=== PATIENT | female | born 1970 | race African-American/Black ===

== ENCOUNTER 2018-05-05 21:55 | Emergency (ER) | payer BC ==
--- NOTE | 2018-05-05 22:43 | EDPHYS ---
Physician Documentation [facility] Name: Nancie Ordonez Age: 47 yrs Sex: Female : 1970 Arrival Date: 05/05/2018 Time: 21:57 Bed 23 Private MD: Bay Atkinson ED Physician Maury Brush HPI: 05/06 02:31 This 47 yrs old Black Female presents to ER via Ambulatory with complaints of Back Pain snw - rad to LE. 02:31 The patient presents with pain that is acute, with no known mechanism of injury, and snw decreased range of motion. The symptoms are located in the Lateral neck pain and posterior right shoulder. Onset: The symptoms/episode began/occurred suddenly, this morning, and became persistent. Location: right arm. Associated signs and symptoms: The patient has no apparent associated signs or symptoms. The problem was sustained from unknown cause. Severity of symptoms: At their worst the symptoms were moderate, severe. The patient has not experienced similar symptoms in the past. It is unknown whether or not the patient has recently seen a physician. 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 - Social history:: Smoking status: Patient/guardian denies using tobacco, Patient uses alcohol, occasionally. Patient/guardian denies using street drugs. - Ebola Screening: : No symptoms or risks identified at this time. ROS: 05/06 02:29 Constitutional: Negative for fever, chills, and weight loss, Eyes: Negative for injury, snw pain, redness, and discharge, ENT: Negative for injury, pain, and discharge, Cardiovascular: Negative for chest pain, palpitations, and edema, Respiratory: Negative for shortness of breath, cough, wheezing, and pleuritic chest pain, Abdomen/GI: Negative for abdominal pain, nausea, vomiting, diarrhea, and constipation, Back: Negative for injury and pain, : Negative for injury, bleeding, discharge, and swelling, Skin: Negative for injury, rash, and discoloration, Neuro: Negative for headache, weakness, numbness, tingling, and seizure. Neck: Positive for pain with movement, tenderness. MS/extremity: Positive for pain, of the neck and shoulder. Exam: 02:28 Constitutional: This is a well developed, well nourished patient who is awake, alert, snw and in no acute distress. Head/Face: Normocephalic, atraumatic. Eyes: Pupils equal round and reactive to light, extra-ocular motions intact. Lids and lashes normal. Conjunctiva and sclera are non-icteric and not injected. Cornea within normal limits. Periorbital areas with no swelling, redness, or edema. ENT: Nares patent. No nasal discharge, no septal abnormalities noted. Tympanic membranes are normal and external auditory canals are clear. Oropharynx with no redness, swelling, or masses, exudates, or evidence of obstruction, uvula midline. Mucous membranes moist. Chest/axilla: Normal chest wall appearance and motion. Nontender with no deformity. No lesions are appreciated. Cardiovascular: Regular rate and rhythm with a normal S1 and S2. No gallops, murmurs, or rubs. Normal PMI, no JVD. No pulse deficits. Respiratory: Lungs have equal breath sounds bilaterally, clear to auscultation and percussion. No rales, rhonchi or wheezes noted. No increased work of breathing, no retractions or nasal flaring. Abdomen/GI: Soft, non-tender, with normal bowel sounds. No distension or tympany. No guarding or rebound. No evidence of tenderness throughout. Back: No spinal tenderness. No costovertebral tenderness. Full range of motion. Skin: Warm, dry with normal turgor. Normal color with no rashes, no lesions, and no evidence of cellulitis. Neuro: Awake and alert, GCS 15, oriented to person, place, time, and situation. Cranial nerves II-XII grossly intact. Motor strength 5/5 in all extremities. Sensory grossly intact. Cerebellar exam normal. Normal gait. Psych: Awake, alert, with orientation to person, place and time. Behavior, mood, and affect are within normal limits. 02:28 Musculoskeletal/extremity: Extremities: grossly normal except: noted in the right lateral neck and posterior shoulder: decreased ROM, pain, ROM: limited active range of motion due to pain, Circulation is intact in all extremities. Sensation intact. 02:28 Neuro: Exam negative for acute changes. Vital Signs: 05/05 22:40 BP 125 / 87; Pulse 70; Resp 18; Temp 98.3(O); Pulse Ox 100% on R/A; Weight 76.2 kg; mg2 Height 5 ft. 3 in. (160.02 cm); Pain 10/10; 23:14 BP 122 / 78; Pulse 80; Resp 18; Pulse Ox 100% on R/A; Pain 4/10; mg2 22:40 Body Mass Index 29.76 (76.20 kg, 160.02 cm) mg2 MDM: 22:26 Patient medically screened. snw 05/06 02:30 Data reviewed: vital signs, nurses notes. Data interpreted: Pulse oximetry: on room air snw is 100 %. Interpretation: normal. Counseling: I had a detailed discussion with the patient and/or guardian regarding: the historical points, exam findings, and any diagnostic results supporting the discharge/admit diagnosis, the need for outpatient follow up, to return to the emergency department if symptoms worsen or persist or if there are any questions or concerns that arise at home. Special discussion: Based on the history and exam findings, there is no indication for further emergent testing or inpatient evaluation. I discussed with the patient/guardian the need to see the primary care provider for further evaluation of the symptoms. Administered Medications: 05/05 22:42 CANCELLED (other intervention used): SOLU-Medrol 125 mg IVP once snw 23:01 Drug: Valium 2 mg Route: PO; mg2 23:01 Follow up: Response: No adverse reaction; Medication administered at discharge. mg2 23:01 Drug: SOLU-Medrol 125 mg Route: IM; Site: right gluteus; mg2 23:01 Follow up: Response: No adverse reaction; Medication administered at discharge. mg2 Disposition: 05/06 06:30 Co-signature as Attending Physician, Maury Brush MD I agree with the assessment and tw4 plan of care. Attestation: The patient's history, exam findings, diagnostics, and a summary of any interventions or procedures was reviewed in detail with Cate GARCIA. Disposition: 05/05/18 22:43 Discharged to Home. Impression: Radiculopathy, cervical region. - Condition is Stable. - Discharge Instructions: Cervical Radiculopathy. - Prescriptions for Prednisone 20 mg Oral Tablet - take 1 tablet by ORAL route every 12 hours for 5 days; 10 tablet. orphenadrine citrate 100 mg Oral Tablet Sustained Release - take 1 tablet by ORAL route 2 times per day As needed; 20 tablet. - Medication Reconciliation Form, Thank You Letter, Antibiotic Education, Prescription Opioid Use form. - Follow up: Bay Atkinson MD; When: 2 - 3 days; Reason: Recheck today's complaints, Continuance of care, Re-evaluation by your physician. Follow up: Emergency Department; When: As needed; Reason: Worsening of condition. Signatures: Cate Kern FNP-C FNP-Csnw Maury Brush MD MD tw4 Chad Hayden RN RN mg2 Corrections: (The following items were deleted from the chart) 05/05 22:42 22:42 SOLU-Medrol 125 mg IVP once ordered. snw snw 23:14 22:43 05/05/2018 22:43 Discharged to Home. Impression: Radiculopathy, cervical region. mg2 Condition is Stable. Forms are Medication Reconciliation Form, Thank You Letter, Antibiotic Education, Prescription Opioid Use. Follow up: Bay Atkinson; When: 2 - 3 days; Reason: Recheck today's complaints, Continuance of care, Re-evaluation by your physician. Follow up: Emergency Department; When: As needed; Reason: Worsening of condition. snw
--- NOTE | 2018-05-05 22:43 | ER ---
Nurse's Notes [facility] Name: Nancie Ordonez Age: 47 yrs Sex: Female : 1970 Arrival Date: 05/05/2018 Time: 21:57 Bed 23 Private MD: Bay Atkinson Diagnosis: Radiculopathy, cervical region Presentation: 05/05 22:35 Presenting complaint: Patient states: she has neck pain radiating to the shoulder and mg2 back since morning. denies trauma. Transition of care: patient was not received from another setting of care. Onset of symptoms was May 05, 2018. Risk Assessment: Do you want to hurt yourself or someone else? Patient reports no desire to harm self or others. Initial Sepsis Screen: Does the patient meet any 2 criteria? No. Patient's initial sepsis screen is negative. Does the patient have a suspected source of infection? No. Patient's initial sepsis screen is negative. Care prior to arrival: None. 22:35 Method Of Arrival: Ambulatory mg2 22:35 Acuity: DEEPALI 4 mg2 Triage Assessment: 23:14 General: Behavior is calm, cooperative. 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 - Social history:: Smoking status: Patient/guardian denies using tobacco, Patient uses alcohol, occasionally. Patient/guardian denies using street drugs. - Ebola Screening: : No symptoms or risks identified at this time. Screenin:41 Abuse screen: Denies threats or abuse. Denies injuries from another. Nutritional mg2 screening: No deficits noted. Tuberculosis screening: No symptoms or risk factors identified. Fall Risk None identified. Assessment: 22:41 General: Appears uncomfortable. Pain: Complains of pain in neck, Pain radiates to mg2 shoulder and back Pain currently is 10 out of 10 on a pain scale. Quality of pain is described as aching, Pain began gradually, this morning Is intermittent, Alleviated by repositioning, relaxation. Neuro: Level of Consciousness is awake, alert, obeys commands, Oriented to person, place, time, situation. Cardiovascular: Capillary refill < 3 seconds Patient's skin is warm and dry. Respiratory: Airway is patent Respiratory effort is even, unlabored, Respiratory pattern is regular, symmetrical. GI: No signs and/or symptoms were reported involving the gastrointestinal system. : No signs and/or symptoms were reported regarding the genitourinary system. EENT: No signs and/or symptoms were reported regarding the EENT system. Derm: Skin is intact, Skin is pink, warm \T\ dry. normal. Musculoskeletal: Circulation, motion, and sensation intact. Reports pain in neck, shoulder and back since morning. Pain is 10 out of 10 on a pain scale. Vital Signs: 22:40 BP 125 / 87; Pulse 70; Resp 18; Temp 98.3(O); Pulse Ox 100% on R/A; Weight 76.2 kg; mg2 Height 5 ft. 3 in. (160.02 cm); Pain 10/10; 23:14 BP 122 / 78; Pulse 80; Resp 18; Pulse Ox 100% on R/A; Pain 4/10; mg2 22:40 Body Mass Index 29.76 (76.20 kg, 160.02 cm) mg2 ED Course: 21:57 Patient arrived in ED. am2 21:57 Bay Atkinson MD is Private Physician. am2 22:25 Cate Kern FNP-C is [facility]. snw 22:26 Maury Brush MD is Attending Physician. snw 22:26 Chad Hayden, NICCI is Primary Nurse. mg2 22:36 Triage completed. mg2 22:41 Arm band placed on. mg2 22:42 Bay Atkinson MD is Referral Physician. snw 22:43 Patient has correct armband on for positive identification. mg2 23:13 No provider procedures requiring assistance completed. Patient did not have IV access mg2 during this emergency room visit. Administered Medications: 22:42 CANCELLED (other intervention used): SOLU-Medrol 125 mg IVP once snw 23:01 Drug: Valium 2 mg Route: PO; mg2 23:01 Follow up: Response: No adverse reaction; Medication administered at discharge. mg2 23:01 Drug: SOLU-Medrol 125 mg Route: IM; Site: right gluteus; mg2 23:01 Follow up: Response: No adverse reaction; Medication administered at discharge. mg2 Outcome: 22:43 Discharge ordered by . snsoo 23:14 Discharged to home ambulatory, with family. mg2 23:14 Condition: stable 23:14 Discharge instructions given to patient, family, Instructed on discharge instructions, follow up and referral plans. medication usage, Demonstrated understanding of instructions, follow-up care, medications, Prescriptions given X 2. 23:14 Patient left the ED. mg2 Signatures: Cate Kern, PROCESS ENG-C PROCESS ENG-Csnw Luly Villalpando am2 Chad Hayden, RN RN mg2
[2018-05-05] MEDS ORDERED: METHYLPREDNISOLONE 125 MG INJ ONE (23:00)
[2018-05-05] MEDS ORDERED: DIAZEPAM 2 MG TABLET ONE (23:01)
== END 2018-05-05 23:14 | disposition home or self-care (01) ==
LOC: ER 21:55
DX: M54.12 Radiculopathy, cervical region (principal); I10 Essential (primary) hypertension; Z88.6 Allergy status to analgesic agent
CPT/HCPCS: 96372; 99283; J2930

== ENCOUNTER 2019-07-28 10:05 | Emergency (ER) | payer BC ==
--- OUTSIDE RECORDS SUMMARY | 2019-07-28 10:07 | XMS REPORT ---
:1970 [facility] Address [address] [place] [address] Dr. Crawford [address] [place] [id number] Care Team Providers Name Role Phone Unavailable Unavailable Unavailable Payers Payer Name Policy Type Policy Number Effective Date Expiration Date Problems This patient has no known problems. Allergies, Adverse Reactions, Alerts Allergy Allergy Status Severity Reaction(s) Onset Inactive Treating Comments Name Type Date Date Clinician naproxen MAYELA Active YASMINE 2017-10 00:00:0 0 Medications This patient has no known medications.
[2019-07-28] MEDS ORDERED: OSELTAMIVIR 75 MG CAP ONE (12:16)
--- NOTE | 2019-07-28 12:23 | ER ---
Nurse's Notes [facility] Name: Nancie Ordonez Age: 48 yrs Sex: Female : 1970 Arrival Date: 07/28/2019 Time: 10:06 Bed 13 Private MD: Diagnosis: Malaise and fatigue Presentation: 07/28 10:11 Presenting complaint: Patient states: I have been feeling sick since last week, having la1 body aches, chills sore throat. Transition of care: patient was not received from another setting of care. Onset of symptoms was July 28, 2019. Risk Assessment: Do you want to hurt yourself or someone else? Patient reports no desire to harm self or others. Initial Sepsis Screen: Does the patient meet any 2 criteria? No. Patient's initial sepsis screen is negative. Does the patient have a suspected source of infection? No. Patient's initial sepsis screen is negative. Care prior to arrival: None. 10:11 Method Of Arrival: Ambulatory la1 10:11 Acuity: DEEPALI 4 la1 Historical: - Allergies: 10:12 Naproxen; la1 - PMHx: 10:12 Arthritis; Gout; Hypertension; la1 - Immunization history:: Adult Immunizations up to date. - Social history:: Smoking status: Patient/guardian denies using tobacco. - Ebola Screening: : No symptoms or risks identified at this time. Screenin:45 Abuse screen: Denies threats or abuse. Nutritional screening: No deficits noted. aa5 Tuberculosis screening: No symptoms or risk factors identified. Fall Risk None identified. Assessment: 11:30 General: Appears comfortable, Behavior is calm, cooperative. Pain: Complains of pain in aa5 whole body Pain does not radiate. Pain currently is 10 out of 10 on a pain scale. Quality of pain is described as aching, Pain began 5 days ago Is continuous. Neuro: Level of Consciousness is awake, alert, obeys commands, Oriented to person, place, time, situation. Cardiovascular: Heart tones S1 S2 present Rhythm is regular. Respiratory: Reports cough Airway is patent Respiratory effort is even, unlabored, Respiratory pattern is regular, symmetrical. GI: Abdomen is round Bowel sounds present X 4 quads. Abd is soft and non tender X 4 quads. : No signs and/or symptoms were reported regarding the genitourinary system. EENT: Reports nasal congestion. Derm: Skin is dry, Skin is normal, Skin temperature is warm. Musculoskeletal: Range of motion: intact in all extremities. 12:35 Reassessment: Pt requesting prescription for muscle relaxants, pt requesting to speak aa5 to MD before d/c home. MD notified. . 12:40 Reassessment: MD at bedside speaking to patient. . aa5 Vital Signs: 10:12 BP 133 / 98; Pulse 95; Resp 16; Temp 97.7; Pulse Ox 100% ; Weight 78.47 kg; Height 5 la1 ft. 3 in. (160.02 cm); 11:50 BP 141 / 99; Pulse 80; Resp 14 S; Pulse Ox 100% on R/A; Pain 10/10; aa5 10:12 Body Mass Index 30.65 (78.47 kg, 160.02 cm) la1 ED Course: 10:06 Patient arrived in ED. as 10:12 Triage completed. la1 10:12 Arm band placed on right wrist. la1 11:28 Yemi Oliveira MD is Attending Physician. vargas 11:45 Patient has correct armband on for positive identification. Bed in low position. Call aa5 light in reach. Side rails up X 1. 11:47 Barbara Washington, RN is Primary Nurse. aa5 12:42 No provider procedures requiring assistance completed. Patient did not have IV access aa5 during this emergency room visit. Administered Medications: 12:41 Drug: Tamiflu 75 mg Route: PO; aa5 12:41 Follow up: Response: Medication administered at discharge. aa5 Outcome: 12:22 Discharge ordered by . [facility] 12:42 Discharged to home ambulatory. aa5 12:42 Condition: stable 12:42 Discharge instructions given to patient, Instructed on discharge instructions, follow up and referral plans. medication usage, Demonstrated understanding of instructions, follow-up care, medications, Prescriptions given X 1. 12:42 Patient left the ED. aa5 Signatures: Yemi Oliveira MD MD cha Martinez, Amelia as Calderon, Audri, RN RN aa5 Bhaskar Garcia RN RN la1
--- NOTE | 2019-07-28 12:23 | EDPHYS ---
Physician Documentation [facility] Name: Nancie Ordonez Age: 48 yrs Sex: Female : 1970 Arrival Date: 07/28/2019 Time: 10:06 Bed 13 Private MD: ED Physician Yemi Oliveira HPI: 07/28 12:13 This 48 yrs old Black Female presents to ER via Ambulatory with complaints of Flu vargas Symptoms. 12:13 weakness, body aches. The patient or guardian reports cough. Onset: The vargas symptoms/episode began/occurred 2 day(s) ago. Severity of symptoms: At their worst the symptoms were mild, in the emergency department the symptoms are unchanged. Associated signs and symptoms: The patient has no apparent associated signs or symptoms. Historical: - Allergies: 10:12 Naproxen; la1 - PMHx: 10:12 Arthritis; Gout; Hypertension; la1 - Immunization history:: Adult Immunizations up to date. - Social history:: Smoking status: Patient/guardian denies using tobacco. - Ebola Screening: : No symptoms or risks identified at this time. ROS: 12:16 Constitutional: Negative for fever, chills, and weight loss, Eyes: Negative for injury, vargas pain, redness, and discharge, ENT: Negative for injury, pain, and discharge, Neck: Negative for injury, pain, and swelling, Cardiovascular: Negative for chest pain, palpitations, and edema, Respiratory: Negative for shortness of breath, cough, wheezing, and pleuritic chest pain, Abdomen/GI: Negative for abdominal pain, nausea, vomiting, diarrhea, and constipation, Back: Negative for injury and pain, : Negative for injury, bleeding, discharge, and swelling, MS/Extremity: Negative for injury and deformity, Skin: Negative for injury, rash, and discoloration, Neuro: Negative for headache, weakness, numbness, tingling, and seizure, Psych: Negative for depression, anxiety, suicide ideation, homicidal ideation, and hallucinations, Allergy/Immunology: Negative for hives, rash, and allergies, Endocrine: Negative for neck swelling, polydipsia, polyuria, polyphagia, and marked weight changes, Hematologic/Lymphatic: Negative for swollen nodes, abnormal bleeding, and unusual bruising. Exam: 12:16 Constitutional: This is a well developed, well nourished patient who is awake, alert, vragas and in no acute distress. Head/Face: Normocephalic, atraumatic. Eyes: Pupils equal round and reactive to light, extra-ocular motions intact. Lids and lashes normal. Conjunctiva and sclera are non-icteric and not injected. Cornea within normal limits. Periorbital areas with no swelling, redness, or edema. ENT: Nares patent. No nasal discharge, no septal abnormalities noted. Tympanic membranes are normal and external auditory canals are clear. Oropharynx with no redness, swelling, or masses, exudates, or evidence of obstruction, uvula midline. Mucous membranes moist. Neck: Trachea midline, no thyromegaly or masses palpated, and no cervical lymphadenopathy. Supple, full range of motion without nuchal rigidity, or vertebral point tenderness. No Meningismus. Chest/axilla: Normal chest wall appearance and motion. Nontender with no deformity. No lesions are appreciated. Cardiovascular: Regular rate and rhythm with a normal S1 and S2. No gallops, murmurs, or rubs. Normal PMI, no JVD. No pulse deficits. Respiratory: Lungs have equal breath sounds bilaterally, clear to auscultation and percussion. No rales, rhonchi or wheezes noted. No increased work of breathing, no retractions or nasal flaring. Abdomen/GI: Soft, non-tender, with normal bowel sounds. No distension or tympany. No guarding or rebound. No evidence of tenderness throughout. Back: No spinal tenderness. No costovertebral tenderness. Full range of motion. Female : Normal external genitalia. Skin: Warm, dry with normal turgor. Normal color with no rashes, no lesions, and no evidence of cellulitis. MS/ Extremity: Pulses equal, no cyanosis. Neurovascular intact. Full, normal range of motion. Neuro: Awake and alert, GCS 15, oriented to person, place, time, and situation. Cranial nerves II-XII grossly intact. Motor strength 5/5 in all extremities. Sensory grossly intact. Cerebellar exam normal. Normal gait. Psych: Awake, alert, with orientation to person, place and time. Behavior, mood, and affect are within normal limits. Vital Signs: 10:12 BP 133 / 98; Pulse 95; Resp 16; Temp 97.7; Pulse Ox 100% ; Weight 78.47 kg; Height 5 la1 ft. 3 in. (160.02 cm); 11:50 BP 141 / 99; Pulse 80; Resp 14 S; Pulse Ox 100% on R/A; Pain 06/12; aa5 10:12 Body Mass Index 30.65 (78.47 kg, 160.02 cm) la1 MDM: 11:28 Patient medically screened. [facility] 11:28 Patient medically screened. [facility] 12:19 Data reviewed: vital signs, nurses notes, lab test result(s), Flu: negative. [facility] 07/28 10:12 Order name: Strep; Complete Time: 12:10 [facility] 07/28 10:12 Order name: Flu; Complete Time: 12:10 [facility] 07/28 10:43 Order name: Throat Culture EDTN Administered Medications: 12:41 Drug: Tamiflu 75 mg Route: PO; aa 12:41 Follow up: Response: Medication administered at discharge. aa5 Disposition: 07/28/19 12:22 Discharged to Home. Impression: Malaise and fatigue. - Condition is Stable. - Discharge Instructions: Weakness, Weakness, [id number]. - Prescriptions for Tamiflu 75 mg Oral Capsule - take 1 tablet by ORAL route every 12 hours for 5 days; 10 tablet. - Medication Reconciliation Form, Thank You Letter, Antibiotic Education, Prescription Opioid Use, Work release form form. - Follow up: Private Physician; When: 2 - 3 days; Reason: Recheck today's complaints, Continuance of care, Re-evaluation by your physician. - Problem is new. - Symptoms have improved. 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 Impression: Malaise and fatigue. Condition aa5 is Stable. Forms are Medication Reconciliation Form, Thank You Letter, Antibiotic Education, Prescription Opioid Use. Follow up: Private Physician; When: 2 - 3 days; Reason: Recheck today's complaints, Continuance of care, Re-evaluation by your physician. Problem is new. Symptoms have improved. [facility]
[2019-07-28 13:08] VITALS: TEMP 97.7; O2SAT 100
[2019-07-28 13:10] VITALS: BP 141/99
== END 2019-07-28 12:42 | disposition home or self-care (01) ==
LOC: ER 10:05
DX: R53.81 Other malaise (principal); R53.83 Other fatigue; I10 Essential (primary) hypertension; Z88.6 Allergy status to analgesic agent
CPT/HCPCS: 87070; 87081; 87804; 99283

== ENCOUNTER 2019-09-26 16:37 | Emergency (ER) | payer BC, OTHER, SELFPAY ==
--- OUTSIDE RECORDS SUMMARY | 2019-09-26 16:39 | XMS REPORT ---
:1970 [facility] Address [address] [place] [address] Dr. Crawford [address] [place] [id number] Care Team Providers Name Role Phone Unavailable [...]
[2019-09-26] MEDS ORDERED: FLUCONAZOLE 100 MG TAB ONE (18:05)
[2019-09-26] MEDS ORDERED: PROMETHAZINE 25 MG TABLET ONE (18:05)
[2019-09-26] MEDS ORDERED: TRAMADOL HCL 50 MG TAB ONE (18:20)
[2019-09-26 18:44] LABS: Urine Blood 2+ (NEG); Urine Glucose NEGATIVE (NEG); Urine Protein NEGATIVE (NEG); Urine Specific Gravity 1.025 (1.005-1.030); Urine pH 5.5 (5.0-7.0)
[2019-09-26 19:26] LABS: Urine Bacteria >50 /HPF (<20)
[2019-09-26 19:27] LABS: Urine Culture Reflex Order NOT NEEDED
--- NOTE | 2019-09-26 19:30 | ER ---
Nurse's Notes [facility] Name: Nancie Ordonez Age: 48 yrs Sex: Female : 1970 Arrival Date: 09/26/2019 Time: 16:38 Bed 7 Private MD: Diagnosis: Urinary tract infection, site not specified Presentation: 09/26 16:58 Presenting complaint: Patient states: headache, productive cough, sore throat, sneezing aa5 that began 1 week ago. Transition of care: patient was not received from another setting of care. Onset of symptoms was September 2019. Risk Assessment: Do you want to hurt yourself or someone else? Patient reports no desire to harm self or others. Initial Sepsis Screen: Does the patient meet any 2 criteria? HR > 90 bpm. Does the patient have a suspected source of infection? Yes: Productive cough/pneumonia. Care prior to arrival: None. 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 - Coronavirus screen:: The patient has NOT traveled to [place], [place], or [place] in the past 14 days. The patient has NOT had contact with known/suspected case of Coronavirus?. - Social history:: Smoking status: Patient denies any tobacco usage or history of. - Ebola Screening: : No symptoms or risks identified at this time. Screenin:09 Abuse screen: Denies threats or abuse. Denies injuries from another. Nutritional jl7 screening: No deficits noted. Tuberculosis screening: No symptoms or risk factors identified. Fall Risk None identified. Assessment: 18:09 General: Appears in no apparent distress. uncomfortable, Behavior is calm, cooperative, jl7 appropriate for age. Pain: Complains of pain in DURON Pain currently is 9 out of 10 on a pain scale. Neuro: Level of Consciousness is awake, alert, obeys commands, Oriented to person, place, time, situation, Moves all extremities. Full function Gait is steady, Speech is normal. Cardiovascular: Patient's skin is warm and dry. Respiratory: Airway is patent Respiratory effort is even, unlabored, Respiratory pattern is regular, symmetrical. GI: Reports nausea, vomiting. : No signs and/or symptoms were reported regarding the genitourinary system. EENT: No signs and/or symptoms were reported regarding the EENT system. Derm: Skin is dry, Skin is normal, Skin temperature is warm. 19:15 Reassessment: Patient is alert, oriented x 3, equal unlabored respirations, skin vc warm/dry/pink. Patient resting with eyes closed, at bedside. 19:15 General: Appears in no apparent distress. uncomfortable, Behavior is calm, quiet. vc Neuro: Level of Consciousness is awake, obeys commands, lethargic, Oriented to person, place, time, situation. Cardiovascular: Patient's skin is warm and dry. Respiratory: Respiratory effort is even, unlabored. GI: No signs and/or symptoms were reported involving the gastrointestinal system. : No signs and/or symptoms were reported regarding the genitourinary system. EENT: Reports photophobia. Derm: Skin temperature is warm. Musculoskeletal: Circulation, motion, and sensation intact. Range of motion: intact in all extremities. Vital Signs: 16:59 BP 144 / 97; Pulse 98; Resp 18 S; Temp 98.7(O); Pulse Ox 100% on R/A; Weight 81.65 kg aa5 (R); Height 5 ft. 3 in. (160.02 cm) (R); Pain 9/10; 18:45 BP 130 / 83; Pulse 115; Resp 16 S; Pulse Ox 100% on R/A; jl7 19:00 BP 122 / 76; Pulse 85; Resp 18; Pulse Ox 100% on R/A; vc 19:30 BP 116 / 81; Pulse 85; Resp 15; Pulse Ox 100% on R/A; vc 16:59 Body Mass Index 31.89 (81.65 kg, 160.02 cm) aa5 ED Course: 16:38 Patient arrived in ED. as 16:58 Arm band placed on. aa5 16:59 Triage completed. aa5 17:06 Tiago Reyes, RN is Primary Nurse. bp 17:07 Cate Kern FNP-C is PHCP. snw 17:07 Shai Guzman MD is Attending Physician. snw 18:09 Patient has correct armband on for positive identification. Bed in low position. Call jl7 light in reach. Side rails up X 1. Pulse ox on. NIBP on. 18:14 Primary Nurse role handed off by Tiago Reyes RN jl7 18:14 Aniyah Merrill RN is Primary Nurse. jl7 19:40 No provider procedures requiring assistance completed. vc 19:40 Patient did not have IV access during this emergency room visit. vc 19:43 Primary Nurse role handed off by Aniyah Merrill RN vc 19:43 Julia Dale, NICCI is Primary Nurse. vc Administered Medications: 18:11 Drug: Phenergan 25 mg Route: PO; jl7 18:42 Follow up: Response: No adverse reaction; Nausea is decreased jl7 18:14 Drug: DiFLUcan 400 mg Route: PO; jl7 18:43 Follow up: Response: No adverse reaction jl7 18:23 Drug: UltRAM 50 mg Route: PO; jl7 19:42 Follow up: Response: No adverse reaction; Pain is decreased vc 19:42 Drug: Macrobid 100 mg Route: PO; vc 19:42 Follow up: Response: Medication administered at discharge. vc Outcome: 19:29 Discharge ordered by . snw 19:42 Discharged to home ambulatory, with significant other. vc 19:42 Condition: good 19:42 Discharge instructions given to patient, significant other, Instructed on discharge instructions, medication usage, Demonstrated understanding of instructions, follow-up care, medications, Prescriptions given X 2. 19:43 Patient left the ED. vc Signatures: Cate Kern FNP-C [employer] OPERATOR-Csnw Sarah Garzon Audri, RN RN aa5 Aniyah Merrill, NICCI RN jl7 Tiago Reyes, NICCI RN bp Julia Dale, NICCI RN vc Corrections: (The following items were deleted from the chart) 21:28 21:26 No provider procedures requiring assistance completed. vc vc :28 21:28 Pain: Also complains of vc vc
--- NOTE | 2019-09-26 19:30 | EDPHYS ---
Physician Documentation [facility] Name: Nancie Ordonez Age: 48 yrs Sex: Female : 1970 Arrival Date: 09/26/2019 Time: 16:38 Bed 7 Private MD: ED Physician Shai Guzman HPI: 09/26 18:43 This 48 yrs old Black Female presents to ER via Ambulatory with complaints of Headache. snw 18:43 The patient complains of pain to the top of head and forehead. The patient describes snw the headache as a pressure. Onset: The symptoms/episode began/occurred 1 week(s) ago, and became persistent. Associated signs and symptoms: The patient has no apparent associated signs or symptoms. Headache History: Denies prior headaches. The symptoms are alleviated by nothing. The patient has not experienced similar symptoms in the past. pt had dental work 3 weeks ago, abx for about 2 weeks, completed one week ago. 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 - Coronavirus screen:: The patient has NOT traveled to [place], [place], or [place] in the past 14 days. The patient has NOT had contact with known/suspected case of Coronavirus?. - Social history:: Smoking status: Patient denies any tobacco usage or history of. - Ebola Screening: : No symptoms or risks identified at this time. ROS: 18:42 Constitutional: Negative for fever, chills, and weight loss, Eyes: Negative for injury, snw pain, redness, and discharge, ENT: Negative for injury, pain, and discharge, Neck: Negative for injury, pain, and swelling, Cardiovascular: Negative for chest pain, palpitations, and edema, Respiratory: Negative for shortness of breath, cough, wheezing, and pleuritic chest pain, Abdomen/GI: Negative for abdominal pain, nausea, vomiting, diarrhea, and constipation, Back: Negative for injury and pain, : Negative for injury, bleeding, discharge, and swelling, MS/Extremity: Negative for injury and deformity, Skin: Negative for injury, rash, and discoloration. 18:42 Neuro: Positive for headache, of the top of head and forehead. Exam: 18:27 Constitutional: This is a well developed, well nourished patient who is awake, alert, snw and in no acute distress. Head/Face: Normocephalic, atraumatic. Eyes: Pupils equal round and reactive to light, extra-ocular motions intact. Lids and lashes normal. Conjunctiva and sclera are non-icteric and not injected. Cornea within normal limits. Periorbital areas with no swelling, redness, or edema. Neck: Trachea midline, no thyromegaly or masses palpated, and no cervical lymphadenopathy. Supple, full range of motion without nuchal rigidity, or vertebral point tenderness. No Meningismus. Chest/axilla: Normal chest wall appearance and motion. Nontender with no deformity. No lesions are appreciated. Cardiovascular: Regular rate and rhythm with a normal S1 and S2. No gallops, murmurs, or rubs. Normal PMI, no JVD. No pulse deficits. Respiratory: Lungs have equal breath sounds bilaterally, clear to auscultation and percussion. No rales, rhonchi or wheezes noted. No increased work of breathing, no retractions or nasal flaring. Abdomen/GI: Soft, non-tender, with normal bowel sounds. No distension or tympany. No guarding or rebound. No evidence of tenderness throughout. Back: No spinal tenderness. No costovertebral tenderness. Full range of motion. Skin: Warm, dry with normal turgor. Normal color with no rashes, no lesions, and no evidence of cellulitis. MS/ Extremity: Pulses equal, no cyanosis. Neurovascular intact. Full, normal range of motion. Neuro: Awake and alert, GCS 15, oriented to person, place, time, and situation. Cranial nerves II-XII grossly intact. Motor strength 5/5 in all extremities. Sensory grossly intact. Cerebellar exam normal. Normal gait. Psych: Awake, alert, with orientation to person, place and time. Behavior, mood, and affect are within normal limits. 18:27 ENT: Ear canal(s): are normal, TM's: are normal, Nose: is normal, Mouth: Oral mucosa: noted to have obvious thrush, Posterior pharynx: is normal, erythema, that is mild, Voice: is normal. Vital Signs: 16:59 BP 144 / 97; Pulse 98; Resp 18 S; Temp 98.7(O); Pulse Ox 100% on R/A; Weight 81.65 kg aa5 (R); Height 5 ft. 3 in. (160.02 cm) (R); Pain 9/10; 18:45 BP 130 / 83; Pulse 115; Resp 16 S; Pulse Ox 100% on R/A; jl7 19:00 BP 122 / 76; Pulse 85; Resp 18; Pulse Ox 100% on R/A; vc 19:30 BP 116 / 81; Pulse 85; Resp 15; Pulse Ox 100% on R/A; vc 16:59 Body Mass Index 31.89 (81.65 kg, 160.02 cm) aa5 MDM: 17:08 Patient medically screened. snw 19:30 Data reviewed: vital signs, nurses notes. Data interpreted: Pulse oximetry: on room air snw is 100 %. Interpretation: normal. Counseling: I had a detailed discussion with the patient and/or guardian regarding: the historical points, exam findings, and any diagnostic results supporting the discharge/admit diagnosis, lab results, the need for outpatient follow up, to return to the emergency department if symptoms worsen or persist or if there are any questions or concerns that arise at home. Special discussion: I have referred the patient to see his PCP for further evaluation of high blood pressure. Based on the history and exam findings, there is no indication for further emergent testing or inpatient evaluation. I discussed with the patient/guardian the need to see the primary care provider for further evaluation of the symptoms. 09/26 17:51 Order name: Urine Culture snw 09/26 17:51 Order name: Urine Microscopic Only; Complete Time: 19:28 snw 09/26 18:21 Order name: Urine Dipstick--Ancillary (enter results); Complete Time: 18:44 eb 09/26 18:21 Order name: Urine --Ancillary (enter results); Complete Time: 18:44 eb 09/26 17:51 Order name: Urine Test (obtain specimen); Complete Time: 18:14 snw 09/26 17:51 Order name: Urine Dipstick-Ancillary (obtain specimen); Complete Time: 18:14 snw Administered Medications: 18:11 Drug: Phenergan 25 mg Route: PO; jl7 18:42 Follow up: Response: No adverse reaction; Nausea is decreased jl7 18:14 Drug: DiFLUcan 400 mg Route: PO; jl7 18:43 Follow up: Response: No adverse reaction jl7 18:23 Drug: UltRAM 50 mg Route: PO; jl7 19:42 Follow up: Response: No adverse reaction; Pain is decreased vc 19:42 Drug: Macrobid 100 mg Route: PO; vc 19:42 Follow up: Response: Medication administered at discharge. vc Disposition: 09/27 02:48 Co-signature as Attending Physician, Shai Guzman MD I agree with the assessment and kdr plan of care. Disposition: 09/26/19 19:29 Discharged to Home. Impression: Urinary tract infection, site not specified. - Condition is Stable. - Discharge Instructions: General Headache Without Cause, Urinary Tract Infection, Adult, Rehydration, Adult. - Prescriptions for Macrobid 100 mg Oral Capsule - take 1 capsule by ORAL route every 12 hours for 10 days; 20 capsule. promethazine 25 mg Oral Tablet - take 1 tablet by ORAL route every 6 hours As needed; 20 tablet. - Medication Reconciliation Form, Thank You Letter, Antibiotic Education, Prescription Opioid Use form. - Follow up: Emergency Department; When: As needed; Reason: Worsening of condition. Follow up: Private Physician; When: 2 - 3 days; Reason: Recheck today's complaints, Continuance of care, Re-evaluation by your physician. Signatures: Dispatcher [employer] EDWI Shai Guzman MD MD [facility] Cate Kern, LABORER FILTER PLANT-C LABORER FILTER PLANT-Csnw Barbara Washington RN RN joon5 Aniyah Merrill RN RN jl7 Julia Dale RN RN vc Corrections: (The following items were deleted from the chart) 09/26 19:43 19:29 09/26/2019 19:29 Discharged to Home. Impression: Urinary tract infection, site vc not specified. Condition is Stable. Forms are Medication Reconciliation Form, Thank You Letter, Antibiotic Education, Prescription Opioid Use. Follow up: Emergency Department; When: As needed; Reason: Worsening of condition. Follow up: Private Physician; When: 2 - 3 days; Reason: Recheck today's complaints, Continuance of care, Re-evaluation by your physician. snw
[2019-09-26] MEDS ORDERED: NITROFURAN MACRO 100 MG CAP PO ONE (19:34)
[2019-09-26 19:48] VITALS: TEMP 98.7; O2SAT 100
[2019-09-26 19:50] VITALS: BP 130/83
== END 2019-09-26 19:43 | disposition home or self-care (01) ==
LOC: ER 16:37
DX: N39.0 Urinary tract infection, site not specified (principal); I10 Essential (primary) hypertension; M10.9 Gout, unspecified; Z88.6 Allergy status to analgesic agent
CPT/HCPCS: 87088; 87086; 81025; 87077 ×2; 87186 ×2; 99283; Q0169; 81003; 81015

== ENCOUNTER 2020-01-13 14:53 | Emergency (ER) | payer OTHER ==
--- NOTE | 2020-01-13 15:27 | ER ---
Nurse's Notes [facility] Name: Nancie Ordonez Age: 49 yrs Sex: Female : 1970 Arrival Date: 01/13/2020 Time: 14:56 Bed 7 Private MD: Diagnosis: Periapical abscess without sinus Presentation: 01/12 15:01 Chief complaint: Patient states: Toothache radiating to face, jaw and L side of head.. ca1 Coronavirus screen: Proceed with normal triage. Patient denies a cough. Patient denies shortness of breath or difficulty breathing. Patient denies measured and/or subjective temperature greater than 100.4F prior to today's visit. Patient denies travel on a cruise ship or to a country the [facility] currently lists as an affected area. Patient denies contact with known and/or suspected case of COVID-19. Ebola Screen: Patient negative for fever greater than or equal to 101.5 degrees Fahrenheit, and additional compatible Ebola Virus Disease symptoms Patient denies exposure to infectious person. Patient denies travel to an Ebola-affected area in the 21 days before illness onset. No symptoms or risks identified at this time. Initial Sepsis Screen: Does the patient meet any 2 criteria? No. Patient's initial sepsis screen is negative. Does the patient have a suspected source of infection? No. Patient's initial sepsis screen is negative. Risk Assessment: Do you want to hurt yourself or someone else? Patient reports no desire to harm self or others. Onset of symptoms was January 13, 2020. 15:01 Method Of Arrival: Ambulatory ca1 15:01 Acuity: DEEPALI 4 ca1 Triage Assessment: 15:10 Headache History: The patient has had previous headaches and this one is similar to rb1 previous episodes. 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 - Social history:: Smoking status: Patient denies any tobacco usage or history of. Screenin:10 Abuse screen: Denies threats or abuse. Nutritional screening: No deficits noted. rb1 Tuberculosis screening: No symptoms or risk factors identified. Fall Risk None identified. Assessment: 15:10 General: Appears uncomfortable, Behavior is calm, cooperative, Denies fever. Pain: rb1 Complains of pain in lower left first molar (#19) Pain radiates to left side of face Pain currently is 10 out of 10 on a pain scale. Pain began x 3 weeks. Neuro: Level of Consciousness is awake, alert, obeys commands, Oriented to person, place, time, situation. Cardiovascular: Capillary refill < 3 seconds. Respiratory: Airway is patent Respiratory effort is even, unlabored, Respiratory pattern is regular, symmetrical. GI: No signs and/or symptoms were reported involving the gastrointestinal system. : No signs and/or symptoms were reported regarding the genitourinary system. EENT: Reports pain in lower left first molar (#19). Derm: Skin is dry, Skin is normal, Skin temperature is warm. Vital Signs: 15:01 BP 144 / 91; Pulse 89; Resp 17 S; Temp 98.2(TE); Pulse Ox 100% on R/A; Weight 82.1 kg ca1 (R); Height 5 ft. 3 in. (160.02 cm) (R); Pain 10/10; 15:01 Body Mass Index 32.06 (82.10 kg, 160.02 cm) ca1 [place] Coma Score: 15:22 Eye Response: spontaneous(4). Verbal Response: oriented(5). Motor Response: obeys kb commands(6). Total: 15. ED Course: 14:56 Patient arrived in ED. mr 15:05 Triage completed. ca1 15:06 [facility] Do[facility]C [facility] kb 15:06 Yemi Oliveira MD is Attending Physician. kb 15:07 Arm band placed on right wrist. ca1 15:10 Patient has correct armband on for positive identification. Bed in low position. Call rb1 light in reach. Side rails up X 1. Pulse ox on. NIBP on. 15:13 Yojana Monsalve, RN is Primary Nurse. rb1 16:00 No provider procedures requiring assistance completed. Patient did not have IV access rb1 during this emergency room visit. Administered Medications: 15:40 Drug: Augmentin 875 mg Route: PO; rb1 16:00 Follow up: Response: No adverse reaction rb1 15:40 Drug: traMADol 50 mg Route: PO; rb1 16:00 Follow up: Response: No adverse reaction rb1 15:45 Drug: Viscous Lidocaine Liquid (4 %) 5 ml Route: Mucous Membrane; rb1 Outcome: 15:27 Discharge ordered by . raquel 16:00 Patient left the ED. rb1 16:00 Discharged to home ambulatory. rb1 16:00 Condition: stable 16:00 Discharge instructions given to patient, Instructed on discharge instructions, follow up and referral plans. medication usage, Demonstrated understanding of instructions, follow-up care, medications, Prescriptions given X 1. Signatures: Pat Doherty, FLIGHT SURGEON-C FLIGHT SURGEON-Haylie Felix MonsalveYojana, RN RN rb1 Mallory Mathews RN RN ca1 Corrections: (The following items were deleted from the chart) 15:07 15:01 Pulse 89bpm; Resp 17bpm; Spontaneous; Pulse Ox 100% RA; Temp 98.2F Temporal; 82.1 ca1 kg Reported; Height 5 ft. 3 in. Reported; BMI: 32.0; Pain 10/10; ca1 16:22 16:21 Patient left the ED. rb1 rb1 16:31 16:21 Patient left the ED. rb1 rb1
--- NOTE | 2020-01-13 15:27 | EDPHYS ---
Physician Documentation [facility] Name: Nancie Ordonez Age: 49 yrs Sex: Female : 1970 Arrival Date: 01/13/2020 Time: 14:56 Bed 7 Private MD: CHERRIE Physician Yemi Oliveira HPI: 01/12 15:23 This 49 yrs old Black Female presents to ER via Ambulatory with complaints of Headache. kb 15:23 The patient presents with pain, redness, swelling. The problem is located in the lower kb left first molar (#19). Onset: The symptoms/episode began/occurred 3 week(s) ago, and became worse. Duration: The symptoms are continuous. Modifying factors: The symptoms are alleviated by nothing, the symptoms are aggravated by nothing. Associated signs and symptoms: Pertinent positives: pain, redness in area, swelling, Pertinent negatives: anorexia, chills, dysphagia, fever, inability to eat, nausea, vomiting. Severity of symptoms: At their worst the symptoms were moderate, in the emergency department the symptoms are unchanged. The patient has experienced similar episodes in the past. The patient has not recently seen a physician. Pt states she has had issues with this tooth for a long time and has seen a few dentists. States "I pay them, but they don't ever do anything. They just tell me what needs to be done." States this episode of pain started 3 weeks ago and it has been getting worse. . 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 - Social history:: Smoking status: Patient denies any tobacco usage or history of. ROS: 15:22 Constitutional: Negative for fever, chills, and weight loss, Neck: Negative for injury, kb pain, and swelling, Cardiovascular: Negative for chest pain, palpitations, and edema, Respiratory: Negative for shortness of breath, cough, wheezing, and pleuritic chest pain, Abdomen/GI: Negative for abdominal pain, nausea, vomiting, diarrhea, and constipation, Back: Negative for injury and pain, MS/Extremity: Negative for injury and deformity, Skin: Negative for injury, rash, and discoloration, Neuro: Negative for headache, weakness, numbness, tingling, and seizure. 15:22 ENT: Positive for dental pain. Exam: 15:22 Constitutional: This is a well developed, well nourished patient who is awake, alert, kb and in no acute distress. Head/Face: Normocephalic, atraumatic. Neck: Trachea midline, no thyromegaly or masses palpated, and no cervical lymphadenopathy. Supple, full range of motion without nuchal rigidity, or vertebral point tenderness. No Meningismus. Chest/axilla: Normal chest wall appearance and motion. Nontender with no deformity. No lesions are appreciated. Cardiovascular: Regular rate and rhythm with a normal S1 and S2. No gallops, murmurs, or rubs. Normal PMI, no JVD. No pulse deficits. Respiratory: Lungs have equal breath sounds bilaterally, clear to auscultation and percussion. No rales, rhonchi or wheezes noted. No increased work of breathing, no retractions or nasal flaring. Abdomen/GI: Soft, non-tender, with normal bowel sounds. No distension or tympany. No guarding or rebound. No evidence of tenderness throughout. Skin: Warm, dry with normal turgor. Normal color with no rashes, no lesions, and no evidence of cellulitis. MS/ Extremity: Pulses equal, no cyanosis. Neurovascular intact. Full, normal range of motion. Neuro: Awake and alert, GCS 15, oriented to person, place, time, and situation. Cranial nerves II-XII grossly intact. Motor strength 5/5 in all extremities. Sensory grossly intact. Cerebellar exam normal. Normal gait. 15:22 ENT: Dental exam: dental caries, that is moderate, pain, that is severe, specifically in the lower left first molar (#19). Vital Signs: 15:01 BP 144 / 91; Pulse 89; Resp 17 S; Temp 98.2(TE); Pulse Ox 100% on R/A; Weight 82.1 kg ca1 (R); Height 5 ft. 3 in. (160.02 cm) (R); Pain 10/10; 15:01 Body Mass Index 32.06 (82.10 kg, 160.02 cm) ca1 [place] Coma Score: 15:22 Eye Response: spontaneous(4). Verbal Response: oriented(5). Motor Response: obeys kb commands(6). Total: 15. MDM: 15:08 Patient medically screened. kb 15:22 Data reviewed: vital signs, nurses notes. Data interpreted: Pulse oximetry: on room air kb is 100 %. Interpretation: normal. 15:26 Counseling: I had a detailed discussion with the patient and/or guardian regarding: the kb historical points, exam findings, and any diagnostic results supporting the discharge/admit diagnosis, the need for outpatient follow up, a dentist, to return to the emergency department if symptoms worsen or persist or if there are any questions or concerns that arise at home. ED course: Pt educated to call dentist today to make appt. Verbal understanding received. . Administered Medications: 15:40 Drug: Augmentin 875 mg Route: PO; rb1 16:00 Follow up: Response: No adverse reaction rb1 15:40 Drug: traMADol 50 mg Route: PO; rb1 16:00 Follow up: Response: No adverse reaction rb1 15:45 Drug: Viscous Lidocaine Liquid (4 %) 5 ml Route: Mucous Membrane; rb1 Disposition: 01/13 09:41 Co-signature as Attending Physician, Yemi Oliveira MD I agree with the assessment and vargas plan of care. Disposition: 01/13/20 15:27 Discharged to Home. Impression: Periapical abscess without sinus. - Condition is Stable. - Discharge Instructions: Dental Pain, [id number], Dental Abscess, [id number]. - Prescriptions for Augmentin 875- 125 mg Oral Tablet - take 1 tablet by ORAL route every 12 hours for 10 days; 20 tablet. - Medication Reconciliation Form, Thank You Letter, Antibiotic Education, Prescription Opioid Use form. - Follow up: Emergency Department; When: As needed; Reason: Worsening of condition. Follow up: Private Physician; When: 2 - 3 days; Reason: Recheck today's complaints, Continuance of care, Re-evaluation by your physician. Signatures: Pat Doherty FNP-C FNP-Yemi Yeager MD MD cha Barber, Rebecca, RN RN rb1 Acob, Mallory RN RN ca1 Corrections: (The following items were deleted from the chart) 01/12 16:21 15:27 01/13/2020 15:27 Discharged to Home. Impression: Periapical abscess without rb1 sinus. Condition is Stable. Forms are Medication Reconciliation Form, Thank You Letter, Antibiotic Education, Prescription Opioid Use. Follow up: Emergency Department; When: As needed; Reason: Worsening of condition. Follow up: Private Physician; When: 2 - 3 days; Reason: Recheck today's complaints, Continuance of care, Re-evaluation by your physician. kb
[2020-01-13] MEDS ORDERED: AMOX/K CLAV 875 MG TAB ONE (15:46)
[2020-01-13] MEDS ORDERED: LIDOCAINE VISCOUS 2% SOLN 15 ML UDC ONE (15:46)
[2020-01-13] MEDS ORDERED: TRAMADOL HCL 50 MG TAB ONE (15:47)
[2020-01-13 16:45] VITALS: BP 144/91; TEMP 98.2; O2SAT 100
== END 2020-01-13 16:21 | disposition home or self-care (01) ==
LOC: ER 14:53
DX: K04.7 Periapical abscess without sinus (principal); I10 Essential (primary) hypertension; Z88.6 Allergy status to analgesic agent
CPT/HCPCS: 99283

== ENCOUNTER 2020-03-10 10:41 | Emergency (ER) | payer OTHER ==
--- NOTE | 2020-03-10 13:02 | ER ---
Nurse's Notes [facility] Name: Nancie Ordonez Age: 49 yrs Sex: Female : 1970 Arrival Date: 03/10/2020 Time: 11:13 Bed 10 Private MD: Diagnosis: Muscle spasm of back;Radiculopathy, cervical region;Fall (on) (from) other stairs and steps Presentation: 03/10 11:20 Chief complaint: Patient states: Slipped and fell yesterday. Now c/o back pain/ ss stiffness. Coronavirus screen: Proceed with normal triage. Patient denies a cough. Patient denies shortness of breath or difficulty breathing. Patient denies measured and/or subjective temperature greater than 100.4F prior to today's visit. Patient denies travel on a cruise ship or to a country the [facility] currently lists as an affected area. Patient denies contact with known and/or suspected case of COVID-19. Ebola Screen: Patient denies exposure to infectious person. Patient denies travel to an Ebola-affected area in the 21 days before illness onset. Initial Sepsis Screen: Does the patient meet any 2 criteria? No. Patient's initial sepsis screen is negative. Does the patient have a suspected source of infection? No. Patient's initial sepsis screen is negative. Risk Assessment: Do you want to hurt yourself or someone else? Patient reports no desire to harm self or others. Onset of symptoms was March 09, 2020. 11:20 Method Of Arrival: Ambulatory ss 11:20 Acuity: DEEPALI 4 ss Historical: - Allergies: 11:22 Naproxen; ss - PMHx: 11:22 Arthritis; GERD; Gout; Hypertension; ss - PSHx: 11:22 Hernia repair; ss - Immunization history:: Adult Immunizations up to date. - Social history:: Smoking status: Patient denies any tobacco usage or history of. Screenin:00 Abuse screen: Denies threats or abuse. Denies injuries from another. Nutritional ss screening: No deficits noted. Tuberculosis screening: Never had TB. Fall Risk None identified. Assessment: 12:36 Reassessment: called to exam room. No answer. Screener states that patient stepped ss outside to warm up because she was cold. Unable to locate patient. 13:00 General: Appears uncomfortable, Behavior is calm, cooperative. Pain: Complains of pain ss in back Pain currently is 9 out of 10 on a pain scale. Neuro: Level of Consciousness is awake, alert, obeys commands, Oriented to person, place, time, situation. Cardiovascular: Capillary refill < 3 seconds is brisk in bilateral fingers. Respiratory: Airway is patent Respiratory effort is even, unlabored, Respiratory pattern is regular, symmetrical. EENT: Oral mucosa is moist. Derm: Skin is intact, is healthy with good turgor, Skin is pink, warm \T\ dry. normal. Musculoskeletal: Circulation, motion, and sensation intact. Range of motion: intact in all extremities, Swelling. Vital Signs: 11:20 BP 126 / 98; Pulse 82; Resp 15; Temp 97.2(TE); Pulse Ox 98% on R/A; Weight 83 kg; Pain ss 9/10; ED Course: 11:13 Patient arrived in ED. ss 11:22 Triage completed. ss 11:22 Arm band placed on right wrist. ss 12:57 Cate Flores FNP-C is PHCP. snw 12:57 Shai Guzman MD is Attending Physician. snw 13:00 Patient has correct armband on for positive identification. Call light in reach. ss 13:02 No provider procedures requiring assistance completed. Patient did not have IV access ss during this emergency room visit. 13:05 Adwoa White, RN is Primary Nurse. ss Administered Medications: 13:05 Drug: Flexeril 10 mg Route: PO; ss Outcome: 13:02 Discharge ordered by . snw 13:21 Patient left the ED. hb 13:21 Discharged to home ambulatory. ss 13:21 Condition: good 13:21 Discharge instructions given to patient, Instructed on discharge instructions, follow up and referral plans. Demonstrated understanding of instructions, follow-up care, medications. Signatures: Cate Flores FNP-C HEALTHCARE NETWORK CONSULTANT-Csnw Adwoa White RN RN Serene Gramajo RN RN
--- NOTE | 2020-03-10 13:02 | EDPHYS ---
Physician Documentation [facility] Name: Nancie Ordonez Age: 49 yrs Sex: Female : 1970 Arrival Date: 03/10/2020 Time: 11:13 Bed 10 Private MD: ED Physician Shai Guzman Historical: - Allergies: 03/10 11:22 Naproxen; ss - PMHx: 11:22 Arthritis; GERD; Gout; Hypertension; ss - PSHx: 11:22 Hernia repair; ss - Immunization history:: Adult Immunizations up to date. - Social history:: Smoking status: Patient denies any tobacco usage or history of. Vital Signs: 11:20 BP 126 / 98; Pulse 82; Resp 15; Temp 97.2(TE); Pulse Ox 98% on R/A; Weight 83 kg; Pain ss 9/10; MDM: 13:02 Patient medically screened. snw 13:05 Data reviewed: vital signs, nurses notes. Data interpreted: Pulse oximetry: on room air snw is 98 %. Interpretation: normal. Counseling: I had a detailed discussion with the patient and/or guardian regarding: the historical points, exam findings, and any diagnostic results supporting the discharge/admit diagnosis, the need for outpatient follow up, to return to the emergency department if symptoms worsen or persist or if there are any questions or concerns that arise at home. Special discussion: Based on the history and exam findings, there is no indication for further emergent testing or inpatient evaluation. I discussed with the patient/guardian the need to see the primary care provider for further evaluation of the symptoms. Administered Medications: 13:05 Drug: Flexeril 10 mg Route: PO; ss Disposition: 17:56 Co-signature as Attending Physician, Shai Guzman MD I agree with the assessment and kdr plan of care. Disposition: 03/10/20 13:02 Discharged to Home. Impression: Muscle spasm of back, Radiculopathy, cervical region, Fall (on) (from) other stairs and steps. - Condition is Stable. - Discharge Instructions: Cervical Radiculopathy, Muscle Cramps and Spasms, Cryotherapy, Heat Therapy, Intrathecal Pain Pump Implantation, Back Injury Prevention. - Prescriptions for orphenadrine citrate 100 mg Oral Tablet Sustained Release - take 1 tablet by ORAL route 2 times per day As needed; 20 tablet. - Work release form, Medication Reconciliation Form, Thank You Letter, Antibiotic Education, Prescription Opioid Use form. - Follow up: Emergency Department; When: As needed; Reason: Worsening of condition. Follow up: Private Physician; When: 2 - 3 days; Reason: Recheck today's complaints, Continuance of care, Re-evaluation by your physician. Addendum: 03/22/2020 18:07 Addendum: Pt arrives and states she has a hx of arthritis, pt having leg cramps and s nw bumped against object that caused her to fall. No LOC. pt states she has increased pain from thoracic area to sacrum. No loss of bowel or bladder control. No fever. Pt has not seen her Doctor. VSS. + discomfort with ROM, flexion. Skin W/D, heart RRR, Lungs CTA [place], Abdomen soft, lumbar spine held in stiff position, pt resists movement secondary to pain. Peripheral pulses strong and equal. Steady gait. Signatures: Shai Guzman MD MD [facility] Cate Flores, COMPUTER AIDED DESIGN DESIGNER-C COMPUTER AIDED DESIGN DESIGNER-Csnw Adwoa White RN RN ss Serene Gramajo RN RN hb Corrections: (The following items were deleted from the chart) 03/10 13:02 13:02 03/10/2020 13:02 Discharged to Home. Impression: Muscle spasm of back; snw Radiculopathy, cervical region. Condition is Stable. Forms are Medication Reconciliation Form, Thank You Letter, Antibiotic Education, Prescription Opioid Use. Follow up: Emergency Department; When: As needed; Reason: Worsening of condition. Follow up: Private Physician; When: 2 - 3 days; Reason: Recheck today's complaints, Continuance of care, Re-evaluation by your physician. snw 13:21 13:02 03/10/2020 13:02 Discharged to Home. Impression: Muscle spasm of back; hb Radiculopathy, cervical region; Fall (on) (from) other stairs and steps. Condition is Stable. Forms are Medication Reconciliation Form, Thank You Letter, Antibiotic Education, Prescription Opioid Use. Follow up: Emergency Department; When: As needed; Reason: Worsening of condition. Follow up: Private Physician; When: 2 - 3 days; Reason: Recheck today's complaints, Continuance of care, Re-evaluation by your physician. snw
[2020-03-10] MEDS ORDERED: CYCLOBENZAPRINE 10 MG TAB ONE (13:12)
[2020-03-10 13:25] VITALS: BP 126/98; TEMP 97.2; O2SAT 98
== END 2020-03-10 13:21 | disposition home or self-care (01) ==
LOC: ER 10:41
DX: M62.830 Muscle spasm of back (principal); M54.12 Radiculopathy, cervical region; I10 Essential (primary) hypertension; W10.9XXA Fall (on) (from) unspecified stairs and steps, initial encounter; Y93.9 Activity, unspecified; Y92.9 Unspecified place or not applicable; Z88.6 Allergy status to analgesic agent
CPT/HCPCS: 99283

== ENCOUNTER 2020-03-15 11:11 | Emergency (ER) | payer OTHER ==
--- NOTE | 2020-03-15 13:36 | ER ---
Nurse's Notes [facility] Name: Nancie Ordonez Age: 49 yrs Sex: Female : 1970 Arrival Date: 03/15/2020 Time: 11:16 Bed 20 Private MD: Diagnosis: Fall due to bumping against object;Low back pain;Contusion of back wall of thorax Presentation: 03/15 11:51 Chief complaint: Patient states: Low back pain continues and entire body pain after her ll1 fall 6 days ago. Seen here, still has pain. Coronavirus screen: Proceed with normal triage. Patient denies a cough. Patient denies shortness of breath or difficulty breathing. Patient denies measured and/or subjective temperature greater than 100.4F prior to today's visit. Patient denies travel on a cruise ship or to a country the [facility] currently lists as an affected area. Patient denies contact with known and/or suspected case of COVID-19. Ebola Screen: Patient denies travel to an Ebola-affected area in the 21 days before illness onset. Initial Sepsis Screen: Does the patient meet any 2 criteria? No. Patient's initial sepsis screen is negative. Risk Assessment: Do you want to hurt yourself or someone else? Patient reports no desire to harm self or others. Onset of symptoms was March 19, 2020. 11:51 Method Of Arrival: Ambulatory 1 11:51 Acuity: DEEPALI 4 ll1 13:13 Initial Sepsis Screen: Does the patient have a suspected source of infection? No. ah Patient's initial sepsis screen is negative. Historical: - Allergies: 11:50 Naproxen; ll1 - PMHx: 11:50 Arthritis; GERD; Gout; Hypertension; ll1 - PSHx: 11:50 Hernia repair; ll1 - Immunization history:: Flu vaccine is not up to date. - Social history:: Smoking status: Patient denies any tobacco usage or history of. Patient/guardian denies using alcohol, street drugs, tobacco products. - Family history:: not pertinent. Screenin:12 Abuse screen: Denies threats or abuse. Nutritional screening: No deficits noted. Tuberculosis screening: No symptoms or risk factors identified. Fall Risk None identified. Assessment: 13:08 General: Appears in no apparent distress. Behavior is calm, cooperative, appropriate for age. Pain: Complains of pain in coccyx Pain currently is 10 out of 10 on a pain scale. Quality of pain is described as throbbing, Pain began 1 week ago Is continuous. Neuro: Level of Consciousness is awake, alert, obeys commands, Oriented to person, place, time, situation. Cardiovascular: Capillary refill < 3 seconds. Respiratory: Airway is patent Respiratory effort is even, unlabored. Derm: Skin is intact, is healthy with good turgor. Musculoskeletal: Capillary refill < 3 seconds. Vital Signs: 11:51 BP 144 / 67; Pulse 76; Resp 17; Temp 97.8; Pulse Ox 98% ; Pain 10/10; ll1 ED Course: 11:16 Patient arrived in ED. fj1 11:50 Arm band placed on Patient notified of wait time. ll1 11:53 Triage completed. ll1 12:33 Yemi Oliveira MD is Attending Physician. vargas 12:44 Geneva Carlson, RN is Primary Nurse. 13:12 Patient has correct armband on for positive identification. Bed in low position. Call light in reach. Side rails up X 1. 13:47 No provider procedures requiring assistance completed. Patient did not have IV access ah during this emergency room visit. Administered Medications: No medications were administered Outcome: 13:35 Discharge ordered by . [facility] 13:46 Discharged to home ambulatory. 13:46 Condition: good 13:46 Discharge instructions given to patient, Instructed on discharge instructions, follow up and referral plans. medication usage, Demonstrated understanding of instructions, follow-up care, medications, Prescriptions given X 1. 13:52 Patient left the ED. Signatures: Yemi Oliveira MD MD cha James, Frank [facility] Geneva Carlson, RN RN Vik Batres RN RN [facility]
--- NOTE | 2020-03-15 13:36 | EDPHYS ---
Physician Documentation [facility] Name: Nancie Ordonez Age: 49 yrs Sex: Female : 1970 Arrival Date: 03/15/2020 Time: 11:16 Bed 20 Private MD: CHERRIE Physician Yemi Oliveira HPI: 03/15 13:31 This 49 yrs old Black Female presents to ER via Ambulatory with complaints of Low Back vargas Pain, Fall Injury. 13:31 The patient presents with pain that is acute, and decreased range of motion. The vargas symptoms are located in the thoracic area and lumbar area. The pain does not radiate. The problem was sustained during a fall, while standing. Onset: The symptoms/episode began/occurred 5 day(s) ago. Modifying factors: The patient symptoms are alleviated by remaining still, the patient symptoms are aggravated by any movement, bending, standing. Associated signs and symptoms: The patient has no apparent associated signs or symptoms. Severity of symptoms: At their worst the symptoms were mild, moderate, in the emergency department the symptoms have improved, mildly. The patient has not experienced similar symptoms in the past. Historical: - Allergies: 11:50 Naproxen; ll1 - PMHx: 11:50 Arthritis; GERD; Gout; Hypertension; ll1 - PSHx: 11:50 Hernia repair; ll1 - Immunization history:: Flu vaccine is not up to date. - Social history:: Smoking status: Patient denies any tobacco usage or history of. Patient/guardian denies using alcohol, street drugs, tobacco products. - Family history:: not pertinent. ROS: 13:31 Constitutional: Negative for fever, chills, and weight loss, Eyes: Negative for injury, vargas pain, redness, and discharge, ENT: Negative for injury, pain, and discharge, Neck: Negative for injury, pain, and swelling, Cardiovascular: Negative for chest pain, palpitations, and edema, Respiratory: Negative for shortness of breath, cough, wheezing, and pleuritic chest pain, Abdomen/GI: Negative for abdominal pain, nausea, vomiting, diarrhea, and constipation, : Negative for injury, bleeding, discharge, and swelling, MS/Extremity: Negative for injury and deformity, Skin: Negative for injury, rash, and discoloration, Neuro: Negative for headache, weakness, numbness, tingling, and seizure, Psych: Negative for depression, anxiety, suicide ideation, homicidal ideation, and hallucinations, Allergy/Immunology: Negative for hives, rash, and allergies, Endocrine: Negative for neck swelling, polydipsia, polyuria, polyphagia, and marked weight changes, Hematologic/Lymphatic: Negative for swollen nodes, abnormal bleeding, and unusual bruising. 13:31 Back: Positive for decreased range of motion, pain at rest, pain with movement, of the thoracic area, lumbar area and sacrum. Exam: 13:31 Constitutional: This is a well developed, well nourished patient who is awake, alert, vargas and in no acute distress. Head/Face: Normocephalic, atraumatic. Eyes: Pupils equal round and reactive to light, extra-ocular motions intact. Lids and lashes normal. Conjunctiva and sclera are non-icteric and not injected. Cornea within normal limits. Periorbital areas with no swelling, redness, or edema. ENT: Nares patent. No nasal discharge, no septal abnormalities noted. Tympanic membranes are normal and external auditory canals are clear. Oropharynx with no redness, swelling, or masses, exudates, or evidence of obstruction, uvula midline. Mucous membranes moist. Neck: Trachea midline, no thyromegaly or masses palpated, and no cervical lymphadenopathy. Supple, full range of motion without nuchal rigidity, or vertebral point tenderness. No Meningismus. Chest/axilla: Normal chest wall appearance and motion. Nontender with no deformity. No lesions are appreciated. Cardiovascular: Regular rate and rhythm with a normal S1 and S2. No gallops, murmurs, or rubs. Normal PMI, no JVD. No pulse deficits. Respiratory: Lungs have equal breath sounds bilaterally, clear to auscultation and percussion. No rales, rhonchi or wheezes noted. No increased work of breathing, no retractions or nasal flaring. Abdomen/GI: Soft, non-tender, with normal bowel sounds. No distension or tympany. No guarding or rebound. No evidence of tenderness throughout. Female : Normal external genitalia. Skin: Warm, dry with normal turgor. Normal color with no rashes, no lesions, and no evidence of cellulitis. MS/ Extremity: Pulses equal, no cyanosis. Neurovascular intact. Full, normal range of motion. Neuro: Awake and alert, GCS 15, oriented to person, place, time, and situation. Cranial nerves II-XII grossly intact. Motor strength 5/5 in all extremities. Sensory grossly intact. Cerebellar exam normal. Normal gait. Psych: Awake, alert, with orientation to person, place and time. Behavior, mood, and affect are within normal limits. 13:31 Back: pain, that is mild, ROM is painful, normal spinal alignment noted, CVA tenderness, is absent. Vital Signs: 11:51 BP 144 / 67; Pulse 76; Resp 17; Temp 97.8; Pulse Ox 98% ; Pain 10/10; ll1 MDM: 12:33 Patient medically screened. vargas 13:34 Data reviewed: vital signs, nurses notes. [facility] 13:36 Differential diagnosis: strain, fracture, contusion. 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 rate is 76 beats/min, rhythm is regular, Pulse oximetry: on room air is 98 %. Counseling: I had a detailed discussion with the patient and/or guardian regarding: the historical points, exam findings, and any diagnostic results supporting the discharge/admit diagnosis, the need for outpatient follow up, for definitive care, a family practitioner. ED course: pt refused xrays, will folow up return if worse, no drive on meds. 03/15 13:40 Order name: Urine Dipstick--Ancillary (enter results) em1 03/15 13:27 Order name: Urine Dipstick-Ancillary (obtain specimen); Complete Time: 13:38 vargas Administered Medications: No medications were administered Disposition: 03/15/20 13:35 Discharged to Home. Impression: Fall due to bumping against object, Low back pain, Contusion of back wall of thorax. - Condition is Stable. - Discharge Instructions: Back Pain, Adult, Musculoskeletal Pain, Back Pain, Adult, [id number], Fall Prevention in the Home, [id number]. - Prescriptions for Cyclobenzaprine 5 mg Oral Tablet - take 1 tablet by ORAL route 3 times per day As needed; 15 tablet. - Work release form, Medication Reconciliation Form, Thank You Letter, Antibiotic Education, Prescription Opioid Use form. - Follow up: Private Physician; When: 2 - 3 days; Reason: Recheck today's complaints, Continuance of care, Re-evaluation by your physician. - Problem is new. - Symptoms have improved. Signatures: Dispatcher [employer] Yemi Jolley MD MD cha Harris, Amy, RN RN Vik Batres RN RN ll1 Corrections: (The following items were deleted from the chart) 13:52 13:35 03/15/2020 13:35 Discharged to Home. Impression: Fall due to bumping against ah object; Low back pain; Contusion of back wall of thorax. Condition is Stable. Forms are Medication Reconciliation Form, Thank You Letter, Antibiotic Education, Prescription Opioid Use. Follow up: Private Physician; When: 2 - 3 days; Reason: Recheck today's complaints, Continuance of care, Re-evaluation by your physician. Problem is new. Symptoms have improved. vargas
[2020-03-15 13:44] LABS: Urine Blood TRACE (NEG); Urine Glucose NEGATIVE (NEG); Urine Protein NEGATIVE (NEG)
[2020-03-15 14:48] VITALS: BP 144/67; TEMP 97.8; O2SAT 98
== END 2020-03-15 13:52 | disposition home or self-care (01) ==
LOC: ER 11:11
DX: S20.222A Contusion of left back wall of thorax, initial encounter (principal); S20.221A Contusion of right back wall of thorax, initial encounter; W18.00XA Striking against unspecified object with subsequent fall, initial encounter; Y93.9 Activity, unspecified; Y92.9 Unspecified place or not applicable
CPT/HCPCS: 81003; 99282

== ENCOUNTER 2020-06-04 13:00 | Emergency (ER) | payer OTHER ==
[2020-06-04 13:51] LABS: Urine Blood 1+ (NEG); Urine Glucose NEGATIVE (NEG); Urine Protein NEGATIVE (NEG); Urine Specific Gravity 1.025 (1.005-1.030); Urine pH 5.5 (5.0-7.0)
[2020-06-04] MEDS ORDERED: MORPHINE 4 MG/ML SYR ONE (14:27)
[2020-06-04] MEDS ORDERED: ONDANSETRON 4 MG (ODT) TAB ONE (14:27)
--- NOTE | 2020-06-04 14:31 | ER ---
Nurse's Notes [facility] Name: Nancie Ordonez Age: 49 yrs Sex: Female : 1970 Arrival Date: 06/04/2020 Time: 13:04 Bed 7 Private MD: Marv Ho E Diagnosis: Muscle spasm of back;Contusion of shoulder Presentation: 06/04 13:09 Chief complaint: Patient states: "My whole back is hurting. I was helping my cousins jd3 move and a pole fell from inside of the box and hit me in the right shoulder. so heavy lifting and hit by the pole.". Coronavirus screen: At this time, the client does not indicate any symptoms associated with coronavirus-19. Ebola Screen: Patient negative for fever greater than or equal to 101.5 degrees Fahrenheit, and additional compatible Ebola Virus Disease symptoms. Initial Sepsis Screen: Does the patient meet any 2 criteria? No. Patient's initial sepsis screen is negative. Does the patient have a suspected source of infection? No. Patient's initial sepsis screen is negative. Risk Assessment: Do you want to hurt yourself or someone else? Patient reports no desire to harm self or others. Onset of symptoms was May 31, 2020. 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 - Social history:: Smoking status: Patient denies any tobacco usage or history of. Screenin:25 Abuse screen: Denies threats or abuse. Nutritional screening: No deficits noted. aa5 Tuberculosis screening: No symptoms or risk factors identified. Fall Risk None identified. Assessment: 13:25 General: Appears uncomfortable, Behavior is calm, cooperative. Pain: Complains of pain aa5 in back and right shoulder Pain does not radiate. Pain currently is 10 out of 10 on a pain scale. Quality of pain is described as sharp, shooting, Is continuous, Noted to be resistant to movement. Neuro: Level of Consciousness is awake, alert, obeys commands, Oriented to person, place, time, situation. Cardiovascular: Patient's skin is warm and dry. Respiratory: Airway is patent Respiratory effort is even, unlabored, Respiratory pattern is regular, symmetrical. GI: No signs and/or symptoms were reported involving the gastrointestinal system. : No signs and/or symptoms were reported regarding the genitourinary system. EENT: No signs and/or symptoms were reported regarding the EENT system. Derm: Skin is dry, Skin is normal, Skin temperature is warm. Musculoskeletal: Range of motion: intact in all extremities. 14:40 Neuro: Level of Consciousness is awake, alert, obeys commands, Oriented to person, aa5 place, time, situation. Respiratory: Airway is patent Respiratory effort is even, unlabored, Respiratory pattern is regular, symmetrical. Derm: Skin is dry, Skin is normal, Skin temperature is warm. Vital Signs: 13:13 BP 110 / 78; Pulse 88; Resp 16 S; Temp 98.3(O); Pulse Ox 99% on R/A; Weight 79.38 kg jd3 (R); Height 5 ft. 3 in. (160.02 cm) (R); Pain 10/10; 14:19 BP 113 / 78; Pulse 78; Resp 17; Pulse Ox 100% ; jl7 13:13 Body Mass Index 31.00 (79.38 kg, 160.02 cm) jd3 ED Course: 13:04 Patient arrived in ED. ag5 13:04 Marv Ho MD is Private Physician. ag5 13:11 Triage completed. jd3 13:11 Arm band placed on. jd3 13:14 Patient has correct armband on for positive identification. Placed in gown. Bed in low mh5 position. Call light in reach. Side rails up X 1. Warm blanket given. Pulse ox on. NIBP on. 13:15 Jarett Fontana PA is PHCP. jr8 13:15 Humphrey Sandoval MD is Attending Physician. jr8 13:17 Barbara Washington RN is Primary Nurse. aa5 14:31 Marv Ho MD is Referral Physician. jr8 14:40 No provider procedures requiring assistance completed. Patient did not have IV access aa5 during this emergency room visit. Administered Medications: 14:19 Drug: morphine 4 mg Route: IM; Site: left deltoid; 7 14:40 Follow up: Response: No adverse reaction; Pain is decreased aa5 14:19 Drug: Zofran (Ondansetron) 4 mg Route: PO; jl7 14:40 Follow up: Response: No adverse reaction aa5 Outcome: 14:31 Discharge ordered by . jr8 14:40 Discharged to home ambulatory. aa5 14:40 Condition: stable 14:40 Discharge instructions given to patient, Instructed on discharge instructions, follow up and referral plans. medication usage, Demonstrated understanding of instructions, follow-up care, medications, Prescriptions given X 3. 14:45 Patient left the ED. aa5 Signatures: Barbara Washington, RN RN aa5 Jarett Fontana PA PA jr8 Radha Garzon 5 Aniyah Merrill RN RN jl7 Nikita Healy RN RN jEdis Ackerman 5
--- NOTE | 2020-06-04 14:32 | EDPHYS ---
Physician Documentation [facility] Name: Nancie Ordonez Age: 49 yrs Sex: Female : 1970 Arrival Date: 06/04/2020 Time: 13:04 Bed 7 Private MD: Marv Ho E ED Physician Humphrey Sandoval HPI: 06/04 14:04 This 49 yrs old Black Female presents to ER via Ambulatory with complaints of Back jr8 Pain, Shoulder Pain. 14:04 Onset: The symptoms/episode began/occurred acutely, 3 day(s) ago. The pain does not jr8 radiate. Associated signs and symptoms: The patient has no apparent associated signs or symptoms. The problem was sustained from a direct blow. Modifying factors: The patient symptoms are alleviated by nothing, the patient symptoms are aggravated by any movement. Severity of symptoms: At their worst the symptoms were moderate, in the emergency department the symptoms are unchanged. The patient has not experienced similar symptoms in the past. The patient has not recently seen a physician. Patient stated that she was helping someone move. Had metal pole fall on right shoulder region. Has had pain to muscle region radiating down back on right side that is not going away with OTC medications and creams . 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 - Social history:: Smoking status: Patient denies any tobacco usage or history of. ROS: 14:04 Eyes: Negative for injury, pain, redness, and discharge, ENT: Negative for injury, jr8 pain, and discharge, Neck: Negative for injury, pain, and swelling, Cardiovascular: Negative for chest pain, palpitations, and edema, Respiratory: Negative for shortness of breath, cough, wheezing, and pleuritic chest pain, Abdomen/GI: Negative for abdominal pain, nausea, vomiting, diarrhea, and constipation, MS/Extremity: Negative for injury and deformity, Skin: Negative for injury, rash, and discoloration, Neuro: Negative for headache, weakness, numbness, tingling, and seizure. 14:04 Back: Positive for pain at rest, pain with movement, radiated pain, of the right trapezius, right scapular area, right subscapular area and right mid back. Exam: 14:04 Eyes: Pupils equal round and reactive to light, extra-ocular motions intact. Lids and jr8 lashes normal. Conjunctiva and sclera are non-icteric and not injected. Cornea within normal limits. Periorbital areas with no swelling, redness, or edema. ENT: Nares patent. No nasal discharge, no septal abnormalities noted. Tympanic membranes are normal and external auditory canals are clear. Oropharynx with no redness, swelling, or masses, exudates, or evidence of obstruction, uvula midline. Mucous membranes moist. Neck: Trachea midline, no thyromegaly or masses palpated, and no cervical lymphadenopathy. Supple, full range of motion without nuchal rigidity, or vertebral point tenderness. No Meningismus. Cardiovascular: Regular rate and rhythm with a normal S1 and S2. No gallops, murmurs, or rubs. Normal PMI, no JVD. No pulse deficits. Respiratory: Lungs have equal breath sounds bilaterally, clear to auscultation and percussion. No rales, rhonchi or wheezes noted. No increased work of breathing, no retractions or nasal flaring. Abdomen/GI: Soft, non-tender, with normal bowel sounds. No distension or tympany. No guarding or rebound. No evidence of tenderness throughout. Skin: Warm, dry with normal turgor. Normal color with no rashes, no lesions, and no evidence of cellulitis. MS/ Extremity: Pulses equal, no cyanosis. Neurovascular intact. Full, normal range of motion. Neuro: Awake and alert, GCS 15, oriented to person, place, time, and situation. Cranial nerves II-XII grossly intact. Motor strength 5/5 in all extremities. Sensory grossly intact. Cerebellar exam normal. Normal gait. 14:04 Back: pain, that is moderate, of the right trapezius, right scapular area, right subscapular area and right mid back, ROM is painful, normal spinal alignment noted, CVA tenderness, is absent, vertebral tenderness, is not appreciated, muscle spasm, is appreciated in the right trapezius, right scapular area, right subscapular area and right mid back. Vital Signs: 13:13 BP 110 / 78; Pulse 88; Resp 16 S; Temp 98.3(O); Pulse Ox 99% on R/A; Weight 79.38 kg jd3 (R); Height 5 ft. 3 in. (160.02 cm) (R); Pain 10/10; 14:19 BP 113 / 78; Pulse 78; Resp 17; Pulse Ox 100% ; jl7 13:13 Body Mass Index 31.00 (79.38 kg, 160.02 cm) jd3 MDM: 13:15 Patient medically screened. jr8 14:04 Data reviewed: vital signs, nurses notes, and as a result, I will discharge patient. jr8 Data interpreted: Pulse oximetry: on room air is 99 %. Interpretation: normal. Counseling: I had a detailed discussion with the patient and/or guardian regarding: the historical points, exam findings, and any diagnostic results supporting the discharge/admit diagnosis, the need for outpatient follow up, a family practitioner, to return to the emergency department if symptoms worsen or persist or if there are any questions or concerns that arise at home. 06/04 13:35 Order name: Urine Dipstick--Ancillary (enter results); Complete Time: 13:52 eb 06/04 13:35 Order name: Urine --Ancillary (enter results); Complete Time: 13:52 eb Administered Medications: 14:19 Drug: morphine 4 mg Route: IM; Site: left deltoid; jl7 14:40 Follow up: Response: No adverse reaction; Pain is decreased aa5 14:19 Drug: Zofran (Ondansetron) 4 mg Route: PO; jl7 14:40 Follow up: Response: No adverse reaction aa5 Disposition: 14:53 Co-signature as Attending Physician, Humphrey Sandoval MD. rn Disposition: 06/04/20 14:31 Discharged to Home. Impression: Muscle spasm of back, Contusion of shoulder. - Condition is Stable. - Discharge Instructions: Muscle Cramps and Spasms, Back Exercises, [id number], Heat Therapy. - Prescriptions for Zanaflex 4 mg Oral Tablet - take 1 tablet by ORAL route every 8 hours As needed; 20 tablet. Tramadol 50 mg Oral Tablet - take 1 tablet by ORAL route every 8 hours as needed; 12 tablet. Medrol (Royal) 4 mg Oral Tablets, Dose Pack - take 1 tablet by ORAL route as directed - follow package instructions; 1 packet. - Medication Reconciliation Form, Thank You Letter, Antibiotic Education, Prescription Opioid Use form. - Follow up: Marv Ho MD; When: 5 - 6 days; Reason: Recheck today's complaints, Continuance of care, Re-evaluation by your physician. - Problem is new. - Symptoms have improved. Signatures: Dispatcher [employer] EDMS Humphrey Sandoval MD MD rn Barbara Washington RN RN aa5 Jarett Fontana PA PA jr8 Aniyah Merrill RN RN jl7 Nikita Healy RN RN jd3 Corrections: (The following items were deleted from the chart) 14:45 14:31 06/04/2020 14:31 Discharged to Home. Impression: Muscle spasm of back; Contusion aa5 of shoulder. Condition is Stable. Forms are Medication Reconciliation Form, Thank You Letter, Antibiotic Education, Prescription Opioid Use. Follow up: Marv Ho; When: 5 - 6 days; Reason: Recheck today's complaints, Continuance of care, Re-evaluation by your physician. Problem is new. Symptoms have improved. jr8
[2020-06-04 15:09] VITALS: TEMP 98.3
[2020-06-04 15:14] VITALS: BP 113/78; O2SAT 100
== END 2020-06-04 14:45 | disposition home or self-care (01) ==
LOC: ER 13:00
DX: S40.011A Contusion of right shoulder, initial encounter (principal); M62.830 Muscle spasm of back; I10 Essential (primary) hypertension; Z88.5 Allergy status to narcotic agent
CPT/HCPCS: 81003; 81025; 96372; 99283

== ENCOUNTER 2020-06-26 12:10 | Emergency (ER) | payer OTHER ==
--- OUTSIDE RECORDS SUMMARY | 2020-06-26 12:12 | XMS REPORT | Continuity of Care Document ---
:1970 Author Organization [facility] t Address [address] [place] [address] Care Team Providers Name Role Phone Unavailable Unavailable Unavailable Payers Payer Name Policy Type Policy Number Effective Date Expiration Date S ource Problems This patient has no known problems. Allergies, Adverse Reactions, Alerts Allergy Allergy Status Severity Reaction(s) Onset Inactive Treating Comm ents Source Name Type Date Date Clinician naproxen DA Active SV 2017-0 [facility] 2-27 [place] 00:00: [facility] Medications This patient has no known medications. Procedures This patient has no known procedures. Results This patient has no known results.
[2020-06-26] MEDS ORDERED: MEPERIDINE HCL 50 MG/ML ONE (13:29)
[2020-06-26] MEDS ORDERED: dexAMETHasone 4 MG/ML VIAL ONE (13:34)
--- NOTE | 2020-06-26 13:55 | EDPHYS ---
Physician Documentation [facility] Name: Nancie Ordonez Age: 49 yrs Sex: Female : 1970 Arrival Date: 06/26/2020 Time: 12:14 Bed 19 Private MD: ED Physician Humphrey Sandoval HPI: 06/26 13:43 This 49 yrs old Black Female presents to ER via Ambulatory with complaints of Back Pain.rn 13:43 The patient presents with pain that is acute. The symptoms are located in the low back. rn Onset: The symptoms/episode began/occurred 2 day(s) ago. The pain radiates to the right leg. Modifying factors: The patient symptoms are alleviated by nothing, the patient symptoms are aggravated by any movement. Severity of symptoms: At their worst the symptoms were moderate, in the emergency department the symptoms are unchanged. The patient has experienced similar episodes in the past. Reports right lower back pain for 2 days, Has had this before. + radiation to right buttocks and right leg, no direct injury. No bowel/bladder issues. No hx of kidney stones. . Historical: - Allergies: 12:40 Naproxen; ss - PMHx: 12:40 Arthritis; GERD; Gout; Hypertension; ss - PSHx: 12:40 Hernia repair; right arm sx; ss - Immunization history:: Adult Immunizations up to date. - Social history:: Smoking status: Patient denies any tobacco usage or history of. - Family history:: not pertinent. - Hospitalizations: : No recent hospitalization is reported. ROS: 13:48 Constitutional: Negative for fever, chills, and weight loss, Neck: Negative for injury, rn pain, and swelling, Cardiovascular: Negative for chest pain, palpitations, and edema, Respiratory: Negative for shortness of breath, cough, wheezing, and pleuritic chest pain, Abdomen/GI: Negative for abdominal pain, nausea, vomiting, diarrhea, and constipation, Back: + right lower back pain : Negative for injury, bleeding, discharge, and swelling, MS/Extremity: Negative for injury and deformity, Skin: Negative for injury, rash, and discoloration, Neuro: Negative for headache, weakness, numbness, tingling, and seizure. Exam: 13:48 Constitutional: This is a well developed, well nourished patient who is awake, alert rn Head/Face: Normocephalic, atraumatic. Cardiovascular: Regular rate and rhythm. No pulse deficits. Respiratory: No increased work of breathing, no retractions or nasal flaring. Abdomen/GI: soft, non-tender, no pulsatile mass Back: No spinal tenderness. + mild tenderness right lower back. Skin: Warm, dry MS/ Extremity: Pulses equal, no cyanosis. Neuro: Awake and alert, GCS 15 Vital Signs: 12:38 BP 140 / 113; Pulse 79; Resp 18; Temp 98.3(TE); Pulse Ox 100% on R/A; Weight 78.47 kg; ss Height 5 ft. 3 in. (160.02 cm); Pain 10/10; 14:09 BP 114 / 90; Pulse 71; Resp 15 S; Pulse Ox 100% on R/A; em 12:38 Body Mass Index 30.65 (78.47 kg, 160.02 cm) ss MDM: 12:41 Patient medically screened. rn 13:53 Differential diagnosis: chronic back pain, sprain, radiculopathy, muscle spasm. Data rn reviewed: vital signs, nurses notes, and as a result, I will discharge patient. Counseling: I had a detailed discussion with the patient and/or guardian regarding: the historical points, exam findings, and any diagnostic results supporting the discharge/admit diagnosis, the need for outpatient follow up, to return to the emergency department if symptoms worsen or persist or if there are any questions or concerns that arise at home. Special discussion: I discussed with the patient/guardian in detail that at this point there is no indication for admission to the hospital. It is understood, however, that if the symptoms persist or worsen the patient needs to return immediately for re-evaluation. Administered Medications: 12:52 CANCELLED (Duplicate Order): morphine 4 mg IM once; RASS on ADMIN: Combtv4, Very rn Agttd3, Agttd2, Rstlss1, AlertClm0, Drwsy-1, Lt Sdtn-2, Mod Sdtn-3, Dp Sdtn-4, UnArsble-5 13:30 Drug: Decadron 10 mg Route: IM; Site: right deltoid; em 14:41 Follow up: Response: No adverse reaction em 13:31 Not Given (Physician Discretion; pt hard to awaken prior to any medication given): em Demerol 50 mg IM once; RASS on ADMIN: Combtv4, Very Agttd3, Agttd2, Rstlss1, AlertClm0, Drwsy-1, Lt Sdtn-2, Mod Sdtn-3, Dp Sdtn-4, UnArsble-5 Disposition: 06/26/20 13:54 Discharged to Home. Impression: Muscle spasm of back, Radiculopathy, lumbosacral region. - Condition is Stable. - Discharge Instructions: Lumbosacral Radiculopathy, Muscle Cramps and Spasms. - Prescriptions for Ultram 50 mg Oral Tablet - take 1 tablet by ORAL route every 6 hours As needed; 15 tablet. Cyclobenzaprine 10 mg Oral Tablet - take 1 tablet by ORAL route every 8 hours As needed; 15 tablet. Medrol (Royal) 4 mg Oral Tablets, Dose Pack - take 1 tablet by ORAL route as directed - follow package instructions; 1 packet. - Medication Reconciliation Form, Thank You Letter, Antibiotic Education, Prescription Opioid Use form. - Follow up: Private Physician; When: As needed; Reason: Recheck today's complaints, Re-evaluation by your physician. - Problem is an acute exacerbation. - Symptoms have improved. Signatures: Edmond Durham RN Humphrey Wen MD MD rn Smirch, Shelby, RN RN ss Corrections: (The following items were deleted from the chart) 12:52 12:52 morphine 4 mg IM once; RASS on ADMIN: Combtv4, Very Agttd3, Agttd2, Rstlss1, rn AlertClm0, Drwsy-1, Lt Sdtn-2, Mod Sdtn-3, Dp Sdtn-4, UnArsble-5 ordered. rn 13:50 13:43 Reports right lower back . rn rn 13:53 13:48 Constitutional: This is a well developed, well nourished patient who is awake, rn alert Head/Face: Normocephalic, atraumatic. Back: No spinal tenderness. + mild tenderness right lower back. Skin: Warm, dry MS/ Extremity: Pulses equal, no cyanosis. Neuro: Awake and alert, GCS 15 rn 14:42 13:54 06/26/2020 13:54 Discharged to Home. Impression: Muscle spasm of back; em Radiculopathy, lumbosacral region. Condition is Stable. Forms are Medication Reconciliation Form, Thank You Letter, Antibiotic Education, Prescription Opioid Use. Follow up: Private Physician; When: As needed; Reason: Recheck today's complaints, Re-evaluation by your physician. Problem is an acute exacerbation. Symptoms have improved. rn
--- NOTE | 2020-06-26 13:55 | ER ---
Nurse's Notes [facility] Name: Nancie Ordonez Age: 49 yrs Sex: Female : 1970 Arrival Date: 06/26/2020 Time: 12:14 Bed 19 Private MD: Diagnosis: Muscle spasm of back;Radiculopathy, lumbosacral region Presentation: 06/26 12:38 Chief complaint: Patient states: R low back pain that radiates down R leg x 2 days. ss Coronavirus screen: Client denies travel out of the [place] in the last 14 days. Ebola Screen: Patient denies exposure to infectious person. Patient denies travel to an Ebola-affected area in the 21 days before illness onset. Initial Sepsis Screen: Does the patient meet any 2 criteria? No. Patient's initial sepsis screen is negative. Does the patient have a suspected source of infection? No. Patient's initial sepsis screen is negative. Risk Assessment: Do you want to hurt yourself or someone else? Patient reports no desire to harm self or others. Onset of symptoms was June 24, 2020. 12:38 Method Of Arrival: Ambulatory ss 12:38 Acuity: DEEPALI 3 ss Historical: - Allergies: 12:40 Naproxen; ss - PMHx: 12:40 Arthritis; GERD; Gout; Hypertension; ss - PSHx: 12:40 Hernia repair; right arm sx; ss - Immunization history:: Adult Immunizations up to date. - Social history:: Smoking status: Patient denies any tobacco usage or history of. - Family history:: not pertinent. - Hospitalizations: : No recent hospitalization is reported. Screenin:47 Abuse screen: Denies threats or abuse. Denies injuries from another. Nutritional ss screening: No deficits noted. Tuberculosis screening: Never had TB. Fall Risk None identified. Assessment: 12:47 General: Appears distressed, uncomfortable, tearful. Pain: Complains of pain in right ss low back Pain radiates to right leg Pain currently is 10 out of 10 on a pain scale. Quality of pain is described as aching, pinching, Pain began 2-3 days ago. Is continuous, Aggravated by increased activity, repositioning, weight bearing. Neuro: Level of Consciousness is awake, alert, obeys commands, Oriented to person, place, time, situation. Cardiovascular: Capillary refill < 3 seconds is brisk in bilateral fingers Patient's skin is warm and dry. Respiratory: Airway is patent Respiratory effort is even, unlabored, Respiratory pattern is regular, symmetrical. GI: Patient currently denies diarrhea, nausea, vomiting. : No signs and/or symptoms were reported regarding the genitourinary system. EENT: Nares are clear Oral mucosa is moist. Derm: Skin is intact, is healthy with good turgor, Skin is dry, Skin is pink, warm \T\ dry. normal. Musculoskeletal: Range of motion: intact in all extremities. Vital Signs: 12:38 BP 140 / 113; Pulse 79; Resp 18; Temp 98.3(TE); Pulse Ox 100% on R/A; Weight 78.47 kg; ss Height 5 ft. 3 in. (160.02 cm); Pain 10/10; 14:09 BP 114 / 90; Pulse 71; Resp 15 S; Pulse Ox 100% on R/A; em 12:38 Body Mass Index 30.65 (78.47 kg, 160.02 cm) ED Course: 12:14 Patient arrived in ED. mr 12:39 Triage completed. ss 12:40 Arm band placed on right wrist. ss 12:41 Humphrey Sandoval MD is Attending Physician. rn 12:47 Patient has correct armband on for positive identification. Bed in low position. Call ss light in reach. 13:04 Edmond Durham, RN is Primary Nurse. em 14:41 No provider procedures requiring assistance completed. Patient did not have IV access em during this emergency room visit. Administered Medications: 12:52 CANCELLED (Duplicate Order): morphine 4 mg IM once; RASS on ADMIN: Combtv4, Very rn Agttd3, Agttd2, Rstlss1, AlertClm0, Drwsy-1, Lt Sdtn-2, Mod Sdtn-3, Dp Sdtn-4, UnArsble-5 13:30 Drug: Decadron 10 mg Route: IM; Site: right deltoid; em 14:41 Follow up: Response: No adverse reaction em 13:31 Not Given (Physician Discretion; pt hard to awaken prior to any medication given): em Demerol 50 mg IM once; RASS on ADMIN: Combtv4, Very Agttd3, Agttd2, Rstlss1, AlertClm0, Drwsy-1, Lt Sdtn-2, Mod Sdtn-3, Dp Sdtn-4, UnArsble-5 Outcome: 13:54 Discharge ordered by . rn 14:41 Discharged to home with crutches, with family. em 14:41 Condition: good 14:41 Discharge instructions given to patient, family, Instructed on discharge instructions, follow up and referral plans. medication usage, Demonstrated understanding of instructions, follow-up care, medications, Prescriptions given X 3. 14:42 Patient left the ED. em Signatures: Haylie Sexton mr DurhamEdmond, RN RN Humphrey Chan MD MD rn Smirch, Shelby, RN RN ss
[2020-06-26 14:50] VITALS: TEMP 98.3; O2SAT 100
[2020-06-26 14:51] VITALS: BP 114/90
== END 2020-06-26 14:42 | disposition home or self-care (01) ==
LOC: ER 12:10
DX: M62.830 Muscle spasm of back (principal); M54.17 Radiculopathy, lumbosacral region; I10 Essential (primary) hypertension; Z88.5 Allergy status to narcotic agent
CPT/HCPCS: 96372; 99283; J1100; J2175

== ENCOUNTER 2020-06-30 16:04 | Emergency (ER) | payer OTHER ==
--- OUTSIDE RECORDS SUMMARY | 2020-06-30 16:06 | XMS REPORT | Continuity of Care Document ---
:1970 Author Organization [facility] t Address [facility] [place] [address] Care Team Providers Name Role Phone Unavailable Unavailable Unavailable Payers Payer Name Policy Type Policy Number Effective Date Expiration Date S ource Problems This patient has no known problems. Allergies, Adverse Reactions, Alerts Allergy Allergy Status Severity Reaction(s) Onset Inactive Treating Comm ents Source Name Type Date Date Clinician naproxen DA Active SV 2018-0 [facility] 2-27 [place] 00:00: [facility] Medications This patient has no known medications. Procedures This patient has no known procedures. Results This patient has no known results.
[2020-06-30] MEDS ORDERED: HYDROCODONE/APAP 10/325 TAB ONE (16:56)
--- NOTE | 2020-06-30 17:10 | ER ---
Nurse's Notes [facility] Name: Nancie Ordonez Age: 49 yrs Sex: Female : 1970 Arrival Date: 06/30/2020 Time: 16:07 Bed 17 Private MD: Marv Ho E Diagnosis: Radiculopathy, lumbosacral region Presentation: 06/30 16:14 Chief complaint: Patient states: Right lower back pain for 5 days, no specific injury ll1 known. Coronavirus screen: Client denies travel out of the [place] in the last 14 days. At this time, the client does not indicate any symptoms associated with coronavirus-19. Ebola Screen: Patient denies travel to an Ebola-affected area in the 21 days before illness onset. Initial Sepsis Screen: Does the patient meet any 2 criteria? No. Patient's initial sepsis screen is negative. Does the patient have a suspected source of infection? Yes: Bone or joint infection. Risk Assessment: Do you want to hurt yourself or someone else? Patient reports no desire to harm self or others. Onset of symptoms was June 26, 2020. 16:14 Method Of Arrival: Wheelchair ll1 16:14 Acuity: DEEPALI 4 ll1 Historical: - Allergies: 16:16 Naproxen; ll1 - Home Meds: 16:20 amlodipine 5 mg tab 1 tab once daily [Active]; colchicine 0.6 mg Oral cap 1 cap once hb daily [Active]; - PMHx: 16:16 Arthritis; GERD; Gout; Hypertension; ll1 - PSHx: 16:16 Hernia repair; right arm sx; ll1 16:17 ; broken leg sx; ll1 - Immunization history:: Flu vaccine is not up to date. - Social history:: Smoking status: Patient denies any tobacco usage or history of. Screenin:18 Abuse screen: Denies threats or abuse. Denies injuries from another. Nutritional hb screening: No deficits noted. Tuberculosis screening: No symptoms or risk factors identified. Fall Risk None identified. Assessment: 16:18 General: Appears in no apparent distress. Behavior is calm, cooperative. Pain: Pain hb currently is 10 out of 10 on a pain scale. Neuro: Level of Consciousness is awake, alert, obeys commands, Oriented to person, place, time, situation. Cardiovascular: Capillary refill < 3 seconds Patient's skin is warm and dry. Respiratory: Respiratory effort is even, unlabored, Respiratory pattern is regular, symmetrical. GI: No signs and/or symptoms were reported involving the gastrointestinal system. : No signs and/or symptoms were reported regarding the genitourinary system. EENT: No signs and/or symptoms were reported regarding the EENT system. Derm: Skin is pink, warm \T\ dry. Musculoskeletal: Reports low back pain. Vital Signs: 16:14 BP 126 / 84; Pulse 84; Resp 17; Temp 97.0; Pulse Ox 96% ; Weight 78.47 kg; Height 5 ft. ll1 3 in. (160.02 cm); Pain 10/10; 16:14 Body Mass Index 30.65 (78.47 kg, 160.02 cm) ll1 ED Course: 16:07 Patient arrived in ED. mr 16:07 Marv Ho MD is Private Physician. mr 16:16 Triage completed. ll1 16:16 Arm band placed on Patient placed in an exam room, on a stretcher. ll1 16:18 Serene Gramajo, NICCI is Primary Nurse. hb 16:18 Patient has correct armband on for positive identification. Bed in low position. Call hb light in reach. 16:24 Pat Doherty FNP-C is [facility]. kb 16:24 Tequila Choi MD is Attending Physician. kb 16:48 Urine collected: clean catch specimen, clear, skylar colored. jp3 17:28 No provider procedures requiring assistance completed. Patient did not have IV access hb during this emergency room visit. Administered Medications: 16:44 Drug: [place] 10 mg-325 mg 1 tabs Route: PO; hb 17:28 Follow up: Response: No adverse reaction hb 17:12 Drug: Decadron 10 mg Route: IM; Site: right ventrogluteal; hb 17:28 Follow up: Response: No adverse reaction hb Outcome: 17:10 Discharge ordered by . kb 17:28 Discharged to home ambulatory. hb 17:28 Condition: stable 17:28 Discharge instructions given to patient, Instructed on discharge instructions, follow up and referral plans. medication usage, Demonstrated understanding of instructions, follow-up care, medications. 17:28 Patient left the ED. hb Signatures: Pat Doherty FNP-C RUBBER OFF-Ckb Haylie Sexton Heather, RN RN hb Mannie Small jp3 Vki Edwards, RN RN ll1
--- NOTE | 2020-06-30 17:10 | EDPHYS ---
Physician Documentation [facility] Name: Nancie Ordonez Age: 49 yrs Sex: Female : 1970 Arrival Date: 06/30/2020 Time: 16:07 Bed 17 Private MD: Marv Ho E ED Physician Tequila Choi HPI: 06/30 17:48 This 49 yrs old Black Female presents to ER via Wheelchair with complaints of Back Pain.kb 17:48 The patient presents with pain that is acute. The symptoms are located in the right low kb back. Onset: The symptoms/episode began/occurred 5 day(s) ago. The pain radiates to the right mid back and right low back. Associated signs and symptoms: The patient has no apparent associated signs or symptoms. The problem was sustained when lifting heavy object. Modifying factors: The patient symptoms are alleviated by nothing, the patient symptoms are aggravated by any movement. Severity of symptoms: At their worst the symptoms were moderate, in the emergency department the symptoms are unchanged. The patient has experienced similar episodes in the past. The patient has been recently seen at the [facility] Emergency [facility], this week, for similar complaints was given a prescription for pain medications. Pt reports back pain for 5 days. She has had this pain before. Denies injury or trauma. States she believes it is from lifting heavy things at work. States she is scheduled for a MRI on Sunday, but came in for some pain relief and a cortisone shot if possible. Historical: - Allergies: 16:16 Naproxen; ll1 - Home Meds: 16:20 amlodipine 5 mg tab 1 tab once daily [Active]; colchicine 0.6 mg Oral cap 1 cap once hb daily [Active]; - PMHx: 16:16 Arthritis; GERD; Gout; Hypertension; ll1 - PSHx: 16:16 Hernia repair; right arm sx; ll1 16:17 ; broken leg sx; ll1 - Immunization history:: Flu vaccine is not up to date. - Social history:: Smoking status: Patient denies any tobacco usage or history of. ROS: 17:40 Constitutional: Negative for fever, chills, and weight loss, Cardiovascular: Negative kb for chest pain, palpitations, and edema, Respiratory: Negative for shortness of breath, cough, wheezing, and pleuritic chest pain, Abdomen/GI: Negative for abdominal pain, nausea, vomiting, diarrhea, and constipation, MS/Extremity: Negative for injury and deformity, Skin: Negative for injury, rash, and discoloration, Neuro: Negative for headache, weakness, numbness, tingling, and seizure. 17:40 Back: Positive for pain at rest, pain with movement, radiated pain, of the right low back. Exam: 17:48 Constitutional: This is a well developed, well nourished patient who is awake, alert, kb and in no acute distress. Head/Face: Normocephalic, atraumatic. Chest/axilla: Normal chest wall appearance and motion. Nontender with no deformity. No lesions are appreciated. Cardiovascular: Regular rate and rhythm with a normal S1 and S2. No gallops, murmurs, or rubs. Normal PMI, no JVD. No pulse deficits. Respiratory: Lungs have equal breath sounds bilaterally, clear to auscultation and percussion. No rales, rhonchi or wheezes noted. No increased work of breathing, no retractions or nasal flaring. Abdomen/GI: Soft, non-tender, with normal bowel sounds. No distension or tympany. No guarding or rebound. No evidence of tenderness throughout. Skin: Warm, dry with normal turgor. Normal color with no rashes, no lesions, and no evidence of cellulitis. MS/ Extremity: Pulses equal, no cyanosis. Neurovascular intact. Full, normal range of motion. Neuro: Awake and alert, GCS 15, oriented to person, place, time, and situation. Cranial nerves II-XII grossly intact. Motor strength 5/5 in all extremities. Sensory grossly intact. Cerebellar exam normal. Normal gait. 17:48 Back: pain, that is moderate, of the right low back, ROM is painful, normal spinal alignment noted. 17:52 Neuro: Exam negative for acute changes, Orientation: is normal. kb Vital Signs: 16:14 BP 126 / 84; Pulse 84; Resp 17; Temp 97.0; Pulse Ox 96% ; Weight 78.47 kg; Height 5 ft. ll1 3 in. (160.02 cm); Pain 10/10; 16:14 Body Mass Index 30.65 (78.47 kg, 160.02 cm) ll1 MDM: 16:24 Patient medically screened. kb 17:38 Data reviewed: vital signs, nurses notes. Data interpreted: Pulse oximetry: on room air kb is 96 %. Interpretation: normal. Counseling: I had a detailed discussion with the patient and/or guardian regarding: the historical points, exam findings, and any diagnostic results supporting the discharge/admit diagnosis, lab results, the need for outpatient follow up, a family practitioner, to return to the emergency department if symptoms worsen or persist or if there are any questions or concerns that arise at home. 06/30 17:11 Order name: Urine Dipstick--Ancillary (enter results) bd 06/30 17:11 Order name: Urine --Ancillary (enter results) bd 06/30 16:34 Order name: Urine Dipstick-Ancillary (obtain specimen); Complete Time: 17:01 kb 06/30 17:12 Order name: Urine --Ancillary EDMS Administered Medications: 16:44 Drug: [place] 10 mg-325 mg 1 tabs Route: PO; hb 17:28 Follow up: Response: No adverse reaction hb 17:12 Drug: Decadron 10 mg Route: IM; Site: right ventrogluteal; hb 17:28 Follow up: Response: No adverse reaction hb Disposition: 17:59 Co-signature as Attending Physician, Tequila Choi MD. ma2 Disposition: 06/30/20 17:10 Discharged to Home. Impression: Radiculopathy, lumbosacral region. - Condition is Stable. - Discharge Instructions: Lumbosacral Radiculopathy. - Medication Reconciliation Form, Thank You Letter, Antibiotic Education, Prescription Opioid Use form. - Follow up: Emergency Department; When: As needed; Reason: Worsening of condition. Follow up: Private Physician; When: 2 - 3 days; Reason: Recheck today's complaints, Continuance of care, Re-evaluation by your physician. Signatures: Dispatcher [employer] EDMS Pat Doherty FNP-C FNP-Ckb Baxter, Heather RN Tequila Schultz MD MD ma2 Vik Edwards RN RN ll1 Corrections: (The following items were deleted from the chart) 17:28 17:10 06/30/2020 17:10 Discharged to Home. Impression: Radiculopathy, lumbosacral hb region. Condition is Stable. Forms are Medication Reconciliation Form, Thank You Letter, Antibiotic Education, Prescription Opioid Use. Follow up: Emergency Department; When: As needed; Reason: Worsening of condition. Follow up: Private Physician; When: 2 - 3 days; Reason: Recheck today's complaints, Continuance of care, Re-evaluation by your physician. kb
[2020-06-30] MEDS ORDERED: dexAMETHasone 4 MG/ML VIAL ONE (17:31)
[2020-06-30 17:34] VITALS: BP 126/84; TEMP 97; O2SAT 96
[2020-06-30 18:19] LABS: Urine Blood NEGATIVE (NEG); Urine Glucose NEGATIVE (NEG); Urine Protein NEGATIVE (NEG)
== END 2020-06-30 17:28 | disposition home or self-care (01) ==
LOC: ER 16:04
DX: M54.17 Radiculopathy, lumbosacral region (principal); I10 Essential (primary) hypertension; Z88.5 Allergy status to narcotic agent
CPT/HCPCS: 81025; 81003; 96372; 99283; J1100

== ENCOUNTER 2020-10-12 11:58 | Observation (INO) | payer OTHER ==
[2020-10-12 12:43] LABS: Absolute Lymphocytes (CBC) 1.2 K/uL (0.7-4.9); Basophils % 0.6 % (0-1.3); Hematocrit 40.4 % (36.0-45.0); Lymphocytes % 20.8 % (15.3-44.8); MPV 9.8 fL (7.6-11.3); RBC Red Blood Cell Count 4.61 M/uL (3.86-4.86)
[2020-10-12] MEDS ORDERED: NA CHLORIDE 0.9% 1,000 ML ONE (12:52)
[2020-10-12 12:57] LABS: Protime INR 0.94
--- NOTE | 2020-10-12 12:59 | RAD REPORT ---
EXAM DESCRIPTION: RAD - Chest Single View - 10/12/2020 12:54 pm CLINICAL HISTORY: COUGH COMPARISON: Portable April 2017 TECHNIQUE: AP portable chest image was obtained 10/12/2020 12:54 pm . FINDINGS: Lungs are clear. Heart and vasculature are normal. No measurable pleural effusion and no p neumothorax. No acute bony abnormality seen. No acute aortic findings suspected. IMPRESSION: No acute cardiopulmonary process. No significant change from comparison study.
[2020-10-12 13:01] LABS: Urine Blood TRACE (NEG); Urine Glucose NEGATIVE (NEG); Urine Protein NEGATIVE (NEG)
--- NOTE | 2020-10-12 13:03 | RAD REPORT ---
EXAM DESCRIPTION: CT - Head Brain Wo Cont - 10/12/2020 12:51 pm CLINICAL HISTORY: Syncope;Mental status change COMPARISON: Head Brain Wo Cont dated 01/06/2017 TECHNIQUE: Axial 5 mm thick images of the head were obtained without IV contrast. All CT scans are performed using dose optimization technique as appropriate and may include automated exposure control or mA/KV adjustment according to patient size. FINDINGS: No intracranial hemorrhage, mass, edema or shift of mid-line structures. No acute infarcti on changes seen. No abnormal extra-axial fluid collections. Ventricles are normal. Mastoid air cells and visualized portions of the paranasal sinuses are clear. No acute bony findings. Old fracture seen along the medial wall left orbit. IMPRESSION: Negative non-contrast CT head examination for acute finding. No significant change from comparison.
[2020-10-12 13:04] LABS: Barbiturates NEGATIVE (NEGATIVE); Benzodiazepines POSITIVE (NEGATIVE); Cocaine NEGATIVE (NEGATIVE); METHAMPHETAM NEGATIVE (NEGATIVE); Methadone NEGATIVE (NEGATIVE); Opiates NEGATIVE (NEGATIVE); Phencyclidine NEGATIVE (NEGATIVE); THC Cannibis NEGATIVE (NEGATIVE)
[2020-10-12 13:21] LABS: ALT/SGPT 35 U/L (12-78); AST/SGOT 18 U/L (15-37); Albumin 4.2 g/dL (3.4-5.0); Alkaline Phosphatase 75 U/L (45-117); BUN Blood Urea Nitrogen 18 mg/dL (7-18); Bicarbonate 24 mmol/L (21-32); Bilirubin Direct < 0.1 mg/dL (0-0.2); Bilirubin Total 0.2 mg/dL (0.2-1.0); Glucose Level 107 mg/dL (74-106); Magnesium 2.3 mg/dL (1.8-2.4); NT PRO-BNP 10 pg/mL (<125); Potassium 3.8 mmol/L (3.5-5.1); Protein, Total 7.8 g/dL (6.4-8.2); Sodium Level 141 mmol/L (136-145); Troponin (Emerg Dept Use Only) < 0.02 ng/mL (0.0-0.045)
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
--- NOTE | 2020-10-12 14:51 | EDPHYS ---
Physician Documentation [facility] Name: Nancie Ordonez Age: 49 yrs Sex: Female : 1970 Arrival Date: 10/12/2020 Time: 11:59 Bed 3 Private MD: ED Physician Yemi Oliveira HPI: 10/12 13:02 This 49 yrs old Black Female presents to ER via Ambulatory with complaints of vargas Medication Reaction. 13:02 took lisinopril , got altered, pain all over, no swelling. The patient presents with vargas decreased responsiveness. Onset: The symptoms/episode began/occurred just prior to arrival. Possible causes: lisinopril. Associated signs and symptoms: Pertinent positives: agitation, confusion, palpitations, weakness. Current symptoms: In the emergency department the patient's symptoms are unchanged from the initial presentation. Patient's baseline: Neuro: alert and fully oriented. Severity of symptoms: At their worst the symptoms were moderate in the emergency department the symptoms are unchanged. The patient has not experienced similar symptoms in the past. Historical: - Allergies: 12:13 Naproxen; hb - PMHx: 12:13 GERD; Gout; Hypertension; Arthritis; hb - PSHx: 12:13 Hernia repair; right arm sx; ; broken leg sx; hb - Immunization history:: Flu vaccine is up to date. - Social history:: Smoking status: Patient denies any tobacco usage or history of. - Family history:: not pertinent. ROS: 13:02 Constitutional: Negative for fever, chills, and weight loss, Eyes: Negative for injury, vargas pain, redness, and discharge, ENT: Negative for injury, pain, and discharge, Neck: Negative for injury, pain, and swelling, Cardiovascular: Negative for chest pain, palpitations, and edema, Respiratory: Negative for shortness of breath, cough, wheezing, and pleuritic chest pain, Abdomen/GI: Negative for abdominal pain, nausea, vomiting, diarrhea, and constipation, Back: Negative for injury and pain, : Negative for injury, bleeding, discharge, and swelling, MS/Extremity: Negative for injury and deformity, Skin: Negative for injury, rash, and discoloration, Psych: Negative for depression, anxiety, suicide ideation, homicidal ideation, and hallucinations, Allergy/Immunology: Negative for hives, rash, and allergies, Endocrine: Negative for neck swelling, polydipsia, polyuria, polyphagia, and marked weight changes, Hematologic/Lymphatic: Negative for swollen nodes, abnormal bleeding, and unusual bruising. 13:02 Neuro: Positive for altered mental status, weakness. Exam: 13:02 Constitutional: This is a well developed, well nourished patient who is awake, alert, vargas and in no acute distress. Head/Face: Normocephalic, atraumatic. Eyes: Pupils equal round and reactive to light, extra-ocular motions intact. Lids and lashes normal. Conjunctiva and sclera are non-icteric and not injected. Cornea within normal limits. Periorbital areas with no swelling, redness, or edema. ENT: Nares patent. No nasal discharge, no septal abnormalities noted. Tympanic membranes are normal and external auditory canals are clear. Oropharynx with no redness, swelling, or masses, exudates, or evidence of obstruction, uvula midline. Mucous membranes moist. Neck: Trachea midline, no thyromegaly or masses palpated, and no cervical lymphadenopathy. Supple, full range of motion without nuchal rigidity, or vertebral point tenderness. No Meningismus. Chest/axilla: Normal chest wall appearance and motion. Nontender with no deformity. No lesions are appreciated. Cardiovascular: Regular rate and rhythm with a normal S1 and S2. No gallops, murmurs, or rubs. Normal PMI, no JVD. No pulse deficits. Respiratory: Lungs have equal breath sounds bilaterally, clear to auscultation and percussion. No rales, rhonchi or wheezes noted. No increased work of breathing, no retractions or nasal flaring. Abdomen/GI: Soft, non-tender, with normal bowel sounds. No distension or tympany. No guarding or rebound. No evidence of tenderness throughout. Back: No spinal tenderness. No costovertebral tenderness. Full range of motion. Skin: Warm, dry with normal turgor. Normal color with no rashes, no lesions, and no evidence of cellulitis. MS/ Extremity: Pulses equal, no cyanosis. Neurovascular intact. Full, normal range of motion. Psych: Awake, alert, with orientation to person, place and time. Behavior, mood, and affect are within normal limits. 13:02 Neuro: Orientation: to person, place, time, situation, Mentation: slow to respond, Memory: unable to test, Cranial nerves: grossly normal, is grossly normal based on the patient's age, no acute changes, Cerebellar function: is grossly normal, is grossly normal based on the patient's age, no acute changes, Motor: is normal, is grossly normal based on the patient's age, Sensation: unable to test, Gait: not tested. Deep tendon reflexes are 2+ (normal) in the bilateral brachioradialis, bicep, tricep and patellar and Achilles tendons, Babinski testing is normal, seizure activity, is not displayed by the patient. 13:19 ECG was reviewed by the Attending Physician. [facility] Vital Signs: 12:10 BP 112 / 81; Pulse 92; Resp 17; Temp 98.2; Pulse Ox 100% on R/A; hb 13:23 BP 120 / 70; Pulse 88; Resp 15; Pulse Ox 99% on R/A; Pain 0/10; ss 14:32 BP 107 / 66; Pulse 92; Resp 20; Pulse Ox 97% on R/A; sv 15:00 BP 98 / 66; Pulse 99; Resp 21; Pulse Ox 100% ; sv 16:30 BP 118 / 85; Pulse 96; Resp 16; Pulse Ox 100% ; sv 17:30 BP 130 / 74; Pulse 102; Resp 20; Pulse Ox 100% on R/A; sv 18:00 BP 127 / 88; Pulse 100; Resp 22; Pulse Ox 100% ; sv Procedures: 13:55 Peripheral line: by aseptic technique a peripheral line was placed in the left external vargas jugular vein. 14:04 Peripheral line: by aseptic technique a peripheral line was placed in the. [facility] MDM: 12:16 Patient medically screened. [facility] 13:08 Differential Diagnosis altered mental status. Differential Diagnosis: CVA, electrolyte vargas abnormality, alcohol intoxication, hypoglycemia, intracranial bleed, TIA, UTI, volume depletion. Data reviewed: vital signs, nurses notes, lab test result(s), EKG, radiologic studies, CT scan, plain films. Data interpreted: senior laboratory technician: rhythm is regular, Pulse oximetry: on room air is 100 %. Test interpretation: by ED physician or midlevel provider: ECG, plain radiologic studies. Counseling: I had a detailed discussion with the patient and/or guardian regarding: the historical points, exam findings, and any diagnostic results supporting the discharge/admit diagnosis, lab results, radiology results. 10/12 12:32 Order name: Basic Metabolic Panel [facility] 10/12 12:32 Order name: CBC with Diff [facility] 10/12 12:32 Order name: LFT's [facility] 10/12 12:32 Order name: Magnesium [facility] 10/12 12:32 Order name: NT PRO-BNP [facility] 10/12 12:32 Order name: PT-INR [facility] 10/12 12:32 Order name: Troponin (emerg Dept Use Only) [facility] 10/12 12:32 Order name: Acetaminophen [facility] 10/12 12:32 Order name: ETOH Level [facility] 10/12 12:32 Order name: Ptt, Activated; Complete Time: 14:10 [facility] 10/12 12:32 Order name: Salicylate; Complete Time: 14:10 [facility] 10/12 12:32 Order name: Urine Drug Screen; Complete Time: 14:10 [facility] 10/12 12:33 Order name: Basic Metabolic Panel; Complete Time: 14:10 [facility] 10/12 12:33 Order name: CBC with Automated Diff; Complete Time: 14:10 [facility] 10/12 12:32 Order name: XRAY Chest (1 view); Complete Time: 14:10 [facility] 10/12 12:32 Order name: CT Head Brain wo Cont; Complete Time: 14:10 [facility] 10/12 12:33 Order name: Liver (Hepatic) Function; Complete Time: 14:10 [facility] 10/12 12:33 Order name: Magnesium; Complete Time: 14:10 [facility] 10/12 12:33 Order name: NT PRO-BNP; Complete Time: 14:10 [facility] 10/12 12:33 Order name: Protime (+INR); Complete Time: 14:10 [facility] 10/12 12:33 Order name: Troponin (Emerg Dept Use Only); Complete Time: 14:10 [facility] 10/12 12:33 Order name: Acetaminophen Level; Complete Time: 14:10 [facility] 10/12 12:33 Order name: Alcohol Serum/Plasma; Complete Time: 14:10 [facility] 10/12 12:42 Order name: Glucose, Ancillary Testing [facility] 10/12 12:55 Order name: Urine Dipstick--Ancillary (enter results) 10/12 15:50 Order name: Brain Wo Cont [facility] 10/12 16:45 Order name: SARS-COV-2 RT PCR [facility] 10/12 12:32 Order name: EKG; Complete Time: 12:33 [facility] 10/12 12:32 Order name: Cardiac monitoring; Complete Time: 12:33 [facility] 10/12 12:32 Order name: EKG - Nurse/Tech; Complete Time: 12:33 [facility] 10/12 12:32 Order name: IV Saline Lock; Complete Time: 12:33 [facility] 10/12 12:32 Order name: Labs collected and sent; Complete Time: 12:34 [facility] 10/12 12:32 Order name: O2 Per Protocol; Complete Time: 12:33 [facility] 10/12 12:32 Order name: O2 Sat Monitoring; Complete Time: 12:33 [facility] 10/12 12:32 Order name: Urine Dipstick-Ancillary (obtain specimen); Complete Time: 12:41 [facility] EC:19 Rate is 91 beats/min. Rhythm is regular. QRS [place] is Normal. LA interval is normal. QRS vargas interval is normal. QT interval is normal. No Q waves. T waves are Normal. T waves are Inverted in leads II, III, aVF, V3, V4, V5, V6. Clinical impression: Abnormal EKG without significant change and No evidence of ischemia. Interpreted by me. Reviewed by me. Administered Medications: 12:45 Drug: NS 0.9% 500 ml Route: IV; Rate: bolus; Site: left antecubital; 14:30 Follow up: IV Status: Completed infusion; IV Intake: 500ml 14:30 Drug: NS 0.9% 1000 ml Route: IV; Rate: 125 ml/hr; Site: left jugular; ss 17:35 Follow up: IV Status: Infusion continued upon admission Disposition: 10/12/20 14:50 Hospitalization ordered by Linden Bee for Observation. Preliminary diagnosis are Altered mental status, unspecified, Weakness, SARS-associated coronavirus as the cause of diseases classified elsewhere - Covid 19. - Bed requested for Telemetry/MedSurg (observation). - Status is Observation. ea - Condition is Stable. - Problem is new. - Symptoms have improved. Signatures: Dispatcher [employer] EDMS Yemi Oliveira MD MD cha Smirch, Shelby, RN RN ss Garcia, Cindy, RN RN cg Baxter, Heather, RN RN hb Antunez, Elena, RN RN ea Corrections: (The following items were deleted from the chart) 12:37 12:33 Head Brain Wo Cont ordered. [facility] 15:50 14:46 MR STROKE PROTOCOL+MRI.RAD.BRZ ordered. [facility] EDMS 15:51 14:57 CORONAVIRUS+MR.LAB.BRZ ordered. [facility] 16:58 14:50 Hospitalization Ordered by Linden Bee for Observation. Preliminary diagnosis vargas is Altered mental status, unspecified; Weakness. Bed requested for Telemetry/MedSurg (observation). Status is Observation. Condition is Stable. Problem is new. Symptoms have improved. vargas 19:37 16:58 10/12/2020 14:50 Hospitalization Ordered by Linden Bee for Observation. cg Preliminary diagnosis is Altered mental status, unspecified; Weakness; SARS-associated coronavirus as the cause of diseases classified elsewhere - Covid 19. Bed requested for Telemetry/MedSurg (observation). Status is Observation. Condition is Stable. Problem is new. Symptoms have improved. vargas 19:52 19:37 10/12/2020 14:50 Hospitalization Ordered by Linden Bee for Observation. ea Preliminary diagnosis is Altered mental status, unspecified; Weakness; SARS-associated coronavirus as the cause of diseases classified elsewhere - Covid 19. Bed requested for Telemetry/MedSurg (observation). Status is Observation. Condition is Stable. Problem is new. Symptoms have improved. cg
--- NOTE | 2020-10-12 16:37 | RAD REPORT ---
EXAM DESCRIPTION: MRI - Brain Wo Cont - 10/12/2020 4:16 pm CLINICAL HISTORY: FEVERconfusion, weakness, stroke-like symptoms COMPARISON: No comparisons TECHNIQUE: Sagittal T1-weighted images were obtained along with axial PD, heavily T2-weighted and T2 -FLAIR images. Axial DWI and ADC mapping sequences were also obtained along with coronal heavily T2-w eighted images. FINDINGS: No intracranial hemorrhage, mass or acute infarction. There is no edema or shift of midlin e structures. No extra-axial fluid collections. Terry-matter/white matter junction is preserved. Signa l voids are seen as a normal finding in the major intracranial vessels. No atrophy or white matter si gnal abnormality. Ventricles are normal. No globe or orbital content abnormality. No sella or supra sella abnormality. No tonsillar ectopia. Mastoid air cells and paranasal sinuses are clear. IMPRESSION: Negative non-contrast MRI of the Brain.
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
[2020-10-12 19:57] VITALS: TEMP 98.2
[2020-10-12 20:01] VITALS: O2SAT 100
[2020-10-12 20:04] VITALS: BP 127/88
--- OUTSIDE RECORDS SUMMARY | 2020-10-13 08:41 | XMS REPORT | Continuity of Care Document ---
:1970 Author Organization [facility] t Address [address] [place] [address] [address] [place] [address] Care Team Providers Name Role Phone Unavailable Unavailable Unavailable Payers Payer Name Policy Type Policy Number Effective Date Expiration Date S ource Problems This patient has no known problems. Allergies, Adverse Reactions, Alerts Allergy Allergy Status Severity Reaction(s) Onset Inactive Treating Comm ents Source Name Type Date Date Clinician naproxen DA Active SV 2017-0 [facility] 2- [place] 00:00: [facility] Medications This patient has no known medications. Procedures This patient has no known procedures. Results This patient has no known results.
--- NOTE | 2020-10-13 09:27 | CON ---
Date of Consultation: 10/12/[address] patient admitted to Dr. Bee's service on 10/12/2020. Reason For Consultation: Abnormal EKG. History Of Present Illness: Ms. Ordonez is a 49-year-old black woman without any significant past ca ia history. She does have a history of hypertension, gout, arthritis, and gastroesophageal reflux disease. Apparently, received a dose of lisinopril after which she had changes in mental status. S he felt like she was edematous. She came to the emergency room and had abnormal EKG with T-wave abno rmalities consistent with inferior ischemia and I was consulted. The patient and family denied any c hest pain, nausea, vomiting, diaphoresis, PND, orthopnea, palpitations, or syncope. Past Medical History: As stated above. Allergies: NAPROSYN. Medications: At home include Protonix and Levaquin. Social History: Negative. Review of Systems: Negative. Physical Examination: Vital Signs: Stable. Afebrile. HEENT: Negative. Neck: Supple with no bruit. Chest: Clear. Cardiac: Normal. Abdomen: Benign. Extremities: Revealed no clubbing, cyanosis, or edema. Diagnostic Data: Urinalysis was positive for benzodiazepine. She does not to be COVID positive with out any symptoms. Troponin and BNP are negative. EKG was stated above. Impression And Plan: Abnormal EKG probably nonspecific, most likely LVH secondary to hypertension. I do not think this has anything to do with her symptoms. I think her symptoms are probably a reacti on to MELLY inhibitors, specifically lisinopril. At this point, I do not have any recommendation for h er to have any cardiac testing. I think maybe 2 weeks since her COVID positivity, she does not have any symptoms, we will consider doing an outpatient echocardiogram and stress test. For now continue present regimen. I will be available for questions if the need arises. VINEET/BENI Voice ID: [id number] Report ID: [id number]
--- NOTE | 2020-10-13 11:56 | EKG ---
Test Date: 2020-10-12 Test Time: 12:20:28 Medication Manager: CALVIN MEASUREMENT RESULTS: Intervals: Rate: 91 SC: 120 QRSD: 74 QT: 356 QTc: 437 [place]: P: 65 SC: 120 QRS: 64 T: -81 INTERPRETIVE STATEMENTS: Normal sinus rhythm Biatrial enlargement T wave abnormality, consider inferior ischemia T wave abnormality, consider anterolateral ischemia Abnormal ECG Compared to ECG 04/23/2017 11:47:26 Atrial abnormality now present T-wave abnormality still present Possible ischemia still present Electronically Signed On 10-13-20 11:53:37 REGISTER REPAIRER by Drake Blakely
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
== END 2020-10-12 19:46 | disposition left against medical advice (07) ==
LOC: ER 11:58 → ERHOLD 17:56
PROVIDERS: ADMIT Internal Medicine; ATTEND Internal Medicine
DX: G93.41 Metabolic encephalopathy (principal); G89.29 Other chronic pain; R29.91 Unspecified symptoms and signs involving the musculoskeletal system; Z20.822 Contact with and (suspected) exposure to COVID-19; I10 Essential (primary) hypertension; M10.9 Gout, unspecified; R94.31 Abnormal electrocardiogram [ECG] [EKG]; M19.90 Unspecified osteoarthritis, unspecified site; K21.9 Gastro-esophageal reflux disease without esophagitis
CPT/HCPCS: 96361; 93005; 85025; 80048; 36415; 80320; 83735; 80329 ×2; 85610; 82947; 80076; 80307 ×8; 85730; 81003; 84484; 83880; 70450; 71045; 70551; 96360; 99285; U0003; J7030; G0378 ×2

== ENCOUNTER 2020-12-13 12:48 | Emergency (ER) | payer OTHER ==
--- OUTSIDE RECORDS SUMMARY | 2020-12-13 12:50 | XMS REPORT | Continuity of Care Document ---
:1970 Author Organization [facility] t Address [facility]ly [facility] [place] [address] Care Team Providers Name Role Phone Unavailable Unavailable Unavailable Payers Payer Name Policy Type Policy Number Effective Date Expiration Date S ource Problems This patient has no known problems. Allergies, Adverse Reactions, Alerts Allergy Allergy Status Severity Reaction(s) Onset Inactive Treating Comm ents Source Name Type Date Date Clinician naproxen DA Active SV 2018-0 [facility] 2-27 [place] 00:00: Orthope 00 dic Hosp[facility] l Medications This patient has no known medications. Procedures This patient has no known procedures. Results This patient has no known results.
[2020-12-13] MEDS ORDERED: MORPHINE 4 MG/ML SYR ONE (15:55)
[2020-12-13] MEDS ORDERED: DIAZEPAM 5 MG TABLET ONE (15:55)
[2020-12-13] MEDS ORDERED: ONDANSETRON 4 MG (ODT) TAB ONE (15:56)
--- NOTE | 2020-12-13 15:56 | EDPHYS ---
Physician Documentation [facility] Name: Nancie Ordonez Age: 49 yrs Sex: Female : 1970 Arrival Date: 12/13/2020 Time: 12:54 Bed 24 Private MD: Yemi Briseno HPI: 12/13 14:06 This 49 yrs old Black Female presents to ER via Ambulatory with complaints of Back Pain.jmm 14:06 The patient presents with pain that is acute. Onset: The symptoms/episode jmm began/occurred gradually, 1 day(s) ago. The pain does not radiate. Associated signs and symptoms: Pertinent negatives: dysuria, fever, incontinence, numbness, tingling, urinary retention, vomiting, weakness. Modifying factors: The patient symptoms are alleviated by nothing, the patient symptoms are aggravated by any movement, walking. The patient has not experienced similar symptoms in the past. Patient states pain began after performing heavy lifting in her garage. . HOSPICE CASE MANAGER: 13:19 LMP N/A - Depo-provera ca1 Historical: - Allergies: 13:18 Naproxen; ca1 - Home Meds: 13:18 amlodipine 5 mg tab 1 tab once daily [Active]; colchicine 0.6 mg Oral cap 1 cap once ca1 daily [Active]; - PMHx: 13:18 Arthritis; GERD; Gout; Hypertension; ca1 - PSHx: 13:18 Hernia repair; right arm sx; ; broken leg sx; ca1 - Immunization history:: Flu vaccine is up to date. - Social history:: Smoking status: Patient denies any tobacco usage or history of. ROS: 14:06 Constitutional: Negative for fever, chills, and weight loss, Cardiovascular: Negative jmm for chest pain, palpitations, and edema, Respiratory: Negative for shortness of breath, cough, wheezing, and pleuritic chest pain. 14:06 Back: Positive for pain with movement. 14:06 All other systems are negative. Exam: 14:06 Constitutional: This is a well developed, well nourished patient who is awake, alert, jmm and in no acute distress. Head/Face: atraumatic. Eyes: EOMI, no conjunctival erythema appreciated ENT: Moist Mucus Membranes Neck: Trachea midline, Supple Chest/axilla: Normal chest wall appearance and motion. Cardiovascular: Regular rate and rhythm. No edema appreciated Respiratory: Normal respirations, no respiratory distress appreciated Abdomen/GI: Non distended, soft 14:06 Back: ROM is painful, no midline tenderness on palpation, paraspinal tenderness along the lumbar spine diffusely. 14:06 Musculoskeletal/extremity: ROM: intact in all extremities. 14:06 Skin: Appearance: Color: normal in color. 14:06 Neuro: Orientation: is normal, Mentation: is normal, Memory: is normal. 14:06 Psych: Behavior/mood is pleasant, cooperative. Vital Signs: 13:16 BP 134 / 97; Pulse 88; Resp 16 S; Temp 97.2(TE); Pulse Ox 100% on R/A; Weight 83.91 kg ca1 (R); Height 5 ft. 3 in. (160.02 cm) (R); Pain 10/10; 13:16 Body Mass Index 32.77 (83.91 kg, 160.02 cm) ca1 MDM: 14:06 Patient medically screened. jordy 15:52 Data reviewed: vital signs, nurses notes. Counseling: I had a detailed discussion with jordy the patient and/or guardian regarding: the historical points, exam findings, and any diagnostic results supporting the discharge/admit diagnosis, the need for outpatient follow up, to return to the emergency department if symptoms worsen or persist or if there are any questions or concerns that arise at home. ED course: I do not suspect fracture, cauda equina, abscess, patient advised to follow up with pcp and otherwise given strict return precautions. patient understood and agrees with the plan of care. . Administered Medications: 15:43 Drug: morphine 4 mg Route: IM; Site: right deltoid; iw 15:44 Drug: Zofran (Ondansetron) 4 mg Route: PO; iw 15:44 Drug: Valium (diazepam) 5 mg Route: PO; iw Disposition: 12/13/20 15:55 Discharged to Home. Impression: Strain of muscle, fascia and tendon of lower back. - Condition is Stable. - Discharge Instructions: Back Pain, Adult. - Prescriptions for Ultracet 37.5- 325 mg Oral Tablet - take 1 tablet by ORAL route every 6 hours - for up to 5 days; do not exceed 8 tablets per day.; 20 tablet. Zanaflex 4 mg Oral Tablet - take 1 tablet by ORAL route every 8 hours As needed; 20 tablet. - Medication Reconciliation Form, Thank You Letter, Antibiotic Education, Prescription Opioid Use form. - Follow up: Private Physician; When: 2 - 3 days; Reason: Recheck today's complaints, Continuance of care, Re-evaluation by your physician. Addendum: 12/15/2020 06:40 Co-signature as Attending Physician, Yemi Oliveira MD I agree with the assessment and c torres plan of care. Signatures: Yemi Oliveira MD MD cha Mickail, Joel, PA PA jmm Williams, Irene, NICCI RN iw Mallory Mathews RN RN ca1 Corrections: (The following items were deleted from the chart) 12/13 16:01 15:55 12/13/2020 15:55 Discharged to Home. Impression: Strain of muscle, fascia and iw tendon of lower back. Condition is Stable. Forms are Medication Reconciliation Form, Thank You Letter, Antibiotic Education, Prescription Opioid Use. Follow up: Private Physician; When: 2 - 3 days; Reason: Recheck today's complaints, Continuance of care, Re-evaluation by your physician. jordy
--- NOTE | 2020-12-13 15:56 | ER ---
Nurse's Notes [facility] Name: Nancie Ordonez Age: 49 yrs Sex: Female : 1970 Arrival Date: 12/13/2020 Time: 12:54 Bed 24 Private MD: Diagnosis: Strain of muscle, fascia and tendon of lower back Presentation: 12/13 13:16 Chief complaint: Patient states: Cleaning up garage Sunday, picked up heavy stuff. ca1 Started having back pains from tail bone to mid back. Coronavirus screen: Client denies travel out of the [place] in the last 14 days. At this time, the client does not indicate any symptoms associated with coronavirus-19. Ebola Screen: Patient negative for fever greater than or equal to 101.5 degrees Fahrenheit, and additional compatible Ebola Virus Disease symptoms Patient denies exposure to infectious person. Patient denies travel to an Ebola-affected area in the 21 days before illness onset. No symptoms or risks identified at this time. Initial Sepsis Screen: Does the patient meet any 2 criteria? No. Patient's initial sepsis screen is negative. Does the patient have a suspected source of infection? No. Patient's initial sepsis screen is negative. Risk Assessment: Do you want to hurt yourself or someone else? Patient reports no desire to harm self or others. Onset of symptoms was December 12, 2020. 13:16 Method Of Arrival: Ambulatory ca1 13:16 Acuity: DEEPALI 4 ca1 Triage Assessment: 15:10 General: Appears in no apparent distress. Behavior is calm, cooperative. iw Musculoskeletal: Range of motion: intact in all extremities. PRODUCTION COUNTER: 13:19 LMP N/A - Depo-provera ca1 Historical: - Allergies: 13:18 Naproxen; ca1 - Home Meds: 13:18 amlodipine 5 mg tab 1 tab once daily [Active]; colchicine 0.6 mg Oral cap 1 cap once ca1 daily [Active]; - PMHx: 13:18 Arthritis; GERD; Gout; Hypertension; ca1 - PSHx: 13:18 Hernia repair; right arm sx; ; broken leg sx; ca1 - Immunization history:: Flu vaccine is up to date. - Social history:: Smoking status: Patient denies any tobacco usage or history of. Screenin:00 Abuse screen: Denies threats or abuse. Denies injuries from another. Nutritional iw screening: No deficits noted. Tuberculosis screening: No symptoms or risk factors identified. Fall Risk None identified. Assessment: 15:00 General: Appears in no apparent distress. Behavior is calm, cooperative. Pain: iw Complains of pain in back Pain currently is 8 out of 10 on a pain scale. Neuro: Level of Consciousness is awake, alert, obeys commands, Oriented to person, place, time, situation, Moves all extremities. Cardiovascular: Patient's skin is warm and dry. Respiratory: Respiratory effort is even, unlabored, Respiratory pattern is regular. Derm: Skin is intact, is healthy with good turgor. Musculoskeletal: Range of motion: intact in all extremities. Vital Signs: 13:16 BP 134 / 97; Pulse 88; Resp 16 S; Temp 97.2(TE); Pulse Ox 100% on R/A; Weight 83.91 kg ca1 (R); Height 5 ft. 3 in. (160.02 cm) (R); Pain 10/10; 13:16 Body Mass Index 32.77 (83.91 kg, 160.02 cm) ca1 ED Course: 12:54 Patient arrived in ED. am2 13:18 Triage completed. ca1 13:18 Arm band placed on right wrist. ca1 13:58 Nancie Ware, RN is Primary Nurse. iw 14:00 Luis Elena PA is PHCP. [facility] 14:00 Yemi Oliveira MD is Attending Physician. m 15:00 Patient has correct armband on for positive identification. iw 16:00 No provider procedures requiring assistance completed. Patient did not have IV access iw during this emergency room visit. Administered Medications: 15:43 Drug: morphine 4 mg Route: IM; Site: right deltoid; iw 15:44 Drug: Zofran (Ondansetron) 4 mg Route: PO; iw 15:44 Drug: Valium (diazepam) 5 mg Route: PO; iw Outcome: 15:55 Discharge ordered by . [facility] 16:00 Discharged to home ambulatory, with family. iw 16:00 Condition: good 16:00 Discharge instructions given to patient, Instructed on discharge instructions, follow up and referral plans. medication usage, Demonstrated understanding of instructions, follow-up care, medications, Prescriptions given X 2. 16:01 Patient left the ED. iw Signatures: Luis Elena PA PA jmm Williams, Irene, RN RN iw Luly Villalpando am2 Mallory Mathews, RN RN ca1
[2020-12-13 16:08] VITALS: BP 134/97; TEMP 97.2; O2SAT 100
== END 2020-12-13 16:01 | disposition home or self-care (01) ==
LOC: ER 12:48
DX: S39.012A Strain of muscle, fascia and tendon of lower back, initial encounter (principal); I10 Essential (primary) hypertension; K21.9 Gastro-esophageal reflux disease without esophagitis; Z88.6 Allergy status to analgesic agent
CPT/HCPCS: 96372; 99283

== ENCOUNTER 2020-12-21 19:32 | Emergency (ER) | payer SELFPAY ==
--- OUTSIDE RECORDS SUMMARY | 2020-12-21 19:35 | XMS REPORT | Continuity of Care Document ---
:1970 Author Organization [facility] t Address [facility] [place] [address] Care Team Providers Name Role Phone Unavailable Unavailable Unavailable Payers Payer Name Policy Type Policy Number Effective Date Expiration Date S ource Problems This patient has no known problems. Allergies, Adverse Reactions, Alerts Allergy Allergy Status Severity Reaction(s) Onset Inactive Treating Comm ents Source Name Type Date Date Clinician naproxen DA Active SV 2018-0 [facility] 2-27 [place] 00:00: Orthope 00 dic Hospita l Medications This patient has no known medications. Procedures This patient has no known procedures. Results This patient has no known results.
--- NOTE | 2020-12-21 22:03 | ER ---
Nurse's Notes [facility] Name: Nancie Ordonez Age: 50 yrs Sex: Female : 1970 Arrival Date: 12/21/2020 Time: 19:34 Bed Waiting Private MD: Diagnosis: Presentation: 12/21 20:41 Chief complaint: Patient states: she was mowing the grass yesterday then she started bb sneezing, has a headache, eyes are burning and hurting. Coronavirus screen: At this time, the client does not indicate any symptoms associated with coronavirus-19. Ebola Screen: No symptoms or risks identified at this time. Initial Sepsis Screen: Does the patient meet any 2 criteria? No. Patient's initial sepsis screen is negative. Does the patient have a suspected source of infection? No. Patient's initial sepsis screen is negative. Risk Assessment: Do you want to hurt yourself or someone else? Patient reports no desire to harm self or others. Onset of symptoms was December 21, 2020. 20:41 Method Of Arrival: Ambulatory bb 20:41 Acuity: DEEPALI 3 bb Triage Assessment: 20:43 Headache History: The patient has had previous headaches. General: Appears in no bb apparent distress. Behavior is calm, cooperative. Pain: Complains of pain in head Pain currently is 10 out of 10 on a pain scale. Pain began suddenly, Also complains of no other associated symptoms. Neuro: Level of Consciousness is awake, alert, obeys commands, Oriented to person, place, time, situation. Respiratory: Airway is patent Respiratory effort is even, unlabored, Respiratory pattern is regular. 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 - Social history:: Smoking status: Patient/guardian denies using tobacco, but has a distant history of tobacco abuse. Vital Signs: 20:41 BP 164 / 94; Pulse 87; Resp 16 S; Temp 98.5(O); Pulse Ox 100% on R/A; Weight 82.55 kg bb (R); Height 5 ft. 3 in. (160.02 cm) (R); Pain 10/10; 20:41 Body Mass Index 32.24 (82.55 kg, 160.02 cm) bb ED Course: 19:34 Patient arrived in ED. cf2 20:42 Triage completed. bb 20:43 Arm band placed on Patient placed in waiting room, Patient notified of wait time. bb 22:01 Patient's name was called from ER lobby. No response. Unable to locate patient. Will bb disposition as left without being seen by a provider. Administered Medications: No medications were administered Outcome: 22:01 Patient left the ED. bb Signatures: Emily Mendez RN RN bb Arian Jack cf2
[2020-12-21 22:17] VITALS: BP 164/94; TEMP 98.5; O2SAT 100
== END 2020-12-21 22:01 | disposition left against medical advice (07) ==
LOC: ER 19:32
DX: Z53.21 Procedure and treatment not carried out due to patient leaving prior to being seen by health care provider (principal)
CPT/HCPCS: 99281

== ENCOUNTER 2021-01-05 09:25 | Emergency (ER) | payer OTHER ==
--- OUTSIDE RECORDS SUMMARY | 2021-01-05 09:27 | XMS REPORT | Continuity of Care Document ---
:1970 Author Organization [facility] t Address [facility] [place] [address] Care Team Providers Name Role Phone Unavailable Unavailable Unavailable Payers Payer Name Policy Type Policy Number Effective Date Expiration Date S ource Problems This patient has no known problems. Allergies, Adverse Reactions, Alerts Allergy Allergy Status Severity Reaction(s) Onset Inactive Treating Comm ents Source Name Type Date Date Clinician naproxen DA Active SV 2018-0 [facility] 2-27 [place] 00:00: Orthope 00 dic Hospita l Medications This patient has no known medications. Procedures This patient has no known procedures. Results This patient has no known results.
[2021-01-05 10:54] LABS: Urine Blood 1+ (Negative); Urine Glucose Negative (Negative); Urine Protein Negative (Negative); Urine Specific Gravity >=1.030 (1.005-1.030)
[2021-01-05] MEDS ORDERED: NA CHLORIDE 0.9% 1,000 ML ONE (11:15)
[2021-01-05] MEDS ORDERED: FAMOTIDINE 20 MG/2 ML VIAL IV ONE (11:15)
[2021-01-05] MEDS ORDERED: MORPHINE 4 MG/ML SYR ONE (11:15)
[2021-01-05] MEDS ORDERED: ONDANSETRON 4 MG/2 ML VIAL ONE (11:15)
[2021-01-05 11:26] LABS: Absolute Lymphocytes (CBC) 1.7 K/uL (0.7-4.9); Basophils % 0.5 % (0-1.3); Hematocrit 41.1 % (36.0-45.0); Lymphocytes % 33.6 % (15.3-44.8)
[2021-01-05 11:33] LABS: Urine Specific Gravity/Preg >1.030 (1.005-1.030)
[2021-01-05 11:53] LABS: ALT/SGPT 39 U/L (12-78); AST/SGOT 23 U/L (15-37); Alkaline Phosphatase 103 U/L (45-117); BUN Blood Urea Nitrogen 9 mg/dL (7-18); Bicarbonate 25 mmol/L (21-32); Bilirubin Direct < 0.1 mg/dL (0-0.2); Bilirubin Total 0.2 mg/dL (0.2-1.0); Glucose Level 57 mg/dL (74-106); Lipase 358 U/L (73-393); Potassium 3.5 mmol/L (3.5-5.1); Protein, Total 7.8 g/dL (6.4-8.2); Sodium Level 144 mmol/L (136-145)
[2021-01-05] MEDS ORDERED: METOCLOPRAMIDE 10 MG/2mL INJ ONE (12:41)
[2021-01-05] MEDS ORDERED: DIPHENHYDRAMINE 50 MG/ML VIAL ONE (12:42)
--- NOTE | 2021-01-05 13:17 | RAD REPORT ---
EXAM DESCRIPTION: CT - Abdomen Pelvis W Contrast - 01/05/2021 12:54 pm CLINICAL HISTORY: ABD PAIN, primarily epigastric COMPARISON: Abdomen Pelvis W Contrast dated 04/22/2017 TECHNIQUE: Biphasic, helical CT imaging of the abdomen and pelvis was performed following 100 ml non -ionic IV contrast. No oral contrast administered. All CT scans are performed using dose optimization technique as appropriate and may include automated exposure control or mA/KV adjustment according to patient size. FINDINGS: The examination suffers from motion degradation. No suspicious findings in the lung bases. The liver, spleen, and pancreas show no suspicious findings. Gallbladder and biliary tree are also wi thout suspicious finding. Gallstones can be occult on CT imaging. Symmetric renal function is seen with no hydronephrosis or suspicious renal mass. No pyelonephritis o r acute parenchymal process. No obstructing or nonobstructing calculi seen. There is increased fullne ss of each renal pelvis compared to 2017 but no associated abnormality seen. No adrenal abnormalities . No urinary bladder abnormality. Uterus and ovaries show no suspicious findings. No gastric dilatation or gastric wall thickening seen. Mild prominence of the gastric antrum is simil ar to 2017. No duodenal abnormality. A few mildly prominent loops of jejunum are present. Enteritis i s possible. The jejunum finding is minimal. No appendicitis. Patient has moderate stool volume throug hout the colon. No free air, free fluid or inflammatory stranding. No mass or bulky lymphadenopathy. A small fat o nly 15 mm umbilical hernia present. No suspicious bony findings. IMPRESSION: Contrast enhanced CT abdomen and pelvis showing no acute or emergent finding. Nonacute findings detailed in the body of the report.
--- NOTE | 2021-01-05 15:03 | ER ---
Nurse's Notes [facility] Name: Nancie Ordonez Age: 50 yrs Sex: Female : 1970 Arrival Date: 01/05/2021 Time: 09:26 Bed 14 Private MD: Diagnosis: Unspecified abdominal pain;Vomiting;Diarrhea, unspecified Presentation: 01/05 09:49 Chief complaint: Patient states: "my head is throbbing and every time eat something it aa5 comes out, I have vomiting and diarrhea". Pt also states "my stomach feels tender". Coronavirus screen: diarrhea, nausea, vomiting. Ebola Screen: Patient negative for fever greater than or equal to 101.5 degrees Fahrenheit, and additional compatible Ebola Virus Disease symptoms. Initial Sepsis Screen: Does the patient meet any 2 criteria? No. Patient's initial sepsis screen is negative. Does the patient have a suspected source of infection? No. Patient's initial sepsis screen is negative. Risk Assessment: Do you want to hurt yourself or someone else? Patient reports no desire to harm self or others. Onset of symptoms was January 2021. 09:49 Method Of Arrival: Ambulatory aa5 09:49 Acuity: DEEPALI 3 aa5 Historical: - Allergies: 09:50 Naproxen; aa5 - Home Meds: 09:50 amlodipine 5 mg tab 1 tab once daily [Active]; aa5 - PMHx: 09:50 Arthritis; GERD; Gout; Hypertension; aa5 - PSHx: 09:50 Hernia repair; right arm sx; ; broken leg sx; aa5 - Immunization history:: Flu vaccine is up to date. - Social history:: Smoking status: Patient denies any tobacco usage or history of. Screenin:41 Abuse screen: Denies threats or abuse. Denies injuries from another. Nutritional ld1 screening: No deficits noted. Tuberculosis screening: No symptoms or risk factors identified. Fall Risk None identified. Assessment: 10:41 General: Appears in no apparent distress. comfortable, Behavior is calm, cooperative, ld1 appropriate for age. Pain: Complains of pain in epigastric area Pain currently is 8 out of 10 on a pain scale. Quality of pain is described as stabbing, Pain began 2-3 days ago. Is continuous. Neuro: Level of Consciousness is awake, alert, obeys commands, Oriented to person, place, time, situation. Cardiovascular: Capillary refill < 3 seconds Patient's skin is warm and dry. Respiratory: Airway is patent Respiratory effort is even, unlabored, Respiratory pattern is regular, symmetrical. GI: Abdomen is round non-distended, Bowel sounds present X 4 quads. Abd is soft Abdomen is tender to palpation X 4 quads. Reports upper abdominal pain, nausea, vomiting. : No signs and/or symptoms were reported regarding the genitourinary system. EENT: No signs and/or symptoms were reported regarding the EENT system. Derm: No signs and/or symptoms reported regarding the dermatologic system. Musculoskeletal: No signs and/or symptoms reported regarding the musculoskeletal system. 12:15 Reassessment: received report from NICCI Vásquez. Patient resting; eyes closed, ap3 respirations even and unlabored at this time. Call light is within reach. Bed is locked and in lowest position. Side rails are up Xs 2. 13:02 Reassessment: Patient and/or family updated on plan of care and expected duration. Pain ap3 level reassessed. Patient is alert, oriented x 3, equal unlabored respirations, skin warm/dry/pink. Patient states symptoms have improved. Vital Signs: 09:49 BP 124 / 73; Pulse 97; Resp 18 S; Temp 97.9(TE); Pulse Ox 100% on R/A; Weight 83.91 kg aa5 (R); Height 5 ft. 3 in. (160.02 cm) (R); 10:41 BP 123 / 84; Pulse 90; Resp 18; Temp 97.9(O); Pulse Ox 100% on R/A; Weight 83.46 kg; ld1 Height 5 ft. 3 in. (160.02 cm); Pain 8/10; 13:06 BP 121 / 74; Pulse 79; Resp 17; Pulse Ox 99% on R/A; ap3 15:16 BP 134 / 93; Pulse 74; Pulse Ox 99% ; ap3 10:41 Body Mass Index 32.59 (83.46 kg, 160.02 cm) ld1 ED Course: 09:26 Patient arrived in ED. am2 09:48 Arm band placed on. aa5 09:50 Triage completed. aa5 09:56 Luis Elena PA is PHCP. [facility] 09:56 Yemi Oliveira MD is Attending Physician. [facility] 10:41 Thalia Hooper, NICCI is Primary Nurse. ld1 10:41 Patient has correct armband on for positive identification. Placed in gown. Bed in low ld1 position. Call light in reach. Side rails up X2. Pulse ox on. NIBP on. Door closed. Noise minimized. Warm blanket given. 10:41 No provider procedures requiring assistance completed. ld1 11:23 Initial lab(s) drawn, by me, sent to lab. Inserted saline lock: 22 gauge in left 5 antecubital area, using aseptic technique. Blood collected. 11:29 Basic Metabolic Panel Sent. 5 11:30 Lipase Sent. 5 11:30 Hepatic Function Sent. 5 11:30 Urine --Ancillary (enter results) Sent. ld1 11:32 Urine collected: clean catch specimen, clear. 5 11:32 IV discontinued, intact, bleeding controlled, Pressure dressing applied, Swelling noted aa5 to IV site, 22G to L AC dc'd. 11:35 Inserted saline lock: 22 gauge in right forearm, using aseptic technique. aa5 12:54 CT Abd/Pelvis - IV Contrast Only In Process Unspecified. EDMS Administered Medications: 11:31 Drug: NS 0.9% 1000 ml Route: IV; Rate: 1 bolus; Site: left antecubital; ld1 11:31 Drug: Zofran (Ondansetron) 4 mg Route: IVP; Site: left antecubital; ld1 11:31 Drug: morphine 4 mg Route: IVP; Site: left antecubital; ld1 11:31 Drug: Pepcid (famotidine) 10 mg Route: IVP; Site: left antecubital; ld1 15:18 Follow up: Response: No adverse reaction ap3 12:28 Drug: Reglan (metoCLOPramide) 10 mg Route: IVP; Site: right antecubital; ap3 15:18 Follow up: Response: No adverse reaction ap3 15:19 Follow up: Response: No adverse reaction ap3 12:28 Drug: diphenhydrAMINE 12.5 mg Route: IVP; Site: right antecubital; ap3 15:18 Follow up: Response: No adverse reaction ap3 15:15 Not Given (Patient Refused): Tylenol 650 mg PO once ap3 Outcome: 15:02 Discharge ordered by . jordy 15:16 Discharged to home ambulatory. ap3 15:16 Condition: stable 15:16 Discharge instructions given to patient, Instructed on discharge instructions, follow up and referral plans. medication usage, Demonstrated understanding of instructions, follow-up care, medications, Prescriptions given X 2. 15:19 Patient left the ED. ap3 Signatures: Dispatcher [employer] EDMS Luis Elena PA PA jmm Calderon, Audri, RN RN [email or web address] Radha Garzon Luly Lisa Amanda RN RN ap3 Thalia Hooper RN RN ld1
--- NOTE | 2021-01-05 15:03 | EDPHYS ---
Physician Documentation [facility] Name: Nancie Ordonez Age: 50 yrs Sex: Female : 1970 Arrival Date: 01/05/2021 Time: 09:26 Bed 14 Private MD: ED Physician Yemi Oliveira HPI: 01/05 10:46 This 50 yrs old Black Female presents to ER via Ambulatory with complaints of Abdominal jmm Pain, Vomiting/Diarrhea. 10:46 The patient presents with abdominal pain. Onset: The symptoms/episode began/occurred jmm gradually, 4 day(s) ago. The symptoms do not radiate. Associated signs and symptoms: Pertinent positives: nausea and vomiting, diarrhea. The symptoms are described as achy. Modifying factors: The symptoms are alleviated by nothing, the symptoms are aggravated by nothing. This is a 50 year old female with a history of GERD, HTN that presents to the ED with complaints of abdominal pain, vomiting, diarrhea, headache. . Historical: - Allergies: 09:50 Naproxen; aa5 - Home Meds: 09:50 amlodipine 5 mg tab 1 tab once daily [Active]; aa5 - PMHx: 09:50 Arthritis; GERD; Gout; Hypertension; aa5 - PSHx: 09:50 Hernia repair; right arm sx; ; broken leg sx; aa5 - Immunization history:: Flu vaccine is up to date. - Social history:: Smoking status: Patient denies any tobacco usage or history of. ROS: 10:46 Constitutional: Negative for fever, chills, and weight loss, Cardiovascular: Negative jmm for chest pain, palpitations, and edema, Respiratory: Negative for shortness of breath, cough, wheezing, and pleuritic chest pain. 10:46 Abdomen/GI: Positive for abdominal pain, vomiting, diarrhea. 10:46 All other systems are negative. Exam: 10:46 Constitutional: This is a well developed, well nourished patient who is awake, alert, jmm and in no acute distress. Head/Face: atraumatic. Eyes: EOMI, no conjunctival erythema appreciated ENT: Moist Mucus Membranes Neck: Trachea midline, Supple Chest/axilla: Normal chest wall appearance and motion. Cardiovascular: Regular rate and rhythm. No edema appreciated Respiratory: Normal respirations, no respiratory distress appreciated 10:46 Back: Normal ROM Skin: General appearance color normal MS/ Extremity: Moves all extremities, no obvious deformities appreciated, no edema noted to the lower extremities Neuro: Awake and alert, normal gait Psych: Behavior is normal, Mood is normal, Patient is cooperative and pleasant 10:46 Abdomen/GI: Inspection: abdomen appears normal, Bowel sounds: normal, Palpation: soft, mild abdominal tenderness, in all quadrants. Vital Signs: 09:49 BP 124 / 73; Pulse 97; Resp 18 S; Temp 97.9(TE); Pulse Ox 100% on R/A; Weight 83.91 kg aa5 (R); Height 5 ft. 3 in. (160.02 cm) (R); 10:41 BP 123 / 84; Pulse 90; Resp 18; Temp 97.9(O); Pulse Ox 100% on R/A; Weight 83.46 kg; ld1 Height 5 ft. 3 in. (160.02 cm); Pain 8/10; 13:06 BP 121 / 74; Pulse 79; Resp 17; Pulse Ox 99% on R/A; ap3 15:16 BP 134 / 93; Pulse 74; Pulse Ox 99% ; ap3 10:41 Body Mass Index 32.59 (83.46 kg, 160.02 cm) ld1 MDM: 10:34 Patient medically screened. vargas 15:00 Data reviewed: vital signs, nurses notes. Counseling: I had a detailed discussion with jordy the patient and/or guardian regarding: the historical points, exam findings, and any diagnostic results supporting the discharge/admit diagnosis, lab results, radiology results, the need for outpatient follow up, to return to the emergency department if symptoms worsen or persist or if there are any questions or concerns that arise at home. ED course: Patient states feeling much better. Imaging studies negative. Patient advised to follow up with pcp and otherwise given strict return precautions. Patient understood and agrees with the plan of care. . 01/05 10:45 Order name: Basic Metabolic Panel; Complete Time: 11:58 [facility] 01/05 10:45 Order name: CBC with Diff; Complete Time: 11:32 [facility] 01/05 10:45 Order name: Hepatic Function; Complete Time: 11:58 [facility] 01/05 10:45 Order name: Lipase; Complete Time: 11:58 [facility] 01/05 10:54 Order name: Urine Dipstick-Ancillary; Complete Time: 11:10 [facility] 01/05 11:01 Order name: Urine --Ancillary (enter results) bd 01/05 11:01 Order name: Urine --Ancillary; Complete Time: 11:36 [facility] 01/05 12:14 Order name: CT Abd/Pelvis - IV Contrast Only; Complete Time: 13:37 [facility] 01/05 10:45 Order name: IV Saline Lock; Complete Time: 11:29 [facility] 01/05 10:45 Order name: Labs collected and sent; Complete Time: 11:29 [facility] 01/05 10:45 Order name: Urine Dipstick-Ancillary (obtain specimen); Complete Time: 11:31 [facility] Administered Medications: 11:31 Drug: NS 0.9% 1000 ml Route: IV; Rate: 1 bolus; Site: left antecubital; ld1 11:31 Drug: Zofran (Ondansetron) 4 mg Route: IVP; Site: left antecubital; ld1 11:31 Drug: morphine 4 mg Route: IVP; Site: left antecubital; ld1 11:31 Drug: Pepcid (famotidine) 10 mg Route: IVP; Site: left antecubital; ld1 15:18 Follow up: Response: No adverse reaction ap3 12:28 Drug: Reglan (metoCLOPramide) 10 mg Route: IVP; Site: right antecubital; ap3 15:18 Follow up: Response: No adverse reaction ap3 15:19 Follow up: Response: No adverse reaction ap3 12:28 Drug: diphenhydrAMINE 12.5 mg Route: IVP; Site: right antecubital; ap3 15:18 Follow up: Response: No adverse reaction ap3 15:15 Not Given (Patient Refused): Tylenol 650 mg PO once ap3 Disposition: 01/06 09:29 Co-signature as Attending Physician, Yemi Oliveira MD I agree with the assessment and vargas plan of care. Disposition: 01/05/21 15:02 Discharged to Home. Impression: Unspecified abdominal pain, Vomiting, Diarrhea, unspecified. - Condition is Stable. - Discharge Instructions: Abdominal Pain, Adult, Food Choices to Help Relieve Diarrhea, Adult. - Prescriptions for Zofran ODT 4 mg Oral tablet,disintegrating - place 1 tablet by TRANSLINGUAL route every 4-6 hours; 20 tablet. Bentyl 20 mg Oral Tablet - take 2 tablet by ORAL route every 6 hours As needed; 40 tablet. - Medication Reconciliation Form, Thank You Letter, Antibiotic Education, Prescription Opioid Use form. - Follow up: Private Physician; When: 2 - 3 days; Reason: Recheck today's complaints, Continuance of care, Re-evaluation by your physician. Signatures: Dispatcher [employer] EDMS Yemi lOiveira MD MD cha Mickail, Joel, PA PA jmm Calderon, Audri, RN RN aa5 Luly Louie RN RN ap3 Thalia Hooper RN RN ld1 Corrections: (The following items were deleted from the chart) 01/05 15:19 15:02 01/05/2021 15:02 Discharged to Home. Impression: Unspecified abdominal pain; ap3 Vomiting; Diarrhea, unspecified. Condition is Stable. Forms are Medication Reconciliation Form, Thank You Letter, Antibiotic Education, Prescription Opioid Use. Follow up: Private Physician; When: 2 - 3 days; Reason: Recheck today's complaints, Continuance of care, Re-evaluation by your physician. jordy
[2021-01-05 15:45] VITALS: TEMP 97.9
[2021-01-05 16:00] VITALS: O2SAT 99
[2021-01-05 16:02] VITALS: BP 134/93
== END 2021-01-05 15:19 | disposition home or self-care (01) ==
LOC: ER 09:25
DX: R11.10 Vomiting, unspecified (principal); R19.7 Diarrhea, unspecified; I10 Essential (primary) hypertension; Z88.6 Allergy status to analgesic agent
CPT/HCPCS: 85025; 80048; 36415; 81025; 80076; 81003; 83690; 74177; 99284; Q9967; J2765; J1200; J7030; J2405

== ENCOUNTER 2021-03-08 12:30 | Emergency (ER) | payer OTHER ==
--- OUTSIDE RECORDS SUMMARY | 2021-03-08 12:41 | XMS REPORT | Continuity of Care Document ---
:1970 Author Organization [facility] t Address [facility] [place] [address] Care Team Providers Name Role Phone Unavailable Unavailable Unavailable Payers Payer Name Policy Type Policy Number Effective Date Expiration Date S ource Problems This patient has no known problems. Allergies, Adverse Reactions, Alerts Allergy Allergy Status Severity Reaction(s) Onset Inactive Treating Comm ents Source Name Type Date Date Clinician naproxen DA Active SV 2018-0 [facility] 2-27 [place] 00:00: [facility] Medications This patient has no known medications. Procedures This patient has no known procedures. Results This patient has no known results.
[2021-03-08 15:27] LABS: Absolute Lymphocytes (CBC) 1.6 K/uL (0.7-4.9); Basophils % 1.1 % (0-1.3); Hematocrit 39.2 % (36.0-45.0); Lymphocytes % 26.8 % (15.3-44.8); MPV 10.1 fL (7.6-11.3); RBC Red Blood Cell Count 4.46 M/uL (3.86-4.86)
[2021-03-08] MEDS ORDERED: FENTANYL CITR 100 MCG/2 ML ONE (15:32)
[2021-03-08 15:52] LABS: Potassium 3.7 mmol/L (3.5-5.1)
--- NOTE | 2021-03-08 16:42 | RAD REPORT ---
EXAM DESCRIPTION: CT - Head Brain Wo Cont - 03/08/2021 4:24 pm CLINICAL HISTORY: HEADACHE COMPARISON: Head Brain Wo Cont dated 10/12/2020 TECHNIQUE: Axial 5 mm thick images of the head were obtained without IV contrast. All CT scans are performed using dose optimization technique as appropriate and may include automated exposure control or mA/KV adjustment according to patient size. FINDINGS: No intracranial hemorrhage, mass, edema or shift of mid-line structures. No acute infarcti on changes seen. No abnormal extra-axial fluid collections. Ventricles are normal. Mastoid air cells and visualized portions of the paranasal sinuses are clear. No acute bony findings. IMPRESSION: Negative non-contrast CT head examination.
--- NOTE | 2021-03-08 16:45 | RAD REPORT ---
EXAM DESCRIPTION: CT - Soft Tissue Neck W/Contr - 03/08/2021 4:24 pm CLINICAL HISTORY: left side neck pain and swelling COMPARISON: [id number] dated 03/28/2015 TECHNIQUE: During dynamic enhancement using 100 milliliters nonionic IV contrast, axial 5 millimeter thick images of the neck were obtained. All CT scans are performed using dose optimization technique as appropriate and may include automated exposure control or mA/KV adjustment according to patient size. FINDINGS: Intracranial portion of the examination unremarkable. No globe or orbital content abnormal ity. Mastoid air cells, middle ears and paranasal sinuses are clear. No pharyngeal mucosal mass or asymmetry identified. No tonsil or tongue base abnormality seen. No epi glottis or vocal cord abnormality seen. There is some spray artifact from the C5-6 disc fusion materi al that limits laryngeal assessment. No parotid gland abnormality seen. Left submandibular gland is normal. The right submandibular gland is atrophic. No thyroid gland abnormality. Neck soft tissue show no abnormal lymphadenopathy or other mass. A few small benign-appearing lymph n odes are seen. No vascular abnormality identified. The C5-6 disc level is fused. Bony degenerative changes are present in the cervical spine. IMPRESSION: No suspicious mass, lymphadenopathy or other acute soft tissue neck finding identifiable .
--- NOTE | 2021-03-08 17:18 | ER ---
Nurse's Notes [facility] Name: Nancie Ordonez Age: 50 yrs Sex: Female : 1970 Arrival Date: 03/08/2021 Time: 12:33 Bed 20 Private MD: Diagnosis: Headache;Cervicalgia Presentation: 03/08 13:03 Chief complaint: Patient states: body aches, headache, left neck pain, left ear since sv this weekend. Coronavirus screen: Client denies travel out of the [place] in the last 14 days. Ebola Screen: No symptoms or risks identified at this time. Risk Assessment: Do you want to hurt yourself or someone else? Patient reports no desire to harm self or others. Onset of symptoms was March 2021. 13:03 Method Of Arrival: Ambulatory sv 13:03 Acuity: DEEPALI 3 sv 13:05 Initial Sepsis Screen: Does the patient meet any 2 criteria? No. Patient's initial sv sepsis screen is negative. Does the patient have a suspected source of infection? No. Patient's initial sepsis screen is negative. Triage Assessment: 13:06 General: Appears in no apparent distress. uncomfortable, Behavior is calm, cooperative, sv appropriate for age. Pain: Complains of pain in "all over". Neuro: Level of Consciousness is awake, alert, obeys commands, Gait is steady. Respiratory: Respiratory effort is even, unlabored. MANAGEMENT CONSULTING: 15:59 LMP N/A - Post-menopause jl7 Historical: - Allergies: 13:05 Naproxen; sv - PMHx: 13:05 Arthritis; GERD; Gout; Hypertension; sv - Immunization history:: Client reports receiving the 2nd dose of the Covid vaccine, Client reports receiving the 1st dose of the Covid vaccine. - Social history:: Smoking status: Patient denies any tobacco usage or history of. Screenin:00 Abuse screen: Denies threats or abuse. Denies injuries from another. Nutritional jl7 screening: No deficits noted. Tuberculosis screening: No symptoms or risk factors identified. Fall Risk IV access (20 points). Total Duke Fall Scale indicates No Risk (0-24 pts). Assessment: 15:00 General: Appears in no apparent distress. uncomfortable, Behavior is calm, cooperative, jl7 appropriate for age. Pain: Complains of pain in left anterior aspect of neck, left ear, DURON. Neuro: Level of Consciousness is awake, alert, obeys commands, Oriented to person, place, time, situation. Cardiovascular: Patient's skin is warm and dry. Respiratory: Airway is patent Respiratory effort is even, unlabored, Respiratory pattern is regular, symmetrical. EENT: Reports pain in right ear. Derm: Skin is pink, warm \\T\\ dry. 16:50 Reassessment: Pt reports continued pain, ERP notified, see MAR for orders. jl7 17:10 Reassessment: Patient appears in no apparent distress at this time. No changes from jl7 previously documented assessment. Patient and/or family updated on plan of care and expected duration. Pain level reassessed. Patient is alert, oriented x 3, equal unlabored respirations, skin warm/dry/pink. pain decreased. Vital Signs: 13:05 BP 136 / 90; Pulse 80; Resp 16; Temp 98.6; Pulse Ox 100% ; Height 5 ft. 3 in. (160.02 sv cm); Pain 9/10; 15:59 BP 138 / 92; Pulse 83; Resp 15; Pulse Ox 100% on R/A; jl7 17:10 BP 149 / 89; Pulse 83; Resp 15; Pulse Ox 100% ; jl7 ED Course: 12:33 Patient arrived in ED. wm 13:03 Arm band placed on. sv 13:05 Triage completed. sv 14:43 Yemi Anderson PA is PHCP. cp 14:43 Yemi Oliveira MD is Attending Physician. cp 14:44 Aniyah Merrill RN is Primary Nurse. jl7 15:00 Patient has correct armband on for positive identification. Bed in low position. Call jl7 light in reach. Side rails up X 1. Pulse ox on. NIBP on. 15:10 Initial lab(s) drawn, by ED staff, sent to lab. jl7 15:25 Inserted saline lock: 22 gauge in right antecubital area, using aseptic technique. jl7 16:24 CT Head Brain wo Cont In Process Unspecified. EDMS 16:24 CT Soft Tissue Neck W/contr In Process Unspecified. EDMS 17:30 No provider procedures requiring assistance completed. IV discontinued, intact, jl7 bleeding controlled, No redness/swelling at site. Pressure dressing applied. Administered Medications: 15:25 Drug: fentaNYL (PF) 25 mcg Route: IVP; Site: right antecubital; jl7 15:45 Follow up: Response: No adverse reaction; Pain is decreased jl7 16:55 Drug: fentaNYL (PF) 25 mcg Route: IVP; Site: right antecubital; jl7 17:10 Follow up: Response: No adverse reaction; Pain is decreased jl7 Outcome: 17:18 Discharge ordered by . nehemiah 17:30 Discharged to home ambulatory. jl7 17:30 Condition: stable 17:30 Discharge instructions given to patient, Instructed on discharge instructions, follow up and referral plans. medication usage, Demonstrated understanding of instructions, follow-up care, medications, Prescriptions given X 2. 17:30 Patient left the ED. jl7 Signatures: Dispatcher [employer] EDDoris Daniels RN RN Yemi Hardy PA PA cp Leal, Jahala, RN RN [email or web address] Reena Morales Corrections: (The following items were deleted from the chart) 13:07 13:05 Pulse 80bpm; Resp 16bpm; Pulse Ox 100%; Temp 98.6F; Height 5 ft. 3 in.; Pain sv 9/10; sv 16:43 15:00 Pain: Complains of pain in right anterior aspect of neck, right ear, DURON magali [email or web address]
--- NOTE | 2021-03-08 17:19 | EDPHYS ---
Physician Documentation [facility] Name: Nancie Ordonez Age: 50 yrs Sex: Female : 1970 Arrival Date: 03/08/2021 Time: 12:33 Bed 20 Private MD: CHERRIE Physician Yemi Oliveira HPI: 03/08 15:05 This 50 yrs old Black Female presents to ER via Ambulatory with complaints of Ear Pain, cp Headache. 15:05 The patient or guardian complains of pain, that is acute. cp 15:05 The symptoms are located on the left side of neck. cp 15:05 Onset: The symptoms/episode began/occurred for past several days. cp 15:05 Context: The neck injury/problem resulted from from unknown cause. The patient cp complains of pain to the forehead and behind eyes. The patient describes the headache as aching, waxing and waning. Associated signs and symptoms: Pertinent negatives: fever, neck stiffness, sinus congestion, sinus tenderness, vision changes, vomiting, weakness. Severity of symptoms: in the emergency department the pain has improved. 15:05 Patient also c/o radiating pain to left ear. 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 - Social history:: Smoking status: Patient denies any tobacco usage or history of. ROS: 15:10 Constitutional: Positive for body aches, Negative for chills, fever, poor PO intake. cp 15:10 Eyes: Negative for injury, pain, redness, and discharge. cp 15:10 ENT: Positive for ear pain, sore throat, Negative for drainage from ear(s), dental pain, difficulty swallowing, difficulty handling secretions, hoarseness. 15:10 Neck: Positive for pain with movement, pain at rest, of the left anterior lateral neck, Negative for injury or acute deformity. 15:10 Cardiovascular: Negative for chest pain, palpitations. 15:10 Respiratory: Negative for cough, shortness of breath, wheezing. 15:10 Abdomen/GI: Negative for abdominal pain, nausea, vomiting, and diarrhea. 15:10 Skin: Negative for rash. 15:10 Neuro: Positive for headache, Negative for altered mental status, dizziness, weakness. 15:10 All other systems are negative. Exam: 15:20 Constitutional: The patient appears in no acute distress, alert, awake, non-toxic, well cp developed, well nourished. 15:20 Head/Face: Normocephalic, atraumatic. cp 15:20 Eyes: Periorbital structures: appear normal, Pupils: equal, round, and reactive to light and accomodation, Extraocular movements: intact throughout, Conjunctiva: normal, no exudate, no injection, Sclera: no appreciated abnormality, Lids and lashes: appear normal, bilaterally. 15:20 ENT: External ear(s): are unremarkable, Ear canal(s): are normal, clear, TM's: dullness, bilaterally, Nose: is normal, Mouth: Lips: moist, Oral mucosa: moist, Posterior pharynx: Airway: no evidence of obstruction, patent, Tonsils: are normal in appearance, swelling, is not appreciated, erythema, is not appreciated, exudate, is not appreciated, Dental exam: dental caries, that is mild, specifically in the lower jaw, gum swelling, not appreciated, pain, is not appreciated, noted dentures of upper teeth, Voice: is normal. 15:20 Neck: External neck: tenderness, that is moderate, left anterior lateral neck, ROM/movement: is normal, is supple, no meningismus, no nuchal rigidity, Lymph nodes: no appreciated lymphadenopathy. 15:20 Chest/axilla: Inspection: normal, Palpation: is normal, no crepitus, no tenderness. 15:20 Cardiovascular: Rate: normal, Rhythm: regular, JVD: is not appreciated. 15:20 Respiratory: the patient does not display signs of respiratory distress, Respirations: normal, no use of accessory muscles, no retractions, labored breathing, is not present, Breath sounds: are clear throughout, no decreased breath sounds, no stridor, no wheezing. 15:20 Abdomen/GI: Exam negative for discomfort, distension, guarding, Inspection: abdomen appears normal. 15:20 Skin: cellulitis, is not appreciated, no rash present. 15:20 Neuro: Orientation: to person, place \T\ time. Mentation: is normal, Motor: moves all fours, strength is normal, Sensation: is normal. Vital Signs: 13:05 BP 136 / 90; Pulse 80; Resp 16; Temp 98.6; Pulse Ox 100% ; Height 5 ft. 3 in. (160.02 sv cm); Pain 9/10; 15:59 BP 138 / 92; Pulse 83; Resp 15; Pulse Ox 100% on R/A; jl7 17:10 BP 149 / 89; Pulse 83; Resp 15; Pulse Ox 100% ; jl7 MDM: 14:50 Patient medically screened. vargas 15:00 Differential diagnosis: meningoencephalitis, migraine, sinusitis, strep throat, mono, cp tonsillitis, enlarged lymph nodes cervical strain. 17:17 Data reviewed: vital signs, nurses notes, lab test result(s), radiologic studies, CT cp scan, and as a result, I will discharge patient. 17:17 Counseling: I had a detailed discussion with the patient and/or guardian regarding: the cp historical points, exam findings, and any diagnostic results supporting the discharge/admit diagnosis, lab results, radiology results, to return to the emergency department if symptoms worsen or persist or if there are any questions or concerns that arise at home. ED course: VSS. Pain improved with meds. Radiology studies negative for acute findings. Will discharge to home for continued monitoring. 03/08 14:57 Order name: CBC with Diff; Complete Time: 16:57 03/08 16:58 Interpretation: Reviewed. 03/08 14:57 Order name: BMP; Complete Time: 16:57 03/08 16:57 Interpretation: Normal except: CL 112; GFR 61. 03/08 14:57 Order name: [place] Screen Profile; Complete Time: 16:57 cp 03/08 14:57 Order name: Strep; Complete Time: 16:57 cp 03/08 14:57 Order name: CT Head Brain wo Cont; Complete Time: 16:57 03/08 16:57 Interpretation: Report reviewed. 03/08 15:52 Order name: Throat Culture EDAR 03/08 14:57 Order name: CT Soft Tissue Neck W/contr; Complete Time: 16:57 cp Administered Medications: 15:25 Drug: fentaNYL (PF) 25 mcg Route: IVP; Site: right antecubital; jl7 15:45 Follow up: Response: No adverse reaction; Pain is decreased jl7 16:55 Drug: fentaNYL (PF) 25 mcg Route: IVP; Site: right antecubital; jl7 17:10 Follow up: Response: No adverse reaction; Pain is decreased jl7 Disposition: 18:54 Co-signature as Attending Physician, Yemi Oliveira MD I agree with the assessment and vargas plan of care. Disposition Summary: 03/08/21 17:18 Discharge Ordered Location: Home cp Problem: new cp Symptoms: have improved cp Condition: Stable cp Diagnosis - Headache cp - Cervicalgia cp Followup: cp - With: Private Physician - When: 2 - 3 days - Reason: Recheck today's complaints Discharge Instructions: - Discharge Summary Sheet cp - General Headache Without Cause cp - Muscle Strain cp - Neck Exercises cp Forms: - Medication Reconciliation Form cp - Thank You Letter cp - Antibiotic Education cp - Prescription Opioid Use cp - Work release form bd Prescriptions: - Cyclobenzaprine 10 mg Oral Tablet - take 1 tablet by ORAL route every 8 hours As needed; 20 tablet; Refills: 0, cp Product Selection Permitted - Medrol (Royal) 4 mg Oral Tablets, Dose Pack - take 1 tablet by ORAL route as directed - follow package instructions; 1 cp packet; Refills: 0, Product Selection Permitted Signatures: Dispatcher [employer] Doris Mitchell, RN Yemi Golden MD MD cha Page, Corey, PA PA cp Leal, Jahala RN RN jl7
[2021-03-08 17:41] VITALS: O2SAT 100
[2021-03-08 17:56] VITALS: BP 149/89
[2021-03-08 18:05] VITALS: TEMP 98
== END 2021-03-08 17:30 | disposition home or self-care (01) ==
LOC: ER 12:30
DX: M54.2 Cervicalgia (principal); I10 Essential (primary) hypertension; Z88.6 Allergy status to analgesic agent
CPT/HCPCS: 87070; 85025; 80048; 36415; 86308; 87081; 70450; 70491; 96374; 99284; Q9967; J3010

== ENCOUNTER 2021-03-16 13:29 | Emergency (ER) | payer OTHER ==
--- OUTSIDE RECORDS SUMMARY | 2021-03-16 13:32 | XMS REPORT | Continuity of Care Document ---
:1970 Author Organization [facility] t Address [facility] [place] [address] Care Team Providers Name Role Phone Unavailable Unavailable Unavailable Payers Payer Name Policy Type Policy Number Effective Date Expiration Date S ource Problems This patient has no known problems. Allergies, Adverse Reactions, Alerts Allergy Allergy Status Severity Reaction(s) Onset Inactive Treating Comm ents Source Name Type Date Date Clinician naproxen DA Active SV 2018-0 [facility] 2-27 [place] 00:00: [facility]ope [facility] Medications This patient has no known medications. Procedures This patient has no known procedures. Results This patient has no known results.
--- NOTE | 2021-03-16 17:13 | ER ---
Nurse's Notes [facility] Name: Nancie Ordonez Age: 50 yrs Sex: Female : 1970 Arrival Date: 03/16/2021 Time: 13:30 Bed Waiting Private MD: Diagnosis: Presentation: 03/16 14:01 Chief complaint: Patient states: Neck pain, radiates down to tailbone, x 5 days. jl7 Coronavirus screen: Client denies travel out of the [place] in the last 14 days. At this time, the client does not indicate any symptoms associated with coronavirus-19. Ebola Screen: No symptoms or risks identified at this time. Initial Sepsis Screen: Does the patient meet any 2 criteria? No. Patient's initial sepsis screen is negative. Does the patient have a suspected source of infection? No. Patient's initial sepsis screen is negative. Risk Assessment: Do you want to hurt yourself or someone else? Patient reports no desire to harm self or others. Onset of symptoms was March 13, 2021. 14:01 Method Of Arrival: Ambulatory [facility] 14:01 Acuity: DEEPALI 3 jl7 Triage Assessment: 14:04 General: Appears in no apparent distress. uncomfortable, Behavior is calm, cooperative, jl7 appropriate for age, drowsy. Pain: Complains of pain in neck Pain radiates to sacrum Pain currently is 10 out of 10 on a pain scale. Musculoskeletal: Swelling absent. 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 - Social history:: Smoking status: Patient denies any tobacco usage or history of. Vital Signs: 14:01 BP 134 / 84; Pulse 104; Resp 22; Temp 98.7; Pulse Ox 99% on R/A; Weight 85.28 kg; jl7 Height 5 ft. 3 in. (160.02 cm); Pain 10/10; 14:01 Body Mass Index 33.30 (85.28 kg, 160.02 cm) jl7 ED Course: 13:30 Patient arrived in ED. as 14:04 Triage completed. jl7 14:04 Arm band placed on right wrist. jl7 15:09 Shai Guzman MD is Attending Physician. kdr 16:58 Patient's name was called from ER [employer] No response. jl7 17:12 Patient's name was called from ER [employer] No response. Unable to locate patient. Will jl7 disposition as left without being seen by a provider. Administered Medications: No medications were administered Outcome: 17:12 Patient left the ED. jl7 Signatures: Shai Guzman MD MD kdr Martinez, Amelia as Leal, Jahala, RN RN jl7
[2021-03-16 17:20] VITALS: BP 134/84; TEMP 98.7; O2SAT 99
== END 2021-03-16 17:12 | disposition left against medical advice (07) ==
LOC: ER 13:29
DX: Z53.21 Procedure and treatment not carried out due to patient leaving prior to being seen by health care provider (principal)
CPT/HCPCS: 99281

== ENCOUNTER 2021-03-16 19:11 | Emergency (ER) | payer OTHER ==
--- OUTSIDE RECORDS SUMMARY | 2021-03-16 19:14 | XMS REPORT | Continuity of Care Document ---
:1970 Author Organization [facility] t Address [facility] [place] [address] Care Team Providers Name Role Phone Unavailable Unavailable Unavailable Payers Payer Name Policy Type Policy Number Effective Date Expiration Date S ource Problems This patient has no known problems. Allergies, Adverse Reactions, Alerts Allergy Allergy Status Severity Reaction(s) Onset Inactive Treating Comm ents Source Name Type Date Date Clinician naproxen DA Active SV 2018-0 [facility] 2-27 [place] 00:00: Orthope 00 [facility] Medications This patient has no known medications. Procedures This patient has no known procedures. Results This patient has no known results.
--- NOTE | 2021-03-16 21:55 | EDPHYS ---
Physician Documentation [facility] Name: Nancie Ordonez Age: 50 yrs Sex: Female : 1970 Arrival Date: 03/16/2021 Time: 19:17 Bed DX3 Private MD: ED Physician Christopher New HPI: 03/16 21:05 This 50 yrs old Black Female presents to ER via Ambulatory with complaints of Neck cp Pain, >24Hrs Old, Back Pain, Neck and Upper Back Pain. 21:05 The patient or guardian complains of pain, that is acute. cp 21:05 The symptoms are located diffusely. cp 21:05 Onset: The symptoms/episode began/occurred 3 day(s) ago. Context: The neck cp injury/problem resulted from from unknown cause. The patient presents with pain that is acute, with no known mechanism of injury. The symptoms are located in the diffusely. Onset: The symptoms/episode began/occurred 3 day(s) ago. The pain does not radiate. Associated signs and symptoms: Pertinent negatives: abdominal pain, chest pain, fever, incontinence, numbness, urinary retention, weakness. Severity of symptoms: in the emergency department the symptoms are unchanged, despite home interventions. 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 - Social history:: Smoking status: Patient denies any tobacco usage or history of. ROS: 21:10 Neck: Positive for pain with movement, pain at rest, stiffness, Negative for injury or cp acute deformity. 21:10 Eyes: Negative for injury, pain, redness, and discharge. cp 21:10 Constitutional: Negative for body aches, chills, fever, poor PO intake. 21:10 Cardiovascular: Negative for chest pain, edema, palpitations. cp 21:10 Respiratory: Negative for cough, shortness of breath, wheezing. 21:10 Abdomen/GI: Negative for abdominal pain. 21:10 Back: Positive for pain at rest, pain with movement. 21:10 : Negative for urinary symptoms, bladder incontinence. 21:10 Neuro: Negative for altered mental status, dizziness, headache, numbness, weakness. 21:10 All other systems are negative. Exam: 21:10 Constitutional: The patient appears in no acute distress, alert, awake, cp non-diaphoretic, non-toxic, well developed, well nourished. 21:10 Head/Face: Normocephalic, atraumatic. cp 21:10 Chest/axilla: Inspection: normal. 21:10 Cardiovascular: Rate: normal, Rhythm: regular. 21:10 Respiratory: the patient does not display signs of respiratory distress, Respirations: normal, no use of accessory muscles, no retractions, labored breathing, is not present, Breath sounds: are clear throughout, no decreased breath sounds, no stridor, no wheezing. 21:10 Abdomen/GI: Exam negative for discomfort, distension, guarding, Inspection: abdomen appears normal. 21:10 Neuro: Orientation: to person, place \T\ time. Mentation: is normal, Motor: moves all fours, strength is normal, Sensation: is normal, Gait: is steady, at a normal pace, without difficulty. 21:10 Neck: External neck: tenderness, that is moderate, of the left trapezius, lower cp cervical area and right trapezius, ROM/movement: pain, with any movement, limited range of motion, is not appreciated, nuchal rigidity, is not appreciated. 21:10 Back: pain, that is moderate, of the left trapezius, right trapezius, left scapular area, right scapular area, left subscapular area, right subscapular area, left low back, left mid back, right mid back and right low back, ROM is painful, with all movement, Straight leg raises: of both lower extremities does not illicit pain. 21:10 Skin: cellulitis, is not appreciated, no rash present. Vital Signs: 19:28 BP 138 / 82; Pulse 105; Resp 16; Temp 98.4; Pulse Ox 99% ; Weight 85.28 kg; Height 5 jl7 ft. 3 in. (160.02 cm); Pain 9/10; 22:12 BP 125 / 80; Pulse 94; Resp 20; Pulse Ox 100% on R/A; bb 19:28 Body Mass Index 33.30 (85.28 kg, 160.02 cm) jl7 MDM: 20:52 Patient medically screened. cp 21:15 Differential diagnosis: Cervical Disc Herniation Cervical Raiculopathy sprain, cervical cp strain. 21:55 Data reviewed: vital signs, nurses notes. cp 21:55 Counseling: I had a detailed discussion with the patient and/or guardian regarding: the cp historical points, exam findings, and any diagnostic results supporting the discharge/admit diagnosis, the need for outpatient follow up, for definitive care, a family practitioner. Response to treatment: the patient's symptoms have markedly improved after treatment, and as a result, I will discharge patient. 03/16 21:01 [place]: [facility] Order: make sure patient has ride home; Complete Time: 21:04 cp Administered Medications: 21:30 Drug: Flexeril (cyclobenzaprine) 10 mg Route: PO; kg 21:46 Follow up: Response: No adverse reaction kg 21:30 Drug: Hydrocodone-Acetaminophen (7.5 mg-325 mg) 1 tabs Route: PO; kg 21:46 Follow up: Response: No adverse reaction kg Disposition: 03/17 06:05 Co-signature as Attending Physician, Christopher New MD available for consultation at [facility] all times. Did not see or evaluate patient. . Disposition Summary: 03/16/21 21:55 Discharge Ordered Location: Home cp Problem: new cp Symptoms: have improved cp Condition: Stable cp Diagnosis - Cervicalgia cp - Dorsalgia, unspecified cp Followup: cp - With: Private Physician - When: 2 - 3 days - Reason: Recheck today's complaints Discharge Instructions: - Discharge Summary Sheet cp - Acute Back Pain, Adult cp - Neck Exercises cp - Back Exercises cp - Musculoskeletal Pain cp Forms: - Medication Reconciliation Form cp - Thank You Letter cp - Antibiotic Education cp - Prescription Opioid Use cp Prescriptions: - Lidoderm 5 % Topical adhesive patch,medicated - apply 1 patch by TRANSDERMAL route once daily As needed; 1 box; Refills: 0, cp Product Selection Permitted - Baclofen 10 mg Oral Tablet - take 1 tablet by ORAL route 3 times per day; 20 tablet; Refills: 0, Product cp Selection Permitted Signatures: Yemi Anderson PA PA cp Leal, Jahala RN RN jl7 Christopher New MD MD ps1 Domenico, Manasa, RN RN kg
--- NOTE | 2021-03-16 21:55 | ER ---
Nurse's Notes [facility] Name: Nancie Ordonez Age: 50 yrs Sex: Female : 1970 Arrival Date: 03/16/2021 Time: 19:17 Bed DX3 Private MD: Diagnosis: Cervicalgia;Dorsalgia, unspecified Presentation: 03/16 19:28 Chief complaint: Patient states: "Pain starts in neck and goes down to my tailbone" Pt jl7 states pain began approximately three days ago. Pt denies any injuries or falls. Pt states h/a began today. Coronavirus screen: Client denies travel out of the [place] in the last 14 days. Ebola Screen: Patient negative for fever greater than or equal to 101.5 degrees Fahrenheit, and additional compatible Ebola Virus Disease symptoms. Initial Sepsis Screen: Does the patient meet any 2 criteria? No. Patient's initial sepsis screen is negative. Does the patient have a suspected source of infection? No. Patient's initial sepsis screen is negative. Risk Assessment: Do you want to hurt yourself or someone else? Patient reports no desire to harm self or others. Onset of symptoms was March 13, 2021. 19:28 Method Of Arrival: Ambulatory [facility] 19:28 Acuity: DEEPALI 3 jl7 Triage Assessment: 19:31 General: Appears in no apparent distress. uncomfortable, Behavior is calm, cooperative. jl7 Pain: Complains of pain in back and neck. 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 - Social history:: Smoking status: Patient denies any tobacco usage or history of. Screenin:53 Abuse screen: Denies threats or abuse. Denies injuries from another. Nutritional kg screening: No deficits noted. Tuberculosis screening: No symptoms or risk factors identified. Fall Risk None identified. No fall in past 12 months (0 pts). No secondary diagnosis (0 pts). IV access (20 points). Ambulatory Aid- None/Bed Rest/Nurse Assist (0 pts). Gait- Weak (10 pts.). Mental Status- Oriented to own ability (0 pts). Total Duke Fall Scale indicates No Risk (0-24 pts). Assessment: 20:50 General: Appears in no apparent distress. Behavior is calm, cooperative, appropriate kg for age, quiet. Pain: Complains of pain in Right side of neck, down right shoulder, down right side of back, tail bone Pain radiates to Right side of body Pain currently is 10 out of 10 on a pain scale. at worst was 10 out of 10 on a pain scale. level that patient reports is acceptable is 7 out of 10 on a pain scale. Quality of pain is described as throbbing, Pain began gradually, Is continuous, Aggravated by standing. Neuro: No deficits noted. 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 Cardiovascular: No deficits noted. Respiratory: No deficits noted. GI: No deficits noted. : No deficits noted. EENT: No deficits noted. Derm: No deficits noted. Musculoskeletal: Reports weakness in right arm and leg pain in right side of body. Vital Signs: 19:28 BP 138 / 82; Pulse 105; Resp 16; Temp 98.4; Pulse Ox 99% ; Weight 85.28 kg; Height 5 jl7 ft. 3 in. (160.02 cm); Pain 9/10; 22:12 BP 125 / 80; Pulse 94; Resp 20; Pulse Ox 100% on R/A; bb 19:28 Body Mass Index 33.30 (85.28 kg, 160.02 cm) jl7 ED Course: 19:17 Patient arrived in ED. bp1 19:31 Triage completed. jl7 19:31 Arm band placed on Patient placed in waiting room, Patient notified of wait time. jl7 20:22 Manasa Acuña, NICCI is Primary Nurse. kg 20:49 Yemi Anderson PA is PHCP. cp 20:49 Christopher New MD is Attending Physician. cp 20:54 Patient has correct armband on for positive identification. Call light in reach. kg 22:12 No provider procedures requiring assistance completed. Patient did not have IV access bb during this emergency room visit. Administered Medications: 21:30 Drug: Flexeril (cyclobenzaprine) 10 mg Route: PO; kg 21:46 Follow up: Response: No adverse reaction kg 21:30 Drug: Hydrocodone-Acetaminophen (7.5 mg-325 mg) 1 tabs Route: PO; kg 21:46 Follow up: Response: No adverse reaction kg Outcome: 21:55 Discharge ordered by . cp 22:12 Discharged to home ambulatory. bb 22:12 Condition: improved 22:12 Discharge instructions given to patient, Instructed on discharge instructions, follow up and referral plans. Demonstrated understanding of instructions, follow-up care, medications, Prescriptions given X 2. 22:12 Patient left the ED. bb Signatures: Emily Mendez RN RN bb Yemi Anderson PA PA cp Leal, Jahala, RN RN jl7 Chica Reyes Kristen, RN RN kg
[2021-03-16] MEDS ORDERED: CYCLOBENZAPRINE 10 MG TAB ONE (21:57)
[2021-03-16] MEDS ORDERED: HYDROCODONE/APAP 7.5/325 MG TAB ONE (21:58)
[2021-03-16 22:38] VITALS: TEMP 98.4
[2021-03-16 22:39] VITALS: BP 125/80; O2SAT 100
== END 2021-03-16 22:12 | disposition home or self-care (01) ==
LOC: ER 19:11
DX: M54.9 Dorsalgia, unspecified (principal); I10 Essential (primary) hypertension; Z88.5 Allergy status to narcotic agent
CPT/HCPCS: 99283

== ENCOUNTER 2021-05-16 07:27 | Emergency (ER) | payer OTHER ==
--- OUTSIDE RECORDS SUMMARY | 2021-05-16 07:31 | XMS REPORT | Continuity of Care Document ---
:1970 Author Organization [facility] t Address [facility] [place] [address] Care Team Providers Name Role Phone Unavailable Unavailable Unavailable Payers Payer Name Policy Type Policy Number Effective Date Expiration Date S ource Problems This patient has no known problems. Allergies, Adverse Reactions, Alerts Allergy Allergy Status Severity Reaction(s) Onset Inactive Treating Comm ents Source Name Type Date Date Clinician naproxen DA Active SV 2018-0 [facility] 2-27 [place] 00:00: Orthope 00 [facility] H[facility] Medications This patient has no known medications. Procedures This patient has no known procedures. Results This patient has no known results.
--- NOTE | 2021-05-16 08:55 | RAD REPORT ---
EXAM DESCRIPTION: CT - Chest Abdomen Pelvis W Cont - 05/16/2021 8:44 am CLINICAL HISTORY: Chest and abdomen pain. fall down 4 steps, pain post thorax and back/abdomen COMPARISON: No comparisons TECHNIQUE: Approximately 100 mL nonionic IV contrast was administered to the patient. All CT scans are performed using dose optimization technique as appropriate and may include automated exposure control or mA/KV adjustment according to patient size. FINDINGS: The lungs are clear.No pleural or pericardial effusion.No intrathoracic adenopathy. The liver, spleen, pancreas, adrenal glands and kidneys are within normal limits. No bowel obstruction, free air, free fluid or abscess. Normal appendix. No pathologic lymphadenopath y in the abdomen or pelvis. No worrisome osseous finding. IMPRESSION: No evidence of significant trauma to the chest, abdomen, or pelvis.
--- NOTE | 2021-05-16 09:04 | ER ---
Nurse's Notes [facility] Name: Nancie Ordonez Age: 50 yrs Sex: Female : 1970 Arrival Date: 05/16/2021 Time: 07:29 Bed 26 Private MD: Diagnosis: Contusion of lower back and pelvis;Contusion of back wall of thorax Presentation: 05/16 07:49 Chief complaint: Patient states: slipped on 4 stairs yesterday , fell on back, now has iw pain all over. Coronavirus screen: At this time, the client does not indicate any symptoms associated with coronavirus-19. Ebola Screen: Patient negative for fever greater than or equal to 101.5 degrees Fahrenheit, and additional compatible Ebola Virus Disease symptoms Patient denies exposure to infectious person. Patient denies travel to an Ebola-affected area in the 21 days before illness onset. No symptoms or risks identified at this time. Initial Sepsis Screen: Does the patient meet any 2 criteria? No. Patient's initial sepsis screen is negative. Does the patient have a suspected source of infection? No. Patient's initial sepsis screen is negative. Risk Assessment: Do you want to hurt yourself or someone else? Patient reports no desire to harm self or others. Onset of symptoms was May 15, 2021. 07:49 Method Of Arrival: Ambulatory iw 07:49 Acuity: DEEPALI 3 iw Historical: - Allergies: 07:51 Naproxen; iw - Home Meds: 07:51 amlodipine 5 mg tab 1 tab once daily [Active]; iw - PMHx: 07:51 Arthritis; GERD; Gout; Hypertension; iw - Family history:: not pertinent. - Hospitalizations: : No recent hospitalization is reported. Screenin:26 Abuse screen: Denies threats or abuse. Denies injuries from another. Nutritional ch5 screening: No deficits noted. Tuberculosis screening: No symptoms or risk factors identified. Fall Risk None identified. Assessment: 08:25 Reassessment: Patient appears in no apparent distress at this time. Reassessment: Pt ch5 falling asleep while IV started. Pt snoring then awakens c/o pain then falling back asleep.. Pain: Pain currently is 10 out of 10 on a pain scale. Vital Signs: 07:49 BP 138 / 102; Pulse 91; Resp 16; Temp 98.5; Pulse Ox 98% on R/A; Weight 84.82 kg; iw Height 5 ft. 3 in. (160.02 cm); 08:26 BP 137 / 97; Pulse 84; Resp 18; Pulse Ox 98% ; Pain 10/10; ch5 07:49 Body Mass Index 33.13 (84.82 kg, 160.02 cm) ED Course: 07:29 Patient arrived in ED. am2 07:35 Humphrey Sandoval MD is Attending Physician. rn 07:51 Triage completed. iw 07:51 Arm band placed on. iw 08:04 Serge Berrios, RN is Primary Nurse. ch5 08:26 Bed in low position. Call light in reach. Side rails up X2. ch5 08:26 No provider procedures requiring assistance completed. Inserted saline lock: 22 gauge ch5 in right antecubital area, using aseptic technique. 08:44 CT Chest, Abdomen, Pelvis - W/Contrast In Process Unspecified. EDMS Administered Medications: No medications were administered Outcome: 09:03 Discharge ordered by . rn 09:46 Discharged to home [facility] 09:46 Condition: improved 09:46 Discharge instructions given to patient. 09:57 Patient left the ED. 5 Signatures: Dispatcher [employer] EDMS Nancie Ware RN RN Humhprey Sandoval MD MD rn Moreno, Amanda Serge Smallwood, NICCI RN [facility]
--- NOTE | 2021-05-16 09:04 | EDPHYS ---
Physician Documentation [facility] Name: Nancie Ordonez Age: 50 yrs Sex: Female : 1970 Arrival Date: 05/16/2021 Time: 07:29 Bed 26 Private MD: ED Physician Humphrey Sandoval HPI: 05/16 07:50 This 50 yrs old Black Female presents to ER via Unassigned with complaints of Fall rn Injury, Back Pain. 07:50 Details of fall: The patient fell from a height, down approximately 4 stairs. Onset: rn The symptoms/episode began/occurred yesterday. Associated injuries: The patient sustained upper back injury, injury to the low back, injury to the abdomen. Severity of symptoms: At their worst the symptoms were moderate, in the emergency department the symptoms are unchanged. The patient has not experienced similar symptoms in the past. The patient has not recently seen a physician. Patient reports fall yesterday, was trying to clean the stairs, slipped and fell down 4 steps, landed on back and slid down remaining steps. Reports pain to posterior thorax/back/abdomen. Denies head injury or loss of consciousness. Does not take any blood thinners. Showed up to work today and her staff told her to come to ER to get checked out because she was walking slowly.. Historical: - Allergies: 07:51 Naproxen; iw - Home Meds: 07:51 amlodipine 5 mg tab 1 tab once daily [Active]; iw - PMHx: 07:51 Arthritis; GERD; Gout; Hypertension; iw - Family history:: not pertinent. - Hospitalizations: : No recent hospitalization is reported. ROS: 07:50 Constitutional: Negative for fever, chills, and weight loss, Eyes: Negative for injury, rn pain, redness, and discharge, Neck: Negative for injury, pain, and swelling, Cardiovascular: Negative for chest pain, palpitations, and edema, Respiratory: Negative for shortness of breath, cough, wheezing, and pleuritic chest pain, Abdomen/GI: Positive for abdominal pain and flank pain Back: Positive for back pain : Negative for injury, bleeding, discharge, and swelling, MS/Extremity: Negative for injury and deformity, Skin: Negative for injury, rash, and discoloration, Neuro: Negative for headache, weakness, numbness, tingling, and seizure. Exam: 07:50 Constitutional: This is a well developed, well nourished patient who is awake, alert, rn moving slowly, was walking in lobby but wheeled back to room Head/Face: Normocephalic, atraumatic. Eyes: Periorbital areas with no swelling, redness, or edema. Neck: No midline cervical tenderness Cardiovascular: Regular rate and rhythm. No pulse deficits. Respiratory: No increased work of breathing, no retractions or nasal flaring. Abdomen/GI: Soft, non-tender Back: Tender over entire back without ecchymosis. Cannot isolate area of pain on exam. Skin: Warm, dry MS/ Extremity: Pulses equal, no cyanosis. Neurovascular intact. Full, normal range of motion. Equal circumference. No obvious trauma of her extremities. No hip tenderness or painful range of motion. Neuro: Awake and alert, GCS 15, oriented to person, place, time, and situation. Cranial nerves II-XII grossly intact. Motor strength 5/5 in all extremities. Sensory grossly intact. Cerebellar exam normal. Vital Signs: 07:49 BP 138 / 102; Pulse 91; Resp 16; Temp 98.5; Pulse Ox 98% on R/A; Weight 84.82 kg; iw Height 5 ft. 3 in. (160.02 cm); 08:26 BP 137 / 97; Pulse 84; Resp 18; Pulse Ox 98% ; Pain 10/10; ch5 07:49 Body Mass Index 33.13 (84.82 kg, 160.02 cm) iw MDM: 07:38 Patient medically screened. rn 09:02 Differential diagnosis: contusion, fracture, sprain, strain. Data reviewed: vital rn signs, nurses notes, radiologic studies, CT scan, and as a result, I will discharge patient. Counseling: I had a detailed discussion with the patient and/or guardian regarding: the historical points, exam findings, and any diagnostic results supporting the discharge/admit diagnosis, radiology results, the need for outpatient follow up, to return to the emergency department if symptoms worsen or persist or if there are any questions or concerns that arise at home. Response to treatment: the patient's symptoms have mildly improved after treatment, and as a result, I will discharge patient. Special discussion: I discussed with the patient/guardian in detail that at this point there is no indication for admission to the hospital. It is understood, however, that if the symptoms persist or worsen the patient needs to return immediately for re-evaluation. ED course: No acute findings on CT of the chest abdomen or pelvis. Will DC home with [id number] anti-inflammatories and rest.. 05/16 07:49 Order name: CBC with Diff rn 05/16 07:49 Order name: IV Start; Complete Time: 08:25 rn 05/16 07:49 Order name: CT Chest, Abdomen, Pelvis - W/Contrast; Complete Time: 09:01 rn 05/16 09:25 Order name: CREATININE WHOLE BLOOD EDMS Administered Medications: No medications were administered Disposition Summary: 05/16/21 09:03 Discharge Ordered Location: Home rn Problem: new rn Symptoms: have improved rn Condition: Stable rn Diagnosis - Contusion of lower back and pelvis rn - Contusion of back wall of thorax rn Followup: rn - With: Private Physician - When: As needed - Reason: Recheck today's complaints, Re-evaluation by your physician Discharge Instructions: - Discharge Summary Sheet rn - Contusion rn Forms: - Medication Reconciliation Form rn - Thank You Letter rn - Antibiotic rn mobile - Prescription Opioid Use rn - Work release form ch5 Prescriptions: - Cyclobenzaprine 5 mg Oral Tablet - take 1 tablet by ORAL route 3 times per day As needed; 10 tablet; Refills: 0, rn Product Selection Permitted Signatures: Dispatcher [employer] Nancie Gallo RN RN Humphrey Randall MD MD rn
[2021-05-16 09:14] LABS: Absolute Lymphocytes (CBC) 1.6 K/uL (0.7-4.9); Basophils % 1.1 % (0-1.3); Hematocrit 37.5 % (36.0-45.0); Lymphocytes % 34.8 % (15.3-44.8); RBC Red Blood Cell Count 4.26 M/uL (3.86-4.86)
[2021-05-16] MEDS ORDERED: KETOROLAC 30 MG/ML INJ ONE (10:00)
[2021-05-16 11:00] VITALS: TEMP 98.5; O2SAT 98
[2021-05-16 11:01] VITALS: BP 137/97
== END 2021-05-16 09:57 | disposition home or self-care (01) ==
LOC: ER 07:27
DX: S30.0XXA Contusion of lower back and pelvis, initial encounter (principal); S20.229A Contusion of unspecified back wall of thorax, initial encounter; W10.9XXA Fall (on) (from) unspecified stairs and steps, initial encounter; Y93.89 Activity, other specified; Z88.6 Allergy status to analgesic agent; I10 Essential (primary) hypertension
CPT/HCPCS: 85025; 82565; 71260; 74177; 99283; Q9967

== ENCOUNTER 2021-05-18 22:42 | Emergency (ER) | payer OTHER ==
[2021-05-18] MEDS ORDERED: NA CHLORIDE 0.9% 1,000 ML ONE (23:31)
[2021-05-18 23:32] LABS: Absolute Lymphocytes (CBC) 1.6 K/uL (0.7-4.9); Basophils % 1.1 % (0-1.3); Hematocrit 37.4 % (36.0-45.0); Lymphocytes % 30.3 % (15.3-44.8); MPV 9.7 fL (7.6-11.3); RBC Red Blood Cell Count 4.29 M/uL (3.86-4.86)
[2021-05-18] MEDS ORDERED: NALOXONE HCL 2 MG/2 ML VIAL ONE (23:52)
[2021-05-19 00:11] LABS: ALT/SGPT 28 U/L (12-78); AST/SGOT 24 U/L (15-37); Albumin 3.7 g/dL (3.4-5.0); Alkaline Phosphatase 106 U/L (45-117); BUN Blood Urea Nitrogen 8 mg/dL (7-18); Bicarbonate 22 mmol/L (21-32); Bilirubin Direct < 0.1 mg/dL (0-0.2); Bilirubin Total 0.2 mg/dL (0.2-1.0); Glucose Level 99 mg/dL (74-106); Magnesium 2.2 mg/dL (1.8-2.4); NT PRO-BNP 29 pg/mL (<125); Potassium 3.2 mmol/L (3.5-5.1); Protein, Total 7.1 g/dL (6.4-8.2); Sodium Level 144 mmol/L (136-145); Troponin (Emerg Dept Use Only) < 0.02 ng/mL (0.0-0.045)
[2021-05-19 00:25] LABS: Protime INR 1.01
[2021-05-19 01:40] LABS: Arterial Blood Carboxyhemoglob 3.5 % (0-1.5); Blood Gas Oxyhemoglobin 86.7 % (94-97); Blood O2 Saturation 90.7 % (92-98.5)
[2021-05-19] MEDS ORDERED: NS KCL 20MEQ 1,000 ML IV ONE (01:56)
[2021-05-19 02:08] LABS: Urine Blood Trace-lysed (Negative); Urine Glucose Negative (Negative); Urine Protein Negative (Negative)
[2021-05-19 02:36] LABS: Barbiturates NEGATIVE (NEGATIVE); Benzodiazepines POSITIVE (NEGATIVE); Cocaine NEGATIVE (NEGATIVE); METHAMPHETAM NEGATIVE (NEGATIVE); Methadone NEGATIVE (NEGATIVE); Opiates NEGATIVE (NEGATIVE); Phencyclidine NEGATIVE (NEGATIVE); THC Cannibis NEGATIVE (NEGATIVE)
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
[2021-05-19 03:48] VITALS: BP 121/83; TEMP 98.2; O2SAT 98
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
== END 2021-05-19 03:32 | disposition home or self-care (01) ==
LOC: ER 22:42
DX: R41.82 Altered mental status, unspecified (principal); T48.291A Poisoning by other drugs acting on muscles, accidental (unintentional), initial encounter; V49.49XA Driver injured in collision with other motor vehicles in traffic accident, initial encounter; I10 Essential (primary) hypertension; Z88.6 Allergy status to analgesic agent
CPT/HCPCS: 96361; 93005; 85025; 80048; 36415; 80320; 86900; 83735; 86850; 80329; 85610; 82565; 86901; 80076; 85730; 81003; 84484; 83880; 80307; 70450; 72125; 71260; 74177; 71045; 82805; 96374; 99291; 99292; Q9967; J2310; J7030; J3480

== ENCOUNTER 2021-05-19 16:39 | Emergency (ER) | payer OTHER ==
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
[2021-05-19] MEDS ORDERED: CYCLOBENZAPRINE 10 MG TAB ONE (20:05)
[2021-05-19] MEDS ORDERED: ACETAMINOPHEN 500 MG TAB ONE (20:06)
[2021-05-19 20:28] VITALS: O2SAT 97
[2021-05-19 20:30] VITALS: BP 145/80; TEMP 98.5
== END 2021-05-19 19:51 | disposition home or self-care (01) ==
LOC: ER 16:39
DX: R52 Pain, unspecified (principal); V49.49XS Driver injured in collision with other motor vehicles in traffic accident, sequela
CPT/HCPCS: 99283

== ENCOUNTER 2021-07-11 09:06 | Emergency (ER) | payer OTHER ==
--- NOTE | 2021-07-11 09:33 | ER ---
Nurse's Notes [facility] Name: Nancie Ordonez Age: 50 yrs Sex: Female : 1970 Arrival Date: 07/11/2021 Time: 09:09 Bed 12 Private MD: Parish Cyr Diagnosis: Muscle spasm of back Presentation: 07/11 09:13 Chief complaint: Patient states: "my head hurts and my body aches since the beginning aa5 of the week". Coronavirus screen: headache, muscle pain. Ebola Screen: No symptoms or risks identified at this time. Initial Sepsis Screen: Does the patient meet any 2 criteria? No. Patient's initial sepsis screen is negative. Does the patient have a suspected source of infection? No. Patient's initial sepsis screen is negative. Risk Assessment: Do you want to hurt yourself or someone else? Patient reports no desire to harm self or others. Onset of symptoms was 2020. 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 - Social history:: Smoking status: Patient denies any tobacco usage or history of. Screenin:33 Abuse screen: Denies threats or abuse. Denies injuries from another. Nutritional jh5 screening: No deficits noted. Tuberculosis screening: No symptoms or risk factors identified. Fall Risk Secondary diagnosis (15 points) impaired mobility, Pt musculoskeletal pain causing her gait to be slightly disturbed; which could lead to falls. Pt educated to use call light and not to get up without assistance. . Assessment: 09:30 General: Appears uncomfortable, well nourished, Behavior is calm, cooperative. Pain:. jh5 Neuro: No deficits noted. Level of Consciousness is awake, alert, obeys commands, Oriented to person, place, time, situation, Speech is normal. Cardiovascular: No deficits noted. Capillary refill < 3 seconds Patient's skin is warm and dry. Respiratory: No deficits noted. Airway is patent Trachea midline Respiratory effort is even, unlabored. Vital Signs: 09:13 BP 123 / 83; Pulse 88; Resp 16 S; Temp 98.3(TE); Pulse Ox 100% on R/A; Weight 79.83 kg aa5 (R); Height 5 ft. 3 in. (160.02 cm) (R); 09:13 Body Mass Index 31.18 (79.83 kg, 160.02 cm) aa5 ED Course: 09:09 Patient arrived in ED. am2 09:09 Parish Cyr MD is Private Physician. am2 09:12 Arm band placed on. aa5 09:14 Triage completed. aa5 09:16 Jes Holt, RN is Primary Nurse. tw2 09:24 Jarett Fontana PA is PHCP. jr8 09:24 Tiana Galarza MD is Attending Physician. jr8 09:25 Primary Nurse role handed off by Jes Holt RN jh5 09:25 Hannah Ramires RN is Primary Nurse. jh5 09:30 Parish Cyr MD is Referral Physician. jr8 09:34 No provider procedures requiring assistance completed. Patient did not have IV access jh5 during this emergency room visit. 09:35 Patient has correct armband on for positive identification. Bed in low position. Side 5 rails up X 1. Administered Medications: No medications were administered Outcome: 09:31 Discharge ordered by . jr8 09:36 Discharged to home ambulatory, with family. jh5 09:36 Condition: good 09:36 Discharge instructions given to patient, family. 09:38 Instructed on discharge instructions, follow up and referral plans. medication usage, [facility] safety practices, Demonstrated understanding of instructions, follow-up care, medications, Prescriptions given X 2. 09:38 Patient left the ED. [facility] Signatures: Barbara Washington RN RN 5 Jarett Fontana PA PA jr8 Jes Holt RN RN 2 Luly Villalpando am2 Hannah Ramires RN RN [facility]
--- NOTE | 2021-07-11 09:33 | EDPHYS ---
Physician Documentation [facility] Name: Nancie Ordonez Age: 50 yrs Sex: Female : 1970 Arrival Date: 07/11/2021 Time: 09:09 Bed 12 Private MD: Parish Cyr ED Physician Tiana Galarza HPI: 07/11 15:26 This 50 yrs old Black Female presents to ER via Ambulatory with complaints of Back pain.jr8 15:26 Is a 50-year-old female patient that presented to the emergency room with complaints of jr8 upper and mid back pain. Patient stated that she has been working a significant amount lately and has been doing a lot of heavy lifting and repetitious motions. Stated that she has had muscle pain for the past few weeks but that had markedly increased over the past couple days.. 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 - Social history:: Smoking status: Patient denies any tobacco usage or history of. ROS: 15:26 Eyes: Negative for injury, pain, redness, and discharge, ENT: Negative for injury, jr8 pain, and discharge, Neck: Negative for injury, pain, and swelling, Cardiovascular: Negative for chest pain, palpitations, and edema, Respiratory: Negative for shortness of breath, cough, wheezing, and pleuritic chest pain, Abdomen/GI: Negative for abdominal pain, nausea, vomiting, diarrhea, and constipation, MS/Extremity: Negative for injury and deformity, Skin: Negative for injury, rash, and discoloration, Neuro: Negative for headache, weakness, numbness, tingling, and seizure. 15:26 Back: Positive for pain at rest, pain with movement. Exam: 15:26 Constitutional: This is a well developed, well nourished patient who is awake, alert, jr8 and in no acute distress. Neck: Trachea midline, no thyromegaly or masses palpated, and no cervical lymphadenopathy. Supple, full range of motion without nuchal rigidity, or vertebral point tenderness. No Meningismus. Chest/axilla: Normal chest wall appearance and motion. Nontender with no deformity. No lesions are appreciated. Cardiovascular: Regular rate and rhythm with a normal S1 and S2. No gallops, murmurs, or rubs. Normal PMI, no JVD. No pulse deficits. Respiratory: Lungs have equal breath sounds bilaterally, clear to auscultation and percussion. No rales, rhonchi or wheezes noted. No increased work of breathing, no retractions or nasal flaring. Abdomen/GI: Soft, non-tender, with normal bowel sounds. No distension or tympany. No guarding or rebound. No evidence of tenderness throughout. Skin: Warm, dry with normal turgor. Normal color with no rashes, no lesions, and no evidence of cellulitis. MS/ Extremity: Pulses equal, no cyanosis. Neurovascular intact. Full, normal range of motion. Neuro: Awake and alert, GCS 15, oriented to person, place, time, and situation. Cranial nerves II-XII grossly intact. Motor strength 5/5 in all extremities. Sensory grossly intact. 15:26 Back: pain, that is mild, of the left scapular area, right scapular area, left subscapular area and right subscapular area, ROM is painful, with flexion, normal spinal alignment noted, CVA tenderness, is absent, vertebral tenderness, is not appreciated. Vital Signs: 09:13 BP 123 / 83; Pulse 88; Resp 16 S; Temp 98.3(TE); Pulse Ox 100% on R/A; Weight 79.83 kg aa5 (R); Height 5 ft. 3 in. (160.02 cm) (R); 09:13 Body Mass Index 31.18 (79.83 kg, 160.02 cm) aa5 MDM: 09:24 Patient medically screened. 8 09:25 Data reviewed: vital signs, nurses notes, and as a result, I will discharge patient. jr8 Data interpreted: Pulse oximetry: on room air is 100 %. Interpretation: normal. Counseling: I had a detailed discussion with the patient and/or guardian regarding: the historical points, exam findings, and any diagnostic results supporting the discharge/admit diagnosis, the need for outpatient follow up, a family practitioner, to return to the emergency department if symptoms worsen or persist or if there are any questions or concerns that arise at home. ED course: Patient presented with general muscle aches from repetitive work motions at her job site. Based on physical exam it does appear that it is musculoskeletal in origin. Patient had no other signs and symptoms present. Vital signs stable and was afebrile. No focal neurologic deficits present on exam as well. Will treat with muscle relaxant and steroid to see how she does. Patient reminded that she needs to follow-up with her primary care physician as well. If she were to evolve with new symptoms or have worsening symptoms to come back for further evaluation. Patient good with plan at this time.. Administered Medications: No medications were administered Disposition: 07/12 08:40 Co-signature as Attending Physician, Tiana Galarza MD I agree with the assessment and sp3 plan of care. Disposition Summary: 07/11/21 09:31 Discharge Ordered Location: Home jr Condition: Stable jr8 Diagnosis - Muscle spasm of back jr8 Followup: jr8 - With: Parish Cyr MD - When: 1 week - Reason: Recheck today's complaints, Continuance of care, Re-evaluation by your physician Discharge Instructions: - Discharge Summary Sheet jr8 - Muscle Cramps and Spasms jr8 - Back Exercises, [id number] jr8 - Heat Therapy jr8 Forms: - Medication Reconciliation Form jr8 - Thank You Letter jr8 - Antibiotic Education jr8 - Prescription Opioid Use jr8 - Work release form bd Prescriptions: - Cyclobenzaprine 10 mg Oral Tablet - take 1 tablet by ORAL route every 8 hours As needed; 30 tablet; Refills: 0, jr8 Product Selection Permitted - Medrol (Royal) 4 mg Oral Tablets, Dose Pack - take 1 tablet by ORAL route as directed - follow package instructions; 1 jr8 packet; Refills: 0, Product Selection Permitted Signatures: Barbara Washington, RN RN aa5 Jarett Fontana PA PA jr8 Tiana Galarza MD MD sp3
[2021-07-11 10:03] VITALS: BP 123/83; TEMP 98.3; O2SAT 100
--- OUTSIDE RECORDS SUMMARY | 2021-07-16 16:19 | XMS REPORT | Continuity of Care Document ---
:1970 Author Organization [facility] t Address [address] [place] [address] Care Team Providers Name Role Phone [facility] Primary Care Physician Doctor Unassigned, Name Attending Clinician Unavailable Payers Payer Name Policy Type Policy Number Effective Date Expiration Date S ource Problems Condition Condition Condition Status Onset Resolution Last Treating Co mments Source Name Details Category Date Date Treatment Clinician Date Depo-Prove Depo-Prove Disease Active U nivers ra ra 4-13 [place] status 00 Me dical Branch Allergies, Adverse Reactions, Alerts Allergy Allergy Status Severity Reaction(s) Onset Inactive Treating Comm ents Source Name Type Date Date Clinician naproxen DA Active SV 2017- [facility] 2-27 [place] 00:00: [facility] 00 [facility] Naproxen Propensi Active Unknown - Uni vers ty to See comments 03-11 ity of adverse 00:00: [place] reaction 00 Medical s to Branch drug Social History Social Habit Start Date Stop Date Quantity Comments Source History SDAK University o f Alcohol Std Drinks [place] [facility] History [facility] University o f Alcohol Binge [place] Medic al Branch History [facility] University o f Alcohol Frequency [facility] [place] [facility] edical Branch Alcohol intake 2019-06-18 2019-06-18 Current drinker Unive rsity of 00:00:00 00:00:00 of alcohol [place] Medical (finding) Branch Alcohol Comment 2016-12-14 2016-12-14 infrequent - Univers ity of 00:00:00 00:00:00 family parties, [place] Med ical wine, 12 oz/time Branch Cigarettes smoked 2016-12-14 2016-12-14 Univers ity of current (pack per 00:00:00 00:00:00 [place] ) - Reported Branch Cigarette 2016-12-14 2016-12-14 University of pack-years 00:00:00 00:00:00 [facility] Tobacco use and 2016-12-14 2016-12-14 Never used Universit y of exposure 00:00:00 00:00:00 [facility] History of tobacco 2001-12-14 Cigarette Smoker University of use 00:00:00 [facility] Sex Assigned At [birth year] Universit y of 00:00:00 00:00:00 [facility] Smoking Status Start Date Stop Date Source Former smoker 2016-12-14 00:00:00 2016-12-14 00:00:00 Universi ty of [facility] Medications Ordered Filled Start Stop Current Ordering Indication Dosage Frequency Signature Comments Components Source Medication Medication Date Date Medication? Clinician (SIG) Name Name lurasidone Yes Take by Uni vers HCl (LATUDA 7-17 mouth. ity of ORAL) 10:16: [place] 57 Medical Branch betamethaso 0 Yes SMILEY EXT AA Univers ne valerate 5-24 BID ity of 0.1 % 00:00: [place] ointment 00 Medical Branch triamterene Yes TK 1 C PO U nivers -hydrochlor 5-24 QAM ity of othiazide 00:00: [place] 37.5-25 mg 00 Medical per capsule Branch DEXILANT 60 Yes TK 1 C PO U nivers mg capsule 9-28 QD ity of 00:00: [place] 00 Medical Branch proMETHazin Yes TK 1 T PO U nivers e 25 mg 3-29 Q 12 H PRN ity of tablet 00:00: FOR 30 [place] 00 DAYS Medical Branch amLODIPine Yes TK 1 T PO Un guillermina 5 mg tablet 3-21 Q NIGHTLY ity of 00:00: [place] 00 Medical Branch HYDROcodone 2016-0 Yes 1{tbl} Take 1 Un guillermina -acetaminop 2-08 tablet by ity of hen 10-325 00:00: mouth. [place] mg tablet 00 Medical Branch betamethaso 2012-0 Yes [id number] Apply to [facility] 2-13 area(s) ity of dipropionat 00:00: two (2) José Miguel as e 00 times Medical (DIPROLENE) daily. Branch 0.05 % cream Immunizations Ordered Filled Immunization Date Status Comments [facility] e Immunization Name Name Influenza Virus 2007-07-02 Completed Universit y of Vaccine 00:00:00 [facility] Procedures Procedure Date / Time Performing Clinician Source Performed AUTHORIZATION FOR 2021-06-09 05:01:00 Doctor Unassigned, No [facility] RELEASE OF PHI Name Medical Branch Encounters Start End Encounter Admission Attending Care Care Encounter Source Date/Time Date/Time Type Type Clinicians Facility Department ID 2021-06-09 2021-06-09 Orders Doctor MARISCAL [id number] [facility] 00:00:00 00:00:00 Only Unassigned, BETH [id number] ity of [place] [facility] [id number] José Miguel as [phone] [facility] 009 Branch Results This patient has no known results.
== END 2021-07-11 09:38 | disposition home or self-care (01) ==
LOC: ER 09:06
DX: M62.830 Muscle spasm of back (principal); I10 Essential (primary) hypertension; Z88.5 Allergy status to narcotic agent
CPT/HCPCS: 99282

== ENCOUNTER 2021-07-12 18:55 | Emergency (ER) | payer OTHER ==
[2021-07-12] MEDS ORDERED: NA CHLORIDE 0.9% 1,000 ML ONE ×2 (20:39→22:12)
[2021-07-12 20:43] LABS: Basophils % 0.7 % (0-1.3); Hematocrit 39.4 % (36.0-45.0); Lymphocytes % 10.6 % (15.3-44.8); MPV 9.8 fL (7.6-11.3); RBC Red Blood Cell Count 4.59 M/uL (3.86-4.86)
[2021-07-12 21:07] LABS: ALT/SGPT 34 U/L (12-78); AST/SGOT 22 U/L (15-37); Albumin 4.1 g/dL (3.4-5.0); Alkaline Phosphatase 103 U/L (45-117); BUN Blood Urea Nitrogen 11 mg/dL (7-18); Bicarbonate 20 mmol/L (21-32); Bilirubin Direct < 0.1 mg/dL (0-0.2); Bilirubin Total 0.2 mg/dL (0.2-1.0); Creatine Phosphokinase 366 U/L (26-192); Glucose Level 109 mg/dL (74-106); Magnesium 2.2 mg/dL (1.8-2.4); Potassium 3.5 mmol/L (3.5-5.1); Protein, Total 7.8 g/dL (6.4-8.2); Sodium Level 143 mmol/L (136-145); Troponin (Emerg Dept Use Only) < 0.02 ng/mL (0.0-0.045)
--- NOTE | 2021-07-12 21:40 | RAD REPORT ---
EXAM DESCRIPTION: RAD - Chest Single View - 07/12/2021 9:02 pm CLINICAL HISTORY: MALAISE COMPARISON: May 18 TECHNIQUE: AP portable chest image was obtained 07/12/2021 9:02 pm . FINDINGS: Lung volumes are low. Lung base atelectasis present potentially masking minimal infiltrate . Failure and volume overload are not suspected. Heart and vasculature are normal. No measurable pleu ral effusion and no pneumothorax. No acute bony abnormality seen. No acute aortic findings suspected. IMPRESSION: Limited portable study without acute cardiopulmonary process. Shallow inspiration lung base atelectasis could mask minimal interstitial edema or infiltrate.
[2021-07-12 21:42] LABS: Urine Blood 1+ (Negative); Urine Glucose Negative (Negative); Urine Protein Negative (Negative)
--- NOTE | 2021-07-12 22:10 | EDPHYS ---
Physician Documentation [facility] Name: Nancie Ordonez Age: 50 yrs Sex: Female : 1970 Arrival Date: 07/12/2021 Time: 18:56 Bed 24 Private MD: ED Physician Tiana Galarza HPI: 07/12 20:36 This 50 yrs old Black Female presents to ER via Ambulatory with complaints of Pain All sp3 Over. 20:36 50-year-old female with history of hypertension, arthritis, GERD presents to the ED for sp3 "pain all over". Patient was seen yesterday for body aches and was given Flexeril and steroid and discharged. Today patient returns for similar symptoms and is tachycardic in triage at 126 pulse rate. Patient is vague in her symptoms and simply states that her body hurts all over. is in the room and states that she may have "taken other medications". Patient is on oral narcotics and has been states that she may have taken some benzodiazepines. She denies headache, neck pain, chest pain, abdominal pain or any other area specific pains. She also denies nausea, vomiting, diarrhea, fever, decreased urine output, focal neurological symptoms, any other symptoms on ROS at this time. Remainder of ROS is negative.. 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 - Social history:: Smoking status: Patient denies any tobacco usage or history of. Patient/guardian denies using alcohol. ROS: 20:38 Eyes: Negative for injury, pain, redness, and discharge, ENT: Negative for injury, sp3 pain, and discharge, Neck: Negative for injury, pain, and swelling, Cardiovascular: Negative for chest pain, palpitations, and edema, Respiratory: Negative for shortness of breath, cough, wheezing, and pleuritic chest pain, Abdomen/GI: Negative for abdominal pain, nausea, vomiting, diarrhea, and constipation, Back: Negative for injury and pain, Skin: Negative for injury, rash, and discoloration, Neuro: Negative for headache, weakness, numbness, tingling, and seizure, Psych: Negative for depression, anxiety, suicide ideation, homicidal ideation, and hallucinations, Allergy/Immunology: Negative for hives, rash, and allergies, Endocrine: Negative for neck swelling, polydipsia, polyuria, polyphagia, and marked weight changes. 20:38 Constitutional: Positive for body aches, Patient is obese states she "hurts all over". 20:38 All other systems are negative. 20:38 Unable to obtain ROS due to patient being uncooperative. Exam: 20:39 Constitutional: This is a well developed, well nourished patient who is awake, alert, sp3 and in no acute distress. Head/Face: Normocephalic, atraumatic. Eyes: Pupils equal round and reactive to light, extra-ocular motions intact. Lids and lashes normal. Conjunctiva and sclera are non-icteric and not injected. Cornea within normal limits. Periorbital areas with no swelling, redness, or edema. ENT: Nares patent. No nasal discharge, no septal abnormalities noted. External auditory canals are clear. Oropharynx with no redness, swelling, or masses, exudates, or evidence of obstruction, uvula midline. Mucous membranes moist. Neck: Trachea midline, no thyromegaly or masses palpated, and no cervical lymphadenopathy. Supple, full range of motion without nuchal rigidity, or vertebral point tenderness. No Meningismus. Chest/axilla: Normal chest wall appearance and motion. Nontender with no deformity. No lesions are appreciated. Respiratory: Lungs have equal breath sounds bilaterally, clear to auscultation and percussion. No rales, rhonchi or wheezes noted. No increased work of breathing, no retractions or nasal flaring. Abdomen/GI: Soft, non-tender, with normal bowel sounds. No distension or tympany. No guarding or rebound. No evidence of tenderness throughout. Back: No spinal tenderness. No costovertebral tenderness. Full range of motion. Skin: Warm, dry with normal turgor. Normal color with no rashes, no lesions, and no evidence of cellulitis. MS/ Extremity: Pulses equal, no cyanosis. Neurovascular intact. Full, normal range of motion. Neuro: Awake and alert, GCS 15, oriented to person, place, time, and situation. Cranial nerves II-XII grossly intact. Motor strength 5/5 in all extremities. Sensory grossly intact. Cerebellar exam normal. Normal gait. 20:39 Cardiovascular: Patient is regular rate and rhythm without any abnormalities on cardiac exam with exception of tachycardia. By the time I examined her heart rate was 106 bpm the patient was in no acute distress.. 20:39 Psych: Patient denies suicidal ideation, homicidal ideation, or any illicit drug use. Patient is not psychotic.. 21:22 ECG was reviewed by the Attending Physician. Sinus tachycardia at 108 bpm with normal sp3 intervals, normal QRS, normal axis, diffuse T wave inversions inferior laterally without ST segment changes. Vital Signs: 19:16 BP 109 / 79; Pulse 126; Resp 22; Temp 98.7(TE); Pulse Ox 99% on R/A; Weight 74.84 kg; ld1 Height 5 ft. 3 in. (160.02 cm); Pain 9/10; 21:42 BP 150 / 90; Pulse 105; Resp 18; Temp 98.5; Pulse Ox 99% on R/A; Pain 6/10; mr2 23:00 BP 137 / 86; Pulse 93; Resp 17; Temp 98.4; Pulse Ox 98% on R/A; mr2 19:16 Body Mass Index 29.23 (74.84 kg, 160.02 cm) ld1 MDM: 20:12 Patient medically screened. sp3 20:40 Data reviewed: vital signs, nurses notes, 50-year-old female with vague symptoms and sp3 mild tachycardia. We will take a broad approach with IV fluids, laboratory values including a CK level, urinalysis, chest x-ray, and EKG. If work-up is negative and patient feels better and heart rate is improved, will discharge patient home with diagnosis of continued mild dehydration and fatigue. And not highly suspicious for sepsis, infection, COVID-19, ACS, PE, or any other critical findings at this time.. 22:08 ED course: Patient has mildly elevated CPK at 366 also a mild UTI. Will administer a sp3 second liter of normal saline and discharge patient on p.o. Bactrim with PCP follow-up.. 07/12 20:27 Order name: Basic Metabolic Panel sp3 07/12 20:27 Order name: CBC with Diff; Complete Time: 22:06 sp3 07/12 20:27 Order name: LFT's; Complete Time: 22:06 sp3 07/12 20:27 Order name: Magnesium; Complete Time: 22:06 sp3 07/12 20:27 Order name: Troponin (emerg Dept Use Only); Complete Time: 22:06 sp3 07/12 20:27 Order name: CK; Complete Time: 22:06 sp3 07/12 20:27 Order name: XRAY Chest (1 view); Complete Time: 22:06 sp3 07/12 20:27 Order name: EKG; Complete Time: 20:28 sp3 07/12 20:27 Order name: Cardiac monitoring; Complete Time: 20:32 sp3 07/12 20:27 Order name: UDS sp3 07/12 20:27 Order name: Basic Metabolic Panel; Complete Time: 22:06 EDMS 07/12 21:41 Order name: Urine Dipstick-Ancillary EDMS 07/12 20:27 Order name: EKG - Nurse/Tech; Complete Time: 21:19 sp3 07/12 20:27 Order name: IV Saline Lock; Complete Time: 20:32 sp3 07/12 20:27 Order name: Labs collected and sent; Complete Time: 20:32 sp3 07/12 20:27 Order name: O2 Per Protocol; Complete Time: 20:32 sp3 07/12 20:27 Order name: O2 Sat Monitoring; Complete Time: 20:32 sp3 07/12 20:27 Order name: Urine Dipstick-Ancillary (obtain specimen); Complete Time: 21:35 sp3 Administered Medications: 20:46 Drug: NS 0.9% 1000 ml Route: IV; Rate: 1 bolus; Site: left antecubital; mr2 22:20 Drug: NS 0.9% 1000 ml Route: IV; Rate: 1 bolus; Site: left antecubital; mr2 Disposition Summary: 07/12/21 22:09 Discharge Ordered Location: Home sp3 Condition: Stable sp3 Diagnosis - Rhabdomyolysis sp3 - UTI/ Urinary tract infection, site not specified sp3 Followup: sp3 - With: Private Physician - When: - Reason: Re-evaluation by your physician Discharge Instructions: - Discharge Summary Sheet sp3 - Rhabdomyolysis sp3 - Urinary Tract Infection, Adult sp3 Forms: - Medication Reconciliation Form sp3 - Thank You Letter sp3 - Antibiotic Education sp3 - Prescription Opioid Use sp3 Prescriptions: - Bactrim DS 800-160 mg Oral Tablet - take 1 tablet by ORAL route every 12 hours for 3 days; 6 tablet; Refills: 0, sp3 Product Selection Permitted Signatures: Dispatcher [employer] EDMS Thalia Hooper RN RN ld1 Tiana Galarza MD MD sp3 Roni Barnhart RN RN mr2
--- NOTE | 2021-07-12 22:10 | ER ---
Nurse's Notes [facility] Name: Nancie Ordonez Age: 50 yrs Sex: Female : 1970 Arrival Date: 07/12/2021 Time: 18:56 Bed 24 Private MD: Diagnosis: Rhabdomyolysis;UTI/ Urinary tract infection, site not specified Presentation: 07/12 19:16 Chief complaint: Patient states: I began having pain all over your body today. Denies ld1 injury. Coronavirus screen: At this time, the client does not indicate any symptoms associated with coronavirus-19. Ebola Screen: No symptoms or risks identified at this time. Initial Sepsis Screen: Does the patient meet any 2 criteria? No. Patient's initial sepsis screen is negative. Does the patient have a suspected source of infection? No. Patient's initial sepsis screen is negative. Risk Assessment: Do you want to hurt yourself or someone else? Patient reports no desire to harm self or others. Onset of symptoms was July 12, 2021. 19:16 Method Of Arrival: Ambulatory ld1 19:16 Acuity: DEEPALI 4 ld1 Triage Assessment: 19:23 General: Appears in no apparent distress. comfortable, Behavior is calm, cooperative, ld1 appropriate for age. Pain: Complains of pain in All over Pain does not radiate. Pain currently is 9 out of 10 on a pain scale. Quality of pain is described as throbbing, Pain began suddenly, Is continuous. EENT: No signs and/or symptoms were reported regarding the EENT system. Neuro: Level of Consciousness is awake, obeys commands, confused, Oriented to person, place, time, situation. Cardiovascular: Capillary refill < 3 seconds Patient's skin is warm and dry. Respiratory: Airway is patent Respiratory effort is even, unlabored, Respiratory pattern is regular, symmetrical. GI: Abdomen is round non-distended. Musculoskeletal: Reports pain in All over. 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 - Social history:: Smoking status: Patient denies any tobacco usage or history of. Patient/guardian denies using alcohol. Screenin:16 Abuse screen: Denies threats or abuse. Denies injuries from another. Nutritional mr2 screening: No deficits noted. Tuberculosis screening: No symptoms or risk factors identified. Fall Risk Secondary diagnosis (15 points) impaired mobility, Ambulatory Aid- Gait- Impaired (20 pts.). Mental Status-. Assessment: 20:16 General: Appears. Neuro: Level of Consciousness is lethargic, stuporous, Speech is mr2 slurred. Vital Signs: 19:16 BP 109 / 79; Pulse 126; Resp 22; Temp 98.7(TE); Pulse Ox 99% on R/A; Weight 74.84 kg; ld1 Height 5 ft. 3 in. (160.02 cm); Pain 9/10; 21:42 BP 150 / 90; Pulse 105; Resp 18; Temp 98.5; Pulse Ox 99% on R/A; Pain 6/10; mr2 23:00 BP 137 / 86; Pulse 93; Resp 17; Temp 98.4; Pulse Ox 98% on R/A; mr2 19:16 Body Mass Index 29.23 (74.84 kg, 160.02 cm) ld1 ED Course: 18:56 Patient arrived in ED. ds1 19:16 Thalia Hooper, RN is Primary Nurse. ld1 19:23 Triage completed. ld1 19:23 Arm band placed on right wrist. ld1 20:04 Tiana Galarza MD is Attending Physician. sp3 20:21 Call light in reach. Side rails up X2. Adult w/ patient. mr2 20:21 No provider procedures requiring assistance completed. Inserted saline lock: 20 gauge mr2 in right antecubital area, using aseptic technique. 20:31 Basic Metabolic Panel Sent. mr2 20:31 CK Sent. mr2 20:32 Basic Metabolic Panel Sent. mr2 20:32 CBC with Diff Sent. mr2 20:32 LFT's Sent. mr2 20:32 Magnesium Sent. mr2 20:32 Troponin (emerg Dept Use Only) Sent. mr2 21:02 XRAY Chest (1 view) In Process Unspecified. EDMS 21:35 UDS Sent. mr2 23:00 IV discontinued. mr2 Administered Medications: 20:46 Drug: NS 0.9% 1000 ml Route: IV; Rate: 1 bolus; Site: left antecubital; mr2 22:20 Drug: NS 0.9% 1000 ml Route: IV; Rate: 1 bolus; Site: left antecubital; mr2 Outcome: 22:09 Discharge ordered by . sp3 23:00 Discharged to home ambulatory, with family. mr2 23:00 Condition: stable 23:00 Discharge instructions given to family, Instructed on discharge instructions, follow up and referral plans. medication usage, Prescriptions given X 1. 07/13 00:06 Patient left the ED. mr2 Signatures: Dispatcher [employer] EDRI Rodas, Sana ds1 Thalia Hooper, RN RN ld1 Tiana Galarza MD MD sp3 Roni Barnhart RN RN mr2
[2021-07-12 22:15] LABS: Barbiturates NEGATIVE (NEGATIVE); Benzodiazepines POSITIVE (NEGATIVE); Cocaine NEGATIVE (NEGATIVE); METHAMPHETAM NEGATIVE (NEGATIVE); Methadone NEGATIVE (NEGATIVE); Opiates NEGATIVE (NEGATIVE); Phencyclidine NEGATIVE (NEGATIVE); THC Cannibis NEGATIVE (NEGATIVE)
[2021-07-13 01:16] VITALS: BP 137/86; TEMP 98.4; O2SAT 98
--- NOTE | 2021-07-15 20:46 | EKG ---
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
--- OUTSIDE RECORDS SUMMARY | 2021-07-16 18:21 | XMS REPORT | Continuity of Care Document ---
:1970 Author Organization [facility] t Address [address] [place] [address] Care Team Providers Name Role Phone [facility] Primary Care Physician Doctor Unassigned, Name Attending Clinician Unavailable Payers Payer Name Policy Type Policy Number Effective Date Expiration Date S ource Problems Condition Condition Condition Status Onset Resolution Last Treating Co mments Source Name Details Category Date Date Treatment Clinician Date Depo-Prove Depo-Prove Disease Active U nivers ra ra 4- [place] of contrace[place] status 00 Me dical Branch Allergies, Adverse Reactions, Alerts Allergy Allergy Status Severity Reaction(s) Onset Inactive Treating Comm ents Source Name Type Date Date Clinician naproxen DA Active [facility] [place] 00:00: [facility] Naproxen Propensi Active Unknown - Uni vers ty to See comments 03-11 ity of adverse 00:00: [place] reaction 00 Medical s to Branch drug Social History Social Habit Start Date Stop Date Quantity Comments Source History SDOH University o f Alcohol Std Drinks [place] [facility] History SDOH University o f Alcohol Binge [place] Medic al Branch History SDIL University o f Alcohol Frequency [facility] edical Branch Alcohol intake 2019-06-18 2019-06-18 Current drinker Unive rsity of 00:00:00 00:00:00 of alcohol [place] Medical (finding) Branch Alcohol Comment 2016-12-14 2016-12-14 infrequent - Univers ity of 00:00:00 00:00:00 family parties, [place] Med ical wine, 12 oz/time Branch Cigarettes smoked 2016-12-14 2016-12-14 Univers ity of current (pack per 00:00:00 00:00:00 [place] ) - Reported Branch Cigarette 2016-12-14 2016-12-14 University of pack-years 00:00:00 00:00:00 [facility] Tobacco use and 2016-12-14 2016-12-14 Never used Universit y of exposure 00:00:00 00:00:00 [facility] History of tobacco 2001-12-14 Cigarette Smoker University of use 00:00:00 [facility] Sex Assigned At [birth year] Universit y of 00:00:00 00:00:00 [facility] Smoking Status Start Date Stop Date Source Former smoker 2016-12-14 00:00:00 2016-12-14 00:00:00 Universi ty of [facility] Medications Ordered Filled Start Stop Current Ordering Indication Dosage Frequency Signature Comments Components Source Medication Medication Date Date Medication? Clinician (SIG) Name Name lurasidone Yes Take by Uni vers HCl (LATUDA 7-17 mouth. ity of ORAL) 10:16: [place] 57 Medical Branch betamethaso 0 Yes SMILEY EXT AA Univers ne valerate 5-24 BID ity of 0.1 % 00:00: [place] ointment 00 Medical Branch triamterene 0 Yes TK 1 C PO U nivers -hydrochlor 5-24 QAM ity of othiazide 00:00: [place] 37.5-25 mg 00 Medical per capsule Branch DEXILANT 60 Yes TK 1 C PO U nivers mg capsule 9-28 QD ity of 00:00: [place] 00 Medical Branch proMETHazin Yes TK 1 T PO U nivers e 25 mg 3-29 Q 12 H PRN ity of tablet 00:00: FOR 30 [place] 00 DAYS Medical Branch amLODIPine Yes TK 1 T PO Un guillermina 5 mg tablet 3-21 Q NIGHTLY ity of 00:00: [place] 00 Medical Branch HYDROcodone Yes 1{tbl} Take 1 Un guillermina -acetaminop 2-08 tablet by ity of hen 10-325 00:00: mouth. [place] mg tablet 00 Medical Branch betamethaso 2013-0 Yes [id number] Apply to [facility] ne 2-13 area(s) ity of dipropionat 00:00: two (2) José Miguel as e 00 times Medical (DIPROLENE) daily. Branch 0.05 % cream Immunizations Ordered Filled Immunization Date Status Comments Sour e Immunization Name Name Influenza Virus 2007-07-02 Completed Universit y of Vaccine 00:00:00 [facility] Procedures Procedure Date / Time Performing Clinician Source Performed AUTHORIZATION FOR 2021-06-09 05:01:00 Doctor Unassigned, No [facility] RELEASE OF PHI Name Medical Branch Encounters Start End Encounter Admission Attending Care Care Encounter Source Date/Time Date/Time Type Type Clinicians Facility Department ID 2021-06-09 2021-06-09 Orders Doctor MARISCAL [id number] [facility] 00:00:00 00:00:00 Only Unassigned, BETH [id number] ity of [place] [facility] [id number] José Miguel as [phone] [facility] 009 Branch Results This patient has no known results.
== END 2021-07-13 00:06 | disposition home or self-care (01) ==
LOC: ER 18:55
DX: M62.82 Rhabdomyolysis (principal); N39.0 Urinary tract infection, site not specified; I10 Essential (primary) hypertension; K21.9 Gastro-esophageal reflux disease without esophagitis; M19.90 Unspecified osteoarthritis, unspecified site; M10.9 Gout, unspecified; Z88.8 Allergy status to other drugs, medicaments and biological substances
CPT/HCPCS: 93005; 85025; 80048; 36415; 83735; 82550; 80076; 81003; 84484; 80307; 71045; 99284; J7030 ×2

== ENCOUNTER 2021-08-09 10:55 | Emergency (ER) | payer OTHER ==
[2021-08-09] MEDS ORDERED: CYCLOBENZAPRINE 10 MG TAB ONE (11:49)
[2021-08-09] MEDS ORDERED: HYDROCODONE/APAP 10/325 TAB ONE (11:49)
[2021-08-09 11:55] LABS: Urine Blood 1+ (Negative); Urine Glucose Negative (Negative); Urine Protein Negative (Negative)
[2021-08-09] MEDS ORDERED: levoFLOXacin 500 MG TAB ONE (12:10)
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
[2021-08-09 12:53] VITALS: O2SAT 100
[2021-08-09 13:05] VITALS: TEMP 98
[2021-08-09 13:07] VITALS: BP 108/64
== END 2021-08-09 12:43 | disposition home or self-care (01) ==
LOC: ER 10:55
DX: S40.022A Contusion of left upper arm, initial encounter (principal); S80.12XA Contusion of left lower leg, initial encounter; N39.0 Urinary tract infection, site not specified; I10 Essential (primary) hypertension; W17.89XA Other fall from one level to another, initial encounter; Z88.6 Allergy status to analgesic agent
CPT/HCPCS: 81003; 81025; 87077; 87086; 87088; 87186; 99283

== ENCOUNTER 2021-09-08 08:46 | Emergency (ER) | payer OTHER ==
--- OUTSIDE RECORDS SUMMARY | 2021-09-08 08:49 | XMS REPORT | Continuity of Care Document ---
:1970 Author Organization [facility] t Address [address] [place] [address] Care Team Providers Name Role Phone Michele Primary Care Physician Doctor Unassigned, Name Attending [...] Date Clinician naproxen DA Active SV 2017-0 [facility] 2- [place] 00:00: [facility] Naproxen Propensi Active Unknown - Uni vers ty to See comments 03-11 ity of adverse 00:00: [place] reaction 00 Medical s to Branch drug Social History Social Habit Start Date Stop Date Quantity Comments Source History SDOH University o f Alcohol Std Drinks [place] [facility] History [facility] University o f Alcohol Binge [place] [facility] Branch History SDIL University o f Alcohol Frequency [facility] edical Branch Alcohol intake 2019-06-18 2019-06-18 Current drinker Unive rsity of 00:00:00 00:00:00 of alcohol [place] [facility] (finding) Branch Alcohol Comment 2016-12-14 2016-12-14 infrequent - Univers ity of 00:00:00 00:00:00 family parties, [place] [facility] ical wine, 12 oz/time Branch Cigarettes smoked 2016-12-14 2016-12-14 Univers ity of current (pack per 00:00:00 00:00:00 [place] ) - Reported Branch Cigarette 2016-12-14 2016-12-14 University of pack-years 00:00:00 00:00:00 [facility] Tobacco use and 2016-12-14 2016-12-14 Never used Universit y of exposure 00:00:00 00:00:00 [facility] History of tobacco 2001-12-14 Cigarette Smoker University of use 00:00:00 [facility] Sex Assigned At [birth year] Universit y of 00:00:00 00:00:00 [facility] Smoking Status Start Date Stop Date Source Former smoker 2016-12-14 00:00:00 2016-12-14 00:00:00 Universi ty of [facility] Medications Ordered Filled Start Stop Current Ordering Indication Dosage Frequency Signature Comments Components Source Medication Medication Date Date Medication? Clinician (SIG) Name Name lurasidone Yes Take by Uni vers HCl (LATUDA 7-17 mouth. ity of ORAL) 10:16: [place] 57 Medical Branch betamethaso 0 Yes SMILEY EXT AA Univers ne valerate 5-24 BID ity of 0.1 % 00:00: [place] ointment 00 Medical Branch triamterene Yes TK 1 C PO U nivers -hydrochlor 5-24 QAM ity of othiazide 00:00: [place] 37.5-25 mg 00 Medical per capsule Branch DEXILANT 60 Yes TK 1 C PO U nivers mg capsule 9-28 QD ity of 00:00: [place] 00 Medical Branch proMETHazin Yes TK 1 [...] tablet 00 Medical Branch betamethaso 2013-0 Yes [id number] Apply to [facility] ne 2- area(s) ity of dipropionat 00:00: two (2) José Miguel as e 00 times Medical (DIPROLENE) daily. Branch 0.05 % cream Immunizations Ordered Filled Immunization Date Status Comments [facility] e Immunization Name Name Influenza Virus 2007-07-02 Completed Universit y of Vaccine 00:00:00 [facility] Procedures Procedure Date / Time Performing Clinician Source Performed AUTHORIZATION FOR 2021-06-09 05:01:00 Doctor Unassigned, No [facility] RELEASE OF PHI Name Medical Branch Encounters Start End Encounter Admission Attending Care Care Encounter Source Date/Time Date/Time Type Type Clinicians Facility Department ID 2021-06-09 2021-06-09 Orders Doctor MARISCAL [id number] [facility] 00:00:00 00:00:00 Only Unassigned, BETH [id number] ity of [facility] [id number] José Miguel as [id number] [facility] 009 Branch Results This patient has no known results.
--- NOTE | 2021-09-08 09:19 | ER ---
Nurse's Notes [facility] Name: Nancie Ordonez Age: 50 yrs Sex: Female : 1970 Arrival Date: 09/08/2021 Time: 08:48 Bed Waiting Private MD: Diagnosis: Low back pain Presentation: 09/08 08:55 Chief complaint: Patient states: yesterday sttepped out of a van and slipped and fell vg1 on back onto the vehicle. States Right side of body pain. Coronavirus screen: Vaccine status: Patient reports receiving the 2nd dose of the covid vaccine. Client denies travel out of the [place] in the last 14 days. Ebola Screen: Patient negative for fever greater than or equal to 101.5 degrees Fahrenheit, and additional compatible Ebola Virus Disease symptoms. Initial Sepsis Screen: Does the patient meet any 2 criteria? No. Patient's initial sepsis screen is negative. Does the patient have a suspected source of infection? No. Patient's initial sepsis screen is negative. Risk Assessment: Do you want to hurt yourself or someone else? Patient reports no desire to harm self or others. Onset of symptoms was September 07, 2021. 08:55 Method Of Arrival: Ambulatory vg1 08:55 Acuity: DEEPALI 4 vg1 Triage Assessment: 09:00 General: Appears in no apparent distress. uncomfortable, Behavior is calm, cooperative. vg1 Pain: Complains of pain in back, right arm and right leg Pain currently is 10 out of 10 on a pain scale. Neuro: Level of Consciousness is awake, alert, obeys commands, Oriented to person, place, time, situation. Musculoskeletal: Circulation, motion, and sensation intact. 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 - Social history:: Smoking status: Patient denies any tobacco usage or history of. Patient/guardian denies using alcohol, street drugs, The patient lives with family. - Family history:: not pertinent. Screenin:37 Abuse screen: Denies threats or abuse. Nutritional screening: No deficits noted. vg1 Tuberculosis screening: No symptoms or risk factors identified. Fall Risk Fall in past 12 months (25 points). No secondary diagnosis (0 pts). No IV (0 pts). Ambulatory Aid- None/Bed Rest/Nurse Assist (0 pts). Gait- Normal/Bed Rest/Wheelchair (0 pts) Mental Status- Oriented to own ability (0 pts). Total Duke Fall Scale indicates No Risk (0-24 pts). Vital Signs: 08:55 BP 128 / 74; Pulse 101; Resp 17; Temp 98.3; Pulse Ox 99% ; Weight 82.55 kg; Height 5 vg1 ft. 3 in. (160.02 cm); Pain 10/10; 08:55 Body Mass Index 32.24 (82.55 kg, 160.02 cm) vg1 ED Course: 08:48 Patient arrived in ED. ds1 09:00 Triage completed. vg1 09:00 Arm band placed on. vg1 09:18 Tequila Choi MD is Attending Physician. ma2 09:37 Patient has correct armband on for positive identification. vg1 09:37 No provider procedures requiring assistance completed. Patient did not have IV access vg1 during this emergency room visit. Administered Medications: 09:35 Drug: Ketorolac 60 mg Route: IM; Site: right gluteus; vg1 09:36 Follow up: Response: Medication administered at discharge. vg1 Outcome: 09:18 Discharge ordered by . ma2 09:37 Discharged to home ambulatory. vg1 09:37 Condition: good 09:37 Discharge instructions given to patient, Instructed on discharge instructions, follow up and referral plans. medication usage, Demonstrated understanding of instructions, follow-up care, medications, Prescriptions given X 4. 09:38 Patient left the ED. vg1 Signatures: Sana Rodas ds1 Tequila Choi MD MD ma2 Garcia, Victoria, RN RN vg1
--- NOTE | 2021-09-08 09:19 | EDPHYS ---
Physician Documentation [facility] Name: Nancie Ordonez Age: 50 yrs Sex: Female : 1970 Arrival Date: 09/08/2021 Time: 08:48 Bed Waiting Private MD: ED Physician Tequila Choi HPI: 09/08 09:15 This 50 yrs old Black Female presents to ER via Ambulatory with complaints of Back Pain.ma2 09:15 The patient presents with pain that is acute. The symptoms are located in the low back. ma2 Associated signs and symptoms: Pertinent negatives: constipation, hematuria, numbness, weakness. Severity of symptoms: At their worst the symptoms were mild, in the emergency department the symptoms are unchanged. The patient has not experienced similar symptoms in the past. Slipped while getting of her van, and fell on the floor sitting, here with a lower back pain, no focal weakness, no urinary incontinence, saddle anesthesia or midline back pain, pain is mostly on the left lower back, patient stated she also had a chronic back pain. . 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 - Social history:: Smoking status: Patient denies any tobacco usage or history of. Patient/guardian denies using alcohol, street drugs, The patient lives with family. - Family history:: not pertinent. ROS: 09:15 Constitutional: Negative for fever, chills, and weight loss, Eyes: Negative for injury, ma2 pain, redness, and discharge. 09:15 All other systems are negative. Exam: 09:15 Constitutional: This is a well developed, well nourished patient who is awake, alert, ma2 and in no acute distress. Head/Face: Normocephalic, atraumatic. Eyes: Pupils equal round and reactive to light, extra-ocular motions intact. Lids and lashes normal. Conjunctiva and sclera are non-icteric and not injected. Cornea within normal limits. Periorbital areas with no swelling, redness, or edema. ENT: Nares patent. No nasal discharge, no septal abnormalities noted. Tympanic membranes are normal and external auditory canals are clear. Oropharynx with no redness, swelling, or masses, exudates, or evidence of obstruction, uvula midline. Mucous membranes moist. Neck: Trachea midline, no thyromegaly or masses palpated, and no cervical lymphadenopathy. Supple, full range of motion without nuchal rigidity, or vertebral point tenderness. No Meningismus. Chest/axilla: Normal chest wall appearance and motion. Nontender with no deformity. No lesions are appreciated. Cardiovascular: Regular rate and rhythm with a normal S1 and S2. No gallops, murmurs, or rubs. Normal PMI, no JVD. No pulse deficits. Respiratory: Lungs have equal breath sounds bilaterally, clear to auscultation and percussion. No rales, rhonchi or wheezes noted. No increased work of breathing, no retractions or nasal flaring. Abdomen/GI: Soft, non-tender, with normal bowel sounds. No distension or tympany. No guarding or rebound. No evidence of tenderness throughout. Back: No spinal tenderness. No costovertebral tenderness. Full range of motion. Skin: Warm, dry with normal turgor. Normal color with no rashes, no lesions, and no evidence of cellulitis. MS/ Extremity: Pulses equal, no cyanosis. Neurovascular intact. Full, normal range of motion. Neuro: Awake and alert, GCS 15, oriented to person, place, time, and situation. Cranial nerves II-XII grossly intact. Motor strength 5/5 in all extremities. Sensory grossly intact. Cerebellar exam normal. Normal gait. Psych: Awake, alert, with orientation to person, place and time. Behavior, mood, and affect are within normal limits. Vital Signs: 08:55 BP 128 / 74; Pulse 101; Resp 17; Temp 98.3; Pulse Ox 99% ; Weight 82.55 kg; Height 5 vg1 ft. 3 in. (160.02 cm); Pain 10/10; 08:55 Body Mass Index 32.24 (82.55 kg, 160.02 cm) vg1 MDM: 09:15 Differential diagnosis: arthritis, Fracture spinal injury, sprain. Data reviewed: vital ma2 signs, nurses notes, EMS record. Counseling: I had a detailed discussion with the patient and/or guardian regarding: the historical points, exam findings, and any diagnostic results supporting the discharge/admit diagnosis, the presence of at least one elevated blood pressure reading (>120/80) during this emergency department visit, the need for outpatient follow up. Response to treatment: the patient's symptoms have markedly improved after treatment. ED course: Lower back pain with recent mechanical fall, patient needs x-ray of lower back, rule out compression fracture, no cord compression on exam, no red flags for lower back pain. I recommended low back x-ray, lumbar spine. However patient declined recommendation. She said that she had x-rays of lower back recently. I explained that given the event of trauma. We need to repeat x-ray to rule out fracture. Patient understands risk. She does not want any x-rays at this time. She will follow up with PCP for MRI for chronic right-sided neck pain, and lower back pain. I gave return precaution.. 09:18 Patient medically screened. ma2 Administered Medications: 09:35 Drug: Ketorolac 60 mg Route: IM; Site: right gluteus; vg1 09:36 Follow up: Response: Medication administered at discharge. vg1 Disposition Summary: 09/08/21 09:18 Discharge Ordered Location: Home ma2 Condition: Stable ma2 Diagnosis - Low back pain ma2 Followup: ma2 - With: Private Physician - When: Tomorrow - Reason: Recheck today's complaints Discharge Instructions: - Discharge Summary Sheet ma2 - Acute Back Pain, Adult ma2 Forms: - Medication Reconciliation Form ma2 - Thank You Letter ma2 - Antibiotic Education ma2 - Prescription Opioid Use ma2 Prescriptions: - Neurontin 100 mg Oral capsule - take 1 capsule by ORAL route 3 times per day; 90 capsule; Refills: 0, Product ma2 Selection Permitted - Cyclobenzaprine 10 mg Oral Tablet - take 1 tablet by ORAL route every 8 hours As needed; 30 tablet; Refills: 0, ma2 Product Selection Permitted - Diclofenac Sodium 75 mg Oral Tablet Sustained Release - take 1 tablet by ORAL route 2 times per day; 30 tablet; Refills: 0, Product ma2 Selection Permitted - Medrol (Royal) 4 mg Oral Tablets, Dose Pack - take 1 tablet by ORAL route as directed - follow package instructions; 1 ma2 packet; Refills: 0, Product Selection Permitted Signatures: Tequila Choi MD MD ma2 Eden Lujan RN RN vg1
[2021-09-08] MEDS ORDERED: KETOROLAC 30 MG/ML INJ ONE (09:32)
[2021-09-08 09:55] VITALS: BP 128/74; TEMP 98.3; O2SAT 99
== END 2021-09-08 09:38 | disposition home or self-care (01) ==
LOC: ER 08:46
DX: M54.50 Low back pain, unspecified (principal); I10 Essential (primary) hypertension; Z88.6 Allergy status to analgesic agent
CPT/HCPCS: 96372; 99283

== ENCOUNTER 2021-09-09 09:01 | Emergency (ER) | payer OTHER ==
--- NOTE | 2021-09-09 11:22 | RAD REPORT ---
EXAM DESCRIPTION: CT - C Spine Wo Con - 09/09/2021 10:54 am CLINICAL HISTORY: Neck pain, bilateral upper extremity radiculopathy, prior cervical fusion COMPARISON: None. TECHNIQUE: Axial 2 mm thick images of the cervical spine were obtained with sagittal and coronal rec onstruction images generated and reviewed. All CT scans are performed using dose optimization technique as appropriate and may include automated exposure control or mA/KV adjustment according to patient size. FINDINGS: Cervical body height and alignment are normal. Hyper dense fusion material is present in t he C5-6 disc space. No fracture or acute bony abnormality. No paraspinal mass or hematoma. Central canal detail is inherently limited on CT imaging. Hypertrophy along the posterior wall C4 enc roaches on the central canal with resulting in borderline spinal stenosis at the mid C4 level of 10 m m. C3-4 endplate spurring and disc bulge changes are seen. Midline canal diameter is 9 mm. No significan t foraminal stenosis. C4-5 disc bulge changes are present in the midline. Midline canal diameter is 9 mm. Mild right bony f oraminal encroachment from uncovertebral joint hypertrophy. Fused C5-6 shows remnant endplate spurring with central canal 10-11 mm. Uncovertebral hypertrophy cau ses right bony foraminal encroachment. C6-7 disc space shows loss in height with posterior endplate spurring. No central canal stenosis. Unc overtebral hypertrophy on the left causes bony foraminal stenosis mild in severity. IMPRESSION: No fracture or acute cervical spine finding identifiable. Patient has cervical spondylosis changes at multiple levels. There is borderline to mild central spin al stenosis at C3-4 and C4-5. Multilevel bony foraminal stenosis from uncovertebral joint hypertrophy mild to moderate in severity.
--- NOTE | 2021-09-09 11:47 | EDPHYS ---
Physician Documentation [facility] Name: Nancie Ordonez Age: 50 yrs Sex: Female : 1970 Arrival Date: 09/09/2021 Time: 09:03 Bed 9 Private MD: ED Physician Tiana Galarza HPI: 09/09 10:58 This 50 yrs old Black Female presents to ER via Ambulatory with complaints of Neck Pain.jr8 10:58 Modifying factors: The patient symptoms are alleviated by nothing, the patient symptoms jr8 are aggravated by nothing. Severity of symptoms: At their worst the symptoms were moderate, in the emergency department the symptoms are unchanged. The patient has experienced similar episodes in the past, a few times. The patient has been recently seen by a physician:. Patient was seen in ED yesterday for low back pain. Stated that her neck is hurting today. Normally has neck problems with previous surgery. Stated that the pain often times radiates to right arm but now radiating to both arms. Denies trauma. Given prescriptions for back yesterday but feels that they are not helping . 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 - Social history:: Smoking status: Patient denies any tobacco usage or history of. ROS: 10:58 Eyes: Negative for injury, pain, redness, and discharge, ENT: Negative for injury, jr8 pain, and discharge, Cardiovascular: Negative for chest pain, palpitations, and edema, Respiratory: Negative for shortness of breath, cough, wheezing, and pleuritic chest pain, Abdomen/GI: Negative for abdominal pain, nausea, vomiting, diarrhea, and constipation, MS/Extremity: Negative for injury and deformity, Skin: Negative for injury, rash, and discoloration, Neuro: Negative for headache, weakness, numbness, tingling, and seizure. 10:58 Neck: Positive for pain with movement, pain at rest. 10:58 Back: Positive for pain at rest, pain with movement. Exam: 10:58 Constitutional: This is a well developed, well nourished patient who is awake, alert, jr8 and in no acute distress. Cardiovascular: Regular rate and rhythm with a normal S1 and S2. No gallops, murmurs, or rubs. Normal PMI, no JVD. No pulse deficits. Respiratory: Lungs have equal breath sounds bilaterally, clear to auscultation and percussion. No rales, rhonchi or wheezes noted. No increased work of breathing, no retractions or nasal flaring. Abdomen/GI: Soft, non-tender, with normal bowel sounds. No distension or tympany. No guarding or rebound. No evidence of tenderness throughout. Skin: Warm, dry with normal turgor. Normal color with no rashes, no lesions, and no evidence of cellulitis. MS/ Extremity: Pulses equal, no cyanosis. Neurovascular intact. Full, normal range of motion. Neuro: Awake and alert, GCS 15, oriented to person, place, time, and situation. Cranial nerves II-XII grossly intact. Motor strength 5/5 in all extremities. Sensory grossly intact. Cerebellar exam normal. Normal gait. 10:58 Neck: External neck: is normal, C-spine: appears grossly normal, no vertebral tenderness, no crepitus, ROM/movement: pain, that is mild, with any movement, limited range of motion, is not appreciated, Meningeal signs: are not present, Kernig's sign is negative, Brudzinski's sign is negative, nuchal rigidity, is not appreciated, Lymph nodes: no appreciated lymphadenopathy. 10:58 Back: pain, that is mild, of the left low back and right low back, ROM is painful, with all movement, normal spinal alignment noted. Vital Signs: 09:16 BP 143 / 93; Pulse 102; Resp 19; Temp 97.9(TE); Pulse Ox 100% on R/A; Weight 87.09 kg tw2 (R); Height 5 ft. 3 in. (160.02 cm); Pain 10/10; 09:16 Body Mass Index 34.01 (87.09 kg, 160.02 cm) tw2 MDM: 09:53 Patient medically screened. jr8 11:36 Data reviewed: vital signs, nurses notes, radiologic studies, CT scan. Data jr8 interpreted: Pulse oximetry: on room air is 100 %. Interpretation: normal. 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 ED course: Discussed with patient that she has mild stenosis present. Nothing acutely emergent. Patient was started on several medications that she needs to continue. Patient has no acute neurologic deficits on physical exam. No fever present and hemodynamically stable. Explained to her that she needs to f/u with ortho spine or pain management. 09/09 10:44 Order name: CT C Spine; Complete Time: 11:25 jr8 Administered Medications: 11:59 Drug: morphine 2 mg Route: IM; Site: left deltoid; jh5 Disposition Summary: 09/09/21 11:46 Discharge Ordered Location: Home jr8 Problem: new jr8 Symptoms: have improved jr8 Condition: Stable jr8 Diagnosis - Spinal stenosis, cervical region jr8 Followup: jr8 - With: Private Physician - When: 2 - 3 days - Reason: Recheck today's complaints, Continuance of care, Re-evaluation by your physician Discharge Instructions: - Discharge Summary Sheet jr8 - Spinal Stenosis jr8 Forms: - Medication Reconciliation Form jr8 - Thank You Letter jr8 - Antibiotic Education jr8 - Prescription Opioid Use jr8 Addendum: 09/11/2021 16:20 Co-signature as Attending Physician, Tiana Galarza MD I agree with the assessment and s p3 plan of care. Signatures: Dispatcher [employer] EDMS Jarett Fontana PA PA jr8 Jes Holt RN RN tw2 Tiana Galarza MD MD sp3 Hannah Ramires RN RN jh5
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
[2021-09-09] MEDS ORDERED: MORPHINE 2 MG/ML SYR ONE (11:59)
[2021-09-09 12:30] VITALS: BP 143/93; TEMP 97.9; O2SAT 100
== END 2021-09-09 12:12 | disposition home or self-care (01) ==
LOC: ER 09:01
DX: M48.02 Spinal stenosis, cervical region (principal); I10 Essential (primary) hypertension
CPT/HCPCS: 72125; 96372; 99283; J2270

== ENCOUNTER 2021-09-10 13:20 | Emergency (ER) | payer OTHER ==
--- OUTSIDE RECORDS SUMMARY | 2021-09-10 13:33 | XMS REPORT | Continuity of Care Document ---
:1970 Author Organization [facility] t Address [address] [place] [address] Care Team Providers Name Role Phone Michele [...] naproxen DA Active SV 2017-0 [facility] 2- [place] 00:00: [facility] Naproxen Propensi Active Unknown - Uni vers ty to See comments 03-11 ity of adverse 00:00: [place] reaction 00 Medical s to Branch drug Social History Social Habit Start Date Stop Date Quantity Comments Source History SDOH University o f Alcohol Std Drinks [place] [facility] History [facility] University o f Alcohol Binge [place] [facility] al Branch History SDHI University o f Alcohol Frequency [facility] edical Branch Alcohol intake 2019-06-18 2019-06-18 Current drinker Unive rsity of 00:00:00 00:00:00 of alcohol [place] Medical (finding) Branch Alcohol Comment 2016-12-14 2016-12-14 infrequent - Univers ity of 00:00:00 00:00:00 family parties, [place] Med ical wine, 12 oz/time Branch Cigarettes smoked 2016-12-14 2016-12-14 Univers ity of current (pack per 00:00:00 00:00:00 [place] ) - Reported Branch Cigarette 2016-12-14 2016-12-14 University of pack-years 00:00:00 00:00:00 [facility] Tobacco use and 2016-12-14 2016-12-14 Never used Universit y of exposure 00:00:00 00:00:00 [facility] History of tobacco 2001-12-14 Cigarette Smoker University of use 00:00:00 [facility] Sex Assigned At [birth year] Universit y of 00:00:00 00:00:00 [facility] Smoking Status Start Date Stop Date Source Former smoker 2016-12-14 00:00:00 2016-12-14 00:00:00 Universi ty of [facility] Medications Ordered Filled Start Stop Current Ordering [...] mg capsule 9-28 QD ity of 00:00: [place] 00 Medical Branch proMETHazin Yes TK 1 [...] tablet 00 Medical Branch betamethaso 2013-0 Yes [id number] Apply to [facility] [place] [facility] ne 2- area(s) ity of dipropionat 00:00: two (2) José Miguel as e 00 times Medical (DIPROLENE) daily. Branch 0.05 % cream Immunizations Ordered Filled Immunization Date Status Comments [facility] e Immunization Name Name Influenza Virus 2007-07-02 Completed Universit y of Vaccine 00:00:00 [facility] Procedures Procedure Date / Time Performing Clinician Source Performed AUTHORIZATION FOR 2021-06-09 05:01:00 Doctor Unassigned, No [facility] RELEASE OF PHI Name Medical Branch Encounters Start End Encounter Admission Attending Care Care Encounter Source Date/Time Date/Time Type Type Clinicians Facility Department ID 2021-06-09 2021-06-09 Orders Doctor MARISCAL [id number] [facility] [place] [facility] 00:00:00 00:00:00 Only Unassigned, BETH [id number] ity of [facility] [id number] José Miguel as [phone] [facility] 009 Branch Results This patient has no known results.
--- NOTE | 2021-09-10 13:59 | EDPHYS ---
Physician Documentation [facility] Name: Nancie Ordonez Age: 50 yrs Sex: Female : 1970 Arrival Date: 09/10/2021 Time: 13:22 Bed Waiting Private MD: ED Physician Tequila Choi HPI: 09/10 13:55 This 50 yrs old Black Female presents to ER via Ambulatory with complaints of Neck ma2 Pain, >24Hrs Old, Shoulder Pain, Back Pain. 13:55 Associated signs and symptoms: Pertinent negatives: fever, nausea, tingling, vomiting. ma2 Severity of symptoms: At their worst the symptoms were mild, in the emergency department the symptoms are unchanged. The patient has experienced similar episodes in the past. Patient has chronic neck pain, had prior surgeries, I saw her 2 days ago for same chronic neck pain, however she was out of her hydrocodone, she also had back pain 2 days ago, she was evaluated by me, no emergency condition was found she was given pain relief, and discharge. I recommend that she follow-up with PCP for MRI neck for further evaluation, however if she did not have a chance to see PCP, and she is here with the same pain again because she could not get her PCP to see her or prescribe [place], which she is out of. Today there is no new symptoms other than same chronic pain. No weakness fever, no new fall, no numbness or change in urinary symptoms such as incontinence or retention.. COMBINER: 13:56 LMP N/A - Depo-provera jg9 Historical: - Allergies: 13:54 Ibuprofen; jg9 13:54 Naproxen; jg9 - Home Meds: 13:54 amlodipine 5 mg tab 1 tab once daily [Active]; jg9 - PMHx: 13:54 Arthritis; GERD; Gout; Hypertension; jg9 - PSHx: 13:54 Right arm injury; jg9 - Immunization history:: Client reports receiving the 2nd dose of the Covid vaccine, Client reports receiving the 1st dose of the Covid vaccine, Pneumococcal vaccine status is unknown, Flu vaccine is up to date. - Social history:: Patient/guardian denies using alcohol, street drugs, The patient lives with family, Smoking status: . - Family history:: not pertinent. ROS: 13:55 Constitutional: Negative for fever, chills, and weight loss. ma2 13:55 All other systems are negative. Exam: 13:55 Constitutional: This is a well developed, well nourished patient who is awake, alert, ma2 and in no acute distress. Head/Face: Normocephalic, atraumatic. Eyes: Pupils equal round and reactive to light, extra-ocular motions intact. Lids and lashes normal. Conjunctiva and sclera are non-icteric and not injected. Cornea within normal limits. Periorbital areas with no swelling, redness, or edema. ENT: Nares patent. No nasal discharge, no septal abnormalities noted. Tympanic membranes are normal and external auditory canals are clear. Oropharynx with no redness, swelling, or masses, exudates, or evidence of obstruction, uvula midline. Mucous membranes moist. Neck: Trachea midline, no thyromegaly or masses palpated, and no cervical lymphadenopathy. Supple, full range of motion without nuchal rigidity, or vertebral point tenderness. No Meningismus. Chest/axilla: Normal chest wall appearance and motion. Nontender with no deformity. No lesions are appreciated. Cardiovascular: Regular rate and rhythm with a normal S1 and S2. No gallops, murmurs, or rubs. Normal PMI, no JVD. No pulse deficits. Respiratory: Lungs have equal breath sounds bilaterally, clear to auscultation and percussion. No rales, rhonchi or wheezes noted. No increased work of breathing, no retractions or nasal flaring. Abdomen/GI: Soft, non-tender, with normal bowel sounds. No distension or tympany. No guarding or rebound. No evidence of tenderness throughout. Skin: Warm, dry with normal turgor. Normal color with no rashes, no lesions, and no evidence of cellulitis. MS/ Extremity: Pulses equal, no cyanosis. Neurovascular intact. Full, normal range of motion. Neuro: Awake and alert, GCS 15, oriented to person, place, time, and situation. Cranial nerves II-XII grossly intact. Motor strength 5/5 in all extremities. Sensory grossly intact. Cerebellar exam normal. Normal gait. Vital Signs: 13:51 BP 138 / 93; Pulse 94; Resp 17 S; Temp 97.3; Pulse Ox 100% on R/A; Weight 86.18 kg (R); jg9 Height 5 ft. 3 in. (160.02 cm) (R); 13:51 Body Mass Index 33.66 (86.18 kg, 160.02 cm) j9 MDM: 13:55 Differential diagnosis: arthritis, cervical strain, Neck Contusion Osteoarthritis. Data ma2 reviewed: vital signs, nurses notes. Counseling: I had a detailed discussion with the patient and/or guardian regarding: the historical points, exam findings, and any diagnostic results supporting the discharge/admit diagnosis, the presence of at least one elevated blood pressure reading (>120/80) during this emergency department visit, the need for outpatient follow up. Response to treatment: the patient's symptoms have markedly improved after treatment. ED course: Patient would like pain control, she does not want want any further testing or imaging as her pain is unchanged from prior. Differential diagnoses include disc prolapse, muscle sprain, strain, neck pain, unlikely epidural abscess or cord compression,. 13:58 Patient medically screened. ma2 Administered Medications: 14:23 Drug: Ketorolac 60 mg Route: IM; Site: right vastus lateralis; jg9 14:26 Follow up: Response: Medication administered at discharge. jg9 14:38 Follow up: Response: No adverse reaction j9 Disposition Summary: 09/10/21 13:58 Discharge Ordered Location: Home ma2 Condition: Stable ma2 Diagnosis - Sprain of ligaments of cervical spine, initial encounter ma2 Followup: ma2 - With: Private Physician - When: Tomorrow - Reason: Continuance of care Discharge Instructions: - Discharge Summary Sheet ma2 - Cervical Sprain, [id number]-[id number] ma2 Forms: - Medication Reconciliation Form ma2 - Thank You Letter ma2 - Antibiotic Education ma2 - Prescription Opioid Use ma2 Signatures: Luis Elena PA PA jmm Alzahri, Mohammad, MD MD ma2 Alisha Costa RN RN jg9
--- NOTE | 2021-09-10 13:59 | ER ---
Nurse's Notes [facility] Name: Nancie Ordonez Age: 50 yrs Sex: Female : 1970 Arrival Date: 09/10/2021 Time: 13:22 Bed Waiting Private MD: Diagnosis: Sprain of ligaments of cervical spine, initial encounter Presentation: 09/10 13:51 Chief complaint: Patient states: my right neck usually hurts from a surgery I had years jg9 ago but now the pain is moving to my left side and my mid to lower back is bothering me. Coronavirus screen: Vaccine status: Patient reports receiving the 2nd dose of the covid vaccine. Patient reports receiving the 1st dose of the Covid vaccine. Ebola Screen: Patient negative for fever greater than or equal to 101.5 degrees Fahrenheit, and additional compatible Ebola Virus Disease symptoms Patient denies exposure to infectious person. Patient denies travel to an Ebola-affected area in the 21 days before illness onset. Initial Sepsis Screen: Does the patient meet any 2 criteria? No. Patient's initial sepsis screen is negative. Does the patient have a suspected source of infection? No. Patient's initial sepsis screen is negative. Risk Assessment: Do you want to hurt yourself or someone else? Patient reports no desire to harm self or others. Onset of symptoms is unknown. 13:51 Method Of Arrival: Ambulatory 9 13:51 Acuity: DEEPALI 5 jg9 Triage Assessment: 13:53 General: Appears uncomfortable, Behavior is calm, cooperative. Pain: Complains of pain jg9 in back and neck Is chronic. 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 - Social history:: Patient/guardian denies using alcohol, street drugs, The patient lives with family, Smoking status: . - Family history:: not pertinent. Screenin:56 Abuse screen: Denies threats or abuse. Denies injuries from another. Nutritional jg9 screening: No deficits noted. Tuberculosis screening: No symptoms or risk factors identified. Fall Risk None identified. Vital Signs: 13:51 BP 138 / 93; Pulse 94; Resp 17 S; Temp 97.3; Pulse Ox 100% on R/A; Weight 86.18 kg (R); jg9 Height 5 ft. 3 in. (160.02 cm) (R); 13:51 Body Mass Index 33.66 (86.18 kg, 160.02 cm) jg9 ED Course: 13:22 Patient arrived in ED. as 13:53 Triage completed. jg9 13:55 Tequila Choi MD is Attending Physician. ma2 13:56 Arm band placed on left wrist. jg9 Administered Medications: 14:23 Drug: Ketorolac 60 mg Route: IM; Site: right vastus lateralis; jg9 14:26 Follow up: Response: Medication administered at discharge. jg9 14:38 Follow up: Response: No adverse reaction jg9 Outcome: 13:58 Discharge ordered by . ma2 14:48 Patient left the ED. jg9 Signatures: Sarah Garzon Mohammad, MD MD ma2 Alisha Costa RN RN jg9
[2021-09-10] MEDS ORDERED: KETOROLAC 30 MG/ML INJ ONE (14:22)
[2021-09-10 15:02] VITALS: BP 138/93; TEMP 97.3; O2SAT 100
== END 2021-09-10 14:48 | disposition home or self-care (01) ==
LOC: ER 13:20
DX: S13.4XXA Sprain of ligaments of cervical spine, initial encounter (principal); I10 Essential (primary) hypertension
CPT/HCPCS: 96372; 99282

== ENCOUNTER 2021-09-13 10:22 | Emergency (ER) | payer OTHER ==
--- OUTSIDE RECORDS SUMMARY | 2021-09-13 10:26 | XMS REPORT | Continuity of Care Document ---
:1970 Author Organization [facility] t Address [address] [place] [address] Care Team Providers Name Role Phone [facility] Primary Care Physician Doctor Unassigned, Name Attending Clinician Unavailable Payers Payer Name Policy Type Policy Number Effective Date Expiration Date S ource Problems Condition Condition Condition Status Onset Resolution Last Treating Co mments Source Name Details Category Date Date Treatment Clinician Date Depo-Prove Depo-Prove Disease Active U sofie castillo ra 4-13 ity of [place]oyd status 00 Me dical Branch Allergies, Adverse Reactions, Alerts Allergy Allergy Status Severity Reaction(s) Onset Inactive Treating Comm ents Source Name Type Date Date Clinician naproxen DA Active SV 2017- [facility] 10-30 [place] 00:00: Orthope 00 [facility] Naproxen Propensi Active Unknown - Uni vers ty to See comments 03-11 ity of adverse 00:00: [place] reaction 00 Medical s to Branch drug Social History Social Habit Start Date Stop Date Quantity Comments Source History SDAZ University o f Alcohol Std Drinks [place] [facility] Branch History [facility] University o f Alcohol Binge [place] Medic al Branch History [facility] University o f Alcohol Frequency [facility] edical Branch Alcohol intake 2019-06-18 2019-06-18 Current drinker Unive rsity of 00:00:00 00:00:00 of alcohol [place] Medical (finding) Branch Alcohol Comment 2016-12-14 2016-12-14 infrequent - Univers ity of 00:00:00 00:00:00 family parties, [place] Med ical wine, 12 oz/time Branch Cigarettes smoked 2016-12-14 2016-12-14 Univers ity of current (pack per 00:00:00 00:00:00 [facility] ) - Reported Branch Cigarette 2016-12-14 2016-12-14 University of pack-years 00:00:00 00:00:00 [facility] Tobacco use and 2016-12-14 2016-12-14 Never used Universit y of exposure 00:00:00 00:00:00 [facility] History of tobacco 2001-12-14 Cigarette Smoker University of use 00:00:00 [facility] Sex Assigned At [birth year] Universit y of 00:00:00 00:00:00 [facility] Smoking Status Start Date Stop Date Source Former smoker 2016-12-14 00:00:00 2016-12-14 00:00:00 Universi ty of [facility] Medications Ordered Filled Start Stop Current Ordering [...] tablet 00 Medical Branch betamethaso 2013-0 Yes [id number] Apply to [facility] ne 2-13 area(s) ity of dipropionat 00:00: two (2) José Miguel as e 00 times Medical (DIPROLENE) daily. Branch 0.05 % cream Immunizations Ordered Filled Immunization Date Status Comments Sour e Immunization Name Name Influenza Virus 2007-07-02 Completed Universit y of Vaccine 00:00:00 [facility] Procedures Procedure Date / Time Performing Clinician Source Performed AUTHORIZATION FOR 2021-06-09 05:01:00 Doctor Unassigned, No Univ [facility] RELEASE OF PHI Name Medical Branch Encounters Start End Encounter Admission Attending Care Care Encounter Source Date/Time Date/Time Type Type Clinicians Facility Department ID 2021-06-09 2021-06-09 Orders Doctor LOIDA [id number] [facility] 00:00:00 00:00:00 Only Unassigned, BETH [id number] ity of [place] [facility] [id number] José Miguel as [phone] [facility] 009 Branch Results This patient has no known results.
[2021-09-13] MEDS ORDERED: KETOROLAC 30 MG/ML INJ ONE (12:47)
--- NOTE | 2021-09-13 13:23 | ER ---
Nurse's Notes [facility] Name: Nancie Ordonez Age: 50 yrs Sex: Female : 1970 Arrival Date: 09/13/2021 Time: 10:26 Bed 10 Private MD: Diagnosis: Radiculopathy, cervical region Presentation: 09/13 11:05 Chief complaint:. ll1 11:05 Chief complaint: Patient states: Continued neck, back, and R shoulder pain since last 1 visit. Nothing helps. Coronavirus screen: Vaccine status: Patient reports receiving the 2nd dose of the covid vaccine. Client denies travel out of the [place] in the last 14 days. At this time, the client does not indicate any symptoms associated with coronavirus-19. Ebola Screen: Patient denies travel to an Ebola-affected area in the 21 days before illness onset. Initial Sepsis Screen: Does the patient meet any 2 criteria? No. Patient's initial sepsis screen is negative. Does the patient have a suspected source of infection? Yes: Bone or joint infection. Risk Assessment: Do you want to hurt yourself or someone else? Patient reports no desire to harm self or others. Onset of symptoms was September 03, 2021. 11:05 Method Of Arrival: Ambulatory 1 11:05 Acuity: DEEPALI 4 ll1 Historical: - Allergies: 11:05 Ibuprofen; ll1 11:05 Naproxen; ll1 - Home Meds: 13:14 amlodipine 5 mg tab 1 tab once daily [Active]; 5 - PMHx: 11:05 Arthritis; GERD; Gout; Hypertension; ll1 - PSHx: 11:05 Right arm injury; ll1 11:07 hernia repair; ll1 - Immunization history:: Client reports receiving the 2nd dose of the Covid vaccine. - Social history:: Smoking status: Patient denies any tobacco usage or history of. - Family history:: not pertinent. - Hospitalizations: : No recent hospitalization is reported. Screenin:57 Abuse screen: Denies threats or abuse. Nutritional screening: No deficits noted. ll3 Tuberculosis screening: No symptoms or risk factors identified. Fall Risk None identified. Assessment: 12:55 General: Appears in no apparent distress. uncomfortable, Behavior is calm, cooperative. ll3 Pain: Complains of pain in All over Pain currently is 10 out of 10 on a pain scale. Neuro: Level of Consciousness is awake, alert, obeys commands, Oriented to person, place, time, situation. Cardiovascular: Patient's skin is warm and dry. Respiratory: Respiratory effort is even, unlabored, Respiratory pattern is regular, symmetrical. Derm: Skin is pink, warm \T\ dry. 13:13 Reassessment: Jaime informed pt is eager to leave at this time; pt redirected to her [facility] room until paperwork is ready. Vital Signs: 11:05 BP 138 / 99; Pulse 100; Resp 17; Temp 97.4; Pulse Ox 100% ; Weight 68.95 kg; Height 5 ll1 ft. 3 in. (160.02 cm); Pain 10/10; 12:55 BP 130 / 85; Pulse 99; Resp 15; Pulse Ox 100% ; ll3 11:05 Body Mass Index 26.93 (68.95 kg, 160.02 cm) ll1 ED Course: 10:26 Patient arrived in ED. mr 11:05 Arm band placed on. ll1 11:07 Triage completed. ll1 12:27 Humphrey Sandoval MD is Attending Physician. rn 12:40 Marlene Olivas RN is Primary Nurse. ll3 12:57 Patient has correct armband on for positive identification. Bed in low position. Call 3 light in reach. Side rails up X 1. 13:14 No provider procedures requiring assistance completed. Patient did not have IV access [facility] during this emergency room visit. 13:22 Antolin Uribe MD is Referral Physician. rn Administered Medications: 12:54 Drug: Ketorolac 30 mg Route: IM; Site: right gluteus; ll3 13:23 Follow up: Response: No adverse reaction; Marked relief of symptoms 3 Outcome: 13:14 Discharged to home ambulatory. [facility] 13:14 Condition: good 13:22 Discharge ordered by . rn 13:28 Discharge instructions given to patient, Instructed on discharge instructions, follow 3 up and referral plans. Demonstrated understanding of instructions, follow-up care. 13:28 Patient left the ED. ll3 Signatures: Haylie Sexton mr Humphrey Sandoval MD MD rn Lewis, Lynsay, RN RN 1 Hannah Ramires RN RN [facility] Loubet, Lynsea, RN RN ll3 Corrections: (The following items were deleted from the chart) 13:28 13:14 Discharge instructions given to patient, Instructed on discharge instructions, ll3 follow up and referral plans. safety practices, Demonstrated understanding of instructions, follow-up care, medications, Prescriptions given X 1, jh5
--- NOTE | 2021-09-13 13:23 | EDPHYS ---
Physician Documentation [facility] Name: Nancie Ordonez Age: 50 yrs Sex: Female : 1970 Arrival Date: 09/13/2021 Time: 10:26 Bed 10 Private MD: ED Physician Humphrey Sandoval HPI: 09/13 13:16 This 50 yrs old Black Female presents to ER via Ambulatory with complaints of Neck rn pain, Arm Pain. 13:16 The patient or guardian complains of pain. The symptoms are located diffusely. Onset: rn The symptoms/episode began/occurred at an unknown time. Context: The problem was sustained at an unknown location, The neck injury/problem resulted from from unknown cause. Associated signs and symptoms: Pertinent negatives: fever, bladder incontinence, bowel incontinence, weakness. The pain radiates to the right arm and left arm. Modifying factors: The symptoms are alleviated by nothing. the symptoms are aggravated by movement. Severity of symptoms: At their worst the symptoms were moderate, in the emergency department the symptoms are unchanged. The patient has experienced similar episodes in the past, chronically. The patient has been recently seen at the [facility] Emergency Department. Patient reports still having neck pain that radiates to both arms. No weakness. Reports pain at work. Has not been referred to pain management. No new injury or symptoms. Seen recently and told to follow-up with pain management and to obtain an MRI.. Historical: - Allergies: 11:05 Ibuprofen; ll1 11:05 Naproxen; ll1 - Home Meds: 13:14 amlodipine 5 mg tab 1 tab once daily [Active]; jh5 - PMHx: 11:05 Arthritis; GERD; Gout; Hypertension; ll1 - PSHx: 11:05 Right arm injury; ll1 11:07 hernia repair; ll1 - Immunization history:: Client reports receiving the 2nd dose of the Covid vaccine. - Social history:: Smoking status: Patient denies any tobacco usage or history of. - Family history:: not pertinent. - Hospitalizations: : No recent hospitalization is reported. ROS: 13:16 Constitutional: Negative for fever, chills, and weight loss, Eyes: Negative for injury, rn pain, redness, and discharge, Neck: Negative for injury, positive for chronic neck pain Cardiovascular: Negative for chest pain, palpitations, and edema, Respiratory: Negative for shortness of breath, cough, wheezing, and pleuritic chest pain, Abdomen/GI: Negative for abdominal pain, nausea, vomiting, diarrhea, and constipation, Back: Negative for injury MS/Extremity: Negative for injury and deformity, Skin: Negative for injury, rash, and discoloration, Neuro: Negative for headache, weakness, and seizure. Exam: 13:16 Constitutional: This is a well developed, well nourished patient who is awake, alert, rn and in no acute distress. Head/Face: Normocephalic, atraumatic. Neck: No focal cervical tenderness, no tenderness to percussion no meningismus Cardiovascular: Regular rate and rhythm. No pulse deficits. Respiratory: No increased work of breathing, no retractions or nasal flaring. MS/ Extremity: Pulses equal, no cyanosis. Neurovascular intact. Full, normal range of motion. Equal circumference. Neuro: Awake and alert, GCS 15, oriented to person, place, time, and situation. Cranial nerves II-XII grossly intact. Motor strength 5/5 in all extremities. Sensory grossly intact. Cerebellar exam normal. Normal gait. Vital Signs: 11:05 BP 138 / 99; Pulse 100; Resp 17; Temp 97.4; Pulse Ox 100% ; Weight 68.95 kg; Height 5 ll1 ft. 3 in. (160.02 cm); Pain 10/10; 12:55 BP 130 / 85; Pulse 99; Resp 15; Pulse Ox 100% ; ll3 11:05 Body Mass Index 26.93 (68.95 kg, 160.02 cm) ll1 MDM: 12:27 Patient medically screened. rn 13:16 Differential diagnosis: Cervical Disc Herniation Cervical Discogenic Pain Cervical rn Facet Syndrome Cervical Raiculopathy Cervical Spondylosis cervical strain, Osteoarthritis torticollis. Data reviewed: vital signs, nurses notes, old medical records, and as a result, I will discharge patient. Counseling: I had a detailed discussion with the patient and/or guardian regarding: the historical points, exam findings, and any diagnostic results supporting the discharge/admit diagnosis, the need for outpatient follow up, to return to the emergency department if symptoms worsen or persist or if there are any questions or concerns that arise at home. Response to treatment: the patient's symptoms have markedly improved after treatment, and as a result, I will discharge patient. Special discussion: I discussed with the patient/guardian in detail that at this point there is no indication for admission to the hospital. It is understood, however, that if the symptoms persist or worsen the patient needs to return immediately for re-evaluation. Further emergent ED testing is not indicated at this point in time. I discussed with the patient/guardian in detail the need to arrange with the PCP or specialist further outpatient testing, MRI. Administered Medications: 12:54 Drug: Ketorolac 30 mg Route: IM; Site: right gluteus; ll3 13:23 Follow up: Response: No adverse reaction; Marked relief of symptoms ll3 Disposition Summary: 09/13/21 13:22 Discharge Ordered Location: Home rn Problem: chronic rn Symptoms: have improved rn Condition: Stable rn Diagnosis - Radiculopathy, cervical region rn Followup: rn - With: Antolin Uribe MD - When: As needed - Reason: Recheck today's complaints, Re-evaluation by your physician Discharge Instructions: - Discharge Summary Sheet rn - Cervical Radiculopathy rn - Neuropathic Pain rn Forms: - Medication Reconciliation Form rn - Thank You Letter rn - 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
== END 2021-09-13 13:28 | disposition home or self-care (01) ==
LOC: ER 10:22
DX: M54.12 Radiculopathy, cervical region (principal); I10 Essential (primary) hypertension; Z88.6 Allergy status to analgesic agent
CPT/HCPCS: 96372; 99283

== ENCOUNTER 2021-09-18 13:19 | Emergency (ER) | payer OTHER ==
--- OUTSIDE RECORDS SUMMARY | 2021-09-18 13:23 | XMS REPORT | Continuity of Care Document ---
:1970 Author Organization [facility] t Address [address] [place] [address] Care Team Providers Name Role Phone Michele Primary Care Physician Doctor Unassigned, Name Attending Clinician Unavailable Payers Payer Name Policy Type Policy Number Effective Date Expiration Date S ource Problems Condition Condition Condition Status Onset Resolution Last Treating Co mments Source Name Details Category Date Date Treatment Clinician Date Depo-Prove Depo-Prove Disease Active 0 U nivers ra ra 4-13 ity [place]oyd status 00 Me dical Branch Allergies, Adverse Reactions, Alerts Allergy Allergy Status Severity Reaction(s) Onset Inactive Treating Comm ents Source Name Type Date Date Clinician naproxen DA Active SV 2017-0 [facility] 2- [place] 00:00: [facility] Naproxen Propensi Active Unknown - Uni vers ty to See comments 03-11 ity of adverse 00:00: [place] reaction 00 Medical s to Branch drug Social History Social Habit Start Date Stop Date Quantity Comments Source History SDOH University o f Alcohol Std Drinks [place] [facility] History [facility] University o f Alcohol Binge [place] Medic al Branch History SDKY University o f Alcohol Frequency [facility] edical Branch Alcohol intake 2019-06-18 2019-06-18 Current drinker Unive rsity of 00:00:00 00:00:00 of alcohol [place] [facility] (finding) Branch Alcohol Comment 2016-12-14 2016-12-14 infrequent - Univers ity of 00:00:00 00:00:00 family parties, [place] Med ical wine, 12 oz/time Branch Cigarettes smoked 2016-12-14 2016-12-14 Univers ity of current (pack per 00:00:00 00:00:00 [place] ) - Reported Branch Cigarette 2016-12-14 2016-12-14 University of pack-years 00:00:00 00:00:00 [facility] Tobacco use and 2016-12-14 2016-12-14 Never used Universit y of exposure 00:00:00 00:00:00 [facility] History of tobacco 2001-12-14 Cigarette Smoker University of use 00:00:00 [facility] Sex Assigned At [birth year] Universit y of 00:00:00 00:00:00 [facility] Smoking Status Start Date Stop Date Source Former smoker 2016-12-14 00:00:00 2016-12-14 00:00:00 Universi ty of [facility] Medications Ordered Filled Start Stop Current Ordering [...] mg capsule 9-28 QD ity of 00:00: [place] 00 Medical Branch proMETHazin Yes TK 1 [...] tablet 00 Medical Branch betamethaso 2013-0 Yes [id number] Apply to [facility] ne 2- area(s) ity of dipropionat 00:00: two (2) José Miguel as e 00 times Medical (DIPROLENE) daily. Branch 0.05 % cream Immunizations Ordered Filled Immunization Date Status Comments [facility] e Immunization Name Name Influenza Virus 2007-07-02 Completed Universit y of Vaccine 00:00:00 [facility] Procedures Procedure Date / Time Performing Clinician Source Performed AUTHORIZATION FOR 2021-06-09 05:01:00 Doctor Unassigned, No [facility] RELEASE OF PHI Name Medical Branch Encounters Start End Encounter Admission Attending Care Care Encounter Source Date/Time Date/Time Type Type Clinicians Facility Department ID 2021-06-09 2021-06-09 Orders Doctor MARISCAL [id number] [facility] 00:00:00 00:00:00 Only Unassigned, BETH [id number] ity of [place] [facility] [id number] José Miguel as [id number] [facility] 009 Branch Results This patient has no known results.
[2021-09-18] MEDS ORDERED: CYCLOBENZAPRINE 10 MG TAB ONE (14:44)
[2021-09-18] MEDS ORDERED: KETOROLAC 30 MG/ML INJ ONE (14:44)
[2021-09-18] MEDS ORDERED: LIDOCAINE 4% PATCH ONE (14:45)
[2021-09-18] MEDS ORDERED: ONDANSETRON 4 MG (ODT) TAB ONE (15:58)
[2021-09-18] MEDS ORDERED: MORPHINE 4 MG/ML SYR ONE (15:58)
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
--- NOTE | 2021-09-18 15:58 | ER ---
Nurse's Notes [facility] Name: Nancie Ordonez Age: 50 yrs Sex: Female : 1970 Arrival Date: 09/18/2021 Time: 13:44 Bed 17 Private MD: Diagnosis: Low back pain;Chronic pain, not elsewhere classified Presentation: 09/18 13:47 Chief complaint: Patient states: I dont know why my back hurts but it been hurting for [facility] the longest. Coronavirus screen: Vaccine status: Patient reports receiving the 2nd dose of the covid vaccine. Client denies travel out of the [place] in the last 14 days. At this time, the client does not indicate any symptoms associated with coronavirus-19. Ebola Screen: Patient negative for fever greater than or equal to 101.5 degrees Fahrenheit, and additional compatible Ebola Virus Disease symptoms Patient denies exposure to infectious person. Patient denies travel to an Ebola-affected area in the 21 days before illness onset. Initial Sepsis Screen: Does the patient meet any 2 criteria? No. Patient's initial sepsis screen is negative. Does the patient have a suspected source of infection? No. Patient's initial sepsis screen is negative. Risk Assessment: Do you want to hurt yourself or someone else? Patient reports no desire to harm self or others. Onset of symptoms. 13:47 Method Of Arrival: Ambulatory [facility] 13:47 Acuity: DEEPALI 4 [facility] Triage Assessment: 13:50 General: Appears in no apparent distress. comfortable, well groomed, well developed, 5 well nourished, Behavior is calm, cooperative, appropriate for age. Pain: Complains of pain in back. Musculoskeletal: Circulation, motion, and sensation intact. Capillary refill < 3 seconds, Range of motion: intact in all extremities. 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 - Social history:: Smoking status: Patient denies any tobacco usage or history of. Screenin:51 Abuse screen: Denies threats or abuse. Denies injuries from another. Nutritional [facility] screening: No deficits noted. Tuberculosis screening: No symptoms or risk factors identified. Fall Risk None identified. Assessment: 13:55 Reassessment: Patient appears in no apparent distress at this time. Patient is alert, tw2 oriented x 3, equal unlabored respirations, skin warm/dry/pink. 15:44 Reassessment: Patient appears in no apparent distress at this time. Patient and/or tw2 family updated on plan of care and expected duration. Pain level reassessed. Patient states feeling better. Patient states symptoms have improved. 16:57 Reassessment: Patient appears in no apparent distress at this time. Patient and/or tw2 family updated on plan of care and expected duration. Pain level reassessed. Patient is alert, oriented x 3, equal unlabored respirations, skin warm/dry/pink. Patient states feeling better. Patient states symptoms have improved. Vital Signs: 13:47 BP 120 / 77; Pulse 100; Resp 18; Temp 98.2; Pulse Ox 100% ; Weight 86.64 kg; Height 5 [facility] ft. 3 in. (160.02 cm); Pain 10/10; 15:44 BP 120 / 90; Pulse 91; Resp 17; Pulse Ox 100% on R/A; Pain 6/10; tw2 13:47 Body Mass Index 33.83 (86.64 kg, 160.02 cm) [facility] ED Course: 13:44 Patient arrived in ED. mr 13:50 Triage completed. [facility] 13:50 Arm band placed on left wrist. [facility] 13:51 Patient has correct armband on for positive identification. Bed in low position. Call [facility] light in reach. Side rails up X 1. 13:51 No provider procedures requiring assistance completed. 5 13:53 Pavel Donahue NP is PHCP. pm1 13:53 Shai Guzman MD is Attending Physician. pm1 13:54 Jes Holt RN is Primary Nurse. tw2 16:58 Patient did not have IV access during this emergency room visit. tw2 Administered Medications: 14:52 Drug: Lidoderm Patch 5 % (700 mg/patch) 1 patches Route: Topical; Site: affected area; tw2 14:55 Drug: Ketorolac 60 mg {Note: by states "not allergic to toradol, i had it before".} tw2 Route: IM; Site: right gluteus; 15:55 Follow up: Response: No adverse reaction; Pain is decreased tw2 14:57 Drug: Flexeril (cyclobenzaprine) 10 mg Route: PO; tw2 15:55 Follow up: Response: No adverse reaction tw2 15:59 Drug: Ondansetron 4 mg Route: PO; tw2 16:57 Follow up: Response: No adverse reaction tw2 16:00 Drug: morphine 4 mg Route: IM; Site: left deltoid; tw2 16:00 Follow up: RASS 0 tw2 16:57 Follow up: Response: No adverse reaction; Pain is decreased; RASS: Alert and Calm (0) tw2 Intake: Outcome: 15:57 Discharge ordered by MD. pm1 16:58 Discharged to home ambulatory, with significant other. tw2 16:58 Condition: stable 16:58 Discharge instructions given to patient, significant other, Instructed on discharge instructions, follow up and referral plans. Demonstrated understanding of instructions, follow-up care. 16:58 Patient left the ED. tw2 Signatures: Haylie Sexton mr DonahuePavel, ROOF PAINTER ROOF PAINTER pm1 Jes Holt RN RN tw2 Hannah Ramires RN RN jh5
[2021-09-18 17:03] VITALS: TEMP 98.2; O2SAT 100
[2021-09-18 17:04] VITALS: BP 120/90
== END 2021-09-18 16:58 | disposition home or self-care (01) ==
LOC: ER 13:19
DX: M54.50 Low back pain, unspecified (principal); G89.29 Other chronic pain; I10 Essential (primary) hypertension
CPT/HCPCS: 96372; 99283

== ENCOUNTER 2021-10-06 14:17 | Emergency (ER) | payer OTHER ==
--- OUTSIDE RECORDS SUMMARY | 2021-10-06 14:20 | XMS REPORT | Continuity of Care Document ---
:1970 Author Organization [facility] t Address [facility] [place] [address] Care Team Providers Name Role Phone [place] [...] Date Date Clinician naproxen DA Active SV [facility] 2- [place] 00:00: [facility] 00 [facility] Naproxen Propensi Active Unknown - Uni vers ty to See comments 03-11 ity of adverse 00:00: [place] reaction 00 Medical s to Branch drug Social History Social Habit Start Date Stop Date Quantity Comments Source History SDCT University o f Alcohol Std Drinks [place] [facility] History [facility] University o f Alcohol Binge [place] [facility] Branch History [facility] University o f Alcohol Frequency [facility] edical Branch Alcohol intake 2019-06-18 2019-06-18 Current drinker Unive rsity of 00:00:00 00:00:00 of alcohol [place] [facility] (finding) Branch Alcohol Comment 2016-12-14 2016-12-14 infrequent - Univers ity of 00:00:00 00:00:00 family parties, [place] [facility] ical wine, 12 oz/time Branch Cigarettes smoked 2016-12-14 2016-12-14 Univers ity of current (pack per 00:00:00 00:00:00 [place] ) - Reported Branch Cigarette 2016-12-14 2016-12-14 University of pack-years 00:00:00 00:00:00 [facility] Tobacco use and 2016-12-14 2016-12-14 Never used Universit y of exposure 00:00:00 00:00:00 [facility] History of tobacco 2001-12-14 Cigarette Smoker University of use 00:00:00 [facility] Sex Assigned At [birth year] Universit y of 00:00:00 00:00:00 [facility] Smoking Status Start Date Stop Date Source Former smoker 2016-12-14 00:00:00 2016-12-14 00:00:[address] [facility] Medications Ordered Filled Start Stop Current Ordering Indication Dosage Frequency Signature Comments Components Source Medication Medication Date Date Medication? Clinician (SIG) Name Name lurasidone Yes Take by Uni vers HCl (LATUDA 7-17 mouth. ity of ORAL) 10:16: [place] 57 Medical Branch betamethaso 0 Yes SMILEY EXT AA Univers ne valerate 5-24 BID ity of 0.1 % 00:00: [place] ointment 00 Medical Branch triamterene Yes TK 1 C PO U nivers -hydrochlor 5-24 QAM ity of othiazide 00:00: [place] 37.5-25 mg 00 Medical per capsule Branch DEXILANT 60 Yes TK 1 C PO U nivers mg capsule 9-28 QD ity of 00:00: [place] 00 Medical Branch proMETHazin Yes TK 1 T PO U nivers e 25 mg 3-29 Q 12 H PRN ity of tablet 00:00: FOR 30 [place] 00 DAYS Medical Branch amLODIPine Yes TK 1 T PO Un guillermina 5 mg tablet 3-21 Q NIGHTLY ity of 00:00: [place] 00 Medical Branch HYDROcodone 2016-0 Yes 1{tbl} Take 1 Un guillermina -acetaminop 2-08 tablet by ity of hen 10-325 00:00: mouth. [place] mg tablet 00 Medical Branch betamethaso 2012-0 Yes [id number] Apply to [facility] 2-13 area(s) ity of dipropionat 00:00: two (2) José Miguel as e 00 times Medical (DIPROLENE) daily. Branch 0.05 % cream Immunizations Ordered Filled Immunization Date Status Comments [facility] e Immunization Name Name Influenza Virus 2007-07-02 Completed Universit y of Vaccine 00:00:00 [facility] Procedures Procedure Date / Time Performing Clinician Source Performed AUTHORIZATION FOR 2021-06-09 05:01:00 Doctor Unassigned, No [facility] RELEASE OF PHI Name Medical Branch Encounters Start End Encounter Admission Attending Care Care Encounter Source Date/Time Date/Time Type Type Clinicians Facility Department ID 2021-06-09 2021-06-09 Orders Doctor MARISCAL [id number] [facility] [place] [facility] 00:00:00 00:00:00 Only Unassigned, BETH [id number] ity of [place] [facility] [id number] José Miguel as [phone] [facility] 009 Branch Results This patient has no known results.
[2021-10-06] MEDS ORDERED: METHYLPREDNISOLONE 125 MG INJ ONE (17:27)
[2021-10-06] MEDS ORDERED: LIDOCAINE 4% PATCH ONE (17:28)
[2021-10-06] MEDS ORDERED: CYCLOBENZAPRINE 10 MG TAB ONE (17:28)
[2021-10-06] MEDS ORDERED: KETOROLAC 30 MG/ML INJ ONE (17:28)
--- NOTE | 2021-10-06 18:07 | ER ---
Nurse's Notes [facility] Name: Nancie Ordonez Age: 50 yrs Sex: Female : 1970 Arrival Date: 10/06/2021 Time: 14:21 Bed 11 Private MD: Parish Cyr Diagnosis: Chronic pain syndrome Presentation: 10/06 14:24 Chief complaint: Patient states: Pain in Right knee, neck, back and EMILY shoulders; vg1 denies any recent injuries. Coronavirus screen: Vaccine status: Patient reports receiving the 2nd dose of the covid vaccine. Client denies travel out of the [place] in the last 14 days. Ebola Screen: Patient negative for fever greater than or equal to 101.5 degrees Fahrenheit, and additional compatible Ebola Virus Disease symptoms. Initial Sepsis Screen: Does the patient meet any 2 criteria? No. Patient's initial sepsis screen is negative. Does the patient have a suspected source of infection? No. Patient's initial sepsis screen is negative. Risk Assessment: Do you want to hurt yourself or someone else? Patient reports no desire to harm self or others. Onset of symptoms was October 06, 2021. 14:24 Method Of Arrival: Ambulatory vg1 14:24 Acuity: DEEPALI 4 vg1 Triage Assessment: 14:26 General: Appears uncomfortable, Behavior is cooperative, anxious. Pain: Complains of vg1 pain in right knee, Righ shoulder, left shoulder, back and neck. Historical: - Allergies: 14:26 Ibuprofen; vg1 14:26 Naproxen; vg1 - Home Meds: 14:26 amlodipine 5 mg tab 1 tab once daily [Active]; vg1 - PMHx: 14:26 Arthritis; GERD; Gout; Hypertension; vg1 - PSHx: 14:26 hernia repair; Right arm injury; vg1 - Immunization history:: Client reports receiving the 2nd dose of the Covid vaccine. - Social history:: Smoking status: Patient denies any tobacco usage or history of. Screenin:46 Abuse screen: Denies threats or abuse. Denies injuries from another. Nutritional ab2 screening: No deficits noted. Tuberculosis screening: No symptoms or risk factors identified. Fall Risk None identified. Assessment: 14:43 General: Appears in no apparent distress. comfortable, Behavior is calm, cooperative, ab2 appropriate for age. Pain: Complains of pain in all over pain Pain currently is 9 out of 10 on a pain scale. Neuro: Level of Consciousness is awake, alert, obeys commands, Oriented to person, place, time, situation, Appropriate for age Personal Lines Insurance Agent are equal bilaterally Moves all extremities. Gait is steady, Speech is normal. Cardiovascular: Denies chest pain, shortness of breath, Heart tones S1 S2 present Patient's skin is warm and dry. Respiratory: No deficits noted. Airway is patent Denies cough, shortness of breath. GI: No deficits noted. No signs and/or symptoms were reported involving the gastrointestinal system. Bowel sounds present X 4 quads. : No deficits noted. No signs and/or symptoms were reported regarding the genitourinary system. EENT: No deficits noted. No signs and/or symptoms were reported regarding the EENT system. Derm: Skin is intact, is healthy with good turgor. Musculoskeletal: Reports pain in all over body. Vital Signs: 14:24 BP 137 / 98; Pulse 93; Resp 16; Temp 97.5; Pulse Ox 100% ; Weight 77.11 kg; Height 5 vg1 ft. 3 in. (160.02 cm); Pain 10/10; 16:08 BP 143 / 87; Pulse 91; Resp 16; Pulse Ox 98% on R/A; ab2 17:37 BP 136 / 81; Pulse 84; Resp 16; Pulse Ox 99% on R/A; ab2 14:24 Body Mass Index 30.11 (77.11 kg, 160.02 cm) vg1 ED Course: 14:21 Patient arrived in ED. mr 14:21 Parish Cyr MD is Private Physician. mr 14:24 Arm band placed on. vg1 14:26 Triage completed. vg1 14:43 Dave Cruz is Primary Nurse. ab2 14:46 Patient has correct armband on for positive identification. Bed in low position. Call ab2 light in reach. Side rails up X2. 14:46 No provider procedures requiring assistance completed. ab2 14:47 Shai Guzman MD is Attending Physician. kdr 18:06 Parish Cyr MD is Referral Physician. kdr Administered Medications: 17:37 Drug: Lidoderm Patch 5 % (700 mg/patch) 1 patches Route: Topical; Site: affected area; ab2 17:37 Drug: Flexeril (cyclobenzaprine) 10 mg Route: PO; ab2 17:37 Drug: SOLU-Medrol (methylPREDNISolone sodium succinate) 125 mg Route: IM; Site: left ab2 ventrogluteal; 17:37 Drug: Ketorolac 15 mg Route: IM; Site: left deltoid; ab2 Outcome: 18:06 Discharge ordered by . cassandra 18:14 Patient left the ED. kj1 Signatures: Shai Guzman MD MD kdr Rivera Haylie Doherty, Michelle kj1 Eden Lujan, RN RN vg1 Dave Cruz2 Corrections: (The following items were deleted from the chart) 14:27 14:24 Pulse 93bpm; Resp 16bpm; Pulse Ox 100%; Temp 97.5F; 77.11 kg; Height 5 ft. 3 in.; vg1 BMI: 30.1; Pain 10/10; vg1
--- NOTE | 2021-10-06 18:07 | EDPHYS ---
Physician Documentation [facility] Name: Nancie Ordonez Age: 50 yrs Sex: Female : 1970 Arrival Date: 10/06/2021 Time: 14:21 Bed 11 Private MD: Parish Cyr ED Physician Shai Guzman HPI: 10/06 18:47 This 50 yrs old Black Female presents to ER via Ambulatory with complaints of Pain All kdr Over. 18:47 Patient has had chronic pain for a number of years. She sees Dr. Henning sent for her [facility] primary care physician.. Onset: The symptoms/episode began/occurred at an unknown time. Longstanding. The patient has experienced similar episodes in the past, chronically. The patient has not recently seen a physician. Patient has longstanding chronic pain. Historical: - Allergies: 14:26 Ibuprofen; vg1 14:26 Naproxen; vg1 - Home Meds: 14:26 amlodipine 5 mg tab 1 tab once daily [Active]; vg1 - PMHx: 14:26 Arthritis; GERD; Gout; Hypertension; vg1 - PSHx: 14:26 hernia repair; Right arm injury; vg1 - Immunization history:: Client reports receiving the 2nd dose of the Covid vaccine. - Social history:: Smoking status: Patient denies any tobacco usage or history of. ROS: 18:47 Constitutional: Negative for fever, chills, and weight loss, Eyes: Negative for injury, kdr pain, redness, and discharge, ENT: Negative for injury, pain, and discharge, Neck: Negative for injury, pain, and swelling, Cardiovascular: Negative for chest pain, palpitations, and edema, Respiratory: Negative for shortness of breath, cough, wheezing, and pleuritic chest pain, Abdomen/GI: Negative for abdominal pain, nausea, vomiting, diarrhea, and constipation, Back: Negative for injury and pain, MS/Extremity: Negative for injury and deformity, Skin: Negative for injury, rash, and discoloration, Neuro: Negative for headache, weakness, numbness, tingling, and seizure activity. Psych: Negative for depression, anxiety, suicide ideation, homicidal ideation, and hallucinations, Allergy/Immunology: Negative for hives, rash, and allergies, Endocrine: Negative for neck swelling, polydipsia, polyuria, polyphagia, and marked weight changes, Hematologic/Lymphatic: Negative for swollen nodes, abnormal bleeding, and unusual bruising. Exam: 18:47 Constitutional: This is a well developed, well nourished patient who is awake, alert, kdr and in no acute distress. Head/Face: Normocephalic, atraumatic. Eyes: Pupils equal round and reactive to light, extra-ocular motions intact. Lids and lashes normal. Conjunctiva and sclera are non-icteric and not injected. Cornea within normal limits. Periorbital areas with no swelling, redness, or edema. Neck: Trachea midline, no thyromegaly or masses palpated, and no cervical lymphadenopathy. Supple, full range of motion without nuchal rigidity, or vertebral point tenderness. No Meningismus. Chest/axilla: Normal chest wall appearance and motion. Nontender with no deformity. No lesions are appreciated. Cardiovascular: Regular rate and rhythm with a normal S1 and S2. No gallops, murmurs, or rubs. Normal PMI, no JVD. No pulse deficits. Respiratory: Lungs have equal breath sounds bilaterally, clear to auscultation and percussion. No rales, rhonchi or wheezes noted. No increased work of breathing, no retractions or nasal flaring. Abdomen/GI: Soft, non-tender, with normal bowel sounds. No distension or tympany. No guarding or rebound. No evidence of tenderness throughout. Back: No spinal tenderness. No costovertebral tenderness. Full range of motion. Skin: Warm, dry with normal turgor. Normal color with no rashes, no lesions, and no evidence of cellulitis. MS/ Extremity: Pulses equal, no cyanosis. Neurovascular intact. Full, normal range of motion. Neuro: Awake and alert, GCS 15, oriented to person, place, time, and situation. Cranial nerves II-XII grossly intact. Motor strength 5/5 in all extremities. Sensory grossly intact. Cerebellar exam normal. Normal gait. Psych: Awake, alert, with orientation to person, place and time. Behavior, mood, and affect are within normal limits. Vital Signs: 14:24 BP 137 / 98; Pulse 93; Resp 16; Temp 97.5; Pulse Ox 100% ; Weight 77.11 kg; Height 5 vg1 ft. 3 in. (160.02 cm); Pain 10/10; 16:08 BP 143 / 87; Pulse 91; Resp 16; Pulse Ox 98% on R/A; ab2 17:37 BP 136 / 81; Pulse 84; Resp 16; Pulse Ox 99% on R/A; ab2 14:24 Body Mass Index 30.11 (77.11 kg, 160.02 cm) vg1 MDM: 18:06 Patient medically screened. kdr 18:54 Data reviewed: vital signs, nurses notes. Counseling: I had a detailed discussion with kdr the patient and/or guardian regarding: the historical points, exam findings, and any diagnostic results supporting the discharge/admit diagnosis, the need for outpatient follow up. Administered Medications: 17:37 Drug: Lidoderm Patch 5 % (700 mg/patch) 1 patches Route: Topical; Site: affected area; ab2 17:37 Drug: Flexeril (cyclobenzaprine) 10 mg Route: PO; ab2 17:37 Drug: SOLU-Medrol (methylPREDNISolone sodium succinate) 125 mg Route: IM; Site: left ab2 ventrogluteal; 17:37 Drug: Ketorolac 15 mg Route: IM; Site: left deltoid; ab2 Disposition Summary: 10/06/21 18:06 Discharge Ordered Location: Home kdr Problem: an ongoing problem kdr Symptoms: are unchanged kdr Condition: Stable kdr Diagnosis - Chronic pain syndrome kdr Followup: kdr - With: Parish Cyr MD - When: 2 - 3 days - Reason: If symptoms return, Further diagnostic work-up, Recheck today's complaints, Continuance of care, Re-evaluation by your physician Discharge Instructions: - Discharge Summary Sheet kdr - Chronic Pain, Adult kdr Forms: - Medication Reconciliation Form kdr - Thank You Letter kdr Prescriptions: - Lidoderm 5 % Topical adhesive patch,medicated - apply 1 patch by TRANSDERMAL route once daily As needed; 10 patch; Refills: 0, kdr Product Selection Permitted - Cyclobenzaprine 10 mg Oral Tablet - take 1 tablet by ORAL route every 8 hours As needed; 15 tablet; Refills: 0, kdr Product Selection Permitted - Medrol (Royal) 4 mg Oral Tablets, Dose Pack - take 1 tablet by ORAL route as directed - follow package instructions; 1 kdr packet; Refills: 0, Product Selection Permitted Signatures: Shai Guzman MD MD kdr Eden Lujan RN RN vg1 Bleininger, Dave ab2
[2021-10-06 18:18] VITALS: TEMP 97.5
[2021-10-06 18:21] VITALS: BP 136/81; O2SAT 99
== END 2021-10-06 18:14 | disposition home or self-care (01) ==
LOC: ER 14:17
DX: G89.4 Chronic pain syndrome (principal); I10 Essential (primary) hypertension; Z88.6 Allergy status to analgesic agent
CPT/HCPCS: 96372; 99283; J2930

== ENCOUNTER 2021-10-14 10:33 | Emergency (ER) | payer OTHER ==
--- OUTSIDE RECORDS SUMMARY | 2021-10-14 10:36 | XMS REPORT | Continuity of Care Document ---
:1970 Author Organization [facility] t Address [address] [place] [address] Care Team Providers Name Role Phone Michele [...] naproxen DA Active SV 2017-0 [facility] 2- [place] 00:00: Orthope 00 dic Hosp[facility] l Naproxen Propensi Active Unknown - Uni vers ty to See comments 03-11 ity of adverse 00:00: [place] reaction 00 Medical s to Branch drug Social History Social Habit Start Date Stop Date Quantity Comments Source History SDOH University o f Alcohol Std Drinks [place] [facility] History [facility] University o f Alcohol Binge [place] [facility] al Branch History SDMS University o f Alcohol Frequency [facility] edical Branch Alcohol intake 2019-06-18 [...] 2016-12-14 2016-12-14 University of pack-years 00:00:00 00:00:00 [facility] Tobacco use and 2016-12-14 2016-12-14 Never used Universit y of exposure 00:00:00 00:00:00 [facility] History of tobacco 2001-12-14 Cigarette Smoker University of use 00:00:00 [facility] Sex Assigned At [birth year] Universit y of 00:00:00 00:00:00 [facility] Smoking Status Start Date Stop Date Source Former smoker 2016-12-14 00:00:00 2016-12-14 00:00:00 Universi ty of [facility] Medications Ordered Filled Start Stop Current Ordering [...] tablet 00 Medical Branch betamethaso 2013-0 Yes [id number] Apply to [facility] 2- area(s) ity of dipropionat 00:00: two (2) José Miguel as e 00 times Medical (DIPROLENE) daily. Branch 0.05 % cream Immunizations Ordered Filled Immunization Date Status Comments [facility] e Immunization Name Name Influenza Virus 2007-07-02 Completed Universit y of Vaccine 00:00:00 [facility] Procedures Procedure Date / Time Performing Clinician Source Performed AUTHORIZATION FOR 2021-06-09 05:01:00 Doctor Unassigned, No [facility] RELEASE OF PHI Name Medical Branch Encounters Start End Encounter Admission Attending Care Care Encounter Source Date/Time Date/Time Type Type Clinicians Facility Department ID 2021-06-09 2021-06-09 Orders Doctor MARISCAL [id number] [facility] 00:00:00 00:00:00 Only Unassigned, BETH [id number] ity of [place] [facility] [id number] José Miguel as [id number] [facility] 009 Branch Results This patient has no known results.
--- NOTE | 2021-10-14 11:07 | ER ---
Nurse's Notes [facility] Name: Nancie Ordonez Age: 50 yrs Sex: Female : 1970 Arrival Date: 10/14/2021 Time: 10:35 Bed 11 Private MD: Diagnosis: Chronic pain syndrome Presentation: 10/14 10:45 Chief complaint: Patient states: Chronic neck and back pains, bad since last night. ll1 Coronavirus screen: Vaccine status: Patient reports receiving the 2nd dose of the covid vaccine. Client denies travel out of the [place] in the last 14 days. At this time, the client does not indicate any symptoms associated with coronavirus-19. Ebola Screen: Patient denies travel to an Ebola-affected area in the 21 days before illness onset. Initial Sepsis Screen: Does the patient meet any 2 criteria? No. Patient's initial sepsis screen is negative. Does the patient have a suspected source of infection? No. Patient's initial sepsis screen is negative. Risk Assessment: Do you want to hurt yourself or someone else? Patient reports no desire to harm self or others. Onset of symptoms was October 04, 2021. 10:45 Method Of Arrival: Ambulatory ll1 10:45 Acuity: DEEPALI 4 ll1 Triage Assessment: 10:47 General: Appears uncomfortable, Behavior is calm, cooperative, appropriate for age. ll1 Pain: Complains of pain in neck/back. Musculoskeletal: Circulation, motion, and sensation intact. Capillary refill < 3 seconds, Range of motion: intact in all extremities. Historical: - Allergies: 10:46 Ibuprofen; ll1 10:46 Naproxen; ll1 - PMHx: 10:46 Arthritis; GERD; Gout; Hypertension; ll1 - PSHx: 10:46 hernia repair; Right arm injury; ll1 10:46 neck SX; ll1 - Immunization history:: Client reports receiving the 2nd dose of the Covid vaccine. - Social history:: Smoking status: Patient denies any tobacco usage or history of. Screenin:24 Abuse screen: Denies threats or abuse. Denies injuries from another. Nutritional ic1 screening: No deficits noted. Tuberculosis screening: No symptoms or risk factors identified. Fall Risk None identified. Assessment: 11:24 Pain: Complains of pain in Pt c/o generalized pain x several days. Denies fever, cp, ic1 cough, sore throat, or sob. Neuro: No deficits noted. Cardiovascular: No deficits noted. Respiratory: No deficits noted. GI: No deficits noted. : No deficits noted. EENT: No deficits noted. Derm: No deficits noted. Musculoskeletal: No deficits noted. Vital Signs: 10:45 BP 124 / 97; Pulse 111; Resp 18; Temp 97.1; Pulse Ox 95% ; Weight 73.03 kg; Height 5 ll1 ft. 3 in. (160.02 cm); Pain 10/10; 11:33 BP 121 / 84; Pulse 98; Resp 18; Pulse Ox 100% ; ic1 10:45 Body Mass Index 28.52 (73.03 kg, 160.02 cm) ll1 ED Course: 10:35 Patient arrived in ED. rg4 10:46 Triage completed. ll1 10:47 Arm band placed on Patient placed in an exam room, on a stretcher. ll1 10:49 Pat Doherty FNP-C [facility] kb 10:49 Yemi Oliveira MD is Attending Physician. kb 11:07 Antolin Uribe MD is Referral Physician. kb 11:07 Neto Garrido DO is Referral Physician. kb 11:24 Patient has correct armband on for positive identification. ic1 11:24 No provider procedures requiring assistance completed. Patient did not have IV access ic1 during this emergency room visit. Administered Medications: 11:24 Drug: Ketorolac 30 mg Route: IM; Site: right deltoid; ic1 11:24 Drug: Kittery (HYDROcodone-acetaminophen) (7.5 mg-325 mg) 1 tabs Route: PO; ic1 Outcome: 11:06 Discharge ordered by . kb 11:25 Discharged to home ambulatory. ic1 11:25 Condition: stable 11:25 Discharge instructions given to patient, family, Instructed on discharge instructions, follow up and referral plans. Demonstrated understanding of instructions, follow-up care. 11:33 Patient left the ED. ic1 Signatures: Pat Doherty FNP-C FNP-Ckb Garcia, Rubi rg4 Vik Edwards RN RN ll1 Avani Bennett RN RN ic1
--- NOTE | 2021-10-14 11:07 | EDPHYS ---
Physician Documentation [facility] Name: Nancie Ordonez Age: 50 yrs Sex: Female : 1970 Arrival Date: 10/14/2021 Time: 10:35 Bed 11 Private MD: ED Physician Yemi Oliveira HPI: 10/14 11:00 This 50 yrs old Black Female presents to ER via Ambulatory with complaints of Body kb Aches. 11:05 Pt reports chronic pain that is getting worse. States she went to therapy for it kb yesterday and was told she needed to go to pain management. . Onset: The symptoms/episode began/occurred chronic condition. Severity of symptoms: At their worst the symptoms were moderate in the emergency department the symptoms are unchanged. The patient has not experienced similar symptoms in the past. The patient has not recently seen a physician. Historical: - Allergies: 10:46 Ibuprofen; ll1 10:46 Naproxen; ll1 - PMHx: 10:46 Arthritis; GERD; Gout; Hypertension; ll1 - PSHx: 10:46 hernia repair; Right arm injury; ll1 10:46 neck SX; ll1 - Immunization history:: Client reports receiving the 2nd dose of the Covid vaccine. - Social history:: Smoking status: Patient denies any tobacco usage or history of. ROS: 10:59 Constitutional: Negative for fever, chills, and weight loss. kb 10:59 Back: Positive for pain at rest, pain with movement, of the thoracic area and lumbar area. 10:59 All other systems are negative. Exam: 10:59 Constitutional: This is a well developed, well nourished patient who is awake, alert, kb and in no acute distress. Head/Face: Normocephalic, atraumatic. ENT: Moist Mucous membranes Respiratory: Respirations even and unlabored. No increased work of breathing. Talking in full sentences Skin: Warm, dry with normal turgor. Normal color. MS/ Extremity: Pulses equal, no cyanosis. Neurovascular intact. Full, normal range of motion. Neuro: Awake and alert, GCS 15, oriented to person, place, time, and situation. Moves all extremities. Normal gait. Psych: Awake, alert, with orientation to person, place and time. Behavior, mood, and affect are within normal limits. Vital Signs: 10:45 BP 124 / 97; Pulse 111; Resp 18; Temp 97.1; Pulse Ox 95% ; Weight 73.03 kg; Height 5 ll1 ft. 3 in. (160.02 cm); Pain 10/10; 11:33 BP 121 / 84; Pulse 98; Resp 18; Pulse Ox 100% ; ic1 10:45 Body Mass Index 28.52 (73.03 kg, 160.02 cm) ll1 MDM: 10:49 Patient medically screened. kb 10:58 Data reviewed: vital signs, nurses notes. Data interpreted: Pulse oximetry: on room air kb is 95 %. Interpretation: normal. Counseling: I had a detailed discussion with the patient and/or guardian regarding: the historical points, exam findings, and any diagnostic results supporting the discharge/admit diagnosis, the need for outpatient follow up, a family practitioner, to return to the emergency department if symptoms worsen or persist or if there are any questions or concerns that arise at home. Administered Medications: 11:24 Drug: Ketorolac 30 mg Route: IM; Site: right deltoid; ic1 11:24 Drug: [place] (HYDROcodone-acetaminophen) (7.5 mg-325 mg) 1 tabs Route: PO; ic1 Disposition: 12:42 Co-signature as Attending Physician, Yemi Oliveira MD I agree with the assessment and vargas plan of care. Disposition Summary: 10/14/21 11:06 Discharge Ordered Location: Home kb Condition: Stable kb Diagnosis - Chronic pain syndrome kb Followup: kb - With: Emergency Department - When: As needed - Reason: Worsening of condition Followup: kb - With: Private Physician - When: 2 - 3 days - Reason: Recheck today's complaints, Continuance of care, Re-evaluation by your physician Followup: kb - With: Antolin Uribe MD - When: 2 - 3 days - Reason: Followup: kb - With: Neto Garrido DO - When: 2 - 3 days - Reason: Discharge Instructions: - Discharge Summary Sheet kb - Chronic Pain, Adult kb Forms: - Medication Reconciliation Form kb - Thank You Letter kb - Antibiotic Education kb - Prescription Opioid Use kb Signatures: Pat Doherty, TANIKAC HUMBERTO-Yemi Yeager MD MD cha Lewis, Lynsay, RN RN ll1 Creggett, Avani, RN RN ic1
[2021-10-14] MEDS ORDERED: HYDROCODONE/APAP 7.5/325 MG TAB ONE (11:20)
[2021-10-14] MEDS ORDERED: KETOROLAC 30 MG/ML INJ ONE (11:23)
[2021-10-14 11:38] VITALS: TEMP 97.1
[2021-10-14 11:39] VITALS: BP 121/84; O2SAT 100
== END 2021-10-14 11:33 | disposition home or self-care (01) ==
LOC: ER 10:33
DX: G89.4 Chronic pain syndrome (principal); I10 Essential (primary) hypertension; Z88.5 Allergy status to narcotic agent; Z88.6 Allergy status to analgesic agent
CPT/HCPCS: 96372; 99283

== ENCOUNTER 2021-11-04 17:43 | Inpatient (IN) | payer OTHER ==
--- OUTSIDE RECORDS SUMMARY | 2021-11-04 17:53 | XMS REPORT | Continuity of Care Document ---
:1970 Author Organization [facility] t Address [address] [place] [address] Care Team Providers Name Role Phone [facility] Primary Care Physician Doctor Unassigned, Name Attending Clinician Unavailable Evelin GRAJEDA, L Attending Clinician Unavailable REHANA Attending Clinician Unavailable Ilan YI Attending Clinician Josie YI Attending Clinician Jennifer YI Attending Clinician Rehana YI Attending Clinician Sunday Olivarez MD Attending Clinician JENNIFER Admitting Clinician Unavailable Jennifer YI Admitting Clinician Payers Payer Name Policy Type Policy Number Effective Date Expiration Date S ource Problems Condition Condition Condition Status Onset Resolution Last Treating Co mments Source Name Details Category Date Date Treatment Clinician Date Morbid Morbid Disease Active Univers obesity obesity 2-14 [place] of with [place] index 00 Me dical of of Branch 40.0-49.9 40.0-49.9 Obesity Obesity Disease Active Univers (BMI (BMI 2-12 ity of 30-39.9) 30-39.9) 00:00: [place] [id number] Medical Branch Acute Acute Disease Active Univers hypoxemic hypoxemic 2-12 [place]y of respirator [place] failure y failure 00 [facility] dayna Branch Depo-Prove Depo-Prove Disease Active U nivers ra ra 4-13 ity of contracept contracept 00:[place] lloyd status lloyd status 00 Me dical Branch Allergies, Adverse Reactions, Alerts Allergy Allergy Status Severity Reaction(s) Onset Inactive Treating Comm ents Source Name Type Date Date Clinician NSAIDS Drug Active Unknown-Cmnt Univ ers (NON-MADAN Class 2-12 ity of ROIDAL 00:00: [place] ANTI-INF 00 Medical LAMMATOR Branch Y DRUG) Nsaids Propensi Active Unknown - Unive rs (Non-Madan ty to See comments 2-12 it y of roidal adverse 00:00: [place] Anti-Inf reaction 00 Medica l lammator s Branch y Drug) naproxen DA Active [facility] [place] [facility] Naproxen Propensi Active Unknown - Uni vers ty to See comments 03-11 ity of adverse 00:00: [place] reaction 00 Medical s to Branch drug NAPROXEN DRUG Active Unknown-Cmnt Un guillermina INGREDI 03-11 ity of 00:00: [place] 00 Medical Branch Social History Social Habit Start Date Stop Date Quantity Comments Source History [facility] University o f Alcohol Std Drinks [place] [facility] History [facility] o f Alcohol Binge [place] Medic al Branch Exposure to Not sure [place] of SARS-CoV-2 (event) [place] [facility] History [facility] [employer] Alcohol intake 2021-10-24 2021-10-24 Current drinker Unive rsity of 00:00:00 00:00:00 of alcohol [place] Medical (finding) Branch Education 2021-10-15 2021-10-15 12 University of 00:00:00 00:00:00 [facility] Tobacco Comment 2021-10-15 2021-10-15 30 years ago Univers ity of 00:00:00 00:00:00 [facility] Alcohol Comment 2016-12-14 2016-12-14 infrequent - Univers ity of 00:00:00 00:00:00 family parties, [place] Med ical wine, 12 oz/time Branch Cigarettes smoked 2016-12-14 2016-12-14 Univers ity of current (pack per 00:00:00 00:00:00 ) - Reported Branch Cigarette 2016-12-14 2016-12-14 University of pack-years 00:00:00 00:00:00 [facility] Tobacco use and 2016-12-14 2016-12-14 Never used Universit y of exposure 00:00:00 00:00:00 [facility] History of tobacco 2001-12-14 Cigarette Smoker University of use 00:00:00 [facility] Sex Ass[birth year] At [birth year] Universit y of 00:00:00 00:00:00 [facility] Smoking Status Start Date Stop Date Source Former smoker 2016-12-14 00:00:00 2016-12-14 00:00:00 Universi ty [facility] Medications Ordered Filled Start Stop Current Ordering Indication Dosage Frequency Signature Comments Components Source Medication Medication Date Date Medication? Clinician (SIG) Name Name hydroCHLORO Yes [id number] 12.5mg Take 1 Univers thiazide 2-22 capsule by ity o f 12.5 mg 00:00: mouth [place] capsule 00 daily. Medical Branch hydroCHLORO Yes [id number] 12.5mg Take 1 Univers thiazide 2-22 capsule by ity o f 12.5 mg 00:00: mouth [place] capsule 00 daily. Medical Branch hydroCHLORO Yes [id number] 12.5mg Take 1 Univers thiazide 2-22 capsule by ity o f 12.5 mg 00:00: mouth [place] capsule 00 daily. Medical Branch hydroCHLORO 0 Yes [id number] 12.5mg Take 1 Univers thiazide 2-22 capsule by ity o f 12.5 mg 00:00: mouth [place] capsule 00 daily. Medical Branch hydroCHLORO 2021-2- No [id number] 12.5mg Take 1 Univers thiazide 2-22 02-21 capsule by ity of 12.5 mg 00:00: 00:00 mouth [place] capsule 00 :00 daily for Medical 30 days. Branch hydroCHLORO 2022- No [id number] 12.5mg Take 1 Univers thiazide 2-22 02-21 capsule by ity of 12.5 mg 00:00: 00:00 mouth [place] capsule 00 :00 daily for Medical 30 days. Branch lurasidone 0 Yes Take by Uni vers HCl (LATUDA 2-21 mouth. ity of ORAL) 17:53: [place] [address] Medical Branch lurasidone 2021-0 Yes Take by Uni vers HCl (LATUDA 2-21 mouth. ity of ORAL) 17:53: [place] [address] Medical Branch lurasidone 2021-0 Yes Take by Uni vers HCl (LATUDA 2-21 mouth. ity of ORAL) 17:53: [place] [address] Medical Branch lurasidone 2021-0 Yes Take by Uni vers HCl (LATUDA 2-21 mouth. ity of ORAL) 10:59: [place] [address] Medical Branch zolpidem 0 2021- No 5mg 5 mg, Univers (AMBIEN) 2-21 02-21 Oral, ity of tablet 5 mg 04:00: 03:07 ONCE, 1 [place] :[place] dose, On Medical Sun Branch 10/23/21 at 2200, Routine docusate 0 Yes [id number] 100mg Take 1 U nivers 100 mg 2-21 capsule by ity of capsule 00:00: mouth [place] (two) Medical times Branch daily. busPIRone 5 2021-0 Yes [id number] 5mg Take 1 Univers mg tablet 2-21 tablet by ity o f 00:00: mouth [place] (two) Medical times Branch daily. chlorhexidi 2021-0 Yes [id number] 15mL [place] and Univers ne 0.12 % -21 spit out ity of mouthwash 00:00: 15 mL 2 [place] (two) Medical times Branch daily. albuterol 2021-0 Yes [id number] 2{puff} Inhale 2 Univers 90 2-21 Puffs ity of mcg/actuati 00:00: every 6 [place] as on inhaler 00 (six) Medical hours as Branch needed for Wheezing or Shortness of Breath. predniSONE 2021-0 Yes [id number] 40mg Take 2 Univers 20 mg 2-21 tablets by ity of tablet 00:00: mouth 00 daily. Medical Branch docusate 2021-0 Yes [id number] 100mg Take 1 U nivers 100 mg 2-21 capsule by ity of capsule 00:00: mouth 2 [place] (two) Medical times Branch daily. busPIRone 5 2021-0 Yes [id number] 5mg Take 1 Univers mg tablet 2-21 tablet by ity o f 00:00: mouth (two) Medical times Branch daily. chlorhexidi 2021-0 Yes [id number] 15mL Swish and Univers ne 0.12 % 2-21 spit out ity of mouthwash 00:00: 15 mL 2 (two) Medical times Branch daily. albuterol 2021-0 Yes [id number] 2{puff} Inhale 2 Univers 90 2-21 Puffs ity of mcg/actuati 00:00: every 6 [place] as on inhaler 00 (six) Medical hours as Branch needed for Wheezing or Shortness of Breath. predniSONE 2021-0 Yes [id number] 40mg Take 2 Univers 20 mg 2-21 tablets by ity of tablet 00:00: mouth daily. Medical Branch docusate 2021-0 Yes [id number] 100mg Take 1 U nivers 100 mg 2-21 capsule by ity of capsule 00:00: mouth (two) Medical times Branch daily. busPIRone 5 2021-0 Yes [id number] 5mg Take 1 Univers mg tablet 2-21 tablet by ity o f 00:00: mouth (two) Medical times Branch daily. chlorhexidi 2021-0 Yes [id number] 15mL Swish and Univers ne 0.12 % 2-21 spit out ity of mouthwash 00:00: 15 mL (two) Medical times Branch daily. albuterol 2021-0 Yes [id number] 2{puff} Inhale 2 Univers 90 2-21 Puffs ity of mcg/actuati 00:00: every 6 [place] as on inhaler 00 (six) Medical hours as Branch needed for Wheezing or Shortness of Breath. predniSONE 2021-0 Yes [id number] 40mg Take 2 Univers 20 mg 2-21 tablets by ity of tablet 00:00: mouth daily. Medical Branch docusate 2021-0 Yes [id number] 100mg Take 1 U nivers 100 mg 2-21 capsule by ity of capsule 00:00: mouth (two) Medical times Branch daily. albuterol 2022-0 Yes [id number] 2{puff} Inhale 2 Univers 90 2-21 Puffs ity of mcg/actuati 00:00: every 6 [place] as on inhaler 00 (six) Medical hours as Branch needed for Wheezing or Shortness of Breath. busPIRone 5 Yes [id number] 5mg Take 1 Univers mg tablet - tablet by ity o f 00:00: mouth 2 [place] 00 (two) Medical times Branch daily. chlorhexidi Yes [id number] 15mL Swish and Univers ne 0.12 % - spit out ity of mouthwash 00:00: 15 mL 2 [place] 00 (two) Medical times Branch daily. predniSONE 2021- Yes [id number] 40mg Take 2 Univers 20 mg - 03-24 tablets by ity of tablet 00:00: 04:59 mouth [place] 00 :00 daily for Medical 30 days. Branch acetaminoph 2021- Yes [id number] 1{tbl} Take 1 U nivers en-codeine 10-24- tablet by ity of 300-30 mg 00:00: 05:59 mouth [place] tablet 00 :00 every 4 Medical (four) Branch hours as needed for Pain (scale 4-6) for up to 5 days. Indication s: acute pain acetaminoph 2021- Yes [id number] 1{tbl} Take 1 U nivers en-codeine 10-24- tablet by ity of 300-30 mg 00:00: 05:59 mouth [place] tablet 00 :00 every 4 Medical (four) Branch hours as needed for Pain (scale 4-6) for up to 5 days. Indication s: acute pain acetaminoph 2021- Yes [id number] 1{tbl} Take 1 U nivers en-codeine -24 10- tablet by ity of 300-30 mg 00:00: 05:59 mouth [place] tablet 00 :00 every 4 Medical (four) Branch hours as needed for Pain (scale 4-6) for up to 5 days. Indication s: acute pain busPIRone 5 2021- No [id number] 5mg Take 1 Univers mg tablet -24 10- tablet by ity of 00:00: 00:00 mouth 2 [place] 00 :00 (two) Medical times Branch daily for 30 days. chlorhexidi 2021- No [id number] 15mL Swish and Univers ne 0.12 % 10-24 spit out ity o f mouthwash 00:00: 00:00 15 mL 2 [place] 00 :[place] (two) Medical times Branch daily for 7 days. albuterol 2021- No [id number] 2{puff} Inhale 2 Univers 90 10-24- Puffs ity of mcg/actuati 00:00: 00:00 every 6 [place] on inhaler 00 :00 (six) Medical hours as Branch needed for Wheezing or Shortness of Breath. predniSONE 2021- No [id number] 40mg Take 2 Univers 20 mg 10-24- tablets by ity of tablet 00:00: 00:00 mouth [place] 00 :00 daily for Medical 30 days. Branch busPIRone 5 2021- No [id number] 5mg Take 1 Univers mg tablet 10-24- tablet by ity of 00:00: 00:00 mouth 2 [place] 00 :00 (two) Medical times Branch daily for 30 days. chlorhexidi 2021- No [id number] 15mL Swish and Univers ne 0.12 % 10-24 spit out ity o f mouthwash 00:00: 00:00 15 mL 2 [place] 00 :00 (two) Medical times Branch daily for 7 days. phenoL Yes 1{spray 1 [place], Univ ers (SORE 2-20 } Oral, PRN, ity of THROAT 19:03: Starting [place] (PHENOL)) 59 on Sun Medical 1.4 % spray 10/23/21 at Br anch bottle 1 1303, [place] Until Discontinu ed, Routine, Sore throat phenoL Yes 1{spray 1 [place], Univ ers (SORE 2-20 } Oral, PRN, ity of THROAT 19:03: Starting [place] (PHENOL)) 59 on Sun Medical 1.4 % spray 10/23/21 at Br anch bottle 1 1303, [place] Until Discontinu ed, Routine, Sore throat zolpidem 2022-0 2022- No 5mg 5 mg, Univers (AMBIEN) 2-20 02-20 Oral, ity of tablet 5 mg 04:00: 03:54 ONCE, 1 [place] 00 :[place] dose, On Medical Sat Branch 10/22/21 at 2200, Routine methylpredn 2022-0 Yes 125mg 125 mg, Un guillermina isolone sod 2-19 Intravenou it y of succ 20:00: s, Q8H, [place] (SOLU-MEDRO 00 First dose Me dical L) (after Branch injection last 125 mg modificati on) on [facility] 10/22/21 at 1400, Until Discontinu ed, Routine methylpredn 2022-0 Yes 125mg 125 mg, Un guillermina isolone sod 2-19 Intravenou it y of succ 20:00: s, Q8H, [place] (SOLU-MEDRO 00 First dose Me dical L) (after Branch injection last 125 mg modificati on) on [facility] 10/22/21 at 1400, Until Discontinu ed, Routine hydroCHLORO 2022-0 Yes 12.5mg 12.5 mg, [facility] thiazide - Oral, ity of (ESIDRIX) 15:30: DAILY, [place] capsule 00 First dose Medica l 12.5 mg on [facility] Branch 10/22/21 at 0930, Until Discontinu ed, Routine amLODIPine 2022-0 Yes 10mg 10 mg, Unive rs (NORVASC) 2-19 Oral, ity of tablet 10 15:30: DAILY, [place] mg 00 First dose Medical on [facility] Branch 10/22/21 at 0930, Until Discontinu ed, Routine hydroCHLORO 2022-0 Yes 12.5mg 12.5 mg, [facility] thiazide 2-19 Oral, ity of (ESIDRIX) 15:30: DAILY, [place] capsule 00 First dose Medica l 12.5 mg on [facility] Branch 10/22/21 at 0930, Until Discontinu ed, Routine amLODIPine 2022-0 Yes 10mg 10 mg, Unive rs (NORVASC) 2-19 Oral, ity of tablet 10 15:30: DAILY, [place] mg 00 First dose Medical on Sat Branch 10/22/21 at 0930, Until Discontinu ed, Routine acetaminoph 2022-0 Yes 650mg 650 mg, Un guillermina en 2-19 Oral, ity of (TYLENOL) 09:54: Q6HPRN, [place] tablet 650 49 Starting Medic al mg on Sat Branch 10/22/21 at 0354, Until Discontinu ed, Routine, Pain (scale 1-3) acetaminoph 2021-0 Yes 650mg 650 mg, Un guillermina en 10-22 Oral, ity of (TYLENOL) 09:54: Q6HPRN, [place] tablet 650 49 Starting Medic al mg on Sat Branch 10/22/21 at 0354, Until Discontinu ed, Routine, Pain (scale 1-3) chlorhexidi 2021-0 Yes 15mL 15 mL, Univ ers ne - Oral ity of (PERIDEX) 02:00: ([place] 0.12 % 00 Spit Out), Medical mouthwash BID, First Bran ch 15 mL dose on Sun10/21/21 at 1999, Until Discontinu ed, Routine chlorhexidi 2021-0 Yes 15mL 15 mL, Univ ers ne - Oral ity of (PERIDEX) 02:00: ([place] 0.12 % 00 Spit Out), Medical mouthwash BID, First Bran ch 15 mL dose on Sun10/21/21 at 2000, Until Discontinu ed, Routine dexMEDEtomi 2021- No .2ug/kg 0.2-1.5 Univers dine 200 10-21 02-19 /h mcg/kg/hr ity o f mcg in 0.9 21:00: 15:22 ?99.8 kg [place] % NaCl 50 00 :55 (4.99-37.4 Medi dayna mL 25 mL/hr, Branch (PRECEDEX) rounded to RTU IV 4.99-37.43 infusion mL/hr), IV Infusion, TITRATE, Sedation-R ASS score (0 to -1), Starting on Sun10/21/21 at 1500
In itiate infusion at 0.2 mcg/kg/hr and titrate by 0.1 mcg/kg/hr every 30 minutes to goal sedation score. Maximum dose = 1.5 mcg/kg/hr. If goal not maintained at maximum allowed dose, contact prescriber .
propofoL IV 0 2021- No 5ug/kg/ 5-50 Un guillermina infusion 2-18 02-19 min mcg/kg/min ity of 20:41: 15:22 ?99.8 kg [place] 59 :55 (2.994-29. Medical 94 mL/hr, Branch rounded to 2.99-29.94 mL/hr), IV Infusion, TITRATE, Sedation-R ASS score (-1 to -2), Starting on Sun10/21/21 at 1441
In itiate infusion at 5 mcg/kg/min and titrate by 5 mcg/kg/min every 30 seconds to 10 minutes to goal sedation score. Maximum dose = 50 mcg/kg/min . If goal not maintained at maximum allowed dose, contact prescriber . &nbs p;Tubing and unused portions of vials should be discarded after 12 hours.
fentaNYL PF 2021- No 25ug/h 25-200 U nivers (SUBLIMAZE) 10-21 mcg/hr ity o f STD 2,500 19:53: 15:22 (2.5-20 [place] mcg in NaCl 24 :55 mL/hr), IV Me dical 0.9% (NS) Infusion, Branc h 250 mL TITRATE, infusion CPOT/Pain RTU Scale Goals Determined by Provider, Starting on Sun10/21/21 at 1353
In itiate infusion at 25 mcg/hr. Titrate by 25 mcg/hr every 1 minute to 15 minutes to identified goal pain and/or sedation scores. Maximum dose = 200 mcg/hr. If goal not maintained at maximum allowed dose, contact prescriber .
lidocaine Yes PRN, Univers 4% 10-21 Starting ity of (XYLOCAINE) 19:00: on Sun [place] 4 % (40 00 10/21/21 at Medica l mg/mL) 1300, Branch topical Until solution Discontinu ed, Routine, Intra-op lidocaine 0 Yes PRN, Univers 4% - Starting ity of (XYLOCAINE) 19:00: on Sun [place] 4 % (40 00 10/21/21 at Medica l mg/mL) 1300, Branch topical Until solution Discontinu ed, Routine, Intra-op methylpredn 2021- No 125mg 125 mg, U nivers isolone sod 10-21 Intravenou i ty of succ 19:00: 15:22 s, Q6H, [place] (SOLU-MEDRO 00 :22 First dose Me dical L) (after Branch injection last 125 mg modificati on) on Sun10/21/21 at 1300, Until Discontinu ed, Routine metoprolol 2021-0 2021- No 5mg 5 mg, Slow Univers (LOPRESSOR) 10-21 IV Push, ity of injection 5 19:00: 19:00 ONCE, 1 [place] mg 00 :00 dose, On Fri Branch 10/21/21 at 1300, Routine EPINEPHrine 2021-0 Yes PRN, Univer s 1:1,000 (1 10-21 Starting ity o f mg/mL) 18:01: on Sun [place] (ADRENALIN) 10/21/21 at Md dical injection 1201, Branch Until Discontinu ed, Routine, Intra-op EPINEPHrine 2021-0 Yes PRN, Univer s 1:1,000 (1 10-21 Starting ity o f mg/mL) 18:01: on Sun [place] (ADRENALIN) 10/21/21 at Md dical injection 1201, Branch Until Discontinu ed, Routine, Intra-op ondansetron 2021-0 Yes 4mg 4 mg, Slow Univers (ZOFRAN 2-18 IV Push, ity of (PF)) 17:19: PRN, 1 [place] injection 4 50 dose, Medical mg Starting Branch on Sun10/21/21 at 1119, Until Discontinu ed, Routine, Nausea and Vomiting (N/V), PACU ondansetron 2021-0 Yes 4mg 4 mg, Slow Univers (ZOFRAN 2-18 IV Push, ity of (PF)) 17:19: PRN, 1 [place] injection 4 50 dose, Medical mg Starting Branch on Sun10/21/21 at 1119, Until Discontinu ed, Routine, Nausea and Vomiting (N/V), PACU NaCl 0.9% 2021-0 Yes PRN, Univers (NS) -18 Starting ity of injection 17:01: on Sun [place] 10/21/21 at [facility] 1101, Branch Until Discontinu ed, Routine, Intra-op NaCl 0.9% 2021-0 Yes PRN, Univers (NS) 2-18 Starting ity of injection 17:01: on Fri [place] 00 10/21/21 at Medical 1101, Branch Until Discontinu ed, Routine, Intra-op morpHINE 2021-0 Yes 4mg 4 mg, Slow Uni vers injection 4 -17 IV Push, ity of mg 23:22: Q4HPRN, [place] 52 Starting Medical on [place] Branch 10/20/21 at 1722, Until Discontinu ed, Routine, Pain (scale 7-10) morpHINE 2021-0 Yes 4mg 4 mg, Slow Uni vers injection 4 17 IV Push, ity of mg 23:22: Q4HPRN, [place] 52 Starting Medical on [place] Branch 10/20/21 at 1722, Until Discontinu ed, Routine, Pain (scale 7-10) methylpredn 2021- No 125mg 125 mg, U nivers isolone sod 10-20 Intravenou i ty of succ 20:00: 17:53 s, Q8H, [place] (SOLU-MEDRO 00 :24 First dose Me dical L) (after Branch injection last 125 mg modificati on) on [place] 10/20/21 at 1400, Until Discontinu ed, Routine furosemide 2021- No 40mg 40 mg, Univ ers (LASIX) 10-20 Slow IV ity of injection 18:00: 18:19 Push, [place] 40 mg 00 :00 ONCE, 1 Medical dose, On Branch [place] 10/20/21 at 1200, Routine pantoprazol 0 Yes 40mg 40 mg, Univ ers e 2-17 Oral, ity of (PROTONIX) 16:45: DAILY, [place] EC tablet 00 First dose Medi dayna 40 mg on [facility] Branch 10/20/21 at 1045, Until Discontinu ed, Routine pantoprazol 0 Yes 40mg 40 mg, Univ ers e 2-17 Oral, ity of (PROTONIX) 16:45: DAILY, [place] EC tablet 00 First dose Medi dayna 40 mg on [facility] Branch 10/20/21 at 1045, Until Discontinu ed, Routine alum-mag 2021-0 Yes 30mL 30 mL, Univers hydroxide-s 10-20 Oral, ity of imeth 16:37: Q6HPRNGarner, [place] (MAALOX 49 Starting Medical PLUS / on [facility] Branch MAG-AL 10/20/21 at PLUS) 1037, 200-200-20 Until mg/5 mL Discontinu suspension ed, 30 mL Routine, Indigestio n alum-mag 0 Yes 30mL 30 mL, Univers hydroxide-s 2-17 Oral, ity of imeth 16:37: Q6HPRN, [place] (MAALOX 49 Starting Medical PLUS / on [facility] Branch MAG-AL 10/20/21 at [facility]) 1037, 200-200-20 Until mg/5 mL Discontinu suspension ed, 30 mL Routine, Indigestio n acetaminoph 2021- No 650mg 650 mg, U nivers en 10-20 Oral, ity of (TYLENOL) 16:16: 17:01 Q6HPRN, [place] tablet 650 26 :51 Starting Medic al mg on [facility] 10/20/21 at 1016, Until Sun10/21/21 at 1101, Routine, Pain (scale 1-3) polyethylen 0 Yes 17g 17 g, Unive rs e glycol 2-17 Oral, ity of 3350 powder 15:00: DAILY, [place] 17 g 00 First dose Medical on [facility] 10/20/21 at 0900, Until Discontinu ed, Routine polyethylen 0 Yes 17g 17 g, Unive rs e glycol 2-17 Oral, ity of 3350 powder 15:00: DAILY, [place] 17 g 00 First dose Medical on [facility] 10/20/21 at 0900, Until Discontinu ed, Routine docusate 0 Yes 100mg 100 mg, Unive rs (COLACE) 2-17 Oral, BID, ity o f capsule 100 02:00: First dose [place] mg 00 on Sun [facility] 10/19/21 at Branch 2000, Until Discontinu ed, Routine docusate 2021-0 Yes 100mg 100 mg, Unive rs (COLACE) 2-17 Oral, BID, ity o f capsule 100 02:00: First dose [place] mg 00 on Sun [facility] 10/19/21 at Branch 2000, Until Discontinu ed, Routine hydralAZINE 0 Yes 10mg 10 mg, Univ ers (APRESOLINE 2-16 Slow IV ity o f ) injection 11:35: Push, [place] 10 mg 36 Q4HPRN, Medical Starting Branch on Sun10/19/21 at 0535, Until Discontinu ed, Routine, systolic BP >180
In dication: Hypertensi ve Emergency hydralAZINE Yes 10mg 10 mg, Univ ers (APRESOLINE 10-19 Slow IV ity o f ) injection 11:35: Push, [place] 10 mg 36 Q4HPRN, Medical Starting Branch on Sun10/19/21 at 0535, Until Discontinu ed, Routine, systolic BP >180
In dication: Hypertensi ve Emergency haloperidol 2021- No 5mg 5 mg, Slow Univers lactate 10-19 IV Push, ity of (HALDOL) 08:42: 08:44 ONCE, 1 [place] injection 5 00 :00 dose, On Medi dayna mg Sun Branch 10/19/21 at 0245, Routine pantoprazol No 40mg 40 mg, Uni vers e 10-18 Slow IV ity of (PROTONIX) 01:45: 16:42 Push, [place] injection 00 :17 Q24H, Medical 40 mg First dose Branch on Sun10/17/21 at 1945, Until Discontinu ed methylpredn No 125mg 125 mg, U nivers isolone sod 10-17 Intravenou i ty of succ 18:30: 18:10 s, Q6H, [place] (SOLU-MEDRO 00 :46 First dose Me dical L) on Sun Branch injection 10/17/21 at 125 mg 1230, Until Discontinu ed, Routine ziprasidone No 10mg 10 mg, Uni vers (GEODON) 10-17 Intramuscu ity of injection 18:30: 17:35 lar, ONCE, [place] 10 mg 00 :00 1 dose, On Medical Mon Branch 10/17/21 at 1230, Routine methylPREDN No 125mg 125 mg, U nivers ISolone 10-17 Slow IV ity of sodium 18:00: 18:28 [place], Q6H, [place] succinate 00 :52 First dose Medi dayna (SOLU-MEDRO on [facility] Branch L) 10/17/21 at injection 1200, 125 mg Until Discontinu ed, Routine thiamine 2021- No 100mg IV Univers (VITAMIN 10-17 Piggyback, ity of B1) 100 mg 17:45: 14:08 DAILY, 3 [place] in NaCl 00 :00 doses, Medical 0.9% (NS) First dose Bran ch piggyback on Sun10/17/21 at 1145, Last dose on Sun10/19/21 at 0900, 50 mL LORazepam 2021- No 1mg 1 mg, Slow U nivers (ATIVAN) 10-17 IV Push, ity of injection 1 17:00: 17:33 Q4HPRN, [place] mg 00 :38 Starting Medical on Sun10/17/21 at 1100, Until Sun10/19/21 at 1133, Routine, Anxiety, Agitation ipratropium 2021-0 Yes 3mL 3 mL, Unive rs -albuteroL 14 Inhalation ity of (DUONEB) 14:00: , Q4H, [place] 0.5 mg-3 00 First dose Medic al mg(2.5 mg on [facility] base)/3 mL 10/17/21 at nebulizer 0800, solution 3 Until mL Discontinu ed, Routine ipratropium 2021-0 Yes 3mL 3 mL, Unive rs -albuteroL 14 Inhalation ity of (DUONEB) 14:00: , Q4H, [place] 0.5 mg-3 00 First dose Medic al mg(2.5 mg on [facility] base)/3 mL 10/17/21 at nebulizer 0800, solution 3 Until mL Discontinu ed, Routine lidocaine 2021- No 5mL 5 mL, Univer s 1% (PF) 10-17 Subcutaneo ity o f (XYLOCAINE) 13:45: 13:45 , ONCE, [place] injection 5 00 :00 1 dose, On Me dical mL Sun10/17/21 at 0745, Routine NaCl 0.9% 2021-0 Yes 10mL 10 mL, Univer s (NS) -14 Slow IV ity of injection 13:27: Push, PRN, [place] 10 mL 33 Starting Medical on Sun10/17/21 at 0727, Until Discontinu ed, Routine, line maintenanc e NaCl 0.9% Yes 10mL 10 mL, Univer s (NS) 10-17 Slow IV ity of injection 13:27: [place], PRN, [place] 10 mL 33 Starting Medical on [facility] 10/17/21 at 0727, Until Discontinu ed, Routine, line maintenanc e haloperidol 2021- No 5mg 5 mg, Slow Univers lactate 10-17 IV Push, ity of (HALDOL) 04:00: 03:03 ONCE, 1 [place] injection 5 00 :00 dose, On Medi dayna mg [facility] 10/16/21 at 2200, Routine busPIRone Yes 5mg 5 mg, Univers (BUSPAR) 2-14 Oral, BID, ity o f tablet 5 mg 02:00: First dose [place] 00 on [facility] 10/16/21 at [employer] 1999, Until Discontinu ed, Routine busPIRone Yes 5mg 5 mg, Univers (BUSPAR) 2-14 Oral, BID, ity o f tablet 5 mg 02:00: First dose [place] 00 on [facility] 10/16/21 at [employer] 1999, Until Discontinu ed, Routine methylpredn No 60mg 60 mg, Uni vers isolone sod 10-16 Slow IV ity of succ 23:00: 17:25 Push, Q8H, [place] (SOLU-MEDRO 00 :30 First dose Me dical L) on [facility] injection 10/16/21 at 60 mg 1700, Until Discontinu ed, Routine HYDROcodone No 1{tbl} 1 tablet, Univers -acetaminop 10-16 Oral, ity of hen (NORCO 19:49: 17:01 Q6HPRN, José Miguel as 5) 5-325 mg 46 :51 Starting Medi dayna tablet 1 on [facility] tablet 10/16/21 at 1349, Until 10/21/21 at 1101, Routine, Pain (scale 4-6) cefTRIAXone 2021- No 1000mg 1,000 mg, Univers (ROCEPHIN) 10-16 IV ity of 1,000 mg in 18:30: 18:56 Piggyback, [place] NaCl 0.9% 00 :00 Q24H ABX, Medic al (NS) 50 mL 5 doses, Branc h MINI-BAG First dose on 10/16/21 at 1230, Last dose on Nicole 10/20/21 at 1230, Administer over 30 Minutes, 50 mL
Reas on for Anti-Infec tive: Documented Infection< br>Documen britney Infection Site: Respirator y
Durat ion of Therapy: Other (see Comments) azithromyci 2021- No 500mg 500 mg, IV Univers n 10-16 Piggyback, ity of (ZITHROMAX) 18:30: 19:16 Q24H ABX, [place] 500 mg in 00 :00 3 doses, Medica l NaCl 0.9% First dose Bran ch (NS) 250 mL on Sun VIAL-MATE 10/16/21 at IV 1230, Last piggyback dose on 10/18/21 at 1230, Administer over 60 Minutes, 250 mL
Reas on for Anti-Infec tive: Documented Infection& lt;br>Docu mented Infection Site: Respirator y
Durat ion of Therapy: Other (see Comments) dexMEDEtomi 2021- No .2ug/kg 0.2-1.5 Univers dine 400 10-16 /h mcg/kg/hr ity o f mcg in 0.9 01:46: 16:42 ?100 kg José Miguel as % NaCl 100 06 :17 (5-37.5 Medica l mL mL/hr), IV Branch (PRECEDEX) Infusion, RTU IV TITRATE, infusion Sedation-R ASS score (0 to -1), Starting on 10/15/21 at 1946
In itiate infusion at 0.2 mcg/kg/hr and titrate by 0.1 mcg/kg/hr every 30 minutes to goal sedation score. Maximum dose = 1.5 mcg/kg/hr. If goal not maintained at maximum allowed dose, contact prescriber .
LORazepam 2021- No .5mg 0.5 mg, Univ ers (ATIVAN) 10-15 Slow IV ity of injection 21:43: 16:47 Push, [place] 0.5 mg 49 :31 [id number], Medical Starting Branch on 10/15/21 at 1543, Until 10/17/21 at 1047, Routine, Anxiety iopamidol 2021- No [id number] 100mL 100 mL, Univers (ISOVUE 10-15 Intravenou ity o f 370-500 mL) 20:30: 19:21 s, ONCE, 1 [place] injection 00 :00 dose, On Medica l 100 mL Sat Branch 10/15/21 at 1430, Routine enoxaparin No 40mg 40 mg, Univ ers (LOVENOX) 10-15 Subcutaneo ity of injection 17:15: 16:42 [place], Q24H, [place] 40 mg 00 :18 First dose Medical on Sat Branch 10/15/21 at 1115, Until Discontinu ed, Routine levoFLOXaci No 750mg 750 mg, IV Univers n in D5W 10-15 Piggyback, ity of (LEVAQUIN) 17:15: 17:25 Q24H ABX, [place] 750 mg/150 00 :46 First dose Med ical mL on Sat Branch Piggyback 10/15/21 at 750 mg 1115, Until Discontinu ed, Administer over 90 Minutes, 150 mL
Reas on for Anti-Infec tive: Empiric Therapy for Suspected Infection< br>Empiric Therapy Site: Respirator y
Durat ion of therapy: 72 hours furosemide No 20mg 20 mg, IV U nivers (LASIX) 10-15 Push, ity of injection 14:30: 13:38 ONCE, 1 [place] 20 mg 00 :00 dose, On Medical Sat Branch 10/15/21 at 0830, Routine calcium No 1g 1 g, IV Univer s gluconate 1 10-15 Infusion, it y of g in NaCl 14:15: 13:37 ONCE, 1 [place] 50 mL 00 :00 dose, On Medical (ISO-OSM) Sat Branch RTU IV 10/15/21 at infusion 1 0815, g Routine insulin No 10U 10 Units, Univ ers regular 10-15 IV Push, ity of human 14:15: 13:37 ONCE, 1 [place] (HUMULIN R) 00 :00 dose, On Medi dayna injection Sat Branch 10 Units 10/15/21 at 0815, Routine dextrose 50 2021- No 50mL 50 mL, Uni vers % in water 10-15 Slow IV ity o f (D50W) 14:15: 13:37 Push, [place] injection 00 :00 ONCE, 1 Medical 50 mL dose, On Branch 10/15/21 at 0815, Routine heparin 2021- No 5000U 5,000 Univers (porcine) 10-15 Units, ity of injection 12:00: 16:12 Subcutaneo [place] 5,000 Units 00 :17 us, Q8H, Medi dayna First dose Branch on 10/15/21 at 0600, Until Discontinu ed, Routine vancomycin 2021- No 15mg/kg 1,500 mg Univers 1500 mg in 10-15 (15 mg/kg ity of NS 500 mL 10:00: 16:12 ?100 kg), [place] IV 00 :17 IV Medical Piggyback Piggyback, [facility] RTU 1,500 Q12H ABX, mg First dose on 10/15/21 at 0400, Until Discontinu ed, Administer over 90 Minutes
Reason for Anti-Infec tive: Documented Infection< br>Documen britney Infection Site: Blood
D uration of Therapy: 7 days ceFEPIme 2021- No 1000mg 1,000 mg, U nivers (MAXIPIME) 10-15 IV ity of 1,000 mg in 09:15: 16:12 Piggyback, [place] NaCl 0.9% 00 :17 Q12H ABX, Medic al (NS) 50 mL First dose [facility] MINI-BAG on 10/15/21 at 0315, Until Discontinu ed, Administer over 30 Minutes, 50 mL
Reas on for Anti-Infec tive: Documented Infection< br>Documen britney Infection Site: Blood
D uration of Therapy: 7 days ipratropium 2022-0 Yes 3mL 3 mL, Unive rs -albuteroL 2-12 Inhalation ity of (DUONEB) 08:07: , QIDPRN [place] 0.5 mg-3 12 Starting Medical mg(2.5 mg on Sat Branch base)/3 mL 10/15/21 at nebulizer 0207, solution 3 Until mL Discontinu ed, Routine, Wheezing, Shortness of Breath, Bronchospa sm ipratropium 2021-0 Yes 3mL 3 mL, Unive rs -albuteroL 2-12 Inhalation ity of (DUONEB) 08:07: , QIDPRN, [place] 0.5 mg-3 12 Starting Medical mg(2.5 mg on Sat Branch base)/3 mL 10/15/21 at nebulizer 0207, solution 3 Until mL Discontinu ed, Routine, Wheezing, Shortness of Breath, Bronchospa sm morpHINE 2021-0 2021- No 4mg 4 mg, Slow Un guillermina injection 4 10-1516 IV Push, ity of mg 08:04: 17:33 Q4HPRN, [place] 38 :44 Starting Medical on Sat Branch 10/15/21 at 0204, Until 10/19/21 at 1133, Routine, Pain (scale 7-10) lurasidone 0 Yes Take by Uni vers HCl (LATUDA 7-17 mouth. ity of ORAL) 10:16: [place] 57 Medical Branch betamethaso 0 Yes SMILEY EXT AA Univers ne valerate 5-24 BID ity of 0.1 % 00:00: [place] ointment 00 Medical Branch triamterene Yes TK 1 C PO U nivers -hydrochlor 5-24 QAM ity of othiazide 00:00: [place] 37.5-25 mg 00 Medical per capsule Branch betamethaso Yes SMILEY EXT AA Univers ne valerate 5-24 BID ity of 0.1 % 00:00: [place] ointment 00 Medical Branch triamterene Yes TK 1 C PO U nivers -hydrochlor 5-24 QAM ity of othiazide 00:00: [place] 37.5-25 mg 00 Medical per capsule Branch betamethaso Yes SMILEY EXT AA Univers ne valerate 5-24 BID ity of 0.1 % 00:00: [place] ointment 00 Medical Branch triamterene Yes TK 1 C PO U nivers -hydrochlor 5-24 QAM ity of othiazide 00:00: [place] 37.5-25 mg 00 Medical per capsule Branch betamethaso Yes SMILEY EXT AA Univers ne valerate 5-24 BID ity of 0.1 % 00:00: ointment Medical Branch betamethaso Yes SMILEY EXT AA Univers ne valerate 5-24 BID ity of 0.1 % 00:00: [place] ointment 00 Medical Branch triamterene Yes TK 1 C PO U nivers -hydrochlor 5-24 QAM ity of othiazide 00:00: 37.5-25 mg 00 Medical per capsule Branch triamterene Yes TK 1 C PO U nivers -hydrochlor 5-24 QAM ity of othiazide 00:00: 37.5-25 mg 00 Medical per capsule Branch DEXILANT 60 Yes TK 1 C PO U nivers mg capsule 9-28 QD ity of 00:00: Medical Branch DEXILANT 60 Yes TK 1 C PO U nivers mg capsule 9-28 QD ity of 00:00: Medical Branch DEXILANT 60 Yes TK 1 C PO U nivers mg capsule 9-28 QD ity of 00:00: Medical Branch DEXILANT 60 Yes TK 1 C PO U nivers mg capsule 9-28 QD ity of 00:00: Medical Branch DEXILANT 60 Yes TK 1 C PO U nivers mg capsule 9-28 QD ity of 00:00: Medical Branch proMETHazin Yes TK 1 T PO U nivers e 25 mg 3-29 Q 12 H PRN ity of tablet 00:00: FOR Medical Branch proMETHazin Yes TK 1 T PO U nivers e 25 mg 3-29 Q 12 H PRN ity of tablet 00:00: FOR Medical Branch proMETHazin Yes TK 1 T PO U nivers e 25 mg 3-29 Q 12 H PRN ity of tablet 00:00: FOR 30 Medical Branch proMETHazin Yes TK 1 T PO U nivers e 25 mg 3-29 Q 12 H PRN ity of tablet 00:00: FOR 30 Medical Branch proMETHazin Yes TK 1 T PO U nivers e 25 mg 3-29 Q 12 H PRN ity of tablet 00:00: FOR 30 Medical Branch amLODIPine Yes TK 1 T PO Un guillermina 5 mg tablet 3-21 Q NIGHTLY ity of 00:00: Medical Branch amLODIPine Yes TK 1 T PO Un guillermina 5 mg tablet 3-21 Q NIGHTLY ity of 00:00: Medical Branch amLODIPine Yes TK 1 T PO Un guillermina 5 mg tablet 3-21 Q NIGHTLY ity of 00:00: Medical Branch amLODIPine Yes TK 1 T PO Un guillermina 5 mg tablet 3-21 Q NIGHTLY ity of 00:00: Medical Branch amLODIPine Yes TK 1 T PO Un guillermina 5 mg tablet 3-21 Q NIGHTLY ity of 00:00: [facility] Branch HYDROcodone Yes 1{tbl} Take 1 Un guillermina -acetaminop 2-08 tablet by ity of hen 10-325 00:00: mouth. [place] mg tablet 00 Medical Branch HYDROcodone 2021- No 1{tbl} Take 1 U nivers -acetaminop 2-08 02-21 tablet by it y of hen 10-325 00:00: 00:00 [place]. [place] mg tablet 00 :00 Medical Branch HYDROcodone 2021- No 1{tbl} Take 1 U nivers -acetaminop 2-08 02-21 tablet by it y of hen 10-325 00:00: 00:00 [place]. [place] mg tablet 00 :00 Medical Branch betamethaso Yes [id number] Apply to [facility] ne 2-13 area(s) ity of dipropionat 00:00: two (2) José Miguel as e 00 times Medical (DIPROLENE) daily. Branch 0.05 % cream betamethaso Yes [id number] Apply to [facility] ne 2-13 area(s) ity of dipropionat 00:00: two (2) José Miguel as e 00 times Medical (DIPROLENE) daily. Branch 0.05 % cream betamethaso 2013-0 Yes [id number] Apply to [facility] 2-13 area(s) ity of dipropionat 00:00: two (2) José Miguel as e 00 times Medical (DIPROLENE) daily. Branch 0.05 % cream betamethaso 2013-0 Yes [id number] Apply to [facility] 2-13 area(s) ity of dipropionat 00:00: two (2) José Miguel as e 00 times Medical (DIPROLENE) daily. Branch 0.05 % cream betamethaso 2013-0 Yes [id number] Apply to [facility] 2-13 area(s) ity of dipropionat 00:00: two (2) José Miguel as e 00 times Medical (DIPROLENE) daily. Branch 0.05 % cream Immunizations Ordered Filled Immunization Date Status Comments [facility] e Immunization Name Name SARS-COV-2 COVID-19 2021-03-03 Completed Unive rsity of MODERNA VACCINE 00:00:00 [facility] SARS-COV-2 COVID-19 2021-03-03 Completed Unive rsity of MODERNA VACCINE 00:00:00 [facility] SARS-COV-2 COVID-19 2021-03-03 Completed Unive rsity of MODERNA VACCINE 00:00:00 [facility] SARS-COV-2 COVID-19 2021-03-03 Completed Unive rsity of MODERNA VACCINE 00:00:00 [facility] SARS-COV-2 COVID-19 2021-02-01 Completed Unive rsity of MODERNA VACCINE 00:00:00 [facility] SARS-COV-2 COVID-19 2021-02-01 Completed Unive rsity of MODERNA VACCINE 00:00:00 [facility] SARS-COV-2 COVID-19 2021-02-01 Completed Unive rsity of MODERNA VACCINE 00:00:00 [facility] SARS-COV-2 COVID-19 2021-02-01 Completed Unive rsity of MODERNA VACCINE 00:00:00 [facility] Influenza Virus 2007-07-02 Completed Universit y of Vaccine 00:00:00 [facility] Influenza Virus 2007-07-02 Completed Universit y of Vaccine 00:00:00 [facility] Branch Influenza Virus 2007-07-02 Completed Universit y of Vaccine 00:00:00 [place] [facility] Influenza Virus 2007-07-02 Completed Universit y of Vaccine 00:00:00 [place] [facility] Influenza Virus 2007-07-02 Completed Universit y of Vaccine 00:00:00 [facility] Vital Signs Vital Name Observation Time Observation Value Comments Source Systolic blood 2021-10-24 17:05:00 143 mm[Hg] Univer sity of pressure [place] [facility] Diastolic blood 2021-10-24 17:05:00 90 mm[Hg] Unive rsity of pressure [place] [facility] Heart rate 2021-10-24 17:05:00 103 /min Universi ty of [place] [facility] Body temperature 2021-10-24 17:05:00 36.22 Carleen Univ ersity of [place] [facility] Respiratory rate 2021-10-24 17:05:00 18 /min Univ ersity of [place] [facility] Oxygen saturation in 2021-10-24 17:05:00 95 /min University of Arterial blood by [place] [employer] dayna Pulse oximetry Branch Body weight 2021-10-22 10:08:00 71.215 kg bed scale Universi ty of [place] [facility] BMI 2021-10-22 10:08:00 28.72 kg/m2 Universi ty of [place] [facility] Body height 2021-10-17 14:00:00 157.5 cm Universi ty of [place] [facility] Systolic blood 2021-10-21 15:36:00 129 mm[Hg] Univer sity of pressure [place] [facility] Diastolic blood 2021-10-21 15:36:00 82 mm[Hg] Unive rsity of pressure [place] [facility] Heart rate 2021-10-21 15:36:00 100 /min Universi ty of [place] [facility] Respiratory rate 2021-10-21 15:36:00 20 /min Univ ersity of [place] [facility] Oxygen saturation in 2021-10-21 15:36:00 100 /min University of Arterial blood by [place] c-LEcta Pulse oximetry Branch Body temperature 2021-10-21 13:07:00 36.83 Carleen Univ ersity of [place] [facility] Body height 2021-10-17 14:00:00 157.5 cm Universi ty of [place] [facility] Body weight 2021-10-17 14:00:00 99.791 kg [facility] BMI 2021-10-17 14:00:00 28.72 kg/m2 [facility] Procedures Procedure Date / Time Performing Clinician Source Performed EXTERNAL PROVIDER - 2021-11-03 06:01:00 Doctor Unassigned, [facility] [place] [facility] RADIOLOGY XR CHEST 1 2021-10-24 18:45:48 Abu Malilewis [facility] XR CHEST 1 2021-10-24 18:45:48 Abu Sher [facility] BASIC METABOLIC PANEL 2021-10-24 12:36:00 Renato [facility] (NA, K, CL, CO2, GLUCOSE, Medica l Branch BUN, CREATININE, CA) CBC WITHOUT DIFF 2021-10-24 12:36:[address] [facility] BASIC METABOLIC PANEL 2021-10-24 12:36:00 Renato [facility] (NA, K, CL, CO2, GLUCOSE, Medica l Branch BUN, CREATININE, CA) CBC WITHOUT DIFF 2021-10-24 12:36:[address] [facility] XR CHEST 1 2021-10-22 15:58:26 Abu Sher [facility] XR CHEST 1 2021-10-22 15:58:26 Sunday Olivarez [facility] MAGNESIUM 2021-10-22 10:47:00 Zelda Rose [facility] BASIC METABOLIC PANEL 2021-10-22 10:47:00 Zelda Rose [facility] (NA, K, CL, CO2, GLUCOSE, Medica l Branch BUN, CREATININE, CA) CBC WITH DIFF 2021-10-22 10:47:00 Zelda Rose [facility] MAGNESIUM 2021-10-22 10:47:00 Zelda Rose [facility] BASIC METABOLIC PANEL 2021-10-22 10:47:00 Zelda Rose [facility] (NA, K, CL, CO2, GLUCOSE, Medica l Branch BUN, CREATININE, CA) CBC WITH DIFF 2021-10-22 10:47:00 Zelda Rose o f [facility] XR CHEST 1 VW 2021-10-21 22:10:00 Abu MaliAnaya [facility] XR CHEST 1 VW 2021-10-21 22:10:00 Sunday Samson [facility] AC PANEL 20 + LACTIC ACID 2021-10-21 20:28:00 Abu Mali [facility] AC PANEL 20 + LACTIC ACID 2021-10-21 20:28:00 Sunday [facility] CYTO BAL 2021-10-21 18:49:00 ki [facility] BODY FLUID DIRECT COUNT 2021-10-21 18:47:00 Anaya Kline [facility] BODY FLUID DIRECT COUNT 2021-10-21 18:47:00 Sunday Olivarez [facility] AFB CULTURE 2021-10-21 18:46:00 [facility] FUNGUS (ROUTINE) CULTURE 2021-10-21 18:46:00 [facility] MYCOBACTERIUM 2021-10-21 18:46:00 [facility] TUBERCULOSIS COMPLEX PCR [facility] RESPIRATORY PANEL BY PCR 2021-10-21 18:46:00 [facility] AF[facility] CULTURE 2021-10-21 18:46:00 [facility] FUNGUS (ROUTINE) CULTURE 2021-10-21 18:46:00 [facility] MYCOBACTERIUM 2021-10-21 18:46:00 [facility] TUBERCULOSIS COMPLEX PCR [facility] RESPIRATORY PANEL BY PCR 2021-10-21 18:46:00 [facility] BASIC METABOLIC PANEL 2021-10-21 18:44:00 Sunday Samson [facility] (NA, K, CL, CO2, GLUCOSE, Medica l Branch BUN, CREATININE, CA) BASIC METABOLIC PANEL 2021-10-21 18:44:00 Abki Olivarez [facility]ina [facility] (NA, K, CL, CO2, GLUCOSE, Medica l Branch BUN, CREATININE, CA) CBC WITH DIFF 2021-10-21 18:41:00 Abu Anaya Olivarez [facility] PROTHROMBIN TIME / INR 2021-10-21 18:41:00 Abki [facility] FIB[facility] 2021-10-21 18:41:00 Abu Sher Aanya [facility] CBC WITH DIFF 2021-10-21 18:41:00 Abu Anaya Olivarez [facility] PROTHROMBIN TIME / INR 2021-10-21 18:41:00 [facility]ki [facility] FIBRIN[facility]EN 2021-10-21 18:41:00 Abu Sher [facility] ANTI-NUCLEAR ANTIBODY 2021-10-21 18:41:00 Abu Anaya Olivarez [facility] [place] TIME OR 2021-10-21 18:18:06 AbAnaya Dover [facility] (NON-REPORTABLE) [facility] [place] TIME OR 2021-10-21 18:18:06 Sunday Olivarez [facility] (NON-REPORTABLE) [facility] FLEXIBLE BRONCHOSCOPY 2021-10-21 16:21:00 AbAnaya [facility] FLEXIBLE BRONCHOSCOPY 2021-10-21 16:21:00 AbAnaya Dover [facility] XR CHEST 1 VW 2021-10-20 11:13:00 Abu Anaya Olivarez [facility] XR CHEST 1 VW 2021-10-20 11:13:00 Anaya Kline [facility] CBC WITH DIFF 2021-10-20 10:30:00 Maggie Morgan [facility] CBC WITH DIFF 2021-10-20 10:30:00 Maggie Morgan [facility] URIC ACID 2021-10-20 10:29:00 [facility] 2021-10-20 10:29:00 Maggie Morgan [facility] (NA, K, CL, CO2, GLUCOSE, Medica l Branch BUN, CREATININE, CA) URIC ACID 2021-10-20 10:29:00 Abu [facility] BASIC METABOLIC PANEL 2021-10-20 10:29:00 Maggie Morgan [facility] (NA, K, CL, CO2, GLUCOSE, Medica l Branch BUN, CREATININE, CA) XR CHEST 1 VW 2021-10-19 18:11:14 Abu [facility] XR CHEST 1 VW 2021-10-19 18:11:14 [place] [facility] CBC WITH DIFF 2021-10-19 09:05:00 Maggie Morgan [facility] CBC WITH DIFF 2021-10-19 09:05:00 Maggie Morgan [facility] MAGNESIUM 2021-10-19 09:04:[facility] 2021-10-19 09:04:00 Maggie Morgan [facility] (NA, K, CL, CO2, GLUCOSE, Medica l Branch BUN, CREATININE, CA) MAGNESIUM 2021-10-19 09:04:00 [facility] MET[facility]OLIC PANEL 2021-10-19 09:04:00 Maggie Morgan [facility] (NA, K, CL, CO2, GLUCOSE, Medica l Branch BUN, CREATININE, CA) POCT GLUCOSE (AUTOMATED) 2021-10-19 02:24:00 Blanca Talavera [facility] POCT GLUCOSE (AUTOMATED) 2021-10-19 02:24:00 Blanca Talavera [facility] COVID-19 (MOLECULAR 2021-10-18 19:48:00 Vale Jones [facility] NUCLEIC ACID AMPLIFICATION) LAB ONLY COVID 2021-10-18 19:48:00 Robert [facility] INTERPRETATION Medical Branch COVID-19 (MOLECULAR 2021-10-18 19:48:00 Vale Jones [facility] TESTING [facility] NUCLEIC ACID AMPLIFICATION) LAB ONLY COVID 2021-10-18 19:48:00 Robert [facility] INTERPRETATION [facility] ANGIOTENSIN CONVERTING 2021-10-18 19:45:00 [facility]HE[facility] 2021-10-18 19:45:00 [facility] ANCA SCREEN 2021-10-18 19:45:00 Robert [facility] ANGIOTENSIN CONVERTING 2021-10-18 19:45:00 Vale [facility] RHEUMAT[facility] FACTOR 2021-10-18 19:45:00 Amadou Putnam [facility] ANCA SCREEN 2021-10-18 19:45:00 Robert [facility] XR CHEST 1 VW 2021-10-18 12:37:00 Sunday Olivarez [facility] XR CHEST 1 VW 2021-10-18 12:37:00 Sunday Olivarez [facility] PHOSPHORUS 2021-10-18 09:30:00 Zelda Rose [facility] MAGNESIUM 2021-10-18 09:30:00 Rose [facility] BASIC METABOLIC PANEL 2021-10-18 09:30:00 Zelda Rose [facility] (NA, K, CL, CO2, GLUCOSE, Medica l Branch BUN, CREATININE, CA) CBC WITH DIFF 2021-10-18 09:30:00 Rose [facility] GLYCOSYLATED HEMOGLOBIN 2021-10-18 09:30:00 Maggie Morgan [facility] (A[facility]) Medical Branch PHOSPHORUS 2021-10-18 09:30:00 Zelda Rose [facility] MAGNESIUM 2021-10-18 09:30:00 Rose [facility] BASIC METABOLIC PANEL 2021-10-18 09:30:00 Zelda Rose [facility] (NA, K, CL, CO2, GLUCOSE, Medica l Branch BUN, CREATININE, CA) CBC WITH DIFF 2021-10-18 09:30:00 Zelda Rose [facility] GLYCOSYLATED HEMOGLOBIN 2021-10-18 09:30:00 Maggie Morgan [facility] (A1C) [facility] BASIC METABOLIC PANEL 2021-10-18 00:43:00 Abu [facility] (NA, K, CL, CO2, GLUCOSE, Medica l Branch BUN, CREATININE, CA) BASIC METABOLIC PANEL 2021-10-18 00:43:00 Abu Ather, [facility] (NA, K, CL, CO2, GLUCOSE, Medica l Branch BUN, CREATININE, CA) N-TERMINAL PRO-BNP 2021-10-17 21:27:00 [facility] PRO-BNP 2021-10-17 21:27:00 Josie [facility] TRANSTHORACIC ECHO (TTE) 2021-10-17 17:05:00 Bk [facility] TRANSTHORACIC ECHO (TTE) 2021-10-17 17:05:00 Bk [facility] XR CHEST 1 2021-10-17 17:00:50 Josie [facility] XR CHEST 1 2021-10-17 17:00:50 Josie [facility] XR CHEST 1 2021-10-17 14:17:12 Josie [facility] XR CHEST 1 2021-10-17 14:17:12 Josie [facility] ABG+COOX+NA+K+GLU+CA2+ 2021-10-17 13:25:00 [facility] ABG+COOX+NA+K+GLU+CA2+ 2021-10-17 13:25:00 Shadi Rodriguez [facility] PHOSPHORUS 2021-10-17 10:28:00 Josie [facility] MAGNESIUM 2021-10-17 10:28:00 Ahmed, [facility] BASIC METABOLIC PANEL 2021-10-17 10:28:00 leighann, [facility] (NA, K, CL, CO2, GLUCOSE, Medica l Branch BUN, CREATININE, CA) SEDIMENTATION RATE 2021-10-17 10:28:00 Rodriguez [facility] CBC WITH DIFF 2021-10-17 10:28:00 Ahmed, [facility] ANTI-NUCLEAR ANTIBODY 2021-10-17 10:28:00 Rodriguez [facility] ANTI-NUCLEAR ANTIBODY 2021-10-17 10:28:00 Rodriguez [facility] ANTI-DOUBLE STRANDED DNA 2021-10-17 10:28:00 Amadou Putnam [facility] HIV 1/2 AG-AB WITH REFLEX 2021-10-17 10:28:00 Anyaa Kline [facility] ANTI-NUCLEAR 2021-10-17 10:28:00 Jennifer [facility] ANTIBODY-PATHOLOGIST Medical [facility] INTERPRETATION PHOSPHORUS 2021-10-17 10:28:00 Ahmed, [facility] MAGNESIUM 2021-10-17 10:28:00 Ahmed, [facility] BASIC METABOLIC PANEL 2021-10-17 10:28:00 leighann [facility] (NA, K, CL, CO2, GLUCOSE, Medica l Branch BUN, CREATININE, CA) SEDIMENTATION RATE 2021-10-17 10:28:00 Rodriguez [facility] CBC WITH DIFF 2021-10-17 10:28:00 Josie, [facility] ANTI-NUCLEAR ANTIBODY 2021-10-17 10:28:00 Rodriguez [facility] ANTI-NUCLEAR ANTIBODY 2021-10-17 10:28:00 Rodriguez, [facility] TITER [facility] ANTI-DOUBLE STRANDED DNA 2021-10-17 10:28:00 Amadou Putnam [facility] [place] HIV 1/2 AG-AB WITH REFLEX 2021-10-17 10:28:00 Anaya Kline [facility] ANTI-NUCLEAR 2021-10-17 10:28:00 Shadi Rodriguez [facility] ANTIBODY-PATHOLOGIST Medical [facility] INTERPRETATION BLOOD CULTURE SCREEN 2021-10-16 17:40:00 [facility] 2021-10-16 17:40:00 Amadou Putnam Un [facility] XR CHEST 1 VW 2021-10-16 [facility]:56[facility] 2021-10-16 16:56:[facility] RESPIRATORY PANEL BY PCR 2021-10-16 14:46:00 Amadou Putnam [facility] [place] RESPIRATORY PANEL BY PCR 2021-10-16 14:46:00 Amadou Putnam [facility] PHOSPHORUS 2021-10-16 10:47:00 Josie [facility] MAGNESIUM 2021-10-16 10:47:00 Josie [facility] BASIC METABOLIC PANEL 2021-10-16 10:47:00 [facility] ([facility], K, CL, CO2, GLUCOSE, Medica l Branch BUN, CREATININE, CA) CBC WITH DIFF 2021-10-16 10:47:00 Josie [facility] AC PANEL 20 + LACTIC ACID 2021-10-16 10:47:00 Samir Galindo [facility] PHOSPHORUS 2021-10-16 10:47:00 Ahleighann [facility] MAGNESIUM 2021-10-16 10:47:00 Josie [facility] BASIC METABOLIC PANEL 2021-10-16 10:47:00 Josie [facility] [place] (NA, K, CL, CO2, GLUCOSE, Medica l Branch BUN, CREATININE, CA) CBC WITH DIFF 2021-10-16 10:47:00 Josie [facility] AC PANEL 20 + LACTIC ACID 2021-10-16 10:47:00 Samir Galindo [facility] C-REACTIVE PROTEIN 2021-10-15 22:38:00 Jennifer [facility] TROPONIN I 2021-10-15 22:38:00 Ilan [facility] BASIC METABOLIC PANEL 2021-10-15 22:38:00 Josie [facility] [place] (NA, K, CL, CO2, GLUCOSE, Medica l Branch BUN, CREATININE, CA) C-REACTIVE PROTEIN 2021-10-15 22:38:00 Rodriguez [facility] TROPONIN I 2021-10-15 22:38:00 Ilan [facility] BASIC METABOLIC PANEL 2021-10-15 22:38:00 [facility] (NA, K, CL, CO2, GLUCOSE, Medica l Branch BUN, CREATININE, CA) PNEUMOCOCCAL ANTIGEN 2021-10-15 21:49:00 [facility]TIGEN 2021-10-15 21:49:00 Josie [facility] LEGIONELLA URINARY 2021-10-15 21:48:00 Josie [facility] ANTIGEN [facility] LEGIONELLA URINARY 2021-10-15 21:48:00 Josie [facility] ANTIGEN [facility] CT ANGIOGRAM CHEST 2021-10-15 19:22:00 Anaya Kline [facility] CT ANGIOGRAM CHEST 2021-10-15 19:22:00 Anaya Kline [facility] TROPONIN I 2021-10-15 17:29:00 [facility] RAPID INFLUENZA A/B 2021-10-15 17:29:00 [facility] N-TERMINAL PRO-BNP 2021-10-15 17:29:00 Nicol Bourgeois [facility] PROCALCITONIN 2021-10-15 17:29:00 Vito Bourgeoisdaysi [facility] COVID-19 (MOLECULAR 2021-10-15 17:29:00 [facility]LE[facility]PLIFICATION) LAB ONLY COVID 2021-10-15 17:29:00 Bk [facility] TROPONIN I 2021-10-15 17:29:00 [facility] RAPID INFLUENZA A/B 2021-10-15 17:29:00 Bk [facility] N-TERMINAL PRO-BNP 2021-10-15 17:29:00 Bk [facility] PROCALCITONIN 2021-10-15 17:29:00 Bk [facility] COVID-19 (MOLECULAR 2021-10-15 17:29:00 Bk [facility] NUCLEIC ACID AMPLIFICATION) LAB ONLY COVID 2021-10-15 17:29:[address] [facility] COVID-19 (ID NOW RAPID 2021-10-15 13:03:00 Samir Galindo [facility] TESTING) Medical Branch LAB ONLY COVID 2021-10-15 13:03:00 Josie Samir [facility] Branch COVID-19 (ID NOW RAPID 2021-10-15 13:03:00 Samir Galindo [facility] TESTING) Medical Branch LAB ONLY COVID 2021-10-15 13:03:00 Samir Galindo [facility] XR CHEST 1 VW 2021-10-15 09:46:38 [facility] XR CHEST 1 VW 2021-10-15 09:46:38 [facility] MAGNESIUM 2021-10-15 08:16:00 Josie Samir [facility] BASIC METABOLIC PANEL 2021-10-15 08:16:00 Samir Galindo [facility] (NA, K, CL, CO2, GLUCOSE, Medica l Branch BUN, CREATININE, CA) PROCALCITONIN 2021-10-15 08:16:00 Ilan [facility] MAGNESIUM 2021-10-15 08:16:00 Josie [facility] BASIC METABOLIC PANEL 2021-10-15 08:16:00 Josie [facility] [place] (NA, K, CL, CO2, GLUCOSE, Medica l Branch BUN, CREATININE, CA) PROCALCITONIN 2021-10-15 08:16:00 Ilan [facility] ABG+COOX+NA+K+GLU+CA2+ 2021-10-15 07:24:00 Josie [facility] ABG+COOX+NA+K+GLU+CA2+ 2021-10-15 07:24:00 Josie [facility] TROPONIN I 2021-10-15 07:10:00 Ilan [facility] CBC WITH DIFF 2021-10-15 07:10:00 Josie [facility] TROPONIN I 2021-10-15 07:10:00 Ilan [facility] CBC WITH DIFF 2021-10-15 07:10:00 Josie [facility] MRSA / MSSA SCREEN BY 2021-10-15 07:09:00 Josie [facility] MRSA / MSSA SCREEN BY 2021-10-15 07:09:00 oJsie [facility] AUTHORIZATION FOR RELEASE 2021-06-09 05:01:00 Doctor Unassjael, [facility] [place] [facility] [employer] Encounters Start End Encounter Admission Attending Care Care Encounter Source Date/Time Date/Time Type Type Clinicians Facility Department ID 2021-11-03 2021-11-03 Orders Doctor MARISCAL [id number] Univers 00:00:00 00:00:00 Only Unassigned, BETH 350.1.13.10 ity of [place] [facility] 4.2.7.2.686 José Miguel as [id number] [place] [address] Branch 2021-10-25 2021-10-25 Transition SABINA Waters [id number] Univers 00:00:00 00:00:00 of Care Anyeri DOHERTY 350.1.13.10 i ty of [place] [phone] [facility] 403 Branch 2021-10-15 2021-10-24 [facility] [id number] Univers 00:23:00 17:53:00 FLASH ity of [facility] 2021-10-15 2021-10-24 Hospital Blanca Talavera [facility] 1.2.840.114 [id number] Univers 00:23:00 17:53:00 Encounter Samir Galindo HEALTH 350.1.13.10 ity of Shadi Rodriguez 4.2.7.2.686 Flash Aldana [id number] [facility] [address] [employer] ([facility]) 2021-10-21 2021-10-21 [facility] [id number] Univers 10:00:00 10:45:00 Atherah, HEALTH 350.1.13.10 i ty of [place] [id number] [facility] 020 Branch ([facility]) 2021-06-09 2021-06-09 Orders Doctor LOIDA 1.2.840.114 [id number] Univers 00:00:00 00:00:00 Only Unassigned, BETH 350.1.13.10 ity of [place] [facility] 4.2.7.2.686 José Miguel as [phone] [address] Results Test Description Test Time Test Comments Results Result Comments Source CYTO BAL 2021-10-24 21:38:57 Test Item Value Reference Range Interpretation Comme nts Case Report (test code = 9542948703) Non-Gynecologic Cytolog y ?Case: [id number] ?Authorizing Provider: ?Anaya Kline MD ? ? Collected: ? 10/21/2021 1249 ?Ordering Location: ? ? [facility] ?Received: ?10/21/2021 1257 ? Medicine/Surgery CLC 7B ?Pathologist: ? [place], Glenna Valero, ? Specimen: ? ?LUNG, LEFT UPPER LOBE, BRONCHOALVEOLAR LAVAGE ? Final Diagnosis (test code = u7nomRIiNKAxh2uiBZRkaWXjAhIgVaMuXzOxBr [facility] [id number]) AkZJcqyeKlERdqeWlcIPFrGOdtojMiQMQrxGGtL9Nq oklpDDjwOR0kHC6hgSvwuRKbsJMqBOGiMdFql2tza5 25hSFeh4kqEKRVjjfrxAc8tEhdP37ho8A2GfikY5mi MHSdCWesCHDmFPglfXNoFAe7DFScxLYrafOjNpTgGY YhmHFnyEL8NDOlWN7khunxEAyhTDdeSTLgnbH7NTWm rVUyF5YuARBkLM9byljoNNI6ZVxhPKQtNHH0RqXuJP Nmf5Frdvs8CzAueADdTOowzPEnhamqruRyZOUqdijb GJHfQnHxRHMQIdifMIFXAXNBZSQLSaROW9MRJgEVGj [file] MyO0rhZwZjrU1pkMimQyzeodS2VANzeu12 Final Diagnosis Comment (test code = a2rckKBcAVIklZL2YxEnGKW qi5cez7BpkKDfoDDtYZ [id number]) qpdVPvljPnna26uKB3vI54DG3lPNTqOpJ0HRWsluU6 Bsg5SIGzJBRysINwW829o5wcf7zbmzNeyBR6PZCtEZ MiI6IuEM1pCBMbiTVvQ72gbRNjDNH1ZTGaDRFmaWHq ZEKzKIO0KEGdpYFpO1rsMURnOL2adfyrLDohXVhpMI NqkSB4QNDxtFFlU9SxNVUbCRsnTFGrkku7BoCqVd2n eUTvtVvyHNufBNCzYMGbQVfdYYHnNeDoR03zTTByZM Opn4zjkB8huQo3PATgw29wbU7mRFLzvAxogYlfxUHr PSugqtSbwrQqSsJ5PHIfhoCtaWUvUL9nW5PwmDclE9 UwMbQSHUPeFUfro3UjEN3tAEQ6sGPmPiAvetR4kH8d mYJmzhWmMKEpKhLiK0HxFX9yCF1evMseutQgeWUwWC cznzNhZZCcdZioiHYgVmclEZQyM2VqEAOtlg5= Clinical Information (test code = 1. Pneumonia / covid / SARS [id number]) Gross Description (test code = e6jehPGyEHLjaNL4VfQtRTFkl4qmj8KknEFw cGFyXG 3931784106) fnmLLovcHfal17hOT0dD79VN5iSRHdMhC0BTVzkcD4 Bax2GYCcUPZtnLXmG086v3wcv7yqprAmvFH1URYfUH DjI9WpFJ1gESExuYTbO81ndRAeLMV1TEFrPZZdbVDn LXDrIBB6RUCglXFyV6rfPZIlLA8fiuetCYmeIUesHI CfvRD0JWLoxGVcC2VuJNOcGTgxOTJigzf6PaVpQy9g uOMjrOfzMGepTURvw5fyRYBkhQEiRHP2JGwebWSuZM KlBJIxPVv9HJTbLSqzoXKzDL1hfMweVmkgvDbry8Dy mBBuMCyeZALlKSVtVKmmWNHkH6FXVMUjUvErUwh1RH NpCUz1WEt8WD6MHsBmKBZnHtr2ABXzJaIwEJq6JEla CC6HHFA9YjF7JBElEjmsWJKcFhEzJCw1BJDyJTqgsI SnEMWkQMBgXXuuKNokqiNbPIElRY6jlGuscNYhjhhe wiNiDARiisndvhPaUGFareQOSI1uIGtDKrtmMHpGAg VkXNAQCXAhHK3ECFxaDuFGHnQZI0KFXmTJOUBZQErN FtWSKDamKJZoRjYyXXzuDnXiFkDkNYp8DOTfBoRsa3 rblTYmO6UdprHnYNDagVIgUFW2CRYaL8Tgp8MmQ3yj RCYoPvh3fTFtkbHaVAt5HDWjLmHwq6czuOFbLEJjCC WxbrUeTIOrc6ptVRDdRKiPjLQzd7KwjyDzexUaGKQj kGvwrdY0KIIcNi9gCX7qq2AilWLqvzWgDXYWWOPxvt fwm6jgn7Uiu7DbiP6uBKhcLcPeCktfHrWzNMhaURUp H9KeV9XfwoJ1s6lyjFnql3WxtFShNY1xxIFsoN== Disclaimer (test code = 9767861053) w7swfHOyCVCep5niEAHgrXJqJjHk MzNcZnRuYmpcdW SmMKlropIcKFeat7JoZ6DxAzIxUKdguxFdQPRdPxnp hrhrFPCgZDH6gaFsTWGiJRqnSFHsRMvoIp4mzJOjfX peSeTeMGQns4orkkTZMMuuCeZdQ662DSEdLIujd3ku b7TyXUWpyIUuv0O7INEWqkzsaYc4vKweY73xr2U2Qv etL8hnIWMpNAUbH6GvRK8pEZBgPqq7JDD4QMN2FSZo PCSdI3YoIC5qJWPdpOXyIRt7k0usgRcaNASoWMW0x7 nkSEheeoEkLS6xvs8rpMv5k1ehzrFvCGLqBKHtlEJV LTNdB8VmoTpcNy7sdDq3rPeeNcwhSFW5Jrf8OT2jqw 31pbj2cAraRMVudhjbSdK6OJbuZBAlgqbdAKp6DSam OYKbsPB6XRLlfZOnN9IwZPJtDE5uhzg7CVP5UEabSX XqYmA1UBUanOMgHZLrbKchUAylq042ZZT2IoJwPA9s C6Agm6J1pX6tfACcNLInbOSdHsPlETEooi3oeXPgPY ucp7JnVJS4iwW9qZCwaHRgUGCiRU08Ukiqk8XnBwva t5HqB88zsQD4ENirx3olRL9qRgD8hzMqIJggp6vylU 1eCkI8JKzaGI0yMJ4dLEMatP6smtapHOYbZcBxhbgo BATgbHbthhIvCx0syDiuTIH6RWtsF6iipH6lOxU2DZ lmD7vzeG3lKBt7UZanrGQ3NKHrcM4oBZ4qsroxz0ub DKfnLRehOPLcqvO3tpQ8MDKygDOjS0JwlJ3bVSIvNF 7yiwvoy4vzUDE5DMzaQYAbXRH2EuRfFGQek7Cthvm5 XbOpg1TqaATlOOjrI55zs562RPMihoXwF4aluZZmmd dbqRHpogpgYJbjbxU0URFqksQza8GuSJJqFTG2YYje XBixvHEbNXOxlBgpp8uyC7YfaCHlIEUxYOvtNELsZD ZzMjBcbGFuZzEwMzNcaGljaFxmMVxkYmNoXGYxXGxv [file] OjOXdcGTF0oA== Embedded Images (test code = 0348734269) [facility] [id number] 20:07:20 Test Item Value Reference Range Interpretation Comments SHIRA (test code = Negative Negative 8084484211) LUCILLE (test code = LUCILLE) Negative - No Anti-Nuclear Antibodies detected by IFA.Positive - SHIRA IFA screen performed with a 1:80 dilution in adults and a 1:40 dilution in pediatrics. Any SHIRA "Positive" will have titer performed and reported separately.Negative - No Anti-Nuclear Antibodies detected by IFA.Positive - SHIRA IFA screen performed with a 1:80 dilution in adults and a 1:40 dilution in pediatrics. Any SHIRA "Positive" will have titer performed and reported separately. Lab Interpretation (test Normal code = 00575-3) [facility] (NA, K, CL, CO2, GLUCOSE, BUN, CREATININE, CA)2021-10-24 13:05:02 Test Item Value Reference Range Interpretation Comments NA (test code = 134 mmol/L 135-145 L 6515329879) K (test code = 4.5 mmol/L 3.5-5.0 5739679860) CL (test code = 99 mmol/L 98-108 8616397566) CO2 TOTAL (test code = 30 mmol/L 23-31 4430046300) AGAP (test code = 2-16 5482387756) BUN (test code = 23 mg/dL 7-23 5588523713) GLUCOSE (test code = 118 mg/dL 70-110 H 1235085479) CREATININE (test code = 0.71 mg/dL 0.50-1.04 6203720155) CALCIUM (test code = 8.2 mg/dL 8.6-10.6 L 7506746924) eGFR (test code = mL/min/1.73m2 5343473230) LUCILLE (test code = LUCILLE) Association of Glomerular Filtration Rate (GFR) and Staging of Kidney Disease* + --+ --+ ------+| GFR (mL/min/1.73 m2) ?| With Kidney Damage ?| ?Without Kidney Damage+ --------+ --------+ +| ?>90 ?| ?Stage one ?| ? Normal ?+ ---+ ---+ -------+| ?60-89 ?| ?Stage two ?| ? Decreased GFR ? + --+ --+ ------+| ?30-59 ?| ?Stage three ?| ? Stage three ? + --+ --+ ------+| ?15-29 ?| ?Stage four ? | ? Stage four ?+ ---+ ---+ -------+| ?<15 (or dialysis) ? ?| ?Stage five ? | ? Stage five ?+ ---+ ---+ -------+ *Each stage assumes the associated GFR level has been in effect for at least three months. ?Stages 1 to 5, with or without kidney disease, indicate chronic kidney disease. Notes: Determination of stages one and two (with eGFR >59mL/min/1.73 m2) requires estimation of kidney damage for at least three months as defined by structural or functional abnormalities of the kidney, manifested by either:Pathological abnormalities or Markers of kidney damage (including abnormalities in the composition of the blood or urine or abnormalities in imaging tests). Lab Interpretation Abnormal (test code = 41821-0) [facility] METABOLIC PANEL (NA, K, CL, CO2, GLUCOSE, BUN, CREATININE, CA)2021-10-24 13:05:02 Test Item Value Reference Range Interpretation Comments NA (test code = 134 mmol/L 135-145 L 5254656595) K (test code = 4.5 mmol/L 3.5-5.0 7771507835) CL (test code = 99 mmol/L 98-108 6038299897) CO2 TOTAL (test code = 30 mmol/L 23-31 9407984388) AGAP (test code = 2-16 0570617453) BUN (test code = 23 mg/dL 7-23 4085308147) GLUCOSE (test code = 118 mg/dL 70-110 H 5289794875) CREATININE (test code = 0.71 mg/dL 0.50-1.04 1596111689) CALCIUM (test code = 8.2 mg/dL 8.6-10.6 L 2949566866) eGFR (test code = mL/min/1.73m2 4348391604) LUCILLE (test code = LUCILLE) Association of Glomerular Filtration Rate (GFR) and Staging of Kidney Disease* + --+ --+ ------+| GFR (mL/min/1.73 m2) ?| With Kidney Damage ?| ?Without Kidney Damage+ --------+ --------+ +| ?>90 ?| ?Stage one ?| ? Normal ?+ ---+ ---+ -------+| ?60-89 ?| ?Stage two ?| ? Decreased GFR ? + --+ --+ ------+| ?30-59 ?| ?Stage three ?| ? Stage three ? + --+ --+ ------+| ?15-29 ?| ?Stage four ? | ? Stage four ?+ ---+ ---+ -------+| ?<15 (or dialysis) ? ?| ?Stage five ? | ? Stage five ?+ ---+ ---+ -------+ *Each stage assumes the associated GFR level has been in effect for at least three months. ?Stages 1 to 5, with or without kidney disease, indicate chronic kidney disease. Notes: Determination of stages one and two (with eGFR >59mL/min/1.73 m2) requires estimation of kidney damage for at least three months as defined by structural or functional abnormalities of the kidney, manifested by either:Pathological abnormalities or Markers of kidney damage (including abnormalities in the composition of the blood or urine or abnormalities in imaging tests). Lab Interpretation Abnormal (test code = 81656-8) [facility] WITHOUT [id number] 12:51:39 Test Item Value Reference Range Interpretation Comments WBC (test code = 6690-2) See_Comment H [A utomated message] The system [employer] generated this result transmit britney reference range : 4.30 - 11.10 10*3/?L. The reference range was not used to interpret this result as normal/abnormal . RBC (test code = 789-8) See_Comment [Au tomated message] The system [employer] generated this result transmit britney reference range : 3.93 - 5.25 10* 6/?L. The reference r nicholas was not used to interpret this result as normal/abnormal . HGB (test code = 718-7) 11.5 g/dL 11.6-15.0 L HCT (test code = 4544-3) 35.2 % 35.7-45.2 L MCH (test code = 785-6) 27.9 pg 25.9-32.8 MCV (test code = 787-2) 85.4 fL 80.6-95.5 MCHC (test code = 786-4) 32.7 g/dL 31.6-35.1 PLT (test code = 777-3) See_Comment H [Au tomated message] The system [employer] generated this result transmit britney reference range : 166 - 358 10*3/?L. The reference range was not used to interpret this result as normal/abnormal . MPV (test code = 10.1 fL 9.5-12.9 42883-2) RDW-CV (test code = 14.2 % 12.0-15.5 788-0) RDW-SD (test code = 43.8 fL 39.0-49.9 30569-8) NRBC x10^3 (test code = See_Comment [Au tomated message] 7317849402) The system [employer] generated this result transmit britney reference range : 10*3/?L. The reference range was not used to interpret this result as normal/abnormal . NRBC/100 WBC (test code See_Comment [Au tomated message] = 9919012958) The system [facility] generated this result transmit britney reference range : 0.0 - 10.0 /100 WBC s. The reference r nicholas was not used to interpret this result as normal/abnormal . IPF % (test code = 9367047834) Lab Interpretation (test Abnormal code = 99072-4) [facility] WITHOUT [id number] 12:51:39 Test Item Value Reference Range Interpretation Comments WBC (test code = 6690-2) See_Comment H [A utomated message] The system [employer] generated this result transmit britney reference range : 4.30 - 11.10 10*3/?L. The reference range was not used to interpret this result as normal/abnormal . RBC (test code = 789-8) See_Comment [Au tomated message] The system [employer] generated this result transmit britney reference range : 3.93 - 5.25 10* 6/?L. The reference r nicholas was not used to interpret this result as normal/abnormal . HGB (test code = 718-7) 11.5 g/dL 11.6-15.0 L HCT (test code = 4544-3) 35.2 % 35.7-45.2 L MCH (test code = 785-6) 27.9 pg 25.9-32.8 MCV (test code = 787-2) 85.4 fL 80.6-95.5 MCHC (test code = 786-4) 32.7 g/dL 31.6-35.1 PLT (test code = 777-3) See_Comment H [Au tomated message] The system [employer] generated this result transmit britney reference range : 166 - 358 10*3/?L. The reference range was not used to interpret this result as normal/abnormal . MPV (test code = 10.1 fL 9.5-12.9 18344-4) RDW-CV (test code = 14.2 % 12.0-15.5 788-0) RDW-SD (test code = 43.8 fL 39.0-49.9 70337-0) NRBC x10^3 (test code = See_Comment [Au tomated message] 3776910306) The system [employer] generated this result transmit britney reference range : 10*3/?L. The reference range was not used to interpret this result as normal/abnormal . NRBC/100 WBC (test code See_Comment [Au tomated message] = 0484077590) The system [employer] generated this result transmit britney reference range : 0.0 - 10.0 /100 WBC s. The reference r nicholas was not used to interpret this result as normal/abnormal . IPF % (test code = 4816712671) Lab Interpretation (test Abnormal code = 54045-3) [facility]CT[facility] TUBERCULOSIS COMPLEX PCR 2021-10-23 16:23:29 Test Item Value Reference Range Interpretation Comments Mycobacterium Negative Negative tuberculosis DNA (test code = 81137-3) LUCILLE (test code = LUCILLE) Method performance specifications have not been established for specimens other than SPUTUM. Results for other tested specimen types should be interpreted based on clinical context. Lab Interpretation Normal (test code = 18203-6) [facility] StationMYCOBACTERIUM TUBERCULOSIS COMPLEX PCR 2021-10-23 16:23:29 Test Item Value Reference Range Interpretation Comments Mycobacterium Negative Negative tuberculosis DNA (test code = 36143-5) LUCILLE (test code = LUCILLE) Method performance specifications have not been established for specimens other than SPUTUM. Results for other tested specimen types should be interpreted based on clinical context. Lab Interpretation Normal (test code = 33795-1) [facility] Station[facility]PIRATORY PANEL BY [id number] 20:36:40 Test Item Value Reference Range Interpretation Comments Adenovirus (test code = Negative Negative 39397-0) Coronavirus HKU1 (test Negative Negative code = 00704-4) Coronavirus NL63 (test Negative Negative code = 34315-0) Coronavirus 229E (test Negative Negative code = 44852-8) Coronavirus OC43 (test Negative Negative code = 22049-5) Human Metapneumovirus Negative Negative (test code = 35067-4) Human Negative Negative Rhinovirus/Enterovirus (test code = 33804-5) Influenza A (test code = Negative Negative 88541-8) Influenza B (test code = Negative Negative 29031-6) Parainfluenza Virus 1 Negative Negative (test code = 68488-1) Parainfluenza Virus 2 Negative Negative (test code = 55655-2) Parainfluenza Virus 3 Negative Negative (test code = 98753-9) Parainfluenza Virus 4 Negative Negative (test code = 15131-6) Respiratory Syncytial Negative Negative Virus (test code = 45923-9) Bordetella parapertussis Negative Negative (test code = 65038-8) Bordetella pertussis Negative Negative (test code = 81434-1) Chlamydia pneumoniae Negative Negative (test code = 16427-6) Mycoplasma pneumoniae Negative Negative (test code = 04816-7) LUCILLE (test code = LUCILLE) Negative:A negative result does not rule-out infection. ?This assay does not test for all potential infectious agents. ? Positive:A positive test result does not necessarily indicate the presence of viable organism. ? Lab Interpretation (test Normal code = 90236-7) [facility] Station[facility]IR[facility] PANEL BY [id number] 20:36:40 Test Item Value Reference Range Interpretation Comments Adenovirus (test code = Negative Negative 13208-8) Coronavirus HKU1 (test Negative Negative code = 77906-8) Coronavirus NL63 (test Negative Negative code = 80053-9) Coronavirus 229E (test Negative Negative code = 41956-2) Coronavirus OC43 (test Negative Negative code = 60507-1) Human Metapneumovirus Negative Negative (test code = 81932-5) Human Negative Negative Rhinovirus/Enterovirus (test code = 52110-6) Influenza A (test code = Negative Negative 68223-9) Influenza B (test code = Negative Negative 55120-7) Parainfluenza Virus 1 Negative Negative (test code = 91685-0) Parainfluenza Virus 2 Negative Negative (test code = 11037-6) Parainfluenza Virus 3 Negative Negative (test code = 13727-1) Parainfluenza Virus 4 Negative Negative (test code = 51646-8) Respiratory Syncytial Negative Negative Virus (test code = 78691-8) Bordetella parapertussis Negative Negative (test code = 14911-5) Bordetella pertussis Negative Negative (test code = 24733-1) Chlamydia pneumoniae Negative Negative (test code = 87183-7) Mycoplasma pneumoniae Negative Negative (test code = 33599-1) LUCILLE (test code = LUCILLE) Negative:A negative result does not rule-out infection. ?This assay does not test for all potential infectious agents. ? Positive:A positive test result does not necessarily indicate the presence of viable organism. ? Lab Interpretation (test Normal code = 39969-9) [facility] ANTIB[facility]-PATHOLOGIST [id number] 19:52:54ANA - Pathologist InterpretationANA HEp-2 IIFA Pathologist Interpretation Report Patient Name: Nancie Ordonez ? ? Antinuclear Antibody (SHIRA) Test (Anti-Cell Antibodies Test) Indirect Immunofluorescence Assay on HEp-2 Cells Screening titer: 1:80 (adults, > 18 years old), 1:40 (pediatrics, <= 18 years old) ? Result: The antinuclear antibody (SHIRA) screen was positive but then had a low titer of <1:80 on subsequent testing. Generally, a titer greater than or equal to 1:160 is considered clinically significant. Remarks: This patient has a positive antinuclear antibody (SHIRA) screening test but with a low titer of <1:80 on subsequent testing. A titer of greater than orequal to 1:40 may occur in up to 20-30% of individuals without a systemic autoimmune rheumatic disease and is thus not considered to be clinically significant. In contrast, a titer greater than or equal to 1:160 is generally considered to be clinically significant, as only up to 5% of individuals in the general population will have a positive SHIRA at this titer. ? ? Therefore, this low titer SHIRA result does not necessarily indicate that the patient has a systemic autoimmune rheumatic disease. Further more, false positive SHIRA results are associated with increasing age and female gender. Clinical correlation is recommended. ? (https://pubmed.ncbi.nlm.nih.gov/43362630/) ? If the patient's clinical cond ition changes/progresses, repeating the SHIRA screen at a future time may be informative due to the evolving nature of systemic rheumatic diseases. ? ? A diagnosis cannot be based exclusively on SHIRA detection and/or pattern and thus should be madevia the integration of patient history, physical exam findings, and other diagnostic tests as clinically indicated. Juanis Mata MD ?10/22/2021 ?1:52 PM [facility] StationANTI-NUCLEAR ANTIBODY- PATHOLOGIST [id number] 19:52:54ANA - Pathologist InterpretationANA HEp-2 IIFA Pathologist Interpretation Report Patient Name: Nancie Ordonez ? ? Antinuclear Antibody (SHIRA) Test (Anti-Cell Antibodies Test) Indirect Immunofluorescence Assay on HEp-2 Cells Screening titer: 1:80 (adults, > 18 years old), 1:40 (pediatrics, <= 18 years old) ? Result: The antinuclear antibody (SHIRA) screen was positive but then had a low titer of <1:80 on subsequent testing. Generally, a titer greater than or equal to 1:160 is considered clinically significant. Remarks: This patient has a positive antinuclear antibody (SHIRA) screening test but with a low titer of <1:80 on subsequent testing. A titer of greater than orequal to 1:40 may occur in up to 20-30% of individuals without a systemic autoimmune rheumatic disease and is thus not considered to be clinically significant. In contrast, a titer greater than or equal to 1:160 is generally considered to be clinically significant, as only up to 5% of individuals in the general population will have a positive SHIRA at this titer. ? ? Therefore, this low titer SHIRA result does not necessarily indicate that the patient has a systemic autoimmune rheumatic disease. Furthermore, false positive SHIRA results are associated with increasing age and female gender. Clinical correlation is recommended. ? (https://pubmed.ncbi.nlm.nih.gov/99427964/) ? If the patient's clinical cond ition changes/progresses, repeating the SHIRA screen at a future time may be informative due to the evolving nature of systemic rheumatic diseases. ? ? A diagnosis cannot be based exclusively on SHIRA detection and/or pattern and thus should be madevia the integration of patient history, physical exam findings, and other diagnostic tests as clinically indicated. Juanis Mata MD ?10/22/2021 ?1:52 PM [facility] WITH [id number] 11:43:17 Test Item Value Reference Range Interpretation Comments WBC (test code = See_Comment H [Automated 6690-2) message] The system which generated this result transmit britney reference range : 4.30 - 11.10 10*3/?L. The reference range was not used to interpret this result as normal/abnormal . RBC (test code = See_Comment [Automated 789-8) message] The system which generated this result transmit britney reference range : 3.93 - 5.25 10*6/?L. The reference range was not used to interpret this result as normal/abnormal . HGB (test code = 11.4 g/dL 11.6-15.0 L 718-7) HCT (test code = 35.5 % 35.7-45.2 L 4544-3) MCV (test code = 88.3 fL 80.6-95.5 787-2) MCH (test code = 28.4 pg 25.9-32.8 785-6) MCHC (test code = 32.1 g/dL 31.6-35.1 786-4) RDW-SD (test code = 46.8 fL 39.0-49.9 23925-5) RDW-CV (test code = 14.6 % 12.0-15.5 788-0) PLT (test code = See_Comment H [Automated 777-3) message] The system which generated this result transmit britney reference range : 166 - 358 10*3/ ?L. The reference range was not u sed to interpret th is result as normal/abnormal . MPV (test code = 10.2 fL 9.5-12.9 12707-0) NRBC/100 WBC (test See_Comment [Automat ed code = 1495412481) message] The system which generated this result transmit britney reference range : 0.0 - 10.0 /100 WBCs. The reference range was not used to interpret this result as normal/abnormal . NRBC x10^3 (test code <0.01 See_Comment [Auto mated = 9484429499) message] The system which generated this result transmit britney reference range : 10*3/?L. The reference range was not used to interpret this result as normal/abnormal . GRAN MAT (NEUT) % 93.6 % (test code = 770-8) IMM GRAN % (test code 2.10 % = 5740091866) LYMPH % (test code = 2.8 % 736-9) MONO % (test code = 1.4 % 5905-5) EOS % (test code = 0.0 % 713-8) BASO % (test code = 0.1 % 706-2) GRAN MAT x10^3(ANC) 17.50 10*3/uL 1.88-7.09 H (test code = 3835703407) IMM GRAN x10^3 (test 0.40 10*3/uL 0.00-0.06 H code = 9200892571) LYMPH x10^3 (test code 0.53 10*3/uL 1.32-3.29 L = 731-0) MONO x10^3 (test code 0.26 10*3/uL 0.33-0.92 L = 742-7) EOS x10^3 (test code = <0.03 0.03-0.39 L 711-2) BASO x10^3 (test code <0.03 0.01-0.07 = 704-7) TOXIC CHANGES (test Present A code = 803-7) Lab Interpretation Abnormal (test code = 46788-8) [facility] WITH [id number] 11:43:17 Test Item Value Reference Range Interpretation Comments WBC (test code = See_Comment H [Automated 0090-2) message] The system which generated this result transmit britney reference range : 4.30 - 11.10 10*3/?L. The reference range was not used to interpret this result as normal/abnormal . RBC (test code = See_Comment [Automated 889-8) message] The system which generated this result transmit britney reference range : 3.93 - 5.25 10*6/?L. The reference range was not used to interpret this result as normal/abnormal . HGB (test code = 11.4 g/dL 11.6-15.0 L 718-7) HCT (test code = 35.5 % 35.7-45.2 L 4544-3) MCV (test code = 88.3 fL 80.6-95.5 787-2) MCH (test code = 28.4 pg 25.9-32.8 785-6) MCHC (test code = 32.1 g/dL 31.6-35.1 786-4) RDW-SD (test code = 46.8 fL 39.0-49.9 70510-6) RDW-CV (test code = 14.6 % 12.0-15.5 788-0) PLT (test code = See_Comment H [Automated 777-3) message] The system which generated this result transmit britney reference range : 166 - 358 10*3/ ?L. The reference range was not u sed to interpret th is result as normal/abnormal . MPV (test code = 10.2 fL 9.5-12.9 92516-2) NRBC/100 WBC (test See_Comment [Automat ed code = 5736175731) message] The system which generated this result transmit britney reference range : 0.0 - 10.0 /100 WBCs. The reference range was not used to interpret this result as normal/abnormal . NRBC x10^3 (test code <0.01 See_Comment [Auto mated = 0552519845) message] The system which generated this result transmit britney reference range : 10*3/?L. The reference range was not used to interpret this result as normal/abnormal . GRAN MAT (NEUT) % 93.6 % (test code = 770-8) IMM GRAN % (test code 2.10 % = 4339295791) LYMPH % (test code = 2.8 % 736-9) MONO % (test code = 1.4 % 5905-5) EOS % (test code = 0.0 % 713-8) BASO % (test code = 0.1 % 706-2) GRAN MAT x10^3(ANC) 17.50 10*3/uL 1.88-7.09 H (test code = 5692335439) IMM GRAN x10^3 (test 0.40 10*3/uL 0.00-0.06 H code = 6613325495) LYMPH x10^3 (test code 0.53 10*3/uL 1.32-3.29 L = 731-0) MONO x10^3 (test code 0.26 10*3/uL 0.33-0.92 L = 742-7) EOS x10^3 (test code = <0.03 0.03-0.39 L 711-2) BASO x10^3 (test code <0.03 0.01-0.07 = 704-7) TOXIC CHANGES (test Present A code = 803-7) Lab Interpretation Abnormal (test code = 86538-9) [facility] METABOLIC PANEL (NA, K, CL, CO2, GLUCOSE, BUN, CREATININE, CA)2021-10-22 11:20:32 Test Item Value Reference Range Interpretation Comments NA (test code = 136 mmol/L 135-145 5101057011) K (test code = 4.3 mmol/L 3.5-5.0 6587386546) CL (test code = 103 mmol/L 98-108 0400097845) CO2 TOTAL (test code = 26 mmol/L 23-31 6226939263) AGAP (test code = 2-16 5638144730) BUN (test code = 18 mg/dL 7-23 5907860005) GLUCOSE (test code = 185 mg/dL 70-110 H 8717002554) CREATININE (test code = 0.69 mg/dL 0.50-1.04 9675495945) CALCIUM (test code = 7.9 mg/dL 8.6-10.6 L 9990594728) eGFR (test code = mL/min/1.73m2 7533282071) LUCILLE (test code = LUCILLE) Association of Glomerular Filtration Rate (GFR) and Staging of Kidney Disease* + --+ --+ ------+| GFR (mL/min/1.73 m2) ?| With Kidney Damage ?| ?Without Kidney Damage+ --------+ --------+ +| ?>90 ?| ?Stage one ?| ? Normal ?+ ---+ ---+ -------+| ?60-89 ?| ?Stage two ?| ? Decreased GFR ? + --+ --+ ------+| ?30-59 ?| ?Stage three ?| ? Stage three ? + --+ --+ ------+| ?15-29 ?| ?Stage four ? | ? Stage four ?+ ---+ ---+ -------+| ?<15 (or dialysis) ? ?| ?Stage five ? | ? Stage five ?+ ---+ ---+ -------+ *Each stage assumes the associated GFR level has been in effect for at least three months. ?Stages 1 to 5, with or without kidney disease, indicate chronic kidney disease. Notes: Determination of stages one and two (with eGFR >59mL/min/1.73 m2) requires estimation of kidney damage for at least three months as defined by structural or functional abnormalities of the kidney, manifested by either:Pathological abnormalities or Markers of kidney damage (including abnormalities in the composition of the blood or urine or abnormalities in imaging tests). Lab Interpretation Abnormal (test code = 06005-8) [facility] 11:20:32 Test Item Value Reference Range Interpretation Comments MAGNESIUM (test code = 3042088695) 2.2 mg/dL 1.7-2.4 Lab Interpretation (test code = Normal 70182-8) [facility] METABOLIC PANEL (NA, K, CL, CO2, GLUCOSE, BUN, CREATININE, CA)2021-10-22 11:20:32 Test Item Value Reference Range Interpretation Comments NA (test code = 136 mmol/L 135-145 0872199901) K (test code = 4.3 mmol/L 3.5-5.0 6660004376) CL (test code = 103 mmol/L 98-108 5600380604) CO2 TOTAL (test code = 26 mmol/L 23-31 6596894281) AGAP (test code = 2-16 6097073830) BUN (test code = 18 mg/dL 7-23 2440322797) GLUCOSE (test code = 185 mg/dL 70-110 H 4378639477) CREATININE (test code = 0.69 mg/dL 0.50-1.04 0710726762) CALCIUM (test code = 7.9 mg/dL 8.6-10.6 L 4112929788) eGFR (test code = mL/min/1.73m2 4256663655) LUCILLE (test code = LUCILLE) Association of Glomerular Filtration Rate (GFR) and Staging of Kidney Disease* + --+ --+ ------+| GFR (mL/min/1.73 m2) ?| With Kidney Damage ?| ?Without Kidney Damage+ --------+ --------+ +| ?>90 ?| ?Stage one ?| ? Normal ?+ ---+ ---+ -------+| ?60-89 ?| ?Stage two ?| ? Decreased GFR ? + --+ --+ ------+| ?30-59 ?| ?Stage three ?| ? Stage three ? + --+ --+ ------+| ?15-29 ?| ?Stage four ? | ? Stage four ?+ ---+ ---+ -------+| ?<15 (or dialysis) ? ?| ?Stage five ? | ? Stage five ?+ ---+ ---+ -------+ *Each stage assumes the associated GFR level has been in effect for at least three months. ?Stages 1 to 5, with or without kidney disease, indicate chronic kidney disease. Notes: Determination of stages one and two (with eGFR >59mL/min/1.73 m2) requires estimation of kidney damage for at least three months as defined by structural or functional abnormalities of the kidney, manifested by either:Pathological abnormalities or Markers of kidney damage (including abnormalities in the composition of the blood or urine or abnormalities in imaging tests). Lab Interpretation Abnormal (test code = 42410-7) [facility]22-02-19 11:20:32 Test Item Value Reference Range Interpretation Comments MAGNESIUM (test code = 3445454608) 2.2 mg/dL 1.7-2.4 Lab Interpretation (test code = Normal 29988-7) [facility] StationBL[facility] CULT[facility] [id number] 23:01:06 Test Item Value Reference Range Interpretation Comments Blood Culture-Aerobic No organisms No growth Previo us (test code = 28789-3) isolated prelim inary verified result was Culture In Progress on 10/16/2021 at 20 02 CSTPrevious preliminary verified result was No growth a t 24 hours on 10/17/2021 at 17 01 CSTPrevious preliminary verified result was No growth a t 48 hours on 10/18/2021 at 17 01 CSTPrevious preliminary verified result was No growth a t 72 hours on 10/19/2021 at 17 02 RN OFFICE Blood No organisms No growth Previous Culture-Anaerobic isolated preliminar y (test code = 81775-3) verifi ed result was Culture In Progress on 10/16/2021 at 20 02 CSTPrevious preliminary verified result was No growth a t 24 hours on 10/17/2021 at 17 01 CSTPrevious preliminary verified result was No growth a t 48 hours on 10/18/2021 at 17 01 CSTPrevious preliminary verified result was No growth a t 72 hours on 10/19/2021 at 17 02 RN OFFICE Lab Interpretation Normal (test code = 32054-9) [facility] CULTURE [id number] 23:01:06 Test Item Value Reference Range Interpretation Comments Blood Culture-Aerobic No organisms No growth Previo us (test code = 55637-5) isolated prelim inary verified result was Culture In Progress on 10/16/2021 at 20 02 CSTPrevious preliminary verified result was No growth a t 24 hours on 10/17/2021 at 17 01 CSTPrevious preliminary verified result was No growth a t 48 hours on 10/18/2021 at 17 02 CSTPrevious preliminary verified result was No growth a t 72 hours on 10/19/2021 at 17 02 RN OFFICE Blood No organisms No growth Previous Culture-Anaerobic isolated preliminar y (test code = 20279-7) verifi ed result was Culture In Progress on 10/16/2021 at 20 02 CSTPrevious preliminary verified result was No growth a t 24 hours on 10/17/2021 at 17 01 CSTPrevious preliminary verified result was No growth a t 48 hours on 10/18/2021 at 17 02 CSTPrevious preliminary verified result was No growth a t 72 hours on 10/19/2021 at 17 02 RN OFFICE Lab Interpretation Normal (test code = 20825-1) [facility] CULTURE [id number] 23:01:06 Test Item Value Reference Range Interpretation Comments Blood Culture-Aerobic No organisms No growth Previo us (test code = 97120-5) isolated prelim inary verified result was Culture In Progress on 10/16/2021 at 20 02 CSTPrevious preliminary verified result was No growth a t 24 hours on 10/17/2021 at 17 01 CSTPrevious preliminary verified result was No growth a t 48 hours on 10/18/2021 at 17 01 CSTPrevious preliminary verified result was No growth a t 72 hours on 10/19/2021 at 17 02 RN OFFICE Blood No organisms No growth Previous Culture-Anaerobic isolated preliminar y (test code = 85651-7) verifi ed result was Culture In Progress on 10/16/2021 at 20 02 CSTPrevious preliminary verified result was No growth a t 24 hours on 10/17/2021 at 17 01 CSTPrevious preliminary verified result was No growth a t 48 hours on 10/18/2021 at 17 01 CSTPrevious preliminary verified result was No growth a t 72 hours on 10/19/2021 at 17 02 RN OFFICE Lab Interpretation Normal (test code = 77002-6) [facility] [id number] 23:01:06 Test Item Value Reference Range Interpretation Comments Blood Culture-Aerobic No organisms No growth Previo us (test code = 56472-4) isolated prelim inary verified result was Culture In Progress on 10/16/2021 at 20 02 CSTPrevious preliminary verified result was No growth a t 24 hours on 10/17/2021 at 17 01 CSTPrevious preliminary verified result was No growth a t 48 hours on 10/18/2021 at 17 02 CSTPrevious preliminary verified result was No growth a t 72 hours on 10/19/2021 at 17 02 RN OFFICE Blood No organisms No growth Previous Culture-Anaerobic isolated preliminar y (test code = 21328-8) verifi ed result was Culture In Progress on 10/16/2021 at 20 02 CSTPrevious preliminary verified result was No growth a t 24 hours on 10/17/2021 at 17 01 CSTPrevious preliminary verified result was No growth a t 48 hours on 10/18/2021 at 17 02 CSTPrevious preliminary verified result was No growth a t 72 hours on 10/19/2021 at 17 02 RN OFFICE Lab Interpretation Normal (test code = 88946-4) [facility] StationAC PANEL 20 + LACTIC [id number] 20:42:21 Test Item Value Reference Range Interpretation Comments PH (test code = 2) 7.35-7.45 PCO2 (test code = See_Comment [Automat ed 9753040374) message] The sy stem which generated this result transmitted reference range : 35 - 45 mmHg. The reference range was not used to interpret this result as normal/abnormal . PO2 (test code = See_Comment H [Automated 3276385258) message] The sy stem which generated this result transmitted reference range : 80 - 100 mmHg. The reference range was not used to interpret this result as normal/abnormal . HCO3 (test code = See_Comment [Automate d 6221603916) message] The sy stem which generated this result transmitted reference range : 22 - 26 mEq/L. The reference range was not used to interpret this result as normal/abnormal . BE (test code = See_Comment [Automated 1826158632) message] The sy stem which generated this result transmitted reference range : -3.0 - 3.0 mEq/ L. The reference r nicholas was not used to interpret this result as normal/abnormal . THB (test code = 12.1 g/dL 12.0-16.0 3987756664) %O2HB (test code = 99.5 % 94.0-99.0 H 6686879243) %COHB ART (test code = 0.1 % 0.0-1.5 8482199166) %METHB ART (test code = 0.1 % 0.4-1.5 L 3136346901) VOL%O2 ART (test code = 17.8 % 15.0-23.0 9292561193) NA (test code = 135 mmol/L 135-145 7904315822) K+ (test code = 4.3 mmol/L 3.5-5.0 6814014427) AC CA IONZ (test code = 4.50 mg/dL 4.50-5.30 0085962149) GLUCOSE (test code = 108 mg/dL 70-110 3369417909) LACTIC ACID (test code 2.19 mmol/L 0.50-2.20 = 7199315165) Lab Interpretation Abnormal (test code = 63029-5) [facility] StationAC PANEL 20 + LACTIC [id number] 20:42:21 Test Item Value Reference Range Interpretation Comments PH (test code = 2) 7.35-7.45 PCO2 (test code = See_Comment [Automat ed 3135058542) message] The sy stem which generated this result transmitted reference range : 35 - 45 mmHg. The reference range was not used to interpret this result as normal/abnormal . PO2 (test code = See_Comment H [Automated 8870269782) message] The sy stem which generated this result transmitted reference range : 80 - 100 mmHg. The reference range was not used to interpret this result as normal/abnormal . HCO3 (test code = See_Comment [Automate d 8617454747) message] The sy stem which generated this result transmitted reference range : 22 - 26 mEq/L. The reference range was not used to interpret this result as normal/abnormal . BE (test code = See_Comment [Automated 3209058610) message] The sy stem which generated this result transmitted reference range : -3.0 - 3.0 mEq/ L. The reference r nicholas was not used to interpret this result as normal/abnormal . THB (test code = 12.1 g/dL 12.0-16.0 7974656922) %O2HB (test code = 99.5 % 94.0-99.0 H 4204991620) %COHB ART (test code = 0.1 % 0.0-1.5 1237699322) %METHB ART (test code = 0.1 % 0.4-1.5 L 2069291558) VOL%O2 ART (test code = 17.8 % 15.0-23.0 5402976685) NA (test code = 135 mmol/L 135-145 6297845381) K+ (test code = 4.3 mmol/L 3.5-5.0 4474135929) AC CA IONZ (test code = 4.50 mg/dL 4.50-5.30 3760719599) GLUCOSE (test code = 108 mg/dL 70-110 0732560558) LACTIC ACID (test code 2.19 mmol/L 0.50-2.20 = 1383106476) Lab Interpretation Abnormal (test code = 32729-4) [facility] StationANGIOTENSIN CONVERTING [id number] 20:19:53 Test Item Value Reference Range Interpretation Comments MELLY (test code = 28 U/L 9- Performed B y: ARUP 2742-5) [address] [place] [address] [id number] Director: Korin Barillas MD [facility] StationANGIOTENSIN CONVERTING [id number] 20:19:53 Test Item Value Reference Range Interpretation Comments MELLY (test code = 28 U/L - Performed B y: ARUP 2742-5) [address] [place] [address] [id number] Director: Korin Barillas MD [facility] StationBODY FLUID MANUAL [id number] 19:44:45 Test Item Value Reference Range Interpretation Comments BF SEGS% (test code = 82588-3) 2 % BF LYMPHS% (test code = 88449-7) 12 % BF MACROPHAGE% (test code = 23709-3) 86 % BF #CELLS CNTD (test code = 3767730776) cells/uL [facility] FLUID MANUAL [id number] 19:44:45 Test Item Value Reference Range Interpretation Comments BF SEGS% (test code = 15012-7) 2 % BF LYMPHS% (test code = 58131-0) 12 % BF MACROPHAGE% (test code = 50092-7) 86 % BF #CELLS CNTD (test code = 1837074348) cells/uL [facility] FLUID DIRECT [id number] 19:44:30 Test Item Value Reference Range Interpretation Comments BF COLOR Clear (test code = 2668943238) BF WBC Count See_Comment [Automated (test code = message] The sy stem 2724518635) which generated this result transmitted reference range : /?L. The refere nce range was not u sed to interpret th is result as normal/abnormal . BF RBC Count <3000 See_Comment [Automated (test code = message] The sy stem 5162973903) which generated this result transmitted reference range : /?L. The refere nce range was not u sed to interpret th is result as normal/abnormal . LUCILLE (test The reference range code = LUCILLE) and other method performance specifications have not been established for this body fluid. ?The test results must be integrated into the clinical context for interpretation. [facility] FLUID DIRECT [id number] 19:44:30 Test Item Value Reference Range Interpretation Comments BF COLOR Clear (test code = 7372684096) BF WBC Count See_Comment [Automated (test code = message] The sy stem 3840627843) which generated this result transmitted reference range : /?L. The refere nce range was not u sed to interpret th is result as normal/abnormal . BF RBC Count <3000 See_Comment [Automated (test code = message] The sy stem 9059983565) which generated this result transmitted reference range : /?L. The refere nce range was not u sed to interpret th is result as normal/abnormal . LUCILLE (test The reference range code = LUCILLE) and other method performance specifications have not been established for this body fluid. ?The test results must be integrated into the clinical context for interpretation. [facility] WITH [id number] 19:27:30 Test Item Value Reference Range Interpretation Comments WBC (test code = See_Comment H [Automated 6690-2) message] The system which generated this result transmit britney reference range : 4.30 - 11.10 10*3/?L. The reference range was not used to interpret this result as normal/abnormal . RBC (test code = See_Comment L [Automated 789-8) message] The system which generated this result transmit britney reference range : 3.93 - 5.25 10*6/?L. The reference range was not used to interpret this result as normal/abnormal . HGB (test code = 11.9 g/dL 11.6-15.0 718-7) HCT (test code = 33.7 % 35.7-45.2 L 4544-3) MCV (test code = 87.5 fL 80.6-95.5 787-2) MCH (test code = 30.9 pg 25.9-32.8 785-6) MCHC (test code = 35.3 g/dL 31.6-35.1 H 786-4) RDW-SD (test code = 45.8 fL 39.0-49.9 11159-6) RDW-CV (test code = 14.4 % 12.0-15.5 788-0) PLT (test code = See_Comment H [Automated 777-3) message] The system which generated this result transmit britney reference range : 166 - 358 10*3/ ?L. The reference range was not u sed to interpret th is result as normal/abnormal . MPV (test code = 10.4 fL 9.5-12.9 32412-2) NRBC/100 WBC (test See_Comment [Automat ed code = 5793143531) message] The system which generated this result transmit britney reference range : 0.0 - 10.0 /100 WBCs. The reference range was not used to interpret this result as normal/abnormal . NRBC x10^3 (test code See_Comment [Auto mated = 5971280244) message] The system which generated this result transmit britney reference range : 10*3/?L. The reference range was not used to interpret this result as normal/abnormal . SEG % (test code = 84 % 33-76 H 78169-9) BAND % (test code = 8 % 0-1 H 33460-7) MYELO % (test code = 2 % See_Comment H [Autom ated 50276-7) message] The system which generated this result transmit britney reference range : <=0. The refere nce range was not u sed to interpret th is result as normal/abnormal . LYMPH % (test code = 4 % 14-54 L 62150-4) MONO % (test code = 2 % 0-4 43810-3) ANC (test code = 21.16 10*3/uL 1.88-7.09 H 753-4) Lab Interpretation Abnormal (test code = 73686-7) [facility] WITH [id number] 19:27:30 Test Item Value Reference Range Interpretation Comments WBC (test code = See_Comment H [Automated 6690-2) message] The system which generated this result transmit britney reference range : 4.30 - 11.10 10*3/?L. The reference range was not used to interpret this result as normal/abnormal . RBC (test code = See_Comment L [Automated 789-8) message] The system which generated this result transmit britney reference range : 3.93 - 5.25 10*6/?L. The reference range was not used to interpret this result as normal/abnormal . HGB (test code = 11.9 g/dL 11.6-15.0 718-7) HCT (test code = 33.7 % 35.7-45.2 L 4544-3) MCV (test code = 87.5 fL 80.6-95.5 787-2) MCH (test code = 30.9 pg 25.9-32.8 785-6) MCHC (test code = 35.3 g/dL 31.6-35.1 H 786-4) RDW-SD (test code = 45.8 fL 39.0-49.9 37962-3) RDW-CV (test code = 14.4 % 12.0-15.5 788-0) PLT (test code = See_Comment H [Automated 777-3) message] The system which generated this result transmit britney reference range : 166 - 358 10*3/ ?L. The reference range was not u sed to interpret th is result as normal/abnormal . MPV (test code = 10.4 fL 9.5-12.9 46691-4) NRBC/100 WBC (test See_Comment [Automat ed code = 8582596457) message] The system which generated this result transmit britney reference range : 0.0 - 10.0 /100 WBCs. The reference range was not used to interpret this result as normal/abnormal . NRBC x10^3 (test code See_Comment [Auto mated = 6731591628) message] The system which generated this result transmit britney reference range : 10*3/?L. The reference range was not used to interpret this result as normal/abnormal . SEG % (test code = 84 % 33-76 H 13497-7) BAND % (test code = 8 % 0-1 H 68154-1) MYELO % (test code = 2 % See_Comment H [Autom ated 96483-9) message] The system which generated this result transmit britney reference range : <=0. The refere nce range was not u sed to interpret th is result as normal/abnormal . LYMPH % (test code = 4 % 14-54 L 12955-1) MONO % (test code = 2 % 0-4 56420-3) ANC (test code = 21.16 10*3/uL 1.88-7.09 H 753-4) Lab Interpretation Abnormal (test code = 40543-2) [facility] (NA, K, CL, CO2, GLUCOSE, BUN, CREATININE, CA)2021-10-21 19:20:26 Test Item Value Reference Range Interpretation Comments NA (test code = 125 mmol/L 135-145 L 1918203177) K (test code = 4.4 mmol/L 3.5-5.0 Slight 0600911783) hemolysis CL (test code = 98 mmol/L 98-108 6256507427) CO2 TOTAL (test code 19 mmol/L 23-31 L = 8298329132) AGAP (test code = 2-16 0125559814) BUN (test code = 21 mg/dL 7-23 Slight 7880295507) hemolysis GLUCOSE (test code = 155 mg/dL 70-110 H 4759401125) CREATININE (test code 0.63 mg/dL 0.50-1.04 = 6886898154) CALCIUM (test code = 6.9 mg/dL 8.6-10.6 L 0749719077) eGFR (test code = mL/min/1.73m2 3248277186) LUCILLE (test code = LUCILLE) Association of Glomerular Filtration Rate (GFR) and Staging of Kidney Disease* + -----+ --------+ +| GFR (mL/min/1.73 m2) ?| With Kidney Damage ?| ?Without Kidney Damage+ +------- +---- --+| ?>90 ?| ?Stage one ?| ? Normal ?+ ------+ ---------+--------- +| ?60-89 ?| ?Stage two ?| ? Decreased GFR ? + -----+ --------+ +| ?30-59 ?| ?Stage three ?| ? Stage three ? + -----+ --------+ +| ?15-29 ?| ?Stage four ? | ? Stage four ?+ ------+ ---------+--------- +| ?<15 (or dialysis) ? ?| ?Stage five ? | ? Stage five ?+ ------+ ---------+--------- + *Each stage assumes the associated GFR level has been in effect for at least three months. ?Stages 1 to 5, with or without kidney disease, indicate chronic kidney disease. Notes: Determination of stages one and two (with eGFR >59mL/min/1.73 m2) requires estimation of kidney damage for at least three months as defined by structural or functional abnormalities of the kidney, manifested by either:Pathological abnormalities or Markers of kidney damage (including abnormalities in the composition of the blood or urine or abnormalities in imaging tests). Lab Interpretation Abnormal (test code = 67847-2) [facility] METABOLIC PANEL (NA, K, CL, CO2, GLUCOSE, BUN, CREATININE, CA)2021-10-21 19:20:26 Test Item Value Reference Range Interpretation Comments NA (test code = 125 mmol/L 135-145 L 7405319866) K (test code = 4.4 mmol/L 3.5-5.0 Slight 7341254490) hemolysis CL (test code = 98 mmol/L 98-108 1974811695) CO2 TOTAL (test code 19 mmol/L 23-31 L = 9359746566) AGAP (test code = 2-16 9471777845) BUN (test code = 21 mg/dL 7-23 Slight 9841083645) hemolysis GLUCOSE (test code = 155 mg/dL 70-110 H 4057628040) CREATININE (test code 0.63 mg/dL 0.50-1.04 = 3792758141) CALCIUM (test code = 6.9 mg/dL 8.6-10.6 L 1723170073) eGFR (test code = mL/min/1.73m2 2388345406) LUCILLE (test code = LUCILLE) Association of Glomerular Filtration Rate (GFR) and Staging of Kidney Disease* + -----+ --------+ +| GFR (mL/min/1.73 m2) ?| With Kidney Damage ?| ?Without Kidney Damage+ +------- +---- --+| ?>90 ?| ?Stage one ?| ? Normal ?+ ------+ ---------+--------- +| ?60-89 ?| ?Stage two ?| ? Decreased GFR ? + -----+ --------+ +| ?30-59 ?| ?Stage three ?| ? Stage three ? + -----+ --------+ +| ?15-29 ?| ?Stage four ? | ? Stage four ?+ ------+ ---------+--------- +| ?<15 (or dialysis) ? ?| ?Stage five ? | ? Stage five ?+ ------+ ---------+--------- + *Each stage assumes the associated GFR level has been in effect for at least three months. ?Stages 1 to 5, with or without kidney disease, indicate chronic kidney disease. Notes: Determination of stages one and two (with eGFR >59mL/min/1.73 m2) requires estimation of kidney damage for at least three months as defined by structural or functional abnormalities of the kidney, manifested by either:Pathological abnormalities or Markers of kidney damage (including abnormalities in the composition of the blood or urine or abnormalities in imaging tests). Lab Interpretation Abnormal (test code = 48791-2) [facility]2022-02-18 19:12:03 Test Item Value Reference Range Interpretation Comments Fibrinogen (test code = 3851431424) 585 mg/dL 167-453 H Lab Interpretation (test code = Abnormal 30500-3) [facility] StationPROTHROMBIN TIME / [id number] 19:12:03 Test Item Value Reference Range Interpretation Comments PROTIME PATIENT (test See_Comment H [Auto mated message] code = 5964-2) The system [employer] generated this result transmitted ref erence range: 10.1 - 1 2.6 Seconds. The reference range was not used to int erpret this result as normal/abnormal . INR (test code = 6301-6) Nor mal INR <1.1; Warfarin Therap eutic range 2.0 to 3. 0 or 2.5 to 3.5, dep ending upon the indica tions. Lab Interpretation (test Abnormal code = 40934-4) [facility]2022-02-18 19:12:03 Test Item Value Reference Range Interpretation Comments Fibrinogen (test code = 6284246639) 585 mg/dL 167-453 H Lab Interpretation (test code = Abnormal 30718-9) [facility] StationPROTHROMBIN TIME / [id number] 19:12:03 Test Item Value Reference Range Interpretation Comments PROTIME PATIENT (test See_Comment H [Auto mated message] code = 5964-2) The system [employer] generated this result transmitted ref erence range: 10.1 - 1 2.6 Seconds. The reference range was not used to int erpret this result as normal/abnormal . INR (test code = 6301-6) Nor mal INR <1.1; Warfarin Therap eutic range 2.0 to 3. 0 or 2.5 to 3.5, dep ending upon the indica tions. Lab Interpretation (test Abnormal code = 46079-3) [facility] StationURIC [id number] 04:54:18 Test Item Value Reference Range Interpretation Comments URIC ACID (test code = 8448445263) 4.3 mg/dL 2.9-6.0 Lab Interpretation (test code = Normal 08522-2) [facility] StationUR[facility] [id number] 04:54:18 Test Item Value Reference Range Interpretation Comments URIC ACID (test code = 4875596972) 4.3 mg/dL 2.9-6.0 Lab Interpretation (test code = Normal 48743-3) [facility] StationTransthoracic echo (TTE)2021-10-20 20:54:06 Test Item Value Reference Range Interpretation Comments EF(Teich) (test code = 63.80 % 4681791962) LVIDD (test code = 4.40 cm 0734940025) LVIDS (test code = 2.90 cm 9356587479) IVS (test code = 0.86 cm 0550524058) LVPWD (test code = 0.86 cm 7833626352) LVOT diameter (test code 2.00 cm = 0379217792) FS (test code = 35 % 6759956090) LA size (test code = 3.4 cm 4718392658) LAV(MOD-sp4) (test code = 41.40 mL 5489761805) Ao root annulus (test 2.44 cm code = 2500482345) Ao root diam (test code = 2.44 cm 1304284868) Aortic root (test code = 2.44 cm 8777778870) PW (test code = 0.86 cm 0.6-1.5 3143896351) EF - 2D (test code = 63.80 % 50894681) Interventricular Septum 0.86 cm Diastolic Thickness by 2D (test code = 9516537) Radiology Study observation (narrative) (test code = 58839-7) LUCILLE (test code = LUCILLE) ?Left?Ventricle: Left ventricle is normal in size and function. Normal wall thickness. Normal systolic function with a visually estimated EF of 55 - 60%. ?Aortic?Valve: Aortic valve is normal in structure and function. ?Mitral?Valve: Mitral valve is normal in structure and function. VitalsHeight Weight BSA (Calculated - sq m) BP Pulse 60 220lb ? ?114/63 81 [facility] StationTran[facility]hor[facility] (TTE)2021-10-20 20:54:06 Test Item Value Reference Range Interpretation Comments EF(Teich) (test code = 63.80 % 5078042694) LVIDD (test code = 4.40 cm 6545907717) LVIDS (test code = 2.90 cm 9823573441) IVS (test code = 0.86 cm 7930587351) LVPWD (test code = 0.86 cm 7736832544) LVOT diameter (test code 2.00 cm = 0231059471) FS (test code = 35 % 4912895207) LA size (test code = 3.4 cm 0709307665) LAV(MOD-sp4) (test code = 41.40 mL 1512150601) Ao root annulus (test 2.44 cm code = 4056490560) Ao root diam (test code = 2.44 cm 8433021543) Aortic root (test code = 2.44 cm 3096329670) PW (test code = 0.86 cm 0.6-1.5 7514112255) EF - 2D (test code = 63.80 % 16094376) Interventricular Septum 0.86 cm Diastolic Thickness by 2D (test code = 8230805) Radiology Study observation (narrative) (test code = 66330-5) LUCILLE (test code = LUCILLE) ?Left?Ventricle: Left ventricle is normal in size and function. Normal wall thickness. Normal systolic function with a visually estimated EF of 55 - 60%. ?Aortic?Valve: Aortic valve is normal in structure and function. ?Mitral?Valve: Mitral valve is normal in structure and function. VitalsHeight Weight BSA (Calculated - sq m) BP Pulse 60 220lb ? ?114/63 81 [facility] WITH [id number] 11:09:20 Test Item Value Reference Range Interpretation Comments WBC (test code = See_Comment H [Automated 5144-2) message] The system which generated this result transmit britney reference range : 4.30 - 11.10 10*3/?L. The reference range was not used to interpret this result as normal/abnormal . RBC (test code = See_Comment L [Automated 614-8) message] The system which generated this result transmit britney reference range : 3.93 - 5.25 10*6/?L. The reference range was not used to interpret this result as normal/abnormal . HGB (test code = 10.5 g/dL 11.6-15.0 L 718-7) HCT (test code = 32.9 % 35.7-45.2 L 4544-3) MCV (test code = 88.4 fL 80.6-95.5 787-2) MCH (test code = 28.2 pg 25.9-32.8 785-6) MCHC (test code = 31.9 g/dL 31.6-35.1 786-4) RDW-SD (test code = 46.3 fL 39.0-49.9 29557-2) RDW-CV (test code = 14.5 % 12.0-15.5 788-0) PLT (test code = See_Comment [Automated 777-3) message] The system which generated this result transmit britney reference range : 166 - 358 10*3/ ?L. The reference range was not u sed to interpret th is result as normal/abnormal . MPV (test code = 9.9 fL 9.5-12.9 87780-3) NRBC/100 WBC (test See_Comment [Automat ed code = 5878220173) message] The system which generated this result transmit britney reference range : 0.0 - 10.0 /100 WBCs. The reference range was not used to interpret this result as normal/abnormal . NRBC x10^3 (test code <0.01 See_Comment [Auto mated = 2761355840) message] The system which generated this result transmit britney reference range : 10*3/?L. The reference range was not used to interpret this result as normal/abnormal . GRAN MAT (NEUT) % 89.9 % (test code = 770-8) IMM GRAN % (test code 2.90 % = 3573362114) LYMPH % (test code = 4.2 % 736-9) MONO % (test code = 2.9 % 5905-5) EOS % (test code = 0.0 % 713-8) BASO % (test code = 0.1 % 706-2) GRAN MAT x10^3(ANC) 14.51 10*3/uL 1.88-7.09 H (test code = 0755221835) IMM GRAN x10^3 (test 0.46 10*3/uL 0.00-0.06 H code = 8709029774) LYMPH x10^3 (test code 0.67 10*3/uL 1.32-3.29 L = 731-0) MONO x10^3 (test code 0.47 10*3/uL 0.33-0.92 = 742-7) EOS x10^3 (test code = <0.03 0.03-0.39 L 711-2) BASO x10^3 (test code <0.03 0.01-0.07 = 704-7) TOXIC CHANGES (test Present A code = 803-7) Lab Interpretation Abnormal (test code = 82766-9) [facility] WITH [id number] 11:09:20 Test Item Value Reference Range Interpretation Comments WBC (test code = See_Comment H [Automated 6690-2) message] The system which generated this result transmit britney reference range : 4.30 - 11.10 10*3/?L. The reference range was not used to interpret this result as normal/abnormal . RBC (test code = See_Comment L [Automated 789-8) message] The system which generated this result transmit britney reference range : 3.93 - 5.25 10*6/?L. The reference range was not used to interpret this result as normal/abnormal . HGB (test code = 10.5 g/dL 11.6-15.0 L 718-7) HCT (test code = 32.9 % 35.7-45.2 L 4544-3) MCV (test code = 88.4 fL 80.6-95.5 787-2) MCH (test code = 28.2 pg 25.9-32.8 785-6) MCHC (test code = 31.9 g/dL 31.6-35.1 786-4) RDW-SD (test code = 46.3 fL 39.0-49.9 81032-4) RDW-CV (test code = 14.5 % 12.0-15.5 788-0) PLT (test code = See_Comment [Automated 777-3) message] The system which generated this result transmit britney reference range : 166 - 358 10*3/ ?L. The reference range was not u sed to interpret th is result as normal/abnormal . MPV (test code = 9.9 fL 9.5-12.9 88444-1) NRBC/100 WBC (test See_Comment [Automat ed code = 6308900457) message] The system which generated this result transmit britney reference range : 0.0 - 10.0 /100 WBCs. The reference range was not used to interpret this result as normal/abnormal . NRBC x10^3 (test code <0.01 See_Comment [Auto mated = 6599368907) message] The system which generated this result transmit britney reference range : 10*3/?L. The reference range was not used to interpret this result as normal/abnormal . GRAN MAT (NEUT) % 89.9 % (test code = 770-8) IMM GRAN % (test code 2.90 % = 5701965510) LYMPH % (test code = 4.2 % 736-9) MONO % (test code = 2.9 % 5905-5) EOS % (test code = 0.0 % 713-8) BASO % (test code = 0.1 % 706-2) GRAN MAT x10^3(ANC) 14.51 10*3/uL 1.88-7.09 H (test code = 4578294759) IMM GRAN x10^3 (test 0.46 10*3/uL 0.00-0.06 H code = 9288918955) LYMPH x10^3 (test code 0.67 10*3/uL 1.32-3.29 L = 731-0) MONO x10^3 (test code 0.47 10*3/uL 0.33-0.92 = 742-7) EOS x10^3 (test code = <0.03 0.03-0.39 L 711-2) BASO x10^3 (test code <0.03 0.01-0.07 = 704-7) TOXIC CHANGES (test Present A code = 803-7) Lab Interpretation Abnormal (test code = 43730-1) [facility] METABOLIC PANEL (NA, K, CL, CO2, GLUCOSE, BUN, CREATININE, CA)2021-10-20 10:55:22 Test Item Value Reference Range Interpretation Comments NA (test code = 136 mmol/L 135-145 3344073975) K (test code = 4.1 mmol/L 3.5-5.0 0429210685) CL (test code = 108 mmol/L 98-108 9888403977) CO2 TOTAL (test code = 25 mmol/L 23-31 2531082312) AGAP (test code = 2-16 5065795357) BUN (test code = 23 mg/dL 7-23 5399760814) GLUCOSE (test code = 134 mg/dL 70-110 H 1374899362) CREATININE (test code = 0.67 mg/dL 0.50-1.04 8132522741) CALCIUM (test code = 7.5 mg/dL 8.6-10.6 L 2351126592) eGFR (test code = mL/min/1.73m2 0798293290) LUCILLE (test code = LUCILLE) Association of Glomerular Filtration Rate (GFR) and Staging of Kidney Disease* + --+ --+ ------+| GFR (mL/min/1.73 m2) ?| With Kidney Damage ?| ?Without Kidney Damage+ --------+ --------+ +| ?>90 ?| ?Stage one ?| ? Normal ?+ ---+ ---+ -------+| ?60-89 ?| ?Stage two ?| ? Decreased GFR ? + --+ --+ ------+| ?30-59 ?| ?Stage three ?| ? Stage three ? + --+ --+ ------+| ?15-29 ?| ?Stage four ? | ? Stage four ?+ ---+ ---+ -------+| ?<15 (or dialysis) ? ?| ?Stage five ? | ? Stage five ?+ ---+ ---+ -------+ *Each stage assumes the associated GFR level has been in effect for at least three months. ?Stages 1 to 5, with or without kidney disease, indicate chronic kidney disease. Notes: Determination of stages one and two (with eGFR >59mL/min/1.73 m2) requires estimation of kidney damage for at least three months as defined by structural or functional abnormalities of the kidney, manifested by either:Pathological abnormalities or Markers of kidney damage (including abnormalities in the composition of the blood or urine or abnormalities in imaging tests). Lab Interpretation Abnormal (test code = 87168-9) [facility] METABOLIC PANEL (NA, K, CL, CO2, GLUCOSE, BUN, CREATININE, CA)2021-10-20 10:55:22 Test Item Value Reference Range Interpretation Comments NA (test code = 136 mmol/L 135-145 5514638360) K (test code = 4.1 mmol/L 3.5-5.0 5206230661) CL (test code = 108 mmol/L 98-108 3565272328) CO2 TOTAL (test code = 25 mmol/L 23-31 1905666410) AGAP (test code = 2-16 4874823744) BUN (test code = 23 mg/dL 7-23 7768324673) GLUCOSE (test code = 134 mg/dL 70-110 H 9439870369) CREATININE (test code = 0.67 mg/dL 0.50-1.04 1913058692) CALCIUM (test code = 7.5 mg/dL 8.6-10.6 L 9840178202) eGFR (test code = mL/min/1.73m2 8756145354) LUCILLE (test code = LUCILLE) Association of Glomerular Filtration Rate (GFR) and Staging of Kidney Disease* + --+ --+ ------+| GFR (mL/min/1.73 m2) ?| With Kidney Damage ?| ?Without Kidney Damage+ --------+ --------+ +| ?>90 ?| ?Stage one ?| ? Normal ?+ ---+ ---+ -------+| ?60-89 ?| ?Stage two ?| ? Decreased GFR ? + --+ --+ ------+| ?30-59 ?| ?Stage three ?| ? Stage three ? + --+ --+ ------+| ?15-29 ?| ?Stage four ? | ? Stage four ?+ ---+ ---+ -------+| ?<15 (or dialysis) ? ?| ?Stage five ? | ? Stage five ?+ ---+ ---+ -------+ *Each stage assumes the associated GFR level has been in effect for at least three months. ?Stages 1 to 5, with or without kidney disease, indicate chronic kidney disease. Notes: Determination of stages one and two (with eGFR >59mL/min/1.73 m2) requires estimation of kidney damage for at least three months as defined by structural or functional abnormalities of the kidney, manifested by either:Pathological abnormalities or Markers of kidney damage (including abnormalities in the composition of the blood or urine or abnormalities in imaging tests). Lab Interpretation Abnormal (test code = 80866-7) [facility] [id number] 21:49:45 Test Item Value Reference Range Interpretation Comments ANTI-DSDNA (test code See_Comment [Auto mated = 3916068926) message] The system which generated this result transmit britney reference range : 0.0 - 4.0 IU/mL . The reference range was not u sed to interpret th is result as normal/abnormal . LUCILLE (test code = LUCILLE) Negative ? ?< or = 4 IU/mLPositive ? ? ?> or = 10 IU/mLIndetermin ate ?5-9 IU/mL Lab Interpretation Normal (test code = 20579-4) [facility] [id number] 21:49:45 Test Item Value Reference Range Interpretation Comments ANTI-DSDNA (test code See_Comment [Auto mated = 6906762088) message] The system which generated this result transmit britney reference range : 0.0 - 4.0 IU/mL . The reference range was not u sed to interpret th is result as normal/abnormal . LUCILLE (test code = LUCILLE) Negative ? ?< or = 4 IU/mLPositive ? ? ?> or = 10 IU/mLIndetermin ate ?5-9 IU/mL Lab Interpretation Normal (test code = 66891-5) [facility] [id number] 21:43:06 Test Item Value Reference Range Interpretation Comments RF (test code = <20 See_Comment [Automated message] 2403876312) The system [employer] generated this result transmitted ref erence range: <20 IU/m L. The reference range was not used to int erpret this result as normal/abnormal . Lab Interpretation (test Normal code = 16153-1) [facility] [id number] 21:43:06 Test Item Value Reference Range Interpretation Comments RF (test code = <20 See_Comment [Automated message] 0211950134) The system [employer] generated this result transmitted ref erence range: <20 IU/m L. The reference range was not used to int erpret this result as normal/abnormal . Lab Interpretation (test Normal code = 80558-5) [facility] StationANTI-NUCLEAR ANTIBODY [id number] 20:22:55 Test Item Value Reference Range Interpretation Comments SHIRA Titer by IFA <=1:80 (test code = 1923343632) SHIRA Pattern (test SHIRA screen was positive code = 2657423169) at the 1:80 dilution but with low titer results observed during subsequent testing. LUCILLE (test code = LUCILLE) Anti-nuclear antibodies are seen in a variety of autoimmune diseases and may also be seen in low titers in otherwise normal individuals without evidence of autoimmune disease. In general, a titer greater than or equal to 1:160 is considered significant. For further information, contact the appropriate Specialist. For additional SHIRA tests, refer to the Laboratory Test Directory. The specimen will be held for 7 days. [facility] Station[facility]I-NUCLEAR ANTIBODY [id number] 20:22:55 Test Item Value Reference Range Interpretation Comments SHIRA Titer by IFA <=1:80 (test code = 8034219350) SHIRA Pattern (test SHIRA screen was positive code = 7033809450) at the 1:80 dilution but with low titer results observed during subsequent testing. LUCILLE (test code = LUCILLE) Anti-nuclear antibodies are seen in a variety of autoimmune diseases and may also be seen in low titers in otherwise normal individuals without evidence of autoimmune disease. In general, a titer greater than or equal to 1:160 is considered significant. For further information, contact the appropriate Specialist. For additional SHIRA tests, refer to the Laboratory Test Directory. The specimen will be held for 7 days. [facility] StationANCA [id number] 18:12:04 Test Item Value Reference Range Interpretation Comments Myeloperoxidase (MPO) Negative Negative Antibodies, IgG Interpretation (test code = 63568-6) Proteinase 3 (PR3) Negative Negative Antibodies, IgG Interpretation (test code = 48063-3) Myeloperoxidase (MPO) <0.3 See_Comment [Auto mated Antibodies, IgG (test messag e] The code = 8600087138) system [facility] generated this result transmitted reference range : <=3.5 U/mL. The reference range was not used to interpret this result as normal/abnormal . Proteinase 3 (PR3) <0.7 See_Comment [Automat ed Antibodies, IgG (test messag e] The code = 3720920580) system [facility] generated this result transmitted reference range : <=2.0 U/mL. The reference range was not used to interpret this result as normal/abnormal . LUCILLE (test code = LUCILLE) Test ?Unit ? Negative ? ? ? Equivocal ? Positive Molly MPOs ? ? ? U/ml ? <3.5 ? 3.5-5.0 ? >5 Molly PR3s ? ? ? U/ml ? <2.0 ? 2.0-3.0 ? >3.0 In case of equivocal results, we recommend to retest the patient after 8 - 12 weeks. Lab Interpretation Normal (test code = 91027-9) [facility] [id number] 18:12:04 Test Item Value Reference Range Interpretation Comments Myeloperoxidase (MPO) Negative Negative Antibodies, IgG Interpretation (test code = 34773-6) Proteinase 3 (PR3) Negative Negative Antibodies, IgG Interpretation (test code = 86075-9) Myeloperoxidase (MPO) <0.3 See_Comment [Auto mated Antibodies, IgG (test messag e] The code = 7256837663) system [facility] generated this result transmitted reference range : <=3.5 U/mL. The reference range was not used to interpret this result as normal/abnormal . Proteinase 3 (PR3) <0.7 See_Comment [Automat ed Antibodies, IgG (test messag e] The code = 4748642298) system [facility] generated this result transmitted reference range : <=2.0 U/mL. The reference range was not used to interpret this result as normal/abnormal . LUCILLE (test code = LUCILLE) Test ?Unit ? Negative ? ? ? Equivocal ? Positive Molly MPOs ? ? ? U/ml ? <3.5 ? 3.5-5.0 ? >5 Molly PR3s ? ? ? U/ml ? <2.0 ? 2.0-3.0 ? >3.0 In case of equivocal results, we recommend to retest the patient after 8 - 12 weeks. Lab Interpretation Normal (test code = 68567-3) [facility] Test Item Value Reference Range Interpretation Comments MAGNESIUM (test code = 6359668018) 2.9 mg/dL 1.7-2.4 H Lab Interpretation (test code = Abnormal 61512-3) [facility] 10:47:40 Test Item Value Reference Range Interpretation Comments MAGNESIUM (test code = 2547388834) 2.9 mg/dL 1.7-2.4 H Lab Interpretation (test code = Abnormal 93366-0) [facility] WITH [id number] 09:31:49 Test Item Value Reference Range Interpretation Comments WBC (test code = See_Comment H [Automated 6690-2) message] The system which generated this result transmit britney reference range : 4.30 - 11.10 10*3/?L. The reference range was not used to interpret this result as normal/abnormal . RBC (test code = See_Comment L [Automated 789-8) message] The system which generated this result transmit britney reference range : 3.93 - 5.25 10*6/?L. The reference range was not used to interpret this result as normal/abnormal . HGB (test code = 10.8 g/dL 11.6-15.0 L 718-7) HCT (test code = 32.9 % 35.7-45.2 L 4544-3) MCV (test code = 86.8 fL 80.6-95.5 787-2) MCH (test code = 28.5 pg 25.9-32.8 785-6) MCHC (test code = 32.8 g/dL 31.6-35.1 786-4) RDW-SD (test code = 45.5 fL 39.0-49.9 17693-5) RDW-CV (test code = 14.4 % 12.0-15.5 788-0) PLT (test code = See_Comment [Automated 777-3) message] The system which generated this result transmit britney reference range : 166 - 358 10*3/ ?L. The reference range was not u sed to interpret th is result as normal/abnormal . MPV (test code = 10.0 fL 9.5-12.9 26734-3) NRBC/100 WBC (test See_Comment [Automat ed code = 8272308578) message] The system which generated this result transmit britney reference range : 0.0 - 10.0 /100 WBCs. The reference range was not used to interpret this result as normal/abnormal . NRBC x10^3 (test code <0.01 See_Comment [Auto mated = 5072745954) message] The system which generated this result transmit britney reference range : 10*3/?L. The reference range was not used to interpret this result as normal/abnormal . GRAN MAT (NEUT) % 93.4 % (test code = 770-8) IMM GRAN % (test code 1.50 % = 3205644792) LYMPH % (test code = 2.4 % 736-9) MONO % (test code = 2.6 % 5905-5) EOS % (test code = 0.0 % 713-8) BASO % (test code = 0.1 % 706-2) GRAN MAT x10^3(ANC) 17.74 10*3/uL 1.88-7.09 H (test code = 0593973179) IMM GRAN x10^3 (test 0.28 10*3/uL 0.00-0.06 H code = 9305661622) LYMPH x10^3 (test code 0.46 10*3/uL 1.32-3.29 L = 731-0) MONO x10^3 (test code 0.50 10*3/uL 0.33-0.92 = 742-7) EOS x10^3 (test code = <0.03 0.03-0.39 L 711-2) BASO x10^3 (test code <0.03 0.01-0.07 = 704-7) TOXIC CHANGES (test Present A code = 803-7) Lab Interpretation Abnormal (test code = 29630-6) [facility] WITH [id number] 09:31:49 Test Item Value Reference Range Interpretation Comments WBC (test code = See_Comment H [Automated 1290-2) message] The system which generated this result transmit britney reference range : 4.30 - 11.10 10*3/?L. The reference range was not used to interpret this result as normal/abnormal . RBC (test code = See_Comment L [Automated 789-8) message] The system which generated this result transmit britney reference range : 3.93 - 5.25 10*6/?L. The reference range was not used to interpret this result as normal/abnormal . HGB (test code = 10.8 g/dL 11.6-15.0 L 718-7) HCT (test code = 32.9 % 35.7-45.2 L 4544-3) MCV (test code = 86.8 fL 80.6-95.5 787-2) MCH (test code = 28.5 pg 25.9-32.8 785-6) MCHC (test code = 32.8 g/dL 31.6-35.1 786-4) RDW-SD (test code = 45.5 fL 39.0-49.9 01782-6) RDW-CV (test code = 14.4 % 12.0-15.5 788-0) PLT (test code = See_Comment [Automated 777-3) message] The system which generated this result transmit britney reference range : 166 - 358 10*3/ ?L. The reference range was not u sed to interpret th is result as normal/abnormal . MPV (test code = 10.0 fL 9.5-12.9 39587-8) NRBC/100 WBC (test See_Comment [Automat ed code = 0460919390) message] The system which generated this result transmit britney reference range : 0.0 - 10.0 /100 WBCs. The reference range was not used to interpret this result as normal/abnormal . NRBC x10^3 (test code <0.01 See_Comment [Auto mated = 1731949877) message] The system which generated this result transmit britney reference range : 10*3/?L. The reference range was not used to interpret this result as normal/abnormal . GRAN MAT (NEUT) % 93.4 % (test code = 770-8) IMM GRAN % (test code 1.50 % = 3330531661) LYMPH % (test code = 2.4 % 736-9) MONO % (test code = 2.6 % 5905-5) EOS % (test code = 0.0 % 713-8) BASO % (test code = 0.1 % 706-2) GRAN MAT x10^3(ANC) 17.74 10*3/uL 1.88-7.09 H (test code = 3425769969) IMM GRAN x10^3 (test 0.28 10*3/uL 0.00-0.06 H code = 4749827461) LYMPH x10^3 (test code 0.46 10*3/uL 1.32-3.29 L = 731-0) MONO x10^3 (test code 0.50 10*3/uL 0.33-0.92 = 742-7) EOS x10^3 (test code = <0.03 0.03-0.39 L 711-2) BASO x10^3 (test code <0.03 0.01-0.07 = 704-7) TOXIC CHANGES (test Present A code = 803-7) Lab Interpretation Abnormal (test code = 89385-4) [facility] METABOLIC PANEL (NA, K, CL, CO2, GLUCOSE, BUN, CREATININE, CA)2021-10-19 09:25:48 Test Item Value Reference Range Interpretation Comments NA (test code = 144 mmol/L 135-145 9096403367) K (test code = 4.5 mmol/L 3.5-5.0 0995051053) CL (test code = 111 mmol/L 98-108 H 7304215013) CO2 TOTAL (test code = 27 mmol/L 23-31 0749667940) AGAP (test code = 2-16 0959742535) BUN (test code = 30 mg/dL 7-23 H 4837198336) GLUCOSE (test code = 159 mg/dL 70-110 H 0581433454) CREATININE (test code = 0.81 mg/dL 0.50-1.04 6244735570) CALCIUM (test code = 8.2 mg/dL 8.6-10.6 L 2771595702) eGFR (test code = mL/min/1.73m2 9276101073) LUCILLE (test code = LUCILLE) Association of Glomerular Filtration Rate (GFR) and Staging of Kidney Disease* + --+ --+ ------+| GFR (mL/min/1.73 m2) ?| With Kidney Damage ?| ?Without Kidney Damage+ --------+ --------+ +| ?>90 ?| ?Stage one ?| ? Normal ?+ ---+ ---+ -------+| ?60-89 ?| ?Stage two ?| ? Decreased GFR ? + --+ --+ ------+| ?30-59 ?| ?Stage three ?| ? Stage three ? + --+ --+ ------+| ?15-29 ?| ?Stage four ? | ? Stage four ?+ ---+ ---+ -------+| ?<15 (or dialysis) ? ?| ?Stage five ? | ? Stage five ?+ ---+ ---+ -------+ *Each stage assumes the associated GFR level has been in effect for at least three months. ?Stages 1 to 5, with or without kidney disease, indicate chronic kidney disease. Notes: Determination of stages one and two (with eGFR >59mL/min/1.73 m2) requires estimation of kidney damage for at least three months as defined by structural or functional abnormalities of the kidney, manifested by either:Pathological abnormalities or Markers of kidney damage (including abnormalities in the composition of the blood or urine or abnormalities in imaging tests). Lab Interpretation Abnormal (test code = 28531-9) [facility] (NA, K, CL, CO2, GLUCOSE, BUN, CREATININE, CA)2021-10-19 09:25:48 Test Item Value Reference Range Interpretation Comments NA (test code = 144 mmol/L 135-145 7049366935) K (test code = 4.5 mmol/L 3.5-5.0 7067283547) CL (test code = 111 mmol/L 98-108 H 6444006565) CO2 TOTAL (test code = 27 mmol/L 23-31 7498576469) AGAP (test code = 2-16 1855018121) BUN (test code = 30 mg/dL 7-23 H 5451021497) GLUCOSE (test code = 159 mg/dL 70-110 H 2595453146) CREATININE (test code = 0.81 mg/dL 0.50-1.04 3517609777) CALCIUM (test code = 8.2 mg/dL 8.6-10.6 L 3017236254) eGFR (test code = mL/min/1.73m2 0031498721) LUCILLE (test code = LUCILLE) Association of Glomerular Filtration Rate (GFR) and Staging of Kidney Disease* + --+ --+ ------+| GFR (mL/min/1.73 m2) ?| With Kidney Damage ?| ?Without Kidney Damage+ --------+ --------+ +| ?>90 ?| ?Stage one ?| ? Normal ?+ ---+ ---+ -------+| ?60-89 ?| ?Stage two ?| ? Decreased GFR ? + --+ --+ ------+| ?30-59 ?| ?Stage three ?| ? Stage three ? + --+ --+ ------+| ?15-29 ?| ?Stage four ? | ? Stage four ?+ ---+ ---+ -------+| ?<15 (or dialysis) ? ?| ?Stage five ? | ? Stage five ?+ ---+ ---+ -------+ *Each stage assumes the associated GFR level has been in effect for at least three months. ?Stages 1 to 5, with or without kidney disease, indicate chronic kidney disease. Notes: Determination of stages one and two (with eGFR >59mL/min/1.73 m2) requires estimation of kidney damage for at least three months as defined by structural or functional abnormalities of the kidney, manifested by either:Pathological abnormalities or Markers of kidney damage (including abnormalities in the composition of the blood or urine or abnormalities in imaging tests). Lab Interpretation Abnormal (test code = 96999-2) [facility] GLUCOSE (AUTOMATED)2021-10-19 02:29:39 Test Item Value Reference Range Interpretation Comments POCT GLU (test code = 0780658811) 159 mg/dL 70-110 H Lab Interpretation (test code = Abnormal 62075-0) [facility] GLUCOSE (AUTOMATED)2021-10-19 02:29:39 Test Item Value Reference Range Interpretation Comments POCT GLU (test code = 0675056731) 159 mg/dL 70-110 H Lab Interpretation (test code = Abnormal 90580-2) [facility] [id number] 22:06:05 Test Item Value Reference Range Interpretation Comments SHIRA (test code = Positive Negative A 2330751805) LUCILLE (test code = LUCILLE) Negative - No Anti-Nuclear Antibodies detected by IFA.Positive - SHIRA IFA screen performed with a 1:80 dilution in adults and a 1:40 dilution in pediatrics. Any SHIRA "Positive" will have titer performed and reported separately. Lab Interpretation (test Abnormal code = 17329-8) [facility] [id number] 22:06:05 Test Item Value Reference Range Interpretation Comments SHIRA (test code = Positive Negative A 4993638059) LUCILLE (test code = LUCILLE) Negative - No Anti-Nuclear Antibodies detected by IFA.Positive - SHIRA IFA screen performed with a 1:80 dilution in adults and a 1:40 dilution in pediatrics. Any SHIRA "Positive" will have titer performed and reported separately. Lab Interpretation (test Abnormal code = 43886-7) [facility] HEMOGLOBIN (A1C)2021-10-18 17:16:16 Test Item Value Reference Range Interpretation Comments HGB A1C (test code = 6.0 % 4.0-5.7 H 4548-4) LUCILLE (test code = LUCILLE) Reference RangesNormal: <5.7%Prediabetes: 5.7 - 6.4%Diabetes: > 6.5% Lab Interpretation (test Abnormal code = 03104-3) [facility] HEM[facility]GLOBIN (A1C)2021-10-18 17:16:16 Test Item Value Reference Range Interpretation Comments HGB A1C (test code = 6.0 % 4.0-5.7 H 4548-4) LUCILLE (test code = LUCILLE) Reference RangesNormal: <5.7%Prediabetes: 5.7 - 6.4%Diabetes: > 6.5% Lab Interpretation (test Abnormal code = 10454-7) [facility] WITH [id number] 10:21:29 Test Item Value Reference Range Interpretation Comments WBC (test code = See_Comment H [Automated 4490-2) message] The system which generated this result transmit britney reference range : 4.30 - 11.10 10*3/?L. The reference range was not used to interpret this result as normal/abnormal . RBC (test code = See_Comment L [Automated 899-8) message] The system which generated this result transmit britney reference range : 3.93 - 5.25 10*6/?L. The reference range was not used to interpret this result as normal/abnormal . HGB (test code = 11.1 g/dL 11.6-15.0 L 718-7) HCT (test code = 33.2 % 35.7-45.2 L 4544-3) MCV (test code = 85.3 fL 80.6-95.5 787-2) MCH (test code = 28.5 pg 25.9-32.8 785-6) MCHC (test code = 33.4 g/dL 31.6-35.1 786-4) RDW-SD (test code = 44.0 fL 39.0-49.9 40974-4) RDW-CV (test code = 14.1 % 12.0-15.5 788-0) PLT (test code = See_Comment [Automated 777-3) message] The system which generated this result transmit britney reference range : 166 - 358 10*3/ ?L. The reference range was not u sed to interpret th is result as normal/abnormal . MPV (test code = 10.5 fL 9.5-12.9 19361-4) NRBC/100 WBC (test See_Comment [Automat ed code = 5454048675) message] The system which generated this result transmit britney reference range : 0.0 - 10.0 /100 WBCs. The reference range was not used to interpret this result as normal/abnormal . NRBC x10^3 (test code <0.01 See_Comment [Auto mated = 9877418820) message] The system which generated this result transmit britney reference range : 10*3/?L. The reference range was not used to interpret this result as normal/abnormal . GRAN MAT (NEUT) % 94.3 % (test code = 770-8) IMM GRAN % (test code 1.00 % = 1892096627) LYMPH % (test code = 2.1 % 736-9) MONO % (test code = 2.5 % 5905-5) EOS % (test code = 0.0 % 713-8) BASO % (test code = 0.1 % 706-2) GRAN MAT x10^3(ANC) 18.69 10*3/uL 1.88-7.09 H (test code = 6402112331) IMM GRAN x10^3 (test 0.20 10*3/uL 0.00-0.06 H code = 5390454729) LYMPH x10^3 (test code 0.42 10*3/uL 1.32-3.29 L = 731-0) MONO x10^3 (test code 0.50 10*3/uL 0.33-0.92 = 742-7) EOS x10^3 (test code = <0.03 0.03-0.39 L 711-2) BASO x10^3 (test code <0.03 0.01-0.07 = 704-7) TOXIC CHANGES (test Present A code = 803-7) Lab Interpretation Abnormal (test code = 80830-2) [facility] WITH [id number] 10:21:29 Test Item Value Reference Range Interpretation Comments WBC (test code = See_Comment H [Automated 9090-2) message] The system which generated this result transmit britney reference range : 4.30 - 11.10 10*3/?L. The reference range was not used to interpret this result as normal/abnormal . RBC (test code = See_Comment L [Automated 179-8) message] The system which generated this result transmit britney reference range : 3.93 - 5.25 10*6/?L. The reference range was not used to interpret this result as normal/abnormal . HGB (test code = 11.1 g/dL 11.6-15.0 L 718-7) HCT (test code = 33.2 % 35.7-45.2 L 4544-3) MCV (test code = 85.3 fL 80.6-95.5 787-2) MCH (test code = 28.5 pg 25.9-32.8 785-6) MCHC (test code = 33.4 g/dL 31.6-35.1 786-4) RDW-SD (test code = 44.0 fL 39.0-49.9 72174-9) RDW-CV (test code = 14.1 % 12.0-15.5 788-0) PLT (test code = See_Comment [Automated 777-3) message] The system which generated this result transmit britney reference range : 166 - 358 10*3/ ?L. The reference range was not u sed to interpret th is result as normal/abnormal . MPV (test code = 10.5 fL 9.5-12.9 77262-4) NRBC/100 WBC (test See_Comment [Automat ed code = 1817908512) message] The system which generated this result transmit britney reference range : 0.0 - 10.0 /100 WBCs. The reference range was not used to interpret this result as normal/abnormal . NRBC x10^3 (test code <0.01 See_Comment [Auto mated = 9707326038) message] The system which generated this result transmit britney reference range : 10*3/?L. The reference range was not used to interpret this result as normal/abnormal . GRAN MAT (NEUT) % 94.3 % (test code = 770-8) IMM GRAN % (test code 1.00 % = 1702542740) LYMPH % (test code = 2.1 % 736-9) MONO % (test code = 2.5 % 5905-5) EOS % (test code = 0.0 % 713-8) BASO % (test code = 0.1 % 706-2) GRAN MAT x10^3(ANC) 18.69 10*3/uL 1.88-7.09 H (test code = 6459506207) IMM GRAN x10^3 (test 0.20 10*3/uL 0.00-0.06 H code = 0396384026) LYMPH x10^3 (test code 0.42 10*3/uL 1.32-3.29 L = 731-0) MONO x10^3 (test code 0.50 10*3/uL 0.33-0.92 = 742-7) EOS x10^3 (test code = <0.03 0.03-0.39 L 711-2) BASO x10^3 (test code <0.03 0.01-0.07 = 704-7) TOXIC CHANGES (test Present A code = 803-7) Lab Interpretation Abnormal (test code = 88900-7) [facility] METABOLIC PANEL (NA, K, CL, CO2, GLUCOSE, BUN, CREATININE, CA)2021-10-18 09:49:57 Test Item Value Reference Range Interpretation Comments NA (test code = 141 mmol/L 135-145 0430843649) K (test code = 4.9 mmol/L 3.5-5.0 3346840654) CL (test code = 107 mmol/L 98-108 4941313120) CO2 TOTAL (test code = 26 mmol/L 23-31 2909690736) AGAP (test code = 2-16 9336237714) BUN (test code = 30 mg/dL 7-23 H 5258907544) GLUCOSE (test code = 166 mg/dL 70-110 H 7982571805) CREATININE (test code = 0.76 mg/dL 0.50-1.04 3211701463) CALCIUM (test code = 8.2 mg/dL 8.6-10.6 L 7751161476) eGFR (test code = mL/min/1.73m2 5481591286) LUCILLE (test code = LUCILLE) Association of Glomerular Filtration Rate (GFR) and Staging of Kidney Disease* + --+ --+ ------+| GFR (mL/min/1.73 m2) ?| With Kidney Damage ?| ?Without Kidney Damage+ --------+ --------+ +| ?>90 ?| ?Stage one ?| ? Normal ?+ ---+ ---+ -------+| ?60-89 ?| ?Stage two ?| ? Decreased GFR ? + --+ --+ ------+| ?30-59 ?| ?Stage three ?| ? Stage three ? + --+ --+ ------+| ?15-29 ?| ?Stage four ? | ? Stage four ?+ ---+ ---+ -------+| ?<15 (or dialysis) ? ?| ?Stage five ? | ? Stage five ?+ ---+ ---+ -------+ *Each stage assumes the associated GFR level has been in effect for at least three months. ?Stages 1 to 5, with or without kidney disease, indicate chronic kidney disease. Notes: Determination of stages one and two (with eGFR >59mL/min/1.73 m2) requires estimation of kidney damage for at least three months as defined by structural or functional abnormalities of the kidney, manifested by either:Pathological abnormalities or Markers of kidney damage (including abnormalities in the composition of the blood or urine or abnormalities in imaging tests). Lab Interpretation Abnormal (test code = 95487-0) [facility] 09:49:57 Test Item Value Reference Range Interpretation Comments MAGNESIUM (test code = 2730007460) 3.0 mg/dL 1.7-2.4 H Lab Interpretation (test code = Abnormal 80427-4) [facility]20[facility]15 09:49:57 Test Item Value Reference Range Interpretation Comments PHOSPHORUS (test code = 1867868333) 4.0 mg/dL 2.5-5.0 Lab Interpretation (test code = Normal 67738-7) [facility] METABOLIC PANEL (NA, K, CL, CO2, GLUCOSE, BUN, CREATININE, CA)2021-10-18 09:49:57 Test Item Value Reference Range Interpretation Comments NA (test code = 141 mmol/L 135-145 4446732242) K (test code = 4.9 mmol/L 3.5-5.0 8990020579) CL (test code = 107 mmol/L 98-108 3706065755) CO2 TOTAL (test code = 26 mmol/L 23-31 3304674348) AGAP (test code = 2-16 4371858501) BUN (test code = 30 mg/dL 7-23 H 4503822224) GLUCOSE (test code = 166 mg/dL 70-110 H 6728899553) CREATININE (test code = 0.76 mg/dL 0.50-1.04 7249815573) CALCIUM (test code = 8.2 mg/dL 8.6-10.6 L 2535590050) eGFR (test code = mL/min/1.73m2 1674109787) LUCILLE (test code = LUCILLE) Association of Glomerular Filtration Rate (GFR) and Staging of Kidney Disease* + --+ --+ ------+| GFR (mL/min/1.73 m2) ?| With Kidney Damage ?| ?Without Kidney Damage+ --------+ --------+ +| ?>90 ?| ?Stage one ?| ? Normal ?+ ---+ ---+ -------+| ?60-89 ?| ?Stage two ?| ? Decreased GFR ? + --+ --+ ------+| ?30-59 ?| ?Stage three ?| ? Stage three ? + --+ --+ ------+| ?15-29 ?| ?Stage four ? | ? Stage four ?+ ---+ ---+ -------+| ?<15 (or dialysis) ? ?| ?Stage five ? | ? Stage five ?+ ---+ ---+ -------+ *Each stage assumes the associated GFR level has been in effect for at least three months. ?Stages 1 to 5, with or without kidney disease, indicate chronic kidney disease. Notes: Determination of stages one and two (with eGFR >59mL/min/1.73 m2) requires estimation of kidney damage for at least three months as defined by structural or functional abnormalities of the kidney, manifested by either:Pathological abnormalities or Markers of kidney damage (including abnormalities in the composition of the blood or urine or abnormalities in imaging tests). Lab Interpretation Abnormal (test code = 01250-7) [facility] 09:49:57 Test Item Value Reference Range Interpretation Comments MAGNESIUM (test code = 4226340839) 3.0 mg/dL 1.7-2.4 H Lab Interpretation (test code = Abnormal 59805-0) [facility]2022-[facility]-15 09:49:57 Test Item Value Reference Range Interpretation Comments PHOSPHORUS (test code = 0213160467) 4.0 mg/dL 2.5-5.0 Lab Interpretation (test code = Normal 60760-5) [facility]-AB WITH [id number] 02:31:06 Test Item Value Reference Range Interpretation Comments HIV Negative Negative Semi-quantitative (test code = 41948-5) LUCILLE (test code = Non-reactive for HIV-1 LUCILLE) antigen and HIV-1/HIV-2 antibodies. ?No laboratory evidence of HIV infection. ?Repeat in 2-4 weeks if acute HIV infection is suspected. [facility] AG-AB WITH [id number] 02:31:06 Test Item Value Reference Range Interpretation Comments HIV Negative Negative Semi-quantitative (test code = 86044-5) LUCILLE (test code = Non-reactive for HIV-1 LUCILLE) antigen and HIV-1/HIV-2 antibodies. ?No laboratory evidence of HIV infection. ?Repeat in 2-4 weeks if acute HIV infection is suspected. [facility] (NA, K, CL, CO2, GLUCOSE, BUN, CREATININE, CA)2021-10-18 01:11:26 Test Item Value Reference Range Interpretation Comments NA (test code = 141 mmol/L 135-145 9464976019) K (test code = 4.6 mmol/L 3.5-5.0 1569562666) CL (test code = 106 mmol/L 98-108 0198162367) CO2 TOTAL (test code = 26 mmol/L 23-31 2953844675) AGAP (test code = 2-16 5603526743) BUN (test code = 28 mg/dL 7-23 H 9535376794) GLUCOSE (test code = 180 mg/dL 70-110 H 6183659798) CREATININE (test code = 0.82 mg/dL 0.50-1.04 4668565178) CALCIUM (test code = 8.3 mg/dL 8.6-10.6 L 6988832805) eGFR (test code = mL/min/1.73m2 9553048921) LUCILLE (test code = LUCILLE) Association of Glomerular Filtration Rate (GFR) and Staging of Kidney Disease* + --+ --+ ------+| GFR (mL/min/1.73 m2) ?| With Kidney Damage ?| ?Without Kidney Damage+ --------+ --------+ +| ?>90 ?| ?Stage one ?| ? Normal ?+ ---+ ---+ -------+| ?60-89 ?| ?Stage two ?| ? Decreased GFR ? + --+ --+ ------+| ?30-59 ?| ?Stage three ?| ? Stage three ? + --+ --+ ------+| ?15-29 ?| ?Stage four ? | ? Stage four ?+ ---+ ---+ -------+| ?<15 (or dialysis) ? ?| ?Stage five ? | ? Stage five ?+ ---+ ---+ -------+ *Each stage assumes the associated GFR level has been in effect for at least three months. ?Stages 1 to 5, with or without kidney disease, indicate chronic kidney disease. Notes: Determination of stages one and two (with eGFR >59mL/min/1.73 m2) requires estimation of kidney damage for at least three months as defined by structural or functional abnormalities of the kidney, manifested by either:Pathological abnormalities or Markers of kidney damage (including abnormalities in the composition of the blood or urine or abnormalities in imaging tests). Lab Interpretation Abnormal (test code = 32107-1) [facility] METABOLIC PANEL (NA, K, CL, CO2, GLUCOSE, BUN, CREATININE, CA)2021-10-18 01:11:26 Test Item Value Reference Range Interpretation Comments NA (test code = 141 mmol/L 135-145 5314088830) K (test code = 4.6 mmol/L 3.5-5.0 4182125422) CL (test code = 106 mmol/L 98-108 4157106501) CO2 TOTAL (test code = 26 mmol/L 23-31 0156977771) AGAP (test code = 2-16 0200648584) BUN (test code = 28 mg/dL 7-23 H 2559555245) GLUCOSE (test code = 180 mg/dL 70-110 H 2788448029) CREATININE (test code = 0.82 mg/dL 0.50-1.04 9320640616) CALCIUM (test code = 8.3 mg/dL 8.6-10.6 L 5024736356) eGFR (test code = mL/min/1.73m2 4299610064) LUCILLE (test code = LUCILLE) Association of Glomerular Filtration Rate (GFR) and Staging of Kidney Disease* + --+ --+ ------+| GFR (mL/min/1.73 m2) ?| With Kidney Damage ?| ?Without Kidney Damage+ --------+ --------+ +| ?>90 ?| ?Stage one ?| ? Normal ?+ ---+ ---+ -------+| ?60-89 ?| ?Stage two ?| ? Decreased GFR ? + --+ --+ ------+| ?30-59 ?| ?Stage three ?| ? Stage three ? + --+ --+ ------+| ?15-29 ?| ?Stage four ? | ? Stage four ?+ ---+ ---+ -------+| ?<15 (or dialysis) ? ?| ?Stage five ? | ? Stage five ?+ ---+ ---+ -------+ *Each stage assumes the associated GFR level has been in effect for at least three months. ?Stages 1 to 5, with or without kidney disease, indicate chronic kidney disease. Notes: Determination of stages one and two (with eGFR >59mL/min/1.73 m2) requires estimation of kidney damage for at least three months as defined by structural or functional abnormalities of the kidney, manifested by either:Pathological abnormalities or Markers of kidney damage (including abnormalities in the composition of the blood or urine or abnormalities in imaging tests). Lab Interpretation Abnormal (test code = 19802-1) [id number] 22:06:03 Test Item Value Reference Range Interpretation Comments NT-proBNP (test code 250 pg/mL See_Comment H [Autom ated = 9483856733) message] The system which generated this result transmitted reference range : <=125. The reference range was not used to interpret this result as normal/abnormal . LUCILLE (test code = LUCILLE) Biotin has been reported to cause a negative bias, interpret results relative to patient's use of biotin. Lab Interpretation Abnormal (test code = 01186-5) [facility] [id number] 22:06:03 Test Item Value Reference Range Interpretation Comments NT-proBNP (test code 250 pg/mL See_Comment H [Autom ated = 8134343756) message] The system which generated this result transmitted reference range : <=125. The reference range was not used to interpret this result as normal/abnormal . LUCILLE (test code = LUCILLE) Biotin has been reported to cause a negative bias, interpret results relative to patient's use of biotin. Lab Interpretation Abnormal (test code = 65439-7) [facility]COOX+NA+K+GLU+CA2+2021-10-17 21:42:22 Test Item Value Reference Range Interpretation Comments PH (test code = 2) 7.35-7.45 PCO2 (test code = See_Comment [Automat ed message] 7787654441) The system [employer] generated this result transmit britney reference range : 35 - 45 mmHg. The reference range was not used to interpret this result as normal/abnormal . PO2 (test code = See_Comment H [Automated message] 1466620678) The system [employer] generated this result transmit britney reference range : 80 - 100 mmHg. The reference range was not used to interpret this result as normal/abnormal . HCO3 (test code = See_Comment [Automate d message] 2956687871) The system [employer] generated this result transmit britney reference range : 22 - 26 mEq/L. The reference range was not used to interpret this result as normal/abnormal . BE (test code = See_Comment [Automated message] 9615910476) The system [employer] generated this result transmit britney reference range : -3.0 - 3.0 mEq/ L. The reference r nicholas was not used to interpret this result as normal/abnormal . THB (test code = 13.0 g/dL 12.0-16.0 9107953276) %O2HB (test code = 98.9 % 94.0-99.0 3294125383) %COHB ART (test code = 0.3 % 0.0-1.5 4769309310) %METHB ART (test code = 0.0 % 0.4-1.5 L 7928920391) VOL%O2 ART (test code = 18.5 % 15.0-23.0 5177972390) NA (test code = 139 mmol/L 135-145 7317232597) K+ (test code = 4.6 mmol/L 3.5-5.0 1209470657) AC CA IONZ (test code = 4.50 mg/dL 4.50-5.30 0999822916) GLUCOSE (test code = 166 mg/dL 70-110 H 8588741296) Lab Interpretation Abnormal (test code = 26052-9) [facility]+NA+K+GLU+CA2+2021-10-17 21:42:22 Test Item Value Reference Range Interpretation Comments PH (test code = 2) 7.35-7.45 PCO2 (test code = See_Comment [Automat ed message] 3410680779) The system [employer] generated this result transmit britney reference range : 35 - 45 mmHg. The reference range was not used to interpret this result as normal/abnormal . PO2 (test code = See_Comment H [Automated message] 6914751869) The system [employer] generated this result transmit britney reference range : 80 - 100 mmHg. The reference range was not used to interpret this result as normal/abnormal . HCO3 (test code = See_Comment [Automate d message] 2374555378) The system [employer] generated this result transmit britney reference range : 22 - 26 mEq/L. The reference range was not used to interpret this result as normal/abnormal . BE (test code = See_Comment [Automated message] 9352982372) The system [employer] generated this result transmit britney reference range : -3.0 - 3.0 mEq/ L. The reference r nicholas was not used to interpret this result as normal/abnormal . THB (test code = 13.0 g/dL 12.0-16.0 9955666049) %O2HB (test code = 98.9 % 94.0-99.0 9813594898) %COHB ART (test code = 0.3 % 0.0-1.5 5405563381) %METHB ART (test code = 0.0 % 0.4-1.5 L 3351760465) VOL%O2 ART (test code = 18.5 % 15.0-23.0 7383783191) NA (test code = 139 mmol/L 135-145 3799898743) K+ (test code = 4.6 mmol/L 3.5-5.0 8310493052) AC CA IONZ (test code = 4.50 mg/dL 4.50-5.30 8353252966) GLUCOSE (test code = 166 mg/dL 70-110 H 1738753941) Lab Interpretation Abnormal (test code = 56302-7) [facility] WITH [id number] 11:01:03 Test Item Value Reference Range Interpretation Comments WBC (test code = See_Comment H [Automated 0790-2) message] The system which generated this result transmit britney reference range : 4.30 - 11.10 10*3/?L. The reference range was not used to interpret this result as normal/abnormal . RBC (test code = See_Comment [Automated 519-8) message] The system which generated this result transmit britney reference range : 3.93 - 5.25 10*6/?L. The reference range was not used to interpret this result as normal/abnormal . HGB (test code = 12.3 g/dL 11.6-15.0 718-7) HCT (test code = 37.0 % 35.7-45.2 4544-3) MCV (test code = 86.4 fL 80.6-95.5 787-2) MCH (test code = 28.7 pg 25.9-32.8 785-6) MCHC (test code = 33.2 g/dL 31.6-35.1 786-4) RDW-SD (test code = 44.5 fL 39.0-49.9 58740-0) RDW-CV (test code = 14.1 % 12.0-15.5 788-0) PLT (test code = See_Comment [Automated 777-3) message] The system which generated this result transmit britney reference range : 166 - 358 10*3/ ?L. The reference range was not u sed to interpret th is result as normal/abnormal . MPV (test code = 11.0 fL 9.5-12.9 85425-5) NRBC/100 WBC (test See_Comment [Automat ed code = 6981448762) message] The system which generated this result transmit britney reference range : 0.0 - 10.0 /100 WBCs. The reference range was not used to interpret this result as normal/abnormal . NRBC x10^3 (test code <0.01 See_Comment [Auto mated = 2226139811) message] The system which generated this result transmit britney reference range : 10*3/?L. The reference range was not used to interpret this result as normal/abnormal . GRAN MAT (NEUT) % 91.6 % (test code = 770-8) IMM GRAN % (test code 1.40 % = 7096950014) LYMPH % (test code = 5.5 % 736-9) MONO % (test code = 1.4 % 5905-5) EOS % (test code = 0.0 % 713-8) BASO % (test code = 0.1 % 706-2) GRAN MAT x10^3(ANC) 17.75 10*3/uL 1.88-7.09 H (test code = 4719368042) IMM GRAN x10^3 (test 0.27 10*3/uL 0.00-0.06 H code = 3287222292) LYMPH x10^3 (test code 1.06 10*3/uL 1.32-3.29 L = 731-0) MONO x10^3 (test code 0.28 10*3/uL 0.33-0.92 L = 742-7) EOS x10^3 (test code = <0.03 0.03-0.39 L 711-2) BASO x10^3 (test code <0.03 0.01-0.07 = 704-7) TOXIC CHANGES (test Present A code = 803-7) Lab Interpretation Abnormal (test code = 86876-3) [facility] WITH [id number] 11:01:03 Test Item Value Reference Range Interpretation Comments WBC (test code = See_Comment H [Automated 9212-2) message] The system which generated this result transmit britney reference range : 4.30 - 11.10 10*3/?L. The reference range was not used to interpret this result as normal/abnormal . RBC (test code = See_Comment [Automated 249-8) message] The system which generated this result transmit britney reference range : 3.93 - 5.25 10*6/?L. The reference range was not used to interpret this result as normal/abnormal . HGB (test code = 12.3 g/dL 11.6-15.0 718-7) HCT (test code = 37.0 % 35.7-45.2 4544-3) MCV (test code = 86.4 fL 80.6-95.5 787-2) MCH (test code = 28.7 pg 25.9-32.8 785-6) MCHC (test code = 33.2 g/dL 31.6-35.1 786-4) RDW-SD (test code = 44.5 fL 39.0-49.9 72676-1) RDW-CV (test code = 14.1 % 12.0-15.5 788-0) PLT (test code = See_Comment [Automated 777-3) message] The system which generated this result transmit britney reference range : 166 - 358 10*3/ ?L. The reference range was not u sed to interpret th is result as normal/abnormal . MPV (test code = 11.0 fL 9.5-12.9 86527-3) NRBC/100 WBC (test See_Comment [Automat ed code = 4973409309) message] The system which generated this result transmit britney reference range : 0.0 - 10.0 /100 WBCs. The reference range was not used to interpret this result as normal/abnormal . NRBC x10^3 (test code <0.01 See_Comment [Auto mated = 6754051539) message] The system which generated this result transmit britney reference range : 10*3/?L. The reference range was not used to interpret this result as normal/abnormal . GRAN MAT (NEUT) % 91.6 % (test code = 770-8) IMM GRAN % (test code 1.40 % = 5358391541) LYMPH % (test code = 5.5 % 736-9) MONO % (test code = 1.4 % 5905-5) EOS % (test code = 0.0 % 713-8) BASO % (test code = 0.1 % 706-2) GRAN MAT x10^3(ANC) 17.75 10*3/uL 1.88-7.09 H (test code = 2727962384) IMM GRAN x10^3 (test 0.27 10*3/uL 0.00-0.06 H code = 0107578483) LYMPH x10^3 (test code 1.06 10*3/uL 1.32-3.29 L = 731-0) MONO x10^3 (test code 0.28 10*3/uL 0.33-0.92 L = 742-7) EOS x10^3 (test code = <0.03 0.03-0.39 L 711-2) BASO x10^3 (test code <0.03 0.01-0.07 = 704-7) TOXIC CHANGES (test Present A code = 803-7) Lab Interpretation Abnormal (test code = 82624-9) [facility] METABOLIC PANEL (NA, K, CL, CO2, GLUCOSE, BUN, CREATININE, CA)2021-10-17 10:54:32 Test Item Value Reference Range Interpretation Comments NA (test code = 135 mmol/L 135-145 5945983360) K (test code = 5.2 mmol/L 3.5-5.0 H Slight 9553846583) hemolysis CL (test code = 101 mmol/L 98-108 3219105626) CO2 TOTAL (test code 27 mmol/L 23-31 = 7881234828) AGAP (test code = 2-16 1950939820) BUN (test code = 21 mg/dL 7-23 Slight 9020707050) hemolysis GLUCOSE (test code = 153 mg/dL 70-110 H 5221605064) CREATININE (test code 0.71 mg/dL 0.50-1.04 = 9050920647) CALCIUM (test code = 8.3 mg/dL 8.6-10.6 L 3227848654) eGFR (test code = mL/min/1.73m2 4740157329) LUCILLE (test code = LUCILLE) Association of Glomerular Filtration Rate (GFR) and Staging of Kidney Disease* + -----+ --------+ +| GFR (mL/min/1.73 m2) ?| With Kidney Damage ?| ?Without Kidney Damage+ +------- +---- --+| ?>90 ?| ?Stage one ?| ? Normal ?+ ------+ ---------+--------- +| ?60-89 ?| ?Stage two ?| ? Decreased GFR ? + -----+ --------+ +| ?30-59 ?| ?Stage three ?| ? Stage three ? + -----+ --------+ +| ?15-29 ?| ?Stage four ? | ? Stage four ?+ ------+ ---------+--------- +| ?<15 (or dialysis) ? ?| ?Stage five ? | ? Stage five ?+ ------+ ---------+--------- + *Each stage assumes the associated GFR level has been in effect for at least three months. ?Stages 1 to 5, with or without kidney disease, indicate chronic kidney disease. Notes: Determination of stages one and two (with eGFR >59mL/min/1.73 m2) requires estimation of kidney damage for at least three months as defined by structural or functional abnormalities of the kidney, manifested by either:Pathological abnormalities or Markers of kidney damage (including abnormalities in the composition of the blood or urine or abnormalities in imaging tests). Lab Interpretation Abnormal (test code = 37333-0) [facility] Test Item Value Reference Range Interpretation Comments MAGNESIUM (test code = 0406883215) 2.2 mg/dL 1.7-2.4 Lab Interpretation (test code = Normal 57350-6) [facility] 10:54:32 Test Item Value Reference Range Interpretation Comments PHOSPHORUS (test code = 6142898258) 5.9 mg/dL 2.5-5.0 H Lab Interpretation (test code = Abnormal 79699-5) [facility] (NA, K, CL, CO2, GLUCOSE, BUN, CREATININE, CA)2021-10-17 10:54:32 Test Item Value Reference Range Interpretation Comments NA (test code = 135 mmol/L 135-145 3568385642) K (test code = 5.2 mmol/L 3.5-5.0 H Slight 6284058596) hemolysis CL (test code = 101 mmol/L 98-108 2326723304) CO2 TOTAL (test code 27 mmol/L 23-31 = 9561490198) AGAP (test code = 2-16 8700400300) BUN (test code = 21 mg/dL 7-23 Slight 2620742554) hemolysis GLUCOSE (test code = 153 mg/dL 70-110 H 2423597964) CREATININE (test code 0.71 mg/dL 0.50-1.04 = 2715882601) CALCIUM (test code = 8.3 mg/dL 8.6-10.6 L 9535606538) eGFR (test code = mL/min/1.73m2 7090754309) LUCILLE (test code = LUCILLE) Association of Glomerular Filtration Rate (GFR) and Staging of Kidney Disease* + -----+ --------+ +| GFR (mL/min/1.73 m2) ?| With Kidney Damage ?| ?Without Kidney Damage+ +------- +---- --+| ?>90 ?| ?Stage one ?| ? Normal ?+ ------+ ---------+--------- +| ?60-89 ?| ?Stage two ?| ? Decreased GFR ? + -----+ --------+ +| ?30-59 ?| ?Stage three ?| ? Stage three ? + -----+ --------+ +| ?15-29 ?| ?Stage four ? | ? Stage four ?+ ------+ ---------+--------- +| ?<15 (or dialysis) ? ?| ?Stage five ? | ? Stage five ?+ ------+ ---------+--------- + *Each stage assumes the associated GFR level has been in effect for at least three months. ?Stages 1 to 5, with or without kidney disease, indicate chronic kidney disease. Notes: Determination of stages one and two (with eGFR >59mL/min/1.73 m2) requires estimation of kidney damage for at least three months as defined by structural or functional abnormalities of the kidney, manifested by either:Pathological abnormalities or Markers of kidney damage (including abnormalities in the composition of the blood or urine or abnormalities in imaging tests). Lab Interpretation Abnormal (test code = 68752-1) [facility] Test Item Value Reference Range Interpretation Comments MAGNESIUM (test code = 3813731983) 2.2 mg/dL 1.7-2.4 Lab Interpretation (test code = Normal 38932-8) [facility] 10:54:32 Test Item Value Reference Range Interpretation Comments PHOSPHORUS (test code = 9569992042) 5.9 mg/dL 2.5-5.0 H Lab Interpretation (test code = Abnormal 56808-6) [facility] [id number] 10:53:06 Test Item Value Reference Range Interpretation Comments ESR (test code = See_Comment H [Automated message] 8141968617) The system [employer] generated this result transmitted ref erence range: 0 - 20 m m/HR. The reference r nicholas was not used to interpret this result as normal/abnor mal. Lab Interpretation (test Abnormal code = 93732-9) [facility] [id number] 10:53:06 Test Item Value Reference Range Interpretation Comments ESR (test code = See_Comment H [Automated message] 8117742744) The system [employer] generated this result transmitted ref erence range: 0 - 20 m m/HR. The reference r nicholas was not used to interpret this result as normal/abnor mal. Lab Interpretation (test Abnormal code = 27588-1) [facility]2022-02-13 11:13:05 Test Item Value Reference Range Interpretation Comments MAGNESIUM (test code = 8680779741) 2.3 mg/dL 1.7-2.4 Lab Interpretation (test code = Normal 77089-3) [facility] 11:13:05 Test Item Value Reference Range Interpretation Comments PHOSPHORUS (test code = 8017565577) 3.4 mg/dL 2.5-5.0 Lab Interpretation (test code = Normal 78762-4) [facility] 11:13:05 Test Item Value Reference Range Interpretation Comments MAGNESIUM (test code = 8172903777) 2.3 mg/dL 1.7-2.4 Lab Interpretation (test code = Normal 85198-6) [facility]13 11:13:05 Test Item Value Reference Range Interpretation Comments PHOSPHORUS (test code = 1279420674) 3.4 mg/dL 2.5-5.0 Lab Interpretation (test code = Normal 09111-2) [facility] METABOLIC PANEL (NA, K, CL, CO2, GLUCOSE, BUN, CREATININE, CA)2021-10-16 11:13:04 Test Item Value Reference Range Interpretation Comments NA (test code = 135 mmol/L 135-145 1451624111) K (test code = 4.6 mmol/L 3.5-5.0 3485273097) CL (test code = 102 mmol/L 98-108 6378649800) CO2 TOTAL (test code = 29 mmol/L 23-31 3586126564) AGAP (test code = 2-16 3948211409) BUN (test code = 24 mg/dL 7-23 H 8027274647) GLUCOSE (test code = 90 mg/dL 70-110 2533513698) CREATININE (test code = 0.87 mg/dL 0.50-1.04 6679284937) CALCIUM (test code = 8.0 mg/dL 8.6-10.6 L 8224088987) eGFR (test code = mL/min/1.73m2 0696916959) LUCILLE (test code = LUCILLE) Association of Glomerular Filtration Rate (GFR) and Staging of Kidney Disease* + --+ --+ ------+| GFR (mL/min/1.73 m2) ?| With Kidney Damage ?| ?Without Kidney Damage+ --------+ --------+ +| ?>90 ?| ?Stage one ?| ? Normal ?+ ---+ ---+ -------+| ?60-89 ?| ?Stage two ?| ? Decreased GFR ? + --+ --+ ------+| ?30-59 ?| ?Stage three ?| ? Stage three ? + --+ --+ ------+| ?15-29 ?| ?Stage four ? | ? Stage four ?+ ---+ ---+ -------+| ?<15 (or dialysis) ? ?| ?Stage five ? | ? Stage five ?+ ---+ ---+ -------+ *Each stage assumes the associated GFR level has been in effect for at least three months. ?Stages 1 to 5, with or without kidney disease, indicate chronic kidney disease. Notes: Determination of stages one and two (with eGFR >59mL/min/1.73 m2) requires estimation of kidney damage for at least three months as defined by structural or functional abnormalities of the kidney, manifested by either:Pathological abnormalities or Markers of kidney damage (including abnormalities in the composition of the blood or urine or abnormalities in imaging tests). Lab Interpretation Abnormal (test code = 97446-6) [facility] METABOLIC PANEL (NA, K, CL, CO2, GLUCOSE, BUN, CREATININE, CA)2021-10-16 11:13:04 Test Item Value Reference Range Interpretation Comments NA (test code = 135 mmol/L 135-145 2239665516) K (test code = 4.6 mmol/L 3.5-5.0 7113338716) CL (test code = 102 mmol/L 98-108 7555928724) CO2 TOTAL (test code = 29 mmol/L 23-31 2552783021) AGAP (test code = 2-16 0526148031) BUN (test code = 24 mg/dL 7-23 H 6110526732) GLUCOSE (test code = 90 mg/dL 70-110 9012501412) CREATININE (test code = 0.87 mg/dL 0.50-1.04 0062083853) CALCIUM (test code = 8.0 mg/dL 8.6-10.6 L 3765769152) eGFR (test code = mL/min/1.73m2 8978018259) LUCILLE (test code = LUCILLE) Association of Glomerular Filtration Rate (GFR) and Staging of Kidney Disease* + --+ --+ ------+| GFR (mL/min/1.73 m2) ?| With Kidney Damage ?| ?Without Kidney Damage+ --------+ --------+ +| ?>90 ?| ?Stage one ?| ? Normal ?+ ---+ ---+ -------+| ?60-89 ?| ?Stage two ?| ? Decreased GFR ? + --+ --+ ------+| ?30-59 ?| ?Stage three ?| ? Stage three ? + --+ --+ ------+| ?15-29 ?| ?Stage four ? | ? Stage four ?+ ---+ ---+ -------+| ?<15 (or dialysis) ? ?| ?Stage five ? | ? Stage five ?+ ---+ ---+ -------+ *Each stage assumes the associated GFR level has been in effect for at least three months. ?Stages 1 to 5, with or without kidney disease, indicate chronic kidney disease. Notes: Determination of stages one and two (with eGFR >59mL/min/1.73 m2) requires estimation of kidney damage for at least three months as defined by structural or functional abnormalities of the kidney, manifested by either:Pathological abnormalities or Markers of kidney damage (including abnormalities in the composition of the blood or urine or abnormalities in imaging tests). Lab Interpretation Abnormal (test code = 61547-1) [facility] + LACTIC [id number] 10:59:55 Test Item Value Reference Range Interpretation Comments PH (test code = 2) 7.35-7.45 PCO2 (test code = See_Comment [Automat ed 3725283888) message] The sy stem which generated this result transmitted reference range : 35 - 45 mmHg. The reference range was not used to interpret this result as normal/abnormal . PO2 (test code = See_Comment L [Automated 7152412979) message] The sy stem which generated this result transmitted reference range : 80 - 100 mmHg. The reference range was not used to interpret this result as normal/abnormal . HCO3 (test code = See_Comment H [Automate d 7818011647) message] The sy stem which generated this result transmitted reference range : 22 - 26 mEq/L. The reference range was not used to interpret this result as normal/abnormal . BE (test code = See_Comment [Automated 8842411262) message] The sy stem which generated this result transmitted reference range : -3.0 - 3.0 mEq/ L. The reference r nicholas was not used to interpret this result as normal/abnormal . THB (test code = 13.7 g/dL 12.0-16.0 9604951582) %O2HB (test code = 86.3 % 94.0-99.0 L 5204018655) %COHB ART (test code = 0.1 % 0.0-1.5 6636697586) %METHB ART (test code = 0.1 % 0.4-1.5 L 2611478518) VOL%O2 ART (test code = 16.6 % 15.0-23.0 0980240682) NA (test code = 135 mmol/L 135-145 3755725171) K+ (test code = 4.6 mmol/L 3.5-5.0 9202537566) AC CA IONZ (test code = 4.70 mg/dL 4.50-5.30 4293461716) GLUCOSE (test code = 88 mg/dL 70-110 6738536026) LACTIC ACID (test code 1.41 mmol/L 0.50-2.20 QUES = 9384966010) Lab Interpretation Abnormal (test code = 52548-7) [facility] LACTIC [id number] 10:59:55 Test Item Value Reference Range Interpretation Comments PH (test code = 2) 7.35-7.45 PCO2 (test code = See_Comment [Automat ed 0720332575) message] The sy stem which generated this result transmitted reference range : 35 - 45 mmHg. The reference range was not used to interpret this result as normal/abnormal . PO2 (test code = See_Comment L [Automated 2548888996) message] The sy stem which generated this result transmitted reference range : 80 - 100 mmHg. The reference range was not used to interpret this result as normal/abnormal . HCO3 (test code = See_Comment H [Automate d 4670906377) message] The sy stem which generated this result transmitted reference range : 22 - 26 mEq/L. The reference range was not used to interpret this result as normal/abnormal . BE (test code = See_Comment [Automated 5639836181) message] The sy stem which generated this result transmitted reference range : -3.0 - 3.0 mEq/ L. The reference r nicholas was not used to interpret this result as normal/abnormal . THB (test code = 13.7 g/dL 12.0-16.0 0971448827) %O2HB (test code = 86.3 % 94.0-99.0 L 6954025621) %COHB ART (test code = 0.1 % 0.0-1.5 7069435520) %METHB ART (test code = 0.1 % 0.4-1.5 L 0207411790) VOL%O2 ART (test code = 16.6 % 15.0-23.0 6642054440) NA (test code = 135 mmol/L 135-145 3698044813) K+ (test code = 4.6 mmol/L 3.5-5.0 0083233106) AC CA IONZ (test code = 4.70 mg/dL 4.50-5.30 4897414850) GLUCOSE (test code = 88 mg/dL 70-110 0321260037) LACTIC ACID (test code 1.41 mmol/L 0.50-2.20 QUES = 9608991827) Lab Interpretation Abnormal (test code = 57775-7) [facility] WITH [id number] 10:54:01 Test Item Value Reference Range Interpretation Comments WBC (test code = See_Comment H [Automated 8770-2) message] The system which generated this result transmit britney reference range : 4.30 - 11.10 10*3/?L. The reference range was not used to interpret this result as normal/abnormal . RBC (test code = See_Comment [Automated 766-8) message] The system which generated this result transmit britney reference range : 3.93 - 5.25 10*6/?L. The reference range was not used to interpret this result as normal/abnormal . HGB (test code = 11.4 g/dL 11.6-15.0 L 718-7) HCT (test code = 35.3 % 35.7-45.2 L 4544-3) MCV (test code = 88.5 fL 80.6-95.5 787-2) MCH (test code = 28.6 pg 25.9-32.8 785-6) MCHC (test code = 32.3 g/dL 31.6-35.1 786-4) RDW-SD (test code = 47.0 fL 39.0-49.9 40353-0) RDW-CV (test code = 14.6 % 12.0-15.5 788-0) PLT (test code = See_Comment [Automated 777-3) message] The system which generated this result transmit britney reference range : 166 - 358 10*3/ ?L. The reference range was not u sed to interpret th is result as normal/abnormal . MPV (test code = 10.5 fL 9.5-12.9 43979-8) NRBC/100 WBC (test See_Comment [Automat ed code = 7609622925) message] The system which generated this result transmit britney reference range : 0.0 - 10.0 /100 WBCs. The reference range was not used to interpret this result as normal/abnormal . NRBC x10^3 (test code See_Comment [Auto mated = 1165634415) message] The system which generated this result transmit britney reference range : 10*3/?L. The reference range was not used to interpret this result as normal/abnormal . GRAN MAT (NEUT) % 85.6 % (test code = 770-8) IMM GRAN % (test code 1.10 % = 1511198280) LYMPH % (test code = 9.7 % 736-9) MONO % (test code = 3.0 % 5905-5) EOS % (test code = 0.5 % 713-8) BASO % (test code = 0.1 % 706-2) GRAN MAT x10^3(ANC) 12.97 10*3/uL 1.88-7.09 H (test code = 5116425741) IMM GRAN x10^3 (test 0.16 10*3/uL 0.00-0.06 H code = 4038920660) LYMPH x10^3 (test code 1.47 10*3/uL 1.32-3.29 = 731-0) MONO x10^3 (test code 0.45 10*3/uL 0.33-0.92 = 742-7) EOS x10^3 (test code = 0.08 10*3/uL 0.03-0.39 711-2) BASO x10^3 (test code <0.03 0.01-0.07 = 704-7) Lab Interpretation Abnormal (test code = 45262-3) [facility] WITH [id number] 10:54:01 Test Item Value Reference Range Interpretation Comments WBC (test code = See_Comment H [Automated 1090-2) message] The system which generated this result transmit britney reference range : 4.30 - 11.10 10*3/?L. The reference range was not used to interpret this result as normal/abnormal . RBC (test code = See_Comment [Automated 789-8) message] The system which generated this result transmit britney reference range : 3.93 - 5.25 10*6/?L. The reference range was not used to interpret this result as normal/abnormal . HGB (test code = 11.4 g/dL 11.6-15.0 L 718-7) HCT (test code = 35.3 % 35.7-45.2 L 4544-3) MCV (test code = 88.5 fL 80.6-95.5 787-2) MCH (test code = 28.6 pg 25.9-32.8 785-6) MCHC (test code = 32.3 g/dL 31.6-35.1 786-4) RDW-SD (test code = 47.0 fL 39.0-49.9 60413-4) RDW-CV (test code = 14.6 % 12.0-15.5 788-0) PLT (test code = See_Comment [Automated 777-3) message] The system which generated this result transmit britney reference range : 166 - 358 10*3/ ?L. The reference range was not u sed to interpret th is result as normal/abnormal . MPV (test code = 10.5 fL 9.5-12.9 66349-8) NRBC/100 WBC (test See_Comment [Automat ed code = 5845533120) message] The system which generated this result transmit britney reference range : 0.0 - 10.0 /100 WBCs. The reference range was not used to interpret this result as normal/abnormal . NRBC x10^3 (test code See_Comment [Auto mated = 3539035915) message] The system which generated this result transmit britney reference range : 10*3/?L. The reference range was not used to interpret this result as normal/abnormal . GRAN MAT (NEUT) % 85.6 % (test code = 770-8) IMM GRAN % (test code 1.10 % = 9226940601) LYMPH % (test code = 9.7 % 736-9) MONO % (test code = 3.0 % 5905-5) EOS % (test code = 0.5 % 713-8) BASO % (test code = 0.1 % 706-2) GRAN MAT x10^3(ANC) 12.97 10*3/uL 1.88-7.09 H (test code = 7659884364) IMM GRAN x10^3 (test 0.16 10*3/uL 0.00-0.06 H code = 2096387504) LYMPH x10^3 (test code 1.47 10*3/uL 1.32-3.29 = 731-0) MONO x10^3 (test code 0.45 10*3/uL 0.33-0.92 = 742-7) EOS x10^3 (test code = 0.08 10*3/uL 0.03-0.39 711-2) BASO x10^3 (test code <0.03 0.01-0.07 = 704-7) Lab Interpretation Abnormal (test code = 20875-7) [facility]-REACTIVE [id number] 23:24:07 Test Item Value Reference Range Interpretation Comments CRP (test code = 5124871923) 22.1 mg/dL <1.0 H Lab Interpretation (test code = Abnormal 01112-4) [facility]-REACTIVE [id number] 23:24:07 Test Item Value Reference Range Interpretation Comments CRP (test code = 4208739990) 22.1 mg/dL <1.0 H Lab Interpretation (test code = Abnormal 92748-7) [facility] [id number] 23:21:42 Test Item Value Reference Interpretation Comments Range TROPONIN I (test 0.003 ng/mL See_Comment [Automated code = 3769114100) message] The system which generated this result transmitted reference range : <=0.034. The reference range was not used to interpret this result as normal/abnormal . LUCILLE (test code = Reference (Normal) LUCILLE) Range (defined by the 99th percentile reference limit): <= 0.034 ng/mL Note: Cardiac troponin begins to rise 3-4 hours after the onset of ischemia. Repeat in 4-6 hours if the sample was drawn within 3-4 hours of the onset of the symptom and found normal. Diagnosis of myocardial injury is made with acute changes in cTn concentrations with at least one serial sample above the 99th percentile upper reference limit (URL), taken together with the patient's clinical presentation. Biotin has been reported to cause a negative bias, interpret results relative to patient's use of biotin. Lab Interpretation Normal (test code = 19150-5) [facility] [id number] 23:21:42 Test Item Value Reference Interpretation Comments Range TROPONIN I (test 0.003 ng/mL See_Comment [Automated code = 9633616034) message] The system which generated this result transmitted reference range : <=0.034. The reference range was not used to interpret this result as normal/abnormal . LUCILLE (test code = Reference (Normal) LUCILLE) Range (defined by the 99th percentile reference limit): <= 0.034 ng/mL Note: Cardiac troponin begins to rise 3-4 hours after the onset of ischemia. Repeat in 4-6 hours if the sample was drawn within 3-4 hours of the onset of the symptom and found normal. Diagnosis of myocardial injury is made with acute changes in cTn concentrations with at least one serial sample above the 99th percentile upper reference limit (URL), taken together with the patient's clinical presentation. Biotin has been reported to cause a negative bias, interpret results relative to patient's use of biotin. Lab Interpretation Normal (test code = 60906-6) [facility] METABOLIC PANEL (NA, K, CL, CO2, GLUCOSE, BUN, CREATININE, CA)2021-10-15 23:12:40 Test Item Value Reference Range Interpretation Comments NA (test code = 136 mmol/L 135-145 8606121767) K (test code = 4.8 mmol/L 3.5-5.0 3286437673) CL (test code = 104 mmol/L 98-108 6633868475) CO2 TOTAL (test code = 26 mmol/L 23-31 1806250741) AGAP (test code = 2-16 1267343698) BUN (test code = 22 mg/dL 7-23 2557341208) GLUCOSE (test code = 114 mg/dL 70-110 H 5689879740) CREATININE (test code = 0.77 mg/dL 0.50-1.04 8313849808) CALCIUM (test code = 8.2 mg/dL 8.6-10.6 L 4208691369) eGFR (test code = mL/min/1.73m2 0815095962) LUCILLE (test code = LUCILLE) Association of Glomerular Filtration Rate (GFR) and Staging of Kidney Disease* + --+ --+ ------+| GFR (mL/min/1.73 m2) ?| With Kidney Damage ?| ?Without Kidney Damage+ --------+ --------+ +| ?>90 ?| ?Stage one ?| ? Normal ?+ ---+ ---+ -------+| ?60-89 ?| ?Stage two ?| ? Decreased GFR ? + --+ --+ ------+| ?30-59 ?| ?Stage three ?| ? Stage three ? + --+ --+ ------+| ?15-29 ?| ?Stage four ? | ? Stage four ?+ ---+ ---+ -------+| ?<15 (or dialysis) ? ?| ?Stage five ? | ? Stage five ?+ ---+ ---+ -------+ *Each stage assumes the associated GFR level has been in effect for at least three months. ?Stages 1 to 5, with or without kidney disease, indicate chronic kidney disease. Notes: Determination of stages one and two (with eGFR >59mL/min/1.73 m2) requires estimation of kidney damage for at least three months as defined by structural or functional abnormalities of the kidney, manifested by either:Pathological abnormalities or Markers of kidney damage (including abnormalities in the composition of the blood or urine or abnormalities in imaging tests). Lab Interpretation Abnormal (test code = 84601-8) [facility] METABOLIC PANEL (NA, K, CL, CO2, GLUCOSE, BUN, CREATININE, CA)2021-10-15 23:12:40 Test Item Value Reference Range Interpretation Comments NA (test code = 136 mmol/L 135-145 8352029251) K (test code = 4.8 mmol/L 3.5-5.0 7310490091) CL (test code = 104 mmol/L 98-108 9043677936) CO2 TOTAL (test code = 26 mmol/L 23-31 5472475759) AGAP (test code = 2-16 2563690549) BUN (test code = 22 mg/dL 7-23 7366821655) GLUCOSE (test code = 114 mg/dL 70-110 H 7195680121) CREATININE (test code = 0.77 mg/dL 0.50-1.04 0250051454) CALCIUM (test code = 8.2 mg/dL 8.6-10.6 L 9097323435) eGFR (test code = mL/min/1.73m2 2750988485) LUCILLE (test code = LUCILLE) Association of Glomerular Filtration Rate (GFR) and Staging of Kidney Disease* + --+ --+ ------+| GFR (mL/min/1.73 m2) ?| With Kidney Damage ?| ?Without Kidney Damage+ --------+ --------+ +| ?>90 ?| ?Stage one ?| ? Normal ?+ ---+ ---+ -------+| ?60-89 ?| ?Stage two ?| ? Decreased GFR ? + --+ --+ ------+| ?30-59 ?| ?Stage three ?| ? Stage three ? + --+ --+ ------+| ?15-29 ?| ?Stage four ? | ? Stage four ?+ ---+ ---+ -------+| ?<15 (or dialysis) ? ?| ?Stage five ? | ? Stage five ?+ ---+ ---+ -------+ *Each stage assumes the associated GFR level has been in effect for at least three months. ?Stages 1 to 5, with or without kidney disease, indicate chronic kidney disease. Notes: Determination of stages one and two (with eGFR >59mL/min/1.73 m2) requires estimation of kidney damage for at least three months as defined by structural or functional abnormalities of the kidney, manifested by either:Pathological abnormalities or Markers of kidney damage (including abnormalities in the composition of the blood or urine or abnormalities in imaging tests). Lab Interpretation Abnormal (test code = 36263-7) [facility] [id number] 21:55:57 Test Item Value Reference Interpretation Comments Range TROPONIN I (test 0.003 ng/mL See_Comment [Automated code = 1912752578) message] The system which generated this result transmitted reference range : <=0.034. The reference range was not used to interpret this result as normal/abnormal . LUCILLE (test code = Reference (Normal) LUCILLE) Range (defined by the 99th percentile reference limit): <= 0.034 ng/mL Note: Cardiac troponin begins to rise 3-4 hours after the onset of ischemia. Repeat in 4-6 hours if the sample was drawn within 3-4 hours of the onset of the symptom and found normal. Diagnosis of myocardial injury is made with acute changes in cTn concentrations with at least one serial sample above the 99th percentile upper reference limit (URL), taken together with the patient's clinical presentation. Biotin has been reported to cause a negative bias, interpret results relative to patient's use of biotin. Lab Interpretation Normal (test code = 88278-0) [facility] [id number] 21:55:57 Test Item Value Reference Interpretation Comments Range TROPONIN I (test 0.003 ng/mL See_Comment [Automated code = 1325560570) message] The system which generated this result transmitted reference range : <=0.034. The reference range was not used to interpret this result as normal/abnormal . LUCILLE (test code = Reference (Normal) LUCILLE) Range (defined by the 99th percentile reference limit): <= 0.034 ng/mL Note: Cardiac troponin begins to rise 3-4 hours after the onset of ischemia. Repeat in 4-6 hours if the sample was drawn within 3-4 hours of the onset of the symptom and found normal. Diagnosis of myocardial injury is made with acute changes in cTn concentrations with at least one serial sample above the 99th percentile upper reference limit (URL), taken together with the patient's clinical presentation. Biotin has been reported to cause a negative bias, interpret results relative to patient's use of biotin. Lab Interpretation Normal (test code = 15690-0) [facility] 19:07:46 Test Item Value Reference Range Interpretation Comments Procalcitonin (test 0.15 ng/mL <0.08 H code = 6135808720) LUCILLE (test code = LUCILLE) INTERPRETATION OF PROCALCITONIN RESULTS IN ADULTS >= 18 YEARS OF AGE Initiation and discontinuation of antibiotics on patients with suspected or confirmed Lower Respiratory Tract Infection in Adults >= 18 years of age. + +-------- --------+ + -----+|Procalcitonin |Interpretation ?|Antibiotic ? ? |Considerations ? |ng/mL ? | ?|recommendation | ? + +-------- --------+ + -----+| <0.1 ? | Bacterial ? ? ?| Strongly ? ? ?| ? | ?| infection very | discouraged ? | Overruling: ? | ?| unlikely ? ? ? | ? | ? Clinically unstable ? ? ? + +-------- --------+ + ? High risk for adverse ? ? | <0.25 ?| Bacterial ? ? ?| Discouraged ? | ? outcome ? | ?| infection ? ? ?| ? | ? SEE IMPORTANT NOTE ?| ?| unlikely ? ? ? | ? | ? + +-------- --------+ + -----+| >=0.25 ? ? ? | Bacterial ? ? ?| Encouraged ? ?| ? | ?| infection ? ? ?| ? | ? | ?| likely ? | ? | Consider treatment failure ?+ +------- ---------+ -+ if levels does not decrease | >0.5 ? | Bacterial ? ? ?| Strongly ? ? ?| appropriately ? | ?| infection very | encouraged ? ?| ? | ?| likely ? | ? | ? + +-------- --------+ + -----+ Discontinuation of antibiotics in high-acuity patients with suspected or confirmed sepsis in Adults >= 18 years of age. + +-------- --------+ + -----+|Procalcitonin |Interpretation ?|Antibiotic ? ? |Considerations ? |ng/mL ? | ?|recommendation | ? + +-------- --------+ + -----+| <0.25 ?| Bacterial ? ? ?| Strongly ? ? ?| ? | ?| infection very | discouraged ? | Overruling: ? | ?| unlikely ? ? ? | ? | ? Clinically unstable ? ? ? + +-------- --------+ + ? High risk for adverse ? ? | <0.5 or drop | Bacterial ? ? ?| Discouraged ? | ? outcome ? | >80% from ? ?| infection ? ? ?| ? | ? SEE IMPORTANT NOTE ?| highest PCT ?| unlikely ? ? ? | ? | ? | level ?| ?| ? | ? + +-------- --------+ + -----+| >=0.5 ?| Bacterial ? ? ?| Encouraged ? ?| ? | ?| infection ? ? ?| ? | ? | ?| likely ? | ? | Consider treatment failure ?+ +------- ---------+ -+ if levels does not decrease | >1.0 ? | Bacterial ? ? ?| Strongly ? ? ?| appropriately ? | ?| infection very | encouraged ? ?| ? | ?| likely ? | ? | ? + +-------- --------+ + -----+ Percentage of drop of Procalcitonin calculation for Discontinuation of antibiotics in high-acuity patients with suspected or confirmed sepsis in Adults >= 18 years of age. ? Procalcitonin highest{}-Procalcitonin current{}Delta Procalcitonin = x100% ? Procalcitonin current {} IMPORTANT NOTE: Procalcitonin may be elevated without bacterial infection by physiologic stress related to trauma, nicholas, chronic dialysis, metastatic cancer, surgery in the past seven days, malaria, some fungal infections, and some forms of vasculitis. The interpretation algorithm may not apply to patients with immunosuppression (equivalent of >10 mg of prednisone daily), HIV with CD4 cell count < 350 cells/mm3, active malignancy on systemic chemotherapy, solid organ transplant or hematopoietic stem cell transplantation, or hospital acquired pneumonia. Additionally, some clinical trials of procalcitonin have excluded patients with shock requiring vasopressor use, acute respiratory failure requiring mechanical ventilation, or those with known lung abscess/empyema. For further information please refer to:[email or web address] Lab Interpretation Abnormal (test code = 71439-7) [facility]22-[facility] 19:07:46 Test Item Value Reference Range Interpretation Comments Procalcitonin (test 0.15 ng/mL <0.08 H code = 8002043944) LUCILLE (test code = LUCILLE) INTERPRETATION OF PROCALCITONIN RESULTS IN ADULTS >= 18 YEARS OF AGE Initiation and discontinuation of antibiotics on patients with suspected or confirmed Lower Respiratory Tract Infection in Adults >= 18 years of age. + +-------- --------+ + -----+|Procalcitonin |Interpretation ?|Antibiotic ? ? |Considerations ? |ng/mL ? | ?|recommendation | ? + +-------- --------+ + -----+| <0.1 ? | Bacterial ? ? ?| Strongly ? ? ?| ? | ?| infection very | discouraged ? | Overruling: ? | ?| unlikely ? ? ? | ? | ? Clinically unstable ? ? ? + +-------- --------+ + ? High risk for adverse ? ? | <0.25 ?| Bacterial ? ? ?| Discouraged ? | ? outcome ? | ?| infection ? ? ?| ? | ? SEE IMPORTANT NOTE ?| ?| unlikely ? ? ? | ? | ? + +-------- --------+ + -----+| >=0.25 ? ? ? | Bacterial ? ? ?| Encouraged ? ?| ? | ?| infection ? ? ?| ? | ? | ?| likely ? | ? | Consider treatment failure ?+ +------- ---------+ -+ if levels does not decrease | >0.5 ? | Bacterial ? ? ?| Strongly ? ? ?| appropriately ? | ?| infection very | encouraged ? ?| ? | ?| likely ? | ? | ? + +-------- --------+ + -----+ Discontinuation of antibiotics in high-acuity patients with suspected or confirmed sepsis in Adults >= 18 years of age. + +-------- --------+ + -----+|Procalcitonin |Interpretation ?|Antibiotic ? ? |Considerations ? |ng/mL ? | ?|recommendation | ? + +-------- --------+ + -----+| <0.25 ?| Bacterial ? ? ?| Strongly ? ? ?| ? | ?| infection very | discouraged ? | Overruling: ? | ?| unlikely ? ? ? | ? | ? Clinically unstable ? ? ? + +-------- --------+ + ? High risk for adverse ? ? | <0.5 or drop | Bacterial ? ? ?| Discouraged ? | ? outcome ? | >80% from ? ?| infection ? ? ?| ? | ? SEE IMPORTANT NOTE ?| highest PCT ?| unlikely ? ? ? | ? | ? | level ?| ?| ? | ? + +-------- --------+ + -----+| >=0.5 ?| Bacterial ? ? ?| Encouraged ? ?| ? | ?| infection ? ? ?| ? | ? | ?| likely ? | ? | Consider treatment failure ?+ +------- ---------+ -+ if levels does not decrease | >1.0 ? | Bacterial ? ? ?| Strongly ? ? ?| appropriately ? | ?| infection very | encouraged ? ?| ? | ?| likely ? | ? | ? + +-------- --------+ + -----+ Percentage of drop of Procalcitonin calculation for Discontinuation of antibiotics in high-acuity patients with suspected or confirmed sepsis in Adults >= 18 years of age. ? Procalcitonin highest{}-Procalcitonin current{}Delta Procalcitonin = x100% ? Procalcitonin current {} IMPORTANT NOTE: Procalcitonin may be elevated without bacterial infection by physiologic stress related to trauma, nicholas, chronic dialysis, metastatic cancer, surgery in the past seven days, malaria, some fungal infections, and some forms of vasculitis. The interpretation algorithm may not apply to patients with immunosuppression (equivalent of >10 mg of prednisone daily), HIV with CD4 cell count < 350 cells/mm3, active malignancy on systemic chemotherapy, solid organ transplant or hematopoietic stem cell transplantation, or hospital acquired pneumonia. Additionally, some clinical trials of procalcitonin have excluded patients with shock requiring vasopressor use, acute respiratory failure requiring mechanical ventilation, or those with known lung abscess/empyema. For further information please refer to:[email or web address] Lab Interpretation Abnormal (test code = 28535-7) [facility] [id number] 18:31:24 Test Item Value Reference Range Interpretation Comments NT-proBNP (test code 43 pg/mL See_Comment [Autom ated = [id number]) message] The system which generated this result transmitted reference range : <=125. The reference range was not used to interpret this result as normal/abnormal . LUCILLE (test code = LUCILLE) Biotin has been reported to cause a negative bias, interpret results relative to patient's use of biotin. Lab Interpretation Normal (test code = 95370-6) [facility] [id number] 18:31:24 Test Item Value Reference Range Interpretation Comments NT-proBNP (test code 43 pg/mL See_Comment [Autom ated = 8305460485) message] The system which generated this result transmitted reference range : <=125. The reference range was not used to interpret this result as normal/abnormal . LUCILLE (test code = LUCILLE) Biotin has been reported to cause a negative bias, interpret results relative to patient's use of biotin. Lab Interpretation Normal (test code = 76313-3) [facility]2022-02-12 09:17:58 Test Item Value Reference Range Interpretation Comments Procalcitonin (test 0.15 ng/mL <0.08 H code = 8405495307) LUCILLE (test code = LUCILLE) INTERPRETATION OF PROCALCITONIN RESULTS IN ADULTS >= 18 YEARS OF AGE Initiation and discontinuation of antibiotics on patients with suspected or confirmed Lower Respiratory Tract Infection in Adults >= 18 years of age. + +-------- --------+ + -----+|Procalcitonin |Interpretation ?|Antibiotic ? ? |Considerations ? |ng/mL ? | ?|recommendation | ? + +-------- --------+ + -----+| <0.1 ? | Bacterial ? ? ?| Strongly ? ? ?| ? | ?| infection very | discouraged ? | Overruling: ? | ?| unlikely ? ? ? | ? | ? Clinically unstable ? ? ? + +-------- --------+ + ? High risk for adverse ? ? | <0.25 ?| Bacterial ? ? ?| Discouraged ? | ? outcome ? | ?| infection ? ? ?| ? | ? SEE IMPORTANT NOTE ?| ?| unlikely ? ? ? | ? | ? + +-------- --------+ + -----+| >=0.25 ? ? ? | Bacterial ? ? ?| Encouraged ? ?| ? | ?| infection ? ? ?| ? | ? | ?| likely ? | ? | Consider treatment failure ?+ +------- ---------+ -+ if levels does not decrease | >0.5 ? | Bacterial ? ? ?| Strongly ? ? ?| appropriately ? | ?| infection very | encouraged ? ?| ? | ?| likely ? | ? | ? + +-------- --------+ + -----+ Discontinuation of antibiotics in high-acuity patients with suspected or confirmed sepsis in Adults >= 18 years of age. + +-------- --------+ + -----+|Procalcitonin |Interpretation ?|Antibiotic ? ? |Considerations ? |ng/mL ? | ?|recommendation | ? + +-------- --------+ + -----+| <0.25 ?| Bacterial ? ? ?| Strongly ? ? ?| ? | ?| infection very | discouraged ? | Overruling: ? | ?| unlikely ? ? ? | ? | ? Clinically unstable ? ? ? + +-------- --------+ + ? High risk for adverse ? ? | <0.5 or drop | Bacterial ? ? ?| Discouraged ? | ? outcome ? | >80% from ? ?| infection ? ? ?| ? | ? SEE IMPORTANT NOTE ?| highest PCT ?| unlikely ? ? ? | ? | ? | level ?| ?| ? | ? + +-------- --------+ + -----+| >=0.5 ?| Bacterial ? ? ?| Encouraged ? ?| ? | ?| infection ? ? ?| ? | ? | ?| likely ? | ? | Consider treatment failure ?+ +------- ---------+ -+ if levels does not decrease | >1.0 ? | Bacterial ? ? ?| Strongly ? ? ?| appropriately ? | ?| infection very | encouraged ? ?| ? | ?| likely ? | ? | ? + +-------- --------+ + -----+ Percentage of drop of Procalcitonin calculation for Discontinuation of antibiotics in high-acuity patients with suspected or confirmed sepsis in Adults >= 18 years of age. ? Procalcitonin highest{}-Procalcitonin current{}Delta Procalcitonin = x100% ? Procalcitonin current {} IMPORTANT NOTE: Procalcitonin may be elevated without bacterial infection by physiologic stress related to trauma, nicholas, chronic dialysis, metastatic cancer, surgery in the past seven days, malaria, some fungal infections, and some forms of vasculitis. The interpretation algorithm may not apply to patients with immunosuppression (equivalent of >10 mg of prednisone daily), HIV with CD4 cell count < 350 cells/mm3, active malignancy on systemic chemotherapy, solid organ transplant or hematopoietic stem cell transplantation, or hospital acquired pneumonia. Additionally, some clinical trials of procalcitonin have excluded patients with shock requiring vasopressor use, acute respiratory failure requiring mechanical ventilation, or those with known lung abscess/empyema. For further information please refer to:[email or web address] Lab Interpretation Abnormal (test code = 78354-2) [facility] 09:17:58 Test Item Value Reference Range Interpretation Comments Procalcitonin (test 0.15 ng/mL <0.08 H code = 3196436602) LUCILLE (test code = LUCILLE) INTERPRETATION OF PROCALCITONIN RESULTS IN ADULTS >= 18 YEARS OF AGE Initiation and discontinuation of antibiotics on patients with suspected or confirmed Lower Respiratory Tract Infection in Adults >= 18 years of age. + +-------- --------+ + -----+|Procalcitonin |Interpretation ?|Antibiotic ? ? |Considerations ? |ng/mL ? | ?|recommendation | ? + +-------- --------+ + -----+| <0.1 ? | Bacterial ? ? ?| Strongly ? ? ?| ? | ?| infection very | discouraged ? | Overruling: ? | ?| unlikely ? ? ? | ? | ? Clinically unstable ? ? ? + +-------- --------+ + ? High risk for adverse ? ? | <0.25 ?| Bacterial ? ? ?| Discouraged ? | ? outcome ? | ?| infection ? ? ?| ? | ? SEE IMPORTANT NOTE ?| ?| unlikely ? ? ? | ? | ? + +-------- --------+ + -----+| >=0.25 ? ? ? | Bacterial ? ? ?| Encouraged ? ?| ? | ?| infection ? ? ?| ? | ? | ?| likely ? | ? | Consider treatment failure ?+ +------- ---------+ -+ if levels does not decrease | >0.5 ? | Bacterial ? ? ?| Strongly ? ? ?| appropriately ? | ?| infection very | encouraged ? ?| ? | ?| likely ? | ? | ? + +-------- --------+ + -----+ Discontinuation of antibiotics in high-acuity patients with suspected or confirmed sepsis in Adults >= 18 years of age. + +-------- --------+ + -----+|Procalcitonin |Interpretation ?|Antibiotic ? ? |Considerations ? |ng/mL ? | ?|recommendation | ? + +-------- --------+ + -----+| <0.25 ?| Bacterial ? ? ?| Strongly ? ? ?| ? | ?| infection very | discouraged ? | Overruling: ? | ?| unlikely ? ? ? | ? | ? Clinically unstable ? ? ? + +-------- --------+ + ? High risk for adverse ? ? | <0.5 or drop | Bacterial ? ? ?| Discouraged ? | ? outcome ? | >80% from ? ?| infection ? ? ?| ? | ? SEE IMPORTANT NOTE ?| highest PCT ?| unlikely ? ? ? | ? | ? | level ?| ?| ? | ? + +-------- --------+ + -----+| >=0.5 ?| Bacterial ? ? ?| Encouraged ? ?| ? | ?| infection ? ? ?| ? | ? | ?| likely ? | ? | Consider treatment failure ?+ +------- ---------+ -+ if levels does not decrease | >1.0 ? | Bacterial ? ? ?| Strongly ? ? ?| appropriately ? | ?| infection very | encouraged ? ?| ? | ?| likely ? | ? | ? + +-------- --------+ + -----+ Percentage of drop of Procalcitonin calculation for Discontinuation of antibiotics in high-acuity patients with suspected or confirmed sepsis in Adults >= 18 years of age. ? Procalcitonin highest{}-Procalcitonin current{}Delta Procalcitonin = x100% ? Procalcitonin current {} IMPORTANT NOTE: Procalcitonin may be elevated without bacterial infection by physiologic stress related to trauma, nicholas, chronic dialysis, metastatic cancer, surgery in the past seven days, malaria, some fungal infections, and some forms of vasculitis. The interpretation algorithm may not apply to patients with immunosuppression (equivalent of >10 mg of prednisone daily), HIV with CD4 cell count < 350 cells/mm3, active malignancy on systemic chemotherapy, solid organ transplant or hematopoietic stem cell transplantation, or hospital acquired pneumonia. Additionally, some clinical trials of procalcitonin have excluded patients with shock requiring vasopressor use, acute respiratory failure requiring mechanical ventilation, or those with known lung abscess/empyema. For further information please refer to:[email or web address] Lab Interpretation Abnormal (test code = 65483-7) [facility] (NA, K, CL, CO2, GLUCOSE, BUN, CREATININE, CA)2021-10-15 08:36:11 Test Item Value Reference Range Interpretation Comments NA (test code = 139 mmol/L 135-145 1436682361) K (test code = 5.5 mmol/L 3.5-5.0 H Slight 9938070198) hemolysis CL (test code = 104 mmol/L 98-108 6777507374) CO2 TOTAL (test code 29 mmol/L 23-31 = 9689661367) AGAP (test code = 2-16 1909647283) BUN (test code = 17 mg/dL 7-23 Slight 7259808386) hemolysis GLUCOSE (test code = 131 mg/dL 70-110 H 9679693099) CREATININE (test code 0.77 mg/dL 0.50-1.04 = 3205070668) CALCIUM (test code = 8.5 mg/dL 8.6-10.6 L 2344720399) eGFR (test code = mL/min/1.73m2 0614224984) LUCILLE (test code = LUCILLE) Association of Glomerular Filtration Rate (GFR) and Staging of Kidney Disease* + -----+ --------+ +| GFR (mL/min/1.73 m2) ?| With Kidney Damage ?| ?Without Kidney Damage+ +------- +---- --+| ?>90 ?| ?Stage one ?| ? Normal ?+ ------+ ---------+--------- +| ?60-89 ?| ?Stage two ?| ? Decreased GFR ? + -----+ --------+ +| ?30-59 ?| ?Stage three ?| ? Stage three ? + -----+ --------+ +| ?15-29 ?| ?Stage four ? | ? Stage four ?+ ------+ ---------+--------- +| ?<15 (or dialysis) ? ?| ?Stage five ? | ? Stage five ?+ ------+ ---------+--------- + *Each stage assumes the associated GFR level has been in effect for at least three months. ?Stages 1 to 5, with or without kidney disease, indicate chronic kidney disease. Notes: Determination of stages one and two (with eGFR >59mL/min/1.73 m2) requires estimation of kidney damage for at least three months as defined by structural or functional abnormalities of the kidney, manifested by either:Pathological abnormalities or Markers of kidney damage (including abnormalities in the composition of the blood or urine or abnormalities in imaging tests). Lab Interpretation Abnormal (test code = 28228-8) [facility] [id number] 08:36:11 Test Item Value Reference Range Interpretation Comments MAGNESIUM (test code = 8280446645) 2.4 mg/dL 1.7-2.4 Lab Interpretation (test code = Normal 59664-2) [facility] (NA, K, CL, CO2, GLUCOSE, BUN, CREATININE, CA)2021-10-15 08:36:11 Test Item Value Reference Range Interpretation Comments NA (test code = 139 mmol/L 135-145 0253220842) K (test code = 5.5 mmol/L 3.5-5.0 H Slight 6611897261) hemolysis CL (test code = 104 mmol/L 98-108 4693511391) CO2 TOTAL (test code 29 mmol/L 23-31 = 2571468538) AGAP (test code = 2-16 5774098096) BUN (test code = 17 mg/dL 7-23 Slight 9556644837) hemolysis GLUCOSE (test code = 131 mg/dL 70-110 H 4445162254) CREATININE (test code 0.77 mg/dL 0.50-1.04 = 1370406585) CALCIUM (test code = 8.5 mg/dL 8.6-10.6 L 6154918254) eGFR (test code = mL/min/1.73m2 5695912103) LUCILLE (test code = LUCILLE) Association of Glomerular Filtration Rate (GFR) and Staging of Kidney Disease* + -----+ --------+ +| GFR (mL/min/1.73 m2) ?| With Kidney Damage ?| ?Without Kidney Damage+ +------- +---- --+| ?>90 ?| ?Stage one ?| ? Normal ?+ ------+ ---------+--------- +| ?60-89 ?| ?Stage two ?| ? Decreased GFR ? + -----+ --------+ +| ?30-59 ?| ?Stage three ?| ? Stage three ? + -----+ --------+ +| ?15-29 ?| ?Stage four ? | ? Stage four ?+ ------+ ---------+--------- +| ?<15 (or dialysis) ? ?| ?Stage five ? | ? Stage five ?+ ------+ ---------+--------- + *Each stage assumes the associated GFR level has been in effect for at least three months. ?Stages 1 to 5, with or without kidney disease, indicate chronic kidney disease. Notes: Determination of stages one and two (with eGFR >59mL/min/1.73 m2) requires estimation of kidney damage for at least three months as defined by structural or functional abnormalities of the kidney, manifested by either:Pathological abnormalities or Markers of kidney damage (including abnormalities in the composition of the blood or urine or abnormalities in imaging tests). Lab Interpretation Abnormal (test code = 97383-2) [facility] [id number] 08:36:11 Test Item Value Reference Range Interpretation Comments MAGNESIUM (test code = 5965996062) 2.4 mg/dL 1.7-2.4 Lab Interpretation (test code = Normal 11509-8) [facility] [id number] 08:21:08 Test Item Value Reference Interpretation Comments Range TROPONIN I (test 0.005 ng/mL See_Comment [Automated code = 8442615588) message] The system which generated this result transmitted reference range : <=0.034. The reference range was not used to interpret this result as normal/abnormal . LUCILLE (test code = Reference (Normal) LUCILLE) Range (defined by the 99th percentile reference limit): <= 0.034 ng/mL Note: Cardiac troponin begins to rise 3-4 hours after the onset of ischemia. Repeat in 4-6 hours if the sample was drawn within 3-4 hours of the onset of the symptom and found normal. Diagnosis of myocardial injury is made with acute changes in cTn concentrations with at least one serial sample above the 99th percentile upper reference limit (URL), taken together with the patient's clinical presentation. Biotin has been reported to cause a negative bias, interpret results relative to patient's use of biotin. Lab Interpretation Normal (test code = 21495-3) [facility] [id number] 08:21:08 Test Item Value Reference Interpretation Comments Range TROPONIN I (test 0.005 ng/mL See_Comment [Automated code = 0647091147) message] The system which generated this result transmitted reference range : <=0.034. The reference range was not used to interpret this result as normal/abnormal . LUCILLE (test code = Reference (Normal) LUCILLE) Range (defined by the 99th percentile reference limit): <= 0.034 ng/mL Note: Cardiac troponin begins to rise 3-4 hours after the onset of ischemia. Repeat in 4-6 hours if the sample was drawn within 3-4 hours of the onset of the symptom and found normal. Diagnosis of myocardial injury is made with acute changes in cTn concentrations with at least one serial sample above the 99th percentile upper reference limit (URL), taken together with the patient's clinical presentation. Biotin has been reported to cause a negative bias, interpret results relative to patient's use of biotin. Lab Interpretation Normal (test code = 57537-0) [facility] WITH [id number] 07:37:26 Test Item Value Reference Range Interpretation Comments WBC (test code = See_Comment H [Automated 8661-2) message] The system which generated this result transmit britney reference range : 4.30 - 11.10 10*3/?L. The reference range was not used to interpret this result as normal/abnormal . RBC (test code = See_Comment [Automated 698-8) message] The system which generated this result transmit britney reference range : 3.93 - 5.25 10*6/?L. The reference range was not used to interpret this result as normal/abnormal . HGB (test code = 12.8 g/dL 11.6-15.0 718-7) HCT (test code = 38.8 % 35.7-45.2 4544-3) MCV (test code = 87.8 fL 80.6-95.5 787-2) MCH (test code = 29.0 pg 25.9-32.8 785-6) MCHC (test code = 33.0 g/dL 31.6-35.1 786-4) RDW-SD (test code = 47.4 fL 39.0-49.9 19695-4) RDW-CV (test code = 14.6 % 12.0-15.5 788-0) PLT (test code = See_Comment [Automated 777-3) message] The system which generated this result transmit britney reference range : 166 - 358 10*3/ ?L. The reference range was not u sed to interpret th is result as normal/abnormal . MPV (test code = 11.1 fL 9.5-12.9 39407-2) NRBC/100 WBC (test See_Comment [Automat ed code = 0778788722) message] The system which generated this result transmit britney reference range : 0.0 - 10.0 /100 WBCs. The reference range was not used to interpret this result as normal/abnormal . NRBC x10^3 (test code <0.01 See_Comment [Auto mated = 2665266288) message] The system which generated this result transmit britney reference range : 10*3/?L. The reference range was not used to interpret this result as normal/abnormal . GRAN MAT (NEUT) % 92.0 % (test code = 770-8) IMM GRAN % (test code 1.10 % = 9808207022) LYMPH % (test code = 5.0 % 736-9) MONO % (test code = 1.8 % 5905-5) EOS % (test code = 0.0 % 713-8) BASO % (test code = 0.1 % 706-2) GRAN MAT x10^3(ANC) 20.65 10*3/uL 1.88-7.09 H (test code = 0462379344) IMM GRAN x10^3 (test 0.25 10*3/uL 0.00-0.06 H code = 8284653710) LYMPH x10^3 (test code 1.13 10*3/uL 1.32-3.29 L = 731-0) MONO x10^3 (test code 0.40 10*3/uL 0.33-0.92 = 742-7) EOS x10^3 (test code = <0.03 0.03-0.39 L 711-2) BASO x10^3 (test code 0.03 10*3/uL 0.01-0.07 = 704-7) Lab Interpretation Abnormal (test code = 51706-8) [facility] WITH [id number] 07:37:26 Test Item Value Reference Range Interpretation Comments WBC (test code = See_Comment H [Automated 6690-2) message] The system which generated this result transmit britney reference range : 4.30 - 11.10 10*3/?L. The reference range was not used to interpret this result as normal/abnormal . RBC (test code = See_Comment [Automated 789-8) message] The system which generated this result transmit britney reference range : 3.93 - 5.25 10*6/?L. The reference range was not used to interpret this result as normal/abnormal . HGB (test code = 12.8 g/dL 11.6-15.0 718-7) HCT (test code = 38.8 % 35.7-45.2 4544-3) MCV (test code = 87.8 fL 80.6-95.5 787-2) MCH (test code = 29.0 pg 25.9-32.8 785-6) MCHC (test code = 33.0 g/dL 31.6-35.1 786-4) RDW-SD (test code = 47.4 fL 39.0-49.9 20024-1) RDW-CV (test code = 14.6 % 12.0-15.5 788-0) PLT (test code = See_Comment [Automated 777-3) message] The system which generated this result transmit britney reference range : 166 - 358 10*3/ ?L. The reference range was not u sed to interpret th is result as normal/abnormal . MPV (test code = 11.1 fL 9.5-12.9 66704-7) NRBC/100 WBC (test See_Comment [Automat ed code = 2241034682) message] The system which generated this result transmit britney reference range : 0.0 - 10.0 /100 WBCs. The reference range was not used to interpret this result as normal/abnormal . NRBC x10^3 (test code <0.01 See_Comment [Auto mated = 3872520978) message] The system which generated this result transmit britney reference range : 10*3/?L. The reference range was not used to interpret this result as normal/abnormal . GRAN MAT (NEUT) % 92.0 % (test code = 770-8) IMM GRAN % (test code 1.10 % = 8507934470) LYMPH % (test code = 5.0 % 736-9) MONO % (test code = 1.8 % 5905-5) EOS % (test code = 0.0 % 713-8) BASO % (test code = 0.1 % 706-2) GRAN MAT x10^3(ANC) 20.65 10*3/uL 1.88-7.09 H (test code = 8294159495) IMM GRAN x10^3 (test 0.25 10*3/uL 0.00-0.06 H code = 9579580970) LYMPH x10^3 (test code 1.13 10*3/uL 1.32-3.29 L = 731-0) MONO x10^3 (test code 0.40 10*3/uL 0.33-0.92 = 742-7) EOS x10^3 (test code = <0.03 0.03-0.39 L 711-2) BASO x10^3 (test code 0.03 10*3/uL 0.01-0.07 = 704-7) Lab Interpretation Abnormal (test code = 34822-4) [facility]+NA+K+GLU+CA2+2021-10-15 07:28:14 Test Item Value Reference Range Interpretation Comments PH (test code = 2) 7.35-7.45 PCO2 (test code = See_Comment [Automat ed message] 6696856701) The system [employer] generated this result transmit britney reference range : 35 - 45 mmHg. The reference range was not used to interpret this result as normal/abnormal . PO2 (test code = See_Comment H [Automated message] 6965475797) The system [employer] generated this result transmit britney reference range : 80 - 100 mmHg. The reference range was not used to interpret this result as normal/abnormal . HCO3 (test code = See_Comment [Automate d message] 5300730337) The system [employer] generated this result transmit britney reference range : 22 - 26 mEq/L. The reference range was not used to interpret this result as normal/abnormal . BE (test code = See_Comment [Automated message] 0532552951) The system [employer] generated this result transmit britney reference range : -3.0 - 3.0 mEq/ L. The reference r nicholas was not used to interpret this result as normal/abnormal . THB (test code = 13.1 g/dL 12.0-16.0 8630796704) %O2HB (test code = 98.7 % 94.0-99.0 1539286791) %COHB ART (test code = 0.4 % 0.0-1.5 1703412315) %METHB ART (test code = 0.0 % 0.4-1.5 L 4879046460) VOL%O2 ART (test code = 18.5 % 15.0-23.0 QUES 9739271528) NA (test code = 138 mmol/L 135-145 6492051542) K+ (test code = 5.0 mmol/L 3.5-5.0 1725570596) AC CA IONZ (test code = 4.50 mg/dL 4.50-5.30 5694210472) GLUCOSE (test code = 138 mg/dL 70-110 H 4315570231) Lab Interpretation Abnormal (test code = 77061-3) [facility]COOX+NA+K+GLU+CA2+2021-10-15 07:28:14 Test Item Value Reference Range Interpretation Comments PH (test code = 2) 7.35-7.45 PCO2 (test code = See_Comment [Automat ed message] 6252891622) The system [employer] generated this result transmit britney reference range : 35 - 45 mmHg. The reference range was not used to interpret this result as normal/abnormal . PO2 (test code = See_Comment H [Automated message] 5392951753) The system [employer] generated this result transmit britney reference range : 80 - 100 mmHg. The reference range was not used to interpret this result as normal/abnormal . HCO3 (test code = See_Comment [Automate d message] 7626488700) The system [employer] generated this result transmit britney reference range : 22 - 26 mEq/L. The reference range was not used to interpret this result as normal/abnormal . BE (test code = See_Comment [Automated message] 4648035034) The system [employer] generated this result transmit britney reference range : -3.0 - 3.0 mEq/ L. The reference r nicholas was not used to interpret this result as normal/abnormal . THB (test code = 13.1 g/dL 12.0-16.0 5074239727) %O2HB (test code = 98.7 % 94.0-99.0 1981691054) %COHB ART (test code = 0.4 % 0.0-1.5 1264965792) %METHB ART (test code = 0.0 % 0.4-1.5 L 0225929241) VOL%O2 ART (test code = 18.5 % 15.0-23.0 QUES 5161652908) NA (test code = 138 mmol/L 135-145 3248906387) K+ (test code = 5.0 mmol/L 3.5-5.0 5172426658) AC CA IONZ (test code = 4.50 mg/dL 4.50-5.30 7261940890) GLUCOSE (test code = 138 mg/dL 70-110 H 2386992718) Lab Interpretation Abnormal (test code = 39644-9) [facility]
[2021-11-04] MEDS ORDERED: NA CHLORIDE 0.9% 500 ML ONE (18:49)
[2021-11-04] MEDS ORDERED: CEFTRIAXONE 1000 MG/VIAL ONE (18:49)
[2021-11-04] MEDS ORDERED: NA CHLORIDE 0.9% 50 ML ONE (18:49)
[2021-11-04] MEDS ORDERED: ONDANSETRON 4 MG/2 ML VIAL ONE (19:11)
[2021-11-04] MEDS ORDERED: MORPHINE 4 MG/ML SYR ONE (19:11)
[2021-11-04 19:18] LABS: Absolute Lymphocytes (CBC) 1.2 K/uL (0.7-4.9); Hematocrit 30.9 % (36.0-45.0); Lymphocytes % 5.9 % (15.3-44.8); MPV 7.9 fL (7.6-11.3); RBC Red Blood Cell Count 3.56 M/uL (3.86-4.86)
[2021-11-04 19:20] LABS: Protime INR 0.97
[2021-11-04] MEDS ORDERED: AZITHROMYCIN 500 MG INJ IVPB ONE (20:03)
[2021-11-04] MEDS ORDERED: NA CHLORIDE 0.9% 250 ML ONE (20:04)
[2021-11-04] MEDS ORDERED: FAMOTIDINE 20 MG/2 ML VIAL IV ONE (20:04)
[2021-11-04 20:12] LABS: ALT/SGPT 77 U/L (12-78); AST/SGOT 18 U/L (15-37); Alkaline Phosphatase 107 U/L (45-117); BUN Blood Urea Nitrogen 20 mg/dL (7-18); Bicarbonate 23 mmol/L (21-32); Bilirubin Total 0.2 mg/dL (0.2-1.0); Glucose Level 143 mg/dL (74-106); Magnesium 2.2 mg/dL (1.8-2.4); Protein, Total 6.4 g/dL (6.4-8.2); Sodium Level 140 mmol/L (136-145)
[2021-11-04 20:14] LABS: Bilirubin Direct < 0.1 mg/dL (0-0.2)
[2021-11-04 20:18] LABS: Blood Morphology Comment NOT SEEN (NOT SEEN); Platelet Estimate ADEQ
[2021-11-04] MEDS ORDERED: NA CHLORIDE 0.9% 1,000 ML ONE ×2 (20:54→21:58)
--- NOTE | 2021-11-04 20:54 | RAD REPORT ---
EXAM DESCRIPTION: Anton Single View11/04/2021 7:43 pm CLINICAL HISTORY: cough COMPARISON: 2020 FINDINGS: [id number] bilateral pulmonary opacities. Heart is normal size IMPRESSION: Mild to moderate bilateral pulmonary opacities may indicate pneumonia
--- NOTE | 2021-11-04 20:54 | RAD REPORT ---
EXAM DESCRIPTION: CT - Chest For Pe Angio - 11/04/2021 8:46 pm CLINICAL HISTORY: Chest pain COMPARISON: None. TECHNIQUE: Dynamically enhanced axial 3 mm thick images of the chest were obtained during administra tion of <100> mL Isovue 370 IV contrast. Coronal and oblique reconstruction images were generated and reviewed. Exam utilizes a protocol for optimal evaluation of pulmonary arterial tree. Maximum intensity projections 3D imaging was utilized All CT scans are performed using dose optimization technique as appropriate and may include automated exposure control or mA/KV adjustment according to patient size. FINDINGS: A pulmonary embolus is not seen. A thoracic aortic aneurysm is not noted. Bovine aorta A pleural effusion is not seen. A pericardial effusion is not seen. Mild to moderate bilateral ground-glass opacities within the lungs. Mild right lower lobe atelectasis IMPRESSION: Negative for a pulmonary embolism. Mild to moderate bilateral ground-glass opacities within the lungs can be seen with a viral pneumonia or pneumonitis
--- NOTE | 2021-11-04 21:07 | ER ---
Nurse's Notes [facility] Name: Nancie Ordonez Age: 50 yrs Sex: Female : 1970 Arrival Date: 11/04/2021 Time: 17:44 Bed 6 Private MD: Diagnosis: Pneumonia due to other specified infectious organisms;Sepsis, unspecified organism Presentation: 11/04 17:57 Chief complaint: Patient states: Shortness of breath and pain all over the body and ww generalized weakness. Recently in ICU at [facility] and had a lung biopsy and now requiring home oxygen. Coronavirus screen: Vaccine status: Patient reports receiving the 2nd dose of the covid vaccine. Client denies travel out of the [place] in the last 14 days. Ebola Screen: Patient denies travel to an Ebola-affected area in the 21 days before illness onset. Initial Sepsis Screen: Does the patient meet any 2 criteria? No. Patient's initial sepsis screen is negative. Does the patient have a suspected source of infection? No. Patient's initial sepsis screen is negative. Risk Assessment: Do you want to hurt yourself or someone else? Patient reports no desire to harm self or others. Onset of symptoms is unknown. 17:57 Method Of Arrival: Ambulatory ww 17:57 Acuity: DEEPALI 3 ww Triage Assessment: 17:59 General: Appears uncomfortable, Behavior is cooperative. Pain: Complains of pain in ww generalized body aches. Neuro: Level of Consciousness is awake, alert, obeys commands, Oriented to person, place, time, situation. Cardiovascular: Capillary refill < 3 seconds Chest pain is denied. Respiratory: Reports shortness of breath Airway is patent Respiratory effort is labored. GI: No signs and/or symptoms were reported involving the gastrointestinal system. : No signs and/or symptoms were reported regarding the genitourinary system. Derm: No signs and/or symptoms reported regarding the dermatologic system. 23:30 Respiratory: the patient has moderate shortness of breath. st1 Historical: - Allergies: 17:59 Ibuprofen; ww 17:59 Naproxen; ww - PMHx: 17:59 Arthritis; GERD; Gout; Hypertension; ww - PSHx: 17:59 Right arm injury; Neck sx; hernia repair; ww - Immunization history:: Adult Immunizations up to date. - Social history:: Smoking status: Patient denies any tobacco usage or history of. Screenin:00 Abuse screen: Denies threats or abuse. Denies injuries from another. Nutritional bp screening: No deficits noted. Tuberculosis screening: No symptoms or risk factors identified. Fall Risk None identified. Assessment: 18:00 General: SEE TRIAGE NOTE. bp 18:00 General: Appears in no apparent distress. comfortable, obese, well developed, Behavior jh6 is calm, cooperative. 18:00 Pain: Complains of pain in generalized Pain currently is 7 out of 10 on a pain scale. jh6 Quality of pain is described as aching, Pain began 2-3 days ago. Is continuous, Aggravated by coughing or moving. Cardiovascular: Rhythm is regular. Respiratory: Airway is patent Trachea midline Respiratory effort is even, unlabored, relaxed, Respiratory pattern is regular, symmetrical. 23:30 Respiratory: Breath sounds with crackles. st1 Vital Signs: 17:57 BP 135 / 81; Pulse 116; Resp 24; Pulse Ox 100% on 3 lpm NC; Weight 84.82 kg; Height 5 ww ft. 3 in. (160.02 cm); Pain 10/10; 18:41 BP 122 / 88; Pulse 96; Resp 18; Pulse Ox 100% on 2 lpm NC; Pain 7/10; jh6 22:02 BP 128 / 92; Pulse 111; Resp 16; Temp 97.7; Pulse Ox 96% on 2 lpm NC; st1 23:31 BP 119 / 88; Pulse 102; Resp 16; Pulse Ox 96% on 3 lpm NC; st1 17:57 Body Mass Index 33.13 (84.82 kg, 160.02 cm) ED Course: 17:44 Patient arrived in ED. as 17:59 Triage completed. ww 17:59 Arm band placed on right wrist. ww 18:00 Patient has correct armband on for positive identification. Bed in low position. Call bp light in reach. Side rails up X2. Adult w/ patient. 18:22 Yemi Oliveira MD is Attending Physician. vargas 18:28 Tiago Reyes, NICCI is Primary Nurse. bp 19:05 Inserted saline lock: 22 gauge in right antecubital area, using aseptic technique. jh6 Blood collected. 19:43 XRAY Chest (1 view) In Process Unspecified. EDMS 20:15 Yemi Anderson PA is PHCP. cp 20:16 Primary Nurse role handed off by Tiago Reyes RN cs9 20:45 CT Chest For PE Angio In Process Unspecified. EDMS 20:49 Nat Sandy, NICCI is Primary Nurse. st1 21:07 Prince Giron MD is Hospitalizing Provider. cp 23:30 No provider procedures requiring assistance completed. st1 23:31 Patient admitted, IV remains in place. st1 Administered Medications: 19:06 Drug: NS 0.9% 500 ml Route: IV; Rate: bolus; Site: right forearm; jh6 19:06 Drug: Rocephin (cefTRIAXone) 1 grams Route: IV; Rate: per protocol; Site: right forearm;jh6 19:15 Drug: morphine 4 mg Route: IVP; Site: right antecubital; jh6 19:15 Drug: Zofran (Ondansetron) 4 mg Route: IVP; Site: right antecubital; jh6 20:09 Drug: Pepcid (famotidine) 20 mg Route: IVP; Site: right forearm; st1 20:10 Drug: Zithromax (azithromycin) 500 mg Route: IVPB; Infused Over: 1 hrs; Site: right st1 forearm; 20:54 Drug: NS 0.9% 1000 ml Route: IV; Rate: 1 bolus; Site: left antecubital; sm5 22:01 Drug: fentaNYL (PF) 25 mcg Route: IVP; Site: right antecubital; st1 22:01 Drug: SOLU-Medrol (methylPrednisoLONE) 125 mg Route: IVP; Site: right antecubital; st1 22:02 Drug: NS 0.9% 1000 ml Route: IV; Rate: 1 bolus; Site: right antecubital; st1 Outcome: 21:07 Decision to Hospitalize by Provider. cp 23:30 Admitted to Med/surg accompanied by tech, family with patient, via stretcher, room 214, st1 with oxygen, with chart, Report called to NICCI Noriega 23:30 Condition: stable 23:30 Instructed on the need for admit. 23:46 Patient left the ED. sm5 Signatures: Dispatcher [employer] EDMS Yemi Oliveira MD MD cha Martinez, Amelia as Page, Corey, PA PA cp Tiago Reyes, RN RN Carmen Yadav cs9 Alisha Nickerson, RN RN jh6 Leann Sanchez, RN RN sm5 Goldie Quintero, RN RN ww Nat Sandy, RN RN st1
--- NOTE | 2021-11-04 21:07 | EDPHYS ---
Physician Documentation [facility] Name: Nancie Ordonez Age: 50 yrs Sex: Female : 1970 Arrival Date: 11/04/2021 Time: 17:44 Bed 6 Private MD: ED Physician Yemi Oliveira HPI: 11/04 19:32 This 50 yrs old Black Female presents to ER via Ambulatory with complaints of Shortness vargas Of Breath, Pain All Over. Historical: - Allergies: 17:59 Ibuprofen; ww 17:59 Naproxen; ww - PMHx: 17:59 Arthritis; GERD; Gout; Hypertension; ww - PSHx: 17:59 Right arm injury; Neck sx; hernia repair; ww - Immunization history:: Adult Immunizations up to date. - Social history:: Smoking status: Patient denies any tobacco usage or history of. ROS: 19:33 Constitutional: Negative for fever, chills, and weight loss, Eyes: Negative for injury, vargas pain, redness, and discharge, ENT: Negative for injury, pain, and discharge, Neck: Negative for injury, pain, and swelling, Cardiovascular: Negative for chest pain, palpitations, and edema, Abdomen/GI: Negative for abdominal pain, nausea, vomiting, diarrhea, and constipation, Back: Negative for injury and pain, : Negative for injury, bleeding, discharge, and swelling, MS/Extremity: Negative for injury and deformity, Skin: Negative for injury, rash, and discoloration, Neuro: Negative for headache, weakness, numbness, tingling, and seizure, Psych: Negative for depression, anxiety, suicide ideation, homicidal ideation, and hallucinations, Allergy/Immunology: Negative for hives, rash, and allergies, Endocrine: Negative for neck swelling, polydipsia, polyuria, polyphagia, and marked weight changes, Hematologic/Lymphatic: Negative for swollen nodes, abnormal bleeding, and unusual bruising. 19:33 Respiratory: Positive for shortness of breath. 19:33 MS/extremity: Positive for pain, PAIN ALL OVER HER BODY. Exam: 19:33 Constitutional: This is a well developed, well nourished patient who is awake, alert, vargas and in no acute distress. Head/Face: Normocephalic, atraumatic. Eyes: Pupils equal round and reactive to light, extra-ocular motions intact. Lids and lashes normal. Conjunctiva and sclera are non-icteric and not injected. Cornea within normal limits. Periorbital areas with no swelling, redness, or edema. ENT: Nares patent. No nasal discharge, no septal abnormalities noted. Tympanic membranes are normal and external auditory canals are clear. Oropharynx with no redness, swelling, or masses, exudates, or evidence of obstruction, uvula midline. Mucous membranes moist. Neck: Trachea midline, no thyromegaly or masses palpated, and no cervical lymphadenopathy. Supple, full range of motion without nuchal rigidity, or vertebral point tenderness. No Meningismus. Chest/axilla: Normal chest wall appearance and motion. Nontender with no deformity. No lesions are appreciated. Cardiovascular: Regular rate and rhythm with a normal S1 and S2. No gallops, murmurs, or rubs. Normal PMI, no JVD. No pulse deficits. Respiratory: Lungs have equal breath sounds bilaterally, clear to auscultation and percussion. No rales, rhonchi or wheezes noted. No increased work of breathing, no retractions or nasal flaring. Abdomen/GI: Soft, non-tender, with normal bowel sounds. No distension or tympany. No guarding or rebound. No evidence of tenderness throughout. Back: No spinal tenderness. No costovertebral tenderness. Full range of motion. Skin: Warm, dry with normal turgor. Normal color with no rashes, no lesions, and no evidence of cellulitis. MS/ Extremity: Pulses equal, no cyanosis. Neurovascular intact. Full, normal range of motion. Neuro: Awake and alert, GCS 15, oriented to person, place, time, and situation. Cranial nerves II-XII grossly intact. Motor strength 5/5 in all extremities. Sensory grossly intact. Cerebellar exam normal. Normal gait. Psych: Awake, alert, with orientation to person, place and time. Behavior, mood, and affect are within normal limits. 19:33 Musculoskeletal/extremity: DVT Exam: No signs of deep vein thrombosis. no pain, no swelling, no tenderness, negative Homans' sign noted on exam, no appreciated bluish discoloration, no erythema, no increased warmth. 19:33 Neuro: Orientation: is normal, appropriate for stated age, no acute changes, Mentation: is normal, appropriate for stated age, Memory: appropriate for stated age, no acute changes, Cranial nerves: grossly normal, is grossly normal based on the patient's age, no acute changes, Sensation: is normal, no obvious gross deficits, appropriate no acute changes. Vital Signs: 17:57 BP 135 / 81; Pulse 116; Resp 24; Pulse Ox 100% on 3 lpm NC; Weight 84.82 kg; Height 5 ww ft. 3 in. (160.02 cm); Pain 10/10; 18:41 BP 122 / 88; Pulse 96; Resp 18; Pulse Ox 100% on 2 lpm NC; Pain 7/10; jh6 22:02 BP 128 / 92; Pulse 111; Resp 16; Temp 97.7; Pulse Ox 96% on 2 lpm NC; st1 23:31 BP 119 / 88; Pulse 102; Resp 16; Pulse Ox 96% on 3 lpm NC; st1 17:57 Body Mass Index 33.13 (84.82 kg, 160.02 cm) ww MDM: 18:22 Patient medically screened. vargas 19:36 Differential diagnosis: Anemia asthma, Bronchitis CHF exacerbation, Chronic Obstructive vargas Pulmonary Disease pneumonia, Pneumothorax pulmonary edema, Pulmonary Embolism reactive airway disease, Sepsis Unstable Angina. Antibiotic administration: Not indicated. The patient's Wells Deep Vein Thrombosis Score was calculated as follows: Total Score: 0-2 Pts- Low Risk. The patient's pulmonary embolism risk score was calculated as follows: Total Score: 0-2 points. This patient was found to be at low risk for a pulmonary embolism by using the Well's assessment criteria. Immunization status: Influenza vaccine: Data reviewed: vital signs, nurses notes, lab test result(s), EKG, radiologic studies, plain films. Data interpreted: ekg monitor: rate is 96 beats/min, rhythm is regular, Pulse oximetry: on room air is 100 %. Test interpretation: by ED physician or midlevel provider: ECG, plain radiologic studies. Counseling: I had a detailed discussion with the patient and/or guardian regarding: the historical points, exam findings, and any diagnostic results supporting the discharge/admit diagnosis, lab results, radiology results. 11/04 18:30 Order name: Basic Metabolic Panel; Complete Time: 21:36 vargas 11/04 20:16 Interpretation: Normal except: CL 108; GLUC 143; BUN 20; GFR 67; CA 8.4. cp 11/04 18:30 Order name: CBC with Diff; Complete Time: 20:44 vargas 11/04 20:00 Interpretation: Normal except: WBC 20.00; RBC 3.56; HGB 10.3; HCT 30.9; RDW 16.3; GLORY% cp 91.7; LYM% 5.9; MN% 2.0; NEUT A 18.3. 11/04 18:30 Order name: LFT's; Complete Time: 21:36 vargas 11/04 21:36 Interpretation: Normal except: ALB 3.0; A/G 0.9. cp 11/04 18:30 Order name: Magnesium; Complete Time: 21:36 vargas 11/04 18:30 Order name: NT PRO-BNP; Complete Time: 21:36 vargas 11/04 21:37 Interpretation: Abnormal: NT PRO-BNP 372. cp 11/04 18:30 Order name: PT-INR; Complete Time: 19:43 vargas 11/04 18:30 Order name: Troponin HS; Complete Time: 21:36 vargas 11/04 18:30 Order name: Blood Culture Adult (2) [facility] 11/04 18:30 Order name: Lactate; Complete Time: 20:00 vargas 11/04 20:00 Interpretation: Abnormal: LAC 3.5. cp 11/04 18:30 Order name: Procalcitonin; Complete Time: 20:44 vargas 11/04 21:37 Interpretation: Abnormal: Procalcitonin 0.08. cp 11/04 18:30 Order name: Urine Culture [facility] 11/04 18:30 Order name: COVID-19/FLU A+B/RSV (Document "Date of Onset" if Symptomatic); Complete [facility] Time: 21:36 11/04 18:30 Order name: D-Dimer; Complete Time: 19:43 vargas 11/04 20:18 Order name: Manual Differential; Complete Time: 20:44 EDMS 11/04 18:30 Order name: XRAY Chest (1 view); Complete Time: 21:05 vargas 11/04 21:38 Interpretation: Report review. cp 11/04 18:30 Order name: EKG; Complete Time: 18:31 vargas 11/04 18:30 Order name: Cardiac monitoring; Complete Time: 18:41 vargas 11/04 19:43 Order name: CT Chest For PE Angio; Complete Time: 21:05 vargas 11/04 18:30 Order name: O2 Per Protocol; Complete Time: 18:41 [facility] 11/04 18:30 Order name: O2 Sat Monitoring; Complete Time: 18:41 [facility] 11/04 21:36 Order name: Vital Signs: to include temp; Complete Time: 22:03 cp Administered Medications: 19:06 Drug: NS 0.9% 500 ml Route: IV; Rate: bolus; Site: right forearm; jh6 19:06 Drug: Rocephin (cefTRIAXone) 1 grams Route: IV; Rate: per protocol; Site: right forearm;jh6 19:15 Drug: morphine 4 mg Route: IVP; Site: right antecubital; jh6 19:15 Drug: Zofran (Ondansetron) 4 mg Route: IVP; Site: right antecubital; jh6 20:09 Drug: Pepcid (famotidine) 20 mg Route: IVP; Site: right forearm; st1 20:10 Drug: Zithromax (azithromycin) 500 mg Route: IVPB; Infused Over: 1 hrs; Site: right st1 forearm; 20:54 Drug: NS 0.9% 1000 ml Route: IV; Rate: 1 bolus; Site: left antecubital; 5 22:01 Drug: fentaNYL (PF) 25 mcg Route: IVP; Site: right antecubital; st1 22:01 Drug: SOLU-Medrol (methylPrednisoLONE) 125 mg Route: IVP; Site: right antecubital; st1 22:02 Drug: NS 0.9% 1000 ml Route: IV; Rate: 1 bolus; Site: right antecubital; st1 Disposition Summary: 11/04/21 21:07 Hospitalization Ordered Hospitalization Status: Inpatient Admission cp Provider: Prince nehemiah Giron Location: Telemetry/MedSurg (Inpatient) cp Condition: Fair cp Problem: new cp Symptoms: have improved cp Bed/Room Type: Standard cp Room Assignment: 214(11/04/21 23:09) cg Diagnosis - Pneumonia due to other specified infectious organisms cp - Sepsis, unspecified organism cp Forms: - Medication Reconciliation Form cp - SBAR form cp Signatures: Dispatcher [employer] Yemi Jolley MD MD cha Attema, Lee, TEXTILE DESIGNS SALES REPRESENTATIVE-C TEXTILE DESIGNS SALES REPRESENTATIVE-Cla1 Yemi Anderson PA PA cp Garcia, Cindy, RN RN Alisha Lopez, RN RN jh6 Leann Sanchez, RN RN sm5 Goldie Quintero, RN RN ww Nat Sandy, RN RN st1 Corrections: (The following items were deleted from the chart) 23: 21:07 cp cg
[2021-11-04 21:30] LABS: SARS-COV-2 RT PCR NEGATIVE (NEGATIVE)
[2021-11-04 21:33] LABS: NT PRO-BNP 372 pg/mL (<125)
[2021-11-04] MEDS ORDERED: METHYLPREDNISOLONE 125 MG INJ ONE (21:56)
[2021-11-04] MEDS ORDERED: FENTANYL CITR 100 MCG/2 ML ONE (21:58)
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
[2021-11-04] MEDS ORDERED: ONDANSETRON 4 MG/2 ML VIAL IV PRN (23:53)
[2021-11-04] MEDS ORDERED: NA CHLORIDE 0.9% 1,000 ML IV SCH (23:53)
[2021-11-04] MEDS ORDERED: BENZONATATE 100 MG CAP PO PRN (23:53)
[2021-11-04] MEDS ORDERED: ACETAMINOPHEN 500 MG TAB PO PRN (23:53)
[2021-11-04] MEDS ORDERED: HYDROCODONE/APAP 5/325 MG TAB PO PRN (23:53)
--- NOTE | 2021-11-04 23:57 | P.INFCA ---
Sepsis Focused Assessment - Focused Assessment Complete? Sepsis Focused Assessment Completed?: Yes - Sepsis Screen Result Severe Sepsis: Negative Septic Shock: Negative - Evaluation Current stage of sepsis: Ruled out Reason for ruling out sepsis: Sepsis without severe sepsis or septic shock - Vital Signs Reviewed: Yes Temperature: 98 F Heart rate: 95 Blood Pressure: 125/74 Respiratory Rate: 20 O2 Sat by Pulse Oximetry: 94 - Examination Date exam was performed: 11/04/21 Time exam was performed: 23:57
[2021-11-05] MEDS ORDERED: MORPHINE 2 MG/ML SYR IV PRN ×2 (00:22→07:09)
[2021-11-05] MEDS ORDERED: MORPHINE 4 MG/ML SYR ONE (00:36)
[2021-11-05 01:29] VITALS: BMI 33.1
[2021-11-05 05:41] LABS: Absolute Lymphocytes (CBC) 0.9 K/uL (0.7-4.9); Hematocrit 29.7 % (36.0-45.0); Lymphocytes % 4.9 % (15.3-44.8); MPV 8.4 fL (7.6-11.3); RBC Red Blood Cell Count 3.39 M/uL (3.86-4.86)
[2021-11-05 06:03] LABS: Albumin 2.7 g/dL (3.4-5.0); Bilirubin Total 0.3 mg/dL (0.2-1.0); C-Reactive Protein 3.22 mg/L (<3.00); Potassium 4.2 mmol/L (3.5-5.1); Protein, Total 5.8 g/dL (6.4-8.2); Thyroid Stimulating Hormone 0.537 uIU/mL (0.360-3.740)
[2021-11-05] MEDS ORDERED: TRAMADOL HCL 50 MG TAB PO PRN (07:01)
[2021-11-05 08:22] VITALS: BP 148/90; TEMP 97.2
[2021-11-05] MEDS ORDERED: MORPHINE 4 MG/ML SYR IV PRN (08:45)
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
[2021-11-05] MEDS ORDERED: levoFLOXacin 750 MG TAB PO SCH (09:00)
[2021-11-05] MEDS ORDERED: METHYLPREDNISOLONE 125 MG INJ IV SCH (09:00)
[2021-11-05] MEDS ORDERED: DOXYCYCLINE 100 MG CAP PO SCH (09:00)
[2021-11-05] MEDS ORDERED: PANTOPRAZOLE 40MG TABLET PO SCH (09:00)
[2021-11-05] MEDS ORDERED: ENOXAPARIN 40 MG/0.4 ML SQ SCH (09:00)
--- NOTE | 2021-11-05 09:57 | P.DS ---
Admission Date: 11/04/21 Discharge Date: 11/05/21 Disposition: ROUTINE DISCHARGE Discharge Condition: GOOD Reason for Admission: pneumonia Hospital Course: Patient is a 50-year-old -[place] female with HTN and GERD admitted ove [facility] for shortness of breath. CTA chest ruled out PE but captured mild groundglass opacities. She tested negative for COVID 19 and influenza. She was placed on abx for atypical PNA, and solumedrol. She was on room air during my encounter. She can be discharged today. Vital Signs/Physical Exam: Temp Pulse Resp BP Pulse Ox 97.2 F 99 H 16 148/90 H 96 11/05/21 08:00 11/05/21 08:00 11/05/21 08:00 11/05/21 08:00 11/05/21 08:00 General: In no apparent distress, Cooperative, Obese Respiratory: Other (R lung field with decreased breath sounds) Cardiovascular: No edema, Normal pulses, Regular rate/rhythm, Normal S1 S2 Musculoskeletal: No clubbing, No swelling, No contractures Neurological: Normal speech, Normal affect Laboratory Data at Discharge: WBC 18.70 K/uL (4.3-10.9) H 11/05/21 05:24 Hgb 9.8 g/dL (12.0-15.0) L 11/05/21 05:24 Hct 29.7 % (36.0-45.0) L 11/05/21 05:24 Plt Count 232 K/uL (152-406) 11/05/21 05:24 PT 11.1 SECONDS (9.5-12.5) 11/04/21 18:55 INR 0.97 11/04/21 18:55 Sodium 141 mmol/L (136-145) 11/05/21 05:24 Potassium 4.2 mmol/L (3.5-5.1) 11/05/21 05:24 BUN 16 mg/dL (7-18) 11/05/21 05:24 Creatinine 0.88 mg/dL (0.55-1.3) 11/05/21 05:24 Glucose 120 mg/dL (74-106) H 11/05/21 05:24 Magnesium 2.2 mg/dL (1.8-2.4) 11/04/21 18:55 Total Bilirubin 0.3 mg/dL (0.2-1.0) 11/05/21 05:24 AST 16 U/L (15-37) 11/05/21 05:24 ALT 67 U/L (12-78) 11/05/21 05:24 Alkaline Phosphatase 89 U/L (45-117) 11/05/21 05:24 Home Medications: Multivitamin with Iron [Daily Multivitamin with Iron] 1 each PO DAILY #90 tablet 04/25/17 Pantoprazole [Protonix Tab*] 40 mg PO DAILY #30 tab 04/25/17 levoFLOXacin [Levaquin*] 500 mg PO DAILY #14 tab 04/25/17 traMADol HCL [Ultram*] 50 mg PO TIDP PRN #20 tab 04/25/17 Benzonatate [Tessalon Perle*] 100 mg PO TID PRN cap 11/05/21 predniSONE [Deltasone*] 10 mg PO BID #14 tab 11/05/21 New Medications: predniSONE [Deltasone*] 10 mg PO BID #14 tab Followup: NONE,NONE [Primary Care Provider] -
[2021-11-05 10:02] VITALS: O2SAT 93
== END 2021-11-05 10:46 | disposition home or self-care (01) | DRG 871 ==
LOC: ER 17:43 → ERHOLD 21:45 → 2ND 23:17
PROVIDERS: ADMIT Internal Medicine; ATTEND Internal Medicine
DX: A41.9 Sepsis, unspecified organism (principal); J18.9 Pneumonia, unspecified organism; J96.01 Acute respiratory failure with hypoxia; I10 Essential (primary) hypertension; K21.9 Gastro-esophageal reflux disease without esophagitis; M10.9 Gout, unspecified; Z20.822 Contact with and (suspected) exposure to COVID-19; Z87.891 Personal history of nicotine dependence
CPT/HCPCS: 0241U; 36415; 71045; 71275; 80048; 80053; 80076; 83605; 83735; 83880; 84145; 84439; 84443; 84484; 85025; 85379; 85610; 86140; 87040; 94010; 99285; J0456; J1650; J2405; J2930; J3010; J7030; J7040; J7050; Q9967

== ENCOUNTER 2021-11-08 16:26 | Emergency (ER) | payer OTHER ==
--- OUTSIDE RECORDS SUMMARY | 2021-11-08 16:35 | XMS REPORT | Continuity of Care Document ---
:1970 Author Organization [facility] [place] [facility] t Address [address] [place] [address] Care Team Providers Name Role Phone [facility] Primary Care Physician Unavailable Doctor Unassigned, Name Attending Clinician Unavailable Evelin [...] (BMI 2-12 ity of 30-39.9) 30-39.9) 00:00: [place] [id number] Medical Branch Acute Acute Disease Active Univers hypoxemic hypoxemic 2-12 ity of respirator respirator [place] failure y failure 00 Medi dayna Branch Depo-Prove Depo-Prove Disease Active U [...] Date Stop Date Quantity Comments Source History SDOR University o f Alcohol Std Drinks [place] [facility] History [facility] University o f Alcohol Binge [place] Medic al Branch Exposure to Not sure [employer] of SARS-CoV-2 (event) [place] [facility] History [facility] University o f Alcohol Frequency [facility] edical Branch Alcohol intake 2021-10-24 2021-10-24 Current drinker Unive rsity of 00:00:00 00:00:00 of alcohol [place] [facility] (finding) Branch Education 2021-10-15 2021-10-15 12 University of 00:00:00 00:00:00 [facility] Tobacco Comment 2021-10-15 2021-10-15 30 years ago Univers ity of 00:00:00 00:00:00 [facility] Alcohol Comment 2016-12-14 2016-12-14 infrequent - Univers ity of 00:00:00 00:00:00 family parties, [place] Med ical wine, 12 oz/time Branch Cigarettes smoked 2016-12-14 2016-12-14 Univers ity of current (pack per 00:00:00 00:00:00 ) - Reported Branch Cigarette 2016-12-14 2016-12-14 University of pack-years 00:00:00 00:00:00 [facility] Tobacco use and 2016-12-14 2016-12-14 Never used Universit y of exposure 00:00:00 00:00:00 [facility] History of tobacco 2001-12-14 Cigarette Smoker University of use 00:00:00 [facility] Sex Assigned At [birth year] Universit y of 00:00:00 00:00:00 [facility] Smoking Status Start Date Stop Date Source Former smoker 2016-12-14 00:00:00 2016-12-14 [facility] Medications Ordered Filled Start Stop Current Ordering Indication Dosage Frequency Signature Comments Components Source Medication Medication Date Date Medication? Clinician (SIG) Name Name hydroCHLORO Yes [id number] 12.5mg Take 1 Univers thiazide 2-22 capsule by ity o f 12.5 mg 00:00: mouth [place] capsule 00 daily. Medical Branch hydroCHLORO 2021-0 Yes [id number] 12.5mg Take 1 Univers thiazide 2-22 capsule by ity o f 12.5 mg 00:00: mouth [place] capsule 00 daily. Medical Branch hydroCHLORO 2021-0 Yes [id number] 12.5mg Take 1 Univers thiazide 2-22 capsule by ity o f 12.5 mg 00:00: mouth [place] capsule 00 daily. Medical Branch hydroCHLORO 0 Yes [id number] 12.5mg Take 1 Univers thiazide 2-22 capsule by ity o f 12.5 mg 00:00: mouth [place] capsule 00 daily. Medical Branch hydroCHLORO 2021-0 2022- No [id number] 12.5mg Take 1 Univers thiazide 2-22 02-21 capsule by ity of 12.5 mg 00:00: 00:00 mouth [place] capsule 00 :00 daily for Medical 30 days. Branch hydroCHLORO 2021-0 2022- No [id number] 12.5mg Take 1 Univers thiazide 2-22 02-21 capsule by ity of 12.5 mg 00:00: 00:00 mouth [place] capsule 00 :00 daily for Medical 30 days. Branch lurasidone 0 Yes Take by Uni vers HCl (LATUDA 2-21 mouth. ity of ORAL) 17:53: [place] 11 Medical Branch lurasidone 0 Yes Take by Uni vers HCl (LATUDA 2-21 mouth. ity of ORAL) 17:53: [place] [address] Medical Branch lurasidone 0 Yes Take by Uni vers HCl (LATUDA 2-21 mouth. ity of ORAL) 17:53: [place] [address] Medical Branch lurasidone 0 Yes Take by Uni vers HCl (LATUDA 2-21 mouth. ity of ORAL) 10:59: [place] [address] Medical Branch zolpidem 2021- No 5mg 5 mg, Univers (AMBIEN) 2-21 02-21 Oral, ity of tablet 5 mg 04:00: 03:07 ONCE, 1 [place] 00 :[place] dose, On Medical Sun Branch 10/23/21 at 2200, Routine docusate 0 Yes [id number] 100mg Take 1 U nivers 100 mg 2-21 capsule by ity of capsule 00:00: mouth 2 [place] (two) Medical times Branch daily. busPIRone 5 0 Yes [id number] 5mg Take 1 Univers mg tablet 2-21 tablet by ity o f 00:00: mouth [place] (two) Medical times Branch daily. chlorhexidi 0 Yes [id number] 15mL Swish and Univers ne 0.12 % 2-21 spit out ity of mouthwash 00:00: 15 mL 2 [place] (two) Medical times Branch daily. albuterol 0 Yes [id number] 2{puff} Inhale 2 Univers 90 2-21 Puffs ity of mcg/actuati 00:00: every 6 [place] as on inhaler 00 (six) Medical hours as Branch needed for Wheezing or Shortness of Breath. predniSONE 2021-0 Yes [id number] 40mg Take 2 Univers 20 mg 2-21 tablets by ity of tablet 00:00: mouth [place] daily. Medical Branch docusate 2021-0 Yes [id number] 100mg Take 1 U nivers 100 mg 2-21 capsule by ity of capsule 00:00: mouth [place] (two) Medical times Branch daily. busPIRone 5 2021-0 Yes [id number] 5mg Take 1 Univers mg tablet 2-21 tablet by ity o f 00:00: mouth (two) Medical times Branch daily. chlorhexidi 2021-0 Yes [id number] 15mL Swish and Univers ne 0.12 % 2-21 spit out ity of mouthwash 00:00: 15 mL 2 (two) Medical times Branch daily. albuterol 2021-0 Yes [id number] 2{puff} Inhale 2 Univers 90 2-21 Puffs ity of mcg/actuati 00:00: every 6 [place] as on inhaler 00 (six) Medical hours as Branch needed for Wheezing or Shortness of Breath. predniSONE 2021-0 Yes [id number] 40mg Take 2 Univers 20 mg 2-21 tablets by ity of tablet 00:00: mouth daily. Medical Branch docusate 2021-0 Yes [id number] 100mg Take 1 U nivers 100 mg 2-21 capsule by ity of capsule 00:00: mouth (two) Medical times Branch daily. busPIRone 5 2021-0 Yes [id number] 5mg Take 1 Univers mg tablet 2-21 tablet by ity o f 00:00: mouth [place] (two) Medical times Branch daily. chlorhexidi 2021-0 Yes [id number] 15mL Swish and Univers ne 0.12 % 2-21 spit out ity of mouthwash 00:00: 15 mL 2 [place] (two) Medical times Branch daily. albuterol 2021-0 Yes [id number] 2{puff} Inhale 2 Univers 90 2-21 Puffs ity of mcg/actuati 00:00: every 6 [place] as on inhaler 00 (six) Medical hours as Branch needed for Wheezing or Shortness of Breath. predniSONE 2021-0 Yes [id number] 40mg Take 2 Univers 20 mg 2-21 tablets by ity of tablet 00:00: mouth daily. Medical Branch docusate 2021-0 Yes [id number] 100mg Take 1 U nivers 100 mg 2-21 capsule by ity of capsule 00:00: mouth [place] (two) Medical times Branch daily. albuterol 2021-0 Yes [id number] 2{puff} Inhale 2 Univers 90 2-21 Puffs ity of mcg/actuati 00:00: every 6 [place] on inhaler 00 (six) Medical hours as Branch needed for Wheezing or Shortness of Breath. busPIRone 5 Yes [id number] 5mg Take 1 Univers mg tablet 2-21 tablet by ity o f 00:00: mouth 2 [place] 00 (two) Medical times Branch daily. chlorhexidi Yes [id number] 15mL Swish and Univers ne 0.12 % 2-21 spit out ity of mouthwash 00:00: 15 mL 2 [place] 00 (two) Medical times Branch daily. predniSONE 2021- Yes [id number] 40mg Take 2 Univers 20 mg 2-21 11-24 tablets by ity of tablet 00:00: 04:59 [...] s: acute pain busPIRone 5 2021- No [id number] 5mg Take 1 Univers mg tablet -24 10- tablet by ity of 00:00: 00:00 mouth 2 [place] 00 :00 (two) Medical times Branch daily for 30 days. chlorhexidi 2021- No [id number] 15mL Swish and Univers ne 0.12 % 10-24- spit out ity o f mouthwash 00:00: 00:00 15 mL 2 [place] 00 :[place] (two) Medical times Branch daily for 7 days. albuterol 2021- No [id number] 2{puff} Inhale 2 Univers 90 10-24- Puffs ity of mcg/actuati 00:00: 00:00 every 6 [place] on inhaler 00 :00 (six) Medical hours as Branch needed for Wheezing or Shortness of Breath. predniSONE 2021- No [id number] 40mg Take 2 Univers 20 mg 10-24- tablets by ity of tablet 00:00: 00:00 mouth [place] 00 :00 daily for Medical 30 days. Branch busPIRone 5 2021- No [id number] 5mg Take 1 Univers mg tablet 10-24- tablet by ity of 00:00: 00:00 mouth 2 [place] 00 :00 (two) Medical times Branch daily for 30 days. chlorhexidi 2021- No [id number] 15mL Swish and Univers ne 0.12 % 10-24 spit out ity o f mouthwash 00:00: 00:00 15 mL 2 [place] 00 :[place] (two) Medical times Branch daily for 7 days. phenoL Yes 1{spray 1 [place], Univ ers (SORE 2-20 } Oral, PRN, ity of THROAT 19:03: Starting [place] (PHENOL)) 59 on Sun Medical 1.4 % spray 10/23/21 at Br anch bottle 1 1303, [place] Until Discontinu ed, Routine, Sore throat phenoL Yes 1{spray 1 [place], Univ ers (SORE 2-20 } Oral, PRN, ity of THROAT 19:03: Starting [place] (PHENOL)) 59 on Sun Medical 1.4 % spray 10/23/21 at Br anch bottle 1 1303, [place] Until Discontinu ed, Routine, Sore throat zolpidem 2021- No 5mg 5 mg, Univers (AMBIEN) 2-20 02-20 Oral, ity of tablet 5 mg 04:00: 03:54 ONCE, 1 [place] 00 :00 dose, On Medical [facility] Branch 10/22/21 at 2200, Routine methylpredn 2022-0 Yes 125mg 125 mg, Un guillermina isolone sod 2-19 Intravenou it y of succ 20:00: s, Q8H, [place] (SOLU-MEDRO 00 First dose Me dical L) (after Branch injection last 125 mg modificati on) on [facility] 10/22/21 at 1400, Until Discontinu ed, Routine methylpredn 2022-0 Yes 125mg 125 mg, Un guillermina isolone sod 2-19 Intravenou it y of succ 20:00: s, Q8H, [place] (SOLU-MEDRO 00 First dose Me dical L) (after Branch injection last 125 mg modificati on) on [facility] 10/22/21 at 1400, Until Discontinu ed, Routine hydroCHLORO 2022-0 Yes 12.5mg 12.5 mg, Univers thiazide 2-19 Oral, ity of (ESIDRIX) 15:30: DAILY, [place] capsule 00 First dose Medica l 12.5 mg on [facility] Branch 10/22/21 at 0930, Until Discontinu ed, Routine amLODIPine 2022-0 Yes 10mg 10 mg, Unive rs (NORVASC) 2-19 Oral, ity of tablet 10 15:30: DAILY, [place] mg 00 First dose Medical on Sat Branch 10/22/21 at 0930, Until Discontinu ed, Routine hydroCHLORO 2022-0 Yes 12.5mg 12.5 mg, Univers thiazide 2-19 Oral, ity of (ESIDRIX) 15:30: DAILY, [place] capsule 00 First dose Medica l 12.5 mg on [facility] Branch 10/22/21 at 0930, Until Discontinu ed, Routine amLODIPine 2022-0 Yes 10mg 10 mg, Unive rs (NORVASC) 2-19 Oral, ity of tablet 10 15:30: DAILY, [place] mg 00 First dose Medical on Sat Branch 10/22/21 at 0930, Until Discontinu ed, Routine acetaminoph 2022-0 Yes 650mg 650 mg, Un guillermina en 2-19 Oral, ity of (TYLENOL) 09:54: Q6HPRN, [place] tablet 650 49 Starting Medic al mg on Sat Branch 10/22/21 at 0354, Until Discontinu ed, Routine, Pain (scale 1-3) acetaminoph Yes 650mg 650 mg, Un guillermina en 10-22 Oral, ity of (TYLENOL) 09:54: Q6HPRN, [place] tablet 650 49 Starting Medic al mg on Sat Branch 10/22/21 at 0354, Until Discontinu ed, Routine, Pain (scale 1-3) chlorhexidi 2021-0 Yes 15mL 15 mL, Univ ers ne 10-22 Oral ity of (PERIDEX) 02:00: ([place] 0.12 % 00 Spit Out), Medical mouthwash BID, First Bran ch 15 mL dose on Sun10/21/21 at 1999, Until Discontinu ed, Routine chlorhexidi 2021-0 Yes 15mL 15 mL, Univ ers ne 10-22 Oral ity of (PERIDEX) 02:00: ([place] 0.12 % 00 Spit Out), Medical mouthwash BID, First Bran ch 15 mL dose on Sun10/21/21 at 1999, Until Discontinu ed, Routine dexMEDEtomi 2021- No [...] allowed dose, contact prescriber .
propofoL IV 2021- No 5ug/kg/ 5-50 Un guillermina infusion 10-21 02-19 min mcg/kg/min ity of 20:41: 15:22 ?99.8 kg [place] 59 :55 (2.994-29. Medical 94 mL/hr, Branch [...] 2021- No 25ug/h 25-200 U nivers (SUBLIMAZE) 10-21- mcg/hr ity o f STD 2,500 19:53: [...] on Sun [place] 4 % (40 10/21/21 at Medica l mg/mL) 1300, Branch topical Until solution Discontinu ed, Routine, Intra-op lidocaine Yes PRN, Univers 4% -18 Starting ity of (XYLOCAINE) 19:00: on Sun [place] 4 % (40 00 10/21/21 at Medica l mg/mL) 1300, Branch topical Until solution Discontinu ed, Routine, Intra-op methylpredn 2021- No 125mg 125 mg, U nivers isolone sod 10-21 Intravenou i ty of succ 19:00: 15:22 s, Q6H, [place] (SOLU-MEDRO 00 :22 First dose Me dical L) (after Branch injection last 125 mg modificati on) on Sun10/21/21 at 1300, Until Discontinu ed, Routine metoprolol 2021-0 2021- No 5mg 5 mg, Slow Univers (LOPRESSOR) 10-2118 IV [place], ity of injection 5 19:00: 19:00 ONCE, 1 [place] mg 00 :00 dose, On Fri Branch 10/21/21 at 1300, Routine EPINEPHrine 2021-0 Yes PRN, Univer s 1:1,000 (1 10-21 Starting ity o f mg/mL) 18:01: on Sun [place] (ADRENALIN) 10/21/21 at Ar dical injection 1201, Branch Until Discontinu ed, Routine, Intra-op EPINEPHrine 2021-0 Yes PRN, Univer s 1:1,000 (1 10-21 Starting ity o f mg/mL) 18:01: on Sun [place] (ADRENALIN) 10/21/21 at Ar dical injection 1201, Branch Until Discontinu ed, Routine, Intra-op ondansetron 2021-0 Yes 4mg 4 mg, Slow Univers (ZOFRAN 2-18 IV Push, ity of (PF)) 17:19: PRN, 1 [place] injection 4 50 dose, Medical mg Starting Branch on Sun10/21/21 at 1119, Until Discontinu ed, Routine, Nausea and Vomiting (N/V), PACU ondansetron 2-0 Yes 4mg 4 mg, Slow Univers (ZOFRAN 2-18 IV Push, ity of (PF)) 17:19: PRN, 1 [place] injection 4 50 dose, Medical mg Starting Branch on Sun10/21/21 at 1119, Until Discontinu ed, Routine, Nausea and Vomiting (N/V), PACU NaCl 0.9% 2021-0 Yes PRN, Univers (NS) 10-21 Starting ity of injection 17:01: on Sun10/21/21 at [facility] 1101, Branch Until Discontinu ed, Routine, Intra-op NaCl 0.9% 2021-0 Yes PRN, Univers (NS) 10-21 Starting ity of injection 17:01: on 10/21/22 at Medical 1101, Branch Until Discontinu ed, Routine, Intra-op morpHINE 2021-0 Yes 4mg 4 mg, Slow Uni vers injection 4 17 IV Push, ity of mg 23:22: Q4HPRN, [place] 52 Starting Medical on Nicole Branch 10/20/21 at 1722, Until Discontinu ed, Routine, Pain (scale 7-10) morpHINE 2021-0 Yes 4mg 4 mg, Slow Uni vers injection 4 17 IV Push, ity of mg 23:22: Q4HPRN, [place] 52 Starting Medical on [place] Branch 10/20/21 at 1722, Until Discontinu ed, Routine, Pain (scale 7-10) methylpredn 2021- No 125mg 125 mg, U nivers isolone sod 10-20 Intravenou i ty of succ 20:00: 17:53 s, Q8H, [place] (SOLU-MEDRO 00 :24 First dose Me dical L) (after Branch injection last 125 mg modificati on) on [facility] 10/20/21 at 1400, Until Discontinu ed, Routine furosemide 2021- No 40mg 40 mg, Univ ers (LASIX) 10-20 Slow IV ity of injection 18:00: 18:19 Push, [place] 40 mg 00 :00 ONCE, 1 Medical dose, On Branch [facility] 10/20/21 at 1200, Routine pantoprazol 2021-0 Yes 40mg 40 mg, Univ ers e 2-17 Oral, ity of (PROTONIX) 16:45: DAILY, [place] EC tablet 00 First dose Medi dayna 40 mg on [facility] Branch 10/20/21 at 1045, Until Discontinu ed, Routine pantoprazol 2021-0 Yes 40mg 40 mg, Univ ers e 2-17 Oral, ity of (PROTONIX) 16:45: DAILY, [place] EC tablet 00 First dose Medi dayna 40 mg on [facility] Branch 10/20/21 at 1045, Until Discontinu ed, Routine alum-mag 2021-0 Yes 30mL 30 mL, Univers hydroxide-s 10-20 Oral, ity of imeth 16:37: Q6HPRN, [place] (MAALOX 49 Starting Medical PLUS / on [facility] Branch MAG-AL 10/20/21 at PLUS) 1037, 200-200-20 Until mg/5 mL Discontinu suspension ed, 30 mL Routine, Indigestio n alum-mag 0 Yes 30mL 30 mL, Univers hydroxide-s 2-17 Oral, ity of imeth 16:37: Q6HPRN, [place] (MAALOX 49 Starting Medical PLUS / on [facility] MAG-AL 10/20/21 at [facility]) 1037, 200-200-20 Until mg/5 mL Discontinu suspension ed, 30 mL Routine, Indigestio n acetaminoph 2021- No 650mg 650 mg, U nivers en 10-20 Oral, ity of (TYLENOL) 16:16: 17:01 Q6HPRN, [place] tablet 650 26 :51 Starting Medic al mg on [facility] 10/20/21 at 1016, Until Sun10/21/21 at 1101, Routine, Pain (scale 1-3) polyethylen 0 Yes 17g 17 g, Unive rs e glycol 2-17 Oral, ity of 3350 powder 15:00: DAILY, [place] 17 g 00 First dose Medical on [facility] 10/20/21 at 0900, Until Discontinu ed, Routine polyethylen 0 Yes 17g 17 g, Unive rs e glycol 2-17 Oral, ity of 3350 powder 15:00: DAILY, [place] 17 g 00 First dose Medical on [facility] 10/20/21 at 0900, Until Discontinu ed, Routine docusate 2021-0 Yes 100mg 100 mg, Unive rs (COLACE) 2-17 Oral, BID, ity o f capsule 100 02:00: First dose [place] mg 00 on Sun [facility] 10/19/21 at Branch 1999, Until Discontinu ed, Routine docusate 2021-0 Yes 100mg 100 mg, Unive rs (COLACE) 2-17 Oral, BID, ity o f capsule 100 02:00: First dose [place] mg 00 on Sun [facility] 10/19/21 at Branch 1999, Until Discontinu ed, Routine hydralAZINE 0 Yes 10mg 10 mg, Univ ers (APRESOLINE 2-16 Slow IV ity o f ) injection 11:35: Push, [place] 10 mg 36 Q4HPRN, Medical Starting [place] on Sun10/19/21 at 0535, Until Discontinu ed, [...] Sun Branch 10/19/21 at 0245, Routine pantoprazol 2021- No 40mg 40 mg, Uni vers e 10-18 Slow IV ity of (PROTONIX) 01:45: 16:42 Push, [place] injection 00 :17 Q24H, Medical 40 mg First dose Branch on Sun10/17/21 at 1945, Until Discontinu ed methylpredn 2021- No 125mg 125 mg, U [...] mg 00 :00 1 dose, On Medical Sun Branch 10/17/21 at 1230, Routine methylPREDN No 125mg 125 mg, U nivers ISolone 10-17 Slow IV ity of sodium 18:00: 18:28 [place], Q6H, [place] succinate 00 :52 First dose Medi dayna (SOLU-MEDRO on Sun Branch L) 10/17/21 at injection 1200, 125 mg Until Discontinu ed, Routine thiamine 2021-0 2021- No 100mg IV Univers (VITAMIN 10-17 Piggyback, ity of B1) 100 mg 17:45: 14:08 DAILY, 3 [place] in NaCl 00 :00 doses, Medical 0.9% (NS) First dose Bran ch piggyback on Sun10/17/21 at 1145, Last dose on Sun10/19/21 at 0900, 50 mL LORazepam 2021-0 2021- No 1mg 1 mg, Slow U nivers (ATIVAN) -10-19 IV Push, ity of injection 1 17:00: 17:33 Q4HPRN, [place] mg 00 :38 Starting Medical on Sun10/17/21 at 1100, Until Sun10/19/21 at 1133, Routine, Anxiety, Agitation ipratropium 2021-0 Yes 3mL 3 mL, Unive rs -albuteroL 2-14 Inhalation ity of (DUONEB) 14:00: , Q4H, [place] 0.5 mg-3 00 First dose Medic al mg(2.5 mg on Sun [facility])/3 mL 10/17/21 at nebulizer 0800, solution 3 Until mL Discontinu ed, Routine ipratropium 2021-0 Yes 3mL 3 mL, Unive rs -albuteroL -14 Inhalation ity of (DUONEB) 14:00: , Q4H, [place] 0.5 mg-3 00 First dose Medic al mg(2.5 mg on [facility] )/3 mL 10/17/21 at nebulizer 0800, solution 3 Until mL Discontinu ed, Routine lidocaine 2021-0 2021- No 5mL 5 mL, Univer s 1% (PF) -17 10-14 Subcutaneo ity o f (XYLOCAINE) 13:45: 13:45 , ONCE, [place] injection 5 00 :00 1 dose, On Me dical mL Sun10/17/21 at 0745, Routine NaCl 0.9% 2021-0 Yes 10mL 10 mL, Univer s (NS) 2-14 Slow IV ity of injection 13:27: [place], PRN, [place] 10 mL 33 Starting Medical on Sun10/17/21 at 0727, Until Discontinu ed, Routine, line maintenanc e NaCl 0.9% Yes 10mL 10 mL, Univer s (NS) 10-17 Slow IV ity of injection 13:27: [place], PRN, [place] 10 mL 33 Starting Medical on Mon Branch 10/17/21 at 0727, Until Discontinu ed, Routine, line maintenanc e haloperidol 2021- No 5mg 5 mg, Slow Univers lactate 10-17 IV Push, ity of (HALDOL) 04:00: 03:03 ONCE, 1 [place] injection 5 00 :00 dose, On Medi dayna mg [facility] 10/16/21 at 2200, Routine busPIRone Yes 5mg 5 mg, Univers (BUSPAR) 2-14 Oral, BID, ity o f tablet 5 mg 02:00: First dose [place] 00 on On License Of [facility] 10/16/21 at [place] 2000, Until Discontinu ed, Routine busPIRone Yes 5mg 5 mg, Univers (BUSPAR) 2-14 Oral, BID, ity o f tablet 5 mg 02:00: First dose 00 on On License Of [facility] 10/16/21 at [place] 1999, Until Discontinu ed, Routine methylpredn No 60mg 60 mg, Uni vers isolone sod 10-16 Slow IV ity of succ 23:00: 17:25 Push, Q8H, [place] (SOLU-MEDRO 00 :30 First dose Me dical L) on [facility] injection 10/16/21 at 60 mg 1700, Until Discontinu ed, Routine HYDROcodone No 1{tbl} 1 tablet, Univers -acetaminop 10-16 Oral, ity of hen (NORCO 19:49: 17:01 Q6HPRN, [place] as 5) 5-325 mg 46 :51 Starting Medi dayna tablet 1 on [facility] tablet 10/16/21 at 1349, Until Sun10/21/21 at 1101, Routine, Pain (scale 4-6) cefTRIAXone [...] dose Bran ch (NS) 250 mL on [place] VIAL-MATE 10/16/21 at IV 1230, Last piggyback dose on 10/18/21 at 1230, Administer over 60 Minutes, 250 mL
Reas on for Anti-Infec tive: Documented Infection& lt;br>Docu mented Infection Site: Respirator y
Durat ion of Therapy: Other (see Comments) dexMEDEtomi 2021- No .2ug/kg 0.2-1.5 Univers dine 400 10-16 / mcg/kg/hr ity o f mcg in 0.9 [...] 16:47 [place], [place] 0.5 mg 49 :31 [id number], Medical Starting Branch on 10/15/21 at 1543, Until 10/17/21 at 1047, Routine, Anxiety iopamidol 2021- No [id number] 100mL 100 mL, Univers (ISOVUE 10-15 Intravenou [...] at infusion 1 0815, g Routine insulin 2021- No 10U 10 Units, Univ ers regular 10-15 IV Push, ity of human 14:15: 13:37 ONCE, 1 [place] (HUMULIN R) 00 :00 dose, On Medi dayna injection Sat Branch 10 Units 10/15/21 at 0815, Routine dextrose 50 50mL 50 mL, Uni vers % in water 10-15 Slow IV ity o f (D50W) 14:15: 13:37 Push, [place] injection 00 :00 ONCE, 1 Medical 50 mL dose, On Branch 10/15/21 at 0815, Routine heparin No 5000U 5,000 Univers (porcine) 10-15 Units, ity of injection 12:00: 16:12 Subcutaneo [place] 5,000 Units 00 :17 us, Q8H, Medi dayna First dose Branch on 10/15/21 at 0600, Until Discontinu ed, Routine vancomycin No 15mg/kg 1,500 mg Univers 1500 mg in 10-15 (15 mg/kg ity of NS 500 mL 10:00: 16:12 ?100 kg), [place] IV 00 :17 IV Medical Piggyback Piggyback, [facility] ch RTU 1,500 Q12H ABX, mg First dose on 10/15/21 at 0400, Until Discontinu ed, Administer over 90 Minutes
Reason for Anti-Infec tive: Documented Infection< br>Documen britney Infection Site: Blood
D uration of Therapy: 7 days ceFEPIme No 1000mg 1,000 mg, U nivers (MAXIPIME) 10-15 IV ity of 1,000 mg in 09:15: 16:[facility], [place] NaCl 0.9% 00 :17 Q12H ABX, Medic al (NS) 50 mL First dose [facility] MINI-BAG on 10/15/21 at 0315, Until Discontinu ed, Administer over 30 Minutes, 50 mL
Reas on for Anti-Infec tive: Documented Infection< br>Documen britney Infection Site: Blood
D uration of Therapy: 7 days ipratropium Yes 3mL 3 mL, Unive rs -albuteroL [...] Wheezing, Shortness of Breath, Bronchospa sm morpHINE 0 2021- No 4mg 4 mg, Slow Un guillermina injection 4 10-15 02-16 IV Push, ity of mg 08:04: 17:33 Q4HPRN, [place] 38 :44 Starting Medical on Sat Branch 10/15/21 at 0204, Until 10/19/21 at 1133, Routine, Pain (scale 7-10) lurasidone Yes Take by Uni vers HCl (LATUDA 7-17 mouth. ity of ORAL) 10:16: [place] 57 Medical Branch betamethaso Yes SMILEY EXT AA [...] of 0.1 % 00:00: ointment Medical Branch triamterene Yes TK 1 C [...] of tablet 00:00: FOR Medical Branch proMETHazin 2017-0 Yes TK 1 T PO U nivers [...] tablet 3-21 Q NIGHTLY ity of 00:00: [facility] Branch amLODIPine Yes TK 1 T PO Un guillermina 5 mg tablet 3-21 Q NIGHTLY ity of 00:00: [facility] Branch amLODIPine Yes TK 1 T PO Un guillermina 5 mg tablet 3-21 Q NIGHTLY ity of 00:00: [facility] amLODIPine Yes TK 1 T PO Un guillermina 5 mg tablet 3-21 Q NIGHTLY ity of 00:00: [facility] HYDROcodone Yes 1{tbl} Take 1 Un guillermina -acetaminop 2-08 tablet by ity of hen 10-325 00:00: mouth. [place] mg tablet 00 Medical Branch HYDROcodone 2021- No 1{tbl} Take 1 U nivers -acetaminop 2-08 02-21 tablet by it y of hen 10-325 00:00: 00:00 mouth. [place] mg tablet 00 :00 [facility] HYDROcodone 2021- No 1{tbl} Take 1 U nivers -acetaminop 2-08 02-21 tablet by it y of hen 10-325 00:00: 00:00 mouth. [place] mg tablet 00 :00 Medical Branch betamethaso Yes [id number] Apply to [facility] ne 2-13 area(s) ity of dipropionat 00:00: two (2) [place] as e 00 times Medical (DIPROLENE) daily. Branch 0.05 % cream betamethaso Yes [id number] Apply to Univers ne 2-13 area(s) ity of dipropionat 00:00: two (2) [place] as e 00 times Medical (DIPROLENE) daily. Branch 0.05 % cream betamethaso 2013-0 Yes [id number] Apply to [facility] ne 2-13 area(s) ity of dipropionat 00:00: two (2) [place] as e 00 times Medical (DIPROLENE) daily. Branch 0.05 % cream betamethaso 2013-0 Yes [id number] Apply to [facility] ne 2-13 area(s) ity of dipropionat 00:00: two (2) José Miguel as e 00 times Medical (DIPROLENE) daily. Branch 0.05 % cream betamethaso 2012-0 Yes [id number] Apply to [facility] ne 2-13 area(s) ity of dipropionat 00:00: two (2) José Miguel as e 00 times Medical (DIPROLENE) daily. Branch 0.05 % cream Immunizations Ordered Filled Immunization Date Status Comments [facility] e Immunization Name Name SARS-COV-2 COVID-19 2021-03-03 Completed Unive rsity of MODERNA VACCINE 00:00:00 [facility] SARS-COV-2 COVID-19 2021-03-03 Completed Unive rsity of MODERNA VACCINE 00:00:00 [facility] SARS-COV-2 COVID-19 2021-03-03 Completed Unive rsity of MODERNA VACCINE 00:00:00 [facility] SARS-COV-2 COVID-19 2021-03-03 Completed Unive rsity of MODERNA VACCINE 00:00:00 [facility] SARS-COV-2 COVID-19 2021-02-01 Completed Unive rsity of MODERNA VACCINE 00:00:00 [facility] SARS-COV-2 COVID-19 2021-02-01 Completed Unive rsity of MODERNA VACCINE 00:00:00 [facility] SARS-COV-2 COVID-19 2021-02-01 Completed Unive rsity of MODERNA VACCINE 00:00:00 [facility] SARS-COV-2 COVID-19 2021-02-01 Completed Unive rsity of MODERNA VACCINE 00:00:00 [facility] Influenza Virus 2007-07-02 Completed Universit y of Vaccine 00:00:00 [facility] Influenza Virus 2007-07-02 Completed Universit y of Vaccine 00:00:00 [facility] Influenza Virus 2007-07-02 Completed Universit y of Vaccine 00:00:00 [facility] Influenza Virus 2007-07-02 Completed Universit y of Vaccine 00:00:00 [facility] Influenza Virus 2007-07-02 Completed Universit y of Vaccine 00:00:00 [facility] Vital Signs Vital Name Observation Time Observation Value Comments Source Systolic blood 2021-10-24 17:05:00 143 mm[Hg] Univer sity of pressure [facility] Branch Diastolic blood 2021-10-24 17:05:00 90 mm[Hg] Unive rsity of pressure [facility] Heart rate 2021-10-24 17:05:00 103 /min Universi ty [facility] Body temperature 2021-10-24 17:05:00 36.22 Carleen Univ ersity of [facility] Branch Respiratory rate 2021-10-24 17:05:00 18 /min Univ ersity of [facility] Oxygen saturation in 2021-10-24 17:05:00 95 /min University of Arterial blood by Parents R People Pulse oximetry Branch Body weight 2021-10-22 10:08:00 71.215 kg bed scale [facility] [place] [facility] BMI 2021-10-22 10:08:00 28.72 kg/m2 [facility] [place] [facility] Body height 2021-10-17 14:00:00 157.5 cm [facility] [place] [facility] Systolic blood 2021-10-21 15:36:00 129 mm[Hg] Univer sity of pressure [facility] Branch Diastolic blood 2021-10-21 15:36:00 82 mm[Hg] Unive rsity of pressure [facility] Heart rate 2021-10-21 15:36:00 100 /min Universi ty [facility] Respiratory rate 2021-10-21 15:36:00 20 /min Univ ersity of [facility] Oxygen saturation in 2021-10-21 15:36:00 100 /min University of Arterial blood by [employer] dayna Pulse oximetry Branch Body temperature 2021-10-21 13:07:00 36.83 Carleen Univ ersity of [facility] Body height 2021-10-17 14:00:00 157.5 cm [facility] [place] [facility] Body weight 2021-10-17 14:00:00 99.791 kg [facility] BMI 2021-10-17 14:00:00 28.72 kg/m2 [facility] Procedures Procedure Date / Time Performing Clinician Source Performed EXTERNAL PROVIDER - 2021-11-03 06:01:00 Doctor Unassigned, [facility] WOMEN'S SERVICES [place] [facility] RADIOLOGY XR CHEST 1 2021-10-24 18:45:48 Abu Malilewis [facility] XR CHEST 1 2021-10-24 18:45:48 Abu Malilewis [facility] BASIC METABOLIC PANEL 2021-10-24 12:36:00 Renato Guthrie [facility] (NA, K, CL, CO2, GLUCOSE, Medica l Branch BUN, CREATININE, CA) CBC WITHOUT DIFF 2021-10-24 12:36:[address] [facility] BASIC METABOLIC PANEL 2021-10-24 12:36:00 Renato Guthrie [facility] (NA, K, CL, CO2, GLUCOSE, Medica l Branch BUN, CREATININE, CA) CBC WITHOUT DIFF 2021-10-24 12:36:[address] [facility] XR CHEST 1 2021-10-22 15:58:26 Abu Mali [facility] XR CHEST 1 2021-10-22 15:58:26 Sunday Samson [facility] MAGNESIUM 2021-10-22 10:47:00 [facility] BASIC METABOLIC PANEL 2021-10-22 10:47:00 Rose [facility] (NA, K, CL, CO2, GLUCOSE, Medica l Branch BUN, CREATININE, CA) CBC WITH DIFF 2021-10-22 10:47:00 Zelda Rose [facility] MAGNESIUM 2021-10-22 10:47:00 [facility] BASIC METABOLIC PANEL 2021-10-22 10:47:00 Zelda Rose [facility] (NA, K, CL, CO2, GLUCOSE, Medica l Branch BUN, CREATININE, CA) CBC WITH DIFF 2021-10-22 10:47:00 Zelda Rose o f [facility] XR CHEST 1 VW 2021-10-21 22:10:[address] [facility] XR CHEST 1 VW 2021-10-21 22:10:00 Abki Samson [facility] AC PANEL 20 + LACTIC ACID 2021-10-21 20:28:00 Abki Olivarez [facility] AC PANEL 20 + LACTIC ACID 2021-10-21 20:28:00 Sunday Samson [facility] CYTO BAL 2021-10-21 18:49:00 Sunday Olivarez [facility] BODY FLUID DIRECT COUNT 2021-10-21 18:47:00 Sunday Olivarez [facility] BODY FLUID DIRECT COUNT 2021-10-21 18:47:00 Sunday Olivarez [facility] Rudd [facility] AFB CULTURE 2021-10-21 18:46:00 ki Mali [facility] FUNGUS (ROUTINE) CULTURE 2021-10-21 18:46:00 Merged With [facility] MYCOBACTERIUM 2021-10-21 18:46:00 Merged With [facility] TUBERCULOSIS COMPLEX PCR [facility] RESPIRATORY PANEL BY PCR 2021-10-21 18:46:00 [facility] AFB CULTURE 2021-10-21 18:46:00 ki Mali [facility] FUNGUS (ROUTINE) CULTURE 2021-10-21 18:46:[facility] MYCOBACTERIUM 2021-10-21 18:46:00 Merged With [facility] TUBERCULOSIS COMPLEX PCR [facility] RESPIRATORY PANEL BY PCR 2021-10-21 18:46:00 Merged With [facility] BASIC METABOLIC PANEL 2021-10-21 18:44:00 Sunday Samson [facility] (NA, K, CL, CO2, GLUCOSE, Medica l Branch BUN, CREATININE, CA) BASIC METABOLIC PANEL 2021-10-21 18:44:00 Abu Anaya Olivarez [facility] (NA, K, CL, CO2, GLUCOSE, Medica l Branch BUN, CREATININE, CA) CBC WITH DIFF 2021-10-21 18:41:[address] [facility] PROTHROMBIN TIME / INR 2021-10-21 18:41:00 [facility]aya [facility]IB[facility] 2021-10-21 18:41:[address] [facility] CBC WITH DIFF 2021-10-21 18:41:[address] [facility] PROTHROMBIN TIME / INR 2021-10-21 18:41:00 [facility]aya [facility] FIB[facility] 2021-10-21 18:41:00 Abu Sher [facility] ANTI-NUCLEAR ANTIBODY 2021-10-21 18:41:00 Abki Anaya Olivarez [facility] FL TIME OR 2021-10-21 18:18:06 Abu Anaya Olivarez [facility] (NON-REPORTABLE) [facility] Branch FL TIME OR 2021-10-21 18:18:06 Abu Sher Anaya [facility] (NON-REPORTABLE) [facility] FLEXIBLE BRONCHOSCOPY 2021-10-21 16:21:00 Abu Anaya [facility] FLEXIBLE BRONCHOSCOPY 2021-10-21 16:21:00 Abki [facility]on[facility]aya [facility] XR CHEST 1 VW 2021-10-20 11:13:[address] [facility] XR CHEST 1 VW 2021-10-20 11:13:[address] [facility] CBC WITH DIFF 2021-10-20 10:30:00 Maggie Morgan [facility] CBC WITH DIFF 2021-10-20 10:30:00 Maggie Morgan [facility] URIC ACID 2021-10-20 10:29:[address] [facility] BASIC METABOLIC PANEL 2021-10-20 10:29:00 Maggie Morgan [facility] (NA, K, CL, CO2, GLUCOSE, Medica l Branch BUN, CREATININE, CA) URIC ACID 2021-10-20 10:29:[address] [facility] BASIC METABOLIC PANEL 2021-10-20 10:29:00 Maggie Morgan [facility] (NA, K, CL, CO2, GLUCOSE, Medica l Branch BUN, CREATININE, CA) XR CHEST 1 VW 2021-10-19 18:11:14 [facility]W 2021-10-19 18:11[facility]14 [facility] CBC WITH DIFF 2021-10-19 09:05:00 Maggie Morgan [facility] CBC WITH DIFF 2021-10-19 09:05:00 Maggie Morgan [facility] MAGNESIUM 2021-10-19 09:04:00 Ezzo [facility] BASIC METABOLIC PANEL 2021-10-19 09:04:00 Maggie Morgan [facility] (NA, K, CL, CO2, GLUCOSE, Medica l Branch BUN, CREATININE, CA) MAGNESIUM 2021-10-19 09:04:00 Ezzo, [facility] BASIC METABOLIC PANEL 2021-10-19 09:04:00 Maggie Morgan [facility] (NA, K, CL, CO2, GLUCOSE, Medica l Branch BUN, CREATININE, CA) POCT GLUCOSE (AUTOMATED) 2021-10-19 02:24:00 Blanca [facility]ala[facility]a [facility] POCT GLUCOSE (AUTOMATED) 2021-10-19 02:24:00 Blanca Talavera [facility] COVID-19 (MOLECULAR 2021-10-18 19:48:00 Vale Jones [facility] NUCLEIC ACID AMPLIFICATION) LAB ONLY COVID 2021-10-18 19:48:00 Vale Jones [facility] INTERPRETATION [facility] COVID-19 (MOLECULAR 2021-10-18 19:48:00 Vale Jones [facility] TESTING [facility] NUCLEIC ACID AMPLIFICATION) LAB ONLY COVID 2021-10-18 19:48:00 Robert [facility] INTERPRETATION [facility] ANGIOTENSIN CONVERTING 2021-10-18 19:45:00 [facility] RHEUMATOID FACTOR 2021-10-18 19:45:00 Amadou Putnam [facility] ANCA SCREEN 2021-10-18 19:45:00 Robert [facility] ANGIOTENSIN CONVERTING 2021-10-18 19:45:00 [facility] 2021-10-18 19:45:00 Amadou Putnam [facility] ANCA SCREEN 2021-10-18 19:45:00 Robert [facility] XR CHEST 1 VW 2021-10-18 12:37:00 Abu Sher [facility] XR CHEST 1 VW 2021-10-18 12:37:00 Sunday Olivarez [facility] PHOSPHORUS 2021-10-18 09:30:00 Rose [facility] MAGNESIUM 2021-10-18 09:30:00 Rose [facility] BASIC METABOLIC PANEL 2021-10-18 09:30:00 Rose [facility] (NA, K, CL, CO2, GLUCOSE, Medica l Branch BUN, CREATININE, CA) CBC WITH DIFF 2021-10-18 09:30:00 Rose [facility] GLYCOSYLATED HEMOGLOBIN 2021-10-18 09:30:00 Maggie Morgan [facility] (A1C) Medical Branch PHOSPHORUS 2021-10-18 09:30:00 Rose [facility] MAGNESIUM 2021-10-18 09:30:00 Rose [facility] BASIC METABOLIC PANEL 2021-10-18 09:30:00 Rose [facility] (NA, K, CL, CO2, GLUCOSE, Medica l Branch BUN, CREATININE, CA) CBC WITH DIFF 2021-10-18 09:30:00 Zelda Rose [facility] GLYCOSYLATED HEMOGLOBIN 2021-10-18 09:30:00 Maggie Morgan [facility] (A1C) Medical [facility] BASIC METABOLIC PANEL 2021-10-18 00:43:00 Abu [facility] (NA, K, CL, CO2, GLUCOSE, Medica l Branch BUN, CREATININE, CA) BASIC METABOLIC PANEL 2021-10-18 00:43:00 Abu Ather, [facility] (NA, K, CL, CO2, GLUCOSE, Medica l Branch BUN, CREATININE, CA) N-TERMINAL PRO-BNP 2021-10-17 21:27:00 [facility]MINAL PRO-BNP 2021-10-17 21:27:00 Josie [facility] TRANSTHORACIC ECHO (TTE) 2021-10-17 17:05:00 Bk [facility] TRANSTHORACIC ECHO (TTE) 2021-10-17 17:05:00 Bk [facility] XR CHEST 1 2021-10-17 17:00:50 Josie [facility] XR CHEST 1 2021-10-17 17:00:50 Josie [facility] XR CHEST 1 2021-10-17 14:17:12 Josie [facility] XR CHEST 1 2021-10-17 14:17:12 Josie [facility] ABG+COOX+NA+K+GLU+CA2+ 2021-10-17 13:25:00 [facility]adi [facility] ABG+COOX+NA+K+GLU+CA2+ 2021-10-17 13:25:00 Shadi [facility] PHOSPHORUS 2021-10-17 10:28:00 [facility] MAGNESIUM 2021-10-17 10:28:00 Josie [facility] BASIC METABOLIC PANEL 2021-10-17 10:28:00 leighann [facility] (NA, K, CL, CO2, GLUCOSE, Medica l Branch BUN, CREATININE, CA) SEDIMENTATION RATE 2021-10-17 10:28:00 Jennifer [facility] CBC WITH DIFF 2021-10-17 10:28:00 Josie [facility] ANTI-NUCLEAR ANTIBODY 2021-10-17 10:28:00 Rodriguez [facility] ANTI-NUCLEAR ANTIBODY 2021-10-17 10:28:00 Rodriguez [facility] TITER [facility] ANTI-DOUBLE STRANDED DNA 2021-10-17 10:28:00 Amadou Putnam [facility] HIV 1/2 AG-AB WITH REFLEX 2021-10-17 10:28:00 Abu AtherAnaya saucedo [facility] ANTI-NUCLEAR 2021-10-17 10:28:00 Jennifer [facility] ANTIBODY-PATHOLOGIST Medical [facility] INTERPRETATION PHOSPHORUS 2021-10-17 10:28:00 Josie [facility] MAGNESIUM 2021-10-17 10:28:00 Josie, [facility] BASIC METABOLIC PANEL 2021-10-17 10:28:00 Josie [facility] (NA, K, CL, CO2, GLUCOSE, Medica l Branch BUN, CREATININE, CA) SEDIMENTATION RATE 2021-10-17 10:28:00 Jennifer [facility] CBC WITH DIFF 2021-10-17 10:28:00 Josie, [facility] ANTI-NUCLEAR ANTIBODY 2021-10-17 10:28:00 Shadi Rodriguez [facility] ANTI-NUCLEAR ANTIBODY 2021-10-17 10:28:00 Rodriguez [facility] ANTI-DOUBLE STRANDED DNA 2021-10-17 10:28:00 Amadou Putnam [facility] HIV 1/2 AG-AB WITH REFLEX 2021-10-17 10:28:00 Abu Atherah, Emran [facility] ANTI-NUCLEAR 2021-10-17 10:28:00 Shadi Rodriguez [facility] ANTIBODY-PATHOLOGIST Medical [facility] INTERPRETATION BLOOD CULTURE SCREEN 2021-10-16 17:40:00 [facility]ad[facility] 2021-10-16 17:40:00 Amadou Putnam [facility] 1 VW 2021-10-16 [facility]:56[facility] 2021-10-16 16:56:36 [facility]PIR[facility] PANEL BY PCR 2021-10-16 14:46:00 Amadou Putnam [facility] RESPIRATORY PANEL BY PCR 2021-10-16 14:46:00 Amadou Putnam [facility] PHOSPHORUS 2021-10-16 10:47:00 Samir Galindo [facility] MAGNESIUM 2021-10-16 10:47:00 AhSamir lawton [facility] BASIC METABOLIC PANEL 2021-10-16 10:47:00 AhSamir lawton [facility] (NA, K, CL, CO2, GLUCOSE, Medica l Branch BUN, CREATININE, CA) CBC WITH DIFF 2021-10-16 10:47:00 Samir Galindo [facility] AC PANEL 20 + LACTIC ACID 2021-10-16 10:47:00 Samir Galindo Un [facility] PHOSPHORUS 2021-10-16 10:47:00 Samir Galindo [facility] MAGNESIUM 2021-10-16 10:47:00 AhSamir lawton [facility] BASIC METABOLIC PANEL 2021-10-16 10:47:00 Samir Galindo [facility] (NA, K, CL, CO2, GLUCOSE, Medica l Branch BUN, CREATININE, CA) CBC WITH DIFF 2021-10-16 10:47:00 Samir Galindo [facility] AC PANEL 20 + LACTIC ACID 2021-10-16 10:47:00 Samir Galindo [facility] C-REACTIVE PROTEIN 2021-10-15 22:38:00 Jennifer [facility] TROPONIN I 2021-10-15 22:38:00 Ilan [facility] BASIC METABOLIC PANEL 2021-10-15 22:38:00 Josie [facility] (NA, K, CL, CO2, GLUCOSE, Medica l Branch BUN, CREATININE, CA) C-REACTIVE PROTEIN 2021-10-15 22:38:[address] [facility] TROPONIN I 2021-10-15 22:38:00 Ilan [facility] BASIC METABOLIC PANEL 2021-10-15 22:38:00 Josie [facility] (NA, K, CL, CO2, GLUCOSE, Medica l Branch BUN, CREATININE, CA) PNEUMOCOCCAL ANTIGEN 2021-10-15 21:49:00 [facility] PNEUMOCOCCAL ANTIGEN 2021-10-15 21:49:00 Josie [facility] LEGIONELLA URINARY 2021-10-15 21:48:00 Josie [facility] ANTIGEN [facility] LEGIONELLA URINARY 2021-10-15 21:48:00 Josie [facility] ANTIGEN [facility] CT ANGIOGRAM CHEST 2021-10-15 19:22:00 Sunday Olivarez [facility] CT ANGIOGRAM CHEST 2021-10-15 19:22:00 Sunday Olivarez [facility] TROPONIN I 2021-10-15 17:29:00 [facility] RAPID INFLUENZA A/B 2021-10-15 17:29:00 Nicol Bourgeois [facility] N-TERMINAL PRO-BNP 2021-10-15 17:29:00 Nicol Bourgeois [facility] PROCALCITONIN 2021-10-15 17:29:[address] [facility] COVID-19 (MOLECULAR 2021-10-15 17:29:00 Vito Bourgeoisdaysi [facility] TESTING Medical Branch NUCLEIC ACID AMPLIFICATION) LAB ONLY COVID 2021-10-15 17:29:00 Bk [facility] Branch TROPONIN I 2021-10-15 17:29:00 Blanca Talavera [facility] RAPID INFLUENZA A/B 2021-10-15 17:29:00 Bk [facility] N-TERMINAL PRO-BNP 2021-10-15 17:29:[address] [facility] PROCALCITONIN 2021-10-15 17:29:00 Bk [facility] COVID-19 (MOLECULAR 2021-10-15 17:29:00 [facility] [place] NUCLEIC ACID AMPLIFICATION) LAB ONLY COVID 2021-10-15 17:29:00 Bk [facility] INTERPRETATION [facility] Branch COVID-19 (ID NOW RAPID 2021-10-15 13:03:00 Josie [facility] TESTING) Medical Branch LAB ONLY COVID 2021-10-15 13:03:00 Josie Samir [facility] Medical Branch COVID-19 (ID NOW RAPID 2021-10-15 13:03:00 Samir Galindo [facility] TESTING) Medical Branch LAB ONLY COVID 2021-10-15 13:03:00 Samir Galindo [facility] Medical Branch XR CHEST 1 VW 2021-10-15 09:46:38 Blanca Talavera [facility] XR CHEST 1 VW 2021-10-15 09:46:38 Blanca Talavera [facility] MAGNESIUM 2021-10-15 08:16:00 Josie Samir [facility] BASIC METABOLIC PANEL 2021-10-15 08:16:00 Josie Samir [facility] (NA, K, CL, CO2, GLUCOSE, Medica l Branch BUN, CREATININE, CA) PROCALCITONIN 2021-10-15 08:16:00 Ilan [facility] MAGNESIUM 2021-10-15 08:16:00 Josie [facility] BASIC METABOLIC PANEL 2021-10-15 08:16:00 Josie [facility] (NA, K, CL, CO2, GLUCOSE, Medica l Branch BUN, CREATININE, CA) PROCALCITONIN 2021-10-15 08:16:00 Ilan [facility] ABG+COOX+NA+K+GLU+CA2+ 2021-10-15 07:24:00 Josie [facility] ABG+COOX+NA+K+GLU+CA2+ 2021-10-15 07:24:00 Josie [facility] TROPONIN I 2021-10-15 07:10:00 Ilan [facility] CBC WITH DIFF 2021-10-15 07:10:00 Josie [facility] TROPONIN I 2021-10-15 07:10:00 Ilan [facility] CBC WITH DIFF 2021-10-15 07:10:00 Josie [facility] MRSA / MSSA SCREEN BY 2021-10-15 07:09:00 Josie [facility] MRSA / MSSA SCREEN BY 2021-10-15 07:09:00 Josie [facility] AUTHORIZATION FOR RELEASE 2021-06-09 05:01:00 Doctor Casandra, [facility] [place] [facility] Encounters Start End Encounter Admission Attending Care Care Encounter Source Date/Time Date/Time Type Type Clinicians Facility Department ID 2021-11-03 2021-11-03 Orders Doctor MARISCAL [id number] Univers 00:00:00 00:00:00 Only Unassigned, BETH [id number] ity of [place] [facility] [id number] José Miguel as [id number] [place] [address] Branch 2021-10-25 2021-10-25 Transition Deborde, SHEARN [id number] Univers 00:00:00 00:00:00 of Care Anyeri DOHERTY [id number] i ty of [place] [id number] [facility] 403 Branch 2021-10-15 2021-10-24 Inpatient U [facility] [id number] Univers 00:23:00 17:53:00 FLASH ity of [facility] 2021-10-15 2021-10-24 Hospital Blanca Talavera [facility] [id number] Univers 00:23:00 17:53:00 Encounter Micheal Galindoiaz HEALTH [id number] ity of Shadi Rodriguez [id number] Imani Rehana Flash JONES [id number] [address] ([facility]) 2021-10-21 2021-10-21 [facility] [id number] Univers 10:00:00 10:45:00 Atherah, HEALTH [id number] i ty of Anaya [place] [id number] [place] [id number] [facility] [address] ([facility]) 2021-06-09 2021-06-09 Orders Doctor LOIDA [id number] Univers 00:00:00 00:00:00 Only Unassigned, BETH [id number] ity of [place] [facility] [id number] José Miguel as [phone] [facility] 009 Branch Results Test Description Test Time Test Comments Results Result Comments Source CYTO BAL 2021-10-24 21:38:57 Test Item Value Reference Range Interpretation Comme nts Case Report (test code = [id number]) Non-Gynecologic Cytolog y ?Case: [id number] ?Authorizing Provider: ?Anaya Kline MD ? ? Collected: ? 10/21/2021 1249 ?Ordering Location: ? ? [facility] ?Received: ?10/21/2021 1257 ? Medicine/Surgery [facility] 7B ?Pathologist: ? Ny, Glenna Valero, ? Specimen: ? ?LUNG, LEFT UPPER LOBE, BRONCHOALVEOLAR LAVAGE ? Final Diagnosis (test code = p5bqxJScFSXoe2maPHFtnWYxLfUrZoSlPrNiKu [facility] [id number]) FuYQbhbfSjLOfjuJosRXCiDZoclyGrCMBvuWBlU7Ei vsfqUJicBC0yTZ1aaPjpcYKivFEvAKKgSnGql1ngt8 46fCBrl6ktZFJSqivuhMw8gQygD20zy1G9HgpmJ4rc MJJnDHlcFAQtTJbdcEGlZNw3GGWesJFhuwTvBbLeAB GsbPBhmPS8MISrAR2iczxwKQjsUIpyWSAgkrK2ZPSr jLOqE8SxMGYwDK6kxptbQIV5HZvlDELbOOQ5NzUeDK Ofh3Qdaxp9ScKjbHHdWWdgyDXpprbhakZzSEZhxmpe RVTyNmZxUGQBQxsaUJYGPFZXMMCZTeQUF6HJQoHGQp [file] IlH0ngGpDcnS4zbHyzFzfutiU8URBvnw28 Final Diagnosis Comment (test code = v1fcmEYsPODdrEL5MyYdHXK ib7ebk1NbiHYpsMFfIX [id number]) fnkFRzyiReas06hFC4yM39EH7bQSKjAvH5KZMvzxN9 Cok0GZLqGFJjeCZwL412y3sbf7exqhQdtEV7PTJkUE TmH9YgGT6rOHWxlNXoD22itFMdBTQ3JWHrQWKktHQc XLGuRIZ0SXMzoCZhV9hgLFRjQT5iipncQQnfTScsZW BioYC2XNDspYObR7UaFORnALemXQIoqpv0ZoWmXb7c pFWxbFrsEQalJPJnZGSrYKrpSKKvDdBhT51vJVZuBH Wax5nsfE2ffBd0QUTbx06loB8pIPEsgRwjqQnqcBIh EQlpzkTvcnClMtX9IZPtojOgsQChWF7pC3SklPekL8 LpTqYYCEGmTGejd1YmJL4iHXS0lTNsYoXzvjI3xJ6w eLLkohFoVQYeIyOlE2RrTK7mVH1hmXemkaQxmPIyIH rttbIhHHFpcImeyTQuTosgHREhO4IvVOXyto2= Clinical Information (test code = 1. Pneumonia / covid / SARS [id number]) Gross Description (test code = q6eynIBuTPGpcJK5EsHwMYYqh9ois9SesNLy cGFyXG [id number]) ovfHEmhqVzni29uQU0vU59CP0eYSHxGrO4DGYwrkM1 Uek5VEAhWCRkjBXaO931w6yss7vmqmDnaPW3WCHpLD WbD8LeTE6vFMAhbVRqU08ljZWmVCP3FKMoIMKrpFEy BIUwHQX9ZYRdgDWuU5hcTOAxXQ7qfnqbTTauRVchJA DufCD8SSUtaORfK6LwVDJeRGbbCPKqrva2TgRnFf4k gMKtdCohFXceVRSbb6ezEQQtdTNlYMR6MYmngUYgQC ApOTHgKPk3SJKgSRzkbMMtOI6cxKxeOvtzwCgrh6Fp kGBtLNexSFPdDDFsFKorFULfN7WCODVsQjFrBas9AN ToFBx6APk2NW9MMyBlYNPuWbq1SQKfSyZdZWt8BSlo PU6YLEK2ZcM0FARzSdueFBTmHaGaCTe9GQLlLOcpwP YzSGDiGYWqYYwbUKgatuTaHZNeWO0ghZvhaXLpjoan jgXnASBppmbqjlBpPZBjmyVHYF1hSZuKQhmgYVeRFx HjSAMLGVLnJU7LKZfyAwNXTrNON3LOXiTZXLVHOFuP OpZETMorSHWkByCgOPstSuFoGtDqMQh6DVBuKdNty4 xqyAFiM5HxnnDcBSEycRAvEVN0ZSTfR2Jgm7EqE5cw JUJtBrk0pYElpdBsGQw2AFMyJbSsz8fndRTtSIYnES RfihLyPASoy5wsVHEqSKqMjWGxb5XyisEfmgLoDRKo yVtbagG3LLSzAg3mEI2xd5JbxPQhyyFyAIELFAJsex iku4gwp7Kjd0EewX0lSEkmAaNoHcuqHmQtODmhSCVe I4CkO8DlejD9q0ktdAbww9PyyDGxTM1aeALveW== Disclaimer (test code = 3154528436) x1syrXAwBKQwp9mwTHPezGApBjAl MzNcZnRuYmpcdW BeWUihyvFuUEysk8JwU6VpTnPaZZkjtuSvXBRzXsjm bacsNQRzHNB8yyDrZHFrPQvcKVCuPCtbXg7tlUMplE weXeUmWSKax1mmnjLDRQzsSsFsX690XYTxDDgpd0hf q4JzHSWhoGLiv9T0SXFCqdjurYp9vGizC95gh6G8Ml edU4rqGOPgQOVjH5RrCN7lZBEuOxk1HDB2ETX6FHDz HSSgW6PpZW7bNVCwqHIjOOw6s8mnpCfbUMYdARQ2h8 kkSUqeozUfQL1ihg9ivKp5a3eglnKoIUQhXPGtlUIW OBJqN0HvkSfaQj6jqKa4aWqtCvmtFSE4Eks1WA2tvx 77ufv8fAuzVBXslhevJdW8PJqsZNGbprfkKMr6QVdz SLScdVI9VTFflMArS1NaCHGjNW5cpux5XDT3YHacFH OzRyM0ZSToxRNcBBVvnBedXZlwp133AFY2UeXoXG1f W3Whq6T7jB6hjPVtKXSizNZfWjTzQCOkmz8wkTTqON loh3OuMHA1spT1wAXoeJApKIZgZR29Fkmou2UgMeov w9UmY90ybYJ8DXwyw3onPA8dQhX5qpFdIKjlm0rtiZ 8aKzB1MKgfGR3gKP9gTFIhkM9cdljbRFGfJyZpfkpq CLVapKrbkqMuQk8bsGwnPFF5FVnrZ7xllO9jJeE7CC gbS9xjmA9zXEh8TEuheWU0RRDgoN5wKY4lxpjts8ts DVupHShkQWRntbZ4yrR1JTZsaZVeJ8SrcO2wZUXcVU 1hziybt8aqCVH8HKxvGFLvFRB9QjEgTWOhn0Gkmih9 TySir4GtbINkIBviE07el045ZSVancYiF0guwQLirl mqiLYzovkxEVxdeqB8NEXoseDpn4IqMQKyKSF6CFzx PWbzdWBhUNVhxPbbx1kaQ1LqiWOpCCGiVSnpMOJjDO ZzMjBcbGFuZzEwMzNcaGljaFxmMVxkYmNoXGYxXGxv [file] TbREisLYE7fF== Embedded Images (test code = 6936368225) [facility] [id number] 20:07:20 Test Item Value Reference Range Interpretation Comments SHIRA (test code = Negative Negative 3820273330) LUCILLE (test code = LUCILLE) Negative - [...] separately. Lab Interpretation (test Normal code = 47747-3) [facility] (NA, K, CL, CO2, GLUCOSE, BUN, CREATININE, CA)2021-10-24 13:05:02 Test Item Value Reference Range Interpretation Comments NA (test code = 134 mmol/L 135-145 L 2375684531) K (test code = 4.5 mmol/L 3.5-5.0 1307917168) CL (test code = 99 mmol/L 98-108 2901237579) CO2 TOTAL (test code = 30 mmol/L 23-31 2216782662) AGAP (test code = 2-16 2235904407) BUN (test code = 23 mg/dL 7-23 1177815557) GLUCOSE (test code = 118 mg/dL 70-110 H 1523602394) CREATININE (test code = 0.71 mg/dL 0.50-1.04 2254847246) CALCIUM (test code = 8.2 mg/dL 8.6-10.6 L 3195130945) eGFR (test code = mL/min/1.73m2 7354304330) LUCILLE (test code = LUCILLE) Association of [...] tests). Lab Interpretation Abnormal (test code = 03643-1) [facility] METABOLIC PANEL (NA, K, CL, CO2, GLUCOSE, BUN, CREATININE, CA)2021-10-24 13:05:02 Test Item Value Reference Range Interpretation Comments NA (test code = 134 mmol/L 135-145 L 3989399684) K (test code = 4.5 mmol/L 3.5-5.0 1077056770) CL (test code = 99 mmol/L 98-108 8444533165) CO2 TOTAL (test code = 30 mmol/L 23-31 6379499723) AGAP (test code = 2-16 1218546755) BUN (test code = 23 mg/dL 7-23 4662788090) GLUCOSE (test code = 118 mg/dL 70-110 H 7163436843) CREATININE (test code = 0.71 mg/dL 0.50-1.04 5178738508) CALCIUM (test code = 8.2 mg/dL 8.6-10.6 L 3961176378) eGFR (test code = mL/min/1.73m2 1555541053) LUCILLE (test code = LUCILLE) Association of [...] tests). Lab Interpretation Abnormal (test code = 50024-9) [facility] WITHOUT [id number] 12:51:39 Test Item Value Reference Range Interpretation Comments WBC (test code = 6690-2) See_Comment H [A utomated message] The system [employer] generated this result transmit britney reference range : 4.30 - 11.10 10*3/?L. The reference range was not used to interpret this result as normal/abnormal . RBC (test code = 789-8) See_Comment [Au tomated message] The system [employer] generated this result transmit britney reference range [...] See_Comment H [Au tomated message] The system [employer] generated this result transmit britney reference range : 166 - 358 10*3/?L. The reference range was not used to interpret this result as normal/abnormal . MPV (test code = 10.1 fL 9.5-12.9 32383-7) RDW-CV (test code = 14.2 % 12.0-15.5 788-0) RDW-SD (test code = 43.8 fL 39.0-49.9 66418-0) NRBC x10^3 (test code = See_Comment [Au tomated message] 9844862258) The system [employer] generated this result transmit britney reference range : 10*3/?L. The reference range was not used to interpret this result as normal/abnormal . NRBC/100 WBC (test code See_Comment [Au tomated message] = 9103641743) The system [facility] generated this result transmit britney reference range : 0.0 - 10.0 /100 WBC s. The reference r nicholas was not used to interpret this result as normal/abnormal . IPF % (test code = 8415935376) Lab Interpretation (test Abnormal code = 07424-3) [facility] WITHOUT [id number] 12:51:39 Test Item Value Reference Range Interpretation Comments WBC (test code = 6690-2) See_Comment H [A utomated message] The system [employer] generated this result transmit britney reference range : 4.30 - 11.10 10*3/?L. The reference range was not used to interpret this result as normal/abnormal . RBC (test code = 789-8) See_Comment [Au tomated message] The system [employer] generated this result transmit britney reference range [...] See_Comment H [Au tomated message] The system [employer] generated this result transmit britney reference range : 166 - 358 10*3/?L. The reference range was not used to interpret this result as normal/abnormal . MPV (test code = 10.1 fL 9.5-12.9 57864-8) RDW-CV (test code = 14.2 % 12.0-15.5 788-0) RDW-SD (test code = 43.8 fL 39.0-49.9 97926-3) NRBC x10^3 (test code = See_Comment [Au tomated message] 1472304844) The system [employer] generated this result transmit britney reference range : 10*3/?L. The reference range was not used to interpret this result as normal/abnormal . NRBC/100 WBC (test code See_Comment [Au tomated message] = 0772121624) The system [employer] generated this result transmit britney reference range : 0.0 - 10.0 /100 WBC s. The reference r nicholas was not used to interpret this result as normal/abnormal . IPF % (test code = 8068501584) Lab Interpretation (test Abnormal code = 75537-3) [facility] TUBERCULOSIS COMPLEX PCR 2021-10-23 16:23:29 Test Item Value Reference Range Interpretation Comments Mycobacterium Negative Negative tuberculosis DNA (test code = 13576-7) LUCILLE (test code = LUCILLE) Method performance specifications have not been established for specimens other than SPUTUM. Results for other tested specimen types should be interpreted based on clinical context. Lab Interpretation Normal (test code = 22698-3) [facility]MY[facility] TUBERCULOSIS COMPLEX PCR 2021-10-23 16:23:29 Test Item Value Reference Range Interpretation Comments Mycobacterium Negative Negative tuberculosis DNA (test code = 82239-8) LUCILLE (test code = LUCILLE) Method performance specifications have not been established for specimens other than SPUTUM. Results for other tested specimen types should be interpreted based on clinical context. Lab Interpretation Normal (test code = 07193-9) [facility]RES[facility]AT[facility] PANEL BY [id number] 20:36:40 Test Item Value Reference Range Interpretation Comments Adenovirus (test code = Negative Negative 63456-6) Coronavirus HKU1 (test Negative Negative code = 58186-8) Coronavirus NL63 (test Negative Negative code = 27948-9) Coronavirus 229E (test Negative Negative code = 51106-1) Coronavirus OC43 (test Negative Negative code = 86342-6) Human Metapneumovirus Negative Negative (test code = 06432-3) Human Negative Negative Rhinovirus/Enterovirus (test code = 05602-9) Influenza A (test code = Negative Negative 65015-4) Influenza B (test code = Negative Negative 46240-0) Parainfluenza Virus 1 Negative Negative (test code = 51670-8) Parainfluenza Virus 2 Negative Negative (test code = 53387-7) Parainfluenza Virus 3 Negative Negative (test code = 82440-6) Parainfluenza Virus 4 Negative Negative (test code = 81917-7) Respiratory Syncytial Negative Negative Virus (test code = 82863-5) Bordetella parapertussis Negative Negative (test code = 11604-7) Bordetella pertussis Negative Negative (test code = 18565-5) Chlamydia pneumoniae Negative Negative (test code = 58889-0) Mycoplasma pneumoniae Negative Negative (test code = 44669-7) LUCILLE (test code = LUCILLE) Negative:A negative result does not rule-out infection. ?This assay does not test for all potential infectious agents. ? Positive:A positive test result does not necessarily indicate the presence of viable organism. ? Lab Interpretation (test Normal code = 49423-5) [facility] PANEL BY [id number] 20:36:40 Test Item Value Reference Range Interpretation Comments Adenovirus (test code = Negative Negative 59969-2) Coronavirus HKU1 (test Negative Negative code = 72067-5) Coronavirus NL63 (test Negative Negative code = 81200-5) Coronavirus 229E (test Negative Negative code = 03373-7) Coronavirus OC43 (test Negative Negative code = 55378-3) Human Metapneumovirus Negative Negative (test code = 83173-2) Human Negative Negative Rhinovirus/Enterovirus (test code = 83667-6) Influenza A (test code = Negative Negative 79931-9) Influenza B (test code = Negative Negative 08173-4) Parainfluenza Virus 1 Negative Negative (test code = 02108-2) Parainfluenza Virus 2 Negative Negative (test code = 25349-0) Parainfluenza Virus 3 Negative Negative (test code = 20059-4) Parainfluenza Virus 4 Negative Negative (test code = 48957-5) Respiratory Syncytial Negative Negative Virus (test code = 49352-0) Bordetella parapertussis Negative Negative (test code = 43961-8) Bordetella pertussis Negative Negative (test code = 09109-9) Chlamydia pneumoniae Negative Negative (test code = 11613-4) Mycoplasma pneumoniae Negative Negative (test code = 70235-5) LUCILLE (test code = LUCILLE) Negative:A negative result does not rule-out infection. ?This assay does not test for all potential infectious agents. ? Positive:A positive test result does not necessarily indicate the presence of viable organism. ? Lab Interpretation (test Normal code = 94615-7) [facility]ANT[facility]CLE[facility]-PATHOLOGIST [id number] 19:52:54ANA - Pathologist InterpretationANA HEp-2 IIFA Pathologist [...] female gender. Clinical correlation is recommended. ? (https://pubmed.ncbi.nlm.nih.gov/22580998/) ? If the patient's clinical cond ition [...] indicated. Juanis Mata MD ?10/22/2021 ?1:52 PM [facility] SERVICESMethod[facility] HospitalANTI-NUCLEAR ANTIBODY- PATHOLOGIST [id number] 19:52:54ANA - Pathologist InterpretationANA HEp-2 IIFA Pathologist [...] female gender. Clinical correlation is recommended. ? (https://pubmed.ncbi.nlm.nih.gov/38310040/) ? If the patient's clinical cond ition [...] indicated. Juanis Mata MD ?10/22/2021 ?1:52 PM [facility] WITH [id number] 11:43:17 Test Item Value Reference Range Interpretation Comments WBC (test code = See_Comment H [Automated 6690-2) message] The system which generated this result transmit britnye reference range : 4.30 - 11.10 10*3/?L. [...] RDW-SD (test code = 46.8 fL 39.0-49.9 22440-8) RDW-CV (test code = 14.6 % 12.0-15.5 788-0) PLT (test code = See_Comment H [Automated 777-3) message] The system which generated this result transmit britney reference range : 166 - 358 10*3/ ?L. The reference range was not u sed to interpret th is result as normal/abnormal . MPV (test code = 10.2 fL 9.5-12.9 38213-2) NRBC/100 WBC (test See_Comment [Automat ed code = 4387783412) message] The system which generated this result transmit britney reference range : 0.0 - 10.0 /100 WBCs. The reference range was not used to interpret this result as normal/abnormal . NRBC x10^3 (test code <0.01 See_Comment [Auto mated = 2513141843) message] The system which generated this result transmit britney reference range : 10*3/?L. The reference range was not used to interpret this result as normal/abnormal . GRAN MAT (NEUT) % 93.6 % (test code = 770-8) IMM GRAN % (test code 2.10 % = 2755990613) LYMPH % (test code = 2.8 % 736-9) MONO % (test code = 1.4 % 5905-5) EOS % (test code = 0.0 % 713-8) BASO % (test code = 0.1 % 706-2) GRAN MAT x10^3(ANC) 17.50 10*3/uL 1.88-7.09 H (test code = 7982584020) IMM GRAN x10^3 (test 0.40 10*3/uL 0.00-0.06 H code = 1856614840) LYMPH x10^3 (test code 0.53 10*3/uL 1.32-3.29 L = 731-0) MONO x10^3 (test code 0.26 10*3/uL 0.33-0.92 L = 742-7) EOS x10^3 (test code = <0.03 0.03-0.39 L 711-2) BASO x10^3 (test code <0.03 0.01-0.07 = 704-7) TOXIC CHANGES (test Present A code = 803-7) Lab Interpretation Abnormal (test code = 52482-3) [facility] WITH [id number] 11:43:17 Test Item Value Reference Range Interpretation Comments WBC (test code = See_Comment H [Automated 7090-2) message] The system which generated this result [...] RDW-SD (test code = 46.8 fL 39.0-49.9 33956-3) RDW-CV (test code = 14.6 % 12.0-15.5 788-0) PLT (test code = See_Comment H [Automated 777-3) message] The system which generated this result transmit britney reference range : 166 - 358 10*3/ ?L. The reference range was not u sed to interpret th is result as normal/abnormal . MPV (test code = 10.2 fL 9.5-12.9 61342-2) NRBC/100 WBC (test See_Comment [Automat ed code = 9646164968) message] The system which generated this result transmit britney reference range : 0.0 - 10.0 /100 WBCs. The reference range was not used to interpret this result as normal/abnormal . NRBC x10^3 (test code <0.01 See_Comment [Auto mated = 2903476195) message] The system which generated this result transmit britney reference range : 10*3/?L. The reference range was not used to interpret this result as normal/abnormal . GRAN MAT (NEUT) % 93.6 % (test code = 770-8) IMM GRAN % (test code 2.10 % = 0027788278) LYMPH % (test code = 2.8 % 736-9) MONO % (test code = 1.4 % 5905-5) EOS % (test code = 0.0 % 713-8) BASO % (test code = 0.1 % 706-2) GRAN MAT x10^3(ANC) 17.50 10*3/uL 1.88-7.09 H (test code = 4419458186) IMM GRAN x10^3 (test 0.40 10*3/uL 0.00-0.06 H code = 0045096508) LYMPH x10^3 (test code 0.53 10*3/uL 1.32-3.29 L = 731-0) MONO x10^3 (test code 0.26 10*3/uL 0.33-0.92 L = 742-7) EOS x10^3 (test code = <0.03 0.03-0.39 L 711-2) BASO x10^3 (test code <0.03 0.01-0.07 = 704-7) TOXIC CHANGES (test Present A code = 803-7) Lab Interpretation Abnormal (test code = 21503-6) [facility] METABOLIC PANEL (NA, K, CL, CO2, GLUCOSE, BUN, CREATININE, CA)2021-10-22 11:20:32 Test Item Value Reference Range Interpretation Comments NA (test code = 136 mmol/L 135-145 8133662610) K (test code = 4.3 mmol/L 3.5-5.0 7078367515) CL (test code = 103 mmol/L 98-108 8090875285) CO2 TOTAL (test code = 26 mmol/L 23-31 5069928142) AGAP (test code = 2-16 5170801905) BUN (test code = 18 mg/dL 7-23 2163409309) GLUCOSE (test code = 185 mg/dL 70-110 H 9950636617) CREATININE (test code = 0.69 mg/dL 0.50-1.04 6013072985) CALCIUM (test code = 7.9 mg/dL 8.6-10.6 L 1666104333) eGFR (test code = mL/min/1.73m2 9351319526) LUCILLE (test code = LUCILLE) Association of [...] tests). Lab Interpretation Abnormal (test code = 66064-0) [facility]MAG[facility]UM2022-02-19 11:20:32 Test Item Value Reference Range Interpretation Comments MAGNESIUM (test code = 6443843525) 2.2 mg/dL 1.7-2.4 Lab Interpretation (test code = Normal 76016-3) [facility] METABOLIC PANEL (NA, K, CL, CO2, GLUCOSE, BUN, CREATININE, CA)2021-10-22 11:20:32 Test Item Value Reference Range Interpretation Comments NA (test code = 136 mmol/L 135-145 7517906772) K (test code = 4.3 mmol/L 3.5-5.0 5875796638) CL (test code = 103 mmol/L 98-108 4235367514) CO2 TOTAL (test code = 26 mmol/L 23-31 7186877255) AGAP (test code = 2-16 9994120155) BUN (test code = 18 mg/dL 7-23 8877224025) GLUCOSE (test code = 185 mg/dL 70-110 H 3100293659) CREATININE (test code = 0.69 mg/dL 0.50-1.04 4954133788) CALCIUM (test code = 7.9 mg/dL 8.6-10.6 L 2926571579) eGFR (test code = mL/min/1.73m2 5882388394) LUCILLE (test code = LUCILLE) Association of [...] tests). Lab Interpretation Abnormal (test code = 60944-2) [facility]2022-[facility]-19 11:20:32 Test Item Value Reference Range Interpretation Comments MAGNESIUM (test code = 8502838614) 2.2 mg/dL 1.7-2.4 Lab Interpretation (test code = Normal 13571-5) [facility]BL[facility] CULTURE [id number] 23:01:06 Test Item Value Reference Range Interpretation Comments Blood Culture-Aerobic No organisms No growth Previo us (test code = 92928-3) isolated prelim inary verified result was Culture In Progress on 10/16/2021 at 20 02 CSTPrevious preliminary verified result was No growth a t 24 hours on 10/17/2021 at 17 01 CSTPrevious preliminary verified result was No growth a t 48 hours on 10/18/2021 at 17 01 CSTPrevious preliminary verified result was No growth a t 72 hours on 10/19/2021 at 17 02 [employer] Blood No organisms No growth Previous Culture-Anaerobic isolated preliminar y (test code = 78687-6) verifi ed result was Culture In Progress on 10/16/2021 at 20 02 CSTPrevious preliminary verified result was No growth a t 24 hours on 10/17/2021 at 17 01 CSTPrevious preliminary verified result was No growth a t 48 hours on 10/18/2021 at 17 01 CSTPrevious preliminary verified result was No growth a t 72 hours on 10/19/2021 at 17 02 [employer] Lab Interpretation Normal (test code = 94571-2) [facility] CULTURE [id number] 23:01:06 Test Item Value Reference Range Interpretation Comments Blood Culture-Aerobic No organisms No growth Previo us (test code = 84135-2) isolated prelim inary verified result was Culture In Progress on 10/16/2021 at 20 02 CSTPrevious preliminary verified result was No growth a t 24 hours on 10/17/2021 at 17 01 CSTPrevious preliminary verified result was No growth a t 48 hours on 10/18/2021 at 17 02 CSTPrevious preliminary verified result was No growth a t 72 hours on 10/19/2021 at 17 02 P[employer] Blood No organisms No growth Previous Culture-Anaerobic isolated preliminar y (test code = 94302-9) verifi ed result was Culture In Progress on 10/16/2021 at 20 02 CSTPrevious preliminary verified result was No growth a t 24 hours on 10/17/2021 at 17 01 CSTPrevious preliminary verified result was No growth a t 48 hours on 10/18/2021 at 17 02 CSTPrevious preliminary verified result was No growth a t 72 hours on 10/19/2021 at 17 02 [employer] Lab Interpretation Normal (test code = 51705-4) [facility] CULTURE [id number] 23:01:06 Test Item Value Reference Range Interpretation Comments Blood Culture-Aerobic No organisms No growth Previo us (test code = 36038-6) isolated prelim inary verified result was Culture In Progress on 10/16/2021 at 20 02 CSTPrevious preliminary verified result was No growth a t 24 hours on 10/17/2021 at 17 01 CSTPrevious preliminary verified result was No growth a t 48 hours on 10/18/2021 at 17 01 CSTPrevious preliminary verified result was No growth a t 72 hours on 10/19/2021 at 17 02 P[employer] Blood No organisms No growth Previous Culture-Anaerobic isolated preliminar y (test code = 16922-1) verifi ed result was Culture In Progress on 10/16/2021 at 20 02 CSTPrevious preliminary verified result was No growth a t 24 hours on 10/17/2021 at 17 01 CSTPrevious preliminary verified result was No growth a t 48 hours on 10/18/2021 at 17 01 CSTPrevious preliminary verified result was No growth a t 72 hours on 10/19/2021 at 17 02 [employer] Lab Interpretation Normal (test code = 60221-4) [facility] [id number] 23:01:06 Test Item Value Reference Range Interpretation Comments Blood Culture-Aerobic No organisms No growth Previo us (test code = 24501-3) isolated prelim inary verified result was Culture In Progress on 10/16/2021 at 20 02 CSTPrevious preliminary verified result was No growth a t 24 hours on 10/17/2021 at 17 01 CSTPrevious preliminary verified result was No growth a t 48 hours on 10/18/2021 at 17 02 CSTPrevious preliminary verified result was No growth a t 72 hours on 10/19/2021 at 17 02 P[employer] Blood No organisms No growth Previous Culture-Anaerobic isolated preliminar y (test code = 21995-0) verifi ed result was Culture In Progress on 10/16/2021 at 20 02 CSTPrevious preliminary verified result was No growth a t 24 hours on 10/17/2021 at 17 01 CSTPrevious preliminary verified result was No growth a t 48 hours on 10/18/2021 at 17 02 CSTPrevious preliminary verified result was No growth a t 72 hours on 10/19/2021 at 17 02 [employer] Lab Interpretation Normal (test code = 45049-9) [facility] + LACTIC [id number] 20:42:21 Test Item Value Reference Range Interpretation Comments PH (test code = 2) 7.35-7.45 PCO2 (test code = See_Comment [Automat ed 0216399622) message] The sy stem which generated this result transmitted reference range : 35 - 45 mmHg. The reference range was not used to interpret this result as normal/abnormal . PO2 (test code = See_Comment H [Automated 3678223872) message] The sy stem which generated this result transmitted reference range : 80 - 100 mmHg. The reference range was not used to interpret this result as normal/abnormal . HCO3 (test code = See_Comment [Automate d 8442995601) message] The sy stem which generated this result transmitted reference range : 22 - 26 mEq/L. The reference range was not used to interpret this result as normal/abnormal . BE (test code = See_Comment [Automated 8832577340) message] The sy stem which generated this result transmitted reference range : -3.0 - 3.0 mEq/ L. The reference r nicholas was not used to interpret this result as normal/abnormal . THB (test code = 12.1 g/dL 12.0-16.0 7465490734) %O2HB (test code = 99.5 % 94.0-99.0 H 6765335705) %COHB ART (test code = 0.1 % 0.0-1.5 8968513205) %METHB ART (test code = 0.1 % 0.4-1.5 L 8356567490) VOL%O2 ART (test code = 17.8 % 15.0-23.0 5359157887) NA (test code = 135 mmol/L 135-145 1829868469) K+ (test code = 4.3 mmol/L 3.5-5.0 5222894185) AC CA IONZ (test code = 4.50 mg/dL 4.50-5.30 4779874939) GLUCOSE (test code = 108 mg/dL 70-110 9905631393) LACTIC ACID (test code 2.19 mmol/L 0.50-2.20 = 3565479983) Lab Interpretation Abnormal (test code = 34133-9) [facility] LACTIC [id number] 20:42:21 Test Item Value Reference Range Interpretation Comments PH (test code = 2) 7.35-7.45 PCO2 (test code = See_Comment [Automat ed 4259528434) message] The sy stem which generated this result transmitted reference range : 35 - 45 mmHg. The reference range was not used to interpret this result as normal/abnormal . PO2 (test code = See_Comment H [Automated 8223811821) message] The sy stem which generated this result transmitted reference range : 80 - 100 mmHg. The reference range was not used to interpret this result as normal/abnormal . HCO3 (test code = See_Comment [Automate d 4067001653) message] The sy stem which generated this result transmitted reference range : 22 - 26 mEq/L. The reference range was not used to interpret this result as normal/abnormal . BE (test code = See_Comment [Automated 4937462593) message] The sy stem which generated this result transmitted reference range : -3.0 - 3.0 mEq/ L. The reference r nicholas was not used to interpret this result as normal/abnormal . THB (test code = 12.1 g/dL 12.0-16.0 3627122615) %O2HB (test code = 99.5 % 94.0-99.0 H 7333724237) %COHB ART (test code = 0.1 % 0.0-1.5 9148635984) %METHB ART (test code = 0.1 % 0.4-1.5 L 2724411992) VOL%O2 ART (test code = 17.8 % 15.0-23.0 9537552884) NA (test code = 135 mmol/L 135-145 0577394511) K+ (test code = 4.3 mmol/L 3.5-5.0 5531806420) AC CA IONZ (test code = 4.50 mg/dL 4.50-5.30 4130073561) GLUCOSE (test code = 108 mg/dL 70-110 0329714303) LACTIC ACID (test code 2.19 mmol/L 0.50-2.20 = 6441088491) Lab Interpretation Abnormal (test code = 26779-4) [facility] [id number] 20:19:53 Test Item Value Reference Range Interpretation Comments MELLY (test code = 28 U/L 9-67 Performed B y: ARUP 2742-5) [address] [place] [address] [id number] Director: Korin Barillas MD [facility] [id number] 20:19:53 Test Item Value Reference Range Interpretation Comments MELLY (test code = 28 U/L 9-67 Performed B y: ARUP 2742-5) [address] [place] [address] [id number] Director: Korin Barillas MD [facility] Hospital[facility]ODY FLUID MANUAL [id number] 19:44:45 Test Item Value Reference Range Interpretation Comments BF SEGS% (test code = 41676-3) 2 % BF LYMPHS% (test code = 75297-5) 12 % BF MACROPHAGE% (test code = 90055-9) 86 % BF #CELLS CNTD (test code = 5800077597) cells/uL [facility] FLUID MANUAL [id number] 19:44:45 Test Item Value Reference Range Interpretation Comments BF SEGS% (test code = 73212-6) 2 % BF LYMPHS% (test code = 61738-0) 12 % BF MACROPHAGE% (test code = 82149-0) 86 % BF #CELLS CNTD (test code = 8088471722) cells/uL [facility] FLUID DIRECT [id number] 19:44:30 Test Item Value Reference Range Interpretation Comments BF COLOR Clear (test code = 9225740500) BF WBC Count See_Comment [Automated (test code = message] The sy stem 9805089168) which generated this result transmitted reference range : /?L. The refere nce range was not u sed to interpret th is result as normal/abnormal . BF RBC Count <3000 See_Comment [Automated (test code = message] The sy stem 0740579491) which generated this result transmitted reference range : /?L. The refere nce range was not u sed to interpret th is result as normal/abnormal . LUCILLE (test The reference range code = LUCILLE) and other method performance specifications have not been established for this body fluid. ?The test results must be integrated into the clinical context for interpretation. [facility] [id number] 19:44:30 Test Item Value Reference Range Interpretation Comments BF COLOR Clear (test code = 2455451380) BF WBC Count See_Comment [Automated (test code = message] The sy stem 3674714239) which generated this result transmitted reference range : /?L. The refere nce range was not u sed to interpret th is result as normal/abnormal . BF RBC Count <3000 See_Comment [Automated (test code = message] The sy stem 7585278075) which generated this result transmitted reference range : /?L. The refere nce range was not u sed to interpret th is result as normal/abnormal . LUCILLE (test The reference range code = LUCILLE) and other method performance specifications have not been established for this body fluid. ?The test results must be integrated into the clinical context for interpretation. [facility] WITH [id number] 19:27:30 Test Item Value Reference Range Interpretation [...] RDW-SD (test code = 45.8 fL 39.0-49.9 26093-3) RDW-CV (test code = 14.4 % 12.0-15.5 788-0) PLT (test code = See_Comment H [Automated 777-3) message] The system which generated this result transmit britney reference range : 166 - 358 10*3/ ?L. The reference range was not u sed to interpret th is result as normal/abnormal . MPV (test code = 10.4 fL 9.5-12.9 93275-6) NRBC/100 WBC (test See_Comment [Automat ed code = 8362643166) message] The system which generated this result transmit britney reference range : 0.0 - 10.0 /100 WBCs. The reference range was not used to interpret this result as normal/abnormal . NRBC x10^3 (test code See_Comment [Auto mated = 3023603832) message] The system which generated this result transmit britney reference range : 10*3/?L. The reference range was not used to interpret this result as normal/abnormal . SEG % (test code = 84 % 33-76 H 65230-1) BAND % (test code = 8 % 0-1 H 07819-5) MYELO % (test code = 2 % See_Comment H [Autom ated 74204-7) message] The system which generated this result transmit britney reference range : <=0. The refere nce range was not u sed to interpret th is result as normal/abnormal . LYMPH % (test code = 4 % 14-54 L 81756-4) MONO % (test code = 2 % 0-4 44557-4) ANC (test code = 21.16 10*3/uL 1.88-7.09 H 753-4) Lab Interpretation Abnormal (test code = 66190-9) [facility] WITH [id number] 19:27:30 Test Item Value Reference Range Interpretation [...] RDW-SD (test code = 45.8 fL 39.0-49.9 38789-4) RDW-CV (test code = 14.4 % 12.0-15.5 788-0) PLT (test code = See_Comment H [Automated 777-3) message] The system which generated this result transmit britney reference range : 166 - 358 10*3/ ?L. The reference range was not u sed to interpret th is result as normal/abnormal . MPV (test code = 10.4 fL 9.5-12.9 90952-2) NRBC/100 WBC (test See_Comment [Automat ed code = 8007749452) message] The system which generated this result transmit britney reference range : 0.0 - 10.0 /100 WBCs. The reference range was not used to interpret this result as normal/abnormal . NRBC x10^3 (test code See_Comment [Auto mated = 0648018368) message] The system which generated this result transmit britney reference range : 10*3/?L. The reference range was not used to interpret this result as normal/abnormal . SEG % (test code = 84 % 33-76 H 89498-7) BAND % (test code = 8 % 0-1 H 87715-4) MYELO % (test code = 2 % See_Comment H [Autom ated 62618-6) message] The system which generated this result transmit britney reference range : <=0. The refere nce range was not u sed to interpret th is result as normal/abnormal . LYMPH % (test code = 4 % 14-54 L 49484-8) MONO % (test code = 2 % 0-4 84356-2) ANC (test code = 21.16 10*3/uL 1.88-7.09 H 753-4) Lab Interpretation Abnormal (test code = 39675-1) [facility] METABOLIC PANEL (NA, K, CL, CO2, GLUCOSE, BUN, CREATININE, CA)2021-10-21 19:20:26 Test Item Value Reference Range Interpretation Comments NA (test code = 125 mmol/L 135-145 L 0369166808) K (test code = 4.4 mmol/L 3.5-5.0 Slight 2644458272) hemolysis CL (test code = 98 mmol/L 98-108 5044096329) CO2 TOTAL (test code 19 mmol/L 23-31 L = 5509306932) AGAP (test code = 2-16 1946063687) BUN (test code = 21 mg/dL 7-23 Slight 3211208180) hemolysis GLUCOSE (test code = 155 mg/dL 70-110 H 3459956351) CREATININE (test code 0.63 mg/dL 0.50-1.04 = 6022555644) CALCIUM (test code = 6.9 mg/dL 8.6-10.6 L 5002984651) eGFR (test code = mL/min/1.73m2 0320864932) LUCILLE (test code = LUCILLE) Association of [...] tests). Lab Interpretation Abnormal (test code = 14488-7) [facility] METABOLIC PANEL (NA, K, CL, CO2, GLUCOSE, BUN, CREATININE, CA)2021-10-21 19:20:26 Test Item Value Reference Range Interpretation Comments NA (test code = 125 mmol/L 135-145 L 1086440762) K (test code = 4.4 mmol/L 3.5-5.0 Slight 9958539836) hemolysis CL (test code = 98 mmol/L 98-108 8623583734) CO2 TOTAL (test code 19 mmol/L 23-31 L = 5748588384) AGAP (test code = 2-16 2727444297) BUN (test code = 21 mg/dL 7-23 Slight 9534345289) hemolysis GLUCOSE (test code = 155 mg/dL 70-110 H 8412268521) CREATININE (test code 0.63 mg/dL 0.50-1.04 = 2392185546) CALCIUM (test code = 6.9 mg/dL 8.6-10.6 L 3647045706) eGFR (test code = mL/min/1.73m2 5058551302) LUCILLE (test code = LUCILLE) Association of [...] tests). Lab Interpretation Abnormal (test code = 31822-6) [facility] 19:12:03 Test Item Value Reference Range Interpretation Comments Fibrinogen (test code = 5130403692) 585 mg/dL 167-453 H Lab Interpretation (test code = Abnormal 01909-8) [facility] / [id number] 19:12:03 Test Item Value Reference Range Interpretation Comments PROTIME PATIENT (test See_Comment H [Auto mated message] code = 5964-2) The system [employer] generated this result transmitted ref erence range: 10.1 - 1 2.6 Seconds. The reference range was not used to int erpret this result as normal/abnormal . INR (test code = 6301-6) Nor mal INR <1.1; Warfarin Therap eutic range 2.0 to 3. 0 or 2.5 to 3.5, dep ending upon the indica tions. Lab Interpretation (test Abnormal code = 39044-4) [facility] Test Item Value Reference Range Interpretation Comments Fibrinogen (test code = 3292237160) 585 mg/dL 167-453 H Lab Interpretation (test code = Abnormal 85425-9) [facility] / [id number] 19:12:03 Test Item Value Reference Range Interpretation Comments PROTIME PATIENT (test See_Comment H [Auto mated message] code = 5964-2) The system [employer] generated this result transmitted ref erence range: 10.1 - 1 2.6 Seconds. The reference range was not used to int erpret this result as normal/abnormal . INR (test code = 6301-6) Nor mal INR <1.1; Warfarin Therap eutic range 2.0 to 3. 0 or 2.5 to 3.5, dep ending upon the indica tions. Lab Interpretation (test Abnormal code = 89320-2) [facility] [id number] 04:54:18 Test Item Value Reference Range Interpretation Comments URIC ACID (test code = 2990983047) 4.3 mg/dL 2.9-6.0 Lab Interpretation (test code = Normal 38152-9) [facility] [id number] 04:54:18 Test Item Value Reference Range Interpretation Comments URIC ACID (test code = 0593814980) 4.3 mg/dL 2.9-6.0 Lab Interpretation (test code = Normal 50856-6) [facility] (TTE)2021-10-20 20:54:06 Test Item Value Reference Range Interpretation Comments EF(Teich) (test code = 63.80 % 9698257420) LVIDD (test code = 4.40 cm 8604949591) LVIDS (test code = 2.90 cm 1684159483) IVS (test code = 0.86 cm 7326158961) LVPWD (test code = 0.86 cm 5699495118) LVOT diameter (test code 2.00 cm = 1542434227) FS (test code = 35 % 0588569543) LA size (test code = 3.4 cm 9471928229) LAV(MOD-sp4) (test code = 41.40 mL 3239790780) Ao root annulus (test 2.44 cm code = 5481203972) Ao root diam (test code = 2.44 cm 3542107800) Aortic root (test code = 2.44 cm 1516796468) PW (test code = 0.86 cm 0.6-1.1 4865012678) EF - 2D (test code = 63.80 % 86048623) Interventricular Septum 0.86 cm Diastolic Thickness by 2D (test code = 0233105) Radiology Study observation (narrative) (test code = 97471-1) LUCILLE (test code = LUCILLE) ?Left?Ventricle: Left ventricle is normal in size and function. Normal wall thickness. Normal systolic function with a visually estimated EF of 55 - 60%. ?Aortic?Valve: Aortic valve is normal in structure and function. ?Mitral?Valve: Mitral valve is normal in structure and function. VitalsHeight Weight BSA (Calculated - sq m) BP Pulse 60 220lb ? ?114/63 81 [facility]2021-10-20 20:54:06 Test Item Value Reference Range Interpretation Comments EF(Teich) (test code = 63.80 % 1669459119) LVIDD (test code = 4.40 cm 3548336026) LVIDS (test code = 2.90 cm 0203506675) IVS (test code = 0.86 cm 9978027291) LVPWD (test code = 0.86 cm 3281754695) LVOT diameter (test code 2.00 cm = 8827947459) FS (test code = 35 % 2048829658) LA size (test code = 3.4 cm 6917153013) LAV(MOD-sp4) (test code = 41.40 mL 8204827138) Ao root annulus (test 2.44 cm code = 0705205627) Ao root diam (test code = 2.44 cm 7550874753) Aortic root (test code = 2.44 cm 8714571089) PW (test code = 0.86 cm 0.6-1.7 8889413536) EF - 2D (test code = 63.80 % 18275327) Interventricular Septum 0.86 cm Diastolic Thickness by 2D (test code = 4164634) Radiology Study observation (narrative) (test code = 53886-1) LUCILLE (test code = LUCILLE) ?Left?Ventricle: Left ventricle is normal in size and function. Normal wall thickness. Normal systolic function with a visually estimated EF of 55 - 60%. ?Aortic?Valve: Aortic valve is normal in structure and function. ?Mitral?Valve: Mitral valve is normal in structure and function. VitalsHeight Weight BSA (Calculated - sq m) BP Pulse 60 220lb ? ?114/63 81 [facility] WITH [id number] 11:09:20 Test Item Value Reference Range Interpretation Comments WBC (test code = See_Comment H [Automated 2502-2) message] The system which generated this result transmit britney reference range : 4.30 - 11.10 10*3/?L. The reference range was not used to interpret this result as normal/abnormal . RBC (test code = See_Comment L [Automated 029-8) message] The system which generated this result [...] RDW-SD (test code = 46.3 fL 39.0-49.9 96954-8) RDW-CV (test code = 14.5 % 12.0-15.5 788-0) PLT (test code = See_Comment [Automated 777-3) message] The system which generated this result transmit britney reference range : 166 - 358 10*3/ ?L. The reference range was not u sed to interpret th is result as normal/abnormal . MPV (test code = 9.9 fL 9.5-12.9 56798-1) NRBC/100 WBC (test See_Comment [Automat ed code = 3925001010) message] The system which generated this result transmit britney reference range : 0.0 - 10.0 /100 WBCs. The reference range was not used to interpret this result as normal/abnormal . NRBC x10^3 (test code <0.01 See_Comment [Auto mated = 8312518015) message] The system which generated this result transmit britney reference range : 10*3/?L. The reference range was not used to interpret this result as normal/abnormal . GRAN MAT (NEUT) % 89.9 % (test code = 770-8) IMM GRAN % (test code 2.90 % = 7293434008) LYMPH % (test code = 4.2 % 736-9) MONO % (test code = 2.9 % 5905-5) EOS % (test code = 0.0 % 713-8) BASO % (test code = 0.1 % 706-2) GRAN MAT x10^3(ANC) 14.51 10*3/uL 1.88-7.09 H (test code = 4927567397) IMM GRAN x10^3 (test 0.46 10*3/uL 0.00-0.06 H code = 1886940357) LYMPH x10^3 (test code 0.67 10*3/uL 1.32-3.29 L = 731-0) MONO x10^3 (test code 0.47 10*3/uL 0.33-0.92 = 742-7) EOS x10^3 (test code = <0.03 0.03-0.39 L 711-2) BASO x10^3 (test code <0.03 0.01-0.07 = 704-7) TOXIC CHANGES (test Present A code = 803-7) Lab Interpretation Abnormal (test code = 27649-5) [facility] WITH [id number] 11:09:20 Test Item Value Reference Range Interpretation Comments WBC (test code = See_Comment H [Automated 0890-2) message] The system which generated this result [...] RDW-SD (test code = 46.3 fL 39.0-49.9 08956-7) RDW-CV (test code = 14.5 % 12.0-15.5 788-0) PLT (test code = See_Comment [Automated 777-3) message] The system which generated this result transmit britney reference range : 166 - 358 10*3/ ?L. The reference range was not u sed to interpret th is result as normal/abnormal . MPV (test code = 9.9 fL 9.5-12.9 64386-7) NRBC/100 WBC (test See_Comment [Automat ed code = 6684548421) message] The system which generated this result transmit britney reference range : 0.0 - 10.0 /100 WBCs. The reference range was not used to interpret this result as normal/abnormal . NRBC x10^3 (test code <0.01 See_Comment [Auto mated = 2107919988) message] The system which generated this result transmit britney reference range : 10*3/?L. The reference range was not used to interpret this result as normal/abnormal . GRAN MAT (NEUT) % 89.9 % (test code = 770-8) IMM GRAN % (test code 2.90 % = 5959730855) LYMPH % (test code = 4.2 % 736-9) MONO % (test code = 2.9 % 5905-5) EOS % (test code = 0.0 % 713-8) BASO % (test code = 0.1 % 706-2) GRAN MAT x10^3(ANC) 14.51 10*3/uL 1.88-7.09 H (test code = 0310309478) IMM GRAN x10^3 (test 0.46 10*3/uL 0.00-0.06 H code = 3363130066) LYMPH x10^3 (test code 0.67 10*3/uL 1.32-3.29 L = 731-0) MONO x10^3 (test code 0.47 10*3/uL 0.33-0.92 = 742-7) EOS x10^3 (test code = <0.03 0.03-0.39 L 711-2) BASO x10^3 (test code <0.03 0.01-0.07 = 704-7) TOXIC CHANGES (test Present A code = 803-7) Lab Interpretation Abnormal (test code = 28980-4) [facility] METABOLIC PANEL (NA, K, CL, CO2, GLUCOSE, BUN, CREATININE, CA)2021-10-20 10:55:22 Test Item Value Reference Range Interpretation Comments NA (test code = 136 mmol/L 135-145 9517672124) K (test code = 4.1 mmol/L 3.5-5.0 0282001669) CL (test code = 108 mmol/L 98-108 9016202057) CO2 TOTAL (test code = 25 mmol/L 23-31 4331345891) AGAP (test code = 2-16 2110170225) BUN (test code = 23 mg/dL 7-23 0363618450) GLUCOSE (test code = 134 mg/dL 70-110 H 4918093226) CREATININE (test code = 0.67 mg/dL 0.50-1.04 9747149401) CALCIUM (test code = 7.5 mg/dL 8.6-10.6 L 7074274457) eGFR (test code = mL/min/1.73m2 9014564821) LUCILLE (test code = LUCILLE) Association of [...] tests). Lab Interpretation Abnormal (test code = 57752-4) [facility] METABOLIC PANEL (NA, K, CL, CO2, GLUCOSE, BUN, CREATININE, CA)2021-10-20 10:55:22 Test Item Value Reference Range Interpretation Comments NA (test code = 136 mmol/L 135-145 7069839892) K (test code = 4.1 mmol/L 3.5-5.0 1896216305) CL (test code = 108 mmol/L 98-108 3362494411) CO2 TOTAL (test code = 25 mmol/L 23-31 8975814189) AGAP (test code = 2-16 5042793676) BUN (test code = 23 mg/dL 7-23 1122754690) GLUCOSE (test code = 134 mg/dL 70-110 H 6918617452) CREATININE (test code = 0.67 mg/dL 0.50-1.04 3997292749) CALCIUM (test code = 7.5 mg/dL 8.6-10.6 L 1120889386) eGFR (test code = mL/min/1.73m2 5339908976) LUCILLE (test code = LUCILLE) Association of [...] tests). Lab Interpretation Abnormal (test code = 55277-0) [facility] [id number] 21:49:45 Test Item Value Reference Range Interpretation Comments ANTI-DSDNA (test code See_Comment [Auto mated = 8038341552) message] The system which generated this result transmit britney reference range : 0.0 - 4.0 IU/mL . The reference range was not u sed to interpret th is result as normal/abnormal . LUCILLE (test code = LUCILLE) Negative ? ?< or = 4 IU/mLPositive ? ? ?> or = 10 IU/mLIndetermin ate ?5-9 IU/mL Lab Interpretation Normal (test code = 56189-7) [facility] [id number] 21:49:45 Test Item Value Reference Range Interpretation Comments ANTI-DSDNA (test code See_Comment [Auto mated = 3698824621) message] The system which generated this result transmit britney reference range : 0.0 - 4.0 IU/mL . The reference range was not u sed to interpret th is result as normal/abnormal . LUCILLE (test code = LUCILLE) Negative ? ?< or = 4 IU/mLPositive ? ? ?> or = 10 IU/mLIndetermin ate ?5-9 IU/mL Lab Interpretation Normal (test code = 35098-5) [facility] [id number] 21:43:06 Test Item Value Reference Range Interpretation Comments RF (test code = <20 See_Comment [Automated message] 5743563812) The system [employer] generated this result transmitted ref erence range: <20 IU/m L. The reference range was not used to int erpret this result as normal/abnormal . Lab Interpretation (test Normal code = 85691-7) [facility] [id number] 21:43:06 Test Item Value Reference Range Interpretation Comments RF (test code = <20 See_Comment [Automated message] 2622474797) The system [employer] generated this result transmitted ref erence range: <20 IU/m L. The reference range was not used to int erpret this result as normal/abnormal . Lab Interpretation (test Normal code = 47474-9) [facility] [id number] 20:22:55 Test Item Value Reference Range Interpretation Comments SHIRA Titer by IFA <=1:80 (test code = 6613058176) SHIRA Pattern (test SHIRA screen was positive code = 5787572885) at the 1:80 dilution but with low [...] specimen will be held for 7 days. [facility] [id number] 20:22:55 Test Item Value Reference Range Interpretation Comments SHIRA Titer by IFA <=1:80 (test code = 4915355033) SHIRA Pattern (test SHIRA screen was positive code = 6294815522) at the 1:80 dilution but with low [...] specimen will be held for 7 days. [facility] [id number] 18:12:04 Test Item Value Reference Range Interpretation Comments Myeloperoxidase (MPO) Negative Negative Antibodies, IgG Interpretation (test code = 09356-5) Proteinase 3 (PR3) Negative Negative Antibodies, IgG Interpretation (test code = 66811-3) Myeloperoxidase (MPO) <0.3 See_Comment [Auto mated Antibodies, IgG (test messag e] The code = 6829834296) system [facility] generated this result transmitted reference range : <=3.5 U/mL. The reference range was not used to interpret this result as normal/abnormal . Proteinase 3 (PR3) <0.7 See_Comment [Automat ed Antibodies, IgG (test messag e] The code = 1194858475) system [facility] generated this result transmitted reference [...] weeks. Lab Interpretation Normal (test code = 66333-1) [facility] [id number] 18:12:04 Test Item Value Reference Range Interpretation Comments Myeloperoxidase (MPO) Negative Negative Antibodies, IgG Interpretation (test code = 07722-9) Proteinase 3 (PR3) Negative Negative Antibodies, IgG Interpretation (test code = 15288-5) Myeloperoxidase (MPO) <0.3 See_Comment [Auto mated Antibodies, IgG (test messag e] The code = 4060150447) system [facility] generated this result transmitted reference range : <=3.5 U/mL. The reference range was not used to interpret this result as normal/abnormal . Proteinase 3 (PR3) <0.7 See_Comment [Automat ed Antibodies, IgG (test messag e] The code = 7394117804) system [facility] generated this result transmitted reference [...] weeks. Lab Interpretation Normal (test code = 92309-3) [facility] Test Item Value Reference Range Interpretation Comments MAGNESIUM (test code = 9327776230) 2.9 mg/dL 1.7-2.4 H Lab Interpretation (test code = Abnormal 16993-5) [facility] 10:47:40 Test Item Value Reference Range Interpretation Comments MAGNESIUM (test code = 1930248036) 2.9 mg/dL 1.7-2.4 H Lab Interpretation (test code = Abnormal 46932-9) [facility] WITH [id number] 09:31:49 Test Item Value Reference Range Interpretation [...] RDW-SD (test code = 45.5 fL 39.0-49.9 40464-0) RDW-CV (test code = 14.4 % 12.0-15.5 788-0) PLT (test code = See_Comment [Automated 777-3) message] The system which generated this result transmit britney reference range : 166 - 358 10*3/ ?L. The reference range was not u sed to interpret th is result as normal/abnormal . MPV (test code = 10.0 fL 9.5-12.9 48500-9) NRBC/100 WBC (test See_Comment [Automat ed code = 3961803253) message] The system which generated this result transmit britney reference range : 0.0 - 10.0 /100 WBCs. The reference range was not used to interpret this result as normal/abnormal . NRBC x10^3 (test code <0.01 See_Comment [Auto mated = 4585532399) message] The system which generated this result transmit britney reference range : 10*3/?L. The reference range was not used to interpret this result as normal/abnormal . GRAN MAT (NEUT) % 93.4 % (test code = 770-8) IMM GRAN % (test code 1.50 % = 1171481116) LYMPH % (test code = 2.4 % 736-9) MONO % (test code = 2.6 % 5905-5) EOS % (test code = 0.0 % 713-8) BASO % (test code = 0.1 % 706-2) GRAN MAT x10^3(ANC) 17.74 10*3/uL 1.88-7.09 H (test code = 1602863684) IMM GRAN x10^3 (test 0.28 10*3/uL 0.00-0.06 H code = 2826123958) LYMPH x10^3 (test code 0.46 10*3/uL 1.32-3.29 L = 731-0) MONO x10^3 (test code 0.50 10*3/uL 0.33-0.92 = 742-7) EOS x10^3 (test code = <0.03 0.03-0.39 L 711-2) BASO x10^3 (test code <0.03 0.01-0.07 = 704-7) TOXIC CHANGES (test Present A code = 803-7) Lab Interpretation Abnormal (test code = 28621-5) [facility] WITH [id number] 09:31:49 Test Item Value Reference Range Interpretation Comments WBC (test code = See_Comment H [Automated 1190-2) message] The system which generated this result transmit britney reference range : 4.30 - 11.10 10*3/?L. The reference range was not used to interpret this result as normal/abnormal . RBC (test code = See_Comment L [Automated 229-8) message] The system which generated this result [...] RDW-SD (test code = 45.5 fL 39.0-49.9 47457-1) RDW-CV (test code = 14.4 % 12.0-15.5 788-0) PLT (test code = See_Comment [Automated 777-3) message] The system which generated this result transmit britney reference range : 166 - 358 10*3/ ?L. The reference range was not u sed to interpret th is result as normal/abnormal . MPV (test code = 10.0 fL 9.5-12.9 79157-2) NRBC/100 WBC (test See_Comment [Automat ed code = 2809169877) message] The system which generated this result transmit britney reference range : 0.0 - 10.0 /100 WBCs. The reference range was not used to interpret this result as normal/abnormal . NRBC x10^3 (test code <0.01 See_Comment [Auto mated = 6252326388) message] The system which generated this result transmit britney reference range : 10*3/?L. The reference range was not used to interpret this result as normal/abnormal . GRAN MAT (NEUT) % 93.4 % (test code = 770-8) IMM GRAN % (test code 1.50 % = 0167978895) LYMPH % (test code = 2.4 % 736-9) MONO % (test code = 2.6 % 5905-5) EOS % (test code = 0.0 % 713-8) BASO % (test code = 0.1 % 706-2) GRAN MAT x10^3(ANC) 17.74 10*3/uL 1.88-7.09 H (test code = 8662951146) IMM GRAN x10^3 (test 0.28 10*3/uL 0.00-0.06 H code = 7123493691) LYMPH x10^3 (test code 0.46 10*3/uL 1.32-3.29 L = 731-0) MONO x10^3 (test code 0.50 10*3/uL 0.33-0.92 = 742-7) EOS x10^3 (test code = <0.03 0.03-0.39 L 711-2) BASO x10^3 (test code <0.03 0.01-0.07 = 704-7) TOXIC CHANGES (test Present A code = 803-7) Lab Interpretation Abnormal (test code = 32621-9) [facility] METABOLIC PANEL (NA, K, CL, CO2, GLUCOSE, BUN, CREATININE, CA)2021-10-19 09:25:48 Test Item Value Reference Range Interpretation Comments NA (test code = 144 mmol/L 135-145 8371997946) K (test code = 4.5 mmol/L 3.5-5.0 3292549720) CL (test code = 111 mmol/L 98-108 H 4394170431) CO2 TOTAL (test code = 27 mmol/L 23-31 1847882143) AGAP (test code = 2-16 4929228973) BUN (test code = 30 mg/dL 7-23 H 1330770943) GLUCOSE (test code = 159 mg/dL 70-110 H 1133049369) CREATININE (test code = 0.81 mg/dL 0.50-1.04 8860279026) CALCIUM (test code = 8.2 mg/dL 8.6-10.6 L 4689975771) eGFR (test code = mL/min/1.73m2 0458260148) LUCILLE (test code = LUCILLE) Association of [...] tests). Lab Interpretation Abnormal (test code = 09014-5) [facility] METABOLIC PANEL (NA, K, CL, CO2, GLUCOSE, BUN, CREATININE, CA)2021-10-19 09:25:48 Test Item Value Reference Range Interpretation Comments NA (test code = 144 mmol/L 135-145 4115744427) K (test code = 4.5 mmol/L 3.5-5.0 2432391795) CL (test code = 111 mmol/L 98-108 H 8568091441) CO2 TOTAL (test code = 27 mmol/L 23-31 8028102492) AGAP (test code = 2-16 8232461264) BUN (test code = 30 mg/dL 7-23 H 4540889862) GLUCOSE (test code = 159 mg/dL 70-110 H 8692938027) CREATININE (test code = 0.81 mg/dL 0.50-1.04 2877452715) CALCIUM (test code = 8.2 mg/dL 8.6-10.6 L 8525552030) eGFR (test code = mL/min/1.73m2 3881196150) LUCILLE (test code = LUCILLE) Association of [...] tests). Lab Interpretation Abnormal (test code = 16822-5) [facility] GLUCOSE (AUTOMATED)2021-10-19 02:29:39 Test Item Value Reference Range Interpretation Comments POCT GLU (test code = 0164953933) 159 mg/dL 70-110 H Lab Interpretation (test code = Abnormal 44399-4) [facility] GLUCOSE (AUTOMATED)2021-10-19 02:29:39 Test Item Value Reference Range Interpretation Comments POCT GLU (test code = 0457355492) 159 mg/dL 70-110 H Lab Interpretation (test code = Abnormal 78352-7) [facility] [id number] 22:06:05 Test Item Value Reference Range Interpretation Comments SHIRA (test code = Positive Negative A 6384532882) LUCILLE (test code = LUCILLE) Negative - No Anti-Nuclear Antibodies detected by IFA.Positive - SHIRA IFA screen performed with a 1:80 dilution in adults and a 1:40 dilution in pediatrics. Any SHIRA "Positive" will have titer performed and reported separately. Lab Interpretation (test Abnormal code = 61301-7) [facility] [id number] 22:06:05 Test Item Value Reference Range Interpretation Comments SHIRA (test code = Positive Negative A 6132505999) LUCILLE (test code = LUCILLE) Negative - No Anti-Nuclear Antibodies detected by IFA.Positive - SHIRA IFA screen performed with a 1:80 dilution in adults and a 1:40 dilution in pediatrics. Any SHIRA "Positive" will have titer performed and reported separately. Lab Interpretation (test Abnormal code = 97545-0) [facility]A1C)2021-10-18 17:16:16 Test Item Value Reference Range Interpretation Comments HGB A1C (test code = 6.0 % 4.0-5.7 H 4548-4) LUCILLE (test code = LUCILLE) Reference RangesNormal: <5.7%Prediabetes: 5.7 - 6.4%Diabetes: > 6.5% Lab Interpretation (test Abnormal code = 53761-4) [facility]2021-10-18 17:16:16 Test Item Value Reference Range Interpretation Comments HGB A1C (test code = 6.0 % 4.0-5.7 H 4548-4) LUCILLE (test code = LUCILLE) Reference RangesNormal: <5.7%Prediabetes: 5.7 - 6.4%Diabetes: > 6.5% Lab Interpretation (test Abnormal code = 03648-3) [facility] [id number] 10:21:29 Test Item Value Reference Range Interpretation Comments WBC (test code = See_Comment H [Automated 0278-2) message] The system which generated this result transmit britney reference range : 4.30 - 11.10 10*3/?L. The reference range was not used to interpret this result as normal/abnormal . RBC (test code = See_Comment L [Automated 909-8) message] The system which generated this result [...] RDW-SD (test code = 44.0 fL 39.0-49.9 87107-1) RDW-CV (test code = 14.1 % 12.0-15.5 788-0) PLT (test code = See_Comment [Automated 777-3) message] The system which generated this result transmit britney reference range : 166 - 358 10*3/ ?L. The reference range was not u sed to interpret th is result as normal/abnormal . MPV (test code = 10.5 fL 9.5-12.9 08707-0) NRBC/100 WBC (test See_Comment [Automat ed code = 9906837554) message] The system which generated this result transmit britney reference range : 0.0 - 10.0 /100 WBCs. The reference range was not used to interpret this result as normal/abnormal . NRBC x10^3 (test code <0.01 See_Comment [Auto mated = 5361269064) message] The system which generated this result transmit britney reference range : 10*3/?L. The reference range was not used to interpret this result as normal/abnormal . GRAN MAT (NEUT) % 94.3 % (test code = 770-8) IMM GRAN % (test code 1.00 % = 1119204492) LYMPH % (test code = 2.1 % 736-9) MONO % (test code = 2.5 % 5905-5) EOS % (test code = 0.0 % 713-8) BASO % (test code = 0.1 % 706-2) GRAN MAT x10^3(ANC) 18.69 10*3/uL 1.88-7.09 H (test code = 1960113457) IMM GRAN x10^3 (test 0.20 10*3/uL 0.00-0.06 H code = 5294730288) LYMPH x10^3 (test code 0.42 10*3/uL 1.32-3.29 L = 731-0) MONO x10^3 (test code 0.50 10*3/uL 0.33-0.92 = 742-7) EOS x10^3 (test code = <0.03 0.03-0.39 L 711-2) BASO x10^3 (test code <0.03 0.01-0.07 = 704-7) TOXIC CHANGES (test Present A code = 803-7) Lab Interpretation Abnormal (test code = 32192-4) [facility] WITH [id number] 10:21:29 Test Item Value Reference Range Interpretation Comments WBC (test code = See_Comment H [Automated 6119-2) message] The system which generated this result transmit britney reference range : 4.30 - 11.10 10*3/?L. The reference range was not used to interpret this result as normal/abnormal . RBC (test code = See_Comment L [Automated 499-8) message] The system which generated this result [...] RDW-SD (test code = 44.0 fL 39.0-49.9 71033-2) RDW-CV (test code = 14.1 % 12.0-15.5 788-0) PLT (test code = See_Comment [Automated 777-3) message] The system which generated this result transmit britney reference range : 166 - 358 10*3/ ?L. The reference range was not u sed to interpret th is result as normal/abnormal . MPV (test code = 10.5 fL 9.5-12.9 41978-5) NRBC/100 WBC (test See_Comment [Automat ed code = 6587587266) message] The system which generated this result transmit britney reference range : 0.0 - 10.0 /100 WBCs. The reference range was not used to interpret this result as normal/abnormal . NRBC x10^3 (test code <0.01 See_Comment [Auto mated = 5196399355) message] The system which generated this result transmit britney reference range : 10*3/?L. The reference range was not used to interpret this result as normal/abnormal . GRAN MAT (NEUT) % 94.3 % (test code = 770-8) IMM GRAN % (test code 1.00 % = 8390169757) LYMPH % (test code = 2.1 % 736-9) MONO % (test code = 2.5 % 5905-5) EOS % (test code = 0.0 % 713-8) BASO % (test code = 0.1 % 706-2) GRAN MAT x10^3(ANC) 18.69 10*3/uL 1.88-7.09 H (test code = 7490626985) IMM GRAN x10^3 (test 0.20 10*3/uL 0.00-0.06 H code = 2295939399) LYMPH x10^3 (test code 0.42 10*3/uL 1.32-3.29 L = 731-0) MONO x10^3 (test code 0.50 10*3/uL 0.33-0.92 = 742-7) EOS x10^3 (test code = <0.03 0.03-0.39 L 711-2) BASO x10^3 (test code <0.03 0.01-0.07 = 704-7) TOXIC CHANGES (test Present A code = 803-7) Lab Interpretation Abnormal (test code = 96964-7) [facility] METABOLIC PANEL (NA, K, CL, CO2, GLUCOSE, BUN, CREATININE, CA)2021-10-18 09:49:57 Test Item Value Reference Range Interpretation Comments NA (test code = 141 mmol/L 135-145 0026415456) K (test code = 4.9 mmol/L 3.5-5.0 7170073030) CL (test code = 107 mmol/L 98-108 8531241802) CO2 TOTAL (test code = 26 mmol/L 23-31 9272269990) AGAP (test code = 2-16 1040599023) BUN (test code = 30 mg/dL 7-23 H 7749504298) GLUCOSE (test code = 166 mg/dL 70-110 H 4076748093) CREATININE (test code = 0.76 mg/dL 0.50-1.04 8524070899) CALCIUM (test code = 8.2 mg/dL 8.6-10.6 L 3048899257) eGFR (test code = mL/min/1.73m2 7207964639) LUCILLE (test code = LUCILLE) Association of [...] tests). Lab Interpretation Abnormal (test code = 64036-2) [facility] Test Item Value Reference Range Interpretation Comments MAGNESIUM (test code = 0107030810) 3.0 mg/dL 1.7-2.4 H Lab Interpretation (test code = Abnormal 55151-0) [facility] 09:49:57 Test Item Value Reference Range Interpretation Comments PHOSPHORUS (test code = 6517919953) 4.0 mg/dL 2.5-5.0 Lab Interpretation (test code = Normal 56601-8) [facility] (NA, K, CL, CO2, GLUCOSE, BUN, CREATININE, CA)2021-10-18 09:49:57 Test Item Value Reference Range Interpretation Comments NA (test code = 141 mmol/L 135-145 5929944964) K (test code = 4.9 mmol/L 3.5-5.0 4440072224) CL (test code = 107 mmol/L 98-108 9173633294) CO2 TOTAL (test code = 26 mmol/L 23-31 4040146440) AGAP (test code = 2-16 0268301011) BUN (test code = 30 mg/dL 7-23 H 1365205280) GLUCOSE (test code = 166 mg/dL 70-110 H 7911686789) CREATININE (test code = 0.76 mg/dL 0.50-1.04 8954804684) CALCIUM (test code = 8.2 mg/dL 8.6-10.6 L 0292592771) eGFR (test code = mL/min/1.73m2 6140886351) LUCILLE (test code = LUCILLE) Association of [...] tests). Lab Interpretation Abnormal (test code = 36944-9) [facility] 09:49:57 Test Item Value Reference Range Interpretation Comments MAGNESIUM (test code = 8326002183) 3.0 mg/dL 1.7-2.4 H Lab Interpretation (test code = Abnormal 61608-5) [facility] 09:49:57 Test Item Value Reference Range Interpretation Comments PHOSPHORUS (test code = 7017215506) 4.0 mg/dL 2.5-5.0 Lab Interpretation (test code = Normal 74738-5) [facility]-AB WITH [id number] 02:31:06 Test Item Value Reference Range Interpretation Comments HIV Negative Negative Semi-quantitative (test code = 77017-3) LUCILLE (test code = Non-reactive for HIV-1 LUCILLE) antigen and HIV-1/HIV-2 antibodies. ?No laboratory evidence of HIV infection. ?Repeat in 2-4 weeks if acute HIV infection is suspected. [facility] WITH [id number] 02:31:06 Test Item Value Reference Range Interpretation Comments HIV Negative Negative Semi-quantitative (test code = 00440-0) LUCILLE (test code = Non-reactive for HIV-1 LUCILLE) antigen and HIV-1/HIV-2 antibodies. ?No laboratory evidence of HIV infection. ?Repeat in 2-4 weeks if acute HIV infection is suspected. [facility] (NA, K, CL, CO2, GLUCOSE, BUN, CREATININE, CA)2021-10-18 01:11:26 Test Item Value Reference Range Interpretation Comments NA (test code = 141 mmol/L 135-145 1190848341) K (test code = 4.6 mmol/L 3.5-5.0 1289009928) CL (test code = 106 mmol/L 98-108 1480276538) CO2 TOTAL (test code = 26 mmol/L 23-31 3277710878) AGAP (test code = 2-16 8193584712) BUN (test code = 28 mg/dL 7-23 H 8306050253) GLUCOSE (test code = 180 mg/dL 70-110 H 3707599430) CREATININE (test code = 0.82 mg/dL 0.50-1.04 7206388630) CALCIUM (test code = 8.3 mg/dL 8.6-10.6 L 9841197824) eGFR (test code = mL/min/1.73m2 9285362046) LUCILLE (test code = LUCILLE) Association of [...] tests). Lab Interpretation Abnormal (test code = 79396-0) [facility] METABOLIC PANEL (NA, K, CL, CO2, GLUCOSE, BUN, CREATININE, CA)2021-10-18 01:11:26 Test Item Value Reference Range Interpretation Comments NA (test code = 141 mmol/L 135-145 3964642201) K (test code = 4.6 mmol/L 3.5-5.0 5929853296) CL (test code = 106 mmol/L 98-108 5393434154) CO2 TOTAL (test code = 26 mmol/L 23-31 9158735543) AGAP (test code = 2-16 1693244456) BUN (test code = 28 mg/dL 7-23 H 1715923224) GLUCOSE (test code = 180 mg/dL 70-110 H 2999531413) CREATININE (test code = 0.82 mg/dL 0.50-1.04 8302998128) CALCIUM (test code = 8.3 mg/dL 8.6-10.6 L 4791471137) eGFR (test code = mL/min/1.73m2 7540965966) LUCILLE (test code = LUCILLE) Association of [...] tests). Lab Interpretation Abnormal (test code = 38857-3) [facility] [id number] 22:06:03 Test Item Value Reference Range Interpretation Comments NT-proBNP (test code 250 pg/mL See_Comment H [Autom ated = 7116238259) message] The system which generated this result transmitted reference range : <=125. The reference range was not used to interpret this result as normal/abnormal . LUCILLE (test code = LUCILLE) Biotin has been reported to cause a negative bias, interpret results relative to patient's use of biotin. Lab Interpretation Abnormal (test code = 91210-3) [facility] [id number] 22:06:03 Test Item Value Reference Range Interpretation Comments NT-proBNP (test code 250 pg/mL See_Comment H [Autom ated = 4175490460) message] The system which generated this result transmitted reference range : <=125. The reference range was not used to interpret this result as normal/abnormal . LUCILLE (test code = LUCILLE) Biotin has been reported to cause a negative bias, interpret results relative to patient's use of biotin. Lab Interpretation Abnormal (test code = 45671-1) [facility]+COOX+NA+K+GLU+CA2+2021-10-17 21:42:22 Test Item Value Reference Range Interpretation Comments PH (test code = 2) 7.35-7.45 PCO2 (test code = See_Comment [Automat ed message] 0856599542) The system [employer] generated this result transmit britney reference range : 35 - 45 mmHg. The reference range was not used to interpret this result as normal/abnormal . PO2 (test code = See_Comment H [Automated message] 6657320769) The system [employer] [facility] generated this result transmit britney reference range : 80 - 100 mmHg. The reference range was not used to interpret this result as normal/abnormal . HCO3 (test code = See_Comment [Automate d message] 1489497682) The system [employer] generated this result transmit britney reference range : 22 - 26 mEq/L. The reference range was not used to interpret this result as normal/abnormal . BE (test code = See_Comment [Automated message] 9657070901) The system [employer] generated this result transmit britney reference range : -3.0 - 3.0 mEq/ L. The reference r nicholas was not used to interpret this result as normal/abnormal . THB (test code = 13.0 g/dL 12.0-16.0 8103634525) %O2HB (test code = 98.9 % 94.0-99.0 3213405068) %COHB ART (test code = 0.3 % 0.0-1.5 3754454945) %METHB ART (test code = 0.0 % 0.4-1.5 L 8117519115) VOL%O2 ART (test code = 18.5 % 15.0-23.0 9764857340) NA (test code = 139 mmol/L 135-145 2262487952) K+ (test code = 4.6 mmol/L 3.5-5.0 1007187870) AC CA IONZ (test code = 4.50 mg/dL 4.50-5.30 1677842183) GLUCOSE (test code = 166 mg/dL 70-110 H 0900392791) Lab Interpretation Abnormal (test code = 32940-0) [facility]COOX+NA+K+GLU+CA2+2021-10-17 21:42:22 Test Item Value Reference Range Interpretation Comments PH (test code = 2) 7.35-7.45 PCO2 (test code = See_Comment [Automat ed message] 9449058650) The system [employer] generated this result transmit britney reference range : 35 - 45 mmHg. The reference range was not used to interpret this result as normal/abnormal . PO2 (test code = See_Comment H [Automated message] 1726236797) The system [employer] generated this result transmit britney reference range : 80 - 100 mmHg. The reference range was not used to interpret this result as normal/abnormal . HCO3 (test code = See_Comment [Automate d message] 5598633233) The system [employer] generated this result transmit britney reference range : 22 - 26 mEq/L. The reference range was not used to interpret this result as normal/abnormal . BE (test code = See_Comment [Automated message] 3910564973) The system [employer] generated this result transmit britney reference range : -3.0 - 3.0 mEq/ L. The reference r nicholas was not used to interpret this result as normal/abnormal . THB (test code = 13.0 g/dL 12.0-16.0 0068892621) %O2HB (test code = 98.9 % 94.0-99.0 7330141280) %COHB ART (test code = 0.3 % 0.0-1.5 1240668075) %METHB ART (test code = 0.0 % 0.4-1.5 L 4040608498) VOL%O2 ART (test code = 18.5 % 15.0-23.0 0323178434) NA (test code = 139 mmol/L 135-145 7488799324) K+ (test code = 4.6 mmol/L 3.5-5.0 4681046829) AC CA IONZ (test code = 4.50 mg/dL 4.50-5.30 4199428982) GLUCOSE (test code = 166 mg/dL 70-110 H 9825295049) Lab Interpretation Abnormal (test code = 24232-7) [facility] WITH [id number] 11:01:03 Test Item Value Reference Range Interpretation Comments WBC (test code = See_Comment H [Automated 2890-2) message] The system which generated this result transmit britney reference range : 4.30 - 11.10 10*3/?L. The reference range was not used to interpret this result as normal/abnormal . RBC (test code = See_Comment [Automated 987-8) message] The system which generated this result [...] RDW-SD (test code = 44.5 fL 39.0-49.9 39414-6) RDW-CV (test code = 14.1 % 12.0-15.5 788-0) PLT (test code = See_Comment [Automated 777-3) message] The system which generated this result transmit britney reference range : 166 - 358 10*3/ ?L. The reference range was not u sed to interpret th is result as normal/abnormal . MPV (test code = 11.0 fL 9.5-12.9 81827-9) NRBC/100 WBC (test See_Comment [Automat ed code = 1243466553) message] The system which generated this result transmit britney reference range : 0.0 - 10.0 /100 WBCs. The reference range was not used to interpret this result as normal/abnormal . NRBC x10^3 (test code <0.01 See_Comment [Auto mated = 3499638613) message] The system which generated this result transmit britney reference range : 10*3/?L. The reference range was not used to interpret this result as normal/abnormal . GRAN MAT (NEUT) % 91.6 % (test code = 770-8) IMM GRAN % (test code 1.40 % = 3918063394) LYMPH % (test code = 5.5 % 736-9) MONO % (test code = 1.4 % 5905-5) EOS % (test code = 0.0 % 713-8) BASO % (test code = 0.1 % 706-2) GRAN MAT x10^3(ANC) 17.75 10*3/uL 1.88-7.09 H (test code = 5625236651) IMM GRAN x10^3 (test 0.27 10*3/uL 0.00-0.06 H code = 9990567175) LYMPH x10^3 (test code 1.06 10*3/uL 1.32-3.29 L = 731-0) MONO x10^3 (test code 0.28 10*3/uL 0.33-0.92 L = 742-7) EOS x10^3 (test code = <0.03 0.03-0.39 L 711-2) BASO x10^3 (test code <0.03 0.01-0.07 = 704-7) TOXIC CHANGES (test Present A code = 803-7) Lab Interpretation Abnormal (test code = 92704-2) [facility] WITH [id number] 11:01:03 Test Item Value Reference Range Interpretation Comments WBC (test code = See_Comment H [Automated 9990-2) message] The system which generated this result [...] RDW-SD (test code = 44.5 fL 39.0-49.9 19672-7) RDW-CV (test code = 14.1 % 12.0-15.5 788-0) PLT (test code = See_Comment [Automated 777-3) message] The system which generated this result transmit britney reference range : 166 - 358 10*3/ ?L. The reference range was not u sed to interpret th is result as normal/abnormal . MPV (test code = 11.0 fL 9.5-12.9 01452-2) NRBC/100 WBC (test See_Comment [Automat ed code = 2221634121) message] The system which generated this result transmit britney reference range : 0.0 - 10.0 /100 WBCs. The reference range was not used to interpret this result as normal/abnormal . NRBC x10^3 (test code <0.01 See_Comment [Auto mated = 9147324108) message] The system which generated this result transmit britney reference range : 10*3/?L. The reference range was not used to interpret this result as normal/abnormal . GRAN MAT (NEUT) % 91.6 % (test code = 770-8) IMM GRAN % (test code 1.40 % = 0914193019) LYMPH % (test code = 5.5 % 736-9) MONO % (test code = 1.4 % 5905-5) EOS % (test code = 0.0 % 713-8) BASO % (test code = 0.1 % 706-2) GRAN MAT x10^3(ANC) 17.75 10*3/uL 1.88-7.09 H (test code = 6323921139) IMM GRAN x10^3 (test 0.27 10*3/uL 0.00-0.06 H code = 2848024422) LYMPH x10^3 (test code 1.06 10*3/uL 1.32-3.29 L = 731-0) MONO x10^3 (test code 0.28 10*3/uL 0.33-0.92 L = 742-7) EOS x10^3 (test code = <0.03 0.03-0.39 L 711-2) BASO x10^3 (test code <0.03 0.01-0.07 = 704-7) TOXIC CHANGES (test Present A code = 803-7) Lab Interpretation Abnormal (test code = 35857-3) [facility] METABOLIC PANEL (NA, K, CL, CO2, GLUCOSE, BUN, CREATININE, CA)2021-10-17 10:54:32 Test Item Value Reference Range Interpretation Comments NA (test code = 135 mmol/L 135-145 4366321270) K (test code = 5.2 mmol/L 3.5-5.0 H Slight 2958195909) hemolysis CL (test code = 101 mmol/L 98-108 1911016905) CO2 TOTAL (test code 27 mmol/L 23-31 = 2908401360) AGAP (test code = 2-16 6902684889) BUN (test code = 21 mg/dL 7-23 Slight 2052858541) hemolysis GLUCOSE (test code = 153 mg/dL 70-110 H 6073732001) CREATININE (test code 0.71 mg/dL 0.50-1.04 = 1083503509) CALCIUM (test code = 8.3 mg/dL 8.6-10.6 L 9843663246) eGFR (test code = mL/min/1.73m2 6204393212) LUCILLE (test code = LUCILLE) Association of [...] tests). Lab Interpretation Abnormal (test code = 62814-5) [facility] Test Item Value Reference Range Interpretation Comments MAGNESIUM (test code = 6519720154) 2.2 mg/dL 1.7-2.4 Lab Interpretation (test code = Normal 93293-2) [facility] 10:54:32 Test Item Value Reference Range Interpretation Comments PHOSPHORUS (test code = 0884551443) 5.9 mg/dL 2.5-5.0 H Lab Interpretation (test code = Abnormal 55715-8) [facility] (NA, K, CL, CO2, GLUCOSE, BUN, CREATININE, CA)2021-10-17 10:54:32 Test Item Value Reference Range Interpretation Comments NA (test code = 135 mmol/L 135-145 [id number]) K (test code = 5.2 mmol/L 3.5-5.0 H Slight [id number]) hemolysis CL (test code = 101 mmol/L 98-108 5210767304) CO2 TOTAL (test code 27 mmol/L 23-31 = 1301389764) AGAP (test code = 2-16 9942939349) BUN (test code = 21 mg/dL 7-23 Slight 1526757231) hemolysis GLUCOSE (test code = 153 mg/dL 70-110 H 9106299771) CREATININE (test code 0.71 mg/dL 0.50-1.04 = 1521696833) CALCIUM (test code = 8.3 mg/dL 8.6-10.6 L 4529288160) eGFR (test code = mL/min/1.73m2 9450085015) LUCILLE (test code = LUCILLE) Association of [...] tests). Lab Interpretation Abnormal (test code = 39308-9) [facility]2022-02-14 10:54:32 Test Item Value Reference Range Interpretation Comments MAGNESIUM (test code = 6899877384) 2.2 mg/dL 1.7-2.4 Lab Interpretation (test code = Normal 20767-9) [facility] Test Item Value Reference Range Interpretation Comments PHOSPHORUS (test code = 7725518603) 5.9 mg/dL 2.5-5.0 H Lab Interpretation (test code = Abnormal 51100-5) [facility] [id number] 10:53:06 Test Item Value Reference Range Interpretation Comments ESR (test code = See_Comment H [Automated message] 7447694054) The system [employer] generated this result transmitted ref erence range: 0 - 20 m m/HR. The reference r nicholas was not used to interpret this result as normal/abnor mal. Lab Interpretation (test Abnormal code = 86562-7) [facility] [id number] 10:53:06 Test Item Value Reference Range Interpretation Comments ESR (test code = See_Comment H [Automated message] 5485507787) The system [employer] generated this result transmitted ref erence range: 0 - 20 m m/HR. The reference r nicholas was not used to interpret this result as normal/abnor mal. Lab Interpretation (test Abnormal code = 54554-7) [facility]2022-02-13 11:13:05 Test Item Value Reference Range Interpretation Comments MAGNESIUM (test code = 8879317595) 2.3 mg/dL 1.7-2.4 Lab Interpretation (test code = Normal 48318-9) [facility] 11:13:05 Test Item Value Reference Range Interpretation Comments PHOSPHORUS (test code = 1384934091) 3.4 mg/dL 2.5-5.0 Lab Interpretation (test code = Normal 52165-9) [facility] 11:13:05 Test Item Value Reference Range Interpretation Comments MAGNESIUM (test code = 1641161457) 2.3 mg/dL 1.7-2.4 Lab Interpretation (test code = Normal 33641-2) [facility] 11:13:05 Test Item Value Reference Range Interpretation Comments PHOSPHORUS (test code = 9654531895) 3.4 mg/dL 2.5-5.0 Lab Interpretation (test code = Normal 51000-9) [facility] (NA, K, CL, CO2, GLUCOSE, BUN, CREATININE, CA)2021-10-16 11:13:04 Test Item Value Reference Range Interpretation Comments NA (test code = 135 mmol/L 135-145 0545190859) K (test code = 4.6 mmol/L 3.5-5.0 4444428325) CL (test code = 102 mmol/L 98-108 1755231983) CO2 TOTAL (test code = 29 mmol/L 23-31 4466800027) AGAP (test code = 2-16 2631692714) BUN (test code = 24 mg/dL 7-23 H 3148736272) GLUCOSE (test code = 90 mg/dL 70-110 4237216015) CREATININE (test code = 0.87 mg/dL 0.50-1.04 1723065566) CALCIUM (test code = 8.0 mg/dL 8.6-10.6 L 0943936382) eGFR (test code = mL/min/1.73m2 1907169334) LUCILLE (test code = LUCILLE) Association of [...] tests). Lab Interpretation Abnormal (test code = 68906-0) [facility] METABOLIC PANEL (NA, K, CL, CO2, GLUCOSE, BUN, CREATININE, CA)2021-10-16 11:13:04 Test Item Value Reference Range Interpretation Comments NA (test code = 135 mmol/L 135-145 3392922751) K (test code = 4.6 mmol/L 3.5-5.0 1771733801) CL (test code = 102 mmol/L 98-108 2944672181) CO2 TOTAL (test code = 29 mmol/L 23-31 6772622495) AGAP (test code = 2-16 2283490523) BUN (test code = 24 mg/dL 7-23 H 5320199711) GLUCOSE (test code = 90 mg/dL 70-110 8197734870) CREATININE (test code = 0.87 mg/dL 0.50-1.04 8901275522) CALCIUM (test code = 8.0 mg/dL 8.6-10.6 L 0619264373) eGFR (test code = mL/min/1.73m2 1936583236) LUCILLE (test code = LUCILLE) Association of [...] tests). Lab Interpretation Abnormal (test code = 76306-3) [facility] L[facility] [id number] 10:59:55 Test Item Value Reference Range Interpretation Comments PH (test code = 2) 7.35-7.45 PCO2 (test code = See_Comment [Automat ed 3357541894) message] The sy stem which generated this result transmitted reference range : 35 - 45 mmHg. The reference range was not used to interpret this result as normal/abnormal . PO2 (test code = See_Comment L [Automated 9461494104) message] The sy stem which generated this result transmitted reference range : 80 - 100 mmHg. The reference range was not used to interpret this result as normal/abnormal . HCO3 (test code = See_Comment H [Automate d 4655706214) message] The sy stem which generated this result transmitted reference range : 22 - 26 mEq/L. The reference range was not used to interpret this result as normal/abnormal . BE (test code = See_Comment [Automated 3674684579) message] The sy stem which generated this result transmitted reference range : -3.0 - 3.0 mEq/ L. The reference r nicholas was not used to interpret this result as normal/abnormal . THB (test code = 13.7 g/dL 12.0-16.0 1053819547) %O2HB (test code = 86.3 % 94.0-99.0 L 3645198739) %COHB ART (test code = 0.1 % 0.0-1.5 2127961284) %METHB ART (test code = 0.1 % 0.4-1.5 L 0823762893) VOL%O2 ART (test code = 16.6 % 15.0-23.0 5242709742) NA (test code = 135 mmol/L 135-145 4984750360) K+ (test code = 4.6 mmol/L 3.5-5.0 5114409489) AC CA IONZ (test code = 4.70 mg/dL 4.50-5.30 8586219592) GLUCOSE (test code = 88 mg/dL 70-110 4374787029) LACTIC ACID (test code 1.41 mmol/L 0.50-2.20 QUES = 4019215727) Lab Interpretation Abnormal (test code = 36488-2) [facility] [id number] 10:59:55 Test Item Value Reference Range Interpretation Comments PH (test code = 2) 7.35-7.45 PCO2 (test code = See_Comment [Automat ed 7660474578) message] The sy stem which generated this result transmitted reference range : 35 - 45 mmHg. The reference range was not used to interpret this result as normal/abnormal . PO2 (test code = See_Comment L [Automated 5443097355) message] The sy stem which generated this result transmitted reference range : 80 - 100 mmHg. The reference range was not used to interpret this result as normal/abnormal . HCO3 (test code = See_Comment H [Automate d 2460320806) message] The sy stem which generated this result transmitted reference range : 22 - 26 mEq/L. The reference range was not used to interpret this result as normal/abnormal . BE (test code = See_Comment [Automated 7747737397) message] The sy stem which generated this result transmitted reference range : -3.0 - 3.0 mEq/ L. The reference r nicholas was not used to interpret this result as normal/abnormal . THB (test code = 13.7 g/dL 12.0-16.0 1971013511) %O2HB (test code = 86.3 % 94.0-99.0 L 2179413227) %COHB ART (test code = 0.1 % 0.0-1.5 3846264351) %METHB ART (test code = 0.1 % 0.4-1.5 L 7860831937) VOL%O2 ART (test code = 16.6 % 15.0-23.0 3020066675) NA (test code = 135 mmol/L 135-145 0310180249) K+ (test code = 4.6 mmol/L 3.5-5.0 0913271207) AC CA IONZ (test code = 4.70 mg/dL 4.50-5.30 0785424280) GLUCOSE (test code = 88 mg/dL 70-110 2647353602) LACTIC ACID (test code 1.41 mmol/L 0.50-2.20 QUES = 0384916026) Lab Interpretation Abnormal (test code = 86731-7) [facility] WITH [id number] 10:54:01 Test Item Value Reference Range Interpretation Comments WBC (test code = See_Comment H [Automated 0016-2) message] The system which generated this result transmit britney reference range : 4.30 - 11.10 10*3/?L. The reference range was not used to interpret this result as normal/abnormal . RBC (test code = See_Comment [Automated 269-8) message] The system which generated this result [...] RDW-SD (test code = 47.0 fL 39.0-49.9 94298-0) RDW-CV (test code = 14.6 % 12.0-15.5 788-0) PLT (test code = See_Comment [Automated 777-3) message] The system which generated this result transmit britney reference range : 166 - 358 10*3/ ?L. The reference range was not u sed to interpret th is result as normal/abnormal . MPV (test code = 10.5 fL 9.5-12.9 65979-8) NRBC/100 WBC (test See_Comment [Automat ed code = 9100525755) message] The system which generated this result transmit britney reference range : 0.0 - 10.0 /100 WBCs. The reference range was not used to interpret this result as normal/abnormal . NRBC x10^3 (test code See_Comment [Auto mated = 0541047778) message] The system which generated this result transmit britney reference range : 10*3/?L. The reference range was not used to interpret this result as normal/abnormal . GRAN MAT (NEUT) % 85.6 % (test code = 770-8) IMM GRAN % (test code 1.10 % = 7787365929) LYMPH % (test code = 9.7 % 736-9) MONO % (test code = 3.0 % 5905-5) EOS % (test code = 0.5 % 713-8) BASO % (test code = 0.1 % 706-2) GRAN MAT x10^3(ANC) 12.97 10*3/uL 1.88-7.09 H (test code = 8601203264) IMM GRAN x10^3 (test 0.16 10*3/uL 0.00-0.06 H code = 9152161022) LYMPH x10^3 (test code 1.47 10*3/uL 1.32-3.29 = 731-0) MONO x10^3 (test code 0.45 10*3/uL 0.33-0.92 = 742-7) EOS x10^3 (test code = 0.08 10*3/uL 0.03-0.39 711-2) BASO x10^3 (test code <0.03 0.01-0.07 = 704-7) Lab Interpretation Abnormal (test code = 81887-7) [facility] WITH [id number] 10:54:01 Test Item Value Reference Range Interpretation Comments WBC (test code = See_Comment H [Automated 9790-2) message] The system which generated this result [...] RDW-SD (test code = 47.0 fL 39.0-49.9 26018-8) RDW-CV (test code = 14.6 % 12.0-15.5 788-0) PLT (test code = See_Comment [Automated 777-3) message] The system which generated this result transmit britney reference range : 166 - 358 10*3/ ?L. The reference range was not u sed to interpret th is result as normal/abnormal . MPV (test code = 10.5 fL 9.5-12.9 01992-2) NRBC/100 WBC (test See_Comment [Automat ed code = 6321450273) message] The system which generated this result transmit britney reference range : 0.0 - 10.0 /100 WBCs. The reference range was not used to interpret this result as normal/abnormal . NRBC x10^3 (test code See_Comment [Auto mated = 2481256159) message] The system which generated this result transmit britney reference range : 10*3/?L. The reference range was not used to interpret this result as normal/abnormal . GRAN MAT (NEUT) % 85.6 % (test code = 770-8) IMM GRAN % (test code 1.10 % = 3470427007) LYMPH % (test code = 9.7 % 736-9) MONO % (test code = 3.0 % 5905-5) EOS % (test code = 0.5 % 713-8) BASO % (test code = 0.1 % 706-2) GRAN MAT x10^3(ANC) 12.97 10*3/uL 1.88-7.09 H (test code = 8644883181) IMM GRAN x10^3 (test 0.16 10*3/uL 0.00-0.06 H code = 7639402363) LYMPH x10^3 (test code 1.47 10*3/uL 1.32-3.29 = 731-0) MONO x10^3 (test code 0.45 10*3/uL 0.33-0.92 = 742-7) EOS x10^3 (test code = 0.08 10*3/uL 0.03-0.39 711-2) BASO x10^3 (test code <0.03 0.01-0.07 = 704-7) Lab Interpretation Abnormal (test code = 10962-1) [facility]-REACTIVE [id number] 23:24:07 Test Item Value Reference Range Interpretation Comments CRP (test code = 3672887808) 22.1 mg/dL <1.0 H Lab Interpretation (test code = Abnormal 48292-4) [facility]-REACTIVE [id number] 23:24:07 Test Item Value Reference Range Interpretation Comments CRP (test code = 0257256329) 22.1 mg/dL <1.0 H Lab Interpretation (test code = Abnormal 21298-0) [facility] [id number] 23:21:42 Test Item Value Reference Interpretation Comments Range TROPONIN I (test 0.003 ng/mL See_Comment [Automated code = 6878185482) message] The system which generated this result [...] biotin. Lab Interpretation Normal (test code = 90603-0) [facility] [id number] 23:21:42 Test Item Value Reference Interpretation Comments Range TROPONIN I (test 0.003 ng/mL See_Comment [Automated code = 5555794858) message] The system which generated this result [...] biotin. Lab Interpretation Normal (test code = 26321-8) [facility] METABOLIC PANEL (NA, K, CL, CO2, GLUCOSE, BUN, CREATININE, CA)2021-10-15 23:12:40 Test Item Value Reference Range Interpretation Comments NA (test code = 136 mmol/L 135-145 9075680765) K (test code = 4.8 mmol/L 3.5-5.0 1119394601) CL (test code = 104 mmol/L 98-108 8658683868) CO2 TOTAL (test code = 26 mmol/L 23-31 9225311653) AGAP (test code = 2-16 7390721584) BUN (test code = 22 mg/dL 7-23 9527222882) GLUCOSE (test code = 114 mg/dL 70-110 H 6174288306) CREATININE (test code = 0.77 mg/dL 0.50-1.04 4456944090) CALCIUM (test code = 8.2 mg/dL 8.6-10.6 L 8607577960) eGFR (test code = mL/min/1.73m2 8584666341) LUCILLE (test code = LUCILLE) Association of [...] tests). Lab Interpretation Abnormal (test code = 14224-6) [facility] METABOLIC PANEL (NA, K, CL, CO2, GLUCOSE, BUN, CREATININE, CA)2021-10-15 23:12:40 Test Item Value Reference Range Interpretation Comments NA (test code = 136 mmol/L 135-145 0911274769) K (test code = 4.8 mmol/L 3.5-5.0 7802250231) CL (test code = 104 mmol/L 98-108 3843084119) CO2 TOTAL (test code = 26 mmol/L 23-31 8597617869) AGAP (test code = 2-16 6883778401) BUN (test code = 22 mg/dL 7-23 8943620449) GLUCOSE (test code = 114 mg/dL 70-110 H 6205560772) CREATININE (test code = 0.77 mg/dL 0.50-1.04 3802770448) CALCIUM (test code = 8.2 mg/dL 8.6-10.6 L 2560248237) eGFR (test code = mL/min/1.73m2 9826713082) LUCILLE (test code = LUCILLE) Association of [...] tests). Lab Interpretation Abnormal (test code = 13001-9) [facility] [id number] 21:55:57 Test Item Value Reference Interpretation Comments Range TROPONIN I (test 0.003 ng/mL See_Comment [Automated code = 2558220218) message] The system which generated this result [...] biotin. Lab Interpretation Normal (test code = 83755-9) [facility] [id number] 21:55:57 Test Item Value Reference Interpretation Comments Range TROPONIN I (test 0.003 ng/mL See_Comment [Automated code = 8029898377) message] The system which generated this result [...] biotin. Lab Interpretation Normal (test code = 14224-1) [facility] 19:07:46 Test Item Value Reference Range Interpretation Comments Procalcitonin (test 0.15 ng/mL <0.08 H code = 7223324033) LUCILLE (test code = LUCILLE) INTERPRETATION OF [...] lung abscess/empyema. For further information please refer to:[email or web address] Lab Interpretation Abnormal (test code = 71309-0) [facility]12 19:07:46 Test Item Value Reference Range Interpretation Comments Procalcitonin (test 0.15 ng/mL <0.08 H code = 1490718698) LUCILLE (test code = LUCILLE) INTERPRETATION OF [...] lung abscess/empyema. For further information please refer to:[email or web address] Lab Interpretation Abnormal (test code = 49573-6) [facility]-TERMINAL WEP-[id number] 18:31:24 Test Item Value Reference Range Interpretation Comments NT-proBNP (test code 43 pg/mL See_Comment [Autom ated = 5248852634) message] The system which generated this result transmitted reference range : <=125. The reference range was not used to interpret this result as normal/abnormal . LUCILLE (test code = LUCILLE) Biotin has been reported to cause a negative bias, interpret results relative to patient's use of biotin. Lab Interpretation Normal (test code = 31819-9) [facility]-TERMIN[facility] [id number] 18:31:24 Test Item Value Reference Range Interpretation Comments NT-proBNP (test code 43 pg/mL See_Comment [Autom ated = 7002627628) message] The system which generated this result transmitted reference range : <=125. The reference range was not used to interpret this result as normal/abnormal . LUCILLE (test code = LUCILLE) Biotin has been reported to cause a negative bias, interpret results relative to patient's use of biotin. Lab Interpretation Normal (test code = 23762-6) [facility] 09:17:58 Test Item Value Reference Range Interpretation Comments Procalcitonin (test 0.15 ng/mL <0.08 H code = 1326430959) LUCILLE (test code = LUCILLE) INTERPRETATION OF [...] lung abscess/empyema. For further information please refer to:[email or web address] Lab Interpretation Abnormal (test code = 92927-2) [facility] 09:17:58 Test Item Value Reference Range Interpretation Comments Procalcitonin (test 0.15 ng/mL <0.08 H code = 5223494062) LUCILLE (test code = LUCILLE) INTERPRETATION OF [...] lung abscess/empyema. For further information please refer to:[email or web address] Lab Interpretation Abnormal (test code = 61621-3) [facility] (NA, K, CL, CO2, GLUCOSE, BUN, CREATININE, CA)2021-10-15 08:36:11 Test Item Value Reference Range Interpretation Comments NA (test code = 139 mmol/L 135-145 6863190643) K (test code = 5.5 mmol/L 3.5-5.0 H Slight 5350288839) hemolysis CL (test code = 104 mmol/L 98-108 4902301097) CO2 TOTAL (test code 29 mmol/L 23-31 = 4449582514) AGAP (test code = 2-16 1550603340) BUN (test code = 17 mg/dL 7-23 Slight 2124356158) hemolysis GLUCOSE (test code = 131 mg/dL 70-110 H 0788776571) CREATININE (test code 0.77 mg/dL 0.50-1.04 = 0332776244) CALCIUM (test code = 8.5 mg/dL 8.6-10.6 L 3387347502) eGFR (test code = mL/min/1.73m2 0149644872) LUCILLE (test code = LUCILLE) Association of [...] tests). Lab Interpretation Abnormal (test code = 61065-6) [id number] 08:36:11 Test Item Value Reference Range Interpretation Comments MAGNESIUM (test code = 9636167714) 2.4 mg/dL 1.7-2.4 Lab Interpretation (test code = Normal 70272-1) [facility] METABOLIC PANEL (NA, K, CL, CO2, GLUCOSE, BUN, CREATININE, CA)2021-10-15 08:36:11 Test Item Value Reference Range Interpretation Comments NA (test code = 139 mmol/L 135-145 2917810977) K (test code = 5.5 mmol/L 3.5-5.0 H Slight 7776815811) hemolysis CL (test code = 104 mmol/L 98-108 1225972123) CO2 TOTAL (test code 29 mmol/L 23-31 = 1883924800) AGAP (test code = 2-16 9131710194) BUN (test code = 17 mg/dL 7-23 Slight 4271458010) hemolysis GLUCOSE (test code = 131 mg/dL 70-110 H 6926631430) CREATININE (test code 0.77 mg/dL 0.50-1.04 = 3594939985) CALCIUM (test code = 8.5 mg/dL 8.6-10.6 L 5651421096) eGFR (test code = mL/min/1.73m2 7118122512) LUCILLE (test code = LUCILLE) Association of [...] tests). Lab Interpretation Abnormal (test code = 72755-0) [facility] [id number] 08:36:11 Test Item Value Reference Range Interpretation Comments MAGNESIUM (test code = 7029119639) 2.4 mg/dL 1.7-2.4 Lab Interpretation (test code = Normal 11453-4) [facility] [id number] 08:21:08 Test Item Value Reference Interpretation Comments Range TROPONIN I (test 0.005 ng/mL See_Comment [Automated code = 8320137080) message] The system which generated this result [...] biotin. Lab Interpretation Normal (test code = 32983-8) [facility] [id number] 08:21:08 Test Item Value Reference Interpretation Comments Range TROPONIN I (test 0.005 ng/mL See_Comment [Automated code = 4163294378) message] The system which generated this result [...] biotin. Lab Interpretation Normal (test code = 97876-5) [facility] WITH [id number] 07:37:26 Test Item Value Reference Range Interpretation Comments WBC (test code = See_Comment H [Automated 7394-2) message] The system which generated this result transmit britney reference range : 4.30 - 11.10 10*3/?L. The reference range was not used to interpret this result as normal/abnormal . RBC (test code = See_Comment [Automated 497-8) message] The system which generated this result [...] RDW-SD (test code = 47.4 fL 39.0-49.9 94003-3) RDW-CV (test code = 14.6 % 12.0-15.5 788-0) PLT (test code = See_Comment [Automated 717-3) message] The system which generated this result transmit britney reference range : 166 - 358 10*3/ ?L. The reference range was not u sed to interpret th is result as normal/abnormal . MPV (test code = 11.1 fL 9.5-12.9 08430-7) NRBC/100 WBC (test See_Comment [Automat ed code = 3837459294) message] The system which generated this result transmit britney reference range : 0.0 - 10.0 /100 WBCs. The reference range was not used to interpret this result as normal/abnormal . NRBC x10^3 (test code <0.01 See_Comment [Auto mated = 6202567588) message] The system which generated this result transmit britney reference range : 10*3/?L. The reference range was not used to interpret this result as normal/abnormal . GRAN MAT (NEUT) % 92.0 % (test code = 770-8) IMM GRAN % (test code 1.10 % = 5955657470) LYMPH % (test code = 5.0 % 736-9) MONO % (test code = 1.8 % 5905-5) EOS % (test code = 0.0 % 713-8) BASO % (test code = 0.1 % 706-2) GRAN MAT x10^3(ANC) 20.65 10*3/uL 1.88-7.09 H (test code = 6814712609) IMM GRAN x10^3 (test 0.25 10*3/uL 0.00-0.06 H code = 9973458798) LYMPH x10^3 (test code 1.13 10*3/uL 1.32-3.29 L = 731-0) MONO x10^3 (test code 0.40 10*3/uL 0.33-0.92 = 742-7) EOS x10^3 (test code = <0.03 0.03-0.39 L 711-2) BASO x10^3 (test code 0.03 10*3/uL 0.01-0.07 = 704-7) Lab Interpretation Abnormal (test code = 32440-3) [facility] WITH [id number] 07:37:26 Test Item Value Reference Range Interpretation [...] RDW-SD (test code = 47.4 fL 39.0-49.9 88125-6) RDW-CV (test code = 14.6 % 12.0-15.5 788-0) PLT (test code = See_Comment [Automated 777-3) message] The system which generated this result transmit britney reference range : 166 - 358 10*3/ ?L. The reference range was not u sed to interpret th is result as normal/abnormal . MPV (test code = 11.1 fL 9.5-12.9 60284-2) NRBC/100 WBC (test See_Comment [Automat ed code = 1993030169) message] The system which generated this result transmit britney reference range : 0.0 - 10.0 /100 WBCs. The reference range was not used to interpret this result as normal/abnormal . NRBC x10^3 (test code <0.01 See_Comment [Auto mated = 2942156976) message] The system which generated this result transmit britney reference range : 10*3/?L. The reference range was not used to interpret this result as normal/abnormal . GRAN MAT (NEUT) % 92.0 % (test code = 770-8) IMM GRAN % (test code 1.10 % = 6192162038) LYMPH % (test code = 5.0 % 736-9) MONO % (test code = 1.8 % 5905-5) EOS % (test code = 0.0 % 713-8) BASO % (test code = 0.1 % 706-2) GRAN MAT x10^3(ANC) 20.65 10*3/uL 1.88-7.09 H (test code = 8559978562) IMM GRAN x10^3 (test 0.25 10*3/uL 0.00-0.06 H code = 9438151732) LYMPH x10^3 (test code 1.13 10*3/uL 1.32-3.29 L = 731-0) MONO x10^3 (test code 0.40 10*3/uL 0.33-0.92 = 742-7) EOS x10^3 (test code = <0.03 0.03-0.39 L 711-2) BASO x10^3 (test code 0.03 10*3/uL 0.01-0.07 = 704-7) Lab Interpretation Abnormal (test code = 13380-0) [facility]CA2[facility]-10-15 07:28:14 Test Item Value Reference Range Interpretation Comments PH (test code = 2) 7.35-7.45 PCO2 (test code = See_Comment [Automat ed message] 4500723087) The system [employer] generated this result transmit britney reference range : 35 - 45 mmHg. The reference range was not used to interpret this result as normal/abnormal . PO2 (test code = See_Comment H [Automated message] 9267699009) The system [employer] generated this result transmit britney reference range : 80 - 100 mmHg. The reference range was not used to interpret this result as normal/abnormal . HCO3 (test code = See_Comment [Automate d message] 7116446541) The system [employer] generated this result transmit britney reference range : 22 - 26 mEq/L. The reference range was not used to interpret this result as normal/abnormal . BE (test code = See_Comment [Automated message] 3368302617) The system [employer] generated this result transmit britney reference range : -3.0 - 3.0 mEq/ L. The reference r nicholas was not used to interpret this result as normal/abnormal . THB (test code = 13.1 g/dL 12.0-16.0 6687877983) %O2HB (test code = 98.7 % 94.0-99.0 0138711396) %COHB ART (test code = 0.4 % 0.0-1.5 7205139959) %METHB ART (test code = 0.0 % 0.4-1.5 L 0026976754) VOL%O2 ART (test code = 18.5 % 15.0-23.0 QUES 6206439993) NA (test code = 138 mmol/L 135-145 7274128214) K+ (test code = 5.0 mmol/L 3.5-5.0 8509489722) AC CA IONZ (test code = 4.50 mg/dL 4.50-5.30 3825909404) GLUCOSE (test code = 138 mg/dL 70-110 H [id number]) Lab Interpretation Abnormal (test code = 88598-5) [facility]-15 07:28:14 Test Item Value Reference Range Interpretation Comments PH (test code = 2) 7.35-7.45 PCO2 (test code = See_Comment [Automat ed message] [id number]) The system [employer] generated this result transmit britney reference range : 35 - 45 mmHg. The reference range was not used to interpret this result as normal/abnormal . PO2 (test code = See_Comment H [Automated message] [id number]) The system [employer] generated this result transmit britney reference range : 80 - 100 mmHg. The reference range was not used to interpret this result as normal/abnormal . HCO3 (test code = See_Comment [Automate d message] [id number]) The system [employer] generated this result transmit britney reference range : 22 - 26 mEq/L. The reference range was not used to interpret this result as normal/abnormal . BE (test code = See_Comment [Automated message] [id number]) The system [employer] generated this result transmit britney reference range : -3.0 - 3.0 mEq/ L. The reference r nicholas was not used to interpret this result as normal/abnormal . THB (test code = 13.1 g/dL 12.0-16.0 [id number]) %O2HB (test code = 98.7 % 94.0-99.0 [id number]) %COHB ART (test code = 0.4 % 0.0-1.5 [id number]) %METHB ART (test code = 0.0 % 0.4-1.5 L [id number]) VOL%O2 ART (test code = 18.5 % 15.0-23.0 QUES [id number]) NA (test code = 138 mmol/L 135-145 [id number]) K+ (test code = 5.0 mmol/L 3.5-5.0 [id number]) AC CA IONZ (test code = 4.50 mg/dL 4.50-5.30 [id number]) GLUCOSE (test code = 138 mg/dL 70-110 H [id number]) Lab Interpretation Abnormal (test code = 47552-4) [facility]
[2021-11-08] MEDS ORDERED: MEPERIDINE HCL 25 MG/ML SYR ONE (17:10)
[2021-11-08] MEDS ORDERED: NA CHLORIDE 0.9% 1,000 ML ONE (17:10)
--- NOTE | 2021-11-08 17:58 | EDPHYS ---
Physician Documentation [facility] Name: Nancie Ordonez Age: 50 yrs Sex: Female : 1970 Arrival Date: 11/08/2021 Time: 16:37 Bed 13 Private MD: ED Physician Humphrey Sandoval HPI: 11/08 17:01 This 50 yrs old Black Female presents to ER via Wheelchair with complaints of body rn aches. 17:01 Pt reports recent admission to this hospital for bilateral pneumonia, has been having rn body aches since then, would be given morphine while in hospital for body aches and would feel better, discharged with abx, breathing better, but reports still having body aches. No new fever. No new symptoms. Overall feels better. . Onset: The symptoms/episode began/occurred 1 week(s) ago. Severity of symptoms: At their worst the symptoms were moderate in the emergency department the symptoms are unchanged. The patient has not experienced similar symptoms in the past. The patient has been recently been admitted at [facility]. [employer]: 16:47 LMP N/A - Depo-provera ap3 Historical: - Allergies: 16:46 Ibuprofen; ap3 16:46 Naproxen; ap3 - PMHx: 16:46 Arthritis; GERD; Gout; Hypertension; ap3 - PSHx: 16:46 hernia repair; Neck sx; Right arm injury; ap3 - Immunization history:: Client reports receiving the 2nd dose of the Covid vaccine, Flu vaccine is up to date. - Social history:: Smoking status: Patient denies any tobacco usage or history of. - Family history:: not pertinent. - Hospitalizations: : The patient was recently seen at [facility]. ROS: 17:01 Constitutional: Negative for fever, chills, and weight loss, + body aches and myalgias rn Eyes: Negative for injury, pain, redness, and discharge, Neck: Negative for injury, pain, and swelling, Cardiovascular: Negative for chest pain, palpitations, and edema, Respiratory: Negative for shortness of breath, cough, wheezing, and pleuritic chest pain, Abdomen/GI: Negative for abdominal pain, nausea, vomiting, diarrhea, and constipation, MS/Extremity: Negative for injury and deformity, Skin: Negative for injury, rash, and discoloration, Neuro: Negative for headache, weakness, numbness, tingling, and seizure. Exam: 17:01 Constitutional: This is a well developed, well nourished patient who is awake, alert, rn and in no acute distress. Ambulatory to room without difficulty or distress. Appears anxious. Head/Face: Normocephalic, atraumatic. Eyes: Periorbital areas with no swelling, redness, or edema. Cardiovascular: tachcyardic, regular Respiratory: Speaking full sentences, unlabored. No increased work of breathing, no retractions or nasal flaring. Abdomen/GI: Soft, non-tender Skin: Warm, dry with normal turgor. Normal color with no rashes, no lesions, and no evidence of cellulitis. MS/ Extremity: Pulses equal, no cyanosis. Neurovascular intact. Full, normal range of motion. Equal circumference. Neuro: Awake and alert, GCS 15, oriented to person, place, time, and situation. Cranial nerves II-XII grossly intact. Motor strength 5/5 in all extremities. Sensory grossly intact. Cerebellar exam normal. Normal gait. Vital Signs: 16:42 BP 122 / 81; Pulse 115; Resp 17; Temp 98.1; Pulse Ox 98% on R/A; Weight 86.18 kg; ap3 Height 5 ft. 3 in. (160.02 cm); 17:29 BP 136 / 91; Pulse 110; Resp 20; Pulse Ox 99% on R/A; ss7 18:28 BP 135 / 90; Pulse 101; Resp 18; Pulse Ox 98% ; ss7 16:42 Body Mass Index 33.66 (86.18 kg, 160.02 cm) ap3 MDM: 16:51 Patient medically screened. 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 Data reviewed: vital signs, nurses notes, old medical records, radiologic studies, plain films, and as a result, I will discharge patient. Counseling: I had a detailed discussion with the patient and/or guardian regarding: the historical points, exam findings, and any diagnostic results supporting the discharge/admit diagnosis, radiology results, the need for outpatient follow up, to return to the emergency department if symptoms worsen or persist or if there are any questions or concerns that arise at home. Response to treatment: the patient's symptoms have mildly improved after treatment, and as a result, I will discharge patient. Special discussion: I discussed with the patient/guardian in detail that at this point there is no indication for admission to the hospital. It is understood, however, that if the symptoms persist or worsen the patient needs to return immediately for re-evaluation. ED course: NO oxygen requirement, reports overall feeling better, denies dyspnea, CXR shows mild improvement, will dc home. Patient here multiple times in past for chronic pain and dependence, states has tramadol at home, will not prescribe anything new.. 11/08 16:51 Order name: XRAY Chest (1 view); Complete Time: 18:18 rn 11/08 17:01 Order name: IV Start; Complete Time: 17:25 rn Administered Medications: 17:20 Drug: NS 0.9% 1000 ml Route: IV; Rate: 1000 ml; Site: right upper arm; ss7 17:27 Drug: Demerol (meperidine) 25 mg Route: IVP; Site: right upper arm; ss7 Disposition Summary: 11/08/21 17:57 Discharge Ordered Location: Home rn Problem: an ongoing problem rn Symptoms: have improved rn Condition: Stable rn Diagnosis - Myalgia rn Followup: rn - With: Private Physician - When: As needed - Reason: Recheck today's complaints, Re-evaluation by your physician Discharge Instructions: - Discharge Summary Sheet rn - Muscle Pain, Adult rn Forms: - Medication Reconciliation Form rn - Thank You Letter rn - 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
--- NOTE | 2021-11-08 17:58 | ER ---
Nurse's Notes [facility] Name: Nancie Ordonez Age: 50 yrs Sex: Female : 1970 Arrival Date: 11/08/2021 Time: 16:37 Bed 13 Private MD: Diagnosis: Myalgia Presentation: 11/08 16:42 Chief complaint: Patient states: she has had a difficult time breathing. Patient states ap3 she has been feeling short of breath since Oct.12, of which she states has gotten worse today. Patient reports that her whole body hurts today. She states she had a recent ICU stay for pneumonia, and is on home oxygen with 2liters. Patient is currently 98% on room air at this time in triage. Coronavirus screen: muscle pain, shortness of breath, Client presents with at least one sign or symptom that may indicate coronavirus-19. Standard/surgical mask placed on the client. Provider contacted for isolation considerations. Ebola Screen: No symptoms or risks identified at this time. Initial Sepsis Screen: Does the patient meet any 2 criteria? HR > 90 bpm. Does the patient have a suspected source of infection? No. Patient's initial sepsis screen is negative. Risk Assessment: Do you want to hurt yourself or someone else? Patient reports no desire to harm self or others. Onset of symptoms was October 09, 2021. 16:42 Method Of Arrival: Wheelchair ap3 16:42 Acuity: DEEPALI 3 ap3 Triage Assessment: 16:46 General: Appears in no apparent distress. Behavior is calm, cooperative, appropriate ap3 for age. Pain: Complains of pain in generalized body aches. Neuro: Level of Consciousness is awake, alert, obeys commands, Oriented to person, place, time, situation, Appropriate for age. Respiratory: Reports shortness of breath Airway is patent Respiratory effort is even, unlabored, Onset: The symptoms/episode began/occurred gradually, the patient has mild shortness of breath. [employer]: 16:47 LMP N/A - Depo-provera ap3 Historical: - Allergies: 16:46 Ibuprofen; ap3 16:46 Naproxen; ap3 - PMHx: 16:46 Arthritis; GERD; Gout; Hypertension; ap3 - PSHx: 16:46 hernia repair; Neck sx; Right arm injury; ap3 - Immunization history:: Client reports receiving the 2nd dose of the Covid vaccine, Flu vaccine is up to date. - Social history:: Smoking status: Patient denies any tobacco usage or history of. - Family history:: not pertinent. - Hospitalizations: : The patient was recently seen at [facility]. Screenin:46 Abuse screen: Denies threats or abuse. Nutritional screening: No deficits noted. ap3 Tuberculosis screening: No symptoms or risk factors identified. 16:47 Fall Risk No fall in past 12 months (0 pts). ap3 Assessment: 17:28 General: Appears in no apparent distress. uncomfortable, Behavior is calm, cooperative, ss7 appropriate for age. Pain: Complains of pain in GENERALIZED. Neuro: Level of Consciousness is awake, alert, obeys commands, Oriented to person, place, time, situation. Cardiovascular: Heart tones S1 S2 Rhythm is sinus tachycardia. Respiratory: Airway is patent Breath sounds are clear bilaterally. GI: No deficits noted. : No deficits noted. EENT: No deficits noted. Derm: No deficits noted. Musculoskeletal: Reports pain in GENERALIZED BODY. Vital Signs: 16:42 BP 122 / 81; Pulse 115; Resp 17; Temp 98.1; Pulse Ox 98% on R/A; Weight 86.18 kg; ap3 Height 5 ft. 3 in. (160.02 cm); 17:29 BP 136 / 91; Pulse 110; Resp 20; Pulse Ox 99% on R/A; ss7 18:28 BP 135 / 90; Pulse 101; Resp 18; Pulse Ox 98% ; ss7 16:42 Body Mass Index 33.66 (86.18 kg, 160.02 cm) ap3 ED Course: 16:37 Patient arrived in ED. kz 16:45 Triage completed. ap3 16:47 Arm band placed on left wrist. ap3 16:50 Toma De La Torre, NICCI is Primary Nurse. ss7 16:51 Humphrey Sandoval MD is Attending Physician. rn 17:30 Patient has correct armband on for positive identification. Side rails up X2. Door ss7 closed. Noise minimized. Lights dimmed. 17:30 No provider procedures requiring assistance completed. Inserted saline lock: 22 gauge ss7 in right ,using aseptic technique. SHOULDER. 17:48 XRAY Chest (1 view) In Process Unspecified. EDMS 18:29 IV discontinued, intact, bleeding controlled, No redness/swelling at site. Pressure ss7 dressing applied. Administered Medications: 17:20 Drug: NS 0.9% 1000 ml Route: IV; Rate: 1000 ml; Site: right upper arm; ss7 17:27 Drug: Demerol (meperidine) 25 mg Route: IVP; Site: right upper arm; ss7 Outcome: 17:57 Discharge ordered by . rn 18:28 Discharged to home ambulatory, with significant other. ss7 18:28 Condition: good 18:28 Discharge instructions given to patient, significant other, Instructed on discharge instructions, follow up and referral plans. Demonstrated understanding of instructions, follow-up care. 18:29 Patient left the ED. ss7 Signatures: Dispatcher [employer] EDHumphrey Ferrera MD MD rn Prokisch, Amanda, RN RN ap3 Smith, Shana, RN RN ss7 Aline Kinney
--- NOTE | 2021-11-08 18:13 | RAD REPORT ---
EXAM DESCRIPTION: Anton Single View11/08/2021 5:49 pm CLINICAL HISTORY: Shortness breath COMPARISON: November 04, 2021 FINDINGS: [id number] left lung opacities without obvious change Right lung appears grossly clear Heart is normal size IMPRESSION: Mild to moderate left lung opacities probably pneumonia
[2021-11-08 19:14] VITALS: TEMP 98.1
[2021-11-08 19:17] VITALS: BP 135/90; O2SAT 98
== END 2021-11-08 18:29 | disposition home or self-care (01) ==
LOC: ER 16:26
DX: M79.10 Myalgia, unspecified site (principal); I10 Essential (primary) hypertension; Z88.6 Allergy status to analgesic agent
CPT/HCPCS: 71045; J2175; J7030; 96374; 99284

== ENCOUNTER 2021-11-15 20:35 | Emergency (ER) | payer OTHER ==
--- OUTSIDE RECORDS SUMMARY | 2021-11-15 20:45 | XMS REPORT | Continuity of Care Document ---
:1970 Author Organization [facility] t Address [address] [place] [address] Care Team Providers Name Role Phone [facility] Primary Care Physician Unavailable TEQWIMUAH Attending Clinician Unavailable Chapin PAUL Attending Clinician Teqwimuah DO Attending Clinician Doctor Unassigned, Name Attending Clinician Unavailable Evelin GRAJEDA, L Attending Clinician Unavailable REHANA Attending Clinician Unavailable Ilan YI Attending Clinician Josie YI Attending Clinician Tal YI Attending Clinician Rehana YI Attending Clinician Sunday Olivarez MD Attending Clinician TEQWIMUAAndrew Admitting Clinician Unavailable Teqwimuaandrew DO Admitting Clinician TAL Admitting Clinician Unavailable Tal YI Admitting Clinician Payers Payer Name Policy Type Policy Number Effective Date Expiration Date Anjum ESTESR FROM [id number] 2021 [facility] 00:00:00 Problems Condition Condition Condition Status Onset Resolution Last Treating Co mments Source Name Details Category Date Date Treatment Clinician Date Sepsis Sepsis Disease Active Univers 3-09 ity of 00:00: [place] 00 Medical Branch Morbid Morbid Disease Active Univers obesity obesity 2-14 ity of with body [place] mass index mass index 00 Me dical of of Branch 40.0-49.9 40.0-49.9 Obesity Obesity Disease Active Univers (BMI (BMI 2-12 ity of 30-39.9) 30-39.9) 00:00: [place] 00 Medical Branch Acute Acute Disease Active Univers hypoxemic hypoxemic 2-12 ity of respirator [place] failure y failure 00 [facility] dayna Branch Depo-Prove Depo-Prove Disease Active [...] y Drug) naproxen DA Active [facility] 2-27 [place] 00:00: [facility] Naproxen Propensi Active Swelling Swelling Un guillermina ty to 03-11 of tongue ity of adverse 00:00: [place] reaction 00 Medical s to Branch drug NAPROXEN DRUG Active High Swelling Univer s INGREDI 03-11 ity of 00:00: [place] 00 Medical Branch Social History Social Habit Start Date Stop Date Quantity Comments Source History SDUT University o f Alcohol Std Drinks [place] [facility] History [facility] University o f Alcohol Binge [place] Medic al Branch Exposure to Not sure University of SARS-CoV-2 (event) [place] [facility] History [facility] University o f Alcohol Frequency [facility] edical Branch Alcohol intake 2021-11-10 2021-11-10 Current drinker Unive rsity of 00:00:00 00:00:00 of alcohol [place] [facility] (finding) Branch Education 2021-10-15 2021-10-15 12 University of 00:00:00 00:00:00 [facility] Tobacco Comment 2021-10-15 2021-10-15 30 years ago Univers ity of 00:00:00 00:00:00 [facility] Alcohol Comment 2016-12-14 2016-12-14 infrequent - Univers ity of 00:00:00 00:00:00 family parties, [place] Med ical wine, 12 oz/time Branch Cigarettes smoked 2016-12-14 2016-12-14 Univers ity of current (pack per 00:00:00 00:00:00 [facility] ) - Reported Branch Cigarette 2016-12-14 2016-12-14 University of pack-years 00:00:00 00:00:00 [facility] Tobacco use and 2016-12-14 2016-12-14 Never used Universit y of exposure 00:00:00 00:00:00 [facility] History of tobacco 2001-12-14 Cigarette Smoker University of use 00:00:00 [facility] Sex [birth year] At [birth year] Universit y of 00:00:00 00:00:00 [facility] Smoking Status Start Date Stop Date Source Former smoker 2016-12-14 00:00:00 2016-12-14 00:00:00 Universi ty of [facility] Medications Ordered Filled Start Stop Current Ordering Indication Dosage Frequency Signature Comments Components Source Medication Medication Date Date Medication? Clinician (SIG) Name Name predniSONE Yes 30mg 30 mg, Unive rs (DELTASONE) 3-12 Oral, ity of tablet 30 15:00: DAILY, [place] mg 00 First dose Medical (after Branch last modificati on) on 11/12/21 at 0900, Until Discontinu ed, Routine piperacilli Yes 3.375g 3.375 g, Univers n-tazobacta 3-11 IV ity of m (ZOSYN) 23:30: [place] 3.375 g in 00 Q8H ABX, Medic al NaCl 0.9% First dose Bran ch (NS) 50 mL on Fri MINI-BAG 11/11/21 at 1730, Until Discontinu ed, Administer over 4 Hours, 50 mL
Reas on for Anti-Infec tive: Empiric Therapy for Suspected Infection< br>Empi leandro Therapy Site: Respirator y
Durat ion of therapy: 72 hours lurasidone Yes Take by Uni vers HCl (LATUDA 3-11 mouth. ity of ORAL) 17:32: [place] 07 Medical Branch KCL 2021-0 202- No 20meq 20 mEq, Univers (KLOR-CON 11-11-11 Oral, ity of M20) tablet 02:00: 02:20 ONCE, 1 [place] 20 mEq 00 :00 dose, On Medical Nicole Branch 11/10/21 at 2000, Routine predniSONE Yes [id number] 20mg Take 1 Univers 20 mg -11 tablet by ity of tablet 00:00: mouth [place] 00 daily. [facility] Branch piperacilli 2021- No 3.375g 3.375 g, Univers n-tazobacta 11-10 IV ity of m (ZOSYN) 22:00: 21:01 [place]back, [place] 3.375 g in 00 :00 Q8H ABX, Medic al NaCl 0.9% First dose Bran ch (NS) 100 mL on Nicole VIAL-MATE 11/10/21 at 1600, Until Discontinu ed, Administer over 4 Hours, 100 mL
Reas on for Anti-Infec tive: Empiric Therapy for Suspected Infection< br>Empi leandro Therapy Site: Respirator y
Durat ion of therapy: 72 hours enoxaparin Yes 40mg 40 mg, Unive rs (LOVENOX) 3-10 Subcutaneo ity of injection 15:00: [place], DAILY, [place] 40 mg 00 First dose Medical on [place] Branch 11/10/21 at 0900, Until Discontinu ed, Routine hydroCHLORO Yes 12.5mg 12.5 mg, Univers thiazide 3-10 Oral, ity of (ESIDRIX) 15:00: DAILY, [place] capsule 00 First dose Medica l 12.5 mg on [place] Branch 11/10/21 at 0900, Until Discontinu ed, Routine amLODIPine Yes 10mg 10 mg, Unive rs (NORVASC) 3-10 Oral, ity of tablet 10 15:00: DAILY, [place] mg 00 First dose Medical on [facility] 11/10/21 at 0900, Until Discontinu ed, Routine predniSONE No 40mg 40 mg, Univ ers (DELTASONE) 3-10 03-11 Oral, ity of tablet 40 15:00: 17:05 DAILY, [place] mg 00 :49 First dose Medical on [facility] 11/10/21 at 0900, Until Discontinu ed, Routine docusate Yes 100mg 100 mg, Unive rs (COLACE) 3-10 Oral, BID, ity o f capsule 100 14:00: First dose [place] mg 00 on [facility] 11/10/21 at Branch 0800, Until Discontinu ed, Routine busPIRone Yes 5mg 5 mg, Univers (BUSPAR) 3-10 Oral, BID, ity o f tablet 5 mg 14:00: First dose [place] 00 on [facility] 11/10/21 at Branch 0800, Until Discontinu ed, Routine lurasidone Yes 20mg 20 mg, Unive rs (LATUDA) 3-10 Oral, ity of tablet 20 13:30: QAM-0730, [place] as mg 00 First dose Medical on [facility] 11/10/21 at 0730, Until Discontinu ed morpHINE Yes 2mg 2 mg, Slow Uni vers injection 2 3-10 IV Push, ity of mg 07:05: Q4HPRN, [place] 58 Starting Medical on [facility] 11/10/21 at 0105, Until Discontinu ed, Routine, Pain (scale 7-10) ondansetron Yes 4mg 4 mg, Slow Univers (ZOFRAN 3-10 IV Push, ity of (PF)) 05:19: Q6HPRN, [place] injection 4 35 Starting Medi dayna mg on Sun Branch 11/09/21 at 2319, Until Discontinu ed, Routine, Nausea and Vomiting (N/V) HYDROcodone 0 2021- Yes 1{tbl} 1 tablet, Univers -acetaminop 3-10 03-12 Oral, ity of hen (NORCO 05:19: 05:18 Q6HPRN, [place] as 5) 5-325 mg 30 :30 Starting Medi dayna tablet 1 on Sun Branch tablet 11/09/21 at 2319, Until 11/11/21 at 2318, Routine, Pain (scale 4-6) acetaminoph Yes 650mg 650 mg, Un guillermina en 3-10 Oral, ity of (TYLENOL) 05:19: Q6HPRN, [place] tablet 650 28 Starting Medic al mg on Sun Branch 11/09/21 at 2319, Until Discontinu ed, Routine, Pain (scale 1-3) albuterol 0 Yes 2{puff} 2 Puff, Un guillermina (VENTOLIN) 3-10 Inhalation ity of inhaler 2 05:17: , Q6HPRN, [place] as Puff 52 Starting Medical on Sun Branch 11/09/21 at 2317, Until Discontinu ed, Routine, Wheezing, Shortness of Breath iopamidol 2021- No [id number] 100mL 100 mL, Univers (ISOVUE 11-10 Intravenou ity of 370-500 mL) 04:43: 04:44 s, ONCE, 1 [place] injection 00 :00 dose, On Medica l 100 mL Sun11/09/21 Branch at 2300, Routine morpHINE 2021- No 4mg 4 mg, Slow Un guillermina injection 4 11-10 IV Push, ity of mg 03:45: 02:57 ONCE, 1 [place] 00 :00 dose, On Medical Sun11/09/21 Branch at 2145, SE piperacilli 2021- No 3.375g 3.375 g, Univers n-tazobacta 11-10 IV ity of m (ZOSYN) 03:45: 05:33 Piggyback, [place] 3.375 g in 00 :00 ONCE, 1 Medica l NaCl 0.9% dose, On Branch (NS) 50 mL 11/09/21 MINI-BAG at 2145, Administer over 30 Minutes, 50 mL
R annia for Anti-Infec tive: Documented Infection< br>Documen britney Infection Site: HEENT
D uration of Therapy: Other (see Comments) NaCl 0.9% 2021- No 1000mL at 999 Uni vers (NS) bolus 3-10 03-10 mL/hr, ity of infusion 03:45: 05:33 1,000 mL, [place] as 1,000 mL 00 :00 IV Medical Infusion, Branch ONCE, 1 dose, On Sun11/09/21 at 2145, SE ondansetron 2021- No 4mg 4 mg, Slow Univers (ZOFRAN 3-10 03-10 IV Push, ity of (PF)) 03:00: 01:59 ONCE, 1 [place] injection 4 00 :00 dose, On Medi dayna mg Sun11/09/21 Branch at 2100, SE morpHINE 2021- No 4mg 4 mg, Slow Un guillermina injection 4 3-10 03-10 IV Push, ity of mg 03:00: 01:58 ONCE, 1 [place] 00 :00 dose, On Medical Sun11/09/21 Branch at 2100, STAT albuterol Yes 2.5mg 2.5 mg, Univ ers (PROVENTIL) 3-10 Inhalation it y of 2.5 mg /3 02:00: , QID, [place] mL (0.083 00 First dose Medi dayna %) on Sun Branch nebulizer 11/09/21 at solution 2000, 2.5 mg Until Discontinu ed, Routine ipratropium Yes .5mg 0.5 mg, Uni vers (ATROVENT) 3-10 Inhalation ity of 0.02 % 02:00: , QID, [place] nebulizer 00 First dose Medi dayna solution on Sun Branch 0.5 mg 11/09/21 at 2000, Until Discontinu ed, Routine hydroCHLORO 2021-0 Yes [id number] 12.5mg Take 1 Univers thiazide 2-22 capsule by ity o f 12.5 mg 00:00: mouth [place] capsule 00 daily. [facility] Branch hydroCHLORO 2021-0 Yes [id number] 12.5mg Take 1 Univers thiazide 2-22 capsule by ity o f 12.5 mg 00:00: mouth [place] capsule 00 daily. [facility] Branch hydroCHLORO 2021-0 Yes [id number] 12.5mg Take 1 Univers thiazide 2-22 capsule by ity o f 12.5 mg 00:00: mouth [place] capsule 00 daily. [facility] Branch hydroCHLORO 0 Yes [id number] 12.5mg Take 1 Univers thiazide 2-22 capsule by ity o f 12.5 mg 00:00: mouth [place] capsule 00 daily. Medical Branch hydroCHLORO 0 Yes [id number] 12.5mg Take 1 Univers thiazide 2-22 capsule by ity o f 12.5 mg 00:00: mouth [place] capsule 00 daily. Medical Branch hydroCHLORO 2021-0 2021- No [id number] 12.5mg Take 1 Univers thiazide 2-22 02-21 capsule by ity of 12.5 mg 00:00: 00:00 mouth [place] capsule 00 :00 daily for Medical 30 days. Branch hydroCHLORO 2021-0 2021- No [id number] 12.5mg Take 1 Univers thiazide 2-22 02-21 capsule by ity of 12.5 mg 00:00: 00:00 mouth [place] capsule 00 :00 daily for Medical 30 days. Branch lurasidone Yes Take by Uni vers HCl (LATUDA 2-21 mouth. ity of ORAL) 17:53: [address] lurasidone Yes Take by Uni vers HCl (LATUDA 2-21 mouth. ity of ORAL) 17:53: [address] lurasidone Yes Take by Uni vers HCl (LATUDA 2-21 mouth. ity of ORAL) 17:53: [address] lurasidone Yes Take by Uni vers HCl (LATUDA 2-21 mouth. ity of ORAL) 10:59: [address] Branch zolpidem 2021-0 2021- No 5mg 5 mg, Univers (AMBIEN) 2-24 10-21 Oral, ity of tablet 5 mg 04:00: 03:07 ONCE, 1 [place] 00 :00 dose, On Medical Sun Branch 10/23/21 at 2200, Routine docusate 0 Yes [id number] 100mg Take 1 U nivers 100 mg 2-21 capsule by ity of capsule 00:00: mouth 2 (two) Medical times Branch daily. busPIRone 5 2021-0 Yes [id number] 5mg Take 1 Univers mg tablet 2-21 tablet by ity o f 00:00: mouth 2 (two) Medical times Branch daily. chlorhexidi 2021-0 Yes [id number] 15mL Swish and Univers ne 0.12 % 2-21 spit out ity of mouthwash 00:00: 15 mL 2 (two) Medical times Branch daily. albuterol 2-0 Yes [id number] 2{puff} Inhale 2 Univers 90 2-21 Puffs ity of mcg/actuati 00:00: every 6 [place] as on inhaler 00 (six) Medical hours as Branch needed for Wheezing or Shortness of Breath. predniSONE 2-0 Yes [id number] 40mg Take 2 Univers 20 mg 2-21 tablets by ity of tablet 00:00: mouth daily. Medical Branch docusate 2021-0 Yes [id number] 100mg Take 1 U nivers 100 mg 2-21 capsule by ity of capsule 00:00: mouth (two) Medical times Branch daily. busPIRone 5 2021-0 Yes [id number] 5mg Take 1 Univers mg tablet 2-21 tablet by ity o f 00:00: mouth (two) Medical times Branch daily. chlorhexidi 2021-0 Yes [id number] 15mL Swish and Univers ne 0.12 % 2-21 spit out ity of mouthwash 00:00: 15 mL (two) Medical times Branch daily. albuterol 2021-0 Yes [id number] 2{puff} Inhale 2 Univers 90 2-21 Puffs ity of mcg/actuati 00:00: every 6 [place] as on inhaler 00 (six) Medical hours as Branch needed for Wheezing or Shortness of Breath. predniSONE 2022-0 Yes [id number] 40mg Take 2 Univers 20 mg 2-21 tablets by ity of tablet 00:00: mouth daily. Medical Branch docusate 2022-0 Yes [id number] 100mg Take 1 U nivers 100 mg 2-21 capsule by ity of capsule 00:00: mouth (two) Medical times Branch daily. busPIRone 5 2-0 Yes [id number] 5mg Take 1 Univers mg tablet 2-21 tablet by ity o f 00:00: mouth (two) Medical times Branch daily. chlorhexidi 2-0 Yes [id number] 15mL Swish and Univers ne 0.12 % 2-21 spit out ity of mouthwash 00:00: 15 mL 2 (two) Medical times Branch daily. albuterol 2021-0 Yes [id number] 2{puff} Inhale 2 Univers 90 2-21 Puffs ity of mcg/actuati 00:00: every 6 [place] as on inhaler 00 (six) Medical hours as Branch needed for Wheezing or Shortness of Breath. predniSONE 2021-0 Yes [id number] 40mg Take 2 Univers 20 mg 2-21 tablets by ity of tablet 00:00: mouth daily. Medical Branch docusate 2021-0 Yes [id number] 100mg Take 1 U nivers 100 mg 2-21 capsule by ity of capsule 00:00: mouth (two) Medical times Branch daily. busPIRone 5 2021-0 Yes [id number] 5mg Take 1 Univers mg tablet 2-21 tablet by ity o f 00:00: mouth (two) Medical times Branch daily. chlorhexidi 2021-0 Yes [id number] 15mL Swish and Univers ne 0.12 % 2-21 spit out ity of mouthwash 00:00: 15 mL 2 (two) Medical times Branch daily. albuterol 2021-0 Yes [id number] 2{puff} Inhale 2 Univers 90 2-21 Puffs ity of mcg/actuati 00:00: every 6 [place] as on inhaler 00 (six) Medical hours as Branch needed for Wheezing or Shortness of Breath. docusate 2021-0 Yes [id number] 100mg Take 1 U nivers 100 mg 2-21 capsule by ity of capsule 00:00: mouth (two) Medical times Branch daily. albuterol 2021-0 Yes [id number] 2{puff} Inhale 2 Univers 90 2-21 Puffs ity of mcg/actuati 00:00: every 6 [place] as on inhaler 00 (six) Medical hours as Branch needed for Wheezing or Shortness of Breath. busPIRone 5 2021-0 Yes [id number] 5mg Take 1 Univers mg tablet 2-21 tablet by ity o f 00:00: mouth (two) Medical times Branch daily. chlorhexidi Yes [id number] 15mL Swish and Univers ne 0.12 % 10-24 spit out ity of mouthwash 00:00: 15 mL 2 [place] 00 (two) Medical times Branch daily. predniSONE 2021- Yes [id number] 40mg Take 2 Univers 20 mg 2-21 -24 tablets by ity of tablet 00:00: 04:59 mouth [place] 00 :00 daily for Medical 30 days. Branch predniSONE 2021- No [id number] 40mg Take 2 Univers 20 mg 2-21 03-11 tablets by ity of tablet 00:00: 00:00 mouth [place] 00 :00 daily. Medical Branch acetaminoph 2021- Yes [id number] 1{tbl} Take 1 U nivers en-codeine 10-24 tablet by ity of 300-30 mg 00:00: 05:59 mouth [place] tablet 00 :00 every 4 Medical (four) Branch hours as needed for Pain (scale 4-6) for up to 5 days. Indication s: acute pain acetaminoph 2021- Yes [id number] 1{tbl} Take 1 U nivers en-codeine 10-24 tablet by ity of 300-30 mg 00:00: 05:59 mouth [place] tablet 00 :00 every 4 Medical (four) Branch hours as needed for Pain (scale 4-6) for up to 5 days. Indication s: acute pain acetaminoph 2021- Yes [id number] 1{tbl} Take 1 U nivers en-codeine 10-24 tablet by ity of 300-30 mg 00:00: 05:59 mouth [place] tablet 00 :00 every 4 Medical (four) Branch hours as needed for Pain (scale 4-6) for up to 5 days. Indication s: acute pain busPIRone 5 2021- No [id number] 5mg Take 1 Univers mg tablet 10-24 tablet by ity of 00:00: 00:00 mouth 2 [place] 00 :00 (two) Medical times Branch daily for 30 days. chlorhexidi 2021- No [id number] 15mL Swish and Univers ne 0.12 % 10-24 spit out ity o f mouthwash 00:00: 00:00 15 mL 2 [place] 00 :00 (two) Medical times Branch daily for 7 days. albuterol 2021- No [id number] 2{puff} Inhale 2 Univers 90 10-24 Puffs ity of mcg/actuati 00:00: 00:00 every 6 [place] on inhaler 00 :00 (six) Medical hours as Branch needed for Wheezing or Shortness of Breath. predniSONE 2021- No [id number] 40mg Take 2 Univers 20 mg 10-24- tablets by ity of tablet 00:00: 00:00 mouth [place] 00 :00 daily for Medical 30 days. Branch busPIRone 5 2021- No [id number] 5mg Take 1 Univers mg tablet 10-24 tablet by ity of 00:00: 00:00 mouth 2 [place] 00 :00 (two) Medical times Branch daily for 30 days. chlorhexidi 2021- No [id number] 15mL Swish and Univers ne 0.12 % 10-24 spit out ity o f mouthwash 00:00: 00:00 15 mL 2 [place] 00 :00 (two) Medical times Branch daily for 7 days. phenoL Yes 1{spray 1 [place], Univ ers (SORE 2-20 } Oral, PRN, ity of THROAT 19:03: Starting [place] (PHENOL)) 59 on Sun Medical 1.4 % spray 10/23/21 at Br anch bottle 1 1303, [place] Until Discontinu ed, Routine, Sore throat phenoL Yes 1{spray 1 [place], Univ ers (SORE 2-20 } Oral, PRN, ity of THROAT 19:03: Starting [place] (PHENOL)) 59 on Sun Medical 1.4 % spray 10/23/21 at Br anch bottle 1 1303, [place] Until Discontinu ed, Routine, Sore throat zolpidem 2021- No 5mg 5 mg, Univers (AMBIEN) 10-23 Oral, ity of tablet 5 mg 04:00: 03:54 ONCE, 1 [place] 00 :00 dose, On Medical Sat Branch 10/22/21 at 2200, Routine methylpredn 2022-0 Yes 125mg 125 mg, Un guillermina isolone sod 2-19 Intravenou it y of succ 20:00: s, Q8H, [place] (SOLU-MEDRO 00 First dose Me dical L) (after Branch injection last 125 mg modificati on) on [facility] 10/22/21 at 1400, Until Discontinu ed, Routine methylpredn 2022-0 Yes 125mg 125 mg, Un guillermina isolone sod 2-19 Intravenou it y of succ 20:00: s, Q8H, [place] (SOLU-MEDRO 00 First dose Me dical L) (after Branch injection last 125 mg modificati on) on [facility] 10/22/21 at 1400, Until Discontinu ed, Routine hydroCHLORO 2022-0 Yes 12.5mg 12.5 mg, Univers thiazide 2-19 Oral, ity of (ESIDRIX) 15:30: DAILY, [place] capsule 00 First dose Medica l 12.5 mg on [facility] Branch 10/22/21 at 0930, Until Discontinu ed, Routine amLODIPine 2-0 Yes 10mg 10 mg, Unive rs (NORVASC) 2-19 Oral, ity of tablet 10 15:30: DAILY, [place] mg 00 First dose Medical on [facility] Branch 10/22/21 at 0930, Until Discontinu ed, Routine hydroCHLORO 2-0 Yes 12.5mg 12.5 mg, Univers thiazide 2-19 Oral, ity of (ESIDRIX) 15:30: DAILY, [place] capsule 00 First dose Medica l 12.5 mg on [facility] Branch 10/22/21 at 0930, Until Discontinu ed, Routine amLODIPine 2022-0 Yes 10mg 10 mg, Unive rs (NORVASC) 2-19 Oral, ity of tablet 10 15:30: DAILY, [place] mg 00 First dose Medical on [facility] Branch 10/22/21 at 0930, Until Discontinu ed, Routine acetaminoph 2022-0 Yes 650mg 650 mg, Un guillermina en 2-19 Oral, ity of (TYLENOL) 09:54: Q6HPRN, [place] tablet 650 49 Starting Medic al mg on [facility] Branch 10/22/21 at 0354, Until Discontinu ed, Routine, Pain (scale 1-3) acetaminoph 2022-0 Yes 650mg 650 mg, Un guillermina en 10-22 Oral, ity of (TYLENOL) 09:54: Q6HPRN, [place] tablet 650 49 Starting Medic al mg on Sat Branch 10/22/21 at 0354, Until Discontinu ed, Routine, Pain (scale 1-3) chlorhexidi 0 Yes 15mL 15 mL, Univ ers ne 10-22 Oral ity of (PERIDEX) 02:00: ([place] 0.12 % 00 Spit Out), Medical mouthwash BID, First Bran ch 15 mL dose on Sun10/21/21 at 1999, Until Discontinu ed, Routine chlorhexidi 0 Yes 15mL 15 mL, Univ ers ne 10-22 Oral ity of (PERIDEX) 02:00: ([place] 0.12 % 00 Spit Out), Medical mouthwash BID, First Bran ch 15 mL dose on Sun10/21/21 at 1999, Until Discontinu ed, Routine dexMEDEtomi 2021- No .2ug/kg 0.2-1.5 Univers dine 200 10-2119 /h mcg/kg/hr ity o f mcg in [...] 2021- No 5ug/kg/ 5-50 Un guillermina infusion 10-2119 min mcg/kg/min ity of 20:41: 15:22 ?99.8 kg [place] 59 :55 (2.994-29. Medical 94 mL/hr, Branch [...] 2021- No 25ug/h 25-200 U nivers (SUBLIMAZE) 10-21-19 mcg/hr ity o f STD 2,500 19:53: [...] 19:00: on Sun [place] 4 % (10/21/21 at Medica l mg/mL) 1300, Branch topical Until solution Discontinu ed, Routine, Intra-op lidocaine Yes PRN, Univers 4% 10-21 Starting ity of (XYLOCAINE) 19:00: on Sun [place] 4 % (40 10/21/21 at Medica l mg/mL) 1300, Branch topical Until solution Discontinu ed, Routine, Intra-op methylpredn No 125mg 125 mg, U nivers isolone sod 10-2119 Intravenou i ty of succ 19:00: 15:22 s, Q6H, [place] (SOLU-MEDRO 00 :22 First dose Me dical L) (after Branch injection last 125 mg modificati on) on Sun10/21/21 at 1300, Until Discontinu ed, Routine metoprolol 2-0 2022- No 5mg 5 mg, Slow Univers (LOPRESSOR) 18 18 IV Push, ity of injection 5 19:00: 19:00 ONCE, 1 [place] mg 00 :00 dose, On Medical Fri Branch 10/21/21 at 1300, Routine EPINEPHrine 2-0 Yes PRN, Univer s 1:1,000 (1 10-21 Starting ity o f mg/mL) 18:01: on Sun (ADRENALIN) 10/21/21 at Mt dical injection 1201, Branch Until Discontinu ed, Routine, Intra-op EPINEPHrine 2021-0 Yes PRN, Univer s 1:1,000 (1 10-21 Starting ity o f mg/mL) 18:01: on Sun (ADRENALIN) 10/21/21 at Mt dical injection 1201, Branch Until Discontinu ed, [...] -18 Starting ity of injection 17:01: on Sun10/21/21 at [facility] 1101, Branch Until Discontinu ed, Routine, Intra-op NaCl 0.9% 2-0 Yes PRN, Univers (NS) -18 Starting ity of injection 17:01: on Sun10/21/21 at [facility] 1101, Branch Until Discontinu ed, Routine, Intra-op morpHINE 2022-0 Yes 4mg 4 mg, Slow Uni vers injection 4 2-17 IV Push, ity of mg 23:22: Q4HPRN, [place] 52 Starting Medical on Nicole Branch 10/20/21 at 1722, Until Discontinu ed, Routine, Pain (scale 7-10) morpHINE 0 Yes 4mg 4 mg, Slow Uni vers injection 4 10-20 IV Push, ity of mg 23:22: Q4HPRN, [place] 52 Starting Medical on [place] Branch 10/20/21 at 1722, Until Discontinu ed, Routine, Pain (scale 7-10) methylpredn 2021- No 125mg 125 mg, U nivers isolone sod 10-20 Intravenou i ty of succ 20:00: 17:53 s, Q8H, [place] (SOLU-MEDRO 00 :24 First dose Me dical L) (after Branch injection last 125 mg modificati on) on Nicole 10/20/21 at 1400, Until Discontinu ed, Routine furosemide No 40mg 40 mg, Univ ers (LASIX) 10-20 Slow IV ity of injection 18:00: 18:19 Push, [place] 40 mg 00 :00 ONCE, 1 Medical dose, On Branch Nicole 10/20/21 at 1200, Routine pantoprazol 0 Yes 40mg 40 mg, Univ ers e 2-17 Oral, ity of (PROTONIX) 16:45: DAILY, [place] EC tablet 00 First dose Medi dayna 40 mg on Nicole Branch 10/20/21 at 1045, Until Discontinu ed, Routine pantoprazol 0 Yes 40mg 40 mg, Univ ers e 2-17 Oral, ity of (PROTONIX) 16:45: DAILY, [place] EC tablet 00 First dose Medi dayna 40 mg on [place] Branch 10/20/21 at 1045, Until Discontinu ed, Routine alum-mag 2021-0 Yes 30mL 30 mL, Univers hydroxide-s -17 Oral, ity of imeth 16:37: Q6HPRN, [place] (MAALOX 49 Starting Medical PLUS / on Nicole Branch MAG-AL 10/20/21 at PLUS) 1037, 200-200-20 Until mg/5 mL Discontinu suspension ed, 30 mL Routine, Indigestio n alum-mag 2021-0 Yes 30mL 30 mL, Univers hydroxide-s 2-17 Oral, ity of imeth 16:37: Q6HPRN, [place] (MAALOX 49 Starting Medical PLUS / on [facility] Branch MAG-AL 10/20/21 at PLUS) 1037, 200-200-20 Until mg/5 mL Discontinu suspension ed, 30 mL Routine, Indigestio n acetaminoph No 650mg 650 mg, U nivers en 10-20 Oral, ity of (TYLENOL) 16:16: 17:01 Q6HPRN, [place] tablet 650 26 :51 Starting Medic al mg on [facility] Branch 10/20/21 at 1016, Until Sun10/21/21 at 1101, Routine, Pain (scale 1-3) polyethylen 0 Yes 17g 17 g, Unive rs e glycol 2-17 Oral, ity of 3350 powder 15:00: DAILY, [place] 17 g 00 First dose Medical on [facility] 10/20/21 at 0900, Until Discontinu ed, Routine polyethylen 0 Yes 17g 17 g, Unive rs e glycol -17 Oral, ity of 3350 powder 15:00: DAILY, [place] 17 g 00 First dose Medical on [facility] Branch 10/20/21 at 0900, Until Discontinu ed, Routine docusate 2021-0 Yes 100mg 100 mg, Unive rs (COLACE) 2-17 Oral, BID, ity o f capsule 100 02:00: First dose [place] mg 00 on Sun10/19/21 at Branch 1999, Until Discontinu ed, Routine docusate 2021-0 Yes 100mg 100 mg, Unive rs (COLACE) 2-17 Oral, BID, ity o f capsule 100 02:00: First dose [place] mg 00 on Sun Medical 10/19/21 at Branch 1999, Until Discontinu ed, Routine hydralAZINE 2021-0 Yes 10mg 10 mg, Univ ers (APRESOLINE 2-16 Slow IV ity o f ) injection 11:35: Push, [place] 10 mg 36 Q4HPRN, Medical Starting Branch on Sun10/19/21 at 0535, Until Discontinu ed, Routine, systolic BP >180
In dication: Hypertensi ve Emergency hydralAZINE 2022-0 Yes 10mg 10 mg, Univ ers (APRESOLINE 16 Slow IV ity o f ) injection [...] 10 mg 00 :00 1 dose, On [facility] Sun Branch 10/17/21 at 1230, Routine methylPREDN No 125mg 125 mg, U nivers ISolone 10-17 Slow IV ity of sodium 18:00: 18:28 [place], Q6H, [place] succinate 00 :52 First dose Medi dayna (SOLU-MEDRO on Sun Branch L) 10/17/21 at injection 1200, 125 mg Until Discontinu ed, Routine thiamine No 100mg IV Univers (VITAMIN 10-17 Piggyback, ity of B1) 100 mg 17:45: 14:08 [place]ILY, 3 [place] in NaCl 00 :00 doses, Medical 0.9% (NS) First dose Bran ch piggyback on Sun10/17/21 at 1145, Last dose on Sun10/19/21 at 0900, 50 mL LORazepam 2021-0 202- No 1mg 1 mg, Slow U nivers (ATIVAN) - 02-16 IV Push, ity of injection 1 17:00: 17:33 Q4HPRN, [place] mg 00 :38 Starting Medical on Sun10/17/21 at 1100, Until Sun10/19/21 at 1133, Routine, Anxiety, Agitation ipratropium 2-0 Yes 3mL 3 mL, Unive rs -albuteroL -14 Inhalation ity of (DUONEB) 14:00: , Q4H, [place] 0.5 mg-3 00 First dose Medic al mg(2.5 mg on Sun Branch base)/3 mL 10/17/21 at nebulizer 0800, solution 3 Until mL Discontinu ed, Routine ipratropium 2021-0 Yes 3mL 3 mL, Unive rs -albuteroL 14 Inhalation ity of (DUONEB) 14:00: , Q4H, [place] 0.5 mg-3 00 First dose Medic al mg(2.5 mg on Sun Branch base)/3 mL 10/17/21 at nebulizer 0800, solution 3 Until mL Discontinu ed, Routine lidocaine 2021-0 2021- No 5mL 5 mL, Univer s 1% (PF) -14 -14 Subcutaneo ity o f (XYLOCAINE) 13:45: 13:45 us, ONCE, [place] injection 5 00 :00 1 dose, On Me dical mL Sun10/17/21 at 0745, Routine NaCl 0.9% 2021-0 Yes 10mL 10 mL, Univer s (NS) 2-14 Slow IV ity of injection 13:27: [place], PRN, [place] 10 [place] 33 Starting Medical on Sun10/17/21 at 0727, Until Discontinu ed, Routine, line maintenanc e NaCl 0.9% 2021-0 Yes 10mL 10 mL, Univer s (NS) 2-14 Slow IV ity of injection 13:27: [place], PRN, [place] 10 [place] 33 [place] Medical on Mon Branch 10/17/21 at 0727, Until Discontinu ed, Routine, line maintenanc e haloperidol No 5mg 5 mg, Slow Univers lactate 10-17 IV Push, ity of (HALDOL) 04:00: 03:03 ONCE, 1 [place] injection 5 00 :00 dose, On Medi dayna mg [place] Branch 10/16/21 at 2200, Routine busPIRone 0 Yes 5mg 5 mg, Univers (BUSPAR) 2-14 Oral, BID, ity o f tablet 5 mg 02:00: First dose 00 on [place] [facility] 10/16/21 at [place] 1999, Until Discontinu ed, Routine busPIRone 0 Yes 5mg 5 mg, Univers (BUSPAR) 2-14 Oral, BID, ity o f tablet 5 mg 02:00: First dose on [facility] 10/16/21 at [place] 1999, Until Discontinu ed, Routine methylpredn No 60mg 60 mg, Uni vers isolone sod 10-16 Slow IV ity of succ 23:00: 17:25 Push, Q8H, [place] (SOLU-MEDRO 00 :30 First dose Me dical L) on [facility] injection 10/16/21 at 60 mg 1700, Until Discontinu ed, Routine HYDROcodone No 1{tbl} 1 tablet, Univers -acetaminop 10-16 Oral, ity of hen (NORCO 19:49: 17:01 Q6HPRN, José Miguel as 5) 5-325 mg 46 :51 Starting Medi dayna tablet 1 on [facility] tablet 10/16/21 at 1349, Until 10/21/21 at 1101, Routine, Pain (scale 4-6) cefTRIAXone No 1000mg 1,000 mg, Univers (ROCEPHIN) 10-16 IV ity of 1,000 mg in 18:30: 18:56 Piggyback, [place] NaCl 0.9% 00 :00 Q24H ABX, Medic al (NS) 50 mL 5 doses, Branc h MINI-BAG First dose on [place] 10/16/21 at 1230, Last dose on Nicole [...] 16:47 Push, [place] 0.5 mg 49 :31 [id number], Medical Starting Branch on 10/15/21 at 1543, Until 10/17/21 at 1047, Routine, Anxiety iopamidol 2021- No [id number] 100mL 100 mL, Univers (ISOVUE 10-15 Intravenou ity o f 370-500 mL) 20:30: 19:21 s, ONCE, 1 [place] injection 00 :00 dose, On Medica l 100 mL Sat Branch 10/15/21 at 1430, Routine enoxaparin 2021- No 40mg 40 mg, Univ ers (LOVENOX) [...] Sat Branch 10/15/21 at 0830, Routine calcium 2021- No 1g 1 g, IV Univer s gluconate 1 10-15 Infusion, it y of g in NaCl 14:15: 13:37 ONCE, 1 [place] 50 mL 00 :00 dose, On Medical (ISO-OSM) Sat Branch RTU IV 10/15/21 at infusion 1 0815, g Routine insulin 2021- No 10U 10 Units, Univ ers regular 10-15 IV Push, ity of human 14:15: 13:37 ONCE, 1 Iman[place] (HUMULIN R) 00 :00 dose, On Medi dayna injection Sat Branch 10 Units 10/15/21 at 0815, Routine dextrose 50 No 50mL 50 mL, Uni vers % in water 10-15 Slow IV ity o f (D50W) 14:15: 13:37 Push, [place] injection 00 :00 ONCE, 1 Medical 50 [...] [place] IV 00 :17 IV Medical [facility] RTU 1,500 Q12H ABX, mg First dose on 10/15/21 at 0400, Until Discontinu ed, Administer over 90 Minutes
Reason for Anti-Infec tive: Documented Infection< br>Documen britney Infection Site: Blood
D uration of Therapy: 7 days ceFEPIme 2021- No 1000mg 1,000 mg, U nivers (MAXIPIME) 10-15 IV ity of 1,000 mg in 09:15: 16:12 [place], [place] NaCl 0.9% 00 :17 Q12H ABX, Medic al (NS) 50 mL First dose [facility] MINI-BAG on 10/15/21 at 0315, Until Discontinu ed, Administer over 30 Minutes, 50 mL
Reas on for Anti-Infec tive: Documented Infection< br>Documen britney Infection Site: Blood
D uration of Therapy: 7 days ipratropium Yes 3mL 3 mL, Unive rs -albuteroL 12 Inhalation ity of (DUONEB) 08:07: , QIDPRN, [place] 0.5 mg-3 12 Starting Medical mg(2.5 mg on Sat Branch base)/3 mL 10/15/21 at nebulizer 0207, solution 3 Until mL Discontinu ed, Routine, Wheezing, Shortness of Breath, Bronchospa sm ipratropium 0 Yes 3mL 3 mL, Unive rs -albuteroL -12 Inhalation ity of (DUONEB) 08:07: , QIDPRN, [place] 0.5 mg-3 12 Starting Medical mg(2.5 mg on Sat Branch base)/3 mL 10/15/21 at nebulizer 0207, solution 3 Until mL Discontinu ed, Routine, Wheezing, Shortness of Breath, Bronchospa sm morpHINE 0 2021- No 4mg 4 mg, Slow Un guillermina injection 4 10-15 0216 IV Push, ity of mg 08:04: 17:33 [...] % 00:00: [place] ointment 00 Medical Branch betamethaso Yes SMILEY EXT AA [...] ity of 00:00: [place] 00 Medical Branch DEXILANT 60 Yes TK 1 C PO U nivers mg capsule 9-28 QD ity of 00:00: [place] 00 Medical Branch DEXILANT 60 Yes TK 1 C PO U nivers mg capsule 9-28 QD ity of 00:00: 00 Medical Branch DEXILANT 60 Yes TK 1 C PO U nivers mg capsule 9-28 QD ity of 00:00: [place] 00 Medical Branch DEXILANT 60 Yes TK 1 C PO U nivers mg capsule 9-28 QD ity of 00:00: [place] 00 Medical Branch DEXILANT 60 Yes TK 1 C PO U nivers mg capsule 9-28 QD ity of 00:00: [place] 00 Medical Branch proMETHazin Yes TK 1 T PO U nivers e 25 mg 3-29 Q 12 H PRN ity of tablet 00:00: FOR 30 [place] 00 DAYS Medical Branch proMETHazin Yes TK 1 T [...] Q NIGHTLY ity of 00:00: Medical Branch HYDROcodone Yes 1{tbl} Take 1 Un guillremina -acetaminop 2-08 tablet by ity of hen 10-325 00:00: mouth. [place] mg tablet 00 Medical Branch HYDROcodone 2021- No 1{tbl} Take 1 U nivers -acetaminop 2-08 -21 tablet by it y of hen 10-325 00:00: 00:00 [place] mg tablet 00 :00 Medical Branch HYDROcodone 2021- No 1{tbl} Take 1 U nivers -acetaminop 2-08 - tablet by it y of hen 10-325 00:00: 00:00 mouth. [place] mg tablet 00 :00 Medical Branch betamethaso 2013-0 Yes [id number] Apply to Univers ne 2-13 area(s) ity of dipropionat 00:00: two (2) José Miguel as e 00 times Medical (DIPROLENE) daily. Branch 0.05 % cream betamethaso 2013-0 Yes [id number] Apply to Univers ne 2-13 area(s) ity of dipropionat 00:00: two (2) José Miguel as e 00 times Medical (DIPROLENE) daily. Branch 0.05 % cream betamethaso 2013-0 Yes [id number] Apply to Univers ne 2-13 area(s) ity of dipropionat 00:00: two (2) José Miguel as e 00 times Medical (DIPROLENE) daily. Branch 0.05 % cream betamethaso 2013-0 Yes [id number] Apply to Univers ne 2-13 area(s) ity of dipropionat 00:00: two (2) José Miguel as e 00 times Medical (DIPROLENE) daily. Branch 0.05 % cream betamethaso 2013-0 Yes [id number] Apply to Univers ne 2-13 area(s) ity of dipropionat 00:00: two (2) José Miguel as e 00 times Medical (DIPROLENE) daily. Branch 0.05 % cream betamethaso 2013-0 Yes [id number] Apply to Univers ne 2-13 area(s) ity of dipropionat 00:00: two (2) José Miguel as e 00 times Medical (DIPROLENE) daily. Branch 0.05 % cream Immunizations Ordered Filled Immunization Date Status Comments [facility] Immunization Name Name SARS-COV-2 COVID-19 2021-03-03 Completed Unive rsity of MODERNA VACCINE 00:00:00 [facility] Branch SARS-COV-2 COVID-19 2021-03-03 Completed Unive rsity of MODERNA VACCINE 00:00:00 [facility] Branch SARS-COV-2 COVID-19 2021-03-03 Completed Unive rsity of MODERNA VACCINE 00:00:00 [facility] Branch SARS-COV-2 COVID-19 2021-03-03 Completed Unive rsity of MODERNA VACCINE 00:00:00 [facility] SARS-COV-2 COVID-19 2021-03-03 Completed Unive rsity of MODERNA VACCINE 00:00:00 [facility] SARS-COV-2 COVID-19 2021-02-01 Completed Unive rsity of MODERNA VACCINE 00:00:00 [facility] SARS-COV-2 COVID-19 2021-02-01 Completed Unive rsity of MODERNA VACCINE 00:00:00 [facility] SARS-COV-2 COVID-19 2021-02-01 Completed Unive rsity of MODERNA VACCINE 00:00:00 [facility] SARS-COV-2 COVID-19 2021-02-01 Completed Unive rsity of MODERNA VACCINE 00:00:00 [facility] SARS-COV-2 COVID-19 2021-02-01 Completed Unive rsity of MODERNA VACCINE 00:00:00 [facility] Influenza Virus 2007-07-02 Completed Universit y of Vaccine 00:00:00 [facility] Influenza Virus 2007-07-02 Completed Universit y of Vaccine 00:00:00 [facility] Influenza Virus 2007-07-02 Completed Universit y of Vaccine 00:00:00 [facility] Influenza Virus 2007-07-02 Completed Universit y of Vaccine 00:00:00 [facility] Influenza Virus 2007-07-02 Completed Universit y of Vaccine 00:00:00 [facility] Influenza Virus 2007-07-02 Completed Universit y of Vaccine 00:00:00 [facility] Vital Signs Vital Name Observation Time Observation Value Comments Source Systolic blood 2021-11-11 18:12:00 152 mm[Hg] Univer sity of pressure [facility] Diastolic blood 2021-11-11 18:12:00 93 mm[Hg] Unive rsity of pressure [facility] Heart rate 2021-11-11 18:12:00 108 /min [facility] Body temperature 2021-11-11 18:12:00 37.06 Carleen Univ ersity of [facility] Respiratory rate 2021-11-11 18:12:00 20 /[facility] in 2021-11-11 18:12:00 95 /min University of Arterial blood by [facility] dayna Pulse oximetry Branch Body height 2021-11-10 17:22:00 160 cm Universi ty of [place] [facility] Body weight 2021-11-10 17:22:00 91 kg Universi ty of [place] [facility] BMI 2021-11-10 17:22:00 35.54 kg/m2 Universi ty [facility] [place] [facility] Systolic blood 2021-10-24 17:05:00 143 mm[Hg] Univer sity of pressure [place] [facility] Diastolic blood 2021-10-24 17:05:00 90 mm[Hg] Unive rsity of pressure [place] [facility] Heart rate 2021-10-24 17:05:00 103 /min Universi ty [facility] [place] [facility] Body temperature 2021-10-24 17:05:00 36.22 Carleen Univ ersity of [place] [facility] Respiratory rate 2021-10-24 17:05:00 18 /min Univ ersity of [place] [facility] Oxygen saturation in 2021-10-24 17:05:00 95 /min University of Arterial blood by [facility] Pulse oximetry Branch Body weight 2021-10-22 10:08:00 71.215 kg bed scale Universi ty [facility] [place] [facility] BMI 2021-10-22 10:08:00 28.72 kg/m2 [facility]i ty [facility] [place] [facility] Body height 2021-10-17 14:00:00 157.5 cm Universi ty [facility] [place] [facility] Systolic blood 2021-10-21 15:36:00 129 mm[Hg] Univer sity of pressure [place] [facility] Diastolic blood 2021-10-21 15:36:00 82 mm[Hg] Unive rsity of pressure [place] [facility] Heart rate 2021-10-21 15:36:00 100 /min Universi ty of [place] [facility] Respiratory rate 2021-10-21 15:36:00 20 /min Univ ersity of [place] [facility] Oxygen saturation in 2021-10-21 15:36:00 100 /min University of Arterial blood by [facility] Pulse oximetry Branch Body temperature 2021-10-21 13:07:00 36.83 Carleen Univ ersity of [place] [facility] Body height 2021-10-17 14:00:00 157.5 cm Universi ty [facility] [place] [facility] Body weight 2021-10-17 14:00:00 99.791 kg [facility] BMI 2021-10-17 14:00:00 28.72 kg/m2 [facility] Procedures Procedure Date / Time Performing Clinician Source Performed EKG-12 LEAD 2021-11-11 05:25:58 Sobeida Samson [facility] BASIC METABOLIC PANEL 2021-11-10 09:16:00 [facility] (NA, K, CL, CO2, GLUCOSE, Medica l Branch BUN, CREATININE, CA) CBC WITH DIFF 2021-11-10 09:16:00 [facility] LACTIC ACID WHOLE BLOOD 2021-11-10 09:16:00 Sobeida Samson [facility] CT CHEST PULMONARY 2021-11-10 04:49:21 Sobeida Samson [facility] ANGIOGRAM [facility] BLOOD CULTURE SCREEN 2021-11-10 03:58:00 Sobeida Samson [facility] BLOOD CULTURE WORKUP 2021-11-10 03:58:00 Sobeida Samson [facility] BLOOD CULTURE SCREEN 2021-11-10 02:56:00 Sobeida Samson [facility] PROTHROMBIN TIME / INR 2021-11-10 01:47:00 Sobeida Samson [facility] D-DIMER 2021-11-10 01:47:00 Sobeida Samson [facility] ACTIVATED PARTIAL 2021-11-10 01:47:00 Sobeida Samson [facility] THRLAS [facility] COVID-19 (ID NOW RAPID 2021-11-10 01:47:00 Sobeida Samson [facility] TESTING) Medical [place] LAB ONLY COVID 2021-11-10 01:47:00 Sobeida Samson [facility] INTERPRETATION [facility] AC ABG + LACTIC ACID 2021-11-10 01:45:00 Sobeida Samson [facility] XR CHEST 1 VW 2021-11-10 01:38:00 Sobeida Samson [facility] COMP. METABOLIC PANEL 2021-11-10 01:32:00 Jose Enrique Samsonelle [facility] ([id number]) [facility] Branch CBC WITH DIFF 2021-11-10 01:32:00 Sobeida Samson [facility] CONSENT/REFUSAL FOR 2021-11-10 00:42:41 Doctor Unassigned, [facility] DIAGNOSIS AND TREATMENT [facility] [place] EXTERNAL PROVIDER - 2021-11-03 06:01:00 Doctor Unassigned, [facility] WOMEN'S SERVICES [facility] RADIOLOGY XR CHEST 1 2021-10-24 18:45:48 Abu Sher [facility] XR CHEST 1 2021-10-24 18:45:48 Sunday Olivarez [facility] BASIC METABOLIC PANEL 2021-10-24 12:36:00 Renato [facility] (NA, K, CL, CO2, GLUCOSE, Medica l Branch BUN, CREATININE, CA) CBC WITHOUT DIFF 2021-10-24 12:36:00 Renato [facility] BASIC METABOLIC PANEL 2021-10-24 12:36:00 Renato [facility] (NA, K, CL, CO2, GLUCOSE, Medica l Branch BUN, CREATININE, CA) CBC WITHOUT DIFF 2021-10-24 12:36:00 Renato [facility] XR CHEST 1 2021-10-22 15:58:26 u Sher [facility] XR CHEST 1 2021-10-22 15:58:26 Sunday Olivarez [facility] MAGNESIUM 2021-10-22 10:47:00 [facility] BASIC METABOLIC PANEL 2021-10-22 10:47:00 Zelda Rose [facility] (NA, K, CL, CO2, GLUCOSE, Medica l Branch BUN, CREATININE, CA) CBC WITH DIFF 2021-10-22 10:47:00 Zelda Rose [facility] MAGNESIUM 2021-10-22 10:47:00 [facility] BASIC METABOLIC PANEL 2021-10-22 10:47:00 Zelda Rose [facility] (NA, K, CL, CO2, GLUCOSE, Medica l Branch BUN, CREATININE, CA) CBC WITH DIFF 2021-10-22 10:47:00 Zelda Rose o f [facility] XR CHEST 1 VW 2021-10-21 22:10:00 Sunday Samsonlewis Anaya [facility] XR CHEST 1 VW 2021-10-21 22:10:00 [facility] AC PANEL 20 + LACTIC ACID 2021-10-21 20:28:00 Abu Mali [facility] AC PANEL 20 + LACTIC ACID 2021-10-21 20:28:00 Sunday [facility] CYTO BAL 2021-10-21 18:49:00 ki [facility] BODY FLUID DIRECT COUNT 2021-10-21 18:47:[address] [facility] BODY FLUID DIRECT COUNT 2021-10-21 18:47:00 [facility] Mal[facility] [employer] CULTURE 2021-10-21 18:46:00 ki Samson [facility] FUNGUS (ROUTINE) CULTURE 2021-10-21 18:46:00 [facility] MYCOBACTERIUM 2021-10-21 18:46:00 [facility] TUBERCULOSIS COMPLEX PCR [facility] RESPIRATORY PANEL BY PCR 2021-10-21 18:46:00 Sunday Olivarez [facility] [employer] CULTURE 2021-10-21 18:46:00 [facility] FUNGUS (ROUTINE) CULTURE 2021-10-21 18:46:00 ki [facility] MYCOBACTERIUM 2021-10-21 18:46:00 [facility] TUBERCULOSIS COMPLEX PCR [facility] RESPIRATORY PANEL BY PCR 2021-10-21 18:46:00 ki Samson [facility] BASIC METABOLIC PANEL 2021-10-21 18:44:00 Anaya Kline [facility] (NA, K, CL, CO2, GLUCOSE, Medica l Branch BUN, CREATININE, CA) BASIC METABOLIC PANEL 2021-10-21 18:44:00 AbAnaya Dover [facility] (NA, K, CL, CO2, GLUCOSE, Medica l Branch BUN, CREATININE, CA) CBC WITH DIFF 2021-10-21 18:41:00 Anaya Kline [facility] PROTHROMBIN TIME / INR 2021-10-21 18:41:00 [facility]Anaya [facility] [place] [facility] FIB[facility] 2021-10-21 18:41:00 Abu Anaya Olivarez [facility] CBC WITH DIFF 2021-10-21 18:41:00 Anaya Kline [facility] PROTHROMBIN TIME / INR 2021-10-21 18:41:00 Abki SamsonAnaya saucedo [facility] [place] [facility] FIBRINOGEN 2021-10-21 18:41:00 Abu [facility] ANTI-NUCLEAR ANTIBODY 2021-10-21 18:41:00 Abki Anaya Olivarez [facility] FL TIME OR 2021-10-21 18:18:06 Abki Sher Anaya [facility] (NON-REPORTABLE) [facility] FL TIME OR 2021-10-21 18:18:06 Sunday Sher Aanya [facility] (NON-REPORTABLE) [facility] FLEXIBLE BRONCHOSCOPY 2021-10-21 16:21:00 Abki Samsonlewis Anaya Morrow [facility] FLEXIBLE BRONCHOSCOPY 2021-10-21 16:21:00 Abki Olivarez Anaya Morrow [facility] XR CHEST 1 VW 2021-10-20 11:13:00 Abu Sher Anaya [facility] XR CHEST 1 VW 2021-10-20 11:13:00 Abu Sher Caseamina [facility] CBC WITH DIFF 2021-10-20 10:30:00 Maggie Morgan [facility] CBC WITH DIFF 2021-10-20 10:30:00 Maggie Morgan [facility] URIC ACID 2021-10-20 10:29:00 [facility]OLIC PANEL 2021-10-20 10:29:00 Maggie Morgan [facility] (NA, K, CL, CO2, GLUCOSE, Medica l Branch BUN, CREATININE, CA) URIC ACID 2021-10-20 10:29:00 [facility] METABOLIC PANEL 2021-10-20 10:29:00 Maggie Morgan [facility] (NA, K, CL, CO2, GLUCOSE, Medica l Branch BUN, CREATININE, CA) XR CHEST 1 VW 2021-10-19 18:11:14 [facility] 1 VW 2021-10-19 18:11:14 [facility] WITH DIFF 2021-10-19 09:05:00 Maggie Morgan [facility] CBC WITH DIFF 2021-10-19 09:05:00 Maggie Morgan [facility] MAGNESIUM 2021-10-19 09:04:00 [facility] BASIC METABOLIC PANEL 2021-10-19 09:04:00 Maggie Morgan [facility] (NA, K, CL, CO2, GLUCOSE, Medica l Branch BUN, CREATININE, CA) MAGNESIUM 2021-10-19 09:04:00 [facility] BASIC METABOLIC PANEL 2021-10-19 09:04:00 Maggie Morgan [facility] (NA, K, CL, CO2, GLUCOSE, Medica l Branch BUN, CREATININE, CA) POCT GLUCOSE (AUTOMATED) 2021-10-19 02:24:00 Blanca Talavera [facility] POCT GLUCOSE (AUTOMATED) 2021-10-19 02:24:00 Blanca Talavera [facility] COVID-19 (MOLECULAR 2021-10-18 19:48:00 [facility] LAB ONLY COVID 2021-10-18 19:48:00 [facility] INTERPRETATION [facility] COVID-19 (MOLECULAR 2021-10-18 19:48:00 Vale Jones [facility] TESTING [facility] NUCLEIC ACID AMPLIFICATION) LAB ONLY COVID 2021-10-18 19:48:00 Robert [facility] INTERPRETATION [facility] ANGIOTENSIN CONVERTING 2021-10-18 19:45:00 [facility] RHEUMATOID FACTOR 2021-10-18 19:45:00 [facility] ANCA SCREEN 2021-10-18 19:45:00 Robert [facility] ANGIOTENSIN CONVERTING 2021-10-18 19:45:00 Vale [facility]HE[facility] 2021-10-18 19:45:00 Amadou Putnam [facility] ANCA SCREEN 2021-10-18 19:45:00 Robert [facility] XR CHEST 1 VW 2021-10-18 12:37:00 Abu Sher [facility] XR CHEST 1 VW 2021-10-18 12:37:00 Abu Sher [facility] PHOSPHORUS 2021-10-18 09:30:00 [facility] MAGNESIUM 2021-10-18 09:30:00 [facility] BASIC METABOLIC PANEL 2021-10-18 09:30:00 Zelda Rose [facility] (NA, K, CL, CO2, GLUCOSE, Medica l Branch BUN, CREATININE, CA) CBC WITH DIFF 2021-10-18 09:30:00 [facility] GLYCOSYLATED HEMOGLOBIN 2021-10-18 09:30:[address] [facility] (A1[facility]) Medical Branch PHOSPHORUS 2021-10-18 09:30:00 [facility] MAGNESIUM 2021-10-18 09:30:00 Zelda Rose [facility] BASIC METABOLIC PANEL 2021-10-18 09:30:00 Zelda Rose [facility] (NA, K, CL, CO2, GLUCOSE, Medica l Branch BUN, CREATININE, CA) CBC WITH DIFF 2021-10-18 09:30:00 [facility] GLYCOSYLATED HEMOGLOBIN 2021-10-18 09:30:[address] [facility] (A1C) [facility] BASIC METABOLIC PANEL 2021-10-18 00:43:00 Abu [facility] (NA, K, CL, CO2, GLUCOSE, Medica l Branch BUN, CREATININE, CA) BASIC METABOLIC PANEL 2021-10-18 00:43:00 Abu [facility] (NA, K, CL, CO2, GLUCOSE, Medica l Branch BUN, CREATININE, CA) N-TERMINAL PRO-BNP 2021-10-17 21:27:00 [facility]-BNP 2021-10-17 21:27:00 Josie [facility] TRANSTHORACIC ECHO (TTE) 2021-10-17 17:05:00 Bk [facility] TRANSTHORACIC ECHO (TTE) 2021-10-17 17:05:00 Bk [facility] XR CHEST 1 VW 2021-10-17 17:00:[facility]W 2021-10-17 17:00:50 Josie [facility] XR CHEST 1 VW 2021-10-17 14:17:12 Josie [facility] XR CHEST 1 VW 2021-10-17 14:17:12 Josie [facility] ABG+COOX+NA+K+GLU+CA2+ 2021-10-17 13:25:00 Shadi Rodriguez [facility] ABG+COOX+NA+K+GLU+CA2+ 2021-10-17 13:25:00 Shadi Rodriguez [facility] PHOSPHORUS 2021-10-17 10:28:00 Josie [facility] MAGNESIUM 2021-10-17 10:28:00 Josie, [facility] [place] BASIC METABOLIC PANEL 2021-10-17 10:28:00 Josie [facility] (NA, K, CL, CO2, GLUCOSE, Medica l Branch BUN, CREATININE, CA) SEDIMENTATION RATE 2021-10-17 10:28:00 Shadi Rodriguez [facility] CBC WITH DIFF 2021-10-17 10:28:00 oJsie [facility] [place] ANTI-NUCLEAR ANTIBODY 2021-10-17 10:28:00 Shadi Rodriguez [facility] ANTI-NUCLEAR ANTIBODY 2021-10-17 10:28:00 Tal [facility] ANTI-DOUBLE STRANDED DNA 2021-10-17 10:28:00 Amadou Putnam [facility] HIV 1/2 AG-AB WITH REFLEX 2021-10-17 10:28:00 u Anaya Olivarez [facility] ANTI-NUCLEAR 2021-10-17 10:28:00 Tal [facility] ANTIBODY-PATHOLOGIST Medical [facility] INTERPRETATION PHOSPHORUS 2021-10-17 10:28:00 Josie [facility] [place] MAGNESIUM 2021-10-17 10:28:00 Josie [facility] [place] BASIC METABOLIC PANEL 2021-10-17 10:28:00 Josie [facility] (NA, K, CL, CO2, GLUCOSE, Medica l Branch BUN, CREATININE, CA) SEDIMENTATION RATE 2021-10-17 10:28:00 Shadi Rodriguez [facility] CBC WITH DIFF 2021-10-17 10:28:00 Josie [facility] [place] ANTI-NUCLEAR ANTIBODY 2021-10-17 10:28:00 Shadi Rodriguez [facility] ANTI-NUCLEAR ANTIBODY 2021-10-17 10:28:00 Shadi Rodriguez [facility] ANTI-DOUBLE STRANDED DNA 2021-10-17 10:28:00 Amadou Putnam [facility] HIV 1/2 AG-AB WITH REFLEX 2021-10-17 10:28:00 Anaya Kline [facility] ANTI-NUCLEAR 2021-10-17 10:28:00 Shadi Rodriguez [facility] ANTIBODY-PATHOLOGIST Medical [facility] INTERPRETATION BLOOD CULTURE SCREEN 2021-10-16 17:40:00 [facility] 2021-10-16 17:40:00 Amadou Putnam Un [facility] XR CHEST 1 VW 2021-10-16 [facility] 2021-10[facility]16 [facility] 2021-10-16 14:46:00 Amadou Putnam [facility] RESPIRATORY PANEL BY PCR 2021-10-16 14:46:00 Amadou Putnam [facility] PHOSPHORUS 2021-10-16 10:47:00 Josie [facility] [place] MAGNESIUM 2021-10-16 10:47:00 Josie [facility] [place] BASIC METABOLIC PANEL 2021-10-16 10:47:00 Samir Galindo [facility] (NA, K, CL, CO2, GLUCOSE, Medica l Branch BUN, CREATININE, CA) CBC WITH DIFF 2021-10-16 10:47:00 Josie [facility] [place] AC PANEL 20 + LACTIC ACID 2021-10-16 10:47:00 Samir Galindo [facility] PHOSPHORUS 2021-10-16 10:47:00 Josie [facility] [place] MAGNESIUM 2021-10-16 10:47:00 Josie [facility] [place] BASIC METABOLIC PANEL 2021-10-16 10:47:00 Josie [facility] (NA, K, CL, CO2, GLUCOSE, Medica l Branch BUN, CREATININE, CA) CBC WITH DIFF 2021-10-16 10:47:00 Samir Galindo [facility] AC PANEL 20 + LACTIC ACID 2021-10-16 10:47:00 Samir Galindo [facility] C-REACTIVE PROTEIN 2021-10-15 22:38:00 Tal [facility] TROPONIN I 2021-10-15 22:38:00 Ilan Jennie [facility] BASIC METABOLIC PANEL 2021-10-15 22:38:00 [facility] (NA, K, CL, CO2, GLUCOSE, Medica l Branch BUN, CREATININE, CA) C-REACTIVE PROTEIN 2021-10-15 22:38:00 Tal [facility] TROPONIN I 2021-10-15 22:38:00 Ilan Jennie [facility] BASIC METABOLIC PANEL 2021-10-15 22:38:00 Samir Galindo [facility] (NA, K, CL, CO2, GLUCOSE, Medica l Branch BUN, CREATININE, CA) PNEUMOCOCCAL ANTIGEN 2021-10-15 21:49:00 [facility] 2021-10-15 21:49:00 Josie [facility] [place] [facility] LEGIONELLA URINARY 2021-10-15 21:48:00 Josie [facility] ANTIGEN [facility] LEGIONELLA URINARY 2021-10-15 21:48:00 Josie [facility] ANTIGEN [facility] CT ANGIOGRAM CHEST 2021-10-15 19:22:00 Anaya Kline [facility] CT ANGIOGRAM CHEST 2021-10-15 19:22:00 Anaya Kline [facility] TROPONIN I 2021-10-15 17:29:00 Ilan Jennie [facility] RAPID INFLUENZA A/B 2021-10-15 17:29:00 Nicol Bourgeois [facility] N-TERMINAL PRO-BNP 2021-10-15 17:29:00 Nicol Buorgeois [facility] PROCALCITONIN 2021-10-15 17:29:00 Nicol Bourgeois [facility] COVID-19 (MOLECULAR 2021-10-15 17:29:00 Vito Bourgeoisdaysi [facility] NUCLEIC ACID AMPLIFICATION) LAB ONLY COVID 2021-10-15 17:29:00 Bk [facility] TROPONIN I 2021-10-15 17:29:00 [facility]AP[facility] INFLUENZA A/B 2021-10-15 17:29:00 [facility] N-TERMINAL PRO-BNP 2021-10-15 17:29:00 Vito Bourgeoisdaysi [facility] PROCALCITONIN 2021-10-15 17:29:00 [facility] (MOLECULAR 2021-10-15 17:29:00 Nicol Bourgeois [facility] NUCLEIC ACID AMPLIFICATION) LAB ONLY COVID 2021-10-15 17:29:00 [facility] (ID NOW RAPID 2021-10-15 13:03:00 Samir Galindo [facility] TESTING) Medical Branch LAB ONLY COVID 2021-10-15 13:03:00 Samir Galindo [facility] Branch COVID-19 (ID NOW RAPID 2021-10-15 13:03:00 Samir Galindo [facility] TESTING) Medical Branch LAB ONLY COVID 2021-10-15 13:03:00 Samir Galindo [facility] XR CHEST 1 VW 2021-10-15 09:46:38 [facility]ST 1 VW 2021-10-15 09:46:38 Blanca Talavera [facility] MAGNESIUM 2021-10-15 08:16:00 Samir Galindo [facility] BASIC METABOLIC PANEL 2021-10-15 08:16:00 Samir Galindo [facility] (NA, K, CL, CO2, GLUCOSE, Medica l Branch BUN, CREATININE, CA) PROCALCITONIN 2021-10-15 08:16:00 Ilan Jennie [facility] MAGNESIUM 2021-10-15 08:16:00 Josie [facility] [place] BASIC METABOLIC PANEL 2021-10-15 08:16:00 Josie Samir [facility] (NA, K, CL, CO2, GLUCOSE, Medica l Branch BUN, CREATININE, CA) PROCALCITONIN 2021-10-15 08:16:00 Ilan Jennie [facility] ABG+COOX+NA+K+GLU+CA2+ 2021-10-15 07:24:00 Samir Galindo [facility] ABG+COOX+NA+K+GLU+CA2+ 2021-10-15 07:24:00 Josie Samir [facility] TROPONIN I 2021-10-15 07:10:00 Ilan Jennie [facility] CBC WITH DIFF 2021-10-15 07:10:00 Josie [facility] [place] [facility] TROPONIN I 2021-10-15 07:10:00 Ilan Jennie [facility] CBC WITH DIFF 2021-10-15 07:10:00 Josie [facility] [place] MRSA / MSSA SCREEN BY 2021-10-15 07:09:00 Josie [facility] MRSA / MSSA SCREEN BY 2021-10-15 07:09:00 Josie [facility] AUTHORIZATION FOR RELEASE 2021-06-09 05:01:00 Doctor Unassigned, [facility] Encounters Start End Encounter Admission Attending Care Care Encounter Source Date/Time Date/Time Type Type Clinicians Facility Department ID 2021-11-09 2021-11-11 Outpatient X TEQWIMUAAndrew[facility] [id number] Univers 18:47:00 17:31:00 WILFRID [facility] 2021-11-09 2021-11-11 Emergency Sobeida Samson [facility] 1.2.8 40.114 [id number] Univers 18:47:00 17:31:00 Tejareth Wilfrid HEALTH 350.1.13.10 [place] [id number] [facility] 116 Branch ([facility]) 2021-11-03 2021-11-03 Orders Doctor MARISCAL 1.2.840.114 [id number] Univers 00:00:00 00:00:00 Only Unassigned, BETH 350.1.13.10 [facility] 4.2.7.2.686 José Miguel as [id number] [facility] 009 Branch 2021-10-25 2021-10-25 Transition SABINA Waters 1.2.840.114 [id number] Univers 00:00:00 00:00:00 of Care Anyeri DOHERTY 350.1.13.10 [place] [id number] [facility] 403 Branch 2021-10-15 2021-10-[address] [facility] [id number] Univers 00:23:00 17:53:[address] [facility] 2021-10-15 2021-10-24 Hospital Blanca Talavera [facility] 1.2.840.114 [id number] Univers 00:23:00 17:53:00 Encounter Josie Samir HEALTH 350.1.13.10 ity of Shadi Rodriguez 4.2.7.2.686 [place] Flash Bob [phone] [facility] 113 Branch ([facility]) 2021-10-21 2021-10-21 Surgery Abu [facility] 1.2.840.114 [id number] Univers 10:00:00 10:45:00 Atherah, HEALTH 350.1.13.10 i ty of [place] [phone] [facility] 020 Branch ([facility]) 2021-06-09 2021-06-09 Orders Doctor MARISCAL 1.2.840.114 [id number] Univers 00:00:00 00:00:00 Only Unassigned, BETH 350.1.13.10 [place]y [place] [facility] 4.2.7.2.686 José Miguel as [id number] [place] [address] Branch Results Test Description Test Time Test Comments Results Result Comments Source Basic Metabolic Panel (NA, K, CL, CO2, GLUCOSE, BUN, 2021-11 09:40:55 CREATININE, CA) Test Item Value Reference Range Interpretation Comme nts NA (test code = 7479547286) 138 mmol/L 135-145 K (test code = 7486551547) 3.4 mmol/L 3.5-5.0 L CL (test code = 3517302365) 107 mmol/L 98-108 CO2 TOTAL (test code = 1060705668) 25 mmol/L 23-31 AGAP (test code = 6860283876) 2-16 BUN (test code = 1625222473) 15 mg/dL 7-23 GLUCOSE (test code = 4265119075) 110 mg/dL 70-110 CREATININE (test code = 0.81 mg/dL 0.50-1.04 4086321452) CALCIUM (test code = 6851370874) 7.8 mg/dL 8.6-10.6 L eGFR (test code = 0232764419) mL/min/1.73m2 LUCILLE (test code = LUCILLE) Association of Glomerular Filtration Rate (GFR) and Staging of Kidney Disease* + +-------- + ------+| GFR (mL/min/1.73 m2) ?| With Kidney Damage ?| ?Without Kidney Damage+ +-- + +| ?>90 ?| ?Stage one ?| ? Normal ?+ +------- + -------+| ?60-89 ?| ?Stage two ?| ? Decreased GFR ? + +-------- + ------+| ?30-59 ?| ?Stage three ?| ? Stage three ? + +-------- + ------+| ?15-29 ?| ?Stage four ? | ? Stage four ?+ +------- + -------+| ?<15 (or dialysis) ? ?| ?Stage five ? | ? Stage five ?+ +------- + -------+ *Each stage assumes the associated GFR [...] or abnormalities in imaging tests). Lab Interpretation (test code = Abnormal 07856-3) [facility] with [id number] 09:25:30 Test Item Value Reference Range Interpretation Comments WBC (test code = See_Comment H [Automated 6690-2) message] The sy stem which generated this result transmitted reference range : 4.30 - 11.10 10*3/?L. The reference range was not used to interpret this result as normal/abnormal . RBC (test code = See_Comment L [Automated 789-8) message] The sy stem which generated this result transmitted reference range : 3.93 - 5.25 10*6/?L. The reference range was not used to interpret this result as normal/abnormal . HGB (test code = 9.7 g/dL 11.6-15.0 L 718-7) HCT (test code = 31.7 % 35.7-45.2 L 4544-3) MCV (test code = 93.5 fL 80.6-95.5 787-2) MCH (test code = 28.6 pg 25.9-32.8 785-6) MCHC (test code = 30.6 g/dL 31.6-35.1 L 786-4) RDW-SD (test code = 57.2 fL 39.0-49.9 H 08358-8) RDW-CV (test code = 17.0 % 12.0-15.5 H 788-0) PLT (test code = See_Comment [Automated 777-3) message] The sy stem which generated this result transmitted reference range : 166 - 358 10*3/ ?L. The reference r nicholas was not used to interpret this result as normal/abnormal . MPV (test code = 9.2 fL 9.5-12.9 L 51947-4) NRBC/100 WBC (test See_Comment [Automat ed code = 9298713151) message] The system which generated this result transmitted reference range : 0.0 - 10.0 /100 WBCs. The refer ence range was not u sed to interpret th is result as normal/abnormal . NRBC x10^3 (test code See_Comment [Auto mated = 7807790803) message] The s ystem which generated this result transmitted reference range : 10*3/?L. The reference range was not used to interpret this result as normal/abnormal . GRAN MAT (NEUT) % 72.2 % (test code = 770-8) IMM GRAN % (test code 1.30 % = 1504358612) LYMPH % (test code = 18.9 % 736-9) MONO % (test code = 6.3 % 5905-5) EOS % (test code = 1.2 % 713-8) BASO % (test code = 0.1 % 706-2) GRAN MAT x10^3(ANC) 8.06 10*3/uL 1.88-7.09 H (test code = 4218492350) IMM GRAN x10^3 (test 0.14 10*3/uL 0.00-0.06 H code = 9488041532) LYMPH x10^3 (test code 2.10 10*3/uL 1.32-3.29 = 731-0) MONO x10^3 (test code 0.70 10*3/uL 0.33-0.92 = 742-7) EOS x10^3 (test code = 0.13 10*3/uL 0.03-0.39 711-2) BASO x10^3 (test code <0.03 0.01-0.07 = 704-7) Lab Interpretation Abnormal (test code = 01204-8) [facility] [id number] 09:22:39 Test Item Value Reference Range Interpretation Comments LACTIC ACID (test code = 3.32 mmol/L 0.50-2.20 H 2339404808) Lab Interpretation (test code = Abnormal 47564-1) [facility] THRMPLAS [id number] 02:13:42 Test Item Value Reference Range Interpretation Comments APTT Patient (test code See_Comment L [Au tomated message] = 3173-2) The system [employer] generated this result transmitted ref erence range: 26 - 36 Seconds. The reference range was not used to int erpret this result as normal/abnormal . Lab Interpretation (test Abnormal code = 91252-9) [facility] Alice[facility] / [id number] 02:13:42 Test Item Value Reference Range Interpretation Comments PROTIME PATIENT (test See_Comment [Auto mated message] code = 5964-2) The system ich generated this result transmitted ref erence range: 10.1 - 1 2.6 Seconds. The re ference range was not u sed to interpret this result as normal/abnor mal. INR (test code = 6301-6) Nor mal INR <1.1; Warfarin Therap eutic range 2.0 to 3. 0 or 2.5 to 3.5, dep ending upon the indica tions. Lab Interpretation (test Normal code = 15882-0) [facility] Alice[facility]-[id number] 02:13:42 Test Item Value Reference Interpretation Comments Range D-DIMER (test code = See_Comment H [Autom ated 2885885984) message] The system which generated this result transmitted reference range : <0.50 ?g/mL (FEU). The reference range was not used to interpret this result as normal/abnormal . LUCILLE (test code = This test may be LUCILLE) used in conjunction with a clinical pretest probability (PTP) assessment model to exclude venous thromboembolism (VTE) in patients suspected of deep venous thrombosis (DVT) and pulmonary embolism (PE) A D-Dimer value less than 0.50 ?g/ml (FEU) has a negative predicative value of 96 to 100% (95% CI)and 97 to 100% (95% CI) as an aid in the diagnosis of deep vein thrombosis (DVT) and pulmonary embolism when there is low or moderate pretest probability of PE or DVT. D-Dimer values are expressed in initial fibrinogen equivalent units (FEU)" The assay results should be used with other information, including the clinical context, in forming a diagnosis. Lab Interpretation Abnormal (test code = 49764-8) [facility] METABOLIC PANEL (71998)2021-11-10 01:57:17 Test Item Value Reference Range Interpretation Comments NA (test code = 139 mmol/L 135-145 4044800568) K (test code = 3.9 mmol/L 3.5-5.0 6873056839) CL (test code = 106 mmol/L 98-108 7892530659) CO2 TOTAL (test code = 27 mmol/L 23-31 3923936270) AGAP (test code = 2-16 6521982789) BUN (test code = 17 mg/dL 7-23 9944980968) GLUCOSE (test code = 135 mg/dL 70-110 H 0937117995) CREATININE (test code = 0.72 mg/dL 0.50-1.04 8964212957) TOTAL BILI (test code = 0.3 mg/dL 0.1-1.8 7344832857) CALCIUM (test code = 8.1 mg/dL 8.6-10.6 L 5966329652) T PROTEIN (test code = 5.6 g/dL 6.3-8.2 L 7650610878) ALBUMIN (test code = 3.3 g/dL 3.5-5.0 L 3942297324) ALK PHOS (test code = 126 U/L 34-122 H 7345801457) ALTv (test code = 47 U/L 5-35 H 1742-6) AST(SGOT) (test code = 27 U/L 13-40 4361025141) eGFR (test code = mL/min/1.73m2 3703225945) LUCILLE (test code = LUCILLE) Association of [...] tests). Lab Interpretation Abnormal (test code = 10379-8) [facility] + LACTIC [id number] 01:51:44 Test Item Value Reference Range Interpretation Comments PH (test code = 2) 7.35-7.45 PCO2 (test code = See_Comment [Automat ed 5162702360) message] The sy stem which generated this result transmitted reference range : 35 - 45 mmHg. The reference range was not used to interpret this result as normal/abnormal . PO2 (test code = See_Comment L [Automated 8372252835) message] The sy stem which generated this result transmitted reference range : 80 - 100 mmHg. The reference range was not used to interpret this result as normal/abnormal . HCO3 (test code = See_Comment [Automate d 0063271930) message] The sy stem which generated this result transmitted reference range : 22 - 26 mEq/L. The reference range was not used to interpret this result as normal/abnormal . BE (test code = See_Comment [Automated 1944336368) message] The sy stem which generated this result transmitted reference range : -3.0 - 3.0 mEq/ L. The reference r nicholas was not used to interpret this result as normal/abnormal . LACTIC ACID (test code 4.25 mmol/L 0.50-2.20 H QUES = 1767726884) Lab Interpretation Abnormal (test code = 73541-2) [facility] Alice[facility] WITH [id number] 01:50:58 Test Item Value Reference Range Interpretation Comments [...] as normal/abnormal . HGB (test code = 9.9 g/dL 11.6-15.0 L 718-7) HCT (test code = 31.7 % 35.7-45.2 L 4544-3) MCV (test code = 91.9 fL 80.6-95.5 787-2) MCH (test code = 28.7 pg 25.9-32.8 785-6) MCHC (test code = 31.2 g/dL 31.6-35.1 L 786-4) RDW-SD (test code = 55.7 fL 39.0-49.9 H 43935-9) RDW-CV (test code = 16.8 % 12.0-15.5 H 788-0) PLT (test code = See_Comment [Automated 777-3) message] The system which generated this result transmit britney reference range : 166 - 358 10*3/ ?L. The reference range was not u sed to interpret th is result as normal/abnormal . MPV (test code = 9.5 fL 9.5-12.9 04973-5) NRBC/100 WBC (test See_Comment [Automat ed code = 7298311811) message] The system which generated this result transmit britney reference range : 0.0 - 10.0 /100 WBCs. The reference range was not used to interpret this result as normal/abnormal . NRBC x10^3 (test code <0.01 See_Comment [Auto mated = 3511962515) message] The system which generated this result transmit britney reference range : 10*3/?L. The reference range was not used to interpret this result as normal/abnormal . GRAN MAT (NEUT) % 84.7 % (test code = 770-8) IMM GRAN % (test code 0.80 % = 0915372014) LYMPH % (test code = 10.9 % 736-9) MONO % (test code = 3.4 % 5905-5) EOS % (test code = 0.1 % 713-8) BASO % (test code = 0.1 % 706-2) GRAN MAT x10^3(ANC) 11.84 10*3/uL 1.88-7.09 H (test code = 7561680346) IMM GRAN x10^3 (test 0.11 10*3/uL 0.00-0.06 H code = 2495242332) LYMPH x10^3 (test code 1.52 10*3/uL 1.32-3.29 = 731-0) MONO x10^3 (test code 0.47 10*3/uL 0.33-0.92 = 742-7) EOS x10^3 (test code = <0.03 0.03-0.39 L 711-2) BASO x10^3 (test code <0.03 0.01-0.07 = 704-7) Lab Interpretation Abnormal (test code = 32842-0) [facility] [id number] 21:38:57 Test Item Value Reference Range Interpretation Comments Case Report (test Non-Gynecologic Cytology code = 2670072359) ?Case: [id number] ?Authorizing Provider: ?Anaya Kline MD ? ? Collected: ? 10/21/2021 1249 ?Ordering Location: ? ? [facility] ?Received: ?10/21/2021 1257 ? Medicine/Surgery [facility] 7B ?Pathologist: ? Glenna Alejandra MD ? Specimen: ? ?LUNG, LEFT UPPER LOBE, BRONCHOALVEOLAR LAVAGE ? Final Diagnosis (test w5bjtSDuJYJsg4kcPQEpeTXf code = 0085225992) ZzEwMzNcZnRuYmpcdWMxIHtc cnRmMVxlcGljOTYwMVxhbnNp RKKspERbE0BsefsoRLlbOR2i HT2teLxotYOksIMbLYCdMiFd r3cpa345kWCoj8ofRCDUqfhb zXh0hGvnC85fy8O1KkwuE3bm ZWQwXGdyZWVuMFxibHVlMDt9 XHBhcGVydzEyMjQwXHBhcGVy kBM1PMGiFP0afncxPPreCGyh UNQzxrM0YVZerBXcU6QqJILx YJ9uuhfyWOF2VRhkEAOxZTC5 ArCgCPTga0Poanx8VrKvlWJh ZFxwbGFpblxmczIwXHBhclxi IEExLiAgTFVORywgTEVGVCBV FZOWVgTUO5CUWvZNBh7AI6gX WSkUSU4YQSYvPUYSBSwYMxmv PINwJwUjKUPjQuoeVoGjYs5r EFJBYQhJHH1JBGKPFFpEHKtY HH5ZSXLWFLKsFCqxSEAqM0CE LCQOVH3PJfAsWJIbborwNwSt dDVgmCikktSfMQuai6JoS2Cu MjAwMFxhbnNpXGRlZmxhbmcx GSOzCIG8buDoDEGkJLfcJNQz AXugPi4biIXueFgvTiDsRFEm o5fvohMUQEavWcFwD938STWb SUpcx2kzu5LaJXXixSTst0F2 EANPfoifbNl4f7ttUeOsBaS3 jYTdLVisS6wsmwXccWQjG2Jx cHOgtDr5nQvzG84qi4V4Pfhb I0dgCGZzINThC8MeSP0qLAMo Irj9LAI9CZG6RNDsGVGgD9Yv GP4oFBVeyUTqRPe3m2qnjUla SFJjMTJ4p4soXYoiunA1GE2c or7ibJb6j6nltuPiFVIkAGPj wAIPAHUwK0PhcCatBs0zmAv0 fOkxVsadWJS8Jgc9WL3rrr52 luf6zJolRSLvqoobVhX1NEtv JPTmtgudLRn6ILvvRPDwzKF8 ROZgtBGuD2KkETPbDX7hnus9 UOK1GIfmGGFlIrG6RSIriJUe QMNbeKdjBUoxz126HXG5NbUb SI7cZ7Uhj8J7hD1msSVdSAWq oCFsQiGhXEJniz3ujSRcBXhc r4UeNHY7qrB0iSWzgHPiRDTo GX98Kfixi5CdJayaAQL4DCDq czFnn1Ssf3cpZrYgdwOyR9hg V3GpFDXyRYWlYGBfFcDcftUk i2Tun8IpwBEplQw8h6gkORXu LQNniJzul9ekMAO8UJGrA8F7 rBLhm3vkYLopQRPegFF6ngC0 RIOmtYUsB7MolT0tWYFtSL7r uue7v3nsPBD7LPdrYZFzRgQ9 szM0ZDCsnKWnBXJtcLyoDIwe f751KFS3FzSkKAXtz4QsV1Gw wTljN85wkHwtD92oQWJztKym kU7ntMgueG9vWbQlOuTaUJda bFxwbGFpblxmMVxmczIwXGxh drofTPMvYOxeL3ubRyHlVCUd oTocKQdbt0LwFHWhOHJuShup czIwXHBhciBJIGhhdmUgcGVy s10bFWcypMTzGOIrIOmeMFEi hCcrv2RbZ7pnZK4pU5PihZAd khIppgSpZMpkHGZlh0u9eXQx kCoyc6ZvsWZdYO87yaKeEVCi OWK9NXDzs1fyTT51vxffIlOz iG07lkIpuxYyFZNdc9ebS6jw nRIwr0Ugs1VmucZrTAfji0Xx UV7lbKLdgpzumEY7JIZylNLs iiHkepU7nFzsXLAhjA2bcM3o qYohfE6fEzTrQmIiHOnrDU9o IIPbG1sbxVXnEIEnVRSbD5zw MoXzyO6fkWaxUggqecI9MPMy cn19 Final Diagnosis h4bmlTRwYZYjbGW9VbXpBMWm Comment (test code = d3bod9WhdJIvaFTwNUwfhCNc 7081675489) mmKyaa86xZU7jC32KK7hWDIe AoZ7ANRezsY4Bbv9ECXhNXDb uROoM358i5svg1qwoeOmvPN8 CQVkGBOtN7UuZJ9tBILpbHAf C05knAVwUYX2TNDyKZOxxKOa VKPfAWV8OPUfmFJhM6vvRQSx RV5khlceFXxyXWjlNXVoxWC2 CLRfhRWxH6JsCSHeJXzsIILe eju7RoPqTw1ydLFdjSphFRys KQEjSGNiVRasNQTzNmXaR84q FBXhXETel6fezQ9jpKi4KCUr u94riN1iOSCqwXqllFdmwETt DDfazvZymgCzDkZ9ITUoxcNu tZYjAU4rQ1DjuZcuM8JaXhTS RNFuQTahd2NpWT0uBEQ5wIFt TxCipqZ6zG6ykRRaznZaZPRl FwYuN9UxWG1bLM9cnUcbbqGz dCBjZWxscyBpZGVudGlmaWVk BmtaIMGrV7TnYHWqvp0= Clinical Information 1. Pneumonia / covid / (test code = SARS [id number]) Gross Description x6vhdETzUBMejZT4TwYrLTXv (test code = t2yfx5NwiRTrqKMwJQgogIVs [id number]) pwOmjk42qJD3pG91XY9kBCHi CsL1TAJpjdK6Sit7ZSFyENHh kWObL273q2twy0lbppCetYN2 PYPsQGGlE3IjLE2fEUUueYXz X92zbLCfRBI4IERzVUGtlNTn NIXnWGU6LAOiaFYvG0ogEXEr QF5eowmcWLqqPGquBZVvaSU8 BGMlvXEgX6FdPYBlYUoyGZYg bdp8OaMvUw1hlSXwjGfaFEed MSNxr9fzQZFqrXLjUKE3JLrl bLQeKIUuKDTnTWm7GTZjKTzg jXNnXR6nzNfxZqanoCpiv1Aa dCBcXGlkIDUxMDAyIFxcZGIg E1GPEJNnIoBeVcu8SOWfOPh6 TZn2PW3OFqSgLJZhBvz4SHKa YyOtHTq1KAkjQF7EQQI5UgD4 CFOyBtxpIXTeAgEcBKe1GQOo XFxmbCBcXGYgQXJpYWwgXFxm pkCeKHDcUA4qjKmonPAswpkp czIwXHBhclxmczIyXHBhciBB FB2mXMbWOuihVTrEMaGpDGKC GVZeEJ3IDWoxWuWOMrOAQ1YP VkVPTEFSIExBVkFHRVxwYXJc NcWhPMsdLlJiLkRtOEh6EXCv PzCtx7aczUAyX0LvfyGqDEBt xXHjSJS4TFEsV7Ffl8YlB2bp XMAjMgk9wDHmlnMiXYp8IPXi MdJwt3elaRVaUIRhWSUuafPu IYQjr3twASGhCEjRnNEyf8Be iaJvjlIjAISbsQlmdcH6JFGm Yn1hJT3vi2LssQJnosPiYKAN PUEgdaors5ltg9Imt5IfuZ4g ZClcZnMyMlxjZjAgIHtcZXBp H0RzG4NoieR1u7ayrHhyh4Uh vPPaNW4woVYlbG== Disclaimer (test code w8trqSWrUQOnu7ejBPRomYDf = [id number]) ZzEwMzNcZnRuYmpcdWMxIHtc dbYbARjwx5NqP3RwRwHeMLrn bnNpXGRlZmxhbmcxMDMzXGZ0 jhUhUMMzUKyzQOJnFDwtGp3s yTGanZrsBnJqGUCik5ffwcSK BRvpBeHvM578OALmZQwfr4wc l3GdPQGrsXTqz6F6RGGCvwne eZw6nWlnP98dn5V8FqdhO1hh ERUwWTTlO9WdHJ3mCJBgDbq6 BBU6XWS3XXJsZWHtX9OhBF4u HXAggQZeQYm2i1esxSafMNKs KGK9d3kcPArdckRlUK8xpc6w jFl6f4aocmVnYUZyXUVikAJZ WRWnD7NojSsiAa7esAy0zWto XjheFAQ5Bvj6JF1yci24ysn5 tQlbDMKsvfobKxF8CLdfGFHc ehioRUx2GBmcYPHzgMR1IGNi tLAmL5DbDGAwYQ5wroj8LYK9 GXwmYUTsXpV5UYBorAGkSSCb xUxcLKowf954RDN6EaFyBG6k P8Xft4H7aZ6nfWCsFJUpbSBf LnMnCPLlgy7vzZOvYQvji6Lc CUL9kxZ8pDEzxGQdHOVuXZ41 Zcqmw8DuCuxbs9SiP14tpBN3 BLtxl0qfGR8bKoB8rhKiJQik o5zfoD0fJdO0ASwsNS7lEN4w DIUuvX7nbxrqFSClUbGmcrce EJWzyBphlqMkVf8hnOiuNQE1 IRibM8zldS4mHoK8TFzvS5ru dL4uGNf3CNvjtTE3QRZpcW6d YJ6inrftb5kpUJwhDYvtMXNb owT9fnS8KPFfbEMrY8KdqN3n XLYlYG2qeoobx3xjXDW6VNky JLXpJXC1AzOeDTMwf9Yjqwk8 WrHfs1PjfTGiBXieV96bw984 ENAfhhQaD4rxsEAqrapnkBFv eqvvPIpjocK0BQAcysIra8Tz CCUaFRW1BXblDTqauRKrXOXp mLtph2smZ1LukVIgHAQuWTwx XGYxXGZzMjBcbGFuZzEwMzNc aGljaFxmMVxkYmNoXGYxXGxv T2qbZhSnM6LgKPWwSnKdmNVp I9epADqlylKsNCTzynEniLQ7 JYyoY1q3BQOeyfAciIw7drRn WnFsIMMwHUK4NLggvZAmIEEx u4MxccngfUNsHp1gqIMxYKIp oF2pKQCfBTQjZAxqSP3uqUx9 MRENwWGpfPUcVpAHDCCiKT86 rtPsDJDNygtrg9S4VRzdPATo l2MzcRXcF1pvq2FqJEAbs03v WJ0uf0U0c4plULI7WP7bh8Ga GYCjiNVmwSShEJYrk2Rolubu d1ZsNHTnszMnk2EiFCLdghIq ePLiUUKclmWzpr8rbzXvRPHt PCQvQ2OqecwghHpgpjIhSVYx cv5xgcSfDGG4TMNVYXGeUDIo i0DwvG2foPPUYGC3yWOill8p mbHKzHQuLKQpje93DQGePQ3g P4ezRUDcTFTqhzTgwKXcw0Td APJzqAK4nVJxNQ9MBoSDo28e IGFuZCBEcnVnIEFkbWluaXN0 ssB0sL8rEUlLNIXcWfd+IFRo YHKJIENwXV9omhQvw8UewqSk mIcpCREikONtj1UzxNHsh7Ri pIuyd4VnvACtrIEhUB2yNNBt clxwYXIgVVRNQiBMYWJvcmF0 p1HhVFHeKEBjHJF0zNemmoi0 ZESztA1nBNPoO6ijxdiyTVxb JXHuk3WpdE5qyJNNpYQoc1Zg zJMtzOYYuCNgZR5ngrQyBJlO GVoKWSZ6ouRtELJtu9SjVEnr K9qeZ37tuUvzgGt0oSY0MZG5 mG3eEat+IFxwYXJccGFyIEFw qXKljSHfPEGwkPaxewYrN0Eb htBmiX8cnXQbzqFtKW4oLM2z N1G4cQMhEXFwlbZdn6gqPNxe dmUgYmVlbiByZXZpZXdlZCBm j5KoEFxgAPI8LVxeifBkwrIe dWRpbmcgSCZFLCBTcGVjaWFs AHP1NUjwhjBrqzWgVJ9ssP6x oCzztN5xlSNyyZI5cjufAZTe MMEugJlnEZKrEQ7fuTRlIKIm rdWOzTualFNglB9uU1YnYWRc DFZlci6yWQCmtP0yTOuig4Sf jtheHPNtBJHfOIVtrdVnga3u XYGulOJKGP2HYKenqWLqi4No dyAkR5dCINC5IQLnSkGtTpmr WFQxwTWhwAIpGXKoxz70QOVh yN8wcJvtAGDutC4avR5nuYgo hM8oLkIzFmAbLAhlFO0ePVFb D7fwxLHpNKAcCFYaX7xqWwBh gR6rmLcaANioRhGlSaGgXYdw YXJ9fQ== Embedded Images (test code = 4802071434) [facility] [id number] 20:07:20 Test Item Value Reference Range Interpretation Comments SHIRA (test code = Negative Negative 4035245245) LUCILLE (test code = LUCILLE) Negative - [...] separately. Lab Interpretation (test Normal code = 62009-0) [facility] (NA, K, CL, CO2, GLUCOSE, BUN, CREATININE, CA)2021-10-24 13:05:02 Test Item Value Reference Range Interpretation Comments NA (test code = 134 mmol/L 135-145 L 5817764985) K (test code = 4.5 mmol/L 3.5-5.0 0003747770) CL (test code = 99 mmol/L 98-108 6419260750) CO2 TOTAL (test code = 30 mmol/L 23-31 8170482508) AGAP (test code = 2-16 9363846095) BUN (test code = 23 mg/dL 7-23 3723278682) GLUCOSE (test code = 118 mg/dL 70-110 H 1811533119) CREATININE (test code = 0.71 mg/dL 0.50-1.04 7816056067) CALCIUM (test code = 8.2 mg/dL 8.6-10.6 L 0222644115) eGFR (test code = mL/min/1.73m2 4606444179) LUCILLE (test code = LUCILLE) Association of [...] tests). Lab Interpretation Abnormal (test code = 61264-2) [facility] METABOLIC PANEL (NA, K, CL, CO2, GLUCOSE, BUN, CREATININE, CA)2021-10-24 13:05:02 Test Item Value Reference Range Interpretation Comments NA (test code = 134 mmol/L 135-145 L 3501904859) K (test code = 4.5 mmol/L 3.5-5.0 1781623635) CL (test code = 99 mmol/L 98-108 5958269281) CO2 TOTAL (test code = 30 mmol/L 23-31 6757776328) AGAP (test code = 2-16 5616512710) BUN (test code = 23 mg/dL 7-23 3396685618) GLUCOSE (test code = 118 mg/dL 70-110 H 0641416893) CREATININE (test code = 0.71 mg/dL 0.50-1.04 0291844761) CALCIUM (test code = 8.2 mg/dL 8.6-10.6 L 5317538074) eGFR (test code = mL/min/1.73m2 2702914283) LUCILLE (test code = LUCILLE) Association of [...] tests). Lab Interpretation Abnormal (test code = 75383-5) [facility] WITHOUT [id number] 12:51:39 Test Item Value Reference Range Interpretation Comments WBC (test code = 6690-2) See_Comment H [A utomated message] The system [employer] generated this result transmit britney reference range : 4.30 - 11.10 10*3/?L. The reference range was not used to interpret this result as normal/abnormal . RBC (test code = 789-8) See_Comment [Au tomated message] The system [employer] generated this result transmit britney reference range [...] See_Comment H [Au tomated message] The system [facility] generated this result transmit britney reference range : 166 - 358 10*3/?L. The reference range was not used to interpret this result as normal/abnormal . MPV (test code = 10.1 fL 9.5-12.9 37407-9) RDW-CV (test code = 14.2 % 12.0-15.5 788-0) RDW-SD (test code = 43.8 fL 39.0-49.9 00740-0) NRBC x10^3 (test code = See_Comment [Au tomated message] 2881468041) The system [facility] generated this result transmit britney reference range : 10*3/?L. The reference range was not used to interpret this result as normal/abnormal . NRBC/100 WBC (test code See_Comment [Au tomated message] = 3372489265) The system [facility] generated this result transmit britney reference range : 0.0 - 10.0 /100 WBC s. The reference r nicholas was not used to interpret this result as normal/abnormal . IPF % (test code = 3966245464) Lab Interpretation (test Abnormal code = 68093-5) [facility] WITHOUT [id number] 12:51:39 Test Item Value Reference Range Interpretation Comments WBC (test code = 6690-2) See_Comment H [A utomated message] The system [employer] generated this result transmit britney reference range : 4.30 - 11.10 10*3/?L. The reference range was not used to interpret this result as normal/abnormal . RBC (test code = 789-8) See_Comment [Au tomated message] The system [employer] generated this result transmit britney reference range [...] See_Comment H [Au tomated message] The system [employer] generated this result transmit britney reference range : 166 - 358 10*3/?L. The reference range was not used to interpret this result as normal/abnormal . MPV (test code = 10.1 fL 9.5-12.9 93123-4) RDW-CV (test code = 14.2 % 12.0-15.5 788-0) RDW-SD (test code = 43.8 fL 39.0-49.9 88107-1) NRBC x10^3 (test code = See_Comment [Au tomated message] 7885547966) The system [employer] generated this result transmit britney reference range : 10*3/?L. The reference range was not used to interpret this result as normal/abnormal . NRBC/100 WBC (test code See_Comment [Au tomated message] = 4565454986) The system [facility] generated this result transmit britney reference range : 0.0 - 10.0 /100 WBC s. The reference r nicholas was not used to interpret this result as normal/abnormal . IPF % (test code = 7079056779) Lab Interpretation (test Abnormal code = 48121-8) [facility] TUBERCULOSIS COMPLEX PCR 2021-10-23 16:23:29 Test Item Value Reference Range Interpretation Comments Mycobacterium Negative Negative tuberculosis DNA (test code = 75275-8) LUCILLE (test code = LUCILLE) Method performance specifications have not been established for specimens other than SPUTUM. Results for other tested specimen types should be interpreted based on clinical context. Lab Interpretation Normal (test code = 84772-4) [facility] TUBERCULOSIS COMPLEX PCR 2021-10-23 16:23:29 Test Item Value Reference Range Interpretation Comments Mycobacterium Negative Negative tuberculosis DNA (test code = 66457-3) LUCILLE (test code = LUCILLE) Method performance specifications have not been established for specimens other than SPUTUM. Results for other tested specimen types should be interpreted based on clinical context. Lab Interpretation Normal (test code = 47769-5) [facility] Alice[facility] PAN[facility] BY [id number] 20:36:40 Test Item Value Reference Range Interpretation Comments Adenovirus (test code = Negative Negative 72136-1) Coronavirus HKU1 (test Negative Negative code = 85224-0) Coronavirus NL63 (test Negative Negative code = 91424-6) Coronavirus 229E (test Negative Negative code = 64883-5) Coronavirus OC43 (test Negative Negative code = 35296-6) Human Metapneumovirus Negative Negative (test code = 15400-1) Human Negative Negative Rhinovirus/Enterovirus (test code = 34226-8) Influenza A (test code = Negative Negative 18816-4) Influenza B (test code = Negative Negative 20917-6) Parainfluenza Virus 1 Negative Negative (test code = 25423-7) Parainfluenza Virus 2 Negative Negative (test code = 87787-7) Parainfluenza Virus 3 Negative Negative (test code = 87877-1) Parainfluenza Virus 4 Negative Negative (test code = 08554-6) Respiratory Syncytial Negative Negative Virus (test code = 38489-4) Bordetella parapertussis Negative Negative (test code = 31532-9) Bordetella pertussis Negative Negative (test code = 99819-9) Chlamydia pneumoniae Negative Negative (test code = 53485-4) Mycoplasma pneumoniae Negative Negative (test code = 52272-8) LUCILLE (test code = LUCILLE) Negative:A negative result does not rule-out infection. ?This assay does not test for all potential infectious agents. ? Positive:A positive test result does not necessarily indicate the presence of viable organism. ? Lab Interpretation (test Normal code = 58225-8) [facility] BY [id number] 20:36:40 Test Item Value Reference Range Interpretation Comments Adenovirus (test code = Negative Negative 89912-0) Coronavirus HKU1 (test Negative Negative code = 71406-5) Coronavirus NL63 (test Negative Negative code = 91050-2) Coronavirus 229E (test Negative Negative code = 12556-0) Coronavirus OC43 (test Negative Negative code = 90013-7) Human Metapneumovirus Negative Negative (test code = 18064-8) Human Negative Negative Rhinovirus/Enterovirus (test code = 42206-9) Influenza A (test code = Negative Negative 99736-2) Influenza B (test code = Negative Negative 07470-5) Parainfluenza Virus 1 Negative Negative (test code = 99241-5) Parainfluenza Virus 2 Negative Negative (test code = 31260-6) Parainfluenza Virus 3 Negative Negative (test code = 24293-4) Parainfluenza Virus 4 Negative Negative (test code = 03354-2) Respiratory Syncytial Negative Negative Virus (test code = 99589-4) Bordetella parapertussis Negative Negative (test code = 17446-2) Bordetella pertussis Negative Negative (test code = 63517-7) Chlamydia pneumoniae Negative Negative (test code = 23098-9) Mycoplasma pneumoniae Negative Negative (test code = 81673-9) LUCILLE (test code = LUCILLE) Negative:A negative result does not rule-out infection. ?This assay does not test for all potential infectious agents. ? Positive:A positive test result does not necessarily indicate the presence of viable organism. ? Lab Interpretation (test Normal code = 03019-2) [facility]CLE[facility]-PATHOLOGIST [id number] 19:52:54ANA - Pathologist InterpretationANA HEp-2 IIFA Pathologist [...] female gender. Clinical correlation is recommended. ? (https://pubmed.ncbi.nlm.nih.gov/23580808/) ? If the patient's clinical cond ition [...] indicated. Juanis Mata MD ?10/22/2021 ?1:52 PM [facility] SERVICESCH[facility] AliceANTI-NUCLEAR ANTIBODY- PATHOLOGIST [id number] 19:52:54ANA - Pathologist InterpretationANA HEp-2 II Pathologist Interpretation Report Patient Name: Nancie Ordonez [...] female gender. Clinical correlation is recommended. ? (https://pubmed.ncbi.nlm.nih.gov/71038683/) ? If the patient's clinical cond ition [...] indicated. Juanis Mata MD ?10/22/2021 ?1:52 PM [facility] WITH [id number] 11:43:17 Test Item Value Reference Range Interpretation Comments WBC (test code = See_Comment H [Automated 9579-2) message] The system which generated this result transmit britney reference range : 4.30 - 11.10 10*3/?L. The reference range was not used to interpret this result as normal/abnormal . RBC (test code = See_Comment [Automated 115-8) message] The system which generated this result [...] RDW-SD (test code = 46.8 fL 39.0-49.9 22882-6) RDW-CV (test code = 14.6 % 12.0-15.5 788-0) PLT (test code = See_Comment H [Automated 777-3) message] The system which generated this result transmit britney reference range : 166 - 358 10*3/ ?L. The reference range was not u sed to interpret th is result as normal/abnormal . MPV (test code = 10.2 fL 9.5-12.9 24990-7) NRBC/100 WBC (test See_Comment [Automat ed code = 1368154297) message] The system which generated this result transmit britney reference range : 0.0 - 10.0 /100 WBCs. The reference range was not used to interpret this result as normal/abnormal . NRBC x10^3 (test code <0.01 See_Comment [Auto mated = 7638600886) message] The system which generated this result transmit britney reference range : 10*3/?L. The reference range was not used to interpret this result as normal/abnormal . GRAN MAT (NEUT) % 93.6 % (test code = 770-8) IMM GRAN % (test code 2.10 % = 1939500005) LYMPH % (test code = 2.8 % 736-9) MONO % (test code = 1.4 % 5905-5) EOS % (test code = 0.0 % 713-8) BASO % (test code = 0.1 % 706-2) GRAN MAT x10^3(ANC) 17.50 10*3/uL 1.88-7.09 H (test code = 9635858294) IMM GRAN x10^3 (test 0.40 10*3/uL 0.00-0.06 H code = 2295644526) LYMPH x10^3 (test code 0.53 10*3/uL 1.32-3.29 L = 731-0) MONO x10^3 (test code 0.26 10*3/uL 0.33-0.92 L = 742-7) EOS x10^3 (test code = <0.03 0.03-0.39 L 711-2) BASO x10^3 (test code <0.03 0.01-0.07 = 704-7) TOXIC CHANGES (test Present A code = 803-7) Lab Interpretation Abnormal (test code = 43069-2) [facility] WITH [id number] 11:43:17 Test Item Value Reference Range Interpretation Comments WBC (test code = See_Comment H [Automated 5890-2) message] The system which generated this result transmit britney reference range : 4.30 - 11.10 10*3/?L. The reference range was not used to interpret this result as normal/abnormal . RBC (test code = See_Comment [Automated 739-8) message] The system which generated this result [...] RDW-SD (test code = 46.8 fL 39.0-49.9 98448-9) RDW-CV (test code = 14.6 % 12.0-15.5 788-0) PLT (test code = See_Comment H [Automated 777-3) message] The system which generated this result transmit britney reference range : 166 - 358 10*3/ ?L. The reference range was not u sed to interpret th is result as normal/abnormal . MPV (test code = 10.2 fL 9.5-12.9 92189-8) NRBC/100 WBC (test See_Comment [Automat ed code = 5985958469) message] The system which generated this result transmit britney reference range : 0.0 - 10.0 /100 WBCs. The reference range was not used to interpret this result as normal/abnormal . NRBC x10^3 (test code <0.01 See_Comment [Auto mated = 2406220303) message] The system which generated this result transmit britney reference range : 10*3/?L. The reference range was not used to interpret this result as normal/abnormal . GRAN MAT (NEUT) % 93.6 % (test code = 770-8) IMM GRAN % (test code 2.10 % = 7153461377) LYMPH % (test code = 2.8 % 736-9) MONO % (test code = 1.4 % 5905-5) EOS % (test code = 0.0 % 713-8) BASO % (test code = 0.1 % 706-2) GRAN MAT x10^3(ANC) 17.50 10*3/uL 1.88-7.09 H (test code = 3000852889) IMM GRAN x10^3 (test 0.40 10*3/uL 0.00-0.06 H code = 2385929386) LYMPH x10^3 (test code 0.53 10*3/uL 1.32-3.29 L = 731-0) MONO x10^3 (test code 0.26 10*3/uL 0.33-0.92 L = 742-7) EOS x10^3 (test code = <0.03 0.03-0.39 L 711-2) BASO x10^3 (test code <0.03 0.01-0.07 = 704-7) TOXIC CHANGES (test Present A code = 803-7) Lab Interpretation Abnormal (test code = 56513-0) [facility] METABOLIC PANEL (NA, K, CL, CO2, GLUCOSE, BUN, CREATININE, CA)2021-10-22 11:20:32 Test Item Value Reference Range Interpretation Comments NA (test code = 136 mmol/L 135-145 7703975844) K (test code = 4.3 mmol/L 3.5-5.0 6893035846) CL (test code = 103 mmol/L 98-108 7890671097) CO2 TOTAL (test code = 26 mmol/L 23-31 7974369436) AGAP (test code = 2-16 7821337689) BUN (test code = 18 mg/dL 7-23 7820819625) GLUCOSE (test code = 185 mg/dL 70-110 H 5083535806) CREATININE (test code = 0.69 mg/dL 0.50-1.04 1912830685) CALCIUM (test code = 7.9 mg/dL 8.6-10.6 L 0793478972) eGFR (test code = mL/min/1.73m2 8904514557) LUCILLE (test code = LUCILLE) Association of [...] tests). Lab Interpretation Abnormal (test code = 44443-5) [facility] Test Item Value Reference Range Interpretation Comments MAGNESIUM (test code = 3440378024) 2.2 mg/dL 1.7-2.4 Lab Interpretation (test code = Normal 11611-1) [facility] METABOLIC PANEL (NA, K, CL, CO2, GLUCOSE, BUN, CREATININE, CA)2021-10-22 11:20:32 Test Item Value Reference Range Interpretation Comments NA (test code = 136 mmol/L 135-145 5530849025) K (test code = 4.3 mmol/L 3.5-5.0 0039709136) CL (test code = 103 mmol/L 98-108 9882996202) CO2 TOTAL (test code = 26 mmol/L 23-31 5833656538) AGAP (test code = 2-16 9130004630) BUN (test code = 18 mg/dL 7-23 5116053052) GLUCOSE (test code = 185 mg/dL 70-110 H 2217824019) CREATININE (test code = 0.69 mg/dL 0.50-1.04 1153783944) CALCIUM (test code = 7.9 mg/dL 8.6-10.6 L 0882089584) eGFR (test code = mL/min/1.73m2 7780184694) LUICLLE (test code = LUCILLE) Association of Glomerular [...] tests). Lab Interpretation Abnormal (test code = 89474-7) [facility] 11:20:32 Test Item Value Reference Range Interpretation Comments MAGNESIUM (test code = 9583377099) 2.2 mg/dL 1.7-2.4 Lab Interpretation (test code = Normal 60165-3) [facility] CULTURE [id number] 23:01:06 Test Item Value Reference Range Interpretation Comments Blood Culture-Aerobic No organisms No growth Previo us (test code = 87969-3) isolated prelim inary verified result was Culture In Progress on 10/16/2021 at 20 02 CSTPrevious preliminary verified result was No growth a t 24 hours on 10/17/2021 at 17 01 CSTPrevious preliminary verified result was No growth a t 48 hours on 10/18/2021 at 17 01 CSTPrevious preliminary verified result was No growth a t 72 hours on 10/19/2021 at 17 02 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 Blood No organisms No growth Previous Culture-Anaerobic isolated preliminar y (test code = 34204-1) verifi ed result was Culture In Progress on 10/16/2021 at 20 02 CSTPrevious preliminary verified result was No growth a t 24 hours on 10/17/2021 at 17 01 CSTPrevious preliminary verified result was No growth a t 48 hours on 10/18/2021 at 17 01 CSTPrevious preliminary verified result was No growth a t 72 hours on 10/19/2021 at 17 02 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 Lab Interpretation Normal (test code = 95574-5) [facility] CULTURE [id number] 23:01:06 Test Item Value Reference Range Interpretation Comments Blood Culture-Aerobic No organisms No growth Previo us (test code = 79774-4) isolated prelim inary verified result was Culture In Progress on 10/16/2021 at 20 02 CSTPrevious preliminary verified result was No growth a t 24 hours on 10/17/2021 at 17 01 CSTPrevious preliminary verified result was No growth a t 48 hours on 10/18/2021 at 17 02 CSTPrevious preliminary verified result was No growth a t 72 hours on 10/19/2021 at 17 02 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 Blood No organisms No growth Previous Culture-Anaerobic isolated preliminar y (test code = 24311-3) verifi ed result was Culture In Progress on 10/16/2021 at 20 02 CSTPrevious preliminary verified result was No growth a t 24 hours on 10/17/2021 at 17 01 CSTPrevious preliminary verified result was No growth a t 48 hours on 10/18/2021 at 17 02 CSTPrevious preliminary verified result was No growth a t 72 hours on 10/19/2021 at 17 02 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 Lab Interpretation Normal (test code = 01309-6) [facility] CULTURE [id number] 23:01:06 Test Item Value Reference Range Interpretation Comments Blood Culture-Aerobic No organisms No growth Previo us (test code = 64982-2) isolated prelim inary verified result was Culture In Progress on 10/16/2021 at 20 02 CSTPrevious preliminary verified result was No growth a t 24 hours on 10/17/2021 at 17 01 CSTPrevious preliminary verified result was No growth a t 48 hours on 10/18/2021 at 17 01 CSTPrevious preliminary verified result was No growth a t 72 hours on 10/19/2021 at 17 02 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 Blood No organisms No growth Previous Culture-Anaerobic isolated preliminar y (test code = 68728-0) verifi ed result was Culture In Progress on 10/16/2021 at 20 02 CSTPrevious preliminary verified result was No growth a t 24 hours on 10/17/2021 at 17 01 CSTPrevious preliminary verified result was No growth a t 48 hours on 10/18/2021 at 17 01 CSTPrevious preliminary verified result was No growth a t 72 hours on 10/19/2021 at 17 02 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 Lab Interpretation Normal (test code = 41896-3) [facility] CULTURE [id number] 23:01:06 Test Item Value Reference Range Interpretation Comments Blood Culture-Aerobic No organisms No growth Previo us (test code = 42165-9) isolated prelim inary verified result was Culture In Progress on 10/16/2021 at 20 02 CSTPrevious preliminary verified result was No growth a t 24 hours on 10/17/2021 at 17 01 CSTPrevious preliminary verified result was No growth a t 48 hours on 10/18/2021 at 17 02 CSTPrevious preliminary verified result was No growth a t 72 hours on 10/19/2021 at 17 02 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 Blood No organisms No growth Previous Culture-Anaerobic isolated preliminar y (test code = 60345-2) verifi ed result was Culture In Progress on 10/16/2021 at 20 02 CSTPrevious preliminary verified result was No growth a t 24 hours on 10/17/2021 at 17 01 CSTPrevious preliminary verified result was No growth a t 48 hours on 10/18/2021 at 17 02 CSTPrevious preliminary verified result was No growth a t 72 hours on 10/19/2021 at 17 02 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 The reference range was not used to interpret this result as normal/abnormal . PO2 (test code = See_Comment H [Automated 5328259791) message] The sy stem which generated this result transmitted reference range : 80 - 100 mmHg. The reference range was not used to interpret this result as normal/abnormal . HCO3 (test code = See_Comment [Automate d 6310584181) message] The sy stem which generated this result transmitted reference range : 22 - 26 mEq/L. The reference range was not used to interpret this result as normal/abnormal . BE (test code = See_Comment [Automated 1401989100) message] The sy stem which generated this result transmitted reference range : -3.0 - 3.0 mEq/ L. The reference r nicholas was not used to interpret this result as normal/abnormal . THB (test code = 12.1 g/dL 12.0-16.0 3511871078) %O2HB (test code = 99.5 % 94.0-99.0 H 9015626786) %COHB ART (test code = 0.1 % 0.0-1.5 5230284791) %METHB ART (test code = 0.1 % 0.4-1.5 L 2459180163) VOL%O2 ART (test code = 17.8 % 15.0-23.0 2469807942) NA (test code = 135 mmol/L 135-145 7318297236) K+ (test code = 4.3 mmol/L 3.5-5.0 2878027154) AC CA IONZ (test code = 4.50 mg/dL 4.50-5.30 9724685542) GLUCOSE (test code = 108 mg/dL 70-110 2481927660) LACTIC ACID (test code 2.19 mmol/L 0.50-2.20 = 9804323673) Lab Interpretation Abnormal (test code = 49022-6) [facility] LACTIC [id number] 20:42:21 Test Item Value Reference Range Interpretation Comments PH (test code = 2) 7.35-7.45 PCO2 (test code = See_Comment [Automat ed 9053718089) message] The sy stem which generated this result transmitted reference range : 35 - 45 mmHg. The reference range was not used to interpret this result as normal/abnormal . PO2 (test code = See_Comment H [Automated 1039806438) message] The sy stem which generated this result transmitted reference range : 80 - 100 mmHg. The reference range was not used to interpret this result as normal/abnormal . HCO3 (test code = See_Comment [Automate d 4689520296) message] The sy stem which generated this result transmitted reference range : 22 - 26 mEq/L. The reference range was not used to interpret this result as normal/abnormal . BE (test code = See_Comment [Automated 1930873982) message] The sy stem which generated this result transmitted reference range : -3.0 - 3.0 mEq/ L. The reference r nicholas was not used to interpret this result as normal/abnormal . THB (test code = 12.1 g/dL 12.0-16.0 5272237913) %O2HB (test code = 99.5 % 94.0-99.0 H 4723432784) %COHB ART (test code = 0.1 % 0.0-1.5 7307213730) %METHB ART (test code = 0.1 % 0.4-1.5 L 9014663742) VOL%O2 ART (test code = 17.8 % 15.0-23.0 3284654143) NA (test code = 135 mmol/L 135-145 9586002888) K+ (test code = 4.3 mmol/L 3.5-5.0 0687087155) AC CA IONZ (test code = 4.50 mg/dL 4.50-5.30 6141807020) GLUCOSE (test code = 108 mg/dL 70-110 3624639855) LACTIC ACID (test code 2.19 mmol/L 0.50-2.20 = 0718298308) Lab Interpretation Abnormal (test code = 38581-6) [facility] [id number] 20:19:53 Test Item Value Reference Range Interpretation Comments MELLY (test code = 28 U/L 9-67 Performed B y: ARUP 2742-5) [address] [place], [place] [address]Hznonwqisp Director: Korin Barillas MD [facility] [id number] 20:19:53 Test Item Value Reference Range Interpretation Comments MELLY (test code = 28 U/L 9-67 Performed B y: ARUP 2742-5) [address] [place] [address]Gnmlkbqhor Director: Korin Barillas MD [facility] FLUID MANUAL [id number] 19:44:45 Test Item Value Reference Range Interpretation Comments BF SEGS% (test code = 96424-1) 2 % BF LYMPHS% (test code = 76095-0) 12 % BF MACROPHAGE% (test code = 44049-6) 86 % BF #CELLS CNTD (test code = 2605966357) cells/uL [facility] FLUID MANUAL [id number] 19:44:45 Test Item Value Reference Range Interpretation Comments BF SEGS% (test code = 52028-7) 2 % BF LYMPHS% (test code = 87642-9) 12 % BF MACROPHAGE% (test code = 84843-4) 86 % BF #CELLS CNTD (test code = 7452170958) cells/uL [facility] [id number] 19:44:30 Test Item Value Reference Range Interpretation Comments BF COLOR Clear (test code = 4588420146) BF WBC Count See_Comment [Automated (test code = message] The sy stem 4111572196) which generated this result transmitted reference range : /?L. The refere nce range was not u sed to interpret th is result as normal/abnormal . BF RBC Count <3000 See_Comment [Automated (test code = message] The sy stem 8011291018) which generated this result transmitted reference range : /?L. The refere nce range was not u sed to interpret th is result as normal/abnormal . LUCILLE (test The reference range code = LUCILLE) and other method performance specifications have not been established for this body fluid. ?The test results must be integrated into the clinical context for interpretation. [facility] FLUID DIRECT [id number] 19:44:30 Test Item Value Reference Range Interpretation Comments BF COLOR Clear (test code = 9938961206) BF WBC Count See_Comment [Automated (test code = message] The sy stem 6064129020) which generated this result transmitted reference range : /?L. The refere nce range was not u sed to interpret th is result as normal/abnormal . BF RBC Count <3000 See_Comment [Automated (test code = message] The sy stem 5470919258) which generated this result transmitted reference range : /?L. The refere nce range was not u sed to interpret th is result as normal/abnormal . LUCILLE (test The reference range code = LUCILLE) and other method performance specifications have not been established for this body fluid. ?The test results must be integrated into the clinical context for interpretation. [facility] WITH [id number] 19:27:30 Test Item Value Reference Range Interpretation [...] RDW-SD (test code = 45.8 fL 39.0-49.9 50023-1) RDW-CV (test code = 14.4 % 12.0-15.5 788-0) PLT (test code = See_Comment H [Automated 777-3) message] The system which generated this result transmit britney reference range : 166 - 358 10*3/ ?L. The reference range was not u sed to interpret th is result as normal/abnormal . MPV (test code = 10.4 fL 9.5-12.9 48225-2) NRBC/100 WBC (test See_Comment [Automat ed code = 4971578372) message] The system which generated this result transmit britney reference range : 0.0 - 10.0 /100 WBCs. The reference range was not used to interpret this result as normal/abnormal . NRBC x10^3 (test code See_Comment [Auto mated = 3263680862) message] The system which generated this result transmit britney reference range : 10*3/?L. The reference range was not used to interpret this result as normal/abnormal . SEG % (test code = 84 % 33-76 H 70768-8) BAND % (test code = 8 % 0-1 H 41055-6) MYELO % (test code = 2 % See_Comment H [Autom ated 54677-9) message] The system which generated this result transmit britney reference range : <=0. The refere nce range was not u sed to interpret th is result as normal/abnormal . LYMPH % (test code = 4 % 14-54 L 20265-0) MONO % (test code = 2 % 0-4 28107-6) ANC (test code = 21.16 10*3/uL 1.88-7.09 H 753-4) Lab Interpretation Abnormal (test code = 33979-9) [facility] WITH [id number] 19:27:30 Test Item Value Reference Range Interpretation [...] RDW-SD (test code = 45.8 fL 39.0-49.9 63262-1) RDW-CV (test code = 14.4 % 12.0-15.5 788-0) PLT (test code = See_Comment H [Automated 777-3) message] The system which generated this result transmit britney reference range : 166 - 358 10*3/ ?L. The reference range was not u sed to interpret th is result as normal/abnormal . MPV (test code = 10.4 fL 9.5-12.9 47062-6) NRBC/100 WBC (test See_Comment [Automat ed code = 6313445058) message] The system which generated this result transmit britney reference range : 0.0 - 10.0 /100 WBCs. The reference range was not used to interpret this result as normal/abnormal . NRBC x10^3 (test code See_Comment [Auto mated = 4847370148) message] The system which generated this result transmit britney reference range : 10*3/?L. The reference range was not used to interpret this result as normal/abnormal . SEG % (test code = 84 % 33-76 H 08611-9) BAND % (test code = 8 % 0-1 H 04839-9) MYELO % (test code = 2 % See_Comment H [Autom ated 04206-9) message] The system which generated this result transmit britney reference range : <=0. The refere nce range was not u sed to interpret th is result as normal/abnormal . LYMPH % (test code = 4 % 14-54 L 81080-7) MONO % (test code = 2 % 0-4 51007-2) ANC (test code = 21.16 10*3/uL 1.88-7.09 H 753-4) Lab Interpretation Abnormal (test code = 66069-8) [facility] METABOLIC PANEL (NA, K, CL, CO2, GLUCOSE, BUN, CREATININE, CA)2021-10-21 19:20:26 Test Item Value Reference Range Interpretation Comments NA (test code = 125 mmol/L 135-145 L 4284977837) K (test code = 4.4 mmol/L 3.5-5.0 Slight 2991887049) hemolysis CL (test code = 98 mmol/L 98-108 6898567715) CO2 TOTAL (test code 19 mmol/L 23-31 L = 1572565408) AGAP (test code = 2-16 2796211345) BUN (test code = 21 mg/dL 7-23 Slight 7967501703) hemolysis GLUCOSE (test code = 155 mg/dL 70-110 H 4025584483) CREATININE (test code 0.63 mg/dL 0.50-1.04 = 7433068099) CALCIUM (test code = 6.9 mg/dL 8.6-10.6 L 2646940786) eGFR (test code = mL/min/1.73m2 2052067482) LUCILLE (test code = LUCILLE) Association of [...] tests). Lab Interpretation Abnormal (test code = 09837-3) [facility] (NA, K, CL, CO2, GLUCOSE, BUN, CREATININE, CA)2021-10-21 19:20:26 Test Item Value Reference Range Interpretation Comments NA (test code = 125 mmol/L 135-145 L 6792650056) K (test code = 4.4 mmol/L 3.5-5.0 Slight 7954238555) hemolysis CL (test code = 98 mmol/L 98-108 2592910617) CO2 TOTAL (test code 19 mmol/L 23-31 L = 1114526598) AGAP (test code = 2-16 1332228868) BUN (test code = 21 mg/dL 7-23 Slight 7133134444) hemolysis GLUCOSE (test code = 155 mg/dL 70-110 H 3844943698) CREATININE (test code 0.63 mg/dL 0.50-1.04 = 7676172148) CALCIUM (test code = 6.9 mg/dL 8.6-10.6 L 9931001477) eGFR (test code = mL/min/1.73m2 4639287692) LUCILLE (test code = LUCILLE) Association of [...] tests). Lab Interpretation Abnormal (test code = 27232-6) [facility] 19:12:03 Test Item Value Reference Range Interpretation Comments Fibrinogen (test code = 7218226873) 585 mg/dL 167-453 H Lab Interpretation (test code = Abnormal 74621-2) [facility] AlicePROTHROMBIN [facility] / [id number] 19:12:03 Test Item Value Reference Range Interpretation Comments PROTIME PATIENT (test See_Comment H [Auto mated message] code = 5964-2) The system [employer] generated this result transmitted ref erence range: 10.1 - 1 2.6 Seconds. The reference range was not used to int erpret this result as normal/abnormal . INR (test code = 6301-6) Nor mal INR <1.1; Warfarin Therap eutic range 2.0 to 3. 0 or 2.5 to 3.5, dep ending upon the indica tions. Lab Interpretation (test Abnormal code = 32781-2) [facility] 19:12:03 Test Item Value Reference Range Interpretation Comments Fibrinogen (test code = 2997503177) 585 mg/dL 167-453 H Lab Interpretation (test code = Abnormal 08471-8) [facility] / [id number] 19:12:03 Test Item Value Reference Range Interpretation Comments PROTIME PATIENT (test See_Comment H [Auto mated message] code = 5964-2) The system [employer] generated this result transmitted ref erence range: 10.1 - 1 2.6 Seconds. The reference range was not used to int erpret this result as normal/abnormal . INR (test code = 6301-6) Nor mal INR <1.1; Warfarin Therap eutic range 2.0 to 3. 0 or 2.5 to 3.5, dep ending upon the indica tions. Lab Interpretation (test Abnormal code = 87032-1) [facility] [id number] 04:54:18 Test Item Value Reference Range Interpretation Comments URIC ACID (test code = 3396815657) 4.3 mg/dL 2.9-6.0 Lab Interpretation (test code = Normal 92217-7) [facility] [id number] 04:54:18 Test Item Value Reference Range Interpretation Comments URIC ACID (test code = 6321481306) 4.3 mg/dL 2.9-6.0 Lab Interpretation (test code = Normal 07160-2) [facility] Alice[facility]ansthor[facility] (TTE)2021-10-20 20:54:06 Test Item Value Reference Range Interpretation Comments EF(Teich) (test code = 63.80 % 7209532240) LVIDD (test code = 4.40 cm 3599271809) LVIDS (test code = 2.90 cm 9632054960) IVS (test code = 0.86 cm 2543081705) LVPWD (test code = 0.86 cm 7504008423) LVOT diameter (test code 2.00 cm = 1495770481) FS (test code = 35 % 2008308685) LA size (test code = 3.4 cm 6166488272) LAV(MOD-sp4) (test code = 41.40 mL 5815921255) Ao root annulus (test 2.44 cm code = 1050751117) Ao root diam (test code = 2.44 cm 7227772510) Aortic root (test code = 2.44 cm 5082962800) PW (test code = 0.86 cm 0.6-1.7 8314490978) EF - 2D (test code = 63.80 % 84356361) Interventricular Septum 0.86 cm Diastolic Thickness by 2D (test code = 7855151) Radiology Study observation (narrative) (test code = 54460-2) LUCILLE (test code = LUCILLE) ?Left?Ventricle: Left ventricle is normal in size and function. Normal wall thickness. Normal systolic function with a visually estimated EF of 55 - 60%. ?Aortic?Valve: Aortic valve is normal in structure and function. ?Mitral?Valve: Mitral valve is normal in structure and function. VitalsHeight Weight BSA (Calculated - sq m) BP Pulse 60 220lb ? ?114/63 81 [facility]2021-10-20 20:54:06 Test Item Value Reference Range Interpretation Comments EF(Teich) (test code = 63.80 % 4849751525) LVIDD (test code = 4.40 cm 1663901295) LVIDS (test code = 2.90 cm 1266656853) IVS (test code = 0.86 cm 0346497595) LVPWD (test code = 0.86 cm 3182928247) LVOT diameter (test code 2.00 cm = 5060367356) FS (test code = 35 % 4241034844) LA size (test code = 3.4 cm 4087073812) LAV(MOD-sp4) (test code = 41.40 mL 2202604449) Ao root annulus (test 2.44 cm code = 9434169472) Ao root diam (test code = 2.44 cm 1051389220) Aortic root (test code = 2.44 cm 7099714760) PW (test code = 0.86 cm 0.6-1.1 9446339788) EF - 2D (test code = 63.80 % 02416010) Interventricular Septum 0.86 cm Diastolic Thickness by 2D (test code = 8163894) Radiology Study observation (narrative) (test code = 93495-9) LUCILLE (test code = LUCILLE) ?Left?Ventricle: Left ventricle is normal in size and function. Normal wall thickness. Normal systolic function with a visually estimated EF of 55 - 60%. ?Aortic?Valve: Aortic valve is normal in structure and function. ?Mitral?Valve: Mitral valve is normal in structure and function. VitalsHeight Weight BSA (Calculated - sq m) BP Pulse 60 220lb ? ?114/63 81 [facility] WITH [id number] 11:09:20 Test Item Value Reference Range Interpretation Comments WBC (test code = See_Comment H [Automated 0690-2) message] The system which generated this result transmit britnye reference range : 4.30 - 11.10 10*3/?L. The reference range was not used to interpret this result as normal/abnormal . RBC (test code = See_Comment L [Automated 009-8) message] The system which generated this result [...] RDW-SD (test code = 46.3 fL 39.0-49.9 33453-4) RDW-CV (test code = 14.5 % 12.0-15.5 788-0) PLT (test code = See_Comment [Automated 237-3) message] The system which generated this result transmit britney reference range : 166 - 358 10*3/ ?L. The reference range was not u sed to interpret th is result as normal/abnormal . MPV (test code = 9.9 fL 9.5-12.9 64131-3) NRBC/100 WBC (test See_Comment [Automat ed code = 9421446691) message] The system which generated this result transmit britney reference range : 0.0 - 10.0 /100 WBCs. The reference range was not used to interpret this result as normal/abnormal . NRBC x10^3 (test code <0.01 See_Comment [Auto mated = 9831756111) message] The system which generated this result transmit britney reference range : 10*3/?L. The reference range was not used to interpret this result as normal/abnormal . GRAN MAT (NEUT) % 89.9 % (test code = 770-8) IMM GRAN % (test code 2.90 % = 2120663342) LYMPH % (test code = 4.2 % 736-9) MONO % (test code = 2.9 % 5905-5) EOS % (test code = 0.0 % 713-8) BASO % (test code = 0.1 % 706-2) GRAN MAT x10^3(ANC) 14.51 10*3/uL 1.88-7.09 H (test code = 8389530187) IMM GRAN x10^3 (test 0.46 10*3/uL 0.00-0.06 H code = 2291343912) LYMPH x10^3 (test code 0.67 10*3/uL 1.32-3.29 L = 731-0) MONO x10^3 (test code 0.47 10*3/uL 0.33-0.92 = 742-7) EOS x10^3 (test code = <0.03 0.03-0.39 L 711-2) BASO x10^3 (test code <0.03 0.01-0.07 = 704-7) TOXIC CHANGES (test Present A code = 803-7) Lab Interpretation Abnormal (test code = 76556-7) [facility] WITH [id number] 11:09:20 Test Item Value Reference Range Interpretation [...] RDW-SD (test code = 46.3 fL 39.0-49.9 06528-3) RDW-CV (test code = 14.5 % 12.0-15.5 788-0) PLT (test code = See_Comment [Automated 777-3) message] The system which generated this result transmit britney reference range : 166 - 358 10*3/ ?L. The reference range was not u sed to interpret th is result as normal/abnormal . MPV (test code = 9.9 fL 9.5-12.9 84600-3) NRBC/100 WBC (test See_Comment [Automat ed code = 7739254485) message] The system which generated this result transmit britney reference range : 0.0 - 10.0 /100 WBCs. The reference range was not used to interpret this result as normal/abnormal . NRBC x10^3 (test code <0.01 See_Comment [Auto mated = 1740327898) message] The system which generated this result transmit britney reference range : 10*3/?L. The reference range was not used to interpret this result as normal/abnormal . GRAN MAT (NEUT) % 89.9 % (test code = 770-8) IMM GRAN % (test code 2.90 % = 6942551276) LYMPH % (test code = 4.2 % 736-9) MONO % (test code = 2.9 % 5905-5) EOS % (test code = 0.0 % 713-8) BASO % (test code = 0.1 % 706-2) GRAN MAT x10^3(ANC) 14.51 10*3/uL 1.88-7.09 H (test code = 9766194401) IMM GRAN x10^3 (test 0.46 10*3/uL 0.00-0.06 H code = 7855338940) LYMPH x10^3 (test code 0.67 10*3/uL 1.32-3.29 L = 731-0) MONO x10^3 (test code 0.47 10*3/uL 0.33-0.92 = 742-7) EOS x10^3 (test code = <0.03 0.03-0.39 L 711-2) BASO x10^3 (test code <0.03 0.01-0.07 = 704-7) TOXIC CHANGES (test Present A code = 803-7) Lab Interpretation Abnormal (test code = 07153-2) [facility] METABOLIC PANEL (NA, K, CL, CO2, GLUCOSE, BUN, CREATININE, CA)2021-10-20 10:55:22 Test Item Value Reference Range Interpretation Comments NA (test code = 136 mmol/L 135-145 1444255975) K (test code = 4.1 mmol/L 3.5-5.0 9137181447) CL (test code = 108 mmol/L 98-108 8521913867) CO2 TOTAL (test code = 25 mmol/L 23-31 6362636747) AGAP (test code = 2-16 3641983697) BUN (test code = 23 mg/dL 7-23 7204782350) GLUCOSE (test code = 134 mg/dL 70-110 H 3770166502) CREATININE (test code = 0.67 mg/dL 0.50-1.04 0617677649) CALCIUM (test code = 7.5 mg/dL 8.6-10.6 L 4322246937) eGFR (test code = mL/min/1.73m2 2551707296) LUCILLE (test code = LUCILLE) Association of [...] tests). Lab Interpretation Abnormal (test code = 58697-5) [facility] METABOLIC PANEL (NA, K, CL, CO2, GLUCOSE, BUN, CREATININE, CA)2021-10-20 10:55:22 Test Item Value Reference Range Interpretation Comments NA (test code = 136 mmol/L 135-145 3674690877) K (test code = 4.1 mmol/L 3.5-5.0 9251304054) CL (test code = 108 mmol/L 98-108 1546493841) CO2 TOTAL (test code = 25 mmol/L 23-31 6072993731) AGAP (test code = 2-16 3506146776) BUN (test code = 23 mg/dL 7-23 7651322137) GLUCOSE (test code = 134 mg/dL 70-110 H 2662326173) CREATININE (test code = 0.67 mg/dL 0.50-1.04 7252484060) CALCIUM (test code = 7.5 mg/dL 8.6-10.6 L 4362073123) eGFR (test code = mL/min/1.73m2 3009011457) LUCILLE (test code = LUCILLE) Association of [...] tests). Lab Interpretation Abnormal (test code = 90311-6) [facility] [id number] 21:49:45 Test Item Value Reference Range Interpretation Comments ANTI-DSDNA (test code See_Comment [Auto mated = 9786945152) message] The system which generated this result transmit britney reference range : 0.0 - 4.0 IU/mL . The reference range was not u sed to interpret th is result as normal/abnormal . LUCILLE (test code = LUCILLE) Negative ? ?< or = 4 IU/mLPositive ? ? ?> or = 10 IU/mLIndetermin ate ?5-9 IU/mL Lab Interpretation Normal (test code = 90870-3) [facility] [id number] 21:49:45 Test Item Value Reference Range Interpretation Comments ANTI-DSDNA (test code See_Comment [Auto mated = 5267701174) message] The system which generated this result transmit britney reference range : 0.0 - 4.0 IU/mL . The reference range was not u sed to interpret th is result as normal/abnormal . LUCILLE (test code = LUCILLE) Negative ? ?< or = 4 IU/mLPositive ? ? ?> or = 10 IU/mLIndetermin ate ?5-9 IU/mL Lab Interpretation Normal (test code = 89580-1) [id number] 21:43:06 Test Item Value Reference Range Interpretation Comments RF (test code = <20 See_Comment [Automated message] 7917124199) The system [employer] generated this result transmitted ref erence range: <20 IU/m L. The reference range was not used to int erpret this result as normal/abnormal . Lab Interpretation (test Normal code = 92221-7) [facility] [id number] 21:43:06 Test Item Value Reference Range Interpretation Comments RF (test code = <20 See_Comment [Automated message] 8065513442) The system [employer] generated this result transmitted ref erence range: <20 IU/m L. The reference range was not used to int erpret this result as normal/abnormal . Lab Interpretation (test Normal code = 98537-8) [facility] [id number] 20:22:55 Test Item Value Reference Range Interpretation Comments SHIRA Titer by IFA <=1:80 (test code = 2406478587) SHIRA Pattern (test SHIRA screen was positive code = 2174388273) at the 1:80 dilution but with low [...] specimen will be held for 7 days. [facility] [id number] 20:22:55 Test Item Value Reference Range Interpretation Comments SHIRA Titer by IFA <=1:80 (test code = 1242429030) SHIRA Pattern (test SHIRA screen was positive code = 8306305725) at the 1:80 dilution but with low [...] specimen will be held for [address] [facility] [id number] 18:12:04 Test Item Value Reference Range Interpretation Comments Myeloperoxidase (MPO) Negative Negative Antibodies, IgG Interpretation (test code = 02477-6) Proteinase 3 (PR3) Negative Negative Antibodies, IgG Interpretation (test code = 02549-0) Myeloperoxidase (MPO) <0.3 See_Comment [Auto mated Antibodies, IgG (test messag e] The code = 1275302257) system [facility] generated this result transmitted reference range : <=3.5 U/mL. The reference range was not used to interpret this result as normal/abnormal . Proteinase 3 (PR3) <0.7 See_Comment [Automat ed Antibodies, IgG (test messag e] The code = 9214128111) system [facility] generated this result transmitted reference range : [...] weeks. Lab Interpretation Normal (test code = 05721-1) [facility] [id number] 18:12:04 Test Item Value Reference Range Interpretation Comments Myeloperoxidase (MPO) Negative Negative Antibodies, IgG Interpretation (test code = 59475-5) Proteinase 3 (PR3) Negative Negative Antibodies, IgG Interpretation (test code = 16902-5) Myeloperoxidase (MPO) <0.3 See_Comment [Auto mated Antibodies, IgG (test messag e] The code = 0917432611) system [facility] generated this result transmitted reference range : <=3.5 U/mL. The reference range was not used to interpret this result as normal/abnormal . Proteinase 3 (PR3) <0.7 See_Comment [Automat ed Antibodies, IgG (test messag e] The code = 0163603177) system [facility] generated this result transmitted reference range : [...] weeks. Lab Interpretation Normal (test code = 40583-1) [facility] Test Item Value Reference Range Interpretation Comments MAGNESIUM (test code = 3384423072) 2.9 mg/dL 1.7-2.4 H Lab Interpretation (test code = Abnormal 87216-1) [facility] 10:47[facility]40 Test Item Value Reference Range Interpretation Comments MAGNESIUM (test code = 6416546314) 2.9 mg/dL 1.7-2.4 H Lab Interpretation (test code = Abnormal 44974-7) [facility] WITH [id number] 09:31:49 Test Item Value Reference Range Interpretation [...] RDW-SD (test code = 45.5 fL 39.0-49.9 94395-8) RDW-CV (test code = 14.4 % 12.0-15.5 788-0) PLT (test code = See_Comment [Automated 777-3) message] The system which generated this result transmit britney reference range : 166 - 358 10*3/ ?L. The reference range was not u sed to interpret th is result as normal/abnormal . MPV (test code = 10.0 fL 9.5-12.9 68552-0) NRBC/100 WBC (test See_Comment [Automat ed code = 8491321497) message] The system which generated this result transmit britney reference range : 0.0 - 10.0 /100 WBCs. The reference range was not used to interpret this result as normal/abnormal . NRBC x10^3 (test code <0.01 See_Comment [Auto mated = 6444653456) message] The system which generated this result transmit britney reference range : 10*3/?L. The reference range was not used to interpret this result as normal/abnormal . GRAN MAT (NEUT) % 93.4 % (test code = 770-8) IMM GRAN % (test code 1.50 % = 1709728648) LYMPH % (test code = 2.4 % 736-9) MONO % (test code = 2.6 % 5905-5) EOS % (test code = 0.0 % 713-8) BASO % (test code = 0.1 % 706-2) GRAN MAT x10^3(ANC) 17.74 10*3/uL 1.88-7.09 H (test code = 9573896411) IMM GRAN x10^3 (test 0.28 10*3/uL 0.00-0.06 H code = 1240875631) LYMPH x10^3 (test code 0.46 10*3/uL 1.32-3.29 L = 731-0) MONO x10^3 (test code 0.50 10*3/uL 0.33-0.92 = 742-7) EOS x10^3 (test code = <0.03 0.03-0.39 L 711-2) BASO x10^3 (test code <0.03 0.01-0.07 = 704-7) TOXIC CHANGES (test Present A code = 803-7) Lab Interpretation Abnormal (test code = 29239-6) [facility] WITH [id number] 09:31:49 Test Item Value Reference Range Interpretation [...] RDW-SD (test code = 45.5 fL 39.0-49.9 43975-2) RDW-CV (test code = 14.4 % 12.0-15.5 788-0) PLT (test code = See_Comment [Automated 777-3) message] The system which generated this result transmit britney reference range : 166 - 358 10*3/ ?L. The reference range was not u sed to interpret th is result as normal/abnormal . MPV (test code = 10.0 fL 9.5-12.9 76362-5) NRBC/100 WBC (test See_Comment [Automat ed code = 4423333468) message] The system which generated this result transmit britney reference range : 0.0 - 10.0 /100 WBCs. The reference range was not used to interpret this result as normal/abnormal . NRBC x10^3 (test code <0.01 See_Comment [Auto mated = 6038334655) message] The system which generated this result transmit britney reference range : 10*3/?L. The reference range was not used to interpret this result as normal/abnormal . GRAN MAT (NEUT) % 93.4 % (test code = 770-8) IMM GRAN % (test code 1.50 % = 5566475783) LYMPH % (test code = 2.4 % 736-9) MONO % (test code = 2.6 % 5905-5) EOS % (test code = 0.0 % 713-8) BASO % (test code = 0.1 % 706-2) GRAN MAT x10^3(ANC) 17.74 10*3/uL 1.88-7.09 H (test code = 2169933251) IMM GRAN x10^3 (test 0.28 10*3/uL 0.00-0.06 H code = 8105019961) LYMPH x10^3 (test code 0.46 10*3/uL 1.32-3.29 L = 731-0) MONO x10^3 (test code 0.50 10*3/uL 0.33-0.92 = 742-7) EOS x10^3 (test code = <0.03 0.03-0.39 L 711-2) BASO x10^3 (test code <0.03 0.01-0.07 = 704-7) TOXIC CHANGES (test Present A code = 803-7) Lab Interpretation Abnormal (test code = 58735-1) [facility] METABOLIC PANEL (NA, K, CL, CO2, GLUCOSE, BUN, CREATININE, CA)2021-10-19 09:25:48 Test Item Value Reference Range Interpretation Comments NA (test code = 144 mmol/L 135-145 9301285190) K (test code = 4.5 mmol/L 3.5-5.0 2728137344) CL (test code = 111 mmol/L 98-108 H 0302370024) CO2 TOTAL (test code = 27 mmol/L 23-31 5635156195) AGAP (test code = 2-16 9128324390) BUN (test code = 30 mg/dL 7-23 H 7854355382) GLUCOSE (test code = 159 mg/dL 70-110 H 6071428012) CREATININE (test code = 0.81 mg/dL 0.50-1.04 5987641830) CALCIUM (test code = 8.2 mg/dL 8.6-10.6 L 5200433660) eGFR (test code = mL/min/1.73m2 2152481688) LUCILLE (test code = LUCILLE) Association of [...] tests). Lab Interpretation Abnormal (test code = 43705-9) [facility] METABOLIC PANEL (NA, K, CL, CO2, GLUCOSE, BUN, CREATININE, CA)2021-10-19 09:25:48 Test Item Value Reference Range Interpretation Comments NA (test code = 144 mmol/L 135-145 1922581858) K (test code = 4.5 mmol/L 3.5-5.0 0280118362) CL (test code = 111 mmol/L 98-108 H 3836631098) CO2 TOTAL (test code = 27 mmol/L 23-31 9865094965) AGAP (test code = 2-16 1733530287) BUN (test code = 30 mg/dL 7-23 H 0999303616) GLUCOSE (test code = 159 mg/dL 70-110 H 8262547834) CREATININE (test code = 0.81 mg/dL 0.50-1.04 6731003082) CALCIUM (test code = 8.2 mg/dL 8.6-10.6 L 9302160029) eGFR (test code = mL/min/1.73m2 7112075102) LUCILLE (test code = LUCILLE) Association of [...] tests). Lab Interpretation Abnormal (test code = 08099-9) [facility] GLUCOSE (AUTOMATED)2021-10-19 02:29:39 Test Item Value Reference Range Interpretation Comments POCT GLU (test code = 7319234954) 159 mg/dL 70-110 H Lab Interpretation (test code = Abnormal 33486-3) General acute hospital GLUCOSE (AUTOMATED)2021-10-19 02:29:39 Test Item Value Reference Range Interpretation Comments POCT GLU (test code = 1549029623) 159 mg/dL 70-110 H Lab Interpretation (test code = Abnormal 50865-1) [id number] 22:06:05 Test Item Value Reference Range Interpretation Comments SHIRA (test code = Positive Negative A 0795549559) LUCILLE (test code = LUCILLE) Negative - No Anti-Nuclear Antibodies detected by IFA.Positive - SHIRA IFA screen performed with a 1:80 dilution in adults and a 1:40 dilution in pediatrics. Any SHIRA "Positive" will have titer performed and reported separately. Lab Interpretation (test Abnormal code = 53335-1) [facility] [id number] 22:06:05 Test Item Value Reference Range Interpretation Comments SHIRA (test code = Positive Negative A 8103211083) LUCILLE (test code = LUCILLE) Negative - No Anti-Nuclear Antibodies detected by IFA.Positive - SHIRA IFA screen performed with a 1:80 dilution in adults and a 1:40 dilution in pediatrics. Any SHIRA "Positive" will have titer performed and reported separately. Lab Interpretation (test Abnormal code = 28548-5) [facility]2021-10-18 17:16:16 Test Item Value Reference Range Interpretation Comments HGB A1C (test code = 6.0 % 4.0-5.7 H 4548-4) LUCILLE (test code = LUCILLE) Reference RangesNormal: <5.7%Prediabetes: 5.7 - 6.4%Diabetes: > 6.5% Lab Interpretation (test Abnormal code = 08282-1) [facility]2021-10-18 17:16:16 Test Item Value Reference Range Interpretation Comments HGB A1C (test code = 6.0 % 4.0-5.7 H 4548-4) LUCILLE (test code = LUCILLE) Reference RangesNormal: <5.7%Prediabetes: 5.7 - 6.4%Diabetes: > 6.5% Lab Interpretation (test Abnormal code = 62516-4) [facility] [id number] 10:21:29 Test Item Value Reference Range Interpretation [...] RDW-SD (test code = 44.0 fL 39.0-49.9 51017-0) RDW-CV (test code = 14.1 % 12.0-15.5 788-0) PLT (test code = See_Comment [Automated 777-3) message] The system which generated this result transmit britney reference range : 166 - 358 10*3/ ?L. The reference range was not u sed to interpret th is result as normal/abnormal . MPV (test code = 10.5 fL 9.5-12.9 83085-3) NRBC/100 WBC (test See_Comment [Automat ed code = 8917583105) message] The system which generated this result transmit britney reference range : 0.0 - 10.0 /100 WBCs. The reference range was not used to interpret this result as normal/abnormal . NRBC x10^3 (test code <0.01 See_Comment [Auto mated = 0206070738) message] The system which generated this result transmit britney reference range : 10*3/?L. The reference range was not used to interpret this result as normal/abnormal . GRAN MAT (NEUT) % 94.3 % (test code = 770-8) IMM GRAN % (test code 1.00 % = 9193728516) LYMPH % (test code = 2.1 % 736-9) MONO % (test code = 2.5 % 5905-5) EOS % (test code = 0.0 % 713-8) BASO % (test code = 0.1 % 706-2) GRAN MAT x10^3(ANC) 18.69 10*3/uL 1.88-7.09 H (test code = 1665609575) IMM GRAN x10^3 (test 0.20 10*3/uL 0.00-0.06 H code = 3360875005) LYMPH x10^3 (test code 0.42 10*3/uL 1.32-3.29 L = 731-0) MONO x10^3 (test code 0.50 10*3/uL 0.33-0.92 = 742-7) EOS x10^3 (test code = <0.03 0.03-0.39 L 711-2) BASO x10^3 (test code <0.03 0.01-0.07 = 704-7) TOXIC CHANGES (test Present A code = 803-7) Lab Interpretation Abnormal (test code = 88498-5) [facility] WITH [id number] 10:21:29 Test Item Value Reference Range Interpretation [...] RDW-SD (test code = 44.0 fL 39.0-49.9 00054-3) RDW-CV (test code = 14.1 % 12.0-15.5 788-0) PLT (test code = See_Comment [Automated 777-3) message] The system which generated this result transmit britney reference range : 166 - 358 10*3/ ?L. The reference range was not u sed to interpret th is result as normal/abnormal . MPV (test code = 10.5 fL 9.5-12.9 42149-0) NRBC/100 WBC (test See_Comment [Automat ed code = 8400780424) message] The system which generated this result transmit britney reference range : 0.0 - 10.0 /100 WBCs. The reference range was not used to interpret this result as normal/abnormal . NRBC x10^3 (test code <0.01 See_Comment [Auto mated = 9437102176) message] The system which generated this result transmit britney reference range : 10*3/?L. The reference range was not used to interpret this result as normal/abnormal . GRAN MAT (NEUT) % 94.3 % (test code = 770-8) IMM GRAN % (test code 1.00 % = 0741346491) LYMPH % (test code = 2.1 % 736-9) MONO % (test code = 2.5 % 5905-5) EOS % (test code = 0.0 % 713-8) BASO % (test code = 0.1 % 706-2) GRAN MAT x10^3(ANC) 18.69 10*3/uL 1.88-7.09 H (test code = 3318327497) IMM GRAN x10^3 (test 0.20 10*3/uL 0.00-0.06 H code = 0939708670) LYMPH x10^3 (test code 0.42 10*3/uL 1.32-3.29 L = 731-0) MONO x10^3 (test code 0.50 10*3/uL 0.33-0.92 = 742-7) EOS x10^3 (test code = <0.03 0.03-0.39 L 711-2) BASO x10^3 (test code <0.03 0.01-0.07 = 704-7) TOXIC CHANGES (test Present A code = 803-7) Lab Interpretation Abnormal (test code = 55766-2) [facility] METABOLIC PANEL (NA, K, CL, CO2, GLUCOSE, BUN, CREATININE, CA)2021-10-18 09:49:57 Test Item Value Reference Range Interpretation Comments NA (test code = 141 mmol/L 135-145 8789556087) K (test code = 4.9 mmol/L 3.5-5.0 3407548063) CL (test code = 107 mmol/L 98-108 4439221321) CO2 TOTAL (test code = 26 mmol/L 23-31 0344180584) AGAP (test code = 2-16 2128630119) BUN (test code = 30 mg/dL 7-23 H 1507013821) GLUCOSE (test code = 166 mg/dL 70-110 H 3014116456) CREATININE (test code = 0.76 mg/dL 0.50-1.04 7834766585) CALCIUM (test code = 8.2 mg/dL 8.6-10.6 L 2252517141) eGFR (test code = mL/min/1.73m2 3271168120) LUCILLE (test code = LUCILLE) Association of [...] tests). Lab Interpretation Abnormal (test code = 28021-4) [facility] 09:49:57 Test Item Value Reference Range Interpretation Comments MAGNESIUM (test code = 7911713654) 3.0 mg/dL 1.7-2.4 H Lab Interpretation (test code = Abnormal 42912-8) [facility] 09:49:57 Test Item Value Reference Range Interpretation Comments PHOSPHORUS (test code = 4372194906) 4.0 mg/dL 2.5-5.0 Lab Interpretation (test code = Normal 80415-3) [facility] (NA, K, CL, CO2, GLUCOSE, BUN, CREATININE, CA)2021-10-18 09:49:57 Test Item Value Reference Range Interpretation Comments NA (test code = 141 mmol/L 135-145 2298174776) K (test code = 4.9 mmol/L 3.5-5.0 9334651432) CL (test code = 107 mmol/L 98-108 5530447025) CO2 TOTAL (test code = 26 mmol/L 23-31 1355683411) AGAP (test code = 2-16 2502596670) BUN (test code = 30 mg/dL 7-23 H 6886735553) GLUCOSE (test code = 166 mg/dL 70-110 H 1797379993) CREATININE (test code = 0.76 mg/dL 0.50-1.04 5216750311) CALCIUM (test code = 8.2 mg/dL 8.6-10.6 L 0405762427) eGFR (test code = mL/min/1.73m2 8432808734) LUCILLE (test code = LUCILLE) Association of [...] tests). Lab Interpretation Abnormal (test code = 01442-8) [facility] 09:49:57 Test Item Value Reference Range Interpretation Comments MAGNESIUM (test code = 1663779485) 3.0 mg/dL 1.7-2.4 H Lab Interpretation (test code = Abnormal 06998-6) [facility] 09:49:57 Test Item Value Reference Range Interpretation Comments PHOSPHORUS (test code = 1419093808) 4.0 mg/dL 2.5-5.0 Lab Interpretation (test code = Normal 02558-7) [facility] WITH [id number] 02:31:06 Test Item Value Reference Range Interpretation Comments HIV Negative Negative Semi-quantitative (test code = 09053-7) LUCILLE (test code = Non-reactive for HIV-1 LUCILLE) antigen and HIV-1/HIV-2 antibodies. ?No laboratory evidence of HIV infection. ?Repeat in 2-4 weeks if acute HIV infection is suspected. [facility] WITH [id number] 02:31:06 Test Item Value Reference Range Interpretation Comments HIV Negative Negative Semi-quantitative (test code = 64212-9) LUCILLE (test code = Non-reactive for HIV-1 LUCILLE) antigen and HIV-1/HIV-2 antibodies. ?No laboratory evidence of HIV infection. ?Repeat in 2-4 weeks if acute HIV infection is suspected. [facility] (NA, K, CL, CO2, GLUCOSE, BUN, CREATININE, CA)2021-10-18 01:11:26 Test Item Value Reference Range Interpretation Comments NA (test code = 141 mmol/L 135-145 6143524813) K (test code = 4.6 mmol/L 3.5-5.0 5294719420) CL (test code = 106 mmol/L 98-108 0405423728) CO2 TOTAL (test code = 26 mmol/L 23-31 3550787605) AGAP (test code = 2-16 4416039800) BUN (test code = 28 mg/dL 7-23 H 9880129377) GLUCOSE (test code = 180 mg/dL 70-110 H 2356889625) CREATININE (test code = 0.82 mg/dL 0.50-1.04 2544279113) CALCIUM (test code = 8.3 mg/dL 8.6-10.6 L 2763918238) eGFR (test code = mL/min/1.73m2 3786769983) LUCILLE (test code = LUCILLE) Association of [...] tests). Lab Interpretation Abnormal (test code = 04343-6) [facility] METABOLIC PANEL (NA, K, CL, CO2, GLUCOSE, BUN, CREATININE, CA)2021-10-18 01:11:26 Test Item Value Reference Range Interpretation Comments NA (test code = 141 mmol/L 135-145 3892396211) K (test code = 4.6 mmol/L 3.5-5.0 5661007452) CL (test code = 106 mmol/L 98-108 0494715369) CO2 TOTAL (test code = 26 mmol/L 23-31 1253473044) AGAP (test code = 2-16 4354284792) BUN (test code = 28 mg/dL 7-23 H 9861514413) GLUCOSE (test code = 180 mg/dL 70-110 H 5129507550) CREATININE (test code = 0.82 mg/dL 0.50-1.04 2492196387) CALCIUM (test code = 8.3 mg/dL 8.6-10.6 L 8710099550) eGFR (test code = mL/min/1.73m2 6735145161) LUCILLE (test code = LUCILLE) Association of [...] tests). Lab Interpretation Abnormal (test code = 48109-3) [facility] [id number] 22:06:03 Test Item Value Reference Range Interpretation Comments NT-proBNP (test code 250 pg/mL See_Comment H [Autom ated = 2660500044) message] The system which generated this result transmitted reference range : <=125. The reference range was not used to interpret this result as normal/abnormal . LUCILLE (test code = LUCILLE) Biotin has been reported to cause a negative bias, interpret results relative to patient's use of biotin. Lab Interpretation Abnormal (test code = 84588-2) [facility] [id number] 22:06:03 Test Item Value Reference Range Interpretation Comments NT-proBNP (test code 250 pg/mL See_Comment H [Autom ated = 2172946895) message] The system which generated this result transmitted reference range : <=125. The reference range was not used to interpret this result as normal/abnormal . LUCILLE (test code = LUCILLE) Biotin has been reported to cause a negative bias, interpret results relative to patient's use of biotin. Lab Interpretation Abnormal (test code = 13573-0) [facility]+COOX+NA+K+GLU+CA2+2021-10-17 21:42:22 Test Item Value Reference Range Interpretation Comments PH (test code = 2) 7.35-7.45 PCO2 (test code = See_Comment [Automat ed message] 8203769193) The system [employer] generated this result transmit britney reference range : 35 - 45 mmHg. The reference range was not used to interpret this result as normal/abnormal . PO2 (test code = See_Comment H [Automated message] 2502360003) The system [employer] generated this result transmit britney reference range : 80 - 100 mmHg. The reference range was not used to interpret this result as normal/abnormal . HCO3 (test code = See_Comment [Automate d message] 6050729756) The system [employer] generated this result transmit britney reference range : 22 - 26 mEq/L. The reference range was not used to interpret this result as normal/abnormal . BE (test code = See_Comment [Automated message] 2431004325) The system [employer] generated this result transmit britney reference range : -3.0 - 3.0 mEq/ L. The reference r nicholas was not used to interpret this result as normal/abnormal . THB (test code = 13.0 g/dL 12.0-16.0 4755723179) %O2HB (test code = 98.9 % 94.0-99.0 6733888249) %COHB ART (test code = 0.3 % 0.0-1.5 9318733962) %METHB ART (test code = 0.0 % 0.4-1.5 L 2455728577) VOL%O2 ART (test code = 18.5 % 15.0-23.0 3036701187) NA (test code = 139 mmol/L 135-145 4327950175) K+ (test code = 4.6 mmol/L 3.5-5.0 9663362084) AC CA IONZ (test code = 4.50 mg/dL 4.50-5.30 1248248297) GLUCOSE (test code = 166 mg/dL 70-110 H 2274350196) Lab Interpretation Abnormal (test code = 18187-8) [facility]NA+K+GLU+CA2+2021-10-17 21:42:22 Test Item Value Reference Range Interpretation Comments PH (test code = 2) 7.35-7.45 PCO2 (test code = See_Comment [Automat ed message] 3748944548) The system [employer] generated this result transmit britney reference range : 35 - 45 mmHg. The reference range was not used to interpret this result as normal/abnormal . PO2 (test code = See_Comment H [Automated message] 9049862624) The system [employer] generated this result transmit britney reference range : 80 - 100 mmHg. The reference range was not used to interpret this result as normal/abnormal . HCO3 (test code = See_Comment [Automate d message] 1795237437) The system [employer] generated this result transmit britney reference range : 22 - 26 mEq/L. The reference range was not used to interpret this result as normal/abnormal . BE (test code = See_Comment [Automated message] 8771454088) The system [employer] generated this result transmit britney reference range : -3.0 - 3.0 mEq/ L. The reference r nicholas was not used to interpret this result as normal/abnormal . THB (test code = 13.0 g/dL 12.0-16.0 0017241823) %O2HB (test code = 98.9 % 94.0-99.0 3323229137) %COHB ART (test code = 0.3 % 0.0-1.5 7072118469) %METHB ART (test code = 0.0 % 0.4-1.5 L 1164053336) VOL%O2 ART (test code = 18.5 % 15.0-23.0 9548120060) NA (test code = 139 mmol/L 135-145 6284832106) K+ (test code = 4.6 mmol/L 3.5-5.0 7597093964) AC CA IONZ (test code = 4.50 mg/dL 4.50-5.30 6402407945) GLUCOSE (test code = 166 mg/dL 70-110 H 5001122891) Lab Interpretation Abnormal (test code = 66625-5) [facility] WITH [id number] 11:01:03 Test Item Value Reference Range Interpretation Comments WBC (test code = See_Comment H [Automated 6290-2) message] The system which generated this result [...] RDW-SD (test code = 44.5 fL 39.0-49.9 64332-7) RDW-CV (test code = 14.1 % 12.0-15.5 788-0) PLT (test code = See_Comment [Automated 777-3) message] The system which generated this result transmit britney reference range : 166 - 358 10*3/ ?L. The reference range was not u sed to interpret th is result as normal/abnormal . MPV (test code = 11.0 fL 9.5-12.9 40052-9) NRBC/100 WBC (test See_Comment [Automat ed code = 5559205601) message] The system which generated this result transmit britney reference range : 0.0 - 10.0 /100 WBCs. The reference range was not used to interpret this result as normal/abnormal . NRBC x10^3 (test code <0.01 See_Comment [Auto mated = 8464967676) message] The system which generated this result transmit britney reference range : 10*3/?L. The reference range was not used to interpret this result as normal/abnormal . GRAN MAT (NEUT) % 91.6 % (test code = 770-8) IMM GRAN % (test code 1.40 % = 0457744573) LYMPH % (test code = 5.5 % 736-9) MONO % (test code = 1.4 % 5905-5) EOS % (test code = 0.0 % 713-8) BASO % (test code = 0.1 % 706-2) GRAN MAT x10^3(ANC) 17.75 10*3/uL 1.88-7.09 H (test code = 1118281072) IMM GRAN x10^3 (test 0.27 10*3/uL 0.00-0.06 H code = 0415255516) LYMPH x10^3 (test code 1.06 10*3/uL 1.32-3.29 L = 731-0) MONO x10^3 (test code 0.28 10*3/uL 0.33-0.92 L = 742-7) EOS x10^3 (test code = <0.03 0.03-0.39 L 711-2) BASO x10^3 (test code <0.03 0.01-0.07 = 704-7) TOXIC CHANGES (test Present A code = 803-7) Lab Interpretation Abnormal (test code = 61135-2) [facility] WITH [id number] 11:01:03 Test Item Value Reference Range Interpretation [...] RDW-SD (test code = 44.5 fL 39.0-49.9 78813-6) RDW-CV (test code = 14.1 % 12.0-15.5 788-0) PLT (test code = See_Comment [Automated 777-3) message] The system which generated this result transmit britney reference range : 166 - 358 10*3/ ?L. The reference range was not u sed to interpret th is result as normal/abnormal . MPV (test code = 11.0 fL 9.5-12.9 60733-3) NRBC/100 WBC (test See_Comment [Automat ed code = 9120590295) message] The system which generated this result transmit britney reference range : 0.0 - 10.0 /100 WBCs. The reference range was not used to interpret this result as normal/abnormal . NRBC x10^3 (test code <0.01 See_Comment [Auto mated = 8509974367) message] The system which generated this result transmit britney reference range : 10*3/?L. The reference range was not used to interpret this result as normal/abnormal . GRAN MAT (NEUT) % 91.6 % (test code = 770-8) IMM GRAN % (test code 1.40 % = 5788809544) LYMPH % (test code = 5.5 % 736-9) MONO % (test code = 1.4 % 5905-5) EOS % (test code = 0.0 % 713-8) BASO % (test code = 0.1 % 706-2) GRAN MAT x10^3(ANC) 17.75 10*3/uL 1.88-7.09 H (test code = 8975456472) IMM GRAN x10^3 (test 0.27 10*3/uL 0.00-0.06 H code = 0792756170) LYMPH x10^3 (test code 1.06 10*3/uL 1.32-3.29 L = 731-0) MONO x10^3 (test code 0.28 10*3/uL 0.33-0.92 L = 742-7) EOS x10^3 (test code = <0.03 0.03-0.39 L 711-2) BASO x10^3 (test code <0.03 0.01-0.07 = 704-7) TOXIC CHANGES (test Present A code = 803-7) Lab Interpretation Abnormal (test code = 29854-1) [facility] METABOLIC PANEL (NA, K, CL, CO2, GLUCOSE, BUN, CREATININE, CA)2021-10-17 10:54:32 Test Item Value Reference Range Interpretation Comments NA (test code = 135 mmol/L 135-145 4424089563) K (test code = 5.2 mmol/L 3.5-5.0 H Slight 0336594244) hemolysis CL (test code = 101 mmol/L 98-108 8349756441) CO2 TOTAL (test code 27 mmol/L 23-31 = 9867688731) AGAP (test code = 2-16 6641131000) BUN (test code = 21 mg/dL 7-23 Slight 0563257941) hemolysis GLUCOSE (test code = 153 mg/dL 70-110 H 8212994928) CREATININE (test code 0.71 mg/dL 0.50-1.04 = 2881113449) CALCIUM (test code = 8.3 mg/dL 8.6-10.6 L 2546932190) eGFR (test code = mL/min/1.73m2 7612687721) LUCILLE (test code = LUCILLE) Association of [...] tests). Lab Interpretation Abnormal (test code = 18232-5) [facility] 10:54:32 Test Item Value Reference Range Interpretation Comments MAGNESIUM (test code = 9014324035) 2.2 mg/dL 1.7-2.4 Lab Interpretation (test code = Normal 17563-0) [facility] 10:54:32 Test Item Value Reference Range Interpretation Comments PHOSPHORUS (test code = 8285630290) 5.9 mg/dL 2.5-5.0 H Lab Interpretation (test code = Abnormal 52883-0) [facility] (NA, K, CL, CO2, GLUCOSE, BUN, CREATININE, CA)2021-10-17 10:54:32 Test Item Value Reference Range Interpretation Comments NA (test code = 135 mmol/L 135-145 1785964413) K (test code = 5.2 mmol/L 3.5-5.0 H Slight 3364017184) hemolysis CL (test code = 101 mmol/L 98-108 5412713304) CO2 TOTAL (test code 27 mmol/L 23-31 = 7681164562) AGAP (test code = 2-16 0513591919) BUN (test code = 21 mg/dL 7-23 Slight 4993985887) hemolysis GLUCOSE (test code = 153 mg/dL 70-110 H 7390102464) CREATININE (test code 0.71 mg/dL 0.50-1.04 = 7877476974) CALCIUM (test code = 8.3 mg/dL 8.6-10.6 L 5285238324) eGFR (test code = mL/min/1.73m2 2822700775) LUCILLE (test code = LUCILLE) Association of [...] tests). Lab Interpretation Abnormal (test code = 61553-9) [facility] Test Item Value Reference Range Interpretation Comments MAGNESIUM (test code = 7943904834) 2.2 mg/dL 1.7-2.4 Lab Interpretation (test code = Normal 33369-3) [facility]2022-02-14 10:54:32 Test Item Value Reference Range Interpretation Comments PHOSPHORUS (test code = 2667015739) 5.9 mg/dL 2.5-5.0 H Lab Interpretation (test code = Abnormal 44171-2) [facility]2022-02-14 10:53:06 Test Item Value Reference Range Interpretation Comments ESR (test code = See_Comment H [Automated message] [id number]) The system [employer] generated this result transmitted ref erence range: 0 - 20 m m/HR. The reference r nicholas was not used to interpret this result as normal/abnor mal. Lab Interpretation (test Abnormal code = 86648-0) [facility]2022-02-14 10:53:06 Test Item Value Reference Range Interpretation Comments ESR (test code = See_Comment H [Automated message] [id number]) The system [employer] generated this result transmitted ref erence range: 0 - 20 m m/HR. The reference r nicholas was not used to interpret this result as normal/abnor mal. Lab Interpretation (test Abnormal code = 09668-9) [facility]2022-02-13 11:13:05 Test Item Value Reference Range Interpretation Comments MAGNESIUM (test code = 7537390313) 2.3 mg/dL 1.7-2.4 Lab Interpretation (test code = Normal 41301-3) [facility]2022-02-13 11:13:05 Test Item Value Reference Range Interpretation Comments PHOSPHORUS (test code = [id number]) 3.4 mg/dL 2.5-5.0 Lab Interpretation (test code = Normal 80808-9) [facility]2022-02-13 11:13:05 Test Item Value Reference Range Interpretation Comments MAGNESIUM (test code = 4712072944) 2.3 mg/dL 1.7-2.4 Lab Interpretation (test code = Normal 38024-2) [place] [id number] 11:13:05 Test Item Value Reference Range Interpretation Comments PHOSPHORUS (test code = 9481603625) 3.4 mg/dL 2.5-5.0 Lab Interpretation (test code = Normal 49813-0) [facility]NA, K, CL, CO2, GLUCOSE, BUN, CREATININE, CA)2021-10-16 11:13:04 Test Item Value Reference Range Interpretation Comments NA (test code = 135 mmol/L 135-145 8214114104) K (test code = 4.6 mmol/L 3.5-5.0 4948904963) CL (test code = 102 mmol/L 98-108 7049761736) CO2 TOTAL (test code = 29 mmol/L 23-31 3046743587) AGAP (test code = 2-16 8300407715) BUN (test code = 24 mg/dL 7-23 H 5189371214) GLUCOSE (test code = 90 mg/dL 70-110 6193187179) CREATININE (test code = 0.87 mg/dL 0.50-1.04 8223327599) CALCIUM (test code = 8.0 mg/dL 8.6-10.6 L 7758273498) eGFR (test code = mL/min/1.73m2 4918701706) LUCILLE (test code = LUCILLE) Association of [...] tests). Lab Interpretation Abnormal (test code = 06496-7) [facility] METABOLIC PANEL (NA, K, CL, CO2, GLUCOSE, BUN, CREATININE, CA)2021-10-16 11:13:04 Test Item Value Reference Range Interpretation Comments NA (test code = 135 mmol/L 135-145 5642839408) K (test code = 4.6 mmol/L 3.5-5.0 6161964674) CL (test code = 102 mmol/L 98-108 5501310907) CO2 TOTAL (test code = 29 mmol/L 23-31 0338911487) AGAP (test code = 2-16 8403052820) BUN (test code = 24 mg/dL 7-23 H 1874309811) GLUCOSE (test code = 90 mg/dL 70-110 8139416476) CREATININE (test code = 0.87 mg/dL 0.50-1.04 7049828728) CALCIUM (test code = 8.0 mg/dL 8.6-10.6 L 5008463148) eGFR (test code = mL/min/1.73m2 6330732328) LUCILLE (test code = LUCILLE) Association of [...] tests). Lab Interpretation Abnormal (test code = 89124-5) [facility] LACTIC [id number] 10:59:55 Test Item Value Reference Range Interpretation Comments PH (test code = 2) 7.35-7.45 PCO2 (test code = See_Comment [Automat ed 0481887219) message] The sy stem which generated this result transmitted reference range : 35 - 45 mmHg. The reference range was not used to interpret this result as normal/abnormal . PO2 (test code = See_Comment L [Automated 1164814269) message] The sy stem which generated this result transmitted reference range : 80 - 100 mmHg. The reference range was not used to interpret this result as normal/abnormal . HCO3 (test code = See_Comment H [Automate d 6461095197) message] The sy stem which generated this result transmitted reference range : 22 - 26 mEq/L. The reference range was not used to interpret this result as normal/abnormal . BE (test code = See_Comment [Automated 1373447821) message] The sy stem which generated this result transmitted reference range : -3.0 - 3.0 mEq/ L. The reference r nicholas was not used to interpret this result as normal/abnormal . THB (test code = 13.7 g/dL 12.0-16.0 1279331665) %O2HB (test code = 86.3 % 94.0-99.0 L 7719759267) %COHB ART (test code = 0.1 % 0.0-1.5 2570012116) %METHB ART (test code = 0.1 % 0.4-1.5 L 4779227797) VOL%O2 ART (test code = 16.6 % 15.0-23.0 7718198318) NA (test code = 135 mmol/L 135-145 7100380708) K+ (test code = 4.6 mmol/L 3.5-5.0 3791825384) AC CA IONZ (test code = 4.70 mg/dL 4.50-5.30 2761855699) GLUCOSE (test code = 88 mg/dL 70-110 0173716876) LACTIC ACID (test code 1.41 mmol/L 0.50-2.20 QUES = 9313277911) Lab Interpretation Abnormal (test code = 58931-9) [facility] L[facility] [id number] 10:59:55 Test Item Value Reference Range Interpretation Comments PH (test code = 2) 7.35-7.45 PCO2 (test code = See_Comment [Automat ed 9003582299) message] The sy stem which generated this result transmitted reference range : 35 - 45 mmHg. The reference range was not used to interpret this result as normal/abnormal . PO2 (test code = See_Comment L [Automated 3258570213) message] The sy stem which generated this result transmitted reference range : 80 - 100 mmHg. The reference range was not used to interpret this result as normal/abnormal . HCO3 (test code = See_Comment H [Automate d 3395732483) message] The sy stem which generated this result transmitted reference range : 22 - 26 mEq/L. The reference range was not used to interpret this result as normal/abnormal . BE (test code = See_Comment [Automated 1174621464) message] The sy stem which generated this result transmitted reference range : -3.0 - 3.0 mEq/ L. The reference r nicholas was not used to interpret this result as normal/abnormal . THB (test code = 13.7 g/dL 12.0-16.0 8906349655) %O2HB (test code = 86.3 % 94.0-99.0 L 7983047713) %COHB ART (test code = 0.1 % 0.0-1.5 9041479837) %METHB ART (test code = 0.1 % 0.4-1.5 L 2339354171) VOL%O2 ART (test code = 16.6 % 15.0-23.0 0255683856) NA (test code = 135 mmol/L 135-145 9951100615) K+ (test code = 4.6 mmol/L 3.5-5.0 5050499986) AC CA IONZ (test code = 4.70 mg/dL 4.50-5.30 4467775166) GLUCOSE (test code = 88 mg/dL 70-110 1685299610) LACTIC ACID (test code 1.41 mmol/L 0.50-2.20 QUES = 0502109336) Lab Interpretation Abnormal (test code = 63226-8) [facility] WITH [id number] 10:54:01 Test Item Value Reference Range Interpretation Comments WBC (test code = See_Comment H [Automated 0349-2) message] The system which generated this result transmit britney reference range : 4.30 - 11.10 10*3/?L. The reference range was not used to interpret this result as normal/abnormal . RBC (test code = See_Comment [Automated 989-8) message] The system which generated this result [...] RDW-SD (test code = 47.0 fL 39.0-49.9 47226-7) RDW-CV (test code = 14.6 % 12.0-15.5 788-0) PLT (test code = See_Comment [Automated 777-3) message] The system which generated this result transmit britney reference range : 166 - 358 10*3/ ?L. The reference range was not u sed to interpret th is result as normal/abnormal . MPV (test code = 10.5 fL 9.5-12.9 90180-6) NRBC/100 WBC (test See_Comment [Automat ed code = 3233584606) message] The system which generated this result transmit britney reference range : 0.0 - 10.0 /100 WBCs. The reference range was not used to interpret this result as normal/abnormal . NRBC x10^3 (test code See_Comment [Auto mated = 7635415309) message] The system which generated this result transmit britney reference range : 10*3/?L. The reference range was not used to interpret this result as normal/abnormal . GRAN MAT (NEUT) % 85.6 % (test code = 770-8) IMM GRAN % (test code 1.10 % = 3433698707) LYMPH % (test code = 9.7 % 736-9) MONO % (test code = 3.0 % 5905-5) EOS % (test code = 0.5 % 713-8) BASO % (test code = 0.1 % 706-2) GRAN MAT x10^3(ANC) 12.97 10*3/uL 1.88-7.09 H (test code = 3036767319) IMM GRAN x10^3 (test 0.16 10*3/uL 0.00-0.06 H code = 2448485175) LYMPH x10^3 (test code 1.47 10*3/uL 1.32-3.29 = 731-0) MONO x10^3 (test code 0.45 10*3/uL 0.33-0.92 = 742-7) EOS x10^3 (test code = 0.08 10*3/uL 0.03-0.39 711-2) BASO x10^3 (test code <0.03 0.01-0.07 = 704-7) Lab Interpretation Abnormal (test code = 60803-3) [facility] WITH [id number] 10:54:01 Test Item Value Reference Range Interpretation [...] RDW-SD (test code = 47.0 fL 39.0-49.9 72356-3) RDW-CV (test code = 14.6 % 12.0-15.5 788-0) PLT (test code = See_Comment [Automated 777-3) message] The system which generated this result transmit britney reference range : 166 - 358 10*3/ ?L. The reference range was not u sed to interpret th is result as normal/abnormal . MPV (test code = 10.5 fL 9.5-12.9 46390-7) NRBC/100 WBC (test See_Comment [Automat ed code = 9374040024) message] The system which generated this result transmit britney reference range : 0.0 - 10.0 /100 WBCs. The reference range was not used to interpret this result as normal/abnormal . NRBC x10^3 (test code See_Comment [Auto mated = 1510065074) message] The system which generated this result transmit britney reference range : 10*3/?L. The reference range was not used to interpret this result as normal/abnormal . GRAN MAT (NEUT) % 85.6 % (test code = 770-8) IMM GRAN % (test code 1.10 % = 5399684061) LYMPH % (test code = 9.7 % 736-9) MONO % (test code = 3.0 % 5905-5) EOS % (test code = 0.5 % 713-8) BASO % (test code = 0.1 % 706-2) GRAN MAT x10^3(ANC) 12.97 10*3/uL 1.88-7.09 H (test code = 9027647113) IMM GRAN x10^3 (test 0.16 10*3/uL 0.00-0.06 H code = 5648381809) LYMPH x10^3 (test code 1.47 10*3/uL 1.32-3.29 = 731-0) MONO x10^3 (test code 0.45 10*3/uL 0.33-0.92 = 742-7) EOS x10^3 (test code = 0.08 10*3/uL 0.03-0.39 711-2) BASO x10^3 (test code <0.03 0.01-0.07 = 704-7) Lab Interpretation Abnormal (test code = 28502-0) [facility]-REACTIVE [id number] 23:24:07 Test Item Value Reference Range Interpretation Comments CRP (test code = 1855615708) 22.1 mg/dL <1.0 H Lab Interpretation (test code = Abnormal 77780-5) [facility]-REACTIVE [id number] 23:24:07 Test Item Value Reference Range Interpretation Comments CRP (test code = 3386215776) 22.1 mg/dL <1.0 H Lab Interpretation (test code = Abnormal 98741-6) [facility] [id number] 23:21:42 Test Item Value Reference Interpretation Comments Range TROPONIN I (test 0.003 ng/mL See_Comment [Automated code = 9848888715) message] The system which generated this result [...] biotin. Lab Interpretation Normal (test code = 49491-5) [facility] [id number] 23:21:42 Test Item Value Reference Interpretation Comments Range TROPONIN I (test 0.003 ng/mL See_Comment [Automated code = 3244902116) message] The system which generated this result [...] biotin. Lab Interpretation Normal (test code = 53716-7) [facility] (NA, K, CL, CO2, GLUCOSE, BUN, CREATININE, CA)2021-10-15 23:12:40 Test Item Value Reference Range Interpretation Comments NA (test code = 136 mmol/L 135-145 6164621062) K (test code = 4.8 mmol/L 3.5-5.0 4965093909) CL (test code = 104 mmol/L 98-108 3388524090) CO2 TOTAL (test code = 26 mmol/L 23-31 1459537477) AGAP (test code = 2-16 9804776401) BUN (test code = 22 mg/dL 7-23 8358831420) GLUCOSE (test code = 114 mg/dL 70-110 H 0843061573) CREATININE (test code = 0.77 mg/dL 0.50-1.04 5020642928) CALCIUM (test code = 8.2 mg/dL 8.6-10.6 L 1457128218) eGFR (test code = mL/min/1.73m2 9594046414) LUCILLE (test code = LUCILLE) Association of [...] tests). Lab Interpretation Abnormal (test code = 90882-3) [facility] METABOLIC PANEL (NA, K, CL, CO2, GLUCOSE, BUN, CREATININE, CA)2021-10-15 23:12:40 Test Item Value Reference Range Interpretation Comments NA (test code = 136 mmol/L 135-145 0390317745) K (test code = 4.8 mmol/L 3.5-5.0 9308835733) CL (test code = 104 mmol/L 98-108 2738160587) CO2 TOTAL (test code = 26 mmol/L 23-31 9107468279) AGAP (test code = 2-16 6591829255) BUN (test code = 22 mg/dL 7-23 7290756880) GLUCOSE (test code = 114 mg/dL 70-110 H 5220845418) CREATININE (test code = 0.77 mg/dL 0.50-1.04 8476069562) CALCIUM (test code = 8.2 mg/dL 8.6-10.6 L 8387822795) eGFR (test code = mL/min/1.73m2 9025201629) LUCILLE (test code = LUCILLE) Association of [...] tests). Lab Interpretation Abnormal (test code = 09576-9) [facility] [id number] 21:55:57 Test Item Value Reference Interpretation Comments Range TROPONIN I (test 0.003 ng/mL See_Comment [Automated code = 9668893217) message] The system which generated this result [...] biotin. Lab Interpretation Normal (test code = 56418-1) [facility] [id number] 21:55:57 Test Item Value Reference Interpretation Comments Range TROPONIN I (test 0.003 ng/mL See_Comment [Automated code = 9768214063) message] The system which generated this result [...] biotin. Lab Interpretation Normal (test code = 97830-6) [facility]2022-02-12 19:07:46 Test Item Value Reference Range Interpretation Comments Procalcitonin (test 0.15 ng/mL <0.08 H code = 8692509335) LUCILLE (test code = LUCILLE) INTERPRETATION OF [...] lung abscess/empyema. For further information please refer to:[email or web address] Lab Interpretation Abnormal (test code = 43373-5) [facility]2022-[facility]-12 19:07:46 Test Item Value Reference Range Interpretation Comments Procalcitonin (test 0.15 ng/mL <0.08 H code = 0697740707) LUCILLE (test code = LUCILLE) INTERPRETATION OF [...] lung abscess/empyema. For further information please refer to:[email or web address] Lab Interpretation Abnormal (test code = 43427-7) [facility] [id number] 18:31:24 Test Item Value Reference Range Interpretation Comments NT-proBNP (test code 43 pg/mL See_Comment [Autom ated = 7471251300) message] The system which generated this result transmitted reference range : <=125. The reference range was not used to interpret this result as normal/abnormal . LUCILLE (test code = LUCILLE) Biotin has been reported to cause a negative bias, interpret results relative to patient's use of biotin. Lab Interpretation Normal (test code = 84999-5) [facility] [id number] 18:31:24 Test Item Value Reference Range Interpretation Comments NT-proBNP (test code 43 pg/mL See_Comment [Autom ated = 4772140567) message] The system which generated this result transmitted reference range : <=125. The reference range was not used to interpret this result as normal/abnormal . LUCILLE (test code = LUCILLE) Biotin has been reported to cause a negative bias, interpret results relative to patient's use of biotin. Lab Interpretation Normal (test code = 85593-5) [facility]2022-[facility]-12 09:17:58 Test Item Value Reference Range Interpretation Comments Procalcitonin (test 0.15 ng/mL <0.08 H code = 0395045702) LUCILLE (test code = LUCILLE) INTERPRETATION OF [...] lung abscess/empyema. For further information please refer to:[email or web address] Lab Interpretation Abnormal (test code = 41665-2) [facility]cal[facility]2022-[facility]-12 09:17:58 Test Item Value Reference Range Interpretation Comments Procalcitonin (test 0.15 ng/mL <0.08 H code = 8330362426) LUCILLE (test code = LUCILLE) INTERPRETATION OF [...] lung abscess/empyema. For further information please refer to:[email or web address] Lab Interpretation Abnormal (test code = 17496-1) [facility] METABOLIC PANEL (NA, K, CL, CO2, GLUCOSE, BUN, CREATININE, CA)2021-10-15 08:36:11 Test Item Value Reference Range Interpretation Comments NA (test code = 139 mmol/L 135-145 1916958704) K (test code = 5.5 mmol/L 3.5-5.0 H Slight 9399476027) hemolysis CL (test code = 104 mmol/L 98-108 6742592507) CO2 TOTAL (test code 29 mmol/L 23-31 = 0590120951) AGAP (test code = 2-16 7371753217) BUN (test code = 17 mg/dL 7-23 Slight 2506329614) hemolysis GLUCOSE (test code = 131 mg/dL 70-110 H 4037721320) CREATININE (test code 0.77 mg/dL 0.50-1.04 = 5954179469) CALCIUM (test code = 8.5 mg/dL 8.6-10.6 L 6805971508) eGFR (test code = mL/min/1.73m2 3780335611) LUCILLE (test code = LUCILLE) Association of [...] tests). Lab Interpretation Abnormal (test code = 15799-7) [facility] [id number] 08:36:11 Test Item Value Reference Range Interpretation Comments MAGNESIUM (test code = 6332962187) 2.4 mg/dL 1.7-2.4 Lab Interpretation (test code = Normal 65468-4) [facility] (NA, K, CL, CO2, GLUCOSE, BUN, CREATININE, CA)2021-10-15 08:36:11 Test Item Value Reference Range Interpretation Comments NA (test code = 139 mmol/L 135-145 9640124807) K (test code = 5.5 mmol/L 3.5-5.0 H Slight 9611206802) hemolysis CL (test code = 104 mmol/L 98-108 6823126290) CO2 TOTAL (test code 29 mmol/L 23-31 = 1044902538) AGAP (test code = 2-16 8423056353) BUN (test code = 17 mg/dL 7-23 Slight 5650784985) hemolysis GLUCOSE (test code = 131 mg/dL 70-110 H 0756414769) CREATININE (test code 0.77 mg/dL 0.50-1.04 = 7318728039) CALCIUM (test code = 8.5 mg/dL 8.6-10.6 L 2065473005) eGFR (test code = mL/min/1.73m2 7748946958) LUCILLE (test code = LUCILLE) Association of [...] tests). Lab Interpretation Abnormal (test code = 87479-6) [facility] [id number] 08:36:11 Test Item Value Reference Range Interpretation Comments MAGNESIUM (test code = 4701981249) 2.4 mg/dL 1.7-2.4 Lab Interpretation (test code = Normal 36050-8) [facility] [id number] 08:21:08 Test Item Value Reference Interpretation Comments Range TROPONIN I (test 0.005 ng/mL See_Comment [Automated code = 3040440123) message] The system which generated this result [...] biotin. Lab Interpretation Normal (test code = 48826-5) [facility] [id number] 08:21:08 Test Item Value Reference Interpretation Comments Range TROPONIN I (test 0.005 ng/mL See_Comment [Automated code = 5084791196) message] The system which generated this result [...] biotin. Lab Interpretation Normal (test code = 03380-8) [facility] WITH [id number] 07:37:26 Test Item Value Reference Range Interpretation [...] RDW-SD (test code = 47.4 fL 39.0-49.9 52463-1) RDW-CV (test code = 14.6 % 12.0-15.5 788-0) PLT (test code = See_Comment [Automated 777-3) message] The system which generated this result transmit britney reference range : 166 - 358 10*3/ ?L. The reference range was not u sed to interpret th is result as normal/abnormal . MPV (test code = 11.1 fL 9.5-12.9 70008-8) NRBC/100 WBC (test See_Comment [Automat ed code = 0339173925) message] The system which generated this result transmit britney reference range : 0.0 - 10.0 /100 WBCs. The reference range was not used to interpret this result as normal/abnormal . NRBC x10^3 (test code <0.01 See_Comment [Auto mated = 2284579767) message] The system which generated this result transmit britney reference range : 10*3/?L. The reference range was not used to interpret this result as normal/abnormal . GRAN MAT (NEUT) % 92.0 % (test code = 770-8) IMM GRAN % (test code 1.10 % = 3027945100) LYMPH % (test code = 5.0 % 736-9) MONO % (test code = 1.8 % 5905-5) EOS % (test code = 0.0 % 713-8) BASO % (test code = 0.1 % 706-2) GRAN MAT x10^3(ANC) 20.65 10*3/uL 1.88-7.09 H (test code = 3153573856) IMM GRAN x10^3 (test 0.25 10*3/uL 0.00-0.06 H code = 7314047102) LYMPH x10^3 (test code 1.13 10*3/uL 1.32-3.29 L = 731-0) MONO x10^3 (test code 0.40 10*3/uL 0.33-0.92 = 742-7) EOS x10^3 (test code = <0.03 0.03-0.39 L 711-2) BASO x10^3 (test code 0.03 10*3/uL 0.01-0.07 = 704-7) Lab Interpretation Abnormal (test code = 68814-9) [facility] WITH [id number] 07:37:26 Test Item Value Reference Range Interpretation Comments WBC (test code = See_Comment H [Automated 9890-2) message] The system which generated this result transmit britney reference range : 4.30 - 11.10 10*3/?L. The reference range was not used to interpret this result as normal/abnormal . RBC (test code = See_Comment [Automated 869-8) message] The system which generated this result [...] RDW-SD (test code = 47.4 fL 39.0-49.9 87994-9) RDW-CV (test code = 14.6 % 12.0-15.5 788-0) PLT (test code = See_Comment [Automated 777-3) message] The system which generated this result transmit britney reference range : 166 - 358 10*3/ ?L. The reference range was not u sed to interpret th is result as normal/abnormal . MPV (test code = 11.1 fL 9.5-12.9 42837-4) NRBC/100 WBC (test See_Comment [Automat ed code = 7178625248) message] The system which generated this result transmit britney reference range : 0.0 - 10.0 /100 WBCs. The reference range was not used to interpret this result as normal/abnormal . NRBC x10^3 (test code <0.01 See_Comment [Auto mated = 3600208928) message] The system which generated this result transmit britney reference range : 10*3/?L. The reference range was not used to interpret this result as normal/abnormal . GRAN MAT (NEUT) % 92.0 % (test code = 770-8) IMM GRAN % (test code 1.10 % = 5890040790) LYMPH % (test code = 5.0 % 736-9) MONO % (test code = 1.8 % 5905-5) EOS % (test code = 0.0 % 713-8) BASO % (test code = 0.1 % 706-2) GRAN MAT x10^3(ANC) 20.65 10*3/uL 1.88-7.09 H (test code = 5389859908) IMM GRAN x10^3 (test 0.25 10*3/uL 0.00-0.06 H code = 7972650993) LYMPH x10^3 (test code 1.13 10*3/uL 1.32-3.29 L = 731-0) MONO x10^3 (test code 0.40 10*3/uL 0.33-0.92 = 742-7) EOS x10^3 (test code = <0.03 0.03-0.39 L 711-2) BASO x10^3 (test code 0.03 10*3/uL 0.01-0.07 = 704-7) Lab Interpretation Abnormal (test code = 93660-1) [facility]+GLU[facility]CA2+2021-10-15 07:28:14 Test Item Value Reference Range Interpretation Comments PH (test code = 2) 7.35-7.45 PCO2 (test code = See_Comment [Automat ed message] 0132593167) The system [employer] generated this result transmit britney reference range : 35 - 45 mmHg. The reference range was not used to interpret this result as normal/abnormal . PO2 (test code = See_Comment H [Automated message] 2750320788) The system [employer] generated this result transmit britney reference range : 80 - 100 mmHg. The reference range was not used to interpret this result as normal/abnormal . HCO3 (test code = See_Comment [Automate d message] 2965851503) The system [employer] generated this result transmit britney reference range : 22 - 26 mEq/L. The reference range was not used to interpret this result as normal/abnormal . BE (test code = See_Comment [Automated message] 6169528091) The system [employer] generated this result transmit britney reference range : -3.0 - 3.0 mEq/ L. The reference r nicholas was not used to interpret this result as normal/abnormal . THB (test code = 13.1 g/dL 12.0-16.0 4802407751) %O2HB (test code = 98.7 % 94.0-99.0 8996006136) %COHB ART (test code = 0.4 % 0.0-1.5 1667296848) %METHB ART (test code = 0.0 % 0.4-1.5 L 1523272191) VOL%O2 ART (test code = 18.5 % 15.0-23.0 QUES 6409511787) NA (test code = 138 mmol/L 135-145 6469445401) K+ (test code = 5.0 mmol/L 3.5-5.0 4313923458) AC CA IONZ (test code = 4.50 mg/dL 4.50-5.30 8518300953) GLUCOSE (test code = 138 mg/dL 70-110 H 9114080425) Lab Interpretation Abnormal (test code = 27580-0) [facility]K+GLU+CA2+2021-10-15 07:28:14 Test Item Value Reference Range Interpretation Comments PH (test code = 2) 7.35-7.45 PCO2 (test code = See_Comment [Automat ed message] 0805222652) The system [email or web address] generated this result transmit britney reference range : 35 - 45 mmHg. The reference range was not used to interpret this result as normal/abnormal . PO2 (test code = See_Comment H [Automated message] 0101208833) The system [employer] generated this result transmit britney reference range : 80 - 100 mmHg. The reference range was not used to interpret this result as normal/abnormal . HCO3 (test code = See_Comment [Automate d message] 8605266557) The system [employer] generated this result transmit britney reference range : 22 - 26 mEq/L. The reference range was not used to interpret this result as normal/abnormal . BE (test code = See_Comment [Automated message] 8022491667) The system [employer] generated this result transmit britney reference range : -3.0 - 3.0 mEq/ L. The reference r nicholas was not used to interpret this result as normal/abnormal . THB (test code = 13.1 g/dL 12.0-16.0 4106488106) %O2HB (test code = 98.7 % 94.0-99.0 7505496150) %COHB ART (test code = 0.4 % 0.0-1.5 0054793406) %METHB ART (test code = 0.0 % 0.4-1.5 L 8078873329) VOL%O2 ART (test code = 18.5 % 15.0-23.0 QUES 0373495672) NA (test code = 138 mmol/L 135-145 4436420631) K+ (test code = 5.0 mmol/L 3.5-5.0 0575744665) AC CA IONZ (test code = 4.50 mg/dL 4.50-5.30 7039774865) GLUCOSE (test code = 138 mg/dL 70-110 H 0754271619) Lab Interpretation Abnormal (test code = 87476-4) [facility]
[2021-11-15 21:49] LABS: Arterial Blood Carboxyhemoglob 2.4 % (0-1.5); Blood Gas Oxyhemoglobin 91.2 % (94-97); Blood O2 Saturation 94.8 % (92-98.5)
--- NOTE | 2021-11-15 22:18 | RAD REPORT ---
EXAM DESCRIPTION: RAD - Chest Single View - 11/15/2021 10:05 pm CLINICAL HISTORY: SOB Chest pain. COMPARISON: Chest Single View dated 11/08/2021; Chest Single View dated 11/04/2021; Chest Single View da britney 07/12/2021; Chest Single View dated 05/18/2021 FINDINGS: Portable technique limits examination quality. Mild to moderate bilateral pulmonary opacities are present likely representing pneumonia. Heart is up per limit normal in size. No displaced fractures. IMPRESSION: Mild progressive bilateral pulmonary opacities since prior study, suspicious for pneumon ia.
[2021-11-15 22:53] LABS: Absolute Lymphocytes (CBC) 2.2 K/uL (0.7-4.9); Hematocrit 31.8 % (36.0-45.0); Lymphocytes % 13.6 % (15.3-44.8); MPV 7.7 fL (7.6-11.3); Protime INR 0.92; RBC Red Blood Cell Count 3.62 M/uL (3.86-4.86)
[2021-11-15 22:55] LABS: ALT/SGPT 139 U/L (12-78); AST/SGOT 104 U/L (15-37); Alkaline Phosphatase 124 U/L (45-117); BUN Blood Urea Nitrogen 27 mg/dL (7-18); Bicarbonate 25 mmol/L (21-32); Bilirubin Total 0.2 mg/dL (0.2-1.0); Glucose Level 136 mg/dL (74-106); Magnesium 2.3 mg/dL (1.8-2.4); NT PRO-BNP 137 pg/mL (<125); Potassium 4.7 mmol/L (3.5-5.1); Protein, Total 6.3 g/dL (6.4-8.2); Sodium Level 143 mmol/L (136-145)
[2021-11-15 22:58] LABS: Bilirubin Direct < 0.1 mg/dL (0-0.2)
[2021-11-15 23:02] LABS: Urine Blood Trace-intact (Negative); Urine Glucose Negative (Negative); Urine Protein Negative (Negative); Urine Specific Gravity 1.025 (1.005-1.030); Urine pH 6.5 (5.0-7.0)
[2021-11-15] MEDS ORDERED: ONDANSETRON 4 MG/2 ML VIAL ONE (23:15)
[2021-11-15] MEDS ORDERED: MORPHINE 4 MG/ML SYR ONE (23:15)
[2021-11-15] MEDS ORDERED: ALBUTEROL 2.5 MG/3 ML NEB SOL ONE (23:15)
[2021-11-15] MEDS ORDERED: NA CHLORIDE 0.9% 1,000 ML ONE (23:15)
[2021-11-15 23:32] LABS: SARS-COV-2 RT PCR NEGATIVE (NEGATIVE)
[2021-11-15 23:45] LABS: Urine Bacteria <20 /HPF (<20)
[2021-11-15 23:46] LABS: Urine Specific Gravity/Preg 1.025 (1.005-1.030)
--- NOTE | 2021-11-16 00:13 | EDPHYS ---
Physician Documentation [facility] Name: Nancie Ordonez Age: 50 yrs Sex: Female : 1970 Arrival Date: 11/15/2021 Time: 20:36 Bed 18 Private MD: ED Physician Yuniel Mccray HPI: 11/15 22:17 This 50 yrs old Black Female presents to ER via Wheelchair with complaints of Chest mh7 Pain, Pain All Over. 22:17 The patient or guardian reports chest pain that is located primarily in the substernal mh7 area. Onset: 4 day(s) ago. The pain does not radiate. Associated signs and symptoms: Pertinent positives: cough, shortness of breath, Body aches, Pertinent negatives: abdominal pain, diaphoresis, dizziness, headache, lower extremity pain, lower extremity swelling, lightheadedness, nausea, near syncope, palpitations, recent travel, syncope, vomiting. The chest pain is described as aching. Duration: The patient or guardian reports multiple episodes, that are intermittent, that wax and wane, with no pattern. Modifying factors: The symptoms are alleviated by nothing. the symptoms are aggravated by nothing. Severity of pain: At its worst the pain was moderate 3 day(s) ago, in the emergency department the pain has improved moderately. Patient reports being treated for pneumonia at another hospital in the past couple weeks. She states that she still has some chest pain and shortness of breath and body aches. She was discharged from the outside hospital 4 days ago and is currently still taking Augmentin. Denies any fever, headache, abdominal pain, nausea, vomiting, diarrhea, dysuria, dizziness, numbness/tingling, or focal weakness.. 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 - Social history:: Smoking status: Patient denies any tobacco usage or history of. ROS: 22:17 Constitutional: Negative for fever, chills, and weight loss, Eyes: Negative for injury, mh7 pain, redness, and discharge, ENT: Negative for injury, pain, and discharge, Neck: Negative for injury, pain, and swelling, Abdomen/GI: Negative for abdominal pain, nausea, vomiting, diarrhea, and constipation, Back: Negative for injury and pain, : Negative for injury, bleeding, discharge, and swelling, MS/Extremity: Negative for injury and deformity, Skin: Negative for injury, rash, and discoloration, Neuro: Negative for headache, weakness, numbness, tingling, and seizure, Psych: Negative for depression, anxiety, suicide ideation, homicidal ideation, and hallucinations, Allergy/Immunology: Negative for hives, rash, and allergies, Endocrine: Negative for neck swelling, polydipsia, polyuria, polyphagia, and marked weight changes, Hematologic/Lymphatic: Negative for swollen nodes, abnormal bleeding, and unusual bruising. Exam: 22:17 Constitutional: This is a well developed, well nourished patient who is awake, alert, mh7 and in no acute distress. Head/Face: Normocephalic, atraumatic. Eyes: Pupils equal round and reactive to light, extra-ocular motions intact. Lids and lashes normal. Conjunctiva and sclera are non-icteric and not injected. Cornea within normal limits. Periorbital areas with no swelling, redness, or edema. Neck: Trachea midline, no thyromegaly or masses palpated, and no cervical lymphadenopathy. Supple, full range of motion without nuchal rigidity, or vertebral point tenderness. No Meningismus. Chest/axilla: Normal chest wall appearance and motion. Nontender with no deformity. No lesions are appreciated. 22:17 Respiratory: Lungs have equal breath sounds bilaterally, clear to auscultation and percussion. No rales, rhonchi or wheezes noted. No increased work of breathing, no retractions or nasal flaring. Abdomen/GI: Soft, non-tender, with normal bowel sounds. No distension or tympany. No guarding or rebound. No evidence of tenderness throughout. Back: No spinal tenderness. No costovertebral tenderness. Full range of motion. Skin: Warm, dry with normal turgor. Normal color with no rashes, no lesions, and no evidence of cellulitis. MS/ Extremity: Pulses equal, no cyanosis. Neurovascular intact. Full, normal range of motion. Neuro: Awake and alert, GCS 15, oriented to person, place, time, and situation. Cranial nerves II-XII grossly intact. Motor strength 5/5 in all extremities. Sensory grossly intact. Cerebellar exam normal. Normal gait. Psych: Awake, alert, with orientation to person, place and time. Behavior, mood, and affect are within normal limits. 22:17 Cardiovascular: Rate: tachycardic, Rhythm: regular, Pulses: no pulse deficits are appreciated, Heart sounds: normal, normal S1and S2, Edema: is not appreciated, JVD: is not appreciated. 22:45 ECG was reviewed by the Attending Physician. [facility] Vital Signs: 20:41 BP 125 / 71; Pulse 124; Resp 24; Temp 98.4(TE); Pulse Ox 96% ; Weight 86.18 kg; Height ab2 5 ft. 3 in. (160.02 cm); Pain 10/10; 21:16 BP 131 / 81 LA Supine (auto/reg); Pulse 118 MON; Resp 16 S; Temp 98.9(O); Pulse Ox 98% sv1 on R/A; 23:30 BP 132 / 72 RA Supine (auto/reg); Pulse 111 MON; Resp 17 S; Pulse Ox 100% on R/A; Pain sv1 3/10; 23:30 BP 136 / 73 RA Supine (auto/reg); Pulse 113 MON; Resp 17 S; Temp 98.8; Pulse Ox 97% on sv1 R/A; Pain 3/10; 20:41 Body Mass Index 33.66 (86.18 kg, 160.02 cm) ab2 MDM: 11/16 00:10 Differential diagnosis: acute myocardial infarction, acute pericarditis, anxiety, 7 coronary artery disease chest wall pain, congestive heart failure costochondritis, esophagitis, gastritis, gastroesophageal reflux disease (GERD), pericarditis, pleurisy, pneumonia, pneumothorax. HEART Score: History: Slightly Suspicious (0), ECG: Non specific repolarization disturbance / LBTB / PM (1), Age: > 45 and < 65 years (1), Risk Factors: 1 or 2 risk factors (1), [Hypertension] Troponin: < or = 1 x Normal Limit (0), Total Score = 3. Data reviewed: vital signs, nurses notes, old medical records, lab test result(s), cardiac enzymes, CBC, electrolytes, EKG, radiologic studies, plain films. Data interpreted: Pulse oximetry: on room air is 98 %. Interpretation: normal. Counseling: I had a detailed discussion with the patient and/or guardian regarding: the historical points, exam findings, and any diagnostic results supporting the discharge/admit diagnosis, lab results, radiology results, the need for outpatient follow up, to return to the emergency department if symptoms worsen or persist or if there are any questions or concerns that arise at home. Response to treatment: the patient's symptoms have markedly improved after treatment, the patient is now symptom free, patient is well hydrated. Refusal of service: The patient/guardian displays adequate decision making capability and despite a detailed discussion of alternatives, benefits, risks, and consequences refuses: CT Scan. 00:12 Patient medically screened. [facility] 00:16 ED course: Feels better, well-appearing, no acute distress, vitals are stable, no focal [facility] neurological deficits. No chest pain, shortness of breath, nausea, vomiting, or other complaints. Patient declined any further treatment or testing and request to be discharged from the ED at this time. She reports that she has a known appointment with her local doctor scheduled for tomorrow. Advised her to keep appointment with her lung doctor but may return to ED if worsening symptoms or other urgent concerns.. 11/15 21:20 Order name: Basic Metabolic Panel; Complete Time: 23:04 [facility] 11/15 21:20 Order name: CBC with Diff; Complete Time: 22:58 [facility] 11/15 21:20 Order name: LFT's; Complete Time: 23:04 [facility] 11/15 21:20 Order name: Magnesium; Complete Time: 23:16 [facility] 11/15 21:20 Order name: NT PRO-BNP; Complete Time: 23:16 [facility] 11/15 21:20 Order name: PT-INR; Complete Time: 22:58 [facility] 11/15 21:20 Order name: Troponin HS; Complete Time: 23:16 [facility] 11/15 21:20 Order name: Blood Culture Adult (2) [facility] 11/15 21:21 Order name: Lactate; Complete Time: 23:04 [facility] 11/15 21:26 Order name: COVID-19/FLU A+B/RSV (Document "Date of Onset" if Symptomatic) [facility] 11/15 21:26 Order name: Urine Microscopic Only [facility] 11/15 21:26 Order name: COVID-19/FLU A+B/RSV; Complete Time: 23:48 EDMS 11/15 21:26 Order name: Urine Microscopic Only; Complete Time: 23:48 EDMS 11/15 21:28 Order name: Arterial Blood Gas; Complete Time: 22:33 [facility] 11/15 21:20 Order name: XRAY Chest (1 view); Complete Time: 22:33 [facility] 11/15 21:20 Order name: EKG; Complete Time: 21:20 [facility] 11/15 21:20 Order name: Cardiac monitoring; Complete Time: 22:38 [facility] 11/15 21:20 Order name: EKG - Nurse/Tech; Complete Time: 22:38 [facility] 11/15 21:20 Order name: IV Saline Lock; Complete Time: 22:50 [facility] 11/15 21:20 Order name: Labs collected and sent; Complete Time: 22:50 [facility] 11/15 21:20 Order name: O2 Per Protocol; Complete Time: 22:50 [facility] 11/15 21:20 Order name: O2 Sat Monitoring; Complete Time: 22:50 [facility] 11/15 23:02 Order name: Urine Dipstick-Ancillary; Complete Time: 23:16 EDWA 11/15 23:05 Order name: Urine --Ancillary (enter results) 11/15 23:06 Order name: Urine --Ancillary; Complete Time: 23:48 EDWA 11/15 21:26 Order name: Urine Dipstick-Ancillary (obtain specimen); Complete Time: 23:04 [facility] 11/15 21:26 Order name: Urine Test (obtain specimen); Complete Time: 23:04 7 EC/15 22:45 Rate is 117 beats/min. Rhythm is regular, Sinus tachycardia with No ectopy. QRS [place] is [facility] Normal. IN interval is normal. QRS interval is normal. QT interval is normal. No Q waves. T waves are Inverted in leads II, III, aVF, V4, V5, V6. No ST changes noted. Clinical impression: Abnormal EKG without significant change and No change from prior ECG. Administered Medications: 23:21 Drug: morphine 4 mg Route: IVP; Site: left wrist; sm5 23:22 Drug: NS 0.9% 1000 ml Route: IV; Rate: 1000 ml; Site: left wrist; 5 23:22 Drug: Zofran (Ondansetron) 4 mg Route: IVP; Site: left wrist; 5 23:23 Drug: Albuterol 2.5 mg Route: Inhalation; 5 Disposition Summary: 11/16/21 00:12 Discharge Ordered Location: Home [facility] Problem: an ongoing problem [facility] Symptoms: have improved [facility] Condition: Stable [facility] Diagnosis - Other pneumonia, unspecified organism [facility] - Chest pain, unspecified [facility] Followup: [facility] - With: Private Physician - When: 1 - 2 days - Reason: Worsening of condition, Recheck today's complaints, Continuance of care, Re-evaluation by your physician Followup: [facility] - With: José Miguel Uribe MD - When: 1 - 2 days - Reason: Worsening of condition, Recheck today's complaints Discharge Instructions: - Discharge Summary Sheet [facility] - Nonspecific Chest Pain, Adult [facility] - Community-Acquired Pneumonia, Adult [facility] Forms: - Medication Reconciliation Form [facility] - Thank You Letter [facility] - Antibiotic Education [facility] - Prescription Opioid Use [facility] Prescriptions: - albuterol sulfate 90 mcg/actuation Inhalation HFA aerosol inhaler - inhale 2 puff by INHALATION route every 4-6 hours As needed; 1 Inhaler; [facility] Refills: 0, Product Selection Permitted - Tessalon Perles 100 mg Oral Capsule - take 1 capsule by ORAL route every 8 hours As needed; 15 capsule; Refills: 0, [facility] Product Selection Permitted Signatures: Dispatcher [employer] Bhaskar Méndez, HUMBERTO-C [employer]IC JOURNALIST-[facility]1 Yuniel Mccray MD MD [facility] Leann Sanchez, RN RN 5 Dave Cruz
--- NOTE | 2021-11-16 00:13 | ER ---
Nurse's Notes [facility] Name: Nancie Ordonez Age: 50 yrs Sex: Female : 1970 Arrival Date: 11/15/2021 Time: 20:36 Bed 18 Private MD: Diagnosis: Other pneumonia, unspecified organism;Chest pain, unspecified Presentation: 11/15 20:41 Chief complaint: Patient states: "My body is hurting, I was diagnosed with pneumonia ab2 one month ago and I think its getting worse.". Coronavirus screen: Vaccine status: Patient reports receiving the 2nd dose of the covid vaccine. Client denies travel out of the [place] in the last 14 days. At this time, the client does not indicate any symptoms associated with coronavirus-19. Ebola Screen: Patient negative for fever greater than or equal to 101.5 degrees Fahrenheit, and additional compatible Ebola Virus Disease symptoms Patient denies exposure to infectious person. Patient denies travel to an Ebola-affected area in the 21 days before illness onset. No symptoms or risks identified at this time. Initial Sepsis Screen: Does the patient meet any 2 criteria? No. Patient's initial sepsis screen is negative. Does the patient have a suspected source of infection? No. Patient's initial sepsis screen is negative. Risk Assessment: Do you want to hurt yourself or someone else? Patient reports no desire to harm self or others. Onset of symptoms is unknown. 20:41 Method Of Arrival: Wheelchair ab2 20:41 Acuity: DEEPALI 3 ab2 Triage Assessment: 20:43 General: Appears in no apparent distress. uncomfortable, Behavior is calm, cooperative, ab2 appropriate for age. Pain: Complains of pain in whole body Pain currently is 10 out of 10 on a pain scale. Cardiovascular: Reports shortness of breath, Denies chest pain. Respiratory: Reports pain with respiration. Musculoskeletal: Reports pain in entire body. 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 - Social history:: Smoking status: Patient denies any tobacco usage or history of. Screenin:45 Abuse screen: Denies threats or abuse. Nutritional screening: No deficits noted. sv1 Tuberculosis screening: No symptoms or risk factors identified. Fall Risk None identified. Assessment: 23:45 Pain: Pain does not radiate. Pain began gradually. sv1 11/16 00:32 Reassessment: The patient refused to CT . [facility]sv[facility] Vital Signs: 11/15 20:41 BP 125 / 71; Pulse 124; Resp 24; Temp 98.4(TE); Pulse Ox 96% ; Weight 86.18 kg; Height ab2 5 ft. 3 in. (160.02 cm); Pain 10/10; 21:16 BP 131 / 81 LA Supine (auto/reg); Pulse 118 MON; Resp 16 S; Temp 98.9(O); Pulse Ox 98% sv1 on R/A; 23:30 BP 132 / 72 RA Supine (auto/reg); Pulse 111 MON; Resp 17 S; Pulse Ox 100% on R/A; Pain sv1 3/10; 23:30 BP 136 / 73 RA Supine (auto/reg); Pulse 113 MON; Resp 17 S; Temp 98.8; Pulse Ox 97% on sv1 R/A; Pain 3/10; 20:41 Body Mass Index 33.66 (86.18 kg, 160.02 cm) ab2 ED Course: 20:36 Patient arrived in ED. kc5 20:43 Triage completed. ab2 20:44 Arm band placed on right wrist. ab2 20:50 Lane Villaseñor, NICCI is Primary Nurse. sv1 20:51 Yuniel Mccray MD is Attending Physician. mh7 22:05 XRAY Chest (1 view) In Process Unspecified. EDMS 22:49 COVID-19/FLU A+B/RSV Sent. sv1 22:50 Lactate Sent. sv1 22:50 Blood Culture Adult (2) Sent. sv1 22:50 Basic Metabolic Panel Sent. sv1 22:50 CBC with Diff Sent. sv1 22:50 LFT's Sent. sv1 22:51 Magnesium Sent. sv1 22:51 NT PRO-BNP Sent. sv1 22:51 PT-INR Sent. sv1 22:51 Troponin HS Sent. sv1 23:04 Urine Microscopic Only Sent. oe 23:22 Urine --Ancillary (enter results) Sent. 5 23:30 engine monitor on. sv1 23:30 No provider procedures requiring assistance completed. IV discontinued. sv1 23:44 COVID-19/FLU A+B/RSV (Document "Date of Onset" if Symptomatic) Sent. sv1 23:45 Patient has correct armband on for positive identification. Placed in gown. Bed in low sv1 position. Call light in reach. Side rails up X2. Adult w/ patient. 23:45 Patient maintains SpO2 saturation greater than 95% on room air. sv1 23:45 Inserted saline lock: 22 gauge wrist, using aseptic technique. sv1 11/16 00:12 José Miguel Uribe MD is Referral Physician. [facility] Administered Medications: 11/15 23:21 Drug: morphine 4 mg Route: IVP; Site: left wrist; 5 23:22 Drug: NS 0.9% 1000 ml Route: IV; Rate: 1000 ml; Site: left wrist; sm5 23:22 Drug: Zofran (Ondansetron) 4 mg Route: IVP; Site: left wrist; 5 23:23 Drug: Albuterol 2.5 mg Route: Inhalation; 5 Outcome: 23:30 Discharged to home ambulatory, with family. sv1 23:30 Condition: improved 23:30 Discharge instructions given to patient, family. 11/16 00:12 Discharge ordered by . [facility] 00:34 Patient left the ED. sv1 Signatures: Dispatcher [employer] EDMS Addy Escalante Maurice, MD MD 7 Abby Dukes kc5 Leann Sanchez RN RN 5 Lane Villaseñor RN RN 1 Dave Cruz
--- NOTE | 2021-11-16 07:23 | EKG ---
Test Date: 2021-11-15 Test Time: 22:33:57 Commonwealth Attorney: BACILIO MEASUREMENT RESULTS: Intervals: Rate: 117 NE: 124 QRSD: 70 QT: 310 QTc: 432 [place]: P: 67 NE: 124 QRS: 72 T: 264 INTERPRETIVE STATEMENTS: Sinus tachycardia Biatrial enlargement T wave abnormality, consider inferolateral ischemia Abnormal ECG Compared to ECG 07/12/2021 21:10:09 No significant changes Electronically Signed On 11-16-21 07:21:56 CDT by Drake Blakely
== END 2021-11-16 00:34 | disposition home or self-care (01) ==
LOC: ER 20:35
DX: R07.9 Chest pain, unspecified (principal); R05.9 Cough, unspecified; J18.8 Other pneumonia, unspecified organism; I10 Essential (primary) hypertension; Z88.6 Allergy status to analgesic agent
CPT/HCPCS: 93005; 87040 ×2; 85025; 80048; 36415; 83735; 81025; 85610; 80076; 83605; 84484; 83880; 0241U; 71045; 82805; 96375; 96374; 99285; J7030; J2405; 81003; 81015

== ENCOUNTER 2021-11-20 21:31 | Emergency (ER) | payer OTHER ==
--- OUTSIDE RECORDS SUMMARY | 2021-11-20 21:48 | XMS REPORT | Continuity of Care Document ---
:1970 Author Organization [facility] t Address [address] [place] [address] Care Team Providers Name Role Phone [facility] Primary Care Physician Unavailable [email or web address] Attending Clinician [...] Type Policy Number Effective Date Expiration Date Bjorn ESTESR FROM [id number] 2021 [facility] 00:00:00 Problems Condition Condition Condition Status [...] [place] failure y failure 00 [facility] dayna Branch Depo-Prove Depo-Prove Disease Active U [...] Date Stop Date Quantity Comments Source History SDIA University o f Alcohol Std Drinks [place] [facility] History [facility] University o f Alcohol Binge [place] [facility] al Branch Exposure to Not sure University of SARS-CoV-2 (event) [place] [facility] History [facility] University o f Alcohol Frequency [facility] edical Branch Alcohol intake 2021-10-24 2021-10-24 Current drinker Unive rsity of 00:00:00 00:00:00 of alcohol [facility] (finding) Branch Education 2021-10-15 2021-10-15 12 University of 00:00:00 00:00:00 [facility] Tobacco Comment 2021-10-15 2021-10-15 30 years ago Univers ity of 00:00:00 00:00:00 [facility] Alcohol Comment 2016-12-14 2016-12-14 infrequent - Univers ity of 00:00:00 00:00:00 family parties, [place] Med ical wine, 12 oz/time Branch Cigarettes smoked 2016-12-14 2016-12-14 Univers ity of current (pack per 00:00:00 00:00:00 [facility] ) - Reported Branch Cigarette 2016-12-14 2016-12-14 University of pack-years 00:00:00 00:00:00 [facility] Tobacco use and 2016-12-14 2016-12-14 Never used Universit y of exposure 00:00:00 00:00:00 [facility] History of tobacco 2001-12-14 Cigarette Smoker University of use 00:00:00 [facility] Sex Ass[birth year] At [birth year] Universit y of 00:00:00 00:00:00 [facility] Smoking Status Start Date Stop Date Source Former smoker 2016-12-14 00:00:00 2016-12-14 00:00:00 Universi ty of [facility] Medications Ordered Filled Start Stop Current Ordering [...] (LATUDA 3-11 mouth. ity of ORAL) 17:32: [address] lurasidone Yes Take by Uni vers HCl (LATUDA 3-11 mouth. ity of ORAL) 17:32: [address] KCL 202- No 20meq 20 mEq, Univers (KLOR-CON 3-11 03-11 Oral, ity of M20) tablet 02:00: 02:20 [place]CE[place] 1 [place] 20 mEq 00 :00 dose, On Medical [facility] Branch 11/10/21 at 2000, Routine predniSONE Yes [id number] 20mg Take 1 Univers 20 mg 3-11 tablet by ity of tablet 00:00: mouth [place] 00 daily. [facility] Branch piperacilli 2021- No 3.375g 3.375 g, Univers n-tazobacta -10 -11 IV ity of m (ZOSYN) 22:00: 21:01 [place]back, [place] 3.375 g in 00 :00 Q8H ABX, Medic al NaCl 0.9% First dose Bran ch (NS) 100 mL on [facility] VIAL-MATE 11/10/21 at 1600, Until Discontinu ed, Administer over 4 Hours, 100 mL
Reas on for Anti-Infec tive: Empiric Therapy for Suspected Infection< br>Empi leandro Therapy Site: Respirator y
Durat ion of therapy: 72 hours enoxaparin Yes 40mg 40 mg, Unive rs (LOVENOX) 3-10 Subcutaneo ity of injection 15:00: [place], [place]ILY, [place] 40 mg 00 First dose Medical on [facility] Branch 11/10/21 at 0900, Until Discontinu ed, Routine hydroCHLORO Yes 12.5mg 12.5 mg, Univers thiazide 3-10 Oral, ity of (ESIDRIX) 15:00: DAILY, [place] capsule 00 First dose Medica l 12.5 mg on [facility] 11/10/21 at 0900, Until Discontinu ed, Routine amLODIPine Yes 10mg 10 mg, Unive rs (NORVASC) 3-10 Oral, ity of tablet 10 15:00: DAILY, [place] mg 00 First dose Medical on [facility] 11/10/21 at 0900, Until Discontinu ed, Routine predniSONE 2021- No 40mg 40 mg, Univ ers (DELTASONE) 3-10 03-11 Oral, ity of tablet 40 15:00: 17:05 DAILY, [place] mg 00 :49 First dose Medical on [facility] 11/10/21 at 0900, Until Discontinu ed, Routine docusate Yes 100mg 100 mg, Unive rs (COLACE) 3-10 Oral, BID, ity o f capsule 100 14:00: First dose [place] mg 00 on [facility] 11/10/21 at Branch 0800, Until Discontinu ed, Routine busPIRone Yes 5mg 5 mg, Univers (BUSPAR) 3-10 Oral, BID, ity o f tablet 5 mg 14:00: First dose [place] 00 on [facility] 11/10/21 at Branch 0800, Until Discontinu ed, Routine lurasidone Yes 20mg 20 mg, Unive rs (LATUDA) 3-10 Oral, ity of tablet 20 13:30: QAM-0730, [place] as mg 00 First dose Medical on [facility] 11/10/21 at 0730, Until Discontinu ed morpHINE Yes 2mg 2 mg, Slow Uni vers injection 2 3-10 IV Push, ity of mg 07:05: Q4HPRN, [place] 58 Starting Medical on [facility] 11/10/21 at 0105, Until Discontinu ed, Routine, Pain (scale 7-10) ondansetron 0 Yes 4mg 4 mg, Slow Univers (ZOFRAN 3-10 IV Push, ity of (PF)) 05:19: Q6HPRN, [place] injection 4 35 Starting Medi dayna mg on [facility] Branch 11/09/21 at 2319, Until Discontinu ed, Routine, Nausea and Vomiting (N/V) HYDROcodone 2021-0 2021- Yes 1{tbl} 1 tablet, Univers -acetaminop 3-06 05-12 Oral, ity of hen (NORCO 05:19: 05:18 Q6HPRN, [place] as 5) 5-325 mg 30 :30 Starting Medi dayna tablet 1 on [facility] Branch tablet 11/09/21 at 2319, Until 11/11/21 at 2318, Routine, Pain (scale 4-6) acetaminoph 2021-0 Yes 650mg 650 mg, Un guillermina en 3-10 Oral, ity of (TYLENOL) 05:19: Q6HPRN, [place] tablet 650 28 Starting Medic al mg on [facility] Branch 11/09/21 at 2319, Until Discontinu ed, Routine, Pain (scale 1-3) albuterol 2021-0 Yes 2{puff} 2 Puff, Un guillermina (VENTOLIN) 3-10 Inhalation ity of inhaler 2 05:17: , Q6HPRN, [place] as Puff 52 Starting Medical on [facility] Branch 11/09/21 at 2317, Until Discontinu ed, Routine, Wheezing, Shortness of Breath iopamidol 2021-0 2022- No [id number] 100mL 100 mL, Univers (ISOVUE 11-10- 44570 Intravenou ity of 370-500 mL) 04:43: 04:44 s, ONCE, 1 [place] injection 00 :00 dose, On Medica l 100 mL Sun11/09/21 Branch at 2300, Routine morpHINE 0 2021- No 4mg 4 mg, Slow Un guillermina injection 4 11-10 IV Push, ity of mg 03:45: 02:57 ONCE, 1 [place] 00 :00 dose, On Medical 11/09/21 Branch at 2145, SE piperacilli 2021-0 202- No 3.375g 3.375 g, Univers n-tazobacta 11-10-10 IV ity of m (ZOSYN) 03:45: 05:33 [...] of 2.5 mg /3 02:00: , QID, [place] mL (0.083 00 First dose Medi dayna %) on [facility] Branch nebulizer 11/09/21 at solution 2000, 2.5 mg Until Discontinu ed, Routine ipratropium Yes .5mg 0.5 mg, Uni vers (ATROVENT) 3-10 Inhalation ity of 0.02 % 02:00: , QID, [place] nebulizer 00 First dose Medi dayna solution on Sun Branch 0.5 mg 11/09/21 at 2000, Until Discontinu ed, Routine hydroCHLORO Yes [id number] 12.5mg Take 1 Univers thiazide 2-22 capsule by ity o f 12.5 mg 00:00: mouth [place] capsule 00 daily. Medical Branch hydroCHLORO 0 Yes [id number] 12.5mg Take 1 Univers thiazide 2-22 capsule by ity o f 12.5 mg 00:00: mouth [place] capsule 00 daily. Medical Branch hydroCHLORO Yes [id number] 12.5mg Take 1 Univers thiazide 2-22 capsule by ity o f 12.5 mg 00:00: mouth [place] capsule 00 daily. Medical Branch hydroCHLORO 0 Yes [id number] 12.5mg Take 1 Univers thiazide 2-22 capsule by ity o f 12.5 mg 00:00: mouth [place] capsule 00 daily. Medical Branch hydroCHLORO 0 Yes [id number] 12.5mg Take 1 Univers thiazide 2-22 capsule by ity o f 12.5 mg 00:00: mouth [place] capsule 00 daily. [facility] Branch hydroCHLORO 0 Yes [id number] 12.5mg Take 1 Univers thiazide 2-22 capsule by ity o f 12.5 mg 00:00: mouth [place] capsule 00 daily. [facility] hydroCHLORO 0 2021- No [id number] 12.5mg Take 1 Univers thiazide 2-22 02-21 capsule by ity of 12.5 mg 00:00: 00:00 mouth [place] capsule 00 :00 daily for Medical 30 days. Branch hydroCHLORO 2021- No [id number] 12.5mg Take 1 Univers thiazide 2-22 02-21 capsule by ity of 12.5 mg 00:00: 00:00 mouth [place] capsule 00 :00 daily for Medical [address]. [place] lurasidone Yes Take by Uni vers HCl (LATUDA 2-21 mouth. ity of ORAL) 17:53: [address] lurasidone Yes Take by Uni vers HCl (LATUDA 2-21 mouth. ity of ORAL) 17:53: [address] lurasidone 0 Yes Take by Uni vers HCl (LATUDA 2-21 mouth. ity of ORAL) 17:53: [address] lurasidone 0 Yes Take by Uni vers HCl (LATUDA 2-21 mouth. ity of ORAL) 10:59: [address] zolpidem 2021-0 2021- No 5mg 5 mg, Univers (AMBIEN) -24 10-21 Oral, ity of tablet 5 mg 04:00: 03:07 ONCE, 1 [place] 00 :00 dose, On Medical [place] Branch 10/23/21 at 2200, Routine docusate 0 Yes [id number] 100mg Take 1 U nivers 100 mg 2-21 capsule by ity of capsule 00:00: mouth 2 (two) Medical times Branch daily. busPIRone 5 2021-0 Yes [id number] 5mg Take 1 Univers mg tablet 2-21 tablet by ity o f 00:00: mouth 2 (two) Medical times Branch daily. chlorhexidi 2021-0 Yes [id number] 15mL Swish and Univers ne 0.12 % 2-21 spit out ity of mouthwash 00:00: 15 mL 2 (two) Medical times Branch daily. albuterol 2021-0 Yes [id number] 2{puff} Inhale 2 Univers 90 2-21 Puffs ity of mcg/actuati 00:00: every 6 [place] on inhaler 00 (six) Medical hours as Branch needed for Wheezing or Shortness of Breath. predniSONE 2021-0 Yes [id number] 40mg Take 2 Univers 20 mg 2-21 tablets by ity of tablet 00:00: mouth daily. Medical Branch docusate 2021-0 Yes [id number] 100mg Take 1 U nivers 100 mg 2-21 capsule by ity of capsule 00:00: mouth (two) Medical times Branch daily. busPIRone 5 2021-0 Yes [id number] 5mg Take 1 Univers mg tablet 2-21 tablet by ity o f 00:00: mouth 2 (two) Medical times Branch daily. chlorhexidi 2021-0 Yes [id number] 15mL Swish and Univers ne 0.12 % 2-21 spit out ity of mouthwash 00:00: 15 mL 2 (two) Medical times Branch daily. albuterol 2021-0 Yes [id number] 2{puff} Inhale 2 Univers 90 2-21 Puffs ity of mcg/actuati 00:00: every 6 [place] as on inhaler 00 (six) Medical hours as Branch needed for Wheezing or Shortness of Breath. predniSONE 2021-0 Yes [id number] 40mg Take 2 Univers 20 mg 2-21 tablets by ity of tablet 00:00: mouth daily. Medical Branch docusate 2021-0 Yes [id number] 100mg Take 1 U nivers 100 mg 2-21 capsule by ity of capsule 00:00: mouth (two) Medical times Branch daily. busPIRone 5 2-0 Yes [id number] 5mg Take 1 Univers mg tablet 2-21 tablet by ity o f 00:00: mouth 2 (two) Medical times Branch daily. chlorhexidi 2-0 Yes [id number] 15mL Swish and Univers ne 0.12 % 2-21 spit out ity of mouthwash 00:00: 15 mL 2 (two) Medical times Branch daily. albuterol 2021-0 Yes [id number] 2{puff} Inhale 2 Univers 90 2-21 Puffs ity of mcg/actuati 00:00: every 6 [place] as on inhaler 00 (six) Medical hours as Branch needed for Wheezing or Shortness of Breath. predniSONE 2021-0 Yes [id number] 40mg Take 2 Univers 20 mg 2-21 tablets by ity of tablet 00:00: mouth [place] daily. Medical Branch docusate 2021-0 Yes [id number] 100mg Take 1 U nivers 100 mg 2-21 capsule by ity of capsule 00:00: mouth (two) Medical times Branch daily. busPIRone 5 2021-0 Yes [id number] 5mg Take 1 Univers mg tablet 2-21 tablet by ity o f 00:00: mouth [place] (two) Medical times Branch daily. chlorhexidi 2021-0 Yes [id number] 15mL Swish and Univers ne 0.12 % 2-21 spit out ity of mouthwash 00:00: 15 mL 2 [place] (two) Medical times Branch daily. albuterol 2021-0 Yes [id number] 2{puff} Inhale 2 Univers 90 2-21 Puffs ity of mcg/actuati 00:00: every 6 [place] as on inhaler 00 (six) Medical hours as Branch needed for Wheezing or Shortness of Breath. docusate 2022-0 Yes [id number] 100mg Take 1 U nivers 100 mg 2-21 capsule by ity of capsule 00:00: mouth 2 (two) Medical times Branch daily. albuterol 2-0 Yes [id number] 2{puff} Inhale 2 Univers 90 2-21 Puffs ity of mcg/actuati 00:00: every 6 [place] as on inhaler 00 (six) Medical hours as Branch needed for Wheezing or Shortness of Breath. busPIRone 5 2021-0 Yes [id number] 5mg Take 1 Univers mg tablet 2-21 tablet by ity o f 00:00: mouth 2 (two) Medical times Branch daily. chlorhexidi 2021-0 Yes [id number] 15mL Swish and Univers ne 0.12 % 2-21 spit out ity of mouthwash 00:00: 15 mL 2 (two) Medical times Branch daily. docusate 2021-0 Yes [id number] 100mg Take 1 U nivers 100 mg 2-21 capsule by ity of capsule 00:00: mouth (two) Medical times Branch daily. busPIRone 5 2021-0 Yes [id number] 5mg Take 1 Univers mg tablet 2-21 tablet by ity o f 00:00: mouth (two) Medical times Branch daily. chlorhexidi 0 Yes [id number] 15mL Swish and Univers ne 0.12 % 2-21 spit out ity of mouthwash 00:00: 15 mL 2 (two) Medical times Branch daily. albuterol Yes [id number] 2{puff} Inhale 2 Univers 90 2-21 Puffs ity of mcg/actuati 00:00: every 6 [place] as on inhaler 00 (six) Medical hours as Branch needed for Wheezing or Shortness of Breath. predniSONE 2021- Yes [id number] 40mg Take 2 Univers 20 mg 2-21 03-24 tablets by ity of tablet 00:00: 04:59 mouth [place] 00 :00 daily for Medical 30 days. Branch predniSONE 2021-2021- No [id number] 40mg Take 2 Univers 20 mg 2-21 03-11 tablets by ity of tablet 00:00: 00:00 mouth [place] 00 :00 daily. Medical Branch acetaminoph 2021- Yes [id number] 1{tbl} Take 1 U nivers en-codeine 2-21 02-27 tablet by ity of 300-30 mg 00:00: [...] s: acute pain busPIRone 5 2021- No [id number] 5mg Take 1 Univers mg tablet 10-24 tablet by ity of 00:00: 00:00 mouth 2 [place] 00 :00 (two) Medical times Branch daily for 30 days. chlorhexidi 2021- No [id number] 15mL Swish and Univers ne 0.12 % 10-24 spit out ity o f mouthwash 00:00: 00:00 15 mL 2 [place] 00 :00 (two) Medical times Branch daily for 7 days. albuterol 2021- No [id number] 2{puff} Inhale 2 Univers 90 10-24- Puffs ity of mcg/actuati 00:00: 00:00 every 6 [place] on inhaler 00 :00 (six) Medical hours as Branch needed for Wheezing or Shortness of Breath. predniSONE 2021-2021- No [id number] 40mg Take 2 Univers 20 mg 10-24- tablets by ity of tablet 00:00: 00:00 mouth [place] 00 :00 daily for Medical 30 days. Branch busPIRone 5 2- No [id number] 5mg Take 1 Univers mg tablet 10-24- tablet by ity of 00:00: 00:00 mouth 2 [place] 00 :00 (two) Medical times Branch daily for 30 days. chlorhexidi 2021- No [id number] 15mL Swish and Univers ne 0.12 % 10-24 spit out ity o f mouthwash 00:00: 00:00 15 mL 2 [place] 00 :00 (two) Medical times Branch daily for 7 days. phenoL 0 Yes 1{spray 1 [place], Univ ers (SORE 2-20 } Oral, PRN, ity of THROAT 19:03: Starting [place] (PHENOL)) 59 on [facility] 1.4 % spray 10/23/21 at Br anch bottle 1 1303, [place] Until Discontinu ed, Routine, Sore throat phenoL 2021-0 Yes 1{spray 1 [place], Univ ers (SORE 2-20 } Oral, PRN, ity of THROAT 19:03: Starting [place] (PHENOL)) 59 on [facility] 1.4 % spray 10/23/21 at Br anch bottle 1 1303, [place] Until Discontinu ed, Routine, Sore throat zolpidem 2021- No 5mg 5 mg, Univers (AMBIEN) 10-23-20 Oral, ity of tablet 5 mg 04:00: 03:54 ONCE, 1 [place] 00 :00 dose, On Medical Sat Branch 10/22/21 at 2200, Routine methylpredn 2021-0 Yes 125mg 125 mg, Un guillermina isolone sod 2-19 Intravenou it y of succ 20:00: s, Q8H, [place] (SOLU-MEDRO 00 First dose Me dical L) (after Branch injection last 125 mg modificati on) on 10/22/21 at 1400, Until Discontinu ed, Routine methylpredn 2-0 Yes 125mg 125 mg, Un guillermina isolone sod 2-19 Intravenou it y of succ 20:00: s, Q8H, [place] (SOLU-MEDRO 00 First dose Me dical L) (after Branch injection last 125 mg modificati on) on 10/22/21 at 1400, Until Discontinu ed, Routine hydroCHLORO 2021-0 Yes 12.5mg 12.5 mg, Univers thiazide 2-19 Oral, ity of (ESIDRIX) 15:30: DAILY, [place] capsule 00 First dose Medica l 12.5 mg on Sat Branch 10/22/21 at 0930, Until Discontinu ed, Routine amLODIPine 2022-0 Yes 10mg 10 mg, Unive rs (NORVASC) 2-19 Oral, ity of tablet 10 15:30: DAILY, [place] mg 00 First dose Medical on [facility] 10/22/21 at 0930, Until Discontinu ed, Routine hydroCHLORO 2022-0 Yes 12.5mg 12.5 mg, Univers thiazide 10-22 Oral, ity of (ESIDRIX) 15:30: DAILY, [place] capsule 00 First dose Medica l 12.5 mg on [facility] 10/22/21 at 0930, Until Discontinu ed, Routine amLODIPine 2022-0 Yes 10mg 10 mg, Unive rs (NORVASC) 2-19 Oral, ity of tablet 10 15:30: DAILY, [place] mg 00 First dose Medical on [facility] 10/22/21 at 0930, Until Discontinu ed, Routine acetaminoph 2022-0 Yes 650mg 650 mg, Un guillermina en - Oral, ity of (TYLENOL) 09:54: Q6HPRN, [place] tablet 650 49 Starting Medic al mg on [facility] 10/22/21 at 0354, Until Discontinu ed, Routine, Pain (scale 1-3) acetaminoph 2022-0 Yes 650mg 650 mg, Un guillermina en - Oral, ity of (TYLENOL) 09:54: Q6HPRN, [place] tablet 650 49 Starting Medic al mg on [facility] 10/22/21 at 0354, Until Discontinu ed, Routine, Pain (scale 1-3) chlorhexidi 2022-0 Yes 15mL 15 mL, Univ ers ne 2-19 Oral ity of (PERIDEX) 02:00: ([place] 0.12 % 00 Spit Out), Medical mouthwash BID, First Bran ch 15 mL dose on Sun10/21/21 at 2000, Until Discontinu ed, Routine chlorhexidi 2-0 Yes 15mL 15 mL, Univ ers ne 2-19 Oral ity of (PERIDEX) 02:00: (Swish And [...] 2021- No 5ug/kg/ 5-50 Un guillermina infusion 10-21- min mcg/kg/min ity of 20:41: 15:22 ?99.8 [...] maximum allowed dose, contact prescriber .
lidocaine 2021-0 Yes PRN, Univers 4% 10-21 Starting ity of (XYLOCAINE) 19:00: on [place] 4 % (40 10/21/21 at Medica l mg/mL) 1300, Branch topical Until solution Discontinu ed, Routine, Intra-op lidocaine 2021-0 Yes PRN, Univers 4% 10-21 Starting ity [...] at 1300, Until Discontinu ed, Routine metoprolol 2021- No 5mg 5 mg, Slow Univers (LOPRESSOR) 10-21 IV Push, ity of injection 5 19:00: 19:00 ONCE, 1 [place] mg 00 :00 dose, On Medical [facility] 10/21/21 at 1300, Routine EPINEPHrine 2021-0 Yes PRN, Univer s 1:1,000 (1 10-21 Starting ity o f mg/mL) 18:01: on Sun [place] (ADRENALIN) 10/21/21 at [place] dical injection 1201, Branch Until Discontinu ed, Routine, Intra-op EPINEPHrine 2021-0 Yes PRN, Univer s 1:1,000 (1 2-18 Starting ity o f mg/mL) 18:01: on Sun [place] (ADRENALIN) 10/21/21 at [place] dical injection 1201, Branch Until Discontinu ed, Routine, Intra-op ondansetron 2022-0 Yes 4mg 4 mg, Slow Univers (ZOFRAN [...] NaCl 0.9% 2021-0 Yes PRN, Univers (NS) 18 Starting ity of injection 17:01: on Sun [place] 10/21/21 at [facility] 1101, Branch Until Discontinu ed, Routine, Intra-op NaCl 0.9% 2021-0 Yes PRN, Univers (NS) 18 Starting ity of injection 17:01: on Sun [place] 10/21/21 at [facility] 1101, Branch Until Discontinu ed, Routine, Intra-op morpHINE 2021-0 Yes 4mg 4 mg, Slow Uni vers injection 4 2-17 IV Push, ity of mg 23:22: [place] [id number] Starting Medical on [facility] Branch 10/20/21 at 1722, Until Discontinu ed, Routine, Pain (scale 7-10) morpHINE 2021-0 Yes 4mg 4 mg, Slow Uni vers injection 4 2-17 IV Push, ity of mg 23:22: [place] [id number] Starting Medical on [place] Branch 10/20/21 at 1722, Until Discontinu ed, Routine, Pain (scale 7-10) methylpredn 2021- No 125mg 125 mg, U nivers isolone sod 10-20 Intravenou i ty of succ 20:00: 17:53 s, Q8H, [place] (SOLU-MEDRO 00 :24 First dose Me dical L) (after Branch injection last 125 mg modificati on) on [facility] 10/20/21 at 1400, Until Discontinu ed, Routine furosemide 0 2021- No 40mg 40 mg, Univ ers (LASIX) 10-20 Slow IV ity of injection 18:00: 18:19 Push, [place] 40 mg 00 :00 ONCE, 1 Medical dose, On Branch [facility] 10/20/21 at 1200, Routine pantoprazol 0 Yes 40mg 40 mg, Univ ers e 2-17 Oral, ity of (PROTONIX) 16:45: DAILY, [place] EC tablet 00 First dose Medi dayna 40 mg on [facility] Branch 10/20/21 at 1045, Until Discontinu ed, Routine pantoprazol 0 Yes 40mg 40 mg, Univ ers e -17 Oral, ity of (PROTONIX) 16:45: DAILY, [place] EC tablet 00 First dose Medi dayna 40 mg on [facility] Branch 10/20/21 at 1045, Until Discontinu ed, Routine alum-mag 0 Yes 30mL 30 mL, Univers hydroxide-s -17 Oral, ity of imeth 16:37: Q6[place], [place] (MAALOX 49 Starting Medical PLUS / on [facility] Branch MAG-AL 10/20/21 at [facility]) 1037, 200-200-20 Until mg/5 mL Discontinu suspension ed, 30 mL Routine, Indigestio n alum-mag 0 Yes 30mL 30 mL, Univers hydroxide-s -17 Oral, ity of imeth 16:37: Q6[place], [place] (MAALOX 49 Starting Medical PLUS / on [facility] Branch MAG-AL 10/20/21 at [facility]) 1037, 200-200-20 Until mg/5 mL Discontinu suspension ed, 30 mL Routine, Indigestio n acetaminoph No 650mg 650 mg, U nivers en 10-20 Oral, ity of (TYLENOL) 16:16: 17:01 Q6HPRN, [place] tablet 650 26 :51 Starting Medic al mg on [facility] Branch 10/20/21 at 1016, Until Sun10/21/21 at 1101, Routine, Pain (scale 1-3) polyethylen 2021-0 Yes 17g 17 g, Unive rs e glycol 2-17 Oral, ity of 3350 powder 15:00: DAILY, [place] 17 g 00 First dose Medical on [facility] Branch 10/20/21 at 0900, Until Discontinu ed, Routine polyethylen 2021-0 Yes 17g 17 g, Unive rs e glycol 2-17 Oral, ity of 3350 powder 15:00: DAILY, [place] Miguela s 17 g 00 First dose Medical on [place] [facility] 10/20/21 at 0900, Until Discontinu ed, Routine docusate 0 Yes 100mg 100 mg, Unive rs (COLACE) 2-17 Oral, BID, ity o f capsule 100 02:00: First dose [place] mg 00 on Sun Medical 10/19/21 at Branch 1999, Until Discontinu ed, Routine docusate 0 Yes [...] >180
In dication: Hypertensi ve Emergency hydralAZINE 0 Yes 10mg 10 mg, Univ ers (APRESOLINE 2-16 Slow IV ity o f ) injection 11:35: Push, [place] 10 mg 36 Q4HPRN, Medical Starting Branch on Sun10/19/21 at 0535, Until Discontinu ed, Routine, systolic BP >180
In dication: Hypertensi ve Emergency haloperidol 2021-0 2021- No 5mg 5 mg, Slow Univers lactate 16 -16 IV Push, ity of (HALDOL) 08:42: 08:44 ONCE, 1 [place] injection 5 00 :00 dose, On Medi dayna mg [facility] 10/19/21 at 0245, Routine pantoprazol 0 2021- No 40mg 40 mg, Uni vers e 10-18 Slow IV ity of (PROTONIX) 01:45: 16:42 Push, [place] injection 00 :17 Q24H, Medical 40 mg First dose Branch on Sun10/17/21 at 1945, Until Discontinu ed methylpredn No 125mg 125 mg, U nivers isolone sod 10-17 Intravenou i ty of succ 18:30: 18:10 s, Q6H, [place] (SOLU-MEDRO 00 :46 First dose Me dical L) on [facility] injection 10/17/21 at 125 mg 1230, Until Discontinu ed, Routine ziprasidone No 10mg 10 mg, Uni vers (GEODON) 10-17 Intramuscu ity of injection 18:30: 17:35 lar, ONCE, [place] 10 mg 00 :00 1 dose, On Medical Sun [place] 10/17/21 at 1230, Routine methylPREDN No 125mg 125 mg, U nivers ISolone 10-17 Slow IV ity of sodium 18:00: 18:28 Push, Q6H, [facility] s succinate 00 :52 First dose Medi dayna (SOLU-MEDRO on [facility] L) 10/17/21 at injection 1200, 125 mg Until Discontinu ed, Routine thiamine 2021- No 100mg IV Univers (VITAMIN 10-17 Piggyback, ity of B1) 100 mg 17:45: 14:08 DAILY, 3 [place] in NaCl 00 :00 doses, Medical 0.9% (NS) First dose Bran ch piggyback on Sun10/17/21 at 1145, Last dose on Sun10/19/21 at 0900, 50 mL LORazepam No 1mg 1 mg, Slow U nivers (ATIVAN) 10-17 IV Push, ity of injection 1 17:00: 17:33 Q4HPRN, [place] mg 00 :38 Starting Medical on Sun10/17/21 at 1100, Until Sun10/19/21 at 1133, Routine, Anxiety, Agitation ipratropium Yes 3mL 3 mL, Unive rs -albuteroL 10-17 Inhalation ity of (DUONEB) 14:00: , Q4H, [place] 0.5 mg-3 00 First dose Medic al mg(2.5 mg on Sun [place] base)/3 mL 10/17/21 at nebulizer 0800, solution 3 Until mL Discontinu ed, Routine ipratropium 2021-0 Yes 3mL 3 mL, Unive rs -albuteroL 10-17 Inhalation ity of (DUONEB) 14:00: , Q4H, [place] 0.5 mg-3 00 First dose Medic al mg(2.5 mg on [facility] base)/3 mL 10/17/21 at nebulizer 0800, solution 3 Until mL Discontinu ed, Routine lidocaine 2021-0 2021- No 5mL 5 mL, Univer s 1% (PF) 10-17-14 Subcutaneo ity o f (XYLOCAINE) 13:45: 13:45 us, ONCE, [place] injection 5 00 :00 1 dose, On Me dical mL [facility] 10/17/21 at 0745, Routine NaCl 0.9% 2021-0 Yes 10mL 10 mL, Univer s (NS) 2-14 Slow IV ity of injection 13:27: Push, PRN, [place] 10 mL 33 Starting Medical on [facility] 10/17/21 at 0727, Until Discontinu ed, Routine, line maintenanc e NaCl 0.9% 2021-0 Yes 10mL 10 mL, Univer s (NS) 2-14 Slow IV ity of injection 13:27: [place] 10 [place] 33 [place] Medical on [facility] 10/17/21 at 0727, Until Discontinu ed, Routine, line maintenanc e haloperidol 2021-0 2022- No 5mg 5 mg, Slow Univers lactate 10-17-14 IV Push, ity of (HALDOL) 04:00: 03:03 ONCE, 1 [place] injection 5 00 :00 dose, On Medi dayna mg [facility] 10/16/21 at 2200, Routine busPIRone 2-0 Yes 5mg 5 mg, Univers (BUSPAR) 2-14 Oral, BID, ity o f tablet 5 mg 02:00: First dose on [facility] 10/16/21 at Branch 2000, Until Discontinu ed, Routine busPIRone 2022-0 Yes 5mg 5 mg, Univers (BUSPAR) 2-14 Oral, BID, ity o f tablet 5 mg 02:00: First dose on [facility] 10/16/21 at Branch 2000, Until Discontinu ed, Routine methylpredn No 60mg 60 mg, Uni vers isolone sod 10-16 Slow IV ity of succ 23:00: 17:25 Push, Q8H, [place] (SOLU-MEDRO 00 :30 First dose Me dical L) on [place] Branch injection 10/16/21 at 60 mg 1700, Until Discontinu ed, Routine HYDROcodone No 1{tbl} 1 tablet, Univers -acetaminop 10-16 Oral, ity of hen (NORCO 19:49: 17:01 Q6HPRN, José Miguel as 5) 5-325 mg 46 :51 Starting Medi dayna tablet 1 on [place] Branch tablet 10/16/21 at 1349, Until Sun10/21/21 at 1101, Routine, Pain (scale 4-6) cefTRIAXone No 1000mg 1,000 mg, Univers (ROCEPHIN) 10-16 IV ity of 1,000 mg in 18:30: 18:56 [facility] [place] NaCl 0.9% 00 :00 Q24H ABX, Medic al (NS) 50 mL 5 doses, Branc h MINI-BAG First dose on Sun10/16/21 at 1230, Last dose on Sun10/20/21 at 1230, Administer over 30 Minutes, 50 mL
Reas on for Anti-Infec tive: Documented Infection< br>Documen britney Infection Site: Respirator y
Durat ion of Therapy: Other (see Comments) azithromyci No 500mg 500 mg, IV Univers n 10-16 Piggyback, ity of (ZITHROMAX) 18:30: 19:16 Q24H ABX, [place] 500 mg in 00 :00 3 doses, Medica l NaCl 0.9% First dose Bran ch (NS) 250 mL on Sun VIAL-MATE 10/16/21 at IV 1230, Last piggyback dose on Sun10/18/21 at 1230, Administer over 60 Minutes, 250 mL
Reas on for Anti-Infec tive: Documented Infection& lt;br>Docu mented Infection Site: Respirator y
Durat ion of Therapy: Other (see Comments) dexMEDEtomi 2021- No .2ug/kg 0.2-1.5 Univers dine 400 10-1617 /h mcg/kg/hr ity o f mcg in [...] 16:47 Push, [place] 0.5 mg 49 :31 [id number], Medical Starting Branch on 10/15/21 at 1543, Until 10/17/21 at 1047, Routine, Anxiety iopamidol 2021- No [id number] 100mL 100 mL, Univers (ISOVUE 10-15 Intravenou [...] at 1115, Until Discontinu ed, Routine levoFLOXaci 2021- No 750mg 750 mg, IV Univers n [...]
Durat ion of therapy: 72 hours furosemide 2021- No 20mg 20 mg, IV U nivers [...] [place] (HUMULIN R) 00 :00 dose, On [facility] injection Sat Branch 10 Units 10/15/21 at [...] [place] 5,000 Units 00 :17 us, Q8H, [facility] dayna First dose Branch on 10/15/21 at 0600, Until Discontinu ed, Routine vancomycin 2021- No 15mg/kg 1,500 mg Univers 1500 mg in 10-15 (15 mg/kg ity of NS 500 mL 10:00: 16:12 ?100 kg), [place] IV 00 :17 IV Medical Piggyback Piggyback, [facility] RTU 1,500 Q12H ABX, mg First dose on 10/15/21 at 0400, Until Discontinu ed, Administer over 90 Minutes
Reason for Anti-Infec tive: Documented Infection< br>Documen britney Infection Site: Blood
D uration of Therapy: 7 days ceFEPIme 2021-0 2021- No 1000mg 1,000 mg, U nivers (MAXIPIME) 10-1512 IV ity of 1,000 mg in 09:15: 16:12 [place], [place] NaCl 0.9% 00 :17 Q12H ABX, Medic al (NS) 50 mL First dose Bra [facility] MINI-BAG on 10/15/21 at 0315, Until Discontinu ed, Administer over 30 Minutes, 50 mL
Reas on for Anti-Infec tive: Documented Infection< br>Documen britney Infection Site: Blood
D uration of Therapy: 7 days ipratropium 2021-0 Yes 3mL 3 mL, Unive [...] mg, Slow Un guillermina injection 4 10-15 IV Push, ity of mg 08:04: 17:33 [place], [place] 38 :44 Starting Medical on Sat Branch 10/15/21 at 0204, Until 10/19/21 at 1133, Routine, Pain (scale 7-10) lurasidone Yes Take by Uni vers HCl (LATUDA 7-17 mouth. ity of ORAL) 10:16: [place] 57 Medical Branch [facility] SMILEY EXT AA Univers ne valerate 5-24 BID ity of 0.1 % 00:00: [place] ointment 00 Medical Branch [facility] Yes TK 1 C PO U nivers -hydrochlor 5-24 QAM ity of othiazide 00:00: [place] 37.5-25 mg 00 Medical per capsule Branch [facility] SMILEY EXT AA Univers ne valerate 5-24 BID ity of 0.1 % 00:00: [place] ointment 00 Medical Branch [facility] Yes TK 1 C PO U nivers -hydrochlor 5-24 QAM ity of othiazide 00:00: [place] 37.5-25 mg 00 Medical per capsule Branch [facility] SMILEY EXT AA Univers ne valerate 5-24 BID ity of 0.1 % 00:00: [place] ointment 00 Medical Branch [facility] Yes TK 1 C PO U nivers -hydrochlor 5-24 QAM ity of othiazide 00:00: [place] 37.5-25 mg 00 Medical per capsule Branch [facility] SMILEY EXT AA Univers ne valerate 5-24 BID ity of 0.1 % 00:00: [place] ointment 00 Medical Branch [facility] SMILEY EXT AA Univers ne valerate 5-24 BID ity of 0.1 % 00:00: [place] ointment 00 Medical Branch [facility] Yes TK 1 C PO U nivers -hydrochlor 5-24 QAM ity of othiazide 00:00: [place] 37.5-25 mg 00 Medical per capsule Branch triterene Yes TK 1 C PO U nivers -hydrochlor 5-24 QAM ity of othiazide 00:00: [place] 37.5-25 mg 00 Medical per capsule Branch betamethaso Yes SMILEY EXT AA Univers ne valerate 5-24 BID ity of 0.1 % 00:00: [place] ointment [facility] TK 1 C PO U nivers [...] tablet 3-21 Q NIGHTLY ity of 00:00: [facility] Branch HYDROcodone Yes 1{tbl} Take 1 Un [...] mouth. [place] mg tablet 00 :00 [facility] Branch betamethaso 2013-0 Yes [id number] Apply to [facility] ne 2-13 area(s) ity of dipropionat 00:00: two (2) José Miguel as e 00 times Medical (DIPROLENE) daily. Branch 0.05 % cream betamethaso 2013-0 Yes [id number] Apply to Univers ne 2-13 area(s) ity of dipropionat 00:00: two (2) José Miguel as e 00 times Medical (DIPROLENE) daily. Branch 0.05 % cream betamethaso 2013-0 Yes [id number] Apply to Univers ne 2-13 area(s) ity of dipropionat 00:00: two (2) José Miguel as e 00 times Medical (DIPROLENE) daily. Branch 0.05 % cream betamethaso 2013-0 Yes [id number] Apply to [facility] ne 2-13 area(s) ity of dipropionat 00:00: two (2) José Miguel as e 00 times Medical (DIPROLENE) daily. Branch 0.05 % cream betamethaso 2013-0 Yes [id number] Apply to [facility] ne 2-13 area(s) ity of dipropionat 00:00: two (2) José Miguel as e 00 times Medical (DIPROLENE) daily. Branch 0.05 % cream betamethaso 2013-0 Yes [id number] Apply to [facility] ne 2-13 area(s) ity of dipropionat 00:00: two (2) José Miguel as e 00 times Medical (DIPROLENE) daily. Branch 0.05 % cream betamethaso 2013-0 Yes [id number] Apply to [facility] ne 2-13 area(s) ity of dipropionat 00:00: two (2) José Miguel as e 00 times Medical (DIPROLENE) daily. Branch 0.05 % cream Immunizations Ordered Filled Immunization Date Status Comments [facility] Immunization Name Name SARS-COV-2 COVID-19 2021-03-03 Completed Unive rsity of MODERNA VACCINE 00:00:00 [facility] Branch SARS-COV-2 COVID-19 2021-03-03 Completed Unive rsity of MODERNA VACCINE 00:00:00 [facility] Branch SARS-COV-2 COVID-19 2021-03-03 Completed Unive rsity of MODERNA VACCINE 00:00:00 [facility] SARS-COV-2 COVID-19 2021-03-03 Completed Unive rsity of MODERNA VACCINE 00:00:00 [facility] SARS-COV-2 COVID-19 2021-03-03 Completed Unive rsity of MODERNA VACCINE 00:00:00 [facility] SARS-COV-2 COVID-19 2021-03-03 Completed Unive rsity of MODERNA VACCINE 00:00:00 [facility] SARS-COV-2 COVID-19 2021-02-01 Completed Unive rsity of MODERNA VACCINE 00:00:00 [facility] SARS-COV-2 COVID-19 2021-02-01 Completed Unive rsity of MODERNA VACCINE 00:00:00 [facility] SARS-COV-2 COVID-19 2021-02-01 Completed Unive rsity of MODERNA VACCINE 00:00:00 [facility] SARS-COV-2 COVID-19 2021-02-01 Completed Unive rsity of MODERNA VACCINE 00:00:00 [facility] SARS-COV-2 COVID-19 2021-02-01 Completed Unive rsity of MODERNA VACCINE 00:00:00 [facility] SARS-COV-2 COVID-19 2021-02-01 Completed Unive rsity of MODERNA VACCINE 00:00:00 [facility] Influenza Virus 2007-07-02 Completed Universit y of Vaccine 00:00:00 [facility] Influenza Virus 2007-07-02 Completed Universit y of Vaccine 00:00:00 [facility] Influenza Virus 2007-07-02 Completed Universit y of Vaccine 00:00:00 [facility] Influenza Virus 2007-07-02 Completed Universit y of Vaccine 00:00:00 [facility] Influenza Virus 2007-07-02 Completed Universit y of Vaccine 00:00:00 [facility] Influenza Virus 2007-07-02 Completed Universit y of Vaccine 00:00:00 [facility] Influenza Virus 2007-07-02 Completed Universit y of Vaccine 00:00:00 [facility] Vital Signs Vital Name Observation Time Observation Value Comments Source Systolic blood 2021-11-11 18:12:00 152 mm[Hg] Univer sity of pressure [place] [facility] Diastolic blood 2021-11-11 18:12:00 93 mm[Hg] Unive rsity of pressure [place] [facility] Heart rate 2021-11-11 18:12:00 108 /min Universi ty [facility] [place] [facility] Body temperature 2021-11-11 18:12:00 37.06 Carleen Univ ersity of [place] [facility] Respiratory rate 2021-11-11 18:12:00 20 /min Univ ersity of [place] [facility] Oxygen saturation in 2021-11-11 18:12:00 95 /min University of Arterial blood by [place] [employer] dayna Pulse oximetry Branch Body height 2021-11-10 17:22:00 160 cm Universi ty [facility] [place] [facility] Body weight 2021-11-10 17:22:00 91 kg Universi ty [facility] [place] [facility] BMI 2021-11-10 17:22:00 35.54 kg/m2 Universi ty [facility] [place] [facility] Systolic blood 2021-10-24 17:05:00 143 mm[Hg] Univer sity of pressure [place] [facility] Diastolic blood 2021-10-24 17:05:00 90 mm[Hg] Unive rsity of pressure [place] [facility] Heart rate 2021-10-24 17:05:00 103 /min Universi ty [facility] [place] [facility] Body temperature 2021-10-24 17:05:00 36.22 Carleen Univ ersity [facility] [place] [facility] Respiratory rate 2021-10-24 17:05:00 18 /min Univ ersity of [place] [facility] Oxygen saturation in 2021-10-24 17:05:00 95 /min University of Arterial blood by [place] [employer] dayna Pulse oximetry Branch Body weight 2021-10-22 10:08:00 71.215 kg bed scale [facility] [place] [facility] BMI 2021-10-22 10:08:00 28.72 kg/m2 [facility] [place] [facility] Body height 2021-10-17 14:00:00 157.5 cm [facility]i [facility] [place] [facility] Systolic blood 2021-10-21 15:36:00 129 mm[Hg] Univer sity of pressure [place] [facility] Diastolic blood 2021-10-21 15:36:00 82 mm[Hg] Unive rsity of pressure [place] [facility] Heart rate 2021-10-21 15:36:00 100 /min [facility]i [facility] [place] [facility] Respiratory rate 2021-10-21 15:36:00 20 /min [facility] Oxygen saturation in 2021-10-21 15:36:00 100 /min [facility] Arterial blood by [facility] Pulse oximetry [place] Body temperature 2021-10-21 13:07:[address] [facility] Body height 2021-10-17 14:00:00 157.5 cm [facility] Body weight 2021-10-17 14:00:00 99.791 kg [facility] BMI 2021-10-17 14:00:00 28.72 kg/m2 [facility] Procedures Procedure Date / Time Performing Clinician Source Performed EKG-12 LEAD 2021-11-11 05:25:58 Sobeida Samson [facility] BASIC METABOLIC PANEL 2021-11-10 09:16:00 [facility] (NA, K, CL, CO2, GLUCOSE, Medica l Branch BUN, CREATININE, CA) CBC WITH DIFF 2021-11-10 09:16:00 [facility] o f [facility] LACTIC ACID WHOLE BLOOD 2021-11-10 09:16:00 Sobeida Samson [facility] CT CHEST PULMONARY 2021-11-10 04:49:21 Sobeida Samson [facility] ANGIOGRAM [facility] BLOOD CULTURE SCREEN 2021-11-10 03:58:[address] [facility] BLOOD CULTURE WORKUP 2021-11-10 03:58:[address] [facility] BLOOD CULTURE SCREEN 2021-11-10 02:56:[address] [facility] PROTHROMBIN TIME / INR 2021-11-10 01:47:[address] [facility] [address] [facility] [place] [facility]IMER 2021-11-10 01:47:00 Sobeida Samson [facility] ACTIVATED PARTIAL 2021-11-10 01:47:00 Sobeida Samson [facility] (ID NOW RAPID 2021-11-10 01:47:00 Sobeida Samson [facility] TESTING) Medical Branch LAB ONLY COVID 2021-11-10 01:47:00 Sobeida Samson [facility] INTERPRETATION [facility] Branch AC ABG + LACTIC ACID 2021-11-10 01:45:[address] [facility] XR CHEST 1 2021-11-10 01:38:00 Sobeida Samson [facility] Medical [place] COMP. METABOLIC PANEL 2021-11-10 01:32:00 Sobeida Samson [facility] ([id number]) Medical Branch CBC WITH DIFF 2021-11-10 01:32:00 Sobeida Samson [facility] CONSENT/REFUSAL FOR 2021-11-10 00:42:41 Doctor Unassigned, [facility] DIAGNOSIS AND TREATMENT [place] [facility] [place] AUTHORIZATION FOR RELEASE 2021-11-07 06:01:00 Doctor Unassigned, [facility] Name Medical [place] EXTERNAL PROVIDER - 2021-11-03 06:01:00 Doctor Unassigned, [facility] WOMEN'S SERVICES [place] [facility] [place] RADIOLOGY XR CHEST 1 2021-10-24 18:45:48 [facility] [place] XR CHEST 1 2021-10-24 18:45:48 Abu Mali [facility] BASIC METABOLIC PANEL 2021-10-24 12:36:00 [facility] (NA, K, CL, CO2, GLUCOSE, Medica l Branch BUN, CREATININE, CA) CBC WITHOUT DIFF 2021-10-24 12:36:00 [facility] BASIC METABOLIC PANEL 2021-10-24 12:36:00 kenny [facility] (NA, K, CL, CO2, GLUCOSE, Medica l Branch BUN, CREATININE, CA) CBC WITHOUT DIFF 2021-10-24 12:36:00 [facility] XR CHEST 1 2021-10-22 15:58:26 Abu Sher [facility] Medical [place] XR CHEST 1 2021-10-22 15:58:26 Anaya Kline [facility] MAGNESIUM 2021-10-22 10:47:00 Ezkevin Zelda [facility] BASIC METABOLIC PANEL 2021-10-22 10:47:00 Zelda Rose [facility] (NA, K, CL, CO2, GLUCOSE, Medica l Branch BUN, CREATININE, CA) CBC WITH DIFF 2021-10-22 10:47:00 Rose Zelda [facility] MAGNESIUM 2021-10-22 10:47:00 Ezzo [facility] BASIC METABOLIC PANEL 2021-10-22 10:47:00 Rose [facility] (NA, K, CL, CO2, GLUCOSE, Medica l Branch BUN, CREATININE, CA) CBC WITH DIFF 2021-10-22 10:47:00 Rose [facility] XR CHEST 1 VW 2021-10-21 22:10:00 Sunday [facility] XR CHEST 1 VW 2021-10-21 22:10:00 Abki Olivarez [facility] AC PANEL 20 + LACTIC ACID 2021-10-21 20:28:00 ki Olivarez [facility] AC PANEL 20 + LACTIC ACID 2021-10-21 20:28:00 Sunday Samson [facility] CYTO BAL 2021-10-21 18:49:00 Anaya Kline [facility] BODY FLUID DIRECT COUNT 2021-10-21 18:47:00 Anaya Kline [facility] BODY FLUID DIRECT COUNT 2021-10-21 18:47:00 Anaya Kline [facility] AFB CULTURE 2021-10-21 18:46:00 Sunday [facility] FUNGUS (ROUTINE) CULTURE 2021-10-21 18:46:00 ki [facility] MYCOBACTERIUM 2021-10-21 18:46:00 ki [facility]arez [facility] TUBERCULOSIS COMPLEX PCR Medical Branch RESPIRATORY PANEL BY PCR 2021-10-21 18:46:00 Anaya Kline [facility] AFB CULTURE 2021-10-21 18:46:00 Anaya Kline [facility] FUNGUS (ROUTINE) CULTURE 2021-10-21 18:46:00 Anaya Kline [facility] MYCOBACTERIUM 2021-10-21 18:46:00 Sunday Samsonlewis Caseamina [facility] TUBERCULOSIS COMPLEX PCR Medical [place] RESPIRATORY PANEL BY PCR 2021-10-21 18:46:00 Sunday Olivarez [facility] BASIC METABOLIC PANEL 2021-10-21 18:44:00 Sunday Case [facility] (NA, K, CL, CO2, GLUCOSE, Medica l Branch BUN, CREATININE, CA) BASIC METABOLIC PANEL 2021-10-21 18:44:00 Sunday Olivarez Case[facility] (NA, K, CL, CO2, GLUCOSE, Medica l Branch BUN, CREATININE, CA) CBC WITH DIFF 2021-10-21 18:41:00 Sunday Olivarez Caseamina [facility] PROTHROMBIN TIME / INR 2021-10-21 18:41:00 Sunday [facility]arez [facility] 2021-10-21 18:41:00 Anaya Kline [facility] CBC WITH DIFF 2021-10-21 18:41:00 Sunday Olivarez Caseamina [facility] PROTHROMBIN TIME / INR 2021-10-21 18:41:00 [facility] FIBR[facility] 2021-10-21 18:41:00 Abki [facility] ANTI-NUCLEAR ANTIBODY 2021-10-21 18:41:00 Anaya Kline [facility] FL TIME OR 2021-10-21 18:18:06 Anaya Kline [facility] (NON-REPORTABLE) [facility] FL TIME OR 2021-10-21 18:18:06 Sunday Olivarez [facility] (NON-REPORTABLE) [facility] FLEXIBLE BRONCHOSCOPY 2021-10-21 16:21:00 Anaya Kline [facility] FLEXIBLE BRONCHOSCOPY 2021-10-21 16:21:00 AbAnaya Dover [facility] XR CHEST 1 VW 2021-10-20 11:13:00 Abu Sher [facility] XR CHEST 1 VW 2021-10-20 11:13:00 Abu Malilewis [facility] CBC WITH DIFF 2021-10-20 10:30:00 Maggie Morgan [facility] CBC WITH DIFF 2021-10-20 10:30:00 Maggie Morgan [facility] URIC ACID 2021-10-20 10:29:00 Abu Sher [facility] BASIC METABOLIC PANEL 2021-10-20 10:29:00 Maggie Morgan [facility] (NA, K, CL, CO2, GLUCOSE, Medica l Branch BUN, CREATININE, CA) URIC ACID 2021-10-20 10:29:00 Abu Malilewis [facility] BASIC METABOLIC PANEL 2021-10-20 10:29:00 Maggie Morgan [facility] (NA, K, CL, CO2, GLUCOSE, Medica l Branch BUN, CREATININE, CA) XR CHEST 1 2021-10-19 18:11:14 Abki Olivarez [facility] XR CHEST 1 2021-10-19 18:11:14 Abu Malilewis [facility] CBC WITH DIFF 2021-10-19 09:05:00 Maggie Morgan [facility] CBC WITH DIFF 2021-10-19 09:05:00 Maggie Morgan [facility] MAGNESIUM 2021-10-19 09:04:00 Zelda Rose [facility] BASIC METABOLIC PANEL 2021-10-19 09:04:00 Maggie Morgan [facility] (NA, K, CL, CO2, GLUCOSE, Medica l Branch BUN, CREATININE, CA) MAGNESIUM 2021-10-19 09:04:00 Zelda Rose [facility] BASIC METABOLIC PANEL 2021-10-19 09:04:00 Maggie Morgan [facility] (NA, K, CL, CO2, GLUCOSE, Medica l Branch BUN, CREATININE, CA) POCT GLUCOSE (AUTOMATED) 2021-10-19 02:24:00 Blanca Talavera [facility] POCT GLUCOSE (AUTOMATED) 2021-10-19 02:24:00 Blanca Talavera [facility] COVID-19 (MOLECULAR 2021-10-18 19:48:00 Vale Jones [facility] NUCLEIC ACID AMPLIFICATION) LAB ONLY COVID 2021-10-18 19:48:00 [facility] COVID-19 (MOLECULAR 2021-10-18 19:48:00 Vale Jones [facility] NUCLEIC ACID AMPLIFICATION) LAB ONLY COVID 2021-10-18 19:48:00 [facility] ANGIOTENSIN CONVERTING 2021-10-18 19:45:00 [facility]HE[facility] 2021-10-18 19:45:00 Amadou [facility] ANCA SCREEN 2021-10-18 19:45:00 [facility] ANGIOTENSIN CONVERTING 2021-10-18 19:45:00 Vale [facility] RHEUMAT[facility] FA[facility] 2021-10-18 19:45:00 Amadou [facility] ANCA SCREEN 2021-10-18 19:45:00 Robert [facility] XR CHEST 1 VW 2021-10-18 12:37:00 Abu Sher [facility] XR CHEST 1 VW 2021-10-18 12:37:00 Abu Sher [facility] PHOSPHORUS 2021-10-18 09:30:00 Zelda Rose [facility] MAGNESIUM 2021-10-18 09:30:00 Ezzo [facility] BASIC METABOLIC PANEL 2021-10-18 09:30:00 Rose [facility] (NA, K, CL, CO2, GLUCOSE, Medica l Branch BUN, CREATININE, CA) CBC WITH DIFF 2021-10-18 09:30:00 Ezzo, [facility] GLYCOSYLATED HEMOGLOBIN 2021-10-18 09:30:00 Maggie Morgan [facility] (A[facility]) Medical Branch PHOSPHORUS 2021-10-18 09:30:00 Ezzo, [facility] MAGNESIUM 2021-10-18 09:30:00 Ezzo, [facility] BASIC METABOLIC PANEL 2021-10-18 09:30:00 Rose [facility] (NA, K, CL, CO2, GLUCOSE, Medica l Branch BUN, CREATININE, CA) CBC WITH DIFF 2021-10-18 09:30:00 Ezkevin, [facility] GLYCOSYLATED HEMOGLOBIN 2021-10-18 09:30:00 Maggie Morgan [facility] (A1C) Medical [place] BASIC METABOLIC PANEL 2021-10-18 00:43:00 Abu [facility] [place] [facility] (NA, K, CL, CO2, GLUCOSE, Medica l Branch BUN, CREATININE, CA) BASIC METABOLIC PANEL 2021-10-18 00:43:00 Abu [facility] (NA, K, CL, CO2, GLUCOSE, Medica l Branch BUN, CREATININE, CA) N-TERMINAL PRO-BNP 2021-10-17 21:27:00 Samir Galindo [facility] N-TERMINAL PRO-BNP 2021-10-17 21:27:00 Samir Galindo [facility] TRANSTHORACIC ECHO (TTE) 2021-10-17 17:05:00 Bk [facility] TRANSTHORACIC ECHO (TTE) 2021-10-17 17:05:[address] [facility] COMPLETE [facility] XR CHEST 1 VW 2021-10-17 17:00:50 Josie [facility] XR CHEST 1 VW 2021-10-17 17:00:50 Josie [facility] XR CHEST 1 VW 2021-10-17 14:17:12 Josie, [facility] XR CHEST 1 VW 2021-10-17 14:17:12 Josie [facility] ABG+COOX+NA+K+GLU+CA2+ 2021-10-17 13:25:00 Shadi Rodriguez [facility] ABG+COOX+NA+K+GLU+CA2+ 2021-10-17 13:25:00 [facility] PHOSPHORUS 2021-10-17 10:28:00 Josie [facility] MAGNESIUM 2021-10-17 10:28:00 Josie [facility] BASIC METABOLIC PANEL 2021-10-17 10:28:00 Josie [facility] (NA, K, CL, CO2, GLUCOSE, Medica l Branch BUN, CREATININE, CA) SEDIMENTATION RATE 2021-10-17 10:28:00 Shadi Rodriguez [facility] CBC WITH DIFF 2021-10-17 10:28:00 Josie [facility] ANTI-NUCLEAR ANTIBODY 2021-10-17 10:28:00 Tla [facility] ANTI-NUCLEAR ANTIBODY 2021-10-17 10:28:00 Shadi Rodriguez [facility] ANTI-DOUBLE STRANDED DNA 2021-10-17 10:28:00 Amadou Putnam [facility] HIV 1/2 AG-AB WITH REFLEX 2021-10-17 10:28:00 Anaya Kline [facility] ANTI-NUCLEAR 2021-10-17 10:28:00 Tal [facility] ANTIBODY-PATHOLOGIST Medical [facility] INTERPRETATION PHOSPHORUS 2021-10-17 10:28:00 Josie [facility] MAGNESIUM 2021-10-17 10:28:00 Josie [facility] BASIC METABOLIC PANEL 2021-10-17 10:28:00 Josie [facility] (NA, K, CL, CO2, GLUCOSE, Medica l Branch BUN, CREATININE, CA) SEDIMENTATION RATE 2021-10-17 10:28:00 Tal [facility] CBC WITH DIFF 2021-10-17 10:28:00 Josie [facility] ANTI-NUCLEAR ANTIBODY 2021-10-17 10:28:00 RodriguezShadi العراقي [facility] SCREEN [facility] ANTI-NUCLEAR ANTIBODY 2021-10-17 10:28:00 Rodriguez [facility] TITER [facility] ANTI-DOUBLE STRANDED DNA 2021-10-17 10:28:00 Amadou Putnam [facility] HIV 1/2 AG-AB WITH REFLEX 2021-10-17 10:28:00 Anaya Kline [facility] ANTI-NUCLEAR 2021-10-17 10:28:00 Tal [facility] ANTIBODY-PATHOLOGIST Medical [facility] INTERPRETATION BLOOD CULTURE SCREEN 2021-10-16 17:40:[address] [facility] [place] [place] [facility]ULT[facility] SCREEN 2021-10-16 17:40:00 Amadou Putnam Un [facility] XR CHEST 1 VW 2021-10-16 16[facility]56[facility] 2021-10-16 16:56:36 [facility] RESPIRATORY PANEL BY PCR 2021-10-16 14:46:00 Amadou Putnam [facility] RESPIRATORY PANEL BY PCR 2021-10-16 14:46:00 Amadou Putnam [facility] PHOSPHORUS 2021-10-16 10:47:00 Josie [facility] MAGNESIUM 2021-10-16 10:47:00 Josie [facility] BASIC METABOLIC PANEL 2021-10-16 10:47:00 Josie [facility] (NA, K, CL, CO2, GLUCOSE, Medica l Branch BUN, CREATININE, CA) CBC WITH DIFF 2021-10-16 10:47:00 Samir Galindo [facility] AC PANEL 20 + LACTIC ACID 2021-10-16 10:47:00 [facility] PHOSPHORUS 2021-10-16 10:47:00 Samir Galindo [facility] MAGNESIUM 2021-10-16 10:47:00 Samir Galindo [facility] BASIC METABOLIC PANEL 2021-10-16 10:47:00 Samir Galindo [facility] (NA, K, CL, CO2, GLUCOSE, Medica l Branch BUN, CREATININE, CA) CBC WITH DIFF 2021-10-16 10:47:00 Samir Galindo [facility] AC PANEL 20 + LACTIC ACID 2021-10-16 10:47:00 Samir Galindo [facility] C-REACTIVE PROTEIN 2021-10-15 22:38:00 Tal [facility] TROPONIN I 2021-10-15 22:38:00 [facility]IC MET[facility]OLIC PANEL 2021-10-15 22:38:00 Samir Galindo [facility] (NA, K, CL, CO2, GLUCOSE, Medica l Branch BUN, CREATININE, CA) C-REACTIVE PROTEIN 2021-10-15 22:38:00 Tal [facility] TROPONIN I 2021-10-15 22:38:00 Ilan [facility] BASIC METABOLIC PANEL 2021-10-15 22:38:00 Samir Galindo [facility] (NA, K, CL, CO2, GLUCOSE, Medica l Branch BUN, CREATININE, CA) PNEUMOCOCCAL ANTIGEN 2021-10-15 21:49:00 Samir Galindo [facility] PNEUMOCOCCAL ANTIGEN 2021-10-15 21:49:00 Samir Galindo [facility] LEGIONELLA URINARY 2021-10-15 21:48:00 Samir Galindo [facility] ANTIGEN [facility] LEGIONELLA URINARY 2021-10-15 21:48:00 Samir Galindo [facility] ANTIGEN [facility] Medical [place] ANGIOGRAM CHEST 2021-10-15 19:22:00 Anaya [facility] ANGIOGRAM CHEST 2021-10-15 19:22:00 Anaya [facility] TROPONIN I 2021-10-15 17:29:00 [facility] RAPID INFLUENZA A/B 2021-10-15 17:29:00 Nicol [facility] N-TERMINAL PRO-BNP 2021-10-15 17:29:00 Nicol [facility] PROCALCITONIN 2021-10-15 17:29:00 Nicol Bourgeois [facility] COVID-19 (MOLECULAR 2021-10-15 17:29:00 Nicol [facility] NUCLEIC ACID AMPLIFICATION) LAB ONLY COVID 2021-10-15 17:29:00 Nicol Bourgeois [facility] TROPONIN I 2021-10-15 17:29:00 [facility] RAPID INFLUENZA A/B 2021-10-15 17:29:00 Nicol [facility] N-TERMINAL PRO-BNP 2021-10-15 17:29:00 Nicol [facility] PROCALCITONIN 2021-10-15 17:29:00 Nicol Bourgeois [facility] COVID-19 (MOLECULAR 2021-10-15 17:29:00 Nicol [facility]geois [facility] NUCLEIC ACID AMPLIFICATION) LAB ONLY COVID 2021-10-15 17:29:00 Vito Bourgeoisdaysi [facility] INTERPRETATION [facility] Branch COVID-19 (ID NOW RAPID 2021-10-15 13:03:00 Samir Galindo [facility]) Medical Branch LAB ONLY COVID 2021-10-15 13:03:00 Samir Galindo [facility] Branch COVID-19 (ID NOW RAPID 2021-10-15 13:03:00 Samir Galindo [facility] TESTING) Medical Branch LAB ONLY COVID 2021-10-15 13:03:00 Josie [facility] XR CHEST 1 VW 2021-10-15 09:46:38 [facility] 1 VW 2021-10-15 09:46:38 Ilan [facility] MAGNESIUM 2021-10-15 08:16:00 Josie [facility] BASIC METABOLIC PANEL 2021-10-15 08:16:00 Josie [facility] (NA, K, CL, CO2, GLUCOSE, Medica l Branch BUN, CREATININE, CA) PROCALCITONIN 2021-10-15 08:16:00 Ilan [facility] MAGNESIUM 2021-10-15 08:16:00 Josie [facility] BASIC METABOLIC PANEL 2021-10-15 08:16:00 Samir Galindo [facility] (NA, K, CL, CO2, GLUCOSE, Medica l Branch BUN, CREATININE, CA) PROCALCITONIN 2021-10-15 08:16:00 Ilan [facility] ABG+COOX+NA+K+GLU+CA2+ 2021-10-15 07:24:00 Samir [facility]indo [facility] ABG+COOX+NA+K+GLU+CA2+ 2021-10-15 07:24:00 Samir Galindo [facility] TROPONIN I 2021-10-15 07:10:00 Ilan [facility] CBC WITH DIFF 2021-10-15 07:10:00 Josie [facility] TROPONIN I 2021-10-15 07:10:00 Ilan [facility] CBC WITH DIFF 2021-10-15 07:10:00 Josie [facility] MRSA / MSSA SCREEN BY 2021-10-15 07:09:00 Josie Samir [facility] MRSA / MSSA SCREEN BY 2021-10-15 07:09:00 Samir Galindo [facility] AUTHORIZATION FOR RELEASE 2021-06-09 05:01:00 Doctor Casandra, [facility] [place] [facility] Encounters Start End Encounter Admission Attending Care Care Encounter Source Date/Time Date/Time Type Type Clinicians Facility Department ID 2021-11-09 2021-11-11 Outpatient X MICHEL [facility] ERIN [id number] Univers 18:47:00 17:31:00 [facility] 2021-11-09 2021-11-11 Emergency Sobeida Samson [facility] 1.2.8 40.114 [id number] Univers 18:47:00 17:31:00 Kaylenandrew [facility] 350.1.13.10 [place] [id number] [facility] 116 Branch ([facility]) 2021-11-07 2021-11-07 Orders Doctor MARISCAL 1.2.840.114 [id number] Univers 00:00:00 00:00:00 Only Unassigned, BETH 350.1.13.10 ity of [place] [facility] 4.2.7.2.686 José Miguel as [phone] [place] [address] Branch 2021-11-03 2021-11-03 Orders Doctor MARISCAL 1.2.840.114 [id number] Univers 00:00:00 00:00:00 Only Unassigned, BETH 350.1.13.10 ity of [place] [facility] 4.2.7.2.686 José Miguel as [phone] [facility] 009 Branch 2021-10-25 2021-10-25 Transition SABINA Waters 1.2.840.114 [id number] Univers 00:00:00 00:00:00 of Care Any DOHERTY 350.1.13.10 i [place] [phone] [facility] 403 Branch 2021-10-15 2021-10-24 Inpatient U REHANA [facility] ERIN [id number] Univers 00:23:00 17:53:00 FLASH ity of [facility] 2021-10-15 2021-10-24 Hospital Blanca Talavera [facility] 1.2.840.114 [id number] Univers 00:23:00 17:53:00 Encounter Micheal Galindoiaz HEALTH 350.1.13.10 ity of RodriguezShadi العراقي [place] 4.2.7.[address] [facility] [place], [place] [phone] [facility] 113 Branch ([facility]) 2021-10-21 2021-10-21 Surgery Abu [facility] 1.2.840.114 [id number] Univers 10:00:00 10:45:00 Atherah, HEALTH 350.1.13.10 i ty of Anaya [place] 4.2.7.2.686 [facility] bjorn [place] [phone] [facility] 020 Branch ([facility]) 2021-06-09 2021-06-09 Orders Doctor LOIDA 1.2.840.114 [id number] Univers 00:00:00 00:00:00 Only Unassigned, BETH 350.1.13.10 ity of [place] [facility] 4.2.7.2.686 José Miguel as [phone] [facility] 009 Branch Results Test Description Test Time Test Comments Results Result Comments Source Basic Metabolic Panel (NA, K, CL, CO2, GLUCOSE, BUN, 2021-11 09:40:55 CREATININE, CA) Test Item Value Reference Range Interpretation Comme nts NA (test code = 2870724727) 138 mmol/L 135-145 K (test code = 7055148295) 3.4 mmol/L 3.5-5.0 L CL (test code = 6188425492) 107 mmol/L 98-108 CO2 TOTAL (test code = 1798304843) 25 mmol/L 23-31 AGAP (test code = 9263611059) 2-16 BUN (test code = 3625809390) 15 mg/dL 7-23 GLUCOSE (test code = 3806683534) 110 mg/dL 70-110 CREATININE (test code = 0.81 mg/dL 0.50-1.04 2858072959) CALCIUM (test code = 3539458910) 7.8 mg/dL 8.6-10.6 L eGFR (test code = 2483040184) mL/min/1.73m2 LUCILLE (test code = LUCILLE) Association [...] tests). Lab Interpretation (test code = Abnormal 44134-2) [facility] with [id number] 09:25:30 Test Item Value Reference Range Interpretation Comments WBC (test code = See_Comment H [Automated 4377-2) message] The sy stem which generated this result transmitted reference range : 4.30 - 11.10 10*3/?L. The reference range was not used to interpret this result as normal/abnormal . RBC (test code = See_Comment L [Automated 359-8) message] The sy stem which generated this [...] (test code = 57.2 fL 39.0-49.9 H 34871-2) RDW-CV (test code = 17.0 % 12.0-15.5 H 788-0) PLT (test code = See_Comment [Automated 777-3) message] The sy stem which generated this result transmitted reference range : 166 - 358 10*3/ ?L. The reference r nicholas was not used to interpret this result as normal/abnormal . MPV (test code = 9.2 fL 9.5-12.9 L 05682-2) NRBC/100 WBC (test See_Comment [Automat ed code = 9483565345) message] The system which generated this result transmitted reference range : 0.0 - 10.0 /100 WBCs. The refer ence range was not u sed to interpret th is result as normal/abnormal . NRBC x10^3 (test code See_Comment [Auto mated = 2852471014) message] The s ystem which generated this result transmitted reference range : 10*3/?L. The reference range was not used to interpret this result as normal/abnormal . GRAN MAT (NEUT) % 72.2 % (test code = 770-8) IMM GRAN % (test code 1.30 % = 3915123370) LYMPH % (test code = 18.9 % 736-9) MONO % (test code = 6.3 % 5905-5) EOS % (test code = 1.2 % 713-8) BASO % (test code = 0.1 % 706-2) GRAN MAT x10^3(ANC) 8.06 10*3/uL 1.88-7.09 H (test code = 7462632708) IMM GRAN x10^3 (test 0.14 10*3/uL 0.00-0.06 H code = 4076898972) LYMPH x10^3 (test code 2.10 10*3/uL 1.32-3.29 = 731-0) MONO x10^3 (test code 0.70 10*3/uL 0.33-0.92 = 742-7) EOS x10^3 (test code = 0.13 10*3/uL 0.03-0.39 711-2) BASO x10^3 (test code <0.03 0.01-0.07 = 704-7) Lab Interpretation Abnormal (test code = 81728-9) [facility] Whole [id number] 09:22:39 Test Item Value Reference Range Interpretation Comments LACTIC ACID (test code = 3.32 mmol/L 0.50-2.20 H 2408703041) Lab Interpretation (test code = Abnormal 95723-4) [facility] THRMPLAS [id number] 02:13:42 Test Item Value Reference Range Interpretation Comments APTT Patient (test code See_Comment L [Au tomated message] = 3173-2) The system [employer] generated this result transmitted ref erence range: 26 - 36 Seconds. The reference range was not used to int erpret this result as normal/abnormal . Lab Interpretation (test Abnormal code = 27428-7) [facility] / [id number] 02:13:42 Test Item Value Reference Range Interpretation [...] tions. Lab Interpretation (test Normal code = 76731-5) [facility]-[id number] 02:13:42 Test Item Value Reference Interpretation Comments Range D-DIMER (test code = See_Comment H [Autom ated 2882833717) message] The system which generated this result [...] diagnosis. Lab Interpretation Abnormal (test code = 39354-3) [facility]. METABOLIC PANEL (66681)2021-11-10 01:57:17 Test Item Value Reference Range Interpretation Comments NA (test code = 139 mmol/L 135-145 8373619092) K (test code = 3.9 mmol/L 3.5-5.0 3854054524) CL (test code = 106 mmol/L 98-108 3226314004) CO2 TOTAL (test code = 27 mmol/L 23-31 4603980844) AGAP (test code = 2-16 1799810054) BUN (test code = 17 mg/dL 7-23 0006692961) GLUCOSE (test code = 135 mg/dL 70-110 H 2281728775) CREATININE (test code = 0.72 mg/dL 0.50-1.04 6833068675) TOTAL BILI (test code = 0.3 mg/dL 0.1-1.8 9091396632) CALCIUM (test code = 8.1 mg/dL 8.6-10.6 L 9827198775) T PROTEIN (test code = 5.6 g/dL 6.3-8.2 L 0978758845) ALBUMIN (test code = 3.3 g/dL 3.5-5.0 L 9024255259) ALK PHOS (test code = 126 U/L 34-122 H 5310979702) ALTv (test code = 47 U/L 5-35 H 1742-6) AST(SGOT) (test code = 27 U/L 13-40 3834860749) eGFR (test code = mL/min/1.73m2 0904037642) LUCILLE (test code = LUCILLE) Association of [...] tests). Lab Interpretation Abnormal (test code = 33471-9) [facility] + LACTIC [id number] 01:51:44 Test Item Value Reference Range Interpretation Comments PH (test code = 2) 7.35-7.45 PCO2 (test code = See_Comment [Automat ed 5527120711) message] The sy stem which generated this result transmitted reference range : 35 - 45 mmHg. The reference range was not used to interpret this result as normal/abnormal . PO2 (test code = See_Comment L [Automated 0035243679) message] The sy stem which generated this result transmitted reference range : 80 - 100 mmHg. The reference range was not used to interpret this result as normal/abnormal . HCO3 (test code = See_Comment [Automate d 9898663803) message] The sy stem which generated this result transmitted reference range : 22 - 26 mEq/L. The reference range was not used to interpret this result as normal/abnormal . BE (test code = See_Comment [Automated 3587717360) message] The sy stem which generated this result transmitted reference range : -3.0 - 3.0 mEq/ L. The reference r nicholas was not used to interpret this result as normal/abnormal . LACTIC ACID (test code 4.25 mmol/L 0.50-2.20 H QUES = 6197979345) Lab Interpretation Abnormal (test code = 54814-3) [facility] WITH [id number] 01:50:58 Test Item Value Reference Range Interpretation [...] (test code = 55.7 fL 39.0-49.9 H 74305-8) RDW-CV (test code = 16.8 % 12.0-15.5 H 788-0) PLT (test code = See_Comment [Automated 777-3) message] The system which generated this result transmit britney reference range : 166 - 358 10*3/ ?L. The reference range was not u sed to interpret th is result as normal/abnormal . MPV (test code = 9.5 fL 9.5-12.9 90026-7) NRBC/100 WBC (test See_Comment [Automat ed code = 2166454719) message] The system which generated this result transmit britney reference range : 0.0 - 10.0 /100 WBCs. The reference range was not used to interpret this result as normal/abnormal . NRBC x10^3 (test code <0.01 See_Comment [Auto mated = 0736377893) message] The system which generated this result transmit britney reference range : 10*3/?L. The reference range was not used to interpret this result as normal/abnormal . GRAN MAT (NEUT) % 84.7 % (test code = 770-8) IMM GRAN % (test code 0.80 % = 0237310265) LYMPH % (test code = 10.9 % 736-9) MONO % (test code = 3.4 % 5905-5) EOS % (test code = 0.1 % 713-8) BASO % (test code = 0.1 % 706-2) GRAN MAT x10^3(ANC) 11.84 10*3/uL 1.88-7.09 H (test code = 8509721576) IMM GRAN x10^3 (test 0.11 10*3/uL 0.00-0.06 H code = 0925375885) LYMPH x10^3 (test code 1.52 10*3/uL 1.32-3.29 = 731-0) MONO x10^3 (test code 0.47 10*3/uL 0.33-0.92 = 742-7) EOS x10^3 (test code = <0.03 0.03-0.39 L 711-2) BASO x10^3 (test code <0.03 0.01-0.07 = 704-7) Lab Interpretation Abnormal (test code = 82674-6) [facility] [id number] 21:38:57 Test Item Value Reference Range Interpretation Comments Case Report (test Non-Gynecologic Cytology code = 5942425226) ?Case: [id number] ?Authorizing Provider: ?Anaya Kline MD ? ? Collected: ? 10/21/2021 1249 ?Ordering Location: ? ? [facility] ?Received: ?10/21/2021 1257 ? Medicine/Surgery CLC 7B ?Pathologist: ? Glenna Alejandra MD ? Specimen: ? ?LUNG, LEFT UPPER LOBE, BRONCHOALVEOLAR LAVAGE ? Final Diagnosis (test e2fcnSEdHEOmq6jyZWLngTQi code = 0300346669) ZzEwMzNcZnRuYmpcdWMxIHtc cnRmMVxlcGljOTYwMVxhbnNp MRLdgOIxB0JgciitSCwiVT9e SW6tmDwksVYybUDxVGGeSnNt k2aky641vJNdx3fjZSIIloec pLx1yUcdN91jn6I6HeykK7hi ZWQwXGdyZWVuMFxibHVlMDt9 XHBhcGVydzEyMjQwXHBhcGVy uBH0WQWxCM4uuvshGSzaUHee KVVfxsX3ETQtyEVdO1DvARGd RC7mxutqUVR8DJiuJKBlKBI1 ZnYaKBKrj8Nzujo1RxChrUDm ZFxwbGFpblxmczIwXHBhclxi IEExLiAgTFVORywgTEVGVCBV SOOVWgFSA5NDKvZUKu8RL2oZ MYkGYZ2KUTAoMILFDRqYDzth GUZfTnRqLUImHywvJoWoDo6p HMVBKJxDEK3MITOSNHrPCGsB CC1YPELCENHvNHkrBHGlC9XL QEFNHX7ANpBeLFOvjlgaNqUh qJSqxUqpvxCeDPtzg6DeD8Iq MjAwMFxhbnNpXGRlZmxhbmcx CLGcGWL8iuOtNERxBRuiLAAp MZwfCu5jyFNjbOizBxZvWLJc r5lrlcLHVLjiQaUxL359FMGu WJmhu6tjy4ZkNWCdbLRsy9V8 YEMJqcwhgHk5c6azYtRqOrQ1 oZJzSKpxP9emjcWgyRPiP5Fp qWJafLz7nKgvO51cu7T2Ayzv P7hoSOGvJKCxM8XhKF0yXOYn Lse7PYN0VPT3PPWiWTFcP0Tq XR7bLHNrzJGfXTc8m9rwgHto JOIiBKS7k2xtDAgoefW2UW8f oo9sdTf3w0xvfyUnLINsNXYi jCIWAJXfD9SjzOrqJy3wjHb7 fVdvRrmiXUO0Uih9QT9dkk54 hhu9pXhzXJCsadquGbV9OIgh QJLajnuhEPh2QYpnJEYzrHZ5 EMGmuNElN1YdLPGaZD4koub0 VFY2GPrbBWDfIcU0URYodLCt NRNyxIieNQiti639BLX3UkDz YS8bD5Emc1W7nM8xbPKmCGYh jBDbRsOiLYCwbf4wnHLsXXyi b6BoTBC0ezS2yQVimEYiAABa GO02Nhmdz8IqFccaDVX1GYSk jaGuh4Zak4beQgQybjHiQ5hb V3NsIECcBLYxHVCeNcPnnvIv k2Wbj9PfaFCmlWi2q6wnOWBj JTEjzJotr1zuQAQ0WPFbH2W3 eFWye2lnXKddQFMheWF2tcW0 XOWwvFUuI0LstY9lBOWfJW9d vwx8o5irKWV0JSraLBOyHtG8 agL4FYZwqIDeFOThbNlmLKbk l353JPY1SeIiPGAgj9EzM2Uy aAgbI66rjYrgD32mDGDkoFbb qZ8xjZnxcT6sRbKwSiQmWWlb bFxwbGFpblxmMVxmczIwXGxh elxeMONaGFegE5yfCdWyOFJw rXhpOTizf5LeDAZqEKTqJrot czIwXHBhciBJIGhhdmUgcGVy f90wCFoldJSvBZMyQXcaLSHw iCakg5XtU5quIL3dL2BcyYBf atLybbGoVIntEFJel7s2uGQj hPezu7FvfLMsWM46rsUnBQFe MPH1YAVnd4iuFV08pttnYxJa nF10bbQdeqHdTOYrd8ldO7rl fXOjf9Rvc6ZpmdUhJMkpj2Rb JT5byCFixthumZM2GCFqfLGl bpLnbvJ8fZlbTMIltT5dkG7u tWebjL0fYtPxQlAhYXqgBS1f RAHxQ2ywdGVwHMTcUZQpX6wh DhEbdO2jcCzkPzsvmsY0ZBQw cn19 Final Diagnosis h6clsJRgUBGriPW1AzUkXJFx Comment (test code = l0fdh0UkpJOswOBcDUapnDYj 8132859744) iiXndt38vHX1cL06PF0sHJKd UhZ7SXWgvbI1Wyg6NOCdPKFa yDBgZ286s2ame3jwofGxjWF3 STZuNTRcY2JgHU1mFTZmzCHj U15okWAyWQR5CQTmLGYbpBGq LIQoVFN3QRFkbJVvZ7hiFOKe YO4vqfaxSCalIYmoKPSkyDD4 RVNabUGpB6DcCVOgJMsyTOEg gyv4QoObEm3bqWOuqHkbHJbt IXZhCFYjGAyvWEXjVhDrD09m CYDqWFCym9cjpJ6ktFp1CWKq q07ocO0lRHOnuUdkrNfztMRq RMqsgsLeqbEfSsP7BPOsjmSd pBXwIO5kH2RlaElkT2VqRbAP DDLpDUgrd2RvOW6fSYK6nWYl RgSjujC5nU1faLAcsiAcNNIw HjNdW1KtFX7oNT9hoFcvifAl dCBjZWxscyBpZGVudGlmaWVk FgqlZEWfC2HyROAxok5= Clinical Information 1. Pneumonia / covid / (test code = SARS 5486107067) Gross Description e3kelNGeCXHzmXT7WfPjASNs (test code = e3zaz3PcgDGlsBRyESuweQJz 6917586203) eeJsjg94tZT1fG19XT6zZMNe ItV6DTRwxjX3Aff6EABtGOJg rTQzS340t7ofj3yodoBulSO1 IJCuUUKeF2XnIP9qYLLhsAXf K03haGVjYNH7THGmUYDzxWOn UADkJHG2HWBupUFwN0lxAWHz ON1ubordDPaaJMdgTZSamFI3 RNMekAVqV9OjPLQtNOqwTKJx efh0MwYnAv2nlPFhiEffPJrg HDUwx2odFZVyeMHcBEW5AAdd fSMdUXWnUJXcZPz7BRIvUDvn iSNsGX3hcKmtWeeurJoxz2Td dCBcXGlkIDUxMDAyIFxcZGIg D2TMLFCsBfTjNgk6SHPhTBp5 VSn2VJ4LAsPgPZVlVaj1UFOe ZlHgPHf8RKefKX7KTIH4SoR6 MFJuAkytFITiAzMwXKq8RHWq XFxmbCBcXGYgQXJpYWwgXFxm ozSkQBHhQV5wiUnwgGQqvlaf czIwXHBhclxmczIyXHBhciBB CB2zKSpIAoeuTXuHWqCdUKLR XHWzOB4CWUigWkXBAwPOM5DP VkVPTEFSIExBVkFHRVxwYXJc LlBkBGjxBfAnSeSpILh3IVUa XpGup9ddjTKlT7ZbssAmNGZp sPExTVE4XRBdE9Jnm0XnY8hy LODxLmf9hAWtdgEoRCo7QXXf BkTlq5muvRZkQBSvISYjzsQb ZOMuy4idDTPdRAeQwHWen2Vp zqXdrrUqIXBqvAserpQ5FOFn Wv3pTB8tq0NwyGThfkWpRXBP ZIBpchdle8ejd8Whh7LbrU0y ZClcZnMyMlxjZjAgIHtcZXBp B6ZjF1MdtdJ3i6txaCzxg4Ek oMZsBJ0veGXryA== Disclaimer (test code h6gljNSiABXfd3olVSXefHKf = [id number]) ZzEwMzNcZnRuYmpcdWMxIHtc iuItVRxgu0QfQ0QbOzWeUEas bnNpXGRlZmxhbmcxMDMzXGZ0 jnKmJQToFMstUQMdPVhsYo0a nCGnnCvnHgThHRWay8yjqbEA HRcaMgFeW373KIGhUDbkx7vm h5XrIHRgwISqc8M0GJZEngwj zCo5kEkwM72cw3I4ZfazG8yo WGVeNILqE5HhVI0kDDRfXcx6 EZE1DGJ4MKNpDBMcI4VlGW2j QABimGGaPRs3k7qdvDehHVGx VFD3g2ppVSqsbvHfQO7hbz5j wGx1f7tdlaDtOOSlIBGckNOT OEWiK2BhqMdgNe8ftTp1jNyh QfqlIYI0Brq8XB7gun77bha3 wAmcKHRvhrygNsX9ORcjZKSd pjqeNOo6SHcxRUEefFY6AZFa aGWoN5DgUXDtCS7qgnz9OLJ5 UWbpSMLgSgW3ORVrnEDmBAKk xMqrUMmbv262OOK5IxYqEJ0o Y5Dnq4H4yQ4yiKWwPKRqdIFi NmUnDQQvrb5fzHGyDDptr6Qs ZLH8ezV7iQVswAGoAVXmUT81 Mdzpi6EcCmrls4IbB11ruRX2 MLbrk7uhNS9gMmO4ihVjDPll t7sepB9eGhX9KEdzXM8aYN3i PRQcfO6wcafsGSPbPdOzfdxq UWToxLcfuhLrTp5zmPwaJYN7 KRbkP5zdkN5fLiN4UBmlI7cd rG2pHBd0SPcojND1SIJuuO5k MP5bywepg1qhPEgsCMdnKYAu uwC7yeK6QCQobTReG4GhuV1i YUFiKV6rkwrkl1fxIRD9NFlf ELViPCH6CgVyPYHbp5Lppse1 RnKqh3RbfYOzWYruZ53xs656 BEVbabHyP4ljhKVabeawjRAo fmgiHJjdoaO1FOEbfvZbf6Ri FQCpXNG2NOycXSgusBVqNHTp cGpdp9ofZ4TveNNeJGKjGEaa XGYxXGZzMjBcbGFuZzEwMzNc aGljaFxmMVxkYmNoXGYxXGxv K8gyXvQkP3GbHICtSdNjtFEw G3rwPIntraXiQHCacmUseAV1 SFrwD1c2UDCoaoHhkLr7tpBy AzBmCMQjPUD1NIoutLLpMRVs l5NivqhgvEHtMc2rmTUoJHWw hX9oDHSiNBBqDObvKB8wgHy4 BPMMiDFlcRQqPnDWKKWpQQ61 voJbCLIXbnosw6H2UDeoIPVt a4IbyRZoG5uzn6AqTNWdx28u WB3rs0Q2q8sfDXB1PT3uv8Aq MSJhjVQkeZXdGBUyu3Etjflt a2BzGVSjanIza9DlOKEmdqEy mOEzCNQakqTvjy6xvkSiGTIz DGZlY3MkwrnnmFzjawDmXITe su3mamStZEW9YXXJQUNoJIFr g7OehX7qiXPWRWD5nJUocc0b ilOXaCLkYUVdoe11KTYxZT4q Y3ujXOAzAWFhxbUrcYIdj6Jk KSRshDP0oKOwBH0GWoEJz70t IGFuZCBEcnVnIEFkbWluaXN0 wbR1sM5zTQeNSZRhBwx+IFRo SPRAFAGyBE7fjjWkh5TgvrIl zUexCVIrnEUmr5AcfIZqn9Qn kDcgn4OjbATfoPCjEP3uGGYx clxwYXIgVVRNQiBMYWJvcmF0 n2ZzPBZjQLTdBCU5nCynjbn6 MSPnbY5qOJQcP9rtzktwEEzz XRBqw3NhyT8gsRLSuLCnm0Rj dRWaaBVPuSOhHQ1uxyZmOHtX FBoEHOA6dwRyTCLud8ZyEVic G4noL15imRyuvLx5dCG9FPJ5 sW9uPog+IFxwYXJccGFyIEFw lOQiyOIkQSHffPiaorEbK7Eg aiUaqA4bdLVakoRpCZ8mQQ6n M4W3zGAvLZRarlXtf6ctYIqy dmUgYmVlbiByZXZpZXdlZCBm e7XxXWuwFDG5GAqzsdXulkOx dWRpbmcgSCZFLCBTcGVjaWFs WEJ8XJvtbfMbqeBdFG5mkY8r kUmqjM7oxPHkeTY5ipupNDKd KJNisLzkHLXiIN3koVTnSMSc yjWBpVocnQQjzG4pH3AoHSAc MNUwgn6lRQMklI5dQApmv5Pv nbciTLEdNHDgOVVbsuLifb8x EHVdxRFJIC4YOIiqtAZbi4Uc wqPfB5yCNWV9YDPoSoIfAbfz OCCvyQAivKSeTJYikd15JOZr oG6xiAjtOUXviK6ufW0giMtf bP3qQuZyEwIwFMwoKJ4yPINy E6tlbJFgPSVjWKDmN5qfQbPz xK0nmGnsAJrpKnLvJiXcMYbj YXJ9fQ== Embedded Images (test code = [id number]) [facility] [id number] 20:07:20 Test Item Value Reference Range Interpretation Comments SHIRA (test code = Negative Negative [id number]) LUCILLE (test code = LUCILLE) Negative - [...] separately. Lab Interpretation (test Normal code = 28947-5) [facility] (NA, K, CL, CO2, GLUCOSE, BUN, CREATININE, CA)2021-10-24 13:05:02 Test Item Value Reference Range Interpretation Comments NA (test code = 134 mmol/L 135-145 L [id number]) K (test code = 4.5 mmol/L 3.5-5.0 6336504986) CL (test code = 99 mmol/L 98-108 9729980897) CO2 TOTAL (test code = 30 mmol/L 23-31 9318487352) AGAP (test code = 2-16 8988801634) BUN (test code = 23 mg/dL 7-23 1322219005) GLUCOSE (test code = 118 mg/dL 70-110 H 9354342395) CREATININE (test code = 0.71 mg/dL 0.50-1.04 4946042674) CALCIUM (test code = 8.2 mg/dL 8.6-10.6 L 8651832705) eGFR (test code = mL/min/1.73m2 4134354910) LUCILLE (test code = LUCILLE) Association of [...] tests). Lab Interpretation Abnormal (test code = 96494-9) [facility] METABOLIC PANEL (NA, K, CL, CO2, GLUCOSE, BUN, CREATININE, CA)2021-10-24 13:05:02 Test Item Value Reference Range Interpretation Comments NA (test code = 134 mmol/L 135-145 L 7175895210) K (test code = 4.5 mmol/L 3.5-5.0 7859401229) CL (test code = 99 mmol/L 98-108 1377998451) CO2 TOTAL (test code = 30 mmol/L 23-31 2315183383) AGAP (test code = 2-16 9423409479) BUN (test code = 23 mg/dL 7-23 1044671216) GLUCOSE (test code = 118 mg/dL 70-110 H 6533334090) CREATININE (test code = 0.71 mg/dL 0.50-1.04 5270169364) CALCIUM (test code = 8.2 mg/dL 8.6-10.6 L 4847170291) eGFR (test code = mL/min/1.73m2 4484680833) LUCILLE (test code = LUCILLE) Association of [...] tests). Lab Interpretation Abnormal (test code = 82328-1) [facility] WITHOUT [id number] 12:51:39 Test Item Value Reference Range Interpretation Comments WBC (test code = 6690-2) See_Comment H [A utomated message] The system [employer] generated this result transmit britney reference range : 4.30 - 11.10 10*3/?L. The reference range was not used to interpret this result as normal/abnormal . RBC (test code = 789-8) See_Comment [Au tomated message] The system [employer] generated this result transmit britney reference range [...] See_Comment H [Au tomated message] The system [employer] generated this result transmit britney reference range : 166 - 358 10*3/?L. The reference range was not used to interpret this result as normal/abnormal . MPV (test code = 10.1 fL 9.5-12.9 47445-0) RDW-CV (test code = 14.2 % 12.0-15.5 788-0) RDW-SD (test code = 43.8 fL 39.0-49.9 49598-9) NRBC x10^3 (test code = See_Comment [Au tomated message] 6162239839) The system [employer] generated this result transmit britney reference range : 10*3/?L. The reference range was not used to interpret this result as normal/abnormal . NRBC/100 WBC (test code See_Comment [Au tomated message] = 1822360158) The system [facility] generated this result transmit britney reference range : 0.0 - 10.0 /100 WBC s. The reference r nicholas was not used to interpret this result as normal/abnormal . IPF % (test code = 2516391530) Lab Interpretation (test Abnormal code = 71476-7) [facility] WITHOUT [id number] 12:51:39 Test Item Value Reference Range Interpretation Comments WBC (test code = 6690-2) See_Comment H [A utomated message] The system [employer] generated this result transmit britney reference range : 4.30 - 11.10 10*3/?L. The reference range was not used to interpret this result as normal/abnormal . RBC (test code = 789-8) See_Comment [Au tomated message] The system [employer] generated this result transmit britney reference range [...] See_Comment H [Au tomated message] The system [employer] generated this result transmit britney reference range : 166 - 358 10*3/?L. The reference range was not used to interpret this result as normal/abnormal . MPV (test code = 10.1 fL 9.5-12.9 39781-6) RDW-CV (test code = 14.2 % 12.0-15.5 788-0) RDW-SD (test code = 43.8 fL 39.0-49.9 57319-2) NRBC x10^3 (test code = See_Comment [Au tomated message] 1943951402) The system [employer] h generated this result transmit britney reference range : 10*3/?L. The reference range was not used to interpret this result as normal/abnormal . NRBC/100 WBC (test code See_Comment [Au tomated message] = 5498789248) The system [employer] generated this result transmit britney reference range : 0.0 - 10.0 /100 WBC s. The reference r nicholas was not used to interpret this result as normal/abnormal . IPF % (test code = 6728559158) Lab Interpretation (test Abnormal code = 80877-4) [facility] TUBERCULOSIS COMPLEX PCR 2021-10-23 16:23:29 Test Item Value Reference Range Interpretation Comments Mycobacterium Negative Negative tuberculosis DNA (test code = 14737-9) LUCILLE (test code = LUCILLE) Method performance specifications have not been established for specimens other than SPUTUM. Results for other tested specimen types should be interpreted based on clinical context. Lab Interpretation Normal (test code = 47597-8) [facility] HospitalMY[facility]CT[facility] TUBERCULOSIS COMPLEX PCR 2021-10-23 16:23:29 Test Item Value Reference Range Interpretation Comments Mycobacterium Negative Negative tuberculosis DNA (test code = 57156-3) LUCILLE (test code = LUCILLE) Method performance specifications have not been established for specimens other than SPUTUM. Results for other tested specimen types should be interpreted based on clinical context. Lab Interpretation Normal (test code = 56858-7) [facility] HospitalRESPIRATORY PANEL BY [id number] 20:36:40 Test Item Value Reference Range Interpretation Comments Adenovirus (test code = Negative Negative 94864-4) Coronavirus HKU1 (test Negative Negative code = 49897-4) Coronavirus NL63 (test Negative Negative code = 59665-8) Coronavirus 229E (test Negative Negative code = 41441-7) Coronavirus OC43 (test Negative Negative code = 33151-3) Human Metapneumovirus Negative Negative (test code = 51309-3) Human Negative Negative Rhinovirus/Enterovirus (test code = 89781-4) Influenza A (test code = Negative Negative 98139-4) Influenza B (test code = Negative Negative 50514-4) Parainfluenza Virus 1 Negative Negative (test code = 98657-0) Parainfluenza Virus 2 Negative Negative (test code = 67443-3) Parainfluenza Virus 3 Negative Negative (test code = 08606-9) Parainfluenza Virus 4 Negative Negative (test code = 35986-6) Respiratory Syncytial Negative Negative Virus (test code = 89687-1) Bordetella parapertussis Negative Negative (test code = 96497-5) Bordetella pertussis Negative Negative (test code = 07863-7) Chlamydia pneumoniae Negative Negative (test code = 19248-5) Mycoplasma pneumoniae Negative Negative (test code = 44158-6) LUCILLE (test code = LUCILLE) Negative:A negative result does not rule-out infection. ?This assay does not test for all potential infectious agents. ? Positive:A positive test result does not necessarily indicate the presence of viable organism. ? Lab Interpretation (test Normal code = 96748-5) [facility] PANEL BY [id number] 20:36:40 Test Item Value Reference Range Interpretation Comments Adenovirus (test code = Negative Negative 03866-1) Coronavirus HKU1 (test Negative Negative code = 26428-0) Coronavirus NL63 (test Negative Negative code = 62557-1) Coronavirus 229E (test Negative Negative code = 77570-5) Coronavirus OC43 (test Negative Negative code = 24194-8) Human Metapneumovirus Negative Negative (test code = 51661-1) Human Negative Negative Rhinovirus/Enterovirus (test code = 52036-2) Influenza A (test code = Negative Negative 38276-5) Influenza B (test code = Negative Negative 87064-8) Parainfluenza Virus 1 Negative Negative (test code = 73404-5) Parainfluenza Virus 2 Negative Negative (test code = 10842-8) Parainfluenza Virus 3 Negative Negative (test code = 71227-7) Parainfluenza Virus 4 Negative Negative (test code = 86521-2) Respiratory Syncytial Negative Negative Virus (test code = 79030-1) Bordetella parapertussis Negative Negative (test code = 92291-6) Bordetella pertussis Negative Negative (test code = 86815-2) Chlamydia pneumoniae Negative Negative (test code = 26361-4) Mycoplasma pneumoniae Negative Negative (test code = 88858-1) LUCILLE (test code = LUCILLE) Negative:A negative result does not rule-out infection. ?This assay does not test for all potential infectious agents. ? Positive:A positive test result does not necessarily indicate the presence of viable organism. ? Lab Interpretation (test Normal code = 19527-1) [facility] HospitalANTI-NUCLEAR ANTIBODY-PATHOLOGIST [id number] 19:52:54ANA - Pathologist InterpretationANA HEp-2 IIFA Pathologist [...] female gender. Clinical correlation is recommended. ? (https://pubmed.ncbi.nlm.nih.gov/42951511/) ? If the patient's clinical cond ition [...] indicated. Juanis Mata MD ?10/22/2021 ?1:52 PM [facility] SERVICESUT [facility] HospitalANTI-NUCLEAR ANTIBODY- PATHOLOGIST [id number] 19:52:54ANA - Pathologist InterpretationANA HEp-2 IIFA Pathologist [...] female gender. Clinical correlation is recommended. ? (https://pubmed.ncbi.nlm.nih.gov/47226322/) ? If the patient's clinical cond ition [...] indicated. Juanis Mata MD ?10/22/2021 ?1:52 PM [facility] SERVICESSa[facility] WITH [id number] 11:43:17 Test Item Value Reference Range Interpretation Comments WBC (test code = See_Comment H [Automated 5390-2) message] The system which generated this result [...] RDW-SD (test code = 46.8 fL 39.0-49.9 44332-2) RDW-CV (test code = 14.6 % 12.0-15.5 788-0) PLT (test code = See_Comment H [Automated 777-3) message] The system which generated this result transmit britney reference range : 166 - 358 10*3/ ?L. The reference range was not u sed to interpret th is result as normal/abnormal . MPV (test code = 10.2 fL 9.5-12.9 29500-4) NRBC/100 WBC (test See_Comment [Automat ed code = 0081151757) message] The system which generated this result transmit britney reference range : 0.0 - 10.0 /100 WBCs. The reference range was not used to interpret this result as normal/abnormal . NRBC x10^3 (test code <0.01 See_Comment [Auto mated = 6774272737) message] The system which generated this result transmit britney reference range : 10*3/?L. The reference range was not used to interpret this result as normal/abnormal . GRAN MAT (NEUT) % 93.6 % (test code = 770-8) IMM GRAN % (test code 2.10 % = 4508079180) LYMPH % (test code = 2.8 % 736-9) MONO % (test code = 1.4 % 5905-5) EOS % (test code = 0.0 % 713-8) BASO % (test code = 0.1 % 706-2) GRAN MAT x10^3(ANC) 17.50 10*3/uL 1.88-7.09 H (test code = 2009247207) IMM GRAN x10^3 (test 0.40 10*3/uL 0.00-0.06 H code = 0423595866) LYMPH x10^3 (test code 0.53 10*3/uL 1.32-3.29 L = 731-0) MONO x10^3 (test code 0.26 10*3/uL 0.33-0.92 L = 742-7) EOS x10^3 (test code = <0.03 0.03-0.39 L 711-2) BASO x10^3 (test code <0.03 0.01-0.07 = 704-7) TOXIC CHANGES (test Present A code = 803-7) Lab Interpretation Abnormal (test code = 48132-5) [facility] WITH [id number] 11:43:17 Test Item Value Reference Range Interpretation Comments WBC (test code = See_Comment H [Automated 0390-2) message] The system which generated this result transmit britney reference range : 4.30 - 11.10 10*3/?L. The reference range was not used to interpret this result as normal/abnormal . RBC (test code = See_Comment [Automated 279-8) message] The system which generated this result [...] RDW-SD (test code = 46.8 fL 39.0-49.9 75716-2) RDW-CV (test code = 14.6 % 12.0-15.5 788-0) PLT (test code = See_Comment H [Automated 777-3) message] The system which generated this result transmit britney reference range : 166 - 358 10*3/ ?L. The reference range was not u sed to interpret th is result as normal/abnormal . MPV (test code = 10.2 fL 9.5-12.9 22432-0) NRBC/100 WBC (test See_Comment [Automat ed code = 7876139666) message] The system which generated this result transmit britney reference range : 0.0 - 10.0 /100 WBCs. The reference range was not used to interpret this result as normal/abnormal . NRBC x10^3 (test code <0.01 See_Comment [Auto mated = 2418280905) message] The system which generated this result transmit britney reference range : 10*3/?L. The reference range was not used to interpret this result as normal/abnormal . GRAN MAT (NEUT) % 93.6 % (test code = 770-8) IMM GRAN % (test code 2.10 % = 2148164682) LYMPH % (test code = 2.8 % 736-9) MONO % (test code = 1.4 % 5905-5) EOS % (test code = 0.0 % 713-8) BASO % (test code = 0.1 % 706-2) GRAN MAT x10^3(ANC) 17.50 10*3/uL 1.88-7.09 H (test code = 4878127465) IMM GRAN x10^3 (test 0.40 10*3/uL 0.00-0.06 H code = 2508502241) LYMPH x10^3 (test code 0.53 10*3/uL 1.32-3.29 L = 731-0) MONO x10^3 (test code 0.26 10*3/uL 0.33-0.92 L = 742-7) EOS x10^3 (test code = <0.03 0.03-0.39 L 711-2) BASO x10^3 (test code <0.03 0.01-0.07 = 704-7) TOXIC CHANGES (test Present A code = 803-7) Lab Interpretation Abnormal (test code = 02324-0) [facility] METABOLIC PANEL (NA, K, CL, CO2, GLUCOSE, BUN, CREATININE, CA)2021-10-22 11:20:32 Test Item Value Reference Range Interpretation Comments NA (test code = 136 mmol/L 135-145 7135579004) K (test code = 4.3 mmol/L 3.5-5.0 2537687600) CL (test code = 103 mmol/L 98-108 8991226897) CO2 TOTAL (test code = 26 mmol/L 23-31 0695263411) AGAP (test code = 2-16 0869382780) BUN (test code = 18 mg/dL 7-23 7913609589) GLUCOSE (test code = 185 mg/dL 70-110 H 2616195094) CREATININE (test code = 0.69 mg/dL 0.50-1.04 6434278464) CALCIUM (test code = 7.9 mg/dL 8.6-10.6 L 8953598130) eGFR (test code = mL/min/1.73m2 5590389689) LUCILLE (test code = LUCILLE) Association of [...] tests). Lab Interpretation Abnormal (test code = 88580-8) [facility] HospitalMAGNESIUM2022-02-19 11:20:32 Test Item Value Reference Range Interpretation Comments MAGNESIUM (test code = 1286760051) 2.2 mg/dL 1.7-2.4 Lab Interpretation (test code = Normal 32210-6) [facility] (NA, K, CL, CO2, GLUCOSE, BUN, CREATININE, CA)2021-10-22 11:20:32 Test Item Value Reference Range Interpretation Comments NA (test code = 136 mmol/L 135-145 1072560286) K (test code = 4.3 mmol/L 3.5-5.0 2204241756) CL (test code = 103 mmol/L 98-108 2192535007) CO2 TOTAL (test code = 26 mmol/L 23-31 6081226754) AGAP (test code = 2-16 1997749493) BUN (test code = 18 mg/dL 7-23 0511943070) GLUCOSE (test code = 185 mg/dL 70-110 H 0092217103) CREATININE (test code = 0.69 mg/dL 0.50-1.04 3657351916) CALCIUM (test code = 7.9 mg/dL 8.6-10.6 L 4078741221) eGFR (test code = mL/min/1.73m2 8078143935) LUCILLE (test code = LUCILLE) Association of [...] tests). Lab Interpretation Abnormal (test code = 89444-8) [facility]MAG[facility]2022-02-19 11:20:32 Test Item Value Reference Range Interpretation Comments MAGNESIUM (test code = 1779990999) 2.2 mg/dL 1.7-2.4 Lab Interpretation (test code = Normal 34368-8) [facility] HospitalBL[facility] C[facility] [id number] 23:01:06 Test Item Value Reference Range Interpretation Comments Blood Culture-Aerobic No organisms No growth Previo us (test code = 54521-5) isolated prelim inary verified result was Culture In Progress on 10/16/2021 at 20 02 CSTPrevious preliminary verified result was No growth a t 24 hours on 10/17/2021 at 17 01 CSTPrevious preliminary verified result was No growth a t 48 hours on 10/18/2021 at 17 01 CSTPrevious preliminary verified result was No growth a t 72 hours on 10/19/2021 at 17 02 SPOUT LINER Blood No organisms No growth Previous Culture-Anaerobic isolated preliminar y (test code = 97961-8) verifi ed result was Culture In Progress on 10/16/2021 at 20 02 CSTPrevious preliminary verified result was No growth a t 24 hours on 10/17/2021 at 17 01 CSTPrevious preliminary verified result was No growth a t 48 hours on 10/18/2021 at 17 01 CSTPrevious preliminary verified result was No growth a t 72 hours on 10/19/2021 at 17 02 SPOUT LINER Lab Interpretation Normal (test code = 15421-7) [facility] CULTURE [id number] 23:01:06 Test Item Value Reference Range Interpretation Comments Blood Culture-Aerobic No organisms No growth Previo us (test code = 41371-0) isolated prelim inary verified result was Culture In Progress on 10/16/2021 at 20 02 CSTPrevious preliminary verified result was No growth a t 24 hours on 10/17/2021 at 17 01 CSTPrevious preliminary verified result was No growth a t 48 hours on 10/18/2021 at 17 02 CSTPrevious preliminary verified result was No growth a t 72 hours on 10/19/2021 at 17 02 SPOUT LINER Blood No organisms No growth Previous Culture-Anaerobic isolated preliminar y (test code = 60258-1) verifi ed result was Culture In Progress on 10/16/2021 at 20 02 CSTPrevious preliminary verified result was No growth a t 24 hours on 10/17/2021 at 17 01 CSTPrevious preliminary verified result was No growth a t 48 hours on 10/18/2021 at 17 02 CSTPrevious preliminary verified result was No growth a t 72 hours on 10/19/2021 at 17 02 SPOUT [employer]ER Lab Interpretation Normal (test code = 89398-8) [facility] CULTURE [id number] 23:01:06 Test Item Value Reference Range Interpretation Comments Blood Culture-Aerobic No organisms No growth Previo us (test code = 81771-4) isolated prelim inary verified result was Culture In Progress on 10/16/2021 at 20 02 CSTPrevious preliminary verified result was No growth a t 24 hours on 10/17/2021 at 17 01 CSTPrevious preliminary verified result was No growth a t 48 hours on 10/18/2021 at 17 01 CSTPrevious preliminary verified result was No growth a t 72 hours on 10/19/2021 at 17 02 SPOUT LINER Blood No organisms No growth Previous Culture-Anaerobic isolated preliminar y (test code = 97327-3) verifi ed result was Culture In Progress on 10/16/2021 at 20 02 CSTPrevious preliminary verified result was No growth a t 24 hours on 10/17/2021 at 17 01 CSTPrevious preliminary verified result was No growth a t 48 hours on 10/18/2021 at 17 01 CSTPrevious preliminary verified result was No growth a t 72 hours on 10/19/2021 at 17 02 SPOUT [employer]ER Lab Interpretation Normal (test code = 71827-7) [facility] [id number] 23:01:06 Test Item Value Reference Range Interpretation Comments Blood Culture-Aerobic No organisms No growth Previo us (test code = 96358-8) isolated prelim inary verified result was Culture In Progress on 10/16/2021 at 20 02 CSTPrevious preliminary verified result was No growth a t 24 hours on 10/17/2021 at 17 01 CSTPrevious preliminary verified result was No growth a t 48 hours on 10/18/2021 at 17 02 CSTPrevious preliminary verified result was No growth a t 72 hours on 10/19/2021 at 17 02 SPOUT LINER Blood No organisms No growth Previous Culture-Anaerobic isolated preliminar y (test code = 80918-6) verifi ed result was Culture In Progress on 10/16/2021 at 20 02 CSTPrevious preliminary verified result was No growth a t 24 hours on 10/17/2021 at 17 01 CSTPrevious preliminary verified result was No growth a t 48 hours on 10/18/2021 at 17 02 CSTPrevious preliminary verified result was No growth a t 72 hours on 10/19/2021 at 17 02 SPOUT LINER Lab Interpretation Normal (test code = 53580-0) [facility] + LACTIC [id number] 20:42:21 Test Item Value Reference Range Interpretation Comments PH (test code = 2) 7.35-7.45 PCO2 (test code = See_Comment [Automat ed 4690635738) message] The sy stem which generated this result transmitted reference range : 35 - 45 mmHg. The reference range was not used to interpret this result as normal/abnormal . PO2 (test code = See_Comment H [Automated 9377362708) message] The sy stem which generated this result transmitted reference range : 80 - 100 mmHg. The reference range was not used to interpret this result as normal/abnormal . HCO3 (test code = See_Comment [Automate d 5579782641) message] The sy stem which generated this result transmitted reference range : 22 - 26 mEq/L. The reference range was not used to interpret this result as normal/abnormal . BE (test code = See_Comment [Automated 2394484028) message] The sy stem which generated this result transmitted reference range : -3.0 - 3.0 mEq/ L. The reference r nicholas was not used to interpret this result as normal/abnormal . THB (test code = 12.1 g/dL 12.0-16.0 0018080200) %O2HB (test code = 99.5 % 94.0-99.0 H 4746965578) %COHB ART (test code = 0.1 % 0.0-1.5 8201183780) %METHB ART (test code = 0.1 % 0.4-1.5 L 9685074881) VOL%O2 ART (test code = 17.8 % 15.0-23.0 9569936969) NA (test code = 135 mmol/L 135-145 2396178386) K+ (test code = 4.3 mmol/L 3.5-5.0 2684887400) AC CA IONZ (test code = 4.50 mg/dL 4.50-5.30 8245494219) GLUCOSE (test code = 108 mg/dL 70-110 3578682643) LACTIC ACID (test code 2.19 mmol/L 0.50-2.20 = 3182742077) Lab Interpretation Abnormal (test code = 96941-5) [facility] + LACTIC [id number] 20:42:21 Test Item Value Reference Range Interpretation Comments PH (test code = 2) 7.35-7.45 PCO2 (test code = See_Comment [Automat ed 0590127478) message] The sy stem which generated this result transmitted reference range : 35 - 45 mmHg. The reference range was not used to interpret this result as normal/abnormal . PO2 (test code = See_Comment H [Automated 9270629583) message] The sy stem which generated this result transmitted reference range : 80 - 100 mmHg. The reference range was not used to interpret this result as normal/abnormal . HCO3 (test code = See_Comment [Automate d 4339834707) message] The sy stem which generated this result transmitted reference range : 22 - 26 mEq/L. The reference range was not used to interpret this result as normal/abnormal . BE (test code = See_Comment [Automated 2039400635) message] The sy stem which generated this result transmitted reference range : -3.0 - 3.0 mEq/ L. The reference r nicholas was not used to interpret this result as normal/abnormal . THB (test code = 12.1 g/dL 12.0-16.0 4702648431) %O2HB (test code = 99.5 % 94.0-99.0 H 5473533744) %COHB ART (test code = 0.1 % 0.0-1.5 0800497543) %METHB ART (test code = 0.1 % 0.4-1.5 L 6812997470) VOL%O2 ART (test code = 17.8 % 15.0-23.0 2094348249) NA (test code = 135 mmol/L 135-145 6216850899) K+ (test code = 4.3 mmol/L 3.5-5.0 4456121685) AC CA IONZ (test code = 4.50 mg/dL 4.50-5.30 4047551309) GLUCOSE (test code = 108 mg/dL 70-110 9408565445) LACTIC ACID (test code 2.19 mmol/L 0.50-2.20 = 3516489831) Lab Interpretation Abnormal (test code = 14944-4) [facility] HospitalANGIOTENSIN CONVERTING [id number] 20:19:53 Test Item Value Reference Range Interpretation Comments MELLY (test code = 28 U/L 9-67 Performed B y: [facility] 2742-5) [address] [id number] Director: Korin Barillas MD [facility] HospitalANGIOTENSIN CONVERTING [id number] 20:19:53 Test Item Value Reference Range Interpretation Comments MELLY (test code = 28 U/L 9-67 Performed B y: [facility] 2742-5) [address] [id number] Director: Korin Barillas MD [facility] HospitalBODY FLUID MANUAL [id number] 19:44:45 Test Item Value Reference Range Interpretation Comments BF SEGS% (test code = 96524-8) 2 % BF LYMPHS% (test code = 17144-3) 12 % BF MACROPHAGE% (test code = 10323-3) 86 % BF #CELLS CNTD (test code = 7247198817) cells/uL [facility] HospitalBODY FLUID MANUAL [id number] 19:44:45 Test Item Value Reference Range Interpretation Comments BF SEGS% (test code = 44910-9) 2 % BF LYMPHS% (test code = 09393-8) 12 % BF MACROPHAGE% (test code = 45162-8) 86 % BF #CELLS CNTD (test code = 3759572965) cells/uL [facility] FLUID DIRECT [id number] 19:44:30 Test Item Value Reference Range Interpretation Comments BF COLOR Clear (test code = 3009909934) BF WBC Count See_Comment [Automated (test code = message] The sy stem 2166184060) which generated this result transmitted reference range : /?L. The refere nce range was not u sed to interpret th is result as normal/abnormal . BF RBC Count <3000 See_Comment [Automated (test code = message] The sy stem [id number]) which generated this result transmitted reference range : /?L. The refere nce range was not u sed to interpret th is result as normal/abnormal . LUCILLE (test The reference range code = LUCILLE) and other method performance specifications have not been established for this body fluid. ?The test results must be integrated into the clinical context for interpretation. [facility] [id number] 19:44:30 Test Item Value Reference Range Interpretation Comments BF COLOR Clear (test code = 2362911618) BF WBC Count See_Comment [Automated (test code = message] The sy stem [id number]) which generated this result transmitted reference range : /?L. The refere nce range was not u sed to interpret th is result as normal/abnormal . BF RBC Count <3000 See_Comment [Automated (test code = message] The sy stem [id number]) which generated this result transmitted reference range : /?L. The refere nce range was not u sed to interpret th is result as normal/abnormal . LUCILLE (test The reference range code = LUCILLE) and other method performance specifications have not been established for this body fluid. ?The test results must be integrated into the clinical context for interpretation. [facility] WITH [id number] 19:27:30 Test Item Value Reference Range Interpretation [...] RDW-SD (test code = 45.8 fL 39.0-49.9 36206-4) RDW-CV (test code = 14.4 % 12.0-15.5 788-0) PLT (test code = See_Comment H [Automated 777-3) message] The system which generated this result transmit britney reference range : 166 - 358 10*3/ ?L. The reference range was not u sed to interpret th is result as normal/abnormal . MPV (test code = 10.4 fL 9.5-12.9 04611-1) NRBC/100 WBC (test See_Comment [Automat ed code = 9767328795) message] The system which generated this result transmit britney reference range : 0.0 - 10.0 /100 WBCs. The reference range was not used to interpret this result as normal/abnormal . NRBC x10^3 (test code See_Comment [Auto mated = 7481624306) message] The system which generated this result transmit britney reference range : 10*3/?L. The reference range was not used to interpret this result as normal/abnormal . SEG % (test code = 84 % 33-76 H 97574-3) BAND % (test code = 8 % 0-1 H 66599-2) MYELO % (test code = 2 % See_Comment H [Autom ated 79394-5) message] The system which generated this result transmit britney reference range : <=0. The refere nce range was not u sed to interpret th is result as normal/abnormal . LYMPH % (test code = 4 % 14-54 L 94840-8) MONO % (test code = 2 % 0-4 27815-8) ANC (test code = 21.16 10*3/uL 1.88-7.09 H 753-4) Lab Interpretation Abnormal (test code = 89037-0) [facility] WITH [id number] 19:27:30 Test Item Value Reference Range Interpretation [...] RDW-SD (test code = 45.8 fL 39.0-49.9 21485-2) RDW-CV (test code = 14.4 % 12.0-15.5 788-0) PLT (test code = See_Comment H [Automated 777-3) message] The system which generated this result transmit britney reference range : 166 - 358 10*3/ ?L. The reference range was not u sed to interpret th is result as normal/abnormal . MPV (test code = 10.4 fL 9.5-12.9 69416-0) NRBC/100 WBC (test See_Comment [Automat ed code = 8563129682) message] The system which generated this result transmit britney reference range : 0.0 - 10.0 /100 WBCs. The reference range was not used to interpret this result as normal/abnormal . NRBC x10^3 (test code See_Comment [Auto mated = 1868626828) message] The system which generated this result transmit britney reference range : 10*3/?L. The reference range was not used to interpret this result as normal/abnormal . SEG % (test code = 84 % 33-76 H 64084-8) BAND % (test code = 8 % 0-1 H 56112-3) MYELO % (test code = 2 % See_Comment H [Autom ated 54355-8) message] The system which generated this result transmit britney reference range : <=0. The refere nce range was not u sed to interpret th is result as normal/abnormal . LYMPH % (test code = 4 % 14-54 L 09827-9) MONO % (test code = 2 % 0-4 61670-0) ANC (test code = 21.16 10*3/uL 1.88-7.09 H 753-4) Lab Interpretation Abnormal (test code = 80322-6) [facility] METABOLIC PANEL (NA, K, CL, CO2, GLUCOSE, BUN, CREATININE, CA)2021-10-21 19:20:26 Test Item Value Reference Range Interpretation Comments NA (test code = 125 mmol/L 135-145 L 4911320119) K (test code = 4.4 mmol/L 3.5-5.0 Slight 8534589188) hemolysis CL (test code = 98 mmol/L 98-108 6846080590) CO2 TOTAL (test code 19 mmol/L 23-31 L = 2873272697) AGAP (test code = 2-16 2770509939) BUN (test code = 21 mg/dL 7-23 Slight 9547055032) hemolysis GLUCOSE (test code = 155 mg/dL 70-110 H 0371468480) CREATININE (test code 0.63 mg/dL 0.50-1.04 = 5500031867) CALCIUM (test code = 6.9 mg/dL 8.6-10.6 L 7422831518) eGFR (test code = mL/min/1.73m2 6321704798) LUCILLE (test code = LUCILLE) Association of [...] tests). Lab Interpretation Abnormal (test code = 85149-9) [facility] (NA, K, CL, CO2, GLUCOSE, BUN, CREATININE, CA)2021-10-21 19:20:26 Test Item Value Reference Range Interpretation Comments NA (test code = 125 mmol/L 135-145 L 9977972929) K (test code = 4.4 mmol/L 3.5-5.0 Slight 1250477325) hemolysis CL (test code = 98 mmol/L 98-108 2377869537) CO2 TOTAL (test code 19 mmol/L 23-31 L = 9138392941) AGAP (test code = 2-16 6440876048) BUN (test code = 21 mg/dL 7-23 Slight 3706062988) hemolysis GLUCOSE (test code = 155 mg/dL 70-110 H 1792287460) CREATININE (test code 0.63 mg/dL 0.50-1.04 = 3110819414) CALCIUM (test code = 6.9 mg/dL 8.6-10.6 L 7212822160) eGFR (test code = mL/min/1.73m2 7843670443) LUCILLE (test code = LUCILLE) Association of [...] tests). Lab Interpretation Abnormal (test code = 74930-2) [facility] Test Item Value Reference Range Interpretation Comments Fibrinogen (test code = 5976591397) 585 mg/dL 167-453 H Lab Interpretation (test code = Abnormal 48211-0) [facility] / [id number] 19:12:03 Test Item Value Reference Range Interpretation Comments PROTIME PATIENT (test See_Comment H [Auto mated message] code = 5964-2) The system [employer] generated this result transmitted ref erence range: 10.1 - 1 2.6 Seconds. The reference range was not used to int erpret this result as normal/abnormal . INR (test code = 6301-6) Nor mal INR <1.1; Warfarin Therap eutic range 2.0 to 3. 0 or 2.5 to 3.5, dep ending upon the indica tions. Lab Interpretation (test Abnormal code = 29710-8) [facility] 19:12:03 Test Item Value Reference Range Interpretation Comments Fibrinogen (test code = 5951990435) 585 mg/dL 167-453 H Lab Interpretation (test code = Abnormal 60649-3) [facility] / [id number] 19:12:03 Test Item Value Reference Range Interpretation Comments PROTIME PATIENT (test See_Comment H [Auto mated message] code = 5964-2) The system [employer] generated this result transmitted ref erence range: 10.1 - 1 2.6 Seconds. The reference range was not used to int erpret this result as normal/abnormal . INR (test code = 6301-6) Nor mal INR <1.1; Warfarin Therap eutic range 2.0 to 3. 0 or 2.5 to 3.5, dep ending upon the indica tions. Lab Interpretation (test Abnormal code = 02482-5) [facility] [id number] 04:54:18 Test Item Value Reference Range Interpretation Comments URIC ACID (test code = 7827217034) 4.3 mg/dL 2.9-6.0 Lab Interpretation (test code = Normal 87713-0) [facility] [id number] 04:54:18 Test Item Value Reference Range Interpretation Comments URIC ACID (test code = 0851110303) 4.3 mg/dL 2.9-6.0 Lab Interpretation (test code = Normal 87402-1) [facility] (TTE)2021-10-20 20:54:06 Test Item Value Reference Range Interpretation Comments EF(Teich) (test code = 63.80 % 2575408901) LVIDD (test code = 4.40 cm 6896863715) LVIDS (test code = 2.90 cm 4002111527) IVS (test code = 0.86 cm 5752907149) LVPWD (test code = 0.86 cm 6040724323) LVOT diameter (test code 2.00 cm = 1776232155) FS (test code = 35 % 8512711183) LA size (test code = 3.4 cm 8322004175) LAV(MOD-sp4) (test code = 41.40 mL 6152008701) Ao root annulus (test 2.44 cm code = 9967325288) Ao root diam (test code = 2.44 cm 3587675336) Aortic root (test code = 2.44 cm 9932140337) PW (test code = 0.86 cm 0.6-1.9 7078018550) EF - 2D (test code = 63.80 % 19417762) Interventricular Septum 0.86 cm Diastolic Thickness by 2D (test code = 8754780) Radiology Study observation (narrative) (test code = 67942-6) LUCILLE (test code = LUCILLE) ?Left?Ventricle: Left ventricle is normal in size and function. Normal wall thickness. Normal systolic function with a visually estimated EF of 55 - 60%. ?Aortic?Valve: Aortic valve is normal in structure and function. ?Mitral?Valve: Mitral valve is normal in structure and function. VitalsHeight Weight BSA (Calculated - sq m) BP Pulse 60 220lb ? ?114/63 81 [facility]2021-10-20 20:54:06 Test Item Value Reference Range Interpretation Comments EF(Teich) (test code = 63.80 % 2497722782) LVIDD (test code = 4.40 cm 0334658181) LVIDS (test code = 2.90 cm 7717917905) IVS (test code = 0.86 cm 4269347806) LVPWD (test code = 0.86 cm 8653778194) LVOT diameter (test code 2.00 cm = 3343438380) FS (test code = 35 % 8158085578) LA size (test code = 3.4 cm 7456946642) LAV(MOD-sp4) (test code = 41.40 mL 9925303023) Ao root annulus (test 2.44 cm code = 8112378681) Ao root diam (test code = 2.44 cm 5200064503) Aortic root (test code = 2.44 cm 8828272835) PW (test code = 0.86 cm 0.6-1.7 1779439954) EF - 2D (test code = 63.80 % 69362087) Interventricular Septum 0.86 cm Diastolic Thickness by 2D (test code = 2720160) Radiology Study observation (narrative) (test code = 39476-8) LUCILLE (test code = LUCILLE) ?Left?Ventricle: Left ventricle is normal in size and function. Normal wall thickness. Normal systolic function with a visually estimated EF of 55 - 60%. ?Aortic?Valve: Aortic valve is normal in structure and function. ?Mitral?Valve: Mitral valve is normal in structure and function. VitalsHeight Weight BSA (Calculated - sq m) BP Pulse 60 220lb ? ?114/63 81 [facility] WITH [id number] 11:09:20 Test Item Value Reference Range Interpretation Comments WBC (test code = See_Comment H [Automated 3077-2) message] The system which generated this result transmit britney reference range : 4.30 - 11.10 10*3/?L. The reference range was not used to interpret this result as normal/abnormal . RBC (test code = See_Comment L [Automated 089-8) message] The system which generated this result [...] RDW-SD (test code = 46.3 fL 39.0-49.9 33547-9) RDW-CV (test code = 14.5 % 12.0-15.5 788-0) PLT (test code = See_Comment [Automated 777-3) message] The system which generated this result transmit britney reference range : 166 - 358 10*3/ ?L. The reference range was not u sed to interpret th is result as normal/abnormal . MPV (test code = 9.9 fL 9.5-12.9 91759-6) NRBC/100 WBC (test See_Comment [Automat ed code = 6220081300) message] The system which generated this result transmit britney reference range : 0.0 - 10.0 /100 WBCs. The reference range was not used to interpret this result as normal/abnormal . NRBC x10^3 (test code <0.01 See_Comment [Auto mated = 3643933903) message] The system which generated this result transmit britney reference range : 10*3/?L. The reference range was not used to interpret this result as normal/abnormal . GRAN MAT (NEUT) % 89.9 % (test code = 770-8) IMM GRAN % (test code 2.90 % = 9031833465) LYMPH % (test code = 4.2 % 736-9) MONO % (test code = 2.9 % 5905-5) EOS % (test code = 0.0 % 713-8) BASO % (test code = 0.1 % 706-2) GRAN MAT x10^3(ANC) 14.51 10*3/uL 1.88-7.09 H (test code = 5269645256) IMM GRAN x10^3 (test 0.46 10*3/uL 0.00-0.06 H code = 2898318165) LYMPH x10^3 (test code 0.67 10*3/uL 1.32-3.29 L = 731-0) MONO x10^3 (test code 0.47 10*3/uL 0.33-0.92 = 742-7) EOS x10^3 (test code = <0.03 0.03-0.39 L 711-2) BASO x10^3 (test code <0.03 0.01-0.07 = 704-7) TOXIC CHANGES (test Present A code = 803-7) Lab Interpretation Abnormal (test code = 31327-1) [facility] WITH [id number] 11:09:20 Test Item Value Reference Range Interpretation Comments WBC (test code = See_Comment H [Automated 8490-2) message] The system which generated this result [...] RDW-SD (test code = 46.3 fL 39.0-49.9 64540-2) RDW-CV (test code = 14.5 % 12.0-15.5 788-0) PLT (test code = See_Comment [Automated 777-3) message] The system which generated this result transmit britney reference range : 166 - 358 10*3/ ?L. The reference range was not u sed to interpret th is result as normal/abnormal . MPV (test code = 9.9 fL 9.5-12.9 03575-0) NRBC/100 WBC (test See_Comment [Automat ed code = 9119113800) message] The system which generated this result transmit britney reference range : 0.0 - 10.0 /100 WBCs. The reference range was not used to interpret this result as normal/abnormal . NRBC x10^3 (test code <0.01 See_Comment [Auto mated = 6417904828) message] The system which generated this result transmit britney reference range : 10*3/?L. The reference range was not used to interpret this result as normal/abnormal . GRAN MAT (NEUT) % 89.9 % (test code = 770-8) IMM GRAN % (test code 2.90 % = 2371459299) LYMPH % (test code = 4.2 % 736-9) MONO % (test code = 2.9 % 5905-5) EOS % (test code = 0.0 % 713-8) BASO % (test code = 0.1 % 706-2) GRAN MAT x10^3(ANC) 14.51 10*3/uL 1.88-7.09 H (test code = 5516199437) IMM GRAN x10^3 (test 0.46 10*3/uL 0.00-0.06 H code = 2870867280) LYMPH x10^3 (test code 0.67 10*3/uL 1.32-3.29 L = 731-0) MONO x10^3 (test code 0.47 10*3/uL 0.33-0.92 = 742-7) EOS x10^3 (test code = <0.03 0.03-0.39 L 711-2) BASO x10^3 (test code <0.03 0.01-0.07 = 704-7) TOXIC CHANGES (test Present A code = 803-7) Lab Interpretation Abnormal (test code = 18882-7) [facility] METABOLIC PANEL (NA, K, CL, CO2, GLUCOSE, BUN, CREATININE, CA)2021-10-20 10:55:22 Test Item Value Reference Range Interpretation Comments NA (test code = 136 mmol/L 135-145 9989876514) K (test code = 4.1 mmol/L 3.5-5.0 2220024001) CL (test code = 108 mmol/L 98-108 4266613845) CO2 TOTAL (test code = 25 mmol/L 23-31 3195390816) AGAP (test code = 2-16 2944974940) BUN (test code = 23 mg/dL 7-23 4992588356) GLUCOSE (test code = 134 mg/dL 70-110 H 3034716807) CREATININE (test code = 0.67 mg/dL 0.50-1.04 7038748463) CALCIUM (test code = 7.5 mg/dL 8.6-10.6 L 5709825877) eGFR (test code = mL/min/1.73m2 5764553058) LUCILLE (test code = LUCILLE) Association of [...] tests). Lab Interpretation Abnormal (test code = 04726-5) [facility] METABOLIC PANEL (NA, K, CL, CO2, GLUCOSE, BUN, CREATININE, CA)2021-10-20 10:55:22 Test Item Value Reference Range Interpretation Comments NA (test code = 136 mmol/L 135-145 7486487924) K (test code = 4.1 mmol/L 3.5-5.0 9779768628) CL (test code = 108 mmol/L 98-108 6954749746) CO2 TOTAL (test code = 25 mmol/L 23-31 4781605758) AGAP (test code = 2-16 9575855452) BUN (test code = 23 mg/dL 7-23 6586505091) GLUCOSE (test code = 134 mg/dL 70-110 H 4939989938) CREATININE (test code = 0.67 mg/dL 0.50-1.04 4832147074) CALCIUM (test code = 7.5 mg/dL 8.6-10.6 L 7172518547) eGFR (test code = mL/min/1.73m2 5842489202) LUCILLE (test code = LUCILLE) Association of [...] tests). Lab Interpretation Abnormal (test code = 49281-4) [facility] [id number] 21:49:45 Test Item Value Reference Range Interpretation Comments ANTI-DSDNA (test code See_Comment [Auto mated = 7500771620) message] The system which generated this result transmit britney reference range : 0.0 - 4.0 IU/mL . The reference range was not u sed to interpret th is result as normal/abnormal . LUCILLE (test code = LUCILLE) Negative ? ?< or = 4 IU/mLPositive ? ? ?> or = 10 IU/mLIndetermin ate ?5-9 IU/mL Lab Interpretation Normal (test code = 91049-0) [facility] [id number] 21:49:45 Test Item Value Reference Range Interpretation Comments ANTI-DSDNA (test code See_Comment [Auto mated = 8640652691) message] The system which generated this result transmit britney reference range : 0.0 - 4.0 IU/mL . The reference range was not u sed to interpret th is result as normal/abnormal . LUCILLE (test code = LUCILLE) Negative ? ?< or = 4 IU/mLPositive ? ? ?> or = 10 IU/mLIndetermin ate ?5-9 IU/mL Lab Interpretation Normal (test code = 65499-4) [facility] 21:43:06 Test Item Value Reference Range Interpretation Comments RF (test code = <20 See_Comment [Automated message] 8394079442) The system [employer] generated this result transmitted ref erence range: <20 IU/m L. The reference range was not used to int erpret this result as normal/abnormal . Lab Interpretation (test Normal code = 13500-1) [facility]2022-02-16 21:43:06 Test Item Value Reference Range Interpretation Comments RF (test code = <20 See_Comment [Automated message] 4813616778) The system [employer] h generated this result transmitted ref erence range: <20 IU/m L. The reference range was not used to int erpret this result as normal/abnormal . Lab Interpretation (test Normal code = 98594-0) [facility] [id number] 20:22:55 Test Item Value Reference Range Interpretation Comments SHIRA Titer by IFA <=1:80 (test code = 4363299644) SHIRA Pattern (test SHIRA screen was positive code = 6634828377) at the 1:80 dilution but with low [...] specimen will be held for 7 days. [facility] [id number] 20:22:55 Test Item Value Reference Range Interpretation Comments SHIRA Titer by IFA <=1:80 (test code = 0195077482) SHIRA Pattern (test SHIRA screen was positive code = 2964914859) at the 1:80 dilution but with low [...] specimen will be held for 7 days. [facility] HospitalANCA [id number] 18:12:04 Test Item Value Reference Range Interpretation Comments Myeloperoxidase (MPO) Negative Negative Antibodies, IgG Interpretation (test code = 72921-1) Proteinase 3 (PR3) Negative Negative Antibodies, IgG Interpretation (test code = 24241-4) Myeloperoxidase (MPO) <0.3 See_Comment [Auto mated Antibodies, IgG (test messag e] The code = 5812121367) system [facility] generated this result transmitted reference range : <=3.5 U/mL. The reference range was not used to interpret this result as normal/abnormal . Proteinase 3 (PR3) <0.7 See_Comment [Automat ed Antibodies, IgG (test messag e] The code = 3425313130) system [facility] generated this result transmitted reference range [...] weeks. Lab Interpretation Normal (test code = 56589-0) [facility] [id number] 18:12:04 Test Item Value Reference Range Interpretation Comments Myeloperoxidase (MPO) Negative Negative Antibodies, IgG Interpretation (test code = 78791-3) Proteinase 3 (PR3) Negative Negative Antibodies, IgG Interpretation (test code = 28218-0) Myeloperoxidase (MPO) <0.3 See_Comment [Auto mated Antibodies, IgG (test messag e] The code = 7226131105) system [facility] generated this result transmitted reference range : <=3.5 U/mL. The reference range was not used to interpret this result as normal/abnormal . Proteinase 3 (PR3) <0.7 See_Comment [Automat ed Antibodies, IgG (test messag e] The code = 5907955069) system [facility] generated this result transmitted reference range [...] weeks. Lab Interpretation Normal (test code = 78730-6) [facility] Test Item Value Reference Range Interpretation Comments MAGNESIUM (test code = 1486475219) 2.9 mg/dL 1.7-2.4 H Lab Interpretation (test code = Abnormal 83877-1) [facility] 10:47[facility]40 Test Item Value Reference Range Interpretation Comments MAGNESIUM (test code = 5280852642) 2.9 mg/dL 1.7-2.4 H Lab Interpretation (test code = Abnormal 47409-9) [facility] WITH [id number] 09:31:49 Test Item Value Reference Range Interpretation Comments WBC (test code = See_Comment H [Automated 5690-2) message] The system which generated this result [...] RDW-SD (test code = 45.5 fL 39.0-49.9 96617-5) RDW-CV (test code = 14.4 % 12.0-15.5 788-0) PLT (test code = See_Comment [Automated 777-3) message] The system which generated this result transmit britney reference range : 166 - 358 10*3/ ?L. The reference range was not u sed to interpret th is result as normal/abnormal . MPV (test code = 10.0 fL 9.5-12.9 71625-0) NRBC/100 WBC (test See_Comment [Automat ed code = 0818533050) message] The system which generated this result transmit britney reference range : 0.0 - 10.0 /100 WBCs. The reference range was not used to interpret this result as normal/abnormal . NRBC x10^3 (test code <0.01 See_Comment [Auto mated = 9711147168) message] The system which generated this result transmit britney reference range : 10*3/?L. The reference range was not used to interpret this result as normal/abnormal . GRAN MAT (NEUT) % 93.4 % (test code = 770-8) IMM GRAN % (test code 1.50 % = 4707148846) LYMPH % (test code = 2.4 % 736-9) MONO % (test code = 2.6 % 5905-5) EOS % (test code = 0.0 % 713-8) BASO % (test code = 0.1 % 706-2) GRAN MAT x10^3(ANC) 17.74 10*3/uL 1.88-7.09 H (test code = 6920171929) IMM GRAN x10^3 (test 0.28 10*3/uL 0.00-0.06 H code = 4754064182) LYMPH x10^3 (test code 0.46 10*3/uL 1.32-3.29 L = 731-0) MONO x10^3 (test code 0.50 10*3/uL 0.33-0.92 = 742-7) EOS x10^3 (test code = <0.03 0.03-0.39 L 711-2) BASO x10^3 (test code <0.03 0.01-0.07 = 704-7) TOXIC CHANGES (test Present A code = 803-7) Lab Interpretation Abnormal (test code = 27305-7) [facility] WITH [id number] 09:31:49 Test Item Value Reference Range Interpretation [...] RDW-SD (test code = 45.5 fL 39.0-49.9 50917-2) RDW-CV (test code = 14.4 % 12.0-15.5 788-0) PLT (test code = See_Comment [Automated 777-3) message] The system which generated this result transmit britney reference range : 166 - 358 10*3/ ?L. The reference range was not u sed to interpret th is result as normal/abnormal . MPV (test code = 10.0 fL 9.5-12.9 98792-0) NRBC/100 WBC (test See_Comment [Automat ed code = 2528718504) message] The system which generated this result transmit britney reference range : 0.0 - 10.0 /100 WBCs. The reference range was not used to interpret this result as normal/abnormal . NRBC x10^3 (test code <0.01 See_Comment [Auto mated = 3648451273) message] The system which generated this result transmit britney reference range : 10*3/?L. The reference range was not used to interpret this result as normal/abnormal . GRAN MAT (NEUT) % 93.4 % (test code = 770-8) IMM GRAN % (test code 1.50 % = 1763845889) LYMPH % (test code = 2.4 % 736-9) MONO % (test code = 2.6 % 5905-5) EOS % (test code = 0.0 % 713-8) BASO % (test code = 0.1 % 706-2) GRAN MAT x10^3(ANC) 17.74 10*3/uL 1.88-7.09 H (test code = 4337273238) IMM GRAN x10^3 (test 0.28 10*3/uL 0.00-0.06 H code = 3013586314) LYMPH x10^3 (test code 0.46 10*3/uL 1.32-3.29 L = 731-0) MONO x10^3 (test code 0.50 10*3/uL 0.33-0.92 = 742-7) EOS x10^3 (test code = <0.03 0.03-0.39 L 711-2) BASO x10^3 (test code <0.03 0.01-0.07 = 704-7) TOXIC CHANGES (test Present A code = 803-7) Lab Interpretation Abnormal (test code = 58709-9) [facility] (NA, K, CL, CO2, GLUCOSE, BUN, CREATININE, CA)2021-10-19 09:25:48 Test Item Value Reference Range Interpretation Comments NA (test code = 144 mmol/L 135-145 5865072433) K (test code = 4.5 mmol/L 3.5-5.0 1804117192) CL (test code = 111 mmol/L 98-108 H 9662716920) CO2 TOTAL (test code = 27 mmol/L 23-31 4078727606) AGAP (test code = 2-16 3487208555) BUN (test code = 30 mg/dL 7-23 H 7583183207) GLUCOSE (test code = 159 mg/dL 70-110 H 5614677460) CREATININE (test code = 0.81 mg/dL 0.50-1.04 4271687140) CALCIUM (test code = 8.2 mg/dL 8.6-10.6 L 2201162770) eGFR (test code = mL/min/1.73m2 8695942054) LUCILLE (test code = LUCILLE) Association of [...] tests). Lab Interpretation Abnormal (test code = 28487-4) [facility] (NA, K, CL, CO2, GLUCOSE, BUN, CREATININE, CA)2021-10-19 09:25:48 Test Item Value Reference Range Interpretation Comments NA (test code = 144 mmol/L 135-145 8044954102) K (test code = 4.5 mmol/L 3.5-5.0 3807103642) CL (test code = 111 mmol/L 98-108 H 7928214962) CO2 TOTAL (test code = 27 mmol/L 23-31 2080881961) AGAP (test code = 2-16 5825177828) BUN (test code = 30 mg/dL 7-23 H 2611854125) GLUCOSE (test code = 159 mg/dL 70-110 H 8082971522) CREATININE (test code = 0.81 mg/dL 0.50-1.04 1876512965) CALCIUM (test code = 8.2 mg/dL 8.6-10.6 L 7279465727) eGFR (test code = mL/min/1.73m2 9666155902) LUCILLE (test code = LUCILLE) Association of [...] tests). Lab Interpretation Abnormal (test code = 08242-6) [facility] GLUCOSE (AUTOMATED)2021-10-19 02:29:39 Test Item Value Reference Range Interpretation Comments POCT GLU (test code = 2477077489) 159 mg/dL 70-110 H Lab Interpretation (test code = Abnormal 92173-9) [facility] GLUCOSE (AUTOMATED)2021-10-19 02:29:39 Test Item Value Reference Range Interpretation Comments POCT GLU (test code = 7532928138) 159 mg/dL 70-110 H Lab Interpretation (test code = Abnormal 72582-9) [facility] [id number] 22:06:05 Test Item Value Reference Range Interpretation Comments SHIRA (test code = Positive Negative A 6336688320) LUCILLE (test code = LUCILLE) Negative - No Anti-Nuclear Antibodies detected by IFA.Positive - SHIRA IFA screen performed with a 1:80 dilution in adults and a 1:40 dilution in pediatrics. Any SHIRA "Positive" will have titer performed and reported separately. Lab Interpretation (test Abnormal code = 29520-6) [facility] [id number] 22:06:05 Test Item Value Reference Range Interpretation Comments SHIRA (test code = Positive Negative A 9524810440) LUCILLE (test code = LUCILLE) Negative - No Anti-Nuclear Antibodies detected by IFA.Positive - SHIRA IFA screen performed with a 1:80 dilution in adults and a 1:40 dilution in pediatrics. Any SHIRA "Positive" will have titer performed and reported separately. Lab Interpretation (test Abnormal code = 93925-7) [facility]GLOBIN (A1C)2021-10-18 17:16:16 Test Item Value Reference Range Interpretation Comments HGB A1C (test code = 6.0 % 4.0-5.7 H 4548-4) LUCILLE (test code = LUCILLE) Reference RangesNormal: <5.7%Prediabetes: 5.7 - 6.4%Diabetes: > 6.5% Lab Interpretation (test Abnormal code = 27371-5) [facility] (A1C)2021-10-18 17:16:16 Test Item Value Reference Range Interpretation Comments HGB A1C (test code = 6.0 % 4.0-5.7 H 4548-4) LUCILLE (test code = LUCILLE) Reference RangesNormal: <5.7%Prediabetes: 5.7 - 6.4%Diabetes: > 6.5% Lab Interpretation (test Abnormal code = 98473-7) [facility] HospitalCBC WITH [id number] 10:21:29 Test Item Value Reference Range Interpretation [...] RDW-SD (test code = 44.0 fL 39.0-49.9 43300-5) RDW-CV (test code = 14.1 % 12.0-15.5 788-0) PLT (test code = See_Comment [Automated 777-3) message] The system which generated this result transmit britney reference range : 166 - 358 10*3/ ?L. The reference range was not u sed to interpret th is result as normal/abnormal . MPV (test code = 10.5 fL 9.5-12.9 29258-4) NRBC/100 WBC (test See_Comment [Automat ed code = 0080259989) message] The system which generated this result transmit britney reference range : 0.0 - 10.0 /100 WBCs. The reference range was not used to interpret this result as normal/abnormal . NRBC x10^3 (test code <0.01 See_Comment [Auto mated = 1199235657) message] The system which generated this result transmit britney reference range : 10*3/?L. The reference range was not used to interpret this result as normal/abnormal . GRAN MAT (NEUT) % 94.3 % (test code = 770-8) IMM GRAN % (test code 1.00 % = 9305120657) LYMPH % (test code = 2.1 % 736-9) MONO % (test code = 2.5 % 5905-5) EOS % (test code = 0.0 % 713-8) BASO % (test code = 0.1 % 706-2) GRAN MAT x10^3(ANC) 18.69 10*3/uL 1.88-7.09 H (test code = 6223940616) IMM GRAN x10^3 (test 0.20 10*3/uL 0.00-0.06 H code = 3852980480) LYMPH x10^3 (test code 0.42 10*3/uL 1.32-3.29 L = 731-0) MONO x10^3 (test code 0.50 10*3/uL 0.33-0.92 = 742-7) EOS x10^3 (test code = <0.03 0.03-0.39 L 711-2) BASO x10^3 (test code <0.03 0.01-0.07 = 704-7) TOXIC CHANGES (test Present A code = 803-7) Lab Interpretation Abnormal (test code = 21433-5) [facility] WITH [id number] 10:21:29 Test Item Value Reference Range Interpretation [...] RDW-SD (test code = 44.0 fL 39.0-49.9 61421-1) RDW-CV (test code = 14.1 % 12.0-15.5 788-0) PLT (test code = See_Comment [Automated 777-3) message] The system which generated this result transmit britney reference range : 166 - 358 10*3/ ?L. The reference range was not u sed to interpret th is result as normal/abnormal . MPV (test code = 10.5 fL 9.5-12.9 79598-5) NRBC/100 WBC (test See_Comment [Automat ed code = 5532130050) message] The system which generated this result transmit britney reference range : 0.0 - 10.0 /100 WBCs. The reference range was not used to interpret this result as normal/abnormal . NRBC x10^3 (test code <0.01 See_Comment [Auto mated = 1457870708) message] The system which generated this result transmit britney reference range : 10*3/?L. The reference range was not used to interpret this result as normal/abnormal . GRAN MAT (NEUT) % 94.3 % (test code = 770-8) IMM GRAN % (test code 1.00 % = 6577620028) LYMPH % (test code = 2.1 % 736-9) MONO % (test code = 2.5 % 5905-5) EOS % (test code = 0.0 % 713-8) BASO % (test code = 0.1 % 706-2) GRAN MAT x10^3(ANC) 18.69 10*3/uL 1.88-7.09 H (test code = 4458916268) IMM GRAN x10^3 (test 0.20 10*3/uL 0.00-0.06 H code = 2902808951) LYMPH x10^3 (test code 0.42 10*3/uL 1.32-3.29 L = 731-0) MONO x10^3 (test code 0.50 10*3/uL 0.33-0.92 = 742-7) EOS x10^3 (test code = <0.03 0.03-0.39 L 711-2) BASO x10^3 (test code <0.03 0.01-0.07 = 704-7) TOXIC CHANGES (test Present A code = 803-7) Lab Interpretation Abnormal (test code = 99478-9) [facility] (NA, K, CL, CO2, GLUCOSE, BUN, CREATININE, CA)2021-10-18 09:49:57 Test Item Value Reference Range Interpretation Comments NA (test code = 141 mmol/L 135-145 8453663026) K (test code = 4.9 mmol/L 3.5-5.0 5452433401) CL (test code = 107 mmol/L 98-108 9248696738) CO2 TOTAL (test code = 26 mmol/L 23-31 8435500208) AGAP (test code = 2-16 7627954462) BUN (test code = 30 mg/dL 7-23 H 8175927039) GLUCOSE (test code = 166 mg/dL 70-110 H 5879861569) CREATININE (test code = 0.76 mg/dL 0.50-1.04 2715538241) CALCIUM (test code = 8.2 mg/dL 8.6-10.6 L 4925389426) eGFR (test code = mL/min/1.73m2 3589867902) LUCILLE (test code = LUCILLE) Association of [...] tests). Lab Interpretation Abnormal (test code = 76187-7) [facility]2022-[facility]-15 09:49:57 Test Item Value Reference Range Interpretation Comments MAGNESIUM (test code = 9090330708) 3.0 mg/dL 1.7-2.4 H Lab Interpretation (test code = Abnormal 58734-3) [facility]PH[facility]2022-02-15 09:49:57 Test Item Value Reference Range Interpretation Comments PHOSPHORUS (test code = 1643191036) 4.0 mg/dL 2.5-5.0 Lab Interpretation (test code = Normal 03414-7) [facility] (NA, K, CL, CO2, GLUCOSE, BUN, CREATININE, CA)2021-10-18 09:49:57 Test Item Value Reference Range Interpretation Comments NA (test code = 141 mmol/L 135-145 7686619832) K (test code = 4.9 mmol/L 3.5-5.0 5198569779) CL (test code = 107 mmol/L 98-108 7419214496) CO2 TOTAL (test code = 26 mmol/L 23-31 5672116141) AGAP (test code = 2-16 7736426794) BUN (test code = 30 mg/dL 7-23 H 2798082984) GLUCOSE (test code = 166 mg/dL 70-110 H 1819678855) CREATININE (test code = 0.76 mg/dL 0.50-1.04 1627671231) CALCIUM (test code = 8.2 mg/dL 8.6-10.6 L 5274704995) eGFR (test code = mL/min/1.73m2 0276790238) LUCILLE (test code = LUCILLE) Association of [...] tests). Lab Interpretation Abnormal (test code = 80807-3) [facility]20[facility]-15 09:49:57 Test Item Value Reference Range Interpretation Comments MAGNESIUM (test code = 8771242343) 3.0 mg/dL 1.7-2.4 H Lab Interpretation (test code = Abnormal 80248-1) [facility]2022-[facility]-15 09:49:57 Test Item Value Reference Range Interpretation Comments PHOSPHORUS (test code = 8729362544) 4.0 mg/dL 2.5-5.0 Lab Interpretation (test code = Normal 02730-9) [facility]HIV [facility]-AB WITH [id number] 02:31:06 Test Item Value Reference Range Interpretation Comments HIV Negative Negative Semi-quantitative (test code = 04499-2) LUCILLE (test code = Non-reactive for HIV-1 LUCILLE) antigen and HIV-1/HIV-2 antibodies. ?No laboratory evidence of HIV infection. ?Repeat in 2-4 weeks if acute [facility] infection is suspected. [facility] [id number] 02:31:06 Test Item Value Reference Range Interpretation Comments HIV Negative Negative Semi-quantitative (test code = 82438-7) LUCILLE (test code = Non-reactive for HIV-1 LUCILLE) antigen and HIV-1/HIV-2 antibodies. ?No laboratory evidence of HIV infection. ?Repeat in 2-4 weeks if acute HIV infection is suspected. [facility] METABOLIC PANEL (NA, K, CL, CO2, GLUCOSE, BUN, CREATININE, CA)2021-10-18 01:11:26 Test Item Value Reference Range Interpretation Comments NA (test code = 141 mmol/L 135-145 2204336279) K (test code = 4.6 mmol/L 3.5-5.0 0211528224) CL (test code = 106 mmol/L 98-108 8642068739) CO2 TOTAL (test code = 26 mmol/L 23-31 4691304820) AGAP (test code = 2-16 9073079922) BUN (test code = 28 mg/dL 7-23 H 8793954215) GLUCOSE (test code = 180 mg/dL 70-110 H 1209043047) CREATININE (test code = 0.82 mg/dL 0.50-1.04 4603821641) CALCIUM (test code = 8.3 mg/dL 8.6-10.6 L 0703563490) eGFR (test code = mL/min/1.73m2 5143147745) LUCILLE (test code = LUCILLE) Association of [...] tests). Lab Interpretation Abnormal (test code = 65203-9) [facility] METABOLIC PANEL (NA, K, CL, CO2, GLUCOSE, BUN, CREATININE, CA)2021-10-18 01:11:26 Test Item Value Reference Range Interpretation Comments NA (test code = 141 mmol/L 135-145 2187117047) K (test code = 4.6 mmol/L 3.5-5.0 3203894788) CL (test code = 106 mmol/L 98-108 7388881608) CO2 TOTAL (test code = 26 mmol/L 23-31 0937729427) AGAP (test code = 2-16 6251246445) BUN (test code = 28 mg/dL 7-23 H 7650128073) GLUCOSE (test code = 180 mg/dL 70-110 H 1252055384) CREATININE (test code = 0.82 mg/dL 0.50-1.04 6798746268) CALCIUM (test code = 8.3 mg/dL 8.6-10.6 L 4468215070) eGFR (test code = mL/min/1.73m2 4714838175) LUCILLE (test code = LUCILLE) Association of [...] tests). Lab Interpretation Abnormal (test code = 23419-5) [facility] [id number] 22:06:03 Test Item Value Reference Range Interpretation Comments NT-proBNP (test code 250 pg/mL See_Comment H [Autom ated = 7462870664) message] The system which generated this result transmitted reference range : <=125. The reference range was not used to interpret this result as normal/abnormal . LUCILLE (test code = LUCILLE) Biotin has been reported to cause a negative bias, interpret results relative to patient's use of biotin. Lab Interpretation Abnormal (test code = 54441-0) [facility] [id number] 22:06:03 Test Item Value Reference Range Interpretation Comments NT-proBNP (test code 250 pg/mL See_Comment H [Autom ated = 2628935337) message] The system which generated this result transmitted reference range : <=125. The reference range was not used to interpret this result as normal/abnormal . LUCILLE (test code = LUCILLE) Biotin has been reported to cause a negative bias, interpret results relative to patient's use of biotin. Lab Interpretation Abnormal (test code = 94916-6) [facility]ABG+COOX+NA+K+GLU+CA2+2021-10-17 21:42:22 Test Item Value Reference Range Interpretation Comments PH (test code = 2) 7.35-7.45 PCO2 (test code = See_Comment [Automat ed message] 0333065547) The system whic h generated this result transmit britney reference range : 35 - 45 mmHg. The reference range was not used to interpret this result as normal/abnormal . PO2 (test code = See_Comment H [Automated message] 0796302870) The system Estify generated this result transmit britney reference range : 80 - 100 mmHg. The reference range was not used to interpret this result as normal/abnormal . HCO3 (test code = See_Comment [Automate d message] 8730535577) The system Estify generated this result transmit britney reference range : 22 - 26 mEq/L. The reference range was not used to interpret this result as normal/abnormal . BE (test code = See_Comment [Automated message] 8257569883) The system Estify generated this result transmit britney reference range : -3.0 - 3.0 mEq/ L. The reference r nicholas was not used to interpret this result as normal/abnormal . THB (test code = 13.0 g/dL 12.0-16.0 3177727070) %O2HB (test code = 98.9 % 94.0-99.0 0507916060) %COHB ART (test code = 0.3 % 0.0-1.5 9391512627) %METHB ART (test code = 0.0 % 0.4-1.5 L 1572154259) VOL%O2 ART (test code = 18.5 % 15.0-23.0 7220964138) NA (test code = 139 mmol/L 135-145 0215754168) K+ (test code = 4.6 mmol/L 3.5-5.0 5887022957) AC CA IONZ (test code = 4.50 mg/dL 4.50-5.30 8750856494) GLUCOSE (test code = 166 mg/dL 70-110 H 3289822080) Lab Interpretation Abnormal (test code = 81388-1) [facility]AB[facility]+COOX+NA+K+GLU+CA2+2021-10-17 21:42:22 Test Item Value Reference Range Interpretation Comments PH (test code = 2) 7.35-7.45 PCO2 (test code = See_Comment [Automat ed message] 0928113878) The system Estify generated this result transmit britney reference range : 35 - 45 mmHg. The reference range was not used to interpret this result as normal/abnormal . PO2 (test code = See_Comment H [Automated message] 9110218965) The system Estify generated this result transmit britney reference range : 80 - 100 mmHg. The reference range was not used to interpret this result as normal/abnormal . HCO3 (test code = See_Comment [Automate d message] 6597058759) The system Estify generated this result transmit britney reference range : 22 - 26 mEq/L. The reference range was not used to interpret this result as normal/abnormal . BE (test code = See_Comment [Automated message] 1093680447) The system Estify generated this result transmit britney reference range : -3.0 - 3.0 mEq/ L. The reference r nicholas was not used to interpret this result as normal/abnormal . THB (test code = 13.0 g/dL 12.0-16.0 8324977437) %O2HB (test code = 98.9 % 94.0-99.0 1170371125) %COHB ART (test code = 0.3 % 0.0-1.5 9870120744) %METHB ART (test code = 0.0 % 0.4-1.5 L 8423648054) VOL%O2 ART (test code = 18.5 % 15.0-23.0 3440121346) NA (test code = 139 mmol/L 135-145 5402409857) K+ (test code = 4.6 mmol/L 3.5-5.0 1636472937) AC CA IONZ (test code = 4.50 mg/dL 4.50-5.30 5090862222) GLUCOSE (test code = 166 mg/dL 70-110 H 8334743531) Lab Interpretation Abnormal (test code = 08465-4) [facility] WITH [id number] 11:01:03 Test Item Value Reference Range Interpretation [...] RDW-SD (test code = 44.5 fL 39.0-49.9 07250-9) RDW-CV (test code = 14.1 % 12.0-15.5 788-0) PLT (test code = See_Comment [Automated 777-3) message] The system which generated this result transmit britney reference range : 166 - 358 10*3/ ?L. The reference range was not u sed to interpret th is result as normal/abnormal . MPV (test code = 11.0 fL 9.5-12.9 15284-9) NRBC/100 WBC (test See_Comment [Automat ed code = 1544875022) message] The system which generated this result transmit britney reference range : 0.0 - 10.0 /100 WBCs. The reference range was not used to interpret this result as normal/abnormal . NRBC x10^3 (test code <0.01 See_Comment [Auto mated = 0576245036) message] The system which generated this result transmit britney reference range : 10*3/?L. The reference range was not used to interpret this result as normal/abnormal . GRAN MAT (NEUT) % 91.6 % (test code = 770-8) IMM GRAN % (test code 1.40 % = 6309125962) LYMPH % (test code = 5.5 % 736-9) MONO % (test code = 1.4 % 5905-5) EOS % (test code = 0.0 % 713-8) BASO % (test code = 0.1 % 706-2) GRAN MAT x10^3(ANC) 17.75 10*3/uL 1.88-7.09 H (test code = 5771334026) IMM GRAN x10^3 (test 0.27 10*3/uL 0.00-0.06 H code = 1839590195) LYMPH x10^3 (test code 1.06 10*3/uL 1.32-3.29 L = 731-0) MONO x10^3 (test code 0.28 10*3/uL 0.33-0.92 L = 742-7) EOS x10^3 (test code = <0.03 0.03-0.39 L 711-2) BASO x10^3 (test code <0.03 0.01-0.07 = 704-7) TOXIC CHANGES (test Present A code = 803-7) Lab Interpretation Abnormal (test code = 84256-5) [facility] WITH [id number] 11:01:03 Test Item Value Reference Range Interpretation Comments WBC (test code = See_Comment H [Automated 3773-2) message] The system which generated this result transmit britney reference range : 4.30 - 11.10 10*3/?L. The reference range was not used to interpret this result as normal/abnormal . RBC (test code = See_Comment [Automated 629-8) message] The system which generated this result [...] RDW-SD (test code = 44.5 fL 39.0-49.9 60259-6) RDW-CV (test code = 14.1 % 12.0-15.5 788-0) PLT (test code = See_Comment [Automated 277-3) message] The system which generated this result transmit britney reference range : 166 - 358 10*3/ ?L. The reference range was not u sed to interpret th is result as normal/abnormal . MPV (test code = 11.0 fL 9.5-12.9 19054-6) NRBC/100 WBC (test See_Comment [Automat ed code = 4565138734) message] The system which generated this result transmit britney reference range : 0.0 - 10.0 /100 WBCs. The reference range was not used to interpret this result as normal/abnormal . NRBC x10^3 (test code <0.01 See_Comment [Auto mated = 3459197955) message] The system which generated this result transmit britney reference range : 10*3/?L. The reference range was not used to interpret this result as normal/abnormal . GRAN MAT (NEUT) % 91.6 % (test code = 770-8) IMM GRAN % (test code 1.40 % = 7155515196) LYMPH % (test code = 5.5 % 736-9) MONO % (test code = 1.4 % 5905-5) EOS % (test code = 0.0 % 713-8) BASO % (test code = 0.1 % 706-2) GRAN MAT x10^3(ANC) 17.75 10*3/uL 1.88-7.09 H (test code = 5783673395) IMM GRAN x10^3 (test 0.27 10*3/uL 0.00-0.06 H code = 7635573049) LYMPH x10^3 (test code 1.06 10*3/uL 1.32-3.29 L = 731-0) MONO x10^3 (test code 0.28 10*3/uL 0.33-0.92 L = 742-7) EOS x10^3 (test code = <0.03 0.03-0.39 L 711-2) BASO x10^3 (test code <0.03 0.01-0.07 = 704-7) TOXIC CHANGES (test Present A code = 803-7) Lab Interpretation Abnormal (test code = 45381-1) [facility] METABOLIC PANEL (NA, K, CL, CO2, GLUCOSE, BUN, CREATININE, CA)2021-10-17 10:54:32 Test Item Value Reference Range Interpretation Comments NA (test code = 135 mmol/L 135-145 4341266237) K (test code = 5.2 mmol/L 3.5-5.0 H Slight 3068251788) hemolysis CL (test code = 101 mmol/L 98-108 7835613518) CO2 TOTAL (test code 27 mmol/L 23-31 = 1840831354) AGAP (test code = 2-16 0809055589) BUN (test code = 21 mg/dL 7-23 Slight 7395827310) hemolysis GLUCOSE (test code = 153 mg/dL 70-110 H 2575210118) CREATININE (test code 0.71 mg/dL 0.50-1.04 = 8876659252) CALCIUM (test code = 8.3 mg/dL 8.6-10.6 L 0261775498) eGFR (test code = mL/min/1.73m2 9171232242) LUCILLE (test code = LUCILLE) Association of [...] tests). Lab Interpretation Abnormal (test code = 31695-0) [facility] 10:54:32 Test Item Value Reference Range Interpretation Comments MAGNESIUM (test code = 7652446751) 2.2 mg/dL 1.7-2.4 Lab Interpretation (test code = Normal 77512-4) [facility] 10:54:32 Test Item Value Reference Range Interpretation Comments PHOSPHORUS (test code = 7193694643) 5.9 mg/dL 2.5-5.0 H Lab Interpretation (test code = Abnormal 61075-4) [facility] (NA, K, CL, CO2, GLUCOSE, BUN, CREATININE, CA)2021-10-17 10:54:32 Test Item Value Reference Range Interpretation Comments NA (test code = 135 mmol/L 135-145 5013638327) K (test code = 5.2 mmol/L 3.5-5.0 H Slight 2848635943) hemolysis CL (test code = 101 mmol/L 98-108 2512236379) CO2 TOTAL (test code 27 mmol/L 23-31 = 2373281802) AGAP (test code = 2-16 9625877045) BUN (test code = 21 mg/dL 7-23 Slight 9035675293) hemolysis GLUCOSE (test code = 153 mg/dL 70-110 H 7427669990) CREATININE (test code 0.71 mg/dL 0.50-1.04 = 6627288539) CALCIUM (test code = 8.3 mg/dL 8.6-10.6 L 6153914285) eGFR (test code = mL/min/1.73m2 4469494322) LUCILLE (test code = LUCILLE) Association of [...] tests). Lab Interpretation Abnormal (test code = 81771-0) [facility] 10:54:32 Test Item Value Reference Range Interpretation Comments MAGNESIUM (test code = 1716473405) 2.2 mg/dL 1.7-2.4 Lab Interpretation (test code = Normal 50698-8) [facility] 10:54:32 Test Item Value Reference Range Interpretation Comments PHOSPHORUS (test code = 0813502178) 5.9 mg/dL 2.5-5.0 H Lab Interpretation (test code = Abnormal 69512-8) [facility] [id number] 10:53:06 Test Item Value Reference Range Interpretation Comments ESR (test code = See_Comment H [Automated message] 6492316990) The system Estify generated this result transmitted ref erence range: 0 - 20 m m/HR. The reference r nicholas was not used to interpret this result as normal/abnor mal. Lab Interpretation (test Abnormal code = 84167-5) [facility] [id number] 10:53:06 Test Item Value Reference Range Interpretation Comments ESR (test code = See_Comment H [Automated message] 2891229087) The system Estify generated this result transmitted ref erence range: 0 - 20 m m/HR. The reference r nicholas was not used to interpret this result as normal/abnor mal. Lab Interpretation (test Abnormal code = 38404-8) [facility] 11:13:05 Test Item Value Reference Range Interpretation Comments MAGNESIUM (test code = 9217229401) 2.3 mg/dL 1.7-2.4 Lab Interpretation (test code = Normal 93805-9) [facility] 11:13:05 Test Item Value Reference Range Interpretation Comments PHOSPHORUS (test code = [id number]) 3.4 mg/dL 2.5-5.0 Lab Interpretation (test code = Normal 08438-7) [facility] Test Item Value Reference Range Interpretation Comments MAGNESIUM (test code = 7477379639) 2.3 mg/dL 1.7-2.4 Lab Interpretation (test code = Normal 10248-2) [facility] 11:13:05 Test Item Value Reference Range Interpretation Comments PHOSPHORUS (test code = 5545203048) 3.4 mg/dL 2.5-5.0 Lab Interpretation (test code = Normal 23586-7) [facility] (NA, K, CL, CO2, GLUCOSE, BUN, CREATININE, CA)2021-10-16 11:13:04 Test Item Value Reference Range Interpretation Comments NA (test code = 135 mmol/L 135-145 6934724267) K (test code = 4.6 mmol/L 3.5-5.0 5950894463) CL (test code = 102 mmol/L 98-108 3408707146) CO2 TOTAL (test code = 29 mmol/L 23-31 5165425825) AGAP (test code = 2-16 7691896906) BUN (test code = 24 mg/dL 7-23 H 5311841458) GLUCOSE (test code = 90 mg/dL 70-110 2541323644) CREATININE (test code = 0.87 mg/dL 0.50-1.04 7111733600) CALCIUM (test code = 8.0 mg/dL 8.6-10.6 L 5725929174) eGFR (test code = mL/min/1.73m2 1027013429) LUCILLE (test code = LUCILLE) Association of [...] tests). Lab Interpretation Abnormal (test code = 00604-7) [facility] METABOLIC PANEL (NA, K, CL, CO2, GLUCOSE, BUN, CREATININE, CA)2021-10-16 11:13:04 Test Item Value Reference Range Interpretation Comments NA (test code = 135 mmol/L 135-145 0041461266) K (test code = 4.6 mmol/L 3.5-5.0 5190055198) CL (test code = 102 mmol/L 98-108 0732819256) CO2 TOTAL (test code = 29 mmol/L 23-31 7413904772) AGAP (test code = 2-16 2798116799) BUN (test code = 24 mg/dL 7-23 H 7948240639) GLUCOSE (test code = 90 mg/dL 70-110 9076049994) CREATININE (test code = 0.87 mg/dL 0.50-1.04 3144589898) CALCIUM (test code = 8.0 mg/dL 8.6-10.6 L 0632118260) eGFR (test code = mL/min/1.73m2 7605937268) LUCILLE (test code = LUCILLE) Association of [...] tests). Lab Interpretation Abnormal (test code = 88516-8) [facility] LACTIC [id number] 10:59:55 Test Item Value Reference Range Interpretation Comments PH (test code = 2) 7.35-7.45 PCO2 (test code = See_Comment [Automat ed 8634605662) message] The sy stem which generated this result transmitted reference range : 35 - 45 mmHg. The reference range was not used to interpret this result as normal/abnormal . PO2 (test code = See_Comment L [Automated 7144395376) message] The sy stem which generated this result transmitted reference range : 80 - 100 mmHg. The reference range was not used to interpret this result as normal/abnormal . HCO3 (test code = See_Comment H [Automate d 8428184606) message] The sy stem which generated this result transmitted reference range : 22 - 26 mEq/L. The reference range was not used to interpret this result as normal/abnormal . BE (test code = See_Comment [Automated 6391866569) message] The sy stem which generated this result transmitted reference range : -3.0 - 3.0 mEq/ L. The reference r nicholas was not used to interpret this result as normal/abnormal . THB (test code = 13.7 g/dL 12.0-16.0 4188154754) %O2HB (test code = 86.3 % 94.0-99.0 L 0200790512) %COHB ART (test code = 0.1 % 0.0-1.5 5036690515) %METHB ART (test code = 0.1 % 0.4-1.5 L 1737449824) VOL%O2 ART (test code = 16.6 % 15.0-23.0 0365590554) NA (test code = 135 mmol/L 135-145 5829148295) K+ (test code = 4.6 mmol/L 3.5-5.0 2148170326) AC CA IONZ (test code = 4.70 mg/dL 4.50-5.30 9837213471) GLUCOSE (test code = 88 mg/dL 70-110 6075540657) LACTIC ACID (test code 1.41 mmol/L 0.50-2.20 QUES = 5998393003) Lab Interpretation Abnormal (test code = 20546-1) [facility] LACTIC [id number] 10:59:55 Test Item Value Reference Range Interpretation Comments PH (test code = 2) 7.35-7.45 PCO2 (test code = See_Comment [Automat ed 7646598816) message] The sy stem which generated this result transmitted reference range : 35 - 45 mmHg. The reference range was not used to interpret this result as normal/abnormal . PO2 (test code = See_Comment L [Automated 3355811556) message] The sy stem which generated this result transmitted reference range : 80 - 100 mmHg. The reference range was not used to interpret this result as normal/abnormal . HCO3 (test code = See_Comment H [Automate d 4389673803) message] The sy stem which generated this result transmitted reference range : 22 - 26 mEq/L. The reference range was not used to interpret this result as normal/abnormal . BE (test code = See_Comment [Automated 5588369576) message] The sy stem which generated this result transmitted reference range : -3.0 - 3.0 mEq/ L. The reference r nicholas was not used to interpret this result as normal/abnormal . THB (test code = 13.7 g/dL 12.0-16.0 9114485751) %O2HB (test code = 86.3 % 94.0-99.0 L 9157468450) %COHB ART (test code = 0.1 % 0.0-1.5 8856433861) %METHB ART (test code = 0.1 % 0.4-1.5 L 3433039524) VOL%O2 ART (test code = 16.6 % 15.0-23.0 6150167682) NA (test code = 135 mmol/L 135-145 0540402010) K+ (test code = 4.6 mmol/L 3.5-5.0 7467207678) AC CA IONZ (test code = 4.70 mg/dL 4.50-5.30 0520477412) GLUCOSE (test code = 88 mg/dL 70-110 9147510273) LACTIC ACID (test code 1.41 mmol/L 0.50-2.20 QUES = 5992143629) Lab Interpretation Abnormal (test code = 62197-2) [facility] WITH [id number] 10:54:01 Test Item Value Reference Range Interpretation Comments WBC (test code = See_Comment H [Automated 4990-2) message] The system which generated this result [...] RDW-SD (test code = 47.0 fL 39.0-49.9 98816-1) RDW-CV (test code = 14.6 % 12.0-15.5 788-0) PLT (test code = See_Comment [Automated 777-3) message] The system which generated this result transmit britney reference range : 166 - 358 10*3/ ?L. The reference range was not u sed to interpret th is result as normal/abnormal . MPV (test code = 10.5 fL 9.5-12.9 46928-4) NRBC/100 WBC (test See_Comment [Automat ed code = 6717324893) message] The system which generated this result transmit britney reference range : 0.0 - 10.0 /100 WBCs. The reference range was not used to interpret this result as normal/abnormal . NRBC x10^3 (test code See_Comment [Auto mated = 9369309861) message] The system which generated this result transmit britney reference range : 10*3/?L. The reference range was not used to interpret this result as normal/abnormal . GRAN MAT (NEUT) % 85.6 % (test code = 770-8) IMM GRAN % (test code 1.10 % = 8252359905) LYMPH % (test code = 9.7 % 736-9) MONO % (test code = 3.0 % 5905-5) EOS % (test code = 0.5 % 713-8) BASO % (test code = 0.1 % 706-2) GRAN MAT x10^3(ANC) 12.97 10*3/uL 1.88-7.09 H (test code = 3672534471) IMM GRAN x10^3 (test 0.16 10*3/uL 0.00-0.06 H code = 6941406929) LYMPH x10^3 (test code 1.47 10*3/uL 1.32-3.29 = 731-0) MONO x10^3 (test code 0.45 10*3/uL 0.33-0.92 = 742-7) EOS x10^3 (test code = 0.08 10*3/uL 0.03-0.39 711-2) BASO x10^3 (test code <0.03 0.01-0.07 = 704-7) Lab Interpretation Abnormal (test code = 31365-8) [facility] WITH [id number] 10:54:01 Test Item Value Reference Range Interpretation Comments WBC (test code = See_Comment H [Automated 9886-2) message] The system which generated this result transmit britney reference range : 4.30 - 11.10 10*3/?L. The reference range was not used to interpret this result as normal/abnormal . RBC (test code = See_Comment [Automated 239-8) message] The system which generated this result [...] RDW-SD (test code = 47.0 fL 39.0-49.9 09533-8) RDW-CV (test code = 14.6 % 12.0-15.5 788-0) PLT (test code = See_Comment [Automated 777-3) message] The system which generated this result transmit britney reference range : 166 - 358 10*3/ ?L. The reference range was not u sed to interpret th is result as normal/abnormal . MPV (test code = 10.5 fL 9.5-12.9 29512-0) NRBC/100 WBC (test See_Comment [Automat ed code = 7092046588) message] The system which generated this result transmit britney reference range : 0.0 - 10.0 /100 WBCs. The reference range was not used to interpret this result as normal/abnormal . NRBC x10^3 (test code See_Comment [Auto mated = 5993618194) message] The system which generated this result transmit britney reference range : 10*3/?L. The reference range was not used to interpret this result as normal/abnormal . GRAN MAT (NEUT) % 85.6 % (test code = 770-8) IMM GRAN % (test code 1.10 % = 0776174151) LYMPH % (test code = 9.7 % 736-9) MONO % (test code = 3.0 % 5905-5) EOS % (test code = 0.5 % 713-8) BASO % (test code = 0.1 % 706-2) GRAN MAT x10^3(ANC) 12.97 10*3/uL 1.88-7.09 H (test code = 1997664785) IMM GRAN x10^3 (test 0.16 10*3/uL 0.00-0.06 H code = 5349734175) LYMPH x10^3 (test code 1.47 10*3/uL 1.32-3.29 = 731-0) MONO x10^3 (test code 0.45 10*3/uL 0.33-0.92 = 742-7) EOS x10^3 (test code = 0.08 10*3/uL 0.03-0.39 711-2) BASO x10^3 (test code <0.03 0.01-0.07 = 704-7) Lab Interpretation Abnormal (test code = 59392-2) [facility]-REACTIVE [id number] 23:24:07 Test Item Value Reference Range Interpretation Comments CRP (test code = 1063271598) 22.1 mg/dL <1.0 H Lab Interpretation (test code = Abnormal 06355-8) [facility]-REACTIVE [id number] 23:24:07 Test Item Value Reference Range Interpretation Comments CRP (test code = 7950795917) 22.1 mg/dL <1.0 H Lab Interpretation (test code = Abnormal 90413-7) [facility] [id number] 23:21:42 Test Item Value Reference Interpretation Comments Range TROPONIN I (test 0.003 ng/mL See_Comment [Automated code = 8181754184) message] The system which generated this result [...] biotin. Lab Interpretation Normal (test code = 25834-2) [facility] [id number] 23:21:42 Test Item Value Reference Interpretation Comments Range TROPONIN I (test 0.003 ng/mL See_Comment [Automated code = 7635698449) message] The system which generated this result [...] biotin. Lab Interpretation Normal (test code = 60947-6) [facility] METABOLIC PANEL (NA, K, CL, CO2, GLUCOSE, BUN, CREATININE, CA)2021-10-15 23:12:40 Test Item Value Reference Range Interpretation Comments NA (test code = 136 mmol/L 135-145 3781317719) K (test code = 4.8 mmol/L 3.5-5.0 2394446119) CL (test code = 104 mmol/L 98-108 6726518483) CO2 TOTAL (test code = 26 mmol/L 23-31 9657740457) AGAP (test code = 2-16 6412276397) BUN (test code = 22 mg/dL 7-23 9156373697) GLUCOSE (test code = 114 mg/dL 70-110 H 2529565383) CREATININE (test code = 0.77 mg/dL 0.50-1.04 7344871044) CALCIUM (test code = 8.2 mg/dL 8.6-10.6 L 1118034020) eGFR (test code = mL/min/1.73m2 7013619375) LUCILLE (test code = LUCILLE) Association of [...] tests). Lab Interpretation Abnormal (test code = 28296-2) [facility] METABOLIC PANEL (NA, K, CL, CO2, GLUCOSE, BUN, CREATININE, CA)2021-10-15 23:12:40 Test Item Value Reference Range Interpretation Comments NA (test code = 136 mmol/L 135-145 2484902571) K (test code = 4.8 mmol/L 3.5-5.0 0106665122) CL (test code = 104 mmol/L 98-108 3550596787) CO2 TOTAL (test code = 26 mmol/L 23-31 5068811866) AGAP (test code = 2-16 1956150954) BUN (test code = 22 mg/dL 7-23 8243982924) GLUCOSE (test code = 114 mg/dL 70-110 H 1175569780) CREATININE (test code = 0.77 mg/dL 0.50-1.04 3668897373) CALCIUM (test code = 8.2 mg/dL 8.6-10.6 L 4184051646) eGFR (test code = mL/min/1.73m2 6535456763) LUCILLE (test code = LUCILLE) Association of [...] tests). Lab Interpretation Abnormal (test code = 84367-0) [facility] [id number] 21:55:57 Test Item Value Reference Interpretation Comments Range TROPONIN I (test 0.003 ng/mL See_Comment [Automated code = 0871428184) message] The system which generated this result [...] biotin. Lab Interpretation Normal (test code = 77989-7) [facility] [id number] 21:55:57 Test Item Value Reference Interpretation Comments Range TROPONIN I (test 0.003 ng/mL See_Comment [Automated code = 1807404956) message] The system which generated this result [...] biotin. Lab Interpretation Normal (test code = 62817-1) [facility]20[facility] 19:07:46 Test Item Value Reference Range Interpretation Comments Procalcitonin (test 0.15 ng/mL <0.08 H code = 2285817413) LUCILLE (test code = LUCILLE) INTERPRETATION OF [...] lung abscess/empyema. For further information please refer to:[email or web address] Lab Interpretation Abnormal (test code = 94146-3) [facility]2022-[facility]-12 19:07:46 Test Item Value Reference Range Interpretation Comments Procalcitonin (test 0.15 ng/mL <0.08 H code = 8516143974) LUCILLE (test code = LUCILLE) INTERPRETATION OF [...] lung abscess/empyema. For further information please refer to:[email or web address] Lab Interpretation Abnormal (test code = 99591-0) [facility] [id number] 18:31:24 Test Item Value Reference Range Interpretation Comments NT-proBNP (test code 43 pg/mL See_Comment [Autom ated = 2925131917) message] The system which generated this result transmitted reference range : <=125. The reference range was not used to interpret this result as normal/abnormal . LUCILLE (test code = LUCILLE) Biotin has been reported to cause a negative bias, interpret results relative to patient's use of biotin. Lab Interpretation Normal (test code = 26653-9) [facility] [id number] 18:31:24 Test Item Value Reference Range Interpretation Comments NT-proBNP (test code 43 pg/mL See_Comment [Autom ated = 3401760583) message] The system which generated this result transmitted reference range : <=125. The reference range was not used to interpret this result as normal/abnormal . LUCILLE (test code = LUCILLE) Biotin has been reported to cause a negative bias, interpret results relative to patient's use of biotin. Lab Interpretation Normal (test code = 88125-5) [facility]2022-02-12 09:17:58 Test Item Value Reference Range Interpretation Comments Procalcitonin (test 0.15 ng/mL <0.08 H code = 9936964499) LUCILLE (test code = LUCILLE) INTERPRETATION OF [...] lung abscess/empyema. For further information please refer to:[email or web address] Lab Interpretation Abnormal (test code = 76130-7) [facility]onin2022-02-12 09:17:58 Test Item Value Reference Range Interpretation Comments Procalcitonin (test 0.15 ng/mL <0.08 H code = 4928528074) LUCILLE (test code = LUCILLE) INTERPRETATION OF [...] lung abscess/empyema. For further information please refer to:[email or web address] Lab Interpretation Abnormal (test code = 63602-6) [facility] (NA, K, CL, CO2, GLUCOSE, BUN, CREATININE, CA)2021-10-15 08:36:11 Test Item Value Reference Range Interpretation Comments NA (test code = 139 mmol/L 135-145 8544799543) K (test code = 5.5 mmol/L 3.5-5.0 H Slight 6297594445) hemolysis CL (test code = 104 mmol/L 98-108 4080518568) CO2 TOTAL (test code 29 mmol/L 23-31 = 5971868401) AGAP (test code = 2-16 9705729959) BUN (test code = 17 mg/dL 7-23 Slight 8841697397) hemolysis GLUCOSE (test code = 131 mg/dL 70-110 H 1556455133) CREATININE (test code 0.77 mg/dL 0.50-1.04 = 4001537122) CALCIUM (test code = 8.5 mg/dL 8.6-10.6 L 5878224654) eGFR (test code = mL/min/1.73m2 1104709196) LUCILLE (test code = LUCILLE) Association of [...] tests). Lab Interpretation Abnormal (test code = 18822-4) [facility] HospitalMagensium [id number] 08:36:11 Test Item Value Reference Range Interpretation Comments MAGNESIUM (test code = 4646986404) 2.4 mg/dL 1.7-2.4 Lab Interpretation (test code = Normal 04728-6) [facility] (NA, K, CL, CO2, GLUCOSE, BUN, CREATININE, CA)2021-10-15 08:36:11 Test Item Value Reference Range Interpretation Comments NA (test code = 139 mmol/L 135-145 6572467809) K (test code = 5.5 mmol/L 3.5-5.0 H Slight 4927088131) hemolysis CL (test code = 104 mmol/L 98-108 4175865515) CO2 TOTAL (test code 29 mmol/L 23-31 = 8637012752) AGAP (test code = 2-16 3754743965) BUN (test code = 17 mg/dL 7-23 Slight 6501820398) hemolysis GLUCOSE (test code = 131 mg/dL 70-110 H 0207563092) CREATININE (test code 0.77 mg/dL 0.50-1.04 = 7685260134) CALCIUM (test code = 8.5 mg/dL 8.6-10.6 L 0818064497) eGFR (test code = mL/min/1.73m2 4166377464) LUCILLE (test code = LUCILLE) Association of [...] tests). Lab Interpretation Abnormal (test code = 19876-1) [facility] Hospital[facility] [id number] 08:36:11 Test Item Value Reference Range Interpretation Comments MAGNESIUM (test code = 9710090605) 2.4 mg/dL 1.7-2.4 Lab Interpretation (test code = Normal 46446-9) [facility] HospitalTroponin [id number] 08:21:08 Test Item Value Reference Interpretation Comments Range TROPONIN I (test 0.005 ng/mL See_Comment [Automated code = 0289999704) message] The system which generated this result [...] biotin. Lab Interpretation Normal (test code = 78699-2) [facility] HospitalTroponin [id number] 08:21:08 Test Item Value Reference Interpretation Comments Range TROPONIN I (test 0.005 ng/mL See_Comment [Automated code = 2198830875) message] The system which generated this result [...] biotin. Lab Interpretation Normal (test code = 85429-7) [facility] WITH [id number] 07:37:26 Test Item Value Reference Range Interpretation Comments WBC (test code = See_Comment H [Automated 6168-2) message] The system which generated this result transmit britney reference range : 4.30 - 11.10 10*3/?L. The reference range was not used to interpret this result as normal/abnormal . RBC (test code = See_Comment [Automated 584-8) message] The system which generated this result [...] RDW-SD (test code = 47.4 fL 39.0-49.9 03951-1) RDW-CV (test code = 14.6 % 12.0-15.5 788-0) PLT (test code = See_Comment [Automated 777-3) message] The system which generated this result transmit britney reference range : 166 - 358 10*3/ ?L. The reference range was not u sed to interpret th is result as normal/abnormal . MPV (test code = 11.1 fL 9.5-12.9 90158-4) NRBC/100 WBC (test See_Comment [Automat ed code = 4423766807) message] The system which generated this result transmit britney reference range : 0.0 - 10.0 /100 WBCs. The reference range was not used to interpret this result as normal/abnormal . NRBC x10^3 (test code <0.01 See_Comment [Auto mated = 1968327296) message] The system which generated this result transmit britney reference range : 10*3/?L. The reference range was not used to interpret this result as normal/abnormal . GRAN MAT (NEUT) % 92.0 % (test code = 770-8) IMM GRAN % (test code 1.10 % = 7009074355) LYMPH % (test code = 5.0 % 736-9) MONO % (test code = 1.8 % 5905-5) EOS % (test code = 0.0 % 713-8) BASO % (test code = 0.1 % 706-2) GRAN MAT x10^3(ANC) 20.65 10*3/uL 1.88-7.09 H (test code = 7836749588) IMM GRAN x10^3 (test 0.25 10*3/uL 0.00-0.06 H code = 2697050600) LYMPH x10^3 (test code 1.13 10*3/uL 1.32-3.29 L = 731-0) MONO x10^3 (test code 0.40 10*3/uL 0.33-0.92 = 742-7) EOS x10^3 (test code = <0.03 0.03-0.39 L 711-2) BASO x10^3 (test code 0.03 10*3/uL 0.01-0.07 = 704-7) Lab Interpretation Abnormal (test code = 28872-4) [facility] WITH [id number] 07:37:26 Test Item Value Reference Range Interpretation [...] RDW-SD (test code = 47.4 fL 39.0-49.9 01719-1) RDW-CV (test code = 14.6 % 12.0-15.5 788-0) PLT (test code = See_Comment [Automated 777-3) message] The system which generated this result transmit britney reference range : 166 - 358 10*3/ ?L. The reference range was not u sed to interpret th is result as normal/abnormal . MPV (test code = 11.1 fL 9.5-12.9 27140-7) NRBC/100 WBC (test See_Comment [Automat ed code = 5665277670) message] The system which generated this result transmit britney reference range : 0.0 - 10.0 /100 WBCs. The reference range was not used to interpret this result as normal/abnormal . NRBC x10^3 (test code <0.01 See_Comment [Auto mated = 2209408558) message] The system which generated this result transmit britney reference range : 10*3/?L. The reference range was not used to interpret this result as normal/abnormal . GRAN MAT (NEUT) % 92.0 % (test code = 770-8) IMM GRAN % (test code 1.10 % = 4671685620) LYMPH % (test code = 5.0 % 736-9) MONO % (test code = 1.8 % 5905-5) EOS % (test code = 0.0 % 713-8) BASO % (test code = 0.1 % 706-2) GRAN MAT x10^3(ANC) 20.65 10*3/uL 1.88-7.09 H (test code = 2128313004) IMM GRAN x10^3 (test 0.25 10*3/uL 0.00-0.06 H code = 9341554612) LYMPH x10^3 (test code 1.13 10*3/uL 1.32-3.29 L = 731-0) MONO x10^3 (test code 0.40 10*3/uL 0.33-0.92 = 742-7) EOS x10^3 (test code = <0.03 0.03-0.39 L 711-2) BASO x10^3 (test code 0.03 10*3/uL 0.01-0.07 = 704-7) Lab Interpretation Abnormal (test code = 08988-2) [facility]NA+K+GLU+CA2+2021-10-15 07:28:14 Test Item Value Reference Range Interpretation Comments PH (test code = 2) 7.35-7.45 PCO2 (test code = See_Comment [Automat ed message] 1384588340) The system Estify generated this result transmit britney reference range : 35 - 45 mmHg. The reference range was not used to interpret this result as normal/abnormal . PO2 (test code = See_Comment H [Automated message] 2523644091) The system Est[employer] generated this result transmit britney reference range : 80 - 100 mmHg. The reference range was not used to interpret this result as normal/abnormal . HCO3 (test code = See_Comment [Automate d message] 3534155217) The system Estify generated this result transmit britney reference range : 22 - 26 mEq/L. The reference range was not used to interpret this result as normal/abnormal . BE (test code = See_Comment [Automated message] 0663026617) The system Estify generated this result transmit britney reference range : -3.0 - 3.0 mEq/ L. The reference r nicholas was not used to interpret this result as normal/abnormal . THB (test code = 13.1 g/dL 12.0-16.0 9491048153) %O2HB (test code = 98.7 % 94.0-99.0 8532074623) %COHB ART (test code = 0.4 % 0.0-1.5 7323439684) %METHB ART (test code = 0.0 % 0.4-1.5 L 7824417819) VOL%O2 ART (test code = 18.5 % 15.0-23.0 QUES 5993392598) NA (test code = 138 mmol/L 135-145 2857976819) K+ (test code = 5.0 mmol/L 3.5-5.0 9608470804) AC CA IONZ (test code = 4.50 mg/dL 4.50-5.30 5744607875) GLUCOSE (test code = 138 mg/dL 70-110 H 7956542586) Lab Interpretation Abnormal (test code = 99120-4) [facility]+NA+K+GLU+CA2+2021-10-15 07:28:14 Test Item Value Reference Range Interpretation Comments PH (test code = 2) 7.35-7.45 PCO2 (test code = See_Comment [Automat ed message] 9900448446) The system Estify generated this result transmit britney reference range : 35 - 45 mmHg. The reference range was not used to interpret this result as normal/abnormal . PO2 (test code = See_Comment H [Automated message] 3651003404) The system Estify generated this result transmit britney reference range : 80 - 100 mmHg. The reference range was not used to interpret this result as normal/abnormal . HCO3 (test code = See_Comment [Automate d message] 9107355075) The system Estify generated this result transmit britney reference range : 22 - 26 mEq/L. The reference range was not used to interpret this result as normal/abnormal . BE (test code = See_Comment [Automated message] 9257807203) The system Estify generated this result transmit britney reference range : -3.0 - 3.0 mEq/ L. The reference r nicholas was not used to interpret this result as normal/abnormal . THB (test code = 13.1 g/dL 12.0-16.0 4090973857) %O2HB (test code = 98.7 % 94.0-99.0 2921295925) %COHB ART (test code = 0.4 % 0.0-1.5 2081836113) %METHB ART (test code = 0.0 % 0.4-1.5 L 4683635556) VOL%O2 ART (test code = 18.5 % 15.0-23.0 QUES [id number]) NA (test code = 138 mmol/L 135-145 [id number]) K+ (test code = 5.0 mmol/L 3.5-5.0 [id number]) AC CA IONZ (test code = 4.50 mg/dL 4.50-5.30 [id number]) GLUCOSE (test code = 138 mg/dL 70-110 H [id number]) Lab Interpretation Abnormal (test code = 80975-0) [facility]
[2021-11-21 00:14] LABS: Absolute Lymphocytes (CBC) 1.5 K/uL (0.7-4.9); Hematocrit 36.3 % (36.0-45.0); Lymphocytes % 9.1 % (15.3-44.8); MPV 7.9 fL (7.6-11.3); RBC Red Blood Cell Count 4.16 M/uL (3.86-4.86)
[2021-11-21 00:32] LABS: Potassium 4.6 mmol/L (3.5-5.1)
[2021-11-21] MEDS ORDERED: HYDROCODONE/APAP 5/325 MG TAB ONE (00:56)
[2021-11-21] MEDS ORDERED: Ringers Lactate 1,000 ML IV ONE (00:56)
[2021-11-21 01:33] LABS: Blood Morphology Comment NOTED (NOT SEEN); Platelet Estimate ADEQ; Polychromasia 1+
--- NOTE | 2021-11-21 03:40 | ER ---
Nurse's Notes [facility] Name: Nancie Ordonez Age: 50 yrs Sex: Female : 1970 Arrival Date: 11/20/2021 Time: 21:34 Bed 13 Private MD: Diagnosis: Chest pain, unspecified;Leukocytosis Presentation: 11/20 21:44 Chief complaint: Patient states: Chest pain since . Today the pain got worse. ld1 Coronavirus screen: At this time, the client does not indicate any symptoms associated with coronavirus-19. Ebola Screen: No symptoms or risks identified at this time. Initial Sepsis Screen: Does the patient meet any 2 criteria? No. Patient's initial sepsis screen is negative. Does the patient have a suspected source of infection? No. Patient's initial sepsis screen is negative. Risk Assessment: Do you want to hurt yourself or someone else? Patient reports no desire to harm self or others. Onset of symptoms was November 20, 2021. 21:44 Method Of Arrival: Ambulatory ld1 21:44 Acuity: DEEPALI 3 ld1 21:44 Chief complaint:. ld1 Triage Assessment: 21:44 General: Appears in no apparent distress. comfortable, Behavior is calm, cooperative, ld1 appropriate for age. Pain: Complains of pain in chest Pain does not radiate. Pain currently is 8 out of 10 on a pain scale. Quality of pain is described as throbbing, Pain began suddenly. Neuro: Level of Consciousness is awake, alert, obeys commands, Oriented to person, place, time, situation, Appropriate for age. Cardiovascular: Capillary refill < 3 seconds Patient's skin is warm and dry. Rhythm is sinus tachycardia. Respiratory: Reports shortness of breath Airway is patent Respiratory effort is even, unlabored, Respiratory pattern is regular, symmetrical, Onset: The symptoms/episode began/occurred gradually, the patient has mild shortness of breath. GI: Abdomen is round non-distended. : No signs and/or symptoms were reported regarding the genitourinary system. Derm: No signs and/or symptoms reported regarding the dermatologic system. Musculoskeletal: No signs and/or symptoms reported regarding the musculoskeletal system. 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 - Social history:: Smoking status: Patient denies any tobacco usage or history of. Patient/guardian denies using alcohol. Screenin:05 Abuse screen: Denies threats or abuse. Nutritional screening: No deficits noted. st1 Tuberculosis screening: No symptoms or risk factors identified. Fall Risk None identified. No fall in past 12 months (0 pts). No secondary diagnosis (0 pts). IV access (20 points). Ambulatory Aid- None/Bed Rest/Nurse Assist (0 pts). Gait- Normal/Bed Rest/Wheelchair (0 pts) Mental Status- Oriented to own ability (0 pts). Total Duke Fall Scale indicates No Risk (0-24 pts). Assessment: 23:05 Reassessment: No changes from previously documented assessment. please see triage note. st1 Vital Signs: 21:44 BP 129 / 92; Pulse 97; Resp 18; Temp 98.7(TE); Pulse Ox 96% on R/A; Weight 81.65 kg; ld1 Height 5 ft. 3 in. (160.02 cm); Pain 8/10; 0321 00:05 BP 116 / 73; Pulse 109; Resp 16; Pulse Ox 99% on R/A; st1 03:46 BP 120 / 63; Pulse 74; Resp 16; Pulse Ox 100% on R/A; st1 03 21:44 Body Mass Index 31.89 (81.65 kg, 160.02 cm) ld1 ED Course: 11/20 21:34 Patient arrived in ED. jj6 21:37 Rajesh Hughes DO is Attending Physician. ms3 21:44 Triage completed. ld1 21:44 Arm band placed on right wrist. ld1 22:34 XRAY Chest (1 view) In Process Unspecified. EDMS 23:05 Nat Sandy, NICCI is Primary Nurse. st1 23:14 Patient has correct armband on for positive identification. Placed in gown. Bed in low st1 position. Call light in reach. Side rails up X2. telemetry monitor on. Pulse ox on. NIBP on. Door closed. Warm blanket given. Verbal reassurance given. Head of bed elevated. 11/21 00:05 CBC with Diff Sent. st1 00:05 Troponin HS Sent. st1 00:05 D-Dimer Sent. st1 00:05 Basic Metabolic Panel Sent. st1 00:05 Inserted saline lock: 20 gauge in right antecubital area, using aseptic technique. st1 00:22 DDimer 679 critical lab reported to Dr. Hughes. st1 02:49 CT Chest For PE Angio In Process Unspecified. EDMS 03:48 No provider procedures requiring assistance completed. IV discontinued, intact, st1 bleeding controlled, No redness/swelling at site. Pressure dressing applied. Administered Medications: 00:30 Drug: Lactated Ringers Solution 1000 ml Route: IV; Rate: 500 bolus; Site: left forearm; st1 03:47 Follow up: Response: No adverse reaction; IV Intake: 500ml st1 00:51 Drug: HYDROcodone-acetaminophen 5 mg-325 mg 1 tabs Route: PO; st1 01:45 Follow up: Response: No adverse reaction; Pain is decreased st1 Intake: 03:47 IV: 500ml; Total: 500ml. st1 Outcome: 03:40 Discharge ordered by MD. ms3 03:48 Discharged to home via wheelchair, with family. st1 03:48 Condition: good 03:48 Discharge instructions given to patient, Instructed on discharge instructions, follow up and referral plans. Demonstrated understanding of instructions, follow-up care. 03:58 Patient left the ED. st1 Signatures: Dispatcher [employer] EDGA Rajesh Hughes DO DO ms3 Thalia Hooper, RN RN ld1 Alisha [email or web address] Nat Sandy, RN RN st1 Corrections: (The following items were deleted from the chart) 11/20 21:47 21:44 Chief complaint: Patient states: Chest pain X 1 day - ld1 ld1
--- NOTE | 2021-11-21 03:40 | EDPHYS ---
Physician Documentation [facility] Name: Nancie Ordonez Age: 50 yrs Sex: Female : 1970 Arrival Date: 11/20/2021 Time: 21:34 Bed 13 Private MD: ED Physician Rajesh Hughes HPI: 11/20 22:33 This 50 yrs old Black Female presents to ER via Ambulatory with complaints of Shortness ms3 Of Breath, Chest Tightness. 22:33 Onset: The symptoms/episode began/occurred 3 day(s) ago. Duration: The symptoms are ms3 continuous. The patient's shortness of breath has no apparent modifying factors. Associated signs and symptoms: Pertinent positives: chest pain, SOB. Severity of symptoms: At their worst the symptoms were moderate in the emergency department the symptoms are unchanged. 50-year-old female with past medical history of arthritis, GERD, gout, hypertension presents for chest pain has been ongoing for 3 days associated with diaphoresis and shortness of breath. Patient states she has a history of pneumonia. Patient states her pain is a 10/10 described as being sharp. Patient denies alleviating or inciting factors. Patient denies nausea or vomiting. 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 - Social history:: Smoking status: Patient denies any tobacco usage or history of. Patient/guardian denies using alcohol. ROS: 22:33 Constitutional: Negative for fever, and chills. Neck: Negative for injury, pain, and ms3 swelling, Abdomen/GI: Negative for abdominal pain, nausea, vomiting, diarrhea, and constipation, MS/Extremity: Negative for injury and deformity, Skin: Negative for injury, rash, and discoloration. 22:33 Cardiovascular: Positive for chest pain. 22:33 Respiratory: Positive for shortness of breath. 22:33 All other systems are negative. Exam: 21:49 ECG was reviewed by the Attending Physician. ms3 22:33 Constitutional: This is a well developed, well nourished patient who is awake, alert, ms3 and in no acute distress. Head/Face: Normocephalic, atraumatic. Eyes: Pupils equal round and reactive to light, extra-ocular motions intact. Lids and lashes normal. Conjunctiva and sclera are non-icteric and not injected. Periorbital areas with no swelling, redness, or edema. Neck: Trachea midline, no cervical lymphadenopathy. Supple, full range of motion without nuchal rigidity, or vertebral point tenderness. No Meningismus. Chest/axilla: Normal chest wall appearance and motion. Nontender with no deformity. Cardiovascular: Regular rate and rhythm with a normal S1 and S2. No gallops, murmurs, or rubs. Normal PMI, no JVD. No pulse deficits. Respiratory: Lungs have equal breath sounds bilaterally, clear to auscultation and percussion. No rales, rhonchi or wheezes noted. No increased work of breathing, no retractions or nasal flaring. Abdomen/GI: Soft, non-tender, with normal bowel sounds. No distension or tympany. No guarding or rebound. No evidence of tenderness throughout. Skin: Warm, dry with normal turgor. Normal color with no rashes, no lesions, and no evidence of cellulitis. MS/ Extremity: Pulses equal, no cyanosis. Neurovascular intact. Full, normal range of motion. Psych: Awake, alert, with orientation to person, place and time. Behavior, mood, and affect are within normal limits. Vital Signs: 21:44 BP 129 / 92; Pulse 97; Resp 18; Temp 98.7(TE); Pulse Ox 96% on R/A; Weight 81.65 kg; ld1 Height 5 ft. 3 in. (160.02 cm); Pain 8/10; 11/21 00:05 BP 116 / 73; Pulse 109; Resp 16; Pulse Ox 99% on R/A; st1 03:46 BP 120 / 63; Pulse 74; Resp 16; Pulse Ox 100% on R/A; st1 11/20 21:44 Body Mass Index 31.89 (81.65 kg, 160.02 cm) ld1 Procedures: 02:17 Peripheral line: by aseptic technique a peripheral line was placed in the left left la1 upper arm. MDM: 11/20 22:33 Differential diagnosis: Anemia Myocardial Infarction pneumonia, pulmonary edema, ms3 Pulmonary Embolism. 22:50 Patient medically screened. ms3 11/21 00:34 ED course: Updated patient on positive D dimer and need for CT PE protocol. Patient ms3 understands/ agrees with plan.. 03:41 Data reviewed: vital signs, nurses notes, lab test result(s), radiologic studies, CT ms3 scan, plain films. Data interpreted: Pulse oximetry: on room air is 99 %. Interpretation: normal. Test interpretation: by ED physician or midlevel provider: ECG. Counseling: I had a detailed discussion with the patient and/or guardian regarding: the historical points, exam findings, and any diagnostic results supporting the discharge/admit diagnosis, lab results, radiology results, the need for outpatient follow up, to return to the emergency department if symptoms worsen or persist or if there are any questions or concerns that arise at home. ED course: Patient's white blood count remains EMS previous visits. Discussed improving CT scan of the chest with patient. Patient to follow-up with her primary care physician as discussed. All questions were answered. Return precautions discussed include worsening symptoms, or any other concerns. Understands and agrees with plan. On reevaluation patient is alert and oriented x4, in no apparent distress, nontoxic-appearing, ambulatory in emergency department, speaking full sentences.. 11/20 21:48 Order name: Basic Metabolic Panel; Complete Time: 00:35 ms3 11/20 21:48 Order name: CBC with Diff; Complete Time: 01:34 ms3 11/20 21:48 Order name: D-Dimer; Complete Time: 00:35 ms3 11/20 21:48 Order name: Troponin HS; Complete Time: 00:35 ms3 11/20 21:48 Order name: XRAY Chest (1 view) ms3 11/21 00:20 Order name: Manual Differential; Complete Time: 01:34 EDMS 11/20 21:48 Order name: EKG; Complete Time: 21:49 ms3 11/20 21:48 Order name: Cardiac monitoring; Complete Time: 23:14 ms3 11/20 21:48 Order name: EKG - Nurse/Tech; Complete Time: 22:08 ms3 11/20 21:48 Order name: IV Saline Lock; Complete Time: 00:05 ms3 11/20 21:48 Order name: Labs collected and sent; Complete Time: 00:05 ms3 11/21 00:23 Order name: CT Chest For PE Angio ms3 11/20 21:48 Order name: O2 Per Protocol; Complete Time: 23:14 ms3 11/20 21:48 Order name: O2 Sat Monitoring; Complete Time: 23:14 ms3 EC/20 21:49 Rate is 115 beats/min. Rhythm is regular. Clinical impression: Sinus tachycardia. No ms3 change from previous ECG on July 12, 2021. Interpreted by me. Administered Medications: 11/21 00:30 Drug: Lactated Ringers Solution 1000 ml Route: IV; Rate: 500 bolus; Site: left forearm; st1 03:47 Follow up: Response: No adverse reaction; IV Intake: 500ml st1 00:51 Drug: HYDROcodone-acetaminophen 5 mg-325 mg 1 tabs Route: PO; st1 01:45 Follow up: Response: No adverse reaction; Pain is decreased st1 Disposition: 03:43 Co-signature as Attending Physician, Rajesh Hughes DO. ms3 Disposition Summary: 11/21/21 03:40 Discharge Ordered Location: Home ms3 Problem: new ms3 Symptoms: are unchanged ms3 Condition: Stable ms3 Diagnosis - Chest pain, unspecified ms3 - Leukocytosis ms3 Followup: ms3 - With: Private Physician - When: 1 - 2 days - Reason: Re-evaluation by your physician Discharge Instructions: - Discharge Summary Sheet ms3 - Nonspecific Chest Pain, Adult ms3 Forms: - Medication Reconciliation Form ms3 - Thank You Letter ms3 - Antibiotic Education ms3 - Prescription Opioid Use ms3 Signatures: Dispatcher [employer] EDMS Bhaskar Garcia, SUPERVISOR ELECTRON TUBE PROCESSING-C SUPERVISOR ELECTRON TUBE PROCESSING-[facility] CenterRajesh Carrera DO DO ms3 Thalia Hooper, RN RN ld1 Nat Sandy, RN RN st1 Corrections: (The following items were deleted from the chart) 11/20 22:37 22:33 Constitutional: Negative for fever, and chills. Neck: Negative for injury, pain, ms3 and swelling, Cardiovascular: Negative for chest pain, and palpitations. Respiratory: Negative for shortness of breath, cough, wheezing, and pleuritic chest pain, Abdomen/GI: Negative for abdominal pain, nausea, vomiting, diarrhea, and constipation, MS/Extremity: Negative for injury and deformity, Skin: Negative for injury, rash, and discoloration, Psych: Negative for depression, anxiety, suicide ideation, homicidal ideation, and hallucinations, ms3
[2021-11-21 05:37] VITALS: TEMP 98.7
[2021-11-21 05:40] VITALS: BP 120/63; O2SAT 100
--- NOTE | 2021-11-21 08:20 | EKG ---
Test Date: 2021-11-20 Test Time: 21:49:19 Panel Wirer: ISAAC MEASUREMENT RESULTS: Intervals: Rate: 115 NV: 128 QRSD: 68 QT: 314 QTc: 434 [place]: P: 73 NV: 128 QRS: 79 T: 262 INTERPRETIVE STATEMENTS: Sinus tachycardia Biatrial enlargement T wave abnormality, consider inferior ischemia T wave abnormality, consider anterolateral ischemia Abnormal ECG Compared to ECG 11/15/2021 22:33:57 No significant changes Electronically Signed On 11-21-21 08:19:26 CDT by Drake Blakely
--- NOTE | 2021-11-21 13:18 | RAD REPORT ---
EXAM DESCRIPTION: RAD - Chest Single View - 11/20/2021 10:35 pm CLINICAL HISTORY: 50 years, Female, CHEST PAIN COMPARISON: 11/15/2021 FINDINGS: Single view of the chest was obtained portable. Prior films were compared. The lung volume is slightly decreased. Again there is elevation of the right hemidiaphragm with compressive atelecta tic changes. The cardiomediastinal silhouette demonstrate to be unremarkable. The heart is not enla rged. The thoracic aorta is mildly tortuous. Costophrenic angles are sharp. No areas of consolidati on or masses are seen. Again there is intervertebral disc spacer lower cervical spine. The rest of the soft tissue and bony structures demonstrate to be unremarkable. IMPRESSION: Low lung volume with compressive atelectatic changes right lung base. No focal areas of acute airspace disease Electronically signed by: Dylon Luciano MD 11/20/2021 11:13 PM CDT Due to temporary technical issues with the PACS/Fluency reporting system, reports are being signed by the in house radiologist without review as a courtesy to ensure prompt reporting. The interpreting r adiologist is fully responsible for the content of the report.
--- NOTE | 2021-11-21 13:24 | RAD REPORT ---
EXAM DESCRIPTION: CT - Chest For Pe Angio - 11/21/2021 4:35 am CLINICAL HISTORY: 50 years, Female, CHEST PAIN COMPARISON: 11/04/2021 TECHNIQUE: Multiple transaxial tomograms of the chest were obtained from the lung apices through the lung bases utilizing 2 mm slice thickness at 2 mm interval reconstruction after the administration o f large bolus of IV contrast for complete opacification of the pulmonary arteries. Subsequent 3-D maximum intensity projection images were generated in the coronal and sagittal plane f or review. This exam was performed according to our departmental dose-optimization protocol, which includes auto mated exposure control, adjustment of the mA and/or kV according to patient size and/or use of iterat lloyd reconstruction technique. FINDINGS: The lungs parenchyma demonstrate minimal dependent atelectatic changes lung mid/lower lung zones. Elevation of the right hemidiaphragm with compressive atelectatic changes. Previous described groundglass densities have improved. The lung volume is decreased. No masses, nodules and/or consoli dations are identified. The trachea mainstem bronchus demonstrate to be normal. There is no significant pericardial or pleura l effusions. The thoracic aorta demonstrate to be within normal limits. No evidence for significant dissection and /or aneurysm. The heart is normal in size. No evidence for right ventricular strain. There are no sig nificant coronary artery calcifications. There is no significant mediastinal and/or hilar lymphadenopathy. The axillary regions demonstrate to be clear. Pulmonary arteries demonstrate to be normal, no intraluminal defect are seen that would suggest pulmo nary embolus. The bone windows demonstrate no significant skeletal lesions. The visualized portions of the upper abdomen demonstrate elevation of the right hemidiaphragm with si gnificant portions hepatic lobe within the lower chest cavity. IMPRESSION: No evidence for pulmonary embolism or significant dissection. Elevation of the right hemidiaphragm with compressive atelectatic changes. Previous described groundglass densities have decreased-improved. . Electronically signed by: Dylon Luciano MD 11/21/2021 3:30 AM CDT Due to temporary technical issues with the PACS/Fluency reporting system, reports are being signed by the in house radiologist without review as a courtesy to ensure prompt reporting. The interpreting r adiologist is fully responsible for the content of the report.
== END 2021-11-21 03:58 | disposition home or self-care (01) ==
LOC: ER 21:31
DX: R07.9 Chest pain, unspecified (principal); D72.829 Elevated white blood cell count, unspecified; I10 Essential (primary) hypertension; Z88.6 Allergy status to analgesic agent
CPT/HCPCS: 93005; 85025; 80048; 36415; 85379; 84484; 71275; 71045; 99284; Q9967; J7120

== ENCOUNTER 2021-12-30 20:06 | Emergency (ER) | payer OTHER ==
[2021-12-30] MEDS ORDERED: IPRATROPIUM BROM 0.5MG/2.5ML ONE (20:38)
[2021-12-30] MEDS ORDERED: LEVALBUTEROL 1.25 MG/3 ML NEB ONE (20:38)
--- OUTSIDE RECORDS SUMMARY | 2021-12-30 20:43 | XMS REPORT | Continuity of Care Document ---
:1970 Author Organization [facility] t Address Critical access hospital[address] [place] [address] Care Team Providers Name Role Phone [facility] Primary Care Physician Unavailable DR RAKESH Attending Clinician Unavailable Una GRAJEDA, M Attending Clinician MARY Attending Clinician Unavailable Guy YI Attending Clinician Wilmer YI S Attending Clinician Mary YI Attending Clinician MICHEL Attending Clinician Unavailable Jonh Brush MD Attending Clinician Michel JIMENEZ Attending Clinician Doctor Unassigned, Name Attending Clinician Unavailable Chapin PAUL Attending Clinician Evelin GRAJEDA, L Attending Clinician Unavailable REHANA Attending Clinician Unavailable Ilan YI Attending Clinician Josie YI Attending Clinician Tal YI Attending Clinician Rehana YI Attending Clinician Sunday Olivarez MD Attending Clinician DR RAKESH Admitting Clinician Unavailable MARY Admitting Clinician Unavailable Mary YI Admitting Clinician TEQWIMTANVIR Admitting Clinician Unavailable Teqwimtanvir DO Admitting Clinician TAL Admitting Clinician Unavailable Tal YI Admitting Clinician Payers Payer Name Policy Type Policy Number Effective Date Expiration Date Anjum Casillas1 [id number] 1959 00:00:00 Problems Condition Condition Condition Status Onset Resolution Last Treating Co mments Source Name Details Category Date Date Treatment Clinician Date Pneumonia Pneumonia Disease Active Uni vers 4-04 ity of 00:00: [place] 00 Medical Branch Acute Acute Disease Active Univers asthma asthma 4-02 ity [place] exacerb[place] Sepsis Sepsis Disease Active [facility] 3-09 [place]y [...] [place] failure [place] failure 00 [facility] Branch Depo-Prove Depo-Prove Disease Active U nivers ra ra 4-13 ity of contracept contracept [place] lloyd status [place]oyd status 00 Fl dical Branch Allergies, Adverse Reactions, Alerts Allergy Allergy Status Severity Reaction(s) Onset Inactive Treating Comm ents Source Name Type Date Date Clinician SEAFOOD/ Food Active High Anaphylaxis Uni vers FISH 4-02 ity of 00:00: [place] 00 Medical Branch Seafood/ Food Active Anaphylaxis Pts Uni vers Fish Allergy 4-02 tongue ity of 00:00: swells/ [place] 00 difficult Medical y Branch breathing NSAIDS Drug Active Unknown-Cmnt Univ ers (NON-MADAN [...] SDOH University o f Alcohol Std Drinks [place] [facility] History SDOH University o f Alcohol Binge [place] [facility] al Branch Exposure to Not sure University of SARS-CoV-2 (event) [place] [facility] History SDID University o f Alcohol Frequency [facility] Branch Alcohol intake 2021-12-05 2021-12-05 Current drinker Unive rsity of 00:00:00 00:00:00 of alcohol [place] [facility] (finding) Branch Education 2021-10-15 2021-10-15 12 University of 00:00:00 00:00:00 [facility] Tobacco Comment 2021-10-15 2021-10-15 30 years ago Univers ity of 00:00:00 00:00:00 [facility] Alcohol Comment 2016-12-14 2016-12-14 infrequent - Univers ity of 00:00:00 00:00:00 family parties, [place] Med ical wine, 12 oz/time Branch Cigarettes smoked 2016-12-14 2016-12-14 Univers ity of current (pack per 00:00:00 00:00:00 [facility] ) - Reported Branch Cigarette 2016-12-14 2016-12-14 University of pack-years 00:00:00 00:00:00 [facility] Tobacco use and 2016-12-14 2016-12-14 Never used Universit y of exposure 00:00:00 00:00:00 [facility] History of tobacco 2001-12-14 Cigarette Smoker University of use 00:00:00 [facility] Sex Ass[birth year] At [birth year] [facility] y of 00:00:00 00:00:00 [facility] Smoking Status Start Date Stop Date Source Former smoker 2016-12-14 00:00:00 2016-12-14 00:00:00 [facility] Medications Ordered Filled Start Stop Current Ordering Indication Dosage Frequency Signature Comments Components Source Medication Medication Date Date Medication? Clinician (SIG) Name Name celecoxib Yes 100mg Take 100 Uni vers (CELEBREX) 4-06 mg by ity of 100 mg 12:53: mouth 2 [place] capsule 05 (two) Medical times Branch daily with meals. amLODIPine 2021-0 Yes 10mg Take 10 mg U nivers 10 mg 4-06 by mouth ity of tablet 12:53: daily. [address] FLUoxetine 0 Yes 10mg Take 10 mg U nivers 10 mg 4-06 by mouth ity of capsule 12:53: daily. [address] traMADoL 2021-0 Yes 100mg Take 100 Univ ers 100 mg 4-06 mg by ity of capsule 12:53: mouth [place] 05 every 6 Medical (six) Branch hours as needed. celecoxib 0 Yes 100mg Take 100 Uni vers (CELEBREX) 4-06 mg by ity of 100 mg 12:53: mouth 2 [place] capsule 05 (two) Medical times [place] daily with meals. amLODIPine 0 Yes 10mg Take 10 mg U nivers 10 mg 4-06 by mouth ity of tablet 12:53: daily. [address] FLUoxetine 2021-0 Yes 10mg Take 10 mg U nivers 10 mg 4-06 by mouth ity of capsule 12:53: daily. [address] traMADoL 2021-0 Yes 100mg Take 100 Univ ers 100 mg 4-06 mg by ity of capsule 12:53: mouth [place] 05 every 6 Medical (six) Branch hours as needed. predniSONE 2021-0 2021- No 10mg Take 10 mg Univers 10 mg 4-06 04-06 by mouth ity of tablet 10:31: 00:00 daily. [place] 31 :00 [facility] Branch hydrALAZINE 2021-0 2021- No 100mg Take 100 Univers 100 mg 4-06 04-06 mg by ity of tablet 10:31: 00:00 mouth 2 [place] 31 :00 (two) Medical times Branch daily. cefTRIAXone 2021- Yes 2000mg 2,000 mg, Univers (ROCEPHIN) 12-0711 Intravenou it y of injection 05:00: 04:59 s, Q24H [place] 2,000 mg 00 :00 ABX, 5 Medical doses, Branch First dose on Sun12/07/21 at 0000, Last dose on Sun12/11/21 at 0000
Re ason for Anti-Infec tive: Documented Infection< br>Documen britney Infection Site: Respirator y
Durat ion of Therapy: 7 days predniSONE 2021- Yes [id number] Take 2 Univers 10 mg 12-07 tablets by ity of tablet 00:00: 04:59 mouth [place] 00 :00 daily for Medical 5 days, Branch THEN 1 tablet daily for 5 days, THEN 0.5 tablets daily for 5 days. predniSONE 2021- Yes [id number] Take 2 Univers 10 mg 12-07 tablets by ity of tablet 00:00: 04:59 mouth [place] 00 :00 daily for Medical 5 days, Branch THEN 1 tablet daily for 5 days, THEN 0.5 tablets daily for 5 days. azithromyci 2021- Yes [id number] 500mg Take 1 Univers n 500 mg 12-07 tablet by ity o f tablet 00:00: 04:59 mouth [place] 00 :00 daily for Medical 2 days. Branch azithromyci 2021- Yes [id number] 500mg Take 1 Univers n 500 mg 12-07 tablet by ity o f tablet 00:00: 04:59 mouth [place] 00 :00 daily for Medical 2 days. [place] traMADoL Yes 50mg 50 mg, Univers (ULTRAM) 4-05 Oral, ity of tablet 50 16:44: Q6HPRN, [place] mg 28 Starting Medical on Sun12/06/21 at 1144, Until Discontinu ed, Routine, Pain (scale 4-6) ALPRAZolam Yes .5mg 0.5 mg, Univ ers (XANAX) 4-05 Oral, ity of tablet 0.5 16:43: BIDPRN, [place] mg 05 Starting Medical on Sun12/06/21 at 1143, Until Discontinu ed, Routine, anxiety HYDROcodone Yes 1{tbl} 1 tablet, Univers -acetaminop 4-05 Oral, ity of hen (NORCO 16:42: Q6HPRN, [place] 5) 5-325 mg 38 Starting Medi dayna tablet 1 on [facility] tablet 12/06/21 at 1142, Until Discontinu ed, Routine, Pain (scale 7-10) azithromyci 2021- Yes 500mg 500 mg, IV Univers n 4-05 04-08 Piggyback, ity of (ZITHROMAX) 14:45: 14:44 Q24H ABX, [place] 500 mg in 00 :00 3 doses, Medica l NaCl 0.9% First dose Bran ch (NS) 250 mL on [facility] 12/06/21 at IV 0945, Last piggyback dose on [facility] 12/08/21 at 0945, Administer over 60 Minutes, 250 mL
Reas on for Anti-Infec tive: Empiric Therapy for Suspected Infection< br>Empiric Therapy Site: Respirator y
Durat ion of therapy: 72 hours KCL Yes 40meq 40 mEq, Univers (KLOR-CON 4-05 Oral, ity of M20) tablet 14:00: DAILY, [place] 40 mEq 00 First dose Medical on [facility] 12/06/21 at 0900, Until Discontinu ed, Routine enoxaparin Yes 40mg 40 mg, Unive rs (LOVENOX) 4-05 Subcutaneo ity of injection 14:00: us, Q24H, [place] as 40 mg 00 First dose Medical on [facility] 12/06/21 at 0900, Until Discontinu ed, Routine predniSONE 0 Yes 20mg 20 mg, Unive rs (DELTASONE) 4-05 Oral, ity of tablet 20 14:00: DAILY, [place] mg 00 First dose Medical on [facility] 12/06/21 at 0900, Until Discontinu ed, Routine FLUoxetine 0 Yes 20mg 20 mg, Unive rs (PROZAC) 4-05 Oral, ity of capsule 20 14:00: DAILY, [place] mg 00 First dose Medical on [facility] 12/06/21 at 0900, Until Discontinu ed, Routine amLODIPine Yes 5mg 5 mg, Univer s (NORVASC) 12-06 Oral, ity of tablet 5 mg 14:00: DAILY, [place] 00 First dose Medical on [facility] 12/06/21 at 0900, Until Discontinu ed, Routine magnesium Yes 400mg 400 mg, Univ ers oxide 12-06 Oral, BID, ity of (MAG-OX 13:00: First dose [place] 400) tablet 00 on [facility] Medica l 400 mg 12/06/21 at Branch 0800, Until Discontinu ed, Routine ipratropium Yes 3mL 3 [facility]06 Inhalation ity of (DUONEB) 13:00: , QID, [place] 0.5 mg-3 00 First dose Medic al mg(2.5 mg on [facility] base)/3 mL 12/06/21 at nebulizer 0800, solution 3 Until mL Discontinu ed, Routine lactobacill Yes .5mg 0.5 mg, Uni vers us 12-06 Oral, BID, ity of acidophilus 13:00: First dose [place] tablet 0.5 00 on [facility] Medical mg 12/06/21 at Branch 0800, Until Discontinu ed, Routine levoFLOXaci No 750mg 750 mg, IV Univers n in D5W 12-06 Piggyback, ity of (LEVAQUIN) 09:30: 13:39 Q24H ABX, [place] 750 mg/150 00 :25 First dose Med ical mL on [facility] Piggyback 12/06/21 at 750 mg 0430, Until Discontinu ed, Administer over 90 Minutes, 150 mL
Reas on for Anti-Infec tive: Empiric Therapy for Suspected Infection< br>Empiric Therapy Site: Respirator y
Durat ion of therapy: 7 days
Re stricted use approved by: [employer] PROVIDER traMADoL No 50mg 50 mg, Univer s (ULTRAM) 12-06 Oral, ity of tablet 50 08:14: 16:44 Q6HPRN, [place] mg 42 :40 Starting Medical on Sun Branch 12/06/21 at 0314, Until Sun12/06/21 at 1144, Routine, Pain (scale 7-10) HYDROcodone 2021- No 1{tbl} 1 tablet, [facility] -acetaminop 12-06 04-05 Oral, ity of hen (NORCO) 06:00: 04:59 ONCE, 1 [place] 10-325 mg 00 :00 dose, On Medica l tablet 1 Sun12/06/21 Branc h tablet at 0100, Routine fluticasone Yes 1{puff} 1 Puff, [facility] propion-lavon 12-05 Inhalation it y of meteroL 13:00: , Q12H, [place] (ADVAIR) 00 First dose Medic al 250-50 on Sun mcg/dose 12/05/21 at inhalation 0800, disk 1 Puff Until Discontinu ed, Routine lurasidone 2021- No Take by Un guillermina HCl (LATUDA 12-05-04 mouth. ity o f ORAL) 05:43: 00:00 [place] 55 :00 Medical Branch acetylcyste 2021- Yes 4mL 800 mg (4 Univers ine 12-05 04-07 mL), ity of (MUCOMYST) 05:00: 04:59 Inhalation [place] 200 mg/mL 00 :00 , Q6H, 12 Medic al (20 %) doses, Branch solution First dose 800 mg on Sun12/05/21 at 0000, Last dose on Sun12/07/21 at 1800, Routine cefTRIAXone Yes 1000mg 1,000 mg, [facility] (ROCEPHIN) 04 IV ity of 1,000 mg in 03:00: Piggyback, [place] NaCl 0.9% 00 Q24H ABX, Medic al (NS) 50 mL First dose Bra inh MINI-BAG on Sun12/04/21 at 2200, Until Discontinu ed, Administer over 30 Minutes, 50 mL
Reas on for Anti-Infec tive: Empiric Therapy for Suspected Infection< br>Empiric Therapy Site: Respirator y
Durat ion of therapy: 72 hours ipratropium Yes 3mL 3 mL, Unive rs -albuteroL 04 Inhalation ity of (DUONEB) 02:00: , Q6HPRN, [place] 0.5 mg-3 00 Starting Medical mg(2.5 mg on Sun Branch base)/3 mL 12/04/21 at nebulizer 2100, solution 3 Until mL Discontinu ed, Routine, Wheezing methylpredn Yes 60mg 60 mg, Univ ers isolone sod 4- Slow IV ity o f succ 02:00: Push, [place] (SOLU-MEDRO 00 Q12H, Medical L) First dose Branch injection on Sun 60 mg 12/04/21 at 2100, Until Discontinu ed, Routine HYDROcodone Yes 1{tbl} 1 tablet, Univers -acetaminop 12-05 Oral, ity of hen (NORCO) 01:55: Q6HPRN, [place] as 10-325 mg 51 Starting Medica l tablet 1 on Sun Branch tablet 12/04/21 at 2055, Until Discontinu ed, Routine, Pain (scale 4-6) iopamidol 2021- No [id number] 100mL 100 mL, Univers (ISOVUE 12-04- Intravenou ity o f 370-500 mL) 20:43: 20:43 s, ONCE, 1 [place] injection 00 :00 dose, On Medica l 100 mL 12/04/21 Branch at 1600, Routine enoxaparin Yes 40mg 40 mg, Unive rs (LOVENOX) 12-04 Subcutaneo ity of injection 14:00: [place], DAILY, [place] 40 mg 00 First dose Medical on Sun Branch 12/04/21 at 0900, Until Discontinu ed, Routine amLODIPine Yes 5mg 5 mg, Univer s (NORVASC) 12-04 Oral, ity of tablet 5 mg 14:00: DAILY, [place] 00 First dose Medical on [place] Branch 12/04/21 at 0900, Until Discontinu ed, Routine predniSONE 2021- No 20mg 20 mg, Univ ers (DELTASONE) 12-04 04- Oral, ity of tablet 20 14:00: 01:54 DAILY, [place] mg 00 :23 First dose Medical on Sun Branch 12/04/21 at 0900, Until Discontinu ed, Routine lurasidone 2022-0 Yes 20mg 20 mg, Unive rs (LATUDA) -03 Oral, ity of tablet 20 12:30: QAM-0730, [place] as mg 00 First dose Medical on [facility] 12/04/21 at 0730, Until Discontinu ed doxycycline 2021-0 Yes 100mg 100 mg, Un guillermina hyclate 12-04 Oral, ity of (Vibramycin 11:00: Q12HA2, [place] as ) capsule 00 First dose Medi dayna 100 mg on [facility] 12/04/21 at 0600, Until Discontinu ed, SE
Re ason for Anti-Infec tive: Empiric Therapy for Suspected Infection< br>Empiric Therapy Site: Respirator y
Du ration of therapy: 7 days NaCl 0.9% 0 202- No 500mL at 100 [facility] ers (NS) IV 12-04 04-03 mL/hr, IV ity of infusion 11:00: 15:59 Infusion, [place] Miguel as 500 mL 00 :00 CONTINUOUS Medical , Starting Branch on [place] 12/04/21 at 0600, Until [place] 12/04/21 at 1059, Routine zolpidem 0 Yes 5mg 5 mg, Univers (AMBIEN) 12-04 Oral, ity of tablet 5 mg 06:14: QHSPRN, [place] as 57 Starting Medical on [facility] 12/04/21 at 0114, Until Discontinu ed, Routine, Insomnia docusate 2021-0 Yes 100mg 100 mg, Unive rs (COLACE) -03 Oral, BID, ity o f capsule 100 01:00: First dose [place] mg 00 on [facility] 12/03/21 at Branch 1999, Until Discontinu ed, Routine busPIRone 0 Yes 5mg 5 mg, Univers (BUSPAR) 12-04 Oral, BID, ity o f tablet 5 mg 01:00: First dose [place] 00 on [facility] 12/03/21 at [place] 1999, Until Discontinu ed, Routine ipratropium 2021-0 2021- No 3mL 3 mL, Univ ers -albuteroL - 04-04 Inhalation it y of (DUONEB) 01:00: 01:56 , QID, [place] 0.5 mg-3 00 :47 First dose Medic al mg(2.5 mg on [facility] Branch base)/3 mL 12/03/21 at nebulizer 2000, solution 3 Until mL Discontinu ed, Routine ondansetron Yes 4mg 4 mg, Slow Univers (ZOFRAN 12-03 IV Push, ity of (PF)) 22:05: Q6HPRN, [place] injection 4 11 Starting Medi dayna mg on [facility] Branch 12/03/21 at 1705, Until Discontinu ed, Routine, Nausea and Vomiting (N/V) HYDROcodone 2021- No 1{tbl} 1 tablet, Univers -acetaminop 12-03 Oral, ity of hen (NORCO 22:05: 01:56 Q6HPRN, [place] as 5) 5-325 mg 07 :02 Starting Medi dayna tablet 1 on [facility] tablet 12/03/21 at 1705, Until 12/04/21 at 2055, Routine, Pain (scale 4-6) acetaminoph Yes 650mg 650 mg, Un guillermina en 12-03 Oral, ity of (TYLENOL) 22:05: Q6HPRN, [place] tablet 650 04 Starting Medic al mg on [facility] Branch 12/03/21 at 1705, Until Discontinu ed, Routine, Pain (scale 1-3) methylpredn No 125mg 125 mg, U nivers isolone sod 12-03 Slow IV ity of succ 21:00: 22:03 Push, ONCE [place] (SOLU-MEDRO 00 :00 NOW, 1 Medica l L) dose, On Branch injection [facility] 12/03/21 125 mg at 1600, SE albuterol 2021- No 2.5mg 2.5 mg, Uni vers (PROVENTIL) 12-03 Inhalation i ty of 2.5 mg /3 21:00: 22:06 , QID, [place] mL (0.083 00 :33 First dose Medi dayna %) on [facility] Branch nebulizer 12/03/21 at solution 1600, 2.5 mg Until Discontinu ed, Routine ipratropium 2021- No .5mg 0.5 mg, Un guillermina (ATROVENT) 12-03 Inhalation it y of 0.02 % 21:00: 22:06 , QID, [place] nebulizer 00 :24 First dose Medi dayna solution on [facility] Branch 0.5 mg 12/03/21 at 1600, Until Discontinu ed, Routine predniSONE 0 Yes 30mg 30 mg, Unive rs (DELTASONE) 3-12 Oral, ity of tablet 30 15:00: DAILY, [place] mg 00 First dose Medical (after Branch last modificati on) on [facility] 11/12/21 at 0900, Until Discontinu ed, Routine piperacilli 0 Yes 3.375g 3.375 g, Univers n-tazobacta 3-11 IV ity of m (ZOSYN) 23:30: [place]back, [place] 3.375 g in 00 Q8H ABX, Medic al NaCl 0.9% First dose Bran ch (NS) 50 mL on Sun MINI-BAG 11/11/21 at 1730, Until Discontinu ed, Administer over 4 Hours, 50 mL
Reas on for Anti-Infec tive: Empiric Therapy for Suspected Infection< br>Empi leandro Therapy Site: Respirator y
Durat ion of therapy: 72 hours lurasidone 2021-0 Yes Take by Uni vers HCl (LATUDA 3-11 mouth. ity of ORAL) 17:32: [address] lurasidone 2021-0 Yes Take by Uni vers HCl (LATUDA 3-11 mouth. ity of ORAL) 17:32: [address] lurasidone 2021-0 Yes Take by Uni vers HCl (LATUDA 3-11 mouth. ity of ORAL) 17:32: [address] KCL 2021-0 2022- No 20meq 20 mEq, Univers (KLOR-CON 3-11 03-11 Oral, ity of M20) tablet 02:00: 02:20 ONCE, 1 [place] 20 mEq 00 :00 dose, On Medical Nicole Branch 11/10/21 at 2000, Routine predniSONE 2021-0 Yes [id number] 20mg Take 1 Univers 20 mg 3-11 tablet by ity of tablet 00:00: mouth [place] 00 daily. [facility] Branch predniSONE 2021-0 Yes [id number] 20mg Take 1 Univers 20 mg 3-11 tablet by ity of tablet 00:00: mouth [place] 00 daily. [facility] predniSONE 2021- No [id number] 20mg Take 1 Univers 20 mg 11-11 tablet by ity of tablet 00:00: 00:00 mouth [place] 00 :00 daily. Medical Branch piperacilli 2021- No 3.375g 3.375 g, Univers n-tazobacta 11-10 IV ity of m (ZOSYN) 22:00: 21:01 [place]gyback, [place] 3.375 g in 00 :00 Q8H ABX, Medic al NaCl 0.9% First dose Bran ch (NS) 100 mL on [facility] VIAL-MATE 11/10/21 at 1600, Until Discontinu ed, Administer over 4 Hours, 100 mL
Reas on for Anti-Infec tive: Empiric Therapy for Suspected Infection< br>Empi leandro Therapy Site: Respirator y
Durat ion of therapy: 72 hours enoxaparin Yes 40mg 40 mg, Unive rs (LOVENOX) 3-10 Subcutaneo ity of injection 15:00: [place], DAILY, [place] 40 mg 00 First dose Medical on [facility] Branch 11/10/21 at 0900, Until Discontinu ed, Routine hydroCHLORO Yes 12.5mg 12.5 mg, Univers thiazide 3-10 Oral, ity of (ESIDRIX) 15:00: DAILY, [place] capsule 00 First dose Medica l 12.5 mg on [facility] Branch 11/10/21 at 0900, Until Discontinu ed, Routine amLODIPine Yes 10mg 10 mg, Unive rs (NORVASC) 3-10 Oral, ity of tablet 10 15:00: DAILY, [place] mg 00 First dose Medical on [facility] Branch 11/10/21 at 0900, Until Discontinu ed, Routine predniSONE 2021- No 40mg 40 mg, Univ ers (DELTASONE) 11-1011 Oral, ity of tablet 40 15:00: 17:05 DAILY, [place] mg 00 :49 First dose Medical on [facility] Branch 11/10/21 at 0900, Until Discontinu ed, Routine docusate Yes 100mg 100 mg, Unive rs (COLACE) 3-10 Oral, BID, ity o f capsule 100 14:00: First dose [place] mg 00 on [facility] Medical 11/10/21 at Branch 0800, Until Discontinu ed, Routine busPIRone 0 Yes 5mg 5 mg, Univers (BUSPAR) 3-10 Oral, BID, ity o f tablet 5 mg 14:00: First dose [place] 00 on [facility] Medical 11/10/21 at Branch 0800, Until Discontinu ed, Routine lurasidone 2021-0 Yes 20mg 20 mg, Unive rs (LATUDA) 3-10 Oral, ity of tablet 20 13:30: QAM-0730, José [place] as mg 00 First dose Medical on [facility] Branch 11/10/21 at 0730, Until Discontinu ed morpHINE 2021-0 Yes 2mg 2 mg, Slow Uni vers injection 2 3-10 IV Push, ity of mg 07:05: Q4HPRN, [place] 58 Starting Medical on [facility] Branch 11/10/21 at 0105, Until Discontinu ed, Routine, Pain (scale 7-10) ondansetron Yes 4mg 4 mg, Slow Univers (ZOFRAN 3-10 IV Push, ity of (PF)) 05:19: Q6HPN, [place] injection 4 35 Starting Medi dayna mg on Sun Branch 11/09/21 at 2319, Until Discontinu ed, Routine, Nausea and Vomiting (N/V) HYDROcodone 2021-2021- Yes 1{tbl} 1 tablet, Univers -acetaminop 3-10 03-12 Oral, ity of hen (NORCO 05:19: 05:18 Q6HPRN, [place] as 5) 5-325 mg 30 :30 Starting Medi dayna tablet 1 on Sun Branch tablet 11/09/21 at 2319, Until 11/11/21 at 2318, Routine, Pain (scale 4-6) acetaminoph 2021-0 Yes 650mg 650 mg, Un guillermina en 3-10 Oral, ity of (TYLENOL) 05:19: Q6HPRN, [place] tablet 650 28 Starting Medic al mg on Sun Branch 11/09/21 at 2319, Until Discontinu ed, Routine, Pain (scale 1-3) albuterol 2021-0 Yes 2{puff} 2 Puff, Un guillermina (VENTOLIN) 3-10 Inhalation ity of inhaler 2 05:17: , Q6HPRN, [place] as Puff 52 Starting Medical on Wed Branch 11/09/21 at 2317, Until Discontinu ed, Routine, Wheezing, Shortness of Breath iopamidol 2021- No [id number] 100mL 100 mL, Univers (ISOVUE 11-10- 17876 Intravenou ity of 370-500 mL) 04:43: 04:44 s, ONCE, 1 [place] injection 00 :00 dose, On Medica l 100 mL Sun11/09/21 Branch at 2300, Routine morpHINE No 4mg 4 mg, Slow Un guillermina injection 4 11-1010 IV Push, ity of mg 03:45: 02:57 ONCE, 1 [place] 00 :00 dose, On Medical Sun11/09/21 Branch at 2145, SE piperacilli 2021- No 3.375g 3.375 g, Univers n-tazobacta 11-10 IV ity of m (ZOSYN) 03:45: 05:33 Piggyback, [place] 3.375 g in 00 :00 ONCE, 1 Medica l NaCl 0.9% dose, On Branch (NS) 50 mL Sun11/09/21 MINI-BAG at 2145, Administer over 30 Minutes, 50 mL
R annia for Anti-Infec tive: Documented Infection< br>Documen britney Infection Site: HEENT
D uration of Therapy: Other (see Comments) NaCl 0.9% 2021- No 1000mL at 999 Uni vers (NS) bolus 11-10-10 mL/hr, ity of infusion 03:45: 05:33 1,000 mL, José Miguel as 1,000 mL 00 :00 IV Medical Infusion, Branch ONCE, 1 dose, On Sun11/09/21 at 2145, SE ondansetron 2021- No 4mg 4 mg, Slow Univers (ZOFRAN 11-10-10 IV Push, ity of (PF)) 03:00: 01:59 ONCE, 1 [place] injection 4 00 :00 dose, On Medi dayna mg Sun11/09/21 Branch at 2100, SE morpHINE 2021-0 2021- No 4mg 4 mg, Slow Un guillermina injection 4 3-10 03-10 IV Push, ity of mg 03:00: 01:58 ONCE, 1 [place] 00 :00 dose, On Medical 11/09/21 Branch at 2100, STAT albuterol 2021-0 Yes 2.5mg 2.5 mg, Univ ers (PROVENTIL) 3-10 Inhalation it y of 2.5 mg /3 02:00: , QID, [place] mL (0.083 00 First dose Medi dayna %) on Sun Branch nebulizer 11/09/21 at solution 2000, 2.5 mg Until Discontinu ed, Routine ipratropium 2021-0 Yes .5mg 0.5 mg, Uni vers (ATROVENT) 3-10 Inhalation ity of 0.02 % 02:00: , QID, [place] nebulizer 00 First dose Medi dayna solution on Sun Branch 0.5 mg 11/09/21 at 2000, Until Discontinu ed, Routine hydroCHLORO 2021-0 Yes [id number] 12.5mg Take 1 Univers thiazide 2-22 capsule by ity o f 12.5 mg 00:00: mouth [place] capsule 00 daily. [facility] Branch hydroCHLORO 2021-0 Yes [id number] 12.5mg Take 1 Univers thiazide 2-22 capsule by ity o f 12.5 mg 00:00: mouth [place] capsule 00 daily. [facility] Branch hydroCHLORO 2021-0 Yes [id number] 12.5mg Take 1 Univers thiazide 2-22 capsule by ity o f 12.5 mg 00:00: mouth [place] capsule 00 daily. [facility] Branch hydroCHLORO 2021-0 Yes [id number] 12.5mg Take 1 Univers thiazide 2-22 capsule by ity o f 12.5 mg 00:00: mouth [place] capsule 00 daily. [facility] Branch hydroCHLORO 2021-0 Yes [id number] 12.5mg Take 1 Univers thiazide 2-22 capsule by ity o f 12.5 mg 00:00: mouth [place] capsule 00 daily. [facility] Branch hydroCHLORO 2021-0 Yes [id number] 12.5mg Take 1 Univers thiazide 2-22 capsule by ity o f 12.5 mg 00:00: mouth [place] capsule 00 daily. [facility] Branch hydroCHLORO 2021-0 Yes [id number] 12.5mg Take 1 Univers thiazide 2-22 capsule by ity o f 12.5 mg 00:00: mouth [place] capsule 00 daily. Medical Branch hydroCHLORO 2021-0 2021- No [id number] 12.5mg Take 1 [facility] thiazide 2-22 04-04 capsule by ity of 12.5 mg 00:00: 00:00 mouth [place] capsule 00 :00 daily. Medical Branch hydroCHLORO 0 2021- No [id number] 12.5mg Take 1 [facility] thiazide 2-22 02-21 capsule by ity of 12.5 mg 00:00: 00:00 mouth [place] capsule 00 :00 daily for Medical 30 days. Branch hydroCHLORO 2021- No [id number] 12.5mg Take 1 [facility] thiazide 2-22 02-21 capsule by ity of 12.5 mg 00:00: 00:00 mouth [place] capsule 00 :00 daily for Medical 30 days. Branch lurasidone Yes Take by Uni vers HCl (LATUDA 2-21 mouth. ity of ORAL) 17:53: [address] lurasidone Yes Take by Uni vers HCl (LATUDA 2-21 mouth. ity of ORAL) 17:53: [address] lurasidone Yes Take by Uni vers HCl (LATUDA 2-21 mouth. ity of ORAL) 17:53: [address] lurasidone Yes Take by Uni vers HCl (LATUDA 2-21 mouth. ity of ORAL) 10:59: [address] Branch zolpidem 2021- No 5mg 5 mg, Univers (AMBIEN) -24 10-21 Oral, ity of tablet 5 mg 04:00: 03:07 ONCE, 1 [place] :[place] dose, On Medical Sun Branch 10/23/21 at 2200, Routine docusate Yes [id number] 100mg Take 1 U nivers 100 mg 2-21 capsule by ity of capsule 00:00: mouth 2 (two) Medical times Branch daily. busPIRone 5 Yes [id number] 5mg Take 1 Univers mg tablet 2-21 tablet by ity o f 00:00: mouth 2 (two) Medical times Branch daily. chlorhexidi 2021-0 Yes [id number] 15mL [place] and Univers ne 0.12 % 2-21 spit out ity of mouthwash 00:00: 15 mL 2 (two) Medical times Branch daily. albuterol 2021-0 Yes [id number] 2{puff} Inhale 2 Univers 90 2-21 Puffs ity of mcg/actuati 00:00: every 6 [place] on inhaler 00 (six) Medical hours as Branch needed for Wheezing or Shortness of Breath. predniSONE 2-0 Yes [id number] 40mg Take 2 Univers 20 mg 2-21 tablets by ity of tablet 00:00: mouth daily. Medical Branch docusate 2021-0 Yes [id number] 100mg Take 1 U nivers 100 mg 2-21 capsule by ity of capsule 00:00: mouth (two) Medical times Branch daily. busPIRone 5 2021-0 Yes [id number] 5mg Take 1 Univers mg tablet 2-21 tablet by ity o f 00:00: mouth (two) Medical times Branch daily. chlorhexidi 2021-0 Yes [id number] 15mL Swish and Univers ne 0.12 % 2-21 spit out ity of mouthwash 00:00: 15 mL (two) Medical times Branch daily. albuterol 2021-0 Yes [id number] 2{puff} Inhale 2 Univers 90 2-21 Puffs ity of mcg/actuati 00:00: every 6 [place] on inhaler 00 (six) Medical hours as Branch needed for Wheezing or Shortness of Breath. predniSONE 2-0 Yes [id number] 40mg Take 2 Univers 20 mg 2-21 tablets by ity of tablet 00:00: mouth daily. Medical Branch docusate 2-0 Yes [id number] 100mg Take 1 U nivers 100 mg 2-21 capsule by ity of capsule 00:00: mouth (two) Medical times Branch daily. busPIRone 5 2-0 Yes [id number] 5mg Take 1 Univers mg tablet 2-21 tablet by ity o f 00:00: mouth (two) Medical times Branch daily. chlorhexidi 2-0 Yes [id number] 15mL Swish and Univers ne 0.12 % 2-21 spit out ity of mouthwash 00:00: 15 mL 2 (two) Medical times Branch daily. albuterol 2021-0 Yes [id number] 2{puff} Inhale 2 Univers 90 2-21 Puffs ity of mcg/actuati 00:00: every 6 [place] on inhaler 00 (six) Medical hours as Branch needed for Wheezing or Shortness of Breath. predniSONE 2021-0 Yes [id number] 40mg Take 2 Univers 20 mg 2-21 tablets by ity of tablet 00:00: mouth daily. Medical Branch docusate 2021-0 Yes [id number] 100mg Take 1 U nivers 100 mg 2-21 capsule by ity of capsule 00:00: mouth (two) Medical times Branch daily. busPIRone 5 2021-0 Yes [id number] 5mg Take 1 Univers mg tablet 2-21 tablet by ity o f 00:00: mouth (two) Medical times Branch daily. chlorhexidi 2021-0 Yes [id number] 15mL Swish and Univers ne 0.12 % 2-21 spit out ity of mouthwash 00:00: 15 mL 2 (two) Medical times Branch daily. albuterol 2021-0 Yes [id number] 2{puff} Inhale 2 Univers 90 2-21 Puffs ity of mcg/actuati 00:00: every 6 [place] on inhaler 00 (six) Medical hours as Branch needed for Wheezing or Shortness of Breath. docusate 2021-0 Yes [id number] 100mg Take 1 U nivers 100 mg 2-21 capsule by ity of capsule 00:00: mouth (two) Medical times Branch daily. albuterol 2021-0 Yes [id number] 2{puff} Inhale 2 Univers 90 2-21 Puffs ity of mcg/actuati 00:00: every 6 [place] on inhaler 00 (six) Medical hours as Branch needed for Wheezing or Shortness of Breath. busPIRone 5 2021-0 Yes [id number] 5mg Take 1 Univers mg tablet 2-21 tablet by ity o f 00:00: mouth (two) Medical times Branch daily. chlorhexidi 2022-0 Yes [id number] 15mL Swish and Univers ne 0.12 % 2-21 spit out ity of mouthwash 00:00: 15 mL 2 [place] (two) Medical times Branch daily. docusate 2-0 Yes [id number] 100mg Take 1 U nivers 100 mg 2-21 capsule by ity of capsule 00:00: mouth [place] (two) Medical times Branch daily. busPIRone 5 2021-0 Yes [id number] 5mg Take 1 Univers mg tablet 2-21 tablet by ity o f 00:00: mouth (two) Medical times Branch daily. chlorhexidi 2021-0 Yes [id number] 15mL Swish and Univers ne 0.12 % 2-21 spit out ity of mouthwash 00:00: 15 mL 2 [place] (two) Medical times Branch daily. albuterol 2021-0 Yes [id number] 2{puff} Inhale 2 Univers 90 2-21 Puffs ity of mcg/actuati 00:00: every 6 [place] on inhaler 00 (six) Medical hours as Branch needed for Wheezing or Shortness of Breath. docusate 2021-0 Yes [id number] 100mg Take 1 U nivers 100 mg 2-21 capsule by ity of capsule 00:00: mouth [place] (two) Medical times Branch daily. busPIRone 5 2021-0 Yes [id number] 5mg Take 1 Univers mg tablet 2-21 tablet by ity o f 00:00: mouth [place] (two) Medical times Branch daily. chlorhexidi 2021-0 Yes [id number] 15mL Swish and Univers ne 0.12 % 2-21 spit out ity of mouthwash 00:00: 15 mL 2 [place] (two) Medical times Branch daily. albuterol 2-0 Yes [id number] 2{puff} Inhale 2 Univers 90 2-21 Puffs ity of mcg/actuati 00:00: every 6 [place] on inhaler 00 (six) Medical hours as Branch needed for Wheezing or Shortness of Breath. docusate 2-0 2022- No [id number] 100mg Take 1 [facility] 100 mg 2-21 04-04 capsule by ity of capsule 00:00: 00:00 mouth [place] 00 :00 (two) Medical times Branch daily. busPIRone 5 2021- No [id number] 5mg Take 1 Univers mg tablet 10-24- tablet by ity of 00:00: 00:00 mouth 2 [place] 00 :00 (two) Medical times Branch daily. chlorhexidi 2021- No [id number] 15mL Swish and Univers ne 0.12 % 10-24 spit out ity o f mouthwash 00:00: 00:00 15 [place] 2 [place] 00 :[place] (two) Medical times Branch daily. albuterol 2021- No [id number] 2{puff} Inhale 2 Univers 90 10-24- Puffs ity of mcg/actuati 00:00: 00:00 every 6 [place] inhaler 00 :00 (six) Medical hours as Branch needed for Wheezing or Shortness of Breath. predniSONE 2021- Yes [id number] 40mg Take 2 Univers 20 mg -21 11-24 tablets by ity of tablet 00:00: 04:59 mouth [place] 00 :00 daily for Medical 30 days. Branch predniSONE 2021- No [id number] 40mg Take 2 Univers 20 mg 2-21 [...] [id number] 1{tbl} Take 1 U nivers en-codeine 2-24 10-27 tablet by ity of 300-30 mg 00:00: [...] s: acute pain busPIRone 5 2021- No [id number] 5mg Take 1 Univers mg tablet 10-24- tablet by ity of 00:00: 00:00 mouth 2 [place] 00 :00 (two) Medical times Branch daily for 30 days. chlorhexidi 2021- No [id number] 15mL Swish and Univers ne 0.12 % 10-24 spit out ity o f mouthwash 00:00: 00:00 15 mL 2 [place] 00 :[place] (two) Medical times Branch daily for 7 days. albuterol 2021- No [id number] 2{puff} Inhale 2 Univers 90 10-24- Puffs ity of mcg/actuati 00:00: 00:00 every 6 [place] on inhaler 00 :00 (six) Medical hours as Branch needed for Wheezing or Shortness of Breath. predniSONE 2021- No [id number] 40mg Take 2 Univers 20 mg 10-24- tablets by ity of tablet 00:00: 00:00 mouth [place] 00 :00 daily for Medical 30 days. Branch busPIRone 5 2021- No [id number] 5mg Take 1 Univers mg tablet 10-24 tablet by ity of 00:00: 00:00 mouth 2 [place] 00 :00 (two) Medical times Branch daily for 30 days. chlorhexidi 2021- No [id number] 15mL Swish and Univers ne 0.12 % 10-24 spit out ity o f mouthwash 00:00: 00:00 15 mL 2 [place] 00 :[place] (two) Medical times Branch daily for 7 days. phenoL Yes 1{spray 1 [place], Univ ers (SORE 2-20 } Oral, PRN, ity of THROAT 19:03: Starting [place] (PHENOL)) 59 on Sun Medical 1.4 % spray 10/23/21 at Br anch bottle 1 1303, [place] Until Discontinu ed, Routine, Sore throat phenoL 2021-0 Yes 1{spray 1 [place], Univ ers (SORE 2-20 } Oral, PRN, ity of THROAT 19:03: Starting [place] (PHENOL)) 59 on Sun Medical 1.4 % spray 10/23/21 at Br anch bottle 1 1303, [place] Until Discontinu ed, Routine, Sore throat zolpidem 2021-0 2022- No 5mg 5 mg, Univers (AMBIEN) -20 -20 Oral, ity of tablet 5 mg 04:00: 03:54 ONCE, 1 [place] 00 :[place] dose, On Medical Sat Branch 10/22/21 at 2200, Routine methylpredn 2021-0 Yes 125mg 125 mg, Un guillermina isolone sod 2-19 Intravenou it y of succ 20:00: s, Q8H, [place] (SOLU-MEDRO 00 First dose Me dical L) (after Branch injection last 125 mg modificati on) on 10/22/21 at 1400, Until Discontinu ed, Routine methylpredn 2022-0 Yes 125mg 125 mg, Un guillermina isolone sod 2-19 Intravenou it y of succ 20:00: s, Q8H, [place] (SOLU-MEDRO 00 First dose Me dical L) (after Branch injection last 125 mg modificati on) on 10/22/21 at 1400, Until Discontinu ed, Routine hydroCHLORO 2022-0 Yes 12.5mg 12.5 mg, Univers thiazide 2-19 Oral, ity of (ESIDRIX) 15:30: DAILY, [place] capsule 00 First dose Medica l 12.5 mg on Sat Branch 10/22/21 at 0930, Until Discontinu ed, Routine amLODIPine 2021-0 Yes 10mg 10 mg, Unive rs (NORVASC) 2-19 Oral, ity of tablet 10 15:30: DAILY, [place] mg 00 First dose Medical on Sat Branch 10/22/21 at 0930, Until Discontinu ed, Routine hydroCHLORO 2022-0 Yes 12.5mg 12.5 mg, Univers thiazide 2-19 Oral, ity of (ESIDRIX) 15:30: DAILY, [place] capsule 00 First dose Medica l 12.5 mg on Sat Branch 10/22/21 at 0930, Until Discontinu ed, Routine amLODIPine 2021-0 Yes 10mg 10 mg, Unive rs (NORVASC) 2-19 Oral, ity of tablet 10 15:30: DAILY, [place] mg 00 First dose Medical on [facility] Branch 10/22/21 at 0930, Until Discontinu ed, Routine acetaminoph 2021-0 Yes 650mg 650 mg, Un guillermina en - Oral, ity of (TYLENOL) 09:54: Q6HPRN, [place] tablet 650 49 Starting Medic al mg on [facility] Branch 10/22/21 at 0354, Until Discontinu ed, Routine, Pain (scale 1-3) acetaminoph 2021-0 Yes 650mg 650 mg, Un guillermina en - Oral, ity of (TYLENOL) 09:54: Q6HPRN, [place] tablet 650 49 Starting Medic al mg on [facility] Branch 10/22/21 at 0354, Until Discontinu ed, Routine, Pain (scale 1-3) chlorhexidi 2021-0 Yes 15mL 15 mL, Univ ers ne -19 Oral ity of (PERIDEX) 02:00: (Swish And [...] at 1999, Until Discontinu ed, Routine dexMEDEtomi 2021-0 202- No .2ug/kg 0.2-1.5 Univers dine 200 10-21 [...] 2021- No 5ug/kg/ 5-50 Un guillermina infusion 10-21-19 min mcg/kg/min ity of 20:41: 15:22 ?99.8 [...] No 25ug/h 25-200 U nivers (SUBLIMAZE) 10-21 02-19 mcg/hr ity o f STD 2,500 19:53: [...] ty of succ 19:00: 15:22 s, Q6H, [place] (SOLU-MEDRO 00 :22 First dose Me dical [...] ity o f mg/mL) 18:01: on Sun [place] (ADRENALIN) 10/21/21 at Fl dical injection 1201, Branch Until Discontinu ed, Routine, Intra-op EPINEPHrine 2021-0 Yes PRN, Univer s 1:1,000 (1 2-18 Starting ity o f mg/mL) 18:01: on Sun [place] (ADRENALIN) 10/21/21 at Fl dical injection 1201, Branch Until Discontinu ed, [...] Push, ity of (PF)) 17:19: PRN, 1 [place] injection 4 50 dose, Medical mg Starting Branch on Sun10/21/21 at 1119, Until Discontinu ed, Routine, Nausea and Vomiting (N/V), PACU NaCl 0.9% 2021-0 Yes PRN, Univers (NS) 10-21 Starting ity of injection 17:01: on Sun [place] [id number] 10/21/21 at [facility] 1101, Branch Until Discontinu ed, Routine, Intra-op NaCl 0.9% 2021-0 Yes PRN, Univers (NS) 18 Starting ity of injection 17:01: on Sun [place] [address] 10/21/21 at [facility] 1101, Branch Until Discontinu ed, Routine, Intra-op morpHINE 2021-0 Yes 4mg 4 mg, Slow Uni vers injection 4 -17 IV [place], ity of mg 23:22: Q4HPRN, [place] [id number] Starting Medical on [facility] 10/20/21 at 1722, Until Discontinu ed, Routine, Pain (scale 7-10) morpHINE 2021-0 Yes 4mg 4 mg, Slow Uni vers injection 4 -17 IV Push, ity of mg 23:22: Q4HPRN, [place] [address] Starting Medical on [facility] 10/20/21 at 1722, Until Discontinu ed, Routine, Pain (scale 7-10) methylpredn 2021-0 2021- No 125mg 125 mg, U nivers isolone sod 10-20 Intravenou i ty of succ 20:00: 17:53 s, Q8H, [place] (SOLU-MEDRO 00 :24 First dose Me dical L) (after Branch injection last 125 mg modificati on) on [facility] 10/20/21 at 1400, Until Discontinu ed, Routine furosemide 2021-0 2021- No 40mg 40 mg, Univ ers (LASIX) 10-20 Slow IV ity of injection 18:00: 18:19 Push, [place] 40 mg 00 :00 ONCE, 1 Medical dose, On Branch [facility] 10/20/21 at 1200, Routine pantoprazol 2021-0 Yes 40mg 40 mg, Univ ers e 10-20 Oral, ity of (PROTONIX) 16:45: DAILY, [place] EC tablet 00 First dose Medi dayna 40 mg on [facility] 10/20/21 at 1045, Until Discontinu ed, Routine pantoprazol 2022-0 Yes 40mg 40 mg, Univ ers e 2-17 Oral, ity of (PROTONIX) 16:45: DAILY, [place] EC tablet 00 First dose Medi dayna 40 mg on [place] 10/20/21 at 1045, Until Discontinu ed, Routine alum-mag 2021-0 Yes 30mL 30 mL, Univers hydroxide-s 2-17 Oral, ity of imeth 16:37: Q6HPRN, [place] (MAALOX 49 Starting Medical PLUS / on [place] [facility] 1037, 200-200-20 Until mg/5 mL Discontinu suspension ed, 30 mL Routine, Indigestio n alum-mag 0 Yes 30mL 30 mL, Univers hydroxide-s 2-17 Oral, ity of imeth 16:37: Q6HPRN, [place] (MAALOX 49 Starting Medical PLUS / on [facility] MAG[facility]AL [facility]20[facility] 1037, 200-200-20 Until mg/5 mL Discontinu suspension ed, 30 mL Routine, Indigestio n acetaminoph 2021- No 650mg 650 mg, U nivers en 10-20 Oral, ity of (TYLENOL) 16:16: 17:01 Q6HPRN, [place] tablet 650 26 :51 Starting Medic al mg on Sun10/20/21 at 1016, Until Sun10/21/21 at 1101, Routine, Pain (scale 1-3) polyethylen 0 Yes 17g 17 g, Unive rs e glycol 2-17 Oral, ity of 3350 powder 15:00: DAILY, [place] 17 g 00 First dose Medical on [facility] 10/20/21 at 0900, Until Discontinu ed, Routine polyethylen 2021-0 Yes 17g 17 g, Unive rs e glycol 2-17 Oral, ity of 3350 powder 15:00: DAILY, [place] 17 g 00 First dose Medical on [facility] 10/20/21 at 0900, Until Discontinu ed, Routine docusate 0 Yes 100mg 100 mg, Unive rs (COLACE) 2-17 Oral, BID, ity o f capsule 100 02:00: First dose [place] mg 00 on Sun10/19/21 at Branch 2000, Until Discontinu ed, Routine docusate Yes 100mg 100 mg, Unive rs (COLACE) 2-17 Oral, BID, ity o f capsule 100 02:00: First dose [place] mg 00 on Sun10/19/21 at Branch 1999, Until Discontinu ed, Routine hydralAZINE Yes 10mg 10 mg, Univ ers [...] No 5mg 5 mg, Slow Univers lactate 10-1916 IV Push, ity of (HALDOL) 08:42: 08:44 ONCE, 1 [place] injection 5 00 :00 dose, On Medi dayna mg [facility] 10/19/21 at 0245, Routine pantoprazol No 40mg 40 mg, Uni vers e 10-18 Slow IV ity of (PROTONIX) 01:45: 16:42 [place], [place] injection 00 :17 Q24H, Medical 40 mg [...] mg 00 :00 1 dose, On Medical [facility] 10/17/21 at 1230, Routine methylPREDN No 125mg 125 mg, U nivers ISolone 10-17 Slow IV ity of sodium 18:00: 18:28 [place], Q6H, [place] succ[place] 00 :52 First dose Medi day[place] (SOLU-MEDRO on [facility] L) 10/17/21 at injection 1200, 125 [...] [place] mg 00 :38 Starting Medical on [place] 10/17/21 at 1100, Until Sun10/19/21 at 1133, Routine, Anxiety, Agitation ipratropium 2021-0 Yes 3mL 3 mL, Unive rs -albuteroL - Inhalation ity of (DUONEB) 14:00: , Q4H, [place] 0.5 mg-3 00 First dose Medic al mg(2.5 mg on [facility] base)/3 mL 10/17/21 at nebulizer 0800, solution 3 Until mL Discontinu ed, Routine ipratropium 2021-0 Yes 3mL 3 mL, Unive rs -albuteroL 10-17 Inhalation ity of (DUONEB) 14:00: , Q4H, [place] 0.5 mg-3 00 First dose Medic al mg(2.5 mg on [facility] base)/3 mL 10/17/21 at nebulizer 0800, solution 3 Until mL Discontinu ed, Routine lidocaine 2021- No 5mL 5 mL, Univer s 1% (PF) 10-17 Subcutaneo ity o f (XYLOCAINE) 13:45: 13:45 us, ONCE, [place] injection 5 00 :00 1 dose, On Me dical mL [facility] 10/17/21 at 0745, Routine NaCl 0.9% 2021-0 Yes 10mL 10 mL, Univer s (NS) 2-14 Slow IV ity of injection 13:27: [place], PRN, [place] 10 mL 33 Starting Medical on [facility] 10/17/21 at 0727, Until Discontinu ed, Routine, line maintenanc e NaCl 0.9% 2021-0 Yes 10mL 10 mL, Univer s (NS) 2-14 Slow IV ity of injection 13:27: [place], PRN, [place] 10 mL 33 Starting Medical on [facility] 10/17/21 at 0727, Until Discontinu ed, Routine, line maintenanc e haloperidol 2021- No 5mg 5 mg, Slow Univers lactate 10-17 IV Push, ity of (HALDOL) 04:00: 03:03 ONCE, 1 [place] injection 5 00 :00 dose, On Medi dayna mg [facility] 10/16/21 at 2200, Routine busPIRone 2021-0 Yes 5mg 5 mg, Univers (BUSPAR) 2-14 Oral, BID, ity o f tablet 5 mg 02:00: First dose on [facility] 10/16/21 at Branch 2000, Until Discontinu ed, Routine busPIRone 2021-0 Yes 5mg 5 mg, Univers (BUSPAR) 2-14 Oral, BID, ity o f tablet 5 mg 02:00: First dose 00 on [facility] 10/16/21 at Branch 2000, Until Discontinu ed, Routine methylpredn 2021- No 60mg 60 mg, Uni vers isolone sod 10-16 Slow IV ity of succ 23:00: 17:25 [place], Q8H, [place] (SOLU-MEDRO 00 :30 First dose Me dical L) on [facility] injection 10/16/21 at 60 mg 1700, Until Discontinu ed, Routine HYDROcodone 2021- No 1{tbl} 1 tablet, Univers -acetaminop 10-16 Oral, ity of hen (NORCO 19:49: 17:01 Q6HPRN, [place] as 5) 5-325 mg 46 :51 Starting Medi dayna tablet 1 on [place] Branch tablet 10/16/21 at 1349, Until Sun10/21/21 [...] dose Bran ch (NS) 250 mL on [place] VIAL-MATE 10/16/21 at IV 1230, Last piggyback [...] 16:47 [place], [place] 0.5 mg 49 :31 [id number], Medical Starting Branch on 10/15/21 at 1543, Until 10/17/21 at 1047, Routine, Anxiety iopamidol 2021- No [id number] 100mL 100 mL, Univers (ISOVUE 10-15 Intravenou [...] [place] (HUMULIN R) 00 :00 dose, On [facility] dayna injection Sat Branch 10 Units 10/15/21 [...] IV 00 :17 IV Medical Piggyback Piggyback, Bran ch RTU 1,500 Q12H ABX, mg First dose on 10/15/21 at 0400, Until Discontinu ed, Administer over 90 Minutes
Reason for Anti-Infec tive: Documented Infection< br>Documen britney Infection Site: Blood
D uration of Therapy: 7 days ceFEPIme No 1000mg 1,000 mg, U nivers (MAXIPIME) 10-15 IV ity of 1,000 mg in 09:15: 16:12 PiggyWasta, [place] NaCl 0.9% 00 :17 Q12H ABX, Medic al (NS) 50 mL First dose [facility] MINI-BAG on 10/15/21 at 0315, Until Discontinu ed, Administer over 30 Minutes, 50 mL
Reas on for Anti-Infec tive: Documented Infection< br>Documen [place]rit[place] Infection Site: Blood
D uration of Therapy: 7 days ipratropium 0 Yes 3mL 3 mL, Unive [...] 4 mg, Slow Un guillermina injection 4 12 02-16 IV Push, ity of mg 08:04: 17:33 [place]Se[place], [place] 38 :44 Starting Medical on Sat Branch 10/15/21 at 0204, Until Sun10/19/21 at 1133, Routine, Pain (scale 7-10) lurasidone [...] % 00:00: [place] ointment [address] [facility] Yes TK 1 C PO U nivers -hydrochlor 5-24 QAM ity of othiazide 00:00: [place] 37.5-25 mg 00 Medical per capsule [facility] SMILEY EXT AA Univers ne valerate 5-24 BID ity of 0.1 % 00:00: [place] ointment [address] [facility] Yes TK 1 C PO U nivers -hydrochlor 5-24 QAM ity of othiazide 00:00: [place] 37.5-25 mg 00 Medical per capsule [facility] Yes SMILEY EXT AA Univers ne valerate 5-24 BID ity of 0.1 % 00:00: [place] ointment Medical Branch [facility] Yes SMILEY EXT AA Univers ne valerate 5-24 BID ity of 0.1 % 00:00: [place] ointment Medical Branch [facility] Yes TK 1 C PO U nivers -hydrochlor 5-24 QAM ity of othiazide 00:00: [place] 37.5-25 mg 00 Medical per capsule Branch [facility] Yes TK 1 C PO U nivers -hydrochlor 5-24 QAM ity of othiazide 00:00: [place] 37.5-25 mg 00 Medical per capsule [facility] Yes SMILEY EXT AA Univers ne valerate 5-24 BID ity of 0.1 % 00:00: [place] ointment [address] [facility] Yes TK 1 C PO U nivers -hydrochlor 5-24 QAM ity of othiazide 00:00: [place] 37.5-25 mg 00 Medical per capsule [facility] SMILEY EXT AA Univers ne valerate 5-24 BID ity of 0.1 % 00:00: [place] ointment Medical Branch [facility] Yes TK 1 C PO U nivers -hydrochlor 5-24 QAM ity of othiazide 00:00: [place] 37.5-25 mg 00 Medical per capsule [facility] [place] SMILEY EXT AA Univers ne valerate 5-24 BID ity of 0.1 % 00:00: [place] ointment 00 Medical Branch triamterene Yes TK 1 C PO U nivers -hydrochlor 01-24 QAM ity of othiazide 00:00: 37.5-25 mg 00 Medical per capsule Branch betamethaso 2021- No SMILEY EXT AA Univers ne valerate 01-24- BID ity of 0.1 % 00:00: 00:00 [place] ointment 00 :00 Medical Branch triamterene 2021- No TK 1 C PO Univers -hydrochlor 01-24- QAM ity of othiazide 00:00: 00:00 [place] 37.5-25 mg 00 :00 Medical per capsule Branch DEXILANT 60 Yes TK 1 C PO U nivers mg capsule - QD ity of 00:00: [place] 00 Medical Branch DEXILANT 60 Yes TK 1 C PO U nivers mg capsule 05-31 QD ity of 00:00: [place] 00 Medical Branch DEXILANT 60 Yes TK 1 C PO U nivers mg capsule - QD ity of 00:00: [place] 00 Medical Branch DEXILANT 60 Yes TK 1 C PO U nivers mg capsule - QD ity of 00:00: [place] 00 Medical Branch DEXILANT 60 Yes TK 1 C PO U nivers mg capsule -28 QD ity of 00:00: [place] 00 Medical Branch DEXILANT 60 Yes TK 1 C PO U nivers mg capsule -28 QD ity of 00:00: [place] 00 Medical Branch DEXILANT 60 Yes TK 1 C PO U nivers mg capsule -28 QD ity of 00:00: [place] 00 Medical Branch DEXILANT 60 Yes TK 1 C PO U nivers mg capsule -28 QD ity of 00:00: [place] 00 Medical Branch DEXILANT 60 2021- No TK 1 C PO Univers mg capsule 05-31-04 QD ity of 00:00: 00:00 [place] 00 :00 Medical Branch proMETHazin Yes TK 1 T PO U nivers e 25 mg 3-29 Q 12 H PRN ity of tablet 00:00: FOR 30 [place] 00 DAYS [facility] proMETHazin Yes TK 1 T PO U nivers e 25 mg 3-29 Q 12 H PRN ity of tablet 00:00: FOR 30 [facility] proMETHazin Yes TK 1 T PO U nivers e 25 mg 3-29 Q 12 H PRN ity of tablet 00:00: FOR 30 [facility] proMETHazin Yes TK 1 T PO U nivers e 25 mg 3-29 Q 12 H PRN ity of tablet 00:00: FOR 30 [facility] proMETHazin Yes TK 1 T PO U nivers e 25 mg 3-29 Q 12 H PRN ity of tablet 00:00: FOR 30 [facility] proMETHazin Yes TK 1 T PO U nivers e 25 mg 3-29 Q 12 H PRN ity of tablet 00:00: FOR 30 [facility] proMETHazin Yes TK 1 T PO U nivers e 25 mg 3-29 Q 12 H PRN ity of tablet 00:00: FOR 30 [facility] proMETHazin Yes TK 1 T PO U nivers e 25 mg 3-29 Q 12 H PRN ity of tablet 00:00: FOR [facility] proMETHazin 2021- No TK 1 T PO Univers e 25 mg 3-29 04-04 Q 12 H PRN ity o f tablet 00:00: 00:00 FOR 30 00 : [facility] amLODIPine Yes TK 1 T PO Un guillermina 5 mg tablet 3-21 Q NIGHTLY ity of 00:00: [facility] amLODIPine Yes TK 1 T PO Un guillermina 5 mg tablet 3-21 Q NIGHTLY ity of 00:00: [facility] Branch amLODIPine Yes TK 1 T PO Un guillermina 5 mg tablet 3-21 Q NIGHTLY ity of 00:00: [facility] amLODIPine Yes TK 1 T PO Un guillermina 5 mg tablet 3-21 Q NIGHTLY ity of 00:00: [facility] amLODIPine Yes TK 1 T PO Un guillermina 5 mg tablet 3-21 Q NIGHTLY ity of 00:00: Medical Branch amLODIPine 2017 Yes TK 1 T PO Un guillermina 5 mg tablet 3-21 Q NIGHTLY ity of 00:00: Medical Branch amLODIPine 2016- Yes TK 1 T PO Un guillermina 5 mg tablet 3-21 Q NIGHTLY ity of 00:00: [facility] [place] amLODIPine Yes TK 1 T PO Un guillermina 5 mg tablet 3-21 Q NIGHTLY ity of 00:00: [facility] [place] amLODIPine 2016-0 2022- No TK 1 T PO U nivers 5 mg tablet 3-21 04-04 Q NIGHTLY it y of 00:00: 00:00 [place] 00 :00 [facility] [place] HYDROcodone Yes 1{tbl} Take 1 Un guillermina -acetaminop 2-08 tablet by ity of hen 10-325 00:00: mouth. [place] mg tablet 00 [facility] HYDROcodone 2015-2021- No 1{tbl} Take 1 U nivers -acetaminop 2-08 02-21 tablet by it y of [place] 10-325 00:[place]00 [facility] HYDROcodone 2021- No 1{tbl} Take 1 U nivers -acetaminop 2-08 02-21 tablet by it y of [place] 10-325 [place]00 [facility] betamethaso 2012- Yes [id number] Apply to Univers ne 2-13 area(s) ity of dipropionat 00:00: two (2) José Miguel as e 00 times Medical (DIPROLENE) daily. Branch 0.05 % cream betamethaso 2012- Yes [id number] Apply to Univers ne 2-13 area(s) ity of dipropionat 00:00: two (2) José Miguel as e 00 times Medical (DIPROLENE) daily. Branch 0.05 % cream betamethaso 2012-0 Yes [id number] Apply to Univers ne 2-13 area(s) ity of dipropionat 00:00: two (2) José Miguel as e 00 times Medical (DIPROLENE) daily. Branch 0.05 % cream betamethaso 2012- Yes [id number] Apply to Univers ne 2-13 area(s) ity of dipropionat 00:00: two (2) José Miguel as e 00 times Medical (DIPROLENE) daily. Branch 0.05 % cream betamethaso 2013-0 Yes [id number] Apply to [facility] 2-13 area(s) ity of dipropionat 00:00: two (2) José Miguel as e 00 times Medical (DIPROLENE) daily. Branch 0.05 % cream betamethaso 2013-0 Yes [id number] Apply to [facility] ne 2-13 area(s) ity of dipropionat 00:00: two (2) José Miguel as e 00 times Medical (DIPROLENE) daily. Branch 0.05 % cream betamethaso 2013-0 Yes [id number] Apply to [facility] 2-13 area(s) ity of dipropionat 00:00: two (2) José Miguel as e 00 times Medical (DIPROLENE) daily. Branch 0.05 % cream betamethaso 2013-0 Yes [id number] Apply to [facility] 2-13 area(s) ity of dipropionat 00:00: two (2) José Miguel as e 00 times Medical (DIPROLENE) daily. Branch 0.05 % cream betamethaso 2013-0 2021- No [id number] Apply to [facility] 2-13 04-04 area(s) ity of dipropionat 00:00[place] Medical (DIPROLENE) daily. Branch 0.05 % cream Immunizations Ordered Filled Immunization Date Status Comments [facility] e Immunization Name Name SARS-COV-2 COVID-19 2021-03-03 Completed Unive rsity of MODERNA VACCINE 00:00:00 [facility] SARS-COV-2 COVID-19 2021-03-03 Completed Unive rsity of MODERNA VACCINE 00:00:00 [facility] SARS-COV-2 COVID-19 2021-03-03 Completed Unive rsity of MODERNA VACCINE 00:00:00 [facility] SARS-COV-2 COVID-19 2021-03-03 Completed Unive rsity of MODERNA VACCINE 00:00:00 [facility] SARS-COV-2 COVID-19 2021-03-03 Completed Unive rsity of MODERNA VACCINE 00:00:00 [facility] SARS-COV-2 COVID-19 2021-03-03 Completed Unive rsity of MODERNA VACCINE 00:00:00 [place] [facility] SARS-COV-2 COVID-19 2021-03-03 Completed Unive rsity of MODERNA VACCINE 00:00:00 [place] [facility] SARS-COV-2 COVID-19 2021-03-03 Completed Unive rsity of MODERNA VACCINE 00:00:00 [place] [facility] SARS-COV-2 COVID-19 2021-03-03 Completed Unive rsity of MODERNA VACCINE 00:00:00 [place] [facility] SARS-COV-2 COVID-19 2021-03-03 Completed Unive rsity of MODERNA VACCINE 00:00:00 [place] [facility] ical [facility] SARS-COV-2 COVID-19 2021-02-01 Completed Unive rsity of MODERNA VACCINE 00:00:00 [place] [facility] ical [facility] SARS-COV-2 COVID-19 2021-02-01 Completed Unive rsity of MODERNA VACCINE 00:00:00 [place] [facility] SARS-COV-2 COVID-19 2021-02-01 Completed Unive rsity of MODERNA VACCINE 00:00:00 [place] [facility] ical [facility] SARS-COV-2 COVID-19 2021-02-01 Completed Unive rsity of MODERNA VACCINE 00:00:00 [place] [facility] SARS-COV-2 COVID-19 2021-02-01 Completed Unive rsity of MODERNA VACCINE 00:00:00 [place] [facility] SARS-COV-2 COVID-19 2021-02-01 Completed Unive rsity of MODERNA VACCINE 00:00:00 [place] [facility] SARS-COV-2 COVID-19 2021-02-01 Completed Unive rsity of MODERNA VACCINE 00:00:00 [place] [facility] SARS-COV-2 COVID-19 2021-02-01 Completed Unive rsity of MODERNA VACCINE 00:00:00 [place] [facility] SARS-COV-2 COVID-19 2021-02-01 Completed Unive rsity of MODERNA VACCINE 00:00:00 [place] [facility] SARS-COV-2 COVID-19 2021-02-01 Completed Unive rsity of MODERNA VACCINE 00:00:00 [facility] Influenza Virus 2007-07-02 Completed Universit y of Vaccine 00:00:00 [facility] Influenza Virus 2007-07-02 Completed Universit y of Vaccine 00:00:00 [facility] Influenza Virus 2007-07-02 Completed Universit y of Vaccine 00:00:00 [facility] Influenza Virus 2007-07-02 Completed Universit y of Vaccine 00:00:00 [facility] Influenza Virus 2007-07-02 Completed Universit y of Vaccine 00:00:00 [facility] Influenza Virus 2007-07-02 Completed Universit y of Vaccine 00:00:00 [facility] Influenza Virus 2007-07-02 Completed Universit y of Vaccine 00:00:00 [facility] Influenza Virus 2007-07-02 Completed Universit y of Vaccine 00:00:00 [facility] Influenza Virus 2007-07-02 Completed Universit y of Vaccine 00:00:00 [facility] Influenza Virus 2007-07-02 Completed Universit y of Vaccine 00:00:00 [facility] Influenza Virus 2007-07-02 Completed Universit y of Vaccine 00:00:00 [facility] Vital Signs Vital Name Observation Time Observation Value Comments Source Body temperature 2021-12-07 13:30:00 37.17 Carleen [facility] Respiratory rate 2021-12-07 13:30:00 23 /min [facility] Oxygen saturation in 2021-12-07 13:14:00 97 /min [facility] Arterial blood by [facility] Pulse oximetry Branch Systolic blood 2021-12-07 09:00:00 157 mm[Hg] Univer sity of pressure [facility] Diastolic blood 2021-12-07 09:00:00 99 mm[Hg] Unive rsity of pressure [facility] Heart rate 2021-12-07 09:00:00 82 /min Universi ty [facility] Body weight 2021-12-07 08:10:00 95.709 kg [facility] Azlei ty [facility] BMI 2021-12-07 08:10:00 37.38 kg/m2 Universi ty [facility] Body height 2021-12-06 06:30:00 160 cm [facility] Azlei ty [facility] Systolic blood 2021-12-05 09:10:00 126 mm[Hg] Univer sity of pressure [place] [facility] Diastolic blood 2021-12-05 09:10:00 71 mm[Hg] Unive rsity of pressure [place] [facility] Heart rate 2021-12-05 09:10:00 85 /min [facility] [place] [facility] Body temperature 2021-12-05 09:10:00 36.83 Carleen Univ [facility] [place] [facility] Respiratory rate 2021-12-05 09:10:00 18 /min Univ [facility] [place] [facility] Oxygen saturation in 2021-12-05 09:10:00 96 /min University of Arterial blood by [place] [employer] Pulse oximetry Branch Body height 2021-12-03 23:16:00 160 cm [facility] [place] [facility] Body weight 2021-12-03 23:16:00 81.647 kg [facility] [place] [facility] BMI 2021-12-03 23:16:00 31.89 kg/m2 [facility] [place] [facility] Systolic blood 2021-11-11 18:12:00 152 mm[Hg] Univer sity of pressure [place] [facility] Diastolic blood 2021-11-11 18:12:00 93 mm[Hg] Unive rsity of pressure [place] [facility] Heart rate 2021-11-11 18:12:00 108 /min [facility] [place] [facility] Body temperature 2021-11-11 18:12:00 37.06 Carleen [facility] [place] [facility] Respiratory rate 2021-11-11 18:12:00 20 /min Univ [facility] [place] [facility] Oxygen saturation in 2021-11-11 18:12:00 95 /min University of Arterial blood by [place] [employer] Pulse oximetry Branch Body height 2021-11-10 17:22:00 160 cm [facility] [place] [facility] Body weight 2021-11-10 17:22:00 91 kg [facility] [place] [facility] BMI 2021-11-10 17:22:00 35.54 kg/m2 [facility] [place] [facility] Systolic blood 2021-10-24 17:05:00 143 mm[Hg] Univer sity of pressure [place] [facility] Diastolic blood 2021-10-24 17:05:00 90 mm[Hg] Unive rsity of pressure [place] [facility] Heart rate 2021-10-24 17:05:00 103 /min [facility] [place] [facility] Body temperature 2021-10-24 17:05:00 36.22 Carleen [facility] Respiratory rate 2021-10-24 17:05:00 18 /min [facility] Oxygen saturation in 2021-10-24 17:05:00 95 /min University of Arterial blood by [facility] Pulse oximetry Branch Body weight 2021-10-22 10:08:00 71.215 kg bed scale [facility] BMI 2021-10-22 10:08:00 28.72 kg/m2 [facility] Body height 2021-10-17 14:00:00 157.5 cm [facility] Systolic blood 2021-10-21 15:36:00 129 mm[facility]Hg] [facility] [place] Diastolic blood 2021-10-21 15:36:00 82 mm[Hg] [facility] Heart rate 2021-10-21 15:36:00 100 /min [facility] Respiratory rate 2021-10-21 15:36:00 20 /min [facility] Oxygen saturation in 2021-10-21 15:36:00 100 /min [place] [facility] Arterial blood by [facility] Pulse oximetry [place] Body temperature 2021-10-21 13:07:00 36.83 Carleen [facility] Body height 2021-10-17 14:00:00 157.5 cm [facility] Body weight 2021-10-17 14:00:00 99.791 kg [facility] BMI 2021-10-17 14:00:00 28.72 kg/m2 [facility] Procedures Procedure Date / Time Performing Clinician Source Performed MAGNESIUM 2021-12-07 09:01:00 [facility] COMP. METABOLIC PANEL 2021-12-07 09:01:00 Jorge L Cordova [facility] ([id number]) [facility] CBC WITH DIFF 2021-12-07 09:01:00 [facility] N-TERMINAL PRO-BNP 2021-12-07 09:01:00 Jorge L Cordova [facility] URINALYSIS 2021-12-06 16:46:00 [facility] URINE CULTURE 2021-12-06 16:46:00 Mary [facility] PHOSPHORUS 2021-12-06 10:11:00 Mary [facility] MAGNESIUM 2021-12-06 10:11:00 Mary [facility] VITAMIN B12, LEVEL 2021-12-06 10:11:00 Mary [facility] C-REACTIVE PROTEIN 2021-12-06 10:11:00 Mary [facility] TROPONIN I 2021-12-06 10:11:00 [facility] FREE T4 2021-12-06 10:11:00 [facility] COMP. METABOLIC PANEL 2021-12-06 10:11:00 Mary ady [facility] ([id number]) [facility] SEDIMENTATION RATE 2021-12-06 10:11:00 Mary [facility] CBC WITH DIFF 2021-12-06 10:11:00 [facility] N-TERMINAL PRO-BNP 2021-12-06 10:11:00 Mary [facility] VITAMIN D, 25-OH 2021-12-06 10:11:00 Mary [facility] FREE T3 2021-12-06 10:11:00 Mary [facility] PROCALCITONIN 2021-12-06 10:11:00 [facility] AC VBG + LACTIC ACID 2021-12-06 10:10:00 Mary ady [facility] COVID-19 (ID NOW RAPID 2021-12-06 00:09:00 Christos Tovar [facility] TESTING) [facility] LAB ONLY COVID 2021-12-06 00:09:00 Christos Tovar [facility] INTERPRETATION [facility] URIC ACID 2021-12-06 00:07:00 Mary, Adnan [facility] FERRITIN SERUM 2021-12-06 00:07:00 Mary [facility] TROPONIN I 2021-12-06 00:07:00 Christos Tovar [facility] THYROID STIMULATING 2021-12-06 00:07:00 Jorge L Cordova [facility] HORMONE Medical Branch COMP. METABOLIC PANEL 2021-12-06 00:07:00 Christos Tovar [facility] ([id number]) Medical Branch LIPID PANEL ([id number])(TOTAL 2021-12-06 00:07:00 Jorge L Cordova [facility] CHOLESTEROL, [facility] [place] TRIGLYCERIDES, HDL) IRON PANEL 2021-12-06 00:07:00 [facility] DIFF CONSULT 2021-12-06 00:07:00 Mary ady [facility] INTERPRETATION [facility] CBC WITH DIFF 2021-12-06 00:07:00 Christos Tovar [facility] GLYCOSYLATED HEMOGLOBIN 2021-12-06 00:07:00 Mary G[facility] (A1C) [facility] [place] PROTHROMBIN TIME / INR 2021-12-06 00:07:00 Christos Tovar [facility] ACTIVATED PARTIAL 2021-12-06 00:07:00 Christos Tovar [facility] THRMPLAS ANTONINO [facility] N-TERMINAL PRO-BNP 2021-12-06 00:07:00 Christos Tovar [facility] HB ECG ROUTINE & RHYTHM 2021-12-06 00:05:16 Christos Tovar [facility] STRIP Medical Branch XR CHEST 1 VW 2021-12-05 23:50:38 Christos Tvoar [facility] ASSIGNMENT OF BENEFITS 2021-12-05 23:47:08 Doctor Unassigned, [facility] Name [facility] [place] NOTICE OF PRIVACY 2021-12-05 22:03:59 Doctor Casandra, [facility] PRACTICES [place] [facility] [place] CONSENT/REFUSAL FOR 2021-12-05 22:03:42 Doctor Casandra, [facility] DIAGNOSIS AND TREATMENT [place] [facility] [place] CT ANGIOGRAM CHEST 2021-12-04 20:47:15 [facility] WHOLE BLOOD 2021-12-04 15:19:00 Michel [facility] BLOOD CULTURE SCREEN 2021-12-04 10:21:00 Deloris Youshua [facility] LACTIC ACID WHOLE BLOOD 2021-12-04 09:08:00 Deloris Youshua [facility] BASIC METABOLIC PANEL 2021-12-04 09:07:00 Michel [facility] (NA, K, CL, CO2, GLUCOSE, Medica l Branch BUN, CREATININE, CA) CBC WITH DIFF 2021-12-04 09:07:00 Michel [facility] EKG-12 LEAD 2021-12-03 21:29:00 Maury Brush [facility] AC ABG + LACTIC ACID 2021-12-03 21:13:00 Maury Brush [facility] AMYLASE 2021-12-03 21:12:00 Maury Brush [facility] LIPASE 2021-12-03 21:12:00 Maury Brush [facility] TROPONIN I 2021-12-03 21:12:00 Maury Brush [facility] COMP. METABOLIC PANEL 2021-12-03 21:12:00 Maury Brush [facility] ([id number]) [facility] CBC WITH DIFF 2021-12-03 21:12:00 Maury Brush [facility] N-TERMINAL PRO-BNP 2021-12-03 21:12:00 Maury Brush [facility] PROCALCITONIN 2021-12-03 21:12:00 Abu Anaya Olivarez [facility] XR CHEST 1 VW 2021-12-03 20:52:01 Maury Brush [facility] URINALYSIS 2021-12-03 20:34:00 Maury [facility]ush [facility] [place] [facility] COVID-19 (ID NOW RAPID 2021-12-03 20:34:00 Maury Brush Un [facility] TESTING) Medical Branch AUTHORIZATION FOR RELEASE 2021-11-23 05:01:00 Doctor Unassigned, [facility] [place] [facility] EKG-12 LEAD 2021-11-11 05:25:58 Sobeida Samson [facility] BASIC METABOLIC PANEL 2021-11-10 09:16:00 [facility] (NA, K, CL, CO2, GLUCOSE, Medica l Branch BUN, CREATININE, CA) CBC WITH DIFF 2021-11-10 09:16[facility]00 [facility] LACTIC ACID WHOLE BLOOD 2021-11-10 09:16:00 Sobeida Samson [facility] CT CHEST PULMONARY 2021-11-10 04:49:21 Sobeida Samson [facility] ANGIOGRAM Medical Branch BLOOD CULTURE SCREEN 2021-11-10 03:58:00 Sobeida Samson [facility] BLOOD CULTURE WORKUP 2021-11-10 03:58:00 Sobeida Samson [facility] BLOOD CULTURE SCREEN 2021-11-10 02:56:00 Sobeida Samson [facility] PROTHROMBIN TIME / INR 2021-11-10 01:47:00 Sobeida Samson [facility] D-DIMER 2021-11-10 01:47:00 Sobeida Samson [facility] ACTIVATED PARTIAL 2021-11-10 01:47:00 Sobeida Samson [facility] THRLAS [facility] COVID-19 (ID NOW RAPID 2021-11-10 01:47:00 Sobeida Samson Un [facility] TESTING) Medical Branch LAB ONLY COVID 2021-11-10 01:47:00 Sobeida Samson [facility] INTERPRETATION [facility] AC ABG + LACTIC ACID 2021-11-10 01:45:00 Sobeida Samson [facility] XR CHEST 1 VW 2021-11-10 01:38:00 Sobeida Samson [facility] COMP. METABOLIC PANEL 2021-11-10 01:32:00 ChapinSobeida [facility] ([id number]) [facility] [place] CBC WITH DIFF 2021-11-10 01:32:00 Sobeida Samson [facility] CONSENT/REFUSAL FOR 2021-11-10 00:42:41 Doctor Casandra [facility] DIAGNOSIS AND TREATMENT [place] [facility] [place] AUTHORIZATION FOR RELEASE 2021-11-07 06:01:00 Doctor Unassigned, [facility] [place] [facility] [place] EXTERNAL PROVIDER - 2021-11-03 06:01:00 Doctor Unassjael, [facility] WOMEN'S SERVICES [place] [facility] RADIOLOGY XR CHEST 1 2021-10-24 18:45:48 Abu Sher [facility] XR CHEST 1 2021-10-24 18:45:48 Sunday Olivarez [facility] BASIC METABOLIC PANEL 2021-10-24 12:36:00 Renato [facility] (NA, K, CL, CO2, GLUCOSE, Medica l Branch BUN, CREATININE, CA) CBC WITHOUT DIFF 2021-10-24 12:36:00 [facility]ato [facility] BASIC METABOLIC PANEL 2021-10-24 12:36:00 [facility] (NA, K, CL, CO2, GLUCOSE, Medica l Branch BUN, CREATININE, CA) CBC WITHOUT DIFF 2021-10-24 12:36:00 [facility] XR CHEST 1 2021-10-22 15:58:26 Abu Sher [facility] XR CHEST 1 2021-10-22 15:58:26 Sunday Olivarez [facility] MAGNESIUM 2021-10-22 10:47:00 Zelda Rose [facility] BASIC METABOLIC PANEL 2021-10-22 10:47:00 Zelda Rose [facility] (NA, K, CL, CO2, GLUCOSE, Medica l Branch BUN, CREATININE, CA) CBC WITH DIFF 2021-10-22 10:47:00 Zelda Rose [facility] MAGNESIUM 2021-10-22 10:47:00 Zelda Rose [facility] BASIC METABOLIC PANEL 2021-10-22 10:47:00 Zelda Rose [facility] (NA, K, CL, CO2, GLUCOSE, Medica l Branch BUN, CREATININE, CA) CBC WITH DIFF 2021-10-22 10:47:00 Zelda Rose [facility] XR CHEST 1 VW 2021-10-21 22:10:00 AbAnaya Dover [facility] XR CHEST 1 VW 2021-10-21 22:10:00 Sunday [facility] AC PANEL 20 + LACTIC ACID 2021-10-21 20:28:00 Sunday Olivarez [facility] AC PANEL 20 + LACTIC ACID 2021-10-21 20:28:00 Sunday [facility] CYTO BAL 2021-10-21 18:49:00 Sunday [facility] BODY FLUID DIRECT COUNT 2021-10-21 18:47:00 [facility] DIRECT COUNT 2021-10-21 18:47:00 Anaya Kline [facility] AFB CULTURE 2021-10-21 18:46:00 Sunday Olivarez [facility] FUNGUS (ROUTINE) CULTURE 2021-10-21 18:46:00 Sunday [facility] MYCOBACTERIUM 2021-10-21 18:46:00 Sunday [facility] TUBERCULOSIS COMPLEX PCR [facility] RESPIRATORY PANEL BY PCR 2021-10-21 18:46:00 Sunday [facility]arez [facility] AFB CULTURE 2021-10-21 18:46:00 Sunday [facility]arez [facility] FUNGUS (ROUTINE) CULTURE 2021-10-21 18:46:00 Sunday Olivarez [facility] MYCOBACTERIUM 2021-10-21 18:46:00 Sunday [facility]arez [facility] TUBERCULOSIS COMPLEX PCR Medical Branch RESPIRATORY PANEL BY PCR 2021-10-21 18:46:00 Anaya Kline [facility] BASIC METABOLIC PANEL 2021-10-21 18:44:00 Anaya Kline [facility] (NA, K, CL, CO2, GLUCOSE, Medica l Branch BUN, CREATININE, CA) BASIC METABOLIC PANEL 2021-10-21 18:44:00 Anaya Kline Uni [facility] (NA, K, CL, CO2, GLUCOSE, Medica l Branch BUN, CREATININE, CA) CBC WITH DIFF 2021-10-21 18:41:00 Anaya Kline [facility] PROTHROMBIN TIME / INR 2021-10-21 18:41:00 [facility] 2021-10-21 18:41:00 AbAnaya Dover [facility] CBC WITH DIFF 2021-10-21 18:41:00 Anaya Kline [facility] PROTHROMBIN TIME / INR 2021-10-21 18:41:00 [facility] 2021-10-21 18:41:00 AbAnaya Dover [facility] ANTI-NUCLEAR ANTIBODY 2021-10-21 18:41:00 AbAnaya Dover [facility] FL TIME OR 2021-10-21 18:18:06 Anaya Kline [facility] (NON-REPORTABLE) Medical Branch FL TIME OR 2021-10-21 18:18:06 Abu Anaya Olivarez [facility] (NON-REPORTABLE) [facility] Branch FLEXIBLE BRONCHOSCOPY 2021-10-21 16:21:00 AbAnaya Dover [facility] FLEXIBLE BRONCHOSCOPY 2021-10-21 16:21:00 AbAnaya [place] [facility] XR CHEST 1 VW 2021-10-20 11:13:00 Abu Anaya Olivarez [facility] XR CHEST 1 VW 2021-10-20 11:13:00 Abu Anaya Olivarez [facility] CBC WITH DIFF 2021-10-20 10:30:00 Maggie Morgan [facility] CBC WITH DIFF 2021-10-20 10:30:00 Maggie Morgan [facility] URIC ACID 2021-10-20 10:29:00 [facility] MET[facility]OLIC PANEL 2021-10-20 10:29:00 Maggie Morgan [facility] (NA, K, CL, CO2, GLUCOSE, Medica l Branch BUN, CREATININE, CA) URIC ACID 2021-10-20 10:29:00 Abu Ather, [facility] BASIC METABOLIC PANEL 2021-10-20 10:29:00 Maggie Morgan [facility] (NA, K, CL, CO2, GLUCOSE, Medica l Branch BUN, CREATININE, CA) XR CHEST 1 VW 2021-10-19 18:11:14 Abu [facility] XR CHEST 1 VW 2021-10-19 18:11:14 Abu [facility], [facility] CBC WITH DIFF 2021-10-19 09:05:00 Maggie Morgan [facility] CBC WITH DIFF 2021-10-19 09:05:00 Maggie Morgan [facility] MAGNESIUM 2021-10-19 09:04:00 Ezzo [facility] BASIC METABOLIC PANEL 2021-10-19 09:04:00 Maggie Morgan [facility] (NA, K, CL, CO2, GLUCOSE, Medica l Branch BUN, CREATININE, CA) MAGNESIUM 2021-10-19 09:04:00 Ezzo [facility] BASIC METABOLIC PANEL 2021-10-19 09:04:00 Maggie Morgan [facility] (NA, K, CL, CO2, GLUCOSE, Medica l Branch BUN, CREATININE, CA) POCT GLUCOSE (AUTOMATED) 2021-10-19 02:24:00 Blanca Talavera [facility] POCT GLUCOSE (AUTOMATED) 2021-10-19 02:24:00 Blanca Talavera [facility] COVID-19 (MOLECULAR 2021-10-18 19:48:[address] [facility] NUCLEIC ACID AMPLIFICATION) LAB ONLY COVID 2021-10-18 19:48:00 Robert [facility] COVID-19 (MOLECULAR 2021-10-18 19:48:[address] [facility] NUCLEIC ACID AMPLIFICATION) LAB ONLY COVID 2021-10-18 19:48:00 Robert [facility] ANGIOTENSIN CONVERTING 2021-10-18 19:45:00 [facility] RHEUMAT[facility] FACTOR 2021-10-18 19:45:00 Amadou Putnam [facility] ANCA SCREEN 2021-10-18 19:45:00 Robert [facility] ANGIOTENSIN CONVERTING 2021-10-18 19:45:00 Vale [facility] RHEUMATOID FACTOR 2021-10-18 19:45:00 Amadou Putnam [facility] ANCA SCREEN 2021-10-18 19:45:00 Robert [facility] XR CHEST 1 2021-10-18 12:37:00 Abu [facility] XR CHEST 1 2021-10-18 12:37:00 Abu [facility] PHOSPHORUS 2021-10-18 09:30:00 Rose [facility] MAGNESIUM 2021-10-18 09:30:00 Rose [facility] BASIC METABOLIC PANEL 2021-10-18 09:30:00 Zelda Rose [facility] (NA, K, CL, CO2, GLUCOSE, Medica l Branch BUN, CREATININE, CA) CBC WITH DIFF 2021-10-18 09:30:00 Rose [facility] GLYCOSYLATED HEMOGLOBIN 2021-10-18 09:30:00 Maggie Morgan [facility] (A1C) Medical Branch PHOSPHORUS 2021-10-18 09:30:00 Rose [facility] MAGNESIUM 2021-10-18 09:30:00 Rose [facility] BASIC METABOLIC PANEL 2021-10-18 09:30:00 Zelda Rose [facility] (NA, K, CL, CO2, GLUCOSE, Medica l Branch BUN, CREATININE, CA) CBC WITH DIFF 2021-10-18 09:30:00 Rose [facility] GLYCOSYLATED HEMOGLOBIN 2021-10-18 09:30:00 Maggie Morgan [facility] (A1C) [facility] BASIC METABOLIC PANEL 2021-10-18 00:43:00 Abu [facility] (NA, K, CL, CO2, GLUCOSE, Medica l Branch BUN, CREATININE, CA) BASIC METABOLIC PANEL 2021-10-18 00:43:00 Abu [facility], [facility] (NA, K, CL, CO2, GLUCOSE, Medica l Branch BUN, CREATININE, CA) N-TERMINAL PRO-BNP 2021-10-17 21:27:00 Josie [facility] N-TERMINAL PRO-BNP 2021-10-17 21:27:00 Josie [facility] TRANSTHORACIC ECHO (TTE) 2021-10-17 17:05:00 Bk [facility] TRANSTHORACIC ECHO (TTE) 2021-10-17 17:05:00 Bk [facility] XR CHEST 1 VW 2021-10-17 17:00:50 [facility] VW 2021-10-17 17:00:50 Josie [facility] XR CHEST 1 VW 2021-10-17 14:17:12 Josie [facility] XR CHEST 1 VW 2021-10-17 14:17:12 Josie [facility] ABG+COOX+NA+K+GLU+CA2+ 2021-10-17 13:25:00 Rodriguez, Peter [facility] ABG+COOX+NA+K+GLU+CA2+ 2021-10-17 13:25:00 Shadi Rodriguez [facility] PHOSPHORUS 2021-10-17 10:28:00 Josie, [facility] MAGNESIUM 2021-10-17 10:28:00 Ahleighann, [facility] BASIC METABOLIC PANEL 2021-10-17 10:28:00 Josie, [facility] (NA, K, CL, CO2, GLUCOSE, Medica l Branch BUN, CREATININE, CA) SEDIMENTATION RATE 2021-10-17 10:28:00 Tal [facility] CBC WITH DIFF 2021-10-17 10:28:00 Josie, [facility] ANTI-NUCLEAR ANTIBODY 2021-10-17 10:28:00 Tal [facility] ANTI-NUCLEAR ANTIBODY 2021-10-17 10:28:00 Tal [facility] ANTI-DOUBLE STRANDED DNA 2021-10-17 10:28:00 Amadou Putnam [facility] HIV 1/2 AG-AB WITH REFLEX 2021-10-17 10:28:00 Anaya Kline [facility] ANTI-NUCLEAR 2021-10-17 10:28:00 Tal [facility] ANTIBODY-PATHOLOGIST Medical [facility] INTERPRETATION PHOSPHORUS 2021-10-17 10:28:00 Josie, [facility] MAGNESIUM 2021-10-17 10:28:00 Josie, [facility] BASIC METABOLIC PANEL 2021-10-17 10:28:00 Josie [facility] (NA, K, CL, CO2, GLUCOSE, Medica l Branch BUN, CREATININE, CA) SEDIMENTATION RATE 2021-10-17 10:28:00 Tal [facility] CBC WITH DIFF 2021-10-17 10:28:00 Josie, [facility] ANTI-NUCLEAR ANTIBODY 2021-10-17 10:28:00 Rodriguez, Peter [facility] SCREEN [facility] ANTI-NUCLEAR ANTIBODY 2021-10-17 10:28:00 Shadi Rodriguez [facility] TITER [facility] ANTI-DOUBLE STRANDED DNA 2021-10-17 10:28:00 Amadou Putnam [facility] HIV 1/2 AG-AB WITH REFLEX 2021-10-17 10:28:00 Anaya Kline [facility] ANTI-NUCLEAR 2021-10-17 10:28:00 Shadi Rodriguez [facility] ANTIBODY-PATHOLOGIST Medical [facility] INTERPRETATION BLOOD CULTURE SCREEN 2021-10-16 17:40:00 [facility] 2021-10-16 17:40:00 Amadou Putnam [facility] XR CHEST 1 VW 2021-10-16 16:56:[facility] 2021-10-16 16:56:36 [facility] BY PCR 2021-10-16 14:46:00 Amadou Putnam [facility] RESPIRATORY PANEL BY PCR 2021-10-16 14:46:00 Amadou Putnam [facility] PHOSPHORUS 2021-10-16 10:47:00 Samir Galindo [facility] MAGNESIUM 2021-10-16 10:47:00 Samir Galindo [facility] BASIC METABOLIC PANEL 2021-10-16 10:47:00 Samir Galindo [facility] (NA, K, CL, CO2, GLUCOSE, Medica l Branch BUN, CREATININE, CA) CBC WITH DIFF 2021-10-16 10:47:00 Josie [facility] AC PANEL 20 + LACTIC ACID 2021-10-16 10:47:00 Samir Galindo Un [facility] PHOSPHORUS 2021-10-16 10:47:00 Samir Galindo [facility] MAGNESIUM 2021-10-16 10:47:00 Josie [facility] BASIC METABOLIC PANEL 2021-10-16 10:47:00 [facility] (NA, K, CL, CO2, GLUCOSE, Medica l Branch BUN, CREATININE, CA) CBC WITH DIFF 2021-10-16 10:47:00 Josie [facility] AC PANEL 20 + LACTIC ACID 2021-10-16 10:47:00 Samir Galindo [facility] C-REACTIVE PROTEIN 2021-10-15 22:38:00 Rodriguez, [facility] TROPONIN I 2021-10-15 22:38:00 Ilan [facility] BASIC METABOLIC PANEL 2021-10-15 22:38:00 [facility] (NA, K, CL, CO2, GLUCOSE, Medica l Branch BUN, CREATININE, CA) C-REACTIVE PROTEIN 2021-10-15 22:38:00 Tal [facility] TROPONIN I 2021-10-15 22:38:00 Ilan [facility] BASIC METABOLIC PANEL 2021-10-15 22:38:00 [facility] (NA, K, CL, CO2, GLUCOSE, Medica l Branch BUN, CREATININE, CA) PNEUMOCOCCAL ANTIGEN 2021-10-15 21:49:00 Samir Galindo [facility] PNEUMOCOCCAL ANTIGEN 2021-10-15 21:49:00 [facility] 2021-10-15 21:48:00 Josie [facility] ANTIGEN [facility] LEGIONELLA URINARY 2021-10-15 21:48:00 Josie [facility] ANTIGEN TST Medical [place] ANGIOGRAM CHEST 2021-10-15 19:22:00 Sunday [facility] CT ANGIOGRAM CHEST 2021-10-15 19:22:00 Sunday [facility]arez [facility] TROPONIN I 2021-10-15 17:29:00 Ilan [facility] RAPID INFLUENZA A/B 2021-10-15 17:29:00 Brydges, Ninotchka [facility] N-TERMINAL PRO-BNP 2021-10-15 17:29:00 Nicol Bourgeois [facility] PROCALCITONIN 2021-10-15 17:29:[address] [facility] COVID-19 (MOLECULAR 2021-10-15 17:29:[address] [facility] NUCLEIC ACID AMPLIFICATION) LAB ONLY COVID 2021-10-15 17:29:00 [facility]OP[facility]IN I 2021-10-15 17:29:00 Blanca Talavera [facility] RAPID INFLUENZA A/B 2021-10-15 17:29:[address] [facility] N-TERMINAL PRO-BNP 2021-10-15 17:29:00 Nicol Bourgeois [facility] PROCALCITONIN 2021-10-15 17:29:00 Vito Bourgeoisdaysi [facility] COVID-19 (MOLECULAR 2021-10-15 17:29:[address] [facility] NUCLEIC ACID AMPLIFICATION) LAB ONLY COVID 2021-10-15 17:29:00 Vito Bourgeoisdaysi Located within [facility] COVID-19 (ID NOW RAPID 2021-10-15 13:03:00 Samir Galindo [facility] TESTING) Medical Branch LAB ONLY COVID 2021-10-15 13:03:00 Josie Samir [facility] COVID-19 (ID NOW RAPID 2021-10-15 13:03:00 Josie Samir [facility] TESTING) Medical Branch LAB ONLY COVID 2021-10-15 13:03:00 Josie Samir [facility] XR CHEST 1 VW 2021-10-15 09:46:38 [facility] 1 VW 2021-10-15 09:46:38 [facility] MAGNESIUM 2021-10-15 08:16:00 Ahleighann [facility] BASIC METABOLIC PANEL 2021-10-15 08:16:00 Josie, [facility] (NA, K, CL, CO2, GLUCOSE, Medica l Branch BUN, CREATININE, CA) PROCALCITONIN 2021-10-15 08:16:00 [facility] MAGNESIUM 2021-10-15 08:16:00 Ahmed, [facility] BASIC METABOLIC PANEL 2021-10-15 08:16:00 Josie, [facility] (NA, K, CL, CO2, GLUCOSE, Medica l Branch BUN, CREATININE, CA) PROCALCITONIN 2021-10-15 08:16:00 Ilan [facility] ABG+COOX+NA+K+GLU+CA2+ 2021-10-15 07:24:00 Josie [facility] ABG+COOX+NA+K+GLU+CA2+ 2021-10-15 07:24:00 Josie [facility] TROPONIN I 2021-10-15 07:10:00 Ilan [facility] CBC WITH DIFF 2021-10-15 07:10:00 Ahleighann [facility] TROPONIN I 2021-10-15 07:10:00 Ilan [facility] CBC WITH DIFF 2021-10-15 07:10:00 Josie [facility] MRSA / MSSA SCREEN BY 2021-10-15 07:09:00 Josie [facility] / MSSA SCREEN BY 2021-10-15 07:09:00 Josie [facility] AUTHORIZATION FOR RELEASE 2021-06-09 05:01:00 Doctor Unassigned, [facility] [place] [facility] Encounters Start End Encounter Admission Attending Care Care Encounter Source Date/Time Date/Time Type Type Clinicians Facility Department ID 2022-01-05 Inpatient C RAKESH [facility] WWACU [id number] [facility] 13:05:00 [facility] 2021-12-08 2021-12-08 Transition SABINA Heart 1.2.840.114 [id number] Univers 00:00:00 00:00:00 of Care Marjan [place] 350.1.13.10 [place] [id number] [facility] 403 Branch 2021-12-05 2021-12-07 Inpatient X MARY [facility] ERIN [id number] Univers 17:33:00 12:01:00 ADNAN ity of [facility] 2021-12-05 2021-12-07 [facility] Christos Tovar [facility] 1.2.840.1 [id number] Univers 17:33:00 12:01:00 Encounter Esha Guillen 350.1.13.1 0 ity of o[place] 4.2.7.2.686 [facility] [id number] [facility] 080 Branch 2021-12-03 2021-12-05 [facility] [id number] Univers 12:50:00 05:42:00 WILFRID ity of [facility] 2021-12-03 2021-12-05 [facility] Gonsalo, Maury Jonh [facility] 1.2.84 0.114 [id number] Univers 12:50:00 05:42:00 [facility] 350.1.13.10 [place] [id number] [facility] 113 Branch (CLC) 2021-11-23 2021-11-23 Orders Doctor LOIDA 1.2.840.114 [id number] Univers 00:00:00 00:00:00 Only Unassigned, BETH 350.1.13.10 ity of [place] [facility] 4.2.7.2.686 José Miguel as [id number] [facility] 009 Branch 2021-11-09 2021-11-11 Outpatient X [facility] ER[facility] [id number] Univers 18:47:00 17:31:00 WILFRID ity of [facility] 2021-11-09 2021-11-11 Emergency Sobeida Samson [facility] 1.2.8 40.114 [id number] Univers 18:47:00 17:31:00 Wilfrid Hathaway HEALTH 350.1.13.10 [place] [id number] [facility] 116 Branch (CLC) 2021-11-07 2021-11-07 Orders Doctor LOIDA 1.2.840.114 [id number] Univers 00:00:00 00:00:00 Only Unassigned, BETH 350.1.13.10 ity of [place] [facility] 4.2.7.2.686 José Miguel as [id number] [facility] 009 Branch 2021-11-03 2021-11-03 Orders Doctor MARICSAL 1.2.840.114 [id number] Univers 00:00:00 00:00:00 Only Unassigned, BETH 350.1.13.10 ity of [place] [facility] 4.2.7.2.686 José Miguel as [id number] [facility] 009 Branch 2021-10-25 2021-10-25 Transition SABINA Waters 1.2.840.114 [id number] Univers 00:00:00 00:00:00 of Care Any Fong DOH[place] 350.1.13.10 i [place] [id number] [facility] 403 Branch 2021-10-15 2021-10-24 Inpatient U REHANA [facility] [id number] Univers 00:23:00 17:53:00 FLASH haywood of [facility] 2021-10-15 2021-10-24 Hospital Blanca Taalvera [facility] 1.2.840.114 [id number] Univers 00:23:00 17:53:00 Encounter Samir Galindo 350.1.13.10 ity of Shadi Rodriguez 4.2.7.2.686 Flash Aldana [id number] [facility] 113 Branch ([facility]) 2021-10-21 2021-10-[address] [facility] 1.2.840.114 [id number] Univers 10:00:00 10:45:00 Ather, HEALTH 350.1.13.10 i ty of [place] 4.2.7.2.686 Sandi JONES [id number] [facility] 020 Branch (CLC) 2021-06-09 2021-06-09 Orders Doctor LOIDA 1.2.840.114 [id number] Univers 00:00:00 00:00:00 Only Unassigned, BETH 350.1.13.10 ity of [place] [facility] 4.2.7.2.686 José Miguel as [id number] [facility] 009 Branch Results Test Description Test Time Test Comments Results Result Comments Source CBC WITH DIFF 2021-12-07 12:44:09 Test Item Value Reference Range Interpretation Comme nts WBC (test code = 6690-2) See_Comment H [A utomated message] The system which ge nerated this result transmit britney reference range: 4.30 - 1 1.10 10*3/?L. The reference r nicholas was not used to interpr et this result as normal/abnor mal. RBC (test code = 789-8) See_Comment L [Au tomated message] The system which ge nerated this result transmit britney reference range: 3.93 - 5 .25 10*6/?L. The reference r nicholas was not used to interpr et this result as normal/abnor mal. HGB (test code = 718-7) 10.3 g/dL 11.6-15.0 L HCT (test code = 4544-3) 33.1 % 35.7-45.2 L MCV (test code = 787-2) 86.6 fL 80.6-95.5 MCH (test code = 785-6) 27.0 pg 25.9-32.8 MCHC (test code = 786-4) 31.1 g/dL 31.6-35.1 L RDW-SD (test code = 10410-5) 49.5 fL 39.0-49.9 RDW-CV (test code = 788-0) 15.5 % 12.0-15.5 PLT (test code = 777-3) See_Comment H [Au tomated message] The system which ge nerated this result transmit britney reference range: 166 - 35 8 10*3/?L. The reference range was not used to interpret th is result as normal/abnormal . MPV (test code = 59231-9) 10.3 fL 9.5-12.9 NRBC/100 WBC (test code = See_Comment [ Automated message] The 5370350330) system which ge nerated this result transmit britney reference range: 0.0 - 10 .0 /100 WBCs. The reference r nicholas was not used to interpr et this result as normal/abnor mal. NRBC x10^3 (test code = See_Comment [Au tomated message] The 1512219935) system which ge nerated this result transmit britney reference range: 10*3/?L. The reference range was not u sed to interpret this result as normal/abnormal . GRAN MAT (NEUT) % (test code 64.4 % = 770-8) IMM GRAN % (test code = 3.60 % 6908984785) LYMPH % (test code = 736-9) 23.5 % MONO % (test code = 5905-5) 7.3 % EOS % (test code = 713-8) 0.9 % BASO % (test code = 706-2) 0.3 % GRAN MAT x10^3(ANC) (test 7.19 10*3/uL 1.88-7.09 H code = 1222950090) IMM GRAN x10^3 (test code = 0.40 10*3/uL 0.00-0.06 H 6376431615) LYMPH x10^3 (test code = 2.63 10*3/uL 1.32-3.29 731-0) MONO x10^3 (test code = 0.82 10*3/uL 0.33-0.92 742-7) EOS x10^3 (test code = 0.10 10*3/uL 0.03-0.39 711-2) BASO x10^3 (test code = 0.03 10*3/uL 0.01-0.07 704-7) POLYCHROMASIA (test code = 2+ See_Comment [Automated message] The 23958-1) system which ge nerated this result transmit britney reference range: 2+. The reference range was not used to interpret this result as earnest l/abnormal. GIANT PLATELETS (test code = Present See_Comment A [Automated message] The 5908-9) system which ge nerated this result transmit britney reference range: (none). The reference range was not u sed to interpret this result as normal/abnormal . Lab Interpretation (test Abnormal code = 36380-3) [facility] [id number] 10:06:53 Test Item Value Reference Range Interpretation Comments NT-proBNP (test code 117 pg/mL See_Comment [Autom ated = 7054062814) message] The system which generated this result transmitted reference range : <=125. The reference range was not used to interpret this result as normal/abnormal . LUCILLE (test code = LUCILLE) Biotin has been reported to cause a negative bias, interpret results relative to patient's use of biotin. Lab Interpretation Normal (test code = 91331-2) [facility] METABOLIC PANEL (62067)2021-12-07 10:02:35 Test Item Value Reference Range Interpretation Comments NA (test code = 140 mmol/L 135-145 4775409149) K (test code = 3.7 mmol/L 3.5-5.0 8713553026) CL (test code = 104 mmol/L 98-108 0433070304) CO2 TOTAL (test code = 31 mmol/L 23-31 4606419104) AGAP (test code = 2-16 8739151632) BUN (test code = 21 mg/dL 7-23 1910283730) GLUCOSE (test code = 91 mg/dL 70-110 6784429960) CREATININE (test code = 1.00 mg/dL 0.50-1.04 8714449376) TOTAL BILI (test code = 0.3 mg/dL 0.1-1.4 4371385469) CALCIUM (test code = 8.1 mg/dL 8.6-10.6 L 7901431453) T PROTEIN (test code = 5.9 g/dL 6.3-8.2 L 3939403324) ALBUMIN (test code = 3.4 g/dL 3.5-5.0 L 7689225589) ALK PHOS (test code = 87 U/L 34-122 7251482407) ALTv (test code = 39 U/L 5-35 H 2-) AST(SGOT) (test code = 24 U/L 13-40 1285265242) eGFR (test code = mL/min/1.73m2 9047179490) LUCILLE (test code = LUCILLE) Association of [...] tests). Lab Interpretation Abnormal (test code = 69033-2) [facility]2022-04-06 10:02:35 Test Item Value Reference Range Interpretation Comments MAGNESIUM (test code = 3595352365) 2.2 mg/dL 1.7-2.4 Lab Interpretation (test code = Normal 92520-9) [facility] Center[facility]IT[facility]IN B12, [id number] 22:18:47 Test Item Value Reference Range Interpretation Comments VIT B12 (test code = 979 pg/mL 240-930 H 2086866440) LUCILLE (test code = LUCILLE) Biotin has been reported to cause a positive bias, interpret results relative to patient's use of biotin. Lab Interpretation (test Abnormal code = 50576-7) [facility] CenterPROCALCITONIN2022-04-05 21:47:27 Test Item Value Reference Range Interpretation Comments Procalcitonin (test 0.05 ng/mL <0.07 code = 5786583487) LUCILLE (test code = LUCILLE) INTERPRETATION OF [...] lung abscess/empyema. For further information please refer to:[email or web address] Lab Interpretation Normal (test code = 19119-7) [facility] Center[facility]IT[facility]IN D, [id number] 20:41:30 Test Item Value Reference Range Interpretation Comments VIT D 25OH (test code = <13 25-80 L 49257-9) LUCILLE (test code = LUCILLE) Deficiency: <20 ng/mLInsufficiency: 20-24 ng/mLOptimal: 25-80 ng/mL Lab Interpretation (test Abnormal code = 49818-3) [facility] CenterDIFF CONSULT [id number] 20:04:06 LEUKOCYTOSIS WITH ABSOLUTE NEUTROPHILIA AND INCREASED IMMATURE GRANULOCYTES/LEFT SHIFT, CONSISTENT WITH PATIENT'S KNOWN INFECTION. NORMOCYTIC, NORMOCHROMIC ANEMIA. MILD THROMBOCYTOSIS.[facility] [id number] 18:31:30 Test Item Value Reference Range Interpretation Comments FREE T3 (test code = 1507107551) 2.49 pg/mL 2.77-5.27 L Lab Interpretation (test code = Abnormal 57082-9) [facility] CenterC-REACTIVE [id number] 17:54:11 Test Item Value Reference Range Interpretation Comments CRP (test code = 2019341940) 0.2 mg/dL <0.8 Lab Interpretation (test code = Normal 43768-8) [facility] [id number] 13:49:44 Test Item Value Reference Range Interpretation Comments FREE T4 (test code = See_Comment L [Autom ated message] 3809086440) The system [employer] generated this result transmitted ref erence range: 0.78 - 2 .20 ng/dL:. The ref erence range was not u sed to interpret this result as normal/abnor mal. Lab Interpretation (test Abnormal code = 30265-2) [facility] WITH [id number] 12:20:38 Test Item Value Reference Range Interpretation Comments WBC (test code = See_Comment H [Automated 2690-2) message] The system which generated this result [...] 11.6-15.0 L 718-7) HCT (test code = 30.5 % 35.7-45.2 L 4544-3) MCV (test code = 86.2 fL 80.6-95.5 787-2) MCH (test code = 27.4 pg 25.9-32.8 785-6) MCHC (test code = 31.8 g/dL 31.6-35.1 786-4) RDW-SD (test code = 48.5 fL 39.0-49.9 90619-1) RDW-CV (test code = 15.3 % 12.0-15.5 788-0) PLT (test code = See_Comment [Automated 777-3) message] The system which generated this result transmit britney reference range : 166 - 358 10*3/ ?L. The reference range was not u sed to interpret th is result as normal/abnormal . MPV (test code = 10.4 fL 9.5-12.9 33791-2) NRBC/100 WBC (test See_Comment [Automat ed code = 1362161043) message] The system which generated this result transmit britney reference range : 0.0 - 10.0 /100 WBCs. The reference range was not used to interpret this result as normal/abnormal . NRBC x10^3 (test code See_Comment [Auto mated = 7426071540) message] The system which generated this result transmit britney reference range : 10*3/?L. The reference range was not used to interpret this result as normal/abnormal . GRAN MAT (NEUT) % 74.0 % (test code = 770-8) IMM GRAN % (test code 3.20 % = 2973119866) LYMPH % (test code = 14.7 % 736-9) MONO % (test code = 7.7 % 5905-5) EOS % (test code = 0.1 % 713-8) BASO % (test code = 0.3 % 706-2) GRAN MAT x10^3(ANC) 11.18 10*3/uL 1.88-7.09 H (test code = 5791229187) IMM GRAN x10^3 (test 0.48 10*3/uL 0.00-0.06 H code = 7368679604) LYMPH x10^3 (test code 2.22 10*3/uL 1.32-3.29 = 731-0) MONO x10^3 (test code 1.17 10*3/uL 0.33-0.92 H = 742-7) EOS x10^3 (test code = <0.03 0.03-0.39 L 711-2) BASO x10^3 (test code 0.04 10*3/uL 0.01-0.07 = 704-7) Lab Interpretation Abnormal (test code = 56702-1) [facility] CenterFERRITIN [id number] 11:45:10 Test Item Value Reference Range Interpretation Comments FERRITIN (test code = 16.1 ng/mL 11.0-264.0 8255867894) LUCILLE (test code = LUCILLE) Biotin has been reported to cause a negative bias, interpret results relative to patient's use of biotin. Lab Interpretation (test Normal code = 46704-2) [facility] CenterTHYROID STIMULATING [id number] 11:41:28 Test Item Value Reference Range Interpretation Comments TSH (test code = See_Comment L [Automated message] 8783605056) The system [employer] generated this result transmitted ref erence range: 0.45 - 4 .70 mIU/L. The refe rence range was not u sed to interpret this result as normal/abnor mal. Lab Interpretation (test Abnormal code = 94807-5) [facility] CenterSEDIMENTATION [id number] 11:30:34 Test Item Value Reference Range Interpretation Comments ESR (test code = See_Comment [Automated message] 1280626010) The system [employer] h generated this result transmitted ref erence range: 0 - 20 m m/HR. The reference r nicholas was not used to interpret this result as normal/abnor mal. Lab Interpretation (test Normal code = 14953-0) [facility] CenterTR[facility] [id number] 11:30:08 Test Item Value Reference Interpretation Comments Range TROPONIN I (test 0.023 ng/mL See_Comment [Automated code = 4943080871) message] The system which generated this result [...] biotin. Lab Interpretation Normal (test code = 47363-4) [facility] METABOLIC PANEL (89012)2021-12-06 11:28:58 Test Item Value Reference Range Interpretation Comments NA (test code = 140 mmol/L 135-145 3055431454) K (test code = 3.1 mmol/L 3.5-5.0 L 1519421315) CL (test code = 106 mmol/L 98-108 6845422807) CO2 TOTAL (test code = 31 mmol/L 23-31 2450266958) AGAP (test code = 2-16 8692637596) BUN (test code = 24 mg/dL 7-23 H 4272150678) GLUCOSE (test code = 88 mg/dL 70-110 6950406542) CREATININE (test code = 0.95 mg/dL 0.50-1.04 4370593376) TOTAL BILI (test code = 0.3 mg/dL 0.1-1.5 7070058074) CALCIUM (test code = 8.4 mg/dL 8.6-10.6 L 8833968547) T PROTEIN (test code = 5.7 g/dL 6.3-8.2 L 1370612944) ALBUMIN (test code = 3.3 g/dL 3.5-5.0 L 3905431945) ALK PHOS (test code = 83 U/L 34-122 3910184228) ALTv (test code = 44 U/L 5-35 H 1742-6) AST(SGOT) (test code = 27 U/L 13-40 6045953208) eGFR (test code = mL/min/1.73m2 0937117831) LUCILLE (test code = LUCILLE) Association of [...] tests). Lab Interpretation Abnormal (test code = 15235-1) [facility]N-[facility]MINAL [id number] 11:26:47 Test Item Value Reference Range Interpretation Comments NT-proBNP (test code 442 pg/mL See_Comment H [Autom ated = 3751869076) message] The system which generated this result transmitted reference range : <=125. The reference range was not used to interpret this result as normal/abnormal . LUCILLE (test code = LUCILLE) Biotin has been reported to cause a negative bias, interpret results relative to patient's use of biotin. Lab Interpretation Abnormal (test code = 14731-9) [facility] CenterIRON [id number] 11:19:22 Test Item Value Reference Range Interpretation Comments IRON (test code = 2206671388) 34 ug/dL 50-160 L TIBC (test code = 8825155721) 408 ug/dL 250-410 % FE SAT (test code = 2140117000) 8 % 20-50 L Lab Interpretation (test code = Abnormal 39861-9) [facility] CenterMAGNESIUM2022-04-05 11:18:47 Test Item Value Reference Range Interpretation Comments MAGNESIUM (test code = 7744086193) 1.9 mg/dL 1.7-2.4 Lab Interpretation (test code = Normal 47004-4) [facility] CenterPHOSPHORUS2022-04-05 11:18:02 Test Item Value Reference Range Interpretation Comments PHOSPHORUS (test code = 2628443242) 3.3 mg/dL 2.5-5.0 Lab Interpretation (test code = Normal 87730-8) [facility] CenterLIPID PANEL (02280)(TOTAL CHOLESTEROL, TRIGLYCERIDES, HDL)2021-12-06 11:09:41 Test Item Value Reference Range Interpretation Comments CHOL (test code = 208 mg/dL 120-200 H 8224961547) HDL (test code = 99 mg/dL >50 4483117072) HDLC RATIO (test code = See_Comment [Au tomated message] 0896512571) The system [employer] generated this result transmit britney reference range : <=4.5. The refe rence range was not u sed to interpret th is result as normal/abnormal . TRIG (test code = 172 mg/dL 30-170 H 9755089115) LDL CHOL (test code = 75 mg/dL See_Comment [Auto mated message] 14702-4) The system [employer] generated this result transmit britney reference range : <=160. The refe rence range was not u sed to interpret th is result as normal/abnormal . VLDL (test code = 34 mg/dL 5-60 3546268061) Lab Interpretation (test Abnormal code = 47212-8) [facility] CenterURIC [id number] 11:09:21 Test Item Value Reference Range Interpretation Comments URIC ACID (test code = 9200380181) 6.1 mg/dL 2.9-6.0 H Lab Interpretation (test code = Abnormal 87437-7) [facility] CenterGLYCOSYLATED HEMOGLOBIN (A1C)2021-12-06 08:48:15 Test Item Value Reference Range Interpretation Comments HGB A1C (test code = 5.7 % 4.0-5.7 4548-4) LUCILLE (test code = LUCILLE) Reference RangesNormal: <5.7%Prediabetes: 5.7 - 6.4%Diabetes: > 6.5% Lab Interpretation (test Normal code = 01096-6) [facility] CenterCB WITH [id number] 01:01:58 Test Item Value Reference Range Interpretation Comments WBC (test code = See_Comment H [Automated 6090-2) message] The system which generated this result [...] as normal/abnormal . HGB (test code = 10.6 g/dL 11.6-15.0 L 718-7) HCT (test code = 32.9 % 35.7-45.2 L 4544-3) MCV (test code = 84.4 fL 80.6-95.5 787-2) MCH (test code = 27.2 pg 25.9-32.8 785-6) MCHC (test code = 32.2 g/dL 31.6-35.1 786-4) RDW-SD (test code = 46.4 fL 39.0-49.9 89105-8) RDW-CV (test code = 15.2 % 12.0-15.5 788-0) PLT (test code = See_Comment H [Automated 777-3) message] The system which generated this result transmit britney reference range : 166 - 358 10*3/ ?L. The reference range was not u sed to interpret th is result as normal/abnormal . MPV (test code = 10.6 fL 9.5-12.9 71481-1) NRBC/100 WBC (test See_Comment [Automat ed code = 9685896017) message] The system which generated this result transmit britney reference range : 0.0 - 10.0 /100 WBCs. The reference range was not used to interpret this result as normal/abnormal . NRBC x10^3 (test code See_Comment [Auto mated = 4364986375) message] The system which generated this result transmit britney reference range : 10*3/?L. The reference range was not used to interpret this result as normal/abnormal . SEG % (test code = 83 % 33-76 H 85310-6) BAND % (test code = 4 % 0-1 H 86846-4) LYMPH % (test code = 7 % 14-54 L 45756-3) MONO % (test code = 5 % 0-4 H 18925-2) EOS % (test code = 1 % 0-3 42006-0) ANC (test code = 19.01 10*3/uL 1.88-7.09 H 753-4) TOXIC CHANGES (test Present A code = 803-7) Lab Interpretation Abnormal (test code = 67655-5) [facility] CenterWENDY [id number] 00:45:54 Test Item Value Reference Interpretation Comments Range TROPONIN I (test 0.022 ng/mL See_Comment [Automated code = 9549668588) message] The system which generated this result [...] biotin. Lab Interpretation Normal (test code = 39174-5) [facility] CenterN-TERMINAL [id number] 00:42:51 Test Item Value Reference Range Interpretation Comments NT-proBNP (test code 544 pg/mL See_Comment H [Autom ated = 3315275214) message] The system which generated this result transmitted reference range : <=125. The reference range was not used to interpret this result as normal/abnormal . LUCILLE (test code = LUCILLE) Biotin has been reported to cause a negative bias, interpret results relative to patient's use of biotin. Lab Interpretation Abnormal (test code = 20027-9) [facility] CenterACTIVATED PARTIAL THRMPLAS [id number] 00:36:33 Test Item Value Reference Range Interpretation Comments APTT Patient (test See_Comment L [Automat ed code = 3173-2) message] The system which generated this result transmitted reference range : 23 - 38 Seconds . The reference range was not used to interpr et this result as normal/abnormal . LUCILLE (test code = LUCILLE) The [facility] patient population mean normal value for aPTT is 30 seconds. Lab Interpretation Abnormal (test code = 76986-5) [facility] CenterPROTHROMBIN TIME / [id number] 00:34:31 Test Item Value Reference Range Interpretation Comments PROTIME PATIENT (test See_Comment [Auto mated message] code = 5964-2) The system wh ich generated this result transmitted ref erence range: 12.0 - 1 4.7 Seconds. The re ference range was not u sed to interpret this result as normal/abnor mal. INR (test code = 6301-6) Nor mal INR <1.1; Warfarin Therap eutic range 2.0 to 3. 0 or 2.5 to 3.5, dep ending upon the indica tions. Lab Interpretation (test Normal code = 08608-5) [facility]. METABOLIC PANEL (00573)2021-12-06 00:34:11 Test Item Value Reference Range Interpretation Comments NA (test code = 141 mmol/L 135-145 1398236541) K (test code = 3.9 mmol/L 3.5-5.0 0177950036) CL (test code = 104 mmol/L 98-108 0026835578) CO2 TOTAL (test code = 27 mmol/L 23-31 6356931279) AGAP (test code = 2-16 0564596978) BUN (test code = 24 mg/dL 7-23 H 7088587212) GLUCOSE (test code = 117 mg/dL 70-110 H 8825153846) CREATININE (test code = 0.96 mg/dL 0.50-1.04 0563625746) TOTAL BILI (test code = 0.4 mg/dL 0.1-1.0 3580287952) CALCIUM (test code = 8.9 mg/dL 8.6-10.6 6513834966) T PROTEIN (test code = 6.5 g/dL 6.3-8.2 2055460532) ALBUMIN (test code = 4.0 g/dL 3.5-5.0 7641464143) ALK PHOS (test code = 107 U/L 34-122 8770160135) ALTv (test code = 49 U/L 5-35 H 1742-6) AST(SGOT) (test code = 44 U/L 13-40 H 0669051678) eGFR (test code = mL/min/1.73m2 3617386519) LUCILLE (test code = LUCILLE) Association of [...] tests). Lab Interpretation Abnormal (test code = 51588-6) [facility] CenterPROCALCITONIN2022-04-04 02:29:14 Test Item Value Reference Range Interpretation Comments Procalcitonin (test 0.11 ng/mL <0.08 H code = 2362055023) LUCILLE (test code = LUCILLE) INTERPRETATION OF [...] lung abscess/empyema. For further information please refer to:[email or web address] Lab Interpretation Abnormal (test code = 44879-4) [facility] CenterLactic Acid Whole [id number] 15:26:51 Test Item Value Reference Range Interpretation Comments LACTIC ACID (test code = 2.36 mmol/L 0.50-2.20 H 8362045705) Lab Interpretation (test code = Abnormal 21063-1) [facility] CenterCBC with [id number] 09:45:08 Test Item Value Reference Range Interpretation Comments [...] as normal/abnormal . HGB (test code = 10.0 g/dL 11.6-15.0 L 718-7) HCT (test code = 31.2 % 35.7-45.2 L 4544-3) MCV (test code = 87.2 fL 80.6-95.5 787-2) MCH (test code = 27.9 pg 25.9-32.8 785-6) MCHC (test code = 32.1 g/dL 31.6-35.1 786-4) RDW-SD (test code = 48.3 fL 39.0-49.9 86575-4) RDW-CV (test code = 15.2 % 12.0-15.5 788-0) PLT (test code = See_Comment [Automated 777-3) message] The system which generated this result transmit britney reference range : 166 - 358 10*3/ ?L. The reference range was not u sed to interpret th is result as normal/abnormal . MPV (test code = 10.3 fL 9.5-12.9 44408-4) NRBC/100 WBC (test See_Comment [Automat ed code = 7509333907) message] The system which generated this result transmit britney reference range : 0.0 - 10.0 /100 WBCs. The reference range was not used to interpret this result as normal/abnormal . NRBC x10^3 (test code See_Comment [Auto mated = 1354050705) message] The system which generated this result transmit britney reference range : 10*3/?L. The reference range was not used to interpret this result as normal/abnormal . GRAN MAT (NEUT) % 90.3 % (test code = 770-8) IMM GRAN % (test code 1.20 % = 2406009962) LYMPH % (test code = 5.8 % 736-9) MONO % (test code = 2.6 % 5905-5) EOS % (test code = 0.0 % 713-8) BASO % (test code = 0.1 % 706-2) GRAN MAT x10^3(ANC) 19.89 10*3/uL 1.88-7.09 H (test code = 2756363034) IMM GRAN x10^3 (test 0.27 10*3/uL 0.00-0.06 H code = 1004792985) LYMPH x10^3 (test code 1.28 10*3/uL 1.32-3.29 L = 731-0) MONO x10^3 (test code 0.57 10*3/uL 0.33-0.92 = 742-7) EOS x10^3 (test code = <0.03 0.03-0.39 L 711-2) BASO x10^3 (test code 0.03 10*3/uL 0.01-0.07 = 704-7) POLYCHROMASIA (test 2+ See_Comment [Automa britney code = 14069-1) message] The system which generated this result transmit britney reference range : 2+. The referen ce range was not u sed to interpret th is result as normal/abnormal . TOXIC CHANGES (test Present A code = 803-7) Lab Interpretation Abnormal (test code = 92683-9) [facility] Metabolic Panel (NA, K, CL, CO2, GLUCOSE, BUN, CREATININE, CA)2021-12-04 09:38:00 Test Item Value Reference Range Interpretation Comments NA (test code = 137 mmol/L 135-145 1858767794) K (test code = 3.7 mmol/L 3.5-5.0 2567225345) CL (test code = 107 mmol/L 98-108 9705234991) CO2 TOTAL (test code = 21 mmol/L 23-31 L 4058520834) AGAP (test code = 2-16 4381991100) BUN (test code = 19 mg/dL 7-23 5566227805) GLUCOSE (test code = 149 mg/dL 70-110 H 4882387024) CREATININE (test code = 1.00 mg/dL 0.50-1.04 0716013924) CALCIUM (test code = 8.8 mg/dL 8.6-10.6 0620055335) eGFR (test code = mL/min/1.73m2 7190858032) LUCILLE (test code = LUCILLE) Association of [...] tests). Lab Interpretation Abnormal (test code = 46383-2) [facility] CenterLactic Acid Whole [id number] 09:20:11 Test Item Value Reference Range Interpretation Comments LACTIC ACID (test code = 3.77 mmol/L 0.50-2.20 H 1441232645) Lab Interpretation (test code = Abnormal 55848-9) [facility] CenterURINALYSIS2022-04-02 23:35:41 Test Item Value Reference Range Interpretation Comments APPEARANCE (test code = Clear Clear 7421441393) COLOR (test code = Yellow Yellow 3957630598) PH (test code = 4.8-8.0 4404017376) SP GRAVITY (test code = 1.003-1.030 4961566379) GLU U QUAL (test code = Normal Normal 9256732840) BLOOD (test code = Negative Negative Interfere nce from 6444184718) ascorbic acid m ay cause false neg ative results. KETONES (test code = Negative Negative 2810748981) PROTEIN (test code = Negative Negative 2887-8) UROBILIN (test code = Normal Normal 1259580986) BILIRUBIN (test code = Negative Negative 7898310776) NITRITE (test code = Negative Negative 5846959259) [place] (test code = Negative Negative 2440230704) RBC/HPF (test code = See_Comment [Autom ated message] 2743941508) The system [employer] generated this result transmitted ref erence range: 0 - 3 HP F. The reference range was not used to int erpret this result as normal/abnormal . WBC/HPF (test code = See_Comment [Autom ated message] 4281277145) The system [employer] generated this result transmitted ref erence range: 0 - 5 HP F. The reference range was not used to int erpret this result as normal/abnormal . BACTERIA (test code = Negative Negative 8244401147) SQ EPITH (test code = See_Comment H [Auto mated message] 8054628205) The system [employer] generated this result transmitted ref erence range: <=2 HPF. The reference range was not used to int erpret this result as normal/abnormal . Lab Interpretation (test Abnormal code = 28748-4) [facility] WITH [id number] 21:54:52 Test Item Value Reference Range Interpretation Comments WBC (test code = See_Comment H [Automated 4390-2) message] The system which generated this result [...] as normal/abnormal . HGB (test code = 10.1 g/dL 11.6-15.0 L 718-7) HCT (test code = 32.0 % 35.7-45.2 L 4544-3) MCV (test code = 86.5 fL 80.6-95.5 787-2) MCH (test code = 27.3 pg 25.9-32.8 785-6) MCHC (test code = 31.6 g/dL 31.6-35.1 786-4) RDW-SD (test code = 48.1 fL 39.0-49.9 77715-6) RDW-CV (test code = 15.3 % 12.0-15.5 788-0) PLT (test code = See_Comment [Automated 777-3) message] The system which generated this result transmit britney reference range : 166 - 358 10*3/ ?L. The reference range was not u sed to interpret th is result as normal/abnormal . MPV (test code = 10.1 fL 9.5-12.9 32964-3) NRBC/100 WBC (test See_Comment [Automat ed code = 7155478744) message] The system which generated this result transmit britney reference range : 0.0 - 10.0 /100 WBCs. The reference range was not used to interpret this result as normal/abnormal . NRBC x10^3 (test code See_Comment [Auto mated = 7414794230) message] The system which generated this result transmit britney reference range : 10*3/?L. The reference range was not used to interpret this result as normal/abnormal . GRAN MAT (NEUT) % 90.9 % (test code = 770-8) IMM GRAN % (test code 0.80 % = 0159050850) LYMPH % (test code = 6.4 % 736-9) MONO % (test code = 1.8 % 5905-5) EOS % (test code = 0.0 % 713-8) BASO % (test code = 0.1 % 706-2) GRAN MAT x10^3(ANC) 17.07 10*3/uL 1.88-7.09 H (test code = 4436494891) IMM GRAN x10^3 (test 0.15 10*3/uL 0.00-0.06 H code = 6059438157) LYMPH x10^3 (test code 1.20 10*3/uL 1.32-3.29 L = 731-0) MONO x10^3 (test code 0.34 10*3/uL 0.33-0.92 = 742-7) EOS x10^3 (test code = <0.03 0.03-0.39 L 711-2) BASO x10^3 (test code <0.03 0.01-0.07 = 704-7) TOXIC CHANGES (test Present A code = 803-7) Lab Interpretation Abnormal (test code = 10033-5) [facility] CenterN-[facility]MINAL [id number] 21:47:46 Test Item Value Reference Range Interpretation Comments NT-proBNP (test code 662 pg/mL See_Comment H [Autom ated = 5178840027) message] The system which generated this result transmitted reference range : <=125. The reference range was not used to interpret this result as normal/abnormal . LUCILLE (test code = LUCILLE) Biotin has been reported to cause a negative bias, interpret results relative to patient's use of biotin. Lab Interpretation Abnormal (test code = 52220-9) [facility] CenterTROPONIN [id number] 21:47:46 Test Item Value Reference Interpretation Comments Range TROPONIN I (test 0.007 ng/mL See_Comment [Automated code = 1114239891) message] The system which generated this result [...] biotin. Lab Interpretation Normal (test code = 25770-6) [facility] CenterAMYLASE2022-04-02 21:36:08 Test Item Value Reference Range Interpretation Comments KIERA (test code = 9747491715) 66 U/L 35-110 Lab Interpretation (test code = Normal 88273-4) [facility] CenterLIPASE2022-04-02 21:36:08 Test Item Value Reference Range Interpretation Comments LIPASE (test code = 1505637579) 83 U/L 0-220 Lab Interpretation (test code = Normal 92779-9) [facility] CenterCOM. METABOLIC PANEL (15459)2021-12-03 21:36:08 Test Item Value Reference Range Interpretation Comments NA (test code = 137 mmol/L 135-145 4198894750) K (test code = 4.5 mmol/L 3.5-5.0 1877794471) CL (test code = 107 mmol/L 98-108 5968177434) CO2 TOTAL (test code = 20 mmol/L 23-31 L 3751343746) AGAP (test code = 2-16 2391907836) BUN (test code = 20 mg/dL 7-23 8086700358) GLUCOSE (test code = 140 mg/dL 70-110 H 8290482626) CREATININE (test code = 0.97 mg/dL 0.50-1.04 9975912844) TOTAL BILI (test code = 0.3 mg/dL 0.1-1.0 2902064477) CALCIUM (test code = 8.9 mg/dL 8.6-10.6 1765934031) T PROTEIN (test code = 7.1 g/dL 6.3-8.2 1655143610) ALBUMIN (test code = 4.3 g/dL 3.5-5.0 7278039765) ALK PHOS (test code = 97 U/L 34-122 0057118336) ALTv (test code = 56 U/L 5-35 H 1742-6) AST(SGOT) (test code = 38 U/L 13-40 0278417563) eGFR (test code = mL/min/1.73m2 8992056957) LUCILLE (test code = LUCILLE) Association of [...] tests). Lab Interpretation Abnormal (test code = 81992-3) [facility] CenterAC ABG + LACTIC [id number] 21:21:29 Test Item Value Reference Range Interpretation Comments PH (test code = 2) 7.35-7.45 PCO2 (test code = See_Comment L [Automat ed 8911419389) message] The sy stem which generated this result transmitted reference range : 35 - 45 mmHg. The reference range was not used to interpret this result as normal/abnormal . PO2 (test code = See_Comment [Automated 7251900648) message] The sy stem which generated this result transmitted reference range : 80 - 100 mmHg. The reference range was not used to interpret this result as normal/abnormal . HCO3 (test code = See_Comment [Automate d 0401856534) message] The sy stem which generated this result transmitted reference range : 22 - 26 mEq/L. The reference range was not used to interpret this result as normal/abnormal . BE (test code = See_Comment [Automated 4653819280) message] The sy stem which generated this result transmitted reference range : -3.0 - 3.0 mEq/ L. The reference r nicholas was not used to interpret this result as normal/abnormal . LACTIC ACID (test code 2.96 mmol/L 0.50-2.20 H = 4184885319) Lab Interpretation Abnormal (test code = 85196-0) [facility] Metabolic Panel (NA, K, CL, CO2, GLUCOSE, BUN, CREATININE, CA)2021-11-10 09:40:55 Test Item Value Reference Range Interpretation Comments NA (test code = 138 mmol/L 135-145 6704962221) K (test code = 3.4 mmol/L 3.5-5.0 L 8918608631) CL (test code = 107 mmol/L 98-108 6065247877) CO2 TOTAL (test code = 25 mmol/L 23-31 2978002287) AGAP (test code = 2-16 3540253858) BUN (test code = 15 mg/dL 7-23 1354454053) GLUCOSE (test code = 110 mg/dL 70-110 7346591299) CREATININE (test code = 0.81 mg/dL 0.50-1.04 7015749334) CALCIUM (test code = 7.8 mg/dL 8.6-10.6 L 5069481638) eGFR (test code = mL/min/1.73m2 7646580692) LUCILLE (test code = LUCILLE) Association of [...] tests). Lab Interpretation Abnormal (test code = 73746-2) [facility] with Ruooashctjdq5178-17-19 09:25:30 Test Item Value Reference Range Interpretation [...] (test code = 57.2 fL 39.0-49.9 H 34956-4) RDW-CV (test code = 17.0 % 12.0-15.5 H 788-0) PLT (test code = See_Comment [Automated 777-3) message] The sy stem which generated this result transmitted reference range : 166 - 358 10*3/ ?L. The reference r nicholas was not used to interpret this result as normal/abnormal . MPV (test code = 9.2 fL 9.5-12.9 L 26177-4) NRBC/100 WBC (test See_Comment [Automat ed code = 4421081147) message] The system which generated this result transmitted reference range : 0.0 - 10.0 /100 WBCs. The refer ence range was not u sed to interpret th is result as normal/abnormal . NRBC x10^3 (test code See_Comment [Auto mated = 5248922109) message] The s ystem which generated this result transmitted reference range : 10*3/?L. The reference range was not used to interpret this result as normal/abnormal . GRAN MAT (NEUT) % 72.2 % (test code = 770-8) IMM GRAN % (test code 1.30 % = 1912464132) LYMPH % (test code = 18.9 % 736-9) MONO % (test code = 6.3 % 5905-5) EOS % (test code = 1.2 % 713-8) BASO % (test code = 0.1 % 706-2) GRAN MAT x10^3(ANC) 8.06 10*3/uL 1.88-7.09 H (test code = 9238818685) IMM GRAN x10^3 (test 0.14 10*3/uL 0.00-0.06 H code = 3478490311) LYMPH x10^3 (test code 2.10 10*3/uL 1.32-3.29 = 731-0) MONO x10^3 (test code 0.70 10*3/uL 0.33-0.92 = 742-7) EOS x10^3 (test code = 0.13 10*3/uL 0.03-0.39 711-2) BASO x10^3 (test code <0.03 0.01-0.07 = 704-7) Lab Interpretation Abnormal (test code = 76911-2) [facility] CenterLactic Acid Whole [id number] 09:22:39 Test Item Value Reference Range Interpretation Comments LACTIC ACID (test code = 3.32 mmol/L 0.50-2.20 H 9528376372) Lab Interpretation (test code = Abnormal 63172-2) [facility] CenterACTIVATED PARTIAL THRMPLAS [id number] 02:13:42 Test Item Value Reference Range Interpretation Comments APTT Patient (test code See_Comment L [Au tomated message] = 3173-2) The system [employer] generated this result transmitted ref erence range: 26 - 36 Seconds. The reference range was not used to int erpret this result as normal/abnormal . Lab Interpretation (test Abnormal code = 51973-3) [facility] CenterPROTHROMBIN TIME / [id number] 02:13:42 Test Item Value Reference Range Interpretation Comments PROTIME PATIENT (test See_Comment [Auto mated message] code = 5964-2) The system [employer] ich generated this result transmitted ref erence range: 10.1 - 1 2.6 Seconds. The re ference range was not u sed to interpret this result as normal/abnor mal. INR (test code = 6301-6) Nor mal INR <1.1; Warfarin Therap eutic range 2.0 to 3. 0 or 2.5 to 3.5, dep ending upon the indica tions. Lab Interpretation (test Normal code = 78843-8) [facility] CenterD-[id number] 02:13:42 Test Item Value Reference Interpretation Comments Range D-DIMER (test code = See_Comment H [Autom ated 5992142408) message] The system which generated this result [...] diagnosis. Lab Interpretation Abnormal (test code = 86248-2) [facility] [facility] ([id number])2021-11-10 01:57:17 Test Item Value Reference Range Interpretation Comments NA (test code = 139 mmol/L 135-145 7129686342) K (test code = 3.9 mmol/L 3.5-5.0 0390017117) CL (test code = 106 mmol/L 98-108 8171070428) CO2 TOTAL (test code = 27 mmol/L 23-31 5368557699) AGAP (test code = 2-16 6251821117) BUN (test code = 17 mg/dL 7-23 0544993880) GLUCOSE (test code = 135 mg/dL 70-110 H 4135414751) CREATININE (test code = 0.72 mg/dL 0.50-1.04 5372837528) TOTAL BILI (test code = 0.3 mg/dL 0.1-1.6 2177958034) CALCIUM (test code = 8.1 mg/dL 8.6-10.6 L 0916809676) T PROTEIN (test code = 5.6 g/dL 6.3-8.2 L 2031352507) ALBUMIN (test code = 3.3 g/dL 3.5-5.0 L 3003990157) ALK PHOS (test code = 126 U/L 34-122 H 7116649890) ALTv (test code = 47 U/L 5-35 H 1742-6) AST(SGOT) (test code = 27 U/L 13-40 5623812949) eGFR (test code = mL/min/1.73m2 5385751228) LUCILLE (test code = LUCILLE) Association of [...] tests). Lab Interpretation Abnormal (test code = 23711-5) [facility] [id number] 01:51:44 Test Item Value Reference Range Interpretation Comments PH (test code = 2) 7.35-7.45 PCO2 (test code = See_Comment [Automat ed 7259156389) message] The sy stem which generated this result transmitted reference range : 35 - 45 mmHg. The reference range was not used to interpret this result as normal/abnormal . PO2 (test code = See_Comment L [Automated 4694376099) message] The sy stem which generated this result transmitted reference range : 80 - 100 mmHg. The reference range was not used to interpret this result as normal/abnormal . HCO3 (test code = See_Comment [Automate d 3014782396) message] The sy stem which generated this result transmitted reference range : 22 - 26 mEq/L. The reference range was not used to interpret this result as normal/abnormal . BE (test code = See_Comment [Automated 4643561328) message] The sy stem which generated this result transmitted reference range : -3.0 - 3.0 mEq/ L. The reference r nicholas was not used to interpret this result as normal/abnormal . LACTIC ACID (test code 4.25 mmol/L 0.50-2.20 H QUES = 0052780379) Lab Interpretation Abnormal (test code = 93864-5) [facility] WITH [id number] 01:50:58 Test Item Value Reference Range Interpretation [...] (test code = 55.7 fL 39.0-49.9 H 44715-9) RDW-CV (test code = 16.8 % 12.0-15.5 H 788-0) PLT (test code = See_Comment [Automated 777-3) message] The system which generated this result transmit britney reference range : 166 - 358 10*3/ ?L. The reference range was not u sed to interpret th is result as normal/abnormal . MPV (test code = 9.5 fL 9.5-12.9 32139-9) NRBC/100 WBC (test See_Comment [Automat ed code = 6762878404) message] The system which generated this result transmit britney reference range : 0.0 - 10.0 /100 WBCs. The reference range was not used to interpret this result as normal/abnormal . NRBC x10^3 (test code <0.01 See_Comment [Auto mated = 2545418668) message] The system which generated this result transmit britney reference range : 10*3/?L. The reference range was not used to interpret this result as normal/abnormal . GRAN MAT (NEUT) % 84.7 % (test code = 770-8) IMM GRAN % (test code 0.80 % = 3135453689) LYMPH % (test code = 10.9 % 736-9) MONO % (test code = 3.4 % 5905-5) EOS % (test code = 0.1 % 713-8) BASO % (test code = 0.1 % 706-2) GRAN MAT x10^3(ANC) 11.84 10*3/uL 1.88-7.09 H (test code = 9015821202) IMM GRAN x10^3 (test 0.11 10*3/uL 0.00-0.06 H code = 2652660667) LYMPH x10^3 (test code 1.52 10*3/uL 1.32-3.29 = 731-0) MONO x10^3 (test code 0.47 10*3/uL 0.33-0.92 = 742-7) EOS x10^3 (test code = <0.03 0.03-0.39 L 711-2) BASO x10^3 (test code <0.03 0.01-0.07 = 704-7) Lab Interpretation Abnormal (test code = 77122-0) [facility] CenterCYTO [id number] 21:38:57 Test Item Value Reference Range Interpretation Comments Case Report (test Non-Gynecologic Cytology code = 1979165824) ?Case: [id number] ?Authorizing Provider: ?Anaya Kline MD ? ? Collected: ? 10/21/2021 1249 ?Ordering Location: ? ? [facility] ?Received: ?10/21/2021 1257 ? Medicine/Surgery CLC 7B ?Pathologist: ? Glenna Alejandra MD ? Specimen: ? ?LUNG, LEFT UPPER LOBE, BRONCHOALVEOLAR LAVAGE ? Final Diagnosis (test p5viaOCtQIAvv4piXBMniZCj code = 5316493202) ZzEwMzNcZnRuYmpcdWMxIHtc cnRmMVxlcGljOTYwMVxhbnNp XQJcyHCfI4NuqobdKFuoXC1l JA7qzEluqFRdvZElNZWwVjCq e1nvt548hRZxn9caPRPOivcr sTg4hTgeN07lz3S2TvkxR3de ZWQwXGdyZWVuMFxibHVlMDt9 XHBhcGVydzEyMjQwXHBhcGVy iTU8SSDoPX5ayvolOHnfTZsd FTSskkT3FPEfeLXtI3RoPQKs AI2oxnliVVY7JHezWHUqCSW2 DkQgVAFdw0Vywli3ZjJhiRSt ZFxwbGFpblxmczIwXHBhclxi IEExLiAgTFVORywgTEVGVCBV TUYIYeNKO1NGFmCCFr2SL7yH TPgFIV3VQBEbBFDOUUdRIynd UCJsRzIxPHUtYvemAlOhZd9j NAJCGZpAVU7BUZRLCMyVABbL EL9WTBMANGYkJIsuQNBpB5AZ YURXYU2RUsBzXCErjmhbLlHe zXYteXottuOsSMzor1ZcL4Nu MjAwMFxhbnNpXGRlZmxhbmcx RWIzDLM6zpAbZVMkVOgfVXPd NBziWr0doZYbtJlrXdTdYXDh k7gcieISGLugPpOhG492TUOd AFiwc9uvn7VjGTPkxRDxo2E8 JWNPswrmtOb6o1bjCeKtPiZ7 gVDbVYnkK6wunqCbxDRcL8Jy gJYhjBp9sPqvR83nw9A6Dsst X4rwLFDoOTJwI7PrPI0dLQOb Otl7MNS0UDX6AQVdAKPfM3Hg OU5uQGSivEPoAOq3g2nctIyd PYNsSQU7j0huSDqpnqR1LT9r wb0njQc2u2bqqlFkNNGmLLZo yYSCYFSpV1SgkJrgKf5koJh7 bVoeIpwyKJU3Dmv7ZF2qpf84 hkh5cIhmFKPtmscqGyL7YDsn JDHshjdeDNp4ALfdCOZijYH3 LPAuqOLzH3BlUWMcER7ksds4 YUP2DDlgCFOaUxE9HTOzxAIn BPAilOilZDaub431KSJ2FkJk US4kD4Fxj3C0bM7gcWLgLVCk wSUxHbOmKVJwel2haNZkLDmb w4VcRME7tuW7qPWshGCxBXXz NO38Sojco9HlAdwpWAI5XVFv fiVvn0Cys7yvVjWtbcHaO6zj R2AxYOJlRANhCEJyJsDsmzHl i7Rhe6EqnMVvqSw6f8aoESHd LUGlbAjsy3pkSFI6DFAdE0Y6 eEXnl6qwRKgoBXWfyTU7mrB2 DYOhjXKsB7FqtJ9dIKKrSV8h rat0l5vxNGX0MVnpBTSiTbK3 ypP8ADBenJEeCKLieYzlVCwh t622JER1HiMoUQDiz4QhG4Ra gRiyY44coIvcN35sFVHrwPgm xJ4wvOiqbQ1fJvAtDyYvFSls bFxwbGFpblxmMVxmczIwXGxh qzqpSAGwZTspJ8spZyIuLKNf pLczZPifo6MfIXBnHXUzDlwr czIwXHBhciBJIGhhdmUgcGVy b64uAThatQMiVMGkZBrhDCUu mRzah4NlC3usZD7cM9AvpGVy wpEkkkWtQMbgCGOrq4d3eAXs xSvbp9AreNPmYF21dbJfDQWw BYG5UECgo9uoQZ16wjkaVwSw eT53rkTzniLiMGWlm3jvW8ll tFGtn7Dms7ZaizOoFEqhu6Md PI0rlQAgibippNP1RAJzaWAl krNclhK2aFtnTVCjbJ6pmM5c xJnioC4yWfDqMjYgCOjtBG8q VKZtK1accIKvGQAtZSQxW0nr AbGwtQ8lrKisQwhbfaP4CXIb cn19 Final Diagnosis t0onqILrVXAevWV4TtQwVNFp Comment (test code = a5rdj6GnwMUayEPwFQychPNj 6568617701) peLcpz44zNX5cZ21RZ1qSOVk CxS0PRHcknS5Kll9RPMlZFJc iTFrX376i3zeu1ydieFzlEF4 YRNlOQMmM1UeBX2vCBJkrNWo W05wvNXyBEQ7VHKgHISraDJv AVNxYQW4GLUvdSJvK2tbWKQw WG1ofeimHZobAHgbKGGboGI6 WQMawWGpE1WaFWIeZJtnXFTa pob8AmEpDf8qcKBslQnqKYie GUUiCGNrTBdqBRDdJaCjW30y IPQvXJFsc4fblE2enRt2BPKn r85utG6oZUFumPdzvOmxdEHg IWgvuoPwyhFsYhJ2YAPrfrRd mCQcGP1gO8DdyDueH9MzEtTL EHPrSCpcb1FoSV9fFUR6sKBc CeXlehJ5vR5mpOGrleDpMPUs QaSzR3YhMM9tWR4hhLggmsLr dCBjZWxscyBpZGVudGlmaWVk DycnWXXlU4NeJMQiee1= Clinical Information 1. Pneumonia / covid / (test code = SARS 0289251921) Gross Description m5npfMRyAFNdxNC3EuKmEXTd (test code = a1qex3TozNAofMPgKOnmpVNb 6480654025) iyReld67zWW3bI42WE3lMOMt HrC0OZDspuU0Icd6WXOwMYKb rAIcW855i6tlv3fvydGugEI3 KAAaMJGiY0NtKV9lAKQqwTTe T96lrSCzWYI9VFLnAAQbvQVf HKXoRWD4RMNfaQUxJ0kuZDQf RU2ogmtbMXvcGSdgAXJwlFU5 KSPgnWVhN5CsPIUbIGdbUENn fji4OfWpFu9yjKUzxTmpTFrx UOEyi1mcLBKhqVRoJGL3QSrh yDNsEEJcWDZrJGx4MLZzHNzu aSYiBH4hkOdlDurkzDcee4Zw dCBcXGlkIDUxMDAyIFxcZGIg R4TMXIFwLiNvJgs0UVPfBAr7 SHd7JP8QWuHkBHLcRbb8EVNt PeErWXv2YOczIE2MODQ6PzC7 LPOxKpzqPCPdLhPsDYi8UTIt XFxmbCBcXGYgQXJpYWwgXFxm kmImAEBdQF8idQdhwLIfuill czIwXHBhclxmczIyXHBhciBB VX2jZHyXSltaKJlQMkEfOLNZ RGBuUI8MSOqrKuXBMvSDT8IX VkVPTEFSIExBVkFHRVxwYXJc SuQiECtcHzRfLoVaNPe8BSMt MsOor3kbhAQbG4CxidKiKRTv qDCsIPR2ZTXuZ0Vxq9NoN4no RRSuJwo9gBOlwtCbXDs6NTXc XiMvg3vnnPJkMCKvUYAlnqId RBXsc4gnISWzIYyJvNTec2St acFzybMkPEQrfPnczrE2YEYg We5hWC5rk2EdoQAahzOtLEYG XNUtxpjoj4zyu1Rsl3CnpN0w ZClcZnMyMlxjZjAgIHtcZXBp N7ThZ6QcobL6p8hynXmsx0Nm fHRpHE5ktHTsaP== Disclaimer (test code z2kuePFyBDRov9rjQZNtrWLr = 5827252688) ZzEwMzNcZnRuYmpcdWMxIHtc anYoDReuv4NyP6ZpXyAnZRpo bnNpXGRlZmxhbmcxMDMzXGZ0 cjWiUKVfMDysHUDvKMxvHk8q yRDgrPyrEeOsDDXmn5fatsWW JMmaDrYuC405TNDfMBzwq7mb l6ZvPHOzvTRcv9W6QHMFvlki wAg4cKehK34gi8U4LgorX7sb DXWrQYBwQ0StEO3fQLScPnq0 QBE6LTD9TBLrQMCvU5QeFM1n CLGumRJeGRv7r2befPydIIOd CQB9s7ypUIlfukYvRI5pxc2t sDe8e2anbpQxJOTfKHQkdLXY YNKtZ2ZceCuoWr2xyOv0iRkq ZvzyDSP9Tya6ZK6iwd06foq1 lMjrXEUmztxzPgV9AQnvNJUa jxpkCTj1BNquBOMxvAZ9LMUo bJFmG1KiVEGdSN5xwsq3SHP0 MIwwRVByZjW8HVLfuFYrGZNi iVufXHcie661PBG6NeXyAD7t Y7Psv1L2rO6fkNYnNPXwiARh JuSuLNZpvf6avLOqMNufq0Cf GZM4voZ2cAApfETsRMKiCX62 Qlueu4MkAespj6CtO92bvBF3 SQadn0uhHQ6nBgY0mkSpIOlv s8ebmZ3vQoR3ZRkfBN2gUJ7m NPCkuN4znqeeUFIfFkIaksom GYUhiBkkbnDzLl1jrEjmXVF1 GLaiO5uhuI0qMtC1XQlqE2pz rX1zUXj0ZRdxzNT3EGNnzZ8i QS9gtxgxs3pqFXvhUDqoIZXj mbR1tpI0LUOflVQoF1OmyE6q ORYtEB2mwesjs3vwWCV1QYmx TDAsYQQ5XlKxPYSnz1Aqooe4 FvNmx6NsqBTsUAanU77vf302 IZRsicHkE1njuMDbpmdspWWd gylcYKqucnF5ZOMtrbHio2Jy MCWuTDN9YYvmLSvzeRXbQWEc bHdbr2xmI4OoaMXhISExFTmv XGYxXGZzMjBcbGFuZzEwMzNc aGljaFxmMVxkYmNoXGYxXGxv E6bfHoNvO7UyMVVgGdHvzDJf R1utWEzmkdIiSHLhghJobGU6 FDjlS3u4NHIduyQiwTp9qvRb TsXeHYQrANC6FTcvsFFoWMYs z2ReuywouFZsEd4obZPcAJSg sT8iBUMiZGDsNAxyVC5kxJh2 BEDKoBZbpCZmIwFOCKUdGG52 vgNeSSAFkecia8H6LOcaQEJa e9JxpRGxR5pnq1KpPXNwk90w BB8eu1E6m2ryOSP8SI3nw1Ro FNIspADniKGrVJHsv1Aksbju r6EfNQYiqmRbu7QnFEXltyQr uBYiTZIkncYbyb7oxcAvHDTm WKRyR6RqmibuhDoajeRpIJSe tq5aouEdKZW3DINJTWWkBBHk q4SvvO3jsCGFPDI2mSWdvx4x ngLJrLRiTMFztr09XVIbKN1x R8syGFXaYMPjyiIzeSCwp3Vb GPWulIF0zRKeGS9BZmSTv77t IGFuZCBEcnVnIEFkbWluaXN0 jlH8aK9jDNpMUSEhLnh+IFRo XORWYKQjXC0kvpRiy9OfzyBl lLgwUFJwzOOsc9SqnOSxu9Bs aLtrz4JpcHUirJVeWO4nKNPc clxwYXIgVVRNQiBMYWJvcmF0 z7BqWPNkSTGlHMF3mDmcasu3 LBQsgH2uCZIiB4bijkexDUmu UHPqf0UvsV5dgCOUyOHoc8Nd aNCxoSBRfDFhMI8ifmArLLmR OAtLEAL2rgMjVOBph4HqGXuw C7bhP91vyTigwWt3jGH4RGR1 xL0cSjm+IFxwYXJccGFyIEFw cFZkzPCvZYXsqEpwhiRmL1Xg deYdyD8qjGQpeoLsXX0yVE4g I0Q6sLXdSSXmewRhz7mkQNoz dmUgYmVlbiByZXZpZXdlZCBm y6XqNWlvVNT2NWqnlxQbefMl dWRpbmcgSCZFLCBTcGVjaWFs PHE0AMcrmyOxqlKkNA7goU2o dZioeR8dzYNsqHF4egteXGJg LVUjiPrzTUQlSD0mwXDbZGDz wkUFqWkfjDPqfA2bA5PaQQNw HJSghf2wXHThoK2eIUglo5Zx zeguTXBiNYDkRYZlacSurx9c ILZrzJXYQM1UZHvhgYMnr5Do myIwG9nMQVA9FVIqNeNeOmeo IHZhfRPcxSIzEEBszy76WFDz yS3ugUdoNYXewA2qxF2loLcv oT4jSlMhFiNaGMkaWQ8dLCOo Z5mayGRyOUXxZGMjL7pxAuHn wJ3krVpsIWouZrNvPsQpKQyr YXJ9fQ== Embedded Images (test code = 4151529912) [facility]ANTI[facility]CLE[facility] ANTIBODY [id number] 20:07:20 Test Item Value Reference Range Interpretation Comments SHIRA (test code = Negative Negative 3714834369) LUCILLE (test code = LUCILLE) Negative - [...] separately. Lab Interpretation (test Normal code = 71668-8) [facility] Center[facility]OL[facility] PAN[facility] (NA, K, CL, CO2, GLUCOSE, BUN, CREATININE, CA)2021-10-24 13:05:02 Test Item Value Reference Range Interpretation Comments NA (test code = 134 mmol/L 135-145 L 9719339525) K (test code = 4.5 mmol/L 3.5-5.0 1647058466) CL (test code = 99 mmol/L 98-108 0302928102) CO2 TOTAL (test code = 30 mmol/L 23-31 4057960147) AGAP (test code = 2-16 2788921417) BUN (test code = 23 mg/dL 7-23 7997334688) GLUCOSE (test code = 118 mg/dL 70-110 H 9685646604) CREATININE (test code = 0.71 mg/dL 0.50-1.04 4722375505) CALCIUM (test code = 8.2 mg/dL 8.6-10.6 L 5567260169) eGFR (test code = mL/min/1.73m2 0710623663) LUCILLE (test code = LUCILLE) Association of [...] tests). Lab Interpretation Abnormal (test code = 04235-8) [facility] METABOLIC PANEL (NA, K, CL, CO2, GLUCOSE, BUN, CREATININE, CA)2021-10-24 13:05:02 Test Item Value Reference Range Interpretation Comments NA (test code = 134 mmol/L 135-145 L 5987333689) K (test code = 4.5 mmol/L 3.5-5.0 6872401469) CL (test code = 99 mmol/L 98-108 1896429760) CO2 TOTAL (test code = 30 mmol/L 23-31 9854898428) AGAP (test code = 2-16 2373343434) BUN (test code = 23 mg/dL 7-23 8607941565) GLUCOSE (test code = 118 mg/dL 70-110 H 1716033080) CREATININE (test code = 0.71 mg/dL 0.50-1.04 9065296408) CALCIUM (test code = 8.2 mg/dL 8.6-10.6 L 7818252859) eGFR (test code = mL/min/1.73m2 5768574921) LUCILLE (test code = LUCILLE) Association of [...] tests). Lab Interpretation Abnormal (test code = 97813-2) [facility] WITHOUT [id number] 12:51:39 Test Item Value Reference Range Interpretation Comments WBC (test code = 6690-2) See_Comment H [A utomated message] The system [employer] generated this result transmit britney reference range : 4.30 - 11.10 10*3/?L. The reference range was not used to interpret this result as normal/abnormal . RBC (test code = 789-8) See_Comment [Au tomated message] The system [employer] generated this result transmit britney reference range [...] See_Comment H [Au tomated message] The system [facility] generated this result transmit britney reference range : 166 - 358 10*3/?L. The reference range was not used to interpret this result as normal/abnormal . MPV (test code = 10.1 fL 9.5-12.9 97070-1) RDW-CV (test code = 14.2 % 12.0-15.5 788-0) RDW-SD (test code = 43.8 fL 39.0-49.9 57686-4) NRBC x10^3 (test code = See_Comment [Au tomated message] 8606439456) The system [facility] generated this result transmit britney reference range : 10*3/?L. The reference range was not used to interpret this result as normal/abnormal . NRBC/100 WBC (test code See_Comment [Au tomated message] = 1372928167) The system [facility] generated this result transmit britney reference range : 0.0 - 10.0 /100 WBC s. The reference r nicholas was not used to interpret this result as normal/abnormal . IPF % (test code = 6664076112) Lab Interpretation (test Abnormal code = 70204-3) [facility] WITHOUT [id number] 12:51:39 Test Item Value Reference Range Interpretation Comments WBC (test code = 6690-2) See_Comment H [A utomated message] The system [facility] generated this result transmit britney reference range : 4.30 - 11.10 10*3/?L. The reference range was not used to interpret this result as normal/abnormal . RBC (test code = 789-8) See_Comment [Au tomated message] The system [employer] generated this result transmit britney reference range [...] See_Comment H [Au tomated message] The system [employer] generated this result transmit britney reference range : 166 - 358 10*3/?L. The reference range was not used to interpret this result as normal/abnormal . MPV (test code = 10.1 fL 9.5-12.9 81425-0) RDW-CV (test code = 14.2 % 12.0-15.5 788-0) RDW-SD (test code = 43.8 fL 39.0-49.9 47084-8) NRBC x10^3 (test code = See_Comment [Au tomated message] 8288003560) The system [employer] generated this result transmit britney reference range : 10*3/?L. The reference range was not used to interpret this result as normal/abnormal . NRBC/100 WBC (test code See_Comment [Au tomated message] = 8038261641) The system [facility] generated this result transmit britney reference range : 0.0 - 10.0 /100 WBC s. The reference r nicholas was not used to interpret this result as normal/abnormal . IPF % (test code = 2352011277) Lab Interpretation (test Abnormal code = 78166-4) [facility] CenterMYCOBACTERIUM TUBERCULOSIS COMPLEX PCR 2021-10-23 16:23:29 Test Item Value Reference Range Interpretation Comments Mycobacterium Negative Negative tuberculosis DNA (test code = 26490-7) LUCILLE (test code = LUCILLE) Method performance specifications have not been established for specimens other than SPUTUM. Results for other tested specimen types should be interpreted based on clinical context. Lab Interpretation Normal (test code = 00164-7) [facility] CenterMYCOBACTERIUM TUBERCULOSIS COMPLEX PCR 2021-10-23 16:23:29 Test Item Value Reference Range Interpretation Comments Mycobacterium Negative Negative tuberculosis DNA (test code = 02281-9) LUCILLE (test code = LUCILLE) Method performance specifications have not been established for specimens other than SPUTUM. Results for other tested specimen types should be interpreted based on clinical context. Lab Interpretation Normal (test code = 71282-9) [facility] CenterRESPIRATORY PANEL BY [id number] 20:36:40 Test Item Value Reference Range Interpretation Comments Adenovirus (test code = Negative Negative 65272-3) Coronavirus HKU1 (test Negative Negative code = 07948-8) Coronavirus NL63 (test Negative Negative code = 15211-7) Coronavirus 229E (test Negative Negative code = 92477-8) Coronavirus OC43 (test Negative Negative code = 19567-7) Human Metapneumovirus Negative Negative (test code = 10959-2) Human Negative Negative Rhinovirus/Enterovirus (test code = 44410-4) Influenza A (test code = Negative Negative 46317-6) Influenza B (test code = Negative Negative 60835-4) Parainfluenza Virus 1 Negative Negative (test code = 64394-0) Parainfluenza Virus 2 Negative Negative (test code = 99525-3) Parainfluenza Virus 3 Negative Negative (test code = 73505-9) Parainfluenza Virus 4 Negative Negative (test code = 22356-9) Respiratory Syncytial Negative Negative Virus (test code = 04245-6) Bordetella parapertussis Negative Negative (test code = 40200-2) Bordetella pertussis Negative Negative (test code = 58490-0) Chlamydia pneumoniae Negative Negative (test code = 90812-2) Mycoplasma pneumoniae Negative Negative (test code = 33216-1) LUCILLE (test code = LUCILLE) Negative:A negative result does not rule-out infection. ?This assay does not test for all potential infectious agents. ? Positive:A positive test result does not necessarily indicate the presence of viable organism. ? Lab Interpretation (test Normal code = 40061-4) [facility] CenterRESPIRATORY PANEL BY [id number] 20:36:40 Test Item Value Reference Range Interpretation Comments Adenovirus (test code = Negative Negative 91481-8) Coronavirus HKU1 (test Negative Negative code = 12650-2) Coronavirus NL63 (test Negative Negative code = 40316-6) Coronavirus 229E (test Negative Negative code = 69536-6) Coronavirus OC43 (test Negative Negative code = 06082-3) Human Metapneumovirus Negative Negative (test code = 46426-1) Human Negative Negative Rhinovirus/Enterovirus (test code = 96027-4) Influenza A (test code = Negative Negative 62172-2) Influenza B (test code = Negative Negative 67233-1) Parainfluenza Virus 1 Negative Negative (test code = 30475-7) Parainfluenza Virus 2 Negative Negative (test code = 25726-9) Parainfluenza Virus 3 Negative Negative (test code = 07947-5) Parainfluenza Virus 4 Negative Negative (test code = 21477-5) Respiratory Syncytial Negative Negative Virus (test code = 45029-5) Bordetella parapertussis Negative Negative (test code = 59354-8) Bordetella pertussis Negative Negative (test code = 26452-2) Chlamydia pneumoniae Negative Negative (test code = 58352-0) Mycoplasma pneumoniae Negative Negative (test code = 86027-6) LUCILLE (test code = LUCILLE) Negative:A negative result does not rule-out infection. ?This assay does not test for all potential infectious agents. ? Positive:A positive test result does not necessarily indicate the presence of viable organism. ? Lab Interpretation (test Normal code = 56528-9) [facility] CenterANTI-NUCLEAR ANTIBODY-PATHOLOGIST [id number] 19:52:54ANA - Pathologist InterpretationANA HEp-2 IIFA Pathologist [...] female gender. Clinical correlation is recommended. ? (https://pubmed.ncbi.nlm.nih.gov/05317754/) ? If the patient's clinical cond ition [...] indicated. Juanis Mata MD ?10/22/2021 ?1:52 PM [facility] LABORAT[facility] SERVICESUnMethodist Richardson Medical CenterANTI-NUCLEAR ANTIBODY- PATHOLOGIST [id number] 19:52:54ANA - Pathologist InterpretationANA HEp-2 II Pathologist [...] female gender. Clinical correlation is recommended. ? (https://pubmed.ncbi.nlm.nih.gov/64499634/) ? If the patient's clinical cond ition [...] indicated. Juanis Mata MD ?10/22/2021 ?1:52 PM [facility] SERVICESUn[facility] WITH [id number] 11:43:17 Test Item Value Reference Range Interpretation Comments WBC (test code = See_Comment H [Automated 8090-2) message] The system which generated this result transmit britney reference range : 4.30 - 11.10 10*3/?L. The reference range was not used to interpret this result as normal/abnormal . RBC (test code = See_Comment [Automated 139-8) message] The system which generated this result [...] RDW-SD (test code = 46.8 fL 39.0-49.9 58882-6) RDW-CV (test code = 14.6 % 12.0-15.5 788-0) PLT (test code = See_Comment H [Automated 777-3) message] The system which generated this result transmit britney reference range : 166 - 358 10*3/ ?L. The reference range was not u sed to interpret th is result as normal/abnormal . MPV (test code = 10.2 fL 9.5-12.9 06315-1) NRBC/100 WBC (test See_Comment [Automat ed code = [id number]) message] The system which generated this result transmit britney reference range : 0.0 - 10.0 /100 WBCs. The reference range was not used to interpret this result as normal/abnormal . NRBC x10^3 (test code <0.01 See_Comment [Auto mated = [id number]) message] The system which generated this result transmit britney reference range : 10*3/?L. The reference range was not used to interpret this result as normal/abnormal . GRAN MAT (NEUT) % 93.6 % (test code = 770-8) IMM GRAN % (test code 2.10 % = [id number]) LYMPH % (test code = 2.8 % 736-9) MONO % (test code = 1.4 % 5905-5) EOS % (test code = 0.0 % 713-8) BASO % (test code = 0.1 % 706-2) GRAN MAT x10^3(ANC) 17.50 10*3/uL 1.88-7.09 H (test code = [id number]) IMM GRAN x10^3 (test 0.40 10*3/uL 0.00-0.06 H code = 1358252179) LYMPH x10^3 (test code 0.53 10*3/uL 1.32-3.29 L = 731-0) MONO x10^3 (test code 0.26 10*3/uL 0.33-0.92 L = 742-7) EOS x10^3 (test code = <0.03 0.03-0.39 L 711-2) BASO x10^3 (test code <0.03 0.01-0.07 = 704-7) TOXIC CHANGES (test Present A code = 803-7) Lab Interpretation Abnormal (test code = 30167-0) [facility] WITH [id number] 11:43:17 Test Item Value Reference Range Interpretation Comments WBC (test code = See_Comment H [Automated 2090-2) message] The system which generated this result transmit britney reference range : 4.30 - 11.10 10*3/?L. The reference range was not used to interpret this result as normal/abnormal . RBC (test code = See_Comment [Automated 309-8) message] The system which generated this result [...] RDW-SD (test code = 46.8 fL 39.0-49.9 17678-1) RDW-CV (test code = 14.6 % 12.0-15.5 788-0) PLT (test code = See_Comment H [Automated 777-3) message] The system which generated this result transmit britney reference range : 166 - 358 10*3/ ?L. The reference range was not u sed to interpret th is result as normal/abnormal . MPV (test code = 10.2 fL 9.5-12.9 48184-6) NRBC/100 WBC (test See_Comment [Automat ed code = [id number]) message] The system which generated this result transmit britney reference range : 0.0 - 10.0 /100 WBCs. The reference range was not used to interpret this result as normal/abnormal . NRBC x10^3 (test code <0.01 See_Comment [Auto mated = [id number]) message] The system which generated this result transmit britney reference range : 10*3/?L. The reference range was not used to interpret this result as normal/abnormal . GRAN MAT (NEUT) % 93.6 % (test code = 770-8) IMM GRAN % (test code 2.10 % = [id number]) LYMPH % (test code = 2.8 % 736-9) MONO % (test code = 1.4 % 5905-5) EOS % (test code = 0.0 % 713-8) BASO % (test code = 0.1 % 706-2) GRAN MAT x10^3(ANC) 17.50 10*3/uL 1.88-7.09 H (test code = 2266077619) IMM GRAN x10^3 (test 0.40 10*3/uL 0.00-0.06 H code = [id number]) LYMPH x10^3 (test code 0.53 10*3/uL 1.32-3.29 L = 731-0) MONO x10^3 (test code 0.26 10*3/uL 0.33-0.92 L = 742-7) EOS x10^3 (test code = <0.03 0.03-0.39 L 711-2) BASO x10^3 (test code <0.03 0.01-0.07 = 704-7) TOXIC CHANGES (test Present A code = 803-7) Lab Interpretation Abnormal (test code = 41519-1) [facility] METABOLIC PANEL (NA, K, CL, CO2, GLUCOSE, BUN, CREATININE, CA)2021-10-22 11:20:32 Test Item Value Reference Range Interpretation Comments NA (test code = 136 mmol/L 135-145 [id number]) K (test code = 4.3 mmol/L 3.5-5.0 7330932726) CL (test code = 103 mmol/L 98-108 4852264948) CO2 TOTAL (test code = 26 mmol/L 23-31 7911402334) AGAP (test code = 2-16 8648018196) BUN (test code = 18 mg/dL 7-23 6649198302) GLUCOSE (test code = 185 mg/dL 70-110 H 7348306179) CREATININE (test code = 0.69 mg/dL 0.50-1.04 9211317920) CALCIUM (test code = 7.9 mg/dL 8.6-10.6 L 5741283009) eGFR (test code = mL/min/1.73m2 9760661498) LUCILLE (test code = LUCILLE) Association of [...] tests). Lab Interpretation Abnormal (test code = 73960-4) [facility] 11:20:32 Test Item Value Reference Range Interpretation Comments MAGNESIUM (test code = 5505479646) 2.2 mg/dL 1.7-2.4 Lab Interpretation (test code = Normal 27708-5) [facility] (NA, K, CL, CO2, GLUCOSE, BUN, CREATININE, CA)2021-10-22 11:20:32 Test Item Value Reference Range Interpretation Comments NA (test code = 136 mmol/L 135-145 1013249747) K (test code = 4.3 mmol/L 3.5-5.0 6950980747) CL (test code = 103 mmol/L 98-108 6608922302) CO2 TOTAL (test code = 26 mmol/L 23-31 8590167668) AGAP (test code = 2-16 3272776289) BUN (test code = 18 mg/dL 7-23 7695523686) GLUCOSE (test code = 185 mg/dL 70-110 H 9472925573) CREATININE (test code = 0.69 mg/dL 0.50-1.04 3714631339) CALCIUM (test code = 7.9 mg/dL 8.6-10.6 L 7933495841) eGFR (test code = mL/min/1.73m2 4859623674) LUCILLE (test code = LUCILLE) Association of [...] tests). Lab Interpretation Abnormal (test code = 35037-7) [facility] 11:20:32 Test Item Value Reference Range Interpretation Comments MAGNESIUM (test code = 3564436658) 2.2 mg/dL 1.7-2.4 Lab Interpretation (test code = Normal 81767-2) [facility] [id number] 23:01:06 Test Item Value Reference Range Interpretation Comments Blood Culture-Aerobic No organisms No growth Previo us (test code = 85011-2) isolated prelim inary verified result was Culture In Progress on 10/16/2021 at 20 02 CSTPrevious preliminary verified result was No growth a t 24 hours on 10/17/2021 at 17 01 CSTPrevious preliminary verified result was No growth a t 48 hours on 10/18/2021 at 17 01 CSTPrevious preliminary verified result was No growth a t 72 hours on 10/19/2021 at 17 02 [employer] Blood No organisms No growth Previous Culture-Anaerobic isolated preliminar y (test code = 85840-8) verifi ed result was Culture In Progress on 10/16/2021 at 20 02 CSTPrevious preliminary verified result was No growth a t 24 hours on 10/17/2021 at 17 01 CSTPrevious preliminary verified result was No growth a t 48 hours on 10/18/2021 at 17 01 CSTPrevious preliminary verified result was No growth a t 72 hours on 10/19/2021 at 17 02 [employer] Lab Interpretation Normal (test code = 56707-2) [facility] [id number] 23:01:06 Test Item Value Reference Range Interpretation Comments Blood Culture-Aerobic No organisms No growth Previo us (test code = 65969-0) isolated prelim inary verified result was Culture In Progress on 10/16/2021 at 20 02 CSTPrevious preliminary verified result was No growth a t 24 hours on 10/17/2021 at 17 01 CSTPrevious preliminary verified result was No growth a t 48 hours on 10/18/2021 at 17 02 CSTPrevious preliminary verified result was No growth a t 72 hours on 10/19/2021 at 17 02 [employer] Blood No organisms No growth Previous Culture-Anaerobic isolated preliminar y (test code = 38492-5) verifi ed result was Culture In Progress on 10/16/2021 at 20 02 CSTPrevious preliminary verified result was No growth a t 24 hours on 10/17/2021 at 17 01 CSTPrevious preliminary verified result was No growth a t 48 hours on 10/18/2021 at 17 02 CSTPrevious preliminary verified result was No growth a t 72 hours on 10/19/2021 at 17 02 [employer] Lab Interpretation Normal (test code = 34993-5) [facility] CULTURE [id number] 23:01:06 Test Item Value Reference Range Interpretation Comments Blood Culture-Aerobic No organisms No growth Previo us (test code = 27864-3) isolated prelim inary verified result was Culture In Progress on 10/16/2021 at 20 02 CSTPrevious preliminary verified result was No growth a t 24 hours on 10/17/2021 at 17 01 CSTPrevious preliminary verified result was No growth a t 48 hours on 10/18/2021 at 17 01 CSTPrevious preliminary verified result was No growth a t 72 hours on 10/19/2021 at 17 02 [employer] Blood No organisms No growth Previous Culture-Anaerobic isolated preliminar y (test code = 47921-9) verifi ed result was Culture In Progress on 10/16/2021 at 20 02 CSTPrevious preliminary verified result was No growth a t 24 hours on 10/17/2021 at 17 01 CSTPrevious preliminary verified result was No growth a t 48 hours on 10/18/2021 at 17 01 CSTPrevious preliminary verified result was No growth a t 72 hours on 10/19/2021 at 17 02 [employer] Lab Interpretation Normal (test code = 58834-8) [facility] [id number] 23:01:06 Test Item Value Reference Range Interpretation Comments Blood Culture-Aerobic No organisms No growth Previo us (test code = 92183-0) isolated prelim inary verified result was Culture In Progress on 10/16/2021 at 20 02 CSTPrevious preliminary verified result was No growth a t 24 hours on 10/17/2021 at 17 01 CSTPrevious preliminary verified result was No growth a t 48 hours on 10/18/2021 at 17 02 CSTPrevious preliminary verified result was No growth a t 72 hours on 10/19/2021 at 17 02 [employer] Blood No organisms No growth Previous Culture-Anaerobic isolated preliminar y (test code = 18002-6) verifi ed result was Culture In Progress on 10/16/2021 at 20 02 CSTPrevious preliminary verified result was No growth a t 24 hours on 10/17/2021 at 17 01 CSTPrevious preliminary verified result was No growth a t 48 hours on 10/18/2021 at 17 02 CSTPrevious preliminary verified result was No growth a t 72 hours on 10/19/2021 at 17 02 [employer] Lab Interpretation Normal (test code = 08385-5) [facility] CenterAC [facility] 20 + LACTIC [id number] 20:42:21 Test Item Value Reference Range Interpretation Comments PH (test code = 2) 7.35-7.45 PCO2 (test code = See_Comment [Automat ed 4546819954) message] The sy stem which generated this result transmitted reference range : 35 - 45 mmHg. The reference range was not used to interpret this result as normal/abnormal . PO2 (test code = See_Comment H [Automated 4454117173) message] The sy stem which generated this result transmitted reference range : 80 - 100 mmHg. The reference range was not used to interpret this result as normal/abnormal . HCO3 (test code = See_Comment [Automate d 9021512736) message] The sy stem which generated this result transmitted reference range : 22 - 26 mEq/L. The reference range was not used to interpret this result as normal/abnormal . BE (test code = See_Comment [Automated 2962974321) message] The sy stem which generated this result transmitted reference range : -3.0 - 3.0 mEq/ L. The reference r nicholas was not used to interpret this result as normal/abnormal . THB (test code = 12.1 g/dL 12.0-16.0 3518422155) %O2HB (test code = 99.5 % 94.0-99.0 H 5572798883) %COHB ART (test code = 0.1 % 0.0-1.5 1721306602) %METHB ART (test code = 0.1 % 0.4-1.5 L 7554526533) VOL%O2 ART (test code = 17.8 % 15.0-23.0 6234087073) NA (test code = 135 mmol/L 135-145 9008659843) K+ (test code = 4.3 mmol/L 3.5-5.0 2264378195) AC CA IONZ (test code = 4.50 mg/dL 4.50-5.30 7959198584) GLUCOSE (test code = 108 mg/dL 70-110 7230294670) LACTIC ACID (test code 2.19 mmol/L 0.50-2.20 = 9158727756) Lab Interpretation Abnormal (test code = 32489-3) [facility] + LACTIC [id number] 20:42:21 Test Item Value Reference Range Interpretation Comments PH (test code = 2) 7.35-7.45 PCO2 (test code = See_Comment [Automat ed 3963686250) message] The sy stem which generated this result transmitted reference range : 35 - 45 mmHg. The reference range was not used to interpret this result as normal/abnormal . PO2 (test code = See_Comment H [Automated 0027147083) message] The sy stem which generated this result transmitted reference range : 80 - 100 mmHg. The reference range was not used to interpret this result as normal/abnormal . HCO3 (test code = See_Comment [Automate d 7236569984) message] The sy stem which generated this result transmitted reference range : 22 - 26 mEq/L. The reference range was not used to interpret this result as normal/abnormal . BE (test code = See_Comment [Automated 3159463115) message] The sy stem which generated this result transmitted reference range : -3.0 - 3.0 mEq/ L. The reference r nicholas was not used to interpret this result as normal/abnormal . THB (test code = 12.1 g/dL 12.0-16.0 1214366710) %O2HB (test code = 99.5 % 94.0-99.0 H 5192159239) %COHB ART (test code = 0.1 % 0.0-1.5 2349679294) %METHB ART (test code = 0.1 % 0.4-1.5 L 5855813712) VOL%O2 ART (test code = 17.8 % 15.0-23.0 7487404406) NA (test code = 135 mmol/L 135-145 9547084151) K+ (test code = 4.3 mmol/L 3.5-5.0 3630646642) AC CA IONZ (test code = 4.50 mg/dL 4.50-5.30 2301288744) GLUCOSE (test code = 108 mg/dL 70-110 3892616338) LACTIC ACID (test code 2.19 mmol/L 0.50-2.20 = 0198751996) Lab Interpretation Abnormal (test code = 13685-6) [facility] CenterANGIOTENSIN CONVERTING [id number] 20:19:53 Test Item Value Reference Range Interpretation Comments MELLY (test code = 28 U/L 9-67 Performed B y: ARUP 2742-5) [address] [place] [id number] Director: Korin Barillas MD [facility] CenterANGIOTENSIN CONVERTING [id number] 20:19:53 Test Item Value Reference Range Interpretation Comments MELLY (test code = 28 U/L 9-67 Performed B y: ARUP 2742-5) [address] [place] [address] [id number] Director: Korin Barillas MD [facility] FLUID MANUAL [id number] 19:44:45 Test Item Value Reference Range Interpretation Comments BF SEGS% (test code = 76642-9) 2 % BF LYMPHS% (test code = 48463-4) 12 % BF MACROPHAGE% (test code = 54807-1) 86 % BF #CELLS CNTD (test code = 2345123989) cells/uL [facility] FLUID MANUAL [id number] 19:44:45 Test Item Value Reference Range Interpretation Comments BF SEGS% (test code = 26620-2) 2 % BF LYMPHS% (test code = 23212-9) 12 % BF MACROPHAGE% (test code = 92583-2) 86 % BF #CELLS CNTD (test code = 7666269446) cells/uL [facility] FLUID DIRECT [id number] 19:44:30 Test Item Value Reference Range Interpretation Comments BF COLOR Clear (test code = 9778312211) BF WBC Count See_Comment [Automated (test code = message] The sy stem 1872354100) which generated this result transmitted reference range : /?L. The refere nce range was not u sed to interpret th is result as normal/abnormal . BF RBC Count <3000 See_Comment [Automated (test code = message] The sy stem 8375656621) which generated this result transmitted reference range [...] [facility] FLUID DIRECT [id number] 19:44:30 Test Item Value Reference Range Interpretation Comments BF COLOR Clear (test code = 9805465946) BF WBC Count See_Comment [Automated (test code = message] The sy stem 8963713459) which generated this result transmitted reference range : /?L. The refere nce range was not u sed to interpret th is result as normal/abnormal . BF RBC Count <3000 See_Comment [Automated (test code = message] The sy stem 2640068823) which generated this result transmitted reference range : /?L. The refere nce range was not u sed to interpret th is result as normal/abnormal . LUCILLE (test The reference range code = LUCILLE) and other method performance specifications have not been established for this body fluid. ?The test results must be integrated into the clinical context for interpretation. [facility] WITH [id number] 19:27:30 Test Item Value Reference Range Interpretation [...] RDW-SD (test code = 45.8 fL 39.0-49.9 22633-5) RDW-CV (test code = 14.4 % 12.0-15.5 788-0) PLT (test code = See_Comment H [Automated 777-3) message] The system which generated this result transmit britney reference range : 166 - 358 10*3/ ?L. The reference range was not u sed to interpret th is result as normal/abnormal . MPV (test code = 10.4 fL 9.5-12.9 70710-6) NRBC/100 WBC (test See_Comment [Automat ed code = 6181435754) message] The system which generated this result transmit britney reference range : 0.0 - 10.0 /100 WBCs. The reference range was not used to interpret this result as normal/abnormal . NRBC x10^3 (test code See_Comment [Auto mated = 1721724889) message] The system which generated this result transmit britney reference range : 10*3/?L. The reference range was not used to interpret this result as normal/abnormal . SEG % (test code = 84 % 33-76 H 92024-3) BAND % (test code = 8 % 0-1 H 61161-6) MYELO % (test code = 2 % See_Comment H [Autom ated 10868-4) message] The system which generated this result transmit britney reference range : <=0. The refere nce range was not u sed to interpret th is result as normal/abnormal . LYMPH % (test code = 4 % 14-54 L 09085-0) MONO % (test code = 2 % 0-4 61953-3) ANC (test code = 21.16 10*3/uL 1.88-7.09 H 753-4) Lab Interpretation Abnormal (test code = 62412-2) [facility] WITH [id number] 19:27:30 Test Item Value Reference Range Interpretation [...] RDW-SD (test code = 45.8 fL 39.0-49.9 86096-1) RDW-CV (test code = 14.4 % 12.0-15.5 788-0) PLT (test code = See_Comment H [Automated 777-3) message] The system which generated this result transmit britney reference range : 166 - 358 10*3/ ?L. The reference range was not u sed to interpret th is result as normal/abnormal . MPV (test code = 10.4 fL 9.5-12.9 23282-6) NRBC/100 WBC (test See_Comment [Automat ed code = 9045037701) message] The system which generated this result transmit britney reference range : 0.0 - 10.0 /100 WBCs. The reference range was not used to interpret this result as normal/abnormal . NRBC x10^3 (test code See_Comment [Auto mated = 5454628953) message] The system which generated this result transmit britney reference range : 10*3/?L. The reference range was not used to interpret this result as normal/abnormal . SEG % (test code = 84 % 33-76 H 63100-5) BAND % (test code = 8 % 0-1 H 33792-4) MYELO % (test code = 2 % See_Comment H [Autom ated 15881-0) message] The system which generated this result transmit britney reference range : <=0. The refere nce range was not u sed to interpret th is result as normal/abnormal . LYMPH % (test code = 4 % 14-54 L 77180-2) MONO % (test code = 2 % 0-4 96573-4) ANC (test code = 21.16 10*3/uL 1.88-7.09 H 753-4) Lab Interpretation Abnormal (test code = 55342-7) [facility] METABOLIC PANEL (NA, K, CL, CO2, GLUCOSE, BUN, CREATININE, CA)2021-10-21 19:20:26 Test Item Value Reference Range Interpretation Comments NA (test code = 125 mmol/L 135-145 L 5919321468) K (test code = 4.4 mmol/L 3.5-5.0 Slight 3138700911) hemolysis CL (test code = 98 mmol/L 98-108 5943876268) CO2 TOTAL (test code 19 mmol/L 23-31 L = 3348157525) AGAP (test code = 2-16 3419169696) BUN (test code = 21 mg/dL 7-23 Slight 5743935819) hemolysis GLUCOSE (test code = 155 mg/dL 70-110 H 8202522450) CREATININE (test code 0.63 mg/dL 0.50-1.04 = 9676352773) CALCIUM (test code = 6.9 mg/dL 8.6-10.6 L 9109117709) eGFR (test code = mL/min/1.73m2 0042010414) LUCILLE (test code = LUCILLE) Association of [...] tests). Lab Interpretation Abnormal (test code = 55295-2) [facility] (NA, K, CL, CO2, GLUCOSE, BUN, CREATININE, CA)2021-10-21 19:20:26 Test Item Value Reference Range Interpretation Comments NA (test code = 125 mmol/L 135-145 L 2145308552) K (test code = 4.4 mmol/L 3.5-5.0 Slight 7476666078) hemolysis CL (test code = 98 mmol/L 98-108 5586898130) CO2 TOTAL (test code 19 mmol/L 23-31 L = 5941441024) AGAP (test code = 2-16 5321143068) BUN (test code = 21 mg/dL 7-23 Slight 6582860246) hemolysis GLUCOSE (test code = 155 mg/dL 70-110 H 3070831955) CREATININE (test code 0.63 mg/dL 0.50-1.04 = 1630707010) CALCIUM (test code = 6.9 mg/dL 8.6-10.6 L 0074146729) eGFR (test code = mL/min/1.73m2 3765038893) LUCILLE (test code = LUCILLE) Association of [...] tests). Lab Interpretation Abnormal (test code = 58860-9) [facility]2022-02-18 19:12:03 Test Item Value Reference Range Interpretation Comments Fibrinogen (test code = 2365648252) 585 mg/dL 167-453 H Lab Interpretation (test code = Abnormal 72924-2) [facility] CenterPROTHROMBIN TIME / [id number] 19:12:03 Test Item Value Reference Range Interpretation Comments PROTIME PATIENT (test See_Comment H [Auto mated message] code = 5964-2) The system [email or web address] generated this result transmitted ref erence range: 10.1 - 1 2.6 Seconds. The reference range was not used to int erpret this result as normal/abnormal . INR (test code = 6301-6) Nor mal INR <1.1; Warfarin Therap eutic range 2.0 to 3. 0 or 2.5 to 3.5, dep ending upon the indica tions. Lab Interpretation (test Abnormal code = 64957-4) [facility] Center[facility]IB[facility]EN2022-02-18 19:12:03 Test Item Value Reference Range Interpretation Comments Fibrinogen (test code = 7804292906) 585 mg/dL 167-453 H Lab Interpretation (test code = Abnormal 54468-3) [facility] CenterPROTHROMBIN TIME / [id number] 19:12:03 Test Item Value Reference Range Interpretation Comments PROTIME PATIENT (test See_Comment H [Auto mated message] code = 5964-2) The system [email or web address] generated this result transmitted ref erence range: 10.1 - 1 2.6 Seconds. The reference range was not used to int erpret this result as normal/abnormal . INR (test code = 6301-6) Nor mal INR <1.1; Warfarin Therap eutic range 2.0 to 3. 0 or 2.5 to 3.5, dep ending upon the indica tions. Lab Interpretation (test Abnormal code = 21439-2) [facility] CenterURIC [id number] 04:54:18 Test Item Value Reference Range Interpretation Comments URIC ACID (test code = 3744484618) 4.3 mg/dL 2.9-6.0 Lab Interpretation (test code = Normal 16701-5) [facility] CenterURIC [id number] 04:54:18 Test Item Value Reference Range Interpretation Comments URIC ACID (test code = 1652651971) 4.3 mg/dL 2.9-6.0 Lab Interpretation (test code = Normal 57158-3) [facility] CenterTransthoracic echo (TTE)2021-10-20 20:54:06 Test Item Value Reference Range Interpretation Comments EF(Teich) (test code = 63.80 % 4994489365) LVIDD (test code = 4.40 cm 5110935978) LVIDS (test code = 2.90 cm 8965478814) IVS (test code = 0.86 cm 6522035508) LVPWD (test code = 0.86 cm 8478180528) LVOT diameter (test code 2.00 cm = 7872968961) FS (test code = 35 % 3010424300) LA size (test code = 3.4 cm 6545659007) LAV(MOD-sp4) (test code = 41.40 mL 3674861272) Ao root annulus (test 2.44 cm code = 6381921133) Ao root diam (test code = 2.44 cm 3787228603) Aortic root (test code = 2.44 cm 8254603397) PW (test code = 0.86 cm 0.6-1.1 1368361392) EF - 2D (test code = 63.80 % 01901191) Interventricular Septum 0.86 cm Diastolic Thickness by 2D (test code = 1576375) Radiology Study observation (narrative) (test code = 56988-3) LUCILLE (test code = LUCILLE) ?Left?Ventricle: Left ventricle is normal in size and function. Normal wall thickness. Normal systolic function with a visually estimated EF of 55 - 60%. ?Aortic?Valve: Aortic valve is normal in structure and function. ?Mitral?Valve: Mitral valve is normal in structure and function. VitalsHeight Weight BSA (Calculated - sq m) BP Pulse 60 220lb ? ?114/63 81 [facility] CenterTran[facility] (TTE)2021-10-20 20:54:06 Test Item Value Reference Range Interpretation Comments EF(Teich) (test code = 63.80 % 0228731108) LVIDD (test code = 4.40 cm 9503367756) LVIDS (test code = 2.90 cm 4825433086) IVS (test code = 0.86 cm 7276483900) LVPWD (test code = 0.86 cm 1914552723) LVOT diameter (test code 2.00 cm = 7415703867) FS (test code = 35 % 4774672456) LA size (test code = 3.4 cm 4616905176) LAV(MOD-sp4) (test code = 41.40 mL 3023907815) Ao root annulus (test 2.44 cm code = 0728837262) Ao root diam (test code = 2.44 cm 3725609172) Aortic root (test code = 2.44 cm 5936012250) PW (test code = 0.86 cm 0.6-1.1 6716699428) EF - 2D (test code = 63.80 % 99254877) Interventricular Septum 0.86 cm Diastolic Thickness by 2D (test code = 6686034) Radiology Study observation (narrative) (test code = 87321-5) LUCILLE (test code = LUCILLE) ?Left?Ventricle: Left ventricle is normal in size and function. Normal wall thickness. Normal systolic function with a visually estimated EF of 55 - 60%. ?Aortic?Valve: Aortic valve is normal in structure and function. ?Mitral?Valve: Mitral valve is normal in structure and function. VitalsHeight Weight BSA (Calculated - sq m) BP Pulse 60 220lb ? ?114/63 81 [facility] WITH [id number] 11:09:20 Test Item Value Reference Range Interpretation [...] RDW-SD (test code = 46.3 fL 39.0-49.9 19316-1) RDW-CV (test code = 14.5 % 12.0-15.5 788-0) PLT (test code = See_Comment [Automated 777-3) message] The system which generated this result transmit britney reference range : 166 - 358 10*3/ ?L. The reference range was not u sed to interpret th is result as normal/abnormal . MPV (test code = 9.9 fL 9.5-12.9 14732-0) NRBC/100 WBC (test See_Comment [Automat ed code = 4232674940) message] The system which generated this result transmit britney reference range : 0.0 - 10.0 /100 WBCs. The reference range was not used to interpret this result as normal/abnormal . NRBC x10^3 (test code <0.01 See_Comment [Auto mated = 2319346382) message] The system which generated this result transmit britney reference range : 10*3/?L. The reference range was not used to interpret this result as normal/abnormal . GRAN MAT (NEUT) % 89.9 % (test code = 770-8) IMM GRAN % (test code 2.90 % = 9236507164) LYMPH % (test code = 4.2 % 736-9) MONO % (test code = 2.9 % 5905-5) EOS % (test code = 0.0 % 713-8) BASO % (test code = 0.1 % 706-2) GRAN MAT x10^3(ANC) 14.51 10*3/uL 1.88-7.09 H (test code = 2325091377) IMM GRAN x10^3 (test 0.46 10*3/uL 0.00-0.06 H code = 7931246947) LYMPH x10^3 (test code 0.67 10*3/uL 1.32-3.29 L = 731-0) MONO x10^3 (test code 0.47 10*3/uL 0.33-0.92 = 742-7) EOS x10^3 (test code = <0.03 0.03-0.39 L 711-2) BASO x10^3 (test code <0.03 0.01-0.07 = 704-7) TOXIC CHANGES (test Present A code = 803-7) Lab Interpretation Abnormal (test code = 39015-9) [facility] WITH [id number] 11:09:20 Test Item Value Reference Range Interpretation [...] RDW-SD (test code = 46.3 fL 39.0-49.9 35375-8) RDW-CV (test code = 14.5 % 12.0-15.5 788-0) PLT (test code = See_Comment [Automated 777-3) message] The system which generated this result transmit britney reference range : 166 - 358 10*3/ ?L. The reference range was not u sed to interpret th is result as normal/abnormal . MPV (test code = 9.9 fL 9.5-12.9 14751-7) NRBC/100 WBC (test See_Comment [Automat ed code = 1138685461) message] The system which generated this result transmit britney reference range : 0.0 - 10.0 /100 WBCs. The reference range was not used to interpret this result as normal/abnormal . NRBC x10^3 (test code <0.01 See_Comment [Auto mated = 4767367861) message] The system which generated this result transmit britney reference range : 10*3/?L. The reference range was not used to interpret this result as normal/abnormal . GRAN MAT (NEUT) % 89.9 % (test code = 770-8) IMM GRAN % (test code 2.90 % = 5198817351) LYMPH % (test code = 4.2 % 736-9) MONO % (test code = 2.9 % 5905-5) EOS % (test code = 0.0 % 713-8) BASO % (test code = 0.1 % 706-2) GRAN MAT x10^3(ANC) 14.51 10*3/uL 1.88-7.09 H (test code = 7348098062) IMM GRAN x10^3 (test 0.46 10*3/uL 0.00-0.06 H code = 9358319488) LYMPH x10^3 (test code 0.67 10*3/uL 1.32-3.29 L = 731-0) MONO x10^3 (test code 0.47 10*3/uL 0.33-0.92 = 742-7) EOS x10^3 (test code = <0.03 0.03-0.39 L 711-2) BASO x10^3 (test code <0.03 0.01-0.07 = 704-7) TOXIC CHANGES (test Present A code = 803-7) Lab Interpretation Abnormal (test code = 43941-8) [facility] METABOLIC PANEL (NA, K, CL, CO2, GLUCOSE, BUN, CREATININE, CA)2021-10-20 10:55:22 Test Item Value Reference Range Interpretation Comments NA (test code = 136 mmol/L 135-145 0867710611) K (test code = 4.1 mmol/L 3.5-5.0 8159550678) CL (test code = 108 mmol/L 98-108 7838993783) CO2 TOTAL (test code = 25 mmol/L 23-31 1368505592) AGAP (test code = 2-16 5506573371) BUN (test code = 23 mg/dL 7-23 9881981463) GLUCOSE (test code = 134 mg/dL 70-110 H 5149395595) CREATININE (test code = 0.67 mg/dL 0.50-1.04 4328937398) CALCIUM (test code = 7.5 mg/dL 8.6-10.6 L 2823196863) eGFR (test code = mL/min/1.73m2 6435274449) LUCLILE (test code = LUCILLE) Association of Glomerular [...] tests). Lab Interpretation Abnormal (test code = 19328-5) [facility] METABOLIC PANEL (NA, K, CL, CO2, GLUCOSE, BUN, CREATININE, CA)2021-10-20 10:55:22 Test Item Value Reference Range Interpretation Comments NA (test code = 136 mmol/L 135-145 9840396974) K (test code = 4.1 mmol/L 3.5-5.0 8058817002) CL (test code = 108 mmol/L 98-108 3497589874) CO2 TOTAL (test code = 25 mmol/L 23-31 7722928176) AGAP (test code = 2-16 1968523864) BUN (test code = 23 mg/dL 7-23 8375592703) GLUCOSE (test code = 134 mg/dL 70-110 H 6917975214) CREATININE (test code = 0.67 mg/dL 0.50-1.04 4408140026) CALCIUM (test code = 7.5 mg/dL 8.6-10.6 L 1468781434) eGFR (test code = mL/min/1.73m2 4148163184) LUCILLE (test code = LUCILLE) Association of [...] tests). Lab Interpretation Abnormal (test code = 38949-1) [facility] [id number] 21:49:45 Test Item Value Reference Range Interpretation Comments ANTI-DSDNA (test code See_Comment [Auto mated = 1998604202) message] The system which generated this result transmit britney reference range : 0.0 - 4.0 IU/mL . The reference range was not u sed to interpret th is result as normal/abnormal . LUCILLE (test code = LUCILLE) Negative ? ?< or = 4 IU/mLPositive ? ? ?> or = 10 IU/mLIndetermin ate ?5-9 IU/mL Lab Interpretation Normal (test code = 72108-4) [facility] [id number] 21:49:45 Test Item Value Reference Range Interpretation Comments ANTI-DSDNA (test code See_Comment [Auto mated = 0947681183) message] The system which generated this result transmit britney reference range : 0.0 - 4.0 IU/mL . The reference range was not u sed to interpret th is result as normal/abnormal . LUCILLE (test code = LUCILLE) Negative ? ?< or = 4 IU/mLPositive ? ? ?> or = 10 IU/mLIndetermin ate ?5-9 IU/mL Lab Interpretation Normal (test code = 80073-6) [facility] [id number] 21:43:06 Test Item Value Reference Range Interpretation Comments RF (test code = <20 See_Comment [Automated message] 6370388056) The system [employer] generated this result transmitted ref erence range: <20 IU/m L. The reference range was not used to int erpret this result as normal/abnormal . Lab Interpretation (test Normal code = 46957-6) [facility] [id number] 21:43:06 Test Item Value Reference Range Interpretation Comments RF (test code = <20 See_Comment [Automated message] 1983272964) The system [employer] generated this result transmitted ref erence range: <20 IU/m L. The reference range was not used to int erpret this result as normal/abnormal . Lab Interpretation (test Normal code = 72214-3) [facility]ANT[facility] ANT[facility] [id number] 20:22:55 Test Item Value Reference Range Interpretation Comments SHIRA Titer by IFA <=1:80 (test code = 8241326538) SHIRA Pattern (test SHIRA screen was positive code = 7691935982) at the 1:80 dilution but with low [...] specimen will be held for 7 days. [facility] [id number] 20:22:55 Test Item Value Reference Range Interpretation Comments SHIRA Titer by IFA <=1:80 (test code = 7810860839) SHIRA Pattern (test SHIRA screen was positive code = 5929533587) at the 1:80 dilution but with low [...] specimen will be held for 7 days. [facility] CenterANCA [id number] 18:12:04 Test Item Value Reference Range Interpretation Comments Myeloperoxidase (MPO) Negative Negative Antibodies, IgG Interpretation (test code = 54757-6) Proteinase 3 (PR3) Negative Negative Antibodies, IgG Interpretation (test code = 31034-5) Myeloperoxidase (MPO) <0.3 See_Comment [Auto mated Antibodies, IgG (test messag e] The code = 4172108375) system [facility] generated this result transmitted reference range : <=3.5 U/mL. The reference range was not used to interpret this result as normal/abnormal . Proteinase 3 (PR3) <0.7 See_Comment [Automat ed Antibodies, IgG (test messag e] The code = 3546044759) system [facility] generated this result transmitted reference range : [...] weeks. Lab Interpretation Normal (test code = 24309-7) [facility] CenterANCA [id number] 18:12:04 Test Item Value Reference Range Interpretation Comments Myeloperoxidase (MPO) Negative Negative Antibodies, IgG Interpretation (test code = 29274-2) Proteinase 3 (PR3) Negative Negative Antibodies, IgG Interpretation (test code = 95630-1) Myeloperoxidase (MPO) <0.3 See_Comment [Auto mated Antibodies, IgG (test messag e] The code = 1868371856) system [facility] generated this result transmitted reference range : <=3.5 U/mL. The reference range was not used to interpret this result as normal/abnormal . Proteinase 3 (PR3) <0.7 See_Comment [Automat ed Antibodies, IgG (test messag e] The code = 3459449099) system [facility] generated this result transmitted reference range : [...] weeks. Lab Interpretation Normal (test code = 36013-6) [facility] Test Item Value Reference Range Interpretation Comments MAGNESIUM (test code = 4171066548) 2.9 mg/dL 1.7-2.4 H Lab Interpretation (test code = Abnormal 79573-6) [facility] 10:47:40 Test Item Value Reference Range Interpretation Comments MAGNESIUM (test code = 5340839779) 2.9 mg/dL 1.7-2.4 H Lab Interpretation (test code = Abnormal 13462-4) [facility] WITH [id number] 09:31:49 Test Item Value Reference Range Interpretation [...] RDW-SD (test code = 45.5 fL 39.0-49.9 63904-2) RDW-CV (test code = 14.4 % 12.0-15.5 788-0) PLT (test code = See_Comment [Automated 777-3) message] The system which generated this result transmit britney reference range : 166 - 358 10*3/ ?L. The reference range was not u sed to interpret th is result as normal/abnormal . MPV (test code = 10.0 fL 9.5-12.9 49995-6) NRBC/100 WBC (test See_Comment [Automat ed code = 8733798848) message] The system which generated this result transmit britney reference range : 0.0 - 10.0 /100 WBCs. The reference range was not used to interpret this result as normal/abnormal . NRBC x10^3 (test code <0.01 See_Comment [Auto mated = 0721663795) message] The system which generated this result transmit britney reference range : 10*3/?L. The reference range was not used to interpret this result as normal/abnormal . GRAN MAT (NEUT) % 93.4 % (test code = 770-8) IMM GRAN % (test code 1.50 % = 9582094063) LYMPH % (test code = 2.4 % 736-9) MONO % (test code = 2.6 % 5905-5) EOS % (test code = 0.0 % 713-8) BASO % (test code = 0.1 % 706-2) GRAN MAT x10^3(ANC) 17.74 10*3/uL 1.88-7.09 H (test code = 5716057795) IMM GRAN x10^3 (test 0.28 10*3/uL 0.00-0.06 H code = 2599645716) LYMPH x10^3 (test code 0.46 10*3/uL 1.32-3.29 L = 731-0) MONO x10^3 (test code 0.50 10*3/uL 0.33-0.92 = 742-7) EOS x10^3 (test code = <0.03 0.03-0.39 L 711-2) BASO x10^3 (test code <0.03 0.01-0.07 = 704-7) TOXIC CHANGES (test Present A code = 803-7) Lab Interpretation Abnormal (test code = 26747-7) [facility] WITH [id number] 09:31:49 Test Item Value Reference Range Interpretation [...] RDW-SD (test code = 45.5 fL 39.0-49.9 90891-0) RDW-CV (test code = 14.4 % 12.0-15.5 788-0) PLT (test code = See_Comment [Automated 777-3) message] The system which generated this result transmit britney reference range : 166 - 358 10*3/ ?L. The reference range was not u sed to interpret th is result as normal/abnormal . MPV (test code = 10.0 fL 9.5-12.9 21221-1) NRBC/100 WBC (test See_Comment [Automat ed code = 0510867406) message] The system which generated this result transmit britney reference range : 0.0 - 10.0 /100 WBCs. The reference range was not used to interpret this result as normal/abnormal . NRBC x10^3 (test code <0.01 See_Comment [Auto mated = 7033956043) message] The system which generated this result transmit britney reference range : 10*3/?L. The reference range was not used to interpret this result as normal/abnormal . GRAN MAT (NEUT) % 93.4 % (test code = 770-8) IMM GRAN % (test code 1.50 % = 5849562033) LYMPH % (test code = 2.4 % 736-9) MONO % (test code = 2.6 % 5905-5) EOS % (test code = 0.0 % 713-8) BASO % (test code = 0.1 % 706-2) GRAN MAT x10^3(ANC) 17.74 10*3/uL 1.88-7.09 H (test code = 2616358688) IMM GRAN x10^3 (test 0.28 10*3/uL 0.00-0.06 H code = 5814562670) LYMPH x10^3 (test code 0.46 10*3/uL 1.32-3.29 L = 731-0) MONO x10^3 (test code 0.50 10*3/uL 0.33-0.92 = 742-7) EOS x10^3 (test code = <0.03 0.03-0.39 L 711-2) BASO x10^3 (test code <0.03 0.01-0.07 = 704-7) TOXIC CHANGES (test Present A code = 803-7) Lab Interpretation Abnormal (test code = 91005-2) [facility] METABOLIC PANEL (NA, K, CL, CO2, GLUCOSE, BUN, CREATININE, CA)2021-10-19 09:25:48 Test Item Value Reference Range Interpretation Comments NA (test code = 144 mmol/L 135-145 9386550782) K (test code = 4.5 mmol/L 3.5-5.0 7595383705) CL (test code = 111 mmol/L 98-108 H 9254073776) CO2 TOTAL (test code = 27 mmol/L 23-31 9164750264) AGAP (test code = 2-16 2627838792) BUN (test code = 30 mg/dL 7-23 H 7741309534) GLUCOSE (test code = 159 mg/dL 70-110 H 8965746974) CREATININE (test code = 0.81 mg/dL 0.50-1.04 6213732649) CALCIUM (test code = 8.2 mg/dL 8.6-10.6 L 0233727540) eGFR (test code = mL/min/1.73m2 0507971617) LUCILLE (test code = LUCILLE) Association of [...] tests). Lab Interpretation Abnormal (test code = 99344-9) [facility] METABOLIC PANEL (NA, K, CL, CO2, GLUCOSE, BUN, CREATININE, CA)2021-10-19 09:25:48 Test Item Value Reference Range Interpretation Comments NA (test code = 144 mmol/L 135-145 4655897222) K (test code = 4.5 mmol/L 3.5-5.0 3735544620) CL (test code = 111 mmol/L 98-108 H 1859211124) CO2 TOTAL (test code = 27 mmol/L 23-31 1940799811) AGAP (test code = 2-16 5850617742) BUN (test code = 30 mg/dL 7-23 H 2066668242) GLUCOSE (test code = 159 mg/dL 70-110 H 3202158941) CREATININE (test code = 0.81 mg/dL 0.50-1.04 0185643207) CALCIUM (test code = 8.2 mg/dL 8.6-10.6 L 0350971202) eGFR (test code = mL/min/1.73m2 7687019549) LUCILLE (test code = LUCILLE) Association of [...] tests). Lab Interpretation Abnormal (test code = 35410-3) [facility] GLUCOSE (AUTOMATED)2021-10-19 02:29:39 Test Item Value Reference Range Interpretation Comments POCT GLU (test code = 2401194000) 159 mg/dL 70-110 H Lab Interpretation (test code = Abnormal 52097-1) [facility] GLUCOSE (AUTOMATED)2021-10-19 02:29:39 Test Item Value Reference Range Interpretation Comments POCT GLU (test code = 7991267811) 159 mg/dL 70-110 H Lab Interpretation (test code = Abnormal 34023-9) [facility] [id number] 22:06:05 Test Item Value Reference Range Interpretation Comments SHIRA (test code = Positive Negative A 2490811675) LUCILLE (test code = LUCILLE) Negative - No Anti-Nuclear Antibodies detected by IFA.Positive - SHIRA IFA screen performed with a 1:80 dilution in adults and a 1:40 dilution in pediatrics. Any SHIRA "Positive" will have titer performed and reported separately. Lab Interpretation (test Abnormal code = 65207-7) [facility] [id number] 22:06:05 Test Item Value Reference Range Interpretation Comments SHIRA (test code = Positive Negative A 5858917701) LUCILLE (test code = LUCILLE) Negative - No Anti-Nuclear Antibodies detected by IFA.Positive - SHIRA IFA screen performed with a 1:80 dilution in adults and a 1:40 dilution in pediatrics. Any SHIRA "Positive" will have titer performed and reported separately. Lab Interpretation (test Abnormal code = 27296-4) [facility] CenterGLYCOSYLATED HEMOGLOBIN (A1C)2021-10-18 17:16:16 Test Item Value Reference Range Interpretation Comments HGB A1C (test code = 6.0 % 4.0-5.7 H 4548-4) LUCILLE (test code = LUCILLE) Reference RangesNormal: <5.7%Prediabetes: 5.7 - 6.4%Diabetes: > 6.5% Lab Interpretation (test Abnormal code = 65464-0) [facility] CenterGLYCOSYLATED HEM[facility]GLOBIN (A1C)2021-10-18 17:16:16 Test Item Value Reference Range Interpretation Comments HGB A1C (test code = 6.0 % 4.0-5.7 H 4548-4) LUCILLE (test code = LUCILLE) Reference RangesNormal: <5.7%Prediabetes: 5.7 - 6.4%Diabetes: > 6.5% Lab Interpretation (test Abnormal code = 36252-2) [facility] CenterCB WITH [id number] 10:21:29 Test Item Value Reference Range Interpretation [...] RDW-SD (test code = 44.0 fL 39.0-49.9 05145-4) RDW-CV (test code = 14.1 % 12.0-15.5 788-0) PLT (test code = See_Comment [Automated 777-3) message] The system which generated this result transmit britney reference range : 166 - 358 10*3/ ?L. The reference range was not u sed to interpret th is result as normal/abnormal . MPV (test code = 10.5 fL 9.5-12.9 10783-5) NRBC/100 WBC (test See_Comment [Automat ed code = 2801940420) message] The system which generated this result transmit britney reference range : 0.0 - 10.0 /100 WBCs. The reference range was not used to interpret this result as normal/abnormal . NRBC x10^3 (test code <0.01 See_Comment [Auto mated = 4064120417) message] The system which generated this result transmit britney reference range : 10*3/?L. The reference range was not used to interpret this result as normal/abnormal . GRAN MAT (NEUT) % 94.3 % (test code = 770-8) IMM GRAN % (test code 1.00 % = 7194023147) LYMPH % (test code = 2.1 % 736-9) MONO % (test code = 2.5 % 5905-5) EOS % (test code = 0.0 % 713-8) BASO % (test code = 0.1 % 706-2) GRAN MAT x10^3(ANC) 18.69 10*3/uL 1.88-7.09 H (test code = 3644784724) IMM GRAN x10^3 (test 0.20 10*3/uL 0.00-0.06 H code = 5906343620) LYMPH x10^3 (test code 0.42 10*3/uL 1.32-3.29 L = 731-0) MONO x10^3 (test code 0.50 10*3/uL 0.33-0.92 = 742-7) EOS x10^3 (test code = <0.03 0.03-0.39 L 711-2) BASO x10^3 (test code <0.03 0.01-0.07 = 704-7) TOXIC CHANGES (test Present A code = 803-7) Lab Interpretation Abnormal (test code = 52341-3) [facility] WITH [id number] 10:21:29 Test Item Value Reference Range Interpretation [...] RDW-SD (test code = 44.0 fL 39.0-49.9 71143-1) RDW-CV (test code = 14.1 % 12.0-15.5 788-0) PLT (test code = See_Comment [Automated 777-3) message] The system which generated this result transmit britney reference range : 166 - 358 10*3/ ?L. The reference range was not u sed to interpret th is result as normal/abnormal . MPV (test code = 10.5 fL 9.5-12.9 40516-9) NRBC/100 WBC (test See_Comment [Automat ed code = 6757271104) message] The system which generated this result transmit britney reference range : 0.0 - 10.0 /100 WBCs. The reference range was not used to interpret this result as normal/abnormal . NRBC x10^3 (test code <0.01 See_Comment [Auto mated = 1143321601) message] The system which generated this result transmit britney reference range : 10*3/?L. The reference range was not used to interpret this result as normal/abnormal . GRAN MAT (NEUT) % 94.3 % (test code = 770-8) IMM GRAN % (test code 1.00 % = 5431632415) LYMPH % (test code = 2.1 % 736-9) MONO % (test code = 2.5 % 5905-5) EOS % (test code = 0.0 % 713-8) BASO % (test code = 0.1 % 706-2) GRAN MAT x10^3(ANC) 18.69 10*3/uL 1.88-7.09 H (test code = 8232583403) IMM GRAN x10^3 (test 0.20 10*3/uL 0.00-0.06 H code = 5636265650) LYMPH x10^3 (test code 0.42 10*3/uL 1.32-3.29 L = 731-0) MONO x10^3 (test code 0.50 10*3/uL 0.33-0.92 = 742-7) EOS x10^3 (test code = <0.03 0.03-0.39 L 711-2) BASO x10^3 (test code <0.03 0.01-0.07 = 704-7) TOXIC CHANGES (test Present A code = 803-7) Lab Interpretation Abnormal (test code = 59349-3) [facility] METABOLIC PANEL (NA, K, CL, CO2, GLUCOSE, BUN, CREATININE, CA)2021-10-18 09:49:57 Test Item Value Reference Range Interpretation Comments NA (test code = 141 mmol/L 135-145 0630670698) K (test code = 4.9 mmol/L 3.5-5.0 7970525875) CL (test code = 107 mmol/L 98-108 0503050478) CO2 TOTAL (test code = 26 mmol/L 23-31 6850201842) AGAP (test code = 2-16 1466201565) BUN (test code = 30 mg/dL 7-23 H 8199973050) GLUCOSE (test code = 166 mg/dL 70-110 H 2070742492) CREATININE (test code = 0.76 mg/dL 0.50-1.04 3553846562) CALCIUM (test code = 8.2 mg/dL 8.6-10.6 L 4719340717) eGFR (test code = mL/min/1.73m2 3987159548) LUCILLE (test code = LUCILLE) Association of [...] tests). Lab Interpretation Abnormal (test code = 89794-3) [facility]20[facility] 09:49:57 Test Item Value Reference Range Interpretation Comments MAGNESIUM (test code = 0077357900) 3.0 mg/dL 1.7-2.4 H Lab Interpretation (test code = Abnormal 41626-1) [facility] CenterPHOSPHORUS2022-02-15 09:49:57 Test Item Value Reference Range Interpretation Comments PHOSPHORUS (test code = 8928485270) 4.0 mg/dL 2.5-5.0 Lab Interpretation (test code = Normal 41440-9) [facility]OL[facility] (NA, K, CL, CO2, GLUCOSE, BUN, CREATININE, CA)2021-10-18 09:49:57 Test Item Value Reference Range Interpretation Comments NA (test code = 141 mmol/L 135-145 1071817181) K (test code = 4.9 mmol/L 3.5-5.0 1473787558) CL (test code = 107 mmol/L 98-108 7874412768) CO2 TOTAL (test code = 26 mmol/L 23-31 8192362904) AGAP (test code = 2-16 4164536756) BUN (test code = 30 mg/dL 7-23 H 8051269224) GLUCOSE (test code = 166 mg/dL 70-110 H 6451042948) CREATININE (test code = 0.76 mg/dL 0.50-1.04 1403008957) CALCIUM (test code = 8.2 mg/dL 8.6-10.6 L 6250052717) eGFR (test code = mL/min/1.73m2 7763775824) LUCILLE (test code = LUCILLE) Association of [...] tests). Lab Interpretation Abnormal (test code = 60972-8) [facility]2022-[facility]-15 09:49:57 Test Item Value Reference Range Interpretation Comments MAGNESIUM (test code = 6607594919) 3.0 mg/dL 1.7-2.4 H Lab Interpretation (test code = Abnormal 22566-6) [facility]2022-[facility]-15 09:49:57 Test Item Value Reference Range Interpretation Comments PHOSPHORUS (test code = 8122461083) 4.0 mg/dL 2.5-5.0 Lab Interpretation (test code = Normal 67705-2) [facility] CenterHIV [facility]/2 AG-AB WITH [id number] 02:31:06 Test Item Value Reference Range Interpretation Comments HIV Negative Negative Semi-quantitative (test code = 94777-5) LUCILLE (test code = Non-reactive for HIV-1 LUCILLE) antigen and HIV-1/HIV-2 antibodies. ?No laboratory evidence of HIV infection. ?Repeat in 2-4 weeks if acute HIV infection is suspected. [facility] CenterHIV [facility]2 AG-AB WITH [id number] 02:31:06 Test Item Value Reference Range Interpretation Comments HIV Negative Negative Semi-quantitative (test code = 05669-0) LUCILLE (test code = Non-reactive for HIV-1 LUCILLE) antigen and HIV-1/HIV-2 antibodies. ?No laboratory evidence of HIV infection. ?Repeat in 2-4 weeks if acute HIV infection is suspected. [facility] (NA, K, CL, CO2, GLUCOSE, BUN, CREATININE, CA)2021-10-18 01:11:26 Test Item Value Reference Range Interpretation Comments NA (test code = 141 mmol/L 135-145 1548360321) K (test code = 4.6 mmol/L 3.5-5.0 1269848360) CL (test code = 106 mmol/L 98-108 8781141659) CO2 TOTAL (test code = 26 mmol/L 23-31 6476002868) AGAP (test code = 2-16 5669212204) BUN (test code = 28 mg/dL 7-23 H 2914176211) GLUCOSE (test code = 180 mg/dL 70-110 H 7612861721) CREATININE (test code = 0.82 mg/dL 0.50-1.04 1451951672) CALCIUM (test code = 8.3 mg/dL 8.6-10.6 L 5213667614) eGFR (test code = mL/min/1.73m2 9630838179) LUCILLE (test code = LUCILLE) Association of [...] tests). Lab Interpretation Abnormal (test code = 49991-7) [facility] METABOLIC PANEL (NA, K, CL, CO2, GLUCOSE, BUN, CREATININE, CA)2021-10-18 01:11:26 Test Item Value Reference Range Interpretation Comments NA (test code = 141 mmol/L 135-145 0828390614) K (test code = 4.6 mmol/L 3.5-5.0 0288433651) CL (test code = 106 mmol/L 98-108 1184085749) CO2 TOTAL (test code = 26 mmol/L 23-31 5811485491) AGAP (test code = 2-16 6433707009) BUN (test code = 28 mg/dL 7-23 H 9477613363) GLUCOSE (test code = 180 mg/dL 70-110 H 6630615844) CREATININE (test code = 0.82 mg/dL 0.50-1.04 4580804291) CALCIUM (test code = 8.3 mg/dL 8.6-10.6 L 9942512146) eGFR (test code = mL/min/1.73m2 2037657921) LUCILLE (test code = LUCILLE) Association of [...] tests). Lab Interpretation Abnormal (test code = 27986-3) [facility] CenterN-TERMINAL [id number] 22:06:03 Test Item Value Reference Range Interpretation Comments NT-proBNP (test code 250 pg/mL See_Comment H [Autom ated = 1076313777) message] The system which generated this result transmitted reference range : <=125. The reference range was not used to interpret this result as normal/abnormal . LUCILLE (test code = LUCILLE) Biotin has been reported to cause a negative bias, interpret results relative to patient's use of biotin. Lab Interpretation Abnormal (test code = 36856-5) [facility] CenterN-[facility]MINAL [id number] 22:06:03 Test Item Value Reference Range Interpretation Comments NT-proBNP (test code 250 pg/mL See_Comment H [Autom ated = 6538999383) message] The system which generated this result transmitted reference range : <=125. The reference range was not used to interpret this result as normal/abnormal . LUCILLE (test code = LUCILLE) Biotin has been reported to cause a negative bias, interpret results relative to patient's use of biotin. Lab Interpretation Abnormal (test code = 85426-5) [facility] CenterABG+COOX+NA+K+GLU+CA2+2021-10-17 21:42:22 Test Item Value Reference Range Interpretation Comments PH (test code = 2) 7.35-7.45 PCO2 (test code = See_Comment [Automat ed message] 1130187751) The system [employer] generated this result transmit britney reference range : 35 - 45 mmHg. The reference range was not used to interpret this result as normal/abnormal . PO2 (test code = See_Comment H [Automated message] 7349674321) The system [employer] generated this result transmit britney reference range : 80 - 100 mmHg. The reference range was not used to interpret this result as normal/abnormal . HCO3 (test code = See_Comment [Automate d message] [id number]) The system [employer] generated this result transmit [place] reference range : 22 - 26 mEq/L. The reference range was not used to interpret this result as normal/abnormal . BE (test code = See_Comment [Automated message] [id number]) The system [employer] generated this result transmit [place]rit[place] reference range : -3.0 - 3.0 mEq/ L. The reference r nicholas was not used to interpret this result as normal/abnormal . THB (test code = 13.0 g/dL 12.0-16.0 [id number]) %O2HB (test code = 98.9 % 94.0-99.0 9733309986) %COHB ART (test code = 0.3 % 0.0-1.5 9769291665) %METHB ART (test code = 0.0 % 0.4-1.5 L 8678843841) VOL%O2 ART (test code = 18.5 % 15.0-23.0 9728845300) NA (test code = 139 mmol/L 135-145 9234341964) K+ (test code = 4.6 mmol/L 3.5-5.0 7442951220) AC CA IONZ (test code = 4.50 mg/dL 4.50-5.30 9878867818) GLUCOSE (test code = 166 mg/dL 70-110 H 6339657910) Lab Interpretation Abnormal (test code = 16013-1) [facility]CA2[facility]21-10-17 21:42:22 Test Item Value Reference Range Interpretation Comments PH (test code = 2) 7.35-7.45 PCO2 (test code = See_Comment [Automat ed message] 0696913835) The system [employer]iva[employer] generated this result transmit britney reference range : 35 - 45 mmHg. The reference range was not used to interpret this result as normal/abnormal . PO2 (test code = See_Comment H [Automated message] 7995801323) The system [employer] generated this result transmit britney reference range : 80 - 100 mmHg. The reference range was not used to interpret this result as normal/abnormal . HCO3 (test code = See_Comment [Automate d message] 5955212394) The system [employer] generated this result transmit britney reference range : 22 - 26 mEq/L. The reference range was not used to interpret this result as normal/abnormal . BE (test code = See_Comment [Automated message] 8808842671) The system [employer] generated this result transmit britney reference range : -3.0 - 3.0 mEq/ L. The reference r nicholas was not used to interpret this result as normal/abnormal . THB (test code = 13.0 g/dL 12.0-16.0 4011985783) %O2HB (test code = 98.9 % 94.0-99.0 7574435848) %COHB ART (test code = 0.3 % 0.0-1.5 9462945897) %METHB ART (test code = 0.0 % 0.4-1.5 L 8977848525) VOL%O2 ART (test code = 18.5 % 15.0-23.0 4703607070) NA (test code = 139 mmol/L 135-145 7347778334) K+ (test code = 4.6 mmol/L 3.5-5.0 8046708805) AC CA IONZ (test code = 4.50 mg/dL 4.50-5.30 0444293158) GLUCOSE (test code = 166 mg/dL 70-110 H 1495078947) Lab Interpretation Abnormal (test code = 09788-1) [facility] WITH [id number] 11:01:03 Test Item Value Reference Range Interpretation Comments WBC (test code = See_Comment H [Automated 5526-2) message] The system which generated this result [...] RDW-SD (test code = 44.5 fL 39.0-49.9 35311-8) RDW-CV (test code = 14.1 % 12.0-15.5 788-0) PLT (test code = See_Comment [Automated 777-3) message] The system which generated this result transmit britney reference range : 166 - 358 10*3/ ?L. The reference range was not u sed to interpret th is result as normal/abnormal . MPV (test code = 11.0 fL 9.5-12.9 08136-3) NRBC/100 WBC (test See_Comment [Automat ed code = 8403312806) message] The system which generated this result transmit britney reference range : 0.0 - 10.0 /100 WBCs. The reference range was not used to interpret this result as normal/abnormal . NRBC x10^3 (test code <0.01 See_Comment [Auto mated = 0149497330) message] The system which generated this result transmit britney reference range : 10*3/?L. The reference range was not used to interpret this result as normal/abnormal . GRAN MAT (NEUT) % 91.6 % (test code = 770-8) IMM GRAN % (test code 1.40 % = 9241149503) LYMPH % (test code = 5.5 % 736-9) MONO % (test code = 1.4 % 5905-5) EOS % (test code = 0.0 % 713-8) BASO % (test code = 0.1 % 706-2) GRAN MAT x10^3(ANC) 17.75 10*3/uL 1.88-7.09 H (test code = 0122376044) IMM GRAN x10^3 (test 0.27 10*3/uL 0.00-0.06 H code = 1794428494) LYMPH x10^3 (test code 1.06 10*3/uL 1.32-3.29 L = 731-0) MONO x10^3 (test code 0.28 10*3/uL 0.33-0.92 L = 742-7) EOS x10^3 (test code = <0.03 0.03-0.39 L 711-2) BASO x10^3 (test code <0.03 0.01-0.07 = 704-7) TOXIC CHANGES (test Present A code = 803-7) Lab Interpretation Abnormal (test code = 22830-6) [facility] WITH [id number] 11:01:03 Test Item Value Reference Range Interpretation [...] RDW-SD (test code = 44.5 fL 39.0-49.9 21902-6) RDW-CV (test code = 14.1 % 12.0-15.5 788-0) PLT (test code = See_Comment [Automated 777-3) message] The system which generated this result transmit britney reference range : 166 - 358 10*3/ ?L. The reference range was not u sed to interpret th is result as normal/abnormal . MPV (test code = 11.0 fL 9.5-12.9 79100-5) NRBC/100 WBC (test See_Comment [Automat ed code = 7589112114) message] The system which generated this result transmit britney reference range : 0.0 - 10.0 /100 WBCs. The reference range was not used to interpret this result as normal/abnormal . NRBC x10^3 (test code <0.01 See_Comment [Auto mated = 0560933620) message] The system which generated this result transmit britney reference range : 10*3/?L. The reference range was not used to interpret this result as normal/abnormal . GRAN MAT (NEUT) % 91.6 % (test code = 770-8) IMM GRAN % (test code 1.40 % = 1269987362) LYMPH % (test code = 5.5 % 736-9) MONO % (test code = 1.4 % 5905-5) EOS % (test code = 0.0 % 713-8) BASO % (test code = 0.1 % 706-2) GRAN MAT x10^3(ANC) 17.75 10*3/uL 1.88-7.09 H (test code = 3990333233) IMM GRAN x10^3 (test 0.27 10*3/uL 0.00-0.06 H code = 8833321020) LYMPH x10^3 (test code 1.06 10*3/uL 1.32-3.29 L = 731-0) MONO x10^3 (test code 0.28 10*3/uL 0.33-0.92 L = 742-7) EOS x10^3 (test code = <0.03 0.03-0.39 L 711-2) BASO x10^3 (test code <0.03 0.01-0.07 = 704-7) TOXIC CHANGES (test Present A code = 803-7) Lab Interpretation Abnormal (test code = 62234-2) [facility] METABOLIC PANEL (NA, K, CL, CO2, GLUCOSE, BUN, CREATININE, CA)2021-10-17 10:54:32 Test Item Value Reference Range Interpretation Comments NA (test code = 135 mmol/L 135-145 9390148670) K (test code = 5.2 mmol/L 3.5-5.0 H Slight 1380525895) hemolysis CL (test code = 101 mmol/L 98-108 9244734107) CO2 TOTAL (test code 27 mmol/L 23-31 = 9643456401) AGAP (test code = 2-16 8404461425) BUN (test code = 21 mg/dL 7-23 Slight 3319595923) hemolysis GLUCOSE (test code = 153 mg/dL 70-110 H 4941293914) CREATININE (test code 0.71 mg/dL 0.50-1.04 = 0619084476) CALCIUM (test code = 8.3 mg/dL 8.6-10.6 L 0897904431) eGFR (test code = mL/min/1.73m2 8600321063) LUCILLE (test code = LUCILLE) Association of [...] tests). Lab Interpretation Abnormal (test code = 81917-7) [facility] 10:54:32 Test Item Value Reference Range Interpretation Comments MAGNESIUM (test code = 2780760890) 2.2 mg/dL 1.7-2.4 Lab Interpretation (test code = Normal 12600-7) [facility]2022-[facility]-14 10:54:32 Test Item Value Reference Range Interpretation Comments PHOSPHORUS (test code = 6020700215) 5.9 mg/dL 2.5-5.0 H Lab Interpretation (test code = Abnormal 46211-8) [facility] (NA, K, CL, CO2, GLUCOSE, BUN, CREATININE, CA)2021-10-17 10:54:32 Test Item Value Reference Range Interpretation Comments NA (test code = 135 mmol/L 135-145 1614332518) K (test code = 5.2 mmol/L 3.5-5.0 H Slight 5697042167) hemolysis CL (test code = 101 mmol/L 98-108 3917629302) CO2 TOTAL (test code 27 mmol/L 23-31 = 3916021377) AGAP (test code = 2-16 7997586145) BUN (test code = 21 mg/dL 7-23 Slight 1957350529) hemolysis GLUCOSE (test code = 153 mg/dL 70-110 H 1782680437) CREATININE (test code 0.71 mg/dL 0.50-1.04 = 9911950741) CALCIUM (test code = 8.3 mg/dL 8.6-10.6 L 4512408419) eGFR (test code = mL/min/1.73m2 7499199699) LUCILLE (test code = LUCILLE) Association of [...] tests). Lab Interpretation Abnormal (test code = 26899-8) [facility]2022-02-14 10:54:32 Test Item Value Reference Range Interpretation Comments MAGNESIUM (test code = 3966359804) 2.2 mg/dL 1.7-2.4 Lab Interpretation (test code = Normal 18136-8) [facility]2022-02-14 10:54:32 Test Item Value Reference Range Interpretation Comments PHOSPHORUS (test code = 4182471093) 5.9 mg/dL 2.5-5.0 H Lab Interpretation (test code = Abnormal 27256-6) [facility] [id number] 10:53:06 Test Item Value Reference Range Interpretation Comments ESR (test code = See_Comment H [Automated message] 3281425726) The system [employer] generated this result transmitted ref erence range: 0 - 20 m m/HR. The reference r nicholas was not used to interpret this result as normal/abnor mal. Lab Interpretation (test Abnormal code = 09664-4) [facility] [id number] 10:53:06 Test Item Value Reference Range Interpretation Comments ESR (test code = See_Comment H [Automated message] 1854254974) The system [employer] generated this result transmitted ref erence range: 0 - 20 m m/HR. The reference r nicholas was not used to interpret this result as normal/abnor mal. Lab Interpretation (test Abnormal code = 70709-5) [facility]2022-02-13 11:13:05 Test Item Value Reference Range Interpretation Comments MAGNESIUM (test code = 5588060215) 2.3 mg/dL 1.7-2.4 Lab Interpretation (test code = Normal 92268-4) [facility]2022-02-13 11:13:05 Test Item Value Reference Range Interpretation Comments PHOSPHORUS (test code = 0945449147) 3.4 mg/dL 2.5-5.0 Lab Interpretation (test code = Normal 09123-7) [facility]2022-02-13 11:13:05 Test Item Value Reference Range Interpretation Comments MAGNESIUM (test code = 8813898213) 2.3 mg/dL 1.7-2.4 Lab Interpretation (test code = Normal 28220-5) [facility]-13 11:13:05 Test Item Value Reference Range Interpretation Comments PHOSPHORUS (test code = 3690182975) 3.4 mg/dL 2.5-5.0 Lab Interpretation (test code = Normal 09382-7) [facility] (NA, K, CL, CO2, GLUCOSE, BUN, CREATININE, CA)2021-10-16 11:13:04 Test Item Value Reference Range Interpretation Comments NA (test code = 135 mmol/L 135-145 8828163703) K (test code = 4.6 mmol/L 3.5-5.0 8768632562) CL (test code = 102 mmol/L 98-108 8194578215) CO2 TOTAL (test code = 29 mmol/L 23-31 4208811881) AGAP (test code = 2-16 5369579188) BUN (test code = 24 mg/dL 7-23 H 0317587803) GLUCOSE (test code = 90 mg/dL 70-110 8037593012) CREATININE (test code = 0.87 mg/dL 0.50-1.04 1693965484) CALCIUM (test code = 8.0 mg/dL 8.6-10.6 L 3546735297) eGFR (test code = mL/min/1.73m2 3980348816) LUCILLE (test code = LUCILLE) Association of [...] tests). Lab Interpretation Abnormal (test code = 42394-4) [facility] METABOLIC PANEL (NA, K, CL, CO2, GLUCOSE, BUN, CREATININE, CA)2021-10-16 11:13:04 Test Item Value Reference Range Interpretation Comments NA (test code = 135 mmol/L 135-145 3484475340) K (test code = 4.6 mmol/L 3.5-5.0 6769936819) CL (test code = 102 mmol/L 98-108 7919391243) CO2 TOTAL (test code = 29 mmol/L 23-31 7773703374) AGAP (test code = 2-16 5166138760) BUN (test code = 24 mg/dL 7-23 H 4601622390) GLUCOSE (test code = 90 mg/dL 70-110 0417218139) CREATININE (test code = 0.87 mg/dL 0.50-1.04 2944915521) CALCIUM (test code = 8.0 mg/dL 8.6-10.6 L 7376652412) eGFR (test code = mL/min/1.73m2 3184735994) LUCILLE (test code = LUCILLE) Association of [...] tests). Lab Interpretation Abnormal (test code = 63029-4) [facility] + LACTIC [id number] 10:59:55 Test Item Value Reference Range Interpretation Comments PH (test code = 2) 7.35-7.45 PCO2 (test code = See_Comment [Automat ed 9824205999) message] The sy stem which generated this result transmitted reference range : 35 - 45 mmHg. The reference range was not used to interpret this result as normal/abnormal . PO2 (test code = See_Comment L [Automated 6575323795) message] The sy stem which generated this result transmitted reference range : 80 - 100 mmHg. The reference range was not used to interpret this result as normal/abnormal . HCO3 (test code = See_Comment H [Automate d 1964226206) message] The sy stem which generated this result transmitted reference range : 22 - 26 mEq/L. The reference range was not used to interpret this result as normal/abnormal . BE (test code = See_Comment [Automated 6952820955) message] The sy stem which generated this result transmitted reference range : -3.0 - 3.0 mEq/ L. The reference r nicholas was not used to interpret this result as normal/abnormal . THB (test code = 13.7 g/dL 12.0-16.0 4937402196) %O2HB (test code = 86.3 % 94.0-99.0 L 9478225966) %COHB ART (test code = 0.1 % 0.0-1.5 7401666639) %METHB ART (test code = 0.1 % 0.4-1.5 L 3670134590) VOL%O2 ART (test code = 16.6 % 15.0-23.0 9270290921) NA (test code = 135 mmol/L 135-145 8209216628) K+ (test code = 4.6 mmol/L 3.5-5.0 5749309901) AC CA IONZ (test code = 4.70 mg/dL 4.50-5.30 2613171601) GLUCOSE (test code = 88 mg/dL 70-110 3340272761) LACTIC ACID (test code 1.41 mmol/L 0.50-2.20 QUES = 3912781944) Lab Interpretation Abnormal (test code = 92749-8) [facility] + LACTIC [id number] 10:59:55 Test Item Value Reference Range Interpretation Comments PH (test code = 2) 7.35-7.45 PCO2 (test code = See_Comment [Automat ed 4582237249) message] The sy stem which generated this result transmitted reference range : 35 - 45 mmHg. The reference range was not used to interpret this result as normal/abnormal . PO2 (test code = See_Comment L [Automated 0034840563) message] The sy stem which generated this result transmitted reference range : 80 - 100 mmHg. The reference range was not used to interpret this result as normal/abnormal . HCO3 (test code = See_Comment H [Automate d 1645096654) message] The sy stem which generated this result transmitted reference range : 22 - 26 mEq/L. The reference range was not used to interpret this result as normal/abnormal . BE (test code = See_Comment [Automated 8584208526) message] The sy stem which generated this result transmitted reference range : -3.0 - 3.0 mEq/ L. The reference r nicholas was not used to interpret this result as normal/abnormal . THB (test code = 13.7 g/dL 12.0-16.0 4901689408) %O2HB (test code = 86.3 % 94.0-99.0 L 7948735486) %COHB ART (test code = 0.1 % 0.0-1.5 6346816517) %METHB ART (test code = 0.1 % 0.4-1.5 L 9979908261) VOL%O2 ART (test code = 16.6 % 15.0-23.0 5518700526) NA (test code = 135 mmol/L 135-145 1699634963) K+ (test code = 4.6 mmol/L 3.5-5.0 0510414367) AC CA IONZ (test code = 4.70 mg/dL 4.50-5.30 9328880770) GLUCOSE (test code = 88 mg/dL 70-110 4240493572) LACTIC ACID (test code 1.41 mmol/L 0.50-2.20 QUES = 8289132590) Lab Interpretation Abnormal (test code = 65963-8) [facility] WITH [id number] 10:54:01 Test Item Value Reference Range Interpretation Comments WBC (test code = See_Comment H [Automated 2590-2) message] The system which generated this result [...] RDW-SD (test code = 47.0 fL 39.0-49.9 18449-2) RDW-CV (test code = 14.6 % 12.0-15.5 788-0) PLT (test code = See_Comment [Automated 777-3) message] The system which generated this result transmit britney reference range : 166 - 358 10*3/ ?L. The reference range was not u sed to interpret th is result as normal/abnormal . MPV (test code = 10.5 fL 9.5-12.9 22827-2) NRBC/100 WBC (test See_Comment [Automat ed code = 7616139138) message] The system which generated this result transmit britney reference range : 0.0 - 10.0 /100 WBCs. The reference range was not used to interpret this result as normal/abnormal . NRBC x10^3 (test code See_Comment [Auto mated = 1036196291) message] The system which generated this result transmit britney reference range : 10*3/?L. The reference range was not used to interpret this result as normal/abnormal . GRAN MAT (NEUT) % 85.6 % (test code = 770-8) IMM GRAN % (test code 1.10 % = 2638132522) LYMPH % (test code = 9.7 % 736-9) MONO % (test code = 3.0 % 5905-5) EOS % (test code = 0.5 % 713-8) BASO % (test code = 0.1 % 706-2) GRAN MAT x10^3(ANC) 12.97 10*3/uL 1.88-7.09 H (test code = 2280765460) IMM GRAN x10^3 (test 0.16 10*3/uL 0.00-0.06 H code = 9493307071) LYMPH x10^3 (test code 1.47 10*3/uL 1.32-3.29 = 731-0) MONO x10^3 (test code 0.45 10*3/uL 0.33-0.92 = 742-7) EOS x10^3 (test code = 0.08 10*3/uL 0.03-0.39 711-2) BASO x10^3 (test code <0.03 0.01-0.07 = 704-7) Lab Interpretation Abnormal (test code = 64630-2) [facility] WITH [id number] 10:54:01 Test Item Value Reference Range Interpretation [...] RDW-SD (test code = 47.0 fL 39.0-49.9 01420-8) RDW-CV (test code = 14.6 % 12.0-15.5 788-0) PLT (test code = See_Comment [Automated 777-3) message] The system which generated this result transmit britney reference range : 166 - 358 10*3/ ?L. The reference range was not u sed to interpret th is result as normal/abnormal . MPV (test code = 10.5 fL 9.5-12.9 33781-0) NRBC/100 WBC (test See_Comment [Automat ed code = 6269736128) message] The system which generated this result transmit britney reference range : 0.0 - 10.0 /100 WBCs. The reference range was not used to interpret this result as normal/abnormal . NRBC x10^3 (test code See_Comment [Auto mated = 6609329304) message] The system which generated this result transmit britney reference range : 10*3/?L. The reference range was not used to interpret this result as normal/abnormal . GRAN MAT (NEUT) % 85.6 % (test code = 770-8) IMM GRAN % (test code 1.10 % = 6566947429) LYMPH % (test code = 9.7 % 736-9) MONO % (test code = 3.0 % 5905-5) EOS % (test code = 0.5 % 713-8) BASO % (test code = 0.1 % 706-2) GRAN MAT x10^3(ANC) 12.97 10*3/uL 1.88-7.09 H (test code = 1258193098) IMM GRAN x10^3 (test 0.16 10*3/uL 0.00-0.06 H code = 4546665335) LYMPH x10^3 (test code 1.47 10*3/uL 1.32-3.29 = 731-0) MONO x10^3 (test code 0.45 10*3/uL 0.33-0.92 = 742-7) EOS x10^3 (test code = 0.08 10*3/uL 0.03-0.39 711-2) BASO x10^3 (test code <0.03 0.01-0.07 = 704-7) Lab Interpretation Abnormal (test code = 93519-2) [facility]-REACTIVE [id number] 23:24:07 Test Item Value Reference Range Interpretation Comments CRP (test code = 5564050360) 22.1 mg/dL <1.0 H Lab Interpretation (test code = Abnormal 05236-4) [facility]-REACTIVE [id number] 23:24:07 Test Item Value Reference Range Interpretation Comments CRP (test code = 6053772777) 22.1 mg/dL <1.0 H Lab Interpretation (test code = Abnormal 31611-0) [facility] CenterTrop[facility] [id number] 23:21:42 Test Item Value Reference Interpretation Comments Range TROPONIN I (test 0.003 ng/mL See_Comment [Automated code = 2347460651) message] The system which generated this result [...] biotin. Lab Interpretation Normal (test code = 32438-8) [facility] CenterTrsavannahn [id number] 23:21:42 Test Item Value Reference Interpretation Comments Range TROPONIN I (test 0.003 ng/mL See_Comment [Automated code = 9855668646) message] The system which generated this result [...] biotin. Lab Interpretation Normal (test code = 35897-9) [facility] (NA, K, CL, CO2, GLUCOSE, BUN, CREATININE, CA)2021-10-15 23:12:40 Test Item Value Reference Range Interpretation Comments NA (test code = 136 mmol/L 135-145 2702903240) K (test code = 4.8 mmol/L 3.5-5.0 0069613108) CL (test code = 104 mmol/L 98-108 4971499283) CO2 TOTAL (test code = 26 mmol/L 23-31 1746255893) AGAP (test code = 2-16 4232945126) BUN (test code = 22 mg/dL 7-23 5895227842) GLUCOSE (test code = 114 mg/dL 70-110 H 1046990251) CREATININE (test code = 0.77 mg/dL 0.50-1.04 2369657633) CALCIUM (test code = 8.2 mg/dL 8.6-10.6 L 2516597861) eGFR (test code = mL/min/1.73m2 3926073904) LUCILLE (test code = LUCILLE) Association of [...] tests). Lab Interpretation Abnormal (test code = 21303-0) [facility] (NA, K, CL, CO2, GLUCOSE, BUN, CREATININE, CA)2021-10-15 23:12:40 Test Item Value Reference Range Interpretation Comments NA (test code = 136 mmol/L 135-145 8343860859) K (test code = 4.8 mmol/L 3.5-5.0 7797632550) CL (test code = 104 mmol/L 98-108 3550626717) CO2 TOTAL (test code = 26 mmol/L 23-31 4138287339) AGAP (test code = 2-16 0962996549) BUN (test code = 22 mg/dL 7- 7957459946) GLUCOSE (test code = 114 mg/dL 70-110 H 4322988362) CREATININE (test code = 0.77 mg/dL 0.50-1.04 6158719644) CALCIUM (test code = 8.2 mg/dL 8.6-10.6 L 5358926083) eGFR (test code = mL/min/1.73m2 5261151654) LUCLILE (test code = LUCILLE) Association of Glomerular [...] tests). Lab Interpretation Abnormal (test code = 74743-8) [facility] CenterWendy [id number] 21:55:57 Test Item Value Reference Interpretation Comments Range TROPONIN I (test 0.003 ng/mL See_Comment [Automated code = 4602018983) message] The system which generated this result [...] biotin. Lab Interpretation Normal (test code = 35769-5) [facility] CenterTrop[facility] [id number] 21:55:57 Test Item Value Reference Interpretation Comments Range TROPONIN I (test 0.003 ng/mL See_Comment [Automated code = 8069076190) message] The system which generated this result [...] biotin. Lab Interpretation Normal (test code = 77325-7) [facility] CenterPROCALCITONIN2022-02-12 19:07:46 Test Item Value Reference Range Interpretation Comments Procalcitonin (test 0.15 ng/mL <0.08 H code = 8938316809) LUCILLE (test code = LUCILLE) INTERPRETATION OF [...] lung abscess/empyema. For further information please refer to:[email or web address] Lab Interpretation Abnormal (test code = 05592-6) [facility] CenterPROCALCITONIN2022-02-12 19:07:46 Test Item Value Reference Range Interpretation Comments Procalcitonin (test 0.15 ng/mL <0.08 H code = 2011076069) LUCILLE (test code = LUCILLE) INTERPRETATION OF [...] lung abscess/empyema. For further information please refer to:[email or web address] Lab Interpretation Abnormal (test code = 58153-2) [facility] CenterN-TERMINAL [id number] 18:31:24 Test Item Value Reference Range Interpretation Comments NT-proBNP (test code 43 pg/mL See_Comment [Autom ated = 6179961049) message] The system which generated this result transmitted reference range : <=125. The reference range was not used to interpret this result as normal/abnormal . LUCILLE (test code = LUCILLE) Biotin has been reported to cause a negative bias, interpret results relative to patient's use of biotin. Lab Interpretation Normal (test code = 66637-3) [facility] CenterN-TERMINAL [id number] 18:31:24 Test Item Value Reference Range Interpretation Comments NT-proBNP (test code 43 pg/mL See_Comment [Autom ated = 6151182783) message] The system which generated this result transmitted reference range : <=125. The reference range was not used to interpret this result as normal/abnormal . LUCILLE (test code = LUCILLE) Biotin has been reported to cause a negative bias, interpret results relative to patient's use of biotin. Lab Interpretation Normal (test code = 03227-1) [facility] CenterProcalcitonin2022-02-12 09:17:58 Test Item Value Reference Range Interpretation Comments Procalcitonin (test 0.15 ng/mL <0.08 H code = 4675397657) LUCILLE (test code = LUCILLE) INTERPRETATION OF [...] lung abscess/empyema. For further information please refer to:[email or web address] Lab Interpretation Abnormal (test code = 25363-5) [facility] CenterProcalcitonin2022-02-12 09:17:58 Test Item Value Reference Range Interpretation Comments Procalcitonin (test 0.15 ng/mL <0.08 H code = 4096853728) LUCILLE (test code = LUCILLE) INTERPRETATION OF [...] lung abscess/empyema. For further information please refer to:[email or web address] Lab Interpretation Abnormal (test code = 86217-9) [facility] METABOLIC PANEL (NA, K, CL, CO2, GLUCOSE, BUN, CREATININE, CA)2021-10-15 08:36:11 Test Item Value Reference Range Interpretation Comments NA (test code = 139 mmol/L 135-145 3615851757) K (test code = 5.5 mmol/L 3.5-5.0 H Slight 7089578308) hemolysis CL (test code = 104 mmol/L 98-108 7862973582) CO2 TOTAL (test code 29 mmol/L 23-31 = 4419866281) AGAP (test code = 2-16 7744004850) BUN (test code = 17 mg/dL 7-23 Slight 9293188342) hemolysis GLUCOSE (test code = 131 mg/dL 70-110 H 7029605856) CREATININE (test code 0.77 mg/dL 0.50-1.04 = 5500291549) CALCIUM (test code = 8.5 mg/dL 8.6-10.6 L 8430465113) eGFR (test code = mL/min/1.73m2 4664915583) LUCILLE (test code = LUCILLE) Association of [...] tests). Lab Interpretation Abnormal (test code = 44447-6) [facility] [id number] 08:36:11 Test Item Value Reference Range Interpretation Comments MAGNESIUM (test code = 2706724925) 2.4 mg/dL 1.7-2.4 Lab Interpretation (test code = Normal 27922-2) [facility] (NA, K, CL, CO2, GLUCOSE, BUN, CREATININE, CA)2021-10-15 08:36:11 Test Item Value Reference Range Interpretation Comments NA (test code = 139 mmol/L 135-145 2517649821) K (test code = 5.5 mmol/L 3.5-5.0 H Slight 0009695876) hemolysis CL (test code = 104 mmol/L 98-108 0812974118) CO2 TOTAL (test code 29 mmol/L 23-31 = 0835175418) AGAP (test code = 2-16 6301468790) BUN (test code = 17 mg/dL 7-23 Slight 3107317842) hemolysis GLUCOSE (test code = 131 mg/dL 70-110 H 5118061424) CREATININE (test code 0.77 mg/dL 0.50-1.04 = 2850240172) CALCIUM (test code = 8.5 mg/dL 8.6-10.6 L 5329727696) eGFR (test code = mL/min/1.73m2 5224204174) LUCILLE (test code = LUCILLE) Association of [...] tests). Lab Interpretation Abnormal (test code = 96368-7) [facility] [id number] 08:36:11 Test Item Value Reference Range Interpretation Comments MAGNESIUM (test code = 4629433804) 2.4 mg/dL 1.7-2.4 Lab Interpretation (test code = Normal 29982-9) [facility] [id number] 08:21:08 Test Item Value Reference Interpretation Comments Range TROPONIN I (test 0.005 ng/mL See_Comment [Automated code = 3894353605) message] The system which generated this result [...] biotin. Lab Interpretation Normal (test code = 96811-9) [facility] [id number] 08:21:08 Test Item Value Reference Interpretation Comments Range TROPONIN I (test 0.005 ng/mL See_Comment [Automated code = 0832270982) message] The system which generated this result [...] biotin. Lab Interpretation Normal (test code = 75591-7) [facility] WITH [id number] 07:37:26 Test Item Value Reference Range Interpretation Comments WBC (test code = See_Comment H [Automated 9861-2) message] The system which generated this result [...] RDW-SD (test code = 47.4 fL 39.0-49.9 51003-6) RDW-CV (test code = 14.6 % 12.0-15.5 788-0) PLT (test code = See_Comment [Automated 777-3) message] The system which generated this result transmit britney reference range : 166 - 358 10*3/ ?L. The reference range was not u sed to interpret th is result as normal/abnormal . MPV (test code = 11.1 fL 9.5-12.9 94775-9) NRBC/100 WBC (test See_Comment [Automat ed code = 0174596039) message] The system which generated this result transmit britney reference range : 0.0 - 10.0 /100 WBCs. The reference range was not used to interpret this result as normal/abnormal . NRBC x10^3 (test code <0.01 See_Comment [Auto mated = 8164620077) message] The system which generated this result transmit britney reference range : 10*3/?L. The reference range was not used to interpret this result as normal/abnormal . GRAN MAT (NEUT) % 92.0 % (test code = 770-8) IMM GRAN % (test code 1.10 % = 1737397977) LYMPH % (test code = 5.0 % 736-9) MONO % (test code = 1.8 % 5905-5) EOS % (test code = 0.0 % 713-8) BASO % (test code = 0.1 % 706-2) GRAN MAT x10^3(ANC) 20.65 10*3/uL 1.88-7.09 H (test code = 3551134290) IMM GRAN x10^3 (test 0.25 10*3/uL 0.00-0.06 H code = 9597072054) LYMPH x10^3 (test code 1.13 10*3/uL 1.32-3.29 L = 731-0) MONO x10^3 (test code 0.40 10*3/uL 0.33-0.92 = 742-7) EOS x10^3 (test code = <0.03 0.03-0.39 L 711-2) BASO x10^3 (test code 0.03 10*3/uL 0.01-0.07 = 704-7) Lab Interpretation Abnormal (test code = 88850-0) [facility] WITH [id number] 07:37:26 Test Item Value Reference Range Interpretation Comments WBC (test code = See_Comment H [Automated 3990-2) message] The system which generated this result [...] RDW-SD (test code = 47.4 fL 39.0-49.9 77103-4) RDW-CV (test code = 14.6 % 12.0-15.5 788-0) PLT (test code = See_Comment [Automated 777-3) message] The system which generated this result transmit britney reference range : 166 - 358 10*3/ ?L. The reference range was not u sed to interpret th is result as normal/abnormal . MPV (test code = 11.1 fL 9.5-12.9 15512-2) NRBC/100 WBC (test See_Comment [Automat ed code = 0289340609) message] The system which generated this result transmit britney reference range : 0.0 - 10.0 /100 WBCs. The reference range was not used to interpret this result as normal/abnormal . NRBC x10^3 (test code <0.01 See_Comment [Auto mated = 2361599734) message] The system which generated this result transmit britney reference range : 10*3/?L. The reference range was not used to interpret this result as normal/abnormal . GRAN MAT (NEUT) % 92.0 % (test code = 770-8) IMM GRAN % (test code 1.10 % = 6379134383) LYMPH % (test code = 5.0 % 736-9) MONO % (test code = 1.8 % 5905-5) EOS % (test code = 0.0 % 713-8) BASO % (test code = 0.1 % 706-2) GRAN MAT x10^3(ANC) 20.65 10*3/uL 1.88-7.09 H (test code = 8433166308) IMM GRAN x10^3 (test 0.25 10*3/uL 0.00-0.06 H code = 9997399031) LYMPH x10^3 (test code 1.13 10*3/uL 1.32-3.29 L = 731-0) MONO x10^3 (test code 0.40 10*3/uL 0.33-0.92 = 742-7) EOS x10^3 (test code = <0.03 0.03-0.39 L 711-2) BASO x10^3 (test code 0.03 10*3/uL 0.01-0.07 = 704-7) Lab Interpretation Abnormal (test code = 89709-1) [facility]K+GLU+CA2+2021-10-15 07:28:14 Test Item Value Reference Range Interpretation Comments PH (test code = 2) 7.35-7.45 PCO2 (test code = See_Comment [Automat ed message] 3132343695) The system [employer] generated this result transmit britney reference range : 35 - 45 mmHg. The reference range was not used to interpret this result as normal/abnormal . PO2 (test code = See_Comment H [Automated message] 9484128034) The system [employer] generated this result transmit britney reference range : 80 - 100 mmHg. The reference range was not used to interpret this result as normal/abnormal . HCO3 (test code = See_Comment [Automate d message] 1225294503) The system [employer] generated this result transmit britney reference range : 22 - 26 mEq/L. The reference range was not used to interpret this result as normal/abnormal . BE (test code = See_Comment [Automated message] 0627394873) The system [employer] generated this result transmit britney reference range : -3.0 - 3.0 mEq/ L. The reference r nicholas was not used to interpret this result as normal/abnormal . THB (test code = 13.1 g/dL 12.0-16.0 8998628433) %O2HB (test code = 98.7 % 94.0-99.0 3802215527) %COHB ART (test code = 0.4 % 0.0-1.5 4037880874) %METHB ART (test code = 0.0 % 0.4-1.5 L 4872292736) VOL%O2 ART (test code = 18.5 % 15.0-23.0 QUES 3093356731) NA (test code = 138 mmol/L 135-145 1468260646) K+ (test code = 5.0 mmol/L 3.5-5.0 0655546161) AC CA IONZ (test code = 4.50 mg/dL 4.50-5.30 2081132339) GLUCOSE (test code = 138 mg/dL 70-110 H 1397723551) Lab Interpretation Abnormal (test code = 81297-5) [facility]NA+K+GLU+CA2+2021-10-15 07:28:14 Test Item Value Reference Range Interpretation Comments PH (test code = 2) 7.35-7.45 PCO2 (test code = See_Comment [Automat ed message] 7398746371) The system [employer] generated this result transmit britney reference range : 35 - 45 mmHg. The reference range was not used to interpret this result as normal/abnormal . PO2 (test code = See_Comment H [Automated message] 9340746660) The system [employer] generated this result transmit britney reference range : 80 - 100 mmHg. The reference range was not used to interpret this result as normal/abnormal . HCO3 (test code = See_Comment [Automate d message] 9022670193) The system [employer] generated this result transmit britney reference range : 22 - 26 mEq/L. The reference range was not used to interpret this result as normal/abnormal . BE (test code = See_Comment [Automated message] 9903388707) The system [employer] generated this result transmit britney reference range : -3.0 - 3.0 mEq/ L. The reference r nicholas was not used to interpret this result as normal/abnormal . THB (test code = 13.1 g/dL 12.0-16.0 3572614679) %O2HB (test code = 98.7 % 94.0-99.0 7184572456) %COHB ART (test code = 0.4 % 0.0-1.5 1712149697) %METHB ART (test code = 0.0 % 0.4-1.5 L 0621504010) VOL%O2 ART (test code = 18.5 % 15.0-23.0 QUES 3632777336) NA (test code = 138 mmol/L 135-145 0903659252) K+ (test code = 5.0 mmol/L 3.5-5.0 9356017028) AC CA IONZ (test code = 4.50 mg/dL 4.50-5.30 2263364744) GLUCOSE (test code = 138 mg/dL 70-110 H 4640917841) Lab Interpretation Abnormal (test code = 18941-6) [facility]
[2021-12-30 21:01] LABS: Absolute Lymphocytes (CBC) 2.2 K/uL (0.7-4.9); Lymphocytes % 26.6 % (15.3-44.8); MPV 8.4 fL (7.6-11.3); RBC Red Blood Cell Count 4.09 M/uL (3.86-4.86)
--- NOTE | 2021-12-30 21:05 | RAD REPORT ---
[facility]44 [facility] CLINICAL HISTORY: cough COMPARISON: 12/20/2021 FINDINGS Right hemidiaphragm remains elevated with mild basilar atelectasis. The remainder of lungs appear clear. Heart is normal size
[2021-12-30 21:08] LABS: Protime INR 0.96
[2021-12-30 21:20] LABS: ALT/SGPT 53 U/L (12-78); AST/SGOT 20 U/L (15-37); Albumin 3.3 g/dL (3.4-5.0); Alkaline Phosphatase 108 U/L (45-117); BUN Blood Urea Nitrogen 13 mg/dL (7-18); Bicarbonate 25 mmol/L (21-32); Glucose Level 113 mg/dL (74-106); Magnesium 2.2 mg/dL (1.8-2.4); NT PRO-BNP 127 pg/mL (<125); Potassium 3.6 mmol/L (3.5-5.1); Protein, Total 6.7 g/dL (6.4-8.2); Sodium Level 147 mmol/L (136-145); Troponin High Sensitivity 14.6 pg/mL (<58.9)
[2021-12-30 21:50] LABS: Bilirubin Direct < 0.1 mg/dL (0-0.2); Bilirubin Total < 0.1 mg/dL (0.2-1.0)
[2021-12-30] MEDS ORDERED: METHYLPREDNISOLONE 125 MG INJ ONE (21:54)
[2021-12-30 22:31] LABS: SARS-COV-2 RT PCR POSITIVE (NEGATIVE)
--- NOTE | 2021-12-30 23:54 | ER ---
Nurse's Notes [facility] Name: Nancie Ordonez Age: 51 yrs Sex: Female : 1970 Arrival Date: 12/30/2021 Time: 20:07 Bed 20 Private MD: Diagnosis: Presentation: 12/30 20:09 Chief complaint: Patient states: "I have been SOB for a couple months but today it has ab2 gotten worse.". Coronavirus screen: Vaccine status: Patient reports receiving the 2nd dose of the covid vaccine. Client denies travel out of the [place] in the last 14 days. Ebola Screen: Patient negative for fever greater than or equal to 101.5 degrees Fahrenheit, and additional compatible Ebola Virus Disease symptoms Patient denies exposure to infectious person. Patient denies travel to an Ebola-affected area in the 21 days before illness onset. No symptoms or risks identified at this time. Initial Sepsis Screen: Does the patient meet any 2 criteria? RR > 20 per min. HR > 90 bpm. Yes Does the patient have a suspected source of infection? Yes: Productive cough/pneumonia. Risk Assessment: Do you want to hurt yourself or someone else? Patient reports no desire to harm self or others. Onset of symptoms is unknown. 20:09 Method Of Arrival: Ambulatory ab2 20:09 Acuity: DEEPALI 3 ab2 Triage Assessment: 20:11 General: Appears in no apparent distress. uncomfortable, Behavior is calm, cooperative, ab2 appropriate for age. Pain: Denies pain. Neuro: Level of Consciousness is awake, alert, obeys commands, Oriented to person, place, time, situation, Appropriate for age Notched Blade Loader are equal bilaterally Moves all extremities. Cardiovascular: Reports shortness of breath. Respiratory: Reports shortness of breath labored breathing Airway is patent Respiratory effort is labored, Respiratory pattern is symmetrical, Onset: The symptoms/episode began/occurred at an unknown time. the patient has moderate shortness of breath. GI: No deficits noted. No signs and/or symptoms were reported involving the gastrointestinal system. : No deficits noted. No signs and/or symptoms were reported regarding the genitourinary system. Derm: Skin is intact, is healthy with good turgor, Skin is pink, warm \\T\\ dry. Historical: - Allergies: 20:11 Ibuprofen; ab2 20:11 Naproxen; ab2 - PMHx: 20:11 Arthritis; GERD; Gout; Hypertension; ab2 - PSHx: 20:11 hernia repair; Neck sx; Right arm injury; ab2 - Immunization history:: Adult Immunizations up to date. - Social history:: Smoking status: Patient denies any tobacco usage or history of. Screenin:50 Abuse screen: Denies threats or abuse. Denies injuries from another. Nutritional jude screening: No deficits noted. Tuberculosis screening: No symptoms or risk factors identified. Fall Risk None identified. Assessment: 20:22 Reassessment: Pt was recv'd to room #20 with a "Code Sepsis" paged overhead. The pt was jude placed on the O2 monitor and found to be 100% on RA. She was tachypneic and asked to slow her breathing. 20:58 Reassessment: The pt responded well to the neb tx and the SINGLE STROKE PREFORMER is at bedside attempting jude to gain IV access, using the doppler. The pt has scarring to bilateral ACs, as well as tiny veins. 21:53 Reassessment: The pt refused the steroid and became agitated when I told her that he jude had ordered this for her "pain when (she) breathing". The pt appears to be in NAD. 23:14 Reassessment: The pt was sleeping with clear, even breaths, as well as, her at jude bedside. I told her of the order for IV fluids and asked if she would like the steroid and the IVF that the MD had ordered. She said,"No, I'll just sign myself out." She remains on the monitor and her VS are WNL. As I am documenting this, I can hear her lightly snoring, as she sleeps, in the room. 23:31 Reassessment: The pt has asked for the AMA paperwork and is now snoring, again. MD is jude aware. 23:51 Reassessment: The pt initialled the AMA paperwork and wrote on it. She was adamant that jude she leave. Thankfully, she was agitated, but not abusive. Her thanked me, as they left. Vital Signs: 20:09 BP 142 / 102; Pulse 110; Resp 28; Temp 98.7; Pulse Ox 96% on R/A; Weight 81.65 kg; ab2 Height 5 ft. 4 in. (162.56 cm); Pain 0/10; 21:44 BP 157 / 87; Pulse 92; Resp 24; Pulse Ox 100% on R/A; Pain 0/10; jude 21:55 Pulse 97; Resp 20; Pulse Ox 100% on R/A; Pain 5/10; jude 23:13 BP 132 / 78; Pulse 92; Resp 16; Pulse Ox 100% on R/A; Pain 5/10; jude 23:26 BP 133 / 79; Pulse 88; Resp 18; Pulse Ox 100% on R/A; jude 20:09 Body Mass Index 30.90 (81.65 kg, 162.56 cm) ab2 ED Course: 20:07 Patient arrived in ED. kz 20:11 Triage completed. ab2 20:12 Arm band placed on right wrist. ab2 20:16 Yuniel Mccray MD is Attending Physician. [facility] 20:22 Emily Mckeon, NICCI is Primary Nurse. jude 20:46 XRAY Chest (1 view) In Process Unspecified. EDMS 21:43 Blood Culture Adult (2) Sent. jude 21:43 Procalcitonin Sent. jude 21:43 Lactate Sent. jude 21:43 COVID-19/FLU A+B (Document "Date of Onset" if Symptomatic) Sent. jude 21:44 Basic Metabolic Panel Sent. jude 21:44 LFT's Sent. jude 21:44 Magnesium Sent. jude 21:44 NT PRO-BNP Sent. jude 21:44 Troponin HS Sent. jude 21:48 Blood Culture Adult (2) Sent. jude 21:48 Procalcitonin Sent. jude 21:48 Lactate Sent. jude 21:48 COVID-19/FLU A+B (Document "Date of Onset" if Symptomatic) Sent. jude 22:08 Notified ED physician of a critical lab result(s). lactate of 3.1 Dr Mccray notified. bb Administered Medications: 20:44 Drug: Xopenex (levalbuterol) 1.25 mg Route: Inhalation; jude 20:44 Drug: AtroVENT (ipratropium) Aerosol 0.5 mg Route: Inhalation; jude 23:16 Not Given (Patient Refused): SOLU-Medrol (methylPrednisoLONE) 125 mg IVP once jude 23:17 Not Given (Patient Refused): NS 0.9% 1000 ml IV at 1000 ml once jude Outcome: 23:53 Patient left the ED. jude Signatures: Dispatcher [employer] Emily Edmondson, NICCI RN Yuniel Mc MD MD 7 Emily Mckeon RN RN bo Bleininger, Alexis ab2 Zapata, Kelly kz
--- NOTE | 2021-12-30 23:54 | EDPHYS ---
Physician Documentation [facility] Name: Nancie Ordonez Age: 51 yrs Sex: Female : 1970 Arrival Date: 12/30/2021 Time: 20:07 Bed 20 Private MD: ED Physician Yuniel Mccray HPI: 12/30 20:36 This 51 yrs old Black Female presents to ER via Ambulatory with complaints of Breathing mh7 Difficulty, Cough. 20:36 The patient has shortness of breath at rest. Onset: The symptoms/episode began/occurred mh7 2 month(s) ago, and became worse 2 day(s) ago. Duration: The symptoms are intermittent, with no pattern. The patient's shortness of breath is aggravated by coughing, is alleviated by nothing. Associated signs and symptoms: Pertinent positives: non-productive cough, wheezing, Pertinent negatives: chest pain, productive cough, diaphoresis, dizziness, fever, hemoptysis, loss of consciousness, nausea, numbness in extremities, visual changes, vomiting. Severity of symptoms: At their worst the symptoms were moderate yesterday, in the emergency department the symptoms are unchanged. The patient has experienced similar episodes in the past, several times. Historical: - Allergies: 20:11 Ibuprofen; ab2 20:11 Naproxen; ab2 - PMHx: 20:11 Arthritis; GERD; Gout; Hypertension; ab2 - PSHx: 20:11 hernia repair; Neck sx; Right arm injury; ab2 - Immunization history:: Adult Immunizations up to date. - Social history:: Smoking status: Patient denies any tobacco usage or history of. ROS: 20:36 Constitutional: Negative for fever, chills, and weight loss, Eyes: Negative for injury, mh7 pain, redness, and discharge, ENT: Negative for injury, pain, and discharge, Neck: Negative for injury, pain, and swelling, Cardiovascular: Negative for chest pain, palpitations, and edema, Abdomen/GI: Negative for abdominal pain, nausea, vomiting, diarrhea, and constipation, Back: Negative for injury and pain, : Negative for injury, bleeding, discharge, and swelling, MS/Extremity: Negative for injury and deformity, Skin: Negative for injury, rash, and discoloration, Neuro: Negative for headache, weakness, numbness, tingling, and seizure, Psych: Negative for depression, anxiety, suicide ideation, homicidal ideation, and hallucinations, Allergy/Immunology: Negative for hives, rash, and allergies, Endocrine: Negative for neck swelling, polydipsia, polyuria, polyphagia, and marked weight changes, Hematologic/Lymphatic: Negative for swollen nodes, abnormal bleeding, and unusual bruising. Exam: 20:36 Head/Face: Normocephalic, atraumatic. Eyes: Pupils equal round and reactive to light, mh7 extra-ocular motions intact. Lids and lashes normal. Conjunctiva and sclera are non-icteric and not injected. Cornea within normal limits. Periorbital areas with no swelling, redness, or edema. Neck: Trachea midline, no thyromegaly or masses palpated, and no cervical lymphadenopathy. Supple, full range of motion without nuchal rigidity, or vertebral point tenderness. No Meningismus. 20:36 Chest/axilla: Normal chest wall appearance and motion. Nontender with no deformity. No lesions are appreciated. 20:36 Abdomen/GI: Soft, non-tender, with normal bowel sounds. No distension or tympany. No guarding or rebound. No evidence of tenderness throughout. Back: No spinal tenderness. No costovertebral tenderness. Full range of motion. Skin: Warm, dry with normal turgor. Normal color with no rashes, no lesions, and no evidence of cellulitis. MS/ Extremity: Pulses equal, no cyanosis. Neurovascular intact. Full, normal range of motion. Neuro: Awake and alert, GCS 15, oriented to person, place, time, and situation. Cranial nerves II-XII grossly intact. Motor strength 5/5 in all extremities. Sensory grossly intact. Cerebellar exam normal. Normal gait. Psych: Awake, alert, with orientation to person, place and time. Behavior, mood, and affect are within normal limits. 20:36 Constitutional: The patient appears in no acute distress, alert, awake, anxious. 20:36 Constitutional: The patient appears in obvious distress, mildly distressed. 20:36 Cardiovascular: Rate: tachycardic, Rhythm: regular, Pulses: no pulse deficits are appreciated, Heart sounds: normal, normal S1and S2, Edema: is not appreciated, JVD: is not appreciated. 20:36 Respiratory: mild respiratory distress is noted, Respirations: prolonged exhalation, that is mild, tachypnea, that is mild, Breath sounds: wheezing: expiratory that is moderate, is heard diffusely, Respiratory rate: 28 Vital Signs: 20:09 BP 142 / 102; Pulse 110; Resp 28; Temp 98.7; Pulse Ox 96% on R/A; Weight 81.65 kg; ab2 Height 5 ft. 4 in. (162.56 cm); Pain 0/10; 21:44 BP 157 / 87; Pulse 92; Resp 24; Pulse Ox 100% on R/A; Pain 0/10; jude 21:55 Pulse 97; Resp 20; Pulse Ox 100% on R/A; Pain 5/10; jude 23:13 BP 132 / 78; Pulse 92; Resp 16; Pulse Ox 100% on R/A; Pain 5/10; jude 23:26 BP 133 / 79; Pulse 88; Resp 18; Pulse Ox 100% on R/A; jude 20:09 Body Mass Index 30.90 (81.65 kg, 162.56 cm) ab2 MDM: 12/31 00:10 Data reviewed: vital signs, nurses notes, old medical records, lab test result(s), EKG, [facility] radiologic studies, plain films. ED course: Informed by nursing staff that patient left against medical advice. She would not wait to speak with doctor.. 07:15 Patient medically screened. [facility] 12/30 20:25 Order name: Basic Metabolic Panel; Complete Time: 21:59 [facility] 12/30 20:25 Order name: CBC with Diff; Complete Time: 21:59 [facility] 12/30 20:25 Order name: LFT's; Complete Time: 21:59 [facility] 12/30 20:25 Order name: Magnesium; Complete Time: 21:59 [facility] 12/30 20:25 Order name: NT PRO-BNP; Complete Time: 21:59 [facility] 12/30 20:25 Order name: PT-INR; Complete Time: 21:10 [facility] 12/30 20:25 Order name: Troponin HS; Complete Time: 21:59 [facility] 12/30 20:25 Order name: XRAY Chest (1 view); Complete Time: 21:10 [facility] 12/30 20:27 Order name: COVID-19/FLU A+B (Document "Date of Onset" if Symptomatic) [facility] 12/30 20:40 Order name: Lactate; Complete Time: 22:28 [facility] 12/30 20:40 Order name: Procalcitonin [facility] 12/30 20:40 Order name: Blood Culture Adult (2) [facility] 12/30 20:25 Order name: EKG; Complete Time: 20:26 [facility] 12/30 20:25 Order name: Cardiac monitoring; Complete Time: 21:43 [facility] 12/30 20:25 Order name: EKG - Nurse/Tech; Complete Time: 21:43 [facility] 12/30 20:25 Order name: IV Saline Lock; Complete Time: 21:43 [facility] 12/30 20:25 Order name: Labs collected and sent; Complete Time: :44 [facility] 12/30 20:25 Order name: O2 Per Protocol; Complete Time: : [facility] 12/30 20:25 Order name: O2 Sat Monitoring; Complete Time: :44 [facility] 12/30 20:27 Order name: Urine Dipstick-Ancillary (obtain specimen) [facility] 12/30 20:27 Order name: Urine Test (obtain specimen) [facility] Administered Medications: 12/30 20:44 Drug: Xopenex (levalbuterol) 1.25 mg Route: Inhalation; jude 20:44 Drug: AtroVENT (ipratropium) Aerosol 0.5 mg Route: Inhalation; jude 23:16 Not Given (Patient Refused): SOLU-Medrol (methylPrednisoLONE) 125 mg IVP once jude 23:17 Not Given (Patient Refused): NS 0.9% 1000 ml IV at 1000 ml once jude Disposition Summary: 12/30/21 23:53 Left Against Medical Advice Location: Home jude Condition: Stable jude Discharge Instructions: - Discharge Summary Sheet [facility] - Shortness of Breath, Adult, Keat-ur-Ikqj [facility] - Cough, Adult, Atnt-ih-Kkpm [facility] Signatures: Dispatcher [employer] Bhaskar Méndez, IT SOLUTIONS ARCHITECT-C [employer] ARCHITECT-Cla1 Yuniel Mccray MD MD [facility] Emily Mckeon RN RN bo Bleininger, Alexis ab2
[2021-12-31 01:01] VITALS: TEMP 98.7
[2021-12-31 01:07] VITALS: O2SAT 100
[2021-12-31 01:14] VITALS: BP 133/79
--- NOTE | 2021-12-31 09:45 | EKG ---
Test Date: 2021-12-30 Test Time: 21:26:03 Director Of Channel Marketing: MEASUREMENT RESULTS: Intervals: Rate: 96 IN: 112 QRSD: 76 QT: 322 QTc: 406 Chandler: P: 74 IN: 112 QRS: 77 T: 268 INTERPRETIVE STATEMENTS: Normal sinus rhythm Biatrial enlargement ST & T wave abnormality, consider inferior ischemia ST & T wave abnormality, consider anterolateral ischemia Abnormal ECG Compared to ECG 11/20/2021 21:49:19 ST (T wave) deviation now present Sinus tachycardia no longer present T-wave abnormality no longer present Possible ischemia still present Electronically Signed On 12-31-21 09:43:39 CDT by Drake Blakely
== END 2021-12-30 23:53 | disposition left against medical advice (07) ==
LOC: ER 20:06
DX: U07.1 COVID-19 (principal); R05.9 Cough, unspecified; I10 Essential (primary) hypertension; Z88.5 Allergy status to narcotic agent; Z88.6 Allergy status to analgesic agent
CPT/HCPCS: 93005; 87040 ×2; 85025; 80048; 36415; 83735; 85610; 80076; 83605; 84484; 84145; 83880; 0240U; 71045; 99284; J2930

== ENCOUNTER 2022-03-26 23:43 | Emergency (ER) | payer OTHER ==
--- OUTSIDE RECORDS SUMMARY | 2022-03-26 23:58 | XMS REPORT | Continuity of Care Document ---
:1970 Author Organization [facility] t Address [address] [place] [address] Dr. Hager[address] [place] [id number] Care Team Providers Name Role Phone Shaheen OLMEDO JR Primary Care Physician Unavailable Poppy MADISON Attending Clinician Unavailable Poppy MADISON Attending Clinician Unavailable 1, Sleep Lab Bed Attending Clinician Unavailable Poppy Madison MD Attending Clinician Only, Test Attending Clinician Unavailable Doctor Unassigned, Name Attending Clinician Unavailable MICHAEL OLIVAREZ Attending Clinician Unavailable Chapin PAUL Attending Clinician SETH Attending Clinician Unavailable Seth PAUL Attending Clinician CHEN Attending Clinician Unavailable CHEN Attending Clinician Unavailable Tc DEL ROSARIO Attending Clinician Unavailable Tc Del Rosario DO Attending Clinician DR RAKESH Attending Clinician Unavailable Anjum GUILLEN Attending Clinician Unavailable Anjum Guillen MD Attending Clinician Heart RN, M Attending Clinician MARY Attending Clinician Unavailable Guy YI Attending Clinician Mary YI Attending Clinician TEQWIMUAH Attending Clinician Unavailable Jonh Brush MD Attending Clinician Teqwimuah DO Attending Clinician Evelin GRAJEDA, L Attending Clinician Unavailable REHANA Attending Clinician Unavailable Ilan YI Attending Clinician Josie YI Attending Clinician Tal YI Attending Clinician Rehana YI Attending Clinician Jonh SHAIKH Attending Clinician Unavailable Jonh SHAIKH Attending Clinician Unavailable MICHAEL OLIVAREZ Admitting Clinician Unavailable SETH Admitting Clinician Unavailable CHEN Admitting Clinician Unavailable Tc DEL ROSARIO Admitting Clinician Unavailable DR RAKESH Admitting Clinician Unavailable Anjum GUILLEN Admitting Clinician Unavailable MARY Admitting Clinician Unavailable Mary YI Admitting Clinician TEQWIMUA Admitting Clinician Unavailable Teqwimuaannelise DO Admitting Clinician TAL Admitting Clinician Unavailable Tal YI Admitting Clinician Payers Payer Name Policy Type Policy Number Effective Date Expiration Date S eda SILVESTRE FROM [id number] 2021 [facility] 00:00:00 0111 [id number] 2021 00:00:00 Problems Condition Condition Condition Status Onset Resolution Last Treating Co mments Source Name Details Category Date Date Treatment Clinician Date Transient Transient Disease Active Uni vers alteration alteration 6-25 it y of of of 00:00: [place] awareness awareness 00 [facility] Branch Gastric Gastric Disease Active Univers ulcer ulcer 6-22 ity of 00:00: [place] 00 [facility] Branch Pneumonia Pneumonia Disease Active Uni vers 4-04 ity of 00:00: [place] 00 [facility] Branch Acute Acute Disease Active Univers asthma [...] (BMI 2-12 ity of 30-39.9) 30-39.9) 00:00: Medical Branch Acute Acute Disease Active Univers hypoxemic hypoxemic 2-12 ity of respirator respirator [place] failure y failure 00 [facility] Branch Chronic Chronic Disease Active Univers pain due pain due 2-04 ity of to injury to injury 00:00[place] Dyslipidem Dyslipidem Disease Active U barbyers ia ia 2-04 ity of 00:00: Medical Branch Gastro-eso Gastro-eso Disease Active U sofie phageal phageal 2-04 ity of reflux reflux 00:00: [place] disease disease 00 Medical with with Branch esophagiti esophagiti s, with s, with bleeding bleeding Generalize Generalize Disease Active U nivers d anxiety d anxiety 2-04 ity of disorder disorder 00:00: Medical Branch Pain of Pain of Disease Active Univers cervical cervical 2-04 ity of spine spine 00:00: [place] [facility] Depo-Prove Depo-Prove Disease Active U nivers ra ra 4-13 ity of contracept contracept 00:[place] lloyd status lloyd status 00 Nm dical Branch Eczema Eczema Disease Active Univers 8-13 ity of 00:00: [place] [facility] Essential Essential Disease Active Uni vers hypertensi hypertensi 8-13 it y of on on 00:00: [place] [facility] Back pain Back pain Disease Active Uni vers 2-06 ity of 00:00: [place] [facility] Allergies, Adverse Reactions, Alerts Allergy Allergy Status Severity Reaction(s) Onset Inactive Treating Comm ents Source Name Type Date Date Clinician SEAFOOD/ Food Active High Anaphylaxis Uni vers FISH 4-02 ity of 00:00: [place] [facility] Seafood/ Food Active Anaphylaxis Pts Uni vers Fish Allergy 12-03 tongue ity of 00:00: swells/ [place] 00 difficult Medical y Branch breathing NSAIDS Drug Active Unknown-Cmnt Univ ers (NON-MADAN Class 2-12 ity of ROIDAL 00:00: [place] ANTI-INF 00 Medical LAMMATOR Branch Y DRUG) Nsaids Propensi Active Unknown - Unive rs (Non-Madan ty to See comments 2-12 it y of roidal adverse 00:00: [place] Anti-Inf reaction 00 Medica l lammator s Branch y Drug) Nsaids Propensi Active Unknown - Unive rs (Non-Madan ty to See comments 2-12 it y of roidal adverse 00:00: [place] Anti-Inf reaction 00 Medica l lammator s Branch y Drug) naproxen DA Active [facility] 10-30 [place] [facility] Naproxen Drug Active Other - See Swelling U nivers Allergy comments 03-11 of ity of 00:00: tongueSwe [place] 00 lling of Medical the Branch tongue Naproxen Propensi Active Swelling Swelling Un guillermina ty to 03-11 of tongue ity of adverse 00:00: [place] reaction 00 Medical s to Branch drug NAPROXEN DRUG Active High Swelling Univer s INGREDI 03-11 ity of 00:00: [place] 00 Medical Branch Naproxen DA Active Unknown [facility] Ibuprofe DA Active Unknown [facility] Social History Social Habit Start Date Stop Date Quantity Comments Source History [facility] o f Alcohol Std Drinks [facility] History [facility] o f Alcohol Binge [place] [facility] al Branch History [facility] o f Alcohol Frequency [facility] edical Branch Exposure to 2022-02-15 2022-02-25 Not sure University of SARS-CoV-2 (event) 00:00:00 18:22:00 [facility] Alcohol intake 2022-02-22 2022-02-22 Current drinker Unive rsity of 00:00:00 00:00:00 of alcohol [place] Medical (finding) Branch Education 2021-10-15 2021-10-15 12 University of 00:00:00 00:00:00 [facility] Tobacco Comment 2021-10-15 2021-10-15 30 years ago Univers ity of 00:00:00 00:00:00 [facility] Cigarettes smoked 2021-10-15 2021-10-15 Univers ity of current (pack per 00:00:00 00:00:00 [facility] ) - Reported Branch Cigarette 2021-10-15 2021-10-15 University of pack-years 00:00:00 00:00:00 [facility] Tobacco use and 2021-10-15 2021-10-15 Smokeless tobacco Un iversity of exposure 00:00:00 00:00:00 non-user [facility] Alcohol Comment 2016-12-14 2016-12-14 infrequent - Univers ity of 00:00:00 00:00:00 family parties, [facility] ical wine, 12 oz/time [place] History of tobacco 2001-12-14 Cigarette Smoker University of use 00:00:00 [facility] Sex Ass[birth year] At [birth year] Universit y of 00:00:00 00:00:00 [facility] Smoking Status Start Date Stop Date Source Ex-smoker 2021-10-15 00:00:00 2021-10-15 00:00:00 Universi ty of [facility] Medications Ordered Filled Start Stop Current Ordering Indication Dosage Frequency Signature Comments Components Source Medication Medication Date Date Medication? Clinician (SIG) Name Name enoxaparin Yes 40mg 40 mg, Unive rs (LOVENOX) 6-26 Subcutaneo ity of injection 14:00: [place] 40 [place] 00 First dose Medical [facility] 02/26/22 at 0900, Until Discontinu ed, Routine amLODIPine Yes 10mg 10 mg, Unive rs (NORVASC) 6-26 Oral, ity of tablet 10 14:00: DAILY, [place] mg 00 First dose Medical on [facility] 02/26/22 at 0900, Until Discontinu ed, Routine celecoxib Yes 100mg Take 100 Uni vers (CELEBREX) 6-26 mg by ity of 100 mg 12:37: mouth 2 [place] capsule 35 (two) Medical times [place] daily with meals. amLODIPine Yes 10mg Take 10 mg U nivers 10 mg 6-26 by mouth ity of tablet 12:37: daily. [place] 35 Medical Branch FLUoxetine 2022-0 Yes 10mg Take 10 mg U nivers 10 mg 6-26 by mouth ity of capsule 12:37: daily. [address] traMADoL 2022-0 Yes 100mg Take 100 Univ ers 100 mg 6-26 mg by ity of capsule 12:37: mouth [place] 35 every 6 Medical (six) Branch hours as needed. celecoxib 2022-0 Yes 100mg Take 100 Uni vers (CELEBREX) 6-26 mg by ity of 100 mg 12:37: mouth 2 [place] capsule 35 (two) Medical times Branch daily with meals. amLODIPine 2022-0 Yes 10mg Take 10 mg U nivers 10 mg 6-26 by mouth ity of tablet 12:37: daily. [address] FLUoxetine 2022-0 Yes 10mg Take 10 mg U nivers 10 mg 6-26 by mouth ity of capsule 12:37: daily. [address] traMADoL 2022-0 Yes 100mg Take 100 Univ ers 100 mg 6-26 mg by ity of capsule 12:37: mouth [place] 35 every 6 Medical (six) Branch hours as needed. celecoxib 2022-0 Yes 100mg Take 100 Uni vers (CELEBREX) 6-26 mg by ity of 100 mg 12:37: mouth 2 [place] capsule 35 (two) Medical times Branch daily with meals. amLODIPine 2022-0 Yes 10mg Take 10 mg U nivers 10 mg 6-26 by mouth ity of tablet 12:37: daily. [address] FLUoxetine 2022-0 Yes 10mg Take 10 mg U nivers 10 mg 6-26 by mouth ity of capsule 12:37: daily. [address] traMADoL 2022-0 Yes 100mg Take 100 Univ ers 100 mg 6-26 mg by ity of capsule 12:37: mouth [place] 35 every 6 Medical (six) Branch hours as needed. celecoxib 2022-0 Yes 100mg Take 100 Uni vers (CELEBREX) 6-26 mg by ity of 100 mg 12:37: mouth 2 [place] capsule 35 (two) Medical times Branch daily with meals. amLODIPine 2022-0 Yes 10mg Take 10 mg U nivers 10 mg 6-26 by mouth ity of tablet 12:37: daily. [address] FLUoxetine 2022-0 Yes 10mg Take 10 mg U nivers 10 mg 6-26 by mouth ity of capsule 12:37: daily. [place] 35 [facility] traMADoL 0 Yes 100mg Take 100 Univ ers 100 mg 6-26 mg by ity of capsule 12:37: mouth [place] [id number] every 6 Medical (six) Branch hours as needed. ondansetron 0 Yes 4mg 4 mg, Slow Univers (ZOFRAN 02-26 IV Push, ity of (PF)) 04:30: Q6HPRN, [place] injection 4 54 Starting Medi dayna [facility] 02/25/22 at 2330, Until Discontinu ed, Routine, Nausea and Vomiting (N/V) acetaminoph 0 Yes 650mg 650 mg, Un guillermina en 02-26 Oral, ity of (TYLENOL) 04:30: Q6HPRN, [place] tablet 650 45 Starting Medic al mg on [facility] 02/25/22 at 2330, Until Discontinu ed, Routine, Pain (scale 1-3) ondansetron 2021- No 4mg 4 mg, Slow Univers (ZOFRAN 02-23 IV Push, ity of (PF)) 05:45: 04:58 ONCE, 1 [place] injection 4 00 :00 dose, On Medi dayna mg [facility] 02/23/22 at 0045, SE morpHINE (4 2021- No 4mg 4 mg, Slow Univers mg/mL) 02-23 IV Push, ity of injection 4 05:45: 04:58 ONCE, 1 [place] mg 00 :00 dose, On Medical [facility] 02/23/22 at 0045, STAT acetaminoph 2021- No 1000mg 1,000 mg, Univers en 02-23 Oral, ity of (TYLENOL) 04:00: 03:13 ONCE, 1 [place] tablet 00 :00 dose, On Medical 1,000 mg [facility] 02/22/22 at 2300, SE methocarbam 2021-0 2021- No 1000mg 1,000 mg, Univers oL 02-23 Oral, ity of (ROBAXIN) 04:00: 03:14 ONCE, 1 [place] tablet 00 :00 dose, On Medical 1,000 mg [facility] 02/22/22 at 2300, SE ipratropium 2021- No 3mL 3 mL, Univ ers -albuteroL 01-29 Inhalation it y of (DUONEB) 14:15: 14:06 , ONCE [place] 0.5 mg-3 00 :00 NOW, 1 Medical mg(2.5 mg dose, On Branch base)/3 mL Sun nebulizer 01/29/22 at solution 3 0915, mL Routine albuterol 2021- No 5mg 5 mg, Univer s (PROVENTIL) 01-29 Inhalation i ty of 2.5 mg /3 14:15: 13:42 , ONCE, 1 [place] mL (0.083 00 :00 dose, On Medica l [facility] nebulizer 01/29/22 at solution 5 0915, SE mg FENTanyl PF 2021- No 50ug 50 mcg, Un guillermina (SUBLIMAZE 01-03 Intramuscu it y of (PF)) 04:45: 04:36 lar, ONCE, [place] injection 00 :00 1 dose, On Medi dayna 50 mcg 01/02/22 Branch at 2345, Routine celecoxib 0 Yes 100mg Take 100 Uni vers (CELEBREX) 4-06 mg by ity of 100 mg 12:53: mouth 2 [place] capsule 05 (two) Medical times Branch daily with meals. amLODIPine 0 Yes 10mg Take 10 mg U nivers 10 mg 4-06 by mouth ity of tablet 12:53: daily. [address] FLUoxetine 2021-0 Yes 10mg Take 10 mg U nivers 10 mg 4-06 by mouth ity of capsule 12:53: daily. [address] traMADoL 2021-0 Yes 100mg Take 100 Univ ers 100 mg 4-06 mg by ity of capsule 12:53: mouth [place] 05 every 6 Medical (six) Branch hours as needed. celecoxib 2021-0 Yes 100mg Take 100 Uni vers (CELEBREX) 4-06 mg by ity of 100 mg 12:53: mouth 2 [place] capsule 05 (two) Medical times Branch daily with meals. amLODIPine 2021-0 Yes 10mg Take 10 mg U nivers 10 mg 4-06 by mouth ity of tablet 12:53: daily. [address] FLUoxetine 2022-0 Yes 10mg Take 10 mg U nivers 10 mg 4-06 by mouth ity of capsule 12:53: daily. [address] traMADoL 2022-0 Yes 100mg Take 100 Univ ers 100 mg 4-06 mg by ity of capsule 12:53: mouth [place] 05 every 6 Medical (six) Branch hours as needed. celecoxib 2022-0 Yes 100mg Take 100 Uni vers (CELEBREX) 4-06 mg by ity of 100 mg 12:53: mouth 2 [place] capsule 05 (two) Medical times Branch daily with meals. amLODIPine 2022-0 Yes 10mg Take 10 mg U nivers 10 mg 4-06 by mouth ity of tablet 12:53: daily. [address] FLUoxetine 2022-0 Yes 10mg Take 10 mg U nivers 10 mg 4-06 by mouth ity of capsule 12:53: daily. [address] traMADoL 2022-0 Yes 100mg Take 100 Univ ers 100 mg 4-06 mg by ity of capsule 12:53: mouth [place] 05 every 6 Medical (six) Branch hours as needed. celecoxib 2022-0 Yes 100mg Take 100 Uni vers (CELEBREX) 4-06 mg by ity of 100 mg 12:53: mouth 2 [place] capsule 05 (two) Medical times Branch daily with meals. amLODIPine 2022-0 Yes 10mg Take 10 mg U nivers 10 mg 4-06 by mouth ity of tablet 12:53: daily. [address] FLUoxetine 2022-0 Yes 10mg Take 10 mg U nivers 10 mg 4-06 by mouth ity of capsule 12:53: daily. [address] traMADoL 2022-0 Yes 100mg Take 100 Univ ers 100 mg 4-06 mg by ity of capsule 12:53: mouth [place] 05 every 6 Medical (six) Branch hours as needed. celecoxib 2022-0 Yes 100mg Take 100 Uni vers (CELEBREX) 4-06 mg by ity of 100 mg 12:53: mouth 2 [place] capsule 05 (two) Medical times Branch daily with meals. amLODIPine 2022-0 Yes 10mg Take 10 mg U nivers 10 mg 4-06 by mouth ity of tablet 12:53: daily. [address] FLUoxetine 2022-0 Yes 10mg Take 10 mg U nivers 10 mg 4-06 by mouth ity of capsule 12:53: daily. [address] traMADoL 0 Yes 100mg Take 100 Univ ers 100 mg 4-06 mg by ity of capsule 12:53: mouth [place] [id number] every 6 Medical (six) Branch hours as needed. celecoxib 0 Yes 100mg Take 100 Uni vers (CELEBREX) 4-06 mg by ity of 100 mg 12:53: mouth 2 [place] capsule 05 (two) Medical times [place] daily with meals. amLODIPine 0 Yes 10mg Take 10 mg U nivers 10 mg 4-06 by mouth ity of tablet 12:53: daily. [address] FLUoxetine 2021-0 Yes 10mg Take 10 mg U nivers 10 mg 4-06 by mouth ity of capsule 12:53: daily. [address] traMADoL 0 Yes 100mg Take 100 Univ ers 100 mg 4-06 mg by ity of capsule 12:53: mouth [place] [phone] every 6 Medical (six) Branch hours as needed. predniSONE 2021- No 10mg Take 10 mg Univers 10 mg -02 04-06 by mouth ity of tablet 10:31: 00:00 daily. [place] 31 :00 [facility] Branch hydrALAZINE 2021- No 100mg Take 100 Univers 100 mg 4- 04-06 mg by ity of tablet 10:31: 00:00 mouth 2 [place] 31 :00 (two) Medical times [place] daily. cefTRIAXone 2021- No 2000mg 2,000 mg, Univers (ROCEPHIN) 12-07 04-11 Intravenou it y of injection 05:00: 04:59 s, Q24H [place] 2,000 mg 00 :00 ABX, 5 Medical doses, Branch First dose on Sun12/07/21 at 0000, Last dose on Sun12/11/21 at 0000
Re ason for Anti-Infec tive: Documented Infection< br>Documen britney Infection Site: Respirator y
Durat ion of Therapy: 7 days predniSONE 2021-0 2021- No [id number] Take 2 Univers 10 mg -02 04-22 tablets by ity of tablet 00:00: 04:59 mouth [place] 00 :00 daily for Medical 5 days, Branch THEN 1 tablet daily for 5 days, THEN 0.5 tablets daily for 5 days. predniSONE 2021- No [id number] Take 2 Univers 10 mg 12-07 tablets by ity of tablet 00:00: 04:59 mouth [place] 00 :00 daily for Medical 5 days, Branch THEN 1 tablet daily for 5 days, THEN 0.5 tablets daily for 5 days. azithromyci 2021- No [id number] 500mg Take 1 Univers n 500 mg 12-07 tablet by ity o f tablet 00:00: 04:59 mouth [place] 00 :00 daily for Medical 2 days. Branch azithromyci 2021- No [id number] 500mg Take 1 Univers n 500 mg 12-07 tablet by ity o f tablet 00:00: 04:59 mouth [place] 00 :00 daily for Medical 2 days. [place] traMADoL Yes 50mg 50 mg, Univers (ULTRAM) 4-05 Oral, ity of tablet 50 16:44: Q6HPRN, [place] mg 28 Starting Medical on [facility] 12/06/21 at 1144, Until Discontinu ed, Routine, Pain (scale 4-6) ALPRAZolam Yes .5mg 0.5 mg, Univ ers (XANAX) 4-05 Oral, ity of tablet 0.5 16:43: BIDPRN, [place] mg 05 Starting Medical on [facility] 12/06/21 at 1143, Until Discontinu ed, Routine, anxiety HYDROcodone Yes 1{tbl} 1 tablet, Univers -acetaminop 4-05 Oral, ity of hen (NORCO 16:42: Q6HPRN, [place] 5) 5-325 mg 38 Starting Medi dayna tablet 1 on [facility] tablet 12/06/21 at 1142, Until Discontinu ed, Routine, Pain (scale 7-10) azithromyci 2021- No 500mg 500 mg, IV Univers n -01 04-08 Piggyback, ity of (ZITHROMAX) 14:45: 14:44 Q24H ABX, [place] 500 mg in 00 :00 3 doses, Medica l NaCl 0.9% First dose Bran ch (NS) 250 mL on [facility] VIAL-MATE 12/06/21 at IV 0945, Last piggyback dose on [place] 12/08/21 at 0945, Administer over 60 Minutes, 250 mL
Reas on for Anti-Infec tive: Empiric Therapy for Suspected Infection< br>Empiric Therapy Site: Respirator y
Durat ion of therapy: 72 hours KCL 2022-0 Yes 40meq 40 mEq, Univers (KLOR-CON 4-05 Oral, ity of M20) tablet 14:00: DAILY, [place] 40 mEq 00 First dose Medical on [facility] 12/06/21 at 0900, Until Discontinu ed, Routine enoxaparin 202-0 Yes 40mg 40 mg, Unive rs (LOVENOX) 4-05 Subcutaneo ity of injection 14:00: us, Q24H, [place] as 40 mg 00 First dose Medical on [facility] 12/06/21 at 0900, Until Discontinu ed, Routine predniSONE 2022-0 Yes 20mg 20 mg, Unive rs (DELTASONE) 4-05 Oral, ity of tablet 20 14:00: DAILY, [place] mg 00 First dose Medical on [facility] 12/06/21 at 0900, Until Discontinu ed, Routine FLUoxetine 2022-0 Yes 20mg 20 mg, Unive rs (PROZAC) 4-05 Oral, ity of capsule 20 14:00: DAILY, [place] mg 00 First dose Medical on [facility] 12/06/21 at 0900, Until Discontinu ed, Routine amLODIPine 2022-0 Yes 5mg 5 mg, Univer s (NORVASC) 4-05 Oral, ity of tablet 5 mg 14:00: DAILY, [place] 00 First dose Medical on [facility] 12/06/21 at 0900, Until Discontinu ed, Routine magnesium 2022-0 Yes 400mg 400 mg, Univ ers oxide 4-05 Oral, BID, ity of (MAG-OX 13:00: First dose [place] 400) tablet 00 on [facility] l 400 mg 12/06/21 at Branch 0800, Until Discontinu ed, Routine ipratropium 2022-0 Yes 3mL 3 mL, Unive rs -albuteroL 4-05 Inhalation ity of (DUONEB) 13:00: , QID, [place] 0.5 mg-3 00 First dose Medic al mg(2.5 mg on Sun base)/3 mL 12/06/21 at nebulizer 0800, solution 3 Until mL Discontinu ed, Routine lactobacill Yes .5mg 0.5 mg, Uni vers us 12-06 Oral, BID, ity of acidophilus 13:00: First dose [place] tablet 0.5 00 on Sun Medical mg 12/06/21 at Branch 0800, Until Discontinu ed, Routine levoFLOXaci 2021- No 750mg 750 mg, IV Univers n in D5W 12-06 Piggyback, ity of (LEVAQUIN) 09:30: 13:39 Q24H ABX, [place] 750 mg/150 00 :25 First dose Med ical mL on Sun Piggyback 12/06/21 at 750 mg 0430, Until [...] s mg 42 :40 Starting Medical on Sun12/06/21 at 0314, Until Sun12/06/21 at 1144, Routine, Pain (scale 7-10) HYDROcodone 2021- No 1{tbl} 1 tablet, Univers -acetaminop 12-06 Oral, ity of hen (NORCO) 06:00: 04:59 ONCE, 1 [place] 10-325 mg 00 :00 dose, On Medica l tablet 1 Sun12/06/21 Branc h tablet at 0100, Routine fluticasone Yes 1{puff} 1 Puff, Univers propion-lavon 12-05 Inhalation it y of meteroL 13:00: , Q12H, [place] (ADVAIR) 00 First dose Medic al 250-50 on Sun mcg/dose 4/4/22 at inhalation 0800, disk 1 Puff Until Discontinu ed, Routine lurasidone 0 2021- No Take by Un guillermina HCl (LATUDA 12-05 04-04 mouth. ity o f ORAL) 05:43: 00:00 [place] 55 :00 Medical Branch acetylcyste 0 2021- No 4mL 800 mg (4 Univers ine 12-05 04-07 mL), ity of (MUCOMYST) 05:00: 04:59 Inhalation [place] 200 mg/mL 00 :00 , Q6H, 12 Medic al (20 %) doses, Branch solution First dose 800 mg on Sun12/05/21 at 0000, Last dose on Sun12/07/21 at 1800, Routine cefTRIAXone Yes 1000mg 1,000 mg, Univers (ROCEPHIN) 4-04 IV ity of 1,000 mg in 03:00: Piggyback, [place] NaCl 0.9% 00 Q24H ABX, Medic al (NS) 50 mL First dose Bra ksh MINI-BAG on 12/04/21 at 2200, Until Discontinu ed, Administer over 30 Minutes, 50 mL
Reas on for Anti-Infec tive: Empiric Therapy for Suspected Infection< br>Empiric Therapy Site: Respirator y
Durat ion of therapy: 72 hours ipratropium 0 Yes 3mL 3 mL, Unive rs -albuteroL 4-04 Inhalation ity of (DUONEB) 02:00: , Q6HPRN, [place] 0.5 mg-3 00 Starting Medical mg(2.5 mg on Sun Branch base)/3 mL 12/04/21 at nebulizer 2100, solution 3 Until mL Discontinu ed, Routine, Wheezing methylpredn Yes 60mg 60 mg, Univ ers isolone sod 4-04 Slow IV ity o f succ 02:00: Push, [place] (SOLU-MEDRO 00 Q12H, Medical L) First dose Branch injection on Sun 60 mg 12/04/21 at 2100, Until Discontinu ed, Routine HYDROcodone 0 Yes 1{tbl} 1 tablet, Univers -acetaminop 4-04 Oral, ity of hen (NORCO) 01:55: Q6HPRN, [place] as 10-325 mg 51 Starting Medica l tablet 1 on Sun Branch tablet 12/04/21 at 205, Until Discontinu ed, Routine, Pain (scale 4-6) iopamidol 2021- No [id number] 100mL 100 mL, Univers (ISOVUE 12-04- Intravenou ity o f 370-500 mL) 20:43: 20:43 s, ONCE, 1 [place] injection 00 :00 dose, On Medica l 100 mL [place] 12/04/21 Branch at 1600, Routine enoxaparin Yes 40mg 40 mg, Unive rs (LOVENOX) 12-04 Subcutaneo ity of injection 14:00: [place], DAILY, [place] 40 mg 00 First dose Medical on [facility] 12/04/21 at 0900, Until Discontinu ed, Routine amLODIPine Yes 5mg 5 mg, Univer s (NORVASC) 12-04 Oral, ity of tablet 5 mg 14:00: DAILY, [place] 00 First dose Medical on [facility] 12/04/21 at 0900, Until Discontinu ed, Routine predniSONE No 20mg 20 mg, Univ ers (DELTASONE) 12-04 04-04 Oral, ity of tablet 20 14:00: 01:54 DAILY, [place] mg 00 :23 First dose Medical on [facility] 12/04/21 at 0900, Until Discontinu ed, Routine lurasidone Yes 20mg 20 mg, Unive rs (LATUDA) 12-04 Oral, ity of tablet 20 12:30: QAM-0730, [place] mg 00 First dose Medical on [facility] 12/04/21 at 0730, Until Discontinu ed doxycycline Yes 100mg 100 mg, Un guillermina hyclate 12-04 Oral, ity of (Vibramycin 11:00: Q12HA2, [place] as ) capsule 00 First dose Medi dayna 100 mg on [facility] 12/04/21 at 0600, Until Discontinu ed, SE
Re ason for Anti-Infec tive: Empiric Therapy for Suspected Infection< br>Empiric Therapy Site: Respirator y
Du ration of therapy: 7 days NaCl 0.9% 2021- No 500mL at 100 Univ ers (NS) IV 12-04-03 mL/hr, IV ity of infusion 11:00: 15:59 Infusion, [place] as 500 mL 00 :00 CONTINUOUS Medical , Starting Branch on [place] 12/04/21 at 0600, Until [place] 12/04/21 at 1059, Routine zolpidem 0 Yes 5mg 5 mg, Univers (AMBIEN) 4-03 Oral, ity of tablet 5 mg 06:14: QHSPRN, [place] 57 Starting Medical on [facility] 12/04/21 at 0114, Until Discontinu ed, Routine, Insomnia docusate Yes 100mg 100 mg, [facility] rs (COLACE) 03 Oral, BID, ity o f capsule 100 01:00: First dose [place] mg 00 on [facility] 12/03/21 at [place] 1999, Until Discontinu ed, Routine busPIRone Yes 5mg 5 mg, Univers (BUSPAR) 12-04 Oral, BID, ity o f tablet 5 mg 01:00: First dose [place] 00 on [facility] [facility] at [place] 1999, Until Discontinu ed, Routine ipratropium 0 2021- No 3mL 3 mL, [facility] ers -albuteroL 12-04 04-04 Inhalation it y of (DUONEB) 01:00: 01:56 , QID, [place] 0.5 mg-3 00 :47 First dose Medic al mg(2.[address] [facility] base)/3 mL 12/03/21 at nebulizer 2000, solution 3 Until mL Discontinu ed, Routine ondansetron Yes 4mg 4 mg, Slow Univers (ZOFRAN 12-03 IV Push, ity of (PF)) 22:05: Q6HPRN, [place] injection 4 11 Starting Medi dayna mg on [facility] 12/03/21 at 1705, Until Discontinu ed, Routine, Nausea and Vomiting (N/V) HYDROcodone 2021-0 2021- No 1{tbl} 1 tablet, [facility] -acetaminop 12-03 04-04 Oral, ity of hen (NORCO 22:05: 01:56 Q6HPRN, [place] as 5) 5-325 mg 07 :02 Starting Medi dayna tablet [address] [facility] tablet 12/03/21 at 1705, Until 12/04/21 at 205, Routine, Pain (scale 4-6) acetaminoph Yes 650mg 650 mg, Un guillermina en 12-03 Oral, ity of (TYLENOL) 22:05: Q6HPRN, [place] tablet 650 04 Starting Medic al mg on [facility] 12/03/21 at 1705, Until Discontinu ed, Routine, Pain (scale 1-3) methylpredn 2021- No 125mg 125 mg, U nivers isolone sod 12-03 Slow IV ity of succ 21:00: 22:03 Push, ONCE [place] (SOLU-MEDRO 00 :00 NOW, 1 Medica l L) dose, On [place] injection [facility] 12[facility]03[facility]21 125 mg at 1600, SE albuterol 2021- No 2.5mg 2.5 mg, Uni vers (PROVENTIL) 12-03 Inhalation i ty of 2.5 mg /3 21:00: 22:06 , QID, [place] mL (0.083 00 :33 First dose Medi dayna %) on [facility] nebulizer 12/03/21 at solution 1600, 2.5 mg Until Discontinu ed, Routine ipratropium 2021- No .5mg 0.5 mg, Un guillermina (ATROVENT) 12-03 Inhalation it y of 0.02 % 21:00: 22:06 , QID, [place] nebulizer 00 :24 First dose Medi dayna solution on [facility] 0.5 mg 12/03/21 at 1600, Until Discontinu ed, Routine predniSONE Yes 30mg 30 mg, Unive rs (DELTASONE) 11-12 Oral, ity of tablet 30 15:00: DAILY, [place] mg 00 First dose Medical (after Branch last modificati on) on [facility] 11/12/21 at 0900, Until Discontinu ed, Routine piperacilli Yes 3.375g 3.375 g, Univers n-tazobacta 11-11 IV ity of m (ZOSYN) 23:30: Piggyback, [...] Yes Take by Uni vers HCl (LATUDA 11 mouth. ity of ORAL) 17:32: [address] lurasidone Yes Take by Uni vers HCl (LATUDA 11 mouth. ity of ORAL) 17:32: [address] lurasidone Yes Take by Uni vers HCl (LATUDA 11 mouth. ity of ORAL) 17:32: [address] KCL 2021- No 20meq 20 mEq, Univers (KLOR-CON 11-11 Oral, ity of M20) tablet 02:00: 02:20 ONCE, 1 [place] 20 mEq 00 :00 dose, On [facility] Branch 11/10/21 at 2000, Routine predniSONE Yes [id number] 20mg Take 1 Univers 20 mg 3-11 tablet by ity of tablet 00:00: mouth [place] 00 daily. [facility] predniSONE Yes [id number] 20mg Take 1 Univers 20 mg 3-11 tablet by ity of tablet 00:00: mouth [place] 00 daily. [facility] predniSONE 2021- No [id number] 20mg Take 1 Univers 20 mg 3-11 04-04 tablet by ity of tablet 00:00: 00:00 mouth [place] 00 :00 daily. [facility] piperacilli 2021- No 3.375g 3.375 g, Univers n-tazobacta 11-10 IV ity of m (ZOSYN) 22:00: 21:01 Piggyback, [place] 3.375 g in 00 :00 Q8H ABX, Medic al NaCl 0.9% First dose Bran ch (NS) 100 mL on [facility] VIAL-MATE 11/10/21 at 1600, Until Discontinu ed, Administer over 4 Hours, 100 mL
Reas on for Anti-Infec tive: Empiric Therapy for Suspected Infection< br>Empi leandro Therapy Site: Respirator y
Durat ion of therapy: 72 hours enoxaparin 2-0 Yes 40mg 40 mg, Unive rs (LOVENOX) 3-10 Subcutaneo ity of injection 15:00: [place], DAILY, [place] 40 mg 00 First dose Medical on [facility] Branch 11/10/21 at 0900, Until Discontinu ed, Routine hydroCHLORO 202-0 Yes 12.5mg 12.5 mg, Univers thiazide 3-10 Oral, ity of (ESIDRIX) 15:00: DAILY, [place] capsule 00 First dose Medica l 12.5 mg on [facility] Branch 11/10/21 at 0900, Until Discontinu ed, Routine amLODIPine 2021-0 Yes 10mg 10 mg, Unive rs (NORVASC) 3-10 Oral, ity of tablet 10 15:00: DAILY, [place] mg 00 First dose Medical on [facility] 11/10/21 at 0900, Until Discontinu ed, Routine predniSONE 2021-0 2022- No 40mg 40 mg, Univ ers (DELTASONE) 3-10 03-11 Oral, ity of tablet 40 15:00: 17:05 DAILY, [place] mg 00 :49 First dose Medical on [facility] Branch 11/10/21 at 0900, Until Discontinu ed, Routine docusate 2021-0 Yes 100mg 100 mg, Unive rs (COLACE) 3-10 Oral, BID, ity o f capsule 100 14:00: First dose [place] mg 00 on [facility] 11/10/21 at Branch 0800, Until Discontinu ed, Routine busPIRone 2021-0 Yes 5mg 5 mg, Univers (BUSPAR) 3-10 Oral, BID, ity o f tablet 5 mg 14:00: First dose [place] 00 on [facility] 11/10/21 at Branch 0800, Until Discontinu ed, Routine lurasidone 2021-0 Yes 20mg 20 mg, Unive rs (LATUDA) 3-10 Oral, ity of tablet 20 13:30: QAM-0730, [place] as mg 00 First dose Medical on [facility] 11/10/21 at 0730, Until Discontinu ed morpHINE 2021-0 Yes 2mg 2 mg, Slow Uni vers injection 2 3-10 IV Push, ity of mg 07:05: Q4HPRN, [place] 58 Starting Medical on [place] Branch 11/10/21 at 0105, Until Discontinu ed, Routine, Pain (scale 7-10) ondansetron Yes 4mg 4 mg, Slow Univers (ZOFRAN 3-10 IV Push, ity of (PF)) 05:19: Q6HPRN, [place] injection 4 35 Starting Medi dayna mg on [place] Branch 11/09/21 at 2319, Until Discontinu ed, Routine, Nausea and Vomiting (N/V) HYDROcodone 0 202- No 1{tbl} 1 tablet, Univers -acetaminop 3-10 03-12 Oral, ity of hen (NORCO 05:19: 05:18 Q6HPRN, [place] as 5) 5-325 mg 30 :30 Starting Medi dayna tablet 1 on [place] Branch tablet 11/09/21 at 2319, Until 11/11/21 at 2318, Routine, Pain (scale 4-6) acetaminoph 0 Yes 650mg 650 mg, Un guillermina en 3-10 Oral, ity of (TYLENOL) 05:19: Q6HPRN, [place] tablet 650 28 Starting Medic al mg on [place] Branch 11/09/21 at 2319, Until Discontinu ed, Routine, Pain (scale 1-3) albuterol Yes 2{puff} 2 Puff, Un guillermina (VENTOLIN) 3-10 Inhalation ity of inhaler 2 05:17: , Q6HPRN, [place] as Puff 52 Starting Medical on Wed Branch 11/09/21 at 2317, Until Discontinu ed, Routine, Wheezing, Shortness of Breath iopamidol 0 202- No [id number] 100mL 100 mL, Univers (ISOVUE 3-10 03-10 [id number] Intravenou ity of 370-500 mL) 04:43: 04:44 s, ONCE, 1 [place] injection 00 :00 dose, On Medica l 100 mL 11/09/21 Branch at 2300, Routine morpHINE 2021- No 4mg 4 mg, Slow Un guillermina injection 4 3-10 03-10 IV Push, ity of mg 03:45: 02:57 ONCE, 1 [place] 00 :00 dose, On Medical 11/09/21 Branch at 2145, SE piperacilli 2021- No 3.375g 3.375 g, Univers n-tazobacta 3- 03-10 IV ity of m (ZOSYN) 03:45: 05:33 [...] mg Sun11/09/21 Branch at 2100, SE morpHINE 2021-2021- No 4mg 4 mg, Slow Un guillermina injection 4 3-10 03-10 IV Push, ity of mg 03:00: 01:58 ONCE, 1 [place] 00 :00 dose, On Medical Sun11/09/21 Branch at 2100, STAT albuterol 2021-0 Yes 2.5mg 2.5 mg, Univ ers (PROVENTIL) 3-10 Inhalation it y of 2.5 mg /3 02:00: , QID, [place] mL (0.083 00 First dose Medi dayna %) on [place] Branch nebulizer 11/09/21 at solution 2000, 2.5 mg Until Discontinu ed, Routine ipratropium 2021-0 Yes .5mg 0.5 mg, Uni vers (ATROVENT) 3-10 Inhalation ity of 0.02 % 02:00: , QID, [place] nebulizer 00 First dose Medi dayna solution on [facility] Branch 0.5 mg 11/09/21 at 1999, Until Discontinu ed, Routine hydroCHLORO 2021-0 Yes [id number] 12.5mg Take 1 Univers thiazide 2-22 capsule by ity o f 12.5 mg 00:00: mouth [place] capsule 00 daily. Medical Branch hydroCHLORO 2021-0 Yes [id number] 12.5mg Take 1 Univers thiazide 2-22 capsule by ity o f 12.5 mg 00:00: mouth [place] capsule 00 daily. Medical Branch hydroCHLORO 2021-0 Yes [id number] 12.5mg Take 1 Univers thiazide 2-22 capsule by ity o f 12.5 mg 00:00: mouth [place] capsule 00 daily. Medical Branch hydroCHLORO 0 Yes [id number] 12.5mg Take 1 Univers thiazide 2-22 capsule by ity o f 12.5 mg 00:00: mouth [place] capsule 00 daily. Medical Branch hydroCHLORO 2021-0 Yes [id number] 12.5mg Take 1 Univers thiazide 2-22 capsule by ity o f 12.5 mg 00:00: mouth [place] capsule 00 daily. Medical Branch hydroCHLORO 2021-0 Yes [id number] 12.5mg Take 1 Univers thiazide 2-22 capsule by ity o f 12.5 mg 00:00: mouth [place] capsule 00 daily. Medical Branch hydroCHLORO 2021-0 Yes [id number] 12.5mg Take 1 Univers thiazide 2-22 capsule by ity o f 12.5 mg 00:00: mouth [place] capsule 00 daily. Medical Branch hydroCHLORO 2021-0 2021- No [id number] 12.5mg Take 1 Univers thiazide 2-22 04-04 capsule by ity of 12.5 mg 00:00: 00:00 mouth [place] capsule 00 :00 daily. [facility] Branch hydroCHLORO 2021-0 2021- No [id number] 12.5mg Take 1 Univers thiazide 2-22 02-21 capsule by ity of 12.5 mg 00:00: 00:00 mouth [place] capsule 00 :00 daily for Medical 30 days. Branch hydroCHLORO 2021-0 2021- No [id number] 12.5mg Take 1 Univers thiazide 2-22 02-21 capsule by ity of 12.5 mg 00:00: 00:00 mouth [place] capsule 00 :00 daily for Medical 30 days. Branch lurasidone 0 Yes Take by Uni vers HCl (LATUDA 2-21 mouth. ity of ORAL) 17:53: [place] [address] Medical Branch lurasidone 2021-0 Yes Take by Uni vers HCl (LATUDA 2-21 mouth. ity of ORAL) 17:53: [place] [address] Medical Branch lurasidone 2021-0 Yes Take by Uni vers HCl (LATUDA 2-21 mouth. ity of ORAL) 17:53: [place] [address] Medical Branch lurasidone 2021-0 Yes Take by Uni vers HCl (LATUDA 2-21 mouth. ity of ORAL) 10:59: [place] [address] Medical Branch zolpidem 2021-0 202- No 5mg 5 mg, Univers (AMBIEN) 2-21 02-21 Oral, ity of tablet 5 mg 04:00: 03:07 ONCE, 1 [place] 00 :00 dose, On Medical [place] Branch 10/23/21 at 2200, Routine docusate 2021-0 Yes [id number] 100mg Take 1 U nivers 100 mg 2-21 capsule by ity of capsule 00:00: mouth [place] (two) Medical times Branch daily. busPIRone 5 2021-0 Yes [id number] 5mg Take 1 Univers mg tablet 2-21 tablet by ity o f 00:00: mouth [place] (two) Medical times Branch daily. chlorhexidi 2021-0 Yes [id number] 15mL Sw[place] and Univers ne 0.12 % -21 spit out ity of mouthwash 00:00: 15 mL 2 [place] (two) Medical times Branch daily. albuterol 2021-0 Yes [id number] 2{puff} Inhale 2 Univers 90 2-21 Puffs ity of mcg/actuati 00:00: every 6 [place] as on inhaler 00 (six) Medical hours as Branch needed for Wheezing or Shortness of Breath. predniSONE 2021-0 Yes [id number] 40mg Take 2 Univers 20 mg 2-21 tablets by ity of tablet 00:00: mouth [place] 00 daily. Medical Branch docusate 2021-0 Yes [id number] 100mg Take 1 U nivers 100 mg 2-21 capsule by ity of capsule 00:00: mouth 2 [place] (two) Medical times Branch daily. busPIRone 5 2021-0 Yes [id number] 5mg Take 1 Univers mg tablet 2-21 tablet by ity o f 00:00: mouth (two) Medical times Branch daily. chlorhexidi 2021-0 Yes [id number] 15mL Swish and Univers ne 0.12 % 2-21 spit out ity of mouthwash 00:00: 15 mL 2 (two) Medical times Branch daily. albuterol 2021-0 Yes [id number] 2{puff} Inhale 2 Univers 90 2-21 Puffs ity of mcg/actuati 00:00: every 6 [place] as on inhaler 00 (six) Medical hours as Branch needed for Wheezing or Shortness of Breath. predniSONE 2021-0 Yes [id number] 40mg Take 2 Univers 20 mg 2-21 tablets by ity of tablet 00:00: mouth daily. Medical Branch docusate 2021-0 Yes [id number] 100mg Take 1 U nivers 100 mg 2-21 capsule by ity of capsule 00:00: mouth (two) Medical times Branch daily. busPIRone 5 2021-0 Yes [id number] 5mg Take 1 Univers mg tablet 2-21 tablet by ity o f 00:00: mouth (two) Medical times Branch daily. chlorhexidi 2021-0 Yes [id number] 15mL Swish and Univers ne 0.12 % 2-21 spit out ity of mouthwash 00:00: 15 mL (two) Medical times Branch daily. albuterol 2021-0 Yes [id number] 2{puff} Inhale 2 Univers 90 2-21 Puffs ity of mcg/actuati 00:00: every 6 [place] as on inhaler 00 (six) Medical hours as Branch needed for Wheezing or Shortness of Breath. predniSONE 2021-0 Yes [id number] 40mg Take 2 Univers 20 mg 2-21 tablets by ity of tablet 00:00: mouth daily. Medical Branch docusate 2021-0 Yes [id number] 100mg Take 1 U nivers 100 mg 2-21 capsule by ity of capsule 00:00: mouth (two) Medical times Branch daily. busPIRone 5 2021-0 Yes [id number] 5mg Take 1 Univers mg tablet 2-21 tablet by ity o f 00:00: mouth 2 (two) Medical times Branch daily. chlorhexidi 2021-0 Yes [id number] 15mL Swish and Univers ne 0.12 % 2-21 spit out ity of mouthwash 00:00: 15 mL 2 (two) Medical times Branch daily. albuterol 2021-0 Yes [id number] 2{puff} Inhale 2 Univers 90 2-21 Puffs ity of mcg/actuati 00:00: every 6 [place] as on inhaler 00 (six) Medical hours as Branch needed for Wheezing or Shortness of Breath. docusate 2-0 Yes [id number] 100mg Take 1 U nivers 100 mg 2-21 capsule by ity of capsule 00:00: mouth (two) Medical times Branch daily. albuterol 2021-0 Yes [id number] 2{puff} Inhale 2 Univers 90 2-21 Puffs ity of mcg/actuati 00:00: every 6 [place] as on inhaler 00 (six) Medical hours as Branch needed for Wheezing or Shortness of Breath. busPIRone 5 2021-0 Yes [id number] 5mg Take 1 Univers mg tablet 2-21 tablet by ity o f 00:00: mouth (two) Medical times Branch daily. chlorhexidi 2021-0 Yes [id number] 15mL Swish and Univers ne 0.12 % 2-21 spit out ity of mouthwash 00:00: 15 mL (two) Medical times Branch daily. docusate 2-0 Yes [id number] 100mg Take 1 U nivers 100 mg 2-21 capsule by ity of capsule 00:00: mouth (two) Medical times Branch daily. busPIRone 5 2021-0 Yes [id number] 5mg Take 1 Univers mg tablet 2-21 tablet by ity o f 00:00: mouth 2 (two) Medical times Branch daily. chlorhexidi 2-0 Yes [id number] 15mL Swish and Univers ne 0.12 % 2-21 spit out ity of mouthwash 00:00: 15 mL (two) Medical times Branch daily. albuterol 2021-0 Yes [id number] 2{puff} Inhale 2 Univers 90 2-21 Puffs ity of mcg/actuati 00:00: every 6 [place] as on inhaler 00 (six) Medical hours as Branch needed for Wheezing or Shortness of Breath. docusate 2-0 Yes [id number] 100mg Take 1 U nivers 100 mg 2-21 capsule by ity of capsule 00:00: mouth 2 [place] (two) Medical times Branch daily. busPIRone 5 2021-0 Yes [id number] 5mg Take 1 Univers mg tablet 2-21 tablet by ity o f 00:00: mouth 2 [place] (two) Medical times Branch daily. chlorhexidi 2021-0 Yes [id number] 15mL Swish and Univers ne 0.12 % 2-21 spit out ity of mouthwash 00:00: 15 mL 2 [place] 00 (two) Medical times Branch daily. albuterol 2021-0 Yes [id number] 2{puff} Inhale 2 Univers 90 2-21 Puffs ity of mcg/actuati 00:00: every 6 [place] as on inhaler 00 (six) Medical hours as Branch needed for Wheezing or Shortness of Breath. docusate 2021-0 2021- No [id number] 100mg Take 1 Univers 100 mg 2-21 04-04 capsule by ity of capsule 00:00: 00:00 mouth 2 [place] 00 :00 (two) Medical times Branch daily. busPIRone 5 2021-0 2022- No [id number] 5mg Take 1 Univers mg tablet 2-21 04-04 tablet by ity of 00:00: 00:00 mouth 2 [place] 00 :00 (two) Medical times Branch daily. chlorhexidi 2021-0 2022- No [id number] 15mL Swish and Univers ne 0.12 % 2-21 04-04 spit out ity o f mouthwash 00:00: 00:00 15 mL 2 [place] 00 :[place] (two) Medical times Branch daily. albuterol 2021-0 2022- No [id number] 2{puff} Inhale 2 Univers 90 2-21 04-04 Puffs ity of mcg/actuati 00:00: 00:00 every 6 [place] on inhaler 00 :00 (six) Medical hours as Branch needed for Wheezing or Shortness of Breath. predniSONE 2021- No [id number] 40mg Take 2 Univers 20 mg 10-24-24 tablets by ity of tablet 00:00: 04:59 mouth [place] 00 :00 daily for Medical 30 days. Branch predniSONE 2021-2021- No [id number] 40mg Take 2 Univers 20 mg 10-24-11 tablets by ity of tablet 00:00: 00:00 mouth [place] 00 :00 daily. Medical Branch acetaminoph 2021- No [id number] 1{tbl} Take 1 U nivers en-codeine 10-24 tablet by ity of 300-30 mg 00:00: 05:59 mouth [place] tablet 00 :00 every 4 Medical (four) Branch hours as needed for Pain (scale 4-6) for up to 5 days. Indication s: acute pain acetaminoph 2021- No [id number] 1{tbl} Take 1 U nivers en-codeine 10-24 tablet by ity of 300-30 mg 00:00: 05:59 mouth [place] tablet 00 :00 every 4 Medical (four) Branch hours as needed for Pain (scale 4-6) for up to 5 days. Indication s: acute pain acetaminoph 2021- No [id number] 1{tbl} Take 1 U nivers en-codeine 10-24 tablet by ity of 300-30 mg 00:00: 05:59 mouth [place] tablet 00 :00 every 4 Medical (four) Branch hours as needed for Pain (scale 4-6) for up to 5 days. Indication s: acute pain busPIRone 5 2021- No [id number] 5mg Take 1 Univers mg tablet 10-24 tablet by ity of 00:00: 00:00 mouth 2 [place] 00 :00 (two) Medical times Branch daily for 30 days. chlorhexidi 2021- No [id number] 15mL Swish and Univers ne 0.12 % 10-24 spit out ity o f mouthwash 00:00: 00:00 15 mL 2 [place] 00 :[place] (two) Medical times Branch daily for 7 days. albuterol 2021- No [id number] 2{puff} Inhale 2 Univers 90 10-24- Puffs ity of mcg/actuati 00:00: 00:00 every 6 [place] on inhaler 00 :00 (six) Medical hours as Branch needed for Wheezing or Shortness of Breath. predniSONE 2021- No [id number] 40mg Take 2 Univers 20 mg 10-24- tablets by ity of tablet 00:00: 00:00 mouth [place] 00 :00 daily for Medical 30 days. Branch busPIRone 5 2021- No [id number] 5mg Take 1 Univers mg tablet 10-24- tablet by ity of 00:00: 00:00 mouth 2 [place] 00 :00 (two) Medical times Branch daily for 30 days. chlorhexidi 2021- No [id number] 15mL Swish and Univers ne 0.12 % 10-24 spit out ity o f mouthwash 00:00: 00:00 15 mL 2 [place] 00 :[place] (two) Medical times Branch daily for 7 days. phenoL Yes 1{spray 1 [place], Univ ers (SORE 2-20 } Oral, PRN, ity of THROAT 19:03: Starting [place] (PHENOL)) 59 on [facility] 1.4 % spray 10/23/21 at Br anch bottle 1 1303, [place] Until Discontinu ed, Routine, Sore throat phenoL Yes 1{spray 1 [place], Univ ers (SORE 2-20 } Oral, PRN, ity of THROAT 19:03: Starting [place] (PHENOL)) 59 on [facility] 1.4 % spray 10/23/21 at Br anch bottle 1 1303, [place] Until Discontinu ed, Routine, Sore throat zolpidem 2021- No 5mg 5 mg, Univers (AMBIEN) 10-23 Oral, ity of tablet 5 mg 04:00: 03:54 ONCE, 1 [place] 00 :00 dose, On Medical Sat Branch 10/22/21 at 2200, Routine methylpredn Yes 125mg 125 mg, Un guillermina isolone sod 10-22 Intravenou it y of succ 20:00: s, Q8H, [place] (SOLU-MEDRO 00 First dose Me dical L) (after Branch injection last 125 mg modificati on) on [facility] 10/22/21 at 1400, Until Discontinu ed, Routine methylpredn 2022-0 Yes 125mg 125 mg, Un guillermina isolone sod 2-19 Intravenou it y of succ 20:00: s, Q8H, [place] (SOLU-MEDRO 00 First dose Me dical L) (after Branch injection last 125 mg modificati on) on [facility] 10/22/21 at 1400, Until Discontinu ed, Routine hydroCHLORO 2022-0 Yes 12.5mg 12.5 mg, Univers thiazide 2-19 Oral, ity of (ESIDRIX) 15:30: DAILY, [place] capsule 00 First dose Medica l 12.[address] [facility] 10/22/21 at 0930, Until Discontinu ed, Routine amLODIPine 2022-0 Yes 10mg 10 mg, Unive rs (NORVASC) 2-19 Oral, ity of tablet 10 15:30: DAILY, [place] mg 00 First dose Medical on [facility] 10/22/21 at 0930, Until Discontinu ed, Routine hydroCHLORO 2022-0 Yes 12.5mg 12.5 mg, Univers thiazide 2-19 Oral, ity of (ESIDRIX) 15:30: DAILY, [place] capsule 00 First dose Medica l 12.5 mg on [facility] Branch 10/22/21 at 0930, Until Discontinu ed, Routine amLODIPine 2022-0 Yes 10mg 10 mg, Unive rs (NORVASC) 2-19 Oral, ity of tablet 10 15:30: DAILY, [place] mg 00 First dose Medical on [facility] 10/22/21 at 0930, Until Discontinu ed, Routine acetaminoph 2022-0 Yes 650mg 650 mg, Un guillermina en 2-19 Oral, ity of (TYLENOL) 09:54: Q6HPRN, [place] tablet 650 49 Starting Medic al mg on [facility] 10/22/21 at 0354, Until Discontinu ed, Routine, Pain (scale 1-3) acetaminoph 2022-0 Yes 650mg 650 mg, Un guillermina en 2-19 Oral, ity of (TYLENOL) 09:54: Q6HPRN, [place] tablet 650 49 Starting Medic al mg on Sat Branch 10/22/21 at 0354, Until Discontinu ed, Routine, Pain (scale 1-3) chlorhexidi 0 Yes 15mL 15 mL, [facility] ers ne - Oral ity of (PERIDEX) 02:00: ([place] 0.12 % 00 Spit Out), Medical mouthwash BID, First Bran ch 15 mL dose on Sun10/21/21 at 1999, Until Discontinu ed, Routine chlorhexidi 0 Yes 15mL 15 mL, [facility] ers ne - Oral ity of (PERIDEX) [...] mcg/kg/min ity of 20:41: 15:22 ?99.8 kg [place] 59 :55 (2.994-29. Medical 94 mL/hr, Branch [...] No 5mg 5 mg, Slow Univers (LOPRESSOR) 10-21-18 IV Push, ity of injection 5 19:00: 19:00 ONCE, 1 [place] mg 00 :00 dose, On Medical Fri Branch 10/21/21 at 1300, Routine EPINEPHrine 2021-0 Yes PRN, Univer s 1:1,000 (1 10-21 Starting ity o f mg/mL) 18:01: on Sun [place] (ADRENALIN) 10/21/21 at Nm dical injection 1201, Branch Until Discontinu ed, Routine, Intra-op EPINEPHrine 2021-0 Yes PRN, Univer s 1:1,000 (1 10-21 Starting ity o f mg/mL) 18:01: on Sun [place] (ADRENALIN) 10/21/21 at Nm dical injection 1201, Branch Until Discontinu ed, [...] 2-18 Starting ity of injection 17:01: on Sun10/21/21 at [facility] 1101, Branch Until Discontinu ed, Routine, Intra-op NaCl 0.9% 2021-0 Yes PRN, Univers (NS) 2-18 Starting ity of injection 17:01: on Sun10/21/21 at [facility] 1101, Branch Until Discontinu ed, Routine, Intra-op morpHINE 2021-0 Yes 4mg 4 mg, Slow Uni vers injection 4 2-17 IV Push, ity of mg 23:22: Q4HPRN, [place] 52 Starting Medical on [place] Branch 10/20/21 at 1722, Until Discontinu ed, Routine, Pain (scale 7-10) morpHINE 0 Yes 4mg 4 mg, Slow Uni vers injection 4 17 IV Push, ity of mg 23:22: Q4HPRN, [place] 52 Starting Medical on [place] Branch 10/20/21 at 1722, Until Discontinu ed, Routine, Pain (scale 7-10) methylpredn 2021- No 125mg 125 mg, U nivers isolone sod 10-20 Intravenou i ty of succ 20:00: 17:53 s, Q8H, [place] (SOLU-MEDRO 00 :24 First dose Me dical L) (after Branch injection last 125 mg modificati on) on [place] 10/20/21 at 1400, Until Discontinu ed, Routine furosemide 2021- No 40mg 40 mg, Univ ers (LASIX) 10-20 Slow IV ity of injection 18:00: 18:19 Push, [place] 40 mg 00 :00 ONCE, 1 Medical dose, On Branch [facility] 10/20/21 at 1200, Routine pantoprazol 0 Yes 40mg 40 mg, Univ ers e 2-17 Oral, ity of (PROTONIX) 16:45: DAILY, [place] EC tablet 00 First dose Medi dayna 40 mg on [facility] Branch 10/20/21 at 1045, Until Discontinu ed, Routine pantoprazol 0 Yes 40mg 40 mg, Univ ers e 2-17 Oral, ity of (PROTONIX) 16:45: DAILY, [place] EC tablet 00 First dose Medi dayna 40 mg on [facility] Branch 10/20/21 at 1045, Until Discontinu ed, Routine alum-mag 0 Yes 30mL 30 mL, Univers hydroxide-s 2-17 Oral, ity of imeth 16:37: [place] (MAALOX 49 Starting Medical PLUS / on [facility] Branch MAG-AL 10/20/21 at PLUS) 1037, 200-200-20 Until mg/5 mL Discontinu suspension ed, 30 mL Routine, Indigestio n alum-mag 0 Yes 30mL 30 mL, Univers hydroxide-s 2-17 Oral, ity of imeth 16:37: [place] (MAALOX 49 Starting Medical PLUS / on [facility] Branch MAG-AL 10/20/21 at PLUS) 1037, 200-200-20 Until mg/5 mL Discontinu suspension ed, 30 mL Routine, Indigestio n acetaminoph 2021- No 650mg 650 mg, U nivers en 10-20 Oral, ity of (TYLENOL) 16:16: 17:01 Q6HPRN, [place] tablet 650 26 :51 Starting Medic al mg on [facility] 10/20/21 at 1016, Until Sun10/21/21 at 1101, Routine, Pain (scale 1-3) polyethylen 0 Yes 17g 17 g, Unive rs e glycol 2-17 Oral, ity of 3350 powder 15:00: DAILY, [place] 17 g 00 First dose Medical on [facility] 10/20/21 at 0900, Until Discontinu ed, Routine polyethylen 0 Yes 17g 17 g, Unive rs e glycol 2-17 Oral, ity of 3350 powder 15:00: DAILY, [place] 17 g 00 First dose Medical on [facility] 10/20/21 at 0900, Until Discontinu ed, Routine docusate 2021-0 Yes 100mg 100 mg, Unive rs (COLACE) 2-17 Oral, BID, ity o f capsule 100 02:00: First dose [place] mg 00 on [facility] 10/19/21 at Branch 2000, Until Discontinu ed, Routine docusate 2021-0 Yes 100mg 100 mg, Unive rs (COLACE) 2-17 Oral, BID, ity o f capsule 100 02:00: First dose [place] mg 00 on [facility] 10/19/21 at Branch 1999, Until Discontinu ed, Routine hydralAZINE 2021-0 Yes 10mg 10 mg, Univ ers (APRESOLINE 2-16 Slow IV ity o f ) injection 11:35: Push, [place] 10 mg 36 Q4HPRN, Medical Starting Branch on Sun10/19/21 at 0535, Until Discontinu ed, Routine, systolic BP >180
In dication: Hypertensi ve Emergency hydralAZINE 2021-0 Yes 10mg 10 mg, Univ ers (APRESOLINE 2-16 Slow IV ity o f ) injection 11:35: Push, [place] 10 mg 36 Q4HPRN, Medical Starting Branch on Sun10/19/21 at 0535, Until Discontinu ed, Routine, systolic BP >180
In dication: Hypertensi ve Emergency haloperidol No 5mg 5 mg, Slow Univers [...] ity of (DUONEB) 14:00: , Q4H, [place] 0.5 mg-3 00 First dose Medic al mg(2.5 mg on Sun)/3 mL 10/17/21 at nebulizer 0800, solution 3 Until mL Discontinu ed, Routine ipratropium 2021-0 Yes 3mL 3 mL, Unive rs -albuteroL 10-17 Inhalation ity of (DUONEB) 14:00: , Q4H, [place] 0.5 mg-3 00 First dose Medic al mg(2.5 mg on Sun)/3 mL 10/17/21 at nebulizer 0800, solution 3 Until mL Discontinu ed, Routine lidocaine 2021-0 2021- No 5mL 5 mL, Univer s 1% (PF) 10-17 Subcutaneo ity o f (XYLOCAINE) 13:45: 13:45 , ONCE, [place] injection 5 00 :00 1 dose, On [...] No 5mg 5 mg, Slow Univers lactate 10-1714 IV [place], ity of (HALDOL) 04:00: 03:03 ONCE, 1 [place] injection 5 00 :00 dose, On Medi dayna mg [place] Branch 10/16/21 at 2200, Routine busPIRone 0 Yes 5mg 5 mg, Univers (BUSPAR) 2-14 Oral, BID, ity o f tablet 5 mg 02:00: First dose on [facility] 10/16/21 at [place] 1999, Until Discontinu ed, Routine busPIRone 0 Yes 5mg 5 mg, Univers (BUSPAR) 2-14 Oral, BID, ity o f tablet 5 mg 02:00: First dose on [facility] 10/16/21 at [place] 1999, Until Discontinu ed, Routine methylpredn 2021- No 60mg 60 mg, Uni vers isolone sod 10-16 Slow IV ity of succ 23:00: 17:25 Push, Q8H, [place] (SOLU-MEDRO 00 :30 First dose Me dical L) on [facility] injection 10/16/21 at 60 mg 1700, Until Discontinu ed, Routine HYDROcodone 2021- No 1{tbl} 1 tablet, Univers -acetaminop 10-16 Oral, ity of hen (NORCO 19:49: 17:01 Q6HPRN, José Miguel as 5) 5-325 mg 46 :51 Starting Medi dayna tablet 1 on [facility] tablet 10/16/21 at 1349, Until Sun10/21/21 at 1101, Routine, Pain (scale 4-6) cefTRIAXone 2021- No 1000mg 1,000 mg, Univers (ROCEPHIN) 10-16 IV ity of 1,000 mg in 18:30: 18:56 Piggyback, [place] NaCl 0.9% 00 :00 Q24H ABX, Medic al (NS) 50 mL 5 doses, Branc h MINI-BAG First dose on [place] 10/16/21 at 1230, Last dose on Nicole [...] 16:47 Push, [place] 0.5 mg 49 :31 [id number], Medical Starting Branch on 10/15/21 at 1543, Until 10/17/21 at 1047, Routine, Anxiety iopamidol 2021- No [id number] 100mL 100 mL, Univers (ISOVUE 10-15 Intravenou [...] ity of 1,000 mg in 09:15: 16:12 [place], [place] NaCl 0.9% 00 :17 Q12H ABX, Medic al (NS) 50 mL First dose [facility] MINI-BAG on 10/15/21 at 0315, Until Discontinu ed, Administer over 30 Minutes, 50 mL
Reas on for Anti-Infec tive: Documented Infection< br>Documen britney Infection Site: Blood
D uration of Therapy: 7 days ipratropium Yes 3mL 3 mL, Unive rs -albuteroL 10-15 Inhalation ity of (DUONEB) 08:07: , QIDPRN, [...] Push, ity of mg 08:04: 17:33 Q4HPRN, [place] 38 :44 Starting Medical on Sat Branch [...] % 00:00: [place] ointment 00 Medical Branch [facility] SMILEY EXT AA Univers ne valerate 5-24 BID ity of 0.1 % 00:00: [place] ointment [address] [facility] [place] Yes TK 1 C PO U nivers -hydrochlor 5-24 QAM ity of othiazide 00:00: [place] 37.5-25 mg 00 Medical per capsule Branch [facility] [place] Yes TK 1 C PO U nivers -hydrochlor 5-24 QAM ity of othiazide 00:00: [place] 37.5-25 mg 00 Medical per capsule [facility] SMILEY EXT AA Univers ne valerate 5-24 BID ity of 0.1 % 00:00: [place] ointment [address] [facility] [place] Yes TK 1 C PO U nivers -hydrochlor 5-24 QAM ity of othiazide 00:00: [place] 37.5-25 mg 00 Medical per capsule Branch [facility] SMILEY EXT AA Univers ne valerate 5-24 BID ity of 0.1 % 00:00: [place] ointment [address] [facility] [place] Yes TK 1 C PO U nivers -hydrochlor 5-24 QAM ity of othiazide 00:00: [place] 37.5-25 mg 00 Medical per capsule Branch [facility] Yes SMILEY EXT AA Univers ne valerate 5-24 BID ity of 0.1 % 00:00: [place] ointment [address] [facility] [place] Yes TK 1 C PO U nivers -hydrochlor 5-24 QAM ity of othiazide 00:00: [place] 37.5-25 mg 00 Medical per capsule Branch betamethaso 2021- No SMILEY EXT AA Univers ne valerate 5-24 04-04 BID ity of 0.1 % 00:00: 00:00 [place] ointment 00 :[address] [facility] [place] 2021- No TK 1 C PO Univers -hydrochlor 5-24 04-04 QAM ity of othiazide 00:00: 00:00 [place] 37.5-25 mg 00 :00 Medical per capsule Branch DEXILANT 60 Yes TK 1 C PO U nivers mg capsule 9-28 QD ity of 00:00: Medical Branch DEXILANT 60 Yes TK 1 C PO U nivers mg capsule 05-31 QD ity of 00:00: Medical Branch DEXILANT 60 Yes TK 1 C PO U nivers mg capsule 05-31 QD ity of 00:00: Medical Branch DEXILANT 60 Yes TK 1 C PO U nivers mg capsule 05-31 QD ity of 00:00: Medical Branch DEXILANT 60 Yes TK 1 C PO U nivers mg capsule 05-31 QD ity of 00:00: Medical Branch DEXILANT 60 Yes TK 1 C PO U nivers mg capsule 05-31 QD ity of 00:00: Medical Branch DEXILANT 60 Yes TK 1 C PO U nivers mg capsule 05-31 QD ity of 00:00: Medical Branch DEXILANT 60 Yes TK 1 C PO U nivers mg capsule 05-31 QD ity of 00:00: Medical Branch DEXILANT 60 2022- No TK 1 C PO Univers mg capsule 05-31 04-04 QD ity of 00:00: 00:00 [place] 00 [...] tablet 00:00: FOR 30 Medical Branch proMETHazin 2021- No TK 1 T PO Univers e 25 mg 3-29 04-04 Q 12 H PRN ity o f tablet 00:00: 00:00 FOR 30 00 :00 Medical Branch amLODIPine Yes TK 1 T PO Un guillermina 5 mg tablet 3-21 Q NIGHTLY ity of 00:00: Medical Branch amLODIPine Yes TK 1 T PO Un guillermina 5 mg tablet 3-21 Q NIGHTLY ity of 00:00: Medical Branch amLODIPine Yes TK 1 T PO Un guillermina 5 mg tablet 3-21 Q NIGHTLY ity of 00:00: [place] [facility] amLODIPine Yes TK 1 T PO Un guillermina 5 mg tablet 3-21 Q NIGHTLY ity of 00:00: Medical Branch amLODIPine Yes TK 1 T PO Un guillermina 5 mg tablet 3-21 Q NIGHTLY ity of 00:00: Medical Branch amLODIPine Yes TK 1 T PO Un guillermina 5 mg tablet 3-21 Q NIGHTLY ity of 00:00: [place] [facility] amLODIPine Yes TK 1 T PO Un guillermina 5 mg tablet 3-21 Q NIGHTLY ity of 00:00: Medical Branch amLODIPine Yes TK 1 T PO Un guillermina 5 mg tablet 3-21 Q NIGHTLY ity of 00:00: [place] [facility] amLODIPine 2021- No TK 1 T PO U nivers 5 mg tablet 3-21 04-04 Q NIGHTLY it y of 00:00: 00:00 [place] 00 :00 Medical Branch HYDROcodone Yes 1{tbl} Take 1 Un guillermina -acetaminop 2-08 tablet by ity of hen 10-325 00:00: mouth. [place] mg tablet 00 Medical Branch HYDROcodone 2016-2021- No 1{tbl} Take 1 U nivers -acetaminop -04 04-21 tablet by it y of hen 10-325 00:00: 00:[place] mg tablet 00 :00 [place] HYDROcodone 2021- No 1{tbl} Take 1 U nivers -acetaminop 2-04 04- tablet by it y of hen 10-325 00:00: 00:[place] tablet 00 :00 [place] betamethaso 2013- Yes [id number] Apply to Univers ne 2-13 area(s) ity of dipropionat 00:00: two (2) José Miguel as e 00 times Medical (DIPROLENE) daily. Branch 0.05 % cream betamethaso 2013- Yes [id number] Apply to Univers ne 2-13 area(s) ity of dipropionat 00:00: two (2) [place] as e 00 times Medical (DIPROLENE) daily. Branch 0.05 % cream betamethaso 2013- Yes [id number] Apply to Univers ne 2-13 area(s) ity of dipropionat 00:00: two (2) [place] as e 00 times Medical (DIPROLENE) daily. Branch 0.05 % cream betamethaso 2013-0 Yes [id number] Apply to Univers ne 2-13 area(s) ity of dipropionat 00:00: two (2) [place] as e 00 times Medical (DIPROLENE) daily. Branch 0.05 % cream betamethaso 2013-0 Yes [id number] Apply to Univers ne 2-13 area(s) ity of dipropionat 00:00: two (2) [place] as e 00 times Medical (DIPROLENE) daily. Branch 0.05 % cream betamethaso 2013-0 Yes [id number] Apply to Univers ne 2-13 area(s) ity of dipropionat 00:00: two (2) [place] as e 00 times Medical (DIPROLENE) daily. Branch 0.05 % cream betamethaso 2013-0 Yes [id number] Apply to Univers ne 2-13 area(s) ity of dipropionat 00:00: two (2) [place] as e 00 times Medical (DIPROLENE) daily. Branch 0.05 % cream betamethaso Yes [id number] Apply to [facility] 10-16 area(s) ity of dipropionat 00:00: two (2) [place] as e 00 times Medical (DIPROLENE) daily. Branch 0.05 % cream betamethaso 2- No [id number] Apply to [facility] 10-16 04-04 area(s) ity of dipropionat 00:00: 00:00 [place] 00 :00 times Medical (DIPROLENE) daily. Branch 0.05 % cream Immunizations Ordered Filled Immunization Date Status Comments [facility] e Immunization Name Name SARS-COV-2 COVID-19 2021-03-03 Completed Unive rsity of MODERNA VACCINE [facility]-19 2021-03-03 Completed Unive rsity of MODERNA VACCINE 00:00:00 [facility] SARS-COV[facility]2 COVID-19 2021-03-03 Completed Unive rsity of MODERNA VACCINE 00:00:00 [facility] SARS-COV-2 COVID-19 2021-03-03 Completed Unive rsity of MODERNA VACCINE 00:00:00 [facility] ical Branch SARS-COV-2 COVID-19 2021-03-03 Completed Unive rsity of MODERNA VACCINE 00:00:00 [facility]2 COVID-19 2021-03-03 Completed Unive rsity of MODERNA VACCINE 00:00:00 [facility] SARS-COV-2 COVID-19 2021-03-03 Completed Unive rsity of MODERNA VACCINE 00:00:00 [facility] ical Branch SARS-COV-2 COVID-19 2021-03-03 Completed Unive rsity of MODERNA VACCINE 00:00:00 [facility] ical Branch SARS-COV-2 COVID-19 2021-03-03 Completed Unive rsity of MODERNA VACCINE 00:00:00 [facility] SARS-COV-2 COVID-19 2021-03-03 Completed Unive rsity of MODERNA VACCINE 00:00:00 [facility] SARS-COV-2 COVID-19 2021-03-03 Completed Unive rsity [...] Unive rsity of MODERNA VACCINE 00:00:00 [facility] Branch SARS-COV-2 COVID-19 2021-02-01 Completed Unive rsity of MODERNA VACCINE 00:00:00 [facility] Branch SARS-COV-2 COVID-19 2021-02-01 Completed Unive rsity of MODERNA VACCINE 00:00:00 [facility] SARS-COV-2 COVID-19 2021-02-01 Completed Unive rsity of MODERNA VACCINE 00:00:00 [facility] Branch SARS-COV-2 COVID-19 2021-02-01 Completed Unive rsity of MODERNA VACCINE 00:00:00 [facility] SARS-COV-2 COVID-19 2021-02-01 Completed Unive rsity of MODERNA VACCINE 00:00:00 [facility] SARS-COV-2 COVID-19 2021-02-01 Completed Unive rsity of MODERNA VACCINE 00:00:00 [facility] SARS-COV-2 COVID-19 2021-02-01 Completed Unive rsity of MODERNA VACCINE 00:00:00 [facility] SARS-COV-2 COVID-19 2021-02-01 Completed Unive rsity of MODERNA VACCINE 00:00:00 [facility] SARS-COV-2 COVID-19 2021-02-01 Completed Unive rsity of MODERNA VACCINE 00:00:00 [facility] SARS-COV-2 COVID-19 2021-02-01 Completed Unive rsity of MODERNA VACCINE 00:00:00 [facility] Influenza Virus 2007-07-02 Completed Universit y of Vaccine 00:00:00 [facility] Influenza Virus 2007-07-02 Completed Universit y of Vaccine 00:00:00 [facility] Influenza Virus 2007-07-02 Completed Universit y of Vaccine 00:00:00 [facility] Influenza Virus 2007-07-02 Completed Universit y of Vaccine 00:00:00 [facility] Influenza Virus 2007-07-02 Completed Universit y of Vaccine 00:00:00 [facility] Influenza Virus 2007-07-02 Completed Universit y of Vaccine 00:00:00 [facility] Influenza Virus 2007-07-02 Completed Universit y of Vaccine 00:00:00 [facility] Influenza Virus 2007-07-02 Completed Universit y of Vaccine 00:00:00 [facility] Influenza Virus 2007-07-02 Completed Universit y of Vaccine 00:00:00 [facility] Influenza Virus 2007-07-02 Completed Universit y of Vaccine 00:00:00 [facility] Influenza Virus 2007-07-02 Completed Universit y of Vaccine 00:00:00 [facility] Influenza Virus 2007-07-02 Completed Universit y of Vaccine 00:00:00 [facility] Influenza Virus 2007-07-02 Completed Universit y of Vaccine 00:00:00 [facility] Influenza Virus 2007-07-02 Completed Universit y of Vaccine 00:00:00 [facility] Influenza Virus 2007-07-02 Completed Universit y of Vaccine 00:00:00 [facility] Influenza Virus 2007-07-02 Completed Universit y of Vaccine 00:00:00 [facility] Influenza Virus 2007-07-02 Completed Universit y of Vaccine 00:00:00 [facility] Influenza Virus 2007-07-02 Completed Universit y of Vaccine 00:00:00 [facility] Influenza Virus 2007-07-02 Completed Universit y of Vaccine 00:00:00 [facility] Vital Signs Vital Name Observation Time Observation Value Comments Source Systolic blood 2022-02-26 13:59:00 136 mm[Hg] Univer sity of pressure [facility] Diastolic blood 2022-02-26 13:59:00 101 mm[Hg] Unive rsity of [facility] Heart rate 2022-02-26 13:59:00 79 /min [facility] Body temperature 2022-02-26 13:59:00 36.78 Carleen [facility] ersity [facility] Respiratory rate 2022-02-26 13:59:00 20 /min [facility] in 2022-02-26 13:59:00 100 /min [facility] Arterial blood by [facility] Pulse oximetry [place] Body height 2022-02-26 04:37:00 160 cm [facility] Body weight 2022-02-26 04:37:00 [facility]08 [facility] 2022-02-26 04:37:00 35.96 kg/m2 [facility] Systolic blood 2022-02-23 06:00:00 115 mm[Hg] Univer sity of pressure [place] [facility] Diastolic blood 2022-02-23 06:00:00 83 mm[Hg] Unive rsity of pressure [place] [facility] Heart rate 2022-02-23 06:00:00 62 /min Universi ty of [place] [facility] Respiratory rate 2022-02-23 06:00:00 18 /min Univ ersity of [place] [facility] Oxygen saturation in 2022-02-23 06:00:00 97 /min University of Arterial blood by [place] [employer] dayna Pulse oximetry Branch Body temperature 2022-02-23 02:45:00 37.83 Carleen Univ ersity of [place] [facility] Body height 2022-02-23 02:45:00 160 cm Universi ty of [place] [facility] Body weight 2022-02-23 02:45:00 92.08 kg Universi ty of [place] [facility] BMI 2022-02-23 02:45:00 35.96 kg/m2 Universi ty of [place] [facility] Systolic blood 2022-01-29 21:54:12 118 mm[Hg] Univer sity of pressure [place] [facility] Diastolic blood 2022-01-29 21:54:12 74 mm[Hg] Unive rsity of pressure [place] [facility] Heart rate 2022-01-29 21:54:12 98 /min Universi ty of [place] [facility] Respiratory rate 2022-01-29 21:54:12 24 /min Univ ersity of [place] [facility] Oxygen saturation in 2022-01-29 21:54:12 98 /min University of Arterial blood by [place] [employer] dayna Pulse oximetry Branch Body temperature 2022-01-29 18:53:00 37 Carleen Univ ersity of [place] [facility] Body height 2022-01-29 18:53:00 160 cm Universi ty of [place] [facility] Body weight 2022-01-29 18:53:00 90.719 kg Universi ty of [place] [facility] BMI 2022-01-29 18:53:00 35.43 kg/m2 Universi ty of [place] [facility] Systolic blood 2022-01-29 15:01:00 138 mm[Hg] Univer sity of pressure [place] [facility] Diastolic blood 2022-01-29 15:01:00 82 mm[Hg] Unive rsity of pressure [place] [facility] Heart rate 2022-01-29 15:01:00 88 /min Universi ty of [place] [facility] Respiratory rate 2022-01-29 15:01:00 15 /min Univ ersity of [place] [facility] Oxygen saturation in 2022-01-29 15:01:00 96 /min University of Arterial blood by [facility] dayna Pulse oximetry Branch Body temperature 2022-01-29 12:58:00 36.61 Carleen Univ ersity of [place] [facility] Body weight 2022-01-29 12:58:00 81.647 kg Universi ty [facility] [place] [facility] BMI 2022-01-29 12:58:00 31.89 kg/m2 [facility]i [facility] [place] [facility] Height 2022-01-05 08:28:00 160.02 CM Weight 2022-01-05 08:28:00 81.64 KG Systolic blood 2022-01-03 04:43:12 152 mm[Hg] Univer sity of pressure [place] [facility] Diastolic blood 2022-01-03 04:43:12 112 mm[Hg] Unive rsity of pressure [place] [facility] Body temperature 2022-01-03 04:43:12 37.28 Carleen Univ ersity of [place] [facility] Respiratory rate 2022-01-03 04:43:12 17 /min Univ ersity of [place] [facility] Heart rate 2022-01-03 04:42:33 88 /min Universi ty [facility] [place] [facility] Oxygen saturation in 2022-01-03 04:42:33 97 /min University of Arterial blood by [facility] Pulse oximetry Branch Body height 2022-01-03 02:36:00 160 cm Universi ty [facility] [place] [facility] Body weight 2022-01-03 02:36:00 81.647 kg Universi ty [facility] [place] [facility] BMI 2022-01-03 02:36:00 31.89 kg/m2 Universi ty of [place] [facility] Body temperature 2021-12-07 13:30:00 37.17 Carleen Univ ersity of [place] [facility] Respiratory rate 2021-12-07 13:30:00 23 /min Univ ersity of [place] [facility] Oxygen saturation in 2021-12-07 13:14:00 97 /min University of Arterial blood by [facility] dayna Pulse oximetry Branch Systolic blood 2021-12-07 09:00:00 157 mm[Hg] Univer sity of pressure [place] [facility] Diastolic blood 2021-12-07 09:00:00 99 mm[Hg] Unive rsity of pressure [place] [facility] Heart rate 2021-12-07 09:00:00 82 /min Universi ty of [place] [facility] [place] Body weight 2021-12-07 08:10:00 95.709 kg Universi ty of [place] [facility] BMI 2021-12-07 08:10:00 37.38 kg/m2 Universi ty [facility] [place] [facility] Body height 2021-12-06 06:30:00 160 cm Universi ty of [place] [facility] Systolic blood 2021-12-05 09:10:00 126 mm[Hg] Univer sity of pressure [place] [facility] Diastolic blood 2021-12-05 09:10:00 71 mm[Hg] Unive rsity of pressure [place] [facility] Heart rate 2021-12-05 09:10:00 85 /min Universi ty of [place] [facility] [place] Body temperature 2021-12-05 09:10:00 36.83 Carleen Univ ersity of [place] [facility] Respiratory rate 2021-12-05 09:10:00 18 /min Univ ersity of [place] [facility] Oxygen saturation in 2021-12-05 09:10:00 96 /min University of Arterial blood by [facility] Pulse oximetry Branch Body height 2021-12-03 23:16:00 160 cm Universi ty of [place] [facility] Body weight 2021-12-03 23:16:00 81.647 kg Universi ty of [place] [facility] BMI 2021-12-03 23:16:00 31.89 kg/m2 Universi ty [facility] [place] [facility] Systolic blood 2021-11-11 18:12:00 152 mm[Hg] Univer sity of pressure [place] [facility] Diastolic blood 2021-11-11 18:12:00 93 mm[Hg] Unive rsity of pressure [place] [facility] Heart rate 2021-11-11 18:12:00 108 /min Universi ty of [facility] Body temperature 2021-11-11 18:12:00 37.06 Carleen Univ ersity of [place] [facility] Respiratory rate 2021-11-11 18:12:00 20 /min Univ ersity of [place] [facility] Oxygen saturation in 2021-11-11 18:12:00 95 /min University of Arterial blood by [facility] Pulse oximetry Branch Body height 2021-11-10 17:22:00 160 cm Universi ty of [place] [facility] Body weight 2021-11-10 17:22:00 91 kg Universi ty of [place] [facility] BMI 2021-11-10 17:22:00 35.54 kg/m2 Universi ty of [place] [facility] Systolic blood 2021-10-24 17:05:00 143 mm[Hg] Univer sity of pressure [place] [facility] Diastolic blood 2021-10-24 17:05:00 90 mm[Hg] Unive rsity of pressure [place] [facility] Heart rate 2021-10-24 17:05:00 103 /min Universi ty of [place] [facility] Body temperature 2021-10-24 17:05:00 36.22 Carleen Univ ersity of [place] [facility] Respiratory rate 2021-10-24 17:05:00 18 /min Univ ersity of [place] [facility] Oxygen saturation in 2021-10-24 17:05:00 95 /min University of Arterial blood by [facility] Pulse oximetry Branch Body weight 2021-10-22 10:08:00 71.215 kg bed scale Universi ty of [place] [facility] BMI 2021-10-22 10:08:00 28.72 kg/m2 Universi ty [facility] [place] [facility] Body height 2021-10-17 14:00:00 157.5 cm Universi ty [facility] [place] [facility] Systolic blood 2021-10-21 15:36:00 129 mm[Hg] Univer sity of pressure [place] [facility] Diastolic blood 2021-10-21 15:36:00 82 mm[Hg] Unive rsity of pressure [place] [facility] Heart rate 2021-10-21 15:36:00 100 /min Universi ty of [place] [facility] Respiratory rate 2021-10-21 15:36:00 20 /min Univ ersity of [place] [facility] Oxygen saturation in 2021-10-21 15:36:00 100 /min University of Arterial blood by [facility] Pulse oximetry Branch Body temperature 2021-10-21 13:07:00 36.83 Carleen Univ ersity of [place] [facility] Body height 2021-10-17 14:00:00 157.5 cm Universi ty [facility] [place] [facility] Body weight 2021-10-17 14:00:00 99.791 kg [facility] BMI 2021-10-17 14:00:00 28.72 kg/m2 [facility] Procedures Procedure Date / Time Performing Clinician Source Performed ASSIGNMENT OF BENEFITS 2022-03-14 20:14:00 Doctor Unassigned, Un [facility] Chualar [facility] THORAX WO CONTRAST 2022-02-26 13:20:05 [facility] BASIC METABOLIC PANEL 2022-02-26 09:29:00 [facility] (NA, K, CL, CO2, GLUCOSE, Medica l Branch BUN, CREATININE, CA) CBC WITH DIFF 2022-02-26 09:29:00 [facility] EKG-12 LEAD 2022-02-26 06:20:06 Sobeida Samson [facility] LIPASE 2022-02-26 03:28:00 Sobeida Samson [facility] TROPONIN I 2022-02-26 03:28:00 Sobeida Samson [facility] COMP. METABOLIC PANEL 2022-02-26 03:28:00 Sobeida Samson [facility] ([id number]) [facility] CBC WITH DIFF 2022-02-26 03:28:00 Sobeida Samson [facility] N-TERMINAL PRO-BNP 2022-02-26 03:28:00 Sobeida Samson [facility] XR CHEST 1 VW 2022-02-26 01:52:00 Sobeida Samson [facility] COVID-19 (ID NOW RAPID 2022-02-26 01:03:00 Sobeida Samson Un [facility] TESTING) [facility] CT HEAD WO CONTRAST 2022-02-25 23:59:38 Sobeida Samson [facility] CONSENT/REFUSAL FOR 2022-02-25 22:55:28 Doctor Unassigned, [facility] DIAGNOSIS AND TREATMENT Chualar [facility] EKG-12 LEAD 2022-02-23 06:15:35 Bro Ann [facility] TROPONIN I 2022-02-23 05:20:00 Bro Ann [facility] XR CHEST 2 VW 2022-02-23 03:47:00 [facility]-02-23 03:26:00 Bro Ann [facility] TROPONIN I 2022-02-23 03:12:00 Bro Ann [facility] COMP. METABOLIC PANEL 2022-02-23 03:12:00 Bro Ann [facility] ([id number]) [facility] CBC WITH DIFF 2022-02-23 03:12[facility]B 2022-02-23 03:12:00 Bro Ann [facility] N-TERMINAL PRO-BNP 2022-02-23 03:12:00 Bro Ann [facility] COVID-19 (ID NOW RAPID 2022-02-23 03:12:00 Bro Ann [facility] TESTING) [facility] CONSENT/REFUSAL FOR 2022-02-23 02:38:26 Doctor Unassigned, [facility] DIAGNOSIS AND TREATMENT [place] [facility] XR LUMBAR SPINE 2 VW 2022-01-29 20:25:58 Jaden Rene [facility] CONSENT/REFUSAL FOR 2022-01-29 18:42:46 Doctor Unassigned, [facility] DIAGNOSIS AND TREATMENT [facility] XR CHEST 1 VW 2022-01-29 13:43:00 Mai Del Rosario [facility] TROPONIN I 2022-01-29 13:34:00 Mai Del Rosario [facility] COMP. METABOLIC PANEL 2022-01-29 13:34:00 Mai Del Rosario [facility] ([id number]) [facility] CBC WITH DIFF 2022-01-29 13:34:00 Mai Del Rosario [facility] N-TERMINAL PRO-BNP 2022-01-29 13:34:00 Mai Del Rosario [facility] AC PANEL 21 + LACTIC ACID 2022-01-29 13:34:00 Mai Del Rosario [facility] CONSENT/REFUSAL FOR 2022-01-29 12:47:51 Doctor Unassigned, [facility] DIAGNOSIS AND TREATMENT [place] [facility] INTRO ANES AGT PERIPH 2022-01-05 00:00:00 Oakezran d Medical NRV\\T\\PLEXI PC Center INTRO AIF PERIPH NRV 2022-01-05 00:00:00 Victor Manuel [facility] PLEXI PERQ Center XR CHEST 1 VW 2022-01-03 04:29:34 Jacklyn Guillen [facility] CONSENT/REFUSAL FOR 2022-01-03 02:30:38 Doctor Unassigned, [facility] DIAGNOSIS AND TREATMENT [place] [facility] MAGNESIUM 2021-12-07 09:01:00 [facility] COMP. METABOLIC PANEL 2021-12-07 09:01:00 Jorge L Cordova [facility] ([id number]) [facility] CBC WITH DIFF 2021-12-07 09:01:00 David [facility]azo [facility] N-TERMINAL PRO-BNP 2021-12-07 09:01:00 Jorge L Cordova [facility] URINALYSIS 2021-12-06 16:46:00 [facility] URINE CULTURE 2021-12-06 16:46:00 Jorge L Cordova [facility] PHOSPHORUS 2021-12-06 10:11:00 Jorge L Cordova [facility] MAGNESIUM 2021-12-06 10:11:00 Jorge L Cordova [facility] VITAMIN B12, LEVEL 2021-12-06 10:11:00 Jorge L Cordova [facility] C-REACTIVE PROTEIN 2021-12-06 10:11:00 Mary ady [facility] TROPONIN I 2021-12-06 10:11:00 Jorge L Cordova [facility] FREE T4 2021-12-06 10:11:00 Mary [facility] COMP. METABOLIC PANEL 2021-12-06 10:11:00 Jorge L Cordova [facility] ([id number]) [facility] SEDIMENTATION RATE 2021-12-06 10:11:00 Mary ady [facility] CBC WITH DIFF 2021-12-06 10:11:00 [facility] N-TERMINAL PRO-BNP 2021-12-06 10:11:00 Mary ady [facility] VITAMIN D, 25-OH 2021-12-06 10:11:00 Mary [facility] FREE T3 2021-12-06 10:11:00 [facility] PROCALCITONIN 2021-12-06 10:11:00 [facility] AC VBG + LACTIC ACID 2021-12-06 10:10:00 Mary ady [facility] COVID-19 (ID NOW RAPID 2021-12-06 00:09:00 Christos Tovar [facility] TESTING) Medical Branch LAB ONLY COVID 2021-12-06 00:09:00 Christos Tovar [facility] URIC ACID 2021-12-06 00:07:00 Mary ad[facility] FERRITIN SERUM 2021-12-06 00:07:00 [facility] TROPONIN I 2021-12-06 00:07:00 Christos Tovar [facility] THYROID STIMULATING 2021-12-06 00:07:00 Mary ady [facility] HORMONE [facility] COMP. METABOLIC PANEL 2021-12-06 00:07:00 Christos Tovar [facility] ([id number]) Medical Branch LIPID PANEL ([id number])(TOTAL 2021-12-06 00:07:00 Jorge L Cordova [facility] CHOLESTEROL, [facility] TRIGLYCERIDES, HDL) IRON PANEL 2021-12-06 00:07:00 Mary ady [facility] DIFF CONSULT 2021-12-06 00:07:00 Mary ady [facility] CBC WITH DIFF 2021-12-06 00:07:00 Christos Tovar [facility] GLYCOSYLATED HEMOGLOBIN 2021-12-06 00:07:00 Jorge L Cordova [facility] (A1C) [facility] PROTHROMBIN TIME / INR 2021-12-06 00:07:00 Christos Tovar [facility] ACTIVATED PARTIAL 2021-12-06 00:07:00 Christos Tovar [facility] THRMPLAS ANTONINO [facility] N-TERMINAL PRO-BNP 2021-12-06 00:07:00 Christos Tovar [facility] HB ECG ROUTINE & RHYTHM 2021-12-06 00:05:16 Christos Tovar [facility] XR CHEST 1 VW 2021-12-05 23:50:38 Guy [facility] ASSIGNMENT OF BENEFITS 2021-12-05 23:47:08 Doctor Unassigned, [facility] [place] NOTICE OF PRIVACY 2021-12-05 22:03:59 Doctor Unassigned, [facility] PRACTICES [facility] CONSENT/REFUSAL FOR 2021-12-05 22:03:42 [facility] DIAGNOSIS AND TREATMENT [facility] CT ANGIOGRAM CHEST 2021-12-04 20:47:15 Michel [facility] LACTIC ACID WHOLE BLOOD 2021-12-04 15:19:00 Michel [facility] BLOOD CULTURE SCREEN 2021-12-04 10:21:00 Donal You [facility] LACTIC ACID WHOLE BLOOD 2021-12-04 09:08:00 Donal You [facility] BASIC METABOLIC PANEL 2021-12-04 09:07:00 Michel [facility] (NA, K, CL, CO2, GLUCOSE, Medica l Branch BUN, CREATININE, CA) CBC WITH DIFF 2021-12-04 09:07:00 Michel [facility] EKG-12 LEAD 2021-12-03 21:29:00 Maury Brush [facility] AC ABG + LACTIC ACID 2021-12-03 21:13:00 Maury Brush [facility] PROCALCITONIN 2021-12-03 21:12:00 u Anaya Olivarez [facility] AMYLASE 2021-12-03 21:12:00 Maury Brush [facility] LIPASE 2021-12-03 21:12:00 Maury Brush [facility] TROPONIN I 2021-12-03 21:12:00 Maury Brush [facility] COMP. METABOLIC PANEL 2021-12-03 21:12:00 Maury Brush [facility] ([id number]) [facility] CBC WITH DIFF 2021-12-03 21:12:00 Maury Brush [facility] N-TERMINAL PRO-BNP 2021-12-03 21:12:00 Maury Brush [facility] XR CHEST 1 VW 2021-12-03 20:52:01 Maury Brush [facility] URINALYSIS 2021-12-03 20:34:00 Maury Brush [facility] COVID-19 (ID NOW RAPID 2021-12-03 20:34:00 Maury Brush [facility] TESTING) [facility] AUTHORIZATION FOR RELEASE 2021-11-23 05:01:00 Doctor Unassigned, [facility] OF [facility] EKG-12 LEAD 2021-11-11 05:25:58 Sobeida Samson [facility] BASIC METABOLIC PANEL 2021-11-10 09:16:00 Wilfrid Hathaway [facility] (NA, K, CL, CO2, GLUCOSE, Medica l Branch BUN, CREATININE, CA) CBC WITH DIFF 2021-11-10 09:16:00 Wilfrid Hathaway [place] [facility] LACTIC ACID WHOLE BLOOD 2021-11-10 09:16:00 Sobeida Samson [facility] CT CHEST PULMONARY 2021-11-10 04:49:21 Sobeida Samson [facility] ANGIOGRAM [facility] BLOOD CULTURE SCREEN 2021-11-10 03:58:00 Chapin, Sobeida [facility] BLOOD CULTURE WORKUP 2021-11-10 03:58:00 Sobeida Samson [facility] BLOOD CULTURE SCREEN 2021-11-10 02:56:00 Sobeida Samson [facility] PROTHROMBIN TIME / INR 2021-11-10 01:47:00 [facility]ER 2021-11-10 01:47:00 Sobeida Samson [facility] ACTIVATED PARTIAL 2021-11-10 01:47:00 Sobeida Samson [facility] COVID-19 (ID NOW RAPID 2021-11-10 01:47:00 Sobeida Samson [facility] TESTING) [facility] Branch LAB ONLY COVID 2021-11-10 01:47:00 Sobeida Samson [facility] INTERPRETATION [facility] AC ABG + LACTIC ACID 2021-11-10 01:45:00 Sobeida Samson [facility] XR CHEST 1 VW 2021-11-10 01:38:00 Sobeida Samson [facility] COMP. METABOLIC PANEL 2021-11-10 01:32:00 Sobeida Samson [facility] ([id number]) [facility] CBC WITH DIFF 2021-11-10 01:32:00 Sobeida Samson [facility] CONSENT/REFUSAL FOR 2021-11-10 00:42:41 Doctor Casandra, [facility] DIAGNOSIS AND TREATMENT [facility] AUTHORIZATION FOR RELEASE 2021-11-07 06:01:00 Doctor Unacobyigned, [facility] EXTERNAL PROVIDER - 2021-11-03 06:01:00 Doctor Casandra, [facility] WOMEN'S SERVICES [facility] RADIOLOGY XR CHEST 1 VW 2021-10-24 18:45:48 u Mali [facility] XR CHEST 1 VW 2021-10-24 18:45:48 Abu [facility] BASIC METABOLIC PANEL 2021-10-24 12:36:00 Benjamin Gross [facility] (NA, K, CL, CO2, GLUCOSE, [facility]ica [facility] Branch BUN, CREATININE, CA) CBC WITHOUT DIFF 2021-10-24 12:36:00 Renato [facility] BASIC METABOLIC PANEL 2021-10-24 12:36:00 Renato [facility] (NA, K, CL, CO2, GLUCOSE, Medica [facility] Branch BUN, CREATININE, CA) CBC WITHOUT DIFF 2021-10-24 12:36:00 Renato [facility] XR CHEST 1 VW 2021-10-22 15:58:26 [facility]W 2021-10-22 15:58:26 Michael Olivarez [facility] MAGNESIUM 2021-10-22 10:47:00 Rose [facility] BASIC METABOLIC PANEL 2021-10-22 10:47:00 Zelda Rose [facility] (NA, K, CL, CO2, GLUCOSE, Medica [facility] Branch BUN, CREATININE, CA) CBC WITH DIFF 2021-10-22 10:47:00 Zelda [facility] MAGNESIUM 2021-10-22 10:47:00 Rose [facility] BASIC METABOLIC PANEL 2021-10-22 10:47:00 Zelda Rose [facility] (NA, K, CL, CO2, GLUCOSE, [facility] BUN, CREATININE, CA) CBC WITH DIFF 2021-10-22 10:47:00 Zelda [facility] XR CHEST 1 VW 2021-10-21 22:10:00 Abu Sher [facility] XR CHEST 1 VW 2021-10-21 22:10:00 Abu Sher [facility] AC PANEL 20 + LACTIC ACID 2021-10-21 20:28:00 Abu Mali [facility] AC PANEL 20 + LACTIC ACID 2021-10-21 20:28:00 Abki Samson [facility] CYTO BAL 2021-10-21 18:49:00 Abu Sher [facility] BODY FLUID DIRECT COUNT 2021-10-21 18:47:00 Anaya Kline [facility] BODY FLUID DIRECT COUNT 2021-10-21 18:47:00 Anaya Kline [facility] AFB CULTURE 2021-10-21 18:46:00 [facility] FUNGUS (ROUTINE) CULTURE 2021-10-21 18:46:00 Abki Olivarez [facility] MYCOBACTERIUM 2021-10-21 18:46:00 [facility] TUBERCULOSIS COMPLEX PCR [facility] RESPIRATORY PANEL BY PCR 2021-10-21 18:46:00 [facility] [employer] CULTURE 2021-10-21 18:46:00 [facility] FUNGUS (ROUTINE) CULTURE 2021-10-21 18:46:00 [facility] MYCOBACTERIUM 2021-10-21 18:46:00 [facility] TUBERCULOSIS COMPLEX PCR [facility] RESPIRATORY PANEL BY PCR 2021-10-21 18:46:00 Michael Olivarez [facility] BASIC METABOLIC PANEL 2021-10-21 18:44:00 Anaya Kline [facility] (NA, K, CL, CO2, GLUCOSE, [facility]ica [facility] Branch BUN, CREATININE, CA) BASIC METABOLIC PANEL 2021-10-21 18:44:00 Anaya Kline [facility] (NA, K, CL, CO2, GLUCOSE, [facility] Branch BUN, CREATININE, CA) CBC WITH DIFF 2021-10-21 18:41:00 Michael Olivarez Anaya [facility] PROTHROMBIN TIME / INR 2021-10-21 18:41:00 Anaya Dover [facility] FIBRINOGEN 2021-10-21 18:41:00 ki Olivarez Anaya [facility] CBC WITH DIFF 2021-10-21 18:41:00 ki Malilewis Anaya [facility] PROTHROMBIN TIME / INR 2021-10-21 18:41:00 Anaya Kline iverschastity [facility] FIBRINOGEN 2021-10-21 18:41:00 Anaya Kline [facility] ANTI-NUCLEAR ANTIBODY 2021-10-21 18:41:00 Anaya Kline [facility] [place] TIME OR 2021-10-21 18:18:06 Anaya Kline [facility] (NON-REPORTABLE) [facility] [place] TIME OR 2021-10-21 18:18:06 Anaya Kline [facility] (NON-REPORTABLE) [facility] FLEXIBLE BRONCHOSCOPY 2021-10-21 16:21:00 Anaya Kline [facility] FLEXIBLE BRONCHOSCOPY 2021-10-21 16:21:00 Anaya Kline [facility] XR CHEST 1 VW 2021-10-20 11:13:00 Anaya Kline [facility] XR CHEST 1 VW 2021-10-20 11:13:00 [facility] CBC WITH DIFF 2021-10-20 10:30:00 Maggie [facility] CBC WITH DIFF 2021-10-20 10:30:00 Maggie [facility] URIC ACID 2021-10-20 10:29:00 [facility] BASIC METABOLIC PANEL 2021-10-20 10:29:00 Maggie Morgan [facility] (NA, K, CL, CO2, GLUCOSE, Medica [facility] Branch BUN, CREATININE, CA) URIC ACID 2021-10-20 10:29:00 u [facility] BASIC METABOLIC PANEL 2021-10-20 10:29:00 Maggie Morgan [facility] (NA, K, CL, CO2, GLUCOSE, [facility]ica [facility] Branch BUN, CREATININE, CA) XR CHEST 1 VW 2021-10-19 18:11:14 Abu Anaya Olivarez [facility] XR CHEST 1 VW 2021-10-19 18:11:14 Anaya Kline [facility] CBC WITH DIFF 2021-10-19 09:05:00 Maggie [facility] CBC WITH DIFF 2021-10-19 09:05:00 Maggie [facility] MAGNESIUM 2021-10-19 09:04:00 Ezkevin, [facility] BASIC METABOLIC PANEL 2021-10-19 09:04:00 Maggie Morgan [facility] (NA, K, CL, CO2, GLUCOSE, Medica [facility] Branch BUN, CREATININE, CA) MAGNESIUM 2021-10-19 09:04:00 Ezzo, [facility] BASIC METABOLIC PANEL 2021-10-19 09:04:00 Maggie Morgan [facility] (NA, K, CL, CO2, GLUCOSE, [facility]ica [facility] Branch BUN, CREATININE, CA) POCT GLUCOSE (AUTOMATED) 2021-10-19 02:24:00 Blanca Talavera [facility] POCT GLUCOSE (AUTOMATED) 2021-10-19 02:24:00 Blanca Talavera [facility] COVID-19 (MOLECULAR 2021-10-18 19:48:00 Vale [facility] NUCLEIC ACID AMPLIFICATION) LAB ONLY COVID 2021-10-18 19:48:00 Vale Jones [facility] INTERPRETATION [facility] COVID-19 (MOLECULAR 2021-10-18 19:48:00 Vale Jones [facility] NUCLEIC ACID AMPLIFICATION) LAB ONLY COVID 2021-10-18 19:48:00 Vale Jones [facility] INTERPRETATION [facility] ANGIOTENSIN CONVERTING 2021-10-18 19:45:00 [facility] RHEUMATOID FACTOR 2021-10-18 19:45:00 Amadou Putnam [facility] ANCA SCREEN 2021-10-18 19:45:00 Vale Jones [facility] ANGIOTENSIN CONVERTING 2021-10-18 19:45:00 Vale [facility] RHEUMATOID FACTOR 2021-10-18 19:45:00 Amadou Putnam [facility] ANCA SCREEN 2021-10-18 19:45:00 Robert [facility] XR CHEST 1 VW 2021-10-18 12:37:00 Abu [facility], [facility] XR CHEST 1 VW 2021-10-18 12:37:00 Abu Sher, [facility] PHOSPHORUS 2021-10-18 09:30:00 Ezzo [facility] MAGNESIUM 2021-10-18 09:30:00 Ezzo, [facility] BASIC METABOLIC PANEL 2021-10-18 09:30:00 Rose [facility] (NA, K, CL, CO2, GLUCOSE, Medica [facility] Branch BUN, CREATININE, CA) CBC WITH DIFF 2021-10-18 09:30:00 Ezkevin [facility] GLYCOSYLATED HEMOGLOBIN 2021-10-18 09:30:00 Maggie Morgan [facility] (A1C) [facility] PHOSPHORUS 2021-10-18 09:30:00 Ezzo [facility] MAGNESIUM 2021-10-18 09:30:00 Ezzo, [facility] BASIC METABOLIC PANEL 2021-10-18 09:30:00 Rose [facility] (NA, K, CL, CO2, GLUCOSE, Medica l Branch BUN, CREATININE, CA) CBC WITH DIFF 2021-10-18 09:30:00 Ezkevin [facility] GLYCOSYLATED HEMOGLOBIN 2021-10-18 09:30:00 Maggie Morgan [facility] BASIC METABOLIC PANEL 2021-10-18 00:43:00 Abu Anaya Olivarez [facility] (NA, K, CL, CO2, GLUCOSE, Medica l Branch BUN, CREATININE, CA) BASIC METABOLIC PANEL 2021-10-18 00:43:00 Abu [facility] (NA, K, CL, CO2, GLUCOSE, Medica [facility] Branch BUN, CREATININE, CA) N-TERMINAL PRO-BNP 2021-10-17 21:27:00 Josie [facility] N-TERMINAL PRO-BNP 2021-10-17 21:27:00 Josie [facility] TRANSTHORACIC ECHO (TTE) 2021-10-17 17:05:00 Bk [facility] TRANSTHORACIC ECHO (TTE) 2021-10-17 17:05:00 Bk [facility] XR CHEST 1 VW 2021-10-17 17:00:50 Josie, [facility] XR CHEST 1 2021-10-17 17:00:50 Josie, [facility] XR CHEST 1 2021-10-17 14:17:12 Josie, [facility] XR CHEST 1 2021-10-17 14:17:12 Josie [facility] ABG+COOX+NA+K+GLU+CA2+ 2021-10-17 13:25:00 Shadi Rodriguez [facility] ABG+COOX+NA+K+GLU+CA2+ 2021-10-17 13:25:00 Shadi Rodriguez [facility] PHOSPHORUS 2021-10-17 10:28:00 Josie [facility] MAGNESIUM 2021-10-17 10:28:00 Josie [facility] BASIC METABOLIC PANEL 2021-10-17 10:28:00 Josie [facility] [place] (NA, K, CL, CO2, GLUCOSE, Medica l Branch BUN, CREATININE, CA) SEDIMENTATION RATE 2021-10-17 10:28:00 Tal [facility] CBC WITH DIFF 2021-10-17 10:28:00 Josie [facility] ANTI-NUCLEAR ANTIBODY 2021-10-17 10:28:00 Shadi Rodriguez [facility] ANTI-NUCLEAR ANTIBODY 2021-10-17 10:28:00 Rodriguez, [facility] ANTI-DOUBLE STRANDED DNA 2021-10-17 10:28:00 Amadou Putnam [facility] HIV 1/2 AG-AB WITH REFLEX 2021-10-17 10:28:00 Anaya Kline [facility] ANTI-NUCLEAR 2021-10-17 10:28:00 Tal [facility] ANTIBODY-PATHOLOGIST [facility] INTERPRETATION PHOSPHORUS 2021-10-17 10:28:00 Josie [facility] MAGNESIUM 2021-10-17 10:28:00 Josie [facility] BASIC METABOLIC PANEL 2021-10-17 10:28:00 Josie [facility] [place] (NA, K, CL, CO2, GLUCOSE, Medica l Branch BUN, CREATININE, CA) SEDIMENTATION RATE 2021-10-17 10:28:00 Tal [facility] CBC WITH DIFF 2021-10-17 10:28:00 Josie [facility] ANTI-NUCLEAR ANTIBODY 2021-10-17 10:28:00 Tal [facility] SCREEN [facility] ANTI-NUCLEAR ANTIBODY 2021-10-17 10:28:00 Tal [facility] ANTI-DOUBLE STRANDED DNA 2021-10-17 10:28:00 Amadou Putnam [facility] HIV 1/2 AG-AB WITH REFLEX 2021-10-17 10:28:00 Anaya Kline [facility] ANTI-NUCLEAR 2021-10-17 10:28:00 Tal [facility] ANTIBODY-PATHOLOGIST [facility] INTERPRETATION BLOOD CULTURE SCREEN 2021-10-16 17:40:00 Amadou Putnam Un [facility] BLOOD CULTURE SCREEN 2021-10-16 17:40:00 Amadou Putnam Un [facility] XR CHEST 1 VW 2021-10-16 16:56[facility] 2021-10-16 16:56:36 [facility] RESPIRATORY PANEL BY PCR 2021-10-16 14:46:00 Amadou Putnam [facility] RESPIRATORY PANEL BY PCR 2021-10-16 14:46:00 Amadou Putnam [facility] PHOSPHORUS 2021-10-16 10:47:00 AhSamir [facility] MAGNESIUM 2021-10-16 10:47:00 Ahmed, Samir [facility] BASIC METABOLIC PANEL 2021-10-16 10:47:00 Ahleighann, [facility] (NA, K, CL, CO2, GLUCOSE, Medica l Branch BUN, CREATININE, CA) CBC WITH DIFF 2021-10-16 10:47:00 Josie [facility] AC PANEL 20 + LACTIC ACID 2021-10-16 10:47:00 Samir Galindo Un [facility] PHOSPHORUS 2021-10-16 10:47:00 [facility] MAGNESIUM 2021-10-16 10:47:00 Ahmed, [facility] BASIC METABOLIC PANEL 2021-10-16 10:47:00 AhSamir lawton [facility] sity [facility] (NA, K, CL, CO2, GLUCOSE, Medica l Branch BUN, CREATININE, CA) CBC WITH DIFF 2021-10-16 10:47:00 Josie [facility] AC PANEL 20 + LACTIC ACID 2021-10-16 10:47:00 Samir Galindo [facility] C-REACTIVE PROTEIN 2021-10-15 22:38:00 Shadi Rodriguez [facility] TROPONIN I 2021-10-15 22:38:00 Blanca [facility] BASIC METABOLIC PANEL 2021-10-15 22:38:00 Samir Galindo [facility] sity [facility] (NA, K, CL, CO2, GLUCOSE, Medica l Branch BUN, CREATININE, CA) C-REACTIVE PROTEIN 2021-10-15 22:38:00 Shadi Rodriguez [facility] TROPONIN I 2021-10-15 22:38:00 [facility] BASIC METABOLIC PANEL 2021-10-15 22:38:00 Josie [facility] (NA, K, CL, CO2, GLUCOSE, Medica l Branch BUN, CREATININE, CA) PNEUMOCOCCAL ANTIGEN 2021-10-15 21:49:[address] [facility] PNEUMOCOCCAL ANTIGEN 2021-10-15 21:49:[address] [facility] LEGIONELLA URINARY 2021-10-15 21:48:00 Josie [facility] ANTIGEN TST [facility] LEGIONELLA URINARY 2021-10-15 21:48:00 Josie [facility] ANTIGEN [facility] CT ANGIOGRAM CHEST 2021-10-15 19:22:00 [facility]ST 2021-10-15 19:22:[address] [facility] TROPONIN I 2021-10-15 17:29:00 [facility] RAPID INFLUENZA A/B 2021-10-15 17:29:00 [facility] N-TERMINAL PRO-BNP 2021-10-15 17:29:00 Vito Bourgeoisdaysi [facility] PROCALCITONIN 2021-10-15 17:29:00 Nicol Bourgeois [facility] COVID-19 (MOLECULAR 2021-10-15 17:29:00 Nicol [facility] NUCLEIC ACID AMPLIFICATION) LAB ONLY COVID 2021-10-15 17:29:00 Nicol Bourgeois [facility] INTERPRETATION [facility] TROPONIN I 2021-10-15 17:29:00 [facility] RAPID INFLUENZA A/B 2021-10-15 17:29:00 Nicol Bourgeois [facility] N-TERMINAL PRO-BNP 2021-10-15 17:29:00 Nicol Bourgeois [facility] PROCALCITONIN 2021-10-15 17:29:00 Bk [facility] Medical Branch COVID-19 (MOLECULAR 2021-10-15 17:29:00 Bk [facility] TESTING Medical Branch NUCLEIC ACID AMPLIFICATION) LAB ONLY COVID 2021-10-15 17:29:00 Bk [facility] INTERPRETATION Medical Branch COVID-19 (ID NOW RAPID 2021-10-15 13:03:00 Samir Galindo [facility] TESTING) Medical Branch LAB ONLY COVID 2021-10-15 13:03:00 Josie [facility] INTERPRETATION [facility] Branch COVID-19 (ID NOW RAPID 2021-10-15 13:03:00 Samir Galindo [facility] TESTING) Medical Branch LAB ONLY COVID 2021-10-15 13:03:[address] [facility] XR CHEST 1 2021-10-15 09:46:38 Ilan [facility] XR CHEST 1 2021-10-15 09:46:38 Ilan [facility] MAGNESIUM 2021-10-15 08:16:00 Josie [facility] BASIC METABOLIC PANEL 2021-10-15 08:16:00 Josie [facility] [place] (NA, K, CL, CO2, GLUCOSE, Medica l Branch BUN, CREATININE, CA) PROCALCITONIN 2021-10-15 08:16:00 [facility] MAGNESIUM 2021-10-15 08:16:00 Josie [facility] BASIC METABOLIC PANEL 2021-10-15 08:16:00 Josie [facility] [place] (NA, K, CL, CO2, GLUCOSE, Medica l Branch BUN, CREATININE, CA) PROCALCITONIN 2021-10-15 08:16:00 Ilan [facility] ABG+COOX+NA+K+GLU+CA2+ 2021-10-15 07:24:00 Josie Samir [facility] ABG+COOX+NA+K+GLU+CA2+ 2021-10-15 07:24:00 Samir Galindo [facility] TROPONIN I 2021-10-15 07:10:00 Ilan [facility] CBC WITH DIFF 2021-10-15 07:10:00 [facility] 2021-10-15 07:10:00 Ilan [facility] CBC WITH DIFF 2021-10-15 07:10:00 Samir [facility] MRSA / MSSA SCREEN BY 2021-10-15 07:09:00 Josie [facility] [place] MRSA / MSSA SCREEN BY 2021-10-15 07:09:00 [facility] AUTHORIZATION FOR RELEASE 2021-06-09 05:01:00 Doctor Unassigned, [facility] [place] [facility] Branch Encounters Start End Encounter Admission Attending Care Care Encounter Source Date/Time Date/Time Type Type Clinicians Facility Department ID 2022-04-17 2022-04-17 Outpatient R [facility] [id number] Univers 20:00:00 20:00:00 [id number] [facility] 2022-04-17 2022-04-17 Outpatient R WILMAR MADISON [facility] [id number] Univers 20:00:00 20:00:00 [facility] 2022-04-15 Outpatient R [facility] [id number] Univers 08:00:00 08:00:00 [id number] [facility] 2022-04-15 2022-04-15 Outpatient R [facility] [id number] Univers 08:00:00 08:00:00 [facility] 2022-03-15 2022-03-15 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 2.840.114 [id number] Univers 20:00:00 22:30:00 Visit Wilmar Madison 350.1.13. 10 ity of [place] 4.2.7.2.686 [facility] [id number] [facility] 193 Branch 2022-03-15 2022-03-15 Outpatient R [facility] [id number] Univers 20:00:00 20:00:00 [id number] ity [facility] 2022-03-15 2022-03-15 Outpatient R WILMAR MADISON [facility] [id number] Univers 20:00:00 20:00:00 KRISTINPETTY NOLASCOAjit itnorris [facility] 2022-03-14 2022-03-14 Laboratory Only, Adc Test RUST 1.2.840. 114 [id number] Univers 15:30:00 15:45:00 Only Wilmar Madison 350.1.13. 10 ity of [place] 4.2.7.2.686 [facility] [id number] [facility] 353 Branch 2022-03-14 2022-03-14 Outpatient R [facility] [id number] Univers 15:30:00 15:30:00 [id number] ity [facility] 2022-03-14 2022-03-14 Outpatient R LESTER MADISONCAAjit [facility] [id number] Univers 15:30:00 15:30:00 DANOWILMAR [facility] 2022-03-14 2022-03-14 Orders Doctor MARISCAL 1.2.840.114 [id number] Univers 00:00:00 00:00:00 Only Unassigned, BETH 350.1.13.10 ity of [place] [facility] 4.2.7.2.686 José Miguel [phone] [facility] 009 Branch 2022-02-25 2022-02-26 Outpatient X [facility] ERIN [id number] Univers 18:18:00 12:30:00 chastity OLIVAREZ [facility] 2022-02-25 2022-02-26 Emergency Sobeida Samson RUST 1.2.8 40.114 [id number] Univers 18:18:00 12:30:00 u Anaya Olivarez [facility] 350.1.13.10 ity of [place] 4.2.7.2.686 [facility] [id number] [facility] 110 Branch (CLC) 2022-02-22 2022-02-23 Emergency X SETH, RUST ERT [id number] Univers 21:42:00 01:19:00 BRO norris [facility] 2022-02-22 2022-02-23 [facility] 1.2.840.114 [id number] Univers 21:42:00 01:19:00 Bro BOBBI 350.1.13.10 i ty [facility] 4.2.7.2.686 [facility] [id number] [address] 2022-01-29 2022-01-29 Emergency X JADEN RENE RUST ERT [id number] Univers 14:38:00 16:55:00 JADEN RENE [facility] 2022-01-29 2022-01-29 [facility] 1.2.567.074 [id number] Univers 14:38:00 16:55:00 [facility] 350.1.13.10 it y of [place] 4.2.7.2.686 [facility] [id number] [facility] 014 Branch ([facility]) 2022-01-29 2022-01-29 Emergency [facility] ERT [id number] Univers 07:51:00 10:37:00 MAI [facility] 2022-01-29 2022-01-29 Emergency [facility] 1.2.840.114 [id number] Univers 07:51:00 10:37:00 Mai MARTINES 350.1.13.10 ity [facility] 4.2.7.2.686 [facility] [id number] [address] 2022-01-05 2022-01-05 Outpatient Jonh CAMERON [facility] WWACU [id number] [place] 10:46:00 14:42:00 [facility] 2022-01-02 2022-01-03 Emergency X WILMER RUST ERT [id number] Univers 21:43:00 00:14:00 JACKLYN [facility] 2022-01-02 2022-01-03 Emergency Wilmer RUST 1.2.056.996 [id number] Univers 21:43:00 00:14:00 Jacklyn MARTINES 350.1.13.10 ity of [place].2.686 [place] [id number] [facility] 084 Branch 2021-12-08 2021-12-08 Transition SABINA Heart 1.2.840.114 [id number] Univers 00:00:00 00:00:00 of Care Marjan DOHERTY 350.1.13.10 i ty [place]2.[place] [id number] [facility] 403 Branch 2021-12-05 2021-12-07 Inpatient X MARY RUST ERIN [id number] Univers 17:33:00 12:01:00 ADNAN ity of [facility] 2021-12-05 2021-12-07 Hospital Christos Tovar RUST 1.2.840.1 14 [id number] Univers 17:33:00 12:01:00 Encounter Jacklyn Guillen 350.1.13.1 0 ity of [place] 4.2.7.2.686 [facility] [id number] [facility] 080 Branch 2021-12-03 2021-12-05 Outpatient X MICHEL RUST ERIN [id number] Univers 12:50:00 05:42:00 WILFRID ity of [facility] 2021-12-03 2021-12-05 [facility] Maury Brush RUST 1.2.84 0.114 [id number] Univers 12:50:00 05:42:00 [facility] 350.1.13.10 [place] [id number] [place] [address] Branch ([facility]) 2021-11-23 2021-11-23 Orders Doctor MARISCAL 1.2.840.114 [id number] Univers 00:00:00 00:00:00 Only Unassigned, BETH 350.1.13.10 ity of [place] [facility] 4.2.7.2.686 José Miguel as [id number] [facility] 009 Branch 2021-11-09 2021-11-11 Outpatient X MICHEL RUST ERIN [id number] Univers 18:47:00 17:31:00 WILFRID ity of [facility] 2021-11-09 2021-11-11 Emergency Sobeida Samson RUST 1.2.8 40.114 [id number] Univers 18:47:00 17:31:00 Michel Wilfrid HEALTH 350.1.13.10 it[place] of [place] [id number] [facility] 116 Branch ([facility]) 2021-11-07 2021-11-07 Orders Doctor LOIDA 1.2.840.114 [id number] Univers 00:00:00 00:00:00 Only Unassigned, BETH 350.1.13.10 ity of [place] [facility] 4.2.7.2.686 José Miguel as [id number] [place] [address] Branch 2021-11-03 2021-11-03 Orders Doctor LOIDA 1.2.840.114 [id number] Univers 00:00:00 00:00:00 Only Unassigned, BETH 350.1.13.10 ity of [place] [facility]OSPITAL 4.2.7.2.686 José Miguel as [id number] [place] [address] Branch 2021-10-25 2021-10-25 Transition SABINA Waters 1.2.840.114 [id number] Univers 00:00:00 00:00:00 of Care Any L DOHERTY 350.1.13.10 i ty of [place] [id number] [facility] 403 Branch 2021-10-15 2021-10-24 Inpatient U REHANA RUST ERIN [id number] Univers 00:23:00 17:53:00 FLASH itnorris of [facility] 2021-10-15 2021-10-24 Hospital Blanca Talavera RUST 1.2.840.114 [id number] Univers 00:23:00 17:53:00 Encounter Micheal Galindoiaz EVELYN 350.1.13.10 ity of [place] 4.2.7.2.686 Flash Aldana [id number] [facility] 113 Branch ([facility]) 2021-10-21 2021-10-21 [facility] 1.2.840.114 [id number] Univers 10:00:00 10:45:00 Atherah, HEALTH 350.1.13.10 i ty of Anaya [place] 4.2.7.2.686 Sandi JONES [id number] [facility] 020 Branch ([facility]) 2021-06-09 2021-06-09 Orders Doctor LOIDA 1.2.840.114 [id number] Univers 00:00:00 00:00:00 Only Unassigned, BETH 350.1.13.10 ity of [facility] 4.2.7.2.686 José Miguel as [id number] [place] [address] Branch 2012-11-25 2012-11-25 Outpatient AMOR SHAIKH [facility] [id number] Univers 00:00:00 16:37:20 AMOR SHAIKH 3 i ty of [facility] 2012-11-25 2012-11-25 Outpatient AMOR SHAIKH [facility] [id number] Univers 00:00:00 00:00:00 AMOR SHAIKH [id number] i ty of [facility] 2012-04-09 2012-04-09 Outpatient [facility] [id number] Univers 00:00:00 00:00:00 [id number] ity of [facility] 2012-04-08 2012-04-08 Outpatient [facility] [id number] Univers 00:00:00 16:51:12 1 ity of [facility] 2012-01-11 2012-01-11 Outpatient [facility] [id number] Univers 00:00:00 00:00:00 [id number] ity of [facility] 2011-10-12 2011-10-12 Outpatient [facility] [id number] Univers 00:00:00 00:00:00 [id number] ity of [facility] 2011-04-13 2011-04-13 Outpatient [facility] [id number] Univers 00:00:00 10:43:11 1 ity of [facility] 2011-03-16 2011-03-16 Outpatient [facility] [id number] Univers 00:00:00 00:00:00 [id number] [facility] 2010-09-15 2010-09-15 Outpatient [facility] [id number] Univers 00:00:00 11:23:44 5 [facility] 2010-06-13 2010-06-13 Outpatient [facility] [id number] Univers 00:00:00 00:00:00 [id number] [facility] 2010-06-09 2010-06-09 Outpatient [facility] [id number] Univers 00:00:00 00:00:00 [id number] [facility] 2010-03-11 2010-03-11 Outpatient [facility] [id number] Univers 00:00:00 16:25:54 5 [facility] 2009-09-13 2009-09-13 Outpatient [facility] [id number] Univers 00:00:00 16:22:48 1 [facility] 2009-08-31 2009-08-31 Outpatient [facility] [id number] Univers 00:00:00 09:36:31 1 [facility] Results Test Description Test Time Test Comments Results Result Comments Source Basic Metabolic Panel (NA, K, CL, CO2, GLUCOSE, BUN, 2022-02 09:48:31 CREATININE, CA) Test Item Value Reference Range Interpretation Comme nts NA (test code = 6014818132) 143 mmol/L 135-145 K (test code = 6002166216) 3.5 mmol/L 3.5-5.0 CL (test code = 8702562982) 114 mmol/L 98-108 H CO2 TOTAL (test code = 9617888818) 24 mmol/L 23-31 AGAP (test code = 8198083634) 2-16 BUN (test code = 2725434466) 9 mg/dL 7-23 GLUCOSE (test code = 4190778237) 96 mg/dL 70-110 CREATININE (test code = 0.92 mg/dL 0.50-1.04 2122777867) CALCIUM (test code = 0698568937) 8.1 mg/dL 8.6-10.6 L eGFR (test code = 3044269713) mL/min/1.73m2 LUCILLE (test code = LUCILLE) Association [...] tests). Lab Interpretation (test code = Abnormal 24476-8) [facility] with [id number] 09:36:32 Test Item Value Reference Range Interpretation Comments WBC (test code = See_Comment [Automated 4208-2) message] The sy stem which generated this result transmitted reference range : 4.30 - 11.10 10*3/?L. The reference range was not used to interpret this result as normal/abnormal . RBC (test code = See_Comment [Automated 590-8) message] The sy stem which generated this result transmitted reference range : 3.93 - 5.25 10*6/?L. The reference range was not used to interpret this result as normal/abnormal . HGB (test code = 10.0 g/dL 11.6-15.0 L 718-7) HCT (test code = 32.7 % 35.7-45.2 L 4544-3) MCV (test code = 76.9 fL 80.6-95.5 L 787-2) MCH (test code = 23.5 pg 25.9-32.8 L 785-6) MCHC (test code = 30.6 g/dL 31.6-35.1 L 786-4) RDW-SD (test code = 46.8 fL 39.0-49.9 84022-3) RDW-CV (test code = 16.7 % 12.0-15.5 H 788-0) PLT (test code = See_Comment [Automated 777-3) message] The sy stem which generated this result transmitted reference range : 166 - 358 10*3/ ?L. The reference r nicholas was not used to interpret this result as normal/abnormal . MPV (test code = 10.8 fL 9.5-12.9 76874-1) NRBC/100 WBC (test See_Comment [Automat ed code = 9036287811) message] The system which generated this result transmitted reference range : 0.0 - 10.0 /100 WBCs. The refer ence range was not u sed to interpret th is result as normal/abnormal . NRBC x10^3 (test code <0.01 See_Comment [Auto mated = 2471449620) message] The s ystem which generated this result transmitted reference range : 10*3/?L. The reference range was not used to interpret this result as normal/abnormal . GRAN MAT (NEUT) % 54.4 % (test code = 770-8) IMM GRAN % (test code 0.20 % = 2834288602) LYMPH % (test code = 31.5 % 736-9) MONO % (test code = 8.7 % 5905-5) EOS % (test code = 3.2 % 713-8) BASO % (test code = 2.0 % 706-2) GRAN MAT x10^3(ANC) 2.69 10*3/uL 1.88-7.09 (test code = 4310298309) IMM GRAN x10^3 (test <0.03 0.00-0.06 code = 4040098302) LYMPH x10^3 (test code 1.56 10*3/uL 1.32-3.29 = 731-0) MONO x10^3 (test code 0.43 10*3/uL 0.33-0.92 = 742-7) EOS x10^3 (test code = 0.16 10*3/uL 0.03-0.39 711-2) BASO x10^3 (test code 0.10 10*3/uL 0.01-0.07 H = 704-7) Lab Interpretation Abnormal (test code = 56765-9) [facility] [id number] 04:00:15 Test Item Value Reference Interpretation Comments Range TROPONIN I (test 0.004 ng/mL See_Comment [Automated code = 1475392232) message] The system which generated this result [...] biotin. Lab Interpretation Normal (test code = 80053-0) [facility] [id number] 04:00:15 Test Item Value Reference Range Interpretation Comments NT-proBNP (test code 42 pg/mL See_Comment [Autom ated = 4811386126) message] The system which generated this result transmitted reference range : <=125. The reference range was not used to interpret this result as normal/abnormal . LUCILLE (test code = LUCILLE) Biotin has been reported to cause a negative bias, interpret results relative to patient's use of biotin. Lab Interpretation Normal (test code = 40321-0) [facility] METABOLIC PANEL ([id number])2022-02-26 03:48:34 Test Item Value Reference Range Interpretation Comments NA (test code = 142 mmol/L 135-145 7400932914) K (test code = 3.6 mmol/L 3.5-5.0 Slight 0231153273) hemolysis CL (test code = 109 mmol/L 98-108 H 3303122783) CO2 TOTAL (test code 26 mmol/L 23-31 = 0087705895) AGAP (test code = 2-16 2855903517) BUN (test code = 10 mg/dL 7-23 Slight 6931136153) hemolysis GLUCOSE (test code = 84 mg/dL 70-110 5586916957) CREATININE (test code 0.99 mg/dL 0.50-1.04 = 8318325783) TOTAL BILI (test code 0.4 mg/dL 0.1-1.1 = 7272929845) CALCIUM (test code = 8.9 mg/dL 8.6-10.6 6401662689) T PROTEIN (test code 6.5 g/dL 6.3-8.2 = 1918720473) ALBUMIN (test code = 4.0 g/dL 3.5-5.0 1523162529) ALK PHOS (test code = 71 U/L 34-122 Slight 6583225356) hemolysis ALTv (test code = 18 U/L 5-35 1742-6) AST(SGOT) (test code 25 U/L 13-40 Slight = 5610628199) hemolysis eGFR (test code = mL/min/1.73m2 4061190128) LUCILLE (test code = LUCILLE) Association of [...] tests). Lab Interpretation Abnormal (test code = 49831-3) [facility]2022-06-26 03:48:34 Test Item Value Reference Range Interpretation Comments LIPASE (test code = 7370299985) 166 U/L 0-220 Lab Interpretation (test code = Normal 74472-1) [facility] WITH [id number] 03:34:33 Test Item Value Reference Range Interpretation Comments WBC (test code = See_Comment [Automated 6690-2) message] The sy stem which generated this result transmitted reference range : 4.30 - 11.10 10*3/?L. The reference range was not used to interpret this result as normal/abnormal . RBC (test code = See_Comment [Automated 559-8) message] The sy stem which generated this result transmitted reference range : 3.93 - 5.25 10*6/?L. The reference range was not used to interpret this result as normal/abnormal . HGB (test code = 10.8 g/dL 11.6-15.0 L 718-7) HCT (test code = 35.2 % 35.7-45.2 L 4544-3) MCV (test code = 77.2 fL 80.6-95.5 L 787-2) MCH (test code = 23.7 pg 25.9-32.8 L 785-6) MCHC (test code = 30.7 g/dL 31.6-35.1 L 786-4) RDW-SD (test code = 47.2 fL 39.0-49.9 30198-1) RDW-CV (test code = 16.8 % 12.0-15.5 H 788-0) PLT (test code = See_Comment [Automated 777-3) message] The sy stem which generated this result transmitted reference range : 166 - 358 10*3/ ?L. The reference r nicholas was not used to interpret this result as normal/abnormal . MPV (test code = 10.3 fL 9.5-12.9 56214-1) NRBC/100 WBC (test See_Comment [Automat ed code = 6511786179) message] The system which generated this result transmitted reference range : 0.0 - 10.0 /100 WBCs. The refer ence range was not u sed to interpret th is result as normal/abnormal . NRBC x10^3 (test code <0.01 See_Comment [Auto mated = 1154009422) message] The s ystem which generated this result transmitted reference range : 10*3/?L. The reference range was not used to interpret this result as normal/abnormal . GRAN MAT (NEUT) % 51.0 % (test code = 770-8) IMM GRAN % (test code 0.20 % = 3943963095) LYMPH % (test code = 31.6 % 736-9) MONO % (test code = 10.7 % 5905-5) EOS % (test code = 4.3 % 713-8) BASO % (test code = 2.2 % 706-2) GRAN MAT x10^3(ANC) 2.59 10*3/uL 1.88-7.09 (test code = 1324749341) IMM GRAN x10^3 (test <0.03 0.00-0.06 code = 8634276426) LYMPH x10^3 (test code 1.60 10*3/uL 1.32-3.29 = 731-0) MONO x10^3 (test code 0.54 10*3/uL 0.33-0.92 = 742-7) EOS x10^3 (test code = 0.22 10*3/uL 0.03-0.39 711-2) BASO x10^3 (test code 0.11 10*3/uL 0.01-0.07 H = 704-7) Lab Interpretation Abnormal (test code = 59834-2) [facility] DallasWENDY [id number] 06:03:26 Test Item Value Reference Interpretation Comments Range TROPONIN I (test 0.003 ng/mL See_Comment [Automated code = 1033260384) message] The system which generated this result [...] biotin. Lab Interpretation Normal (test code = 37143-9) [facility] [id number] 03:56:22 Test Item Value Reference Interpretation Comments Range TROPONIN I (test 0.003 ng/mL See_Comment [Automated code = 0867215617) message] The system which generated this result [...] biotin. Lab Interpretation Normal (test code = 84174-3) [facility] Dallas[facility]MINAL [id number] 03:53:00 Test Item Value Reference Range Interpretation Comments NT-proBNP (test code 143 pg/mL See_Comment H [Autom ated = 2219626444) message] The system which generated this result transmitted reference range : <=125. The reference range was not used to interpret this result as normal/abnormal . LUCILLE (test code = LUCILLE) Biotin has been reported to cause a negative bias, interpret results relative to patient's use of biotin. Lab Interpretation Abnormal (test code = 35414-4) [facility]. METABOLIC PANEL ([id number])2022-02-23 03:45:59 Test Item Value Reference Range Interpretation Comments NA (test code = 140 mmol/L 135-145 3161396370) K (test code = 4.0 mmol/L 3.5-5.0 8494151302) CL (test code = 110 mmol/L 98-108 H 0096391169) CO2 TOTAL (test code = 17 mmol/L 23-31 L 5303659760) AGAP (test code = 2-16 4900359058) BUN (test code = 14 mg/dL 7-23 9802833505) GLUCOSE (test code = 105 mg/dL 70-110 9228760533) CREATININE (test code = 1.03 mg/dL 0.50-1.04 0197352990) TOTAL BILI (test code = 0.3 mg/dL 0.1-1.3 9860314445) CALCIUM (test code = 8.9 mg/dL 8.6-10.6 8385359915) T PROTEIN (test code = 6.1 g/dL 6.3-8.2 L 2997895539) ALBUMIN (test code = 3.8 g/dL 3.5-5.0 5777366417) ALK PHOS (test code = 91 U/L 34-122 3167402790) ALTv (test code = 19 U/L 5-35 1742-6) AST(SGOT) (test code = 21 U/L 13-40 9094668511) eGFR (test code = mL/min/1.73m2 1278769112) LUCILLE (test code = LUCILLE) Association of [...] tests). Lab Interpretation Abnormal (test code = 01028-5) [facility] WITH [id number] 03:23:19 Test Item Value Reference Range Interpretation Comments WBC (test code = See_Comment [Automated 1890-2) message] The sy stem which generated this result transmitted reference range : 4.30 - 11.10 10*3/?L. The reference range was not used to interpret this result as normal/abnormal . RBC (test code = See_Comment [Automated 539-8) message] The sy stem which generated this result transmitted reference range : 3.93 - 5.25 10*6/?L. The reference range was not used to interpret this result as normal/abnormal . HGB (test code = 10.4 g/dL 11.6-15.0 L 718-7) HCT (test code = 33.4 % 35.7-45.2 L 4544-3) MCV (test code = 76.3 fL 80.6-95.5 L 787-2) MCH (test code = 23.7 pg 25.9-32.8 L 785-6) MCHC (test code = 31.1 g/dL 31.6-35.1 L 786-4) RDW-SD (test code = 45.7 fL 39.0-49.9 03421-4) RDW-CV (test code = 16.6 % 12.0-15.5 H 788-0) PLT (test code = See_Comment [Automated 777-3) message] The sy stem which generated this result transmitted reference range : 166 - 358 10*3/ ?L. The reference r nicholas was not used to interpret this result as normal/abnormal . MPV (test code = 10.9 fL 9.5-12.9 21939-1) NRBC/100 WBC (test See_Comment [Automat ed code = [id number]) message] The system which generated this result transmitted reference range : 0.0 - 10.0 /100 WBCs. The refer ence range was not u sed to interpret th is result as normal/abnormal . NRBC x10^3 (test code <0.01 See_Comment [Auto mated = [id number]) message] The s ystem which generated this result transmitted reference range : 10*3/?L. The reference range was not used to interpret this result as normal/abnormal . GRAN MAT (NEUT) % 53.8 % (test code = 770-8) IMM GRAN % (test code 0.20 % = [id number]) LYMPH % (test code = 34.0 % 736-9) MONO % (test code = 7.9 % 5905-5) EOS % (test code = 2.6 % 713-8) BASO % (test code = 1.5 % 706-2) GRAN MAT x10^3(ANC) 3.25 10*3/uL 1.88-7.09 (test code = 9854443143) IMM GRAN x10^3 (test <0.03 0.00-0.06 code = 5549437763) LYMPH x10^3 (test code 2.06 10*3/uL 1.32-3.29 = 731-0) MONO x10^3 (test code 0.48 10*3/uL 0.33-0.92 = 742-7) EOS x10^3 (test code = 0.16 10*3/uL 0.03-0.39 711-2) BASO x10^3 (test code 0.09 10*3/uL 0.01-0.07 H = 704-7) Lab Interpretation Abnormal (test code = 52823-9) [facility], THIRD [id number] 09:21:37 Test Item Value Reference Range Interpretation Comments TSH, THIRD TEST NOT 0.400-4.100 TESTING GENERATION (test PERFORMED UIU/ML CANNOT BE PERFORMED code = 2821) DUE TO AN INTERFERING SUBSTANCE. MARII RGES DELETED. [id number] 09:21:37 Test Item Value Reference Range Interpretation Comments PROGESTERONE (test TEST NOT SEE BELOW EDWIN TING CANNOT code = 3710) PERFORMED NG/ML BE PERFORMED DUE TO AN INTERFERING SUBSTANCE. MARII RGES DELETED. EXPECTED VALUES FOR PROGESTERONE MALE . . . . . . . . . . . . . . . . NG/ML <0. 20 FEMALE FOLLICULAR PHAS E . . . . . . . . . N G/ML <0.90 OVULATION . . . . . . . . . . . . N G/ML <12.00 LUTEAL PHASE . . . . . . . . . . . N G/ML 1.83-23.90 POSTMENOPAUSAL . . . . . . . . . . NG/ML <0.20 1ST TRIMESTE R. . . . . . . . . . . NG/ML 11.00-44.30 2ND TRIMESTER. . . . . . . . . . . N G/ML 25.40-83.30 3RD TRIMESTER . . . . . . . . . . . NG/ML 58.70-214.00 [id number] 09:21:37 Test Item Value Reference Range Interpretation Comments ESTRADIOL (test TEST NOT SEE BELOW TESTIN G CANNOT code = 7525) PERFORMED PG/ML BE PERFORMED DUE TO AN INTERFERING SUBSTANCE. MARII RGES DELETED. UNLESS OTHERWIS E INDICATED, ALL TESTING PERFORM ED [facility], [facility]. [address] [place] [address] 4 INTRUSION ANALYST: SADIQ VANEGAS M.D. CLIA NUMBER [id number] CAP ACCREDITATION N O. [id number] COMPREHENSIVE METABOLIC [id number] 09:21:22 Test Item Value Reference Range Interpretation Comments GLUCOSE (test code TEST NOT 70-99 EDWIN TING = 2217) PERFORMED MG/DL CANNOT BE PERFORMED DUE T O AN INTERFERING SUBSTANCE. CHARGES DELETED . BUN (test code = TEST NOT 620 2207) PERFORMED MG/DL CREATININE (test TEST NOT 0.60-1.30 code = 2213) PERFORMED MG/DL eGFR (2020 CKD-EPI) TEST NOT >60 (test code = ) PERFORMED ML/MIN/1.73 CALC BUN/CREAT TEST NOT 6-28 (test code = 2234) PERFORMED RATIO SODIUM (test code = TEST NOT 205-120 5354) PERFORMED MEQ/L POTASSIUM (test TEST NOT 3.5-5.4 code = 2227) PERFORMED MEQ/L CHLORIDE (test code TEST NOT 95-107 = 2214) PERFORMED MEQ/L CARBON DIOXIDE TEST NOT 19-31 (test code = 2205) PERFORMED MEQ/L CALCIUM (test code TEST NOT 8.5-10.5 = 2208) PERFORMED MG/DL PROTEIN, TOTAL TEST NOT 6.1-8.3 (test code = 2228) PERFORMED G/DL ALBUMIN (test code TEST NOT 3.5-5.2 = 2200) PERFORMED G/DL CALC GLOBULIN (test TEST NOT 1.9-3.7 code = 2239) PERFORMED G/DL CALC A/G RATIO TEST NOT 1.0-2.6 (test code = 2233) PERFORMED RATIO BILIRUBIN, TOTAL TEST NOT See_Comment [Automated (test code = 2206) PERFORMED MG/DL messag e] The system which generated this result transmit britney reference range : <=1.2. The reference range was not used to interpret this result as normal/abnormal . ALKALINE TEST NOT 40-130 PHOSPHATASE (test PERFORMED U/L code = 2203) AST (test code = TEST NOT 2217) PERFORMED U/L ALT (test code = TEST NOT 2218) PERFORMED U/L TROPONIN [id number] 14:05:29 Test Item Value Reference Interpretation Comments Range TROPONIN I (test <0.012 See_Comment [Automated code = 7096231938) message] The system which generated this result transmitted reference range : <=0.034 ng/mL. The reference range was not used to [...] biotin. Lab Interpretation Normal (test code = 24308-4) [id number] 14:02:07 Test Item Value Reference Range Interpretation Comments NT-proBNP (test code 343 pg/mL See_Comment H [Autom ated = 8957935520) message] The system which generated this result transmitted reference range : <=125. The reference range was not used to interpret this result as normal/abnormal . LUCILLE (test code = LUCILLE) Biotin has been reported to cause a negative bias, interpret results relative to patient's use of biotin. Lab Interpretation Abnormal (test code = 99646-8) [facility]. METABOLIC PANEL (85294)2022-01-29 13:53:30 Test Item Value Reference Range Interpretation Comments NA (test code = 146 mmol/L 135-145 H 4830485348) K (test code = 4.2 mmol/L 3.5-5.0 3762762375) CL (test code = 114 mmol/L 98-108 H 6208880365) CO2 TOTAL (test code = 23 mmol/L 23-31 9417007270) AGAP (test code = 2-16 4175120221) BUN (test code = 14 mg/dL 7-23 5679146429) GLUCOSE (test code = 72 mg/dL 70-110 0293750992) CREATININE (test code = 1.08 mg/dL 0.50-1.04 H 9105720134) TOTAL BILI (test code = 0.3 mg/dL 0.1-1.3 8400008464) CALCIUM (test code = 9.1 mg/dL 8.6-10.6 6193553007) T PROTEIN (test code = 6.1 g/dL 6.3-8.2 L 5029925436) ALBUMIN (test code = 3.8 g/dL 3.5-5.0 9811273689) ALK PHOS (test code = 86 U/L 34-122 0297641291) ALTv (test code = 26 U/L 5-35 1742-6) AST(SGOT) (test code = 28 U/L 13-40 3616301132) eGFR (test code = mL/min/1.73m2 3996023435) LUCILLE (test code = LUCILLE) Association of [...] tests). Lab Interpretation Abnormal (test code = 51569-1) [facility] + LACTIC [id number] 13:52:59 Test Item Value Reference Range Interpretation Comments PH (test code = 7.32-7.42 6200130310) PCO2 WYATT (test code = See_Comment [Auto mated 6017189607) message] The sy stem which generated this result transmitted reference range : 41 - 51 mmHg. The reference range was not used to interpret this result as normal/abnormal . PO2 WYATT (test code = See_Comment L [Autom ated 4021146404) message] The sy stem which generated this result transmitted reference range : 25 - 40 mmHg. The reference range was not used to interpret this result as normal/abnormal . HCO3 WYATT (test code = See_Comment [Auto mated 6297289637) message] The sy stem which generated this result transmitted reference range : 24 - 28 mEq/L. The reference range was not used to interpret this result as normal/abnormal . AC VBE(BEAKER) (test mEq/L code = 7723883614) THB WYATT (test code = 11.4 g/dL 12.0-16.0 L 5558798974) %O2HB WYATT (test code = 21.7 % 52.0-63.0 L 8012977073) %COHB WYATT (test code = 0.3 % 0.0-1.5 1082900740) %METHB WYATT (test code = 1.1 % 0.4-1.5 3969087320) VOL%O2 WYATT (test code = 3.5 % 6.0-12.0 L 3354996367) NA (test code = 145 mmol/L 135-145 4767246611) K+ (test code = 4.0 mmol/L 3.5-5.0 2072075305) AC CA IONZ (test code = 5.00 mg/dL 4.50-5.30 1676778426) GLUCOSE (test code = 70 mg/dL 70-110 2364736466) LACTIC ACID (test code 2.81 mmol/L 0.50-2.20 H = 9837370455) Lab Interpretation Abnormal (test code = 52315-0) [facility] WITH [id number] 13:41:47 Test Item Value Reference Range Interpretation Comments WBC (test code = See_Comment [Automated 4890-2) message] The sy stem which generated this result transmitted reference range : 4.30 - 11.10 10*3/?L. The reference range was not used to interpret this result as normal/abnormal . RBC (test code = See_Comment [Automated 789-8) message] The sy stem which generated this result transmitted reference range : 3.93 - 5.25 10*6/?L. The reference range was not used to interpret this result as normal/abnormal . HGB (test code = 10.6 g/dL 11.6-15.0 L 718-7) HCT (test code = 34.9 % 35.7-45.2 L 4544-3) MCV (test code = 82.1 fL 80.6-95.5 787-2) MCH (test code = 24.9 pg 25.9-32.8 L 785-6) MCHC (test code = 30.4 g/dL 31.6-35.1 L 786-4) RDW-SD (test code = 47.6 fL 39.0-49.9 24150-6) RDW-CV (test code = 15.9 % 12.0-15.5 H 788-0) PLT (test code = See_Comment [Automated 777-3) message] The sy stem which generated this result transmitted reference range : 166 - 358 10*3/ ?L. The reference r nicholas was not used to interpret this result as normal/abnormal . MPV (test code = 10.9 fL 9.5-12.9 21273-9) NRBC/100 WBC (test See_Comment [Automat ed code = 2970592675) message] The system which generated this result transmitted reference range : 0.0 - 10.0 /100 WBCs. The refer ence range was not u sed to interpret th is result as normal/abnormal . NRBC x10^3 (test code <0.01 See_Comment [Auto mated = 7807331963) message] The s ystem which generated this result transmitted reference range : 10*3/?L. The reference range was not used to interpret this result as normal/abnormal . GRAN MAT (NEUT) % 80.7 % (test code = 770-8) IMM GRAN % (test code 0.30 % = 7775980019) LYMPH % (test code = 12.4 % 736-9) MONO % (test code = 4.9 % 5905-5) EOS % (test code = 0.9 % 713-8) BASO % (test code = 0.8 % 706-2) GRAN MAT x10^3(ANC) 6.92 10*3/uL 1.88-7.09 (test code = 9299532271) IMM GRAN x10^3 (test 0.03 10*3/uL 0.00-0.06 code = 8703473754) LYMPH x10^3 (test code 1.06 10*3/uL 1.32-3.29 L = 731-0) MONO x10^3 (test code 0.42 10*3/uL 0.33-0.92 = 742-7) EOS x10^3 (test code = 0.08 10*3/uL 0.03-0.39 711-2) BASO x10^3 (test code 0.07 10*3/uL 0.01-0.07 = 704-7) Lab Interpretation Abnormal (test code = 66540-3) [facility] W/AUTO DIFF WITH [id number] 05:43:21 Test Item Value Reference Range Interpretation Comments WBC (test code = 5.7 K/UL 3.5-11.0 1001) RBC (test code = 4.32 M/UL 3.80-5.40 1002) HEMOGLOBIN (test code 11.1 G/DL 11.5-15.5 L = 1003) HEMATOCRIT (test code 35.0 % 34.0-45.0 = 1004) MCV (test code = 81.0 fL 80.0-99.0 1005) MCH (test code = 25.7 PG 25.0-33.0 1006) MCHC (test code = 31.7 G/DL 31.0-36.0 1007) RDW (test code = 15.3 % 11.5-15.0 H 1038) NEUTROPHILS (test 71.7 % code = 1008) LYMPHOCYTES (test 21.2 % code = 1010) MONOCYTES (test code 5.2 % = 1011) EOSINOPHILS (test 0.5 % code = 1012) BASOPHILS (test code 1.2 % = 1013) IMMATURE GRANULOCYTES 0.2 % (test code = 1036) NUCLEATED RBCS (test 0.0 /100 See_Comment [Autom ated code = 1065) WBC'S message] The sy stem which generated this result transmitted reference range : 0.0. The refere nce range was not u sed to interpret th is result as normal/abnormal . PLATELET COUNT (test 277 K/UL 130-400 code = 1015) ABSOLUTE NEUTROPHILS 4.10 K/UL 1.50-7.50 (test code = 1066) ABSOLUTE LYMPHOCYTES 1.21 K/UL 1.00-4.00 (test code = 1067) ABSOLUTE MONOCYTES 0.30 K/UL 0.20-1.00 (test code = 1068) ABSOLUTE EOSINOPHILS 0.03 K/UL 0.00-0.50 (test code = 1040) ABSOLUTE BASOPHILS 0.07 K/UL 0.00-0.20 (test code = 1069) ABS IMMATURE 0.01 K/UL 0.00-0.10 GRANULOCYTES (test code = 1020) ABS NUCLEATED RBCS 0.00 K/UL 0.00-0.11 (test code = 85510) HEMOGLOBIN [id number] 05:31:32 Test Item Value Reference Range Interpretation Comments HEMOGLOBIN A1c (test code = 17869) 6.4 % 4.2-5.6 H C-ARM<1 HR W IMAGES*WW*2022-01-05 15:46:44 [facility] 1970 Sex: FFluoroscopyLocation Code: [id number] HISTORY: SURGICAL PROCEDURE , Back painComments: Fluoroscopy was provided during sympathetic nerve block. Approximately fluoroscopy time was 32.6 seconds. 3 images were obtained.IMPRESSION: Fluoroscopy services provided. Please see operative report for full details.Electronically signed by: Gabriele Castaneda MD 01/05/2022 3:46 PM CDT [id number] URINE MONOCLONAL *WW*2022-01-05 11:24:00 Test Item Value Reference Range Interpretation Comments PREG UR (test code = PGU) NEGATIVE NEGATIVE CBC WITH [id number] 12:44:09 Test Item Value Reference Range Interpretation Comments [...] as normal/abnormal . HGB (test code = 10.3 g/dL 11.6-15.0 L 718-7) HCT (test code = 33.1 % 35.7-45.2 L 4544-3) MCV (test code = 86.6 fL 80.6-95.5 787-2) MCH (test code = 27.0 pg 25.9-32.8 785-6) MCHC (test code = 31.1 g/dL 31.6-35.1 L 786-4) RDW-SD (test code = 49.5 fL 39.0-49.9 43556-7) RDW-CV (test code = 15.5 % 12.0-15.5 788-0) PLT (test code = See_Comment H [Automated 777-3) message] The sy stem which generated this result transmitted reference range : 166 - 358 10*3/ ?L. The reference r nicholas was not used to interpret this result as normal/abnormal . MPV (test code = 10.3 fL 9.5-12.9 15647-1) NRBC/100 WBC (test See_Comment [Automat ed code = 0849107527) message] The system which generated this result transmitted reference range : 0.0 - 10.0 /100 WBCs. The refer ence range was not u sed to interpret th is result as normal/abnormal . NRBC x10^3 (test code See_Comment [Auto mated = 6983992263) message] The s ystem which generated this result transmitted reference range : 10*3/?L. The reference range was not used to interpret this result as normal/abnormal . GRAN MAT (NEUT) % 64.4 % (test code = 770-8) IMM GRAN % (test code 3.60 % = 5588143466) LYMPH % (test code = 23.5 % 736-9) MONO % (test code = 7.3 % 5905-5) EOS % (test code = 0.9 % 713-8) BASO % (test code = 0.3 % 706-2) GRAN MAT x10^3(ANC) 7.19 10*3/uL 1.88-7.09 H (test code = 3049637413) IMM GRAN x10^3 (test 0.40 10*3/uL 0.00-0.06 H code = 0206141316) LYMPH x10^3 (test code 2.63 10*3/uL 1.32-3.29 = 731-0) MONO x10^3 (test code 0.82 10*3/uL 0.33-0.92 = 742-7) EOS x10^3 (test code = 0.10 10*3/uL 0.03-0.39 711-2) BASO x10^3 (test code 0.03 10*3/uL 0.01-0.07 = 704-7) POLYCHROMASIA (test 2+ See_Comment [Automa britney code = 27767-1) message] The system which generated this result transmitted reference range : 2+. The referen ce range was not u sed to interpret th is result as normal/abnormal . GIANT PLATELETS (test Present See_Comment A [Auto mated code = 5908-9) message] The system which generated this result transmitted reference range : (none). The reference range was not used to interpret this result as normal/abnormal . Lab Interpretation Abnormal (test code = 21474-7) [facility] [id number] 10:06:53 Test Item Value Reference Range Interpretation Comments NT-proBNP (test code 117 pg/mL See_Comment [Autom ated = 9747014425) message] The system which generated this result transmitted reference range : <=125. The reference range was not used to interpret this result as normal/abnormal . LUCILLE (test code = LUCILLE) Biotin has been reported to cause a negative bias, interpret results relative to patient's use of biotin. Lab Interpretation Normal (test code = 78521-5) [facility]. METABOLIC PANEL (32811)2021-12-07 10:02:35 Test Item Value Reference Range Interpretation Comments NA (test code = 140 mmol/L 135-145 3100085594) K (test code = 3.7 mmol/L 3.5-5.0 5717869451) CL (test code = 104 mmol/L 98-108 4187928234) CO2 TOTAL (test code = 31 mmol/L 23-31 8437295696) AGAP (test code = 2-16 2268532295) BUN (test code = 21 mg/dL 7-23 4737072775) GLUCOSE (test code = 91 mg/dL 70-110 1547128126) CREATININE (test code = 1.00 mg/dL 0.50-1.04 5978973368) TOTAL BILI (test code = 0.3 mg/dL 0.1-1.1 4392240491) CALCIUM (test code = 8.1 mg/dL 8.6-10.6 L 0180799823) T PROTEIN (test code = 5.9 g/dL 6.3-8.2 L 2138924644) ALBUMIN (test code = 3.4 g/dL 3.5-5.0 L 8441286100) ALK PHOS (test code = 87 U/L 34-122 5247517850) ALTv (test code = 39 U/L 5-35 H 1742-6) AST(SGOT) (test code = 24 U/L 13-40 8379168756) eGFR (test code = mL/min/1.73m2 2274952954) LUCILLE (test code = LUCILLE) Association of [...] tests). Lab Interpretation Abnormal (test code = 93504-3) [facility]2022-[facility]-06 10:02:35 Test Item Value Reference Range Interpretation Comments MAGNESIUM (test code = 3180101727) 2.2 mg/dL 1.7-2.4 Lab Interpretation (test code = Normal 67263-3) [facility] Dallas[facility] B12, [id number] 22:18:47 Test Item Value Reference Range Interpretation Comments VIT B12 (test code = 979 pg/mL 240-930 H 8201444809) LUCILLE (test code = LUCILLE) Biotin has been reported to cause a positive bias, interpret results relative to patient's use of biotin. Lab Interpretation (test Abnormal code = 27910-6) [facility] DallasPROCALCITONIN2022-04-05 21:47:27 Test Item Value Reference Range Interpretation Comments Procalcitonin (test 0.05 ng/mL <0.07 code = 4427078474) LUCILLE (test code = LUCILLE) INTERPRETATION OF [...] lung abscess/empyema. For further information please refer to:[email or web address] Lab Interpretation Normal (test code = 29747-0) [facility] Dallas[facility] D, [id number] 20:41:30 Test Item Value Reference Range Interpretation Comments VIT D 25OH (test code = <13 25-80 L 62262-9) LUCILLE (test code = LUCILLE) Deficiency: <20 ng/mLInsufficiency: 20-24 ng/mLOptimal: 25-80 ng/mL Lab Interpretation (test Abnormal code = 37262-8) [facility] DallasDIFF CONSULT [id number] 20:04:06 LEUKOCYTOSIS WITH ABSOLUTE NEUTROPHILIA AND INCREASED IMMATURE GRANULOCYTES/LEFT SHIFT, CONSISTENT WITH PATIENT'S KNOWN INFECTION. NORMOCYTIC, NORMOCHROMIC ANEMIA. MILD THROMBOCYTOSIS.[facility] [id number] 18:31:30 Test Item Value Reference Range Interpretation Comments FREE T3 (test code = 8728617830) 2.49 pg/mL 2.77-5.27 L Lab Interpretation (test code = Abnormal 48818-4) [facility]-REACTIVE [id number] 17:54:11 Test Item Value Reference Range Interpretation Comments CRP (test code = 4210737974) 0.2 mg/dL <0.8 Lab Interpretation (test code = Normal 32551-6) [facility] [id number] 13:49:44 Test Item Value Reference Range Interpretation Comments FREE T4 (test code = See_Comment L [Autom ated message] 6210393554) The system Diana generated this result transmitted ref erence range: 0.78 - 2 .20 ng/dL:. The ref erence range was not u sed to interpret this result as normal/abnor mal. Lab Interpretation (test Abnormal code = 96017-7) [facility] WITH [id number] 12:20:38 Test Item Value Reference Range Interpretation Comments WBC (test code = See_Comment H [Automated 90-2) message] The system which generated this result transmit britney reference range : 4.30 - 11.10 10*3/?L. The reference range was not used to interpret this result as normal/abnormal . RBC (test code = See_Comment L [Automated 999-8) message] The system which generated this result [...] RDW-SD (test code = 48.5 fL 39.0-49.9 39324-6) RDW-CV (test code = 15.3 % 12.0-15.5 788-0) PLT (test code = See_Comment [Automated 777-3) message] The system which generated this result transmit britney reference range : 166 - 358 10*3/ ?L. The reference range was not u sed to interpret th is result as normal/abnormal . MPV (test code = 10.4 fL 9.5-12.9 65931-8) NRBC/100 WBC (test See_Comment [Automat ed code = 8814515986) message] The system which generated this result transmit britney reference range : 0.0 - 10.0 /100 WBCs. The reference range was not used to interpret this result as normal/abnormal . NRBC x10^3 (test code See_Comment [Auto mated = 3948213954) message] The system which generated this result transmit britney reference range : 10*3/?L. The reference range was not used to interpret this result as normal/abnormal . GRAN MAT (NEUT) % 74.0 % (test code = 770-8) IMM GRAN % (test code 3.20 % = 9363395873) LYMPH % (test code = 14.7 % 736-9) MONO % (test code = 7.7 % 5905-5) EOS % (test code = 0.1 % 713-8) BASO % (test code = 0.3 % 706-2) GRAN MAT x10^3(ANC) 11.18 10*3/uL 1.88-7.09 H (test code = 4209690733) IMM GRAN x10^3 (test 0.48 10*3/uL 0.00-0.06 H code = 7998500897) LYMPH x10^3 (test code 2.22 10*3/uL 1.32-3.29 = 731-0) MONO x10^3 (test code 1.17 10*3/uL 0.33-0.92 H = 742-7) EOS x10^3 (test code = <0.03 0.03-0.39 L 711-2) BASO x10^3 (test code 0.04 10*3/uL 0.01-0.07 = 704-7) Lab Interpretation Abnormal (test code = 77275-0) [facility] DallasFERRITIN [id number] 11:45:10 Test Item Value Reference Range Interpretation Comments FERRITIN (test code = 16.1 ng/mL 11.0-264.0 9245577351) LUCILLE (test code = LUCILLE) Biotin has been reported to cause a negative bias, interpret results relative to patient's use of biotin. Lab Interpretation (test Normal code = 46641-6) [facility] DallasTHYROID STIMULATING [id number] 11:41:28 Test Item Value Reference Range Interpretation Comments TSH (test code = See_Comment L [Automated message] 4688759697) The system Diana generated this result transmitted ref erence range: 0.45 - 4 .70 mIU/L. The refe rence range was not u sed to interpret this result as normal/abnor mal. Lab Interpretation (test Abnormal code = 61464-9) [facility] DallasSEDIMENTATION [id number] 11:30:34 Test Item Value Reference Range Interpretation Comments ESR (test code = See_Comment [Automated message] 2114721645) The system Diana generated this result transmitted ref erence range: 0 - 20 m m/HR. The reference r nicholas was not used to interpret this result as normal/abnor mal. Lab Interpretation (test Normal code = 95354-6) [facility] DallasTROPONIN [id number] 11:30:08 Test Item Value Reference Interpretation Comments Range TROPONIN I (test 0.023 ng/mL See_Comment [Automated code = 1030658154) message] The system which generated this result [...] biotin. Lab Interpretation Normal (test code = 17537-3) [facility]. METABOLIC PANEL (30908)2021-12-06 11:28:58 Test Item Value Reference Range Interpretation Comments NA (test code = 140 mmol/L 135-145 9087749183) K (test code = 3.1 mmol/L 3.5-5.0 L 0006570866) CL (test code = 106 mmol/L 98-108 5879625032) CO2 TOTAL (test code = 31 mmol/L 23-31 2477661672) AGAP (test code = 2-16 6893122706) BUN (test code = 24 mg/dL 7-23 H 0819385128) GLUCOSE (test code = 88 mg/dL 70-110 2444069698) CREATININE (test code = 0.95 mg/dL 0.50-1.04 0626450502) TOTAL BILI (test code = 0.3 mg/dL 0.1-1.1 8599530323) CALCIUM (test code = 8.4 mg/dL 8.6-10.6 L 8427388391) T PROTEIN (test code = 5.7 g/dL 6.3-8.2 L 7695677048) ALBUMIN (test code = 3.3 g/dL 3.5-5.0 L 1470201543) ALK PHOS (test code = 83 U/L 34-122 3669289548) ALTv (test code = 44 U/L 5-35 H 1742-6) AST(SGOT) (test code = 27 U/L 13-40 8084560963) eGFR (test code = mL/min/1.73m2 1971844457) LUCILLE (test code = LUCILLE) Association of [...] tests). Lab Interpretation Abnormal (test code = 96467-6) [facility]-TERMINAL [id number] 11:26:47 Test Item Value Reference Range Interpretation Comments NT-proBNP (test code 442 pg/mL See_Comment H [Autom ated = 0555683682) message] The system which generated this result transmitted reference range : <=125. The reference range was not used to interpret this result as normal/abnormal . LUCILLE (test code = LUCILLE) Biotin has been reported to cause a negative bias, interpret results relative to patient's use of biotin. Lab Interpretation Abnormal (test code = 17742-3) [facility] [id number] 11:19:22 Test Item Value Reference Range Interpretation Comments IRON (test code = 0686845036) 34 ug/dL 50-160 L TIBC (test code = 2627860341) 408 ug/dL 250-410 % FE SAT (test code = 2776348230) 8 % 20-50 L Lab Interpretation (test code = Abnormal 58366-3) [facility] 11:18:47 Test Item Value Reference Range Interpretation Comments MAGNESIUM (test code = 9429201084) 1.9 mg/dL 1.7-2.4 Lab Interpretation (test code = Normal 30740-1) [facility]05 11:18:02 Test Item Value Reference Range Interpretation Comments PHOSPHORUS (test code = 0447375089) 3.3 mg/dL 2.5-5.0 Lab Interpretation (test code = Normal 67935-1) [facility] [place] [facility] (09499)(TOTAL CHOLESTEROL, TRIGLYCERIDES, HDL)2021-12-06 11:09:41 Test Item Value Reference Range Interpretation Comments CHOL (test code = 208 mg/dL 120-200 H 0187364344) HDL (test code = 99 mg/dL >50 5806641717) HDLC RATIO (test code = See_Comment [Au tomated message] [id number]) The system Diana generated this result transmit britney reference range : <=4.5. The refe rence range was not u sed to interpret th is result as normal/abnormal . TRIG (test code = 172 mg/dL 30-170 H 8750154777) LDL CHOL (test code = 75 mg/dL See_Comment [Auto mated message] 69162-1) The system Diana generated this result transmit britney reference range : <=160. The refe rence range was not u sed to interpret th is result as normal/abnormal . VLDL (test code = 34 mg/dL 5-60 5416361955) Lab Interpretation (test Abnormal code = 80952-4) [facility] [id number] 11:09:21 Test Item Value Reference Range Interpretation Comments URIC ACID (test code = 8912550280) 6.1 mg/dL 2.9-6.0 H Lab Interpretation (test code = Abnormal 94351-6) [facility] [place]GLYCOSYLATED HEMOGLOBIN (A1C)2021-12-06 08:48:15 Test Item Value Reference Range Interpretation Comments HGB A1C (test code = 5.7 % 4.0-5.7 4548-4) LUCILLE (test code = LUCILLE) Reference RangesNormal: <5.7%Prediabetes: 5.7 - 6.4%Diabetes: > 6.5% Lab Interpretation (test Normal code = 44526-5) [facility]CB WITH [id number] 01:01:58 Test Item Value Reference Range Interpretation [...] RDW-SD (test code = 46.4 fL 39.0-49.9 86132-6) RDW-CV (test code = 15.2 % 12.0-15.5 788-0) PLT (test code = See_Comment H [Automated 777-3) message] The system which generated this result transmit britney reference range : 166 - 358 10*3/ ?L. The reference range was not u sed to interpret th is result as normal/abnormal . MPV (test code = 10.6 fL 9.5-12.9 03972-0) NRBC/100 WBC (test See_Comment [Automat ed code = 4930548000) message] The system which generated this result transmit britney reference range : 0.0 - 10.0 /100 WBCs. The reference range was not used to interpret this result as normal/abnormal . NRBC x10^3 (test code See_Comment [Auto mated = 4112602873) message] The system which generated this result transmit britney reference range : 10*3/?L. The reference range was not used to interpret this result as normal/abnormal . SEG % (test code = 83 % 33-76 H 03293-5) BAND % (test code = 4 % 0-1 H 04973-4) LYMPH % (test code = 7 % 14-54 L 31324-8) MONO % (test code = 5 % 0-4 H 89945-9) EOS % (test code = 1 % 0-3 01190-3) ANC (test code = 19.01 10*3/uL 1.88-7.09 H 753-4) TOXIC CHANGES (test Present A code = 803-7) Lab Interpretation Abnormal (test code = 81488-9) [facility] DallasTROPONIN [id number] 00:45:54 Test Item Value Reference Interpretation Comments Range TROPONIN I (test 0.022 ng/mL See_Comment [Automated code = 2687844892) message] The system which generated this result [...] biotin. Lab Interpretation Normal (test code = 96921-2) [facility] DallasN-TERMINAL [id number] 00:42:51 Test Item Value Reference Range Interpretation Comments NT-proBNP (test code 544 pg/mL See_Comment H [Autom ated = 8236927863) message] The system which generated this result transmitted reference range : <=125. The reference range was not used to interpret this result as normal/abnormal . LUCILLE (test code = LUCILLE) Biotin has been reported to cause a negative bias, interpret results relative to patient's use of biotin. Lab Interpretation Abnormal (test code = 58883-8) [facility] DallasACTIVATED PARTIAL THRMPLAS [id number] 00:36:33 Test Item Value Reference Range Interpretation Comments APTT Patient (test See_Comment L [Automat ed code = 3173-2) message] The system which generated this result transmitted reference range : 23 - 38 Seconds . The reference range was not used to interpr et this result as normal/abnormal . LUCILLE (test code = LUCILLE) The RUST patient population mean normal value for aPTT is 30 seconds. Lab Interpretation Abnormal (test code = 82469-0) [facility] DallasPROTHROMBIN TIME / [id number] 00:34:31 Test Item Value Reference Range Interpretation [...] tions. Lab Interpretation (test Normal code = 89060-4) [facility] DallasCOMP. METABOLIC PANEL (52665)2021-12-06 00:34:11 Test Item Value Reference Range Interpretation Comments NA (test code = 141 mmol/L 135-145 2258505477) K (test code = 3.9 mmol/L 3.5-5.0 1619152835) CL (test code = 104 mmol/L 98-108 7189488607) CO2 TOTAL (test code = 27 mmol/L 23-31 6631412608) AGAP (test code = 2-16 1691594871) BUN (test code = 24 mg/dL 7-23 H 7814377899) GLUCOSE (test code = 117 mg/dL 70-110 H 5275519512) CREATININE (test code = 0.96 mg/dL 0.50-1.04 2711219795) TOTAL BILI (test code = 0.4 mg/dL 0.1-1.7 8825336115) CALCIUM (test code = 8.9 mg/dL 8.6-10.6 1265332829) T PROTEIN (test code = 6.5 g/dL 6.3-8.2 8422416717) ALBUMIN (test code = 4.0 g/dL 3.5-5.0 0369895409) ALK PHOS (test code = 107 U/L 34-122 8606797556) ALTv (test code = 49 U/L 5-35 H 1742-6) AST(SGOT) (test code = 44 U/L 13-40 H 6833356173) eGFR (test code = mL/min/1.73m2 3695206280) LUCILLE (test code = LUCILLE) Association of [...] tests). Lab Interpretation Abnormal (test code = 35189-0) [facility] DallasPROCALCITONIN2022-04-04 02:29:14 Test Item Value Reference Range Interpretation Comments Procalcitonin (test 0.11 ng/mL <0.08 H code = 3251964245) LUCILLE (test code = LUCILLE) INTERPRETATION OF [...] lung abscess/empyema. For further information please refer to:[email or web address] Lab Interpretation Abnormal (test code = 17087-4) [facility] DallasLactic Acid Whole [id number] 15:26:51 Test Item Value Reference Range Interpretation Comments LACTIC ACID (test code = 2.36 mmol/L 0.50-2.20 H 7187349463) Lab Interpretation (test code = Abnormal 43049-5) [facility] with Euaydrxaxbyx4762-81-46 09:45:08 Test Item Value Reference Range Interpretation [...] RDW-SD (test code = 48.3 fL 39.0-49.9 74967-0) RDW-CV (test code = 15.2 % 12.0-15.5 788-0) PLT (test code = See_Comment [Automated 777-3) message] The system which generated this result transmit britney reference range : 166 - 358 10*3/ ?L. The reference range was not u sed to interpret th is result as normal/abnormal . MPV (test code = 10.3 fL 9.5-12.9 65334-7) NRBC/100 WBC (test See_Comment [Automat ed code = 6498961213) message] The system which generated this result transmit britney reference range : 0.0 - 10.0 /100 WBCs. The reference range was not used to interpret this result as normal/abnormal . NRBC x10^3 (test code See_Comment [Auto mated = 7853724938) message] The system which generated this result transmit britney reference range : 10*3/?L. The reference range was not used to interpret this result as normal/abnormal . GRAN MAT (NEUT) % 90.3 % (test code = 770-8) IMM GRAN % (test code 1.20 % = 7356605104) LYMPH % (test code = 5.8 % 736-9) MONO % (test code = 2.6 % 5905-5) EOS % (test code = 0.0 % 713-8) BASO % (test code = 0.1 % 706-2) GRAN MAT x10^3(ANC) 19.89 10*3/uL 1.88-7.09 H (test code = 9314473754) IMM GRAN x10^3 (test 0.27 10*3/uL 0.00-0.06 H code = 2488832742) LYMPH x10^3 (test code 1.28 10*3/uL 1.32-3.29 L = 731-0) MONO x10^3 (test code 0.57 10*3/uL 0.33-0.92 = 742-7) EOS x10^3 (test code = <0.03 0.03-0.39 L 711-2) BASO x10^3 (test code 0.03 10*3/uL 0.01-0.07 = 704-7) POLYCHROMASIA (test 2+ See_Comment [Automa britney code = 62826-7) message] The system which generated this result transmit britney reference range : 2+. The referen ce range was not u sed to interpret th is result as normal/abnormal . TOXIC CHANGES (test Present A code = 803-7) Lab Interpretation Abnormal (test code = 94547-6) [facility] Metabolic Panel (NA, K, CL, CO2, GLUCOSE, BUN, CREATININE, CA)2021-12-04 09:38:00 Test Item Value Reference Range Interpretation Comments NA (test code = 137 mmol/L 135-145 3097259790) K (test code = 3.7 mmol/L 3.5-5.0 7918349229) CL (test code = 107 mmol/L 98-108 9630944569) CO2 TOTAL (test code = 21 mmol/L 23-31 L 3999420002) AGAP (test code = 2-16 8458133030) BUN (test code = 19 mg/dL 7-23 2684324173) GLUCOSE (test code = 149 mg/dL 70-110 H 4817475638) CREATININE (test code = 1.00 mg/dL 0.50-1.04 7566663751) CALCIUM (test code = 8.8 mg/dL 8.6-10.6 1175381035) eGFR (test code = mL/min/1.73m2 2406870036) LUCILLE (test code = LUCILLE) Association of [...] tests). Lab Interpretation Abnormal (test code = 18347-1) [facility] DallasLactic Acid Whole [id number] 09:20:11 Test Item Value Reference Range Interpretation Comments LACTIC ACID (test code = 3.77 mmol/L 0.50-2.20 H 3332455950) Lab Interpretation (test code = Abnormal 98157-6) [facility] DallasURINALYSIS2022-04-02 23:35:41 Test Item Value Reference Range Interpretation Comments APPEARANCE (test code = Clear Clear 4051572826) COLOR (test code = Yellow Yellow 5511851435) PH (test code = 4.8-8.0 5353131098) SP GRAVITY (test code = 1.003-1.030 9774584693) GLU U QUAL (test code = Normal Normal 8772244871) BLOOD (test code = Negative Negative Interfere nce from 8847044604) ascorbic acid m ay cause false neg ative results. KETONES (test code = Negative Negative 2875536333) PROTEIN (test code = Negative Negative 2887-8) UROBILIN (test code = Normal Normal 6643891750) BILIRUBIN (test code = Negative Negative 1679875564) NITRITE (test code = Negative Negative 8302747427) LEUK KOJO (test code = Negative Negative 4907671459) RBC/HPF (test code = See_Comment [Autom ated message] 3261124792) The system Diana generated this result transmitted ref erence range: 0 - 3 HP F. The reference range was not used to int erpret this result as normal/abnormal . WBC/HPF (test code = See_Comment [Autom ated message] 0626434947) The system Diana generated this result transmitted ref erence range: 0 - 5 HP F. The reference range was not used to int erpret this result as normal/abnormal . BACTERIA (test code = Negative Negative 2203558134) SQ EPITH (test code = See_Comment H [Auto mated message] 7291642475) The system Diana generated this result transmitted ref erence range: <=2 HPF. The reference range was not used to int erpret this result as normal/abnormal . Lab Interpretation (test Abnormal code = 19137-1) [facility] WITH [id number] 21:54:52 Test Item Value Reference Range Interpretation [...] RDW-SD (test code = 48.1 fL 39.0-49.9 68416-1) RDW-CV (test code = 15.3 % 12.0-15.5 788-0) PLT (test code = See_Comment [Automated 777-3) message] The system which generated this result transmit britney reference range : 166 - 358 10*3/ ?L. The reference range was not u sed to interpret th is result as normal/abnormal . MPV (test code = 10.1 fL 9.5-12.9 69698-1) NRBC/100 WBC (test See_Comment [Automat ed code = 8103337127) message] The system which generated this result transmit britney reference range : 0.0 - 10.0 /100 WBCs. The reference range was not used to interpret this result as normal/abnormal . NRBC x10^3 (test code See_Comment [Auto mated = 5032148181) message] The system which generated this result transmit britney reference range : 10*3/?L. The reference range was not used to interpret this result as normal/abnormal . GRAN MAT (NEUT) % 90.9 % (test code = 770-8) IMM GRAN % (test code 0.80 % = 1837421026) LYMPH % (test code = 6.4 % 736-9) MONO % (test code = 1.8 % 5905-5) EOS % (test code = 0.0 % 713-8) BASO % (test code = 0.1 % 706-2) GRAN MAT x10^3(ANC) 17.07 10*3/uL 1.88-7.09 H (test code = 9328217436) IMM GRAN x10^3 (test 0.15 10*3/uL 0.00-0.06 H code = 5166141961) LYMPH x10^3 (test code 1.20 10*3/uL 1.32-3.29 L = 731-0) MONO x10^3 (test code 0.34 10*3/uL 0.33-0.92 = 742-7) EOS x10^3 (test code = <0.03 0.03-0.39 L 711-2) BASO x10^3 (test code <0.03 0.01-0.07 = 704-7) TOXIC CHANGES (test Present A code = 803-7) Lab Interpretation Abnormal (test code = 32850-0) [facility] DallasN-TERMINAL [id number] 21:47:46 Test Item Value Reference Range Interpretation Comments NT-proBNP (test code 662 pg/mL See_Comment H [Autom ated = 1874107248) message] The system which generated this result transmitted reference range : <=125. The reference range was not used to interpret this result as normal/abnormal . LUCILLE (test code = LUCILLE) Biotin has been reported to cause a negative bias, interpret results relative to patient's use of biotin. Lab Interpretation Abnormal (test code = 66429-2) [facility] DallasTROPONIN [id number] 21:47:46 Test Item Value Reference Interpretation Comments Range TROPONIN I (test 0.007 ng/mL See_Comment [Automated code = 1188480260) message] The system which generated this result [...] biotin. Lab Interpretation Normal (test code = 97576-4) [facility] DallasAMYLASE2022-04-02 21:36:08 Test Item Value Reference Range Interpretation Comments KIERA (test code = 4896497586) 66 U/L 35-110 Lab Interpretation (test code = Normal 26336-2) [facility] DallasLIPASE2022-04-02 21:36:08 Test Item Value Reference Range Interpretation Comments LIPASE (test code = 1391114616) 83 U/L 0-220 Lab Interpretation (test code = Normal 54169-6) [facility] DallasCOMP. METABOLIC PANEL (41408)2021-12-03 21:36:08 Test Item Value Reference Range Interpretation Comments NA (test code = 137 mmol/L 135-145 2684174246) K (test code = 4.5 mmol/L 3.5-5.0 3349791392) CL (test code = 107 mmol/L 98-108 7309545641) CO2 TOTAL (test code = 20 mmol/L 23-31 L 5877244754) AGAP (test code = 2-16 6207546734) BUN (test code = 20 mg/dL 7-23 8513679973) GLUCOSE (test code = 140 mg/dL 70-110 H 4122716174) CREATININE (test code = 0.97 mg/dL 0.50-1.04 4536976152) TOTAL BILI (test code = 0.3 mg/dL 0.1-1.1 5004600417) CALCIUM (test code = 8.9 mg/dL 8.6-10.6 8107915458) T PROTEIN (test code = 7.1 g/dL 6.3-8.2 2888939166) ALBUMIN (test code = 4.3 g/dL 3.5-5.0 9392871695) ALK PHOS (test code = 97 U/L 34-122 8191230187) ALTv (test code = 56 U/L 5-35 H 2-6) AST(SGOT) (test code = 38 U/L 13-40 2576424838) eGFR (test code = mL/min/1.73m2 9919988491) LUCILLE (test code = LUCILLE) Association of [...] tests). Lab Interpretation Abnormal (test code = 83005-4) [facility] DallasAC ABG + LACTIC [id number] 21:21:29 Test Item Value Reference Range Interpretation Comments PH (test code = 2) 7.35-7.45 PCO2 (test code = See_Comment L [Automat ed 1890581061) message] The sy stem which generated this result transmitted reference range : 35 - 45 mmHg. The reference range was not used to interpret this result as normal/abnormal . PO2 (test code = See_Comment [Automated 1011399004) message] The sy stem which generated this result transmitted reference range : 80 - 100 mmHg. The reference range was not used to interpret this result as normal/abnormal . HCO3 (test code = See_Comment [Automate d 7648032223) message] The sy stem which generated this result transmitted reference range : 22 - 26 mEq/L. The reference range was not used to interpret this result as normal/abnormal . BE (test code = See_Comment [Automated 5173995348) message] The sy stem which generated this result transmitted reference range : -3.0 - 3.0 mEq/ L. The reference r nicholas was not used to interpret this result as normal/abnormal . LACTIC ACID (test code 2.96 mmol/L 0.50-2.20 H = 7170388860) Lab Interpretation Abnormal (test code = 81078-8) [facility] DallasBasic Metabolic Panel (NA, K, CL, CO2, GLUCOSE, BUN, CREATININE, CA)2021-11-10 09:40:55 Test Item Value Reference Range Interpretation Comments NA (test code = 138 mmol/L 135-145 3555576748) K (test code = 3.4 mmol/L 3.5-5.0 L 4764770502) CL (test code = 107 mmol/L 98-108 9340431276) CO2 TOTAL (test code = 25 mmol/L 23-31 0178660934) AGAP (test code = 2-16 5295338269) BUN (test code = 15 mg/dL 7-23 8055232968) GLUCOSE (test code = 110 mg/dL 70-110 5659624628) CREATININE (test code = 0.81 mg/dL 0.50-1.04 8944120858) CALCIUM (test code = 7.8 mg/dL 8.6-10.6 L 2598523103) eGFR (test code = mL/min/1.73m2 7652659753) LUCILLE (test code = LUCILLE) Association of [...] tests). Lab Interpretation Abnormal (test code = 91119-8) [facility] with Hmtkkybwmiyl4563-68-00 09:25:30 Test Item Value Reference Range Interpretation [...] (test code = 57.2 fL 39.0-49.9 H 22329-0) RDW-CV (test code = 17.0 % 12.0-15.5 H 788-0) PLT (test code = See_Comment [Automated 777-3) message] The sy stem which generated this result transmitted reference range : 166 - 358 10*3/ ?L. The reference r nicholas was not used to interpret this result as normal/abnormal . MPV (test code = 9.2 fL 9.5-12.9 L 34668-4) NRBC/100 WBC (test See_Comment [Automat ed code = 1020722369) message] The system which generated this result transmitted reference range : 0.0 - 10.0 /100 WBCs. The refer ence range was not u sed to interpret th is result as normal/abnormal . NRBC x10^3 (test code See_Comment [Auto mated = 7568476784) message] The s ystem which generated this result transmitted reference range : 10*3/?L. The reference range was not used to interpret this result as normal/abnormal . GRAN MAT (NEUT) % 72.2 % (test code = 770-8) IMM GRAN % (test code 1.30 % = 0285038514) LYMPH % (test code = 18.9 % 736-9) MONO % (test code = 6.3 % 5905-5) EOS % (test code = 1.2 % 713-8) BASO % (test code = 0.1 % 706-2) GRAN MAT x10^3(ANC) 8.06 10*3/uL 1.88-7.09 H (test code = 9930207138) IMM GRAN x10^3 (test 0.14 10*3/uL 0.00-0.06 H code = 8948672461) LYMPH x10^3 (test code 2.10 10*3/uL 1.32-3.29 = 731-0) MONO x10^3 (test code 0.70 10*3/uL 0.33-0.92 = 742-7) EOS x10^3 (test code = 0.13 10*3/uL 0.03-0.39 711-2) BASO x10^3 (test code <0.03 0.01-0.07 = 704-7) Lab Interpretation Abnormal (test code = 21589-8) [facility] DallasLactic Acid Whole [id number] 09:22:39 Test Item Value Reference Range Interpretation Comments LACTIC ACID (test code = 3.32 mmol/L 0.50-2.20 H 4837736214) Lab Interpretation (test code = Abnormal 97424-7) [facility] DallasACTIVATED PARTIAL THRMPLAS [id number] 02:13:42 Test Item Value Reference Range Interpretation Comments APTT Patient (test code See_Comment L [Au tomated message] = 3173-2) The system [facility] h generated this result transmitted ref erence range: 26 - 36 Seconds. The reference range was not used to int erpret this result as normal/abnormal . Lab Interpretation (test Abnormal code = 90772-5) [facility] DallasPROTHROMBIN TIME / [id number] 02:13:42 Test Item Value Reference Range Interpretation Comments PROTIME PATIENT (test See_Comment [Auto mated message] code = 5964-2) The system [facility] generated this result transmitted ref erence range: 10.1 - 1 2.6 Seconds. The re ference range was not u sed to interpret this result as normal/abnor mal. INR (test code = 6301-6) Nor mal INR <1.1; Warfarin Therap eutic range 2.0 to 3. 0 or 2.5 to 3.5, dep ending upon the indica tions. Lab Interpretation (test Normal code = 47368-8) [facility] DallasD-[id number] 02:13:42 Test Item Value Reference Interpretation Comments Range D-DIMER (test code = See_Comment H [Autom ated 1307078024) message] The system which generated this result [...] diagnosis. Lab Interpretation Abnormal (test code = 95097-3) [facility] DallasCOMP. METABOLIC PANEL (27688)2021-11-10 01:57:17 Test Item Value Reference Range Interpretation Comments NA (test code = 139 mmol/L 135-145 0173120225) K (test code = 3.9 mmol/L 3.5-5.0 9919771649) CL (test code = 106 mmol/L 98-108 4408683517) CO2 TOTAL (test code = 27 mmol/L 23-31 3159079379) AGAP (test code = 2-16 8493698978) BUN (test code = 17 mg/dL 7-23 3970628987) GLUCOSE (test code = 135 mg/dL 70-110 H 5268319460) CREATININE (test code = 0.72 mg/dL 0.50-1.04 9505046147) TOTAL BILI (test code = 0.3 mg/dL 0.1-1.3 1053215994) CALCIUM (test code = 8.1 mg/dL 8.6-10.6 L 0372562607) T PROTEIN (test code = 5.6 g/dL 6.3-8.2 L 4861000450) ALBUMIN (test code = 3.3 g/dL 3.5-5.0 L 4797036031) ALK PHOS (test code = 126 U/L 34-122 H 8189731163) ALTv (test code = 47 U/L 5-35 H 1742-6) AST(SGOT) (test code = 27 U/L 13-40 5057048245) eGFR (test code = mL/min/1.73m2 1525495006) LUCILLE (test code = LUCILLE) Association of [...] tests). Lab Interpretation Abnormal (test code = 28289-1) [facility] Dallas[facility] ABG + LACTIC [id number] 01:51:44 Test Item Value Reference Range Interpretation Comments PH (test code = 2) 7.35-7.45 PCO2 (test code = See_Comment [Automat ed 1084754789) message] The sy stem which generated this result transmitted reference range : 35 - 45 mmHg. The reference range was not used to interpret this result as normal/abnormal . PO2 (test code = See_Comment L [Automated 7151834033) message] The sy stem which generated this result transmitted reference range : 80 - 100 mmHg. The reference range was not used to interpret this result as normal/abnormal . HCO3 (test code = See_Comment [Automate d 0381553097) message] The sy stem which generated this result transmitted reference range : 22 - 26 mEq/L. The reference range was not used to interpret this result as normal/abnormal . BE (test code = See_Comment [Automated 3633001666) message] The sy stem which generated this result transmitted reference range : -3.0 - 3.0 mEq/ L. The reference r nicholas was not used to interpret this result as normal/abnormal . LACTIC ACID (test code 4.25 mmol/L 0.50-2.20 H QUES = 7288765846) Lab Interpretation Abnormal (test code = 06208-8) [facility] WITH [id number] 01:50:58 Test Item Value Reference Range Interpretation [...] (test code = 55.7 fL 39.0-49.9 H 03352-9) RDW-CV (test code = 16.8 % 12.0-15.5 H 788-0) PLT (test code = See_Comment [Automated 777-3) message] The system which generated this result transmit britney reference range : 166 - 358 10*3/ ?L. The reference range was not u sed to interpret th is result as normal/abnormal . MPV (test code = 9.5 fL 9.5-12.9 99177-2) NRBC/100 WBC (test See_Comment [Automat ed code = 6796262979) message] The system which generated this result transmit britney reference range : 0.0 - 10.0 /100 WBCs. The reference range was not used to interpret this result as normal/abnormal . NRBC x10^3 (test code <0.01 See_Comment [Auto mated = 3475789062) message] The system which generated this result transmit britney reference range : 10*3/?L. The reference range was not used to interpret this result as normal/abnormal . GRAN MAT (NEUT) % 84.7 % (test code = 770-8) IMM GRAN % (test code 0.80 % = 7286804776) LYMPH % (test code = 10.9 % 736-9) MONO % (test code = 3.4 % 5905-5) EOS % (test code = 0.1 % 713-8) BASO % (test code = 0.1 % 706-2) GRAN MAT x10^3(ANC) 11.84 10*3/uL 1.88-7.09 H (test code = 7245715336) IMM GRAN x10^3 (test 0.11 10*3/uL 0.00-0.06 H code = 6824473685) LYMPH x10^3 (test code 1.52 10*3/uL 1.32-3.29 = 731-0) MONO x10^3 (test code 0.47 10*3/uL 0.33-0.92 = 742-7) EOS x10^3 (test code = <0.03 0.03-0.39 L 711-2) BASO x10^3 (test code <0.03 0.01-0.07 = 704-7) Lab Interpretation Abnormal (test code = 82704-6) [facility] DallasMOLLYO [id number] 21:38:57 Test Item Value Reference Range Interpretation Comments Case Report (test Non-Gynecologic Cytology code = 3686053034) ?Case: [id number] ?Authorizing Provider: ?Anaya Kline MD ? ? Collected: ? 10/21/2021 1249 ?Ordering Location: ? ? [facility] ?Received: ?10/21/2021 1257 ? Medicine/Surgery [facility] ?Pathologist: ? Glenna Alejandra MD ? Specimen: ? ?LUNG, LEFT UPPER LOBE, BRONCHOALVEOLAR LAVAGE ? Final Diagnosis (test v2qrjHNzHHZqw5bjPMEmlCLl code = 9024226499) ZzEwMzNcZnRuYmpcdWMxIHtc cnRmMVxlcGljOTYwMVxhbnNp RUVgkBDwR2EnkjjiZDmnXM1c HP1nmPrquOEyhRWpJBBqXqKq c9ddd670uTCfz5teHBGZdzvw cTo6sUvmJ54qq3T8SdpsF5mo ZWQwXGdyZWVuMFxibHVlMDt9 XHBhcGVydzEyMjQwXHBhcGVy oZJ3EQFfOG1nepvbRCiuFNpw LDDodcX6DIDimBPrE6WsDUKk VZ6gzwipPXB0DHkfSVNaAVE4 DuDgEIMyj5Stsit8KtDsvHSf ZFxwbGFpblxmczIwXHBhclxi IEExLiAgTFVORywgTEVGVCBV ZXNCKrGDP1ICXzXAIb7HV6iC DClYDM4EIJZmCMBLEDvVKzvp NNQdNwJjYOYoHnhvVuIpUw5y LLZOZHzQTR3ALOLOXSlOTEjK PW6AOTMEYQGvIHguUXQjY9LO KTJAOR4PWaFtQLHrlgkpUfMe uTJikVdtqhRqYPfso5JeY3Ww MjAwMFxhbnNpXGRlZmxhbmcx CCMmLBC9xnFgSBKfHLnmXEEx EEqxNt6mmZPewUtuPuDgGNIn r9gmxuNSPLdfPvSxE885OKHq KYjzv0cyt1YrOXOffTPuz0L1 WPZSgnwwjFj2r1ixOhAoFnR1 sWClASjtL0cthrRhnKQiQ4Kh tZTjoXz5vAjuA26jv7P2Wqqk F8ifWVQsWPNsN2MqXO4xPZQx Lvo3THS9AVZ0TVDmNMYhZ8Ua IS3qJMLuaGEtRGy8h2iycZvl SXOoMYL7k8jqAGlhebP9WJ6a hy5iiQp8h2ptlcWrEBJkAOUm dTZDIVVdJ6UiuQxhCy7czBx4 lYvnOpttESZ6Isc8RV6rai28 qmu8sDqyGTBkuxhkMoO4BPbb PSQapxufFBk8ATmfNRYnvGM3 TMWhvISnN8PtMDIuUC6cykk1 LLC5VOgcZKXvEnC0LCTmlDUk UWFsbKhtXUlxm250JTG3AePe LG6oE6Nod2F3vD3ioTFiVKUu dAToOjCjPNGqck7nxKGwLBxw k7StCOH4jpP2aOWmaGLsTPHz AO51Iwuvq4XiQdajBNY8KZWe dgWmr3Fpc8veYhZlhcMhQ6rc D9EhNZBgBOWnWBAeJoSizrRx y3Zrj2TodZHnyRe0o7jqYPRx DKVjpUfmu0zrHIW7GCSwD6T1 sACrm6gzCPxhOICdaUI5tyT1 NROllXLaC8QioB9qKMVkIJ8q kzh3i5ojQQU4QPxoUAXuSyQ7 goL7FKVlmGGlAISfiSiwGNtn g520IYZ7OfFvNAZkb0QgL7Ir uQapD95ljOhxS23ySPDkhMpp sO4evFfqhV6bAyTlObPyTYnz bFxwbGFpblxmMVxmczIwXGxh gzepLGOtJJlvH7fxZxEqCUFt fImqCGlgm6CcFCRhCJXjIfiv czIwXHBhciBJIGhhdmUgcGVy z78oIPnjtPEqVIZcNThqADCq aYppt7ByY2ozQA9wU5XbuBUp wzMdegEkOLkwOLZtt3e5kADq yGbuc8UzlDKwWH23dvBgHRNv CGE9AOCuy4tzNR34aunuLhUj gM71naEyceTaAWLwj8lvG1em tZAdi0Tij5LbvpJaROtie7Kc UC7zuFActxguwIX5AZCcqHSx oaFuknP7nGuaREXmmJ4feJ5u aRosqB4kNjArAuCkZYieTB2v WRFoM6exgGZkLKQeELCvQ7fk XdHmbI2cqXppVymrptG3OVNh cn19 Final Diagnosis i1lraFTvURNhzQE9EyVxEDOs Comment (test code = a5whf8PieFPcdJCzEVoqhLHv [id number]) yqMnai66iLW6gV32DF0jYXVq ZmU9TUSwnfR8Drv6FCFvZQCh gZAiV573q1oeq0qbsfSqbMB0 SGRdCJBvV3LxLY6iRJKvlKHh D70cfQYuTAK0ETIuLNHtyOBu MCMaUSC5HKXnqUPkM3ccYYDa YU4qjdypGUblSImqLOZkoLG6 EBCtwCUiE7KvLAEmFSpdTFOm oxv3UuUnLd8ulNHjcExzVGpu QMXhMKTuWPsyFNBdLtKcF53m BZRcRETcc3vhsR3ctRi0GHXy l41lbV1cBTWqzNztaZwseMFr MLhueuTfdyWnHkE5MBPajbNq pLMkMU4uO6YhgYusZ3WlZvXE POGvWJjbe6SvKE6lTMG0xEHx LgNovbR9mC6zpAUohwUcEEHd HcUdQ2HsZU3sCR4yxTiueuGr dCBjZWxscyBpZGVudGlmaWVk WuykWLIlX9VePIAjon3= Clinical Information 1. Pneumonia / covid / (test code = SARS [id number]) Gross Description j9ffxFXlJECwkND0GpYsADCg (test code = v4swd5MzaKVdsJUvPLogzOSp 1544794973) hyKhja36fVN2lD52TU9dUONe FrI1ITPwrkD7Asy6GKPcSOQt vOUnW494x3ipq3gdmtAedRM3 DDOwXGObZ7HfXE1uQNTlhRUg A50snIQiJGC0BSAiPIDltUIg UYYdSAU5FALbjIPeE3gaVVLl SH0nnivmXFkdHEniOBMrbVA4 LZOpsLWbJ5OxOPVhLFlbGZHh wpa0WxDvPg3woEAoqTliKPkc WCZlw4fqWQRthAKmHXT9SGdv iSTiZYDwJWWmDMx1LNLcPZbo iSMvXV0toDgpNovopRtmd4Gx dCBcXGlkIDUxMDAyIFxcZGIg Z8TMHFPnChOgEdx9IMFsABu4 UVa6XK7RRwCoPCYhOgf0RGVc NpYxZMo4FWfeJV4HOML5CoC0 ILFdSwquHDQxXcJmQMc7KDFh XFxmbCBcXGYgQXJpYWwgXFxm zuUrQTItQT3kzSqojGJejmqs czIwXHBhclxmczIyXHBhciBB PJ0zVWsLBerwCHzAMuWzCSIS BKAaFM9MGOdwJqGMIpHVP2KP VkVPTEFSIExBVkFHRVxwYXJc NbDgTVayCiWfSqZqSZv2LQNt NwNky9jsfOOzV6UemnDfEGPz vCVyAUK4CVDhQ5Tub2AcY6uu KXUqPae7mOJezuZuIIz6PKJy ItYmy7otgMWqZTTsJQPanuMv BSSep2vjVYLxQOiJaILtf0Mn slVrsdBqYKDtaMtdkxI8BVHw Hp7oKJ4qd4LtkYDkrdTfEPGR FYKagpzjq4gau9Xvw2RtjB6x ZClcZnMyMlxjZjAgIHtcZXBp C5CnS2IhccM0g9tcmLywh9Gs vFSfCD1pbDXydP== Disclaimer (test code f8klzIDsSPFia5icESKqaVBg = [id number]) ZzEwMzNcZnRuYmpcdWMxIHtc vyPgPVzye5ZzW2PfNyJfUQyx bnNpXGRlZmxhbmcxMDMzXGZ0 nxAfFYWdRPxuZWRfNUgoAe5k yYGcvXsfXtVkIXDtc2cvhmTH FAcvPhRcK822CZQuWUyti1bx a1FcHNEkjAStd0T0TCQVkhas lNy5nRqpC13vq7Z8WmkhK2hk SEXfPXGbN0GuIH0fOFEzGkl5 ZGB4VYL7LAQcFMJkG2YzHP7p YIJpjYXdQCf7i0juwAarDPDs CVT8p6hvWFuaihFkCP2xit0u vIr0i9cplwQgIHAaOGLwnBCV DIAmZ7SjkTkhKt8mgUa5iAmy DwnqWGE2Kcc1PJ8aoc74ugs5 bVevEBUcikioUrR6TVdjKZTq yrirYMs2FWnpJOZhdSD9EJIl dTPbD0VqDPCfIE6qdex9SYU2 CIhqXHLkEyQ7XIHdmMXwUTFf mCdaWGtir356FGW2FfLfUZ7a T8Qqu9K2pJ3adCWaQKTwaHQb KqVmWLQkkw8mlUYnCVcuu1Ry DEQ8qeK6tZBvzZVlNADtSY65 Dlzhj7ZnVkcih6DgY97mcTX6 BXeie3ciRO9tGqO1tfQnWHhx w5jqoX6pBbS9DDfwXR4vFJ0k YMRedK6tichaXTAsGbFxuemb GZUufDcreqJgSn7pbVgsMOK5 RXcsD5vtgG0bXhZ2WZkcY5wg yD1dTHq4KPdnxHE2IOYmjQ6z DT0oaobfo1yiJPxjQAfnHUQb tpN4miW9SBAbyKOoD8IgxC2m EGMgKK6xqrcrz7nyVGJ5MTyq MILyHAZ5KiKgWTXxq5Dtxfz5 SxHao6AqsFXaKZonM00li592 AVEpzgUnS8tfqQPjhrxxnETz swnuIYwqxqU3BWRrpjZoj8Ts MECjGKA8QXndEEndzBFrMSTu kOqll9xaC0NzaJUfEBLvCRds XGYxXGZzMjBcbGFuZzEwMzNc aGljaFxmMVxkYmNoXGYxXGxv Q5yxLaVdE5FhGZFeUyJtiEVv Q2shHXmwllReBGPmsvVfkWR7 UCcdJ2f3VXOqecDcqFl5beJd CzXuROWkEQB2IBcluNYvAQBk h3ZmqosdxXYuUe2qtVSoAUGr xK2bAXCzTGWkEBdaXC4psAa8 GOGKpDTftBEjGoXKPCCgFC94 ssGoSNMPiaoau6C4ROdfUNXo g7TrwCGeS1khs2ThQHGsk69c GX6aj0F7l5lgJHA7CJ0iv6Jt XOKtnBEmrQDmEMGhm1Lqmivo c8DlCSNclsLcc4LhHGPkvrHh iIGdXDKjioYpqz4krhPjJSTk AARoV2CwsaqhqCtpnmNwIIVo gu8aisNrJLG8ELWNVUZbKDSe o0SdaB6byKKCHMF2fNWtgp5f clIRzDQvRJWjiu85WXPtGQ9y Q6svQBNzDDBaxyAjrAWbz1Mv NKPehOC1oSAzHQ9ROuHAo62h IGFuZCBEcnVnIEFkbWluaXN0 wcE1uW4rQRzFZVEdJty+IFRo DMESXATyWH1iuvIqj0VivoPj xWylSRLspMHnj8ClnCVfj8Rz oQfdu8GowHHfvIGpFE4jAKQt clxwYXIgVVRNQiBMYWJvcmF0 u5IeLJJwIUHzBAK2oYyrmld0 TNBwwF7vSDKvS6jcecrkSZla XPKrc5BxnV2utFAYaYUlm8Io kIDdsBEUaVBtQT9jfiVrRPcV CFoZPDB2jrVyCSBjn2EvQHlo E5gkS69meItcbIs1oGA2DGQ6 uU8oTon+IFxwYXJccGFyIEFw oUDqyHNrIXAueYgwgrMxX2Mh cpBueO3afBMmobDzCW3uSW8i U5C3zFJbHLWgzbZky5hoDTet dmUgYmVlbiByZXZpZXdlZCBm x7BdQVahQCO2QJjpvpUlujPz dWRpbmcgSCZFLCBTcGVjaWFs KMX2FHyywfOfweIjKW0qhC0j xLsqgX1qnJZtbOU9ffiiLVWr XZPsjTyeXZVnXE1nbNQhFCYf vvINaFdxmHGzpC6tC0JuUGKt RESmvq8xHBDfvU0nNKazd2Nt nexpIPPoTLOnGMNnsxHvxa3z ROPmxNRGAI4DKAgxbUAkc9Ym ksYjH9dIISM8HZRwVhRbDtgn AMHxxQJhmXKiPDZwek60OPOv oN6suAsfSSVvfT8ijB1gqCac cW7bTeSzRaJiPGhfDN9yVNAj H0ekbOVkSNOgBOZtM4cxIoIz qQ5yuMosKZxpCkEpFtPcJTqj YXJ9fQ== Embedded Images (test code = 2525054874) [facility]CLE[facility] ANTIBODY [id number] 20:07:20 Test Item Value Reference Range Interpretation Comments SHIRA (test code = Negative Negative 6404774791) LUCILLE (test code = LUCILLE) Negative - [...] separately. Lab Interpretation (test Normal code = 84958-9) [facility] METABOLIC PANEL (NA, K, CL, CO2, GLUCOSE, BUN, CREATININE, CA)2021-10-24 13:05:02 Test Item Value Reference Range Interpretation Comments NA (test code = 134 mmol/L 135-145 L 7202768041) K (test code = 4.5 mmol/L 3.5-5.0 9343282405) CL (test code = 99 mmol/L 98-108 2353940245) CO2 TOTAL (test code = 30 mmol/L 23-31 2615687800) AGAP (test code = 2-16 1881163709) BUN (test code = 23 mg/dL 7-23 8889703356) GLUCOSE (test code = 118 mg/dL 70-110 H 3964079056) CREATININE (test code = 0.71 mg/dL 0.50-1.04 3445217942) CALCIUM (test code = 8.2 mg/dL 8.6-10.6 L 4028803133) eGFR (test code = mL/min/1.73m2 6805600365) LUCILLE (test code = LUCILLE) Association of [...] tests). Lab Interpretation Abnormal (test code = 13903-0) [facility] METABOLIC PANEL (NA, K, CL, CO2, GLUCOSE, BUN, CREATININE, CA)2021-10-24 13:05:02 Test Item Value Reference Range Interpretation Comments NA (test code = 134 mmol/L 135-145 L 7115320705) K (test code = 4.5 mmol/L 3.5-5.0 3305204492) CL (test code = 99 mmol/L 98-108 4304644841) CO2 TOTAL (test code = 30 mmol/L 23-31 9688266006) AGAP (test code = 2-16 7021561028) BUN (test code = 23 mg/dL 7-23 4742978114) GLUCOSE (test code = 118 mg/dL 70-110 H 8443330814) CREATININE (test code = 0.71 mg/dL 0.50-1.04 6696253925) CALCIUM (test code = 8.2 mg/dL 8.6-10.6 L 7906026464) eGFR (test code = mL/min/1.73m2 8314570544) LUCILLE (test code = LUCILLE) Association of [...] tests). Lab Interpretation Abnormal (test code = 66669-4) [facility] WITHOUT [id number] 12:51:39 Test Item Value Reference Range Interpretation Comments WBC (test code = 6690-2) See_Comment H [A utomated message] The system [employer] generated this result transmit britney reference range : 4.30 - 11.10 10*3/?L. The reference range was not used to interpret this result as normal/abnormal . RBC (test code = 789-8) See_Comment [Au tomated message] The system [employer] generated this result transmit britney reference range [...] See_Comment H [Au tomated message] The system [employer] generated this result transmit britney reference range : 166 - 358 10*3/?L. The reference range was not used to interpret this result as normal/abnormal . MPV (test code = 10.1 fL 9.5-12.9 07039-9) RDW-CV (test code = 14.2 % 12.0-15.5 788-0) RDW-SD (test code = 43.8 fL 39.0-49.9 18182-3) NRBC x10^3 (test code = See_Comment [Au tomated message] 3090148897) The system [employer] generated this result transmit britney reference range : 10*3/?L. The reference range was not used to interpret this result as normal/abnormal . NRBC/100 WBC (test code See_Comment [Au tomated message] = 9552051004) [facility] this result transmit britney reference range : 0.0 - 10.0 /100 WBC s. The reference r nicholas was not used to interpret this result as normal/abnormal . IPF % (test code = 0868692633) Lab Interpretation (test Abnormal code = 66522-2) [facility] WITHOUT [id number] 12:51:39 Test Item Value Reference Range Interpretation Comments WBC (test code = 6690-2) See_Comment H [A utomated message] The system [employer] generated this result transmit britney reference range : 4.30 - 11.10 10*3/?L. The reference range was not used to interpret this result as normal/abnormal . RBC (test code = 789-8) See_Comment [Au tomated message] The system [employer] generated this result transmit britney reference range [...] See_Comment H [Au tomated message] The system [employer] generated this result transmit britney reference range : 166 - 358 10*3/?L. The reference range was not used to interpret this result as normal/abnormal . MPV (test code = 10.1 fL 9.5-12.9 73966-1) RDW-CV (test code = 14.2 % 12.0-15.5 788-0) RDW-SD (test code = 43.8 fL 39.0-49.9 68669-2) NRBC x10^3 (test code = See_Comment [Au tomated message] 7143742857) The system [employer] generated this result transmit britney reference range : 10*3/?L. The reference range was not used to interpret this result as normal/abnormal . NRBC/100 WBC (test code See_Comment [Au tomated message] = 6328020015) The system [employer] generated this result transmit britney reference range : 0.0 - 10.0 /100 WBC s. The reference r nicholas was not used to interpret this result as normal/abnormal . IPF % (test code = 6736840540) Lab Interpretation (test Abnormal code = 77183-7) [facility]MYCO[facility]CTERIUM TUBERCULOSIS COMPLEX PCR 2021-10-23 16:23:29 Test Item Value Reference Range Interpretation Comments Mycobacterium Negative Negative tuberculosis DNA (test code = 67009-5) LUCILLE (test code = LUCILLE) Method performance specifications have not been established for specimens other than SPUTUM. Results for other tested specimen types should be interpreted based on clinical context. Lab Interpretation Normal (test code = 08858-0) [facility]MYCOBACTERIUM TUBERCULOSIS COMPLEX PCR 2021-10-23 16:23:29 Test Item Value Reference Range Interpretation Comments Mycobacterium Negative Negative tuberculosis DNA (test code = 48002-8) LUCILLE (test code = LUCILLE) Method performance specifications have not been established for specimens other than SPUTUM. Results for other tested specimen types should be interpreted based on clinical context. Lab Interpretation Normal (test code = 10347-0) [facility]IR[facility] PANEL BY [id number] 20:36:40 Test Item Value Reference Range Interpretation Comments Adenovirus (test code = Negative Negative 39763-7) Coronavirus HKU1 (test Negative Negative code = 13466-4) Coronavirus NL63 (test Negative Negative code = 55227-1) Coronavirus 229E (test Negative Negative code = 56823-5) Coronavirus OC43 (test Negative Negative code = 51859-1) Human Metapneumovirus Negative Negative (test code = 53087-8) Human Negative Negative Rhinovirus/Enterovirus (test code = 89510-1) Influenza A (test code = Negative Negative 41000-8) Influenza B (test code = Negative Negative 29128-5) Parainfluenza Virus 1 Negative Negative (test code = 61897-4) Parainfluenza Virus 2 Negative Negative (test code = 70443-8) Parainfluenza Virus 3 Negative Negative (test code = 96114-5) Parainfluenza Virus 4 Negative Negative (test code = 20202-3) Respiratory Syncytial Negative Negative Virus (test code = 66576-1) Bordetella parapertussis Negative Negative (test code = 38725-2) Bordetella pertussis Negative Negative (test code = 38206-7) Chlamydia pneumoniae Negative Negative (test code = 37681-3) Mycoplasma pneumoniae Negative Negative (test code = 30088-7) LUCILLE (test code = LUCILLE) Negative:A negative result does not rule-out infection. ?This assay does not test for all potential infectious agents. ? Positive:A positive test result does not necessarily indicate the presence of viable organism. ? Lab Interpretation (test Normal code = 01942-9) [facility] PAN[facility] BY [id number] 20:36:40 Test Item Value Reference Range Interpretation Comments Adenovirus (test code = Negative Negative 06264-4) Coronavirus HKU1 (test Negative Negative code = 70000-5) Coronavirus NL63 (test Negative Negative code = 22968-4) Coronavirus 229E (test Negative Negative code = 19925-6) Coronavirus OC43 (test Negative Negative code = 04389-1) Human Metapneumovirus Negative Negative (test code = 81035-4) Human Negative Negative Rhinovirus/Enterovirus (test code = 16407-0) Influenza A (test code = Negative Negative 42426-4) Influenza B (test code = Negative Negative 13607-3) Parainfluenza Virus 1 Negative Negative (test code = 99433-3) Parainfluenza Virus 2 Negative Negative (test code = 91622-8) Parainfluenza Virus 3 Negative Negative (test code = 56031-6) Parainfluenza Virus 4 Negative Negative (test code = 38606-5) Respiratory Syncytial Negative Negative Virus (test code = 87656-6) Bordetella parapertussis Negative Negative (test code = 75661-7) Bordetella pertussis Negative Negative (test code = 36903-6) Chlamydia pneumoniae Negative Negative (test code = 39562-0) Mycoplasma pneumoniae Negative Negative (test code = 88093-8) LUCILLE (test code = LUCILLE) Negative:A negative result does not rule-out infection. ?This assay does not test for all potential infectious agents. ? Positive:A positive test result does not necessarily indicate the presence of viable organism. ? Lab Interpretation (test Normal code = 89117-5) [facility] [place]ANTI-NUCLEAR ANTIBODY-PATHOLOGIST [id number] 19:52:54ANA - Pathologist InterpretationANA HEp-2 IIFA Pathologist [...] female gender. Clinical correlation is recommended. ? (https://pubmed.ncbi.nlm.nih.gov/68758095/) ? If the patient's clinical cond ition [...] indicated. Juanis Mata MD ?10/22/2021 ?1:52 PM [facility]ANTI-NUCLEAR ANTIBODY- PATHOLOGIST [id number] 19:52:54ANA - Pathologist InterpretationANA HEp-2 IIFA Pathologist [...] female gender. Clinical correlation is recommended. ? (https://pubmed.ncbi.nlm.nih.gov/20907786/) ? If the patient's clinical cond ition [...] indicated. Juanis Mata MD ?10/22/2021 ?1:52 PM [facility]Un[facility] WITH [id number] 11:43:17 Test Item Value Reference Range Interpretation Comments WBC (test code = See_Comment H [Automated 7290-2) message] The system which generated this result transmit britney reference range : 4.30 - 11.10 10*3/?L. The reference range was not used to interpret this result as normal/abnormal . RBC (test code = See_Comment [Automated 419-8) message] The system which generated this result [...] RDW-SD (test code = 46.8 fL 39.0-49.9 02022-6) RDW-CV (test code = 14.6 % 12.0-15.5 788-0) PLT (test code = See_Comment H [Automated 777-3) message] The system which generated this result transmit britney reference range : 166 - 358 10*3/ ?L. The reference range was not u sed to interpret th is result as normal/abnormal . MPV (test code = 10.2 fL 9.5-12.9 17672-2) NRBC/100 WBC (test See_Comment [Automat ed code = 4200787242) message] The system which generated this result transmit britney reference range : 0.0 - 10.0 /100 WBCs. The reference range was not used to interpret this result as normal/abnormal . NRBC x10^3 (test code <0.01 See_Comment [Auto mated = 4726046854) message] The system which generated this result transmit britney reference range : 10*3/?L. The reference range was not used to interpret this result as normal/abnormal . GRAN MAT (NEUT) % 93.6 % (test code = 770-8) IMM GRAN % (test code 2.10 % = 4395910961) LYMPH % (test code = 2.8 % 736-9) MONO % (test code = 1.4 % 5905-5) EOS % (test code = 0.0 % 713-8) BASO % (test code = 0.1 % 706-2) GRAN MAT x10^3(ANC) 17.50 10*3/uL 1.88-7.09 H (test code = 3816365908) IMM GRAN x10^3 (test 0.40 10*3/uL 0.00-0.06 H code = 2844473332) LYMPH x10^3 (test code 0.53 10*3/uL 1.32-3.29 L = 731-0) MONO x10^3 (test code 0.26 10*3/uL 0.33-0.92 L = 742-7) EOS x10^3 (test code = <0.03 0.03-0.39 L 711-2) BASO x10^3 (test code <0.03 0.01-0.07 = 704-7) TOXIC CHANGES (test Present A code = 803-7) Lab Interpretation Abnormal (test code = 00173-0) [facility] WITH [id number] 11:43:17 Test Item Value Reference Range Interpretation [...] RDW-SD (test code = 46.8 fL 39.0-49.9 88715-0) RDW-CV (test code = 14.6 % 12.0-15.5 788-0) PLT (test code = See_Comment H [Automated 777-3) message] The system which generated this result transmit britney reference range : 166 - 358 10*3/ ?L. The reference range was not u sed to interpret th is result as normal/abnormal . MPV (test code = 10.2 fL 9.5-12.9 84144-8) NRBC/100 WBC (test See_Comment [Automat ed code = 0130240632) message] The system which generated this result transmit britney reference range : 0.0 - 10.0 /100 WBCs. The reference range was not used to interpret this result as normal/abnormal . NRBC x10^3 (test code <0.01 See_Comment [Auto mated = 7408774285) message] The system which generated this result transmit britney reference range : 10*3/?L. The reference range was not used to interpret this result as normal/abnormal . GRAN MAT (NEUT) % 93.6 % (test code = 770-8) IMM GRAN % (test code 2.10 % = 5728914473) LYMPH % (test code = 2.8 % 736-9) MONO % (test code = 1.4 % 5905-5) EOS % (test code = 0.0 % 713-8) BASO % (test code = 0.1 % 706-2) GRAN MAT x10^3(ANC) 17.50 10*3/uL 1.88-7.09 H (test code = 7444387742) IMM GRAN x10^3 (test 0.40 10*3/uL 0.00-0.06 H code = 8113906775) LYMPH x10^3 (test code 0.53 10*3/uL 1.32-3.29 L = 731-0) MONO x10^3 (test code 0.26 10*3/uL 0.33-0.92 L = 742-7) EOS x10^3 (test code = <0.03 0.03-0.39 L 711-2) BASO x10^3 (test code <0.03 0.01-0.07 = 704-7) TOXIC CHANGES (test Present A code = 803-7) Lab Interpretation Abnormal (test code = 99863-4) [facility] METABOLIC PANEL (NA, K, CL, CO2, GLUCOSE, BUN, CREATININE, CA)2021-10-22 11:20:32 Test Item Value Reference Range Interpretation Comments NA (test code = 136 mmol/L 135-145 7750027365) K (test code = 4.3 mmol/L 3.5-5.0 7609077614) CL (test code = 103 mmol/L 98-108 7086549902) CO2 TOTAL (test code = 26 mmol/L 23-31 4288225127) AGAP (test code = 2-16 2173297083) BUN (test code = 18 mg/dL 7-23 1424835741) GLUCOSE (test code = 185 mg/dL 70-110 H 3478254927) CREATININE (test code = 0.69 mg/dL 0.50-1.04 2933666615) CALCIUM (test code = 7.9 mg/dL 8.6-10.6 L 2149149349) eGFR (test code = mL/min/1.73m2 5425297048) LUCILLE (test code = LUCILLE) Association of [...] Lab Interpretation Abnormal (test code = 00604-7) [facility] 11:20:32 Test Item Value Reference Range Interpretation Comments MAGNESIUM (test code = 3388467931) 2.2 mg/dL 1.7-2.4 Lab Interpretation (test code = Normal 36067-6) [facility] [place] (NA, K, CL, CO2, GLUCOSE, BUN, CREATININE, CA)2021-10-22 11:20:32 Test Item Value Reference Range Interpretation Comments NA (test code = 136 mmol/L 135-145 2211104806) K (test code = 4.3 mmol/L 3.5-5.0 8839123830) CL (test code = 103 mmol/L 98-108 5331539456) CO2 TOTAL (test code = 26 mmol/L 23-31 3083365614) AGAP (test code = 2-16 7162797227) BUN (test code = 18 mg/dL 7-23 2604716370) GLUCOSE (test code = 185 mg/dL 70-110 H 1339958160) CREATININE (test code = 0.69 mg/dL 0.50-1.04 8502017873) CALCIUM (test code = 7.9 mg/dL 8.6-10.6 L 2612430933) eGFR (test code = mL/min/1.73m2 0143816703) LUCILLE (test code = LUCILLE) Association of [...] tests). Lab Interpretation Abnormal (test code = 68961-0) [facility] Test Item Value Reference Range Interpretation Comments MAGNESIUM (test code = 1366708241) 2.2 mg/dL 1.7-2.4 Lab Interpretation (test code = Normal 20804-4) [facility] CULTURE [id number] 23:01:06 Test Item Value Reference Range Interpretation Comments Blood Culture-Aerobic No organisms No growth Previo us (test code = 54641-1) isolated prelim inary verified result was Culture In Progress on 10/16/2021 at 20 02 CSTPrevious preliminary verified result was No growth a t 24 hours on 10/17/2021 at 17 01 CSTPrevious preliminary verified result was No growth a t 48 hours on 10/18/2021 at 17 01 CSTPrevious preliminary verified result was No growth a t 72 hours on 10/19/2021 at 17 02 [employer] Blood No organisms No growth Previous Culture-Anaerobic isolated preliminar y (test code = 31075-7) verifi ed result was Culture In Progress on 10/16/2021 at 20 02 CSTPrevious preliminary verified result was No growth a t 24 hours on 10/17/2021 at 17 01 CSTPrevious preliminary verified result was No growth a t 48 hours on 10/18/2021 at 17 01 CSTPrevious preliminary verified result was No growth a t 72 hours on 10/19/2021 at 17 02 [employer] Lab Interpretation Normal (test code = 61986-0) [facility] CULTURE [id number] 23:01:06 Test Item Value Reference Range Interpretation Comments Blood Culture-Aerobic No organisms No growth Previo us (test code = 40360-0) isolated prelim inary verified result was Culture In Progress on 10/16/2021 at 20 02 CSTPrevious preliminary verified result was No growth a t 24 hours on 10/17/2021 at 17 01 CSTPrevious preliminary verified result was No growth a t 48 hours on 10/18/2021 at 17 02 CSTPrevious preliminary verified result was No growth a t 72 hours on 10/19/2021 at 17 02 [employer] Blood No organisms No growth Previous Culture-Anaerobic isolated preliminar y (test code = 34615-2) verifi ed result was Culture In Progress on 10/16/2021 at 20 02 CSTPrevious preliminary verified result was No growth a t 24 hours on 10/17/2021 at 17 01 CSTPrevious preliminary verified result was No growth a t 48 hours on 10/18/2021 at 17 02 CSTPrevious preliminary verified result was No growth a t 72 hours on 10/19/2021 at 17 02 [employer] Lab Interpretation Normal (test code = 12843-1) [facility] CULTURE [id number] 23:01:06 Test Item Value Reference Range Interpretation Comments Blood Culture-Aerobic No organisms No growth Previo us (test code = 97068-2) isolated prelim inary verified result was Culture In Progress on 10/16/2021 at 20 02 CSTPrevious preliminary verified result was No growth a t 24 hours on 10/17/2021 at 17 01 CSTPrevious preliminary verified result was No growth a t 48 hours on 10/18/2021 at 17 01 CSTPrevious preliminary verified result was No growth a t 72 hours on 10/19/2021 at 17 02 [employer] Blood No organisms No growth Previous Culture-Anaerobic isolated preliminar y (test code = 13254-8) verifi ed result was Culture In Progress on 10/16/2021 at 20 02 CSTPrevious preliminary verified result was No growth a t 24 hours on 10/17/2021 at 17 01 CSTPrevious preliminary verified result was No growth a t 48 hours on 10/18/2021 at 17 01 CSTPrevious preliminary verified result was No growth a t 72 hours on 10/19/2021 at 17 02 [employer] Lab Interpretation Normal (test code = 72642-8) [facility] CULTURE [id number] 23:01:06 Test Item Value Reference Range Interpretation Comments Blood Culture-Aerobic No organisms No growth Previo us (test code = 33522-9) isolated prelim inary verified result was Culture In Progress on 10/16/2021 at 20 02 CSTPrevious preliminary verified result was No growth a t 24 hours on 10/17/2021 at 17 01 CSTPrevious preliminary verified result was No growth a t 48 hours on 10/18/2021 at 17 02 CSTPrevious preliminary verified result was No growth a t 72 hours on 10/19/2021 at 17 02 [employer] Blood No organisms No growth Previous Culture-Anaerobic isolated preliminar y (test code = 09539-2) verifi ed result was Culture In Progress on 10/16/2021 at 20 02 CSTPrevious preliminary verified result was No growth a t 24 hours on 10/17/2021 at 17 01 CSTPrevious preliminary verified result was No growth a t 48 hours on 10/18/2021 at 17 02 CSTPrevious preliminary verified result was No growth a t 72 hours on 10/19/2021 at 17 02 [employer] Lab Interpretation Normal (test code = 63403-8) [facility] + LACTIC [id number] 20:42:21 Test Item Value Reference Range Interpretation Comments PH (test code = 2) 7.35-7.45 PCO2 (test code = See_Comment [Automat ed 3480764144) message] The sy stem which generated this result transmitted reference range : 35 - 45 mmHg. The reference range was not used to interpret this result as normal/abnormal . PO2 (test code = See_Comment H [Automated 3456025933) message] The sy stem which generated this result transmitted reference range : 80 - 100 mmHg. The reference range was not used to interpret this result as normal/abnormal . HCO3 (test code = See_Comment [Automate d 7855827972) message] The sy stem which generated this result transmitted reference range : 22 - 26 mEq/L. The reference range was not used to interpret this result as normal/abnormal . BE (test code = See_Comment [Automated 9403845387) message] The sy stem which generated this result transmitted reference range : -3.0 - 3.0 mEq/ L. The reference r nicholas was not used to interpret this result as normal/abnormal . THB (test code = 12.1 g/dL 12.0-16.0 6728835737) %O2HB (test code = 99.5 % 94.0-99.0 H 6848060059) %COHB ART (test code = 0.1 % 0.0-1.5 3980255053) %METHB ART (test code = 0.1 % 0.4-1.5 L 7103962675) VOL%O2 ART (test code = 17.8 % 15.0-23.0 3161935216) NA (test code = 135 mmol/L 135-145 7542996019) K+ (test code = 4.3 mmol/L 3.5-5.0 7954785088) AC CA IONZ (test code = 4.50 mg/dL 4.50-5.30 0477152918) GLUCOSE (test code = 108 mg/dL 70-110 2328663282) LACTIC ACID (test code 2.19 mmol/L 0.50-2.20 = 9956424994) Lab Interpretation Abnormal (test code = 17696-8) [facility] + LACTIC [id number] 20:42:21 Test Item Value Reference Range Interpretation Comments PH (test code = 2) 7.35-7.45 PCO2 (test code = See_Comment [Automat ed 0930669875) message] The sy stem which generated this result transmitted reference range : 35 - 45 mmHg. The reference range was not used to interpret this result as normal/abnormal . PO2 (test code = See_Comment H [Automated 0009550069) message] The sy stem which generated this result transmitted reference range : 80 - 100 mmHg. The reference range was not used to interpret this result as normal/abnormal . HCO3 (test code = See_Comment [Automate d 0150443764) message] The sy stem which generated this result transmitted reference range : 22 - 26 mEq/L. The reference range was not used to interpret this result as normal/abnormal . BE (test code = See_Comment [Automated 5655949388) message] The sy stem which generated this result transmitted reference range : -3.0 - 3.0 mEq/ L. The reference r nicholas was not used to interpret this result as normal/abnormal . THB (test code = 12.1 g/dL 12.0-16.0 2319687293) %O2HB (test code = 99.5 % 94.0-99.0 H 6945950562) %COHB ART (test code = 0.1 % 0.0-1.5 7072110832) %METHB ART (test code = 0.1 % 0.4-1.5 L 7059992525) VOL%O2 ART (test code = 17.8 % 15.0-23.0 4220087119) NA (test code = 135 mmol/L 135-145 9711562659) K+ (test code = 4.3 mmol/L 3.5-5.0 5130396659) AC CA IONZ (test code = 4.50 mg/dL 4.50-5.30 3871194596) GLUCOSE (test code = 108 mg/dL 70-110 0227209431) LACTIC ACID (test code 2.19 mmol/L 0.50-2.20 = 2526306098) Lab Interpretation Abnormal (test code = 81506-2) [facility]IOT[facility]IN CONVERTING [id number] 20:19:53 Test Item Value Reference Range Interpretation Comments MELLY (test code = 28 U/L Performed B y: ARUP 2742-5) [address]uyndsab[address]q302 [facility], [place] [address]Wmzqzqxjwf Director: Korin Barillas MD [facility] DallasANGIOTENSIN CONVERTING [id number] 20:19:53 Test Item Value Reference Range Interpretation Comments MELLY (test code = 28 U/L - Performed B y: ARUP 2742-5) Bkkjtxepbwic163 [facility], [place] [address]Iuybkzuopi Director: Korin Barillas MD [facility] FLUID MANUAL [id number] 19:44:45 Test Item Value Reference Range Interpretation Comments BF SEGS% (test code = 98391-9) 2 % BF LYMPHS% (test code = 36076-4) 12 % BF MACROPHAGE% (test code = 16149-0) 86 % BF #CELLS CNTD (test code = 9233365537) cells/uL [facility] FLUID MANUAL [id number] 19:44:45 Test Item Value Reference Range Interpretation Comments BF SEGS% (test code = 90418-7) 2 % BF LYMPHS% (test code = 70562-2) 12 % BF MACROPHAGE% (test code = 32949-9) 86 % BF #CELLS CNTD (test code = 0054145573) cells/uL [facility] FLUID DIRECT [id number] 19:44:30 Test Item Value Reference Range Interpretation Comments BF COLOR Clear (test code = 0524680936) BF WBC Count See_Comment [Automated (test code = message] The sy stem 2651352212) which generated this result transmitted reference range : /?L. The refere nce range was not u sed to interpret th is result as normal/abnormal . BF RBC Count <3000 See_Comment [Automated (test code = message] The sy stem 3430639687) which generated this result transmitted reference range : /?L. The refere nce range was not u sed to interpret th is result as normal/abnormal . LUCILLE (test The reference range code = LUCILLE) and other method performance specifications have not been established for this body fluid. ?The test results must be integrated into the clinical context for interpretation. [facility] FLUID DIRECT [id number] 19:44:30 Test Item Value Reference Range Interpretation Comments BF COLOR Clear (test code = 7127867792) BF WBC Count See_Comment [Automated (test code = message] The sy stem 3678330837) which generated this result transmitted reference range : /?L. The refere nce range was not u sed to interpret th is result as normal/abnormal . BF RBC Count <3000 See_Comment [Automated (test code = message] The sy stem 0148812284) which generated this result transmitted reference range : /?L. The refere nce range was not u sed to interpret th is result as normal/abnormal . LUCILLE (test The reference range code = LUCILLE) and other method performance specifications have not been established for this body fluid. ?The test results must be integrated into the clinical context for interpretation. [facility] WITH [id number] 19:27:30 Test Item Value Reference Range Interpretation [...] RDW-SD (test code = 45.8 fL 39.0-49.9 77470-2) RDW-CV (test code = 14.4 % 12.0-15.5 788-0) PLT (test code = See_Comment H [Automated 777-3) message] The system which generated this result transmit britney reference range : 166 - 358 10*3/ ?L. The reference range was not u sed to interpret th is result as normal/abnormal . MPV (test code = 10.4 fL 9.5-12.9 70481-4) NRBC/100 WBC (test See_Comment [Automat ed code = 3450176422) message] The system which generated this result transmit britney reference range : 0.0 - 10.0 /100 WBCs. The reference range was not used to interpret this result as normal/abnormal . NRBC x10^3 (test code See_Comment [Auto mated = 5408424365) message] The system which generated this result transmit britney reference range : 10*3/?L. The reference range was not used to interpret this result as normal/abnormal . SEG % (test code = 84 % 33-76 H 74052-8) BAND % (test code = 8 % 0-1 H 83220-5) MYELO % (test code = 2 % See_Comment H [Autom ated 03706-1) message] The system which generated this result transmit britney reference range : <=0. The refere nce range was not u sed to interpret th is result as normal/abnormal . LYMPH % (test code = 4 % 14-54 L 66284-4) MONO % (test code = 2 % 0-4 48320-6) ANC (test code = 21.16 10*3/uL 1.88-7.09 H 753-4) Lab Interpretation Abnormal (test code = 68526-3) [facility] WITH [id number] 19:27:30 Test Item Value Reference Range Interpretation [...] RDW-SD (test code = 45.8 fL 39.0-49.9 13719-3) RDW-CV (test code = 14.4 % 12.0-15.5 788-0) PLT (test code = See_Comment H [Automated 777-3) message] The system which generated this result transmit britney reference range : 166 - 358 10*3/ ?L. The reference range was not u sed to interpret th is result as normal/abnormal . MPV (test code = 10.4 fL 9.5-12.9 20537-6) NRBC/100 WBC (test See_Comment [Automat ed code = 1792139491) message] The system which generated this result transmit britney reference range : 0.0 - 10.0 /100 WBCs. The reference range was not used to interpret this result as normal/abnormal . NRBC x10^3 (test code See_Comment [Auto mated = 2979052979) message] The system which generated this result transmit britney reference range : 10*3/?L. The reference range was not used to interpret this result as normal/abnormal . SEG % (test code = 84 % 33-76 H 16293-3) BAND % (test code = 8 % 0-1 H 09460-4) MYELO % (test code = 2 % See_Comment H [Autom ated 08401-4) message] The system which generated this result transmit britney reference range : <=0. The refere nce range was not u sed to interpret th is result as normal/abnormal . LYMPH % (test code = 4 % 14-54 L 30586-8) MONO % (test code = 2 % 0-4 36983-4) ANC (test code = 21.16 10*3/uL 1.88-7.09 H 753-4) Lab Interpretation Abnormal (test code = 81632-8) [facility] METABOLIC PANEL (NA, K, CL, CO2, GLUCOSE, BUN, CREATININE, CA)2021-10-21 19:20:26 Test Item Value Reference Range Interpretation Comments NA (test code = 125 mmol/L 135-145 L 2046891077) K (test code = 4.4 mmol/L 3.5-5.0 Slight 9608340271) hemolysis CL (test code = 98 mmol/L 98-108 9927870905) CO2 TOTAL (test code 19 mmol/L 23-31 L = 0483130436) AGAP (test code = 2-16 1583614433) BUN (test code = 21 mg/dL 7-23 Slight 7820661756) hemolysis GLUCOSE (test code = 155 mg/dL 70-110 H 8689197014) CREATININE (test code 0.63 mg/dL 0.50-1.04 = 9529471040) CALCIUM (test code = 6.9 mg/dL 8.6-10.6 L 0691258078) eGFR (test code = mL/min/1.73m2 0773914205) LUCILLE (test code = LUCILLE) Association of [...] tests). Lab Interpretation Abnormal (test code = 33416-4) [facility] METABOLIC PANEL (NA, K, CL, CO2, GLUCOSE, BUN, CREATININE, CA)2021-10-21 19:20:26 Test Item Value Reference Range Interpretation Comments NA (test code = 125 mmol/L 135-145 L 3977956409) K (test code = 4.4 mmol/L 3.5-5.0 Slight 1375454980) hemolysis CL (test code = 98 mmol/L 98-108 4854650610) CO2 TOTAL (test code 19 mmol/L 23-31 L = 2452879940) AGAP (test code = 2-16 6003399044) BUN (test code = 21 mg/dL 7-23 Slight 3467135333) hemolysis GLUCOSE (test code = 155 mg/dL 70-110 H 5819801246) CREATININE (test code 0.63 mg/dL 0.50-1.04 = 8429354385) CALCIUM (test code = 6.9 mg/dL 8.6-10.6 L 6868499648) eGFR (test code = mL/min/1.73m2 2795246696) LUCILLE (test code = LUCILLE) Association of [...] tests). Lab Interpretation Abnormal (test code = 32719-2) [facility] Test Item Value Reference Range Interpretation Comments Fibrinogen (test code = 0872012885) 585 mg/dL 167-453 H Lab Interpretation (test code = Abnormal 39845-0) [facility] DallasPROTHROMBIN TIME / [id number] 19:12:03 Test Item Value Reference Range Interpretation Comments PROTIME PATIENT (test See_Comment H [Auto mated message] code = 5964-2) The system [employer] generated this result transmitted ref erence range: 10.1 - 1 2.6 Seconds. The reference range was not used to int erpret this result as normal/abnormal . INR (test code = 6301-6) Nor mal INR <1.1; Warfarin Therap eutic range 2.0 to 3. 0 or 2.5 to 3.5, dep ending upon the indica tions. Lab Interpretation (test Abnormal code = 70709-3) [facility] DallasFIBRINOGEN2022-02-18 19:12:03 Test Item Value Reference Range Interpretation Comments Fibrinogen (test code = 2116110008) 585 mg/dL 167-453 H Lab Interpretation (test code = Abnormal 16238-4) [facility] DallasPROTHROMBIN TIME / [id number] 19:12:03 Test Item Value Reference Range Interpretation Comments PROTIME PATIENT (test See_Comment H [Auto mated message] code = 5964-2) The system [employer] generated this result transmitted ref erence range: 10.1 - 1 2.6 Seconds. The reference range was not used to int erpret this result as normal/abnormal . INR (test code = 6301-6) Nor mal INR <1.1; Warfarin Therap eutic range 2.0 to 3. 0 or 2.5 to 3.5, dep ending upon the indica tions. Lab Interpretation (test Abnormal code = 19238-4) [facility] DallasURIC [id number] 04:54:18 Test Item Value Reference Range Interpretation Comments URIC ACID (test code = 8821744340) 4.3 mg/dL 2.9-6.0 Lab Interpretation (test code = Normal 19274-7) [facility] Dallas[facility] [id number] 04:54:18 Test Item Value Reference Range Interpretation Comments URIC ACID (test code = 6720415551) 4.3 mg/dL 2.9-6.0 Lab Interpretation (test code = Normal 57059-8) [facility] DallasTransthoracic echo (TTE)2021-10-20 20:54:06 Test Item Value Reference Range Interpretation Comments EF(Teich) (test code = 63.80 % 2091610741) LVIDD (test code = 4.40 cm 2973598189) LVIDS (test code = 2.90 cm 3971369243) IVS (test code = 0.86 cm 1708671493) LVPWD (test code = 0.86 cm 7420788765) LVOT diameter (test code 2.00 cm = 9833793738) FS (test code = 35 % 7844143615) LA size (test code = 3.4 cm 5446735029) LAV(MOD-sp4) (test code = 41.40 mL 2807517530) Ao root annulus (test 2.44 cm code = 9216407328) Ao root diam (test code = 2.44 cm 0894312288) Aortic root (test code = 2.44 cm 4677670001) PW (test code = 0.86 cm 0.6-1.5 6857624322) EF - 2D (test code = 63.80 % 83137309) Interventricular Septum 0.86 cm Diastolic Thickness by 2D (test code = 1475399) Radiology Study observation (narrative) (test code = 80400-9) LUCILLE (test code = LUCILLE) ?Left?Ventricle: Left [...] ? ?114/63 81 [facility] DallasTransthor[facility] (TTE)2021-10-20 20:54:06 Test Item Value Reference Range Interpretation Comments EF(Teich) (test code = 63.80 % 8749890805) LVIDD (test code = 4.40 cm 3190807864) LVIDS (test code = 2.90 cm 1771263316) IVS (test code = 0.86 cm 5859417744) LVPWD (test code = 0.86 cm 4431044616) LVOT diameter (test code 2.00 cm = 2713059376) FS (test code = 35 % 3381224675) LA size (test code = 3.4 cm 9449583686) LAV(MOD-sp4) (test code = 41.40 mL 6744369227) Ao root annulus (test 2.44 cm code = 7460574665) Ao root diam (test code = 2.44 cm 0459587873) Aortic root (test code = 2.44 cm 6661638960) PW (test code = 0.86 cm 0.6-1.9 8746654956) EF - 2D (test code = 63.80 % 50218538) Interventricular Septum 0.86 cm Diastolic Thickness by 2D (test code = 7629228) Radiology Study observation (narrative) (test code = 19809-1) LUCILLE (test code = LUCILLE) ?Left?Ventricle: Left [...] ? ?114/63 81 [facility] DallasCBC WITH [id number] 11:09:20 Test Item Value Reference Range Interpretation [...] RDW-SD (test code = 46.3 fL 39.0-49.9 29032-6) RDW-CV (test code = 14.5 % 12.0-15.5 788-0) PLT (test code = See_Comment [Automated 777-3) message] The system which generated this result transmit britney reference range : 166 - 358 10*3/ ?L. The reference range was not u sed to interpret th is result as normal/abnormal . MPV (test code = 9.9 fL 9.5-12.9 09300-2) NRBC/100 WBC (test See_Comment [Automat ed code = 2305204272) message] The system which generated this result transmit britney reference range : 0.0 - 10.0 /100 WBCs. The reference range was not used to interpret this result as normal/abnormal . NRBC x10^3 (test code <0.01 See_Comment [Auto mated = 8609110275) message] The system which generated this result transmit britney reference range : 10*3/?L. The reference range was not used to interpret this result as normal/abnormal . GRAN MAT (NEUT) % 89.9 % (test code = 770-8) IMM GRAN % (test code 2.90 % = 9789706211) LYMPH % (test code = 4.2 % 736-9) MONO % (test code = 2.9 % 5905-5) EOS % (test code = 0.0 % 713-8) BASO % (test code = 0.1 % 706-2) GRAN MAT x10^3(ANC) 14.51 10*3/uL 1.88-7.09 H (test code = 7512124861) IMM GRAN x10^3 (test 0.46 10*3/uL 0.00-0.06 H code = 7536639503) LYMPH x10^3 (test code 0.67 10*3/uL 1.32-3.29 L = 731-0) MONO x10^3 (test code 0.47 10*3/uL 0.33-0.92 = 742-7) EOS x10^3 (test code = <0.03 0.03-0.39 L 711-2) BASO x10^3 (test code <0.03 0.01-0.07 = 704-7) TOXIC CHANGES (test Present A code = 803-7) Lab Interpretation Abnormal (test code = 71515-8) [facility] WITH [id number] 11:09:20 Test Item Value Reference Range Interpretation [...] RDW-SD (test code = 46.3 fL 39.0-49.9 34847-9) RDW-CV (test code = 14.5 % 12.0-15.5 788-0) PLT (test code = See_Comment [Automated 777-3) message] The system which generated this result transmit britney reference range : 166 - 358 10*3/ ?L. The reference range was not u sed to interpret th is result as normal/abnormal . MPV (test code = 9.9 fL 9.5-12.9 45072-5) NRBC/100 WBC (test See_Comment [Automat ed code = 8600571495) message] The system which generated this result transmit britney reference range : 0.0 - 10.0 /100 WBCs. The reference range was not used to interpret this result as normal/abnormal . NRBC x10^3 (test code <0.01 See_Comment [Auto mated = 1936783796) message] The system which generated this result transmit britney reference range : 10*3/?L. The reference range was not used to interpret this result as normal/abnormal . GRAN MAT (NEUT) % 89.9 % (test code = 770-8) IMM GRAN % (test code 2.90 % = 0319849777) LYMPH % (test code = 4.2 % 736-9) MONO % (test code = 2.9 % 5905-5) EOS % (test code = 0.0 % 713-8) BASO % (test code = 0.1 % 706-2) GRAN MAT x10^3(ANC) 14.51 10*3/uL 1.88-7.09 H (test code = 1953826972) IMM GRAN x10^3 (test 0.46 10*3/uL 0.00-0.06 H code = 8811169242) LYMPH x10^3 (test code 0.67 10*3/uL 1.32-3.29 L = 731-0) MONO x10^3 (test code 0.47 10*3/uL 0.33-0.92 = 742-7) EOS x10^3 (test code = <0.03 0.03-0.39 L 711-2) BASO x10^3 (test code <0.03 0.01-0.07 = 704-7) TOXIC CHANGES (test Present A code = 803-7) Lab Interpretation Abnormal (test code = 71035-8) [facility] METABOLIC PANEL (NA, K, CL, CO2, GLUCOSE, BUN, CREATININE, CA)2021-10-20 10:55:22 Test Item Value Reference Range Interpretation Comments NA (test code = 136 mmol/L 135-145 3752940532) K (test code = 4.1 mmol/L 3.5-5.0 9332682531) CL (test code = 108 mmol/L 98-108 7785811084) CO2 TOTAL (test code = 25 mmol/L 23-31 1187752705) AGAP (test code = 2-16 8180816367) BUN (test code = 23 mg/dL 7-23 4210625555) GLUCOSE (test code = 134 mg/dL 70-110 H 8989560558) CREATININE (test code = 0.67 mg/dL 0.50-1.04 5510631253) CALCIUM (test code = 7.5 mg/dL 8.6-10.6 L 5071875600) eGFR (test code = mL/min/1.73m2 4922574592) LUCILLE (test code = LUCILLE) Association of [...] tests). Lab Interpretation Abnormal (test code = 37652-3) [facility] METABOLIC PANEL (NA, K, CL, CO2, GLUCOSE, BUN, CREATININE, CA)2021-10-20 10:55:22 Test Item Value Reference Range Interpretation Comments NA (test code = 136 mmol/L 135-145 3823918138) K (test code = 4.1 mmol/L 3.5-5.0 7103238026) CL (test code = 108 mmol/L 98-108 2736045131) CO2 TOTAL (test code = 25 mmol/L 23-31 2833775373) AGAP (test code = 2-16 8097268739) BUN (test code = 23 mg/dL 7-23 1034367000) GLUCOSE (test code = 134 mg/dL 70-110 H 8973800374) CREATININE (test code = 0.67 mg/dL 0.50-1.04 0756212768) CALCIUM (test code = 7.5 mg/dL 8.6-10.6 L 1753646140) eGFR (test code = mL/min/1.73m2 3087091553) LUCILLE (test code = LUCILLE) Association of [...] tests). Lab Interpretation Abnormal (test code = 34863-3) [facility]ED [id number] 21:49:45 Test Item Value Reference Range Interpretation Comments ANTI-DSDNA (test code See_Comment [Auto mated = 2003075176) message] The system which generated this result transmit britney reference range : 0.0 - 4.0 IU/mL . The reference range was not u sed to interpret th is result as normal/abnormal . LUCILLE (test code = LUCILLE) Negative ? ?< or = 4 IU/mLPositive ? ? ?> or = 10 IU/mLIndetermin ate ?5-9 IU/mL Lab Interpretation Normal (test code = 86385-3) [facility] [id number] 21:49:45 Test Item Value Reference Range Interpretation Comments ANTI-DSDNA (test code See_Comment [Auto mated = 0524873291) message] The system which generated this result transmit britney reference range : 0.0 - 4.0 IU/mL . The reference range was not u sed to interpret th is result as normal/abnormal . LUCILLE (test code = LUCILLE) Negative ? ?< or = 4 IU/mLPositive ? ? ?> or = 10 IU/mLIndetermin ate ?5-9 IU/mL Lab Interpretation Normal (test code = 09665-2) [facility] Dallas[facility]HE[facility] [id number] 21:43:06 Test Item Value Reference Range Interpretation Comments RF (test code = <20 See_Comment [Automated message] 8232998279) The system Diana generated this result transmitted ref erence range: <20 IU/m L. The reference range was not used to int erpret this result as normal/abnormal . Lab Interpretation (test Normal code = 51390-8) [facility] DallasRHEUMATOID [id number] 21:43:06 Test Item Value Reference Range Interpretation Comments RF (test code = <20 See_Comment [Automated message] 4541458330) The system Diana generated this result transmitted ref erence range: <20 IU/m L. The reference range was not used to int erpret this result as normal/abnormal . Lab Interpretation (test Normal code = 32892-8) [facility] DallasANTI-NUCLEAR ANTIBODY [id number] 20:22:55 Test Item Value Reference Range Interpretation Comments SHIRA Titer by IFA <=1:80 (test code = 9614382110) SHIRA Pattern (test SHIRA screen was positive code = 0452698612) at the 1:80 dilution but with low [...] for 7 days. [facility] Dallas[facility]I-NUCLEAR ANTIBODY [id number] 20:22:55 Test Item Value Reference Range Interpretation Comments SHIRA Titer by IFA <=1:80 (test code = 2839377749) SHIRA Pattern (test SHIRA screen was positive code = 4858290661) at the 1:80 dilution but with low titer results observed during subsequent testing. LUCILLE (test code = LUCLILE) Anti-nuclear antibodies are seen in a variety [...] for 7 days. [facility] DallasANCA [id number] 18:12:04 Test Item Value Reference Range Interpretation Comments Myeloperoxidase (MPO) Negative Negative Antibodies, IgG Interpretation (test code = 88539-5) Proteinase 3 (PR3) Negative Negative Antibodies, IgG Interpretation (test code = 52537-9) Myeloperoxidase (MPO) <0.3 See_Comment [Auto mated Antibodies, IgG (test messag e] The code = 3128384393) system [facility] generated this result transmitted reference range : <=3.5 U/mL. The reference range was not used to interpret this result as normal/abnormal . Proteinase 3 (PR3) <0.7 See_Comment [Automat ed Antibodies, IgG (test messag e] The code = 8384808702) system [facility] generated this result transmitted reference [...] weeks. Lab Interpretation Normal (test code = 76854-0) [facility] [id number] 18:12:04 Test Item Value Reference Range Interpretation Comments Myeloperoxidase (MPO) Negative Negative Antibodies, IgG Interpretation (test code = 41450-9) Proteinase 3 (PR3) Negative Negative Antibodies, IgG Interpretation (test code = 13611-5) Myeloperoxidase (MPO) <0.3 See_Comment [Auto mated Antibodies, IgG (test messag e] The code = 0679850383) system [facility] generated this result transmitted reference range : <=3.5 U/mL. The reference range was not used to interpret this result as normal/abnormal . Proteinase 3 (PR3) <0.7 See_Comment [Automat ed Antibodies, IgG (test messag e] The code = 9990147222) system [facility] generated this result transmitted reference [...] weeks. Lab Interpretation Normal (test code = 99662-1) [facility] Test Item Value Reference Range Interpretation Comments MAGNESIUM (test code = 9326653778) 2.9 mg/dL 1.7-2.4 H Lab Interpretation (test code = Abnormal 45405-2) [facility] Test Item Value Reference Range Interpretation Comments MAGNESIUM (test code = 7596147318) 2.9 mg/dL 1.7-2.4 H Lab Interpretation (test code = Abnormal 52626-5) [facility] WITH [id number] 09:31:49 Test Item Value Reference Range Interpretation [...] RDW-SD (test code = 45.5 fL 39.0-49.9 45051-8) RDW-CV (test code = 14.4 % 12.0-15.5 788-0) PLT (test code = See_Comment [Automated 777-3) message] The system which generated this result transmit britney reference range : 166 - 358 10*3/ ?L. The reference range was not u sed to interpret th is result as normal/abnormal . MPV (test code = 10.0 fL 9.5-12.9 07724-7) NRBC/100 WBC (test See_Comment [Automat ed code = 4570580412) message] The system which generated this result transmit britney reference range : 0.0 - 10.0 /100 WBCs. The reference range was not used to interpret this result as normal/abnormal . NRBC x10^3 (test code <0.01 See_Comment [Auto mated = 3313564225) message] The system which generated this result transmit britney reference range : 10*3/?L. The reference range was not used to interpret this result as normal/abnormal . GRAN MAT (NEUT) % 93.4 % (test code = 770-8) IMM GRAN % (test code 1.50 % = 3547015150) LYMPH % (test code = 2.4 % 736-9) MONO % (test code = 2.6 % 5905-5) EOS % (test code = 0.0 % 713-8) BASO % (test code = 0.1 % 706-2) GRAN MAT x10^3(ANC) 17.74 10*3/uL 1.88-7.09 H (test code = 1907990580) IMM GRAN x10^3 (test 0.28 10*3/uL 0.00-0.06 H code = 6475291512) LYMPH x10^3 (test code 0.46 10*3/uL 1.32-3.29 L = 731-0) MONO x10^3 (test code 0.50 10*3/uL 0.33-0.92 = 742-7) EOS x10^3 (test code = <0.03 0.03-0.39 L 711-2) BASO x10^3 (test code <0.03 0.01-0.07 = 704-7) TOXIC CHANGES (test Present A code = 803-7) Lab Interpretation Abnormal (test code = 28194-4) [facility] WITH [id number] 09:31:49 Test Item Value Reference Range Interpretation [...] RDW-SD (test code = 45.5 fL 39.0-49.9 25127-0) RDW-CV (test code = 14.4 % 12.0-15.5 788-0) PLT (test code = See_Comment [Automated 777-3) message] The system which generated this result transmit britney reference range : 166 - 358 10*3/ ?L. The reference range was not u sed to interpret th is result as normal/abnormal . MPV (test code = 10.0 fL 9.5-12.9 24863-9) NRBC/100 WBC (test See_Comment [Automat ed code = 5619185677) message] The system which generated this result transmit britney reference range : 0.0 - 10.0 /100 WBCs. The reference range was not used to interpret this result as normal/abnormal . NRBC x10^3 (test code <0.01 See_Comment [Auto mated = 4981857669) message] The system which generated this result transmit britney reference range : 10*3/?L. The reference range was not used to interpret this result as normal/abnormal . GRAN MAT (NEUT) % 93.4 % (test code = 770-8) IMM GRAN % (test code 1.50 % = 4592697952) LYMPH % (test code = 2.4 % 736-9) MONO % (test code = 2.6 % 5905-5) EOS % (test code = 0.0 % 713-8) BASO % (test code = 0.1 % 706-2) GRAN MAT x10^3(ANC) 17.74 10*3/uL 1.88-7.09 H (test code = 3681181302) IMM GRAN x10^3 (test 0.28 10*3/uL 0.00-0.06 H code = 5370222450) LYMPH x10^3 (test code 0.46 10*3/uL 1.32-3.29 L = 731-0) MONO x10^3 (test code 0.50 10*3/uL 0.33-0.92 = 742-7) EOS x10^3 (test code = <0.03 0.03-0.39 L 711-2) BASO x10^3 (test code <0.03 0.01-0.07 = 704-7) TOXIC CHANGES (test Present A code = 803-7) Lab Interpretation Abnormal (test code = 65173-5) [facility] METABOLIC PANEL (NA, K, CL, CO2, GLUCOSE, BUN, CREATININE, CA)2021-10-19 09:25:48 Test Item Value Reference Range Interpretation Comments NA (test code = 144 mmol/L 135-145 2632135174) K (test code = 4.5 mmol/L 3.5-5.0 9140576837) CL (test code = 111 mmol/L 98-108 H 7309434539) CO2 TOTAL (test code = 27 mmol/L 23-31 6695985265) AGAP (test code = 2-16 1975228081) BUN (test code = 30 mg/dL 7-23 H 1878257994) GLUCOSE (test code = 159 mg/dL 70-110 H 8024207766) CREATININE (test code = 0.81 mg/dL 0.50-1.04 9219606402) CALCIUM (test code = 8.2 mg/dL 8.6-10.6 L 7936734232) eGFR (test code = mL/min/1.73m2 4738049397) LUCILLE (test code = LUCILLE) Association of [...] tests). Lab Interpretation Abnormal (test code = 69200-5) [facility] METABOLIC PANEL (NA, K, CL, CO2, GLUCOSE, BUN, CREATININE, CA)2021-10-19 09:25:48 Test Item Value Reference Range Interpretation Comments NA (test code = 144 mmol/L 135-145 3893650167) K (test code = 4.5 mmol/L 3.5-5.0 1632877754) CL (test code = 111 mmol/L 98-108 H 1003794839) CO2 TOTAL (test code = 27 mmol/L 23-31 0354166405) AGAP (test code = 2-16 0224993278) BUN (test code = 30 mg/dL 7-23 H 3157366727) GLUCOSE (test code = 159 mg/dL 70-110 H 0934514955) CREATININE (test code = 0.81 mg/dL 0.50-1.04 4813303119) CALCIUM (test code = 8.2 mg/dL 8.6-10.6 L 2957981498) eGFR (test code = mL/min/1.73m2 7493932098) LUCILLE (test code = LUCILLE) Association of [...] tests). Lab Interpretation Abnormal (test code = 12790-2) [facility] GLUCOSE (AUTOMATED)2021-10-19 02:29:39 Test Item Value Reference Range Interpretation Comments POCT GLU (test code = 2129371414) 159 mg/dL 70-110 H Lab Interpretation (test code = Abnormal 59165-5) [facility]21-10-19 02:29:39 Test Item Value Reference Range Interpretation Comments POCT GLU (test code = 3230799575) 159 mg/dL 70-110 H Lab Interpretation (test code = Abnormal 30462-0) [facility] ANTIBODY [id number] 22:06:05 Test Item Value Reference Range Interpretation Comments SHIRA (test code = Positive Negative A 4819243237) LUCILLE (test code = LUCILLE) Negative - No Anti-Nuclear Antibodies detected by IFA.Positive - SHIRA IFA screen performed with a 1:80 dilution in adults and a 1:40 dilution in pediatrics. Any SHIRA "Positive" will have titer performed and reported separately. Lab Interpretation (test Abnormal code = 00181-3) [facility] ANTIBODY [id number] 22:06:05 Test Item Value Reference Range Interpretation Comments SHIRA (test code = Positive Negative A 9481550499) LUCILLE (test code = LUCILLE) Negative - No Anti-Nuclear Antibodies detected by IFA.Positive - SHIRA IFA screen performed with a 1:80 dilution in adults and a 1:40 dilution in pediatrics. Any SHIRA "Positive" will have titer performed and reported separately. Lab Interpretation (test Abnormal code = 27885-6) [facility] HEMOGLOBIN (A1C)2021-10-18 17:16:16 Test Item Value Reference Range Interpretation Comments HGB A1C (test code = 6.0 % 4.0-5.7 H 4548-4) LUCILLE (test code = LUCILLE) Reference RangesNormal: <5.7%Prediabetes: 5.7 - 6.4%Diabetes: > 6.5% Lab Interpretation (test Abnormal code = 09487-5) [facility] (A1C)2021-10-18 17:16:16 Test Item Value Reference Range Interpretation Comments HGB A1C (test code = 6.0 % 4.0-5.7 H 4548-4) LUCILLE (test code = LUCILLE) Reference RangesNormal: <5.7%Prediabetes: 5.7 - 6.4%Diabetes: > 6.5% Lab Interpretation (test Abnormal code = 37917-3) [facility] WITH [id number] 10:21:29 Test Item Value Reference Range Interpretation [...] RDW-SD (test code = 44.0 fL 39.0-49.9 22093-6) RDW-CV (test code = 14.1 % 12.0-15.5 788-0) PLT (test code = See_Comment [Automated 777-3) message] The system which generated this result transmit britney reference range : 166 - 358 10*3/ ?L. The reference range was not u sed to interpret th is result as normal/abnormal . MPV (test code = 10.5 fL 9.5-12.9 39821-8) NRBC/100 WBC (test See_Comment [Automat ed code = 4872381150) message] The system which generated this result transmit britney reference range : 0.0 - 10.0 /100 WBCs. The reference range was not used to interpret this result as normal/abnormal . NRBC x10^3 (test code <0.01 See_Comment [Auto mated = 0394421838) message] The system which generated this result transmit britney reference range : 10*3/?L. The reference range was not used to interpret this result as normal/abnormal . GRAN MAT (NEUT) % 94.3 % (test code = 770-8) IMM GRAN % (test code 1.00 % = 0715120381) LYMPH % (test code = 2.1 % 736-9) MONO % (test code = 2.5 % 5905-5) EOS % (test code = 0.0 % 713-8) BASO % (test code = 0.1 % 706-2) GRAN MAT x10^3(ANC) 18.69 10*3/uL 1.88-7.09 H (test code = 3594860858) IMM GRAN x10^3 (test 0.20 10*3/uL 0.00-0.06 H code = 1050864173) LYMPH x10^3 (test code 0.42 10*3/uL 1.32-3.29 L = 731-0) MONO x10^3 (test code 0.50 10*3/uL 0.33-0.92 = 742-7) EOS x10^3 (test code = <0.03 0.03-0.39 L 711-2) BASO x10^3 (test code <0.03 0.01-0.07 = 704-7) TOXIC CHANGES (test Present A code = 803-7) Lab Interpretation Abnormal (test code = 48012-2) [facility] WITH [id number] 10:21:29 Test Item Value Reference Range Interpretation Comments WBC (test code = See_Comment H [Automated 9290-2) message] The system which generated this result transmit britney reference range : 4.30 - 11.10 10*3/?L. The reference range was not used to interpret this result as normal/abnormal . RBC (test code = See_Comment L [Automated 709-8) message] The system which generated this result [...] RDW-SD (test code = 44.0 fL 39.0-49.9 50558-0) RDW-CV (test code = 14.1 % 12.0-15.5 788-0) PLT (test code = See_Comment [Automated 777-3) message] The system which generated this result transmit britney reference range : 166 - 358 10*3/ ?L. The reference range was not u sed to interpret th is result as normal/abnormal . MPV (test code = 10.5 fL 9.5-12.9 01821-7) NRBC/100 WBC (test See_Comment [Automat ed code = 4549984704) message] The system which generated this result transmit britney reference range : 0.0 - 10.0 /100 WBCs. The reference range was not used to interpret this result as normal/abnormal . NRBC x10^3 (test code <0.01 See_Comment [Auto mated = 0976886617) message] The system which generated this result transmit britney reference range : 10*3/?L. The reference range was not used to interpret this result as normal/abnormal . GRAN MAT (NEUT) % 94.3 % (test code = 770-8) IMM GRAN % (test code 1.00 % = 6592667173) LYMPH % (test code = 2.1 % 736-9) MONO % (test code = 2.5 % 5905-5) EOS % (test code = 0.0 % 713-8) BASO % (test code = 0.1 % 706-2) GRAN MAT x10^3(ANC) 18.69 10*3/uL 1.88-7.09 H (test code = 0318790219) IMM GRAN x10^3 (test 0.20 10*3/uL 0.00-0.06 H code = 2222613357) LYMPH x10^3 (test code 0.42 10*3/uL 1.32-3.29 L = 731-0) MONO x10^3 (test code 0.50 10*3/uL 0.33-0.92 = 742-7) EOS x10^3 (test code = <0.03 0.03-0.39 L 711-2) BASO x10^3 (test code <0.03 0.01-0.07 = 704-7) TOXIC CHANGES (test Present A code = 803-7) Lab Interpretation Abnormal (test code = 73384-3) [facility] METABOLIC PANEL (NA, K, CL, CO2, GLUCOSE, BUN, CREATININE, CA)2021-10-18 09:49:57 Test Item Value Reference Range Interpretation Comments NA (test code = 141 mmol/L 135-145 1829837668) K (test code = 4.9 mmol/L 3.5-5.0 0508024711) CL (test code = 107 mmol/L 98-108 7241410659) CO2 TOTAL (test code = 26 mmol/L 23-31 8350584207) AGAP (test code = 2-16 4924238139) BUN (test code = 30 mg/dL 7-23 H 6700128753) GLUCOSE (test code = 166 mg/dL 70-110 H 6578724297) CREATININE (test code = 0.76 mg/dL 0.50-1.04 9101057005) CALCIUM (test code = 8.2 mg/dL 8.6-10.6 L 2154912633) eGFR (test code = mL/min/1.73m2 6222848337) LUCILLE (test code = LUCILLE) Association of [...] tests). Lab Interpretation Abnormal (test code = 22313-0) [facility] 09:49:57 Test Item Value Reference Range Interpretation Comments MAGNESIUM (test code = 0184003822) 3.0 mg/dL 1.7-2.4 H Lab Interpretation (test code = Abnormal 57261-2) [facility]20[facility]15 09:49:57 Test Item Value Reference Range Interpretation Comments PHOSPHORUS (test code = 8337774075) 4.0 mg/dL 2.5-5.0 Lab Interpretation (test code = Normal 41881-8) [facility] (NA, K, CL, CO2, GLUCOSE, BUN, CREATININE, CA)2021-10-18 09:49:57 Test Item Value Reference Range Interpretation Comments NA (test code = 141 mmol/L 135-145 8406548878) K (test code = 4.9 mmol/L 3.5-5.0 0199341763) CL (test code = 107 mmol/L 98-108 2820726152) CO2 TOTAL (test code = 26 mmol/L 23-31 7978680246) AGAP (test code = 2-16 5016574856) BUN (test code = 30 mg/dL 7-23 H 1484098704) GLUCOSE (test code = 166 mg/dL 70-110 H 0383162917) CREATININE (test code = 0.76 mg/dL 0.50-1.04 1030868468) CALCIUM (test code = 8.2 mg/dL 8.6-10.6 L 5701638292) eGFR (test code = mL/min/1.73m2 4663336103) LUCILLE (test code = LUCILLE) Association of [...] tests). Lab Interpretation Abnormal (test code = 01798-8) [facility]15 09:49:57 Test Item Value Reference Range Interpretation Comments MAGNESIUM (test code = 8852020804) 3.0 mg/dL 1.7-2.4 H Lab Interpretation (test code = Abnormal 96931-1) [facility]15 09:49:57 Test Item Value Reference Range Interpretation Comments PHOSPHORUS (test code = 7605337200) 4.0 mg/dL 2.5-5.0 Lab Interpretation (test code = Normal 84374-3) [facility] AG-AB WITH [id number] 02:31:06 Test Item Value Reference Range Interpretation Comments HIV Negative Negative Semi-quantitative (test code = 82281-0) LUCILLE (test code = Non-reactive for HIV-1 LUCILLE) antigen and HIV-1/HIV-2 antibodies. ?No laboratory evidence of HIV infection. ?Repeat in 2-4 weeks if acute HIV infection is suspected. [facility] AG-AB WITH [id number] 02:31:06 Test Item Value Reference Range Interpretation Comments HIV Negative Negative Semi-quantitative (test code = 83297-3) LUCILLE (test code = Non-reactive for HIV-1 LUCILLE) antigen and HIV-1/HIV-2 antibodies. ?No laboratory evidence of HIV infection. ?Repeat in 2-4 weeks if acute HIV infection is suspected. [facility] METABOLIC PANEL (NA, K, CL, CO2, GLUCOSE, BUN, CREATININE, CA)2021-10-18 01:11:26 Test Item Value Reference Range Interpretation Comments NA (test code = 141 mmol/L 135-145 7369066944) K (test code = 4.6 mmol/L 3.5-5.0 1825087757) CL (test code = 106 mmol/L 98-108 9518026813) CO2 TOTAL (test code = 26 mmol/L 23-31 2583029744) AGAP (test code = 2-16 1602733813) BUN (test code = 28 mg/dL 7-23 H 5956369868) GLUCOSE (test code = 180 mg/dL 70-110 H 6414453223) CREATININE (test code = 0.82 mg/dL 0.50-1.04 6637076681) CALCIUM (test code = 8.3 mg/dL 8.6-10.6 L 7550233596) eGFR (test code = mL/min/1.73m2 2997704552) LUCILLE (test code = LUCILLE) Association of [...] tests). Lab Interpretation Abnormal (test code = 80205-7) [facility] METABOLIC PANEL (NA, K, CL, CO2, GLUCOSE, BUN, CREATININE, CA)2021-10-18 01:11:26 Test Item Value Reference Range Interpretation Comments NA (test code = 141 mmol/L 135-145 0675727879) K (test code = 4.6 mmol/L 3.5-5.0 7682717139) CL (test code = 106 mmol/L 98-108 9713631775) CO2 TOTAL (test code = 26 mmol/L 23-31 1180467534) AGAP (test code = 2-16 5615949368) BUN (test code = 28 mg/dL 7-23 H 6737690648) GLUCOSE (test code = 180 mg/dL 70-110 H 3296800001) CREATININE (test code = 0.82 mg/dL 0.50-1.04 2051632307) CALCIUM (test code = 8.3 mg/dL 8.6-10.6 L 8823776200) eGFR (test code = mL/min/1.73m2 4488025622) LUCILLE (test code = LUCILLE) Association of [...] tests). Lab Interpretation Abnormal (test code = 37375-6) [facility] [id number] 22:06:03 Test Item Value Reference Range Interpretation Comments NT-proBNP (test code 250 pg/mL See_Comment H [Autom ated = 3499879905) message] The system which generated this result transmitted reference range : <=125. The reference range was not used to interpret this result as normal/abnormal . LUCILLE (test code = LUCILLE) Biotin has been reported to cause a negative bias, interpret results relative to patient's use of biotin. Lab Interpretation Abnormal (test code = 81573-4) [facility] [id number] 22:06:03 Test Item Value Reference Range Interpretation Comments NT-proBNP (test code 250 pg/mL See_Comment H [Autom ated = 1903847396) message] The system which generated this result transmitted reference range : <=125. The reference range was not used to interpret this result as normal/abnormal . LUCILLE (test code = LUCILLE) Biotin has been reported to cause a negative bias, interpret results relative to patient's use of biotin. Lab Interpretation Abnormal (test code = 39297-6) [facility] DallasABG+COOX+NA+K+GLU+CA2+2021-10-17 21:42:22 Test Item Value Reference Range Interpretation Comments PH (test code = 2) 7.35-7.45 PCO2 (test code = See_Comment [Automat ed message] 1379936020) The system tok tok tokic h generated this result transmit britney reference range : 35 - 45 mmHg. The reference range was not used to interpret this result as normal/abnormal . PO2 (test code = See_Comment H [Automated message] 2211573205) The system tok tok tok[employer] generated this result transmit britney reference range : 80 - 100 mmHg. The reference range was not used to interpret this result as normal/abnormal . HCO3 (test code = See_Comment [Automate d message] 3406934279) The system tok tok tok[employer] h generated this result transmit britney reference range : 22 - 26 mEq/L. The reference range was not used to interpret this result as normal/abnormal . BE (test code = See_Comment [Automated message] 3023785030) The system tok tok tokic h generated this result transmit britney reference range : -3.0 - 3.0 mEq/ L. The reference r nicholas was not used to interpret this result as normal/abnormal . THB (test code = 13.0 g/dL 12.0-16.0 2770450425) %O2HB (test code = 98.9 % 94.0-99.0 6280134558) %COHB ART (test code = 0.3 % 0.0-1.5 5043020099) %METHB ART (test code = 0.0 % 0.4-1.5 L 6913015808) VOL%O2 ART (test code = 18.5 % 15.0-23.0 8929859511) NA (test code = 139 mmol/L 135-145 1454588697) K+ (test code = 4.6 mmol/L 3.5-5.0 4943729549) AC CA IONZ (test code = 4.50 mg/dL 4.50-5.30 3651237582) GLUCOSE (test code = 166 mg/dL 70-110 H 1256250317) Lab Interpretation Abnormal (test code = 31426-4) [facility]+COOX+NA+K+GLU+CA2+2021-10-17 21:42:22 Test Item Value Reference Range Interpretation Comments PH (test code = 2) 7.35-7.45 PCO2 (test code = See_Comment [Automat ed message] 2777566019) The system tok tok tokic h generated this result transmit britney reference range : 35 - 45 mmHg. The reference range was not used to interpret this result as normal/abnormal . PO2 (test code = See_Comment H [Automated message] 3685995421) The system ic h generated this result transmit britney reference range : 80 - 100 mmHg. The reference range was not used to interpret this result as normal/abnormal . HCO3 (test code = See_Comment [Automate d message] 5002621469) The system ic h generated this result transmit britney reference range : 22 - 26 mEq/L. The reference range was not used to interpret this result as normal/abnormal . BE (test code = See_Comment [Automated message] 5899914972) The system tok tok tokic h generated this result transmit britney reference range : -3.0 - 3.0 mEq/ L. The reference r nicholas was not used to interpret this result as normal/abnormal . THB (test code = 13.0 g/dL 12.0-16.0 3185045017) %O2HB (test code = 98.9 % 94.0-99.0 8159303676) %COHB ART (test code = 0.3 % 0.0-1.5 7740394286) %METHB ART (test code = 0.0 % 0.4-1.5 L 8499138491) VOL%O2 ART (test code = 18.5 % 15.0-23.0 9965859457) NA (test code = 139 mmol/L 135-145 0147634455) K+ (test code = 4.6 mmol/L 3.5-5.0 5435376416) AC CA IONZ (test code = 4.50 mg/dL 4.50-5.30 6796299944) GLUCOSE (test code = 166 mg/dL 70-110 H 0240613667) Lab Interpretation Abnormal (test code = 28100-2) [facility] WITH [id number] 11:01:03 Test Item Value Reference Range Interpretation [...] RDW-SD (test code = 44.5 fL 39.0-49.9 18424-6) RDW-CV (test code = 14.1 % 12.0-15.5 788-0) PLT (test code = See_Comment [Automated 777-3) message] The system which generated this result transmit britney reference range : 166 - 358 10*3/ ?L. The reference range was not u sed to interpret th is result as normal/abnormal . MPV (test code = 11.0 fL 9.5-12.9 64348-6) NRBC/100 WBC (test See_Comment [Automat ed code = 2863111611) message] The system which generated this result transmit britney reference range : 0.0 - 10.0 /100 WBCs. The reference range was not used to interpret this result as normal/abnormal . NRBC x10^3 (test code <0.01 See_Comment [Auto mated = 0107867216) message] The system which generated this result transmit britney reference range : 10*3/?L. The reference range was not used to interpret this result as normal/abnormal . GRAN MAT (NEUT) % 91.6 % (test code = 770-8) IMM GRAN % (test code 1.40 % = 3863502368) LYMPH % (test code = 5.5 % 736-9) MONO % (test code = 1.4 % 5905-5) EOS % (test code = 0.0 % 713-8) BASO % (test code = 0.1 % 706-2) GRAN MAT x10^3(ANC) 17.75 10*3/uL 1.88-7.09 H (test code = 5341805413) IMM GRAN x10^3 (test 0.27 10*3/uL 0.00-0.06 H code = 7900363300) LYMPH x10^3 (test code 1.06 10*3/uL 1.32-3.29 L = 731-0) MONO x10^3 (test code 0.28 10*3/uL 0.33-0.92 L = 742-7) EOS x10^3 (test code = <0.03 0.03-0.39 L 711-2) BASO x10^3 (test code <0.03 0.01-0.07 = 704-7) TOXIC CHANGES (test Present A code = 803-7) Lab Interpretation Abnormal (test code = 15277-5) [facility] WITH [id number] 11:01:03 Test Item Value Reference Range Interpretation Comments WBC (test code = See_Comment H [Automated 0890-2) message] The system which generated this result transmit britney reference range : 4.30 - 11.10 10*3/?L. The reference range was not used to interpret this result as normal/abnormal . RBC (test code = See_Comment [Automated 599-8) message] The system which generated this result [...] RDW-SD (test code = 44.5 fL 39.0-49.9 70841-5) RDW-CV (test code = 14.1 % 12.0-15.5 788-0) PLT (test code = See_Comment [Automated 777-3) message] The system which generated this result transmit britney reference range : 166 - 358 10*3/ ?L. The reference range was not u sed to interpret th is result as normal/abnormal . MPV (test code = 11.0 fL 9.5-12.9 28553-8) NRBC/100 WBC (test See_Comment [Automat ed code = [id number]) message] The system which generated this result transmit [place] reference range : 0.0 - 10.0 /100 WBCs. The reference range was not used to interpret this result as normal/abnormal . NRBC x10^3 (test code <0.01 See_Comment [Auto mated = [id number]) message] The system which generated this result transmit [place] reference range : 10*3/?L. The reference range was not used to interpret this result as normal/abnormal . GRAN MAT (NEUT) % 91.6 % (test code = 770-8) IMM GRAN % (test code 1.40 % = 6826368820) LYMPH % (test code = 5.5 % 736-9) MONO % (test code = 1.4 % 5905-5) EOS % (test code = 0.0 % 713-8) BASO % (test code = 0.1 % 706-2) GRAN MAT x10^3(ANC) 17.75 10*3/uL 1.88-7.09 H (test code = 4414501581) IMM GRAN x10^3 (test 0.27 10*3/uL 0.00-0.06 H code = 4209986870) LYMPH x10^3 (test code 1.06 10*3/uL 1.32-3.29 L = 731-0) MONO x10^3 (test code 0.28 10*3/uL 0.33-0.92 L = 742-7) EOS x10^3 (test code = <0.03 0.03-0.39 L 711-2) BASO x10^3 (test code <0.03 0.01-0.07 = 704-7) TOXIC CHANGES (test Present A code = 803-7) Lab Interpretation Abnormal (test code = 74440-1) [facility] METABOLIC PANEL (NA, K, CL, CO2, GLUCOSE, BUN, CREATININE, CA)2021-10-17 10:54:32 Test Item Value Reference Range Interpretation Comments NA (test code = 135 mmol/L 135-145 1045584437) K (test code = 5.2 mmol/L 3.5-5.0 H Slight 8340780736) hemolysis CL (test code = 101 mmol/L 98-108 1911905648) CO2 TOTAL (test code 27 mmol/L 23-31 = 4745221846) AGAP (test code = 2-16 4146022769) BUN (test code = 21 mg/dL 7-23 Slight 1146381446) hemolysis GLUCOSE (test code = 153 mg/dL 70-110 H 8625107539) CREATININE (test code 0.71 mg/dL 0.50-1.04 = 0503978469) CALCIUM (test code = 8.3 mg/dL 8.6-10.6 L 7606419012) eGFR (test code = mL/min/1.73m2 2056807224) LUCILLE (test code = LUCILLE) Association of [...] tests). Lab Interpretation Abnormal (test code = 13765-7) [facility] 10:54:32 Test Item Value Reference Range Interpretation Comments MAGNESIUM (test code = 0768946637) 2.2 mg/dL 1.7-2.4 Lab Interpretation (test code = Normal 17131-3) [facility]2022[facility]14 10:54:32 Test Item Value Reference Range Interpretation Comments PHOSPHORUS (test code = 2485385934) 5.9 mg/dL 2.5-5.0 H Lab Interpretation (test code = Abnormal 08719-1) [facility] (NA, K, CL, CO2, GLUCOSE, BUN, CREATININE, CA)2021-10-17 10:54:32 Test Item Value Reference Range Interpretation Comments NA (test code = 135 mmol/L 135-145 3994276421) K (test code = 5.2 mmol/L 3.5-5.0 H Slight 6341523851) hemolysis CL (test code = 101 mmol/L 98-108 3385930306) CO2 TOTAL (test code 27 mmol/L 23-31 = 5937324149) AGAP (test code = 2-16 1382904686) BUN (test code = 21 mg/dL 7-23 Slight 3763536816) hemolysis GLUCOSE (test code = 153 mg/dL 70-110 H 4032011154) CREATININE (test code 0.71 mg/dL 0.50-1.04 = 3378972419) CALCIUM (test code = 8.3 mg/dL 8.6-10.6 L 7693513877) eGFR (test code = mL/min/1.73m2 2906963152) LUCILLE (test code = LUCILLE) Association of [...] tests). Lab Interpretation Abnormal (test code = 87809-1) [facility]14 10:54:32 Test Item Value Reference Range Interpretation Comments MAGNESIUM (test code = 3783819375) 2.2 mg/dL 1.7-2.4 Lab Interpretation (test code = Normal 88863-3) [facility]22-[facility]14 10:54:32 Test Item Value Reference Range Interpretation Comments PHOSPHORUS (test code = 8262171669) 5.9 mg/dL 2.5-5.0 H Lab Interpretation (test code = Abnormal 21351-6) [facility] [id number] 10:53:06 Test Item Value Reference Range Interpretation Comments ESR (test code = See_Comment H [Automated message] 7396254906) The system Diana generated this result transmitted ref erence range: 0 - 20 m m/HR. The reference r nicholas was not used to interpret this result as normal/abnor mal. Lab Interpretation (test Abnormal code = 33989-6) [facility] [id number] 10:53:06 Test Item Value Reference Range Interpretation Comments ESR (test code = See_Comment H [Automated message] 5642541887) The system Diana generated this result transmitted ref erence range: 0 - 20 m m/HR. The reference r nicholas was not used to interpret this result as normal/abnor mal. Lab Interpretation (test Abnormal code = 02721-4) [facility]2022-[facility]-13 11:13:05 Test Item Value Reference Range Interpretation Comments MAGNESIUM (test code = 2230945473) 2.3 mg/dL 1.7-2.4 Lab Interpretation (test code = Normal 26227-2) [facility]2022-[facility]-13 11:13:05 Test Item Value Reference Range Interpretation Comments PHOSPHORUS (test code = 2989578461) 3.4 mg/dL 2.5-5.0 Lab Interpretation (test code = Normal 50303-5) [facility]2022-[facility]-13 11:13:05 Test Item Value Reference Range Interpretation Comments MAGNESIUM (test code = 5912038284) 2.3 mg/dL 1.7-2.4 Lab Interpretation (test code = Normal 03715-2) [facility]2022-[facility]-13 11:13:05 Test Item Value Reference Range Interpretation Comments PHOSPHORUS (test code = 5894890447) 3.4 mg/dL 2.5-5.0 Lab Interpretation (test code = Normal 35342-2) [facility] (NA, K, CL, CO2, GLUCOSE, BUN, CREATININE, CA)2021-10-16 11:13:04 Test Item Value Reference Range Interpretation Comments NA (test code = 135 mmol/L 135-145 6227529148) K (test code = 4.6 mmol/L 3.5-5.0 1542435726) CL (test code = 102 mmol/L 98-108 2822848255) CO2 TOTAL (test code = 29 mmol/L 23-31 8835335127) AGAP (test code = 2-16 3351150671) BUN (test code = 24 mg/dL 7-23 H 4591671139) GLUCOSE (test code = 90 mg/dL 70-110 6660294365) CREATININE (test code = 0.87 mg/dL 0.50-1.04 7100236952) CALCIUM (test code = 8.0 mg/dL 8.6-10.6 L 4656141184) eGFR (test code = mL/min/1.73m2 8770749388) LUCILLE (test code = LUCILLE) Association of [...] tests). Lab Interpretation Abnormal (test code = 39726-3) [facility] METABOLIC PANEL (NA, K, CL, CO2, GLUCOSE, BUN, CREATININE, CA)2021-10-16 11:13:04 Test Item Value Reference Range Interpretation Comments NA (test code = 135 mmol/L 135-145 9552884264) K (test code = 4.6 mmol/L 3.5-5.0 8009607415) CL (test code = 102 mmol/L 98-108 2666966043) CO2 TOTAL (test code = 29 mmol/L 23-31 8904646141) AGAP (test code = 2-16 0613572482) BUN (test code = 24 mg/dL 7-23 H 0415286198) GLUCOSE (test code = 90 mg/dL 70-110 8422114755) CREATININE (test code = 0.87 mg/dL 0.50-1.04 6877954572) CALCIUM (test code = 8.0 mg/dL 8.6-10.6 L 8269847740) eGFR (test code = mL/min/1.73m2 0567943963) LUCILLE (test code = LUCILLE) Association of [...] tests). Lab Interpretation Abnormal (test code = 32293-5) [facility] 20 + LACTIC [id number] 10:59:55 Test Item Value Reference Range Interpretation Comments PH (test code = 2) 7.35-7.45 PCO2 (test code = See_Comment [Automat ed 3645865280) message] The sy stem which generated this result transmitted reference range : 35 - 45 mmHg. The reference range was not used to interpret this result as normal/abnormal . PO2 (test code = See_Comment L [Automated 7983751657) message] The sy stem which generated this result transmitted reference range : 80 - 100 mmHg. The reference range was not used to interpret this result as normal/abnormal . HCO3 (test code = See_Comment H [Automate d 8568472427) message] The sy stem which generated this result transmitted reference range : 22 - 26 mEq/L. The reference range was not used to interpret this result as normal/abnormal . BE (test code = See_Comment [Automated 5956501472) message] The sy stem which generated this result transmitted reference range : -3.0 - 3.0 mEq/ L. The reference r nicholas was not used to interpret this result as normal/abnormal . THB (test code = 13.7 g/dL 12.0-16.0 1548952328) %O2HB (test code = 86.3 % 94.0-99.0 L 4319166640) %COHB ART (test code = 0.1 % 0.0-1.5 0936312520) %METHB ART (test code = 0.1 % 0.4-1.5 L 4471608868) VOL%O2 ART (test code = 16.6 % 15.0-23.0 9114240918) NA (test code = 135 mmol/L 135-145 8545840023) K+ (test code = 4.6 mmol/L 3.5-5.0 2945824444) AC CA IONZ (test code = 4.70 mg/dL 4.50-5.30 8473712232) GLUCOSE (test code = 88 mg/dL 70-110 7330755370) LACTIC ACID (test code 1.41 mmol/L 0.50-2.20 QUES = 8953918534) Lab Interpretation Abnormal (test code = 39354-5) [facility] 20 + LACTIC [id number] 10:59:55 Test Item Value Reference Range Interpretation Comments PH (test code = 2) 7.35-7.45 PCO2 (test code = See_Comment [Automat ed 8190763925) message] The sy stem which generated this result transmitted reference range : 35 - 45 mmHg. The reference range was not used to interpret this result as normal/abnormal . PO2 (test code = See_Comment L [Automated 0844689638) message] The sy stem which generated this result transmitted reference range : 80 - 100 mmHg. The reference range was not used to interpret this result as normal/abnormal . HCO3 (test code = See_Comment H [Automate d 6950973073) message] The sy stem which generated this result transmitted reference range : 22 - 26 mEq/L. The reference range was not used to interpret this result as normal/abnormal . BE (test code = See_Comment [Automated 6146550212) message] The sy stem which generated this result transmitted reference range : -3.0 - 3.0 mEq/ L. The reference r nicholas was not used to interpret this result as normal/abnormal . THB (test code = 13.7 g/dL 12.0-16.0 7524292368) %O2HB (test code = 86.3 % 94.0-99.0 L 3478506891) %COHB ART (test code = 0.1 % 0.0-1.5 0843939035) %METHB ART (test code = 0.1 % 0.4-1.5 L 0820045637) VOL%O2 ART (test code = 16.6 % 15.0-23.0 1345878377) NA (test code = 135 mmol/L 135-145 7331137330) K+ (test code = 4.6 mmol/L 3.5-5.0 3203905766) AC CA IONZ (test code = 4.70 mg/dL 4.50-5.30 7021877139) GLUCOSE (test code = 88 mg/dL 70-110 3420932103) LACTIC ACID (test code 1.41 mmol/L 0.50-2.20 QUES = 7222019845) Lab Interpretation Abnormal (test code = 52807-2) [facility] [id number] 10:54:01 Test Item Value Reference Range Interpretation [...] RDW-SD (test code = 47.0 fL 39.0-49.9 32747-3) RDW-CV (test code = 14.6 % 12.0-15.5 788-0) PLT (test code = See_Comment [Automated 777-3) message] The system which generated this result transmit britney reference range : 166 - 358 10*3/ ?L. The reference range was not u sed to interpret th is result as normal/abnormal . MPV (test code = 10.5 fL 9.5-12.9 03840-9) NRBC/100 WBC (test See_Comment [Automat ed code = 0529642264) message] The system which generated this result transmit britney reference range : 0.0 - 10.0 /100 WBCs. The reference range was not used to interpret this result as normal/abnormal . NRBC x10^3 (test code See_Comment [Auto mated = 3165975862) message] The system which generated this result transmit britney reference range : 10*3/?L. The reference range was not used to interpret this result as normal/abnormal . GRAN MAT (NEUT) % 85.6 % (test code = 770-8) IMM GRAN % (test code 1.10 % = 4028279392) LYMPH % (test code = 9.7 % 736-9) MONO % (test code = 3.0 % 5905-5) EOS % (test code = 0.5 % 713-8) BASO % (test code = 0.1 % 706-2) GRAN MAT x10^3(ANC) 12.97 10*3/uL 1.88-7.09 H (test code = 2666397622) IMM GRAN x10^3 (test 0.16 10*3/uL 0.00-0.06 H code = 4176041485) LYMPH x10^3 (test code 1.47 10*3/uL 1.32-3.29 = 731-0) MONO x10^3 (test code 0.45 10*3/uL 0.33-0.92 = 742-7) EOS x10^3 (test code = 0.08 10*3/uL 0.03-0.39 711-2) BASO x10^3 (test code <0.03 0.01-0.07 = 704-7) Lab Interpretation Abnormal (test code = 79058-8) [facility] WITH [id number] 10:54:01 Test Item Value Reference Range Interpretation Comments WBC (test code = See_Comment H [Automated 8490-2) message] The system which generated this result transmit britney reference range : 4.30 - 11.10 10*3/?L. The reference range was not used to interpret this result as normal/abnormal . RBC (test code = See_Comment [Automated 419-8) message] The system which generated this result [...] RDW-SD (test code = 47.0 fL 39.0-49.9 52306-5) RDW-CV (test code = 14.6 % 12.0-15.5 788-0) PLT (test code = See_Comment [Automated 777-3) message] The system which generated this result transmit britney reference range : 166 - 358 10*3/ ?L. The reference range was not u sed to interpret th is result as normal/abnormal . MPV (test code = 10.5 fL 9.5-12.9 59784-5) NRBC/100 WBC (test See_Comment [Automat ed code = 0101068124) message] The system which generated this result transmit britney reference range : 0.0 - 10.0 /100 WBCs. The reference range was not used to interpret this result as normal/abnormal . NRBC x10^3 (test code See_Comment [Auto mated = 0469429029) message] The system which generated this result transmit britney reference range : 10*3/?L. The reference range was not used to interpret this result as normal/abnormal . GRAN MAT (NEUT) % 85.6 % (test code = 770-8) IMM GRAN % (test code 1.10 % = 9925366655) LYMPH % (test code = 9.7 % 736-9) MONO % (test code = 3.0 % 5905-5) EOS % (test code = 0.5 % 713-8) BASO % (test code = 0.1 % 706-2) GRAN MAT x10^3(ANC) 12.97 10*3/uL 1.88-7.09 H (test code = 5186483115) IMM GRAN x10^3 (test 0.16 10*3/uL 0.00-0.06 H code = 2348827206) LYMPH x10^3 (test code 1.47 10*3/uL 1.32-3.29 = 731-0) MONO x10^3 (test code 0.45 10*3/uL 0.33-0.92 = 742-7) EOS x10^3 (test code = 0.08 10*3/uL 0.03-0.39 711-2) BASO x10^3 (test code <0.03 0.01-0.07 = 704-7) Lab Interpretation Abnormal (test code = 35006-1) [facility] [id number] 23:24:07 Test Item Value Reference Range Interpretation Comments CRP (test code = 6343775882) 22.1 mg/dL <1.0 H Lab Interpretation (test code = Abnormal 53978-7) [facility] [id number] 23:24:07 Test Item Value Reference Range Interpretation Comments CRP (test code = 1333262322) 22.1 mg/dL <1.0 H Lab Interpretation (test code = Abnormal 14372-2) [facility] [id number] 23:21:42 Test Item Value Reference Interpretation Comments Range TROPONIN I (test 0.003 ng/mL See_Comment [Automated code = 5452775799) message] The system which generated this result [...] biotin. Lab Interpretation Normal (test code = 63112-0) [facility] [id number] 23:21:42 Test Item Value Reference Interpretation Comments Range TROPONIN I (test 0.003 ng/mL See_Comment [Automated code = 5993469087) message] The system which generated this result [...] biotin. Lab Interpretation Normal (test code = 43708-9) [facility] METABOLIC PANEL (NA, K, CL, CO2, GLUCOSE, BUN, CREATININE, CA)2021-10-15 23:12:40 Test Item Value Reference Range Interpretation Comments NA (test code = 136 mmol/L 135-145 0290301802) K (test code = 4.8 mmol/L 3.5-5.0 4178664451) CL (test code = 104 mmol/L 98-108 1381311209) CO2 TOTAL (test code = 26 mmol/L 23-31 2107198393) AGAP (test code = 2-16 7261575408) BUN (test code = 22 mg/dL 7-23 2483298223) GLUCOSE (test code = 114 mg/dL 70-110 H 0863248026) CREATININE (test code = 0.77 mg/dL 0.50-1.04 0882096981) CALCIUM (test code = 8.2 mg/dL 8.6-10.6 L 4354633773) eGFR (test code = mL/min/1.73m2 5972852616) LUCILLE (test code = LUCILLE) Association of [...] tests). Lab Interpretation Abnormal (test code = 41548-8) [facility] METABOLIC PANEL (NA, K, CL, CO2, GLUCOSE, BUN, CREATININE, CA)2021-10-15 23:12:40 Test Item Value Reference Range Interpretation Comments NA (test code = 136 mmol/L 135-145 4469400790) K (test code = 4.8 mmol/L 3.5-5.0 9174826376) CL (test code = 104 mmol/L 98-108 1019251981) CO2 TOTAL (test code = 26 mmol/L 23-31 3443881454) AGAP (test code = 2-16 8334437063) BUN (test code = 22 mg/dL 7-23 6385009034) GLUCOSE (test code = 114 mg/dL 70-110 H 1693304015) CREATININE (test code = 0.77 mg/dL 0.50-1.04 6963395868) CALCIUM (test code = 8.2 mg/dL 8.6-10.6 L 1212068500) eGFR (test code = mL/min/1.73m2 8868971183) LUCILLE (test code = LUCILLE) Association of [...] tests). Lab Interpretation Abnormal (test code = 49228-5) [facility] [id number] 21:55:57 Test Item Value Reference Interpretation Comments Range TROPONIN I (test 0.003 ng/mL See_Comment [Automated code = 3137183274) message] The system which generated this result [...] biotin. Lab Interpretation Normal (test code = 92324-6) [facility] [id number] 21:55:57 Test Item Value Reference Interpretation Comments Range TROPONIN I (test 0.003 ng/mL See_Comment [Automated code = 2279892636) message] The system which generated this result [...] biotin. Lab Interpretation Normal (test code = 05507-4) [facility]2022-[facility]-12 19:07:46 Test Item Value Reference Range Interpretation Comments Procalcitonin (test 0.15 ng/mL <0.08 H code = 6244346722) LUCILLE (test code = LUCILLE) INTERPRETATION OF [...] lung abscess/empyema. For further information please refer to:[email or web address] Lab Interpretation Abnormal (test code = 77536-6) [facility]2022-02-12 19:07:46 Test Item Value Reference Range Interpretation Comments Procalcitonin (test 0.15 ng/mL <0.08 H code = 1390438071) LUCILLE (test code = LUCILLE) INTERPRETATION OF [...] lung abscess/empyema. For further information please refer to:[email or web address] Lab Interpretation Abnormal (test code = 53436-8) [facility] [id number] 18:31:24 Test Item Value Reference Range Interpretation Comments NT-proBNP (test code 43 pg/mL See_Comment [Autom ated = 9662063974) message] The system which generated this result transmitted reference range : <=125. The reference range was not used to interpret this result as normal/abnormal . LUCILLE (test code = LUCILLE) Biotin has been reported to cause a negative bias, interpret results relative to patient's use of biotin. Lab Interpretation Normal (test code = 95987-1) [facility] [id number] 18:31:24 Test Item Value Reference Range Interpretation Comments NT-proBNP (test code 43 pg/mL See_Comment [Autom ated = 3704576702) message] The system which generated this result transmitted reference range : <=125. The reference range was not used to interpret this result as normal/abnormal . LUCILLE (test code = LUCILLE) Biotin has been reported to cause a negative bias, interpret results relative to patient's use of biotin. Lab Interpretation Normal (test code = 27006-5) [facility]2022-02-12 09:17:58 Test Item Value Reference Range Interpretation Comments Procalcitonin (test 0.15 ng/mL <0.08 H code = 4169252856) LUCILLE (test code = LUCILLE) INTERPRETATION OF [...] lung abscess/empyema. For further information please refer to:[email or web address] Lab Interpretation Abnormal (test code = 77952-9) [facility]2022-02-12 09:17:58 Test Item Value Reference Range Interpretation Comments Procalcitonin (test 0.15 ng/mL <0.08 H code = 9135902759) LUCILLE (test code = LUCILLE) INTERPRETATION OF [...] lung abscess/empyema. For further information please refer to:[email or web address] Lab Interpretation Abnormal (test code = 86250-5) [facility] METABOLIC PANEL (NA, K, CL, CO2, GLUCOSE, BUN, CREATININE, CA)2021-10-15 08:36:11 Test Item Value Reference Range Interpretation Comments NA (test code = 139 mmol/L 135-145 3739555431) K (test code = 5.5 mmol/L 3.5-5.0 H Slight 3081549597) hemolysis CL (test code = 104 mmol/L 98-108 9794102597) CO2 TOTAL (test code 29 mmol/L 23-31 = 5790223758) AGAP (test code = 2-16 3089029004) BUN (test code = 17 mg/dL 7-23 Slight 4237361703) hemolysis GLUCOSE (test code = 131 mg/dL 70-110 H 2935280001) CREATININE (test code 0.77 mg/dL 0.50-1.04 = 0468009600) CALCIUM (test code = 8.5 mg/dL 8.6-10.6 L 1238303599) eGFR (test code = mL/min/1.73m2 6279519967) LUCILLE (test code = LUCILLE) Association of [...] tests). Lab Interpretation Abnormal (test code = 27275-1) [facility] [id number] 08:36:11 Test Item Value Reference Range Interpretation Comments MAGNESIUM (test code = 8207908253) 2.4 mg/dL 1.7-2.4 Lab Interpretation (test code = Normal 05858-6) [facility] (NA, K, CL, CO2, GLUCOSE, BUN, CREATININE, CA)2021-10-15 08:36:11 Test Item Value Reference Range Interpretation Comments NA (test code = 139 mmol/L 135-145 7067978224) K (test code = 5.5 mmol/L 3.5-5.0 H Slight 6533478045) hemolysis CL (test code = 104 mmol/L 98-108 0253115847) CO2 TOTAL (test code 29 mmol/L 23-31 = 8511418504) AGAP (test code = 2-16 6193823565) BUN (test code = 17 mg/dL 7-23 Slight 6278801794) hemolysis GLUCOSE (test code = 131 mg/dL 70-110 H 1024743667) CREATININE (test code 0.77 mg/dL 0.50-1.04 = 9514043134) CALCIUM (test code = 8.5 mg/dL 8.6-10.6 L 2614713405) eGFR (test code = mL/min/1.73m2 4667410795) LUCILLE (test code = LUCILLE) Association of [...] tests). Lab Interpretation Abnormal (test code = 15074-8) [facility] DallasMagens[facility] [id number] 08:36:11 Test Item Value Reference Range Interpretation Comments MAGNESIUM (test code = 8793904805) 2.4 mg/dL 1.7-2.4 Lab Interpretation (test code = Normal 34026-5) [facility] DallasTroponin [id number] 08:21:08 Test Item Value Reference Interpretation Comments Range TROPONIN I (test 0.005 ng/mL See_Comment [Automated code = 6297575539) message] The system which generated this result [...] biotin. Lab Interpretation Normal (test code = 87409-4) [facility] DallasTroponin [id number] 08:21:08 Test Item Value Reference Interpretation Comments Range TROPONIN I (test 0.005 ng/mL See_Comment [Automated code = 5633905216) message] The system which generated this result [...] biotin. Lab Interpretation Normal (test code = 86455-1) [facility] DallasCB WITH [id number] 07:37:26 Test Item Value Reference Range Interpretation Comments WBC (test code = See_Comment H [Automated 7490-2) message] The system which generated this result [...] RDW-SD (test code = 47.4 fL 39.0-49.9 46263-6) RDW-CV (test code = 14.6 % 12.0-15.5 788-0) PLT (test code = See_Comment [Automated 777-3) message] The system which generated this result transmit britney reference range : 166 - 358 10*3/ ?L. The reference range was not u sed to interpret th is result as normal/abnormal . MPV (test code = 11.1 fL 9.5-12.9 11832-6) NRBC/100 WBC (test See_Comment [Automat ed code = 0265964438) message] The system which generated this result transmit britney reference range : 0.0 - 10.0 /100 WBCs. The reference range was not used to interpret this result as normal/abnormal . NRBC x10^3 (test code <0.01 See_Comment [Auto mated = 3106965907) message] The system which generated this result transmit britney reference range : 10*3/?L. The reference range was not used to interpret this result as normal/abnormal . GRAN MAT (NEUT) % 92.0 % (test code = 770-8) IMM GRAN % (test code 1.10 % = 5668972088) LYMPH % (test code = 5.0 % 736-9) MONO % (test code = 1.8 % 5905-5) EOS % (test code = 0.0 % 713-8) BASO % (test code = 0.1 % 706-2) GRAN MAT x10^3(ANC) 20.65 10*3/uL 1.88-7.09 H (test code = 6138107531) IMM GRAN x10^3 (test 0.25 10*3/uL 0.00-0.06 H code = 3011068867) LYMPH x10^3 (test code 1.13 10*3/uL 1.32-3.29 L = 731-0) MONO x10^3 (test code 0.40 10*3/uL 0.33-0.92 = 742-7) EOS x10^3 (test code = <0.03 0.03-0.39 L 711-2) BASO x10^3 (test code 0.03 10*3/uL 0.01-0.07 = 704-7) Lab Interpretation Abnormal (test code = 05283-9) [facility] WITH [id number] 07:37:26 Test Item Value Reference Range Interpretation Comments WBC (test code = See_Comment H [Automated 6229-2) message] The system which generated this result transmit britney reference range : 4.30 - 11.10 10*3/?L. The reference range was not used to interpret this result as normal/abnormal . RBC (test code = See_Comment [Automated 369-8) message] The system which generated this result [...] RDW-SD (test code = 47.4 fL 39.0-49.9 22804-6) RDW-CV (test code = 14.6 % 12.0-15.5 788-0) PLT (test code = See_Comment [Automated 587-3) message] The system which generated this result transmit britney reference range : 166 - 358 10*3/ ?L. The reference range was not u sed to interpret th is result as normal/abnormal . MPV (test code = 11.1 fL 9.5-12.9 44856-4) NRBC/100 WBC (test See_Comment [Automat ed code = 0895877943) message] The system which generated this result transmit britney reference range : 0.0 - 10.0 /100 WBCs. The reference range was not used to interpret this result as normal/abnormal . NRBC x10^3 (test code <0.01 See_Comment [Auto mated = 5245830246) message] The system which generated this result transmit britney reference range : 10*3/?L. The reference range was not used to interpret this result as normal/abnormal . GRAN MAT (NEUT) % 92.0 % (test code = 770-8) IMM GRAN % (test code 1.10 % = 5879857086) LYMPH % (test code = 5.0 % 736-9) MONO % (test code = 1.8 % 5905-5) EOS % (test code = 0.0 % 713-8) BASO % (test code = 0.1 % 706-2) GRAN MAT x10^3(ANC) 20.65 10*3/uL 1.88-7.09 H (test code = 6364050161) IMM GRAN x10^3 (test 0.25 10*3/uL 0.00-0.06 H code = 3354447736) LYMPH x10^3 (test code 1.13 10*3/uL 1.32-3.29 L = 731-0) MONO x10^3 (test code 0.40 10*3/uL 0.33-0.92 = 742-7) EOS x10^3 (test code = <0.03 0.03-0.39 L 711-2) BASO x10^3 (test code 0.03 10*3/uL 0.01-0.07 = 704-7) Lab Interpretation Abnormal (test code = 58403-7) [facility]GLU[facility]CA2+2021-10-15 07:28:14 Test Item Value Reference Range Interpretation Comments PH (test code = 2) 7.35-7.45 PCO2 (test code = See_Comment [Automat ed message] [id number]) The system Diana generated this result transmit britney reference range : 35 - 45 mmHg. The reference range was not used to interpret this result as normal/abnormal . PO2 (test code = See_Comment H [Automated message] [id number]) The system Diana generated this result transmit britney reference range : 80 - 100 mmHg. The reference range was not used to interpret this result as normal/abnormal . HCO3 (test code = See_Comment [Automate d message] [id number]) The system Diana generated this result transmit britney reference range : 22 - 26 mEq/L. The reference range was not used to interpret this result as normal/abnormal . BE (test code = See_Comment [Automated message] 4799687994) The system Diana generated this result transmit britney reference range : -3.0 - 3.0 mEq/ L. The reference r nicholas was not used to interpret this result as normal/abnormal . THB (test code = 13.1 g/dL 12.0-16.0 7042335925) %O2HB (test code = 98.7 % 94.0-99.0 6715007597) %COHB ART (test code = 0.4 % 0.0-1.5 1821596390) %METHB ART (test code = 0.0 % 0.4-1.5 L 4270513757) VOL%O2 ART (test code = 18.5 % 15.0-23.0 QUES 5444071927) NA (test code = 138 mmol/L 135-145 8637805260) K+ (test code = 5.0 mmol/L 3.5-5.0 7152227792) AC CA IONZ (test code = 4.50 mg/dL 4.50-5.30 7563975793) GLUCOSE (test code = 138 mg/dL 70-110 H 4105783790) Lab Interpretation Abnormal (test code = 56993-2) [facility]+NA+K+GLU+CA2+2021-10-15 07:28:14 Test Item Value Reference Range Interpretation Comments PH (test code = 2) 7.35-7.45 PCO2 (test code = See_Comment [Automat ed message] [id number]) The system Diana generated this result transmit britney reference range : 35 - 45 mmHg. The reference range was not used to interpret this result as normal/abnormal . PO2 (test code = See_Comment H [Automated message] 9375390898) The system tok tok tokic h generated this result transmit britney reference range : 80 - 100 mmHg. The reference range was not used to interpret this result as normal/abnormal . HCO3 (test code = See_Comment [Automate d message] 5191482415) The system Diana generated this result transmit britney reference range : 22 - 26 mEq/L. The reference range was not used to interpret this result as normal/abnormal . BE (test code = See_Comment [Automated message] 7369943099) The system Diana generated this result transmit britney reference range : -3.0 - 3.0 mEq/ L. The reference r nicholas was not used to interpret this result as normal/abnormal . THB (test code = 13.1 g/dL 12.0-16.0 6508966757) %O2HB (test code = 98.7 % 94.0-99.0 0459382158) %COHB ART (test code = 0.4 % 0.0-1.5 5674052622) %METHB ART (test code = 0.0 % 0.4-1.5 L 5420793144) VOL%O2 ART (test code = 18.5 % 15.0-23.0 QUES 1608809426) NA (test code = 138 mmol/L 135-145 1424784636) K+ (test code = 5.0 mmol/L 3.5-5.0 2833384786) AC CA IONZ (test code = 4.50 mg/dL 4.50-5.30 5921476357) GLUCOSE (test code = 138 mg/dL 70-110 H 3689949582) Lab Interpretation Abnormal (test code = 04894-4) [facility]
[2022-03-27] MEDS ORDERED: CYCLOBENZAPRINE 10 MG TAB ONE (00:52)
[2022-03-27] MEDS ORDERED: HYDROCODONE/APAP 5/325 MG TAB ONE (00:52)
--- NOTE | 2022-03-27 03:57 | ER ---
Nurse's Notes [facility] Name: Nancie Ordonez Age: 51 yrs Sex: Female : 1970 Arrival Date: 03/26/2022 Time: 23:47 Bed 16 Private MD: Diagnosis: Pain in right shoulder Presentation: 03/26 23:57 Chief complaint: Patient's son or daughter states: "She fell earlier today, she was vc1 wrapping the cord around her breathing machine and fell.". Risk Assessment: Do you want to hurt yourself or someone else? Patient reports no desire to harm self or others. Onset of symptoms was March 26, 2022. 23:57 Method Of Arrival: Wheelchair vc1 23:57 Acuity: DEEPALI 4 vc1 03/27 00:03 Coronavirus screen: Vaccine status: Patient reports receiving the 2nd dose of the covid vc1 vaccine. At this time, the client does not indicate any symptoms associated with coronavirus-19. Ebola Screen: No symptoms or risks identified at this time. 00:04 Initial Sepsis Screen: Does the patient meet any 2 criteria? No. Patient's initial vc1 sepsis screen is negative. Does the patient have a suspected source of infection? No. Patient's initial sepsis screen is negative. 02:33 Care prior to arrival: None. Mechanism of Injury: Fall. Trauma event details: Injury lg3 occurred in the [facility]. Triage Assessment: 03/26 23:59 General: Appears in no apparent distress. uncomfortable, Behavior is anxious, vc1 Talkative. Pain: Complains of pain in anterior aspect of right shoulder and posterior aspect of right shoulder Pain does not radiate. Pain currently is 10 out of 10 on a pain scale. Neuro: Level of Consciousness is awake, alert, Oriented to person, place, situation. Cardiovascular: No deficits noted. Respiratory: Airway is patent Respiratory effort is even, unlabored, Respiratory pattern is regular, symmetrical. GI: No deficits noted. : No signs and/or symptoms were reported regarding the genitourinary system. : No deficits noted. Derm: No deficits noted. Musculoskeletal: No deficits noted. 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 N/A - Depo-provera vc1 Trauma Activation: Not Applicable Physician: ED Physician; Name: ; Notified At: ; Arrived At: Physician: General Surgeon; Name: ; Notified At: ; Arrived At: Physician: Radiology; Name: ; Notified At: ; Arrived At: Physician: Respiratory; Name: ; Notified At: ; Arrived At: Physician: Lab; Name: ; Notified At: ; Arrived At: Historical: - Allergies: 03/26 23:59 Ibuprofen; vc1 23:59 Naproxen; vc1 - PMHx: 23:59 Arthritis; GERD; Gout; Hypertension; vc1 - PSHx: 23:59 hernia repair; Neck sx; Right arm injury; vc1 - Immunization history:: Adult Immunizations up to date, Client reports receiving the 2nd dose of the Covid vaccine, Moderna. - Social history:: Smoking status: Patient denies any tobacco usage or history of. - Immunization history: Last tetanus immunization: unknown. Screenin/25 01:15 Abuse screen: Denies threats or abuse. Denies injuries from another. Nutritional lg3 screening: No deficits noted. Tuberculosis screening: No symptoms or risk factors identified. Fall Risk None identified. Primary Survey: 01:22 NO uncontrolled hemorrhage observed. Breathing/Chest: Spontaneous respiratory effort, lg3 equal unlabored respirations, breath sounds clear bilaterally, regular pattern, symmetrical chest rise and fall. Circulation: No external hemorrhage present. Regular and strong central pulse, skin warm/dry/normal color. Disability Pupils are equal, round, reactive to light and accommodation. Client is alert. Exposure/Environment: All clothing and personal items were removed. Forensic evidence collection is not deemed to be indicated at this time. Items placed in patient belonging bag. A warming method has been applied: A warm blanket has been provided to the patient. Reassessment Breathing: Spontaneous respiratory effort, equal unlabored respirations, breath sounds clear bilaterally, regular pattern with symmetrical chest rise and fall. Circulation: No external hemorrhage noted. Regular and strong central pulse, skin warm/dry/normal color. Disability: Pupils Pupils are equal, round, reactive to light and accomodation. Alert Verbal stimuli. Assessment: 01:15 General: Appears in no apparent distress. comfortable, Behavior is calm, cooperative, lg3 flat. Pain: Complains of pain in all over. Neuro: No deficits noted. Level of Consciousness is awake, alert, obeys commands, Oriented to person, place, time, situation. Cardiovascular: No deficits noted. Denies chest pain, shortness of breath, Capillary refill < 3 seconds Clubbing of nail beds is absent JVD is absent Patient's skin is warm and dry. Respiratory: No deficits noted. Airway is patent Trachea midline Respiratory effort is even, unlabored, Respiratory pattern is regular, symmetrical, Breath sounds are clear bilaterally. GI: No deficits noted. No signs and/or symptoms were reported involving the gastrointestinal system. Abdomen is round non-distended. : No deficits noted. No signs and/or symptoms were reported regarding the genitourinary system. EENT: No deficits noted. No signs and/or symptoms were reported regarding the EENT system. Derm: No deficits noted. No signs and/or symptoms reported regarding the dermatologic system. Skin is intact, is healthy with good turgor, Skin is dry, Skin temperature is warm. Musculoskeletal: No deficits noted. Reports pain all over. 02:33 Reassessment: Patient appears in no apparent distress at this time. No changes from lg3 previously documented assessment. Patient and/or family updated on plan of care and expected duration. Pain level reassessed. Patient is alert, oriented x 3, equal unlabored respirations, skin warm/dry/pink. 04:14 Reassessment: Patient appears in no apparent distress at this time. No changes from lg3 previously documented assessment. Patient and/or family updated on plan of care and expected duration. Pain level reassessed. Patient is alert, oriented x 3, equal unlabored respirations, skin warm/dry/pink. Patient states feeling better. Vital Signs: 03/26 23:57 Pain 10/10; vc1 03/27 00:04 BP 140 / 91; Pulse 89; Resp 20; Temp 97.8; Pulse Ox 100% ; Weight 88.45 kg; Height 5 vc1 ft. 3 in. (160.02 cm); Pain 10/10; 04:14 BP 134 / 78; Pulse 79; Resp 18 S; Pulse Ox 100% on R/A; lg3 00:04 Body Mass Index 34.54 (88.45 kg, 160.02 cm) vc1 Tripp Coma Score: 01:22 Eye Response: spontaneous(4). Verbal Response: oriented(5). Motor Response: obeys lg3 commands(6). Total: 15. Trauma Score (Adult): :22 Eye Response: spontaneous(1); Verbal Response: oriented(1); Motor Response: obeys lg3 commands(2); Systolic BP: > 89 mm Hg(4); Respiratory Rate: 10 to 29 per min(4); Roxanne Score: 15; Trauma Score: 12 ED Course: 03/26 23:47 Patient arrived in ED. bp1 23:50 Rajesh Hughes DO is Attending Physician. ms3 23:59 Triage completed. vc1 03/27 00:03 Arm band placed on right wrist. vc1 00:28 CT Head C Spine In Process Unspecified. EDMS 00:35 Ladonna Melo, NICCI is Primary Nurse. lg3 01:12 Shoulder Right (2 View) XRAY In Process Unspecified. EDMS 01:15 Patient has correct armband on for positive identification. Bed in low position. Call lg3 light in reach. Side rails up X2. Client placed on continuous cardiac and pulse oximetry monitoring. NIBP monitoring applied. Door closed. Noise minimized. Warm blanket given. Family accompanied patient. 01:22 Patient maintains SpO2 saturation greater than 95% on room air. lg3 02:33 Thermoregulation: warm blanket given to patient. lg3 03:56 Lane Mcdowell MD is Referral Physician. ms3 04:15 No provider procedures requiring assistance completed. Patient did not have IV access lg3 during this emergency room visit. Administered Medications: 00:57 Drug: HYDROcodone-acetaminophen 5 mg-325 mg 1 tabs Route: PO; lg3 01:01 Follow up: Response: No adverse reaction lg3 00:57 Drug: Flexeril (cyclobenzaprine) 10 mg Route: PO; lg3 01:01 Follow up: Response: No adverse reaction lg3 04:14 Not Given (Patient Refused): Zofran (Ondansetron) 4 mg PO once lg3 Medication: 04:16 VIS not applicable for this client. lg3 Intake: 04:15 PO: 50ml (Water); Total: 50ml. lg3 Output: 04:15 Urine: 120ml (Voided); Total: 120ml. lg3 Outcome: 03:56 Discharge ordered by . ms3 04:15 Discharged to home via wheelchair, with family. lg3 04:15 Condition: stable 04:15 Discharge instructions given to patient, family, Instructed on discharge instructions, Demonstrated understanding of instructions. 04:16 Patient's length of stay in the Emergency Department was greater than 2 hours. lg3 04:16 Patient left the ED. lg3 Signatures: Dispatcher [employer] Ladonna Weinberg, RN RN lg3 Rajesh Hughes DO DO ms3 Chica Reyes Vanessa, RN RN vc1
--- NOTE | 2022-03-27 03:57 | EDPHYS ---
Physician Documentation [facility] Name: Nancie Ordonez Age: 51 yrs Sex: Female : 1970 Arrival Date: 03/26/2022 Time: 23:47 Bed 16 Private MD: ED Physician Rajesh Hughes HPI: 03/27 00:14 This 51 yrs old Black Female presents to ER via Wheelchair with complaints of Fall ms3 Injury, Pain All Over. 00:14 51-year-old female with past medical history of arthritis, GERD, gout, hypertension ms3 presents with whole body pain after falling earlier today. Patient states that she was caught up in a cord for her breathing machine and fell onto her right shoulder. Patient states she was in a daze after the fall. Patient states her pain is 10/10 described as aching. Patient denies alleviating or inciting factors. Patient denies nausea, vomiting, chest pain, shortness of breath.. 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 - Social history:: Smoking status: Patient denies any tobacco usage or history of. - Immunization history: Last tetanus immunization: unknown. ROS: 03/27 00:14 ENT: Negative for injury, pain, and discharge, Cardiovascular: Negative for chest pain, ms3 and palpitations. Respiratory: Negative for shortness of breath, cough, wheezing, and pleuritic chest pain, Abdomen/GI: Negative for abdominal pain, nausea, vomiting, diarrhea, and constipation. Constitutional: Positive for Body pain all over. MS/extremity: Positive for Right shoulder pain. All other systems are negative. Exam: 00:14 Constitutional: This is a well developed, well nourished patient who is awake, alert, ms3 and in no acute distress. Head/Face: Normocephalic, atraumatic. ENT: Nares patent. No nasal discharge, no septal abnormalities noted. Tympanic membranes are normal and external auditory canals are clear. Oropharynx with no redness, swelling, or masses, exudates, or evidence of obstruction, uvula midline. Mucous membranes moist. Chest/axilla: Normal chest wall appearance and motion. Nontender with no deformity. Cardiovascular: Regular rate and rhythm with a normal S1 and S2. No gallops, murmurs, or rubs. Normal PMI, no JVD. No pulse deficits. Respiratory: Lungs have equal breath sounds bilaterally, clear to auscultation and percussion. No rales, rhonchi or wheezes noted. No increased work of breathing, no retractions or nasal flaring. Abdomen/GI: Soft, non-tender, with normal bowel sounds. No distension or tympany. No guarding or rebound. No evidence of tenderness throughout. 00:14 Musculoskeletal/extremity: Extremities: noted in the right shoulder: pain, tenderness. Vital Signs: 03/26 23:57 Pain 10/10; vc1 03/27 00:04 BP 140 / 91; Pulse 89; Resp 20; Temp 97.8; Pulse Ox 100% ; Weight 88.45 kg; Height 5 vc1 ft. 3 in. (160.02 cm); Pain 10/10; 04:14 BP 134 / 78; Pulse 79; Resp 18 S; Pulse Ox 100% on R/A; lg3 00:04 Body Mass Index 34.54 (88.45 kg, 160.02 cm) vc1 Tilghman Coma Score: 01:22 Eye Response: spontaneous(4). Verbal Response: oriented(5). Motor Response: obeys lg3 commands(6). Total: 15. Trauma Score (Adult): 01:22 Eye Response: spontaneous(1); Verbal Response: oriented(1); Motor Response: obeys lg3 commands(2); Systolic BP: > 89 mm Hg(4); Respiratory Rate: 10 to 29 per min(4); Roxanne Score: 15; Trauma Score: 12 MDM: 00:03 Patient medically screened. ms3 00:17 Differential diagnosis: abrasion, closed head injury, contusion. ms3 03:56 Data reviewed: vital signs, nurses notes, radiologic studies, CT scan, plain films, and ms3 as a result, I will discharge patient. Counseling: I had a detailed discussion with the patient and/or guardian regarding: the historical points, exam findings, and any diagnostic results supporting the discharge/admit diagnosis, radiology results, the need for outpatient follow up, to return to the emergency department if symptoms worsen or persist or if there are any questions or concerns that arise at home. ED course: On reevaluation patient is alert and oriented x4, in no apparent distress, nontoxic-appearing, speaking full sentences, ambulatory in emergency department. . 03/27 00:05 Order name: CT Head C Spine ms3 03/27 00:05 Order name: Shoulder Right (2 View) XRAY ms3 Administered Medications: 00:57 Drug: HYDROcodone-acetaminophen 5 mg-325 mg 1 tabs Route: PO; lg3 01:01 Follow up: Response: No adverse reaction lg3 00:57 Drug: Flexeril (cyclobenzaprine) 10 mg Route: PO; lg3 01:01 Follow up: Response: No adverse reaction lg3 04:14 Not Given (Patient Refused): Zofran (Ondansetron) 4 mg PO once lg3 Disposition Summary: 03/27/22 03:56 Discharge Ordered Location: Home ms3 Condition: Stable ms3 Diagnosis - Pain in right shoulder ms3 Followup: ms3 - With: Lane Mcdowell MD - When: 2 - 3 days - Reason: Recheck today's complaints Discharge Instructions: - Discharge Summary Sheet ms3 - Shoulder Pain ms3 Forms: - Medication Reconciliation Form ms3 - Thank You Letter ms3 - Antibiotic Education ms3 - Prescription Opioid Use ms3 Signatures: Dispatcher [employer] Ladonna Weinberg, RN RN lg3 Rajesh Hughes DO DO ms3 Julia Dale RN RN vc1
[2022-03-27 04:36] VITALS: TEMP 97.8; O2SAT 100
[2022-03-27 04:37] VITALS: BP 134/78
--- NOTE | 2022-03-27 14:57 | RAD REPORT ---
EXAM DESCRIPTION: CT - [id number] - 03/27/2022 6:39 am CLINICAL HISTORY: 51 years Female fall TECHNIQUE: Noncontrast CT head and cervical spine with coronal and sagittal reformats. All CT scans at this facility use dose modulation, iterative reconstruction, and/or weight based dosing when appro priate to reduce radiation dose to as low as reasonably achievable. COMPARISON: CT head 05/18/2021 and cervical spine 09/09/2021.. FINDINGS: HEAD: Brain: No intracranial hemorrhage, midline shift, mass or mass effect. No obvious large acute territo rial infarction. Ventricles: No hydrocephalus. Orbits: Unremarkable. Sinus: Visualized portions are clear. Mastoid: clear Osseous: Unremarkable. Soft tissues: Unremarkable. CERVICAL SPINE: Vertebra: No acute fracture. Degenerative change: Disc spacer at C5-C6 again noted. Multilevel degenerative changes. No high grade spinal canal stenosis. Alignment: Straightening of the normal cervical lordosis without spondylolisthesis. Soft tissues: Unremarkable. Lungs: Visualized lung apices are clear. IMPRESSION: Head: 1. No acute intracranial findings. Cervical spine: 1. No acute cervical spine pathology. Electronically signed by: Xander Todd MD 03/27/2022 1:34 AM CDT Due to temporary technical issues with the PACS/Fluency reporting system, reports are being signed by the in house radiologists without review as a courtesy to insure prompt reporting. The interpreting radiologist is fully responsible for the content of the report.
--- NOTE | 2022-03-27 15:01 | RAD REPORT ---
EXAM DESCRIPTION: Shoulder Right 2 View - 03/27/2022 1:10 am CLINICAL HISTORY: 51 years Female PAIN in shoulder TECHNIQUE: 2 x-ray views of the right shoulder were performed on 03/27/2022 at 12:40 AM. COMPARISON: Chest x-ray performed on 11/15/2021 FINDINGS: There is no evidence of fracture or dislocation. There are mild degenerative changes of th e acromioclavicular joint and glenohumeral joint. No focal lytic or sclerotic bone lesions are seen. Bone mineralization is normal. No acute soft tissue abnormalities are identified. The visualized portions of the right hemithorax ar e grossly unremarkable. There may be mild atelectasis or fibrosis in the right lung base. There are r emote postsurgical changes of the lower cervical spine. IMPRESSION: No evidence of acute osseous injury involving the right shoulder. There are mild degener ative changes of the acromioclavicular joint and glenohumeral joint. Electronically signed by: Ivory Hernandez DO 03/27/2022 1:56 AM CDT Due to temporary technical issues with the PACS/Fluency reporting system, reports are being signed by the in house radiologists without review as a courtesy to insure prompt reporting. The interpreting radiologist is fully responsible for the content of the report.
== END 2022-03-27 04:16 | disposition home or self-care (01) ==
LOC: ER 23:43
DX: M25.511 Pain in right shoulder (principal)
CPT/HCPCS: 70450; 72125; 99284

== ENCOUNTER 2022-04-02 11:06 | Emergency (ER) | payer OTHER ==
[2022-04-02] MEDS ORDERED: METOCLOPRAMIDE 10 MG/2mL INJ ONE (11:47)
[2022-04-02] MEDS ORDERED: DIPHENHYDRAMINE 50 MG/ML VIAL ONE (11:47)
--- NOTE | 2022-04-02 11:48 | RAD REPORT ---
EXAM DESCRIPTION: RAD - Chest Single View - 04/02/2022 11:37 am CLINICAL HISTORY: SOB COMPARISON: Ct Stroke Brain Wo Cont dated 07/06/2020; Head Brain Wo Cont dated 06/09/2020Chest Single View dated 12/30/2021; Chest Pa And Lat (2 Views) dated 12/20/2021; Chest Single View dated 11/20/2021; Chest Single View dated 11/15/2021 FINDINGS: Lines: None. Lungs: No evidence of edema or pneumonia. Pleural: No significant pleural effusions or pneumothorax. Cardiac: The heart size is within normal limits. Bones: No acute fractures. Other: IMPRESSION: No acute cardiopulmonary disease.
[2022-04-02 11:50] LABS: Absolute Lymphocytes (CBC) 2.2 K/uL (0.7-4.9); Hematocrit 36.1 % (36.0-45.0); Lymphocytes % 33.8 % (15.3-44.8); MCV 74.5 fL (80-100); MPV 8.8 fL (7.6-11.3); RBC Red Blood Cell Count 4.85 M/uL (3.86-4.86)
--- NOTE | 2022-04-02 11:57 | RAD REPORT ---
EXAM DESCRIPTION: CT - Head Brain Wo Cont - 04/02/2022 11:46 am CLINICAL HISTORY: DURON, dizziness, HTN COMPARISON: Head Brain Wo Cont dated 03/08/2021; Head Brain Wo Cont dated 10/12/2020 TECHNIQUE: All CT scans are performed using dose optimization technique as appropriate and may inclu de automated exposure control or mA/KV adjustment according to patient size. FINDINGS: No intracranial hemorrhage, hydrocephalus or extra-axial fluid collection.No areas of brai n edema or evidence of midline shift. The paranasal sinuses and mastoids are clear. The calvarium is intact. IMPRESSION: No acute intracranial abnormality.
[2022-04-02 12:07] LABS: Albumin 3.6 g/dL (3.4-5.0); Bilirubin Total 0.2 mg/dL (0.2-1.0); Magnesium 2.2 mg/dL (1.8-2.4); Potassium 3.2 mmol/L (3.5-5.1); Protein, Total 6.6 g/dL (6.4-8.2); Troponin High Sensitivity 6.2 pg/mL (<58.9)
[2022-04-02] MEDS ORDERED: dexAMETHasone 4 MG/ML VIAL ONE (12:47)
[2022-04-02] MEDS ORDERED: KETOROLAC 30 MG/ML INJ ONE (12:49)
[2022-04-02] MEDS ORDERED: NA CHLORIDE 0.9% 1,000 ML ONE (12:49)
--- NOTE | 2022-04-02 13:43 | ER ---
Nurse's Notes [facility] Name: Nancie Ordonez Age: 51 yrs Sex: Female : 1970 Arrival Date: 04/02/2022 Time: 11:08 Bed 5 Private MD: Parish Cyr Diagnosis: Cephalgia;Hypertension;Right Trapezius Strain Presentation: 04/02 11:17 Chief complaint: Patient states: DURON, dizzy, high BP, spots in vision off/on since last ll1 night. Coronavirus screen: Vaccine status: Patient reports receiving the 2nd dose of the covid vaccine. Client denies travel out of the [place] in the last 14 days. At this time, the client does not indicate any symptoms associated with coronavirus-19. Ebola Screen: Patient denies travel to an Ebola-affected area in the 21 days before illness onset. 11:17 Method Of Arrival: Ambulatory ll1 11:19 Initial Sepsis Screen: Does the patient meet any 2 criteria? No. Patient's initial 1 sepsis screen is negative. Does the patient have a suspected source of infection? No. Patient's initial sepsis screen is negative. Risk Assessment: Do you want to hurt yourself or someone else? Patient reports no desire to harm self or others. Onset of symptoms was April 01, 2022. 11:19 Acuity: DEEPALI 3 ll1 Triage Assessment: 11:19 Headache History: The patient has had previous headaches and this one is similar to 1 previous episodes. General: Appears uncomfortable, Behavior is calm, cooperative, appropriate for age. Pain: Complains of pain in head Pain currently is 9 out of 10 on a pain scale. Pain began 1 day ago. Also complains of no other associated symptoms. Neuro: Reports dizziness, headache high BP. Cardiovascular: Reports lightheadedness, high BP. Musculoskeletal: Circulation, motion, and sensation intact. Capillary refill < 3 seconds, Reports pain in R shoulder. Historical: - Allergies: 11:17 Ibuprofen; ll1 11:17 Naproxen; ll1 - PMHx: 11:17 Arthritis; GERD; Gout; Hypertension; ll1 - PSHx: 11:17 hernia repair; Neck sx; Right arm injury; ll1 - Immunization history:: Client reports receiving the 2nd dose of the Covid vaccine. - Social history:: Smoking status: Patient denies any tobacco usage or history of. Screenin:57 Abuse screen: Denies threats or abuse. Denies injuries from another. Nutritional duron screening: No deficits noted. Tuberculosis screening: No symptoms or risk factors identified. Fall Risk IV access (20 points). Assessment: 13:58 Pain: Complains of pain in HEADACHES. Neuro: Level of Consciousness is awake, alert, duron obeys commands, Oriented to person, place, time, situation, Reports dizziness, headache. Vital Signs: 11:17 BP 139 / 106; Pulse 73; Resp 17; Temp 97.4; Pulse Ox 100% ; Weight 90.26 kg; Height 5 ll1 ft. 3 in. (160.02 cm); Pain 9/10; 13:12 BP 131 / 86; Pulse 78; Resp 17; Pulse Ox 100% on R/A; duron 11:17 Body Mass Index 35.25 (90.26 kg, 160.02 cm) ll1 ED Course: 11:08 Patient arrived in ED. mr 11:08 Parish Cyr MD is Private Physician. mr 11:10 Doris Eduardo MD is Attending Physician. sd2 11:17 Arm band placed on Patient placed in an exam room, on a stretcher. ll1 11:19 Triage completed. ll1 11:23 Serene Mitchell, RN is Primary Nurse. duron 11:39 XRAY Chest (1 view) In Process Unspecified. EDMS 11:48 CT Head Brain wo Cont In Process Unspecified. EDMS 12:41 Door closed. Noise minimized. Warm blanket given. mb7 12:58 Assisted to bathroom. mb7 13:42 Parish Cyr MD is Referral Physician. sd2 13:57 Patient has correct armband on for positive identification. Bed in low position. duron 13:57 No provider procedures requiring assistance completed. Inserted saline lock: 22 gauge duron in left forearm, using aseptic technique. IV discontinued, intact, Pressure dressing applied. Administered Medications: 11:46 Drug: Reglan (metoCLOPramide) 10 mg Route: IVP; Site: left forearm; duron 11:47 Follow up: Response: No adverse reaction duron 11:47 Drug: Benadryl (diphenhydrAMINE) 25 mg Route: IVP; Site: left forearm; duron 11:47 Follow up: Response: No adverse reaction duron 12:40 CANCELLED (Physician Discretion): Ketorolac 15 mg IVP once sd2 12:59 Drug: Decadron - Dexamethasone 10 mg Route: IVP; Site: left forearm; duron 13:00 Drug: NS 0.9% 1000 ml Route: IV; Rate: 1000 ml; Site: left forearm; duron 13:12 Not Given (Physician Discretion): Fioricet - Esgic 325 mg-40 mg-50 mg 1 tab-caps PO oncesd2 Medication: 13:58 VIS not applicable for this client. duron Outcome: 13:43 Discharge ordered by . sd2 13:57 Discharged to home ambulatory. duron 13:57 Condition: good 13:57 Discharge instructions given to patient. 13:58 Patient left the ED. duron Signatures: Dispatcher [employer] Haylie Brown Lynsay, RN RN ll1 Haylie Broderick mb7 Serene Mitchell RN RN ha Dunlop, Stephanie, MD MD sd2
--- NOTE | 2022-04-02 13:43 | EDPHYS ---
Physician Documentation [facility] Name: Nancie Ordonez Age: 51 yrs Sex: Female : 1970 Arrival Date: 04/02/2022 Time: 11:08 Bed 5 Private MD: Parish Cyr ED Physician Doris Eduardo HPI: 04/02 11:24 This 51 yrs old Black Female presents to ER via Ambulatory with complaints of Shoulder sd2 Pain, Headache, Dizziness. 11:24 51-year-old female with a history of hypertension, arthritis, gout and GERD presents sd2 with chief complaint of headache. She reports that her headache is located in the back of her head and radiates into her right shoulder which she has had problems with previously due to to requiring a prior surgery after a traumatic mechanism. She also reports that her blood pressure was elevated yesterday to 199/118 at home and she took an extra blood pressure pill last night. She denies any chest pain but does endorse some shortness of breath but states that this has been ongoing for quite some time. She is currently on prednisone daily regarding her lung issues. She also reports seeing floaters in her vision and feeling dizzy last night with the associated elevated blood pressure reading. She describes the dizziness as a lightheaded sensation and feeling as if she was going to pass out. She denies any room spinning sensation.. Historical: - Allergies: 11:17 Ibuprofen; ll1 11:17 Naproxen; ll1 - PMHx: 11:17 Arthritis; GERD; Gout; Hypertension; ll1 - PSHx: 11:17 hernia repair; Neck sx; Right arm injury; ll1 - Immunization history:: Client reports receiving the 2nd dose of the Covid vaccine. - Social history:: Smoking status: Patient denies any tobacco usage or history of. ROS: 11:24 Constitutional: Negative for fever, chills, and weight loss, Eyes: Negative for injury, sd2 pain, redness, and discharge, Cardiovascular: Negative for chest pain, palpitations, and edema, Respiratory: Positive for shortness of breath. Negative for cough and wheezing. Abdomen/GI: Negative for abdominal pain, nausea, vomiting, diarrhea. MS/Extremity: Negative for injury and deformity, Skin: Negative for injury, rash, and discoloration, Neuro: Positive for headache. Negative for numbness and tingling. Exam: 11:24 Constitutional: This is a well developed, well nourished patient who is awake, alert, sd2 and in no acute distress. Head/Face: Normocephalic, atraumatic. Eyes: EOMI, normal conjunctiva bilaterally Chest/axilla: Normal chest wall appearance and motion. Nontender with no deformity. Cardiovascular: Regular rate and rhythm with a normal S1 and S2. No gallops, murmurs, or rubs. 2+ distal pulses. Respiratory: Lungs have equal breath sounds bilaterally, clear to auscultation and percussion. No rales, rhonchi or wheezes noted. No increased work of breathing, no retractions or nasal flaring. Abdomen/GI: Soft, non-tender, with normal bowel sounds. No guarding or rebound. No evidence of tenderness throughout. Skin: Warm, dry with normal turgor. Normal color with no rashes, no lesions, and no evidence of cellulitis. MS/ Extremity: Pulses equal, no cyanosis. Neurovascular intact. Full, normal range of motion. Ambulatory without difficulty. TTP noted of the R trapezius muscle. Psych: Awake, alert, with orientation to person, place and time. Behavior, mood, and affect are within normal limits. 13:10 ECG was reviewed by the Attending Physician. NSR, rate 79, no STEMI criteria, TWI noted sd2 in inferior and lateral leads Vital Signs: 11:17 BP 139 / 106; Pulse 73; Resp 17; Temp 97.4; Pulse Ox 100% ; Weight 90.26 kg; Height 5 ll1 ft. 3 in. (160.02 cm); Pain 9/10; 13:12 BP 131 / 86; Pulse 78; Resp 17; Pulse Ox 100% on R/A; torres 11:17 Body Mass Index 35.25 (90.26 kg, 160.02 cm) ll1 MDM: 11:15 Patient medically screened. sd2 11:24 Differential diagnosis: HTN, ICH, migraine, dehydration, electrolyte abnormality, ACS sd2 among others. Data reviewed: vital signs, nurses notes. 13:40 Data reviewed: lab test result(s), radiologic studies. Counseling: I had a detailed sd2 discussion with the patient and/or guardian regarding: the historical points, exam findings, and any diagnostic results supporting the discharge/admit diagnosis, lab results, radiology results, the need for outpatient follow up, to return to the emergency department if symptoms worsen or persist or if there are any questions or concerns that arise at home. Medical screen evaluation completed. EMTALA emergency medical condition absent. ED course: Pt feeling improved. BP 131/86. Pt sitting up in bed eating pizza in room, smiling and appears well. Labs and imaging reviewed with no significant acute abnormalities. Trop neg and EKG with no ischemic changes. Pt advised of need to keep BP log at home daily and to follow up with PCP regarding further adjustments of her BP medications if indicated. Pt and at verbalize understanding of discharge plan and strict return precautions.. 04/02 11:24 Order name: CBC with Diff; Complete Time: 11:58 sd04/02 11:24 Order name: CMP; Complete Time: 12:13 04/02 11:24 Order name: Magnesium; Complete Time: 12:13 04/02 11:24 Order name: Troponin High Sensitivity; Complete Time: 12:13 04/02 11:24 Order name: BNP; Complete Time: 12:13 04/02 11:24 Order name: XRAY Chest (1 view); Complete Time: 11:58 04/02 11:24 Order name: CT Head Brain wo Cont; Complete Time: 11:58 04/02 11:24 Order name: EKG - Nurse/Tech; Complete Time: 12:15 sd2 Administered Medications: 11:46 Drug: Reglan (metoCLOPramide) 10 mg Route: IVP; Site: left forearm; torres 11:47 Follow up: Response: No adverse reaction torres 11:47 Drug: Benadryl (diphenhydrAMINE) 25 mg Route: IVP; Site: left forearm; torres 11:47 Follow up: Response: No adverse reaction torres 12:40 CANCELLED (Physician Discretion): Ketorolac 15 mg IVP once sd2 12:59 Drug: Decadron - Dexamethasone 10 mg Route: IVP; Site: left forearm; torres 13:00 Drug: NS 0.9% 1000 ml Route: IV; Rate: 1000 ml; Site: left forearm; torres 13:12 Not Given (Physician Discretion): Fioricet - Esgic 325 mg-40 mg-50 mg 1 tab-caps PO oncesd2 Disposition Summary: 04/02/22 13:43 Discharge Ordered Location: Home sd2 Problem: new sd2 Symptoms: have improved sd2 Condition: Stable sd2 Diagnosis - Cephalgia sd2 - Hypertension sd2 - Right Trapezius Strain sd2 Followup: sd2 - With: Parish Cyr MD - When: 2 - 3 days - Reason: Recheck today's complaints, Continuance of care, Re-evaluation by your physician Followup: sd2 - With: Emergency Department - When: As needed - Reason: Discharge Instructions: - Discharge Summary Sheet sd2 - General Headache Without Cause sd2 - Hypertension, Adult sd2 - Musculoskeletal Pain sd2 Forms: - Medication Reconciliation Form sd2 - Thank You Letter sd2 - Antibiotic Education sd2 - Prescription Opioid Use sd2 Signatures: Dispatcher [employer] EDVik Montaño RN RN ll1 Fatoumata-Serene Cota RN RN ha Dunlop, Stephanie, MD MD sd2 Corrections: (The following items were deleted from the chart) 12:40 12:38 Ketorolac 15 mg IVP once ordered. sd2 sd2
[2022-04-02 14:23] LABS: Anisocytosis 1+; Blood Morphology Comment NOTED (NOT SEEN); Platelet Estimate ADEQ; White Blood Cell Scan OK (OK)
[2022-04-02 14:48] VITALS: TEMP 97.4; O2SAT 100
[2022-04-02 14:59] VITALS: BP 131/86
--- NOTE | 2022-04-03 12:22 | EKG ---
Test Date: 2022-04-02 Test Time: 12:13:31 Driver Helper: MARY MEASUREMENT RESULTS: Intervals: Rate: 79 VA: 116 QRSD: 76 QT: 366 QTc: 419 [place]: P: 53 VA: 116 QRS: 54 T: 268 INTERPRETIVE STATEMENTS: Normal sinus rhythm Possible Left atrial enlargement T wave abnormality, consider inferolateral ischemia Abnormal ECG Compared to ECG 12/30/2021 21:26:03 T-wave abnormality now present ST (T wave) deviation no longer present Possible ischemia still present Electronically Signed On 04-03-22 12:20:32 CDT by Alireza Nielsen
== END 2022-04-02 13:58 | disposition home or self-care (01) ==
LOC: ER 11:06
DX: R51.9 Headache, unspecified (principal); S46.811A Strain of other muscles, fascia and tendons at shoulder and upper arm level, right arm, initial encounter; I10 Essential (primary) hypertension; Z88.6 Allergy status to analgesic agent
CPT/HCPCS: 93005; 85025; 36415; 83735; 84484; 80053; 83880; 70450; 71045; 96375; 96374; 99284; J1100; J2765; J1200; J7030

== ENCOUNTER 2022-05-29 12:03 | Emergency (ER) | payer OTHER ==
--- OUTSIDE RECORDS SUMMARY | 2022-05-29 12:26 | XMS REPORT | Continuity of Care Document ---
:1970 Author Organization [facility] t Address [address] [place] [address] Dr. Crawford [address] [place] [id number] Care Team Providers Name Role Phone YORDAN OLMEDO JR Primary Care Physician Unavailable DR LINDSEY CAMERON Attending Clinician Unavailable WILMAR MADISON Attending Clinician Unavailable WILMAR MADISON Attending Clinician Unavailable , [facility] Attending Clinician Unavailable Wilmar [place] MD Attending Clinician Only, [facility] Test Attending Clinician Unavailable Doctor Unassigned, [place] Attending Clinician Unavailable ANAYA GUALLPA Attending Clinician Unavailable Sobeida Bagley Attending Clinician BRO PANDYA Attending Clinician Unavailable Bro Mejia Attending Clinician JADEN RENE Attending Clinician Unavailable JADEN RENE Attending Clinician Unavailable MAI DEL ROSARIO Attending Clinician Unavailable Mai Del Rosario DO Attending Clinician JACKLYN GUILLEN Attending Clinician Unavailable Jacklyn Guillen MD Attending Clinician Una GRAJEDA, Marjan Holt Attending Clinician GELY CORDOVA Attending Clinician Unavailable Christos Tovar MD Attending Clinician Gely Cordova MD Attending Clinician TEWILFRID TEMPLETON Attending Clinician Unavailable Gonsalo YI, Maury Borja Attending Clinician TeWilfrid [place] DO Attending Clinician Evelin GRAJEDA, Any Fong Attending Clinician Unavailable FLASH KIMBALL Attending Clinician Unavailable Ilan YI, Blanca Attending Clinician Josie YI, Samir Attending Clinician Faraz Rodriguez MD Attending Clinician Flash Kimball MD Attending Clinician AMOR SHAIKH Attending Clinician Unavailable AMOR SHAIKH Attending Clinician Unavailable DR LINDSEY CAMERON Admitting Clinician Unavailable ANAYA GUALLPA Admitting Clinician Unavailable BRO PANDYA Admitting Clinician Unavailable JADEN RENE Admitting Clinician Unavailable MAI DEL ROSARIO Admitting Clinician Unavailable JACKLYN GUILLEN Admitting Clinician Unavailable GELY CORDOVA Admitting Clinician Unavailable Gely Cordova MD Admitting Clinician WILFRID HATHAWAY Admitting Clinician Unavailable Wilfrid Hathaway DO Admitting Clinician FARAZ RODRIGUEZ Admitting Clinician Unavailable Faraz Rodriguez MD Admitting Clinician Payers Payer Name Policy Type Policy Number Effective Date Expiration Date Anjum veras 0111 [id number] 2022 00:00:00 ISABEL SILVESTRE FROM [id number] 2021 [facility] 00:00:00 Problems Condition Condition Condition Status Onset Resolution Last Treating Co mments Source Name Details Category Date Date Treatment Clinician Date Transient Transient Disease Active Uni vers alteration alteration 6-25 it y of of of 00:00: [place] awareness awareness 00 [facility] Gastric Gastric Disease Active Univers ulcer ulcer 6-22 ity of 00:00: [place] [facility] Pneumonia Pneumonia Disease Active Uni vers 4-04 ity of 00:00: [place] [facility] Acute Acute Disease Active Univers asthma asthma 4-02 ity of exacerbati exacerb[place] Sepsis Sepsis Disease Active Univers 3-09 ity of 00:00: [place] [facility] Morbid Morbid Disease Active Univers obesity obesity 2-14 ity of with body with body 00:[place] mass index mass index 00 Me dical of of Branch 40.0-49.9 40.0-49.9 Obesity Obesity Disease Active Univers (BMI (BMI 2-12 ity of 30-39.9) 30-39.9) 00:00: [place] [facility] Acute Acute Disease Active Univers hypoxemic hypoxemic 2-12 ity of respirator resp[place]ator [place] failure y failure 00 [facility] Chronic Chronic Disease Active Univers pain due pain due 2-04 ity of to injury to injury 00:[place] Dyslipidem Dyslipidem Disease Active U barbyers ia ia 2-04 ity of 00:00: [place] [facility] Gastro-eso Gastro-eso Disease Active U sofie phageal phageal 2-04 ity of reflux reflux 00:00: [place] disease disease 00 Medical with with Branch esophagiti esophagiti s, with s, with bleeding bleeding Generalize Generalize Disease Active U nivers d anxiety d anxiety 2-04 ity of disorder disorder 00:00: [place] [facility] Pain of Pain of Disease Active Univers cervical cervical 2-04 ity of spine spine 00:00: [place] 00 Medical [facility] Depo-Prove Depo-Prove Disease Active U barbyers ra ra 4-13 ity of contracept contracept 00:00[place] lloyd status lloyd status 00 Me dical Branch Eczema Eczema Disease Active Univers 8-13 ity of 00:00: [place] 00 Medical Branch Essential Essential Disease Active Uni vers hypertensi hypertensi 8-13 it y of on on 00:00: [place] 00 Medical Branch Back pain Back pain Disease Active Uni vers 2-06 ity of 00:00: [place] 00 Medical Branch Allergies, Adverse Reactions, Alerts Allergy Allergy Status Severity Reaction(s) Onset Inactive Treating Comm ents Source Name Type Date Date Clinician Naproxen Propensi Active - Oral ty to 01-28 adverse 00:00: reaction 00 to drug SEAFOOD/ Food Active High Anaphylaxis Uni vers FISH 4- ity of 00:00: [place] 00 Medical Branch [...] Medica l lammator s Branch y Drug) Naproxen Propensi Active ty to 2- adverse 00:00: reaction 00 to drug naproxen DA Active [facility] 2-27 [place] [...] INGREDI 03-11 ity of 00:00: [place] 00 [facility] Naproxen DA Active Unknown [facility] Ibuprofe DA Active Unknown [facility] Social History Social Habit Start Date Stop Date Quantity Comments Source History SDOH University o f Alcohol Std Drinks [place] [facility] History SDOH University o f Alcohol Binge [place] [facility] History SDOH University o f Alcohol Frequency [facility] Branch Exposure to 2022-02-15 2022-02-25 Not sure University of SARS-CoV-2 (event) 00:00:00 18:22:00 [facility] Alcohol intake 2022-02-22 2022-02-22 Current drinker Unive rsity of 00:00:00 00:00:00 of alcohol [facility] (finding) Branch Education 2021-10-15 2021-10-15 12 University of 00:00:00 00:00:00 [facility] Tobacco Comment 2021-10-15 2021-10-15 30 years ago Univers ity of 00:00:00 00:00:00 [facility] Cigarettes smoked 2021-10-15 2021-10-15 Univers ity of current (pack per 00:00:00 00:00:00 [facility] ) - Reported Branch Cigarette 2021-10-15 2021-10-15 University of pack-years 00:00:00 00:00:00 [facility] Tobacco use and 2021-10-15 2021-10-15 Smokeless tobacco Un iversity of exposure 00:00:00 00:00:00 non-user [facility] Alcohol Comment 2016-12-14 2016-12-14 infrequent - Univers ity of 00:00:00 00:00:00 family parties, [place] Med ical wine, 12 oz/time Branch History of tobacco 2001-12-14 Cigarette Smoker University of use 00:00:00 [facility] Sex Ass[birth year] At [birth year] Universit y of 00:00:00 00:00:00 [facility] Smoking Status Start Date Stop Date Source Ex-smoker 2021-10-15 00:00:00 2021-10-15 00:00:00 Universi ty of [facility] Medications Ordered Filled Start Stop Current Ordering Indication Dosage Frequency Signature Comments Components Source Medication Medication Date Date Medication? Clinician (SIG) Name Name &lt 2022-0 No 8-13 00:00: 00 TAKE 1 2021-0 No 500 TABLET BY 8-12 MOUTH EVERY 00:00: DAY FOR 7 00 DAYS &lt 2021-0 No 20 8-12 00:00: 00 TAKE 1 2021-0 No 75 TABLET BY 8-12 MOUTH TWICE 00:00: A DAY 00 &lt 2021-0 No 1 8- 00:00: 00 &lt 2-0 No 8-09 00:00: 00 Dose 2-0 No Unknown 8- 00:00: 00 &lt 2-0 No 100 7-15 00:00: 00 enoxaparin 2021-0 Yes 40mg 40 mg, Unive rs (LOVENOX) 6-26 Subcutaneo ity of injection 14:00: [place]ILY[place] 40 mg 00 First dose Medical on [facility] 02/26/22 at 0900, Until Discontinu ed, Routine amLODIPine Yes 10mg 10 mg, Unive rs (NORVASC) 6-26 Oral, ity of tablet 10 14:00: DAILY, [place] mg 00 First dose Medical on [facility] 02/26/22 at 0900, Until Discontinu ed, Routine celecoxib 2021-0 Yes 100mg Take 100 Uni vers (CELEBREX) 6-26 mg by ity of 100 mg 12:37: mouth 2 [place] capsule 35 (two) Medical times [place] daily with meals. amLODIPine 0 Yes 10mg Take 10 mg U nivers 10 mg 6-26 by mouth ity of tablet 12:37: daily. [address] FLUoxetine 2021-0 Yes 10mg Take 10 mg U nivers 10 mg 6-26 by mouth ity of capsule 12:37: daily. [address] traMADoL 2021-0 Yes 100mg Take 100 Univ ers 100 mg 6-26 mg by ity of capsule 12:37: mouth [place] 35 every 6 Medical (six) Branch hours as needed. celecoxib 2021-0 Yes 100mg Take 100 Uni vers (CELEBREX) 6-26 mg by ity of 100 mg 12:37: mouth 2 [place] capsule 35 (two) Medical times [place] daily with meals. amLODIPine 2021-0 Yes 10mg Take 10 mg U nivers 10 mg 6-26 by mouth ity of tablet 12:37: daily. [address] FLUoxetine 2021-0 Yes 10mg Take 10 mg U nivers 10 mg 6-26 by mouth ity of capsule 12:37: daily. [address] traMADoL 2-0 Yes 100mg Take 100 Univ ers 100 [...] by mouth ity of tablet 12:37: daily. [address] FLUoxetine 2021-0 Yes 10mg Take 10 mg U nivers 10 mg 6-26 by mouth ity of capsule 12:37: daily. [address] traMADoL 2021-0 Yes 100mg Take 100 Univ ers 100 mg 6-26 mg by ity of capsule 12:37: mouth [place] 35 every 6 Medical (six) Branch hours as needed. celecoxib 2021-0 Yes 100mg Take 100 Uni vers (CELEBREX) 6-26 mg by ity of 100 mg 12:37: mouth 2 [place] capsule 35 (two) Medical times [place] daily with meals. amLODIPine 2021-0 Yes 10mg Take 10 mg U nivers 10 mg 6-26 by mouth ity of tablet 12:37: daily. [address] FLUoxetine 2021-0 Yes 10mg Take 10 mg U nivers 10 mg 6-26 by mouth ity of capsule 12:37: daily. [address] traMADoL 2021-0 Yes 100mg Take 100 Univ ers 100 mg 6-26 mg by ity of capsule 12:37: mouth [place] 35 every 6 Medical (six) Branch hours as needed. ondansetron 2021-0 Yes 4mg 4 mg, Slow Univers (ZOFRAN 6-26 IV Push, ity of (PF)) 04:30: Q6HPRN, [place] injection 4 54 Starting Medi dayna mg on Sat Branch 02/25/22 at 2330, Until Discontinu ed, Routine, Nausea and Vomiting (N/V) acetaminoph 2022-0 Yes 650mg 650 mg, Un guillermina en 6-26 Oral, ity of (TYLENOL) 04:30: Q6HPRN, [place] tablet 650 45 Starting Medic al mg on Sat Branch 02/25/22 at 2330, Until Discontinu ed, Routine, Pain (scale 1-3) ondansetron 2021- No 4mg 4 mg, Slow Univers (ZOFRAN 02-23 IV Push, ity of (PF)) 05:45: 04:58 ONCE, 1 [place] injection 4 00 :00 dose, On Medi adyna mg [facility] Branch 02/23/22 at 0045, SE morpHINE (4 2021- No 4mg 4 mg, Slow Univers mg/mL) 02-23 IV Push, ity of injection 4 05:45: 04:58 ONCE, 1 [place] mg 00 :00 dose, On Medical [facility] Branch 02/23/22 at 0045, STAT acetaminoph 2021- No 1000mg 1,000 mg, Univers en 02-23 Oral, ity of (TYLENOL) 04:00: 03:13 ONCE, 1 [place] tablet 00 :00 dose, On Medical 1,000 mg [facility] Branch 02/22/22 at 2300, SE methocarbam 2021- No 1000mg 1,000 mg, Univers oL 02-23 Oral, ity of (ROBAXIN) 04:00: 03:14 ONCE, 1 [place] tablet 00 :00 dose, On Medical 1,000 mg [facility] Branch 02/22/22 at 2300, SE TAKE 1 2021-0 No CAPSULE BY 6-20 MOUTH EVERY 00:00: DAY 00 &lt 2021-0 No 6-16 00:00: 00 Dose 2021-0 No Unknown 6- 00:00: 00 &lt 2022-0 No - 00:00: 00 TAKE 1 2021-0 No TABLET BY 6-09 MOUTH TWICE 00:00: A DAY FOR 00 30 DAYS &lt 2021-0 No - 00:00: 00 TAKE 1 2021-0 No TABLET BY 6-09 MOUTH TWICE 00:00: A DAY FOR 00 30 DAYS TAKE 1 2021-0 No TABLET BY 6-09 MOUTH TWICE 00:00: A DAY FOR 00 30 DAYS &lt 2022-0 No - 00:00: 00 TAKE 1 2021-0 No TABLET BY 6- MOUTH EVERY 00:00: 12 HOURS 00 NEEDED Dose 2022-0 No Unknown 6- 00:00: 00 &lt 2022-0 No 6- 00:00: 00 Dose 2022-0 No Unknown 6 00:00: 00 &lt 2022-0 No 6- 00:00: 00 Dose 2022-0 No Unknown 6- 00:00: 00 TAKE 1 2021-0 No TABLET BY 6- MOUTH EVERY 00:00: 12 HOURS 00 NEEDED Dose 2022-0 No Unknown 02-01 00:00: 00 metformin 2-0 No 1mg 500 mg 5-31 tablet 00:00: 00 Dose 2021-0 No Unknown 01-31 00:00: 00 &lt 2022-0 No 5- 00:00: 00 TAKE 1 2021-0 No TABLET BY 5-31 MOUTH TWICE 00:00: A DAY 00 TAKE 2 2021-0 No PUFFS BY 5-31 MOUTH EVERY 00:00: 4 TO 6 00 HOURS &lt 2-0 No 5-31 00:00: 00 TAKE 1 2021-0 No CAPSULE BY 5-31 MOUTH EVERY 00:00: DAY 00 TAKE 6 2021-0 No TABLETS ON 1 00:00: DIRECTED ON 00 PACKAGE AND DECREASE BY 1 TAB EACH DAY FOR A TOTAL OF 6 DAYS TAKE 1 2021-0 No TABLET BY 5-31 MOUTH TWICE 00:00: A DAY 00 TAKE 2 2021-0 No PUFFS BY 5-31 MOUTH EVERY 00:00: 4 TO 6 00 HOURS TAKE 2 2021-0 No PUFFS BY 5-31 MOUTH EVERY 00:00: 4 TO 6 00 HOURS Dose 2-0 No Unknown 01-31 00:00: 00 &lt 2022-0 No 5-31 00:00: 00 TAKE 6 2021-0 No TABLETS ON 1 00:00: DIRECTED ON 00 PACKAGE AND DECREASE BY 1 TAB EACH DAY FOR A TOTAL OF 6 DAYS ipratropium 2021-0 2021- No 3mL 3 mL, Univ ers -albuteroL 01-29 Inhalation it y of (DUONEB) 14:15: 14:06 , ONCE [place] 0.5 mg-3 00 :00 NOW, 1 Medical mg(2.5 mg dose, On Branch base)/3 mL Sun nebulizer 01/29/22 at solution 3 0915, mL Routine albuterol 5mg 5 mg, Univer s (PROVENTIL) 01-29 Inhalation i ty of 2.5 mg /3 14:15: 13:42 , ONCE, 1 [place] mL (0.083 00 :00 dose, On Medica l %) [place] Branch nebulizer 01/29/22 at solution 5 0915, SE mg Dose No Unknown 01-28 00:00: 00 Dose 0 No Unknown 01-28 00:00: 00 Dose 0 No Unknown 01-28 00:00: 00 Dose 0 No Unknown 01-28 00:00: 00 Dose 0 No Unknown 01-28 00:00: 00 FENTanyl PF No 50ug 50 mcg, Un guillermina (SUBLIMAZE [...] by mouth ity of tablet 12:53: daily. [address] FLUoxetine 2021-0 Yes 10mg Take 10 mg U nivers 10 mg 4-06 by mouth ity of capsule 12:53: daily. [address] traMADoL 2021-0 Yes 100mg Take 100 [...] by mouth ity of tablet 12:53: daily. [address] FLUoxetine 2022-0 Yes 10mg Take 10 mg U nivers 10 mg 4-06 by mouth ity of capsule 12:53: daily. [address] traMADoL 2022-0 Yes 100mg Take 100 [...] by mouth ity of tablet 12:53: daily. [address] FLUoxetine 2022-0 Yes 10mg Take 10 mg U nivers 10 mg 4-06 by mouth ity of capsule 12:53: daily. [address] traMADoL 2022-0 Yes 100mg Take 100 [...] by mouth ity of tablet 12:53: daily. [address] FLUoxetine 2022-0 Yes 10mg Take 10 mg U nivers 10 mg 4-06 by mouth ity of capsule 12:53: daily. [address] traMADoL 2022-0 Yes 100mg Take 100 [...] by mouth ity of tablet 12:53: daily. [address] FLUoxetine 2022-0 Yes 10mg Take 10 mg U nivers 10 mg 4-06 by mouth ity of capsule 12:53: daily. [address] traMADoL 2021-0 Yes 100mg Take 100 Univ ers 100 mg 4-06 mg by ity of capsule 12:53: mouth [place] every 6 Medical (six) Branch hours as needed. celecoxib 2021-0 Yes 100mg Take 100 Uni vers (CELEBREX) 4-06 mg by ity of 100 mg 12:53: mouth 2 [place] capsule 05 (two) Medical times [place] daily with meals. amLODIPine 2021-0 Yes 10mg Take 10 mg U nivers 10 mg 4-06 by mouth ity of tablet 12:53: daily. [address] FLUoxetine 2021-0 Yes 10mg Take 10 mg U nivers 10 mg 4-06 by mouth ity of capsule 12:53: daily. [address] traMADoL 2021-0 Yes 100mg Take 100 Univ ers 100 mg 4-06 mg by ity of capsule 12:53: mouth [place] [id number] every 6 Medical (six) Branch hours as needed. predniSONE 2021- No 10mg Take 10 mg Univers 10 mg - 04-06 by mouth ity of tablet 10:31: 00:00 daily. [place] 31 :00 [facility] hydrALAZINE 2021-2021- No 100mg Take 100 Univers 100 mg 4- 04-06 mg by ity of tablet 10:31: 00:00 mouth 2 [place] 31 :00 (two) Medical times [place] daily. cefTRIAXone 2021-0 2021- No 2000mg 2,000 mg, Univers (ROCEPHIN) [...] Therapy: 7 days predniSONE 2021-0 2021- No [id number] Take 2 Univers 10 mg -02 04-22 tablets by ity of tablet 00:00: 04:59 mouth [place] 00 :00 daily for Medical 5 days, Branch THEN 1 tablet daily for 5 days, THEN 0.5 tablets daily for 5 days. predniSONE 2021- No [id number] Take 2 Univers 10 mg 12-07 tablets by ity of tablet 00:00: 04:59 mouth [place] 00 :00 daily for Medical 5 days, Branch THEN 1 tablet daily for 5 days, THEN 0.5 tablets daily for 5 days. azithromyci 2021- No [id number] 500mg Take 1 Univers n 500 mg 12-07 tablet by ity o f tablet 00:00: 04:59 mouth [place] 00 :00 daily for Medical 2 days. Branch azithromyci No [id number] 500mg Take 1 Univers n 500 mg 12-07 tablet by ity o f tablet 00:00: 04:59 mouth [place] 00 :00 daily for Medical 2 days. [place] traMADoL Yes 50mg 50 mg, Univers (ULTRAM) 4-05 Oral, ity of tablet 50 16:44: Q6HPRN, [place] mg 28 Starting Medical on [facility] 12/06/21 at 1144, Until Discontinu ed, Routine, Pain (scale 4-6) ALPRAZolam Yes .5mg 0.5 mg, Univ ers (XANAX) 4-05 Oral, ity of tablet 0.5 16:43: BIDPRN, [place] mg 05 Starting Medical on [facility] 12/06/21 at 1143, Until Discontinu ed, Routine, anxiety HYDROcodone Yes 1{tbl} 1 tablet, Univers -acetaminop 4-05 Oral, ity of hen (NORCO 16:42: Q6HPRN, [place] 5) 5-325 mg 38 Starting Medi dayna tablet 1 on [facility] tablet 12/06/21 at 1142, Until Discontinu ed, Routine, Pain (scale 7-10) azithromyci No 500mg 500 mg, IV Univers n 4-08 Piggyback, ity of (ZITHROMAX) 14:45: 14:44 Q24H ABX, [place] 500 mg in 00 :00 3 doses, Medica l NaCl 0.9% First dose Bran ch (NS) 250 mL on [facility] VIAL-MATE 12/06/21 at IV 0945, Last piggyback [...] 40 mEq 00 First dose Medical on [facility] 12/06/21 at 0900, Until Discontinu ed, Routine enoxaparin 2021-0 Yes 40mg 40 mg, Unive rs (LOVENOX) 4-05 Subcutaneo ity of injection 14:00: us, Q24H, [place] as 40 mg 00 First dose Medical on [facility] 12/06/21 at 0900, Until Discontinu ed, Routine predniSONE 2021-0 Yes 20mg 20 mg, Unive rs (DELTASONE) 4-05 Oral, ity of tablet 20 14:00: DAILY, [place] mg 00 First dose Medical on [facility] 12/06/21 at 0900, Until Discontinu ed, Routine FLUoxetine 2021-0 Yes 20mg 20 mg, Unive rs (PROZAC) 4-05 Oral, ity of capsule 20 14:00: DAILY, [place] mg 00 First dose Medical on [facility] 12/06/21 at 0900, Until Discontinu ed, Routine amLODIPine 2021-0 Yes 5mg 5 mg, Univer s (NORVASC) 4-05 Oral, ity of tablet 5 mg 14:00: DAILY, [place] 00 First dose Medical on [facility] 12/06/21 at 0900, Until Discontinu ed, Routine magnesium 2022-0 Yes 400mg 400 mg, Univ ers oxide 4-05 Oral, BID, ity of (MAG-OX 13:00: First dose [place] 400) tablet 00 on [facility] l 400 mg 12/06/21 at Branch 0800, Until Discontinu ed, Routine ipratropium 2-0 Yes 3mL 3 mL, Unive rs -albuteroL 4-05 Inhalation ity of (DUONEB) 13:00: , QID, [place] 0.5 mg-3 00 First dose Medic al mg(2.5 mg on Sun base)/3 mL 12/06/21 at nebulizer 0800, solution 3 Until mL Discontinu ed, Routine lactobacill Yes .5mg 0.5 mg, Uni vers us 05 Oral, BID, ity of acidophilus 13:00: First [...] 2021- No 1{tbl} 1 tablet, Univers -acetaminop 12-06- Oral, ity of hen (NORCO) 06:00: 04:59 ONCE, 1 [place] 10-325 mg 00 :00 dose, On Medica l tablet 1 Sun12/06/21 Branc h tablet at 0100, Routine fluticasone Yes 1{puff} 1 Puff, Univers propion-rashid 12-05 Inhalation it y of meteroL 13:00: , Q12H, [place] (ADVAIR) 00 First dose Medic al 250-50 on Mon Branch mcg/dose 12/05/21 at inhalation 0800, disk 1 Puff Until Discontinu ed, Routine lurasidone 2021-0 2021- No Take by Uni vers HCl (LATUDA 12-05 04-04 mouth. ity o f ORAL) 05:43: 00:00 [place] 55 :00 Medical Branch acetylcyste 2021-0 2021- No 4mL 800 mg (4 Univers ine 12-05 04-07 mL), ity of (MUCOMYST) 05:00: 04:59 Inhalation [place] 200 mg/mL 00 :00 , Q6H, 12 Medic al (20 %) doses, Branch solution First dose 800 mg on Sun12/05/21 at 0000, Last dose on Sun12/07/21 at 1800, Routine cefTRIAXone 0 Yes 1000mg 1,000 mg, Univers (ROCEPHIN) 4-04 IV ity of 1,000 mg in 03:00: Piggyback, [place] NaCl 0.9% 00 Q24H ABX, Medic al (NS) 50 mL First dose Bra ndh MINI-BAG on [place] 12/04/21 at 2200, Until Discontinu ed, Administer over 30 Minutes, 50 mL
Reas on for Anti-Infec tive: Empiric Therapy for Suspected Infection< br>Empiric Therapy Site: Respirator y
Durat ion of therapy: 72 hours ipratropium 0 Yes 3mL 3 mL, Unive rs -albuteroL -04 Inhalation ity of (DUONEB) 02:00: , Q6HPRN, [place] 0.5 mg-3 00 Starting Medical mg(2.5 mg on [place] Branch base)/3 mL 12/04/21 at nebulizer 2100, solution 3 Until mL Discontinu ed, Routine, Wheezing methylpredn 0 Yes 60mg 60 mg, Univ ers isolone sod 4-04 Slow IV ity o f succ 02:00: Push, [place] (SOLU-MEDRO 00 Q12H, Medical L) First dose Branch injection on Sun 60 mg 12/04/21 at 2100, Until Discontinu ed, Routine HYDROcodone 2021-0 Yes 1{tbl} 1 tablet, Univers -acetaminop 4-04 Oral, ity of hen (NORCO) 01:55: Q6HPRN, [place] as 10-325 mg 51 Starting Medica l tablet 1 on [facility] tablet 12/04/21 at 205, Until Discontinu ed, Routine, Pain (scale 4-6) iopamidol 2021- No [id number] 100mL 100 mL, Univers (ISOVUE 12-04- Intravenou ity o f 370-500 mL) 20:43: 20:43 s, ONCE, 1 [place] injection 00 :00 dose, On Medica l 100 mL [place] 12/04/21 [place] at 1600, Routine enoxaparin Yes 40mg 40 mg, Unive rs (LOVENOX) 12-04 Subcutaneo ity of injection 14:00: [place], DAILY, [place] 40 mg 00 First dose Medical on [facility] 12/04/21 at 0900, Until Discontinu ed, Routine amLODIPine Yes 5mg 5 mg, Univer s (NORVASC) 12-04 Oral, ity of tablet 5 mg 14:00: DAILY, [place] 00 First dose Medical on [facility] 12/04/21 at 0900, Until Discontinu ed, Routine predniSONE 2021- No 20mg 20 mg, Univ ers (DELTASONE) 12-04 04-04 Oral, ity of tablet 20 14:00: 01:54 DAILY, [place] mg 00 :23 First dose Medical on [facility] 12/04/21 at 0900, Until Discontinu ed, Routine lurasidone Yes 20mg 20 mg, Unive rs (LATUDA) 12-04 Oral, ity of tablet 20 12:30: QAM-0730, [place] as mg 00 First dose Medical on [facility] 12/04/21 at 0730, Until Discontinu ed doxycycline Yes 100mg 100 mg, Un guillermina hyclate 12-04 Oral, ity of (Vibramycin 11:00: Q12HA2, [place] as ) capsule 00 First dose Medi dayna 100 mg on [facility] 12/04/21 at 0600, Until Discontinu ed, SE
Re ason for Anti-Infec tive: Empiric Therapy for Suspected Infection< br>Empiric Therapy Site: Respirator y
Du ration of therapy: 7 days NaCl 0.9% 2021- No 500mL at 100 [facility] ers (NS) IV 12-04 04-03 mL/hr, IV ity of infusion 11:00: 15:59 Infusion, José Miguel as 500 mL 00 :00 CONTINUOUS Medical , Starting Branch on [place] 12/04/21 at 0600, Until [place] 12/04/21 at 1059, Routine zolpidem Yes 5mg 5 mg, Univers (AMBIEN) 12-04 Oral, ity of tablet 5 mg 06:14: QHSPRN, [place] as 57 Starting Medical on [facility] 12/04/21 at 0114, Until Discontinu ed, Routine, Insomnia docusate Yes 100mg 100 mg, Unive rs (COLACE) 12-04 Oral, BID, ity o f capsule 100 01:00: First dose [place] mg 00 on [facility] 12/03/21 at [place] 1999, Until Discontinu ed, Routine busPIRone Yes 5mg 5 mg, Univers (BUSPAR) 12-04 Oral, BID, ity o f tablet 5 mg 01:00: First dose [place] 00 on [facility] 12/03/21 at [place] 1999, Until Discontinu ed, Routine ipratropium 2021- No 3mL 3 mL, [facility] ers -albuteroL 12-04 04-04 Inhalation it y of (DUONEB) 01:00: 01:56 , QID, [place] 0.5 mg-3 00 :47 First dose Medic al mg(2.5 mg on [facility] base)/3 mL 12/03/21 at nebulizer 1999, solution 3 Until mL Discontinu ed, Routine ondansetron Yes 4mg 4 mg, Slow Univers (ZOFRAN 12-03 IV Push, ity of (PF)) 22:05: Q6HPRN, [place] injection 4 11 Starting Medi dayna mg on [facility] 12/03/21 at 1705, Until Discontinu ed, Routine, Nausea and Vomiting (N/V) HYDROcodone 0 202- No 1{tbl} 1 tablet, Univers -acetaminop 12-03 04-04 Oral, ity of hen (NORCO 22:05: 01:56 Q6HPRN, [place] as 5) 5-325 mg 07 :02 Starting Medi dayna tablet 1 on [facility] tablet 12/03/21 at 1705, Until 12/04/21 at 2055, Routine, Pain (scale 4-6) acetaminoph Yes 650mg 650 mg, Un guillermina en 12-03 Oral, ity of (TYLENOL) 22:05: Q6HPRN, [place] tablet 650 04 Starting Medic al mg on [facility] 12/03/21 at 1705, Until Discontinu ed, Routine, Pain (scale 1-3) methylpredn 2021- No 125mg 125 mg, U nivers isolone sod 12-03 Slow IV ity of succ 21:00: 22:03 Push, ONCE [place] (SOLU-MEDRO 00 :00 NOW, 1 Medica l L) dose, On [place] injection [facility] 12/03/21 125 mg at 1600, SE albuterol 2021- No 2.5mg 2.5 mg, Uni vers (PROVENTIL) 12-03 Inhalation i ty of 2.5 mg /3 21:00: 22:06 , QID, [place] mL (0.083 00 :33 First dose Medi dayna %) on [facility] nebulizer 12/03/21 at solution 1600, 2.5 mg Until Discontinu ed, Routine ipratropium No .5mg 0.5 mg, Un guillermina (ATROVENT) 12-03 Inhalation it y of 0.02 % 21:00: 22:06 , QID, [place] nebulizer 00 :24 First dose Medi dayna solution on [facility] Branch 0.5 mg 12/03/21 at 1600, Until Discontinu ed, Routine predniSONE Yes 30mg 30 mg, Unive rs (DELTASONE) 3-12 Oral, ity of tablet 30 15:00: DAILY, [place] mg 00 First dose Medical (after Branch last modificati on) on [facility] 11/12/21 at 0900, Until Discontinu ed, Routine [...]
Durat ion of therapy: 72 hours lurasidone 0 Yes Take by Univ ers HCl (LATUDA 3-11 mouth. ity of ORAL) 17:32: [address] lurasidone Yes Take by [facility] ers HCl (LATUDA 3-11 mouth. ity of ORAL) 17:32: [address] lurasidone Yes Take by [facility] ers HCl (LATUDA 3-11 mouth. ity of ORAL) 17:32: [address] KCL 2021- No 20meq 20 mEq, Univers (KLOR-CON 11-11 03-11 Oral, ity of M20) tablet 02:00: 02:20 ONCE, 1 [place] 20 mEq 00 :00 dose, On [facility] Branch 11/10/21 at 2000, Routine predniSONE 2021-0 Yes [id number] 20mg Take 1 Univers 20 mg 3-11 tablet by ity of tablet 00:00: mouth [place] 00 daily. [facility] predniSONE 2021-0 Yes [id number] 20mg Take 1 Univers 20 mg 3-11 tablet by ity of tablet 00:00: mouth [place] 00 daily. [facility] predniSONE 2021-0 2021- No [id number] 20mg Take 1 Univers 20 mg 3-11 04-04 tablet by ity of tablet 00:00: 00:00 mouth [place] 00 :00 daily. [facility] Branch piperacilli 2021- No 3.375g 3.375 g, Univers n-tazobacta 11-1011 IV ity of m (ZOSYN) 22:00: 21:01 [...]
Durat ion of therapy: 72 hours enoxaparin 2021-0 Yes 40mg 40 mg, Unive rs (LOVENOX) 3-10 Subcutaneo ity of injection 15:00: [place], [place]ILY, [place] 40 mg 00 First dose Medical on [facility] Branch 11/10/21 at 0900, Until Discontinu ed, Routine hydroCHLORO 2021-0 Yes 12.5mg 12.5 mg, Univers thiazide 3-10 Oral, ity of (ESIDRIX) 15:00: DAILY, [place] capsule 00 First dose Medica l 12.5 mg on [facility] Branch 11/10/21 at 0900, Until Discontinu ed, Routine amLODIPine 2021-0 Yes 10mg 10 mg, Unive rs (NORVASC) 3-10 Oral, ity of tablet 10 15:00: DAILY, [place] mg 00 First dose Medical on [facility] 11/10/21 at 0900, Until Discontinu ed, Routine predniSONE 2021-0 2022- No 40mg 40 mg, Univ ers (DELTASONE) 3-10 03-11 Oral, ity of tablet 40 15:00: 17:05 DAILY, [place] mg 00 :49 First dose Medical on [facility] 11/10/21 at 0900, Until Discontinu ed, Routine docusate 2021-0 Yes 100mg 100 mg, Unive rs (COLACE) 3-10 Oral, BID, ity o f capsule 100 14:00: First dose [place] mg 00 on [facility] 11/10/21 at Branch 0800, Until Discontinu ed, Routine busPIRone 2021-0 Yes 5mg 5 mg, Univers (BUSPAR) 3-10 Oral, BID, ity o f tablet 5 mg 14:00: First dose [place] 00 on [facility] 11/10/21 at Branch 0800, Until Discontinu ed, Routine lurasidone 2021-0 Yes 20mg 20 mg, Unive rs (LATUDA) 3-10 Oral, ity of tablet 20 13:30: QAM-0730, [place] mg 00 First dose Medical on [facility] 11/10/21 at 0730, Until Discontinu ed morpHINE 2021-0 Yes 2mg 2 mg, Slow Uni vers injection 2 3-10 IV Push, ity of mg 07:05: Q4HPRN, [place] 58 Starting Medical on [place] Branch 11/10/21 at 0105, Until Discontinu ed, Routine, Pain (scale 7-10) ondansetron 0 Yes 4mg 4 mg, Slow Univers (ZOFRAN 3-10 IV Push, ity of (PF)) 05:19: Q6HPRN, [place] injection 4 35 Starting Medi dayna mg on Wed Branch 11/09/21 at 2319, Until Discontinu ed, Routine, Nausea and Vomiting (N/V) HYDROcodone 202- No 1{tbl} 1 tablet, Univers -acetaminop 3-10 03-12 Oral, ity of hen (NORCO 05:19: 05:18 Q6HPRN, [place] 5) 5-325 mg 30 :30 Starting Medi dayna tablet 1 on Sun Branch tablet 11/09/21 at 2319, Until 11/11/21 at 2318, Routine, Pain (scale 4-6) acetaminoph 2021-0 Yes 650mg 650 mg, Un guillermina en 3-10 Oral, ity of (TYLENOL) 05:19: Q6HPRN, [place] tablet 650 28 Starting Medic al mg on Sun Branch 11/09/21 at 2319, Until Discontinu ed, Routine, Pain (scale 1-3) albuterol Yes 2{puff} 2 Puff, Un guillermina (VENTOLIN) 3-10 Inhalation ity of inhaler 2 05:17: , Q6HPRN, [place] as Puff 52 Starting Medical on Wed Branch 11/09/21 at 2317, Until Discontinu ed, Routine, Wheezing, Shortness of Breath iopamidol 202- No [id number] 100mL 100 mL, Univers (ISOVUE 3-10 03-10 40621 Intravenou ity of 370-500 mL) 04:43: 04:44 s, ONCE, 1 [place] injection 00 :00 dose, On Medica l 100 mL 11/09/21 Branch at 2300, Routine morpHINE 0 2021- No 4mg 4 mg, Slow Un guillermina injection 4 3-10 03-10 IV Push, ity of mg 03:45: 02:57 ONCE, 1 [place] 00 :00 dose, On Medical Sun11/09/21 Branch at 2145, SE piperacilli 2021-2021- No 3.375g 3.375 g, Univers n-tazobacta 3- [...] dose, On Sun11/09/21 at 2145, SE ondansetron 2021-2021- No 4mg 4 mg, Slow Univers (ZOFRAN 3 03-10 IV Push, ity of (PF)) 03:00: 01:59 ONCE, 1 [place] injection 4 00 :00 dose, On Medi dayna mg Sun11/09/21 Branch at 2100, SE morpHINE 2021-0 2021- No 4mg 4 mg, Slow Un guillermina injection 4 -10 03-10 IV Push, ity of mg 03:00: 01:58 ONCE, 1 [place] 00 :00 dose, On Medical Sun11/09/21 Branch at 2100, STAT albuterol 2021-0 Yes 2.5mg 2.5 mg, Univ ers (PROVENTIL) 3-10 Inhalation it y of 2.5 mg /3 02:00: , QID, [place] mL (0.083 00 First dose Medi dayna %) on Sun Branch nebulizer 11/09/21 at solution 2000, 2.5 mg Until Discontinu ed, Routine ipratropium 2021-0 Yes .5mg 0.5 mg, Uni vers (ATROVENT) 3-10 Inhalation ity of 0.02 % 02:00: , QID, [place] nebulizer 00 First dose Medi dayna solution on [facility] Branch 0.5 mg 11/09/21 at 1999, Until Discontinu ed, Routine hydroCHLORO 0 Yes [id number] 12.5mg Take 1 Univers thiazide 2-22 capsule by ity o f 12.5 mg 00:00: mouth [place] capsule 00 daily. Medical Branch hydroCHLORO 0 Yes [id number] 12.5mg Take 1 Univers thiazide 2-22 capsule by ity o f 12.5 mg 00:00: mouth [place] capsule 00 daily. Medical Branch hydroCHLORO 0 Yes [id number] 12.5mg Take 1 Univers thiazide 2-22 capsule by ity o f 12.5 mg 00:00: mouth [place] capsule 00 daily. [facility] Branch hydroCHLORO 0 Yes [id number] 12.5mg Take 1 Univers thiazide 2-22 capsule by ity o f 12.5 mg 00:00: mouth [place] capsule 00 daily. [facility] Branch hydroCHLORO 0 Yes [id number] 12.5mg Take 1 Univers thiazide 2-22 capsule by ity o f 12.5 mg 00:00: mouth [place] capsule 00 daily. [facility] Branch hydroCHLORO 0 Yes [id number] 12.5mg Take 1 Univers thiazide 2-22 capsule by ity o f 12.5 mg 00:00: mouth [place] capsule 00 daily. [facility] Branch hydroCHLORO 0 Yes [id number] 12.5mg Take 1 Univers thiazide 2-22 capsule by ity o f 12.5 mg 00:00: mouth [place] capsule 00 daily. [facility] Branch hydroCHLORO 2021- No [id number] 12.5mg Take 1 Univers thiazide 2-22 04-04 capsule by ity of 12.5 mg 00:00: 00:00 mouth [place] capsule 00 :00 daily. [facility] Branch hydroCHLORO 0 2021- No [id number] 12.5mg Take 1 Univers thiazide 2-22 02-21 capsule by ity of 12.5 mg 00:00: 00:00 mouth [place] capsule 00 :00 daily for Medical 30 days. Branch hydroCHLORO 2021-2021- No [id number] 12.5mg Take 1 Univers thiazide 2-22 02-21 capsule by ity of 12.5 mg 00:00: 00:00 mouth [place] capsule 00 :00 daily for Medical 30 days. Branch lurasidone 0 Yes Take by Univ ers HCl (LATUDA 2-21 mouth. ity of ORAL) 17:53: [place] [address] Medical Branch lurasidone 0 Yes Take by Univ ers HCl (LATUDA 2-21 mouth. ity of ORAL) 17:53: [place] [address] Medical Branch lurasidone 0 Yes Take by Univ ers HCl (LATUDA 2-21 mouth. ity of ORAL) 17:53: [place] [address] Medical Branch lurasidone 0 Yes Take by Univ ers HCl (LATUDA 2-21 mouth. ity of ORAL) 10:59: [place] [address] Medical Branch zolpidem 0 2021- No 5mg 5 mg, Univers (AMBIEN) 2-21 02-21 Oral, ity of tablet 5 mg 04:00: 03:07 ONCE, 1 [place] 00 :00 dose, On Medical Sun Branch 10/23/21 at 2200, Routine docusate 2021-0 Yes [id number] 100mg Take 1 U nivers 100 mg 2-21 capsule by ity of capsule 00:00: mouth 2 [place] (two) Medical times Branch daily. busPIRone 5 2021-0 Yes [id number] 5mg Take 1 Univers mg tablet 2-21 tablet by ity o f 00:00: mouth 2 [place] (two) Medical times Branch daily. chlorhexidi 2021-0 Yes [id number] 15mL Swish and Univers ne 0.12 % - spit out ity of mouthwash 00:00: 15 mL 2 [place] (two) Medical times Branch daily. albuterol 2021-0 Yes [id number] 2{puff} Inhale 2 Univers 90 2-21 Puffs ity of mcg/actuati 00:00: every 6 [place] on inhaler 00 (six) Medical hours as Branch needed for Wheezing or Shortness of Breath. predniSONE 2021-0 Yes [id number] 40mg Take 2 Univers 20 mg 2-21 tablets by ity of tablet 00:00: mouth [place] 00 daily. Medical Branch docusate 2021-0 Yes [id number] 100mg Take 1 U nivers 100 mg 2-21 capsule by ity of capsule 00:00: mouth (two) Medical times Branch daily. busPIRone 5 2021-0 Yes [id number] 5mg Take 1 Univers mg tablet 2-21 tablet by ity o f 00:00: mouth (two) Medical times Branch daily. chlorhexidi 2021-0 Yes [id number] 15mL Swish and Univers ne 0.12 % 2-21 spit out ity of mouthwash 00:00: 15 mL 2 (two) Medical times Branch daily. albuterol 2021-0 Yes [id number] 2{puff} Inhale 2 Univers 90 2-21 Puffs ity of mcg/actuati 00:00: every 6 [place] on inhaler 00 (six) Medical hours as Branch needed for Wheezing or Shortness of Breath. predniSONE 2021-0 Yes [id number] 40mg Take 2 Univers 20 mg 2-21 tablets by ity of tablet 00:00: mouth daily. Medical Branch docusate 2021-0 Yes [id number] 100mg Take 1 U nivers 100 mg 2-21 capsule by ity of capsule 00:00: mouth (two) Medical times Branch daily. busPIRone 5 2021-0 Yes [id number] 5mg Take 1 Univers mg tablet 2-21 tablet by ity o f 00:00: mouth (two) Medical times Branch daily. chlorhexidi 2021-0 Yes [id number] 15mL Swish and Univers ne 0.12 % 2-21 spit out ity of mouthwash 00:00: 15 mL (two) Medical times Branch daily. albuterol 2021-0 Yes [id number] 2{puff} Inhale 2 Univers 90 2-21 Puffs ity of mcg/actuati 00:00: every 6 [place] on inhaler 00 (six) Medical hours as Branch needed for Wheezing or Shortness of Breath. predniSONE 2-0 Yes [id number] 40mg Take 2 Univers 20 mg 2-21 tablets by ity of tablet 00:00: mouth daily. Medical Branch docusate 2021-0 Yes [id number] 100mg Take 1 U nivers 100 mg 2-21 capsule by ity of capsule 00:00: mouth (two) Medical times Branch daily. busPIRone 5 2021-0 Yes [id number] 5mg Take 1 Univers mg tablet 2-21 tablet by ity o f 00:00: mouth 2 (two) Medical times Branch daily. chlorhexidi 2021-0 Yes [id number] 15mL Swish and Univers ne 0.12 % 2-21 spit out ity of mouthwash 00:00: 15 mL 2 (two) Medical times Branch daily. albuterol 2021-0 Yes [id number] 2{puff} Inhale 2 Univers 90 2-21 Puffs ity of mcg/actuati 00:00: every 6 [place] on inhaler 00 (six) Medical hours as Branch needed for Wheezing or Shortness of Breath. docusate 2-0 Yes [id number] 100mg Take 1 U nivers 100 mg 2-21 capsule by ity of capsule 00:00: mouth (two) Medical times Branch daily. albuterol 2021-0 Yes [id number] 2{puff} Inhale 2 Univers 90 2-21 Puffs ity of mcg/actuati 00:00: every 6 [place] on inhaler 00 (six) Medical hours as Branch needed for Wheezing or Shortness of Breath. busPIRone 5 2021-0 Yes [id number] 5mg Take 1 Univers mg tablet 2-21 tablet by ity o f 00:00: mouth 2 (two) Medical times Branch daily. chlorhexidi 2021-0 Yes [id number] 15mL Swish and Univers ne 0.12 % 2-21 spit out ity of mouthwash 00:00: 15 mL (two) Medical times Branch daily. docusate 2-0 Yes [id number] 100mg Take 1 U nivers 100 mg 2-21 capsule by ity of capsule 00:00: mouth (two) Medical times Branch daily. busPIRone 5 2021-0 Yes [id number] 5mg Take 1 Univers mg tablet 2-21 tablet by ity o f 00:00: mouth 2 (two) Medical times Branch daily. chlorhexidi 2-0 Yes [id number] 15mL Swish and Univers ne 0.12 % 2-21 spit out ity of mouthwash 00:00: 15 mL 2 (two) Medical times Branch daily. albuterol 2021-0 Yes [id number] 2{puff} Inhale 2 Univers 90 2-21 Puffs ity of mcg/actuati 00:00: every 6 [place] on inhaler 00 (six) Medical hours as Branch needed for Wheezing or Shortness of Breath. docusate 2-0 Yes [id number] 100mg Take 1 U nivers 100 mg 2-21 capsule by ity of capsule 00:00: mouth 2 [place] (two) Medical times Branch daily. busPIRone 5 2021-0 Yes [id number] 5mg Take 1 Univers mg tablet 2-21 tablet by ity o f 00:00: mouth 2 [place] (two) Medical times Branch daily. chlorhexidi 2021-0 Yes [id number] 15mL Swish and Univers ne 0.12 % 2-21 spit out ity of mouthwash 00:00: 15 mL 2 [place] (two) Medical times Branch daily. albuterol 2021-0 Yes [id number] 2{puff} Inhale 2 Univers 90 2-21 Puffs ity of mcg/actuati 00:00: every 6 [place] as on inhaler 00 (six) Medical hours as Branch needed for Wheezing or Shortness of Breath. docusate 2021-0 2021- No [id number] 100mg Take 1 Univers 100 mg 2-21 04-04 capsule by ity of capsule 00:00: 00:00 mouth 2 [place] 00 :00 (two) Medical times Branch daily. busPIRone 5 2021-0 2022- No [id number] 5mg Take 1 Univers mg tablet 2-21 04-04 tablet by ity of 00:00: 00:00 mouth 2 [place] 00 :00 (two) Medical times Branch daily. chlorhexidi 2021-0 2- No [id number] 15mL Swish and Univers ne 0.12 % 2-21 04-04 spit out ity o f mouthwash 00:00: 00:00 15 mL 2 [place] 00 :[place] (two) Medical times Branch daily. albuterol 2021-0 2021- No [id number] 2{puff} Inhale 2 Univers 90 2-21 04-04 Puffs ity of mcg/actuati 00:00: 00:00 every 6 [place] on inhaler 00 :00 (six) Medical hours as Branch needed for Wheezing or Shortness of Breath. predniSONE 2021-2021- No [id number] 40mg Take 2 Univers 20 mg -21 11-24 tablets by ity of tablet 00:00: 04:59 mouth [place] 00 :00 daily for Medical 30 days. Branch predniSONE 2021-2021- No [id number] 40mg Take 2 Univers 20 mg - 03-11 tablets by ity of tablet 00:00: [...] s: acute pain busPIRone 5 2021- No [id number] 5mg Take 1 Univers mg tablet 10-24 tablet by ity of 00:00: 00:00 mouth 2 [place] 00 :00 (two) Medical times Branch daily for 30 days. chlorhexidi 2021- No [id number] 15mL Swish and Univers ne 0.12 % 10-24 spit out ity o f mouthwash 00:00: 00:00 15 mL 2 [place] 00 :[place] (two) Medical times Branch daily for 7 days. albuterol 2021- No [id number] 2{puff} Inhale 2 Univers 90 10-24- Puffs ity of mcg/actuati 00:00: 00:00 every 6 [place] on inhaler 00 :00 (six) Medical hours as Branch needed for Wheezing or Shortness of Breath. predniSONE 2021- No [id number] 40mg Take 2 Univers 20 mg 10-24- tablets by ity of tablet 00:00: 00:00 mouth [place] 00 :00 daily for Medical 30 days. Branch busPIRone 5 2021- No [id number] 5mg Take 1 Univers mg tablet 10-24- tablet by ity of 00:00: 00:00 mouth 2 [place] 00 :00 (two) Medical times Branch daily for 30 days. chlorhexidi 2021- No [id number] 15mL Swish and Univers ne 0.12 % 10-24 spit out ity o f mouthwash 00:00: 00:00 15 mL 2 [place] 00 :[place] (two) Medical times Branch daily for 7 days. phenoL Yes 1{spray 1 [place], Univ ers (SORE 2-20 } Oral, PRN, ity of THROAT 19:03: Starting [place] (PHENOL)) 59 on Sun Medical 1.4 % spray 10/23/21 at Br anch bottle 1 1303, [place] Until Discontinu ed, Routine, Sore throat phenoL Yes 1{spray 1 [place], Univ ers (SORE 2-20 } Oral, PRN, ity of THROAT 19:03: Starting [place] (PHENOL)) 59 on Sun Medical 1.4 % spray 10/23/21 at Br anch bottle 1 1303, [place] Until Discontinu ed, Routine, Sore throat zolpidem 2021- No 5mg 5 mg, Univers (AMBIEN) 10-23 Oral, ity of tablet 5 mg 04:00: 03:54 ONCE, 1 [place] 00 :00 dose, On Medical Sat Branch 10/22/21 at 2200, Routine methylpredn Yes 125mg 125 mg, Un guillermina isolone sod 2-19 Intravenou it y of succ 20:00: s, Q8H, [place] (SOLU-MEDRO 00 First dose Me dical L) (after Branch injection last 125 mg modificati on) on [facility] 10/22/21 at 1400, Until Discontinu ed, Routine methylpredn 2022-0 Yes 125mg 125 mg, Un guillermina isolone sod 2-19 Intravenou it y of succ 20:00: s, Q8H, [place] (SOLU-MEDRO 00 First dose Me dical L) (after Branch injection last 125 mg modificati on) on [facility] 10/22/21 at 1400, Until Discontinu ed, Routine hydroCHLORO 2022-0 Yes 12.5mg 12.5 mg, Univers thiazide 2-19 Oral, ity of (ESIDRIX) 15:30: DAILY, [place] capsule 00 First dose Medica l 12.5 mg on [facility] Branch 10/22/21 at 0930, Until Discontinu ed, Routine amLODIPine 2022-0 Yes 10mg 10 mg, Unive rs (NORVASC) 2-19 Oral, ity of tablet 10 15:30: DAILY, [place] mg 00 First dose Medical on [facility] Branch 10/22/21 at 0930, Until Discontinu ed, Routine hydroCHLORO 2022-0 Yes 12.5mg 12.5 mg, Univers thiazide 2-19 Oral, ity of (ESIDRIX) 15:30: DAILY, [place] capsule 00 First dose Medica l 12.5 mg on [facility] Branch 10/22/21 at 0930, Until Discontinu ed, Routine amLODIPine 2022-0 Yes 10mg 10 mg, Unive rs (NORVASC) 2-19 Oral, ity of tablet 10 15:30: DAILY, [place] mg 00 First dose Medical on [facility] Branch 10/22/21 at 0930, Until Discontinu ed, Routine acetaminoph 2022-0 Yes 650mg 650 mg, Un guillermina en 2-19 Oral, ity of (TYLENOL) 09:54: Q6HPRN, [place] tablet 650 49 Starting Medic al mg on [facility] Branch 10/22/21 at 0354, Until Discontinu ed, Routine, Pain (scale 1-3) acetaminoph 2022-0 Yes 650mg 650 mg, Un guillermina en 2-19 Oral, ity of (TYLENOL) 09:54: Q6HPRN, [place] tablet 650 49 Starting Medic al mg on Sat Branch 10/22/21 at 0354, Until Discontinu ed, Routine, Pain (scale 1-3) chlorhexidi 0 Yes 15mL 15 mL, [facility] ers ne 2- Oral ity of (PERIDEX) 02:00: ([place] 0.12 % 00 Spit Out), Medical mouthwash BID, First Bran ch 15 mL dose on Sun10/21/21 at 1999, Until Discontinu ed, Routine chlorhexidi 0 Yes 15mL 15 mL, Univ ers ne 2- Oral ity of (PERIDEX) 02:00: ([place] 0.12 % 00 Spit Out), Medical mouthwash BID, First Bran ch 15 mL dose on Sun10/21/21 at 1999, Until Discontinu ed, Routine dexMEDEtomi 2021- No .2ug/kg 0.2-1.5 Univers dine 200 10-21-19 /h mcg/kg/hr ity o f mcg in [...] mcg/kg/min ity of 20:41: 15:22 ?99.8 kg [place] 59 :55 (2.994-29. Medical 94 mL/hr, Branch [...] ty of succ 19:00: 15:22 s, Q6H, [place] (SOLU-MEDRO 00 :22 First dose Me dical L) (after Branch injection last 125 mg modificati on) on Sun10/21/21 at 1300, Until Discontinu ed, Routine metoprolol 2021- No 5mg 5 mg, Slow Univers (LOPRESSOR) 2-18 18 IV Push, ity of injection 5 19:00: 19:00 ONCE, 1 [place] mg 00 :00 dose, On Medical Fri Branch 10/21/21 at 1300, Routine EPINEPHrine 2021-0 Yes PRN, Univer s 1:1,000 (1 10-21 Starting ity o f mg/mL) 18:01: on Sun [place] (ADRENALIN) 10/21/21 at Wi dical injection 1201, Branch Until Discontinu ed, Routine, Intra-op EPINEPHrine 2021-0 Yes PRN, Univer s 1:1,000 (1 10-21 Starting ity o f mg/mL) 18:01: on Sun [place] (ADRENALIN) 10/21/21 at Wi dical injection 1201, Branch Until Discontinu ed, Routine, Intra-op ondansetron 2-0 Yes 4mg 4 mg, Slow [...] 2-18 Starting ity of injection 17:01: on Sun [place] 10/21/21 at [facility] 1101, Branch Until Discontinu ed, Routine, Intra-op NaCl 0.9% 2-0 Yes PRN, Univers (NS) 2-18 Starting ity of injection 17:01: on Sun [place] 10/21/21 at [facility] 1101, Branch Until Discontinu ed, Routine, Intra-op morpHINE 2022-0 Yes 4mg 4 mg, Slow Uni vers injection 4 2-17 IV Push, ity of mg 23:22: Q4HPRN, [place] 52 Starting Medical on [place] Branch 10/20/21 at 1722, Until Discontinu ed, Routine, Pain (scale 7-10) morpHINE 2021-0 Yes 4mg 4 mg, Slow Uni vers injection 4 17 IV Push, ity of mg 23:22: Q4HPRN, [place] 52 Starting Medical on [place] Branch 10/20/21 at 1722, Until Discontinu ed, Routine, Pain (scale 7-10) methylpredn 2021- No 125mg 125 mg, U nivers isolone sod 10-20 Intravenou i ty of succ 20:00: 17:53 s, Q8H, [place] (SOLU-MEDRO 00 :24 First dose Me dical L) (after Branch injection last 125 mg modificati on) on Nicole 10/20/21 at 1400, Until Discontinu ed, Routine furosemide 2021- No 40mg 40 mg, Univ ers (LASIX) 10-20 Slow IV ity of injection 18:00: 18:19 Push, [place] 40 mg 00 :00 ONCE, 1 Medical dose, On Branch [facility] 10/20/21 at 1200, Routine pantoprazol 0 Yes 40mg 40 mg, Univ ers e 2-17 Oral, ity of (PROTONIX) 16:45: DAILY, [place] EC tablet 00 First dose Medi dayna 40 mg on [place] Branch 10/20/21 at 1045, Until Discontinu ed, Routine pantoprazol 0 Yes 40mg 40 mg, Univ ers e 2-17 Oral, ity of (PROTONIX) 16:45: DAILY, [place] EC tablet 00 First dose Medi dayna 40 mg on [facility] Branch 10/20/21 at 1045, Until Discontinu ed, Routine alum-mag 0 Yes 30mL 30 mL, Univers hydroxide-s 2-17 Oral, ity of imeth 16:37: [place], [place] (MAALOX 49 Starting Medical PLUS / on [place] Branch MAG-AL 10/20/21 at PLUS) 1037, 200-200-20 Until mg/5 mL Discontinu suspension ed, 30 mL Routine, Indigestio n alum-mag 0 Yes 30mL 30 mL, Univers hydroxide-s 2-17 Oral, ity of imeth 16:37: [place], [place] (MAALOX 49 Starting Medical PLUS / on [facility] Branch MAG-AL 10/20/21 at PLUS) 1037, 200-200-20 Until mg/5 mL Discontinu suspension ed, 30 mL Routine, Indigestio n acetaminoph No 650mg 650 mg, U nivers en 10-2018 Oral, ity of (TYLENOL) 16:16: 17:01 Q6HPRN, [place] tablet 650 26 :51 Starting Medic al mg on [facility] Branch 10/20/21 at 1016, Until Sun10/21/21 at 1101, Routine, Pain (scale 1-3) polyethylen 0 Yes 17g 17 g, Unive rs e glycol 2-17 Oral, ity of 3350 powder 15:00: DAILY, [place] 17 g 00 First dose Medical on [facility] 10/20/21 at 0900, Until Discontinu ed, Routine polyethylen 0 Yes 17g 17 g, Unive rs e glycol 2-17 Oral, ity of 3350 powder 15:00: DAILY, [place] 17 g 00 First dose Medical on [facility] 10/20/21 at 0900, Until Discontinu ed, Routine [...] First dose [place] mg 00 on Sun [facility] 10/19/21 at Branch 1999, Until Discontinu ed, [...] 1mg 1 mg, Slow U nivers (ATIVAN) -17 10-16 IV Push, ity of injection 1 17:00: 17:33 Q4HPRN, [place] mg 00 :38 Starting Medical on Sun10/17/21 at 1100, Until Sun10/19/21 at 1133, Routine, Anxiety, Agitation ipratropium 202-0 Yes 3mL 3 mL, Unive rs -albuteroL -14 Inhalation ity of (DUONEB) 14:00: , Q4H, [place] 0.5 mg-3 00 First dose Medic al mg(2.5 mg on Sun Branch base)/3 mL 10/17/21 at nebulizer 0800, solution 3 Until mL Discontinu ed, Routine ipratropium 2021-0 Yes 3mL 3 mL, Unive rs -albuteroL 14 Inhalation ity of (DUONEB) 14:00: , Q4H, [place] 0.5 mg-3 00 First dose Medic al mg(2.5 mg on Sun Branch )/3 mL 10/17/21 at nebulizer 0800, solution 3 Until mL Discontinu ed, Routine lidocaine 2021-0 2021- No 5mL 5 mL, Univer s 1% (PF) -14 -14 Subcutaneo ity o f (XYLOCAINE) 13:45: 13:45 , ONCE, [place] injection 5 00 :00 1 dose, On [...] dose, On Medi dayna mg Sun Branch 10/16/21 at 2200, Routine busPIRone 0 Yes 5mg 5 mg, Univers (BUSPAR) 2-14 Oral, BID, ity o f tablet 5 mg 02:00: First dose on [facility] 10/16/21 at [place] 1999, Until Discontinu ed, Routine busPIRone Yes 5mg 5 mg, Univers (BUSPAR) 2-14 Oral, BID, ity o f tablet 5 mg 02:00: First dose on [facility] 10/16/21 at [place] 1999, Until Discontinu ed, Routine methylpredn No 60mg 60 mg, Uni vers isolone sod 10-16 Slow IV ity of succ 23:00: 17:25 Push, Q8H, [place] (SOLU-MEDRO 00 :30 First dose Me dical L) on [facility] injection 10/16/21 at 60 mg 1700, Until Discontinu ed, Routine HYDROcodone No 1{tbl} 1 tablet, Univers -acetaminop 10-16 Oral, ity of hen (NORCO 19:49: 17:01 Q6HPRN, [place] as 5) 5-325 mg 46 :51 Starting Medi dayna tablet 1 on [facility] tablet 10/16/21 at 1349, Until Sun10/21/21 at 1101, Routine, Pain (scale 4-6) cefTRIAXone 2021- No 1000mg 1,000 mg, Univers (ROCEPHIN) 10-16 IV ity of 1,000 mg in 18:30: 18:56 [place], [place] NaCl 0.9% 00 :00 Q24H ABX, Medic al (NS) 50 mL 5 doses, Branc h MINI-BAG First dose on [place] 10/16/21 at 1230, Last dose on Nicole [...] 16:47 [place], [place] 0.5 mg 49 :31 [id number], Medical Starting Branch on 10/15/21 at 1543, Until 10/17/21 at 1047, Routine, Anxiety iopamidol 2021- No [id number] 100mL 100 mL, Univers (ISOVUE 10-15 Intravenou [...] IV 00 :17 IV Medical Piggyback Piggyback, [facility] RTU 1,500 Q12H ABX, mg First dose on 10/15/21 at 0400, Until Discontinu ed, Administer over 90 Minutes
Reason for Anti-Infec tive: Documented Infection< br>Documen britney Infection Site: Blood
D uration of Therapy: 7 days ceFEPIme 2021- No 1000mg 1,000 mg, U nivers (MAXIPIME) 10-15 IV ity of 1,000 mg in 09:15: 16:12 [place], [place] NaCl 0.9% 00 :17 Q12H ABX, Medic al (NS) 50 mL First dose [facility] MINI-BAG on 10/15/21 at 0315, [...] Sun10/19/21 at 1133, Routine, Pain (scale 7-10) medroxyprog 2020-09 No 1mg/mL esterone 0-21 150 mg/mL 00:00: intramuscul 00 ar suspension metronidazo 2020-09 No 1mg le 500 mg 0-14 tablet 00:00: 00 Flagyl 500 1 No 1mg mg tablet 0-11 00:00: 00 Flagyl 500 1 No 1mg mg tablet 0-11 00:00: 00 medroxyprog 0 No 1mg/mL esterone 6-24 150 mg/mL 00:00: intramuscul 00 ar suspension lurasidone 0 Yes Take by [facility] ers HCl (LATUDA 7-17 mouth. ity of ORAL) [...] % 00:00: [place] ointment 00 Medical Branch [facility] Yes TK 1 C PO [...] % 00:00: [place] ointment 00 Medical Branch [facility] Yes TK 1 C PO U nivers -hydrochlor 5-24 QAM ity of othiazide 00:00: [place] 37.5-25 mg 00 Medical per capsule Branch [facility] Yes TK 1 C PO U nivers -hydrochlor 5-24 QAM ity of othiazide 00:00: [place] 37.5-25 mg 00 Medical per [facility] SMILEY EXT AA Univers ne valerate 5-24 BID ity of 0.1 % 00:00: [place] ointment 00 Medical Branch [facility] Yes TK 1 C PO U nivers -hydrochlor 5-24 QAM ity of othiazide 00:00: [place] 37.5-25 mg 00 Medical per capsule Branch betamethaso Yes SMILEY EXT AA Univers ne valerate 5-24 BID ity of 0.1 % 00:00: [place] ointment 00 Medical Branch [facility] Yes TK 1 C PO U nivers -hydrochlor 5-24 QAM ity of othiazide 00:00: [place] 37.5-25 mg 00 Medical per [facility] SMILEY EXT AA Univers ne valerate 5-24 BID ity of 0.1 % 00:00: [place] ointment 00 Medical Branch [facility] Yes TK 1 C PO U nivers -hydrochlor 5-24 QAM ity of othiazide 00:00: [place] 37.5-25 mg 00 Medical per capsule Branch betamethaso 2021- No SMILEY EXT AA Univers ne valerate 01-24 BID ity of 0.1 % 00:00: 00:00 [place] ointment 00 :00 Medical Branch triamterene 2021- No TK 1 C PO Univers -hydrochlor 01-24 QAM ity of othiazide 00:00: 00:00 [place] 37.5-25 mg 00 :00 Medical per capsule Branch DEXILANT 60 Yes TK 1 C PO U nivers mg capsule 05-31 QD ity of 00:00: 00 Medical Branch DEXILANT 60 Yes TK 1 C PO U nivers mg capsule 05-31 QD ity of 00:00: 00 Medical Branch DEXILANT 60 Yes TK 1 C PO U nivers mg capsule 05-31 QD ity of 00:00: Medical Branch DEXILANT 60 Yes TK 1 C PO U nivers mg capsule 05-31 QD ity of 00:00: [place] [facility] DEXILANT 60 Yes TK 1 C PO U nivers mg capsule 05-31 QD ity of 00:00: 00 Medical Branch DEXILANT 60 Yes TK 1 C PO U nivers mg capsule 05-31 QD ity of 00:00: [place] [facility] DEXILANT 60 Yes TK 1 C PO U nivers mg capsule 05-31 QD ity of 00:00: Medical Branch DEXILANT 60 Yes TK 1 C PO U nivers mg capsule 05-31 QD ity of 00:00: Medical Branch DEXILANT 60 2021- No TK 1 C PO Univers mg capsule 05-31- QD ity of 00:00: 00:00 [place] 00 [...] PRN ity of tablet 00:00: FOR 30 [facility] proMETHazin 202- No TK 1 T PO Univers e 25 mg 3-29 04-04 Q 12 H PRN ity o f tablet 00:00: 00:00 FOR 30 00 [facility] amLODIPine Yes TK 1 T PO Un guillermina 5 mg tablet 3-21 Q NIGHTLY ity of 00:00: [facility] amLODIPine Yes TK 1 T PO Un guillermina 5 mg tablet 3-21 Q NIGHTLY ity of 00:00: Medical Branch amLODIPine Yes TK 1 T PO Un guillermina 5 mg tablet 3-21 Q NIGHTLY ity of 00:00: [facility] amLODIPine Yes TK 1 T PO Un guillermina 5 mg tablet 3-21 Q NIGHTLY ity of 00:00: [facility] amLODIPine Yes TK 1 T PO Un guillermina 5 mg tablet 3-21 Q NIGHTLY ity of 00:00: Medical Branch amLODIPine Yes TK 1 T PO Un guillermina 5 mg tablet 3-21 Q NIGHTLY ity of 00:00: [facility] amLODIPine Yes TK 1 T PO Un guillermina 5 mg tablet 3-21 Q NIGHTLY ity of 00:00: Medical Branch amLODIPine Yes TK 1 T PO Un guillermina 5 mg tablet 3-21 Q NIGHTLY ity of 00:00: Medical Branch amLODIPine 2021- No TK 1 T PO U nivers 5 mg tablet 3-21 04-04 Q NIGHTLY it y of 00:00: 00:00 [place] 00 :00 Medical Branch HYDROcodone Yes 1{tbl} [...] s mg tablet 00 :00 Medical Branch Zoloft 100 0 No 15mg mg tablet 4-16 00:00: 00 trazodone 2015-0 No 51mg 100 mg 4-16 tablet 00:00: 00 betamethaso 2013-0 Yes [id number] Apply to Univers ne 2-13 area(s) ity of dipropionat 00:00: two (2) José Miguel as e 00 times Medical (DIPROLENE) daily. Branch 0.05 % cream betamethaso 2013-0 Yes [id number] Apply to Univers ne 2-13 area(s) ity of dipropionat 00:00: two (2) [place] as e 00 times Medical (DIPROLENE) daily. Branch 0.05 % cream betamethaso 2013-0 Yes [id number] Apply to Univers ne 2-13 area(s) ity of dipropionat 00:00: two (2) [place] as e 00 times Medical (DIPROLENE) daily. Branch 0.05 % cream betamethaso 2013-0 Yes [id number] Apply to Univers ne 2-13 area(s) ity of dipropionat 00:00: two (2) [place] as e 00 times Medical (DIPROLENE) daily. Branch 0.05 % cream betamethaso 2013- Yes [id number] Apply to [facility] [place] [facility] ne 2-13 area(s) ity of dipropionat 00:00: two (2) [place] as e 00 times Medical (DIPROLENE) daily. Branch 0.05 % cream betamethaso 2013- Yes [id number] Apply to [facility] [place] [facility] ne 2-13 area(s) ity of dipropionat 00:00: two (2) [place] as e 00 times Medical (DIPROLENE) daily. Branch 0.05 % cream betamethaso 2013-0 Yes [id number] Apply to [facility] [place] [facility] ne 2-13 area(s) ity of dipropionat 00:00: two (2) [place] as e 00 times Medical (DIPROLENE) daily. Branch 0.05 % cream betamethaso 2013- Yes [id number] Apply to [place] [facility] 2-13 area(s) ity of dipropionat 00:00: two (2) [place] as e 00 times Medical (DIPROLENE) daily. Branch 0.05 % cream betamethaso 2012-2021- No [id number] Apply to [place] [facility] 2-13 04-04 area(s) ity of dipropionat 00:00: 00:00 [place] times Medical (DIPROLENE) daily. Branch 0.05 % cream Immunizations Ordered Filled Immunization Date Status Comments [facility] e Immunization Name Name SARS-COV-2 COVID-19 2021-03-03 Completed Unive rsity of MODERNA VACCINE 00:00:00 [facility] Branch SARS-COV-2 COVID-19 2021-03-03 Completed Unive rsity of MODERNA VACCINE 00:00:00 [facility] SARS-COV-2 COVID-19 2021-03-03 Completed Unive rsity of MODERNA VACCINE 00:00:00 [facility] SARS-COV-2 COVID-19 2021-03-03 Completed Unive rsity of MODERNA VACCINE 00:00:00 [facility] SARS-COV-2 COVID-19 2021-03-03 Completed Unive rsity of MODERNA VACCINE 00:00:00 [facility] SARS-COV-2 COVID-19 2021-03-03 Completed Unive rsity of [...] Unive rsity of MODERNA VACCINE 00:00:00 [place] [facility] ical Branch SARS-COV-2 COVID-19 2021-02-01 Completed Unive rsity of MODERNA VACCINE 00:00:00 [place] [facility] ical Branch SARS-COV-2 COVID-19 2021-02-01 Completed Unive rsity of MODERNA VACCINE 00:00:00 [place] Med ical Branch SARS-COV-2 COVID-19 2021-02-01 Completed Unive rsity of MODERNA VACCINE 00:00:00 [place] [facility] ical Branch SARS-COV-2 COVID-19 2021-02-01 Completed Unive rsity of MODERNA VACCINE 00:00:00 [place] Med ical Branch SARS-COV-2 COVID-19 2021-02-01 Completed Unive rsity of MODERNA VACCINE 00:00:00 [place] [facility] ical Branch SARS-COV-2 COVID-19 2021-02-01 Completed Unive rsity of MODERNA VACCINE 00:00:00 [place] Med ical Branch SARS-COV-2 COVID-19 2021-02-01 Completed Unive rsity of MODERNA VACCINE 00:00:00 [place] [facility] ical Branch SARS-COV-2 COVID-19 2021-02-01 Completed Unive rsity of MODERNA VACCINE 00:00:00 [facility] SARS-COV-2 COVID-19 2021-02-01 Completed Unive rsity of MODERNA VACCINE 00:00:00 [facility] Influenza, 2020-09-02 Completed seasonal, inj 00:00:00 Influenza Virus 2007-07-02 Completed Universit y of Vaccine 00:00:00 [facility] Influenza Virus 2007-07-02 Completed Universit y of Vaccine 00:00:00 [facility] Influenza Virus 2007-07-02 Completed Universit y of Vaccine 00:00:00 [facility] Influenza Virus 2007-07-02 Completed Universit y of Vaccine 00:00:00 [facility] Influenza Virus 2007-07-02 Completed Universit y of Vaccine 00:00:00 [facility] Influenza Virus 2007-07-02 Completed Universit y of Vaccine 00:00:00 [facility] Influenza Virus 2007-07-02 Completed Universit y of Vaccine 00:00:00 [facility] Influenza Virus 2007-07-02 Completed Universit y of Vaccine 00:00:00 [facility] Influenza Virus 2007-07-02 Completed Universit y of Vaccine 00:00:00 [facility] Influenza Virus 2007-07-02 Completed Universit y of Vaccine 00:00:00 [facility] Influenza Virus 2007-07-02 Completed Universit y of Vaccine 00:00:00 [facility] Influenza Virus 2007-07-02 Completed Universit y of Vaccine 00:00:00 [facility] Influenza Virus 2007-07-02 Completed Universit y of Vaccine 00:00:00 [facility] Influenza Virus 2007-07-02 Completed Universit y of Vaccine 00:00:00 [facility] Influenza Virus 2007-07-02 Completed Universit y of Vaccine 00:00:00 [facility] Influenza Virus 2007-07-02 Completed Universit y of Vaccine 00:00:00 [facility] Influenza Virus 2007-07-02 Completed Universit y of Vaccine 00:00:00 [facility] Influenza Virus 2007-07-02 Completed Universit y of Vaccine 00:00:00 [facility] Influenza Virus 2007-07-02 Completed Universit y of Vaccine 00:00:00 [facility] Vital Signs Vital Name Observation Time Observation Value Comments Source Height 2022-04-05 15:26:00 160.02 CM Weight 2022-04-05 15:26:00 90.26 KG Systolic blood 2022-02-26 13:59:00 136 mm[Hg] Univer sity of pressure [place] [facility] Diastolic blood 2022-02-26 13:59:00 101 mm[Hg] Unive rsity of pressure [place] [facility] Heart rate 2022-02-26 13:59:00 79 /min [facility] [place] [facility] Body temperature 2022-02-26 13:59:00 36.78 Carleen Univ ersity of [place] [facility] Respiratory rate 2022-02-26 13:59:00 20 /min Univ ersity of [place] [facility] Oxygen saturation in 2022-02-26 13:59:00 100 /min University of Arterial blood by [place] [employer] dayna Pulse oximetry Branch Body height 2022-02-26 04:37:00 160 cm [facility]i ty [facility] [place] [facility] Body weight 2022-02-26 04:37:00 92.08 kg [facility] [place] [facility] BMI 2022-02-26 04:37:00 35.96 kg/m2 [facility] [place] [facility] Systolic blood 2022-02-23 06:00:00 115 mm[Hg] Univer sity of pressure [place] [facility] Diastolic blood 2022-02-23 06:00:00 83 mm[Hg] Unive rsity of pressure [place] [facility] Heart rate 2022-02-23 06:00:00 62 /min [facility] [place] [facility] Respiratory rate 2022-02-23 06:00:00 18 /min Univ ersity of [place] [facility] Oxygen saturation in 2022-02-23 06:00:00 97 /min University of Arterial blood by [place] [employer] Pulse oximetry Branch Body temperature 2022-02-23 02:45:00 37.83 Carleen Univ ersity of [place] [facility] Body height 2022-02-23 02:45:00 160 cm [facility] [place] [facility] Body weight 2022-02-23 02:45:00 92.08 kg [facility] [place] [facility] BMI 2022-02-23 02:45:00 35.96 kg/m2 [facility] [place] [facility] Systolic blood 2022-01-29 21:54:12 118 mm[Hg] Univer sity of pressure [place] [facility] Diastolic blood 2022-01-29 21:54:12 74 mm[Hg] Unive rsity of pressure [place] [facility] Heart rate 2022-01-29 21:54:12 98 /min Universi ty [facility] [place] [facility] Respiratory rate 2022-01-29 21:54:12 24 /min Univ ersity of [place] [facility] Oxygen saturation in 2022-01-29 21:54:12 98 /min University of Arterial blood by [facility] Pulse oximetry Branch Body temperature 2022-01-29 18:53:00 37 Carleen Univ ersity of [place] [facility] Body height 2022-01-29 18:53:00 160 cm [facility]i ty [facility] [place] [facility] Body weight 2022-01-29 18:53:00 90.719 kg [facility] [place] [facility] BMI 2022-01-29 18:53:00 35.43 kg/m2 [facility] [place] [facility] Systolic blood 2022-01-29 15:01:00 138 mm[Hg] Univer sity of pressure [place] [facility] Diastolic blood 2022-01-29 15:01:00 82 mm[Hg] Unive rsity of pressure [place] [facility] Heart rate 2022-01-29 15:01:00 88 /min [facility]i ty [facility] [place] [facility] Respiratory rate 2022-01-29 15:01:00 15 /min Univ ersity of [place] [facility] Oxygen saturation in 2022-01-29 15:01:00 96 /min University of Arterial blood by [facility] Pulse oximetry Branch Body temperature 2022-01-29 12:58:00 36.61 Carleen Univ ersity of [place] [facility] Body weight 2022-01-29 12:58:00 81.647 kg [facility] [place] [facility] BMI 2022-01-29 12:58:00 31.89 kg/m2 [facility] [place] [facility] Height 2022-01-05 08:28:00 160.02 CM Weight 2022-01-05 08:28:00 81.64 KG Systolic blood 2022-01-03 04:43:12 152 mm[Hg] Univer sity of pressure [place] [facility] Diastolic blood 2022-01-03 04:43:12 112 mm[Hg] Unive rsity of pressure [place] [facility] Body temperature 2022-01-03 04:43:12 37.28 Carleen Univ ersity of [place] [facility] Respiratory rate 2022-01-03 04:43:12 17 /min Univ ersity of [place] [facility] Heart rate 2022-01-03 04:42:33 88 /min [facility]i [facility] [place] [facility] Oxygen saturation in 2022-01-03 04:42:33 97 /min University of Arterial blood by [place] [employer] Pulse oximetry Branch Body height 2022-01-03 02:36:00 160 cm [facility]i [facility] [place] [facility] Body weight 2022-01-03 02:36:00 81.647 kg [facility]i [facility] [place] [facility] BMI 2022-01-03 02:36:00 31.89 kg/m2 [facility] [place] [facility] Body temperature 2021-12-07 13:30:00 37.17 Carleen Univ ersity [facility] [place] [facility] Respiratory rate 2021-12-07 13:30:00 23 /min Univ ersity of [place] [facility] Oxygen saturation in 2021-12-07 13:14:00 97 /min University of Arterial blood by [place] [employer] Pulse oximetry Branch Systolic blood 2021-12-07 09:00:00 157 mm[Hg] Univer sity of pressure [place] [facility] Diastolic blood 2021-12-07 09:00:00 99 mm[Hg] Unive rsity of pressure [place] [facility] Heart rate 2021-12-07 09:00:00 82 /min [facility] [place] [facility] Body weight 2021-12-07 08:10:00 95.709 kg [facility] [place] [facility] BMI 2021-12-07 08:10:00 37.38 kg/m2 [facility] [place] [facility] Body height 2021-12-06 06:30:00 160 cm [facility] [place] [facility] Systolic blood 2021-12-05 09:10:00 126 mm[Hg] Univer sity of pressure [place] [facility] Diastolic blood 2021-12-05 09:10:00 71 mm[Hg] Unive rsity of pressure [place] [facility] Heart rate 2021-12-05 09:10:00 85 /min [facility] [place] [facility] Body temperature 2021-12-05 09:10:00 36.83 Carleen Univ ers[facility] [place] [facility] Respiratory rate 2021-12-05 09:10:00 18 /min Univ ersity of [place] [facility] Oxygen saturation in 2021-12-05 09:10:00 96 /min University of Arterial blood by [facility] Pulse oximetry Branch Body height 2021-12-03 23:16:00 160 cm [facility] [place] [facility] Body weight 2021-12-03 23:16:00 81.647 kg [facility] [place] [facility] BMI 2021-12-03 23:16:00 31.89 kg/m2 [facility] [place] [facility] Systolic blood 2021-11-11 18:12:00 152 mm[Hg] Univer sity of pressure [place] [facility] Diastolic blood 2021-11-11 18:12:00 93 mm[Hg] Unive rsity of pressure [place] [facility] Heart rate 2021-11-11 18:12:00 108 /min [facility] [place] [facility] Body temperature 2021-11-11 18:12:00 37.06 Carleen Univ ers[facility] [place] [facility] Respiratory rate 2021-11-11 18:12:00 20 /min Univ ersity of [place] [facility] Oxygen saturation in 2021-11-11 18:12:00 95 /min University of Arterial blood by [facility] Pulse oximetry Branch Body height 2021-11-10 17:22:00 160 cm [facility] [place] [facility] Body weight 2021-11-10 17:22:00 91 kg [facility] [place] [facility] BMI 2021-11-10 17:22:00 35.54 kg/m2 [facility] [place] [facility] Systolic blood 2021-10-24 17:05:00 143 mm[Hg] Univer sity of pressure [place] [facility] Diastolic blood 2021-10-24 17:05:00 90 mm[Hg] Unive rsity of pressure [place] [facility] Heart rate 2021-10-24 17:05:00 103 /min [facility] [place] [facility] Body temperature 2021-10-24 17:05:00 36.22 Carleen Univ [facility] [place] [facility] Respiratory rate 2021-10-24 17:05:00 18 /min Univ ersity [facility] [place] [facility] Oxygen saturation in 2021-10-24 17:05:00 95 /min University of Arterial blood by [facility] Pulse oximetry Branch Body weight 2021-10-22 10:08:00 71.215 kg bed scale [facility] [place] [facility] BMI 2021-10-22 10:08:00 28.72 kg/m2 [facility] [place] [facility] Body height 2021-10-17 14:00:00 157.5 cm Universi ty [facility] Systolic blood 2021-10-21 15:36:00 129 mm[Hg] Univer sity of pressure [facility] Diastolic blood 2021-10-21 15:36:00 82 mm[Hg] Unive rsity of [facility] Heart rate 2021-10-21 15:36:00 100 /min [facility] [place] [facility] Respiratory rate 2021-10-21 15:36:00 20 /min [facility] Oxygen saturation in 2021-10-21 15:36:00 100 /min [facility] Arterial blood by [facility] Pulse oximetry Branch Body temperature 2021-10-21 13:07:00 36.83 Carleen [facility] height 2021-10-17 14:00:00 157.5 cm [facility] Body weight 2021-10-17 14:00:00 99.791 kg [facility] BMI 2021-10-17 14:00:00 28.72 kg/m2 [facility] BP Systolic 2022-04-15 13:48:00 155 mm[Hg] BP Diastolic 2022-04-15 13:48:00 88 mm[Hg] Weight Measured 2022-04-15 13:48:00 190.60 pounds Height Measured 2022-04-15 13:48:00 65.10 inches Body Temperature 2022-04-15 13:48:00 98.10 degrees Heart Rate 2022-04-15 13:48:00 85.00 /min Respiratory Rate 2022-04-15 13:48:00 18.00 /min BP Systolic 2022-02-09 15:04:00 152 mm[Hg] BP Diastolic 2022-02-09 15:04:00 55 mm[Hg] Weight Measured 2022-02-09 15:04:00 210.80 pounds Height Measured 2022-02-09 15:04:00 65.10 inches Body Temperature 2022-02-09 15:04:00 98.40 degrees Heart Rate 2022-02-09 15:04:00 92.00 /min Respiratory Rate 2022-02-09 15:04:00 Body Temperature 2022-01-28 08:55:00 98.40 degrees Heart Rate 2022-01-28 08:55:00 93.00 /min Respiratory Rate 2022-01-28 08:55:00 BP Systolic 2022-01-28 08:55:00 106 mm[Hg] BP Diastolic 2022-01-28 08:55:00 62 mm[Hg] Weight Measured 2022-01-28 08:55:00 206.60 pounds Height Measured 2022-01-28 08:55:00 65.10 inches BP Systolic 2021-06-23 09:03:00 148 mm[Hg] BP Diastolic 2021-06-23 09:03:00 96 mm[Hg] Weight Measured 2021-06-23 09:03:00 177.80 pounds Height Measured 2021-06-23 09:03:00 65.10 inches Body Temperature 2021-06-23 09:03:00 98.10 degrees Heart Rate 2021-06-23 09:03:00 79.00 /min Respiratory Rate 2021-06-23 09:03:00 17.00 /min BP Systolic 2021-06-09 13:35:00 141 mm[Hg] BP Diastolic 2021-06-09 13:35:00 95 mm[Hg] Weight Measured 2021-06-09 13:35:00 178.20 pounds Height Measured 2021-06-09 13:35:00 65.10 inches Body Temperature 2021-06-09 13:35:00 97.80 degrees Heart Rate 2021-06-09 13:35:00 96.00 /min Respiratory Rate 2021-06-09 13:35:00 17.00 /min BP Systolic 2021-02-24 15:33:00 155 mm[Hg] BP Diastolic 2021-02-24 15:33:00 85 mm[Hg] Weight Measured 2021-02-24 15:33:00 174.00 pounds Height Measured 2021-02-24 15:33:00 65.10 inches Body Temperature 2021-02-24 15:33:00 99.00 degrees Heart Rate 2021-02-24 15:33:00 84.00 /min Respiratory Rate 2021-02-24 15:33:00 17.00 /min BP Systolic 2020-11-26 13:23:00 130 mm[Hg] BP Diastolic 2020-11-26 13:23:00 87 mm[Hg] Weight Measured 2020-11-26 13:23:00 169.60 pounds Height Measured 2020-11-26 13:23:00 65.10 inches Body Temperature 2020-11-26 13:23:00 99.50 degrees Heart Rate 2020-11-26 13:23:00 96.00 /min Respiratory Rate 2020-11-26 13:23:00 16.00 /min BP Systolic 2020-09-02 09:27:00 99 mm[Hg] BP Diastolic 2020-09-02 09:27:00 66 mm[Hg] Weight Measured 2020-09-02 09:27:00 166.20 pounds Height Measured 2020-09-02 09:27:00 65.10 inches Body Temperature 2020-09-02 09:27:00 98.90 degrees Heart Rate 2020-09-02 09:27:00 80.00 /min Respiratory Rate 2020-09-02 09:27:00 BP Systolic 2020-05-31 14:35:00 98 mm[Hg] BP Diastolic 2020-05-31 14:35:00 64 mm[Hg] Weight Measured 2020-05-31 14:35:00 175.60 pounds Height Measured 2020-05-31 14:35:00 65.10 inches Body Temperature 2020-05-31 14:35:00 98.70 degrees Heart Rate 2020-05-31 14:35:00 108.00 /min Respiratory Rate 2020-05-31 14:35:00 17.00 /min BP Systolic 2014-12-17 14:31:00 124 mm[Hg] BP Diastolic 2014-12-17 14:31:00 85 mm[Hg] Weight Measured 2014-12-17 14:31:00 139.40 pounds Height Measured 2014-12-17 14:31:00 65.10 inches Body Temperature 2014-12-17 14:31:00 98.20 degrees Heart Rate 2014-12-17 14:31:00 Respiratory Rate 2014-12-17 14:31:00 Procedures Procedure Date / Time Performing Clinician Source Performed INTRO ANES AGT PERIPH 2022-04-06 00:00:00 [facility] INTRO AIF PERIPH NRV 2022-04-06 00:00:00 [facility] ASSIGNMENT OF BENEFITS 2022-03-14 20:14:00 [facility] [place] [facility] TH[facility]AX [facility] CONTRAST 2022-02-26 13:20:05 [facility] BASIC METABOLIC PANEL 2022-02-26 09:29:00 [facility] (NA, K, CL, CO2, GLUCOSE, Medica l Branch BUN, CREATININE, CA) CBC WITH DIFF 2022-02-26 09:29:00 [facility] EKG-12 LEAD 2022-02-26 06:20:06 Sobeida Samson [facility] LIPASE 2022-02-26 03:28:00 Sobeida Samson [facility] TROPONIN I 2022-02-26 03:28:00 Sobeida Samson [facility] COMP. METABOLIC PANEL 2022-02-26 03:28:00 Sobeida Samson [facility] [facility] ([id number]) [facility] CBC WITH DIFF 2022-02-26 03:28:00 Sobeida Samson [facility] N-TERMINAL PRO-BNP 2022-02-26 03:28:00 Sobeida Samson [facility] XR CHEST 1 VW 2022-02-26 01:52:00 Sobeida Samson [facility] COVID-19 (ID NOW RAPID 2022-02-26 01:03:00 Sobeida Samson Un [facility] TESTING) [facility] CT HEAD WO CONTRAST 2022-02-25 23:59:38 Sobeida Samson [facility] CONSENT/REFUSAL FOR 2022-02-25 22:55:28 Doctor Unassigned, [facility] DIAGNOSIS AND TREATMENT [place] [facility] EKG-12 LEAD 2022-02-23 06:15:35 Bro Pandya [facility] TROPONIN I 2022-02-23 05:20:00 [facility] 2022-02-23 03:47:00 [facility] 2022-02-23 03:26:00 Bro Pandya [facility] TROPONIN I 2022-02-23 03:12:00 Bro Pandya [facility] COMP. METABOLIC PANEL 2022-02-23 03:12:00 [id number] CBC WITH DIFF 2022-02-23 03:12:00 [facility] RAPID INFLUENZA A/B 2022-02-23 03:12:00 Bro Pandya [facility] N-TERMINAL PRO-BNP 2022-02-23 03:12:00 Bro Pandya [facility] COVID-19 (ID NOW RAPID 2022-02-23 03:12:00 Bro Pandya [facility] TESTING) [facility] CONSENT/REFUSAL FOR 2022-02-23 02:38:26 Doctor Unassigned, [facility] DIAGNOSIS AND TREATMENT [place] [facility] XR LUMBAR SPINE 2 VW 2022-01-29 20:25:58 Jaden Rene [facility] CONSENT/REFUSAL FOR 2022-01-29 18:42:46 Doctor Unassigned, [facility] DIAGNOSIS AND TREATMENT [place] [facility] XR CHEST 1 VW 2022-01-29 13:43:00 Mai Del Rosario [facility] TROPONIN I 2022-01-29 13:34:00 Mai Del Rosario [facility] COMP. METABOLIC PANEL 2022-01-29 13:34:00 Mai Del Rosario [facility] ([id number]) [facility] CBC WITH DIFF 2022-01-29 13:34:00 Mai Del Rosario [facility] N-TERMINAL PRO-BNP 2022-01-29 13:34:00 Mai Del Rosario [facility] AC PANEL 21 + LACTIC ACID 2022-01-29 13:34:00 Mai Del Rosario [facility] CONSENT/REFUSAL FOR 2022-01-29 12:47:51 Doctor Unassigned, [facility] DIAGNOSIS AND TREATMENT [place] [facility] INTRO ANES AGT PERIPH 2022-01-05 00:00:00 [facility]XI PC Center INTRO AIF PERIPH NRV 2022-01-05 00:00:00 [facility] XR CHEST 1 VW 2022-01-03 04:29:34 Jacklyn Guillen [facility] CONSENT/REFUSAL FOR 2022-01-03 02:30:38 Doctor Unassigned, [facility] DIAGNOSIS AND TREATMENT [place] [facility] MAGNESIUM 2021-12-07 09:01:00 David Lazo [facility] COMP. METABOLIC PANEL 2021-12-07 09:01:00 Gely Cordova [facility] ([id number]) [facility] CBC WITH DIFF 2021-12-07 09:01:00 David Lazo [facility] N-TERMINAL PRO-BNP 2021-12-07 09:01:00 Gely Cordova [facility] URINALYSIS 2021-12-06 16:46:00 Mary ady [facility] URINE CULTURE 2021-12-06 16:46:00 Gely Cordova [facility] PHOSPHORUS 2021-12-06 10:11:00 Gely Cordova [facility] MAGNESIUM 2021-12-06 10:11:00 Gely Cordova [facility] VITAMIN B12, LEVEL 2021-12-06 10:11:00 Gely Cordova [facility] C-REACTIVE PROTEIN 2021-12-06 10:11:00 Gely Cordova [facility] TROPONIN I 2021-12-06 10:11:00 Gely Cordova [facility] FREE T4 2021-12-06 10:11:00 Mary ady [facility] COMP. METABOLIC PANEL 2021-12-06 10:11:00 Gely Cordova [facility] ([id number]) [facility] SEDIMENTATION RATE 2021-12-06 10:11:00 Mary ady [facility] CBC WITH DIFF 2021-12-06 10:11:00 Mary [facility] N-TERMINAL PRO-BNP 2021-12-06 10:11:00 Mary [facility] VITAMIN D, 25-OH 2021-12-06 10:11:00 Mary [facility] FREE T3 2021-12-06 10:11:00 Mary [facility] PROCALCITONIN 2021-12-06 10:11:00 Mary [facility] AC VBG + LACTIC ACID 2021-12-06 10:10:00 Mary ady [facility] COVID-19 (ID NOW RAPID 2021-12-06 00:09:00 Christos Tovar [facility] TESTING) [facility] Branch LAB ONLY COVID 2021-12-06 00:09:00 Christos Tovar [facility] URIC ACID 2021-12-06 00:07:00 Mary ady [facility] FERRITIN SERUM 2021-12-06 00:07:00 Mary [facility] TROPONIN I 2021-12-06 00:07:00 Christos Tovar [facility] THYROID STIMULATING 2021-12-06 00:07:00 Mary ady [facility] HORMONE [facility] COMP. METABOLIC PANEL 2021-12-06 00:07:00 Christos Tovar [facility] ([id number]) [facility] Branch LIPID PANEL ([id number])(TOTAL 2021-12-06 00:07:00 Gely Cordova [facility] CHOLESTEROL, [facility] TRIGLYCERIDES, HDL) IRON PANEL 2021-12-06 00:07:00 Mary ady [facility] DIFF CONSULT 2021-12-06 00:07:00 Mary ady [facility] CBC WITH DIFF 2021-12-06 00:07:00 Christos Tovar [facility] GLYCOSYLATED HEMOGLOBIN 2021-12-06 00:07:00 Gely Cordova [facility] (A1C) [facility] PROTHROMBIN TIME / INR 2021-12-06 00:07:00 Christos Tovar [facility] ACTIVATED PARTIAL 2021-12-06 00:07:00 Christos Tovar [facility] THRMPLAS ANTONINO [facility] N-TERMINAL PRO-BNP 2021-12-06 00:07:00 Christos Tovar [facility] HB ECG ROUTINE & RHYTHM 2021-12-06 00:05:16 Christos Tovar [facility] XR CHEST 1 VW 2021-12-05 23:50:38 Guy [facility] ASSIGNMENT OF BENEFITS 2021-12-05 23:47:08 Doctor Unassigned, [facility] NOTICE OF PRIVACY 2021-12-05 22:03:59 Doctor Unassigned, [facility]REFUSAL FOR 2021-12-05 22:03:42 Doctor [facility], [facility] CHEST 2021-12-04 20:47:15 Michel [facility] LACTIC ACID WHOLE BLOOD 2021-12-04 15:19:00 Michel [facility] BLOOD CULTURE SCREEN 2021-12-04 10:21:00 Donal You [facility] LACTIC ACID WHOLE BLOOD 2021-12-04 09:08:00 Donal You [facility] BASIC METABOLIC PANEL 2021-12-04 09:07:00 Michel [facility] (NA, K, CL, CO2, GLUCOSE, Medica l Branch BUN, CREATININE, CA) CBC WITH DIFF 2021-12-04 09:07:00 Michel [facility] EKG-12 LEAD 2021-12-03 21:29:00 Maury Brush [facility] AC ABG + LACTIC ACID 2021-12-03 21:13:00 Maury Brush [facility] AMYLASE 2021-12-03 21:12:00 Maury Brush [facility] LIPASE 2021-12-03 21:12:00 Maury Brush [facility] TROPONIN I 2021-12-03 21:12:00 Maury Brush [facility] COMP. METABOLIC PANEL 2021-12-03 21:12:00 Maury Brush [facility] ([id number]) [facility] CBC WITH DIFF 2021-12-03 21:12:00 Maury Brush [facility] N-TERMINAL PRO-BNP 2021-12-03 21:12:00 Maury Brush [facility] PROCALCITONIN 2021-12-03 21:12:00 Anaya Guallpa [facility] XR CHEST 1 VW 2021-12-03 20:52:01 Maury Brush [facility] URINALYSIS 2021-12-03 20:34:00 Maury Brush [facility] COVID-19 (ID NOW RAPID 2021-12-03 20:34:00 Maury Brush [facility] TESTING) [facility] AUTHORIZATION FOR RELEASE 2021-11-23 05:01:00 Doctor Unassigned, [facility] OF [facility] [place] [facility] EKG-12 LEAD 2021-11-11 05:25:58 Sobeida Samson [facility] BASIC METABOLIC PANEL 2021-11-10 09:16:00 Wilfrid Hathaway [facility] (NA, K, CL, CO2, GLUCOSE, Medica l Branch BUN, CREATININE, CA) CBC WITH DIFF 2021-11-10 09:16:00 Wilfrid Hathaway [facility] LACTIC ACID WHOLE BLOOD 2021-11-10 09:16:00 Sobeida Samson [facility] CT CHEST PULMONARY 2021-11-10 04:49:21 Sobeida Samson [facility] ANGIOGRAM [facility] BLOOD CULTURE SCREEN 2021-11-10 03:58:00 Sobeida Samson [facility] BLOOD CULTURE WORKUP 2021-11-10 03:58:00 Sobeida Samson [facility] BLOOD CULTURE SCREEN 2021-11-10 02:56:00 Sobeida Samson [facility] PROTHROMBIN TIME / INR 2021-11-10 01:47:00 Sobeida Samson Un [facility] D-DIMER 2021-11-10 01:47:00 Sobeida Samson [facility] ACTIVATED PARTIAL 2021-11-10 01:47:00 Sobeida Samson [facility] (ID NOW RAPID 2021-11-10 01:47:00 Sobeida Samson [facility] TESTING) [facility] LAB ONLY COVID 2021-11-10 01:47:00 Sobeida Samson [facility] INTERPRETATION [facility] AC ABG + LACTIC ACID 2021-11-10 01:45:00 Sobeida Samson [facility] XR CHEST 1 VW 2021-11-10 01:38:00 Sobeida Samson [facility] COMP. METABOLIC PANEL 2021-11-10 01:32:00 Sobeida Samson [facility] ([id number]) [facility] CBC WITH DIFF 2021-11-10 01:32:00 Sobeida Samson [facility] CONSENT/REFUSAL FOR 2021-11-10 00:42:41 Doctor Casandra, [facility] DIAGNOSIS AND TREATMENT [facility] AUTHORIZATION FOR RELEASE 2021-11-07 06:01:00 Doctor Unananci, [facility] EXTERNAL PROVIDER - 2021-11-03 06:01:00 Doctor Casandra, [facility] WOMEN'S SERVICES [place] [facility] RADIOLOGY XR CHEST 1 VW 2021-10-24 18:45:48 Abu Mali [facility] XR CHEST 1 VW 2021-10-24 18:45:48 Abu [facility] BASIC METABOLIC PANEL 2021-10-24 12:36:00 Benjamin Gross [facility] (NA, K, CL, CO2, GLUCOSE, Medica [facility] Branch BUN, CREATININE, CA) CBC WITHOUT DIFF 2021-10-24 12:36:00 Renato [facility] BASIC METABOLIC PANEL 2021-10-24 12:36:00 [facility] (NA, K, CL, CO2, GLUCOSE, Medica [facility] Branch BUN, CREATININE, CA) CBC WITHOUT DIFF 2021-10-24 12:36:00 Renato [facility] XR CHEST 1 VW 2021-10-22 15:58:26 Sunday Olivarez [facility] XR CHEST 1 VW 2021-10-22 15:58:26 Sunday Olivarez [facility] MAGNESIUM 2021-10-22 10:47:[address] [facility] BASIC METABOLIC PANEL 2021-10-22 10:47:00 Rose [facility] (NA, K, CL, CO2, GLUCOSE, Medica l Branch BUN, CREATININE, CA) CBC WITH DIFF 2021-10-22 10:47:[address] [facility] MAGNESIUM 2021-10-22 10:47:[address] [facility] BASIC METABOLIC PANEL 2021-10-22 10:47:00 [facility] (NA, K, CL, CO2, GLUCOSE, Medica [facility] Branch BUN, CREATININE, CA) CBC WITH DIFF 2021-10-22 10:47:[address] [facility] XR CHEST 1 VW 2021-10-21 22:10:00 Abu Sher [facility] XR CHEST 1 VW 2021-10-21 22:10:00 Abki Olivarez [facility] AC PANEL 20 + LACTIC ACID 2021-10-21 20:28:00 Sunday Samson [facility] AC PANEL 20 + LACTIC ACID 2021-10-21 20:28:00 Sunday Samson [facility] CYTO BAL 2021-10-21 18:49:00 Sunday Samson [facility] BODY FLUID DIRECT COUNT 2021-10-21 18:47:[address] [facility] BODY FLUID DIRECT COUNT 2021-10-21 18:47:[address] [facility] AFB CULTURE 2021-10-21 18:46:00 Anaya Guallpa [facility] FUNGUS (ROUTINE) CULTURE 2021-10-21 18:46:00 Sunday Olivarez [facility] MYCOBACTERIUM 2021-10-21 18:46:00 Sunday [facility]arez [facility] TUBERCULOSIS COMPLEX PCR [facility] RESPIRATORY PANEL BY PCR 2021-10-21 18:46:00 Sunday Olivarez [facility] AFB CULTURE 2021-10-21 18:46:00 Anaya Guallpa [facility] FUNGUS (ROUTINE) CULTURE 2021-10-21 18:46:00 Anaya Guallpa [facility] MYCOBACTERIUM 2021-10-21 18:46:00 Anaya Guallpa [facility] TUBERCULOSIS COMPLEX PCR [facility] RESPIRATORY PANEL BY PCR 2021-10-21 18:46:00 Sunday Olivarez [facility] BASIC METABOLIC PANEL 2021-10-21 18:44:00 Anaya Guallpa [facility] (NA, K, CL, CO2, GLUCOSE, Medica [facility] Branch BUN, CREATININE, CA) BASIC METABOLIC PANEL 2021-10-21 18:44:00 Aanya Guallpa [facility] (NA, K, CL, CO2, GLUCOSE, [facility] BUN, CREATININE, CA) CBC WITH DIFF 2021-10-21 18:41:00 Anaya Guallpa [facility] PROTHROMBIN TIME / INR 2021-10-21 18:41:00 Anaya Guallpa Bang [facility] FIBRINOGEN 2021-10-21 18:41:00 Anaya Guallpa [facility] CBC WITH DIFF 2021-10-21 18:41:00 Anaya Guallpa [facility] PROTHROMBIN TIME / INR 2021-10-21 18:41:00 Anaya Guallpa iversity [facility] FIBRINOGEN 2021-10-21 18:41:00 Anaya Guallpa [facility] ANTI-NUCLEAR ANTIBODY 2021-10-21 18:41:00 Anaya Guallpa [facility] [place] FL TIME OR 2021-10-21 18:18:06 Anaya Guallpa [facility] (NON-REPORTABLE) Medical [facility] FL TIME OR 2021-10-21 18:18:06 Anaya Guallpa [facility] (NON-REPORTABLE) [facility] FLEXIBLE BRONCHOSCOPY 2021-10-21 16:21:00 Anaya Guallpa [facility] FLEXIBLE BRONCHOSCOPY 2021-10-21 16:21:00 Anaya Guallpa [facility] XR CHEST 1 VW 2021-10-20 11:13:00 Anaya Guallpa [facility] XR CHEST 1 VW 2021-10-20 11:13:00 ki Olivarez [facility] CBC WITH DIFF 2021-10-20 10:30:00 Maggie Morgan [facility] CBC WITH DIFF 2021-10-20 10:30:00 Maggie Morgan [facility] URIC ACID 2021-10-20 10:29:00 Sunday Olivarez [facility] BASIC METABOLIC PANEL 2021-10-20 10:29:00 Maggie Morgan [facility] (NA, K, CL, CO2, GLUCOSE, Medica [facility] Branch BUN, CREATININE, CA) URIC ACID 2021-10-20 10:29:00 Abu [facility] BASIC METABOLIC PANEL 2021-10-20 10:29:00 Maggie Morgan [facility] (NA, K, CL, CO2, GLUCOSE, [facility]ica [facility] Branch BUN, CREATININE, CA) XR CHEST 1 VW 2021-10-19 18:11:14 Abu Sher [facility] XR CHEST 1 VW 2021-10-19 18:11:14 Abu Atherlewis, Emran [facility] CBC WITH DIFF 2021-10-19 09:05:00 Maggie Morgan [facility] CBC WITH DIFF 2021-10-19 09:05:00 Maggie Morgan [facility] MAGNESIUM 2021-10-19 09:04:00 Ezkevin, [facility] BASIC METABOLIC PANEL 2021-10-19 09:04:00 Maggie Morgan [facility] (NA, K, CL, CO2, GLUCOSE, Medica l Branch BUN, CREATININE, CA) MAGNESIUM 2021-10-19 09:04:00 Ezzo, [facility] BASIC METABOLIC PANEL 2021-10-19 09:04:00 Maggie Morgan [facility] (NA, K, CL, CO2, GLUCOSE, Medica [facility] Branch BUN, CREATININE, CA) POCT GLUCOSE (AUTOMATED) 2021-10-19 02:24:00 Blanca Talavera [facility] POCT GLUCOSE (AUTOMATED) 2021-10-19 02:24:00 Blanca Talavera [facility] COVID-19 (MOLECULAR 2021-10-18 19:48:00 Vale Jones [facility] NUCLEIC ACID AMPLIFICATION) LAB ONLY COVID 2021-10-18 19:48:00 Vale Jones [facility] INTERPRETATION [facility] COVID-19 (MOLECULAR 2021-10-18 19:48:00 [facility] NUCLEIC ACID AMPLIFICATION) LAB ONLY COVID 2021-10-18 19:48:00 Vale Jones [facility] INTERPRETATION [facility] ANGIOTENSIN CONVERTING 2021-10-18 19:45:00 [facility]ME [facility] RHEUMATOID FACTOR 2021-10-18 19:45:00 Amadou Putnam [facility] ANCA SCREEN 2021-10-18 19:45:00 Vale Jones [facility] ANGIOTENSIN CONVERTING 2021-10-18 19:45:00 [facility] RHEUMATOID FACTOR 2021-10-18 19:45:00 Amadou Putnam [facility] ANCA SCREEN 2021-10-18 19:45:00 Vale Jones [facility] XR CHEST 1 VW 2021-10-18 12:37:00 Abu [facility], [facility] XR CHEST 1 2021-10-18 12:37:00 Abu Atherlewis, [facility] PHOSPHORUS 2021-10-18 09:30:[address] [facility] MAGNESIUM 2021-10-18 09:30:00 Ezzo, [facility] BASIC METABOLIC PANEL 2021-10-18 09:30:00 [facility] (NA, K, CL, CO2, GLUCOSE, Medica l Branch BUN, CREATININE, CA) CBC WITH DIFF 2021-10-18 09:30:[address] [facility] GLYCOSYLATED HEMOGLOBIN 2021-10-18 09:30:00 Maggie Morgan [facility] (A1C) [facility] PHOSPHORUS 2021-10-18 09:30:[address] [facility] MAGNESIUM 2021-10-18 09:30:00 Ezzo, [facility] BASIC METABOLIC PANEL 2021-10-18 09:30:00 [facility] (NA, K, CL, CO2, GLUCOSE, Medica [facility] Branch BUN, CREATININE, CA) CBC WITH DIFF 2021-10-18 09:30:[address] [facility] GLYCOSYLATED HEMOGLOBIN 2021-10-18 09:30:00 Maggie Morgan [facility] (A1C) [facility] BASIC METABOLIC PANEL 2021-10-18 00:43:00 Abu Anaya Olivarez [facility] (NA, K, CL, CO2, GLUCOSE, Medica [facility] Branch BUN, CREATININE, CA) BASIC METABOLIC PANEL 2021-10-18 00:43:00 Abu AtherAnaya saucedo [facility] (NA, K, CL, CO2, GLUCOSE, [facility] Branch BUN, CREATININE, CA) N-TERMINAL PRO-BNP 2021-10-17 21:27:00 Josie [facility] N-TERMINAL PRO-BNP 2021-10-17 21:27:00 Josie [facility] TRANSTHORACIC ECHO (TTE) 2021-10-17 17:05:00 Bk [facility] TRANSTHORACIC ECHO (TTE) 2021-10-17 17:05:00 Bk [facility] XR CHEST 1 2021-10-17 17:00:50 Josie, [facility] XR CHEST 1 2021-10-17 17:00:50 Josie, [facility] XR CHEST 1 2021-10-17 14:17:12 Josie [facility] XR CHEST 1 2021-10-17 14:17:12 Josie [facility] ABG+COOX+NA+K+GLU+CA2+ 2021-10-17 13:25:00 [facility] ABG+COOX+NA+K+GLU+CA2+ 2021-10-17 13:25:00 Faraz [facility] PHOSPHORUS 2021-10-17 10:28:00 Josie [facility] MAGNESIUM 2021-10-17 10:28:00 Josie [facility] BASIC METABOLIC PANEL 2021-10-17 10:28:00 Josie [facility] (NA, K, CL, CO2, GLUCOSE, Medica l Branch BUN, CREATININE, CA) SEDIMENTATION RATE 2021-10-17 10:28:00 Faraz Rodriguez [facility] CBC WITH DIFF 2021-10-17 10:28:00 Josie [facility] ANTI-NUCLEAR ANTIBODY 2021-10-17 10:28:00 Faraz Rodriguez [facility] ANTI-NUCLEAR ANTIBODY 2021-10-17 10:28:00 Rodriguez, [facility] ANTI-DOUBLE STRANDED DNA 2021-10-17 10:28:00 Amadou Putnam [facility] HIV 1/2 AG-AB WITH REFLEX 2021-10-17 10:28:00 AbAnaya Dover [facility] ANTI-NUCLEAR 2021-10-17 10:28:00 Jennifer [facility] ANTIBODY-PATHOLOGIST [facility] INTERPRETATION PHOSPHORUS 2021-10-17 10:28:00 Josie [facility] MAGNESIUM 2021-10-17 10:28:00 Josie [facility] BASIC METABOLIC PANEL 2021-10-17 10:28:00 Josie [facility] (NA, K, CL, CO2, GLUCOSE, Medica [facility] Branch BUN, CREATININE, CA) SEDIMENTATION RATE 2021-10-17 10:28:00 Jennifer [facility] CBC WITH DIFF 2021-10-17 10:28:00 Josie [facility] ANTI-NUCLEAR ANTIBODY 2021-10-17 10:28:00 Jennifer [facility] SCREEN [facility] ANTI-NUCLEAR ANTIBODY 2021-10-17 10:28:00 Jennifer [facility] ANTI-DOUBLE STRANDED DNA 2021-10-17 10:28:00 Amadou Putnam [facility] HIV 1/2 AG-AB WITH REFLEX 2021-10-17 10:28:00 Anaya Guallpa [facility] ANTI-NUCLEAR 2021-10-17 10:28:00 Jennifer [facility] ANTIBODY-PATHOLOGIST [facility] INTERPRETATION BLOOD CULTURE SCREEN 2021-10-16 17:40:00 [facility] 2021-10-16 17:40:00 Amadou Putnam Un [facility] XR CHEST 1 VW 2021-10-16 16:56[facility] 2021-10-16 16:56[facility]IR[facility]EL BY PCR 2021-10-16 14:46:00 Amadou Putnam [facility] RESPIRATORY PANEL BY PCR 2021-10-16 14:46:00 Amadou Putnam [facility] PHOSPHORUS 2021-10-16 10:47:00 Ahmed, Samir [facility] MAGNESIUM 2021-10-16 10:47:00 Ahmed, Samir [facility] BASIC METABOLIC PANEL 2021-10-16 10:47:00 Ahleighann, Samir [facility] sity [facility] (NA, K, CL, CO2, GLUCOSE, Medica [facility] Branch BUN, CREATININE, CA) CBC WITH DIFF 2021-10-16 10:47:00 Josie [facility] AC PANEL 20 + LACTIC ACID 2021-10-16 10:47:00 Samir Galindo [facility] PHOSPHORUS 2021-10-16 10:47:00 AhmedSamir [facility] MAGNESIUM 2021-10-16 10:47:00 Ahmed, [facility] BASIC METABOLIC PANEL 2021-10-16 10:47:00 AhSamir lawton [facility] sity [facility] (NA, K, CL, CO2, GLUCOSE, Medica [facility] Branch BUN, CREATININE, CA) CBC WITH DIFF 2021-10-16 10:47:00 Josie, [facility] AC PANEL 20 + LACTIC ACID 2021-10-16 10:47:00 Samir Galindo [facility] C-REACTIVE PROTEIN 2021-10-15 22:38:00 Faraz Rodriguez [facility] TROPONIN I 2021-10-15 22:38:00 [facility] BASIC METABOLIC PANEL 2021-10-15 22:38:00 AhSamir lawton [facility] sity [facility] (NA, K, CL, CO2, GLUCOSE, Medica [facility] Branch BUN, CREATININE, CA) C-REACTIVE PROTEIN 2021-10-15 22:38:00 Faraz Rodriguez [facility] TROPONIN I 2021-10-15 22:38:00 Ilan [facility] BASIC METABOLIC PANEL 2021-10-15 22:38:00 Josie [facility] (NA, K, CL, CO2, GLUCOSE, Medica l Branch BUN, CREATININE, CA) PNEUMOCOCCAL ANTIGEN 2021-10-15 21:49:00 Josie [facility] PNEUMOCOCCAL ANTIGEN 2021-10-15 21:49:00 Josie [facility] [facility]INARY 2021-10-15 21:48:00 Josie [facility] ANTIGEN TST [facility]ION[facility] URINARY 2021-10-15 21:48:00 Josie [facility] ANTIGEN [facility] CT ANGIOGRAM CHEST 2021-10-15 19:22:00 Sunday Olivarez [facility] CT ANGIOGRAM CHEST 2021-10-15 19:22:00 Sunday Olivarez [facility] TROPONIN I 2021-10-15 17:29:00 Blanca Talavera [facility] RAPID INFLUENZA A/B 2021-10-15 17:29:00 Nicol Bourgeois [facility] N-TERMINAL PRO-BNP 2021-10-15 17:29:00 Nicol Bourgeois [facility] PROCALCITONIN 2021-10-15 17:29:00 Nicol Bourgeois [facility] COVID-19 (MOLECULAR 2021-10-15 17:29:00 Nicol Bourgeois [facility] NUCLEIC ACID AMPLIFICATION) LAB ONLY COVID 2021-10-15 17:29:00 Nicol Bourgeois [facility] INTERPRETATION [facility] TROPONIN I 2021-10-15 17:29:00 Ilan Blanca [facility] RAPID INFLUENZA A/B 2021-10-15 17:29:00 Nicol Bourgeois [facility] N-TERMINAL PRO-BNP 2021-10-15 17:29:00 Nicol Bourgeois [facility] PROCALCITONIN 2021-10-15 17:29:[address] [facility] Medical Branch COVID-19 (MOLECULAR 2021-10-15 17:29:00 [facility] Medical Branch NUCLEIC ACID AMPLIFICATION) LAB ONLY COVID 2021-10-15 17:29:[address] [facility] INTERPRETATION Medical Branch COVID-19 (ID NOW RAPID 2021-10-15 13:03:00 Samir Galindo [facility] TESTING) Medical Branch LAB ONLY COVID 2021-10-15 13:03:00 Josie Samir [facility] INTERPRETATION [facility] COVID-19 (ID NOW RAPID 2021-10-15 13:03:00 Samir Galindo [facility] TESTING) Medical Branch LAB ONLY COVID 2021-10-15 13:03:00 Josie [facility] XR CHEST 1 VW 2021-10-15 09:46:38 Ilan [facility] XR CHEST 1 VW 2021-10-15 09:46:38 Ilan [facility] MAGNESIUM 2021-10-15 08:16:00 Josie [facility] BASIC METABOLIC PANEL 2021-10-15 08:16:00 Samir Galindo [facility] (NA, K, CL, CO2, GLUCOSE, Medica l Branch BUN, CREATININE, CA) PROCALCITONIN 2021-10-15 08:16:00 [facility] 2021-10-15 08:16:00 Josie [facility] BASIC METABOLIC PANEL 2021-10-15 08:16:00 Josie [facility] (NA, K, CL, CO2, GLUCOSE, Medica l Branch BUN, CREATININE, CA) PROCALCITONIN 2021-10-15 08:16:00 Ilan [facility] ABG+COOX+NA+K+GLU+CA2+ 2021-10-15 07:24:00 Josie Sam[facility] ABG+COOX+NA+K+GLU+CA2+ 2021-10-15 07:24:00 Samir Gal[facility] TROPONIN I 2021-10-15 07:10:00 Ilan [facility] CBC WITH DIFF 2021-10-15 07:10:00 [facility] 2021-10-15 07:10:00 Ilan [facility] CBC WITH DIFF 2021-10-15 07:10:00 [facility] / MSSA SCREEN BY 2021-10-15 07:09:00 Josie [facility] PCR, [facility] MRSA / MSSA SCREEN BY 2021-10-15 07:09:00 Josie [facility], [facility] AUTHORIZATION FOR RELEASE 2021-06-09 05:01:00 Doctor Unassigned, [facility] [place] [facility] Plan of Care Planned Activity Planned Date Details Comments Source Goal Plan of Care Note [code = 75922-8] Goal Plan of Care Note [code = 32162-3] Goal Plan of Care Note [code = 40827-6] Goal Plan of Care Note [code = 11793-4] Goal Plan of Care Note [code = 20735-8] Goal Plan of Care Note [code = 17898-6] Goal Plan of Care Note [code = 80131-5] Goal Plan of Care Note [code = 09981-2] Goal Plan of Care Note [code = 95043-4] Goal Plan of Care Note [code = 07074-1] Goal Plan of Care Note [code = 46347-0] Goal Plan of Care Note [code = 47837-4] Goal Plan of Care Note [code = 18572-6] Goal Plan of Care Note [code = 99460-0] Goal Plan of Care Note [code = 01726-2] Goal Plan of Care Note [code = 90493-2] Goal Plan of Care Note [code = 17252-3] Goal Plan of Care Note [code = 23717-3] Goal Plan of Care Note [code = 93796-2] Goal Plan of Care Note [code = 28589-4] Goal Plan of Care Note [code = 38515-6] Goal Plan of Care Note [code = 86107-3] Goal Plan of Care Note [code = 34119-1] Encounters Start End Encounter Admission Attending Care Care Encounter Source Date/Time Date/Time Type Type Clinicians Facility Department ID 2022-05-11 2022-05-11 Outpatient Jonh CAMERON [facility] WWACU [id number] 11:42:00 23:59:00 LINDSEY [employer] [facility] 2022-04-17 2022-04-17 Outpatient R [facility] [id number] Univers 20:00:00 20:00:00 [id number] [facility] 2022-04-17 2022-04-17 Outpatient R WILMAR MADISON [facility] [id number] Univers 20:00:00 20:00:00 [facility] 2022-04-15 2022-04-15 Outpatient R [facility] [id number] -[id number] Univers 08:00:00 08:00:00 [id number] ity [facility] 2022-04-15 2022-04-15 Outpatient R [facility] [id number] Univers 08:00:00 08:00:00 [facility] 2022-04-15 2022-04-15 Outpatient [id number] ad [id number] 00:00:00 00:00:00 Visit [id number] 1790-08-04 2022-04-06 Outpatient Jonh CAMERON [facility] WWACU [id number] 12:15:00 16:00:00 LINDSEY [employer] [facility] 2022-03-15 2022-03-15 [facility] [employer] 1, [employer] Sleep Lab Bed [facility] 1. 2.840.114 [id number] Univers 20:00:00 22:30:00 Visit Wilmar Madison 350.1.13. 10 [facility] 4.2.7.2.686 [facility] [id number] [address] 2022-03-15 2022-03-15 Outpatient R [facility] [id number] Univers 20:00:00 20:00:00 [id number] ity [facility] 2022-03-15 2022-03-15 Outpatient R WILMAR MADISON [facility] [id number] Univers 20:00:00 20:00:00 WILMAR MADISON itnorris [facility] 2022-03-14 2022-03-14 Laboratory Only, Adc Test [facility] 1.2.840. 114 [id number] Univers 15:30:00 15:45:00 Only RafyLester brandmaricarmen MARTINES 350.1.13. 10 ity of [place] [id number] [facility] 353 Branch 2022-03-14 2022-03-14 Outpatient R [facility] [id number] Univers 15:30:00 15:30:00 [id number] ity of [facility] 2022-03-14 2022-03-14 Outpatient R WILMAR MADISON [facility] [id number] Univers 15:30:00 15:30:00 LESTER MADISONALAjit [facility] 2022-03-14 2022-03-14 Orders Doctor LOIDA 1.2.840.114 [id number] Univers 00:00:00 00:00:00 Only Unassigned, BETH 350.1.13.10 [place] [facility] 4.2.7.2.686 José Miguel as [id number] [facility] 009 Branch 2022-02-25 2022-02-26 Outpatient X ABU [facility] [id number] Univers 18:18:00 12:30:00 ATHERAH, ity o f MILAGROSAMINA [facility] 2022-02-25 2022-02-26 Emergency Sobeida Samson [facility] 1.2.8 40.114 [id number] Univers 18:18:00 12:30:00 Abu Anaya Olivarez [facility] 350.1.13.10 [place] [id number] [facility] 110 Branch ([facility]) 2022-02-22 2022-02-23 Emergency X SETH, [facility] ERT [id number] Univers 21:42:00 01:19:00 BRO haywood [facility] 2022-02-22 2022-02-23 Emergency Seth, [facility] 1.2.840.114 [id number] Univers 21:42:00 01:19:00 Bro MARTINES 350.1.13.10 i ty [facility] 4.2.7.2.686 [facility] [id number] [address] 2022-01-29 2022-01-29 Emergency X JADEN RENE [facility] ERT [id number] Univers 14:38:00 16:55:00 JADEN RENE norris [facility] 2022-01-29 2022-01-29 Emergency [facility] 1..174.968 [id number] Univers 14:38:00 16:55:00 [facility] 350.1.13.10 it y of [place] 4.2.7.2.686 [facility] [id number] [address] ([facility]) 2022-01-29 2022-01-29 Emergency X [facility]IGUEL [facility] [id number] Univers 07:51:00 10:37:00 MAI norris [facility] 2022-01-29 2022-01-29 Emergency Miguel [facility] 1.2.840.114 [id number] Univers 07:51:00 10:37:00 Mai MATRINES 350.1.13.10 ity [facility] 4.2.7.2.686 [facility] [id number] [address] 2022-01-05 2022-01-05 Outpatient C RAKESH, [facility] WWACU [id number] 10:46:00 14:42:00 [facility] 2022-01-02 2022-01-03 Emergency X WILMER [facility] ERT [id number] Univers 21:43:00 00:14:00 JACKLYN haywood [facility] 2022-01-02 2022-01-03 Emergency [facility] 1.2.129.223 [id number] Univers 21:43:00 00:14:00 Jacklyn MARTINES 350.1.13.10 ity of [place] [id number] [facility] 084 Branch 2021-12-08 2021-12-08 Transition SABINA Heatr 1.2.840.114 [id number] Univers 00:00:00 00:00:00 of Care Marjan DOHERTY 350.1.13.10 i ty of [place] [id number] [facility] 403 Branch 2021-12-05 2021-12-07 Inpatient X MARY [facility] ERIN [id number] Univers 17:33:00 12:01:00 ADNAN ity of [facility] 2021-12-05 2021-12-07 [facility] Christos Tovar [facility] 1.2.840.1 14 [id number] Univers 17:33:00 12:01:00 Encounter ValentinegilesLynsey warereji Anjum MARTINES 350.1.13.1 0 ity of [place] 4.2.7.2.686 [facility] [id number] [facility] 080 Branch 2021-12-03 2021-12-05 Outpatient X MICHEL [facility] ERIN [id number] Univers 12:50:00 05:42:00 WILFRID ity of [facility] 2021-12-03 2021-12-05 [facility] Maury Brush [facility] 1.2.84 0.114 [id number] Univers 12:50:00 05:42:00 Encounter [facility] 350.1.13.10 [place] [id number] [facility] 113 Branch ([facility]) 2021-11-23 2021-11-23 Orders Doctor LOIDA 1.2.840.114 [id number] Univers 00:00:00 00:00:00 Only Unassigned, BETH 350.1.13.10 ity of [place] [facility] 4.2.7.2.686 José Miguel as [id number] [facility] 009 Branch 2021-11-09 2021-11-11 Outpatient X HARPALYOVANNY [facility] ERIN [id number] Univers 18:47:00 17:31:00 WILFRID ity of [facility] 2021-11-09 2021-11-11 Emergency Sobeida Samson [facility] 1.2.8 40.114 [id number] Univers 18:47:00 17:31:00 SebastiánhectorNancy bloody HEALTH 350.1.13.10 ity of [place] [id number] [facility] 116 Branch (CLC) 2021-11-07 2021-11-07 Orders Doctor LOIDA 1.2.840.114 [id number] Univers 00:00:00 00:00:00 Only Unassigned, BETH 350.1.13.10 ity [place] [facility] 4.2.7.2.686 José Miguel as [id number] [facility] 009 Branch 2021-11-03 2021-11-03 Orders Doctor MARISCAL 1.2.840.114 [id number] Univers 00:00:00 00:00:00 Only Unassigned, BETH 350.1.13.10 it[place] of [place] [facility] 4.2.7.2.686 José Miguel as [id number] [facility] 009 Branch 2021-10-25 2021-10-25 Transition SABINA Waters 1.2.840.114 [id number] Univers 00:00:00 00:00:00 of Care Any DOHERTY 350.1.13.10 i ty of [place] [id number] [facility] 403 Branch 2021-10-15 2021-10-24 Inpatient U REHANA [facility] ERIN [id number] Univers 00:23:00 17:53:00 FLASH haywood of [facility] 2021-10-15 2021-10-24 [facility] Blanca Talavera [facility] 1.2.840.114 [id number] Univers 00:23:00 17:53:00 Encounter Samir Galindo HEALTH 350.1.13.10 ity of [place] 4.2.7.2.686 [place] Flash Kimball [id number] [facility] 113 Branch ([facility]) 2021-10-21 2021-10-21 Surgery Abu [facility] 1.2.840.114 [id number] Univers 10:00:00 10:45:00 Atherah, HEALTH 350.1.13.10 i ty of [place] 4.2.7.2.686 Sandi JONES [id number] [facility] 020 Branch ([facility]) 2021-06-09 2021-06-09 Orders Doctor LOIDA 1.2.840.114 [id number] Univers 00:00:00 00:00:00 Only Unassigned, BETH 350.1.13.10 [place]y [place] [facility] 4.2.7.2.686 José Miguel as [id number] [facility] 009 Branch 2012-11-25 2012-11-25 Outpatient AMOR SHAIKH [facility] 20 [id number] Univers 00:00:00 16:37:20 AMOR SHAIKH 3 i ty of [facility] 2012-11-25 2012-11-25 Outpatient AMOR SHAIKH [facility] [id number] Univers 00:00:00 00:00:00 AMOR SHAIKH [id number] i ty of [facility] 2012-04-09 2012-04-09 Outpatient [facility] [id number] Univers 00:00:00 00:00:00 [id number] ity of [facility] 2012-04-08 2012-04-08 Outpatient [facility] [id number] Univers 00:00:00 16:51:12 1 ity of [facility] 2012-01-11 2012-01-11 Outpatient [facility] [id number] Univers 00:00:00 00:00:00 [id number] ity of [facility] 2011-10-12 2011-10-12 Outpatient [facility] [id number] Univers 00:00:00 00:00:00 [id number] ity of [facility] 2011-04-13 2011-04-13 Outpatient [facility] [id number] Univers 00:00:00 10:43:11 1 ity [facility] 2011-03-16 2011-03-16 Outpatient [facility] [id number] Univers 00:00:00 00:00:00 [id number] ity of [facility] 2010-09-15 2010-09-15 Outpatient [facility] [id number] Univers 00:00:00 11:23:44 5 [facility] 2010-06-13 2010-06-13 Outpatient [facility] [id number] Univers 00:00:00 00:00:00 [id number] [facility] 2010-06-09 2010-06-09 Outpatient [facility] [id number] Univers 00:00:00 00:00:00 [id number] [facility] 2010-03-11 2010-03-11 Outpatient [facility] [id number] Univers 00:00:00 16:25:54 5 [facility] 2009-09-13 2009-09-13 Outpatient [facility] [id number] Univers 00:00:00 16:22:48 1 [facility] 2009-08-31 2009-08-31 Outpatient [facility] [id number] Univers 00:00:00 09:36:31 1 [facility] Results Test Description Test Time Test Comments Results Result Sourc e Comments C-ARM<1 HR W 2022-05-12 IMAGES*WW* 08:26:58 [facility] : 1970 Sex: F Cl inical history: Surgical procedure.Location: D4.FINDINGS: 2 spot fluoroscopic intraoperative images are submitted. The images show needle placement along the lateral aspects of the cervical spine related to medial branch block. Please refer to the operative report. A total of 10.9 seconds fluoroscopy time is utilized. Cumulative dose equals 0.66 mGy.IMPRESSION:1. Intraoperative fluoroscopy.Karyni boni signed by: Alexey Ott MD 05/12/2022 8:26 AM CDT URINE MONOCLONAL *WW* 2022-05-11 12:51:00 Test Item Value Reference Range Interpretation Comme nts PREG UR (test code = PGU) NEGATIVE NEGATIVE C-ARM<1 HR W IMAGES*WW*2022-04-06 16:03:45 [facility] 1970 Sex: FFluoroscopyLocation Code: C3HWOAMHAL HISTORY: Neck painComments: Fluoroscopy was provided during bilateral medial branch block. Approximately fluoroscopy time was 5.0 seconds. 2 fluoroscopic spot images were taken.IMPRESSION: Fluoroscopy services provided. Please see operative report for full details.Electronically signed by: Iglesia Garvey MD 04/06/2022 4:03 PM CDT [id number] URINE MONOCLONAL *WW*2022-04-06 12:39:00 Test Item Value Reference Range Interpretation Comments PREG UR (test code = PGU) NEGATIVE NEGATIVE Basic Metabolic Panel (NA, K, CL, CO2, GLUCOSE, BUN, CREATININE, CA)2022-02-26 09:48:31 Test Item Value Reference Range Interpretation Comments NA (test code = 143 mmol/L 135-145 2888736137) K (test code = 3.5 mmol/L 3.5-5.0 5693998541) CL (test code = 114 mmol/L 98-108 H 0035245620) CO2 TOTAL (test code = 24 mmol/L 23-31 4710122393) AGAP (test code = 2-16 0041332039) BUN (test code = 9 mg/dL 7-23 7581987634) GLUCOSE (test code = 96 mg/dL 70-110 2621144841) CREATININE (test code = 0.92 mg/dL 0.50-1.04 9376994474) CALCIUM (test code = 8.1 mg/dL 8.6-10.6 L 9695722665) eGFR (test code = mL/min/1.73m2 6728390825) LUCILLE (test code = LUCILLE) Association of [...] tests). Lab Interpretation Abnormal (test code = 54628-5) [facility] with [id number] 09:36:32 Test Item Value Reference Range Interpretation Comments WBC (test code = See_Comment [Automated 0312-2) message] The sy stem which generated this result transmitted reference range : 4.30 - 11.10 10*3/?L. The reference range was not used to interpret this result as normal/abnormal . RBC (test code = See_Comment [Automated 562-8) message] The sy stem which generated this [...] RDW-SD (test code = 46.8 fL 39.0-49.9 31620-6) RDW-CV (test code = 16.7 % 12.0-15.5 H 788-0) PLT (test code = See_Comment [Automated 777-3) message] The sy stem which generated this result transmitted reference range : 166 - 358 10*3/ ?L. The reference r nicholas was not used to interpret this result as normal/abnormal . MPV (test code = 10.8 fL 9.5-12.9 07903-8) NRBC/100 WBC (test See_Comment [Automat ed code = 1672609584) message] The system which generated this result transmitted reference range : 0.0 - 10.0 /100 WBCs. The refer ence range was not u sed to interpret th is result as normal/abnormal . NRBC x10^3 (test code <0.01 See_Comment [Auto mated = 2280661832) message] The s ystem which generated this result transmitted reference range : 10*3/?L. The reference range was not used to interpret this result as normal/abnormal . GRAN MAT (NEUT) % 54.4 % (test code = 770-8) IMM GRAN % (test code 0.20 % = 7827065150) LYMPH % (test code = 31.5 % 736-9) MONO % (test code = 8.7 % 5905-5) EOS % (test code = 3.2 % 713-8) BASO % (test code = 2.0 % 706-2) GRAN MAT x10^3(ANC) 2.69 10*3/uL 1.88-7.09 (test code = 1125569937) IMM GRAN x10^3 (test <0.03 0.00-0.06 code = 7902918125) LYMPH x10^3 (test code 1.56 10*3/uL 1.32-3.29 = 731-0) MONO x10^3 (test code 0.43 10*3/uL 0.33-0.92 = 742-7) EOS x10^3 (test code = 0.16 10*3/uL 0.03-0.39 711-2) BASO x10^3 (test code 0.10 10*3/uL 0.01-0.07 H = 704-7) Lab Interpretation Abnormal (test code = 03194-5) [id number]15 Test Item Value Reference Interpretation Comments Range TROPONIN I (test 0.004 ng/mL See_Comment [Automated code = 9350813860) message] The system which generated this result [...] biotin. Lab Interpretation Normal (test code = 10090-3) [facility] [id number] 04:00:15 Test Item Value Reference Range Interpretation Comments NT-proBNP (test code 42 pg/mL See_Comment [Autom ated = 4890803549) message] The system which generated this result transmitted reference range : <=125. The reference range was not used to interpret this result as normal/abnormal . LUCILLE (test code = LUCILLE) Biotin has been reported to cause a negative bias, interpret results relative to patient's use of biotin. Lab Interpretation Normal (test code = 11312-6) [facility]. METABOLIC PANEL (78121)2022-02-26 03:48:34 Test Item Value Reference Range Interpretation Comments NA (test code = 142 mmol/L 135-145 1001615961) K (test code = 3.6 mmol/L 3.5-5.0 Slight 8085618336) hemolysis CL (test code = 109 mmol/L 98-108 H 6219133490) CO2 TOTAL (test code 26 mmol/L 23-31 = 4546359586) AGAP (test code = 2-16 5500814409) BUN (test code = 10 mg/dL 7-23 Slight 9907869246) hemolysis GLUCOSE (test code = 84 mg/dL 70-110 4703974323) CREATININE (test code 0.99 mg/dL 0.50-1.04 = 4843934631) TOTAL BILI (test code 0.4 mg/dL 0.1-1.1 = 7324181156) CALCIUM (test code = 8.9 mg/dL 8.6-10.6 1176879045) T PROTEIN (test code 6.5 g/dL 6.3-8.2 = 8135333984) ALBUMIN (test code = 4.0 g/dL 3.5-5.0 9804892235) ALK PHOS (test code = 71 U/L 34-122 Slight 6415051993) hemolysis ALTv (test code = 18 U/L 5-35 1742-6) AST(SGOT) (test code 25 U/L 13-40 Slight = 9349681375) hemolysis eGFR (test code = mL/min/1.73m2 5362734411) LUCILLE (test code = LUCILLE) Association of [...] tests). Lab Interpretation Abnormal (test code = 28449-4) [facility] 03:48:34 Test Item Value Reference Range Interpretation Comments LIPASE (test code = 7375219382) 166 U/L 0-220 Lab Interpretation (test code = Normal 70746-7) [facility] WITH [id number] 03:34:33 Test Item Value Reference Range Interpretation Comments WBC (test code = See_Comment [Automated 5588-2) message] The sy stem which generated this result transmitted reference range : 4.30 - 11.10 10*3/?L. The reference range was not used to interpret this result as normal/abnormal . RBC (test code = See_Comment [Automated 364-8) message] The sy stem which generated this [...] RDW-SD (test code = 47.2 fL 39.0-49.9 94326-9) RDW-CV (test code = 16.8 % 12.0-15.5 H 788-0) PLT (test code = See_Comment [Automated 777-3) message] The sy stem which generated this result transmitted reference range : 166 - 358 10*3/ ?L. The reference r nicholas was not used to interpret this result as normal/abnormal . MPV (test code = 10.3 fL 9.5-12.9 92478-8) NRBC/100 WBC (test See_Comment [Automat ed code = 5588450606) message] The system which generated this result transmitted reference range : 0.0 - 10.0 /100 WBCs. The refer ence range was not u sed to interpret th is result as normal/abnormal . NRBC x10^3 (test code <0.01 See_Comment [Auto mated = 5457713547) message] The s ystem which generated this result transmitted reference range : 10*3/?L. The reference range was not used to interpret this result as normal/abnormal . GRAN MAT (NEUT) % 51.0 % (test code = 770-8) IMM GRAN % (test code 0.20 % = 8565073819) LYMPH % (test code = 31.6 % 736-9) MONO % (test code = 10.7 % 5905-5) EOS % (test code = 4.3 % 713-8) BASO % (test code = 2.2 % 706-2) GRAN MAT x10^3(ANC) 2.59 10*3/uL 1.88-7.09 (test code = [id number]) IMM GRAN x10^3 (test <0.03 0.00-0.06 code = [id number]) LYMPH x10^3 (test code 1.60 10*3/uL 1.32-3.29 = 731-0) MONO x10^3 (test code 0.54 10*3/uL 0.33-0.92 = 742-7) EOS x10^3 (test code = 0.22 10*3/uL 0.03-0.39 711-2) BASO x10^3 (test code 0.11 10*3/uL 0.01-0.07 H = 704-7) Lab Interpretation Abnormal (test code = 59569-0) [facility] [id number] 06:03:26 Test Item Value Reference Interpretation Comments Range TROPONIN I (test 0.003 ng/mL See_Comment [Automated code = 9696019216) message] The system which generated this result [...] biotin. Lab Interpretation Normal (test code = 41314-3) [facility] [id number] 03:56:22 Test Item Value Reference Interpretation Comments Range TROPONIN I (test 0.003 ng/mL See_Comment [Automated code = 4017405848) message] The system which generated this result [...] biotin. Lab Interpretation Normal (test code = 43948-7) [id number] 03:53:00 Test Item Value Reference Range Interpretation Comments NT-proBNP (test code 143 pg/mL See_Comment H [Autom ated = 4219113035) message] The system which generated this result transmitted reference range : <=125. The reference range was not used to interpret this result as normal/abnormal . LUCILLE (test code = LUCILLE) Biotin has been reported to cause a negative bias, interpret results relative to patient's use of biotin. Lab Interpretation Abnormal (test code = 11615-2) [facility] ([id number])2022-02-23 03:45:59 Test Item Value Reference Range Interpretation Comments NA (test code = 140 mmol/L 135-145 3091585869) K (test code = 4.0 mmol/L 3.5-5.0 0371386934) CL (test code = 110 mmol/L 98-108 H 3378048789) CO2 TOTAL (test code = 17 mmol/L 23-31 L 0534691851) AGAP (test code = 2-16 2479714670) BUN (test code = 14 mg/dL 7-23 0316281480) GLUCOSE (test code = 105 mg/dL 70-110 0985287261) CREATININE (test code = 1.03 mg/dL 0.50-1.04 4292153088) TOTAL BILI (test code = 0.3 mg/dL 0.1-1.6 0229107249) CALCIUM (test code = 8.9 mg/dL 8.6-10.6 8407150888) T PROTEIN (test code = 6.1 g/dL 6.3-8.2 L 4163618392) ALBUMIN (test code = 3.8 g/dL 3.5-5.0 2859224550) ALK PHOS (test code = 91 U/L 34-122 5683086824) ALTv (test code = 19 U/L 5-35 1742-6) AST(SGOT) (test code = 21 U/L 13-40 3576634724) eGFR (test code = mL/min/1.73m2 3766938350) LUCILLE (test code = LUCILLE) Association of [...] tests). Lab Interpretation Abnormal (test code = 26389-1) [facility] WITH [id number] 03:23:19 Test Item Value Reference Range Interpretation Comments WBC (test code = See_Comment [Automated 2397-2) message] The sy stem which generated this result transmitted reference range : 4.30 - 11.10 10*3/?L. The reference range was not used to interpret this result as normal/abnormal . RBC (test code = See_Comment [Automated 024-8) message] The sy stem which generated this [...] RDW-SD (test code = 45.7 fL 39.0-49.9 47415-9) RDW-CV (test code = 16.6 % 12.0-15.5 H 788-0) PLT (test code = See_Comment [Automated 777-3) message] The sy stem which generated this result transmitted reference range : 166 - 358 10*3/ ?L. The reference r nicholas was not used to interpret this result as normal/abnormal . MPV (test code = 10.9 fL 9.5-12.9 15779-6) NRBC/100 WBC (test See_Comment [Automat ed code = 9459684465) message] The system which generated this result transmitted reference range : 0.0 - 10.0 /100 WBCs. The refer ence range was not u sed to interpret th is result as normal/abnormal . NRBC x10^3 (test code <0.01 See_Comment [Auto mated = 5377875262) message] The s ystem which generated this result transmitted reference range : 10*3/?L. The reference range was not used to interpret this result as normal/abnormal . GRAN MAT (NEUT) % 53.8 % (test code = 770-8) IMM GRAN % (test code 0.20 % = 1260569974) LYMPH % (test code = 34.0 % 736-9) MONO % (test code = 7.9 % 5905-5) EOS % (test code = 2.6 % 713-8) BASO % (test code = 1.5 % 706-2) GRAN MAT x10^3(ANC) 3.25 10*3/uL 1.88-7.09 (test code = 4371172215) IMM GRAN x10^3 (test <0.03 0.00-0.06 code = 3963048581) LYMPH x10^3 (test code 2.06 10*3/uL 1.32-3.29 = 731-0) MONO x10^3 (test code 0.48 10*3/uL 0.33-0.92 = 742-7) EOS x10^3 (test code = 0.16 10*3/uL 0.03-0.39 711-2) BASO x10^3 (test code 0.09 10*3/uL 0.01-0.07 H = 704-7) Lab Interpretation Abnormal (test code = 91437-9) [facility] 09:21:37 Test Item Value Reference Range Interpretation Comments PROGESTERONE (test TEST NOT SEE BELOW TESTING CANNOT BE code = 8680) PERFORMED NG/ML PERFORMED DU E TO AN INTERFERING SUBSTANCE. LB GES DELETED. EXPECTED VALUES FOR PROGESTERONE MALE . . . . . . . . . . . . . . . . NG/ML <0.20 FEM SYED FOLLICULAR PHAS E . . . . . . . . . N G/ML <0.90 OVULATION . . . . . . . . . . . . NG/ML <12.00 L UTEAL PHASE . . . . . . . . . . . NG/ML 1.83-23.90 POSTMENOPAUSAL . . . . . . . . . . N G/ML <0.20 1ST TRIME STER. . . . . . . . . . . NG/ML 11.00-44. 30 2ND TRIMESTER. . . . . . . . . . . N G/ML 25.40-83.30 3RD TRIMESTER. . . . . . . . . . . NG/ML 58.70-214.00 TSH, THIRD [id number] 09:21:37 Test Item Value Reference Range Interpretation Comments TSH, THIRD TEST NOT 0.400-4.100 TESTING CANNOT BE GENERATION (test PERFORMED UIU/ML PERFORM ED DUE TO AN code = 2821) INTERFERING SUBSTANCE. LB GES DELETED. [id number] 09:21:37 Test Item Value Reference Range Interpretation Comments ESTRADIOL (test TEST NOT SEE BELOW TESTING CAN NOT BE code = 7405) PERFORMED PG/ML PERFORMED DU E TO AN INTERFERING SUBSTANCE. LB GES DELETED. UNLESS OTHERWISE INDIC ATED, ALL TESTING PERFORMED [facility], [place] [address] [place] [address] [facility] DIRECTOR: SADIQ VANEGAS M.D. CLIA NUMBER [id number] [place] [id number] COMPREHENSIVE METABOLIC [id number] 09:21:22 Test Item Value Reference Range Interpretation Comments GLUCOSE (test code TEST NOT 70-99 TESTING CANNOT BE = 2216) PERFORMED MG/DL PERFORMED DU E TO AN INTERFERING SUBSTANCE. LB GES DELETED. BUN (test code = TEST NOT 02-20) PERFORMED MG/DL CREATININE (test TEST NOT 0.60-1.30 code = 2213) PERFORMED MG/DL eGFR (2020 CKD-EPI) TEST NOT >60 (test code = ) PERFORMED ML/MIN/1.73 CALC BUN/CREAT TEST NOT 02-28 (test code = 2234) PERFORMED RATIO SODIUM (test code = TEST NOT 522-836 7220) PERFORMED MEQ/L POTASSIUM (test TEST NOT 3.5-5.4 code = 2227) PERFORMED MEQ/L CHLORIDE (test code TEST NOT 95-107 = 2214) PERFORMED MEQ/L CARBON DIOXIDE TEST NOT -31 (test code = 2205) PERFORMED MEQ/L CALCIUM [...] 2203) AST (test code = TEST NOT 940 2217) PERFORMED U/L ALT (test code = TEST NOT 40 2218) PERFORMED U/L [id number] 00:00:00 Test Item Value Reference Range Interpretation Comments TSH, THIRD GENERATION TEST NOT PERFORMED (test code = 2821) UIU/ML [id number] 00:00:00 Test Item Value Reference Range Interpretation Comments TSH, THIRD GENERATION TEST NOT PERFORMED (test code = 2821) UIU/ML [id number] 00:00:00 Test Item Value Reference Range Interpretation Comments TSH, THIRD GENERATION TEST NOT PERFORMED (test code = 282) UIU/ML COMPREHENSIVE METABOLIC [id number] 00:00:00 Test Item Value Reference Range Interpretation Comments GLUCOSE (test code = TEST NOT PERFORMED 2216) MG/DL BUN (test code = 2207) TEST NOT PERFORMED MG/DL CREATININE (test code = TEST NOT PERFORMED 2213) MG/DL eGFR (2020 CKD-EPI) TEST NOT PERFORMED (test code = 61266) ML/MIN/1.73 CALC BUN/CREAT (test TEST NOT PERFORMED code = 2234) RATIO SODIUM (test code = TEST NOT PERFORMED 2230) MEQ/L POTASSIUM (test code = TEST NOT PERFORMED 2227) MEQ/L CHLORIDE (test code = TEST NOT PERFORMED 2214) MEQ/L CARBON DIOXIDE (test TEST NOT PERFORMED code = 2205) MEQ/L CALCIUM (test code = TEST NOT PERFORMED 2208) MG/DL PROTEIN, TOTAL (test TEST NOT PERFORMED code = 2228) G/DL ALBUMIN (test code = TEST NOT PERFORMED 2200) G/DL CALC GLOBULIN (test code TEST NOT PERFORMED = 2240) G/DL CALC A/G RATIO (test TEST NOT PERFORMED code = 2234) RATIO BILIRUBIN, TOTAL (test TEST NOT PERFORMED code = 2206) MG/DL ALKALINE PHOSPHATASE TEST NOT PERFORMED (test code = 2203) U/L AST (test code = 221) TEST NOT PERFORMED U/L ALT (test code = 221) TEST NOT PERFORMED U/L COMPREHENSIVE METABOLIC [id number] 00:00:00 Test Item Value Reference Range Interpretation Comments GLUCOSE (test code = TEST NOT PERFORMED 2216) MG/DL BUN (test code = 2207) TEST NOT PERFORMED MG/DL CREATININE (test code = TEST NOT PERFORMED 2213) MG/DL eGFR (2020 CKD-EPI) TEST NOT PERFORMED (test code = 67272) ML/MIN/1.73 CALC BUN/CREAT (test TEST NOT PERFORMED code = 2234) RATIO SODIUM (test code = TEST NOT PERFORMED 2230) MEQ/L POTASSIUM (test code = TEST NOT PERFORMED 2227) MEQ/L CHLORIDE (test code = TEST NOT PERFORMED 2214) MEQ/L CARBON DIOXIDE (test TEST NOT PERFORMED code = 2205) MEQ/L CALCIUM (test code = TEST NOT PERFORMED 2208) MG/DL PROTEIN, TOTAL (test TEST NOT PERFORMED code = 2228) G/DL ALBUMIN (test code = TEST NOT PERFORMED 2200) G/DL CALC GLOBULIN (test code TEST NOT PERFORMED = 2240) G/DL CALC A/G RATIO (test TEST NOT PERFORMED code = 2234) RATIO BILIRUBIN, TOTAL (test TEST NOT PERFORMED code = 2206) MG/DL ALKALINE PHOSPHATASE TEST NOT PERFORMED (test code = 2203) U/L AST (test code = 2217) TEST NOT PERFORMED U/L ALT (test code = 2218) TEST NOT PERFORMED U/L [id number] 00:00:00 Test Item Value Reference Range Interpretation Comments PROGESTERONE (test code TEST NOT PERFORMED = 2790) NG/ML [id number] 00:00:00 Test Item Value Reference Range Interpretation Comments PROGESTERONE (test code TEST NOT PERFORMED = 2790) NG/ML [id number] 00:00:00 Test Item Value Reference Range Interpretation Comments ESTRADIOL (test code = TEST NOT PERFORMED 2505) PG/ML [id number] 00:00:00 Test Item Value Reference Range Interpretation Comments ESTRADIOL (test code = TEST NOT PERFORMED 2505) PG/ML [id number] 00:00:00 Test Item Value Reference Range Interpretation Comments ESTRADIOL (test code = TEST NOT PERFORMED 2505) PG/ML TROPONIN [id number] 14:05:29 Test Item Value Reference Interpretation Comments Range TROPONIN I (test <0.012 See_Comment [Automated code = 6384210096) message] The system which generated this result [...] biotin. Lab Interpretation Normal (test code = 08701-8) [facility] [id number] 14:02:07 Test Item Value Reference Range Interpretation Comments NT-proBNP (test code 343 pg/mL See_Comment H [Autom ated = 6293192217) message] The system which generated this result transmitted reference range : <=125. The reference range was not used to interpret this result as normal/abnormal . LUCILLE (test code = LUCILLE) Biotin has been reported to cause a negative bias, interpret results relative to patient's use of biotin. Lab Interpretation Abnormal (test code = 82149-0) [facility] ([id number])2022-01-29 13:53:30 Test Item Value Reference Range Interpretation Comments NA (test code = 146 mmol/L 135-145 H 0469233910) K (test code = 4.2 mmol/L 3.5-5.0 6280954866) CL (test code = 114 mmol/L 98-108 H 9406300647) CO2 TOTAL (test code = 23 mmol/L 23-31 0152954696) AGAP (test code = 2-16 5035124291) BUN (test code = 14 mg/dL 7-23 1400514857) GLUCOSE (test code = 72 mg/dL 70-110 6357871524) CREATININE (test code = 1.08 mg/dL 0.50-1.04 H 5609558794) TOTAL BILI (test code = 0.3 mg/dL 0.1-1.1 2551844514) CALCIUM (test code = 9.1 mg/dL 8.6-10.6 1681508669) T PROTEIN (test code = 6.1 g/dL 6.3-8.2 L 3114677463) ALBUMIN (test code = 3.8 g/dL 3.5-5.0 8967362423) ALK PHOS (test code = 86 U/L 34-122 1997347288) ALTv (test code = 26 U/L 5-35 1742-6) AST(SGOT) (test code = 28 U/L 13-40 7442819427) eGFR (test code = mL/min/1.73m2 3860850722) LUCILLE (test code = LUCILLE) Association of [...] tests). Lab Interpretation Abnormal (test code = 60911-7) [facility] + LACTIC [id number] 13:52:59 Test Item Value Reference Range Interpretation Comments PH (test code = 7.32-7.42 0520300908) PCO2 WYATT (test code = See_Comment [Auto mated 8463324492) message] The sy stem which generated this result transmitted reference range : 41 - 51 mmHg. The reference range was not used to interpret this result as normal/abnormal . PO2 WYATT (test code = See_Comment L [Autom ated 9557062513) message] The sy stem which generated this result transmitted reference range : 25 - 40 mmHg. The reference range was not used to interpret this result as normal/abnormal . HCO3 WYATT (test code = See_Comment [Auto mated 6567291212) message] The sy stem which generated this result transmitted reference range : 24 - 28 mEq/L. The reference range was not used to interpret this result as normal/abnormal . AC VBE(BEAKER) (test mEq/L code = 1756539141) THB WYATT (test code = 11.4 g/dL 12.0-16.0 L 1542209808) %O2HB WYATT (test code = 21.7 % 52.0-63.0 L 1026650509) %COHB WYATT (test code = 0.3 % 0.0-1.5 2795239329) %METHB WYATT (test code = 1.1 % 0.4-1.5 6580900550) VOL%O2 WYATT (test code = 3.5 % 6.0-12.0 L 2096736232) NA (test code = 145 mmol/L 135-145 0441041322) K+ (test code = 4.0 mmol/L 3.5-5.0 1017140123) AC CA IONZ (test code = 5.00 mg/dL 4.50-5.30 2801655487) GLUCOSE (test code = 70 mg/dL 70-110 8702315681) LACTIC ACID (test code 2.81 mmol/L 0.50-2.20 H = 5568032429) Lab Interpretation Abnormal (test code = 35683-5) [facility] WITH [id number] 13:41:47 Test Item Value Reference Range Interpretation Comments WBC (test code = See_Comment [Automated 7627-2) message] The sy stem which generated this result transmitted reference range : 4.30 - 11.10 10*3/?L. The reference range was not used to interpret this result as normal/abnormal . RBC (test code = See_Comment [Automated 374-2) message] The sy stem which generated this [...] RDW-SD (test code = 47.6 fL 39.0-49.9 39257-3) RDW-CV (test code = 15.9 % 12.0-15.5 H 788-0) PLT (test code = See_Comment [Automated 777-3) message] The sy stem which generated this result transmitted reference range : 166 - 358 10*3/ ?L. The reference r nicholas was not used to interpret this result as normal/abnormal . MPV (test code = 10.9 fL 9.5-12.9 58675-0) NRBC/100 WBC (test See_Comment [Automat ed code = 6996673890) message] The system which generated this result transmitted reference range : 0.0 - 10.0 /100 WBCs. The refer ence range was not u sed to interpret th is result as normal/abnormal . NRBC x10^3 (test code <0.01 See_Comment [Auto mated = 7293047119) message] The s ystem which generated this result transmitted reference range : 10*3/?L. The reference range was not used to interpret this result as normal/abnormal . GRAN MAT (NEUT) % 80.7 % (test code = 770-8) IMM GRAN % (test code 0.30 % = 3584256428) LYMPH % (test code = 12.4 % 736-9) MONO % (test code = 4.9 % 5905-5) EOS % (test code = 0.9 % 713-8) BASO % (test code = 0.8 % 706-2) GRAN MAT x10^3(ANC) 6.92 10*3/uL 1.88-7.09 (test code = 7878663538) IMM GRAN x10^3 (test 0.03 10*3/uL 0.00-0.06 code = 6209097806) LYMPH x10^3 (test code 1.06 10*3/uL 1.32-3.29 L = 731-0) MONO x10^3 (test code 0.42 10*3/uL 0.33-0.92 = 742-7) EOS x10^3 (test code = 0.08 10*3/uL 0.03-0.39 711-2) BASO x10^3 (test code 0.07 10*3/uL 0.01-0.07 = 704-7) Lab Interpretation Abnormal (test code = 85629-3) [facility] W/AUTO DIFF WITH [id number] 05:43:21 Test Item Value Reference Range Interpretation [...] = 1036) NUCLEATED RBCS (test 0.0 /100 WBC'S See_Comment [Aut omated code = 1065) message] The sy stem which generated this [...] RBCS 0.00 K/UL 0.00-0.11 (test code = 27911) HEMOGLOBIN [id number] 05:31:32 Test Item Value Reference Range Interpretation Comments HEMOGLOBIN A1c (test code = 41683) 6.4 % 4.2-5.6 H CBC W/AUTO [id number] 00:00:00 Test Item Value Reference Range Interpretation Comments WBC (test code = 1001) 5.7 K/UL RBC (test code = 1002) 4.32 M/UL HEMOGLOBIN (test code = 1003) 11.1 G/DL HEMATOCRIT (test code = 1004) 35.0 % MCV (test code = 1005) 81.0 fL MCH (test code = 1006) 25.7 PG MCHC (test code = 1007) 31.7 G/DL RDW (test code = 1038) 15.3 % NEUTROPHILS (test code = 1008) 71.7 % LYMPHOCYTES (test code = 1010) 21.2 % MONOCYTES (test code = 1011) 5.2 % EOSINOPHILS (test code = 1012) 0.5 % BASOPHILS (test code = 1013) 1.2 % IMMATURE GRANULOCYTES (test 0.2 % code = 1036) NUCLEATED RBCS (test code = 0.0 /100WBC'S 1065) PLATELET COUNT (test code = 277 K/UL 1015) ABSOLUTE NEUTROPHILS (test code 4.10 K/UL = 1066) ABSOLUTE LYMPHOCYTES (test code 1.21 K/UL = 1067) ABSOLUTE MONOCYTES (test code = 0.30 K/UL 1068) ABSOLUTE EOSINOPHILS (test code 0.03 K/UL = 1040) ABSOLUTE BASOPHILS (test code = 0.07 K/UL 1069) ABS IMMATURE GRANULOCYTES (test 0.01 K/UL code = 1020) ABS NUCLEATED RBCS (test code = 0.00 K/UL 42231) CBC W/AUTO [id number] 00:00:00 Test Item Value Reference Range Interpretation Comments WBC (test code = 1001) 5.7 K/UL RBC (test code = 1002) 4.32 M/UL HEMOGLOBIN (test code = 1003) 11.1 G/DL HEMATOCRIT (test code = 1004) 35.0 % MCV (test code = 1005) 81.0 fL MCH (test code = 1006) 25.7 PG MCHC (test code = 1007) 31.7 G/DL RDW (test code = 1038) 15.3 % NEUTROPHILS (test code = 1008) 71.7 % LYMPHOCYTES (test code = 1010) 21.2 % MONOCYTES (test code = 1011) 5.2 % EOSINOPHILS (test code = 1012) 0.5 % BASOPHILS (test code = 1013) 1.2 % IMMATURE GRANULOCYTES (test 0.2 % code = 1036) NUCLEATED RBCS (test code = 0.0 /100WBC'S 1065) PLATELET COUNT (test code = 277 K/UL 1015) ABSOLUTE NEUTROPHILS (test code 4.10 K/UL = 1066) ABSOLUTE LYMPHOCYTES (test code 1.21 K/UL = 1067) ABSOLUTE MONOCYTES (test code = 0.30 K/UL 1068) ABSOLUTE EOSINOPHILS (test code 0.03 K/UL = 1040) ABSOLUTE BASOPHILS (test code = 0.07 K/UL 1069) ABS IMMATURE GRANULOCYTES (test 0.01 K/UL code = 1020) ABS NUCLEATED RBCS (test code = 0.00 K/UL 38721) CBC W/AUTO [id number] 00:00:00 Test Item Value Reference Range Interpretation Comments WBC (test code = 1001) 5.7 K/UL RBC (test code = 1002) 4.32 M/UL HEMOGLOBIN (test code = 1003) 11.1 G/DL HEMATOCRIT (test code = 1004) 35.0 % MCV (test code = 1005) 81.0 fL MCH (test code = 1006) 25.7 PG MCHC (test code = 1007) 31.7 G/DL RDW (test code = 1038) 15.3 % NEUTROPHILS (test code = 1008) 71.7 % LYMPHOCYTES (test code = 1010) 21.2 % MONOCYTES (test code = 1011) 5.2 % EOSINOPHILS (test code = 1012) 0.5 % BASOPHILS (test code = 1013) 1.2 % IMMATURE GRANULOCYTES (test 0.2 % code = 1036) NUCLEATED RBCS (test code = 0.0 /100WBC'S 1065) PLATELET COUNT (test code = 277 K/UL 1015) ABSOLUTE NEUTROPHILS (test code 4.10 K/UL = 1066) ABSOLUTE LYMPHOCYTES (test code 1.21 K/UL = 1067) ABSOLUTE MONOCYTES (test code = 0.30 K/UL 1068) ABSOLUTE EOSINOPHILS (test code 0.03 K/UL = 1040) ABSOLUTE BASOPHILS (test code = 0.07 K/UL 1069) ABS IMMATURE GRANULOCYTES (test 0.01 K/UL code = 1020) ABS NUCLEATED RBCS (test code = 0.00 K/UL 35916) HEMOGLOBIN [id number] 00:00:00 Test Item Value Reference Range Interpretation Comments HEMOGLOBIN A1c (test code = 38079) 6.4 % HEMOGLOBIN [id number] 00:00:00 Test Item Value Reference Range Interpretation Comments HEMOGLOBIN A1c (test code = 21084) 6.4 % HEMOGLOBIN [id number] 00:00:00 Test Item Value Reference Range Interpretation Comments HEMOGLOBIN A1c (test code = 14511) 6.4 % C-ARM<1 HR W IMAGES*WW*2022-01-05 15:46:44 [facility] : 1970 Sex: FFluoroscopyLocation Code: [id number] HISTORY: SURGICAL PROCEDURE , Back painComments: Fluoroscopy was provided duringsympathetic nerve block. Approximately fluoroscopy time was 32.6 seconds. 3 images were obtained.IMPRESSION: Fluoroscopy services provided. Please see operative report for full details.Electronically signed by: Gabriele Castaneda MD 01/05/2022 3:46 PM CDT [id number] URINE MONOCLONAL *WW*2022-01-05 11:24:00 Test Item Value Reference Range Interpretation Comments PREG UR (test code = PGU) NEGATIVE NEGATIVE CBC WITH [id number] 12:44:09 Test Item Value Reference Range Interpretation [...] RDW-SD (test code = 49.5 fL 39.0-49.9 57049-1) RDW-CV (test code = 15.5 % 12.0-15.5 788-0) PLT (test code = See_Comment H [Automated 777-3) message] The sy stem which generated this result transmitted reference range : 166 - 358 10*3/ ?L. The reference r nicholas was not used to interpret this result as normal/abnormal . MPV (test code = 10.3 fL 9.5-12.9 66046-5) NRBC/100 WBC (test See_Comment [Automat ed code = 7117364796) message] The system which generated this result transmitted reference range : 0.0 - 10.0 /100 WBCs. The refer ence range was not u sed to interpret th is result as normal/abnormal . NRBC x10^3 (test code See_Comment [Auto mated = 9264110036) message] The s ystem which generated this result transmitted reference range : 10*3/?L. The reference range was not used to interpret this result as normal/abnormal . GRAN MAT (NEUT) % 64.4 % (test code = 770-8) IMM GRAN % (test code 3.60 % = 3372517800) LYMPH % (test code = 23.5 % 736-9) MONO % (test code = 7.3 % 5905-5) EOS % (test code = 0.9 % 713-8) BASO % (test code = 0.3 % 706-2) GRAN MAT x10^3(ANC) 7.19 10*3/uL 1.88-7.09 H (test code = 2917734741) IMM GRAN x10^3 (test 0.40 10*3/uL 0.00-0.06 H code = 0227459322) LYMPH x10^3 (test code 2.63 10*3/uL 1.32-3.29 = 731-0) MONO x10^3 (test code 0.82 10*3/uL 0.33-0.92 = 742-7) EOS x10^3 (test code = 0.10 10*3/uL 0.03-0.39 711-2) BASO x10^3 (test code 0.03 10*3/uL 0.01-0.07 = 704-7) POLYCHROMASIA (test 2+ See_Comment [Automa britney code = 64696-2) message] The system which generated this result [...] . Lab Interpretation Abnormal (test code = 30386-2) [facility] [id number] 10:06:53 Test Item Value Reference Range Interpretation Comments NT-proBNP (test code 117 pg/mL See_Comment [Autom ated = 7931788101) message] The system which generated this result transmitted reference range : <=125. The reference range was not used to interpret this result as normal/abnormal . LUCILLE (test code = LUCILLE) Biotin has been reported to cause a negative bias, interpret results relative to patient's use of biotin. Lab Interpretation Normal (test code = 94169-2) [facility]. METABOLIC PANEL ([id number])2021-12-07 10:02:35 Test Item Value Reference Range Interpretation Comments NA (test code = 140 mmol/L 135-145 0993126854) K (test code = 3.7 mmol/L 3.5-5.0 4241541880) CL (test code = 104 mmol/L 98-108 0644593413) CO2 TOTAL (test code = 31 mmol/L 23-31 8794418030) AGAP (test code = 2-16 0947937432) BUN (test code = 21 mg/dL 7-23 3269082453) GLUCOSE (test code = 91 mg/dL 70-110 0616573909) CREATININE (test code = 1.00 mg/dL 0.50-1.04 8782957927) TOTAL BILI (test code = 0.3 mg/dL 0.1-1.6 9939804008) CALCIUM (test code = 8.1 mg/dL 8.6-10.6 L 9675361104) T PROTEIN (test code = 5.9 g/dL 6.3-8.2 L 8075097075) ALBUMIN (test code = 3.4 g/dL 3.5-5.0 L 0371999425) ALK PHOS (test code = 87 U/L 34-122 4678156823) ALTv (test code = 39 U/L 5-35 H 1742-6) AST(SGOT) (test code = 24 U/L 13-40 5758535836) eGFR (test code = mL/min/1.73m2 6090376963) LUCILLE (test code = LUCILLE) Association of [...] tests). Lab Interpretation Abnormal (test code = 82183-1) [facility]35 Test Item Value Reference Range Interpretation Comments MAGNESIUM (test code = 4676495312) 2.2 mg/dL 1.7-2.4 Lab Interpretation (test code = Normal 06118-1) [facility] [id number] 22:18:47 Test Item Value Reference Range Interpretation Comments VIT B12 (test code = 979 pg/mL 240-930 H [id number]) LUCILLE (test code = LUCILLE) Biotin has been reported to cause a positive bias, interpret results relative to patient's use of biotin. Lab Interpretation (test Abnormal code = 34090-1) [facility] 21:47:27 Test Item Value Reference Range Interpretation Comments Procalcitonin (test 0.05 ng/mL <0.07 code = [id number]) LUCILLE (test code = LUCILLE) INTERPRETATION OF [...] lung abscess/empyema. For further information please refer to:[email or web address] Lab Interpretation Normal (test code = 69993-9) [facility], [id number] 20:41:30 Test Item Value Reference Range Interpretation Comments VIT D 25OH (test code = <13 25-80 L 64957-1) LUCILLE (test code = LUCILLE) Deficiency: <20 ng/mLInsufficiency: 20-24 ng/mLOptimal: 25-80 ng/mL Lab Interpretation (test Abnormal code = 99861-8) [facility] [id number] 20:04:06 LEUKOCYTOSIS WITH ABSOLUTE NEUTROPHILIA AND INCREASED IMMATURE GRANULOCYTES/LEFT SHIFT, CONSISTENT WITH PATIENT'S KNOWN INFECTION. NORMOCYTIC, NORMOCHROMIC ANEMIA. MILD THROMBOCYTOSIS.[facility] [id number] 18:31:30 Test Item Value Reference Range Interpretation Comments FREE T3 (test code = 5984364784) 2.49 pg/mL 2.77-5.27 L Lab Interpretation (test code = Abnormal 18406-9) [facility]-REACTIVE [id number] 17:54:11 Test Item Value Reference Range Interpretation Comments CRP (test code = 8315872599) 0.2 mg/dL <0.8 Lab Interpretation (test code = Normal 15581-3) [facility] [id number] 13:49:44 Test Item Value Reference Range Interpretation Comments FREE T4 (test code = See_Comment L [Autom ated message] 0098650953) The system [employer] generated this result transmitted ref erence range: 0.78 - 2 .20 ng/dL:. The ref erence range was not u sed to interpret this result as normal/abnor mal. Lab Interpretation (test Abnormal code = 75685-2) [facility] WITH [id number] 12:20:38 Test Item Value Reference Range Interpretation Comments WBC (test code = See_Comment H [Automated 6690-2) message] The system which generated this result transmit rbitney reference range : 4.30 - 11.10 10*3/?L. [...] RDW-SD (test code = 48.5 fL 39.0-49.9 92387-8) RDW-CV (test code = 15.3 % 12.0-15.5 788-0) PLT (test code = See_Comment [Automated 777-3) message] The system which generated this result transmit britney reference range : 166 - 358 10*3/ ?L. The reference range was not u sed to interpret th is result as normal/abnormal . MPV (test code = 10.4 fL 9.5-12.9 82398-2) NRBC/100 WBC (test See_Comment [Automat ed code = 6692884003) message] The system which generated this result transmit britney reference range : 0.0 - 10.0 /100 WBCs. The reference range was not used to interpret this result as normal/abnormal . NRBC x10^3 (test code See_Comment [Auto mated = 5621214485) message] The system which generated this result transmit britney reference range : 10*3/?L. The reference range was not used to interpret this result as normal/abnormal . GRAN MAT (NEUT) % 74.0 % (test code = 770-8) IMM GRAN % (test code 3.20 % = 4987302132) LYMPH % (test code = 14.7 % 736-9) MONO % (test code = 7.7 % 5905-5) EOS % (test code = 0.1 % 713-8) BASO % (test code = 0.3 % 706-2) GRAN MAT x10^3(ANC) 11.18 10*3/uL 1.88-7.09 H (test code = 8725959028) IMM GRAN x10^3 (test 0.48 10*3/uL 0.00-0.06 H code = 2794811182) LYMPH x10^3 (test code 2.22 10*3/uL 1.32-3.29 = 731-0) MONO x10^3 (test code 1.17 10*3/uL 0.33-0.92 H = 742-7) EOS x10^3 (test code = <0.03 0.03-0.39 L 711-2) BASO x10^3 (test code 0.04 10*3/uL 0.01-0.07 = 704-7) Lab Interpretation Abnormal (test code = 33133-9) [facility] [id number] 11:45:10 Test Item Value Reference Range Interpretation Comments FERRITIN (test code = 16.1 ng/mL 11.0-264.0 0625555625) LUCILLE (test code = LUCILLE) Biotin has been reported to cause a negative bias, interpret results relative to patient's use of biotin. Lab Interpretation (test Normal code = 24234-8) [facility] Renaissance[facility]YRO[facility] STIMULATING [id number] 11:41:28 Test Item Value Reference Range Interpretation Comments TSH (test code = See_Comment L [Automated message] 1618006964) The system [employer] generated this result transmitted ref erence range: 0.45 - 4 .70 mIU/L. The refe rence range was not u sed to interpret this result as normal/abnor mal. Lab Interpretation (test Abnormal code = 24514-3) [facility] RenaissanceSEDIMENTATION [id number] 11:30:34 Test Item Value Reference Range Interpretation Comments ESR (test code = See_Comment [Automated message] 0518955347) The system [employer] generated this result transmitted ref erence range: 0 - 20 m m/HR. The reference r nicholas was not used to interpret this result as normal/abnor mal. Lab Interpretation (test Normal code = 40738-0) [facility] RenaissanceTROPONIN [id number] 11:30:08 Test Item Value Reference Interpretation Comments Range TROPONIN I (test 0.023 ng/mL See_Comment [Automated code = 8553473786) message] The system which generated this result [...] biotin. Lab Interpretation Normal (test code = 89179-4) [facility]COMP[facility] METABOLIC PANEL ([id number])2021-12-06 11:28:58 Test Item Value Reference Range Interpretation Comments NA (test code = 140 mmol/L 135-145 2215990073) K (test code = 3.1 mmol/L 3.5-5.0 L 1197504319) CL (test code = 106 mmol/L 98-108 1884603709) CO2 TOTAL (test code = 31 mmol/L 23-31 7011898392) AGAP (test code = 2-16 7536992078) BUN (test code = 24 mg/dL 7-23 H 1341662993) GLUCOSE (test code = 88 mg/dL 70-110 6219263255) CREATININE (test code = 0.95 mg/dL 0.50-1.04 8873804572) TOTAL BILI (test code = 0.3 mg/dL 0.1-1.2 8977835441) CALCIUM (test code = 8.4 mg/dL 8.6-10.6 L 9861556207) T PROTEIN (test code = 5.7 g/dL 6.3-8.2 L 5977468999) ALBUMIN (test code = 3.3 g/dL 3.5-5.0 L 9968826286) ALK PHOS (test code = 83 U/L 34-122 5875941854) ALTv (test code = 44 U/L 5-35 H 1742-6) AST(SGOT) (test code = 27 U/L 13-40 2498431997) eGFR (test code = mL/min/1.73m2 9571081084) LUCILLE (test code = LUCILLE) Association of [...] tests). Lab Interpretation Abnormal (test code = 42028-8) [facility]-TERMINAL [id number] 11:26:47 Test Item Value Reference Range Interpretation Comments NT-proBNP (test code 442 pg/mL See_Comment H [Autom ated = 3739337574) message] The system which generated this result transmitted reference range : <=125. The reference range was not used to interpret this result as normal/abnormal . LUCILLE (test code = LUCILLE) Biotin has been reported to cause a negative bias, interpret results relative to patient's use of biotin. Lab Interpretation Abnormal (test code = 75036-6) [facility] RenaissanceIRON [id number] 11:19:22 Test Item Value Reference Range Interpretation Comments IRON (test code = 9867813189) 34 ug/dL 50-160 L TIBC (test code = 4993707794) 408 ug/dL 250-410 % FE SAT (test code = 2267046499) 8 % 20-50 L Lab Interpretation (test code = Abnormal 56074-4) [facility]MAGNESIUM2022-04-05 11:18:47 Test Item Value Reference Range Interpretation Comments MAGNESIUM (test code = 1299637565) 1.9 mg/dL 1.7-2.4 Lab Interpretation (test code = Normal 97119-1) [facility]PHOSPHORUS2022-04-05 11:18:02 Test Item Value Reference Range Interpretation Comments PHOSPHORUS (test code = 4062692903) 3.3 mg/dL 2.5-5.0 Lab Interpretation (test code = Normal 72541-5) [facility] RenaissanceLIPID PANEL (19558)(TOTAL CHOLESTEROL, TRIGLYCERIDES, HDL)2021-12-06 11:09:41 Test Item Value Reference Range Interpretation Comments CHOL (test code = 208 mg/dL 120-200 H 2530674869) HDL (test code = 99 mg/dL >50 5375435456) HDLC RATIO (test code = See_Comment [Au tomated message] 9507698688) The system [employer] generated this result transmit britney reference range : <=4.5. The refe rence range was not u sed to interpret th is result as normal/abnormal . TRIG (test code = 172 mg/dL 30-170 H 3771186809) LDL CHOL (test code = 75 mg/dL See_Comment [Auto mated message] 65267-5) The system [employer] generated this result transmit britney reference range : <=160. The refe rence range was not u sed to interpret th is result as normal/abnormal . VLDL (test code = 34 mg/dL 5-60 6434902930) Lab Interpretation (test Abnormal code = 93416-4) [facility] RenaissanceURIC [id number] 11:09:21 Test Item Value Reference Range Interpretation Comments URIC ACID (test code = 8982652594) 6.1 mg/dL 2.9-6.0 H Lab Interpretation (test code = Abnormal 05619-8) [facility] RenaissanceGLYCOSYLATED HEMOGLOBIN (A1C)2021-12-06 08:48:15 Test Item Value Reference Range Interpretation Comments HGB A1C (test code = 5.7 % 4.0-5.7 4548-4) LUCILLE (test code = LUCILLE) Reference RangesNormal: <5.7%Prediabetes: 5.7 - 6.4%Diabetes: > 6.5% Lab Interpretation (test Normal code = 53971-8) [facility] RenaissanceCBC WITH [id number] 01:01:58 Test Item Value Reference Range Interpretation Comments WBC (test code = See_Comment H [Automated 3890-2) message] The system which generated this result [...] RDW-SD (test code = 46.4 fL 39.0-49.9 13680-9) RDW-CV (test code = 15.2 % 12.0-15.5 788-0) PLT (test code = See_Comment H [Automated 777-3) message] The system which generated this result transmit britney reference range : 166 - 358 10*3/ ?L. The reference range was not u sed to interpret th is result as normal/abnormal . MPV (test code = 10.6 fL 9.5-12.9 13284-3) NRBC/100 WBC (test See_Comment [Automat ed code = 3441657765) message] The system which generated this result transmit britney reference range : 0.0 - 10.0 /100 WBCs. The reference range was not used to interpret this result as normal/abnormal . NRBC x10^3 (test code See_Comment [Auto mated = 9437219145) message] The system which generated this result transmit britney reference range : 10*3/?L. The reference range was not used to interpret this result as normal/abnormal . SEG % (test code = 83 % 33-76 H 70387-4) BAND % (test code = 4 % 0-1 H 06441-4) LYMPH % (test code = 7 % 14-54 L 89082-7) MONO % (test code = 5 % 0-4 H 34191-9) EOS % (test code = 1 % 0-3 60901-2) ANC (test code = 19.01 10*3/uL 1.88-7.09 H 753-4) TOXIC CHANGES (test Present A code = 803-7) Lab Interpretation Abnormal (test code = 37458-5) [facility] RenaissanceWENDY [id number] 00:45:54 Test Item Value Reference Interpretation Comments Range TROPONIN I (test 0.022 ng/mL See_Comment [Automated code = 5049195593) message] The system which generated this result [...] biotin. Lab Interpretation Normal (test code = 25675-7) [facility] RenaissanceN-TERMINAL [id number] 00:42:51 Test Item Value Reference Range Interpretation Comments NT-proBNP (test code 544 pg/mL See_Comment H [Autom ated = 5171642957) message] The system which generated this result transmitted reference range : <=125. The reference range was not used to interpret this result as normal/abnormal . LUCILLE (test code = LUCILLE) Biotin has been reported to cause a negative bias, interpret results relative to patient's use of biotin. Lab Interpretation Abnormal (test code = 25559-4) [facility] RenaissanceACTIVATED PARTIAL THRMPLAS [id number] 00:36:33 Test Item Value Reference Range Interpretation Comments APTT Patient (test See_Comment L [Automat ed code = 3173-2) message] The system which generated this result transmitted reference range : 23 - 38 Seconds . The reference range was not used to interpr et this result as normal/abnormal . LUCILLE (test code = LUCILLE) The [facility] patient population mean normal value for aPTT is 30 seconds. Lab Interpretation Abnormal (test code = 67774-0) [facility] RenaissancePROTHROMBIN TIME / [id number] 00:34:31 Test Item Value Reference Range Interpretation [...] tions. Lab Interpretation (test Normal code = 46526-5) [facility] RenaissanceCOMP. METABOLIC PANEL (22211)2021-12-06 00:34:11 Test Item Value Reference Range Interpretation Comments NA (test code = 141 mmol/L 135-145 0044534174) K (test code = 3.9 mmol/L 3.5-5.0 3463766406) CL (test code = 104 mmol/L 98-108 3761214612) CO2 TOTAL (test code = 27 mmol/L 23-31 6215832959) AGAP (test code = 2-16 7314667616) BUN (test code = 24 mg/dL 7-23 H 1701236660) GLUCOSE (test code = 117 mg/dL 70-110 H 3207814318) CREATININE (test code = 0.96 mg/dL 0.50-1.04 3738906215) TOTAL BILI (test code = 0.4 mg/dL 0.1-1.9 7952662961) CALCIUM (test code = 8.9 mg/dL 8.6-10.6 2341762302) T PROTEIN (test code = 6.5 g/dL 6.3-8.2 6812435634) ALBUMIN (test code = 4.0 g/dL 3.5-5.0 7337833051) ALK PHOS (test code = 107 U/L 34-122 0621932129) ALTv (test code = 49 U/L 5-35 H 1742-6) AST(SGOT) (test code = 44 U/L 13-40 H 4556895899) eGFR (test code = mL/min/1.73m2 1527613326) LUCILLE (test code = LUCILLE) Association of [...] tests). Lab Interpretation Abnormal (test code = 02641-1) [facility] RenaissancePROCALCITONIN2022-04-04 02:29:14 Test Item Value Reference Range Interpretation Comments Procalcitonin (test 0.11 ng/mL <0.08 H code = 4497829044) LUCILLE (test code = LUCILLE) INTERPRETATION OF [...] lung abscess/empyema. For further information please refer to:[email or web address] Lab Interpretation Abnormal (test code = 18618-5) [facility] RenaissanceLactic Acid Whole [id number] 15:26:51 Test Item Value Reference Range Interpretation Comments LACTIC ACID (test code = 2.36 mmol/L 0.50-2.20 H 3440664588) Lab Interpretation (test code = Abnormal 83437-5) [facility] RenaissanceCB with [id number] 09:45:08 Test Item Value Reference Range Interpretation Comments WBC (test code = See_Comment H [Automated 4590-2) message] The system which generated this result [...] RDW-SD (test code = 48.3 fL 39.0-49.9 67394-1) RDW-CV (test code = 15.2 % 12.0-15.5 788-0) PLT (test code = See_Comment [Automated 777-3) message] The system which generated this result transmit britney reference range : 166 - 358 10*3/ ?L. The reference range was not u sed to interpret th is result as normal/abnormal . MPV (test code = 10.3 fL 9.5-12.9 68193-6) NRBC/100 WBC (test See_Comment [Automat ed code = 1506136754) message] The system which generated this result transmit britney reference range : 0.0 - 10.0 /100 WBCs. The reference range was not used to interpret this result as normal/abnormal . NRBC x10^3 (test code See_Comment [Auto mated = 9971178731) message] The system which generated this result transmit britney reference range : 10*3/?L. The reference range was not used to interpret this result as normal/abnormal . GRAN MAT (NEUT) % 90.3 % (test code = 770-8) IMM GRAN % (test code 1.20 % = 5686284751) LYMPH % (test code = 5.8 % 736-9) MONO % (test code = 2.6 % 5905-5) EOS % (test code = 0.0 % 713-8) BASO % (test code = 0.1 % 706-2) GRAN MAT x10^3(ANC) 19.89 10*3/uL 1.88-7.09 H (test code = 6400968884) IMM GRAN x10^3 (test 0.27 10*3/uL 0.00-0.06 H code = 1057896697) LYMPH x10^3 (test code 1.28 10*3/uL 1.32-3.29 L = 731-0) MONO x10^3 (test code 0.57 10*3/uL 0.33-0.92 = 742-7) EOS x10^3 (test code = <0.03 0.03-0.39 L 711-2) BASO x10^3 (test code 0.03 10*3/uL 0.01-0.07 = 704-7) POLYCHROMASIA (test 2+ See_Comment [Automa britney code = 09040-6) message] The system which generated this result transmit britney reference range : 2+. The referen ce range was not u sed to interpret th is result as normal/abnormal . TOXIC CHANGES (test Present A code = 803-7) Lab Interpretation Abnormal (test code = 87486-6) [facility] Metabolic Panel (NA, K, CL, CO2, GLUCOSE, BUN, CREATININE, CA)2021-12-04 09:38:00 Test Item Value Reference Range Interpretation Comments NA (test code = 137 mmol/L 135-145 7386286021) K (test code = 3.7 mmol/L 3.5-5.0 6491976593) CL (test code = 107 mmol/L 98-108 9855201211) CO2 TOTAL (test code = 21 mmol/L 23-31 L 4643238907) AGAP (test code = 2-16 9760578306) BUN (test code = 19 mg/dL 7-23 1446756430) GLUCOSE (test code = 149 mg/dL 70-110 H 0908608528) CREATININE (test code = 1.00 mg/dL 0.50-1.04 8794332277) CALCIUM (test code = 8.8 mg/dL 8.6-10.6 7627211951) eGFR (test code = mL/min/1.73m2 1716120698) LUCILLE (test code = LUCILLE) Association of [...] tests). Lab Interpretation Abnormal (test code = 58552-4) [facility] RenaissanceLactic Acid Whole [id number] 09:20:11 Test Item Value Reference Range Interpretation Comments LACTIC ACID (test code = 3.77 mmol/L 0.50-2.20 H 0818432659) Lab Interpretation (test code = Abnormal 43212-0) [facility] RenaissanceURINALYSIS2022-04-02 23:35:41 Test Item Value Reference Range Interpretation Comments APPEARANCE (test code = Clear Clear 3111295770) COLOR (test code = Yellow Yellow 5715957261) PH (test code = 4.8-8.0 1781518812) SP GRAVITY (test code = 1.003-1.030 2036855440) GLU U QUAL (test code = Normal Normal 0461518038) BLOOD (test code = Negative Negative Interfere nce from 5848236841) ascorbic acid m ay cause false neg ative results. KETONES (test code = Negative Negative 9083035235) PROTEIN (test code = Negative Negative 2887-8) UROBILIN (test code = Normal Normal 8881975924) BILIRUBIN (test code = Negative Negative 6164077513) NITRITE (test code = Negative Negative 4066747322) [place] (test code = Negative Negative 8970993809) RBC/HPF (test code = See_Comment [Autom ated message] 7495851670) The system [employer] generated this result transmitted ref erence range: 0 - 3 HP F. The reference range was not used to int erpret this result as normal/abnormal . WBC/HPF (test code = See_Comment [Autom ated message] 0400198186) The system [employer] generated this result transmitted ref erence range: 0 - 5 HP F. The reference range was not used to int erpret this result as normal/abnormal . BACTERIA (test code = Negative Negative 2518457194) SQ EPITH (test code = See_Comment H [Auto mated message] 7637573900) The system [employer] generated this result transmitted ref erence range: <=2 HPF. The reference range was not used to int erpret this result as normal/abnormal . Lab Interpretation (test Abnormal code = 82778-7) [facility] WITH [id number] 21:54:52 Test Item Value Reference Range Interpretation [...] RDW-SD (test code = 48.1 fL 39.0-49.9 26220-9) RDW-CV (test code = 15.3 % 12.0-15.5 788-0) PLT (test code = See_Comment [Automated 777-3) message] The system which generated this result transmit britney reference range : 166 - 358 10*3/ ?L. The reference range was not u sed to interpret th is result as normal/abnormal . MPV (test code = 10.1 fL 9.5-12.9 70192-6) NRBC/100 WBC (test See_Comment [Automat ed code = 4394359595) message] The system which generated this result transmit britney reference range : 0.0 - 10.0 /100 WBCs. The reference range was not used to interpret this result as normal/abnormal . NRBC x10^3 (test code See_Comment [Auto mated = 8820341045) message] The system which generated this result transmit britney reference range : 10*3/?L. The reference range was not used to interpret this result as normal/abnormal . GRAN MAT (NEUT) % 90.9 % (test code = 770-8) IMM GRAN % (test code 0.80 % = 4991502663) LYMPH % (test code = 6.4 % 736-9) MONO % (test code = 1.8 % 5905-5) EOS % (test code = 0.0 % 713-8) BASO % (test code = 0.1 % 706-2) GRAN MAT x10^3(ANC) 17.07 10*3/uL 1.88-7.09 H (test code = 0419711555) IMM GRAN x10^3 (test 0.15 10*3/uL 0.00-0.06 H code = 7925444650) LYMPH x10^3 (test code 1.20 10*3/uL 1.32-3.29 L = 731-0) MONO x10^3 (test code 0.34 10*3/uL 0.33-0.92 = 742-7) EOS x10^3 (test code = <0.03 0.03-0.39 L 711-2) BASO x10^3 (test code <0.03 0.01-0.07 = 704-7) TOXIC CHANGES (test Present A code = 803-7) Lab Interpretation Abnormal (test code = 99314-8) [facility] Renaissance[facility]MINAL [id number] 21:47:46 Test Item Value Reference Range Interpretation Comments NT-proBNP (test code 662 pg/mL See_Comment H [Autom ated = 0472901127) message] The system which generated this result transmitted reference range : <=125. The reference range was not used to interpret this result as normal/abnormal . LUCILLE (test code = LUCILLE) Biotin has been reported to cause a negative bias, interpret results relative to patient's use of biotin. Lab Interpretation Abnormal (test code = 89085-0) [facility] RenaissanceTROPONIN [id number] 21:47:46 Test Item Value Reference Interpretation Comments Range TROPONIN I (test 0.007 ng/mL See_Comment [Automated code = 2275972071) message] The system which generated this result [...] biotin. Lab Interpretation Normal (test code = 03110-3) [facility] RenaissanceAMYLASE2022-04-02 21:36:08 Test Item Value Reference Range Interpretation Comments KIERA (test code = 5194023945) 66 U/L 35-110 Lab Interpretation (test code = Normal 06912-9) [facility] RenaissanceLIPASE2022-04-02 21:36:08 Test Item Value Reference Range Interpretation Comments LIPASE (test code = 5464988696) 83 U/L 0-220 Lab Interpretation (test code = Normal 09252-6) [facility] RenaissanceCOM. METABOLIC PANEL (68381)2021-12-03 21:36:08 Test Item Value Reference Range Interpretation Comments NA (test code = 137 mmol/L 135-145 4933840213) K (test code = 4.5 mmol/L 3.5-5.0 7437045218) CL (test code = 107 mmol/L 98-108 9366265464) CO2 TOTAL (test code = 20 mmol/L 23-31 L 9755284199) AGAP (test code = 2-16 0193526812) BUN (test code = 20 mg/dL 7-23 5778187640) GLUCOSE (test code = 140 mg/dL 70-110 H 4474923452) CREATININE (test code = 0.97 mg/dL 0.50-1.04 8771740731) TOTAL BILI (test code = 0.3 mg/dL 0.1-1.2 2796137088) CALCIUM (test code = 8.9 mg/dL 8.6-10.6 3256375593) T PROTEIN (test code = 7.1 g/dL 6.3-8.2 3940404278) ALBUMIN (test code = 4.3 g/dL 3.5-5.0 3085683677) ALK PHOS (test code = 97 U/L 34-122 1617078955) ALTv (test code = 56 U/L 5-35 H 1742-6) AST(SGOT) (test code = 38 U/L 13-40 7223262579) eGFR (test code = mL/min/1.73m2 7549827787) LUCILLE (test code = LUCILLE) Association of [...] tests). Lab Interpretation Abnormal (test code = 46482-8) [facility] RenaissanceAC ABG + LACTIC [id number] 21:21:29 Test Item Value Reference Range Interpretation Comments PH (test code = 2) 7.35-7.45 PCO2 (test code = See_Comment L [Automate d 5973243379) message] The sy stem which generated this result transmitted reference range : 35 - 45 mmHg. The reference range was not used to interpret this result as normal/abnormal . PO2 (test code = See_Comment [Automated 3632892650) message] The sy stem which generated this result transmitted reference range : 80 - 100 mmHg. The reference range was not used to interpret this result as normal/abnormal . HCO3 (test code = See_Comment [Automate d 8380043736) message] The sy stem which generated this result transmitted reference range : 22 - 26 mEq/L. The reference range was not used to interpret this result as normal/abnormal . BE (test code = See_Comment [Automated 6054039854) message] The sy stem which generated this result transmitted reference range : -3.0 - 3.0 mEq/ L. The reference r nicholas was not used to interpret this result as normal/abnormal . LACTIC ACID (test code 2.96 mmol/L 0.50-2.20 H = 3343320831) Lab Interpretation Abnormal (test code = 42066-7) [facility] RenaissanceBasi Met[facility] (NA, K, CL, CO2, GLUCOSE, BUN, CREATININE, CA)2021-11-10 09:40:55 Test Item Value Reference Range Interpretation Comments NA (test code = 138 mmol/L 135-145 9380034951) K (test code = 3.4 mmol/L 3.5-5.0 L 6178180580) CL (test code = 107 mmol/L 98-108 4818095710) CO2 TOTAL (test code = 25 mmol/L 23-31 0108844784) AGAP (test code = 2-16 4172845468) BUN (test code = 15 mg/dL 7-23 2394421251) GLUCOSE (test code = 110 mg/dL 70-110 2490168072) CREATININE (test code = 0.81 mg/dL 0.50-1.04 2298252651) CALCIUM (test code = 7.8 mg/dL 8.6-10.6 L 0308987634) eGFR (test code = mL/min/1.73m2 7276667761) LUCILLE (test code = LUCILLE) Association of [...] tests). Lab Interpretation Abnormal (test code = 84291-4) [facility] with Uupudfyjhrli4602-92-97 09:25:30 Test Item Value Reference Range Interpretation [...] (test code = 57.2 fL 39.0-49.9 H 47923-7) RDW-CV (test code = 17.0 % 12.0-15.5 H 788-0) PLT (test code = See_Comment [Automated 777-3) message] The sy stem which generated this result transmitted reference range : 166 - 358 10*3/ ?L. The reference r nicholas was not used to interpret this result as normal/abnormal . MPV (test code = 9.2 fL 9.5-12.9 L 37333-6) NRBC/100 WBC (test See_Comment [Automat ed code = 5895503433) message] The system which generated this result transmitted reference range : 0.0 - 10.0 /100 WBCs. The refer ence range was not u sed to interpret th is result as normal/abnormal . NRBC x10^3 (test code See_Comment [Auto mated = 5038024863) message] The s ystem which generated this result transmitted reference range : 10*3/?L. The reference range was not used to interpret this result as normal/abnormal . GRAN MAT (NEUT) % 72.2 % (test code = 770-8) IMM GRAN % (test code 1.30 % = 9152177056) LYMPH % (test code = 18.9 % 736-9) MONO % (test code = 6.3 % 5905-5) EOS % (test code = 1.2 % 713-8) BASO % (test code = 0.1 % 706-2) GRAN MAT x10^3(ANC) 8.06 10*3/uL 1.88-7.09 H (test code = 4861097248) IMM GRAN x10^3 (test 0.14 10*3/uL 0.00-0.06 H code = 7340014869) LYMPH x10^3 (test code 2.10 10*3/uL 1.32-3.29 = 731-0) MONO x10^3 (test code 0.70 10*3/uL 0.33-0.92 = 742-7) EOS x10^3 (test code = 0.13 10*3/uL 0.03-0.39 711-2) BASO x10^3 (test code <0.03 0.01-0.07 = 704-7) Lab Interpretation Abnormal (test code = 44594-7) [facility] [id number] 09:22:39 Test Item Value Reference Range Interpretation Comments LACTIC ACID (test code = 3.32 mmol/L 0.50-2.20 H 8378372961) Lab Interpretation (test code = Abnormal 48137-6) [facility]ACTIV[facility] PARTIAL THRMPLAS [id number] 02:13:42 Test Item Value Reference Range Interpretation Comments APTT Patient (test code See_Comment L [Au tomated message] = 3173-2) The system [employer] generated this result transmitted ref erence range: 26 - 36 Seconds. The reference range was not used to int erpret this result as normal/abnormal . Lab Interpretation (test Abnormal code = 47877-3) [facility] RenaissancePROTHROMBIN TIME / [id number] 02:13:42 Test Item Value Reference Range Interpretation [...] tions. Lab Interpretation (test Normal code = 09786-6) [facility] RenaissanceD-[id number] 02:13:42 Test Item Value Reference Interpretation Comments Range D-DIMER (test code = See_Comment H [Autom ated 7760152913) message] The system which generated this result [...] diagnosis. Lab Interpretation Abnormal (test code = 58038-7) [facility] RenaissanceCOMP. METABOLIC PANEL (30211)2021-11-10 01:57:17 Test Item Value Reference Range Interpretation Comments NA (test code = 139 mmol/L 135-145 0722771106) K (test code = 3.9 mmol/L 3.5-5.0 7545305999) CL (test code = 106 mmol/L 98-108 2987764324) CO2 TOTAL (test code = 27 mmol/L 23-31 2900037464) AGAP (test code = 2-16 2783626009) BUN (test code = 17 mg/dL 7-23 8864769680) GLUCOSE (test code = 135 mg/dL 70-110 H 4271441440) CREATININE (test code = 0.72 mg/dL 0.50-1.04 3960824795) TOTAL BILI (test code = 0.3 mg/dL 0.1-1.7 8196486350) CALCIUM (test code = 8.1 mg/dL 8.6-10.6 L 9717295645) T PROTEIN (test code = 5.6 g/dL 6.3-8.2 L 9604723898) ALBUMIN (test code = 3.3 g/dL 3.5-5.0 L 5740493145) ALK PHOS (test code = 126 U/L 34-122 H 9060627681) ALTv (test code = 47 U/L 5-35 H 1742-6) AST(SGOT) (test code = 27 U/L 13-40 6481392601) eGFR (test code = mL/min/1.73m2 9463141902) LUCILLE (test code = LUCILLE) Association of [...] tests). Lab Interpretation Abnormal (test code = 91892-2) [facility]G + LACTIC [id number] 01:51:44 Test Item Value Reference Range Interpretation Comments PH (test code = 2) 7.35-7.45 PCO2 (test code = See_Comment [Automate d 2867878810) message] The sy stem which generated this result transmitted reference range : 35 - 45 mmHg. The reference range was not used to interpret this result as normal/abnormal . PO2 (test code = See_Comment L [Automated 4802255041) message] The sy stem which generated this result transmitted reference range : 80 - 100 mmHg. The reference range was not used to interpret this result as normal/abnormal . HCO3 (test code = See_Comment [Automate d 6107857586) message] The sy stem which generated this result transmitted reference range : 22 - 26 mEq/L. The reference range was not used to interpret this result as normal/abnormal . BE (test code = See_Comment [Automated 7231594226) message] The sy stem which generated this result transmitted reference range : -3.0 - 3.0 mEq/ L. The reference r nicholas was not used to interpret this result as normal/abnormal . LACTIC ACID (test code 4.25 mmol/L 0.50-2.20 H QUES = 4325422482) Lab Interpretation Abnormal (test code = 45101-4) [facility] RenaissanceCBC WITH [id number] 01:50:58 Test Item Value Reference Range Interpretation [...] (test code = 55.7 fL 39.0-49.9 H 49703-1) RDW-CV (test code = 16.8 % 12.0-15.5 H 788-0) PLT (test code = See_Comment [Automated 777-3) message] The system which generated this result transmit britney reference range : 166 - 358 10*3/ ?L. The reference range was not u sed to interpret th is result as normal/abnormal . MPV (test code = 9.5 fL 9.5-12.9 33624-1) NRBC/100 WBC (test See_Comment [Automat ed code = 3659467416) message] The system which generated this result transmit britney reference range : 0.0 - 10.0 /100 WBCs. The reference range was not used to interpret this result as normal/abnormal . NRBC x10^3 (test code <0.01 See_Comment [Auto mated = 8230873928) message] The system which generated this result transmit britney reference range : 10*3/?L. The reference range was not used to interpret this result as normal/abnormal . GRAN MAT (NEUT) % 84.7 % (test code = 770-8) IMM GRAN % (test code 0.80 % = 8314861421) LYMPH % (test code = 10.9 % 736-9) MONO % (test code = 3.4 % 5905-5) EOS % (test code = 0.1 % 713-8) BASO % (test code = 0.1 % 706-2) GRAN MAT x10^3(ANC) 11.84 10*3/uL 1.88-7.09 H (test code = 9741596786) IMM GRAN x10^3 (test 0.11 10*3/uL 0.00-0.06 H code = 8657328169) LYMPH x10^3 (test code 1.52 10*3/uL 1.32-3.29 = 731-0) MONO x10^3 (test code 0.47 10*3/uL 0.33-0.92 = 742-7) EOS x10^3 (test code = <0.03 0.03-0.39 L 711-2) BASO x10^3 (test code <0.03 0.01-0.07 = 704-7) Lab Interpretation Abnormal (test code = 73526-8) [facility] RenaissanceCYTO [id number] 21:38:57 Test Item Value Reference Range Interpretation Comments Case Report (test Non-Gynecologic Cytology code = 4225920067) ?Case: [id number] ?Authorizing Provider: ?Anaya Guallpa MD ? ? Collected: ? 10/21/2021 1249 ?Ordering Location: ? ? [facility] ?Received: ?10/21/2021 1257 ? Medicine/Surgery CLC 7B ?Pathologist: ? Glenna Alejandra MD ? Specimen: ? ?LUNG, LEFT UPPER LOBE, BRONCHOALVEOLAR LAVAGE ? Final Diagnosis (test j3gbwIQpMHSlf6gcJQZngHHe code = 2593331731) ZzEwMzNcZnRuYmpcdWMxIHtc cnRmMVxlcGljOTYwMVxhbnNp GFVvgGAsP7SqzuybYBycGS5r FZ1qmJoyuGExbIUmLXVaNeDy e0thx915yDZyj3cbWJCIcjfs uIn7jQnzO36zx6S0VdasF7ku ZWQwXGdyZWVuMFxibHVlMDt9 XHBhcGVydzEyMjQwXHBhcGVy cMU3BEQhIM3pmsioHMglNCvn UEOohmV1RSJgdIBfK4PrZSKf VM6bdihlTVM3WHfnSWAtTZD2 NyOtPRKnn4Jswrs1OvLruKUh ZFxwbGFpblxmczIwXHBhclxi IEExLiAgTFVORywgTEVGVCBV CKBFXzMTU1THSlHGMn4MR8lX SYpBFJ2SSXHqSNMEAHkQCjdl RSUkPySuWBCnVmhdRkMbVk5e XBFRFSeESM3JCQQCYRuMYSvB LS4LSHXLJNEcRWzdXVNnE4JH VGGDNE1QZtXpYUKieduuTyHg eNWobSvwalGjQZgph1OwY3Hg MjAwMFxhbnNpXGRlZmxhbmcx PSOaWKF1peUpEQTgCZrkWTBo HLlkWs1wkNJtzRnlErTaYSLu l6qnmzNESSvcAeXlY173RMCa KStpu6zig3BtZCGekCBzo8Y0 XUCQzthnyZj0g1xfKbCdEiI8 pVMeXJepN3pgdwJanEQqD2Am pFGnpSg1dVfyA06qw8U3Rhal A2gtLHXlFLTeN2CxRH4mDZZx Vkm0OBE8LIP2XYWkRTJqO6Gc HU5yMNHouHUdJWl5c8rziLbc MNFfKCF9q4vgEVgjqqI4OH1m ac4luOz5i3ueqtPhERRbJFOy mHNZUEHcH1WntBtbGo1yrKx2 eKrqAabjQXM8Zuw1TT3euj07 prt4vScgVGVeqagrSxP4NNbn ZMOtcxwnYQw7SGpvNIHcfOJ6 WIJvqYYhF4WcRBFoVB9fdfy7 BEF6MQhrUFEeZnJ8CXHiuMHv TCOxoKzwQYbhi512UXG9HdUf GO2xF1Kcw1N6kN4dmXAkABTt aRWgTiLsIAHkrj4ktXIjJGnm t2CcQQF4htP8yISgeQBfXFCj VE86Impip8BhGclxOEA6IOBi rpTky4Ftm7jdKdUifxHpD5jj Z7LoTOIaJMYnWZPxMyQckvBn e7Dnc1XakRRlaOu0s0ycNAIi JIEelQmam1xePCD4ZZEaE4O9 iLIee4xdSIqhHRSolFY9azU6 NSMooKUhA5ZtlX7kUZHqFY7t mpt3k5rfYSR2JGbcEOYvIxD9 qdZ9EPLtkZKlPFNqlSihYKah z694LUX1EaVvGNZss0NpY8Ms oGdqC10ysVelL03pHAQhbHhs hE6dxAdolU7bOuYhMoXuECse bFxwbGFpblxmMVxmczIwXGxh lwzfPCTpPSzgF1rbAzOwZKWh nOiaNDsjm0MqDJBbNLMiSmii czIwXHBhciBJIGhhdmUgcGVy b48jDYpbzRIsYCHcRWuyAYEa yQlmb0JzY2rvPJ1zA6NmcSWn gvDcxzLlCAseFHXxx0w4xLHr fQwzv2XgpZMrRJ33sgInQCKe YIF7JXWcz0ovGX29mbwiYxAi vX12xaXmwyBuHIRnn0xrS6ii nVIdo1Uye8BosqUeCLopv6Rg HM4peZLghehlcNN8ODKogYOz hyXmylA5hUjcGFEzzH9ndN4o mFhtzE1hJuKuZfExIUcvYK8x JZAzL8jsqDCkQVJzVIZwN1av NmVifH5srAywSmuhacF4FSLk cn19 Final Diagnosis t9jzrXSwZNOchIJ3FhZgOKHo Comment (test code = w9ebv1KivKSgtWGpFDpvpAPw 5945384241) zyAmhh10vVY1fK44NK7kCQDe WjQ7UHKgfpS3Lfl8YVAwVHWi gBPkX696r2otp1ayjxLdzWY9 UJMtELReN9OzRC0sFINgsIHx E90hfKYkUAI1LUWdRLLmbNMj DPTwAVY3LVBixRMaG8jdLGYj EW4unidcTHmyRFjeJSBchVL7 FWXtaOUsA7ZbWIQjZKrjGQEy zvq5LfPeHc2hdTXpaLaeIAao IFYyMAXfVAwgROWzMvYtV50m KVFlKIKau1vzsS1eqVy3MVCw v03bzK9jJMHcxNlzfQxhfAZa ZTdiyxTkmdZoUpG5OPIhjfJm lFCfOZ4vQ7YfvAllG0UeIhML SIVjEVgav2FaRV0cZKX6qQVo LkOzbyD0yG9grZZiyzBvVTPj YtKeY7YyES4lWD7zvPcuzcEx dCBjZWxscyBpZGVudGlmaWVk AwcyHWTyZ4XjNHXggt3= Clinical Information 1. Pneumonia / covid / (test code = SARS 6453293015) Gross Description f9bzxUEjGSUqmPO0GlAlSQKl (test code = j4tis4TueTBmzQTqDEdemPPm 5228692406) eyMumd62vYY0qG63LC9hXXIc QiW2UVCdaeX3Pvp8XLPqSPHy jTMhQ579j5gtd6jivsOopYK0 BMAhRHDwR3YxXY4yDEXmzMKv V10xaTXfQCX0QPGyKANbbGQv GTAbKRX9ZTGqwOPzB8jwFETq BT5luxvgVTchWXdeAMWfcQA1 UAQmcRItO0QlDXRyLHfjJPRo wcy8XtBjDv1enVIxgUfiUPei ERPpb9kgDYTtbTYpSBX8RMny jJCzSEJmGUIcDFi4GHUuSTzn tHDaTC2ujAynDpnihHqix0Le dCBcXGlkIDUxMDAyIFxcZGIg L2ITNGGlMxIlOcx7EPUnIGf6 FGz4CV3JHwXxQGQgTjh4IRCc EiGcJCz6KHfqNS8ABGR4UhR6 SAUhIjqyNPYbOtSbOXk1EFEd XFxmbCBcXGYgQXJpYWwgXFxm xqVbJARjPT4ofZyuqGRapuvo czIwXHBhclxmczIyXHBhciBB ZS9mISjCFhqfZIuLHcHeDOIN RHQoUI0GTXneMgNEEmHQT2TH VkVPTEFSIExBVkFHRVxwYXJc JzWvGLkkSgExBeLrWYy6OAEn BeZro4npfDLsX2WvpmQnPICq oAKpTOE3ZSIpN5Nil0YxT1te RAZmDml1jEMwxdAjXNc7ERQu GnLav2wtjAXvDGDqGUTemeWf KDGjm9npRSXmIJtLyFGdw8Qv gmHikqHdXFMfsClyhzV7ANJk Gj0oBQ6dx7FmkEGbmgAwPKBL MDWchdzva5tse2Fyf7ZwaV8r ZClcZnMyMlxjZjAgIHtcZXBp T5MkF7EozvJ7o4ltuPhdh3Ef sOYkDD3vnEEkzY== Disclaimer (test code s5evkTSrZXHzk1zbLMPxvGVw = 9834740391) ZzEwMzNcZnRuYmpcdWMxIHtc woQrTQxsz0WpD8CnTrLcOUwx bnNpXGRlZmxhbmcxMDMzXGZ0 ewWoTJIvEZxqVROxUIjrPp0l zDSioHqySoUqZCLbd1ueipNX LIxfCqJuT565ZWJpVXpvl0ce k2OtZGUegJPgx5A1NKOZvvgk kBo7eKtyW17iq2R3VfgbX9el JANnSBZwK9BuZH8nUQLeKpe6 LCG0SDH3NLIbCFBxN6VbFI5x WFPjvQXyIDr4l3chhKpfLKIr COI1a1emXZwstdFtDS8xgo1y nGo1i5qjwiFtDTCiDAVunHJC UCYnE0QobBtzRn9zqLc8cEoe ZjtjSHP8Ogk6IF8qoo80guz5 fNneCEDxizhzFdM1YRzlYBQq bmknMLy6LKziQRSijQM6ORXp kLJeM4YrCEBvWI5bgbr9MVT1 URzrYDQhAmW9ROEgpSQoJDAe nNvyZZagm400YFP9UxVqEH0e B9Odi1Z7cB9ymAXxYATzvQAy PqZoMXBgbu4hsWNnWIaze2Ta MLC8yrC6bFIhfVAvPJSrSW54 Mypwm4MjSrsum0ZcS33awBY2 IUvbi3loLA2pAbJ1igMiZSzm h9mmpC6kVwA0ZFxoPQ1zPJ5i YMWuyJ1twuknJDCgXlImjdsa OBBjbFssqcNlRc2bpMruPJX0 DWtxR5kcoX1zEaK5ZUwxV5qm mK1rJDz1THbwaGR4IEUeoI8p YS0ricxsd5rjEKraHEusSUOq mtO5txC4XKPnsLWiV8WjkN9b WOOjFN3hcqpdr6lwNHT5VBpt GRJuYGO9CqSfMKTsg1Sinem9 PwJik9TliAHrRZhvI03uf403 SQEzpuWbG4ynpXCfyzgygTLs laivBQrjfxN9ODGnztKhb2Hu VGHjXWN4HPovFUgqcBPaWSVq gSzby7rnY3LhkBBsSGKvKYdm XGYxXGZzMjBcbGFuZzEwMzNc aGljaFxmMVxkYmNoXGYxXGxv N2sjOmGkL7ShTDVsImTttNCt F7emGYwswzTkNEPmjzCscHA3 SNisK5z7NFQqjbVvxYy9cjEc LbQpCNQiGWO1DJsfiEKfVGAj j5XjnkahuRShLq9yePGjRLTg kY8sPXCvOVGxBDqkQJ3znLm0 ZAGSnFPexEBvSsRFCVFdLM23 htTnUZLRylrft7C2EFlqHEUp e8KczIJfO8ujj0DcIGRub56r NO2ka9X3t9nyIUY0ZG3gm4Tl HNBunTBjfLSgYTAsm3Zhkexk v4SaIACdsxVsb3YzFPZltpZv aFUlMDEsqoQdem9pfjSxZMBr PDKzR3AxryvfvAgypyPoGMDu le8eogQkLKJ1YRHJWAClBLAb b3IetH1ccZWBDHR0tGXsjj0d dyBNtMZhIZHapw78XPOzZK6j I0qdNSQzPNRqekEgtMTtn7Gh UXFffAW9lHQpZY9RFyQRw72g IGFuZCBEcnVnIEFkbWluaXN0 ydK8eY7xOHnKKJPiObp+IFRo ZWWHGSGcZG7zdqEub0RtaqWe mCkbHQSvtLSrf4XxxQGqn9Qs bWocl9YhwXDooEBuSZ1yLSMg clxwYXIgVVRNQiBMYWJvcmF0 p2ExOJBjPOTvMBX0qJluamn1 WMMtuJ0tDUOsD8tiqkmsCBue SVPyr4LilB5ykLXGuISbw0Pi vKZstCXPbDFeUB0coqSfQTvV NTcOJGN2fwLjWNVto2HwAVlt X8ixX52eoSfhkDt1tBN8FFO3 vF6aLbg+IFxwYXJccGFyIEFw zOPzbUFtOTUfaYkrxaHhR2Mh vtOenX3sdHBtorQwRJ8yEI5e Z8F5wKLnWAXltkIcu6dqBLub dmUgYmVlbiByZXZpZXdlZCBm h4UnOMzqXOX1FOifalXgdcIf dWRpbmcgSCZFLCBTcGVjaWFs BTW1CTpznyHkfpKzDW7fkH3j pEuahQ8ztBBzlXM2uhaaWDTo TLNjvFwjBSJcLJ9nnJEwIJCm tlMHqJrskPWueP6lV7XjJEBs IKAwzh7rOANozR0yUXatv7Tv ewpgTCViUFCvVGPdogFitj2r VYYomKSGYO7AKEmarYEvy4Uv gmAeO9bVQKK3LJQwYhPeWwgf EAWzvRXssGQrRMYahw45SSZd bB1wxQhnGDCunG7dqO9ecLfw nB0yMdWyIkTwGGucYH1eEPZj Q6kpzGRzHXTiSDJcZ7esDiMp bL8vjIvrVXefGvBtIkOdDNqd YXJ9fQ== Embedded Images (test code = 3146236229) [facility]CLE[facility] ANTIBODY [id number] 20:07:20 Test Item Value Reference Range Interpretation Comments SHIRA (test code = Negative Negative 6785240771) LUCILLE (test code = LUCILLE) Negative - [...] separately. Lab Interpretation (test Normal code = 44005-7) [facility] METABOLIC PANEL (NA, K, CL, CO2, GLUCOSE, BUN, CREATININE, CA)2021-10-24 13:05:02 Test Item Value Reference Range Interpretation Comments NA (test code = 134 mmol/L 135-145 L 6357786467) K (test code = 4.5 mmol/L 3.5-5.0 6386318480) CL (test code = 99 mmol/L 98-108 0750496641) CO2 TOTAL (test code = 30 mmol/L 23-31 2164020634) AGAP (test code = 2-16 1367554601) BUN (test code = 23 mg/dL 7-23 0979042867) GLUCOSE (test code = 118 mg/dL 70-110 H 2795652239) CREATININE (test code = 0.71 mg/dL 0.50-1.04 7705181996) CALCIUM (test code = 8.2 mg/dL 8.6-10.6 L 9104046286) eGFR (test code = mL/min/1.73m2 8809971189) LUCILLE (test code = LUCILLE) Association of [...] tests). Lab Interpretation Abnormal (test code = 57496-5) [facility] METABOLIC PANEL (NA, K, CL, CO2, GLUCOSE, BUN, CREATININE, CA)2021-10-24 13:05:02 Test Item Value Reference Range Interpretation Comments NA (test code = 134 mmol/L 135-145 L 0969395866) K (test code = 4.5 mmol/L 3.5-5.0 7601435375) CL (test code = 99 mmol/L 98-108 1669755387) CO2 TOTAL (test code = 30 mmol/L 23-31 3265194254) AGAP (test code = 2-16 4707712027) BUN (test code = 23 mg/dL 7-23 9857356342) GLUCOSE (test code = 118 mg/dL 70-110 H 1778375243) CREATININE (test code = 0.71 mg/dL 0.50-1.04 6619784183) CALCIUM (test code = 8.2 mg/dL 8.6-10.6 L 1516018395) eGFR (test code = mL/min/1.73m2 1223779777) LUCILLE (test code = LUCILLE) Association of [...] tests). Lab Interpretation Abnormal (test code = 54872-1) [facility] WITHOUT [id number] 12:51:39 Test Item Value Reference Range Interpretation Comments WBC (test code = 6690-2) See_Comment H [A utomated message] The system [employer] generated this result transmit britney reference range : 4.30 - 11.10 10*3/?L. The reference range was not used to interpret this result as normal/abnormal . RBC (test code = 789-8) See_Comment [Au tomated message] The system [employer] generated this result transmit britney reference range [...] See_Comment H [Au tomated message] The system [facility] generated this result transmit britney reference range : 166 - 358 10*3/?L. The reference range was not used to interpret this result as normal/abnormal . MPV (test code = 10.1 fL 9.5-12.9 10804-9) RDW-CV (test code = 14.2 % 12.0-15.5 788-0) RDW-SD (test code = 43.8 fL 39.0-49.9 95661-2) NRBC x10^3 (test code = See_Comment [Au tomated message] 2561112043) The system [facility] generated this result transmit britney reference range : 10*3/?L. The reference range was not used to interpret this result as normal/abnormal . NRBC/100 WBC (test code See_Comment [Au tomated message] = 6242642464) The system [facility] generated this result transmit britney reference range : 0.0 - 10.0 /100 WBC s. The reference r nicholas was not used to interpret this result as normal/abnormal . IPF % (test code = 6183806887) Lab Interpretation (test Abnormal code = 60964-4) [facility] WITHOUT [id number] 12:51:39 Test Item Value Reference Range Interpretation Comments WBC (test code = 6690-2) See_Comment H [A utomated message] The system [facility] generated this result transmit britney reference range : 4.30 - 11.10 10*3/?L. The reference range was not used to interpret this result as normal/abnormal . RBC (test code = 789-8) See_Comment [Au tomated message] The system [facility] generated this result transmit britney reference [...] See_Comment H [Au tomated message] The system [employer] generated this result transmit britney reference range : 166 - 358 10*3/?L. The reference range was not used to interpret this result as normal/abnormal . MPV (test code = 10.1 fL 9.5-12.9 71051-6) RDW-CV (test code = 14.2 % 12.0-15.5 788-0) RDW-SD (test code = 43.8 fL 39.0-49.9 74578-7) NRBC x10^3 (test code = See_Comment [Au tomated message] 1990626133) The system [employer] generated this result transmit britney reference range : 10*3/?L. The reference range was not used to interpret this result as normal/abnormal . NRBC/100 WBC (test code See_Comment [Au tomated message] = 7337778788) The system [employer] generated this result transmit britney reference range : 0.0 - 10.0 /100 WBC s. The reference r nicholas was not used to interpret this result as normal/abnormal . IPF % (test code = 1797951921) Lab Interpretation (test Abnormal code = 54298-3) [facility] TUBERCULOSIS COMPLEX PCR 2021-10-23 16:23:29 Test Item Value Reference Range Interpretation Comments Mycobacterium Negative Negative tuberculosis DNA (test code = 75594-8) LUCILLE (test code = LUCILLE) Method performance specifications have not been established for specimens other than SPUTUM. Results for other tested specimen types should be interpreted based on clinical context. Lab Interpretation Normal (test code = 48358-3) [facility]MYCOBACTERI[facility] TUBERCULOSIS COMPLEX PCR 2021-10-23 16:23:29 Test Item Value Reference Range Interpretation Comments Mycobacterium Negative Negative tuberculosis DNA (test code = 24430-0) LUCILLE (test code = LUCILLE) Method performance specifications have not been established for specimens other than SPUTUM. Results for other tested specimen types should be interpreted based on clinical context. Lab Interpretation Normal (test code = 44164-7) [facility] BY [id number] 20:36:40 Test Item Value Reference Range Interpretation Comments Adenovirus (test code = Negative Negative 70180-1) Coronavirus HKU1 (test Negative Negative code = 99544-1) Coronavirus NL63 (test Negative Negative code = 27701-7) Coronavirus 229E (test Negative Negative code = 52447-4) Coronavirus OC43 (test Negative Negative code = 60273-7) Human Metapneumovirus Negative Negative (test code = 65119-4) Human Negative Negative Rhinovirus/Enterovirus (test code = 98001-8) Influenza A (test code = Negative Negative 10425-5) Influenza B (test code = Negative Negative 98256-0) Parainfluenza Virus 1 Negative Negative (test code = 72993-8) Parainfluenza Virus 2 Negative Negative (test code = 45244-9) Parainfluenza Virus 3 Negative Negative (test code = 71643-7) Parainfluenza Virus 4 Negative Negative (test code = 31482-9) Respiratory Syncytial Negative Negative Virus (test code = 02525-4) Bordetella parapertussis Negative Negative (test code = 66658-4) Bordetella pertussis Negative Negative (test code = 28109-4) Chlamydia pneumoniae Negative Negative (test code = 58936-2) Mycoplasma pneumoniae Negative Negative (test code = 44200-3) LUCILLE (test code = LUCILLE) Negative:A negative result does not rule-out infection. ?This assay does not test for all potential infectious agents. ? Positive:A positive test result does not necessarily indicate the presence of viable organism. ? Lab Interpretation (test Normal code = 02980-8) [facility] [id number] 20:36:40 Test Item Value Reference Range Interpretation Comments Adenovirus (test code = Negative Negative 76950-3) Coronavirus HKU1 (test Negative Negative code = 43163-8) Coronavirus NL63 (test Negative Negative code = 75499-9) Coronavirus 229E (test Negative Negative code = 96179-4) Coronavirus OC43 (test Negative Negative code = 91433-5) Human Metapneumovirus Negative Negative (test code = 61601-1) Human Negative Negative Rhinovirus/Enterovirus (test code = 87535-5) Influenza A (test code = Negative Negative 40750-6) Influenza B (test code = Negative Negative 50235-9) Parainfluenza Virus 1 Negative Negative (test code = 41439-5) Parainfluenza Virus 2 Negative Negative (test code = 31559-5) Parainfluenza Virus 3 Negative Negative (test code = 56130-7) Parainfluenza Virus 4 Negative Negative (test code = 68911-7) Respiratory Syncytial Negative Negative Virus (test code = 00871-1) Bordetella parapertussis Negative Negative (test code = 15522-3) Bordetella pertussis Negative Negative (test code = 94741-3) Chlamydia pneumoniae Negative Negative (test code = 51700-0) Mycoplasma pneumoniae Negative Negative (test code = 14617-5) LUCILLE (test code = LUCILLE) Negative:A negative result does not rule-out infection. ?This assay does not test for all potential infectious agents. ? Positive:A positive test result does not necessarily indicate the presence of viable organism. ? Lab Interpretation (test Normal code = 94444-2) [facility] [id number] 19:52:54ANA - Pathologist InterpretationANA HEp-2 IIFA Pathologist Interpretation Report Patient Name: Donal Ordonez ? ? Antinuclear Antibody (SHIRA) Test (Anti-Cell Antibodies Test) Indirect Immunofluorescence Assay on HEp-2 Cells Screening titer: 1:80 (adults, > 18 years old), 1:40 (pediatrics, <= 18 years old) ? Result: The antinuclear antibody (SHIRA) screen was positive but thenhad a low titer of <1:80 on subsequent testing. Generally, a titer greater than or equal to 1:160is considered clinically significant. Remarks: This patient has a positive antinuclear antibody (SHIRA) screening test but with a low titer of <1:80 on subsequent testing. A titer of greater than or equal to 1:40 may occur in up to 20-30% of individuals without a systemic autoimmune rheumatic diseaseand is thus not considered to be clinically significant. In contrast, a titer greater than or equal to 1:160 is generally considered to be clinically significant, as only up to 5% of individuals in thegeneral population will have a positive SHIRA at this titer. ? ? Therefore, this low titer SHIRA result does not necessarily indicate that the patient has a systemic autoimmune rheumatic disease. Furthermore, false positive SHIRA results are associated with increasing age and female gender. Clinical correlation is recommended. ? (https://pubmed.ncbi.nlm.nih.gov/96099670/) ? If the patient's clinical conditi on changes/progresses, repeating the SHIRA screen at a future time may be informative due to the evolving nature of systemic rheumatic diseases. ? ? A diagnosis cannot be based exclusively on SHIRA detection and/or pattern and thus should be made viathe integration of patient history, physical exam findings, and other diagnostic tests as clinicallyindicated. Juanis Mata MD ?10/22/2021 ?1:52 PM [facility]Do[facility]CLE[facility]- PATHOLOGIST [id number] 19:52:54ANA - Pathologist InterpretationANA HEp-2 II Pathologist Interpretation Report Patient Name: Donal Ordonez ? ? Antinuclear Antibody (SHIRA) Test (Anti-Cell Antibodies Test) Indirect Immunofluorescence Assay on HEp-2 Cells Screening titer: 1:80 (adults, > 18 years old), 1:40 (pediatrics, <= 18 years old) ? Result: The antinuclear antibody (SHIRA) screen was positive but thenhad a low titer of <1:80 on subsequent testing. Generally, a titer greater than or equal to 1:160is considered clinically significant. Remarks: This patient has a positive antinuclear antibody (SHIRA) screening test but with a low titer of <1:80 on subsequent testing. A titer of greater than or equal to 1:40 may occur in up to 20-30% of individuals without a systemic autoimmune rheumatic diseaseand is thus not considered to be clinically significant. In contrast, a titer greater than or equal to 1:160 is generally considered to be clinically significant, as only up to 5% of individuals in thegeneral population will have a positive SHIRA at this titer. ? ? Therefore, this low titer SHIRA result does not necessarily indicate that the patient has a systemic autoimmune rheumatic disease. Furthermore, false positive SHIRA results are associated with increasing age and female gender. Clinical correlation is recommended. ? (https://pubmed.ncbi.nlm.nih.gov/56229421/) ? If the patient's clinical conditi on changes/progresses, repeating the SHIRA screen at a future time may be informative due to the evolving nature of systemic rheumatic diseases. ? ? A diagnosis cannot be based exclusively on SHIRA detection and/or pattern and thus should be made viathe integration of patient history, physical exam findings, and other diagnostic tests as clinicallyindicated. Juanis Mata MD ?10/22/2021 ?1:52 PM [facility] SERVICESUnB[facility]CB WITH [id number] 11:43:17 Test Item Value Reference Range Interpretation Comments WBC (test code = See_Comment H [Automated 2490-2) message] The system which generated this result transmit britney reference range : 4.30 - 11.10 10*3/?L. The reference range was not used to interpret this result as normal/abnormal . RBC (test code = See_Comment [Automated 119-8) message] The system which generated this result [...] RDW-SD (test code = 46.8 fL 39.0-49.9 43750-1) RDW-CV (test code = 14.6 % 12.0-15.5 788-0) PLT (test code = See_Comment H [Automated 777-3) message] The system which generated this result transmit britney reference range : 166 - 358 10*3/ ?L. The reference range was not u sed to interpret th is result as normal/abnormal . MPV (test code = 10.2 fL 9.5-12.9 33412-8) NRBC/100 WBC (test See_Comment [Automat ed code = 7542576336) message] The system which generated this result transmit britney reference range : 0.0 - 10.0 /100 WBCs. The reference range was not used to interpret this result as normal/abnormal . NRBC x10^3 (test code <0.01 See_Comment [Auto mated = 2909903788) message] The system which generated this result transmit britney reference range : 10*3/?L. The reference range was not used to interpret this result as normal/abnormal . GRAN MAT (NEUT) % 93.6 % (test code = 770-8) IMM GRAN % (test code 2.10 % = 7003731951) LYMPH % (test code = 2.8 % 736-9) MONO % (test code = 1.4 % 5905-5) EOS % (test code = 0.0 % 713-8) BASO % (test code = 0.1 % 706-2) GRAN MAT x10^3(ANC) 17.50 10*3/uL 1.88-7.09 H (test code = 1598845219) IMM GRAN x10^3 (test 0.40 10*3/uL 0.00-0.06 H code = 7323608902) LYMPH x10^3 (test code 0.53 10*3/uL 1.32-3.29 L = 731-0) MONO x10^3 (test code 0.26 10*3/uL 0.33-0.92 L = 742-7) EOS x10^3 (test code = <0.03 0.03-0.39 L 711-2) BASO x10^3 (test code <0.03 0.01-0.07 = 704-7) TOXIC CHANGES (test Present A code = 803-7) Lab Interpretation Abnormal (test code = 05941-7) [facility] WITH [id number] 11:43:17 Test Item Value Reference Range Interpretation [...] RDW-SD (test code = 46.8 fL 39.0-49.9 35705-4) RDW-CV (test code = 14.6 % 12.0-15.5 788-0) PLT (test code = See_Comment H [Automated 777-3) message] The system which generated this result transmit britney reference range : 166 - 358 10*3/ ?L. The reference range was not u sed to interpret th is result as normal/abnormal . MPV (test code = 10.2 fL 9.5-12.9 11794-6) NRBC/100 WBC (test See_Comment [Automat ed code = 6283129418) message] The system which generated this result transmit britney reference range : 0.0 - 10.0 /100 WBCs. The reference range was not used to interpret this result as normal/abnormal . NRBC x10^3 (test code <0.01 See_Comment [Auto mated = 7627527400) message] The system which generated this result transmit britney reference range : 10*3/?L. The reference range was not used to interpret this result as normal/abnormal . GRAN MAT (NEUT) % 93.6 % (test code = 770-8) IMM GRAN % (test code 2.10 % = 0434458521) LYMPH % (test code = 2.8 % 736-9) MONO % (test code = 1.4 % 5905-5) EOS % (test code = 0.0 % 713-8) BASO % (test code = 0.1 % 706-2) GRAN MAT x10^3(ANC) 17.50 10*3/uL 1.88-7.09 H (test code = 3711593374) IMM GRAN x10^3 (test 0.40 10*3/uL 0.00-0.06 H code = 9831468505) LYMPH x10^3 (test code 0.53 10*3/uL 1.32-3.29 L = 731-0) MONO x10^3 (test code 0.26 10*3/uL 0.33-0.92 L = 742-7) EOS x10^3 (test code = <0.03 0.03-0.39 L 711-2) BASO x10^3 (test code <0.03 0.01-0.07 = 704-7) TOXIC CHANGES (test Present A code = 803-7) Lab Interpretation Abnormal (test code = 74586-9) [facility] METABOLIC PANEL (NA, K, CL, CO2, GLUCOSE, BUN, CREATININE, CA)2021-10-22 11:20:32 Test Item Value Reference Range Interpretation Comments NA (test code = 136 mmol/L 135-145 9588206350) K (test code = 4.3 mmol/L 3.5-5.0 9928909640) CL (test code = 103 mmol/L 98-108 1760087536) CO2 TOTAL (test code = 26 mmol/L 23-31 1313443429) AGAP (test code = 2-16 0571446182) BUN (test code = 18 mg/dL 7-23 1352028307) GLUCOSE (test code = 185 mg/dL 70-110 H 1255720967) CREATININE (test code = 0.69 mg/dL 0.50-1.04 6756901920) CALCIUM (test code = 7.9 mg/dL 8.6-10.6 L 1534514819) eGFR (test code = mL/min/1.73m2 9546353290) LUCILLE (test code = LUCILLE) Association of [...] tests). Lab Interpretation Abnormal (test code = 76229-9) [facility] 11:20:32 Test Item Value Reference Range Interpretation Comments MAGNESIUM (test code = 8796992843) 2.2 mg/dL 1.7-2.4 Lab Interpretation (test code = Normal 87262-0) [facility] (NA, K, CL, CO2, GLUCOSE, BUN, CREATININE, CA)2021-10-22 11:20:32 Test Item Value Reference Range Interpretation Comments NA (test code = 136 mmol/L 135-145 3849250644) K (test code = 4.3 mmol/L 3.5-5.0 8601539373) CL (test code = 103 mmol/L 98-108 6383095446) CO2 TOTAL (test code = 26 mmol/L 23-31 0983900761) AGAP (test code = 2-16 9715773928) BUN (test code = 18 mg/dL 7-23 2734052513) GLUCOSE (test code = 185 mg/dL 70-110 H 1880217894) CREATININE (test code = 0.69 mg/dL 0.50-1.04 2314101748) CALCIUM (test code = 7.9 mg/dL 8.6-10.6 L 8633924677) eGFR (test code = mL/min/1.73m2 4778728979) LUCILLE (test code = LUCILLE) Association of [...] tests). Lab Interpretation Abnormal (test code = 73160-8) [facility] 11:20:32 Test Item Value Reference Range Interpretation Comments MAGNESIUM (test code = 5071050753) 2.2 mg/dL 1.7-2.4 Lab Interpretation (test code = Normal 72794-3) [facility] CULTURE [id number] 23:01:06 Test Item Value Reference Range Interpretation Comments Blood Culture-Aerobic No organisms No growth Previo us (test code = 34199-9) isolated prelim inary verified result was Culture In Progress on 10/16/2021 at 20 02 CSTPrevious preliminary verified result was No growth a t 24 hours on 10/17/2021 at 17 01 CSTPrevious preliminary verified result was No growth a t 48 hours on 10/18/2021 at 17 01 CSTPrevious preliminary verified result was No growth a t 72 hours on 10/19/2021 at 17 02 [employer] Blood No organisms No growth Previous Culture-Anaerobic isolated preliminar y (test code = 93730-3) verifi ed result was Culture In Progress on 10/16/2021 at 20 02 CSTPrevious preliminary verified result was No growth a t 24 hours on 10/17/2021 at 17 01 CSTPrevious preliminary verified result was No growth a t 48 hours on 10/18/2021 at 17 01 CSTPrevious preliminary verified result was No growth a t 72 hours on 10/19/2021 at 17 02 [employer] Lab Interpretation Normal (test code = 47534-7) [facility] CULTURE [id number] 23:01:06 Test Item Value Reference Range Interpretation Comments Blood Culture-Aerobic No organisms No growth Previo us (test code = 25961-1) isolated prelim inary verified result was Culture In Progress on 10/16/2021 at 20 02 CSTPrevious preliminary verified result was No growth a t 24 hours on 10/17/2021 at 17 01 CSTPrevious preliminary verified result was No growth a t 48 hours on 10/18/2021 at 17 02 CSTPrevious preliminary verified result was No growth a t 72 hours on 10/19/2021 at 17 02 [employer] Blood No organisms No growth Previous Culture-Anaerobic isolated preliminar y (test code = 69024-6) verifi ed result was Culture In Progress on 10/16/2021 at 20 02 CSTPrevious preliminary verified result was No growth a t 24 hours on 10/17/2021 at 17 01 CSTPrevious preliminary verified result was No growth a t 48 hours on 10/18/2021 at 17 02 CSTPrevious preliminary verified result was No growth a t 72 hours on 10/19/2021 at 17 02 [employer] Lab Interpretation Normal (test code = 84523-0) [facility] CULTURE [id number] 23:01:06 Test Item Value Reference Range Interpretation Comments Blood Culture-Aerobic No organisms No growth Previo us (test code = 75296-6) isolated prelim inary verified result was Culture In Progress on 10/16/2021 at 20 02 CSTPrevious preliminary verified result was No growth a t 24 hours on 10/17/2021 at 17 01 CSTPrevious preliminary verified result was No growth a t 48 hours on 10/18/2021 at 17 01 CSTPrevious preliminary verified result was No growth a t 72 hours on 10/19/2021 at 17 02 [employer] Blood No organisms No growth Previous Culture-Anaerobic isolated preliminar y (test code = 51373-5) verifi ed result was Culture In Progress on 10/16/2021 at 20 02 CSTPrevious preliminary verified result was No growth a t 24 hours on 10/17/2021 at 17 01 CSTPrevious preliminary verified result was No growth a t 48 hours on 10/18/2021 at 17 01 CSTPrevious preliminary verified result was No growth a t 72 hours on 10/19/2021 at 17 02 [employer] Lab Interpretation Normal (test code = 54259-1) [facility] CULTURE [id number] 23:01:06 Test Item Value Reference Range Interpretation Comments Blood Culture-Aerobic No organisms No growth Previo us (test code = 34184-1) isolated prelim inary verified result was Culture In Progress on 10/16/2021 at 20 02 CSTPrevious preliminary verified result was No growth a t 24 hours on 10/17/2021 at 17 01 CSTPrevious preliminary verified result was No growth a t 48 hours on 10/18/2021 at 17 02 CSTPrevious preliminary verified result was No growth a t 72 hours on 10/19/2021 at 17 02 [employer] Blood No organisms No growth Previous Culture-Anaerobic isolated preliminar y (test code = 80216-9) verifi ed result was Culture In Progress on 10/16/2021 at 20 02 CSTPrevious preliminary verified result was No growth a t 24 hours on 10/17/2021 at 17 01 CSTPrevious preliminary verified result was No growth a t 48 hours on 10/18/2021 at 17 02 CSTPrevious preliminary verified result was No growth a t 72 hours on 10/19/2021 at 17 02 [employer] Lab Interpretation Normal (test code = 74153-8) [facility] LACTIC [id number] 20:42:21 Test Item Value Reference Range Interpretation Comments PH (test code = 2) 7.35-7.45 PCO2 (test code = See_Comment [Automate d 3254561742) message] The sy stem which generated this result transmitted reference range : 35 - 45 mmHg. The reference range was not used to interpret this result as normal/abnormal . PO2 (test code = See_Comment H [Automated 6825269806) message] The sy stem which generated this result transmitted reference range : 80 - 100 mmHg. The reference range was not used to interpret this result as normal/abnormal . HCO3 (test code = See_Comment [Automate d 9851730227) message] The sy stem which generated this result transmitted reference range : 22 - 26 mEq/L. The reference range was not used to interpret this result as normal/abnormal . BE (test code = See_Comment [Automated 9799755019) message] The sy stem which generated this result transmitted reference range : -3.0 - 3.0 mEq/ L. The reference r nicholas was not used to interpret this result as normal/abnormal . THB (test code = 12.1 g/dL 12.0-16.0 1566220533) %O2HB (test code = 99.5 % 94.0-99.0 H 7044054733) %COHB ART (test code = 0.1 % 0.0-1.5 9234409421) %METHB ART (test code = 0.1 % 0.4-1.5 L 9320756843) VOL%O2 ART (test code = 17.8 % 15.0-23.0 0099984935) NA (test code = 135 mmol/L 135-145 7229398621) K+ (test code = 4.3 mmol/L 3.5-5.0 0838402540) AC CA IONZ (test code = 4.50 mg/dL 4.50-5.30 0179613319) GLUCOSE (test code = 108 mg/dL 70-110 8259536472) LACTIC ACID (test code 2.19 mmol/L 0.50-2.20 = 3346231388) Lab Interpretation Abnormal (test code = 18851-3) [facility] + LACTIC [id number] 20:42:21 Test Item Value Reference Range Interpretation Comments PH (test code = 2) 7.35-7.45 PCO2 (test code = See_Comment [Automate d 8821894787) message] The sy stem which generated this result transmitted reference range : 35 - 45 mmHg. The reference range was not used to interpret this result as normal/abnormal . PO2 (test code = See_Comment H [Automated 0789469958) message] The sy stem which generated this result transmitted reference range : 80 - 100 mmHg. The reference range was not used to interpret this result as normal/abnormal . HCO3 (test code = See_Comment [Automate d 2070156447) message] The sy stem which generated this result transmitted reference range : 22 - 26 mEq/L. The reference range was not used to interpret this result as normal/abnormal . BE (test code = See_Comment [Automated 1003073012) message] The sy stem which generated this result transmitted reference range : -3.0 - 3.0 mEq/ L. The reference r nicholas was not used to interpret this result as normal/abnormal . THB (test code = 12.1 g/dL 12.0-16.0 2360803004) %O2HB (test code = 99.5 % 94.0-99.0 H 9495428110) %COHB ART (test code = 0.1 % 0.0-1.5 9454584367) %METHB ART (test code = 0.1 % 0.4-1.5 L 1878188896) VOL%O2 ART (test code = 17.8 % 15.0-23.0 3501839640) NA (test code = 135 mmol/L 135-145 9326854865) K+ (test code = 4.3 mmol/L 3.5-5.0 1129095429) AC CA IONZ (test code = 4.50 mg/dL 4.50-5.30 5725319620) GLUCOSE (test code = 108 mg/dL 70-110 5909807627) LACTIC ACID (test code 2.19 mmol/L 0.50-2.20 = 4215032663) Lab Interpretation Abnormal (test code = 70766-2) [facility] CON[facility] [id number] 20:19:53 Test Item Value Reference Range Interpretation Comments MELLY (test code = 28 U/L Performed B y: ARUP 2742-5) [address] [id number] Director: Korin Barillas MD [facility]IOTENS[facility] CONVERTING [id number] 20:19:53 Test Item Value Reference Range Interpretation Comments MELLY (test code = 28 U/L Performed B y: [facility]UP 2742-5) [address] [place] [address]Yyghpknize Director: Korin Barillas MD [facility] FLUID MANUAL [id number] 19:44:45 Test Item Value Reference Range Interpretation Comments BF SEGS% (test code = 93952-4) 2 % BF LYMPHS% (test code = 88600-2) 12 % BF MACROPHAGE% (test code = 72593-9) 86 % BF #CELLS CNTD (test code = 8790103032) cells/uL [facility] FLUID MANUAL [id number] 19:44:45 Test Item Value Reference Range Interpretation Comments BF SEGS% (test code = 77634-2) 2 % BF LYMPHS% (test code = 56650-0) 12 % BF MACROPHAGE% (test code = 38534-2) 86 % BF #CELLS CNTD (test code = 2691334368) cells/uL [facility] FLUID DIRECT [id number] 19:44:30 Test Item Value Reference Range Interpretation Comments BF COLOR Clear (test code = 8008833072) BF WBC Count See_Comment [Automated (test code = message] The sy stem 1124997057) which generated this result transmitted reference range : /?L. The refere nce range was not u sed to interpret th is result as normal/abnormal . BF RBC Count <3000 See_Comment [Automated (test code = message] The sy stem 9278959048) which generated this result transmitted reference range : /?L. The refere nce range was not u sed to interpret th is result as normal/abnormal . LUCILLE (test The reference range code = LUCILLE) and other method performance specifications have not been established for this body fluid. ?The test results must be integrated into the clinical context for interpretation. [facility] FL[facility] DIRECT [id number] 19:44:30 Test Item Value Reference Range Interpretation Comments BF COLOR Clear (test code = 2874320816) BF WBC Count See_Comment [Automated (test code = message] The sy stem 5639935004) which generated this result transmitted reference range : /?L. The refere nce range was not u sed to interpret th is result as normal/abnormal . BF RBC Count <3000 See_Comment [Automated (test code = message] The sy stem 6424052635) which generated this result transmitted reference range : /?L. The refere nce range was not u sed to interpret th is result as normal/abnormal . LUCILLE (test The reference range code = LUCILLE) and other method performance specifications have not been established for this body fluid. ?The test results must be integrated into the clinical context for interpretation. [facility] WITH [id number] 19:27:30 Test Item Value Reference Range Interpretation [...] RDW-SD (test code = 45.8 fL 39.0-49.9 48919-0) RDW-CV (test code = 14.4 % 12.0-15.5 788-0) PLT (test code = See_Comment H [Automated 777-3) message] The system which generated this result transmit britney reference range : 166 - 358 10*3/ ?L. The reference range was not u sed to interpret th is result as normal/abnormal . MPV (test code = 10.4 fL 9.5-12.9 59281-5) NRBC/100 WBC (test See_Comment [Automat ed code = 9749935880) message] The system which generated this result transmit britney reference range : 0.0 - 10.0 /100 WBCs. The reference range was not used to interpret this result as normal/abnormal . NRBC x10^3 (test code See_Comment [Auto mated = 5897038683) message] The system which generated this result transmit britney reference range : 10*3/?L. The reference range was not used to interpret this result as normal/abnormal . SEG % (test code = 84 % 33-76 H 54208-7) BAND % (test code = 8 % 0-1 H 53352-0) MYELO % (test code = 2 % See_Comment H [Autom ated 90891-9) message] The system which generated this result transmit britney reference range : <=0. The refere nce range was not u sed to interpret th is result as normal/abnormal . LYMPH % (test code = 4 % 14-54 L 77214-2) MONO % (test code = 2 % 0-4 75002-5) ANC (test code = 21.16 10*3/uL 1.88-7.09 H 753-4) Lab Interpretation Abnormal (test code = 08661-2) [facility] WITH [id number] 19:27:30 Test Item Value Reference Range Interpretation [...] RDW-SD (test code = 45.8 fL 39.0-49.9 60322-9) RDW-CV (test code = 14.4 % 12.0-15.5 788-0) PLT (test code = See_Comment H [Automated 777-3) message] The system which generated this result transmit britney reference range : 166 - 358 10*3/ ?L. The reference range was not u sed to interpret th is result as normal/abnormal . MPV (test code = 10.4 fL 9.5-12.9 24650-7) NRBC/100 WBC (test See_Comment [Automat ed code = 3853399068) message] The system which generated this result transmit britney reference range : 0.0 - 10.0 /100 WBCs. The reference range was not used to interpret this result as normal/abnormal . NRBC x10^3 (test code See_Comment [Auto mated = 1855822013) message] The system which generated this result transmit britney reference range : 10*3/?L. The reference range was not used to interpret this result as normal/abnormal . SEG % (test code = 84 % 33-76 H 26657-3) BAND % (test code = 8 % 0-1 H 04008-9) MYELO % (test code = 2 % See_Comment H [Autom ated 79011-3) message] The system which generated this result transmit britney reference range : <=0. The refere nce range was not u sed to interpret th is result as normal/abnormal . LYMPH % (test code = 4 % 14-54 L 44305-2) MONO % (test code = 2 % 0-4 30436-3) ANC (test code = 21.16 10*3/uL 1.88-7.09 H 753-4) Lab Interpretation Abnormal (test code = 33228-5) [facility] METABOLIC PANEL (NA, K, CL, CO2, GLUCOSE, BUN, CREATININE, CA)2021-10-21 19:20:26 Test Item Value Reference Range Interpretation Comments NA (test code = 125 mmol/L 135-145 L 0545810835) K (test code = 4.4 mmol/L 3.5-5.0 Slight 4250879576) hemolysis CL (test code = 98 mmol/L 98-108 3293940414) CO2 TOTAL (test code 19 mmol/L 23-31 L = 8889793766) AGAP (test code = 2-16 8422524572) BUN (test code = 21 mg/dL 7-23 Slight 5065682177) hemolysis GLUCOSE (test code = 155 mg/dL 70-110 H 2430391647) CREATININE (test code 0.63 mg/dL 0.50-1.04 = 5891662606) CALCIUM (test code = 6.9 mg/dL 8.6-10.6 L 5426518047) eGFR (test code = mL/min/1.73m2 5095121167) LUCILLE (test code = LUCILLE) Association of [...] tests). Lab Interpretation Abnormal (test code = 08115-1) [facility] (NA, K, CL, CO2, GLUCOSE, BUN, CREATININE, CA)2021-10-21 19:20:26 Test Item Value Reference Range Interpretation Comments NA (test code = 125 mmol/L 135-145 L 4685373455) K (test code = 4.4 mmol/L 3.5-5.0 Slight 6953540985) hemolysis CL (test code = 98 mmol/L 98-108 2164210842) CO2 TOTAL (test code 19 mmol/L 23-31 L = 3361655897) AGAP (test code = 2-16 0868466445) BUN (test code = 21 mg/dL 7-23 Slight 4864109213) hemolysis GLUCOSE (test code = 155 mg/dL 70-110 H 3467814222) CREATININE (test code 0.63 mg/dL 0.50-1.04 = 6390176395) CALCIUM (test code = 6.9 mg/dL 8.6-10.6 L 4479490601) eGFR (test code = mL/min/1.73m2 7404485028) LUCILLE (test code = LUCILLE) Association of [...] tests). Lab Interpretation Abnormal (test code = 35258-0) [facility] 19:12:03 Test Item Value Reference Range Interpretation Comments Fibrinogen (test code = 6862547960) 585 mg/dL 167-453 H Lab Interpretation (test code = Abnormal 96785-3) [facility] Renaissance[facility]OM[facility] / [id number] 19:12:03 Test Item Value Reference Range Interpretation Comments PROTIME PATIENT (test See_Comment H [Auto mated message] code = 5964-2) The system [facility] generated this result transmitted ref erence range: 10.1 - 1 2.6 Seconds. The reference range was not used to int erpret this result as normal/abnormal . INR (test code = 6301-6) Nor mal INR <1.1; Warfarin Therap eutic range 2.0 to 3. 0 or 2.5 to 3.5, dep ending upon the indica tions. Lab Interpretation (test Abnormal code = 23207-1) [facility]2022-[facility]-18 19:12:03 Test Item Value Reference Range Interpretation Comments Fibrinogen (test code = 6071485352) 585 mg/dL 167-453 H Lab Interpretation (test code = Abnormal 75220-0) [facility]HROM[facility] / [id number] 19:12:03 Test Item Value Reference Range Interpretation Comments PROTIME PATIENT (test See_Comment H [Auto mated message] code = 5964-2) The system [employer] generated this result transmitted ref erence range: 10.1 - 1 2.6 Seconds. The reference range was not used to int erpret this result as normal/abnormal . INR (test code = 6301-6) Nor mal INR <1.1; Warfarin Therap eutic range 2.0 to 3. 0 or 2.5 to 3.5, dep ending upon the indica tions. Lab Interpretation (test Abnormal code = 49263-4) [facility] [id number] 04:54:18 Test Item Value Reference Range Interpretation Comments URIC ACID (test code = 7455659240) 4.3 mg/dL 2.9-6.0 Lab Interpretation (test code = Normal 15392-0) [facility] [id number] 04:54:18 Test Item Value Reference Range Interpretation Comments URIC ACID (test code = 4379105256) 4.3 mg/dL 2.9-6.0 Lab Interpretation (test code = Normal 47248-8) [facility]an[facility] (TTE)2021-10-20 20:54:06 Test Item Value Reference Range Interpretation Comments EF(Teich) (test code = 63.80 % 8514419527) LVIDD (test code = 4.40 cm 3164165338) LVIDS (test code = 2.90 cm 8009103534) IVS (test code = 0.86 cm 6741429140) LVPWD (test code = 0.86 cm 1740102903) LVOT diameter (test code 2.00 cm = 1035303197) FS (test code = 35 % 8220941339) LA size (test code = 3.4 cm 1692455469) LAV(MOD-sp4) (test code = 41.40 mL 9576208570) Ao root annulus (test 2.44 cm code = 9630215868) Ao root diam (test code = 2.44 cm 5646770415) Aortic root (test code = 2.44 cm 3666862312) PW (test code = 0.86 cm 0.6-1.2 3319272575) EF - 2D (test code = 63.80 % 69670955) Interventricular Septum 0.86 cm Diastolic Thickness by 2D (test code = 0698135) Radiology Study observation (narrative) (test code = 74751-7) LUCILLE (test code = LUCILLE) ?Left?Ventricle: Left ventricle is normal in size and function. Normal wall thickness. Normal systolic function with a visually estimated EF of 55 - 60%. ?Aortic?Valve: Aortic valve is normal in structure and function. ?Mitral?Valve: Mitral valve is normal in structure and function. VitalsHeight Weight BSA (Calculated - sq m) BP Pulse 60 220lb ? ?114/63 81 [facility] 20:54:06 Test Item Value Reference Range Interpretation Comments EF(Teich) (test code = 63.80 % 3438768833) LVIDD (test code = 4.40 cm 6094924466) LVIDS (test code = 2.90 cm 9267407121) IVS (test code = 0.86 cm 0816667044) LVPWD (test code = 0.86 cm 3867646641) LVOT diameter (test code 2.00 cm = 4942824966) FS (test code = 35 % 1792928579) LA size (test code = 3.4 cm 4865966113) LAV(MOD-sp4) (test code = 41.40 mL 1667527748) Ao root annulus (test 2.44 cm code = 1536682667) Ao root diam (test code = 2.44 cm 2750951145) Aortic root (test code = 2.44 cm 2040834812) PW (test code = 0.86 cm 0.6-1.0 0058797311) EF - 2D (test code = 63.80 % 06895120) Interventricular Septum 0.86 cm Diastolic Thickness by 2D (test code = 5151378) Radiology Study observation (narrative) (test code = 48749-6) LUCILLE (test code = LUCILLE) ?Left?Ventricle: Left ventricle is normal in size and function. Normal wall thickness. Normal systolic function with a visually estimated EF of 55 - 60%. ?Aortic?Valve: Aortic valve is normal in structure and function. ?Mitral?Valve: Mitral valve is normal in structure and function. VitalsHeight Weight BSA (Calculated - sq m) BP Pulse 60 220lb ? ?114/63 81 [facility] WITH [id number] 11:09:20 Test Item Value Reference Range Interpretation [...] RDW-SD (test code = 46.3 fL 39.0-49.9 69692-4) RDW-CV (test code = 14.5 % 12.0-15.5 788-0) PLT (test code = See_Comment [Automated 777-3) message] The system which generated this result transmit britney reference range : 166 - 358 10*3/ ?L. The reference range was not u sed to interpret th is result as normal/abnormal . MPV (test code = 9.9 fL 9.5-12.9 13391-4) NRBC/100 WBC (test See_Comment [Automat ed code = 1203588442) message] The system which generated this result transmit britney reference range : 0.0 - 10.0 /100 WBCs. The reference range was not used to interpret this result as normal/abnormal . NRBC x10^3 (test code <0.01 See_Comment [Auto mated = 7731136175) message] The system which generated this result transmit britney reference range : 10*3/?L. The reference range was not used to interpret this result as normal/abnormal . GRAN MAT (NEUT) % 89.9 % (test code = 770-8) IMM GRAN % (test code 2.90 % = 3991505591) LYMPH % (test code = 4.2 % 736-9) MONO % (test code = 2.9 % 5905-5) EOS % (test code = 0.0 % 713-8) BASO % (test code = 0.1 % 706-2) GRAN MAT x10^3(ANC) 14.51 10*3/uL 1.88-7.09 H (test code = 9378544773) IMM GRAN x10^3 (test 0.46 10*3/uL 0.00-0.06 H code = 1170932723) LYMPH x10^3 (test code 0.67 10*3/uL 1.32-3.29 L = 731-0) MONO x10^3 (test code 0.47 10*3/uL 0.33-0.92 = 742-7) EOS x10^3 (test code = <0.03 0.03-0.39 L 711-2) BASO x10^3 (test code <0.03 0.01-0.07 = 704-7) TOXIC CHANGES (test Present A code = 803-7) Lab Interpretation Abnormal (test code = 50134-2) [facility] WITH [id number] 11:09:20 Test Item Value Reference Range Interpretation Comments WBC (test code = See_Comment H [Automated 7290-2) message] The system which generated this result transmit britney reference range : 4.30 - 11.10 10*3/?L. The reference range was not used to interpret this result as normal/abnormal . RBC (test code = See_Comment L [Automated 449-8) message] The system which generated this result [...] RDW-SD (test code = 46.3 fL 39.0-49.9 50351-2) RDW-CV (test code = 14.5 % 12.0-15.5 788-0) PLT (test code = See_Comment [Automated 777-3) message] The system which generated this result transmit britney reference range : 166 - 358 10*3/ ?L. The reference range was not u sed to interpret th is result as normal/abnormal . MPV (test code = 9.9 fL 9.5-12.9 94867-9) NRBC/100 WBC (test See_Comment [Automat ed code = 0112023253) message] The system which generated this result transmit britney reference range : 0.0 - 10.0 /100 WBCs. The reference range was not used to interpret this result as normal/abnormal . NRBC x10^3 (test code <0.01 See_Comment [Auto mated = 7199935781) message] The system which generated this result transmit britney reference range : 10*3/?L. The reference range was not used to interpret this result as normal/abnormal . GRAN MAT (NEUT) % 89.9 % (test code = 770-8) IMM GRAN % (test code 2.90 % = 0239597627) LYMPH % (test code = 4.2 % 736-9) MONO % (test code = 2.9 % 5905-5) EOS % (test code = 0.0 % 713-8) BASO % (test code = 0.1 % 706-2) GRAN MAT x10^3(ANC) 14.51 10*3/uL 1.88-7.09 H (test code = 8938000078) IMM GRAN x10^3 (test 0.46 10*3/uL 0.00-0.06 H code = 2720580468) LYMPH x10^3 (test code 0.67 10*3/uL 1.32-3.29 L = 731-0) MONO x10^3 (test code 0.47 10*3/uL 0.33-0.92 = 742-7) EOS x10^3 (test code = <0.03 0.03-0.39 L 711-2) BASO x10^3 (test code <0.03 0.01-0.07 = 704-7) TOXIC CHANGES (test Present A code = 803-7) Lab Interpretation Abnormal (test code = 06069-0) [facility] METABOLIC PANEL (NA, K, CL, CO2, GLUCOSE, BUN, CREATININE, CA)2021-10-20 10:55:22 Test Item Value Reference Range Interpretation Comments NA (test code = 136 mmol/L 135-145 7032500263) K (test code = 4.1 mmol/L 3.5-5.0 4100116133) CL (test code = 108 mmol/L 98-108 0592555410) CO2 TOTAL (test code = 25 mmol/L 23-31 5984312236) AGAP (test code = 2-16 4613180679) BUN (test code = 23 mg/dL 7-23 7412534295) GLUCOSE (test code = 134 mg/dL 70-110 H 7892381271) CREATININE (test code = 0.67 mg/dL 0.50-1.04 6300667717) CALCIUM (test code = 7.5 mg/dL 8.6-10.6 L 8239852943) eGFR (test code = mL/min/1.73m2 3159905083) LUCILLE (test code = LUCILLE) Association of [...] tests). Lab Interpretation Abnormal (test code = 55193-0) [facility] METABOLIC PANEL (NA, K, CL, CO2, GLUCOSE, BUN, CREATININE, CA)2021-10-20 10:55:22 Test Item Value Reference Range Interpretation Comments NA (test code = 136 mmol/L 135-145 0348309350) K (test code = 4.1 mmol/L 3.5-5.0 4600168762) CL (test code = 108 mmol/L 98-108 2326859312) CO2 TOTAL (test code = 25 mmol/L 23-31 5258098265) AGAP (test code = 2-16 1230219589) BUN (test code = 23 mg/dL 7-23 6820409117) GLUCOSE (test code = 134 mg/dL 70-110 H 8279169280) CREATININE (test code = 0.67 mg/dL 0.50-1.04 8929736962) CALCIUM (test code = 7.5 mg/dL 8.6-10.6 L 7944367576) eGFR (test code = mL/min/1.73m2 9971527933) LUCILLE (test code = LUCILLE) Association of [...] tests). Lab Interpretation Abnormal (test code = 08864-7) [facility] [id number] 21:49:45 Test Item Value Reference Range Interpretation Comments ANTI-DSDNA (test code See_Comment [Auto mated = 8172894435) message] The system which generated this result transmit britney reference range : 0.0 - 4.0 IU/mL . The reference range was not u sed to interpret th is result as normal/abnormal . LUCILLE (test code = LUCILLE) Negative ? ?< or = 4 IU/mLPositive ? ? ?> or = 10 IU/mLIndetermin ate ?5-9 IU/mL Lab Interpretation Normal (test code = 29368-3) [facility] [id number] 21:49:45 Test Item Value Reference Range Interpretation Comments ANTI-DSDNA (test code See_Comment [Auto mated = 7439078910) message] The system which generated this result transmit britney reference range : 0.0 - 4.0 IU/mL . The reference range was not u sed to interpret th is result as normal/abnormal . LUCILLE (test code = LUCILLE) Negative ? ?< or = 4 IU/mLPositive ? ? ?> or = 10 IU/mLIndetermin ate ?5-9 IU/mL Lab Interpretation Normal (test code = 94941-5[id number] Test Item Value Reference Range Interpretation Comments RF (test code = <20 See_Comment [Automated message] 2951377133) The system [employer] generated this result transmitted ref erence range: <20 IU/m L. The reference range was not used to int erpret this result as normal/abnormal . Lab Interpretation (test Normal code = 32829-8) [id number] 21:43:06 Test Item Value Reference Range Interpretation Comments RF (test code = <20 See_Comment [Automated message] 3528967168) The system [employer] generated this result transmitted ref erence range: <20 IU/m L. The reference range was not used to int erpret this result as normal/abnormal . Lab Interpretation (test Normal code = 85764-4) [facility] [id number] 20:22:55 Test Item Value Reference Range Interpretation Comments SHIRA Titer by IFA <=1:80 (test code = 4874696338) SHIRA Pattern (test SHIRA screen was positive code = 8982920718) at the 1:80 dilution but with low [...] specimen will be held for 7 days. [facility] [id number] 20:22:55 Test Item Value Reference Range Interpretation Comments SHIRA Titer by IFA <=1:80 (test code = 3086550840) SHIRA Pattern (test SHIRA screen was positive code = 6306776985) at the 1:80 dilution but with low [...] specimen will be held for 7 days. [facility] [id number] 18:12:04 Test Item Value Reference Range Interpretation Comments Myeloperoxidase (MPO) Negative Negative Antibodies, IgG Interpretation (test code = 09951-8) Proteinase 3 (PR3) Negative Negative Antibodies, IgG Interpretation (test code = 38980-4) Myeloperoxidase (MPO) <0.3 See_Comment [Auto mated Antibodies, IgG (test messag e] The code = 9531864762) system [facility] generated this result transmitted reference range : <=3.5 U/mL. The reference range was not used to interpret this result as normal/abnormal . Proteinase 3 (PR3) <0.7 See_Comment [Automat ed Antibodies, IgG (test messag e] The code = 0090094953) system [facility] generated this result transmitted reference range [...] weeks. Lab Interpretation Normal (test code = 29033-4) [facility] [id number] 18:12:04 Test Item Value Reference Range Interpretation Comments Myeloperoxidase (MPO) Negative Negative Antibodies, IgG Interpretation (test code = 04114-4) Proteinase 3 (PR3) Negative Negative Antibodies, IgG Interpretation (test code = 36208-6) Myeloperoxidase (MPO) <0.3 See_Comment [Auto mated Antibodies, IgG (test messag e] The code = 4771068667) system [facility] generated this result transmitted reference range : <=3.5 U/mL. The reference range was not used to interpret this result as normal/abnormal . Proteinase 3 (PR3) <0.7 See_Comment [Automat ed Antibodies, IgG (test messag e] The code = 0709422395) system wh ich generated this result transmitted reference range : [...] weeks. Lab Interpretation Normal (test code = 59192-6) [facility] Test Item Value Reference Range Interpretation Comments MAGNESIUM (test code = 0485264407) 2.9 mg/dL 1.7-2.4 H Lab Interpretation (test code = Abnormal 70999-6) [facility] 10:47[facility]40 Test Item Value Reference Range Interpretation Comments MAGNESIUM (test code = 7430513723) 2.9 mg/dL 1.7-2.4 H Lab Interpretation (test code = Abnormal 88011-0) [facility] WITH [id number] 09:31:49 Test Item Value Reference Range Interpretation Comments WBC (test code = See_Comment H [Automated 7490-2) message] The system which generated this result transmit britney reference range : 4.30 - 11.10 10*3/?L. The reference range was not used to interpret this result as normal/abnormal . RBC (test code = See_Comment L [Automated 149-8) message] The system which generated this result [...] RDW-SD (test code = 45.5 fL 39.0-49.9 02102-4) RDW-CV (test code = 14.4 % 12.0-15.5 788-0) PLT (test code = See_Comment [Automated 777-3) message] The system which generated this result transmit britney reference range : 166 - 358 10*3/ ?L. The reference range was not u sed to interpret th is result as normal/abnormal . MPV (test code = 10.0 fL 9.5-12.9 31617-9) NRBC/100 WBC (test See_Comment [Automat ed code = 6506063963) message] The system which generated this result transmit britney reference range : 0.0 - 10.0 /100 WBCs. The reference range was not used to interpret this result as normal/abnormal . NRBC x10^3 (test code <0.01 See_Comment [Auto mated = 6070630081) message] The system which generated this result transmit britney reference range : 10*3/?L. The reference range was not used to interpret this result as normal/abnormal . GRAN MAT (NEUT) % 93.4 % (test code = 770-8) IMM GRAN % (test code 1.50 % = 2329725847) LYMPH % (test code = 2.4 % 736-9) MONO % (test code = 2.6 % 5905-5) EOS % (test code = 0.0 % 713-8) BASO % (test code = 0.1 % 706-2) GRAN MAT x10^3(ANC) 17.74 10*3/uL 1.88-7.09 H (test code = 9533528307) IMM GRAN x10^3 (test 0.28 10*3/uL 0.00-0.06 H code = 0394135082) LYMPH x10^3 (test code 0.46 10*3/uL 1.32-3.29 L = 731-0) MONO x10^3 (test code 0.50 10*3/uL 0.33-0.92 = 742-7) EOS x10^3 (test code = <0.03 0.03-0.39 L 711-2) BASO x10^3 (test code <0.03 0.01-0.07 = 704-7) TOXIC CHANGES (test Present A code = 803-7) Lab Interpretation Abnormal (test code = 16365-9) [facility] WITH [id number] 09:31:49 Test Item Value Reference Range Interpretation Comments WBC (test code = See_Comment H [Automated 8685-2) message] The system which generated this result transmit britney reference range : 4.30 - 11.10 10*3/?L. The reference range was not used to interpret this result as normal/abnormal . RBC (test code = See_Comment L [Automated 579-8) message] The system which generated this result [...] RDW-SD (test code = 45.5 fL 39.0-49.9 26069-4) RDW-CV (test code = 14.4 % 12.0-15.5 788-0) PLT (test code = See_Comment [Automated 777-3) message] The system which generated this result transmit britney reference range : 166 - 358 10*3/ ?L. The reference range was not u sed to interpret th is result as normal/abnormal . MPV (test code = 10.0 fL 9.5-12.9 65372-0) NRBC/100 WBC (test See_Comment [Automat ed code = 3992592591) message] The system which generated this result transmit britney reference range : 0.0 - 10.0 /100 WBCs. The reference range was not used to interpret this result as normal/abnormal . NRBC x10^3 (test code <0.01 See_Comment [Auto mated = 0176482726) message] The system which generated this result transmit britney reference range : 10*3/?L. The reference range was not used to interpret this result as normal/abnormal . GRAN MAT (NEUT) % 93.4 % (test code = 770-8) IMM GRAN % (test code 1.50 % = 0760268017) LYMPH % (test code = 2.4 % 736-9) MONO % (test code = 2.6 % 5905-5) EOS % (test code = 0.0 % 713-8) BASO % (test code = 0.1 % 706-2) GRAN MAT x10^3(ANC) 17.74 10*3/uL 1.88-7.09 H (test code = 4129674263) IMM GRAN x10^3 (test 0.28 10*3/uL 0.00-0.06 H code = 4163361082) LYMPH x10^3 (test code 0.46 10*3/uL 1.32-3.29 L = 731-0) MONO x10^3 (test code 0.50 10*3/uL 0.33-0.92 = 742-7) EOS x10^3 (test code = <0.03 0.03-0.39 L 711-2) BASO x10^3 (test code <0.03 0.01-0.07 = 704-7) TOXIC CHANGES (test Present A code = 803-7) Lab Interpretation Abnormal (test code = 45502-3) [facility] METABOLIC PANEL (NA, K, CL, CO2, GLUCOSE, BUN, CREATININE, CA)2021-10-19 09:25:48 Test Item Value Reference Range Interpretation Comments NA (test code = 144 mmol/L 135-145 8502614644) K (test code = 4.5 mmol/L 3.5-5.0 5441961213) CL (test code = 111 mmol/L 98-108 H 9813759817) CO2 TOTAL (test code = 27 mmol/L 23-31 9969553635) AGAP (test code = 2-16 8027003331) BUN (test code = 30 mg/dL 7-23 H 6296821455) GLUCOSE (test code = 159 mg/dL 70-110 H 1084135802) CREATININE (test code = 0.81 mg/dL 0.50-1.04 2207585580) CALCIUM (test code = 8.2 mg/dL 8.6-10.6 L 4058311776) eGFR (test code = mL/min/1.73m2 7752564826) LUCILLE (test code = LUCILLE) Association of [...] tests). Lab Interpretation Abnormal (test code = 68324-2) [facility] METABOLIC PANEL (NA, K, CL, CO2, GLUCOSE, BUN, CREATININE, CA)2021-10-19 09:25:48 Test Item Value Reference Range Interpretation Comments NA (test code = 144 mmol/L 135-145 9312167043) K (test code = 4.5 mmol/L 3.5-5.0 7608927157) CL (test code = 111 mmol/L 98-108 H 9542397591) CO2 TOTAL (test code = 27 mmol/L 23-31 5413059505) AGAP (test code = 2-16 8088876780) BUN (test code = 30 mg/dL 7-23 H 9141664581) GLUCOSE (test code = 159 mg/dL 70-110 H 8169533471) CREATININE (test code = 0.81 mg/dL 0.50-1.04 3671513201) CALCIUM (test code = 8.2 mg/dL 8.6-10.6 L 0932154991) eGFR (test code = mL/min/1.73m2 5949656385) LUCILLE (test code = LUCILLE) Association of [...] tests). Lab Interpretation Abnormal (test code = 49775-0) [facility] GLUCOSE (AUTOMATED)2021-10-19 02:29:39 Test Item Value Reference Range Interpretation Comments POCT GLU (test code = 2131155265) 159 mg/dL 70-110 H Lab Interpretation (test code = Abnormal 49480-0) [facility] GLUCOSE (AUTOMATED)2021-10-19 02:29:39 Test Item Value Reference Range Interpretation Comments POCT GLU (test code = 4572624989) 159 mg/dL 70-110 H Lab Interpretation (test code = Abnormal 25731-0) [facility] [id number] 22:06:05 Test Item Value Reference Range Interpretation Comments SHIRA (test code = Positive Negative A 8857090688) LUCILLE (test code = LUCILLE) Negative - No Anti-Nuclear Antibodies detected by IFA.Positive - SHIRA IFA screen performed with a 1:80 dilution in adults and a 1:40 dilution in pediatrics. Any SHIRA "Positive" will have titer performed and reported separately. Lab Interpretation (test Abnormal code = 39756-4) [facility] [id number] 22:06:05 Test Item Value Reference Range Interpretation Comments SHIRA (test code = Positive Negative A 9290125577) LUCILLE (test code = LUCILLE) Negative - No Anti-Nuclear Antibodies detected by IFA.Positive - SHIRA IFA screen performed with a 1:80 dilution in adults and a 1:40 dilution in pediatrics. Any SHIRA "Positive" will have titer performed and reported separately. Lab Interpretation (test Abnormal code = 30619-8) [facility]2021-10-18 17:16:16 Test Item Value Reference Range Interpretation Comments HGB A1C (test code = 6.0 % 4.0-5.7 H 4548-4) LUCILLE (test code = LUCILLE) Reference RangesNormal: <5.7%Prediabetes: 5.7 - 6.4%Diabetes: > 6.5% Lab Interpretation (test Abnormal code = 25095-4) [facility]2021-10-18 17:16:16 Test Item Value Reference Range Interpretation Comments HGB A1C (test code = 6.0 % 4.0-5.7 H 4548-4) LUCILLE (test code = LUCILLE) Reference RangesNormal: <5.7%Prediabetes: 5.7 - 6.4%Diabetes: > 6.5% Lab Interpretation (test Abnormal code = 36866-3) [facility] WITH [id number] 10:21:29 Test Item Value Reference Range Interpretation [...] RDW-SD (test code = 44.0 fL 39.0-49.9 47737-8) RDW-CV (test code = 14.1 % 12.0-15.5 788-0) PLT (test code = See_Comment [Automated 777-3) message] The system which generated this result transmit britney reference range : 166 - 358 10*3/ ?L. The reference range was not u sed to interpret th is result as normal/abnormal . MPV (test code = 10.5 fL 9.5-12.9 71121-3) NRBC/100 WBC (test See_Comment [Automat ed code = 1317682477) message] The system which generated this result transmit britney reference range : 0.0 - 10.0 /100 WBCs. The reference range was not used to interpret this result as normal/abnormal . NRBC x10^3 (test code <0.01 See_Comment [Auto mated = 8207141043) message] The system which generated this result transmit britney reference range : 10*3/?L. The reference range was not used to interpret this result as normal/abnormal . GRAN MAT (NEUT) % 94.3 % (test code = 770-8) IMM GRAN % (test code 1.00 % = 6190004876) LYMPH % (test code = 2.1 % 736-9) MONO % (test code = 2.5 % 5905-5) EOS % (test code = 0.0 % 713-8) BASO % (test code = 0.1 % 706-2) GRAN MAT x10^3(ANC) 18.69 10*3/uL 1.88-7.09 H (test code = 4417464471) IMM GRAN x10^3 (test 0.20 10*3/uL 0.00-0.06 H code = 8432151590) LYMPH x10^3 (test code 0.42 10*3/uL 1.32-3.29 L = 731-0) MONO x10^3 (test code 0.50 10*3/uL 0.33-0.92 = 742-7) EOS x10^3 (test code = <0.03 0.03-0.39 L 711-2) BASO x10^3 (test code <0.03 0.01-0.07 = 704-7) TOXIC CHANGES (test Present A code = 803-7) Lab Interpretation Abnormal (test code = 56093-7) [facility] WITH [id number] 10:21:29 Test Item Value Reference Range Interpretation Comments WBC (test code = See_Comment H [Automated 7790-2) message] The system which generated this result transmit britney reference range : 4.30 - 11.10 10*3/?L. The reference range was not used to interpret this result as normal/abnormal . RBC (test code = See_Comment L [Automated 569-8) message] The system which generated this result [...] RDW-SD (test code = 44.0 fL 39.0-49.9 30666-3) RDW-CV (test code = 14.1 % 12.0-15.5 788-0) PLT (test code = See_Comment [Automated 777-3) message] The system which generated this result transmit britney reference range : 166 - 358 10*3/ ?L. The reference range was not u sed to interpret th is result as normal/abnormal . MPV (test code = 10.5 fL 9.5-12.9 19228-9) NRBC/100 WBC (test See_Comment [Automat ed code = 6652457465) message] The system which generated this result transmit britney reference range : 0.0 - 10.0 /100 WBCs. The reference range was not used to interpret this result as normal/abnormal . NRBC x10^3 (test code <0.01 See_Comment [Auto mated = 6833559223) message] The system which generated this result transmit britney reference range : 10*3/?L. The reference range was not used to interpret this result as normal/abnormal . GRAN MAT (NEUT) % 94.3 % (test code = 770-8) IMM GRAN % (test code 1.00 % = 9747767275) LYMPH % (test code = 2.1 % 736-9) MONO % (test code = 2.5 % 5905-5) EOS % (test code = 0.0 % 713-8) BASO % (test code = 0.1 % 706-2) GRAN MAT x10^3(ANC) 18.69 10*3/uL 1.88-7.09 H (test code = 3850458105) IMM GRAN x10^3 (test 0.20 10*3/uL 0.00-0.06 H code = 4895529979) LYMPH x10^3 (test code 0.42 10*3/uL 1.32-3.29 L = 731-0) MONO x10^3 (test code 0.50 10*3/uL 0.33-0.92 = 742-7) EOS x10^3 (test code = <0.03 0.03-0.39 L 711-2) BASO x10^3 (test code <0.03 0.01-0.07 = 704-7) TOXIC CHANGES (test Present A code = 803-7) Lab Interpretation Abnormal (test code = 00684-7) [facility] METABOLIC PANEL (NA, K, CL, CO2, GLUCOSE, BUN, CREATININE, CA)2021-10-18 09:49:57 Test Item Value Reference Range Interpretation Comments NA (test code = 141 mmol/L 135-145 2442339301) K (test code = 4.9 mmol/L 3.5-5.0 6808256776) CL (test code = 107 mmol/L 98-108 6954350803) CO2 TOTAL (test code = 26 mmol/L 23-31 3752741635) AGAP (test code = 2-16 3778132252) BUN (test code = 30 mg/dL 7-23 H 2901376860) GLUCOSE (test code = 166 mg/dL 70-110 H 4418710731) CREATININE (test code = 0.76 mg/dL 0.50-1.04 0471941240) CALCIUM (test code = 8.2 mg/dL 8.6-10.6 L 2163434038) eGFR (test code = mL/min/1.73m2 1023862449) LUCILLE (test code = LUCILLE) Association of [...] tests). Lab Interpretation Abnormal (test code = 20118-9) [facility] 09:[facility]:57 Test Item Value Reference Range Interpretation Comments MAGNESIUM (test code = 1704036635) 3.0 mg/dL 1.7-2.4 H Lab Interpretation (test code = Abnormal 09145-8) [facility] 09:49:57 Test Item Value Reference Range Interpretation Comments PHOSPHORUS (test code = 8882148525) 4.0 mg/dL 2.5-5.0 Lab Interpretation (test code = Normal 05837-0) [facility] (NA, K, CL, CO2, GLUCOSE, BUN, CREATININE, CA)2021-10-18 09:49:57 Test Item Value Reference Range Interpretation Comments NA (test code = 141 mmol/L 135-145 [id number]) K (test code = 4.9 mmol/L 3.5-5.0 [id number]) CL (test code = 107 mmol/L 98-108 [id number]) CO2 TOTAL (test code = 26 mmol/L 23-31 4770223968) AGAP (test code = 2-16 [id number]) BUN (test code = 30 mg/dL 7-23 H [id number]) GLUCOSE (test code = 166 mg/dL 70-110 H [id number]) CREATININE (test code = 0.76 mg/dL 0.50-1.04 [id number]) CALCIUM (test code = 8.2 mg/dL 8.6-10.6 L 6860349543) eGFR (test code = mL/min/1.73m2 9064705970) LUCILLE (test code = LUCILLE) Association of [...] tests). Lab Interpretation Abnormal (test code = 80904-0) [facility]57 Test Item Value Reference Range Interpretation Comments MAGNESIUM (test code = 7126466681) 3.0 mg/dL 1.7-2.4 H Lab Interpretation (test code = Abnormal 89308-0) [facility] 09:49:57 Test Item Value Reference Range Interpretation Comments PHOSPHORUS (test code = 1733309276) 4.0 mg/dL 2.5-5.0 Lab Interpretation (test code = Normal 78915-2) [facility] 1/2 AG-AB WITH [id number] 02:31:06 Test Item Value Reference Range Interpretation Comments HIV Negative Negative Semi-quantitative (test code = 82109-5) LUCILLE (test code = Non-reactive for HIV-1 LUCILLE) antigen and HIV-1/HIV-2 antibodies. ?No laboratory evidence of HIV infection. ?Repeat in 2-4 weeks if acute HIV infection is suspected. [facility] 1/2 AG-AB WITH [id number] 02:31:06 Test Item Value Reference Range Interpretation Comments HIV Negative Negative Semi-quantitative (test code = 04979-5) LUCILLE (test code = Non-reactive for HIV-1 LUCILLE) antigen and HIV-1/HIV-2 antibodies. ?No laboratory evidence of HIV infection. ?Repeat in 2-4 weeks if acute HIV infection is suspected. [facility] METABOLIC PANEL (NA, K, CL, CO2, GLUCOSE, BUN, CREATININE, CA)2021-10-18 01:11:26 Test Item Value Reference Range Interpretation Comments NA (test code = 141 mmol/L 135-145 8799419880) K (test code = 4.6 mmol/L 3.5-5.0 9905788738) CL (test code = 106 mmol/L 98-108 4094430428) CO2 TOTAL (test code = 26 mmol/L 23-31 1850768885) AGAP (test code = 2-16 9011361695) BUN (test code = 28 mg/dL 7-23 H 2020218704) GLUCOSE (test code = 180 mg/dL 70-110 H 5889903385) CREATININE (test code = 0.82 mg/dL 0.50-1.04 0242161994) CALCIUM (test code = 8.3 mg/dL 8.6-10.6 L 9231950191) eGFR (test code = mL/min/1.73m2 8641039610) LUCILLE (test code = LUCILLE) Association of [...] tests). Lab Interpretation Abnormal (test code = 02565-0) [facility] METABOLIC PANEL (NA, K, CL, CO2, GLUCOSE, BUN, CREATININE, CA)2021-10-18 01:11:26 Test Item Value Reference Range Interpretation Comments NA (test code = 141 mmol/L 135-145 8822241768) K (test code = 4.6 mmol/L 3.5-5.0 1113077513) CL (test code = 106 mmol/L 98-108 8758966785) CO2 TOTAL (test code = 26 mmol/L 23-31 1139040122) AGAP (test code = 2-16 3407497652) BUN (test code = 28 mg/dL 7-23 H 3855707674) GLUCOSE (test code = 180 mg/dL 70-110 H 5835600931) CREATININE (test code = 0.82 mg/dL 0.50-1.04 1418828196) CALCIUM (test code = 8.3 mg/dL 8.6-10.6 L 5330262819) eGFR (test code = mL/min/1.73m2 8182765342) LUCILLE (test code = LUCILLE) Association of [...] tests). Lab Interpretation Abnormal (test code = 94424-7) [id number] 22:06:03 Test Item Value Reference Range Interpretation Comments NT-proBNP (test code 250 pg/mL See_Comment H [Autom ated = 3542184978) message] The system which generated this result transmitted reference range : <=125. The reference range was not used to interpret this result as normal/abnormal . LUCILLE (test code = LUCILLE) Biotin has been reported to cause a negative bias, interpret results relative to patient's use of biotin. Lab Interpretation Abnormal (test code = 99086-9) [id number] 22:06:03 Test Item Value Reference Range Interpretation Comments NT-proBNP (test code 250 pg/mL See_Comment H [Autom ated = 7457166107) message] The system which generated this result transmitted reference range : <=125. The reference range was not used to interpret this result as normal/abnormal . LUCILLE (test code = LUCILLE) Biotin has been reported to cause a negative bias, interpret results relative to patient's use of biotin. Lab Interpretation Abnormal (test code = 43916-7) [facility]K+GLU+CA2+2021-10-17 21:42:22 Test Item Value Reference Range Interpretation Comments PH (test code = 2) 7.35-7.45 PCO2 (test code = See_Comment [Automate d message] 8403645519) The system [employer] generated this result transmit britney reference range : 35 - 45 mmHg. The reference range was not used to interpret this result as normal/abnormal . PO2 (test code = See_Comment H [Automated message] 1843454671) The system [employer] generated this result transmit britney reference range : 80 - 100 mmHg. The reference range was not used to interpret this result as normal/abnormal . HCO3 (test code = See_Comment [Automate d message] 5028509787) The system [employer] generated this result transmit britney reference range : 22 - 26 mEq/L. The reference range was not used to interpret this result as normal/abnormal . BE (test code = See_Comment [Automated message] 3867087437) The system [employer] generated this result transmit britney reference range : -3.0 - 3.0 mEq/ L. The reference r nicholas was not used to interpret this result as normal/abnormal . THB (test code = 13.0 g/dL 12.0-16.0 5333105780) %O2HB (test code = 98.9 % 94.0-99.0 9789659904) %COHB ART (test code = 0.3 % 0.0-1.5 8228757940) %METHB ART (test code = 0.0 % 0.4-1.5 L 9812760038) VOL%O2 ART (test code = 18.5 % 15.0-23.0 8259803186) NA (test code = 139 mmol/L 135-145 2549498300) K+ (test code = 4.6 mmol/L 3.5-5.0 8548697938) AC CA IONZ (test code = 4.50 mg/dL 4.50-5.30 8001035927) GLUCOSE (test code = 166 mg/dL 70-110 H 2204960810) Lab Interpretation Abnormal (test code = 68173-4) [facility]CA2+2021-10-17 21:42:22 Test Item Value Reference Range Interpretation Comments PH (test code = 2) 7.35-7.45 PCO2 (test code = See_Comment [Automate d message] 4880832976) The system [employer] generated this result transmit britney reference range : 35 - 45 mmHg. The reference range was not used to interpret this result as normal/abnormal . PO2 (test code = See_Comment H [Automated message] 7732467054) The system [employer] generated this result transmit britney reference range : 80 - 100 mmHg. The reference range was not used to interpret this result as normal/abnormal . HCO3 (test code = See_Comment [Automate d message] 2716306119) The system [employer] generated this result transmit britney reference range : 22 - 26 mEq/L. The reference range was not used to interpret this result as normal/abnormal . BE (test code = See_Comment [Automated message] 0612010389) The system [employer] generated this result transmit britney reference range : -3.0 - 3.0 mEq/ L. The reference r nicholas was not used to interpret this result as normal/abnormal . THB (test code = 13.0 g/dL 12.0-16.0 4534303053) %O2HB (test code = 98.9 % 94.0-99.0 5945891522) %COHB ART (test code = 0.3 % 0.0-1.5 9041440481) %METHB ART (test code = 0.0 % 0.4-1.5 L 0371902276) VOL%O2 ART (test code = 18.5 % 15.0-23.0 9455635688) NA (test code = 139 mmol/L 135-145 6653191375) K+ (test code = 4.6 mmol/L 3.5-5.0 7447709307) AC CA IONZ (test code = 4.50 mg/dL 4.50-5.30 7913975585) GLUCOSE (test code = 166 mg/dL 70-110 H 6215688949) Lab Interpretation Abnormal (test code = 47990-5) [facility] WITH [id number] 11:01:03 Test Item Value Reference Range Interpretation [...] RDW-SD (test code = 44.5 fL 39.0-49.9 65470-3) RDW-CV (test code = 14.1 % 12.0-15.5 788-0) PLT (test code = See_Comment [Automated 777-3) message] The system which generated this result transmit britney reference range : 166 - 358 10*3/ ?L. The reference range was not u sed to interpret th is result as normal/abnormal . MPV (test code = 11.0 fL 9.5-12.9 52245-9) NRBC/100 WBC (test See_Comment [Automat ed code = 8762591184) message] The system which generated this result transmit britney reference range : 0.0 - 10.0 /100 WBCs. The reference range was not used to interpret this result as normal/abnormal . NRBC x10^3 (test code <0.01 See_Comment [Auto mated = 6107430245) message] The system which generated this result transmit britney reference range : 10*3/?L. The reference range was not used to interpret this result as normal/abnormal . GRAN MAT (NEUT) % 91.6 % (test code = 770-8) IMM GRAN % (test code 1.40 % = 0814788816) LYMPH % (test code = 5.5 % 736-9) MONO % (test code = 1.4 % 5905-5) EOS % (test code = 0.0 % 713-8) BASO % (test code = 0.1 % 706-2) GRAN MAT x10^3(ANC) 17.75 10*3/uL 1.88-7.09 H (test code = 6287336056) IMM GRAN x10^3 (test 0.27 10*3/uL 0.00-0.06 H code = 9831380642) LYMPH x10^3 (test code 1.06 10*3/uL 1.32-3.29 L = 731-0) MONO x10^3 (test code 0.28 10*3/uL 0.33-0.92 L = 742-7) EOS x10^3 (test code = <0.03 0.03-0.39 L 711-2) BASO x10^3 (test code <0.03 0.01-0.07 = 704-7) TOXIC CHANGES (test Present A code = 803-7) Lab Interpretation Abnormal (test code = 23607-9) [facility] WITH [id number] 11:01:03 Test Item Value Reference Range Interpretation Comments WBC (test code = See_Comment H [Automated 7090-2) message] The system which generated this result transmit britney reference range : 4.30 - 11.10 10*3/?L. The reference range was not used to interpret this result as normal/abnormal . RBC (test code = See_Comment [Automated 009-8) message] The system which generated [...] RDW-SD (test code = 44.5 fL 39.0-49.9 24454-1) RDW-CV (test code = 14.1 % 12.0-15.5 788-0) PLT (test code = See_Comment [Automated 777-3) message] The system which generated this result transmit britney reference range : 166 - 358 10*3/ ?L. The reference range was not u sed to interpret th is result as normal/abnormal . MPV (test code = 11.0 fL 9.5-12.9 58234-0) NRBC/100 WBC (test See_Comment [Automat ed code = 1448516844) message] The system which generated this result transmit britney reference range : 0.0 - 10.0 /100 WBCs. The reference range was not used to interpret this result as normal/abnormal . NRBC x10^3 (test code <0.01 See_Comment [Auto mated = 6282140689) message] The system which generated this result transmit britney reference range : 10*3/?L. The reference range was not used to interpret this result as normal/abnormal . GRAN MAT (NEUT) % 91.6 % (test code = 770-8) IMM GRAN % (test code 1.40 % = 7808391573) LYMPH % (test code = 5.5 % 736-9) MONO % (test code = 1.4 % 5905-5) EOS % (test code = 0.0 % 713-8) BASO % (test code = 0.1 % 706-2) GRAN MAT x10^3(ANC) 17.75 10*3/uL 1.88-7.09 H (test code = 9175109433) IMM GRAN x10^3 (test 0.27 10*3/uL 0.00-0.06 H code = 2256881780) LYMPH x10^3 (test code 1.06 10*3/uL 1.32-3.29 L = 731-0) MONO x10^3 (test code 0.28 10*3/uL 0.33-0.92 L = 742-7) EOS x10^3 (test code = <0.03 0.03-0.39 L 711-2) BASO x10^3 (test code <0.03 0.01-0.07 = 704-7) TOXIC CHANGES (test Present A code = 803-7) Lab Interpretation Abnormal (test code = 84736-8) [facility] METABOLIC PANEL (NA, K, CL, CO2, GLUCOSE, BUN, CREATININE, CA)2021-10-17 10:54:32 Test Item Value Reference Range Interpretation Comments NA (test code = 135 mmol/L 135-145 2277557017) K (test code = 5.2 mmol/L 3.5-5.0 H Slight 8056291398) hemolysis CL (test code = 101 mmol/L 98-108 3430033514) CO2 TOTAL (test code 27 mmol/L 23-31 = 9993537996) AGAP (test code = 2-16 2264707128) BUN (test code = 21 mg/dL 7-23 Slight 8552810182) hemolysis GLUCOSE (test code = 153 mg/dL 70-110 H 9147043668) CREATININE (test code 0.71 mg/dL 0.50-1.04 = 6836519631) CALCIUM (test code = 8.3 mg/dL 8.6-10.6 L 2853519509) eGFR (test code = mL/min/1.73m2 8667244684) LUCILLE (test code = LUCILLE) Association of [...] tests). Lab Interpretation Abnormal (test code = 01987-1) [facility] 10:54[facility]32 Test Item Value Reference Range Interpretation Comments MAGNESIUM (test code = 9820589161) 2.2 mg/dL 1.7-2.4 Lab Interpretation (test code = Normal 28185-8) [facility] 10:54:32 Test Item Value Reference Range Interpretation Comments PHOSPHORUS (test code = 3178498541) 5.9 mg/dL 2.5-5.0 H Lab Interpretation (test code = Abnormal 55349-8) [facility] (NA, K, CL, CO2, GLUCOSE, BUN, CREATININE, CA)2021-10-17 10:54:32 Test Item Value Reference Range Interpretation Comments NA (test code = 135 mmol/L 135-145 8321313174) K (test code = 5.2 mmol/L 3.5-5.0 H Slight 2796660250) hemolysis CL (test code = 101 mmol/L 98-108 2429776543) CO2 TOTAL (test code 27 mmol/L 23-31 = 2418121191) AGAP (test code = 2-16 2260802713) BUN (test code = 21 mg/dL 7-23 Slight 1507272292) hemolysis GLUCOSE (test code = 153 mg/dL 70-110 H 1101952013) CREATININE (test code 0.71 mg/dL 0.50-1.04 = 4039722877) CALCIUM (test code = 8.3 mg/dL 8.6-10.6 L 8171537780) eGFR (test code = mL/min/1.73m2 6041468695) LUCILLE (test code = LUCILLE) Association of [...] tests). Lab Interpretation Abnormal (test code = 92111-5) [facility] 10:54:32 Test Item Value Reference Range Interpretation Comments MAGNESIUM (test code = 7268953271) 2.2 mg/dL 1.7-2.4 Lab Interpretation (test code = Normal 04943-4) [facility] 10:54:32 Test Item Value Reference Range Interpretation Comments PHOSPHORUS (test code = 7077182951) 5.9 mg/dL 2.5-5.0 H Lab Interpretation (test code = Abnormal 90018-2) [facility] [id number] 10:53:06 Test Item Value Reference Range Interpretation Comments ESR (test code = See_Comment H [Automated message] 9152781043) The system [employer] generated this result transmitted ref erence range: 0 - 20 m m/HR. The reference r nicholas was not used to interpret this result as normal/abnor mal. Lab Interpretation (test Abnormal code = 85207-3) [facility] [id number] 10:53:06 Test Item Value Reference Range Interpretation Comments ESR (test code = See_Comment H [Automated message] 1030968106) The system [employer] generated this result transmitted ref erence range: 0 - 20 m m/HR. The reference r nicholas was not used to interpret this result as normal/abnor mal. Lab Interpretation (test Abnormal code = 95522-3) [facility]2022-02-13 11:13:05 Test Item Value Reference Range Interpretation Comments MAGNESIUM (test code = 2597983866) 2.3 mg/dL 1.7-2.4 Lab Interpretation (test code = Normal 95729-0) [facility] 11:13:05 Test Item Value Reference Range Interpretation Comments PHOSPHORUS (test code = 5033190556) 3.4 mg/dL 2.5-5.0 Lab Interpretation (test code = Normal 18549-4) [facility]2022-02-13 11:13:05 Test Item Value Reference Range Interpretation Comments MAGNESIUM (test code = 5328090918) 2.3 mg/dL 1.7-2.4 Lab Interpretation (test code = Normal 95979-0) [facility] 11:13:05 Test Item Value Reference Range Interpretation Comments PHOSPHORUS (test code = 7865052684) 3.4 mg/dL 2.5-5.0 Lab Interpretation (test code = Normal 01642-6) [facility] (NA, K, CL, CO2, GLUCOSE, BUN, CREATININE, CA)2021-10-16 11:13:04 Test Item Value Reference Range Interpretation Comments NA (test code = 135 mmol/L 135-145 4527437189) K (test code = 4.6 mmol/L 3.5-5.0 3412713591) CL (test code = 102 mmol/L 98-108 4034489461) CO2 TOTAL (test code = 29 mmol/L 23-31 5556591607) AGAP (test code = 2-16 4477371931) BUN (test code = 24 mg/dL 7-23 H 7642772449) GLUCOSE (test code = 90 mg/dL 70-110 8441645255) CREATININE (test code = 0.87 mg/dL 0.50-1.04 3812122154) CALCIUM (test code = 8.0 mg/dL 8.6-10.6 L 2309078350) eGFR (test code = mL/min/1.73m2 7966606291) LUCILLE (test code = LUCILLE) Association of [...] tests). Lab Interpretation Abnormal (test code = 05308-6) [facility] (NA, K, CL, CO2, GLUCOSE, BUN, CREATININE, CA)2021-10-16 11:13:04 Test Item Value Reference Range Interpretation Comments NA (test code = 135 mmol/L 135-145 5650123439) K (test code = 4.6 mmol/L 3.5-5.0 0093123616) CL (test code = 102 mmol/L 98-108 1539007906) CO2 TOTAL (test code = 29 mmol/L 23-31 5703297448) AGAP (test code = 2-16 3643520298) BUN (test code = 24 mg/dL 7-23 H 3911787493) GLUCOSE (test code = 90 mg/dL 70-110 9436679130) CREATININE (test code = 0.87 mg/dL 0.50-1.04 9349350210) CALCIUM (test code = 8.0 mg/dL 8.6-10.6 L 1996311597) eGFR (test code = mL/min/1.73m2 2222486990) LUCILLE (test code = LUCILLE) Association of [...] tests). Lab Interpretation Abnormal (test code = 56054-1) [facility] L[facility]IC [id number] 10:59:55 Test Item Value Reference Range Interpretation Comments PH (test code = 2) 7.35-7.45 PCO2 (test code = See_Comment [Automate d 9762804410) message] The sy stem which generated this result transmitted reference range : 35 - 45 mmHg. The reference range was not used to interpret this result as normal/abnormal . PO2 (test code = See_Comment L [Automated 6409047721) message] The sy stem which generated this result transmitted reference range : 80 - 100 mmHg. The reference range was not used to interpret this result as normal/abnormal . HCO3 (test code = See_Comment H [Automate d 7478343173) message] The sy stem which generated this result transmitted reference range : 22 - 26 mEq/L. The reference range was not used to interpret this result as normal/abnormal . BE (test code = See_Comment [Automated 1956564546) message] The sy stem which generated this result transmitted reference range : -3.0 - 3.0 mEq/ L. The reference r nicholas was not used to interpret this result as normal/abnormal . THB (test code = 13.7 g/dL 12.0-16.0 9242783139) %O2HB (test code = 86.3 % 94.0-99.0 L 3590158734) %COHB ART (test code = 0.1 % 0.0-1.5 0082542226) %METHB ART (test code = 0.1 % 0.4-1.5 L 5805214026) VOL%O2 ART (test code = 16.6 % 15.0-23.0 2036656402) NA (test code = 135 mmol/L 135-145 9885563790) K+ (test code = 4.6 mmol/L 3.5-5.0 9240505777) AC CA IONZ (test code = 4.70 mg/dL 4.50-5.30 9485414008) GLUCOSE (test code = 88 mg/dL 70-110 1462894343) LACTIC ACID (test code 1.41 mmol/L 0.50-2.20 QUES = 6868458115) Lab Interpretation Abnormal (test code = 12900-4) [facility] [id number] 10:59:55 Test Item Value Reference Range Interpretation Comments PH (test code = 2) 7.35-7.45 PCO2 (test code = See_Comment [Automate d 8619496458) message] The sy stem which generated this result transmitted reference range : 35 - 45 mmHg. The reference range was not used to interpret this result as normal/abnormal . PO2 (test code = See_Comment L [Automated 3623479135) message] The sy stem which generated this result transmitted reference range : 80 - 100 mmHg. The reference range was not used to interpret this result as normal/abnormal . HCO3 (test code = See_Comment H [Automate d 4307311643) message] The sy stem which generated this result transmitted reference range : 22 - 26 mEq/L. The reference range was not used to interpret this result as normal/abnormal . BE (test code = See_Comment [Automated 9032999397) message] The sy stem which generated this result transmitted reference range : -3.0 - 3.0 mEq/ L. The reference r nicholas was not used to interpret this result as normal/abnormal . THB (test code = 13.7 g/dL 12.0-16.0 7220632641) %O2HB (test code = 86.3 % 94.0-99.0 L 6372288901) %COHB ART (test code = 0.1 % 0.0-1.5 2013909319) %METHB ART (test code = 0.1 % 0.4-1.5 L 1273432514) VOL%O2 ART (test code = 16.6 % 15.0-23.0 1117422610) NA (test code = 135 mmol/L 135-145 4807986341) K+ (test code = 4.6 mmol/L 3.5-5.0 8636555895) AC CA IONZ (test code = 4.70 mg/dL 4.50-5.30 3684411187) GLUCOSE (test code = 88 mg/dL 70-110 7217935679) LACTIC ACID (test code 1.41 mmol/L 0.50-2.20 QUES = 5132995996) Lab Interpretation Abnormal (test code = 40821-8) [facility] WITH [id number] 10:54:01 Test Item Value Reference Range Interpretation [...] RDW-SD (test code = 47.0 fL 39.0-49.9 13464-2) RDW-CV (test code = 14.6 % 12.0-15.5 788-0) PLT (test code = See_Comment [Automated 777-3) message] The system which generated this result transmit britney reference range : 166 - 358 10*3/ ?L. The reference range was not u sed to interpret th is result as normal/abnormal . MPV (test code = 10.5 fL 9.5-12.9 40131-6) NRBC/100 WBC (test See_Comment [Automat ed code = 5960460646) message] The system which generated this result transmit britney reference range : 0.0 - 10.0 /100 WBCs. The reference range was not used to interpret this result as normal/abnormal . NRBC x10^3 (test code See_Comment [Auto mated = 0547270228) message] The system which generated this result transmit britney reference range : 10*3/?L. The reference range was not used to interpret this result as normal/abnormal . GRAN MAT (NEUT) % 85.6 % (test code = 770-8) IMM GRAN % (test code 1.10 % = 1544930854) LYMPH % (test code = 9.7 % 736-9) MONO % (test code = 3.0 % 5905-5) EOS % (test code = 0.5 % 713-8) BASO % (test code = 0.1 % 706-2) GRAN MAT x10^3(ANC) 12.97 10*3/uL 1.88-7.09 H (test code = 6368313478) IMM GRAN x10^3 (test 0.16 10*3/uL 0.00-0.06 H code = 1678902897) LYMPH x10^3 (test code 1.47 10*3/uL 1.32-3.29 = 731-0) MONO x10^3 (test code 0.45 10*3/uL 0.33-0.92 = 742-7) EOS x10^3 (test code = 0.08 10*3/uL 0.03-0.39 711-2) BASO x10^3 (test code <0.03 0.01-0.07 = 704-7) Lab Interpretation Abnormal (test code = 92884-7) [facility] WITH [id number] 10:54:01 Test Item Value Reference Range Interpretation Comments WBC (test code = See_Comment H [Automated 2690-2) message] The system which generated this result transmit britney reference range : 4.30 - 11.10 10*3/?L. The reference range was not used to interpret this result as normal/abnormal . RBC (test code = See_Comment [Automated 299-8) message] The system which generated this result [...] RDW-SD (test code = 47.0 fL 39.0-49.9 32128-8) RDW-CV (test code = 14.6 % 12.0-15.5 788-0) PLT (test code = See_Comment [Automated 777-3) message] The system which generated this result transmit britney reference range : 166 - 358 10*3/ ?L. The reference range was not u sed to interpret th is result as normal/abnormal . MPV (test code = 10.5 fL 9.5-12.9 04826-6) NRBC/100 WBC (test See_Comment [Automat ed code = 7754404246) message] The system which generated this result transmit britney reference range : 0.0 - 10.0 /100 WBCs. The reference range was not used to interpret this result as normal/abnormal . NRBC x10^3 (test code See_Comment [Auto mated = 7004173738) message] The system which generated this result transmit britney reference range : 10*3/?L. The reference range was not used to interpret this result as normal/abnormal . GRAN MAT (NEUT) % 85.6 % (test code = 770-8) IMM GRAN % (test code 1.10 % = 6350080931) LYMPH % (test code = 9.7 % 736-9) MONO % (test code = 3.0 % 5905-5) EOS % (test code = 0.5 % 713-8) BASO % (test code = 0.1 % 706-2) GRAN MAT x10^3(ANC) 12.97 10*3/uL 1.88-7.09 H (test code = 9644909986) IMM GRAN x10^3 (test 0.16 10*3/uL 0.00-0.06 H code = 2445268423) LYMPH x10^3 (test code 1.47 10*3/uL 1.32-3.29 = 731-0) MONO x10^3 (test code 0.45 10*3/uL 0.33-0.92 = 742-7) EOS x10^3 (test code = 0.08 10*3/uL 0.03-0.39 711-2) BASO x10^3 (test code <0.03 0.01-0.07 = 704-7) Lab Interpretation Abnormal (test code = 40403-2) [facility] [id number] 23:24:07 Test Item Value Reference Range Interpretation Comments CRP (test code = 7368432387) 22.1 mg/dL <1.0 H Lab Interpretation (test code = Abnormal 21039-5) [facility] [id number] 23:24:07 Test Item Value Reference Range Interpretation Comments CRP (test code = 1765281446) 22.1 mg/dL <1.0 H Lab Interpretation (test code = Abnormal 89407-4) [facility] [id number] 23:21:42 Test Item Value Reference Interpretation Comments Range TROPONIN I (test 0.003 ng/mL See_Comment [Automated code = 7909011055) message] The system which generated this result [...] biotin. Lab Interpretation Normal (test code = 29627-0) [facility] [id number] 23:21:42 Test Item Value Reference Interpretation Comments Range TROPONIN I (test 0.003 ng/mL See_Comment [Automated code = 8234569261) message] The system which generated this result [...] biotin. Lab Interpretation Normal (test code = 10622-1) [facility] (NA, K, CL, CO2, GLUCOSE, BUN, CREATININE, CA)2021-10-15 23:12:40 Test Item Value Reference Range Interpretation Comments NA (test code = 136 mmol/L 135-145 2964119633) K (test code = 4.8 mmol/L 3.5-5.0 1439779124) CL (test code = 104 mmol/L 98-108 4597057878) CO2 TOTAL (test code = 26 mmol/L 23-31 3822489482) AGAP (test code = 2-16 2272594611) BUN (test code = 22 mg/dL 7-23 6839162249) GLUCOSE (test code = 114 mg/dL 70-110 H 3253135756) CREATININE (test code = 0.77 mg/dL 0.50-1.04 4882779634) CALCIUM (test code = 8.2 mg/dL 8.6-10.6 L 2179620526) eGFR (test code = mL/min/1.73m2 9538366225) LUCILLE (test code = LUCILLE) Association of [...] tests). Lab Interpretation Abnormal (test code = 16649-9) [facility] (NA, K, CL, CO2, GLUCOSE, BUN, CREATININE, CA)2021-10-15 23:12:40 Test Item Value Reference Range Interpretation Comments NA (test code = 136 mmol/L 135-145 4926531624) K (test code = 4.8 mmol/L 3.5-5.0 3868196589) CL (test code = 104 mmol/L 98-108 6654166703) CO2 TOTAL (test code = 26 mmol/L 23-31 6691476018) AGAP (test code = 2-16 5821877500) BUN (test code = 22 mg/dL 7-23 1786186474) GLUCOSE (test code = 114 mg/dL 70-110 H 7596410478) CREATININE (test code = 0.77 mg/dL 0.50-1.04 0831154250) CALCIUM (test code = 8.2 mg/dL 8.6-10.6 L 2453943210) eGFR (test code = mL/min/1.73m2 6140519589) LUCILLE (test code = LUCILLE) Association of [...] tests). Lab Interpretation Abnormal (test code = 72642-8) [facility] [id number] 21:55:57 Test Item Value Reference Interpretation Comments Range TROPONIN I (test 0.003 ng/mL See_Comment [Automated code = 2714019704) message] The system which generated this result [...] biotin. Lab Interpretation Normal (test code = 30852-3) [facility] [id number] 21:55:57 Test Item Value Reference Interpretation Comments Range TROPONIN I (test 0.003 ng/mL See_Comment [Automated code = 6523123696) message] The system which generated this result [...] biotin. Lab Interpretation Normal (test code = 10609-1) [facility]20[facility]12 19:07:46 Test Item Value Reference Range Interpretation Comments Procalcitonin (test 0.15 ng/mL <0.08 H code = 3246763535) LUCILLE (test code = LUCILLE) INTERPRETATION OF [...] lung abscess/empyema. For further information please refer to:[email or web address] Lab Interpretation Abnormal (test code = 19723-7) [facility]2022-[facility]12 19:07:46 Test Item Value Reference Range Interpretation Comments Procalcitonin (test 0.15 ng/mL <0.08 H code = 2297431877) LUCILLE (test code = LUCILLE) INTERPRETATION OF [...] lung abscess/empyema. For further information please refer to:[email or web address] Lab Interpretation Abnormal (test code = 60133-7) [facility] [id number] 18:31:24 Test Item Value Reference Range Interpretation Comments NT-proBNP (test code 43 pg/mL See_Comment [Autom ated = 2615736331) message] The system which generated this result transmitted reference range : <=125. The reference range was not used to interpret this result as normal/abnormal . LUCILLE (test code = LUCILLE) Biotin has been reported to cause a negative bias, interpret results relative to patient's use of biotin. Lab Interpretation Normal (test code = 41453-0) [facility] [id number] 18:31:24 Test Item Value Reference Range Interpretation Comments NT-proBNP (test code 43 pg/mL See_Comment [Autom ated = 1922853453) message] The system which generated this result transmitted reference range : <=125. The reference range was not used to interpret this result as normal/abnormal . LUCILLE (test code = LUCILLE) Biotin has been reported to cause a negative bias, interpret results relative to patient's use of biotin. Lab Interpretation Normal (test code = 54422-4) [facility]2022-[facility]12 09:17:58 Test Item Value Reference Range Interpretation Comments Procalcitonin (test 0.15 ng/mL <0.08 H code = 2184081676) LUCILLE (test code = LUCILLE) INTERPRETATION OF [...] lung abscess/empyema. For further information please refer to:[email or web address] Lab Interpretation Abnormal (test code = 74560-0) [facility]2022-[facility]12 09:17:58 Test Item Value Reference Range Interpretation Comments Procalcitonin (test 0.15 ng/mL <0.08 H code = 5974911153) LUCILLE (test code = LUCILLE) INTERPRETATION OF [...] lung abscess/empyema. For further information please refer to:[email or web address] Lab Interpretation Abnormal (test code = 55466-3) [facility] METABOLIC PANEL (NA, K, CL, CO2, GLUCOSE, BUN, CREATININE, CA)2021-10-15 08:36:11 Test Item Value Reference Range Interpretation Comments NA (test code = 139 mmol/L 135-145 0401839326) K (test code = 5.5 mmol/L 3.5-5.0 H Slight 8032980476) hemolysis CL (test code = 104 mmol/L 98-108 4845124370) CO2 TOTAL (test code 29 mmol/L 23-31 = 9949177805) AGAP (test code = 2-16 8529078509) BUN (test code = 17 mg/dL 7-23 Slight 3487026890) hemolysis GLUCOSE (test code = 131 mg/dL 70-110 H 3702752354) CREATININE (test code 0.77 mg/dL 0.50-1.04 = 1396582544) CALCIUM (test code = 8.5 mg/dL 8.6-10.6 L 5500283046) eGFR (test code = mL/min/1.73m2 5537669943) LUCILLE (test code = LUCILLE) Association of [...] tests). Lab Interpretation Abnormal (test code = 79080-4) [facility] [id number] 08:36:11 Test Item Value Reference Range Interpretation Comments MAGNESIUM (test code = 7908051353) 2.4 mg/dL 1.7-2.4 Lab Interpretation (test code = Normal 77988-7) [facility] (NA, K, CL, CO2, GLUCOSE, BUN, CREATININE, CA)2021-10-15 08:36:11 Test Item Value Reference Range Interpretation Comments NA (test code = 139 mmol/L 135-145 9382654405) K (test code = 5.5 mmol/L 3.5-5.0 H Slight 3870182170) hemolysis CL (test code = 104 mmol/L 98-108 2721726212) CO2 TOTAL (test code 29 mmol/L 23-31 = 1338184691) AGAP (test code = 2-16 7638209442) BUN (test code = 17 mg/dL 7-23 Slight 3132873441) hemolysis GLUCOSE (test code = 131 mg/dL 70-110 H 1293951730) CREATININE (test code 0.77 mg/dL 0.50-1.04 = 3229155605) CALCIUM (test code = 8.5 mg/dL 8.6-10.6 L 1048435066) eGFR (test code = mL/min/1.73m2 3911806581) LUCILLE (test code = LUCILLE) Association of [...] tests). Lab Interpretation Abnormal (test code = 47727-4) [facility] [id number] 08:36:11 Test Item Value Reference Range Interpretation Comments MAGNESIUM (test code = 8080208200) 2.4 mg/dL 1.7-2.4 Lab Interpretation (test code = Normal 10342-6) [facility] [id number] 08:21:08 Test Item Value Reference Interpretation Comments Range TROPONIN I (test 0.005 ng/mL See_Comment [Automated code = 7073984389) message] The system which generated this result [...] biotin. Lab Interpretation Normal (test code = 85708-9) [facility] [id number] 08:21:08 Test Item Value Reference Interpretation Comments Range TROPONIN I (test 0.005 ng/mL See_Comment [Automated code = 8292869869) message] The system which generated this result [...] biotin. Lab Interpretation Normal (test code = 69072-3) [facility] WITH [id number] 07:37:26 Test Item Value Reference Range Interpretation [...] RDW-SD (test code = 47.4 fL 39.0-49.9 99225-6) RDW-CV (test code = 14.6 % 12.0-15.5 788-0) PLT (test code = See_Comment [Automated 777-3) message] The system which generated this result transmit britney reference range : 166 - 358 10*3/ ?L. The reference range was not u sed to interpret th is result as normal/abnormal . MPV (test code = 11.1 fL 9.5-12.9 76669-5) NRBC/100 WBC (test See_Comment [Automat ed code = 6213925391) message] The system which generated this result transmit britney reference range : 0.0 - 10.0 /100 WBCs. The reference range was not used to interpret this result as normal/abnormal . NRBC x10^3 (test code <0.01 See_Comment [Auto mated = 4280378969) message] The system which generated this result transmit britney reference range : 10*3/?L. The reference range was not used to interpret this result as normal/abnormal . GRAN MAT (NEUT) % 92.0 % (test code = 770-8) IMM GRAN % (test code 1.10 % = 9378265175) LYMPH % (test code = 5.0 % 736-9) MONO % (test code = 1.8 % 5905-5) EOS % (test code = 0.0 % 713-8) BASO % (test code = 0.1 % 706-2) GRAN MAT x10^3(ANC) 20.65 10*3/uL 1.88-7.09 H (test code = 0229221565) IMM GRAN x10^3 (test 0.25 10*3/uL 0.00-0.06 H code = 1472980263) LYMPH x10^3 (test code 1.13 10*3/uL 1.32-3.29 L = 731-0) MONO x10^3 (test code 0.40 10*3/uL 0.33-0.92 = 742-7) EOS x10^3 (test code = <0.03 0.03-0.39 L 711-2) BASO x10^3 (test code 0.03 10*3/uL 0.01-0.07 = 704-7) Lab Interpretation Abnormal (test code = 55242-8) [facility] WITH [id number] 07:37:26 Test Item Value Reference Range Interpretation Comments WBC (test code = See_Comment H [Automated 6690-2) message] The system which generated this result transmit britney reference range : 4.30 - 11.10 10*3/?L. The reference range was not used to interpret this result as normal/abnormal . RBC (test code = See_Comment [Automated 639-8) message] The system which generated this result [...] RDW-SD (test code = 47.4 fL 39.0-49.9 69869-4) RDW-CV (test code = 14.6 % 12.0-15.5 788-0) PLT (test code = See_Comment [Automated 777-3) message] The system which generated this result transmit britney reference range : 166 - 358 10*3/ ?L. The reference range was not u sed to interpret th is result as normal/abnormal . MPV (test code = 11.1 fL 9.5-12.9 92006-3) NRBC/100 WBC (test See_Comment [Automat ed code = 1168877860) message] The system which generated this result transmit britney reference range : 0.0 - 10.0 /100 WBCs. The reference range was not used to interpret this result as normal/abnormal . NRBC x10^3 (test code <0.01 See_Comment [Auto mated = 6299469709) message] The system which generated this result transmit britney reference range : 10*3/?L. The reference range was not used to interpret this result as normal/abnormal . GRAN MAT (NEUT) % 92.0 % (test code = 770-8) IMM GRAN % (test code 1.10 % = 5946569180) LYMPH % (test code = 5.0 % 736-9) MONO % (test code = 1.8 % 5905-5) EOS % (test code = 0.0 % 713-8) BASO % (test code = 0.1 % 706-2) GRAN MAT x10^3(ANC) 20.65 10*3/uL 1.88-7.09 H (test code = 4944318864) IMM GRAN x10^3 (test 0.25 10*3/uL 0.00-0.06 H code = 2930598150) LYMPH x10^3 (test code 1.13 10*3/uL 1.32-3.29 L = 731-0) MONO x10^3 (test code 0.40 10*3/uL 0.33-0.92 = 742-7) EOS x10^3 (test code = <0.03 0.03-0.39 L 711-2) BASO x10^3 (test code 0.03 10*3/uL 0.01-0.07 = 704-7) Lab Interpretation Abnormal (test code = 39141-3) [facility]+K+GLU+CA2+2021-10-15 07:28:14 Test Item Value Reference Range Interpretation Comments PH (test code = 2) 7.35-7.45 PCO2 (test code = See_Comment [Automate d message] 1299578536) The system [employer] generated this result transmit britney reference range : 35 - 45 mmHg. The reference range was not used to interpret this result as normal/abnormal . PO2 (test code = See_Comment H [Automated message] 9255909321) The system [employer] generated this result transmit britney reference range : 80 - 100 mmHg. The reference range was not used to interpret this result as normal/abnormal . HCO3 (test code = See_Comment [Automate d message] 2409367413) The system [employer] generated this result transmit britney reference range : 22 - 26 mEq/L. The reference range was not used to interpret this result as normal/abnormal . BE (test code = See_Comment [Automated message] 7552797480) The system [employer] generated this result transmit britney reference range : -3.0 - 3.0 mEq/ L. The reference r nicholas was not used to interpret this result as normal/abnormal . THB (test code = 13.1 g/dL 12.0-16.0 5443806523) %O2HB (test code = 98.7 % 94.0-99.0 4403865120) %COHB ART (test code = 0.4 % 0.0-1.5 0480491647) %METHB ART (test code = 0.0 % 0.4-1.5 L 9543243658) VOL%O2 ART (test code = 18.5 % 15.0-23.0 QUES 5461010815) NA (test code = 138 mmol/L 135-145 7493103874) K+ (test code = 5.0 mmol/L 3.5-5.0 8828930471) AC CA IONZ (test code = 4.50 mg/dL 4.50-5.30 5344527334) GLUCOSE (test code = 138 mg/dL 70-110 H 0361674548) Lab Interpretation Abnormal (test code = 74574-1) [facility]NA+K+GLU+CA2+2021-10-15 07:28:14 Test Item Value Reference Range Interpretation Comments PH (test code = 2) 7.35-7.45 PCO2 (test code = See_Comment [Automate d message] 4501554025) The system [employer] generated this result transmit britney reference range : 35 - 45 mmHg. The reference range was not used to interpret this result as normal/abnormal . PO2 (test code = See_Comment H [Automated message] 5223817087) The system [employer] generated this result transmit britney reference range : 80 - 100 mmHg. The reference range was not used to interpret this result as normal/abnormal . HCO3 (test code = See_Comment [Automate d message] 4874717431) The system [employer] generated this result transmit britney reference range : 22 - 26 mEq/L. The reference range was not used to interpret this result as normal/abnormal . BE (test code = See_Comment [Automated message] 5327859905) The system [employer] generated this result transmit britney reference range : -3.0 - 3.0 mEq/ L. The reference r nicholas was not used to interpret this result as normal/abnormal . THB (test code = 13.1 g/dL 12.0-16.0 3433450791) %O2HB (test code = 98.7 % 94.0-99.0 0143006278) %COHB ART (test code = 0.4 % 0.0-1.5 2657211776) %METHB ART (test code = 0.0 % 0.4-1.5 L 9502071154) VOL%O2 ART (test code = 18.5 % 15.0-23.0 QUES 6842888223) NA (test code = 138 mmol/L 135-145 5593735955) K+ (test code = 5.0 mmol/L 3.5-5.0 5390150579) AC CA IONZ (test code = 4.50 mg/dL 4.50-5.30 3060781651) GLUCOSE (test code = 138 mg/dL 70-110 H 2817474625) Lab Interpretation Abnormal (test code = 31923-6) [facility] [id number] 00:00:00 Test Item Value Reference Range Interpretation Comments DEB SPECIES (test code = ) NEGATIVE G. VAGINALIS (test code = ) POSITIVE T. VAGINALIS (test code = ) NEGATIVE GC AND CHLAMYDIA, AMPLIFIED, [id number] 00:00:00 Test Item Value Reference Range Interpretation Comments GONORRHEA, NAAT (test code = 73469) NEGATIVE CHLAMYDIA, NAAT (test code = 29265) NEGATIVE GC AND CHLAMYDIA, AMPLIFIED, [id number] 00:00:00 Test Item Value Reference Range Interpretation Comments GONORRHEA, NAAT (test code = 14714) NEGATIVE CHLAMYDIA, NAAT (test code = 48457) NEGATIVE HIV AB/AG COMBO RFLX [id number] 00:00:00 Test Item Value Reference Range Interpretation Comments HIV 1/2 4TH GEN, RFLX CONF (test NON-REACTIVE code = 3514) HIV AB/AG COMBO RFLX [id number] 00:00:00 Test Item Value Reference Range Interpretation Comments HIV 1/2 4TH GEN, RFLX CONF (test NON-REACTIVE code = 3514) [id number] 00:00:00 Test Item Value Reference Range Interpretation Comments RPR RESULT (test code = NON-REACTIVE 3501) RPR TITER (test code = 3500) NOT INDIC. TITER [id number] 00:00:00 Test Item Value Reference Range Interpretation Comments RPR RESULT (test code = NON-REACTIVE 3501) RPR TITER (test code = 3500) NOT INDIC. TITER [id number] 00:00:00 Test Item Value Reference Range Interpretation Comments RPR RESULT (test code = NON-REACTIVE 3501) RPR TITER (test code = 3500) NOT INDIC. TITER VAGINAL PATHOGENS DNA [id number] 00:00:00 Test Item Value Reference Range Interpretation Comments DEB SPECIES (test code = ) NEGATIVE G. VAGINALIS (test code = 83592) POSITIVE T. VAGINALIS (test code = ) NEGATIVE
[2022-05-29] MEDS ORDERED: DIAZEPAM 5 MG TABLET ONE (12:29)
[2022-05-29] MEDS ORDERED: HYDROCODONE/APAP 7.5/325 MG TAB ONE (12:30)
--- NOTE | 2022-05-29 13:27 | RAD REPORT ---
EXAM DESCRIPTION: Shoulder Right 2 View - 05/29/2022 1:06 pm CLINICAL HISTORY: PAIN COMPARISON: Shoulder Right 2 View dated 03/27/2022 TECHNIQUE: Internal and external rotation views of the right shoulder were obtained. FINDINGS: There is no fracture or dislocation. AC joint degenerative changes are again noted stable from short interval March 27 examination. Acromial humeral joint space within range of normal with no abnormal soft tissue calcifications. Glenohumeral joint space does appear to be narrowed with articu lar marginal spurs seen. No pathologic or destructive process seen. IMPRESSION: Right shoulder joint degenerative changes matching the March 27 study. No acute findings.
--- NOTE | 2022-05-29 13:28 | RAD REPORT ---
EXAM DESCRIPTION: RAD - Clavicle Right - 05/29/2022 1:06 pm CLINICAL HISTORY: PAIN COMPARISON: No comparisons FINDINGS: No fracture. No pathologic bone process. There is no dislocation at the AC joint or AC marjorie nt. Both of these joints show degenerative change. Shoulder joint degenerative change further detaile d on separate right shoulder report. IMPRESSION: Mild AC joint and SC joint degenerative change. No acute clavicle finding.
--- NOTE | 2022-05-29 13:40 | ER ---
Nurse's Notes [facility] Name: Nancie Ordonez Age: 51 yrs Sex: Female : 1970 Arrival Date: 05/29/2022 Time: 12:03 Bed 10 Private MD: Parish Cyr Diagnosis: Contusion of right shoulder;Pain in right shoulder;Strain of other muscles, fascia and tendons at shoulder and upper arm level, right arm Presentation: 05/29 12:18 Chief complaint: Patient states: Raising the garage door and it fell down onto right jl7 shoulder, knocked me down to my knees, reports pain to right shoulder. Coronavirus screen: At this time, the client does not indicate any symptoms associated with coronavirus-19. Ebola Screen: No symptoms or risks identified at this time. Initial Sepsis Screen: Does the patient meet any 2 criteria? No. Patient's initial sepsis screen is negative. Does the patient have a suspected source of infection? No. Patient's initial sepsis screen is negative. Risk Assessment: Do you want to hurt yourself or someone else? Patient reports no desire to harm self or others. Onset of symptoms was May 29, 2022. 12:18 Method Of Arrival: Ambulatory jl7 12:18 Acuity: DEEPALI 4 jl7 Triage Assessment: 12:20 General: Appears in no apparent distress. uncomfortable, Behavior is calm, cooperative, jl7 appropriate for age. Pain: Complains of pain in anterior aspect of right shoulder and posterior aspect of right shoulder Pain currently is 10 out of 10 on a pain scale. Musculoskeletal: Range of motion: limited in right shoulder. Injury Description: pain. 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 - Social history:: Smoking status: Patient denies any tobacco usage or history of. Screenin:09 Abuse screen: Denies threats or abuse. Nutritional screening: No deficits noted. bm7 Tuberculosis screening: No symptoms or risk factors identified. Fall Risk None identified. Assessment: 13:09 Reassessment: No changes from previously documented assessment. Patient states symptoms bm7 have not improved. Vital Signs: 12:18 BP 179 / 112; Pulse 113; Resp 17; Temp 98.1; Pulse Ox 98% ; Weight 89.81 kg; Height 5 jl7 ft. 3 in. (160.02 cm); Pain 10/10; 13:44 BP 158 / 88; Pulse 84; Resp 16; Pulse Ox 100% on R/A; Pain 5/10; bm7 12:18 Body Mass Index 35.07 (89.81 kg, 160.02 cm) jl7 ED Course: 12:03 Patient arrived in ED. rg4 12:03 Parish Cyr MD is Private Physician. rg4 12:20 [facility] Flores [facility]-C [facility] snw 12:20 Rajesh Hughes DO is Attending Physician. snw 12:20 Triage completed. jl7 12:20 Arm band placed on right wrist. jl7 13:08 Shoulder Right (2 View) XRAY In Process Unspecified. EDMS 13:08 Clavicle Right XRAY In Process Unspecified. EDMS 13:09 Chica Tai, RN is Primary Nurse. bm7 13:09 Patient has correct armband on for positive identification. Bed in low position. Call bm7 light in reach. 13:09 No provider procedures requiring assistance completed. Patient maintains SpO2 bm7 saturation greater than 95% on room air. 13:39 Parish Cyr MD is Referral Physician. snw 13:54 Patient did not have IV access during this emergency room visit. bm7 Administered Medications: 12:34 Drug: Valium (diazepam) 10 mg Route: PO; bm7 13:55 Follow up: Response: No adverse reaction bm7 12:34 Drug: [place] (HYDROcodone-acetaminophen) (7.5 mg-325 mg) 1 tabs Route: PO; bm7 13:55 Follow up: Response: Pain is unchanged, physician notified bm7 Medication: 13:09 VIS not applicable for this client. bm7 Outcome: 13:40 Discharge ordered by . snw 13:54 Discharged to home ambulatory. bm7 13:54 Condition: good 13:54 Discharge instructions given to patient, Instructed on discharge instructions, follow up and referral plans. medication usage, Demonstrated understanding of instructions, follow-up care, medications, Prescriptions given X 2. 13:55 Patient left the ED. bm7 Signatures: Dispatcher [employer] EDMS Cate Flores, CIDER PRESS OPERATOR-C CIDER PRESS OPERATOR-Csnw Radha Lujan rg4 Aniyah Merrill RN RN jl7 Chica Tai RN RN bm7
--- NOTE | 2022-05-29 13:40 | EDPHYS ---
Physician Documentation [facility] Name: Nancie Ordonez Age: 51 yrs Sex: Female : 1970 Arrival Date: 05/29/2022 Time: 12:03 Bed 10 Private MD: Parish Cyr ED Physician aRjesh Hughes HPI: 05/29 13:43 This 51 yrs old Black Female presents to ER via Ambulatory with complaints of Shoulder snw Injury. 13:43 The patient or guardian complains of a crush injury, the garage door, decreased range snw of motion. right shoulder and right trapezius. Context: The problem was sustained at home, resulted from a direct blow, by a heavy object, The patient experiences decreased range of motion, when attempts to raise arm, The patient reports no obvious deformity. Onset: The symptoms/episode began/occurred suddenly, just prior to arrival. Associated signs and symptoms: The patient has no apparent associated signs or symptoms. Severity of symptoms: At their worst the symptoms were moderate, this morning. It is unknown whether or not the patient has had similar symptoms in the past. It is unknown whether or not the patient has recently seen a physician. hx of HTN, pt has taken her am meds. 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 - Social history:: Smoking status: Patient denies any tobacco usage or history of. ROS: 13:38 Constitutional: Negative for fever, chills, and weight loss, Eyes: Negative for injury, snw pain, redness, and discharge, ENT: Negative for injury, pain, and discharge, Neck: Negative for injury, pain, and swelling, Cardiovascular: Negative for chest pain, palpitations, and edema, Respiratory: Negative for shortness of breath, cough, wheezing, and pleuritic chest pain, Abdomen/GI: Negative for abdominal pain, nausea, vomiting, diarrhea, and constipation, Back: Negative for injury and pain, : Negative for injury, bleeding, discharge, and swelling, Skin: Negative for injury, rash, and discoloration, Neuro: Negative for headache, weakness, numbness, tingling, and seizure, Psych: Negative for depression, anxiety, suicide ideation, homicidal ideation, and hallucinations. 13:38 MS/extremity: Positive for contusion, decreased range of motion, pain, of the right shoulder. Exam: 13:37 Constitutional: This is a well developed, well nourished patient who is awake, alert, snw and in no acute distress. Head/Face: Normocephalic, atraumatic. Eyes: Pupils equal round and reactive to light, extra-ocular motions intact. Lids and lashes normal. Conjunctiva and sclera are non-icteric and not injected. Cornea within normal limits. Periorbital areas with no swelling, redness, or edema. ENT: Nares patent. No nasal discharge, no septal abnormalities noted. Tympanic membranes are normal and external auditory canals are clear. Oropharynx with no redness, swelling, or masses, exudates, or evidence of obstruction, uvula midline. Mucous membranes moist. Neck: Trachea midline, no thyromegaly or masses palpated, and no cervical lymphadenopathy. Supple, full range of motion without nuchal rigidity, or vertebral point tenderness. No Meningismus. Chest/axilla: Normal chest wall appearance and motion. Nontender with no deformity. No lesions are appreciated. Cardiovascular: Regular rate and rhythm with a normal S1 and S2. No gallops, murmurs, or rubs. Normal PMI, no JVD. No pulse deficits. Respiratory: Lungs have equal breath sounds bilaterally, clear to auscultation and percussion. No rales, rhonchi or wheezes noted. No increased work of breathing, no retractions or nasal flaring. Abdomen/GI: Soft, non-tender, with normal bowel sounds. No distension or tympany. No guarding or rebound. No evidence of tenderness throughout. Back: No spinal tenderness. No costovertebral tenderness. Full range of motion. Skin: Warm, dry with normal turgor. Normal color with no rashes, no lesions, and no evidence of cellulitis. Neuro: Awake and alert, GCS 15, oriented to person, place, time, and situation. Cranial nerves II-XII grossly intact. Motor strength 5/5 in all extremities. Sensory grossly intact. Cerebellar exam normal. Normal gait. Psych: Awake, alert, with orientation to person, place and time. Behavior, mood, and affect are within normal limits. 13:37 Musculoskeletal/extremity: Extremities: grossly normal except: noted in the right shoulder: decreased ROM, pain. Vital Signs: 12:18 BP 179 / 112; Pulse 113; Resp 17; Temp 98.1; Pulse Ox 98% ; Weight 89.81 kg; Height 5 jl7 ft. 3 in. (160.02 cm); Pain 10/10; 13:44 BP 158 / 88; Pulse 84; Resp 16; Pulse Ox 100% on R/A; Pain 5/10; bm7 12:18 Body Mass Index 35.07 (89.81 kg, 160.02 cm) jl7 MDM: 12:25 Patient medically screened. snw 13:38 Data reviewed: vital signs, nurses notes. Data interpreted: Pulse oximetry: on room air snw is 98 %. Interpretation: normal. Counseling: I had a detailed discussion with the patient and/or guardian regarding: the historical points, exam findings, and any diagnostic results supporting the discharge/admit diagnosis, the presence of at least one elevated blood pressure reading (>120/80) during this emergency department visit, radiology results, the need for outpatient follow up, to return to the emergency department if symptoms worsen or persist or if there are any questions or concerns that arise at home. Response to treatment: the patient's symptoms have mildly improved after treatment. Special discussion: Based on the history and exam findings, there is no indication for further emergent testing or inpatient evaluation. I discussed with the patient/guardian the need to see the orthopedic surgeon for further evaluation of the symptoms. I discussed with the patient/guardian the need to see the primary care provider for further evaluation of the symptoms. 05/29 12:27 Order name: Shoulder Right (2 View) XRAY; Complete Time: 13:28 snw 05/29 12:27 Order name: Clavicle Right XRAY; Complete Time: 13:30 snw 05/29 13:43 Order name: Recheck Blood Pressure: please document the pressures that have been snw obtained; Complete Time: 13:44 Administered Medications: 12:34 Drug: Valium (diazepam) 10 mg Route: PO; bm7 13:55 Follow up: Response: No adverse reaction bm7 12:34 Drug: [place] (HYDROcodone-acetaminophen) (7.5 mg-325 mg) 1 tabs Route: PO; bm7 13:55 Follow up: Response: Pain is unchanged, physician notified bm7 Disposition: 05/30 08:34 Co-signature as Attending Physician, Rajesh Hughes DO I was immediately available on-site ms3 in the Emergency Department for consultation in the care of the patient. . Disposition Summary: 05/29/22 13:40 Discharge Ordered Location: Home snw Condition: Stable snw Diagnosis - Contusion of right shoulder snw - Pain in right shoulder snw - Strain of other muscles, fascia and tendons at shoulder and upper arm level, right snw arm Followup: snw - With: Emergency Department - When: As needed - Reason: Worsening of condition Followup: snw - With: Parish Cyr MD - When: 1 - 2 days - Reason: Recheck today's complaints, Continuance of care, Re-evaluation by your physician Discharge Instructions: - Discharge Summary Sheet snw - Joint Pain snw - Arthritis snw - Musculoskeletal Pain snw - Shoulder Pain snw - Shoulder Range of Motion Exercises snw - How to Use Cold Therapy snw Forms: - Medication Reconciliation Form snw - Thank You Letter snw - Antibiotic Education snw - Prescription Opioid Use snw Prescriptions: - Tramadol 50 mg Oral Tablet - take 1 tablet by ORAL route every 8 hours as needed; 12 tablet; Refills: 0, snw Product Selection Permitted - orphenadrine citrate 100 mg Oral Tablet Sustained Release - take 1 tablet by ORAL route 2 times per day As needed; 20 tablet; Refills: 0, snw Product Selection Permitted Signatures: Dispatcher [employer] Cate Freire FNP-C TWO NEEDLE MACHINE OPERATOR-Csnw Aniyah Merrill, RN RN jl7 Rajesh Hughes DO DO ms3 Chica Tai, RN RN bm7
[2022-05-31 20:30] VITALS: BP 158/88; O2SAT 100
[2022-05-31 20:44] VITALS: TEMP 98.1
== END 2022-05-29 13:55 | disposition home or self-care (01) ==
LOC: ER 12:03
DX: S46.811A Strain of other muscles, fascia and tendons at shoulder and upper arm level, right arm, initial encounter (principal); S40.011A Contusion of right shoulder, initial encounter; I10 Essential (primary) hypertension; Z88.6 Allergy status to analgesic agent
CPT/HCPCS: 99284

== ENCOUNTER 2022-06-17 18:20 | Emergency (ER) | payer OTHER ==
--- OUTSIDE RECORDS SUMMARY | 2022-06-17 18:42 | XMS REPORT | Continuity of Care Document ---
:1970 Author Organization [facility] t Address [address] [place] [address] Dr. Crawford [address] [place] [id number] Care Team Providers Name Role Phone Aldo Amador Primary Care Physician [phone] DR LINDSEY CAMERON Attending Clinician Unavailable Doctor Unassigned, [place] Attending Clinician Unavailable GABRIEL GARCIA Attending Clinician Unavailable Gabriel Garcia MD Attending Clinician WILMAR MADISON Attending Clinician Unavailable WILMAR MADISON Attending Clinician Unavailable , [facility] Sleep Lab Bed Attending Clinician Unavailable Wilmar Madison MD Attending Clinician Only, [facility] Test Attending Clinician Unavailable ANAYA GUALLPA Attending Clinician [...] Clinician Unavailable Christos Tovar MD Attending Clinician Mary YI, Gely Attending Clinician WILFRID HATHAWAY Attending Clinician Unavailable Maury Brush MD Attending Clinician TeWilfrid [place] DO Attending Clinician Evelin GRAJEDA, Any Fong Attending Clinician Unavailable FLASH KIMBALL Attending Clinician Unavailable Blanca Talavera MD Attending Clinician Josie YI, Samir Attending Clinician Faraz Rodriguez MD Attending Clinician Flash Kimball MD Attending Clinician GABRIEL SHAIKH Attending Clinician Unavailable GABRIEL SHAIKH Attending Clinician Unavailable DR LINDSEY CAMERON Admitting Clinician Unavailable GABRIEL GARCIA Admitting Clinician Unavailable ANAYA GUALLPA Admitting Clinician Unavailable BRO PANDYA Admitting Clinician Unavailable JADEN RENE Admitting Clinician Unavailable MAI DEL ROSARIO Admitting Clinician Unavailable JACKLYN GUILLEN Admitting Clinician Unavailable GELY CORDOVA Admitting Clinician Unavailable Gely Cordova MD Admitting Clinician TEWILFRID [place] Admitting Clinician Unavailable TeWilfrid [place] DO Admitting Clinician FARAZ RODRIGUEZ Admitting Clinician Unavailable Faraz Rodriguez MD Admitting Clinician Payers Payer Name Policy Type Policy Number Effective Date Expiration Date S eda 0111 [id number] 2022 00:00:00 Problems Condition Condition Condition Status Onset Resolution Last Treating Co mments Source Name Details Category Date Date Treatment Clinician Date Transient Transient Disease Active Uni vers alteration alteration 6-25 it y of of of 00:00: [place] awareness awareness [facility] Transient Transient Disease Active Uni vers alteration alteration 6-25 it y of of of 00:00: [place] awareness awareness [facility] Gastric Gastric Disease Active Univers ulcer ulcer 6-22 ity of 00:00: [place] [facility] Pneumonia Pneumonia Disease Active Uni vers 4-04 ity of 00:00: [place] [facility] Acute Acute Disease Active Univers asthma asthma 4-02 ity of exacerbati exacerbati [place] Sepsis Sepsis Disease Active Univers 3-09 ity of 00:00: [place] 00 Medical [facility] Morbid Morbid Disease Active Univers obesity obesity 2-14 ity of with body with body 00:00: [place] mass index mass index 00 Me dical of of Branch 40.0-49.9 40.0-49.9 Obesity Obesity Disease Active Univers (BMI (BMI 2-12 ity of 30-39.9) 30-39.9) 00:00: [place] [facility] Acute Acute Disease Active Univers hypoxemic hypoxemic 2-12 ity of respirator respirator [place] failure y failure [facility] Chronic Chronic Disease Active Univers pain due pain due 2-04 ity of to injury to injury 00:00: [place] [facility] Dyslipidem Dyslipidem Disease Active U nivers ia ia 2-04 ity of 00:00: [place] [facility] Gastro-eso Gastro-eso Disease Active U nivrina phageal phageal 2-04 ity of reflux reflux 00:00: [place] disease disease 00 Medical with with Branch esophagiti esophagiti s, with s, with bleeding bleeding Generalize Generalize Disease Active U nivers d anxiety d anxiety 2-04 ity of disorder disorder 00:00: [place] 00 Medical Branch Pain of Pain of Disease Active Univers cervical cervical 2-04 ity of spine spine 00:00: [place] 00 Medical Branch Depo-Prove Depo-Prove Disease Active U nivers ra ra 4-13 ity of contracept contracept 00:00[place] lloyd status lloyd status 00 Me dical Branch Eczema Eczema Disease Active Univers 8-13 ity of 00:00: [place] 00 Medical Branch Essential Essential Disease Active Uni vers hypertensi hypertensi 813 it y of on on 00:00: [place] [facility] Back pain Back pain Disease [...] Active Anaphylaxis Pts Uni vers Fish Allergy 4- tongue ity of 00:00: swells/ [place] 00 difficult Medical y Branch breathing Nsaids Propensi Active Unknown - Unive rs (Non-Madan ty to See comments 2-12 it y of roidal adverse 00:00: [place] Anti-Inf reaction 00 Medica l lammator s Branch y Drug) NSAIDS Drug Active Unknown-Cmnt Univ ers (NON-MADAN Class 2-12 ity of ROIDAL 00:00: [place] ANTI-INF 00 Medical LAMMATOR Branch Y DRUG) Nsaids Propensi Active Unknown - Unive rs (Non-Madan ty to See comments 2-12 it y of roidal adverse 00:00: [place] Anti-Inf reaction 00 Medica l lammator s Branch y Drug) Nsaids Propensi Active Unknown - 2021-0 Unive rs (Non-Madan ty to See comments 2-12 it y of roidal adverse 00:00: [place] Anti-Inf reaction 00 Medica l lammator s Branch y Drug) Naproxen Propensi Active ty to 2- adverse 00:00: reaction 00 to drug naproxen DA Active [facility] 10-30 [place] [...] 00 Medical Branch Naproxen DA Active Unknown [facility] Ibuprofe DA [facility] Social History Social Habit Start Date Stop Date Quantity Comments Source History SDOH University o f Alcohol Std Drinks [place] [facility] History SDOH University o f Alcohol Binge [place] [facility] History SDOH University o f Alcohol Frequency [facility] Branch Exposure to 2022-05-21 2022-05-31 Not sure University of SARS-CoV-2 (event) 00:00:00 20:16:00 [facility] [place] Alcohol intake 2022-02-22 2022-02-22 Current drinker Unive rsity of 00:00:00 00:00:00 of alcohol [place] [facility] (finding) Branch Education 2021-10-15 2021-10-15 12 University of 00:00:00 00:00:00 [facility] [place] Tobacco Comment 2021-10-15 2021-10-15 30 years ago Univers ity of 00:00:00 00:00:00 [facility] [place] Cigarettes smoked 2021-10-15 2021-10-15 Univers ity of current (pack per 00:00:00 00:00:00 [facility] ) - Reported Branch Cigarette 2021-10-15 2021-10-15 University of pack-years 00:00:00 00:00:00 [facility] [place] Tobacco use and 2021-10-15 2021-10-15 Smokeless tobacco Un iversity of exposure 00:00:00 00:00:00 non-user [facility] [place] Alcohol Comment 2016-12-14 2016-12-14 infrequent - Univers ity of 00:00:00 00:00:00 family parties, [place] Med ical wine, 12 oz/time Branch History of tobacco 2001-12-14 Cigarette Smoker University of use 00:00:00 [facility] [place] Sex Assigned At [birth year] Universit y of 00:00:00 00:00:00 [facility] [place] Smoking Status Start Date Stop Date Source Ex-smoker 2021-10-15 00:00:00 2021-10-15 00:00:00 [facility] Medications Ordered Filled Start Stop Current Ordering Indication Dosage Frequency Signature Comments Components Source Medication Medication Date Date Medication? Clinician (SIG) Name Name ondansetron 2021- No 4mg 4 mg, Univ ers (ZOFRAN-ODT 06-01 Oral, ity of ) 02:45: 01:44 ONCE, 1 [place] disintegrat 00 :00 dose, On Medi dayna ing tablet Sun Branch 4 mg 05/31/22 at 2145, SE HYDROcodone 2021- No 1{tbl} 1 tablet, Univers -acetaminop 06-01 Oral, ity of hen (NORCO) 02:45: 01:45 ONCE, 1 [place] 10-325 mg 00 :00 dose, On Medica l tablet 1 Wed Branch tablet 05/31/22 at 2145, SE HYDROcodone 2021- Yes 4647 1{tbl} Take 1 U nivers -acetaminop 05-31 1006 tablet by it y of hen 5-325 00:00: 04:59 mouth [place] mg tablet 00 :00 every 6 Medical (six) Branch hours as needed for Pain (scale 7-10) for up to 7 days. Indication s: acute pain &lt 2021-0 No 8-13 00:00: 00 TAKE 1 2021-0 No 500 TABLET BY 8-12 MOUTH EVERY 00:00: DAY FOR 7 00 DAYS &lt 2021-0 No 20 8- 00:00: 00 TAKE 1 2021-0 No 75 TABLET BY 8-12 MOUTH TWICE 00:00: A DAY 00 &lt 2021-0 No 1 - 00:00: 00 &lt 2021-0 No 8- 00:00: 00 Dose 2021-0 No Unknown - 00:00: 00 &lt 2021-0 No 100 7-15 00:00: 00 enoxaparin 2021-0 Yes 40mg 40 mg, Unive rs (LOVENOX) 6-26 Subcutaneo ity of injection 14:00: [place], DAILY, [place] 40 mg 00 First dose Medical on [place] Branch 02/26/22 at 0900, Until Discontinu ed, Routine amLODIPine 2021-0 Yes 10mg 10 mg, Unive rs (NORVASC) 6-26 Oral, ity of tablet 10 14:00: DAILY, [place] mg 00 First dose Medical on [place] Branch 02/26/22 at 0900, Until Discontinu ed, Routine celecoxib 2-0 Yes 100mg Take 100 Uni vers (CELEBREX) 6-26 mg by ity of 100 mg 12:37: mouth 2 [place] capsule 35 (two) Medical times Branch daily with meals. amLODIPine 2-0 Yes 10mg Take 10 mg U nivers 10 mg 6-26 by mouth ity of tablet 12:37: daily. [address] FLUoxetine 202-0 Yes 10mg Take 10 mg U nivers 10 mg 6-26 by mouth ity of capsule 12:37: daily. [address] traMADoL 2022-0 Yes 100mg Take 100 [...] by mouth ity of tablet 12:37: daily. [address] FLUoxetine 2022-0 Yes 10mg Take 10 mg U nivers 10 mg 6-26 by mouth ity of capsule 12:37: daily. [address] traMADoL 2022-0 Yes 100mg Take 100 [...] by mouth ity of tablet 12:37: daily. [address] FLUoxetine 2022-0 Yes 10mg Take 10 mg U nivers 10 mg 6-26 by mouth ity of capsule 12:37: daily. [address] traMADoL 2022-0 Yes 100mg Take 100 [...] by mouth ity of tablet 12:37: daily. [address] FLUoxetine 2022-0 Yes 10mg Take 10 mg U nivers 10 mg 6-26 by mouth ity of capsule 12:37: daily. [address] traMADoL 2022-0 Yes 100mg Take 100 [...] by mouth ity of tablet 12:37: daily. [address] FLUoxetine 2022-0 Yes 10mg Take 10 mg U nivers 10 mg 6-26 by mouth ity of capsule 12:37: daily. [address] traMADoL 2022-0 Yes 100mg Take 100 [...] by mouth ity of tablet 12:37: daily. [address] FLUoxetine 2022-0 Yes 10mg Take 10 mg U nivers 10 mg 6-26 by mouth ity of capsule 12:37: daily. [place] [facility] traMADoL 0 Yes 100mg Take 100 Univ ers 100 mg 6-26 mg by ity of capsule 12:37: mouth [place] 35 every 6 Medical (six) Branch hours as needed. ondansetron 0 Yes 4mg 4 mg, Slow Univers (ZOFRAN 02-26 IV Push, ity of (PF)) 04:30: Q6HPRN, [place] injection 4 54 Starting Medi dayna mg on [facility] 02/25/22 at 2330, Until Discontinu ed, Routine, Nausea and Vomiting (N/V) acetaminoph 0 Yes 650mg 650 mg, Un guillermina en 02-26 Oral, ity of (TYLENOL) 04:30: Q6HPRN, [place] tablet 650 45 Starting Medic al mg on [facility] 02/25/22 at 2330, Until Discontinu ed, Routine, Pain (scale 1-3) ondansetron 0 2021- No 4mg 4 mg, Slow Univers (ZOFRAN 02-23 IV Push, ity of (PF)) 05:45: 04:58 ONCE, 1 [place] injection 4 00 :00 dose, On Medi dayna mg [facility] 02/23/22 at 0045, SE morpHINE (4 2021- No 4mg 4 mg, Slow Univers mg/mL) 02-23 IV Push, ity of injection 4 05:45: 04:58 ONCE, 1 [place] mg 00 :00 dose, On Medical [facility] 02/23/22 at 0045, STAT acetaminoph 0 2021- No 1000mg 1,000 mg, Univers en 02-23 Oral, ity of (TYLENOL) 04:00: 03:13 ONCE, 1 [place] tablet 00 :00 dose, On Medical 1,000 mg [facility] 02/22/22 at 2300, SE methocarbam 0 2021- No 1000mg 1,000 mg, Univers oL 02-23 Oral, ity of (ROBAXIN) 04:00: 03:14 ONCE, 1 [place] tablet 00 :00 dose, On Medical 1,000 mg [facility] 02/22/22 at 2300, SE TAKE 1 2022-0 No CAPSULE BY 6-20 MOUTH EVERY 00:00: DAY 00 &lt 2022-0 No 6-16 00:00: 00 Dose 2022-0 No Unknown 6-09 00:00: 00 &lt 2022-0 No 6-09 00:00: 00 TAKE 1 2022-0 No TABLET BY 6-09 MOUTH TWICE 00:00: A DAY FOR 30 DAYS &lt 2022-0 No 6-09 00:00: 00 TAKE 1 2022-0 No TABLET BY 6-09 MOUTH TWICE 00:00: A DAY FOR 30 DAYS TAKE 1 2022-0 No TABLET BY 6-09 MOUTH TWICE 00:00: A DAY FOR 30 DAYS &lt 2022-0 No 6-09 00:00: 00 TAKE 1 2022-0 No TABLET BY 6-09 MOUTH EVERY 00:00: 12 HOURS 00 NEEDED Dose 2022-0 No Unknown 6-09 00:00: 00 &lt 2022-0 No 6-09 00:00: 00 Dose 2022-0 No Unknown 6- 00:00: 00 &lt 2022-0 No 6-03 00:00: 00 Dose 2022-0 No Unknown 6- 00:00: 00 TAKE 1 2022-0 No TABLET BY 6- MOUTH EVERY 00:00: 12 HOURS 00 NEEDED Dose 2022-0 No Unknown 6- 00:00: 00 metformin 2022-0 No 1mg 500 mg 5-31 tablet 00:00: 00 Dose 2022-0 No Unknown 5-31 00:00: 00 &lt 2022-0 No 5-31 00:00: 00 TAKE 1 2022-0 No TABLET BY 5-31 MOUTH TWICE 00:00: A DAY 00 TAKE 2 2022-0 No PUFFS BY 5-31 MOUTH EVERY 00:00: 4 TO 6 00 HOURS &lt 2022-0 No 5-31 00:00: 00 TAKE 1 2022-0 No CAPSULE BY 5-31 MOUTH EVERY 00:00: DAY 00 TAKE 6 2022-0 No TABLETS ON 01-31 DAY 1 00:00: DIRECTED ON 00 PACKAGE AND DECREASE BY 1 TAB EACH DAY FOR A TOTAL OF 6 DAYS TAKE 1 2022-0 No TABLET BY 5-31 MOUTH TWICE 00:00: A DAY 00 TAKE 2 2022-0 No PUFFS BY 5-31 MOUTH EVERY 00:00: 4 TO 6 00 HOURS TAKE 2 No PUFFS BY - MOUTH EVERY 00:00: 4 TO 6 00 HOURS Dose 2021-0 No Unknown 01-31 00:00: 00 &lt 2021-0 No 01-31 00:00: 00 TAKE 6 2021-0 No TABLETS ON 01-31 DAY 1 00:00: DIRECTED ON 00 PACKAGE AND DECREASE BY 1 TAB EACH DAY FOR A TOTAL OF 6 DAYS ipratropium 2021- No 3mL 3 mL, Univ [...] 00 :00 dose, On Medica l %) [place] Branch nebulizer 01/29/22 at solution 5 0915, SE mg Dose No Unknown 5-28 00:00: 00 Dose 2021-0 No Unknown 5-28 00:00: 00 Dose 2021-0 No Unknown 5-28 00:00: 00 Dose 2021-0 No Unknown 5-28 00:00: 00 Dose 2021-0 No Unknown 5-28 00:00: 00 FENTanyl PF 2021- No 50ug 50 mcg, Un guillermina (SUBLIMAZE 01-03-03 Intramuscu it y of (PF)) 04:45: 04:36 lar, ONCE, [place] injection 00 :00 1 dose, On Medi dayna 50 mcg 01/02/22 Branch at 2345, Routine celecoxib Yes 100mg Take 100 Uni vers (CELEBREX) 4-06 mg by ity of 100 mg 12:53: mouth 2 [place] capsule 05 (two) Medical times Branch daily with meals. amLODIPine 0 Yes 10mg Take 10 mg U nivers 10 mg 4-06 by mouth ity of tablet 12:53: daily. [address] FLUoxetine 2022-0 Yes 10mg Take 10 mg U nivers 10 mg 4-06 by mouth ity of capsule 12:53: daily. [address] traMADoL 2022-0 Yes 100mg Take 100 [...] by mouth ity of tablet 12:53: daily. [address] FLUoxetine 2022-0 Yes 10mg Take 10 mg U nivers 10 mg 4-06 by mouth ity of capsule 12:53: daily. [address] traMADoL 2022-0 Yes 100mg Take 100 [...] by mouth ity of tablet 12:53: daily. [address] FLUoxetine 2022-0 Yes 10mg Take 10 mg U nivers 10 mg 4-06 by mouth ity of capsule 12:53: daily. [address] traMADoL 2022-0 Yes 100mg Take 100 [...] by mouth ity of tablet 12:53: daily. [address] FLUoxetine 2022-0 Yes 10mg Take 10 mg U nivers 10 mg 4-06 by mouth ity of capsule 12:53: daily. [address] traMADoL 2021-0 Yes 100mg Take 100 [...] by mouth ity of tablet 12:53: daily. [address] FLUoxetine 2021-0 Yes 10mg Take 10 mg U nivers 10 mg 4-06 by mouth ity of capsule 12:53: daily. [address] traMADoL 2021-0 Yes 100mg Take 100 Univ ers 100 mg 4-06 mg by ity of capsule 12:53: mouth [place] [id number] every 6 Medical (six) Branch hours as needed. celecoxib 2021-0 Yes 100mg Take 100 Uni vers (CELEBREX) 4-06 mg by ity of 100 mg 12:53: mouth 2 [place] capsule 05 (two) Medical times Branch daily with meals. amLODIPine 2021-0 Yes 10mg Take 10 mg U nivers 10 mg 4-06 by mouth ity of tablet 12:53: daily. [address] FLUoxetine 2021-0 Yes 10mg Take 10 mg U nivers 10 mg 4-06 by mouth ity of capsule 12:53: daily. [address] traMADoL 2021-0 Yes 100mg Take 100 Univ ers 100 mg 4-06 mg by ity of capsule 12:53: mouth [place] [address] every 6 Medical (six) Branch hours as needed. predniSONE 2021-0 2021- No 10mg Take 10 mg Univers 10 mg 4-06 04-06 by mouth ity of tablet 10:31: 00:00 daily. [place] 31 :00 [facility] hydrALAZINE 2-0 2022- No 100mg Take 100 Univers 100 mg 4-06 04-06 mg by ity of tablet 10:31: 00:00 mouth 2 [place] 31 :00 (two) Medical times Branch daily. cefTRIAXone 2022-0 2021- No 2000mg 2,000 mg, Univers (ROCEPHIN) 4-06 04-11 Intravenou it y of injection 05:00: 04:59 s, Q24H [place] 2,000 mg 00 :00 ABX, 5 Medical doses, Sherin First dose on Sun12/07/21 at 0000, Last dose on Sun12/11/21 at 0000
Re ason for Anti-Infec tive: Documented Infection< br>Documen britney Infection Site: Respirator y
Durat ion of Therapy: 7 days predniSONE 2021- No [id number] Take 2 Univers 10 mg 12-07 tablets by ity of tablet 00:00: 04:59 mouth [place] 00 :00 daily for Medical 5 days, Branch THEN 1 tablet daily for 5 days, THEN 0.5 tablets daily for 5 days. predniSONE 2021- No [id number] Take 2 Univers 10 mg 12-07 tablets by ity of tablet 00:00: 04:59 mouth [place] 00 :00 daily for Medical 5 days, Branch THEN 1 tablet daily for 5 days, THEN 0.5 tablets daily for 5 days. azithromyci 2021- No [id number] 500mg Take 1 Univers n 500 mg 12-07 tablet by ity o f tablet 00:00: 04:59 mouth [place] 00 :00 daily for Medical 2 days. Sherin azithromyci 2021- No [id number] 500mg Take 1 Univers n 500 mg 12-07 tablet by ity o f tablet 00:00: 04:59 mouth [place] 00 :00 daily for Medical 2 days. [place] traMADoL Yes 50mg 50 mg, Univers (ULTRAM) 12-06 Oral, ity of tablet 50 16:44: Q6HPRN, [place] mg 28 Starting Medical on Sun12/06/21 at 1144, Until Discontinu ed, Routine, Pain (scale 4-6) ALPRAZolam Yes .5mg 0.5 mg, Univ ers (XANAX) 4-05 Oral, ity of tablet 0.5 16:43: BIDPRN, [place] mg 05 Starting Medical on Sun [place] 12/06/21 at 1143, Until Discontinu ed, Routine, anxiety HYDROcodone Yes 1{tbl} 1 tablet, Univers -acetaminop 4-05 Oral, ity of hen (NORCO 16:42: Q6HPRN, [place] 5) 5-325 mg 38 Starting Medi dayna tablet 1 on [facility] tablet 12/06/21 at 1142, Until Discontinu ed, Routine, Pain (scale 7-10) azithromyci 0 202- No 500mg 500 mg, IV Univers n 4-05 04-08 Piggyback, ity of (ZITHROMAX) 14:45: 14:44 Q24H ABX, [place] 500 mg in 00 :00 3 doses, Medica l NaCl 0.9% First dose Bran ch (NS) [address] [facility] 12/06/21 at IV 0945, Last piggyback dose on [facility] 12/08/21 at 0945, Administer over 60 Minutes, 250 mL
Reas on for Anti-Infec tive: Empiric Therapy for Suspected Infection< br>Empiric Therapy Site: Respirator y
Durat ion of therapy: 72 hours KCL Yes 40meq 40 mEq, Univers (KLOR-CON 4-05 Oral, ity of M20) tablet 14:00: DAILY, [place] 40 mEq 00 First dose Medical on [facility] 12/06/21 at 0900, Until Discontinu ed, Routine enoxaparin Yes 40mg 40 mg, Unive rs (LOVENOX) 4-05 Subcutaneo ity of injection 14:00: us, Q24H, [place] as 40 mg 00 First dose Medical on [facility] 12/06/21 at 0900, Until Discontinu ed, Routine predniSONE 0 Yes 20mg 20 mg, Unive rs (DELTASONE) 4-05 Oral, ity of tablet 20 14:00: DAILY, [place] mg 00 First dose Medical on [facility] 12/06/21 at 0900, Until Discontinu ed, Routine FLUoxetine 0 Yes 20mg 20 mg, Unive rs (PROZAC) 4-05 Oral, ity of capsule 20 14:00: DAILY, [place] mg 00 First dose Medical on [facility] 12/06/21 at 0900, Until Discontinu ed, Routine amLODIPine Yes 5mg 5 mg, Univer s (NORVASC) 12-06 Oral, ity of tablet 5 mg 14:00: DAILY, [place] 00 First dose Medical on Sun12/06/21 at 0900, Until Discontinu ed, Routine magnesium Yes 400mg 400 mg, Univ ers oxide 12-06 Oral, BID, ity of (MAG-OX 13:00: First dose [place] 400) tablet 00 on Sun Medica l 400 mg 12/06/21 at Branch 0800, Until Discontinu ed, Routine ipratropium Yes 3mL 3 mL, Unive rs -albuteroL 12-06 Inhalation ity of (DUONEB) [...] stricted use approved by: [employer] traMADoL 2021- No 50mg 50 mg, Univer s (ULTRAM) 12-06 Oral, ity of tablet 50 08:14: 16:44 Q6HPRN, [place] mg 42 :40 Starting Medical on Sun12/06/21 at 0314, Until Sun12/06/21 at 1144, Routine, Pain (scale 7-10) HYDROcodone 2021- No 1{tbl} 1 tablet, [facility] -acetaminop 12-06-05 Oral, ity of hen (NORCO) 06:00: 04:59 ONCE, 1 [place] 10-325 mg 00 :00 dose, On Medica l tablet 1 Sun12/06/21 Branc h tablet at 0100, Routine fluticasone Yes 1{puff} 1 Puff, [facility] propion-lavon - Inhalation it y of meteroL 13:00: , Q12H, [place] (ADVAIR) 00 First dose Medic al 250-50 on Sun Branch mcg/dose 12/05/21 at inhalation 0800, disk 1 Puff Until Discontinu ed, Routine lurasidone 2021- No Take by Uni vers HCl (LATUDA 12-05-04 mouth. ity o f ORAL) 05:43: 00:00 [place] 55 :00 Medical Branch acetylcyste 2021- No 4mL 800 mg (4 Univers ine 12-05 04-07 mL), ity of (MUCOMYST) 05:00: 04:59 Inhalation [place] 200 mg/mL 00 :00 , Q6H, 12 Medic al (20 %) doses, Branch solution First dose 800 mg on Sun12/05/21 at 0000, Last dose on Sun12/07/21 at 1800, Routine cefTRIAXone Yes 1000mg 1,000 mg, [facility] (ROCEPHIN) 12-05 IV ity of 1,000 mg in 03:00: Piggyback, [place] NaCl 0.9% 00 Q24H ABX, Medic al (NS) 50 mL First dose Bra nch MINI-BAG on Sun12/04/21 at 2200, Until Discontinu [...] 60mg 60 mg, Univ ers isolone sod 12-05 Slow IV ity o f succ 02:00: [...] Routine, Pain (scale 4-6) iopamidol 2021- No [id number] 100mL 100 mL, Univers (ISOVUE 12-04- Intravenou [...] 00 First dose Medical on [facility] 12/04/21 at 0730, Until Discontinu ed doxycycline 0 Yes 100mg 100 mg, Un guillermina hyclate 12-04 Oral, ity of (Vibramycin 11:00: Q12HA2, [place] as ) capsule 00 First dose Medi dayna 100 mg on [facility] 12/04/21 at 0600, Until Discontinu ed, SE
Re ason for Anti-Infec tive: Empiric Therapy for Suspected Infection< br>Empiric Therapy Site: Respirator y
Du ration of therapy: 7 days NaCl 0.9% 2021- No 500mL at 100 [facility] ers (NS) IV 12-04 04-03 mL/hr, IV ity of infusion 11:00: 15:59 Infusion, [place] as 500 mL 00 :00 CONTINUOUS Medical , Starting Branch on [place] 12/04/21 at 0600, Until [place] 12/04/21 at 1059, Routine zolpidem Yes 5mg 5 mg, Univers (AMBIEN) 12-04 Oral, ity of tablet 5 mg 06:14: QHSPRN, [place] as 57 Starting Medical on [facility] 12/04/21 at 0114, Until Discontinu ed, Routine, Insomnia docusate Yes 100mg 100 mg, Unive rs (COLACE) 12-04 Oral, BID, ity o f capsule 100 01:00: First dose [place] mg 00 on [facility] 12/03/21 at Branch 1999, Until Discontinu ed, Routine busPIRone Yes 5mg 5 mg, Univers (BUSPAR) 12-04 Oral, BID, ity o f tablet 5 mg 01:00: First dose [place] 00 on [facility] 12/03/21 at Branch 1999, Until Discontinu ed, Routine ipratropium 2021- No 3mL 3 mL, [facility] ers -albuteroL 12-04 04-04 Inhalation it y of (DUONEB) 01:00: 01:56 , QID, [place] 0.5 mg-3 00 :47 First dose Medic al mg(2.5 mg on [facility] base)/3 mL 12/03/21 at nebulizer 2000, solution 3 Until mL Discontinu ed, Routine ondansetron Yes 4mg 4 mg, Slow Univers (ZOFRAN 12-03 IV Push, ity of (PF)) 22:05: Q6HPRN, [place] injection 4 11 Starting Medi dayna mg on [facility] 12/03/21 at 1705, Until Discontinu ed, Routine, Nausea and Vomiting (N/V) HYDROcodone 2021- No 1{tbl} 1 tablet, Univers -acetaminop 12-03 Oral, ity of hen (NORCO 22:05: 01:56 Q6HPRN, [place] as 5) 5-325 mg 07 :02 Starting Medi dayna tablet 1 on [facility] tablet 12/03/21 at 1705, Until 12/04/21 at 2055, Routine, Pain (scale 4-6) acetaminoph Yes 650mg 650 mg, Un guillermina en 12-03 Oral, ity of (TYLENOL) 22:05: Q6HPRN, [place] tablet 650 04 Starting Medic al mg on [facility] 12/03/21 at 1705, Until Discontinu ed, Routine, Pain (scale 1-3) methylpredn 2021- No 125mg 125 mg, U nivers isolone sod 12-03 Slow IV ity of succ 21:00: 22:03 Push, ONCE [place] (SOLU-MEDRO 00 :00 NOW, 1 Medica l L) dose, On [place] injection [facility] 12/03/21 125 mg at 1600, SE albuterol 2021- No 2.5mg 2.5 mg, Uni vers (PROVENTIL) 12-03 Inhalation i ty of 2.5 mg /3 21:00: 22:06 , QID, [place] mL (0.083 00 :33 First dose Medi dayna %) on [facility] nebulizer 12/03/21 at solution 1600, 2.5 mg Until Discontinu ed, Routine ipratropium 2021- No .5mg 0.5 mg, Un guillermina (ATROVENT) 12-03 Inhalation it y of 0.02 % 21:00: 22:06 , QID, [place] nebulizer 00 :24 First dose Medi dayna solution on Sat Branch 0.5 mg 12/03/21 at 1600, Until [...] therapy: 72 hours lurasidone Yes Take by Univ ers HCl (LATUDA 3-11 mouth. ity of ORAL) 17:32: [address] lurasidone Yes Take by Univ ers HCl (LATUDA 3-11 mouth. ity of ORAL) 17:32: [address] lurasidone Yes Take by Univ ers HCl (LATUDA 3-11 mouth. ity of ORAL) 17:32: [address] KCL 2021-0 202- No 20meq 20 mEq, Univers (KLOR-CON -11 03-11 Oral, ity of M20) tablet 02:00: 02:20 ONCE, 1 [place] 20 mEq 00 :00 dose, On Medical [place] Branch 11/10/21 at 2000, Routine predniSONE 2021-0 Yes [id number] 20mg Take 1 Univers 20 mg 3-11 tablet by ity of tablet 00:00: mouth [place] 00 daily. [facility] predniSONE 2021-0 Yes [id number] 20mg Take 1 Univers 20 mg 3-11 tablet by ity of tablet 00:00: mouth [place] 00 daily. [facility] predniSONE 2021-0 202- No [id number] 20mg Take 1 Univers 20 mg 3-11 04-04 tablet by ity of tablet 00:00: 00:00 mouth [place] 00 :00 daily. [facility] piperacilli 2021-0 202- No 3.375g 3.375 g, Univers n-tazobacta 11-10 IV ity of m (ZOSYN) 22:00: 21:01 [place], [place] 3.375 g in 00 :00 Q8H ABX, Medic al NaCl 0.9% First dose Bran ch (NS) 100 mL on [facility] VIAL-MATE 11/10/21 at 1600, Until Discontinu ed, Administer over 4 Hours, 100 mL
Reas on for Anti-Infec tive: Empiric Therapy for Suspected Infection< br>Empi leandro Therapy Site: Respirator y
Durat ion of therapy: 72 hours enoxaparin 2021-0 Yes 40mg 40 mg, Unive rs (LOVENOX) 3-10 Subcutaneo ity of injection 15:00: [place], [place]ILY, [place] 40 mg 00 First dose Medical on [facility] Branch 11/10/21 at 0900, Until Discontinu ed, Routine hydroCHLORO 2021-0 Yes 12.5mg 12.5 mg, Univers thiazide 3-10 Oral, ity of (ESIDRIX) 15:00: DAILY, [place] capsule 00 First dose Medica l 12.5 mg on [facility] Branch 11/10/21 at 0900, Until Discontinu ed, Routine amLODIPine 2021-0 Yes 10mg 10 mg, Unive rs (NORVASC) 3-10 Oral, ity of tablet 10 15:00: DAILY, [place] mg 00 First dose Medical on [facility] Branch 11/10/21 at 0900, Until Discontinu ed, Routine predniSONE 2021-0 2021- No 40mg 40 mg, Univ ers (DELTASONE) 11-1011 Oral, ity of tablet 40 15:00: 17:05 DAILY, [place] mg 00 :49 First dose Medical on [facility] Branch 11/10/21 at 0900, Until Discontinu ed, Routine docusate 2021-0 Yes 100mg 100 mg, Unive rs (COLACE) 3-10 Oral, BID, ity o f capsule 100 14:00: First dose [place] mg 00 on [facility] 11/10/21 at Branch 0800, Until Discontinu ed, Routine busPIRone 0 Yes 5mg 5 mg, Univers (BUSPAR) 3-10 Oral, BID, ity o f tablet 5 mg 14:00: First dose [place] 00 on [facility] 11/10/21 at Branch 0800, Until Discontinu ed, Routine lurasidone 2021-0 Yes 20mg 20 mg, Unive rs (LATUDA) 3-10 Oral, ity of tablet 20 13:30: QAM-0730, [place] mg 00 First dose Medical on [facility] 11/10/21 at 0730, Until Discontinu ed morpHINE 2021-0 Yes 2mg 2 mg, Slow Uni vers injection 2 3-10 IV Push, ity of mg 07:05: Q4HPRN, [place] 58 Starting Medical on [facility] 11/10/21 at 0105, Until Discontinu ed, Routine, Pain (scale 7-10) ondansetron 2021-0 Yes 4mg 4 mg, Slow Univers (ZOFRAN 3-10 IV Push, ity of (PF)) 05:19: [place], [place] injection 4 35 Starting Medi dayna mg on [facility] Branch 11/09/21 at 2319, Until Discontinu ed, Routine, Nausea and Vomiting (N/V) HYDROcodone 2021-2021- No 1{tbl} 1 tablet, Univers -acetaminop 3-10 03-12 Oral, ity of hen (NORCO 05:19: 05:18 Q6HPRN, [place] as 5) 5-325 mg 30 :30 Starting Medi dayna tablet 1 on [place] tablet 11/09/21 at 2319, Until 11/11/21 at 2318, Routine, Pain (scale 4-6) acetaminoph 2021-0 Yes 650mg 650 mg, Un guillermina en 3-10 Oral, ity of (TYLENOL) 05:19: Q6HPRRome, [place] tablet 650 28 Starting Medic al mg on [facility] Branch 11/09/21 at 2319, Until Discontinu ed, Routine, Pain (scale 1-3) albuterol 2021-0 Yes 2{puff} 2 Puff, Un guillermina (VENTOLIN) 3-10 Inhalation ity of inhaler 2 05:17: , Q6HPRN, [place] as Puff 52 Starting Medical on Wed Branch 11/09/21 at 2317, Until Discontinu ed, Routine, Wheezing, Shortness of Breath iopamidol 2021- No [id number] 100mL 100 mL, Univers (ISOVUE 11-10 Intravenou ity of 370-500 mL) 04:43: 04:44 s, ONCE, 1 [place] injection 00 :00 dose, On Medica l 100 mL Sun11/09/21 Branch at 2300, Routine morpHINE 2021- No 4mg 4 mg, Slow Un guillermina injection 4 11-10-10 IV Push, ity of mg 03:45: 02:57 [...] Medical Infusion, Branch ONCE, 1 dose, On 11/09/21 at 2145, SE ondansetron 2021- No 4mg 4 mg, Slow Univers (ZOFRAN 11-10-10 IV Push, ity of (PF)) 03:00: 01:59 ONCE, 1 [place] injection 4 00 :00 dose, On Medi dayna mg 11/09/21 Branch at 2100, SE morpHINE 2021- No [...] Until Discontinu ed, Routine hydroCHLORO 2021-0 Yes [id number] 12.5mg Take 1 Univers thiazide 2-22 capsule by ity o f 12.5 mg 00:00: mouth [place] capsule 00 daily. Medical Branch hydroCHLORO Yes [id number] 12.5mg Take 1 Univers thiazide 2-22 capsule by ity o f 12.5 mg 00:00: mouth [place] capsule 00 daily. [facility] hydroCHLORO Yes [id number] 12.5mg Take 1 Univers thiazide 2-22 capsule by ity o f 12.5 mg 00:00: mouth [place] capsule 00 daily. [facility] hydroCHLORO 2021-0 Yes [id number] 12.5mg Take 1 Univers thiazide 2-22 capsule by ity o f 12.5 mg 00:00: mouth [place] capsule 00 daily. [facility] hydroCHLORO 0 Yes [id number] 12.5mg Take 1 Univers thiazide 2-22 capsule by ity o f 12.5 mg 00:00: mouth [place] capsule 00 daily. [facility] hydroCHLORO 2021-0 Yes [id number] 12.5mg Take 1 Univers thiazide 2-22 capsule by ity o f 12.5 mg 00:00: mouth [place] capsule 00 daily. [facility] hydroCHLORO 2021- Yes [id number] 12.5mg Take 1 Univers thiazide 2-22 capsule by ity o f 12.5 mg 00:00: mouth [place] capsule 00 daily. Medical Branch hydroCHLORO 2021-0 2021- No [id number] 12.5mg Take 1 Univers thiazide 2-22 04-04 capsule by ity of 12.5 mg 00:00: 00:00 mouth [place] capsule 00 :00 daily. Medical Branch hydroCHLORO 2021-0 2021- No [id number] 12.5mg Take 1 Univers thiazide 2-22 02-21 capsule by ity of 12.5 mg 00:00: 00:00 mouth [place] capsule 00 :00 daily for Medical 30 days. Branch hydroCHLORO 2021-0 2021- No [id number] 12.5mg Take 1 Univers thiazide 2-22 -21 capsule by ity of 12.5 mg 00:00: 00:00 mouth [place] capsule 00 :00 daily for Medical 30 days. Branch lurasidone Yes Take by Univ ers HCl (LATUDA 2-21 mouth. ity of ORAL) 17:53: [place] [address] Medical Branch lurasidone Yes Take by Univ ers HCl (LATUDA 2-21 mouth. ity of ORAL) 17:53: [place] [address] Medical Branch lurasidone Yes Take by Univ ers HCl (LATUDA 2-21 mouth. ity of ORAL) 17:53: [place] [address] Medical Branch lurasidone Yes Take by Univ ers HCl (LATUDA 2-21 mouth. ity of ORAL) 10:59: [address] Branch zolpidem 0 2021- No 5mg 5 mg, Univers (AMBIEN) -24 10- Oral, ity of tablet 5 mg 04:00: 03:07 ONCE, 1 [place] 00 :00 dose, On Medical [place] Branch 10/23/21 at 2200, Routine docusate 0 Yes [id number] 100mg Take 1 U nivers 100 mg 2-21 capsule by ity of capsule 00:00: mouth 2 [place] (two) Medical times Branch daily. busPIRone 5 2021-0 Yes [id number] 5mg Take 1 Univers mg tablet 2-21 tablet by ity o f 00:00: mouth 2 [place] (two) Medical times Branch daily. chlorhexidi 0 Yes [id number] 15mL Swish and Univers ne 0.12 % 2-21 spit out ity of mouthwash 00:00: 15 mL 2 (two) Medical times Branch daily. albuterol 2021-0 Yes [id number] 2{puff} Inhale 2 Univers 90 2-21 Puffs ity of mcg/actuati 00:00: every 6 [place] on inhaler 00 (six) Medical hours as Branch needed for Wheezing or Shortness of Breath. predniSONE 2021-0 Yes [id number] 40mg Take 2 Univers 20 mg 2-21 tablets by ity of tablet 00:00: mouth daily. Medical Branch docusate 2021-0 Yes [id number] 100mg Take 1 U nivers 100 mg 2-21 capsule by ity of capsule 00:00: mouth (two) Medical times Branch daily. busPIRone 5 2021-0 Yes [id number] 5mg Take 1 Univers mg tablet 2-21 tablet by ity o f 00:00: mouth (two) Medical times Branch daily. chlorhexidi 2021-0 Yes [id number] 15mL Swish and Univers ne 0.12 % 2-21 spit out ity of mouthwash 00:00: 15 mL 2 (two) Medical times Branch daily. albuterol 2021-0 Yes [id number] 2{puff} Inhale 2 Univers 90 2-21 Puffs ity of mcg/actuati 00:00: every 6 [place] on inhaler 00 (six) Medical hours as Branch needed for Wheezing or Shortness of Breath. predniSONE 2021-0 Yes [id number] 40mg Take 2 Univers 20 mg 2-21 tablets by ity of tablet 00:00: mouth daily. Medical Branch docusate 2021-0 Yes [id number] 100mg Take 1 U nivers 100 mg 2-21 capsule by ity of capsule 00:00: mouth (two) Medical times Branch daily. busPIRone 5 2021-0 Yes [id number] 5mg Take 1 Univers mg tablet 2-21 tablet by ity o f 00:00: mouth (two) Medical times Branch daily. chlorhexidi 2-0 Yes [id number] 15mL Swish and Univers ne 0.12 % 2-21 spit out ity of mouthwash 00:00: 15 mL 2 (two) Medical times Branch daily. albuterol 2021-0 Yes [id number] 2{puff} Inhale 2 Univers 90 2-21 Puffs ity of mcg/actuati 00:00: every 6 [place] on inhaler 00 (six) Medical hours as Branch needed for Wheezing or Shortness of Breath. predniSONE 2-0 Yes [id number] 40mg Take 2 Univers 20 mg 2-21 tablets by ity of tablet 00:00: mouth [place] daily. Medical Branch docusate 2021-0 Yes [id number] 100mg Take 1 U nivers 100 mg 2-21 capsule by ity of capsule 00:00: mouth (two) Medical times Branch daily. busPIRone 5 2021-0 Yes [id number] 5mg Take 1 Univers mg tablet 2-21 tablet by ity o f 00:00: mouth (two) Medical times Branch daily. chlorhexidi 2021-0 Yes [id number] 15mL Swish and Univers ne 0.12 % 2-21 spit out ity of mouthwash 00:00: 15 mL 2 (two) Medical times Branch daily. albuterol 2021-0 Yes [id number] 2{puff} Inhale 2 Univers 90 2-21 Puffs ity of mcg/actuati 00:00: every 6 [place] as on inhaler 00 (six) Medical hours as Branch needed for Wheezing or Shortness of Breath. docusate 2-0 Yes [id number] 100mg Take 1 U nivers 100 mg 2-21 capsule by ity of capsule 00:00: mouth (two) Medical times Branch daily. albuterol 2021-0 Yes [id number] 2{puff} Inhale 2 Univers 90 2-21 Puffs ity of mcg/actuati 00:00: every 6 [place] as on inhaler 00 (six) Medical hours as Branch needed for Wheezing or Shortness of Breath. busPIRone 5 2-0 Yes [id number] 5mg Take 1 Univers mg tablet 2-21 tablet by ity o f 00:00: mouth 2 (two) Medical times Branch daily. chlorhexidi 2-0 Yes [id number] 15mL Swish and Univers ne 0.12 % 2-21 spit out ity of mouthwash 00:00: 15 mL 2 (two) Medical times Branch daily. docusate 2021-0 Yes [id number] 100mg Take 1 U nivers 100 mg 2-21 capsule by ity of capsule 00:00: mouth 2 (two) Medical times Branch daily. busPIRone 5 2021-0 Yes [id number] 5mg Take 1 Univers mg tablet 2-21 tablet by ity o f 00:00: mouth 2 (two) Medical times Branch daily. chlorhexidi 2021-0 Yes [id number] 15mL Swish and Univers ne 0.12 % 2-21 spit out ity of mouthwash 00:00: 15 mL (two) Medical times Branch daily. albuterol 2021-0 Yes [id number] 2{puff} Inhale 2 Univers 90 2-21 Puffs ity of mcg/actuati 00:00: every 6 [place] as on inhaler 00 (six) Medical hours as Branch needed for Wheezing or Shortness of Breath. docusate 2021-0 Yes [id number] 100mg Take 1 U nivers 100 mg 2-21 capsule by ity of capsule 00:00: mouth (two) Medical times Branch daily. busPIRone 5 2021-0 Yes [id number] 5mg Take 1 Univers mg tablet 2-21 tablet by ity o f 00:00: mouth (two) Medical times Branch daily. chlorhexidi 2021-0 Yes [id number] 15mL Swish and Univers ne 0.12 % 2-21 spit out ity of mouthwash 00:00: 15 mL 2 [place] (two) Medical times Branch daily. albuterol 2021-0 Yes [id number] 2{puff} Inhale 2 Univers 90 2-21 Puffs ity of mcg/actuati 00:00: every 6 [place] as on inhaler 00 (six) Medical hours as Branch needed for Wheezing or Shortness of Breath. docusate 2021-0 2- No [id number] 100mg Take 1 Univers 100 mg 2-21 04-04 capsule by ity of capsule 00:00: 00:00 mouth 2 [place] 00 :00 (two) Medical times Branch daily. busPIRone 5 2021- No [id number] 5mg Take 1 Univers mg tablet 10-24-04 tablet by ity of 00:00: 00:00 mouth 2 [place] 00 :00 (two) Medical times Branch daily. chlorhexidi 2021- No [id number] 15mL Swish and Univers ne 0.12 % 10-24-04 spit out ity o f mouthwash 00:00: 00:00 15 mL 2 [place] 00 :[place] (two) Medical times Branch daily. albuterol 2021- No [id number] 2{puff} Inhale 2 Univers 90 10-24-04 Puffs ity of mcg/actuati 00:00: 00:00 every 6 [place] on inhaler 00 :00 (six) Medical hours as Branch needed for Wheezing or Shortness of Breath. predniSONE 2021- No [id number] 40mg Take 2 Univers 20 mg 10-24 03-24 tablets by ity of tablet 00:00: 04:59 mouth [place] 00 :00 daily for Medical 30 days. Branch predniSONE 2021- No [id number] 40mg Take 2 Univers 20 mg 2- 03-11 tablets by ity of tablet 00:00: [...] 1{tbl} Take 1 U nivers en-codeine 2-24 10- tablet by ity of 300-30 mg 00:00: 05:59 mouth [place] tablet 00 :00 every 4 Medical (four) Branch hours as needed for Pain (scale 4-6) for up to 5 days. Indication s: acute pain acetaminoph 2021- No [id number] 1{tbl} Take 1 U nivers en-codeine 2-24 10- tablet by ity of 300-30 mg 00:00: 05:59 mouth [place] tablet 00 :00 every 4 Medical (four) Branch hours as needed for Pain (scale 4-6) for up to 5 days. Indication s: acute pain busPIRone 5 2021- No [id number] 5mg Take 1 Univers mg tablet 10-24- tablet by ity of 00:00: 00:00 mouth 2 [place] 00 :00 (two) Medical times Branch daily for 30 days. chlorhexidi 2021- No [id number] 15mL Swish and Univers ne 0.12 % 10-24- spit out ity o f mouthwash 00:00: 00:00 15 mL 2 [place] 00 :[place] (two) Medical times Branch daily for 7 days. albuterol 2021- No [id number] 2{puff} Inhale 2 Univers 90 -24 10- Puffs ity of mcg/actuati 00:00: 00:00 every 6 [place] on inhaler 00 :00 (six) Medical hours as Branch needed for Wheezing or Shortness of Breath. predniSONE 2021- No [id number] 40mg Take 2 Univers 20 mg 10-24- tablets by ity of tablet 00:00: 00:00 mouth [place] 00 :00 daily for Medical 30 days. Branch busPIRone 5 2021- No [id number] 5mg Take 1 Univers mg tablet 10-24- tablet by ity of 00:00: 00:00 mouth 2 [place] 00 :00 (two) Medical times Branch daily for 30 days. chlorhexidi 2021- No [id number] 15mL Swish and Univers ne 0.12 % 10-24- spit out ity o f mouthwash 00:00: 00:00 15 mL 2 [place] 00 :[place] (two) Medical times Branch daily for 7 days. phenoL Yes 1{spray 1 [place], Univ ers (SORE 2-20 } Oral, PRN, ity of THROAT 19:03: Starting [place] (PHENOL)) 59 on Sun Medical 1.4 % spray 10/23/21 at Br anch bottle 1 1303, [place] Until Discontinu ed, Routine, Sore throat phenoL 2021-0 Yes 1{spray 1 [place], Univ ers (SORE 2-20 } Oral, PRN, ity of THROAT 19:03: Starting [place] (PHENOL)) 59 on Sun Medical 1.4 % spray 10/23/21 at Br anch bottle 1 1303, [place] Until Discontinu ed, Routine, Sore throat zolpidem 202-0 2022- No 5mg 5 mg, Univers (AMBIEN) 2-20 02-20 Oral, ity of tablet 5 mg 04:00: 03:54 ONCE, 1 [place] 00 :00 dose, On Medical Sat Branch 10/22/21 at 2200, Routine methylpredn 2021-0 Yes 125mg 125 mg, Un guillermina isolone sod 2-19 Intravenou it y of succ 20:00: s, Q8H, [place] (SOLU-MEDRO 00 First dose Me dical L) (after Branch injection last 125 mg modificati on) on 10/22/21 at 1400, Until Discontinu ed, Routine methylpredn 2021-0 Yes 125mg 125 mg, Un guillermina isolone sod 2-19 Intravenou it y of succ 20:00: s, Q8H, [place] (SOLU-MEDRO 00 First dose Me dical L) (after Branch injection last 125 mg modificati on) on 10/22/21 at 1400, Until Discontinu ed, Routine hydroCHLORO 2021-0 Yes 12.5mg 12.5 mg, Univers thiazide 2-19 Oral, ity of (ESIDRIX) 15:30: DAILY, [place] capsule 00 First dose Medica l 12.5 mg on Sat Branch 10/22/21 at 0930, Until Discontinu ed, Routine amLODIPine 2021-0 Yes 10mg 10 mg, Unive rs (NORVASC) 2-19 Oral, ity of tablet 10 15:30: DAILY, [place] mg 00 First dose Medical on Sat Branch 10/22/21 at 0930, Until Discontinu ed, Routine hydroCHLORO 2021-0 Yes 12.5mg 12.5 mg, Univers thiazide 2-19 Oral, ity of (ESIDRIX) 15:30: DAILY, [place] capsule 00 First dose Medica l 12.5 mg on Sat Branch 10/22/21 at 0930, Until Discontinu ed, Routine amLODIPine 2021-0 Yes 10mg 10 mg, Unive rs (NORVASC) 2-19 Oral, ity of tablet 10 15:30: DAILY, [place] mg 00 First dose Medical on [facility] Branch 10/22/21 at 0930, Until Discontinu ed, Routine acetaminoph 2021-0 Yes 650mg 650 mg, Un guillermina en - Oral, ity of (TYLENOL) 09:54: Q6HPRN, [place] tablet 650 49 Starting Medic al mg on [facility] Branch 10/22/21 at 0354, Until Discontinu ed, Routine, Pain (scale 1-3) acetaminoph 2021-0 Yes 650mg 650 mg, Un guillermina en - Oral, ity of (TYLENOL) 09:54: Q6HPRN, [place] tablet 650 49 Starting Medic al mg on [facility] Branch 10/22/21 at 0354, Until Discontinu ed, Routine, Pain (scale 1-3) chlorhexidi 2021-0 Yes 15mL 15 mL, Univ ers ne - Oral ity of (PERIDEX) 02:00: ([place] 0.12 % 00 Spit Out), Medical mouthwash BID, First Bran ch 15 mL dose on Sun10/21/21 at 2000, Until Discontinu ed, Routine chlorhexidi 2021-0 Yes [...] 10-21 Starting ity of (XYLOCAINE) 19:00: on Fri [place] 4 % (40 00 10/21/21 at Medica l mg/mL) 1300, Branch topical Until solution Discontinu ed, Routine, Intra-op lidocaine 2022-0 Yes PRN, Univers 4% 10-21 Starting ity of (XYLOCAINE) 19:00: on Sun [place] 4 % (40 00 10/21/21 at Medica l mg/mL) 1300, Branch topical Until solution Discontinu ed, Routine, Intra-op methylpredn No 125mg 125 mg, U nivers isolone sod 10-21 Intravenou i ty of succ 19:00: 15:22 s, Q6H, [place] (SOLU-MEDRO 00 :22 First dose Me dical L) (after Branch injection last 125 mg modificati on) on Sun10/21/21 at 1300, Until Discontinu ed, Routine metoprolol No 5mg 5 mg, Slow Univers (LOPRESSOR) 10-21 IV Push, ity of injection 5 19:00: 19:00 ONCE, 1 [place] mg 00 :00 dose, On Medical Fri Branch 10/21/21 at 1300, Routine EPINEPHrine 2021-0 Yes PRN, Univer s 1:1,000 (1 -18 Starting ity o f mg/mL) 18:01: on Sun [place] (ADRENALIN) 10/21/21 at Hi dical injection 1201, Branch Until Discontinu ed, Routine, Intra-op EPINEPHrine 2021-0 Yes PRN, Univer s 1:1,000 (1 -18 Starting ity o f mg/mL) 18:01: on Sun [place] (ADRENALIN) 10/21/21 at Hi dical injection 1201, Branch Until Discontinu ed, Routine, Intra-op ondansetron 2021-0 Yes 4mg 4 mg, Slow Univers (ZOFRAN 2-18 IV Push, ity of (PF)) 17:19: PRN, 1 [place] injection 4 50 dose, Medical mg Starting Branch on Sun10/21/21 at 1119, Until Discontinu ed, Routine, Nausea and Vomiting (N/V), PACU ondansetron 2021-0 Yes 4mg 4 mg, Slow Univers (ZOFRAN 2-18 IV Push, ity of (PF)) 17:19: PRN, 1 [place] injection 4 50 dose, Medical mg Starting Branch on Sun10/21/21 at 1119, Until Discontinu ed, Routine, Nausea and Vomiting (N/V), PACU NaCl 0.9% 2021-0 Yes PRN, Univers (NS) 18 Starting ity of injection 17:01: on Sun [place] [id number] 10/21/21 at [facility] 1101, Branch Until Discontinu ed, Routine, Intra-op NaCl 0.9% 2021-0 Yes PRN, Univers (NS) 18 Starting ity of injection 17:01: on Sun [place] [address] 10/21/21 at [facility] 1101, Branch Until Discontinu ed, Routine, Intra-op morpHINE 2021-0 Yes 4mg 4 mg, Slow Uni vers injection 4 2-17 IV Push, ity of mg 23:22: Q4HPRN, [place] [address] Starting Medical on [facility] 10/20/21 at 1722, Until Discontinu ed, Routine, Pain (scale 7-10) morpHINE 2021-0 Yes 4mg 4 mg, Slow Uni vers injection 4 2-17 IV Push, ity of mg 23:22: Q4HPRN, [place] [address] Starting Medical on [facility] 10/20/21 at 1722, Until Discontinu ed, Routine, Pain (scale 7-10) methylpredn 2021-0 2021- No 125mg 125 mg, U nivers isolone sod 10-20 Intravenou i ty of succ 20:00: 17:53 s, Q8H, [place] (SOLU-MEDRO 00 :24 First dose Me dical L) (after Branch injection last 125 mg modificati on) on [facility] 10/20/21 at 1400, Until Discontinu ed, Routine furosemide 0 2021- No 40mg 40 mg, Univ ers (LASIX) 10-20 Slow IV ity of injection 18:00: 18:19 Push, [place] 40 mg 00 :00 ONCE, 1 Medical dose, On Branch [facility] 10/20/21 at 1200, Routine pantoprazol 2021-0 Yes 40mg 40 mg, Univ ers e -17 Oral, ity of (PROTONIX) 16:45: DAILY, [place] EC tablet 00 First dose Medi dayna 40 mg on [facility] 10/20/21 at 1045, Until Discontinu ed, Routine pantoprazol 0 Yes 40mg 40 mg, Univ ers e -17 Oral, ity of (PROTONIX) 16:45: DAILY, [place] EC tablet 00 First dose Medi dayna 40 mg on [place] 10/20/21 at 1045, Until Discontinu ed, Routine alum-mag 2021-0 Yes 30mL 30 mL, Univers hydroxide-s 2-17 Oral, ity of imeth 16:37: Q6HPRN, [place] (MAALOX 49 Starting Medical PLUS / on [facility] MAG-AL 10/20/21 at [facility]) 1037, 200-200-20 Until mg/5 mL Discontinu suspension ed, 30 mL Routine, Indigestio n alum-mag 2021-0 Yes 30mL 30 mL, Univers hydroxide-s 2-17 Oral, ity of imeth 16:37: Q6HPRN, [place] (MAALOX 49 Starting Medical PLUS / on [facility]-AL 10/20/21 at [facility]) 1037, 200-200-20 Until mg/5 mL Discontinu [...] 17 g 00 First dose Medical on [facility] 10/20/21 at 0900, Until Discontinu ed, Routine polyethylen 2021-0 Yes 17g 17 g, Unive rs e glycol 2-17 Oral, ity of 3350 powder 15:00: DAILY, [place] 17 g 00 First dose Medical on [facility] 10/20/21 at 0900, Until Discontinu ed, Routine docusate 0 Yes 100mg 100 mg, Unive rs (COLACE) 2-17 Oral, BID, ity o f capsule 100 02:00: First dose [place] mg 00 on Sun10/19/21 at Branch 2000, Until Discontinu ed, Routine docusate 2022-0 Yes 100mg 100 mg, Unive rs (COLACE) 2-17 Oral, BID, ity o f capsule 100 02:00: First dose [place] mg 00 on Sun Medical 10/19/21 at Branch 2000, Until Discontinu ed, Routine hydralAZINE Yes 10mg [...] 00 :00 dose, On Medi dayna mg [facility] Branch 10/19/21 at 0245, Routine pantoprazol No 40mg 40 mg, Uni vers e 10-18 Slow IV ity of (PROTONIX) 01:45: 16:42 Push, [place] injection 00 :17 Q24H, Medical 40 mg First dose Branch on Sun10/17/21 at 1945, Until Discontinu ed methylpredn 2021- No 125mg 125 mg, U nivers isolone sod 10-17 Intravenou i ty of succ 18:30: 18:10 s, Q6H, [place] (SOLU-MEDRO 00 :46 First dose Me dical [...] :52 First dose Medi dayna (SOLU-MEDRO on [facility] Branch L) 10/17/21 at injection 1200, 125 [...] Inhalation ity of (DUONEB) 14:00: , Q4H, [place] 0.5 mg-3 00 First dose Medic al mg(2.5 mg on Sun [place] base)/3 mL 10/17/21 at nebulizer 0800, solution 3 Until mL Discontinu ed, Routine ipratropium 2021-0 Yes 3mL 3 mL, Unive rs -albuteroL - Inhalation ity of (DUONEB) 14:00: , Q4H, [place] 0.5 mg-3 00 First dose Medic al mg(2.5 mg on Sun Branch base)/3 mL 10/17/21 at nebulizer 0800, solution 3 Until mL Discontinu ed, Routine lidocaine 2021- No 5mL 5 mL, Univer s 1% (PF) 10-17 Subcutaneo ity o f (XYLOCAINE) 13:45: 13:45 us, ONCE, [place] injection 5 00 :00 1 dose, On Me dical mL [facility] 10/17/21 at 0745, Routine NaCl 0.9% 2021-0 Yes 10mL 10 mL, Univer s (NS) 2-14 Slow IV ity of injection 13:27: [place], PRN, [place] 10 mL 33 Starting Medical on [facility] 10/17/21 at 0727, Until Discontinu ed, Routine, line maintenanc e NaCl 0.9% 2021-0 Yes 10mL 10 mL, Univer s (NS) 2-14 Slow IV ity of injection 13:27: Push, PRN, [place] 10 mL 33 Starting Medical on [facility] 10/17/21 at 0727, Until Discontinu ed, Routine, line maintenanc e haloperidol 2021- No 5mg 5 mg, Slow Univers lactate 10-1714 IV Push, ity of (HALDOL) 04:00: 03:03 ONCE, 1 [place] injection 5 00 :00 dose, On Medi dayna mg [facility] 10/16/21 at 2200, Routine busPIRone 0 Yes 5mg 5 mg, Univers (BUSPAR) 2-14 Oral, BID, ity o f tablet 5 mg 02:00: First dose on [facility] 10/16/21 at [place] 2000, Until Discontinu ed, Routine busPIRone 2021-0 Yes 5mg 5 mg, Univers (BUSPAR) 2-14 Oral, BID, ity o f tablet 5 mg 02:00: First dose on [facility] 10/16/21 at Branch 1999, Until Discontinu ed, Routine methylpredn 2021- No 60mg 60 mg, Uni vers isolone sod 10-16 Slow IV ity of succ 23:00: 17:25 Push, Q8H, [place] (SOLU-MEDRO 00 :30 First dose Me dical L) on [facility] injection 10/16/21 at 60 mg 1700, Until Discontinu ed, Routine HYDROcodone 2021- No 1{tbl} 1 tablet, Univers -acetaminop 10-1618 Oral, ity of hen (NORCO 19:49: 17:01 Q6HPRN, [place] as 5) 5-325 mg 46 :51 Starting Medi dayna tablet 1 on [place] Branch tablet 10/16/21 at 1349, Until Sun10/21/21 at 1101, Routine, Pain (scale 4-6) cefTRIAXone 2021- No 1000mg 1,000 mg, Univers (ROCEPHIN) 10-16 IV ity of 1,000 mg in 18:30: 18:56 Piggyback, [place] NaCl 0.9% 00 :00 Q24H ABX, Medic al (NS) 50 mL 5 doses, Branc h MINI-BAG First dose on Sun10/16/21 at 1230, Last dose on Nicole 10/20/21 [...] dose Bran ch (NS) 250 mL on [place] VIAL-MATE 10/16/21 at IV 1230, Last piggyback [...] maximum allowed dose, contact prescriber .
LORazepam No .5mg 0.5 mg, [facility] ers (ATIVAN) 10-15 Slow IV ity of injection 21:43: 16:47 Push, [place] 0.5 mg 49 :31 [id number], Medical Starting Branch on 10/15/21 at 1543, Until 10/17/21 at 1047, Routine, Anxiety iopamidol 2021- No [id number] 100mL 100 mL, Univers (ISOVUE 10-15 Intravenou ity o f 370-500 mL) 20:30: 19:21 s, ONCE, 1 [place] injection 00 :00 dose, On Medica l 100 mL Sat Branch 10/15/21 at 1430, Routine enoxaparin No 40mg 40 mg, [facility] ers (LOVENOX) 10-15 Subcutaneo ity of injection [...] IV 00 :17 IV Medical Piggyback Piggyback, [facility] RTU 1,500 Q12H ABX, mg First dose on 10/15/21 at 0400, Until Discontinu ed, Administer over 90 Minutes
Reason for Anti-Infec tive: Documented Infection< br>Documen britney Infection Site: Blood
D uration of Therapy: 7 days ceFEPIme 2021- No 1000mg 1,000 mg, U nivers (MAXIPIME) 10-15 IV ity of 1,000 mg in 09:15: 16:[facility] [place] NaCl 0.9% 00 :17 Q12H ABX, Medic al (NS) 50 mL First dose Bra nch MINI-BAG on 10/15/21 at 0315, Until Discontinu ed, Administer over 30 Minutes, 50 mL
Reas on for Anti-Infec tive: Documented Infection< br>Documen britney Infection Site: Blood
D uration of Therapy: 7 days ipratropium 2-0 Yes 3mL 3 mL, Unive [...] mg 0-14 tablet 00:00: 00 Flagyl 500 2020-09 No 1mg mg tablet 0-11 00:00: 00 Flagyl 500 1 No 1mg mg tablet 0-11 00:00: 00 medroxyprog 0 No 1mg/mL esterone 6-24 150 mg/mL 00:00: intramuscul 00 ar suspension lurasidone 2019-0 Yes Take by [facility] HCl (LATUDA 7-17 mouth. ity of ORAL) 10:16: [place] 57 Medical Branch [facility] Yes SMILEY EXT AA Univers ne valerate 5-24 BID ity of 0.1 % 00:00: [place] ointment 00 Medical Branch [facility] Yes TK 1 C PO U nivers -hydrochlor 5-24 QAM ity of othiazide 00:00: [place] 37.5-25 mg 00 Medical per capsule Branch [facility] Yes SMILEY EXT AA Univers ne valerate 5-24 BID ity of 0.1 % 00:00: [place] ointment 00 Medical Branch [facility] Yes TK 1 C PO U nivers -hydrochlor 5-24 QAM ity of othiazide 00:00: [place] 37.5-25 mg 00 Medical per capsule Branch [facility] Yes SMILEY EXT AA Univers ne valerate 5-24 BID ity of 0.1 % 00:00: [place] ointment 00 Medical Branch [facility] Yes TK 1 C PO U nivers -hydrochlor 5-24 QAM ity of othiazide 00:00: [place] 37.5-25 mg 00 Medical per capsule Branch [facility] Yes SMILEY EXT AA Univers ne valerate 5-24 BID ity of 0.1 % 00:00: [place] ointment 00 Medical Branch [facility] Yes SMILEY EXT AA Univers ne valerate 5-24 BID ity of 0.1 % 00:00: [place] ointment 00 Medical Branch [facility] Yes TK 1 C PO U nivers -hydrochlor 5-24 QAM ity of othiazide 00:00: [place] 37.5-25 mg 00 Medical per capsule Branch [facility] Yes TK 1 C PO U nivers -hydrochlor 5-24 QAM ity of othiazide 00:00: [place] 37.5-25 mg 00 Medical [facility] SMILEY [facility] AA Univers ne valerate 5-24 BID ity of 0.1 % 00:00: [place] ointment 00 Medical Branch [facility] Yes TK 1 C PO U nivers -hydrochlor 5-24 QAM ity of othiazide 00:00: [place] 37.5-25 mg 00 Medical per capsule Branch betamethaso Yes SMILEY EXT AA Univers ne valerate 5-24 BID ity of 0.1 % 00:00: [place] ointment 00 Medical Branch [facility] Yes TK 1 C PO U nivers -hydrochlor 5-24 QAM ity of othiazide 00:00: [place] 37.5-25 mg 00 Medical per capsule Branch betamethaso Yes SMILEY EXT AA Univers ne valerate 5-24 BID ity of 0.1 % 00:00: [place] ointment 00 Medical Branch [facility] Yes TK 1 C PO U nivers -hydrochlor 5-24 QAM ity of othiazide 00:00: 37.5-25 mg 00 Medical per capsule Branch betamethaso 2021- No SMILEY EXT AA Univers ne valerate 5-24 04-04 BID ity of 0.1 % 00:00: 00:00 [place] ointment 00 :00 Medical Branch [facility] 2021- No TK 1 C PO Univers -hydrochlor 5-24 04-04 QAM ity of othiazide 00:00: 00:00 [place] 37.5-25 mg 00 :00 Medical per capsule Branch DEXILANT 60 Yes TK 1 C PO U nivers mg capsule 9-28 QD ity of 00:00: [place] 00 Medical Branch DEXILANT 60 Yes TK 1 C PO U nivers mg capsule 9-28 QD ity of 00:00: [place] 00 Medical Branch DEXILANT 60 Yes TK 1 C PO U nivers mg capsule 9-28 QD ity of 00:00: [place] 00 Medical Branch DEXILANT 60 Yes TK 1 C PO U nivers mg capsule 9-28 QD ity of 00:00: [place] 00 Medical Branch DEXILANT 60 Yes TK 1 C PO U nivers mg capsule 9-28 QD ity of 00:00: [place] 00 Medical Branch DEXILANT 60 Yes TK [...] H PRN ity of tablet 00:00: FOR [facility] proMETHazin Yes TK 1 T PO U nivers e 25 mg 3-29 Q 12 H PRN ity of tablet 00:00: FOR [facility] proMETHazin Yes TK 1 T PO U nivers e 25 mg 3-29 Q 12 H PRN ity of tablet 00:00: FOR 30 [facility] proMETHazin Yes TK 1 T PO U nivers e 25 mg 3-29 Q 12 H PRN ity of tablet 00:00: FOR [facility] proMETHazin Yes TK 1 T PO U nivers e 25 mg 3-29 Q 12 H PRN ity of tablet 00:00: FOR [facility] proMETHazin Yes TK 1 T PO U nivers e 25 mg 3-29 Q 12 H PRN ity of tablet 00:00: FOR 30 [facility] proMETHazin Yes TK 1 T PO U nivers e 25 mg 3-29 Q 12 H PRN ity of tablet 00:00: FOR 30 [facility] proMETHazin 2021- No TK 1 T PO Univers e 25 mg 3-29 -04 Q 12 H PRN ity o f tablet 00:00: 00:00 FOR 30 00 : Medical Branch amLODIPine Yes TK 1 T [...] tablet 3-21 Q NIGHTLY ity of 00:00: [place] [facility] amLODIPine Yes TK 1 T PO Un guillermina 5 mg tablet 3-21 Q NIGHTLY ity of 00:00: [place] [facility] amLODIPine Yes TK 1 T PO Un guillermina 5 mg tablet 3-21 Q NIGHTLY ity of 00:00: [facility] amLODIPine Yes TK 1 T PO Un guillermina 5 mg tablet 3-21 Q NIGHTLY ity of 00:00: [place] [facility] amLODIPine 2021- No TK 1 [...] tablet 00 :00 Medical Branch Zoloft 100 No 15mg mg tablet 4-16 00:00: 00 trazodone No 51mg 100 mg 4-16 tablet 00:00: 00 betamethaso 2012-0 Yes [id number] Apply to [facility] 2-13 area(s) ity of dipropionat 00:00: two (2) José Miguel as e 00 times Medical (DIPROLENE) daily. Branch 0.05 % cream betamethaso 2013- Yes [id number] Apply to [facility] 2-13 area(s) ity of dipropionat 00:00: two (2) José Miguel as e 00 times Medical (DIPROLENE) daily. Branch 0.05 % cream betamethaso 2013- Yes [id number] Apply to [facility] 2-13 area(s) ity of dipropionat 00:00: two (2) José Miguel as e 00 times Medical (DIPROLENE) daily. Branch 0.05 % cream betamethaso 2012- Yes [id number] Apply to [facility] 2-13 area(s) ity of dipropionat 00:00: two (2) José Miguel as e 00 times Medical (DIPROLENE) daily. Branch 0.05 % cream betamethaso 2012- Yes [id number] Apply to [facility] 2-13 area(s) ity of dipropionat 00:00: two (2) José Miguel as e 00 times Medical (DIPROLENE) daily. Branch 0.05 % cream betamethaso 2012- Yes [id number] Apply to [facility] 2-13 area(s) ity of dipropionat 00:00: two (2) José Miguel as e 00 times Medical (DIPROLENE) daily. Branch 0.05 % cream betamethaso 2012- Yes [id number] Apply to [facility] 2-13 area(s) ity of dipropionat 00:00: two (2) José Miguel as e 00 times Medical (DIPROLENE) daily. Branch 0.05 % cream betamethaso 2012- Yes [id number] Apply to [facility] 2-13 area(s) ity of dipropionat 00:00: two (2) José Miguel as e 00 times Medical (DIPROLENE) daily. Branch 0.05 % cream betamethaso 2013-2021- No [id number] Apply to [facility] 2-13 04-04 area(s) ity of dipropionat 00:00: 00:00 [place] :00 times Medical (DIPROLENE) daily. Branch 0.05 % cream Immunizations Ordered Filled Immunization Date Status Comments [facility] e Immunization Name Name SARS-COV-2 COVID-19 2021-03-03 [...] COVID-19 2021-03-03 Completed Unive rsity of MODERNA 12+ YRS 00:00:00 [place] Med ical VACCINE Branch SARS-COV-2 COVID-19 2021-03-03 Completed Unive rsity of MODERNA 12+ YRS 00:00:00 [place] Med ical VACCINE Branch SARS-COV-2 COVID-19 2021-03-03 Completed Unive rsity [...] Unive rsity of MODERNA VACCINE 00:00:00 [place] [facility] ical Branch SARS-COV-2 COVID-19 2021-02-01 Completed Unive rsity of MODERNA VACCINE 00:00:00 [place] Med ical Branch SARS-COV-2 COVID-19 2021-02-01 Completed Unive rsity of MODERNA VACCINE 00:00:00 [place] [facility] ical Branch SARS-COV-2 COVID-19 2021-02-01 Completed Unive rsity of MODERNA VACCINE 00:00:00 [place] Med ical Branch SARS-COV-2 COVID-19 2021-02-01 Completed Unive rsity of MODERNA 12+ YRS 00:00:00 [place] Med ical VACCINE Branch SARS-COV-2 COVID-19 2021-02-01 Completed Unive rsity of MODERNA 12+ YRS 00:00:00 [place] Med ical VACCINE Branch SARS-COV-2 COVID-19 2021-02-01 Completed Unive rsity of MODERNA VACCINE 00:00:00 [place] [facility] ical Branch SARS-COV-2 COVID-19 2021-02-01 Completed Unive rsity of MODERNA VACCINE 00:00:00 [facility] SARS-COV-2 COVID-19 2021-02-01 Completed Unive rsity of MODERNA VACCINE 00:00:00 [facility] SARS-COV-2 COVID-19 2021-02-01 Completed Unive rsity of MODERNA VACCINE 00:00:00 [facility] SARS-COV-2 COVID-19 2021-02-01 Completed Unive rsity of MODERNA VACCINE 00:00:00 [facility] SARS-COV-2 COVID-19 2021-02-01 Completed Unive rsity of MODERNA VACCINE 00:00:00 [facility] SARS-COV-2 COVID-19 2021-02-01 Completed Unive rsity of MODERNA VACCINE 00:00:00 [facility] SARS-COV-2 COVID-19 2021-02-01 Completed Unive rsity of MODERNA VACCINE 00:00:00 [facility] SARS-COV-2 COVID-19 2021-02-01 Completed Unive rsity of MODERNA VACCINE 00:00:00 [facility] SARS-COV-2 COVID-19 2021-02-01 Completed Unive rsity of MODERNA VACCINE 00:00:00 [facility] SARS-COV-2 COVID-19 2021-02-01 Completed Unive rsity of MODERNA VACCINE 00:00:00 [facility] SARS-COV-2 COVID-19 2021-02-01 Completed Unive rsity of MODERNA VACCINE 00:00:00 [facility] Influenza, 2020-09-02 Completed seasonal, inj 00:00:00 Influenza Virus 2007-07-02 Completed Universit y of Vaccine 00:00:00 [facility] [place] Influenza Virus 2007-07-02 Completed Universit y of Vaccine 00:00:00 [facility] [place] Influenza Virus 2007-07-02 Completed Universit y of Vaccine 00:00:00 [facility] [place] Influenza Virus 2007-07-02 Completed Universit y of Vaccine 00:00:00 [facility] [place] Influenza Virus 2007-07-02 Completed Universit y of Vaccine 00:00:00 [facility] [place] Influenza Virus 2007-07-02 Completed Universit y of Vaccine 00:00:00 [facility] [place] Influenza Virus 2007-07-02 Completed Universit y of Vaccine 00:00:00 [facility] [place] Influenza Virus 2007-07-02 Completed Universit y of Vaccine 00:00:00 [facility] [place] Influenza Virus 2007-07-02 Completed Universit y of Vaccine 00:00:00 [facility] [place] Influenza Virus 2007-07-02 Completed Universit y of Vaccine 00:00:00 [facility] [place] Influenza Virus 2007-07-02 Completed Universit y of Vaccine 00:00:00 [facility] [place] Influenza Virus 2007-07-02 Completed Universit y of Vaccine 00:00:00 [facility] [place] Influenza Virus 2007-07-02 Completed Universit y of Vaccine 00:00:00 [facility] [place] Influenza Virus 2007-07-02 Completed Universit y of Vaccine 00:00:00 [facility] [place] Influenza Virus 2007-07-02 Completed Universit y of Vaccine 00:00:00 [facility] [place] Influenza Virus 2007-07-02 Completed Universit y of Vaccine 00:00:00 [facility] [place] Influenza Virus 2007-07-02 Completed Universit y of Vaccine 00:00:00 [facility] [place] Influenza Virus 2007-07-02 Completed Universit y of Vaccine 00:00:00 [facility] [place] Influenza Virus 2007-07-02 Completed Universit y of Vaccine 00:00:00 [facility] [place] Influenza Virus 2007-07-02 Completed Universit y of Vaccine 00:00:00 [facility] [place] Influenza Virus 2007-07-02 Completed Universit y of Vaccine 00:00:00 [facility] [place] Vital Signs Vital Name Observation Time Observation Value Comments Source Height 2022-06-12 15:55:00 160.02 CM Weight 2022-06-12 15:55:00 81.64 KG Systolic blood 2022-06-01 03:00:00 167 mm[Hg] Univer sity of pressure [facility] [place] Diastolic blood 2022-06-01 03:00:00 102 mm[Hg] Unive rsity of pressure [facility] [place] Heart rate 2022-06-01 03:00:00 94 /min Universi ty of [facility] [place] Respiratory rate 2022-06-01 03:00:00 20 /min Univ ersity of [facility] [place] Oxygen saturation in 2022-06-01 03:00:00 98 /min [facility] Arterial blood by [facility] Pulse oximetry Branch Body height 2022-06-01 01:17:00 160 cm Universi ty of [place] [facility] Body weight 2022-06-01 01:17:00 89.812 kg Universi ty of [place] [facility] BMI 2022-06-01 01:17:00 35.07 kg/m2 Universi ty [facility] [place] [facility] Height 2022-04-05 15:26:00 160.02 CM Weight 2022-04-05 15:26:00 90.26 KG Systolic blood 2022-02-26 13:59:00 136 mm[Hg] Univer sity of pressure [place] [facility] Diastolic blood 2022-02-26 13:59:00 101 mm[Hg] Unive rsity of pressure [place] [facility] Heart rate 2022-02-26 13:59:00 79 /min Universi ty of [place] [facility] Body temperature 2022-02-26 13:59:00 36.78 Carleen Univ ersity of [place] [facility] Respiratory rate 2022-02-26 13:59:00 20 /min Univ ersity of [place] [facility] Oxygen saturation in 2022-02-26 13:59:00 100 /min University of Arterial blood by [place] [employer] Pulse oximetry Branch Body height 2022-02-26 04:37:00 160 cm Universi ty of [place] [facility] Body weight 2022-02-26 04:37:00 92.08 kg Universi ty of [place] [facility] BMI 2022-02-26 04:37:00 35.96 kg/m2 Universi ty [facility] [place] [facility] Systolic blood 2022-02-23 06:00:00 115 mm[Hg] Univer sity of pressure [place] [facility] Diastolic blood 2022-02-23 06:00:00 83 mm[Hg] Unive rsity of pressure [place] [facility] Heart rate 2022-02-23 06:00:00 62 /min Universi ty of [place] [facility] Respiratory rate 2022-02-23 06:00:00 18 /min Univ ersity of [place] [facility] Oxygen saturation in 2022-02-23 06:00:00 97 /min University of Arterial blood by [place] [employer] dayna Pulse oximetry Branch Body temperature 2022-02-23 02:45:00 37.83 Carleen Univ ersity of [place] [facility] Body height 2022-02-23 02:45:00 160 cm Universi ty [facility] [place] [facility] Body weight 2022-02-23 02:45:00 92.08 kg Universi ty [facility] [place] [facility] BMI 2022-02-23 02:45:00 35.96 kg/m2 Universi ty [facility] [place] [facility] Systolic blood 2022-01-29 21:54:12 118 mm[Hg] Univer sity of pressure [place] [facility] Diastolic blood 2022-01-29 21:54:12 74 mm[Hg] Unive rsity of pressure [place] [facility] Heart rate 2022-01-29 21:54:12 98 /min Universi ty of [place] [facility] Respiratory rate 2022-01-29 21:54:12 24 /min Univ ersity of [place] [facility] Oxygen saturation in 2022-01-29 21:54:12 98 /min University of Arterial blood by [place] [employer] dayna Pulse oximetry Branch Body temperature 2022-01-29 18:53:00 37 Carleen [facility] ersity of [place] [facility] Body height 2022-01-29 18:53:00 160 cm Universi ty of [place] [facility] Body weight 2022-01-29 18:53:00 90.719 kg Universi ty [facility] [place] [facility] BMI 2022-01-29 18:53:00 35.43 kg/m2 Universi ty [facility] [place] [facility] Systolic blood 2022-01-29 15:01:00 138 mm[Hg] Univer sity of pressure [place] [facility] Diastolic blood 2022-01-29 15:01:00 82 mm[Hg] Unive rsity of pressure [place] [facility] Heart rate 2022-01-29 15:01:00 88 /min Universi ty of [place] [facility] Respiratory rate 2022-01-29 15:01:00 15 /min Univ ersity of [place] [facility] Oxygen saturation in 2022-01-29 15:01:00 96 /min University of Arterial blood by [place] [employer] dayna Pulse oximetry Branch Body temperature 2022-01-29 12:58:00 36.61 Carleen Univ ersity of [place] [facility] Body weight 2022-01-29 12:58:00 81.647 kg Universi ty [facility] [place] [facility] BMI 2022-01-29 12:58:00 31.89 kg/m2 [facility]i ty [facility] [place] [facility] Height 2022-01-05 08:28:00 160.02 CM Weight 2022-01-05 08:28:00 81.64 KG Systolic blood 2022-01-03 04:43:12 152 mm[Hg] Univer sity of pressure [place] [facility] Diastolic blood 2022-01-03 04:43:12 112 mm[Hg] Unive rsity of pressure [place] [facility] Body temperature 2022-01-03 04:43:12 37.28 Carleen Univ ersity of [place] [facility] Respiratory rate 2022-01-03 04:43:12 17 /min Univ ersity of [place] [facility] Heart rate 2022-01-03 04:42:33 88 /min Universi ty [facility] [place] [facility] Oxygen saturation in 2022-01-03 04:42:33 97 /min University of Arterial blood by [facility] dayna Pulse oximetry Branch Body height 2022-01-03 02:36:00 160 cm Universi ty [facility] [place] [facility] Body weight 2022-01-03 02:36:00 81.647 kg Universi ty [facility] [place] [facility] BMI 2022-01-03 02:36:00 31.89 kg/m2 [facility] [place] [facility] Body temperature 2021-12-07 13:30:00 37.17 Carleen Univ ersity of [place] [facility] Respiratory rate 2021-12-07 13:30:00 23 /min Univ ersity of [place] [facility] Oxygen saturation in 2021-12-07 13:14:00 97 /min University of Arterial blood by [facility] Pulse oximetry Branch Systolic blood 2021-12-07 09:00:00 157 mm[Hg] Univer sity of pressure [place] [facility] Diastolic blood 2021-12-07 09:00:00 99 mm[Hg] Unive rsity of pressure [place] [facility] Heart rate 2021-12-07 09:00:00 82 /min [facility]i ty [facility] [place] [facility] Body weight 2021-12-07 08:10:00 95.709 kg [facility]i ty [facility] [place] [facility] BMI 2021-12-07 08:10:00 37.38 kg/m2 [facility] [place] [facility] Body height 2021-12-06 06:30:00 160 cm [facility]i ty [facility] [place] [facility] Systolic blood 2021-12-05 09:10:00 126 mm[Hg] Univer sity of pressure [place] [facility] Diastolic blood 2021-12-05 09:10:00 71 mm[Hg] Unive rsity of pressure [place] [facility] Heart rate 2021-12-05 09:10:00 85 /min [facility]i ty [facility] [place] [facility] Body temperature 2021-12-05 09:10:00 36.83 Carleen Univ ersity of [place] [facility] Respiratory rate 2021-12-05 09:10:00 18 /min Univ ersity of [place] [facility] Oxygen saturation in 2021-12-05 09:10:00 96 /min University of Arterial blood by [employer] dayna Pulse oximetry Branch Body height 2021-12-03 23:16:00 160 cm [facility]i ty [facility] [place] [facility] Body weight 2021-12-03 23:16:00 81.647 kg [facility]i ty [facility] [place] [facility] BMI 2021-12-03 23:16:00 31.89 kg/m2 [facility] [place] [facility] Systolic blood 2021-11-11 18:12:00 152 mm[Hg] Univer sity of pressure [place] [facility] Diastolic blood 2021-11-11 18:12:00 93 mm[Hg] Unive rsity of pressure [place] [facility] Heart rate 2021-11-11 18:12:00 108 /min Universi ty [facility] [place] [facility] Body temperature 2021-11-11 18:12:00 37.06 Carleen Univ ersity of [place] [facility] Respiratory rate 2021-11-11 18:12:00 20 /min Univ ersity of [place] [facility] Oxygen saturation in 2021-11-11 18:12:00 95 /min University of Arterial blood by [place] [employer] dayna Pulse oximetry Branch Body height 2021-11-10 17:22:00 160 cm [facility]i ty [facility] [place] [facility] Body weight 2021-11-10 17:22:00 91 kg [facility]i ty [facility] [place] [facility] BMI 2021-11-10 17:22:00 35.54 kg/m2 [facility] [place] [facility] Systolic blood 2021-10-24 17:05:00 143 mm[Hg] Univer sity of pressure [place] [facility] Diastolic blood 2021-10-24 17:05:00 90 mm[Hg] Unive rsity of pressure [place] [facility] Heart rate 2021-10-24 17:05:00 103 /min [facility]i ty [facility] [place] [facility] Body temperature 2021-10-24 17:05:00 36.22 Carleen Univ ersity of [place] [facility] Respiratory rate 2021-10-24 17:05:00 18 /min Univ ersity of [facility] [place] Oxygen saturation in 2021-10-24 17:05:00 95 /min University of Arterial blood by [place] [employer] dayna Pulse oximetry Branch Body weight 2021-10-22 10:08:00 71.215 kg bed scale Universi ty of [place] [facility] [place] BMI 2021-10-22 10:08:00 28.72 kg/m2 Universi ty [facility] Body height 2021-10-17 14:00:00 157.5 cm Universi ty of [facility] [place] Systolic blood 2021-10-21 15:36:00 129 mm[Hg] Univer sity of pressure [facility] [place] Diastolic blood 2021-10-21 15:36:00 82 mm[Hg] Unive rsity of pressure [facility] [place] Heart rate 2021-10-21 15:36:00 100 /min Universi ty [facility] Respiratory rate 2021-10-21 15:36:00 20 /min [facility] [place] Oxygen saturation in 2021-10-21 15:36:00 100 /min University of Arterial blood by [facility] Pulse oximetry Branch Body temperature 2021-10-21 13:07:00 36.83 Carleen [facility] ersity of [facility] [place] Body height 2021-10-17 14:00:00 157.5 cm Universi ty [facility] Body weight 2021-10-17 14:00:00 99.791 kg Universi [facility] BMI 2021-10-17 14:00:00 28.72 kg/m2 [facility] BP Systolic 2022-04-15 13:48:00 155 mm[Hg] BP [...] Time Performing Clinician Source Performed AUTHORIZATION FOR RELEASE 2022-06-08 05:01:00 Doctor Unananci, [facility] [place] [facility] XR CHEST 1 VW 2022-06-01 02:07:14 Gabriel Garcia [place] [facility] XR KNEE <3 VW RIGHT 2022-06-01 02:07:14 Gabriel Garcia [facility] XR SHOULDER 2+ VW RIGHT 2022-06-01 02:07:14 Gabriel Garcia [facility] CT CERVICAL SPINE WO 2022-06-01 02:05:05 Gabriel Garcia [facility] CONTRAST [facility] CT HEAD WO CONTRAST 2022-06-01 02:05:05 Gabriel Garcia [facility] CONSENT/REFUSAL FOR 2022-06-01 01:15:31 Doctor Unananci, [facility] DIAGNOSIS AND TREATMENT [place] [facility] INTRO ANES AGT PERIPH 2022-04-06 00:00:00 [facility]V\\T\\PLEXI PC Center INTRO AIF PERIPH NRV 2022-04-06 00:00[facility] ASSIGNMENT OF BENEFITS 2022-03-14 20:14:00 Doctor Casandra, [facility] Name Medical Branch CT THORAX WO CONTRAST 2022-02-26 13:20:05 Anaya Guallpa [facility] BASIC METABOLIC PANEL 2022-02-26 09:29:00 Anaya Guallpa [facility] (NA, K, CL, CO2, GLUCOSE, Medica l Branch BUN, CREATININE, CA) CBC WITH DIFF 2022-02-26 09:29:00 Anaya Guallpa [facility] EKG-12 LEAD 2022-02-26 06:20:06 Sobeida Samson [facility] LIPASE 2022-02-26 03:28:00 Sobeida Samson [facility] TROPONIN I 2022-02-26 03:28:00 Sobeida Samson [facility] COMP. METABOLIC PANEL 2022-02-26 03:28:00 Sobeida Samson [facility] ([id number]) Medical Branch CBC WITH DIFF 2022-02-26 03:28:00 Sobeida Samson [facility] N-TERMINAL PRO-BNP 2022-02-26 03:28:00 [facility] XR CHEST 1 VW 2022-02-26 01:52:00 Sobeida Samson [facility] COVID-19 (ID NOW RAPID 2022-02-26 01:03:00 Sobeida Samson [facility] CT HEAD WO CONTRAST 2022-02-25 23:59:38 Sobeida Samson [facility] CONSENT/REFUSAL FOR 2022-02-25 22:55:28 Doctor Unassigned, [facility] DIAGNOSIS AND TREATMENT [place] [facility] EKG-12 LEAD 2022-02-23 06:15:35 Seth [facility] TROPONIN I 2022-02-23 05:20:00 [facility]W 2022-02-23 03:47:00 [facility] 2022-02-23 03:26[facility]00 [facility]22-02-23 03:12:00 Bro Pandya [facility] COMP. METABOLIC PANEL 2022-02-23 03:12:00 Bro Pandya [facility] ([id number]) [facility] CBC WITH DIFF 2022-02-23 03:12:00 Bro Pandya [facility] RAPID INFLUENZA A/B 2022-02-23 03:12:[address] [facility] N-TERMINAL PRO-BNP 2022-02-23 03:12:00 Bro Pandya [facility] COVID-19 (ID NOW RAPID 2022-02-23 03:12:00 Bro Pandya [facility] TESTING) Medical Branch CONSENT/REFUSAL FOR 2022-02-23 02:38:26 Doctor Casandra [facility] DIAGNOSIS AND TREATMENT [place] [facility] XR LUMBAR SPINE 2 VW 2022-01-29 20:25:[address] [facility] CONSENT/REFUSAL FOR 2022-01-29 18:42:46 Doctor Casandra [facility] DIAGNOSIS AND TREATMENT [place] [facility] XR CHEST 1 VW 2022-01-29 13:43:00 Mai Del Rosario [facility] TROPONIN I 2022-01-29 13:34:00 Mai Del Rosario [facility] COMP. METABOLIC PANEL 2022-01-29 13:34:00 Mai Del Rosario [facility] ([id number] CBC WITH DIFF 2022-01-29 13:34:00 Mai Del Rosario [facility] N-TERMINAL PRO-BNP 2022-01-29 13:34:00 [facility] AC PANEL 21 + LACTIC ACID 2022-01-29 13:34:00 Mai Del Rosario [facility] CONSENT/REFUSAL FOR 2022-01-29 12:47:51 Doctor Guajardo [facility] DIAGNOSIS AND TREATMENT [facility] INTRO ANES AGT PERIPH 2022-01-05 00:00:00 Shi hdez Medical NRV\\T\\PLEXI PC Center INTRO AIF PERIPH NRV 2022-01-05 00:00:00 Victor Manuel Mcfadden PLEXI PERQ Center XR CHEST 1 VW 2022-01-03 04:29:34 Jacklyn Guillen [facility] CONSENT/REFUSAL FOR 2022-01-03 02:30:38 Doctor Casandra [facility] DIAGNOSIS AND TREATMENT [place] [facility] MAGNESIUM 2021-12-07 09:01:00 Clifton Adair o [facility] COMP. METABOLIC PANEL 2021-12-07 09:01:00 Gely Cordova [facility] ([id number]) [facility] CBC WITH DIFF 2021-12-07 09:01:00 [facility] N-TERMINAL PRO-BNP 2021-12-07 09:01:00 [facility] URINALYSIS 2021-12-06 16:46:00 [facility] URINE CULTURE 2021-12-06 16:46:00 [facility] PHOSPHORUS 2021-12-06 10:11:00 [facility] MAGNESIUM 2021-12-06 10:11:00 [facility] VITAMIN B12, LEVEL 2021-12-06 10:11:00 [facility] C-REACTIVE PROTEIN 2021-12-06 10:11:00 [facility] TROPONIN I 2021-12-06 10:11:00 [facility] FREE T4 2021-12-06 10:11:00 Mary [facility] COMP. METABOLIC PANEL 2021-12-06 10:11:00 Mary [facility] ([id number]) [facility] SEDIMENTATION RATE 2021-12-06 10:11:00 [facility] CBC WITH DIFF 2021-12-06 10:11:00 [facility] N-TERMINAL PRO-BNP 2021-12-06 10:11:00 Mary ady [facility] VITAMIN D, 25-OH 2021-12-06 10:11:00 Mary [facility] FREE T3 2021-12-06 10:11:00 [facility] PROCALCITONIN 2021-12-06 10:11:00 [facility] AC VBG + LACTIC ACID 2021-12-06 10:10:00 Mary [facility] COVID-19 (ID NOW RAPID 2021-12-06 00:09:00 Christos Tovar [facility] TESTING) Medical Branch LAB ONLY COVID 2021-12-06 00:09:00 Christos Tovar [facility] INTERPRETATION [facility] URIC ACID 2021-12-06 00:07:00 Gely Cordova [facility] FERRITIN SERUM 2021-12-06 00:07:00 Mary ady [facility] TROPONIN I 2021-12-06 00:07:00 Christos Tovar [facility] THYROID STIMULATING 2021-12-06 00:07:00 Gely Cordova [facility] HORMONE Medical Branch COMP. METABOLIC PANEL 2021-12-06 00:07:00 Christos Tovar [facility] ([id number]) Medical Branch LIPID PANEL ([id number])(TOTAL 2021-12-06 00:07:00 Gely Cordova [facility] CHOLESTEROL, Medical Branch TRIGLYCERIDES, HDL) IRON PANEL 2021-12-06 00:07:00 Gely Cordova [facility] DIFF CONSULT 2021-12-06 00:07:[address] [facility] CBC WITH DIFF 2021-12-06 00:07:00 Christos Tovar [facility] GLYCOSYLATED HEMOGLOBIN 2021-12-06 00:07:00 Gely Cordova [facility] (A1C) [facility] PROTHROMBIN TIME / INR 2021-12-06 00:07:00 Christos Tovar [facility] ACTIVATED PARTIAL 2021-12-06 00:07:00 Christos Tovar [facility] THRMPLAS ANTONINO [facility] N-TERMINAL PRO-BNP 2021-12-06 00:07:00 Christos Tovar [facility] [place] HB ECG ROUTINE & RHYTHM 2021-12-06 00:05:16 Christos Tovar [facility] STRIP Medical Branch XR CHEST 1 VW 2021-12-05 23:50:38 Christos Tovar [facility] ASSIGNMENT OF BENEFITS 2021-12-05 23:47:08 Doctor Unassigned, [facility] Name Medical Branch NOTICE OF PRIVACY 2021-12-05 22:03:59 Doctor Unassigned, [facility] PRACTICES [place] [facility] CONSENT/REFUSAL FOR 2021-12-05 22:03:42 Doctor Unassigned, [facility] DIAGNOSIS AND TREATMENT [place] [facility] CT ANGIOGRAM CHEST 2021-12-04 20:47:15 [facility] LACTIC ACID WHOLE BLOOD 2021-12-04 15:19:00 Michel [facility] BLOOD CULTURE SCREEN 2021-12-04 10:21:[address] [facility] LACTIC ACID WHOLE BLOOD 2021-12-04 09:08:00 Donal You [facility] BASIC METABOLIC PANEL 2021-12-04 09:07:00 Michel [facility] (NA, K, CL, CO2, GLUCOSE, Medica l Branch BUN, CREATININE, CA) CBC WITH DIFF 2021-12-04 09:07:00 Michel [facility] EKG-12 LEAD 2021-12-03 21:29:00 Maury Brush [facility] AC ABG + LACTIC ACID 2021-12-03 21:13:00 Maury Brush [facility] AMYLASE 2021-12-03 21:12:00 Maury Brush [facility] LIPASE 2021-12-03 21:12:00 Maury Brush [facility] TROPONIN I 2021-12-03 21:12:00 Maury Brush [facility] COMP. METABOLIC PANEL 2021-12-03 21:12:00 Maury Brush [facility] ([id number]) [facility] CBC WITH DIFF 2021-12-03 21:12:00 Muary Brush [facility] N-TERMINAL PRO-BNP 2021-12-03 21:12:00 [facility] PROCALCITONIN 2021-12-03 21:12:00 Abu Anaya Olivarez [facility] XR CHEST 1 VW 2021-12-03 20:52:01 Maury Brush [facility] URINALYSIS 2021-12-03 20:34:00 Maury Brush [facility] COVID-19 (ID NOW RAPID 2021-12-03 20:34:00 Maury Brush Un [facility] TESTING) Medical Branch AUTHORIZATION FOR RELEASE 2021-11-23 05:01:00 Doctor Unassigned, [facility] [place] [facility] EKG-12 LEAD 2021-11-11 05:25:58 Sobeida Samson [facility] BASIC METABOLIC PANEL 2021-11-10 09:16:00 [facility] (NA, K, CL, CO2, GLUCOSE, Medica l Branch BUN, CREATININE, CA) CBC WITH DIFF 2021-11-10 09:16:00 [facility] LACTIC ACID WHOLE BLOOD 2021-11-10 09:16:00 Sobeida Samson U [facility] CT CHEST PULMONARY 2021-11-10 04:49:21 Sobeida Samson [facility] ANGIOGRAM Medical Branch BLOOD CULTURE SCREEN 2021-11-10 03:58:00 Sobeida Samson [facility] BLOOD CULTURE WORKUP 2021-11-10 03:58:00 Sobeida Samson [facility] BLOOD CULTURE SCREEN 2021-11-10 02:56:00 Sobeida Samson [facility] PROTHROMBIN TIME / INR 2021-11-10 01:47:00 Sobeida Samson [facility] D-DIMER 2021-11-10 01:47:00 Sobeida Samson [facility] ACTIVATED PARTIAL 2021-11-10 01:47:00 Sobeida Samson [facility] COVID-[facility] (ID NOW RAPID 2021-11-10 01:47:00 Sobeida Samson Un [facility] TESTING) Medical Branch LAB ONLY COVID 2021-11-10 01:47:00 Sobeida Samson [facility] INTERPRETATION [facility] AC ABG + LACTIC ACID 2021-11-10 01:45:00 Sobeida Samson [facility] XR CHEST 1 2021-11-10 01:38:00 Sobeida Samson [facility] COMP. METABOLIC PANEL 2021-11-10 01:32:00 Sobeida Samson [facility] ([id number]) [facility] [place] CBC WITH DIFF 2021-11-10 01:32:00 Sobeida Samson [facility] CONSENT/REFUSAL FOR 2021-11-10 00:42:41 Doctor Unassigned, [facility] DIAGNOSIS AND TREATMENT [place] [facility] [place] AUTHORIZATION FOR RELEASE 2021-11-07 06:01:00 Doctor Unassigned, [facility] Name Medical [place] EXTERNAL PROVIDER - 2021-11-03 06:01:00 Doctor Unassjael, [facility] WOMEN'S SERVICES [place] [facility] [place] RADIOLOGY XR CHEST 1 2021-10-24 18:45:48 Abu Sher [facility] XR CHEST 1 2021-10-24 18:45:48 Abu Sher [facility] BASIC METABOLIC PANEL 2021-10-24 12:36:00 [facility] (NA, K, CL, CO2, GLUCOSE, Medica l Branch BUN, CREATININE, CA) CBC WITHOUT DIFF 2021-10-24 12:36:00 Renato [facility] BASIC METABOLIC PANEL 2021-10-24 12:36:00 [facility] (NA, K, CL, CO2, GLUCOSE, Medica l Branch BUN, CREATININE, CA) CBC WITHOUT DIFF 2021-10-24 12:36:00 Renato [facility] XR CHEST 1 2021-10-22 15:58:26 Abu Sher [facility] XR CHEST 1 2021-10-22 15:58:26 Abu Sher [facility] MAGNESIUM 2021-10-22 10:47:00 Zelda Rose [facility] BASIC METABOLIC PANEL 2021-10-22 10:47:00 Ezkevin, Ali [facility] (NA, K, CL, CO2, GLUCOSE, Medica l Branch BUN, CREATININE, CA) CBC WITH DIFF 2021-10-22 10:47:00 Zelda Rose [facility] MAGNESIUM 2021-10-22 10:47:00 Rose [facility] BASIC METABOLIC PANEL 2021-10-22 10:47:00 Rose [facility] (NA, K, CL, CO2, GLUCOSE, Medica l Branch BUN, CREATININE, CA) CBC WITH DIFF 2021-10-22 10:47:00 Rose Zelda [facility] XR CHEST 1 VW 2021-10-21 22:10:00 AbAnaya Dover [facility] XR CHEST 1 VW 2021-10-21 22:10:[address] [address] [facility] AC PANEL 20 + LACTIC ACID 2021-10-21 20:28:00 Abki Olivarez [facility] AC PANEL 20 + LACTIC ACID 2021-10-21 20:28:[address] [facility] CYTO BAL 2021-10-21 18:49:00 Anaya Guallpa [facility] BODY FLUID DIRECT COUNT 2021-10-21 18:47:00 Anaya Guallpa [facility] BODY FLUID DIRECT COUNT 2021-10-21 18:47:00 Anaya Guallpa [facility] AF[employer] CULTURE 2021-10-21 18:46:00 Anaya Guallpa [facility] FUNGUS (ROUTINE) CULTURE 2021-10-21 18:46:[address] [facility] MYCOBACTERIUM 2021-10-21 18:46:00 Anaya Guallpa [facility] TUBERCULOSIS COMPLEX PCR [facility] RESPIRATORY PANEL BY PCR 2021-10-21 18:46:[address] [facility] AFB CULTURE 2021-10-21 18:46:00 Anaya Guallpa [facility] FUNGUS (ROUTINE) CULTURE 2021-10-21 18:46:00 Sunday MaliCase saucedoamina [facility] MYCOBACTERIUM 2021-10-21 18:46:00 Anaya Guallpa [facility] TUBERCULOSIS COMPLEX PCR Medical [place] RESPIRATORY PANEL BY PCR 2021-10-21 18:46:00 Anaya Guallpa [facility] BASIC METABOLIC PANEL 2021-10-21 18:44:00 Anaya Guallpa [facility] (NA, K, CL, CO2, GLUCOSE, Medica l Branch BUN, CREATININE, CA) BASIC METABOLIC PANEL 2021-10-21 18:44:00 u Sher Caseamina Uni versity [facility] (NA, K, CL, CO2, GLUCOSE, Medica l Branch BUN, CREATININE, CA) CBC WITH DIFF 2021-10-21 18:41:00 Anaya Guallpa [facility] PROTHROMBIN TIME / INR 2021-10-21 18:41:00 Anaya [facility]all[facility] 2021-10-21 18:41:00 Anaya Guallpa [facility] CBC WITH DIFF 2021-10-21 18:41:00 Anaya Guallpa [facility] PROTHROMBIN TIME / INR 2021-10-21 18:41:00 Anaya Guallpa [facility] FIBRINOGEN 2021-10-21 18:41:[address] [facility] ANTI-NUCLEAR ANTIBODY 2021-10-21 18:41:00 Anaya Guallpa Uni [facility] FL TIME OR 2021-10-21 18:18:06 Anaya Guallpa [facility] (NON-REPORTABLE) [facility] [place] TIME OR 2021-10-21 18:18:06 Anaya Guallpa [facility] (NON-REPORTABLE) [facility] FLEXIBLE BRONCHOSCOPY 2021-10-21 16:21:00 Anaya Guallpa [facility] FLEXIBLE BRONCHOSCOPY 2021-10-21 16:21:00 Anaya Guallpa Uni [facility] XR CHEST 1 VW 2021-10-20 11:13:00 Abu Sher [facility] XR CHEST 1 VW 2021-10-20 11:13:00 Abu Sher [facility] CBC WITH DIFF 2021-10-20 10:30:00 Maggie Morgan [facility] CBC WITH DIFF 2021-10-20 10:30:00 Maggie Morgan [facility] URIC ACID 2021-10-20 10:29:00 Abu Mali [facility] BASIC METABOLIC PANEL 2021-10-20 10:29:00 Maggie Morgan [facility] (NA, K, CL, CO2, GLUCOSE, Medica l Branch BUN, CREATININE, CA) URIC ACID 2021-10-20 10:29:00 Abu Sher [facility] BASIC METABOLIC PANEL 2021-10-20 10:29:00 Maggie Morgan [facility] (NA, K, CL, CO2, GLUCOSE, Medica l Branch BUN, CREATININE, CA) XR CHEST 1 VW 2021-10-19 18:11:14 Abu Sher [facility] XR CHEST 1 VW 2021-10-19 18:11:14 Abu Sher [facility] CBC WITH DIFF 2021-10-19 09:05:00 Maggie Morgan [facility] CBC WITH DIFF 2021-10-19 09:05:00 Maggie Morgan [facility] MAGNESIUM 2021-10-19 09:04:00 Zelda Rose [facility] BASIC METABOLIC PANEL 2021-10-19 09:04:00 Maggie Morgan [facility] (NA, K, CL, CO2, GLUCOSE, Medica l Branch BUN, CREATININE, CA) MAGNESIUM 2021-10-19 09:04:00 Zelda Rose [facility] BASIC METABOLIC PANEL 2021-10-19 09:04:00 Maggie Morgan [facility] (NA, K, CL, CO2, GLUCOSE, Medica l Branch BUN, CREATININE, CA) POCT GLUCOSE (AUTOMATED) 2021-10-19 02:24:00 Blanca Talavera [facility] POCT GLUCOSE (AUTOMATED) 2021-10-19 02:24:00 Blanca Talavera [facility] COVID-19 (MOLECULAR 2021-10-18 19:48:00 Vale Jones [facility] NUCLEIC ACID AMPLIFICATION) LAB ONLY COVID 2021-10-18 19:48:00 [facility] COVID-19 (MOLECULAR 2021-10-18 19:48:00 [facility] NUCLEIC ACID AMPLIFICATION) LAB ONLY COVID 2021-10-18 19:48:00 [facility] ANGIOTENSIN CONVERTING 2021-10-18 19:45:00 Vale [facility] [place] RHEUMATOID FACTOR 2021-10-18 19:45:00 Amadou [facility] ANCA SCREEN 2021-10-18 19:45:[address] [facility] ANGIOTENSIN CONVERTING 2021-10-18 19:45:00 Vale Jones [facility] [place] RHEUMATOID FACTOR 2021-10-18 19:45:00 Amadou [facility] ANCA SCREEN 2021-10-18 19:45:[address] [facility] XR CHEST 1 VW 2021-10-18 12:37:00 Abu Sher [facility] XR CHEST 1 VW 2021-10-18 12:37:[address] [facility] PHOSPHORUS 2021-10-18 09:30:00 Rose [facility] MAGNESIUM 2021-10-18 09:30:00 Rose [facility] BASIC METABOLIC PANEL 2021-10-18 09:30:00 Zelda Rose [facility] (NA, K, CL, CO2, GLUCOSE, Medica l Branch BUN, CREATININE, CA) CBC WITH DIFF 2021-10-18 09:30:00 Rose [facility] GLYCOSYLATED HEMOGLOBIN 2021-10-18 09:30:00 Maggie Morgan [facility] (A1C) Medical Branch PHOSPHORUS 2021-10-18 09:30:00 Rose [facility] MAGNESIUM 2021-10-18 09:30:00 Ezkevin, [facility] BASIC METABOLIC PANEL 2021-10-18 09:30:00 Rose [facility] (NA, K, CL, CO2, GLUCOSE, Medica l Branch BUN, CREATININE, CA) CBC WITH DIFF 2021-10-18 09:30:00 Rose, [facility] GLYCOSYLATED HEMOGLOBIN 2021-10-18 09:30:00 Maggie Morgan [facility] BASIC METABOLIC PANEL 2021-10-18 00:43:00 Abu Sher, Casean [facility] (NA, K, CL, CO2, GLUCOSE, Medica l Branch BUN, CREATININE, CA) BASIC METABOLIC PANEL 2021-10-18 00:43:00 Abu Atherah, Emran [facility] (NA, K, CL, CO2, GLUCOSE, Medica l Branch BUN, CREATININE, CA) N-TERMINAL PRO-BNP 2021-10-17 21:27:[address] [facility] N-TERMINAL PRO-BNP 2021-10-17 21:27:00 [facility] TRANST[facility]ORACIC ECHO (TTE) 2021-10-17 17:05:00 [facility] TRANSTHORACIC ECHO (TTE) 2021-10-17 17:05:00 Vito Bourgeoisdaysi [facility] XR CHEST 1 VW 2021-10-17 17:00:[address] [facility] XR CHEST 1 VW 2021-10-17 17:00:[address] [facility] XR CHEST 1 VW 2021-10-17 14:17:[address] [facility] XR CHEST 1 VW 2021-10-17 14:17:[address] [facility] ABG+COOX+NA+K+GLU+CA2+ 2021-10-17 13:25:[address] [facility] ABG+COOX+NA+K+GLU+CA2+ 2021-10-17 13:25:[address] [facility] PHOSPHORUS 2021-10-17 10:28:[address] [facility] MAGNESIUM 2021-10-17 10:28:[address] [facility] BASIC METABOLIC PANEL 2021-10-17 10:28:00 Josie [facility] (NA, K, CL, CO2, GLUCOSE, Medica l Branch BUN, CREATININE, CA) SEDIMENTATION RATE 2021-10-17 10:28:00 Jennifer [facility] CBC WITH DIFF 2021-10-17 10:28:[address] [facility] ANTI-NUCLEAR ANTIBODY 2021-10-17 10:28:[address] [facility] ANTI-NUCLEAR ANTIBODY 2021-10-17 10:28:00 Faraz Rodriguez [facility] ANTI-DOUBLE STRANDED DNA 2021-10-17 10:28:00 Amadou Putnam [facility] HIV 1/2 AG-AB WITH REFLEX 2021-10-17 10:28:00 Anaya Guallpa [facility] ANTI-NUCLEAR 2021-10-17 10:28:00 Faraz Rodriguez [facility] ANTIBODY-PATHOLOGIST Medical [place] INTERPRETATION PHOSPHORUS 2021-10-17 10:28:[address] [facility] MAGNESIUM 2021-10-17 10:28:[address] [facility] BASIC METABOLIC PANEL 2021-10-17 10:28:00 Josie [facility] (NA, K, CL, CO2, GLUCOSE, Medica l Branch BUN, CREATININE, CA) SEDIMENTATION RATE 2021-10-17 10:28:00 Jennifer [facility] CBC WITH DIFF 2021-10-17 10:28:00 Samir Galindo [facility] ANTI-NUCLEAR ANTIBODY 2021-10-17 10:28:[address] [facility] ANTI-NUCLEAR ANTIBODY 2021-10-17 10:28:00 Faraz Rodriguez [facility] ANTI-DOUBLE STRANDED DNA 2021-10-17 10:28:00 Amadou Putnam [facility] HIV 1/2 AG-AB WITH REFLEX 2021-10-17 10:28:00 Abu Anaya Olivarez [facility] ANTI-NUCLEAR 2021-10-17 10:28:00 Jennifer [facility] ANTIBODY-PATHOLOGIST Medical [facility] INTERPRETATION BLOOD CULTURE SCREEN 2021-10-16 17:40:00 Amadou [facility]nam [facility] BLOOD CULT[facility] SCREEN 2021-10-16 17:40:00 Amadou Putnam [facility] XR CHEST 1 VW 2021-10-16 16:56:36 [facility]W 2021-10-16 16:56:36 Bk [facility] RESPIRATORY PANEL BY PCR 2021-10-16 14:46:00 Amadou Putnam [facility] RESPIRATORY PANEL BY PCR 2021-10-16 14:46:00 Amadou Putnam [facility] PHOSPHORUS 2021-10-16 10:47:00 Samir Galindo [facility] MAGNESIUM 2021-10-16 10:47:00 Samir Galindo [facility] BASIC METABOLIC PANEL 2021-10-16 10:47:00 Samir Galindo [facility] (NA, K, CL, CO2, GLUCOSE, Medica l Branch BUN, CREATININE, CA) CBC WITH DIFF 2021-10-16 10:47:00 Samir Galindo [facility] AC PANEL 20 + LACTIC ACID 2021-10-16 10:47:00 Samir Gal[facility] PHOSPHORUS 2021-10-16 10:47:00 Samir Galindo [facility] MAGNESIUM 2021-10-16 10:47:00 Samir Galindo [facility] BASIC METABOLIC PANEL 2021-10-16 10:47:00 [facility] ([facility], K, CL, CO2, GLUCOSE, Medica l Branch BUN, CREATININE, CA) CBC WITH DIFF 2021-10-16 10:47:00 Samir Galindo [facility] AC PANEL 20 + LACTIC ACID 2021-10-16 10:47:00 Samir Galindo [facility] C-REACTIVE PROTEIN 2021-10-15 22:38:00 Jennifer [facility] TROPONIN I 2021-10-15 22:38:00 Ilan [facility] BASIC METABOLIC PANEL 2021-10-15 22:38:00 [facility] (NA, K, CL, CO2, GLUCOSE, Medica l Branch BUN, CREATININE, CA) C-REACTIVE PROTEIN 2021-10-15 22:38:00 Rodriguez [facility] TROPONIN I 2021-10-15 22:38:00 Ilan [facility] BASIC METABOLIC PANEL 2021-10-15 22:38:00 [facility] (NA, K, CL, CO2, GLUCOSE, Medica l Branch BUN, CREATININE, CA) PNEUMOCOCCAL ANTIGEN 2021-10-15 21:49:[address] [facility] PNEUMOCOCCAL ANTIGEN 2021-10-15 21:49:[address] [facility] LEGIONELLA URINARY 2021-10-15 21:48:00 Josie [facility] ANTIGEN [facility] LEGIONELLA URINARY 2021-10-15 21:48:00 Josie [facility] ANTIGEN [facility] CT ANGIOGRAM CHEST 2021-10-15 19:22:00 Abu [facility] ANGIOGRAM CHEST 2021-10-15 19:22:00 Abu Anaya [facility] TROPONIN I 2021-10-15 17:29:00 Ilan [facility] RAPID INFLUENZA A/B 2021-10-15 17:29:00 [facility] N-TERMINAL PRO-BNP 2021-10-15 17:29:00 Nicol [facility] PROCALCITONIN 2021-10-15 17:29:00 Vito Bourgeoisdaysi [facility] COVID-19 (MOLECULAR 2021-10-15 17:29:00 Vito [facility]isdaysi [facility] NUCLEIC ACID AMPLIFICATION) LAB ONLY COVID 2021-10-15 17:29:00 Vito Bourgeoisdaysi [facility] TROPONIN I 2021-10-15 17:29:00 [facility] RAPID INFLUENZA A/B 2021-10-15 17:29:00 Nicol [facility] N-TERMINAL PRO-BNP 2021-10-15 17:29:00 Nicol [facility] PROCALCITONIN 2021-10-15 17:29:00 Vito Bourgeoisdaysi [facility] COVID-19 (MOLECULAR 2021-10-15 17:29:00 [facility] NUCLEIC ACID AMPLIFICATION) LAB ONLY COVID 2021-10-15 17:29:00 Nicol Bourgeois [facility] COVID-19 (ID NOW RAPID 2021-10-15 13:03:00 AhSamir lawton [facility] TESTING) Medical Branch LAB ONLY COVID 2021-10-15 13:03:00 Josie Samir [facility] COVID-19 (ID NOW RAPID 2021-10-15 13:03:00 Ahleighann, Samir [facility] TESTING) Medical Branch LAB ONLY COVID 2021-10-15 13:03:00 Samir Galindo [facility] XR CHEST 1 VW 2021-10-15 09:46:38 Il[facility] XR CHEST 1 VW 2021-10-15 09:46:38 Ilan [facility] MAGNESIUM 2021-10-15 08:16:[address] [facility] BASIC METABOLIC PANEL 2021-10-15 08:16:[address] [facility] sity [facility] (NA, K, CL, CO2, GLUCOSE, Medica l Branch BUN, CREATININE, CA) PROCALCITONIN 2021-10-15 08:16:00 [facility] 2021-10-15 08:16:[address] [facility] BASIC METABOLIC PANEL 2021-10-15 08:16:[address] [facility] sity [facility] (NA, K, CL, CO2, GLUCOSE, Medica l Branch BUN, CREATININE, CA) PROCALCITONIN 2021-10-15 08:16:00 [facility] ABG+COOX+NA+K+GLU+CA2+ 2021-10-15 07:24:00 Samir Galindo [facility] ABG+COOX+NA+K+GLU+CA2+ 2021-10-15 07:24:00 Samir Galindo [facility] TROPONIN I 2021-10-15 07:10:00 Ilan [facility] CBC WITH DIFF 2021-10-15 07:10:00 Josie Samir [facility] TROPONIN I 2021-10-15 07:10:00 Ilan [facility] CBC WITH DIFF 2021-10-15 07:10:[address] [facility] MRSA / MSSA SCREEN BY 2021-10-15 07:09:[address] [facility] sity [facility] MRSA / MSSA SCREEN BY 2021-10-15 07:09:00 Samir Galindo [facility] AUTHORIZATION FOR RELEASE 2021-06-09 05:01:00 Doctor Casandra, [facility] [place] [facility] Plan of Care Planned Activity Planned Date Details Comments Source Goal Plan of Care Note [code = 78593-8] Goal Plan of Care Note [code = 35958-9] Goal Plan of Care Note [code = 25636-0] Goal Plan of Care Note [code = 43254-1] Goal Plan of Care Note [code = 99731-4] Goal Plan of Care Note [code = 22663-4] Goal Plan of Care Note [code = 65127-6] Goal Plan of Care Note [code = 32729-9] Goal Plan of Care Note [code = 59941-0] Goal Plan of Care Note [code = 86236-3] Goal Plan of Care Note [code = 94568-7] Goal Plan of Care Note [code = 79848-9] Goal Plan of Care Note [code = 42998-2] Goal Plan of Care Note [code = 63478-8] Goal Plan of Care Note [code = 06382-1] Goal Plan of Care Note [code = 41086-0] Goal Plan of Care Note [code = 57036-8] Goal Plan of Care Note [code = 46141-7] Goal Plan of Care Note [code = 89687-1] Goal Plan of Care Note [code = 66822-1] Goal Plan of Care Note [code = 28133-5] Goal Plan of Care Note [code = 82972-7] Goal Plan of Care Note [code = 10658-7] Encounters Start End Encounter Admission Attending Care Care Encounter Source Date/Time Date/Time Type Type Clinicians Facility Department ID 2022-06-08 2022-06-08 Orders Doctor MARISCAL 1.2.840.114 [id number] Univers 00:00:00 00:00:00 Only Unassigned, BETH 350.1.13.10 ity of [place] [facility] 4.2.7.2.686 José Miguel as [phone] [address] 2022-05-31 2022-05-31 Emergency X [facility] E[facility] [id number] Univers 20:15:00 22:49:00 GABRIEL itnorris [facility] 2022-05-31 2022-05-31 Emergency [facility] 1.2.861.715 [id number] Univers 20:15:00 22:49:00 Gabriel MARTINES 350.1.13.10 i ty [facility] 4.2.7.2.686 [facility] [id number] [facility] 084 Branch 2022-05-11 2022-05-11 Outpatient Jonh [facility] WWACU [id number] 11:42:00 23:59:00 [facility] 2022-04-17 2022-04-17 Outpatient R WILMAR MADISON [facility] [id number] Univers 20:00:00 20:00:00 WILMAR MADISON [facility] 2022-04-15 2022-04-15 Outpatient R [facility] [id number] Univers 08:00:00 08:00:00 ity [facility] 2022-04-15 2022-04-15 Outpatient [id number]- [id number] ad [id number] 00:00:00 00:00:00 Visit [id number] -4b7u-1k3 p7h-3b1cw5 [id number] 4195-08-04 2022-04-06 Outpatient Jonh [facility] WWACU [id number] 12:15:00 16:00:00 [facility] 2022-03-15 2022-03-15 Spot Machine Operator 1, [facility] Sleep Lab Bed [facility] 1. 2.840.114 [id number] Univers 20:00:00 22:30:00 Visit Wilmar Madison 350.1.13. 10 ity [facility] 4.2.7.2.686 [facility] [phone] [facility] 193 Branch 2022-03-15 2022-03-15 Outpatient R WILMAR MADISON [facility] [id number] Univers 20:00:00 20:00:00 WILMAR MADISON itnorris [facility] 2022-03-14 2022-03-14 Laboratory Only, [facility] Test [facility] 1.2.840. 114 [id number] Univers 15:30:00 15:45:00 Only Wilmar Madison 350.1.13. 10 ity of [place] [facility] 4.2.7.2.686 [facility] [id number] [facility] 353 Branch 2022-03-14 2022-03-14 Outpatient R WILMAR MADISON [facility] [id number] Univers 15:30:00 15:30:00 ATACONSTANCEWILMAR ity of [facility] 2022-03-14 2022-03-14 Orders Doctor LOIDA 1.2.840.114 [id number] Univers 00:00:00 00:00:00 Only Unassigned, BETH 350.1.13.10 ity of [facility] 4.2.7.2.686 [facility] [id number] [facility] 009 Branch 2022-02-25 2022-02-26 Outpatient X ABU [facility] ERIN [id number] Univers 18:18:00 12:30:00 chastity OLIVAREZ o f [facility] 2022-02-25 2022-02-26 Emergency Chapin Sobeida [facility] 1.2.8 40.114 [id number] Univers 18:18:00 12:30:00 Abu [facility] 350.1.13.10 ity [facility] 4.2.7.2.686 [facility] [id number] [facility] 110 Branch ([facility]) 2022-02-22 2022-02-23 Emergency X PANDYA, [facility] ERT [id number] Univers 21:42:00 01:19:00 BRO ity [facility] 2022-02-22 2022-02-23 Emergency Pandya, [facility] 1.2.840.114 [id number] Univers 21:42:00 01:19:00 Bro ANGLESONG 350.1.13.10 i ty of [place] 4.2.7.2.686 [facility] [id number] [facility] 084 Branch 2022-01-29 2022-01-29 Emergency X JADEN RENE [facility] ERT [id number] Univers 14:38:00 16:55:00 JADEN RENE ity [facility] 2022-01-29 2022-01-29 Emergency [facility] 1.2.458.869 [id number] Univers 14:38:00 16:55:00 [facility] 350.1.13.10 it y of [place]2.7.2.686 [place] [facility] [id number] [address] ([facility]) 2022-01-29 2022-01-29 Emergency X MIGUEL Á[facility]NEW [facility] ERT [id number] Univers 07:51:00 10:37:00 MAI haywood [facility] 2022-01-29 2022-01-29 Emergency [facility] 1.2.840.114 [id number] Univers 07:51:00 10:37:00 Mai MARTINES 350.1.13.10 ity of [facility] [facility] 4.2.7.2.686 [facility] [id number] [address] 2022-01-05 2022-01-05 [facility] [id number] [address] [place] [address] 10:46:00 14:42:00 [facility] 2022-01-02 2022-01-03 Emergency [facility] ERT [id number] Univers 21:43:00 00:14:00 JACKLYN haywood [facility] 2022-01-02 2022-01-[address] [facility] 1.2.804.584 [id number] Univers 21:43:00 00:14:00 Jacklyn MARTINES 350.1.13.10 ity of [place] 4.2.7.2.686 [facility] [id number] [place] 070694 Branch 2021-12-08 2021-12-08 Transition SABINA Heart 1.2.840.114 [id number] Univers 00:00:00 00:00:00 of Care Marjan DOHERTY 350.1.13.10 i ty of [place] 4.2.7.2.[address] [facility] [phone] [facility] 403 Branch 2021-12-05 2021-12-07 Inpatient X [facility] ERIN [id number] Univers 17:33:00 12:01:00 GELY haywood [facility] 2021-12-05 2021-12-07 Hospital Christos Tovar [facility] 1.2.840.1 [id number] Univers 17:33:00 12:01:00 Encounter Jacklyn Guillen 350.1.13.1 0 ity of [place] 4.2.7.2.686 [place] [id number] [facility] 080 Branch 2021-12-03 2021-12-05 Outpatient X MICHEL [facility] ERIN [id number] Univers 12:50:00 05:42:00 WILFRID ity of [facility] 2021-12-03 2021-12-05 [facility] Gonsalo, Maury Borja [facility] 1.2.84 0.114 [id number] Univers 12:50:00 05:42:00 Encounter MichelNancyy HEALTH 350.1.13.10 ity of [place] [id number] [facility] 113 Branch ([facility]) 2021-11-23 2021-11-23 Orders Doctor LOIDA 1.2.840.114 [id number] Univers 00:00:00 00:00:00 Only Unassigned, BETH 350.1.13.10 ity of [place] [facility] 4.2.7.2.686 [facility] [id number] [facility] 009 Branch 2021-11-09 2021-11-11 Outpatient X MICHEL [facility] [id number] Univers 18:47:00 17:31:00 WILFRID ity of [facility] 2021-11-09 2021-11-11 Emergency Sobeida Samson [facility] 1.2.8 40.114 [id number] Univers 18:47:00 17:31:00 Teqwimyunh, Wilfrid HEALTH 350.1.13.10 ity of [place] [id number] [facility] 116 Branch ([facility]) 2021-11-07 2021-11-07 Orders Doctor LOIDA 1.2.840.114 [id number] Univers 00:00:00 00:00:00 Only Unassigned, BETH 350.1.13.10 ity of [place] [facility] 4.2.7.2.686 José Miguel as [id number] [facility] 00[address] [place] 2021-11-03 2021-11-03 Orders Doctor LOIDA 1.2.840.114 [id number] Univers 00:00:00 00:00:00 Only Unassigned, BETH 350.1.13.10 ity of [place] [facility] 4.2.7.2.686 José Miguel as [id number] [facility] [address] [place] 2021-10-25 2021-10-25 Transition SABINA Waters 1.2.840.114 [id number] Univers 00:00:00 00:00:00 of Care Any Ajit DOHERTY 350.1.13.10 i ty of [place].2.686 [place] [id number] [place] [address] Branch 2021-10-15 2021-10-24 [facility] [id number] Univers 00:23:00 17:53:00 FLASH haywood of [facility] 2021-10-15 2021-10-24 Hospital Eli Talaveraa [facility] 1.2.840.114 [id number] Univers 00:23:00 17:53:00 Encounter Ahmed, Samir HEALTH 350.1.13.10 ity of [place] Rodriguez 4.2.7.2.686 [place] Flash Kimball [phone] [facility] [address] [place] ([facility]) 2021-10-21 2021-10-21 Surgery Abu [facility] 1.2.840.114 [id number] Univers 10:00:00 10:45:00 Atherah, HEALTH 350.1.13.10 i ty of [place].2.[place] [id number] [facility] 020 Branch ([facility]) 2021-06-09 2021-06-09 Orders Doctor MARISCAL 1.2.840.114 [id number] Univers 00:00:00 00:00:00 Only Unassigned, BETH 350.1.13.10 ity of [place] [facility] 4.2.7.2.686 José Miguel as [phone] [place] [address] Branch 2012-11-25 2012-11-25 Outpatient GABRIEL SHAIKH [facility] 20 [id number] Univers 00:00:00 16:37:20 GABRIEL SHAIKH 3 i ty of [facility] 2012-04-08 2012-04-08 Outpatient [facility] [id number] Univers 00:00:00 16:51:12 1 ity [facility] 2011-04-13 2011-04-13 Outpatient [facility] [id number] Univers 00:00:00 10:43:11 1 [facility] 2010-09-15 2010-09-15 Outpatient [facility] [id number] Univers 00:00:00 11:23:44 5 [facility] 2010-03-11 2010-03-11 Outpatient [facility] [id number] Univers 00:00:00 16:25:54 5 [facility] 2009-09-13 2009-09-13 Outpatient [facility] [id number] Univers 00:00:00 16:22:48 1 [facility] 2009-08-31 2009-08-31 Outpatient [facility] [id number] Univers 00:00:00 09:36:31 1 [facility] Results Test Description Test Time Test Comments Results Result Sourc e Comments C-ARM<1 HR W 2022-06-15 IMAGES*WW* 16:54:53 [facility] : 1970 Sex: F Fl uoroscopyLocation Code: [id number] HISTORY: Surgical procedureComments: Fluoroscopy was provided during cervical injection. Total reference Air Kerma: 0.46 mGy. Approximate fluoroscopy time: 6.3 seconds. Images obtained: 4 IMPRESSION: Fluoroscopy services provided. Please see operative report for full details. Electronically signed by: Gabriele Castaneda MD 06/15/2022 4:54 PM CDT URINE MONOCLONAL *WW* 2022-06-15 14:02:00 Test Item Value Reference Range Interpretation Comme nts PREG UR (test code = PGU) NEGATIVE NEGATIVE C-ARM<1 HR W IMAGES*WW*2022-05-12 08:26:58 [facility] : 1970 Sex: FClinical history: Surgical procedure.Location: D4.FINDINGS: 2 spot fluoroscopic intraoperative images are submitted. The images show needle placement along the lateral aspects of the cervical spine related to medial branch block. Please refer to the operative report. A total of 10.9 seconds fluoroscopy time is utilized. Cumulative dose equals 0.66 mGy.IMPRESSION:1. Intraoperative fluoroscopy.Electronically signed by:Alexey Ott MD 05/12/2022 8:26 AM CDT [id number] URINE MONOCLONAL *WW*2022-05-11 12:51:00 Test Item Value Reference Range Interpretation Comments PREG UR (test code = PGU) NEGATIVE NEGATIVE C-ARM<1 HR W IMAGES*WW*2022-04-06 16:03:45 [facility] : 1970 Sex: FFluoroscopyLocation Code: [id number] HISTORY: Neck painComments: Fluoroscopy was provided during bilateral medial branch block. Approximately fluoroscopy time was 5.0 seconds. 2 fluoroscopic spot images were taken.IMPRESSION: Fluoroscopy services provided. Please see operative report for full details.Electronically signed by: Iglesia Garvey MD 04/06/2022 4:03 PM CDT [id number] URINE MONOCLONAL *WW*2022-04-06 12:39:00 Test Item Value Reference Range Interpretation Comments PREG UR (test code = PGU) NEGATIVE NEGATIVE Basic Metabolic Panel (NA, K, CL, CO2, GLUCOSE, BUN, CREATININE, CA)2022-02-26 09:48:31 Test Item Value Reference Range Interpretation Comments NA (test code = 143 mmol/L 135-145 1272294580) K (test code = 3.5 mmol/L 3.5-5.0 8550567135) CL (test code = 114 mmol/L 98-108 H 0080005352) CO2 TOTAL (test code = 24 mmol/L 23-31 4838855176) AGAP (test code = 2-16 8007339785) BUN (test code = 9 mg/dL 7-23 0150157288) GLUCOSE (test code = 96 mg/dL 70-110 4516360646) CREATININE (test code = 0.92 mg/dL 0.50-1.04 6962984554) CALCIUM (test code = 8.1 mg/dL 8.6-10.6 L 7287187147) eGFR (test code = mL/min/1.73m2 9711555274) LUCILLE (test code = LUCILLE) Association of [...] tests). Lab Interpretation Abnormal (test code = 77878-5) [facility] with Xicogsxmylap2407-47-31 09:36:32 Test Item Value Reference Range Interpretation Comments WBC (test code = See_Comment [Automated 4890-2) message] The sy stem which generated this result transmitted reference range : 4.30 - 11.10 10*3/?L. The reference range was not used to interpret this result as normal/abnormal . RBC (test code = See_Comment [Automated 979-8) message] The sy stem which generated this [...] RDW-SD (test code = 46.8 fL 39.0-49.9 81877-0) RDW-CV (test code = 16.7 % 12.0-15.5 H 788-0) PLT (test code = See_Comment [Automated 777-3) message] The sy stem which generated this result transmitted reference range : 166 - 358 10*3/ ?L. The reference r nicholas was not used to interpret this result as normal/abnormal . MPV (test code = 10.8 fL 9.5-12.9 56060-3) NRBC/100 WBC (test See_Comment [Automat ed code = 5592408396) message] The system which generated this result transmitted reference range : 0.0 - 10.0 /100 WBCs. The refer ence range was not u sed to interpret th is result as normal/abnormal . NRBC x10^3 (test code <0.01 See_Comment [Auto mated = 9953264730) message] The s ystem which generated this result transmitted reference range : 10*3/?L. The reference range was not used to interpret this result as normal/abnormal . GRAN MAT (NEUT) % 54.4 % (test code = 770-8) IMM GRAN % (test code 0.20 % = 2349439877) LYMPH % (test code = 31.5 % 736-9) MONO % (test code = 8.7 % 5905-5) EOS % (test code = 3.2 % 713-8) BASO % (test code = 2.0 % 706-2) GRAN MAT x10^3(ANC) 2.69 10*3/uL 1.88-7.09 (test code = 0215177189) IMM GRAN x10^3 (test <0.03 0.00-0.06 code = 3572865741) LYMPH x10^3 (test code 1.56 10*3/uL 1.32-3.29 = 731-0) MONO x10^3 (test code 0.43 10*3/uL 0.33-0.92 = 742-7) EOS x10^3 (test code = 0.16 10*3/uL 0.03-0.39 711-2) BASO x10^3 (test code 0.10 10*3/uL 0.01-0.07 H = 704-7) Lab Interpretation Abnormal (test code = 52564-3) [facility] [id number] 04:00:15 Test Item Value Reference Interpretation Comments Range TROPONIN I (test 0.004 ng/mL See_Comment [Automated code = 0179247416) message] The system which generated this result [...] biotin. Lab Interpretation Normal (test code = 54197-6) [facility] [id number] 04:00:15 Test Item Value Reference Range Interpretation Comments NT-proBNP (test code 42 pg/mL See_Comment [Autom ated = 0315993784) message] The system which generated this result transmitted reference range : <=125. The reference range was not used to interpret this result as normal/abnormal . LUCILLE (test code = LUCILLE) Biotin has been reported to cause a negative bias, interpret results relative to patient's use of biotin. Lab Interpretation Normal (test code = 69318-0) [facility] METABOLIC PANEL (55437)2022-02-26 03:48:34 Test Item Value Reference Range Interpretation Comments NA (test code = 142 mmol/L 135-145 0747567430) K (test code = 3.6 mmol/L 3.5-5.0 Slight 3164252024) hemolysis CL (test code = 109 mmol/L 98-108 H 6463137735) CO2 TOTAL (test code 26 mmol/L 23-31 = 7980105176) AGAP (test code = 2-16 5993539579) BUN (test code = 10 mg/dL 7-23 Slight 8156367478) hemolysis GLUCOSE (test code = 84 mg/dL 70-110 7519868407) CREATININE (test code 0.99 mg/dL 0.50-1.04 = 2528069077) TOTAL BILI (test code 0.4 mg/dL 0.1-1.1 = 6796142007) CALCIUM (test code = 8.9 mg/dL 8.6-10.6 3576417560) T PROTEIN (test code 6.5 g/dL 6.3-8.2 = 3762688710) ALBUMIN (test code = 4.0 g/dL 3.5-5.0 2192086995) ALK PHOS (test code = 71 U/L 34-122 Slight 1753612104) hemolysis ALTv (test code = 18 U/L 5-35 1742-6) AST(SGOT) (test code 25 U/L 13-40 Slight = 9444459388) hemolysis eGFR (test code = mL/min/1.73m2 2979463283) LUCILLE (test code = LUCILLE) Association of [...] tests). Lab Interpretation Abnormal (test code = 47572-2) [facility]2022-06-26 03:48:34 Test Item Value Reference Range Interpretation Comments LIPASE (test code = 1461538775) 166 U/L 0-220 Lab Interpretation (test code = Normal 77325-1) [facility] WITH [id number] 03:34:33 Test Item Value Reference Range Interpretation [...] RDW-SD (test code = 47.2 fL 39.0-49.9 88655-0) RDW-CV (test code = 16.8 % 12.0-15.5 H 788-0) PLT (test code = See_Comment [Automated 777-3) message] The sy stem which generated this result transmitted reference range : 166 - 358 10*3/ ?L. The reference r nicholas was not used to interpret this result as normal/abnormal . MPV (test code = 10.3 fL 9.5-12.9 69594-2) NRBC/100 WBC (test See_Comment [Automat ed code = 4471262461) message] The system which generated this result transmitted reference range : 0.0 - 10.0 /100 WBCs. The refer ence range was not u sed to interpret th is result as normal/abnormal . NRBC x10^3 (test code <0.01 See_Comment [Auto mated = 2364440228) message] The s ystem which generated this result transmitted reference range : 10*3/?L. The reference range was not used to interpret this result as normal/abnormal . GRAN MAT (NEUT) % 51.0 % (test code = 770-8) IMM GRAN % (test code 0.20 % = 6255732385) LYMPH % (test code = 31.6 % 736-9) MONO % (test code = 10.7 % 5905-5) EOS % (test code = 4.3 % 713-8) BASO % (test code = 2.2 % 706-2) GRAN MAT x10^3(ANC) 2.59 10*3/uL 1.88-7.09 (test code = 9874148475) IMM GRAN x10^3 (test <0.03 0.00-0.06 code = 8112796373) LYMPH x10^3 (test code 1.60 10*3/uL 1.32-3.29 = 731-0) MONO x10^3 (test code 0.54 10*3/uL 0.33-0.92 = 742-7) EOS x10^3 (test code = 0.22 10*3/uL 0.03-0.39 711-2) BASO x10^3 (test code 0.11 10*3/uL 0.01-0.07 H = 704-7) Lab Interpretation Abnormal (test code = 93988-6) [facility]uda[facility]END[facility] [id number] 06:03:26 Test Item Value Reference Interpretation Comments Range TROPONIN I (test 0.003 ng/mL See_Comment [Automated code = 5932136672) message] The system which generated this result [...] biotin. Lab Interpretation Normal (test code = 00060-3) [facility] [id number] 03:56:22 Test Item Value Reference Interpretation Comments Range TROPONIN I (test 0.003 ng/mL See_Comment [Automated code = 4853235002) message] The system which generated this result [...] biotin. Lab Interpretation Normal (test code = 42121-0) [facility] [id number] 03:53:00 Test Item Value Reference Range Interpretation Comments NT-proBNP (test code 143 pg/mL See_Comment H [Autom ated = 0871503692) message] The system which generated this result transmitted reference range : <=125. The reference range was not used to interpret this result as normal/abnormal . LUCILLE (test code = LUCILLE) Biotin has been reported to cause a negative bias, interpret results relative to patient's use of biotin. Lab Interpretation Abnormal (test code = 42549-3) [facility]. METABOLIC PANEL (81248)2022-02-23 03:45:59 Test Item Value Reference Range Interpretation Comments NA (test code = 140 mmol/L 135-145 9366444171) K (test code = 4.0 mmol/L 3.5-5.0 6155874155) CL (test code = 110 mmol/L 98-108 H 4460393430) CO2 TOTAL (test code = 17 mmol/L 23-31 L 5921523742) AGAP (test code = 2-16 3592666276) BUN (test code = 14 mg/dL 7-23 4961329970) GLUCOSE (test code = 105 mg/dL 70-110 1621011075) CREATININE (test code = 1.03 mg/dL 0.50-1.04 3775921180) TOTAL BILI (test code = 0.3 mg/dL 0.1-1.7 7710519805) CALCIUM (test code = 8.9 mg/dL 8.6-10.6 6862803563) T PROTEIN (test code = 6.1 g/dL 6.3-8.2 L 3399570724) ALBUMIN (test code = 3.8 g/dL 3.5-5.0 6373440033) ALK PHOS (test code = 91 U/L 34-122 8645568435) ALTv (test code = 19 U/L 5-35 1742-6) AST(SGOT) (test code = 21 U/L 13-40 2734530233) eGFR (test code = mL/min/1.73m2 4721343987) LUCILLE (test code = LUCILLE) Association of [...] tests). Lab Interpretation Abnormal (test code = 66532-9) [facility] WITH [id number] 03:23:19 Test Item Value Reference Range Interpretation Comments WBC (test code = See_Comment [Automated 0490-2) message] The sy stem which generated this [...] RDW-SD (test code = 45.7 fL 39.0-49.9 18737-7) RDW-CV (test code = 16.6 % 12.0-15.5 H 788-0) PLT (test code = See_Comment [Automated 777-3) message] The sy stem which generated this result transmitted reference range : 166 - 358 10*3/ ?L. The reference r nicholas was not used to interpret this result as normal/abnormal . MPV (test code = 10.9 fL 9.5-12.9 98557-1) NRBC/100 WBC (test See_Comment [Automat ed code = 8273713489) message] The system which generated this result transmitted reference range : 0.0 - 10.0 /100 WBCs. The refer ence range was not u sed to interpret th is result as normal/abnormal . NRBC x10^3 (test code <0.01 See_Comment [Auto mated = 6988378370) message] The s ystem which generated this result transmitted reference range : 10*3/?L. The reference range was not used to interpret this result as normal/abnormal . GRAN MAT (NEUT) % 53.8 % (test code = 770-8) IMM GRAN % (test code 0.20 % = 4225565760) LYMPH % (test code = 34.0 % 736-9) MONO % (test code = 7.9 % 5905-5) EOS % (test code = 2.6 % 713-8) BASO % (test code = 1.5 % 706-2) GRAN MAT x10^3(ANC) 3.25 10*3/uL 1.88-7.09 (test code = 2375180952) IMM GRAN x10^3 (test <0.03 0.00-0.06 code = 5481040994) LYMPH x10^3 (test code 2.06 10*3/uL 1.32-3.29 = 731-0) MONO x10^3 (test code 0.48 10*3/uL 0.33-0.92 = 742-7) EOS x10^3 (test code = 0.16 10*3/uL 0.03-0.39 711-2) BASO x10^3 (test code 0.09 10*3/uL 0.01-0.07 H = 704-7) Lab Interpretation Abnormal (test code = 23774-6) [facility], THIRD [id number] 09:21:37 Test Item Value Reference Range Interpretation Comments TSH, THIRD TEST NOT 0.400-4.100 TESTING CANNOT BE GENERATION (test PERFORMED UIU/ML PERFORM ED DUE TO AN code = 2821) INTERFERING SUBSTANCE. LB GES DELETED. [id number] 09:21:37 Test Item Value Reference Range Interpretation Comments PROGESTERONE (test TEST NOT SEE BELOW TESTING CANNOT BE code = 4070) PERFORMED NG/ML PERFORMED DU E TO AN INTERFERING SUBSTANCE. LB GES DELETED. EXPECTED VALUES FOR PROGESTERONE MALE . . . . . . . . . . . . . . . . NG/ML <0.20 FEM SYED FOLLICULAR PHAS E . . . . . . . . . N G/ML <0.90 OVULATIO N . . . . . . . . . . . . NG/ML <12.00 BASILIO TEAL PHASE . . . . . . [...] . . . . . NG/ML 58.70-214.00 [id number] 09:21:37 Test Item Value Reference Range Interpretation Comments ESTRADIOL (test TEST NOT SEE BELOW TESTING CAN NOT BE code = 6691) PERFORMED PG/ML PERFORMED DU E TO AN INTERFERING SUBSTANCE. LB GES DELETED. UNLESS OTHERWISE INDIC ATED, ALL TESTING PERFORMED [facility], [facility]. [address] [place] [id number] [place] [address] DIRECTOR: SADIQ VANEGAS M.D. CLIA NUMBER [id number] [place] [id number] COMPREHENSIVE METABOLIC [id number] 09:21:22 Test Item Value Reference Range Interpretation Comments GLUCOSE (test code TEST NOT 70-99 TESTING CANNOT BE = 2217) PERFORMED MG/DL PERFORMED DU E TO AN INTERFERING SUBSTANCE. LB GES DELETED. BUN (test code = TEST NOT 620 2207) PERFORMED MG/DL CREATININE (test TEST NOT 0.60-1.30 code = 2214) PERFORMED MG/DL eGFR (2020 CKD-EPI) TEST NOT >60 (test code = 98121) PERFORMED ML/MIN/1.73 CALC BUN/CREAT TEST NOT 6-28 (test code = 2234) PERFORMED RATIO SODIUM (test code = TEST NOT 000-861 0149) PERFORMED MEQ/L POTASSIUM (test TEST NOT 3.5-5.4 [...] code = TEST NOT 2218) PERFORMED U/L [id number] 00:00:00 Test Item Value Reference Range Interpretation Comments TSH, THIRD GENERATION TEST NOT PERFORMED (test code = 282) UIU/ML [id number] 00:00:00 Test Item Value Reference Range Interpretation Comments TSH, THIRD GENERATION TEST NOT PERFORMED (test code = 2821) UIU/ML [id number] 00:00:00 Test Item Value Reference Range Interpretation Comments TSH, THIRD GENERATION TEST NOT PERFORMED (test code = 2821) UIU/ML COMPREHENSIVE METABOLIC [id number] 00:00:00 Test Item Value Reference Range Interpretation Comments GLUCOSE (test code = TEST NOT PERFORMED 2216) MG/DL BUN (test code = 2207) TEST NOT PERFORMED MG/DL CREATININE (test code = TEST NOT PERFORMED 2213) MG/DL eGFR (2020 CKD-EPI) TEST NOT PERFORMED (test code = 78988) ML/MIN/1.73 CALC BUN/CREAT (test TEST NOT PERFORMED [...] code = 2218) TEST NOT PERFORMED U/L COMPREHENSIVE METABOLIC [id number] 00:00:00 Test Item Value Reference Range Interpretation Comments GLUCOSE (test code = TEST NOT PERFORMED 2216) MG/DL BUN (test code = 2207) TEST NOT PERFORMED MG/DL CREATININE (test code = TEST NOT PERFORMED 2213) MG/DL eGFR (2020 CKD-EPI) TEST NOT PERFORMED (test code = 35997) ML/MIN/1.73 CALC BUN/CREAT (test TEST NOT PERFORMED [...] = 2203) U/L AST (test code = 2218) TEST NOT PERFORMED U/L ALT (test code = 2219) TEST NOT PERFORMED U/L [id number] 00:00:00 Test Item Value Reference Range Interpretation Comments PROGESTERONE (test code TEST NOT PERFORMED = 2790) NG/ML [id number] 00:00:00 Test Item Value Reference Range Interpretation Comments PROGESTERONE (test code TEST NOT PERFORMED = 2790) NG/ML [id number] 00:00:00 Test Item Value Reference Range Interpretation Comments ESTRADIOL (test code = TEST NOT PERFORMED 2505) PG/ML [id number] 00:00:00 Test Item Value Reference Range Interpretation Comments ESTRADIOL (test code = TEST NOT PERFORMED 2505) PG/ML [id number] 00:00:00 Test Item Value Reference Range Interpretation Comments ESTRADIOL (test code = TEST NOT PERFORMED 2505) PG/ML TROPONIN [id number] 14:05:29 Test Item Value Reference Interpretation Comments Range TROPONIN I (test <0.012 See_Comment [Automated code = 7712321613) message] The system which generated this result [...] biotin. Lab Interpretation Normal (test code = 10607-7) [id number] 14:02:07 Test Item Value Reference Range Interpretation Comments NT-proBNP (test code 343 pg/mL See_Comment H [Autom ated = 4800483655) message] The system which generated this result transmitted reference range : <=125. The reference range was not used to interpret this result as normal/abnormal . LUCILLE (test code = LUCILLE) Biotin has been reported to cause a negative bias, interpret results relative to patient's use of biotin. Lab Interpretation Abnormal (test code = 89647-7) [facility]. METABOLIC PANEL ([id number])2022-01-29 13:53:30 Test Item Value Reference Range Interpretation Comments NA (test code = 146 mmol/L 135-145 H 2332411751) K (test code = 4.2 mmol/L 3.5-5.0 3903566229) CL (test code = 114 mmol/L 98-108 H 9272690457) CO2 TOTAL (test code = 23 mmol/L 23-31 3763560870) AGAP (test code = 2-16 3981735867) BUN (test code = 14 mg/dL 7-23 0958609336) GLUCOSE (test code = 72 mg/dL 70-110 9080523845) CREATININE (test code = 1.08 mg/dL 0.50-1.04 H 5266653976) TOTAL BILI (test code = 0.3 mg/dL 0.1-1.7 0099450892) CALCIUM (test code = 9.1 mg/dL 8.6-10.6 7620167857) T PROTEIN (test code = 6.1 g/dL 6.3-8.2 L 5107352366) ALBUMIN (test code = 3.8 g/dL 3.5-5.0 7107316169) ALK PHOS (test code = 86 U/L 34-122 0095713633) ALTv (test code = 26 U/L 5-35 1742-6) AST(SGOT) (test code = 28 U/L 13-40 7874557227) eGFR (test code = mL/min/1.73m2 9545825547) LUCILLE (test code = LUCILLE) Association of [...] tests). Lab Interpretation Abnormal (test code = 70214-4) [facility] + LACTIC [id number] 13:52:59 Test Item Value Reference Range Interpretation Comments PH (test code = 7.32-7.42 2769118545) PCO2 WYATT (test code = See_Comment [Auto mated 7625617226) message] The sy stem which generated this result transmitted reference range : 41 - 51 mmHg. The reference range was not used to interpret this result as normal/abnormal . PO2 WYATT (test code = See_Comment L [Autom ated 6216739977) message] The sy stem which generated this result transmitted reference range : 25 - 40 mmHg. The reference range was not used to interpret this result as normal/abnormal . HCO3 WYATT (test code = See_Comment [Auto mated 8639833126) message] The sy stem which generated this result transmitted reference range : 24 - 28 mEq/L. The reference range was not used to interpret this result as normal/abnormal . AC VBE(BEAKER) (test mEq/L code = 0366222503) THB WYATT (test code = 11.4 g/dL 12.0-16.0 L 7130967315) %O2HB WYATT (test code = 21.7 % 52.0-63.0 L 8442659272) %COHB WYATT (test code = 0.3 % 0.0-1.5 1887067411) %METHB WYATT (test code = 1.1 % 0.4-1.5 9512550383) VOL%O2 WYATT (test code = 3.5 % 6.0-12.0 L 4981710601) NA (test code = 145 mmol/L 135-145 4727215448) K+ (test code = 4.0 mmol/L 3.5-5.0 8116930635) AC CA IONZ (test code = 5.00 mg/dL 4.50-5.30 6620014293) GLUCOSE (test code = 70 mg/dL 70-110 4462592574) LACTIC ACID (test code 2.81 mmol/L 0.50-2.20 H = 7055294496) Lab Interpretation Abnormal (test code = 66094-0) [facility] WITH [id number] 13:41:47 Test Item Value Reference Range Interpretation Comments WBC (test code = See_Comment [Automated 3490-2) message] The sy stem which generated this result transmitted reference range : 4.30 - 11.10 10*3/?L. The reference range was not used to interpret this result as normal/abnormal . RBC (test code = See_Comment [Automated 349-8) message] The sy stem which generated this [...] RDW-SD (test code = 47.6 fL 39.0-49.9 31283-6) RDW-CV (test code = 15.9 % 12.0-15.5 H 788-0) PLT (test code = See_Comment [Automated 717-3) message] The sy stem which generated this result transmitted reference range : 166 - 358 10*3/ ?L. The reference r nicholas was not used to interpret this result as normal/abnormal . MPV (test code = 10.9 fL 9.5-12.9 41519-7) NRBC/100 WBC (test See_Comment [Automat ed code = 7639154641) message] The system which generated this result transmitted reference range : 0.0 - 10.0 /100 WBCs. The refer ence range was not u sed to interpret th is result as normal/abnormal . NRBC x10^3 (test code <0.01 See_Comment [Auto mated = 0616001517) message] The s ystem which generated this result transmitted reference range : 10*3/?L. The reference range was not used to interpret this result as normal/abnormal . GRAN MAT (NEUT) % 80.7 % (test code = 770-8) IMM GRAN % (test code 0.30 % = 5097128421) LYMPH % (test code = 12.4 % 736-9) MONO % (test code = 4.9 % 5905-5) EOS % (test code = 0.9 % 713-8) BASO % (test code = 0.8 % 706-2) GRAN MAT x10^3(ANC) 6.92 10*3/uL 1.88-7.09 (test code = 4731196943) IMM GRAN x10^3 (test 0.03 10*3/uL 0.00-0.06 code = 2070546589) LYMPH x10^3 (test code 1.06 10*3/uL 1.32-3.29 L = 731-0) MONO x10^3 (test code 0.42 10*3/uL 0.33-0.92 = 742-7) EOS x10^3 (test code = 0.08 10*3/uL 0.03-0.39 711-2) BASO x10^3 (test code 0.07 10*3/uL 0.01-0.07 = 704-7) Lab Interpretation Abnormal (test code = 35361-6) [facility] W/AUTO DIFF WITH [id number] 05:43:21 Test Item Value Reference Range Interpretation [...] RBCS 0.00 K/UL 0.00-0.11 (test code = 86721) HEMOGLOBIN [id number] 05:31:32 Test Item Value Reference Range Interpretation Comments HEMOGLOBIN A1c (test code = 41420) 6.4 % 4.2-5.6 H HEMOGLOBIN [id number] 00:00:00 Test Item Value Reference Range Interpretation Comments HEMOGLOBIN A1c (test code = 22028) 6.4 % HEMOGLOBIN [id number] 00:00:00 Test Item Value Reference Range Interpretation Comments HEMOGLOBIN A1c (test code = 00035) 6.4 % HEMOGLOBIN [id number] 00:00:00 Test Item Value Reference Range Interpretation Comments HEMOGLOBIN A1c (test code = 58887) 6.4 % CBC W/AUTO [id number] 00:00:00 Test Item Value Reference Range Interpretation [...] NUCLEATED RBCS (test code = 0.00 K/UL 58613) CBC W/AUTO [id number] 00:00:00 Test Item Value Reference Range Interpretation [...] NUCLEATED RBCS (test code = 0.00 K/UL 49481) CBC W/AUTO [id number] 00:00:00 Test Item Value Reference Range Interpretation [...] NUCLEATED RBCS (test code = 0.00 K/UL 28826) C-ARM<1 HR W IMAGES*WW*2022-01-05 15:46:44 [facility] : 1970 Sex: FFluoroscopyLocation Code: [id number] HISTORY: SURGICAL PROCEDURE , Back painComments: Fluoroscopy was provided duringsympathetic nerve block. Approximately fluoroscopy time was 32.6 seconds. 3 images were obtained.IMPRESSION: Fluoroscopy services provided. Please see operative report for full details.Electronically signed by: Gabriele Castaneda MD 01/05/2022 3:46 PM CDT [id number] URINE MONOCLONAL *WW*2022-01-05 11:24:00 Test Item Value Reference Range Interpretation Comments PREG UR (test code = PGU) NEGATIVE NEGATIVE CBC WITH [id number] 12:44:09 Test Item Value Reference Range Interpretation Comments WBC (test code = See_Comment H [Automated 4096-2) message] The sy stem which generated this [...] RDW-SD (test code = 49.5 fL 39.0-49.9 60508-7) RDW-CV (test code = 15.5 % 12.0-15.5 788-0) PLT (test code = See_Comment H [Automated 777-3) message] The sy stem which generated this result transmitted reference range : 166 - 358 10*3/ ?L. The reference r nicholas was not used to interpret this result as normal/abnormal . MPV (test code = 10.3 fL 9.5-12.9 09679-2) NRBC/100 WBC (test See_Comment [Automat ed code = 1232760574) message] The system which generated this result transmitted reference range : 0.0 - 10.0 /100 WBCs. The refer ence range was not u sed to interpret th is result as normal/abnormal . NRBC x10^3 (test code See_Comment [Auto mated = 4913124262) message] The s ystem which generated this result transmitted reference range : 10*3/?L. The reference range was not used to interpret this result as normal/abnormal . GRAN MAT (NEUT) % 64.4 % (test code = 770-8) IMM GRAN % (test code 3.60 % = 2050861469) LYMPH % (test code = 23.5 % 736-9) MONO % (test code = 7.3 % 5905-5) EOS % (test code = 0.9 % 713-8) BASO % (test code = 0.3 % 706-2) GRAN MAT x10^3(ANC) 7.19 10*3/uL 1.88-7.09 H (test code = 5663179030) IMM GRAN x10^3 (test 0.40 10*3/uL 0.00-0.06 H code = 0056052444) LYMPH x10^3 (test code 2.63 10*3/uL 1.32-3.29 = 731-0) MONO x10^3 (test code 0.82 10*3/uL 0.33-0.92 = 742-7) EOS x10^3 (test code = 0.10 10*3/uL 0.03-0.39 711-2) BASO x10^3 (test code 0.03 10*3/uL 0.01-0.07 = 704-7) POLYCHROMASIA (test 2+ See_Comment [Automa britney code = 62793-0) message] The system which generated this result [...] . Lab Interpretation Abnormal (test code = 64439-8) [facility] [id number] 10:06:53 Test Item Value Reference Range Interpretation Comments NT-proBNP (test code 117 pg/mL See_Comment [Autom ated = 9782965926) message] The system which generated this result transmitted reference range : <=125. The reference range was not used to interpret this result as normal/abnormal . LUCILLE (test code = LUCILLE) Biotin has been reported to cause a negative bias, interpret results relative to patient's use of biotin. Lab Interpretation Normal (test code = 90461-9) [facility] (09088[facility]2021-[facility]-07 10:02:35 Test Item Value Reference Range Interpretation Comments NA (test code = 140 mmol/L 135-145 0910941287) K (test code = 3.7 mmol/L 3.5-5.0 4036281840) CL (test code = 104 mmol/L 98-108 5220607233) CO2 TOTAL (test code = 31 mmol/L 23-31 8953846436) AGAP (test code = 2-16 7954473526) BUN (test code = 21 mg/dL 7-23 0832664281) GLUCOSE (test code = 91 mg/dL 70-110 9045397618) CREATININE (test code = 1.00 mg/dL 0.50-1.04 5242553155) TOTAL BILI (test code = 0.3 mg/dL 0.1-1.5 8472786712) CALCIUM (test code = 8.1 mg/dL 8.6-10.6 L 8218726605) T PROTEIN (test code = 5.9 g/dL 6.3-8.2 L 5603080665) ALBUMIN (test code = 3.4 g/dL 3.5-5.0 L 3674904971) ALK PHOS (test code = 87 U/L 34-122 4321774632) ALTv (test code = 39 U/L 5-35 H 1741-6) AST(SGOT) (test code = 24 U/L 13-40 1320140440) eGFR (test code = mL/min/1.73m2 7177621121) LUCILLE (test code = LUCILLE) Association of [...] tests). Lab Interpretation Abnormal (test code = 76755-8) [facility] 10:02:35 Test Item Value Reference Range Interpretation Comments MAGNESIUM (test code = 9911451270) 2.2 mg/dL 1.7-2.4 Lab Interpretation (test code = Normal 79555-8) [facility]uda[facility] B12, [id number] 22:18:47 Test Item Value Reference Range Interpretation Comments VIT B12 (test code = 979 pg/mL 240-930 H 5067118528) LUCILLE (test code = LUCILLE) Biotin has been reported to cause a positive bias, interpret results relative to patient's use of biotin. Lab Interpretation (test Abnormal code = 53936-9) [facility]uda[facility]ALCITONIN2022-04-05 21:47:27 Test Item Value Reference Range Interpretation Comments Procalcitonin (test 0.05 ng/mL <0.07 code = 5227414585) LUCILLE (test code = LUCILLE) INTERPRETATION OF [...] lung abscess/empyema. For further information please refer to:[email or web address] Lab Interpretation Normal (test code = 51100-5) [facility] D, [id number] 20:41:30 Test Item Value Reference Range Interpretation Comments VIT D 25OH (test code = <13 25-80 L 38703-1) LUCILLE (test code = LUCILLE) Deficiency: <20 ng/mLInsufficiency: 20-24 ng/mLOptimal: 25-80 ng/mL Lab Interpretation (test Abnormal code = 54308-8) [facility]udaDI CONSULT [id number] 20:04:06 LEUKOCYTOSIS WITH ABSOLUTE NEUTROPHILIA AND INCREASED IMMATURE GRANULOCYTES/LEFT SHIFT, CONSISTENT WITH PATIENT'S KNOWN INFECTION. NORMOCYTIC, NORMOCHROMIC ANEMIA. MILD THROMBOCYTOSIS.[facility] [id number] 18:31:30 Test Item Value Reference Range Interpretation Comments FREE T3 (test code = 7700228215) 2.49 pg/mL 2.77-5.27 L Lab Interpretation (test code = Abnormal 38042-0) [facility]-REACTIVE [id number] 17:54:11 Test Item Value Reference Range Interpretation Comments CRP (test code = 3876247389) 0.2 mg/dL <0.8 Lab Interpretation (test code = Normal 88229-2) [facility] [id number] 13:49:44 Test Item Value Reference Range Interpretation Comments FREE T4 (test code = See_Comment L [Autom ated message] 8217780400) The system [employer] generated this result transmitted ref erence range: 0.78 - 2 .20 ng/dL:. The ref erence range was not u sed to interpret this result as normal/abnor mal. Lab Interpretation (test Abnormal code = 72304-6) [facility] WITH [id number] 12:20:38 Test Item Value Reference Range Interpretation Comments WBC (test code = See_Comment H [Automated 9090-2) message] The system which generated this result transmit britney reference range : 4.30 - 11.10 10*3/?L. The reference range was not used to interpret this result as normal/abnormal . RBC (test code = See_Comment L [Automated 209-8) message] The system which generated this result [...] RDW-SD (test code = 48.5 fL 39.0-49.9 33886-2) RDW-CV (test code = 15.3 % 12.0-15.5 788-0) PLT (test code = See_Comment [Automated 777-3) message] The system which generated this result transmit britney reference range : 166 - 358 10*3/ ?L. The reference range was not u sed to interpret th is result as normal/abnormal . MPV (test code = 10.4 fL 9.5-12.9 59771-4) NRBC/100 WBC (test See_Comment [Automat ed code = 1213221105) message] The system which generated this result transmit britney reference range : 0.0 - 10.0 /100 WBCs. The reference range was not used to interpret this result as normal/abnormal . NRBC x10^3 (test code See_Comment [Auto mated = 3634255051) message] The system which generated this result transmit britney reference range : 10*3/?L. The reference range was not used to interpret this result as normal/abnormal . GRAN MAT (NEUT) % 74.0 % (test code = 770-8) IMM GRAN % (test code 3.20 % = 4005797376) LYMPH % (test code = 14.7 % 736-9) MONO % (test code = 7.7 % 5905-5) EOS % (test code = 0.1 % 713-8) BASO % (test code = 0.3 % 706-2) GRAN MAT x10^3(ANC) 11.18 10*3/uL 1.88-7.09 H (test code = 3065928944) IMM GRAN x10^3 (test 0.48 10*3/uL 0.00-0.06 H code = 3662309522) LYMPH x10^3 (test code 2.22 10*3/uL 1.32-3.29 = 731-0) MONO x10^3 (test code 1.17 10*3/uL 0.33-0.92 H = 742-7) EOS x10^3 (test code = <0.03 0.03-0.39 L 711-2) BASO x10^3 (test code 0.04 10*3/uL 0.01-0.07 = 704-7) Lab Interpretation Abnormal (test code = 51040-2) [facility]udaFERRITIN [id number] 11:45:10 Test Item Value Reference Range Interpretation Comments FERRITIN (test code = 16.1 ng/mL 11.0-264.0 2433613505) LUCILLE (test code = LUCILLE) Biotin has been reported to cause a negative bias, interpret results relative to patient's use of biotin. Lab Interpretation (test Normal code = 80032-5) [facility]udaTHYROID STIMULATING [id number] 11:41:28 Test Item Value Reference Range Interpretation Comments TSH (test code = See_Comment L [Automated message] 4082275627) The system [employer] generated this result transmitted ref erence range: 0.45 - 4 .70 mIU/L. The refe rence range was not u sed to interpret this result as normal/abnor mal. Lab Interpretation (test Abnormal code = 18060-5) [facility] BudaSEDIMENTATION [id number] 11:30:34 Test Item Value Reference Range Interpretation Comments ESR (test code = See_Comment [Automated message] 7982252921) The system [employer] generated this result transmitted ref erence range: 0 - 20 m m/HR. The reference r nicholas was not used to interpret this result as normal/abnor mal. Lab Interpretation (test Normal code = 69511-6) [facility]udaTROPONIN [id number] 11:30:08 Test Item Value Reference Interpretation Comments Range TROPONIN I (test 0.023 ng/mL See_Comment [Automated code = 4805490923) message] The system which generated this result [...] biotin. Lab Interpretation Normal (test code = 71303-5) [facility]. METABOLIC PANEL (41289)2021-12-06 11:28:58 Test Item Value Reference Range Interpretation Comments NA (test code = 140 mmol/L 135-145 2307713310) K (test code = 3.1 mmol/L 3.5-5.0 L 9495253918) CL (test code = 106 mmol/L 98-108 4425170406) CO2 TOTAL (test code = 31 mmol/L 23-31 8800061372) AGAP (test code = 2-16 5633719670) BUN (test code = 24 mg/dL 7-23 H 5373495064) GLUCOSE (test code = 88 mg/dL 70-110 1703684496) CREATININE (test code = 0.95 mg/dL 0.50-1.04 9767733415) TOTAL BILI (test code = 0.3 mg/dL 0.1-1.2 5505493566) CALCIUM (test code = 8.4 mg/dL 8.6-10.6 L 1756481619) T PROTEIN (test code = 5.7 g/dL 6.3-8.2 L 4015539106) ALBUMIN (test code = 3.3 g/dL 3.5-5.0 L 6380158046) ALK PHOS (test code = 83 U/L 34-122 3792971751) ALTv (test code = 44 U/L 5-35 H 1742-6) AST(SGOT) (test code = 27 U/L 13-40 7049698732) eGFR (test code = mL/min/1.73m2 1404361082) LUCILLE (test code = LUCILLE) Association of [...] tests). Lab Interpretation Abnormal (test code = 33879-4) [facility] [id number] 11:26:47 Test Item Value Reference Range Interpretation Comments NT-proBNP (test code 442 pg/mL See_Comment H [Autom ated = 5469153720) message] The system which generated this result transmitted reference range : <=125. The reference range was not used to interpret this result as normal/abnormal . LUCILLE (test code = LUCILLE) Biotin has been reported to cause a negative bias, interpret results relative to patient's use of biotin. Lab Interpretation Abnormal (test code = 60736-5) [facility] [id number] 11:19:22 Test Item Value Reference Range Interpretation Comments IRON (test code = 2535695534) 34 ug/dL 50-160 L TIBC (test code = 4656118623) 408 ug/dL 250-410 % FE SAT (test code = 3844031488) 8 % 20-50 L Lab Interpretation (test code = Abnormal 16422-4) [facility] Test Item Value Reference Range Interpretation Comments MAGNESIUM (test code = 2179001609) 1.9 mg/dL 1.7-2.4 Lab Interpretation (test code = Normal 70087-1) [facility]:02 Test Item Value Reference Range Interpretation Comments PHOSPHORUS (test code = 0874811138) 3.3 mg/dL 2.5-5.0 Lab Interpretation (test code = Normal 74791-9) [facility]udaLIPID PANEL (03209)(TOTAL CHOLESTEROL, TRIGLYCERIDES, HDL)2021-12-06 11:09:41 Test Item Value Reference Range Interpretation Comments CHOL (test code = 208 mg/dL 120-200 H 9245215012) HDL (test code = 99 mg/dL >50 7199270509) HDLC RATIO (test code = See_Comment [Au tomated message] 3074807796) The system [employer] generated this result transmit britney reference range : <=4.5. The refe rence range was not u sed to interpret th is result as normal/abnormal . TRIG (test code = 172 mg/dL 30-170 H 5706162833) LDL CHOL (test code = 75 mg/dL See_Comment [Auto mated message] 29849-2) The system [employer] generated this result transmit britney reference range : <=160. The refe rence range was not u sed to interpret th is result as normal/abnormal . VLDL (test code = 34 mg/dL 5-60 9892448145) Lab Interpretation (test Abnormal code = 58277-7) [facility]udaURIC [id number] 11:09:21 Test Item Value Reference Range Interpretation Comments URIC ACID (test code = 4602016337) 6.1 mg/dL 2.9-6.0 H Lab Interpretation (test code = Abnormal 83866-1) [facility]udaGLYCOSYLATED HEMOGLOBIN (A1C)2021-12-06 08:48:15 Test Item Value Reference Range Interpretation Comments HGB A1C (test code = 5.7 % 4.0-5.7 4548-4) LUCILLE (test code = LUCILLE) Reference RangesNormal: <5.7%Prediabetes: 5.7 - 6.4%Diabetes: > 6.5% Lab Interpretation (test Normal code = 43041-8) [facility] WITH [id number] 01:01:58 Test Item Value Reference Range Interpretation [...] RDW-SD (test code = 46.4 fL 39.0-49.9 71383-4) RDW-CV (test code = 15.2 % 12.0-15.5 788-0) PLT (test code = See_Comment H [Automated 777-3) message] The system which generated this result transmit britney reference range : 166 - 358 10*3/ ?L. The reference range was not u sed to interpret th is result as normal/abnormal . MPV (test code = 10.6 fL 9.5-12.9 02627-4) NRBC/100 WBC (test See_Comment [Automat ed code = 3304278850) message] The system which generated this result transmit britney reference range : 0.0 - 10.0 /100 WBCs. The reference range was not used to interpret this result as normal/abnormal . NRBC x10^3 (test code See_Comment [Auto mated = 6850725532) message] The system which generated this result transmit britney reference range : 10*3/?L. The reference range was not used to interpret this result as normal/abnormal . SEG % (test code = 83 % 33-76 H 50102-4) BAND % (test code = 4 % 0-1 H 44242-8) LYMPH % (test code = 7 % 14-54 L 80534-9) MONO % (test code = 5 % 0-4 H 46032-5) EOS % (test code = 1 % 0-3 12329-7) ANC (test code = 19.01 10*3/uL 1.88-7.09 H 753-4) TOXIC CHANGES (test Present A code = 803-7) Lab Interpretation Abnormal (test code = 99745-8) [facility]udaTROPONIN [id number] 00:45:54 Test Item Value Reference Interpretation Comments Range TROPONIN I (test 0.022 ng/mL See_Comment [Automated code = 4791271839) message] The system which generated this result [...] biotin. Lab Interpretation Normal (test code = 75338-5) [facility]udaN-TERMINAL [id number] 00:42:51 Test Item Value Reference Range Interpretation Comments NT-proBNP (test code 544 pg/mL See_Comment H [Autom ated = 2282568257) message] The system which generated this result transmitted reference range : <=125. The reference range was not used to interpret this result as normal/abnormal . LUCILLE (test code = LUCILLE) Biotin has been reported to cause a negative bias, interpret results relative to patient's use of biotin. Lab Interpretation Abnormal (test code = 19071-4) [facility]udaACTIVATED PARTIAL THRMPLAS [id number] 00:36:33 Test Item Value Reference Range Interpretation Comments APTT Patient (test See_Comment L [Automat ed code = 3173-2) message] The system which generated this result transmitted reference range : 23 - 38 Seconds . The reference range was not used to interpr et this result as normal/abnormal . LUCILLE (test code = LUCILLE) The [facility] patient population mean normal value for aPTT is 30 seconds. Lab Interpretation Abnormal (test code = 14122-6) [facility] BudaPROTHROMBIN TIME / [id number] 00:34:31 Test Item Value Reference Range Interpretation [...] tions. Lab Interpretation (test Normal code = 03434-1) [facility]udaCOMP. METABOLIC PANEL (11654)2021-12-06 00:34:11 Test Item Value Reference Range Interpretation Comments NA (test code = 141 mmol/L 135-145 4449335339) K (test code = 3.9 mmol/L 3.5-5.0 5666472421) CL (test code = 104 mmol/L 98-108 5522132961) CO2 TOTAL (test code = 27 mmol/L 23-31 8449811824) AGAP (test code = 2-16 5197433865) BUN (test code = 24 mg/dL 7-23 H 1220856416) GLUCOSE (test code = 117 mg/dL 70-110 H 6762250904) CREATININE (test code = 0.96 mg/dL 0.50-1.04 2096150306) TOTAL BILI (test code = 0.4 mg/dL 0.1-1.2 9461819857) CALCIUM (test code = 8.9 mg/dL 8.6-10.6 8114219916) T PROTEIN (test code = 6.5 g/dL 6.3-8.2 5912767953) ALBUMIN (test code = 4.0 g/dL 3.5-5.0 6139649646) ALK PHOS (test code = 107 U/L 34-122 4371281332) ALTv (test code = 49 U/L 5-35 H 1742-6) AST(SGOT) (test code = 44 U/L 13-40 H 6877759703) eGFR (test code = mL/min/1.73m2 0860701157) LUCILLE (test code = LUCILLE) Association of [...] tests). Lab Interpretation Abnormal (test code = 34979-7) [facility]udaPROCALCITONIN2022-04-04 02:29:14 Test Item Value Reference Range Interpretation Comments Procalcitonin (test 0.11 ng/mL <0.08 H code = 8128283783) LUCILLE (test code = LUCILLE) INTERPRETATION OF [...] lung abscess/empyema. For further information please refer to:[email or web address] Lab Interpretation Abnormal (test code = 87045-6) [facility] BudaLactic Acid Whole [id number] 15:26:51 Test Item Value Reference Range Interpretation Comments LACTIC ACID (test code = 2.36 mmol/L 0.50-2.20 H 4177196116) Lab Interpretation (test code = Abnormal 49555-8) [facility] BudaCB with [id number] 09:45:08 Test Item Value Reference Range Interpretation [...] RDW-SD (test code = 48.3 fL 39.0-49.9 21027-4) RDW-CV (test code = 15.2 % 12.0-15.5 788-0) PLT (test code = See_Comment [Automated 777-3) message] The system which generated this result transmit britney reference range : 166 - 358 10*3/ ?L. The reference range was not u sed to interpret th is result as normal/abnormal . MPV (test code = 10.3 fL 9.5-12.9 35228-3) NRBC/100 WBC (test See_Comment [Automat ed code = 5817139760) message] The system which generated this result transmit britney reference range : 0.0 - 10.0 /100 WBCs. The reference range was not used to interpret this result as normal/abnormal . NRBC x10^3 (test code See_Comment [Auto mated = 5418773033) message] The system which generated this result transmit britney reference range : 10*3/?L. The reference range was not used to interpret this result as normal/abnormal . GRAN MAT (NEUT) % 90.3 % (test code = 770-8) IMM GRAN % (test code 1.20 % = 0101040960) LYMPH % (test code = 5.8 % 736-9) MONO % (test code = 2.6 % 5905-5) EOS % (test code = 0.0 % 713-8) BASO % (test code = 0.1 % 706-2) GRAN MAT x10^3(ANC) 19.89 10*3/uL 1.88-7.09 H (test code = 3152140318) IMM GRAN x10^3 (test 0.27 10*3/uL 0.00-0.06 H code = 4736173137) LYMPH x10^3 (test code 1.28 10*3/uL 1.32-3.29 L = 731-0) MONO x10^3 (test code 0.57 10*3/uL 0.33-0.92 = 742-7) EOS x10^3 (test code = <0.03 0.03-0.39 L 711-2) BASO x10^3 (test code 0.03 10*3/uL 0.01-0.07 = 704-7) POLYCHROMASIA (test 2+ See_Comment [Automa britney code = 75169-0) message] The system which generated this result transmit britney reference range : 2+. The referen ce range was not u sed to interpret th is result as normal/abnormal . TOXIC CHANGES (test Present A code = 803-7) Lab Interpretation Abnormal (test code = 49291-7) [facility] Metabolic Panel (NA, K, CL, CO2, GLUCOSE, BUN, CREATININE, CA)2021-12-04 09:38:00 Test Item Value Reference Range Interpretation Comments NA (test code = 137 mmol/L 135-145 0774093335) K (test code = 3.7 mmol/L 3.5-5.0 9742027833) CL (test code = 107 mmol/L 98-108 1421337007) CO2 TOTAL (test code = 21 mmol/L 23-31 L 8107803353) AGAP (test code = 2-16 5632232651) BUN (test code = 19 mg/dL 7-23 1920798047) GLUCOSE (test code = 149 mg/dL 70-110 H 6931205063) CREATININE (test code = 1.00 mg/dL 0.50-1.04 6903578311) CALCIUM (test code = 8.8 mg/dL 8.6-10.6 9625949628) eGFR (test code = mL/min/1.73m2 7969888842) LUCILLE (test code = LUCILLE) Association of [...] tests). Lab Interpretation Abnormal (test code = 57733-1) [facility] BudaLactic Acid Whole [id number] 09:20:11 Test Item Value Reference Range Interpretation Comments LACTIC ACID (test code = 3.77 mmol/L 0.50-2.20 H 5209539387) Lab Interpretation (test code = Abnormal 67614-5) [facility] BudaURINALYSIS2022-04-02 23:35:41 Test Item Value Reference Range Interpretation Comments APPEARANCE (test code = Clear Clear 0084156015) COLOR (test code = Yellow Yellow 3262063894) PH (test code = 4.8-8.0 6100998303) SP GRAVITY (test code = 1.003-1.030 7184167088) GLU U QUAL (test code = Normal Normal 9546154389) BLOOD (test code = Negative Negative Interfere nce from 9766399690) ascorbic acid m ay cause false neg ative results. KETONES (test code = Negative Negative 8979678520) PROTEIN (test code = Negative Negative 2887-8) UROBILIN (test code = Normal Normal 7335167448) BILIRUBIN (test code = Negative Negative 5590532980) NITRITE (test code = Negative Negative 3335242202) [place] (test code = Negative Negative 5056186075) RBC/HPF (test code = See_Comment [Autom ated message] 4516782244) The system [employer] generated this result transmitted ref erence range: 0 - 3 HP F. The reference range was not used to int erpret this result as normal/abnormal . WBC/HPF (test code = See_Comment [Autom ated message] 3493831575) The system [employer] generated this result transmitted ref erence range: 0 - 5 HP F. The reference range was not used to int erpret this result as normal/abnormal . BACTERIA (test code = Negative Negative 5729622907) SQ EPITH (test code = See_Comment H [Auto mated message] 0068916330) The system ic [employer] generated this result transmitted ref erence range: <=2 HPF. The reference range was not used to int erpret this result as normal/abnormal . Lab Interpretation (test Abnormal code = 18013-1) [facility] WITH [id number] 21:54:52 Test Item Value Reference Range Interpretation [...] RDW-SD (test code = 48.1 fL 39.0-49.9 40537-9) RDW-CV (test code = 15.3 % 12.0-15.5 788-0) PLT (test code = See_Comment [Automated 777-3) message] The system which generated this result transmit britney reference range : 166 - 358 10*3/ ?L. The reference range was not u sed to interpret th is result as normal/abnormal . MPV (test code = 10.1 fL 9.5-12.9 78049-4) NRBC/100 WBC (test See_Comment [Automat ed code = 7623592480) message] The system which generated this result transmit britney reference range : 0.0 - 10.0 /100 WBCs. The reference range was not used to interpret this result as normal/abnormal . NRBC x10^3 (test code See_Comment [Auto mated = 6091377297) message] The system which generated this result transmit britney reference range : 10*3/?L. The reference range was not used to interpret this result as normal/abnormal . GRAN MAT (NEUT) % 90.9 % (test code = 770-8) IMM GRAN % (test code 0.80 % = 7858237980) LYMPH % (test code = 6.4 % 736-9) MONO % (test code = 1.8 % 5905-5) EOS % (test code = 0.0 % 713-8) BASO % (test code = 0.1 % 706-2) GRAN MAT x10^3(ANC) 17.07 10*3/uL 1.88-7.09 H (test code = 3619755226) IMM GRAN x10^3 (test 0.15 10*3/uL 0.00-0.06 H code = 1656614209) LYMPH x10^3 (test code 1.20 10*3/uL 1.32-3.29 L = 731-0) MONO x10^3 (test code 0.34 10*3/uL 0.33-0.92 = 742-7) EOS x10^3 (test code = <0.03 0.03-0.39 L 711-2) BASO x10^3 (test code <0.03 0.01-0.07 = 704-7) TOXIC CHANGES (test Present A code = 803-7) Lab Interpretation Abnormal (test code = 03243-5) [facility]udaN-TERMINAL [id number] 21:47:46 Test Item Value Reference Range Interpretation Comments NT-proBNP (test code 662 pg/mL See_Comment H [Autom ated = 0748549546) message] The system which generated this result transmitted reference range : <=125. The reference range was not used to interpret this result as normal/abnormal . LUCILLE (test code = LUCILLE) Biotin has been reported to cause a negative bias, interpret results relative to patient's use of biotin. Lab Interpretation Abnormal (test code = 51690-5) [facility] BudaTROPONIN [id number] 21:47:46 Test Item Value Reference Interpretation Comments Range TROPONIN I (test 0.007 ng/mL See_Comment [Automated code = 0514897877) message] The system which generated this result [...] biotin. Lab Interpretation Normal (test code = 12525-6) [facility] BudaAMYLASE2022-04-02 21:36:08 Test Item Value Reference Range Interpretation Comments KIERA (test code = 2902710672) 66 U/L 35-110 Lab Interpretation (test code = Normal 72995-3) [facility] BudaLIPASE2022-04-02 21:36:08 Test Item Value Reference Range Interpretation Comments LIPASE (test code = 7194610885) 83 U/L 0-220 Lab Interpretation (test code = Normal 38677-8) [facility] BudaCOMP. METABOLIC PANEL (79563)2021-12-03 21:36:08 Test Item Value Reference Range Interpretation Comments NA (test code = 137 mmol/L 135-145 1914586334) K (test code = 4.5 mmol/L 3.5-5.0 3504047400) CL (test code = 107 mmol/L 98-108 7075050284) CO2 TOTAL (test code = 20 mmol/L 23-31 L 9217060222) AGAP (test code = 2-16 1468954284) BUN (test code = 20 mg/dL 7-23 3911014792) GLUCOSE (test code = 140 mg/dL 70-110 H 1172262385) CREATININE (test code = 0.97 mg/dL 0.50-1.04 2597884264) TOTAL BILI (test code = 0.3 mg/dL 0.1-1.8 7404390212) CALCIUM (test code = 8.9 mg/dL 8.6-10.6 3573132316) T PROTEIN (test code = 7.1 g/dL 6.3-8.2 7037141805) ALBUMIN (test code = 4.3 g/dL 3.5-5.0 0221714528) ALK PHOS (test code = 97 U/L 34-122 3861026970) ALTv (test code = 56 U/L 5-35 H 1742-6) AST(SGOT) (test code = 38 U/L 13-40 7765449168) eGFR (test code = mL/min/1.73m2 5439668247) LUCILLE (test code = LUCILLE) Association of [...] tests). Lab Interpretation Abnormal (test code = 28579-9) [facility] BudaAC ABG + LACTIC [id number] 21:21:29 Test Item Value Reference Range Interpretation Comments PH (test code = 2) 7.35-7.45 PCO2 (test code = See_Comment L [Automate d 1474843441) message] The sy stem which generated this result transmitted reference range : 35 - 45 mmHg. The reference range was not used to interpret this result as normal/abnormal . PO2 (test code = See_Comment [Automated 1491991842) message] The sy stem which generated this result transmitted reference range : 80 - 100 mmHg. The reference range was not used to interpret this result as normal/abnormal . HCO3 (test code = See_Comment [Automate d 7904706025) message] The sy stem which generated this result transmitted reference range : 22 - 26 mEq/L. The reference range was not used to interpret this result as normal/abnormal . BE (test code = See_Comment [Automated 2476627321) message] The sy stem which generated this result transmitted reference range : -3.0 - 3.0 mEq/ L. The reference r nicholas was not used to interpret this result as normal/abnormal . LACTIC ACID (test code 2.96 mmol/L 0.50-2.20 H = 9524200226) Lab Interpretation Abnormal (test code = 70875-5) [facility] Metabolic Panel (NA, K, CL, CO2, GLUCOSE, BUN, CREATININE, CA)2021-11-10 09:40:55 Test Item Value Reference Range Interpretation Comments NA (test code = 138 mmol/L 135-145 4928658852) K (test code = 3.4 mmol/L 3.5-5.0 L 2602058531) CL (test code = 107 mmol/L 98-108 7960179124) CO2 TOTAL (test code = 25 mmol/L 23-31 3262570357) AGAP (test code = 2-16 9971384880) BUN (test code = 15 mg/dL 7-23 8199650246) GLUCOSE (test code = 110 mg/dL 70-110 4472603927) CREATININE (test code = 0.81 mg/dL 0.50-1.04 8447095552) CALCIUM (test code = 7.8 mg/dL 8.6-10.6 L 8240509954) eGFR (test code = mL/min/1.73m2 9393946900) LUCILLE (test code = LUCILLE) Association of [...] tests). Lab Interpretation Abnormal (test code = 15552-1) [facility] with Qcoupzjppejk2680-21-20 09:25:30 Test Item Value Reference Range Interpretation Comments WBC (test code = See_Comment H [Automated 1537-2) message] The sy stem which generated this result transmitted reference range : 4.30 - 11.10 10*3/?L. The reference range was not used to interpret this result as normal/abnormal . RBC (test code = See_Comment L [Automated 979-8) message] The sy stem which generated this [...] (test code = 57.2 fL 39.0-49.9 H 78627-1) RDW-CV (test code = 17.0 % 12.0-15.5 H 788-0) PLT (test code = See_Comment [Automated 777-3) message] The sy stem which generated this result transmitted reference range : 166 - 358 10*3/ ?L. The reference r nicholas was not used to interpret this result as normal/abnormal . MPV (test code = 9.2 fL 9.5-12.9 L 01402-8) NRBC/100 WBC (test See_Comment [Automat ed code = 2498739693) message] The system which generated this result transmitted reference range : 0.0 - 10.0 /100 WBCs. The refer ence range was not u sed to interpret th is result as normal/abnormal . NRBC x10^3 (test code See_Comment [Auto mated = 1976973627) message] The s ystem which generated this result transmitted reference range : 10*3/?L. The reference range was not used to interpret this result as normal/abnormal . GRAN MAT (NEUT) % 72.2 % (test code = 770-8) IMM GRAN % (test code 1.30 % = 9753740438) LYMPH % (test code = 18.9 % 736-9) MONO % (test code = 6.3 % 5905-5) EOS % (test code = 1.2 % 713-8) BASO % (test code = 0.1 % 706-2) GRAN MAT x10^3(ANC) 8.06 10*3/uL 1.88-7.09 H (test code = 7338898838) IMM GRAN x10^3 (test 0.14 10*3/uL 0.00-0.06 H code = 3760676628) LYMPH x10^3 (test code 2.10 10*3/uL 1.32-3.29 = 731-0) MONO x10^3 (test code 0.70 10*3/uL 0.33-0.92 = 742-7) EOS x10^3 (test code = 0.13 10*3/uL 0.03-0.39 711-2) BASO x10^3 (test code <0.03 0.01-0.07 = 704-7) Lab Interpretation Abnormal (test code = 28696-2) [facility] BudaLactic Acid Whole [id number] 09:22:39 Test Item Value Reference Range Interpretation Comments LACTIC ACID (test code = 3.32 mmol/L 0.50-2.20 H 3873066721) Lab Interpretation (test code = Abnormal 99807-9) [facility] BudaACTIVATED PARTIAL THRMPLAS [id number] 02:13:42 Test Item Value Reference Range Interpretation Comments APTT Patient (test code See_Comment L [Au tomated message] = 3173-2) The system [employer] generated this result transmitted ref erence range: 26 - 36 Seconds. The reference range was not used to int erpret this result as normal/abnormal . Lab Interpretation (test Abnormal code = 10882-4) [facility] BudaPROTHROMBIN TIME / [id number] 02:13:42 Test Item Value Reference Range Interpretation Comments PROTIME PATIENT (test See_Comment [Auto mated message] code = 5964-2) The system [facility] generated this result transmitted ref erence range: 10.1 - 1 2.6 Seconds. The re ference range was not u sed to interpret this result as normal/abnor mal. INR (test code = 6301-6) Nor mal INR <1.1; Warfarin Therap eutic range 2.0 to 3. 0 or 2.5 to 3.5, dep ending upon the indica tions. Lab Interpretation (test Normal code = 60735-7) [facility] BudaD-[id number] 02:13:42 Test Item Value Reference Interpretation Comments Range D-DIMER (test code = See_Comment H [Autom ated 0989622630) message] The system which generated this result [...] diagnosis. Lab Interpretation Abnormal (test code = 55565-6) [facility]. METABOLIC PANEL (02945)2021-11-10 01:57:17 Test Item Value Reference Range Interpretation Comments NA (test code = 139 mmol/L 135-145 0095192930) K (test code = 3.9 mmol/L 3.5-5.0 5833696747) CL (test code = 106 mmol/L 98-108 9134237268) CO2 TOTAL (test code = 27 mmol/L 23-31 0450029418) AGAP (test code = 2-16 6929925755) BUN (test code = 17 mg/dL 7-23 9379304735) GLUCOSE (test code = 135 mg/dL 70-110 H 4608743506) CREATININE (test code = 0.72 mg/dL 0.50-1.04 0541667760) TOTAL BILI (test code = 0.3 mg/dL 0.1-1.6 7096996976) CALCIUM (test code = 8.1 mg/dL 8.6-10.6 L 8036861022) T PROTEIN (test code = 5.6 g/dL 6.3-8.2 L 0133944645) ALBUMIN (test code = 3.3 g/dL 3.5-5.0 L 2139269921) ALK PHOS (test code = 126 U/L 34-122 H 5124948162) ALTv (test code = 47 U/L 5-35 H 1742-6) AST(SGOT) (test code = 27 U/L 13-40 4831953218) eGFR (test code = mL/min/1.73m2 5667301946) LUCILLE (test code = LUCILLE) Association of [...] tests). Lab Interpretation Abnormal (test code = 23118-6) [facility] + LACTIC [id number] 01:51:44 Test Item Value Reference Range Interpretation Comments PH (test code = 2) 7.35-7.45 PCO2 (test code = See_Comment [Automate d 2305962069) message] The sy stem which generated this result transmitted reference range : 35 - 45 mmHg. The reference range was not used to interpret this result as normal/abnormal . PO2 (test code = See_Comment L [Automated 8689843100) message] The sy stem which generated this result transmitted reference range : 80 - 100 mmHg. The reference range was not used to interpret this result as normal/abnormal . HCO3 (test code = See_Comment [Automate d 1987386238) message] The sy stem which generated this result transmitted reference range : 22 - 26 mEq/L. The reference range was not used to interpret this result as normal/abnormal . BE (test code = See_Comment [Automated 7631052906) message] The sy stem which generated this result transmitted reference range : -3.0 - 3.0 mEq/ L. The reference r nicholas was not used to interpret this result as normal/abnormal . LACTIC ACID (test code 4.25 mmol/L 0.50-2.20 H QUES = 1644319368) Lab Interpretation Abnormal (test code = 98141-5) [facility] WITH [id number] 01:50:58 Test Item Value Reference Range Interpretation [...] (test code = 55.7 fL 39.0-49.9 H 80764-1) RDW-CV (test code = 16.8 % 12.0-15.5 H 788-0) PLT (test code = See_Comment [Automated 777-3) message] The system which generated this result transmit britney reference range : 166 - 358 10*3/ ?L. The reference range was not u sed to interpret th is result as normal/abnormal . MPV (test code = 9.5 fL 9.5-12.9 07366-8) NRBC/100 WBC (test See_Comment [Automat ed code = 2892951988) message] The system which generated this result transmit britney reference range : 0.0 - 10.0 /100 WBCs. The reference range was not used to interpret this result as normal/abnormal . NRBC x10^3 (test code <0.01 See_Comment [Auto mated = 2258714953) message] The system which generated this result transmit britney reference range : 10*3/?L. The reference range was not used to interpret this result as normal/abnormal . GRAN MAT (NEUT) % 84.7 % (test code = 770-8) IMM GRAN % (test code 0.80 % = 6533876254) LYMPH % (test code = 10.9 % 736-9) MONO % (test code = 3.4 % 5905-5) EOS % (test code = 0.1 % 713-8) BASO % (test code = 0.1 % 706-2) GRAN MAT x10^3(ANC) 11.84 10*3/uL 1.88-7.09 H (test code = 2174390942) IMM GRAN x10^3 (test 0.11 10*3/uL 0.00-0.06 H code = 5745758622) LYMPH x10^3 (test code 1.52 10*3/uL 1.32-3.29 = 731-0) MONO x10^3 (test code 0.47 10*3/uL 0.33-0.92 = 742-7) EOS x10^3 (test code = <0.03 0.03-0.39 L 711-2) BASO x10^3 (test code <0.03 0.01-0.07 = 704-7) Lab Interpretation Abnormal (test code = 86405-4) [facility] [id number] 21:38:57 Test Item Value Reference Range Interpretation Comments Case Report (test Non-Gynecologic Cytology code = 4836466934) ?Case: [id number] ?Authorizing Provider: ?Anaya Guallpa MD ? ? Collected: ? 10/21/2021 1249 ?Ordering Location: ? ? [facility] ?Received: ?10/21/2021 1257 ? Medicine/Surgery [facility] 7B ?Pathologist: ? Glenna Alejandra MD ? Specimen: ? ?LUNG, LEFT UPPER LOBE, BRONCHOALVEOLAR LAVAGE ? Final Diagnosis (test a7aubSCoNKZyp2tiKOLfcJOf code = [id number]) ZzEwMzNcZnRuYmpcdWMxIHtc cnRmMVxlcGljOTYwMVxhbnNp HQMdkLFsF1FtdpjbHXaxHZ5u SK5omHsacPJuuKVfAZZmJtNv k6hkb876lCLfg2leFVQZdhpo pRv7kEaaT97tl3Q6CoxxZ0dm ZWQwXGdyZWVuMFxibHVlMDt9 XHBhcGVydzEyMjQwXHBhcGVy vJQ8MVEvVY9njzqmDVmePJko BPXnzkL0IHYwjNDcP7XeJAGv BM2owlhlLAP6HDaiFZLcTZL2 OqUpURSzf5Prwyr8ZeIlrTZm ZFxwbGFpblxmczIwXHBhclxi IEExLiAgTFVORywgTEVGVCBV NCPKSzBGI9WMUoCUYt0EY4iU RJeRQT1EOOIeNHFFPJgRDomj KKXzBvJaDDJbVwpoSwHcMs2s SSSRBJsRKG2PIEJSKXlWZWtG ZD6UYDJLQOGyZXniRNKaW3MW IHARNX3PAlTlDMYwqwqcMpTl pZJyjLzarnKtDVluf4KgA8Wj MjAwMFxhbnNpXGRlZmxhbmcx FBXmWZJ9ltSgEHKiAUetEAOh TOxzEu7zcQAvrVpwLsWiLJFv w6oofpBZCPzhCiZaA655GRGy ITguv3bva5PlKTIboTNad9W6 RTDUnpwvuBi4c2ceTxFcBlF7 mJBoTPpmJ4mrijBmxLCfH3In nBCgrQb7xYppM34pv0W6Dozv O4dcRAVnYWYaK9BrBO4kCNIj Ahg1JBC3XMN1KEFqAQIaX8Xz EY6sXPJdwZGfFZe7s4jffKmm HQSoHDJ2f3isXQrldzA7MM5u zn8itFz4i6qghkMiRWQoJXRi eGAEXDZjI0CkrZouJa8ceEb8 yJahSsbrFSI7Vqh3EV5nwp79 vpf3vXtzPMInpkrqYlE9AWnr ULFujhurHKo8ESjeIEUilGI4 QNMooORcB1IqVUOcVF8pnsq6 CTM2RWjyRANdDtB6KCCyrAVh LCShqOhwDQvay794BXB6PzTj AT2tD1Wwj2D1eZ1owSKtJTLu xYIsXoHkGBSsud5wyRQzKSpu d5AkDET0hhA2xPZhdGHkJSGy UI53Xanqe5SkOzmiFQY1GOFv dtAgs5Udf0hfOkNxjxVlS0bz J3XxHEFgXHTcHRMoWqWmccWh a1Dmy7ZamAKcqUf3y5oiGZGq SXHafKsjm7eqBYX5BCXnP0T7 vVWbz0aqNVoqEHFlsWI4eeD8 GSWiwXQlU2RgfK2dNLAtOI7j lfc4r8lrTLV6MMyvPIYwMbH2 shX5QDXqtPQgQXIquDkkZNlr d612HDY7EyCrQPVei4JjD5Rc vZshK81irVmmY82eORYlaYqq eM0mhEdwrM2nFwRkJxTtKMqh bFxwbGFpblxmMVxmczIwXGxh enjjRTZyUAbuE5cwTaSoDZPx kVixWJhag1BeWWVaMEXoNken czIwXHBhciBJIGhhdmUgcGVy z97zOPwtgWGjQKUxKGenXVJf nWbey7DyV4foOF7aG3CyjAAu deFazwHxHBcpMYLlw1g9uTRt fCymg3ZfeAQsLH53kcYbERZm MLE1IQCdv2roNG48utymHzEy pH83nsMwoyPiVSGzh7kyC2uf qHYwy8Cbd6QuzmVhQKbwc3Bp XE6cgBGbhkqdzNL0SEJvpYJj zgPvfzI8aSloAZFigM9vlH1c iOvvfA2fBzZaHjYwKVmaEK8i BQPhZ0xdwDPwXKQmYCKfI5dl JgVtlK9mqUlbDpzjymB9CIPw cn19 Final Diagnosis f0bijZXcPJQhnCR1TiWgVLFo Comment (test code = e8ozr1IyzMJfiBGdVZzyrMCi [id number]) gfOxga23qJI9oP52IX0uVKRu KxV7UGJimpF9Tls9LVHaYFLv uQHtN391e6jua0bnmuRibBR0 XIFjZEEqT8JrQD3sNBDqfRDu A99hdTSbHJU3AWEyEOLyqTZa ZGXkWPZ1SIYjbORdL6deHZTp PD4wpgaaCVdgXSwxOILsgZG5 JNAkcUOxI4FbDOJrVWujKDHs tem4EsRgGz4rwQLwpJevMGia EDJnFLSzVGclVMMiRjBwP29u LIFbTBQpq5owwZ5tkWw4PVWn l67mqL4yNWHczXgzqObfhVXn ACxvukGokeMuFqR9LTZtndKa aSUuVR2uS8CzjRftB4NxOmOS IJAlRDqll9NmSE5bISQ6kLKz UiNilvT7nB1moHNmuyAyQHKu QuFjJ2WaRW3zQT3trUvtzaOv dCBjZWxscyBpZGVudGlmaWVk XozwGQThY3GrUHRxta7= Clinical Information 1. Pneumonia / covid / (test code = SARS 7161967328) Gross Description g5graMWbVNIpbZX8EvKaKNDd (test code = o3vsr1TtqVBxoFOhCEdakQEt 1248622112) ltEpyn34nDY8uO28PN3uGGTd QpA6YTBenwD9Tnt9NUYqPIWm wWKsU005f7fql2ohcmFduTZ2 QHSlLQQmS2CdAB7qFLHpbVOx T29dfFUzZQS3XGApMYTugVYv VVFtNOZ7KRWhrYRvI4wkRMVc AO7rktseTMoaBMndKUPjvWE8 KYFxpMFjA9TdNIVfMHzaRNBb skg0TyJfGm0zqWDxdDyoMRpq XVLyl8zsJLKwwIEaOBB8HAhv lCIrBZDsLKLqICw1AMHjPYxm zFApJD9zsLcgAbmwaErjq4Ic dCBcXGlkIDUxMDAyIFxcZGIg C8QILNZoFsDnYyw1QMYoTTy7 VLo2BN3CZiYkTYFqYif8QERs GeCgEEp5UDpaPV9QOAE0PnI4 XQZpQyqyFJUkLwDcLWq2BHVh XFxmbCBcXGYgQXJpYWwgXFxm qyXkEBNwRQ4ekNvyxXVbnqtw czIwXHBhclxmczIyXHBhciBB EJ4fYCeEHiydHBmTYjPhLMAQ NIZhDZ5CMUsnBcJVHlPBA3UC VkVPTEFSIExBVkFHRVxwYXJc VdTgZFkcZiJjMrTcXQr7YLFq WfTjz4chlAHwJ2UpiiEmNAGl sVYcISF5KQWqQ0Rzd3XqR2us CNTgYxo7zHOxdbYqSZi4IDEu QbDgt3ofoYBkYGUxVVSrdcXi IOEhh8bgAVErSYzYsKMpk4Qg htVerlHaXGUtlOlrnsK9SRCx Xv1vPF9wm1RmwCOgzuUeKAUB EOSatcrsc0qzr4Pha0WxpM3j ZClcZnMyMlxjZjAgIHtcZXBp R4NzF7IwjqV5a8hhlQair6Ew qIYwLM1atEDjpU== Disclaimer (test code d5subIRlBZYmd0zeVNQtlXPz = [id number]) ZzEwMzNcZnRuYmpcdWMxIHtc igXsLWwlz6HcK3CrRaZwKCdg bnNpXGRlZmxhbmcxMDMzXGZ0 ndLgHDQxFEjpVRDyLQkeZb4a eAYgzWzlXlBzKWTkk6lswiUS PRubEjQfT759OXOiVEfai0rd e5QqUGBwmXRsn4S6MHMYlboe cKx0dKutS80xx7G3KcumG8tc VQXgFFQxR2EaIT2uKWIwImb5 IHL9FVO1YGKqGVZrA0GcYZ1m GBMftQEtSZc0r0ajbOkpXSQg WRD3q0wrHRqpttQuAD2kvn6h fTj8r1tdehByKRPwPGHlySCQ YARqZ7ZkpKqtOf8ziJh8zLmu AumsYIW8Ljr9WX8wqk64oze1 wWluWXRzkumdQuD5OIwwPGYg heqlUPh2UNlqWVYknHX6VJKf jSHnY8LsMDNyMA9zflh5NSV0 LVvbRRZrDuX9HOCqiWEsJPDs sPbuQHksj532SJX3VwKmYA7c K3Mew6N3eI3tzBSaFKPioAZg EgHyXWBano0owJYgKKvey4Zi ZEJ5vuH2tFNrxGJgNGZcZW08 Xfkvw5BlNovsx6OmM62ipEG2 YKkqq3peWJ8rDaK1xyVeRApz k8tdkS3bOdQ1TTqwUC6pPA5u FIQbdF3dpsuhTFDlGgNsbeot QSOifZhhspXeJg8byWtqLAW6 EDleG6gyqM6gWwK9JHneR6uh lK1rPHh7RHaefBM1DMCagK9w JL1qfxspb1ezAYruLXueOYNr gyG5dwU6JVRrrWFnV7CjgR1k KFJaRJ7xgdldj0cgICG8EGhk TVAuLES1IwPcOKWwo2Nfhrg9 ArIoa8UqcFHwKVvyX66rd952 NUMyjeKaM1pibRCuotdszMUe ryztWAzxwaO5KHPqmoBkw5Qu NICzOWP3ORucSLsmzJEqRUVv aQyoh8ijA7XbfWDoWCCtXCgk XGYxXGZzMjBcbGFuZzEwMzNc aGljaFxmMVxkYmNoXGYxXGxv H8icSuUbW5OzLUApDmWbnKDd Y3ngQDeppcRcNKJleoBitML7 RLjhI7x3ZPWrdgPdlQl9kiAl NaJbQAKpFEL6NHathVArBVGh s7DbhubbbBZeXh3hvNMsGLJj vY7iZFKfKVJxEPgxGY5jzOr6 GTGPoCYrnVUuBxLIHDPqXB50 grDlTBQWbrnmo7B7STuwRTJs d6WblRReV1nqz9ZlUCQjj72a VG4ca3G4a2akRFO6NT2zg1Lp IRAesAMkgHAyONEck4Yvrjod z4TyXABfidHsp9UyOPHnfcHn mWCmWABukiHsjt4acbYrRWLn VKDvK4AkhfgcaKgqvtVzIBHm yk8tftQkDFZ0OTPQRXVhUJEh a8TebW5lgZYOKQZ7yQYtoz6i ppJCmZLfLJHmco32PJDzNV8m C9ioMVFoUAOkplGqnFSwz1Ug LSLdvKU8lODsRA6MTjXXq60o IGFuZCBEcnVnIEFkbWluaXN0 orX4cZ3eDXqLOBAsLja+IFRo PRCZAZBzYH1etwJno7IepaNq mFsgGMBlcFSht1XeqQBty9Hv yLqop6JiuBApvDZjYU2rOQIs clxwYXIgVVRNQiBMYWJvcmF0 q9OoFTTjPQYbVLE3hXpghrq4 XIMcoL2dGMEgM7rapgljAPju XTXxo4IuqR8nwJDXgOVia3Zy hNJfdBOIlMDhAH7cfvDsHFjY VDcZBKS7bqViZHTsc7QsZUfy T4zlN93jhCidiVu5dUI6YBP2 jS2bBza+IFxwYXJccGFyIEFw jIXfwZMxHYBiuCbquiYxZ2Jl yrWdaQ7soSXdaaWpBQ2mOJ1f Y3F6xZJhBOCzitIix7pyOBmt dmUgYmVlbiByZXZpZXdlZCBm r3FzAGolNPW1OLjllhUajuRa dWRpbmcgSCZFLCBTcGVjaWFs QHW4TPgoefUqgcBiJH2xyY4c kHarrC9dbIHbnEI3birwZIBh JICwaGkiKHXrUV0oyVLyBPCm qbWHwRficHDorU1nK2WsQOSv RBKshu3jHOTssM7aAUnds5Se zhdmENUiIKSsDZSjksIlyf4h FFCwdCNKRZ2BREylnIOlq1Vc ciIwC4uYAFA9BAXoSrVkRjho UBXxgEJrsWOfYTTqdl06FVSp gA9elGfiKVSxnN4aiH7jhUoj sD0cQoEzGnUhFNfwDF5nXPGg O8loiSMlUTYzZRBsK9lwPzJs vH2tfPvuPPowRfNxIiQhZBae YXJ9fQ== Embedded Images (test code = 1130905154) [facility] [id number] 20:07:20 Test Item Value Reference Range Interpretation Comments SHIRA (test code = Negative Negative 6541138346) LUCILLE (test code = LUCILLE) Negative - [...] separately. Lab Interpretation (test Normal code = 66035-5) [facility] METABOLIC PANEL (NA, K, CL, CO2, GLUCOSE, BUN, CREATININE, CA)2021-10-24 13:05:02 Test Item Value Reference Range Interpretation Comments NA (test code = 134 mmol/L 135-145 L 2072004872) K (test code = 4.5 mmol/L 3.5-5.0 3879021183) CL (test code = 99 mmol/L 98-108 7763237565) CO2 TOTAL (test code = 30 mmol/L 23-31 2240116193) AGAP (test code = 2-16 9436480362) BUN (test code = 23 mg/dL 7-23 4251966120) GLUCOSE (test code = 118 mg/dL 70-110 H 3042538774) CREATININE (test code = 0.71 mg/dL 0.50-1.04 3965228218) CALCIUM (test code = 8.2 mg/dL 8.6-10.6 L 6682780705) eGFR (test code = mL/min/1.73m2 6660437457) LUCILLE (test code = LUCILLE) Association of [...] tests). Lab Interpretation Abnormal (test code = 99650-7) [facility] METABOLIC PANEL (NA, K, CL, CO2, GLUCOSE, BUN, CREATININE, CA)2021-10-24 13:05:02 Test Item Value Reference Range Interpretation Comments NA (test code = 134 mmol/L 135-145 L 7292111574) K (test code = 4.5 mmol/L 3.5-5.0 2473259491) CL (test code = 99 mmol/L 98-108 8071129848) CO2 TOTAL (test code = 30 mmol/L 23-31 1689802059) AGAP (test code = 2-16 0054648972) BUN (test code = 23 mg/dL 7-23 4313051206) GLUCOSE (test code = 118 mg/dL 70-110 H 7591594843) CREATININE (test code = 0.71 mg/dL 0.50-1.04 5303357595) CALCIUM (test code = 8.2 mg/dL 8.6-10.6 L 8389855671) eGFR (test code = mL/min/1.73m2 5554100378) LUCILLE (test code = LUCILLE) Association of [...] tests). Lab Interpretation Abnormal (test code = 41554-0) [facility] WITHOUT [id number] 12:51:39 Test Item Value Reference Range Interpretation Comments WBC (test code = 6690-2) See_Comment H [A utomated message] The system [employer] generated this result transmit britney reference range : 4.30 - 11.10 10*3/?L. The reference range was not used to interpret this result as normal/abnormal . RBC (test code = 789-8) See_Comment [Au tomated message] The system [employer] generated this result transmit britney reference range [...] See_Comment H [Au tomated message] The system [employer] generated this result transmit britney reference range : 166 - 358 10*3/?L. The reference range was not used to interpret this result as normal/abnormal . MPV (test code = 10.1 fL 9.5-12.9 03483-9) RDW-CV (test code = 14.2 % 12.0-15.5 788-0) RDW-SD (test code = 43.8 fL 39.0-49.9 85063-4) NRBC x10^3 (test code = See_Comment [Au tomated message] 4004402140) The system [employer] generated this result transmit britney reference range : 10*3/?L. The reference range was not used to interpret this result as normal/abnormal . NRBC/100 WBC (test code See_Comment [Au tomated message] = 3097996924) The system [facility] generated this result transmit britney reference range : 0.0 - 10.0 /100 WBC s. The reference r nicholas was not used to interpret this result as normal/abnormal . IPF % (test code = 8368423477) Lab Interpretation (test Abnormal code = 04961-2) [facility] WITHOUT [id number] 12:51:39 Test Item Value Reference Range Interpretation Comments WBC (test code = 6690-2) See_Comment H [A utomated message] The system [employer] generated this result transmit britney reference range : 4.30 - 11.10 10*3/?L. The reference range was not used to interpret this result as normal/abnormal . RBC (test code = 789-8) See_Comment [Au tomated message] The system [employer] generated this result transmit britney reference range [...] See_Comment H [Au tomated message] The system [employer] generated this result transmit britney reference range : 166 - 358 10*3/?L. The reference range was not used to interpret this result as normal/abnormal . MPV (test code = 10.1 fL 9.5-12.9 66166-7) RDW-CV (test code = 14.2 % 12.0-15.5 788-0) RDW-SD (test code = 43.8 fL 39.0-49.9 68263-7) NRBC x10^3 (test code = See_Comment [Au tomated message] 6092247110) The system [employer] h generated this result transmit britney reference range : 10*3/?L. The reference range was not used to interpret this result as normal/abnormal . NRBC/100 WBC (test code See_Comment [Au tomated message] = 5404723505) The system [employer] generated this result transmit britney reference range : 0.0 - 10.0 /100 WBC s. The reference r nicholas was not used to interpret this result as normal/abnormal . IPF % (test code = 6537199638) Lab Interpretation (test Abnormal code = 35491-4) [facility] TUBERCULOSIS COMPLEX PCR 2021-10-23 16:23:29 Test Item Value Reference Range Interpretation Comments Mycobacterium Negative Negative tuberculosis DNA (test code = 83034-0) LUCILLE (test code = LUCILLE) Method performance specifications have not been established for specimens other than SPUTUM. Results for other tested specimen types should be interpreted based on clinical context. Lab Interpretation Normal (test code = 69274-3) [facility]udaMYCOBA[facility] TUBERCULOSIS COMPLEX PCR 2021-10-23 16:23:29 Test Item Value Reference Range Interpretation Comments Mycobacterium Negative Negative tuberculosis DNA (test code = 38600-6) LUCILLE (test code = LUCILLE) Method performance specifications have not been established for specimens other than SPUTUM. Results for other tested specimen types should be interpreted based on clinical context. Lab Interpretation Normal (test code = 53256-5) [facility]uda[facility]PIR[facility] PAN[facility] BY [id number] 20:36:40 Test Item Value Reference Range Interpretation Comments Adenovirus (test code = Negative Negative 97284-2) Coronavirus HKU1 (test Negative Negative code = 18623-6) Coronavirus NL63 (test Negative Negative code = 32669-0) Coronavirus 229E (test Negative Negative code = 87557-9) Coronavirus OC43 (test Negative Negative code = 61285-5) Human Metapneumovirus Negative Negative (test code = 14236-7) Human Negative Negative Rhinovirus/Enterovirus (test code = 22427-2) Influenza A (test code = Negative Negative 14641-1) Influenza B (test code = Negative Negative 04344-8) Parainfluenza Virus 1 Negative Negative (test code = 24778-8) Parainfluenza Virus 2 Negative Negative (test code = 16783-2) Parainfluenza Virus 3 Negative Negative (test code = 32619-1) Parainfluenza Virus 4 Negative Negative (test code = 55161-4) Respiratory Syncytial Negative Negative Virus (test code = 00598-6) Bordetella parapertussis Negative Negative (test code = 94434-2) Bordetella pertussis Negative Negative (test code = 41498-8) Chlamydia pneumoniae Negative Negative (test code = 41802-6) Mycoplasma pneumoniae Negative Negative (test code = 67972-7) LUCILLE (test code = LUCILLE) Negative:A negative result does not rule-out infection. ?This assay does not test for all potential infectious agents. ? Positive:A positive test result does not necessarily indicate the presence of viable organism. ? Lab Interpretation (test Normal code = 80828-8) [facility] BY [id number] 20:36:40 Test Item Value Reference Range Interpretation Comments Adenovirus (test code = Negative Negative 57493-0) Coronavirus HKU1 (test Negative Negative code = 38138-0) Coronavirus NL63 (test Negative Negative code = 66351-3) Coronavirus 229E (test Negative Negative code = 96878-0) Coronavirus OC43 (test Negative Negative code = 43750-0) Human Metapneumovirus Negative Negative (test code = 67419-4) Human Negative Negative Rhinovirus/Enterovirus (test code = 23894-8) Influenza A (test code = Negative Negative 04122-9) Influenza B (test code = Negative Negative 05080-5) Parainfluenza Virus 1 Negative Negative (test code = 85992-3) Parainfluenza Virus 2 Negative Negative (test code = 45984-5) Parainfluenza Virus 3 Negative Negative (test code = 87033-1) Parainfluenza Virus 4 Negative Negative (test code = 71732-2) Respiratory Syncytial Negative Negative Virus (test code = 73786-1) Bordetella parapertussis Negative Negative (test code = 17517-1) Bordetella pertussis Negative Negative (test code = 50267-8) Chlamydia pneumoniae Negative Negative (test code = 15306-5) Mycoplasma pneumoniae Negative Negative (test code = 16772-6) LUCILLE (test code = LUCILLE) Negative:A negative result does not rule-out infection. ?This assay does not test for all potential infectious agents. ? Positive:A positive test result does not necessarily indicate the presence of viable organism. ? Lab Interpretation (test Normal code = 91201-1) [facility]ODY-PATHOLOGIST [id number] 19:52:54ANA - Pathologist InterpretationANA HEp-2 IIFA Pathologist [...] female gender. Clinical correlation is recommended. ? (https://pubmed.ncbi.nlm.nih.gov/10572274/) ? If the patient's clinical conditi on [...] clinicallyindicated. Juanis Mata MD ?10/22/2021 ?1:52 PM [facility] SERVICESB[facility]uda[facility]-NUCLEAR ANTIBODY- PATHOLOGIST [id number] 19:52:54ANA - Pathologist InterpretationANA HEp-2 II Pathologist [...] female gender. Clinical correlation is recommended. ? (https://pubmed.ncbi.nlm.nih.gov/78096655/) ? If the patient's clinical conditi on [...] clinicallyindicated. Juanis Mata MD ?10/22/2021 ?1:52 PM [facility] WITH [id number] 11:43:17 Test Item Value Reference Range Interpretation Comments WBC (test code = See_Comment H [Automated 1490-2) message] The system which generated this result [...] RDW-SD (test code = 46.8 fL 39.0-49.9 68772-3) RDW-CV (test code = 14.6 % 12.0-15.5 788-0) PLT (test code = See_Comment H [Automated 777-3) message] The system which generated this result transmit britney reference range : 166 - 358 10*3/ ?L. The reference range was not u sed to interpret th is result as normal/abnormal . MPV (test code = 10.2 fL 9.5-12.9 41300-1) NRBC/100 WBC (test See_Comment [Automat ed code = 6031356447) message] The system which generated this result transmit britney reference range : 0.0 - 10.0 /100 WBCs. The reference range was not used to interpret this result as normal/abnormal . NRBC x10^3 (test code <0.01 See_Comment [Auto mated = 6338102213) message] The system which generated this result transmit britney reference range : 10*3/?L. The reference range was not used to interpret this result as normal/abnormal . GRAN MAT (NEUT) % 93.6 % (test code = 770-8) IMM GRAN % (test code 2.10 % = 5266185142) LYMPH % (test code = 2.8 % 736-9) MONO % (test code = 1.4 % 5905-5) EOS % (test code = 0.0 % 713-8) BASO % (test code = 0.1 % 706-2) GRAN MAT x10^3(ANC) 17.50 10*3/uL 1.88-7.09 H (test code = 6914303578) IMM GRAN x10^3 (test 0.40 10*3/uL 0.00-0.06 H code = 4058470846) LYMPH x10^3 (test code 0.53 10*3/uL 1.32-3.29 L = 731-0) MONO x10^3 (test code 0.26 10*3/uL 0.33-0.92 L = 742-7) EOS x10^3 (test code = <0.03 0.03-0.39 L 711-2) BASO x10^3 (test code <0.03 0.01-0.07 = 704-7) TOXIC CHANGES (test Present A code = 803-7) Lab Interpretation Abnormal (test code = 06515-2) [facility] WITH [id number] 11:43:17 Test Item Value Reference Range Interpretation Comments WBC (test code = See_Comment H [Automated 4290-2) message] The system which generated this result transmit britney reference range : 4.30 - 11.10 10*3/?L. The reference range was not used to interpret this result as normal/abnormal . RBC (test code = See_Comment [Automated 509-8) message] The system which generated this result [...] RDW-SD (test code = 46.8 fL 39.0-49.9 87117-9) RDW-CV (test code = 14.6 % 12.0-15.5 788-0) PLT (test code = See_Comment H [Automated 777-3) message] The system which generated this result transmit britney reference range : 166 - 358 10*3/ ?L. The reference range was not u sed to interpret th is result as normal/abnormal . MPV (test code = 10.2 fL 9.5-12.9 54646-5) NRBC/100 WBC (test See_Comment [Automat ed code = 5621515648) message] The system which generated this result transmit britney reference range : 0.0 - 10.0 /100 WBCs. The reference range was not used to interpret this result as normal/abnormal . NRBC x10^3 (test code <0.01 See_Comment [Auto mated = 9127574497) message] The system which generated this result transmit britney reference range : 10*3/?L. The reference range was not used to interpret this result as normal/abnormal . GRAN MAT (NEUT) % 93.6 % (test code = 770-8) IMM GRAN % (test code 2.10 % = 7634714133) LYMPH % (test code = 2.8 % 736-9) MONO % (test code = 1.4 % 5905-5) EOS % (test code = 0.0 % 713-8) BASO % (test code = 0.1 % 706-2) GRAN MAT x10^3(ANC) 17.50 10*3/uL 1.88-7.09 H (test code = 1171827415) IMM GRAN x10^3 (test 0.40 10*3/uL 0.00-0.06 H code = 6200541875) LYMPH x10^3 (test code 0.53 10*3/uL 1.32-3.29 L = 731-0) MONO x10^3 (test code 0.26 10*3/uL 0.33-0.92 L = 742-7) EOS x10^3 (test code = <0.03 0.03-0.39 L 711-2) BASO x10^3 (test code <0.03 0.01-0.07 = 704-7) TOXIC CHANGES (test Present A code = 803-7) Lab Interpretation Abnormal (test code = 17455-3) [facility] METABOLIC PANEL (NA, K, CL, CO2, GLUCOSE, BUN, CREATININE, CA)2021-10-22 11:20:32 Test Item Value Reference Range Interpretation Comments NA (test code = 136 mmol/L 135-145 2770176391) K (test code = 4.3 mmol/L 3.5-5.0 5431003309) CL (test code = 103 mmol/L 98-108 4582520593) CO2 TOTAL (test code = 26 mmol/L 23-31 4789628202) AGAP (test code = 2-16 8346574110) BUN (test code = 18 mg/dL 7-23 0945710929) GLUCOSE (test code = 185 mg/dL 70-110 H 7725783107) CREATININE (test code = 0.69 mg/dL 0.50-1.04 0713218776) CALCIUM (test code = 7.9 mg/dL 8.6-10.6 L 5290050947) eGFR (test code = mL/min/1.73m2 1628123257) LUCILLE (test code = LUCILLE) Association of [...] tests). Lab Interpretation Abnormal (test code = 24228-8) [facility] Test Item Value Reference Range Interpretation Comments MAGNESIUM (test code = 3152775859) 2.2 mg/dL 1.7-2.4 Lab Interpretation (test code = Normal 15692-9) [facility] (NA, K, CL, CO2, GLUCOSE, BUN, CREATININE, CA)2021-10-22 11:20:32 Test Item Value Reference Range Interpretation Comments NA (test code = 136 mmol/L 135-145 4096370689) K (test code = 4.3 mmol/L 3.5-5.0 7516132186) CL (test code = 103 mmol/L 98-108 1740946421) CO2 TOTAL (test code = 26 mmol/L 23-31 4694849510) AGAP (test code = 2-16 6867667522) BUN (test code = 18 mg/dL 7-23 0242185833) GLUCOSE (test code = 185 mg/dL 70-110 H 8782700170) CREATININE (test code = 0.69 mg/dL 0.50-1.04 3906576166) CALCIUM (test code = 7.9 mg/dL 8.6-10.6 L 0410825655) eGFR (test code = mL/min/1.73m2 8549832037) LUCILLE (test code = LUCILLE) Association of [...] tests). Lab Interpretation Abnormal (test code = 00202-0) [facility] 11:20:32 Test Item Value Reference Range Interpretation Comments MAGNESIUM (test code = 1281227290) 2.2 mg/dL 1.7-2.4 Lab Interpretation (test code = Normal 42893-8) [facility] [id number] 23:01:06 Test Item Value Reference Range Interpretation Comments Blood Culture-Aerobic No organisms No growth Previo us (test code = 38792-0) isolated prelim inary verified result was Culture In Progress on 10/16/2021 at 20 02 CSTPrevious preliminary verified result was No growth a t 24 hours on 10/17/2021 at 17 01 CSTPrevious preliminary verified result was No growth a t 48 hours on 10/18/2021 at 17 01 CSTPrevious preliminary verified result was No growth a t 72 hours on 10/19/2021 at 17 02 [employer] Blood No organisms No growth Previous Culture-Anaerobic isolated preliminar y (test code = 78049-6) verifi ed result was Culture In Progress on 10/16/2021 at 20 02 CSTPrevious preliminary verified result was No growth a t 24 hours on 10/17/2021 at 17 01 CSTPrevious preliminary verified result was No growth a t 48 hours on 10/18/2021 at 17 01 CSTPrevious preliminary verified result was No growth a t 72 hours on 10/19/2021 at 17 02 [employer]ACH[employer] Lab Interpretation Normal (test code = 22382-0) [facility] CULTURE [id number] 23:01:06 Test Item Value Reference Range Interpretation Comments Blood Culture-Aerobic No organisms No growth Previo us (test code = 63192-0) isolated prelim inary verified result was Culture In Progress on 10/16/2021 at 20 02 CSTPrevious preliminary verified result was No growth a t 24 hours on 10/17/2021 at 17 01 CSTPrevious preliminary verified result was No growth a t 48 hours on 10/18/2021 at 17 02 CSTPrevious preliminary verified result was No growth a t 72 hours on 10/19/2021 at 17 02 [employer] Blood No organisms No growth Previous Culture-Anaerobic isolated preliminar y (test code = 34835-1) verifi ed result was Culture In Progress on 10/16/2021 at 20 02 CSTPrevious preliminary verified result was No growth a t 24 hours on 10/17/2021 at 17 01 CSTPrevious preliminary verified result was No growth a t 48 hours on 10/18/2021 at 17 02 CSTPrevious preliminary verified result was No growth a t 72 hours on 10/19/2021 at 17 02 [employer] Lab Interpretation Normal (test code = 96795-0) [facility] CULTURE [id number] 23:01:06 Test Item Value Reference Range Interpretation Comments Blood Culture-Aerobic No organisms No growth Previo us (test code = 79230-4) isolated prelim inary verified result was Culture In Progress on 10/16/2021 at 20 02 CSTPrevious preliminary verified result was No growth a t 24 hours on 10/17/2021 at 17 01 CSTPrevious preliminary verified result was No growth a t 48 hours on 10/18/2021 at 17 01 CSTPrevious preliminary verified result was No growth a t 72 hours on 10/19/2021 at 17 02 [employer] Blood No organisms No growth Previous Culture-Anaerobic isolated preliminar y (test code = 48260-7) verifi ed result was Culture In Progress on 10/16/2021 at 20 02 CSTPrevious preliminary verified result was No growth a t 24 hours on 10/17/2021 at 17 01 CSTPrevious preliminary verified result was No growth a t 48 hours on 10/18/2021 at 17 01 CSTPrevious preliminary verified result was No growth a t 72 hours on 10/19/2021 at 17 02 [employer] Lab Interpretation Normal (test code = 48394-5) [facility] [id number] 23:01:06 Test Item Value Reference Range Interpretation Comments Blood Culture-Aerobic No organisms No growth Previo us (test code = 89089-9) isolated prelim inary verified result was Culture In Progress on 10/16/2021 at 20 02 CSTPrevious preliminary verified result was No growth a t 24 hours on 10/17/2021 at 17 01 CSTPrevious preliminary verified result was No growth a t 48 hours on 10/18/2021 at 17 02 CSTPrevious preliminary verified result was No growth a t 72 hours on 10/19/2021 at 17 02 MACH[employer] Blood No organisms No growth Previous Culture-Anaerobic isolated preliminar y (test code = 93680-0) verifi ed result was Culture In Progress on 10/16/2021 at 20 02 CSTPrevious preliminary verified result was No growth a t 24 hours on 10/17/2021 at 17 01 CSTPrevious preliminary verified result was No growth a t 48 hours on 10/18/2021 at 17 02 CSTPrevious preliminary verified result was No growth a t 72 hours on 10/19/2021 at 17 02 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 The reference range was not used to interpret this result as normal/abnormal . PO2 (test code = See_Comment H [Automated 9283101441) message] The sy stem which generated this result transmitted reference range : 80 - 100 mmHg. The reference range was not used to interpret this result as normal/abnormal . HCO3 (test code = See_Comment [Automate d 2053763476) message] The sy stem which generated this result transmitted reference range : 22 - 26 mEq/L. The reference range was not used to interpret this result as normal/abnormal . BE (test code = See_Comment [Automated 8495813878) message] The sy stem which generated this result transmitted reference range : -3.0 - 3.0 mEq/ L. The reference r nicholas was not used to interpret this result as normal/abnormal . THB (test code = 12.1 g/dL 12.0-16.0 0203288715) %O2HB (test code = 99.5 % 94.0-99.0 H 0378635472) %COHB ART (test code = 0.1 % 0.0-1.5 3548701845) %METHB ART (test code = 0.1 % 0.4-1.5 L 0591731075) VOL%O2 ART (test code = 17.8 % 15.0-23.0 2517157354) NA (test code = 135 mmol/L 135-145 0625027382) K+ (test code = 4.3 mmol/L 3.5-5.0 0930111226) AC CA IONZ (test code = 4.50 mg/dL 4.50-5.30 4721406194) GLUCOSE (test code = 108 mg/dL 70-110 7443937492) LACTIC ACID (test code 2.19 mmol/L 0.50-2.20 = 7285708610) Lab Interpretation Abnormal (test code = 69909-7) [facility] + LACTIC [id number] 20:42:21 Test Item Value Reference Range Interpretation Comments PH (test code = 2) 7.35-7.45 PCO2 (test code = See_Comment [Automate d 3915485933) message] The sy stem which generated this result transmitted reference range : 35 - 45 mmHg. The reference range was not used to interpret this result as normal/abnormal . PO2 (test code = See_Comment H [Automated 0075992477) message] The sy stem which generated this result transmitted reference range : 80 - 100 mmHg. The reference range was not used to interpret this result as normal/abnormal . HCO3 (test code = See_Comment [Automate d 1950183993) message] The sy stem which generated this result transmitted reference range : 22 - 26 mEq/L. The reference range was not used to interpret this result as normal/abnormal . BE (test code = See_Comment [Automated 8239995755) message] The sy stem which generated this result transmitted reference range : -3.0 - 3.0 mEq/ L. The reference r nicholas was not used to interpret this result as normal/abnormal . THB (test code = 12.1 g/dL 12.0-16.0 4718681681) %O2HB (test code = 99.5 % 94.0-99.0 H 2366890915) %COHB ART (test code = 0.1 % 0.0-1.5 8977535042) %METHB ART (test code = 0.1 % 0.4-1.5 L 1786905004) VOL%O2 ART (test code = 17.8 % 15.0-23.0 7894067101) NA (test code = 135 mmol/L 135-145 8166336194) K+ (test code = 4.3 mmol/L 3.5-5.0 7849438597) AC CA IONZ (test code = 4.50 mg/dL 4.50-5.30 2389532069) GLUCOSE (test code = 108 mg/dL 70-110 0607355001) LACTIC ACID (test code 2.19 mmol/L 0.50-2.20 = 8692309294) Lab Interpretation Abnormal (test code = 56692-1) [facility]uda[facility]IOTENSIN CONVERTING [id number] 20:19:53 Test Item Value Reference Range Interpretation Comments MELLY (test code = 28 U/L -67 Performed B y: ARUP 2742-5) [address] [id number] Director: Korin Barillas MD [facility]udaANGIOTENSIN CONVERTING [id number] 20:19:53 Test Item Value Reference Range Interpretation Comments MELLY (test code = 28 U/L 9-67 Performed B y: ARUP 2742-5) [address], [place] [address]Xxayryshul Director: Korin Barillas MD [facility] BudaBODY FLUID MANUAL [id number] 19:44:45 Test Item Value Reference Range Interpretation Comments BF SEGS% (test code = 09556-1) 2 % BF LYMPHS% (test code = 60639-7) 12 % BF MACROPHAGE% (test code = 83577-7) 86 % BF #CELLS CNTD (test code = 1350453459) cells/uL [facility] FLUID MANUAL [id number] 19:44:45 Test Item Value Reference Range Interpretation Comments BF SEGS% (test code = 39038-4) 2 % BF LYMPHS% (test code = 38037-0) 12 % BF MACROPHAGE% (test code = 23089-9) 86 % BF #CELLS CNTD (test code = 2199804659) cells/uL [facility] FLUID DIRECT [id number] 19:44:30 Test Item Value Reference Range Interpretation Comments BF COLOR Clear (test code = 3625169353) BF WBC Count See_Comment [Automated (test code = message] The sy stem 9440574534) which generated this result transmitted reference range : /?L. The refere nce range was not u sed to interpret th is result as normal/abnormal . BF RBC Count <3000 See_Comment [Automated (test code = message] The sy stem 8888843627) which generated this result transmitted reference range : /?L. The refere nce range was not u sed to interpret th is result as normal/abnormal . LUCILLE (test The reference range code = LUCILLE) and other method performance specifications have not been established for this body fluid. ?The test results must be integrated into the clinical context for interpretation. [facility]uda[facility]ODY FLUID DIRECT [id number] 19:44:30 Test Item Value Reference Range Interpretation Comments BF COLOR Clear (test code = 1597377874) BF WBC Count See_Comment [Automated (test code = message] The sy stem 1647578923) which generated this result transmitted reference range : /?L. The refere nce range was not u sed to interpret th is result as normal/abnormal . BF RBC Count <3000 See_Comment [Automated (test code = message] The sy stem 1915157178) which generated this result transmitted reference range : /?L. The refere nce range was not u sed to interpret th is result as normal/abnormal . LUCILLE (test The reference range code = LUCILLE) and other method performance specifications have not been established for this body fluid. ?The test results must be integrated into the clinical context for interpretation. [facility] WITH [id number] 19:27:30 Test Item Value Reference Range Interpretation [...] RDW-SD (test code = 45.8 fL 39.0-49.9 08054-1) RDW-CV (test code = 14.4 % 12.0-15.5 788-0) PLT (test code = See_Comment H [Automated 777-3) message] The system which generated this result transmit britney reference range : 166 - 358 10*3/ ?L. The reference range was not u sed to interpret th is result as normal/abnormal . MPV (test code = 10.4 fL 9.5-12.9 01568-9) NRBC/100 WBC (test See_Comment [Automat ed code = 5198939561) message] The system which generated this result transmit britney reference range : 0.0 - 10.0 /100 WBCs. The reference range was not used to interpret this result as normal/abnormal . NRBC x10^3 (test code See_Comment [Auto mated = 0029013915) message] The system which generated this result transmit britney reference range : 10*3/?L. The reference range was not used to interpret this result as normal/abnormal . SEG % (test code = 84 % 33-76 H 02915-5) BAND % (test code = 8 % 0-1 H 93995-9) MYELO % (test code = 2 % See_Comment H [Autom ated 22062-5) message] The system which generated this result transmit britney reference range : <=0. The refere nce range was not u sed to interpret th is result as normal/abnormal . LYMPH % (test code = 4 % 14-54 L 92808-6) MONO % (test code = 2 % 0-4 72751-3) ANC (test code = 21.16 10*3/uL 1.88-7.09 H 753-4) Lab Interpretation Abnormal (test code = 56199-2) [facility] WITH [id number] 19:27:30 Test Item Value Reference Range Interpretation [...] RDW-SD (test code = 45.8 fL 39.0-49.9 27108-6) RDW-CV (test code = 14.4 % 12.0-15.5 788-0) PLT (test code = See_Comment H [Automated 777-3) message] The system which generated this result transmit britney reference range : 166 - 358 10*3/ ?L. The reference range was not u sed to interpret th is result as normal/abnormal . MPV (test code = 10.4 fL 9.5-12.9 12657-9) NRBC/100 WBC (test See_Comment [Automat ed code = 4298202122) message] The system which generated this result transmit britney reference range : 0.0 - 10.0 /100 WBCs. The reference range was not used to interpret this result as normal/abnormal . NRBC x10^3 (test code See_Comment [Auto mated = 5245371047) message] The system which generated this result transmit britney reference range : 10*3/?L. The reference range was not used to interpret this result as normal/abnormal . SEG % (test code = 84 % 33-76 H 49858-5) BAND % (test code = 8 % 0-1 H 43073-1) MYELO % (test code = 2 % See_Comment H [Autom ated 35125-9) message] The system which generated this result transmit britney reference range : <=0. The refere nce range was not u sed to interpret th is result as normal/abnormal . LYMPH % (test code = 4 % 14-54 L 19124-4) MONO % (test code = 2 % 0-4 37196-4) ANC (test code = 21.16 10*3/uL 1.88-7.09 H 753-4) Lab Interpretation Abnormal (test code = 61977-5) [facility] METABOLIC PANEL (NA, K, CL, CO2, GLUCOSE, BUN, CREATININE, CA)2021-10-21 19:20:26 Test Item Value Reference Range Interpretation Comments NA (test code = 125 mmol/L 135-145 L 9493103314) K (test code = 4.4 mmol/L 3.5-5.0 Slight 2911821516) hemolysis CL (test code = 98 mmol/L 98-108 3083655536) CO2 TOTAL (test code 19 mmol/L 23-31 L = 0909154344) AGAP (test code = 2-16 7535573429) BUN (test code = 21 mg/dL 7-23 Slight 9864613913) hemolysis GLUCOSE (test code = 155 mg/dL 70-110 H 7080432531) CREATININE (test code 0.63 mg/dL 0.50-1.04 = 0709754770) CALCIUM (test code = 6.9 mg/dL 8.6-10.6 L 3833181420) eGFR (test code = mL/min/1.73m2 2993836242) LUCILLE (test code = LUCILLE) Association of [...] tests). Lab Interpretation Abnormal (test code = 26706-9) [facility] METABOLIC PANEL (NA, K, CL, CO2, GLUCOSE, BUN, CREATININE, CA)2021-10-21 19:20:26 Test Item Value Reference Range Interpretation Comments NA (test code = 125 mmol/L 135-145 L 5475286887) K (test code = 4.4 mmol/L 3.5-5.0 Slight 2394573522) hemolysis CL (test code = 98 mmol/L 98-108 4047491008) CO2 TOTAL (test code 19 mmol/L 23-31 L = 0794778309) AGAP (test code = 2-16 3800666629) BUN (test code = 21 mg/dL 7-23 Slight 0630962613) hemolysis GLUCOSE (test code = 155 mg/dL 70-110 H 1497237907) CREATININE (test code 0.63 mg/dL 0.50-1.04 = 3123531033) CALCIUM (test code = 6.9 mg/dL 8.6-10.6 L 4449099617) eGFR (test code = mL/min/1.73m2 2736624429) LUCILLE (test code = LUCILLE) Association of [...] tests). Lab Interpretation Abnormal (test code = 60612-2) [facility] Test Item Value Reference Range Interpretation Comments Fibrinogen (test code = 2752358719) 585 mg/dL 167-453 H Lab Interpretation (test code = Abnormal 90228-0) [facility]uda[facility]HROM[facility] / [id number] 19:12:03 Test Item Value Reference Range Interpretation Comments PROTIME PATIENT (test See_Comment H [Auto mated message] code = 5964-2) The system [employer] generated this result transmitted ref erence range: 10.1 - 1 2.6 Seconds. The reference range was not used to int erpret this result as normal/abnormal . INR (test code = 6301-6) Nor mal INR <1.1; Warfarin Therap eutic range 2.0 to 3. 0 or 2.5 to 3.5, dep ending upon the indica tions. Lab Interpretation (test Abnormal code = 35825-0) [facility] 19:12:03 Test Item Value Reference Range Interpretation Comments Fibrinogen (test code = 6405172419) 585 mg/dL 167-453 H Lab Interpretation (test code = Abnormal 53571-0) [facility]uda[facility]HROM[facility] / [id number] 19:12:03 Test Item Value Reference Range Interpretation Comments PROTIME PATIENT (test See_Comment H [Auto mated message] code = 5964-2) The system [employer] generated this result transmitted ref erence range: 10.1 - 1 2.6 Seconds. The reference range was not used to int erpret this result as normal/abnormal . INR (test code = 6301-6) Nor mal INR <1.1; Warfarin Therap eutic range 2.0 to 3. 0 or 2.5 to 3.5, dep ending upon the indica tions. Lab Interpretation (test Abnormal code = 14703-9) [facility] [id number] 04:54:18 Test Item Value Reference Range Interpretation Comments URIC ACID (test code = 0733140247) 4.3 mg/dL 2.9-6.0 Lab Interpretation (test code = Normal 77237-3) [facility] [id number] 04:54:18 Test Item Value Reference Range Interpretation Comments URIC ACID (test code = 4664842103) 4.3 mg/dL 2.9-6.0 Lab Interpretation (test code = Normal 26894-2) [facility]udaTransthoracic echo (TTE)2021-10-20 20:54:06 Test Item Value Reference Range Interpretation Comments EF(Teich) (test code = 63.80 % 8257679126) LVIDD (test code = 4.40 cm 2910865883) LVIDS (test code = 2.90 cm 4940154346) IVS (test code = 0.86 cm 6962928283) LVPWD (test code = 0.86 cm 3981349503) LVOT diameter (test code 2.00 cm = 9333215628) FS (test code = 35 % 3625666596) LA size (test code = 3.4 cm 4485132182) LAV(MOD-sp4) (test code = 41.40 mL 6932518146) Ao root annulus (test 2.44 cm code = 2586529127) Ao root diam (test code = 2.44 cm 6048099923) Aortic root (test code = 2.44 cm 5463352562) PW (test code = 0.86 cm 0.6-1.3 9346679367) EF - 2D (test code = 63.80 % 05730413) Interventricular Septum 0.86 cm Diastolic Thickness by 2D (test code = 5145593) Radiology Study observation (narrative) (test code = 41053-5) LUCILLE (test code = LUCILLE) ?Left?Ventricle: Left [...] [facility]2021-10-20 20:54:06 Test Item Value Reference Range Interpretation Comments EF(Teich) (test code = 63.80 % 0863274864) LVIDD (test code = 4.40 cm 0264969301) LVIDS (test code = 2.90 cm 5244118662) IVS (test code = 0.86 cm 5873546850) LVPWD (test code = 0.86 cm 0684548525) LVOT diameter (test code 2.00 cm = 9076492722) FS (test code = 35 % 9255388183) LA size (test code = 3.4 cm 4358035911) LAV(MOD-sp4) (test code = 41.40 mL 7863089903) Ao root annulus (test 2.44 cm code = 4861503799) Ao root diam (test code = 2.44 cm 5488365711) Aortic root (test code = 2.44 cm 1839511664) PW (test code = 0.86 cm 0.6-1.6 0097485593) EF - 2D (test code = 63.80 % 34718202) Interventricular Septum 0.86 cm Diastolic Thickness by 2D (test code = 4092590) Radiology Study observation (narrative) (test code = 15396-2) LUCILLE (test code = LUCILLE) ?Left?Ventricle: Left ventricle is normal in size and function. Normal wall thickness. Normal systolic function with a visually estimated EF of 55 - 60%. ?Aortic?Valve: Aortic valve is normal in structure and function. ?Mitral?Valve: Mitral valve is normal in structure and function. VitalsHeight Weight BSA (Calculated - sq m) BP Pulse 60 220lb ? ?114/63 81 [facility] WITH [id number] 11:09:20 Test Item Value Reference Range Interpretation Comments WBC (test code = See_Comment H [Automated 7463-2) message] The system which generated this result transmit britney reference range : 4.30 - 11.10 10*3/?L. The reference range was not used to interpret this result as normal/abnormal . RBC (test code = See_Comment L [Automated 349-8) message] The system which generated this result [...] RDW-SD (test code = 46.3 fL 39.0-49.9 57323-8) RDW-CV (test code = 14.5 % 12.0-15.5 788-0) PLT (test code = See_Comment [Automated 777-3) message] The system which generated this result transmit britney reference range : 166 - 358 10*3/ ?L. The reference range was not u sed to interpret th is result as normal/abnormal . MPV (test code = 9.9 fL 9.5-12.9 47689-8) NRBC/100 WBC (test See_Comment [Automat ed code = 0383225686) message] The system which generated this result transmit britney reference range : 0.0 - 10.0 /100 WBCs. The reference range was not used to interpret this result as normal/abnormal . NRBC x10^3 (test code <0.01 See_Comment [Auto mated = 6600196685) message] The system which generated this result transmit britney reference range : 10*3/?L. The reference range was not used to interpret this result as normal/abnormal . GRAN MAT (NEUT) % 89.9 % (test code = 770-8) IMM GRAN % (test code 2.90 % = 4646986084) LYMPH % (test code = 4.2 % 736-9) MONO % (test code = 2.9 % 5905-5) EOS % (test code = 0.0 % 713-8) BASO % (test code = 0.1 % 706-2) GRAN MAT x10^3(ANC) 14.51 10*3/uL 1.88-7.09 H (test code = 0319930546) IMM GRAN x10^3 (test 0.46 10*3/uL 0.00-0.06 H code = 5946755409) LYMPH x10^3 (test code 0.67 10*3/uL 1.32-3.29 L = 731-0) MONO x10^3 (test code 0.47 10*3/uL 0.33-0.92 = 742-7) EOS x10^3 (test code = <0.03 0.03-0.39 L 711-2) BASO x10^3 (test code <0.03 0.01-0.07 = 704-7) TOXIC CHANGES (test Present A code = 803-7) Lab Interpretation Abnormal (test code = 58971-2) [facility] WITH [id number] 11:09:20 Test Item Value Reference Range Interpretation Comments WBC (test code = See_Comment H [Automated 4997-2) message] The system which generated this result transmit britney reference range : 4.30 - 11.10 10*3/?L. The reference range was not used to interpret this result as normal/abnormal . RBC (test code = See_Comment L [Automated 119-8) message] The system which generated [...] RDW-SD (test code = 46.3 fL 39.0-49.9 15541-3) RDW-CV (test code = 14.5 % 12.0-15.5 788-0) PLT (test code = See_Comment [Automated 777-3) message] The system which generated this result transmit britney reference range : 166 - 358 10*3/ ?L. The reference range was not u sed to interpret th is result as normal/abnormal . MPV (test code = 9.9 fL 9.5-12.9 11520-3) NRBC/100 WBC (test See_Comment [Automat ed code = 4281615932) message] The system which generated this result transmit britney reference range : 0.0 - 10.0 /100 WBCs. The reference range was not used to interpret this result as normal/abnormal . NRBC x10^3 (test code <0.01 See_Comment [Auto mated = 9655754915) message] The system which generated this result transmit britney reference range : 10*3/?L. The reference range was not used to interpret this result as normal/abnormal . GRAN MAT (NEUT) % 89.9 % (test code = 770-8) IMM GRAN % (test code 2.90 % = 6339792381) LYMPH % (test code = 4.2 % 736-9) MONO % (test code = 2.9 % 5905-5) EOS % (test code = 0.0 % 713-8) BASO % (test code = 0.1 % 706-2) GRAN MAT x10^3(ANC) 14.51 10*3/uL 1.88-7.09 H (test code = 5174264882) IMM GRAN x10^3 (test 0.46 10*3/uL 0.00-0.06 H code = 8976312343) LYMPH x10^3 (test code 0.67 10*3/uL 1.32-3.29 L = 731-0) MONO x10^3 (test code 0.47 10*3/uL 0.33-0.92 = 742-7) EOS x10^3 (test code = <0.03 0.03-0.39 L 711-2) BASO x10^3 (test code <0.03 0.01-0.07 = 704-7) TOXIC CHANGES (test Present A code = 803-7) Lab Interpretation Abnormal (test code = 39505-0) [facility] METABOLIC PANEL (NA, K, CL, CO2, GLUCOSE, BUN, CREATININE, CA)2021-10-20 10:55:22 Test Item Value Reference Range Interpretation Comments NA (test code = 136 mmol/L 135-145 8725840079) K (test code = 4.1 mmol/L 3.5-5.0 8843728529) CL (test code = 108 mmol/L 98-108 2758586363) CO2 TOTAL (test code = 25 mmol/L 23-31 2163530076) AGAP (test code = 2-16 9092495077) BUN (test code = 23 mg/dL 7-23 3066967961) GLUCOSE (test code = 134 mg/dL 70-110 H 4887977417) CREATININE (test code = 0.67 mg/dL 0.50-1.04 3594659442) CALCIUM (test code = 7.5 mg/dL 8.6-10.6 L 5788282156) eGFR (test code = mL/min/1.73m2 7312558003) LUCILLE (test code = LUCILLE) Association of [...] tests). Lab Interpretation Abnormal (test code = 92229-1) [facility] METABOLIC PANEL (NA, K, CL, CO2, GLUCOSE, BUN, CREATININE, CA)2021-10-20 10:55:22 Test Item Value Reference Range Interpretation Comments NA (test code = 136 mmol/L 135-145 4121918188) K (test code = 4.1 mmol/L 3.5-5.0 9187797527) CL (test code = 108 mmol/L 98-108 9614607610) CO2 TOTAL (test code = 25 mmol/L 23-31 2014557226) AGAP (test code = 2-16 4230925591) BUN (test code = 23 mg/dL 7-23 4543758498) GLUCOSE (test code = 134 mg/dL 70-110 H 1029687186) CREATININE (test code = 0.67 mg/dL 0.50-1.04 7812906080) CALCIUM (test code = 7.5 mg/dL 8.6-10.6 L 5620339819) eGFR (test code = mL/min/1.73m2 1276634409) LUCILLE (test code = LUCILLE) Association of [...] tests). Lab Interpretation Abnormal (test code = 45244-4) [facility] [id number] 21:49:45 Test Item Value Reference Range Interpretation Comments ANTI-DSDNA (test code See_Comment [Auto mated = 2957385933) message] The system which generated this result transmit britney reference range : 0.0 - 4.0 IU/mL . The reference range was not u sed to interpret th is result as normal/abnormal . LUCILLE (test code = LUCILLE) Negative ? ?< or = 4 IU/mLPositive ? ? ?> or = 10 IU/mLIndetermin ate ?5-9 IU/mL Lab Interpretation Normal (test code = 63793-8) [facility] [id number] 21:49:45 Test Item Value Reference Range Interpretation Comments ANTI-DSDNA (test code See_Comment [Auto mated = 4894968927) message] The system which generated this result transmit britney reference range : 0.0 - 4.0 IU/mL . The reference range was not u sed to interpret th is result as normal/abnormal . LUCILLE (test code = LUCILLE) Negative ? ?< or = 4 IU/mLPositive ? ? ?> or = 10 IU/mLIndetermin ate ?5-9 IU/mL Lab Interpretation Normal (test code = 16414-0) [facility]2022-02-16 21:43:06 Test Item Value Reference Range Interpretation Comments RF (test code = <20 See_Comment [Automated message] 8897982323) The system [employer] generated this result transmitted ref erence range: <20 IU/m L. The reference range was not used to int erpret this result as normal/abnormal . Lab Interpretation (test Normal code = 50543-7) [facility]2022-02-16 21:43:06 Test Item Value Reference Range Interpretation Comments RF (test code = <20 See_Comment [Automated message] 1460730741) The system [employer] generated this result transmitted ref erence range: <20 IU/m L. The reference range was not used to int erpret this result as normal/abnormal . Lab Interpretation (test Normal code = 31409-5) [facility]uda[facility] ANTIBODY [id number] 20:22:55 Test Item Value Reference Range Interpretation Comments SHIRA Titer by IFA <=1:80 (test code = 8495092312) SHIRA Pattern (test SHIRA screen was positive code = [id number]) at the 1:80 dilution but with low [...] [facility] [id number] 20:22:55 Test Item Value Reference Range Interpretation Comments SHIRA Titer by IFA <=1:80 (test code = 4693595417) SHIRA Pattern (test SHIRA screen was positive code = 5523477440) at the 1:80 dilution but with low [...] [facility]uda[facility] [id number] 18:12:04 Test Item Value Reference Range Interpretation Comments Myeloperoxidase (MPO) Negative Negative Antibodies, IgG Interpretation (test code = 46636-2) Proteinase 3 (PR3) Negative Negative Antibodies, IgG Interpretation (test code = 60313-3) Myeloperoxidase (MPO) <0.3 See_Comment [Auto mated Antibodies, IgG (test messag e] The code = 9957259368) system [employer] generated this result transmitted reference range : <=3.5 U/mL. The reference range was not used to interpret this result as normal/abnormal . Proteinase 3 (PR3) <0.7 See_Comment [Automat ed Antibodies, IgG (test messag e] The code = 0288826159) system [facility] generated this result transmitted reference range : [...] weeks. Lab Interpretation Normal (test code = 97595-9) [facility] [id number] 18:12:04 Test Item Value Reference Range Interpretation Comments Myeloperoxidase (MPO) Negative Negative Antibodies, IgG Interpretation (test code = 96181-4) Proteinase 3 (PR3) Negative Negative Antibodies, IgG Interpretation (test code = 43121-6) Myeloperoxidase (MPO) <0.3 See_Comment [Auto mated Antibodies, IgG (test messag e] The code = 0629191589) system [facility] generated this result transmitted reference range : <=3.5 U/mL. The reference range was not used to interpret this result as normal/abnormal . Proteinase 3 (PR3) <0.7 See_Comment [Automat ed Antibodies, IgG (test messag e] The code = 9399039743) system [facility] generated this result transmitted reference range : [...] weeks. Lab Interpretation Normal (test code = 94491-5) [facility] Test Item Value Reference Range Interpretation Comments MAGNESIUM (test code = 7906154541) 2.9 mg/dL 1.7-2.4 H Lab Interpretation (test code = Abnormal 17267-2) [facility]:47[facility]40 Test Item Value Reference Range Interpretation Comments MAGNESIUM (test code = 6650160989) 2.9 mg/dL 1.7-2.4 H Lab Interpretation (test code = Abnormal 13145-8) [facility] WITH [id number] 09:31:49 Test Item Value Reference Range Interpretation Comments WBC (test code = See_Comment H [Automated 6690-2) message] The system which generated this result transmit britney reference range : 4.30 - 11.10 10*3/?L. The reference range was not used to interpret this result as normal/abnormal . RBC (test code = See_Comment L [Automated 249-8) message] The system which generated [...] RDW-SD (test code = 45.5 fL 39.0-49.9 95809-9) RDW-CV (test code = 14.4 % 12.0-15.5 788-0) PLT (test code = See_Comment [Automated 777-3) message] The system which generated this result transmit britney reference range : 166 - 358 10*3/ ?L. The reference range was not u sed to interpret th is result as normal/abnormal . MPV (test code = 10.0 fL 9.5-12.9 19399-5) NRBC/100 WBC (test See_Comment [Automat ed code = 9135704576) message] The system which generated this result transmit britney reference range : 0.0 - 10.0 /100 WBCs. The reference range was not used to interpret this result as normal/abnormal . NRBC x10^3 (test code <0.01 See_Comment [Auto mated = 9052817393) message] The system which generated this result transmit britney reference range : 10*3/?L. The reference range was not used to interpret this result as normal/abnormal . GRAN MAT (NEUT) % 93.4 % (test code = 770-8) IMM GRAN % (test code 1.50 % = 7252979815) LYMPH % (test code = 2.4 % 736-9) MONO % (test code = 2.6 % 5905-5) EOS % (test code = 0.0 % 713-8) BASO % (test code = 0.1 % 706-2) GRAN MAT x10^3(ANC) 17.74 10*3/uL 1.88-7.09 H (test code = 4916999239) IMM GRAN x10^3 (test 0.28 10*3/uL 0.00-0.06 H code = 6097828483) LYMPH x10^3 (test code 0.46 10*3/uL 1.32-3.29 L = 731-0) MONO x10^3 (test code 0.50 10*3/uL 0.33-0.92 = 742-7) EOS x10^3 (test code = <0.03 0.03-0.39 L 711-2) BASO x10^3 (test code <0.03 0.01-0.07 = 704-7) TOXIC CHANGES (test Present A code = 803-7) Lab Interpretation Abnormal (test code = 71973-5) [facility] WITH [id number] 09:31:49 Test Item Value Reference Range Interpretation [...] RDW-SD (test code = 45.5 fL 39.0-49.9 88529-2) RDW-CV (test code = 14.4 % 12.0-15.5 788-0) PLT (test code = See_Comment [Automated 777-3) message] The system which generated this result transmit britney reference range : 166 - 358 10*3/ ?L. The reference range was not u sed to interpret th is result as normal/abnormal . MPV (test code = 10.0 fL 9.5-12.9 53144-8) NRBC/100 WBC (test See_Comment [Automat ed code = 1558361545) message] The system which generated this result transmit britney reference range : 0.0 - 10.0 /100 WBCs. The reference range was not used to interpret this result as normal/abnormal . NRBC x10^3 (test code <0.01 See_Comment [Auto mated = 8424180849) message] The system which generated this result transmit britney reference range : 10*3/?L. The reference range was not used to interpret this result as normal/abnormal . GRAN MAT (NEUT) % 93.4 % (test code = 770-8) IMM GRAN % (test code 1.50 % = 3873252308) LYMPH % (test code = 2.4 % 736-9) MONO % (test code = 2.6 % 5905-5) EOS % (test code = 0.0 % 713-8) BASO % (test code = 0.1 % 706-2) GRAN MAT x10^3(ANC) 17.74 10*3/uL 1.88-7.09 H (test code = 9301297719) IMM GRAN x10^3 (test 0.28 10*3/uL 0.00-0.06 H code = 4307202351) LYMPH x10^3 (test code 0.46 10*3/uL 1.32-3.29 L = 731-0) MONO x10^3 (test code 0.50 10*3/uL 0.33-0.92 = 742-7) EOS x10^3 (test code = <0.03 0.03-0.39 L 711-2) BASO x10^3 (test code <0.03 0.01-0.07 = 704-7) TOXIC CHANGES (test Present A code = 803-7) Lab Interpretation Abnormal (test code = 57627-6) [facility] METABOLIC PANEL (NA, K, CL, CO2, GLUCOSE, BUN, CREATININE, CA)2021-10-19 09:25:48 Test Item Value Reference Range Interpretation Comments NA (test code = 144 mmol/L 135-145 5772840969) K (test code = 4.5 mmol/L 3.5-5.0 4096395406) CL (test code = 111 mmol/L 98-108 H 2888095098) CO2 TOTAL (test code = 27 mmol/L 23-31 2948904407) AGAP (test code = 2-16 6038649715) BUN (test code = 30 mg/dL 7-23 H 2712564278) GLUCOSE (test code = 159 mg/dL 70-110 H 6349154990) CREATININE (test code = 0.81 mg/dL 0.50-1.04 7227915399) CALCIUM (test code = 8.2 mg/dL 8.6-10.6 L 2873987798) eGFR (test code = mL/min/1.73m2 5739081429) LUCILLE (test code = LUCILLE) Association of [...] tests). Lab Interpretation Abnormal (test code = 61578-5) [facility] METABOLIC PANEL (NA, K, CL, CO2, GLUCOSE, BUN, CREATININE, CA)2021-10-19 09:25:48 Test Item Value Reference Range Interpretation Comments NA (test code = 144 mmol/L 135-145 8792723241) K (test code = 4.5 mmol/L 3.5-5.0 7181244970) CL (test code = 111 mmol/L 98-108 H 5429153054) CO2 TOTAL (test code = 27 mmol/L 23-31 2013431952) AGAP (test code = 2-16 7543381522) BUN (test code = 30 mg/dL 7-23 H 7267422156) GLUCOSE (test code = 159 mg/dL 70-110 H 4543772348) CREATININE (test code = 0.81 mg/dL 0.50-1.04 9016697761) CALCIUM (test code = 8.2 mg/dL 8.6-10.6 L 0343153086) eGFR (test code = mL/min/1.73m2 2492132450) LUCILLE (test code = LUCILLE) Association of [...] tests). Lab Interpretation Abnormal (test code = 26617-1) [facility] GLUCOSE (AUTOMATED)2021-10-19 02:29:39 Test Item Value Reference Range Interpretation Comments POCT GLU (test code = 9220066905) 159 mg/dL 70-110 H Lab Interpretation (test code = Abnormal 45789-6) [facility] GLUCOSE (AUTOMATED)2021-10-19 02:29:39 Test Item Value Reference Range Interpretation Comments POCT GLU (test code = 8628224543) 159 mg/dL 70-110 H Lab Interpretation (test code = Abnormal 90410-2) [facility] [id number] 22:06:05 Test Item Value Reference Range Interpretation Comments SHIRA (test code = Positive Negative A 3338752808) LUCILLE (test code = LUCILLE) Negative - No Anti-Nuclear Antibodies detected by IFA.Positive - SHIRA IFA screen performed with a 1:80 dilution in adults and a 1:40 dilution in pediatrics. Any SHIRA "Positive" will have titer performed and reported separately. Lab Interpretation (test Abnormal code = 21604-6) [facility] [id number] 22:06:05 Test Item Value Reference Range Interpretation Comments SHIRA (test code = Positive Negative A 2930353442) LUCILLE (test code = LUCILLE) Negative - No Anti-Nuclear Antibodies detected by IFA.Positive - SHIRA IFA screen performed with a 1:80 dilution in adults and a 1:40 dilution in pediatrics. Any SHIRA "Positive" will have titer performed and reported separately. Lab Interpretation (test Abnormal code = 32812-3) [facility]uda[facility]YCOSYLATED HEMOGLOBIN (A1C)2021-10-18 17:16:16 Test Item Value Reference Range Interpretation Comments HGB A1C (test code = 6.0 % 4.0-5.7 H 4548-4) LUCILLE (test code = LUCILLE) Reference RangesNormal: <5.7%Prediabetes: 5.7 - 6.4%Diabetes: > 6.5% Lab Interpretation (test Abnormal code = 89337-1) [facility]uda[facility]YCOSYL[facility] HEMOGLOBIN (A1C)2021-10-18 17:16:16 Test Item Value Reference Range Interpretation Comments HGB A1C (test code = 6.0 % 4.0-5.7 H 4548-4) LUCILLE (test code = LUCILLE) Reference RangesNormal: <5.7%Prediabetes: 5.7 - 6.4%Diabetes: > 6.5% Lab Interpretation (test Abnormal code = 69908-4) [facility]uda[facility] WITH [id number] 10:21:29 Test Item Value Reference Range Interpretation Comments WBC (test code = See_Comment H [Automated 7890-2) message] The system which generated this result [...] RDW-SD (test code = 44.0 fL 39.0-49.9 12743-6) RDW-CV (test code = 14.1 % 12.0-15.5 788-0) PLT (test code = See_Comment [Automated 777-3) message] The system which generated this result transmit britney reference range : 166 - 358 10*3/ ?L. The reference range was not u sed to interpret th is result as normal/abnormal . MPV (test code = 10.5 fL 9.5-12.9 36746-4) NRBC/100 WBC (test See_Comment [Automat ed code = 7364597964) message] The system which generated this result transmit britney reference range : 0.0 - 10.0 /100 WBCs. The reference range was not used to interpret this result as normal/abnormal . NRBC x10^3 (test code <0.01 See_Comment [Auto mated = 7611554105) message] The system which generated this result transmit britney reference range : 10*3/?L. The reference range was not used to interpret this result as normal/abnormal . GRAN MAT (NEUT) % 94.3 % (test code = 770-8) IMM GRAN % (test code 1.00 % = 9829493717) LYMPH % (test code = 2.1 % 736-9) MONO % (test code = 2.5 % 5905-5) EOS % (test code = 0.0 % 713-8) BASO % (test code = 0.1 % 706-2) GRAN MAT x10^3(ANC) 18.69 10*3/uL 1.88-7.09 H (test code = 9231754348) IMM GRAN x10^3 (test 0.20 10*3/uL 0.00-0.06 H code = 3593408773) LYMPH x10^3 (test code 0.42 10*3/uL 1.32-3.29 L = 731-0) MONO x10^3 (test code 0.50 10*3/uL 0.33-0.92 = 742-7) EOS x10^3 (test code = <0.03 0.03-0.39 L 711-2) BASO x10^3 (test code <0.03 0.01-0.07 = 704-7) TOXIC CHANGES (test Present A code = 803-7) Lab Interpretation Abnormal (test code = 90487-8) [facility] WITH [id number] 10:21:29 Test Item Value Reference Range Interpretation [...] RDW-SD (test code = 44.0 fL 39.0-49.9 46019-7) RDW-CV (test code = 14.1 % 12.0-15.5 788-0) PLT (test code = See_Comment [Automated 777-3) message] The system which generated this result transmit britney reference range : 166 - 358 10*3/ ?L. The reference range was not u sed to interpret th is result as normal/abnormal . MPV (test code = 10.5 fL 9.5-12.9 78784-3) NRBC/100 WBC (test See_Comment [Automat ed code = 0492587888) message] The system which generated this result transmit britney reference range : 0.0 - 10.0 /100 WBCs. The reference range was not used to interpret this result as normal/abnormal . NRBC x10^3 (test code <0.01 See_Comment [Auto mated = 6329972282) message] The system which generated this result transmit britney reference range : 10*3/?L. The reference range was not used to interpret this result as normal/abnormal . GRAN MAT (NEUT) % 94.3 % (test code = 770-8) IMM GRAN % (test code 1.00 % = 4598777717) LYMPH % (test code = 2.1 % 736-9) MONO % (test code = 2.5 % 5905-5) EOS % (test code = 0.0 % 713-8) BASO % (test code = 0.1 % 706-2) GRAN MAT x10^3(ANC) 18.69 10*3/uL 1.88-7.09 H (test code = 3215805157) IMM GRAN x10^3 (test 0.20 10*3/uL 0.00-0.06 H code = 6884959948) LYMPH x10^3 (test code 0.42 10*3/uL 1.32-3.29 L = 731-0) MONO x10^3 (test code 0.50 10*3/uL 0.33-0.92 = 742-7) EOS x10^3 (test code = <0.03 0.03-0.39 L 711-2) BASO x10^3 (test code <0.03 0.01-0.07 = 704-7) TOXIC CHANGES (test Present A code = 803-7) Lab Interpretation Abnormal (test code = 78530-9) [facility] METABOLIC PANEL (NA, K, CL, CO2, GLUCOSE, BUN, CREATININE, CA)2021-10-18 09:49:57 Test Item Value Reference Range Interpretation Comments NA (test code = 141 mmol/L 135-145 4856729483) K (test code = 4.9 mmol/L 3.5-5.0 4738972756) CL (test code = 107 mmol/L 98-108 2287816029) CO2 TOTAL (test code = 26 mmol/L 23-31 9900649182) AGAP (test code = 2-16 5569618513) BUN (test code = 30 mg/dL 7-23 H 9743048489) GLUCOSE (test code = 166 mg/dL 70-110 H 6338501375) CREATININE (test code = 0.76 mg/dL 0.50-1.04 5723020739) CALCIUM (test code = 8.2 mg/dL 8.6-10.6 L 3499551465) eGFR (test code = mL/min/1.73m2 2533136878) LUCILLE (test code = LUCILLE) Association of [...] tests). Lab Interpretation Abnormal (test code = 90523-6) [facility] 09:49:57 Test Item Value Reference Range Interpretation Comments MAGNESIUM (test code = 2040630343) 3.0 mg/dL 1.7-2.4 H Lab Interpretation (test code = Abnormal 35845-7) [facility]2022-[facility]-15 09:49:57 Test Item Value Reference Range Interpretation Comments PHOSPHORUS (test code = 3023330864) 4.0 mg/dL 2.5-5.0 Lab Interpretation (test code = Normal 24348-5) [facility] (NA, K, CL, CO2, GLUCOSE, BUN, CREATININE, CA)2021-10-18 09:49:57 Test Item Value Reference Range Interpretation Comments NA (test code = 141 mmol/L 135-145 9010490346) K (test code = 4.9 mmol/L 3.5-5.0 2992996213) CL (test code = 107 mmol/L 98-108 7589639541) CO2 TOTAL (test code = 26 mmol/L 23-31 6897692107) AGAP (test code = 2-16 3943814750) BUN (test code = 30 mg/dL 7-23 H 8197640778) GLUCOSE (test code = 166 mg/dL 70-110 H 4805191869) CREATININE (test code = 0.76 mg/dL 0.50-1.04 6328011928) CALCIUM (test code = 8.2 mg/dL 8.6-10.6 L 1657237945) eGFR (test code = mL/min/1.73m2 2498345786) LUCILLE (test code = LUCILLE) Association of [...] tests). Lab Interpretation Abnormal (test code = 45538-1) [facility] 09:49:57 Test Item Value Reference Range Interpretation Comments MAGNESIUM (test code = 5264921973) 3.0 mg/dL 1.7-2.4 H Lab Interpretation (test code = Abnormal 48890-5) [facility]-15 09:49:57 Test Item Value Reference Range Interpretation Comments PHOSPHORUS (test code = 5478832496) 4.0 mg/dL 2.5-5.0 Lab Interpretation (test code = Normal 66436-2) [facility]udaHIV [facility]/2 AG-AB WITH [id number] 02:31:06 Test Item Value Reference Range Interpretation Comments HIV Negative Negative Semi-quantitative (test code = 82217-1) LUCILLE (test code = Non-reactive for HIV-1 LUCILLE) antigen and HIV-1/HIV-2 antibodies. ?No laboratory evidence of HIV infection. ?Repeat in 2-4 weeks if acute HIV infection is suspected. [facility] AG-AB WITH [id number] 02:31:06 Test Item Value Reference Range Interpretation Comments HIV Negative Negative Semi-quantitative (test code = 45753-1) LUICLLE (test code = Non-reactive for HIV-1 LUCILLE) antigen and HIV-1/HIV-2 antibodies. ?No laboratory evidence of HIV infection. ?Repeat in 2-4 weeks if acute HIV infection is suspected. [facility] METABOLIC PANEL (NA, K, CL, CO2, GLUCOSE, BUN, CREATININE, CA)2021-10-18 01:11:26 Test Item Value Reference Range Interpretation Comments NA (test code = 141 mmol/L 135-145 6977820755) K (test code = 4.6 mmol/L 3.5-5.0 2095254401) CL (test code = 106 mmol/L 98-108 7861293155) CO2 TOTAL (test code = 26 mmol/L 23-31 2562750736) AGAP (test code = 2-16 9599064568) BUN (test code = 28 mg/dL 7-23 H 6173119579) GLUCOSE (test code = 180 mg/dL 70-110 H 1004105658) CREATININE (test code = 0.82 mg/dL 0.50-1.04 6156831811) CALCIUM (test code = 8.3 mg/dL 8.6-10.6 L 5926267715) eGFR (test code = mL/min/1.73m2 2560371750) LUCILLE (test code = LUCILLE) Association of [...] tests). Lab Interpretation Abnormal (test code = 65036-0) [facility] METABOLIC PANEL (NA, K, CL, CO2, GLUCOSE, BUN, CREATININE, CA)2021-10-18 01:11:26 Test Item Value Reference Range Interpretation Comments NA (test code = 141 mmol/L 135-145 5893207764) K (test code = 4.6 mmol/L 3.5-5.0 9515551202) CL (test code = 106 mmol/L 98-108 2648697762) CO2 TOTAL (test code = 26 mmol/L 23-31 5679897975) AGAP (test code = 2-16 9291615088) BUN (test code = 28 mg/dL 7-23 H 8940272234) GLUCOSE (test code = 180 mg/dL 70-110 H 4079305543) CREATININE (test code = 0.82 mg/dL 0.50-1.04 8324973984) CALCIUM (test code = 8.3 mg/dL 8.6-10.6 L 2069616873) eGFR (test code = mL/min/1.73m2 8988078649) LUCILLE (test code = LUCILLE) Association of [...] tests). Lab Interpretation Abnormal (test code = 98760-9) [facility]uda[facility] [id number] 22:06:03 Test Item Value Reference Range Interpretation Comments NT-proBNP (test code 250 pg/mL See_Comment H [Autom ated = 4160535852) message] The system which generated this result transmitted reference range : <=125. The reference range was not used to interpret this result as normal/abnormal . LUCILLE (test code = LUCILLE) Biotin has been reported to cause a negative bias, interpret results relative to patient's use of biotin. Lab Interpretation Abnormal (test code = 14216-9) [facility]uda[facility] [id number] 22:06:03 Test Item Value Reference Range Interpretation Comments NT-proBNP (test code 250 pg/mL See_Comment H [Autom ated = 5131241547) message] The system which generated this result transmitted reference range : <=125. The reference range was not used to interpret this result as normal/abnormal . LUCILLE (test code = LUCILLE) Biotin has been reported to cause a negative bias, interpret results relative to patient's use of biotin. Lab Interpretation Abnormal (test code = 07453-9) [facility]udaABG+COOX+NA+K+GLU+CA2+2021-10-17 21:42:22 Test Item Value Reference Range Interpretation Comments PH (test code = 2) 7.35-7.45 PCO2 (test code = See_Comment [Automate d message] 0355754891) The system [employer] generated this result transmit britney reference range : 35 - 45 mmHg. The reference range was not used to interpret this result as normal/abnormal . PO2 (test code = See_Comment H [Automated message] 6358344945) The system [employer] generated this result transmit britney reference range : 80 - 100 mmHg. The reference range was not used to interpret this result as normal/abnormal . HCO3 (test code = See_Comment [Automate d message] 6577215848) The system [employer] generated this result transmit britney reference range : 22 - 26 mEq/L. The reference range was not used to interpret this result as normal/abnormal . BE (test code = See_Comment [Automated message] 4553493049) The system [employer] generated this result transmit britney reference range : -3.0 - 3.0 mEq/ L. The reference r nicholas was not used to interpret this result as normal/abnormal . THB (test code = 13.0 g/dL 12.0-16.0 8871415933) %O2HB (test code = 98.9 % 94.0-99.0 5312720326) %COHB ART (test code = 0.3 % 0.0-1.5 6981788106) %METHB ART (test code = 0.0 % 0.4-1.5 L 4676957708) VOL%O2 ART (test code = 18.5 % 15.0-23.0 4656963827) NA (test code = 139 mmol/L 135-145 5599892474) K+ (test code = 4.6 mmol/L 3.5-5.0 2059829500) AC CA IONZ (test code = 4.50 mg/dL 4.50-5.30 7361854916) GLUCOSE (test code = 166 mg/dL 70-110 H 1199461768) Lab Interpretation Abnormal (test code = 49372-6) [facility]uda[facility]G+COOX+NA+K+GLU+CA2+2021-10-17 21:42:22 Test Item Value Reference Range Interpretation Comments PH (test code = 2) 7.35-7.45 PCO2 (test code = See_Comment [Automate d message] 2329803291) The system [employer] generated this result transmit britney reference range : 35 - 45 mmHg. The reference range was not used to interpret this result as normal/abnormal . PO2 (test code = See_Comment H [Automated message] 7461093980) The system [employer] generated this result transmit britney reference range : 80 - 100 mmHg. The reference range was not used to interpret this result as normal/abnormal . HCO3 (test code = See_Comment [Automate d message] 4174740071) The system [employer] generated this result transmit britney reference range : 22 - 26 mEq/L. The reference range was not used to interpret this result as normal/abnormal . BE (test code = See_Comment [Automated message] 5585703350) The system [employer] generated this result transmit britney reference range : -3.0 - 3.0 mEq/ L. The reference r nicholas was not used to interpret this result as normal/abnormal . THB (test code = 13.0 g/dL 12.0-16.0 0817430742) %O2HB (test code = 98.9 % 94.0-99.0 6673789727) %COHB ART (test code = 0.3 % 0.0-1.5 0579188435) %METHB ART (test code = 0.0 % 0.4-1.5 L 7462173837) VOL%O2 ART (test code = 18.5 % 15.0-23.0 6545893519) NA (test code = 139 mmol/L 135-145 0851680141) K+ (test code = 4.6 mmol/L 3.5-5.0 3470250801) AC CA IONZ (test code = 4.50 mg/dL 4.50-5.30 2961411135) GLUCOSE (test code = 166 mg/dL 70-110 H 9044786574) Lab Interpretation Abnormal (test code = 87682-6) [facility] WITH [id number] 11:01:03 Test Item Value Reference Range Interpretation Comments WBC (test code = See_Comment H [Automated 8390-2) message] The system which generated this result [...] RDW-SD (test code = 44.5 fL 39.0-49.9 23823-0) RDW-CV (test code = 14.1 % 12.0-15.5 788-0) PLT (test code = See_Comment [Automated 777-3) message] The system which generated this result transmit britney reference range : 166 - 358 10*3/ ?L. The reference range was not u sed to interpret th is result as normal/abnormal . MPV (test code = 11.0 fL 9.5-12.9 94881-3) NRBC/100 WBC (test See_Comment [Automat ed code = 1796003617) message] The system which generated this result transmit britney reference range : 0.0 - 10.0 /100 WBCs. The reference range was not used to interpret this result as normal/abnormal . NRBC x10^3 (test code <0.01 See_Comment [Auto mated = 1559279283) message] The system which generated this result transmit britney reference range : 10*3/?L. The reference range was not used to interpret this result as normal/abnormal . GRAN MAT (NEUT) % 91.6 % (test code = 770-8) IMM GRAN % (test code 1.40 % = 8220412857) LYMPH % (test code = 5.5 % 736-9) MONO % (test code = 1.4 % 5905-5) EOS % (test code = 0.0 % 713-8) BASO % (test code = 0.1 % 706-2) GRAN MAT x10^3(ANC) 17.75 10*3/uL 1.88-7.09 H (test code = [id number]) IMM GRAN x10^3 (test 0.27 10*3/uL 0.00-0.06 H code = [id number]) LYMPH x10^3 (test code 1.06 10*3/uL 1.32-3.29 L = 731-0) MONO x10^3 (test code 0.28 10*3/uL 0.33-0.92 L = 742-7) EOS x10^3 (test code = <0.03 0.03-0.39 L 711-2) BASO x10^3 (test code <0.03 0.01-0.07 = 704-7) TOXIC CHANGES (test Present A code = 803-7) Lab Interpretation Abnormal (test code = 74463-0) [facility] [facility] WITH [id number] 11:01:03 Test Item Value Reference Range Interpretation Comments WBC (test code = See_Comment H [Automated 8206-2) message] The system which generated this result transmit britney reference range : 4.30 - 11.10 10*3/?L. The reference range was not used to interpret this result as normal/abnormal . RBC (test code = See_Comment [Automated 087-8) message] The system which generated this result [...] RDW-SD (test code = 44.5 fL 39.0-49.9 74001-5) RDW-CV (test code = 14.1 % 12.0-15.5 788-0) PLT (test code = See_Comment [Automated 777-3) message] The system which generated this result transmit britney reference range : 166 - 358 10*3/ ?L. The reference range was not u sed to interpret th is result as normal/abnormal . MPV (test code = 11.0 fL 9.5-12.9 81178-6) NRBC/100 WBC (test See_Comment [Automat ed code = 4858824484) message] The system which generated this result transmit britney reference range : 0.0 - 10.0 /100 WBCs. The reference range was not used to interpret this result as normal/abnormal . NRBC x10^3 (test code <0.01 See_Comment [Auto mated = 0744250691) message] The system which generated this result transmit britney reference range : 10*3/?L. The reference range was not used to interpret this result as normal/abnormal . GRAN MAT (NEUT) % 91.6 % (test code = 770-8) IMM GRAN % (test code 1.40 % = 0183335237) LYMPH % (test code = 5.5 % 736-9) MONO % (test code = 1.4 % 5905-5) EOS % (test code = 0.0 % 713-8) BASO % (test code = 0.1 % 706-2) GRAN MAT x10^3(ANC) 17.75 10*3/uL 1.88-7.09 H (test code = 8145190841) IMM GRAN x10^3 (test 0.27 10*3/uL 0.00-0.06 H code = 5643661453) LYMPH x10^3 (test code 1.06 10*3/uL 1.32-3.29 L = 731-0) MONO x10^3 (test code 0.28 10*3/uL 0.33-0.92 L = 742-7) EOS x10^3 (test code = <0.03 0.03-0.39 L 711-2) BASO x10^3 (test code <0.03 0.01-0.07 = 704-7) TOXIC CHANGES (test Present A code = 803-7) Lab Interpretation Abnormal (test code = 69579-3) [facility] METABOLIC PANEL (NA, K, CL, CO2, GLUCOSE, BUN, CREATININE, CA)2021-10-17 10:54:32 Test Item Value Reference Range Interpretation Comments NA (test code = 135 mmol/L 135-145 6854016292) K (test code = 5.2 mmol/L 3.5-5.0 H Slight 6812554273) hemolysis CL (test code = 101 mmol/L 98-108 4828980463) CO2 TOTAL (test code 27 mmol/L 23-31 = 2980882866) AGAP (test code = 2-16 0753481259) BUN (test code = 21 mg/dL 7-23 Slight 9686886794) hemolysis GLUCOSE (test code = 153 mg/dL 70-110 H 1277835552) CREATININE (test code 0.71 mg/dL 0.50-1.04 = 7146084615) CALCIUM (test code = 8.3 mg/dL 8.6-10.6 L 1651518758) eGFR (test code = mL/min/1.73m2 0109833311) LUCILLE (test code = LUCILLE) Association of [...] tests). Lab Interpretation Abnormal (test code = 34772-6) [facility] 10:54:32 Test Item Value Reference Range Interpretation Comments MAGNESIUM (test code = 4385615821) 2.2 mg/dL 1.7-2.4 Lab Interpretation (test code = Normal 04434-1) [facility] 10:54:32 Test Item Value Reference Range Interpretation Comments PHOSPHORUS (test code = 8256309746) 5.9 mg/dL 2.5-5.0 H Lab Interpretation (test code = Abnormal 21908-8) [facility] (NA, K, CL, CO2, GLUCOSE, BUN, CREATININE, CA)2021-10-17 10:54:32 Test Item Value Reference Range Interpretation Comments NA (test code = 135 mmol/L 135-145 5532473716) K (test code = 5.2 mmol/L 3.5-5.0 H Slight 9724432838) hemolysis CL (test code = 101 mmol/L 98-108 2325846844) CO2 TOTAL (test code 27 mmol/L 23-31 = 5161514237) AGAP (test code = 2-16 6667864586) BUN (test code = 21 mg/dL 7-23 Slight 7477622299) hemolysis GLUCOSE (test code = 153 mg/dL 70-110 H 1793781311) CREATININE (test code 0.71 mg/dL 0.50-1.04 = 2793001825) CALCIUM (test code = 8.3 mg/dL 8.6-10.6 L 4697102317) eGFR (test code = mL/min/1.73m2 9295179380) LUCILLE (test code = LUCILLE) Association of [...] tests). Lab Interpretation Abnormal (test code = 80821-5) [facility]-14 10:54:32 Test Item Value Reference Range Interpretation Comments MAGNESIUM (test code = 5161073011) 2.2 mg/dL 1.7-2.4 Lab Interpretation (test code = Normal 53476-0) [facility]22-[facility]-14 10:54:32 Test Item Value Reference Range Interpretation Comments PHOSPHORUS (test code = 3675861684) 5.9 mg/dL 2.5-5.0 H Lab Interpretation (test code = Abnormal 10894-6) [facility] [id number] 10:53:06 Test Item Value Reference Range Interpretation Comments ESR (test code = See_Comment H [Automated message] 1150164843) The system K[employer] generated this result transmitted ref erence range: 0 - 20 m m/HR. The reference r nicholas was not used to interpret this result as normal/abnor mal. Lab Interpretation (test Abnormal code = 83266-7) [facility] [id number] 10:53:06 Test Item Value Reference Range Interpretation Comments ESR (test code = See_Comment H [Automated message] 6015405141) The system [employer] generated this result transmitted ref erence range: 0 - 20 m m/HR. The reference r nicholas was not used to interpret this result as normal/abnor mal. Lab Interpretation (test Abnormal code = 82503-5) [facility]2022-02-13 11:13:05 Test Item Value Reference Range Interpretation Comments MAGNESIUM (test code = 8400863245) 2.3 mg/dL 1.7-2.4 Lab Interpretation (test code = Normal 14358-7) [facility]2022-[facility]-13 11:13:05 Test Item Value Reference Range Interpretation Comments PHOSPHORUS (test code = 1093413903) 3.4 mg/dL 2.5-5.0 Lab Interpretation (test code = Normal 43430-1) [facility]05 Test Item Value Reference Range Interpretation Comments MAGNESIUM (test code = 9319979852) 2.3 mg/dL 1.7-2.4 Lab Interpretation (test code = Normal 98800-6) [facility]2022-[facility]-13 11:13:05 Test Item Value Reference Range Interpretation Comments PHOSPHORUS (test code = 0214354559) 3.4 mg/dL 2.5-5.0 Lab Interpretation (test code = Normal 57698-6) [facility] (NA, K, CL, CO2, GLUCOSE, BUN, CREATININE, CA)2021-10-16 11:13:04 Test Item Value Reference Range Interpretation Comments NA (test code = 135 mmol/L 135-145 5152662744) K (test code = 4.6 mmol/L 3.5-5.0 0494759289) CL (test code = 102 mmol/L 98-108 6796238758) CO2 TOTAL (test code = 29 mmol/L 23-31 3392719696) AGAP (test code = 2-16 8234914171) BUN (test code = 24 mg/dL 7-23 H 0262512774) GLUCOSE (test code = 90 mg/dL 70-110 1926824915) CREATININE (test code = 0.87 mg/dL 0.50-1.04 7356537599) CALCIUM (test code = 8.0 mg/dL 8.6-10.6 L 3797590764) eGFR (test code = mL/min/1.73m2 9471142038) LUCILLE (test code = LUCILLE) Association of [...] tests). Lab Interpretation Abnormal (test code = 79940-1) [facility] METABOLIC PANEL (NA, K, CL, CO2, GLUCOSE, BUN, CREATININE, CA)2021-10-16 11:13:04 Test Item Value Reference Range Interpretation Comments NA (test code = 135 mmol/L 135-145 8214371129) K (test code = 4.6 mmol/L 3.5-5.0 9201945716) CL (test code = 102 mmol/L 98-108 6821355480) CO2 TOTAL (test code = 29 mmol/L 23-31 1191581090) AGAP (test code = 2-16 8862764283) BUN (test code = 24 mg/dL 7-23 H 9841900609) GLUCOSE (test code = 90 mg/dL 70-110 4329056145) CREATININE (test code = 0.87 mg/dL 0.50-1.04 6156161487) CALCIUM (test code = 8.0 mg/dL 8.6-10.6 L 2951706629) eGFR (test code = mL/min/1.73m2 3132749352) LUCILLE (test code = LUCILLE) Association of [...] tests). Lab Interpretation Abnormal (test code = 33012-6) [facility] + LACTIC [id number] 10:59:55 Test Item Value Reference Range Interpretation Comments PH (test code = 2) 7.35-7.45 PCO2 (test code = See_Comment [Automate d 9656773756) message] The sy stem which generated this result transmitted reference range : 35 - 45 mmHg. The reference range was not used to interpret this result as normal/abnormal . PO2 (test code = See_Comment L [Automated 0624394707) message] The sy stem which generated this result transmitted reference range : 80 - 100 mmHg. The reference range was not used to interpret this result as normal/abnormal . HCO3 (test code = See_Comment H [Automate d 4489999910) message] The sy stem which generated this result transmitted reference range : 22 - 26 mEq/L. The reference range was not used to interpret this result as normal/abnormal . BE (test code = See_Comment [Automated 5208122447) message] The sy stem which generated this result transmitted reference range : -3.0 - 3.0 mEq/ L. The reference r nicholas was not used to interpret this result as normal/abnormal . THB (test code = 13.7 g/dL 12.0-16.0 4793490033) %O2HB (test code = 86.3 % 94.0-99.0 L 2333373023) %COHB ART (test code = 0.1 % 0.0-1.5 3631265431) %METHB ART (test code = 0.1 % 0.4-1.5 L 0841380764) VOL%O2 ART (test code = 16.6 % 15.0-23.0 0237144859) NA (test code = 135 mmol/L 135-145 0681257538) K+ (test code = 4.6 mmol/L 3.5-5.0 3682436872) AC CA IONZ (test code = 4.70 mg/dL 4.50-5.30 7263797919) GLUCOSE (test code = 88 mg/dL 70-110 1564554681) LACTIC ACID (test code 1.41 mmol/L 0.50-2.20 QUES = 5036106190) Lab Interpretation Abnormal (test code = 42761-5) [facility] + LACTIC [id number] 10:59:55 Test Item Value Reference Range Interpretation Comments PH (test code = 2) 7.35-7.45 PCO2 (test code = See_Comment [Automate d 6271533076) message] The sy stem which generated this result transmitted reference range : 35 - 45 mmHg. The reference range was not used to interpret this result as normal/abnormal . PO2 (test code = See_Comment L [Automated 4011638170) message] The sy stem which generated this result transmitted reference range : 80 - 100 mmHg. The reference range was not used to interpret this result as normal/abnormal . HCO3 (test code = See_Comment H [Automate d 1938339592) message] The sy stem which generated this result transmitted reference range : 22 - 26 mEq/L. The reference range was not used to interpret this result as normal/abnormal . BE (test code = See_Comment [Automated 1186535990) message] The sy stem which generated this result transmitted reference range : -3.0 - 3.0 mEq/ L. The reference r nicholas was not used to interpret this result as normal/abnormal . THB (test code = 13.7 g/dL 12.0-16.0 9023383071) %O2HB (test code = 86.3 % 94.0-99.0 L 9464664212) %COHB ART (test code = 0.1 % 0.0-1.5 1316057593) %METHB ART (test code = 0.1 % 0.4-1.5 L 8470378436) VOL%O2 ART (test code = 16.6 % 15.0-23.0 7697078594) NA (test code = 135 mmol/L 135-145 6686958606) K+ (test code = 4.6 mmol/L 3.5-5.0 4501049157) AC CA IONZ (test code = 4.70 mg/dL 4.50-5.30 1590732400) GLUCOSE (test code = 88 mg/dL 70-110 1676831019) LACTIC ACID (test code 1.41 mmol/L 0.50-2.20 QUES = 3593854002) Lab Interpretation Abnormal (test code = 89521-0) [facility] WITH [id number] 10:54:01 Test Item Value Reference Range Interpretation [...] RDW-SD (test code = 47.0 fL 39.0-49.9 09394-6) RDW-CV (test code = 14.6 % 12.0-15.5 788-0) PLT (test code = See_Comment [Automated 777-3) message] The system which generated this result transmit britney reference range : 166 - 358 10*3/ ?L. The reference range was not u sed to interpret th is result as normal/abnormal . MPV (test code = 10.5 fL 9.5-12.9 77998-2) NRBC/100 WBC (test See_Comment [Automat ed code = 3808742304) message] The system which generated this result transmit britney reference range : 0.0 - 10.0 /100 WBCs. The reference range was not used to interpret this result as normal/abnormal . NRBC x10^3 (test code See_Comment [Auto mated = 3462254793) message] The system which generated this result transmit britney reference range : 10*3/?L. The reference range was not used to interpret this result as normal/abnormal . GRAN MAT (NEUT) % 85.6 % (test code = 770-8) IMM GRAN % (test code 1.10 % = 0501937419) LYMPH % (test code = 9.7 % 736-9) MONO % (test code = 3.0 % 5905-5) EOS % (test code = 0.5 % 713-8) BASO % (test code = 0.1 % 706-2) GRAN MAT x10^3(ANC) 12.97 10*3/uL 1.88-7.09 H (test code = 2030470308) IMM GRAN x10^3 (test 0.16 10*3/uL 0.00-0.06 H code = 9646048240) LYMPH x10^3 (test code 1.47 10*3/uL 1.32-3.29 = 731-0) MONO x10^3 (test code 0.45 10*3/uL 0.33-0.92 = 742-7) EOS x10^3 (test code = 0.08 10*3/uL 0.03-0.39 711-2) BASO x10^3 (test code <0.03 0.01-0.07 = 704-7) Lab Interpretation Abnormal (test code = 71301-6) [facility] WITH [id number] 10:54:01 Test Item Value Reference Range Interpretation [...] RDW-SD (test code = 47.0 fL 39.0-49.9 56088-4) RDW-CV (test code = 14.6 % 12.0-15.5 788-0) PLT (test code = See_Comment [Automated 777-3) message] The system which generated this result transmit britney reference range : 166 - 358 10*3/ ?L. The reference range was not u sed to interpret th is result as normal/abnormal . MPV (test code = 10.5 fL 9.5-12.9 81663-4) NRBC/100 WBC (test See_Comment [Automat ed code = 6675315890) message] The system which generated this result transmit britney reference range : 0.0 - 10.0 /100 WBCs. The reference range was not used to interpret this result as normal/abnormal . NRBC x10^3 (test code See_Comment [Auto mated = 3902138904) message] The system which generated this result transmit britney reference range : 10*3/?L. The reference range was not used to interpret this result as normal/abnormal . GRAN MAT (NEUT) % 85.6 % (test code = 770-8) IMM GRAN % (test code 1.10 % = 2484896963) LYMPH % (test code = 9.7 % 736-9) MONO % (test code = 3.0 % 5905-5) EOS % (test code = 0.5 % 713-8) BASO % (test code = 0.1 % 706-2) GRAN MAT x10^3(ANC) 12.97 10*3/uL 1.88-7.09 H (test code = 7231923694) IMM GRAN x10^3 (test 0.16 10*3/uL 0.00-0.06 H code = 7181476391) LYMPH x10^3 (test code 1.47 10*3/uL 1.32-3.29 = 731-0) MONO x10^3 (test code 0.45 10*3/uL 0.33-0.92 = 742-7) EOS x10^3 (test code = 0.08 10*3/uL 0.03-0.39 711-2) BASO x10^3 (test code <0.03 0.01-0.07 = 704-7) Lab Interpretation Abnormal (test code = 15778-2) [facility] [id number] 23:24:07 Test Item Value Reference Range Interpretation Comments CRP (test code = 0254542956) 22.1 mg/dL <1.0 H Lab Interpretation (test code = Abnormal 40603-5) [facility] [id number] 23:24:07 Test Item Value Reference Range Interpretation Comments CRP (test code = 2163354000) 22.1 mg/dL <1.0 H Lab Interpretation (test code = Abnormal 21658-9) [facility] [id number] 23:21:42 Test Item Value Reference Interpretation Comments Range TROPONIN I (test 0.003 ng/mL See_Comment [Automated code = 2141594707) message] The system which generated this result [...] biotin. Lab Interpretation Normal (test code = 96907-5) [facility] [id number] 23:21:42 Test Item Value Reference Interpretation Comments Range TROPONIN I (test 0.003 ng/mL See_Comment [Automated code = 1916068858) message] The system which generated this result [...] biotin. Lab Interpretation Normal (test code = 40823-0) [facility] METABOLIC PANEL (NA, K, CL, CO2, GLUCOSE, BUN, CREATININE, CA)2021-10-15 23:12:40 Test Item Value Reference Range Interpretation Comments NA (test code = 136 mmol/L 135-145 8039036631) K (test code = 4.8 mmol/L 3.5-5.0 4762963711) CL (test code = 104 mmol/L 98-108 9302320676) CO2 TOTAL (test code = 26 mmol/L 23-31 8149938686) AGAP (test code = 2-16 0750208668) BUN (test code = 22 mg/dL 7-23 3587235403) GLUCOSE (test code = 114 mg/dL 70-110 H 7981588257) CREATININE (test code = 0.77 mg/dL 0.50-1.04 1252463201) CALCIUM (test code = 8.2 mg/dL 8.6-10.6 L 4921747273) eGFR (test code = mL/min/1.73m2 8587055028) LUCILLE (test code = LUCILLE) Association of [...] tests). Lab Interpretation Abnormal (test code = 11862-4) [facility] METABOLIC PANEL (NA, K, CL, CO2, GLUCOSE, BUN, CREATININE, CA)2021-10-15 23:12:40 Test Item Value Reference Range Interpretation Comments NA (test code = 136 mmol/L 135-145 9341097140) K (test code = 4.8 mmol/L 3.5-5.0 7627323204) CL (test code = 104 mmol/L 98-108 1037344497) CO2 TOTAL (test code = 26 mmol/L 23-31 6659209785) AGAP (test code = 2-16 3943577266) BUN (test code = 22 mg/dL 7-23 8145579647) GLUCOSE (test code = 114 mg/dL 70-110 H 1426215531) CREATININE (test code = 0.77 mg/dL 0.50-1.04 8748969816) CALCIUM (test code = 8.2 mg/dL 8.6-10.6 L 1208334698) eGFR (test code = mL/min/1.73m2 5575932565) LUCILLE (test code = LUCILLE) Association of [...] tests). Lab Interpretation Abnormal (test code = 17302-8) [facility] [id number] 21:55:57 Test Item Value Reference Interpretation Comments Range TROPONIN I (test 0.003 ng/mL See_Comment [Automated code = 8878850774) message] The system which generated this result [...] biotin. Lab Interpretation Normal (test code = 09416-0) [facility] [id number] 21:55:57 Test Item Value Reference Interpretation Comments Range TROPONIN I (test 0.003 ng/mL See_Comment [Automated code = 2507672414) message] The system which generated this result [...] biotin. Lab Interpretation Normal (test code = 92210-9) [facility]2022-[facility]-12 19:07:46 Test Item Value Reference Range Interpretation Comments Procalcitonin (test 0.15 ng/mL <0.08 H code = 8914822948) LUCILLE (test code = LUCILLE) INTERPRETATION OF [...] lung abscess/empyema. For further information please refer to:[email or web address] Lab Interpretation Abnormal (test code = 41839-8) [facility]2022-02-12 19:07:46 Test Item Value Reference Range Interpretation Comments Procalcitonin (test 0.15 ng/mL <0.08 H code = 6670795380) LUCILLE (test code = LUCILLE) INTERPRETATION OF [...] lung abscess/empyema. For further information please refer to:[email or web address] Lab Interpretation Abnormal (test code = 06745-7) [facility]uda[facility]-TERMINAL [id number] 18:31:24 Test Item Value Reference Range Interpretation Comments NT-proBNP (test code 43 pg/mL See_Comment [Autom ated = 4683083036) message] The system which generated this result transmitted reference range : <=125. The reference range was not used to interpret this result as normal/abnormal . LUCILLE (test code = LUCILLE) Biotin has been reported to cause a negative bias, interpret results relative to patient's use of biotin. Lab Interpretation Normal (test code = 49463-6) [facility]uda[facility]TERMIN[facility] [id number] 18:31:24 Test Item Value Reference Range Interpretation Comments NT-proBNP (test code 43 pg/mL See_Comment [Autom ated = 9115169945) message] The system which generated this result transmitted reference range : <=125. The reference range was not used to interpret this result as normal/abnormal . LUCILLE (test code = LUCILLE) Biotin has been reported to cause a negative bias, interpret results relative to patient's use of biotin. Lab Interpretation Normal (test code = 83883-1) [facility]udaProcalcitonin2022-02-12 09:17:58 Test Item Value Reference Range Interpretation Comments Procalcitonin (test 0.15 ng/mL <0.08 H code = 6324397488) LUCILLE (test code = LUCILLE) INTERPRETATION OF [...] lung abscess/empyema. For further information please refer to:[email or web address] Lab Interpretation Abnormal (test code = 41640-7) [facility]uda[facility]cal[facility]onin2022-02-12 09:17:58 Test Item Value Reference Range Interpretation Comments Procalcitonin (test 0.15 ng/mL <0.08 H code = 9973341759) LUCILLE (test code = LUCILLE) INTERPRETATION OF [...] lung abscess/empyema. For further information please refer to:[email or web address] Lab Interpretation Abnormal (test code = 52346-3) [facility] METABOLIC PANEL (NA, K, CL, CO2, GLUCOSE, BUN, CREATININE, CA)2021-10-15 08:36:11 Test Item Value Reference Range Interpretation Comments NA (test code = 139 mmol/L 135-145 4568905815) K (test code = 5.5 mmol/L 3.5-5.0 H Slight 0105778030) hemolysis CL (test code = 104 mmol/L 98-108 6284819404) CO2 TOTAL (test code 29 mmol/L 23-31 = 8830929914) AGAP (test code = 2-16 9547898096) BUN (test code = 17 mg/dL 7-23 Slight 9820766046) hemolysis GLUCOSE (test code = 131 mg/dL 70-110 H 1014020235) CREATININE (test code 0.77 mg/dL 0.50-1.04 = 0272808978) CALCIUM (test code = 8.5 mg/dL 8.6-10.6 L 9386400435) eGFR (test code = mL/min/1.73m2 7747348443) LUCILLE (test code = LUCILLE) Association of [...] tests). Lab Interpretation Abnormal (test code = 61498-2) [facility]udaMagensium [id number] 08:36:11 Test Item Value Reference Range Interpretation Comments MAGNESIUM (test code = 8985184458) 2.4 mg/dL 1.7-2.4 Lab Interpretation (test code = Normal 64894-6) [facility] (NA, K, CL, CO2, GLUCOSE, BUN, CREATININE, CA)2021-10-15 08:36:11 Test Item Value Reference Range Interpretation Comments NA (test code = 139 mmol/L 135-145 9276253496) K (test code = 5.5 mmol/L 3.5-5.0 H Slight 3145184833) hemolysis CL (test code = 104 mmol/L 98-108 2292178324) CO2 TOTAL (test code 29 mmol/L 23-31 = 6254716694) AGAP (test code = 2-16 9124249647) BUN (test code = 17 mg/dL 7-23 Slight 8154547360) hemolysis GLUCOSE (test code = 131 mg/dL 70-110 H 0762155501) CREATININE (test code 0.77 mg/dL 0.50-1.04 = 5945462062) CALCIUM (test code = 8.5 mg/dL 8.6-10.6 L 4483006783) eGFR (test code = mL/min/1.73m2 9604314364) LUCILLE (test code = LUCILLE) Association of [...] tests). Lab Interpretation Abnormal (test code = 81143-4) [facility]uda[facility] [id number] 08:36:11 Test Item Value Reference Range Interpretation Comments MAGNESIUM (test code = 3096905048) 2.4 mg/dL 1.7-2.4 Lab Interpretation (test code = Normal 39344-3) [facility] BudaTroponin [id number] 08:21:08 Test Item Value Reference Interpretation Comments Range TROPONIN I (test 0.005 ng/mL See_Comment [Automated code = 4309172173) message] The system which generated this result [...] biotin. Lab Interpretation Normal (test code = 86655-1) [facility] BudaTroponin [id number] 08:21:08 Test Item Value Reference Interpretation Comments Range TROPONIN I (test 0.005 ng/mL See_Comment [Automated code = 7196883789) message] The system which generated this result [...] biotin. Lab Interpretation Normal (test code = 06115-3) [facility] WITH [id number] 07:37:26 Test Item Value Reference Range Interpretation Comments WBC (test code = See_Comment H [Automated 3372-2) message] The system which generated this result transmit britney reference range : 4.30 - 11.10 10*3/?L. The reference range was not used to interpret this result as normal/abnormal . RBC (test code = See_Comment [Automated 636-8) message] The system which generated this result [...] RDW-SD (test code = 47.4 fL 39.0-49.9 43863-4) RDW-CV (test code = 14.6 % 12.0-15.5 788-0) PLT (test code = See_Comment [Automated 777-3) message] The system which generated this result transmit britney reference range : 166 - 358 10*3/ ?L. The reference range was not u sed to interpret th is result as normal/abnormal . MPV (test code = 11.1 fL 9.5-12.9 56783-1) NRBC/100 WBC (test See_Comment [Automat ed code = 5330437661) message] The system which generated this result transmit britney reference range : 0.0 - 10.0 /100 WBCs. The reference range was not used to interpret this result as normal/abnormal . NRBC x10^3 (test code <0.01 See_Comment [Auto mated = [id number]) message] The system which generated this result transmit britney reference range : 10*3/?L. The reference range was not used to interpret this result as normal/abnormal . GRAN MAT (NEUT) % 92.0 % (test code = 770-8) IMM GRAN % (test code 1.10 % = 8431132650) LYMPH % (test code = 5.0 % 736-9) MONO % (test code = 1.8 % 5905-5) EOS % (test code = 0.0 % 713-8) BASO % (test code = 0.1 % 706-2) GRAN MAT x10^3(ANC) 20.65 10*3/uL 1.88-7.09 H (test code = 2872722442) IMM GRAN x10^3 (test 0.25 10*3/uL 0.00-0.06 H code = 5548564551) LYMPH x10^3 (test code 1.13 10*3/uL 1.32-3.29 L = 731-0) MONO x10^3 (test code 0.40 10*3/uL 0.33-0.92 = 742-7) EOS x10^3 (test code = <0.03 0.03-0.39 L 711-2) BASO x10^3 (test code 0.03 10*3/uL 0.01-0.07 = 704-7) Lab Interpretation Abnormal (test code = 08240-3) [facility] WITH [id number] 07:37:26 Test Item Value Reference Range Interpretation [...] RDW-SD (test code = 47.4 fL 39.0-49.9 95130-8) RDW-CV (test code = 14.6 % 12.0-15.5 788-0) PLT (test code = See_Comment [Automated 777-3) message] The system which generated this result transmit britney reference range : 166 - 358 10*3/ ?L. The reference range was not u sed to interpret th is result as normal/abnormal . MPV (test code = 11.1 fL 9.5-12.9 37951-5) NRBC/100 WBC (test See_Comment [Automat ed code = 3161387401) message] The system which generated this result transmit britney reference range : 0.0 - 10.0 /100 WBCs. The reference range was not used to interpret this result as normal/abnormal . NRBC x10^3 (test code <0.01 See_Comment [Auto mated = 3909239155) message] The system which generated this result transmit britney reference range : 10*3/?L. The reference range was not used to interpret this result as normal/abnormal . GRAN MAT (NEUT) % 92.0 % (test code = 770-8) IMM GRAN % (test code 1.10 % = 9319971200) LYMPH % (test code = 5.0 % 736-9) MONO % (test code = 1.8 % 5905-5) EOS % (test code = 0.0 % 713-8) BASO % (test code = 0.1 % 706-2) GRAN MAT x10^3(ANC) 20.65 10*3/uL 1.88-7.09 H (test code = 0071655047) IMM GRAN x10^3 (test 0.25 10*3/uL 0.00-0.06 H code = 7670999212) LYMPH x10^3 (test code 1.13 10*3/uL 1.32-3.29 L = 731-0) MONO x10^3 (test code 0.40 10*3/uL 0.33-0.92 = 742-7) EOS x10^3 (test code = <0.03 0.03-0.39 L 711-2) BASO x10^3 (test code 0.03 10*3/uL 0.01-0.07 = 704-7) Lab Interpretation Abnormal (test code = 78041-7) [facility]CA2[facility]21-10-15 07:28:14 Test Item Value Reference Range Interpretation Comments PH (test code = 2) 7.35-7.45 PCO2 (test code = See_Comment [Automate d message] 8473457156) The system [employer] generated this result transmit britney reference range : 35 - 45 mmHg. The reference range was not used to interpret this result as normal/abnormal . PO2 (test code = See_Comment H [Automated message] 6431765106) The system [employer] generated this result transmit britney reference range : 80 - 100 mmHg. The reference range was not used to interpret this result as normal/abnormal . HCO3 (test code = See_Comment [Automate d message] 7898505486) The system [employer] generated this result transmit britney reference range : 22 - 26 mEq/L. The reference range was not used to interpret this result as normal/abnormal . BE (test code = See_Comment [Automated message] 1805266335) The system [employer] generated this result transmit britney reference range : -3.0 - 3.0 mEq/ L. The reference r nicholas was not used to interpret this result as normal/abnormal . THB (test code = 13.1 g/dL 12.0-16.0 3810752498) %O2HB (test code = 98.7 % 94.0-99.0 1790944688) %COHB ART (test code = 0.4 % 0.0-1.5 8391299674) %METHB ART (test code = 0.0 % 0.4-1.5 L 5164115784) VOL%O2 ART (test code = 18.5 % 15.0-23.0 QUES 5970700074) NA (test code = 138 mmol/L 135-145 8401026729) K+ (test code = 5.0 mmol/L 3.5-5.0 5062113067) AC CA IONZ (test code = 4.50 mg/dL 4.50-5.30 0687816228) GLUCOSE (test code = 138 mg/dL 70-110 H 0242786483) Lab Interpretation Abnormal (test code = 66698-2) [facility]+GLU+CA2+2021-10-15 07:28:14 Test Item Value Reference Range Interpretation Comments PH (test code = 2) 7.35-7.45 PCO2 (test code = See_Comment [Automate d message] 4496079645) The system [employer] generated this result transmit britney reference range : 35 - 45 mmHg. The reference range was not used to interpret this result as normal/abnormal . PO2 (test code = See_Comment H [Automated message] 0310645858) The system [employer] generated this result transmit britney reference range : 80 - 100 mmHg. The reference range was not used to interpret this result as normal/abnormal . HCO3 (test code = See_Comment [Automate d message] 0481251306) The system [employer] generated this result transmit britney reference range : 22 - 26 mEq/L. The reference range was not used to interpret this result as normal/abnormal . BE (test code = See_Comment [Automated message] 0107763231) The system [employer] h generated this result transmit britney reference range : -3.0 - 3.0 mEq/ L. The reference r nicholas was not used to interpret this result as normal/abnormal . THB (test code = 13.1 g/dL 12.0-16.0 8230681934) %O2HB (test code = 98.7 % 94.0-99.0 7163638304) %COHB ART (test code = 0.4 % 0.0-1.5 3863437663) %METHB ART (test code = 0.0 % 0.4-1.5 L 8481513721) VOL%O2 ART (test code = 18.5 % 15.0-23.0 QUES 9536033716) NA (test code = 138 mmol/L 135-145 2334631144) K+ (test code = 5.0 mmol/L 3.5-5.0 0674341018) AC CA IONZ (test code = 4.50 mg/dL 4.50-5.30 4251075507) GLUCOSE (test code = 138 mg/dL 70-110 H 7942763456) Lab Interpretation Abnormal (test code = 35346-4) [facility] [id number] 00:00:00 Test Item Value Reference Range Interpretation Comments DEB SPECIES (test code = ) NEGATIVE G. VAGINALIS (test code = 47754) POSITIVE T. VAGINALIS (test code = 59614) NEGATIVE VAGINAL PATHOGENS DNA [id number] 00:00:00 Test Item Value Reference Range Interpretation Comments DEB SPECIES (test code = ) NEGATIVE G. VAGINALIS (test code = 22418) POSITIVE T. VAGINALIS (test code = 98063) NEGATIVE GC AND CHLAMYDIA, AMPLIFIED, [id number] 00:00:00 Test Item Value Reference Range Interpretation Comments GONORRHEA, NAAT (test code = 24546) NEGATIVE CHLAMYDIA, NAAT (test code = 80119) NEGATIVE GC AND CHLAMYDIA, AMPLIFIED, [id number] 00:00:00 Test Item Value Reference Range Interpretation Comments GONORRHEA, NAAT (test code = 55700) NEGATIVE CHLAMYDIA, NAAT (test code = 51252) NEGATIVE HIV AB/AG COMBO RFLX [id number] 00:00:00 Test Item Value Reference Range Interpretation Comments HIV 1/2 4TH GEN, RFLX CONF (test NON-REACTIVE code = 3514) HIV AB/AG COMBO RFLX [id number] 00:00:00 Test Item Value Reference Range Interpretation Comments HIV 1/2 4TH GEN, RFLX CONF (test NON-REACTIVE code = 3514) [id number] 00:00:00 Test Item Value Reference Range Interpretation Comments RPR RESULT (test code = NON-REACTIVE 3501) RPR TITER (test code = 3500) NOT INDIC. TITER [id number] 00:00:00 Test Item Value Reference Range Interpretation Comments RPR RESULT (test code = NON-REACTIVE 3501) RPR TITER (test code = 3500) NOT INDIC. TITER [id number] 00:00:00 Test Item Value Reference Range Interpretation Comments RPR RESULT (test code = NON-REACTIVE 3501) RPR TITER (test code = 3500) NOT INDIC. TITER
[2022-06-17] MEDS ORDERED: ONDANSETRON 4 MG/2 ML VIAL ONE (18:54)
[2022-06-17] MEDS ORDERED: METHYLPREDNISOLONE 125 MG INJ ONE (18:54)
[2022-06-17] MEDS ORDERED: DIPHENHYDRAMINE 50 MG/ML VIAL ONE (18:54)
[2022-06-17] MEDS ORDERED: NA CHLORIDE 0.9% 1,000 ML ONE (18:55)
[2022-06-17 19:04] LABS: Absolute Lymphocytes (CBC) 2.1 K/uL (0.7-4.9); Hematocrit 35.3 % (36.0-45.0); Lymphocytes % 14.8 % (15.3-44.8); MCV 78.3 fL (80-100); RBC Red Blood Cell Count 4.51 M/uL (3.86-4.86)
[2022-06-17 19:21] LABS: Potassium 3.5 mmol/L (3.5-5.1); Troponin High Sensitivity 13.2 pg/mL (<58.9)
[2022-06-17 19:50] LABS: Anisocytosis 2+; Blood Morphology Comment NOTED (NOT SEEN); Platelet Estimate ADEQ; White Blood Cell Scan OK (OK)
[2022-06-17] MEDS ORDERED: HYDROCODONE/APAP 7.5/325 MG TAB ONE (20:01)
--- NOTE | 2022-06-17 20:03 | RAD REPORT ---
EXAM DESCRIPTION: CT - Chest For Pe Angio - 06/17/2022 7:53 pm CLINICAL HISTORY: sob COMPARISON: November 2021 TECHNIQUE: Dynamically enhanced axial 3 mm thick images of the chest were obtained during administra tion of <100> mL Isovue 370 IV contrast. Coronal and oblique reconstruction images were generated and reviewed. Exam utilizes a protocol for optimal evaluation of pulmonary arterial tree. Maximum intensity projections 3D imaging was utilized All CT scans are performed using dose optimization technique as appropriate and may include automated exposure control or mA/KV adjustment according to patient size. FINDINGS: A pulmonary embolus is not seen. A thoracic aortic aneurysm is not noted. A pleural effusion is not seen. A pericardial effusion is not seen. Chronic elevation right hemidiaphragm with mild chronic atelectasis Prominent left lobe of the liver IMPRESSION: Negative for a pulmonary embolism.
--- NOTE | 2022-06-17 20:03 | RAD REPORT ---
EXAM DESCRIPTION: Anton Single View06/17/2022 7:33 pm CLINICAL HISTORY: Shortness of breath COMPARISON: March 2022 FINDINGS: Chronic elevation right hemidiaphragm with mild right lower lobe atelectasis The left lung appears clear of acute infiltrate. The heart is normal size
[2022-06-17] MEDS ORDERED: MORPHINE 4 MG/ML SYR ONE (20:14)
[2022-06-17] MEDS ORDERED: ALBUTEROL 2.5 MG/3 ML NEB SOL ONE (21:17)
[2022-06-17] MEDS ORDERED: IPRATROPIUM BROM 0.5MG/2.5ML ONE (21:17)
--- NOTE | 2022-06-17 22:16 | ER ---
Nurse's Notes [facility] Name: Nancie Ordonez Age: 51 yrs Sex: Female : 1970 Arrival Date: 06/17/2022 Time: 18:22 Bed 2 Private MD: Diagnosis: Dyspnea;Headache Presentation: 06/17 18:25 Chief complaint: Patient states: SOB and headache x 3 days. Coronavirus screen: Client hb presents with at least one sign or symptom that may indicate coronavirus-19. Provider contacted for isolation considerations. Ebola Screen: No symptoms or risks identified at this time. Initial Sepsis Screen: Does the patient meet any 2 criteria?. Risk Assessment: Do you want to hurt yourself or someone else? Patient reports no desire to harm self or others. Onset of symptoms was June 14, 2022. 18:25 Method Of Arrival: Ambulatory hb 18:25 Acuity: DEEPALI 3 hb Historical: - Allergies: 18:27 Ibuprofen; hb 18:27 Naproxen; hb - Home Meds: 18:27 amlodipine oral [Active]; hb - PMHx: 18:27 Arthritis; GERD; Gout; Hypertension; hb - PSHx: 18:27 section; hernia repair; Neck sx; Right arm injury; hb Screenin:00 Abuse screen: Denies threats or abuse. Nutritional screening: No deficits noted. jb4 Tuberculosis screening: No symptoms or risk factors identified. Fall Risk None identified. Assessment: 19:10 General: Appears in no apparent distress. uncomfortable, Behavior is calm, cooperative. jb4 Pain: Complains of pain in headache Pain does not radiate. Pain currently is 10 out of 10 on a pain scale. Neuro: Level of Consciousness is awake, alert, obeys commands, Oriented to person, place, time, situation. Cardiovascular: Patient's skin is warm and dry. Respiratory: Airway is patent Respiratory effort is even, labored, Respiratory pattern is symmetrical, tachypnea. GI: No signs and/or symptoms were reported involving the gastrointestinal system. : No signs and/or symptoms were reported regarding the genitourinary system. EENT: No signs and/or symptoms were reported regarding the EENT system. Derm: Skin is intact, Skin is dry, Skin is normal, Skin temperature is warm. Musculoskeletal: Circulation, motion, and sensation intact. Range of motion: intact in all extremities. 20:00 Reassessment: Patient appears in no apparent distress at this time. Patient and/or jb4 family updated on plan of care and expected duration. Pain level reassessed. Pt reports that breathing feels easier and is not as bad as upon arrival to ED. Continues to report shortness of breath. 22:15 Reassessment: Patient appears in no apparent distress at this time. Patient and/or jb4 family updated on plan of care and expected duration. Pain level reassessed. Patient is alert, oriented x 3, equal unlabored respirations, skin warm/dry/pink. Vital Signs: 18:25 BP 143 / 82; Pulse 91; Resp 32; Temp 97.2; Pulse Ox 95% on R/A; Weight 89.81 kg; Height hb 5 ft. 3 in. (160.02 cm); Pain 9/10; 20:27 BP 132 / 86; Pulse 82; Resp 30; Pulse Ox 96% on R/A; jb4 21:00 BP 128 / 93; Pulse 84; Pulse Ox 97% on R/A; jb4 22:20 BP 129 / 91; Pulse 86; Resp 16; Pulse Ox 95% on R/A; jb4 18:25 Body Mass Index 35.07 (89.81 kg, 160.02 cm) hb ED Course: 18:22 Patient arrived in ED. as 18:27 Triage completed. hb 18:27 Pat Doherty FNP-C [facility]. kb 18:27 Shai Guzman MD is Attending Physician. kb 18:27 Arm band placed on. hb 18:42 Tiago Reyes, NICCI is Primary Nurse. bp 18:50 Inserted saline lock: 22 gauge in right forearm, using aseptic technique. Blood bp collected. 19:35 Chest Single View XRAY In Process Unspecified. EDMS 19:35 CT Chest For PE Angio In Process Unspecified. EDMS 22:36 No provider procedures requiring assistance completed. IV discontinued, intact, jb4 bleeding controlled, No redness/swelling at site. Pressure dressing applied. Administered Medications: 19:00 Drug: NS 0.9% 1000 ml Route: IV; Rate: 1000 ml; Site: right forearm; bp 20:00 Follow up: Response: No adverse reaction; Marked relief of symptoms; IV Status: jb4 Completed infusion; IV Intake: 1000ml 19:00 Drug: Benadryl (diphenhydrAMINE) 12.5 mg Route: IVP; Site: right forearm; bp 19:30 Follow up: Response: No adverse reaction; Marked relief of symptoms jb4 19:00 Drug: SOLU-Medrol (methylPrednisoLONE) 125 mg Route: IVP; Site: right forearm; bp 19:30 Follow up: Response: No adverse reaction jb4 19:00 Drug: Zofran (Ondansetron) 4 mg Route: IVP; Site: right forearm; bp 19:30 Follow up: Response: No adverse reaction; Marked relief of symptoms jb4 20:17 Not Given (Patient Refused): [place] (HYDROcodone-acetaminophen) (7.5 mg-325 mg) 1 tabs jb4 PO once 20:25 Drug: morphine 4 mg Route: IVP; Infused Over: 4 mins; Site: right forearm; jb4 21:00 Follow up: Response: No adverse reaction; Marked relief of symptoms jb4 21:22 Drug: Albuterol 2.5 mg Route: Inhalation; ke1 21:22 Drug: AtroVENT (ipratropium) Aerosol 0.5 mg Route: Inhalation; ke1 Medication: 21:00 VIS not applicable for this client. jb4 Intake: 20:00 IV: 1000ml; Total: 1000ml. jb4 Outcome: 22:15 Discharge ordered by . kb 22:36 Discharged to home via wheelchair, with family. jb4 22:36 Condition: stable 22:36 Discharge instructions given to patient, family, Instructed on discharge instructions, follow up and referral plans. Demonstrated understanding of instructions, follow-up care. 22:39 Patient left the ED. jb4 Signatures: Dispatcher [employer] EDMS Pat Doherty, RADHA PAUL-Sarah Duran Heather, RN RN hb Bryson, James, RN RN jb4 Tiago Reyes RN RN Padmaja Tapia RN RN ke1
--- NOTE | 2022-06-17 22:16 | EDPHYS ---
Physician Documentation [facility] Name: Nancie Ordonez Age: 51 yrs Sex: Female : 1970 Arrival Date: 06/17/2022 Time: 18:22 Bed 2 Private MD: ED Physician Shai Guzman HPI: 06/17 19:51 This 51 yrs old Black Female presents to ER via Ambulatory with complaints of Shortness kb Of Breath, Headache. 19:51 The patient has not recently seen a physician. kb 19:51 The patient has shortness of breath at rest. Onset: The symptoms/episode began/occurred kb today. Duration: The symptoms are continuous. The patient's shortness of breath is aggravated by nothing, is alleviated by nothing. Associated signs and symptoms: The patient has no apparent associated signs or symptoms. Severity of symptoms: At their worst the symptoms were moderate in the emergency department the symptoms are unchanged. The patient has not experienced similar symptoms in the past. pt reports shortness of breath that started today. States she has also had a headache for 3 days. Historical: - Allergies: 18:27 Ibuprofen; hb 18:27 Naproxen; hb - Home Meds: 18:27 amlodipine oral [Active]; hb - PMHx: 18:27 Arthritis; GERD; Gout; Hypertension; hb - PSHx: 18:27 section; hernia repair; Neck sx; Right arm injury; hb ROS: 19:50 Constitutional: Negative for fever, chills, and weight loss. kb 19:50 Respiratory: Positive for shortness of breath. 19:50 Neuro: Positive for headache. 19:50 All other systems are negative. Exam: 19:50 Constitutional: This is a well developed, well nourished patient who is awake, alert, kb and in no acute distress. Head/Face: Normocephalic, atraumatic. ENT: Moist Mucous membranes Chest/axilla: Normal chest wall appearance and motion. Cardiovascular: Regular rate and rhythm with a normal S1 and S2. No gallops, murmurs, or rubs. No pulse deficits. Abdomen/GI: Soft, non-tender. No distention Skin: Warm, dry with normal turgor. Normal color. MS/ Extremity: Pulses equal, no cyanosis. Neurovascular intact. Full, normal range of motion. Neuro: Awake and alert, GCS 15, oriented to person, place, time, and situation. Moves all extremities. Normal gait. Psych: Awake, alert, with orientation to person, place and time. Behavior, mood, and affect are within normal limits. 19:50 Respiratory: the patient does not display signs of respiratory distress, Respirations: labored breathing, that is mild, Breath sounds: are clear throughout. Vital Signs: 18:25 BP 143 / 82; Pulse 91; Resp 32; Temp 97.2; Pulse Ox 95% on R/A; Weight 89.81 kg; Height hb 5 ft. 3 in. (160.02 cm); Pain 9/10; 20:27 BP 132 / 86; Pulse 82; Resp 30; Pulse Ox 96% on R/A; jb4 21:00 BP 128 / 93; Pulse 84; Pulse Ox 97% on R/A; jb4 22:20 BP 129 / 91; Pulse 86; Resp 16; Pulse Ox 95% on R/A; jb4 18:25 Body Mass Index 35.07 (89.81 kg, 160.02 cm) hb MDM: 18:27 Patient medically screened. kb 19:51 Data reviewed: vital signs, nurses notes. Data interpreted: Pulse oximetry: on room air kb is 95 %. Interpretation: normal. 21:00 Counseling: I had a detailed discussion with the patient and/or guardian regarding: the kb historical points, exam findings, and any diagnostic results supporting the discharge/admit diagnosis, lab results, radiology results, the need for outpatient follow up, a family practitioner, to return to the emergency department if symptoms worsen or persist or if there are any questions or concerns that arise at home. 22:14 ED course: Symptoms resolved after treatment. kb 06/17 18:34 Order name: Flu; Complete Time: 19:23 kb 06/17 18:34 Order name: COVID-19 SARS RT PCR (Document "Date of Onset" if Symptomatic); Complete kb Time: :06/17 18:34 Order name: CBC with Diff; Complete Time: 19:51 kb 06/17 18:34 Order name: Basic Metabolic Panel; Complete Time: 19:23 kb 06/17 18:34 Order name: D-Dimer; Complete Time: 19:10 kb 06/17 18:34 Order name: Troponin HS; Complete Time: 19:23 kb 06/17 19:10 Order name: CBC Smear Scan; Complete Time: 19:51 EDMS 06/17 19:11 Order name: Chest Single View XRAY; Complete Time: 20:09 kb 06/17 19:11 Order name: CT Chest For PE Angio; Complete Time: 20:09 kb 06/17 18:34 Order name: EKG; Complete Time: 18:35 kb 06/17 18:34 Order name: EKG - Nurse/Tech; Complete Time: 19:01 kb Administered Medications: 19:00 Drug: NS 0.9% 1000 ml Route: IV; Rate: 1000 ml; Site: right forearm; bp 20:00 Follow up: Response: No adverse reaction; Marked relief of symptoms; IV Status: jb4 Completed infusion; IV Intake: 1000ml 19:00 Drug: Benadryl (diphenhydrAMINE) 12.5 mg Route: IVP; Site: right forearm; bp 19:30 Follow up: Response: No adverse reaction; Marked relief of symptoms jb4 19:00 Drug: SOLU-Medrol (methylPrednisoLONE) 125 mg Route: IVP; Site: right forearm; bp 19:30 Follow up: Response: No adverse reaction jb4 19:00 Drug: Zofran (Ondansetron) 4 mg Route: IVP; Site: right forearm; bp 19:30 Follow up: Response: No adverse reaction; Marked relief of symptoms jb4 20:17 Not Given (Patient Refused): [place] (HYDROcodone-acetaminophen) (7.5 mg-325 mg) 1 tabs jb4 PO once 20:25 Drug: morphine 4 mg Route: IVP; Infused Over: 4 mins; Site: right forearm; jb4 21:00 Follow up: Response: No adverse reaction; Marked relief of symptoms jb4 21:22 Drug: Albuterol 2.5 mg Route: Inhalation; ke1 21:22 Drug: AtroVENT (ipratropium) Aerosol 0.5 mg Route: Inhalation; ke1 Disposition Summary: 06/17/22 22:15 Discharge Ordered Location: Home kb Condition: Stable kb Diagnosis - Dyspnea kb - Headache kb Followup: kb - With: Emergency Department - When: As needed - Reason: Worsening of condition Followup: kb - With: Private Physician - When: 2 - 3 days - Reason: Recheck today's complaints, Continuance of care, Re-evaluation by your physician Discharge Instructions: - Discharge Summary Sheet kb - Shortness of Breath, Adult, [id number]-[id number] kb - General Headache Without Cause, [id number] kb Forms: - Medication Reconciliation Form kb - Thank You Letter kb - Antibiotic Education kb - Prescription Opioid Use kb Signatures: Dispatcher [employer] EDCT Pat Doherty, [employer]-C [employer]-Serene Leon RN RN Guzman Schwarz RN RN jb4 Tiago Reyes RN RN Padmaja Tapia RN RN ke1
[2022-06-17 22:43] VITALS: TEMP 97.2
[2022-06-17 22:46] VITALS: BP 129/91; O2SAT 95
--- NOTE | 2022-06-18 09:27 | EKG ---
Test Date: 2022-06-17 Test Time: 19:01:06 [employer] Consultant: ANANDA MEASUREMENT RESULTS: Intervals: Rate: 84 CO: 120 QRSD: 82 QT: 414 QTc: 489 [place]: P: 78 CO: 120 QRS: 78 T: 203 INTERPRETIVE STATEMENTS: Normal sinus rhythm Biatrial enlargement T wave abnormality, consider inferior ischemia T wave abnormality, consider anterolateral ischemia Prolonged QT Abnormal ECG Compared to ECG 04/02/2022 12:13:31 Prolonged QT interval now present T-wave abnormality still present Possible ischemia still present Electronically Signed On 06-18-22 09:26:45 CDT by Drake Blakely
== END 2022-06-17 22:39 | disposition home or self-care (01) ==
LOC: ER 18:20
DX: R06.00 Dyspnea, unspecified (principal); R51.9 Headache, unspecified; Z20.822 Contact with and (suspected) exposure to COVID-19; I10 Essential (primary) hypertension; Z88.6 Allergy status to analgesic agent
CPT/HCPCS: 96361; 93005; 85025; 80048; 36415; 85379; 84484; 87804 ×2; 71275; 71045; 96375; 96374; 99284; U0003; Q9967; J1200; J7030; J2930; J2405

== ENCOUNTER 2022-07-21 19:57 | Emergency (ER) | payer OTHER ==
--- OUTSIDE RECORDS SUMMARY | 2022-07-21 20:21 | XMS REPORT | Continuity of Care Document ---
:1970 Author Organization [facility] t Address [address] [place] [address] [place] [id number] Care Team Providers Name Role Phone Aldo Amador Primary Care Physician [phone] DR LINDSEY CAMERON Attending Clinician Unavailable ANAYA KLINE Attending Clinician Unavailable Jaden Siddiqui ENP Attending Clinician DR LORAINE MELO Attending Clinician Unavailable DR CHRISTIAN VITAL Attending Clinician Unavailable Doctor Unassigned, Merrill Attending Clinician Unavailable GABRIEL GARCIA Attending Clinician Unavailable Gabriel Garcia MD Attending Clinician WILMAR MADISON Attending Clinician Unavailable WILMAR MADISON Attending Clinician Unavailable , Adc Sleep Lab Bed Attending Clinician Unavailable Wilmar Madison MD Attending Clinician Only, Adc Test Attending Clinician Unavailable Sobeida Bagley Attending Clinician BRO ANN Attending Clinician Unavailable Seth PAUL, Bro Attending Clinician JADEN SIDDIQUI Attending Clinician Unavailable MAI DEL ROSARIO Attending Clinician Unavailable Mai Del Rosario DO Attending Clinician JACKLYN GUILLEN Attending Clinician Unavailable Jacklyn Guillen MD Attending Clinician Una GRAJEDA, Marjan Holt Attending Clinician GELY HERNANDEZ Attending Clinician Unavailable Christos Tovar MD Attending Clinician Mary YI, Gely Attending Clinician WILFRID PEARSON Attending Clinician Unavailable Maury Brush MD Attending Clinician TeWilfrid templeton DO Attending Clinician Evelin GRAJEDA, Any Fong Attending Clinician Unavailable FLASH KIMBALL Attending Clinician Unavailable Blanca Talavera MD Attending Clinician Josie YI, Samir Attending Clinician Faraz Parada MD Attending Clinician Flash Kimball MD Attending Clinician GABRIEL SHAIKH Attending Clinician Unavailable GABRIEL SHAIKH Attending Clinician Unavailable DR LINDSEY CAMERON Admitting Clinician Unavailable ANAYA KLINE Admitting Clinician Unavailable DR LORAINE MELO Admitting Clinician Unavailable DR CHRISTIAN VITAL Admitting Clinician Unavailable GABRIEL GARCIA Admitting Clinician Unavailable BRO ANN Admitting Clinician Unavailable JADEN SIDDIQUI Admitting Clinician Unavailable MAI DEL ROSARIO Admitting Clinician Unavailable JACKLYN GUILLEN Admitting Clinician Unavailable GELY HERNANDEZ Admitting Clinician Unavailable Mary YI, Gely Admitting Clinician TEWILFRID TEMPLETON Admitting Clinician Unavailable Teqwimreyna JIMENEZ Wilfrid Admitting Clinician FARAZ PARADA Admitting Clinician Unavailable Faraz Parada MD Admitting Clinician Payers Payer Name Policy Type Policy Number Effective Date Expiration Date Anjum Casillas1 [id number] 2022 00:00:00 ISABEL SILVESTRE FROM [id number] 2021 [facility] 00:00:00 Problems Condition Condition Condition Status Onset Resolution Last Treating Co mments Source Name Details Category Date Date Treatment Clinician Date SOB SOB Disease Active 2021-09 Univers (shortness (shortness 0-23 it y of of breath[place] [facility] Chest pain Chest pain Disease Active 2021-09 U nivers 0-22 ity of 00:00: [place] 00 Medical Branch Transient Transient Disease Active Uni vers alteration alteration 6-25 it y of of of 00:00: [place] awareness awareness 00 [facility] Transient Transient Disease Active Uni vers alteration alteration 6-25 it y of of of 00:00: [place] awareness awareness 00 [facility] Gastric Gastric Disease Active Univers ulcer ulcer 6-22 ity of 00:00: [place] 00 Medical Branch Pneumonia Pneumonia Disease Active Uni vers 4-04 ity of 00:00: [place] 00 Medical Branch Acute Acute Disease Active Univers asthma asthma 4-02 ity of exacerbati exacerbati 00:[place]: [place] 00 [place] Sepsis Sepsis Disease Active Univers [...] [place] y failure y failure 00 [facility] Chronic Chronic Disease Active Univers pain due pain due 2-04 ity of to injury to injury 00:[place] Dyslipidem Dyslipidem Disease Active U sofie ia ia 2-04 ity of 00:00: [place] [facility] Gastro-eso Gastro-eso Disease Active U sofie phageal phageal 2-04 ity of reflux reflux 00:00: [place] disease disease 00 Medical with with Branch esophagiti esophagiti s, with s, with bleeding bleeding Generalize Generalize Disease Active U sofie d anxiety d anxiety 2-04 ity of disorder disorder 00:00: [place] [facility] Pain of Pain of Disease Active Univers cervical cervical 2-04 ity of spine spine 00:00: [place] [facility] Depo-Prove Depo-Prove Disease Active U sofie ra ra 4-13 ity of contracept contracept 00:00[place] lloyd status lloyd status 00 Me dical Branch Eczema Eczema Disease Active Univers 8-13 ity of 00:00: [place] [facility] Essential Essential Disease Active Uni vers hypertensi hypertensi 8-13 it y of on on 00:00: [place] [facility] Back pain Back pain Disease Active Uni vers 2-06 ity of 00:00: [place] [facility] Allergies, Adverse Reactions, Alerts Allergy Allergy Status Severity Reaction(s) Onset Inactive Treating Comm ents Source Name Type Date Date Clinician IBUPROFE DRUG Active SOB 2021-09 Univers N-ACETAM 0-23 ity of INOPHEN 00:00: [place] [facility] Ibuprofe Propensi Active Shortness of 2021-09 Univers n-Acetam ty to Breath 0-23 ity of inophen adverse 00:00: [place] reaction 00 Medical s Branch Naproxen Propensi Active - Oral ty to 5-28 adverse 00:00: reaction 00 to drug SEAFOOD/ [...] y Drug) Naproxen Propensi Active ty to 10-25 adverse 00:00: reaction 00 to drug naproxen DA Active SV 0 [facility] 10-30 [place] 00:00: Orthope 00 dic [...] INGREDI 03-11 ity of 00:00: [place] 00 [facility] Branch Naproxen DA Active Unknown [facility] Ibuprofe DA Active Unknown [facility] Social History Social Habit Start Date Stop Date Quantity Comments [facility] Std Drinks [place] [facility] History [facility] o f Alcohol Binge [place] [facility] History [facility] o f Alcohol Frequency [facility] edical Branch Exposure to 2022-06-14 2022-06-24 Not sure University of SARS-CoV-2 (event) 00:00:00 19:46:00 [facility] Alcohol intake 2022-06-24 2022-06-24 Current drinker Unive rsity of 00:00:00 00:00:00 of alcohol [place] [facility] (finding) Branch Education 2021-10-15 2021-10-15 12 University of 00:00:00 00:00:00 [facility] Tobacco Comment 2021-10-15 2021-10-15 30 years ago Univers ity of 00:00:00 00:00:00 [facility] Cigarettes smoked 2021-10-15 2021-10-15 Univers ity of current (pack per 00:00:00 00:00:00 [place] ) - Reported Branch Cigarette 2021-10-15 2021-10-15 University of pack-years 00:00:00 00:00:00 [facility] Tobacco use and 2021-10-15 2021-10-15 Smokeless tobacco Un iversity of exposure 00:00:00 00:00:00 non-user [facility] Alcohol Comment 2016-12-14 2016-12-14 infrequent - Univers ity of 00:00:00 00:00:00 family parties, [place] Med ical wine, 12 oz/time Dawn History of tobacco 2001-12-14 Cigarette Smoker University of use 00:00:00 [facility] Sex Ass[birth year] At [birth year] Universit y of 00:00:00 00:00:00 [facility] Smoking Status Start Date Stop Date Source Ex-smoker 2021-10-15 00:00:00 2021-10-15 00:00:00 [facility] Medications Ordered Filled Start Stop Current Ordering Indication Dosage Frequency Signature Comments Components Source Medication Medication Date Date Medication? Clinician (SIG) Name Name celecoxib 2021-09- No 100mg Take 100 Un guillermina (CELEBREX) 0-24 10-24 mg by ity of 100 mg 06:18: 00:00 mouth 2 [place] capsule 50 :00 (two) [facility] daily with meals. amLODIPine 2021-09 No 10mg Take 10 mg Univers 10 mg 0-24 10-24 by mouth ity of tablet 06:18: 00:00 daily. [place] 50 :00 [facility] FLUoxetine 2021-09- No 10mg Take 10 mg Univers 10 mg 0-24 10-24 by mouth ity of capsule 06:18: 00:00 daily. [place] 50 :00 [facility] traMADoL 2021-09- No 100mg Take 100 Uni vers 100 mg 0-24 10-24 mg by ity of capsule 06:18: 00:00 mouth [place] 50 :00 every 6 Medical (six) Branch hours as needed. famotidine 2021-09 Yes 20mg 20 mg, Unive rs (PEPCID AC) 0-24 Oral, BID, it y of tablet 20 05:30: [place] mg 00 on Mon Medical 06/26/22 Branch at 0030, Until Discontinu ed, Routine ceFEPIme 2021-09- Yes 1000mg 1,000 mg, U nivers (MAXIPIME) 006-28 IV ity of 1,000 mg in 21:15: 21:14 Piggyback, [place] NaCl 0.9% 00 :00 Q8H ABX, 9 Medi dayna (NS) 50 mL doses, Branch MINI-BAG First dose on Sun06/25/22 at 1615, Last dose on Sun06/28/22 at 0815, Administer over 4 Hours, 50 mL
Reas on for Anti-Infec tive: Empiric Therapy for Suspected Infection< br>Empiric Therapy Site: Respirator y
Durat ion of therapy: 72 hours furosemide 2021-09 Yes 40mg 40 mg, Unive rs (LASIX) 0-23 Slow IV ity of injection 14:00: Push, [place] 40 mg 00 DAILY, Medical First dose Branch on [place] 06/25/22 at 0900, Until Discontinu ed, Routine enoxaparin 2021-09 Yes 40mg 40 mg, Unive rs (LOVENOX) 0-23 Subcutaneo ity of injection 14:00: [place], DAILY, [place] 40 mg 00 First dose Medical on [facility] 06/25/22 at 0900, Until Discontinu ed, Routine amLODIPine 2021-09 Yes 10mg 10 mg, Unive rs (NORVASC) 0-23 Oral, ity of tablet 10 14:00: DAILY, [place] mg 00 First dose Medical on [place] Branch 06/25/22 at 0900, Until Discontinu ed, Routine azithromyci 2021-09- Yes 500mg 500 mg, U nivers n 0-06-28 Oral, ity of (ZITHROMAX) 14:00: 13:59 DAILY, 3 [place] tablet 500 00 :00 doses, Medical mg First dose Branch on Sun06/25/22 at 0900, Last dose on Sun06/27/22 at 0900, SE
Re ason for Anti-Infec tive: Empiric Therapy for Suspected Infection< br>Empiric Therapy Site: Respirator y
Durat ion of therapy: 72 hours ceFEPIme 2021-09- No 1000mg 1,000 mg, U nivers (MAXIPIME) 0-23 10-23 IV ity of 1,000 mg in 13:30: 14:00 Piggyback, [place] NaCl 0.9% 00 :00 ONCE, 1 Medical (NS) 50 mL dose, On Branc h MINI-BAG [place] 06/25/22 at 0830, Administer over 30 Minutes, 50 mL
Reas on for Anti-Infec tive: Empiric Therapy for Suspected Infection< br>Empiric Therapy Site: Respirator y
Durat ion of therapy: 72 hours losartan 2021-09 Yes 50mg 50 mg, Univers (COZAAR) 0-23 Oral, BID, ity o f tablet 50 13:00: First dose [place] mg 00 on [facility] 06/25/22 Branch at 0800, Until Discontinu ed, Routine methylPREDN 2021-09 Yes 40mg 40 mg, Univ ers ISolone sod 0-23 Slow IV ity o f succ 13:00: Push, [place] (SOLU-MEDRO 00 Q12H, Medical L (PF)) First dose Branch injection on Sun 40 mg 06/25/22 at 0800, Until Discontinu ed, Routine morpHINE (2 2021-09 Yes 2mg 2 mg, Slow Univers mg/mL) 0-23 IV Push, ity of injection 2 11:02: Q6HPRN, José Miguel as mg 17 Starting Medical on [facility] 06/25/22 at 0602, Until Discontinu ed, Routine, Pain (scale 7-10) iopamidol 2021-09- No [id number] 100mL 100 mL, Univers (ISOVUE 0-23 10- Intravenou ity o f 370-500 mL) 07:59: 07:59 s, ONCE, 1 [place] injection 00 :00 dose, On Medica l 100 mL [facility] 06/25/22 at 0315, Routine traMADoL 2021-09 Yes 50mg 50 mg, Univers (ULTRAM) 0-23 Oral, ity of tablet 50 07:36: Q6HPRN, [place] mg 43 Starting Medical on [place] Branch 06/25/22 at 0236, Until Discontinu ed, Routine, Pain (scale 4-6) morpHINE (4 2021-09- No 4mg 4 mg, Slow Univers mg/mL) 006-25 IV Push, ity of injection 4 05:15: 04:46 ONCE, 1 [place] mg 00 :00 dose, On Medical [place] Branch 06/25/22 at 0015, SE furosemide 2021-09- No 40mg 40 mg, IV U nivers (LASIX) 006-25 Push, ity of injection 04:30: 04:46 ONCE, 1 [place] 40 mg 00 :00 dose, On Medical [facility] Branch 06/24/22 at 2330, SE ondansetron 2021-09 Yes 4mg 4 mg, Slow Univers (ZOFRAN 0 IV Push, ity of (PF)) 04:29: Q6HPRN, [place] injection 4 13 Starting Medi dayna mg on [facility] Branch 06/24/22 at 2329, Until Discontinu ed, Routine, Nausea and Vomiting (N/V) acetaminoph 2021-09 Yes 650mg 650 mg, Un guillermina en 0 Oral, ity of (TYLENOL) 04:29: Q6HPRN, [place] tablet 650 07 Starting Medic al mg on [facility] Branch 06/24/22 at 2329, Until Discontinu ed, Routine, Pain (scale 1-3) ondansetron 2021- No 4mg 4 mg, Univ ers (ZOFRAN-ODT 06-01 Oral, ity of ) 02:45: 01:44 ONCE, 1 [place] disintegrat 00 :00 dose, On Medi dayna ing tablet Wed Branch 4 mg 05/31/22 at 2145, SE HYDROcodone 2021-2021- No 1{tbl} 1 tablet, Univers -acetaminop 06-01 Oral, ity of hen (NORCO) 02:45: 01:45 ONCE, 1 [place] 10-325 mg 00 :00 dose, On Medica l tablet 1 Wed Branch tablet 05/31/22 at 2145, SE HYDROcodone 2021- Yes 4647 1{tbl} Take 1 U nivers -acetaminop 9-28 10-06 tablet by it y of hen 5-325 [...] 2021-0 No 1 8- 00:00: 00 &lt 2021-0 No 8- 00:00: 00 Dose 2021-0 No Unknown 8- 00:00: 00 &lt 2021-0 No 100 7-15 00:00: 00 enoxaparin 0 Yes 40mg 40 mg, Unive rs (LOVENOX) 6-26 Subcutaneo ity of injection 14:00: [place], DAILY, [place] 40 mg 00 First dose Medical on [facility] 02/26/22 at 0900, Until Discontinu ed, Routine amLODIPine Yes 10mg 10 mg, Unive rs (NORVASC) 6-26 Oral, ity of tablet 10 14:00: DAILY, [place] mg 00 First dose Medical on [facility] 02/26/22 at 0900, Until Discontinu ed, Routine celecoxib Yes 100mg Take 100 Uni vers (CELEBREX) 6-26 mg by ity of 100 mg 12:37: mouth 2 [place] capsule 35 (two) Medical times [place] daily with meals. amLODIPine Yes 10mg Take 10 mg U nivers 10 mg 6-26 by mouth ity of tablet 12:37: daily. [place] [address] Medical Branch FLUoxetine 2021-0 Yes 10mg Take 10 mg U nivers 10 mg 6-26 by mouth ity of capsule 12:37: daily. [address] Branch traMADoL 0 Yes 100mg Take 100 [...] by mouth ity of tablet 12:37: daily. [address] FLUoxetine 2022-0 Yes 10mg Take 10 mg U nivers 10 mg 6-26 by mouth ity of capsule 12:37: daily. [address] traMADoL 2022-0 Yes 100mg Take 100 [...] by mouth ity of tablet 12:37: daily. [address] FLUoxetine 2022-0 Yes 10mg Take 10 mg U nivers 10 mg 6-26 by mouth ity of capsule 12:37: daily. [address] traMADoL 2022-0 Yes 100mg Take 100 [...] by mouth ity of tablet 12:37: daily. [address] FLUoxetine 2022-0 Yes 10mg Take 10 mg U nivers 10 mg 6-26 by mouth ity of capsule 12:37: daily. [address] traMADoL 2022-0 Yes 100mg Take 100 [...] by mouth ity of tablet 12:37: daily. [address] FLUoxetine 202-0 Yes 10mg Take 10 mg U nivers 10 mg 6-26 by mouth ity of capsule 12:37: daily. [address] traMADoL 2022-0 Yes 100mg Take 100 Univ ers 100 mg 6-26 mg by ity of capsule 12:37: mouth [place] 35 every 6 Medical (six) Branch hours as needed. celecoxib 202-0 Yes 100mg Take 100 Uni vers (CELEBREX) 6-26 mg by ity of 100 mg 12:37: mouth 2 [place] capsule 35 (two) Medical times Branch daily with meals. amLODIPine 2021-0 Yes 10mg Take 10 mg U nivers 10 mg 6-26 by mouth ity of tablet 12:37: daily. [address] FLUoxetine 2021-0 Yes 10mg Take 10 mg U nivers 10 mg 6-26 by mouth ity of capsule 12:37: daily. [address] traMADoL 2021-0 Yes 100mg Take 100 Univ ers 100 mg 6-26 mg by ity of capsule 12:37: mouth [place] 35 every 6 Medical (six) Branch hours as needed. ondansetron 2021-0 Yes 4mg 4 mg, Slow Univers (ZOFRAN - IV Push, ity of (PF)) 04:30: Q6HPRN, [place] injection 4 54 Starting Medi dayna mg on [facility] Branch 02/25/22 at 2330, Until Discontinu ed, Routine, Nausea and Vomiting (N/V) acetaminoph 2021-0 Yes 650mg 650 mg, Un guillermina en 6- Oral, ity of (TYLENOL) 04:30: Q6HPRN, [place] tablet 650 45 Starting Medic al mg on [facility] Branch 02/25/22 at 2330, Until Discontinu ed, Routine, Pain (scale 1-3) ondansetron 202-0 2022- No 4mg 4 mg, Slow Univers (ZOFRAN 02-23 IV Push, ity of (PF)) 05:45: 04:58 ONCE, 1 [place] injection 4 00 :00 dose, On Medi dayna mg [facility] Branch 02/23/22 at 0045, SE morpHINE (4 2021- No 4mg 4 mg, Slow Univers mg/mL) 02-23 IV Push, ity of injection 4 05:45: 04:58 ONCE, 1 [place] mg 00 :00 dose, On Medical [facility] Branch 02/23/22 at 0045, STAT acetaminoph 2021- No 1000mg 1,000 mg, Univers en 02-23 Oral, ity of (TYLENOL) 04:00: 03:13 ONCE, 1 [place] tablet 00 :00 dose, On Medical 1,000 mg [facility] 02/22/22 at 2300, SE methocarbam 2021- No 1000mg 1,000 mg, Univers oL 02-23 Oral, ity of (ROBAXIN) 04:00: 03:14 ONCE, 1 [place] tablet 00 :00 dose, On Medical 1,000 mg [facility] 02/22/22 at 2300, SE TAKE 1 2021-0 No CAPSULE BY 6-20 MOUTH EVERY 00:00: DAY 00 &lt 2022-0 No 6-16 00:00: 00 Dose 2-0 No Unknown - 00:00: 00 &lt 2022-0 No 6-09 00:00: 00 TAKE 1 2021-0 No TABLET BY 6-09 MOUTH TWICE 00:00: A DAY FOR 00 30 DAYS &lt 2022-0 No 6- 00:00: 00 TAKE 1 2021-0 No TABLET BY 6-09 MOUTH TWICE 00:00: A DAY FOR 30 DAYS TAKE 1 2021-0 No TABLET BY 6-09 MOUTH TWICE 00:00: A DAY FOR 00 30 DAYS &lt 2022-0 No - 00:00: 00 TAKE 1 2-0 No TABLET BY 6-09 MOUTH EVERY 00:00: 12 HOURS 00 NEEDED Dose 2022-0 No Unknown 6- 00:00: 00 &lt 2022-0 No 6-09 00:00: 00 Dose 2022-0 No Unknown - 00:00: 00 &lt 2022-0 No - 00:00: 00 Dose 2022-0 No Unknown 02-01 00:00: 00 TAKE 1 2021-0 No TABLET BY 02-01 MOUTH EVERY 00:00: 12 HOURS 00 NEEDED Dose 2021-0 No Unknown 02-01 00:00: 00 TAKE 6 2021-0 No TABLETS ON 1 00:00: DIRECTED ON 00 PACKAGE AND DECREASE BY 1 TAB EACH DAY FOR A TOTAL OF 6 DAYS metformin 2021-0 No 1mg 500 mg 01-31 tablet 00:00: 00 Dose 2021-0 No Unknown 01-31 00:00: 00 &lt 2021-0 No 01-31 00:00: 00 TAKE 1 2021-0 No TABLET BY 01-31 MOUTH TWICE 00:00: A DAY 00 TAKE 2 2021-0 No PUFFS BY - MOUTH EVERY 00:00: 4 TO 6 00 HOURS &lt 2021-0 No 01-31 00:00: 00 TAKE 1 2021-0 No CAPSULE BY 01-31 MOUTH EVERY 00:00: DAY 00 TAKE 6 2021-0 No TABLETS ON 1 00:00: DIRECTED ON 00 PACKAGE AND DECREASE BY 1 TAB EACH DAY FOR A TOTAL OF 6 DAYS TAKE 1 2021-0 No TABLET BY -31 MOUTH TWICE 00:00: A DAY 00 TAKE 2 2021-0 No PUFFS BY 5-31 MOUTH EVERY 00:00: 4 TO 6 00 HOURS TAKE 2 2021-0 No PUFFS BY 5-31 MOUTH EVERY 00:00: 4 TO 6 00 HOURS Dose 2021-0 No Unknown 01-31 00:00: 00 &lt 2021-0 No 01-31 00:00: 00 ipratropium 2021-2021- No 3mL 3 mL, Univ ers -albuteroL [...] 00 :00 dose, On Medica l %) [place] Branch nebulizer 01/29/22 at solution 5 0915, SE mg Dose 2021-0 No Unknown - 00:00: 00 Dose 2021-0 No Unknown - 00:00: 00 Dose 2021-0 No Unknown 01-28 00:00: 00 Dose 2021-0 No Unknown - 00:00: 00 Dose 2021-0 No Unknown - 00:00: 00 FENTanyl PF 2021-2021- No 50ug 50 mcg, Un guillermina (SUBLIMAZE 01-03-03 Intramuscu it y of (PF)) 04:45: 04:36 lar, ONCE, [place] injection 00 :00 1 dose, On Medi dayna 50 mcg 01/02/22 Branch at 2345, Routine celecoxib 2021-0 Yes 100mg Take 100 Uni vers (CELEBREX) 4-06 mg by ity of 100 mg 12:53: mouth 2 [place] capsule 05 (two) Medical times Branch daily with meals. amLODIPine 2021-0 Yes 10mg Take 10 mg U nivers 10 mg 4-06 by mouth ity of tablet 12:53: daily. [address] FLUoxetine 2021-0 Yes 10mg Take 10 mg U nivers 10 mg 4-06 by mouth ity of capsule 12:53: daily. [address] traMADoL 2021-0 Yes 100mg Take 100 Univ ers 100 mg 4-06 mg by ity of capsule 12:53: mouth [place] [id number] every 6 Medical (six) Branch hours as needed. celecoxib 2021-0 Yes 100mg Take 100 Uni vers (CELEBREX) 4-06 mg by ity of 100 mg 12:53: mouth 2 [place] capsule 05 (two) Medical times Branch daily with meals. amLODIPine 2021-0 Yes 10mg Take 10 mg U nivers 10 mg 4-06 by mouth ity of tablet 12:53: daily. [address] FLUoxetine 2021-0 Yes 10mg Take 10 mg U nivers 10 mg 4-06 by mouth ity of capsule 12:53: daily. [address] traMADoL 2021-0 Yes 100mg Take 100 Univ ers 100 mg 4-06 mg by ity of capsule 12:53: mouth [place] [id number] every 6 Medical (six) Branch hours as needed. celecoxib 2021-0 Yes 100mg Take 100 Uni vers (CELEBREX) 4-06 mg by ity of 100 mg 12:53: mouth 2 [place] capsule 05 (two) Medical times Branch daily with meals. amLODIPine 2022-0 Yes 10mg Take 10 mg U nivers 10 mg 4-06 by mouth ity of tablet 12:53: daily. [address] FLUoxetine 2022-0 Yes 10mg Take 10 mg U nivers 10 mg 4-06 by mouth ity of capsule 12:53: daily. [address] traMADoL 2022-0 Yes 100mg Take 100 [...] by mouth ity of tablet 12:53: daily. [address] FLUoxetine 2-0 Yes 10mg Take 10 mg U nivers 10 mg 4-06 by mouth ity of capsule 12:53: daily. [address] traMADoL 2022-0 Yes 100mg Take 100 [...] by mouth ity of tablet 12:53: daily. [address] FLUoxetine 2022-0 Yes 10mg Take 10 mg U nivers 10 mg 4-06 by mouth ity of capsule 12:53: daily. [address] traMADoL 2022-0 Yes 100mg Take 100 Univ ers 100 mg 4-06 mg by ity of capsule 12:53: mouth [place] 05 every 6 Medical (six) Branch hours as needed. celecoxib 2022-0 Yes 100mg Take 100 Uni vers (CELEBREX) 4-06 mg by ity of 100 mg 12:53: mouth 2 [place] capsule 05 (two) Medical times Branch daily with meals. amLODIPine Yes 10mg Take 10 mg U nivers 10 mg 4-06 by mouth ity of tablet 12:53: daily. [address] Branch FLUoxetine Yes 10mg Take 10 mg U nivers 10 mg 4-06 by mouth ity of capsule 12:53: daily. [address] Branch traMADoL Yes 100mg Take 100 Univ ers 100 mg 4-06 mg by ity of capsule 12:53: mouth [place] 05 every 6 Medical (six) Branch hours as needed. predniSONE 2021- No 10mg Take 10 mg Univers 10 mg 4- 04-06 by mouth ity of tablet 10:31: 00:00 daily. [place] 31 :00 [facility] Branch hydrALAZINE 2021- No 100mg Take 100 Univers 100 mg 4- 04-06 mg by ity of tablet 10:31: 00:00 mouth 2 [place] 31 :00 (two) Medical times Dawn daily. cefTRIAXone 2021- No 2000mg 2,000 mg, Univers (ROCEPHIN) 12-0711 Intravenou it y of injection 05:00: 04:59 s, Q24H [place] 2,000 mg 00 :00 ABX, 5 Medical doses, Branch First dose on Sun12/07/21 at 0000, Last dose on Sun12/11/21 at 0000
Re ason for Anti-Infec tive: Documented Infection< br>Documen britney Infection Site: Respirator y
Durat ion of Therapy: 7 days predniSONE 2021- No [id number] Take 2 Univers 10 mg 12-07- tablets by ity of tablet 00:00: 04:59 mouth [place] 00 :00 daily for Medical 5 days, Branch THEN 1 tablet daily for 5 days, THEN 0.5 tablets daily for 5 days. predniSONE 2021- No [id number] Take 2 Univers 10 mg -02 04-22 tablets by ity of tablet 00:00: 04:59 mouth [place] 00 :00 daily for Medical 5 days, Branch THEN 1 tablet daily for 5 days, THEN 0.5 tablets daily for 5 days. azithromyci 2021- No [id number] 500mg Take 1 Univers n 500 mg 12-07 tablet by ity o f tablet 00:00: 04:59 mouth [place] 00 :00 daily for Medical 2 days. Branch azithromyci 2021- No [id number] 500mg Take 1 Univers n 500 mg 12-07 tablet by ity o f tablet 00:00: 04:59 mouth [place] 00 :00 daily for Medical 2 days. Branch traMADoL Yes 50mg 50 mg, Univers (ULTRAM) 4-05 Oral, ity of tablet 50 16:44: Q6HPRN, [place] mg 28 Starting Medical on [facility] Branch 12/06/21 at 1144, Until Discontinu ed, Routine, Pain (scale 4-6) ALPRAZolam Yes .5mg 0.5 mg, Univ ers (XANAX) 4-05 Oral, ity of tablet 0.5 16:43: BIDPRN, [place] mg 05 Starting Medical on [facility] 12/06/21 at 1143, Until Discontinu ed, Routine, anxiety HYDROcodone Yes 1{tbl} 1 tablet, Univers -acetaminop 4-05 Oral, ity of hen (NORCO 16:42: Q6HPRN, [place] 5) 5-325 mg 38 Starting Medi dayna tablet 1 on [facility] tablet 12/06/21 at 1142, Until Discontinu ed, Routine, Pain (scale 7-10) azithromyci 2021- No 500mg 500 mg, IV Univers n 4-01 04-08 Piggyback, ity of (ZITHROMAX) 14:45: 14:44 Q24H ABX, [place] 500 mg in 00 :00 3 doses, Medica l NaCl 0.9% First dose Bran ch (NS) 250 mL on Sun [facility] 12/06/21 at IV 0945, Last piggyback dose on [facility] 12/08/21 at 0945, Administer over 60 Minutes, 250 mL
Reas on for Anti-Infec tive: Empiric Therapy for Suspected Infection< br>Empiric Therapy Site: Respirator y
Durat ion of therapy: 72 hours KCL Yes 40meq 40 mEq, Univers (KLOR-CON 4-05 Oral, ity of M20) tablet 14:00: DAILY, [place] 40 mEq 00 First dose Medical on [facility] 12/06/21 at 0900, Until Discontinu ed, Routine enoxaparin 2022-0 Yes 40mg 40 mg, Unive rs (LOVENOX) 4-05 Subcutaneo ity of injection 14:00: us, Q24H, José Miguel as 40 mg 00 First dose Medical on [facility] 12/06/21 at 0900, Until Discontinu ed, Routine predniSONE 2021-0 Yes 20mg 20 mg, Unive rs (DELTASONE) 4-05 Oral, ity of tablet 20 14:00: DAILY, [place] mg 00 First dose Medical on [facility] 12/06/21 at 0900, Until Discontinu ed, Routine FLUoxetine 2021-0 Yes 20mg 20 mg, Unive rs (PROZAC) 4-05 Oral, ity of capsule 20 14:00: DAILY, [place] mg 00 First dose Medical on [facility] 12/06/21 at 0900, Until Discontinu ed, Routine amLODIPine 2021-0 Yes 5mg 5 mg, Univer s (NORVASC) 4-05 Oral, ity of tablet 5 mg 14:00: DAILY, [place] 00 First dose Medical on [facility] 12/06/21 at 0900, Until Discontinu ed, Routine magnesium 2021-0 Yes 400mg 400 mg, Univ ers oxide 4-05 Oral, BID, ity of (MAG-OX 13:00: [place] 400) tablet 00 sun Medica l 400 mg 12/06/21 at Branch 0800, Until Discontinu ed, Routine ipratropium 2021-0 Yes 3mL 3 mL, Unive rs -albuteroL 4-05 Inhalation ity of (DUONEB) 13:00: , QID, [place] 0.5 mg-3 00 First dose Medic al mg(2.5 mg on [facility] base)/3 mL 12/06/21 at nebulizer 0800, solution 3 Until mL Discontinu ed, Routine lactobacill 2022-0 Yes .5mg 0.5 mg, Uni vers us 4-05 Oral, BID, ity of acidophilus 13:00: First dose [place] tablet 0.5 00 on Sun mg 12/06/21 at Branch 0800, Until Discontinu [...] 0100, Routine fluticasone Yes 1{puff} 1 Puff, [facility] propion-lavon 12-05 Inhalation it y of meteroL 13:00: , Q12H, [place] (ADVAIR) 00 First dose Medic al 250-50 on Sun mcg/dose 12/05/21 at inhalation 0800, disk 1 Puff Until Discontinu ed, Routine lurasidone 2021- No Take by Uni vers HCl (LATUDA 12-05 mouth. ity o f ORAL) 05:43: 00:00 [place] 55 :00 [facility] Branch acetylcyste 2021- No 4mL 800 mg (4 Univers ine 4-04 04-07 mL), ity of (MUCOMYST) 05:00: 04:59 Inhalation [place] 200 mg/mL 00 :00 , Q6H, 12 Medic al (20 %) doses, Branch solution First dose 800 mg on Sun12/05/21 at 0000, Last dose on Sun12/07/21 at 1800, Routine cefTRIAXone 2021-0 Yes 1000mg 1,000 mg, Univers (ROCEPHIN) 4-04 IV ity of 1,000 mg in 03:00: Piggyback, [place] NaCl 0.9% 00 Q24H ABX, Medic al (NS) 50 mL First dose [facility] MINI-BAG on Sun12/04/21 at 2200, Until Discontinu ed, Administer over 30 Minutes, 50 mL
Reas on for Anti-Infec tive: Empiric Therapy for Suspected Infection< br>Empiric Therapy Site: Respirator y
Durat ion of therapy: 72 hours ipratropium 2021-0 Yes 3mL 3 mL, Unive [...] 51 Starting Medica l tablet 1 on [place] Branch tablet 12/04/21 at 2054, Until Discontinu ed, Routine, Pain (scale 4-6) iopamidol 2021-0 202- No [id number] 100mL 100 mL, Univers (ISOVUE 4-03 04-03 Intravenou ity o f 370-500 mL) 20:43: 20:43 s, ONCE, 1 [place] injection 00 :00 dose, On Medica l 100 mL [place] 12/04/21 Branch at 1600, Routine enoxaparin 0 Yes 40mg 40 mg, Unive rs (LOVENOX) 12-04 Subcutaneo ity of injection 14:00: [place], DAILY, [place] 40 mg 00 First dose Medical on [facility] 12/04/21 at 0900, Until Discontinu ed, Routine amLODIPine 0 Yes 5mg 5 mg, Univer s (NORVASC) 12-04 Oral, ity of tablet 5 mg 14:00: DAILY, [place] 00 First dose Medical on [facility] 12/04/21 at 0900, Until Discontinu ed, Routine predniSONE 2021- No 20mg 20 mg, Univ ers (DELTASONE) 12-04 04-04 Oral, ity of tablet 20 14:00: 01:54 DAILY, [place] mg 00 :23 First dose Medical on [facility] 12/04/21 at 0900, Until Discontinu ed, Routine lurasidone Yes 20mg 20 mg, Unive rs (LATUDA) 12-04 Oral, ity of tablet 20 12:30: QAM-0730, [place] as mg 00 First dose Medical on [facility] 12/04/21 at 0730, Until Discontinu ed doxycycline Yes 100mg 100 mg, Un guillermina hyclate 12-04 Oral, ity of (Vibramycin 11:00: Q12HA2, [place] as ) capsule 00 First dose Medi dayna 100 mg on [facility] 12/04/21 at 0600, Until Discontinu ed, SE
Re ason for Anti-Infec tive: Empiric Therapy for Suspected Infection< br>Empiric Therapy Site: Respirator y
Du ration of therapy: 7 days NaCl 0.9% 2021- No 500mL at 100 Univ ers (NS) IV 12-04 04-03 mL/hr, IV ity of infusion 11:00: 15:59 Infusion, [place] Miguel as 500 mL 00 :00 CONTINUOUS Medical , Starting Branch on [place] 12/04/21 at 0600, Until [place] 12/04/21 at 1059, Routine zolpidem Yes 5mg 5 mg, Univers (AMBIEN) 4-03 Oral, ity of tablet 5 mg 06:14: QHSPRN, [place] Miguel as 57 Starting Medical on [place] Branch 12/04/21 at 0114, Until Discontinu ed, Routine, Insomnia docusate Yes 100mg 100 mg, Unive rs (COLACE) 12-04 Oral, BID, ity o f capsule 100 01:00: First dose [place] mg [address] [facility] Medical 12/03/21 at Branch 2000, Until Discontinu ed, Routine busPIRone Yes 5mg 5 mg, Univers (BUSPAR) 12-04 Oral, BID, ity o f tablet 5 mg 01:00: First dose [place] 00 on [facility] 12/03/21 at Branch 2000, Until Discontinu ed, Routine ipratropium 2021- No 3mL 3 mL, Univ ers -albuteroL 12-04 04-04 Inhalation it y of (DUONEB) 01:00: 01:56 , QID, [place] 0.5 mg-3 00 :47 First dose Medic al mg(2.5 mg on [facility] base)/3 mL 12/03/21 at nebulizer 1999, solution 3 Until mL Discontinu ed, Routine ondansetron Yes 4mg 4 mg, Slow Univers (ZOFRAN 12-03 IV Push, ity of (PF)) 22:05: Q6HPRN, [place] injection 4 11 Starting Medi dayna mg on [facility] 12/03/21 at 1705, Until Discontinu ed, Routine, Nausea and Vomiting (N/V) HYDROcodone 2021- No 1{tbl} 1 tablet, Univers -acetaminop 12-03 04-04 Oral, ity of hen (NORCO 22:05: 01:56 Q6HPRN, [place] as 5) 5-325 mg 07 :02 Starting Medi dayna tablet 1 on [facility] tablet 12/03/21 at 1705, Until [place] 12/04/21 at 205, Routine, Pain (scale 4-6) acetaminoph 2021-0 Yes 650mg 650 mg, Un guillermina en 02 Oral, ity of (TYLENOL) 22:05: Q6HPRN, [place] tablet 650 04 Starting Medic al mg on [facility] 12/03/21 at 1705, Until Discontinu ed, Routine, Pain (scale 1-3) methylpredn 2021- No 125mg 125 mg, U nivers isolone sod 12-03 Slow IV ity of succ 21:00: 22:03 Push, ONCE [place] (SOLU-MEDRO 00 :00 NOW, 1 Medica l L) dose, On Branch injection 12/03/21 125 mg at 1600, SE albuterol 2021- No 2.5mg 2.5 mg, Uni vers (PROVENTIL) 12-03 Inhalation i ty of 2.5 mg /3 21:00: 22:06 , QID, [place] mL (0.083 00 :33 First dose Medi dayna %) on [facility] Branch nebulizer 12/03/21 at solution 1600, 2.5 mg Until Discontinu ed, Routine ipratropium 2021- No .5mg 0.5 mg, Un guillermina (ATROVENT) 12-03 Inhalation it y of 0.02 % 21:00: 22:06 , QID, [place] nebulizer 00 :24 First dose Medi dayna solution on [facility] Branch 0.5 mg 12/03/21 at 1600, Until Discontinu ed, Routine predniSONE Yes 30mg 30 mg, Unive rs (DELTASONE) 312 Oral, ity of tablet 30 15:00: DAILY, [place] mg 00 First dose Medical (after Branch last modificati on) on [facility] 11/12/21 at 0900, Until Discontinu [...] (LATUDA 3-11 mouth. ity of ORAL) 17:32: [facility] Branch lurasidone Yes Take by Univ ers HCl (LATUDA 3-11 mouth. ity of ORAL) 17:32: [facility] Branch lurasidone Yes Take by [facility] ers HCl (LATUDA 3-11 mouth. ity of ORAL) 17:32: [place] [facility] Branch KCL 2021- No 20meq 20 mEq, Univers (KLOR-CON 11-11 Oral, ity of M20) tablet 02:00: 02:20 ONCE, 1 [place] 20 mEq 00 :00 dose, On Medical [facility] Branch 11/10/21 at 2000, Routine predniSONE Yes [id number] 20mg Take 1 Univers 20 mg 3-11 tablet by ity of tablet 00:00: mouth [place] 00 daily. [facility] Branch predniSONE Yes [id number] 20mg Take 1 Univers 20 mg 3-11 tablet by ity of tablet 00:00: mouth [place] 00 daily. [facility] Branch predniSONE 2021- No [id number] 20mg Take 1 Univers 20 mg 3-11 04-04 tablet by ity of tablet 00:00: 00:00 mouth [place] 00 :00 daily. Medical Branch piperacilli 2021- No 3.375g 3.375 g, Univers n-tazobacta 11-10 IV ity of m (ZOSYN) 22:00: 21:01 Piggyback, [place] 3.375 g in 00 :00 Q8H ABX, Medic al NaCl 0.9% First dose Bran ch (NS) 100 mL on [facility] VIAL-MATE 11/10/21 at 1600, Until Discontinu ed, Administer over 4 Hours, 100 mL
Reas on for Anti-Infec tive: Empiric Therapy for Suspected Infection< br>Empi leandro Therapy Site: Respirator y
Durat ion of therapy: 72 hours enoxaparin Yes 40mg 40 mg, Unive rs (LOVENOX) 3-10 Subcutaneo ity of injection 15:00: us, DAILY, [place] 40 mg 00 First dose Medical on [facility] Branch 11/10/21 at 0900, Until Discontinu ed, Routine hydroCHLORO 2022-0 Yes 12.5mg 12.5 mg, Univers thiazide 3-10 Oral, ity of (ESIDRIX) 15:00: DAILY, [place] capsule 00 First dose Medica l 12.5 mg on [facility] 11/10/21 at 0900, Until Discontinu ed, Routine amLODIPine 2021-0 Yes 10mg 10 mg, Unive rs (NORVASC) 3-10 Oral, ity of tablet 10 15:00: DAILY, [place] mg 00 First dose Medical on [facility] 11/10/21 at 0900, Until Discontinu ed, Routine predniSONE 2021-0 202- No 40mg 40 mg, Univ ers (DELTASONE) 3-10 03-11 Oral, ity of tablet 40 15:00: 17:05 DAILY, [place] mg 00 :49 First dose Medical on [facility] 11/10/21 at 0900, Until Discontinu ed, Routine docusate 2021-0 Yes 100mg 100 mg, Unive rs (COLACE) 3-10 Oral, BID, ity o f capsule 100 14:00: First dose [place] mg 00 on [facility] 11/10/21 at Branch 0800, Until Discontinu ed, Routine busPIRone 2021-0 Yes 5mg 5 mg, Univers (BUSPAR) 3-10 Oral, BID, ity o f tablet 5 mg 14:00: First dose [place] 00 on [facility] 11/10/21 at Branch 0800, Until Discontinu ed, Routine lurasidone 2021-0 Yes 20mg 20 mg, Unive rs (LATUDA) 3-10 Oral, ity of tablet 20 13:30: QA-0730, [place] as mg 00 First dose Medical on [facility] 11/10/21 at 0730, Until Discontinu ed morpHINE 2021-0 Yes 2mg 2 mg, Slow Uni vers injection 2 3-10 IV Push, ity of mg 07:05: Q4HPRN, [place] 58 Starting Medical on [facility] 11/10/21 at 0105, Until Discontinu ed, Routine, Pain (scale 7-10) ondansetron 2021-0 Yes 4mg 4 mg, Slow Univers (ZOFRAN 3-10 IV Push, ity of (PF)) 05:19: Q6HPRN, [place] injection 4 35 Starting Medi dayna mg on 11/09/21 at 2319, Until Discontinu ed, Routine, Nausea and Vomiting (N/V) HYDROcodone 2021- No 1{tbl} 1 tablet, Univers -acetaminop 3-12 Oral, ity of hen (NORCO 05:19: 05:18 Q6HPRN, [place] as 5) 5-325 mg 30 :30 Starting Medi dayna tablet 1 on [place] Branch tablet 11/09/21 at 2319, Until Sun11/11/21 at 2318, Routine, Pain (scale 4-6) acetaminoph Yes 650mg 650 mg, Un guillermina en 3-10 Oral, ity of (TYLENOL) 05:19: Q6HPRN, [place] tablet 650 28 Starting Medic al mg on [place] Branch 11/09/21 at 2319, Until Discontinu ed, Routine, Pain (scale 1-3) albuterol 0 Yes 2{puff} 2 Puff, Un guillermina (VENTOLIN) 310 Inhalation ity of inhaler 2 05:17: , Q6HPRN, [place] as Puff 52 Starting Medical on [place] [facility] 11/09/21 at 2317, Until Discontinu ed, Routine, Wheezing, Shortness of Breath iopamidol 2021- No [id number] 100mL 100 mL, Univers (ISOVUE 11-10 72763 Intravenou ity of 370-500 mL) 04:43: 04:44 s, ONCE, 1 [place] injection 00 :00 dose, On Medica l 100 mL Sun11/09/21 Branch at 2300, Routine morpHINE 2021- No 4mg 4 mg, Slow Un guillermina injection 4 11-10 IV Push, ity of mg 03:45: 02:57 ONCE, 1 [place] 00 :00 dose, On Medical Sun11/09/21 Branch [...] of 2.5 mg /3 02:00: , QID, [place] mL (0.083 00 First dose Medi dayna %) on [place] Branch nebulizer 11/09/21 at solution 2000, 2.5 mg Until Discontinu ed, Routine ipratropium Yes .5mg 0.5 mg, Uni vers (ATROVENT) 3-10 Inhalation ity of 0.02 % 02:00: , QID, [place] nebulizer 00 First dose Medi dayna solution on [place] Branch 0.5 mg 11/09/21 at 2000, Until Discontinu ed, Routine hydroCHLORO Yes [id number] 12.5mg Take 1 Univers thiazide 2-22 capsule by ity o f 12.5 mg 00:00: mouth [place] capsule 00 daily. Medical Branch hydroCHLORO Yes [id number] 12.5mg Take 1 Univers thiazide 2-22 capsule by ity o f 12.5 mg 00:00: mouth [place] capsule 00 daily. Medical Branch hydroCHLORO 2021-0 Yes [id number] 12.5mg Take 1 Univers thiazide 2-22 capsule by ity o f 12.5 mg 00:00: mouth [place] capsule 00 daily. Medical Branch hydroCHLORO 2021-0 Yes [id number] 12.5mg Take 1 Univers thiazide 2-22 capsule by ity o f 12.5 mg 00:00: mouth [place] capsule 00 daily. Medical Branch hydroCHLORO 2021-0 Yes [id number] 12.5mg Take 1 Univers thiazide 2-22 capsule by ity o f 12.5 mg 00:00: mouth [place] capsule 00 daily. Medical Branch hydroCHLORO 2021-0 Yes [id number] 12.5mg Take 1 Univers thiazide 2-22 capsule by ity o f 12.5 mg 00:00: mouth [place] capsule 00 daily. Medical Branch hydroCHLORO 2021-0 Yes [id number] 12.5mg Take 1 Univers thiazide 2-22 capsule by ity o f 12.5 mg 00:00: mouth [place] capsule 00 daily. Medical Branch hydroCHLORO 2021-0 2021- No [id number] 12.5mg Take 1 Univers thiazide 2-22 04-04 capsule by ity of 12.5 mg 00:00: 00:00 mouth [place] capsule 00 :00 daily. Medical Branch hydroCHLORO 2021-0 202- No [id number] 12.5mg Take 1 Univers thiazide 2-22 02-21 capsule by ity of 12.5 mg 00:00: 00:00 mouth [place] capsule 00 :00 daily for Medical 30 days. Branch hydroCHLORO 2021-0 2021- No [id number] 12.5mg Take 1 Univers thiazide 2-22 02-21 capsule by ity of 12.5 mg 00:00: 00:00 mouth [place] capsule 00 :00 daily for Medical 30 days. Branch lurasidone 0 Yes Take by Univ ers HCl (LATUDA 2-21 mouth. ity of ORAL) 17:53: [address] Branch lurasidone Yes Take by Univ ers HCl (LATUDA 2-21 mouth. ity of ORAL) 17:53: [place] 11 Medical Branch lurasidone 0 Yes Take by [facility] ers HCl (LATUDA 2-21 mouth. ity of ORAL) 17:53: [place] 11 Medical Branch lurasidone 2021-0 Yes Take by [facility] ers HCl (LATUDA 2-21 mouth. ity of ORAL) 10:59: [place] 57 Medical Branch zolpidem 2021-0 2021- No 5mg 5 mg, Univers (AMBIEN) 2-21 02-21 Oral, ity of tablet 5 mg 04:00: 03:07 ONCE, 1 [place] 00 :00 dose, On Medical [place] Branch 10/23/21 at 2200, Routine predniSONE 2021-0 Yes [id number] 40mg Take 2 Univers 20 mg 2-21 tablets by ity of tablet 00:00: mouth daily. Medical Branch docusate 0 Yes [id number] 100mg Take 1 U nivers 100 mg 2-21 capsule by ity of capsule 00:00: mouth (two) Medical times Branch daily. busPIRone 5 2021-0 Yes [id number] 5mg Take 1 Univers mg tablet 2-21 tablet by ity o f 00:00: mouth (two) Medical times Branch daily. chlorhexidi 0 Yes [id number] 15mL [place] and Univers ne 0.12 % 2-21 spit out ity of mouthwash 00:00: 15 mL 2 (two) Medical times Branch daily. albuterol 0 Yes [id number] 2{puff} Inhale 2 Univers 90 2-21 Puffs ity of mcg/actuati 00:00: every 6 José Miguel as on inhaler 00 (six) Medical hours as Branch needed for Wheezing or Shortness of Breath. predniSONE 0 Yes [id number] 40mg Take 2 Univers 20 mg 2-21 tablets by ity of tablet 00:00: mouth daily. Medical Branch docusate 2021-0 Yes [id number] 100mg Take 1 U nivers 100 mg 2-21 capsule by ity of capsule 00:00: mouth (two) Medical times Branch daily. busPIRone 5 2021-0 Yes [id number] 5mg Take 1 Univers mg tablet 2-21 tablet by ity o f 00:00: mouth (two) Medical times Branch daily. chlorhexidi 2021-0 Yes [id number] 15mL Swish and Univers ne 0.12 % 2-21 spit out ity of mouthwash 00:00: 15 mL 2 (two) Medical times Branch daily. albuterol 2021-0 Yes [id number] 2{puff} Inhale 2 Univers 90 2-21 Puffs ity of mcg/actuati 00:00: every 6 José Miguel as on inhaler (six) Medical hours as Branch needed for Wheezing or Shortness of Breath. predniSONE 2021-0 Yes [id number] 40mg Take 2 Univers 20 mg 2-21 tablets by ity of tablet 00:00: mouth [place] daily. Medical Branch docusate 2021-0 Yes [id number] 100mg Take 1 U nivers 100 mg 2-21 capsule by ity of capsule 00:00: mouth [place] (two) Medical times Branch daily. busPIRone 5 2021-0 Yes [id number] 5mg Take 1 Univers mg tablet 2-21 tablet by ity o f 00:00: mouth [place] (two) Medical times Branch daily. chlorhexidi 2021-0 Yes [id number] 15mL Swish and Univers ne 0.12 % 2-21 spit out ity of mouthwash 00:00: 15 mL 2 [place] (two) Medical times Branch daily. albuterol 2021-0 Yes [id number] 2{puff} Inhale 2 Univers 90 2-21 Puffs ity of mcg/actuati 00:00: every 6 José Miguel as on inhaler 00 (six) Medical hours as Branch needed for Wheezing or Shortness of Breath. docusate 2-0 Yes [id number] 100mg Take 1 U nivers 100 mg 2-21 capsule by ity of capsule 00:00: mouth [place] (two) Medical times Branch daily. albuterol 2021-0 Yes [id number] 2{puff} Inhale 2 Univers 90 2-21 Puffs ity of mcg/actuati 00:00: every 6 José Miguel as on inhaler 00 (six) Medical hours as Branch needed for Wheezing or Shortness of Breath. busPIRone 5 2-0 Yes [id number] 5mg Take 1 Univers mg tablet 2-21 tablet by ity o f 00:00: mouth (two) Medical times Branch daily. chlorhexidi 2-0 Yes [id number] 15mL Swish and Univers ne 0.12 % 2-21 spit out ity of mouthwash 00:00: 15 mL (two) Medical times Branch daily. docusate 2022-0 Yes [id number] 100mg Take 1 U nivers 100 mg 2-21 capsule by ity of capsule 00:00: mouth (two) Medical times Branch daily. busPIRone 5 2-0 Yes [id number] 5mg Take 1 Univers mg tablet 2-21 tablet by ity o f 00:00: mouth (two) Medical times Branch daily. chlorhexidi 2-0 Yes [id number] 15mL Swish and Univers ne 0.12 % 2-21 spit out ity of mouthwash 00:00: 15 mL (two) Medical times Branch daily. albuterol 2-0 Yes [id number] 2{puff} Inhale 2 Univers 90 2-21 Puffs ity of mcg/actuati 00:00: every 6 José Miguel as on inhaler 00 (six) Medical hours as Branch needed for Wheezing or Shortness of Breath. docusate 2-0 Yes [id number] 100mg Take 1 U nivers 100 mg 2-21 capsule by ity of capsule 00:00: mouth (two) Medical times Branch daily. busPIRone 5 2-0 Yes [id number] 5mg Take 1 Univers mg tablet 2-21 tablet by ity o f 00:00: mouth (two) Medical times Branch daily. chlorhexidi 2-0 Yes [id number] 15mL Swish and Univers ne 0.12 % 2-21 spit out ity of mouthwash 00:00: 15 mL (two) Medical times Branch daily. albuterol 2022-0 Yes [id number] 2{puff} Inhale 2 Univers 90 2-21 Puffs ity of mcg/actuati 00:00: every 6 [place] as on inhaler 00 (six) Medical hours as Branch needed for Wheezing or Shortness of Breath. docusate 2022-0 Yes [id number] 100mg Take 1 U nivers 100 mg 2-21 capsule by ity of capsule 00:00: mouth 2 [place] 00 (two) Medical times Branch daily. busPIRone 5 2021- Yes [id number] 5mg Take 1 Univers mg tablet 2-21 tablet by ity o f 00:00: mouth 2 [place] 00 (two) Medical times Branch daily. chlorhexidi Yes [id number] 15mL Swish and Univers ne 0.12 % 2-21 spit out ity of mouthwash 00:00: 15 mL 2 [place] 00 (two) Medical times Branch daily. albuterol Yes [id number] 2{puff} Inhale 2 Univers 90 2-21 Puffs ity of mcg/actuati 00:00: every 6 [place] as on inhaler 00 (six) Medical hours as Branch needed for Wheezing or Shortness of Breath. docusate 2021-2021- No [id number] 100mg Take 1 Univers 100 mg 2-21 04-04 capsule by ity of capsule 00:00: 00:00 mouth 2 [place] 00 :00 (two) Medical times Branch daily. busPIRone 5 2021- No [id number] 5mg Take 1 Univers mg tablet 2-21 04-04 tablet by ity of 00:00: 00:00 mouth 2 [place] 00 :00 (two) Medical times Branch daily. chlorhexidi 2021- No [id number] 15mL Swish and Univers ne 0.12 % 2-21 04-04 spit out ity o f mouthwash 00:00: 00:00 15 mL 2 [place] 00 :00 (two) Medical times Branch daily. albuterol 2021- No [id number] 2{puff} Inhale 2 Univers 90 2-21 04-04 Puffs ity of mcg/actuati 00:00: 00:00 every 6 [place] on inhaler 00 :00 (six) Medical hours as Branch needed for Wheezing or Shortness of Breath. predniSONE 2021-0 2- No [id number] 40mg Take 2 Univers 20 mg 2-21 03-24 tablets by ity of tablet 00:00: 04:59 mouth [place] 00 :00 daily for Medical 30 days. Branch predniSONE 2021-0 2021- No [id number] 40mg Take 2 Univers 20 mg 10-24-11 [...] s: acute pain busPIRone 5 2021- No [id number] 5mg Take 1 Univers mg tablet 10-24 tablet by ity of 00:00: 00:00 mouth 2 [place] 00 :00 (two) Medical times Branch daily for 30 days. chlorhexidi 2021- No [id number] 15mL Swish and Univers ne 0.12 % 10-24 spit out ity o f mouthwash 00:00: 00:00 15 mL 2 [place] 00 :00 (two) Medical times Branch daily for 7 days. albuterol 2021- No [id number] 2{puff} Inhale 2 Univers 90 10-24 Puffs ity of mcg/actuati 00:00: 00:00 every 6 [place] on inhaler 00 :00 (six) Medical hours as Branch needed for Wheezing or Shortness of Breath. predniSONE 2021- No [id number] 40mg Take 2 Univers 20 mg 10-24- tablets by ity of tablet 00:00: 00:00 mouth [place] 00 :00 daily for Medical 30 days. Branch busPIRone 5 2021- No [id number] 5mg Take 1 Univers mg tablet 10-24 tablet by ity of 00:00: 00:00 mouth 2 [place] 00 :00 (two) Medical times Branch daily for 30 days. chlorhexidi 2021- No [id number] 15mL Swish and Univers ne 0.12 % 10-24 spit out ity o f mouthwash 00:00: 00:00 15 mL 2 [place] 00 :00 (two) Medical times Branch daily for 7 days. phenoL Yes 1{spray 1 [place], Univ ers (SORE 2-20 } Oral, PRN, ity of THROAT 19:03: Starting [place] (PHENOL)) 59 on [facility] Medical 1.4 % spray 10/23/21 at Br anch bottle 1 1303, [place] Until Discontinu ed, Routine, Sore throat phenoL Yes 1{spray 1 [place], Univ ers (SORE 2-20 } Oral, PRN, ity of THROAT 19:03: Starting [place] (PHENOL)) 59 on [facility] 1.4 % spray 10/23/21 at Br anch bottle 1 1303, [place] Until Discontinu ed, Routine, Sore throat zolpidem 2021- No 5mg 5 mg, Univers (AMBIEN) 10-2320 Oral, ity of tablet 5 mg 04:00: 03:54 ONCE, 1 [place] 00 :00 dose, On Medical Sat Branch 10/22/21 at 2200, Routine methylpredn 2021-0 Yes 125mg 125 mg, Un guillermina isolone sod 2-19 Intravenou it y of succ 20:00: s, Q8H, [place] (SOLU-MEDRO 00 First dose Me dical L) (after Branch injection last 125 mg modificati on) on 10/22/21 at 1400, Until Discontinu ed, Routine methylpredn 2022-0 Yes 125mg 125 mg, Un guillermina isolone sod 2-19 Intravenou it y of succ 20:00: s, Q8H, [place] (SOLU-MEDRO 00 First dose Me dical L) (after Branch injection last 125 mg modificati on) on [facility] 10/22/21 at 1400, Until Discontinu ed, Routine hydroCHLORO 2022-0 Yes 12.5mg 12.5 mg, Univers thiazide 2-19 Oral, ity of (ESIDRIX) 15:30: DAILY, [place] capsule 00 First dose Medica l 12.5 mg on [facility] 10/22/21 at 0930, Until Discontinu ed, Routine amLODIPine 2022-0 Yes 10mg 10 mg, Unive rs (NORVASC) 2-19 Oral, ity of tablet 10 15:30: DAILY, [place] mg 00 First dose Medical on [facility] 10/22/21 at 0930, Until Discontinu ed, Routine hydroCHLORO 2022-0 Yes 12.5mg 12.5 mg, Univers thiazide - Oral, ity of (ESIDRIX) 15:30: DAILY, [place] capsule 00 First dose Medica l 12.5 mg on [facility] 10/22/21 at 0930, Until Discontinu ed, Routine amLODIPine 2022-0 Yes 10mg 10 mg, Unive rs (NORVASC) 2-19 Oral, ity of tablet 10 15:30: DAILY, [place] mg 00 First dose Medical on [facility] 10/22/21 at 0930, Until Discontinu ed, Routine acetaminoph 2022-0 Yes 650mg 650 mg, Un guillermina en 2-19 Oral, ity of (TYLENOL) 09:54: Q6HPRN, [place] tablet 650 49 Starting Medic al mg on [facility] 10/22/21 at 0354, Until Discontinu ed, Routine, Pain (scale 1-3) acetaminoph 2022-0 Yes 650mg 650 mg, Un guillermina en 2-19 Oral, ity of (TYLENOL) 09:54: Q6HPRN, [place] tablet 650 49 Starting Medic al mg on [facility] 10/22/21 at 0354, Until Discontinu ed, Routine, Pain (scale 1-3) chlorhexidi 2022-0 Yes 15mL 15 mL, Univ ers ne 2-19 Oral ity of (PERIDEX) 02:00: ([place] 0.12 % 00 Spit Out), Medical mouthwash BID, First Bran ch 15 mL dose on Sun10/21/21 at 1999, Until Discontinu ed, Routine chlorhexidi Yes 15mL 15 mL, Univ ers ne [...] allowed dose, contact prescriber .
propofoL IV No 5ug/kg/ 5-50 Un guillermina infusion 10-21 min mcg/kg/min ity of 20:41: 15:22 ?99.8 kg [place] 59 :55 (2.994-29. Medical 94 mL/hr, Branch [...] ty of succ 19:00: 15:22 s, Q6H, [place] (SOLU-MEDRO 00 :22 First dose Me dical L) (after Branch injection last 125 mg modificati on) on Sun10/21/21 at 1300, Until Discontinu ed, Routine metoprolol 2021- No 5mg 5 mg, Slow Univers (LOPRESSOR) 10-21 IV Push, ity of injection 5 19:00: 19:00 [place]CE[place] 1 [place] 00 :[place] dose, On Medical Fri Branch 10/21/21 at 1300, Routine EPINEPHrine Yes PRN, Univer s 1:1,000 (1 10-21 Starting ity o f mg/mL) 18:01: on Fri [place] (ADRENALIN) 00 2/18/22 at Mi dical injection 1201, Branch Until Discontinu ed, Routine, Intra-op EPINEPHrine 2021-0 Yes PRN, Univer s 1:1,000 (1 18 Starting ity o f mg/mL) 18:01: on Sun [place] (ADRENALIN) 10/21/21 at Mi dical injection 1201, Branch Until Discontinu ed, [...] NaCl 0.9% 2021-0 Yes PRN, Univers (NS) 218 Starting ity of injection 17:01: on Sun [place] 10/21/21 at [facility] 1101, Branch Until Discontinu ed, Routine, Intra-op NaCl 0.9% 2021-0 Yes PRN, Univers (NS) 2-18 Starting ity of injection 17:01: on Sun [place] 10/21/21 at [facility] 1101, Branch Until Discontinu ed, Routine, Intra-op morpHINE 2021-0 Yes 4mg 4 mg, Slow Uni vers injection 4 2-17 IV Push, ity of mg 23:22: [place] [address] Starting Medical on [place] Branch 10/20/21 at 1722, Until Discontinu ed, Routine, Pain (scale 7-10) morpHINE 2021-0 Yes 4mg 4 mg, Slow Uni vers injection 4 2-17 IV Push, ity of mg 23:22: [place] [address] Starting Medical on [place] Branch 10/20/21 at 1722, Until Discontinu ed, Routine, Pain (scale 7-10) methylpredn No 125mg 125 mg, U nivers isolone sod 10-20 Intravenou i ty of succ 20:00: 17:53 s, Q8H, [place] (SOLU-MEDRO 00 :24 First dose Me dical L) (after Branch injection last 125 mg modificati on) on [facility] 10/20/21 at 1400, Until Discontinu ed, Routine furosemide 2021- No 40mg 40 mg, Univ ers (LASIX) 10-20 Slow IV ity of injection 18:00: 18:19 Push, [place] 40 mg 00 :00 ONCE, 1 Medical dose, On Branch Nicole 10/20/21 at 1200, Routine pantoprazol Yes 40mg 40 mg, Univ ers e 2-17 Oral, ity of (PROTONIX) 16:45: DAILY, [place] EC tablet 00 First dose Medi dayna 40 mg on [facility] Branch 10/20/21 at 1045, Until Discontinu ed, Routine pantoprazol Yes 40mg 40 mg, Univ ers e -17 Oral, ity of (PROTONIX) 16:45: DAILY, [place] EC tablet 00 First dose Medi dayna 40 mg on [facility] Branch 10/20/21 at 1045, Until Discontinu ed, Routine alum-mag 0 Yes 30mL 30 mL, Univers hydroxide-s 2-17 Oral, ity of imeth 16:37: Q6HPRTorrance, [place] (MAALOX 49 Starting Medical PLUS / on [facility] Branch [facility]21 at [facility]) 1037, 200-200-20 Until mg/5 mL Discontinu suspension ed, 30 mL Routine, Indigestio n alum-mag 0 Yes 30mL 30 mL, Univers hydroxide-s 2-17 Oral, ity of imeth 16:37: Q6HPRN, [place] (MAALOX 49 Starting Medical PLUS / on [facility] Branch MAG-AL 10/20/21 at [facility]) 1037, 200-200-20 Until mg/5 mL Discontinu suspension ed, 30 mL Routine, Indigestio n acetaminoph 2021- No 650mg 650 mg, U nivers en 10-20 Oral, ity of (TYLENOL) 16:16: 17:01 Q6HPRN, [place] tablet 650 26 :51 Starting Medic al mg on [place] 10/20/21 at 1016, Until Sun10/21/21 at 1101, Routine, Pain (scale 1-3) polyethylen 0 Yes 17g 17 g, Unive rs e glycol 2-17 Oral, ity of 3350 powder 15:00: DAILY[place] 17 [place] 00 First dose Medical on [facility] 10/20/21 at 0900, Until Discontinu ed, Routine polyethylen 0 Yes 17g 17 g, Unive rs e glycol 2-17 Oral, ity of 3350 powder 15:00: DAILY[place] 17 g 00 First dose Medical on [facility] 10/20/21 at 0900, Until Discontinu ed, Routine docusate Yes 100mg 100 mg, Unive rs (COLACE) 2-17 Oral, BID, ity o f capsule 100 02:00: First dose [place] mg 00 on Sun [facility] 10/19/21 at Branch 2000, Until Discontinu ed, Routine docusate 0 Yes 100mg 100 mg, Unive rs (COLACE) 2-17 Oral, BID, ity o f capsule 100 02:00: First dose [place] mg 00 on Sun [facility] 10/19/21 at Branch 1999, Until [...] >180
In dication: Hypertensi ve Emergency haloperidol 0 2021- No 5mg 5 mg, Slow Univers lactate 2-16 02-16 IV Push, ity of (HALDOL) 08:42: 08:44 ONCE, 1 [place] injection 5 00 :00 dose, On Medi dayna mg Wed Branch 10/19/21 at 0245, Routine pantoprazol No [...] First dose Me dical L) on Sun injection 10/17/21 at 125 mg 1230, Until [...] mg 00 :38 Starting Medical on Sun Branch 10/17/21 at 1100, Until 10/19/21 at 1133, Routine, Anxiety, Agitation ipratropium 2021-0 Yes 3mL 3 mL, Unive rs -albuteroL 14 Inhalation ity of (DUONEB) 14:00: , Q4H, [place] 0.5 mg-3 00 First dose Medic al mg(2.5 mg on [facility] Branch base)/3 mL 10/17/21 at nebulizer 0800, solution 3 Until mL Discontinu ed, Routine ipratropium 2021-0 Yes 3mL 3 mL, Unive rs -albuteroL 14 Inhalation ity of (DUONEB) 14:00: , Q4H, [place] 0.5 mg-3 00 First dose Medic al mg(2.5 mg on [facility] Branch base)/3 mL 10/17/21 at nebulizer 0800, solution 3 Until mL Discontinu ed, Routine lidocaine 2021-2021- No 5mL 5 mL, Univer s 1% (PF) 10-17 Subcutaneo ity o f (XYLOCAINE) 13:45: 13:45 us, ONCE, [place] injection 5 00 :00 1 dose, On Me dical mL [facility] Branch 10/17/21 at 0745, Routine NaCl 0.9% 2021-0 Yes 10mL 10 mL, Univer s (NS) 2-14 Slow IV ity of injection 13:27: [place], PRN, [place] 10 mL 33 Starting Medical on [facility] Branch 10/17/21 at 0727, Until Discontinu ed, Routine, line maintenanc e NaCl 0.9% 2021-0 Yes 10mL 10 mL, Univer s (NS) 2-14 Slow IV ity of injection 13:27: Push, PRN, [place] 10 mL 33 Starting Medical on [facility] Branch 10/17/21 at 0727, Until Discontinu ed, Routine, line maintenanc e haloperidol 2021-0 2021- No 5mg 5 mg, Slow Univers lactate 10-1714 IV Push, ity of (HALDOL) 04:00: 03:03 ONCE, 1 [place] injection 5 00 :00 dose, On Medi dayna mg [place] Branch 10/16/21 at 2200, Routine busPIRone 2021-0 Yes 5mg 5 mg, Univers (BUSPAR) 2-14 Oral, BID, ity o f tablet 5 mg 02:00: First dose on [place] Medical 10/16/21 at Dawn 1999, Until Discontinu ed, Routine busPIRone Yes 5mg 5 mg, Univers (BUSPAR) 2-14 Oral, BID, ity o f tablet 5 mg 02:00: First dose on [place] Medical 10/16/21 at Dawn 1999, Until Discontinu ed, Routine methylpredn 2021- No 60mg 60 mg, Uni vers isolone sod 10-16 Slow IV ity of succ 23:00: 17:25 Push, Q8H, [place] (SOLU-MEDRO 00 :30 First dose Me dical L) on [facility] injection 10/16/21 at 60 mg 1700, Until Discontinu ed, Routine HYDROcodone No 1{tbl} 1 tablet, Univers -acetaminop 10-16 Oral, ity of hen (NORCO 19:49: 17:01 Q6HPRN, [place] as 5) 5-325 mg 46 :51 Starting Medi dayna tablet 1 on [facility] tablet 10/16/21 at 1349, Until Sun10/21/21 at 1101, Routine, Pain (scale 4-6) cefTRIAXone 2021- No 1000mg 1,000 mg, Univers (ROCEPHIN) 10-16 IV ity of 1,000 mg in 18:30: 18:56 Piggyback, [place] NaCl 0.9% 00 :00 Q24H ABX, Medic al (NS) 50 mL 5 doses, Branc h MINI-BAG First dose on [place] 10/16/21 at 1230, Last dose on Nicole [...] at IV 1230, Last piggyback dose on Tu10/18/21 at 1230, Administer over 60 Minutes, 250 mL
Reas on for Anti-Infec tive: Documented Infection& lt;br>Docu mented Infection Site: Respirator y
Durat ion of Therapy: Other (see Comments) dexMEDEtomi 2021- No .2ug/kg 0.2-1.5 Univers dine 400 10-16 02-17 /h mcg/kg/hr ity o f mcg in [...] 16:47 Push, [place] 0.5 mg 49 :31 [id number], Medical Starting Branch on 10/15/21 at 1543, Until 10/17/21 at 1047, Routine, Anxiety iopamidol 2021- No [id number] 100mL 100 mL, Univers (ISOVUE 10-15 Intravenou [...] ity of 1,000 mg in 09:15: 16:12 [place], [place] NaCl 0.9% 00 :17 Q12H ABX, Medic al (NS) 50 mL First dose [facility] MINI-BAG on 10/15/21 at 0315, [...] Wheezing, Shortness of Breath, Bronchospa sm ipratropium Yes 3mL 3 mL, Unive rs [...] 10/19/21 at 1133, Routine, Pain (scale 7-10) medroxyprog 1 No 1mg/mL esterone 0-21 150 mg/mL 00:00: intramuscul 00 ar suspension metronidazo 2020-09 No 1mg le 500 mg 0-14 tablet 00:00: 00 Flagyl 500 2020-09 No 1mg mg tablet 0-11 00:00: 00 Flagyl 500 1 No 1mg mg tablet 0-11 00:00: 00 medroxyprog 0 No 1mg/mL esterone 6-24 150 mg/mL 00:00: intramuscul 00 ar suspension lurasidone Yes Take by [facility] ers HCl (LATUDA 7-17 mouth. ity of ORAL) 10:16: [place] 57 Medical Branch betamethaso Yes SMILEY EXT AA Univers ne valerate 5-24 BID ity of 0.1 % 00:00: [place] ointment 00 Medical Branch triamterene Yes TK 1 C PO U nivers -hydrochlor 5-24 QAM ity of othiazide 00:00: [place] 37.5-25 mg 00 Medical per capsule Branch betamethaso Yes SMILEY EXT AA Univers ne valerate 5-24 BID ity of 0.1 % 00:00: [place] ointment 00 Medical Branch triamterene Yes TK 1 C PO U nivers -hydrochlor 5-24 QAM ity of othiazide 00:00: [place] 37.5-25 mg 00 Medical per capsule Branch betamethaso Yes SMILEY EXT AA Univers ne valerate 5-24 BID ity of 0.1 % 00:00: [place] ointment 00 Medical Branch triamterene Yes TK 1 C PO U nivers -hydrochlor 5-24 QAM ity of othiazide 00:00: [place] 37.5-25 mg 00 Medical per capsule Branch betamethaso Yes SMILEY EXT AA Univers ne valerate 5-24 BID ity of 0.1 % 00:00: [place] ointment 00 Medical [facility] SMILEY [facility] AA Univers ne valerate 5-24 BID ity of 0.1 % 00:00: [place] ointment 00 Medical Branch [facility] Yes TK 1 C PO U nivers -hydrochlor 5-24 QAM ity of othiazide 00:00: [place] 37.5-25 mg 00 Medical per capsule Branch [facility] Yes TK 1 C PO U nivers -hydrochlor 5-24 QAM ity of othiazide 00:00: [place] 37.5-25 mg 00 Medical per [facility] SMILEY EXT AA Univers ne valerate 5-24 BID ity of 0.1 % 00:00: [place] ointment 00 Medical Branch [facility] Yes TK 1 C PO U nivers -hydrochlor 5-24 QAM ity of othiazide 00:00: [place] 37.5-25 mg 00 Medical per capsule [facility] SMILEY EXT AA Univers ne valerate 5-24 BID ity of 0.1 % 00:00: [place] ointment 00 Medical Branch [facility] Yes TK 1 C PO U nivers -hydrochlor 5-24 QAM ity of othiazide 00:00: [place] 37.5-25 mg 00 Medical per capsule [facility] SMILEY EXT AA Univers ne valerate 5-24 BID ity of 0.1 % 00:00: [place] ointment 00 Medical Branch [facility] Yes TK 1 C PO U nivers -hydrochlor 5-24 QAM ity of othiazide 00:00: [place] 37.5-25 mg 00 Medical per capsule Branch betamethaso 2021- No SMILEY EXT AA Univers ne valerate 5-24 04-04 BID ity of 0.1 % 00:00: 00:00 [place] ointment 00 :00 Medical Branch [facility] 2021- No TK 1 C PO Univers -hydrochlor 5-24 04-04 QAM ity of othiazide 00:00: 00:00 [place] 37.5-25 mg 00 :00 Medical per [facility] Branch DEXILANT 60 Yes TK 1 C PO U nivers mg capsule 05-31 QD ity of 00:00: [place] Medical Branch DEXILANT 60 Yes TK 1 C PO U nivers mg capsule 05-31 QD ity of 00:00: [place] [facility] Branch DEXILANT 60 Yes TK 1 C PO U nivers mg capsule 05-31 QD ity of 00:00: [place] [facility] DEXILANT 60 Yes TK 1 C PO U nivers mg capsule 05-31 QD ity of 00:00: [place] [facility] DEXILANT 60 Yes TK 1 C PO U nivers mg capsule 05-31 QD ity of 00:00: [place] [facility] DEXILANT 60 Yes TK 1 C PO U nivers mg capsule 05-31 QD ity of 00:00: [place] [facility] DEXILANT 60 Yes TK 1 C PO U nivers mg capsule 05-31 QD ity of 00:00: Medical Branch DEXILANT 60 Yes TK 1 C PO U nivers mg capsule 05-31 QD ity of 00:00: [place] [facility] DEXILANT 60 2022- No TK 1 C PO Univers mg capsule 05-31 04-04 QD ity of 00:00: 00:00 [place] 00 :00 Medical Branch proMETHazin Yes TK [...] tablet 3-21 Q NIGHTLY ity of 00:00: [place] [facility] amLODIPine Yes TK 1 T PO Un guillermina 5 mg tablet 3-21 Q NIGHTLY ity of 00:00: [place] [facility] amLODIPine Yes TK 1 T PO Un guillermina 5 mg tablet 3-21 Q NIGHTLY ity of 00:00: [place] [facility] amLODIPine 2021- No TK 1 T PO U nivers 5 mg tablet 3-21 04-04 Q NIGHTLY it y of 00:00: 00:00 00 : Medical Branch HYDROcodone Yes 1{tbl} Take 1 [...] 4-16 tablet 00:00: 00 betamethaso 2013-0 Yes [id number] Apply to Univers ne 2-13 area(s) ity of dipropionat 00:00: two (2) [place] as e 00 times Medical (DIPROLENE) daily. Branch 0.05 % cream betamethaso 2013-0 Yes [id number] Apply to Univers ne 2-13 area(s) ity of dipropionat 00:00: two (2) [place] as e 00 times Medical (DIPROLENE) daily. Branch 0.05 % cream betamethaso 2013-0 Yes [id number] Apply to Univers ne 2-13 area(s) ity of dipropionat 00:00: two (2) [place] as e 00 times Medical (DIPROLENE) daily. Branch 0.05 % cream betamethaso 2013-0 Yes [id number] Apply to Univers ne 2-13 area(s) ity of dipropionat 00:00: two (2) [place] as e 00 times Medical (DIPROLENE) daily. Branch 0.05 % cream betamethaso 2013-0 Yes [id number] Apply to Univers ne 2-13 area(s) ity of dipropionat 00:00: two (2) [place] as e 00 times Medical (DIPROLENE) daily. Branch 0.05 % cream betamethaso 2013-0 Yes [id number] Apply to Univers ne 2-13 area(s) ity of dipropionat 00:00: two (2) [place] as e 00 times Medical (DIPROLENE) daily. Branch 0.05 % cream betamethaso 2012- Yes [id number] Apply to [facility] 2-13 area(s) ity of dipropionat 00:00: two (2) [place] as e 00 times Medical (DIPROLENE) daily. Branch 0.05 % cream betamethaso 2012- Yes [id number] Apply to [facility] 2-13 area(s) ity of dipropionat 00:00: two (2) [place] as e 00 times Medical (DIPROLENE) daily. Branch 0.05 % cream betamethaso 2012-2- No [id number] Apply to [facility] 2-13 04-04 area(s) ity of dipropionat 00:00: 00:00 [place] e 00 :00 times Medical (DIPROLENE) daily. Branch 0.05 % cream Immunizations Ordered Filled Immunization Date Status Comments [facility] e Immunization Name Name SARS-COV-2 COVID-19 2021-03-03 Completed Unive rsity of MODERNA VACCINE 00:00:00 [facility] ical Branch SARS-COV-2 COVID-19 2021-03-03 Completed Unive rsity of MODERNA VACCINE 00:00:00 [facility] ical Branch SARS-COV-2 COVID-19 2021-03-03 Completed Unive rsity of MODERNA VACCINE 00:00:00 [facility] ical Branch SARS-COV-2 COVID-19 2021-03-03 Completed Unive rsity of MODERNA VACCINE 00:00:00 [facility] ical Branch SARS-COV-2 COVID-19 2021-03-03 Completed Unive rsity of MODERNA VACCINE 00:00:00 [facility] ical Branch SARS-COV-2 COVID-19 2021-03-03 Completed Unive rsity of MODERNA VACCINE 00:00:00 [facility] ical Branch SARS-COV-2 COVID-19 2021-03-03 Completed Unive rsity of MODERNA 12+ YRS 00:00:00 [facility] ical VACCINE Branch SARS-COV-2 COVID-19 2021-03-03 Completed [...] Completed Unive rsity of MODERNA VACCINE 00:00:00 [facility] SARS-COV-2 COVID-19 2021-02-01 Completed Unive rsity of MODERNA VACCINE 00:00:00 [facility] SARS-COV-2 COVID-19 2021-02-01 Completed Unive rsity of MODERNA VACCINE 00:00:00 [facility] SARS-COV-2 COVID-19 2021-02-01 Completed Unive rsity of MODERNA VACCINE 00:00:00 [facility] SARS-COV-2 COVID-19 2021-02-01 Completed Unive rsity of MODERNA VACCINE 00:00:00 [facility] Influenza, 2020-09-02 Completed seasonal, inj 00:00:00 Influenza Virus 2007-07-02 Completed Universit y of Vaccine 00:00:00 [facility] Influenza Virus 2007-07-02 Completed Universit y of Vaccine 00:00:00 [facility] Influenza Virus 2007-07-02 Completed Universit y of Vaccine 00:00:00 [facility] Influenza Virus 2007-07-02 Completed Universit y of Vaccine 00:00:00 [facility] Influenza Virus 2007-07-02 Completed Universit y of Vaccine 00:00:00 [facility] Influenza Virus 2007-07-02 Completed Universit y of Vaccine 00:00:00 [facility] Influenza Virus 2007-07-02 Completed Universit y of Vaccine 00:00:00 [facility] Influenza Virus 2007-07-02 Completed Universit y of Vaccine 00:00:00 [facility] Influenza Virus 2007-07-02 Completed Universit y of Vaccine 00:00:00 [facility] Influenza Virus 2007-07-02 Completed Universit y of Vaccine 00:00:00 [facility] Influenza Virus 2007-07-02 Completed Universit y of Vaccine 00:00:00 [facility] Influenza Virus 2007-07-02 Completed Universit y of Vaccine 00:00:00 [facility] Influenza Virus 2007-07-02 Completed Universit y of Vaccine 00:00:00 [facility] Influenza Virus 2007-07-02 Completed Universit y of Vaccine 00:00:00 [facility] Influenza Virus 2007-07-02 Completed Universit y of Vaccine 00:00:00 [facility] Influenza Virus 2007-07-02 Completed Universit y of Vaccine 00:00:00 [facility] Influenza Virus 2007-07-02 Completed Universit y of Vaccine 00:00:00 [facility] Influenza Virus 2007-07-02 Completed Universit y of Vaccine 00:00:00 [facility] Influenza Virus 2007-07-02 Completed Universit y of Vaccine 00:00:00 [facility] Influenza Virus 2007-07-02 Completed Universit y of Vaccine 00:00:00 [facility] Influenza Virus 2007-07-02 Completed Universit y of Vaccine 00:00:00 [facility] Influenza Virus 2007-07-02 Completed Universit y of Vaccine 00:00:00 [facility] Vital Signs Vital Name Observation Time Observation Value Comments Source Height 2022-07-20 13:40:00 160.02 CM Weight 2022-07-20 13:40:00 89.81 KG Height 2022-07-20 11:04:00 160.02 CM Weight 2022-07-20 11:04:00 81.64 KG Systolic blood 2022-06-26 00:42:00 132 mm[Hg] Univer sity of pressure [facility] Diastolic blood 2022-06-26 00:42:00 81 mm[Hg] Unive rsity of pressure [facility] Heart rate 2022-06-26 00:42:00 104 /min [facility] Body temperature 2022-06-26 00:42:00 36.67 Carleen [facility] Respiratory rate 2022-06-26 00:42:00 18 /min [facility] Oxygen saturation in 2022-06-26 00:42:00 96 /min [facility] Arterial blood by [facility] Pulse oximetry [place] Body height 2022-06-25 00:54:00 160 cm [facility] Body weight 2022-06-25 00:54:00 98.884 kg [facility] BMI 2022-06-25 00:54:00 38.62 kg/m2 [facility] Height 2022-06-23 19:31:00 160.02 CM Weight 2022-06-23 19:31:00 86.18 KG Weight 2022-06-21 20:00:00 98.88 KG Height 2022-06-12 15:55:00 160.02 CM Weight 2022-06-12 15:55:00 81.64 KG Systolic blood 2022-06-01 03:00:00 167 mm[Hg] Univer sity of pressure [place] [facility] Diastolic blood 2022-06-01 03:00:00 102 mm[Hg] Unive rsity of pressure [place] [facility] Heart rate 2022-06-01 03:00:00 94 /min Universi ty of [place] [facility] Respiratory rate 2022-06-01 03:00:00 20 /min Univ ersity of [place] [facility] Oxygen saturation in 2022-06-01 03:00:00 98 /min University of Arterial blood by [place] [employer] [facility] Pulse oximetry Branch Body height 2022-06-01 01:17:00 160 cm Universi ty of [place] [facility] Body weight 2022-06-01 01:17:00 89.812 kg Universi ty [facility] [place] [facility] BMI 2022-06-01 01:17:00 35.07 kg/m2 [facility] [place] [facility] Height 2022-04-05 15:26:00 160.02 CM Weight 2022-04-05 15:26:00 90.26 KG Systolic blood 2022-02-26 13:59:00 136 mm[Hg] Univer sity of pressure [place] [facility] Diastolic blood 2022-02-26 13:59:00 101 mm[Hg] Unive rsity of pressure [place] [facility] Heart rate 2022-02-26 13:59:00 79 /min Universi ty of [place] [facility] Body temperature 2022-02-26 13:59:00 36.78 Carleen Univ ersity of [place] [facility] Respiratory rate 2022-02-26 13:59:00 20 /min Univ ersity of [place] [facility] Oxygen saturation in 2022-02-26 13:59:00 100 /min University of Arterial blood by [employer] day[facility] Pulse oximetry Branch Body height 2022-02-26 04:37:00 160 cm Universi ty of [place] [facility] Body weight 2022-02-26 04:37:00 92.08 kg Universi ty [facility] [place] [facility] BMI 2022-02-26 04:37:00 35.96 kg/m2 [facility] [place] [facility] Systolic blood 2022-02-23 06:00:00 115 mm[Hg] Univer sity of pressure [place] [facility] Diastolic blood 2022-02-23 06:00:00 83 mm[Hg] Unive rsity of pressure [place] [facility] Heart rate 2022-02-23 06:00:00 62 /min Universi ty of [place] [facility] Respiratory rate 2022-02-23 06:00:00 18 /min Univ ersity of [place] [facility] Oxygen saturation in 2022-02-23 06:00:00 97 /min University of Arterial blood by [place] Pulse oximetry Branch Body temperature 2022-02-23 02:45:00 37.83 Carleen Univ ersity of [place] [facility] Body height 2022-02-23 02:45:00 160 cm Universi ty [facility] [place] [facility] Body weight 2022-02-23 02:45:00 92.08 kg Universi ty [facility] [place] [facility] BMI 2022-02-23 02:45:00 35.96 kg/m2 [facility] [place] [facility] Systolic blood 2022-01-29 21:54:12 118 mm[Hg] Univer sity of pressure [place] [facility] Diastolic blood 2022-01-29 21:54:12 74 mm[Hg] Unive rsity of pressure [place] [facility] Heart rate 2022-01-29 21:54:12 98 /min [facility]i ty [facility] [place] [facility] Respiratory rate 2022-01-29 21:54:12 24 /min Univ ersity of [place] [facility] Oxygen saturation in 2022-01-29 21:54:12 98 /min University of Arterial blood by [place] [employer] [facility] Pulse oximetry Branch Body temperature 2022-01-29 18:53:00 37 Carleen Univ ersity of [place] [facility] Body height 2022-01-29 18:53:00 160 cm [facility]i ty [facility] [place] [facility] Body weight 2022-01-29 18:53:00 90.719 kg Universi ty of [place] [facility] BMI 2022-01-29 18:53:00 35.43 kg/m2 [facility] [place] [facility] Systolic blood 2022-01-29 15:01:00 138 mm[Hg] Univer sity of pressure [place] [facility] Diastolic blood 2022-01-29 15:01:00 82 mm[Hg] Unive rsity of pressure [place] [facility] Heart rate 2022-01-29 15:01:00 88 /min [facility]i ty [facility] [place] [facility] Respiratory rate 2022-01-29 15:01:00 15 /min Univ ersity of [place] [facility] Oxygen saturation in 2022-01-29 15:01:00 96 /min University of Arterial blood by [facility] Pulse oximetry Branch Body temperature 2022-01-29 12:58:00 36.61 Carleen Univ ersity of [place] [facility] Body weight 2022-01-29 12:58:00 81.647 kg [facility] [place] [facility] BMI 2022-01-29 12:58:00 31.89 kg/m2 [facility] [place] [facility] Height 2022-01-05 08:28:00 160.02 CM Weight 2022-01-05 08:28:00 81.64 KG Systolic blood 2022-01-03 04:43:12 152 mm[Hg] Univer sity of pressure [place] [facility] Diastolic blood 2022-01-03 04:43:12 112 mm[Hg] Unive rsity of pressure [place] [facility] Body temperature 2022-01-03 04:43:12 37.28 Carleen Univ ersity of [place] [facility] Respiratory rate 2022-01-03 04:43:12 17 /min Univ ersity of [place] [facility] Heart rate 2022-01-03 04:42:33 88 /min [facility]i [facility] [place] [facility] Oxygen saturation in 2022-01-03 04:42:33 97 /min University of Arterial blood by [facility] Pulse oximetry Branch Body height 2022-01-03 02:36:00 160 cm [facility] [place] [facility] Body weight 2022-01-03 02:36:00 81.647 kg [facility] [place] [facility] BMI 2022-01-03 02:36:00 31.89 kg/m2 [facility] [place] [facility] Body temperature 2021-12-07 13:30:00 37.17 Carleen Univ ersity [facility] [place] [facility] Respiratory rate 2021-12-07 13:30:00 23 /min Univ ersity of [place] [facility] Oxygen saturation in 2021-12-07 13:14:00 97 /min University of Arterial blood by [facility] Pulse oximetry Branch Systolic blood 2021-12-07 09:00:00 157 mm[Hg] Univer sity of pressure [place] [facility] Diastolic blood 2021-12-07 09:00:00 99 mm[Hg] [facility] Heart rate 2021-12-07 09:00:00 82 /min [facility] Body weight 2021-12-07 08:10:00 95.709 kg [facility] BMI 2021-12-07 08:10:00 37.38 kg/m2 [facility] Body height 2021-12-06 06:30:00 160 cm [facility] Systolic blood 2021-12-05 09:10:00 126 mm[Hg] [facility] Diastolic blood 2021-12-05 09:10:00 71 mm[Hg] [facility] Heart rate 2021-12-05 09:10:00 85 /min [facility] Body temperature 2021-12-05 09:10:00 36.83 Carleen [facility] Respiratory rate 2021-12-05 09:10:00 18 /min [facility] Oxygen saturation in 2021-12-05 09:10:00 96 /min [facility] Arterial blood by [employer] [facility] oxim[facility] Body height 2021-12-03 23:16:00 160 cm [facility] Body weight 2021-12-03 23:16:00 81.647 kg [facility] BMI 2021-12-03 23:16:00 31.89 kg/m2 [facility] Systolic blood 2021-11-11 18:12:00 152 mm[Hg] [facility] Diastolic blood 2021-11-11 18:12:00 93 mm[Hg] [facility] Heart rate 2021-11-11 18:12:00 108 /min [facility] Body temperature 2021-11-11 18:12:00 37.06 Carleen [facility] Respiratory rate 2021-11-11 18:12:00 20 /min [facility] Oxygen saturation in 2021-11-11 18:12:00 95 /min [facility] blood by [employer] [facility] Body height 2021-11-10 17:22:00 160 cm [facility] Body weight 2021-11-10 17:22:00 91 kg [facility] BMI 2021-11-10 17:22:00 35.54 kg/m2 [facility] Systolic blood 2021-10-24 17:05:00 143 mm[Hg] [facility] Diastolic blood 2021-10-24 17:05:00 90 mm[Hg] [facility] Heart rate 2021-10-24 17:05:00 103 /min [facility] Body temperature 2021-10-24 17:05:00 36.22 Carleen [facility] Respiratory rate 2021-10-24 17:05:00 18 /min [facility] Oxygen saturation in 2021-10-24 17:05:00 95 /min [facility] [place] [employer] [facility] Body weight 2021-10-22 10:08:00 71.215 kg bed scale [facility] BMI 2021-10-22 10:08:00 28.72 kg/m2 [facility] Body height 2021-10-17 14:00:00 157.5 cm [facility] Systolic blood 2021-10-21 15:36:00 129 mm[Hg] [facility] Diastolic blood 2021-10-21 15:36:00 82 mm[Hg] [facility] Heart rate 2021-10-21 15:36:00 100 /min [facility] Respiratory rate 2021-10-21 15:36:00 20 /min [facility] Oxygen saturation in 2021-10-21 15:36:00 100 /min [facility] [place] [employer] [facility] Body temperature 2021-10-21 13:07:00 36.83 Carleen [facility] Body height 2021-10-17 14:00:00 157.5 cm [facility] Body weight 2021-10-17 14:00:00 99.791 kg [facility] BMI 2021-10-17 14:00:00 28.72 kg/m2 [facility] BP Systolic 2022-04-15 13:48:00 155 [...] Date / Time Performing Clinician Source Performed TROPONIN I 2022-06-25 13:36:00 Sunday Sharma [facility] THYROID STIMULATING 2022-06-25 13:36:00 Kimber Lucasammed [facility] HORMONE [facility] TROPONIN I 2022-06-25 10:40:00 Sunday Sharma [facility] CT ANGIOGRAM CHEST 2022-06-25 08:02:00 Sunday Sharma [facility] EKG-12 LEAD 2022-06-25 05:02:32 Jaden Siddiqui [facility] URINALYSIS 2022-06-25 03:47:00 Edgard [facility] TROPONIN I 2022-06-25 03:35:00 Edgard [facility] COMP. METABOLIC PANEL 2022-06-25 03:35:00 Jaden Siddiqui [facility] ([id number]) [facility] CBC WITH DIFF 2022-06-25 03:35:00 Edgard [facility] PROTHROMBIN TIME / INR 2022-06-25 03:35:00 Jaden Siddiqui [facility] D-DIMER 2022-06-25 03:35:00 Anaya Kline [facility] N-TERMINAL PRO-BNP 2022-06-25 03:35:00 Jaden Siddiqui [facility] CONSENT/REFUSAL FOR 2022-06-25 00:16:13 Doctor Unananci, [facility] DIAGNOSIS AND TREATMENT [facility] XR CHEST 1 VW 2022-06-24 14:12:00 Edgard [facility] [place] [place] INTRO ANES AGT PERIPH 2022-06-15 00:00:00 [facility] NRV\\T\\PLEXI PC Center INTRO AIF PERIPH NRV 2022-06-15 00:00:00 [facility] PLEXI PERQ Center AUTHORIZATION FOR RELEASE 2022-06-08 05:01:00 Doctor Unananci, [facility] XR CHEST 1 VW 2022-06-01 02:07:14 Gabriel Garcia [place] [facility] [place] XR KNEE <3 VW RIGHT 2022-06-01 02:07:14 Gabriel Garcia [facility] XR SHOULDER 2+ VW RIGHT 2022-06-01 02:07:14 Gabriel Garcia [facility] CT CERVICAL SPINE WO 2022-06-01 02:05:05 Gabriel Garcia [facility] CONTRAST [facility] Branch CT HEAD WO CONTRAST 2022-06-01 02:05:05 Gabriel Garcia [facility] CONSENT/REFUSAL FOR 2022-06-01 01:15:31 Doctor Unananci, [facility] DIAGNOSIS AND TREATMENT [facility] INTRO ANES AGT PERIPH 2022-05-11 00:00:00 [facility]\\T[facility] INTRO AIF PERIPH NRV 2022-05-11 00:00:00 [facility] PLEXI PERQ Center INTRO ANES AGT PERIPH 2022-04-06 00:00:00 [facility] NRV\\T\\[facility]XI PC Center INTRO AIF PERIPH NRV 2022-04-06 00:00:00 [facility] PER Center ASSIGNMENT OF BENEFITS 2022-03-14 20:14:00 Doctor Unassigned, Un [facility] THORAX WO CONTRAST 2022-02-26 13:20:05 Anaya Kline [facility] BASIC METABOLIC PANEL 2022-02-26 09:29:00 [facility] (NA, K, CL, CO2, GLUCOSE, Medica l Branch BUN, CREATININE, CA) CBC WITH DIFF 2022-02-26 09:29:00 Anaya Kline [facility] EKG-12 LEAD 2022-02-26 06:20:06 Sobeida Samson [facility] LIPASE 2022-02-26 03:28:00 Sobeida Samson [facility] TROPONIN I 2022-02-26 03:28:00 Sobeida Samson [facility] COMP. METABOLIC PANEL 2022-02-26 03:28:00 Sobeida Samson [facility] ([id number]) [facility] CBC WITH DIFF 2022-02-26 03:28:00 Sobeida Samson [facility] N-TERMINAL PRO-BNP 2022-02-26 03:28:00 Sobeida Samson [facility] XR CHEST 1 VW 2022-02-26 01:52:00 Sobeida Samson [facility] COVID-19 (ID NOW RAPID 2022-02-26 01:03:00 Sobeida Samson Un [facility] TESTING) [facility] CT HEAD WO CONTRAST 2022-02-25 23:59:38 Sobeida Samson [facility] CONSENT/REFUSAL FOR 2022-02-25 22:55:28 Doctor Unassigned, [facility] DIAGNOSIS AND TREATMENT [facility] EKG-12 LEAD 2022-02-23 06:15:35 Bro Ann [facility] TROPONIN I 2022-02-23 05:20:00 Bro Ann [facility] XR CHEST 2 VW 2022-02-23 03:47:00 Bro Ann [facility] URINALYSIS 2022-02-23 03:26:00 Bro Ann [facility] TROPONIN I 2022-02-23 03:12:00 Bro Ann [facility] COMP. METABOLIC PANEL 2022-02-23 03:12:00 [id number] CBC WITH DIFF 2022-02-23 03:12:00 [facility]FLU[facility]/B 2022-02-23 03:12:00 Bro Ann [facility] N-TERMINAL PRO-BNP 2022-02-23 03:12:00 Bro Ann [facility] COVID-19 (ID NOW RAPID 2022-02-23 03:12:00 Bro Ann [facility] TESTING) [facility] CONSENT/REFUSAL FOR 2022-02-23 02:38:26 Doctor Unananci, [facility] DIAGNOSIS AND TREATMENT [facility] XR LUMBAR SPINE 2 VW 2022-01-29 20:25:58 Jaden Siddiqui [facility] CONSENT/REFUSAL FOR 2022-01-29 18:42:46 Doctor Casandra [facility] DIAGNOSIS AND TREATMENT [facility] XR CHEST 1 VW 2022-01-29 13:43:00 Mai Del Rosario [facility] TROPONIN I 2022-01-29 13:34:00 Mai Del Rosario [facility] COMP. METABOLIC PANEL 2022-01-29 13:34:00 Mai Del Rosario [facility] ([id number]) Medical Branch CBC WITH DIFF 2022-01-29 13:34:00 Mai Del Rosario [facility] N-TERMINAL PRO-BNP 2022-01-29 13:34:00 Mai Del Rosario [facility] AC PANEL 21 + LACTIC ACID 2022-01-29 13:34:00 Mai Del Rosario [facility] CONSENT/REFUSAL FOR 2022-01-29 12:47:51 Doctor Casandra [facility] DIAGNOSIS AND TREATMENT [facility] INTRO ANES AGT PERIPH 2022-01-05 00:00:00 [facility] NRV\\T\\PLEXI PC Center INTRO AIF PERIPH NRV 2022-01-05 00:00:00 [facility] PLEXI PERQ Center XR CHEST 1 VW 2022-01-03 04:29:34 Jacklyn Guillen [facility] CONSENT/REFUSAL FOR 2022-01-03 02:30:38 Doctor Unassigned, [facility] DIAGNOSIS AND TREATMENT [facility] MAGNESIUM 2021-12-07 09:01:00 David Lazo [facility] COMP. METABOLIC PANEL 2021-12-07 09:01:00 Gely Hernandez [facility] ([id number]) [facility] CBC WITH DIFF 2021-12-07 09:01:00 Clifton [facility] N-TERMINAL PRO-BNP 2021-12-07 09:01:00 Gely Hernandez [facility] URINALYSIS 2021-12-06 16:46:00 Mary ady [facility] URINE CULTURE 2021-12-06 16:46:00 Gely Hernandez [facility] PHOSPHORUS 2021-12-06 10:11:00 Mary ady [facility] MAGNESIUM 2021-12-06 10:11:00 Mary ady [facility] VITAMIN B12, LEVEL 2021-12-06 10:11:00 Gely Hernandez [facility] C-REACTIVE PROTEIN 2021-12-06 10:11:00 Gely Hernandez [facility] TROPONIN I 2021-12-06 10:11:00 Gely Hernandez [facility] FREE T4 2021-12-06 10:11:00 Mary ady [facility] COMP. METABOLIC PANEL 2021-12-06 10:11:00 Gely Hernandez [facility] ([id number]) [facility] SEDIMENTATION RATE 2021-12-06 10:11:00 Gely Hernandez [facility] CBC WITH DIFF 2021-12-06 10:11:00 Mary ady [facility] N-TERMINAL PRO-BNP 2021-12-06 10:11:00 Gely Hernandez [facility] VITAMIN D, 25-OH 2021-12-06 10:11:00 Mary ady [facility] FREE T3 2021-12-06 10:11:00 Mary ady [facility] PROCALCITONIN 2021-12-06 10:11:00 Mary [facility] AC VBG + LACTIC ACID 2021-12-06 10:10:00 Gely Hernandez [facility] COVID-19 (ID NOW RAPID 2021-12-06 00:09:00 Christos Tovar [facility] TESTING) Medical Branch LAB ONLY COVID 2021-12-06 00:09:00 Christos Tovar [facility] URIC ACID 2021-12-06 00:07:00 Mary ady [facility] FERRITIN SERUM 2021-12-06 00:07:00 Mary [facility] TROPONIN I 2021-12-06 00:07:00 Christos Tovar [facility] THYROID STIMULATING 2021-12-06 00:07:00 Gely Hernandez [facility] HORMONE [facility] COMP. METABOLIC PANEL 2021-12-06 00:07:00 Christos Tovar [facility] ([id number]) Medical Branch LIPID PANEL ([id number])(TOTAL 2021-12-06 00:07:00 Gely Hernandez [facility] CHOLESTEROL, [facility] TRIGLYCERIDES, HDL) IRON PANEL 2021-12-06 00:07:00 Mary ady [facility] DIFF CONSULT 2021-12-06 00:07:00 Mary ady [facility] CBC WITH DIFF 2021-12-06 00:07:00 Christos Tovar [facility] GLYCOSYLATED HEMOGLOBIN 2021-12-06 00:07:00 Mary ady [facility] ([id number]) Medical Branch PROTHROMBIN TIME / INR 2021-12-06 00:07:00 Christos Tovar [facility] ACTIVATED PARTIAL 2021-12-06 00:07:00 [facility] THRMPLAS ANTONINO [facility] N-TERMINAL PRO-BNP 2021-12-06 00:07:00 Christos Tovar [facility] HB ECG ROUTINE & RHYTHM 2021-12-06 00:05:16 Christos Tovar [facility] XR CHEST 1 VW 2021-12-05 23:50:38 Christos Tovar [facility] ASSIGNMENT OF BENEFITS 2021-12-05 23:47:08 Doctor Unassigned, [facility] NOTICE OF PRIVACY 2021-12-05 22:03:59 Doctor Unassigned, [facility] PRACTICES [facility] CONSENT/REFUSAL FOR 2021-12-05 22:03:42 Doctor Unananci, [facility] DIAGNOSIS AND TREATMENT [facility] CT ANGIOGRAM CHEST 2021-12-04 20:47:[address] [facility] LACTIC ACID WHOLE BLOOD 2021-12-04 15:19:00 Michel [facility] BLOOD CULTURE SCREEN 2021-12-04 10:21:00 Donal You [facility] LACTIC ACID WHOLE BLOOD 2021-12-04 09:08:00 Deloris Youshua [facility] BASIC METABOLIC PANEL 2021-12-04 09:07:00 Wilfrid Pearson [facility] (NA, K, CL, CO2, GLUCOSE, [facility] BUN, CREATININE, CA) CBC WITH DIFF 2021-12-04 09:07:00 [facility] 2021-12-03 21:29:00 Maury Brush [facility] AC ABG + LACTIC ACID 2021-12-03 21:13:00 Maury Brush [facility] AMYLASE 2021-12-03 21:12:00 Maury Brush [facility] LIPASE 2021-12-03 21:12:00 Maury Brush [facility] TROPONIN I 2021-12-03 21:12:00 Maury Brush [facility] COMP. METABOLIC PANEL 2021-12-03 21:12:00 Maury Brush [facility] ([id number]) [facility] CBC WITH DIFF 2021-12-03 21:12:00 Maury Brush [facility] N-TERMINAL PRO-BNP 2021-12-03 21:12:00 Maury Brush [facility] PROCALCITONIN 2021-12-03 21:12:00 Anaya Kline [facility] XR CHEST 1 VW 2021-12-03 20:52:01 Maury Brush [facility] URINALYSIS 2021-12-03 20:34:00 Maury Brush [facility] COVID-19 (ID NOW RAPID 2021-12-03 20:34:00 Maury Brush Un [facility] TESTING) [facility] AUTHORIZATION FOR RELEASE 2021-11-23 05:01:00 Doctor [facility] EKG-12 LEAD 2021-11-11 05:25:58 Sobeida Samson [facility] BASIC METABOLIC PANEL 2021-11-10 09:16:00 Michel Wilfrid [facility] (NA, K, CL, CO2, GLUCOSE, Medica l Branch BUN, CREATININE, CA) CBC WITH DIFF 2021-11-10 09:16:00 Nikareyna [facility] LACTIC ACID WHOLE BLOOD 2021-11-10 09:16:00 Sobeida Samson [facility] CT CHEST PULMONARY 2021-11-10 04:49:21 Sobeida Samson [facility] ANGIOGRAM [facility] BLOOD CULTURE SCREEN 2021-11-10 03:58:00 Sobeida Samson [facility] BLOOD CULTURE WORKUP 2021-11-10 03:58:00 Sobeida Samson [facility] BLOOD CULTURE SCREEN 2021-11-10 02:56:00 Sobeida Samson [facility] PROTHROMBIN TIME / INR 2021-11-10 01:47:00 Sobeida Samson Un [facility] D-DIMER 2021-11-10 01:47:00 Sobeida Samson [facility] ACTIVATED PARTIAL 2021-11-10 01:47:00 Sobeida Samson [facility] THRLAS ANTONINO [facility] COVID-19 (ID NOW RAPID 2021-11-10 01:47:00 Sobeida Samson Un [facility] TESTING) Medical Branch LAB ONLY COVID 2021-11-10 01:47:00 Sobeida Samson [facility] INTERPRETATION [facility] AC ABG + LACTIC ACID 2021-11-10 01:45:00 Sobeida Samson [facility] XR CHEST 1 VW 2021-11-10 01:38:00 Sobeida Samson [facility] COMP. METABOLIC PANEL 2021-11-10 01:32:00 Sobeida Samson [facility] ([id number]) [facility] CBC WITH DIFF 2021-11-10 01:32:00 Sobeida Samson [facility] CONSENT/REFUSAL FOR 2021-11-10 00:42:41 Doctor Casandra, [facility] DIAGNOSIS AND TREATMENT [facility] AUTHORIZATION FOR RELEASE 2021-11-07 06:01:00 Doctor [facility]anci[facility] EXTERNAL PROVIDER - 2021-11-03 06:01:00 Doctor Casandra, [facility] WOMEN'S SERVICES [facility] RADIOLOGY XR CHEST 1 VW 2021-10-24 18:45:48 Abu Mali [facility] XR CHEST 1 VW 2021-10-24 18:45:48 Abu [facility] BASIC METABOLIC PANEL 2021-10-24 12:36:00 Benjamin Gross [facility] (NA, K, CL, CO2, GLUCOSE, [facility]ica [facility] Branch BUN, CREATININE, CA) CBC WITHOUT DIFF 2021-10-24 12:36:00 [facility] BASIC METABOLIC PANEL 2021-10-24 12:36:00 Renato [facility] (NA, K, CL, CO2, GLUCOSE, [facility]ica [facility] Branch BUN, CREATININE, CA) CBC WITHOUT DIFF 2021-10-24 12:36:00 [facility] X[facility] CHEST 1 VW 2021-10-22 15:58:26 Abu Sher [facility] XR CHEST 1 VW 2021-10-22 15:58:26 Sunday Sharma [facility] MAGNESIUM 2021-10-22 10:47:00 Rose [facility] BASIC METABOLIC PANEL 2021-10-22 10:47:00 Rose [facility] (NA, K, CL, CO2, GLUCOSE, Medica [facility] Branch BUN, CREATININE, CA) CBC WITH DIFF 2021-10-22 10:47:00 Rose [facility] MAGNESIUM 2021-10-22 10:47:00 Ezkevin [facility] BASIC METABOLIC PANEL 2021-10-22 10:47:00 Rose [facility] (NA, K, CL, CO2, GLUCOSE, Medica [facility] Branch BUN, CREATININE, CA) CBC WITH DIFF 2021-10-22 10:47:00 Rose [facility] XR CHEST 1 VW 2021-10-21 22:10:00 Abki Sharma [facility] XR CHEST 1 VW 2021-10-21 22:10:00 Abu Sher [facility] AC PANEL 20 + LACTIC ACID 2021-10-21 20:28:00 Sunday Sharma [facility] AC PANEL 20 + LACTIC ACID 2021-10-21 20:28:00 Sunday Sharma [facility] CYTO BAL 2021-10-21 18:49:00 Sunday Sharma [facility] BODY FLUID DIRECT COUNT 2021-10-21 18:47:00 Anaya Kline [facility] BODY FLUID DIRECT COUNT 2021-10-21 18:47:00 Anaya Kline [facility] AFB CULTURE 2021-10-21 18:46:00 Anaya Kline [facility] FUNGUS (ROUTINE) CULTURE 2021-10-21 18:46:00 Anaya Kline [facility] MYCOBACTERIUM 2021-10-21 18:46:00 Anaya Kline [facility] TUBERCULOSIS COMPLEX PCR [facility] RESPIRATORY PANEL BY PCR 2021-10-21 18:46:00 Anaya Kline [facility] AFB CULTURE 2021-10-21 18:46:00 Anaya Kline [facility] FUNGUS (ROUTINE) CULTURE 2021-10-21 18:46:00 Anaya Kline [facility] MYCOBACTERIUM 2021-10-21 18:46:00 Anaya Kline [facility] TUBERCULOSIS COMPLEX PCR [facility] RESPIRATORY PANEL BY PCR 2021-10-21 18:46:00 [facility] BASIC METABOLIC PANEL 2021-10-21 18:44:00 Anaya [facility]line [facility] (NA, K, CL, CO2, GLUCOSE, Medica [facility] Branch BUN, CREATININE, CA) BASIC METABOLIC PANEL 2021-10-21 18:44:00 Anaya Kline [facility] (NA, K, CL, CO2, GLUCOSE, Medica [facility] Branch BUN, CREATININE, CA) CBC WITH DIFF 2021-10-21 18:41:00 Anaya Dovre [facility] PROTHROMBIN TIME / INR 2021-10-21 18:41:00 Sunday Sharma [facility] FIB[facility]EN 2021-10-21 18:41:00 ki Malilewis Anaya [facility] CBC WITH DIFF 2021-10-21 18:41:00 Sunday Samsonlewis Case[facility] PROTHROMBIN TIME / INR 2021-10-21 18:41:00 Sunday Sharma Anaya Cuenca [facility] FIBRINOGEN 2021-10-21 18:41:00 Abu Anaya Sharma [facility] ANTI-NUCLEAR ANTIBODY 2021-10-21 18:41:00 Sunday Anaya Sharma [facility] FL TIME OR 2021-10-21 18:18:06 AbAnaya Dover [facility] (NON-REPORTABLE) [facility] FL TIME OR 2021-10-21 18:18:06 Abu [facility] (NON-REPORTABLE) [facility] FLEXIBLE BRONCHOSCOPY 2021-10-21 16:21:00 Abu Anaya Sharma [facility] FLEXIBLE BRONCHOSCOPY 2021-10-21 16:21:00 AbAnaya Dover [facility] XR CHEST 1 VW 2021-10-20 11:13:00 [facility] XR CHEST 1 VW 2021-10-20 11:13:00 Abu Sher [facility] CBC WITH DIFF 2021-10-20 10:30:00 Maggie Morgan [facility] CBC WITH DIFF 2021-10-20 10:30:00 Maggie Morgan [facility] URIC ACID 2021-10-20 10:29:00 Abu Malilewis [facility] BASIC METABOLIC PANEL 2021-10-20 10:29:00 Maggie Morgan [facility] (NA, K, CL, CO2, GLUCOSE, [facility]ica [facility] Branch BUN, CREATININE, CA) URIC ACID 2021-10-20 10:29:00 Abu SherAnaya [facility] BASIC METABOLIC PANEL 2021-10-20 10:29:00 Maggie Morgan [facility] (NA, K, CL, CO2, GLUCOSE, Medica [facility] Branch BUN, CREATININE, CA) XR CHEST 1 VW 2021-10-19 18:11:14 [facility] XR CHEST 1 VW 2021-10-19 18:11:14 Abu Malilewis [facility] CBC WITH DIFF 2021-10-19 09:05:00 Maggie Morgan [facility] CBC WITH DIFF 2021-10-19 09:05:00 Maggie Morgan [facility] MAGNESIUM 2021-10-19 09:04:00 [facility] BASIC METABOLIC PANEL 2021-10-19 09:04:00 Maggie Morgan [facility] (NA, K, CL, CO2, GLUCOSE, Medica [facility] Branch BUN, CREATININE, CA) MAGNESIUM 2021-10-19 09:04:00 Ezzo, [facility] BASIC METABOLIC PANEL 2021-10-19 09:04:00 Maggie Morgan [facility] (NA, K, CL, CO2, GLUCOSE, Medica [facility] Branch BUN, CREATININE, CA) POCT GLUCOSE (AUTOMATED) 2021-10-19 02:24:00 Blanca Talavera [facility] POCT GLUCOSE (AUTOMATED) 2021-10-19 02:24:00 Blanca Talavera [facility] COVID-19 (MOLECULAR 2021-10-18 19:48:00 Vale Jones [facility] NUCLEIC ACID AMPLIFICATION) LAB ONLY COVID 2021-10-18 19:48:00 Vale Jones [facility] COVID-19 (MOLECULAR 2021-10-18 19:48:00 Vale Jones [facility] NUCLEIC ACID AMPLIFICATION) LAB ONLY COVID 2021-10-18 19:48:00 Vale Jones [facility] INTERPRETATION [facility] ANGIOTENSIN CONVERTING 2021-10-18 19:45:00 [facility] 2021-10-18 19:45:00 Amadou Putnam [facility] ANCA SCREEN 2021-10-18 19:45:[address] [facility] ANGIOTENSIN CONVERTING 2021-10-18 19:45:00 Vale [facility] RHEUMATOID FACTOR 2021-10-18 19:45:00 [facility] ANCA SCREEN 2021-10-18 19:45:00 Vale Jones [facility] XR CHEST 1 VW 2021-10-18 12:37:00 Abu Sher [facility] XR CHEST 1 VW 2021-10-18 12:37:00 Abu Mali [facility] PHOSPHORUS 2021-10-18 09:30:00 Ezzo, [facility] MAGNESIUM 2021-10-18 09:30:00 Ezzo, [facility] BASIC METABOLIC PANEL 2021-10-18 09:30:00 Rose [facility] (NA, K, CL, CO2, GLUCOSE, Medica l Branch BUN, CREATININE, CA) CBC WITH DIFF 2021-10-18 09:30:00 Rose [facility] GLYCOSYLATED HEMOGLOBIN 2021-10-18 09:30:00 Maggie Morgan [facility] ([facility]) Medical Branch PHOSPHORUS 2021-10-18 09:30:00 Ezzo, [facility] MAGNESIUM 2021-10-18 09:30:00 Ezzo, [facility] BASIC METABOLIC PANEL 2021-10-18 09:30:00 Rose [facility] (NA, K, CL, CO2, GLUCOSE, Medica l Branch BUN, CREATININE, CA) CBC WITH DIFF 2021-10-18 09:30:00 Ezkevin, [facility] GLYCOSYLATED HEMOGLOBIN 2021-10-18 09:30:00 Maggie Morgan [facility] (A1C) [facility] BASIC METABOLIC PANEL 2021-10-18 00:43:00 Abu Atherlewis, Casean [facility] (NA, K, CL, CO2, GLUCOSE, Medica l Branch BUN, CREATININE, CA) BASIC METABOLIC PANEL 2021-10-18 00:43:00 Abu Atherah, Emran [facility] (NA, K, CL, CO2, GLUCOSE, Medica l Branch BUN, CREATININE, CA) N-TERMINAL PRO-BNP 2021-10-17 21:27:00 Josie [facility] N-TERMINAL PRO-BNP 2021-10-17 21:27:00 Josie [facility] TRANSTHORACIC ECHO (TTE) 2021-10-17 17:05:00 Bk [facility] TRANSTHORACIC ECHO (TTE) 2021-10-17 17:05:00 [facility] 1 VW 2021-10-17 17:00:50 Josie, [facility] XR CHEST 1 2021-10-17 17:00:50 Josie, [facility] XR CHEST 1 2021-10-17 14:17:12 Josie, [facility] XR CHEST 1 2021-10-17 14:17:12 Josie [facility] ABG+COOX+NA+K+GLU+CA2+ 2021-10-17 13:25:00 Faraz Parada [facility] ABG+COOX+NA+K+GLU+CA2+ 2021-10-17 13:25:00 Faraz Parada [facility] PHOSPHORUS 2021-10-17 10:28:00 Josie [facility] MAGNESIUM 2021-10-17 10:28:00 Josie [facility] BASIC METABOLIC PANEL 2021-10-17 10:28:00 Josie [facility] (NA, K, CL, CO2, GLUCOSE, Medica l Branch BUN, CREATININE, CA) SEDIMENTATION RATE 2021-10-17 10:28:00 Faraz Parada [facility] CBC WITH DIFF 2021-10-17 10:28:00 Josie [facility] ANTI-NUCLEAR ANTIBODY 2021-10-17 10:28:00 Faraz Parada [facility] ANTI-NUCLEAR ANTIBODY 2021-10-17 10:28:00 Faraz Parada [facility] ANTI-DOUBLE STRANDED DNA 2021-10-17 10:28:00 Amadou Putnam [facility] HIV 1/2 AG-AB WITH REFLEX 2021-10-17 10:28:00 Anaya Kline [facility] ANTI-NUCLEAR 2021-10-17 10:28:00 Jennifer [facility] ANTIBODY-PATHOLOGIST [facility] INTERPRETATION PHOSPHORUS 2021-10-17 10:28:00 Josie [facility] MAGNESIUM 2021-10-17 10:28:00 Josie [facility] BASIC METABOLIC PANEL 2021-10-17 10:28:00 Josie [facility] (NA, K, CL, CO2, GLUCOSE, Medica l Branch BUN, CREATININE, CA) SEDIMENTATION RATE 2021-10-17 10:28:00 Jennifer [facility] CBC WITH DIFF 2021-10-17 10:28:00 Josie [facility] ANTI-NUCLEAR ANTIBODY 2021-10-17 10:28:00 Jennifer [facility] ANTI-NUCLEAR ANTIBODY 2021-10-17 10:28:00 Jennifer [facility]ITER [facility] ANTI-DOUBLE STRANDED DNA 2021-10-17 10:28:00 Amadou Putnam [facility] HIV 1/2 AG-AB WITH REFLEX 2021-10-17 10:28:00 Anaya Kline [facility] ANTI-NUCLEAR 2021-10-17 10:28:00 Jennifer [facility] ANTIBODY-PATHOLOGIST [facility] INTERPRETATION BLOOD CULTURE SCREEN 2021-10-16 17:40:00 Amadou Putnam Un [facility] BLOOD CULTURE SCREEN 2021-10-16 17:40:00 Amadou Putnam Un [facility] XR CHEST 1 VW 2021-10-16 16:56:36 [facility] VW 2021-10-16 16:56[facility] 2021-10-16 14:46:00 Amadou Putnam [facility] RESPIRATORY PANEL BY PCR 2021-10-16 14:46:00 Amadou Putnam [facility] PHOSPHORUS 2021-10-16 10:47:00 Ahmed, [facility] MAGNESIUM 2021-10-16 10:47:00 Ahmed, [facility] BASIC METABOLIC PANEL 2021-10-16 10:47:00 Ahleighann, Samir [facility] (NA, K, CL, CO2, GLUCOSE, Medica l Branch BUN, CREATININE, CA) CBC WITH DIFF 2021-10-16 10:47:00 Ahmed [facility] AC PANEL 20 + LACTIC ACID 2021-10-16 10:47:00 AhSamir [facility] PHOSPHORUS 2021-10-16 10:47:00 Ahmed [facility] MAGNESIUM 2021-10-16 10:47:00 Ahmed, [facility] BASIC METABOLIC PANEL 2021-10-16 10:47:00 AhmedSamir Univ sity [facility] (NA, K, CL, CO2, GLUCOSE, Medica l Branch BUN, CREATININE, CA) CBC WITH DIFF 2021-10-16 10:47:00 Ahmed, [facility] AC PANEL 20 + LACTIC ACID 2021-10-16 10:47:00 Samir Galindo [facility] C-REACTIVE PROTEIN 2021-10-15 22:38:00 Jennifer [facility] TROPONIN I 2021-10-15 22:38:00 [facility] BASIC MET[facility]OLIC PANEL 2021-10-15 22:38:00 AhSamir [facility] [facility] (NA, K, CL, CO2, GLUCOSE, Medica l Branch BUN, CREATININE, CA) C-REACTIVE PROTEIN 2021-10-15 22:38:00 Jennifer [facility] TROPONIN I 2021-10-15 22:38:00 Ilan [facility] BASIC METABOLIC PANEL 2021-10-15 22:38:00 Ahmed, [facility] (NA, K, CL, CO2, GLUCOSE, Medica l Branch BUN, CREATININE, CA) PNEUMOCOCCAL ANTIGEN 2021-10-15 21:49:00 Josie [facility] PNEUMOCOCCAL ANTIGEN 2021-10-15 21:49:00 Josie [facility] LEGIONELLA URINARY 2021-10-15 21:48:00 Josie [facility] ANTIGEN TST Medical Dawn LEGIONELLA URINARY 2021-10-15 21:48:00 Josie [facility] ANTIGEN [facility] CT ANGIOGRAM CHEST 2021-10-15 19:22:00 Sunday [facility] CT ANGIOGRAM CHEST 2021-10-15 19:22:00 Sunday Samson [facility] TROPONIN I 2021-10-15 17:29:00 Ilan [facility] RAPID INFLUENZA A/B 2021-10-15 17:29:00 [facility] N-TERMINAL PRO-BNP 2021-10-15 17:29:00 Vito Bourgeoisdaysi [facility] PROCALCITONIN 2021-10-15 17:29:00 Nicol Bourgeois [facility] COVID-19 (MOLECULAR 2021-10-15 17:29:00 Nicol [facility] NUCLEIC ACID AMPLIFICATION) LAB ONLY COVID 2021-10-15 17:29:00 Nicol Bourgeois [facility] INTERPRETATION [facility] TROPONIN I 2021-10-15 17:29:00 Ilan [facility] RAPID INFLUENZA A/B 2021-10-15 17:29:00 Nicol [facility]geois [facility] N-TERMINAL PRO-BNP 2021-10-15 17:29:00 Vito Bourgeoisdaysi [facility] PROCALCITONIN 2021-10-15 17:29:00 Vito Bourgeoisdaysi [facility] COVID-19 (MOLECULAR 2021-10-15 17:29:00 Nicol Bourgeois [facility] TESTING Medical Branch NUCLEIC ACID AMPLIFICATION) LAB ONLY COVID 2021-10-15 17:29:00 Nicol Bourgeois [facility] INTERPRETATION Medical Branch COVID-19 (ID NOW RAPID 2021-10-15 13:03:00 Samir Galindo [facility] TESTING) Medical Branch LAB ONLY COVID 2021-10-15 13:03:00 Samir Galindo [facility] INTERPRETATION Medical Branch COVID-19 (ID NOW RAPID 2021-10-15 13:03:00 Samir Galindo [facility] TESTING) Medical Branch LAB ONLY COVID 2021-10-15 13:03:00 Josie Samir [facility] XR CHEST 1 VW 2021-10-15 09:46:38 [facility] 1 2021-10-15 09:46:38 Ilan [facility] MAGNESIUM 2021-10-15 08:16:00 Samir Galindo [facility] BASIC METABOLIC PANEL 2021-10-15 08:16:00 Samir Galindo [facility] (NA, K, CL, CO2, GLUCOSE, Medica l Branch BUN, CREATININE, CA) PROCALCITONIN 2021-10-15 08:16:00 [facility] MAGNESIUM 2021-10-15 08:16:00 Samir Galindo [facility] BASIC METABOLIC PANEL 2021-10-15 08:16:00 Samir Galindo [facility] (NA, K, CL, CO2, GLUCOSE, Medica l Branch BUN, CREATININE, CA) PROCALCITONIN 2021-10-15 08:16:00 [facility] ABG+COOX+NA+K+GLU+CA2+ 2021-10-15 07:24:00 Samir Galindo [facility] ABG+COOX+NA+K+GLU+CA2+ 2021-10-15 07:24:00 Samir Galindo [facility] TROPONIN I 2021-10-15 07:10:00 Ilan [facility] CBC WITH DIFF 2021-10-15 07:10:00 Samir Galindo [facility] TROPONIN I 2021-10-15 07:10:00 Ilan [facility] CBC WITH DIFF 2021-10-15 07:10:00 Samir Galindo [facility] MRSA / MSSA SCREEN BY 2021-10-15 07:09:00 Samir Galindo [facility] PCR, [facility] MRSA / MSSA SCREEN BY 2021-10-15 07:09:00 Josie [facility], [facility] AUTHORIZATION FOR RELEASE 2021-06-09 05:01:00 Doctor Unassigned, [facility] [place] [facility] Branch Plan of Care Planned Activity Planned Date Details Comments Source Goal Plan of Care Note [code = 75310-6] Goal Plan of Care Note [code = 62551-3] Goal Plan of Care Note [code = 16979-2] Goal Plan of Care Note [code = 36845-1] Goal Plan of Care Note [code = 66227-8] Goal Plan of Care Note [code = 18316-1] Goal Plan of Care Note [code = 55598-8] Goal Plan of Care Note [code = 54123-0] Goal Plan of Care Note [code = 46067-8] Goal Plan of Care Note [code = 74261-0] Goal Plan of Care Note [code = 01216-7] Goal Plan of Care Note [code = 19674-7] Goal Plan of Care Note [code = 64949-2] Goal Plan of Care Note [code = 77342-6] Goal Plan of Care Note [code = 36880-7] Goal Plan of Care Note [code = 62694-9] Goal Plan of Care Note [code = 22183-0] Goal Plan of Care Note [code = 26159-9] Goal Plan of Care Note [code = 07939-3] Goal Plan of Care Note [code = 91197-5] Goal Plan of Care Note [code = 66843-4] Goal Plan of Care Note [code = 44141-5] Goal Plan of Care Note [code = 02741-4] Encounters Start End Encounter Admission Attending Care Care Encounter Source Date/Time Date/Time Type Type Clinicians Facility Department ID 2022-07-20 2022-07-20 Outpatient Jonh [facility]ER[facility] [id number] [place] 13:25:00 16:55:00 [facility]IND[facility] 2022-06-24 2022-06-26 Inpatient X ABU [facility] [id number] Univers 19:56:00 05:00:00 ATHERAH, ity o f ANAYA [facility] 2022-06-24 2022-06-26 [facility] Jaden Siddiqui [facility] 1.2.840.1 [id number] Univers 19:56:00 05:00:00 Encounter Abu Anaya Sharma [facility] 350.1.13. 10 [place] [id number] [place] [address] Branch ([facility]) 2022-06-23 2022-06-23 Emergency E KAMERON, [facility] ECC [id number] [facility] 18:38:00 23:25:00 LORAINE Medica [facility] 2022-06-21 2022-06-22 [facility] TE[facility] [id number] [facility] 23:43:00 10:50:00 CHRISTIAN [facility] 2022-06-15 2022-06-15 [facility] [id number] [place] 11:12:00 15:38:00 LINDSEY [facility] 2022-06-08 2022-06-08 Orders Doctor LOIDA 1.2.840.114 [id number] Univers 00:00:00 00:00:00 Only Unassigned, BETH 350.1.13.10 ity of [place] [facility] 4.2.7.2.686 José Miguel as [id number] [place] [address] Branch 2022-05-31 2022-05-31 Emergency X VASUT, [facility] ERT [id number] Univers 20:15:00 22:49:00 GABRIEL ity of [facility] 2022-05-31 2022-05-31 Emergency Vasut, [facility] 1.2.001.875 [id number] Univers 20:15:00 22:49:00 Gabriel MARTINES 350.1.13.10 i ty of [place] 4.2.7.2.686 [facility] [id number] [facility] 084 Branch 2022-05-11 2022-05-11 Outpatient Jonh [facility] [id number] [place] 11:42:00 23:59:00 [facility] 2022-04-17 2022-04-17 Outpatient R WILMAR MADISON [facility] [id number] Univers 20:00:00 20:00:00 WILMAR MADISON [facility] 2022-04-15 2022-04-15 Outpatient R [facility] [id number] Univers 08:00:00 08:00:00 [facility]-04-[facility] 2022-04-15 Outpatient [id number] ad [id number] 00:00:00 00:00:00 Visit [id number] 7822-08-04 2022-04-06 Outpatient Jonh [facility] [id number] [place] 12:15:00 16:00:00 [facility] 2022-03-15 2022-03-15 Molding Room Supervisor 1, [facility] Sleep Lab Bed [facility] 1. 2.840.114 [id number] Univers 20:00:00 22:30:00 Visit Wilmar [place] 350.1.13. 10 ity [facility] 4.2.7.2.686 [facility] [id number] [facility] 193 Branch 2022-03-15 2022-03-15 Outpatient R WILMAR MADISON [facility] [id number] Univers 20:00:00 20:00:00 WILMAR MADISON norris [facility] 2022-03-14 2022-03-14 Laboratory Only, [facility] Test [facility] 1.2.840. 114 [id number] Univers 15:30:00 15:45:00 Only RafyOmega brandveritolilo MARTINES 350.1.13. 10 ity [facility] 4.2.7.2.686 [facility] [id number] [facility] 353 Branch 2022-03-14 2022-03-14 Outpatient R WILMAR MADISON [facility] [id number] Univers 15:30:00 15:30:00 ATAPETTY BRANDL ity of [facility] 2022-03-14 2022-03-14 Orders Doctor LOIDA 1.2.840.114 [id number] Univers 00:00:00 00:00:00 Only Unassigned, BETH 350.1.13.10 ity of [facility] 4.2.7.2.[address] [facility] [id number] [facility] 009 Branch 2022-02-25 2022-02-26 Outpatient X ABU [facility] ERIN [id number] Univers 18:18:00 12:30:00 chastity SHARMA [facility] 2022-02-25 2022-02-26 Emergency Sobeida Samson [facility] 1.2.8 40.114 [id number] Univers 18:18:00 12:30:00 u [facility] 350.1.13.10 ity [facility] 4.2.7.2.686 [facility] [id number] [facility] 110 Branch (CLC) 2022-02-22 2022-02-23 Emergency X SETH, [facility] ERT [id number] Univers 21:42:00 01:19:00 BRO ity [facility] 2022-02-22 2022-02-23 Emergency Ann, [facility] 1.2.840.114 [id number] Univers 21:42:00 01:19:00 Bro MARTINES 350.1.13.10 i ty of [place] 4.2.7.2.686 [facility] [id number] [facility] 084 Branch 2022-01-29 2022-01-29 Emergency X JADEN SIDDIQUI [facility] ERT [id number] Univers 14:38:00 16:55:00 JADEN SIDDIQUI ity [facility] 2022-01-29 2022-01-29 Emergency [facility] 1.2.128.259 [id number] Univers 14:38:00 16:55:00 [facility] 350.1.13.10 it y of [place] [phone] [place] [address] Branch ([facility]) 2022-01-29 2022-01-29 Emergency X MIGUEL [facility] ERT [id number] Univers 07:51:00 10:37:00 MAI [facility] 2022-01-29 2022-01-29 Emergency Miguel [facility] 1.2.840.114 [id number] Univers 07:51:00 10:37:00 Mai MARTINES 350.1.13.10 ity of [facility] 4.2.7.2.[place] [id number] [place] [address]16[address] Dawn 2022-01-05 2022-01-05 Out[facility] [id number] [address] [place] [address] 10:46:00 14:42:[address] [facility] 2022-01-02 2022-01-03 Emergency [facility] ERT [id number] Univers 21:43:00 00:14:00 JACKLYN [facility] 2022-01-02 2022-01-03 Emergency [facility] [id number] Univers 21:43:00 00:14:00 Jacklyn MARTINES 350.1.13.10 ity of [place] [id number] [place] [address] Branch 2021-12-08 2021-12-08 Transition SABINA Heart 1.2.840.114 [id number] Univers 00:00:00 00:00:00 of Care Marjan DOHERTY 350.1.13.10 i ty of [place] [id number] [facility] 403 Branch 2021-12-05 2021-12-07 Inpatient X MARY [facility] ERIN [id number] Univers 17:33:00 12:01:00 ADNAN ity of [facility] 2021-12-05 2021-12-07 Hospital Christos Tovar [facility] 1.2.840.1 [id number] Univers 17:33:00 12:01:00 Encounter Jacklyn Guillen 350.1.13.1 0 ity of Gely HernandezNOMAN 4.2.7.2.686 [facility] [id number] [facility] 080 Branch 2021-12-03 2021-12-05 Outpatient X MICHEL [facility] ERIN [id number] Univers 12:50:00 05:42:00 WILFRID ity of [facility] 2021-12-03 2021-12-05 [facility] Gonsalo Maury Jonh [facility] 1.2.84 0.114 [id number] Univers 12:50:00 05:42:00 Encounter Nancy Pearsony HEALTH 350.1.13.10 it[place] [id number] [facility] 113 Branch ([facility]) 2021-11-23 2021-11-23 Orders Doctor MARISCAL 1.2.840.114 [id number] Univers 00:00:00 00:00:00 Only Unassigned, BETH 350.1.13.10 ity of [place] [facility] 4.2.7.2.686 José Miguel [phone] [facility] 009 Branch 2021-11-09 2021-11-11 Outpatient X MICHEL [facility] ERIN [id number] Univers 18:47:00 17:31:00 WILFRID ity of [facility] 2021-11-09 2021-11-11 Emergency Sobeida Samson [facility] 1.2.8 40.114 [id number] Univers 18:47:00 17:31:00 Nikawinstonreyna Wilfrid HEALTH 350.1.13.10 it[place] of [place] [id number] [facility] 116 Branch (CLC) 2021-11-07 2021-11-07 Orders Doctor MARISCAL 1.2.840.114 [id number] Univers 00:00:00 00:00:00 Only Unassigned, BETH 350.1.13.10 ity of [place] [facility] 4.2.7.2.686 José Miguel as [id number] [facility] 009 Branch 2021-11-03 2021-11-03 Orders Doctor LOIDA 1.2.840.114 [id number] Univers 00:00:00 00:00:00 Only Unassigned, BETH 350.1.13.10 ity of [place] HOS[facility]ITAL 4.2.7.2.686 José Miguel as [id number] [facility] 009 Branch 2021-10-25 2021-10-25 Transition SABINA Waters 1.2.840.114 [id number] Univers 00:00:00 00:00:00 of Care Anyeri LEVYY 350.1.13.10 i ty of [place] [id number] [place] [address] Branch 2021-10-15 2021-10-24 [facility] [id number] Univers 00:23:00 17:53:00 FLASH itnorris of [facility] 2021-10-15 2021-10-24 Hospital Ilan Blnaca [facility] 1.2.840.114 [id number] Univers 00:23:00 17:53:00 Encounter Josie, Samir HEALTH 350.1.13.10 ity of [place] 4.2.7.2.686 [place] Flash Kimball [id number] [facility] 113 Dawn ([facility]) 2021-10-21 2021-10-21 Surgery [facility] 1.2.840.114 [id number] Univers 10:00:00 10:45:00 Atherah, HEALTH 350.1.13.10 i ty of [place] [id number] [facility] 020 Branch ([facility]) 2021-06-09 2021-06-09 Orders Doctor MARISCAL 1.2.840.114 [id number] Univers 00:00:00 00:00:00 Only Unassigned, BETH 350.1.13.10 ity of [place] [facility] 4.2.7.2.686 José Miguel as [id number] [address] 2012-11-25 2012-11-25 Outpatient GABRIEL SHAIKH [facility] [id number] Univers 00:00:00 16:37:20 GABRIEL SHAIKH 3 i ty [facility] 2012-04-08 2012-04-08 Outpatient [facility] [id number] Univers 00:00:00 16:51:12 1 ity [facility] 2011-04-13 2011-04-13 Outpatient [facility] [id number] Univers 00:00:00 10:43:11 1 ity [facility] 2010-09-15 2010-09-15 Outpatient [facility] [id number] Univers 00:00:00 11:23:44 [facility] 2010-03-11 2010-03-11 Outpatient [facility] [id number] Univers 00:00:00 16:25:54 5 [facility] 2009-09-13 2009-09-13 Outpatient [facility] [id number] Univers 00:00:00 16:22:48 1 [facility] 2009-08-31 2009-08-31 Outpatient [facility] [id number] Univers 00:00:00 09:36:31 1 [facility] Results Test Description Test Time Test Comments Results Result Comments Source URINE MONOCLONAL *WW* 2022-07-20 14:10:00 Test Item Value Reference Range Interpretation Comme nts PREG UR (test code = PGU) NEGATIVE NEGATIVE BLOOD [id number] 07:22:00 Test Item Value Reference Range Interpretation Comments Culture Observations POSITIVE BLOOD A (test code = COB1) CULTURE Culture Observations 1 OF 2 BOTTLES (test code = COB2) Isolate 1 (test code = Diphtheroids ISO1) Troponin [id number] 11:14:56 Test Item Value Reference Interpretation Comments Range TROPONIN I (test 0.035 ng/mL See_Comment H Hemolyzed code = [id number]) specimen [Automated message] The system which generated this result [...] biotin. Lab Interpretation Abnormal (test code = 37663-5) [facility] [id number] 10:18:00 Test Item Value Reference Range Interpretation Comments Culture Observations NO BETA HEMOLYTIC (test code = COB1) STREPTOCOCCUS ISOLATED Direct Exam (test code NEGATIVE FOR STREP A = DE3) ANTIGEN BLOOD [id number] 07:35:00 Test Item Value Reference Interpretation Comments Range Culture POSITIVE Observations (test BLOOD code = COB1) CULTURE Culture 1 OF 4 BOTTLES Observations (test code = COB2) Isolate 1 (test Coagulase negative POSSIB LE code = ISO1) staphylococcus CONTAMINANTIF SUSCEPTIBILITY NEEDED, PLEASE NOTIFY MICRO WI THIN [address] CHEST W/O [id number] 21:52:03 [facility] : 1970 Sex: FEXAMINATION:CT CH EST W/O CONTRASTCLINICAL INDICATION:Female, 51 years old with Acute infectious disease; DyspneaTECHNIQUE: Axial non-contrast contiguous images were obtained through the chest followed by coronal and sagittal multiplanar reformations.One or more of the following dose reduction techniques were used: Automated exposure control, adjustment of the mA and/or kV according to patient size, and/or iterative reconstruction. COMPARISON: NoneFINDINGS:Chest:Medical Devices: None.Lymph Nodes: There are no pathologically enlarged supraclavicular, mediastinal, or axillary lymph nodes.Lungs/Airways/Pleura: Trachea and main bronchi are patent. The right lower lobe infiltrate is identified consistent with pneumonia.No pneumothorax is identified. No pulmonary nodules or masses are identified. No pleural effusion ispresent. Heart/Vessels: Heart is normal in size. No coronary artery atherosclerosis is identified. No pericardial effusion is present. Aorta is normal in caliber and contour. No atherosclerosis is ident ified. Central pulmonary arteries are normal in size.Soft Tissues: Visualized thyroid gland is normal. The esophagus is normal. No soft tissue abnormality of the chest is demonstrated.Upper Abdomen:Abdomen: Visualized upper abdominal structures are within normal limits.Bones: No acute abnormality or suspicious bony lesion.IMPRESSION:1. Right lower lobe pneumonia.Electronically signed by: Fidencio Thurston MD 06/23/2022 9:52 PM CDT [id number] 2022-06-23 21:26:00 Test Item Value Reference Range Interpretation Comments PROCALCITONIN (test 0.13 ng/mL 0.00-0.24 code = PCT) PROCALCITONIN REF (test code = PCTH) PROCALCITONIN REFERENCE RANGE < 0.25 ng/mL suggests viral infection on day of admission 0.25-0.5 ng/mL young zone >0.5 ng/mL is highly suggestive of bacterial infection BRAIN NATRIURETIC [id number] 21:04:00 Test Item Value Reference Range Interpretation Comments BNP (test code = 24 pg/mL See_Comment [Automated message] The A74) system which ge nerated this result tra nsmitted reference range : <=100. The reference r nicholas was not used to int erpret this result as earnest l/abnormal. DIRECT INFLUENZA A AND B [id number] 21:00:00 Test Item Value Reference Range Interpretation Comments Direct Exam (test PRESUMPTIVE NEGATIVE FOR code = DE3) THE PRESENCE OF INFLUENZA ANTIGEN SARS-CoV (RAPID ANTIGEN)2022-06-23 20:49:00 Test Item Value Reference Range Interpretation Comments SARS-CoV (ANTIGEN) NEGATIVE NEGATIVE (test code = COVAG) COVID AG (test This test has been code = COVAGC) marketed under the FDA Emergency Use Authorization (EUA) to meet challenges of the COVID-19 pandemic. The validation standards normally enforced by the FDA and the [employer] (CAP) are more stringent than those required for this test. Therefore, the result should be interpreted with caution and close attention to other clinical and epidemiological data COMPREHENSIVE METABOLIC [id number] 20:46:00 Test Item Value Reference Range Interpretation Comments GLUCOSE (test code 112 mg/dL 75-100 H = 06D) SODIUM (test code 143 mmol/L 136-145 = 01A) POTASSIUM (test 4.3 mmol/L 3.6-5.1 code = 01B) CHLORIDE (test 109 mmol/L 98-107 H code = 04A) CO2 (test code = 26 mmol/L 20-31 02A) ANION GAP (test 12.3 mmol/L code = ANG) BUN (test code = 15 mg/dL 9-23 05D) CREATININE (test 0.9 mg/dL 0.6-1.0 code = 03E) GFR (test code = 74 See_Comment L [Automated GFR) mL/min/1.73m\\S\\2 message] Th e system which generated this result transmit britney reference range : >=90. The reference range was not used to interpret this result as normal/abnormal . GFR 86 See_Comment L [Automated MACEDONIAN (test mL/min/1.73m\\S\\2 message] The code = GFRAA) system which generated this result transmit britney reference range : >=90. The reference range was not used to interpret this result as normal/abnormal . EGFR (test code = eGFR BY EGFR) CKD-EPI CALCULATION IS NOT RECOMMENDED FOR PATIENTS UNDER 18 YEARS OF AGE. BUN/CREA (test 08-22 code = BCR) CALCIUM (test code 8.4 mg/dL 8.3-10.6 = 09D) BILI TOTAL (test 0.2 mg/dL 0.2-1.0 code = 11A) PROTEIN (test code 6.2 g/dL 5.7-8.2 = 07D) ALBUMIN (test code 4.3 g/dL 3.2-4.8 = 08D) GLOBULIN (test 1.9 g/dL 1.5-3.8 code = GLB) ALB/GLOB (test 2.3 1.0-2.6 code = AGRR) ALK PHOS (test 107 IU/L 46-116 code = 35A) AST (test code = 29 IU/L See_Comment [Automated 30A) message] The system which generated this result transmit britney reference range : <=33. The reference range was not used to interpret this result as normal/abnormal . ALT (test code = 68 IU/L 10-49 H 31A) [id number] 20:46:00 Test Item Value Reference Range Interpretation Comments MAGNESIUM (test code = 48A) 2.1 mg/dL 1.6-2.6 TROPONIN [id number] 20:46:00 Test Item Value Reference Range Interpretation Comments TROPONIN I (test code = A84) 8.36 pg/mL 0.00-45.20 CBC WITH [id number] 20:44:00 Test Item Value Reference Range Interpretation Comments WBC (test code = WBC) 8.9 10\\S\\3/uL 4.5-11.0 RBC (test code = RBC) 4.26 10\\S\\6/uL 4.20-5.60 HGB (test code = HBG) 10.8 g/dL 12.0-15.5 L HCT (test code = HCT) 35.1 % 35.0-44.0 MCV (test code = MCV) 82.4 fL 81.0-99.0 MCH (test code = MCH) 25.4 pg 27.0-31.0 L MCHC (test code = MCHC) 30.8 g/dL 32.0-36.0 L RDW (test code = RDW) 21.2 % 11.5-14.5 H PLT (test code = PLT) 249 10\\S\\3/uL 130-400 MPV (test code = MPV) 10.4 fL 9.4-12.4 NEUTROP # (test code = NE#) 6.0 10\\S\\3/uL 1.6-8.0 LYMPH # (test code = LY#) 1.6 10\\S\\3/uL 1.1-3.5 MONOCYTE # (test code = 0.7 10\\S\\3/uL 0.0-1.1 MO#) EOSINOPH # (test code = 0.5 10\\S\\3/uL 0.0-0.7 EO#) BASOPHIL # (test code = 0.1 10\\S\\3/uL 0.0-0.3 BA#) IG # (test code = IG#) 0.07 10\\S\\3/uL 0.00-0.06 H NRBC # (test code = NRBC#) 0.00 10\\S\\3/uL 0.00-0.01 NEUTROPH % (test code = 67.0 % 35.0-73.0 NE%) LYMPH % (test code = LY%) 17.9 % 20.0-55.0 L MONO % (test code = MO%) 7.3 % 2.5-10.0 EOSINOPH % (test code = 6.1 % 0.0-5.0 H EO%) BASOPHIL % (test code = 0.9 % 0.0-2.0 BA%) IG % (test code = IG%) 0.8 % 0.0-0.8 NRBC% (test code = NRBC%) 0.0 % 0.0-0.2 PLT EST (test code = ADEQUATE ADEQUATE PLTEST) PLT MORPH (test code = NORMAL (1.5-3 um) NORMAL PLTMOR) ANISO (test code = ANISO) 2+ NONE A HYPOCHROM (test code = 1+ NONE A HYPOC) MICROCYTIC (test code = 1+ NONE A MICRO) PRO TIME AND [id number] 20:43:00 Test Item Value Reference Range Interpretation Comments PT (test code = 10.5 s 9.8-13.6 TT) INR (test code = 0.9 INR) INRH (test code = SUGGESTED THERAPEUTIC INRH) RANGE FOR INR: 2.5 - 3.5 For Patients with Prosthetic Valves or Patients with recurrent Thromboembolic Events 2.0 - 3.0 For Most Other Applications PTT (test code = 26.0 s 20.2-38.0 PTT) PTTH (test code = To monitor the PTTH) effectiveness of heparin, we offer the Anti-Xa (Heparin Assay). It can be used for either unfractionated or LMW Heparin. Order Code is ANTI-XA [id number] 20:43:00 Test Item Value Reference Range Interpretation Comments D-DIMER (test code = 286 ng/mL D-DU 0-234 H DDI) D-DIMER COMMENT (test *Level to rule out code = DDCOM) DVT or PE: <235 ng/mL D-DU* SERUM [id number] 20:40:00 Test Item Value Reference Range Interpretation Comments PREG SRM (test code = PGS) NEGATIVE NEGATIVE LACTIC [id number] 20:17:00 Test Item Value Reference Range Interpretation Comments LACTIC ACD (test code = LA) 0.9 mmol/L 0.4-2.0 XR CHEST 1 VIEW [id number] 20:05:47 [facility] 1970 Sex: FLocation code: H5 Chest 1 viewIndication: Dyspnea.Comparison: 06/21/2022Findings:The heart and mediastinum are not remarkable.Costophrenic angles are clear.Elevation of the right hemidiaphragm and small right basilar atelectasis.ACDF lower cervical spineImpression:1. No change. Elevation the right hemidiaphragm and small right basilar atelectasisElectronically signed by: Bucky Keith MD 06/23/2022 8:05 PM CDT [id number] *WW*2022-06-22 05:27:00 Test Item Value Reference Range Interpretation Comments D-DIMER (test code = 352 ng/mL D-DU 0-234 H DDI) D-DIMER COMMENT (test *Level to rule out code = DDCOM) DVT or PE: <235 ng/mL D-DU* LACTIC ACID WW2022-06-22 05:26:00 Test Item Value Reference Range Interpretation Comments LACTIC ACD (test code = LA) 1.5 mmol/L 0.4-2.0 PRO TIME AND PTT *WW*2022-06-22 00:46:00 Test Item Value Reference Range Interpretation Comments PT (test code = 10.7 s 9.8-13.6 TT) INR (test code = 0.9 INR) INRH (test code = SUGGESTED THERAPEUTIC INRH) RANGE FOR INR: 2.5 - 3.5 For Patients with Prosthetic Valves or Patients with recurrent Thromboembolic Events 2.0 - 3.0 For Most Other Applications PTT (test code = 23.3 s 20.2-38.0 PTT) PTTH (test code = To monitor the PTTH) effectiveness of heparin, we offer the Anti-Xa (Heparin Assay). It can be used for either unfractionated or LMW Heparin. Order Code is ANTI-XA LACTIC ACID WW2022-06-21 23:44:00 Test Item Value Reference Range Interpretation Comments LACTIC ACD (test code = LA) 2.7 mmol/L 0.4-2.[address] CHEST W/ CONTRAST *WW*2022-06-21 22:47:01 [facility] 1970 Sex: FEXAMINATION:CT CH EST W/ CONTRAST *WW*CLINICAL INDICATION:Female, 51 years old with DyspneaTECHNIQUE: Axial post-contrast contiguous images were obtained through the chest followed by coronal and sagittal multiplanar reformations.One or more of the following dose reduction techniques were used: Automated exposure contro l, adjustment of the mA and/or kV according to patient size, and/or iterative reconstruction. COMPARISON: NoneFINDINGS:Chest:Medical Devices: None.Lymph Nodes: There are no pathologically enlarged supraclavicular, mediastinal, or axillary lymph nodes.Lungs/Airways/Pleura: Trachea and main bronchi are patent. There is an infiltrate identified in the right lower lobe suspicious for pneumonia. No pneumothorax is identified. No pulmonary nodules or masses are identified. No pleural effusion is present. Heart/Vessels: Heart is normal in size. No coronary artery atherosclerosis is identified. No pericardial effusion is present. Aorta is normal in caliber and contour. No atherosclerosis is identified. Central pulmonary arteries are normal in size.Soft Tissues: Visualized thyroid gland is normal. The esophagus is normal. No soft tissue abnormality of the chest is demonstrated.Upper Abdomen:Abdomen: Visualized upper abdominal structures are within normal limits.Bones: No acute abnormality or suspicious bony lesion.IMPRESSION:1. Right lower lobe pneumonia.Electronically signed by: Fidencio Thurston MD 06/21/2022 10:47 PM CDT MB FRACTION *WW*2022-06-21 22:00:00 Test Item Value Reference Range Interpretation Comments CKMB (test code = 3.4 ng/mL See_Comment [Automate d message] The A49) system which [employer] nerated this result tra nsmitted reference range : <=3.6. The reference r nicholas was not used to int erpret this result as normal/abnormal . MAGNESIUM WW2022-06-21 21:52:00 Test Item Value Reference Range Interpretation Comments MAGNESIUM (test code = 48A) 2.3 mg/dL 1.6-2.6 CPK *WW*2022-06-21 21:50:00 Test Item Value Reference Range Interpretation Comments CPK (test code = 32A) 176 IU/L 34-145 H AMYLASE AND LIPASE *WW*2022-06-21 21:50:00 Test Item Value Reference Range Interpretation Comments AMYLASE (test code = 10A) 54 U/L 28-100 LIPASE (test code = 60A) 39 IU/L 12-53 COMPREHENSIVE METABOLIC ENRIQUE *WW*2022-06-21 21:50:00 Test Item Value Reference Range Interpretation Comments GLUCOSE (test code 108 mg/dL 75-100 H = 06D) SODIUM (test code 143 mmol/L 136-145 = 01A) POTASSIUM (test 4.7 mmol/L 3.6-5.1 code = 01B) CHLORIDE (test 109 mmol/L 98-107 H code = 04A) CO2 (test code = 24 mmol/L 20-31 02A) ANION GAP (test 14.7 mmol/L code = ANG) BUN (test code = 17 mg/dL 9-23 05D) CREATININE (test 1.0 mg/dL 0.6-1.0 code = 03E) GFR (test code = 65 See_Comment L [Automated GFR) mL/min/1.73m\\S\\2 message] Th e system which generated this result transmit britney reference range : >=90. The reference range was not used to interpret this result as normal/abnormal . GFR 76 See_Comment L [Automated MACEDONIAN (test mL/min/1.73m\\S\\2 message] The code = GFRAA) system which generated this result transmit britney reference range : >=90. The reference range was not used to interpret this result as normal/abnormal . EGFR (test code = eGFR BY EGFR) CKD-EPI CALCULATION IS NOT RECOMMENDED FOR PATIENTS UNDER 18 YEARS OF AGE. BUN/CREA (test 17 12-20 code = BCR) CALCIUM (test code 9.2 mg/dL 8.3-10.6 = 09D) BILI TOTAL (test 0.3 mg/dL 0.2-1.0 code = 11A) PROTEIN (test code 7.8 g/dL 5.7-8.2 = 07D) ALBUMIN (test code 4.8 g/dL 3.2-4.8 = 08D) GLOBULIN (test 3.0 g/dL 1.5-3.8 code = GLB) ALB/GLOB (test 1.6 1.0-2.6 code = AGRR) ALK PHOS (test 105 IU/L 46-116 code = 35A) AST (test code = 42 IU/L See_Comment H [Automated 30A) message] The system which generated this result transmit britney reference range : <=33. The reference range was not used to interpret this result as normal/abnormal . ALT (test code = 88 IU/L 10-49 H 31A) URINALYSIS WITH MICRO *WW*2022-06-21 20:59:00 Test Item Value Reference Range Interpretation Comments COLOR (test code = COLU) YELLOW YELLOW CLARITY (test code = CLA) SLT HAZY CLEAR A GLUCOSE UR (test code = UA NEGATIVE NEGATIVE GLUCOSE) BILI UR (test code = BILE) NEGATIVE NEGATIVE KETONES UR (test code = MELLY) NEGATIVE NEGATIVE SP GRAVITY (test code = SPGR) 1.020 1.005-1.030 PH UR (test code = PH) 6.5 4.5-8.0 PROTEIN UR (test code = PU) TRACE NEGATIVE A UROBIL UR (test code = UROQ) 0.2 EU/dL 0.2-1.0 NITRITE UR (test code = NEGATIVE NEGATIVE NITRITE) BLOOD UR (test code = UA BLOOD) NEGATIVE NEGATIVE LEUK ES UR (test code = LEUK) 2+ NEGATIVE A WBC UR (test code = UWBC) 6 /HPF 0-5 H RBC UR (test code = URBC) 2 /HPF 0-2 EPITH UR (test code = UEPC) MODERATE /LPF FEW A BACTERIA UR (test code = UBACT) MODERATE /HPF NONE A CAST UR (test code = CAST) /LPF NONE CRYSTAL UR (test code = CRYU) / LPF NONE MUCUS UR (test code = MUC) / HPF NONE AMORPH UR (test code = YOLANDA) / HPF NONE TRICH UR (test code = UTRICH) /HPF NONE YEAST UR (test code = UY) /HPF NONE SPERM UR (test code = USPERM) /HPF NONE CBC WITH MORPHOLOGY *WW*2022-06-21 20:56:00 Test Item Value Reference Range Interpretation Comments WBC (test code = WBC) 12.2 10\\S\\3/uL 4.5-11.0 H RBC (test code = RBC) 5.05 10\\S\\6/uL 4.20-5.60 HGB (test code = HBG) 12.7 g/dL 12.0-15.5 HCT (test code = HCT) 40.8 % 35.0-44.0 MCV (test code = MCV) 80.8 fL 81.0-99.0 L MCH (test code = MCH) 25.1 pg 27.0-31.0 L MCHC (test code = MCHC) 31.1 g/dL 32.0-36.0 L RDW (test code = RDW) 21.6 % 11.5-14.5 H PLT (test code = PLT) 336 10\\S\\3/uL 130-400 MPV (test code = MPV) 11.0 fL 9.4-12.4 NEUTROP # (test code = NE#) 8.9 10\\S\\3/uL 1.6-8.0 H LYMPH # (test code = LY#) 1.8 10\\S\\3/uL 1.1-3.5 MONOCYTE # (test code = 0.8 10\\S\\3/uL 0.0-1.1 MO#) EOSINOPH # (test code = 0.5 10\\S\\3/uL 0.0-0.7 EO#) BASOPHIL # (test code = 0.1 10\\S\\3/uL 0.0-0.3 BA#) IG # (test code = IG#) 0.13 10\\S\\3/uL 0.00-0.06 H NRBC # (test code = NRBC#) 0.07 10\\S\\3/uL 0.00-0.01 H NEUTROPH % (test code = 73.1 % 35.0-73.0 H NE%) LYMPH % (test code = LY%) 14.6 % 20.0-55.0 L MONO % (test code = MO%) 6.2 % 2.5-10.0 EOSINOPH % (test code = 4.3 % 0.0-5.0 EO%) BASOPHIL % (test code = 0.7 % 0.0-2.0 BA%) IG % (test code = IG%) 1.1 % 0.0-0.8 H NRBC% (test code = NRBC%) 0.6 % 0.0-0.2 H PLT EST (test code = ADEQUATE ADEQUATE PLTEST) PLT MORPH (test code = NORMAL (1.5-3 um) NORMAL PLTMOR) ANISO (test code = ANISO) 2+ NONE A MICROCYTIC (test code = 1+ NONE A MICRO) POLYCHROM (test code = 1+ NONE A POLY) TARGET (test code = TARG) 2+ NONE A SPHERO (test code = SPHC) 2+ NONE A STOMATO (test code = STOM) 2+ NONE A SARS-CoV (RAPID ANTIGEN) WW2022-06-21 20:52:00 Test Item Value Reference Range Interpretation Comments SARS-CoV (ANTIGEN) NEGATIVE NEGATIVE (test code = COVAG) COVID AG (test This test has been code = COVAGC) marketed under the FDA Emergency Use Authorization (EUA) to meet challenges of the COVID-19 pandemic. The validation standards normally enforced by the FDA and the [employer] (CAP) are more stringent than those required for this test. Therefore, the result should be interpreted with caution and close attention to other clinical and epidemiological data DIRECT INFLUENZA A AND B [id number] 20:50:00 Test Item Value Reference Range Interpretation Comments Direct Exam (test PRESUMPTIVE NEGATIVE FOR code = DE3) THE PRESENCE OF INFLUENZA ANTIGEN XR CHEST 1 VIEW PORTABLE *WW*2022-06-21 20:39:36 [facility] : 1970 Sex: FEXAMINATION:XR CH EST 1 VIEW PORTABLE *WW*CLINICAL INDICATION:Female, 51 years year old with DyspneaCOMPARISON: None.FINDINGS:Single view(s) of the chest submitted.Support Devices: None.Heart: Cardiac silhouette is normal in size.Mediastinum: Mediastinal contours are normal.Lungs: Pulmonary vessels are normal in size. B ilateral interstitial opacities/infiltrates identified with differential considerations including interstitial edema and bilateral pneumonia.Pleura: Small pleural effusions are present. No pneumothoraxis present.Bones: Visualized skeleton is normal.IMPRESSION:1. Interstitial edema versus bilateral pne umonia.2. Small pleural effusions.Electronically signed by: Fidencio Thurston MD 06/21/2022 8:39 PM CDT [id number] NATRIURETIC PEPTIDE *WW* 2022-06-21 20:38:00 Test Item Value Reference Range Interpretation Comments BNP (test code = 22 pg/mL See_Comment [Automated message] The A74) system which ge nerated this result tra nsmitted reference range : <=100. The reference r nicholas was not used to int erpret this result as earnest l/abnormal. SERUM MONOCLONAL *WW*2022-06-21 20:27:00 Test Item Value Reference Range Interpretation Comments PREG SRM (test code = PGS) NEGATIVE NEGATIVE C-ARM<1 HR W IMAGES*WW*2022-06-15 16:54:53 [facility] 1970 Sex: FFluoroscopyLocation Code: [id number] HISTORY: Surgical procedureComments: Fluoroscopy was provided during cervical injection. Total reference Air Kerma: 0.46 mGy. Approximate fluoroscopy time: 6.3 seconds. Images obtained: 4 IMPRESSION: Fluoroscopy services provided. Please see operative report for full details. Electronically signed by: Gabriele Castaneda MD 06/15/2022 4:54 PM CDT URINE MONOCLONAL *WW*2022-06-15 14:02:00 Test Item Value Reference Range Interpretation Comments PREG UR (test code = PGU) NEGATIVE NEGATIVE C-ARM<1 HR W IMAGES*WW*2022-05-12 08:26:58 [facility] : 1970 Sex: FClinical history: [...] by:Alexey Ott MD 05/12/2022 8:26 AM CDT [id number] URINE MONOCLONAL *WW*2022-05-11 12:51:00 Test Item Value Reference Range Interpretation Comments PREG UR (test code = PGU) NEGATIVE NEGATIVE C-ARM<1 HR W IMAGES*WW*2022-04-06 16:03:45 [facility] : 1970 Sex: FFluoroscopyLocation Code: [id number] HISTORY: Neck painComments: Fluoroscopy was provided during bilateral medial branch block. Approximately fluoroscopy time was 5.0 seconds. 2 fluoroscopic spot images were taken.IMPRESSION: Fluoroscopy services provided. Please see operative report for full details.Electronically signed by: Iglesia Garvey MD 04/06/2022 4:03 PM CDT [id number] URINE MONOCLONAL *WW*2022-04-06 12:39:00 Test Item Value Reference Range Interpretation Comments PREG UR (test code = PGU) NEGATIVE NEGATIVE Basic Metabolic Panel (NA, K, CL, CO2, GLUCOSE, BUN, CREATININE, CA)2022-02-26 09:48:31 Test Item Value Reference Range Interpretation Comments NA (test code = 143 mmol/L 135-145 7760481299) K (test code = 3.5 mmol/L 3.5-5.0 9058370378) CL (test code = 114 mmol/L 98-108 H 3547314265) CO2 TOTAL (test code = 24 mmol/L 23-31 3431952791) AGAP (test code = 2-16 9652356639) BUN (test code = 9 mg/dL 7-23 2103988583) GLUCOSE (test code = 96 mg/dL 70-110 1920115334) CREATININE (test code = 0.92 mg/dL 0.50-1.04 4882603548) CALCIUM (test code = 8.1 mg/dL 8.6-10.6 L 5857861415) eGFR (test code = mL/min/1.73m2 5005832316) LUCILLE (test code = LUCILLE) Association of [...] tests). Lab Interpretation Abnormal (test code = 37463-7) [facility] with [id number] 09:36:32 Test Item Value Reference Range Interpretation Comments WBC (test code = See_Comment [Automated 3590-2) message] The sy stem which generated this [...] RDW-SD (test code = 46.8 fL 39.0-49.9 55602-8) RDW-CV (test code = 16.7 % 12.0-15.5 H 788-0) PLT (test code = See_Comment [Automated 777-3) message] The sy stem which generated this result transmitted reference range : 166 - 358 10*3/ ?L. The reference r nicholas was not used to interpret this result as normal/abnormal . MPV (test code = 10.8 fL 9.5-12.9 38223-9) NRBC/100 WBC (test See_Comment [Automat ed code = 0966109392) message] The system which generated this result transmitted reference range : 0.0 - 10.0 /100 WBCs. The refer ence range was not u sed to interpret th is result as normal/abnormal . NRBC x10^3 (test code <0.01 See_Comment [Auto mated = 3833202512) message] The s ystem which generated this result transmitted reference range : 10*3/?L. The reference range was not used to interpret this result as normal/abnormal . GRAN MAT (NEUT) % 54.4 % (test code = 770-8) IMM GRAN % (test code 0.20 % = 9392663476) LYMPH % (test code = 31.5 % 736-9) MONO % (test code = 8.7 % 5905-5) EOS % (test code = 3.2 % 713-8) BASO % (test code = 2.0 % 706-2) GRAN MAT x10^3(ANC) 2.69 10*3/uL 1.88-7.09 (test code = 0331365657) IMM GRAN x10^3 (test <0.03 0.00-0.06 code = 4993657378) LYMPH x10^3 (test code 1.56 10*3/uL 1.32-3.29 = 731-0) MONO x10^3 (test code 0.43 10*3/uL 0.33-0.92 = 742-7) EOS x10^3 (test code = 0.16 10*3/uL 0.03-0.39 711-2) BASO x10^3 (test code 0.10 10*3/uL 0.01-0.07 H = 704-7) Lab Interpretation Abnormal (test code = 67262-8) [facility] [id number] 04:00:15 Test Item Value Reference Interpretation Comments Range TROPONIN I (test 0.004 ng/mL See_Comment [Automated code = 9343111198) message] The system which generated this result [...] biotin. Lab Interpretation Normal (test code = 73015-9) [facility] [id number] 04:00:15 Test Item Value Reference Range Interpretation Comments NT-proBNP (test code 42 pg/mL See_Comment [Autom ated = 7050442137) message] The system which generated this result transmitted reference range : <=125. The reference range was not used to interpret this result as normal/abnormal . LUCILLE (test code = LUCILLE) Biotin has been reported to cause a negative bias, interpret results relative to patient's use of biotin. Lab Interpretation Normal (test code = 25785-8) [facility] CenterCOMP. METABOLIC PAN[facility] ([id number])2022-02-26 03:48:34 Test Item Value Reference Range Interpretation Comments NA (test code = 142 mmol/L 135-145 8873536601) K (test code = 3.6 mmol/L 3.5-5.0 Slight 3134754057) hemolysis CL (test code = 109 mmol/L 98-108 H 3519355861) CO2 TOTAL (test code 26 mmol/L 23-31 = 8974187058) AGAP (test code = 2-16 3463437288) BUN (test code = 10 mg/dL 7-23 Slight 5598675849) hemolysis GLUCOSE (test code = 84 mg/dL 70-110 6347640084) CREATININE (test code 0.99 mg/dL 0.50-1.04 = 3787048517) TOTAL BILI (test code 0.4 mg/dL 0.1-1.1 = 8649331515) CALCIUM (test code = 8.9 mg/dL 8.6-10.6 5196877023) T PROTEIN (test code 6.5 g/dL 6.3-8.2 = 1436010565) ALBUMIN (test code = 4.0 g/dL 3.5-5.0 3166880777) ALK PHOS (test code = 71 U/L 34-122 Slight 0155176037) hemolysis ALTv (test code = 18 U/L 5-35 1742-6) AST(SGOT) (test code 25 U/L 13-40 Slight = 8389614105) hemolysis eGFR (test code = mL/min/1.73m2 2448488525) LUCILLE (test code = LUCILLE) Association of [...] tests). Lab Interpretation Abnormal (test code = 37143-3) [facility] CenterL[facility] 03:48:34 Test Item Value Reference Range Interpretation Comments LIPASE (test code = 8738775558) 166 U/L 0-220 Lab Interpretation (test code = Normal 93640-7) [facility] WITH [id number] 03:34:33 Test Item Value Reference Range Interpretation [...] RDW-SD (test code = 47.2 fL 39.0-49.9 58137-2) RDW-CV (test code = 16.8 % 12.0-15.5 H 788-0) PLT (test code = See_Comment [Automated 777-3) message] The sy stem which generated this result transmitted reference range : 166 - 358 10*3/ ?L. The reference r nicholas was not used to interpret this result as normal/abnormal . MPV (test code = 10.3 fL 9.5-12.9 12615-5) NRBC/100 WBC (test See_Comment [Automat ed code = [id number]) message] The system which generated this result transmitted reference range : 0.0 - 10.0 /100 WBCs. The refer ence range was not u sed to interpret th is result as normal/abnormal . NRBC x10^3 (test code <0.01 See_Comment [Auto mated = [id number]) message] The s ystem which generated this result transmitted reference range : 10*3/?L. The reference range was not used to interpret this result as normal/abnormal . GRAN MAT (NEUT) % 51.0 % (test code = 770-8) IMM GRAN % (test code 0.20 % = [id number]) LYMPH % (test code = 31.6 % 736-9) MONO % (test code = 10.7 % 5905-5) EOS % (test code = 4.3 % 713-8) BASO % (test code = 2.2 % 706-2) GRAN MAT x10^3(ANC) 2.59 10*3/uL 1.88-7.09 (test code = [id number]) IMM GRAN x10^3 (test <0.03 0.00-0.06 code = [id number]) LYMPH x10^3 (test code 1.60 10*3/uL 1.32-3.29 = 731-0) MONO x10^3 (test code 0.54 10*3/uL 0.33-0.92 = 742-7) EOS x10^3 (test code = 0.22 10*3/uL 0.03-0.39 711-2) BASO x10^3 (test code 0.11 10*3/uL 0.01-0.07 H = 704-7) Lab Interpretation Abnormal (test code = 93136-0) [facility] [id number] 06:03:26 Test Item Value Reference Interpretation Comments Range TROPONIN I (test 0.003 ng/mL See_Comment [Automated code = 9928931465) message] The system which generated this result [...] biotin. Lab Interpretation Normal (test code = 03064-1) [facility] [id number] 03:56:22 Test Item Value Reference Interpretation Comments Range TROPONIN I (test 0.003 ng/mL See_Comment [Automated code = 8626697270) message] The system which generated this result [...] biotin. Lab Interpretation Normal (test code = 11213-8) [facility] [id number] 03:53:00 Test Item Value Reference Range Interpretation Comments NT-proBNP (test code 143 pg/mL See_Comment H [Autom ated = 1133633380) message] The system which generated this result transmitted reference range : <=125. The reference range was not used to interpret this result as normal/abnormal . LUCILLE (test code = LUCILLE) Biotin has been reported to cause a negative bias, interpret results relative to patient's use of biotin. Lab Interpretation Abnormal (test code = 02081-2) [facility]OLIC [facility] ([id number])2022-02-23 03:45:59 Test Item Value Reference Range Interpretation Comments NA (test code = 140 mmol/L 135-145 8038942647) K (test code = 4.0 mmol/L 3.5-5.0 8931352516) CL (test code = 110 mmol/L 98-108 H 9585634932) CO2 TOTAL (test code = 17 mmol/L 23-31 L 9341430889) AGAP (test code = 2-16 2204601189) BUN (test code = 14 mg/dL 7-23 1538828587) GLUCOSE (test code = 105 mg/dL 70-110 9140606105) CREATININE (test code = 1.03 mg/dL 0.50-1.04 4222878773) TOTAL BILI (test code = 0.3 mg/dL 0.1-1.6 2812905000) CALCIUM (test code = 8.9 mg/dL 8.6-10.6 9817639777) T PROTEIN (test code = 6.1 g/dL 6.3-8.2 L 9774480849) ALBUMIN (test code = 3.8 g/dL 3.5-5.0 1405511782) ALK PHOS (test code = 91 U/L 34-122 9814973460) ALTv (test code = 19 U/L 5-35 1742-6) AST(SGOT) (test code = 21 U/L 13-40 6012571305) eGFR (test code = mL/min/1.73m2 8298229253) LUCILLE (test code = LUCILLE) Association of [...] tests). Lab Interpretation Abnormal (test code = 86328-4) [facility] WITH [id number] 03:23:19 Test Item Value Reference Range Interpretation [...] RDW-SD (test code = 45.7 fL 39.0-49.9 72158-3) RDW-CV (test code = 16.6 % 12.0-15.5 H 788-0) PLT (test code = See_Comment [Automated 777-3) message] The sy stem which generated this result transmitted reference range : 166 - 358 10*3/ ?L. The reference r nicholas was not used to interpret this result as normal/abnormal . MPV (test code = 10.9 fL 9.5-12.9 25497-5) NRBC/100 WBC (test See_Comment [Automat ed code = 9597485956) message] The system which generated this result transmitted reference range : 0.0 - 10.0 /100 WBCs. The refer ence range was not u sed to interpret th is result as normal/abnormal . NRBC x10^3 (test code <0.01 See_Comment [Auto mated = 1261827792) message] The s ystem which generated this result transmitted reference range : 10*3/?L. The reference range was not used to interpret this result as normal/abnormal . GRAN MAT (NEUT) % 53.8 % (test code = 770-8) IMM GRAN % (test code 0.20 % = 7944585744) LYMPH % (test code = 34.0 % 736-9) MONO % (test code = 7.9 % 5905-5) EOS % (test code = 2.6 % 713-8) BASO % (test code = 1.5 % 706-2) GRAN MAT x10^3(ANC) 3.25 10*3/uL 1.88-7.09 (test code = 5547236657) IMM GRAN x10^3 (test <0.03 0.00-0.06 code = 2854235798) LYMPH x10^3 (test code 2.06 10*3/uL 1.32-3.29 = 731-0) MONO x10^3 (test code 0.48 10*3/uL 0.33-0.92 = 742-7) EOS x10^3 (test code = 0.16 10*3/uL 0.03-0.39 711-2) BASO x10^3 (test code 0.09 10*3/uL 0.01-0.07 H = 704-7) Lab Interpretation Abnormal (test code = 98339-7) [facility], THIRD [id number] 09:21:37 Test Item Value Reference Range Interpretation Comments TSH, THIRD TEST NOT 0.400-4.100 TESTING CANNOT BE GENERATION (test PERFORMED UIU/ML PERFORM ED DUE TO AN code = 2821) INTERFERING SUBSTANCE. LB GES DELETED. [id number] 09:21:37 Test Item Value Reference Range Interpretation Comments PROGESTERONE (test TEST NOT SEE BELOW TESTING CANNOT BE code = 2790) PERFORMED NG/ML PERFORMED DU E TO AN [...] . . . N G/ML <0.20 1ST TRIMESTER. . . . . . . . . . . NG/ML 11.00-44.30 2ND TRIMESTER. . . . . . . . . . . NG/ML 25.40-83.30 3RD TRIMESTER. . . . . . . . . . . NG/ML 58.70-214.00 [id number] 09:21:37 Test Item Value Reference Range Interpretation Comments ESTRADIOL (test TEST NOT SEE BELOW TESTING CAN NOT BE code = 2505) PERFORMED PG/ML PERFORMED DU E TO AN INTERFERING SUBSTANCE. LB GES DELETED. UNLESS OTHERWISE INDIC ATED, ALL TESTING PERFORMED [facility], [facility]. [address] [place] [id number] [place] [address] DIRECTOR: SADIQ VANEGAS M.D. CLIA NUMBER [id number] CAP [facility] [place]. [id number] COMPREHENSIVE METABOLIC [id number] 09:21:22 Test Item Value Reference Range Interpretation Comments GLUCOSE (test code TEST NOT 70-99 TESTING CANNOT BE = 7) PERFORMED MG/DL PERFORMED DU E TO AN INTERFERING SUBSTANCE. LB GES DELETED. BUN (test code = TEST NOT 02-20) PERFORMED MG/DL CREATININE (test TEST NOT 0.60-1.30 code = 2213) PERFORMED MG/DL eGFR (2020 CKD-EPI) TEST NOT >60 (test code = ) PERFORMED ML/MIN/1.73 CALC BUN/CREAT TEST NOT 6-28 (test code = 2234) PERFORMED RATIO SODIUM (test code = TEST NOT 891-539 2844) PERFORMED MEQ/L POTASSIUM (test TEST NOT 3.5-5.4 [...] code = TEST NOT 2218) PERFORMED U/L [id number] 00:00:00 Test Item Value Reference Range Interpretation Comments TSH, THIRD GENERATION TEST NOT PERFORMED (test code = 282) UIU/ML [id number] 00:00:00 Test Item Value Reference Range Interpretation Comments TSH, THIRD GENERATION TEST NOT PERFORMED (test code = 282) UIU/ML [id number] 00:00:00 Test Item Value Reference Range Interpretation Comments TSH, THIRD GENERATION TEST NOT PERFORMED (test code = 282) UIU/ML COMPREHENSIVE METABOLIC [id number] 00:00:00 Test Item Value Reference Range Interpretation Comments GLUCOSE (test code = TEST NOT PERFORMED 2216) MG/DL BUN (test code = 2207) TEST NOT PERFORMED MG/DL CREATININE (test code = TEST NOT PERFORMED 2213) MG/DL eGFR (2020 CKD-EPI) TEST NOT PERFORMED (test code = ) ML/MIN/1.73 CALC BUN/CREAT (test TEST NOT PERFORMED [...] 221) TEST NOT PERFORMED U/L COMPREHENSIVE METABOLIC [id number] 00:00:00 Test Item Value Reference Range Interpretation Comments GLUCOSE (test code = TEST NOT PERFORMED 2216) MG/DL BUN (test code = 2207) TEST NOT PERFORMED MG/DL CREATININE (test code = TEST NOT PERFORMED 2213) MG/DL eGFR (2020 CKD-EPI) TEST NOT PERFORMED (test code = ) ML/MIN/1.73 CALC BUN/CREAT (test TEST NOT PERFORMED [...] TOTAL (test TEST NOT PERFORMED code = 7) MG/DL ALKALINE PHOSPHATASE TEST NOT PERFORMED (test code = 2203) U/L AST (test code = 2218) TEST NOT PERFORMED U/L ALT (test code = 221) TEST NOT PERFORMED U/L [id number] 00:00:00 Test Item Value Reference Range Interpretation Comments PROGESTERONE (test code TEST NOT PERFORMED = 2790) NG/ML [id number] 00:00:00 Test Item Value Reference Range Interpretation Comments PROGESTERONE (test code TEST NOT PERFORMED = 2790) NG/ML [id number] 00:00:00 Test Item Value Reference Range Interpretation Comments ESTRADIOL (test code = TEST NOT PERFORMED 2505) PG/ML [id number] 00:00:00 Test Item Value Reference Range Interpretation Comments ESTRADIOL (test code = TEST NOT PERFORMED 2505) PG/ML [id number] 00:00:00 Test Item Value Reference Range Interpretation Comments ESTRADIOL (test code = TEST NOT PERFORMED 2505) PG/ML TROPONIN [id number] 14:05:29 Test Item Value Reference Interpretation Comments Range TROPONIN I (test <0.012 See_Comment [Automated code = 3457773827) message] The system which generated this result [...] biotin. Lab Interpretation Normal (test code = 33233-6) [facility] [id number] 14:02:07 Test Item Value Reference Range Interpretation Comments NT-proBNP (test code 343 pg/mL See_Comment H [Autom ated = 0043878970) message] The system which generated this result transmitted reference range : <=125. The reference range was not used to interpret this result as normal/abnormal . LUCILLE (test code = LUCILLE) Biotin has been reported to cause a negative bias, interpret results relative to patient's use of biotin. Lab Interpretation Abnormal (test code = 14527-1) [facility]. METABOLIC PANEL ([id number])2022-01-29 13:53:30 Test Item Value Reference Range Interpretation Comments NA (test code = 146 mmol/L 135-145 H 7780240177) K (test code = 4.2 mmol/L 3.5-5.0 2121793924) CL (test code = 114 mmol/L 98-108 H 7820237464) CO2 TOTAL (test code = 23 mmol/L 23-31 9756319809) AGAP (test code = 2-16 0486196230) BUN (test code = 14 mg/dL 7-23 4246456825) GLUCOSE (test code = 72 mg/dL 70-110 3975529318) CREATININE (test code = 1.08 mg/dL 0.50-1.04 H 3187177351) TOTAL BILI (test code = 0.3 mg/dL 0.1-1.0 9662223049) CALCIUM (test code = 9.1 mg/dL 8.6-10.6 6807621411) T PROTEIN (test code = 6.1 g/dL 6.3-8.2 L 6967158512) ALBUMIN (test code = 3.8 g/dL 3.5-5.0 4330565196) ALK PHOS (test code = 86 U/L 34-122 9835776955) ALTv (test code = 26 U/L 5-35 1742-6) AST(SGOT) (test code = 28 U/L 13-40 3259705007) eGFR (test code = mL/min/1.73m2 4240540873) LUCILLE (test code = LUCILLE) Association of [...] tests). Lab Interpretation Abnormal (test code = 23357-7) [facility] + LACTIC [id number] 13:52:59 Test Item Value Reference Range Interpretation Comments PH (test code = 7.32-7.42 6661361010) PCO2 WYATT (test code = See_Comment [Auto mated 8391527083) message] The sy stem which generated this result transmitted reference range : 41 - 51 mmHg. The reference range was not used to interpret this result as normal/abnormal . PO2 WYATT (test code = See_Comment L [Autom ated 9322509984) message] The sy stem which generated this result transmitted reference range : 25 - 40 mmHg. The reference range was not used to interpret this result as normal/abnormal . HCO3 WYATT (test code = See_Comment [Auto mated 6017973363) message] The sy stem which generated this result transmitted reference range : 24 - 28 mEq/L. The reference range was not used to interpret this result as normal/abnormal . AC VBE(BEAKER) (test mEq/L code = 3994409847) THB WYATT (test code = 11.4 g/dL 12.0-16.0 L 7225583766) %O2HB WYATT (test code = 21.7 % 52.0-63.0 L 1456970868) %COHB WYATT (test code = 0.3 % 0.0-1.5 7686078615) %METHB WYATT (test code = 1.1 % 0.4-1.5 4454954399) VOL%O2 WYATT (test code = 3.5 % 6.0-12.0 L 9500501138) NA (test code = 145 mmol/L 135-145 1790484062) K+ (test code = 4.0 mmol/L 3.5-5.0 6417902848) AC CA IONZ (test code = 5.00 mg/dL 4.50-5.30 6447634350) GLUCOSE (test code = 70 mg/dL 70-110 3759633116) LACTIC ACID (test code 2.81 mmol/L 0.50-2.20 H = 8038023509) Lab Interpretation Abnormal (test code = 05071-9) [facility] WITH [id number] 13:41:47 Test Item Value Reference Range Interpretation [...] RDW-SD (test code = 47.6 fL 39.0-49.9 32131-4) RDW-CV (test code = 15.9 % 12.0-15.5 H 788-0) PLT (test code = See_Comment [Automated 777-3) message] The sy stem which generated this result transmitted reference range : 166 - 358 10*3/ ?L. The reference r nicholas was not used to interpret this result as normal/abnormal . MPV (test code = 10.9 fL 9.5-12.9 65806-9) NRBC/100 WBC (test See_Comment [Automat ed code = 9949540897) message] The system which generated this result transmitted reference range : 0.0 - 10.0 /100 WBCs. The refer ence range was not u sed to interpret th is result as normal/abnormal . NRBC x10^3 (test code <0.01 See_Comment [Auto mated = 7470157160) message] The s ystem which generated this result transmitted reference range : 10*3/?L. The reference range was not used to interpret this result as normal/abnormal . GRAN MAT (NEUT) % 80.7 % (test code = 770-8) IMM GRAN % (test code 0.30 % = 7098776127) LYMPH % (test code = 12.4 % 736-9) MONO % (test code = 4.9 % 5905-5) EOS % (test code = 0.9 % 713-8) BASO % (test code = 0.8 % 706-2) GRAN MAT x10^3(ANC) 6.92 10*3/uL 1.88-7.09 (test code = 5941425249) IMM GRAN x10^3 (test 0.03 10*3/uL 0.00-0.06 code = 8074681743) LYMPH x10^3 (test code 1.06 10*3/uL 1.32-3.29 L = 731-0) MONO x10^3 (test code 0.42 10*3/uL 0.33-0.92 = 742-7) EOS x10^3 (test code = 0.08 10*3/uL 0.03-0.39 711-2) BASO x10^3 (test code 0.07 10*3/uL 0.01-0.07 = 704-7) Lab Interpretation Abnormal (test code = 53732-3) [facility] W/AUTO DIFF WITH [id number] 05:43:21 Test Item Value Reference Range Interpretation [...] RBCS 0.00 K/UL 0.00-0.11 (test code = 73042) HEMOGLOBIN [id number] 05:31:32 Test Item Value Reference Range Interpretation Comments HEMOGLOBIN A1c (test code = 18252) 6.4 % 4.2-5.6 H HEMOGLOBIN [id number] 00:00:00 Test Item Value Reference Range Interpretation Comments HEMOGLOBIN A1c (test code = 30220) 6.4 % HEMOGLOBIN [id number] 00:00:00 Test Item Value Reference Range Interpretation Comments HEMOGLOBIN A1c (test code = 14462) 6.4 % HEMOGLOBIN [id number] 00:00:00 Test Item Value Reference Range Interpretation Comments HEMOGLOBIN A1c (test code = 35037) 6.4 % CBC W/AUTO [id number] 00:00:00 Test Item Value Reference Range Interpretation [...] NUCLEATED RBCS (test code = 0.00 K/UL 83949) CBC W/AUTO [id number] 00:00:00 Test Item Value Reference Range Interpretation [...] NUCLEATED RBCS (test code = 0.00 K/UL 59128) CBC W/AUTO [id number] 00:00:00 Test Item Value Reference Range Interpretation [...] NUCLEATED RBCS (test code = 0.00 K/UL 66405) C-ARM<1 HR W IMAGES*WW*2022-01-05 15:46:44 [facility] : 1970 Sex: FFluoroscopyLocation Code: [id number] HISTORY: SURGICAL PROCEDURE , Back painComments: Fluoroscopy was provided duringsympathetic nerve block. Approximately fluoroscopy time was 32.6 seconds. 3 images were obtained.IMPRESSION: Fluoroscopy services provided. Please see operative report for full details.Electronically signed by: Gabriele Castaneda MD 01/05/2022 3:46 PM CDT [id number] URINE MONOCLONAL *WW*2022-01-05 11:24:00 Test Item Value Reference Range Interpretation Comments PREG UR (test code = PGU) NEGATIVE NEGATIVE CBC WITH [id number] 12:44:09 Test Item Value Reference Range Interpretation Comments WBC (test code = See_Comment H [Automated 3990-2) message] The sy stem which generated this result transmitted reference range : 4.30 - 11.10 10*3/?L. The reference range was not used to interpret this result as normal/abnormal . RBC (test code = See_Comment L [Automated 189-8) message] The sy stem which generated this [...] RDW-SD (test code = 49.5 fL 39.0-49.9 97254-2) RDW-CV (test code = 15.5 % 12.0-15.5 788-0) PLT (test code = See_Comment H [Automated 777-3) message] The sy stem which generated this result transmitted reference range : 166 - 358 10*3/ ?L. The reference r nicholas was not used to interpret this result as normal/abnormal . MPV (test code = 10.3 fL 9.5-12.9 76468-4) NRBC/100 WBC (test See_Comment [Automat ed code = 9794994746) message] The system which generated this result transmitted reference range : 0.0 - 10.0 /100 WBCs. The refer ence range was not u sed to interpret th is result as normal/abnormal . NRBC x10^3 (test code See_Comment [Auto mated = 8202095060) message] The s ystem which generated this result transmitted reference range : 10*3/?L. The reference range was not used to interpret this result as normal/abnormal . GRAN MAT (NEUT) % 64.4 % (test code = 770-8) IMM GRAN % (test code 3.60 % = 0557931867) LYMPH % (test code = 23.5 % 736-9) MONO % (test code = 7.3 % 5905-5) EOS % (test code = 0.9 % 713-8) BASO % (test code = 0.3 % 706-2) GRAN MAT x10^3(ANC) 7.19 10*3/uL 1.88-7.09 H (test code = 5509379106) IMM GRAN x10^3 (test 0.40 10*3/uL 0.00-0.06 H code = 7749017895) LYMPH x10^3 (test code 2.63 10*3/uL 1.32-3.29 = 731-0) MONO x10^3 (test code 0.82 10*3/uL 0.33-0.92 = 742-7) EOS x10^3 (test code = 0.10 10*3/uL 0.03-0.39 711-2) BASO x10^3 (test code 0.03 10*3/uL 0.01-0.07 = 704-7) POLYCHROMASIA (test 2+ See_Comment [Automa britney code = 77598-5) message] The system which generated this result [...] . Lab Interpretation Abnormal (test code = 55568-8) [facility] [id number] 10:06:53 Test Item Value Reference Range Interpretation Comments NT-proBNP (test code 117 pg/mL See_Comment [Autom ated = 6394417565) message] The system which generated this result transmitted reference range : <=125. The reference range was not used to interpret this result as normal/abnormal . LUCILLE (test code = LUCILLE) Biotin has been reported to cause a negative bias, interpret results relative to patient's use of biotin. Lab Interpretation Normal (test code = 60238-7) [facility] (06888)2021-12-07 10:02:35 Test Item Value Reference Range Interpretation Comments NA (test code = 140 mmol/L 135-145 1955160026) K (test code = 3.7 mmol/L 3.5-5.0 6268408210) CL (test code = 104 mmol/L 98-108 2315393747) CO2 TOTAL (test code = 31 mmol/L 23-31 6126027057) AGAP (test code = 2-16 6507564997) BUN (test code = 21 mg/dL 7-23 6291906858) GLUCOSE (test code = 91 mg/dL 70-110 1016400975) CREATININE (test code = 1.00 mg/dL 0.50-1.04 4612028784) TOTAL BILI (test code = 0.3 mg/dL 0.1-1.4 2709597305) CALCIUM (test code = 8.1 mg/dL 8.6-10.6 L 4966511852) T PROTEIN (test code = 5.9 g/dL 6.3-8.2 L 3270472528) ALBUMIN (test code = 3.4 g/dL 3.5-5.0 L 1125378227) ALK PHOS (test code = 87 U/L 34-122 1479586949) ALTv (test code = 39 U/L 5-35 H 1742-6) AST(SGOT) (test code = 24 U/L 13-40 1538501678) eGFR (test code = mL/min/1.73m2 7748994195) LUCILLE (test code = LUCILLE) Association of [...] tests). Lab Interpretation Abnormal (test code = 50517-2) [facility] Test Item Value Reference Range Interpretation Comments MAGNESIUM (test code = 6523991627) 2.2 mg/dL 1.7-2.4 Lab Interpretation (test code = Normal 45205-2) [facility] CenterVIT[facility]IN B12, [id number] 22:18:47 Test Item Value Reference Range Interpretation Comments VIT B12 (test code = 979 pg/mL 240-930 H 4432459594) LUCILLE (test code = LUCILLE) Biotin has been reported to cause a positive bias, interpret results relative to patient's use of biotin. Lab Interpretation (test Abnormal code = 15518-0) [facility] CenterPROCALCITONIN2022-04-05 21:47:27 Test Item Value Reference Range Interpretation Comments Procalcitonin (test 0.05 ng/mL <0.07 code = 1927643861) LUCILLE (test code = LUCILLE) INTERPRETATION OF [...] lung abscess/empyema. For further information please refer to:[email or web address] Lab Interpretation Normal (test code = 49001-7) [facility] CenterV[facility] D, [id number] 20:41:30 Test Item Value Reference Range Interpretation Comments VIT D 25OH (test code = <13 25-80 L 53889-7) LUCILLE (test code = LUCILLE) Deficiency: <20 ng/mLInsufficiency: 20-24 ng/mLOptimal: 25-80 ng/mL Lab Interpretation (test Abnormal code = 22731-2) [facility] CenterDIFF CON[facility]ULT [id number] 20:04:06 LEUKOCYTOSIS WITH ABSOLUTE NEUTROPHILIA AND INCREASED IMMATURE GRANULOCYTES/LEFT SHIFT, CONSISTENT WITH PATIENT'S KNOWN INFECTION. NORMOCYTIC, NORMOCHROMIC ANEMIA. MILD THROMBOCYTOSIS.[facility] CenterFR [id number] 18:31:30 Test Item Value Reference Range Interpretation Comments FREE T3 (test code = 4010594436) 2.49 pg/mL 2.77-5.27 L Lab Interpretation (test code = Abnormal 41946-0) [facility]-REACTIVE [id number] 17:54:11 Test Item Value Reference Range Interpretation Comments CRP (test code = 1082629950) 0.2 mg/dL <0.8 Lab Interpretation (test code = Normal 77107-2) [facility] CenterFR [id number] 13:49:44 Test Item Value Reference Range Interpretation Comments FREE T4 (test code = See_Comment L [Autom ated message] 3569140458) The system [employer] generated this result transmitted ref erence range: 0.78 - 2 .20 ng/dL:. The ref erence range was not u sed to interpret this result as normal/abnor mal. Lab Interpretation (test Abnormal code = 06984-4) [facility] WITH [id number] 12:20:38 Test Item Value Reference Range Interpretation Comments WBC (test code = See_Comment H [Automated 0590-2) message] The system which generated this result [...] RDW-SD (test code = 48.5 fL 39.0-49.9 12591-7) RDW-CV (test code = 15.3 % 12.0-15.5 788-0) PLT (test code = See_Comment [Automated 777-3) message] The system which generated this result transmit britney reference range : 166 - 358 10*3/ ?L. The reference range was not u sed to interpret th is result as normal/abnormal . MPV (test code = 10.4 fL 9.5-12.9 67325-1) NRBC/100 WBC (test See_Comment [Automat ed code = 8738370653) message] The system which generated this result transmit britney reference range : 0.0 - 10.0 /100 WBCs. The reference range was not used to interpret this result as normal/abnormal . NRBC x10^3 (test code See_Comment [Auto mated = 6208898761) message] The system which generated this result transmit britney reference range : 10*3/?L. The reference range was not used to interpret this result as normal/abnormal . GRAN MAT (NEUT) % 74.0 % (test code = 770-8) IMM GRAN % (test code 3.20 % = 2628304124) LYMPH % (test code = 14.7 % 736-9) MONO % (test code = 7.7 % 5905-5) EOS % (test code = 0.1 % 713-8) BASO % (test code = 0.3 % 706-2) GRAN MAT x10^3(ANC) 11.18 10*3/uL 1.88-7.09 H (test code = 0744925731) IMM GRAN x10^3 (test 0.48 10*3/uL 0.00-0.06 H code = 0788908808) LYMPH x10^3 (test code 2.22 10*3/uL 1.32-3.29 = 731-0) MONO x10^3 (test code 1.17 10*3/uL 0.33-0.92 H = 742-7) EOS x10^3 (test code = <0.03 0.03-0.39 L 711-2) BASO x10^3 (test code 0.04 10*3/uL 0.01-0.07 = 704-7) Lab Interpretation Abnormal (test code = 87211-3) [facility] CenterFERRITIN [id number] 11:45:10 Test Item Value Reference Range Interpretation Comments FERRITIN (test code = 16.1 ng/mL 11.0-264.0 1966291493) LUCILLE (test code = LUCILLE) Biotin has been reported to cause a negative bias, interpret results relative to patient's use of biotin. Lab Interpretation (test Normal code = 93197-0) [facility] CenterTHYROID STIMULATING [id number] 11:41:28 Test Item Value Reference Range Interpretation Comments TSH (test code = See_Comment L [Automated message] 8791786955) The system [employer] generated this result transmitted ref erence range: 0.45 - 4 .70 mIU/L. The refe rence range was not u sed to interpret this result as normal/abnor mal. Lab Interpretation (test Abnormal code = 08551-5) [facility] CenterSEDIMENTATION [id number] 11:30:34 Test Item Value Reference Range Interpretation Comments ESR (test code = See_Comment [Automated message] 7939270178) The system [employer] generated this result transmitted ref erence range: 0 - 20 m m/HR. The reference r nicholas was not used to interpret this result as normal/abnor mal. Lab Interpretation (test Normal code = 54568-8) [facility] [id number] 11:30:08 Test Item Value Reference Interpretation Comments Range TROPONIN I (test 0.023 ng/mL See_Comment [Automated code = [id number]) message] The system which generated this result [...] biotin. Lab Interpretation Normal (test code = 84727-6) [facility]. METABOLIC PANEL (48753)2021-12-06 11:28:58 Test Item Value Reference Range Interpretation Comments NA (test code = 140 mmol/L 135-145 [id number]) K (test code = 3.1 mmol/L 3.5-5.0 L [id number]) CL (test code = 106 mmol/L 98-108 6758840836) CO2 TOTAL (test code = 31 mmol/L 23-31 6174050926) AGAP (test code = 2-16 5998512067) BUN (test code = 24 mg/dL 7-23 H 9463628389) GLUCOSE (test code = 88 mg/dL 70-110 8582616646) CREATININE (test code = 0.95 mg/dL 0.50-1.04 7300705162) TOTAL BILI (test code = 0.3 mg/dL 0.1-1.8 4802969362) CALCIUM (test code = 8.4 mg/dL 8.6-10.6 L 8585470620) T PROTEIN (test code = 5.7 g/dL 6.3-8.2 L 3377154648) ALBUMIN (test code = 3.3 g/dL 3.5-5.0 L 5281572295) ALK PHOS (test code = 83 U/L 34-122 9831035741) ALTv (test code = 44 U/L 5-35 H 1742-6) AST(SGOT) (test code = 27 U/L 13-40 0813311305) eGFR (test code = mL/min/1.73m2 8725209103) LUCILLE (test code = LUCILLE) Association of [...] tests). Lab Interpretation Abnormal (test code = 03228-3) [id number] 11:26:47 Test Item Value Reference Range Interpretation Comments NT-proBNP (test code 442 pg/mL See_Comment H [Autom ated = 8824430227) message] The system which generated this result transmitted reference range : <=125. The reference range was not used to interpret this result as normal/abnormal . LUCILLE (test code = LUCILLE) Biotin has been reported to cause a negative bias, interpret results relative to patient's use of biotin. Lab Interpretation Abnormal (test code = 55397-8) [facility] CenterIRON [id number] 11:19:22 Test Item Value Reference Range Interpretation Comments IRON (test code = 7070829749) 34 ug/dL 50-160 L TIBC (test code = 4469843472) 408 ug/dL 250-410 % FE SAT (test code = 9602644829) 8 % 20-50 L Lab Interpretation (test code = Abnormal 63326-0) [facility]MAGN[facility]IUM2022-[facility]-05 11:18:47 Test Item Value Reference Range Interpretation Comments MAGNESIUM (test code = 2134621451) 1.9 mg/dL 1.7-2.4 Lab Interpretation (test code = Normal 26514-4) [facility]PHOS[facility]ORUS2022-[facility]-05 11:18:02 Test Item Value Reference Range Interpretation Comments PHOSPHORUS (test code = 8326086092) 3.3 mg/dL 2.5-5.0 Lab Interpretation (test code = Normal 55923-3) [facility] CenterLIPID PANEL (14188)(TOTAL CHOLESTEROL, TRIGLYCERIDES, HDL)2021-12-06 11:09:41 Test Item Value Reference Range Interpretation Comments CHOL (test code = 208 mg/dL 120-200 H 1772764964) HDL (test code = 99 mg/dL >50 2036085901) HDLC RATIO (test code = See_Comment [Au tomated message] 4366489561) The system [employer] generated this result transmit britney reference range : <=4.5. The refe rence range was not u sed to interpret th is result as normal/abnormal . TRIG (test code = 172 mg/dL 30-170 H 5828834559) LDL CHOL (test code = 75 mg/dL See_Comment [Auto mated message] 64850-6) The system [employer] generated this result transmit britney reference range : <=160. The refe rence range was not u sed to interpret th is result as normal/abnormal . VLDL (test code = 34 mg/dL 5-60 6724884317) Lab Interpretation (test Abnormal code = 30334-0) [facility] CenterURIC [id number] 11:09:21 Test Item Value Reference Range Interpretation Comments URIC ACID (test code = 5222747290) 6.1 mg/dL 2.9-6.0 H Lab Interpretation (test code = Abnormal 75384-3) [facility] CenterGLYCOSYLATED HEMOGLOBIN (A1C)2021-12-06 08:48:15 Test Item Value Reference Range Interpretation Comments HGB A1C (test code = 5.7 % 4.0-5.7 4548-4) LUCILLE (test code = LUCILLE) Reference RangesNormal: <5.7%Prediabetes: 5.7 - 6.4%Diabetes: > 6.5% Lab Interpretation (test Normal code = 43417-2) [facility] CenterCBC WITH [id number] 01:01:58 Test Item Value Reference Range Interpretation [...] RDW-SD (test code = 46.4 fL 39.0-49.9 29071-1) RDW-CV (test code = 15.2 % 12.0-15.5 788-0) PLT (test code = See_Comment H [Automated 777-3) message] The system which generated this result transmit britney reference range : 166 - 358 10*3/ ?L. The reference range was not u sed to interpret th is result as normal/abnormal . MPV (test code = 10.6 fL 9.5-12.9 20944-6) NRBC/100 WBC (test See_Comment [Automat ed code = 9384552428) message] The system which generated this result transmit britney reference range : 0.0 - 10.0 /100 WBCs. The reference range was not used to interpret this result as normal/abnormal . NRBC x10^3 (test code See_Comment [Auto mated = 0136430925) message] The system which generated this result transmit britney reference range : 10*3/?L. The reference range was not used to interpret this result as normal/abnormal . SEG % (test code = 83 % 33-76 H 37352-9) BAND % (test code = 4 % 0-1 H 95871-3) LYMPH % (test code = 7 % 14-54 L 05152-3) MONO % (test code = 5 % 0-4 H 01551-8) EOS % (test code = 1 % 0-3 63249-0) ANC (test code = 19.01 10*3/uL 1.88-7.09 H 753-4) TOXIC CHANGES (test Present A code = 803-7) Lab Interpretation Abnormal (test code = 06586-5) [facility] CenterTROPONIN [id number] 00:45:54 Test Item Value Reference Interpretation Comments Range TROPONIN I (test 0.022 ng/mL See_Comment [Automated code = 5780543972) message] The system which generated this result [...] biotin. Lab Interpretation Normal (test code = 29024-5) [facility] [id number] 00:42:51 Test Item Value Reference Range Interpretation Comments NT-proBNP (test code 544 pg/mL See_Comment H [Autom ated = 9262543167) message] The system which generated this result transmitted reference range : <=125. The reference range was not used to interpret this result as normal/abnormal . LUCILLE (test code = LUCILLE) Biotin has been reported to cause a negative bias, interpret results relative to patient's use of biotin. Lab Interpretation Abnormal (test code = 73822-0) [facility] CenterACTIVATED PARTIAL THRMPLAS [id number] 00:36:33 Test Item Value Reference Range Interpretation Comments APTT Patient (test See_Comment L [Automat ed code = 3173-2) message] The system which generated this result transmitted reference range : 23 - 38 Seconds . The reference range was not used to interpr et this result as normal/abnormal . LUCILLE (test code = LUCILLE) The [facility] patient population mean normal value for aPTT is 30 seconds. Lab Interpretation Abnormal (test code = 60326-1) [facility] CenterPROTHROMBIN TIME / [id number] 00:34:31 Test Item Value Reference Range Interpretation Comments PROTIME PATIENT (test See_Comment [Auto mated message] code = 5964-2) The system [employer] generated this result transmitted ref erence range: 12.0 - 1 4.7 Seconds. The re ference range was not u sed to interpret this result as normal/abnor mal. INR (test code = 6301-6) Nor mal INR <1.1; Warfarin Therap eutic range 2.0 to 3. 0 or 2.5 to 3.5, dep ending upon the indica tions. Lab Interpretation (test Normal code = 10201-9) [facility] CenterCOM. METABOLIC PANEL (25309)2021-12-06 00:34:11 Test Item Value Reference Range Interpretation Comments NA (test code = 141 mmol/L 135-145 7529856036) K (test code = 3.9 mmol/L 3.5-5.0 3144671482) CL (test code = 104 mmol/L 98-108 8335660481) CO2 TOTAL (test code = 27 mmol/L 23-31 6309633768) AGAP (test code = 2-16 8398705079) BUN (test code = 24 mg/dL 7-23 H 9259121412) GLUCOSE (test code = 117 mg/dL 70-110 H 0724690340) CREATININE (test code = 0.96 mg/dL 0.50-1.04 6260566972) TOTAL BILI (test code = 0.4 mg/dL 0.1-1.7 7114478229) CALCIUM (test code = 8.9 mg/dL 8.6-10.6 4903253123) T PROTEIN (test code = 6.5 g/dL 6.3-8.2 7868656085) ALBUMIN (test code = 4.0 g/dL 3.5-5.0 1914682494) ALK PHOS (test code = 107 U/L 34-122 5579620643) ALTv (test code = 49 U/L 5-35 H 1742-6) AST(SGOT) (test code = 44 U/L 13-40 H 1823105834) eGFR (test code = mL/min/1.73m2 3111130132) LUCILLE (test code = LUCILLE) Association of [...] tests). Lab Interpretation Abnormal (test code = 05787-2) [facility] CenterPROCALCITONIN2022-04-04 02:29:14 Test Item Value Reference Range Interpretation Comments Procalcitonin (test 0.11 ng/mL <0.08 H code = 3754923303) LUCILLE (test code = LUCILLE) INTERPRETATION OF [...] lung abscess/empyema. For further information please refer to:[email or web address] Lab Interpretation Abnormal (test code = 14000-6) [facility] CenterLactic Acid Whole [id number] 15:26:51 Test Item Value Reference Range Interpretation Comments LACTIC ACID (test code = 2.36 mmol/L 0.50-2.20 H 4104547298) Lab Interpretation (test code = Abnormal 49620-4) [facility] CenterCB with [id number] 09:45:08 Test Item Value Reference Range Interpretation [...] RDW-SD (test code = 48.3 fL 39.0-49.9 47006-7) RDW-CV (test code = 15.2 % 12.0-15.5 788-0) PLT (test code = See_Comment [Automated 777-3) message] The system which generated this result transmit britney reference range : 166 - 358 10*3/ ?L. The reference range was not u sed to interpret th is result as normal/abnormal . MPV (test code = 10.3 fL 9.5-12.9 57213-0) NRBC/100 WBC (test See_Comment [Automat ed code = 4995587348) message] The system which generated this result transmit britney reference range : 0.0 - 10.0 /100 WBCs. The reference range was not used to interpret this result as normal/abnormal . NRBC x10^3 (test code See_Comment [Auto mated = 3969933063) message] The system which generated this result transmit britney reference range : 10*3/?L. The reference range was not used to interpret this result as normal/abnormal . GRAN MAT (NEUT) % 90.3 % (test code = 770-8) IMM GRAN % (test code 1.20 % = 7891834910) LYMPH % (test code = 5.8 % 736-9) MONO % (test code = 2.6 % 5905-5) EOS % (test code = 0.0 % 713-8) BASO % (test code = 0.1 % 706-2) GRAN MAT x10^3(ANC) 19.89 10*3/uL 1.88-7.09 H (test code = 2516579241) IMM GRAN x10^3 (test 0.27 10*3/uL 0.00-0.06 H code = 9175804721) LYMPH x10^3 (test code 1.28 10*3/uL 1.32-3.29 L = 731-0) MONO x10^3 (test code 0.57 10*3/uL 0.33-0.92 = 742-7) EOS x10^3 (test code = <0.03 0.03-0.39 L 711-2) BASO x10^3 (test code 0.03 10*3/uL 0.01-0.07 = 704-7) POLYCHROMASIA (test 2+ See_Comment [Automa britney code = 35409-0) message] The system which generated this result transmit britney reference range : 2+. The referen ce range was not u sed to interpret th is result as normal/abnormal . TOXIC CHANGES (test Present A code = 803-7) Lab Interpretation Abnormal (test code = 43490-9) [facility] Metabolic Panel (NA, K, CL, CO2, GLUCOSE, BUN, CREATININE, CA)2021-12-04 09:38:00 Test Item Value Reference Range Interpretation Comments NA (test code = 137 mmol/L 135-145 0304881087) K (test code = 3.7 mmol/L 3.5-5.0 9741603140) CL (test code = 107 mmol/L 98-108 4821562506) CO2 TOTAL (test code = 21 mmol/L 23-31 L 8180375721) AGAP (test code = 2-16 4988575016) BUN (test code = 19 mg/dL 7-23 8803452841) GLUCOSE (test code = 149 mg/dL 70-110 H 0552156368) CREATININE (test code = 1.00 mg/dL 0.50-1.04 2150274889) CALCIUM (test code = 8.8 mg/dL 8.6-10.6 6211011116) eGFR (test code = mL/min/1.73m2 0911342541) LUCILLE (test code = LUCILLE) Association of [...] tests). Lab Interpretation Abnormal (test code = 46077-7) [facility] CenterLactic Acid Whole [id number] 09:20:11 Test Item Value Reference Range Interpretation Comments LACTIC ACID (test code = 3.77 mmol/L 0.50-2.20 H 2531891282) Lab Interpretation (test code = Abnormal 94135-6) [facility] CenterURINALYSIS2022-04-02 23:35:41 Test Item Value Reference Range Interpretation Comments APPEARANCE (test code = Clear Clear 2420356838) COLOR (test code = Yellow Yellow 8615605100) PH (test code = 4.8-8.0 2512589071) SP GRAVITY (test code = 1.003-1.030 8812263418) GLU U QUAL (test code = Normal Normal 5831252024) BLOOD (test code = Negative Negative Interfere nce from 3003001447) ascorbic acid m ay cause false neg ative results. KETONES (test code = Negative Negative 8715143399) PROTEIN (test code = Negative Negative 2887-8) UROBILIN (test code = Normal Normal 8186989599) BILIRUBIN (test code = Negative Negative 8354475569) NITRITE (test code = Negative Negative 6132687315) [place] (test code = Negative Negative 3737152051) RBC/HPF (test code = See_Comment [Autom ated message] 6524812248) The system [employer] generated this result transmitted ref erence range: 0 - 3 HP F. The reference range was not used to int erpret this result as normal/abnormal . WBC/HPF (test code = See_Comment [Autom ated message] 1438562864) The system [employer] generated this result transmitted ref erence range: 0 - 5 HP F. The reference range was not used to int erpret this result as normal/abnormal . BACTERIA (test code = Negative Negative 6177052162) SQ EPITH (test code = See_Comment H [Auto mated message] 1050255549) The system [employer] generated this result transmitted ref erence range: <=2 HPF. The reference range was not used to int erpret this result as normal/abnormal . Lab Interpretation (test Abnormal code = 08558-9) [facility] WITH [id number] 21:54:52 Test Item Value Reference Range Interpretation [...] RDW-SD (test code = 48.1 fL 39.0-49.9 62176-0) RDW-CV (test code = 15.3 % 12.0-15.5 788-0) PLT (test code = See_Comment [Automated 777-3) message] The system which generated this result transmit britney reference range : 166 - 358 10*3/ ?L. The reference range was not u sed to interpret th is result as normal/abnormal . MPV (test code = 10.1 fL 9.5-12.9 31688-0) NRBC/100 WBC (test See_Comment [Automat ed code = 3668776245) message] The system which generated this result transmit britney reference range : 0.0 - 10.0 /100 WBCs. The reference range was not used to interpret this result as normal/abnormal . NRBC x10^3 (test code See_Comment [Auto mated = 0672799080) message] The system which generated this result transmit britney reference range : 10*3/?L. The reference range was not used to interpret this result as normal/abnormal . GRAN MAT (NEUT) % 90.9 % (test code = 770-8) IMM GRAN % (test code 0.80 % = 8500190895) LYMPH % (test code = 6.4 % 736-9) MONO % (test code = 1.8 % 5905-5) EOS % (test code = 0.0 % 713-8) BASO % (test code = 0.1 % 706-2) GRAN MAT x10^3(ANC) 17.07 10*3/uL 1.88-7.09 H (test code = 7100822805) IMM GRAN x10^3 (test 0.15 10*3/uL 0.00-0.06 H code = 7161144696) LYMPH x10^3 (test code 1.20 10*3/uL 1.32-3.29 L = 731-0) MONO x10^3 (test code 0.34 10*3/uL 0.33-0.92 = 742-7) EOS x10^3 (test code = <0.03 0.03-0.39 L 711-2) BASO x10^3 (test code <0.03 0.01-0.07 = 704-7) TOXIC CHANGES (test Present A code = 803-7) Lab Interpretation Abnormal (test code = 56648-8) [facility]AL [id number] 21:47:46 Test Item Value Reference Range Interpretation Comments NT-proBNP (test code 662 pg/mL See_Comment H [Autom ated = 5755119905) message] The system which generated this result transmitted reference range : <=125. The reference range was not used to interpret this result as normal/abnormal . LUCILLE (test code = LUCILLE) Biotin has been reported to cause a negative bias, interpret results relative to patient's use of biotin. Lab Interpretation Abnormal (test code = 83476-0) [facility] CenterTROPONIN [id number] 21:47:46 Test Item Value Reference Interpretation Comments Range TROPONIN I (test 0.007 ng/mL See_Comment [Automated code = 0686734983) message] The system which generated this result [...] biotin. Lab Interpretation Normal (test code = 76131-5) [facility] CenterAMYLASE2022-04-02 21:36:08 Test Item Value Reference Range Interpretation Comments KIERA (test code = 2695152454) 66 U/L 35-110 Lab Interpretation (test code = Normal 86923-2) [facility] CenterLIPASE2022-04-02 21:36:08 Test Item Value Reference Range Interpretation Comments LIPASE (test code = 7223774605) 83 U/L 0-220 Lab Interpretation (test code = Normal 44449-0) [facility] CenterCOMP. METABOLIC PANEL (46723)2021-12-03 21:36:08 Test Item Value Reference Range Interpretation Comments NA (test code = 137 mmol/L 135-145 6503316826) K (test code = 4.5 mmol/L 3.5-5.0 1149692215) CL (test code = 107 mmol/L 98-108 4236039342) CO2 TOTAL (test code = 20 mmol/L 23-31 L 1235024562) AGAP (test code = 2-16 9256922193) BUN (test code = 20 mg/dL 7-23 4404378811) GLUCOSE (test code = 140 mg/dL 70-110 H 1918137938) CREATININE (test code = 0.97 mg/dL 0.50-1.04 3212820086) TOTAL BILI (test code = 0.3 mg/dL 0.1-1.9 8841061785) CALCIUM (test code = 8.9 mg/dL 8.6-10.6 8303032379) T PROTEIN (test code = 7.1 g/dL 6.3-8.2 9618958158) ALBUMIN (test code = 4.3 g/dL 3.5-5.0 4071343253) ALK PHOS (test code = 97 U/L 34-122 3040293001) ALTv (test code = 56 U/L 5-35 H 1742-6) AST(SGOT) (test code = 38 U/L 13-40 3558573197) eGFR (test code = mL/min/1.73m2 3616503378) LUCILLE (test code = LUCILLE) Association of [...] tests). Lab Interpretation Abnormal (test code = 56351-7) [facility] CenterAC ABG + LACTIC [id number] 21:21:29 Test Item Value Reference Range Interpretation Comments PH (test code = 2) 7.35-7.45 PCO2 (test code = See_Comment L [Automate d 8684319925) message] The sy stem which generated this result transmitted reference range : 35 - 45 mmHg. The reference range was not used to interpret this result as normal/abnormal . PO2 (test code = See_Comment [Automated 1919374417) message] The sy stem which generated this result transmitted reference range : 80 - 100 mmHg. The reference range was not used to interpret this result as normal/abnormal . HCO3 (test code = See_Comment [Automate d 6457817076) message] The sy stem which generated this result transmitted reference range : 22 - 26 mEq/L. The reference range was not used to interpret this result as normal/abnormal . BE (test code = See_Comment [Automated 5177389335) message] The sy stem which generated this result transmitted reference range : -3.0 - 3.0 mEq/ L. The reference r nicholas was not used to interpret this result as normal/abnormal . LACTIC ACID (test code 2.96 mmol/L 0.50-2.20 H = 5399179892) Lab Interpretation Abnormal (test code = 10766-1) [facility] Metabolic Panel (NA, K, CL, CO2, GLUCOSE, BUN, CREATININE, CA)2021-11-10 09:40:55 Test Item Value Reference Range Interpretation Comments NA (test code = 138 mmol/L 135-145 8630187840) K (test code = 3.4 mmol/L 3.5-5.0 L 9614128926) CL (test code = 107 mmol/L 98-108 0436219900) CO2 TOTAL (test code = 25 mmol/L 23-31 9444091708) AGAP (test code = 2-16 3728019342) BUN (test code = 15 mg/dL 7-23 8683576503) GLUCOSE (test code = 110 mg/dL 70-110 7426794919) CREATININE (test code = 0.81 mg/dL 0.50-1.04 0413715938) CALCIUM (test code = 7.8 mg/dL 8.6-10.6 L 8449915350) eGFR (test code = mL/min/1.73m2 2857732987) LUCILLE (test code = LUCILLE) Association of [...] tests). Lab Interpretation Abnormal (test code = 76637-1) [facility] with Wwzisaydhotx7712-92-86 09:25:30 Test Item Value Reference Range Interpretation Comments WBC (test code = See_Comment H [Automated 3890-2) message] The sy stem which generated this [...] (test code = 57.2 fL 39.0-49.9 H 08956-8) RDW-CV (test code = 17.0 % 12.0-15.5 H 788-0) PLT (test code = See_Comment [Automated 777-3) message] The sy stem which generated this result transmitted reference range : 166 - 358 10*3/ ?L. The reference r nicholas was not used to interpret this result as normal/abnormal . MPV (test code = 9.2 fL 9.5-12.9 L 00190-4) NRBC/100 WBC (test See_Comment [Automat ed code = 5303627287) message] The system which generated this result transmitted reference range : 0.0 - 10.0 /100 WBCs. The refer ence range was not u sed to interpret th is result as normal/abnormal . NRBC x10^3 (test code See_Comment [Auto mated = 7513667633) message] The s ystem which generated this result transmitted reference range : 10*3/?L. The reference range was not used to interpret this result as normal/abnormal . GRAN MAT (NEUT) % 72.2 % (test code = 770-8) IMM GRAN % (test code 1.30 % = 0365727623) LYMPH % (test code = 18.9 % 736-9) MONO % (test code = 6.3 % 5905-5) EOS % (test code = 1.2 % 713-8) BASO % (test code = 0.1 % 706-2) GRAN MAT x10^3(ANC) 8.06 10*3/uL 1.88-7.09 H (test code = 2358933495) IMM GRAN x10^3 (test 0.14 10*3/uL 0.00-0.06 H code = 5007096868) LYMPH x10^3 (test code 2.10 10*3/uL 1.32-3.29 = 731-0) MONO x10^3 (test code 0.70 10*3/uL 0.33-0.92 = 742-7) EOS x10^3 (test code = 0.13 10*3/uL 0.03-0.39 711-2) BASO x10^3 (test code <0.03 0.01-0.07 = 704-7) Lab Interpretation Abnormal (test code = 14327-0) [facility] CenterL[facility] Acid Whole Mcvwp4716-57-80 09:22:39 Test Item Value Reference Range Interpretation Comments LACTIC ACID (test code = 3.32 mmol/L 0.50-2.20 H 9999951672) Lab Interpretation (test code = Abnormal 15380-5) [facility] CenterACTIVATED PARTIAL THRMPLAS [id number] 02:13:42 Test Item Value Reference Range Interpretation Comments APTT Patient (test code See_Comment L [Au tomated message] = 3173-2) The system [employer] generated this result transmitted ref erence range: 26 - 36 Seconds. The reference range was not used to int erpret this result as normal/abnormal . Lab Interpretation (test Abnormal code = 71227-2) [facility] CenterPROTHROMBIN TIME / [id number] 02:13:42 Test Item Value Reference Range Interpretation Comments PROTIME PATIENT (test See_Comment [Auto mated message] code = 5964-2) The system [employer] generated this result transmitted ref erence range: 10.1 - 1 2.6 Seconds. The re ference range was not u sed to interpret this result as normal/abnor mal. INR (test code = 6301-6) Nor mal INR <1.1; Warfarin Therap eutic range 2.0 to 3. 0 or 2.5 to 3.5, dep ending upon the indica tions. Lab Interpretation (test Normal code = 76820-0) [facility] CenterD-XKPIX4750-40-69 02:13:42 Test Item Value Reference Interpretation Comments Range D-DIMER (test code = See_Comment H [Autom ated 3625451870) message] The system which generated this result [...] diagnosis. Lab Interpretation Abnormal (test code = 48784-6) [facility]. METABOLIC PANEL (19696)2021-11-10 01:57:17 Test Item Value Reference Range Interpretation Comments NA (test code = 139 mmol/L 135-145 3959393481) K (test code = 3.9 mmol/L 3.5-5.0 5561030174) CL (test code = 106 mmol/L 98-108 6607303262) CO2 TOTAL (test code = 27 mmol/L 23-31 8555183190) AGAP (test code = 2-16 6953366057) BUN (test code = 17 mg/dL 7-23 3452460557) GLUCOSE (test code = 135 mg/dL 70-110 H 3969902712) CREATININE (test code = 0.72 mg/dL 0.50-1.04 7315086779) TOTAL BILI (test code = 0.3 mg/dL 0.1-1.0 0828235015) CALCIUM (test code = 8.1 mg/dL 8.6-10.6 L 7955574667) T PROTEIN (test code = 5.6 g/dL 6.3-8.2 L 2966057867) ALBUMIN (test code = 3.3 g/dL 3.5-5.0 L 4311887657) ALK PHOS (test code = 126 U/L 34-122 H 1267868066) ALTv (test code = 47 U/L 5-35 H 1742-6) AST(SGOT) (test code = 27 U/L 13-40 8959969580) eGFR (test code = mL/min/1.73m2 8804163634) LUCILLE (test code = LUCILLE) Association of [...] tests). Lab Interpretation Abnormal (test code = 02393-8) [facility] CenterAC [facility] + LACTIC [id number] 01:51:44 Test Item Value Reference Range Interpretation Comments PH (test code = 2) 7.35-7.45 PCO2 (test code = See_Comment [Automate d 7274528070) message] The sy stem which generated this result transmitted reference range : 35 - 45 mmHg. The reference range was not used to interpret this result as normal/abnormal . PO2 (test code = See_Comment L [Automated 4604852200) message] The sy stem which generated this result transmitted reference range : 80 - 100 mmHg. The reference range was not used to interpret this result as normal/abnormal . HCO3 (test code = See_Comment [Automate d 0394358760) message] The sy stem which generated this result transmitted reference range : 22 - 26 mEq/L. The reference range was not used to interpret this result as normal/abnormal . BE (test code = See_Comment [Automated 4393289338) message] The sy stem which generated this result transmitted reference range : -3.0 - 3.0 mEq/ L. The reference r nicholas was not used to interpret this result as normal/abnormal . LACTIC ACID (test code 4.25 mmol/L 0.50-2.20 H QUES = [id number]) Lab Interpretation Abnormal (test code = 51355-2) [facility] WITH [id number] 01:50:58 Test Item Value Reference Range Interpretation [...] (test code = 55.7 fL 39.0-49.9 H 72650-0) RDW-CV (test code = 16.8 % 12.0-15.5 H 788-0) PLT (test code = See_Comment [Automated 777-3) message] The system which generated this result transmit britney reference range : 166 - 358 10*3/ ?L. The reference range was not u sed to interpret th is result as normal/abnormal . MPV (test code = 9.5 fL 9.5-12.9 44572-7) NRBC/100 WBC (test See_Comment [Automat ed code = 8833886783) message] The system which generated this result transmit britney reference range : 0.0 - 10.0 /100 WBCs. The reference range was not used to interpret this result as normal/abnormal . NRBC x10^3 (test code <0.01 See_Comment [Auto mated = 8931500939) message] The system which generated this result transmit britney reference range : 10*3/?L. The reference range was not used to interpret this result as normal/abnormal . GRAN MAT (NEUT) % 84.7 % (test code = 770-8) IMM GRAN % (test code 0.80 % = 8959862787) LYMPH % (test code = 10.9 % 736-9) MONO % (test code = 3.4 % 5905-5) EOS % (test code = 0.1 % 713-8) BASO % (test code = 0.1 % 706-2) GRAN MAT x10^3(ANC) 11.84 10*3/uL 1.88-7.09 H (test code = 0870967177) IMM GRAN x10^3 (test 0.11 10*3/uL 0.00-0.06 H code = 2848825295) LYMPH x10^3 (test code 1.52 10*3/uL 1.32-3.29 = 731-0) MONO x10^3 (test code 0.47 10*3/uL 0.33-0.92 = 742-7) EOS x10^3 (test code = <0.03 0.03-0.39 L 711-2) BASO x10^3 (test code <0.03 0.01-0.07 = 704-7) Lab Interpretation Abnormal (test code = 00294-0) [facility] [id number] 21:38:57 Test Item Value Reference Range Interpretation Comments Case Report (test Non-Gynecologic Cytology code = 0501485788) ?Case: [id number] ?Authorizing Provider: ?Anaya Kline MD ? ? Collected: ? 10/21/2021 1249 ?Ordering Location: ? ? [facility] ?Received: ?10/21/2021 1257 ? Medicine/Surgery CLC 7B ?Pathologist: ? Glenna Alejandra, ? Specimen: ? ?LUNG, LEFT UPPER LOBE, BRONCHOALVEOLAR LAVAGE ? Final Diagnosis (test b3xnpFElFLOvk8jcJTUbmBFc code = 9669759239) ZzEwMzNcZnRuYmpcdWMxIHtc cnRmMVxlcGljOTYwMVxhbnNp RAXweTQrZ8WkwwmoBPtkBD0e BC9kyYhajFZwbSJuBOHwNkUo i3hpk452kXVne6fiWSNMhxfx lAi1tGodQ09tx4F6LwafH8nf ZWQwXGdyZWVuMFxibHVlMDt9 XHBhcGVydzEyMjQwXHBhcGVy mOO3ZKLoKR7nqukoWPffUTir WFAhvjE8RAZylUBwB2XtAFQw UA0yywznSDK3KWmqTCVqBYN6 UqXmTPYwp4Jooqk6ExEuhOVx ZFxwbGFpblxmczIwXHBhclxi IEExLiAgTFVORywgTEVGVCBV BSGTLmLEZ8DLGgDFJa2PX3qT XGcCXQ5CLAXuVTZONRxYSeqd YDNzYqRtQAMjYygkKhTyLr2b SOSYGAvCOD0VLNEVBInHIQgO GD9TXTUIBYLnPGncVANjO9UX PAMPWM9GDvLhNVSnpyacSrTq iCEeiYcdkzMbHLgxr9SqW3Rf MjAwMFxhbnNpXGRlZmxhbmcx ORWnJIJ0agJmJDKcUQmeJNWu XJhuHh6faPFlsYtfCkVgTMJs f5dtgwSEBXsvDaUcS183WMJh IWqwd7dph9ZuBRPxvNNjh0E4 MXRPvuexzEs8f9tiFfSzNzZ4 dPBsFCscY4hlqaFrhZZkE4Zd pJGjjFf3uYwkI06zh6Z2Icid O1kmIESrYANiB0YwXR3pKHCu Kjn5HRX8NUU9BPQnYIWsW4Ri WS7nJROaqLYzUDu8m5vpwJlj YGNxOVQ8c1wwEOqrglV5DX0u tr1ugHg4e5xlfiHvWJSdEQVx tWDXBRYuP2NobVvgXs0utEl5 rCbzFyyqKDC9Aji7WE7rnz43 qkh5cFveMVBskthtLqC6FNcu FNHfomqkOWv4XTsaFQPclSV0 RAUmiUOlD1JfNSSbVL6sxoi0 ESO0BCynOPLnCoB7CEYyxJJa UGWclPwfCEswz758CVD0ZiQr KG1aE8Fka9P2lU1spXTaQNAu mDJjIkFoAGVgke8svMCwBLcv g9TaGOV9hyD6ySEkqYViHLHh BS02Ulbvb2UlUszoLKD2NNTw qdGxm2Elh7tmFvSgscRiU2fi Q5YlIQLrTZKuCAPyBzMmraYx y8Nyj1VgrCObuPt9e5bgFTGq IQYzdPmxt2qsJUW4KYPoH1R0 oFIzh6pjOSesLXGjbIK1noW3 LGMuuXLkR3JivZ3aKHCuJA9m erl3t9glCUK2EZftCTByDhU0 wfL2EHKsoJLuGHCucVbeMEjq n238PRC3ZfLxVSKpg6AdA3Zb eBmiV15waKwaH07aZHLviWfs pG7kmEvoaQ5uNfBtDfZpMMgw bFxwbGFpblxmMVxmczIwXGxh adpvFZEtIYtyQ5exXnIbHWSq gQbpAOoob1NhGSDrXFQhGzwf czIwXHBhciBJIGhhdmUgcGVy h08xFFsmyJHlMQEkCHkvSZRj bXyab4DuA3nnTJ1pZ4RfjAWu iyQbkqNvEZtsKJHdv3b1vDNb rBoih9YipVXnER43vvDmMCMp JEF9EZIse4vzSB18hmxvSrLm wM78ghMgowOcWLGbg1paQ3lq aELzu6Qsc5BkepOeAUroj3Om HE7tmXMkaoazjMI8HJGuhRJy qaQyxtA1mEmlRPOeuT7hkS9q aIokhT1wDdQyJaPfYNfqKO2a CNBgN1iirXFxAAPoOIAhD6mn LpIbbY2ydQhbPqgrayV5HCOu cn19 Final Diagnosis d7hvoIGjVLCrgXN9WiZaALZm Comment (test code = b6tuo8YcqTZdiXSgOImcoLHy 0977021252) ndGavc83eIQ4vD08LZ7jOJNs JkB4FFCyfzG9Ksd8PKMjYIWe xOJuW972s2fdj0vgzzTwpKY7 OAXaGCZxG3LjGM2eLZXlwPIw O61jwYNoFYO4HKHrBKFezUIl WJPvHFM1IRNcoETaC9ttQAWx DG0cgpbzFYjpAVcgTYVbtEI2 JEFzvCIzL3UhFOKlSDrlYQHn uek2FaQlMr9juNCpoGalFHui VLRwLWPvEMhuXJHeIpPtU47h CRPkKBByn0tonE0jmZr7WWUb y26spN7tXOTdkPxaaXkouFDt ORdcspWfjcVxZsB1JBHbfiJe lZKrJX2yK5DmjSucG3FpTrHO THBoYKbhy8SwRI1tZKK9yWDj YtJwfgV3hB8zqRNmcxNxTOLl ZmYqG0BoCV7jNM7pzTierjXr dCBjZWxscyBpZGVudGlmaWVk JmspGKZxZ3HtNSGdkz1= Clinical Information 1. Pneumonia / covid / (test code = SARS [id number]) Gross Description a4iopHPzQJWvgVB7ZyIbSUWj (test code = o0jrd6QbiIZvhZPzLDnabXCy 8318681906) iuNwvl80aVU9sT39AR6wPDOc BoZ1YOOqxqJ3Aao1CRNjYGSg gJYpR169g8pmn5movmKtfZT4 PLMpVPCgS2ByNW3fBSJozCKl A62giYAvMFL6GUCeCZNekXBx RGRxALK9MJSskFWaK2tgWHPt SA9taoyiQItkGJlsNQNgsFW0 GKHsvZQtC8SqQNZcAPhkXWQy kip5LtAsGu9qdKXpoNfrITik HUMkk0llBFQihUFzTBT9FFqn fPEbCGRgQXHpQJa9UIPgJMnm uVEpYX6ayRaqBnqcpKolf8Zq dCBcXGlkIDUxMDAyIFxcZGIg N3ZKGDOsEkUaCst0UNLlZNx7 ETo2KS0WEgVhKINgMzt4AHDk XfIoNKg9NDsfVN0GGXR4JdH4 UAZrRxoaQMVxAsEjNBc4BMVf XFxmbCBcXGYgQXJpYWwgXFxm zbHhDOQeVG5saAvosQJpywgr czIwXHBhclxmczIyXHBhciBB ES9qLWcRIqttCRxKFvJqTGJH UJMmNZ5ZRErpNlNRBmJZI2KD VkVPTEFSIExBVkFHRVxwYXJc NtEmARqcVxVhDbKbIJu4MQFd JwMin5ocoSAcO2JxztMoLTQi vTLlVCN1XJYtV0Xdv6GtB7ei KIAnBsh8kPNwhfTnCVd4LZBs ClLlg6cvoYIuKTKvSPPsnfDr ZKPyg0nzOMPtAHpFsGWmm4Zj zzQoseLeGKFafEwweiD0XUQf Oi8fRE4fe8DxsRPaxaDjDOZF EYQhrctlp4ili9Dlq5YvwK4y ZClcZnMyMlxjZjAgIHtcZXBp A7VeD8LnikD9y5jsvIpvw8Ca vYYwGP8wcPVwoR== Disclaimer (test code e2kkwSTsHWHqh2nhMAMwgMRe = [id number]) ZzEwMzNcZnRuYmpcdWMxIHtc ayHmIAmjz5SfO3DxXuQmLXen bnNpXGRlZmxhbmcxMDMzXGZ0 odNfJBGcUGyjUMVsROyhSj8k bYHplSmqEbEhNFSct9whjaAM WQtrLrFvI466QJYtTEwel0pl o2BrFSBzfFQjx4T7CUYAiuqc mGu3iXjuP48zo5P6BovwP9br QCTsRZUlL9JlKF7kWDTyKbu8 TTG1JVG6CSEoQFTgF1OwFA4b HUGejELqMPq1n7pfiCjoLRCx HZC2h2buRXxlfjYcKT0buz4s eUr1q4ckamJwHRDwOTVtvBYH CCYbC3EgiRgqEn1zgYk8fWik XhelQLJ7Iwu6SE3ayt01mde8 gKmoLGGylwwlFyK9JDlgESVd bgcdTRg8XWplGUEhuZV5TBRj mQLuK3SbQHPiST4lsez0NED9 PImsASDkJnY2JQQtbDXcNUQy xTkoRJkbu234YSN3IvPfTN8e X9Jej0B1aM3vrBMoEFTslCHj UzMhBKXblv4vfNQmEWcva4Kt KMM6mvZ7fKDwbREhHXXkCW12 Kbqec7BtFxkfi2PxB83wrNF0 QTzqx4lgWM6qJxP4uwTlNFge i0msgN9lAjW6SQobOH1oHT6x MOEqpB2mdmtdRNZoZeEcmegl DBYdbTzyapWbXy5xqYcwVMP2 MGliP1mfrP5qHrT1WBkhV9oj tY5bJGs2BTlunCT4CNCaxM0m DD1rjwnmh7egEXekUZdoOPAe jfS8ytI9AXEdcQDmC9NjpK6l QELmAC1boxzqj7fyUGG0PAch LFUcAGD5MpVuXCXwk5Xtfwy2 JzQau4OzpUCgOZhbW82mv908 XLKkigVzW8mktCWclbyfiYCz cewcJZgfrpR2UVUerzCme7Td AAVxGIT4RRyfFWjrqECsDVVu qJuva0nzR4XcqURqAZJbTRzu XGYxXGZzMjBcbGFuZzEwMzNc aGljaFxmMVxkYmNoXGYxXGxv L5yvTnIlD1RzNOOlXyCbiJUn O2xuVTjkifAfLNAlfsSszVS6 AOxmC4o7ELWgpmFezIz0xlNw UnLlTNCfLMM0GAowbAHcCPYe h9EtkrvhwFGoZq8lbHPkCHTk dV4mQFWhFVJlRUfqDR7urAo6 PRMRmNUvlCGtEnQFFWLhPS94 xhRuLCYYomtne9I7QUiqMGVk p7WunDGgE3aeg4ZjHYFqe91p SL3kw1X7u3nkGYM9VM9qz1Vb MCYayFOwvSBzYQKxg1Uwoqiq w0LoNQMrdiTqu3ObFJYdaaUg uDUrMTLqgjKxkj6esmPgZBVp LAUhW0VkqujutEykplIdRCZr px7xzcBgOQV7GYKZWYNzSAGm j7SdeD3bfGPSAYG6qZAkcy0o geNVuLFrTCGfpx94IMIdUV1b X1mdUWTgXYHbbdPqdBXws1Rd MNZibBO1oNMbID6XHoFAm44b IGFuZCBEcnVnIEFkbWluaXN0 kzD1cC3nYZvOPFPkGuz+IFRo VQFVQDIvSY6cluXgb6MmxsDp pGnyQENilWPnh3MuhIKcs1Zw pAqwc6BdvVVxoQPdJB0wYGLq clxwYXIgVVRNQiBMYWJvcmF0 s2NmLFJfZAPwMSK2uNyfipg6 FFFjwB3nTLItM3vwowumTKpq LLQhg7RvpT5lbQKJeQRfi1Wg tFYmoRSTbMOwSB2uwzPpQPmC RWgUPZT0jyDgFIExm4YzOBuc K8olW40boFrdvMf9pHF2NHC3 hZ0yFhs+IFxwYXJccGFyIEFw yAUjdMYkOBDhgAkiyeNkZ4In pkFdxW9uwJXqunRdEG7nAU7g S7H0uUQhAQPgwwXri4nbNZvk dmUgYmVlbiByZXZpZXdlZCBm r7AxWMhjCCK5VUldpeVgjzHo dWRpbmcgSCZFLCBTcGVjaWFs TCJ6AJlmepUbbzOmXT6uwH8e jFlbvX3hmRCubUN6waqxELFz VEYxxQwdGNZzAD3chMPmDRKp shCSvRlgjOMqwH6eA4WzSYQq SLAuuu8eYFLviI6dXHkoi7Kk wbkuXCAsZZFgTRSpqgGozp0y SNNlxGMNOO0FZAhcsPPad0Na ofXtG3kSVRB0JAAwRaJbFwjl RHConIFvsWBaBFQhrm50ZZKu qR2pqKqhYBIbaR0gkY5iyOrp cO6hRlRuGrUjQDbxLD9zJBZi W9wzsSXiMMOdCIYaF6roYkWz rB3qwYtcQCnsGqXzTgHzWYyh YXJ9fQ== Embedded Images (test code = 9296996016) [facility] [id number] 20:07:20 Test Item Value Reference Range Interpretation Comments SHIRA (test code = Negative Negative 3682732407) LUCILLE (test code = LUCILLE) Negative - [...] separately. Lab Interpretation (test Normal code = 94793-7) [facility] (NA, K, CL, CO2, GLUCOSE, BUN, CREATININE, CA)2021-10-24 13:05:02 Test Item Value Reference Range Interpretation Comments NA (test code = 134 mmol/L 135-145 L 5973195387) K (test code = 4.5 mmol/L 3.5-5.0 3246500895) CL (test code = 99 mmol/L 98-108 6580895528) CO2 TOTAL (test code = 30 mmol/L 23-31 7946352605) AGAP (test code = 2-16 9171906335) BUN (test code = 23 mg/dL 7-23 2043801135) GLUCOSE (test code = 118 mg/dL 70-110 H 7442082422) CREATININE (test code = 0.71 mg/dL 0.50-1.04 8970757452) CALCIUM (test code = 8.2 mg/dL 8.6-10.6 L 2199867625) eGFR (test code = mL/min/1.73m2 4352842245) LUCILLE (test code = LUCILLE) Association of [...] tests). Lab Interpretation Abnormal (test code = 90349-4) [facility] METABOLIC PANEL (NA, K, CL, CO2, GLUCOSE, BUN, CREATININE, CA)2021-10-24 13:05:02 Test Item Value Reference Range Interpretation Comments NA (test code = 134 mmol/L 135-145 L 5665828226) K (test code = 4.5 mmol/L 3.5-5.0 0327104170) CL (test code = 99 mmol/L 98-108 6336110449) CO2 TOTAL (test code = 30 mmol/L 23-31 6897758834) AGAP (test code = 2-16 6969787029) BUN (test code = 23 mg/dL 7-23 1341431816) GLUCOSE (test code = 118 mg/dL 70-110 H 6944273898) CREATININE (test code = 0.71 mg/dL 0.50-1.04 4137312483) CALCIUM (test code = 8.2 mg/dL 8.6-10.6 L 5118287593) eGFR (test code = mL/min/1.73m2 4785528342) LUCILLE (test code = LUCILLE) Association of [...] tests). Lab Interpretation Abnormal (test code = 54541-7) [facility] WITHOUT [id number] 12:51:39 Test Item Value Reference Range Interpretation Comments WBC (test code = 6690-2) See_Comment H [A utomated message] The system [employer] generated this result transmit britney reference range : 4.30 - 11.10 10*3/?L. The reference range was not used to interpret this result as normal/abnormal . RBC (test code = 789-8) See_Comment [Au tomated message] The system [employer] generated this result transmit britney reference range [...] See_Comment H [Au tomated message] The system [employer] generated this result transmit britney reference range : 166 - 358 10*3/?L. The reference range was not used to interpret this result as normal/abnormal . MPV (test code = 10.1 fL 9.5-12.9 60705-9) RDW-CV (test code = 14.2 % 12.0-15.5 788-0) RDW-SD (test code = 43.8 fL 39.0-49.9 67078-9) NRBC x10^3 (test code = See_Comment [Au tomated message] 4988021803) The system [employer] generated this result transmit britney reference range : 10*3/?L. The reference range was not used to interpret this result as normal/abnormal . NRBC/100 WBC (test code See_Comment [Au tomated message] = 3610614940) The system [facility] generated this result transmit britney reference range : 0.0 - 10.0 /100 WBC s. The reference r nicholas was not used to interpret this result as normal/abnormal . IPF % (test code = 5433790667) Lab Interpretation (test Abnormal code = 08008-3) [facility] WITHOUT [id number] 12:51:39 Test Item Value Reference Range Interpretation Comments WBC (test code = 6690-2) See_Comment H [A utomated message] The system [employer] generated this result transmit britney reference range : 4.30 - 11.10 10*3/?L. The reference range was not used to interpret this result as normal/abnormal . RBC (test code = 789-8) See_Comment [Au tomated message] The system [employer] generated this result transmit britney reference range [...] See_Comment H [Au tomated message] The system [employer] generated this result transmit britney reference range : 166 - 358 10*3/?L. The reference range was not used to interpret this result as normal/abnormal . MPV (test code = 10.1 fL 9.5-12.9 30323-9) RDW-CV (test code = 14.2 % 12.0-15.5 788-0) RDW-SD (test code = 43.8 fL 39.0-49.9 55122-5) NRBC x10^3 (test code = See_Comment [Au tomated message] 8398993517) The system [employer] generated this result transmit britney reference range : 10*3/?L. The reference range was not used to interpret this result as normal/abnormal . NRBC/100 WBC (test code See_Comment [Au tomated message] = 9281531908) The system [employer] generated this result transmit britney reference range : 0.0 - 10.0 /100 WBC s. The reference r nicholas was not used to interpret this result as normal/abnormal . IPF % (test code = 6048048110) Lab Interpretation (test Abnormal code = 47496-9) [facility] CenterMYCOBACTERIUM TUBERCULOSIS COMPLEX PCR 2021-10-23 16:23:29 Test Item Value Reference Range Interpretation Comments Mycobacterium Negative Negative tuberculosis DNA (test code = 11721-7) LUCILLE (test code = LUCILLE) Method performance specifications have not been established for specimens other than SPUTUM. Results for other tested specimen types should be interpreted based on clinical context. Lab Interpretation Normal (test code = 02770-6) [facility] CenterMYCOBACTERIUM TUBERCULOSIS COMPLEX PCR 2021-10-23 16:23:29 Test Item Value Reference Range Interpretation Comments Mycobacterium Negative Negative tuberculosis DNA (test code = 22086-5) LUCILLE (test code = LUCILLE) Method performance specifications have not been established for specimens other than SPUTUM. Results for other tested specimen types should be interpreted based on clinical context. Lab Interpretation Normal (test code = 85326-6) [facility] CenterRES[facility]AT[facility] PANEL BY [id number] 20:36:40 Test Item Value Reference Range Interpretation Comments Adenovirus (test code = Negative Negative 87355-5) Coronavirus HKU1 (test Negative Negative code = 57612-7) Coronavirus NL63 (test Negative Negative code = 69108-6) Coronavirus 229E (test Negative Negative code = 32724-8) Coronavirus OC43 (test Negative Negative code = 56525-1) Human Metapneumovirus Negative Negative (test code = 13224-4) Human Negative Negative Rhinovirus/Enterovirus (test code = 18712-8) Influenza A (test code = Negative Negative 29216-5) Influenza B (test code = Negative Negative 41816-7) Parainfluenza Virus 1 Negative Negative (test code = 52935-4) Parainfluenza Virus 2 Negative Negative (test code = 31063-0) Parainfluenza Virus 3 Negative Negative (test code = 61949-1) Parainfluenza Virus 4 Negative Negative (test code = 10244-3) Respiratory Syncytial Negative Negative Virus (test code = 41754-9) Bordetella parapertussis Negative Negative (test code = 78680-4) Bordetella pertussis Negative Negative (test code = 50569-7) Chlamydia pneumoniae Negative Negative (test code = 62306-4) Mycoplasma pneumoniae Negative Negative (test code = 29321-2) LUCILLE (test code = LUCILLE) Negative:A negative result does not rule-out infection. ?This assay does not test for all potential infectious agents. ? Positive:A positive test result does not necessarily indicate the presence of viable organism. ? Lab Interpretation (test Normal code = 97638-7) [facility] CenterRES[facility] PANEL BY [id number] 20:36:40 Test Item Value Reference Range Interpretation Comments Adenovirus (test code = Negative Negative 22417-7) Coronavirus HKU1 (test Negative Negative code = 50853-5) Coronavirus NL63 (test Negative Negative code = 79639-1) Coronavirus 229E (test Negative Negative code = 96955-2) Coronavirus OC43 (test Negative Negative code = 63917-0) Human Metapneumovirus Negative Negative (test code = 56434-9) Human Negative Negative Rhinovirus/Enterovirus (test code = 83932-5) Influenza A (test code = Negative Negative 21598-4) Influenza B (test code = Negative Negative 65025-9) Parainfluenza Virus 1 Negative Negative (test code = 05973-4) Parainfluenza Virus 2 Negative Negative (test code = 00876-9) Parainfluenza Virus 3 Negative Negative (test code = 09747-3) Parainfluenza Virus 4 Negative Negative (test code = 11906-9) Respiratory Syncytial Negative Negative Virus (test code = 29991-6) Bordetella parapertussis Negative Negative (test code = 90152-3) Bordetella pertussis Negative Negative (test code = 31192-4) Chlamydia pneumoniae Negative Negative (test code = 90589-2) Mycoplasma pneumoniae Negative Negative (test code = 98631-6) LUCILLE (test code = LUCILLE) Negative:A negative result does not rule-out infection. ?This assay does not test for all potential infectious agents. ? Positive:A positive test result does not necessarily indicate the presence of viable organism. ? Lab Interpretation (test Normal code = 24114-3) [facility] CenterANTI-NUCLEAR ANTIBODY-PATHOLOGIST [id number] 19:52:54ANA - Pathologist InterpretationANA HEp-2 IIFA Pathologist [...] female gender. Clinical correlation is recommended. ? (https://pubmed.ncbi.nlm.nih.gov/36280707/) ? If the patient's clinical conditi on [...] clinicallyindicated. Juanis Mata MD ?10/22/2021 ?1:52 PM [facility] LABORATORY SERVICESUnRolling Plains Memorial HospitalANTI-NUCLEAR ANTIBODY- PATHOLOGIST [id number] 19:52:54ANA - Pathologist InterpretationANA HEp-2 IIFA Pathologist [...] female gender. Clinical correlation is recommended. ? (https://pubmed.ncbi.nlm.nih.gov/57444067/) ? If the patient's clinical conditi on [...] clinicallyindicated. Juanis Mata MD ?10/22/2021 ?1:52 PM [facility] SERVICESJ[facility] WITH [id number] 11:43:17 Test Item Value Reference Range Interpretation [...] RDW-SD (test code = 46.8 fL 39.0-49.9 79160-8) RDW-CV (test code = 14.6 % 12.0-15.5 788-0) PLT (test code = See_Comment H [Automated 777-3) message] The system which generated this result transmit britney reference range : 166 - 358 10*3/ ?L. The reference range was not u sed to interpret th is result as normal/abnormal . MPV (test code = 10.2 fL 9.5-12.9 03030-7) NRBC/100 WBC (test See_Comment [Automat ed code = 4358005913) message] The system which generated this result transmit britney reference range : 0.0 - 10.0 /100 WBCs. The reference range was not used to interpret this result as normal/abnormal . NRBC x10^3 (test code <0.01 See_Comment [Auto mated = 3141211589) message] The system which generated this result transmit britney reference range : 10*3/?L. The reference range was not used to interpret this result as normal/abnormal . GRAN MAT (NEUT) % 93.6 % (test code = 770-8) IMM GRAN % (test code 2.10 % = 5818015691) LYMPH % (test code = 2.8 % 736-9) MONO % (test code = 1.4 % 5905-5) EOS % (test code = 0.0 % 713-8) BASO % (test code = 0.1 % 706-2) GRAN MAT x10^3(ANC) 17.50 10*3/uL 1.88-7.09 H (test code = 4856747811) IMM GRAN x10^3 (test 0.40 10*3/uL 0.00-0.06 H code = 6734783400) LYMPH x10^3 (test code 0.53 10*3/uL 1.32-3.29 L = 731-0) MONO x10^3 (test code 0.26 10*3/uL 0.33-0.92 L = 742-7) EOS x10^3 (test code = <0.03 0.03-0.39 L 711-2) BASO x10^3 (test code <0.03 0.01-0.07 = 704-7) TOXIC CHANGES (test Present A code = 803-7) Lab Interpretation Abnormal (test code = 82679-3) [facility] WITH [id number] 11:43:17 Test Item Value Reference Range Interpretation Comments WBC (test code = See_Comment H [Automated 0190-2) message] The system which generated this result transmit britney reference range : 4.30 - 11.10 10*3/?L. The reference range was not used to interpret this result as normal/abnormal . RBC (test code = See_Comment [Automated 129-8) message] The system which generated this result [...] RDW-SD (test code = 46.8 fL 39.0-49.9 77895-8) RDW-CV (test code = 14.6 % 12.0-15.5 788-0) PLT (test code = See_Comment H [Automated 777-3) message] The system which generated this result transmit britney reference range : 166 - 358 10*3/ ?L. The reference range was not u sed to interpret th is result as normal/abnormal . MPV (test code = 10.2 fL 9.5-12.9 40146-5) NRBC/100 WBC (test See_Comment [Automat ed code = 0493942143) message] The system which generated this result transmit britney reference range : 0.0 - 10.0 /100 WBCs. The reference range was not used to interpret this result as normal/abnormal . NRBC x10^3 (test code <0.01 See_Comment [Auto mated = [id number]) message] The system which generated this result transmit britney reference range : 10*3/?L. The reference range was not used to interpret this result as normal/abnormal . GRAN MAT (NEUT) % 93.6 % (test code = 770-8) IMM GRAN % (test code 2.10 % = 6886250592) LYMPH % (test code = 2.8 % 736-9) MONO % (test code = 1.4 % 5905-5) EOS % (test code = 0.0 % 713-8) BASO % (test code = 0.1 % 706-2) GRAN MAT x10^3(ANC) 17.50 10*3/uL 1.88-7.09 H (test code = 7386132939) IMM GRAN x10^3 (test 0.40 10*3/uL 0.00-0.06 H code = 9597783986) LYMPH x10^3 (test code 0.53 10*3/uL 1.32-3.29 L = 731-0) MONO x10^3 (test code 0.26 10*3/uL 0.33-0.92 L = 742-7) EOS x10^3 (test code = <0.03 0.03-0.39 L 711-2) BASO x10^3 (test code <0.03 0.01-0.07 = 704-7) TOXIC CHANGES (test Present A code = 803-7) Lab Interpretation Abnormal (test code = 54520-2) [facility] METABOLIC PANEL (NA, K, CL, CO2, GLUCOSE, BUN, CREATININE, CA)2021-10-22 11:20:32 Test Item Value Reference Range Interpretation Comments NA (test code = 136 mmol/L 135-145 6164982228) K (test code = 4.3 mmol/L 3.5-5.0 7532695226) CL (test code = 103 mmol/L 98-108 7703743358) CO2 TOTAL (test code = 26 mmol/L 23-31 5448388771) AGAP (test code = 2-16 8001827959) BUN (test code = 18 mg/dL 7-23 6292077699) GLUCOSE (test code = 185 mg/dL 70-110 H 3857456606) CREATININE (test code = 0.69 mg/dL 0.50-1.04 8806022022) CALCIUM (test code = 7.9 mg/dL 8.6-10.6 L 3389713036) eGFR (test code = mL/min/1.73m2 4343160792) LUCILLE (test code = LUCILLE) Association of [...] tests). Lab Interpretation Abnormal (test code = 95418-0) [facility] Test Item Value Reference Range Interpretation Comments MAGNESIUM (test code = 5274332031) 2.2 mg/dL 1.7-2.4 Lab Interpretation (test code = Normal 04564-8) [facility] METABOLIC PANEL (NA, K, CL, CO2, GLUCOSE, BUN, CREATININE, CA)2021-10-22 11:20:32 Test Item Value Reference Range Interpretation Comments NA (test code = 136 mmol/L 135-145 7196644438) K (test code = 4.3 mmol/L 3.5-5.0 9205135720) CL (test code = 103 mmol/L 98-108 8026090569) CO2 TOTAL (test code = 26 mmol/L 23-31 0827517977) AGAP (test code = 2-16 5208762541) BUN (test code = 18 mg/dL 7-23 9605026144) GLUCOSE (test code = 185 mg/dL 70-110 H 3514682641) CREATININE (test code = 0.69 mg/dL 0.50-1.04 9128719735) CALCIUM (test code = 7.9 mg/dL 8.6-10.6 L 1323783057) eGFR (test code = mL/min/1.73m2 6593134613) LUCILLE (test code = LUCILLE) Association of [...] tests). Lab Interpretation Abnormal (test code = 87664-7) [facility] Test Item Value Reference Range Interpretation Comments MAGNESIUM (test code = 6350016151) 2.2 mg/dL 1.7-2.4 Lab Interpretation (test code = Normal 62220-1) [facility] [id number] 23:01:06 Test Item Value Reference Range Interpretation Comments Blood Culture-Aerobic No organisms No growth Previo us (test code = 46404-6) isolated prelim inary verified result was Culture In Progress on 10/16/2021 at 20 02 CSTPrevious preliminary verified result was No growth a t 24 hours on 10/17/2021 at 17 01 CSTPrevious preliminary verified result was No growth a t 48 hours on 10/18/2021 at 17 01 CSTPrevious preliminary verified result was No growth a t 72 hours on 10/19/2021 at 17 02 [employer] Blood No organisms No growth Previous Culture-Anaerobic isolated preliminar y (test code = 84292-7) verifi ed result was Culture In Progress on 10/16/2021 at 20 02 CSTPrevious preliminary verified result was No growth a t 24 hours on 10/17/2021 at 17 01 CSTPrevious preliminary verified result was No growth a t 48 hours on 10/18/2021 at 17 01 CSTPrevious preliminary verified result was No growth a t 72 hours on 10/19/2021 at 17 02 [employer] Lab Interpretation Normal (test code = 63640-9) [facility] CULTURE [id number] 23:01:06 Test Item Value Reference Range Interpretation Comments Blood Culture-Aerobic No organisms No growth Previo us (test code = 38123-5) isolated prelim inary verified result was Culture In Progress on 10/16/2021 at 20 02 CSTPrevious preliminary verified result was No growth a t 24 hours on 10/17/2021 at 17 01 CSTPrevious preliminary verified result was No growth a t 48 hours on 10/18/2021 at 17 02 CSTPrevious preliminary verified result was No growth a t 72 hours on 10/19/2021 at 17 02 [employer] Blood No organisms No growth Previous Culture-Anaerobic isolated preliminar y (test code = 03348-5) verifi ed result was Culture In Progress on 10/16/2021 at 20 02 CSTPrevious preliminary verified result was No growth a t 24 hours on 10/17/2021 at 17 01 CSTPrevious preliminary verified result was No growth a t 48 hours on 10/18/2021 at 17 02 CSTPrevious preliminary verified result was No growth a t 72 hours on 10/19/2021 at 17 02 [employer] Lab Interpretation Normal (test code = 81460-4) [facility] CULTURE [id number] 23:01:06 Test Item Value Reference Range Interpretation Comments Blood Culture-Aerobic No organisms No growth Previo us (test code = 88728-0) isolated prelim inary verified result was Culture In Progress on 10/16/2021 at 20 02 CSTPrevious preliminary verified result was No growth a t 24 hours on 10/17/2021 at 17 01 CSTPrevious preliminary verified result was No growth a t 48 hours on 10/18/2021 at 17 01 CSTPrevious preliminary verified result was No growth a t 72 hours on 10/19/2021 at 17 02 [employer] Blood No organisms No growth Previous Culture-Anaerobic isolated preliminar y (test code = 54176-2) verifi ed result was Culture In Progress on 10/16/2021 at 20 02 CSTPrevious preliminary verified result was No growth a t 24 hours on 10/17/2021 at 17 01 CSTPrevious preliminary verified result was No growth a t 48 hours on 10/18/2021 at 17 01 CSTPrevious preliminary verified result was No growth a t 72 hours on 10/19/2021 at 17 02 [employer] Lab Interpretation Normal (test code = 24380-8) [facility] [id number] 23:01:06 Test Item Value Reference Range Interpretation Comments Blood Culture-Aerobic No organisms No growth Previo us (test code = 70583-1) isolated prelim inary verified result was Culture In Progress on 10/16/2021 at 20 02 CSTPrevious preliminary verified result was No growth a t 24 hours on 10/17/2021 at 17 01 CSTPrevious preliminary verified result was No growth a t 48 hours on 10/18/2021 at 17 02 CSTPrevious preliminary verified result was No growth a t 72 hours on 10/19/2021 at 17 02 [employer] Blood No organisms No growth Previous Culture-Anaerobic isolated preliminar y (test code = 37029-0) verifi ed result was Culture In Progress on 10/16/2021 at 20 02 CSTPrevious preliminary verified result was No growth a t 24 hours on 10/17/2021 at 17 01 CSTPrevious preliminary verified result was No growth a t 48 hours on 10/18/2021 at 17 02 CSTPrevious preliminary verified result was No growth a t 72 hours on 10/19/2021 at 17 02 [employer] Lab Interpretation Normal (test code = 21685-7) [facility] LACTIC [id number] 20:42:21 Test Item Value Reference Range Interpretation Comments PH (test code = 2) 7.35-7.45 PCO2 (test code = See_Comment [Automat ed 9166194143) message] The sy stem which generated this result transmitted reference range : 35 - 45 mmHg. The reference range was not used to interpret this result as normal/abnormal . PO2 (test code = See_Comment H [Automated 0866152130) message] The sy stem which generated this result transmitted reference range : 80 - 100 mmHg. The reference range was not used to interpret this result as normal/abnormal . HCO3 (test code = See_Comment [Automate d 8742896510) message] The sy stem which generated this result transmitted reference range : 22 - 26 mEq/L. The reference range was not used to interpret this result as normal/abnormal . BE (test code = See_Comment [Automated 3598151120) message] The sy stem which generated this result transmitted reference range : -3.0 - 3.0 mEq/ L. The reference r nicholas was not used to interpret this result as normal/abnormal . THB (test code = 12.1 g/dL 12.0-16.0 2261078615) %O2HB (test code = 99.5 % 94.0-99.0 H 7067396470) %COHB ART (test code = 0.1 % 0.0-1.5 0712611254) %METHB ART (test code = 0.1 % 0.4-1.5 L 7131369922) VOL%O2 ART (test code = 17.8 % 15.0-23.0 0600187893) NA (test code = 135 mmol/L 135-145 5475593244) K+ (test code = 4.3 mmol/L 3.5-5.0 9927155302) AC CA IONZ (test code = 4.50 mg/dL 4.50-5.30 1140643766) GLUCOSE (test code = 108 mg/dL 70-110 4483559070) LACTIC ACID (test code 2.19 mmol/L 0.50-2.20 = 2733928487) Lab Interpretation Abnormal (test code = 72216-6) [facility] LACT[facility] [id number] 20:42:21 Test Item Value Reference Range Interpretation Comments PH (test code = 2) 7.35-7.45 PCO2 (test code = See_Comment [Automate d 7152638399) message] The sy stem which generated this result transmitted reference range : 35 - 45 mmHg. The reference range was not used to interpret this result as normal/abnormal . PO2 (test code = See_Comment H [Automated 5108547295) message] The sy stem which generated this result transmitted reference range : 80 - 100 mmHg. The reference range was not used to interpret this result as normal/abnormal . HCO3 (test code = See_Comment [Automate d 7427537029) message] The sy stem which generated this result transmitted reference range : 22 - 26 mEq/L. The reference range was not used to interpret this result as normal/abnormal . BE (test code = See_Comment [Automated 5387169074) message] The sy stem which generated this result transmitted reference range : -3.0 - 3.0 mEq/ L. The reference r nicholas was not used to interpret this result as normal/abnormal . THB (test code = 12.1 g/dL 12.0-16.0 7537466441) %O2HB (test code = 99.5 % 94.0-99.0 H 9034410309) %COHB ART (test code = 0.1 % 0.0-1.5 7701288833) %METHB ART (test code = 0.1 % 0.4-1.5 L 5763547660) VOL%O2 ART (test code = 17.8 % 15.0-23.0 9250569686) NA (test code = 135 mmol/L 135-145 8222980342) K+ (test code = 4.3 mmol/L 3.5-5.0 0918895625) AC CA IONZ (test code = 4.50 mg/dL 4.50-5.30 8509789109) GLUCOSE (test code = 108 mg/dL 70-110 1145564837) LACTIC ACID (test code 2.19 mmol/L 0.50-2.20 = 3898563209) Lab Interpretation Abnormal (test code = 10369-3) [facility]IOT[facility] CONVERT[facility] [id number] 20:19:53 Test Item Value Reference Range Interpretation Comments MELLY (test code = 28 U/L Performed B y: AR 2742-5) [address] [place] [id number] Director: Korin Barillas MD [facility] CenterANGIOTENSIN CONVERTING [id number] 20:19:53 Test Item Value Reference Range Interpretation Comments MELLY (test code = 28 U/L Performed B y: AR 2742-5) [address] [place] [id number] Director: Korin Barillas MD [facility] CenterBODY FLUID MANUAL [id number] 19:44:45 Test Item Value Reference Range Interpretation Comments BF SEGS% (test code = 78502-9) 2 % BF LYMPHS% (test code = 21871-3) 12 % BF MACROPHAGE% (test code = 71147-4) 86 % BF #CELLS CNTD (test code = 4269813615) cells/uL [facility] FLUID MANUAL [id number] 19:44:45 Test Item Value Reference Range Interpretation Comments BF SEGS% (test code = 01580-3) 2 % BF LYMPHS% (test code = 00608-4) 12 % BF MACROPHAGE% (test code = 75144-2) 86 % BF #CELLS CNTD (test code = 8976633967) cells/uL [facility] FLUID DIRECT [id number] 19:44:30 Test Item Value Reference Range Interpretation Comments BF COLOR Clear (test code = 5311256345) BF WBC Count See_Comment [Automated (test code = message] The sy stem 5667590792) which generated this result transmitted reference range : /?L. The refere nce range was not u sed to interpret th is result as normal/abnormal . BF RBC Count <3000 See_Comment [Automated (test code = message] The sy stem 8318624259) which generated this result transmitted reference range : /?L. The refere nce range was not u sed to interpret th is result as normal/abnormal . LUCILLE (test The reference range code = LUCILLE) and other method performance specifications have not been established for this body fluid. ?The test results must be integrated into the clinical context for interpretation. [facility] FLUID DIRECT [id number] 19:44:30 Test Item Value Reference Range Interpretation Comments BF COLOR Clear (test code = 0731112493) BF WBC Count See_Comment [Automated (test code = message] The sy stem 0260481813) which generated this result transmitted reference range : /?L. The refere nce range was not u sed to interpret th is result as normal/abnormal . BF RBC Count <3000 See_Comment [Automated (test code = message] The sy stem 9863002985) which generated this result transmitted reference range : /?L. The refere nce range was not u sed to interpret th is result as normal/abnormal . LUCILLE (test The reference range code = LUCILLE) and other method performance specifications have not been established for this body fluid. ?The test results must be integrated into the clinical context for interpretation. [facility] WITH [id number] 19:27:30 Test Item Value Reference Range Interpretation [...] RDW-SD (test code = 45.8 fL 39.0-49.9 91438-0) RDW-CV (test code = 14.4 % 12.0-15.5 788-0) PLT (test code = See_Comment H [Automated 777-3) message] The system which generated this result transmit britney reference range : 166 - 358 10*3/ ?L. The reference range was not u sed to interpret th is result as normal/abnormal . MPV (test code = 10.4 fL 9.5-12.9 69454-5) NRBC/100 WBC (test See_Comment [Automat ed code = 5928060268) message] The system which generated this result transmit britney reference range : 0.0 - 10.0 /100 WBCs. The reference range was not used to interpret this result as normal/abnormal . NRBC x10^3 (test code See_Comment [Auto mated = 7205535416) message] The system which generated this result transmit britney reference range : 10*3/?L. The reference range was not used to interpret this result as normal/abnormal . SEG % (test code = 84 % 33-76 H 81266-7) BAND % (test code = 8 % 0-1 H 24608-6) MYELO % (test code = 2 % See_Comment H [Autom ated 80505-8) message] The system which generated this result transmit britney reference range : <=0. The refere nce range was not u sed to interpret th is result as normal/abnormal . LYMPH % (test code = 4 % 14-54 L 59001-2) MONO % (test code = 2 % 0-4 16209-6) ANC (test code = 21.16 10*3/uL 1.88-7.09 H 753-4) Lab Interpretation Abnormal (test code = 65901-2) [facility] WITH [id number] 19:27:30 Test Item Value Reference Range Interpretation [...] RDW-SD (test code = 45.8 fL 39.0-49.9 47600-7) RDW-CV (test code = 14.4 % 12.0-15.5 788-0) PLT (test code = See_Comment H [Automated 777-3) message] The system which generated this result transmit britney reference range : 166 - 358 10*3/ ?L. The reference range was not u sed to interpret th is result as normal/abnormal . MPV (test code = 10.4 fL 9.5-12.9 73071-4) NRBC/100 WBC (test See_Comment [Automat ed code = 8955328971) message] The system which generated this result transmit britney reference range : 0.0 - 10.0 /100 WBCs. The reference range was not used to interpret this result as normal/abnormal . NRBC x10^3 (test code See_Comment [Auto mated = 7431130350) message] The system which generated this result transmit britney reference range : 10*3/?L. The reference range was not used to interpret this result as normal/abnormal . SEG % (test code = 84 % 33-76 H 47835-1) BAND % (test code = 8 % 0-1 H 14684-0) MYELO % (test code = 2 % See_Comment H [Autom ated 24252-2) message] The system which generated this result transmit britney reference range : <=0. The refere nce range was not u sed to interpret th is result as normal/abnormal . LYMPH % (test code = 4 % 14-54 L 44706-5) MONO % (test code = 2 % 0-4 83491-1) ANC (test code = 21.16 10*3/uL 1.88-7.09 H 753-4) Lab Interpretation Abnormal (test code = 68998-0) [facility] METABOLIC PANEL (NA, K, CL, CO2, GLUCOSE, BUN, CREATININE, CA)2021-10-21 19:20:26 Test Item Value Reference Range Interpretation Comments NA (test code = 125 mmol/L 135-145 L 5373224181) K (test code = 4.4 mmol/L 3.5-5.0 Slight 5982565687) hemolysis CL (test code = 98 mmol/L 98-108 2657589422) CO2 TOTAL (test code 19 mmol/L 23-31 L = 5191489801) AGAP (test code = 2-16 3010565167) BUN (test code = 21 mg/dL 7-23 Slight 7741732267) hemolysis GLUCOSE (test code = 155 mg/dL 70-110 H 5460364719) CREATININE (test code 0.63 mg/dL 0.50-1.04 = 6890299361) CALCIUM (test code = 6.9 mg/dL 8.6-10.6 L 0548971727) eGFR (test code = mL/min/1.73m2 6240962512) LUCILLE (test code = LUCILLE) Association of [...] tests). Lab Interpretation Abnormal (test code = 83065-5) [facility] METABOLIC PANEL (NA, K, CL, CO2, GLUCOSE, BUN, CREATININE, CA)2021-10-21 19:20:26 Test Item Value Reference Range Interpretation Comments NA (test code = 125 mmol/L 135-145 L 7563784033) K (test code = 4.4 mmol/L 3.5-5.0 Slight 6107500716) hemolysis CL (test code = 98 mmol/L 98-108 8548198982) CO2 TOTAL (test code 19 mmol/L 23-31 L = 8330660595) AGAP (test code = 2-16 1581434830) BUN (test code = 21 mg/dL 7-23 Slight 4878235066) hemolysis GLUCOSE (test code = 155 mg/dL 70-110 H 9703030699) CREATININE (test code 0.63 mg/dL 0.50-1.04 = 2595679599) CALCIUM (test code = 6.9 mg/dL 8.6-10.6 L 9281923333) eGFR (test code = mL/min/1.73m2 7670135748) LUCILLE (test code = LUCILLE) Association of [...] tests). Lab Interpretation Abnormal (test code = 01532-1) [facility]2022-02-18 19:12:03 Test Item Value Reference Range Interpretation Comments Fibrinogen (test code = 0644963071) 585 mg/dL 167-453 H Lab Interpretation (test code = Abnormal 20283-9) [facility] CenterPROT[facility] / [id number] 19:12:03 Test Item Value Reference Range Interpretation Comments PROTIME PATIENT (test See_Comment H [Auto mated message] code = 5964-2) The system [employer] generated this result transmitted ref erence range: 10.1 - 1 2.6 Seconds. The reference range was not used to int erpret this result as normal/abnormal . INR (test code = 6301-6) Nor mal INR <1.1; Warfarin Therap eutic range 2.0 to 3. 0 or 2.5 to 3.5, dep ending upon the indica tions. Lab Interpretation (test Abnormal code = 26286-5) [facility] 19:12:03 Test Item Value Reference Range Interpretation Comments Fibrinogen (test code = 1930639940) 585 mg/dL 167-453 H Lab Interpretation (test code = Abnormal 00021-6) [facility] CenterPROTHROMBIN [facility] / [id number] 19:12:03 Test Item Value Reference Range Interpretation Comments PROTIME PATIENT (test See_Comment H [Auto mated message] code = 5964-2) The system [employer] generated this result transmitted ref erence range: 10.1 - 1 2.6 Seconds. The reference range was not used to int erpret this result as normal/abnormal . INR (test code = 6301-6) Nor mal INR <1.1; Warfarin Therap eutic range 2.0 to 3. 0 or 2.5 to 3.5, dep ending upon the indica tions. Lab Interpretation (test Abnormal code = 37296-2) [facility] CenterURIC [id number] 04:54:18 Test Item Value Reference Range Interpretation Comments URIC ACID (test code = 2559349650) 4.3 mg/dL 2.9-6.0 Lab Interpretation (test code = Normal 93623-5) [facility] [id number] 04:54:18 Test Item Value Reference Range Interpretation Comments URIC ACID (test code = 2554851078) 4.3 mg/dL 2.9-6.0 Lab Interpretation (test code = Normal 11048-9) [facility] Center[facility]an[facility] ([facility]E)2021-10-20 20:54:06 Test Item Value Reference Range Interpretation Comments EF(Teich) (test code = 63.80 % 3399683911) LVIDD (test code = 4.40 cm 0943691841) LVIDS (test code = 2.90 cm 0274446117) IVS (test code = 0.86 cm 7464882958) LVPWD (test code = 0.86 cm 7279193751) LVOT diameter (test code 2.00 cm = 3907588543) FS (test code = 35 % 0783066729) LA size (test code = 3.4 cm 8385118677) LAV(MOD-sp4) (test code = 41.40 mL 1851242115) Ao root annulus (test 2.44 cm code = 3668145005) Ao root diam (test code = 2.44 cm 1593725897) Aortic root (test code = 2.44 cm 9014513143) PW (test code = 0.86 cm 0.6-1.2 1854748980) EF - 2D (test code = 63.80 % 80599639) Interventricular Septum 0.86 cm Diastolic Thickness by 2D (test code = 4892202) Radiology Study observation (narrative) (test code = 54791-6) LUCILLE (test code = LUCILLE) ?Left?Ventricle: Left ventricle is normal in size and function. Normal wall thickness. Normal systolic function with a visually estimated EF of 55 - 60%. ?Aortic?Valve: Aortic valve is normal in structure and function. ?Mitral?Valve: Mitral valve is normal in structure and function. VitalsHeight Weight BSA (Calculated - sq m) BP Pulse 60 220lb ? ?114/63 81 [facility]2021-10-20 20:54:06 Test Item Value Reference Range Interpretation Comments EF(Teich) (test code = 63.80 % 5638241042) LVIDD (test code = 4.40 cm 5946762031) LVIDS (test code = 2.90 cm 1688010243) IVS (test code = 0.86 cm 7743613712) LVPWD (test code = 0.86 cm 4332995424) LVOT diameter (test code 2.00 cm = 5904372158) FS (test code = 35 % 6606187671) LA size (test code = 3.4 cm 1375749778) LAV(MOD-sp4) (test code = 41.40 mL 5407198010) Ao root annulus (test 2.44 cm code = 5611464979) Ao root diam (test code = 2.44 cm 9756096755) Aortic root (test code = 2.44 cm 6071887917) PW (test code = 0.86 cm 0.6-1.6 5228381595) EF - 2D (test code = 63.80 % 39770385) Interventricular Septum 0.86 cm Diastolic Thickness by 2D (test code = 4148679) Radiology Study observation (narrative) (test code = 02756-2) LUCILLE (test code = LUCILLE) ?Left?Ventricle: Left [...] ?114/63 81 [facility] WITH [id number] 11:09:20 Test Item Value Reference Range Interpretation Comments WBC (test code = See_Comment H [Automated 0693-2) message] The system which generated this result transmit britney reference range : 4.30 - 11.10 10*3/?L. The reference range was not used to interpret this result as normal/abnormal . RBC (test code = See_Comment L [Automated 796-8) message] The system which generated this result [...] RDW-SD (test code = 46.3 fL 39.0-49.9 70113-5) RDW-CV (test code = 14.5 % 12.0-15.5 788-0) PLT (test code = See_Comment [Automated 777-3) message] The system which generated this result transmit britney reference range : 166 - 358 10*3/ ?L. The reference range was not u sed to interpret th is result as normal/abnormal . MPV (test code = 9.9 fL 9.5-12.9 30959-9) NRBC/100 WBC (test See_Comment [Automat ed code = 1124818572) message] The system which generated this result transmit britney reference range : 0.0 - 10.0 /100 WBCs. The reference range was not used to interpret this result as normal/abnormal . NRBC x10^3 (test code <0.01 See_Comment [Auto mated = 1085601244) message] The system which generated this result transmit britney reference range : 10*3/?L. The reference range was not used to interpret this result as normal/abnormal . GRAN MAT (NEUT) % 89.9 % (test code = 770-8) IMM GRAN % (test code 2.90 % = 0988703129) LYMPH % (test code = 4.2 % 736-9) MONO % (test code = 2.9 % 5905-5) EOS % (test code = 0.0 % 713-8) BASO % (test code = 0.1 % 706-2) GRAN MAT x10^3(ANC) 14.51 10*3/uL 1.88-7.09 H (test code = 6575805562) IMM GRAN x10^3 (test 0.46 10*3/uL 0.00-0.06 H code = 7148224533) LYMPH x10^3 (test code 0.67 10*3/uL 1.32-3.29 L = 731-0) MONO x10^3 (test code 0.47 10*3/uL 0.33-0.92 = 742-7) EOS x10^3 (test code = <0.03 0.03-0.39 L 711-2) BASO x10^3 (test code <0.03 0.01-0.07 = 704-7) TOXIC CHANGES (test Present A code = 803-7) Lab Interpretation Abnormal (test code = 30841-1) [facility] WITH [id number] 11:09:20 Test Item Value Reference Range Interpretation [...] RDW-SD (test code = 46.3 fL 39.0-49.9 12058-3) RDW-CV (test code = 14.5 % 12.0-15.5 788-0) PLT (test code = See_Comment [Automated 777-3) message] The system which generated this result transmit britney reference range : 166 - 358 10*3/ ?L. The reference range was not u sed to interpret th is result as normal/abnormal . MPV (test code = 9.9 fL 9.5-12.9 36970-6) NRBC/100 WBC (test See_Comment [Automat ed code = 0332359445) message] The system which generated this result transmit britney reference range : 0.0 - 10.0 /100 WBCs. The reference range was not used to interpret this result as normal/abnormal . NRBC x10^3 (test code <0.01 See_Comment [Auto mated = 5466365213) message] The system which generated this result transmit britney reference range : 10*3/?L. The reference range was not used to interpret this result as normal/abnormal . GRAN MAT (NEUT) % 89.9 % (test code = 770-8) IMM GRAN % (test code 2.90 % = 7362510302) LYMPH % (test code = 4.2 % 736-9) MONO % (test code = 2.9 % 5905-5) EOS % (test code = 0.0 % 713-8) BASO % (test code = 0.1 % 706-2) GRAN MAT x10^3(ANC) 14.51 10*3/uL 1.88-7.09 H (test code = 1056440767) IMM GRAN x10^3 (test 0.46 10*3/uL 0.00-0.06 H code = 0034994131) LYMPH x10^3 (test code 0.67 10*3/uL 1.32-3.29 L = 731-0) MONO x10^3 (test code 0.47 10*3/uL 0.33-0.92 = 742-7) EOS x10^3 (test code = <0.03 0.03-0.39 L 711-2) BASO x10^3 (test code <0.03 0.01-0.07 = 704-7) TOXIC CHANGES (test Present A code = 803-7) Lab Interpretation Abnormal (test code = 64142-4) [facility] METABOLIC PANEL (NA, K, CL, CO2, GLUCOSE, BUN, CREATININE, CA)2021-10-20 10:55:22 Test Item Value Reference Range Interpretation Comments NA (test code = 136 mmol/L 135-145 6630505588) K (test code = 4.1 mmol/L 3.5-5.0 1138470648) CL (test code = 108 mmol/L 98-108 9490113838) CO2 TOTAL (test code = 25 mmol/L 23-31 5588410497) AGAP (test code = 2-16 2993935032) BUN (test code = 23 mg/dL 7-23 6191761938) GLUCOSE (test code = 134 mg/dL 70-110 H 8225914931) CREATININE (test code = 0.67 mg/dL 0.50-1.04 2587080368) CALCIUM (test code = 7.5 mg/dL 8.6-10.6 L 3627215741) eGFR (test code = mL/min/1.73m2 1659023698) LUCILLE (test code = LUCILLE) Association of [...] tests). Lab Interpretation Abnormal (test code = 95681-7) [facility] METABOLIC PANEL (NA, K, CL, CO2, GLUCOSE, BUN, CREATININE, CA)2021-10-20 10:55:22 Test Item Value Reference Range Interpretation Comments NA (test code = 136 mmol/L 135-145 7810701876) K (test code = 4.1 mmol/L 3.5-5.0 1997922723) CL (test code = 108 mmol/L 98-108 7665915737) CO2 TOTAL (test code = 25 mmol/L 23-31 5858526870) AGAP (test code = 2-16 6731863824) BUN (test code = 23 mg/dL 7-23 5772143664) GLUCOSE (test code = 134 mg/dL 70-110 H 7175522954) CREATININE (test code = 0.67 mg/dL 0.50-1.04 6226136405) CALCIUM (test code = 7.5 mg/dL 8.6-10.6 L 0226392616) eGFR (test code = mL/min/1.73m2 9101180249) LUCILLE (test code = LUCILLE) Association of [...] tests). Lab Interpretation Abnormal (test code = 53680-5) [facility] [id number] 21:49:45 Test Item Value Reference Range Interpretation Comments ANTI-DSDNA (test code See_Comment [Auto mated = 6724215592) message] The system which generated this result transmit britney reference range : 0.0 - 4.0 IU/mL . The reference range was not u sed to interpret th is result as normal/abnormal . LUCILLE (test code = LUCILLE) Negative ? ?< or = 4 IU/mLPositive ? ? ?> or = 10 IU/mLIndetermin ate ?5-9 IU/mL Lab Interpretation Normal (test code = 17630-0) [facility] [id number] 21:49:45 Test Item Value Reference Range Interpretation Comments ANTI-DSDNA (test code See_Comment [Auto mated = 8025083863) message] The system which generated this result transmit britney reference range : 0.0 - 4.0 IU/mL . The reference range was not u sed to interpret th is result as normal/abnormal . LUCILLE (test code = LUCILLE) Negative ? ?< or = 4 IU/mLPositive ? ? ?> or = 10 IU/mLIndetermin ate ?5-9 IU/mL Lab Interpretation Normal (test code = 30167-4) [facility] [id number] 21:43:06 Test Item Value Reference Range Interpretation Comments RF (test code = <20 See_Comment [Automated message] 5208482375) The system [employer] generated this result transmitted ref erence range: <20 IU/m L. The reference range was not used to int erpret this result as normal/abnormal . Lab Interpretation (test Normal code = 63362-7) [facility] [id number] 21:43:06 Test Item Value Reference Range Interpretation Comments RF (test code = <20 See_Comment [Automated message] 8890628278) The system [employer] generated this result transmitted ref erence range: <20 IU/m L. The reference range was not used to int erpret this result as normal/abnormal . Lab Interpretation (test Normal code = 95664-6) [facility] [id number] 20:22:55 Test Item Value Reference Range Interpretation Comments SHIRA Titer by IFA <=1:80 (test code = 3187527721) SHIRA Pattern (test SHIRA screen was positive code = 4688366727) at the 1:80 dilution but with low [...] specimen will be held for 7 days. [facility] [id number] 20:22:55 Test Item Value Reference Range Interpretation Comments SHIRA Titer by IFA <=1:80 (test code = 8211016435) SHIRA Pattern (test SHIRA screen was positive code = 2754164849) at the 1:80 dilution but with low [...] specimen will be held for 7 days. [facility]ANCA [id number] 18:12:04 Test Item Value Reference Range Interpretation Comments Myeloperoxidase (MPO) Negative Negative Antibodies, IgG Interpretation (test code = 49186-2) Proteinase 3 (PR3) Negative Negative Antibodies, IgG Interpretation (test code = 96198-1) Myeloperoxidase (MPO) <0.3 See_Comment [Auto mated Antibodies, IgG (test messag e] The code = 8491889728) system [facility] generated this result transmitted reference range : <=3.5 U/mL. The reference range was not used to interpret this result as normal/abnormal . Proteinase 3 (PR3) <0.7 See_Comment [Automat ed Antibodies, IgG (test messag e] The code = 9766761703) system [facility] generated this result transmitted reference range : [...] weeks. Lab Interpretation Normal (test code = 09402-5) [facility] [id number] 18:12:04 Test Item Value Reference Range Interpretation Comments Myeloperoxidase (MPO) Negative Negative Antibodies, IgG Interpretation (test code = 28666-4) Proteinase 3 (PR3) Negative Negative Antibodies, IgG Interpretation (test code = 98187-4) Myeloperoxidase (MPO) <0.3 See_Comment [Auto mated Antibodies, IgG (test messag e] The code = 2980640560) system [facility] generated this result transmitted reference range : <=3.5 U/mL. The reference range was not used to interpret this result as normal/abnormal . Proteinase 3 (PR3) <0.7 See_Comment [Automat ed Antibodies, IgG (test messag e] The code = 8899216404) system [facility] generated this result transmitted reference range : [...] weeks. Lab Interpretation Normal (test code = 29193-6) [facility]40 Test Item Value Reference Range Interpretation Comments MAGNESIUM (test code = 6690807463) 2.9 mg/dL 1.7-2.4 H Lab Interpretation (test code = Abnormal 32694-1) [facility] 10:47:40 Test Item Value Reference Range Interpretation Comments MAGNESIUM (test code = 8859567857) 2.9 mg/dL 1.7-2.4 H Lab Interpretation (test code = Abnormal 34337-0) [facility] WITH [id number] 09:31:49 Test Item Value Reference Range Interpretation [...] RDW-SD (test code = 45.5 fL 39.0-49.9 82094-8) RDW-CV (test code = 14.4 % 12.0-15.5 788-0) PLT (test code = See_Comment [Automated 777-3) message] The system which generated this result transmit britney reference range : 166 - 358 10*3/ ?L. The reference range was not u sed to interpret th is result as normal/abnormal . MPV (test code = 10.0 fL 9.5-12.9 95287-6) NRBC/100 WBC (test See_Comment [Automat ed code = 9620723780) message] The system which generated this result transmit britney reference range : 0.0 - 10.0 /100 WBCs. The reference range was not used to interpret this result as normal/abnormal . NRBC x10^3 (test code <0.01 See_Comment [Auto mated = 7830986684) message] The system which generated this result transmit britney reference range : 10*3/?L. The reference range was not used to interpret this result as normal/abnormal . GRAN MAT (NEUT) % 93.4 % (test code = 770-8) IMM GRAN % (test code 1.50 % = 9344758817) LYMPH % (test code = 2.4 % 736-9) MONO % (test code = 2.6 % 5905-5) EOS % (test code = 0.0 % 713-8) BASO % (test code = 0.1 % 706-2) GRAN MAT x10^3(ANC) 17.74 10*3/uL 1.88-7.09 H (test code = 8864856429) IMM GRAN x10^3 (test 0.28 10*3/uL 0.00-0.06 H code = 2931603689) LYMPH x10^3 (test code 0.46 10*3/uL 1.32-3.29 L = 731-0) MONO x10^3 (test code 0.50 10*3/uL 0.33-0.92 = 742-7) EOS x10^3 (test code = <0.03 0.03-0.39 L 711-2) BASO x10^3 (test code <0.03 0.01-0.07 = 704-7) TOXIC CHANGES (test Present A code = 803-7) Lab Interpretation Abnormal (test code = 08682-5) [facility] WITH [id number] 09:31:49 Test Item Value Reference Range Interpretation Comments WBC (test code = See_Comment H [Automated 6690-2) message] The system which generated this result transmit britney reference range : 4.30 - 11.10 10*3/?L. The reference range was not used to interpret this result as normal/abnormal . RBC (test code = See_Comment L [Automated 729-8) message] The system which generated this result [...] RDW-SD (test code = 45.5 fL 39.0-49.9 17782-3) RDW-CV (test code = 14.4 % 12.0-15.5 788-0) PLT (test code = See_Comment [Automated 777-3) message] The system which generated this result transmit britney reference range : 166 - 358 10*3/ ?L. The reference range was not u sed to interpret th is result as normal/abnormal . MPV (test code = 10.0 fL 9.5-12.9 94443-7) NRBC/100 WBC (test See_Comment [Automat ed code = 5359888410) message] The system which generated this result transmit britney reference range : 0.0 - 10.0 /100 WBCs. The reference range was not used to interpret this result as normal/abnormal . NRBC x10^3 (test code <0.01 See_Comment [Auto mated = 3273313257) message] The system which generated this result transmit britney reference range : 10*3/?L. The reference range was not used to interpret this result as normal/abnormal . GRAN MAT (NEUT) % 93.4 % (test code = 770-8) IMM GRAN % (test code 1.50 % = 8988322731) LYMPH % (test code = 2.4 % 736-9) MONO % (test code = 2.6 % 5905-5) EOS % (test code = 0.0 % 713-8) BASO % (test code = 0.1 % 706-2) GRAN MAT x10^3(ANC) 17.74 10*3/uL 1.88-7.09 H (test code = 1648116303) IMM GRAN x10^3 (test 0.28 10*3/uL 0.00-0.06 H code = 7437847346) LYMPH x10^3 (test code 0.46 10*3/uL 1.32-3.29 L = 731-0) MONO x10^3 (test code 0.50 10*3/uL 0.33-0.92 = 742-7) EOS x10^3 (test code = <0.03 0.03-0.39 L 711-2) BASO x10^3 (test code <0.03 0.01-0.07 = 704-7) TOXIC CHANGES (test Present A code = 803-7) Lab Interpretation Abnormal (test code = 22023-9) [facility] METABOLIC PANEL (NA, K, CL, CO2, GLUCOSE, BUN, CREATININE, CA)2021-10-19 09:25:48 Test Item Value Reference Range Interpretation Comments NA (test code = 144 mmol/L 135-145 3874019034) K (test code = 4.5 mmol/L 3.5-5.0 3647526754) CL (test code = 111 mmol/L 98-108 H 5727707385) CO2 TOTAL (test code = 27 mmol/L 23-31 4716705173) AGAP (test code = 2-16 1852119749) BUN (test code = 30 mg/dL 7-23 H 0298274689) GLUCOSE (test code = 159 mg/dL 70-110 H 3071158759) CREATININE (test code = 0.81 mg/dL 0.50-1.04 2858877889) CALCIUM (test code = 8.2 mg/dL 8.6-10.6 L 6346370218) eGFR (test code = mL/min/1.73m2 5047354007) LUCILLE (test code = LUCILLE) Association of [...] tests). Lab Interpretation Abnormal (test code = 56961-1) [facility] METABOLIC PANEL (NA, K, CL, CO2, GLUCOSE, BUN, CREATININE, CA)2021-10-19 09:25:48 Test Item Value Reference Range Interpretation Comments NA (test code = 144 mmol/L 135-145 9745144408) K (test code = 4.5 mmol/L 3.5-5.0 9261500129) CL (test code = 111 mmol/L 98-108 H 6911067141) CO2 TOTAL (test code = 27 mmol/L 23-31 2274473252) AGAP (test code = 2-16 4405295771) BUN (test code = 30 mg/dL 7-23 H 3054505224) GLUCOSE (test code = 159 mg/dL 70-110 H 0545035465) CREATININE (test code = 0.81 mg/dL 0.50-1.04 3576692811) CALCIUM (test code = 8.2 mg/dL 8.6-10.6 L 6819235414) eGFR (test code = mL/min/1.73m2 6865064668) LUCILLE (test code = LUCILLE) Association of [...] tests). Lab Interpretation Abnormal (test code = 53750-5) [facility] GLUCOSE (AUTOMATED)2021-10-19 02:29:39 Test Item Value Reference Range Interpretation Comments POCT GLU (test code = 9716198169) 159 mg/dL 70-110 H Lab Interpretation (test code = Abnormal 00747-1) [facility] GLUCOSE (AUTOMATED)2021-10-19 02:29:39 Test Item Value Reference Range Interpretation Comments POCT GLU (test code = 8450815326) 159 mg/dL 70-110 H Lab Interpretation (test code = Abnormal 73426-1) [facility] [id number] 22:06:05 Test Item Value Reference Range Interpretation Comments SHIRA (test code = Positive Negative A 1626704123) LUCILLE (test code = LUCILLE) Negative - No Anti-Nuclear Antibodies detected by IFA.Positive - SHIRA IFA screen performed with a 1:80 dilution in adults and a 1:40 dilution in pediatrics. Any SHIRA "Positive" will have titer performed and reported separately. Lab Interpretation (test Abnormal code = 74029-7) [facility] [id number] 22:06:05 Test Item Value Reference Range Interpretation Comments SHIRA (test code = Positive Negative A 0035967662) LUCILLE (test code = LUCILLE) Negative - No Anti-Nuclear Antibodies detected by IFA.Positive - SHIRA IFA screen performed with a 1:80 dilution in adults and a 1:40 dilution in pediatrics. Any SHIRA "Positive" will have titer performed and reported separately. Lab Interpretation (test Abnormal code = 11146-3) [facility]GL[facility]GLOB[facility] (A1C)2021-10-18 17:16:16 Test Item Value Reference Range Interpretation Comments HGB A1C (test code = 6.0 % 4.0-5.7 H 4548-4) LUCILLE (test code = LUCILLE) Reference RangesNormal: <5.7%Prediabetes: 5.7 - 6.4%Diabetes: > 6.5% Lab Interpretation (test Abnormal code = 50516-1) [facility] (A1C)2021-10-18 17:16:16 Test Item Value Reference Range Interpretation Comments HGB A1C (test code = 6.0 % 4.0-5.7 H 4548-4) LUCILLE (test code = LUCILLE) Reference RangesNormal: <5.7%Prediabetes: 5.7 - 6.4%Diabetes: > 6.5% Lab Interpretation (test Abnormal code = 08971-7) [facility] WITH [id number] 10:21:29 Test Item Value Reference Range Interpretation Comments WBC (test code = See_Comment H [Automated 4890-2) message] The system which generated this result transmit britney reference range : 4.30 - 11.10 10*3/?L. The reference range was not used to interpret this result as normal/abnormal . RBC (test code = See_Comment L [Automated 939-8) message] The system which generated this result [...] RDW-SD (test code = 44.0 fL 39.0-49.9 80232-1) RDW-CV (test code = 14.1 % 12.0-15.5 788-0) PLT (test code = See_Comment [Automated 777-3) message] The system which generated this result transmit britney reference range : 166 - 358 10*3/ ?L. The reference range was not u sed to interpret th is result as normal/abnormal . MPV (test code = 10.5 fL 9.5-12.9 13454-9) NRBC/100 WBC (test See_Comment [Automat ed code = 7886291971) message] The system which generated this result transmit britney reference range : 0.0 - 10.0 /100 WBCs. The reference range was not used to interpret this result as normal/abnormal . NRBC x10^3 (test code <0.01 See_Comment [Auto mated = 3173334433) message] The system which generated this result transmit britney reference range : 10*3/?L. The reference range was not used to interpret this result as normal/abnormal . GRAN MAT (NEUT) % 94.3 % (test code = 770-8) IMM GRAN % (test code 1.00 % = 8188678944) LYMPH % (test code = 2.1 % 736-9) MONO % (test code = 2.5 % 5905-5) EOS % (test code = 0.0 % 713-8) BASO % (test code = 0.1 % 706-2) GRAN MAT x10^3(ANC) 18.69 10*3/uL 1.88-7.09 H (test code = 5978782870) IMM GRAN x10^3 (test 0.20 10*3/uL 0.00-0.06 H code = 1453847837) LYMPH x10^3 (test code 0.42 10*3/uL 1.32-3.29 L = 731-0) MONO x10^3 (test code 0.50 10*3/uL 0.33-0.92 = 742-7) EOS x10^3 (test code = <0.03 0.03-0.39 L 711-2) BASO x10^3 (test code <0.03 0.01-0.07 = 704-7) TOXIC CHANGES (test Present A code = 803-7) Lab Interpretation Abnormal (test code = 92740-8) [facility] WITH [id number] 10:21:29 Test Item Value Reference Range Interpretation [...] RDW-SD (test code = 44.0 fL 39.0-49.9 40752-0) RDW-CV (test code = 14.1 % 12.0-15.5 788-0) PLT (test code = See_Comment [Automated 777-3) message] The system which generated this result transmit britney reference range : 166 - 358 10*3/ ?L. The reference range was not u sed to interpret th is result as normal/abnormal . MPV (test code = 10.5 fL 9.5-12.9 23487-6) NRBC/100 WBC (test See_Comment [Automat ed code = 5127812440) message] The system which generated this result transmit britney reference range : 0.0 - 10.0 /100 WBCs. The reference range was not used to interpret this result as normal/abnormal . NRBC x10^3 (test code <0.01 See_Comment [Auto mated = 6586197571) message] The system which generated this result transmit britney reference range : 10*3/?L. The reference range was not used to interpret this result as normal/abnormal . GRAN MAT (NEUT) % 94.3 % (test code = 770-8) IMM GRAN % (test code 1.00 % = 6772519216) LYMPH % (test code = 2.1 % 736-9) MONO % (test code = 2.5 % 5905-5) EOS % (test code = 0.0 % 713-8) BASO % (test code = 0.1 % 706-2) GRAN MAT x10^3(ANC) 18.69 10*3/uL 1.88-7.09 H (test code = 1554474704) IMM GRAN x10^3 (test 0.20 10*3/uL 0.00-0.06 H code = 5072298605) LYMPH x10^3 (test code 0.42 10*3/uL 1.32-3.29 L = 731-0) MONO x10^3 (test code 0.50 10*3/uL 0.33-0.92 = 742-7) EOS x10^3 (test code = <0.03 0.03-0.39 L 711-2) BASO x10^3 (test code <0.03 0.01-0.07 = 704-7) TOXIC CHANGES (test Present A code = 803-7) Lab Interpretation Abnormal (test code = 23567-0) [facility] METABOLIC PANEL (NA, K, CL, CO2, GLUCOSE, BUN, CREATININE, CA)2021-10-18 09:49:57 Test Item Value Reference Range Interpretation Comments NA (test code = 141 mmol/L 135-145 4954574896) K (test code = 4.9 mmol/L 3.5-5.0 9733736981) CL (test code = 107 mmol/L 98-108 9530990905) CO2 TOTAL (test code = 26 mmol/L 23-31 6353441140) AGAP (test code = 2-16 8020519137) BUN (test code = 30 mg/dL 7-23 H 3880026595) GLUCOSE (test code = 166 mg/dL 70-110 H 4645457313) CREATININE (test code = 0.76 mg/dL 0.50-1.04 0418688084) CALCIUM (test code = 8.2 mg/dL 8.6-10.6 L 8971657589) eGFR (test code = mL/min/1.73m2 7714836870) LUCILLE (test code = LUCILLE) Association of [...] tests). Lab Interpretation Abnormal (test code = 40782-1) [facility]57 Test Item Value Reference Range Interpretation Comments MAGNESIUM (test code = 7679934514) 3.0 mg/dL 1.7-2.4 H Lab Interpretation (test code = Abnormal 42131-6) [facility]PH[facility]20[facility] 09:49:57 Test Item Value Reference Range Interpretation Comments PHOSPHORUS (test code = 3467134799) 4.0 mg/dL 2.5-5.0 Lab Interpretation (test code = Normal 38523-9) [facility] (NA, K, CL, CO2, GLUCOSE, BUN, CREATININE, CA)2021-10-18 09:49:57 Test Item Value Reference Range Interpretation Comments NA (test code = 141 mmol/L 135-145 2484461432) K (test code = 4.9 mmol/L 3.5-5.0 1781589698) CL (test code = 107 mmol/L 98-108 1575160653) CO2 TOTAL (test code = 26 mmol/L 23-31 7827737331) AGAP (test code = 2-16 4265233981) BUN (test code = 30 mg/dL 7-23 H 4119678220) GLUCOSE (test code = 166 mg/dL 70-110 H 8964419197) CREATININE (test code = 0.76 mg/dL 0.50-1.04 3015875774) CALCIUM (test code = 8.2 mg/dL 8.6-10.6 L 6564966084) eGFR (test code = mL/min/1.73m2 9956691707) LUCILLE (test code = LUCILLE) Association of [...] tests). Lab Interpretation Abnormal (test code = 65790-2) [facility] 09:49:57 Test Item Value Reference Range Interpretation Comments MAGNESIUM (test code = 4762426381) 3.0 mg/dL 1.7-2.4 H Lab Interpretation (test code = Abnormal 23562-2) [facility] 09:49:57 Test Item Value Reference Range Interpretation Comments PHOSPHORUS (test code = 4956149718) 4.0 mg/dL 2.5-5.0 Lab Interpretation (test code = Normal 55880-6) [facility]HIV [facility]2 [facility]-AB WITH [id number] 02:31:06 Test Item Value Reference Range Interpretation Comments HIV Negative Negative Semi-quantitative (test code = 43439-0) LUCILLE (test code = Non-reactive for HIV-1 LUCILLE) antigen and HIV-1/HIV-2 antibodies. ?No laboratory evidence of HIV infection. ?Repeat in 2-4 weeks if acute HIV infection is suspected. [facility] WITH [id number] 02:31:06 Test Item Value Reference Range Interpretation Comments HIV Negative Negative Semi-quantitative (test code = 35711-1) LUCILLE (test code = Non-reactive for HIV-1 LUCILLE) antigen and HIV-1/HIV-2 antibodies. ?No laboratory evidence of HIV infection. ?Repeat in 2-4 weeks if acute HIV infection is suspected. [facility] (NA, K, CL, CO2, GLUCOSE, BUN, CREATININE, CA)2021-10-18 01:11:26 Test Item Value Reference Range Interpretation Comments NA (test code = 141 mmol/L 135-145 7033536258) K (test code = 4.6 mmol/L 3.5-5.0 9258750978) CL (test code = 106 mmol/L 98-108 2274060332) CO2 TOTAL (test code = 26 mmol/L 23-31 9916309270) AGAP (test code = 2-16 0978131910) BUN (test code = 28 mg/dL 7-23 H 0577808083) GLUCOSE (test code = 180 mg/dL 70-110 H 2844538944) CREATININE (test code = 0.82 mg/dL 0.50-1.04 9337589761) CALCIUM (test code = 8.3 mg/dL 8.6-10.6 L 0809729648) eGFR (test code = mL/min/1.73m2 7885133855) LUCILLE (test code = LUCILLE) Association of [...] tests). Lab Interpretation Abnormal (test code = 53860-8) [facility] METABOLIC PANEL (NA, K, CL, CO2, GLUCOSE, BUN, CREATININE, CA)2021-10-18 01:11:26 Test Item Value Reference Range Interpretation Comments NA (test code = 141 mmol/L 135-145 4724313211) K (test code = 4.6 mmol/L 3.5-5.0 6016208788) CL (test code = 106 mmol/L 98-108 7089501343) CO2 TOTAL (test code = 26 mmol/L 23-31 0463498849) AGAP (test code = 2-16 9218753540) BUN (test code = 28 mg/dL 7-23 H 7338328949) GLUCOSE (test code = 180 mg/dL 70-110 H 6846878357) CREATININE (test code = 0.82 mg/dL 0.50-1.04 6717103721) CALCIUM (test code = 8.3 mg/dL 8.6-10.6 L 7597373462) eGFR (test code = mL/min/1.73m2 9787581266) LUCILLE (test code = LUCILLE) Association of [...] tests). Lab Interpretation Abnormal (test code = 46715-9) [facility] [id number] 22:06:03 Test Item Value Reference Range Interpretation Comments NT-proBNP (test code 250 pg/mL See_Comment H [Autom ated = 4272208518) message] The system which generated this result transmitted reference range : <=125. The reference range was not used to interpret this result as normal/abnormal . LUCILLE (test code = LUCILLE) Biotin has been reported to cause a negative bias, interpret results relative to patient's use of biotin. Lab Interpretation Abnormal (test code = 49453-2) [facility] [id number] 22:06:03 Test Item Value Reference Range Interpretation Comments NT-proBNP (test code 250 pg/mL See_Comment H [Autom ated = 4974987682) message] The system which generated this result transmitted reference range : <=125. The reference range was not used to interpret this result as normal/abnormal . LUCILLE (test code = LUCILLE) Biotin has been reported to cause a negative bias, interpret results relative to patient's use of biotin. Lab Interpretation Abnormal (test code = 77274-8) [facility] CenterABG+COOX+NA+K+GLU+CA2+2021-10-17 21:42:22 Test Item Value Reference Range Interpretation Comments PH (test code = 2) 7.35-7.45 PCO2 (test code = See_Comment [Automate d message] 2316176238) The system [employer] generated this result transmit britney reference range : 35 - 45 mmHg. The reference range was not used to interpret this result as normal/abnormal . PO2 (test code = See_Comment H [Automated message] 5420139802) The system [employer] generated this result transmit britney reference range : 80 - 100 mmHg. The reference range was not used to interpret this result as normal/abnormal . HCO3 (test code = See_Comment [Automate d message] 6165641794) The system [employer] generated this result transmit britney reference range : 22 - 26 mEq/L. The reference range was not used to interpret this result as normal/abnormal . BE (test code = See_Comment [Automated message] 6541521019) The system [employer] generated this result transmit britney reference range : -3.0 - 3.0 mEq/ L. The reference r nicholas was not used to interpret this result as normal/abnormal . THB (test code = 13.0 g/dL 12.0-16.0 3396996705) %O2HB (test code = 98.9 % 94.0-99.0 7502998428) %COHB ART (test code = 0.3 % 0.0-1.5 6597152032) %METHB ART (test code = 0.0 % 0.4-1.5 L 7032069192) VOL%O2 ART (test code = 18.5 % 15.0-23.0 3450267639) NA (test code = 139 mmol/L 135-145 2494649500) K+ (test code = 4.6 mmol/L 3.5-5.0 3006783247) AC CA IONZ (test code = 4.50 mg/dL 4.50-5.30 9586517182) GLUCOSE (test code = 166 mg/dL 70-110 H 1164204585) Lab Interpretation Abnormal (test code = 68314-1) [facility]ABG+COOX+NA+K+GLU+CA2+2021-10-17 21:42:22 Test Item Value Reference Range Interpretation Comments PH (test code = 2) 7.35-7.45 PCO2 (test code = See_Comment [Automate d message] 8530807674) The system [employer] generated this result transmit britney reference range : 35 - 45 mmHg. The reference range was not used to interpret this result as normal/abnormal . PO2 (test code = See_Comment H [Automated message] 4341465509) The system [employer] generated this result transmit britney reference range : 80 - 100 mmHg. The reference range was not used to interpret this result as normal/abnormal . HCO3 (test code = See_Comment [Automate d message] 2911705326) The system [employer] generated this result transmit britney reference range : 22 - 26 mEq/L. The reference range was not used to interpret this result as normal/abnormal . BE (test code = See_Comment [Automated message] 6464500736) The system ic [employer] generated this result transmit britney reference range : -3.0 - 3.0 mEq/ L. The reference r nicholas was not used to interpret this result as normal/abnormal . THB (test code = 13.0 g/dL 12.0-16.0 3938002392) %O2HB (test code = 98.9 % 94.0-99.0 4959843668) %COHB ART (test code = 0.3 % 0.0-1.5 6849346381) %METHB ART (test code = 0.0 % 0.4-1.5 L 8186577962) VOL%O2 ART (test code = 18.5 % 15.0-23.0 4240918664) NA (test code = 139 mmol/L 135-145 8551222265) K+ (test code = 4.6 mmol/L 3.5-5.0 6107114435) AC CA IONZ (test code = 4.50 mg/dL 4.50-5.30 9151178660) GLUCOSE (test code = 166 mg/dL 70-110 H 9884390556) Lab Interpretation Abnormal (test code = 90828-1) [facility] WITH [id number] 11:01:03 Test Item Value Reference Range Interpretation Comments WBC (test code = See_Comment H [Automated 0479-2) message] The system which generated this result transmit britney reference range : 4.30 - 11.10 10*3/?L. The reference range was not used to interpret this result as normal/abnormal . RBC (test code = See_Comment [Automated 685-8) message] The system which generated this result [...] RDW-SD (test code = 44.5 fL 39.0-49.9 68458-9) RDW-CV (test code = 14.1 % 12.0-15.5 788-0) PLT (test code = See_Comment [Automated 777-3) message] The system which generated this result transmit britney reference range : 166 - 358 10*3/ ?L. The reference range was not u sed to interpret th is result as normal/abnormal . MPV (test code = 11.0 fL 9.5-12.9 86077-3) NRBC/100 WBC (test See_Comment [Automat ed code = 6658506348) message] The system which generated this result transmit britney reference range : 0.0 - 10.0 /100 WBCs. The reference range was not used to interpret this result as normal/abnormal . NRBC x10^3 (test code <0.01 See_Comment [Auto mated = 6815894251) message] The system which generated this result transmit britney reference range : 10*3/?L. The reference range was not used to interpret this result as normal/abnormal . GRAN MAT (NEUT) % 91.6 % (test code = 770-8) IMM GRAN % (test code 1.40 % = 0827416849) LYMPH % (test code = 5.5 % 736-9) MONO % (test code = 1.4 % 5905-5) EOS % (test code = 0.0 % 713-8) BASO % (test code = 0.1 % 706-2) GRAN MAT x10^3(ANC) 17.75 10*3/uL 1.88-7.09 H (test code = 8068412591) IMM GRAN x10^3 (test 0.27 10*3/uL 0.00-0.06 H code = 9827362208) LYMPH x10^3 (test code 1.06 10*3/uL 1.32-3.29 L = 731-0) MONO x10^3 (test code 0.28 10*3/uL 0.33-0.92 L = 742-7) EOS x10^3 (test code = <0.03 0.03-0.39 L 711-2) BASO x10^3 (test code <0.03 0.01-0.07 = 704-7) TOXIC CHANGES (test Present A code = 803-7) Lab Interpretation Abnormal (test code = 72841-4) [facility] WITH [id number] 11:01:03 Test Item Value Reference Range Interpretation Comments WBC (test code = See_Comment H [Automated 2790-2) message] The system which generated this result [...] RDW-SD (test code = 44.5 fL 39.0-49.9 28106-5) RDW-CV (test code = 14.1 % 12.0-15.5 788-0) PLT (test code = See_Comment [Automated 777-3) message] The system which generated this result transmit britney reference range : 166 - 358 10*3/ ?L. The reference range was not u sed to interpret th is result as normal/abnormal . MPV (test code = 11.0 fL 9.5-12.9 61875-7) NRBC/100 WBC (test See_Comment [Automat ed code = 0374454373) message] The system which generated this result transmit britney reference range : 0.0 - 10.0 /100 WBCs. The reference range was not used to interpret this result as normal/abnormal . NRBC x10^3 (test code <0.01 See_Comment [Auto mated = 0055307275) message] The system which generated this result transmit britney reference range : 10*3/?L. The reference range was not used to interpret this result as normal/abnormal . GRAN MAT (NEUT) % 91.6 % (test code = 770-8) IMM GRAN % (test code 1.40 % = 0309068743) LYMPH % (test code = 5.5 % 736-9) MONO % (test code = 1.4 % 5905-5) EOS % (test code = 0.0 % 713-8) BASO % (test code = 0.1 % 706-2) GRAN MAT x10^3(ANC) 17.75 10*3/uL 1.88-7.09 H (test code = 1214747575) IMM GRAN x10^3 (test 0.27 10*3/uL 0.00-0.06 H code = 3195036806) LYMPH x10^3 (test code 1.06 10*3/uL 1.32-3.29 L = 731-0) MONO x10^3 (test code 0.28 10*3/uL 0.33-0.92 L = 742-7) EOS x10^3 (test code = <0.03 0.03-0.39 L 711-2) BASO x10^3 (test code <0.03 0.01-0.07 = 704-7) TOXIC CHANGES (test Present A code = 803-7) Lab Interpretation Abnormal (test code = 16828-8) [facility] METABOLIC PANEL (NA, K, CL, CO2, GLUCOSE, BUN, CREATININE, CA)2021-10-17 10:54:32 Test Item Value Reference Range Interpretation Comments NA (test code = 135 mmol/L 135-145 1714290833) K (test code = 5.2 mmol/L 3.5-5.0 H Slight 2482945559) hemolysis CL (test code = 101 mmol/L 98-108 9262477635) CO2 TOTAL (test code 27 mmol/L 23-31 = 2530625905) AGAP (test code = 2-16 5452587141) BUN (test code = 21 mg/dL 7-23 Slight 3808842904) hemolysis GLUCOSE (test code = 153 mg/dL 70-110 H 7221482364) CREATININE (test code 0.71 mg/dL 0.50-1.04 = 9674833313) CALCIUM (test code = 8.3 mg/dL 8.6-10.6 L 9688871259) eGFR (test code = mL/min/1.73m2 8480412900) LUCILLE (test code = LUCILLE) Association of [...] tests). Lab Interpretation Abnormal (test code = 84061-6) [facility] Test Item Value Reference Range Interpretation Comments MAGNESIUM (test code = 6980358241) 2.2 mg/dL 1.7-2.4 Lab Interpretation (test code = Normal 75870-9) [facility] 10:54:32 Test Item Value Reference Range Interpretation Comments PHOSPHORUS (test code = 6905086511) 5.9 mg/dL 2.5-5.0 H Lab Interpretation (test code = Abnormal 40005-3) [facility] (NA, K, CL, CO2, GLUCOSE, BUN, CREATININE, CA)2021-10-17 10:54:32 Test Item Value Reference Range Interpretation Comments NA (test code = 135 mmol/L 135-145 8675344647) K (test code = 5.2 mmol/L 3.5-5.0 H Slight 5398021901) hemolysis CL (test code = 101 mmol/L 98-108 4000043306) CO2 TOTAL (test code 27 mmol/L 23-31 = 2840388356) AGAP (test code = 2-16 3840760241) BUN (test code = 21 mg/dL 7-23 Slight 4181911734) hemolysis GLUCOSE (test code = 153 mg/dL 70-110 H 7207234318) CREATININE (test code 0.71 mg/dL 0.50-1.04 = 3257084009) CALCIUM (test code = 8.3 mg/dL 8.6-10.6 L 6073299324) eGFR (test code = mL/min/1.73m2 1465311620) LUCILLE (test code = LUCILLE) Association of [...] tests). Lab Interpretation Abnormal (test code = 16310-7) [facility] 10:54:32 Test Item Value Reference Range Interpretation Comments MAGNESIUM (test code = 6237838900) 2.2 mg/dL 1.7-2.4 Lab Interpretation (test code = Normal 57652-2) [facility] 10:54:32 Test Item Value Reference Range Interpretation Comments PHOSPHORUS (test code = 7678943343) 5.9 mg/dL 2.5-5.0 H Lab Interpretation (test code = Abnormal 19577-7) [facility] [id number] 10:53:06 Test Item Value Reference Range Interpretation Comments ESR (test code = See_Comment H [Automated message] 6936630165) The system [employer] generated this result transmitted ref erence range: 0 - 20 m m/HR. The reference r nicholas was not used to interpret this result as normal/abnor mal. Lab Interpretation (test Abnormal code = 29912-1) [facility] [id number] 10:53:06 Test Item Value Reference Range Interpretation Comments ESR (test code = See_Comment H [Automated message] 1987782440) The system [employer] generated this result transmitted ref erence range: 0 - 20 m m/HR. The reference r nicholas was not used to interpret this result as normal/abnor mal. Lab Interpretation (test Abnormal code = 05164-3) [facility] 11:13:05 Test Item Value Reference Range Interpretation Comments MAGNESIUM (test code = 3196575640) 2.3 mg/dL 1.7-2.4 Lab Interpretation (test code = Normal 41587-4) [facility] 11:13:05 Test Item Value Reference Range Interpretation Comments PHOSPHORUS (test code = 8066803789) 3.4 mg/dL 2.5-5.0 Lab Interpretation (test code = Normal 65221-3) [facility] 11:13:05 Test Item Value Reference Range Interpretation Comments MAGNESIUM (test code = 1560669079) 2.3 mg/dL 1.7-2.4 Lab Interpretation (test code = Normal 00777-3) [facility] 11:13:05 Test Item Value Reference Range Interpretation Comments PHOSPHORUS (test code = 9853927278) 3.4 mg/dL 2.5-5.0 Lab Interpretation (test code = Normal 87915-0) [facility] (NA, K, CL, CO2, GLUCOSE, BUN, CREATININE, CA)2021-10-16 11:13:04 Test Item Value Reference Range Interpretation Comments NA (test code = 135 mmol/L 135-145 4983945908) K (test code = 4.6 mmol/L 3.5-5.0 6620113821) CL (test code = 102 mmol/L 98-108 5265347264) CO2 TOTAL (test code = 29 mmol/L 23-31 4616471089) AGAP (test code = 2-16 7597572470) BUN (test code = 24 mg/dL 7-23 H 8985181790) GLUCOSE (test code = 90 mg/dL 70-110 1508423605) CREATININE (test code = 0.87 mg/dL 0.50-1.04 6615231896) CALCIUM (test code = 8.0 mg/dL 8.6-10.6 L 4289538512) eGFR (test code = mL/min/1.73m2 6881505084) LUCILLE (test code = LUCILLE) Association of [...] tests). Lab Interpretation Abnormal (test code = 38900-5) [facility] METABOLIC PANEL (NA, K, CL, CO2, GLUCOSE, BUN, CREATININE, CA)2021-10-16 11:13:04 Test Item Value Reference Range Interpretation Comments NA (test code = 135 mmol/L 135-145 1405594062) K (test code = 4.6 mmol/L 3.5-5.0 6825985908) CL (test code = 102 mmol/L 98-108 7196270389) CO2 TOTAL (test code = 29 mmol/L 23-31 6519716152) AGAP (test code = 2-16 0816465262) BUN (test code = 24 mg/dL 7-23 H 2425210473) GLUCOSE (test code = 90 mg/dL 70-110 1960231250) CREATININE (test code = 0.87 mg/dL 0.50-1.04 9623213210) CALCIUM (test code = 8.0 mg/dL 8.6-10.6 L 0474732720) eGFR (test code = mL/min/1.73m2 7782664252) LUCILLE (test code = LUCILLE) Association of [...] tests). Lab Interpretation Abnormal (test code = 56044-8) [facility] + LACTIC [id number] 10:59:55 Test Item Value Reference Range Interpretation Comments PH (test code = 2) 7.35-7.45 PCO2 (test code = See_Comment [Automate d 3835826120) message] The sy stem which generated this result transmitted reference range : 35 - 45 mmHg. The reference range was not used to interpret this result as normal/abnormal . PO2 (test code = See_Comment L [Automated 0943076956) message] The sy stem which generated this result transmitted reference range : 80 - 100 mmHg. The reference range was not used to interpret this result as normal/abnormal . HCO3 (test code = See_Comment H [Automate d 7400314073) message] The sy stem which generated this result transmitted reference range : 22 - 26 mEq/L. The reference range was not used to interpret this result as normal/abnormal . BE (test code = See_Comment [Automated 9406114542) message] The sy stem which generated this result transmitted reference range : -3.0 - 3.0 mEq/ L. The reference r nicholas was not used to interpret this result as normal/abnormal . THB (test code = 13.7 g/dL 12.0-16.0 1106026993) %O2HB (test code = 86.3 % 94.0-99.0 L 6747888648) %COHB ART (test code = 0.1 % 0.0-1.5 6850463634) %METHB ART (test code = 0.1 % 0.4-1.5 L 7633714145) VOL%O2 ART (test code = 16.6 % 15.0-23.0 4679442988) NA (test code = 135 mmol/L 135-145 9410811888) K+ (test code = 4.6 mmol/L 3.5-5.0 8065450844) AC CA IONZ (test code = 4.70 mg/dL 4.50-5.30 2824980888) GLUCOSE (test code = 88 mg/dL 70-110 5254447127) LACTIC ACID (test code 1.41 mmol/L 0.50-2.20 QUES = 8896546362) Lab Interpretation Abnormal (test code = 69745-3) [facility] LACTIC [id number] 10:59:55 Test Item Value Reference Range Interpretation Comments PH (test code = 2) 7.35-7.45 PCO2 (test code = See_Comment [Automate d 9349094186) message] The sy stem which generated this result transmitted reference range : 35 - 45 mmHg. The reference range was not used to interpret this result as normal/abnormal . PO2 (test code = See_Comment L [Automated 8096539282) message] The sy stem which generated this result transmitted reference range : 80 - 100 mmHg. The reference range was not used to interpret this result as normal/abnormal . HCO3 (test code = See_Comment H [Automate d 4363192908) message] The sy stem which generated this result transmitted reference range : 22 - 26 mEq/L. The reference range was not used to interpret this result as normal/abnormal . BE (test code = See_Comment [Automated 3381505240) message] The sy stem which generated this result transmitted reference range : -3.0 - 3.0 mEq/ L. The reference r nicholas was not used to interpret this result as normal/abnormal . THB (test code = 13.7 g/dL 12.0-16.0 2961608390) %O2HB (test code = 86.3 % 94.0-99.0 L 7242523569) %COHB ART (test code = 0.1 % 0.0-1.5 2689995482) %METHB ART (test code = 0.1 % 0.4-1.5 L 2534636667) VOL%O2 ART (test code = 16.6 % 15.0-23.0 2874918108) NA (test code = 135 mmol/L 135-145 5585336792) K+ (test code = 4.6 mmol/L 3.5-5.0 2574589995) AC CA IONZ (test code = 4.70 mg/dL 4.50-5.30 7383029535) GLUCOSE (test code = 88 mg/dL 70-110 9577654739) LACTIC ACID (test code 1.41 mmol/L 0.50-2.20 QUES = 5279471271) Lab Interpretation Abnormal (test code = 03604-3) [facility] WITH [id number] 10:54:01 Test Item Value Reference Range Interpretation Comments WBC (test code = See_Comment H [Automated 4744-2) message] The system which generated this result [...] RDW-SD (test code = 47.0 fL 39.0-49.9 52129-7) RDW-CV (test code = 14.6 % 12.0-15.5 788-0) PLT (test code = See_Comment [Automated 777-3) message] The system which generated this result transmit britney reference range : 166 - 358 10*3/ ?L. The reference range was not u sed to interpret th is result as normal/abnormal . MPV (test code = 10.5 fL 9.5-12.9 55967-9) NRBC/100 WBC (test See_Comment [Automat ed code = 7537797061) message] The system which generated this result transmit britney reference range : 0.0 - 10.0 /100 WBCs. The reference range was not used to interpret this result as normal/abnormal . NRBC x10^3 (test code See_Comment [Auto mated = 8532366369) message] The system which generated this result transmit britney reference range : 10*3/?L. The reference range was not used to interpret this result as normal/abnormal . GRAN MAT (NEUT) % 85.6 % (test code = 770-8) IMM GRAN % (test code 1.10 % = 7450752488) LYMPH % (test code = 9.7 % 736-9) MONO % (test code = 3.0 % 5905-5) EOS % (test code = 0.5 % 713-8) BASO % (test code = 0.1 % 706-2) GRAN MAT x10^3(ANC) 12.97 10*3/uL 1.88-7.09 H (test code = 9174105811) IMM GRAN x10^3 (test 0.16 10*3/uL 0.00-0.06 H code = 7936363653) LYMPH x10^3 (test code 1.47 10*3/uL 1.32-3.29 = 731-0) MONO x10^3 (test code 0.45 10*3/uL 0.33-0.92 = 742-7) EOS x10^3 (test code = 0.08 10*3/uL 0.03-0.39 711-2) BASO x10^3 (test code <0.03 0.01-0.07 = 704-7) Lab Interpretation Abnormal (test code = 21825-9) [facility] WITH [id number] 10:54:01 Test Item Value Reference Range Interpretation [...] RDW-SD (test code = 47.0 fL 39.0-49.9 54416-1) RDW-CV (test code = 14.6 % 12.0-15.5 788-0) PLT (test code = See_Comment [Automated 777-3) message] The system which generated this result transmit britney reference range : 166 - 358 10*3/ ?L. The reference range was not u sed to interpret th is result as normal/abnormal . MPV (test code = 10.5 fL 9.5-12.9 93806-3) NRBC/100 WBC (test See_Comment [Automat ed code = 2535623145) message] The system which generated this result transmit britney reference range : 0.0 - 10.0 /100 WBCs. The reference range was not used to interpret this result as normal/abnormal . NRBC x10^3 (test code See_Comment [Auto mated = 2248291322) message] The system which generated this result transmit britney reference range : 10*3/?L. The reference range was not used to interpret this result as normal/abnormal . GRAN MAT (NEUT) % 85.6 % (test code = 770-8) IMM GRAN % (test code 1.10 % = 3693476996) LYMPH % (test code = 9.7 % 736-9) MONO % (test code = 3.0 % 5905-5) EOS % (test code = 0.5 % 713-8) BASO % (test code = 0.1 % 706-2) GRAN MAT x10^3(ANC) 12.97 10*3/uL 1.88-7.09 H (test code = 8619126970) IMM GRAN x10^3 (test 0.16 10*3/uL 0.00-0.06 H code = 6691103995) LYMPH x10^3 (test code 1.47 10*3/uL 1.32-3.29 = 731-0) MONO x10^3 (test code 0.45 10*3/uL 0.33-0.92 = 742-7) EOS x10^3 (test code = 0.08 10*3/uL 0.03-0.39 711-2) BASO x10^3 (test code <0.03 0.01-0.07 = 704-7) Lab Interpretation Abnormal (test code = 80358-1) [facility]-REACT[facility] [id number] 23:24:07 Test Item Value Reference Range Interpretation Comments CRP (test code = 4786819585) 22.1 mg/dL <1.0 H Lab Interpretation (test code = Abnormal 71712-3) [facility]-REACTIVE [id number] 23:24:07 Test Item Value Reference Range Interpretation Comments CRP (test code = 9795170750) 22.1 mg/dL <1.0 H Lab Interpretation (test code = Abnormal 38473-9) [facility] [id number] 23:21:42 Test Item Value Reference Interpretation Comments Range TROPONIN I (test 0.003 ng/mL See_Comment [Automated code = 5187185529) message] The system which generated this result [...] biotin. Lab Interpretation Normal (test code = 12143-2) [id number]:21:42 Test Item Value Reference Interpretation Comments Range TROPONIN I (test 0.003 ng/mL See_Comment [Automated code = 6079963298) message] The system which generated this result [...] biotin. Lab Interpretation Normal (test code = 69260-3) [facility] (NA, K, CL, CO2, GLUCOSE, BUN, CREATININE, CA)2021-10-15 23:12:40 Test Item Value Reference Range Interpretation Comments NA (test code = 136 mmol/L 135-145 0601773844) K (test code = 4.8 mmol/L 3.5-5.0 0101242258) CL (test code = 104 mmol/L 98-108 0357365598) CO2 TOTAL (test code = 26 mmol/L 23-31 9687089633) AGAP (test code = 2-16 5187695235) BUN (test code = 22 mg/dL 7-23 5890298060) GLUCOSE (test code = 114 mg/dL 70-110 H 8961007599) CREATININE (test code = 0.77 mg/dL 0.50-1.04 9124199914) CALCIUM (test code = 8.2 mg/dL 8.6-10.6 L 0075527997) eGFR (test code = mL/min/1.73m2 0152217964) LUCILLE (test code = LUCILLE) Association of [...] tests). Lab Interpretation Abnormal (test code = 57210-1) [facility] METABOLIC PANEL (NA, K, CL, CO2, GLUCOSE, BUN, CREATININE, CA)2021-10-15 23:12:40 Test Item Value Reference Range Interpretation Comments NA (test code = 136 mmol/L 135-145 3759271987) K (test code = 4.8 mmol/L 3.5-5.0 3107888087) CL (test code = 104 mmol/L 98-108 9241611369) CO2 TOTAL (test code = 26 mmol/L 23-31 2590654469) AGAP (test code = 2-16 1369303873) BUN (test code = 22 mg/dL 7-23 0082612754) GLUCOSE (test code = 114 mg/dL 70-110 H 8112354377) CREATININE (test code = 0.77 mg/dL 0.50-1.04 9816808913) CALCIUM (test code = 8.2 mg/dL 8.6-10.6 L 4592093111) eGFR (test code = mL/min/1.73m2 6829852885) LUCILLE (test code = LUCILLE) Association of [...] tests). Lab Interpretation Abnormal (test code = 63453-6) [facility] [id number] 21:55:57 Test Item Value Reference Interpretation Comments Range TROPONIN I (test 0.003 ng/mL See_Comment [Automated code = 4821128844) message] The system which generated this result [...] biotin. Lab Interpretation Normal (test code = 06332-9) [facility] [id number] 21:55:57 Test Item Value Reference Interpretation Comments Range TROPONIN I (test 0.003 ng/mL See_Comment [Automated code = 0906449061) message] The system which generated this result [...] biotin. Lab Interpretation Normal (test code = 92411-6) [facility]20[facility] 19:07:46 Test Item Value Reference Range Interpretation Comments Procalcitonin (test 0.15 ng/mL <0.08 H code = 0016691014) LUCILLE (test code = LUCILLE) INTERPRETATION OF [...] lung abscess/empyema. For further information please refer to:[email or web address] Lab Interpretation Abnormal (test code = 02053-3) [facility]12 19:07:46 Test Item Value Reference Range Interpretation Comments Procalcitonin (test 0.15 ng/mL <0.08 H code = 4057058410) LUCILLE (test code = LUCILLE) INTERPRETATION OF [...] lung abscess/empyema. For further information please refer to:[email or web address] Lab Interpretation Abnormal (test code = 72044-0) [facility] [id number] 18:31:24 Test Item Value Reference Range Interpretation Comments NT-proBNP (test code 43 pg/mL See_Comment [Autom ated = 5187072150) message] The system which generated this result transmitted reference range : <=125. The reference range was not used to interpret this result as normal/abnormal . LUCILLE (test code = LUCILLE) Biotin has been reported to cause a negative bias, interpret results relative to patient's use of biotin. Lab Interpretation Normal (test code = 28277-4) [facility] [id number] 18:31:24 Test Item Value Reference Range Interpretation Comments NT-proBNP (test code 43 pg/mL See_Comment [Autom ated = 0072677034) message] The system which generated this result transmitted reference range : <=125. The reference range was not used to interpret this result as normal/abnormal . LUCILLE (test code = LUCILLE) Biotin has been reported to cause a negative bias, interpret results relative to patient's use of biotin. Lab Interpretation Normal (test code = 17210-4) [facility]20[facility] 09:17:58 Test Item Value Reference Range Interpretation Comments Procalcitonin (test 0.15 ng/mL <0.08 H code = 7980493056) LUCILLE (test code = LUCILLE) INTERPRETATION OF [...] lung abscess/empyema. For further information please refer to:[email or web address] Lab Interpretation Abnormal (test code = 52685-3) [facility] 09:17:58 Test Item Value Reference Range Interpretation Comments Procalcitonin (test 0.15 ng/mL <0.08 H code = 1235212419) LUCILLE (test code = LUCILLE) INTERPRETATION OF [...] lung abscess/empyema. For further information please refer to:[email or web address] Lab Interpretation Abnormal (test code = 45152-9) [facility] (NA, K, CL, CO2, GLUCOSE, BUN, CREATININE, CA)2021-10-15 08:36:11 Test Item Value Reference Range Interpretation Comments NA (test code = 139 mmol/L 135-145 9935845797) K (test code = 5.5 mmol/L 3.5-5.0 H Slight 8187519142) hemolysis CL (test code = 104 mmol/L 98-108 4342419085) CO2 TOTAL (test code 29 mmol/L 23-31 = 6364084503) AGAP (test code = 2-16 5823415097) BUN (test code = 17 mg/dL 7-23 Slight 9164529911) hemolysis GLUCOSE (test code = 131 mg/dL 70-110 H 9803438451) CREATININE (test code 0.77 mg/dL 0.50-1.04 = 4540253235) CALCIUM (test code = 8.5 mg/dL 8.6-10.6 L 6275077004) eGFR (test code = mL/min/1.73m2 2424276690) LUCILLE (test code = LUCILLE) Association of [...] tests). Lab Interpretation Abnormal (test code = 19199-4) [facility] Center[facility] [id number] 08:36:11 Test Item Value Reference Range Interpretation Comments MAGNESIUM (test code = 6921145200) 2.4 mg/dL 1.7-2.4 Lab Interpretation (test code = Normal 24299-2) [facility] (NA, K, CL, CO2, GLUCOSE, BUN, CREATININE, CA)2021-10-15 08:36:11 Test Item Value Reference Range Interpretation Comments NA (test code = 139 mmol/L 135-145 6474799024) K (test code = 5.5 mmol/L 3.5-5.0 H Slight 0334203566) hemolysis CL (test code = 104 mmol/L 98-108 5474266902) CO2 TOTAL (test code 29 mmol/L 23-31 = 2370239092) AGAP (test code = 2-16 6144343014) BUN (test code = 17 mg/dL 7-23 Slight 6298225714) hemolysis GLUCOSE (test code = 131 mg/dL 70-110 H 0176065850) CREATININE (test code 0.77 mg/dL 0.50-1.04 = 2292698283) CALCIUM (test code = 8.5 mg/dL 8.6-10.6 L 6597185977) eGFR (test code = mL/min/1.73m2 9819641730) LUCILLE (test code = LUCILLE) Association of [...] tests). Lab Interpretation Abnormal (test code = 92159-0) [facility] [id number] 08:36:11 Test Item Value Reference Range Interpretation Comments MAGNESIUM (test code = [id number]) 2.4 mg/dL 1.7-2.4 Lab Interpretation (test code = Normal 15498-7) [facility] [id number] 08:21:08 Test Item Value Reference Interpretation Comments Range TROPONIN I (test 0.005 ng/mL See_Comment [Automated code = [id number]) message] The system which generated this result [...] biotin. Lab Interpretation Normal (test code = 45475-3) [facility] [id number] 08:21:08 Test Item Value Reference Interpretation Comments Range TROPONIN I (test 0.005 ng/mL See_Comment [Automated code = [id number]) message] The system which generated this result [...] biotin. Lab Interpretation Normal (test code = 03716-8) [facility] WITH [id number] 07:37:26 Test Item Value Reference Range Interpretation Comments WBC (test code = See_Comment H [Automated 5240-2) message] The system which generated this result transmit britney reference range : 4.30 - 11.10 10*3/?L. The reference range was not used to interpret this result as normal/abnormal . RBC (test code = See_Comment [Automated 719-8) message] The system which generated this result [...] RDW-SD (test code = 47.4 fL 39.0-49.9 46147-5) RDW-CV (test code = 14.6 % 12.0-15.5 788-0) PLT (test code = See_Comment [Automated 137-3) message] The system which generated this result transmit britney reference range : 166 - 358 10*3/ ?L. The reference range was not u sed to interpret th is result as normal/abnormal . MPV (test code = 11.1 fL 9.5-12.9 59845-2) NRBC/100 WBC (test See_Comment [Automat ed code = 9920923628) message] The system which generated this result transmit britney reference range : 0.0 - 10.0 /100 WBCs. The reference range was not used to interpret this result as normal/abnormal . NRBC x10^3 (test code <0.01 See_Comment [Auto mated = 0613641620) message] The system which generated this result transmit britney reference range : 10*3/?L. The reference range was not used to interpret this result as normal/abnormal . GRAN MAT (NEUT) % 92.0 % (test code = 770-8) IMM GRAN % (test code 1.10 % = 5631223124) LYMPH % (test code = 5.0 % 736-9) MONO % (test code = 1.8 % 5905-5) EOS % (test code = 0.0 % 713-8) BASO % (test code = 0.1 % 706-2) GRAN MAT x10^3(ANC) 20.65 10*3/uL 1.88-7.09 H (test code = 7678083063) IMM GRAN x10^3 (test 0.25 10*3/uL 0.00-0.06 H code = 1573059794) LYMPH x10^3 (test code 1.13 10*3/uL 1.32-3.29 L = 731-0) MONO x10^3 (test code 0.40 10*3/uL 0.33-0.92 = 742-7) EOS x10^3 (test code = <0.03 0.03-0.39 L 711-2) BASO x10^3 (test code 0.03 10*3/uL 0.01-0.07 = 704-7) Lab Interpretation Abnormal (test code = 37663-3) [facility] WITH [id number] 07:37:26 Test Item Value Reference Range Interpretation [...] RDW-SD (test code = 47.4 fL 39.0-49.9 28469-7) RDW-CV (test code = 14.6 % 12.0-15.5 788-0) PLT (test code = See_Comment [Automated 777-3) message] The system which generated this result transmit britney reference range : 166 - 358 10*3/ ?L. The reference range was not u sed to interpret th is result as normal/abnormal . MPV (test code = 11.1 fL 9.5-12.9 74545-9) NRBC/100 WBC (test See_Comment [Automat ed code = 7210677760) message] The system which generated this result transmit britney reference range : 0.0 - 10.0 /100 WBCs. The reference range was not used to interpret this result as normal/abnormal . NRBC x10^3 (test code <0.01 See_Comment [Auto mated = 6696654336) message] The system which generated this result transmit britney reference range : 10*3/?L. The reference range was not used to interpret this result as normal/abnormal . GRAN MAT (NEUT) % 92.0 % (test code = 770-8) IMM GRAN % (test code 1.10 % = 2233655628) LYMPH % (test code = 5.0 % 736-9) MONO % (test code = 1.8 % 5905-5) EOS % (test code = 0.0 % 713-8) BASO % (test code = 0.1 % 706-2) GRAN MAT x10^3(ANC) 20.65 10*3/uL 1.88-7.09 H (test code = 5117382980) IMM GRAN x10^3 (test 0.25 10*3/uL 0.00-0.06 H code = 2149277967) LYMPH x10^3 (test code 1.13 10*3/uL 1.32-3.29 L = 731-0) MONO x10^3 (test code 0.40 10*3/uL 0.33-0.92 = 742-7) EOS x10^3 (test code = <0.03 0.03-0.39 L 711-2) BASO x10^3 (test code 0.03 10*3/uL 0.01-0.07 = 704-7) Lab Interpretation Abnormal (test code = 15941-3) [facility] 07:28:14 Test Item Value Reference Range Interpretation Comments PH (test code = 2) 7.35-7.45 PCO2 (test code = See_Comment [Automate d message] 8621297853) The system [employer] generated this result transmit britney reference range : 35 - 45 mmHg. The reference range was not used to interpret this result as normal/abnormal . PO2 (test code = See_Comment H [Automated message] 1134352135) The system [employer] generated this result transmit britney reference range : 80 - 100 mmHg. The reference range was not used to interpret this result as normal/abnormal . HCO3 (test code = See_Comment [Automate d message] 9203075886) The system [employer] generated this result transmit britney reference range : 22 - 26 mEq/L. The reference range was not used to interpret this result as normal/abnormal . BE (test code = See_Comment [Automated message] 6581830025) The system [employer] generated this result transmit britney reference range : -3.0 - 3.0 mEq/ L. The reference r nicholas was not used to interpret this result as normal/abnormal . THB (test code = 13.1 g/dL 12.0-16.0 6228606654) %O2HB (test code = 98.7 % 94.0-99.0 2723916270) %COHB ART (test code = 0.4 % 0.0-1.5 8190385945) %METHB ART (test code = 0.0 % 0.4-1.5 L 1019414322) VOL%O2 ART (test code = 18.5 % 15.0-23.0 QUES 7736398488) NA (test code = 138 mmol/L 135-145 7954959968) K+ (test code = 5.0 mmol/L 3.5-5.0 1911089540) AC CA IONZ (test code = 4.50 mg/dL 4.50-5.30 3566027540) GLUCOSE (test code = 138 mg/dL 70-110 H 3951303505) Lab Interpretation Abnormal (test code = 35105-9) [facility]-15 07:28:14 Test Item Value Reference Range Interpretation Comments PH (test code = 2) 7.35-7.45 PCO2 (test code = See_Comment [Automate d message] 4680338000) The system [employer] generated this result transmit britney reference range : 35 - 45 mmHg. The reference range was not used to interpret this result as normal/abnormal . PO2 (test code = See_Comment H [Automated message] 2077605678) The system [employer] generated this result transmit britney reference range : 80 - 100 mmHg. The reference range was not used to interpret this result as normal/abnormal . HCO3 (test code = See_Comment [Automate d message] 3716368673) The system [employer] generated this result transmit britney reference range : 22 - 26 mEq/L. The reference range was not used to interpret this result as normal/abnormal . BE (test code = See_Comment [Automated message] 6972439693) The system [employer] generated this result transmit britney reference range : -3.0 - 3.0 mEq/ L. The reference r nicholas was not used to interpret this result as normal/abnormal . THB (test code = 13.1 g/dL 12.0-16.0 1241813580) %O2HB (test code = 98.7 % 94.0-99.0 6377767809) %COHB ART (test code = 0.4 % 0.0-1.5 0714113444) %METHB ART (test code = 0.0 % 0.4-1.5 L 3527140423) VOL%O2 ART (test code = 18.5 % 15.0-23.0 QUES 2573713317) NA (test code = 138 mmol/L 135-145 1211811857) K+ (test code = 5.0 mmol/L 3.5-5.0 7403240032) AC CA IONZ (test code = 4.50 mg/dL 4.50-5.30 5981920908) GLUCOSE (test code = 138 mg/dL 70-110 H 2532234069) Lab Interpretation Abnormal (test code = 90219-8) [facility] [id number] 00:00:00 Test Item Value Reference Range Interpretation Comments DEB SPECIES (test code = ) NEGATIVE G. VAGINALIS (test code = 14189) POSITIVE T. VAGINALIS (test code = 87564) NEGATIVE VAGINAL PATHOGENS DNA [id number] 00:00:00 Test Item Value Reference Range Interpretation Comments DEB SPECIES (test code = 93712) NEGATIVE G. VAGINALIS (test code = 74043) POSITIVE T. VAGINALIS (test code = 82004) NEGATIVE GC AND CHLAMYDIA, AMPLIFIED, [id number] 00:00:00 Test Item Value Reference Range Interpretation Comments GONORRHEA, NAAT (test code = 78625) NEGATIVE CHLAMYDIA, NAAT (test code = 82600) NEGATIVE GC AND CHLAMYDIA, AMPLIFIED, [id number] 00:00:00 Test Item Value Reference Range Interpretation Comments GONORRHEA, NAAT (test code = 99385) NEGATIVE CHLAMYDIA, NAAT (test code = 09499) NEGATIVE HIV AB/AG COMBO RFLX [id number] 00:00:00 Test Item Value Reference Range Interpretation Comments HIV 1/2 4TH GEN, RFLX CONF (test NON-REACTIVE code = 3514) HIV AB/AG COMBO RFLX [id number] 00:00:00 Test Item Value Reference Range Interpretation Comments HIV 1/2 4TH GEN, RFLX CONF (test NON-REACTIVE code = 3514) [id number] 00:00:00 Test Item Value Reference Range Interpretation Comments RPR RESULT (test code = NON-REACTIVE 3501) RPR TITER (test code = 3500) NOT INDIC. TITER [id number] 00:00:00 Test Item Value Reference Range Interpretation Comments RPR RESULT (test code = NON-REACTIVE 3501) RPR TITER (test code = 3500) NOT INDIC. TITER [id number] 00:00:00 Test Item Value Reference Range Interpretation Comments RPR RESULT (test code = NON-REACTIVE 3501) RPR TITER (test code = 3500) NOT INDIC. TITER
[2022-07-21 20:43] LABS: Urine Blood Trace-intact (Negative); Urine Glucose Negative (Negative); Urine Protein Negative (Negative)
[2022-07-21] MEDS ORDERED: METHOCARBAMOL 1,000 MG/10 ML VIAL IV ONE (21:31)
[2022-07-21] MEDS ORDERED: NA CHLORIDE 0.9% 100 ML IV ONE (21:31)
[2022-07-21] MEDS ORDERED: MORPHINE 2 MG/ML SYR ONE (21:32)
--- NOTE | 2022-07-21 21:32 | RAD REPORT ---
EXAM DESCRIPTION: RAD - Chest Single View - 07/21/2022 9:10 pm CLINICAL HISTORY: SOB COMPARISON: Chest Single View dated 06/17/2022; Chest Single View dated 04/02/2022; Chest Single View dated 12/30/2021; Chest Pa And Lat (2 Views) dated 12/20/2021hest Single View dated 06/17/2022; Chest Single View dated 04/02/2022; Chest Single View dated 12/30/2021; Chest Pa And Lat (2 Views) dated 12/02; Chest For Pe Angio dated 06/17/2022 FINDINGS: Lines: None. Lungs: Low lung volumes. Mild basilar opacities. Similar elevation of right hemidiaphragm . Pleural: No significant pleural effusions or pneumothorax. Cardiac: The heart size is within normal limits. Mediastinum: Within normal limits. Bones: No acute fractures. Other: None IMPRESSION: Low lung volumes and atelectasis. No significant change compared 06/17/2022.
[2022-07-21 21:53] LABS: Absolute Lymphocytes (CBC) 1.4 K/uL (0.7-4.9); Hematocrit 34.6 % (36.0-45.0); Lymphocytes % 9.3 % (15.3-44.8); MCV 80.7 fL (80-100); MPV 8.7 fL (7.6-11.3); RBC Red Blood Cell Count 4.28 M/uL (3.86-4.86)
[2022-07-21 22:15] LABS: ALT/SGPT 81 U/L (12-78); Albumin 3.3 g/dL (3.4-5.0); Alkaline Phosphatase 112 U/L (45-117); BUN Blood Urea Nitrogen 20 mg/dL (7-18); Bicarbonate 21 mmol/L (21-32); Bilirubin Total 0.2 mg/dL (0.2-1.0); Glomerular Filtration Rate 47 ml/min (=/>90); Glucose Level 150 mg/dL (74-106); NT PRO-BNP 383 pg/mL (<125); Protein, Total 7.1 g/dL (6.4-8.2); Sodium Level 137 mmol/L (136-145); Troponin High Sensitivity 14.9 pg/mL (<58.9)
[2022-07-21 22:19] LABS: AST/SGOT 49 U/L (15-37); Bilirubin Direct < 0.1 mg/dL (0-0.2); Magnesium 2.3 mg/dL (1.8-2.4); Potassium 3.8 mmol/L (3.5-5.1)
[2022-07-21] MEDS ORDERED: MORPHINE 15 MG IR TAB PO ONE (23:35)
--- NOTE | 2022-07-21 23:51 | EDPHYS ---
Physician Documentation [facility] Name: Nancie Ordonez Age: 51 yrs Sex: Female : 1970 Arrival Date: 07/21/2022 Time: 20:01 Bed 20 Private MD: Bay Atkinson ED Physician Doris Eduardo HPI: 07/21 21:09 This 51 yrs old Black Female presents to ER via Ambulatory with complaints of Chest sd2 Tightness, Shortness Of Breath, Back Pain. 21:09 51 yo F presents with CC of chest tightness and SOB that started today. Pt reports sd2 shortness of breath with walking and exertion. Also reports associated lightheadedness. Denies chest pain or prior cardiac history but states she has had a cardiac biopsy in the past. Also reports neck and back pain after having a procedure done with her physician yesterday for the first time with injections in her neck and nerves per her report. She reports she spoke with the physician's office today for her procedure and they told her she would be sore. She did take Celebrex at home and 2 BC powder without having any kind of reaction although she states she has an NSAID allergy. . Historical: - Allergies: 20:14 Ibuprofen; kr3 20:14 Naproxen; kr3 - PMHx: 20:14 Hypertension; Gout; GERD; Arthritis; kr3 20:17 Pneumonia; kr3 - PSHx: 20:14 Right arm injury; Neck sx; hernia repair; section; kr3 - Immunization history:: Adult Immunizations not up to date. - Social history:: Smoking status: Patient/guardian denies using tobacco, the patient reports quitting approximately 30 years ago. ROS: 21:09 Constitutional: Negative for fever, chills, and weight loss, Eyes: Negative for injury, sd2 pain, redness, and discharge. 21:09 Abdomen/GI: Negative for abdominal pain, nausea, vomiting, diarrhea. Back: Negative for injury. Positive for pain. : Negative for dysuria, urinary frequency, hesitancy, urgency and hematuria. MS/Extremity: Negative for injury and deformity, Skin: Negative for injury, rash, and discoloration, Neuro: Negative for headache, numbness and tingling. Positive for lightheadedness. 21:09 Cardiovascular: Positive for chest pain, Negative for edema, orthopnea. 21:09 Respiratory: Positive for dyspnea on exertion, shortness of breath, Negative for cough, orthopnea, sputum production, wheezing. Exam: 21:09 Constitutional: This is a well developed, well nourished patient who is awake, alert, sd2 and in no acute distress. Head/Face: Normocephalic, atraumatic. Eyes: EOMI, normal conjunctiva bilaterally Chest/axilla: Normal chest wall appearance and motion. Nontender with no deformity. Cardiovascular: Regular rate and rhythm with a normal S1 and S2. No gallops, murmurs, or rubs. 2+ distal pulses. Respiratory: Lungs have equal breath sounds bilaterally, clear to auscultation and percussion. No rales, rhonchi or wheezes noted. No increased work of breathing, no retractions or nasal flaring. Abdomen/GI: Soft, non-tender, with normal bowel sounds. No guarding or rebound. No evidence of tenderness throughout. Back: No spinal tenderness. No costovertebral tenderness. Full range of motion. Mild cervical paraspinal tenderness bilaterally and TTP along bilateral trapezius areas. Skin: Warm, dry with normal turgor. Normal color with no rashes, no lesions, and no evidence of cellulitis. MS/ Extremity: Pulses equal, no cyanosis. Neurovascular intact. Full, normal range of motion. Ambulatory without difficulty. Neuro: Awake and alert, GCS 15, oriented to person, place, time, and situation. Cranial nerves II-XII grossly intact. Motor strength 5/5 in all extremities. Sensory grossly intact. Psych: Awake, alert, with orientation to person, place and time. Behavior, mood, and affect are within normal limits. 21:13 ECG was reviewed by the Attending Physician. NSR, rate 66, no STEMI criteria, numerous sd2 TWIs noted but unchanged from prior EKG on 06/17/22 Vital Signs: 20:08 BP 160 / 103; Pulse 72; Resp 26; Temp 98.4; Pulse Ox 99% on R/A; Weight 89.81 kg; kr3 Height 5 ft. 3 in. (160.02 cm); Pain 10/10; 22:53 BP 143 / 91; Pulse 65; Resp 17; Pulse Ox 100% on R/A; Pain 7/10; ll3 23:06 BP 143 / 91; Pulse 63; Resp 18; Pulse Ox 100% on R/A; Pain 7/10; ll3 07/22 00:19 BP 105 / 55; Pulse 69; Resp 18; Pulse Ox 100% on R/A; Pain 2/10; ll3 07/21 20:08 Body Mass Index 35.07 (89.81 kg, 160.02 cm) kr3 MDM: 07/21 20:27 Patient medically screened. sd2 21:09 Differential diagnosis: Differential diagnosis includes but is not limited to: ACS, sd2 DVT/PE, pneumothorax, dissection, musculoskeletal, anxiety, anemia, electrolyte abnormality, pneumonia, CHF, COPD among others. Data reviewed: vital signs, nurses notes. 23:47 HEART Score: History: Slightly Suspicious (0), ECG: Non specific repolarization sd2 disturbance / LBTB / PM (1), Age: > 45 and < 65 years (1), Risk Factors: 1 or 2 risk factors (1), Troponin: < or = 1 x Normal Limit (0), Total Score = 4. The patient was not given aspirin in the Emergency Department. Patient reports taking aspirin within the past 24 hours. The patient's deep vein thrombosis risk score was calculated as follows: Total Score: 0. This patient was found to be at low risk for a deep vein thrombosis by using the Well's assessment criteria. The patient's pulmonary embolism risk score was calculated as follows: Total Score: 0-2 points. This patient was found to be at low risk for a pulmonary embolism by using the Well's assessment criteria. Data reviewed: lab test result(s), EKG, radiologic studies. Counseling: I had a detailed discussion with the patient and/or guardian regarding: the historical points, exam findings, and any diagnostic results supporting the discharge/admit diagnosis, lab results, radiology results, the need for outpatient follow up, to return to the emergency department if symptoms worsen or persist or if there are any questions or concerns that arise at home. Medical screen evaluation completed. EMTALA emergency medical condition absent. ED course: Labs and imaging reviewed. Trop neg. EKG with no changes from previous. No actual CP. Pt not SOB currently. Reports her main concern is her back pain which initially improved after treatment. She also reports she had similar SOB after similar procedures on her back the next day. Possible side effect of her procedure. No significant risk factors for DVT or PE. Pt comfortable with plan for discharge with muscle relaxers for home and outpatient follow up. Verbalizes understanding of strict return precautions.. 07/21 20:44 Order name: Urine Dipstick-Ancillary; Complete Time: 20:46 EDMS 07/21 20:54 Order name: Urine --Ancillary (enter results); Complete Time: 21:48 wm 07/21 20:55 Order name: Basic Metabolic Panel; Complete Time: 22:46 sd2 07/21 20:55 Order name: CBC with Diff; Complete Time: 22:46 sd2 07/21 20:55 Order name: LFT's; Complete Time: 22:46 sd2 07/21 20:55 Order name: Magnesium; Complete Time: 22:46 sd2 07/21 20:55 Order name: NT PRO-BNP; Complete Time: 22:46 sd2 07/21 20:55 Order name: Troponin HS; Complete Time: 22:46 sd2 07/21 20:55 Order name: XRAY Chest (1 view); Complete Time: 21:48 sd2 07/21 20:55 Order name: EKG; Complete Time: 20:55 sd2 07/21 20:55 Order name: Cardiac monitoring; Complete Time: 21:09 sd2 07/21 20:55 Order name: EKG - Nurse/Tech; Complete Time: 21:09 sd2 07/21 20:55 Order name: IV Saline Lock; Complete Time: 22:06 sd2 07/21 20:55 Order name: Labs collected and sent; Complete Time: 22:07 sd2 07/21 20:55 Order name: O2 Per Protocol; Complete Time: 21:09 sd2 07/21 20:55 Order name: O2 Sat Monitoring; Complete Time: 21:09 sd2 Administered Medications: 22:07 Drug: Methocarbamol 1 grams Route: IVPB; Infused Over: 1 hrs; Site: left hand; ll3 23:07 Follow up: Response: No adverse reaction; IV Status: Completed infusion; IV Intake: ll3 100ml 22:07 Drug: morphine 2 mg Route: IVP; Infused Over: 4 mins; Site: left hand; ll3 23:06 Follow up: BP 143 / 91; Pulse 63 bpm; Resp 18 bpm; Pulse Ox 100% RA; Pain 7/10 Adult; ll3 Response: No adverse reaction; Pain is decreased 23:36 Drug: morphine 15 mg Route: PO; ll3 07/22 00:20 Follow up: Response: No adverse reaction; Marked relief of symptoms; Pain is decreased ll3 Disposition Summary: 07/21/22 23:50 Discharge Ordered Location: Home sd2 Problem: new sd2 Symptoms: have improved sd2 Condition: Stable sd2 Diagnosis - Dyspnea, unspecified sd2 - Postprocedural neck pain sd2 Followup: sd2 - With: Bay Atkinson MD - When: 2 - 3 days - Reason: Recheck today's complaints, Continuance of care, Re-evaluation by your physician Discharge Instructions: - Discharge Summary Sheet sd2 - Shortness of Breath, Adult sd2 - Cervical Strain and Sprain Rehab-SportsMed sd2 Forms: - Medication Reconciliation Form sd2 - Thank You Letter sd2 - Antibiotic Education sd2 - Prescription Opioid Use sd2 Prescriptions: - tizanidine 2 mg Oral tablet - take 1 tablet by ORAL route every 8 hours As needed as needed; 15 tablet; sd2 Refills: 0, Product Selection Permitted Signatures: Dispatcher [employer] Marlene Bermudez RN RN ll3 Doris Eduardo MD MD sd2 Aissatou Allen RN RN kr3
--- NOTE | 2022-07-21 23:51 | ER ---
Nurse's Notes [facility] Name: Nancie Ordonez Age: 51 yrs Sex: Female : 1970 Arrival Date: 07/21/2022 Time: 20:01 Bed 20 Private MD: Bay Atkinson Diagnosis: Dyspnea, unspecified;Postprocedural neck pain Presentation: 07/21 20:08 Chief complaint: Patient states: when I walk a short distance I am out of breath, my kr3 chest is tight and my back hurts from the top to the tail bone, I am very lightheaded when I walk. I had a shot in my neck yesterday to help with pain. Coronavirus screen: Vaccine status: Patient reports receiving the 2nd dose of the covid vaccine. Client denies travel out of the [place] in the last 14 days. Ebola Screen: Patient denies exposure to infectious person. Patient denies travel to an Ebola-affected area in the 21 days before illness onset. Initial Sepsis Screen: Does the patient meet any 2 criteria? No. Patient's initial sepsis screen is negative. Does the patient have a suspected source of infection? No. Patient's initial sepsis screen is negative. Risk Assessment: Do you want to hurt yourself or someone else? Patient reports no desire to harm self or others. Onset of symptoms was July 21, 2022. 20:08 Method Of Arrival: Ambulatory kr3 20:08 Acuity: DEEPALI 3 kr3 20:13 Chief complaint:. kr3 Triage Assessment: 20:16 General: Appears distressed, uncomfortable, Behavior is cooperative, anxious, crying. kr3 Pain: Complains of pain in back. Cardiovascular: Reports lightheadedness, shortness of breath. Historical: - Allergies: 20:14 Ibuprofen; kr3 20:14 Naproxen; kr3 - PMHx: 20:14 Hypertension; Gout; GERD; Arthritis; kr3 20:17 Pneumonia; kr3 - PSHx: 20:14 Right arm injury; Neck sx; hernia repair; section; kr3 - Immunization history:: Adult Immunizations not up to date. - Social history:: Smoking status: Patient/guardian denies using tobacco, the patient reports quitting approximately 30 years ago. Screenin/19 00:19 Abuse screen: Denies threats or abuse. Denies injuries from another. Nutritional ll3 screening: No deficits noted. Tuberculosis screening: No symptoms or risk factors identified. Fall Risk None identified. Assessment: 07/21 22:57 Reassessment: Patient and/or family updated on plan of care and expected duration. Pain ll3 level reassessed. Patient is alert, oriented x 3, equal unlabored respirations, skin warm/dry/pink. States pain is 7/10 Patient states symptoms have improved. 07/22 00:19 Reassessment: Patient and/or family updated on plan of care and expected duration. Pain ll3 level reassessed. Patient is alert, oriented x 3, equal unlabored respirations, skin warm/dry/pink. States pain is 2/10 Patient states symptoms have improved. Vital Signs: 07/21 20:08 BP 160 / 103; Pulse 72; Resp 26; Temp 98.4; Pulse Ox 99% on R/A; Weight 89.81 kg; kr3 Height 5 ft. 3 in. (160.02 cm); Pain 10/10; 22:53 BP 143 / 91; Pulse 65; Resp 17; Pulse Ox 100% on R/A; Pain 7/10; ll3 23:06 BP 143 / 91; Pulse 63; Resp 18; Pulse Ox 100% on R/A; Pain 7/10; ll3 07/22 00:19 BP 105 / 55; Pulse 69; Resp 18; Pulse Ox 100% on R/A; Pain 2/10; ll3 07/21 20:08 Body Mass Index 35.07 (89.81 kg, 160.02 cm) kr3 ED Course: 07/21 20:01 Patient arrived in ED. mr 20:01 Bay Atkinson MD is Private Physician. mr 20:13 Triage completed. kr3 20:17 Arm band placed on right wrist. kr3 20:27 Doris Eduardo MD is Attending Physician. sd2 20:44 Patient has correct armband on for positive identification. Placed in gown. Bed in low mm9 position. Call light in reach. Adult w/ patient. Warm blanket given. laboratory monitor on. Pulse ox on. NIBP on. 20:44 Urine collected: clean catch specimen, cloudy. mm9 21:10 EKG done, by ED staff, reviewed by Doris Eduardo MD. mm9 21:12 XRAY Chest (1 view) In Process Unspecified. EDMS 21:40 Initial lab(s) drawn, by me, sent to lab. Missed attempt(s): 20 gauge in left bb antecubital area. Bleeding controlled, band aid applied, catheter tip intact. 21:56 Inserted saline lock: 22 gauge in left wrist, using aseptic technique. bb 23:50 Bay Atkinson MD is Referral Physician. sd2 07/22 00:19 No provider procedures requiring assistance completed. IV discontinued, intact, ll3 bleeding controlled, No redness/swelling at site. Pressure dressing applied. Patient maintains SpO2 saturation greater than 95% on room air. Administered Medications: 07/21 22:07 Drug: Methocarbamol 1 grams Route: IVPB; Infused Over: 1 hrs; Site: left hand; ll3 23:07 Follow up: Response: No adverse reaction; IV Status: Completed infusion; IV Intake: ll3 100ml 22:07 Drug: morphine 2 mg Route: IVP; Infused Over: 4 mins; Site: left hand; ll3 23:06 Follow up: BP 143 / 91; Pulse 63 bpm; Resp 18 bpm; Pulse Ox 100% RA; Pain 7/10 Adult; ll3 Response: No adverse reaction; Pain is decreased 23:36 Drug: morphine 15 mg Route: PO; ll3 07/22 00:20 Follow up: Response: No adverse reaction; Marked relief of symptoms; Pain is decreased ll3 Medication: 00:19 VIS not applicable for this client. ll3 Intake: 07/21 23:07 IV: 100ml; Total: 100ml. ll3 Outcome: 23:50 Discharge ordered by . sd2 07/22 00:19 Discharged to home ambulatory, with significant other. ll3 Condition: stable Discharge instructions given to patient, significant other, Instructed on discharge instructions, follow up and referral plans. medication usage, Demonstrated understanding of instructions, follow-up care, medications, Prescriptions given X 1. 00:21 Patient left the ED. ll3 Signatures: Dispatcher [employer] EDFL Haylie SextonEmily RN RN bb Marlene Olivas RN RN bob3 Doris Eduardo MD MD sd2 Aissatou Allen RN RN [email or web address] Radha Garzon mm9 Corrections: (The following items were deleted from the chart) 07/21 20:14 20:08 Chief complaint: Patient states: when I walk a short distance I am out of breath, kr3 my chest is tight and my back hurts from the top to the tail bone, I am very lightheaded when I walk kr3 07/22 00:20 00:19 BP 105 / 55; Pulse 69bpm; Resp 18bpm; Pulse Ox 100% RA; ll3 ll3
[2022-07-22 00:42] VITALS: TEMP 98.4
[2022-07-22 00:47] VITALS: O2SAT 100
[2022-07-22 00:50] VITALS: BP 105/55
--- NOTE | 2022-07-22 19:11 | EKG ---
Test Date: 2022-07-21 Test Time: 20:59:34 Document Image Technician: DARSHANA MEASUREMENT RESULTS: Intervals: Rate: 66 OR: 120 QRSD: 92 QT: 394 QTc: 413 [place]: P: 66 OR: 120 QRS: 70 T: 248 INTERPRETIVE STATEMENTS: Normal sinus rhythm with sinus arrhythmia Possible Left atrial enlargement ST & T wave abnormality, consider inferolateral ischemia Abnormal ECG Compared to ECG 06/17/2022 19:01:06 ST (T wave) deviation now present T-wave abnormality no longer present Prolonged QT interval no longer present Possible ischemia still present Electronically Signed On 07-22-22 19:10:16 [employer] by Drake Blakely
== END 2022-07-22 00:21 | disposition home or self-care (01) ==
LOC: ER 19:57
DX: R06.00 Dyspnea, unspecified (principal); G89.18 Other acute postprocedural pain; I10 Essential (primary) hypertension; Z88.6 Allergy status to analgesic agent
CPT/HCPCS: 96365; 93005; 85025; 80048; 36415; 83735; 81025; 80076; 81003; 84484; 83880; 71045; 96375; 99285; J2270; J2800

== ENCOUNTER 2023-05-23 19:40 | Observation (INO) | payer OTHER ==
--- OUTSIDE RECORDS SUMMARY | 2023-05-23 20:08 | XMS REPORT | Continuity of Care Document ---
:1970 Author Organization [facility] t Address [address] [place] [address] [place] [id number] Care Team Providers Name Role Phone NONE, NONE Primary Care Physician Unavailable DR MANAN WONG Attending Clinician Unavailable DR MANAN WONG Attending Clinician Unavailable DR CLYDE LEGGETT Attending Clinician Unavailable DR LINDSEY CAMERON Attending Clinician Unavailable Doctor Unassigned, Sarah Ann Attending Clinician Unavailable DR LÁZARO MUNIZ Attending Clinician Unavailable OREN TOVAR Attending Clinician Unavailable Oren Tovar MD Attending Clinician ZELDA OLSEN Attending Clinician Unavailable Yuniel Mccray MD Attending Clinician Zelda Olsen MD Attending Clinician ANAYA KLINE Attending Clinician Unavailable Umm Manzanares MD Attending Clinician Ced Hernández MD Attending Clinician Jaden Siddiqui ENP Attending Clinician DR LORAINE MELO Attending Clinician Unavailable DR CHRISTIAN VITAL Attending Clinician Unavailable GABRIEL GARCIA Attending Clinician Unavailable Gabriel Garcia MD Attending Clinician WILMAR MADISON Attending Clinician Unavailable WILMAR MADISON Attending Clinician Unavailable 1, [facility] Bed Attending Clinician Unavailable Wilmar Madison MD Attending Clinician [place], [facility] Test Attending Clinician Unavailable Sobeida Bagley Attending Clinician BRO ANN Attending Clinician Unavailable Bro Mejia Attending Clinician JADEN SIDDIQUI Attending Clinician Unavailable MAI DEL ROSARIO Attending Clinician Unavailable Mai Del Rosario DO Attending Clinician JACKLYN GUILLEN Attending Clinician Unavailable Jacklyn Guillen MD Attending Clinician Marjan Heart RN Attending Clinician GELY HERNANDEZ Attending Clinician Unavailable Gely Hernandez MD Attending Clinician WILFRID PEARSON Attending Clinician Unavailable Maury Brush MD Attending Clinician Wilfrid Pearson DO Attending Clinician Any Waters RN Attending Clinician Unavailable FLASH KIMBALL Attending Clinician Unavailable Blanca Talavera MD Attending Clinician Josie YI, Samir Attending Clinician Faraz Parada MD Attending Clinician Flash Kimball MD Attending Clinician GABRIEL SHAIKH Attending Clinician Unavailable GABRIEL SHAIKH Attending Clinician Unavailable DR MANAN WONG Admitting Clinician Unavailable BETSEY, DR TANG Admitting Clinician Unavailable DR LINDSEY CAMERON Admitting Clinician Unavailable DR LÁZARO MUNIZ Admitting Clinician Unavailable OREN TOVAR Admitting Clinician Unavailable ZELDA OLSEN Admitting Clinician Unavailable Zelda Olsen MD Admitting Clinician ANAYA KLINE Admitting Clinician Unavailable DR LORAINE MELO Admitting Clinician Unavailable DR CHRISTIAN VITAL Admitting Clinician Unavailable GABRIEL GARCIA Admitting Clinician Unavailable BRO ANN Admitting Clinician Unavailable JADEN SIDDIQUI Admitting Clinician Unavailable MAI DEL ROSARIO Admitting Clinician Unavailable JACKLYN GUILLEN Admitting Clinician Unavailable GELY HERNANDEZ Admitting Clinician Unavailable Gely Hernandez MD Admitting Clinician TEQWIMWILFRID RAMEY Admitting Clinician Unavailable [place] Wilfrid JIMENEZ Admitting Clinician FARAZ PARADA Admitting Clinician Unavailable Faraz Parada MD Admitting Clinician Payers Payer Name Policy Type Policy Number Effective Date Expiration Date S eda 0111 [id number] 2023 00:00:00 1014 [id number] 1959 00:00:00 Problems Condition Condition Condition Status Onset Resolution Last Treating Co mments Source Name Details Category Date Date Treatment Clinician Date Chest Chest Disease Active Univers pain, pain, 3-05 ity [place] unspecif[place] d type 00 [facility] SOB SOB Disease Active 2021-09 Univers (shortness (shortness 0-23 it y of of breath[place] breath[place] Chest pain Chest pain Disease Active 2021-09 U nivers 0-22 ity of 00:00: [place] 00 Medical Branch Transient Transient Disease Active Uni vers alteration alteration 6-25 it y of of of 00:00: [place] awareness awareness 00 [facility] Branch Transient Transient Disease Active Uni vers alteration alteration 6-25 it y of of of 00:00: [place] awareness awareness 00 [facility] Branch Gastric Gastric Disease Active Univers ulcer ulcer 6-22 ity of 00:00: [place] 00 Medical Branch Pneumonia Pneumonia Disease Active Uni vers 4-04 ity of 00:00: [place] [facility] Acute Acute Disease Active Univers asthma asthma 4-02 ity of exacerbati exacerbati [place] Sepsis Sepsis Disease Active Univers 3-09 ity of 00:00: [place] [facility] Morbid Morbid Disease Active Univers obesity obesity 2-14 [place] of with body with body [place] mass index mass index 00 Me dical of of Branch 40.0-49.9 40.0-49.9 Obesity Obesity Disease Active Univers (BMI (BMI 2-12 ity of 30-39.9) 30-39.9) 00:00: [place] [facility] Acute Acute Disease Active Univers hypoxemic hypoxemic 2-12 ity of respirator respirator [place] y failure y failure 00 [facility] Branch Chronic Chronic Disease Active Univers pain due pain due 2-04 ity of to injury to injury 00:[place] Dyslipidem Dyslipidem Disease Active U sofie ia ia 2-04 ity of 00:00: [place] [facility] Gastro-eso Gastro-eso Disease Active U [...] cervical 2-04 ity of spine spine 00:00: [place] [facility] Depo-Prove Depo-Prove Disease Active U nivers ra ra 4-13 ity of contracept contracept 00:[place] lloyd status lloyd status 00 [facility] Eczema Eczema Disease Active Univers 8-13 ity of 00:00: [place] [facility] Essential Essential Disease Active Uni vers hypertensi hypertensi 8-13 it y of on on 00:00: [place] [facility] Back pain Back pain Disease Active Uni vers 2-06 ity of 00:00: [place] 00 Medical Branch Allergies, Adverse Reactions, Alerts Allergy Allergy Status Severity Reaction(s) Onset Inactive Treating Comm ents Source Name Type Date Date Clinician IBUPROFE DRUG Active Other-Cmnt Univ ers N INGREDI 4- ity of 00:00: [place] 00 Medical Branch Ibuprofe Propensi Active Other - See ulcer U nivers n ty to comments 12-10 ity of adverse 00:00: [place] reaction 00 Medical s Branch IBUPROFE DRUG Active SOB 2021-09 Univers N-ACETAM 0-23 ity of INOPHEN 00:00: [place] 00 Medical Branch Ibuprofe Propensi Active Shortness of 2021-09 Univers n-Acetam ty to Breath 0-23 ity of inophen adverse 00:00: [place] reaction 00 Medical s Branch Naproxen Propensi Active - Oral ty to 5- adverse 00:00: reaction 00 to drug SEAFOOD/ Food Active High Anaphylaxis Uni vers FISH 4- ity of 00:00: [place] 00 Medical Branch Seafood/ Food Active Anaphylaxis 2021- Pts Uni vers Fish Allergy 4- tongue [...] 00 to drug naproxen DA Active SV 2018-0 [facility] 2-27 [place] 00:00: Orthope 00 dic [...] Univer s INGREDI 03-11 ity of 00:00: [place] 00 [facility] Branch Naproxen DA Active Unknown [facility] Ibuprofe DA Active Unknown [facility] Social History Social Habit Start Date Stop Date Quantity Comments Source History SDOH University o f Alcohol Std Drinks [place] [facility] History SDOH University o f Alcohol Binge [place] [facility] History SDOH University o f Alcohol Frequency [facility] Exposure to 2022-11-30 2022-12-10 Not sure University SARS-CoV-2 (event) 00:00:00 19:00:00 [facility] Alcohol intake 2022-11-05 2022-11-05 Current drinker Unive rsity of 00:00:00 00:00:[address] [facility] (finding) [place] Tobacco Comment 2022-07-25 2022-07-25 30 years ago Univers ity of 00:00:00 00:00:00 [facility] Cigarettes smoked 2022-07-25 2022-07-25 Univers ity of current (pack per 00:00:00 00:00:00 [facility] ) - Reported Branch Cigarette 2022-07-25 2022-07-25 University of pack-years 00:00:00 00:00:00 [facility] Tobacco use and 2022-07-25 2022-07-25 Smokeless tobacco Un iversity of exposure 00:00:00 00:00:00 non-user [facility] Education 2021-10-15 2021-10-15 12 University of 00:00:00 00:00:00 [facility] Alcohol Comment 2016-12-14 2016-12-14 infrequent - Univers ity of 00:00:00 00:00:00 family parties, [place] Med ical wine, 12 oz/time Branch History of tobacco 2001-12-14 Cigarette Smoker University of use 00:00:00 [facility] Sex Assigned At [address] [facility] y of 00:00:00 00:00:00 [facility] Smoking Status Start Date Stop Date Source Ex-smoker 2022-07-25 00:00:00 2022-07-25 00:00:00 [facility] Medications Ordered Filled Start Stop Current Ordering Indication Dosage Frequency Signature Comments Components Source Medication Medication Date Date Medication? Clinician (SIG) Name Name ondansetron 2022-0 2022- No 4mg 4 mg, Univ ers (ZOFRAN-ODT 4-06 06-10 Oral, ity of ) 02:30: 01:43 ONCE, 1 [place] disintegrat 00 :00 dose, On Medi dayna ing tablet 12/10/22 Bra nch 4 mg at 2129, SE predniSONE 2022-0 2022- No 40mg 40 mg, Univ ers (DELTASONE) 4-06 06-10 Oral, ity of tablet 40 01:45: 01:43 ONCE, 1 [place] mg 00 :00 dose, On Medical 12/10/22 Branch at 2044, SE HYDROcodone 2022-2022- No 1{tbl} 1 tablet, Univers -acetaminop 12-11-10 Oral, ity of hen (NORCO 01:45: 01:43 ONCE, 1 José Miguel as 5) 5-325 mg 00 :00 dose, On Medi dayna tablet 1 12/10/22 Branc h tablet at 2044, SE ondansetron 2022-0 Yes [id number] 4mg Take 1 Univers 4 mg 12-10 9104 tablet by ity of disintegrat 00:00: mouth [place] ing tablet 00 every 4 Medica l (four) Branch hours as needed for Nausea and Vomiting (N/V). ondansetron 2022-0 Yes [id number] 4mg Take 1 Univers 4 mg 4- 9104 tablet by ity of disintegrat 00:00: mouth [place] ing tablet 00 every 4 Medica l (four) Branch hours as needed for Nausea and Vomiting (N/V). predniSONE 2022-0 2022- No [id number] 40mg Take 2 Univers 20 mg 12-1015 9104 tablets by ity of tablet 00:00: 04:59 mouth in [place] 00 :[address] [facility] Branch for 5 days. carvediloL 2023-0 Yes 3.125mg 3.125 mg, Univers (COREG) 3-05 Oral, BID ity of tablet 23:00: MEALS, [place] 3.125 mg 00 First dose Medic al on [facility] 11/05/22 at 1700, Until Discontinu ed, Routine enoxaparin 2023-0 Yes 40mg 40 mg, Unive rs (LOVENOX) 3-05 Subcutaneo ity of injection 23:00: [place]ILY, [place] 40 mg 00 First dose Medical on [facility] 11/05/22 at 1700, Until Discontinu ed, Routine hydrOXYzine 2023-0 Yes 25mg Take 1 Univ ers 25 mg 3-05 tablet by ity of tablet 17:13: mouth. [address] lisinopriL 2023-0 Yes 20mg Take 1 Unive rs 20 mg 3-05 tablet by ity of tablet 17:13: mouth in [place] [address] the Medical morning. Branch gabapentin 2023-0 Yes 100mg Take 1 Univ ers 100 mg 3-05 capsule by ity of capsule 17:13: mouth in [address] morning Branch and 1 capsule in the evening. acetaminoph 2023-0 Yes 1{tbl} Take 1 Un guillermina en-codeine 3-05 tablet by ity of (TYLENOL-CO 17:13: mouth [place] DEINE #4) 13 every 4 Medical 300-60 mg (four) Branch tablet hours as needed for Pain. celecoxib 2023-0 Yes 50mg Take 1 Univer s (CELEBREX) 3-05 capsule by ity of 50 mg 17:13: mouth in [place] capsule the Medical morning. Branch hydrOXYzine 2023-0 Yes 25mg Take 1 Univ ers 25 mg 3-05 tablet by ity of tablet 17:13: mouth. [address] lisinopriL 2023-0 Yes 20mg Take 1 Unive rs 20 mg 3-05 tablet by ity of tablet 17:13: mouth in [place] [address] the Medical morning. Branch gabapentin 2023-0 Yes 100mg Take 1 Univ ers 100 mg 3-05 capsule by ity of capsule 17:13: mouth in [place] [address] the Medical morning Branch and 1 capsule in the evening. acetaminoph 2023-0 Yes 1{tbl} Take 1 Un guillermina en-codeine 3-05 tablet by ity of (TYLENOL-CO 17:13: mouth [place] DEINE #4) 13 every 4 Medical 300-60 mg (four) Branch tablet hours as needed for Pain. celecoxib 2023-0 Yes 50mg Take 1 Univer s (CELEBREX) 3-05 capsule by ity of 50 mg 17:13: mouth in [place] capsule 13 the Medical morning. Branch hydrOXYzine 2023-0 Yes 25mg Take 1 Univ ers 25 mg 3-05 tablet by ity of tablet 17:13: mouth. [place] [address] Medical Branch lisinopriL 2023-0 Yes 20mg Take 1 Unive rs 20 mg 3-05 tablet by ity of tablet 17:13: mouth in [place] [address] the Medical morning. Branch gabapentin 2023-0 Yes 100mg Take 1 Univ ers 100 mg 3-05 capsule by ity of capsule 17:13: mouth in [place] [address] the Medical morning Branch and 1 capsule in the evening. acetaminoph 2023-0 Yes 1{tbl} Take 1 Un guillermina en-codeine 3-05 tablet by ity of (TYLENOL-CO 17:13: mouth [place] DEINE #4) 13 every 4 Medical 300-60 mg (four) Branch tablet hours as needed for Pain. celecoxib 2023-0 Yes 50mg Take 1 Univer s (CELEBREX) 3-05 capsule by ity of 50 mg 17:13: mouth in [place] capsule 13 the Medical morning. Branch hydrOXYzine 2023-0 Yes 25mg Take 1 Univ ers 25 mg 3-05 tablet by ity of tablet 17:13: mouth. [address] Branch lisinopriL 2023-0 Yes 20mg Take 1 Unive rs 20 mg 3-05 tablet by ity of tablet 17:13: mouth in [place] [address] the Medical morning. Branch gabapentin 2023-0 Yes 100mg Take 1 Univ ers 100 mg 3-05 capsule by ity of capsule 17:13: mouth in [place] [address] the Medical morning Branch and 1 capsule in the evening. acetaminoph 2023-0 Yes 1{tbl} Take 1 Un guillermina en-codeine 3-05 tablet by ity of (TYLENOL-CO 17:13: mouth [place] DEINE #4) 13 every 4 Medical 300-60 mg (four) Branch tablet hours as needed for Pain. celecoxib 2023-0 Yes 50mg Take 1 Univer s (CELEBREX) 11-05 capsule by ity of 50 mg 17:13: mouth in [place] capsule 13 the Medical morning. [place] amLODIPine Yes 10mg 10 mg, Unive rs (NORVASC) 11-05 Oral, ity of tablet 10 15:00: DAILY, [place] mg 00 First dose Medical on [facility] 11/05/22 at 0900, Until Discontinu ed, Routine metoprolol 2022- No 25mg 25 mg, Univ ers tartrate 11-05 Oral, TID, ity of (LOPRESSOR) 14:00: 17:41 First dose [place] tablet 25 00 :07 on [place] Medical mg 11/05/22 at Branch 0800, Until Discontinu ed, Routine traMADoL 2022- No 50mg 50 mg, Univer s (ULTRAM) 11-05 Oral, ity of tablet 50 13:36: 13:35 Q6HPRN, [place] mg 11 :11 Starting Medical on [facility] 11/05/22 at 0736, Until Sun11/07/22 at 0735, Routine, Pain (scale 7-10) ondansetron No 4mg 4 mg, Slow Univers (ZOFRAN 11-05 IV Push, ity of (PF)) 13:35: 13:34 Q6HPRN, [place] injection 4 52 :52 Starting Medi dayna mg on [facility] 11/05/22 at 0735, Until Sun11/07/22 at 0734, Routine, Nausea and Vomiting (N/V) acetaminoph Yes 650mg 650 mg, Un guillermina en 11-05 Oral, ity of (TYLENOL) 11:26: Q6HPRN, [place] tablet 650 43 Starting Medic al mg on [facility] 11/05/22 at 0526, Until Discontinu ed, Routine, Pain (scale 1-3) zolpidem Yes 10mg 10 mg, Univers (AMBIEN) 11-05 Oral, ity of tablet 10 11:25: QHSPRN, [place] mg 41 Starting Medical on [facility] 11/05/22 at 0525, Until Discontinu ed, Routine, Insomnia ALPRAZolam Yes 1mg 1 mg, Univer s (XANAX) 11-05 Oral, ity of tablet 1 mg 11:25: TIDPRN, José Miguel as 00 Starting Medical on [place] Branch 11/05/22 at 0525, Until Discontinu ed, Routine, Anxiety morpHINE (4 2022- No 4mg 4 mg, Slow Univers mg/mL) 11-05 IV Push, ity of injection 4 10:45: 10:08 ONCE, 1 [place] mg 00 :00 dose, On Medical [place] 11/05/22 Branch at 0445, SE proMETHazin 2022- No 12.5mg 12.5 mg, Univers e 11-05 IV ity of (PHENERGAN) 09:15: 10:05 Piggyback, [place] 12.5 mg in 00 :00 at 200 Medical NS 50 mL IV mL/hr Branch piggyback Administer (CNR) over 15 Minutes, ONCE, 1 dose, On [place] 11/05/22 at 0315, SE iopamidol 2022- No [id number] 85mL 85 mL, U nivers (ISOVUE 11-05 Intravenou ity o f 370-500 mL) 08:55: 09:15 s, ONCE, 1 [place] injection 00 :00 dose, On Medica l 85 mL [place] 11/05/22 Branch at 0315, Routine ondansetron 2022- No 4mg 4 mg, Slow Univers (ZOFRAN 11-05 IV Push, ity of (PF)) 05:00: 07:12 ONCE, 1 [place] injection 4 00 :00 dose, On Medi dayna mg [facility] 11/04/22 Branch at 2300, SE morpHINE (4 2022- No 4mg 4 mg, Slow Univers mg/mL) 11-05 IV Push, ity of injection 4 05:00: 07:12 ONCE, 1 [place] mg 00 :00 dose, On Medical [facility] 11/04/22 Branch at 2300, SE carvediloL 2022- No [id number] 3.125mg Take 1 Univers 3.125 mg 11-05 tablet by ity o f tablet 00:00: 04:59 mouth in [place] 00 :[address] [facility] and 1 tablet in the evening. Take with meals. Do all this for 30 days. carvediloL 2023-0 2023- No [id number] 3.125mg Take 1 Univers 3.125 mg 3-05 04-05 tablet by chastity o f tablet 00:00: 04:59 mouth in [place] 00 :[address] [facility] and 1 tablet in the evening. Take with meals. Do all this for 30 days. TAKE 1 2023-0 No 20 TABLET 123 DAILY. 00:00: 00 TAKE 1 2023-0 No 10 TABLET 19 DAILY. 00:00: 00 METHOCARBAM 2023-0 No 500MG 09-21 00:00: 00 TAKE 1 2023-0 No 10 TABLET 19 DAILY. 00:00: 00 METHOCARBAM 2023-0 No 500MG 09-21 00:00: 00 LISINOPRIL 2023-0 No 10MG 09-21 00:00: 00 TAKE 1 3-0 No TABLET BY 1-19 MOUTH EVERY 00:00: DAY 00 DICLOFEN 2023-0 No SOD 100MG 1-18 ER 00:00: 00 DICLOFEN 2023-0 No SOD 100MG 1-18 ER 00:00: 00 TAKE 1 2023-0 No TABLET BY 1-18 MOUTH EVERY 00:00: DAY FOR 90 00 DAYS FAMOTIDINE 2023-0 No 40MG 09-15 00:00: 00 SPIRONOLACT 2023-0 No 25MG 09-15 00:00: 00 1 TABLET(S) 2023-0 No DAILY 09-15 EVENING 00:00: ORAL 00 TAKE 1 3-0 No TABLET BY 1-13 MOUTH EVERY 00:00: 8 HOURS 00 NEEDED ONDANSETRON 2023-0 No 4 4MG 09-15 00:00: 00 FAMOTIDINE 2023-0 No 40MG 09-15 00:00: 00 SPIRONOLACT 2023-0 No 25MG 09-15 00:00: 00 1 TABLET(S) 2023-0 No DAILY 09-15 EVENING 00:00: ORAL 00 TAKE 1 2023-0 No TABLET BY 1-13 MOUTH EVERY 00:00: 8 HOURS 00 NEEDED ONDANSETRON 2023-0 No 4MG 1-13 00:00: 00 TAKE 1 2023-0 No CAPSULE BY 1-07 MOUTH ONE 00:00: TIME PER 00 WEEK VITAMIN D3 2022-0 No 50,000IU 09-09 00:00: 00 TAKE 1 2022-0 No CAPSULE BY 1-07 MOUTH ONE 00:00: TIME PER 00 WEEK VITAMIN D3 2022-0 No 50,000IU 09-09 00:00: 00 TAKE 1 2021- No TABLET BY 2-29 MOUTH EVERY 00:00: DAY 00 TAKE 1 2021- No TABLET BY 2-29 MOUTH EVERY 00:00: DAY 00 TAKE 1 2021-09 No TABLET BY 2-26 MOUTH EVERY 00:00: 8 HOURS 00 TAKE 1 2021- No TABLET BY 2-26 MOUTH EVERY 00:00: 8 HOURS 00 TAKE 1 2021-09 No TABLET BY 2-22 MOUTH AT 00:00: BEDTIME 00 NEEDED FOR PAIN TAKE 2021-09 No TABLET BY 2-22 MOUTH AT 00:00: BEDTIME 00 NEEDED FOR PAIN VITAMIN D3 2021-1 No 50,000IU 2-14 00:00: 00 CYCLOBENZAP 2021-1 No RINE 2-14 HYDROCHLO 00:00: 10MG TAB 00 TAKE 2 2021-09 No PUFFS BY 2-14 MOUTH EVERY 00:00: 4 TO 6 00 HOURS TAKE 2021-09 No TABLET BY 2-14 MOUTH TWICE 00:00: A DAY FOR 00 30 DAYS TIZANIDINE 2021-1 No 2MG TAB 2-14 00:00: 00 GABAPENTIN 2021-1 No 300MG 2-14 00:00: 00 PLEASE SEE 2021-1 No ATTACHED 2-14 FOR 00:00: DETAILED 00 DIRECTIONS TAKE 1 2021-09 No CAPSULE BY 2-14 MOUTH EVERY 00:00: DAY 00 ZOLPIDEM 2021-1 No TARTRATE 2-14 10MG TAB 00:00: 00 SPIRONOLACT 2021-1 No 50MG TAB 2-14 00:00: 00 BUSPIRONE 2021-1 No HYDROCHLORI 2-14 DE 5MG TAB 00:00: 00 BREO 2021-1 No ELLIPTA 2-14 200-25 INH 00:00: 00 Dose 2021-1 No Unknown 2-14 00:00: 00 TAKE 1 2021-09 No TABLET BY 2-14 MOUTH EVERY 00:00: DAY 00 METFORMIN 2021-09 No ER 500MG GP 2-14 TAB 00:00: 00 PREDNISONE 2021- No 10MG TAB 2-14 00:00: 00 LOSARTAN/HC 2021-09 No T 50-12.5 2-14 TAB 00:00: 00 Dose 2021-09 No Unknown 2-14 00:00: 00 ARIPIPRAZOL 2021-09 No E 5MG TAB 2-14 00:00: 00 PLEASE SEE 2021-09 No ATTACHED 2-14 FOR 00:00: DETAILED 00 DIRECTIONS Dose 2021-09 No Unknown 2-14 00:00: 00 TAKE 1 2021-09 No TABLET BY 2-14 MOUTH EVERY 00:00: DAY FOR 30 00 DAYS TAKE 1 2021-09 No TABLET BY 2-14 MOUTH EVERY 00:00: 8 HOURS 00 TAKE 6 2021-09 No TABLETS ON 2-14 DAY 1 00:00: DIRECTED ON 00 PACKAGE AND DECREASE BY 1 TAB EACH DAY FOR A TOTAL OF 6 DAYS METHOCARBAM 2021-09 No OL 750MG 2-14 TAB 00:00: 00 HYDROCHLORO 2021-09 No THIAZIDE 2-14 12.5MG 00:00: 00 Dose 2021-09 No Unknown 2-14 00:00: 00 Dose 2021-09 No 4 Unknown 2-14 00:00: 00 Dose 2021-09 No Unknown 2-14 00:00: 00 ACETAMINOPH 2021-09 No EN/CODEINE 2-14 #3 TAB 00:00: 00 HYDROCODONE 2021-09 No BITARTRATE/ 2-14 AC 5-325MG 00:00: TAB 00 Dose 2021-09 No Unknown 2-14 00:00: 00 TAKE 1 2021-09 No 4 TABLET BY 2-14 MOUTH TWICE 00:00: A DAY 00 NEEDED Dose 2021-09 No 4 Unknown 2-14 00:00: 00 TAKE 1 2021-09 No TABLET BY 2-14 MOUTH EVERY 00:00: DAY 00 Dose 2021-09 No Unknown 2-14 00:00: 00 Dose 2021-09 No Unknown 2-14 00:00: 00 Dose 2021-09 No Unknown 2-14 00:00: 00 Dose 2021-09 No Unknown 2-14 00:00: 00 BENZONATATE 2021-09 No 100 100MG 2-14 00:00: 00 TAKE 1 2021- No 4 TABLET BY 2-14 MOUTH EVERY 00:00: DAY 00 Dose 2021- No Unknown 2-14 00:00: 00 Dose 2021- No Unknown 2-14 00:00: 00 Dose 2021-1 No Unknown 2-14 00:00: 00 Dose 2021- No Unknown 2-14 00:00: 00 TAKE 2 2021-09 No TABLETS BY 2-14 MOUTH EVERY 00:00: 4 TO 6 00 HOURS NEEDED FOR PAIN TAKE 1 2021-09 No 100 CAPSULE BY 2-14 MOUTH EVERY 00:00: 8 HOURS 00 1 TABLET 2021- No ORALLY 2-14 EVERY 6 HRS 00:00: FOR 5 DAYS 00 Dose 2021- No Unknown 2-14 00:00: 00 Dose 2021- No Unknown 2-14 00:00: 00 Dose 2021- No Unknown 2-14 00:00: 00 Dose 2021- No Unknown 2-14 00:00: 00 Dose 2021- No Unknown 2-14 00:00: 00 Dose 2021- No Unknown 2-14 00:00: 00 Dose 2021- No Unknown 2-14 00:00: 00 Dose 2021- No Unknown 2-14 00:00: 00 Dose 2021-1 No Unknown 2-14 00:00: 00 Dose 2021- No Unknown 2-14 00:00: 00 Dose 2021- No Unknown 2-14 00:00: 00 Dose 2021-1 No Unknown 2-14 00:00: 00 Dose 2021-1 No Unknown 2-14 00:00: 00 Dose 2021-1 No Unknown 2-14 00:00: 00 Dose 2021-1 No Unknown 2-14 00:00: 00 Dose 2021-1 No Unknown 2-14 00:00: 00 Dose 2021-1 No Unknown 2-14 00:00: 00 Dose 2021-1 No 25 Unknown 2-14 00:00: 00 Dose 2021- No Unknown 2-14 00:00: 00 Dose 2021- No Unknown 2-14 00:00: 00 Dose 2021-1 No Unknown 2-14 00:00: 00 Dose 2021- No Unknown 2-14 00:00: 00 Dose 2021- No Unknown 2-14 00:00: 00 Dose 2021- No Unknown 2-14 00:00: 00 Dose 2021- No Unknown 2-14 00:00: 00 Dose 2021- No Unknown 2-14 00:00: 00 Dose 2021- No Unknown 2-14 00:00: 00 Dose 2021- No Unknown 2-14 00:00: 00 Dose 2021- No Unknown 2-14 00:00: 00 Dose 2021- No Unknown 2-14 00:00: 00 Dose 2021- No Unknown 2-14 00:00: 00 VITAMIN D3 2021-09 No 50,000IU 2-14 00:00: 00 CYCLOBENZAP 2021-09 No RINE 2-14 HYDROCHLO 00:00: 10MG TAB 00 TAKE 2 2021-09 No PUFFS BY 2-14 MOUTH EVERY 00:00: 4 TO 6 00 HOURS TAKE 1 2021-09 No TABLET BY 2-14 MOUTH TWICE 00:00: A DAY FOR 00 30 DAYS TIZANIDINE 2021-09 No 2MG TAB 2-14 00:00: 00 GABAPENTIN 2021-09 No 300MG 2-14 00:00: 00 PLEASE SEE 2021-09 No ATTACHED 2-14 FOR 00:00: DETAILED 00 DIRECTIONS TAKE 1 2021-09 No CAPSULE BY 2-14 MOUTH EVERY 00:00: DAY 00 ZOLPIDEM 2021-09 No TARTRATE 2-14 10MG TAB 00:00: 00 SPIRONOLACT 2021-09 No 50MG TAB 2-14 00:00: 00 BUSPIRONE 2021-09 No HYDROCHLORI 2-14 DE 5MG TAB 00:00: 00 BREO 2021-09 No ELLIPTA 2-14 200-25 INH 00:00: 00 Dose 2021-09 No Unknown 2-14 00:00: 00 TAKE 1 2021-09 No TABLET BY 2-14 MOUTH EVERY 00:00: DAY 00 METFORMIN 2021- No ER 500MG GP 2-14 TAB 00:00: 00 PREDNISONE 2021- No 10MG TAB 2-14 00:00: 00 LOSARTAN/HC 2021-09 No T 50-12.5 2-14 TAB 00:00: 00 Dose 2021-09 No Unknown 2-14 00:00: 00 ARIPIPRAZOL 2021-09 No E 5MG TAB 2-14 00:00: 00 PLEASE SEE 2021-09 No ATTACHED 2-14 FOR 00:00: DETAILED 00 DIRECTIONS Dose 2021-09 No Unknown 2-14 00:00: 00 TAKE 1 2021-09 No TABLET BY 2-14 MOUTH EVERY 00:00: DAY FOR 30 00 DAYS TAKE 1 2021-09 No TABLET BY 2-14 MOUTH EVERY 00:00: 8 HOURS 00 TAKE 6 2021-09 No TABLETS ON 2-14 DAY 1 00:00: DIRECTED ON 00 PACKAGE AND DECREASE BY 1 TAB EACH DAY FOR A TOTAL OF 6 DAYS METHOCARBAM 2021-09 No OL 750MG 2-14 TAB 00:00: 00 HYDROCHLORO 2021-09 No THIAZIDE 2-14 12.5MG 00:00: 00 Dose 2021-09 No Unknown 2-14 00:00: 00 Dose 2021-09 No 4 Unknown 2-14 00:00: 00 Dose 2021-09 No Unknown 2-14 00:00: 00 ACETAMINOPH 2021-09 No EN/CODEINE 2-14 #3 TAB 00:00: 00 HYDROCODONE 2021-09 No BITARTRATE/ 2-14 AC 5-325MG 00:00: TAB 00 Dose 2021-09 No Unknown 2-14 00:00: 00 TAKE 1 2021-09 No 4 TABLET BY 2-14 MOUTH TWICE 00:00: A DAY 00 NEEDED Dose 2021-09 No 4 Unknown 2-14 00:00: 00 TAKE 1 2021-09 No TABLET BY 2-14 MOUTH EVERY 00:00: DAY 00 Dose 2021-09 No Unknown 2-14 00:00: 00 Dose 2021- No Unknown 2-14 00:00: 00 Dose 2021- No Unknown 2-14 00:00: 00 Dose 2021-09 No Unknown 2-14 00:00: 00 BENZONATATE 2021- No 100 100MG 2-14 00:00: 00 TAKE 1 2021-09 No 4 TABLET BY 2-14 MOUTH EVERY 00:00: DAY 00 Dose 2021-09 No Unknown 2-14 00:00: 00 Dose 2021-09 No Unknown 2-14 00:00: 00 Dose 2021- No Unknown 2-14 00:00: 00 Dose 2021-09 No Unknown 2-14 00:00: 00 TAKE 2 2021-09 No TABLETS BY 2-14 MOUTH EVERY 00:00: 4 TO 6 00 HOURS NEEDED FOR PAIN TAKE 1 2021-09 No 100 CAPSULE BY 2-14 MOUTH EVERY 00:00: 8 HOURS 00 1 TABLET 2021- No ORALLY 2-14 EVERY 6 HRS 00:00: FOR 5 DAYS 00 Dose 2021-09 No Unknown 2-14 00:00: 00 Dose 2021- No Unknown 2-14 00:00: 00 Dose 2021- No Unknown 2-14 00:00: 00 Dose 2021- No Unknown 2-14 00:00: 00 Dose 2021- No Unknown 2-14 00:00: 00 Dose 2021- No Unknown 2-14 00:00: 00 Dose 2021- No Unknown 2-14 00:00: 00 Dose 2021- No Unknown 2-14 00:00: 00 Dose 2021- No Unknown 2-14 00:00: 00 Dose 2021- No Unknown 2-14 00:00: 00 Dose 2021- No Unknown 2-14 00:00: 00 Dose 2021- No Unknown 2-14 00:00: 00 Dose 2021- No Unknown 2-14 00:00: 00 Dose 2021- No Unknown 2-14 00:00: 00 Dose 2021- No Unknown 2-14 00:00: 00 Dose 2021- No Unknown 2-14 00:00: 00 Dose 2021- No Unknown 2-14 00:00: 00 Dose 2021- No Unknown 2-14 00:00: 00 Dose 2021-1 No Unknown 2-14 00:00: 00 Dose 2021- No Unknown 2-14 00:00: 00 Dose 2021-1 No Unknown 2-14 00:00: 00 Dose 2021-1 No Unknown 2-14 00:00: 00 Dose 2021-1 No Unknown 2-14 00:00: 00 Dose 2021- No Unknown 2-14 00:00: 00 Dose 2021- No Unknown 2-14 00:00: 00 Dose 2021- No Unknown 2-14 00:00: 00 Dose 2021- No Unknown 2-14 00:00: 00 Dose 2021- No Unknown 2-14 00:00: 00 Dose 2021- No Unknown 2-14 00:00: 00 Dose 2021- No Unknown 2-14 00:00: 00 Dose 2021- No Unknown 2-14 00:00: 00 ZOLPIDEM ER 2021- No 12.5MG 2-12 00:00: 00 ZOLPIDEM ER 2021- No 12.5MG 2-12 00:00: 00 TAKE 1 2021- No TABLET BY 2-09 MOUTH EVERY 00:00: 12 HOURS 00 FOR 7 DAYS TAKE 1 2021- No TABLET BY 2-09 MOUTH TWICE 00:00: A DAY 00 TAKE 1 2021- No 4 TABLET BY 2-09 MOUTH EVERY 00:00: 12 HOURS 00 FOR 7 DAYS TAKE 1 2021- No TABLET BY 2-09 MOUTH TWICE 00:00: A DAY 00 INJECT 1 ML 2021-09 No 150 INTRAMUSCUL 2-09 JUDIE ONCE 00:00: EVERY 3 00 MONTHS. Dose 2021- No Unknown 2- 00:00: 00 METOPROL 2021- No 25 TAR 25MG 2- 00:00: 00 TAKE 2021-09 No 4 TABLET BY 2-09 MOUTH EVERY 00:00: 12 HOURS 00 FOR 7 DAYS TAKE 1 2021-09 No TABLET BY 2-09 MOUTH TWICE 00:00: A DAY 00 INJECT 1 ML 2021-09 No 150 INTRAMUSCUL 2-09 JUDIE ONCE 00:00: EVERY 3 00 MONTHS. Dose 2021- No Unknown 2- 00:00: 00 METOPROL 2021- No TAR 25MG 2- 00:00: 00 TAKE 2021- No 5 TABLET BY 2-08 MOUTH TWICE 00:00: A DAY 00 TAKE 1 2021- No 5 TABLET BY 2-08 MOUTH TWICE 00:00: A DAY 00 CELECOXIB 2021-1 No 200MG 2- 00:00: 00 Dose 2021- No Unknown 2- 00:00: 00 TAKE 1 2021- No 5 TABLET BY 2-08 MOUTH TWICE 00:00: A DAY 00 CELECOXIB 2021-1 No 200MG 2- 00:00: 00 Dose 2021- No Unknown 2- 00:00: 00 VITAMIN D3 2021- No 50,000IU 2- 00:00: 00 APAP/CODEIN 2021- No E #4 10-01 00:00: 00 APAP/CODEIN 2021-09 No E #4 10-01 00:00: 00 OMEPRAZOLE 2021-09 No 20MG 09-30 00:00: 00 TAKE 1 2021-09 No CAPSULE BY 09-30 MOUTH EVERY 00:00: 8 HOURS 00 TAKE 2 2021-09 No 100 TABLETS BY 09-30 MOUTH EVERY 00:00: DAY 00 OMEPRAZOLE 2021-09 No 20MG 09-30 00:00: 00 TAKE 2021-09 No CAPSULE BY 09-30 MOUTH EVERY 00:00: 8 HOURS 00 TAKE 2 2021-09 No TABLETS BY 09-30 MOUTH EVERY 00:00: DAY 00 TAKE 1 2021-09 No TABLET BY 09-30 MOUTH EVERY 00:00: 8 HOURS 00 NEEDED hydrOXYzine 2021-09 Yes 25mg Take 25 mg [facility] 25 mg 24 by mouth. ity of tablet 14:01: [place] 35 Medical Branch traMADoL 2021-09 No 100mg 100 mg, Univ ers (ULTRAM) 09-26 11-25 Oral, ity of tablet 100 04:05: 05:41 Q8HPRN, [place] mg 40 :29 Starting Medical on Sun Branch 07/26/22 at 2205, Until Nicole 07/27/22 at 2341, Routine, Pain (scale 4-6) metoprolol 2021-09 Yes [id number] 25mg Take 1 [facility] tartrate 25 -24 tablet by [place] of mg tablet 00:00: [place] 00 the [place] morning Branch and 1 tablet at noon and 1 tablet in the evening. metoprolol 2021-09- No [id number] 25mg Take 1 [facility] tartrate 25 24 03-05 tablet by it y of mg tablet 00:00: 00:00 mouth in [place] 00 :00 the Medical morning Branch and 1 tablet at noon and 1 tablet in the evening. traMADoL 2021-09- No [id number] 100mg Take 100 Uni vers 100 mg Tab 24 12-02 mg by ity of 00:00: 05:59 mouth [place] 00 :00 every 8 Medical (eight) Branch hours as needed for Pain (scale 4-6) for up to 7 days. Indication s: acute pain metoprolol 2021-09 Yes 25mg 25 mg, Unive rs tartrate 1-23 Oral, TID, ity o f (LOPRESSOR) 20:00: First dose [place] tablet 25 00 (after Medical mg last Branch modificati on) on Sun07/26/22 at 1400, Until Discontinu ed, Routine furosemide 2021-09 No 40mg 40 mg, [facility] ers (LASIX) 09-25 Slow IV ity of injection 18:00: 18:10 Push, [place] 40 mg 00 :00 ONCE, 1 Medical dose, On Branch Sun07/26/22 at 1200, Routine metoprolol 2021-09- No 25mg 25 mg, Univ ers tartrate 09-25 Oral, BID, ity of (LOPRESSOR) 15:30: 17:08 First dose [place] tablet 25 00 :02 on Sun Medical mg 07/26/22 Branch at 0930, Until Discontinu ed, Routine enoxaparin 2021-09 Yes 40mg 40 mg, Unive rs (LOVENOX) 09-25 Subcutaneo ity of injection 15:00: [place], [place]ILY, [place] 00 First dose Medical on Sun07/26/22 at 0900, Until Discontinu ed, Routine amLODIPine 2021-09 No 10mg 10 mg, [place] [facility] ers (NORVASC) 09-25 Oral, ity of tablet 10 15:00: 15:21 DAILY, [place] mg 00 :17 First dose Medical on Sun07/26/22 at 0900, Until Discontinu ed, Routine methocarbam 2021-09 Yes 500mg 500 mg, Un guillermina oL 09-25 Oral, BID, ity of (ROBAXIN) 14:00: [place] tablet 500 00 on Sun Medical mg 07/26/22 Branch at 0800, Until Discontinu ed, Routine ondansetron 2021-09 Yes 4mg 4 mg, Slow Univers (ZOFRAN 09-25 IV Push, ity of (PF)) 05:42: Q6HPRN, [place] injection 4 35 Starting Medi dayna mg on Sun07/25/22 at 2342, Until Discontinu ed, Routine, Nausea and Vomiting (N/V) FENTanyl PF 2021-09 No 50ug 50 mcg, Un guillermina (SUBLIMAZE 09-25 Slow IV ity o f (PF)) 05:42: 05:41 Push, [place] injection 32 :32 Q3HPRN, Medical 50 mcg Starting Branch on Sun07/25/22 at 2342, Until Sun07/26/22 at 2341, Routine, Pain (scale 7-10) traMADoL 2021-09- No 50mg 50 mg, Univer s (ULTRAM) 09-2524 Oral, ity of tablet 50 05:42: 04:05 Q8HPRN, [place] mg 29 :58 Starting Medical on Sun07/25/22 at 2342, Until Sun07/26/22 at 2205, Routine, Pain (scale 4-6) ondansetron 2021-09 No 4mg 4 mg, Slow Univers (ZOFRAN 09-25 IV Push, ity of (PF)) 05:00: 04:23 ONCE, 1 [place] injection 4 00 :00 dose, On Medi dayna mg [facility] 07/25/22 at 2300, SE morpHINE (4 2021-09 No 4mg 4 mg, Slow Univers mg/mL) 09-25 IV Push, ity of injection 4 05:00: 04:23 ONCE, 1 [place] mg 00 :00 dose, On [facility] 07/25/22 at 2300, ES iopamidol 2021-09- No [id number] 100mL 100 mL, Univers (ISOVUE 09-25 Intravenou ity o f 370-500 mL) 04:15: 03:20 s, ONCE, 1 [place] injection 00 :00 dose, On Medica l 100 mL [facility] 07/25/22 at 2215, Routine morpHINE (2 2021-09- No 2mg 2 mg, Slow Univers mg/mL) 09-25 IV Push, ity of injection 2 02:45: 02:36 ONCE, 1 [place] mg 00 :00 dose, On [facility] 07/25/22 at 2045, STAT TAKE 2021-09 No TABLET BY 09-25 MOUTH IN 00:00: THE MORNING 00 AND 1 TABLET IN THE EVENING. TAKE 2021-09 No TABLET BY 09-25 MOUTH IN 00:00: THE MORNING 00 AND 1 TABLET IN THE EVENING. metoprolol 2021-09- No [id number] 25mg Take 1 [facility] tartrate 25 09-25 11-24 tablet by it y of mg tablet 00:00: 00:00 mouth in [place] 00 :00 the Medical morning Branch and 1 tablet in the evening. TAKE 09/04 No TABLET BY 1-22 MOUTH TWICE 00:00: DAILY 00 NEEDED FLUOXETIN(P 2021-09 No ) 40MG 09-24 00:00: 00 TAKE 09/04 No TABLET BY 1-22 MOUTH TWICE 00:00: DAILY 00 NEEDED FLUOXETIN(P 2021-09 No ) 40MG 09-24 00:00: 00 BREO 2021-09 No ELLIPTA -21 200-25 INH 00:00: 00 BREO 2021-09 No ELLIPTA - 200-25 INH 00:00: 00 ALPRAZOLAM 2021-09 No 1MG 1-15 00:00: 00 ALPRAZOLAM 2021-09 No 1MG 1-15 00:00: 00 TIZANIDINE 2021-09 No 2MG 1-09 00:00: 00 TIZANIDINE 2021-09 No 2MG 1-09 00:00: 00 ZOLPIDEM 2021-09 No 10MG 1-08 00:00: 00 ZOLPIDEM 2021-09 No 10MG 1-08 00:00: 00 NALOXONE 2021-09 No HCL 4MG SPR 09-03 00:00: 00 USE 1 SPRAY 2021-09 No NEEDED 1-01 NEEDED 00:00: OVERDOSE 00 APAP/CODEIN 2021-09 No E #4 - 00:00: 00 NALOXONE 2021-09 No HCL 4MG SPR 09-03 00:00: 00 USE 1 SPRAY 2021-09 No NEEDED 1-01 NEEDED 00:00: OVERDOSE 00 APAP/CODEIN 2021-09 No E #4 - 00:00: 00 USE 1 2021-09 No AMPULE IN 0-25 NEBULIZER 3 00:00: TIMES A DAY 00 ALBUTER 3ML 2021-09 No .63MG/3M 0-25 00:00: 00 USE 2021-09 No AMPULE IN 0-25 NEBULIZER 3 00:00: TIMES A DAY 00 ALBUTER 3ML 2021-09 No .63MG/3M 0-25 00:00: 00 celecoxib 2021-09- No 100mg Take 100 Un guillermina (CELEBREX) 0-24 10-24 mg by ity of 100 mg 06:18: 00:00 mouth 2 [place] capsule 50 :00 (two) Medical times Branch daily with meals. amLODIPine 2021-09 No 10mg Take 10 mg Univers 10 mg 0-24 10-24 by mouth ity of tablet 06:18: 00:00 daily. [place] 50 :00 Medical Branch FLUoxetine 2021-09- No 10mg Take 10 mg Univers 10 mg 0-24 10-24 by mouth ity of capsule 06:18: 00:00 daily. [place] 50 :00 Medical Branch traMADoL 2021-09 No 100mg Take 100 Uni vers 100 mg 0-24 10-24 mg by ity of capsule 06:18: 00:00 mouth [place] 50 :00 every 6 Medical (six) Branch hours as needed. famotidine 2021-09 Yes 20mg 20 mg, Unive rs (PEPCID AC) 0-24 Oral, BID, it y of tablet 20 05:30: First dose [place] mg 00 on Sun Medical 06/26/22 Branch at 0030, Until Discontinu ed, Routine ceFEPIme 2021-09 No 1000mg 1,000 mg, U nivers (MAXIPIME) 0- IV ity of 1,000 mg in 21:15: 21:14 [facility], [place] NaCl 0.9% 00 :00 Q8H ABX, 9 [...] 00 DAILY, Medical First dose Branch on Sun06/25/22 at 0900, Until Discontinu ed, Routine enoxaparin 2021-09 Yes 40mg 40 mg, Unive rs (LOVENOX) 0-23 Subcutaneo ity of injection 14:00: us, DAILY, [place] 40 mg 00 First dose Medical on [place] Branch 06/25/22 at 0900, Until Discontinu ed, Routine amLODIPine 2021-09 Yes 10mg 10 mg, Unive rs (NORVASC) 0-23 Oral, ity of tablet 10 14:00: DAILY, [place] mg 00 First dose Medical on [place] Branch 06/25/22 at 0900, Until Discontinu ed, Routine azithromyci 2021-09 No 500mg 500 mg, U nivers n 0-25 06- Oral, ity of (ZITHROMAX) 14:00: 13:59 DAILY, 3 [place] tablet 500 00 :00 doses, Medical mg First dose Branch on [place] 06/25/22 at 0900, Last dose on Sun06/27/22 at 0900, SE
Re ason for Anti-Infec tive: Empiric Therapy for Suspected Infection< br>Empiric Therapy Site: Respirator y
Durat ion of therapy: 72 hours ceFEPIme 2021-09 No 1000mg 1,000 mg, U nivers (MAXIPIME) 006-25 IV ity of 1,000 mg in 13:30: 14:00 [place], [place] NaCl 0.9% 00 :00 ONCE, 1 Medical (NS) 50 mL dose, On Branc h MINI-BAG [place] 06/25/22 at 0830, Administer over 30 Minutes, 50 mL
Reas on for Anti-Infec tive: Empiric Therapy for Suspected Infection< br>Empiric Therapy Site: Respirator y
Durat ion of therapy: 72 hours losartan 2021-09 Yes 50mg 50 mg, Univers (COZAAR) 0-23 Oral, BID, ity o f tablet 50 13:00: First dose [place] mg 00 on [facility] 06/25/22 Branch at 0800, Until Discontinu ed, Routine methylPREDN 2021-09 Yes 40mg 40 mg, Univ ers ISolone sod 0-23 Slow IV ity o f succ 13:00: [facility], [place] (SOLU-MEDRO 00 Q12H, Medical L (PF)) First dose Branch injection on Sun 40 mg 06/25/22 at 0800, Until Discontinu ed, Routine morpHINE (2 2021-09 Yes 2mg 2 mg, Slow Univers mg/mL) 0- IV Push, ity of injection 2 11:02: Q6HPRN, [place] mg 17 Starting Medical on [place] Branch 06/25/22 at 0602, Until Discontinu ed, Routine, Pain (scale 7-10) iopamidol 2021-09- No [id number] 100mL 100 mL, Univers (ISOVUE 0-06-25 Intravenou ity o f 370-500 mL) 07:59: 07:59 s, ONCE, 1 [place] injection 00 :00 dose, On Medica l 100 mL [place] Branch 06/25/22 at 0315, Routine traMADoL 2021-09 Yes 50mg 50 mg, Univers (ULTRAM) 0- Oral, ity of tablet 50 07:36: Q6HPRN, [place] mg 43 Starting Medical on [place] Branch 06/25/22 at 0236, Until Discontinu ed, Routine, Pain (scale 4-6) morpHINE (4 2021-09- No 4mg 4 mg, Slow Univers mg/mL) 0- 10- IV Push, ity of injection 4 05:15: 04:46 ONCE, 1 [place] mg 00 :00 dose, On Medical [place] Branch 06/25/22 at 0015, SE furosemide 2021-09- No 40mg 40 mg, IV U nivers (LASIX) 006-25 Push, ity of injection 04:30: 04:46 ONCE, 1 [place] 40 mg 00 :00 dose, On Medical [facility] Branch 06/24/22 at 2330, SE ondansetron 2021-09 Yes 4mg 4 mg, Slow Univers (ZOFRAN 0-23 IV Push, ity of (PF)) 04:29: Q6HPRN, [place] injection 4 13 Starting Medi dayna mg on [facility] Branch 06/24/22 at 2329, Until Discontinu ed, Routine, Nausea and Vomiting (N/V) acetaminoph 2021-09 Yes 650mg 650 mg, Un guillermina en 0-23 Oral, ity of (TYLENOL) 04:29: Q6HPRN, [place] tablet 650 07 Starting Medic al mg on Sat Branch 06/24/22 at 2329, Until Discontinu ed, [...] tablet 05/31/22 at 2145, SE HYDROcodone 2021- No 4647 1{tbl} Take 1 U nivers -acetaminop 05-31 10-06 tablet by it y of hen 5-325 00:00: 04:59 mouth [place] mg tablet 00 :00 every 6 Medical (six) Branch hours as needed for Pain (scale 7-10) for up to 7 days. Indication s: acute pain &lt 2021-0 No 8-16 00:00: 00 TAKE 1 2021-0 No 20 CAPSULE BY 8-16 MOUTH EVERY 00:00: DAY 00 &lt 2021-0 No 100 8-16 00:00: 00 &lt 2021-0 No 500 8- 00:00: 00 TAKE 1 2021-0 No 200 CAPSULE BY 8-16 MOUTH EVERY 00:00: DAY 00 TAKE 1 2021-0 No 20 TABLET BY 8-16 MOUTH EVERY 00:00: DAY FOR 30 00 DAYS USE 1 PUFF 2021-0 No EVERY DAY 8-16 00:00: 00 INJECT 1 ML 2021-0 No 150 INTRAMUSCUL 04-18 JUDIE ONCE 00:00: EVERY 3 00 MONTHS. &lt 2022-0 No 8-16 00:00: 00 Dose 2-0 No Unknown 8-16 00:00: 00 DICLOFENAC 2021-0 No SODIUM ER 8-16 100MG ER 00:00: TAB 00 &lt 2022-0 No 500 8-16 00:00: 00 TAKE 1 2022-0 No CAPSULE BY 8-16 MOUTH EVERY 00:00: DAY 00 TAKE 1 2022-0 No 20 TABLET BY 8-16 MOUTH EVERY 00:00: DAY FOR 30 00 DAYS USE 1 PUFF 2022-0 No EVERY DAY 8-16 00:00: 00 Dose 2022-0 No Unknown 8-16 00:00: 00 &lt 2022-0 No 8-16 00:00: 00 Dose 2022-0 No Unknown 8 00:00: 00 DICLOFENAC 2022-0 No SODIUM ER 8-16 100MG ER 00:00: TAB 00 &lt 2022-0 No 500 8 00:00: 00 TAKE 1 2-0 No CAPSULE BY 8-16 MOUTH EVERY 00:00: DAY 00 TAKE 1 2-0 No 20 TABLET BY 8-16 MOUTH EVERY 00:00: DAY FOR 30 00 DAYS USE 1 PUFF 2-0 No EVERY DAY 8- 00:00: 00 Dose 2022-0 No Unknown 8-16 00:00: 00 &lt 2022-0 No 8-13 00:00: 00 &lt 2022-0 No 8-13 00:00: 00 &lt 2022-0 No 8-13 00:00: 00 &lt 2022-0 No 8-13 00:00: 00 TAKE 1 2-0 No 500 TABLET BY 8-12 MOUTH EVERY 00:00: DAY FOR 7 00 DAYS &lt 2022-0 No 20 8 00:00: 00 Dose 2022-0 No Unknown 04-14 00:00: 00 Dose 2022-0 No Unknown 04-14 00:00: 00 FUROSEMIDE 2022-0 No 20MG TAB 04-14 00:00: 00 TAKE 1 2022-0 No TABLET BY 8-12 MOUTH TWICE 00:00: A DAY 00 TAKE 1 2022-0 No 500 TABLET BY 8-12 MOUTH EVERY 00:00: DAY FOR 7 00 DAYS &lt 2022-0 No 20 04-14 00:00: 00 TAKE 1 2022-0 No 75 TABLET BY 8-12 MOUTH TWICE 00:00: A DAY 00 Dose 2022-0 No Unknown 04-14 00:00: 00 FUROSEMIDE 2022-0 No 20MG TAB 04-14 00:00: 00 TAKE 1 2022-0 No TABLET BY 8-12 MOUTH TWICE 00:00: A DAY 00 ALPRAZOLAM 2022-0 No 1MG TAB 04-11 00:00: 00 &lt 2022-0 No 04-11 00:00: 00 Dose 2022-0 No Unknown 04-11 00:00: 00 ALPRAZOLAM 2022-0 No 1MG TAB 04-11 00:00: 00 Dose 2022-0 No Unknown 04-11 00:00: 00 TAKE 1 2-0 No TABLET BY 8-09 MOUTH EVERY 00:00: 12 HOURS 00 NEEDED &lt 2022-0 No 1 04-11 00:00: 00 &lt 2022-0 No 04-11 00:00: 00 Dose 2022-0 No Unknown 04-11 00:00: 00 ALPRAZOLAM 2022-0 No 1MG TAB 04-11 00:00: 00 Dose 2022-0 No Unknown 04-11 00:00: 00 TAKE 1 2-0 No TABLET BY 8-09 MOUTH EVERY 00:00: 12 HOURS 00 NEEDED &lt 2022-0 No 100 7-15 00:00: 00 &lt 2022-0 No 100 7-15 00:00: 00 &lt 2022-0 No 100 7-15 00:00: 00 &lt 2022-0 No 100 7-15 00:00: 00 Cholecalcif 2-0 Yes Eduardo reynosool, 7-14 ity of Vitamin D3, 00:00: [place] 1,250 mcg 00 Medical (50,000 Branch unit) capsule Cholecalcif 2-0 Yes Eduardo reynosool, 7-14 ity of Vitamin D3, 00:00: [place] 1,250 mcg 00 Medical (50,000 Branch unit) capsule Cholecalcif 2-0 Yes Eduardo milan shanti, 7-14 ity of Vitamin D3, 00:00: [place] 1,250 mcg 00 Medical (50,000 Branch unit) capsule Cholecalcif 2-0 Yes Eduardo milan shanti, 7-14 ity of Vitamin D3, 00:00: [place] 1,250 mcg 00 Medical (50,000 Branch unit) capsule Cholecalcif 2-0 Yes Eduardo reynosool, 7-14 ity of Vitamin D3, 00:00: [place] 1,250 mcg 00 Medical (50,000 Branch unit) capsule enoxaparin 2022-0 Yes 40mg 40 mg, Unive rs (LOVENOX) 6-26 Subcutaneo ity of injection 14:00: [place], DAILY, [place] 40 mg 00 First dose Medical on [facility] 02/26/22 at 0900, Until Discontinu ed, Routine amLODIPine 2021-0 Yes 10mg 10 mg, Unive rs (NORVASC) 6-26 Oral, ity of tablet 10 14:00: DAILY, [place] mg 00 First dose Medical on [facility] 02/26/22 at 0900, Until Discontinu ed, Routine celecoxib 2021-0 Yes 100mg Take 100 Uni vers (CELEBREX) 6-26 mg by ity of 100 mg 12:37: mouth 2 [place] capsule 35 (two) Medical times [place] daily with meals. amLODIPine 2021-0 Yes 10mg Take 10 mg U nivers 10 mg 6-26 by mouth ity of tablet 12:37: daily. [address] FLUoxetine 2021-0 Yes 10mg Take 10 mg U nivers 10 mg 6-26 by mouth ity of capsule 12:37: daily. [address] traMADoL 2021-0 Yes 100mg Take 100 [...] by mouth ity of tablet 12:37: daily. [address] FLUoxetine 2022-0 Yes 10mg Take 10 mg U nivers 10 mg 6-26 by mouth ity of capsule 12:37: daily. [address] traMADoL 2-0 Yes 100mg Take 100 [...] by mouth ity of tablet 12:37: daily. [address] FLUoxetine 2022-0 Yes 10mg Take 10 mg U nivers 10 mg 6-26 by mouth ity of capsule 12:37: daily. [address] traMADoL 2022-0 Yes 100mg Take 100 [...] by mouth ity of tablet 12:37: daily. [address] FLUoxetine 2-0 Yes 10mg Take 10 mg U nivers 10 mg 6-26 by mouth ity of capsule 12:37: daily. [address] traMADoL 2022-0 Yes 100mg Take 100 [...] by mouth ity of tablet 12:37: daily. [address] FLUoxetine 2022-0 Yes 10mg Take 10 mg U nivers 10 mg 6-26 by mouth ity of capsule 12:37: daily. [address] traMADoL 2022-0 Yes 100mg Take 100 [...] by mouth ity of tablet 12:37: daily. [address] FLUoxetine 2021-0 Yes 10mg Take 10 mg U nivers 10 mg -26 by mouth ity of capsule 12:37: daily. [address] traMADoL 2021-0 Yes 100mg Take 100 Univ ers 100 mg 6-26 mg by ity of capsule 12:37: mouth [place] [id number] every 6 Medical (six) Branch hours as needed. ondansetron 2021-0 Yes 4mg 4 mg, Slow Univers (ZOFRAN 02-26 IV Push, ity of (PF)) 04:30: Q6HPRN, [place] injection 4 54 Starting Medi dayna mg on [facility] 02/25/22 at 2330, Until Discontinu ed, Routine, Nausea and Vomiting (N/V) acetaminoph 2021-0 Yes 650mg 650 mg, Un guillermina en 02-26 Oral, ity of (TYLENOL) 04:30: Q6HPRN, [place] tablet 650 45 Starting Medic al mg on [facility] 02/25/22 at 2330, Until Discontinu ed, Routine, Pain (scale 1-3) ondansetron 2021-0 2021- No 4mg 4 mg, Slow Univers (ZOFRAN 02-23 IV Push, ity of (PF)) 05:45: 04:58 ONCE, 1 [place] injection 4 00 :00 dose, On Medi dayna mg [facility] 02/23/22 at 0045, SE morpHINE (4 2021- No 4mg 4 mg, Slow Univers mg/mL) 02-23 IV Push, ity of injection 4 05:45: 04:58 ONCE, 1 [place] mg 00 :00 dose, On Medical [facility] 02/23/22 at 0045, STAT acetaminoph 2021-0 2021- No 1000mg 1,000 mg, Univers en 02-23 Oral, ity of (TYLENOL) 04:00: 03:13 ONCE, 1 [place] tablet 00 :00 dose, On Medical 1,000 mg [facility] 02/22/22 at 2300, SE methocarbam 2021-0 2021- No 1000mg 1,000 mg, Univers oL 02-23 Oral, ity of (ROBAXIN) 04:00: 03:14 ONCE, 1 [place] tablet 00 :00 dose, On Medical 1,000 mg [place] Branch 02/22/22 at 2300, SE TAKE 1 2-0 No CAPSULE BY 6-20 MOUTH EVERY 00:00: DAY 00 TAKE 1 2-0 No CAPSULE BY 6-20 MOUTH EVERY 00:00: DAY 00 TAKE 1 2022-0 No CAPSULE BY 6-20 MOUTH EVERY 00:00: DAY 00 TAKE 1 2022-0 No CAPSULE BY 6-20 MOUTH EVERY 00:00: DAY 00 &lt 2022-0 No 6-16 00:00: 00 &lt 2022-0 No 6-16 00:00: 00 &lt 2022-0 No 6-16 00:00: 00 &lt 2022-0 No 6-16 00:00: 00 Dose 2022-0 No Unknown 6- 00:00: 00 &lt 2022-0 No 6- 00:00: 00 TAKE 1 2-0 No TABLET BY 6-09 MOUTH TWICE 00:00: A DAY FOR 30 DAYS &lt 2022-0 No 6- 00:00: 00 TAKE 1 2-0 No TABLET BY 6-09 MOUTH TWICE 00:00: A DAY FOR 30 DAYS TAKE 1 2-0 No TABLET BY 6-09 MOUTH TWICE 00:00: A DAY FOR 30 DAYS &lt 2022-0 No - 00:00: 00 TAKE 1 2-0 No TABLET BY 6-09 MOUTH EVERY 00:00: 12 HOURS 00 NEEDED Dose 2022-0 No Unknown - 00:00: 00 &lt 2022-0 No 6- 00:00: 00 Dose 2022-0 No Unknown - 00:00: 00 Dose 2022-0 No Unknown - 00:00: 00 &lt 2022-0 No - 00:00: 00 TAKE 1 2022-0 No TABLET BY 6-09 MOUTH TWICE 00:00: A DAY FOR 30 DAYS &lt 2022-0 No - 00:00: 00 TAKE 1 2022-0 No TABLET BY 6-09 MOUTH TWICE 00:00: A DAY FOR 30 DAYS TAKE 1 2022-0 No TABLET BY 6-09 MOUTH TWICE 00:00: A DAY FOR 30 DAYS &lt 2022-0 No - 00:00: 00 TAKE 1 2022-0 No TABLET BY 6-09 MOUTH EVERY 00:00: 12 HOURS 00 NEEDED Dose 2022-0 No Unknown 6- 00:00: 00 &lt 2022-0 No 6- 00:00: 00 Dose 2022-0 No Unknown 02-09 00:00: 00 Dose 2022-0 No Unknown 02-09 00:00: 00 &lt 2022-0 No - 00:00: 00 TAKE 1 2022-0 No TABLET BY 6-09 MOUTH TWICE 00:00: A DAY FOR 00 30 DAYS &lt 2022-0 No - 00:00: 00 TAKE 1 2022-0 No TABLET BY 6-09 MOUTH TWICE 00:00: A DAY FOR 30 DAYS TAKE 1 2022-0 No TABLET BY 6-09 MOUTH TWICE 00:00: A DAY FOR 30 DAYS &lt 2022-0 No 02-09 00:00: 00 TAKE 1 2022-0 No TABLET BY 6-09 MOUTH EVERY 00:00: 12 HOURS 00 NEEDED Dose 2022-0 No Unknown 02-09 00:00: 00 &lt 2022-0 No - 00:00: 00 Dose 2022-0 No Unknown 02-09 00:00: 00 Dose 2022-0 No Unknown 02-09 00:00: 00 &lt 2022-0 No - 00:00: 00 TAKE 1 2022-0 No TABLET BY 6-09 MOUTH TWICE 00:00: A DAY FOR 00 30 DAYS &lt 2022-0 No - 00:00: 00 TAKE 1 2022-0 No TABLET BY 6-09 MOUTH TWICE 00:00: A DAY FOR 30 DAYS TAKE 1 2022-0 No TABLET BY 6-09 MOUTH TWICE 00:00: A DAY FOR 30 DAYS &lt 2022-0 No - 00:00: 00 TAKE 1 2022-0 No TABLET BY 6-09 MOUTH EVERY 00:00: 12 HOURS 00 NEEDED Dose 2022-0 No Unknown - 00:00: 00 &lt 2022-0 No - 00:00: 00 Dose 2022-0 No Unknown - 00:00: 00 &lt 2022-0 No 6- 00:00: 00 &lt 2022-0 No 6- 00:00: 00 &lt 2022-0 No 6-03 00:00: 00 &lt 2022-0 No 6-03 00:00: 00 Dose 2022-0 No Unknown 6- 00:00: 00 TAKE 1 2022-0 No TABLET BY 6-01 MOUTH EVERY 00:00: 12 HOURS 00 NEEDED Dose 2022-0 No Unknown 6- 00:00: 00 Dose 2022-0 No Unknown 6- 00:00: 00 TAKE 1 2022-0 No TABLET BY 6- MOUTH EVERY 00:00: 12 HOURS 00 NEEDED Dose 2022-0 No Unknown 6- 00:00: 00 TAKE 1 2022-0 No TABLET BY 6- MOUTH EVERY 00:00: 12 HOURS 00 NEEDED Dose 2022-0 No Unknown 6- 00:00: 00 Dose 2022-0 No Unknown 6- 00:00: 00 Dose 2022-0 No Unknown 6- 00:00: 00 TAKE 1 2022-0 No TABLET BY 6- MOUTH EVERY 00:00: 12 HOURS 00 NEEDED Dose 2022-0 No Unknown 6- 00:00: 00 metformin 2022-0 No 1mg 500 mg 5-31 tablet 00:00: 00 Dose 2022-0 No Unknown 5-31 00:00: 00 metformin 2022-0 No 1mg 500 mg 5-31 tablet 00:00: 00 &lt 2022-0 No 5-31 00:00: 00 Dose 2022-0 No Unknown 5-31 [...] ON 01-31 DAY 1 00:00: DIRECTED ON PACKAGE AND DECREASE BY 1 TAB EACH DAY FOR A TOTAL OF 6 DAYS TAKE 1 2022-0 No TABLET BY 5-31 MOUTH TWICE 00:00: A DAY 00 TAKE 2 2022-0 No PUFFS BY 5-31 MOUTH EVERY 00:00: 4 TO 6 00 HOURS TAKE 2 2022-0 No PUFFS BY -31 MOUTH EVERY 00:00: 4 TO 6 00 HOURS TAKE 1 2-0 No TABLET BY - MOUTH TWICE 00:00: A DAY 00 Dose 2022-0 No Unknown 01-31 00:00: 00 &lt 2022-0 No 01-31 00:00: 00 TAKE 6 2022-0 No TABLETS ON 1 00:00: DIRECTED ON 00 PACKAGE AND DECREASE BY 1 TAB EACH DAY FOR A TOTAL OF 6 DAYS TAKE 2 2-0 No PUFFS BY - MOUTH EVERY 00:00: 4 TO 6 00 HOURS &lt 2022-0 No 01-31 00:00: 00 TAKE 1 2021-0 No CAPSULE BY 01-31 MOUTH EVERY 00:00: DAY 00 TAKE 6 2-0 No TABLETS ON 00:00: DIRECTED ON 00 PACKAGE AND DECREASE BY 1 TAB EACH DAY FOR A TOTAL OF 6 DAYS TAKE 1 2021-0 No TABLET BY 01-31 MOUTH TWICE 00:00: A DAY 00 TAKE 2 2021-0 No PUFFS BY - MOUTH EVERY 00:00: 4 TO 6 00 HOURS TAKE 2 2-0 No PUFFS BY - MOUTH EVERY 00:00: 4 TO 6 00 HOURS Dose 2-0 No Unknown 01-31 00:00: 00 &lt 2022-0 No 01-31 00:00: 00 TAKE 6 2-0 No TABLETS ON 00:00: DIRECTED ON 00 PACKAGE AND DECREASE BY 1 TAB EACH DAY FOR A TOTAL OF 6 DAYS metformin 2-0 No 1mg 500 mg 01-31 tablet 00:00: 00 Dose 2-0 No Unknown 01-31 00:00: 00 &lt 2022-0 No -31 00:00: 00 TAKE 1 2-0 No TABLET BY - MOUTH TWICE 00:00: A DAY 00 TAKE 2 2-0 No PUFFS BY -31 MOUTH EVERY 00:00: 4 TO 6 00 HOURS &lt 2022-0 No -31 00:00: 00 TAKE 1 2-0 No CAPSULE BY -31 MOUTH EVERY 00:00: DAY 00 TAKE 6 2-0 No TABLETS ON 00:00: DIRECTED ON 00 PACKAGE AND DECREASE BY 1 TAB EACH DAY FOR A TOTAL OF 6 DAYS TAKE 1 2021-0 No TABLET BY 5-31 MOUTH TWICE 00:00: A DAY 00 TAKE 2 2-0 No PUFFS BY 5-31 MOUTH EVERY 00:00: 4 TO 6 00 HOURS TAKE 2 2-0 No PUFFS BY 5-31 MOUTH EVERY 00:00: 4 TO 6 00 HOURS Dose 2-0 No Unknown 01-31 00:00: 00 &lt 2022-0 No - 00:00: 00 TAKE 6 2-0 No TABLETS ON 1 00:00: DIRECTED ON 00 PACKAGE AND DECREASE BY 1 TAB EACH DAY FOR A TOTAL OF 6 DAYS metformin 2021-0 No 1mg 500 mg 01-31 tablet 00:00: 00 Dose 2021-0 No Unknown 01-31 00:00: 00 &lt 2-0 No 01-31 00:00: 00 TAKE 1 2021-0 No TABLET BY 5-31 MOUTH TWICE 00:00: A DAY 00 TAKE 2 2021-0 No PUFFS BY 5-31 MOUTH EVERY 00:00: 4 TO 6 00 HOURS &lt 2-0 No 01-31 00:00: 00 TAKE 1 2021-0 [...] 2-0 No Unknown 01-31 00:00: 00 &lt 2-0 No 01-31 00:00: 00 TAKE 6 2021-0 [...] 00 :00 dose, On Medica l %) [place] [facility] nebulizer 01/29/22 at solution 5 0915, [...] No Unknown 5-28 00:00: 00 FENTanyl PF No 50ug 50 [...] by mouth ity of tablet 12:53: daily. [address] FLUoxetine 2022-0 Yes 10mg Take 10 mg U nivers 10 mg 4-06 by mouth ity of capsule 12:53: daily. [address] traMADoL 2022-0 Yes 100mg Take 100 [...] by mouth ity of tablet 12:53: daily. [address] FLUoxetine 2-0 Yes 10mg Take 10 mg U nivers 10 mg 4-06 by mouth ity of capsule 12:53: daily. [address] traMADoL 2-0 Yes 100mg Take 100 [...] by mouth ity of tablet 12:53: daily. [address] FLUoxetine 2022-0 Yes 10mg Take 10 mg U nivers 10 mg 4-06 by mouth ity of capsule 12:53: daily. [address] traMADoL 2022-0 Yes 100mg Take 100 [...] by mouth ity of tablet 12:53: daily. [address] Branch FLUoxetine 2-0 Yes 10mg Take 10 mg U nivers 10 mg 4-06 by mouth ity of capsule 12:53: daily. [address] traMADoL 2-0 Yes 100mg Take 100 Univ ers 100 mg 4-06 mg by ity of capsule 12:53: mouth [place] 05 every 6 Medical (six) Branch hours as needed. celecoxib 2-0 Yes 100mg Take 100 Uni vers (CELEBREX) 4-06 mg by ity of 100 mg 12:53: mouth 2 [place] capsule 05 (two) Medical times Branch daily with meals. amLODIPine 2-0 Yes 10mg Take 10 mg U nivers 10 mg 4-06 by mouth ity of tablet 12:53: daily. [address] FLUoxetine 2021-0 Yes 10mg Take 10 mg U nivers 10 mg 4-06 by mouth ity of capsule 12:53: daily. [address] traMADoL 2-0 Yes 100mg Take 100 Univ ers 100 mg 4-06 mg by ity of capsule 12:53: mouth [place] 05 every 6 Medical (six) Branch hours as needed. celecoxib 2-0 Yes 100mg Take 100 Uni vers (CELEBREX) 4-06 mg by ity of 100 mg 12:53: mouth 2 [place] capsule 05 (two) Medical times Branch daily with meals. amLODIPine 2-0 Yes 10mg Take 10 mg U nivers 10 mg 4-06 by mouth ity of tablet 12:53: daily. [address] FLUoxetine 2-0 Yes 10mg Take 10 mg U nivers 10 mg 4-06 by mouth ity of capsule 12:53: daily. [address] traMADoL 2-0 Yes 100mg Take 100 Univ ers 100 mg 4-06 mg by ity of capsule 12:53: mouth [place] 05 every 6 Medical (six) Branch hours as needed. predniSONE 2-0 2021- No 10mg Take 10 mg Univers 10 mg 4-06 04-06 by mouth ity of tablet 10:31: 00:00 daily. [place] 31 :00 [facility] Branch hydrALAZINE 2021-0 2021- No 100mg Take 100 Univers 100 mg 12-07 mg by ity of tablet 10:31: 00:00 mouth 2 [place] 31 :00 (two) Medical times [place] daily. cefTRIAXone 2021- No 2000mg 2,000 mg, Univers (ROCEPHIN) 12-07 Intravenou it y of injection 05:00: 04:59 s, Q24H [place] 2,000 mg 00 :00 ABX, 5 Medical doses, [place] First dose on Sun12/07/21 at 0000, Last dose on Sun12/11/21 at 0000
Re ason for Anti-Infec tive: Documented Infection< br>Documen britney Infection Site: Respirator y
Durat ion of Therapy: 7 days predniSONE 2021- No [id number] Take 2 Univers 10 mg 12-07 tablets by ity of tablet 00:00: 04:59 mouth [place] 00 :00 daily for Medical 5 days, Branch THEN 1 tablet daily for 5 days, THEN 0.5 tablets daily for 5 days. predniSONE 2021- No [id number] Take 2 Univers 10 mg 12-07 tablets by ity of tablet 00:00: 04:59 mouth [place] 00 :00 daily for Medical 5 days, Branch THEN 1 tablet daily for 5 days, THEN 0.5 tablets daily for 5 days. azithromyci 2021- No [id number] 500mg Take 1 Univers n 500 mg 12-07 tablet by ity o f tablet 00:00: 04:59 mouth [place] 00 :00 daily for Medical 2 days. [place] azithromyci 2021- No [id number] 500mg Take 1 Univers n 500 mg 12-07-09 tablet by ity o f tablet 00:00: 04:59 mouth [place] 00 :00 daily for Medical 2 days. [place] traMADoL Yes 50mg 50 mg, Univers (ULTRAM) 12-06 Oral, ity of tablet 50 16:44: Q6HPRN, [place] mg 28 Starting Medical on Sun [place] 12/06/21 at 1144, Until Discontinu ed, Routine, Pain (scale 4-6) ALPRAZolam Yes .5mg 0.5 mg, Univ ers (XANAX) 4-05 Oral, ity of tablet 0.5 16:43: BIDPRN, [place] mg 05 Starting Medical on [facility] 12/06/21 at 1143, Until Discontinu ed, Routine, anxiety HYDROcodone Yes 1{tbl} 1 tablet, Univers -acetaminop 4-05 Oral, ity of hen (NORCO 16:42: Q6HPRN, [place] 5) 5-325 mg 38 Starting Medi dayna tablet 1 on [facility] tablet 12/06/21 at 1142, Until Discontinu ed, Routine, Pain (scale 7-10) azithromyci 2021- No 500mg 500 mg, IV Univers n 4-05 04-08 Piggyback, ity of (ZITHROMAX) 14:45: 14:44 Q24H ABX, [place] 500 mg in 00 :00 3 doses, Medica l NaCl 0.9% First dose Bran ch (NS) 250 mL on [facility]-MATE 12/06/21 at IV 0945, Last piggyback dose on [facility] 12/08/21 at 0945, Administer over 60 Minutes, 250 mL
Reas on for Anti-Infec tive: Empiric Therapy for Suspected Infection< br>Empiric Therapy Site: Respirator y
Durat ion of therapy: 72 hours KCL Yes 40meq 40 mEq, Univers (KLOR-CON 4-05 Oral, ity of M20) tablet 14:00: DAILY, [place] 40 mEq 00 First dose Medical on [facility] 12/06/21 at 0900, Until Discontinu ed, Routine enoxaparin Yes 40mg 40 mg, Unive rs (LOVENOX) 4-05 Subcutaneo ity of injection 14:00: us, Q24H, [place] as 40 mg 00 First dose Medical on [facility] 12/06/21 at 0900, Until Discontinu ed, Routine predniSONE Yes 20mg 20 mg, Unive rs (DELTASONE) 4-05 Oral, ity of tablet 20 14:00: DAILY, [place] mg 00 First dose Medical on [facility] 12/06/21 at 0900, Until Discontinu ed, Routine FLUoxetine 2022-0 Yes 20mg 20 mg, [place] [facility] 4-05 Oral, ity of capsule 20 14:00: DAILY, [place] mg 00 First dose Medical on [facility] 12/06/21 at 0900, Until Discontinu ed, Routine amLODIPine 0 Yes 5mg 5 mg, Univer s (NORVASC) 4-05 Oral, ity of tablet 5 mg 14:00: DAILY, [place] 00 First dose Medical on [facility] 12/06/21 at 0900, Until Discontinu ed, Routine magnesium 0 Yes 400mg 400 mg, Univ ers oxide -05 Oral, BID, ity of (MAG-OX 13:00: First dose [place] 400) tablet 00 on Sun Medica l 400 mg 12/06/21 at Branch 0800, Until Discontinu ed, Routine ipratropium 0 Yes 3mL 3 mL, [place] [facility] -albuteroL 05 Inhalation ity of (DUONEB) 13:00: , QID, [place] 0.5 mg-3 00 First dose Medic al mg(2.5 mg on Sun [place] base)/3 mL 12/06/21 at nebulizer 0800, solution 3 Until mL Discontinu ed, Routine lactobacill 0 Yes .5mg 0.5 mg, Uni vers us 405 Oral, BID, ity of acidophilus 13:00: First dose [place] tablet 0.5 00 on Sun Medical mg 12/06/21 at Branch 0800, Until Discontinu ed, Routine levoFLOXaci 2021- No 750mg 750 mg, IV Univers n in D5W 12-06 04-05 Piggyback, ity of (LEVAQUIN) 09:30: 13:39 Q24H ABX, [place] 750 mg/150 00 :25 First dose Med ical mL on Piggyback 12/06/21 at 750 mg 0430, Until Discontinu ed, Administer over 90 Minutes, 150 mL
Reas on for Anti-Infec tive: Empiric Therapy for Suspected Infection< br>Empiric Therapy Site: Respirator y
Durat ion of therapy: 7 days
Re stricted use approved by: [employer] PROVIDER traMADoL 2021- No 50mg 50 mg, Univer s (ULTRAM) 12-06-05 Oral, ity of tablet 50 08:14: 16:44 [...] [facility] propion-lavon 12-05 Inhalation it y of meteroL 13:00: , Q12H, [place] (ADVAIR) 00 First dose Medic al 250-50 on Sun mcg/dose 12/05/21 at inhalation 0800, disk 1 Puff Until Discontinu ed, Routine lurasidone 2021- No Take by Uni vers HCl (LATUDA 12-05-04 mouth. ity o f ORAL) 05:43: 00:00 [place] 55 :00 [facility] acetylcyste 2021- No 4mL 800 mg (4 Univers ine 12-05 04-07 mL), ity of (MUCOMYST) 05:00: 04:59 Inhalation [place] 200 mg/mL 00 :00 , Q6H, 12 Medic al (20 %) doses, Branch solution First dose 800 mg on Sun12/05/21 at 0000, Last dose on Sun12/07/21 at 1800, Routine cefTRIAXone Yes 1000mg 1,000 mg, Univers (ROCEPHIN) 12-05 IV ity of 1,000 mg in 03:00: Piggyback, [place] NaCl 0.9% 00 Q24H ABX, Medic al (NS) 50 mL First dose [facility] MINI-BAG on Sun12/04/21 at 2200, Until Discontinu ed, Administer over 30 Minutes, 50 mL
Reas on for Anti-Infec tive: Empiric Therapy for Suspected Infection< br>Empiric Therapy Site: Respirator y
Durat ion of therapy: 72 hours ipratropium 0 Yes 3mL 3 mL, Unive rs -albuteroL 12-05 Inhalation ity of (DUONEB) 02:00: , Q6HPRN, [place] 0.5 mg-3 00 Starting Medical mg(2.5 mg on Sun Branch base)/3 mL 12/04/21 at nebulizer 2100, solution 3 Until mL Discontinu ed, Routine, Wheezing methylpredn 0 Yes 60mg 60 mg, Univ ers isolone sod 12-05 Slow IV ity o f succ 02:00: Push, [place] (SOLU-MEDRO 00 Q12H, Medical L) First dose Branch injection on Sun 60 mg 12/04/21 at 2100, Until Discontinu ed, Routine HYDROcodone Yes 1{tbl} 1 tablet, Univers -acetaminop 12-05 Oral, ity of hen (NORCO) 01:55: Q6HPRN, [place] as 10-325 mg 51 Starting Medica l tablet 1 on Sun Branch tablet 12/04/21 at 2054, Until Discontinu ed, Routine, Pain (scale 4-6) iopamidol 2021- No [id number] 100mL 100 mL, Univers (ISOVUE 12-04-03 Intravenou ity o f 370-500 mL) 20:43: [...] No 20mg 20 mg, Univ ers (DELTASONE) 4-03 04-04 Oral, ity of tablet 20 14:00: 01:54 DAILY, [place] mg 00 :23 First dose Medical on [facility] 12/04/21 at 0900, Until Discontinu ed, Routine lurasidone 0 Yes 20mg 20 mg, Unive rs (LATUDA) 12-04 Oral, ity of tablet 20 12:30: QAM-0730, [place] mg 00 First dose Medical on [facility] 12/04/21 at 0730, Until Discontinu ed doxycycline 0 Yes 100mg 100 mg, Un guillermina hyclate 12-04 Oral, ity of (Vibramycin 11:00: Q12HA2, [place] as ) capsule 00 First dose Medi dayna 100 mg on [facility] 12/04/21 at 0600, Until Discontinu ed, SE
Re ason for Anti-Infec tive: Empiric Therapy for Suspected Infection< br>Empiric Therapy Site: Respirator y
Du ration of therapy: 7 days NaCl 0.9% 2021- No 500mL at 100 Univ ers (NS) IV 12-04 04-03 mL/hr, IV ity of infusion 11:00: 15:59 Infusion, [place] as 500 mL 00 :00 CONTINUOUS Medical , Starting Branch on [place] 12/04/21 at 0600, Until [place] 12/04/21 at 1059, Routine zolpidem 0 Yes 5mg 5 mg, Univers (AMBIEN) 12-04 Oral, ity of tablet 5 mg 06:14: QHSPRN, [place] as 57 Starting Medical on [facility] 12/04/21 at 0114, Until Discontinu ed, Routine, Insomnia docusate 0 Yes 100mg 100 mg, Unive rs (COLACE) 12-04 Oral, BID, ity o f capsule 100 01:00: First dose [place] mg 00 on [facility] 12/03/21 at Branch 2000, Until Discontinu ed, Routine busPIRone 0 Yes 5mg 5 mg, Univers (BUSPAR) 12-04 Oral, BID, ity o f tablet 5 mg 01:00: First dose [place] 00 on [facility] 12/03/21 at Branch 2000, Until Discontinu ed, Routine ipratropium 2021-0 2021- No 3mL 3 mL, Univ ers -albuteroL 12-04-04 Inhalation it y of (DUONEB) 01:00: 01:56 , QID, [place] 0.5 mg-3 00 :47 First dose Medic al mg(2.5 mg on [facility] base)/3 mL 12/03/21 at nebulizer 2000, solution 3 Until mL Discontinu ed, Routine ondansetron Yes 4mg 4 mg, Slow Univers (ZOFRAN 12-03 IV Push, ity of (PF)) 22:05: Q6HPRN, [place] injection 4 11 Starting Medi dayna mg on [facility] Branch 12/03/21 at 1705, Until Discontinu ed, Routine, Nausea and Vomiting (N/V) HYDROcodone 2021- No 1{tbl} 1 tablet, Univers -acetaminop 12-03 Oral, ity of hen (NORCO 22:05: 01:56 Q6HPRN, [place] as 5) 5-325 mg 07 :02 Starting Medi dayna tablet 1 on [facility] tablet 12/03/21 at 1705, Until 12/04/21 at 2055, Routine, Pain (scale 4-6) acetaminoph 0 Yes 650mg 650 mg, Un guillermina en 02 Oral, ity of (TYLENOL) 22:05: Q6HPRN, [place] tablet 650 04 Starting Medic al mg on [facility] 12/03/21 at 1705, Until Discontinu ed, [...] :33 First dose Medi dayna %) on [facility] nebulizer 12/03/21 at solution 1600, 2.5 mg Until Discontinu ed, Routine ipratropium 2021- No .5mg 0.5 mg, Un guillermina (ATROVENT) 12-03 Inhalation it y of 0.02 % 21:00: 22:06 , QID, [place] nebulizer 00 :24 First dose Medi dayna solution on [facility] Branch 0.5 mg 12/03/21 at 1600, Until Discontinu ed, Routine predniSONE Yes 30mg 30 mg, Unive rs (DELTASONE) 312 Oral, ity of tablet 30 15:00: DAILY, [place] mg 00 First dose Medical (after Branch last modificati on) on [facility] 11/12/21 at 0900, Until Discontinu ed, Routine piperacilli Yes 3.375g 3.375 g, [facility] n-tazobacta 11 IV ity of m (ZOSYN) 23:30: Piggyback, [...] (LATUDA 3-11 mouth. ity of ORAL) 17:32: [address] lurasidone 0 Yes Take by Univ ers HCl (LATUDA 3-11 mouth. ity of ORAL) 17:32: [address] lurasidone 0 Yes Take by Univ ers HCl (LATUDA 3-11 mouth. ity of ORAL) 17:32: [address] KCL 2021-0 202- No 20meq 20 mEq, Univers (KLOR-CON 11-11-11 Oral, ity of M20) tablet 02:00: 02:20 ONCE, 1 [place] 20 mEq 00 :00 dose, On Medical [place] Branch 11/10/21 at 2000, Routine predniSONE 2021-0 Yes [id number] 20mg Take 1 Univers 20 mg -11 tablet by ity of tablet 00:00: mouth [place] 00 daily. Medical Branch predniSONE Yes [id number] 20mg Take 1 Univers 20 mg 3-11 tablet by ity of tablet 00:00: mouth [place] 00 daily. Medical Branch predniSONE 2021-0 2021- No [id number] 20mg Take 1 Univers 20 mg 3-11 04-04 tablet by ity of tablet 00:00: 00:00 mouth [place] 00 :00 daily. Medical Branch piperacilli 2021- No 3.375g 3.375 g, Univers n-tazobacta 11-1011 IV ity of m (ZOSYN) 22:00: 21:01 Piggyback, [place] 3.375 g in 00 :00 Q8H ABX, Medic al NaCl 0.9% First dose Bran ch (NS) 100 mL on [facility] VIAL-MATE 11/10/21 at 1600, Until Discontinu ed, Administer over 4 Hours, 100 mL
Reas on for Anti-Infec tive: Empiric Therapy for Suspected Infection< br>Empi leandro Therapy Site: Respirator y
Durat ion of therapy: 72 hours enoxaparin Yes 40mg 40 mg, Unive rs (LOVENOX) 3-10 Subcutaneo ity of injection 15:00: [place], DAILY, [place] 40 mg 00 First dose Medical on [facility] 11/10/21 at 0900, Until Discontinu ed, Routine hydroCHLORO Yes 12.5mg 12.5 mg, Univers thiazide 3-10 Oral, ity of (ESIDRIX) 15:00: DAILY, [place] capsule 00 First dose Medica l 12.5 mg on [facility] 11/10/21 at 0900, Until Discontinu ed, Routine amLODIPine Yes 10mg 10 mg, Unive rs (NORVASC) 3-10 Oral, ity of tablet 10 15:00: DAILY, [place] mg 00 First dose Medical on [facility] 11/10/21 at 0900, Until Discontinu ed, Routine predniSONE 2021- No 40mg 40 mg, Univ ers (DELTASONE) 3-10 -11 Oral, ity of tablet 40 15:00: 17:05 DAILY, [place] mg 00 :49 First dose Medical on [facility] 11/10/21 at 0900, Until Discontinu ed, Routine docusate 2021-0 Yes 100mg 100 mg, Unive rs (COLACE) 3-10 Oral, BID, ity o f capsule 100 14:00: First dose [place] mg 00 on [facility] 11/10/21 at Branch 0800, Until Discontinu ed, Routine busPIRone 2021-0 Yes 5mg 5 mg, Univers (BUSPAR) 3-10 Oral, BID, ity o f tablet 5 mg 14:00: First dose [place] 00 on [facility] 11/10/21 at Branch 0800, Until Discontinu ed, Routine lurasidone 2021-0 Yes 20mg 20 mg, Unive rs (LATUDA) 3-10 Oral, ity of tablet 20 13:30: QA-0730, [place] as mg 00 First dose Medical on [facility] 11/10/21 at 0730, Until Discontinu ed morpHINE 2021-0 Yes 2mg 2 mg, Slow Uni vers injection 2 3-10 IV Push, ity of mg 07:05: Q4HPRN, [place] 58 Starting Medical on [facility] 11/10/21 at 0105, Until Discontinu ed, Routine, Pain (scale 7-10) ondansetron 2021-0 Yes 4mg 4 mg, Slow Univers (ZOFRAN 3-10 IV Push, ity of (PF)) 05:19: Q6HPRN, [place] injection 4 35 Starting Medi dayna mg on Sun Branch 11/09/21 at 2319, Until Discontinu ed, Routine, Nausea and Vomiting (N/V) HYDROcodone 2021-0 2021- No 1{tbl} 1 tablet, Univers -acetaminop 3-10 03-12 Oral, ity of hen (NORCO 05:19: 05:18 Q6HPRN, [place] as 5) 5-325 mg 30 :30 Starting Medi dayna tablet 1 on Sun Branch tablet 11/09/21 at 2319, Until Sun11/11/21 at 2318, Routine, Pain (scale 4-6) acetaminoph 2021-0 Yes 650mg 650 mg, Un guillermina en 3-10 Oral, ity of (TYLENOL) 05:19: Q6HPRN, [place] tablet 650 28 Starting Medic al mg on Sun Branch 11/09/21 at 2319, Until Discontinu ed, Routine, Pain (scale 1-3) albuterol Yes 2{puff} 2 Puff, Un guillermina (VENTOLIN) 3-10 Inhalation ity of inhaler 2 05:17: , Q6HPRN, [place] as Puff 52 Starting Medical on Wed Branch 11/09/21 at 2317, Until Discontinu ed, Routine, Wheezing, Shortness of Breath iopamidol 2021- No [id number] 100mL 100 mL, Univers (ISOVUE 11-10 33462 Intravenou ity of 370-500 mL) 04:43: 04:44 s, ONCE, 1 [place] injection 00 :00 dose, On Medica l 100 mL 11/09/21 Branch at 2300, Routine morpHINE No 4mg [...] 1000mL at 999 Uni vers (NS) bolus 3 03-10 mL/hr, ity of infusion 03:45: 05:33 [...] 4 mg, Slow Un guillermina injection 4 10 03-10 IV Push, ity of mg 03:00: 01:58 ONCE, 1 [place] 00 :00 dose, On Medical Sun11/09/21 Branch at 2100, STAT albuterol 2021-0 Yes 2.5mg 2.5 mg, Univ ers (PROVENTIL) 3-10 Inhalation it y of 2.5 mg /3 02:00: , QID, [place] mL (0.083 00 First dose Medi dayna %) on Sun nebulizer 11/09/21 at solution 2000, 2.5 mg Until Discontinu ed, Routine ipratropium 2021-0 Yes .5mg 0.5 mg, Uni vers (ATROVENT) 3-10 Inhalation ity of 0.02 % 02:00: , QID, [place] nebulizer 00 First dose Medi dayna solution on Sun Branch 0.5 mg 11/09/21 at 2000, Until Discontinu ed, Routine hydroCHLORO 2021-0 Yes [id number] 12.5mg Take 1 Univers thiazide 2-22 capsule by ity o f 12.5 mg 00:00: mouth [place] capsule 00 daily. [facility] Branch hydroCHLORO 2021-0 Yes [id number] 12.5mg Take 1 Univers thiazide 2-22 capsule by ity o f 12.5 mg 00:00: mouth [place] capsule 00 daily. Medical Branch hydroCHLORO 2021-0 Yes [id number] 12.5mg Take 1 Univers thiazide 2-22 capsule by ity o f 12.5 mg 00:00: mouth [place] capsule 00 daily. [facility] Branch hydroCHLORO 2021-0 Yes [id number] 12.5mg Take 1 Univers thiazide 2-22 capsule by ity o f 12.5 mg 00:00: mouth [place] capsule 00 daily. [facility] Branch hydroCHLORO 2021-0 Yes [id number] 12.5mg Take 1 Univers thiazide 2-22 capsule by ity o f 12.5 mg 00:00: mouth [place] capsule 00 daily. [facility] Branch hydroCHLORO 2021-0 Yes [id number] 12.5mg Take 1 Univers thiazide 2-22 capsule by ity o f 12.5 mg 00:00: mouth [place] capsule 00 daily. Medical Branch hydroCHLORO 0 Yes [id number] 12.5mg Take 1 Univers thiazide 2-22 capsule by ity o f 12.5 mg 00:00: mouth [place] capsule 00 daily. Medical Branch hydroCHLORO 2021-0 2021- No [id number] 12.5mg Take 1 Univers thiazide 2-22 04-04 capsule by ity of 12.5 mg 00:00: 00:00 mouth [place] capsule 00 :00 daily. Medical Branch hydroCHLORO 2021-0 2021- No [id number] 12.5mg Take 1 Univers thiazide 2-22 02-21 capsule by ity of 12.5 mg 00:00: 00:00 mouth [place] capsule 00 :00 daily for Medical 30 days. Branch hydroCHLORO 2021-2021- No [id number] 12.5mg Take 1 Univers thiazide 2-22 02-21 capsule by ity of 12.5 mg 00:00: 00:00 mouth [place] capsule 00 :00 daily for Medical 30 days. Branch lurasidone Yes Take by Univ ers HCl (LATUDA 2-21 mouth. ity of ORAL) 17:53: [place] [address] Medical Branch lurasidone Yes Take by Univ ers HCl (LATUDA 2-21 mouth. ity of ORAL) 17:53: [address] Branch lurasidone Yes Take by Univ ers HCl (LATUDA 2-21 mouth. ity of ORAL) 17:53: [address] Branch lurasidone Yes Take by Univ ers HCl (LATUDA 2-21 mouth. ity of ORAL) 10:59: [address] Branch zolpidem 0 2021- No 5mg 5 mg, Univers (AMBIEN) -24 10-21 Oral, ity of tablet 5 mg 04:00: 03:07 ONCE, 1 [place] 00 :00 dose, On Medical Sun Branch 10/23/21 at 2200, Routine docusate Yes [id number] 100mg Take 1 U nivers 100 mg 2-21 capsule by ity of capsule 00:00: mouth 2 (two) Medical times Branch daily. busPIRone 5 2022-0 Yes [id number] 5mg Take 1 Univers mg tablet 2-21 tablet by ity o f 00:00: mouth (two) Medical times Branch daily. chlorhexidi 2021-0 Yes [id number] 15mL Swish and Univers ne 0.12 % 2-21 spit out ity of mouthwash 00:00: 15 mL 2 (two) Medical times Branch daily. albuterol 2021-0 Yes [id number] 2{puff} Inhale 2 Univers 90 2-21 Puffs ity of mcg/actuati 00:00: every 6 José Miguel as on inhaler 00 (six) Medical hours as Branch needed for Wheezing or Shortness of Breath. predniSONE 2021-0 Yes [id number] 40mg Take 2 Univers 20 mg 2-21 tablets by ity of tablet 00:00: mouth daily. Medical Branch docusate 2021-0 Yes [id number] 100mg Take 1 U nivers 100 mg 2-21 capsule by ity of capsule 00:00: mouth (two) Medical times Branch daily. busPIRone 5 2021-0 Yes [id number] 5mg Take 1 Univers mg tablet 2-21 tablet by ity o f 00:00: mouth (two) Medical times Branch daily. chlorhexidi 2021-0 Yes [id number] 15mL Swish and Univers ne 0.12 % 2-21 spit out ity of mouthwash 00:00: 15 mL 2 (two) Medical times Branch daily. albuterol 2021-0 Yes [id number] 2{puff} Inhale 2 Univers 90 2-21 Puffs ity of mcg/actuati 00:00: every 6 José Miguel as on inhaler 00 (six) Medical hours as Branch needed for Wheezing or Shortness of Breath. predniSONE 2021-0 Yes [id number] 40mg Take 2 Univers 20 mg 2-21 tablets by ity of tablet 00:00: mouth 00 daily. Medical Branch docusate 2021-0 Yes [id number] 100mg Take 1 U nivers 100 mg 2-21 capsule by ity of capsule 00:00: mouth 2 (two) Medical times Branch daily. busPIRone 5 2021-0 Yes [id number] 5mg Take 1 Univers mg tablet 2-21 tablet by ity o f 00:00: mouth 2 (two) Medical times Branch daily. chlorhexidi 2021-0 Yes [id number] 15mL Swish and Univers ne 0.12 % 2-21 spit out ity of mouthwash 00:00: 15 mL 2 (two) Medical times Branch daily. albuterol 2021-0 Yes [id number] 2{puff} Inhale 2 Univers 90 2-21 Puffs ity of mcg/actuati 00:00: every 6 [place] as on inhaler 00 (six) Medical hours as Branch needed for Wheezing or Shortness of Breath. predniSONE 2021-0 Yes [id number] 40mg Take 2 Univers 20 mg 2-21 tablets by ity of tablet 00:00: mouth daily. Medical Branch docusate 2021-0 Yes [id number] 100mg Take 1 U nivers 100 mg 2-21 capsule by ity of capsule 00:00: mouth (two) Medical times Branch daily. busPIRone 5 2021-0 Yes [id number] 5mg Take 1 Univers mg tablet 2-21 tablet by ity o f 00:00: mouth (two) Medical times Branch daily. chlorhexidi 2021-0 Yes [id number] 15mL Swish and Univers ne 0.12 % 2-21 spit out ity of mouthwash 00:00: 15 mL 2 (two) Medical times Branch daily. albuterol 2021-0 Yes [id number] 2{puff} Inhale 2 Univers 90 2-21 Puffs ity of mcg/actuati 00:00: every 6 José Miguel as on inhaler 00 (six) Medical hours as Branch needed for Wheezing or Shortness of Breath. docusate 2021-0 Yes [id number] 100mg Take 1 U nivers 100 mg 2-21 capsule by ity of capsule 00:00: mouth (two) Medical times Branch daily. albuterol 2021-0 Yes [id number] 2{puff} Inhale 2 Univers 90 2-21 Puffs ity of mcg/actuati 00:00: every 6 José Miguel as on inhaler 00 (six) Medical hours as Branch needed for Wheezing or Shortness of Breath. busPIRone 5 2022-0 Yes [id number] 5mg Take 1 Univers mg tablet 2-21 tablet by ity o f 00:00: mouth (two) Medical times Branch daily. chlorhexidi 2-0 Yes [id number] 15mL Swish and Univers ne 0.12 % 2-21 spit out ity of mouthwash 00:00: 15 mL 2 (two) Medical times Branch daily. docusate 2022-0 Yes [id number] 100mg Take 1 U nivers 100 mg 2-21 capsule by ity of capsule 00:00: mouth (two) Medical times Branch daily. busPIRone 5 2021-0 Yes [id number] 5mg Take 1 Univers mg tablet 2-21 tablet by ity o f 00:00: mouth (two) Medical times Branch daily. chlorhexidi 2-0 Yes [id number] 15mL Swish and Univers ne 0.12 % 2-21 spit out ity of mouthwash 00:00: 15 mL (two) Medical times Branch daily. albuterol 2-0 Yes [id number] 2{puff} Inhale 2 Univers 90 2-21 Puffs ity of mcg/actuati 00:00: every 6 [place] as on inhaler 00 (six) Medical hours as Branch needed for Wheezing or Shortness of Breath. docusate 2-0 Yes [id number] 100mg Take 1 U nivers 100 mg 2-21 capsule by ity of capsule 00:00: mouth (two) Medical times Branch daily. busPIRone 5 2-0 Yes [id number] 5mg Take 1 Univers mg tablet 2-21 tablet by ity o f 00:00: mouth 2 (two) Medical times Branch daily. chlorhexidi 2-0 Yes [id number] 15mL Swish and Univers ne 0.12 % 2-21 spit out ity of mouthwash 00:00: 15 mL 2 (two) Medical times Branch daily. albuterol 2022-0 Yes [id number] 2{puff} Inhale 2 Univers 90 2-21 Puffs ity of mcg/actuati 00:00: every 6 [place] as on inhaler 00 (six) Medical hours as Branch needed for Wheezing or Shortness of Breath. docusate 2021- No [id number] 100mg Take 1 Univers 100 mg 10-24- capsule by ity of capsule 00:00: 00:00 mouth 2 [place] 00 :00 (two) Medical times Branch daily. busPIRone 5 2021- No [id number] 5mg Take 1 Univers mg tablet 10-24- tablet by ity of 00:00: 00:00 mouth 2 [place] 00 :00 (two) Medical times Branch daily. chlorhexidi 2021- No [id number] 15mL Swish and Univers ne 0.12 % 10-24- spit out ity o f mouthwash 00:00: 00:00 15 [place] 2 [place] :[place] (two) Medical times Branch daily. albuterol 2021- No [id number] 2{puff} Inhale 2 Univers 90 10-24-04 Puffs ity of mcg/actuati 00:00: 00:00 every 6 [place] inhaler 00 :00 (six) Medical hours as Branch needed for Wheezing or Shortness of Breath. predniSONE 2021- No [id number] 40mg Take 2 Univers 20 mg - 03-24 tablets by ity of tablet 00:00: 04:59 mouth [place] 00 :00 daily for Medical 30 days. Branch predniSONE 2021- No [id number] 40mg Take 2 Univers 20 mg - [...] s: acute pain busPIRone 5 2021- No [id number] 5mg Take 1 Univers mg tablet 10-24- tablet by ity of 00:00: 00:00 mouth 2 [place] 00 :00 (two) Medical times Branch daily for 30 days. chlorhexidi 2021- No [id number] 15mL Swish and Univers ne 0.12 % 10-24 spit out ity o f mouthwash 00:00: 00:00 15 [place] 2 [place] 00 :[place] (two) Medical times Branch daily for 7 days. albuterol 2021- No [id number] 2{puff} Inhale 2 [facility] 90 10-24- Puffs ity of mcg/actuati 00:00: 00:00 every 6 [place] inhaler 00 :00 (six) Medical hours as Branch needed for Wheezing or Shortness of Breath. predniSONE 2021- No [id number] 40mg Take 2 [facility] 20 mg 10-24 tablets by ity of tablet 00:00: 00:00 mouth [place] 00 :00 daily for Medical 30 days. Branch busPIRone 5 2021- No [id number] 5mg Take 1 Univers mg tablet 10-24- tablet by ity of 00:00: 00:00 mouth 2 [place] 00 :00 (two) Medical times Branch daily for 30 days. chlorhexidi 2021- No [id number] 15mL Swish and Univers ne 0.12 % 10-24 spit out ity o f mouthwash 00:00: 00:00 15 [place] 2 [place] 00 :00 (two) Medical times Branch daily for 7 days. phenoL 2021- Yes 1{spray 1 [place], Univ ers (SORE 2-20 } Oral, PRN, ity of THROAT 19:03: Starting [place] (PHENOL)) 59 on Sun Medical 1.4 % spray 10/23/21 at Br anch bottle 1 1303, [place] Until Discontinu ed, Routine, Sore throat phenoL 2021-0 Yes 1{spray 1 [place], Univ ers (SORE 2-20 } Oral, PRN, ity of THROAT 19:03: Starting [place] (PHENOL)) 59 on [facility] 1.4 % spray 10/23/21 at Br anch bottle 1 1303, [place] Until Discontinu ed, Routine, Sore throat zolpidem 2021-0 2022- No 5mg 5 mg, Univers (AMBIEN) -20 02-20 Oral, ity of tablet 5 mg 04:00: 03:54 ONCE, 1 [place] 00 :[place] dose, On Medical Sat Branch 10/22/21 at 2200, Routine methylpredn 2021-0 Yes 125mg 125 mg, Un guillermina isolone sod 2-19 Intravenou it y of succ 20:00: s, Q8H, [place] (SOLU-MEDRO 00 First dose Me dical L) (after Branch injection last 125 mg modificati on) on 10/22/21 at 1400, Until Discontinu ed, Routine methylpredn 2-0 Yes 125mg 125 mg, Un guillermina isolone sod 2-19 Intravenou it y of succ 20:00: s, Q8H, [place] (SOLU-MEDRO 00 First dose Me dical L) (after Branch injection last 125 mg modificati on) on 10/22/21 at 1400, Until Discontinu ed, Routine hydroCHLORO 2022-0 Yes 12.5mg 12.5 mg, Univers thiazide -19 Oral, ity of (ESIDRIX) 15:30: DAILY, [place] [...] 10-22 Oral, ity of (ESIDRIX) 15:30: DAILY, [place] capsule 00 First dose Medica l 12.5 mg on [facility] Branch 10/22/21 at 0930, Until Discontinu ed, Routine amLODIPine 2021-0 Yes 10mg 10 mg, Unive rs (NORVASC) 10-22 Oral, ity of tablet 10 15:30: DAILY, [place] mg 00 First dose Medical on [facility] Branch 10/22/21 at 0930, Until Discontinu ed, Routine acetaminoph 2021-0 Yes 650mg 650 mg, Un guillermina en 10-22 Oral, ity of (TYLENOL) 09:54: Q6HPRN, [place] tablet 650 49 Starting Medic al mg on [facility] Branch 10/22/21 at 0354, Until Discontinu ed, Routine, Pain (scale 1-3) acetaminoph 2021-0 Yes 650mg 650 mg, Un guillermina en 10-22 Oral, ity of (TYLENOL) 09:54: Q6HPRN, [place] tablet 650 49 Starting Medic al mg on [facility] Branch 10/22/21 at 0354, Until Discontinu [...] ty of succ 19:00: 15:22 s, Q6H, [place] (SOLU-MEDRO 00 :22 First dose Me dical [...] ity o f mg/mL) 18:01: on Sun [place] (ADRENALIN) 10/21/21 at Me dical injection 1201, Branch Until Discontinu ed, Routine, Intra-op EPINEPHrine 2021-0 Yes PRN, Univer s 1:1,000 (1 2-18 Starting ity o f mg/mL) 18:01: on Sun [place] (ADRENALIN) 00 10/21/21 at Me dical injection 1201, Branch Until Discontinu ed, Routine, Intra-op ondansetron 2021-0 Yes 4mg 4 mg, Slow Univers (ZOFRAN 18 IV Push, ity of (PF)) 17:19: PRN, 1 [place] injection 4 50 dose, Medical mg Starting Branch on Sun10/21/21 at 1119, Until Discontinu ed, Routine, Nausea and Vomiting (N/V), PACU ondansetron 2021-0 Yes 4mg 4 mg, Slow Univers (ZOFRAN 2-18 IV Push, ity of (PF)) 17:19: PRN, 1 [place] injection 4 50 dose, Medical mg Starting Branch on Sun10/21/21 at 1119, Until Discontinu ed, Routine, Nausea and Vomiting (N/V), PACU NaCl 0.9% 2021-0 Yes PRN, Univers (NS) 10-21 Starting ity of injection 17:01: on Sun [place] [id number] 10/21/21 at [facility] [address], [place] Until Discontinu ed, Routine, Intra-op NaCl 0.9% 2021-0 Yes PRN, Univers (NS) 18 Starting ity of injection 17:01: on Sun [place] [address] 10/21/21 at [facility] [address], [place] Until Discontinu ed, Routine, Intra-op morpHINE 2021-0 Yes 4mg 4 mg, Slow Uni vers injection 4 2-17 IV Push, ity of mg 23:22: Q4HPRN, [place] [id number] Starting Medical on [facility] 10/20/21 at 1722, Until Discontinu ed, Routine, Pain (scale 7-10) morpHINE 2021-0 Yes 4mg 4 mg, Slow Uni vers injection 4 -17 IV Push, ity of mg 23:22: [place] [address] Starting Medical on [facility] 10/20/21 at 1722, Until Discontinu ed, Routine, Pain (scale 7-10) methylpredn 2021-0 2021- No 125mg 125 mg, U nivers isolone sod 10-20 Intravenou i ty of succ 20:00: 17:53 s, Q8H, [place] (SOLU-MEDRO 00 :24 First dose Me dical L) (after Branch injection last 125 mg modificati on) on [facility] 10/20/21 at 1400, Until Discontinu ed, Routine furosemide 2021- No 40mg 40 mg, Univ ers (LASIX) 10-20 Slow IV ity of injection 18:00: 18:19 Push, [place] 40 mg 00 :00 ONCE, 1 Medical dose, On Branch [facility] 10/20/21 at 1200, Routine pantoprazol 0 Yes 40mg 40 mg, Univ ers e 10-20 Oral, ity of (PROTONIX) 16:45: DAILY, [place] EC tablet 00 First dose Medi dayna 40 mg on [facility] Branch 10/20/21 at 1045, Until Discontinu ed, Routine pantoprazol 0 Yes 40mg 40 mg, Univ ers e 2-17 Oral, ity of (PROTONIX) 16:45: DAILY, [place] EC tablet 00 First dose Medi dayna 40 mg on [facility] 10/20/21 at 1045, Until Discontinu ed, Routine alum-mag 2021-0 Yes 30mL 30 mL, Univers hydroxide-s 2-17 Oral, ity of imeth 16:37: Q6HPRN, [place] (MAALOX 49 Starting Medical PLUS / on [facility] MAG-AL 10/20/21 at [facility]) 1037, 200-200-20 Until mg/5 mL Discontinu suspension ed, 30 mL Routine, Indigestio n alum-mag 0 Yes 30mL 30 mL, Univers hydroxide-s 2-17 Oral, ity of imeth 16:37: Q6HPRN, [place] (MAALOX 49 Starting Medical PLUS / on [facility] MAG-AL 10/20/21 at [facility]) [...] at 0900, Until Discontinu ed, Routine docusate 2022-0 Yes 100mg 100 mg, Unive rs (COLACE) 2-17 Oral, BID, ity o f capsule 100 02:00: First dose [place] mg 00 on [facility] 10/19/21 at Branch 1999, Until Discontinu ed, Routine docusate Yes 100mg [...] 00 :00 dose, On Medi dayna mg [facility] Branch 10/19/21 at 0245, Routine pantoprazol No [...] mg 00 :00 1 dose, On Medical [facility] 10/17/21 at 1230, Routine methylPREDN No 125mg 125 mg, U nivers ISolone 10-17 Slow IV ity of sodium 18:00: 18:28 [place], Q6H, [place] 00 :52 First dose Medi dayna (SOLU-MEDRO on [facility] Branch L) 10/17/21 at injection 1200, 125 [...] [place] mg 00 :38 Starting Medical on [facility] 10/17/21 at 1100, Until Sun10/19/21 at 1133, Routine, Anxiety, Agitation ipratropium 2021-0 Yes 3mL 3 mL, Unive rs -albuteroL - Inhalation ity of (DUONEB) 14:00: , Q4H, [place] 0.5 mg-3 00 First dose Medic al mg(2.5 mg on [facility] Branch base)/3 mL 10/17/21 at nebulizer 0800, solution 3 Until mL Discontinu ed, Routine ipratropium 2021-0 Yes 3mL 3 mL, Unive rs -albuteroL 2-14 Inhalation ity of (DUONEB) 14:00: , Q4H, [place] 0.5 mg-3 00 First dose Medic al mg(2.5 mg on [facility] Branch base)/3 mL 10/17/21 at nebulizer 0800, solution 3 Until mL Discontinu ed, Routine lidocaine 2021- No 5mL 5 mL, Univer s 1% (PF) 10-17 Subcutaneo ity o f (XYLOCAINE) 13:45: 13:45 us, ONCE, [place] injection 5 00 :00 1 dose, On Me dical mL [facility] 10/17/21 at 0745, Routine NaCl 0.9% 0 Yes 10mL 10 mL, Univer s (NS) 10-17 Slow IV ity of injection 13:27: Push, PRN, [place] 10 mL 33 Starting Medical on [facility] 10/17/21 at 0727, Until Discontinu ed, Routine, line maintenanc e NaCl 0.9% 2021-0 Yes 10mL 10 mL, Univer s (NS) 10-17 Slow IV ity of injection 13:27: Push, PRN, [place] 10 mL 33 Starting Medical on [facility] 10/17/21 at 0727, Until Discontinu ed, Routine, line maintenanc e haloperidol 2021- No 5mg 5 mg, Slow Univers lactate 10-17 IV Push, ity of (HALDOL) 04:00: 03:03 ONCE, 1 [place] injection 5 00 :00 dose, On Medi dayna mg [facility] 10/16/21 at 2200, Routine busPIRone 2021-0 Yes 5mg 5 mg, Univers (BUSPAR) 2-14 Oral, BID, ity o f tablet 5 mg 02:00: First dose 00 on [facility] 10/16/21 at Branch 2000, Until Discontinu ed, Routine busPIRone 2021-0 Yes 5mg 5 mg, Univers (BUSPAR) 14 Oral, BID, ity o f tablet 5 mg 02:00: First dose 00 on [facility] 10/16/21 at Branch 1999, Until Discontinu ed, Routine methylpredn 2021- No 60mg 60 mg, Uni vers isolone sod 10-16 Slow IV ity of succ 23:00: 17:25 Push, Q8H, [place] (SOLU-MEDRO 00 :30 First dose Me dical L) on [facility] injection 10/16/21 at 60 mg 1700, Until Discontinu ed, Routine HYDROcodone 2021- No 1{tbl} 1 tablet, Univers -acetaminop 10-16 Oral, ity of hen (NORCO 19:49: 17:01 Q6HPRN, [place] as 5) 5-325 mg 46 :51 Starting Medi dayna tablet 1 on [place] Branch tablet 10/16/21 at 1349, Until Sun10/21/21 [...] .
LORazepam 2021- No .5mg 0.5 mg, [place] [facility] ers (ATIVAN) 10-15 Slow IV ity of injection 21:43: 16:47 Push, [place] 0.5 mg 49 :31 [id number], Medical Starting Branch on 10/15/21 at 1543, Until 10/17/21 at 1047, Routine, Anxiety iopamidol 2021- No [id number] 100mL 100 mL, Univers (ISOVUE 10-15 Intravenou ity o f 370-500 mL) 20:30: 19:21 s, ONCE, 1 [place] injection 00 :00 dose, On Medica l 100 mL Sat Branch 10/15/21 at 1430, Routine enoxaparin 2021- No 40mg 40 mg, [place] [facility] ers (LOVENOX) 10-15 Subcutaneo ity of injection [...] ity of 1,000 mg in 09:15: 16:12 [place], [place] NaCl 0.9% 00 :17 Q12H ABX, Medic al (NS) 50 mL First dose [facility] MINI-BAG on 10/15/21 at 0315, Until [...] Push, ity of mg 08:04: 17:33 Q4HPRN, [place] 38 :44 Starting Medical on Sat Branch 10/15/21 at 0204, Until 10/19/21 at 1133, Routine, Pain (scale 7-10) methylPREDN 2021-0 Yes Follow [place] [facility] ers ISolone 4 2-03 schedule ity of mg tablets 00:00: [place] 00 [facility] Branch methocarbam 2021-0 Yes 500mg Take 500 U nivers oL 500 mg 2-03 mg by ity of tablet 00:00: mouth. [place] 00 Medical Branch methylPREDN 2021-0 Yes Follow Univ ers ISolone 4 2-03 schedule ity of mg tablets 00:00: [place] [facility] Branch methocarbam 2021-0 Yes 500mg Take 1 Uni vers oL 500 mg 2-03 tablet by ity o f tablet 00:00: mouth. Medical Branch methylPREDN 2021-0 Yes Follow Univ ers ISolone 4 2-03 schedule ity of mg tablets 00:00: [place] [facility] Branch methocarbam 2021-0 Yes 500mg Take 1 Uni vers oL 500 mg 2-03 tablet by ity o f tablet 00:00: mouth. Medical Branch methylPREDN 2021-0 Yes Follow Univ ers ISolone 4 2-03 schedule ity of mg tablets 00:00: [place] package [place] [facility] Branch methocarbam 2021-0 Yes 500mg Take 1 Uni vers oL 500 mg 2-03 tablet by ity o f tablet 00:00: mouth. Medical Branch methylPREDN 2021-0 Yes Follow Univ ers ISolone 4 2-03 schedule ity of mg tablets 00:00: on package [place] [facility] Branch methocarbam 2021-0 Yes 500mg Take 1 Uni vers oL 500 mg 2-03 tablet by ity o f tablet 00:00: mouth. Medical Branch zolpidem 10 0 Yes 10mg Take 10 mg Univers mg tablet 1-04 by mouth. ity o f 00:00: Medical Branch zolpidem 10 2021-0 Yes 10mg Take 1 Univ ers mg tablet 1-04 tablet by ity o f 00:00: mouth. [place] [facility] zolpidem 10 2021-0 Yes 10mg Take 1 Univ ers mg tablet 1-04 tablet by ity o f 00:00: mouth. Medical Branch zolpidem 10 2021-0 Yes 10mg Take 1 Univ ers mg tablet 1-04 tablet by ity o f 00:00: mouth. [place] [facility] zolpidem 10 2021-0 Yes 10mg Take 1 Univ ers mg tablet 1-04 tablet by ity o f 00:00: mouth. [place] [facility] ALPRAZolam 2021-0 Yes 1mg Take 1 mg Un guillermina 1 mg tablet 1-03 by mouth. ity of 00:00: [place] [facility] ALPRAZolam 0 Yes 1mg Take 1 Unive rs 1 mg tablet 1-03 tablet by ity of 00:00: mouth. [place] [facility] ALPRAZolam 0 Yes 1mg Take 1 Unive rs 1 mg tablet 1-03 tablet by ity of 00:00: mouth. [place] [facility] ALPRAZolam 0 Yes 1mg Take 1 Unive rs 1 mg tablet 1-03 tablet by ity of 00:00: mouth. [place] [facility] ALPRAZolam 0 Yes 1mg Take 1 Unive rs 1 mg tablet 1-03 tablet by ity of 00:00: mouth. [place] [facility] FLUoxetine 2020-09 Yes Take by Univ ers 40 mg 2-15 mouth. ity of capsule 00:00: [place] [facility] FLUoxetine 2020-09 Yes Take by Univ ers 40 mg 2-15 mouth. ity of capsule 00:00: [place] [facility] FLUoxetine 2020-09 Yes Take by Univ ers 40 mg 2-15 mouth. ity of capsule 00:00: [place] [facility] FLUoxetine 2020-09 Yes Take by Univ ers 40 mg 2-15 mouth. ity of capsule 00:00: [place] [facility] FLUoxetine 2020-09 Yes Take by Univ ers 40 mg 2-15 mouth. ity of capsule 00:00: [address] amLODIPine 2020-09 Yes 10mg Take 10 mg U nivers 10 mg 1-27 by mouth. ity of tablet 00:00: [address] amLODIPine 2020-09 Yes 10mg Take 1 Unive rs 10 mg 1-27 tablet by ity of tablet 00:00: mouth. [address] amLODIPine 2020-09 Yes 10mg Take 1 Unive rs 10 mg 1-27 tablet by ity of tablet 00:00: mouth. [address] amLODIPine 2020-09 Yes 10mg Take 1 Unive rs 10 mg 1-27 tablet by ity of tablet 00:00: mouth. [address] amLODIPine 2020-09 Yes 10mg Take 1 Unive rs 10 mg 1-27 tablet by ity of tablet 00:00: mouth. [address] medroxyprog 2021-1 No 1mg/mL esterone 0-21 150 mg/mL 00:00: intramuscul 00 ar suspension medroxyprog 2020-1 No 1mg/mL esterone 0-21 150 mg/mL 00:00: intramuscul 00 ar suspension medroxyprog 2020-1 No 1mg/mL esterone 0-21 150 mg/mL 00:00: intramuscul 00 ar suspension medroxyprog 2020-1 No 1mg/mL esterone 0-21 150 mg/mL 00:00: intramuscul 00 ar suspension metronidazo 2020-1 No 1mg le 500 mg 0-14 tablet 00:00: 00 metronidazo 2020-1 No 1mg le 500 mg 0-14 tablet 00:00: 00 metronidazo 1 No 1mg le 500 mg 0-14 tablet 00:00: 00 metronidazo 1 No 1mg le 500 mg 0-14 tablet 00:00: 00 Flagyl 500 2020-1 No 1mg mg tablet 0-11 00:00: 00 Flagyl 500 2020-1 No 1mg mg tablet 0-11 00:00: 00 Flagyl 500 2020-1 No 1mg mg tablet 0-11 00:00: 00 Dose 2020-1 No Unknown 0-11 00:00: 00 Flagyl 500 2020-1 No 1mg mg tablet 0-11 00:00: 00 Dose 2020-1 No Unknown 0-11 00:00: 00 Flagyl 500 2020-1 No 1mg mg tablet 0-11 00:00: 00 Flagyl 500 2020-1 No 1mg mg tablet 0-11 00:00: 00 medroxyprog 2021-0 No 1mg/mL esterone 6-24 150 mg/mL 00:00: intramuscul 00 ar suspension medroxyprog 1-0 No 1mg/mL esterone 6-24 150 mg/mL 00:00: intramuscul 00 ar suspension medroxyprog 1-0 No 1mg/mL esterone 6-24 150 mg/mL 00:00: intramuscul 00 ar suspension medroxyprog 1-0 No 1mg/mL esterone 6-24 150 mg/mL 00:00: intramuscul 00 ar suspension lurasidone 2019-0 Yes Take by [facility] ers HCl (LATUDA 7-17 mouth. ity of ORAL) 10:16: [place] 57 Medical Branch [facility] Yes SMILEY EXT AA Univers ne valerate 5-24 BID ity of 0.1 % 00:00: [place] ointment 00 Medical Branch [facility] Yes TK 1 C PO U nivers -hydrochlor 5-24 QAM ity of othiazide 00:00: [place] 37.5-25 mg 00 Medical per capsule Branch [facility] Yes SMILEY EXT AA Univers ne valerate 5-24 BID ity of 0.1 % 00:00: [place] ointment 00 Medical Branch [facility] Yes TK 1 C PO U nivers -hydrochlor 5-24 QAM ity of othiazide 00:00: [place] 37.5-25 mg 00 Medical per capsule Branch [facility] Yes SMILEY EXT AA Univers ne valerate 5-24 BID ity of 0.1 % 00:00: [place] ointment Medical Branch [facility] Yes TK 1 C PO U nivers -hydrochlor 5-24 QAM ity of othiazide 00:00: [place] 37.5-25 mg 00 Medical per capsule Branch [facility] Yes SMILEY EXT AA Univers ne valerate 5-24 BID ity of 0.1 % 00:00: [place] ointment Medical Branch [facility] Yes SMILEY EXT AA Univers ne valerate 5-24 BID ity of 0.1 % 00:00: [place] ointment Medical Branch [facility] Yes TK 1 C PO U nivers -hydrochlor 5-24 QAM ity of othiazide 00:00: [place] 37.5-25 mg 00 Medical per capsule Branch [facility] Yes TK 1 C PO U nivers -hydrochlor 5-24 QAM ity of othiazide 00:00: [place] 37.5-25 mg 00 Medical [facility] Univers ne valerate 5-24 BID ity of 0.1 % 00:00: [place] ointment 00 Medical Branch [facility] Yes TK 1 C PO U nivers -hydrochlor 5-24 QAM ity of othiazide 00:00: [place] 37.5-25 mg 00 Medical per capsule Branch betamethaso Yes SMILEY EXT AA Univers ne valerate 5-24 BID ity of 0.1 % 00:00: [place] ointment 00 Medical Branch [facility] Yes TK 1 C PO U nivers -hydrochlor -24 QAM ity of othiazide 00:00: [place] 37.5-25 mg 00 Medical per capsule Branch betamethaso Yes SMILEY EXT AA Univers ne valerate 5-24 BID ity of 0.1 % 00:00: [place] ointment 00 Medical Branch [facility] Yes TK 1 C PO U nivers -hydrochlor -24 QAM ity of othiazide 00:00: [place] 37.5-25 mg 00 [facility] SMILEY [facility] AA Univers ne valerate -24 -04 BID ity of 0.1 % 00:00: 00:00 [place] ointment 00 :00 [facility] Branch [facility] 2021- No TK 1 C PO Univers -hydrochlor -24 04-04 QAM ity of othiazide 00:00: 00:00 [place] 37.5-25 mg 00 :00 Medical per capsule Branch DEXILANT 60 Yes TK 1 C PO U nivers mg capsule 9-28 QD ity of 00:00: 00 [facility] Branch DEXILANT 60 Yes TK 1 C PO U nivers mg capsule 9-28 QD ity of 00:00: 00 [facility] Branch DEXILANT 60 Yes TK 1 C PO U nivers mg capsule 9-28 QD ity of 00:00: [place] 00 [facility] Branch DEXILANT 60 Yes TK 1 C PO U nivers mg capsule 9-28 QD ity of 00:00: 00 Medical Branch DEXILANT 60 Yes TK 1 C PO U nivers mg capsule 9-28 QD ity of 00:00: 00 Medical Branch DEXILANT 60 0 Yes TK 1 C PO U nivers mg capsule 9-28 QD ity of 00:00: 00 [facility] Branch DEXILANT 60 Yes TK 1 C [...] of tablet 00:00: FOR Medical Branch proMETHazin 2021- No TK 1 [...] NIGHTLY ity of 00:00: Medical Branch amLODIPine 2016 Yes TK 1 T PO Un guillermina 5 mg tablet 3-21 Q NIGHTLY ity of 00:00: [place] [facility] amLODIPine 2017- Yes TK 1 T PO Un guillermina 5 mg tablet 3-21 Q NIGHTLY ity of 00:00: [place] [facility] Branch amLODIPine 2017 Yes TK 1 T PO Un guillermina 5 mg tablet 3-21 Q NIGHTLY ity of 00:00: [place] [facility] Branch amLODIPine Yes TK 1 T PO Un guillermina 5 mg tablet 3-21 Q NIGHTLY ity of 00:00: [place] [facility] Branch amLODIPine Yes TK 1 T PO Un guillermina 5 mg tablet 3-21 Q NIGHTLY ity of 00:00: [place] [facility] amLODIPine Yes TK 1 T PO Un guillermina 5 mg tablet 3-21 Q NIGHTLY ity of 00:00: [place] [facility] amLODIPine 202- No TK 1 T PO U nivers 5 mg tablet 3-21 04-04 Q NIGHTLY it y of 00:00: 00:00 [place] 00 :00 [facility] Branch HYDROcodone Yes 1{tbl} Take 1 Un guillermina -acetaminop 2-08 tablet by ity of hen 10-325 00:00: mouth. [place] mg tablet 00 [facility] Branch HYDROcodone 2021- No 1{tbl} Take 1 U nivers -acetaminop 2-08 02-21 tablet by it y of hen 10-325 00:00: 00:00 [place]. [place] mg tablet 00 :00 [facility] HYDROcodone 2021- No 1{tbl} Take 1 U nivers -acetaminop 2-08 02-21 tablet by it y of hen 10-325 00:00: 00:00 mouth. [place] mg tablet 00 :00 [facility] Zoloft 100 2014-0 No 15mg mg tablet -16 00:00: 00 trazodone 2014-0 No 51mg 100 mg 4-16 tablet 00:00: 00 Dose 2014-0 No Unknown 4-16 00:00: 00 Dose 2014-0 No Unknown 4-16 00:00: 00 Zoloft 100 2014-0 No 15mg mg tablet -16 00:00: 00 Dose 2014-0 No Unknown 4-16 00:00: 00 Dose No Unknown 4-16 00:00: 00 trazodone 0 No 51mg 100 mg 12-17 tablet 00:00: 00 betamethaso 2013- Yes [id number] Apply to Univers ne 2-13 area(s) ity of dipropionat 00:00: two (2) [place] as e 00 times Medical (DIPROLENE) daily. Branch 0.05 % cream betamethaso Yes [id number] Apply to Univers ne 2-13 area(s) ity of dipropionat 00:00: two (2) [place] as e 00 times Medical (DIPROLENE) daily. Branch 0.05 % cream betamethaso Yes [id number] Apply to Univers ne 2-13 area(s) ity of dipropionat 00:00: two (2) [place] as e 00 times Medical (DIPROLENE) daily. Branch 0.05 % cream betamethaso 2012- Yes [id number] Apply to Univers ne 2-13 area(s) ity of dipropionat 00:00: two (2) [place] as e 00 times Medical (DIPROLENE) daily. Branch 0.05 % cream betamethaso Yes [id number] Apply to Univers ne 2-13 area(s) ity of dipropionat 00:00: two (2) [place] as e 00 times Medical (DIPROLENE) daily. Branch 0.05 % cream betamethaso 2012- Yes [id number] Apply to Univers ne 2-13 area(s) ity of dipropionat 00:00: two (2) [place] e 00 times Medical (DIPROLENE) daily. Branch 0.05 % cream betamethaso 2012- Yes [id number] Apply to Univers ne 2-13 area(s) ity of dipropionat 00:00: two (2) [place] as e 00 times Medical (DIPROLENE) daily. Branch 0.05 % cream betamethaso 2012- Yes [id number] Apply to Univers ne 2-13 area(s) ity of dipropionat 00:00: two (2) [place] as e 00 times Medical (DIPROLENE) daily. Branch 0.05 % cream betamethaso 2012-2021- No [id number] Apply to Univers ne 10-16 area(s) ity of dipropionat 00:00: 00:00 [place] (2[place] :00 times Medical (DIPROLENE) daily. Branch 0.05 % cream Vital Signs Vital Name Observation Time Observation Value Comments Source Height 2023-05-04 15:00:00 162.56 CM Weight 2023-05-04 15:00:00 85 KG Height 2023-04-14 22:00:00 160.02 CM Weight 2023-04-14 22:00:00 86.45 KG Height 2023-02-08 07:40:00 160.02 CM Weight 2023-02-08 07:40:00 91.6 KG Height 2022-12-11 20:32:00 13.46 CM Weight 2022-12-11 20:32:00 86.63 KG Systolic blood 2022-12-11 00:01:00 163 mm[Hg] Univer [facility] Diastolic blood 2022-12-11 00:01:00 96 mm[Hg] Unive rsity of [facility] Heart rate 2022-12-11 00:01:00 79 /min [facility] Body temperature 2022-12-11 00:01:00 37.22 Carleen [facility] Respiratory rate 2022-12-11 00:01:00 20 /min [facility] Body height 2022-12-11 00:01:00 160 cm [facility] Body weight 2022-12-11 00:01:00 87 kg [facility] BMI 2022-12-11 00:01:00 33.98 kg/m2 [facility] Oxygen saturation in 2022-12-11 00:01:00 99 /min [facility] Arterial blood by [facility] Pulse oximetry Branch Systolic blood 2022-11-05 21:43:00 123 mm[Hg] Univer sity of [facility] Diastolic blood 2022-11-05 21:43:00 84 mm[Hg] [facility]ive rsity of [facility] Heart rate 2022-11-05 21:43:00 59 /min [facility] Body temperature 2022-11-05 21:43:00 36.44 Carleen [facility] Oxygen saturation in 2022-11-05 21:43:00 97 /min [facility] of Arterial blood by [facility] Pulse oximetry Branch Respiratory rate 2022-11-05 17:22:00 17 /min [facility] Body height 2022-11-05 03:54:00 160 cm [facility] Body weight 2022-11-05 03:54:00 87.091 kg [facility] BMI 2022-11-05 03:54:00 34.01 kg/m2 [facility] Height 2022-08-17 11:26:00 Weight 2022-08-17 11:26:00 Systolic blood 2022-07-27 13:18:00 146 mm[Hg] Univer [facility]ity of [facility] Diastolic blood 2022-07-27 13:18:00 91 mm[Hg] [facility] rsity of [facility] Heart rate 2022-07-27 13:18:00 78 /min [facility] Body temperature 2022-07-27 13:18:00 36.44 Carleen [facility] Respiratory rate 2022-07-27 13:18:00 18 /min [facility] Oxygen saturation in 2022-07-27 13:18:00 94 /min [facility] of Arterial blood by [facility] Pulse oximetry Branch Body height 2022-07-26 05:22:00 160 cm [facility] Body weight 2022-07-26 05:22:00 97.977 kg [facility] BMI 2022-07-26 05:22:00 38.26 kg/m2 [facility] Height 2022-07-20 13:40:00 160.02 CM Weight 2022-07-20 13:40:00 89.81 KG Height 2022-07-20 11:04:00 160.02 CM Weight 2022-07-20 11:04:00 81.64 KG Systolic blood 2022-06-26 00:42:00 132 mm[Hg] Univer sity of pressure [facility] Diastolic blood 2022-06-26 00:42:00 81 mm[Hg] [facility] Heart rate 2022-06-26 00:42:00 104 /min [facility] Body temperature 2022-06-26 00:42:00 36.67 Carleen [facility] Respiratory rate 2022-06-26 00:42:00 18 /min [facility] Oxygen saturation in 2022-06-26 00:42:00 96 /min [facility] Arterial blood by [place] [facility] Body height 2022-06-25 00:54:00 160 cm [facility] Body weight 2022-06-25 00:54:00 98.884 kg [facility] BMI 2022-06-25 00:54:00 38.62 kg/m2 [facility] Height 2022-06-23 19:31:00 160.02 CM Weight 2022-06-23 19:31:00 86.18 KG Weight 2022-06-21 20:00:00 98.88 KG Height 2022-06-12 15:55:00 160.02 CM Weight 2022-06-12 15:55:00 81.64 KG Systolic blood 2022-06-01 03:00:00 167 mm[Hg] [facility]iver [facility]ity [facility] Diastolic blood 2022-06-01 03:00:00 102 mm[Hg] [facility] Heart rate 2022-06-01 03:00:00 94 /min [facility] Respiratory rate 2022-06-01 03:00:00 20 /min [facility] Oxygen saturation in 2022-06-01 03:00:00 98 /min [facility]ial blood by [place] [facility] Body height 2022-06-01 01:17:00 160 cm [facility] Body weight 2022-06-01 01:17:00 89.812 kg [facility] BMI 2022-06-01 01:17:00 35.07 kg/m2 [facility] Height 2022-04-05 15:26:00 160.02 CM Weight 2022-04-05 15:26:00 90.26 KG Systolic blood 2022-02-26 13:59:00 136 mm[Hg] [facility]iver [facility]ity [facility] Diastolic blood 2022-02-26 13:59:00 101 mm[Hg] [facility] Heart rate 2022-02-26 13:59:00 79 /min [facility] Body temperature 2022-02-26 13:59:00 36.78 Carleen [facility] Respiratory rate 2022-02-26 13:59:00 20 /min [facility] Oxygen saturation in 2022-02-26 13:59:00 100 /min [facility] Ar[facility]ial blood by [place] [facility] Body height 2022-02-26 04:37:00 160 cm [facility] Body weight 2022-02-26 04:37:00 92.08 kg [facility] BMI 2022-02-26 04:37:00 35.96 kg/m2 [facility] Systolic blood 2022-02-23 06:00:00 115 mm[Hg] [facility] Diastolic blood 2022-02-23 06:00:00 83 mm[Hg] [facility] Heart rate 2022-02-23 06:00:00 62 /min [facility] Respiratory rate 2022-02-23 06:00:00 18 /min [facility] Oxygen saturation in 2022-02-23 06:00:00 97 /min [facility] Arterial blood by [place] [facility] Body temperature 2022-02-23 02:45:00 37.83 Carleen [facility] Body height 2022-02-23 02:45:00 160 cm [facility] Body weight 2022-02-23 02:45:00 92.08 kg [facility] BMI 2022-02-23 02:45:00 35.96 kg/m2 [facility] Systolic blood 2022-01-29 21:54:12 118 mm[Hg] [facility] Diastolic blood 2022-01-29 21:54:12 74 mm[Hg] [facility] Heart rate 2022-01-29 21:54:12 98 /min [facility] Respiratory rate 2022-01-29 21:54:12 24 /min Univ [facility] Oxygen saturation in 2022-01-29 21:54:12 98 /min [facility] Arterial blood by [facility] Pulse oximetry Branch Body temperature 2022-01-29 18:53:00 37 Carleen [facility] Body height 2022-01-29 18:53:00 160 cm [facility] Body weight 2022-01-29 18:53:00 90.719 kg [facility] BMI 2022-01-29 18:53:00 35.43 kg/m2 [facility] Systolic blood 2022-01-29 15:01:00 138 mm[Hg] [facility]iver [facility] Diastolic blood 2022-01-29 15:01:00 82 mm[Hg] Unive rsity of [facility] Branch Heart rate 2022-01-29 15:01:00 88 /min [facility] Respiratory rate 2022-01-29 15:01:00 15 /min [facility] Oxygen saturation in 2022-01-29 15:01:00 96 /min [facility] Arterial blood by [facility] Pulse oximetry Branch Body temperature 2022-01-29 12:58:00 36.61 Carleen [facility] Body weight 2022-01-29 12:58:00 81.647 kg [facility] BMI 2022-01-29 12:58:00 31.89 kg/m2 [facility] Height 2022-01-05 08:28:00 160.02 CM Weight 2022-01-05 08:28:00 81.64 KG Systolic blood 2022-01-03 04:43:12 152 mm[Hg] [facility] Diastolic blood 2022-01-03 04:43:12 112 mm[Hg] Unive [facility]ity of [facility] Body temperature 2022-01-03 04:43:12 37.28 Carleen [facility] Respiratory rate 2022-01-03 04:43:12 17 /min [facility] Heart rate 2022-01-03 04:42:33 88 /min [facility] Oxygen saturation in 2022-01-03 04:42:33 97 /min [facility] Arterial blood by [facility] Pulse oximetry Branch Body height 2022-01-03 02:36:00 160 cm [facility] Body weight 2022-01-03 02:36:00 81.647 kg [facility] BMI 2022-01-03 02:36:00 31.89 kg/m2 [facility] Body temperature 2021-12-07 13:30:00 37.17 Carleen [facility] Respiratory rate 2021-12-07 13:30:00 23 /min [facility] Oxygen saturation in 2021-12-07 13:14:00 97 /min [facility] Arterial blood by [facility] Pulse oximetry Branch Systolic blood 2021-12-07 09:00:00 157 mm[Hg] [facility] Diastolic blood 2021-12-07 09:00:00 99 mm[Hg] [facility]ive [facility]ity of [facility] Heart rate 2021-12-07 09:00:00 82 /min [facility] Body weight 2021-12-07 08:10:00 95.709 kg [facility] BMI 2021-12-07 08:10:00 37.38 kg/m2 [facility] Body height 2021-12-06 06:30:00 160 cm [facility] Systolic blood 2021-12-05 09:10:00 126 mm[Hg] [facility] Diastolic blood 2021-12-05 09:10:00 71 mm[Hg] [facility]ive [facility]ity [facility] Heart rate 2021-12-05 09:10:00 85 /min [facility] Body temperature 2021-12-05 09:10:00 36.83 Carleen [facility] Respiratory rate 2021-12-05 09:10:00 18 /min [facility] Oxygen saturation in 2021-12-05 09:10:00 96 /min [facility] Arterial blood by [facility] dayna Pulse oximetry Branch Body height 2021-12-03 23:16:00 160 cm [facility] Body weight 2021-12-03 23:16:00 81.647 kg [facility] BMI 2021-12-03 23:16:00 31.89 kg/m2 [facility] Systolic blood 2021-11-11 18:12:00 152 mm[Hg] [facility]iver [facility]ity [facility] Diastolic blood 2021-11-11 18:12:00 93 mm[Hg] [facility] Heart rate 2021-11-11 18:12:00 108 /min [facility] Body temperature 2021-11-11 18:12:00 37.06 Carleen [facility] Respiratory rate 2021-11-11 18:12:00 20 /min [facility] Oxygen saturation in 2021-11-11 18:12:00 95 /min [facility] Arterial blood by [employer] Pulse oximetry Branch Body height 2021-11-10 17:22:00 160 cm [facility] Body weight 2021-11-10 17:22:00 91 kg [facility] BMI 2021-11-10 17:22:00 35.54 kg/m2 [facility] Systolic blood 2021-10-24 17:05:00 143 mm[Hg] [facility]iver [facility]ity [facility] Diastolic blood 2021-10-24 17:05:00 90 mm[Hg] [facility]ive [facility]ity [facility] Heart rate 2021-10-24 17:05:00 103 /min [facility] Body temperature 2021-10-24 17:05:00 36.22 Carleen [facility] Respiratory rate 2021-10-24 17:05:00 18 /min [facility] Oxygen saturation in 2021-10-24 17:05:00 95 /min [facility] Arterial blood by [place] [facility] Body weight 2021-10-22 10:08:00 71.215 kg bed scale [facility] BMI 2021-10-22 10:08:00 28.72 kg/m2 [facility] Body height 2021-10-17 14:00:00 157.5 cm [facility] Systolic blood 2021-10-21 15:36:00 129 mm[Hg] Univer sity of pressure [facility] Diastolic blood 2021-10-21 15:36:00 82 mm[Hg] Unive rsity of pressure [facility] Heart rate 2021-10-21 15:36:00 100 /min [facility] Respiratory rate 2021-10-21 15:36:00 20 /min [facility] Oxygen saturation in 2021-10-21 15:36:00 100 /min [facility] Arterial blood by [facility] Pulse oximetry Branch Body temperature 2021-10-21 13:07:00 36.83 Carleen [facility] Body height 2021-10-17 14:00:00 157.5 cm [facility] Body weight 2021-10-17 14:00:00 99.791 kg [facility] BMI 2021-10-17 14:00:00 28.72 kg/m2 [facility] BP Systolic 2022-09-25 11:01:00 155 mm[Hg] BP Diastolic 2022-09-25 11:01:00 95 mm[Hg] Weight Measured 2022-09-25 11:01:00 196.20 pounds Height Measured 2022-09-25 11:01:00 65.10 inches Body Temperature 2022-09-25 11:01:00 99.00 degrees Heart Rate 2022-09-25 11:01:00 65.00 /min Respiratory Rate 2022-09-25 11:01:00 BP Systolic 2022-09-25 10:42:00 155 mm[Hg] BP Diastolic 2022-09-25 10:42:00 95 mm[Hg] Weight Measured 2022-09-25 10:42:00 196.20 pounds Height Measured 2022-09-25 10:42:00 65.10 inches Body Temperature 2022-09-25 10:42:00 99.00 degrees Heart Rate 2022-09-25 10:42:00 65.00 /min Respiratory Rate 2022-09-25 10:42:00 BP Systolic 2022-09-21 16:02:00 157 mm[Hg] BP Diastolic 2022-09-21 16:02:00 101 mm[Hg] Weight Measured 2022-09-21 16:02:00 196.20 pounds Height Measured 2022-09-21 16:02:00 65.10 inches Body Temperature 2022-09-21 16:02:00 97.70 degrees Heart Rate 2022-09-21 16:02:00 69.00 /min Respiratory Rate 2022-09-21 16:02:00 BP Systolic 2022-08-11 11:41:00 125 mm[Hg] BP Diastolic 2022-08-11 11:41:00 84 mm[Hg] Weight Measured 2022-08-11 11:41:00 198.60 pounds Height Measured 2022-08-11 11:41:00 65.10 inches Body Temperature 2022-08-11 11:41:00 98.20 degrees Heart Rate 2022-08-11 11:41:00 110.00 /min Respiratory Rate 2022-08-11 11:41:00 18.00 /min BP Systolic 2022-04-15 13:48:00 155 mm[Hg] BP [...] Date / Time Performing Clinician Source Performed DESTRUCT LUMBAR NERVE 2023-02-08 00:00:00 Shi hdez [facility] 2022-12-25 05:01:00 Doctor Unassigned, [facility] REQUEST/RESPONSE [facility] XR KNEE 3 VW RIGHT 2022-12-11 00:44:07 Oren Tovar [facility] NOTICE OF PRIVACY 2022-12-10 23:48:22 Doctor Casandra, [facility] PRACTICES [facility] CONSENT/REFUSAL FOR 2022-12-10 23:47:38 Doctor Guajardo [facility] DIAGNOSIS AND TREATMENT [facility] AUTHORIZATION FOR RELEASE 2022-11-22 05:01:00 Doctor Casandra, [facility] OF [facility] TROPONIN I 2022-11-05 20:53:00 [facility] TROPONIN I 2022-11-05 14:07:00 [facility] THYROID STIMULATING 2022-11-05 14:07:00 Nichole Weldon [facility] HORMONE [facility] Branch EKG-12 LEAD 2022-11-05 13:47:04 Yuniel Mccray [facility] CT CHEST PULMONARY 2022-11-05 09:00:08 Yuniel Mccray [facility] ANGIOGRAM Medical Branch TEST, SERUM 2022-11-05 07:07:00 Yuniel Mccray [facility] TROPONIN I 2022-11-05 07:07:00 Yuniel Mccray [facility] COMP. METABOLIC PANEL 2022-11-05 07:07:00 Yuniel Mccray [facility] ([id number]) [facility] CBC WITH DIFF 2022-11-05 07:07:00 Yuniel Mccray [facility] PROTHROMBIN TIME / INR 2022-11-05 07:07:00 [facility] D-DIMER 2022-11-05 07:07:00 Yuniel Mccray [facility] ACTIVATED PARTIAL 2022-11-05 07:07:00 Yuniel Mccray [facility] THRMPLAS ANTONINO [facility] N-TERMINAL PRO-BNP 2022-11-05 07:07:00 Yuniel Mccray [facility] XR CHEST 1 VW 2022-11-05 04:39:20 Yuniel Mccray [facility] COVID-19 (ID NOW RAPID 2022-11-05 04:33:00 Yuniel Mccray [facility] TESTING) Medical Branch CONSENT/REFUSAL FOR 2022-11-05 03:43:00 Doctor Unassjael [facility] DIAGNOSIS AND TREATMENT [facility] INTRO ANES AGT PERIPH 2022-08-17 00:00:00 [facility] d Medical NRV\\T\\PLEXI PC Center INTRO AIF PERIPH NRV 2022-08-17 00:00:00 [facility] PLEXI PERQ Center TRANSTHORACIC ECHO (TTE) 2022-07-26 17:38:46 Marcelino [facility] EKG-12 LEAD 2022-07-26 04:19:27 Glenna [facility] CT CHEST PULMONARY 2022-07-26 03:22:22 Edgar [facility] ANGIOGRAM Medical Branch XR CHEST 1 VW 2022-07-26 02:35:21 Glenna [facility] MAGNESIUM 2022-07-26 02:27:00 [facility] TEST, SERUM 2022-07-26 02:27:00 [facility] 2022-07-26 [facility]. METABOLIC PANEL 2022-07-26 02:27:00 Glenna [facility] ([id number]) [facility] CBC WITH DIFF 2022-07-26 02:27:00 [facility] 2022-07-26 02:27:00 [facility] RAPID INFLUENZA A/B 2022-07-26 02:27:00 Glenna [facility] N-TERMINAL PRO-BNP 2022-07-26 02:27:00 Edgar tamia [facility] COVID-19 (ID NOW RAPID 2022-07-26 02:27:00 [facility] Medical [place] [facility] ONLY COVID 2022-07-26 02:27:00 [facility] INTERPRETATION [facility] POCT TEST 2022-07-26 02:25:00 [facility] CONSENT/REFUSAL FOR 2022-07-26 01:46:49 Doctor Unananci, Chris [facility] DIAGNOSIS AND TREATMENT [facility]TR[facility] DSTRUC AGT CL NRV 2022-07-20 00:00:00 [facility] TR[facility] 2022-06-25 13:36:00 Sunday Sharma [facility] THYROID STIMULATING 2022-06-25 13:36:00 Shakira Lucas [facility] HORMONE [facility] TROPONIN I 2022-06-25 10:40:00 Sunday Sharma [facility] CT ANGIOGRAM CHEST 2022-06-25 08:02:00 Sunday Sharma [facility] EKG-12 LEAD 2022-06-25 05:02:32 Edgard [facility] URINALYSIS 2022-06-25 03:47:00 Edgard [facility] TROPONIN I 2022-06-25 03:35:00 Edgard [facility] COMP. METABOLIC PANEL 2022-06-25 03:35:00 Jaden Siddiqui [facility] ([id number]) [facility] CBC WITH DIFF 2022-06-25 03:35:00 Edgard [facility] PROTHROMBIN TIME / INR 2022-06-25 03:35:00 Edgard Jaden [facility] D-DIMER 2022-06-25 03:35:00 [facility] N-TERMINAL PRO-BNP 2022-06-25 03:35:00 Edgard Jaden [facility] CONSENT/REFUSAL FOR 2022-06-25 00:16:13 Doctor UnaChris christine [facility] DIAGNOSIS AND TREATMENT [facility] XR CHEST 1 VW 2022-06-24 14:12:00 Jaden [facility] INTRO ANES AGT PERIPH 2022-06-15 00:00:00 [facility] NRV\\T\\PLEXI PC Center INTRO AIF PERIPH NRV 2022-06-15 00:00:00 [facility] PLEXI PERQ Center AUTHORIZATION FOR RELEASE 2022-06-08 05:01:00 Doctor Unassigned, [facility] XR CHEST 1 VW 2022-06-01 02:07:14 Gabriel Garcia [place] [facility] XR KNEE <3 VW RIGHT 2022-06-01 02:07:14 Gabriel Garcia [facility] XR SHOULDER 2+ VW RIGHT 2022-06-01 02:07:14 Gabriel Garcia [facility] CT CERVICAL SPINE WO 2022-06-01 02:05:05 Gabriel Garcia [facility] CONTRAST Medical Branch CT HEAD WO CONTRAST 2022-06-01 02:05:05 Gabriel Garcia [facility] CONSENT/REFUSAL FOR 2022-06-01 01:15:31 Doctor Unassigned, [facility] DIAGNOSIS AND TREATMENT [facility] INTRO ANES AGT PERIPH 2022-05-11 00:00:00 [facility] NRV\\T\\[facility]XI PC Center INTRO AIF PERIPH NRV 2022-05-11 00:00:00 [facility] PLEXI PERQ Center INTRO ANES AGT PERIPH 2022-04-06 00:00:00 [facility] NRV\\T\\PLEXI PC Center INTRO AIF PERIPH NRV 2022-04-06 00:00:00 [facility] PLEXI PERQ Center ASSIGNMENT OF BENEFITS 2022-03-14 20:14:00 Doctor Unassigned, [facility] CT THORAX WO CONTRAST 2022-02-26 13:20:05 Anaya Kline [facility] BASIC METABOLIC PANEL 2022-02-26 09:29:00 u Anaya Sharma [facility] (NA, K, CL, CO2, GLUCOSE, Medica l Branch BUN, CREATININE, CA) CBC WITH DIFF 2022-02-26 09:29:00 Abu Anaya Sharma [facility] EKG-12 LEAD 2022-02-26 06:20:06 Sobeida Samson [facility] LIPASE 2022-02-26 03:28:00 Sobeida Samson [facility] TROPONIN I 2022-02-26 03:28:00 Sobeida Samson [facility] COMP. METABOLIC PANEL 2022-02-26 03:28:00 Sobeida Samson [facility] ([id number]) [facility] CBC WITH DIFF 2022-02-26 03:28:00 Sobeida Samson [facility] N-TERMINAL PRO-BNP 2022-02-26 03:28:00 Sobeida Samson [facility] XR CHEST 1 VW 2022-02-26 01:52:00 Sobeida Samson [facility] COVID-19 (ID NOW RAPID 2022-02-26 01:03:00 Sobeida Samson [facility] TESTING) [facility] CT HEAD WO CONTRAST 2022-02-25 23:59:38 Sobeida Samson [facility] CONSENT/REFUSAL FOR 2022-02-25 22:55:28 Doctor Unassigned, [facility] DIAGNOSIS AND TREATMENT [facility] EKG-12 LEAD 2022-02-23 06:15:35 Bro Ann [facility] TROPONIN I 2022-02-23 05:20:00 Bro Ann [facility] XR CHEST 2 VW 2022-02-23 03:47:00 Bro Ann [facility] URINALYSIS 2022-02-23 03:26:00 Bro Ann [facility] TROPONIN I 2022-02-23 03:12:00 Bro Ann [facility] COMP. METABOLIC PANEL 2022-02-23 03:12:00 [facility] ([id number] CBC WITH DIFF 2022-02-23 03:12:00 Bro Ann [facility] RAPID INFLUENZA A/B 2022-02-23 03:12:00 Bro Ann [facility] N-TERMINAL PRO-BNP 2022-02-23 03:12:00 Bro Ann [facility] COVID-19 (ID NOW RAPID 2022-02-23 03:12:00 Bro Ann [facility] TESTING) Medical Branch CONSENT/REFUSAL FOR 2022-02-23 02:38:26 Doctor Casandra [facility] DIAGNOSIS AND TREATMENT [facility] XR LUMBAR SPINE 2 VW 2022-01-29 20:25:58 Jaden Siddiqui [facility] CONSENT/REFUSAL FOR 2022-01-29 18:42:46 Doctor Casandra [facility] DIAGNOSIS AND TREATMENT [facility] XR CHEST 1 VW 2022-01-29 13:43:00 Mai Del Rosario [facility] TROPONIN I 2022-01-29 13:34:00 Mai Del Rosario [facility] COMP. METABOLIC PANEL 2022-01-29 13:34:00 Mai Del Rosario [facility] ([id number]) [facility] CBC WITH DIFF 2022-01-29 13:34:00 Mai Del Rosario [facility] N-TERMINAL PRO-BNP 2022-01-29 13:34:00 Mai Del Rosario [facility] AC PANEL 21 + LACTIC ACID 2022-01-29 13:34:00 Mai Del Rosario [facility] CONSENT/REFUSAL FOR 2022-01-29 12:47:51 Doctor Casandra [facility] DIAGNOSIS AND TREATMENT [facility] INTRO ANES AGT PERIPH 2022-01-05 00:00:00 Shi hdez Medical NRV\\T\\PLEXI PC Center INTRO AIF PERIPH NRV 2022-01-05 00:00:00 Victor Manuel Mcfadden PLEXI PERQ Center XR CHEST 1 VW 2022-01-03 04:29:34 Jacklyn Guillen [facility] CONSENT/REFUSAL FOR 2022-01-03 02:30:38 Doctor Casandra [facility] DIAGNOSIS AND TREATMENT [facility] MAGNESIUM 2021-12-07 09:01:00 David Lazo [facility] COMP. METABOLIC PANEL 2021-12-07 09:01:00 Gely Hernandez [facility] ([id number]) [facility] CBC WITH DIFF 2021-12-07 09:01:00 [facility] N-TERMINAL PRO-BNP 2021-12-07 09:01:00 [facility] URINALYSIS 2021-12-06 16:46:00 [facility] URINE CULTURE 2021-12-06 16:46:00 [facility] PHOSPHORUS 2021-12-06 10:11:00 [facility] MAGNESIUM 2021-12-06 10:11:00 [facility] VITAMIN B12, LEVEL 2021-12-06 10:11:00 [facility] C-REACTIVE PROTEIN 2021-12-06 10:11:00 [facility] TROPONIN I 2021-12-06 10:11:00 [facility] FREE T4 2021-12-06 10:11:00 [facility] COMP. METABOLIC PANEL 2021-12-06 10:11:00 Gely Hernandez [facility] ([id number]) [facility] SEDIMENTATION RATE 2021-12-06 10:11:00 Mary ady [facility] CBC WITH DIFF 2021-12-06 10:11:00 [facility] N-TERMINAL PRO-BNP 2021-12-06 10:11:00 [facility] VITAMIN D, 25-OH 2021-12-06 10:11:00 Mary [facility] FREE T3 2021-12-06 10:11:00 [facility] PROCALCITONIN 2021-12-06 10:11:00 Gely Hernandez [facility] AC VBG + LACTIC ACID 2021-12-06 10:10:00 Gely Hernandez [facility] COVID-19 (ID NOW RAPID 2021-12-06 00:09:00 [facility] Medical Branch LAB ONLY COVID 2021-12-06 00:09:00 Oren Tovar [facility] URIC ACID 2021-12-06 00:07:00 Mary ady [facility] FERRITIN SERUM 2021-12-06 00:07:00 [facility] TROPONIN I 2021-12-06 00:07:00 Oren Tovar [facility] THYROID STIMULATING 2021-12-06 00:07:00 Gely Hernandez [facility] HORMONE [facility] COMP. METABOLIC PANEL 2021-12-06 00:07:00 Oren Tovar [facility] ([id number]) Medical Branch LIPID PANEL ([id number])(TOTAL 2021-12-06 00:07:00 Gely Hernandez [facility] CHOLESTEROL, [facility] TRIGLYCERIDES, HDL) IRON PANEL 2021-12-06 00:07:00 Mary ady [facility] DIFF CONSULT 2021-12-06 00:07:00 Mary ady [facility] CBC WITH DIFF 2021-12-06 00:07:00 Oren Tovar [facility] GLYCOSYLATED HEMOGLOBIN 2021-12-06 00:07:00 Mary ady [facility] (A1C) Medical Branch PROTHROMBIN TIME / INR 2021-12-06 00:07:00 Oren Tovar [facility] ACTIVATED PARTIAL 2021-12-06 00:07:00 Oren Tovar [facility] THRMPLAS ANTONINO [facility] N-TERMINAL PRO-BNP 2021-12-06 00:07:00 Oren Tovar [facility] HB ECG ROUTINE & RHYTHM 2021-12-06 00:05:16 Oren Tovar [facility] STRIP [facility] XR CHEST 1 VW 2021-12-05 23:50:38 Oren Tovar [place] [facility] ASSIGNMENT OF BENEFITS 2021-12-05 23:47:08 Doctor Unassigned, [facility] [place] NOTICE OF PRIVACY 2021-12-05 22:03:59 Doctor Unassigned, [facility] PRACTICES [facility] CONSENT/REFUSAL FOR 2021-12-05 22:03:42 Doctor Unassigned, [facility] DIAGNOSIS AND TREATMENT Sarah Ann [facility] CT ANGIOGRAM CHEST 2021-12-04 20:47:15 Rivas [facility] LACTIC ACID WHOLE BLOOD 2021-12-04 15:19:00 [facility] BLOOD CULTURE SCREEN 2021-12-04 10:21:00 Donal You [facility] LACTIC ACID WHOLE BLOOD 2021-12-04 09:08:00 Deloris Youshua [facility] BASIC METABOLIC PANEL 2021-12-04 09:07:00 Wilfrid Pearson [facility] (NA, K, CL, CO2, GLUCOSE, Medica l Branch BUN, CREATININE, CA) CBC WITH DIFF 2021-12-04 09:07:00 Rivas [facility] EKG-12 LEAD 2021-12-03 21:29:00 Maury Brush [facility] AC ABG + LACTIC ACID 2021-12-03 21:13:00 Maury Brush [facility] AMYLASE 2021-12-03 21:12:00 Maury Brush [facility] LIPASE 2021-12-03 21:12:00 Maury Brush [facility] TROPONIN I 2021-12-03 21:12:00 Maury Brush [facility] COMP. METABOLIC PANEL 2021-12-03 21:12:00 Maury Brush [facility] ([id number]) [facility] CBC WITH DIFF 2021-12-03 21:12:00 Maury Brush [facility] N-TERMINAL PRO-BNP 2021-12-03 21:12:00 Maury Brush [facility] PROCALCITONIN 2021-12-03 21:12:00 Anaya Kline [facility] XR CHEST 1 VW 2021-12-03 20:52:01 Maury Brush [facility] URINALYSIS 2021-12-03 20:34:00 Maury Brush [facility] COVID-19 (ID NOW RAPID 2021-12-03 20:34:00 Maury Brush Un [facility] TESTING) [facility] AUTHORIZATION FOR RELEASE 2021-11-23 05:01:00 Doctor Unassigned, [facility] Sarah Ann [facility] EKG-12 LEAD 2021-11-11 05:25:58 Sobeida Samson [facility] BASIC METABOLIC PANEL 2021-11-10 09:16:00 [facility] (NA, K, CL, CO2, GLUCOSE, Medica l Branch BUN, CREATININE, CA) CBC WITH DIFF 2021-11-10 09:16:00 [facility] o f [facility] LACTIC ACID WHOLE BLOOD 2021-11-10 09:16:00 Sobeida Samson U [facility] CT CHEST PULMONARY 2021-11-10 04:49:21 Sobeida Samson [facility] ANGIOGRAM [facility] BLOOD CULTURE SCREEN 2021-11-10 03:58:00 Sobeida Samson [facility] BLOOD CULTURE WORKUP 2021-11-10 03:58:00 Sobeida Samson [facility] BLOOD CULTURE SCREEN 2021-11-10 02:56:00 Sobeida Samson [facility] PROTHROMBIN TIME / INR 2021-11-10 01:47:00 Sobeida Samson [facility] D-DIMER 2021-11-10 01:47:00 Sobeida Samson [facility] ACTIVATED PARTIAL 2021-11-10 01:47:00 Sobeida Samson [facility] THRMPLAS ANTONINO Medical Branch COVID-19 (ID NOW RAPID 2021-11-10 01:47:00 Sobeida Samson Un [facility] TESTING) Medical Branch LAB ONLY COVID 2021-11-10 01:47:00 Sobeida Samson [facility] INTERPRETATION Medical Branch AC ABG + LACTIC ACID 2021-11-10 01:45:00 Sobeida Samson [facility] XR CHEST 1 VW 2021-11-10 01:38:00 Sobeida Samson [facility] COMP. METABOLIC PANEL 2021-11-10 01:32:00 Sobeida Samson [facility] ([id number]) Medical Branch CBC WITH DIFF 2021-11-10 01:32:00 Sobeida Samson [facility] CONSENT/REFUSAL FOR 2021-11-10 00:42:41 Doctor Unassigned, [facility] DIAGNOSIS AND TREATMENT [facility] [place] AUTHORIZATION FOR RELEASE 2021-11-07 06:01:00 Doctor Unassigned, [facility] Name Medical [place] EXTERNAL PROVIDER - 2021-11-03 06:01:00 Doctor Unassjael, [facility] WOMEN'S SERVICES [facility] [place] RADIOLOGY XR CHEST 1 2021-10-24 18:45:48 Abu Zachary [facility] XR CHEST 1 2021-10-24 18:45:48 Abki Sharma [facility] BASIC METABOLIC PANEL 2021-10-24 12:36:[address] [facility] (NA, K, CL, CO2, GLUCOSE, Medica l Branch BUN, CREATININE, CA) CBC WITHOUT DIFF 2021-10-24 12:36:00 Renato [facility] BASIC METABOLIC PANEL 2021-10-24 12:36:00 Renato [facility] (NA, K, CL, CO2, GLUCOSE, Medica l Branch BUN, CREATININE, CA) CBC WITHOUT DIFF 2021-10-24 12:36:00 Renato [facility] XR CHEST 1 2021-10-22 15:58:26 Abu Case Sharmaan [facility] XR CHEST 1 VW 2021-10-22 15:58:26 Sunday SamsonAnaya saucedo [facility] MAGNESIUM 2021-10-22 10:47:00 [facility] BASIC METABOLIC PANEL 2021-10-22 10:47:00 Rose [facility] (NA, K, CL, CO2, GLUCOSE, Medica l Branch BUN, CREATININE, CA) CBC WITH DIFF 2021-10-22 10:47:00 Rose [facility] MAGNESIUM 2021-10-22 10:47:00 Ezzo [facility] BASIC METABOLIC PANEL 2021-10-22 10:47:00 Rose [facility] (NA, K, CL, CO2, GLUCOSE, Medica l Branch BUN, CREATININE, CA) CBC WITH DIFF 2021-10-22 10:47:00 [facility] XR CHEST 1 VW 2021-10-21 22:10:00 [facility] XR CHEST 1 VW 2021-10-21 22:10:00 Sunday Sharma [facility] AC PANEL 20 + LACTIC ACID 2021-10-21 20:28:00 ki Sharma [facility] AC PANEL 20 + LACTIC ACID 2021-10-21 20:28:00 Sunday Samson [facility] CYTO BAL 2021-10-21 18:49:00 Anaya Kline [facility] BODY FLUID DIRECT COUNT 2021-10-21 18:47:00 Sunday Sharma Caseamina U [facility] BODY FLUID DIRECT COUNT 2021-10-21 18:47:00 Anaya Kline [facility] [employer] CULTURE 2021-10-21 18:46:00 Sunday [facility] FUNGUS (ROUTINE) CULTURE 2021-10-21 18:46:00 Sunday [facility] MYCOBACTERIUM 2021-10-21 18:46:00 Anaya Kline [facility] TUBERCULOSIS COMPLEX PCR [facility] RESPIRATORY PANEL BY PCR 2021-10-21 18:46:00 Anaya Kline [facility] [employer] CULTURE 2021-10-21 18:46:00 Sunday [facility] FUNGUS (ROUTINE) CULTURE 2021-10-21 18:46:00 Sunday [facility] MYCOBACTERIUM 2021-10-21 18:46:00 Anaya Kline [facility] RESPIRATORY PANEL BY PCR 2021-10-21 18:46:00 Sunday [facility] BASIC METABOLIC PANEL 2021-10-21 18:44:00 Sunday SamsonlewisAnaya [facility] (NA, K, CL, CO2, GLUCOSE, Medica l Branch BUN, CREATININE, CA) BASIC METABOLIC PANEL 2021-10-21 18:44:00 Anaya Kline [facility] (NA, K, CL, CO2, GLUCOSE, Medica l Branch BUN, CREATININE, CA) CBC WITH DIFF 2021-10-21 18:41:00 Sunday Samsonlewis Anaya [facility] PROTHROMBIN TIME / INR 2021-10-21 18:41:00 Sunday SharmaCaseamina [facility] FIBR[facility]EN 2021-10-21 18:41:00 Sunday Sharma Caseamina [facility] CBC WITH DIFF 2021-10-21 18:41:00 Sunday Sharma Anaya [facility] PROTHROMBIN TIME / INR 2021-10-21 18:41:00 Sunday Anaya [facility] FIBRINOGEN 2021-10-21 18:41:00 [facility] ANTI-NUCLEAR ANTIBODY 2021-10-21 18:41:00 Anaya Kline [facility] [place] TIME OR 2021-10-21 18:18:06 Anaya Kline [facility] (NON-REPORTABLE) [facility] [place] TIME OR 2021-10-21 18:18:06 Abu Atherah, [facility] (NON-REPORTABLE) [facility] FLEXIBLE BRONCHOSCOPY 2021-10-21 16:21:00 AbAnaya [facility] FLEXIBLE BRONCHOSCOPY 2021-10-21 16:21:00 Abu Anaya Sharma [facility] XR CHEST 1 VW 2021-10-20 11:13:00 Abu Zachary [facility] XR CHEST 1 VW 2021-10-20 11:13:00 Abu Zachary [facility] CBC WITH DIFF 2021-10-20 10:30:00 Maggie Morgan [facility] CBC WITH DIFF 2021-10-20 10:30:00 Maggie Morgan [facility] URIC ACID 2021-10-20 10:29:00 Abu Zachary [facility] BASIC METABOLIC PANEL 2021-10-20 10:29:00 Maggie Morgan [facility] (NA, K, CL, CO2, GLUCOSE, Medica l Branch BUN, CREATININE, CA) URIC ACID 2021-10-20 10:29:00 Abu Zachary [facility] BASIC METABOLIC PANEL 2021-10-20 10:29:00 Maggie Morgan [facility] (NA, K, CL, CO2, GLUCOSE, Medica l Branch BUN, CREATININE, CA) XR CHEST 1 2021-10-19 18:11:14 Abu Zachary [facility] XR CHEST 1 2021-10-19 18:11:14 Abu Zachary, [facility] CBC WITH DIFF 2021-10-19 09:05:00 Maggie Morgan [facility] CBC WITH DIFF 2021-10-19 09:05:00 Maggie Morgan [facility] MAGNESIUM 2021-10-19 09:04:00 Zelda Olsen [facility] BASIC METABOLIC PANEL 2021-10-19 09:04:00 Maggie Morgan [facility] (NA, K, CL, CO2, GLUCOSE, Medica l Branch BUN, CREATININE, CA) MAGNESIUM 2021-10-19 09:04:00 Zelda Olsen o f [facility] BASIC METABOLIC PANEL 2021-10-19 09:04:00 Maggie Morgan [facility] (NA, K, CL, CO2, GLUCOSE, Medica l Branch BUN, CREATININE, CA) POCT GLUCOSE (AUTOMATED) 2021-10-19 02:24:00 Blanca Talavera [facility] POCT GLUCOSE (AUTOMATED) 2021-10-19 02:24:00 Blanca Talavera [facility] COVID-19 (MOLECULAR 2021-10-18 19:48:00 Vale Jones [facility] NUCLEIC ACID AMPLIFICATION) LAB ONLY COVID 2021-10-18 19:48:00 [facility] COVID-19 (MOLECULAR 2021-10-18 19:48:00 Vale Jones [facility] NUCLEIC ACID AMPLIFICATION) LAB ONLY COVID 2021-10-18 19:48:00 [facility] INTERPRETATION [facility] ANGIOTENSIN CONVERTING 2021-10-18 19:45:00 [facility] RHEUMAT[facility] FACTOR 2021-10-18 19:45:00 Amadou Putnam [facility] ANCA SCREEN 2021-10-18 19:45:00 [facility] ANGIOTENSIN CONVERTING 2021-10-18 19:45:00 [facility] RHEUMATOID FACTOR 2021-10-18 19:45:00 Amadou Putnam [facility] ANCA SCREEN 2021-10-18 19:45:00 [facility] XR CHEST 1 VW 2021-10-18 12:37:00 Abu Zachary [facility] XR CHEST 1 VW 2021-10-18 12:37:00 Abu Atherlewis [facility] PHOSPHORUS 2021-10-18 09:30:00 Ezzo [facility] MAGNESIUM 2021-10-18 09:30:00 Ezzo, [facility] BASIC METABOLIC PANEL 2021-10-18 09:30:00 Ezzo [facility] (NA, K, CL, CO2, GLUCOSE, Medica l Branch BUN, CREATININE, CA) CBC WITH DIFF 2021-10-18 09:30:00 Ezzo, [facility] GLYCOSYLATED HEMOGLOBIN 2021-10-18 09:30:00 Maggie Morgan [facility] (A1C) [facility] PHOSPHORUS 2021-10-18 09:30:00 Ezzo, [facility] MAGNESIUM 2021-10-18 09:30:00 Ezzo, [facility] BASIC METABOLIC PANEL 2021-10-18 09:30:00 Ezkevin [facility] (NA, K, CL, CO2, GLUCOSE, Medica l Branch BUN, CREATININE, CA) CBC WITH DIFF 2021-10-18 09:30:00 Ezzo, [facility] GLYCOSYLATED HEMOGLOBIN 2021-10-18 09:30:00 Maggie Morgan [facility] (A1C) [facility] BASIC METABOLIC PANEL 2021-10-18 00:43:00 Abu [facility] (NA, K, CL, CO2, GLUCOSE, Medica l Branch BUN, CREATININE, CA) BASIC METABOLIC PANEL 2021-10-18 00:43:00 [facility] (NA, K, CL, CO2, GLUCOSE, Medica l Branch BUN, CREATININE, CA) N-TERMINAL PRO-BNP 2021-10-17 21:27:[address] [facility] N-TERMINAL PRO-BNP 2021-10-17 21:27:[address] [facility] TRANSTHORACIC ECHO (TTE) 2021-10-17 17:05:00 Bk [facility] TRANSTHORACIC ECHO (TTE) 2021-10-17 17:05:00 Bk [facility] XR CHEST 1 VW 2021-10-17 17:00:50 Josie, [facility] XR CHEST 1 2021-10-17 17:00:50 Josie, [facility] XR CHEST 1 2021-10-17 14:17:12 Ahleighann, [facility] XR CHEST 1 2021-10-17 14:17:12 Josie, [facility] ABG+COOX+NA+K+GLU+CA2+ 2021-10-17 13:25:00 [facility] ABG+COOX+NA+K+GLU+CA2+ 2021-10-17 13:25:00 Faraz [facility] PHOSPHORUS 2021-10-17 10:28:00 Josie [facility] MAGNESIUM 2021-10-17 10:28:00 Josie [facility] BASIC METABOLIC PANEL 2021-10-17 10:28:00 Josie [facility] (NA, K, CL, CO2, GLUCOSE, Medica l Branch BUN, CREATININE, CA) SEDIMENTATION RATE 2021-10-17 10:28:00 aFraz Parada [facility] CBC WITH DIFF 2021-10-17 10:28:00 Josie [facility] ANTI-NUCLEAR ANTIBODY 2021-10-17 10:28:[address] [facility] ANTI-NUCLEAR ANTIBODY 2021-10-17 10:28:00 Jennifer [facility] ANTI-DOUBLE STRANDED DNA 2021-10-17 10:28:00 Amadou Putnam [facility] HIV 1/2 AG-AB WITH REFLEX 2021-10-17 10:28:00 Anaya Kline [facility] ANTI-NUCLEAR 2021-10-17 10:28:00 Faraz Parada [facility] ANTIBODY-PATHOLOGIST Medical [facility] INTERPRETATION PHOSPHORUS 2021-10-17 10:28:00 Josie [facility] MAGNESIUM 2021-10-17 10:28:00 Josie [facility] BASIC METABOLIC PANEL 2021-10-17 10:28:00 Josie [facility] (NA, K, CL, CO2, GLUCOSE, Medica l Branch BUN, CREATININE, CA) SEDIMENTATION RATE 2021-10-17 10:28:00 Jennifer [facility] CBC WITH DIFF 2021-10-17 10:28:00 Josie [facility] ANTI-NUCLEAR ANTIBODY 2021-10-17 10:28:00 Jennifer [facility] ANTI-NUCLEAR ANTIBODY 2021-10-17 10:28:00 Jennifer [facility] TITER [facility] ANTI-DOUBLE STRANDED DNA 2021-10-17 10:28:00 Amadou Putnam [facility] HIV 1/2 AG-AB WITH REFLEX 2021-10-17 10:28:00 Anaya Kline [facility] ANTI-NUCLEAR 2021-10-17 10:28:00 Jennifer [facility] ANTIBODY-PATHOLOGIST Medical [facility] INTERPRETATION BLOOD CULTURE SCREEN 2021-10-16 17:40:00 Amadou Putnam [facility] BLOOD CULTURE SCREEN 2021-10-16 17:40:00 Aamdou Putnam Un [facility] XR CHEST 1 VW 2021-10-16 16:56:36 [facility] VW 2021-10-16 16:56:36 [facility] BY PCR 2021-10-16 14:46:00 Amadou Putnam [facility] RESPIRATORY PANEL BY PCR 2021-10-16 14:46:00 Amadou Putnam [facility] PHOSPHORUS 2021-10-16 10:47:00 Josie [facility] MAGNESIUM 2021-10-16 10:47:00 Josie [facility] BASIC METABOLIC PANEL 2021-10-16 10:47:00 [facility] ([facility], K, CL, CO2, GLUCOSE, Medica l Branch BUN, CREATININE, CA) CBC WITH DIFF 2021-10-16 10:47:00 Samir Galindo [facility] AC PANEL 20 + LACTIC ACID 2021-10-16 10:47:00 [facility] PHOS[facility]US 2021-10-16 10:47:00 Samir Galindo [facility] MAGNESIUM 2021-10-16 10:47:00 [facility] BAS[facility] METABOLIC PANEL 2021-10-16 10:47:00 Samir Galindo [facility] (NA, K, CL, CO2, GLUCOSE, Medica l Branch BUN, CREATININE, CA) CBC WITH DIFF 2021-10-16 10:47:00 [facility] AC PANEL 20 + LACTIC ACID 2021-10-16 10:47:00 Samir Galindo [facility] C-REACTIVE PROTEIN 2021-10-15 22:38:00 Parada, [facility] TROPONIN I 2021-10-15 22:38:00 [facility] BASIC METABOLIC PANEL 2021-10-15 22:38:00 [facility] (NA, K, CL, CO2, GLUCOSE, Medica l Branch BUN, CREATININE, CA) C-REACTIVE PROTEIN 2021-10-15 22:38:00 Jennifer [facility] TROPONIN I 2021-10-15 22:38:00 [facility] BASIC METABOLIC PANEL 2021-10-15 22:38:00 [facility] (NA, K, CL, CO2, GLUCOSE, Medica l Branch BUN, CREATININE, CA) PNEUMOCOCCAL ANTIGEN 2021-10-15 21:49:00 Samir Galindo [facility] PNEUMOCOCCAL ANTIGEN 2021-10-15 21:49:00 Samir Galindo [facility] LEGIONELLA URINARY 2021-10-15 21:48:00 Samir Galindo [facility] ANTIGEN [facility] LEGIONELLA URINARY 2021-10-15 21:48:00 Samir Galindo [facility] CT ANGIOGRAM CHEST 2021-10-15 19:22:00 Anaya Kline [facility] CT ANGIOGRAM CHEST 2021-10-15 19:22:00 Anaya Kline [facility] TROPONIN I 2021-10-15 17:29:00 [facility] RAPID INFLUENZA A/B 2021-10-15 17:29:00 Nicol Bourgeois [facility] N-TERMINAL PRO-BNP 2021-10-15 17:29:00 Nicol Bourgeois [facility] PROCALCITONIN 2021-10-15 17:29:00 Nazia Bour[facility]ar[facility] COVID-19 (MOLECULAR 2021-10-15 17:29:00 Nicol Bourgeois [facility] NUCLEIC ACID AMPLIFICATION) LAB ONLY COVID 2021-10-15 17:29:00 [facility] TROPONIN I 2021-10-15 17:29:00 Blanca Talavera [facility] RAPID INFLUENZA A/B 2021-10-15 17:29:00 Nicol Bourgeois [facility] N-TERMINAL PRO-BNP 2021-10-15 17:29:00 Nicol Bourgeois [facility] PROCALCITONIN 2021-10-15 17:29:00 Vito Bourgeoisdaysi [facility] COVID-19 (MOLECULAR 2021-10-15 17:29:00 Nicol Bourgeois [facility] NUCLEIC ACID AMPLIFICATION) LAB ONLY COVID 2021-10-15 17:29:00 Nazia Bourgeoisharry [facility] INTERPRETATION [facility] COVID-19 (ID NOW RAPID 2021-10-15 13:03:00 Samir [facility] Medical Branch LAB ONLY COVID 2021-10-15 13:03:00 Josie [facility] COVID-19 (ID NOW RAPID 2021-10-15 13:03:00 Samir Galindo [facility] TESTING) Medical Branch LAB ONLY COVID 2021-10-15 13:03:00 Josie [facility] XR CHEST 1 VW 2021-10-15 09:46:38 [facility]ST 1 VW 2021-10-15 09:46:38 [facility] MAGNESIUM 2021-10-15 08:16:00 Josie [facility] BASIC METABOLIC PANEL 2021-10-15 08:16:00 Josie [facility] (NA, K, CL, CO2, GLUCOSE, Medica l Branch BUN, CREATININE, CA) PROCALCITONIN 2021-10-15 08:16:00 [facility] MAGNESIUM 2021-10-15 08:16:00 Josie [facility] BASIC METABOLIC PANEL 2021-10-15 08:16:00 Samir Galindo [facility] (NA, K, CL, CO2, GLUCOSE, Medica l Branch BUN, CREATININE, CA) PROCALCITONIN 2021-10-15 08:16:00 Ilan [facility] ABG+COOX+NA+K+GLU+CA2+ 2021-10-15 07:24:00 Samir Galindo [facility] ABG+COOX+NA+K+GLU+CA2+ 2021-10-15 07:24:00 Samir Galindo [facility] TROPONIN I 2021-10-15 07:10:00 Ilan [facility] CBC WITH DIFF 2021-10-15 07:10:00 Josie [facility] TROPONIN I 2021-10-15 07:10:00 [facility] CBC WITH DIFF 2021-10-15 07:10:00 Josie [facility] MRSA / MSSA SCREEN BY 2021-10-15 07:09:00 Samir Galindo [facility] PCR, [facility] MRSA / MSSA SCREEN BY 2021-10-15 07:09:00 Samir Galindo [facility], [facility] AUTHORIZATION FOR RELEASE 2021-06-09 05:01:00 Doctor Unassigned, [facility] [place] Plan of Care Planned Activity Planned Date Details Comments Source Goal Plan of Care Note [code = 26502-6] Goal Plan of Care Note [code = 62256-1] Goal Plan of Care Note [code = 57023-7] Goal Plan of Care Note [code = 71249-5] Goal Plan of Care Note [code = 00555-2] Goal Plan of Care Note [code = 16789-2] Goal Plan of Care Note [code = 88238-5] Goal Plan of Care Note [code = 50757-0] Goal Plan of Care Note [code = 00394-3] Goal Plan of Care Note [code = 81420-3] Goal Plan of Care Note [code = 09858-4] Goal Plan of Care Note [code = 35585-5] Goal Plan of Care Note [code = 39168-3] Goal Plan of Care Note [code = 28947-1] Goal Plan of Care Note [code = 90484-9] Goal Plan of Care Note [code = 96317-5] Goal Plan of Care Note [code = 04265-8] Goal Plan of Care Note [code = 18421-2] Goal Plan of Care Note [code = 95063-7] Goal Plan of Care Note [code = 17027-3] Goal Plan of Care Note [code = 40338-5] Goal Plan of Care Note [code = 10877-2] Goal Plan of Care Note [code = 16656-8] Goal Plan of Care Note [code = 35658-4] Goal Plan of Care Note [code = 83023-7] Goal Plan of Care Note [code = 21066-4] Goal Plan of Care Note [code = 28731-4] Goal Plan of Care Note [code = 96430-8] Goal Plan of Care Note [code = 44710-3] Goal Plan of Care Note [code = 47237-1] Goal Plan of Care Note [code = 75458-4] Goal Plan of Care Note [code = 34817-3] Goal Plan of Care Note [code = 49112-8] Goal Plan of Care Note [code = 31267-7] Goal Plan of Care Note [code = 89435-9] Goal Plan of Care Note [code = 06304-2] Goal Plan of Care Note [code = 49858-0] Goal Plan of Care Note [code = 97823-5] Goal Plan of Care Note [code = 88460-2] Goal Plan of Care Note [code = 16930-0] Goal Plan of Care Note [code = 75257-8] Goal Plan of Care Note [code = 85002-5] Goal Plan of Care Note [code = 57053-1] Goal Plan of Care Note [code = 61962-5] Goal Plan of Care Note [code = 09570-7] Goal Plan of Care Note [code = 57780-9] Goal Plan of Care Note [code = 57542-3] Goal Plan of Care Note [code = 94023-5] Goal Plan of Care Note [code = 01936-3] Goal Plan of Care Note [code = 86361-3] Goal Plan of Care Note [code = 59259-7] Goal Plan of Care Note [code = 61437-3] Goal Plan of Care Note [code = 62816-4] Goal Plan of Care Note [code = 72674-5] Goal Plan of Care Note [code = 96631-5] Goal Plan of Care Note [code = 12295-1] Goal Plan of Care Note [code = 11707-0] Goal Plan of Care Note [code = 39282-3] Goal Plan of Care Note [code = 31281-7] Goal Plan of Care Note [code = 06751-0] Goal Plan of Care Note [code = 08958-6] Goal Plan of Care Note [code = 45796-8] Goal Plan of Care Note [code = 55562-1] Goal Plan of Care Note [code = 98485-7] Goal Plan of Care Note [code = 81517-4] Goal Plan of Care Note [code = 25865-2] Goal Plan of Care Note [code = 91454-9] Goal Plan of Care Note [code = 33916-0] Goal Plan of Care Note [code = 24628-7] Goal Plan of Care Note [code = 71113-9] Goal Plan of Care Note [code = 34634-1] Goal Plan of Care Note [code = 49876-6] Goal Plan of Care Note [code = 41707-6] Goal Plan of Care Note [code = 45885-1] Goal Plan of Care Note [code = 61315-6] Goal Plan of Care Note [code = 56522-9] Goal Plan of Care Note [code = 14884-2] Goal Plan of Care Note [code = 93707-1] Goal Plan of Care Note [code = 98921-9] Goal Plan of Care Note [code = 75176-7] Goal Plan of Care Note [code = 05854-4] Goal Plan of Care Note [code = 46167-9] Goal Plan of Care Note [code = 06895-9] Goal Plan of Care Note [code = 47890-4] Goal Plan of Care Note [code = 69878-6] Goal Plan of Care Note [code = 53151-6] Goal Plan of Care Note [code = 08990-0] Goal Plan of Care Note [code = 51192-3] Goal Plan of Care Note [code = 73043-3] Goal Plan of Care Note [code = 44321-7] Goal Plan of Care Note [code = 69077-7] Goal Plan of Care Note [code = 72461-6] Goal Plan of Care Note [code = 97954-2] Goal Plan of Care Note [code = 76183-2] Encounters Start End Encounter Admission Attending Care Care Encounter Source Date/Time Date/Time Type Type Clinicians Facility Department ID 2023-05-04 2023-05-04 Emergency E MANAN WONG [facility] 1 [id number] [facility] 14:49:00 [facility]40[facility]-05-03 2023-05-03 Outpatient SFA SFA [id number] 023 [place] 10:11:47 10:11:47 0831 F Louis 2023-04-30 2023-04-30 Outpatient SFA SFA [id number] 023 [place] 08:40:38 08:40:38 0828 F Louis 2023-04-26 2023-04-26 Outpatient SFA SFA [id number] 023 [place] 14:46:53 14:46:53 0824 [place] 2023-04-24 2023-04-24 Outpatient [facility] [id number] [place] 08:12:09 08:12:09 0822 [place] 2023-04-14 2023-04-15 Emergency E BETSEY, [facility] ECC [id number] 21:33:00 05:47:00 TOKUNBO [facility] 2023-03-19 2023-03-19 Outpatient [facility] [id number] [place] 10:19:29 10:19:29 0717 [place] 2023-02-19 2023-02-19 Outpatient [facility] [id number] [place] 09:15:24 09:15:24 0619 [place] 2023-02-08 2023-02-08 Outpatient C RAKESH [facility] WWACU [id number] 07:25:00 11:19:00 LINDSEY [facility] 2022-12-25 2022-12-25 Outpatient [facility] [id number] 023 [place] 15:45:30 15:45:30 0424 [facility] 2022-12-25 2022-12-25 Orders Doctor LOIDA 1.2.840.114 [id number] Univers 00:00:00 00:00:00 Only Unassigned, BETH 350.1.13.10 [facility] 4.2.7.2.686 José Miguel as [phone] [address] 2022-12-21 2022-12-21 Outpatient [facility] [id number] 023 [place] 13:08:22 13:08:22 0420 [facility] 2022-12-19 2022-12-19 Outpatient [facility] [id number] 023 [place] 09:43:00 09:43:00 0418 [place] 2022-12-11 2022-12-11 Emergency E CRISTY, [facility] WWECC [id number] 20:12:00 22:35:00 LÁZARO [facility] 2022-12-10 2022-12-10 Emergency X GUY VTJS ERT [id number] Univers 19:03:00 20:52:00 OREN haywood [facility] 2022-12-10 2022-12-10 Emergency Guy [facility] 1.2.061.344 [id number] Univers 19:03:00 20:52:00 Oren MARTINES 350.1.13.10 i ty of [place] 4.2.7.2.686 [facility] [phone] [facility] [address] 2022-11-23 2022-11-23 Outpatient [facility] 023 [place] 09:56:39 09:56:39 0323 [place] 2022-11-22 2022-11-22 Orders Doctor LOIDA 1.2.840.114 [id number] Univers 00:00:00 00:00:00 Only Unassigned, BETH 350.1.13.10 ity of Sarah Ann [facility] 4.2.7.2.686 José Miguel [phone] [facility] [address] 2022-11-21 2022-11-21 Outpatient [facility] 023 [place] 08:34:36 08:34:36 0321 [place] 2022-11-04 2022-11-05 Outpatient X ZELDA OLSEN [facility] ERIN [id number] Univers 21:58:00 17:13:00 ity of [facility] 2022-11-04 2022-11-05 Emergency Yuniel Mccray [facility] 1.2.840. 114 [id number] Univers 21:58:00 17:13:00 Zelda Olsen [facility] 350.1.13.10 ity of [place] 4.2.7.2.686 [facility] [phone] [facility] [address] ([facility]) 2022-10-02 2022-10-02 Outpatient [facility] 023 [place] 10:16:38 10:16:38 0130 [place] 2022-09-25 2022-09-25 Outpatient [facility] 023 [place] 10:41:57 10:41:57 0123 [facility] 2022-09-25 2022-09-25 Outpatient [id number]- [id number] 651dy1-b 00:00:00 00:00:00 Visit v5c3-2j36 0r9-6h44-s -w3j0-sq5 8n1-jv74wu 6saj39444 v08536 2022-09-22 2022-09-22 Outpatient [facility] 023 [place] 10:48:03 10:48:03 0120 F [place] 2022-09-21 2022-09-21 Outpatient [facility] [id number] [place] 15:48:42 15:48:42 0119 F [place] 2022-09-21 2022-09-21 Outpatient [id number]- [id number] cc [id number] 00:00:00 00:00:00 Visit 00ee-40ce 0ee-40ce-9 -905f-e7d 05f-d0m413 1628fcacd 8fcacd 2022-08-17 2022-08-17 [facility] [id number] 10:58:00 13:20:00 LINDSEY [facility] 2022-08-11 2022-08-11 Outpatient [facility] [id number] [place] 11:20:53 11:20:53 1209 F [place] 2022-08-11 2022-08-11 Outpatient [id number] [id number] 00:00:00 00:00:00 Visit 742d-47ad 42d-47ad-a -kh97-6xl t67-1zos5r [id number] 2022-07-25 2022-07-27 Outpatient X [facility] ERIN [id number] Univers 19:54:00 14:01:00 chastity SHARMA [facility] 2022-07-25 2022-07-27 Emergency [facility] 1.2.840.114 [id number] Univers 19:54:00 14:01:00 [facility] 350.1.13.10 ity of [place] Anaya Sharma [place] 4.2.7.2.686 [facility] [phone] [place] [address] [address] ([facility]) 2022-07-20 2022-07-20 [facility] [id number] 13:25:00 16:55:00 LINDSEY [facility] 2022-06-24 2022-06-26 Inpatient X [facility] ERIN [id number] Univers 19:56:00 05:00:00 ZACHARY ity o f ANAYA [facility] 2022-06-24 2022-06-26 Hospital Jaden Siddiqui [facility] 1.2.840.1 14 [id number] Univers 19:56:00 05:00:00 Encounter Anaya Kline [facility] 350.1.13. 10 ity of [place].7.2.[place] [phone] [facility] [address] ([facility]) 2022-06-23 2022-06-23 Emergency E KAMERON, [facility] ECC [id number] 18:38:00 23:25:00 LORAINE [facility] 2022-06-21 2022-06-22 Outpatient E AMANUEL, [facility] TELE [id number] 23:43:00 10:50:00 CHRISTIAN [facility] [place] 2022-06-15 2022-06-15 [facility] [id number] 11:12:00 15:38:00 LINDSEY [facility]ica [facility] [place] 2022-06-08 2022-06-08 Orders Doctor LOIDA 1.2.840.114 [id number] Univers 00:00:00 00:00:00 Only Unassigned, BETH 350.1.13.10 ity of Sarah Ann [facility] 4.2.7.2.686 José Miguel [id number] [facility] [address] 2022-05-31 2022-05-31 Emergency X VASUT, [facility] ERT [id number] Univers 20:15:00 22:49:00 GABRIEL ity of [facility] 2022-05-31 2022-05-31 Emergency Vasut, [facility] 1.2.639.147 [id number] Univers 20:15:00 22:49:00 Gabriel MARTINES 350.1.13.10 i ty of [place] 4.2.7.2.686 [facility] [phone] [facility] 0[address] 2022-05-11 2022-05-11 Outpatient [facility] [id number] 11:42:00 23:59:00 LINDSEY [facility]ica [facility] [place] 2022-04-17 2022-04-17 Outpatient R PETTY MADISONL [facility] [id number] Univers 20:00:00 20:00:00 PETTY MADISONL itnorris [facility] 2022-04-15 2022-04-15 Outpatient R [facility] [id number] Univers 08:00:00 08:00:00 ity [facility] 2022-04-15 2022-04-15 Outpatient ye2di0b1- [id number] ad 9vj9c3-8 00:00:00 00:00:00 Visit 77g1-1i58 4b9-9s82-3 -2v5y-7q1 p3w-3y0gd3 [id number] 1074-08-04 2022-04-06 Outpatient C KANDICEIGNACIO [facility] WWACU [id number] 12:15:00 16:00:00 [facility] 2022-03-15 2022-03-15 Angle Roll Operator 1, [facility] Sleep Lab Bed [facility] 1. 2.840.114 [id number] Univers 20:00:00 22:30:00 Visit Wilmar Madison [place] 350.1.13. 10 ity [facility] 4.2.7.2.686 [facility] [id number] [facility] [address] 2022-03-15 2022-03-15 Outpatient R PETTY MADISONL [facility] [id number] Univers 20:00:00 20:00:00 PETTY MADISONL itnorris [facility] 2022-03-14 2022-03-14 Laboratory Only, [facility] Test [facility] 1.2.840. 114 [id number] Univers 15:30:00 15:45:00 Only Wilmar Madison T [place] 350.1.13. 10 ity [facility] 4.2.7.2.686 [facility] [phone] [facility] [address] 2022-03-14 2022-03-14 Outpatient R LESTER MADISONHIL [facility] [id number] Univers 15:30:00 15:30:00 ATAPETTY NOLASCOL ity [facility] 2022-03-14 2022-03-14 Orders Doctor LOIDA Araujo2.840.114 [id number] Univers 00:00:00 00:00:00 Only Unassigned, BETH 350.1.13.10 ity of Sarah Ann [facility] 4.2.7.2.686 [facility] [phone] [facility] 009 [address] 2022-02-25 2022-02-26 Outpatient X ABU [facility] ERIN [id number] Univers 18:18:00 12:30:00 chastity SHARMA o f [facility] 2022-02-25 2022-02-26 Emergency Sobeida Samson [facility] 1.2.8 40.114 [id number] Univers 18:18:00 12:30:00 Abu Anaya Sharma [facility] 350.1.13.10 ity of [place] 4.2.7.2.686 [facility] [phone] [facility] [address] ([facility]) 2022-02-22 2022-02-23 Emergency X YA, [facility] ERT [id number] Univers 21:42:00 01:19:00 BRO haywood [facility] 2022-02-22 2022-02-23 [facility] 1.2.840.114 [id number] Univers 21:42:00 01:19:00 Brodavid MARTINES 350.1.13.10 i ty [facility] 4.2.7.2.686 [facility] [phone] [facility] 084 [address] 2022-01-29 2022-01-29 Emergency X JADEN SIDDIQUI [facility] ERT [id number] Univers 14:38:00 16:55:00 JADEN SIDDIQUI [facility] 2022-01-29 2022-01-29 Emergency Edgard [facility] 1.2.895.226 [id number] Univers 14:38:00 16:55:00 [facility] 350.1.13.10 it y of [place] 4.2.7.2.686 [facility] [phone] [facility] 014 Branch ([facility]) 2022-01-29 2022-01-29 Emergency X MIGUEL ÁNGEL [facility] ERT [id number] Univers 07:51:00 10:37:00 MAI haywood [facility] 2022-01-29 2022-01-29 Emergency [facility] 1.2.840.114 [id number] Univers 07:51:00 10:37:00 Mai MARTINES 350.1.13.10 ity of [place] 4.2.7.2.686 [facility] [id number] [place] [address] [place] 2022-01-05 2022-01-05 Outpatient C RAKESH [facility] [id number] [facility] 10:46:00 14:42:00 [facility] 2022-01-02 2022-01-03 Emergency X SHARON [facility] ERT [id number] Univers 21:43:00 00:14:00 JACKLYN haywood [facility] 2022-01-02 2022-01-03 Emergency [facility] 1.2.468.467 [id number] Univers 21:43:00 00:14:00 Jacklyn MARTINES 350.1.13.10 ity of [place] 4.2.7.2.686 [facility] [phone] [place] [address] [place] 2021-12-08 2021-12-08 Transition SABINA Heart 1.2.840.114 [id number] Univers 00:00:00 00:00:00 of Care Marjan LEVYY 350.1.13.10 i ty of [place] [id number] [facility] [address] 2021-12-05 2021-12-07 Inpatient X MARY VTJS ERIN [id number] Univers 17:33:00 12:01:00 GELY haywood [facility] 2021-12-05 2021-12-07 Hospital Oren Tovar [facility] 1.2.840.1 14 [id number] Univers 17:33:00 12:01:00 Encounter Jacklyn Guillen 350.1.13.1 0 ity of Gely Hernandez 4.2.7.2.686 [facility] [id number] [place] [address] Branch 2021-12-03 2021-12-05 Outpatient X [facility] ERIN [id number] Univers 12:50:00 05:42:00 WILFRID ity of [facility] 2021-12-03 2021-12-05 [facility] Maury Brush [facility] 1.2.84 0.114 [id number] Univers 12:50:00 05:42:00 Encounter Wilfrid Pearson HEALTH 350.1.13.10 ity of [place] [id number] [facility] [address] [place] ([facility]) 2021-11-23 2021-11-23 Orders Doctor LOIDA 1.2.840.114 [id number] Univers 00:00:00 00:00:00 Only Unassigned, BETH 350.1.13.10 ity of Sarah Ann [facility] 4.2.7.2.686 José Miguel as [id number] [address] 2021-11-09 2021-11-11 Outpatient X [facility] [id number] Univers 18:47:00 17:31:00 WILFRID ity [facility] 2021-11-09 2021-11-11 Emergency Sobeida Samson [facility] 1.2.8 40.114 [id number] Univers 18:47:00 17:31:00 Wilfrid Pearson HEALTH 350.1.13.10 ity of [place].2.[place] [id number] [facility] [address] [place] ([facility]) 2021-11-07 2021-11-07 Orders Doctor LOIDA 1.2.840.114 [id number] Univers 00:00:00 00:00:00 Only Unassigned, BETH 350.1.13.10 ity of [place] Ann [facility] 4.2.7.2.686 José Miguel as [id number] [address] 2021-11-03 2021-11-03 Orders Doctor LOIDA 1.2.840.114 [id number] Univers 00:00:00 00:00:00 Only Unassigned, BETH 350.1.13.10 ity of [place] Ann [facility]OSPITAL 4.2.7.2.686 José Miguel as [id number] [address] 2021-10-25 2021-10-25 Transition SABINA Waters 1.2.840.114 [id number] Univers 00:00:00 00:00:00 of Care Any DOHERTY 350.1.13.10 i ty of [place].2.[place] [id number] [facility] [address] 2021-10-15 2021-10-24 [facility] [id number] Univers 00:23:00 17:53:00 FLASH ity of [facility] 2021-10-15 2021-10-24 Hospital Blanca Talavera [facility] 1.2.840.114 [id number] Univers 00:23:00 17:53:00 Encounter Josie Samir HEALTH 350.1.13.10 ity of [place] 4.2.7.2.686 [facility] [phone] [facility] [address] [place] ([facility]) 2021-10-21 2021-10-21 Surgery Abu [facility] 1.2.840.114 [id number] Univers 10:00:00 10:45:00 Atherah, HEALTH 350.1.13.10 i ty of [place].2.[place] [id number] [facility] [address] ([facility]) 2021-06-09 2021-06-09 Orders Doctor LOIDA 1.2.840.114 [id number] Univers 00:00:00 00:00:00 Only Unassigned, BETH 350.1.13.10 ity of Sarah Ann [facility] 4.2.7.2.686 José Miguel as [phone] [facility] 00[address] 2012-11-25 2012-11-25 Outpatient GABRIEL SHAIKH [facility] 20 [id number] Univers 00:00:00 16:37:20 GABRIEL SHAIKH 3 i ty of [facility] 2012-04-08 2012-04-08 Outpatient [facility] [id number] Univers 00:00:00 16:51:12 1 ity of [facility] 2011-04-13 2011-04-13 Outpatient [facility] [id number] Univers 00:00:00 10:43:11 1 ity of [facility] 2010-09-15 2010-09-15 Outpatient [facility] [id number] Univers 00:00:00 11:23:[address] [facility] 2010-03-11 2010-03-11 Outpatient [facility] [id number] Univers 00:00:00 16:25:[address] [facility] 2009-09-13 2009-09-13 Outpatient [facility] [id number] Univers 00:00:00 16:22:[address] [facility] 2009-08-31 2009-08-31 Outpatient [facility] [id number] Univers 00:00:00 09:36:[address] [facility] Results Test Description Test Time Test Comments Results Result Comments Source TSH, THIRD GENERATION 2023-05-01 06:05:55 Test Item Value Reference Range Interpretation Comme nts TSH, THIRD GENERATION (test 1.820 UIU/ML 0.400-4.100 UNLESS OTHERWISE INDICATED, code = 2821) ALL TESTING PER FORMED AT CLINICAL PATHOL [facility] [place] [address] 2576 STOCK CONTROL CLERK: Siri EMANUEL [id number] [place] [id number] U/S GALLBLADDER*WW*2023-04-15 05:22:28 [facility] : 1970 Sex: FDICTATION LOCATION: [id number]: Female, 52 years of age with abdominal painEXAM: ULTRASOUND OF THE RIGHT UPPER QUADRANTCOMPARISON: CT abdomen pelvis performed earlier the same dayTECHNIQUE: Real-time grayscale 2-D imaging, pulse wave Doppler with spectral analysis, and Doppler color flow imaging were performed with the variable megahertz curved array transducer transabdominally.STATEMENT: Exam quality is acceptable.FINDINGS: PANCREAS: Head and body within normal limits. Tail obscured by bowel gas. GALLBLADDER: Nonmobile heterogeneous echogenic material without significant posterior acoustic shadowing seen within the posterior gallbladder lumen measuring 2.6 x 1.2 x 1.6 cm. No internal vascularity with color Doppler. No obvious shadowing gallstones. Gallbladder wall mildly thickened at 3 mm. No pericholecystic fluid.COMMON BILE DUCT: 4.7 mm, normal caliber. LIVER: Normal in echogenicity. No focal mass or enlargement. Portal vein is patent with appropriate hepatopedal flow.RIGHT KIDNEY: Unremarkable. OTHER: Thereis no ascites.IMPRESSION: 1. Heterogeneous echogenic material within gallbladder lumen, most likely tumefactive sludge. No obvious gallstones.2. Mild gallbladder wall thickening.3. No biliary dilatation. Electronically signed by: Desiree Rodrigues MD 04/15/2023 5:22 AM CDT ABDOMEN AND PELVIS WITH CONTRAST*WW*2023-04-15 02:03:27 [facility] : 1970 Sex: FEXAM: CT ABDOMEN PELVIS WITH IV CONTRASTLOCATION: D71VAYSOEL: Abdominal painTECHNIQUE: Serial axial CT images were obtained from above the diaphragm to the proximal femurs with the administration of intravenous contrast. Oral contrast was not administeredPhase(s): Portal venousReformats: Standard coronal and sagittal r eformats provided.The exam was performed according to our departmental dose- optimization program, which includes automated exposure control, adjustment of the mA and/or kV according to patient size and/or use of iterative reconstruction technique.Unless otherwise specified, incidental findings do not require dedicated imaging follow-up.COMPARISON: None available.FINDINGS:LUNG BASES: Minimal consolidation and groundglass opacities noted in the dependent right lower lobe.LIVER: Elevated right hemidiaphragm containing a portion of the liver. Incidental large hepatic cleft noted at segment 7. No focal l esions.BILIARY: Mild gallbladder wall thickening and wall enhancement. Nondistended with no calcified gallstones. No intrahepatic or extrahepatic biliary ductal dilation.PANCREAS: Normal.SPLEEN: Normal.ADRENALS: Normal.KIDNEYS: The kidneys are normal in size with symmetric enhancement. No hydronephrosis or kidney stones.GENITOURINARY: The ureters are nondilated throughout. The bladder is partially distended with no gross abnormalities. The uterus appears normal. No adnexal masses.GASTROINTESTINAL: The distal esophagus is unremarkable. The stomach is partially distended with no contour abnormality. The small and large bowel loops demonstrate no signs of obstruction or focal inflammation. No diverticulosis. The appendix is normal.VASCULAR: The abdominal aorta is nonaneurysmal. No significant atherosclerosis. The main portal vein is patent.LYMPH NODES: No enlarged lymph nodes.MESENTERY: No free airor loculated fluid collections.SOFT TISSUES: Unremarkable.BONES: No acute osseous findings.IMPRESSION:Mild gallbladder wall thickening and wall enhancement, which is a nonspecific finding given lack ofcalcified gallstones or gallbladder distention. Differential includes both early acute and chronic ch olecystitis.Minimal consolidation and groundglass opacities in the right lower lobe, representing prominent atelectasis or sequelae of aspiration with or without developing infection.Electronically signed by: Siddhartha Jackson DO 04/15/2023 2:03 AM CDT [id number] WITH MICRO *WW*2023-04-15 01:39:00 Test Item Value Reference Range Interpretation Comments COLOR (test code = COLU) YELLOW YELLOW CLARITY (test code = CLA) CLOUDY CLEAR A GLUCOSE UR (test code = UA NEGATIVE NEGATIVE GLUCOSE) BILI UR (test code = BILE) NEGATIVE NEGATIVE KETONES UR (test code = MELLY) TRACE NEGATIVE A SP GRAVITY (test code = SPGR) 1.031 1.005-1.030 H PH UR (test code = PH) 6.0 4.5-8.0 PROTEIN UR (test code = PU) 1+ NEGATIVE A UROBIL UR (test code = UROQ) 1.0 EU/dL 0.2-1.0 NITRITE UR (test code = NEGATIVE NEGATIVE NITRITE) BLOOD UR (test code = UA BLOOD) NEGATIVE NEGATIVE LEUK ES UR (test code = LEUK) 1+ NEGATIVE A WBC UR (test code = UWBC) 5 /HPF 0-5 RBC UR (test code = URBC) 0 /HPF 0-2 EPITH UR (test code = UEPC) MANY /LPF FEW A BACTERIA UR (test code = UBACT) MODERATE /HPF NONE A CAST UR (test code = CAST) /LPF NONE CRYSTAL UR (test code = CRYU) / LPF NONE MUCUS UR (test code = MUC) / HPF NONE AMORPH UR (test code = YOLANDA) FEW / HPF NONE A TRICH UR (test code = UTRICH) /HPF NONE YEAST UR (test code = UY) /HPF NONE SPERM UR (test code = USPERM) /HPF NONE URINE MONOCLONAL 2023-04-15 01:22:00 Test Item Value Reference Range Interpretation Comments PREG UR (test code = PGU) NEGATIVE NEGATIVE BRAIN NATRIURETIC PEPTIDE 2023-04-15 00:35:00 Test Item Value Reference Range Interpretation Comments BNP (test code = 16 pg/mL See_Comment [Automated message] The A74) system which ge nerated this result tra nsmitted reference range : <=100. The reference r nicholas was not used to int erpret this result as earnest l/abnormal. PRO TIME AND PTT 2023-04-15 00:29:00 Test Item Value Reference Range Interpretation Comments PT (test code = 11.9 s 9.8-13.6 TT) INR (test code = 1.0 INR) INRH (test code = SUGGESTED THERAPEUTIC INRH) RANGE FOR INR: 2.5 - 3.5 For Patients with Prosthetic Valves or Patients with recurrent Thromboembolic Events 2.0 - 3.0 For Most Other Applications PTT (test code = 26.5 s 20.2-38.0 PTT) PTTH (test code = To monitor the PTTH) effectiveness of heparin, we offer the Anti-Xa (Heparin Assay). It can be used for either unfractionated or LMW Heparin. Order Code is ANTI-XA COMPREHENSIVE METABOLIC ENRIQUE *WW*2023-04-15 00:26:00 Test Item Value Reference Range Interpretation Comments GLUCOSE (test code 107 mg/dL 75-100 H = 06D) SODIUM (test code 142 mmol/L 136-145 = 01A) POTASSIUM (test 3.0 mmol/L 3.6-5.1 L code = 01B) CHLORIDE (test 106 mmol/L 98-107 code = 04A) CO2 (test code = 28 mmol/L 20-31 02A) ANION GAP (test 11.0 mmol/L code = ANG) BUN (test code = 12 mg/dL 9-23 05D) CREATININE (test 1.3 mg/dL 0.6-1.0 H code = 03E) GFR (test code = 47 See_Comment L [Automated GFR) mL/min/1.73m\\S\\2 message] Th e system which generated this result transmit britney reference range : >=90. The reference range was not used to interpret this result as normal/abnormal . GFR 55 See_Comment L [Automated MALDIVIAN (test mL/min/1.73m\\S\\2 message] The code = GFRAA) system which generated this result transmit britney reference range : >=90. The reference range was not used to interpret this result as normal/abnormal . EGFR (test code = eGFR BY EGFR) CKD-EPI CALCULATION IS NOT RECOMMENDED FOR PATIENTS UNDER 18 YEARS OF AGE. BUN/CREA (test 9 12-20 L code = BCR) CALCIUM (test code 9.2 mg/dL 8.3-10.6 = 09D) BILI TOTAL (test 0.2 mg/dL 0.2-1.0 code = 11A) PROTEIN (test code 6.9 g/dL 5.7-8.2 = 07D) ALBUMIN (test code 4.5 g/dL 3.2-4.8 = 08D) GLOBULIN (test 2.4 g/dL 1.5-3.8 code = GLB) ALB/GLOB (test 1.9 1.0-2.6 code = AGRR) ALK PHOS (test 117 IU/L 46-116 H code = 35A) AST (test code = 19 IU/L See_Comment [Automated 30A) message] The system which generated this result transmit britney reference range : <=33. The reference range was not used to interpret this result as normal/abnormal . ALT (test code = 33 IU/L 10-49 31A) LIPASE SERUM WW2023-04-15 00:26:00 Test Item Value Reference Range Interpretation Comments LIPASE (test code = 60A) 36 IU/L 12-53 TROPONIN I *WW*2023-04-15 00:25:00 Test Item Value Reference Range Interpretation Comments TROPONIN I (test code = A84) 13.47 pg/mL 0.00-45.20 CBC (INCLUDES AUTOMATED DIFFERENTIAL)*[id number] 00:18:00 Test Item Value Reference Range Interpretation Comments WBC (test code = WBC) 5.0 10\\S\\3/uL 4.5-11.0 RBC (test code = RBC) 4.93 10\\S\\6/uL 4.20-5.60 HGB (test code = HBG) 12.7 g/dL 12.0-15.5 HCT (test code = HCT) 41.2 % 35.0-44.0 MCV (test code = MCV) 83.6 fL 81.0-99.0 MCH (test code = MCH) 25.8 pg 27.0-31.0 L MCHC (test code = MCHC) 30.8 g/dL 32.0-36.0 L RDW (test code = RDW) 15.2 % 11.5-14.5 H PLT (test code = PLT) 243 10\\S\\3/uL 130-400 MPV (test code = MPV) 11.0 fL 9.4-12.4 NEUTROP # (test code = NE#) 2.7 10\\S\\3/uL 1.6-8.0 LYMPH # (test code = LY#) 1.8 10\\S\\3/uL 1.1-3.5 MONOCYTE # (test code = MO#) 0.4 10\\S\\3/uL 0.0-1.1 EOSINOPH # (test code = EO#) 0.2 10\\S\\3/uL 0.0-0.7 BASOPHIL # (test code = BA#) 0.1 10\\S\\3/uL 0.0-0.3 IG # (test code = IG#) 0.01 10\\S\\3/uL 0.00-0.06 NRBC # (test code = NRBC#) 0.00 10\\S\\3/uL 0.00-0.01 NEUTROPH % (test code = NE%) 53.2 % 35.0-73.0 LYMPH % (test code = LY%) 35.0 % 20.0-55.0 MONO % (test code = MO%) 7.4 % 2.5-10.0 EOSINOPH % (test code = EO%) 3.0 % 0.0-5.0 BASOPHIL % (test code = BA%) 1.2 % 0.0-2.0 IG % (test code = IG%) 0.2 % 0.0-0.8 NRBC% (test code = NRBC%) 0.0 % 0.0-0.2 MANDIFF (test code = WMDIFF) NO NO RBC MORPH (test code = NORMAL WRBCMOR) C-ARM<1 HR W IMAGES*WW*2023-02-08 11:26:14 [facility] 1970 Sex: FFluoroscopyLocation Code: [id number] HISTORY: Back painComments: Fluoroscopy was provided during lumbar RFA. Approximately fluoroscopy time was 9.1 seconds. 2 fluoroscopic spot images were taken.IMPRESSION: Fluoroscopyservices provided. Please see operative report for full details.Electronically signed by: Iglesia Garvey MD 02/08/2023 11:26 AM CDT + LH [id number] 07:50:33 Test Item Value Reference Range Interpretation Comments FOLLICLE STIM HORMONE 42.3 IU/L SEE BELOW EXPECTED (test code = 2700) VALUES FO R FSH FOR FEMALES >17 YEA RS FOLLICU LAR 3.5-12.5 IU/L M ID-CYCLE PEAK 4.7-21.5 I U/L LUTEAL PHASE 1 .7-7.7 IU/L POSTMENOPA USAL 25.8-134.8 IU/L LUTEINIZING HORMONE 25.7 IU/L SEE BELOW EXPECTED (test code = 2776) VALUES FO R LH FOR FEMALES >17 YEA RS MALES F EMALES >=18 YEARS 1.8 -8.6 IU/L FOLLICULAR 2.4-12.6 IU/L M ID-CYCLE PEAK 14.0-95.6 IU/L LUTEAL PHASE 1 .0-11.4 IU/L POSTMENOPA USAL 7.7-58.5 IU/L * [facility] has important p athology staff changes e ffective 11/01/2022. New pathology staff will provide uninter rupted, excellent patie nt care and clinical consultation. S ee URL: [email or web address]. UNLESS OTHERWISE INDIC ATED, ALL TESTING PER FORMED AT [facility], [facility]. [address] [place] [address] LABORATOR Y DIRECTOR: Siri EMANUEL SKYLA NUMBER [id number] CAP ACCREDITATION N O. [id number] XR KNEE RIGHT 1 OR 2 VIEW *WW*2022-12-11 21:28:07 [facility] 1970 Sex: FExam: Right knee2 views.CLINICAL HISTORY: Pain in lower limb.LOCATION: D4.FINDINGS: AP and lateral views of the right knee demonstrate mild sclerosis at the medial compartment with mild medial joint space narrowing. There is mild spur formation at the quadriceps tendon insertion. There is a moderate joint effusion..IMPRESSION:1. There is a moderate joint effusion.2. Mild degenerative changes with mild medial joint space narrowing.Electronically signed by: Alexey Ott MD 12/11/2022 9:28 PM CDT [id number] STIMULATING [id number] 17:34:00 Test Item Value Reference Range Interpretation Comments TSH (test code = 1.00 See_Comment Biotin has been [id number]) reported to cau se a negative bias, interpret resul ts relative to pat che's use of biotin. [Automated mess age] The system [employer] generated this result transmitted ref erence range: 0.45 - 4 .70 mIU/L. The refe rence range was not u sed to interpret this result as normal/abnor mal. Lab Interpretation (test Normal code = 37366-4) [facility] [id number] 14:56:35 Test Item Value Reference Range Interpretation Comments TROPONIN I (test code = 0.009 ng/mL <=0.034 2438024842) LUCILLE (test code = LUCILLE) Reference (Normal) Range (defined by the 99th percentile reference [...] biotin. Lab Interpretation Normal (test code = 86550-6) [facility] [id number] 07:53:48 Test Item Value Reference Range Interpretation Comments TROPONIN I (test code = 0.004 ng/mL <=0.034 2273006647) LUCILLE (test code = LUCILLE) Reference (Normal) Range (defined by the 99th percentile reference [...] biotin. Lab Interpretation Normal (test code = 05698-7) [facility] ResourcesN-TERMINAL [id number] 07:53:48 Test Item Value Reference Range Interpretation Comments NT-proBNP (test code = 61 pg/mL <=125 1809005981) LUCILLE (test code = LUCILLE) Biotin has been reported to cause a negative bias, interpret results relative to patient's use of biotin. Lab Interpretation (test Normal code = 68509-2) [facility] ResourcesCOMP. METABOLIC PANEL (86888)2022-11-05 07:41:51 Test Item Value Reference Range Interpretation Comments NA (test code = 139 mmol/L 135-145 8262724744) K (test code = 4.4 mmol/L 3.5-5.0 0546300203) CL (test code = 106 mmol/L 98-108 1269434381) CO2 TOTAL (test code 26 mmol/L 23-31 = 4213151511) AGAP (test code = 7 2-16 3936427557) BUN (test code = 9 mg/dL 7-23 2814365311) GLUCOSE (test code = 100 mg/dL 70-110 4201115520) CREATININE (test code 0.86 mg/dL 0.50-1.04 = 1449644476) TOTAL BILI (test code 0.4 mg/dL 0.1-1.1 = 2492908039) CALCIUM (test code = 9.1 mg/dL 8.6-10.6 9514565586) T PROTEIN (test code 6.8 g/dL 6.3-8.2 = 1159454577) ALBUMIN (test code = 4.1 g/dL 3.5-5.0 2491917663) ALK PHOS (test code = 74 U/L 34-122 6023177751) ALTv (test code = 21 U/L 5-35 1742-6) AST(SGOT) (test code 23 U/L 13-40 = 3935981699) eGFR (test code = 69.6 mL/min/1.73m2 1185043443) LUCILLE (test code = LUCILLE) Association of Glomerular Filtration Rate (GFR) and Staging of Kidney Disease* + + +- +| GFR (mL/min/1.73 m2) ?| With Kidney Damage ?| ?Without Kidney Damage+ ------+ ----+ ------+| ?>90 ?| ?Stage one ?| ? Normal ?+ -+ + -+| ?60-89 ?| ?Stage two ?| ? Decreased GFR ? + + +- +| ?30-59 ?| ?Stage three ?| ? Stage three ? + + +- +| ?15-29 ?| ?Stage four ? | ? Stage four ?+ -+ + -+| ?<15 (or dialysis) ? ?| ?Stage five ? | ? Stage five ?+ -+ + -+ *Each stage assumes the associated GFR level [...] or urine or abnormalities in imaging tests). [facility] ResourcesPREGNANCY TEST, [id number] 07:39:46 Test Item Value Reference Range Interpretation Comments PREG SERUM (test code Negative = 7502236884) LUCILLE (test code = LUCILLE) Less than 10 IU/L. ?If low titer or ectopic is suspected, resubmit specimen in 48-72 hours. [facility] ResourcesACTIVATED PARTIAL THRMPLAS [id number] 07:39:31 Test Item Value Reference Range Interpretation Comments APTT Patient (test code = 27 See_Comment [ Automated message] 3173-2) The system [employer] generated this result transmitted ref erence range: 26 - 36 Seconds. The re ference range was not u sed to interpret this result as normal/abnor mal. Lab Interpretation (test Normal code = 90288-5) [facility] ResourcesPROTHROMBIN TIME / [id number] 07:39:31 Test Item Value Reference Range Interpretation Comments PROTIME PATIENT (test 13.4 See_Comment H [Auto mated message] code = 5964-2) The system Definition 6 ich generated this result transmitted ref erence range: 10.1 - 1 2.6 Seconds. The reference range was not used to int erpret this result as normal/abnormal . INR (test code = 6301-6) 1.2 Nor mal INR <1.1; Warfarin Therap eutic range 2.0 to 3. 0 or 2.5 to 3.5, dep ending upon the indica tions. Lab Interpretation (test Abnormal code = 07773-6) [facility] ResourcesD-[id number] 07:39:31 Test Item Value Reference Interpretation Comments Range D-DIMER (test code = 1.06 See_Comment H [Autom ated 9403654914) message] The system which generated this result [...] diagnosis. Lab Interpretation Abnormal (test code = 91731-0) [facility] ResourcesCB WITH [id number] 07:28:32 Test Item Value Reference Range Interpretation Comments WBC (test code = 6.53 See_Comment [Automated 6690-2) message] The sy stem which generated this result transmitted reference range : 4.30 - 11.10 10*3/?L. The reference range was not used to interpret this result as normal/abnormal . RBC (test code = 4.97 See_Comment [Automated 789-8) message] The sy stem which generated this result transmitted reference range : 3.93 - 5.25 10*6/?L. The reference range was not used to interpret this result as normal/abnormal . HGB (test code = 13.0 g/dL 11.6-15.0 718-7) HCT (test code = 40.2 % 35.7-45.2 4544-3) MCV (test code = 80.9 fL 80.6-95.5 787-2) MCH (test code = 26.2 pg 25.9-32.8 785-6) MCHC (test code = 32.3 g/dL 31.6-35.1 786-4) RDW-SD (test code = 46.0 fL 39.0-49.9 91238-8) RDW-CV (test code = 15.6 % 12.0-15.5 H 788-0) PLT (test code = 272 See_Comment [Automated 777-3) message] The sy stem which generated this result transmitted reference range : 166 - 358 10*3/ ?L. The reference r nicholas was not used to interpret this result as normal/abnormal . MPV (test code = 11.5 fL 9.5-12.9 13536-6) NRBC/100 WBC (test 0.0 See_Comment [Automat ed code = 1159514831) message] The system which generated this result transmitted reference range : 0.0 - 10.0 /100 WBCs. The refer ence range was not u sed to interpret th is result as normal/abnormal . NRBC x10^3 (test code See_Comment [Auto mated = 0922137137) message] The s ystem which generated this result transmitted reference range : 10*3/?L. The reference range was not used to interpret this result as normal/abnormal . GRAN MAT (NEUT) % 58.2 % (test code = 770-8) IMM GRAN % (test code 0.20 % = 6297063190) LYMPH % (test code = 31.1 % 736-9) MONO % (test code = 9.3 % 5905-5) EOS % (test code = 0.3 % 713-8) BASO % (test code = 0.9 % 706-2) GRAN MAT x10^3(ANC) 3.80 10*3/uL 1.88-7.09 (test code = 7793078049) IMM GRAN x10^3 (test 0.00-0.06 code = 0047335736) LYMPH x10^3 (test code 2.03 10*3/uL 1.32-3.29 = 731-0) MONO x10^3 (test code 0.61 10*3/uL 0.33-0.92 = 742-7) EOS x10^3 (test code = 0.03-0.39 L 711-2) BASO x10^3 (test code 0.06 10*3/uL 0.01-0.07 = 704-7) Lab Interpretation Abnormal (test code = 03539-3) [facility] ResourcesALBUMIN/CREATININE RATIO, URINE, RANDOM 2022-11-03 05:51:41 Test Item Value Reference Range Interpretation Comments CREATININE, URINE, 356.1 MG/DL NOT ESTAB CONC. (test code = 2072) ALBUMIN, URINE, 2.0 MG/DL NOT ESTAB RANDOM (test code = 30864) CALC 6 MG/G <30 Note: ALBUMIN/CREAT, RND Albumin/C reatinine ratio (test code = reference inter casper 71374) reflects ADA an d NKF guidelines. [facility] has important patho logy staff changes e ffective 11/01/2022. New pathology staff will provide uninter rupted, excellent patie nt care and clinical consultation. S ee URL: [email or web address]. UNLESS OTHERWISE INDICATED, ALL TESTING PERFORMED AT [facility] [employer] [address] [place] [address] 4 LABORATORY DIRE CTOR: SADIQ KILGORE M.D. CLIA NUMBER [id number] [place] [id number] 05:26:24 Test Item Value Reference Range Interpretation Comments NT-proBNP <50 PG/ML SEE BELOW If NT-ProBNP i s less than 300 (test code = PG/ML, heart fa ilure is unlikely 27189) for allages. Age............ .....Heart Failure Likely <50 Years.......... .>=450 PG/ML 50-75 Years.... .....>=900 PG/ML > 75 Years..... .....>=1800 PG/ML Methodology: [employer] inescense Immunoassay COMPREHENSIVE METABOLIC [id number] 06:45:27 Test Item Value Reference Range Interpretation Comments GLUCOSE (test code = 126 MG/DL 70-99 H 2216) BUN (test code = 12 MG/DL 02-20) CREATININE (test 1.24 MG/DL 0.60-1.30 code = 221) eGFR (2020 CKD-EPI) 53 ML/MIN/1.73 >60 L The N KF-ASN (test code = 93559) Taskforc e recommends use of Cystatin C to confirm eGFR inadults at ris k for CKD. [facility] offers eGFR with Cystatin C-Creatinineusi ng the 2020 CKD-EP I eGFR_creat-cyst at equation (order code 3057) toincreas e the accuracy of estimated GFR. For more informatio n, contactyour acc ount executive or se e announcement [email or web address] [email or web address] CALC BUN/CREAT (test 10 RATIO -28 code = 223) SODIUM (test code = 144 MEQ/L 500-856 5016) POTASSIUM (test code 4.0 MEQ/L 3.5-5.4 = 2227) CHLORIDE (test code 110 MEQ/L 95-107 H = 2214) CARBON DIOXIDE (test 18 MEQ/L 19-31 L code = 220) CALCIUM (test code = 9.3 MG/DL 8.5-10.5 2208) PROTEIN, TOTAL (test 6.7 G/DL 6.1-8.3 code = 222) ALBUMIN (test code = 4.3 G/DL 3.5-5.2 2200) CALC GLOBULIN (test 2.4 G/DL 1.9-3.7 code = 2240) CALC A/G RATIO (test 1.8 RATIO 1.0-2.6 code = 2234) BILIRUBIN, TOTAL 0.3 MG/DL See_Comment [Automated message] (test code = 2207) The syste m which generated this result transmit britney reference range : <=1.2. The refe rence range was not u sed to interpret th is result as normal/abnormal . ALKALINE PHOSPHATASE 77 U/L 40-130 (test code = 2204) AST (test code = 16 U/L 9-40 2217) ALT (test code = 15 U/L 5-40 2218) LIPID [id number] 06:45:27 Test Item Value Reference Range Interpretation Comments CHOLESTEROL (test 182 MG/DL <200 code = 2210) TRIGLYCERIDES (test 82 MG/DL <150 code = 2232) HDL CHOLESTEROL (test 50 MG/DL >39 code = 2220) CALC LDL CHOL (test 114 MG/DL <100 H NOTE: C ALCULATED LDL code = 2237) IS BASED ON GLENIS-MIRELES METHOD WHICHINCLUDES ADJUSTABLE TRIGLYCERIDE:VL DL CHOLESTEROL RAT IO.THIS FACTOR VARIES B Y MEASURED TRIGLY CERIDE AND NON-HDLCHOL ESTEROL CONCENTRATIONS WITH INCREASED CALCU LATED LDL SEENIN HIGH ER TRIGLYCERIDE OR LOWER NON-HDL SPECIME NS. FOR MOREINFORMATION , SEE CLIENT ANNOUNCE MENT AT [email or web address] LDL/HDL 2.28 RATIO <3.22 (test code = 223) HEMOGLOBIN [id number] 02:34:56 Test Item Value Reference Range Interpretation Comments HEMOGLOBIN A1c (test 6.4 % 4.2-5.6 H UNLESS OTHERWISE code = 61538) INDICATED, ALL TESTING PERFORMED ATCL[facility] [address] [facility] [place] [address] JENI MORENO DIRECTOR: Siri MUNOZIA NUMBER [id number] CAP ACCREDITATION N O. [id number] COMPREHENSIVE METABOLIC [id number] 00:00:00 Test Item Value Reference Range Interpretation Comments GLUCOSE (test code = 2217) 126 MG/DL BUN (test code = 8) 12 MG/DL CREATININE (test code = 2214) 1.24 MG/DL eGFR (2020 CKD-EPI) (test code 53 ML/MIN/1.73 = 31621) CALC BUN/CREAT (test code = 10 RATIO 2235) SODIUM (test code = 2231) 144 MEQ/L POTASSIUM (test code = 2228) 4.0 MEQ/L CHLORIDE (test code = 2215) 110 MEQ/L CARBON DIOXIDE (test code = 18 MEQ/L 2205) CALCIUM (test code = 2209) 9.3 MG/DL PROTEIN, TOTAL (test code = 6.7 G/DL 2228) ALBUMIN (test code = 2201) 4.3 G/DL CALC GLOBULIN (test code = 2.4 G/DL 2240) CALC A/G RATIO (test code = 1.8 RATIO 2234) BILIRUBIN, TOTAL (test code = 0.3 MG/DL 2206) ALKALINE PHOSPHATASE (test 77 U/L code = 2204) AST (test code = 2218) 16 U/L ALT (test code = 2219) 15 U/L COMPREHENSIVE METABOLIC [id number] 00:00:00 Test Item Value Reference Range Interpretation Comments GLUCOSE (test code = 2217) 126 MG/DL BUN (test code = 2208) 12 MG/DL CREATININE (test code = 2214) 1.24 MG/DL eGFR (2020 CKD-EPI) (test code 53 ML/MIN/1.73 = 71236) CALC BUN/CREAT (test code = 10 RATIO 2235) SODIUM (test code = 2231) 144 MEQ/L POTASSIUM (test code = 2228) 4.0 MEQ/L CHLORIDE (test code = 2215) 110 MEQ/L CARBON DIOXIDE (test code = 18 MEQ/L 2205) CALCIUM (test code = 2209) 9.3 MG/DL PROTEIN, TOTAL (test code = 6.7 G/DL 2228) ALBUMIN (test code = 2201) 4.3 G/DL CALC GLOBULIN (test code = 2.4 G/DL 2240) CALC A/G RATIO (test code = 1.8 RATIO 2234) BILIRUBIN, TOTAL (test code = 0.3 MG/DL 2206) ALKALINE PHOSPHATASE (test 77 U/L code = 2204) AST (test code = 2218) 16 U/L ALT (test code = 2219) 15 U/L LIPID [id number] 00:00:00 Test Item Value Reference Range Interpretation Comments CHOLESTEROL (test code = 2210) 182 MG/DL TRIGLYCERIDES (test code = 2232) 82 MG/DL HDL CHOLESTEROL (test code = 2220) 50 MG/DL CALC LDL CHOL (test code = 2237) 114 MG/DL RISK RATIO LDL/HDL (test code = 2.28 RATIO 2238) LIPID [id number] 00:00:00 Test Item Value Reference Range Interpretation Comments CHOLESTEROL (test code = 2210) 182 MG/DL TRIGLYCERIDES (test code = 2232) 82 MG/DL HDL CHOLESTEROL (test code = 2220) 50 MG/DL CALC LDL CHOL (test code = 2237) 114 MG/DL RISK RATIO LDL/HDL (test code = 2.28 RATIO 2238) HEMOGLOBIN [id number] 00:00:00 Test Item Value Reference Range Interpretation Comments HEMOGLOBIN A1c (test code = 97663) 6.4 % HEMOGLOBIN [id number] 00:00:00 Test Item Value Reference Range Interpretation Comments HEMOGLOBIN A1c (test code = 27169) 6.4 % HEMOGLOBIN [id number] 00:00:00 Test Item Value Reference Range Interpretation Comments HEMOGLOBIN A1c (test code = 91303) 6.4 % C-ARM<1 HR W IMAGES*WW*2022-08-17 13:28:04 [facility] 1970 Sex: FFLUOROSCOPYCLINICAL HISTORY: Surgical procedure Comments: Intraoperative fluoroscopy services were provided. A radiologist was not present for the procedure. Selected images demonstrate bilateral needle placement in the lower lumbar spine. Total fluoroscopy time: 3.8 seconds. Image count: 2IMPRESSION: Fluoroscopy services provided. Please see separate operative report for detailed findings.Location: [id number] signed by: Dane Ann MD 08/17/2022 1:28 PM WEB PRODUCTION DESIGNER [id number] URINE MONOCLONAL *WW*2022-08-17 13:05:00 Test Item Value Reference Range Interpretation Comments PREG UR (test code = PGU) NEGATIVE NEGATIVE [id number] 20:14:57 Test Item Value Reference Range Interpretation Comments MAGNESIUM (test code = 7615502342) 1.7 mg/dL 1.7-2.4 Lab Interpretation (test code = Normal 80506-8) [facility] ResourcesTransthoracic echo (TTE)2022-07-26 18:53:16 Test Item Value Reference Range Interpretation Comments Height (test code = in 5035554617) Weight (test code = lbs 2143921252) Systolic BP (test mmHg code = 2207640105) Diastolic BP (test mmHg code = 9020954981) Heart Rate (test code bpm = 4857219812) BSA (test code = 2.00 m2 0636174560) Radiology Study observation (narrative) (test code = 23838-5) LUCILLE (test code = LUCILLE) ?Left?Ventricle: Left ventricle size is normal. Normal wall thickness. Normal wall motion. Hyperdynamic systolic function with a visually estimated EF of greater than 65%. Mild LVOT obstruction at rest, peak PG is 16 mmHg at rest. LVOT pressure gradient increases with Valsalva, peak PG is 51 mmHg with Valsalva. No BHUMIKA. ?Right?Ventricle: Right ventricle size is normal. Normal systolic function. ?Aortic?Valve: Aortic valve opens well. No evidence of aortic stenosis. Left VentricleLeft ventricle size is normal. Normal wall thickness. Normal wall motion. Hyperdynamic systolic function with a visually estimated EF of greater than 65%. Mild LVOT obstruction at rest, peak PG is 16 mmHg at rest. LVOT pressure gradient increases with Valsalva, peak PG is 51 mmHg with Valsalva. No BHUMIKA.Right VentricleRight ventricle size is normal. Normal systolic function.Aortic ValveAortic valve opens well. No evidence of aortic stenosis.Study DetailsStudy quality was adequate. A limited echocardiogram was performed using 2D. [facility] [id number] 03:58:31 Test Item Value Reference Range Interpretation Comments NT-proBNP (test code 580 pg/mL See_Comment H [Autom ated = 6312876153) message] The system which generated this result transmitted reference range : <=125. The reference range was not used to interpret this result as normal/abnormal . LUCILLE (test code = LUCILLE) Biotin has been reported to cause a negative bias, interpret results relative to patient's use of biotin. Lab Interpretation Abnormal (test code = 07180-1) [facility] ResourcesTROPONIN [id number] 03:21:06 Test Item Value Reference Interpretation Comments Range TROPONIN I (test 0.013 ng/mL See_Comment [Automated code = 5253938192) message] The system which generated this result [...] biotin. Lab Interpretation Normal (test code = 42309-6) [facility] ResourcesPREGNANCY TEST, [id number] 03:20:56 Test Item Value Reference Range Interpretation Comments PREG SERUM (test code Negative = 9168197129) LUCILLE (test code = LUCILLE) Less than 10 IU/L. ?If low titer or ectopic is suspected, resubmit specimen in 48-72 hours. [facility]. METABOLIC PANEL ([id number])2022-07-26 03:09:22 Test Item Value Reference Range Interpretation Comments NA (test code = 137 mmol/L 135-145 6399811828) K (test code = 4.5 mmol/L 3.5-5.0 4904577045) CL (test code = 106 mmol/L 98-108 5357421474) CO2 TOTAL (test code = 21 mmol/L 23-31 L 2527044541) AGAP (test code = 2-16 5679966969) BUN (test code = 19 mg/dL 7-23 8605053876) GLUCOSE (test code = 154 mg/dL 70-110 H 8497911122) CREATININE (test code = 0.97 mg/dL 0.50-1.04 6079365273) TOTAL BILI (test code = 0.3 mg/dL 0.1-1.6 1922243318) CALCIUM (test code = 9.6 mg/dL 8.6-10.6 2346586999) T PROTEIN (test code = 6.8 g/dL 6.3-8.2 5195588272) ALBUMIN (test code = 4.1 g/dL 3.5-5.0 0131248417) ALK PHOS (test code = 144 U/L 34-122 H 9984058992) ALTv (test code = 41 U/L 5-35 H 1742-6) AST(SGOT) (test code = 24 U/L 13-40 4904200629) eGFR (test code = mL/min/1.73m2 3108509046) LUCILLE (test code = LUCILLE) Association of [...] tests). Lab Interpretation Abnormal (test code = 25669-3) [facility] ResourcesD-[id number] 03:06:05 Test Item Value Reference Interpretation Comments Range D-DIMER (test code = See_Comment H [Autom ated 6834869659) message] The system which generated this result [...] diagnosis. Lab Interpretation Abnormal (test code = 53947-5) [facility] WITH [id number] 02:34:21 Test Item Value Reference Range Interpretation Comments WBC (test code = See_Comment H [Automated 4090-2) message] The sy stem which generated this result transmitted reference range : 4.30 - 11.10 10*3/?L. The reference range was not used to interpret this result as normal/abnormal . RBC (test code = See_Comment [Automated 927-8) message] The sy stem which generated this result transmitted reference range : 3.93 - 5.25 10*6/?L. The reference range was not used to interpret this result as normal/abnormal . HGB (test code = 12.1 g/dL 11.6-15.0 718-7) HCT (test code = 37.6 % 35.7-45.2 4544-3) MCV (test code = 79.8 fL 80.6-95.5 L 787-2) MCH (test code = 25.7 pg 25.9-32.8 L 785-6) MCHC (test code = 32.2 g/dL 31.6-35.1 786-4) RDW-SD (test code = 48.4 fL 39.0-49.9 66690-9) RDW-CV (test code = 16.6 % 12.0-15.5 H 788-0) PLT (test code = See_Comment [Automated 777-3) message] The sy stem which generated this result transmitted reference range : 166 - 358 10*3/ ?L. The reference r nicholas was not used to interpret this result as normal/abnormal . MPV (test code = 10.4 fL 9.5-12.9 10026-4) NRBC/100 WBC (test See_Comment [Automat ed code = 3633038825) message] The system which generated this result transmitted reference range : 0.0 - 10.0 /100 WBCs. The refer ence range was not u sed to interpret th is result as normal/abnormal . NRBC x10^3 (test code See_Comment [Auto mated = 1725912806) message] The s ystem which generated this result transmitted reference range : 10*3/?L. The reference range was not used to interpret this result as normal/abnormal . GRAN MAT (NEUT) % 85.4 % (test code = 770-8) IMM GRAN % (test code 2.00 % = 5324588070) LYMPH % (test code = 9.9 % 736-9) MONO % (test code = 1.9 % 5905-5) EOS % (test code = 0.3 % 713-8) BASO % (test code = 0.5 % 706-2) GRAN MAT x10^3(ANC) 9.84 10*3/uL 1.88-7.09 H (test code = 7190585318) IMM GRAN x10^3 (test 0.23 10*3/uL 0.00-0.06 H code = 8455206905) LYMPH x10^3 (test code 1.14 10*3/uL 1.32-3.29 L = 731-0) MONO x10^3 (test code 0.22 10*3/uL 0.33-0.92 L = 742-7) EOS x10^3 (test code = 0.03 10*3/uL 0.03-0.39 711-2) BASO x10^3 (test code 0.06 10*3/uL 0.01-0.07 = 704-7) Lab Interpretation Abnormal (test code = 38373-2) [facility] ResourcesPOCT [id number] 02:25:00 Test Item Value Reference Range Interpretation Comments POCT PREG (test code = 1605) Negative On board controls acceptable with Present C Line (test code = 3574) POCT PREG LOT # (test code = 3575) [id number] POCT PREG TEST DATE (test 12/02/2023 code = 3576) Lab Interpretation (test code = Normal 38934-2) [facility] ResourcesPREGNANCY URINE MONOCLONAL *WW*2022-07-20 14:10:00 Test Item Value Reference Range Interpretation Comments PREG UR (test code = PGU) NEGATIVE NEGATIVE BLOOD [id number] 07:22:00 Test Item Value Reference Range Interpretation Comments Culture Observations POSITIVE BLOOD A (test code = COB1) CULTURE Culture Observations 1 OF 2 BOTTLES (test code = COB2) Isolate 1 (test code = Diphtheroids ISO1) Troponin [id number] 11:14:56 Test Item Value Reference Interpretation Comments Range TROPONIN I (test 0.035 ng/mL See_Comment H Hemolyzed code = 0742643560) specimen [Automated message] The system which generated [...] biotin. Lab Interpretation Abnormal (test code = 38702-0) [facility] ResourcesDIRECT STREP GROUP [id number] 10:18:00 Test Item Value Reference Range Interpretation Comments Culture Observations NO BETA HEMOLYTIC (test code = COB1) STREPTOCOCCUS ISOLATED Direct Exam (test code NEGATIVE FOR STREP A = DE3) ANTIGEN BLOOD [id number] 07:35:00 Test Item Value Reference Interpretation Comments Range Culture POSITIVE Observations (test BLOOD code = COB1) CULTURE Culture 1 OF 4 BOTTLES Observations (test code = COB2) Isolate 1 (test Coagulase negative POSSIB LE code = ISO1) staphylococcus CONTAMINANTIF SUSCEPTIBILITY NEEDED, PLEASE NOTIFY MICRO WI THIN [address] CHEST W/O [id number] 21:52:03 [facility] : 1970 Sex: FEXAMINATION:CT [...] Fidencio Thurston MD 06/23/2022 9:52 PM CDT [id number] 2022-06-23 21:26:00 Test Item Value Reference Range Interpretation Comments PROCALCITONIN (test 0.13 ng/mL 0.00-0.24 code = PCT) PROCALCITONIN REF (test code = PCTH) PROCALCITONIN REFERENCE RANGE < 0.25 ng/mL suggests viral infection on day of admission 0.25-0.5 ng/mL young zone >0.5 ng/mL is highly suggestive of bacterial infection BRAIN NATRIURETIC [id number] 21:04:00 Test Item Value Reference Range Interpretation Comments BNP (test code = 24 pg/mL See_Comment [Automated message] The A74) system which ge nerated this result tra nsmitted reference range : <=100. The reference r nicholas was not used to int erpret this result as earnest l/abnormal. DIRECT INFLUENZA A AND B [id number] 21:00:00 Test Item Value Reference Range Interpretation [...] the FDA and the [employer] of the [place] (CAP) are more stringent than those required for this test. Therefore, the result should be interpreted with caution and close attention to other clinical and epidemiological data COMPREHENSIVE METABOLIC [id number] 20:46:00 Test Item Value Reference Range Interpretation [...] ANG) BUN (test code = 15 mg/dL 9- 05D) CREATININE (test 0.9 mg/dL 0.6-1.0 code = 03E) GFR (test code = 74 See_Comment L [Automated GFR) mL/min/1.73m\\S\\2 message] Th e system which generated this result transmit britney reference range : >=90. The reference range was not used to interpret this result as normal/abnormal . GFR 86 See_Comment L [Automated MALDIVIAN (test mL/min/1.73m\\S\\2 message] The code = GFRAA) [...] code = 68 IU/L 10-49 H 31A) [id number] 20:46:00 Test Item Value Reference Range Interpretation Comments MAGNESIUM (test code = 48A) 2.1 mg/dL 1.6-2.6 TROPONIN [id number] 20:46:00 Test Item Value Reference Range Interpretation Comments TROPONIN I (test code = A84) 8.36 pg/mL 0.00-45.20 CBC WITH [id number] 20:44:00 Test Item Value Reference Range Interpretation [...] 1+ NONE A MICRO) PRO TIME AND [id number] 20:43:00 Test Item Value Reference Range Interpretation [...] or LMW Heparin. Order Code is ANTI-XA [id number] 20:43:00 Test Item Value Reference Range Interpretation Comments D-DIMER (test code = 286 ng/mL D-DU 0-234 H DDI) D-DIMER COMMENT (test *Level to rule out code = DDCOM) DVT or PE: <235 ng/mL D-DU* SERUM [id number] 20:40:00 Test Item Value Reference Range Interpretation Comments PREG SRM (test code = PGS) NEGATIVE NEGATIVE LACTIC [id number] 20:17:00 Test Item Value Reference Range Interpretation Comments LACTIC ACD (test code = LA) 0.9 mmol/L 0.4-2.0 XR CHEST 1 VIEW [id number] 20:05:47 [facility] : 1970 Sex: FLocation code: H5 Chest 1 viewIndication: Dyspnea.Comparison: 06/21/2022Findings:The heart and mediastinum are not remarkable.Costophrenic angles are clear.Elevation of the right hemidiaphragm and small right basilar atelectasis.ACDF lower cervical spineImpression:1. No change. Elevation the right hemidiaphragm and small right basilar atelectasisElectronically signed by: Bucky Keith MD 06/23/2022 8:05 PM CDT PDVKP *WW*2022-06-22 05:27:00 Test Item Value Reference Range [...] H CT CHEST W/ CONTRAST *WW*2022-06-21 22:47:01 [facility] : 1970 Sex: FEXAMINATION:CT C HEST W/ CONTRAST *WW*CLINICAL INDICATION:Female, 51 years old with DyspneaTECHNIQUE: Axial post-contrast contiguous images were obtained through the chest followed by coronal and sagittal multiplanar reformations.One or more of the following dose reduction techniques were used: Automated exposure contr ol, adjustment of the mA and/or kV according to patient size, and/or iterative reconstruction. COMPARISON: NoneFINDINGS:Chest:Medical Devices: None.Lymph Nodes: There are no pathologically enlarged supraclavicular, mediastinal, or axillary lymph nodes.Lungs/Airways/Pleura: Trachea and main bronchi arepatent. There is an infiltrate identified in the right lower lobe suspicious for pneumonia. No pneumothorax is identified. No pulmonary nodules or masses are identified. No pleural effusion is present.Heart/Vessels: Heart is normal in size. No coronary [...] within normal limits.Bones: No acute abnormality or suspiciousbony lesion.IMPRESSION:1. Right lower lobe pneumonia.Electronically signed by: Fidencio Thurston MD 06/21/2022 10:47 PM CDT MB FRACTION *WW*2022-06-21 22:00:00 Test Item Value Reference Range Interpretation Comments CKMB (test code = 3.4 ng/mL See_Comment [Automate d message] The A49) system which ge nerated this result tra [...] normal/abnormal . GFR 76 See_Comment L [Automated MALDIVIAN (test mL/min/1.73m\\S\\2 message] The code = GFRAA) [...] the FDA and the [employer] of the [place] [employer] (CAP) are more stringent than those required for this test. Therefore, the result should be interpreted with caution and close attention to other clinical and epidemiological data DIRECT INFLUENZA A AND B [id number] 20:50:00 Test Item Value Reference Range Interpretation Comments Direct Exam (test PRESUMPTIVE NEGATIVE FOR code = DE3) THE PRESENCE OF INFLUENZA ANTIGEN XR CHEST 1 VIEW PORTABLE *WW*2022-06-21 20:39:36 [facility] : 1970 Sex: [...] Fidencio Thurston MD 06/21/2022 8:39 PM CDT [id number] NATRIURETIC PEPTIDE *WW* 2022-06-21 20:38:00 Test Item [...] NEGATIVE NEGATIVE C-ARM<1 HR W IMAGES*WW*2022-06-15 16:54:53 [facility] : 1970 Sex: FFluoroscopyLocation Code: [id number] HISTORY: Surgical procedureComments: Fluoroscopy was provided during [...] NEGATIVE NEGATIVE C-ARM<1 HR W IMAGES*WW*2022-05-12 08:26:58 [facility] : 1970 Sex: [...] by:Alexey Ott MD 05/12/2022 8:26 AM CDT [id number] URINE MONOCLONAL *WW*2022-05-11 12:51:00 Test Item Value Reference Range Interpretation Comments PREG UR (test code = PGU) NEGATIVE NEGATIVE C-ARM<1 HR W IMAGES*WW*2022-04-06 16:03:45 [facility] : 1970 Sex: FFluoroscopyLocation Code: [id number] HISTORY: Neck painComments: Fluoroscopy was provided during bilateral medial branch block. Approximately fluoroscopy time was 5.0 seconds. 2 fluoroscopic spot images were taken.IMPRESSION: Fluoroscopy services provided. Please see operative report for full details.Electronically signed by: Iglesia Garvey MD 04/06/2022 4:03 PM CDT [id number] URINE MONOCLONAL *WW*2022-04-06 12:39:00 Test Item Value Reference Range Interpretation Comments PREG UR (test code = PGU) NEGATIVE NEGATIVE Basic Metabolic Panel (NA, K, CL, CO2, GLUCOSE, BUN, CREATININE, CA)2022-02-26 09:48:31 Test Item Value Reference Range Interpretation Comments NA (test code = 143 mmol/L 135-145 2023474050) K (test code = 3.5 mmol/L 3.5-5.0 8816337596) CL (test code = 114 mmol/L 98-108 H 8886216220) CO2 TOTAL (test code = 24 mmol/L 23-31 6281983435) AGAP (test code = 2-16 8312369135) BUN (test code = 9 mg/dL 7-23 8412393584) GLUCOSE (test code = 96 mg/dL 70-110 9655297585) CREATININE (test code = 0.92 mg/dL 0.50-1.04 8030876130) CALCIUM (test code = 8.1 mg/dL 8.6-10.6 L 6153781048) eGFR (test code = mL/min/1.73m2 9724794071) LUCILLE (test code = LUCILLE) Association of [...] tests). Lab Interpretation Abnormal (test code = 71188-8) [facility] with [id number] 09:36:32 Test Item Value Reference Range Interpretation [...] RDW-SD (test code = 46.8 fL 39.0-49.9 52162-2) RDW-CV (test code = 16.7 % 12.0-15.5 H 788-0) PLT (test code = See_Comment [Automated 777-3) message] The sy stem which generated this result transmitted reference range : 166 - 358 10*3/ ?L. The reference r nicholas was not used to interpret this result as normal/abnormal . MPV (test code = 10.8 fL 9.5-12.9 32835-5) NRBC/100 WBC (test See_Comment [Automat ed code = 3878100832) message] The system which generated this result transmitted reference range : 0.0 - 10.0 /100 WBCs. The refer ence range was not u sed to interpret th is result as normal/abnormal . NRBC x10^3 (test code <0.01 See_Comment [Auto mated = 1016034556) message] The s ystem which generated this result transmitted reference range : 10*3/?L. The reference range was not used to interpret this result as normal/abnormal . GRAN MAT (NEUT) % 54.4 % (test code = 770-8) IMM GRAN % (test code 0.20 % = 0912028782) LYMPH % (test code = 31.5 % 736-9) MONO % (test code = 8.7 % 5905-5) EOS % (test code = 3.2 % 713-8) BASO % (test code = 2.0 % 706-2) GRAN MAT x10^3(ANC) 2.69 10*3/uL 1.88-7.09 (test code = 8024468407) IMM GRAN x10^3 (test <0.03 0.00-0.06 code = 0404987085) LYMPH x10^3 (test code 1.56 10*3/uL 1.32-3.29 = 731-0) MONO x10^3 (test code 0.43 10*3/uL 0.33-0.92 = 742-7) EOS x10^3 (test code = 0.16 10*3/uL 0.03-0.39 711-2) BASO x10^3 (test code 0.10 10*3/uL 0.01-0.07 H = 704-7) Lab Interpretation Abnormal (test code = 39866-2) [id number] 04:00:15 Test Item Value Reference Interpretation Comments Range TROPONIN I (test 0.004 ng/mL See_Comment [Automated code = 2952358717) message] The system which generated this result [...] biotin. Lab Interpretation Normal (test code = 89633-2) [facility]AL [id number] 04:00:15 Test Item Value Reference Range Interpretation Comments NT-proBNP (test code 42 pg/mL See_Comment [Autom ated = 2604913414) message] The system which generated this result transmitted reference range : <=125. The reference range was not used to interpret this result as normal/abnormal . LUCILLE (test code = LUCILLE) Biotin has been reported to cause a negative bias, interpret results relative to patient's use of biotin. Lab Interpretation Normal (test code = 27354-2) [facility] ResourcesCOMP. METABOLIC PANEL ([id number])2022-02-26 03:48:34 Test Item Value Reference Range Interpretation Comments NA (test code = 142 mmol/L 135-145 7559156845) K (test code = 3.6 mmol/L 3.5-5.0 Slight 7037794819) hemolysis CL (test code = 109 mmol/L 98-108 H 5984120807) CO2 TOTAL (test code 26 mmol/L 23-31 = 0943183869) AGAP (test code = 2-16 7118093238) BUN (test code = 10 mg/dL 7-23 Slight 2325925178) hemolysis GLUCOSE (test code = 84 mg/dL 70-110 3030610007) CREATININE (test code 0.99 mg/dL 0.50-1.04 = 1165697739) TOTAL BILI (test code 0.4 mg/dL 0.1-1.1 = 8687634962) CALCIUM (test code = 8.9 mg/dL 8.6-10.6 4401989328) T PROTEIN (test code 6.5 g/dL 6.3-8.2 = 5030615333) ALBUMIN (test code = 4.0 g/dL 3.5-5.0 4528728784) ALK PHOS (test code = 71 U/L 34-122 Slight 4707763613) hemolysis ALTv (test code = 18 U/L 5-35 1742-6) AST(SGOT) (test code 25 U/L 13-40 Slight = 6768437295) hemolysis eGFR (test code = mL/min/1.73m2 3455277024) LUCILLE (test code = LUCILLE) Association of [...] tests). Lab Interpretation Abnormal (test code = 22806-2) [facility] ResourcesLIPASE2022-06-26 03:48:34 Test Item Value Reference Range Interpretation Comments LIPASE (test code = 4253692017) 166 U/L 0-220 Lab Interpretation (test code = Normal 79066-9) [facility] ResourcesCB WITH [id number] 03:34:33 Test Item Value Reference Range Interpretation [...] RDW-SD (test code = 47.2 fL 39.0-49.9 09765-4) RDW-CV (test code = 16.8 % 12.0-15.5 H 788-0) PLT (test code = See_Comment [Automated 777-3) message] The sy stem which generated this result transmitted reference range : 166 - 358 10*3/ ?L. The reference r nicholas was not used to interpret this result as normal/abnormal . MPV (test code = 10.3 fL 9.5-12.9 01108-2) NRBC/100 WBC (test See_Comment [Automat ed code = 7136135257) message] The system which generated this result transmitted reference range : 0.0 - 10.0 /100 WBCs. The refer ence range was not u sed to interpret th is result as normal/abnormal . NRBC x10^3 (test code <0.01 See_Comment [Auto mated = 5599012985) message] The s ystem which generated this result transmitted reference range : 10*3/?L. The reference range was not used to interpret this result as normal/abnormal . GRAN MAT (NEUT) % 51.0 % (test code = 770-8) IMM GRAN % (test code 0.20 % = 1932854838) LYMPH % (test code = 31.6 % 736-9) MONO % (test code = 10.7 % 5905-5) EOS % (test code = 4.3 % 713-8) BASO % (test code = 2.2 % 706-2) GRAN MAT x10^3(ANC) 2.59 10*3/uL 1.88-7.09 (test code = 4302774546) IMM GRAN x10^3 (test <0.03 0.00-0.06 code = 4791411528) LYMPH x10^3 (test code 1.60 10*3/uL 1.32-3.29 = 731-0) MONO x10^3 (test code 0.54 10*3/uL 0.33-0.92 = 742-7) EOS x10^3 (test code = 0.22 10*3/uL 0.03-0.39 711-2) BASO x10^3 (test code 0.11 10*3/uL 0.01-0.07 H = 704-7) Lab Interpretation Abnormal (test code = 55730-5) [facility] [id number] 06:03:26 Test Item Value Reference Interpretation Comments Range TROPONIN I (test 0.003 ng/mL See_Comment [Automated code = 7925067503) message] The system which generated this result [...] biotin. Lab Interpretation Normal (test code = 54312-1) [facility] [id number] 03:56:22 Test Item Value Reference Interpretation Comments Range TROPONIN I (test 0.003 ng/mL See_Comment [Automated code = 3330493262) message] The system which generated this result [...] biotin. Lab Interpretation Normal (test code = 35938-4) [facility] ResourcesN[facility]AL [id number] 03:53:00 Test Item Value Reference Range Interpretation Comments NT-proBNP (test code 143 pg/mL See_Comment H [Autom ated = 7514140268) message] The system which generated this result transmitted reference range : <=125. The reference range was not used to interpret this result as normal/abnormal . LUCILLE (test code = LUCILLE) Biotin has been reported to cause a negative bias, interpret results relative to patient's use of biotin. Lab Interpretation Abnormal (test code = 68412-2) [facility] ResourcesCOMP. METABOLIC PANEL ([id number])2022-02-23 03:45:59 Test Item Value Reference Range Interpretation Comments NA (test code = 140 mmol/L 135-145 4897894708) K (test code = 4.0 mmol/L 3.5-5.0 9554920642) CL (test code = 110 mmol/L 98-108 H 3931283741) CO2 TOTAL (test code = 17 mmol/L 23-31 L 2700305704) AGAP (test code = 2-16 7781855342) BUN (test code = 14 mg/dL 7-23 3324788978) GLUCOSE (test code = 105 mg/dL 70-110 4428311305) CREATININE (test code = 1.03 mg/dL 0.50-1.04 9675995425) TOTAL BILI (test code = 0.3 mg/dL 0.1-1.5 6259859410) CALCIUM (test code = 8.9 mg/dL 8.6-10.6 6504043684) T PROTEIN (test code = 6.1 g/dL 6.3-8.2 L 8174081714) ALBUMIN (test code = 3.8 g/dL 3.5-5.0 0331220922) ALK PHOS (test code = 91 U/L 34-122 7242794664) ALTv (test code = 19 U/L 5-35 1742-6) AST(SGOT) (test code = 21 U/L 13-40 9232462549) eGFR (test code = mL/min/1.73m2 1916483304) LUCILLE (test code = LUCILLE) Association of [...] tests). Lab Interpretation Abnormal (test code = 08969-2) [facility] WITH [id number] 03:23:19 Test Item Value Reference Range Interpretation [...] RDW-SD (test code = 45.7 fL 39.0-49.9 19223-9) RDW-CV (test code = 16.6 % 12.0-15.5 H 788-0) PLT (test code = See_Comment [Automated 777-3) message] The sy stem which generated this result transmitted reference range : 166 - 358 10*3/ ?L. The reference r nicholas was not used to interpret this result as normal/abnormal . MPV (test code = 10.9 fL 9.5-12.9 26762-1) NRBC/100 WBC (test See_Comment [Automat ed code = 7609544872) message] The system which generated this result transmitted reference range : 0.0 - 10.0 /100 WBCs. The refer ence range was not u sed to interpret th is result as normal/abnormal . NRBC x10^3 (test code <0.01 See_Comment [Auto mated = 0212235741) message] The s ystem which generated this result transmitted reference range : 10*3/?L. The reference range was not used to interpret this result as normal/abnormal . GRAN MAT (NEUT) % 53.8 % (test code = 770-8) IMM GRAN % (test code 0.20 % = 6127234652) LYMPH % (test code = 34.0 % 736-9) MONO % (test code = 7.9 % 5905-5) EOS % (test code = 2.6 % 713-8) BASO % (test code = 1.5 % 706-2) GRAN MAT x10^3(ANC) 3.25 10*3/uL 1.88-7.09 (test code = 9366658429) IMM GRAN x10^3 (test <0.03 0.00-0.06 code = 1775655667) LYMPH x10^3 (test code 2.06 10*3/uL 1.32-3.29 = 731-0) MONO x10^3 (test code 0.48 10*3/uL 0.33-0.92 = 742-7) EOS x10^3 (test code = 0.16 10*3/uL 0.03-0.39 711-2) BASO x10^3 (test code 0.09 10*3/uL 0.01-0.07 H = 704-7) Lab Interpretation Abnormal (test code = 79419-2) [facility], THIRD [id number] 09:21:37 Test Item Value Reference Range Interpretation Comments TSH, THIRD TEST NOT 0.400-4.100 TESTING CANNOT BE GENERATION (test PERFORMED UIU/ML PERFORM ED DUE TO AN code = 2821) INTERFERING SUBSTANCE. LB GES DELETED. [id number] 09:21:37 Test Item Value Reference Range Interpretation [...] . . . . . NG/ML 58.70-214.00 [id number] 09:21:37 Test Item Value Reference Range Interpretation Comments ESTRADIOL (test TEST NOT SEE BELOW TESTING CAN NOT BE code = 9422) PERFORMED PG/ML PERFORMED DU E TO AN INTERFERING SUBSTANCE. LB GES DELETED. UNLESS OTHERWISE INDIC ATED, ALL TESTING PERFORMED [facility], [facility]. [address] [place] [id number] [place] [address] DIRECTOR: SADIQ VANEGAS M.D. [place] NUMBER [id number] [place]. [id number] COMPREHENSIVE METABOLIC [id number] 09:21:22 Test Item Value Reference Range Interpretation [...] ) PERFORMED ML/MIN/1.73 CALC BUN/CREAT TEST NOT 628 (test code = 2234) PERFORMED RATIO SODIUM (test code = TEST NOT 308-231 6146) PERFORMED MEQ/L POTASSIUM (test TEST NOT 3.5-5.4 [...] code = TEST NOT 2218) PERFORMED U/L [id number] 00:00:00 Test Item Value Reference Range Interpretation Comments TSH, THIRD GENERATION TEST NOT PERFORMED (test code = 282) UIU/ML [id number] 00:00:00 Test Item Value Reference Range Interpretation Comments TSH, THIRD GENERATION TEST NOT PERFORMED (test code = 282) UIU/ML [id number] 00:00:00 Test Item Value Reference Range Interpretation Comments TSH, THIRD GENERATION TEST NOT PERFORMED (test code = 282) UIU/ML COMPREHENSIVE METABOLIC [id number] 00:00:00 Test Item Value Reference Range Interpretation [...] RATIO (test TEST NOT PERFORMED code = 223) RATIO BILIRUBIN, TOTAL (test TEST NOT PERFORMED code = 2207) MG/DL ALKALINE PHOSPHATASE TEST NOT PERFORMED (test code = 2203) U/L AST (test code = 2218) TEST NOT PERFORMED U/L ALT (test code = 2219) TEST NOT PERFORMED U/L COMPREHENSIVE METABOLIC [id number] 00:00:00 Test Item Value Reference Range Interpretation [...] code = 2219) TEST NOT PERFORMED U/L [id number] 00:00:00 Test Item Value Reference Range Interpretation Comments PROGESTERONE (test code TEST NOT PERFORMED = 2790) NG/ML [id number] 00:00:00 Test Item Value Reference Range Interpretation Comments PROGESTERONE (test code TEST NOT PERFORMED = 2790) NG/ML [id number] 00:00:00 Test Item Value Reference Range Interpretation Comments ESTRADIOL (test code = TEST NOT PERFORMED 2505) PG/ML [id number] 00:00:00 Test Item Value Reference Range Interpretation Comments ESTRADIOL (test code = TEST NOT PERFORMED 2505) PG/ML [id number] 00:00:00 Test Item Value Reference Range Interpretation Comments ESTRADIOL (test code = TEST NOT PERFORMED 2505) PG/ML [id number] 00:00:00 Test Item Value Reference Range Interpretation Comments TSH, THIRD GENERATION TEST NOT PERFORMED (test code = 2821) UIU/ML [id number] 00:00:00 Test Item Value Reference Range Interpretation Comments TSH, THIRD GENERATION TEST NOT PERFORMED (test code = 2821) UIU/ML [id number] 00:00:00 Test Item Value Reference Range Interpretation Comments TSH, THIRD GENERATION TEST NOT PERFORMED (test code = 2821) UIU/ML COMPREHENSIVE METABOLIC [id number] 00:00:00 Test Item Value Reference Range Interpretation [...] 2218) TEST NOT PERFORMED U/L COMPREHENSIVE METABOLIC [id number] 00:00:00 Test Item Value Reference Range Interpretation [...] GLOBULIN (test code TEST NOT PERFORMED = 0) G/DL CALC A/G RATIO (test TEST NOT PERFORMED code = 2233) RATIO BILIRUBIN, TOTAL (test TEST NOT PERFORMED code = 2206) MG/DL ALKALINE PHOSPHATASE TEST NOT PERFORMED (test code = 2203) U/L AST (test code = 2217) TEST NOT PERFORMED U/L ALT (test code = 2218) TEST NOT PERFORMED U/L [id number] 00:00:00 Test Item Value Reference Range Interpretation Comments PROGESTERONE (test code TEST NOT PERFORMED = 2790) NG/ML [id number] 00:00:00 Test Item Value Reference Range Interpretation Comments PROGESTERONE (test code TEST NOT PERFORMED = 2790) NG/ML [id number] 00:00:00 Test Item Value Reference Range Interpretation Comments ESTRADIOL (test code = TEST NOT PERFORMED 2505) PG/ML [id number] 00:00:00 Test Item Value Reference Range Interpretation Comments ESTRADIOL (test code = TEST NOT PERFORMED 2505) PG/ML [id number] 00:00:00 Test Item Value Reference Range Interpretation Comments ESTRADIOL (test code = TEST NOT PERFORMED 2505) PG/ML [id number] 00:00:00 Test Item Value Reference Range Interpretation Comments TSH, THIRD GENERATION TEST NOT PERFORMED (test code = 282) UIU/ML [id number] 00:00:00 Test Item Value Reference Range Interpretation Comments TSH, THIRD GENERATION TEST NOT PERFORMED (test code = 2821) UIU/ML [id number] 00:00:00 Test Item Value Reference Range Interpretation Comments TSH, THIRD GENERATION TEST NOT PERFORMED (test code = 2821) UIU/ML [id number] 00:00:00 Test Item Value Reference Range Interpretation Comments TSH, THIRD GENERATION TEST NOT PERFORMED (test code = 2821) UIU/ML [id number] 00:00:00 Test Item Value Reference Range Interpretation Comments TSH, THIRD GENERATION TEST NOT PERFORMED (test code = 2821) UIU/ML [id number] 00:00:00 Test Item Value Reference Range Interpretation Comments TSH, THIRD GENERATION TEST NOT PERFORMED (test code = 2821) UIU/ML COMPREHENSIVE METABOLIC [id number] 00:00:00 Test Item Value Reference Range Interpretation Comments GLUCOSE (test code = TEST NOT PERFORMED 2216) MG/DL BUN (test code = 2207) TEST NOT PERFORMED MG/DL CREATININE (test code = TEST NOT PERFORMED 2213) MG/DL eGFR (2020 CKD-EPI) TEST NOT PERFORMED (test code = 35606) ML/MIN/1.73 CALC BUN/CREAT (test TEST NOT PERFORMED [...] TOTAL (test TEST NOT PERFORMED code = 2207) MG/DL ALKALINE PHOSPHATASE TEST NOT PERFORMED (test code = 220) U/L AST (test code = 2218) TEST NOT PERFORMED U/L ALT (test code = 2219) TEST NOT PERFORMED U/L COMPREHENSIVE METABOLIC [id number] 00:00:00 Test Item Value Reference Range Interpretation Comments GLUCOSE (test code = TEST NOT PERFORMED 2216) MG/DL BUN (test code = 2207) TEST NOT PERFORMED MG/DL CREATININE (test code = TEST NOT PERFORMED 2213) MG/DL eGFR (2020 CKD-EPI) TEST NOT PERFORMED (test code = 35699) ML/MIN/1.73 CALC BUN/CREAT (test TEST NOT PERFORMED [...] 2218) TEST NOT PERFORMED U/L COMPREHENSIVE METABOLIC [id number] 00:00:00 Test Item Value Reference Range Interpretation Comments GLUCOSE (test code = TEST NOT PERFORMED 2216) MG/DL BUN (test code = 2207) TEST NOT PERFORMED MG/DL CREATININE (test code = TEST NOT PERFORMED 2213) MG/DL eGFR (2020 CKD-EPI) TEST NOT PERFORMED (test code = 78080) ML/MIN/1.73 CALC BUN/CREAT (test TEST NOT PERFORMED [...] code = 221) TEST NOT PERFORMED U/L [id number] 00:00:00 Test Item Value Reference Range Interpretation Comments PROGESTERONE (test code TEST NOT PERFORMED = 2790) NG/ML [id number] 00:00:00 Test Item Value Reference Range Interpretation Comments PROGESTERONE (test code TEST NOT PERFORMED = 2790) NG/ML [id number] 00:00:00 Test Item Value Reference Range Interpretation Comments ESTRADIOL (test code = TEST NOT PERFORMED 2505) PG/ML [id number] 00:00:00 Test Item Value Reference Range Interpretation Comments ESTRADIOL (test code = TEST NOT PERFORMED 2505) PG/ML [id number] 00:00:00 Test Item Value Reference Range Interpretation Comments ESTRADIOL (test code = TEST NOT PERFORMED 2505) PG/ML COMPREHENSIVE METABOLIC [id number] 00:00:00 Test Item Value Reference Range Interpretation Comments GLUCOSE (test code = TEST NOT PERFORMED 2216) MG/DL BUN (test code = 2207) TEST NOT PERFORMED MG/DL CREATININE (test code = TEST NOT PERFORMED 2213) MG/DL eGFR (2020 CKD-EPI) TEST NOT PERFORMED (test code = 72454) ML/MIN/1.73 CALC BUN/CREAT (test TEST NOT PERFORMED [...] RATIO (test TEST NOT PERFORMED code = 223) RATIO BILIRUBIN, TOTAL (test TEST NOT PERFORMED code = 2206) MG/DL ALKALINE PHOSPHATASE TEST NOT PERFORMED (test code = 2203) U/L AST (test code = 2218) TEST NOT PERFORMED U/L ALT (test code = 2219) TEST NOT PERFORMED U/L [id number] 00:00:00 Test Item Value Reference Range Interpretation Comments PROGESTERONE (test code TEST NOT PERFORMED = 2790) NG/ML [id number] 00:00:00 Test Item Value Reference Range Interpretation Comments PROGESTERONE (test code TEST NOT PERFORMED = 2790) NG/ML [id number] 00:00:00 Test Item Value Reference Range Interpretation Comments ESTRADIOL (test code = TEST NOT PERFORMED 2505) PG/ML [id number] 00:00:00 Test Item Value Reference Range Interpretation Comments ESTRADIOL (test code = TEST NOT PERFORMED 2505) PG/ML [id number] 00:00:00 Test Item Value Reference Range Interpretation Comments ESTRADIOL (test code = TEST NOT PERFORMED 2505) PG/ML TROPONIN [id number] 14:05:29 Test Item Value Reference Interpretation Comments Range TROPONIN I (test <0.012 See_Comment [Automated code = 9008683845) message] The system which generated this result [...] biotin. Lab Interpretation Normal (test code = 44878-0) [facility] [id number] 14:02:07 Test Item Value Reference Range Interpretation Comments NT-proBNP (test code 343 pg/mL See_Comment H [Autom ated = 6951772964) message] The system which generated this result transmitted reference range : <=125. The reference range was not used to interpret this result as normal/abnormal . LUCILLE (test code = LUCILLE) Biotin has been reported to cause a negative bias, interpret results relative to patient's use of biotin. Lab Interpretation Abnormal (test code = 86276-3) [facility]. METABOLIC PANEL (14163)2022-01-29 13:53:30 Test Item Value Reference Range Interpretation Comments NA (test code = 146 mmol/L 135-145 H 8322874811) K (test code = 4.2 mmol/L 3.5-5.0 7999620835) CL (test code = 114 mmol/L 98-108 H 1649344239) CO2 TOTAL (test code = 23 mmol/L 23-31 7741961383) AGAP (test code = 2-16 2775137144) BUN (test code = 14 mg/dL 7-23 0467167417) GLUCOSE (test code = 72 mg/dL 70-110 7682156627) CREATININE (test code = 1.08 mg/dL 0.50-1.04 H 7607363132) TOTAL BILI (test code = 0.3 mg/dL 0.1-1.5 4655875998) CALCIUM (test code = 9.1 mg/dL 8.6-10.6 2856176923) T PROTEIN (test code = 6.1 g/dL 6.3-8.2 L 5290202523) ALBUMIN (test code = 3.8 g/dL 3.5-5.0 6364288399) ALK PHOS (test code = 86 U/L 34-122 8368807725) ALTv (test code = 26 U/L 5-35 1742-6) AST(SGOT) (test code = 28 U/L 13-40 1957013218) eGFR (test code = mL/min/1.73m2 2245316276) LUCILLE (test code = LUCILLE) Association of [...] tests). Lab Interpretation Abnormal (test code = 40269-1) [facility] + LACTIC [id number] 13:52:59 Test Item Value Reference Range Interpretation Comments PH (test code = 7.32-7.42 6107057566) PCO2 WYATT (test code = See_Comment [Auto mated 2106429490) message] The sy stem which generated this result transmitted reference range : 41 - 51 mmHg. The reference range was not used to interpret this result as normal/abnormal . PO2 WYATT (test code = See_Comment L [Autom ated 1781457203) message] The sy stem which generated this result transmitted reference range : 25 - 40 mmHg. The reference range was not used to interpret this result as normal/abnormal . HCO3 WYATT (test code = See_Comment [Auto mated 9924839467) message] The sy stem which generated this result transmitted reference range : 24 - 28 mEq/L. The reference range was not used to interpret this result as normal/abnormal . AC VBE(BEAKER) (test mEq/L code = 0668420544) THB WYATT (test code = 11.4 g/dL 12.0-16.0 L 7656770999) %O2HB WYATT (test code = 21.7 % 52.0-63.0 L 7042321500) %COHB WYATT (test code = 0.3 % 0.0-1.5 3804827524) %METHB WYATT (test code = 1.1 % 0.4-1.5 9213102885) VOL%O2 WYATT (test code = 3.5 % 6.0-12.0 L 2127070822) NA (test code = 145 mmol/L 135-145 9807446564) K+ (test code = 4.0 mmol/L 3.5-5.0 4876508637) AC CA IONZ (test code = 5.00 mg/dL 4.50-5.30 6920336852) GLUCOSE (test code = 70 mg/dL 70-110 6780885963) LACTIC ACID (test code 2.81 mmol/L 0.50-2.20 H = 2198758442) Lab Interpretation Abnormal (test code = 51843-6) [facility] WITH [id number] 13:41:47 Test Item Value Reference Range Interpretation Comments WBC (test code = See_Comment [Automated 6690-2) message] The sy stem which generated this result transmitted reference range : 4.30 - 11.10 10*3/?L. The reference range was not used to interpret this result as normal/abnormal . RBC (test code = See_Comment [Automated 759-8) message] The sy stem which generated this [...] RDW-SD (test code = 47.6 fL 39.0-49.9 16850-3) RDW-CV (test code = 15.9 % 12.0-15.5 H 788-0) PLT (test code = See_Comment [Automated 777-3) message] The sy stem which generated this result transmitted reference range : 166 - 358 10*3/ ?L. The reference r nicholas was not used to interpret this result as normal/abnormal . MPV (test code = 10.9 fL 9.5-12.9 00658-6) NRBC/100 WBC (test See_Comment [Automat ed code = 4740987277) message] The system which generated this result transmitted reference range : 0.0 - 10.0 /100 WBCs. The refer ence range was not u sed to interpret th is result as normal/abnormal . NRBC x10^3 (test code <0.01 See_Comment [Auto mated = 9138126004) message] The s ystem which generated this result transmitted reference range : 10*3/?L. The reference range was not used to interpret this result as normal/abnormal . GRAN MAT (NEUT) % 80.7 % (test code = 770-8) IMM GRAN % (test code 0.30 % = 7023701275) LYMPH % (test code = 12.4 % 736-9) MONO % (test code = 4.9 % 5905-5) EOS % (test code = 0.9 % 713-8) BASO % (test code = 0.8 % 706-2) GRAN MAT x10^3(ANC) 6.92 10*3/uL 1.88-7.09 (test code = 9686364908) IMM GRAN x10^3 (test 0.03 10*3/uL 0.00-0.06 code = 3372542288) LYMPH x10^3 (test code 1.06 10*3/uL 1.32-3.29 L = 731-0) MONO x10^3 (test code 0.42 10*3/uL 0.33-0.92 = 742-7) EOS x10^3 (test code = 0.08 10*3/uL 0.03-0.39 711-2) BASO x10^3 (test code 0.07 10*3/uL 0.01-0.07 = 704-7) Lab Interpretation Abnormal (test code = 77900-9) [facility] W/AUTO DIFF WITH [id number] 05:43:21 Test Item Value Reference Range Interpretation [...] RBCS 0.00 K/UL 0.00-0.11 (test code = 42053) HEMOGLOBIN [id number] 05:31:32 Test Item Value Reference Range Interpretation Comments HEMOGLOBIN A1c (test code = 40322) 6.4 % 4.2-5.6 H HEMOGLOBIN [id number] 00:00:00 Test Item Value Reference Range Interpretation Comments HEMOGLOBIN A1c (test code = 47891) 6.4 % HEMOGLOBIN [id number] 00:00:00 Test Item Value Reference Range Interpretation Comments HEMOGLOBIN A1c (test code = 79172) 6.4 % HEMOGLOBIN [id number] 00:00:00 Test Item Value Reference Range Interpretation Comments HEMOGLOBIN A1c (test code = 50893) 6.4 % CBC W/AUTO [id number] 00:00:00 Test Item Value Reference Range Interpretation [...] NUCLEATED RBCS (test code = 0.00 K/UL 58513) CBC W/AUTO [id number] 00:00:00 Test Item Value Reference Range Interpretation [...] NUCLEATED RBCS (test code = 0.00 K/UL 01287) CBC W/AUTO [id number] 00:00:00 Test Item Value Reference Range Interpretation [...] NUCLEATED RBCS (test code = 0.00 K/UL 03676) HEMOGLOBIN [id number] 00:00:00 Test Item Value Reference Range Interpretation Comments HEMOGLOBIN A1c (test code = 34695) 6.4 % HEMOGLOBIN [id number] 00:00:00 Test Item Value Reference Range Interpretation Comments HEMOGLOBIN A1c (test code = 02585) 6.4 % HEMOGLOBIN [id number] 00:00:00 Test Item Value Reference Range Interpretation Comments HEMOGLOBIN A1c (test code = 36376) 6.4 % CBC W/AUTO [id number] 00:00:00 Test Item Value Reference Range Interpretation [...] NUCLEATED RBCS (test code = 0.00 K/UL 87324) CBC W/AUTO [id number] 00:00:00 Test Item Value Reference Range Interpretation [...] NUCLEATED RBCS (test code = 0.00 K/UL 84143) CBC W/AUTO [id number] 00:00:00 Test Item Value Reference Range Interpretation [...] NUCLEATED RBCS (test code = 0.00 K/UL 82243) HEMOGLOBIN [id number] 00:00:00 Test Item Value Reference Range Interpretation Comments HEMOGLOBIN A1c (test code = 11023) 6.4 % HEMOGLOBIN [id number] 00:00:00 Test Item Value Reference Range Interpretation Comments HEMOGLOBIN A1c (test code = 08829) 6.4 % HEMOGLOBIN [id number] 00:00:00 Test Item Value Reference Range Interpretation Comments HEMOGLOBIN A1c (test code = 25943) 6.4 % CBC W/AUTO [id number] 00:00:00 Test Item Value Reference Range Interpretation [...] NUCLEATED RBCS (test code = 0.00 K/UL 75853) CBC W/AUTO [id number] 00:00:00 Test Item Value Reference Range Interpretation [...] NUCLEATED RBCS (test code = 0.00 K/UL 69557) CBC W/AUTO [id number] 00:00:00 Test Item Value Reference Range Interpretation [...] NUCLEATED RBCS (test code = 0.00 K/UL 77773) HEMOGLOBIN [id number] 00:00:00 Test Item Value Reference Range Interpretation Comments HEMOGLOBIN A1c (test code = 66766) 6.4 % HEMOGLOBIN [id number] 00:00:00 Test Item Value Reference Range Interpretation Comments HEMOGLOBIN A1c (test code = 74246) 6.4 % HEMOGLOBIN [id number] 00:00:00 Test Item Value Reference Range Interpretation Comments HEMOGLOBIN A1c (test code = 05677) 6.4 % CBC W/AUTO [id number] 00:00:00 Test Item Value Reference Range Interpretation [...] NUCLEATED RBCS (test code = 0.00 K/UL 35983) CBC W/AUTO [id number] 00:00:00 Test Item Value Reference Range Interpretation [...] NUCLEATED RBCS (test code = 0.00 K/UL 41001) CBC W/AUTO [id number] 00:00:00 Test Item Value Reference Range Interpretation [...] NUCLEATED RBCS (test code = 0.00 K/UL 02664) C-ARM<1 HR W IMAGES*WW*2022-01-05 15:46:44 [facility]LLENEEL WILDER : 1970 Sex: FFluoroscopyLocation Code: [id number] HISTORY: SURGICAL PROCEDURE , Back painComments: Fluoroscopy was provided duringsympathetic nerve block. Approximately fluoroscopy time was 32.6 seconds. 3 images were obtained.IMPRESSION: Fluoroscopy services provided. Please see operative report for full details.Electronically signed by: Gabriele Castaneda MD 01/05/2022 3:46 PM CDT [id number] URINE MONOCLONAL *WW*2022-01-05 11:24:00 Test Item Value Reference Range Interpretation Comments PREG UR (test code = PGU) NEGATIVE NEGATIVE CBC WITH [id number] 12:44:09 Test Item Value Reference Range Interpretation Comments WBC (test code = See_Comment H [Automated 7490-2) message] The sy stem which generated this [...] RDW-SD (test code = 49.5 fL 39.0-49.9 03086-2) RDW-CV (test code = 15.5 % 12.0-15.5 788-0) PLT (test code = See_Comment H [Automated 777-3) message] The sy stem which generated this result transmitted reference range : 166 - 358 10*3/ ?L. The reference r nicholas was not used to interpret this result as normal/abnormal . MPV (test code = 10.3 fL 9.5-12.9 28447-5) NRBC/100 WBC (test See_Comment [Automat ed code = 4378432375) message] The system which generated this result transmitted reference range : 0.0 - 10.0 /100 WBCs. The refer ence range was not u sed to interpret th is result as normal/abnormal . NRBC x10^3 (test code See_Comment [Auto mated = 4456385581) message] The s ystem which generated this result transmitted reference range : 10*3/?L. The reference range was not used to interpret this result as normal/abnormal . GRAN MAT (NEUT) % 64.4 % (test code = 770-8) IMM GRAN % (test code 3.60 % = 6042233406) LYMPH % (test code = 23.5 % 736-9) MONO % (test code = 7.3 % 5905-5) EOS % (test code = 0.9 % 713-8) BASO % (test code = 0.3 % 706-2) GRAN MAT x10^3(ANC) 7.19 10*3/uL 1.88-7.09 H (test code = 0148090424) IMM GRAN x10^3 (test 0.40 10*3/uL 0.00-0.06 H code = 2981804122) LYMPH x10^3 (test code 2.63 10*3/uL 1.32-3.29 = 731-0) MONO x10^3 (test code 0.82 10*3/uL 0.33-0.92 = 742-7) EOS x10^3 (test code = 0.10 10*3/uL 0.03-0.39 711-2) BASO x10^3 (test code 0.03 10*3/uL 0.01-0.07 = 704-7) POLYCHROMASIA (test 2+ See_Comment [Automa britney code = 15539-5) message] The system which generated this result [...] . Lab Interpretation Abnormal (test code = 75437-9) [facility] [id number] 10:06:53 Test Item Value Reference Range Interpretation Comments NT-proBNP (test code 117 pg/mL See_Comment [Autom ated = 0559781877) message] The system which generated this result transmitted reference range : <=125. The reference range was not used to interpret this result as normal/abnormal . LUCILLE (test code = LUCILLE) Biotin has been reported to cause a negative bias, interpret results relative to patient's use of biotin. Lab Interpretation Normal (test code = 14088-3) [facility] METABOLIC PANEL (31820)2021-12-07 10:02:35 Test Item Value Reference Range Interpretation Comments NA (test code = 140 mmol/L 135-145 7407841872) K (test code = 3.7 mmol/L 3.5-5.0 4759741206) CL (test code = 104 mmol/L 98-108 3552812623) CO2 TOTAL (test code = 31 mmol/L 23-31 1904064840) AGAP (test code = 2-16 8103717110) BUN (test code = 21 mg/dL 7-23 9695301475) GLUCOSE (test code = 91 mg/dL 70-110 4672055374) CREATININE (test code = 1.00 mg/dL 0.50-1.04 7664205807) TOTAL BILI (test code = 0.3 mg/dL 0.1-1.3 3608621167) CALCIUM (test code = 8.1 mg/dL 8.6-10.6 L 6768665375) T PROTEIN (test code = 5.9 g/dL 6.3-8.2 L 4167879509) ALBUMIN (test code = 3.4 g/dL 3.5-5.0 L 6805706364) ALK PHOS (test code = 87 U/L 34-122 5404135484) ALTv (test code = 39 U/L 5-35 H 2-6) AST(SGOT) (test code = 24 U/L 13-40 7874936770) eGFR (test code = mL/min/1.73m2 7962826612) LUCILLE (test code = LUCILLE) Association of [...] tests). Lab Interpretation Abnormal (test code = 30106-9) [facility]2022-04-06 10:02:35 Test Item Value Reference Range Interpretation Comments MAGNESIUM (test code = 4526579948) 2.2 mg/dL 1.7-2.4 Lab Interpretation (test code = Normal 79256-9) [facility] ResourcesVIT[facility]IN B12, [id number] 22:18:47 Test Item Value Reference Range Interpretation Comments VIT B12 (test code = 979 pg/mL 240-930 H 9148157234) LUCILLE (test code = LUCILLE) Biotin has been reported to cause a positive bias, interpret results relative to patient's use of biotin. Lab Interpretation (test Abnormal code = 22281-1) [facility] ResourcesPROCALCITONIN2022-04-05 21:47:27 Test Item Value Reference Range Interpretation Comments Procalcitonin (test 0.05 ng/mL <0.07 code = 0613851660) LUCILLE (test code = LUCILLE) INTERPRETATION OF [...] lung abscess/empyema. For further information please refer to:[email or web address] Lab Interpretation Normal (test code = 15196-0) [facility] D, [id number] 20:41:30 Test Item Value Reference Range Interpretation Comments VIT D 25OH (test code = <13 25-80 L 47007-9) LUCILLE (test code = LUCILLE) Deficiency: <20 ng/mLInsufficiency: 20-24 ng/mLOptimal: 25-80 ng/mL Lab Interpretation (test Abnormal code = 76785-3) [facility] ResourcesDIFF CONSULT [id number] 20:04:06 LEUKOCYTOSIS WITH ABSOLUTE NEUTROPHILIA AND INCREASED IMMATURE GRANULOCYTES/LEFT SHIFT, CONSISTENT WITH PATIENT'S KNOWN INFECTION. NORMOCYTIC, NORMOCHROMIC ANEMIA. MILD THROMBOCYTOSIS.[facility] [id number] 18:31:30 Test Item Value Reference Range Interpretation Comments FREE T3 (test code = 1432330930) 2.49 pg/mL 2.77-5.27 L Lab Interpretation (test code = Abnormal 57064-7) [facility]-REACTIVE [id number] 17:54:11 Test Item Value Reference Range Interpretation Comments CRP (test code = 8897822373) 0.2 mg/dL <0.8 Lab Interpretation (test code = Normal 74158-2) [facility] [id number] 13:49:44 Test Item Value Reference Range Interpretation Comments FREE T4 (test code = See_Comment L [Autom ated message] 2206400467) The system ic h generated this result transmitted ref erence range: 0.78 - 2 .20 ng/dL:. The ref erence range was not u sed to interpret this result as normal/abnor mal. Lab Interpretation (test Abnormal code = 31925-6) [facility] WITH [id number] 12:20:38 Test Item Value Reference Range Interpretation Comments WBC (test code = See_Comment H [Automated 7190-2) message] The system which generated this result [...] RDW-SD (test code = 48.5 fL 39.0-49.9 21942-2) RDW-CV (test code = 15.3 % 12.0-15.5 788-0) PLT (test code = See_Comment [Automated 777-3) message] The system which generated this result transmit britney reference range : 166 - 358 10*3/ ?L. The reference range was not u sed to interpret th is result as normal/abnormal . MPV (test code = 10.4 fL 9.5-12.9 62581-1) NRBC/100 WBC (test See_Comment [Automat ed code = 2494248587) message] The system which generated this result transmit britney reference range : 0.0 - 10.0 /100 WBCs. The reference range was not used to interpret this result as normal/abnormal . NRBC x10^3 (test code See_Comment [Auto mated = 9970723016) message] The system which generated this result transmit britney reference range : 10*3/?L. The reference range was not used to interpret this result as normal/abnormal . GRAN MAT (NEUT) % 74.0 % (test code = 770-8) IMM GRAN % (test code 3.20 % = 5871738877) LYMPH % (test code = 14.7 % 736-9) MONO % (test code = 7.7 % 5905-5) EOS % (test code = 0.1 % 713-8) BASO % (test code = 0.3 % 706-2) GRAN MAT x10^3(ANC) 11.18 10*3/uL 1.88-7.09 H (test code = 3235503718) IMM GRAN x10^3 (test 0.48 10*3/uL 0.00-0.06 H code = 5139092837) LYMPH x10^3 (test code 2.22 10*3/uL 1.32-3.29 = 731-0) MONO x10^3 (test code 1.17 10*3/uL 0.33-0.92 H = 742-7) EOS x10^3 (test code = <0.03 0.03-0.39 L 711-2) BASO x10^3 (test code 0.04 10*3/uL 0.01-0.07 = 704-7) Lab Interpretation Abnormal (test code = 10006-3) [facility]FERRITIN [id number] 11:45:10 Test Item Value Reference Range Interpretation Comments FERRITIN (test code = 16.1 ng/mL 11.0-264.0 7330717339) LUCILLE (test code = LUCILLE) Biotin has been reported to cause a negative bias, interpret results relative to patient's use of biotin. Lab Interpretation (test Normal code = 55458-2) [facility] ResourcesTHYROID STIMULATING [id number] 11:41:28 Test Item Value Reference Range Interpretation Comments TSH (test code = See_Comment L [Automated message] 8999579729) The system [employer] generated this result transmitted ref erence range: 0.45 - 4 .70 mIU/L. The refe rence range was not u sed to interpret this result as normal/abnor mal. Lab Interpretation (test Abnormal code = 32926-7) [facility] ResourcesSEDIMENTATION [id number] 11:30:34 Test Item Value Reference Range Interpretation Comments ESR (test code = See_Comment [Automated message] 9082775356) The system whic h generated this result transmitted ref erence range: 0 - 20 m m/HR. The reference r nicholas was not used to interpret this result as normal/abnor mal. Lab Interpretation (test Normal code = 55930-6) [facility] ResourcesTROPONIN [id number] 11:30:08 Test Item Value Reference Interpretation Comments Range TROPONIN I (test 0.023 ng/mL See_Comment [Automated code = 1038973537) message] The system which generated this result [...] biotin. Lab Interpretation Normal (test code = 15161-7) [facility]. METABOLIC PANEL (50458)2021-12-06 11:28:58 Test Item Value Reference Range Interpretation Comments NA (test code = 140 mmol/L 135-145 3804053190) K (test code = 3.1 mmol/L 3.5-5.0 L 9975596188) CL (test code = 106 mmol/L 98-108 7716095515) CO2 TOTAL (test code = 31 mmol/L 23-31 4562888564) AGAP (test code = 2-16 0805705921) BUN (test code = 24 mg/dL 7-23 H 0339559879) GLUCOSE (test code = 88 mg/dL 70-110 0270331713) CREATININE (test code = 0.95 mg/dL 0.50-1.04 4895123559) TOTAL BILI (test code = 0.3 mg/dL 0.1-1.3 5111172006) CALCIUM (test code = 8.4 mg/dL 8.6-10.6 L 3139251893) T PROTEIN (test code = 5.7 g/dL 6.3-8.2 L 9163172548) ALBUMIN (test code = 3.3 g/dL 3.5-5.0 L 3049623370) ALK PHOS (test code = 83 U/L 34-122 8848697365) ALTv (test code = 44 U/L 5-35 H 1742-6) AST(SGOT) (test code = 27 U/L 13-40 4759273472) eGFR (test code = mL/min/1.73m2 3288888874) LUCILLE (test code = LUCILLE) Association of [...] tests). Lab Interpretation Abnormal (test code = 56695-5) [facility] ResourcesN-TERMINAL [id number] 11:26:47 Test Item Value Reference Range Interpretation Comments NT-proBNP (test code 442 pg/mL See_Comment H [Autom ated = 5046606669) message] The system which generated this result transmitted reference range : <=125. The reference range was not used to interpret this result as normal/abnormal . LUCILLE (test code = LUCILLE) Biotin has been reported to cause a negative bias, interpret results relative to patient's use of biotin. Lab Interpretation Abnormal (test code = 89984-3) [facility] ResourcesIRON [id number] 11:19:22 Test Item Value Reference Range Interpretation Comments IRON (test code = 2955238277) 34 ug/dL 50-160 L TIBC (test code = 7567676667) 408 ug/dL 250-410 % FE SAT (test code = 9201232870) 8 % 20-50 L Lab Interpretation (test code = Abnormal 53156-4) [facility] ResourcesMAGNESIUM2022-04-05 11:18:47 Test Item Value Reference Range Interpretation Comments MAGNESIUM (test code = 5874945957) 1.9 mg/dL 1.7-2.4 Lab Interpretation (test code = Normal 75373-7) [facility] ResourcesPHOSPHORUS2022-04-05 11:18:02 Test Item Value Reference Range Interpretation Comments PHOSPHORUS (test code = 9241665893) 3.3 mg/dL 2.5-5.0 Lab Interpretation (test code = Normal 38064-6) [facility] ResourcesLIPID PANEL (18321)(TOTAL CHOLESTEROL, TRIGLYCERIDES, HDL)2021-12-06 11:09:41 Test Item Value Reference Range Interpretation Comments CHOL (test code = 208 mg/dL 120-200 H 8663250857) HDL (test code = 99 mg/dL >50 7729180711) HDLC RATIO (test code = See_Comment [Au tomated message] 6886430571) The system [employer] generated this result transmit britney reference range : <=4.5. The refe rence range was not u sed to interpret th is result as normal/abnormal . TRIG (test code = 172 mg/dL 30-170 H 8976043599) LDL CHOL (test code = 75 mg/dL See_Comment [Auto mated message] 26501-0) The system [employer] generated this result transmit britney reference range : <=160. The refe rence range was not u sed to interpret th is result as normal/abnormal . VLDL (test code = 34 mg/dL 5-60 2672940690) Lab Interpretation (test Abnormal code = 33580-3) [facility] ResourcesURIC [id number] 11:09:21 Test Item Value Reference Range Interpretation Comments URIC ACID (test code = 9058119841) 6.1 mg/dL 2.9-6.0 H Lab Interpretation (test code = Abnormal 97540-7) [facility] ResourcesGLYCOSYLATED HEMOGLOBIN (A1C)2021-12-06 08:48:15 Test Item Value Reference Range Interpretation Comments HGB A1C (test code = 5.7 % 4.0-5.7 4548-4) LUCILLE (test code = LUCILLE) Reference RangesNormal: <5.7%Prediabetes: 5.7 - 6.4%Diabetes: > 6.5% Lab Interpretation (test Normal code = 49943-6) [facility] ResourcesCBC WITH [id number] 01:01:58 Test Item Value Reference Range Interpretation Comments WBC (test code = See_Comment H [Automated 6590-2) message] The system which generated this result [...] RDW-SD (test code = 46.4 fL 39.0-49.9 12961-0) RDW-CV (test code = 15.2 % 12.0-15.5 788-0) PLT (test code = See_Comment H [Automated 777-3) message] The system which generated this result transmit britney reference range : 166 - 358 10*3/ ?L. The reference range was not u sed to interpret th is result as normal/abnormal . MPV (test code = 10.6 fL 9.5-12.9 36058-3) NRBC/100 WBC (test See_Comment [Automat ed code = 2437303396) message] The system which generated this result transmit britney reference range : 0.0 - 10.0 /100 WBCs. The reference range was not used to interpret this result as normal/abnormal . NRBC x10^3 (test code See_Comment [Auto mated = 2801079777) message] The system which generated this result transmit britney reference range : 10*3/?L. The reference range was not used to interpret this result as normal/abnormal . SEG % (test code = 83 % 33-76 H 44681-4) BAND % (test code = 4 % 0-1 H 93427-3) LYMPH % (test code = 7 % 14-54 L 48437-8) MONO % (test code = 5 % 0-4 H 29427-5) EOS % (test code = 1 % 0-3 96831-4) ANC (test code = 19.01 10*3/uL 1.88-7.09 H 753-4) TOXIC CHANGES (test Present A code = 803-7) Lab Interpretation Abnormal (test code = 65862-4) [facility] ResourcesWENDY [id number] 00:45:54 Test Item Value Reference Interpretation Comments Range TROPONIN I (test 0.022 ng/mL See_Comment [Automated code = 8267849619) message] The system which generated this result [...] biotin. Lab Interpretation Normal (test code = 32160-3) [facility] ResourcesN-TERMINAL [id number] 00:42:51 Test Item Value Reference Range Interpretation Comments NT-proBNP (test code 544 pg/mL See_Comment H [Autom ated = 5867106689) message] The system which generated this result transmitted reference range : <=125. The reference range was not used to interpret this result as normal/abnormal . LUCILLE (test code = LUCILLE) Biotin has been reported to cause a negative bias, interpret results relative to patient's use of biotin. Lab Interpretation Abnormal (test code = 60512-9) [facility] ResourcesACTIVATED PARTIAL THRMPLAS [id number] 00:36:33 Test Item Value Reference Range Interpretation [...] seconds. Lab Interpretation Abnormal (test code = 50350-3) [facility] ResourcesPROTHROMBIN TIME / [id number] 00:34:31 Test Item Value Reference Range Interpretation [...] tions. Lab Interpretation (test Normal code = 11531-2) [facility]. METABOLIC PANEL (44748)2021-12-06 00:34:11 Test Item Value Reference Range Interpretation Comments NA (test code = 141 mmol/L 135-145 0564290473) K (test code = 3.9 mmol/L 3.5-5.0 8439490749) CL (test code = 104 mmol/L 98-108 1495962673) CO2 TOTAL (test code = 27 mmol/L 23-31 8533176633) AGAP (test code = 2-16 8723361133) BUN (test code = 24 mg/dL 7-23 H 2254007725) GLUCOSE (test code = 117 mg/dL 70-110 H 6971172534) CREATININE (test code = 0.96 mg/dL 0.50-1.04 0279483104) TOTAL BILI (test code = 0.4 mg/dL 0.1-1.0 3261530703) CALCIUM (test code = 8.9 mg/dL 8.6-10.6 6090426716) T PROTEIN (test code = 6.5 g/dL 6.3-8.2 8068212442) ALBUMIN (test code = 4.0 g/dL 3.5-5.0 1637203418) ALK PHOS (test code = 107 U/L 34-122 3631594876) ALTv (test code = 49 U/L 5-35 H 1742-6) AST(SGOT) (test code = 44 U/L 13-40 H 0756786037) eGFR (test code = mL/min/1.73m2 7806187922) LUCILLE (test code = LUCILLE) Association of [...] tests). Lab Interpretation Abnormal (test code = 47657-1) [facility] ResourcesPROCALCITONIN2022-04-04 02:29:14 Test Item Value Reference Range Interpretation Comments Procalcitonin (test 0.11 ng/mL <0.08 H code = 8529487443) LUCILLE (test code = LUCILLE) INTERPRETATION OF [...] lung abscess/empyema. For further information please refer to:[email or web address] Lab Interpretation Abnormal (test code = 42006-1) [facility] ResourcesLactic Acid Whole [id number] 15:26:51 Test Item Value Reference Range Interpretation Comments LACTIC ACID (test code = 2.36 mmol/L 0.50-2.20 H 7190674419) Lab Interpretation (test code = Abnormal 53439-5) [facility] ResourcesCBC with [id number] 09:45:08 Test Item Value Reference Range Interpretation [...] RDW-SD (test code = 48.3 fL 39.0-49.9 51647-3) RDW-CV (test code = 15.2 % 12.0-15.5 788-0) PLT (test code = See_Comment [Automated 777-3) message] The system which generated this result transmit britney reference range : 166 - 358 10*3/ ?L. The reference range was not u sed to interpret th is result as normal/abnormal . MPV (test code = 10.3 fL 9.5-12.9 66648-5) NRBC/100 WBC (test See_Comment [Automat ed code = 3611556567) message] The system which generated this result transmit britney reference range : 0.0 - 10.0 /100 WBCs. The reference range was not used to interpret this result as normal/abnormal . NRBC x10^3 (test code See_Comment [Auto mated = 6282747767) message] The system which generated this result transmit britney reference range : 10*3/?L. The reference range was not used to interpret this result as normal/abnormal . GRAN MAT (NEUT) % 90.3 % (test code = 770-8) IMM GRAN % (test code 1.20 % = 8067361334) LYMPH % (test code = 5.8 % 736-9) MONO % (test code = 2.6 % 5905-5) EOS % (test code = 0.0 % 713-8) BASO % (test code = 0.1 % 706-2) GRAN MAT x10^3(ANC) 19.89 10*3/uL 1.88-7.09 H (test code = 8418715738) IMM GRAN x10^3 (test 0.27 10*3/uL 0.00-0.06 H code = 6922636190) LYMPH x10^3 (test code 1.28 10*3/uL 1.32-3.29 L = 731-0) MONO x10^3 (test code 0.57 10*3/uL 0.33-0.92 = 742-7) EOS x10^3 (test code = <0.03 0.03-0.39 L 711-2) BASO x10^3 (test code 0.03 10*3/uL 0.01-0.07 = 704-7) POLYCHROMASIA (test 2+ See_Comment [Automa britney code = 49929-4) message] The system which generated this result transmit britney reference range : 2+. The referen ce range was not u sed to interpret th is result as normal/abnormal . TOXIC CHANGES (test Present A code = 803-7) Lab Interpretation Abnormal (test code = 38735-0) [facility] Metabolic Panel (NA, K, CL, CO2, GLUCOSE, BUN, CREATININE, CA)2021-12-04 09:38:00 Test Item Value Reference Range Interpretation Comments NA (test code = 137 mmol/L 135-145 5681384356) K (test code = 3.7 mmol/L 3.5-5.0 4725232942) CL (test code = 107 mmol/L 98-108 9283328356) CO2 TOTAL (test code = 21 mmol/L 23-31 L 4300862738) AGAP (test code = 2-16 9990999349) BUN (test code = 19 mg/dL 7-23 0411603279) GLUCOSE (test code = 149 mg/dL 70-110 H 2340241999) CREATININE (test code = 1.00 mg/dL 0.50-1.04 3414608649) CALCIUM (test code = 8.8 mg/dL 8.6-10.6 7694923757) eGFR (test code = mL/min/1.73m2 9975355765) LUCILLE (test code = LUCILLE) Association of [...] tests). Lab Interpretation Abnormal (test code = 58018-0) [facility] ResourcesLactic Acid Whole Peoul2364-29-10 09:20:11 Test Item Value Reference Range Interpretation Comments LACTIC ACID (test code = 3.77 mmol/L 0.50-2.20 H 2642842598) Lab Interpretation (test code = Abnormal 36325-3) [facility] ResourcesURINALYSIS2022-04-02 23:35:41 Test Item Value Reference Range Interpretation Comments APPEARANCE (test code = Clear Clear 4970404625) COLOR (test code = Yellow Yellow 4853971928) PH (test code = 4.8-8.0 6763639820) SP GRAVITY (test code = 1.003-1.030 7125490246) GLU U QUAL (test code = Normal Normal 3739821284) BLOOD (test code = Negative Negative Interfere nce from 2636519815) ascorbic acid m ay cause false neg ative results. KETONES (test code = Negative Negative 5927263368) PROTEIN (test code = Negative Negative 2887-8) UROBILIN (test code = Normal Normal 8502147286) BILIRUBIN (test code = Negative Negative 0473452743) NITRITE (test code = Negative Negative 2330157699) [place] (test code = Negative Negative 0785248317) RBC/HPF (test code = See_Comment [Autom ated message] 0825279319) The system [employer] generated this result transmitted ref erence range: 0 - 3 HP F. The reference range was not used to int erpret this result as normal/abnormal . WBC/HPF (test code = See_Comment [Autom ated message] 0909071012) The system [employer] generated this result transmitted ref erence range: 0 - 5 HP F. The reference range was not used to int erpret this result as normal/abnormal . BACTERIA (test code = Negative Negative 8522319710) SQ EPITH (test code = See_Comment H [Auto mated message] 5668125360) The system [employer] generated this result transmitted ref erence range: <=2 HPF. The reference range was not used to int erpret this result as normal/abnormal . Lab Interpretation (test Abnormal code = 44412-4) [facility] WITH [id number] 21:54:52 Test Item Value Reference Range Interpretation [...] RDW-SD (test code = 48.1 fL 39.0-49.9 82801-9) RDW-CV (test code = 15.3 % 12.0-15.5 788-0) PLT (test code = See_Comment [Automated 777-3) message] The system which generated this result transmit britney reference range : 166 - 358 10*3/ ?L. The reference range was not u sed to interpret th is result as normal/abnormal . MPV (test code = 10.1 fL 9.5-12.9 45351-3) NRBC/100 WBC (test See_Comment [Automat ed code = 0276707252) message] The system which generated this result transmit britney reference range : 0.0 - 10.0 /100 WBCs. The reference range was not used to interpret this result as normal/abnormal . NRBC x10^3 (test code See_Comment [Auto mated = 5793333814) message] The system which generated this result transmit britney reference range : 10*3/?L. The reference range was not used to interpret this result as normal/abnormal . GRAN MAT (NEUT) % 90.9 % (test code = 770-8) IMM GRAN % (test code 0.80 % = 6831313214) LYMPH % (test code = 6.4 % 736-9) MONO % (test code = 1.8 % 5905-5) EOS % (test code = 0.0 % 713-8) BASO % (test code = 0.1 % 706-2) GRAN MAT x10^3(ANC) 17.07 10*3/uL 1.88-7.09 H (test code = 1723882037) IMM GRAN x10^3 (test 0.15 10*3/uL 0.00-0.06 H code = 8227411039) LYMPH x10^3 (test code 1.20 10*3/uL 1.32-3.29 L = 731-0) MONO x10^3 (test code 0.34 10*3/uL 0.33-0.92 = 742-7) EOS x10^3 (test code = <0.03 0.03-0.39 L 711-2) BASO x10^3 (test code <0.03 0.01-0.07 = 704-7) TOXIC CHANGES (test Present A code = 803-7) Lab Interpretation Abnormal (test code = 18663-5) [facility] ResourcesN-TERMINAL [id number] 21:47:46 Test Item Value Reference Range Interpretation Comments NT-proBNP (test code 662 pg/mL See_Comment H [Autom ated = 5337704667) message] The system which generated this result transmitted reference range : <=125. The reference range was not used to interpret this result as normal/abnormal . LUCILLE (test code = LUCILLE) Biotin has been reported to cause a negative bias, interpret results relative to patient's use of biotin. Lab Interpretation Abnormal (test code = 14270-3) [facility] ResourcesTROPONIN [id number] 21:47:46 Test Item Value Reference Interpretation Comments Range TROPONIN I (test 0.007 ng/mL See_Comment [Automated code = 1564669156) message] The system which generated this result [...] biotin. Lab Interpretation Normal (test code = 63765-6) [facility] ResourcesAMYLASE2022-04-02 21:36:08 Test Item Value Reference Range Interpretation Comments KIERA (test code = 2914756845) 66 U/L 35-110 Lab Interpretation (test code = Normal 53535-2) [facility] ResourcesLIPASE2022-04-02 21:36:08 Test Item Value Reference Range Interpretation Comments LIPASE (test code = 5958164295) 83 U/L 0-220 Lab Interpretation (test code = Normal 22665-2) [facility] ResourcesCOMP. METABOLIC PANEL (57929)2021-12-03 21:36:08 Test Item Value Reference Range Interpretation Comments NA (test code = 137 mmol/L 135-145 9691551436) K (test code = 4.5 mmol/L 3.5-5.0 2942509571) CL (test code = 107 mmol/L 98-108 2348391789) CO2 TOTAL (test code = 20 mmol/L 23-31 L 4906007064) AGAP (test code = 2-16 1349591855) BUN (test code = 20 mg/dL 7-23 1131036688) GLUCOSE (test code = 140 mg/dL 70-110 H 0272147511) CREATININE (test code = 0.97 mg/dL 0.50-1.04 4781350428) TOTAL BILI (test code = 0.3 mg/dL 0.1-1.5 8486773596) CALCIUM (test code = 8.9 mg/dL 8.6-10.6 7787265648) T PROTEIN (test code = 7.1 g/dL 6.3-8.2 7565813841) ALBUMIN (test code = 4.3 g/dL 3.5-5.0 1728062450) ALK PHOS (test code = 97 U/L 34-122 1086321366) ALTv (test code = 56 U/L 5-35 H 1742-6) AST(SGOT) (test code = 38 U/L 13-40 4434364600) eGFR (test code = mL/min/1.73m2 9794492182) LUCILLE (test code = LUCILLE) Association of [...] tests). Lab Interpretation Abnormal (test code = 41242-3) [facility] ResourcesAC ABG + LACTIC [id number] 21:21:29 Test Item Value Reference Range Interpretation Comments PH (test code = 2) 7.35-7.45 PCO2 (test code = See_Comment L [Automate d 8633214233) message] The sy stem which generated this result transmitted reference range : 35 - 45 mmHg. The reference range was not used to interpret this result as normal/abnormal . PO2 (test code = See_Comment [Automated 2058001192) message] The sy stem which generated this result transmitted reference range : 80 - 100 mmHg. The reference range was not used to interpret this result as normal/abnormal . HCO3 (test code = See_Comment [Automate d 9244144245) message] The sy stem which generated this result transmitted reference range : 22 - 26 mEq/L. The reference range was not used to interpret this result as normal/abnormal . BE (test code = See_Comment [Automated 4707678260) message] The sy stem which generated this result transmitted reference range : -3.0 - 3.0 mEq/ L. The reference r nicholas was not used to interpret this result as normal/abnormal . LACTIC ACID (test code 2.96 mmol/L 0.50-2.20 H = 7345627207) Lab Interpretation Abnormal (test code = 64357-4) [facility] Metabolic Panel (NA, K, CL, CO2, GLUCOSE, BUN, CREATININE, CA)2021-11-10 09:40:55 Test Item Value Reference Range Interpretation Comments NA (test code = 138 mmol/L 135-145 2041361370) K (test code = 3.4 mmol/L 3.5-5.0 L 6484877183) CL (test code = 107 mmol/L 98-108 2976726996) CO2 TOTAL (test code = 25 mmol/L 23-31 3584378993) AGAP (test code = 2-16 6819049426) BUN (test code = 15 mg/dL 7-23 0104120512) GLUCOSE (test code = 110 mg/dL 70-110 4545989718) CREATININE (test code = 0.81 mg/dL 0.50-1.04 7057377275) CALCIUM (test code = 7.8 mg/dL 8.6-10.6 L 4642729697) eGFR (test code = mL/min/1.73m2 9729685529) LUCILLE (test code = LUCILLE) Association of [...] tests). Lab Interpretation Abnormal (test code = 77453-9) [facility] with Lhsowldizhps3478-16-88 09:25:30 Test Item Value Reference Range Interpretation [...] (test code = 57.2 fL 39.0-49.9 H 68785-1) RDW-CV (test code = 17.0 % 12.0-15.5 H 788-0) PLT (test code = See_Comment [Automated 777-3) message] The sy stem which generated this result transmitted reference range : 166 - 358 10*3/ ?L. The reference r nicholas was not used to interpret this result as normal/abnormal . MPV (test code = 9.2 fL 9.5-12.9 L 84337-1) NRBC/100 WBC (test See_Comment [Automat ed code = 9702751733) message] The system which generated this result transmitted reference range : 0.0 - 10.0 /100 WBCs. The refer ence range was not u sed to interpret th is result as normal/abnormal . NRBC x10^3 (test code See_Comment [Auto mated = 7134638352) message] The s ystem which generated this result transmitted reference range : 10*3/?L. The reference range was not used to interpret this result as normal/abnormal . GRAN MAT (NEUT) % 72.2 % (test code = 770-8) IMM GRAN % (test code 1.30 % = 6959828587) LYMPH % (test code = 18.9 % 736-9) MONO % (test code = 6.3 % 5905-5) EOS % (test code = 1.2 % 713-8) BASO % (test code = 0.1 % 706-2) GRAN MAT x10^3(ANC) 8.06 10*3/uL 1.88-7.09 H (test code = 1437611276) IMM GRAN x10^3 (test 0.14 10*3/uL 0.00-0.06 H code = 7555853968) LYMPH x10^3 (test code 2.10 10*3/uL 1.32-3.29 = 731-0) MONO x10^3 (test code 0.70 10*3/uL 0.33-0.92 = 742-7) EOS x10^3 (test code = 0.13 10*3/uL 0.03-0.39 711-2) BASO x10^3 (test code <0.03 0.01-0.07 = 704-7) Lab Interpretation Abnormal (test code = 74684-6) [facility] ResourcesL[facility] Acid Whole Rjbos5676-39-85 09:22:39 Test Item Value Reference Range Interpretation Comments LACTIC ACID (test code = 3.32 mmol/L 0.50-2.20 H 0471540286) Lab Interpretation (test code = Abnormal 38734-2) [facility] ResourcesACTIVATED PARTIAL THRMPLAS [id number] 02:13:42 Test Item Value Reference Range Interpretation Comments APTT Patient (test code See_Comment L [Au tomated message] = 3173-2) The system [employer] generated this result transmitted ref erence range: 26 - 36 Seconds. The reference range was not used to int erpret this result as normal/abnormal . Lab Interpretation (test Abnormal code = 49931-2) [facility] ResourcesPROTHROMBIN TIME / [id number] 02:13:42 Test Item Value Reference Range Interpretation Comments PROTIME PATIENT (test See_Comment [Auto mated message] code = 5964-2) The system Definition 6 ich generated this result transmitted ref erence range: 10.1 - 1 2.6 Seconds. The re ference range was not u sed to interpret this result as normal/abnor mal. INR (test code = 6301-6) Nor mal INR <1.1; Warfarin Therap eutic range 2.0 to 3. 0 or 2.5 to 3.5, dep ending upon the indica tions. Lab Interpretation (test Normal code = 26439-1) [facility] ResourcesD-[id number] 02:13:42 Test Item Value Reference Interpretation Comments Range D-DIMER (test code = See_Comment H [Autom ated [id number]) message] The system which generated this result [...] diagnosis. Lab Interpretation Abnormal (test code = 96529-2) [facility]. METABOLIC PANEL (43307)2021-11-10 01:57:17 Test Item Value Reference Range Interpretation Comments NA (test code = 139 mmol/L 135-145 0183058202) K (test code = 3.9 mmol/L 3.5-5.0 7180013281) CL (test code = 106 mmol/L 98-108 2642159968) CO2 TOTAL (test code = 27 mmol/L 23-31 6427926568) AGAP (test code = 2-16 2698132598) BUN (test code = 17 mg/dL 7-23 1200464351) GLUCOSE (test code = 135 mg/dL 70-110 H 8091793571) CREATININE (test code = 0.72 mg/dL 0.50-1.04 5645239481) TOTAL BILI (test code = 0.3 mg/dL 0.1-1.6 3176329694) CALCIUM (test code = 8.1 mg/dL 8.6-10.6 L 8382094441) T PROTEIN (test code = 5.6 g/dL 6.3-8.2 L 1680653194) ALBUMIN (test code = 3.3 g/dL 3.5-5.0 L 5203150946) ALK PHOS (test code = 126 U/L 34-122 H 2606927603) ALTv (test code = 47 U/L 5-35 H 1742-6) AST(SGOT) (test code = 27 U/L 13-40 2683294733) eGFR (test code = mL/min/1.73m2 1072826387) LUCILLE (test code = LUCILLE) Association of [...] tests). Lab Interpretation Abnormal (test code = 25430-3) [facility] ResourcesAC ABG + LACTIC [id number] 01:51:44 Test Item Value Reference Range Interpretation Comments PH (test code = 2) 7.35-7.45 PCO2 (test code = See_Comment [Automate d 7790191824) message] The sy stem which generated this result transmitted reference range : 35 - 45 mmHg. The reference range was not used to interpret this result as normal/abnormal . PO2 (test code = See_Comment L [Automated 8805035096) message] The sy stem which generated this result transmitted reference range : 80 - 100 mmHg. The reference range was not used to interpret this result as normal/abnormal . HCO3 (test code = See_Comment [Automate d 8215875081) message] The sy stem which generated this result transmitted reference range : 22 - 26 mEq/L. The reference range was not used to interpret this result as normal/abnormal . BE (test code = See_Comment [Automated 8823328395) message] The sy stem which generated this result transmitted reference range : -3.0 - 3.0 mEq/ L. The reference r nicholas was not used to interpret this result as normal/abnormal . LACTIC ACID (test code 4.25 mmol/L 0.50-2.20 H QUES = 1626462267) Lab Interpretation Abnormal (test code = 76207-3) [facility] ResourcesCBC WITH [id number] 01:50:58 Test Item Value Reference Range Interpretation Comments WBC (test code = See_Comment H [Automated 6690-2) message] The system which generated this result transmit britney reference range : 4.30 - 11.10 10*3/?L. The reference range was not used to interpret this result as normal/abnormal . RBC (test code = See_Comment L [Automated 789-8) message] The system which generated this result transmit briteny reference range : 3.93 - 5.25 10*6/?L. [...] (test code = 55.7 fL 39.0-49.9 H 08035-1) RDW-CV (test code = 16.8 % 12.0-15.5 H 788-0) PLT (test code = See_Comment [Automated 777-3) message] The system which generated this result transmit britney reference range : 166 - 358 10*3/ ?L. The reference range was not u sed to interpret th is result as normal/abnormal . MPV (test code = 9.5 fL 9.5-12.9 79548-0) NRBC/100 WBC (test See_Comment [Automat ed code = 6386865015) message] The system which generated this result transmit britney reference range : 0.0 - 10.0 /100 WBCs. The reference range was not used to interpret this result as normal/abnormal . NRBC x10^3 (test code <0.01 See_Comment [Auto mated = 7693364324) message] The system which generated this result transmit britney reference range : 10*3/?L. The reference range was not used to interpret this result as normal/abnormal . GRAN MAT (NEUT) % 84.7 % (test code = 770-8) IMM GRAN % (test code 0.80 % = 6953053870) LYMPH % (test code = 10.9 % 736-9) MONO % (test code = 3.4 % 5905-5) EOS % (test code = 0.1 % 713-8) BASO % (test code = 0.1 % 706-2) GRAN MAT x10^3(ANC) 11.84 10*3/uL 1.88-7.09 H (test code = 5047370589) IMM GRAN x10^3 (test 0.11 10*3/uL 0.00-0.06 H code = 0063930650) LYMPH x10^3 (test code 1.52 10*3/uL 1.32-3.29 = 731-0) MONO x10^3 (test code 0.47 10*3/uL 0.33-0.92 = 742-7) EOS x10^3 (test code = <0.03 0.03-0.39 L 711-2) BASO x10^3 (test code <0.03 0.01-0.07 = 704-7) Lab Interpretation Abnormal (test code = 01612-9) [facility] ResourcesCYTO [id number] 21:38:57 Test Item Value Reference Range Interpretation Comments Case Report (test Non-Gynecologic Cytology code = 1051854193) ?Case: [id number] ?Authorizing Provider: ?Anaya Kline MD ? ? Collected: ? 10/21/2021 1249 ?Ordering Location: ? ? [facility] ?Received: ?10/21/2021 1257 ? Medicine/Surgery [facility] 7B ?Pathologist: ? Glenna Alejandra MD ? Specimen: ? ?LUNG, LEFT UPPER LOBE, BRONCHOALVEOLAR LAVAGE ? Final Diagnosis (test g5yvyYOvLHAxa1twDRZzmWLv code = 4455308697) ZzEwMzNcZnRuYmpcdWMxIHtc cnRmMVxlcGljOTYwMVxhbnNp ZHPrtMRzN7VutzgwVTvxUL3u FL3ifTxenAUljTUzLNFbTeDq h2xrj179dDQzx6hxWNEVjucn vVz6xMvxT19yk2D1TtuwA2jk ZWQwXGdyZWVuMFxibHVlMDt9 XHBhcGVydzEyMjQwXHBhcGVy eJM2MJDaXB9ypurtUGfzGUfd GQIbxnY1RNWbcMYwR1LdQQBf IO8zahgrTBX2DCgqENDzHPD4 KcHlCSHqi4Mandi0EqVlpDWa ZFxwbGFpblxmczIwXHBhclxi IEExLiAgTFVORywgTEVGVCBV KGUWRnIMO5UOKaUUVx9CO2fS SMqVRQ9GLEWlWBFOEMsZNovi SLJiNdIyLJDrEljeLcOtEa3p DKECESiYKH6ICRHAABeERHeT JH4TWMVKAHFiTQywUZSmG6PA IBDSRY1QEvXmWMMeyvswPwAc nUHzzTpyvjWmFFvvb6PnP8An MjAwMFxhbnNpXGRlZmxhbmcx MZJiFMJ4liFjBOHmTSrwSRVb LYfaDw5zpLTelBvfHvVtRDBi q1zhwwTGWWhpRlQsV031MSVg ARcxr7rza3PhWZZpaFPvj2B6 IBJDuyiasWc6p5xzWjEpFfM1 kXVqUVauJ6nuhlWjiTYgJ7Mb uLCoyJd9bJkxO34mz4W8Pzej T7szPBKlUZHnK6NwDQ3eDMNh Kfj0YKP0XWU6PFBvRRXnK0Ic KE8kJZKpoWQjKVx7x9cibBzm KWDiPND0j3pgNDkuzrL5PG1k fy2nwBm0i7titgJeWKYhZTUq fOGUNIOxI2LqiKnmJl4oxTp3 qRrqFnkrKQE0Tix9WK8dwa94 wbf1bGenFBIjpukmBjN5IGxg WSHvvhfbYRw3MVyzNLSozYM0 YXMozTVbN5WfJOSjPC3sjrd1 CID1OYadSUQgPuQ2AIDfqMOy GIWddCywLEjhb008HYX1UbVh SV5eB9Mgs8V3yE1jjDRqNIUy qJXqVhBcMFJonz6maOGbGDjn u9GeGSB1ewF8vCYtyUWeYEGm CR02Olqxf8BiNhskBEL1ESHc xmBnd6Vnh7sgNlXlhoZdF6vh R4FjFRWoUJJmDBYyIaSxazBm c3Shs2MseMFptOu6s7yoIOKv PYNhjBnxz3kyYPJ2FVUwM0G5 eUWfo5kaLNusPMZtcXC4vcX7 AFZxlWKeU3AslU1hORCvFO2n vgi2w4dzVOO1QDpiCZDpOrT2 ofA0KNZssCFlVQEjpKihWLid q775FQE0EiXqUWNsw2PkI0At pRhlL07qqOogS22yWMQqaToc jE9atAaicW1jHnPbOdXyBIjb bFxwbGFpblxmMVxmczIwXGxh ormfHHHjFBqxF5gaQuXqLVWu iMhaAFxgl4BrSEGyYYIyKryo czIwXHBhciBJIGhhdmUgcGVy y46aVJahwIXlAWBtRUbeAFVr mIrcf6YuL6stOG6sW5GiaTFb liQuuoEjSXbkQBHnt1m8dSTx zZqws3DzuJIkAS12qkGxMEQa SVH3XPVws5imZG36zjiyTaOb yH31ndIjkqXjZFQka2qbV7xv tKOpn5Kgg0LmhbQbSJcbh4Hb FL2owOIuoazahRP0ZFQjoEFe mzLzgzE9nTceIBYxhZ2cwY4m bZkqrY6rEuQiEvFpWButHG3u UYOpU7utcQDoMGGdGBXkS7nb SeLbjU4hyEfnPkpwhkB4LRSl cn19 Final Diagnosis i2ijeMJtUGPtgTE8DoFkRWOx Comment (test code = h4ieh1PjoYImeTZdFWpafQYs 4326015192) jmZmvg15fIH9xE49AG1xDTLu UhL3VTJtylG4Ncs5FJKcIHNt fOYpB968i0sde7otytXbsNL9 LWLwLJUiR5DqTP0jKMEoaZSu R56gqXUrJAB1JATwBYVzqYDi GIZjBBE9GLLmnEVpV0reKORf JS2zsciwNUoiEYqsKCFnnBR0 HSJtlECwV4VgSYEiDUffYSTj utu3TbAkIx6exBXifJduNZjq FQKeBYDkHDigFEQnTdTvB61i LHAqWDGqa9gwmZ8ktPy5XAKk s37vdF9tGQPrnZsuyVillLCc FQbrkfBntcWjCeU1XWTjxoIe gHBtVG0lG9EgcZjxM2KrBtND RMKyVElpf9UeMX7jICQ5eDCy FaAnfeB9oY9lfWLgcxEpQJJg PmJmU2NbSU1qBV8zfFddcxSz dCBjZWxscyBpZGVudGlmaWVk AipuBBBxA3QkFKZlht2= Clinical Information 1. Pneumonia / covid / (test code = SARS 9181888652) Gross Description y8txwVPvSJFooSJ6BcBkHVNe (test code = z8qho3QzxVEmuWZiVSyrzLGa 9967037163) okFfnm62cOI5mC54CM2uEUEo TuN4IUKgveM8Fjq0RBLeTGIu oSRhB041x7hsq7mkeyRekFT6 PHLaXQSvQ0KqNR0dPPVxvGWk G46xyYKhAJL0KSZnUUNfpUNw MUNxLBH2YINolYPeV2rxBOUq LL2uvnflSZabHYccCAWdoRY8 JTGknXGjX4JfJNKlBHtdFNMb qtw4HsRpYi1peAFccQhgFBbd KGVkz2tqBMFchYCoJBG0AYfk aMJcTAJlXVXcVDr3QIBdKMzo wYYaRD8dfWejVrmttDycb2Dn dCBcXGlkIDUxMDAyIFxcZGIg U7RCUOZlBkPxSra4RRVwCOr6 XSy4DY8NGkAiWJMzThh9RKQn WfLfQDl3KFioRE5XLQS3GuU1 NNDiXfyuJSVhKeXdMDs9EDFk XFxmbCBcXGYgQXJpYWwgXFxm dcYsEMHwYR7rqJsfzDYiscit czIwXHBhclxmczIyXHBhciBB QR4cMLmKAskiABjMDkHyDLCY TSRiMV3TXMjvGeUTPkRKZ4YI VkVPTEFSIExBVkFHRVxwYXJc YhGkBGrzEtErIyUaBKe1TGZh TeIho2nkoMZdT7JsfpRvGEWw tGXuXKA4KUZzY7Tvs9SeY7he GHSvIlx1uIQpaqKmXIa8UPJe LqTul1naoRRcBVKgAOFpxvIf NDJob3avQKZnLHdWnMRne8Cb myEwfdXfITXctKemafL1RSJa Ro0qTK1uk0JdkHLubvJbOFZO UQPdpdfys1fiv4Dah1RlrX8f ZClcZnMyMlxjZjAgIHtcZXBp Q1HbP5LoetU5b9slzPhwq6Ak rFHgLX9daDKvnA== Disclaimer (test code f0kcrIJaUSCdn3akUPTazDAy = 0746054164) ZzEwMzNcZnRuYmpcdWMxIHtc knDeCQkyz0PqB6WwShZyHPtw bnNpXGRlZmxhbmcxMDMzXGZ0 gbIqWHWoRLpiURIdWPibQh5y kBKbvMzrArVuZZPks9qqzhMZ PMseXhVbN675TILvIAcdz6jl n0CeKESzzFRhg8V2PNKBlysf tSy7bQdqI56is1M5CdftV5vt EXTsSIQwH3FtBE7jHYRrVpt4 ZXI7WFU5CKYxQWUlK6OvPD7z FHWugVZlFFa8w6vnmObfYQZh YJO2h1jbZHiwfrOfKO9fre7a vAp6f3ftggFgFZOjCYPqvTUN JXLlL3FlgQwfNg8skAa7qNgl BuwvJRJ9Wju9XO8azm63bkf7 bOdcYSSafvhdNgO6NNarIGWj ykmvVDg8DPdtCMRkcMX8JJRv kBBjC1JjYZDcQO4geqa9SMH9 EElpRZQyDpO4HHWlmDUlLTYf lSbqZYrdo161QZA8AoEiID5u Z2Kao4X6fN7hyWFzEUPjzMIf PqHbGKWgex2lqFGsCJyrh0Rg ZMO0nlW6oOLbqLGfLCIzZG01 Gsdxj7FqKfcoj5UoO91fdJT8 JHvxf3pvIE6iLcX8ndQeXEhz r4eoeN7dQaN4OZgqYQ6uQC0v KSNwxP7egfpbPVEcDtKlxkxe FGEifMwqblJgBo2spSrfPKR9 AQmnW9vzkD1qMkL6KKqsK6yz nJ3mDHj7MMbjnOY4EXIfiG1p DM6hoiueb5kcWXjePKrgPFYz eoF9goT8DYAcsPBmU9AivK7p VHFfZF5propig7opYCR2SEdz CLUbBHG3BwHoYOIqy9Bxaaa2 FlNwa1OaiGXbYVrsD95rv241 EPLxtzMdH0ssrAXqwxubzQZp useoMDkzrzV9QYAqflIrj1Td NNWkEQW2LGvzFVdfjZErASKy kEhdm8qrL1EqlNHwWPBrCNxr XGYxXGZzMjBcbGFuZzEwMzNc aGljaFxmMVxkYmNoXGYxXGxv T4tiZaNiU9VqPWOrBzWmrPWz I6xeALpdqaQeZKVcxdXccND4 DYrvW8f5PXFmogGgtHj9qdZz BhGgMNXpPXS5HQngsYFwCMKe a3SuvlobmUUgWi3lwNErPPRb pF0tMOGqTJSlCJelCP6ioXt7 UERFmZBonOAtMhLKZEDdOP11 jlFkKFQTnmlwg8T9YUkxYVZs f6XuyQIiQ9vlx0AoOXLor22r NU0fq9Z9l9keWEY5EG8jh9Ei QAIfkCGjxQDrJJJtb0Dohboi w7EmDBOkdxOcw1UaHXMimcGo mTOaKDBghhQkyl1pmfBiTVYu JFRdC6QbjgyxpZtvqfYsTTGh tc2lzjTpTEL5LXIIOVBpIHXl d4LtiB6joCWULBN8oZCdze3g vjYPrUVeYKLnbd73SLJoHU9q A3dnITTmTBVufiDjbVXhl0Eu FRPbgGU9eTFeIW0ZWkGUm19u IGFuZCBEcnVnIEFkbWluaXN0 jnZ4yK2jGUxHLKOnZur+IFRo WHHQAPCpQG7xolRyk3CrkaKe vViiOOOrdOBlr2OmwDAhi7Zx mRjct8WsvSWqwEWdBK4zQOAy clxwYXIgVVRNQiBMYWJvcmF0 h6NtNCAyZUUkWDW9wTfhxql6 JLXgtQ8dSWGmZ4nbuydtAOby PEVlx6ArkW0aoKXTpCPyt2Om bNEvdRBYaSTxIE1kprAbGSbM WItSLYW9vyCyZSQmt0LbAMoi Q5thF65hkArngBl2gSA9SBV9 pD0wVge+IFxwYXJccGFyIEFw xHIbzPUbPPUxdVbxsgXxA7Ea imBzrB1qsLIaxmZoCI0dGQ4t D5D3aOMjGPYepxSxk2zeSIcs dmUgYmVlbiByZXZpZXdlZCBm l5NnIBgyJNL7QUkdcrSfboDi dWRpbmcgSCZFLCBTcGVjaWFs LFQ2VAbawpWonhDzTV6yeT7u vBpxpK2dnSYhyHJ7eoyyOSKl TPUlhLwpTLOhNQ3kzPFtNEAs hxRAaUgtgWBriA0jM9CuXGHk GCXidc2jCPXfqT3uLDiiw6Sj ijezBOAlFVVlYPErmgCdfu7z LHRtkARLPL2TWMaewADwj4Ht aqNgQ7bNMPZ8OTPnWpOjNwxr LWOasHDrmFJdXCSmvb15BZYr jD7gvLbtJZWjoX6djE0sqFag tO1aRhUbTiWnPHkpHV5hLBKx L6roqDTwBKWbZUJbT9saBrXy hU1hmKyqQQkqJmCgYvRrVJnx YXJ9fQ== Embedded Images (test code = 9091508500) [facility] ResourcesANTI-NUCLEAR ANTIBODY [id number] 20:07:20 Test Item Value Reference Range Interpretation Comments SHIRA (test code = Negative Negative 3788216819) LUCILLE (test code = LUCILLE) Negative - [...] separately. Lab Interpretation (test Normal code = 20620-7) [facility] ResourcesBAS[facility] METABOLIC PANEL (NA, K, CL, CO2, GLUCOSE, BUN, CREATININE, CA)2021-10-24 13:05:02 Test Item Value Reference Range Interpretation Comments NA (test code = 134 mmol/L 135-145 L 1054665887) K (test code = 4.5 mmol/L 3.5-5.0 1881004183) CL (test code = 99 mmol/L 98-108 5464002645) CO2 TOTAL (test code = 30 mmol/L 23-31 0164158382) AGAP (test code = 2-16 0412804126) BUN (test code = 23 mg/dL 7-23 5777068381) GLUCOSE (test code = 118 mg/dL 70-110 H 4849341832) CREATININE (test code = 0.71 mg/dL 0.50-1.04 6099721716) CALCIUM (test code = 8.2 mg/dL 8.6-10.6 L 7843692948) eGFR (test code = mL/min/1.73m2 6896163360) LUCILLE (test code = LUCILLE) Association of [...] tests). Lab Interpretation Abnormal (test code = 52121-8) [facility] METABOLIC PANEL (NA, K, CL, CO2, GLUCOSE, BUN, CREATININE, CA)2021-10-24 13:05:02 Test Item Value Reference Range Interpretation Comments NA (test code = 134 mmol/L 135-145 L 6531311289) K (test code = 4.5 mmol/L 3.5-5.0 5259917588) CL (test code = 99 mmol/L 98-108 2958188821) CO2 TOTAL (test code = 30 mmol/L 23-31 2697771058) AGAP (test code = 2-16 7008307703) BUN (test code = 23 mg/dL 7-23 2712280128) GLUCOSE (test code = 118 mg/dL 70-110 H 6648731908) CREATININE (test code = 0.71 mg/dL 0.50-1.04 8175956622) CALCIUM (test code = 8.2 mg/dL 8.6-10.6 L 7927857834) eGFR (test code = mL/min/1.73m2 5202869232) LUCILLE (test code = LUCILLE) Association of [...] tests). Lab Interpretation Abnormal (test code = 86410-5) [facility] WITHOUT [id number] 12:51:39 Test Item Value Reference Range Interpretation Comments WBC (test code = 6690-2) See_Comment H [A utomated message] The system [employer] generated this result transmit britney reference range : 4.30 - 11.10 10*3/?L. The reference range was not used to interpret this result as normal/abnormal . RBC (test code = 789-8) See_Comment [Au tomated message] The system [employer] generated this result transmit britney reference range [...] See_Comment H [Au tomated message] The system [facility] generated this result transmit britney reference range : 166 - 358 10*3/?L. The reference range was not used to interpret this result as normal/abnormal . MPV (test code = 10.1 fL 9.5-12.9 55199-2) RDW-CV (test code = 14.2 % 12.0-15.5 788-0) RDW-SD (test code = 43.8 fL 39.0-49.9 38399-0) NRBC x10^3 (test code = See_Comment [Au tomated message] 7142312474) The system [facility] generated this result transmit britney reference range : 10*3/?L. The reference range was not used to interpret this result as normal/abnormal . NRBC/100 WBC (test code See_Comment [Au tomated message] = 7578780812) The system [facility] generated this result transmit britney reference range : 0.0 - 10.0 /100 WBC s. The reference r nicholas was not used to interpret this result as normal/abnormal . IPF % (test code = 8806113711) Lab Interpretation (test Abnormal code = 15839-6) [facility] WITHOUT [id number] 12:51:39 Test Item Value Reference Range Interpretation Comments WBC (test code = 6690-2) See_Comment H [A utomated message] The system [facility] generated this result transmit britney reference range : 4.30 - 11.10 10*3/?L. The reference range was not used to interpret this result as normal/abnormal . RBC (test code = 789-8) See_Comment [Au tomated message] The system [employer] generated this result transmit britney reference range [...] See_Comment H [Au tomated message] The system [employer] generated this result transmit britney reference range : 166 - 358 10*3/?L. The reference range was not used to interpret this result as normal/abnormal . MPV (test code = 10.1 fL 9.5-12.9 10773-5) RDW-CV (test code = 14.2 % 12.0-15.5 788-0) RDW-SD (test code = 43.8 fL 39.0-49.9 50793-9) NRBC x10^3 (test code = See_Comment [Au tomated message] 2810940855) The system [employer] generated this result transmit britney reference range : 10*3/?L. The reference range was not used to interpret this result as normal/abnormal . NRBC/100 WBC (test code See_Comment [Au tomated message] = 3312794320) The system [facility] generated this result transmit britney reference range : 0.0 - 10.0 /100 WBC s. The reference r nicholas was not used to interpret this result as normal/abnormal . IPF % (test code = 4867398836) Lab Interpretation (test Abnormal code = 50270-8) [facility] ResourcesMYCOBACTERIUM TUBERCULOSIS COMPLEX PCR 2021-10-23 16:23:29 Test Item Value Reference Range Interpretation Comments Mycobacterium Negative Negative tuberculosis DNA (test code = 78684-2) LUCILLE (test code = LUCILLE) Method performance specifications have not been established for specimens other than SPUTUM. Results for other tested specimen types should be interpreted based on clinical context. Lab Interpretation Normal (test code = 63851-1) [facility] ResourcesMYCOBACTERIUM TUBERCULOSIS COMPLEX PCR 2021-10-23 16:23:29 Test Item Value Reference Range Interpretation Comments Mycobacterium Negative Negative tuberculosis DNA (test code = 80948-0) LUCILLE (test code = LUCILLE) Method performance specifications have not been established for specimens other than SPUTUM. Results for other tested specimen types should be interpreted based on clinical context. Lab Interpretation Normal (test code = 50908-0) [facility] ResourcesRESPIRATORY PANEL BY [id number] 20:36:40 Test Item Value Reference Range Interpretation Comments Adenovirus (test code = Negative Negative 27392-6) Coronavirus HKU1 (test Negative Negative code = 32921-1) Coronavirus NL63 (test Negative Negative code = 55304-6) Coronavirus 229E (test Negative Negative code = 59990-6) Coronavirus OC43 (test Negative Negative code = 78433-0) Human Metapneumovirus Negative Negative (test code = 34777-6) Human Negative Negative Rhinovirus/Enterovirus (test code = 13996-0) Influenza A (test code = Negative Negative 16637-8) Influenza B (test code = Negative Negative 16411-8) Parainfluenza Virus 1 Negative Negative (test code = 99024-8) Parainfluenza Virus 2 Negative Negative (test code = 68138-3) Parainfluenza Virus 3 Negative Negative (test code = 94215-2) Parainfluenza Virus 4 Negative Negative (test code = 72171-7) Respiratory Syncytial Negative Negative Virus (test code = 33697-0) Bordetella parapertussis Negative Negative (test code = 08694-6) Bordetella pertussis Negative Negative (test code = 96929-6) Chlamydia pneumoniae Negative Negative (test code = 11731-0) Mycoplasma pneumoniae Negative Negative (test code = 61234-2) LUCILLE (test code = LUCILLE) Negative:A negative result does not rule-out infection. ?This assay does not test for all potential infectious agents. ? Positive:A positive test result does not necessarily indicate the presence of viable organism. ? Lab Interpretation (test Normal code = 89881-9) [facility] ResourcesRES[facility]IRATORY PANEL BY [id number] 20:36:40 Test Item Value Reference Range Interpretation Comments Adenovirus (test code = Negative Negative 00388-7) Coronavirus HKU1 (test Negative Negative code = 76146-7) Coronavirus NL63 (test Negative Negative code = 77715-1) Coronavirus 229E (test Negative Negative code = 43125-2) Coronavirus OC43 (test Negative Negative code = 14188-6) Human Metapneumovirus Negative Negative (test code = 04826-8) Human Negative Negative Rhinovirus/Enterovirus (test code = 36349-0) Influenza A (test code = Negative Negative 15226-0) Influenza B (test code = Negative Negative 08789-7) Parainfluenza Virus 1 Negative Negative (test code = 63715-9) Parainfluenza Virus 2 Negative Negative (test code = 23437-9) Parainfluenza Virus 3 Negative Negative (test code = 42903-8) Parainfluenza Virus 4 Negative Negative (test code = 82512-7) Respiratory Syncytial Negative Negative Virus (test code = 75679-7) Bordetella parapertussis Negative Negative (test code = 62192-6) Bordetella pertussis Negative Negative (test code = 91868-6) Chlamydia pneumoniae Negative Negative (test code = 96041-3) Mycoplasma pneumoniae Negative Negative (test code = 41533-2) LUCILLE (test code = LUCILLE) Negative:A negative result does not rule-out infection. ?This assay does not test for all potential infectious agents. ? Positive:A positive test result does not necessarily indicate the presence of viable organism. ? Lab Interpretation (test Normal code = 87262-2) [facility] ResourcesANTI-NUCLEAR ANTIBODY-PATHOLOGIST [id number] 19:52:54ANA - Pathologist InterpretationANA HEp-2 IIFA Pathologist [...] female gender. Clinical correlation is recommended. ? (https://pubmed.ncbi.nlm.nih.gov/96718847/) ? If the patient's clinical conditi on [...] [facility]Joint [facility] ResourcesANTI-NUCLEAR ANTIBODY- PATHOLOGIST [id number] 19:52:54ANA - Pathologist InterpretationANA HEp-2 II Pathologist [...] female gender. Clinical correlation is recommended. ? (https://pubmed.ncbi.nlm.nih.gov/42964294/) ? If the patient's clinical conditi on [...] [facility] WITH [id number] 11:43:17 Test Item Value Reference Range Interpretation Comments WBC (test code = See_Comment H [Automated 1631-2) message] The system which generated this result transmit britney reference range : 4.30 - 11.10 10*3/?L. The reference range was not used to interpret this result as normal/abnormal . RBC (test code = See_Comment [Automated 379-8) message] The system which generated this result [...] RDW-SD (test code = 46.8 fL 39.0-49.9 83641-1) RDW-CV (test code = 14.6 % 12.0-15.5 788-0) PLT (test code = See_Comment H [Automated 777-3) message] The system which generated this result transmit britney reference range : 166 - 358 10*3/ ?L. The reference range was not u sed to interpret th is result as normal/abnormal . MPV (test code = 10.2 fL 9.5-12.9 44321-9) NRBC/100 WBC (test See_Comment [Automat ed code = [id number]) message] The system which generated this result transmit britney reference range : 0.0 - 10.0 /100 WBCs. The reference range was not used to interpret this result as normal/abnormal . NRBC x10^3 (test code <0.01 See_Comment [Auto mated = [id number]) message] The system which generated this result transmit britney reference range : 10*3/?L. The reference range was not used to interpret this result as normal/abnormal . GRAN MAT (NEUT) % 93.6 % (test code = 770-8) IMM GRAN % (test code 2.10 % = [id number]) LYMPH % (test code = 2.8 % 736-9) MONO % (test code = 1.4 % 5905-5) EOS % (test code = 0.0 % 713-8) BASO % (test code = 0.1 % 706-2) GRAN MAT x10^3(ANC) 17.50 10*3/uL 1.88-7.09 H (test code = 2484391580) IMM GRAN x10^3 (test 0.40 10*3/uL 0.00-0.06 H code = [id number]) LYMPH x10^3 (test code 0.53 10*3/uL 1.32-3.29 L = 731-0) MONO x10^3 (test code 0.26 10*3/uL 0.33-0.92 L = 742-7) EOS x10^3 (test code = <0.03 0.03-0.39 L 711-2) BASO x10^3 (test code <0.03 0.01-0.07 = 704-7) TOXIC CHANGES (test Present A code = 803-7) Lab Interpretation Abnormal (test code = 99744-1) [facility] WITH [id number] 11:43:17 Test Item Value Reference Range Interpretation Comments WBC (test code = See_Comment H [Automated 9490-2) message] The system which generated this result transmit britney reference range : 4.30 - 11.10 10*3/?L. The reference range was not used to interpret this result as normal/abnormal . RBC (test code = See_Comment [Automated 759-8) message] The system which generated this result [...] RDW-SD (test code = 46.8 fL 39.0-49.9 54841-9) RDW-CV (test code = 14.6 % 12.0-15.5 788-0) PLT (test code = See_Comment H [Automated 777-3) message] The system which generated this result transmit britney reference range : 166 - 358 10*3/ ?L. The reference range was not u sed to interpret th is result as normal/abnormal . MPV (test code = 10.2 fL 9.5-12.9 79308-1) NRBC/100 WBC (test See_Comment [Automat ed code = 2287049489) message] The system which generated this result transmit britney reference range : 0.0 - 10.0 /100 WBCs. The reference range was not used to interpret this result as normal/abnormal . NRBC x10^3 (test code <0.01 See_Comment [Auto mated = 0809202539) message] The system which generated this result transmit britney reference range : 10*3/?L. The reference range was not used to interpret this result as normal/abnormal . GRAN MAT (NEUT) % 93.6 % (test code = 770-8) IMM GRAN % (test code 2.10 % = 5289592840) LYMPH % (test code = 2.8 % 736-9) MONO % (test code = 1.4 % 5905-5) EOS % (test code = 0.0 % 713-8) BASO % (test code = 0.1 % 706-2) GRAN MAT x10^3(ANC) 17.50 10*3/uL 1.88-7.09 H (test code = 2042338263) IMM GRAN x10^3 (test 0.40 10*3/uL 0.00-0.06 H code = 3522395936) LYMPH x10^3 (test code 0.53 10*3/uL 1.32-3.29 L = 731-0) MONO x10^3 (test code 0.26 10*3/uL 0.33-0.92 L = 742-7) EOS x10^3 (test code = <0.03 0.03-0.39 L 711-2) BASO x10^3 (test code <0.03 0.01-0.07 = 704-7) TOXIC CHANGES (test Present A code = 803-7) Lab Interpretation Abnormal (test code = 57150-4) [facility] METABOLIC PANEL (NA, K, CL, CO2, GLUCOSE, BUN, CREATININE, CA)2021-10-22 11:20:32 Test Item Value Reference Range Interpretation Comments NA (test code = 136 mmol/L 135-145 3661362401) K (test code = 4.3 mmol/L 3.5-5.0 7512262037) CL (test code = 103 mmol/L 98-108 0954976876) CO2 TOTAL (test code = 26 mmol/L 23-31 5453119259) AGAP (test code = 2-16 4074721637) BUN (test code = 18 mg/dL 7-23 7946408982) GLUCOSE (test code = 185 mg/dL 70-110 H 2087563323) CREATININE (test code = 0.69 mg/dL 0.50-1.04 6402747256) CALCIUM (test code = 7.9 mg/dL 8.6-10.6 L 9188543756) eGFR (test code = mL/min/1.73m2 4020310474) LUCILLE (test code = LUCILLE) Association of [...] tests). Lab Interpretation Abnormal (test code = 37933-5) [facility] 11:20:32 Test Item Value Reference Range Interpretation Comments MAGNESIUM (test code = 0730075178) 2.2 mg/dL 1.7-2.4 Lab Interpretation (test code = Normal 53594-0) [facility] (NA, K, CL, CO2, GLUCOSE, BUN, CREATININE, CA)2021-10-22 11:20:32 Test Item Value Reference Range Interpretation Comments NA (test code = 136 mmol/L 135-145 0304201051) K (test code = 4.3 mmol/L 3.5-5.0 7399989969) CL (test code = 103 mmol/L 98-108 1203511217) CO2 TOTAL (test code = 26 mmol/L 23-31 1476818836) AGAP (test code = 2-16 7654902497) BUN (test code = 18 mg/dL 7-23 5973324565) GLUCOSE (test code = 185 mg/dL 70-110 H 8069825246) CREATININE (test code = 0.69 mg/dL 0.50-1.04 7199775288) CALCIUM (test code = 7.9 mg/dL 8.6-10.6 L 8567027527) eGFR (test code = mL/min/1.73m2 4260665696) LUCILLE (test code = LUCILLE) Association of [...] tests). Lab Interpretation Abnormal (test code = 78035-8) [facility] 11:20:32 Test Item Value Reference Range Interpretation Comments MAGNESIUM (test code = 7108101714) 2.2 mg/dL 1.7-2.4 Lab Interpretation (test code = Normal 27014-7) [facility] [id number] 23:01:06 Test Item Value Reference Range Interpretation Comments Blood Culture-Aerobic No organisms No growth Previo us (test code = 51417-2) isolated prelim inary verified result was Culture In Progress on 10/16/2021 at 20 02 CSTPrevious preliminary verified result was No growth a t 24 hours on 10/17/2021 at 17 01 CSTPrevious preliminary verified result was No growth a t 48 hours on 10/18/2021 at 17 01 CSTPrevious preliminary verified result was No growth a t 72 hours on 10/19/2021 at 17 02 [employer] Blood No organisms No growth Previous Culture-Anaerobic isolated preliminar y (test code = 32054-5) verifi ed result was Culture In Progress on 10/16/2021 at 20 02 CSTPrevious preliminary verified result was No growth a t 24 hours on 10/17/2021 at 17 01 CSTPrevious preliminary verified result was No growth a t 48 hours on 10/18/2021 at 17 01 CSTPrevious preliminary verified result was No growth a t 72 hours on 10/19/2021 at 17 02 [employer] Lab Interpretation Normal (test code = 07436-8) [facility] [id number] 23:01:06 Test Item Value Reference Range Interpretation Comments Blood Culture-Aerobic No organisms No growth Previo us (test code = 35983-7) isolated prelim inary verified result was Culture In Progress on 10/16/2021 at 20 02 CSTPrevious preliminary verified result was No growth a t 24 hours on 10/17/2021 at 17 01 CSTPrevious preliminary verified result was No growth a t 48 hours on 10/18/2021 at 17 02 CSTPrevious preliminary verified result was No growth a t 72 hours on 10/19/2021 at 17 02 [employer] Blood No organisms No growth Previous Culture-Anaerobic isolated preliminar y (test code = 04742-3) verifi ed result was Culture In Progress on 10/16/2021 at 20 02 CSTPrevious preliminary verified result was No growth a t 24 hours on 10/17/2021 at 17 01 CSTPrevious preliminary verified result was No growth a t 48 hours on 10/18/2021 at 17 02 CSTPrevious preliminary verified result was No growth a t 72 hours on 10/19/2021 at 17 02 [employer] Lab Interpretation Normal (test code = 31655-6) [facility] CULTURE [id number] 23:01:06 Test Item Value Reference Range Interpretation Comments Blood Culture-Aerobic No organisms No growth Previo us (test code = 91646-4) isolated prelim inary verified result was Culture In Progress on 10/16/2021 at 20 02 CSTPrevious preliminary verified result was No growth a t 24 hours on 10/17/2021 at 17 01 CSTPrevious preliminary verified result was No growth a t 48 hours on 10/18/2021 at 17 01 CSTPrevious preliminary verified result was No growth a t 72 hours on 10/19/2021 at 17 02 [employer] Blood No organisms No growth Previous Culture-Anaerobic isolated preliminar y (test code = 16358-9) verifi ed result was Culture In Progress on 10/16/2021 at 20 02 CSTPrevious preliminary verified result was No growth a t 24 hours on 10/17/2021 at 17 01 CSTPrevious preliminary verified result was No growth a t 48 hours on 10/18/2021 at 17 01 CSTPrevious preliminary verified result was No growth a t 72 hours on 10/19/2021 at 17 02 [employer] Lab Interpretation Normal (test code = 01820-5) [facility] CULTURE [id number] 23:01:06 Test Item Value Reference Range Interpretation Comments Blood Culture-Aerobic No organisms No growth Previo us (test code = 89796-0) isolated prelim inary verified result was Culture In Progress on 10/16/2021 at 20 02 CSTPrevious preliminary verified result was No growth a t 24 hours on 10/17/2021 at 17 01 CSTPrevious preliminary verified result was No growth a t 48 hours on 10/18/2021 at 17 02 CSTPrevious preliminary verified result was No growth a t 72 hours on 10/19/2021 at 17 02 [employer] Blood No organisms No growth Previous Culture-Anaerobic isolated preliminar y (test code = 61154-5) verifi ed result was Culture In Progress on 10/16/2021 at 20 02 CSTPrevious preliminary verified result was No growth a t 24 hours on 10/17/2021 at 17 01 CSTPrevious preliminary verified result was No growth a t 48 hours on 10/18/2021 at 17 02 CSTPrevious preliminary verified result was No growth a t 72 hours on 10/19/2021 at 17 02 [employer] Lab Interpretation Normal (test code = 97653-1) [facility] PAN[facility] + LACTIC [id number] 20:42:21 Test Item Value Reference Range Interpretation Comments PH (test code = 2) 7.35-7.45 PCO2 (test code = See_Comment [Automate d 7665427883) message] The sy stem which generated this result transmitted reference range : 35 - 45 mmHg. The reference range was not used to interpret this result as normal/abnormal . PO2 (test code = See_Comment H [Automated 0851820334) message] The sy stem which generated this result transmitted reference range : 80 - 100 mmHg. The reference range was not used to interpret this result as normal/abnormal . HCO3 (test code = See_Comment [Automate d 6289346213) message] The sy stem which generated this result transmitted reference range : 22 - 26 mEq/L. The reference range was not used to interpret this result as normal/abnormal . BE (test code = See_Comment [Automated 6765495612) message] The sy stem which generated this result transmitted reference range : -3.0 - 3.0 mEq/ L. The reference r nicholas was not used to interpret this result as normal/abnormal . THB (test code = 12.1 g/dL 12.0-16.0 0722274454) %O2HB (test code = 99.5 % 94.0-99.0 H 3026949272) %COHB ART (test code = 0.1 % 0.0-1.5 3403877678) %METHB ART (test code = 0.1 % 0.4-1.5 L 4167279422) VOL%O2 ART (test code = 17.8 % 15.0-23.0 0204882999) NA (test code = 135 mmol/L 135-145 3611893070) K+ (test code = 4.3 mmol/L 3.5-5.0 5387399559) AC CA IONZ (test code = 4.50 mg/dL 4.50-5.30 4663427785) GLUCOSE (test code = 108 mg/dL 70-110 2680265696) LACTIC ACID (test code 2.19 mmol/L 0.50-2.20 = 6606803871) Lab Interpretation Abnormal (test code = 82243-2) [facility] 20 + LACTIC [id number] 20:42:21 Test Item Value Reference Range Interpretation Comments PH (test code = 2) 7.35-7.45 PCO2 (test code = See_Comment [Automate d 0213827680) message] The sy stem which generated this result transmitted reference range : 35 - 45 mmHg. The reference range was not used to interpret this result as normal/abnormal . PO2 (test code = See_Comment H [Automated 9243610193) message] The sy stem which generated this result transmitted reference range : 80 - 100 mmHg. The reference range was not used to interpret this result as normal/abnormal . HCO3 (test code = See_Comment [Automate d 8279293234) message] The sy stem which generated this result transmitted reference range : 22 - 26 mEq/L. The reference range was not used to interpret this result as normal/abnormal . BE (test code = See_Comment [Automated 1551488524) message] The sy stem which generated this result transmitted reference range : -3.0 - 3.0 mEq/ L. The reference r nicholas was not used to interpret this result as normal/abnormal . THB (test code = 12.1 g/dL 12.0-16.0 3673327200) %O2HB (test code = 99.5 % 94.0-99.0 H 7320584075) %COHB ART (test code = 0.1 % 0.0-1.5 1987974596) %METHB ART (test code = 0.1 % 0.4-1.5 L 7242243907) VOL%O2 ART (test code = 17.8 % 15.0-23.0 5712929898) NA (test code = 135 mmol/L 135-145 6120893977) K+ (test code = 4.3 mmol/L 3.5-5.0 7134527116) AC CA IONZ (test code = 4.50 mg/dL 4.50-5.30 5540020142) GLUCOSE (test code = 108 mg/dL 70-110 0177697549) LACTIC ACID (test code 2.19 mmol/L 0.50-2.20 = 5200529337) Lab Interpretation Abnormal (test code = 96837-5) [facility]IOTENSIN CONVERTING [id number] 20:19:53 Test Item Value Reference Range Interpretation Comments MELLY (test code = 28 U/L 9-67 Performed B y: ARUP 2742-5) [address] [place] [address] [id number] Director: Korin Barillas MD [facility] ResourcesANGIOTENSIN CONVERTING [id number] 20:19:53 Test Item Value Reference Range Interpretation Comments MELLY (test code = 28 U/L 9-67 Performed B y: ARUP 2742-5) [address] [place] [address] [id number] Director: Korin Barillas MD [facility] FLUID MANUAL [id number] 19:44:45 Test Item Value Reference Range Interpretation Comments BF SEGS% (test code = 72948-7) 2 % BF LYMPHS% (test code = 22813-6) 12 % BF MACROPHAGE% (test code = 84337-1) 86 % BF #CELLS CNTD (test code = 1010845115) cells/uL [facility] FLUID MANUAL [id number] 19:44:45 Test Item Value Reference Range Interpretation Comments BF SEGS% (test code = 43893-3) 2 % BF LYMPHS% (test code = 46081-3) 12 % BF MACROPHAGE% (test code = 39559-0) 86 % BF #CELLS CNTD (test code = 3427287629) cells/uL [facility] FLUID DIRECT [id number] 19:44:30 Test Item Value Reference Range Interpretation Comments BF COLOR Clear (test code = 0873572693) BF WBC Count See_Comment [Automated (test code = message] The sy stem 5062966282) which generated this result transmitted reference range : /?L. The refere nce range was not u sed to interpret th is result as normal/abnormal . BF RBC Count <3000 See_Comment [Automated (test code = message] The sy stem 6919030172) which generated this result transmitted reference range : /?L. The refere nce range was not u sed to interpret th is result as normal/abnormal . LUCILLE (test The reference range code = LUCILLE) and other method performance specifications have not been established for this body fluid. ?The test results must be integrated into the clinical context for interpretation. [facility] FLUID DIRECT [id number] 19:44:30 Test Item Value Reference Range Interpretation Comments BF COLOR Clear (test code = 2266472885) BF WBC Count See_Comment [Automated (test code = message] The sy stem 7322452657) which generated this result transmitted reference range : /?L. The refere nce range was not u sed to interpret th is result as normal/abnormal . BF RBC Count <3000 See_Comment [Automated (test code = message] The sy stem 0481321615) which generated this result transmitted reference range : /?L. The refere nce range was not u sed to interpret th is result as normal/abnormal . LUCILLE (test The reference range code = LUCILLE) and other method performance specifications have not been established for this body fluid. ?The test results must be integrated into the clinical context for interpretation. [facility] WITH [id number] 19:27:30 Test Item Value Reference Range Interpretation [...] RDW-SD (test code = 45.8 fL 39.0-49.9 31809-4) RDW-CV (test code = 14.4 % 12.0-15.5 788-0) PLT (test code = See_Comment H [Automated 777-3) message] The system which generated this result transmit britney reference range : 166 - 358 10*3/ ?L. The reference range was not u sed to interpret th is result as normal/abnormal . MPV (test code = 10.4 fL 9.5-12.9 39179-9) NRBC/100 WBC (test See_Comment [Automat ed code = 6926150452) message] The system which generated this result transmit britney reference range : 0.0 - 10.0 /100 WBCs. The reference range was not used to interpret this result as normal/abnormal . NRBC x10^3 (test code See_Comment [Auto mated = 6436945303) message] The system which generated this result transmit britney reference range : 10*3/?L. The reference range was not used to interpret this result as normal/abnormal . SEG % (test code = 84 % 33-76 H 25407-4) BAND % (test code = 8 % 0-1 H 54603-6) MYELO % (test code = 2 % See_Comment H [Autom ated 25782-2) message] The system which generated this result transmit britney reference range : <=0. The refere nce range was not u sed to interpret th is result as normal/abnormal . LYMPH % (test code = 4 % 14-54 L 78836-5) MONO % (test code = 2 % 0-4 74687-8) ANC (test code = 21.16 10*3/uL 1.88-7.09 H 753-4) Lab Interpretation Abnormal (test code = 18315-2) [facility] WITH [id number] 19:27:30 Test Item Value Reference Range Interpretation [...] RDW-SD (test code = 45.8 fL 39.0-49.9 10101-2) RDW-CV (test code = 14.4 % 12.0-15.5 788-0) PLT (test code = See_Comment H [Automated 777-3) message] The system which generated this result transmit britney reference range : 166 - 358 10*3/ ?L. The reference range was not u sed to interpret th is result as normal/abnormal . MPV (test code = 10.4 fL 9.5-12.9 70978-8) NRBC/100 WBC (test See_Comment [Automat ed code = 7927784622) message] The system which generated this result transmit britney reference range : 0.0 - 10.0 /100 WBCs. The reference range was not used to interpret this result as normal/abnormal . NRBC x10^3 (test code See_Comment [Auto mated = 2825000810) message] The system which generated this result transmit britney reference range : 10*3/?L. The reference range was not used to interpret this result as normal/abnormal . SEG % (test code = 84 % 33-76 H 16825-9) BAND % (test code = 8 % 0-1 H 59139-9) MYELO % (test code = 2 % See_Comment H [Autom ated 16111-3) message] The system which generated this result transmit britney reference range : <=0. The refere nce range was not u sed to interpret th is result as normal/abnormal . LYMPH % (test code = 4 % 14-54 L 07637-9) MONO % (test code = 2 % 0-4 49291-1) ANC (test code = 21.16 10*3/uL 1.88-7.09 H 753-4) Lab Interpretation Abnormal (test code = 42224-2) [facility] METABOLIC PANEL (NA, K, CL, CO2, GLUCOSE, BUN, CREATININE, CA)2021-10-21 19:20:26 Test Item Value Reference Range Interpretation Comments NA (test code = 125 mmol/L 135-145 L 9757487219) K (test code = 4.4 mmol/L 3.5-5.0 Slight 8287904909) hemolysis CL (test code = 98 mmol/L 98-108 6652416762) CO2 TOTAL (test code 19 mmol/L 23-31 L = 6320599084) AGAP (test code = 2-16 3619205167) BUN (test code = 21 mg/dL 7-23 Slight 8550109215) hemolysis GLUCOSE (test code = 155 mg/dL 70-110 H 0305960612) CREATININE (test code 0.63 mg/dL 0.50-1.04 = 4498888730) CALCIUM (test code = 6.9 mg/dL 8.6-10.6 L 3112817026) eGFR (test code = mL/min/1.73m2 6905912156) LUCILLE (test code = LUCILLE) Association of [...] tests). Lab Interpretation Abnormal (test code = 93139-8) [facility] (NA, K, CL, CO2, GLUCOSE, BUN, CREATININE, CA)2021-10-21 19:20:26 Test Item Value Reference Range Interpretation Comments NA (test code = 125 mmol/L 135-145 L 6633743132) K (test code = 4.4 mmol/L 3.5-5.0 Slight 3197918130) hemolysis CL (test code = 98 mmol/L 98-108 4565723478) CO2 TOTAL (test code 19 mmol/L 23-31 L = 0639451391) AGAP (test code = 2-16 6794717867) BUN (test code = 21 mg/dL 7-23 Slight 7639634938) hemolysis GLUCOSE (test code = 155 mg/dL 70-110 H 8937079808) CREATININE (test code 0.63 mg/dL 0.50-1.04 = 7364532849) CALCIUM (test code = 6.9 mg/dL 8.6-10.6 L 3108054973) eGFR (test code = mL/min/1.73m2 5793881745) LUCILLE (test code = LUCILLE) Association of [...] tests). Lab Interpretation Abnormal (test code = 92396-6) [facility]2022-02-18 19:12:03 Test Item Value Reference Range Interpretation Comments Fibrinogen (test code = 6620171701) 585 mg/dL 167-453 H Lab Interpretation (test code = Abnormal 90659-1) [facility] ResourcesPROTHROMBIN TIME / [id number] 19:12:03 Test Item Value Reference Range Interpretation Comments PROTIME PATIENT (test See_Comment H [Auto mated message] code = 5964-2) The system [employer] generated this result transmitted ref erence range: 10.1 - 1 2.6 Seconds. The reference range was not used to int erpret this result as normal/abnormal . INR (test code = 6301-6) Nor mal INR <1.1; Warfarin Therap eutic range 2.0 to 3. 0 or 2.5 to 3.5, dep ending upon the indica tions. Lab Interpretation (test Abnormal code = 01281-0) [facility]2022-02-18 19:12:03 Test Item Value Reference Range Interpretation Comments Fibrinogen (test code = 4721948072) 585 mg/dL 167-453 H Lab Interpretation (test code = Abnormal 05016-6) [facility] ResourcesPROTHROMBIN TIME / [id number] 19:12:03 Test Item Value Reference Range Interpretation Comments PROTIME PATIENT (test See_Comment H [Auto mated message] code = 5964-2) The system [employer] generated this result transmitted ref erence range: 10.1 - 1 2.6 Seconds. The reference range was not used to int erpret this result as normal/abnormal . INR (test code = 6301-6) Nor mal INR <1.1; Warfarin Therap eutic range 2.0 to 3. 0 or 2.5 to 3.5, dep ending upon the indica tions. Lab Interpretation (test Abnormal code = 74036-2) [facility] ResourcesURIC [id number] 04:54:18 Test Item Value Reference Range Interpretation Comments URIC ACID (test code = 9360928030) 4.3 mg/dL 2.9-6.0 Lab Interpretation (test code = Normal 72233-7) [facility] ResourcesUR[facility] [id number] 04:54:18 Test Item Value Reference Range Interpretation Comments URIC ACID (test code = 7917553349) 4.3 mg/dL 2.9-6.0 Lab Interpretation (test code = Normal 95111-6) [facility] ResourcesTransthoracic echo (TTE)2021-10-20 20:54:06 Test Item Value Reference Range Interpretation Comments EF(Teich) (test code = 63.80 % 8741081648) LVIDD (test code = 4.40 cm 3003108960) LVIDS (test code = 2.90 cm 7088964680) IVS (test code = 0.86 cm 1417359651) LVPWD (test code = 0.86 cm 9542888235) LVOT diameter (test code 2.00 cm = 1759986408) FS (test code = 35 % 9673603019) LA size (test code = 3.4 cm 6748081533) LAV(MOD-sp4) (test code = 41.40 mL 6302373556) Ao root annulus (test 2.44 cm code = 9838242941) Ao root diam (test code = 2.44 cm 1972781836) Aortic root (test code = 2.44 cm 5133222251) PW (test code = 0.86 cm 0.6-1.5 1528772442) EF - 2D (test code = 63.80 % 70364881) Interventricular Septum 0.86 cm Diastolic Thickness by 2D (test code = 3558482) Radiology Study observation (narrative) (test code = 54708-8) LUCILLE (test code = LUCILLE) ?Left?Ventricle: Left ventricle is normal in size and function. Normal wall thickness. Normal systolic function with a visually estimated EF of 55 - 60%. ?Aortic?Valve: Aortic valve is normal in structure and function. ?Mitral?Valve: Mitral valve is normal in structure and function. VitalsHeight Weight BSA (Calculated - sq m) BP Pulse 60 220lb ? ?114/63 81 [facility]an[facility] (TTE)2021-10-20 20:54:06 Test Item Value Reference Range Interpretation Comments EF(Teich) (test code = 63.80 % 1160985206) LVIDD (test code = 4.40 cm 2654882803) LVIDS (test code = 2.90 cm 8106524295) IVS (test code = 0.86 cm 2934514800) LVPWD (test code = 0.86 cm 8900405656) LVOT diameter (test code 2.00 cm = 1855240508) FS (test code = 35 % 3988503162) LA size (test code = 3.4 cm 5651501601) LAV(MOD-sp4) (test code = 41.40 mL 7528434735) Ao root annulus (test 2.44 cm code = 6955447072) Ao root diam (test code = 2.44 cm 4274575725) Aortic root (test code = 2.44 cm 7347393204) PW (test code = 0.86 cm 0.6-1.5 0442426071) EF - 2D (test code = 63.80 % 53628210) Interventricular Septum 0.86 cm Diastolic Thickness by 2D (test code = 3990050) Radiology Study observation (narrative) (test code = 15799-1) LUCILLE (test code = LUCILLE) ?Left?Ventricle: Left ventricle is normal in size and function. Normal wall thickness. Normal systolic function with a visually estimated EF of 55 - 60%. ?Aortic?Valve: Aortic valve is normal in structure and function. ?Mitral?Valve: Mitral valve is normal in structure and function. VitalsHeight Weight BSA (Calculated - sq m) BP Pulse 60 220lb ? ?114/63 81 [facility] WITH [id number] 11:09:20 Test Item Value Reference Range Interpretation Comments WBC (test code = See_Comment H [Automated 7390-2) message] The system which generated this result transmit britney reference range : 4.30 - 11.10 10*3/?L. The reference range was not used to interpret this result as normal/abnormal . RBC (test code = See_Comment L [Automated 749-8) message] The system which generated this result [...] RDW-SD (test code = 46.3 fL 39.0-49.9 61727-5) RDW-CV (test code = 14.5 % 12.0-15.5 788-0) PLT (test code = See_Comment [Automated 777-3) message] The system which generated this result transmit britney reference range : 166 - 358 10*3/ ?L. The reference range was not u sed to interpret th is result as normal/abnormal . MPV (test code = 9.9 fL 9.5-12.9 96007-9) NRBC/100 WBC (test See_Comment [Automat ed code = 6454907389) message] The system which generated this result transmit britney reference range : 0.0 - 10.0 /100 WBCs. The reference range was not used to interpret this result as normal/abnormal . NRBC x10^3 (test code <0.01 See_Comment [Auto mated = 9195424940) message] The system which generated this result transmit britney reference range : 10*3/?L. The reference range was not used to interpret this result as normal/abnormal . GRAN MAT (NEUT) % 89.9 % (test code = 770-8) IMM GRAN % (test code 2.90 % = 8897921666) LYMPH % (test code = 4.2 % 736-9) MONO % (test code = 2.9 % 5905-5) EOS % (test code = 0.0 % 713-8) BASO % (test code = 0.1 % 706-2) GRAN MAT x10^3(ANC) 14.51 10*3/uL 1.88-7.09 H (test code = 8892537108) IMM GRAN x10^3 (test 0.46 10*3/uL 0.00-0.06 H code = 3542686627) LYMPH x10^3 (test code 0.67 10*3/uL 1.32-3.29 L = 731-0) MONO x10^3 (test code 0.47 10*3/uL 0.33-0.92 = 742-7) EOS x10^3 (test code = <0.03 0.03-0.39 L 711-2) BASO x10^3 (test code <0.03 0.01-0.07 = 704-7) TOXIC CHANGES (test Present A code = 803-7) Lab Interpretation Abnormal (test code = 19233-2) [facility] WITH [id number] 11:09:20 Test Item Value Reference Range Interpretation [...] RDW-SD (test code = 46.3 fL 39.0-49.9 14837-9) RDW-CV (test code = 14.5 % 12.0-15.5 788-0) PLT (test code = See_Comment [Automated 777-3) message] The system which generated this result transmit britney reference range : 166 - 358 10*3/ ?L. The reference range was not u sed to interpret th is result as normal/abnormal . MPV (test code = 9.9 fL 9.5-12.9 43745-2) NRBC/100 WBC (test See_Comment [Automat ed code = 0630716186) message] The system which generated this result transmit britney reference range : 0.0 - 10.0 /100 WBCs. The reference range was not used to interpret this result as normal/abnormal . NRBC x10^3 (test code <0.01 See_Comment [Auto mated = 7572275107) message] The system which generated this result transmit britney reference range : 10*3/?L. The reference range was not used to interpret this result as normal/abnormal . GRAN MAT (NEUT) % 89.9 % (test code = 770-8) IMM GRAN % (test code 2.90 % = 0172255310) LYMPH % (test code = 4.2 % 736-9) MONO % (test code = 2.9 % 5905-5) EOS % (test code = 0.0 % 713-8) BASO % (test code = 0.1 % 706-2) GRAN MAT x10^3(ANC) 14.51 10*3/uL 1.88-7.09 H (test code = 3540970217) IMM GRAN x10^3 (test 0.46 10*3/uL 0.00-0.06 H code = 1358390481) LYMPH x10^3 (test code 0.67 10*3/uL 1.32-3.29 L = 731-0) MONO x10^3 (test code 0.47 10*3/uL 0.33-0.92 = 742-7) EOS x10^3 (test code = <0.03 0.03-0.39 L 711-2) BASO x10^3 (test code <0.03 0.01-0.07 = 704-7) TOXIC CHANGES (test Present A code = 803-7) Lab Interpretation Abnormal (test code = 86991-1) [facility] (NA, K, CL, CO2, GLUCOSE, BUN, CREATININE, CA)2021-10-20 10:55:22 Test Item Value Reference Range Interpretation Comments NA (test code = 136 mmol/L 135-145 6997591978) K (test code = 4.1 mmol/L 3.5-5.0 1535894499) CL (test code = 108 mmol/L 98-108 8656494910) CO2 TOTAL (test code = 25 mmol/L 23-31 9339717665) AGAP (test code = 2-16 0450254445) BUN (test code = 23 mg/dL 7-23 1555567942) GLUCOSE (test code = 134 mg/dL 70-110 H 6892025544) CREATININE (test code = 0.67 mg/dL 0.50-1.04 1912190448) CALCIUM (test code = 7.5 mg/dL 8.6-10.6 L 6336366810) eGFR (test code = mL/min/1.73m2 3256582951) LUCILLE (test code = LUCILLE) Association of [...] tests). Lab Interpretation Abnormal (test code = 54514-8) [facility] METABOLIC PANEL (NA, K, CL, CO2, GLUCOSE, BUN, CREATININE, CA)2021-10-20 10:55:22 Test Item Value Reference Range Interpretation Comments NA (test code = 136 mmol/L 135-145 6130062570) K (test code = 4.1 mmol/L 3.5-5.0 6360931549) CL (test code = 108 mmol/L 98-108 2525774076) CO2 TOTAL (test code = 25 mmol/L 23-31 6733546881) AGAP (test code = 2-16 4159956710) BUN (test code = 23 mg/dL 7-23 2489206340) GLUCOSE (test code = 134 mg/dL 70-110 H 6057120470) CREATININE (test code = 0.67 mg/dL 0.50-1.04 0155730324) CALCIUM (test code = 7.5 mg/dL 8.6-10.6 L 4096085807) eGFR (test code = mL/min/1.73m2 5481662315) LUCILLE (test code = LUCILLE) Association of [...] tests). Lab Interpretation Abnormal (test code = 82290-8) [facility] [id number] 21:49:45 Test Item Value Reference Range Interpretation Comments ANTI-DSDNA (test code See_Comment [Auto mated = 3572459503) message] The system which generated this result transmit britney reference range : 0.0 - 4.0 IU/mL . The reference range was not u sed to interpret th is result as normal/abnormal . LUCILLE (test code = LUCILLE) Negative ? ?< or = 4 IU/mLPositive ? ? ?> or = 10 IU/mLIndetermin ate ?5-9 IU/mL Lab Interpretation Normal (test code = 39321-1) [facility] [id number] 21:49:45 Test Item Value Reference Range Interpretation Comments ANTI-DSDNA (test code See_Comment [Auto mated = 6826393798) message] The system which generated this result transmit britney reference range : 0.0 - 4.0 IU/mL . The reference range was not u sed to interpret th is result as normal/abnormal . LUCILLE (test code = LUCILLE) Negative ? ?< or = 4 IU/mLPositive ? ? ?> or = 10 IU/mLIndetermin ate ?5-9 IU/mL Lab Interpretation Normal (test code = 74551-8) [facility] ResourcesRHEUMAID [id number] 21:43:06 Test Item Value Reference Range Interpretation Comments RF (test code = <20 See_Comment [Automated message] 7068514895) The system [employer] generated this result transmitted ref erence range: <20 IU/m L. The reference range was not used to int erpret this result as normal/abnormal . Lab Interpretation (test Normal code = 84251-2) [id number] 21:43:06 Test Item Value Reference Range Interpretation Comments RF (test code = <20 See_Comment [Automated message] 4241541783) The system [employer] generated this result transmitted ref erence range: <20 IU/m L. The reference range was not used to int erpret this result as normal/abnormal . Lab Interpretation (test Normal code = 31153-4) [facility] Resources[facility]CLE[facility] ANTIBODY [id number] 20:22:55 Test Item Value Reference Range Interpretation Comments SHIRA Titer by IFA <=1:80 (test code = 3020221440) SHIRA Pattern (test SHIRA screen was positive code = 5256992446) at the 1:80 dilution but with low [...] specimen will be held for 7 days. [facility] ANT[facility]ODY [id number] 20:22:55 Test Item Value Reference Range Interpretation Comments SHIRA Titer by IFA <=1:80 (test code = 7983938178) SHIRA Pattern (test SHIRA screen was positive code = 6520592581) at the 1:80 dilution but with low [...] specimen will be held for 7 days. [facility] ResourcesANCA [id number] 18:12:04 Test Item Value Reference Range Interpretation Comments Myeloperoxidase (MPO) Negative Negative Antibodies, IgG Interpretation (test code = 63982-2) Proteinase 3 (PR3) Negative Negative Antibodies, IgG Interpretation (test code = 17959-8) Myeloperoxidase (MPO) <0.3 See_Comment [Auto mated Antibodies, IgG (test messag e] The code = 2311286164) system [facility] generated this result transmitted reference range : <=3.5 U/mL. The reference range was not used to interpret this result as normal/abnormal . Proteinase 3 (PR3) <0.7 See_Comment [Automat ed Antibodies, IgG (test messag e] The code = 0504585718) system [facility] generated this result transmitted reference [...] weeks. Lab Interpretation Normal (test code = 37749-4) [facility] ResourcesANCA [id number] 18:12:04 Test Item Value Reference Range Interpretation Comments Myeloperoxidase (MPO) Negative Negative Antibodies, IgG Interpretation (test code = 12788-2) Proteinase 3 (PR3) Negative Negative Antibodies, IgG Interpretation (test code = 40140-5) Myeloperoxidase (MPO) <0.3 See_Comment [Auto mated Antibodies, IgG (test messag e] The code = 8526825119) system [facility] generated this result transmitted reference range : <=3.5 U/mL. The reference range was not used to interpret this result as normal/abnormal . Proteinase 3 (PR3) <0.7 See_Comment [Automat ed Antibodies, IgG (test messag e] The code = 5723953700) system [facility] generated this result transmitted reference range : <=2.0 U/mL. The reference range was not used to interpret this result as normal/abnormal . LUCILLE (test code = LUCILLE) Test ?Unit ? Negative ? ? ? Equivocal ? Positive Molyl MPOs ? ? ? U/ml ? <3.5 ? 3.5-5.0 ? >5 Molly PR3s ? ? ? U/ml ? <2.0 ? 2.0-3.0 ? >3.0 In case of equivocal results, we recommend to retest the patient after 8 - 12 weeks. Lab Interpretation Normal (test code = 68450-9) [facility] Test Item Value Reference Range Interpretation Comments MAGNESIUM (test code = 4563478544) 2.9 mg/dL 1.7-2.4 H Lab Interpretation (test code = Abnormal 59992-7) [facility] 10:47:40 Test Item Value Reference Range Interpretation Comments MAGNESIUM (test code = 5394436855) 2.9 mg/dL 1.7-2.4 H Lab Interpretation (test code = Abnormal 87850-8) [facility] WITH [id number] 09:31:49 Test Item Value Reference Range Interpretation [...] RDW-SD (test code = 45.5 fL 39.0-49.9 63635-1) RDW-CV (test code = 14.4 % 12.0-15.5 788-0) PLT (test code = See_Comment [Automated 777-3) message] The system which generated this result transmit britney reference range : 166 - 358 10*3/ ?L. The reference range was not u sed to interpret th is result as normal/abnormal . MPV (test code = 10.0 fL 9.5-12.9 50839-0) NRBC/100 WBC (test See_Comment [Automat ed code = 3252157032) message] The system which generated this result transmit britney reference range : 0.0 - 10.0 /100 WBCs. The reference range was not used to interpret this result as normal/abnormal . NRBC x10^3 (test code <0.01 See_Comment [Auto mated = 3058961530) message] The system which generated this result transmit britney reference range : 10*3/?L. The reference range was not used to interpret this result as normal/abnormal . GRAN MAT (NEUT) % 93.4 % (test code = 770-8) IMM GRAN % (test code 1.50 % = 8029870811) LYMPH % (test code = 2.4 % 736-9) MONO % (test code = 2.6 % 5905-5) EOS % (test code = 0.0 % 713-8) BASO % (test code = 0.1 % 706-2) GRAN MAT x10^3(ANC) 17.74 10*3/uL 1.88-7.09 H (test code = 0310966526) IMM GRAN x10^3 (test 0.28 10*3/uL 0.00-0.06 H code = 5149037972) LYMPH x10^3 (test code 0.46 10*3/uL 1.32-3.29 L = 731-0) MONO x10^3 (test code 0.50 10*3/uL 0.33-0.92 = 742-7) EOS x10^3 (test code = <0.03 0.03-0.39 L 711-2) BASO x10^3 (test code <0.03 0.01-0.07 = 704-7) TOXIC CHANGES (test Present A code = 803-7) Lab Interpretation Abnormal (test code = 33416-0) [facility] WITH [id number] 09:31:49 Test Item Value Reference Range Interpretation [...] RDW-SD (test code = 45.5 fL 39.0-49.9 09904-3) RDW-CV (test code = 14.4 % 12.0-15.5 788-0) PLT (test code = See_Comment [Automated 777-3) message] The system which generated this result transmit britney reference range : 166 - 358 10*3/ ?L. The reference range was not u sed to interpret th is result as normal/abnormal . MPV (test code = 10.0 fL 9.5-12.9 00202-9) NRBC/100 WBC (test See_Comment [Automat ed code = 1529160530) message] The system which generated this result transmit britney reference range : 0.0 - 10.0 /100 WBCs. The reference range was not used to interpret this result as normal/abnormal . NRBC x10^3 (test code <0.01 See_Comment [Auto mated = 9198266274) message] The system which generated this result transmit britney reference range : 10*3/?L. The reference range was not used to interpret this result as normal/abnormal . GRAN MAT (NEUT) % 93.4 % (test code = 770-8) IMM GRAN % (test code 1.50 % = 7272076295) LYMPH % (test code = 2.4 % 736-9) MONO % (test code = 2.6 % 5905-5) EOS % (test code = 0.0 % 713-8) BASO % (test code = 0.1 % 706-2) GRAN MAT x10^3(ANC) 17.74 10*3/uL 1.88-7.09 H (test code = 1250798241) IMM GRAN x10^3 (test 0.28 10*3/uL 0.00-0.06 H code = 7569411226) LYMPH x10^3 (test code 0.46 10*3/uL 1.32-3.29 L = 731-0) MONO x10^3 (test code 0.50 10*3/uL 0.33-0.92 = 742-7) EOS x10^3 (test code = <0.03 0.03-0.39 L 711-2) BASO x10^3 (test code <0.03 0.01-0.07 = 704-7) TOXIC CHANGES (test Present A code = 803-7) Lab Interpretation Abnormal (test code = 17002-1) [facility] METABOLIC PANEL (NA, K, CL, CO2, GLUCOSE, BUN, CREATININE, CA)2021-10-19 09:25:48 Test Item Value Reference Range Interpretation Comments NA (test code = 144 mmol/L 135-145 3706399298) K (test code = 4.5 mmol/L 3.5-5.0 9636158214) CL (test code = 111 mmol/L 98-108 H 1553383488) CO2 TOTAL (test code = 27 mmol/L 23-31 1003668508) AGAP (test code = 2-16 0933835873) BUN (test code = 30 mg/dL 7-23 H 6387784404) GLUCOSE (test code = 159 mg/dL 70-110 H 1527428057) CREATININE (test code = 0.81 mg/dL 0.50-1.04 8321866455) CALCIUM (test code = 8.2 mg/dL 8.6-10.6 L 6491696978) eGFR (test code = mL/min/1.73m2 9575142758) LUCILLE (test code = LUCILLE) Association of [...] tests). Lab Interpretation Abnormal (test code = 78135-5) [facility] (NA, K, CL, CO2, GLUCOSE, BUN, CREATININE, CA)2021-10-19 09:25:48 Test Item Value Reference Range Interpretation Comments NA (test code = 144 mmol/L 135-145 1004910053) K (test code = 4.5 mmol/L 3.5-5.0 0383614820) CL (test code = 111 mmol/L 98-108 H 0359801177) CO2 TOTAL (test code = 27 mmol/L 23-31 1146753292) AGAP (test code = 2-16 7765983692) BUN (test code = 30 mg/dL 7-23 H 8917669462) GLUCOSE (test code = 159 mg/dL 70-110 H 1096960871) CREATININE (test code = 0.81 mg/dL 0.50-1.04 0905244140) CALCIUM (test code = 8.2 mg/dL 8.6-10.6 L 3441221555) eGFR (test code = mL/min/1.73m2 0570493889) LUCILLE (test code = LUCILLE) Association of [...] tests). Lab Interpretation Abnormal (test code = 30047-5) [facility] GLUCOSE (AUTOMATED)2021-10-19 02:29:39 Test Item Value Reference Range Interpretation Comments POCT GLU (test code = 1981163576) 159 mg/dL 70-110 H Lab Interpretation (test code = Abnormal 16578-0) [facility] GLUCOSE (AUTOMATED)2021-10-19 02:29:39 Test Item Value Reference Range Interpretation Comments POCT GLU (test code = 9792930643) 159 mg/dL 70-110 H Lab Interpretation (test code = Abnormal 38905-6) [facility]CLE[facility] ANT[facility] [id number] 22:06:05 Test Item Value Reference Range Interpretation Comments SHIRA (test code = Positive Negative A 5475300288) LUCILLE (test code = LUCILLE) Negative - No Anti-Nuclear Antibodies detected by IFA.Positive - SHIRA IFA screen performed with a 1:80 dilution in adults and a 1:40 dilution in pediatrics. Any SHIRA "Positive" will have titer performed and reported separately. Lab Interpretation (test Abnormal code = 65971-9) [facility]CLE[facility] [id number] 22:06:05 Test Item Value Reference Range Interpretation Comments SHIRA (test code = Positive Negative A 4479762764) LUCILLE (test code = LUCILLE) Negative - No Anti-Nuclear Antibodies detected by IFA.Positive - SHIRA IFA screen performed with a 1:80 dilution in adults and a 1:40 dilution in pediatrics. Any SHIRA "Positive" will have titer performed and reported separately. Lab Interpretation (test Abnormal code = 16246-2) [facility] ResourcesGLYCOSYLATED HEMOGLOBIN (A1C)2021-10-18 17:16:16 Test Item Value Reference Range Interpretation Comments HGB A1C (test code = 6.0 % 4.0-5.7 H 4548-4) LUCILLE (test code = LUCILLE) Reference RangesNormal: <5.7%Prediabetes: 5.7 - 6.4%Diabetes: > 6.5% Lab Interpretation (test Abnormal code = 77033-0) [facility] ResourcesGLYCOSYLATED HEMOGLOBIN (A1C)2021-10-18 17:16:16 Test Item Value Reference Range Interpretation Comments HGB A1C (test code = 6.0 % 4.0-5.7 H 4548-4) LUCILLE (test code = LUCILLE) Reference RangesNormal: <5.7%Prediabetes: 5.7 - 6.4%Diabetes: > 6.5% Lab Interpretation (test Abnormal code = 05113-8) [facility] WITH [id number] 10:21:29 Test Item Value Reference Range Interpretation [...] RDW-SD (test code = 44.0 fL 39.0-49.9 41984-8) RDW-CV (test code = 14.1 % 12.0-15.5 788-0) PLT (test code = See_Comment [Automated 777-3) message] The system which generated this result transmit britney reference range : 166 - 358 10*3/ ?L. The reference range was not u sed to interpret th is result as normal/abnormal . MPV (test code = 10.5 fL 9.5-12.9 87363-6) NRBC/100 WBC (test See_Comment [Automat ed code = 3663871400) message] The system which generated this result transmit britney reference range : 0.0 - 10.0 /100 WBCs. The reference range was not used to interpret this result as normal/abnormal . NRBC x10^3 (test code <0.01 See_Comment [Auto mated = 1679863913) message] The system which generated this result transmit britney reference range : 10*3/?L. The reference range was not used to interpret this result as normal/abnormal . GRAN MAT (NEUT) % 94.3 % (test code = 770-8) IMM GRAN % (test code 1.00 % = 9368010301) LYMPH % (test code = 2.1 % 736-9) MONO % (test code = 2.5 % 5905-5) EOS % (test code = 0.0 % 713-8) BASO % (test code = 0.1 % 706-2) GRAN MAT x10^3(ANC) 18.69 10*3/uL 1.88-7.09 H (test code = 8275940208) IMM GRAN x10^3 (test 0.20 10*3/uL 0.00-0.06 H code = 2531797849) LYMPH x10^3 (test code 0.42 10*3/uL 1.32-3.29 L = 731-0) MONO x10^3 (test code 0.50 10*3/uL 0.33-0.92 = 742-7) EOS x10^3 (test code = <0.03 0.03-0.39 L 711-2) BASO x10^3 (test code <0.03 0.01-0.07 = 704-7) TOXIC CHANGES (test Present A code = 803-7) Lab Interpretation Abnormal (test code = 03713-5) [facility] WITH [id number] 10:21:29 Test Item Value Reference Range Interpretation [...] RDW-SD (test code = 44.0 fL 39.0-49.9 34711-4) RDW-CV (test code = 14.1 % 12.0-15.5 788-0) PLT (test code = See_Comment [Automated 777-3) message] The system which generated this result transmit britney reference range : 166 - 358 10*3/ ?L. The reference range was not u sed to interpret th is result as normal/abnormal . MPV (test code = 10.5 fL 9.5-12.9 77470-4) NRBC/100 WBC (test See_Comment [Automat ed code = 9483052727) message] The system which generated this result transmit britney reference range : 0.0 - 10.0 /100 WBCs. The reference range was not used to interpret this result as normal/abnormal . NRBC x10^3 (test code <0.01 See_Comment [Auto mated = 9818541659) message] The system which generated this result transmit britney reference range : 10*3/?L. The reference range was not used to interpret this result as normal/abnormal . GRAN MAT (NEUT) % 94.3 % (test code = 770-8) IMM GRAN % (test code 1.00 % = 6619097085) LYMPH % (test code = 2.1 % 736-9) MONO % (test code = 2.5 % 5905-5) EOS % (test code = 0.0 % 713-8) BASO % (test code = 0.1 % 706-2) GRAN MAT x10^3(ANC) 18.69 10*3/uL 1.88-7.09 H (test code = 1278099364) IMM GRAN x10^3 (test 0.20 10*3/uL 0.00-0.06 H code = 1647274406) LYMPH x10^3 (test code 0.42 10*3/uL 1.32-3.29 L = 731-0) MONO x10^3 (test code 0.50 10*3/uL 0.33-0.92 = 742-7) EOS x10^3 (test code = <0.03 0.03-0.39 L 711-2) BASO x10^3 (test code <0.03 0.01-0.07 = 704-7) TOXIC CHANGES (test Present A code = 803-7) Lab Interpretation Abnormal (test code = 85769-7) [facility] METABOLIC PANEL (NA, K, CL, CO2, GLUCOSE, BUN, CREATININE, CA)2021-10-18 09:49:57 Test Item Value Reference Range Interpretation Comments NA (test code = 141 mmol/L 135-145 3001409468) K (test code = 4.9 mmol/L 3.5-5.0 0730886912) CL (test code = 107 mmol/L 98-108 9448949780) CO2 TOTAL (test code = 26 mmol/L 23-31 3006986010) AGAP (test code = 2-16 9300733847) BUN (test code = 30 mg/dL 7-23 H 9057605847) GLUCOSE (test code = 166 mg/dL 70-110 H 5832682894) CREATININE (test code = 0.76 mg/dL 0.50-1.04 4473137035) CALCIUM (test code = 8.2 mg/dL 8.6-10.6 L 7780973236) eGFR (test code = mL/min/1.73m2 4772826890) LUCILLE (test code = LUCILLE) Association of [...] tests). Lab Interpretation Abnormal (test code = 97623-3) [facility]MAG[facility]2022-02-15 09:49:57 Test Item Value Reference Range Interpretation Comments MAGNESIUM (test code = 2919842639) 3.0 mg/dL 1.7-2.4 H Lab Interpretation (test code = Abnormal 56154-1) [facility]PHOSPHORUS2022-02-15 09:49:57 Test Item Value Reference Range Interpretation Comments PHOSPHORUS (test code = 8375762244) 4.0 mg/dL 2.5-5.0 Lab Interpretation (test code = Normal 03161-3) [facility]ABOL[facility] (NA, K, CL, CO2, GLUCOSE, BUN, CREATININE, CA)2021-10-18 09:49:57 Test Item Value Reference Range Interpretation Comments NA (test code = 141 mmol/L 135-145 5786529296) K (test code = 4.9 mmol/L 3.5-5.0 3966692470) CL (test code = 107 mmol/L 98-108 2256041616) CO2 TOTAL (test code = 26 mmol/L 23-31 1242227521) AGAP (test code = 2-16 7387566280) BUN (test code = 30 mg/dL 7-23 H 8287975960) GLUCOSE (test code = 166 mg/dL 70-110 H 4967299163) CREATININE (test code = 0.76 mg/dL 0.50-1.04 5935259377) CALCIUM (test code = 8.2 mg/dL 8.6-10.6 L 0702097109) eGFR (test code = mL/min/1.73m2 6845038282) LUCILLE (test code = LUCILLE) Association of [...] tests). Lab Interpretation Abnormal (test code = 78991-1) [facility]2022-02-15 09:49:57 Test Item Value Reference Range Interpretation Comments MAGNESIUM (test code = 4875233582) 3.0 mg/dL 1.7-2.4 H Lab Interpretation (test code = Abnormal 22396-8) [facility]PHOS[facility]ORUS2022-02-15 09:49:57 Test Item Value Reference Range Interpretation Comments PHOSPHORUS (test code = 1002404468) 4.0 mg/dL 2.5-5.0 Lab Interpretation (test code = Normal 14421-0) [facility] ResourcesHIV [facility]/2 AG-AB WITH [id number] 02:31:06 Test Item Value Reference Range Interpretation Comments HIV Negative Negative Semi-quantitative (test code = 52924-4) LUCILLE (test code = Non-reactive for HIV-1 LUCILLE) antigen and HIV-1/HIV-2 antibodies. ?No laboratory evidence of HIV infection. ?Repeat in 2-4 weeks if acute HIV infection is suspected. [facility]HIV [facility]/2 AG-AB WITH [id number] 02:31:06 Test Item Value Reference Range Interpretation Comments HIV Negative Negative Semi-quantitative (test code = 36961-8) LUCILLE (test code = Non-reactive for HIV-1 LUCILLE) antigen and HIV-1/HIV-2 antibodies. ?No laboratory evidence of HIV infection. ?Repeat in 2-4 weeks if acute HIV infection is suspected. [facility] (NA, K, CL, CO2, GLUCOSE, BUN, CREATININE, CA)2021-10-18 01:11:26 Test Item Value Reference Range Interpretation Comments NA (test code = 141 mmol/L 135-145 [id number]) K (test code = 4.6 mmol/L 3.5-5.0 [id number]) CL (test code = 106 mmol/L 98-108 [id number]) CO2 TOTAL (test code = 26 mmol/L 23-31 [id number]) AGAP (test code = 2-16 [id number]) BUN (test code = 28 mg/dL 7-23 H [id number]) GLUCOSE (test code = 180 mg/dL 70-110 H [id number]) CREATININE (test code = 0.82 mg/dL 0.50-1.04 8447854765) CALCIUM (test code = 8.3 mg/dL 8.6-10.6 L 6085662485) eGFR (test code = mL/min/1.73m2 3030597394) LUCILLE (test code = LCUILLE) Association of Glomerular Filtration Rate (GFR) and [...] tests). Lab Interpretation Abnormal (test code = 84736-1) [facility] METABOLIC PANEL (NA, K, CL, CO2, GLUCOSE, BUN, CREATININE, CA)2021-10-18 01:11:26 Test Item Value Reference Range Interpretation Comments NA (test code = 141 mmol/L 135-145 8412255600) K (test code = 4.6 mmol/L 3.5-5.0 3967741014) CL (test code = 106 mmol/L 98-108 5907184756) CO2 TOTAL (test code = 26 mmol/L 23-31 8202866801) AGAP (test code = 2-16 0152636635) BUN (test code = 28 mg/dL 7-23 H 2871847712) GLUCOSE (test code = 180 mg/dL 70-110 H 2641661340) CREATININE (test code = 0.82 mg/dL 0.50-1.04 0178007931) CALCIUM (test code = 8.3 mg/dL 8.6-10.6 L 1720976876) eGFR (test code = mL/min/1.73m2 0641596934) LUCILLE (test code = LUCILLE) Association of [...] tests). Lab Interpretation Abnormal (test code = 12594-5) [facility] [id number] 22:06:03 Test Item Value Reference Range Interpretation Comments NT-proBNP (test code 250 pg/mL See_Comment H [Autom ated = 6623632556) message] The system which generated this result transmitted reference range : <=125. The reference range was not used to interpret this result as normal/abnormal . LUCILLE (test code = LUCILLE) Biotin has been reported to cause a negative bias, interpret results relative to patient's use of biotin. Lab Interpretation Abnormal (test code = 14770-2) [facility] [id number] 22:06:03 Test Item Value Reference Range Interpretation Comments NT-proBNP (test code 250 pg/mL See_Comment H [Autom ated = 0444664275) message] The system which generated this result transmitted reference range : <=125. The reference range was not used to interpret this result as normal/abnormal . LUCILLE (test code = LUCILLE) Biotin has been reported to cause a negative bias, interpret results relative to patient's use of biotin. Lab Interpretation Abnormal (test code = 18514-8) [facility]COOX+NA+K+GLU+CA2+2021-10-17 21:42:22 Test Item Value Reference Range Interpretation Comments PH (test code = 2) 7.35-7.45 PCO2 (test code = See_Comment [Automate d message] 7596831918) The system [employer] generated this result transmit britney reference range : 35 - 45 mmHg. The reference range was not used to interpret this result as normal/abnormal . PO2 (test code = See_Comment H [Automated message] 0981920274) The system [employer] generated this result transmit britney reference range : 80 - 100 mmHg. The reference range was not used to interpret this result as normal/abnormal . HCO3 (test code = See_Comment [Automate d message] 3066822154) The system [employer] generated this result transmit britney reference range : 22 - 26 mEq/L. The reference range was not used to interpret this result as normal/abnormal . BE (test code = See_Comment [Automated message] 7455325773) The system [employer] generated this result transmit britney reference range : -3.0 - 3.0 mEq/ L. The reference r nicholas was not used to interpret this result as normal/abnormal . THB (test code = 13.0 g/dL 12.0-16.0 5861538894) %O2HB (test code = 98.9 % 94.0-99.0 7697145789) %COHB ART (test code = 0.3 % 0.0-1.5 0377972234) %METHB ART (test code = 0.0 % 0.4-1.5 L 6653707900) VOL%O2 ART (test code = 18.5 % 15.0-23.0 3913435964) NA (test code = 139 mmol/L 135-145 9143991580) K+ (test code = 4.6 mmol/L 3.5-5.0 4435520530) AC CA IONZ (test code = 4.50 mg/dL 4.50-5.30 6082970094) GLUCOSE (test code = 166 mg/dL 70-110 H 4097796932) Lab Interpretation Abnormal (test code = 14597-3) [facility]X+NA+K+GLU+CA2+2021-10-17 21:42:22 Test Item Value Reference Range Interpretation Comments PH (test code = 2) 7.35-7.45 PCO2 (test code = See_Comment [Automate d message] 7692129434) The system [employer] generated this result transmit britney reference range : 35 - 45 mmHg. The reference range was not used to interpret this result as normal/abnormal . PO2 (test code = See_Comment H [Automated message] 2208089588) The system [employer] generated this result transmit britney reference range : 80 - 100 mmHg. The reference range was not used to interpret this result as normal/abnormal . HCO3 (test code = See_Comment [Automate d message] 2131949843) The system [employer] generated this result transmit britney reference range : 22 - 26 mEq/L. The reference range was not used to interpret this result as normal/abnormal . BE (test code = See_Comment [Automated message] 7167149055) The system [employer] generated this result transmit britney reference range : -3.0 - 3.0 mEq/ L. The reference r nicholas was not used to interpret this result as normal/abnormal . THB (test code = 13.0 g/dL 12.0-16.0 5460789334) %O2HB (test code = 98.9 % 94.0-99.0 2496837672) %COHB ART (test code = 0.3 % 0.0-1.5 6960898452) %METHB ART (test code = 0.0 % 0.4-1.5 L 1258380481) VOL%O2 ART (test code = 18.5 % 15.0-23.0 2058219387) NA (test code = 139 mmol/L 135-145 5929694894) K+ (test code = 4.6 mmol/L 3.5-5.0 7279175422) AC CA IONZ (test code = 4.50 mg/dL 4.50-5.30 2958532347) GLUCOSE (test code = 166 mg/dL 70-110 H 1157304143) Lab Interpretation Abnormal (test code = 59023-2) [facility] WITH [id number] 11:01:03 Test Item Value Reference Range Interpretation Comments WBC (test code = See_Comment H [Automated 0060-2) message] The system which generated this result [...] RDW-SD (test code = 44.5 fL 39.0-49.9 18511-6) RDW-CV (test code = 14.1 % 12.0-15.5 788-0) PLT (test code = See_Comment [Automated 357-3) message] The system which generated this result transmit britney reference range : 166 - 358 10*3/ ?L. The reference range was not u sed to interpret th is result as normal/abnormal . MPV (test code = 11.0 fL 9.5-12.9 06309-4) NRBC/100 WBC (test See_Comment [Automat ed code = 8953981122) message] The system which generated this result transmit britney reference range : 0.0 - 10.0 /100 WBCs. The reference range was not used to interpret this result as normal/abnormal . NRBC x10^3 (test code <0.01 See_Comment [Auto mated = 5610869636) message] The system which generated this result transmit britney reference range : 10*3/?L. The reference range was not used to interpret this result as normal/abnormal . GRAN MAT (NEUT) % 91.6 % (test code = 770-8) IMM GRAN % (test code 1.40 % = 5070555846) LYMPH % (test code = 5.5 % 736-9) MONO % (test code = 1.4 % 5905-5) EOS % (test code = 0.0 % 713-8) BASO % (test code = 0.1 % 706-2) GRAN MAT x10^3(ANC) 17.75 10*3/uL 1.88-7.09 H (test code = 4158762294) IMM GRAN x10^3 (test 0.27 10*3/uL 0.00-0.06 H code = 8500735778) LYMPH x10^3 (test code 1.06 10*3/uL 1.32-3.29 L = 731-0) MONO x10^3 (test code 0.28 10*3/uL 0.33-0.92 L = 742-7) EOS x10^3 (test code = <0.03 0.03-0.39 L 711-2) BASO x10^3 (test code <0.03 0.01-0.07 = 704-7) TOXIC CHANGES (test Present A code = 803-7) Lab Interpretation Abnormal (test code = 10557-8) [facility] WITH [id number] 11:01:03 Test Item Value Reference Range Interpretation [...] RDW-SD (test code = 44.5 fL 39.0-49.9 14115-9) RDW-CV (test code = 14.1 % 12.0-15.5 788-0) PLT (test code = See_Comment [Automated 777-3) message] The system which generated this result transmit britney reference range : 166 - 358 10*3/ ?L. The reference range was not u sed to interpret th is result as normal/abnormal . MPV (test code = 11.0 fL 9.5-12.9 09894-9) NRBC/100 WBC (test See_Comment [Automat ed code = 2981982263) message] The system which generated this result transmit britney reference range : 0.0 - 10.0 /100 WBCs. The reference range was not used to interpret this result as normal/abnormal . NRBC x10^3 (test code <0.01 See_Comment [Auto mated = 1967475085) message] The system which generated this result transmit britney reference range : 10*3/?L. The reference range was not used to interpret this result as normal/abnormal . GRAN MAT (NEUT) % 91.6 % (test code = 770-8) IMM GRAN % (test code 1.40 % = 1585232368) LYMPH % (test code = 5.5 % 736-9) MONO % (test code = 1.4 % 5905-5) EOS % (test code = 0.0 % 713-8) BASO % (test code = 0.1 % 706-2) GRAN MAT x10^3(ANC) 17.75 10*3/uL 1.88-7.09 H (test code = 1720444218) IMM GRAN x10^3 (test 0.27 10*3/uL 0.00-0.06 H code = 3250761336) LYMPH x10^3 (test code 1.06 10*3/uL 1.32-3.29 L = 731-0) MONO x10^3 (test code 0.28 10*3/uL 0.33-0.92 L = 742-7) EOS x10^3 (test code = <0.03 0.03-0.39 L 711-2) BASO x10^3 (test code <0.03 0.01-0.07 = 704-7) TOXIC CHANGES (test Present A code = 803-7) Lab Interpretation Abnormal (test code = 17347-2) [facility] METABOLIC PANEL (NA, K, CL, CO2, GLUCOSE, BUN, CREATININE, CA)2021-10-17 10:54:32 Test Item Value Reference Range Interpretation Comments NA (test code = 135 mmol/L 135-145 4111099443) K (test code = 5.2 mmol/L 3.5-5.0 H Slight 9613463111) hemolysis CL (test code = 101 mmol/L 98-108 5433167436) CO2 TOTAL (test code 27 mmol/L 23-31 = 9159893174) AGAP (test code = 2-16 5198363454) BUN (test code = 21 mg/dL 7-23 Slight 9959621039) hemolysis GLUCOSE (test code = 153 mg/dL 70-110 H 5197637761) CREATININE (test code 0.71 mg/dL 0.50-1.04 = 2336887269) CALCIUM (test code = 8.3 mg/dL 8.6-10.6 L 1535140740) eGFR (test code = mL/min/1.73m2 9055626344) LUCILLE (test code = LUCILLE) Association of [...] tests). Lab Interpretation Abnormal (test code = 42312-4) [facility]-14 10:54:32 Test Item Value Reference Range Interpretation Comments MAGNESIUM (test code = 2856026433) 2.2 mg/dL 1.7-2.4 Lab Interpretation (test code = Normal 43468-7) [facility]2022-[facility]-14 10:54:32 Test Item Value Reference Range Interpretation Comments PHOSPHORUS (test code = 5821305696) 5.9 mg/dL 2.5-5.0 H Lab Interpretation (test code = Abnormal 63793-4) [facility] (NA, K, CL, CO2, GLUCOSE, BUN, CREATININE, CA)2021-10-17 10:54:32 Test Item Value Reference Range Interpretation Comments NA (test code = 135 mmol/L 135-145 6189206466) K (test code = 5.2 mmol/L 3.5-5.0 H Slight 9693076142) hemolysis CL (test code = 101 mmol/L 98-108 8130199796) CO2 TOTAL (test code 27 mmol/L 23-31 = 9676125802) AGAP (test code = 2-16 8232884494) BUN (test code = 21 mg/dL 7-23 Slight 4565728781) hemolysis GLUCOSE (test code = 153 mg/dL 70-110 H 6555327838) CREATININE (test code 0.71 mg/dL 0.50-1.04 = 2818440803) CALCIUM (test code = 8.3 mg/dL 8.6-10.6 L 8758351822) eGFR (test code = mL/min/1.73m2 9731365968) LUCILLE (test code = LUCILLE) Association of [...] tests). Lab Interpretation Abnormal (test code = 71849-8) [facility]2022-02-14 10:54:32 Test Item Value Reference Range Interpretation Comments MAGNESIUM (test code = 0226522330) 2.2 mg/dL 1.7-2.4 Lab Interpretation (test code = Normal 96636-9) [facility]2022-02-14 10:54:32 Test Item Value Reference Range Interpretation Comments PHOSPHORUS (test code = 1898631175) 5.9 mg/dL 2.5-5.0 H Lab Interpretation (test code = Abnormal 26548-6) [facility] [id number] 10:53:06 Test Item Value Reference Range Interpretation Comments ESR (test code = See_Comment H [Automated message] 9842267227) The system [employer] generated this result transmitted ref erence range: 0 - 20 m m/HR. The reference r nicholas was not used to interpret this result as normal/abnor mal. Lab Interpretation (test Abnormal code = 51290-2) [facility]2022-02-14 10:53:06 Test Item Value Reference Range Interpretation Comments ESR (test code = See_Comment H [Automated message] 4308323472) The system [employer] generated this result transmitted ref erence range: 0 - 20 m m/HR. The reference r nicholas was not used to interpret this result as normal/abnor mal. Lab Interpretation (test Abnormal code = 59509-8) [facility]2022-02-13 11:13:05 Test Item Value Reference Range Interpretation Comments MAGNESIUM (test code = 2727886273) 2.3 mg/dL 1.7-2.4 Lab Interpretation (test code = Normal 41449-0) [facility]2022-02-13 11:13:05 Test Item Value Reference Range Interpretation Comments PHOSPHORUS (test code = 8795164879) 3.4 mg/dL 2.5-5.0 Lab Interpretation (test code = Normal 03005-9) [facility]2022-02-13 11:13:05 Test Item Value Reference Range Interpretation Comments MAGNESIUM (test code = 7914348064) 2.3 mg/dL 1.7-2.4 Lab Interpretation (test code = Normal 01528-6) [facility]-13 11:13:05 Test Item Value Reference Range Interpretation Comments PHOSPHORUS (test code = 3605888050) 3.4 mg/dL 2.5-5.0 Lab Interpretation (test code = Normal 03519-9) [facility] (NA, K, CL, CO2, GLUCOSE, BUN, CREATININE, CA)2021-10-16 11:13:04 Test Item Value Reference Range Interpretation Comments NA (test code = 135 mmol/L 135-145 6687402527) K (test code = 4.6 mmol/L 3.5-5.0 8240249597) CL (test code = 102 mmol/L 98-108 5381523403) CO2 TOTAL (test code = 29 mmol/L 23-31 7507276699) AGAP (test code = 2-16 0290164541) BUN (test code = 24 mg/dL 7-23 H 2783693334) GLUCOSE (test code = 90 mg/dL 70-110 3014727635) CREATININE (test code = 0.87 mg/dL 0.50-1.04 1462207794) CALCIUM (test code = 8.0 mg/dL 8.6-10.6 L 1606590317) eGFR (test code = mL/min/1.73m2 7804813340) LUCILLE (test code = LUCILLE) Association of [...] tests). Lab Interpretation Abnormal (test code = 91406-6) [facility] METABOLIC PANEL (NA, K, CL, CO2, GLUCOSE, BUN, CREATININE, CA)2021-10-16 11:13:04 Test Item Value Reference Range Interpretation Comments NA (test code = 135 mmol/L 135-145 7601293771) K (test code = 4.6 mmol/L 3.5-5.0 5878356512) CL (test code = 102 mmol/L 98-108 3722176951) CO2 TOTAL (test code = 29 mmol/L 23-31 4342336027) AGAP (test code = 2-16 9526255248) BUN (test code = 24 mg/dL 7-23 H 4396236491) GLUCOSE (test code = 90 mg/dL 70-110 2473073856) CREATININE (test code = 0.87 mg/dL 0.50-1.04 8533144392) CALCIUM (test code = 8.0 mg/dL 8.6-10.6 L 2432199504) eGFR (test code = mL/min/1.73m2 4977396316) LUCILLE (test code = LUCILLE) Association of [...] tests). Lab Interpretation Abnormal (test code = 45326-0) [facility] + LACTIC [id number] 10:59:55 Test Item Value Reference Range Interpretation Comments PH (test code = 2) 7.35-7.45 PCO2 (test code = See_Comment [Automate d 8092814748) message] The sy stem which generated this result transmitted reference range : 35 - 45 mmHg. The reference range was not used to interpret this result as normal/abnormal . PO2 (test code = See_Comment L [Automated 2631520563) message] The sy stem which generated this result transmitted reference range : 80 - 100 mmHg. The reference range was not used to interpret this result as normal/abnormal . HCO3 (test code = See_Comment H [Automate d 0204542004) message] The sy stem which generated this result transmitted reference range : 22 - 26 mEq/L. The reference range was not used to interpret this result as normal/abnormal . BE (test code = See_Comment [Automated 1443265696) message] The sy stem which generated this result transmitted reference range : -3.0 - 3.0 mEq/ L. The reference r nicholas was not used to interpret this result as normal/abnormal . THB (test code = 13.7 g/dL 12.0-16.0 0088455869) %O2HB (test code = 86.3 % 94.0-99.0 L 3166794751) %COHB ART (test code = 0.1 % 0.0-1.5 7169357435) %METHB ART (test code = 0.1 % 0.4-1.5 L 1070377234) VOL%O2 ART (test code = 16.6 % 15.0-23.0 2702297060) NA (test code = 135 mmol/L 135-145 6608613306) K+ (test code = 4.6 mmol/L 3.5-5.0 7966471349) AC CA IONZ (test code = 4.70 mg/dL 4.50-5.30 6707735539) GLUCOSE (test code = 88 mg/dL 70-110 2347560986) LACTIC ACID (test code 1.41 mmol/L 0.50-2.20 QUES = 8190437422) Lab Interpretation Abnormal (test code = 43088-4) [facility] + LACTIC [id number] 10:59:55 Test Item Value Reference Range Interpretation Comments PH (test code = 2) 7.35-7.45 PCO2 (test code = See_Comment [Automate d 5918941586) message] The sy stem which generated this result transmitted reference range : 35 - 45 mmHg. The reference range was not used to interpret this result as normal/abnormal . PO2 (test code = See_Comment L [Automated 8138713482) message] The sy stem which generated this result transmitted reference range : 80 - 100 mmHg. The reference range was not used to interpret this result as normal/abnormal . HCO3 (test code = See_Comment H [Automate d 3799276932) message] The sy stem which generated this result transmitted reference range : 22 - 26 mEq/L. The reference range was not used to interpret this result as normal/abnormal . BE (test code = See_Comment [Automated 1207323324) message] The sy stem which generated this result transmitted reference range : -3.0 - 3.0 mEq/ L. The reference r nicholas was not used to interpret this result as normal/abnormal . THB (test code = 13.7 g/dL 12.0-16.0 4296286626) %O2HB (test code = 86.3 % 94.0-99.0 L 9596782515) %COHB ART (test code = 0.1 % 0.0-1.5 6208234917) %METHB ART (test code = 0.1 % 0.4-1.5 L 7874720700) VOL%O2 ART (test code = 16.6 % 15.0-23.0 0034550693) NA (test code = 135 mmol/L 135-145 7324834042) K+ (test code = 4.6 mmol/L 3.5-5.0 1621387898) AC CA IONZ (test code = 4.70 mg/dL 4.50-5.30 6826718414) GLUCOSE (test code = 88 mg/dL 70-110 4954347931) LACTIC ACID (test code 1.41 mmol/L 0.50-2.20 QUES = 8971208949) Lab Interpretation Abnormal (test code = 24786-4) [facility] WITH [id number] 10:54:01 Test Item Value Reference Range Interpretation Comments WBC (test code = See_Comment H [Automated 1801-2) message] The system which generated this result transmit britney reference range : 4.30 - 11.10 10*3/?L. The reference range was not used to interpret this result as normal/abnormal . RBC (test code = See_Comment [Automated 699-8) message] The system which generated this result [...] RDW-SD (test code = 47.0 fL 39.0-49.9 18565-3) RDW-CV (test code = 14.6 % 12.0-15.5 788-0) PLT (test code = See_Comment [Automated 777-3) message] The system which generated this result transmit britney reference range : 166 - 358 10*3/ ?L. The reference range was not u sed to interpret th is result as normal/abnormal . MPV (test code = 10.5 fL 9.5-12.9 97594-6) NRBC/100 WBC (test See_Comment [Automat ed code = 7440830434) message] The system which generated this result transmit britney reference range : 0.0 - 10.0 /100 WBCs. The reference range was not used to interpret this result as normal/abnormal . NRBC x10^3 (test code See_Comment [Auto mated = 7422969759) message] The system which generated this result transmit britney reference range : 10*3/?L. The reference range was not used to interpret this result as normal/abnormal . GRAN MAT (NEUT) % 85.6 % (test code = 770-8) IMM GRAN % (test code 1.10 % = 0259951266) LYMPH % (test code = 9.7 % 736-9) MONO % (test code = 3.0 % 5905-5) EOS % (test code = 0.5 % 713-8) BASO % (test code = 0.1 % 706-2) GRAN MAT x10^3(ANC) 12.97 10*3/uL 1.88-7.09 H (test code = 7216532514) IMM GRAN x10^3 (test 0.16 10*3/uL 0.00-0.06 H code = 4832761912) LYMPH x10^3 (test code 1.47 10*3/uL 1.32-3.29 = 731-0) MONO x10^3 (test code 0.45 10*3/uL 0.33-0.92 = 742-7) EOS x10^3 (test code = 0.08 10*3/uL 0.03-0.39 711-2) BASO x10^3 (test code <0.03 0.01-0.07 = 704-7) Lab Interpretation Abnormal (test code = 77914-3) [facility] WITH [id number] 10:54:01 Test Item Value Reference Range Interpretation [...] RDW-SD (test code = 47.0 fL 39.0-49.9 02415-8) RDW-CV (test code = 14.6 % 12.0-15.5 788-0) PLT (test code = See_Comment [Automated 777-3) message] The system which generated this result transmit britney reference range : 166 - 358 10*3/ ?L. The reference range was not u sed to interpret th is result as normal/abnormal . MPV (test code = 10.5 fL 9.5-12.9 12787-1) NRBC/100 WBC (test See_Comment [Automat ed code = 6454442716) message] The system which generated this result transmit britney reference range : 0.0 - 10.0 /100 WBCs. The reference range was not used to interpret this result as normal/abnormal . NRBC x10^3 (test code See_Comment [Auto mated = 0907802266) message] The system which generated this result transmit britney reference range : 10*3/?L. The reference range was not used to interpret this result as normal/abnormal . GRAN MAT (NEUT) % 85.6 % (test code = 770-8) IMM GRAN % (test code 1.10 % = 8161631460) LYMPH % (test code = 9.7 % 736-9) MONO % (test code = 3.0 % 5905-5) EOS % (test code = 0.5 % 713-8) BASO % (test code = 0.1 % 706-2) GRAN MAT x10^3(ANC) 12.97 10*3/uL 1.88-7.09 H (test code = 4995248724) IMM GRAN x10^3 (test 0.16 10*3/uL 0.00-0.06 H code = 9164824168) LYMPH x10^3 (test code 1.47 10*3/uL 1.32-3.29 = 731-0) MONO x10^3 (test code 0.45 10*3/uL 0.33-0.92 = 742-7) EOS x10^3 (test code = 0.08 10*3/uL 0.03-0.39 711-2) BASO x10^3 (test code <0.03 0.01-0.07 = 704-7) Lab Interpretation Abnormal (test code = 78925-4) [facility] [id number] 23:24:07 Test Item Value Reference Range Interpretation Comments CRP (test code = 3418105477) 22.1 mg/dL <1.0 H Lab Interpretation (test code = Abnormal 10690-7) [facility] [id number] 23:24:07 Test Item Value Reference Range Interpretation Comments CRP (test code = 8602171071) 22.1 mg/dL <1.0 H Lab Interpretation (test code = Abnormal 00440-8) [facility] [id number] 23:21:42 Test Item Value Reference Interpretation Comments Range TROPONIN I (test 0.003 ng/mL See_Comment [Automated code = 9437358804) message] The system which generated this result [...] biotin. Lab Interpretation Normal (test code = 27848-2) [facility] [id number] 23:21:42 Test Item Value Reference Interpretation Comments Range TROPONIN I (test 0.003 ng/mL See_Comment [Automated code = 0950609412) message] The system which generated this result [...] biotin. Lab Interpretation Normal (test code = 50711-7) [facility]OLIC PAN[facility] (NA, K, CL, CO2, GLUCOSE, BUN, CREATININE, CA)2021-10-15 23:12:40 Test Item Value Reference Range Interpretation Comments NA (test code = 136 mmol/L 135-145 0919571481) K (test code = 4.8 mmol/L 3.5-5.0 1910095313) CL (test code = 104 mmol/L 98-108 1851760332) CO2 TOTAL (test code = 26 mmol/L 23-31 2921358928) AGAP (test code = 2-16 1910599167) BUN (test code = 22 mg/dL 7-23 4432950278) GLUCOSE (test code = 114 mg/dL 70-110 H 0595551890) CREATININE (test code = 0.77 mg/dL 0.50-1.04 8105926241) CALCIUM (test code = 8.2 mg/dL 8.6-10.6 L 3668711405) eGFR (test code = mL/min/1.73m2 1277467376) LUCILLE (test code = LUCILLE) Association of [...] tests). Lab Interpretation Abnormal (test code = 01039-3) [facility] (NA, K, CL, CO2, GLUCOSE, BUN, CREATININE, CA)2021-10-15 23:12:40 Test Item Value Reference Range Interpretation Comments NA (test code = 136 mmol/L 135-145 2937566989) K (test code = 4.8 mmol/L 3.5-5.0 8156488525) CL (test code = 104 mmol/L 98-108 7321016854) CO2 TOTAL (test code = 26 mmol/L 23-31 2891676048) AGAP (test code = 2-16 3169714703) BUN (test code = 22 mg/dL 7-23 3619914099) GLUCOSE (test code = 114 mg/dL 70-110 H [id number]) CREATININE (test code = 0.77 mg/dL 0.50-1.04 9082398823) CALCIUM (test code = 8.2 mg/dL 8.6-10.6 L 5608241014) eGFR (test code = mL/min/1.73m2 0890119835) LUCILLE (test code = LUCILLE) Association of [...] tests). Lab Interpretation Abnormal (test code = 85331-4) [facility] [id number] 21:55:57 Test Item Value Reference Interpretation Comments Range TROPONIN I (test 0.003 ng/mL See_Comment [Automated code = 0138128646) message] The system which generated this result [...] biotin. Lab Interpretation Normal (test code = 45531-1) [facility] [id number] 21:55:57 Test Item Value Reference Interpretation Comments Range TROPONIN I (test 0.003 ng/mL See_Comment [Automated code = 7822565591) message] The system which generated this result [...] biotin. Lab Interpretation Normal (test code = 49306-6) [facility]AL[facility]ONIN2022-02-12 19:07:46 Test Item Value Reference Range Interpretation Comments Procalcitonin (test 0.15 ng/mL <0.08 H code = 3936795302) LUCILLE (test code = LUCILLE) INTERPRETATION OF [...] lung abscess/empyema. For further information please refer to:[email or web address] Lab Interpretation Abnormal (test code = 81775-8) [facility]PROCAL[facility]ONIN2022-02-12 19:07:46 Test Item Value Reference Range Interpretation Comments Procalcitonin (test 0.15 ng/mL <0.08 H code = 9114702683) LUCILLE (test code = LUCILLE) INTERPRETATION OF [...] lung abscess/empyema. For further information please refer to:[email or web address] Lab Interpretation Abnormal (test code = 17282-8) [facility] ResourcesN[facility]TERMINAL [id number] 18:31:24 Test Item Value Reference Range Interpretation Comments NT-proBNP (test code 43 pg/mL See_Comment [Autom ated = 2341607075) message] The system which generated this result transmitted reference range : <=125. The reference range was not used to interpret this result as normal/abnormal . LUCILLE (test code = LUCILLE) Biotin has been reported to cause a negative bias, interpret results relative to patient's use of biotin. Lab Interpretation Normal (test code = 19052-1) [facility] [id number] 18:31:24 Test Item Value Reference Range Interpretation Comments NT-proBNP (test code 43 pg/mL See_Comment [Autom ated = 8952202815) message] The system which generated this result transmitted reference range : <=125. The reference range was not used to interpret this result as normal/abnormal . LUCILLE (test code = LUCILLE) Biotin has been reported to cause a negative bias, interpret results relative to patient's use of biotin. Lab Interpretation Normal (test code = 50077-7) [facility]onin2022-02-12 09:17:58 Test Item Value Reference Range Interpretation Comments Procalcitonin (test 0.15 ng/mL <0.08 H code = 7951189924) LUCILLE (test code = LUCILLE) INTERPRETATION OF [...] lung abscess/empyema. For further information please refer to:[email or web address] Lab Interpretation Abnormal (test code = 76209-1) [facility]Procal[facility]onin2022-02-12 09:17:58 Test Item Value Reference Range Interpretation Comments Procalcitonin (test 0.15 ng/mL <0.08 H code = 8439252922) LUCILLE (test code = LUCILLE) INTERPRETATION OF [...] lung abscess/empyema. For further information please refer to:[email or web address] Lab Interpretation Abnormal (test code = 20360-2) [facility] (NA, K, CL, CO2, GLUCOSE, BUN, CREATININE, CA)2021-10-15 08:36:11 Test Item Value Reference Range Interpretation Comments NA (test code = 139 mmol/L 135-145 1772570689) K (test code = 5.5 mmol/L 3.5-5.0 H Slight 8504116450) hemolysis CL (test code = 104 mmol/L 98-108 7653032419) CO2 TOTAL (test code 29 mmol/L 23-31 = 0062729022) AGAP (test code = 2-16 5785420199) BUN (test code = 17 mg/dL 7-23 Slight 1643261255) hemolysis GLUCOSE (test code = 131 mg/dL 70-110 H 5391151465) CREATININE (test code 0.77 mg/dL 0.50-1.04 = 1468455734) CALCIUM (test code = 8.5 mg/dL 8.6-10.6 L 2799165546) eGFR (test code = mL/min/1.73m2 2728014517) LUCILLE (test code = LUCILLE) Association of [...] tests). Lab Interpretation Abnormal (test code = 81889-1) [facility] [id number] 08:36:11 Test Item Value Reference Range Interpretation Comments MAGNESIUM (test code = 2655847094) 2.4 mg/dL 1.7-2.4 Lab Interpretation (test code = Normal 94827-9) [facility] (NA, K, CL, CO2, GLUCOSE, BUN, CREATININE, CA)2021-10-15 08:36:11 Test Item Value Reference Range Interpretation Comments NA (test code = 139 mmol/L 135-145 3108080152) K (test code = 5.5 mmol/L 3.5-5.0 H Slight 2200153723) hemolysis CL (test code = 104 mmol/L 98-108 4737097596) CO2 TOTAL (test code 29 mmol/L 23-31 = 3092087605) AGAP (test code = 2-16 2751447296) BUN (test code = 17 mg/dL 7-23 Slight 2575613431) hemolysis GLUCOSE (test code = 131 mg/dL 70-110 H 1550769686) CREATININE (test code 0.77 mg/dL 0.50-1.04 = 2857886236) CALCIUM (test code = 8.5 mg/dL 8.6-10.6 L 5385742187) eGFR (test code = mL/min/1.73m2 6654985455) LUCILLE (test code = LUCILLE) Association of [...] tests). Lab Interpretation Abnormal (test code = 96845-5) [facility] [id number] 08:36:11 Test Item Value Reference Range Interpretation Comments MAGNESIUM (test code = 3506148712) 2.4 mg/dL 1.7-2.4 Lab Interpretation (test code = Normal 00833-4) [facility] [id number] 08:21:08 Test Item Value Reference Interpretation Comments Range TROPONIN I (test 0.005 ng/mL See_Comment [Automated code = 5566241124) message] The system which generated this result [...] biotin. Lab Interpretation Normal (test code = 17791-2) [facility] [id number] 08:21:08 Test Item Value Reference Interpretation Comments Range TROPONIN I (test 0.005 ng/mL See_Comment [Automated code = 5842178255) message] The system which generated this result [...] biotin. Lab Interpretation Normal (test code = 63511-9) [facility] WITH [id number] 07:37:26 Test Item Value Reference Range Interpretation Comments WBC (test code = See_Comment H [Automated 8890-2) message] The system which generated this result [...] RDW-SD (test code = 47.4 fL 39.0-49.9 46746-0) RDW-CV (test code = 14.6 % 12.0-15.5 788-0) PLT (test code = See_Comment [Automated 777-3) message] The system which generated this result transmit britney reference range : 166 - 358 10*3/ ?L. The reference range was not u sed to interpret th is result as normal/abnormal . MPV (test code = 11.1 fL 9.5-12.9 98884-3) NRBC/100 WBC (test See_Comment [Automat ed code = 0980711163) message] The system which generated this result transmit britney reference range : 0.0 - 10.0 /100 WBCs. The reference range was not used to interpret this result as normal/abnormal . NRBC x10^3 (test code <0.01 See_Comment [Auto mated = 8335937989) message] The system which generated this result transmit britney reference range : 10*3/?L. The reference range was not used to interpret this result as normal/abnormal . GRAN MAT (NEUT) % 92.0 % (test code = 770-8) IMM GRAN % (test code 1.10 % = 5447667793) LYMPH % (test code = 5.0 % 736-9) MONO % (test code = 1.8 % 5905-5) EOS % (test code = 0.0 % 713-8) BASO % (test code = 0.1 % 706-2) GRAN MAT x10^3(ANC) 20.65 10*3/uL 1.88-7.09 H (test code = 5389481915) IMM GRAN x10^3 (test 0.25 10*3/uL 0.00-0.06 H code = 3586465601) LYMPH x10^3 (test code 1.13 10*3/uL 1.32-3.29 L = 731-0) MONO x10^3 (test code 0.40 10*3/uL 0.33-0.92 = 742-7) EOS x10^3 (test code = <0.03 0.03-0.39 L 711-2) BASO x10^3 (test code 0.03 10*3/uL 0.01-0.07 = 704-7) Lab Interpretation Abnormal (test code = 36326-4) [facility] WITH [id number] 07:37:26 Test Item Value Reference Range Interpretation Comments WBC (test code = See_Comment H [Automated 3990-2) message] The system which generated this result transmit britney reference range : 4.30 - 11.10 10*3/?L. The reference range was not used to interpret this result as normal/abnormal . RBC (test code = See_Comment [Automated 259-8) message] The system which generated this result [...] RDW-SD (test code = 47.4 fL 39.0-49.9 29110-9) RDW-CV (test code = 14.6 % 12.0-15.5 788-0) PLT (test code = See_Comment [Automated 777-3) message] The system which generated this result transmit britney reference range : 166 - 358 10*3/ ?L. The reference range was not u sed to interpret th is result as normal/abnormal . MPV (test code = 11.1 fL 9.5-12.9 33237-5) NRBC/100 WBC (test See_Comment [Automat ed code = 9962266073) message] The system which generated this result transmit britney reference range : 0.0 - 10.0 /100 WBCs. The reference range was not used to interpret this result as normal/abnormal . NRBC x10^3 (test code <0.01 See_Comment [Auto mated = 8454887105) message] The system which generated this result transmit britney reference range : 10*3/?L. The reference range was not used to interpret this result as normal/abnormal . GRAN MAT (NEUT) % 92.0 % (test code = 770-8) IMM GRAN % (test code 1.10 % = 5756322814) LYMPH % (test code = 5.0 % 736-9) MONO % (test code = 1.8 % 5905-5) EOS % (test code = 0.0 % 713-8) BASO % (test code = 0.1 % 706-2) GRAN MAT x10^3(ANC) 20.65 10*3/uL 1.88-7.09 H (test code = 7884788699) IMM GRAN x10^3 (test 0.25 10*3/uL 0.00-0.06 H code = 9077371809) LYMPH x10^3 (test code 1.13 10*3/uL 1.32-3.29 L = 731-0) MONO x10^3 (test code 0.40 10*3/uL 0.33-0.92 = 742-7) EOS x10^3 (test code = <0.03 0.03-0.39 L 711-2) BASO x10^3 (test code 0.03 10*3/uL 0.01-0.07 = 704-7) Lab Interpretation Abnormal (test code = 46907-6) [facility]X+NA+K+GLU+CA2+2021-10-15 07:28:14 Test Item Value Reference Range Interpretation Comments PH (test code = 2) 7.35-7.45 PCO2 (test code = See_Comment [Automate d message] 7445063450) The system [employer] generated this result transmit britney reference range : 35 - 45 mmHg. The reference range was not used to interpret this result as normal/abnormal . PO2 (test code = See_Comment H [Automated message] 0689069873) The system [employer] generated this result transmit britney reference range : 80 - 100 mmHg. The reference range was not used to interpret this result as normal/abnormal . HCO3 (test code = See_Comment [Automate d message] 8526048201) The system [employer] generated this result transmit britney reference range : 22 - 26 mEq/L. The reference range was not used to interpret this result as normal/abnormal . BE (test code = See_Comment [Automated message] 9273944347) The system [employer] generated this result transmit britney reference range : -3.0 - 3.0 mEq/ L. The reference r nicholas was not used to interpret this result as normal/abnormal . THB (test code = 13.1 g/dL 12.0-16.0 4620601981) %O2HB (test code = 98.7 % 94.0-99.0 1418838200) %COHB ART (test code = 0.4 % 0.0-1.5 5877427189) %METHB ART (test code = 0.0 % 0.4-1.5 L 0631776067) VOL%O2 ART (test code = 18.5 % 15.0-23.0 QUES 4304895872) NA (test code = 138 mmol/L 135-145 8499093373) K+ (test code = 5.0 mmol/L 3.5-5.0 7609604266) AC CA IONZ (test code = 4.50 mg/dL 4.50-5.30 9785968884) GLUCOSE (test code = 138 mg/dL 70-110 H 9086287669) Lab Interpretation Abnormal (test code = 18645-1) [facility]COOX+NA+K+GLU+CA2+2021-10-15 07:28:14 Test Item Value Reference Range Interpretation Comments PH (test code = 2) 7.35-7.45 PCO2 (test code = See_Comment [Automate d message] 0824798615) The system [employer] generated this result transmit britney reference range : 35 - 45 mmHg. The reference range was not used to interpret this result as normal/abnormal . PO2 (test code = See_Comment H [Automated message] 0257674338) The system [employer] generated this result transmit britney reference range : 80 - 100 mmHg. The reference range was not used to interpret this result as normal/abnormal . HCO3 (test code = See_Comment [Automate d message] 3140429377) The system [employer] generated this result transmit britney reference range : 22 - 26 mEq/L. The reference range was not used to interpret this result as normal/abnormal . BE (test code = See_Comment [Automated message] 7816764018) The system [employer] generated this result transmit britney reference range : -3.0 - 3.0 mEq/ L. The reference r nicholas was not used to interpret this result as normal/abnormal . THB (test code = 13.1 g/dL 12.0-16.0 2543549338) %O2HB (test code = 98.7 % 94.0-99.0 4912758969) %COHB ART (test code = 0.4 % 0.0-1.5 1109434215) %METHB ART (test code = 0.0 % 0.4-1.5 L 2129754107) VOL%O2 ART (test code = 18.5 % 15.0-23.0 QUES 3579016520) NA (test code = 138 mmol/L 135-145 2465978350) K+ (test code = 5.0 mmol/L 3.5-5.0 0305459331) AC CA IONZ (test code = 4.50 mg/dL 4.50-5.30 2507554724) GLUCOSE (test code = 138 mg/dL 70-110 H 0328643320) Lab Interpretation Abnormal (test code = 26644-6) [facility] DNA [id number] 00:00:00 Test Item Value Reference Range Interpretation Comments DEB SPECIES (test code = ) NEGATIVE G. VAGINALIS (test code = 74060) POSITIVE T. VAGINALIS (test code = 98901) NEGATIVE VAGINAL PATHOGENS DNA [id number] 00:00:00 Test Item Value Reference Range Interpretation Comments DEB SPECIES (test code = ) NEGATIVE G. VAGINALIS (test code = 58499) POSITIVE T. VAGINALIS (test code = ) NEGATIVE GC AND CHLAMYDIA, AMPLIFIED, [id number] 00:00:00 Test Item Value Reference Range Interpretation Comments GONORRHEA, NAAT (test code = 34200) NEGATIVE CHLAMYDIA, NAAT (test code = 54573) NEGATIVE GC AND CHLAMYDIA, AMPLIFIED, [id number] 00:00:00 Test Item Value Reference Range Interpretation Comments GONORRHEA, NAAT (test code = 74967) NEGATIVE CHLAMYDIA, NAAT (test code = 42771) NEGATIVE HIV AB/AG COMBO RFLX [id number] 00:00:00 Test Item Value Reference Range Interpretation Comments HIV 1/2 4TH GEN, RFLX CONF (test NON-REACTIVE code = 3514) HIV AB/AG COMBO RFLX [id number] 00:00:00 Test Item Value Reference Range Interpretation Comments HIV 1/2 4TH GEN, RFLX CONF (test NON-REACTIVE code = 3514) [id number] 00:00:00 Test Item Value Reference Range Interpretation Comments RPR RESULT (test code = NON-REACTIVE 3501) RPR TITER (test code = 3500) NOT INDIC. TITER [id number] 00:00:00 Test Item Value Reference Range Interpretation Comments RPR RESULT (test code = NON-REACTIVE 3501) RPR TITER (test code = 3500) NOT INDIC. TITER [id number] 00:00:00 Test Item Value Reference Range Interpretation Comments RPR RESULT (test code = NON-REACTIVE 3501) RPR TITER (test code = 3500) NOT INDIC. TITER VAGINAL PATHOGENS DNA [id number] 00:00:00 Test Item Value Reference Range Interpretation Comments DEB SPECIES (test code = ) NEGATIVE G. VAGINALIS (test code = ) POSITIVE T. VAGINALIS (test code = ) NEGATIVE VAGINAL PATHOGENS DNA [id number] 00:00:00 Test Item Value Reference Range Interpretation Comments DEB SPECIES (test code = ) NEGATIVE G. VAGINALIS (test code = ) POSITIVE T. VAGINALIS (test code = ) NEGATIVE GC AND CHLAMYDIA, AMPLIFIED, [id number] 00:00:00 Test Item Value Reference Range Interpretation Comments GONORRHEA, NAAT (test code = 64113) NEGATIVE CHLAMYDIA, NAAT (test code = 81065) NEGATIVE GC AND CHLAMYDIA, AMPLIFIED, [id number] 00:00:00 Test Item Value Reference Range Interpretation Comments GONORRHEA, NAAT (test code = 42552) NEGATIVE CHLAMYDIA, NAAT (test code = 95586) NEGATIVE HIV AB/AG COMBO RFLX [id number] 00:00:00 Test Item Value Reference Range Interpretation Comments HIV 1/2 4TH GEN, RFLX CONF (test NON-REACTIVE code = 3514) HIV AB/AG COMBO RFLX [id number] 00:00:00 Test Item Value Reference Range Interpretation Comments HIV 1/2 4TH GEN, RFLX CONF (test NON-REACTIVE code = 3514) [id number] 00:00:00 Test Item Value Reference Range Interpretation Comments RPR RESULT (test code = NON-REACTIVE 3501) RPR TITER (test code = 3500) NOT INDIC. TITER [id number] 00:00:00 Test Item Value Reference Range Interpretation Comments RPR RESULT (test code = NON-REACTIVE 3501) RPR TITER (test code = 3500) NOT INDIC. TITER [id number] 00:00:00 Test Item Value Reference Range Interpretation Comments RPR RESULT (test code = NON-REACTIVE 3501) RPR TITER (test code = 3500) NOT INDIC. TITER VAGINAL PATHOGENS DNA [id number] 00:00:00 Test Item Value Reference Range Interpretation Comments DEB SPECIES (test code = ) NEGATIVE G. VAGINALIS (test code = 88975) POSITIVE T. VAGINALIS (test code = 57320) NEGATIVE VAGINAL PATHOGENS DNA [id number] 00:00:00 Test Item Value Reference Range Interpretation Comments DEB SPECIES (test code = ) NEGATIVE G. VAGINALIS (test code = 84968) POSITIVE T. VAGINALIS (test code = ) NEGATIVE GC AND CHLAMYDIA, AMPLIFIED, [id number] 00:00:00 Test Item Value Reference Range Interpretation Comments GONORRHEA, NAAT (test code = 95431) NEGATIVE CHLAMYDIA, NAAT (test code = 11240) NEGATIVE GC AND CHLAMYDIA, AMPLIFIED, [id number] 00:00:00 Test Item Value Reference Range Interpretation Comments GONORRHEA, NAAT (test code = 95046) NEGATIVE CHLAMYDIA, NAAT (test code = 53580) NEGATIVE HIV AB/AG COMBO RFLX [id number] 00:00:00 Test Item Value Reference Range Interpretation Comments HIV 1/2 4TH GEN, RFLX CONF (test NON-REACTIVE code = 3514) HIV AB/AG COMBO RFLX [id number] 00:00:00 Test Item Value Reference Range Interpretation Comments HIV 1/2 4TH GEN, RFLX CONF (test NON-REACTIVE code = 3514) VAGINAL PATHOGENS DNA [id number] 00:00:00 Test Item Value Reference Range Interpretation Comments DEB SPECIES (test code = ) NEGATIVE G. VAGINALIS (test code = ) POSITIVE T. VAGINALIS (test code = 49654) NEGATIVE [id number] 00:00:00 Test Item Value Reference Range Interpretation Comments RPR RESULT (test code = NON-REACTIVE 3501) RPR TITER (test code = 3500) NOT INDIC. TITER VAGINAL PATHOGENS DNA [id number] 00:00:00 Test Item Value Reference Range Interpretation Comments DEB SPECIES (test code = ) NEGATIVE G. VAGINALIS (test code = 72790) POSITIVE T. VAGINALIS (test code = 68332) NEGATIVE GC AND CHLAMYDIA, AMPLIFIED, [id number] 00:00:00 Test Item Value Reference Range Interpretation Comments GONORRHEA, NAAT (test code = 00142) NEGATIVE CHLAMYDIA, NAAT (test code = 12708) NEGATIVE GC AND CHLAMYDIA, AMPLIFIED, [id number] 00:00:00 Test Item Value Reference Range Interpretation Comments GONORRHEA, NAAT (test code = 67945) NEGATIVE CHLAMYDIA, NAAT (test code = 74496) NEGATIVE HIV AB/AG COMBO RFLX [id number] 00:00:00 Test Item Value Reference Range Interpretation Comments HIV 1/2 4TH GEN, RFLX CONF (test NON-REACTIVE code = 3514) HIV AB/AG COMBO RFLX [id number] 00:00:00 Test Item Value Reference Range Interpretation Comments HIV 1/2 4TH GEN, RFLX CONF (test NON-REACTIVE code = 3514) [id number] 00:00:00 Test Item Value Reference Range Interpretation Comments RPR RESULT (test code = NON-REACTIVE 3501) RPR TITER (test code = 3500) NOT INDIC. TITER [id number] 00:00:00 Test Item Value Reference Range Interpretation Comments RPR RESULT (test code = NON-REACTIVE 3501) RPR TITER (test code = 3500) NOT INDIC. TITER [id number] 00:00:00 Test Item Value Reference Range Interpretation Comments RPR RESULT (test code = NON-REACTIVE 3501) RPR TITER (test code = 3500) NOT INDIC. TITER [id number] 00:00:00 Test Item Value Reference Range Interpretation Comments RPR RESULT (test code = NON-REACTIVE 3501) RPR TITER (test code = 3500) NOT INDIC. TITER [id number] 00:00:00 Test Item Value Reference Range Interpretation Comments RPR RESULT (test code = NON-REACTIVE 3501) RPR TITER (test code = 3500) NOT INDIC. TITER
--- NOTE | 2023-05-23 20:52 | RAD REPORT ---
EXAM DESCRIPTION: RADChest Single View05/23/2023 8:20 pm CLINICAL HISTORY: COUGH COMPARISON: Chest Single View dated 07/21/2022; Chest Single View dated 06/17/2022; Chest Single Vie w dated 04/02/2022; Chest Single View dated 12/30/2021 TECHNIQUE: Portable AP view of the chest. FINDINGS: The lungs are clear. Right basilar atelectasis. No pneumothorax or effusion. The cardiomed iastinal contours are unremarkable. IMPRESSION: No acute cardiopulmonary process.
[2023-05-23] MEDS ORDERED: NA CHLORIDE 0.9% 1,000 ML ONE (20:53)
--- NOTE | 2023-05-23 22:25 | RAD REPORT ---
EXAM DESCRIPTION: US - Extrem Venous W Compress Deepak - 05/23/2023 10:07 pm CLINICAL HISTORY: Pain COMPARISON: 12/20/2022 TECHNIQUE: Real-time sonographic evaluation of the bilateral lower extremity deep venous systems was performed. FINDINGS: Normal compressibility, flow augmentation, phasic flow and spontaneous flow is identified in both the left and right lower extremity deep venous systems. No intraluminal filling defects seen. IMPRESSION: No DVT in either lower extremity.
[2023-05-23 22:51] LABS: Absolute Lymphocytes (CBC) 2.3 K/uL (0.7-4.9); Hematocrit 41.7 % (36.0-45.0); Lymphocytes % 23.6 % (15.3-44.8); MCV 80.9 fL (80-100); MPV 8.8 fL (7.6-11.3); Platelets 277 thou/uL (152-406); RBC Red Blood Cell Count 5.15 M/uL (3.86-4.86)
[2023-05-23 23:06] LABS: ALT/SGPT 51 U/L (13-56); AST/SGOT 32 U/L (15-37); Alkaline Phosphatase 83 U/L (45-117); BUN Blood Urea Nitrogen 35 mg/dL (7-18); Bicarbonate 26 mEq/L (21-32); Bilirubin Total 0.2 mg/dL (0.2-1.0); Glomerular Filtration Rate 21 ml/min (=/>90); Glucose Level 101 mg/dL (74-106); Potassium 3.3 mEq/L (3.5-5.1); Sodium Level 134 mEq/L (136-145)
[2023-05-23 23:07] LABS: Albumin 4.2 g/dL (3.4-5.0); Lipase 56 U/L (13-75); Magnesium 2.5 mg/dL (1.6-2.4); NT PRO-BNP 539 pg/mL (<125); Protein, Total 8.2 g/dL (6.4-8.2)
[2023-05-23 23:11] LABS: Bilirubin Direct < 0.1 mg/dL (0-0.2); Bilirubin Indirect, Calculated ND mg/dL (0.2-0.8); Troponin High Sensitivity 61.8 pg/mL (<58.9)
[2023-05-23 23:13] LABS: Protime INR 0.92
[2023-05-23] MEDS ORDERED: ONDANSETRON 4 MG/2 ML VIAL ONE (23:14)
[2023-05-23] MEDS ORDERED: MORPHINE 4 MG/ML SYR ONE (23:14)
[2023-05-23 23:27] LABS: Calcium Oxalate Crystals- Ur Few /HPF (None Seen); Specific Gravity 1.019 (1.005-1.030); Urine Bacteria <20 /HPF (<20); Urine Bilirubin NEGATIVE (Negative); Urine Blood Trace (Negative); Urine Clarity Extremely Turbid (Clear); Urine Color Light-Yellow (Yellow); Urine Glucose NEGATIVE (Negative); Urine Mucus Slight /HPF (None Seen); Urine Protein TRACE (Negative); Urine RBC <5 /HPF (None Seen); Urine Urobilinogen Normal (Normal)
--- NOTE | 2023-05-23 23:38 | EDPHYS ---
Physician Documentation [facility] Name: Nancie Ordonez Age: 52 yrs Sex: Female : 1970 Arrival Date: 05/23/2023 Time: 19:40 Bed 20 Private MD: ED Physician Yemi Oliveira HPI: 05/23 20:45 This 52 yrs old Black Female presents to ER via Ambulatory with complaints of vargas Dizziness, HOT FLASHES. 20:45 The patient presents with dizziness, generalized weakness. Onset: The symptoms/episode vargas began/occurred 3 week(s) ago. Context: occurred at home, occurred while the patient was standing. Modifying factors: The symptoms are alleviated by lying down, the symptoms are aggravated by standing up. Associated signs and symptoms: The patient has no apparent associated signs or symptoms. Severity of symptoms: At their worst the symptoms were moderate in the emergency department the symptoms are unchanged. Patient's baseline: Neuro:. The patient has not experienced similar symptoms in the past. Historical: - Allergies: 19:52 Ibuprofen; ha1 19:52 Naproxen; ha1 - Home Meds: 19:52 amlodipine oral [Active]; ha1 - PMHx: 19:52 Arthritis; GERD; Gout; Hypertension; Pneumonia; ha1 - PSHx: 19:52 section; hernia repair; Neck sx; Right arm injury; ha1 - Immunization history:: Adult Immunizations up to date. - Social history:: Smoking status: unknown. - Family history:: not pertinent. ROS: 20:45 Constitutional: Negative for fever, chills, and weight loss, Eyes: Negative for injury, vargas pain, redness, and discharge, ENT: Negative for injury, pain, and discharge, Neck: Negative for injury, pain, and swelling, Cardiovascular: Negative for chest pain, palpitations, and edema, Respiratory: Negative for shortness of breath, cough, wheezing, and pleuritic chest pain, Abdomen/GI: Negative for abdominal pain, nausea, vomiting, diarrhea, and constipation, Back: Negative for injury and pain, : Negative for injury, bleeding, discharge, and swelling, MS/Extremity: Negative for injury and deformity, Skin: Negative for injury, rash, and discoloration, Psych: Negative for depression, anxiety, suicide ideation, homicidal ideation, and hallucinations, Allergy/Immunology: Negative for hives, rash, and allergies, Endocrine: Negative for neck swelling, polydipsia, polyuria, polyphagia, and marked weight changes, Hematologic/Lymphatic: Negative for swollen nodes, abnormal bleeding, and unusual bruising, 20:45 Neuro: Positive for dizziness, 20:45 MS/extremity: Positive for pain, of the right leg, vargas Exam: 20:45 Constitutional: This is a well developed, well nourished patient who is awake, alert, vargas and in no acute distress. Head/Face: Normocephalic, atraumatic. Eyes: Pupils equal round and reactive to light, extra-ocular motions intact. Lids and lashes normal. Conjunctiva and sclera are non-icteric and not injected. Cornea within normal limits. Periorbital areas with no swelling, redness, or edema. ENT: Nares patent. No nasal discharge, no septal abnormalities noted. Tympanic membranes are normal and external auditory canals are clear. Oropharynx with no redness, swelling, or masses, exudates, or evidence of obstruction, uvula midline. Mucous membranes moist. Neck: Trachea midline, no thyromegaly or masses palpated, and no cervical lymphadenopathy. Supple, full range of motion without nuchal rigidity, or vertebral point tenderness. No Meningismus. Chest/axilla: Normal chest wall appearance and motion. Nontender with no deformity. No lesions are appreciated. Cardiovascular: Regular rate and rhythm with a normal S1 and S2. No gallops, murmurs, or rubs. Normal PMI, no JVD. No pulse deficits. Respiratory: Lungs have equal breath sounds bilaterally, clear to auscultation and percussion. No rales, rhonchi or wheezes noted. No increased work of breathing, no retractions or nasal flaring. Abdomen/GI: Soft, non-tender, with normal bowel sounds. No distension or tympany. No guarding or rebound. No evidence of tenderness throughout. Back: No spinal tenderness. No costovertebral tenderness. Full range of motion. Skin: Warm, dry with normal turgor. Normal color with no rashes, no lesions, and no evidence of cellulitis. MS/ Extremity: Pulses equal, no cyanosis. Neurovascular intact. Full, normal range of motion. Neuro: Awake and alert, GCS 15, oriented to person, place, time, and situation. Cranial nerves II-XII grossly intact. Motor strength 5/5 in all extremities. Sensory grossly intact. Cerebellar exam normal. Normal gait. Psych: Awake, alert, with orientation to person, place and time. Behavior, mood, and affect are within normal limits. 21:06 ECG was reviewed by the Attending Physician. [facility] Vital Signs: 19:46 BP 98 / 68; Pulse 87; Resp 16 S; Temp 97.9; Pulse Ox 99% on R/A; Weight 82.55 kg; 1 Height 5 ft. 3 in. ; Pain 10/10; 21:15 BP 118 / 79; Pulse 80; Resp 15; Pulse Ox 96% on R/A; 1 22:40 BP 117 / 80; Pulse 79; Resp 16 S; Pulse Ox 97% on R/A; [facility] 23:17 BP 133 / 96; Pulse 71; Resp 16 S; Pulse Ox 96% on R/A; [facility] 05/24 00:20 BP 102 / 62; Pulse 65; Resp 17 S; Pulse Ox 96% on R/A; [facility] 05/23 19:46 Body Mass Index 32.24 (82.55 kg, 160.02 cm) [facility] 05/23 19:46 Pain Scale: Adult [facility] MDM: 05/23 20:09 Patient medically screened. [facility] 20:46 Differential diagnosis: cardiac arrhythmia, generalized weakness. Data reviewed: vital [facility] signs, nurses notes, lab test result(s), EKG, radiologic studies. Consideration of Admission/Observation Escalation of care including admission/observation considered. I considered the following discharge prescriptions or medication management in the emergency department Medications were administered in the Emergency Department. See MAR. Test considered but Not performed: CT: no ct head. Historians other than the Patient: Spouse/Significant Other: eileen hu. Care significantly affected by the following chronic conditions: Hypertension, oa, gerd, gout, pna. Counseling: I had a detailed discussion with the patient and/or guardian regarding the historical points, exam findings, and any diagnostic results supporting the discharge/admit diagnosis, the presence of at least one elevated blood pressure reading (>120/80) during this emergency department visit, lab results, radiology results, the need for outpatient follow up, for definitive care, a internal controls specialist, a family practitioner. 05/23 20:10 Order name: Basic Metabolic Panel; Complete Time: 23:24 [facility] 05/23 20:10 Order name: CBC with Diff; Complete Time: 23:24 [facility] 05/23 20:10 Order name: LFT's; Complete Time: 23:24 [facility] 05/23 20:10 Order name: Magnesium; Complete Time: 23:24 [facility] 05/23 20:10 Order name: NT PRO-BNP; Complete Time: 23:24 [facility] 05/23 20:10 Order name: PT-INR; Complete Time: 23:24 [facility] 05/23 20:10 Order name: Troponin HS; Complete Time: 23:24 [facility] 05/23 20:10 Order name: Urinalysis w/ reflexes; Complete Time: 23:42 [facility] 05/23 20:10 Order name: Lipase; Complete Time: 23:24 [facility] 05/23 23:32 Order name: Urine Culture [facility] 05/23 20:10 Order name: XRAY Chest (1 view); Complete Time: 22:16 [facility] 05/23 20:10 Order name: US Extremity Venous W Compression Deepak; Complete Time: 22:44 [facility] 05/23 23:46 Order name: CT Stone Protocol [facility] 05/23 20:10 Order name: EKG; Complete Time: 20:11 [facility] 05/23 23:48 Order name: CONS Physician Consult [facility] 05/23 20:10 Order name: Cardiac monitoring; Complete Time: 20:56 [facility] 05/23 20:10 Order name: EKG - Nurse/Tech; Complete Time: 21:16 [facility] 05/23 20:10 Order name: IV Saline Lock; Complete Time: 22:42 [facility] 05/23 20:10 Order name: Labs collected and sent; Complete Time: 22:42 [facility] 05/23 20:10 Order name: O2 Per Protocol; Complete Time: 20:56 [facility] 05/23 20:10 Order name: O2 Sat Monitoring; Complete Time: 20:56 [facility] EC:06 Rate is 79 beats/min. Rhythm is regular. QRS [place] is Normal. [place] interval is normal. QRS vargas interval is normal. QT interval is normal. No Q waves. T waves are Inverted in leads I, II, III, aVF, V2, V3, V4, V5, V6. No ST changes noted. Clinical impression: NSR w/ Non-specific ST/T Changes, Abnormal EKG without significant change, and No evidence of ischemia. Interpreted by me. Reviewed by me. Administered Medications: 22:41 Drug: NS 0.9% IV 1000 ml IV at 1 bolus Per protocol; 1000 mL bolus Route: IV; Rate: 1 ha1 bolus; Site: right forearm; 05/24 01:09 Follow up: Response: No adverse reaction; IV Status: Infusion continued; IV Intake: ha1 800ml 05/23 23:00 Drug: Ondansetron IVP 4 mg IVP once; over 2 minutes Route: IVP; Site: right forearm; ha1 23:17 Follow up: Response: No adverse reaction ha1 23:02 Drug: morphine IVP or IV 4 mg IVP once over 4 mins Route: IVP; Infused Over: 4 mins; ha1 Site: right forearm; 23:18 Follow up: Response: No adverse reaction; Pain is decreased; RASS: Alert and Calm (0) ha1 05/24 00:00 Drug: Aspirin PO Chewable Tablet 162 mg PO once Route: PO; ha1 01:09 Follow up: Response: No adverse reaction ha1 00:05 Drug: Enoxaparin Sub-Q 1 mg/kg Sub-Q once Route: Sub-Q; Site: abdomen; ha1 00:45 Follow up: Response: No adverse reaction ha1 00:10 Drug: Metoprolol PO 25 mg PO once Route: PO; ha1 00:45 Follow up: Response: No adverse reaction ha1 00:48 Drug: Famotidine IVP 20 mg IVP once; dilute with 10 mL 0.9% NaCl; give over 2 minutes ha1 Route: IVP; Site: right upper arm; 01:09 Follow up: Response: No adverse reaction ha1 00:49 Drug: Rocephin IV 1 grams IV at per protocol once; Given slow IV push per pharmacy ha1 instructions Route: IV; Rate: per protocol; Site: right upper arm; 01:08 Follow up: Response: No adverse reaction; IV Status: Completed infusion; IV Intake: [id number] Disposition Summary: 05/23/23 23:37 Hospitalization Ordered Notes: Hospitalization Status: Observation vargas Provider: Tequila Velez cha Location: Telemetry/MedSurg (observation) vargas Condition: Stable vargas Problem: new vargas Symptoms: have improved vargas Bed/Room Type: Standard [facility] Room Assignment: 210(05/24/23 00:32) kl Diagnosis - Weakness vargas - Dizziness and giddiness vargas - Abnormal electrocardiogram [ECG] [EKG] vargas - Abnormal levels of other serum enzymes - ELEVATED Troponin vargas - Acute kidney failure, unspecified - on chronic vargas - Hypokalemia vargas Discharge Instructions: - Discharge Summary Sheet vargas - Dizziness vargas - Weakness vargas - Weakness, [id number] vargas - Deconditioning vargas Forms: - Medication Reconciliation Form vargas - SBAR form vargas - Leadership Thank You Letter vargas Prescriptions: - Meclizine 25 mg Oral Tablet - take 1 tablet ORAL route every 8 hours As needed; 30 tablet; Refills: 0, vargas Product Selection Permitted Signatures: Dispatcher [employer] Nani Hedrick RN RN kl Anderson, Corey, MD MD cha Ayala, Heidy, RN RN ha1 Corrections: (The following items were deleted from the chart) 00:32 05/23 23:37 vargas [place]
--- NOTE | 2023-05-23 23:38 | ER ---
Nurse's Notes [facility] Name: Nancie Ordonez Age: 52 yrs Sex: Female : 1970 Arrival Date: 05/23/2023 Time: 19:40 Bed 20 Private MD: Diagnosis: Weakness;Dizziness and giddiness;Abnormal electrocardiogram [ECG] [EKG];Abnormal levels of other serum enzymes-ELEVATED Troponin;Acute kidney failure, unspecified-on chronic;Hypokalemia Presentation: 05/23 19:46 Chief complaint: Patient states: I have been having hot flashes and night sweats for ha1 the past three weeks. Also, I been feeling dizzy when standing. Also, I have been dealing with a bad pain in my right leg. Coronavirus screen: Vaccine status: Patient reports receiving the 2nd dose of the covid vaccine. Moderna. Ebola Screen: No symptoms or risks identified at this time. Initial Sepsis Screen: Does the patient meet any 2 criteria? No. Patient's initial sepsis screen is negative. Does the patient have a suspected source of infection? No. Patient's initial sepsis screen is negative. Risk Assessment: Do you want to hurt yourself or someone else? Patient reports no desire to harm self or others. Onset of symptoms was May 08, 2023. 19:46 Method Of Arrival: Ambulatory ha1 19:46 Acuity: DEEPALI 3 ha1 Triage Assessment: 19:52 General: Appears comfortable, Behavior is calm, cooperative. Pain: Complains of pain in ha1 right leg Pain does not radiate. Pain currently is 10 out of 10 on a pain scale. Neuro: Level of Consciousness is awake, alert, obeys commands, Oriented to person, place, time, situation. Respiratory: Airway is patent Respiratory effort is even, unlabored, Respiratory pattern is regular, symmetrical. Historical: - Allergies: 19:52 Ibuprofen; ha1 19:52 Naproxen; ha1 - Home Meds: 19:52 amlodipine oral [Active]; ha1 - PMHx: 19:52 Arthritis; GERD; Gout; Hypertension; Pneumonia; ha1 - PSHx: 19:52 section; hernia repair; Neck sx; Right arm injury; ha1 - Immunization history:: Adult Immunizations up to date. - Social history:: Smoking status: unknown. - Family history:: not pertinent. Screenin:45 [facility] ED Fall Risk Assessment (Adult) Score/Fall Risk Level 0 - 2 = Low Risk. Abuse ha1 screen: Denies threats or abuse. Denies injuries from another. Nutritional screening: No deficits noted. Tuberculosis screening: No symptoms or risk factors identified. Assessment: 20:45 General: Appears in no apparent distress. uncomfortable, Behavior is cooperative, ha1 appropriate for age. Pain: Denies pain. Neuro: Level of Consciousness is awake, alert, obeys commands, Oriented to person, place, time, situation, Reports dizziness. Cardiovascular: Capillary refill < 3 seconds Patient's skin is warm and dry. Respiratory: Airway is patent Respiratory effort is even, unlabored, Respiratory pattern is regular, symmetrical. GI: Abdomen is round non-distended. Derm: Skin is pink, warm \T\ dry. Musculoskeletal: Circulation, motion, and sensation intact. 22:40 Reassessment: Patient and/or family updated on plan of care and expected duration. Pain ha1 level reassessed. Patient is alert, oriented x 3, equal unlabored respirations, skin warm/dry/pink. 23:16 Reassessment: Patient and/or family updated on plan of care and expected duration. Pain ha1 level reassessed. Patient is alert, oriented x 3, equal unlabored respirations, skin warm/dry/pink. pain 4/10 Patient states feeling better. Patient states symptoms have improved. 05/24 00:59 Reassessment: REPORT GIVEN TO NICCI SUMMERS. 1 Vital Signs: 05/23 19:46 BP 98 / 68; Pulse 87; Resp 16 S; Temp 97.9; Pulse Ox 99% on R/A; Weight 82.55 kg; ha1 Height 5 ft. 3 in. ; Pain 10/10; 21:15 BP 118 / 79; Pulse 80; Resp 15; Pulse Ox 96% on R/A; ha1 22:40 BP 117 / 80; Pulse 79; Resp 16 S; Pulse Ox 97% on R/A; ha1 23:17 BP 133 / 96; Pulse 71; Resp 16 S; Pulse Ox 96% on R/A; ha1 05/24 00:20 BP 102 / 62; Pulse 65; Resp 17 S; Pulse Ox 96% on R/A; ha1 05/23 19:46 Body Mass Index 32.24 (82.55 kg, 160.02 cm) ha1 05/23 19:46 Pain Scale: Adult ha1 ED Course: 05/23 19:43 Patient arrived in ED. [id number] 19:52 Triage completed. ha1 20:08 Yemi Oliveira MD is Attending Physician. [facility] 20:22 XRAY Chest (1 view) In Process Unspecified. EDMS 20:40 Judith Garland, NICCI is Primary Nurse. 3 20:45 Missed attempt(s): 24 gauge in left antecubital area. Bleeding controlled, band aid ha1 applied, catheter tip intact. 20:45 Patient has correct armband on for positive identification. Bed in low position. Call ha1 light in reach. Side rails up X2. Adult w/ patient. Provided Education on: Use of call wilson. Client placed on continuous cardiac and pulse oximetry monitoring. NIBP monitoring applied. 21:15 Report given to NICCI Ramos. ha1 21:20 Arm band placed on right wrist. ha1 22:09 US Extremity Venous W Compression Deepak In Process Unspecified. EDMS 22:42 Basic Metabolic Panel Sent. ha1 22:42 CBC with Diff Sent. ha1 22:42 LFT's Sent. ha1 22:42 Magnesium Sent. ha1 22:42 NT PRO-BNP Sent. ha1 22:42 PT-INR Sent. ha1 22:42 Troponin HS Sent. ha1 23:36 Tequila Velez MD is Hospitalizing Provider. [facility] 05/24 00:37 Accessed peripheral vein via ultrasound, utilizing dynamic ultrasound technique using as6 20G Nexia IV catheter per hospital protocol. Clean \T\ dry. Dressing intact. Good blood return. Flushes easily. 20g 10cm midline. 01:10 No provider procedures requiring assistance completed. Patient admitted, IV remains in ha1 place. Administered Medications: 05/23 22:41 Drug: NS 0.9% IV 1000 ml IV at 1 bolus Per protocol; 1000 mL bolus Route: IV; Rate: 1 ha1 bolus; Site: right forearm; 05/24 01:09 Follow up: Response: No adverse reaction; IV Status: Infusion continued; IV Intake: ha1 800ml 05/23 23:00 Drug: Ondansetron IVP 4 mg IVP once; over 2 minutes Route: IVP; Site: right forearm; ha1 23:17 Follow up: Response: No adverse reaction ha1 23:02 Drug: morphine IVP or IV 4 mg IVP once over 4 mins Route: IVP; Infused Over: 4 mins; ha1 Site: right forearm; 23:18 Follow up: Response: No adverse reaction; Pain is decreased; RASS: Alert and Calm (0) [facility] 05/24 00:00 Drug: Aspirin PO Chewable Tablet 162 mg PO once Route: PO; ha1 01:09 Follow up: Response: No adverse reaction ha1 00:05 Drug: Enoxaparin Sub-Q 1 mg/kg Sub-Q once Route: Sub-Q; Site: abdomen; ha1 00:45 Follow up: Response: No adverse reaction ha1 00:10 Drug: Metoprolol PO 25 mg PO once Route: PO; ha1 00:45 Follow up: Response: No adverse reaction ha1 00:48 Drug: Famotidine IVP 20 mg IVP once; dilute with 10 mL 0.9% NaCl; give over 2 minutes ha1 Route: IVP; Site: right upper arm; :09 Follow up: Response: No adverse reaction 1 00:49 Drug: Rocephin IV 1 grams IV at per protocol once; Given slow IV push per pharmacy ha1 instructions Route: IV; Rate: per protocol; Site: right upper arm; :08 Follow up: Response: No adverse reaction; IV Status: Completed infusion; IV Intake: [id number] Medication: 01:10 VIS not applicable for this client. ha1 Intake: :08 IV: 50ml; Total: 50ml. 1 :09 IV: 800ml; Total: 850ml. [facility] Outcome: 05/23 23:37 Decision to Hospitalize by Provider. [facility] 05/24 01:10 Admitted to Med/surg accompanied by tech, via wheelchair, room 210, with chart, ha1 Condition: stable Discharge instructions given to patient, family, Instructed on the need for admit, Demonstrated understanding of instructions, 01:11 Patient left the ED. 1 Signatures: Dispatcher [employer] EDYemi Reilly MD MD cha Jeffries, Jennifer [id number] Nii Mir RN RN as6 Judith Garland RN RN 3 Rachel Quinonez RN RN 1
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
[2023-05-24] MEDS ORDERED: ASPIRIN 81 MG CHEWABLE TABLET ONE (00:11)
[2023-05-24] MEDS ORDERED: METOPROLOL TAR 25 MG TAB ONE (00:11)
[2023-05-24] MEDS ORDERED: ENOXAPARIN 80 MG/0.8 ML SQ ONE (00:12)
[2023-05-24] MEDS ORDERED: CEFTRIAXONE 1000 MG/VIAL ONE (00:12)
[2023-05-24] MEDS ORDERED: NA CHLORIDE 0.9% 50 ML ONE (00:12)
[2023-05-24] MEDS ORDERED: FAMOTIDINE 20 MG/2 ML VIAL IV ONE (00:12)
[2023-05-24] MEDS ORDERED: MORPHINE 4 MG/ML SYR IV PRN (00:41)
[2023-05-24] MEDS ORDERED: ONDANSETRON 4 MG/2 ML VIAL IV PRN (00:59)
[2023-05-24] MEDS ORDERED: METOPROLOL TARTRATE 5 MG/5 ML INJ IV PRN (01:22)
[2023-05-24 01:24] VITALS: BMI 33.0
[2023-05-24] MEDS: TRAMADOL HCL 50 MG TAB PO PRN ×3 (02:45→19:53)
[2023-05-24 03:29] LABS: Absolute Lymphocytes (CBC) 2.7 K/uL (0.7-4.9); Hematocrit 37.1 % (36.0-45.0); Lymphocytes % 35.2 % (15.3-44.8); MPV 8.6 fL (7.6-11.3); Platelets 246 thou/uL (152-406); RBC Red Blood Cell Count 4.53 M/uL (3.86-4.86)
[2023-05-24 03:45] LABS: Magnesium 2.4 mg/dL (1.6-2.4); Potassium 3.1 mEq/L (3.5-5.1)
[2023-05-24] MEDS: KCL 20 MEQ/100 mL IVPB 20 MEQ/100 ML BAG IV SCH ×2 (04:44→09:16)
[2023-05-24] MEDS: METOPROLOL TAR 25 MG TAB PO SCH ×2 (05:01→17:43)
[2023-05-24] MEDS ORDERED: INFLUENZA VACCINE (for 6+ mo) 0.5 ML DOSE IMVAC ONE (08:00)
[2023-05-24] MEDS: ASPIRIN 325 MG TAB PO SCH (09:17)
[2023-05-24] MEDS: CEFTRIAXONE 1,000 MG in NA CHLORIDE 0.9% 50 ML IVPB SCH (09:18)
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
[2023-05-24 10:13] VITALS: O2SAT 98
[2023-05-24] MEDS: NA CHLORIDE 0.9% 1,000 ML IV SCH (10:55)
[2023-05-24] MEDS ORDERED: NA CHLORIDE 0.9% 1,000 ML IV ONE (11:06)
--- NOTE | 2023-05-24 14:30 | CON ---
Date of Consultation: 05/24/2023 Reason For Consultation: Dizziness and borderline elevated troponin. History Of Present Illness: A 52-year-old female with history of hypertension, acid reflux, arthriti s, presented to the emergency room with dizziness. Blood pressure was low and it is getting worse an d reported that when she changes position, she feels like she is about to faint. Denies nausea, vomi ting, or diarrhea. Denies having even any chest pain. Creatinine was elevated on admission and she is known to have normal creatinine in the recent past. Past Medical History: As outlined above in the HPI. Medications: Refer to consultation sheet for detailed list. Allergies: NAPROXEN. Family History: No premature coronary artery disease or cancer. Social History: She does not smoke or drink. Does not use any drugs. Review of Systems: All systems reviewed are negative except as mentioned in HPI. Physical Examination: Vital Signs: Temperature 97.1, pulse 60, breathing at 14, blood pressure is 96/57, saturating 98% on room air. General: A pleasant, middle-aged female, in no apparent distress. Head and Neck: Pupils are equal, reactive to light. Intact eye movements. No JVD. No cervical lym phadenopathy. Neck is supple. Thyroid is not enlarged. Lungs: Clear to auscultation bilaterally. No rhonchi, rales, or crackles. No accessory muscle use. Heart: Regular rate and rhythm. No extra sounds. Abdomen: Soft, nontender. Bowel sounds positive. No organomegaly. No masses or hernia. No rigidi ty or rebound. Extremities: No edema, clubbing, or cyanosis. Intact pulses. Skin: No rashes. Neurologic: Alert, awake, oriented x3. No acute focal deficits appreciated. Investigations: Creatinine 2.19 down from 2.67 and BUN is 34. Troponin 2 sets are negative now, but she had the first set was borderline elevated and LDL cholesterol is 110. Hemoglobin 12.4. Assessment/recommendation: 1.Hypotension that is probably due to dehydration as she has an acute renal failure. I am not sure if she was getting any diuretics at home. My recommendation will be gentle hydration with normal lavon ine at 75 cc/hour. Re-evaluate labs in the morning and blood pressure, she should respond to that ve ry well. Definitely hold all blood pressure medicines for now. 2.Urinary tract infection, probably it is the cause of her drop in blood pressure and mild case of s epsis. Continue antibiotics and gentle hydration and reassess. 3.Acute renal failure due to sepsis and dehydration, resolving. Continue current management. I exp ect once GI is under control and the fluid status is replaced, the patient will become asymptomatic. 4.Elevated troponin. This is likely demand. However, it was reported in the chart that she is havi ng chest pain. Recommend a stress test which can be done as an outpatient, but also please obtain an echo. /MODL Voice ID: [id number] Report ID: [id number]
--- NOTE | 2023-05-24 14:54 | RAD REPORT ---
EXAM DESCRIPTION: CT Abdomen and Pelvis Without Intravenous Contrast CLINICAL HISTORY: The patient is 52 years old and is Female; FLANK PAIN TECHNIQUE: Axial computed tomography images of the abdomen and pelvis without intravenous contrast. Sagittal and coronal reformatted images were created and reviewed. This CT exam was performed usi ng one or more of the following dose reduction techniques: automated exposure control, adjustment o f the mA and/or kV according to patient size, and/or use of iterative reconstruction technique. COMPARISON: No relevant prior studies available. FINDINGS: Lung bases: Unremarkable. No mass. No consolidation. ABDOMEN: Liver: Unremarkable. Gallbladder and bile ducts: Unremarkable. No calcified stones. No ductal dilation. Pancreas: Unremarkable. No ductal dilation. Spleen: Unremarkable. No splenomegaly. Adrenals: Unremarkable. No mass. Kidneys and ureters: Unremarkable. No obstructing stones. No hydronephrosis. Stomach and bowel: Unremarkable. No obstruction. No mucosal thickening. PELVIS: Appendix: The appendix is normal. Bladder: Unremarkable. Reproductive: Unremarkable as visualized. ABDOMEN and PELVIS: Intraperitoneal space: Unremarkable. No free air. No significant fluid collection. Bones/joints: No acute fracture. No dislocation. Soft tissues: Subcutaneous emphysema in the lower right abdominal wall which may be due to inject ion. Vasculature: Unremarkable. No abdominal aortic aneurysm. Lymph nodes: Unremarkable. No enlarged lymph nodes. IMPRESSION: No acute finding in the abdomen/pelvis. Electronically signed by: Brodie River MD 05/24/2023 12:51 AM CDT Due to temporary technical issues with the PACS/Fluency reporting system, reports are being signed by the in house radiologists without review as a courtesy to insure prompt reporting. The interpreting radiologist is fully responsible for the content of the report.
--- NOTE | 2023-05-24 15:20 | P.PN ---
Subjective Date of Service: 05/24/23 Chief Complaint: Dizziness Patient reports her chest pain is worse with deep breathing. Blood pressure has been borderline low. No recorded fever. Physical Examination - Vital Signs Temperature: 96.9 F Blood Pressure: 96/57 Pulse: 62 Respirations: 14 Pulse Ox (%): 100 - Studies Laboratory Data (last 24 hrs) 05/23/23 05/23/23 05/23/23 22:36 22:36 22:36 WBC 9.60 Hgb 14.2 Hct 41.7 Plt Count 277 PT 11.0 INR 0.92 Sodium 134 L Potassium 3.3 L BUN 35 H Creatinine 2.67 H Glucose 101 Magnesium 2.5 H Total Bilirubin 0.2 AST 32 ALT 51 Alkaline Phosphatase 83 Lipase 56 Assessment And Plan - Plan Diagnosis NSTEMI Hypokalemia-acute HARVEY Acute cystitis Hypertension DM type 2 Assessment plan Elevated troponin Troponin trended down. Chest pain is atypical, worse with breathing. No ACS. Discontinue full dose Lovenox. Aspirin, beta-steve, statin. Cardiology input appreciated. Stress test as outpatient per cardiology Echocardiogram. Hold home antihypertensives due to borderline low BP. Acute renal failure. Possible underlying chronic kidney disease given DM. Serum creatinine trended down with IV fluid. Nephrology input appreciated. Continue aggressive IV hydration Continue to monitor renal function. Hypokalemia Hypokalemia 3.3, Trend electrolytes and replace as needed Acute cystitis Continue IV ceftriaxone. Follow urine culture DM type II Hemoglobin A1c of 6.5. Insulin sliding scale. Oral hypoglycemics on discharge. Full code DVT prophylaxis: Heparin SQ Discharge Plan: Home
[2023-05-24] MEDS ORDERED: ATORVASTATIN 40 MG TAB PO SCH (21:00)
[2023-05-24] MEDS ORDERED: ENOXAPARIN 80 MG/0.8 ML SQ SCH (21:00)
[2023-05-25] MEDS: NA CHLORIDE 0.9% 1,000 ML IV SCH ×2 (01:11→13:40)
[2023-05-25] MEDS: TRAMADOL HCL 50 MG TAB PO PRN ×2 (04:27→11:51)
[2023-05-25 05:09] LABS: Potassium 4.1 mEq/L (3.5-5.1)
[2023-05-25] MEDS: METOPROLOL TAR 25 MG TAB PO SCH (05:39)
[2023-05-25] MEDS ORDERED: REGADENOSON 0.4 MG/5 ML SYR IV ONE (07:22)
[2023-05-25] MEDS: CEFTRIAXONE 1,000 MG in NA CHLORIDE 0.9% 50 ML IVPB SCH (07:50)
[2023-05-25] MEDS: ASPIRIN 325 MG TAB PO SCH (07:51)
[2023-05-25] MEDS ORDERED: ENOXAPARIN 80 MG/0.8 ML SQ SCH (09:00)
--- NOTE | 2023-05-25 11:42 | RAD REPORT ---
EXAM DESCRIPTION: NM - Rest Stress Cardiac Imaging - 05/25/2023 9:04 am CLINICAL HISTORY: Chest pain. COMPARISON: None. TECHNIQUE: The patient was administered 10.7 mCi of Tc 99m Sestamibi prior to resting SPECT imaging of the heart. The patient was then administered 30.9 mCi of Tc 99m Sestamibi following exercise or ph armacologic stress. Multiplanar SPECT images were reviewed. FINDINGS: There is uniformity of radiotracer uptake involving the entire left ventricular myocardiu m on rest and stress images. The left ventricular ejection fraction equals 61% IMPRESSION: Negative for a myocardial perfusion defect
[2023-05-25 11:54] VITALS: BP 117/69; TEMP 97.1
--- NOTE | 2023-05-25 13:28 | P.DS ---
Admission Date: 05/23/23 Discharge Date: 05/25/23 Disposition: ROUTINE DISCHARGE Discharge Condition: FAIR Reason for Admission: Dizziness Brief History of Present Illness: 52-year-old -Lebanese female with a past medical history of hypertension, GERD, arthritis, gout, pneumonia, presented to the emergency room with dizziness. She reported associated generalized weakness and dizziness which started 3 weeks ago. She reported symptoms worse when standing up and improved by laying flat. She denied shortness of breath, denies chest pain radiation, edema, fever, cough, nausea vomiting diarrhea. Her initial troponin in the ED was mildly elevated. UA suggested the presence of UTI. Blood work suggested acute kidney injury given elevated creatinine. Patient blood pressure was soft. chest x-ray was clear. Patient was hospitalized for further management of troponin elevation, HARVEY and UTI. Hospital Course: Diagnosis NSTEMI Hypokalemia-acute HARVEY Acute cystitis Hypertension DM type 2 Patient admitted to the medical floor and the following medical problems addressed: Elevated troponin Troponin trended down. Chest pain is atypical, worse with breathing. No ACS. Nuclear stress test done shows no stress-induced ischemia Aspirin, beta-steve, statin. Patient seen and evaluated by cardiology Dr. Nielsen. Echocardiogram is pending to be followed. Held home antihypertensives due to borderline low BP. Acute renal failure. Possible underlying chronic kidney disease given DM. Serum creatinine trended down significantly with IV hydration. HARVEY almost resolved. Nephrology saw and evaluated patient and assisted with management Hypokalemia Corrected Acute cystitis Treated with IV ceftriaxone. Urine culture: Polymicrobial growth. Patient discharged with broad-spectrum Cefpodoxime DM type II Hemoglobin A1c of 6.5. Metformin on discharge. Vital Signs/Physical Exam: Temp Pulse Resp BP Pulse Ox 97.1 F 72 14 117/69 98 05/25/23 11:54 05/25/23 11:54 05/25/23 11:54 05/25/23 11:54 05/25/23 11:54 General: Alert, In no apparent distress, Oriented x3 HEENT: Mucous membr. moist/pink Neck: Supple, JVD not distended Respiratory: Clear to auscultation bilaterally, Normal air movement Cardiovascular: No edema, Regular rate/rhythm, Normal S1 S2 Gastrointestinal: Normal bowel sounds, Soft and benign, Non-distended, No tenderness Musculoskeletal: No swelling Integumentary: No rashes, No cyanosis Neurological: Normal strength at 5/5 x4 extr Laboratory Data at Discharge: WBC 7.80 thou/uL (4.3-10.9) 05/24/23 03:09 Hgb 12.4 g/dL (12.0-15.0) D 05/24/23 03:09 Hct 37.1 % (36.0-45.0) 05/24/23 03:09 Plt Count 246 thou/uL (152-406) 05/24/23 03:09 PT 11.0 SECONDS (9.2-12.8) 05/23/23 22:36 INR 0.92 05/23/23 22:36 Sodium 141 mEq/L (136-145) D 05/25/23 04:33 Potassium 4.1 mEq/L (3.5-5.1) D 05/25/23 04:33 BUN 19 mg/dL (7-18) H 05/25/23 04:33 Creatinine 1.20 mg/dL (0.55-1.02) H 05/25/23 04:33 Glucose 99 mg/dL (74-106) 05/25/23 04:33 Magnesium 2.4 mg/dL (1.6-2.4) 05/24/23 03:09 Total Bilirubin 0.2 mg/dL (0.2-1.0) 05/23/23 22:36 AST 32 U/L (15-37) 05/23/23 22:36 ALT 51 U/L (13-56) 05/23/23 22:36 Alkaline Phosphatase 83 U/L (45-117) 05/23/23 22:36 Triglycerides Cancelled 05/24/23 05:00 Cholesterol Cancelled 05/24/23 05:00 HDL Cholesterol Cancelled 05/24/23 05:00 Cholesterol/HDL Ratio Cancelled 05/24/23 05:00 Lipase 56 U/L (13-75) 05/23/23 22:36 Home Medications: Alprazolam [Xanax] 1 tab PO BEDTIME PRN 05/24/23 Aripiprazole [Abilify] 1 tab PO DAILY 05/24/23 Baclofen 1 tab PO Q12HR 05/24/23 Duloxetine HCl [Cymbalta] 1 tab PO DAILY 05/24/23 Famotidine 1 tab PO BEDTIME 05/24/23 Gabapentin 1 tab PO Q8HR 05/24/23 Hydrocodone 10/APAP 325 [[place] 10/325*] 5 mg PO Q8HR 05/24/23 PARoxetine HCL [Paroxetine HCl] 1 tab PO DAILY 05/24/23 Zolpidem Tartrate [Ambien*] 1 tab PO BEDTIME PRN 05/24/23 Aspirin [Aspirin EC 81 MG] 81 mg PO DAILY #30 tab 05/25/23 Atorvastatin Calcium [Lipitor] 40 mg PO BEDTIME #30 tab 05/25/23 Cefpodoxime Proxetil 100 mg PO BID #10 tab 05/25/23 New Medications: Aspirin [Aspirin EC 81 MG] 81 mg PO DAILY #30 tab Cefpodoxime Proxetil 100 mg PO BID #10 tab Atorvastatin Calcium [Lipitor] 40 mg PO BEDTIME #30 tab Diet: AHA Activity: Ad yuridia Followup: Deisi Alba MD [Primary Care Provider] - 1 Week Time spent managing pt's care (in minutes): 33
--- NOTE | 2023-05-25 17:17 | EKG ---
Test Date: 2023-05-23 Test Time: 21:01:45 Blow Off Worker: BACILIO MEASUREMENT RESULTS: Intervals: Rate: 79 RI: 114 QRSD: 78 QT: 386 QTc: 442 [place]: P: 76 RI: 114 QRS: 75 T: 247 INTERPRETIVE STATEMENTS: Normal sinus rhythm Right atrial enlargement ST & T wave abnormality, consider inferior ischemia ST & T wave abnormality, consider anterolateral ischemia Abnormal ECG Compared to ECG 07/21/2022 20:59:34 Sinus arrhythmia no longer present ST (T wave) deviation still present Possible ischemia still present Electronically Signed On 05-25-23 17:12:17 CDT by Alireza Nielsen
--- NOTE | 2023-05-25 18:39 | PN ---
Date of Progress Note: 05/25/2023 Subjective: Patient was seen by bedside. Doing clinically well. Does not have any further chest pa in. No shortness of breath. No nausea, vomiting, or diarrhea. Objective: Vital Signs: Reviewed. Head and Neck: Pupils are equal, reactive to light. Intact eye movements. No JVD. No cervical lym phadenopathy. Neck is supple. Thyroid is not enlarged. Lungs: Clear to auscultation bilaterally. No rhonchi, wheezing, or crackles. No accessory muscle u se. Heart: Regular rate and rhythm. No extra sounds. Abdomen: Soft, nontender. Bowel sounds positive. No organomegaly. No masses or hernia. No rigidi ty or rebound. Extremities: No edema, clubbing, or cyanosis. Intact pulses. Skin: No rash. No nodule. Neurologic: Alert, awake, oriented x3. No acute focal deficits appreciated. Investigations: Stress test was negative. Assessment And Plan: 1.Elevated troponin. This is demand. Stress test is negative. This is noncardiac and no further w orkup is needed. 2.Hypotension, likely due to the urinary tract infection, which is treated effectively. Blood press ure is back normal. 3.Dizziness due to hypotension. 4.Urinary tract infection, on antibiotics. Cardiology will sign off. SR/MODL Voice ID: [id number] Report ID: [id number]
--- NOTE | 2023-05-28 07:09 | ECHO ---
HEIGHT: 5 ft 3 in WEIGHT: 186 lb 3 oz DATE OF STUDY: 05/25/[address]: Alireza Nielsen 2-DIMENSIONAL: YES M.MODE: YES DOPPLER: YES COLOR FLOW: YES TDS: PORTABLE: YES DEFINITY: BUBBLE STUDY: DIAGNOSIS: CHEST PAIN CARDIAC HISTORY: CATHERIZATION: NO SURGERY: NO PROSTHETIC VALVE: NO PACEMAKER: NO MEASUREMENTS (cm) DIASTOLIC (NORMALS) SYSTOLIC (NORMALS) IVSd 1.0 (0.6-1.2) LA Diam 2.1 (1.9-4.0) LVEF 68% LVIDd 3.7 (3.5-5.7) LVIDs 2.3 (2.0-3.5) %FS 37% LVPWd 1.1 (0.6-1.2) Ao Diam 2.3 (2.0-3.7) 2 DIMENSIONAL ASSESSMENT: RIGHT ATRIUM: NORMAL LEFT ATRIUM: NORMAL RIGHT VENTRICLE: NORMAL LEFT VENTRICLE: NORMAL TRICUSPID VALVE: TRACE TRICUSPID REGURGITATION MITRAL VALVE: TRACE MITRAL REGURGITATION PULMONIC VALVE: NORMAL AORTIC VALVE: NORMAL PERICARDIAL EFFUSION: NONE AORTIC ROOT: NORMAL LEFT VENTRICULAR WALL MOTION: NORMAL DOPPLER/COLOR FLOW: SEE BELOW COMMENTS: 1. NORMAL LEFT VENTRICULAR EJECTION FRACTION 60-65% 2. NORMAL WALL MOTION 3. GRADE I DIASTOLIC DYSFUNCTION 4. TRACE MITRAL REGURGITATION, TRICUSPID REGURGITATION TECHNOLOGIST: ETTA DEL ROSARIO
--- NOTE | 2023-05-28 07:27 | TREADPHA ---
DX: CHEST PAIN Date of Study: 05/25/2023 Ht: 5' 3 " Wt: 186 lb 3 oz Consulting Physician: ALVINO MEDICATIONS: ALLERGY TO NAPROXIN, IBUPROFEN HISTORY: PHYSICIAL EXAMINATION: RESTING B.P.: 118/66 RESTING H.R.: 67 RESTING EKG: NORMAL SINUS RHYTHM WITH ST DEPRESSION INFEROLATERAL LEADS PROTOCOL: PHARMACOLOGIC EXERCISE TIME: 3:30 B.P. AT [place]AK STRESS: 117/61 IMPRESSION: LEXISCAN STRESS TEST PERFORMED. CARDIOLITE ADMINISTERED PER PROTOCOL. SEE NUCLEAR MEDICINE REPORT. NO SUPRAVENTRICULAR TACHYCARDIA, NO VENTRICULAR TACHYCARDIA, NO ARRHYTHMIAS NOTED. NO CHEST PAIN OR SHORTNESS OF BREATH. NON-DIAGNOSTIC ELECTROCARDIOGRAM PART DUE TO ABNORMAL BASELINE.
== END 2023-05-25 15:51 | disposition home or self-care (01) ==
LOC: ER 19:40 → ERHOLD 23:45 → 2ND 05-24 00:52
PROVIDERS: ADMIT Internal Medicine; ATTEND Internal Medicine
DX: I21.4 Non-ST elevation (NSTEMI) myocardial infarction (principal); E87.6 Hypokalemia; E86.0 Dehydration; N17.9 Acute kidney failure, unspecified; N30.00 Acute cystitis without hematuria; I10 Essential (primary) hypertension; K21.9 Gastro-esophageal reflux disease without esophagitis; M19.90 Unspecified osteoarthritis, unspecified site; M10.9 Gout, unspecified; J18.9 Pneumonia, unspecified organism; R53.1 Weakness; J98.11 Atelectasis; R77.8 Other specified abnormalities of plasma proteins; R73.9 Hyperglycemia, unspecified; R05.9 Cough, unspecified; I95.9 Hypotension, unspecified; I12.9 Hypertensive chronic kidney disease with stage 1 through stage 4 chronic kidney disease, or unspecified chronic kidney disease; N18.30 Chronic kidney disease, stage 3 unspecified; R80.9 Proteinuria, unspecified; E87.1 Hypo-osmolality and hyponatremia; E11.22 Type 2 diabetes mellitus with diabetic chronic kidney disease; R07.1 Chest pain on breathing; Z88.8 Allergy status to other drugs, medicaments and biological substances
CPT/HCPCS: 93005; 93017; 93306; 87088; 85025 ×2; 81001; 87086; 80048 ×3; 36415 ×2; 83735 ×2; 84132; 85610; 80061; 80076; 83036; 84484 ×4; 83690; 83880; 76377; 74176; 71045; 93970; 78452; 96372; 99285; J3480 ×2; J2785; J2405; J7030 ×4; J0696 ×3; A9500; G0378

== ENCOUNTER → 2023-09-12 | Emergency (ER) | payer BC, OTHER ==
[~2023-09-12] MED LIST: FAMOTIDINE 20 MG/2 ML VIAL IV ONE; NA CHLORIDE 0.9% 1,000 ML ONE; ONDANSETRON 4 MG/2 ML VIAL ONE
--- OUTSIDE RECORDS SUMMARY | 2023-09-12 12:23 | XMS REPORT | Continuity of Care Document ---
Author Name Unknown Address [address] [facility] [address] [place] [address] [facility] Address [address] [facility] 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 Name Role Phone NONE, NONE Primary Care Physician Unavailab le Doctor Unassigned, [place] Attending Clinician U navailable [email or web address] Attending Clinician Unavaila DR COLLETTE Gandhi Attending Clinician Unavail able ALIRIO, DR MURDOCK Attending Clinician Unavail denton WONG, DR MANAN Jamison Attending Clinician Unavaila DR MANAN Yuen Attending Clinician Unavaila vignesh LEGGETT, DR TANG Attending Clinician Unavaila DR LINDSEY Amaro Attending Clinician Unavailable CRISTY, DR SESAY Attending Clinician Unavailable OREN TOVAR Attending Clinician Unavailable Oren Tovar MD Attending Clinician ZELDA OLSEN Attending Clinician Unavailable Yuniel Mccray MD Attending Clinician [phone] Zelda Olsen MD Attending Clinician [phone] ANAYA KLINE Attending Clinician Unavailab pato Manzanares MD, Umm Attending Clinician [phone] Edgar YI, Ced Attending Clinician [phone] Jaden Siddiqui ENP Attending Clinician + [phone] DR LORAINE MELO Attending Clinician Julian VITAL, DR GONZALES Attending Clinician GABRIEL Vital Attending Clinician Unavailable Gabriel Garcia MD Attending Clinician [phone] WILMAR MADISON Attending Clinician UnavailWILMAR Santos Attending Clinician Unavaila ble 1, [facility] Sleep Lab Bed Attending Clinician Unavail able Wilmar Madison MD Attending Clinician + [phone] Only, [facility] Test Attending Clinician Unavailable Sobeida Bagley Attending Clinician [phone] BRO ANN Attending Clinician Unavailable Bro Mejia Attending Clinician +[phone] JADEN SIDDIQUI Attending Clinician Unavailable MAI DEL ROSARIO Attending Clinician Unavailab Mai Greco DO Attending Clinician [phone] JACKLYN GUILLEN Attending Clinician Unavailable Jacklyn Guillen MD Attending Clinician + [phone] Marjan Heart RN Attending Clinician [phone] GELY HERNANDEZ Attending Clinician Unavailable Gely Hernandez MD Attending Clinician [phone] WILFRID PEARSON Attending Clinician Unavailable Maury Brush MD Attending Clinician +[phone] Wilfrid Pearson DO Attending Clinician +[phone] Evelin GRAJEDA, Any Fong Attending Clinician Unavail able FLASH KIMBALL Attending Clinician Unavailab pato Talavera MD, Blanca Attending Clinician [phone] Josie YI, Samir Attending Clinician [phone] Faraz Parada MD Attending Clinician [phone] Flash Kimball MD Attending Clinician [phone] GABRIEL SHAIKH Attending Clinician Unavailable GABRIEL SHAIKH Attending Clinician Unavailable [email or web address]_S Admitting Clinician Unavaillindsay AMEZQUITA, DR MURDOCK Admitting Clinician Unavail able JUDITH, DR MANAN Jamison Admitting Clinician Unavaila vignesh LEGGETT, DR TANG Admitting Clinician Unavaila vignesh CAMERON, DR OPRTILLO Admitting Clinician Unavailable OLLEVI, DR SESAY Admitting Clinician Unavailable OREN TOVAR Admitting Clinician Unavailable ZELDA OLSEN Admitting Clinician Unavailable Zelda Olsen MD Admitting Clinician [phone] ANAYA KLINE Admitting Clinician Unavailab pato MELO, DR LORAINE SPEARS Admitting Clinician Unajagdeep VITAL, DR GONZALES Admitting Clinician GABRIEL Vital Admitting Clinician Unavailable BRO ANN Admitting Clinician Unavailable JADEN SIDDIQUI Admitting Clinician Unavailable MAI DEL ROSARIO Admitting Clinician Unavailab JACKLYN Figueroa Admitting Clinician Unavailable GELY HERNANDEZ Admitting Clinician Unavailable Gely Hernandez MD Admitting Clinician [phone] WILFRID PEARSON Admitting Clinician Unavailable TeqwimWilfrid orellana DO Admitting Clinician [phone] FARAZ PARADA Admitting Clinician Unavailable Faraz Parada MD Admitting Clinician [phone] Payers Payer Name Policy Type Policy Number Effective Date Expirati on Date Source 0111 [id number] 2023 00:00:00 1014 [id number] 1959 00:00:00 Problems Condition Name Condition Details Condition Category Status Onset Date Resolution Date Last Treatment Date Treating Clinician Comments Source Chest pain, unspecifie d type Chest pain, unspecifie d type Disease Active 3-05 00:00: 00 [facility] SOB (shortness of breath) SOB (shortness of breath) Disease Active 2021-09 0-23 00:00: 00 [facility] Chest pain Chest pain Disease Active 2021-09 0-22 00:00: 00 [facility] Transient alteration of awareness Transient alteration of awareness Disease Active 6-25 00:00: 00 [facility] Transient alteration of awareness Transient alteration of awareness Disease Active 6-25 00:00: 00 [facility] Gastric ulcer Gastric ulcer Disease Active 6-22 00:00: 00 [facility] Pneumonia Pneumonia Disease Active 4-04 00:00: 00 [facility] Acute asthma exacerbati on Acute asthma exacerbati on Disease Active 4-02 00:00: 00 [facility] Sepsis Sepsis Disease Active 3-09 00:00: 00 [facility] Morbid obesity with body mass index of 40.0-49.9 Morbid obesity with body mass index of 40.0-49.9 Disease Active 2-14 00:00: 00 [facility] Obesity (BMI 30-39.9) Obesity (BMI 30-39.9) Disease Active 2-12 00:00: 00 [facility] Acute hypoxemic respirator y failure Acute hypoxemic respirator y failure Disease Active 2-12 00:00: 00 [facility] 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 Disease Active 2-04 00:00: 00 [facility] Dyslipidem ia Dyslipidem ia Disease Active 2-04 00:00: 00 [facility] Gastro-eso phageal reflux disease with esophagiti s, with bleeding Gastro-eso phageal reflux disease with esophagiti s, with bleeding Disease Active 2-04 00:00: 00 [facility] Generalize d anxiety disorder Generalize d anxiety disorder Disease Active 2-04 00:00: 00 [facility] Pain of cervical spine Pain of cervical spine Disease Active 2-04 00:00: 00 [facility] Depo-Prove ra contracept lloyd status Depo-Prove ra contracept lloyd status Disease Active - 00:00: 00 [facility] Eczema Eczema Disease Active 04-15 00:00: 00 [facility] Essential hypertensi on Essential hypertensi on Disease Active 04-15 00:00: 00 [facility] Back pain Back pain Disease Active 2-06 00:00: 00 [facility] Allergies, Adverse Reactions, Alerts Allergy Name Allergy Type Status Severity Reaction(s) Onset Date Inactive Date Treating Clinician Comments Source IBUPROFE N DRUG INGREDI Active Other-Cmnt 4- 00:00: 00 [facility] Ibuprofe n Propensi ty to adverse reaction s Active Other - See comments 4- 00:00: 00 ulcer [facility] IBUPROFE N-ACETAM INOPHEN DRUG Active SOB 2021-09 0-23 00:00: 00 [facility] Ibuprofe n-Acetam inophen Propensi ty to adverse reaction s Active Shortness of Breath 2021-09 0-23 00:00: 00 [facility] Naproxen - Oral Propensi ty to adverse reaction to drug Active 5-28 00:00: 00 SEAFOOD/ FISH Food Active High Anaphylaxis 0 4-02 00:00: 00 [facility] Seafood/ Fish Food Allergy Active Anaphylaxis 4-02 00:00: 00 Pts tongue swells/ difficult y breathing [facility] Nsaids (Non-Madan roidal Anti-Inf lammator y Drug) Propensi ty to adverse reaction s Active Unknown - See comments 2-12 00:00: 00 [facility] NSAIDS (NON-MADAN ROIDAL ANTI-INF LAMMATOR Y DRUG) Drug Class Active Unknown-Cmnt 2-12 00:00: 00 [facility] Nsaids (Non-Madan roidal Anti-Inf lammator y Drug) Propensi ty to adverse reaction s Active Unknown - See comments 2-12 00:00: 00 [facility] Nsaids (Non-Madan roidal Anti-Inf lammator y Drug) Propensi ty to adverse reaction s Active Unknown - See comments 10-15 00:00: 00 [facility] Naproxen Propensi ty to adverse reaction to drug Active 10-25 00:00: 00 naproxen DA Active SV 10-30 00:00: 00 [facility] Naproxen Drug Allergy Active Other - See comments 03-11 00:00: 00 Swelling of tongueSwe lling of the tongue [facility] Naproxen Propensi ty to adverse reaction s to drug Active Swelling 03-11 00:00: 00 Swelling of tongue [facility] NAPROXEN DRUG INGREDI Active High Swelling 03-11 00:00: 00 [facility] Naproxen DA Active Unknown [facility] Ibuprofe n DA Active Unknown [facility] Social History Social Habit Start Date Stop Date Quantity Comments Source History SDOH Alcohol Std Drinks [facility] History SDOH Alcohol Binge [facility] SD[facility] Alcohol Frequency [facility] Exposure to SARS-CoV-2 (event) 2022-11-30 00:00:00 2022-12-10 19:00:00 Not sure [facility] Alcohol intake 2022-11-05 00:00:00 2022-11-05 00:00:00 Current drinker of alcohol (finding) [facility] Tobacco Comment 2022-07-25 00:00:00 2022-07-25 00:00:00 30 years ago [facility] Cigarettes smoked current (pack per day) - Reported 2022-07-25 00:00:00 2022-07-25 00:00:00 [facility] Cigarette pack-years 2022-07-25 00:00:00 2022-07-25 00:00:00 [facility] Tobacco use and exposure 2022-07-25 00:00:00 2022-07-25 00:00:00 Smokeless tobacco non-user [facility] History of Social function 2021-10-21 00:00:00 2021-10-21 00:00:00 [facility] Education - What is the highest level of school you have completed or the highest degree you have received? 2021-10-15 00:00:00 2021-10-15 00:00:00 12th grade [facility] Alcohol Comment 2016-12-14 00:00:00 2016-12-14 00:00:00 infrequent - family parties, wine, 12 oz/time [facility] History of tobacco use 2001-12-14 00:00:00 Cigarette Smoker [facility] Sex Assigned At 1970 00:00:00 1970 00:00:00 [facility] Smoking Status Start Date Stop Date Source Ex-smoker 2022-07-25 00:00:00 2022-07-25 [facility] Ordered Medication Name Filled Medication Name Start Date Stop Date Current Medication? Ordering Clinician Indication Dosage Frequency Signature (SIG) Comments Components Source ondansetron (ZOFRAN-ODT ) disintegrat ing tablet 4 mg 12-11 02:30: 00 12-11 01:43 :00 No 4mg 4 mg, Oral, ONCE, 1 dose, On 12/10/22 at 2130, [facility] predniSONE (DELTASONE) tablet 40 mg 12-11 01:45: 00 12-11 01:43 :00 No 40mg 40 mg, Oral, ONCE, 1 dose, On 12/10/22 at 2044, [facility] HYDROcodone -acetaminop hen (NORCO 5) 5-325 mg tablet 1 tablet 12-11 01:45: 00 12-11 01:43 :00 No 1{tbl} 1 tablet, Oral, ONCE, 1 dose, On 12/10/22 at 2044, [facility] ondansetron 4 mg disintegrat ing tablet 12-10 00:00: 00 Yes [id number] 4mg Take 1 tablet by mouth every 4 (four) hours as needed for Nausea and Vomiting (N/V). [facility] ondansetron 4 mg disintegrat ing tablet 12-10 00:00: 00 Yes [id number] 4mg Take 1 tablet by mouth every 4 (four) hours as needed for Nausea and Vomiting (N/V). [facility] ondansetron 4 mg disintegrat ing tablet 12-10 00:00: 00 Yes [id number] 4mg Take 1 tablet by mouth every 4 (four) hours as needed for Nausea and Vomiting (N/V). [facility] predniSONE 20 mg tablet 12-10 00:00: 00 12-16 04:59 :00 No [id number] 40mg Take 2 tablets by mouth in the morning for 5 days. [facility] carvediloL (COREG) tablet 3.125 mg 11-05 23:00: 00 Yes 3.125mg 3.125 mg, Oral, BID MEALS, First dose on Sun11/05/22 at 1700, Until Discontinu ed, Routine [facility] enoxaparin (LOVENOX) injection 40 mg 11-05 23:00: 00 Yes 40mg 40 mg, Subcutaneo us, DAILY, First dose on Sun11/05/22 at 1700, Until Discontinu ed, Routine [facility] hydrOXYzine 25 mg tablet 11-05 17:13: 13 Yes 25mg Take 1 tablet by mouth. [facility] lisinopriL 20 mg tablet 11-05 17:13: 13 Yes 20mg Take 1 tablet by mouth in the morning. [facility] gabapentin 100 mg capsule 11-05 17:13: 13 Yes 100mg Take 1 capsule by mouth in the morning and 1 capsule in the evening. [facility] acetaminoph en-codeine (TYLENOL-CO DEINE #4) 300-60 mg tablet 11-05 17:13: 13 Yes 1{tbl} Take 1 tablet by mouth every 4 (four) hours as needed for Pain. [facility] celecoxib (CELEBREX) 50 mg capsule 11-05 17:13: 13 Yes 50mg Take 1 capsule by mouth in the morning. [facility] hydrOXYzine 25 mg tablet 3-0 - 17:13: 13 Yes 25mg Take 1 tablet by mouth. [facility] lisinopriL 20 mg tablet 3-0 11-05 17:13: 13 Yes 20mg Take 1 tablet by mouth in the morning. [facility] gabapentin 100 mg capsule 2022-0 11-05 17:13: 13 Yes 100mg Take 1 capsule by mouth in the morning and 1 capsule in the evening. [facility] acetaminoph en-codeine (TYLENOL-CO DEINE #4) 300-60 mg tablet 2022-0 11-05 17:13: 13 Yes 1{tbl} Take 1 tablet by mouth every 4 (four) hours as needed for Pain. [facility] celecoxib (CELEBREX) 50 mg capsule 2022-0 11-05 17:13: 13 Yes 50mg Take 1 capsule by mouth in the morning. [facility] hydrOXYzine 25 mg tablet 2022-0 11-05 17:13: 13 Yes 25mg Take 1 tablet by mouth. [facility] lisinopriL 20 mg tablet 2022-0 11-05 17:13: 13 Yes 20mg Take 1 tablet by mouth in the morning. [facility] gabapentin 100 mg capsule 2022-0 11-05 17:13: 13 Yes 100mg Take 1 capsule by mouth in the morning and 1 capsule in the evening. [facility] acetaminoph en-codeine (TYLENOL-CO DEINE #4) 300-60 mg tablet 3-0 11-05 17:13: 13 Yes 1{tbl} Take 1 tablet by mouth every 4 (four) hours as needed for Pain. [facility] celecoxib (CELEBREX) 50 mg capsule 3-0 11-05 17:13: 13 Yes 50mg Take 1 capsule by mouth in the morning. [facility] hydrOXYzine 25 mg tablet 3-0 - 17:13: 13 Yes 25mg Take 1 tablet by mouth. [facility] lisinopriL 20 mg tablet 11-05 17:13: 13 Yes 20mg Take 1 tablet by mouth in the morning. [facility] gabapentin 100 mg capsule 11-05 17:13: 13 Yes 100mg Take 1 capsule by mouth in the morning and 1 capsule in the evening. [facility] acetaminoph en-codeine (TYLENOL-CO DEINE #4) 300-60 mg tablet 11-05 17:13: 13 Yes 1{tbl} Take 1 tablet by mouth every 4 (four) hours as needed for Pain. [facility] celecoxib (CELEBREX) 50 mg capsule 11-05 17:13: 13 Yes 50mg Take 1 capsule by mouth in the morning. [facility] hydrOXYzine 25 mg tablet 11-05 17:13: 13 Yes 25mg Take 1 tablet by mouth. [facility] lisinopriL 20 mg tablet 11-05 17:13: 13 Yes 20mg Take 1 tablet by mouth in the morning. [facility] gabapentin 100 mg capsule 11-05 17:13: 13 Yes 100mg Take 1 capsule by mouth in the morning and 1 capsule in the evening. [facility] acetaminoph en-codeine (TYLENOL-CO DEINE #4) 300-60 mg tablet 11-05 17:13: 13 Yes 1{tbl} Take 1 tablet by mouth every 4 (four) hours as needed for Pain. [facility] celecoxib (CELEBREX) 50 mg capsule 11-05 17:13: 13 Yes 50mg Take 1 capsule by mouth in the morning. [facility] amLODIPine (NORVASC) tablet 10 mg 11-05 15:00: 00 Yes 10mg 10 mg, Oral, DAILY, First dose on 11/05/22 at 0900, Until Discontinu ed, Routine [facility] metoprolol tartrate (LOPRESSOR) tablet 25 mg 11-05 14:00: 00 11-05 17:41 :07 No 25mg 25 mg, Oral, TID, First dose on 11/05/22 at 0800, Until Discontinu ed, Routine [facility] traMADoL (ULTRAM) tablet 50 mg 11-05 13:36: 11 11-07 13:35 :11 No 50mg 50 mg, Oral, Q6HPRN, Starting on Sun11/05/22 at 0736, Until Sun11/07/22 at 0735, Routine, Pain (scale 7-10) [facility] ondansetron (ZOFRAN (PF)) injection 4 mg 11-05 13:35: 52 11-07 13:34 :52 No 4mg 4 mg, Slow IV Push, Q6HPRN, Starting on Sun11/05/22 at 0735, Until Sun11/07/22 at 0734, Routine, Nausea and Vomiting (N/V) [facility] acetaminoph en (TYLENOL) tablet 650 mg 11-05 11:26: 43 Yes 650mg 650 mg, Oral, Q6HPRN, Starting on Sun11/05/22 at 0526, Until Discontinu ed, Routine, Pain (scale 1-3) [facility] zolpidem (AMBIEN) tablet 10 mg 11-05 11:25: 41 Yes 10mg 10 mg, Oral, QHSPRN, Starting on Sun11/05/22 at 0525, Until Discontinu ed, Routine, Insomnia [facility] ALPRAZolam (XANAX) tablet 1 mg 11-05 11:25: 00 Yes 1mg 1 mg, Oral, TIDPRN, Starting on Sun11/05/22 at 0525, Until Discontinu ed, Routine, Anxiety [facility] morpHINE (4 mg/mL) injection 4 mg 11-05 10:45: 00 11-05 10:08 :00 No 4mg 4 mg, Slow IV Push, ONCE, 1 dose, On Sun11/05/22 at 0445, SE [facility] proMETHazin e (PHENERGAN) 12.5 mg in NS 50 mL IV piggyback (CNR) 11-05 09:15: 00 11-05 10:05 :00 No 12.5mg 12.5 mg, IV Piggyback, at 200 mL/hr Administer over 15 Minutes, ONCE, 1 dose, On 11/05/22 at 0315, [facility] iopamidol (ISOVUE 370-500 mL) injection 85 mL 11-05 08:55: 00 11-05 09:15 :00 No [id number] 85mL 85 mL, Intravenou s, ONCE, 1 dose, On 11/05/22 at 0315, Routine [facility] ondansetron (ZOFRAN (PF)) injection 4 mg 11-05 05:00: 00 11-05 07:12 :00 No 4mg 4 mg, Slow IV Push, ONCE, 1 dose, On 11/04/22 at 2300, [facility] morpHINE (4 mg/mL) injection 4 mg 11-05 05:00: 00 11-05 07:12 :00 No 4mg 4 mg, Slow IV Push, ONCE, 1 dose, On 11/04/22 at 2300, [facility] carvediloL 3.125 mg tablet 11-05 00:00: 00 12-06 04:59 :00 No [id number] 3.125mg Take 1 tablet by mouth in the morning and 1 tablet in the evening. Take with meals. Do all this for 30 days. [facility] carvediloL 3.125 mg tablet 11-05 00:00: 00 12-06 04:59 :00 No [id number] 3.125mg Take 1 tablet by mouth in the morning and 1 tablet in the evening. Take with meals. Do all this for 30 days. [facility] TAKE 1 TABLET DAILY. 09-25 00:00: 00 No 20 TAKE 1 TABLET DAILY. - 00:00: 00 No 10 METHOCARBAM 500MG - 00:00: 00 No TAKE 1 TABLET DAILY. - 00:00: 00 No 10 METHOCARBAM 500MG 2022-0 1-19 00:00: 00 No LISINOPRIL 10MG 2022-0 1-19 00:00: 00 No TAKE 1 TABLET BY MOUTH EVERY DAY 2022-0 1-19 00:00: 00 No DICLOFEN SOD 100MG ER 2022-0 1-18 00:00: 00 No DICLOFEN SOD 100MG ER 2022-0 1-18 00:00: 00 No TAKE 1 TABLET BY MOUTH EVERY DAY FOR 90 DAYS 2022-0 1-18 00:00: 00 No FAMOTIDINE 40MG 2022-0 1-13 00:00: 00 No SPIRONOLACT 25MG 2022-0 1-13 00:00: 00 No 1 TABLET(S) DAILY EVENING ORAL 2022-0 1-13 00:00: 00 No TAKE 1 TABLET BY MOUTH EVERY 8 HOURS NEEDED 2022-0 1-13 00:00: 00 No ONDANSETRON 4MG 2022-0 1-13 00:00: 00 No 4 FAMOTIDINE 40MG 2022-0 1-13 00:00: 00 No SPIRONOLACT 25MG 2022-0 1-13 00:00: 00 No 1 TABLET(S) DAILY EVENING ORAL 2022-0 1-13 00:00: 00 No TAKE 1 TABLET BY MOUTH EVERY 8 HOURS NEEDED 2022-0 1-13 00:00: 00 No ONDANSETRON 4MG 2022-0 1-13 00:00: 00 No TAKE 1 CAPSULE BY MOUTH ONE TIME PER WEEK 2022-0 1-07 00:00: 00 No VITAMIN D3 50,000IU 2022-0 1-07 00:00: 00 No TAKE 1 CAPSULE BY MOUTH ONE TIME PER WEEK 2022-0 1-07 00:00: 00 No VITAMIN D3 50,000IU 2022-0 1-07 00:00: 00 No TAKE 1 TABLET BY MOUTH EVERY DAY 2021-1 - 00:00: 00 No TAKE 1 TABLET BY MOUTH EVERY DAY 2021-1 - 00:00: 00 No TAKE 1 TABLET BY MOUTH EVERY 8 HOURS 2021-1 10-29 00:00: 00 No TAKE 1 TABLET BY MOUTH EVERY 8 HOURS 2021-1 - 00:00: 00 No TAKE 1 TABLET BY MOUTH AT BEDTIME NEEDED FOR PAIN 2021-09 00:00: 00 No TAKE 1 TABLET BY MOUTH AT BEDTIME NEEDED FOR PAIN 2021-09 00:00: 00 No VITAMIN D3 50,000IU 2021-09 00:00: 00 No CYCLOBENZAP RINE HYDROCHLO 10MG TAB 2021-09 00:00: 00 No TAKE 2 PUFFS BY MOUTH EVERY 4 TO 6 HOURS 2021-09 00:00: 00 No TAKE 1 TABLET BY MOUTH TWICE A DAY FOR 30 DAYS 2021-09 00:00: 00 No TIZANIDINE 2MG TAB 2021-09 00:00: 00 No GABAPENTIN 300MG 2021-09 00:00: 00 No PLEASE SEE ATTACHED FOR DETAILED DIRECTIONS 2021-09 00:00: 00 No TAKE 1 CAPSULE BY MOUTH EVERY DAY 2021-09 00:00: 00 No ZOLPIDEM TARTRATE 10MG TAB 2021-09 00:00: 00 No SPIRONOLACT 50MG TAB 2021-09 00:00: 00 No BUSPIRONE HYDROCHLORI DE 5MG TAB 2021-09 00:00: 00 No BREO ELLIPTA 200-25 INH 2021-09 00:00: 00 No Dose Unknown 2021-09 00:00: 00 No TAKE 1 TABLET BY MOUTH EVERY DAY 2021-09 00:00: 00 No METFORMIN ER 500MG GP TAB 2021-09 00:00: 00 No PREDNISONE 10MG TAB 2021-09 00:00: 00 No LOSARTAN/HC T 50-12.5 TAB 2021-09 00:00: 00 No Dose Unknown 2021-09 00:00: 00 No ARIPIPRAZOL E 5MG TAB 2021-09 00:00: 00 No PLEASE SEE ATTACHED FOR DETAILED DIRECTIONS 2021-09 00:00: 00 No Dose Unknown 2021-09 00:00: 00 No TAKE 1 TABLET BY MOUTH EVERY DAY FOR 30 DAYS 2021-09 00:00: 00 No TAKE 1 TABLET BY MOUTH EVERY 8 HOURS 2021-09 00:00: 00 No TAKE 6 TABLETS ON DAY 1 DIRECTED ON PACKAGE AND DECREASE BY 1 TAB EACH DAY FOR A TOTAL OF 6 DAYS 2021-09 00:00: 00 No METHOCARBAM OL 750MG TAB 2021-09 2-14 00:00: 00 No HYDROCHLORO THIAZIDE 12.5MG 2021-09 214 00:00: 00 No Dose Unknown 2021-09 2 00:00: 00 No Dose Unknown 2021-09 00:00: 00 No 4 Dose Unknown 2021-09 00:00: 00 No ACETAMINOPH EN/CODEINE #3 TAB 2021-09 00:00: 00 No HYDROCODONE BITARTRATE/ AC 5-325MG TAB 2021-09 00:00: 00 No Dose Unknown 2021-09 00:00: 00 No TAKE 1 TABLET BY MOUTH TWICE A DAY NEEDED 2021-09 00:00: 00 No 4 Dose Unknown 2021-09 00:00: 00 No 4 TAKE 1 TABLET BY MOUTH EVERY DAY 2021-09 00:00: 00 No Dose Unknown 2021-09 00:00: 00 No Dose Unknown 2021-09 00:00: 00 No Dose Unknown 2021-09 00:00: 00 No Dose Unknown 2021-09 00:00: 00 No BENZONATATE 100MG 2021-09 2 00:00: 00 No 100 TAKE 1 TABLET BY MOUTH EVERY DAY 2021-09 00:00: 00 No 4 Dose Unknown 2021-09 2 00:00: 00 No Dose Unknown 2021-09 2- 00:00: 00 No Dose Unknown 2021-09 2 00:00: 00 No Dose Unknown 2021-09 2 00:00: 00 No TAKE 2 TABLETS BY MOUTH EVERY 4 TO 6 HOURS NEEDED FOR PAIN 2021-09- 00:00: 00 No TAKE 1 CAPSULE BY MOUTH EVERY 8 HOURS 2021-09 2- 00:00: 00 No 100 1 TABLET ORALLY EVERY 6 HRS FOR 5 DAYS 2021-09 2- 00:00: 00 No Dose Unknown 2021-09 2-14 00:00: 00 No Dose Unknown 2022-1 2-14 00:00: 00 No Dose Unknown 2022-1 2-14 00:00: 00 No Dose Unknown 2022-1 2-14 00:00: 00 No Dose Unknown 2022-1 2-14 00:00: 00 No Dose Unknown 2022-1 2-14 00:00: 00 No Dose Unknown 2022-1 2-14 00:00: 00 No Dose Unknown 2022-1 2-14 00:00: 00 No Dose Unknown 2022-1 2-14 00:00: 00 No Dose Unknown 2022-1 2-14 00:00: 00 No Dose Unknown 2022-1 2-14 00:00: 00 No Dose Unknown 2022-1 2-14 00:00: 00 No Dose Unknown 2022-1 2-14 00:00: 00 No Dose Unknown 2022-1 2-14 00:00: 00 No Dose Unknown 2022-1 2-14 00:00: 00 No Dose Unknown 2022-1 2-14 00:00: 00 No Dose Unknown 2022-1 2-14 00:00: 00 No Dose Unknown 2022-1 2-14 00:00: 00 No 25 Dose Unknown 2022-1 2-14 00:00: 00 No Dose Unknown 2022-1 2-14 00:00: 00 No Dose Unknown 2022-1 2-14 00:00: 00 No Dose Unknown 2022-1 2-14 00:00: 00 No Dose Unknown 2022-1 2-14 00:00: 00 No Dose Unknown 2022-1 2-14 00:00: 00 No Dose Unknown 2022-1 2-14 00:00: 00 No Dose Unknown 2022-1 2-14 00:00: 00 No Dose Unknown 2022-1 2-14 00:00: 00 No Dose Unknown 2022-1 2-14 00:00: 00 No Dose Unknown 2022-1 2-14 00:00: 00 No Dose Unknown 2022-1 2-14 00:00: 00 No Dose Unknown 2022-1 2-14 00:00: 00 No VITAMIN D3 50,000IU 2-1 2-14 00:00: 00 No CYCLOBENZAP RINE HYDROCHLO 10MG TAB 2-1 2-14 00:00: 00 No TAKE 2 PUFFS BY MOUTH EVERY 4 TO 6 HOURS 2022-1 2-14 00:00: 00 No TAKE 1 TABLET BY MOUTH TWICE A DAY FOR 30 DAYS 2021-09 00:00: 00 No TIZANIDINE 2MG TAB 2021-09 00:00: 00 No GABAPENTIN 300MG 2021-09 00:00: 00 No PLEASE SEE ATTACHED FOR DETAILED DIRECTIONS 2021-09 00:00: 00 No TAKE 1 CAPSULE BY MOUTH EVERY DAY 2021-09 00:00: 00 No ZOLPIDEM TARTRATE 10MG TAB 2021-09 00:00: 00 No SPIRONOLACT 50MG TAB 2021-09 00:00: 00 No BUSPIRONE HYDROCHLORI DE 5MG TAB 2021-09 00:00: 00 No BREO ELLIPTA 200-25 INH 2021-09 00:00: 00 No Dose Unknown 2021-09 00:00: 00 No TAKE 1 TABLET BY MOUTH EVERY DAY 2021-09 00:00: 00 No METFORMIN ER 500MG GP TAB 2021-09 00:00: 00 No PREDNISONE 10MG TAB 2021-09 00:00: 00 No LOSARTAN/HC T 50-12.5 TAB 2021-09 00:00: 00 No Dose Unknown 2021-09 00:00: 00 No ARIPIPRAZOL E 5MG TAB 2021-09 00:00: 00 No PLEASE SEE ATTACHED FOR DETAILED DIRECTIONS 2021-09 00:00: 00 No Dose Unknown 2021-09 00:00: 00 No TAKE 1 TABLET BY MOUTH EVERY DAY FOR 30 DAYS 2021-09 00:00: 00 No TAKE 1 TABLET BY MOUTH EVERY 8 HOURS 2021-09 00:00: 00 No TAKE 6 TABLETS ON DAY 1 DIRECTED ON PACKAGE AND DECREASE BY 1 TAB EACH DAY FOR A TOTAL OF 6 DAYS 2021-09 00:00: 00 No METHOCARBAM OL 750MG TAB 2021-09 00:00: 00 No HYDROCHLORO THIAZIDE 12.5MG 2021-09 00:00: 00 No Dose Unknown 2021-09 00:00: 00 No Dose Unknown 2022-1 2-14 00:00: 00 No 4 Dose Unknown 2021-09 214 00:00: 00 No ACETAMINOPH EN/CODEINE #3 TAB 2021-09 214 00:00: 00 No HYDROCODONE BITARTRATE/ AC 5-325MG TAB 2021-09 214 00:00: 00 No Dose Unknown 2021-09 214 00:00: 00 No TAKE 1 TABLET BY MOUTH TWICE A DAY NEEDED 2021- 2-14 00:00: 00 No 4 Dose Unknown 2021-09 2-14 00:00: 00 No 4 TAKE 1 TABLET BY MOUTH EVERY DAY 2021- 2-14 00:00: 00 No Dose Unknown 2021-09 214 00:00: 00 No Dose Unknown 2021-09 214 00:00: 00 No Dose Unknown 2021-09 214 00:00: 00 No Dose Unknown 2021-09 214 00:00: 00 No BENZONATATE 100MG 2021-09 2-14 00:00: 00 No 100 TAKE 1 TABLET BY MOUTH EVERY DAY 2021- 2-14 00:00: 00 No 4 Dose Unknown 2021-09 214 00:00: 00 No Dose Unknown 2021-09 214 00:00: 00 No Dose Unknown 2021-09 214 00:00: 00 No Dose Unknown 2021-09 2-14 00:00: 00 No TAKE 2 TABLETS BY MOUTH EVERY 4 TO 6 HOURS NEEDED FOR PAIN 2021- 214 00:00: 00 No TAKE 1 CAPSULE BY MOUTH EVERY 8 HOURS 2021- 2-14 00:00: 00 No 100 1 TABLET ORALLY EVERY 6 HRS FOR 5 DAYS 2021- 2-14 00:00: 00 No Dose Unknown 2021-09 2-14 00:00: 00 No Dose Unknown 2021- 2-14 00:00: 00 No Dose Unknown 2021-09 2-14 00:00: 00 No Dose Unknown 2021-09 2-14 00:00: 00 No Dose Unknown 2021-09 2-14 00:00: 00 No Dose Unknown 2021-09 2-14 00:00: 00 No Dose Unknown 2021-09 2-14 00:00: 00 No Dose Unknown 2021-09 2-14 00:00: 00 No Dose Unknown 2022-1 2-14 00:00: 00 No Dose Unknown 2021-1 2-14 00:00: 00 No Dose Unknown 2021-1 2-14 00:00: 00 No Dose Unknown 2021-1 2-14 00:00: 00 No Dose Unknown 2021-1 2-14 00:00: 00 No Dose Unknown 2021-1 2-14 00:00: 00 No Dose Unknown 2021-1 2-14 00:00: 00 No Dose Unknown 2021-1 2-14 00:00: 00 No Dose Unknown 2021-1 2-14 00:00: 00 No Dose Unknown 2021-1 2-14 00:00: 00 No Dose Unknown 2021-1 2-14 00:00: 00 No Dose Unknown 2021-1 2-14 00:00: 00 No Dose Unknown 2021-1 2-14 00:00: 00 No Dose Unknown 2021-1 2-14 00:00: 00 No Dose Unknown 2021-1 2-14 00:00: 00 No Dose Unknown 2021-1 2-14 00:00: 00 No Dose Unknown 2021-1 2-14 00:00: 00 No Dose Unknown 2021-1 2-14 00:00: 00 No Dose Unknown 2021-1 2-14 00:00: 00 No Dose Unknown 2021-1 2-14 00:00: 00 No Dose Unknown 2021-1 2-14 00:00: 00 No Dose Unknown 2021-1 2-14 00:00: 00 No Dose Unknown 2021-1 2-14 00:00: 00 No ZOLPIDEM ER 12.5MG 2021-1 2-12 00:00: 00 No ZOLPIDEM ER 12.5MG 2021-1 2-12 00:00: 00 No TAKE 1 TABLET BY MOUTH EVERY 12 HOURS FOR 7 DAYS 2021- 2- 00:00: 00 No TAKE 1 TABLET BY MOUTH TWICE A DAY 2021- 2- 00:00: 00 No TAKE 1 TABLET BY MOUTH EVERY 12 HOURS FOR 7 DAYS 2021-09 2- 00:00: 00 No 4 TAKE 1 TABLET BY MOUTH TWICE A DAY 2021- 2- 00:00: 00 No INJECT 1 ML INTRAMUSCUL JUDIE ONCE EVERY 3 MONTHS. 2021-09 2 00:00: 00 No 150 Dose Unknown 2021-09 2 00:00: 00 No METOPROL TAR 25MG 2021-09 2 00:00: 00 No 25 TAKE 1 TABLET BY MOUTH EVERY 12 HOURS FOR 7 DAYS 2021-09 2 00:00: 00 No 4 TAKE 1 TABLET BY MOUTH TWICE A DAY 2021-09 2 00:00: 00 No INJECT 1 ML INTRAMUSCUL JUDIE ONCE EVERY 3 MONTHS. 2021-09 2 00:00: 00 No 150 Dose Unknown 2021-09 2 00:00: 00 No METOPROL TAR 25MG 2021-09 2 00:00: 00 No TAKE 1 TABLET BY MOUTH TWICE A DAY 2021-09 00:00: 00 No 5 TAKE 1 TABLET BY MOUTH TWICE A DAY 2021-09 2 00:00: 00 No 5 CELECOXIB 200MG 2021-09 2 00:00: 00 No Dose Unknown 2021-09 2 00:00: 00 No TAKE 1 TABLET BY MOUTH TWICE A DAY 2021-09 2 00:00: 00 No 5 CELECOXIB 200MG 2021-09 00:00: 00 No Dose Unknown 2021-09 2 00:00: 00 No VITAMIN D3 50,000IU 2021-09 2 00:00: 00 No APAP/CODEIN E #4 2021-09 00:00: 00 No APAP/CODEIN E #4 2021-09 00:00: 00 No OMEPRAZOLE 20MG 2021-09 00:00: 00 No TAKE 1 CAPSULE BY MOUTH EVERY 8 HOURS 2021-09 00:00: 00 No TAKE 2 TABLETS BY MOUTH EVERY DAY 2021-09 00:00: 00 No 100 OMEPRAZOLE 20MG 2021-09 00:00: 00 No TAKE 1 CAPSULE BY MOUTH EVERY 8 HOURS 2021-09 00:00: 00 No TAKE 2 TABLETS BY MOUTH EVERY DAY 2021-09 00:00: 00 No TAKE 1 TABLET BY MOUTH EVERY 8 HOURS NEEDED 2021-09 00:00: 00 No hydrOXYzine 25 mg tablet 2021-09 14:01: 35 Yes 25mg Take 25 mg by mouth. [facility] traMADoL (ULTRAM) tablet 100 mg 2021-09 04:05: 40 07-28 05:41 :29 No 100mg 100 mg, Oral, Q8HPRN, Starting on Sun07/26/22 at 2205, Until Nicole 07/27/22 at 2341, Routine, Pain (scale 4-6) [facility] metoprolol tartrate 25 mg tablet 2021-09 00:00: 00 Yes [id number] 25mg Take 1 tablet by mouth in the morning and 1 tablet at noon and 1 tablet in the evening. [facility] metoprolol tartrate 25 mg tablet 2021-09 00:00: 00 11-05 00:00 :00 No [id number] 25mg Take 1 tablet by mouth in the morning and 1 tablet at noon and 1 tablet in the evening. [facility] traMADoL 100 mg Tab 2021-09 00:00: 00 08-04 05:59 :00 No [id number] 100mg Take 100 mg by mouth every 8 (eight) hours as needed for Pain (scale 4-6) for up to 7 days. Indication s: acute pain [facility] metoprolol tartrate (LOPRESSOR) tablet 25 mg 2021-09 20:00: 00 Yes 25mg 25 mg, Oral, TID, First dose (after last modificati on) on Sun07/26/22 at 1400, Until Discontinu ed, Routine [facility] furosemide (LASIX) injection 40 mg 2021-09 18:00: 00 07-26 18:10 :00 No 40mg 40 mg, Slow IV Push, ONCE, 1 dose, On Sun07/26/22 at 1200, Routine [facility] metoprolol tartrate (LOPRESSOR) tablet 25 mg 2021-09 15:30: 00 07-26 17:08 :02 No 25mg 25 mg, Oral, BID, First dose on Sun07/26/22 at 0930, Until Discontinu ed, Routine [facility] enoxaparin (LOVENOX) injection 40 mg 2021-09 15:00: 00 Yes 40mg 40 mg, Subcutaneo us, DAILY, First dose on Sun07/26/22 at 0900, Until Discontinu ed, Routine [facility] amLODIPine (NORVASC) tablet 10 mg 2021-09 15:00: 00 07-26 15:21 :17 No 10mg 10 mg, Oral, DAILY, First dose on Sun07/26/22 at 0900, Until Discontinu ed, Routine [facility] methocarbam oL (ROBAXIN) tablet 500 mg 2021-09 14:00: 00 Yes 500mg 500 mg, Oral, BID, First dose on Sun07/26/22 at 0800, Until Discontinu ed, Routine [facility] ondansetron (ZOFRAN (PF)) injection 4 mg 2021-09 05:42: 35 Yes 4mg 4 mg, Slow IV Push, Q6HPRN, Starting on Sun07/25/22 at 2342, Until Discontinu ed, Routine, Nausea and Vomiting (N/V) [facility] FENTanyl PF (SUBLIMAZE (PF)) injection 50 mcg 2021-09 05:42: 32 07-27 05:41 :32 No 50ug 50 mcg, Slow IV Push, Q3HPRN, Starting on Sun07/25/22 at 2342, Until Sun07/26/22 at 2341, Routine, Pain (scale 7-10) [facility] traMADoL (ULTRAM) tablet 50 mg 2021-09 05:42: 29 07-27 04:05 :58 No 50mg 50 mg, Oral, Q8HPRN, Starting on Sun07/25/22 at 2342, Until Sun07/26/22 at 2205, Routine, Pain (scale 4-6) [facility] ondansetron (ZOFRAN (PF)) injection 4 mg 2021-09 05:00: 00 07-26 04:23 :00 No 4mg 4 mg, Slow IV Push, ONCE, 1 dose, On Sun07/25/22 at 2300, SE [facility] morpHINE (4 mg/mL) injection 4 mg 2021-09 05:00: 00 07-26 04:23 :00 No 4mg 4 mg, Slow IV Push, ONCE, 1 dose, On Sun07/25/22 at 2300, SE [facility] iopamidol (ISOVUE 370-500 mL) injection 100 mL 2021-09 04:15: 00 07-26 03:20 :00 No [id number] 100mL 100 mL, Intravenou s, ONCE, 1 dose, On Sun07/25/22 at 2215, Routine [facility] morpHINE (2 mg/mL) injection 2 mg 2021-09 02:45: 00 07-26 02:36 :00 No 2mg 2 mg, Slow IV Push, ONCE, 1 dose, On Sun07/25/22 at 2045, STAT [facility] TAKE 1 TABLET BY MOUTH IN THE MORNING AND 1 TABLET IN THE EVENING. 2021-09 00:00: 00 No TAKE 1 TABLET BY MOUTH IN THE MORNING AND 1 TABLET IN THE EVENING. 2021-09 00:00: 00 No metoprolol tartrate 25 mg tablet 2021-09 00:00: 00 07-27 00:00 :00 No [id number] 25mg Take 1 tablet by mouth in the morning and 1 tablet in the evening. [facility] TAKE 1/2 TABLET BY MOUTH TWICE DAILY NEEDED 2021-09 00:00: 00 No FLUOXETIN(P ) 40MG 2021-09 00:00: 00 No TAKE 1/2 TABLET BY MOUTH TWICE DAILY NEEDED 2021-09 00:00: 00 No FLUOXETIN(P ) 40MG 2021-09 00:00: 00 No BREO ELLIPTA 200-25 INH 2021-09 00:00: 00 No BREO ELLIPTA 200-25 INH 2021-09 00:00: 00 No ALPRAZOLAM 1MG 2021-09 00:00: 00 No ALPRAZOLAM 1MG 2021-09-15 00:00: 00 No TIZANIDINE 2MG 2021-09-09 00:00: 00 No TIZANIDINE 2MG 2021-09- 00:00: 00 No ZOLPIDEM 10MG 2021-09- 00:00: 00 No ZOLPIDEM 10MG 2021-09 00:00: 00 No NALOXONE HCL 4MG [facility] 2021-09 00:00: 00 No USE 1 SPRAY NEEDED NEEDED OVERDOSE 2021-09 00:00: 00 No APAP/CODEIN E #4 2021-09 00:00: 00 No NALOXONE HCL 4MG SPR 2021-09 00:00: 00 No USE 1 SPRAY NEEDED NEEDED OVERDOSE 2021-09 00:00: 00 No APAP/CODEIN E #4 2021-09 00:00: 00 No USE 1 AMPULE IN NEBULIZER 3 TIMES A DAY 2021-09 0- 00:00: 00 No ALBUTER 3ML .63MG/3M 2021-09 0 00:00: 00 No USE 1 AMPULE IN NEBULIZER 3 TIMES A DAY 2021-09 0 00:00: 00 No ALBUTER 3ML .63MG/3M 2021-09 0 00:00: 00 No celecoxib (CELEBREX) 100 mg capsule 2021-09 06:18: 06-26 00:00 :00 No 100mg Take 100 mg by mouth 2 (two) times daily with meals. [facility] amLODIPine 10 mg tablet 2021-09 06:18: 06-26 00:00 :00 No 10mg Take 10 mg by mouth daily. [facility] FLUoxetine 10 mg capsule 2021-09 06:18: 50 06-26 00:00 :00 No 10mg Take 10 mg by mouth daily. [facility] traMADoL 100 mg capsule 2021-0924 06:18: 06-26 00:00 :00 No 100mg Take 100 mg by mouth every 6 (six) hours as needed. [facility] famotidine (PEPCID AC) tablet 20 mg 2021-09 05:30: 00 Yes 20mg 20 mg, Oral, BID, First dose on Sun06/26/22 at 0030, Until Discontinu ed, Routine [facility] ceFEPIme (MAXIPIME) 1,000 mg in NaCl 0.9% (NS) 50 mL MINI-BAG 2021-09 21:15: 00 06-28 21:14 :00 No 1000mg 1,000 mg, IV Piggyback, Q8H ABX, 9 doses, First dose on Sun06/25/22 at 1615, Last dose on Sun06/28/22 at 0815, Administer over 4 Hours, 50 mL
Reas on for Anti-Infec tive: Empiric Therapy for Suspected Infection< br>Empiric Therapy Site: Respirator y
Durat ion of therapy: 72 hours [facility] furosemide (LASIX) injection 40 mg 2021-09 14:00: 00 Yes 40mg 40 mg, Slow IV Push, DAILY, First dose on Sun06/25/22 at 0900, Until Discontinu ed, Routine [facility] enoxaparin (LOVENOX) injection 40 mg 2021-09 14:00: 00 Yes 40mg 40 mg, Subcutaneo us, DAILY, First dose on Sun06/25/22 at 0900, Until Discontinu ed, Routine [facility] amLODIPine (NORVASC) tablet 10 mg 2021-09 14:00: 00 Yes 10mg 10 mg, Oral, DAILY, First dose on Sun06/25/22 at 0900, Until Discontinu ed, Routine [facility] azithromyci n (ZITHROMAX) tablet 500 mg 2021-09 14:00: 00 06-28 13:59 :00 No 500mg 500 mg, Oral, DAILY, 3 doses, First dose on Sun06/25/22 at 0900, Last dose on Sun06/27/22 at 0900, SE
Re ason for Anti-Infec tive: Empiric Therapy for Suspected Infection< br>Empiric Therapy Site: Respirator y
Durat ion of therapy: 72 hours [facility] ceFEPIme (MAXIPIME) 1,000 mg in NaCl 0.9% (NS) 50 mL MINI-BAG 2021-09 13:30: 00 06-25 14:00 :00 No 1000mg 1,000 mg, IV Piggyback, ONCE, 1 dose, On Sun06/25/22 at 0830, Administer over 30 Minutes, 50 mL
Reas on for Anti-Infec tive: Empiric Therapy for Suspected Infection< br>Empiric Therapy Site: Respirator y
Durat ion of therapy: 72 hours [facility] losartan (COZAAR) tablet 50 mg 2021-09 13:00: 00 Yes 50mg 50 mg, Oral, BID, First dose on Sun06/25/22 at 0800, Until Discontinu ed, Routine [facility] methylPREDN ISolone sod succ (SOLU-MEDRO L (PF)) injection 40 mg 2021-09 13:00: 00 Yes 40mg 40 mg, Slow IV Push, Q12H, First dose on Sun06/25/22 at 0800, Until Discontinu ed, Routine [facility] morpHINE (2 mg/mL) injection 2 mg 2021-09 11:02: 17 Yes 2mg 2 mg, Slow IV Push, Q6HPRN, Starting on 06/25/22 at 0602, Until Discontinu ed, Routine, Pain (scale 7-10) [facility] iopamidol (ISOVUE 370-500 mL) injection 100 mL 2021-09 07:59: 00 06-25 07:59 :00 No [id number] 100mL 100 mL, Intravenou s, ONCE, 1 dose, On Sun06/25/22 at 0315, Routine [facility] traMADoL (ULTRAM) tablet 50 mg 2021-09 07:36: 43 Yes 50mg 50 mg, Oral, Q6HPRN, Starting on Sun06/25/22 at 0236, Until Discontinu ed, Routine, Pain (scale 4-6) [facility] morpHINE (4 mg/mL) injection 4 mg 2021-09 05:15: 00 06-25 04:46 :00 No 4mg 4 mg, Slow IV Push, ONCE, 1 dose, On Sun06/25/22 at 0015, [facility] furosemide (LASIX) injection 40 mg 2021-09 04:30: 00 06-25 04:46 :00 No 40mg 40 mg, IV Push, ONCE, 1 dose, On 06/24/22 at 2330, [facility] ondansetron (ZOFRAN (PF)) injection 4 mg 2021-09 04:29: 13 Yes 4mg 4 mg, Slow IV Push, Q6HPRN, Starting on 06/24/22 at 2329, Until Discontinu ed, Routine, Nausea and Vomiting (N/V) [facility] acetaminoph en (TYLENOL) tablet 650 mg 2021-09 04:29: 07 Yes 650mg 650 mg, Oral, Q6HPRN, Starting on 06/24/22 at 2329, Until Discontinu ed, Routine, Pain (scale 1-3) [facility] ondansetron (ZOFRAN-ODT ) disintegrat ing tablet 4 mg 06-01 02:45: 00 06-01 01:44 :00 No 4mg 4 mg, Oral, ONCE, 1 dose, On Sun05/31/22 at 2145, [facility] HYDROcodone -acetaminop hen (NORCO) 10-325 mg tablet 1 tablet 06-01 02:45: 00 06-01 01:45 :00 No 1{tbl} 1 tablet, Oral, ONCE, 1 dose, On Sun05/31/22 at 2145, [facility] HYDROcodone -acetaminop hen 5-325 mg tablet 05-31 00:00: 00 06-08 04:59 :00 No [id number] 1{tbl} Take 1 tablet by mouth every 6 (six) hours as needed for Pain (scale 7-10) for up to 7 days. Indication s: acute pain [facility] &lt 2-0 8-16 00:00: 00 No TAKE 1 CAPSULE BY MOUTH EVERY DAY 2021-0 8-16 00:00: 00 No 20 &lt 2-0 8-16 00:00: 00 No 100 &lt 2021-0 8-16 00:00: 00 No 500 TAKE 1 CAPSULE BY MOUTH EVERY DAY 2021-0 8-16 00:00: 00 No 200 TAKE 1 TABLET BY MOUTH EVERY DAY FOR 30 DAYS 2021-0 8-16 00:00: 00 No 20 USE 1 PUFF EVERY DAY 2021-0 8-16 00:00: 00 No INJECT 1 ML INTRAMUSCUL JUDIE ONCE EVERY 3 MONTHS. 2021-0 8-16 00:00: 00 No 150 &lt 2021-0 8-16 00:00: 00 No Dose Unknown 2021-0 8-16 00:00: 00 No DICLOFENAC SODIUM ER 100MG ER TAB 2021-0 8-16 00:00: 00 No &lt 2021-0 8-16 00:00: 00 No 500 TAKE 1 CAPSULE BY MOUTH EVERY DAY 2021-0 8-16 00:00: 00 No TAKE 1 TABLET BY MOUTH EVERY DAY FOR 30 DAYS 2021-0 8-16 00:00: 00 No 20 USE 1 PUFF EVERY DAY 2021-0 8-16 00:00: 00 No Dose Unknown 2021-0 8-16 00:00: 00 No &lt 2-0 8-16 00:00: 00 No Dose Unknown 2021-0 8-16 00:00: 00 No DICLOFENAC SODIUM ER 100MG ER TAB 2021-0 8-16 00:00: 00 No &lt 2-0 8-16 00:00: 00 No 500 TAKE 1 CAPSULE BY MOUTH EVERY DAY 2021-0 8-16 00:00: 00 No TAKE 1 TABLET BY MOUTH EVERY DAY FOR 30 DAYS 2021-0 8-16 00:00: 00 No 20 USE 1 PUFF EVERY DAY 2021-0 8-16 00:00: 00 No Dose Unknown 2021-0 8-16 00:00: 00 No &lt 2-0 8-13 00:00: 00 No &lt 2-0 8-13 00:00: 00 No &lt 2-0 8-13 00:00: 00 No &lt 2022-0 8-13 00:00: 00 No TAKE 1 TABLET BY MOUTH EVERY DAY FOR 7 DAYS 2022-0 8-12 00:00: 00 No 500 &lt 2022-0 8-12 00:00: 00 No 20 Dose Unknown 2022-0 8-12 00:00: 00 No Dose Unknown 2022-0 8-12 00:00: 00 No FUROSEMIDE 20MG TAB 2022-0 8-12 00:00: 00 No TAKE 1 TABLET BY MOUTH TWICE A DAY 2022-0 8-12 00:00: 00 No TAKE 1 TABLET BY MOUTH EVERY DAY FOR 7 DAYS 2022-0 8-12 00:00: 00 No 500 &lt 2022-0 8-12 00:00: 00 No 20 TAKE 1 TABLET BY MOUTH TWICE A DAY 2022-0 8- 00:00: 00 No 75 Dose Unknown 2022-0 8- 00:00: 00 No FUROSEMIDE 20MG TAB 2022-0 8- 00:00: 00 No TAKE 1 TABLET BY MOUTH TWICE A DAY 2022-0 8-12 00:00: 00 No ALPRAZOLAM 1MG TAB 2022-0 8-09 00:00: 00 No &lt 2022-0 8-09 00:00: 00 No Dose Unknown 2022-0 8-09 00:00: 00 No ALPRAZOLAM 1MG TAB 2022-0 8-09 00:00: 00 No Dose Unknown 2022-0 8-09 00:00: 00 No TAKE 1 TABLET BY MOUTH EVERY 12 HOURS NEEDED 2022-0 8-09 00:00: 00 No &lt 2022-0 8-09 00:00: 00 No 1 &lt 2022-0 8-09 00:00: 00 No Dose Unknown 2022-0 8-09 00:00: 00 No ALPRAZOLAM 1MG TAB 2022-0 8-09 00:00: 00 No Dose Unknown 2022-0 8-09 00:00: 00 No TAKE 1 TABLET BY MOUTH EVERY 12 HOURS NEEDED 2022-0 8-09 00:00: 00 No &lt 2022-0 7-15 00:00: 00 No 100 &lt 2022-0 7-15 00:00: 00 No 100 &lt 2022-0 7-15 00:00: 00 No 100 &lt 2022-0 7-15 00:00: 00 No 100 Cholecalcif shanti, Vitamin D3, 1,250 mcg (50,000 unit) capsule 03-16 00:00: 00 Yes [facility] Cholecalcif shanti, Vitamin D3, 1,250 mcg (50,000 unit) capsule 03-16 00:00: 00 Yes [facility] Cholecalcif shanti, Vitamin D3, 1,250 mcg (50,000 unit) capsule 03-16 00:00: 00 Yes [facility] Cholecalcif shanti, Vitamin D3, 1,250 mcg (50,000 unit) capsule 03-16 00:00: 00 Yes [facility] Cholecalcif shanti, Vitamin D3, 1,250 mcg (50,000 unit) capsule 03-16 00:00: 00 Yes [facility] Cholecalcif shanti, Vitamin D3, 1,250 mcg (50,000 unit) capsule 03-16 00:00: 00 Yes [facility] enoxaparin (LOVENOX) injection 40 mg 02-26 14:00: 00 Yes 40mg 40 mg, Subcutaneo us, DAILY, First dose on 02/26/22 at 0900, Until Discontinu ed, Routine [facility] amLODIPine (NORVASC) tablet 10 mg 02-26 14:00: 00 Yes 10mg 10 mg, Oral, DAILY, First dose on 02/26/22 at 0900, Until Discontinu ed, Routine [facility] celecoxib (CELEBREX) 100 mg capsule 02-26 12:37: 35 Yes 100mg Take 100 mg by mouth 2 (two) times daily with meals. [facility] amLODIPine 10 mg tablet 02-26 12:37: 35 Yes 10mg Take 10 mg by mouth daily. [facility] FLUoxetine 10 mg capsule 02-26 12:37: 35 Yes 10mg Take 10 mg by mouth daily. [facility] traMADoL 100 mg capsule 02-26 12:37: 35 Yes 100mg Take 100 mg by mouth every 6 (six) hours as needed. [facility] celecoxib (CELEBREX) 100 mg capsule 02-26 12:37: 35 Yes 100mg Take 100 mg by mouth 2 (two) times daily with meals. [facility] amLODIPine 10 mg tablet 02-26 12:37: 35 Yes 10mg Take 10 mg by mouth daily. [facility] FLUoxetine 10 mg capsule 02-26 12:37: 35 Yes 10mg Take 10 mg by mouth daily. [facility] traMADoL 100 mg capsule 02-26 12:37: 35 Yes 100mg Take 100 mg by mouth every 6 (six) hours as needed. [facility] celecoxib (CELEBREX) 100 mg capsule 02-26 12:37: 35 Yes 100mg Take 100 mg by mouth 2 (two) times daily with meals. [facility] amLODIPine 10 mg tablet 02-26 12:37: 35 Yes 10mg Take 10 mg by mouth daily. [facility] FLUoxetine 10 mg capsule 02-26 12:37: 35 Yes 10mg Take 10 mg by mouth daily. [facility] traMADoL 100 mg capsule 02-26 12:37: 35 Yes 100mg Take 100 mg by mouth every 6 (six) hours as needed. [facility] celecoxib (CELEBREX) 100 mg capsule 02-26 12:37: 35 Yes 100mg Take 100 mg by mouth 2 (two) times daily with meals. [facility] amLODIPine 10 mg tablet 02-26 12:37: 35 Yes 10mg Take 10 mg by mouth daily. [facility] FLUoxetine 10 mg capsule 02-26 12:37: 35 Yes 10mg Take 10 mg by mouth daily. [facility] traMADoL 100 mg capsule 02-26 12:37: 35 Yes 100mg Take 100 mg by mouth every 6 (six) hours as needed. [facility] celecoxib (CELEBREX) 100 mg capsule 02-26 12:37: 35 Yes 100mg Take 100 mg by mouth 2 (two) times daily with meals. [facility] amLODIPine 10 mg tablet 02-26 12:37: 35 Yes 10mg Take 10 mg by mouth daily. [facility] FLUoxetine 10 mg capsule 02-26 12:37: 35 Yes 10mg Take 10 mg by mouth daily. [facility] traMADoL 100 mg capsule 02-26 12:37: 35 Yes 100mg Take 100 mg by mouth every 6 (six) hours as needed. [facility] celecoxib (CELEBREX) 100 mg capsule 02-26 12:37: 35 Yes 100mg Take 100 mg by mouth 2 (two) times daily with meals. [facility] amLODIPine 10 mg tablet 02-26 12:37: 35 Yes 10mg Take 10 mg by mouth daily. [facility] FLUoxetine 10 mg capsule 02-26 12:37: 35 Yes 10mg Take 10 mg by mouth daily. [facility] traMADoL 100 mg capsule 02-26 12:37: 35 Yes 100mg Take 100 mg by mouth every 6 (six) hours as needed. [facility] ondansetron (ZOFRAN (PF)) injection 4 mg 02-26 04:30: 54 Yes 4mg 4 mg, Slow IV Push, Q6HPRN, Starting on 02/25/22 at 2330, Until Discontinu ed, Routine, Nausea and Vomiting (N/V) [facility] acetaminoph en (TYLENOL) tablet 650 mg 02-26 04:30: 45 Yes 650mg 650 mg, Oral, Q6HPRN, Starting on 02/25/22 at 2330, Until Discontinu ed, Routine, Pain (scale 1-3) [facility] ondansetron (ZOFRAN (PF)) injection 4 mg 02-23 05:45: 00 02-23 04:58 :00 No 4mg 4 mg, Slow IV Push, ONCE, 1 dose, On Nicole 02/23/22 at 0045, [facility] morpHINE (4 mg/mL) injection 4 mg 02-23 05:45: 00 02-23 04:58 :00 No 4mg 4 mg, Slow IV Push, ONCE, 1 dose, On Nicole 02/23/22 at 0045, [facility] acetaminoph en (TYLENOL) tablet 1,000 mg 02-23 04:00: 00 02-23 03:13 :00 No 1000mg 1,000 mg, Oral, ONCE, 1 dose, On Sun02/22/22 at 2300, [facility] methocarbam oL (ROBAXIN) tablet 1,000 mg 02-23 04:00: 00 02-23 03:14 :00 No 1000mg 1,000 mg, Oral, ONCE, 1 dose, On Sun02/22/22 at 2300, [facility] TAKE 1 CAPSULE BY MOUTH EVERY DAY 2021-0 02-20 00:00: 00 No TAKE 1 CAPSULE BY MOUTH EVERY DAY 2021-0 02-20 00:00: 00 No TAKE 1 CAPSULE BY MOUTH EVERY DAY 2021-0 02-20 00:00: 00 No TAKE 1 CAPSULE BY MOUTH EVERY DAY 2021-0 02-20 00:00: 00 No &lt 2022-0 6 00:00: 00 No &lt 2022-0 6 00:00: 00 No &lt 2-0 02-16 00:00: 00 No &lt 2022-0 02-16 00:00: 00 No Dose Unknown 2021-0 02-09 00:00: 00 No &lt 2022-0 02-09 00:00: 00 No TAKE 1 TABLET BY MOUTH TWICE A DAY FOR 30 DAYS 2021-0 02-09 00:00: 00 No &lt 2022-0 02-09 00:00: 00 No TAKE 1 TABLET BY MOUTH TWICE A DAY FOR 30 DAYS 2021-0 02-09 00:00: 00 No TAKE 1 TABLET BY MOUTH TWICE A DAY FOR 30 DAYS 2021-0 02-09 00:00: 00 No &lt 2022-0 02-09 00:00: 00 No TAKE 1 TABLET BY MOUTH EVERY 12 HOURS NEEDED 2022-0 6- 00:00: 00 No Dose Unknown 2022-0 6 00:00: 00 No &lt 2022-0 6 00:00: 00 No Dose Unknown 2022-0 6 00:00: 00 No Dose Unknown 2022-0 6 00:00: 00 No &lt 2022-0 6 00:00: 00 No TAKE 1 TABLET BY MOUTH TWICE A DAY FOR 30 DAYS 2022-0 6 00:00: 00 No &lt 2022-0 6 00:00: 00 No TAKE 1 TABLET BY MOUTH TWICE A DAY FOR 30 DAYS 2022-0 02-09 00:00: 00 No TAKE 1 TABLET BY MOUTH TWICE A DAY FOR 30 DAYS 2022-0 02-09 00:00: 00 No &lt 2022-0 02-09 00:00: 00 No TAKE 1 TABLET BY MOUTH EVERY 12 HOURS NEEDED 2-0 02-09 00:00: 00 No Dose Unknown 2-0 6 00:00: 00 No &lt 2022-0 6 00:00: 00 No Dose Unknown 2-0 6 00:00: 00 No Dose Unknown 2-0 6 00:00: 00 No &lt 2022-0 02-09 00:00: 00 No TAKE 1 TABLET BY MOUTH TWICE A DAY FOR 30 DAYS 2022-0 02-09 00:00: 00 No &lt 2022-0 6 00:00: 00 No TAKE 1 TABLET BY MOUTH TWICE A DAY FOR 30 DAYS 2022-0 02-09 00:00: 00 No TAKE 1 TABLET BY MOUTH TWICE A DAY FOR 30 DAYS 2022-0 02-09 00:00: 00 No &lt 2022-0 6 00:00: 00 No TAKE 1 TABLET BY MOUTH EVERY 12 HOURS NEEDED 2-0 02-09 00:00: 00 No Dose Unknown 2-0 6 00:00: 00 No &lt 2022-0 6 00:00: 00 No Dose Unknown 2-0 6 00:00: 00 No Dose Unknown 2-0 6 00:00: 00 No &lt 2022-0 02-09 00:00: 00 No TAKE 1 TABLET BY MOUTH TWICE A DAY FOR 30 DAYS 2022-0 6- 00:00: 00 No &lt 2022-0 6- 00:00: 00 No TAKE 1 TABLET BY MOUTH TWICE A DAY FOR 30 DAYS 2022-0 6- 00:00: 00 No TAKE 1 TABLET BY MOUTH TWICE A DAY FOR 30 DAYS 2022-0 6- 00:00: 00 No &lt 2022-0 6- 00:00: 00 No TAKE 1 TABLET BY MOUTH EVERY 12 HOURS NEEDED 2022-0 6- 00:00: 00 No Dose Unknown 2022-0 6- 00:00: 00 No &lt 2022-0 6- 00:00: 00 No Dose Unknown 2022-0 6- 00:00: 00 No &lt 2022-0 6- 00:00: 00 No &lt 2022-0 6- 00:00: 00 No &lt 2022-0 6- 00:00: 00 No &lt 2022-0 6- 00:00: 00 No Dose Unknown 2022-0 6- 00:00: 00 No TAKE 1 TABLET BY MOUTH EVERY 12 HOURS NEEDED 2022-0 6- 00:00: 00 No Dose Unknown 2022-0 6- 00:00: 00 No Dose Unknown 2022-0 6- 00:00: 00 No TAKE 1 TABLET BY MOUTH EVERY 12 HOURS NEEDED 2022-0 6- 00:00: 00 No Dose Unknown 2022-0 6- 00:00: 00 No TAKE 1 TABLET BY MOUTH EVERY 12 HOURS NEEDED 2022-0 6- 00:00: 00 No Dose Unknown 2022-0 6- 00:00: 00 No Dose Unknown 2022-0 6- 00:00: 00 No Dose Unknown 2022-0 6- 00:00: 00 No TAKE 1 TABLET BY MOUTH EVERY 12 HOURS NEEDED 2022-0 6- 00:00: 00 No Dose Unknown 2022-0 6- 00:00: 00 No metformin 500 mg tablet 2022-0 5- 00:00: 00 No 1mg Dose Unknown 2022-0 5- 00:00: 00 No metformin 500 mg tablet 2022-0 5- 00:00: 00 No 1mg &lt 2022-0 5- 00:00: 00 No Dose Unknown 0 01-31 00:00: 00 No &lt 0 01-31 00:00: 00 No TAKE 1 TABLET BY MOUTH TWICE A DAY 0 01-31 00:00: 00 No TAKE 2 PUFFS BY MOUTH EVERY 4 TO 6 HOURS 0 01-31 00:00: 00 No &lt 0 01-31 00:00: 00 No TAKE 1 CAPSULE BY MOUTH EVERY DAY 0 01-31 00:00: 00 No TAKE 6 TABLETS ON DAY 1 DIRECTED ON PACKAGE AND DECREASE BY 1 TAB EACH DAY FOR A TOTAL OF 6 DAYS 0 01-31 00:00: 00 No TAKE 1 TABLET BY MOUTH TWICE A DAY 0 01-31 00:00: 00 No TAKE 2 PUFFS BY MOUTH EVERY 4 TO 6 HOURS 0 01-31 00:00: 00 No TAKE 2 PUFFS BY MOUTH EVERY 4 TO 6 HOURS 0 01-31 00:00: 00 No TAKE 1 TABLET BY MOUTH TWICE A DAY 0 01-31 00:00: 00 No Dose Unknown 0 01-31 00:00: 00 No &lt 0 01-31 00:00: 00 No TAKE 6 TABLETS ON DAY 1 DIRECTED ON PACKAGE AND DECREASE BY 1 TAB EACH DAY FOR A TOTAL OF 6 DAYS 0 01-31 00:00: 00 No TAKE 2 PUFFS BY MOUTH EVERY 4 TO 6 HOURS 0 01-31 00:00: 00 No &lt 0 01-31 00:00: 00 No TAKE 1 CAPSULE BY MOUTH EVERY DAY 0 01-31 00:00: 00 No TAKE 6 TABLETS ON DAY 1 DIRECTED ON PACKAGE AND DECREASE BY 1 TAB EACH DAY FOR A TOTAL OF 6 DAYS 0 01-31 00:00: 00 No TAKE 1 TABLET BY MOUTH TWICE A DAY 0 01-31 00:00: 00 No TAKE 2 PUFFS BY MOUTH EVERY 4 TO 6 HOURS 0 01-31 00:00: 00 No TAKE 2 PUFFS BY MOUTH EVERY 4 TO 6 HOURS 0 01-31 00:00: 00 No Dose Unknown 0 01-31 00:00: 00 No &lt 0 01-31 00:00: 00 No TAKE 6 TABLETS ON DAY 1 DIRECTED ON PACKAGE AND DECREASE BY 1 TAB EACH DAY FOR A TOTAL OF 6 DAYS 0 01-31 00:00: 00 No metformin 500 mg tablet 01-31 00:00: 00 No 1mg Dose Unknown 0 01-31 00:00: 00 No &lt 0 01-31 00:00: 00 No TAKE 1 TABLET BY MOUTH TWICE A DAY 0 01-31 00:00: 00 No TAKE 2 PUFFS BY MOUTH EVERY 4 TO 6 HOURS 0 01-31 00:00: 00 No &lt 0 01-31 00:00: 00 No TAKE 1 CAPSULE BY MOUTH EVERY DAY 0 01-31 00:00: 00 No TAKE 6 TABLETS ON DAY 1 DIRECTED ON PACKAGE AND DECREASE BY 1 TAB EACH DAY FOR A TOTAL OF 6 DAYS 01-31 00:00: 00 No TAKE 1 TABLET BY MOUTH TWICE A DAY 0 01-31 00:00: 00 No TAKE 2 PUFFS BY MOUTH EVERY 4 TO 6 HOURS 0 01-31 00:00: 00 No TAKE 2 PUFFS BY MOUTH EVERY 4 TO 6 HOURS 0 01-31 00:00: 00 No Dose Unknown 01-31 00:00: 00 No &lt 0 01-31 00:00: 00 No TAKE 6 TABLETS ON DAY 1 DIRECTED ON PACKAGE AND DECREASE BY 1 TAB EACH DAY FOR A TOTAL OF 6 DAYS 01-31 00:00: 00 No metformin 500 mg tablet 01-31 00:00: 00 No 1mg Dose Unknown 01-31 00:00: 00 No &lt 0 01-31 00:00: 00 No TAKE 1 TABLET BY MOUTH TWICE A DAY 0 01-31 00:00: 00 No TAKE 2 PUFFS BY MOUTH EVERY 4 TO 6 HOURS 0 01-31 00:00: 00 No &lt 0 01-31 00:00: 00 No TAKE 1 CAPSULE BY MOUTH EVERY DAY 0 01-31 00:00: 00 No TAKE 6 TABLETS ON DAY 1 DIRECTED ON PACKAGE AND DECREASE BY 1 TAB EACH DAY FOR A TOTAL OF 6 DAYS 01-31 00:00: 00 No TAKE 1 TABLET BY MOUTH TWICE A DAY 01-31 00:00: 00 No TAKE 2 PUFFS BY MOUTH EVERY 4 TO 6 HOURS 01-31 00:00: 00 No TAKE 2 PUFFS BY MOUTH EVERY 4 TO 6 HOURS 01-31 00:00: 00 No Dose Unknown 01-31 00:00: 00 No &lt 01-31 00:00: 00 No TAKE 6 TABLETS ON DAY 1 DIRECTED ON PACKAGE AND DECREASE BY 1 TAB EACH DAY FOR A TOTAL OF 6 DAYS 01-31 00:00: 00 No ipratropium -albuteroL (DUONEB) 0.5 mg-3 mg(2.5 mg base)/3 mL nebulizer solution 3 mL 01-29 14:15: 00 01-29 14:06 :00 No 3mL 3 mL, Inhalation , ONCE NOW, 1 dose, On Sun01/29/22 at 0915, Routine [facility] albuterol (PROVENTIL) 2.5 mg /3 mL (0.083 %) nebulizer solution 5 mg 01-29 14:15: 00 01-29 13:42 :00 No 5mg 5 mg, Inhalation , ONCE, 1 dose, On Sun01/29/22 at 0915, [facility] Dose Unknown 01-28 00:00: 00 No Dose Unknown 01-28 00:00: 00 No Dose Unknown 0 01-28 00:00: 00 No Dose Unknown 0 01-28 00:00: 00 No Dose Unknown 0 01-28 00:00: 00 No Dose Unknown 0 01-28 00:00: 00 No Dose Unknown 0 01-28 00:00: 00 No Dose Unknown 0 01-28 00:00: 00 No Dose Unknown 0 01-28 00:00: 00 No Dose Unknown 0 01-28 00:00: 00 No Dose Unknown 0 01-28 00:00: 00 No Dose Unknown 0 01-28 00:00: 00 No Dose Unknown 01-28 00:00: 00 No Dose Unknown 01-28 00:00: 00 No Dose Unknown 01-28 00:00: 00 No Dose Unknown 01-28 00:00: 00 No Dose Unknown 01-28 00:00: 00 No Dose Unknown 01-28 00:00: 00 No Dose Unknown 01-28 00:00: 00 No Dose Unknown 01-28 00:00: 00 No FENTanyl PF (SUBLIMAZE (PF)) injection 50 mcg 01-03 04:45: 00 01-03 04:36 :00 No 50ug 50 mcg, Intramuscu lar, ONCE, 1 dose, On Sun01/02/22 at 2345, Routine [facility] celecoxib (CELEBREX) 100 mg capsule 12-07 12:53: 05 Yes 100mg Take 100 mg by mouth 2 (two) times daily with meals. [facility] amLODIPine 10 mg tablet 12-07 12:53: 05 Yes 10mg Take 10 mg by mouth daily. [facility] FLUoxetine 10 mg capsule 12-07 12:53: 05 Yes 10mg Take 10 mg by mouth daily. [facility] traMADoL 100 mg capsule 12-07 12:53: 05 Yes 100mg Take 100 mg by mouth every 6 (six) hours as needed. [facility] celecoxib (CELEBREX) 100 mg capsule 12-07 12:53: 05 Yes 100mg Take 100 mg by mouth 2 (two) times daily with meals. [facility] amLODIPine 10 mg tablet 12-07 12:53: 05 Yes 10mg Take 10 mg by mouth daily. [facility] FLUoxetine 10 mg capsule 12-07 12:53: 05 Yes 10mg Take 10 mg by mouth daily. [facility] traMADoL 100 mg capsule 12-07 12:53: 05 Yes 100mg Take 100 mg by mouth every 6 (six) hours as needed. [facility] celecoxib (CELEBREX) 100 mg capsule 06 12:53: 05 Yes 100mg Take 100 mg by mouth 2 (two) times daily with meals. [facility] amLODIPine 10 mg tablet 2021-0 12-07 12:53: 05 Yes 10mg Take 10 mg by mouth daily. [facility] FLUoxetine 10 mg capsule 2021-0 12-07 12:53: 05 Yes 10mg Take 10 mg by mouth daily. [facility] traMADoL 100 mg capsule 2021-0 12-07 12:53: 05 Yes 100mg Take 100 mg by mouth every 6 (six) hours as needed. [facility] celecoxib (CELEBREX) 100 mg capsule 0 12-07 12:53: 05 Yes 100mg Take 100 mg by mouth 2 (two) times daily with meals. [facility] amLODIPine 10 mg tablet 12-07 12:53: 05 Yes 10mg Take 10 mg by mouth daily. [facility] FLUoxetine 10 mg capsule 0 12-07 12:53: 05 Yes 10mg Take 10 mg by mouth daily. [facility] traMADoL 100 mg capsule 0 12-07 12:53: 05 Yes 100mg Take 100 mg by mouth every 6 (six) hours as needed. [facility] celecoxib (CELEBREX) 100 mg capsule 0 12-07 12:53: 05 Yes 100mg Take 100 mg by mouth 2 (two) times daily with meals. [facility] amLODIPine 10 mg tablet 2021-0 12-07 12:53: 05 Yes 10mg Take 10 mg by mouth daily. [facility] FLUoxetine 10 mg capsule 2021-0 12-07 12:53: 05 Yes 10mg Take 10 mg by mouth daily. [facility] traMADoL 100 mg capsule 2021-0 12-07 12:53: 05 Yes 100mg Take 100 mg by mouth every 6 (six) hours as needed. [facility] celecoxib (CELEBREX) 100 mg capsule 2021-0 12-07 12:53: 05 Yes 100mg Take 100 mg by mouth 2 (two) times daily with meals. [facility] amLODIPine 10 mg tablet 12-07 12:53: 05 Yes 10mg Take 10 mg by mouth daily. [facility] FLUoxetine 10 mg capsule 12-07 12:53: 05 Yes 10mg Take 10 mg by mouth daily. [facility] traMADoL 100 mg capsule 12-07 12:53: 05 Yes 100mg Take 100 mg by mouth every 6 (six) hours as needed. [facility] predniSONE 10 mg tablet 12-07 10:: 12-07 00:00 :00 No 10mg Take 10 mg by mouth daily. [facility] hydrALAZINE 100 mg tablet 12-07 10:12-07 00:00 :00 No 100mg Take 100 mg by mouth 2 (two) times daily. [facility] cefTRIAXone (ROCEPHIN) injection 2,000 mg 12-07 05:00: 12-12 04:59 :00 No 2000mg 2,000 mg, Intravenou s, Q24H ABX, 5 doses, First dose on Sun12/07/21 at 0000, Last dose on Sun12/11/21 at 0000
Re ason for Anti-Infec tive: Documented Infection< br>Documen britney Infection Site: Respirator y
Durat ion of Therapy: 7 days [facility] predniSONE 10 mg tablet 12-07 00:00: 12-23 04:59 :00 No [id number] Take 2 tablets by mouth daily for 5 days, THEN 1 tablet daily for 5 days, THEN 0.5 tablets daily for 5 days. [facility] predniSONE 10 mg tablet 12-07 00:00: 00 12-23 04:59 :00 No [id number] Take 2 tablets by mouth daily for 5 days, THEN 1 tablet daily for 5 days, THEN 0.5 tablets daily for 5 days. [facility] azithromyci n 500 mg tablet 12-07 00:00: 00 12-10 04:59 :00 No [id number] 500mg Take 1 tablet by mouth daily for 2 days. [facility] azithromyci n 500 mg tablet 12-07 00:00: 00 12-10 04:59 :00 No [id number] 500mg Take 1 tablet by mouth daily for 2 days. [facility] traMADoL (ULTRAM) tablet 50 mg 12-06 16:44: 28 Yes 50mg 50 mg, Oral, Q6HPRN, Starting on Sun12/06/21 at 1144, Until Discontinu ed, Routine, Pain (scale 4-6) [facility] ALPRAZolam (XANAX) tablet 0.5 mg 12-06 16:43: 05 Yes .5mg 0.5 mg, Oral, BIDPRN, Starting on Sun12/06/21 at 1143, Until Discontinu ed, Routine, anxiety [facility] HYDROcodone -acetaminop hen (NORCO 5) 5-325 mg tablet 1 tablet 12-06 16:42: 38 Yes 1{tbl} 1 tablet, Oral, Q6HPRN, Starting on Sun12/06/21 at 1142, Until Discontinu ed, Routine, Pain (scale 7-10) [facility] azithromyci n (ZITHROMAX) 500 mg in NaCl 0.9% (NS) 250 mL VIAL-MATE IV piggyback 12-06 14:45: 00 12-09 14:44 :00 No 500mg 500 mg, IV Piggyback, Q24H ABX, 3 doses, First dose on Sun12/06/21 at 0945, Last dose on Sun12/08/21 at 0945, Administer over 60 Minutes, 250 mL
Reas on for Anti-Infec tive: Empiric Therapy for Suspected Infection< br>Empiric Therapy Site: Respirator y
Durat ion of therapy: 72 hours [facility] KCL (KLOR-CON M20) tablet 40 mEq 12-06 14:00: 00 Yes 40meq 40 mEq, Oral, DAILY, First dose on Sun12/06/21 at 0900, Until Discontinu ed, Routine [facility] enoxaparin (LOVENOX) injection 40 mg 12-06 14:00: 00 Yes 40mg 40 mg, Subcutaneo us, Q24H, First dose on Sun12/06/21 at 0900, Until Discontinu ed, Routine [facility] predniSONE (DELTASONE) tablet 20 mg 12-06 14:00: 00 Yes 20mg 20 mg, Oral, DAILY, First dose on Sun12/06/21 at 0900, Until Discontinu ed, Routine [facility] FLUoxetine (PROZAC) capsule 20 mg 12-06 14:00: 00 Yes 20mg 20 mg, Oral, DAILY, First dose on Sun12/06/21 at 0900, Until Discontinu ed, Routine [facility] amLODIPine (NORVASC) tablet 5 mg 12-06 14:00: 00 Yes 5mg 5 mg, Oral, DAILY, First dose on Sun12/06/21 at 0900, Until Discontinu ed, Routine [facility] magnesium oxide (MAG-OX 400) tablet 400 mg 12-06 13:00: 00 Yes 400mg 400 mg, Oral, BID, First dose on Sun12/06/21 at 0800, Until Discontinu ed, Routine [facility] ipratropium -albuteroL (DUONEB) 0.5 mg-3 mg(2.5 mg base)/3 mL nebulizer solution 3 mL 12-06 13:00: 00 Yes 3mL 3 mL, Inhalation , QID, First dose on Sun12/06/21 at 0800, Until Discontinu ed, Routine [facility] lactobacill us acidophilus tablet 0.5 mg 12-06 13:00: 00 Yes .5mg 0.5 mg, Oral, BID, First dose on Sun12/06/21 at 0800, Until Discontinu ed, Routine [facility] levoFLOXaci n in D5W (LEVAQUIN) 750 mg/150 mL Piggyback 750 mg 12-06 09:30: 00 12-06 13:39 :25 No 750mg 750 mg, IV Piggyback, Q24H ABX, First dose on Sun12/06/21 at 0430, Until Discontinu ed, Administer over 90 Minutes, 150 mL
Reas on for Anti-Infec tive: Empiric Therapy for Suspected Infection< br>Empiric Therapy Site: Respirator y
Durat ion of therapy: 7 days
Re stricted use approved by: [employer] [facility] traMADoL (ULTRAM) tablet 50 mg 12-06 08:14: 42 12-06 16:44 :40 No 50mg 50 mg, Oral, Q6HPRN, Starting on Sun12/06/21 at 0314, Until Sun12/06/21 at 1144, Routine, Pain (scale 7-10) [facility] HYDROcodone -acetaminop hen (NORCO) 10-325 mg tablet 1 tablet 12-06 06:00: 00 12-06 04:59 :00 No 1{tbl} 1 tablet, Oral, ONCE, 1 dose, On Sun12/06/21 at 0100, Routine [facility] fluticasone propion-lavon meteroL (ADVAIR) 250-50 mcg/dose inhalation disk 1 Puff 12-05 13:00: 00 Yes 1{puff} 1 Puff, Inhalation , Q12H, First dose on Sun12/05/21 at 0800, Until Discontinu ed, Routine [facility] lurasidone HCl (LATUDA ORAL) 12-05 05:43: 55 12-05 00:00 :00 No Take by mouth. [facility] acetylcyste ine (MUCOMYST) 200 mg/mL (20 %) solution 800 mg 12-05 05:00: 00 12-08 04:59 :00 No 4mL 800 mg (4 mL), Inhalation , Q6H, 12 doses, First dose on Sun12/05/21 at 0000, Last dose on Sun12/07/21 at 1800, Routine [facility] cefTRIAXone (ROCEPHIN) 1,000 mg in NaCl 0.9% (NS) 50 mL MINI-BAG 12-05 03:00: 00 Yes 1000mg 1,000 mg, IV Piggyback, Q24H ABX, First dose on Sun12/04/21 at 2200, Until Discontinu ed, Administer over 30 Minutes, 50 mL
Reas on for Anti-Infec tive: Empiric Therapy for Suspected Infection& lt;br>Empi leandro Therapy Site: Respirator y
Durat ion of therapy: 72 hours [facility] ipratropium -albuteroL (DUONEB) 0.5 mg-3 mg(2.5 mg base)/3 mL nebulizer solution 3 mL 12-05 02:00: 00 Yes 3mL 3 mL, Inhalation , Q6HPRN, Starting on Sun12/04/21 at 2100, Until Discontinu ed, Routine, Wheezing [facility] methylpredn isolone sod succ (SOLU-MEDRO L) injection 60 mg 12-05 02:00: 00 Yes 60mg 60 mg, Slow IV Push, Q12H, First dose on Sun12/04/21 at 2100, Until Discontinu ed, [facility] -[facility] (NORCO) 10-325 mg tablet 1 tablet 12-05 01:55: 51 Yes 1{tbl} 1 tablet, Oral, Q6HPRN, Starting on Sun12/04/21 at 2055, Until Discontinu ed, Routine, Pain (scale 4-6) [facility] iopamidol (ISOVUE 370-500 mL) injection 100 mL 12-04 20:43: 00 12-04 20:43 :00 No [id number] 100mL 100 mL, Intravenou s, ONCE, 1 dose, On Sun12/04/21 at 1600, Routine [facility] enoxaparin (LOVENOX) injection 40 mg 12-04 14:00: 00 Yes 40mg 40 mg, Subcutaneo us, DAILY, First dose on Sun12/04/21 at 0900, Until Discontinu ed, [facility] amLOD[facility] (NORVASC) tablet 5 mg 12-04 14:00: 00 Yes 5mg 5 mg, Oral, DAILY, First dose on 12/04/21 at 0900, Until Discontinu ed, [facility] predniSONE (DELTASONE) tablet 20 mg 12-04 14:00: 00 12-05 01:54 :23 No 20mg 20 mg, Oral, DAILY, First dose on 12/04/21 at 0900, Until Discontinu ed, Routine [facility] lurasidone (LATUDA) tablet 20 mg 12-04 12:30: 00 Yes 20mg 20 mg, Oral, QAM-0730, First dose on 12/04/21 at 0730, Until Discontinu ed [facility] do[facility]cl[facility] (Vibramycin ) capsule 100 mg 12-04 11:00: 00 Yes 100mg 100 mg, Oral, Q12HA2, First dose on 12/04/21 at 0600, Until Discontinu ed, SE
Re ason for Anti-Infec tive: Empiric Therapy for Suspected Infection< br>Empiric Therapy Site: Respirator y
Durat ion of therapy: 7 days [facility] NaCl 0.9% (NS) IV infusion 500 mL 12-04 11:00: 00 12-04 15:59 :00 No 500mL at 100 mL/hr, IV Infusion, CONTINUOUS , Starting on Sun12/04/21 at 0600, Until Sun12/04/21 at 1059, Routine [facility] zolpidem (AMBIEN) tablet 5 mg 12-04 06:14: 57 Yes 5mg 5 mg, Oral, QHSPRN, Starting on 12/04/21 at 0114, Until Discontinu ed, Routine, Insomnia [facility] docusate (COLACE) capsule 100 mg 12-04 01:00: 00 Yes 100mg 100 mg, Oral, BID, First dose on 12/03/21 at 2000, Until Discontinu ed, [facility] bus[facility] (BUSPAR) tablet 5 mg 12-04 01:00: 00 Yes 5mg 5 mg, Oral, BID, First dose on 12/03/21 at 1999, Until Discontinu ed, Routine [facility] ipratropium -albuteroL (DUONEB) 0.5 mg-3 mg(2.5 mg base)/3 mL nebulizer solution 3 mL 12-04 01:00: 00 12-05 01:56 :47 No 3mL 3 mL, Inhalation , QID, First dose on 12/03/21 at 2000, Until Discontinu ed, Routine [facility] ondansetron (ZOFRAN (PF)) injection 4 mg 12-03 22:05: 11 Yes 4mg 4 mg, Slow IV Push, Q6HPRN, Starting on 12/03/21 at 1705, Until Discontinu ed, Routine, Nausea and Vomiting (N/V) [facility] HYDROcodone -acetaminop hen (NORCO 5) 5-325 mg tablet 1 tablet 12-03 22:05: 07 12-05 01:56 :02 No 1{tbl} 1 tablet, Oral, Q6HPRN, Starting on 12/03/21 at 1705, Until 12/04/21 at 2055, Routine, Pain (scale 4-6) [facility] acetaminoph en (TYLENOL) tablet 650 mg 12-03 22:05: 04 Yes 650mg 650 mg, Oral, Q6HPRN, Starting on 12/03/21 at 1705, Until Discontinu ed, Routine, Pain (scale 1-3) [facility] methylpredn isolone sod succ (SOLU-MEDRO L) injection 125 mg 12-03 21:00: 00 12-03 22:03 :00 No 125mg 125 mg, Slow IV Push, ONCE NOW, 1 dose, On 12/03/21 at 1600, SE [facility] albuterol (PROVENTIL) 2.5 mg /3 mL (0.083 %) nebulizer solution 2.5 mg 12-03 21:00: 00 12-03 22:06 :33 No 2.5mg 2.5 mg, Inhalation , QID, First dose on 12/03/21 at 1600, Until Discontinu ed, Routine [facility] ipratropium (ATROVENT) 0.02 % nebulizer solution 0.5 mg 12-03 21:00: 00 12-03 22:06 :24 No .5mg 0.5 mg, Inhalation , QID, First dose on 12/03/21 at 1600, Until Discontinu ed, Routine [facility] predniSONE (DELTASONE) tablet 30 mg 11-12 15:00: 00 Yes 30mg 30 mg, Oral, DAILY, First dose (after last modificati on) on 11/12/21 at 0900, Until Discontinu ed, Routine [facility] piperacilli n-tazobacta m (ZOSYN) 3.375 g in NaCl 0.9% (NS) 50 mL MINI-BAG 11-11 23:30: 00 Yes 3.375g 3.375 g, IV Piggyback, Q8H ABX, First dose on Sun11/11/21 at 1730, Until Discontinu ed, Administer over 4 Hours, 50 mL
Reas on for Anti-Infec tive: Empiric Therapy for Suspected Infection< br>Empi leandro Therapy Site: Respirator y
Durat ion of therapy: 72 hours [facility] lurasidone HCl (LATUDA ORAL) 11-11 17:32: 07 Yes Take by mouth. [facility] lurasidone HCl (LATUDA ORAL) 11-11 17:32: 07 Yes Take by mouth. [facility] lurasidone HCl (LATUDA ORAL) 11-11 17:32: 07 Yes Take by mouth. [facility] KCL (KLOR-CON M20) tablet 20 mEq 11-11 02:00: 00 11-11 02:20 :00 No 20meq 20 mEq, Oral, ONCE, 1 dose, On Nicole 11/10/21 at 2000, Routine [facility] predniSONE 20 mg tablet 11-11 00:00: 00 Yes [id number] 20mg Take 1 tablet by mouth daily. [facility] predniSONE 20 mg tablet 11-11 00:00: 00 Yes [id number] 20mg Take 1 tablet by mouth daily. [facility] predniSONE 20 mg tablet 11-11 00:00: 00 12-05 00:00 :00 No [id number] 20mg Take 1 tablet by mouth daily. [facility] piperacilli n-tazobacta m (ZOSYN) 3.375 g in NaCl 0.9% (NS) 100 mL VIAL-MATE 11-10 22:00: 00 11-11 21:01 :00 No 3.375g 3.375 g, IV Piggyback, Q8H ABX, First dose on Nicole 11/10/21 at 1600, Until Discontinu ed, Administer over 4 Hours, 100 mL
Reas on for Anti-Infec tive: Empiric Therapy for Suspected Infection< br>Empiric Therapy Site: Respirator y
Durat ion of therapy: 72 hours [facility] enoxaparin (LOVENOX) injection 40 mg 11-10 15:00: 00 Yes 40mg 40 mg, Subcutaneo us, DAILY, First dose on Nicole 11/10/21 at 0900, Until Discontinu ed, Routine [facility] hydroCHLORO thiazide (ESIDRIX) capsule 12.5 mg 11-10 15:00: 00 Yes 12.5mg 12.5 mg, Oral, DAILY, First dose on Nicole 11/10/21 at 0900, Until Discontinu ed, Routine [facility] amLODIPine (NORVASC) tablet 10 mg 11-10 15:00: 00 Yes 10mg 10 mg, Oral, DAILY, First dose on Nicole 11/10/21 at 0900, Until Discontinu ed, Routine [facility] predniSONE (DELTASONE) tablet 40 mg 11-10 15:00: 00 2022- 03-11 17:05 :49 No 40mg 40 mg, Oral, DAILY, First dose on Sun11/10/21 at 0900, Until Discontinu ed, Routine [facility] docusate (COLACE) capsule 100 mg 11-10 14:00: 00 Yes 100mg 100 mg, Oral, BID, First dose on Sun11/10/21 at 0800, Until Discontinu ed, Routine [facility] busPIRone (BUSPAR) tablet 5 mg 11-10 14:00: 00 Yes 5mg 5 mg, Oral, BID, First dose on Sun11/10/21 at 0800, Until Discontinu ed, Routine [facility] lurasidone (LATUDA) tablet 20 mg 11-10 13:30: 00 Yes 20mg 20 mg, Oral, QAM-0730, First dose on Sun11/10/21 at 0730, Until Discontinu ed [facility] morpHINE injection 2 mg 11-10 07:05: 58 Yes 2mg 2 mg, Slow IV Push, Q4HPRN, Starting on Sun11/10/21 at 0105, Until Discontinu ed, Routine, Pain (scale 7-10) [facility] ondansetron (ZOFRAN (PF)) injection 4 mg 11-10 05:19: 35 Yes 4mg 4 mg, Slow IV Push, Q6HPRN, Starting on Sun11/09/21 at 2319, Until Discontinu ed, Routine, Nausea and Vomiting (N/V) [facility] HYDROcodone -acetaminop hen (NORCO 5) 5-325 mg tablet 1 tablet 11-10 05:19: 30 11-12 05:18 :30 No 1{tbl} 1 tablet, Oral, Q6HPRN, Starting on Sun11/09/21 at 2319, Until Sun11/11/21 at 2318, Routine, Pain (scale 4-6) [facility] acetaminoph en (TYLENOL) tablet 650 mg 11-10 05:19: 28 Yes 650mg 650 mg, Oral, Q6HPRN, Starting on Sun11/09/21 at 2319, Until Discontinu ed, Routine, Pain (scale 1-3) [facility] albuterol (VENTOLIN) inhaler 2 Puff 11-10 05:17: 52 Yes 2{puff} 2 Puff, Inhalation , Q6HPRN, Starting on Sun11/09/21 at 2317, Until Discontinu ed, Routine, Wheezing, Shortness of Breath [facility] iopamidol (ISOVUE 370-500 mL) injection 100 mL 11-10 04:43: 00 11-10 04:44 :00 No [id number] 100mL 100 mL, Intravenou s, ONCE, 1 dose, On Sun11/09/21 at 2300, Routine [facility] morpHINE injection 4 mg 11-10 03:45: 00 11-10 02:57 :00 No 4mg 4 mg, Slow IV Push, ONCE, 1 dose, On Sun11/09/21 at 2145, [facility] piperacilli n-tazobacta m (ZOSYN) 3.375 g in NaCl 0.9% (NS) 50 mL MINI-BAG 11-10 03:45: 00 11-10 05:33 :00 No 3.375g 3.375 g, IV Piggyback, ONCE, 1 dose, On Sun11/09/21 at 2145, Administer over 30 Minutes, 50 mL
Reas on for Anti-Infec tive: Documented Infection< br>Documen britney Infection Site: HEENT
D uration of Therapy: Other (see Comments) [facility] NaCl 0.9% (NS) bolus infusion 1,000 mL 11-10 03:45: 00 11-10 05:33 :00 No 1000mL at 999 mL/hr, 1,000 mL, IV Infusion, ONCE, 1 dose, On Sun11/09/21 at 2145, [facility] ondansetron (ZOFRAN (PF)) injection 4 mg 11-10 03:00: 00 11-10 01:59 :00 No 4mg 4 mg, Slow IV Push, ONCE, 1 dose, On Sun11/09/21 at 2100, SE [facility] morpHINE injection 4 mg 11-10 03:00: 00 11-10 01:58 :00 No 4mg 4 mg, Slow IV Push, ONCE, 1 dose, On Sun11/09/21 at 2100, STAT [facility] albuterol (PROVENTIL) 2.5 mg /3 mL (0.083 %) nebulizer solution 2.5 mg 11-10 02:00: 00 Yes 2.5mg 2.5 mg, Inhalation , QID, First dose on Sun11/09/21 at 2000, Until Discontinu ed, Routine [facility] ipratropium (ATROVENT) 0.02 % nebulizer solution 0.5 mg 11-10 02:00: 00 Yes .5mg 0.5 mg, Inhalation , QID, First dose on Sun11/09/21 at 2000, Until Discontinu ed, Routine [facility] hydroCHLORO thiazide 12.5 mg capsule 10-25 00:00: 00 Yes [id number] 12.5mg Take 1 capsule by mouth daily. [facility] hydroCHLORO thiazide 12.5 mg capsule 2021-0 10-25 00:00: 00 Yes [id number] 12.5mg Take 1 capsule by mouth daily. [facility] hydroCHLORO thiazide 12.5 mg capsule 2021-0 10-25 00:00: 00 Yes [id number] 12.5mg Take 1 capsule by mouth daily. [facility] thiazide 12.5 mg capsule 2021-0 10-25 00:00: 00 Yes [id number] 12.5mg Take 1 capsule by mouth daily. [facility] thiazide 12.5 mg capsule 2021-0 10-25 00:00: 00 Yes [id number] 12.5mg Take 1 capsule by mouth daily. [facility] thiazide 12.5 mg capsule 2021-0 2- 00:00: 00 Yes [id number] 12.5mg Take 1 capsule by mouth daily. [facility] thiazide 12.5 mg capsule 10-25 00:00: 00 Yes [id number] 12.5mg Take 1 capsule by mouth daily. [facility] thiazide 12.5 mg capsule 10-25 00:00: 00 12-05 00:00 :00 No [id number] 12.5mg Take 1 capsule by mouth daily. [facility] thiazide 12.5 mg capsule 10-25 00:00: 00 10-24 00:00 :00 No [id number] 12.5mg Take 1 capsule by mouth daily for 30 days. [facility] hydroCHLORO thiazide 12.5 mg capsule 10-25 00:00: 00 10-24 00:00 :00 No [id number] 12.5mg Take 1 capsule by mouth daily for 30 days. [facility] lurasidone HCl (LATUDA ORAL) 10-24 17:53: 11 Yes Take by mouth. [facility] lurasidone HCl (LATUDA ORAL) 10-24 17:53: 11 Yes Take by mouth. [facility] lurasidone HCl (LATUDA ORAL) 10-24 17:53: 11 Yes Take by mouth. [facility] lurasidone HCl (LATUDA ORAL) 10-24 10:59: 57 Yes Take by mouth. [facility] zolpidem (AMBIEN) tablet 5 mg 10-24 04:00: 00 10-24 03:07 :00 No 5mg 5 mg, Oral, ONCE, 1 dose, On 10/23/21 at 2200, Routine [facility] docusate 100 mg capsule 10-24 00:00: 00 Yes [id number] 100mg Take 1 capsule by mouth 2 (two) times daily. [facility] busPIRone 5 mg tablet 10-24 00:00: 00 Yes [id number] 5mg Take 1 tablet by mouth 2 (two) times daily. [facility] chlorhexidi ne 0.12 % mouthwash 10-24 00:00: 00 Yes [id number] 15mL Swish and spit out 15 mL 2 (two) times daily. [facility] albuterol 90 mcg/actuati on inhaler 10-24 00:00: 00 Yes [id number] 2{puff} Inhale 2 Puffs every 6 (six) hours as needed for Wheezing or Shortness of Breath. [facility] predniSONE 20 mg tablet 10-24 00:00: 00 Yes [id number] 40mg Take 2 tablets by mouth daily. [facility] docusate 100 mg capsule 10-24 00:00: 00 Yes [id number] 100mg Take 1 capsule by mouth 2 (two) times daily. [facility] busPIRone 5 mg tablet 10-24 00:00: 00 Yes [id number] 5mg Take 1 tablet by mouth 2 (two) times daily. [facility] chlorhexidi ne 0.12 % mouthwash 10-24 00:00: 00 Yes [id number] 15mL Swish and spit out 15 mL 2 (two) times daily. [facility] albuterol 90 mcg/actuati on inhaler 10-24 00:00: 00 Yes [id number] 2{puff} Inhale 2 Puffs every 6 (six) hours as needed for Wheezing or Shortness of Breath. [facility] predniSONE 20 mg tablet 10-24 00:00: 00 Yes [id number] 40mg Take 2 tablets by mouth daily. [facility] docusate 100 mg capsule 10-24 00:00: 00 Yes [id number] 100mg Take 1 capsule by mouth 2 (two) times daily. [facility] busPIRone 5 mg tablet 10-24 00:00: 00 Yes [id number] 5mg Take 1 tablet by mouth 2 (two) times daily. [facility] chlorhexidi ne 0.12 % mouthwash 10-24 00:00: 00 Yes [id number] 15mL Swish and spit out 15 mL 2 (two) times daily. [facility] albuterol 90 mcg/actuati on inhaler 10-24 00:00: 00 Yes [id number] 2{puff} Inhale 2 Puffs every 6 (six) hours as needed for Wheezing or Shortness of Breath. [facility] predniSONE 20 mg tablet 10-24 00:00: 00 Yes [id number] 40mg Take 2 tablets by mouth daily. [facility] docusate 100 mg capsule 10-24 00:00: 00 Yes [id number] 100mg Take 1 capsule by mouth 2 (two) times daily. [facility] busPIRone 5 mg tablet 10-24 00:00: 00 Yes [id number] 5mg Take 1 tablet by mouth 2 (two) times daily. [facility] chlorhexidi ne 0.12 % mouthwash 10-24 00:00: 00 Yes [id number] 15mL Swish and spit out 15 mL 2 (two) times daily. [facility] albuterol 90 mcg/actuati on inhaler 10-24 00:00: 00 Yes [id number] 2{puff} Inhale 2 Puffs every 6 (six) hours as needed for Wheezing or Shortness of Breath. [facility] docusate 100 mg capsule 10-24 00:00: 00 Yes [id number] 100mg Take 1 capsule by mouth 2 (two) times daily. [facility] albuterol 90 mcg/actuati on inhaler 10-24 00:00: 00 Yes [id number] 2{puff} Inhale 2 Puffs every 6 (six) hours as needed for Wheezing or Shortness of Breath. [facility] busPIRone 5 mg tablet 10-24 00:00: 00 Yes [id number] 5mg Take 1 tablet by mouth 2 (two) times daily. [facility] chlorhexidi ne 0.12 % mouthwash 10-24 00:00: 00 Yes [id number] 15mL Swish and spit out 15 mL 2 (two) times daily. [facility] docusate 100 mg capsule 10-24 00:00: 00 Yes [id number] 100mg Take 1 capsule by mouth 2 (two) times daily. [facility] busPIRone 5 mg tablet 10-24 00:00: 00 Yes [id number] 5mg Take 1 tablet by mouth 2 (two) times daily. [facility] chlorhexidi ne 0.12 % mouthwash 10-24 00:00: 00 Yes [id number] 15mL Swish and spit out 15 mL 2 (two) times daily. [facility] albuterol 90 mcg/actuati on inhaler 10-24 00:00: 00 Yes [id number] 2{puff} Inhale 2 Puffs every 6 (six) hours as needed for Wheezing or Shortness of Breath. [facility] docusate 100 mg capsule 10-24 00:00: 00 Yes [id number] 100mg Take 1 capsule by mouth 2 (two) times daily. [facility] busPIRone 5 mg tablet 10-24 00:00: 00 Yes [id number] 5mg Take 1 tablet by mouth 2 (two) times daily. [facility] chlorhexidi ne 0.12 % mouthwash 10-24 00:00: 00 Yes [id number] 15mL Swish and spit out 15 mL 2 (two) times daily. [facility] albuterol 90 mcg/actuati on inhaler 10-24 00:00: 00 Yes [id number] 2{puff} Inhale 2 Puffs every 6 (six) hours as needed for Wheezing or Shortness of Breath. [facility] docusate 100 mg capsule 10-24 00:00: 00 12-05 00:00 :00 No [id number] 100mg Take 1 capsule by mouth 2 (two) times daily. [facility] busPIRone 5 mg tablet 10-24 00:00: 12-05 00:00 :00 No [id number] 5mg Take 1 tablet by mouth 2 (two) times daily. [facility] chlorhexidi ne 0.12 % mouthwash 10-24 00:00: 12-05 00:00 :00 No [id number] 15mL Swish and spit out 15 mL 2 (two) times daily. [facility] albuterol 90 mcg/actuati on inhaler 10-24 00:00: 00 12-05 00:00 :00 No [id number] 2{puff} Inhale 2 Puffs every 6 (six) hours as needed for Wheezing or Shortness of Breath. [facility] predniSONE 20 mg tablet 10-24 00:00: 00 11-24 04:59 :00 No [id number] 40mg Take 2 tablets by mouth daily for 30 days. [facility] predniSONE 20 mg tablet 10-24 00:00: 00 11-11 00:00 :00 No [id number] 40mg Take 2 tablets by mouth daily. [facility] acetaminoph en-codeine 300-30 mg tablet 10-24 00:00: 00 10-30 05:59 :00 No [id number] 1{tbl} Take 1 tablet by mouth every 4 (four) hours as needed for Pain (scale 4-6) for up to 5 days. Indication s: acute pain [facility] acetaminoph en-codeine 300-30 mg tablet 10-24 00:00: 00 10-30 05:59 :00 No [id number] 1{tbl} Take 1 tablet by mouth every 4 (four) hours as needed for Pain (scale 4-6) for up to 5 days. Indication s: acute pain [facility] acetaminoph en-codeine 300-30 mg tablet 10-24 00:00: 00 10-30 05:59 :00 No [id number] 1{tbl} Take 1 tablet by mouth every 4 (four) hours as needed for Pain (scale 4-6) for up to 5 days. Indication s: acute pain [facility] busPIRone 5 mg tablet 10-24 00:00: 00 10-24 00:00 :00 No [id number] 5mg Take 1 tablet by mouth 2 (two) times daily for 30 days. [facility] chlorhexidi ne 0.12 % mouthwash 10-24 00:00: 00 10-24 00:00 :00 No [id number] 15mL Swish and spit out 15 mL 2 (two) times daily for 7 days. [facility] albuterol 90 mcg/actuati on inhaler 10-24 00:00: 00 10-24 00:00 :00 No [id number] 2{puff} Inhale 2 Puffs every 6 (six) hours as needed for Wheezing or Shortness of Breath. [facility] predniSONE 20 mg tablet 10-24 00:00: 00 10-24 00:00 :00 No [id number] 40mg Take 2 tablets by mouth daily for 30 days. [facility] busPIRone 5 mg tablet 10-24 00:00: 00 10-24 00:00 :00 No [id number] 5mg Take 1 tablet by mouth 2 (two) times daily for 30 days. [facility] chlorhexidi ne 0.12 % mouthwash 10-24 00:00: 00 10-24 00:00 :00 No [id number] 15mL Swish and spit out 15 mL 2 (two) times daily for 7 days. [facility] phenoL (SORE THROAT (PHENOL)) 1.4 % spray bottle 1 [place] 10-23 19:03: 59 Yes 1{spray } 1 [place], Oral, PRN, Starting on 10/23/21 at 1303, Until Discontinu ed, Routine, Sore throat [facility] phenoL (SORE THROAT (PHENOL)) 1.4 % spray bottle 1 [place] 10-23 19:03: 59 Yes 1{spray } 1 [place], Oral, PRN, Starting on 10/23/21 at 1303, Until Discontinu ed, Routine, Sore throat [facility] zolpidem (AMBIEN) tablet 5 mg 10-23 04:00: 00 10-23 03:54 :00 No 5mg 5 mg, Oral, ONCE, 1 dose, On 10/22/21 at 2200, Routine [facility] methylpredn isolone sod succ (SOLU-MEDRO L) injection 125 mg 10-22 20:00: 00 Yes 125mg 125 mg, Intravenou s, Q8H, First dose (after last modificati on) on 10/22/21 at 1400, Until Discontinu ed, Routine [facility] methylpredn isolone sod succ (SOLU-MEDRO L) injection 125 mg 10-22 20:00: 00 Yes 125mg 125 mg, Intravenou s, Q8H, First dose (after last modificati on) on 10/22/21 at 1400, Until Discontinu ed, Routine [facility] hydroCHLORO thiazide (ESIDRIX) capsule 12.5 mg 10-22 15:30: 00 Yes 12.5mg 12.5 mg, Oral, DAILY, First dose on 10/22/21 at 0930, Until Discontinu ed, Routine [facility] amLODIPine (NORVASC) tablet 10 mg 10-22 15:30: 00 Yes 10mg 10 mg, Oral, DAILY, First dose on 10/22/21 at 0930, Until Discontinu ed, [facility]ES[facility] capsule 12.5 mg 10-22 15:30: 00 Yes 12.5mg 12.5 mg, Oral, DAILY, First dose on 10/22/21 at 0930, Until Discontinu ed, Routine [facility] amLODIPine (NORVASC) tablet 10 mg 10-22 15:30: 00 Yes 10mg 10 mg, Oral, DAILY, First dose on Sat 19/22 at 0930, Until Discontinu ed, Routine [facility] acetaminoph en (TYLENOL) tablet 650 mg 10-22 09:54: 49 Yes 650mg 650 mg, Oral, Q6HPRN, Starting on 10/22/21 at 0354, Until Discontinu ed, Routine, Pain (scale 1-3) [facility] acetaminoph en (TYLENOL) tablet 650 mg 10-22 09:54: 49 Yes 650mg 650 mg, Oral, Q6HPRN, Starting on 10/22/21 at 0354, Until Discontinu ed, Routine, Pain (scale 1-3) [facility] chlorhexidi ne (PERIDEX) 0.12 % mouthwash 15 mL 10-22 02:00: 00 Yes 15mL 15 mL, Oral (Swish And Spit Out), BID, First dose on Sun10/21/21 at 1999, Until Discontinu ed, Routine [facility] chlorhexidi ne (PERIDEX) 0.12 % mouthwash 15 mL 10-22 02:00: 00 Yes 15mL 15 mL, Oral (Swish And Spit Out), BID, First dose on Sun10/21/21 at 1999, Until Discontinu ed, Routine [facility] dexMEDEtomi dine 200 mcg in 0.9 % NaCl 50 mL (PRECEDEX) RTU IV infusion 10-21 21:00: 00 10-22 15:22 :55 No .2ug/kg /h 0.2-1.5 mcg/kg/hr ?99.8 kg (4.99-37.4 25 mL/hr, rounded to 4.99-37.43 mL/hr), IV Infusion, TITRATE, Sedation-R ASS score (0 to -1), Starting on Sun10/21/21 at 1500
In itiate infusion at 0.2 mcg/kg/hr and titrate by 0.1 mcg/kg/hr every 30 minutes to goal sedation score. Maximum dose = 1.5 mcg/kg/hr. If goal not maintained at maximum allowed dose, contact prescriber .
[facility] propofoL IV infusion 10-21 20:41: 59 10-22 15:22 :55 No 5ug/kg/ min 5-50 mcg/kg/min ?99.8 kg (2.994-29. 94 mL/hr, rounded to 2.99-29.94 mL/hr), IV Infusion, TITRATE, [...] vials should be discarded after 12 hours.
[facility] fentaNYL PF (SUBLIMAZE) STD 2,500 mcg in NaCl 0.9% (NS) 250 mL infusion RTU 10-21 19:53: 24 10-22 15:22 :55 No 25ug/h 25-200 mcg/hr (2.5-20 mL/hr), IV Infusion, TITRATE, CPOT/Pain Scale Goals Determined by Provider, Starting on Sun10/21/21 at 1353
In itiate infusion at 25 mcg/hr. Titrate by 25 mcg/hr every 1 minute to 15 minutes to identified goal pain and/or sedation scores. Maximum dose = 200 mcg/hr. If goal not maintained at maximum allowed dose, contact prescriber .
[facility] lidocaine 4% (XYLOCAINE) 4 % (40 mg/mL) topical solution 10-21 19:00: 00 Yes PRN, Starting on Sun10/21/21 at 1300, Until Discontinu ed, Routine, Intra-op [facility] lidocaine 4% (XYLOCAINE) 4 % (40 mg/mL) topical solution 10-21 19:00: 00 Yes PRN, Starting on Sun10/21/21 at 1300, Until Discontinu ed, Routine, Intra-op [facility] methylpredn isolone sod succ (SOLU-MEDRO L) injection 125 mg 10-21 19:00: 00 10-22 15:22 :22 No 125mg 125 mg, Intravenou s, Q6H, First dose (after last modificati on) on Sun10/21/21 at 1300, Until Discontinu ed, Routine [facility] metoprolol (LOPRESSOR) injection 5 mg 10-21 19:00: 00 10-21 19:00 :00 No 5mg 5 mg, Slow IV Push, ONCE, 1 dose, On Sun10/21/21 at 1300, Routine [facility] EPINEPHrine 1:1,000 (1 mg/mL) (ADRENALIN) injection 10-21 18:01: 00 Yes PRN, Starting on Sun10/21/21 at 1201, Until Discontinu ed, Routine, Intra-op [facility] EPINEPHrine 1:1,000 (1 mg/mL) (ADRENALIN) injection 10-21 18:01: 00 Yes PRN, Starting on Sun10/21/21 at 1201, Until Discontinu ed, Routine, [facility] (ZOFRAN (PF)) [facility] 4 mg 10-21 17:19: 50 Yes 4mg 4 mg, Slow IV Push, PRN, 1 dose, Starting on Sun10/21/21 at 1119, Until Discontinu ed, Routine, Nausea and Vomiting (N/V), PACU [facility] ondansetron (ZOFRAN (PF)) injection 4 mg 10-21 17:19: 50 Yes 4mg 4 mg, Slow IV Push, PRN, 1 dose, Starting on Sun10/21/21 at 1119, Until Discontinu ed, Routine, Nausea and Vomiting (N/V), PACU [facility] NaCl 0.9% (NS) injection 10-21 17:01: 00 Yes PRN, Starting on Sun10/21/21 at 1101, Until Discontinu ed, Routine, Intra-op [facility] NaCl 0.9% (NS) injection 10-21 17:01: 00 Yes PRN, Starting on Sun10/21/21 at 1101, Until Discontinu ed, Routine, Intra-op [facility] morpHINE injection 4 mg 10-20 23:22: 52 Yes 4mg 4 mg, Slow IV Push, Q4HPRN, Starting on Sun10/20/21 at 1722, Until Discontinu ed, Routine, Pain (scale 7-10) [facility] morpHINE injection 4 mg 10-20 23:22: 52 Yes 4mg 4 mg, Slow IV Push, Q4HPRN, Starting on Sun10/20/21 at 1722, Until Discontinu ed, Routine, Pain (scale 7-10) [facility] methylpredn isolone sod succ (SOLU-MEDRO L) injection 125 mg 10-20 20:00: 00 10-21 17:53 :24 No 125mg 125 mg, Intravenou s, Q8H, First dose (after last modificati on) on Sun10/20/21 at 1400, Until Discontinu ed, Routine [facility] furosemide (LASIX) injection 40 mg 10-20 18:00: 00 10-20 18:19 :00 No 40mg 40 mg, Slow IV Push, ONCE, 1 dose, On Sun10/20/21 at 1200, [facility] ([facility]ONIX[facility] EC tablet 40 mg 10-20 16:45: 00 Yes 40mg 40 mg, Oral, DAILY, First dose on Sun10/20/21 at 1045, Until Discontinu ed, Routine [facility] (PROTONIX) EC tablet 40 mg 10-20 16:45: 00 Yes 40mg 40 mg, Oral, DAILY, First dose on Sun10/20/21 at 1045, Until Discontinu ed, [facility]ine [facility] alum-mag hydroxide-s imeth (MAALOX PLUS / MAG-AL PLUS) 200-200-20 mg/5 mL suspension 30 mL 10-20 16:37: 49 Yes 30mL 30 mL, Oral, Q6HPRN, Starting on Sun10/20/21 at 1037, Until Discontinu ed, Routine, Indigestio n [facility] alum-mag hydroxide-s imeth (MAALOX PLUS / MAG-AL PLUS) 200-200-20 mg/5 mL suspension 30 mL 10-20 16:37: 49 Yes 30mL 30 mL, Oral, Q6HPRN, Starting on Sun10/20/21 at 1037, Until Discontinu ed, Routine, [facility]io n [facility] acetaminoph en (TYLENOL) tablet 650 mg 10-20 16:16: 26 10-21 17:01 :51 No 650mg 650 mg, Oral, Q6HPRN, Starting on Sun10/20/21 at 1016, Until Sun10/21/21 at 1101, Routine, Pain (scale 1-3) [facility] polyethylen e glycol 3350 powder 17 g 10-20 15:00: 00 Yes 17g 17 g, Oral, DAILY, First dose on Sun10/20/21 at 0900, Until Discontinu ed, Routine [facility] polyethylen e glycol 3350 powder 17 g 10-20 15:00: 00 Yes 17g 17 g, Oral, DAILY, First dose on Sun10/20/21 at 0900, Until Discontinu ed, Routine [facility] docusate (COLACE) capsule 100 mg 10-20 02:00: 00 Yes 100mg 100 mg, Oral, BID, First dose on Sun10/19/21 at 2000, Until Discontinu ed, [facility]ine [facility] 100 mg 10-20 02:00: 00 Yes 100mg 100 mg, Oral, BID, First dose on Sun10/19/21 at 2000, Until Discontinu ed, Routine [facility] hydralAZINE (APRESOLINE ) injection 10 mg 10-19 11:35: 36 Yes 10mg 10 mg, Slow IV Push, Q4HPRN, Starting on Sun10/19/21 at 0535, Until Discontinu ed, Routine, systolic BP >180
In dication: Hypertensi ve Emergency [facility] hydralAZINE (APRESOLINE ) injection 10 mg 10-19 11:35: 36 Yes 10mg 10 mg, Slow IV Push, Q4HPRN, Starting on Sun10/19/21 at 0535, Until Discontinu ed, Routine, systolic BP >180
In dication: Hypertensi ve Emergency [facility] haloperidol lactate (HALDOL) injection 5 mg 10-19 08:42: 00 10-19 08:44 :00 No 5mg 5 mg, Slow IV Push, ONCE, 1 dose, On Sun10/19/21 at 0245, Routine [facility] pantoprazol e (PROTONIX) injection 40 mg 10-18 01:45: 00 10-20 16:42 :17 No 40mg 40 mg, Slow IV Push, Q24H, First dose on Sun10/17/21 at 1945, Until Discontinu ed [facility]predn isolone sod succ (SOLU-MEDRO L) injection 125 mg 10-17 18:30: 00 10-20 18:10 :46 No 125mg 125 mg, Intravenou s, Q6H, First dose on Sun10/17/21 at 1230, Until Discontinu ed, [facility]ine [facility] zipras[facility] (GEODON) injection 10 mg 10-17 18:30: 00 10-17 17:35 :00 No 10mg 10 mg, Intramuscu lar, ONCE, 1 dose, On Sun10/17/21 at 1230, Routine [facility] methylPREDN ISolone sodium succinate (SOLU-MEDRO L) injection 125 mg 10-17 18:00: 00 10-17 18:28 :52 No 125mg 125 mg, Slow IV Push, Q6H, First dose on Sun10/17/21 at 1200, Until Discontinu ed, Routine [facility] thiamine (VITAMIN B1) 100 mg in NaCl 0.9% (NS) piggyback 10-17 17:45: 00 10-19 14:08 :00 No 100mg IV Piggyback, DAILY, 3 doses, First dose on Sun10/17/21 at 1145, Last dose on Sun10/19/21 at 0900, 50 mL [facility] LORazepam (ATIVAN) injection 1 mg 10-17 17:00: 00 10-19 17:33 :38 No 1mg 1 mg, Slow IV Push, Q4HPRN, Starting on Sun10/17/21 at 1100, Until Sun10/19/21 at 1133, Routine, Anxiety, Agitation [facility] ipratropium -albuteroL (DUONEB) 0.5 mg-3 mg(2.5 mg base)/3 mL nebulizer solution 3 mL 10-17 14:00: 00 Yes 3mL 3 mL, Inhalation , Q4H, First dose on Sun10/17/21 at 0800, Until Discontinu ed, Routine [facility] ipratropium -albuteroL (DUONEB) 0.5 mg-3 mg(2.5 mg base)/3 mL nebulizer solution 3 mL 10-17 14:00: 00 Yes 3mL 3 mL, Inhalation , Q4H, First dose on Sun10/17/21 at 0800, Until Discontinu ed, Routine [facility] lidocaine 1% (PF) (XYLOCAINE) injection 5 mL 10-17 13:45: 00 10-17 13:45 :00 No 5mL 5 mL, Subcutaneo us, ONCE, 1 dose, On Sun10/17/21 at 0745, Routine [facility] NaCl 0.9% (NS) injection 10 mL 10-17 13:27: 33 Yes 10mL 10 mL, Slow IV Push, PRN, Starting on Sun10/17/21 at 0727, Until Discontinu ed, Routine, line maintenanc e [facility] NaCl 0.9% (NS) injection 10 mL 10-17 13:27: 33 Yes 10mL 10 mL, Slow IV Push, PRN, Starting on Sun10/17/21 at 0727, Until Discontinu ed, Routine, line maintenanc e [facility] haloperidol lactate (HALDOL) injection 5 mg 10-17 04:00: 00 10-17 03:03 :00 No 5mg 5 mg, Slow IV Push, ONCE, 1 dose, On Sun10/16/21 at 2200, Routine [facility] busPIRone (BUSPAR) tablet 5 mg 10-17 02:00: 00 Yes 5mg 5 mg, Oral, BID, First dose on Sun10/16/21 at 2000, Until Discontinu ed, [facility]ine [facility] 5 mg 10-17 02:00: 00 Yes 5mg 5 mg, Oral, BID, First dose on Sun10/16/21 at 2000, Until Discontinu ed, Routine [facility] methylpredn isolone sod succ (SOLU-MEDRO L) injection 60 mg 10-16 23:00: 00 10-17 17:25 :30 No 60mg 60 mg, Slow IV Push, Q8H, First dose on Sun10/16/21 at 1700, Until Discontinu ed, Routine [facility] HYDROcodone -acetaminop hen (NORCO 5) 5-325 mg tablet 1 tablet 10-16 19:49: 46 10-21 17:01 :51 No 1{tbl} 1 tablet, Oral, Q6HPRN, Starting on Sun10/16/21 at 1349, Until Sun10/21/21 at 1101, Routine, Pain (scale 4-6) [facility] cefTRIAXone (ROCEPHIN) 1,000 mg in NaCl 0.9% (NS) 50 mL MINI-BAG 10-16 18:30: 00 10-20 18:56 :00 No 1000mg 1,000 mg, IV Piggyback, Q24H ABX, 5 doses, First dose on Sun10/16/21 at 1230, Last dose on Sun10/20/21 at 1230, Administer over 30 Minutes, 50 mL
Reas on for Anti-Infec tive: Documented Infection< br>Documen britney Infection Site: Respirator y
Durat ion of Therapy: Other (see Comments) [facility] azithromyci n (ZITHROMAX) 500 mg in NaCl 0.9% (NS) 250 mL VIAL-MATE IV piggyback 10-16 18:30: 00 10-18 19:16 :00 No 500mg 500 mg, IV Piggyback, Q24H ABX, 3 doses, First dose on Sun10/16/21 at 1230, Last dose on Sun10/18/21 at 1230, Administer over 60 Minutes, 250 mL
Reas on for Anti-Infec tive: Documented Infection< br>Documen britney Infection Site: Respirator y
Durat ion of Therapy: Other (see Comments) [facility] dexMEDEtomi dine 400 mcg in 0.9 % NaCl 100 mL (PRECEDEX) RTU IV infusion 10-16 01:46: 06 10-20 16:42 :17 No .2ug/kg /h 0.2-1.5 mcg/kg/hr ?100 kg (5-37.5 mL/hr), IV Infusion, TITRATE, Sedation-R ASS score (0 to -1), Starting on 10/15/21 at 1946
In itiate infusion at 0.2 mcg/kg/hr and titrate by 0.1 mcg/kg/hr every 30 minutes to goal sedation score. Maximum dose = 1.5 mcg/kg/hr. If goal not maintained at maximum allowed dose, contact prescriber .
[facility] LORazepam (ATIVAN) injection 0.5 mg 10-15 21:43: 49 10-17 16:47 :31 No .5mg 0.5 mg, Slow IV Push, [id number], Starting on 10/15/21 at 1543, Until 10/17/21 at 1047, Routine, Anxiety [facility] iopamidol (ISOVUE 370-500 mL) injection 100 mL 10-15 20:30: 00 10-15 19:21 :00 No [id number] 100mL 100 mL, Intravenou s, ONCE, 1 dose, On 10/15/21 at 1430, Routine [facility] enoxaparin (LOVENOX) injection 40 mg 10-15 17:15: 00 10-20 16:42 :18 No 40mg 40 mg, Subcutaneo us, Q24H, First dose on 10/15/21 at 1115, Until Discontinu ed, Routine [facility] levoFLOXaci n in D5W (LEVAQUIN) 750 mg/150 mL Piggyback 750 mg 10-15 17:15: 00 10-16 17:25 :46 No 750mg 750 mg, IV Piggyback, Q24H ABX, First dose on 10/15/21 at 1115, Until Discontinu ed, Administer over 90 Minutes, 150 mL
Reas on for Anti-Infec tive: Empiric Therapy for Suspected Infection& lt;br>Empi leandro Therapy Site: Respirator y
Durat ion of therapy: 72 hours [facility] furosemide (LASIX) injection 20 mg 10-15 14:30: 00 10-15 13:38 :00 No 20mg 20 mg, IV Push, ONCE, 1 dose, On 10/15/21 at 0830, Routine [facility] calcium gluconate 1 g in NaCl 50 mL (ISO-OSM) RTU IV infusion 1 g 10-15 14:15: 00 10-15 13:37 :00 No 1g 1 g, IV Infusion, ONCE, 1 dose, On 10/15/21 at 0815, Routine [facility] insulin regular human (HUMULIN R) injection 10 Units 10-15 14:15: 00 10-15 13:37 :00 No 10U 10 Units, IV Push, ONCE, 1 dose, On 10/15/21 at 0815, Routine [facility] dextrose 50 % in water (D50W) injection 50 mL 10-15 14:15: 00 10-15 13:37 :00 No 50mL 50 mL, Slow IV Push, ONCE, 1 dose, On 10/15/21 at 0815, Routine [facility] heparin (porcine) injection 5,000 Units 10-15 12:00: 00 10-15 16:12 :17 No 5000U 5,000 Units, Subcutaneo us, Q8H, First dose on 10/15/21 at 0600, Until Discontinu ed, Routine [facility] vancomycin 1500 mg in NS 500 mL IV Piggyback RTU 1,500 mg 10-15 10:00: 00 10-15 16:12 :17 No 15mg/kg 1,500 mg (15 mg/kg ?100 kg), IV Piggyback, Q12H ABX, First dose on 10/15/21 at 0400, Until Discontinu ed, Administer over 90 Minutes
Reason for Anti-Infec tive: Documented Infection< br>Docu mented Infection Site: Blood
D uration of Therapy: 7 days [facility] ceFEPIme (MAXIPIME) 1,000 mg in NaCl 0.9% (NS) 50 mL MINI-BAG 10-15 09:15: 00 10-15 16:12 :17 No 1000mg 1,000 mg, IV Piggyback, Q12H ABX, First dose on 10/15/21 at 0315, Until Discontinu ed, Administer over 30 Minutes, 50 mL
Reas on for Anti-Infec tive: Documented Infection< br>Documen britney Infection Site: Blood
D uration of Therapy: 7 days [facility] ipratropium -albuteroL (DUONEB) 0.5 mg-3 mg(2.5 mg base)/3 mL nebulizer solution 3 mL 10-15 08:07: 12 Yes 3mL 3 mL, Inhalation , QIDPRN, Starting on 10/15/21 at 0207, Until Discontinu ed, Routine, Wheezing, Shortness of Breath, Bronchospa sm [facility] ipratropium -albuteroL (DUONEB) 0.5 mg-3 mg(2.5 mg base)/3 mL nebulizer solution 3 mL 10-15 08:07: 12 Yes 3mL 3 mL, Inhalation , QIDPRN, Starting on 10/15/21 at 0207, Until Discontinu ed, Routine, Wheezing, Shortness of Breath, Bronchospa sm [facility] morpHINE injection 4 mg 10-15 08:04: 38 10-19 17:33 :44 No 4mg 4 mg, Slow IV Push, Q4HPRN, Starting on 10/15/21 at 0204, Until 10/19/21 at 1133, Routine, Pain (scale 7-10) [facility] methylPREDN ISolone 4 mg tablets 10-06 00:00: 00 Yes Follow schedule on package instructio ns [facility] methocarbam oL 500 mg tablet 10-06 00:00: 00 Yes 500mg Take 500 mg by mouth. [facility] methylPREDN ISolone 4 mg tablets 10-06 00:00: 00 Yes Follow schedule on package instructio ns [facility] methocarbam oL 500 mg tablet 2 00:00: 00 Yes 500mg Take 1 tablet by mouth. [facility] methylPREDN ISolone 4 mg tablets 10-06 00:00: 00 Yes Follow schedule on package instructio ns [facility] methocarbam oL 500 mg tablet 2 00:00: 00 Yes 500mg Take 1 tablet by mouth. [facility] methylPREDN ISolone 4 mg tablets 2 00:00: 00 Yes Follow schedule on package instructio ns [facility] methocarbam oL 500 mg tablet 0 2 00:00: 00 Yes 500mg Take 1 tablet by mouth. [facility] methylPREDN ISolone 4 mg tablets 2- 00:00: 00 Yes Follow schedule on package instructio ns [facility] methocarbam oL 500 mg tablet 0 2- 00:00: 00 Yes 500mg Take 1 tablet by mouth. [facility] methylPREDN ISolone 4 mg tablets 10-06 00:00: 00 Yes Follow schedule on package instructio ns [facility] methocarbam oL 500 mg tablet 10-06 00:00: 00 Yes 500mg Take 1 tablet by mouth. [facility] zolpidem 10 mg tablet - 00:00: 00 Yes 10mg Take 10 mg by mouth. [facility] zolpidem 10 mg tablet 09-06 00:00: 00 Yes 10mg Take 1 tablet by mouth. [facility] zolpidem 10 mg tablet 09-06 00:00: 00 Yes 10mg Take 1 tablet by mouth. [facility] zolpidem 10 mg tablet 09-06 00:00: 00 Yes 10mg Take 1 tablet by mouth. [facility] zolpidem 10 mg tablet 09-06 00:00: 00 Yes 10mg Take 1 tablet by mouth. [facility] zolpidem 10 mg tablet 09-06 00:00: 00 Yes 10mg Take 1 tablet by mouth. [facility] ALPRAZolam 1 mg tablet 09-05 00:00: 00 Yes 1mg Take 1 mg by mouth. [facility] ALPRAZolam 1 mg tablet 09-05 00:00: 00 Yes 1mg Take 1 tablet by mouth. [facility] ALPRAZolam 1 mg tablet 09-05 00:00: 00 Yes 1mg Take 1 tablet by mouth. [facility] ALPRAZolam 1 mg tablet 09-05 00:00: 00 Yes 1mg Take 1 tablet by mouth. [facility] ALPRAZolam 1 mg tablet 09-05 00:00: 00 Yes 1mg Take 1 tablet by mouth. [facility] ALPRAZolam 1 mg tablet - 00:00: 00 Yes 1mg Take 1 tablet by mouth. [facility] FLUoxetine 40 mg capsule 2020-09 2-15 00:00: 00 Yes Take by mouth. [facility] FLUoxetine 40 mg capsule 2020-09 2-15 00:00: 00 Yes Take by mouth. [facility] FLUoxetine 40 mg capsule 2020-09 2-15 00:00: 00 Yes Take by mouth. [facility] FLUoxetine 40 mg capsule 2020-09 2-15 00:00: 00 Yes Take by mouth. [facility] FLUoxetine 40 mg capsule 2020-09 2- 00:00: 00 Yes Take by mouth. [facility] FLUoxetine 40 mg capsule 2020-09 2 00:00: 00 Yes Take by mouth. [facility] amLODIPine 10 mg tablet 2020-09 00:00: 00 Yes 10mg Take 10 mg by mouth. [facility] amLODIPine 10 mg tablet 2020-09 00:00: 00 Yes 10mg Take 1 tablet by mouth. [facility] amLODIPine 10 mg tablet 2020-09 00:00: 00 Yes 10mg Take 1 tablet by mouth. [facility] amLODIPine 10 mg tablet 2020-09 00:00: 00 Yes 10mg Take 1 tablet by mouth. [facility] amLODIPine 10 mg tablet 2020-09 00:00: 00 Yes 10mg Take 1 tablet by mouth. [facility] amLODIPine 10 mg tablet 2020-09 00:00: 00 Yes 10mg Take 1 tablet by mouth. [facility] medroxyprog esterone 150 mg/mL intramuscul ar suspension 2020-09 0- 00:00: 00 No 1mg/mL medroxyprog esterone 150 mg/mL intramuscul ar suspension 2020-09 0- 00:00: 00 No 1mg/mL medroxyprog esterone 150 mg/mL intramuscul ar suspension 2020-09 0-21 00:00: 00 No 1mg/mL medroxyprog esterone 150 mg/mL intramuscul ar suspension 2020-09 0-21 00:00: 00 No 1mg/mL metronidazo le 500 mg tablet 2020-09 0-14 00:00: 00 No 1mg metronidazo le 500 mg tablet 2020-09 0-14 00:00: 00 No 1mg metronidazo le 500 mg tablet 2020-09 0-14 00:00: 00 No 1mg metronidazo le 500 mg tablet 2020-09 0-14 00:00: 00 No 1mg Flagyl 500 mg tablet 2020-09 0-11 00:00: 00 No 1mg Flagyl 500 mg tablet 2020-09 0- 00:00: 00 No 1mg Flagyl 500 mg tablet 2020-09 0-11 00:00: 00 No 1mg Dose Unknown 2020-09 0 00:00: 00 No Flagyl 500 mg tablet 2020-09 0 00:00: 00 No 1mg Dose Unknown 2020-09 0 00:00: 00 No Flagyl 500 mg tablet 2020-09 0 00:00: 00 No 1mg Flagyl 500 mg tablet 2020-09 0 00:00: 00 No 1mg medroxyprog esterone 150 mg/mL intramuscul ar suspension 24 00:00: 00 No 1mg/mL medroxyprog esterone 150 mg/mL intramuscul ar suspension 24 00:00: 00 No 1mg/mL medroxyprog esterone 150 mg/mL intramuscul ar suspension 24 00:00: 00 No 1mg/mL medroxyprog esterone 150 mg/mL intramuscul ar suspension 24 00:00: 00 No 1mg/mL lurasidone HCl (LATUDA ORAL) 17 10:16: 57 Yes Take by mouth. [facility] betamethaso ne valerate 0.1 % ointment 01-24 00:00: 00 Yes SMILYE EXT AA BID [facility] triamterene -hydrochlor othiazide 37.5-25 mg per capsule 01-24 00:00: 00 Yes TK 1 C PO QAM [facility] betamethaso ne valerate 0.1 % ointment 01-24 00:00: 00 Yes SMILEY EXT AA BID [facility] triamterene -hydrochlor othiazide 37.5-25 mg per capsule 01-24 00:00: 00 Yes TK 1 C PO QAM [facility] betamethaso ne valerate 0.1 % ointment 01-24 00:00: 00 Yes SMILEY EXT AA BID [facility] triamterene -hydrochlor othiazide 37.5-25 mg per capsule 01-24 00:00: 00 Yes TK 1 C PO QAM [facility] betamethaso ne valerate 0.1 % ointment 01-24 00:00: 00 Yes SMILEY EXT AA BID [facility] betamethaso ne valerate 0.1 % ointment 01-24 00:00: 00 Yes SMILEY EXT AA BID [facility] triamterene -hydrochlor othiazide 37.5-25 mg per capsule 01-24 00:00: 00 Yes TK 1 C PO QAM [facility] triamterene -hydrochlor othiazide 37.5-25 mg per capsule 01-24 00:00: 00 Yes TK 1 C PO QAM [facility] betamethaso ne valerate 0.1 % ointment 01-24 00:00: 00 Yes SMILEY EXT AA BID [facility] triamterene -hydrochlor othiazide 37.5-25 mg per capsule 01-24 00:00: 00 Yes TK 1 C PO QAM [facility] betamethaso ne valerate 0.1 % ointment 01-24 00:00: 00 Yes SMILEY EXT AA BID [facility] triamterene -hydrochlor othiazide 37.5-25 mg per capsule 01-24 00:00: 00 Yes TK 1 C PO QAM [facility] betamethaso ne valerate 0.1 % ointment 01-24 00:00: 00 Yes SMILEY EXT AA BID [facility] triamterene -hydrochlor othiazide 37.5-25 mg per capsule 01-24 00:00: 00 Yes TK 1 C PO QAM [facility] betamethaso ne valerate 0.1 % ointment 01-24 00:00: 00 12-05 00:00 :00 No SMILEY EXT AA BID [facility] triamterene -hydrochlor othiazide 37.5-25 mg per capsule 01-24 00:00: 00 12-05 00:00 :00 No TK 1 C PO QAM [facility] DEXILANT 60 mg capsule 05-31 00:00: 00 Yes TK 1 C PO QD [facility] DEXILANT 60 mg capsule 05-31 00:00: 00 Yes TK 1 C PO QD [facility] DEXILANT 60 mg capsule 05-31 00:00: 00 Yes TK 1 C PO QD [facility] DEXILANT 60 mg capsule 05-31 00:00: 00 Yes TK 1 C PO QD [facility] DEXILANT 60 mg capsule 05-31 00:00: 00 Yes TK 1 C PO QD [facility] DEXILANT 60 mg capsule 05-31 00:00: 00 Yes TK 1 C PO QD [facility] DEXILANT 60 mg capsule 05-31 00:00: 00 Yes TK 1 C PO QD [facility] DEXILANT 60 mg capsule 05-31 00:00: 00 Yes TK 1 C PO QD [facility] DEXILANT 60 mg capsule 05-31 00:00: 00 12-05 00:00 :00 No TK 1 C PO QD [facility] proMETHazin e 25 mg tablet 11-29 00:00: 00 Yes TK 1 T PO Q 12 H PRN FOR 30 DAYS [facility] proMETHazin e 25 mg tablet 11-29 00:00: 00 Yes TK 1 T PO Q 12 H PRN FOR 30 DAYS [facility] proMETHazin e 25 mg tablet 11-29 00:00: 00 Yes TK 1 T PO Q 12 H PRN FOR 30 DAYS [facility] proMETHazin e 25 mg tablet 11-29 00:00: 00 Yes TK 1 T PO Q 12 H PRN FOR 30 DAYS [facility] proMETHazin e 25 mg tablet 11-29 00:00: 00 Yes TK 1 T PO Q 12 H PRN FOR 30 DAYS [facility] proMETHazin e 25 mg tablet 11-29 00:00: 00 Yes TK 1 T PO Q 12 H PRN FOR 30 DAYS [facility] proMETHazin e 25 mg tablet 11-29 00:00: 00 Yes TK 1 T PO Q 12 H PRN FOR 30 DAYS [facility] proMETHazin e 25 mg tablet 11-29 00:00: 00 Yes TK 1 T PO Q 12 H PRN FOR 30 DAYS [facility] proMETHazin e 25 mg tablet 11-29 00:00: 00 12-05 00:00 :00 No TK 1 T PO Q 12 H PRN FOR 30 DAYS [facility] amLODIPine 5 mg tablet 11-21 00:00: 00 Yes TK 1 T PO Q NIGHTLY [facility] amLODIPine 5 mg tablet 11-21 00:00: 00 Yes TK 1 T PO Q NIGHTLY [facility] amLODIPine 5 mg tablet 11-21 00:00: 00 Yes TK 1 T PO Q NIGHTLY [facility] amLODIPine 5 mg tablet 11-21 00:00: 00 Yes TK 1 T PO Q NIGHTLY [facility] amLODIPine 5 mg tablet 11-21 00:00: 00 Yes TK 1 T PO Q NIGHTLY [facility] amLODIPine 5 mg tablet 11-21 00:00: 00 Yes TK 1 T PO Q NIGHTLY [facility] amLODIPine 5 mg tablet 11-21 00:00: 00 Yes TK 1 T PO Q NIGHTLY [facility] amLODIPine 5 mg tablet 11-21 00:00: 00 Yes TK 1 T PO Q NIGHTLY [facility] amLODIPine 5 mg tablet 11-21 00:00: 00 12-05 00:00 :00 No TK 1 T PO Q NIGHTLY [facility] HYDROcodone -acetaminop hen 10-325 mg tablet 10-11 00:00: 00 Yes 1{tbl} Take 1 tablet by mouth. [facility] HYDROcodone -acetaminop hen 10-325 mg tablet 10-11 00:00: 00 10-24 00:00 :00 No 1{tbl} Take 1 tablet by mouth. [facility] HYDROcodone -acetaminop hen 10-325 mg tablet 10-11 00:00: 00 10-24 00:00 :00 No 1{tbl} Take 1 tablet by mouth. [facility] Zoloft 100 mg tablet 12-17 00:00: 00 No 15mg trazodone 100 mg tablet 12-17 00:00: 00 No 51mg Dose Unknown 12-17 00:00: 00 No Dose Unknown 12-17 00:00: 00 No Zoloft 100 mg tablet 12-17 00:00: 00 No 15mg Dose Unknown 12-17 00:00: 00 No Dose Unknown 12-17 00:00: 00 No trazodone 100 mg tablet 12-17 00:00: 00 No 51mg betamethaso ne dipropionat e (DIPROLENE) 0.05 % cream 10-16 00:00: 00 Yes [id number] Apply to area(s) two (2) times daily. [facility] betamethaso ne dipropionat e (DIPROLENE) 0.05 % cream 10-16 00:00: 00 Yes [id number] Apply to area(s) two (2) times daily. [facility] betamethaso ne dipropionat e (DIPROLENE) 0.05 % cream 10-16 00:00: 00 Yes [id number] Apply to area(s) two (2) times daily. [facility] betamethaso ne dipropionat e (DIPROLENE) 0.05 % cream 10-16 00:00: 00 Yes [id number] Apply to area(s) two (2) times daily. [facility] betamethaso ne dipropionat e (DIPROLENE) 0.05 % cream 10-16 00:00: 00 Yes [id number] Apply to area(s) two (2) times daily. [facility] betamethaso ne dipropionat e (DIPROLENE) 0.05 % cream 10-16 00:00: 00 Yes [id number] Apply to area(s) two (2) times daily. [facility] betamethaso ne dipropionat e (DIPROLENE) 0.05 % cream 10-16 00:00: 00 Yes [id number] Apply to area(s) two (2) times daily. [facility] betamethaso ne dipropionat e (DIPROLENE) 0.05 % cream 10-16 00:00: 00 Yes [id number] Apply to area(s) two (2) times daily. [facility] betamethaso ne dipropionat e (DIPROLENE) 0.05 % cream 10-16 00:00: 00 12-05 00:00 :00 No [id number] Apply to area(s) two (2) times daily. [facility] Immunizations Ordered Immunization Name Filled Immunization Name Date Status Comments Source SARS-COV-2 COVID-19 MODERNA VACCINE 2021-03-03 00:00:00 Completed [facility] SARS-COV-2 COVID-19 MODERNA VACCINE 2021-03-03 00:00:00 Completed [facility] SARS-COV-2 COVID-19 MODERNA VACCINE 2021-03-03 00:00:00 Completed [facility] SARS-COV-2 COVID-19 MODERNA VACCINE 2021-03-03 00:00:00 Completed [facility] SARS-COV-2 COVID-19 MODERNA VACCINE 2021-03-03 00:00:00 Completed [facility] SARS-COV-2 COVID-19 MODERNA VACCINE 2021-03-03 00:00:00 Completed [facility] SARS-COV-2 COVID-19 MODERNA 12+ YRS VACCINE 2021-03-03 00:00:00 Completed [facility] SARS-COV-2 COVID-19 MODERNA 12+ YRS VACCINE 2021-03-03 00:00:00 Completed [facility] SARS-COV-2 COVID-19 MODERNA 12+ YRS VACCINE 2021-03-03 00:00:00 Completed [facility] SARS-COV-2 COVID-19 MODERNA 12+ YRS VACCINE 2021-03-03 00:00:00 Completed [facility] SARS-COV-2 COVID-19 MODERNA 12+ YRS VACCINE 2021-03-03 00:00:00 Completed [facility] SARS-COV-2 COVID-19 MODERNA 12+ YRS VACCINE 2021-03-03 00:00:00 Completed [facility] SARS-COV-2 COVID-19 MODERNA 12+ YRS VACCINE 2021-03-03 00:00:00 Completed [facility] SARS-COV-2 COVID-19 MODERNA 12+ YRS VACCINE 2021-03-03 00:00:00 Completed [facility] SARS-COV-2 COVID-19 MODERNA VACCINE 2021-03-03 00:00:00 Completed [facility] SARS-COV-2 COVID-19 MODERNA VACCINE 2021-03-03 00:00:00 Completed [facility] SARS-COV-2 COVID-19 MODERNA VACCINE 2021-03-03 00:00:00 Completed [facility] SARS-COV-2 COVID-19 MODERNA VACCINE 2021-03-03 00:00:00 Completed [facility] SARS-COV-2 COVID-19 MODERNA VACCINE 2021-03-03 00:00:00 Completed [facility] SARS-COV-2 COVID-19 MODERNA VACCINE 2021-03-03 00:00:00 Completed [facility] SARS-COV-2 COVID-19 MODERNA VACCINE 2021-03-03 00:00:00 Completed [facility] SARS-COV-2 COVID-19 MODERNA VACCINE 2021-03-03 00:00:00 Completed [facility] SARS-COV-2 COVID-19 MODERNA VACCINE 2021-03-03 00:00:00 Completed [facility] SARS-COV-2 COVID-19 MODERNA VACCINE 2021-03-03 00:00:00 Completed [facility] SARS-COV-2 COVID-19 MODERNA VACCINE 2021-03-03 00:00:00 Completed [facility] SARS-COV-2 COVID-19 MODERNA VACCINE 2021-03-03 00:00:00 Completed [facility] SARS-COV-2 COVID-19 MODERNA VACCINE 2021-02-01 00:00:00 Completed [facility] SARS-COV-2 COVID-19 MODERNA VACCINE 2021-02-01 00:00:00 Completed [facility] SARS-COV-2 COVID-19 MODERNA VACCINE 2021-02-01 00:00:00 Completed [facility] SARS-COV-2 COVID-19 MODERNA VACCINE 2021-02-01 00:00:00 Completed [facility] SARS-COV-2 COVID-19 MODERNA VACCINE 2021-02-01 00:00:00 Completed [facility] SARS-COV-2 COVID-19 MODERNA VACCINE 2021-02-01 00:00:00 Completed [facility] SARS-COV-2 COVID-19 MODERNA 12+ YRS VACCINE 2021-02-01 00:00:00 Completed [facility] SARS-COV-2 COVID-19 MODERNA 12+ YRS VACCINE 2021-02-01 00:00:00 Completed [facility] SARS-COV-2 COVID-19 MODERNA 12+ YRS VACCINE 2021-02-01 00:00:00 Completed [facility] SARS-COV-2 COVID-19 MODERNA 12+ YRS VACCINE 2021-02-01 00:00:00 Completed [facility] SARS-COV-2 COVID-19 MODERNA 12+ YRS VACCINE 2021-02-01 00:00:00 Completed [facility] SARS-COV-2 COVID-19 MODERNA 12+ YRS VACCINE 2021-02-01 00:00:00 Completed [facility] SARS-COV-2 COVID-19 MODERNA 12+ YRS VACCINE 2021-02-01 00:00:00 Completed [facility] SARS-COV-2 COVID-19 MODERNA 12+ YRS VACCINE 2021-02-01 00:00:00 Completed [facility] SARS-COV-2 COVID-19 MODERNA VACCINE 2021-02-01 00:00:00 Completed [facility] SARS-COV-2 COVID-19 MODERNA VACCINE 2021-02-01 00:00:00 Completed [facility] SARS-COV-2 COVID-19 MODERNA VACCINE 2021-02-01 00:00:00 Completed [facility] SARS-COV-2 COVID-19 MODERNA VACCINE 2021-02-01 00:00:00 Completed [facility] SARS-COV-2 COVID-19 MODERNA VACCINE 2021-02-01 00:00:00 Completed [facility] SARS-COV-2 COVID-19 MODERNA VACCINE 2021-02-01 00:00:00 Completed [facility] SARS-COV-2 COVID-19 MODERNA VACCINE 2021-02-01 00:00:00 Completed [facility] SARS-COV-2 COVID-19 MODERNA VACCINE 2021-02-01 00:00:00 Completed [facility] SARS-COV-2 COVID-19 MODERNA VACCINE 2021-02-01 00:00:00 Completed [facility] SARS-COV-2 COVID-19 MODERNA VACCINE 2021-02-01 00:00:00 Completed [facility] SARS-COV-2 COVID-19 MODERNA VACCINE 2021-02-01 00:00:00 Completed [facility] SARS-COV-2 COVID-19 MODERNA VACCINE 2021-02-01 00:00:00 Completed [facility] Influenza, seasonal, inj 2020-09-02 00:00:00 Completed Influenza, seasonal, inj 2020-09-02 00:00:00 Completed Influenza, seasonal, inj 2020-09-02 00:00:00 Completed Influenza, seasonal, inj 2020-09-02 00:00:00 Completed Influenza Virus Vaccine 2007-07-02 00:00:00 Completed [facility] Influenza Virus Vaccine 2007-07-02 00:00:00 Completed [facility] Influenza Virus Vaccine 2007-07-02 00:00:00 Completed [facility] Influenza Virus Vaccine 2007-07-02 00:00:00 Completed [facility] Influenza Virus Vaccine 2007-07-02 00:00:00 Completed [facility] Influenza Virus Vaccine 2007-07-02 00:00:00 Completed [facility] Influenza Virus Vaccine 2007-07-02 00:00:00 Completed [facility] Influenza Virus Vaccine 2007-07-02 00:00:00 Completed [facility] Influenza Virus Vaccine 2007-07-02 00:00:00 Completed [facility] Influenza Virus Vaccine 2007-07-02 00:00:00 Completed [facility] Influenza Virus Vaccine 2007-07-02 00:00:00 Completed [facility] Influenza Virus Vaccine 2007-07-02 00:00:00 Completed [facility] Influenza Virus Vaccine 2007-07-02 00:00:00 Completed [facility] Influenza Virus Vaccine 2007-07-02 00:00:00 Completed [facility] Influenza Virus Vaccine 2007-07-02 00:00:00 Completed [facility] Influenza Virus Vaccine 2007-07-02 00:00:00 Completed [facility] Influenza Virus Vaccine 2007-07-02 00:00:00 Completed [facility] Influenza Virus Vaccine 2007-07-02 00:00:00 Completed [facility] Influenza Virus Vaccine 2007-07-02 00:00:00 Completed [facility] Influenza Virus Vaccine 2007-07-02 00:00:00 Completed [facility] Influenza Virus Vaccine 2007-07-02 00:00:00 Completed [facility] Influenza Virus Vaccine 2007-07-02 00:00:00 Completed [facility] Influenza Virus Vaccine 2007-07-02 00:00:00 Completed [facility] Influenza Virus Vaccine 2007-07-02 00:00:00 Completed [facility] Influenza Virus Vaccine 2007-07-02 00:00:00 Completed [facility] Influenza Virus Vaccine 2007-07-02 00:00:00 Completed [facility] Influenza Virus Vaccine 2007-07-02 00:00:00 Completed [facility] Influenza Virus Vaccine Unknown Completed [facility] SARS-COV-2 COVID-19 MODERNA 12+ YRS VACCINE Unknown Completed [facility] SARS-COV-2 COVID-19 MODERNA 12+ YRS VACCINE Unknown Completed [facility] Vital Signs Vital Name Observation Time Observation Value Laurita veras Weight 2023-06-03 21:47:00 90.1 KG Height 2023-05-04 15:00:00 162.56 CM Weight 2023-05-04 15:00:00 85 KG Height 2023-04-14 22:00:00 160.02 CM Weight 2023-04-14 22:00:00 86.45 KG Height 2023-02-08 07:40:00 160.02 CM Weight 2023-02-08 07:40:00 91.6 KG Height 2022-12-11 20:32:00 13.46 CM Weight 2022-12-11 20:32:00 86.63 KG Systolic blood pressure 2022-12-11 00:01:00 163 mm[Hg] [facility] Diastolic blood pressure 2022-12-11 00:01:00 96 mm[Hg] [facility] Heart rate 2022-12-11 00:01:00 79 /min [facility] Body temperature 2022-12-11 00:01:00 37.22 [place] [facility] Respiratory rate 2022-12-11 00:01:00 20 /min [facility] Body height 2022-12-11 00:01:00 160 cm [facility] Body weight 2022-12-11 00:01:00 87 kg [facility] BMI 2022-12-11 00:01:00 33.98 kg/m2 [facility] Oxygen saturation in Arterial blood by Pulse oximetry 2022-12-11 00:01:00 99 /min [facility] Systolic blood pressure 2022-11-05 21:43:00 123 mm[Hg] [facility] Diastolic blood pressure 2022-11-05 21:43:00 84 mm[Hg] [facility] Heart rate 2022-11-05 21:43:00 59 /min [facility] acute hospital Body temperature 2022-11-05 21:43:00 36.44 Carleen [facility] Oxygen saturation in Arterial blood by Pulse oximetry 2022-11-05 21:43:00 97 /min [facility] Respiratory rate 2022-11-05 17:22:00 17 /min [facility] Body height 2022-11-05 03:54:00 160 cm [facility] Body weight 2022-11-05 03:54:00 87.091 kg [facility] BMI 2022-11-05 03:54:00 34.01 kg/m2 [facility] Height 2022-08-17 11:26:00 Weight 2022-08-17 11:26:00 Systolic blood pressure 2022-07-27 13:18:00 146 mm[Hg] [facility] Diastolic blood pressure 2022-07-27 13:18:00 91 mm[Hg] [facility] Heart rate 2022-07-27 13:18:00 78 /min [facility] acute hospital Body temperature 2022-07-27 13:18:00 36.44 Carleen [facility] Respiratory rate 2022-07-27 13:18:00 18 /min [facility] Oxygen saturation in Arterial blood by Pulse oximetry 2022-07-27 13:18:00 94 /min [facility] Body height 2022-07-26 05:22:00 160 cm [facility] Body weight 2022-07-26 05:22:00 97.977 kg [facility] BMI 2022-07-26 05:22:00 38.26 kg/m2 [facility] Height 2022-07-20 13:40:00 160.02 CM Weight 2022-07-20 13:40:00 89.81 KG Height 2022-07-20 11:04:00 160.02 CM Weight 2022-07-20 11:04:00 81.64 KG Systolic blood pressure 2022-06-26 00:42:00 132 mm[Hg] [facility] Diastolic blood pressure 2022-06-26 00:42:00 81 mm[Hg] [facility] Heart rate 2022-06-26 00:42:00 104 /min [facility] acute hospital Body temperature 2022-06-26 00:42:00 36.67 Carleen [facility] Respiratory rate 2022-06-26 00:42:00 18 /min [facility] Oxygen saturation in Arterial blood by Pulse oximetry 2022-06-26 00:42:00 96 /min [facility] Body height 2022-06-25 00:54:00 160 cm [facility] Body weight 2022-06-25 00:54:00 98.884 kg [facility] BMI 2022-06-25 00:54:00 38.62 kg/m2 [facility] Height 2022-06-23 19:31:00 160.02 CM Weight 2022-06-23 19:31:00 86.18 KG Weight 2022-06-21 20:00:00 98.88 KG Height 2022-06-12 15:55:00 160.02 CM Weight 2022-06-12 15:55:00 81.64 KG Systolic blood pressure 2022-06-01 03:00:00 167 mm[Hg] [facility] Diastolic blood pressure 2022-06-01 03:00:00 102 mm[Hg] [facility] Heart rate 2022-06-01 03:00:00 94 /min [facility] acute hospital Respiratory rate 2022-06-01 03:00:00 20 /min [facility] Oxygen saturation in Arterial blood by Pulse oximetry 2022-06-01 03:00:00 98 /min [facility] Body height 2022-06-01 01:17:00 160 cm [facility] Body weight 2022-06-01 01:17:00 89.812 kg [facility] BMI 2022-06-01 01:17:00 35.07 kg/m2 [facility] Height 2022-04-05 15:26:00 160.02 CM Weight 2022-04-05 15:26:00 90.26 KG Systolic blood pressure 2022-02-26 13:59:00 136 mm[Hg] [facility] Diastolic blood pressure 2022-02-26 13:59:00 101 mm[Hg] [facility] Heart rate 2022-02-26 13:59:00 79 /min [facility] Body temperature 2022-02-26 13:59:00 36.78 Carleen [facility] Respiratory rate 2022-02-26 13:59:00 20 /min [facility] Oxygen saturation in Arterial blood by Pulse oximetry 2022-02-26 13:59:00 100 /min [facility] Body height 2022-02-26 04:37:00 160 cm [facility] Body weight 2022-02-26 04:37:00 92.08 kg [facility] BMI 2022-02-26 04:37:00 35.96 kg/m2 [facility] Systolic blood pressure 2022-02-23 06:00:00 115 mm[Hg] [facility] Diastolic blood pressure 2022-02-23 06:00:00 83 mm[Hg] [facility] Heart rate 2022-02-23 06:00:00 62 /min [facility] Respiratory rate 2022-02-23 06:00:00 18 /min [facility] Oxygen saturation in Arterial blood by Pulse oximetry 2022-02-23 06:00:00 97 /min [facility] Body temperature 2022-02-23 02:45:00 37.83 Carleen [facility] Body height 2022-02-23 02:45:00 160 cm [facility] Body weight 2022-02-23 02:45:00 92.08 kg [facility] BMI 2022-02-23 02:45:00 35.96 kg/m2 [facility] Systolic blood pressure 2022-01-29 21:54:12 118 mm[Hg] [facility] Diastolic blood pressure 2022-01-29 21:54:12 74 mm[Hg] [facility] Heart rate 2022-01-29 21:54:12 98 /min [facility] Respiratory rate 2022-01-29 21:54:12 24 /min [facility] Oxygen saturation in Arterial blood by Pulse oximetry 2022-01-29 21:54:12 98 /min [facility] Body temperature 2022-01-29 18:53:00 37 Carleen [facility] Body height 2022-01-29 18:53:00 160 cm [facility] Body weight 2022-01-29 18:53:00 90.719 kg [facility] BMI 2022-01-29 18:53:00 35.43 kg/m2 [facility] Systolic blood pressure 2022-01-29 15:01:00 138 mm[Hg] [facility] Diastolic blood pressure 2022-01-29 15:01:00 82 mm[Hg] [facility] Heart rate 2022-01-29 15:01:00 88 /min [facility] Respiratory rate 2022-01-29 15:01:00 15 /min [facility] Oxygen saturation in Arterial blood by Pulse oximetry 2022-01-29 15:01:00 96 /min [facility] Body temperature 2022-01-29 12:58:00 36.61 Carleen [facility] Body weight 2022-01-29 12:58:00 81.647 kg [facility] BMI 2022-01-29 12:58:00 31.89 kg/m2 [facility] Height 2022-01-05 08:28:00 160.02 CM Weight 2022-01-05 08:28:00 81.64 KG Systolic blood pressure 2022-01-03 04:43:12 152 mm[Hg] [facility] Diastolic blood pressure 2022-01-03 04:43:12 112 mm[Hg] [facility] Body temperature 2022-01-03 04:43:12 37.28 [facility] Respiratory rate 2022-01-03 04:43:12 17 /min [facility] Heart rate 2022-01-03 04:42:33 88 /min General acute hospital Oxygen saturation in Arterial blood by Pulse oximetry 2022-01-03 04:42:33 97 /min [facility] Body height 2022-01-03 02:36:00 160 cm [facility] Body weight 2022-01-03 02:36:00 81.647 kg Univ [facility] BMI 2022-01-03 02:36:00 31.89 kg/m2 Univ [facility] Body temperature 2021-12-07 13:30:00 37.17 Carleen [facility] Respiratory rate 2021-12-07 13:30:00 23 /min [facility] Oxygen saturation in Arterial blood by Pulse oximetry 2021-12-07 13:14:00 97 /min [facility] Systolic blood pressure 2021-12-07 09:00:00 157 mm[Hg] [facility] Diastolic blood pressure 2021-12-07 09:00:00 99 mm[Hg] [facility] Heart rate 2021-12-07 09:00:00 82 /min [facility] Body weight 2021-12-07 08:10:00 95.709 kg [facility] BMI 2021-12-07 08:10:00 37.38 kg/m2 [facility] Body height 2021-12-06 06:30:00 160 cm [facility] Systolic blood pressure 2021-12-05 09:10:00 126 mm[Hg] [facility] Diastolic blood pressure 2021-12-05 09:10:00 71 mm[Hg] [facility] Heart rate 2021-12-05 09:10:00 85 /min General acute hospital Body temperature 2021-12-05 09:10:00 36.83 Carleen [facility] Respiratory rate 2021-12-05 09:10:00 18 /min [facility] Oxygen saturation in Arterial blood by Pulse oximetry 2021-12-05 09:10:00 96 /min [facility] Body height 2021-12-03 23:16:00 160 cm Univ [facility] Body weight 2021-12-03 23:16:00 81.647 kg [facility] BMI 2021-12-03 23:16:00 31.89 kg/m2 [facility] Systolic blood pressure 2021-11-11 18:12:00 152 mm[Hg] [facility] Diastolic blood pressure 2021-11-11 18:12:00 93 mm[Hg] [facility] Heart rate 2021-11-11 18:12:00 108 /min [facility] Body temperature 2021-11-11 18:12:00 37.06 Carleen [facility] Respiratory rate 2021-11-11 18:12:00 20 /min [facility] Oxygen saturation in Arterial blood by Pulse oximetry 2021-11-11 18:12:00 95 /min [facility] Body height 2021-11-10 17:22:00 160 cm [facility] Body weight 2021-11-10 17:22:00 91 kg [facility] BMI 2021-11-10 17:22:00 35.54 kg/m2 [facility] Systolic blood pressure 2021-10-24 17:05:00 143 mm[Hg] [facility] Diastolic blood pressure 2021-10-24 17:05:00 90 mm[Hg] [facility] Heart rate 2021-10-24 17:05:00 103 /min [facility] Body temperature 2021-10-24 17:05:00 36.22 Carleen [facility] Respiratory rate 2021-10-24 17:05:00 18 /min [facility] Oxygen saturation in Arterial blood by Pulse oximetry 2021-10-24 17:05:00 95 /min [facility] Body weight 2021-10-22 10:08:00 71.215 kg bed scale [facility] BMI 2021-10-22 10:08:00 28.72 kg/m2 [facility] Body height 2021-10-17 14:00:00 157.5 cm [facility] Systolic blood pressure 2021-10-21 15:36:00 129 mm[Hg] [facility] Diastolic blood pressure 2021-10-21 15:36:00 82 mm[Hg] [facility] Heart rate 2021-10-21 15:36:00 100 /min [facility] Respiratory rate 2021-10-21 15:36:00 20 /min [facility] Oxygen saturation in Arterial blood by Pulse oximetry 2021-10-21 15:36:00 100 /min [facility] Body temperature 2021-10-21 13:07:00 36.83 Carleen [facility] Body height 2021-10-17 14:00:00 157.5 cm [facility] Body weight 2021-10-17 14:00:00 99.791 kg [facility] BMI 2021-10-17 14:00:00 28.72 kg/m2 [facility] BP Systolic 2022-09-25 11:01:00 155 mm[Hg] BP [...] 2014-12-17 14:31:00 Procedures Procedure Date / Time Performed Performing Clinician Source REFERRAL- REQUEST/RESPONSE 2023-08-23 06:01:00 Doctor Unassigned, [place] [facility] DESTRUCT LUMBAR NERVE PERQ APPROACH 2023-02-08 00:00:00 [facility] REFERRAL- REQUEST/RESPONSE 2022-12-25 05:01:00 Doctor Unassigned, [place] [facility] XR KNEE 3 VW RIGHT 2022-12-11 00:44:07 Oren Tovar [facility] NOTICE OF PRIVACY PRACTICES 2022-12-10 23:48:22 Doctor Unassigned, [place] [facility] CONSENT/REFUSAL FOR DIAGNOSIS AND TREATMENT 2022-12-10 23:47:38 Doctor Unassigned, [place] [facility] AUTHORIZATION FOR RELEASE OF PHI 2022-11-22 05:01:00 Doctor Unassigned, [place] [facility] TROPONIN I 2022-11-05 20:53:00 Zelda Olsen [facility] TROPONIN I 2022-11-05 14:07:00 Zelda Olsen [facility] THYROID STIMULATING HORMONE 2022-11-05 14:07:00 Nichole Weldon [facility] EKG-12 LEAD 2022-11-05 13:47:04 Yuniel Mccray [facility] CT CHEST PULMONARY ANGIOGRAM 2022-11-05 09:00:08 Yuniel Mccray [facility] TEST, SERUM 2022-11-05 07:07:00 Tiffani Mccray [facility] TROPONIN I 2022-11-05 07:07:00 Yuniel Mccray [facility] COMP. METABOLIC PANEL ([id number]) 2022-11-05 07:07:00 Yuniel Mccray [facility] CBC WITH DIFF 2022-11-05 07:07:00 Yuniel Mccray [facility] PROTHROMBIN TIME / INR 2022-11-05 07:07:00 Kelvin Mccray [facility] D-DIMER 2022-11-05 07:07:00 Yuniel Mccray [facility] ACTIVATED PARTIAL THRMPLAS ANTONINO 2022-11-05 07:07:00 Yuniel Mccray [facility] N-TERMINAL PRO-BNP 2022-11-05 07:07:00 Yuniel Mccray [facility] XR CHEST 1 VW 2022-11-05 04:39:20 Yuniel Mccray [facility] COVID-19 (ID NOW RAPID TESTING) 2022-11-05 04:33:00 Yuniel Mccray [facility] CONSENT/REFUSAL FOR DIAGNOSIS AND TREATMENT 2022-11-05 03:43:00 Doctor Unassigned, [place] [facility] INTRO ANES AGT PERIPH NRV\\T\\PLEXI PC 2022-08-17 00:00:00 [facility] INTRO AIF PERIPH NRV PLEXI PERQ 2022-08-17 00:00:00 [facility] TRANSTHORACIC ECHO (TTE) LIMITED 2022-07-26 17:38:46 Jamia Benson [facility] EKG-12 LEAD 2022-07-26 04:19:[address] [facility] [address] [facility] 2022-07-26 03:22:22 Ced Hernández [facility] XR CHEST 1 VW 2022-07-26 02:35:21 Glenna [facility] MAGNESIUM 2022-07-26 02:27:00 Jamia Benson [facility] TEST, SERUM 2022-07-26 02:27:00 Glenna [facility] TROPONIN I 2022-07-26 02:27:00 Glenna [facility] COMP. METABOLIC PANEL ([id number]) 2022-07-26 02:27:00 Glenna [facility] CBC WITH DIFF 2022-07-26 02:27:00 [facility] 2022-07-26 02:27:00 Glenna [facility] RAPID INFLUENZA A/B 2022-07-26 02:27:00 Glenna [facility] N-TERMINAL PRO-BNP 2022-07-26 02:27:00 Ced Hernández Un [facility] COVID-19 (ID NOW RAPID TESTING) 2022-07-26 02:27:00 [facility] COVID INTERPRETATION 2022-07-26 02:27:00 Glenna [facility] POCT TEST 2022-07-26 02:25:00 Glenna [facility] CONSENT/REFUSAL FOR DIAGNOSIS AND TREATMENT 2022-07-26 01:46:49 Doctor Unassigned, [place] [facility] INTRO DSTRUC AGT CL NRV PLEXI PC 2022-07-20 00:00:00 [facility] TROPONIN I 2022-06-25 13:36:00 [facility]YRO[facility] STIM[facility] HORMONE 2022-06-25 13:36:00 LucasShakira [facility] TROPONIN I 2022-06-25 10:40:00 [facility] 2022-06-25 08:02:00 Vi Kline [facility] EKG-12 LEAD 2022-06-25 05:02:32 [facility] URINALYSIS 2022-06-25 03:47:00 Edgard [facility]aden [facility] TROPONIN I 2022-06-25 03:35:00 Jaden [facility]iqu[facility] COMP. METABOLIC PANEL ([id number]) 2022-06-25 03:35:00 Jaden iSddiqui [facility] CBC WITH DIFF 2022-06-25 03:35:00 Edgard [facility] PROTHROMBIN TIME / INR 2022-06-25 03:35:00 [facility] D-DIMER 2022-06-25 03:35:[address] [facility] N-TERMINAL PRO-BNP 2022-06-25 03:35:00 Jaden Siddiqui [facility] CONSENT/REFUSAL FOR DIAGNOSIS AND TREATMENT 2022-06-25 00:16:13 Doctor Unassigned, [place] [facility] XR CHEST 1 VW 2022-06-24 14:12:00 Jaden Siddiqui [facility] INTRO ANES AGT PERIPH NRV\\T\\PLEXI PC 2022-06-15 00:00:00 [facility] INTRO AIF PERIPH NRV PLEXI PERQ 2022-06-15 00:00:00 [facility] AUTHORIZATION FOR RELEASE OF PHI 2022-06-08 05:01:00 Doctor Unassigned, [place] [facility] XR CHEST 1 VW 2022-06-01 02:07:14 [facility] KNEE <3 VW RIGHT 2022-06-01 02:07:14 Gabriel aGrcia [facility] XR SHOULDER 2+ VW RIGHT 2022-06-01 02:07:14 Lela Garcia [facility] CT CERVICAL SPINE WO CONTRAST 2022-06-01 02:05:05 Gabriel Garcia [facility] CT HEAD WO CONTRAST 2022-06-01 02:05:05 Gabriel Garcia [facility] CONSENT/REFUSAL FOR DIAGNOSIS AND TREATMENT 2022-06-01 01:15:31 Doctor Unassigned, [place] [facility] INTRO ANES AGT PERIPH NRV\\T\\PLEXI PC 2022-05-11 00:00:00 [facility] INTRO AIF PERIPH NRV PLEXI PERQ 2022-05-11 00:00:00 [facility] INTRO ANES AGT PERIPH NRV\\T\\PLEXI PC 2022-04-06 00:00:00 [facility] INTRO AIF PERIPH NRV PLEXI PERQ 2022-04-06 00:00:00 [facility] ASSIGNMENT OF BENEFITS 2022-03-14 20:14:00 Docto r Unassigned, [place] [facility] CT THORAX WO CONTRAST 2022-02-26 13:20:05 Anaya Kline [facility] BASIC METABOLIC PANEL (NA, K, CL, CO2, GLUCOSE, BUN, CREATININE, CA) 2022-02-26 09:29:00 Anaya Kline [facility] CBC WITH DIFF 2022-02-26 09:29:00 [facility]12 [facility] 2022-02-26 06:20:06 [facility] LIPASE 2022-02-26 03:28:[address] [facility] TROPONIN I 2022-02-26 03:28:[address] [facility] COMP. METABOLIC PANEL ([id number]) 2022-02-26 03:28:00 Sobeida Samson [facility] CBC WITH DIFF 2022-02-26 03:28:00 Sobeida Samson [facility] N-TERMINAL PRO-BNP 2022-02-26 03:28:00 Angelia Samson [facility] XR CHEST 1 VW 2022-02-26 01:52:00 Sobeida Samson [facility] COVID-19 (ID NOW RAPID TESTING) 2022-02-26 01:03:00 Sobeida Samson [facility] CT HEAD WO CONTRAST 2022-02-25 23:59:38 Jose Enrique Samson [facility] CONSENT/REFUSAL FOR DIAGNOSIS AND TREATMENT 2022-02-25 22:55:28 Doctor Unassigned, [place] [facility] EKG-12 LEAD 2022-02-23 06:15:35 Bro Ann [facility] TROPONIN I 2022-02-23 05:20:00 Bro Ann [facility] XR CHEST 2 VW 2022-02-23 03:47:00 Bro Ann [facility] URINALYSIS 2022-02-23 03:26:00 Bro Ann [facility] TROPONIN I 2022-02-23 03:12:00 Bro Ann [facility] COMP. METABOLIC PANEL ([id number]) 2022-02-23 03:12:00 Bro Ann [facility] CBC WITH DIFF 2022-02-23 03:12:00 Bro Ann [facility] RAPID INFLUENZA A/B 2022-02-23 03:12:00 Linda Ann [facility] N-TERMINAL PRO-BNP 2022-02-23 03:12:00 Sue Ann [facility] COVID-19 (ID NOW RAPID TESTING) 2022-02-23 03:12:00 Bro nAn [facility] CONSENT/REFUSAL FOR DIAGNOSIS AND TREATMENT 2022-02-23 02:38:26 Doctor Unassigned, [place] [facility] XR LUMBAR SPINE 2 VW 2022-01-29 20:25:58 Rudy Siddiqui [facility] CONSENT/REFUSAL FOR DIAGNOSIS AND TREATMENT 2022-01-29 18:42:46 Doctor Unassigned, [place] [facility] XR CHEST 1 VW 2022-01-29 13:43:00 Mai Del Rosario [facility] TROPONIN I 2022-01-29 13:34:00 [facility] COMP. METABOLIC PANEL ([id number]) 2022-01-29 13:34:00 Mai Del Rosario [facility] CBC WITH DIFF 2022-01-29 13:34:00 Mai Del Rosario [facility] N-TERMINAL PRO-BNP 2022-01-29 13:34:00 Ricky Del Rosario [facility] AC PANEL 21 + LACTIC ACID 2022-01-29 13:34:00 Mai Del Rosario [facility] CONSENT/REFUSAL FOR DIAGNOSIS AND TREATMENT 2022-01-29 12:47:51 Doctor Unassigned, [place] [facility] INTRO ANES AGT PERIPH NRV\\T\\PLEXI PC 2022-01-05 00:00:00 [facility] INTRO AIF PERIPH NRV PLEXI PERQ 2022-01-05 00:00:00 [facility] XR CHEST 1 VW 2022-01-03 04:29:34 Jacklyn Guillen [facility] CONSENT/REFUSAL FOR DIAGNOSIS AND TREATMENT 2022-01-03 02:30:38 Doctor Unassigned, [place] [facility] MAGNESIUM 2021-12-07 09:01:00 [facility] COMP. METABOLIC PANEL ([id number]) 2021-12-07 09:01:00 Gely Hernandez [facility] CBC WITH DIFF 2021-12-07 09:01:00 David Lazo [facility] N-TERMINAL PRO-BNP 2021-12-07 09:01:00 Gely Hernandez [facility] URINALYSIS 2021-12-06 16:46:00 Tasha ady [facility] URINE CULTURE 2021-12-06 16:46:00 Gely Hernandez [facility] PHOSPHORUS 2021-12-06 10:11:00 Gely Hernandez [facility] MAGNESIUM 2021-12-06 10:11:00 Gely Hernandez [facility] VITAMIN B12, LEVEL 2021-12-06 10:11:00 Gely Hernandez [facility] C-REACTIVE PROTEIN 2021-12-06 10:11:00 Gely Hernandez [facility] TROPONIN I 2021-12-06 10:11:00 Gely Hernandez [facility] FREE T4 2021-12-06 10:11:00 Gely Hernandez [facility] COMP. METABOLIC PANEL ([id number]) 2021-12-06 10:11:00 Tasha ady [facility] SEDIMENTATION RATE 2021-12-06 10:11:00 Gely Hernandez [facility] CBC WITH DIFF 2021-12-06 10:11:00 Gely Hernandez [facility] N-TERMINAL PRO-BNP 2021-12-06 10:11:00 Tasha [facility] VITAMIN D, 25-OH 2021-12-06 10:11:00 [facility] 2021-12-06 10:11:00 Gely Hernandez [facility] PROCALCITONIN 2021-12-06 10:11:00 Gely Hernandez [facility] AC VBG + LACTIC ACID 2021-12-06 10:10:00 Hyacinth Hernandez [facility] COVID-19 (ID NOW RAPID TESTING) 2021-12-06 00:09:00 Oren Tovar [facility] LAB ONLY COVID INTERPRETATION 2021-12-06 00:09:00 Oren Tovar [facility] URIC ACID 2021-12-06 00:07:00 Gely Hernandez [facility] FERRITIN SERUM 2021-12-06 00:07:00 Tasha, Adnan [facility] TROPONIN I 2021-12-06 00:07:00 Oren Tovar [facility] THYROID STIMULATING HORMONE 2021-12-06 00:07:00 Gely Hernandez [facility] COMP. METABOLIC PANEL ([id number]) 2021-12-06 00:07:00 Oren Tovar [facility] LIPID PANEL (74168)(TOTAL CHOLESTEROL, TRIGLYCERIDES, HDL) 2021-12-06 00:07:00 Gely Hernandez [facility] IRON PANEL 2021-12-06 00:07:00 Gely Hernandez [facility] DIFF CONSULT INTERPRETATION 2021-12-06 00:07:00 Tasha [facility] CBC WITH DIFF 2021-12-06 00:07:00 Oren Tovar [facility] GLYCOSYLATED HEMOGLOBIN (A1C) 2021-12-06 00:07:00 Tasha ady [facility] PROTHROMBIN TIME / INR 2021-12-06 00:07:00 Sathya Tovar [facility] ACTIVATED PARTIAL THRMPLAS ANTONINO 2021-12-06 00:07:00 Oren Tovar [facility] N-TERMINAL PRO-BNP 2021-12-06 00:07:00 Oren Tovar [facility] HB ECG ROUTINE & RHYTHM STRIP 2021-12-06 00:05:16 Oren Tovar [facility] XR CHEST 1 VW 2021-12-05 23:50:38 Oren Tovar [facility] ASSIGNMENT OF BENEFITS 2021-12-05 23:47:08 Docto r Unassigned, [place] [facility] NOTICE OF PRIVACY PRACTICES 2021-12-05 22:03:59 Doctor Unassigned, [place] [facility] CONSENT/REFUSAL FOR DIAGNOSIS AND TREATMENT 2021-12-05 22:03:42 Doctor Unassigned, [place] [facility] CT ANGIOGRAM CHEST 2021-12-04 20:47:15 Rivas [facility] LACTIC ACID WHOLE BLOOD 2021-12-04 15:19:00 Rivas [facility] BLOOD CULTURE SCREEN 2021-12-04 10:21:00 Ayesha You [facility] LACTIC ACID WHOLE BLOOD 2021-12-04 09:08:00 Deloris You [facility] BASIC METABOLIC PANEL (NA, K, CL, CO2, GLUCOSE, BUN, CREATININE, CA) 2021-12-04 09:07:00 Wilfrid Pearson [facility] CBC WITH DIFF 2021-12-04 09:07:00 Wilfrid Pearson [facility] EKG-12 LEAD 2021-12-03 21:29:00 [facility] ABG + LACTIC ACID 2021-12-03 21:13:00 Lexi Brush [facility] AMYLASE 2021-12-03 21:12:00 [facility] LIPASE 2021-12-03 21:12:[address] [facility] TROPONIN I 2021-12-03 21:12:[address] [facility] COMP. METABOLIC PANEL ([id number]) 2021-12-03 21:12:00 Maury Brush [facility] CBC WITH DIFF 2021-12-03 21:12:00 Maury Brush U [facility] N-TERMINAL PRO-BNP 2021-12-03 21:12:00 Sonia Brush [facility] PROCALCITONIN 2021-12-03 21:12:00 Abu Atherah, Emran U [facility] XR CHEST 1 VW 2021-12-03 20:52:01 Maury Brush U [facility] URINALYSIS 2021-12-03 20:34:[address] [facility] COVID-19 (ID NOW RAPID TESTING) 2021-12-03 20:34:00 Maury Brush [facility] AUTHORIZATION FOR RELEASE OF PHI 2021-11-23 05:01:00 Doctor Unassigned, [place] [facility] EKG-12 LEAD 2021-11-11 05:25:[address] [facility] BASIC METABOLIC PANEL (NA, K, CL, CO2, GLUCOSE, BUN, CREATININE, CA) 2021-11-10 09:16:00 Wilfrid Pearson [facility] CBC WITH DIFF 2021-11-10 09:16:00 Wilfrid Pearson [facility] LACTIC ACID WHOLE BLOOD 2021-11-10 09:16:00 Sobeida Samson [facility] CT CHEST PULMONARY ANGIOGRAM 2021-11-10 04:49:21 Sobeida Samson [facility] BLOOD CULTURE SCREEN 2021-11-10 03:58:00 [facility] BLOOD CULTURE WORKUP 2021-11-10 03:58:00 [facility] BLOOD CULTURE SCREEN 2021-11-10 02:56:00 [facility] PROTHROMBIN TIME / INR 2021-11-10 01:47:00 Jonathon Samson [facility] D-DIMER 2021-11-10 01:47:[address] [facility] ACTIVATED PARTIAL THRMPLAS ANTONINO 2021-11-10 01:47:00 Sobeida Samson [facility] COVID-19 (ID NOW RAPID TESTING) 2021-11-10 01:47:00 Sobeida Samson [facility] LAB ONLY COVID INTERPRETATION 2021-11-10 01:47:00 Sobeida Samson [facility] AC ABG + LACTIC ACID 2021-11-10 01:45:00 [facility] XR CHEST 1 VW 2021-11-10 01:38:00 Sobeida Samson [facility] COMP. METABOLIC PANEL ([id number]) 2021-11-10 01:32:00 Sobeida Samson [facility] CBC WITH DIFF 2021-11-10 01:32:00 Sobeida Samson [facility] CONSENT/REFUSAL FOR DIAGNOSIS AND TREATMENT 2021-11-10 00:42:41 Doctor Unassigned, [place] [facility] AUTHORIZATION FOR RELEASE OF PHI 2021-11-07 06:01:00 Doctor Unassigned, [place] [facility] EXTERNAL PROVIDER - WOMEN'S SERVICES RADIOLOGY 2021-11-03 06:01:00 Doctor Unassigned, [place] [facility] XR CHEST 1 2021-10-24 18:45:48 Abu [facility] 2021-10-24 18:45:48 Abu Atherah, Emran U [facility] BASIC METABOLIC PANEL (NA, K, CL, CO2, GLUCOSE, BUN, CREATININE, CA) 2021-10-24 12:36:00 Renato [facility] CBC WITHOUT DIFF 2021-10-24 12:36:00 Renato [facility] BASIC METABOLIC PANEL (NA, K, CL, CO2, GLUCOSE, BUN, CREATININE, CA) 2021-10-24 12:36:00 Renato [facility] CBC WITHOUT DIFF 2021-10-24 12:36:00 Benjamin Gross [facility] XR CHEST 1 2021-10-22 15:58:26 Abu Atherlewis, [facility] 1 2021-10-22 15:58:26 Abu Sher, Emran [facility] MAGNESIUM 2021-10-22 10:47:00 Zelda Olsen [facility] BASIC METABOLIC PANEL (NA, K, CL, CO2, GLUCOSE, BUN, CREATININE, CA) 2021-10-22 10:47:00 Zelda Olsen [facility] CBC WITH DIFF 2021-10-22 10:47:00 Zelda [facility] MAGNESIUM 2021-10-22 10:47:00 Zelda Olsen [facility] BASIC METABOLIC PANEL (NA, K, CL, CO2, GLUCOSE, BUN, CREATININE, CA) 2021-10-22 10:47:00 [facility] CBC WITH DIFF 2021-10-22 10:47:00 [facility]W 2021-10-21 22:10:00 Abu MaliAnaya saucedo [facility] XR CHEST 1 VW 2021-10-21 22:10:00 Abu Anaya Sharma [facility] AC PANEL 20 + LACTIC ACID 2021-10-21 20:28:00 Abu Jailene mcclure [facility] AC PANEL 20 + LACTIC ACID 2021-10-21 20:28:00 Abu Jailene mcclure [facility] CYTO BAL 2021-10-21 18:49:[address] [facility] BODY FLUID DIRECT COUNT 2021-10-21 18:47:00 Abu Athera h, [facility] BODY FLUID DIRECT COUNT 2021-10-21 18:47:00 Abu Athera h, [facility] AFB CULTURE 2021-10-21 18:46:[address] [facility] FUNGUS (ROUTINE) CULTURE 2021-10-21 18:46:00 Abu Ather , [facility] MYCOBACTERIUM TUBERCULOSIS COMPLEX PCR 2021-10-21 18:46:00 Abu Ather [facility] RESPIRATORY PANEL BY PCR 2021-10-21 18:46:00 Abu Ather , [facility] AFB CULTURE 2021-10-21 18:46:[address]ina Cuenc[address] [facility] FUNGUS (ROUTINE) CULTURE 2021-10-21 18:46:00 Abu Ather ah, [facility] MYCOBACTERIUM TUBERCULOSIS COMPLEX PCR 2021-10-21 18:46:00 Abu Ather [facility] RESPIRATORY PANEL BY PCR 2021-10-21 18:46:00 Abu Ather ah, [facility] BASIC METABOLIC PANEL (NA, K, CL, CO2, GLUCOSE, BUN, CREATININE, CA) 2021-10-21 18:44:00 Abu Ather [facility] BASIC METABOLIC PANEL (NA, K, CL, CO2, GLUCOSE, BUN, CREATININE, CA) 2021-10-21 18:44:00 Abu MaliAnaya saucedo [facility] CBC WITH DIFF 2021-10-21 18:41:00 Abu Anaya Sharma [facility] PROTHROMBIN TIME / INR 2021-10-21 18:41:00 Abu MaliAnaya saucedo [facility] FIBRINOGEN 2021-10-21 18:41:[address] saucedo Un [facility] CBC WITH DIFF 2021-10-21 18:41:00 Abu AtherAnaya saucedo [facility] PROTHROMBIN TIME / INR 2021-10-21 18:41:00 [facility] FIBRINOGEN 2021-10-21 18:41:[address] saucedo [address] [facility] ANTI-NUCLEAR ANTIBODY SCREEN 2021-10-21 18:41:00 Abu Sher Caseamina [facility] FL TIME OR (NON-REPORTABLE) 2021-10-21 18:18:06 Abu Atherlewis [facility] FL TIME OR (NON-REPORTABLE) 2021-10-21 18:18:06 Abki Sahrma [facility] FLEXIBLE BRONCHOSCOPY 2021-10-21 16:21:00 Abu Malilewis [facility] FLEXIBLE BRONCHOSCOPY 2021-10-21 16:21:00 Abu Sher [facility] XR CHEST 1 VW 2021-10-20 11:13:00 Abu Sher Caseamina [facility] XR CHEST 1 VW 2021-10-20 11:13:00 u Sher Caseamina Rudd [facility] CBC WITH DIFF 2021-10-20 10:30:00 Maggie Morgan [facility] CBC WITH DIFF 2021-10-20 10:30:00 Maggie Morgan [facility] URIC ACID 2021-10-20 10:29:[address] [facility] BASIC METABOLIC PANEL (NA, K, CL, CO2, GLUCOSE, BUN, CREATININE, CA) 2021-10-20 10:29:00 Maggie Morgan [facility] URIC ACID 2021-10-20 10:29:00 u [facility] BASIC METABOLIC PANEL (NA, K, CL, CO2, GLUCOSE, BUN, CREATININE, CA) 2021-10-20 10:29:00 Maggie Morgan [facility] XR CHEST 1 VW 2021-10-19 18:11:14 Abu Sher Anaya U [facility] XR CHEST 1 VW 2021-10-19 18:11:14 Abu Sher Anaya U [facility] CBC WITH DIFF 2021-10-19 09:05:00 Maggie Morgan [facility] CBC WITH DIFF 2021-10-19 09:05:00 Maggie Morgan [facility] MAGNESIUM 2021-10-19 09:04:00 Zelda Olsen [facility] BASIC METABOLIC PANEL (NA, K, CL, CO2, GLUCOSE, BUN, CREATININE, CA) 2021-10-19 09:04:00 Maggie Morgan [facility] MAGNESIUM 2021-10-19 09:04:00 Zelda Olsen [facility] BASIC METABOLIC PANEL (NA, K, CL, CO2, GLUCOSE, BUN, CREATININE, CA) 2021-10-19 09:04:00 Maggie Morgan [facility] POCT GLUCOSE (AUTOMATED) 2021-10-19 02:24:00 Yamini Talavera [facility] POCT GLUCOSE (AUTOMATED) 2021-10-19 02:24:00 Yamini Talavera [facility] COVID-19 (MOLECULAR TESTING NUCLEIC ACID AMPLIFICATION) 2021-10-18 19:48:00 [facility] LAB ONLY COVID INTERPRETATION 2021-10-18 19:48:00 Robert [facility] COVID-19 (MOLECULAR TESTING NUCLEIC ACID AMPLIFICATION) 2021-10-18 19:48:00 Robert [facility] LAB ONLY COVID INTERPRETATION 2021-10-18 19:48:00 [facility] ANGIOTENSIN CONVERTING ENZYME 2021-10-18 19:45:00 Robert [facility] RHEUMATOID FACTOR 2021-10-18 19:45:00 Amadou Putnam [facility] ANCA SCREEN 2021-10-18 19:45:[address] [facility] ANGIOTENSIN CONVERTING ENZYME 2021-10-18 19:45:00 Robert [facility] RHEUMATOID FACTOR 2021-10-18 19:45:00 Amadou Putnam [facility] ANCA SCREEN 2021-10-18 19:45:[address] [facility] XR CHEST 1 VW 2021-10-18 12:37:00 Abu Anaya Sharma U [facility] XR CHEST 1 VW 2021-10-18 12:37:00 Abu Atherah, Emran U [facility] PHOSPHORUS 2021-10-18 09:30:00 [facility] MAGNESIUM 2021-10-18 09:30:00 Rose [facility] BASIC METABOLIC PANEL (NA, K, CL, CO2, GLUCOSE, BUN, CREATININE, CA) 2021-10-18 09:30:00 [facility] CBC WITH DIFF 2021-10-18 09:30:00 Rose [facility] GLYCOSYLATED HEMOGLOBIN (A1C) 2021-10-18 09:30:00 Maggie Morgan [facility] PHOSPHORUS 2021-10-18 09:30:00 [facility] MAGNESIUM 2021-10-18 09:30:00 [facility] BASIC METABOLIC PANEL (NA, K, CL, CO2, GLUCOSE, BUN, CREATININE, CA) 2021-10-18 09:30:00 [facility] CBC WITH DIFF 2021-10-18 09:30:00 Rose [facility] GLYCOSYLATED HEMOGLOBIN (A1C) 2021-10-18 09:30:00 Maggie Morgan [facility] BASIC METABOLIC PANEL (NA, K, CL, CO2, GLUCOSE, BUN, CREATININE, CA) 2021-10-18 00:43:00 Anaya Kline [facility] BASIC METABOLIC PANEL (NA, K, CL, CO2, GLUCOSE, BUN, CREATININE, CA) 2021-10-18 00:43:00 Anaya Kline [facility] N-TERMINAL PRO-BNP 2021-10-17 21:27:00 Samir Galindo [facility] N-TERMINAL PRO-BNP 2021-10-17 21:27:00 Samir Galindo [facility] TRANSTHORACIC ECHO (TTE) COMPLETE 2021-10-17 17:05:00 Bk [facility] TRANSTHORACIC ECHO (TTE) COMPLETE 2021-10-17 17:05:00 Bk [facility] XR CHEST 1 VW 2021-10-17 17:00:50 Samir Galindo [facility] XR CHEST 1 2021-10-17 17:00:50 [facility] 2021-10-17 14:17:12 [facility] 1 2021-10-17 14:17:12 [facility] ABG+COOX+NA+K+GLU+CA2+ 2021-10-17 13:25:00 Rey Parada [facility] ABG+COOX+NA+K+GLU+CA2+ 2021-10-17 13:25:00 Rey Parada [facility] PHOSPHORUS 2021-10-17 10:28:00 Samir [facility] MAGNESIUM 2021-10-17 10:28:00 Samir [facility] BASIC METABOLIC PANEL (NA, K, CL, CO2, GLUCOSE, BUN, CREATININE, CA) 2021-10-17 10:28:00 Samir Galindo [facility] SEDIMENTATION RATE 2021-10-17 10:28:[address] [facility] CBC WITH DIFF 2021-10-17 10:28:00 Samir Galindo [facility] ANTI-NUCLEAR ANTIBODY SCREEN 2021-10-17 10:28:00 ParadaFaraz [facility] ANTI-NUCLEAR ANTIBODY TITER 2021-10-17 10:28:00 ParadaFaraz [facility] ANTI-DOUBLE STRANDED DNA 2021-10-17 10:28:00 Amadou Putnam [facility] HIV 1/2 AG-AB WITH REFLEX 2021-10-17 10:28:00 Abu Anaya Welch [facility] ANTI-NUCLEAR ANTIBODY-PATHOLOGIST INTERPRETATION 2021-10-17 10:28:00 ParadaFaraz [facility] PHOSPHORUS 2021-10-17 10:28:00 Samir [facility] MAGNESIUM 2021-10-17 10:28:00 Josie [facility] BASIC METABOLIC PANEL (NA, K, CL, CO2, GLUCOSE, BUN, CREATININE, CA) 2021-10-17 10:28:00 Josie [facility] SEDIMENTATION RATE 2021-10-17 10:28:[address] [facility] CBC WITH DIFF 2021-10-17 10:28:00 [facility] ANTI-NUCLEAR ANTIBODY SCREEN 2021-10-17 10:28:00 ParadaFaraz [facility] ANTI-NUCLEAR ANTIBODY TITER 2021-10-17 10:28:00 ParadaFaraz [facility] ANTI-DOUBLE STRANDED DNA 2021-10-17 10:28:00 Amadou Putnam [facility] HIV 1/2 AG-AB WITH REFLEX 2021-10-17 10:28:00 Abu Anaya Welch [facility] ANTI-NUCLEAR ANTIBODY-PATHOLOGIST INTERPRETATION 2021-10-17 10:28:00 ParadaFaraz العراقي [facility] BLOOD CULTURE SCREEN 2021-10-16 17:40:00 Yojana Putnam si [facility] BLOOD CULTURE SCREEN 2021-10-16 17:40:00 Yojana Putnam si [facility] XR CHEST 1 VW 2021-10-16 16:56:36 Nicol Bourgeois U [facility] XR CHEST 1 VW 2021-10-16 16:56:36 Nicol Bourgeois U [facility] RESPIRATORY PANEL BY PCR 2021-10-16 14:46:00 Amadou Putnam [facility] RESPIRATORY PANEL BY PCR 2021-10-16 14:46:00 Amadou Putnam [facility] PHOSPHORUS 2021-10-16 10:47:00 Samir [facility] MAGNESIUM 2021-10-16 10:47:00 [facility] BASIC METABOLIC PANEL (NA, K, CL, CO2, GLUCOSE, BUN, CREATININE, CA) 2021-10-16 10:47:00 [facility]FF 2021-10-16 10:47:00 [facility] AC PANEL 20 + LACTIC ACID 2021-10-16 10:47:00 [facility] PHOS[facility]US 2021-10-16 10:47:00 [facility] MAGNESIUM 2021-10-16 10:47:00 [facility] BASIC METABOLIC PANEL (NA, K, CL, CO2, GLUCOSE, BUN, CREATININE, CA) 2021-10-16 10:47:00 Josie [facility] CBC WITH DIFF 2021-10-16 10:47:00 Josei [facility] AC PANEL 20 + LACTIC ACID 2021-10-16 10:47:00 Eri Galindo [facility] C-REACTIVE PROTEIN 2021-10-15 22:38:[address] [facility] TROPONIN I 2021-10-15 22:38:00 [facility] BASIC METABOLIC PANEL (NA, K, CL, CO2, GLUCOSE, BUN, CREATININE, CA) 2021-10-15 22:38:00 [facility] C-REACTIVE PROTEIN 2021-10-15 22:38:[address] [facility] TROPONIN I 2021-10-15 22:38:00 Blanca Talavera [facility] BASIC METABOLIC PANEL (NA, K, CL, CO2, GLUCOSE, BUN, CREATININE, CA) 2021-10-15 22:38:00 Josie [facility] PNEUMOCOCCAL ANTIGEN 2021-10-15 21:49:00 Josie [facility] PNEUMOCOCCAL ANTIGEN 2021-10-15 21:49:00 Josie, [facility] LEGIONELLA URINARY ANTIGEN TST 2021-10-15 21:48:00 Josie, [facility] LEGIONELLA URINARY ANTIGEN TST 2021-10-15 21:48:[address] [facility] [address] ANGIOGRAM CHEST 2021-10-15 19:22:00 u Vi Sharma [facility] CT ANGIOGRAM CHEST 2021-10-15 19:22:00 Vi Kline [facility] TROPONIN I 2021-10-15 17:29:00 Blanca Talavera [facility] RAPID INFLUENZA A/B 2021-10-15 17:29:00 Vito Bourgeois [facility] N-TERMINAL PRO-BNP 2021-10-15 17:29:00 Jose Bourgeois lindsay [facility] PROCALCITONIN 2021-10-15 17:29:00 Nicol Bourgeois U [facility] COVID-19 (MOLECULAR TESTING NUCLEIC ACID AMPLIFICATION) 2021-10-15 17:29:00 Nicol Bourgeois [facility] LAB ONLY COVID INTERPRETATION 2021-10-15 17:29:00 Nicol Bourgeois [facility] TROPONIN I 2021-10-15 17:29:00 Blanca Talavera [facility] RAPID INFLUENZA A/B 2021-10-15 17:29:00 Vito Bourgeois [facility] N-TERMINAL PRO-BNP 2021-10-15 17:29:00 Jose Bourgeois hka [facility] PROCALCITONIN 2021-10-15 17:29:00 Nicol Bourgeois [facility] COVID-19 (MOLECULAR TESTING NUCLEIC ACID AMPLIFICATION) 2021-10-15 17:29:00 Nicol Bourgeois [facility] LAB ONLY COVID INTERPRETATION 2021-10-15 17:29:00 Nicol Bourgeois [facility] COVID-19 (ID NOW RAPID TESTING) 2021-10-15 13:03:00 [facility]PRETATION 2021-10-15 13:03:00 [facility] COVID-19 (ID NOW RAPID TESTING) 2021-10-15 13:03:00 Josie [facility] LAB ONLY COVID INTERPRETATION 2021-10-15 13:03:00 [facility] 1 VW 2021-10-15 09:46:38 Blanca [facility] XR CHEST 1 VW 2021-10-15 09:46:38 Blanca [facility] MAGNESIUM 2021-10-15 08:16:00 Samir [facility] BASIC METABOLIC PANEL (NA, K, CL, CO2, GLUCOSE, BUN, CREATININE, CA) 2021-10-15 08:16:00 [facility] PROCALCITONIN 2021-10-15 08:16:00 Blanca [facility] MAGNESIUM 2021-10-15 08:16:00 [facility] BASIC METABOLIC PANEL (NA, K, CL, CO2, GLUCOSE, BUN, CREATININE, CA) 2021-10-15 08:16:00 Josie [facility] PROCALCITONIN 2021-10-15 08:16:00 Blanca [facility] ABG+COOX+NA+K+GLU+CA2+ 2021-10-15 07:24:00 Chris Galindo [facility] ABG+COOX+NA+K+GLU+CA2+ 2021-10-15 07:24:00 Chris Galindo [facility] TROPONIN I 2021-10-15 07:10:[facility] 2021-10-15 07:10:00 Samir Galindo [facility] TROPONIN I 2021-10-15 07:10:00 [facility] 2021-10-15 07:10:00 Samir Galindo [place] [facility] MRSA / MSSA SCREEN BY PCR, LUKAS 2021-10-15 07:09:00 Josie [facility] MRSA / MSSA SCREEN BY PCR, LUKAS 2021-10-15 07:09:00 Samir Galindo [facility] AUTHORIZATION FOR RELEASE OF PHI 2021-06-09 05:01:00 Doctor Unassigned, [place] [facility] Plan of Care Planned Activity Planned Date Details Comments Source Goal Plan of Care Note [code = 59255-8] Goal Plan of Care Note [code = 84151-1] Goal Plan of Care Note [code = 19601-5] Goal Plan of Care Note [code = 39626-1] Goal Plan of Care Note [code = 61950-7] Goal Plan of Care Note [code = 66699-6] Goal Plan of Care Note [code = 12530-4] Goal Plan of Care Note [code = 54595-1] Goal Plan of Care Note [code = 50636-2] Goal Plan of Care Note [code = 95438-6] Goal Plan of Care Note [code = 12812-8] Goal Plan of Care Note [code = 23382-2] Goal Plan of Care Note [code = 82281-7] Goal Plan of Care Note [code = 15587-7] Goal Plan of Care Note [code = 36804-6] Goal Plan of Care Note [code = 44790-9] Goal Plan of Care Note [code = 33163-7] Goal Plan of Care Note [code = 51268-7] Goal Plan of Care Note [code = 05535-3] Goal Plan of Care Note [code = 05922-0] Goal Plan of Care Note [code = 47546-5] Goal Plan of Care Note [code = 01822-6] Goal Plan of Care Note [code = 25262-4] Goal Plan of Care Note [code = 62865-3] Goal Plan of Care Note [code = 56778-0] Goal Plan of Care Note [code = 67695-5] Goal Plan of Care Note [code = 69471-3] Goal Plan of Care Note [code = 53410-1] Goal Plan of Care Note [code = 56228-0] Goal Plan of Care Note [code = 01288-3] Goal Plan of Care Note [code = 48057-0] Goal Plan of Care Note [code = 76389-8] Goal Plan of Care Note [code = 32034-2] Goal Plan of Care Note [code = 17906-4] Goal Plan of Care Note [code = 43150-5] Goal Plan of Care Note [code = 83384-0] Goal Plan of Care Note [code = 25598-3] Goal Plan of Care Note [code = 48243-2] Goal Plan of Care Note [code = 47695-9] Goal Plan of Care Note [code = 11360-4] Goal Plan of Care Note [code = 82356-8] Goal Plan of Care Note [code = 19408-9] Goal Plan of Care Note [code = 36396-6] Goal Plan of Care Note [code = 19349-0] Goal Plan of Care Note [code = 77419-4] Goal Plan of Care Note [code = 79243-0] Goal Plan of Care Note [code = 78383-4] Goal Plan of Care Note [code = 80474-9] Goal Plan of Care Note [code = 39883-2] Goal Plan of Care Note [code = 72600-0] Goal Plan of Care Note [code = 83192-3] Goal Plan of Care Note [code = 65196-7] Goal Plan of Care Note [code = 35285-1] Goal Plan of Care Note [code = 71212-2] Goal Plan of Care Note [code = 69705-7] Goal Plan of Care Note [code = 58230-1] Goal Plan of Care Note [code = 62242-9] Goal Plan of Care Note [code = 75673-0] Goal Plan of Care Note [code = 48563-7] Goal Plan of Care Note [code = 32814-5] Goal Plan of Care Note [code = 11500-2] Goal Plan of Care Note [code = 31719-5] Goal Plan of Care Note [code = 78140-9] Goal Plan of Care Note [code = 80582-4] Goal Plan of Care Note [code = 43992-6] Goal Plan of Care Note [code = 72074-1] Goal Plan of Care Note [code = 03497-5] Goal Plan of Care Note [code = 79721-1] Goal Plan of Care Note [code = 34275-7] Goal Plan of Care Note [code = 16379-7] Goal Plan of Care Note [code = 49941-7] Goal Plan of Care Note [code = 37124-1] Goal Plan of Care Note [code = 25463-9] Goal Plan of Care Note [code = 54793-5] Goal Plan of Care Note [code = 52451-9] Goal Plan of Care Note [code = 33654-9] Goal Plan of Care Note [code = 32026-1] Goal Plan of Care Note [code = 64720-2] Goal Plan of Care Note [code = 70391-0] Goal Plan of Care Note [code = 02341-3] Goal Plan of Care Note [code = 50094-6] Goal Plan of Care Note [code = 81025-6] Goal Plan of Care Note [code = 65921-2] Goal Plan of Care Note [code = 03188-0] Goal Plan of Care Note [code = 14154-6] Goal Plan of Care Note [code = 57911-6] Goal Plan of Care Note [code = 41685-7] Goal Plan of Care Note [code = 05610-5] Goal Plan of Care Note [code = 45866-4] Goal Plan of Care Note [code = 46885-4] Goal Plan of Care Note [code = 58614-4] Goal Plan of Care Note [code = 47277-8] Goal Plan of Care Note [code = 61362-2] Goal Plan of Care Note [code = 18341-5] Encounters Start Date/Time End Date/Time Encounter Type Admission Type Attending Clinicians Care Facility Care Department Encounter ID Source 2023-08-23 14:14:42 2023-08-23 14:14:42 Outpatient [facility] [id number] Myers 2023-08-23 00:00:00 2023-08-23 00:00:00 Orders Only Doctor Unassigned, [place] [facility] 1.2.840.114 350.1.13.10 4.2.7.2.686 [id number] [facility] 2023-07-30 11:27:18 2023-07-30 11:27:18 Outpatient [facility] [id number] 2023-07-23 13:48:13 2023-07-23 13:48:13 Outpatient [facility] [id number] Myers 2023-07-10 14:42:08 2023-07-10 14:42:08 Outpatient [facility] [address] Myers 2023-07-04 00:00:00 2023-07-04 00:00:00 Outpatient GC_GCBZW_Ka diyala_S [facility] [id number] [facility] 2023-06-26 11:04:41 2023-06-26 11:04:41 Outpatient [facility] [address] Myers 2023-06-12 14:49:18 2023-06-12 14:49:18 Outpatient [facility] [id number] Myers 2023-06-03 21:46:00 2023-06-03 23:33:00 Emergency E ALIRIO, COLLETTE ALIRIO, COLLETTE [facility] [id number] [facility] 2023-05-30 10:27:39 2023-05-30 10:27:39 Outpatient [facility] [id number] 2023-05-04 14:49:00 2023-05-04 16:40:00 Emergency E WONG, MANAN JUDITH, MANAN [facility] [id number] [facility] 2023-05-03 10:11:47 2023-05-03 10:11:47 Outpatient [facility] [id number] Myers 2023-04-30 08:40:38 2023-04-30 08:40:38 Outpatient [facility] 08[address] Myers 2023-04-26 14:46:53 2023-04-26 14:46:53 Outpatient [facility] 08[address]ne Myers 2023-04-24 08:12:09 2023-04-24 08:12:09 Outpatient [facility] [address] Myers 2023-04-14 21:33:00 2023-04-15 05:47:00 Emergency E CLYDE LEGGETT [facility] [id number] [facility] 2023-03-19 10:19:29 2023-03-19 10:19:29 Outpatient [facility] [id number] Myers 2023-02-19 09:15:24 2023-02-19 09:15:24 Outpatient [facility] [id number] Myers 2023-02-08 07:25:00 2023-02-08 11:19:00 Outpatient LINDSEY PADILLA [facility] WWACU [id number] [facility] 2022-12-25 15:45:30 2022-12-25 15:45:30 Outpatient [facility] [address] Myers 2022-12-25 00:00:00 2022-12-25 00:00:00 Orders Only Doctor Unassigned, [place] [facility] 1.2.840.114 350.1.13.10 4.2.7.2.686 [id number] [facility] 2022-12-21 13:08:22 2022-12-21 13:08:22 Outpatient [facility] [address] Myers 2022-12-19 09:43:00 2022-12-19 09:43:00 Outpatient [facility] [address] Myers 2022-12-11 20:12:00 2022-12-11 22:35:00 Emergency E LÁZARO MUNIZ [facility] [id number] [facility] 2022-12-10 19:03:00 2022-12-10 20:52:00 Emergency X OREN TOVAR [facility] ERT [id number] [facility] 2022-12-10 19:03:00 2022-12-10 20:52:00 Emergency Oren Tovar [facility] 1.840.114 350.1.13.10 4.2.7.2.686 [id number] [facility] 2022-11-23 09:56:39 2022-11-23 09:56:39 Outpatient [facility] [address] F Louis 2022-11-22 00:00:00 2022-11-22 00:00:00 Orders Only Doctor Unassigned, [place] [facility] 1..840.114 350.1.13.10 4.2.7.2.686 [id number] [facility] 2022-11-21 08:34:36 2022-11-21 08:34:36 Outpatient [facility] 1 [address]ne F Louis 2022-11-04 21:58:00 2022-11-05 17:13:00 Outpatient X [facility] [id number] [facility] 2022-11-04 21:58:00 2022-11-05 17:13:00 Emergency Yuniel Mccray Ali [facility] ([facility]) 1.2840.114 350.1.13.10 4.2.7.2.686 [id number] [facility] 2022-10-02 10:16:38 2022-10-02 10:16:38 Outpatient [facility] [id number] F Louis 2022-09-25 10:41:57 2022-09-25 10:41:57 Outpatient [facility] [id number] Niurka Louis 2022-09-25 00:00:00 2022-09-25 00:00:00 Outpatient Visit [id number] 2022-09-22 10:48:03 2022-09-22 10:48:03 Outpatient [facility] [id number] Myers 2022-09-21 15:48:42 2022-09-21 15:48:42 Outpatient [facility] [id number] Myers 2022-09-21 00:00:00 2022-09-21 00:00:00 Outpatient Visit [id number] 8fcacd 2022-08-17 10:58:00 2022-08-17 13:20:00 Outpatient LINDSEY PADILLA [facility] [id number] [facility] 2022-08-11 11:20:53 2022-08-11 11:20:53 Outpatient [facility] [id number] 2022-08-11 00:00:00 2022-08-11 00:00:00 Outpatient Visit [id number] -[id number] 2022-07-25 19:54:00 2022-07-27 14:01:00 Outpatient X MICHAEL [facility] [id number] [facility] 2022-07-25 19:54:00 2022-07-27 14:01:00 Emergency Umm Manzanares Yasin [facility] ([facility]) 1.2.840.114 350.1.13.10 4.2.7.2.686 [id number] [facility] 2022-07-20 13:25:00 2022-07-20 16:55:00 Outpatient LINDSEY PADILLA [facility] [id number] [facility] 2022-06-24 19:56:00 2022-06-26 05:00:00 Inpatient X ANAYA KLINE [facility] ERIN [id number] [facility] 2022-06-24 19:56:00 2022-06-26 05:00:00 Hospital Encounter Jaden Siddiqui Emran [facility] ([facility]) 1.840.114 350.1.13.10 4.2.7.2.686 [id number] [facility] 2022-06-23 18:38:00 2022-06-23 23:25:00 Emergency E LORAINE MELO [facility] [id number] [facility] 2022-06-21 23:43:00 2022-06-22 10:50:00 Outpatient E CHRISTIAN VITAL [facility] TELE [id number] [facility] 2022-06-15 11:12:00 2022-06-15 15:38:00 Outpatient LINDSEY PADILLA [facility]U [id number] [facility] 2022-06-08 00:00:00 2022-06-08 00:00:00 Orders Only Doctor Unassigned, [place] [facility] 1.840.114 350.1.13.10 4.2.7.2.686 [id number] [facility] 2022-05-31 20:15:00 2022-05-31 22:49:00 Emergency X GABRIEL GARCIA [facility] ERT [id number] [facility] 2022-05-31 20:15:00 2022-05-31 22:49:00 Emergency Gabriel Garcia J [facility] 1.840.114 350.1.13.10 4.2.7.2.686 [id number] [facility] 2022-05-11 11:42:00 2022-05-11 23:59:00 Outpatient LINDSEY PADILLA [facility] [id number] [facility] 2022-04-17 20:00:00 2022-04-17 20:00:00 Outpatient R SANTINO, STRAHIL ATANASOV, STRAHIL [facility] [id number] [facility] 2022-04-15 08:00:00 2022-04-15 08:00:00 Outpatient R [facility] [id number] [facility] 2022-04-15 00:00:00 2022-04-15 00:00:00 Outpatient Visit [id number] 1483-08-04 12:15:00 2022-04-06 16:00:00 Outpatient LINDSEY PADILLA [facility] [id number] [facility] 2022-03-15 20:00:00 2022-03-15 22:30:00 Telesales Advisor Visit 1, [facility] Sleep Lab Bed Marlys Madisonl Poppy [facility] 1.2.840.114 350.1.13.10 4.2.7.2.686 [id number] [facility] 2022-03-15 20:00:00 2022-03-15 20:00:00 Outpatient R ATANASKATINA, STRAHIL ATANASOV, STRAHIL [facility] [id number] [facility] 2022-03-14 15:30:00 2022-03-14 15:45:00 Laboratory Only Only, [facility] Test Omega Madisonhil T [facility] 1.2.840.114 350.1.13.10 4.2.7.2.686 [id number] [facility] 2022-03-14 15:30:00 2022-03-14 15:30:00 Outpatient R ATANASOV, STRAHIL ATANASOV, STRAHIL [facility] [id number] [facility] 2022-03-14 00:00:00 2022-03-14 00:00:00 Orders Only Doctor Unassigned, [place] [facility] 1..840.114 350.1.13.10 4.2.7.2.686 [id number] [facility] 2022-02-25 18:18:00 2022-02-26 12:30:00 [facility] [id number] [facility] 2022-02-25 18:18:00 2022-02-26 12:30:00 [facility] 1..840.114 350.1.13.10 4.2.7.2.686 [id number] [facility] 2022-02-22 21:42:00 2022-02-23 01:19:00 Emergency X JOSEFINA [facility]PER [facility] ERT [id number] [facility] 2022-02-22 21:42:00 2022-02-23 01:19:00 Emergency Bro Ann [facility] 1..840.114 350.1.13.10 4.2.7.2.686 [id number] [facility] 2022-01-29 14:38:00 2022-01-29 16:55:00 Emergency X SIDDIQUIJADEN MARKS [facility] ERT [id number] [facility] 2022-01-29 14:38:00 2022-01-29 16:55:00 Emergency Siddiqui, [facility] ([facility]) 1..840.114 350.1.13.10 4.2.7.2.686 [id number] [facility] 2022-01-29 07:51:00 2022-01-29 10:37:00 Emergency X MAI DEL ROSARIO [facility] ERT [id number] [facility] 2022-01-29 07:51:00 2022-01-29 10:37:00 Emergency Mai Del Rosario [facility] 1.2.840.114 350.1.13.10 4.2.7.2.686 [id number] [facility] 2022-01-05 10:46:00 2022-01-05 14:42:00 Outpatient C BHUMIKA CAMERONIR [facility] [id number] [facility] 2022-01-02 21:43:00 2022-01-03 00:14:00 Emergency X JACKLYN GUILLEN [facility] ERT [id number] [facility] 2022-01-02 21:43:00 2022-01-03 00:14:00 Emergency Jacklyn Guillen [facility] 1.2.840.114 350.1.13.10 4.2.7.2.686 [id number] [facility] 2021-12-08 00:00:00 2021-12-08 00:00:00 Transition of Care Marjan [facility] 1.2.840.114 350.1.13.10 4.2.7.2.686 [id number] [facility] 2021-12-05 17:33:00 2021-12-07 12:01:00 Inpatient X GELY HERNANDEZ [facility] ERIN [id number] [facility] 2021-12-05 17:33:00 2021-12-07 12:01:00 Hospital Encounter Oren Tovar Wakili S Lakhani, Adnan [facility] 1.2.840.114 350.1.13.10 4.2.7.2.686 [id number] [facility] 2021-12-03 12:50:00 2021-12-05 05:42:00 Outpatient X SHAMIKACELESTINA [facility] [id number] [facility] 2021-12-03 12:50:00 2021-12-05 05:42:00 Hospital En[facility] 1.2.840.114 350.1.13.10 4.2.7.2.686 [id number] [facility] 2021-11-23 00:00:00 2021-11-23 00:00:00 Orders Only Doctor Unassigned, [place] [facility] 1.20.114 350.1.13.10 4.2.7.2.686 [id number] [facility] 2021-11-09 18:47:00 2021-11-11 17:31:00 Outpatient X [facility] [id number] [facility] 2021-11-09 18:47:00 2021-11-11 17:31:00 Emergency Sobeida Samson [facility] ([facility]) 1.2.840.114 350.1.13.10 4.2.7.2.686 [id number] [facility] 2021-11-07 00:00:00 2021-11-07 00:00:00 Orders Only Doctor Unassigned, [place] [facility] 1.2840.114 350.1.13.10 4.2.7.2.686 [id number] [facility] 2021-11-03 00:00:00 2021-11-03 00:00:00 Orders Only Doctor Unassigned, [place] [facility] 1.2840.114 350.1.13.10 4.2.7.2.686 [id number] [facility] 2021-10-25 00:00:00 2021-10-25 00:00:00 Transition of Care [place] 1.2.840.114 350.1.13.10 4.2.7.2.686 [id number] [facility] 2021-10-15 00:23:00 2021-10-24 17:53:00 Inpatient U FLASH [facility] [id number] [facility] 2021-10-15 00:23:00 2021-10-24 17:53:00 Hospital Encounter Blanca Talavera, Fraaz Guadarrama [facility] ([facility]) 1.2.840.114 350.1.13.10 4.2.7.2.686 [id number] [facility] 2021-10-21 10:00:00 2021-10-21 10:45:00 Surgery Abu Sher, Anaya [facility] ([facility]) 1.2.840.114 350.1.13.10 4.2.7.2.686 [id number] [facility] 2021-06-09 00:00:00 2021-06-09 00:00:00 Orders Only Doctor Unassigned, [place] [facility] 1.2.840.114 350.1.13.10 4.2.7.2.686 [id number] [facility] 2012-11-25 00:00:00 2012-11-25 16:37:20 Outpatient GABRIEL SHAIKH BRENT [facility] [id number] [facility] 2012-04-08 00:00:00 2012-04-08 16:51:12 Outpatient [facility] [id number] [facility] 2011-04-13 00:00:00 2011-04-13 10:43:11 Outpatient [facility] [id number] [facility] 2010-09-15 00:00:00 2010-09-15 11:23:44 Outpatient [facility] [id number] [facility] 2010-03-11 00:00:00 2010-03-11 16:25:54 Outpatient [facility] [id number] [facility] 2009-09-13 00:00:00 2009-09-13 16:22:48 Outpatient [facility] [id number] [facility] 2009-08-31 00:00:00 2009-08-31 09:36:31 Outpatient [facility] [id number] [facility] Results Test Description Test Time Test Comments Results Resul t Comments Source CT HEAD W/O CONTRAST *WW* 2023-06-03 [facility]:07[facility] 1970 Sex: F EX AMINATION:CT HEAD W/O CONTRAST *WW*CLINICAL INDICATION:Female, 52 years old with Headache;Flu like symptomsTECHNIQUE: Axial CT images from the skull base to the vertex without intravenous contrast. Coronal and sagittal reformatted images were created from the data set.One or more of the following dose reduction techniques were used: Automated exposure control, adjustment of the mA and/or kV according to patient size, and/or iterative reconstruction. COMPARISON: NoneFINDINGS:Intracra nial: No evidence of acute infarction, intracranial hemorrhage, mass or mass effect, or abnormal extra-axial fluid collection. The ventricles are normal in size, shape and position.Vascular: The larger dural venous sinuses are grossly normal. No significant atherosclerotic plaque.Sinuses: The visualized paranasal sinuses and mastoid air cells are predominantly clear. Bones: The osseous structures and orbits have no significant abnormalities. Soft tissue: No significant soft tissue abnormalities. IMPRESSION:No acute intracranial abnormality.Karyneri boni signed by: Zuleima Naranjo MD 06/03/2023 11:07 PM CDT U/S GALLBLADDER*WW*2023-04-15 05:22:28 [facility] 1970 Sex: FDICTATION LOCATION: [id number]: Female, 52 years of age with abdominal [...] with appropriate hepatopedal flow.RIGHT KIDNEY: Unremarkable. OTHER: There is no ascites.IMPRESSION: 1. Heterogeneous echogenic material within gallbladder lumen,most likely tumefactive sludge. No obvious gallstones.2. Mild gallbladder wall thickening.3. No biliary dilatation. Electronically signed by: Desiree Rodrigues MD 04/15/2023 5:22 AM CDT ABDOMEN AND PELVIS WITH CONTRAST*WW*2023-04-15 02:03:27 [facility] : 1970 Sex: FEXAM: CT ABDOMEN PELVIS WITH IV CONTRASTLOCATION: [id number]: Abdominal painTECHNIQUE: Serial axial CT images wereobtained from above the diaphragm to the proximal femurs with the administration of intravenous contrast. Oral contrast was not administeredPhase(s): Portal venousReformats: Standard coronal and sagittal reformats provided.The exam was performed according to our departmental dose- optimization program, which includes automated exposure control, adjustment of the mA and/or kV according to patient size and/or use of iterative reconstruction technique.Unless otherwise specified, incidental findingsdo not require dedicated imaging follow-up.COMPARISON: None available.FINDINGS:LUNG BASES: Minimal consolidation and groundglass opacities noted in the dependent right lower lobe.LIVER: Elevated right hemidiaphragm containing a portion of the liver. Incidental large hepatic cleft noted at segment 7. No focal lesions.BILIARY: Mild gallbladder wall thickening and wall enhancement. Nondistended withno calcified gallstones. No intrahepatic or extrahepatic biliary [...] is normal.VASCULAR: The abdominal aorta is nonaneurysmal. Nosignificant atherosclerosis. The main portal vein is patent.LYMPH NODES: No enlarged lymph nodes.MESENTERY: No free air or loculated fluid collections.SOFT TISSUES: Unremarkable.BONES: No acute osseous findings.IMPRESSION:Mild gallbladder wall thickening and wall enhancement, which is a nonspecificfinding given lack of calcified gallstones or gallbladder distention. Differential includes both early acute and chronic cholecystitis.Minimal consolidation and groundglass opacities in the right lower lobe, representing prominent atelectasis or sequelae of aspiration with or without developing infection.Electronically signed by: Siddhartha Jackson DO 04/15/2023 2:03 AM CDT 2001HSJURINALYSIS WITH MICRO *WW*2023-04-15 01:39:00* Test Item Value Reference Range Interpretation Comme nts COLOR (test code = COLU) YELLOW YELLOW CLARITY (test code = CLA) CLOUDY CLEAR A GLUCOSE UR (test code = UA GLUCOSE) NEGATIVE NEGATIVE BILI UR (test code = BILE) NEGATIVE NEGATIVE KETONES UR (test code = MELLY) TRACE NEGATIVE A SP GRAVITY (test code = SPGR) 1.031 1.005-1.030 H PH UR (test code = PH) 6.0 4.5-8.0 PROTEIN UR (test code = PU) 1+ NEGATIVE A UROBIL UR (test code = UROQ) 1.0 EU/dL 0.2-1.0 NITRITE UR (test code = NITRITE) NEGATIVE NEGATIVE BLOOD UR (test code = UA BLOOD) [...] code = USPERM) /HPF NONE URINE MONOCLONAL *WW*2023-04-15 01:22:00* Test Item Value Reference Range Interpretation Comme nts PREG UR (test code = PGU) NEGATIVE NEGATIVE BRAIN NATRIURETIC PEPTIDE *WW*2023-04-15 00:35:00* Test Item Value Reference Range Interpretation Comme nts BNP (test code = A74) 16 pg/mL See_Comment [Automated messa ge] The system which generated this result transmitted reference range: <=100. The reference range was not used to interpret this result as normal/abnormal. PRO TIME AND PTT *WW*2023-04-15 00:29:00* Test Item Value Reference Range Interpretation Comme nts PT (test code = TT) 11.9 s 9.8-13.6 INR (test code = INR) 1.0 INRH (test code = INRH) SUGGESTED THERAPEUTIC RANGE FOR INR: 2.5 - 3.5 For Patients with Prosthetic Valves or Patients with recurrent Thromboembolic Events 2.0 - 3.0 For Most Other Applications PTT (test code = PTT) 26.5 s 20.2-38.0 PTTH (test code = PTTH) To monitor the effectiveness of heparin, we offer the Anti-Xa (Heparin Assay). It can be used for either unfractionated or LMW Heparin. Order Code is ANTI-XA COMPREHENSIVE METABOLIC ENRIQUE *WW*2023-04-15 00:26:00* Test Item Value Reference Range Interpretation Comme nts GLUCOSE (test code = 06D) 107 mg/dL 75-100 H SODIUM (test code = 01A) 142 mmol/L 136-145 POTASSIUM (test code = 01B) 3.0 mmol/L 3.6-5.1 L CHLORIDE (test code = 04A) 106 mmol/L 98-107 CO2 (test code = 02A) 28 mmol/L 20-31 ANION GAP (test code = ANG) 11.0 mmol/L BUN (test code = 05D) 12 mg/dL 9-23 CREATININE (test code = 03E) 1.3 mg/dL 0.6-1.0 H GFR (test code = GFR) 47 mL/min/1.73m\\S\\2 See_Comment L [Automated message] The system which generated this result transmitted reference range: >=90. The reference range was not used to interpret this result as normal/abnormal. GFR (test code = GFRAA) 55 mL/min/1.73m\\S\\2 See_Comment L [Automated message] The system which generated this result transmitted reference range: >=90. The reference range was not used to interpret this result as normal/abnormal. EGFR (test code = EGFR) eGFR BY CKD-EPI CALCULATION IS NOT RECOMMENDED FOR PATIENTS UNDER 18 YEARS OF AGE. BUN/CREA (test code = BCR) 9 12-20 L CALCIUM (test code = 09D) 9.2 mg/dL 8.3-10.6 BILI TOTAL (test code = 11A) 0.2 mg/dL 0.2-1.0 PROTEIN (test code = 07D) 6.9 g/dL 5.7-8.2 ALBUMIN (test code = 08D) 4.5 g/dL 3.2-4.8 GLOBULIN (test code = GLB) 2.4 g/dL 1.5-3.8 ALB/GLOB (test code = AGRR) 1.9 1.0-2.6 ALK PHOS (test code = 35A) 117 IU/L 46-116 H AST (test code = 30A) 19 IU/L See_Comment [Automated message] The system which generated this result transmitted reference range: <=33. The reference range was not used to interpret this result as normal/abnormal. ALT (test code = 31A) 33 IU/L 10-49 LIPASE SERUM 2023-04-15 00:26:00* Test Item Value Reference Range Interpretation Comme nts LIPASE (test code = 60A) 36 IU/L 12-53 TROPONIN I *[facility]2023-04-15 00:25:00* Test Item Value Reference Range Interpretation Comme nts TROPONIN I (test code = A84) 13.47 pg/mL 0.00-45.20 CBC (INCLUDES AUTOMATED DIFFERENTIAL)*[id number] 00:18:00* Test Item Value Reference Range Interpretation Comme nts WBC (test code = WBC) 5.0 10\\S\\3/uL [...] NO NO RBC MORPH (test code = WRBCMOR) NORMAL C-ARM<1 HR W IMAGES*WW*2023-02-08 11:26:14 [facility] : 1970 Sex: FFluoroscopyLocation Code: [id number] HISTORY: Back painComments: Fluoroscopy was provided during lumbar RFA. Approximately fluoroscopy time was 9.1 seconds. 2 fluoroscopic spot images were taken.IMPRESSION: Fluoroscopy services provided. Please see operative report for full details.Electronically signed by: Iglesia Garvey MD 02/08/2023 11:26 AM CDT + LH [id number] 07:50:33* Test Item Value Reference Range Interpretation Comme nts FOLLICLE STIM HORMONE (test code = 2700) 42.3 IU/L SEE BELOW EXPEC BRITNEY VALUES FOR FSH FOR FEMALES >17 YEARS FOLLICULAR 3.5-12.5 IU/L MID-CYCLE PEAK 4.7-21.5 IU/L LUTEAL PHASE 1.7-7.7 IU/L POSTMENOPAUSAL 25.8-134.8 IU/L LUTEINIZING HORMONE (test code = 2776) 25.7 IU/L SEE BELOW EXPEC BRITNEY VALUES FOR LH FOR FEMALES >17 YEARS MALES FEMALES >=18 YEARS 1.8-8.6 IU/L FOLLICULAR 2.4-12.6 IU/L MID-CYCLE PEAK 14.0-95.6 IU/L LUTEAL PHASE 1.0-11.4 IU/L POSTMENOPAUSAL 7.7-58.5 IU/L [facility] has important pathology staff changes effective 11/01/2022. New pathology staff will provide uninterrupted, excellent patient care and clinical consultation. See URL: [email or web address] ([email or web address]. UNLESS OTHERWISE INDICATED, ALL TESTING PERFORMED AT [facility] [address] [place] [address] ENERGY TRADER: BO MILLER M.D. CLIA NUMBER [id number] [facility] [place]. [id number] XR KNEE RIGHT 1 OR 2 VIEW *WW*2022-12-11 21:28:07 [facility] : 1970 Sex: FExam: Right knee 2 views.CLINICAL HISTORY: Pain in lower limb.LOCATION: D4.FINDINGS: [...] Alexey Ott MD 12/11/2022 9:28 PM CDT [id number] STIMULATING [id number] 17:34:00* Test Item Value Reference Range Interpretation Comme nts TSH (test code = 1789547904) 1.00 See_Comment Biotin has been reported to cause a negative bias, interpret results relative to patient's use of biotin. [Automated message] The system which generated this result transmitted reference range: 0.45 - 4.70 mIU/L. The reference range was not used to interpret this result as normal/abnormal. Lab Interpretation (test code = 98697-2) Normal [facility]TR[facility] [id number] 14:56:35* Test Item Value Reference Range Interpretation Comme nts TROPONIN I (test code = 6597323730) 0.009 ng/mL <=0.034 LUCILLE (test code = LUCILLE) Reference (Normal) [...] patient's use of biotin. Lab Interpretation (test code = 33714-4) Normal [facility] HospitalTR[facility] [id number] 07:53:48* Test Item Value Reference Range Interpretation Comme nts TROPONIN I (test code = 4818977460) 0.004 ng/mL <=0.034 LUCILLE (test code = LUCILLE) Reference (Normal) [...] patient's use of biotin. Lab Interpretation (test code = 66881-2) Normal [facility] HospitalN-TERMINAL [id number] 07:53:48* Test Item Value Reference Range Interpretation Comme nts NT-proBNP (test code = 0697403619) 61 pg/mL <=125 LUCILLE (test code = LUCILLE) Biotin has been reported to cause a negative bias, interpret results relative to patient's use of biotin. Lab Interpretation (test code = 54652-8) Normal [facility] HospitalCOMP. METABOLIC PANEL (28738)2022-11-05 07:41:51* Test Item Value Reference Range Interpretation Comme nts NA (test code = 1095325548) 139 mmol/L 135-145 K (test code = 6900297761) 4.4 mmol/L 3.5-5.0 CL (test code = 2489404659) 106 mmol/L 98-108 CO2 TOTAL (test code = 0432723959) 26 mmol/L 23-31 AGAP (test code = 4255901199) 7 2-16 BUN (test code = 7416531500) 9 mg/dL 7-23 GLUCOSE (test code = 6334063568) 100 mg/dL 70-110 CREATININE (test code = 5082620000) 0.86 mg/dL 0.50-1.04 TOTAL BILI (test code = 0906432316) 0.4 mg/dL 0.1-1.1 CALCIUM (test code = 5455662429) 9.1 mg/dL 8.6-10.6 T PROTEIN (test code = 2964650162) 6.8 g/dL 6.3-8.2 ALBUMIN (test code = 0989975701) 4.1 g/dL 3.5-5.0 ALK PHOS (test code = 1507558220) 74 U/L 34-122 ALTv (test code = 1742-6) 21 U/L 5-35 AST(SGOT) (test code = 2880874132) 23 U/L 13-40 eGFR (test code = 6551830104) 69.6 mL/min/1.73m2 LUCILLE (test code = LUCILLE) Association [...] or urine or abnormalities in imaging tests). [facility] HospitalPREGNANCY TEST, [id number] 07:39:46* Test Item Value Reference Range Interpretation Com[facility] PREG SERUM (test code = 9359316790) Negative LUCILLE (test code = LUCILLE) Less than 10 IU/L. ?If low titer or ectopic is suspected, resubmit specimen in 48-72 hours. [facility] HospitalACTIVATED PARTIAL THRMPLAS [id number] 07:39:31* Test Item Value Reference Range Interpretation Comme [facility] APTT Patient (test code = 3173-2) 27 See_Comment [Automated NTRglobal] The system which generated this result transmitted reference range: 26 - 36 Seconds. The reference range was not used to interpret this result as normal/abnormal. Lab Interpretation (test code = 15950-5) Normal [facility] HospitalPROTHROMBIN TIME / [id number] 07:39:31* Test Item Value Reference Range Interpretation Comme [facility] PROTIME PATIENT (test code = 5964-2) 13.4 See_Comment H [Automated NTRglobal] The system which generated this result transmitted reference range: 10.1 - 12.6 Seconds. The reference range was not used to interpret this result as normal/abnormal. INR (test code = 6301-6) 1.2 Normal INR <1.1; Warfarin Therapeutic range 2.0 to 3.0 or 2.5 to 3.5, depending upon the indications. Lab Interpretation (test code = 99285-8) Abnormal [facility] HospitalD-[id number] 07:39:31* Test Item Value Reference Range Interpretation Comments D-DIMER (test code = 1933603644) 1.06 See_Comment H [Automated message] The system which generated this result transmitted reference range: <0.50 ?g/mL (FEU). The reference range was not used to interpret this result as normal/abnormal. LUCILLE (test code = LUCILLE) This test may be used in conjunction with a clinical pretest [...] context, in forming a diagnosis. Lab Interpretation (test code = 83788-8) Abnormal [facility] WITH [id number] 07:28:32* Test Item Value Reference Range Interpretation Comme nts WBC (test code = 6690-2) 6.53 See_Comment [Automated NTRglobal] The system which generated this result transmitted reference range: 4.30 - 11.10 10*3/?L. The reference range was not used to interpret this result as normal/abnormal. RBC (test code = 789-8) 4.97 See_Comment [Automated [employer]] The system which generated this result transmitted reference range: 3.93 - 5.25 10*6/?L. The reference range was not used to interpret this result as normal/abnormal. HGB (test code = 718-7) 13.0 g/dL 11.6-15.0 HCT (test code = 4544-3) 40.2 % 35.7-45.2 MCV (test code = 787-2) 80.9 fL 80.6-95.5 MCH (test code = 785-6) 26.2 pg 25.9-32.8 MCHC (test code = 786-4) 32.3 g/dL 31.6-35.1 RDW-SD (test code = 87597-0) 46.0 fL 39.0-49.9 RDW-CV (test code = 788-0) 15.6 % 12.0-15.5 H PLT (test code = 777-3) 272 See_Comment [Automated messa ge] The system which generated this result transmitted reference range: 166 - 358 10*3/?L. The reference range was not used to interpret this result as normal/abnormal. MPV (test code = 42443-5) 11.5 fL 9.5-12.9 NRBC/100 WBC (test code = 9649518211) 0.0 See_Comment [Automated [employer] ssage] The system which generated this result transmitted reference range: 0.0 - 10.0 /100 WBCs. The reference range was not used to interpret this result as normal/abnormal. NRBC x10^3 (test code = 5735170592) See_Comment [Automated messa ge] The system which generated this result transmitted reference range: 10*3/?L. The reference range was not used to interpret this result as normal/abnormal. GRAN MAT (NEUT) % (test code = 770-8) 58.2 % IMM GRAN % (test code = 6987908740) 0.20 % LYMPH % (test code = 736-9) 31.1 % MONO % (test code = 5905-5) 9.3 % EOS % (test code = 713-8) 0.3 % BASO % (test code = 706-2) 0.9 % GRAN MAT x10^3(ANC) (test code = 9953765939) 3.80 10*3/uL 1.88-7.09 IMM GRAN x10^3 (test code = 5982481758) 0.00-0.06 LYMPH x10^3 (test code = 731-0) 2.03 10*3/uL 1.32-3.29 MONO x10^3 (test code = 742-7) 0.61 10*3/uL 0.33-0.92 EOS x10^3 (test code = 711-2) 0.03-0.39 L BASO x10^3 (test code = 704-7) 0.06 10*3/uL 0.01-0.07 Lab Interpretation (test code = 61182-0) Abnormal [facility] HospitalALBUMIN/CREATININE RATIO, URINE, RANDOM 2022-11-03 05:51:41* Test Item Value Reference Range Interpretation Comme nts CREATININE, URINE, CONC. (test code = 2072) 356.1 MG/DL NOT ESTAB ALBUMIN, URINE, RANDOM (test code = 91459) 2.0 MG/DL NOT ESTAB CALC ALBUMIN/CREAT, RND (test code = 76178) 6 MG/G <30 Note: Albumin/Cr eatinine ratio reference interval reflects ADA and NKF guidelines. [facility] has important pathology staff changes effective 11/01/2022. New pathology staff will provide uninterrupted, excellent patient care and clinical consultation. See URL: [email or web address]. UNLESS OTHERWISE INDICATED, ALL TESTING PERFORMED AT [facility] [address] [place] [address] ENERGY TRADER: SADIQ VANEGAS M.D. CLIA NUMBER [id number] [facility] [place]. [id number] 05:26:24* Test Item Value Reference Range Interpretation Comme nts NT-proBNP (test code = 89085) <50 PG/ML SEE BELOW If NT-ProBNP is less than 300 PG/ML, heart failure is unlikely for allages. Age.................Heart Failure Likely <50 Years...........>=450 PG/ML 50-75 Years.........>=900 PG/ML > 75 Years..........>=1800 PG/ML Methodology: [employer] Immunoassay COMPREHENSIVE METABOLIC [id number] 06:45:27* Test Item Value Reference Range Interpretation Comme nts GLUCOSE (test code = 2217) 126 MG/DL 70-99 H BUN (test code = 2208) 12 MG/DL 6-20 CREATININE (test code = 2214) 1.24 MG/DL 0.60-1.30 eGFR (2020 CKD-EPI) (test code = 48391) 53 ML/MIN/1.73 >60 L The NKF-ASN Taskforce recommends use of Cystatin C to confirm eGFR inadults at risk for CKD. [facility] offers eGFR with Cystatin C-Creatinineusing the 2020 CKD-EPI eGFR_creat-cystat equation (order code 3057) toincrease the accuracy of estimated GFR. For more information, contactyour senior account executive or see announcement [email or web address] CALC BUN/CREAT (test code = 2234) 10 RATIO 6-28 SODIUM (test code = 2230) 144 MEQ/L 133-146 POTASSIUM (test code = 2227) 4.0 MEQ/L 3.5-5.4 CHLORIDE (test code = 2214) 110 MEQ/L 95-107 H CARBON DIOXIDE (test code = 2205) 18 MEQ/L 19-31 L CALCIUM (test code = 2208) 9.3 MG/DL 8.5-10.5 PROTEIN, TOTAL (test code = 2228) 6.7 G/DL 6.1-8.3 ALBUMIN (test code = 2200) 4.3 G/DL 3.5-5.2 CALC GLOBULIN (test code = 2239) 2.4 G/DL 1.9-3.7 CALC A/G RATIO (test code = 2233) 1.8 RATIO 1.0-2.6 BILIRUBIN, TOTAL (test code = 2206) 0.3 MG/DL See_Comment [Automated me ssage] The system which generated this result transmitted reference range: <=1.2. The reference range was not used to interpret this result as normal/abnormal. ALKALINE PHOSPHATASE (test code = 2203) 77 U/L 40-130 AST (test code = 8) 16 U/L 9-40 ALT (test code = 221) 15 U/L 5-40 LIPID [id number] 06:45:27* Test Item Value Reference Range Interpretation Comme nts CHOLESTEROL (test code = 2209) 182 MG/DL <200 TRIGLYCERIDES (test code = 2232) 82 MG/DL <150 HDL CHOLESTEROL (test code = 2220) 50 MG/DL >39 CALC LDL CHOL (test code = 2236) 114 MG/DL <100 H NOTE: CALCULATED LDL IS BASED ON GLENIS-MIRELES METHOD WHICHINCLUDES ADJUSTABLE TRIGLYCERIDE:VLDL CHOLESTEROL RATIO.THIS FACTOR VARIES BY MEASURED TRIGLYCERIDE AND NON-HDLCHOLESTEROL CONCENTRATIONS WITH INCREASED CALCULATED LDL SEENIN HIGHER TRIGLYCERIDE OR LOWER NON-HDL SPECIMENS. FOR MOREINFORMATION, SEE CLIENT ANNOUNCEMENT AT [email or web address] [email or web address] RATIO LDL/HDL (test code = 2238) 2.28 RATIO <3.22 HEMOGLOBIN [id number] 02:34:56* Test Item Value Reference Range Interpretation Comme [facility] HEMOGLOBIN A1c (test code = 17906) 6.4 % 4.2-5.6 H UNLESS OTHERWISE INDICATED, ALL TESTING [facility] [address] [place] [address] ENERGY TRADER: SADIQ VANEGAS M.D. CLIA NUMBER [id number] [facility] [place]. [id number] COMPREHENSIVE METABOLIC [id number] 00:00:00* Test Item Value Reference Range Interpretation Comme nts GLUCOSE (test code = 2217) 126 MG/DL BUN (test code = 2208) 12 MG/DL CREATININE (test code = 2214) 1.24 MG/DL eGFR (2020 CKD-EPI) (test co de = 72114) 53 ML/MIN/1.73 CALC BUN/CREAT (test code = 2235) 10 RATIO SODIUM (test code = 2231) 144 MEQ/L POTASSIUM (test code = 2228) 4.0 MEQ/L CHLORIDE (test code = 2215) 110 MEQ/L CARBON DIOXIDE (test code = 2206) 18 MEQ/L CALCIUM (test code = 2209) 9.3 MG/DL PROTEIN, TOTAL (test code = 2229) 6.7 G/DL ALBUMIN (test code = 2201) 4.3 G/DL CALC GLOBULIN (test code = 2240) 2.4 G/DL CALC A/G RATIO (test code = 2234) 1.8 RATIO BILIRUBIN, TOTAL (test code = 2207) 0.3 MG/DL ALKALINE PHOSPHATASE (test code = 2204) 77 U/L AST (test code = 2218) 16 U/L ALT (test code = 2219) 15 U/L COMPREHENSIVE METABOLIC [id number] 00:00:00* Test Item Value Reference Range Interpretation Comme nts GLUCOSE (test code = 2217) 126 MG/DL BUN (test code = 2208) 12 MG/DL CREATININE (test code = 2214) 1.24 MG/DL eGFR (2020 CKD-EPI) (test co de = 77518) 53 ML/MIN/1.73 CALC BUN/CREAT (test code = 2235) 10 RATIO SODIUM (test code = 2231) 144 MEQ/L POTASSIUM (test code = 2228) 4.0 MEQ/L CHLORIDE (test code = 2215) 110 MEQ/L CARBON DIOXIDE (test code = 2206) 18 MEQ/L CALCIUM (test code = 2209) 9.3 MG/DL PROTEIN, TOTAL (test code = 2229) 6.7 G/DL ALBUMIN (test code = 2201) 4.3 G/DL CALC GLOBULIN (test code = 2240) 2.4 G/DL CALC A/G RATIO (test code = 2234) 1.8 RATIO BILIRUBIN, TOTAL (test code = 2207) 0.3 MG/DL ALKALINE PHOSPHATASE (test code = 2204) 77 U/L AST (test code = 2218) 16 U/L ALT (test code = 2219) 15 U/L LIPID [id number] 00:00:00* Test Item Value Reference Range Interpretation Comme nts CHOLESTEROL (test code = 2210) 182 MG/DL TRIGLYCERIDES (test code = 2232) 82 MG/DL HDL CHOLESTEROL (test code = 2220) 50 MG/DL CALC LDL CHOL (test code = 2237) 114 MG/DL RISK RATIO LDL/HDL (test cod e = 2238) 2.28 RATIO LIPID [id number] 00:00:00* Test Item Value Reference Range Interpretation Comme nts CHOLESTEROL (test code = 2210) 182 MG/DL TRIGLYCERIDES (test code = 2232) 82 MG/DL HDL CHOLESTEROL (test code = 2220) 50 MG/DL CALC LDL CHOL (test code = 2237) 114 MG/DL RISK RATIO LDL/HDL (test cod e = 2238) 2.28 RATIO HEMOGLOBIN [id number] 00:00:00* Test Item Value Reference Range Interpretation Comme nts HEMOGLOBIN A1c (test code = 25633) 6.4 % HEMOGLOBIN [id number] 00:00:00* Test Item Value Reference Range Interpretation Comme nts HEMOGLOBIN A1c (test code = 61218) 6.4 % HEMOGLOBIN [id number] 00:00:00* Test Item Value Reference Range Interpretation Comme nts HEMOGLOBIN A1c (test code = 50820) 6.4 % C-ARM<1 HR W IMAGES*WW*2022-08-17 13:28:04 [facility] : 1970 Sex: FFLUOROSCOPYCLINICAL HISTORY: Surgical procedure Comments: Intraoperative fluoroscopy services were provided. A radiologist was not present for the procedure. Selected images demonstrate bilateral needle placement in the lower lumbar spine. Total fluoroscopy time: 3.8 seconds. Image count: 2IMPRESSION: Fluoroscopyservices provided. Please see separate operative report for detailed findings.Location: [id number] signed by: Dane Ann MD 08/17/2022 1:28 PM [facility] [id number] URINE MONOCLONAL *WW*2022-08-17 13:05:00* Test Item Value Reference Range Interpretation Comme nts PREG UR (test code = PGU) NEGATIVE NEGATIVE [id number] 20:14:57* Test Item Value Reference Range Interpretation Comme nts MAGNESIUM (test code = 3555958774) 1.7 mg/dL 1.7-2.4 Lab Interpretation (test cod e = 81816-0) Normal [facility]Tran[facility] echo (TTE)2022-07-26 18:53:16* Test Item Value Reference Range Interpretation Comme nts Height (test code = 5294678361) in Weight (test code = 2872987005) lbs Systolic BP (test code = 8313798231) mmHg Diastolic BP (test code = 6412237034) mmHg Heart Rate (test code = 7400503948) bpm BSA (test code = 1278465023) 2.00 m2 Radiology Study observation (narrative) (test code = 22632-2) LUCILLE (test code = LUCILLE) ?Left?Ventricle: Left [...] A limited echocardiogram was performed using 2D. [facility] HospitalN-TERMINAL [id number] 03:58:31* Test Item Value Reference Range Interpretation Comme nts NT-proBNP (test code = 0790325717) 580 pg/mL See_Comment H [Automated message] The system which generated this result transmitted reference range: <=125. The reference range was not used to interpret this result as normal/abnormal. LUCILLE (test code = LUCILLE) Biotin has been reported to cause a negative bias, interpret results relative to patient's use of biotin. Lab Interpretation (test code = 15746-1) Abnormal [facility] HospitalTR[facility]IN [id number] 03:21:06* Test Item Value Reference Range Interpretation Comments TROPONIN I (test code = 8523751022) 0.013 ng/mL See_Comment [Automated message] The system which generated this result transmitted reference range: <=0.034. The reference range was not used to interpret this result as normal/abnormal. LUCILLE (test code = LUCILLE) Reference (Normal) [...] patient's use of biotin. Lab Interpretation (test code = 38251-1) Normal [facility] HospitalPREGNANCY TEST, [id number] 03:20:56* Test Item Value Reference Range Interpretation Comme nts PREG SERUM (test code = 3256644474) Negative ULCILLE (test code = LUCILLE) Less than 10 IU/L. ?If low titer or ectopic is suspected, resubmit specimen in 48-72 hours. [facility]. METABOLIC PANEL (49912)2022-07-26 03:09:22* Test Item Value Reference Range Interpretation Comme nts NA (test code = 0181979033) 137 mmol/L 135-145 K (test code = 2767971955) 4.5 mmol/L 3.5-5.0 CL (test code = 9573069678) 106 mmol/L 98-108 CO2 TOTAL (test code = 7291595430) 21 mmol/L 23-31 L AGAP (test code = 5298717147) 2-16 BUN (test code = 4534986242) 19 mg/dL 7-23 GLUCOSE (test code = 1044537808) 154 mg/dL 70-110 H CREATININE (test code = 5976884550) 0.97 mg/dL 0.50-1.04 TOTAL BILI (test code = 0365766029) 0.3 mg/dL 0.1-1.1 CALCIUM (test code = 5636243147) 9.6 mg/dL 8.6-10.6 T PROTEIN (test code = 2121557126) 6.8 g/dL 6.3-8.2 ALBUMIN (test code = 3486843883) 4.1 g/dL 3.5-5.0 ALK PHOS (test code = 6574766656) 144 U/L 34-122 H ALTv (test code = 1742-6) 41 U/L 5-35 H AST(SGOT) (test code = 1012149634) 24 U/L 13-40 eGFR (test code = 3811229797) mL/min/1.73m2 LUCILLE (test code = LUCILLE) Association [...] imaging tests). Lab Interpretation (test code = 15766-1) Abnormal [facility] HospitalD-[id number] 03:06:05* Test Item Value Reference Range Interpretation Comments D-DIMER (test code = 9187043503) See_Comment H [Automated message] The system which generated this result transmitted reference range: <0.50 ?g/mL (FEU). The reference range was not used to interpret this result as normal/abnormal. LUCILLE (test code = LUCILLE) This test may be used in conjunction with a clinical pretest [...] context, in forming a diagnosis. Lab Interpretation (test code = 56942-9) Abnormal [facility] WITH [id number] 02:34:21* Test Item Value Reference Range Interpretation Comme nts WBC (test code = 6690-2) See_Comment H [Automated [employer] ge] The system which generated this result transmitted reference range: 4.30 - 11.10 10*3/?L. The reference range was not used to interpret this result as normal/abnormal. RBC (test code = 789-8) See_Comment [Automated [employer] ge] The system which generated this result transmitted reference range: 3.93 - 5.25 10*6/?L. The reference range was not used to interpret this result as normal/abnormal. HGB (test code = 718-7) 12.1 g/dL 11.6-15.0 HCT (test code = 4544-3) 37.6 % 35.7-45.2 MCV (test code = 787-2) 79.8 fL 80.6-95.5 L MCH (test code = 785-6) 25.7 pg 25.9-32.8 L MCHC (test code = 786-4) 32.2 g/dL 31.6-35.1 RDW-SD (test code = 17626-8) 48.4 fL 39.0-49.9 RDW-CV (test code = 788-0) 16.6 % 12.0-15.5 H PLT (test code = 777-3) See_Comment [Automated [employer]] The system which generated this result transmitted reference range: 166 - 358 10*3/?L. The reference range was not used to interpret this result as normal/abnormal. MPV (test code = 59169-6) 10.4 fL 9.5-12.9 NRBC/100 WBC (test code = [id number]) See_Comment [Automated [employer] ssage] The system which generated this result transmitted reference range: 0.0 - 10.0 /100 WBCs. The reference range was not used to interpret this result as normal/abnormal. NRBC x10^3 (test code = [id number]) See_Comment [Automated messa ge] The system which generated this result transmitted reference range: 10*3/?L. The reference range was not used to interpret this result as normal/abnormal. GRAN MAT (NEUT) % (test code = 770-8) 85.4 % IMM GRAN % (test code = [id number]) 2.00 % LYMPH % (test code = 736-9) 9.9 % MONO % (test code = 5905-5) 1.9 % EOS % (test code = 713-8) 0.3 % BASO % (test code = 706-2) 0.5 % GRAN MAT x10^3(ANC) (test code = 0089148664) 9.84 10*3/uL 1.88-7.09 H IMM GRAN x10^3 (test code = 9941978852) 0.23 10*3/uL 0.00-0.06 H LYMPH x10^3 (test code = 731-0) 1.14 10*3/uL 1.32-3.29 L MONO x10^3 (test code = 742-7) 0.22 10*3/uL 0.33-0.92 L EOS x10^3 (test code = 711-2) 0.03 10*3/uL 0.03-0.39 BASO x10^3 (test code = 704-7) 0.06 10*3/uL 0.01-0.07 Lab Interpretation (test code = 78695-8) [facility]normal [facility] [id number] 02:25:00* Test Item Value Reference Range Interpretation Comme nts POCT PREG (test code = 1605) Negative On board controls acceptable with C Line (test code = 3574) Present POCT PREG LOT # (test code = 3575) [id number] POCT PREG TEST DATE ( test code = 3576) 12/02/2023 Lab Interpretation (test cod e = 31060-0) Normal [facility]CLONAL *WW*2022-07-20 14:10:00* Test Item Value Reference Range Interpretation Comme nts PREG UR (test code = PGU) NEGATIVE NEGATIVE BLOOD [id number] 07:22:00* Test Item Value Reference Range Interpretation Comme nts Culture Observations (test code = COB1) POSITIVE BLOOD CULTURE A Culture Observations (test code = COB2) 1 OF 2 BOTTLES Isolate 1 (test code = ISO1) Diphtheroids Troponin [id number] 11:14:56* Test Item Value Reference Range Interpretation Comments TROPONIN I (test code = 8897388206) 0.035 ng/mL See_Comment H Hemolyzed specimen [Automated message] The system which generated this result transmitted reference range: <=0.034. The reference range was not used to interpret this result as normal/abnormal. LUCILLE (test code = LUCILLE) Reference (Normal) [...] patient's use of biotin. Lab Interpretation (test code = 43925-6) [facility]normal [facility] HospitalDIRECT [facility] [id number] 10:18:00* Test Item Value Reference Range Interpretation Comme nts Culture Observations (test code = COB1) NO BETA HEMOLYTIC STREPTOCOCCUS ISOLATED Direct Exam (test code = DE3) NEGATIVE FOR STREP A ANTIGEN BLOOD [id number] 07:35:00* Test Item Value Reference Range Interpretation Comments Culture Observations (test code = COB1) POSITIVE BLOOD CULTURE Culture Observations (test code = COB2) 1 OF 4 BOTTLES Isolate 1 (test code = ISO1) Coagulase negative staphylococcus POSSIBLE CONTAMINANTIF SUSCEPTIBILITY NEEDED, PLEASE NOTIFY MICRO WITHIN [address] CHEST W/O [id number] 21:52:03 [facility] : 1970 Sex: FEXAMINATION:CTCHEST W/O CONTRASTCLINICAL INDICATION:Female, 51 years old with Acute infectious disease; DyspneaTECHNIQUE: Axial non-contrast contiguous images were obtained through the chest followed by coronal and sagittal multiplanar reformations.One or more of the following dose reduction techniques were used: Automated exposure control, adjustment of the mA and/or kV according to patient size, and/or iterat lloyd reconstruction. COMPARISON: NoneFINDINGS:Chest:Medical Devices: None.Lymph Nodes: There are no pathologically enlarged supraclavicular, mediastinal, or axillary lymph nodes.Lungs/Airways/Pleura: Trachea and main bronchi are patent. The right lower lobe infiltrate is identified consistent with pneumonia. No pneumothorax is identified. No pulmonary [...] Fidencio Thurston MD 06/23/2022 9:52 PM CDT [id number] 21:26:00* Test Item Value Reference Range Interpretation Comme nts PROCALCITONIN (test code = PCT) 0.13 ng/mL 0.00-0.24 PROCALCITONIN REF (test code = PCTH) PROCALCITONIN REFERENCE RANGE < 0.25 ng/mL suggests viral infection on day of admission 0.25-0.5 ng/mL young zone >0.5 ng/mL is highly suggestive of bacterial infection BRAIN NATRIURETIC [id number] 21:04:00* Test Item Value Reference Range Interpretation Comme nts BNP (test code = A74) 24 pg/mL See_Comment [Automated messa ge] The system which generated this result transmitted reference range: <=100. The reference range was not used to interpret this result as normal/abnormal. DIRECT INFLUENZA A AND B [id number] 21:00:00* Test Item Value Reference Range Interpretation Comme nts Direct Exam (test code = DE3) PRESUMPTIVE NEGATIVE FOR THE PRESENCE OF INFLUENZA ANTIGEN SARS-CoV (RAPID ANTIGEN)2022-06-23 20:49:00* Test Item Value Reference Range Interpretation Comme nts SARS-CoV (ANTIGEN) (test code = COVAG) NEGATIVE NEGATIVE COVID AG (test code = COVAGC) This test has been marketed under the FDA Emergency Use Authorization (EUA) to meet challenges of the COVID-19 pandemic. The validation standards normally enforced by the FDA and the [employer] the [place] [employer] (CAP) are more stringent than those required for this test. Therefore, the result should be interpreted with caution and close attention to other clinical and epidemiological data COMPREHENSIVE METABOLIC [id number] 20:46:00* Test Item Value Reference Range Interpretation Comme nts GLUCOSE (test code = 06D) 112 mg/dL 75-100 H SODIUM (test code = 01A) 143 mmol/L 136-145 POTASSIUM (test code = 01B) 4.3 mmol/L 3.6-5.1 CHLORIDE (test code = 04A) 109 mmol/L 98-107 H CO2 (test code = 02A) 26 mmol/L 20-31 ANION GAP (test code = ANG) 12.3 mmol/L BUN (test code = 05D) 15 mg/dL 9-23 CREATININE (test code = 03E) 0.9 mg/dL 0.6-1.0 GFR (test code = GFR) 74 mL/min/1.73m\\S\\2 See_Comment L [Automated message] The system which generated this result transmitted reference range: >=90. The reference range was not used to interpret this result as normal/abnormal. GFR (test code = GFRAA) 86 mL/min/1.73m\\S\\2 See_Comment L [Automated message] The system which generated this result transmitted reference range: >=90. The reference range was not used to interpret this result as normal/abnormal. EGFR (test code = EGFR) eGFR BY CKD-EPI CALCULATION IS NOT RECOMMENDED FOR PATIENTS UNDER 18 YEARS OF AGE. BUN/CREA (test code = BCR) 17 12-20 CALCIUM (test code = 09D) 8.4 mg/dL 8.3-10.6 BILI TOTAL (test code = 11A) 0.2 mg/dL 0.2-1.0 PROTEIN (test code = 07D) 6.2 g/dL 5.7-8.2 ALBUMIN (test code = 08D) 4.3 g/dL 3.2-4.8 GLOBULIN (test code = GLB) 1.9 g/dL 1.5-3.8 ALB/GLOB (test code = AGRR) 2.3 1.0-2.6 ALK PHOS (test code = 35A) 107 IU/L 46-116 AST (test code = 30A) 29 IU/L See_Comment [Automated message] The system which generated this result transmitted reference range: <=33. The reference range was not used to interpret this result as normal/abnormal. ALT (test code = 31A) 68 IU/L 10-49 H [id number] 20:46:00* Test Item Value Reference Range Interpretation Comme nts MAGNESIUM (test code = 48A) 2.1 mg/dL 1.6-2.6 TROPONIN [id number] 20:46:00* Test Item Value Reference Range Interpretation Comme nts TROPONIN I (test code = A84) 8.36 pg/mL 0.00-45.20 CBC WITH [id number] 20:44:00* Test Item Value Reference Range Interpretation Comme nts WBC (test code = WBC) 8.9 10\\S\\3/uL [...] 1.1-3.5 MONOCYTE # (test code = MO#) 0.7 10\\S\\3/uL 0.0-1.1 EOSINOPH # (test code = EO#) 0.5 10\\S\\3/uL 0.0-0.7 BASOPHIL # (test code = BA#) 0.1 10\\S\\3/uL 0.0-0.3 IG # (test code = IG#) 0.07 10\\S\\3/uL 0.00-0.06 H NRBC # (test code = NRBC#) 0.00 10\\S\\3/uL 0.00-0.01 NEUTROPH % (test code = NE%) 67.0 % 35.0-73.0 LYMPH % (test code = LY%) 17.9 % 20.0-55.0 L MONO % (test code = MO%) 7.3 % 2.5-10.0 EOSINOPH % (test code = EO%) 6.1 % 0.0-5.0 H BASOPHIL % (test code = BA%) 0.9 % 0.0-2.0 IG % (test code = IG%) 0.8 % 0.0-0.8 NRBC% (test code = NRBC%) 0.0 % 0.0-0.2 PLT EST (test code = PLTEST) ADEQUATE ADEQUATE PLT MORPH (test code = PLTMOR) NORMAL (1.5-3 um) NORMAL ANISO (test code = ANISO) 2+ NONE A HYPOCHROM (test code = HYPOC) 1+ NONE A MICROCYTIC (test code = MICRO) 1+ NONE A PRO TIME AND [id number] 20:43:00* Test Item Value Reference Range Interpretation Comme nts PT (test code = TT) 10.5 s 9.8-13.6 INR (test code = INR) 0.9 INRH (test code = INRH) SUGGESTED THERAPEUTIC RANGE FOR INR: 2.5 - 3.5 For Patients with Prosthetic Valves or Patients with recurrent Thromboembolic Events 2.0 - 3.0 For Most Other Applications PTT (test code = PTT) 26.0 s 20.2-38.0 PTTH (test code = PTTH) To monitor the effectiveness of heparin, we offer the Anti-Xa (Heparin Assay). It can be used for either unfractionated or LMW Heparin. Order Code is ANTI-XA [id number] 20:43:00* Test Item Value Reference Range Interpretation Comme nts D-DIMER (test code = DDI) 286 ng/mL D-DU 0-234 H D-DIMER COMMENT (test code = DDCOM) *Level to rule out DVT or PE: <235 ng/mL D-DU* SERUM [id number] 20:40:00* Test Item Value Reference Range Interpretation Comme nts PREG SRM (test code = PGS) NEGATIVE NEGATIVE LACTIC [id number] 20:17:00* Test Item Value Reference Range Interpretation Comme nts LACTIC ACD (test code = LA) 0.9 mmol/L 0.4-2.0 XR CHEST 1 VIEW [id number] 20:05:47 [facility] : 1970 Sex: FLocation code: [id number] 1 viewIndication: Dyspnea.Comparison: 06/21/2022Findings:The heart and mediastinum are not remarkable.Costophrenic angles are clear.Elevation of the right hemidiaphragm and small right basilar atelectasis.ACDF lower cervical spineImpression:1. No change. Elevation the right hemidiaphragm and small right basilar atelectasisElectronically signed by: Bucky Keith MD 06/23/2022 8:05 PM CDT RYGXS *WW*2022-06-22 05:27:00* Test Item Value Reference Range Interpretation Comme nts D-DIMER (test code = DDI) 352 ng/mL D-DU 0-234 H D-DIMER COMMENT (test code = DDCOM) *Level to rule out DVT or PE: <235 ng/mL D-DU* LACTIC ACID WW2022-06-22 05:26:00* Test Item Value Reference Range Interpretation Comme nts LACTIC ACD (test code = LA) 1.5 mmol/L 0.4-2.0 PRO TIME AND PTT *WW*2022-06-22 00:46:00* Test Item Value Reference Range Interpretation Comme nts PT (test code = TT) 10.7 s 9.8-13.6 INR (test code = INR) 0.9 INRH (test code = INRH) SUGGESTED THERAPEUTIC RANGE FOR INR: 2.5 - 3.5 For Patients with Prosthetic Valves or Patients with recurrent Thromboembolic Events 2.0 - 3.0 For Most Other Applications PTT (test code = PTT) 23.3 s 20.2-38.0 PTTH (test code = PTTH) To monitor the effectiveness of heparin, we offer the Anti-Xa (Heparin Assay). It can be used for either unfractionated or LMW Heparin. Order Code is ANTI-XA LACTIC ACID WW2022-06-21 23:44:00* Test Item Value Reference Range Interpretation Comme nts LACTIC ACD (test code = LA) 2.7 mmol/L 0.4-2.[address] CHEST W/ CONTRAST *WW*2022-06-21 22:47:01 [facility] : 1970 Sex: FEXAMINATION:CTCHEST W/ CONTRAST *WW*CLINICAL INDICATION:Female, 51 years old with DyspneaTECHNIQUE: Axial post-contrast contiguous images were obtained through the chest followed by coronal and sagittal multiplanar reformations.One or more of the following dose reduction techniques were used: Automated exposure control, adjustment of the mA and/or kV according to patient size, and/or iterative reconstruction. C OMPARISON: NoneFINDINGS:Chest:Medical Devices: None.Lymph Nodes: There are no [...] structures are within normal limits.Bones: No acute abnormalityor suspicious bony lesion.IMPRESSION:1. Right lower lobe pneumonia.Electronically signed by: Fidencio Thurston MD 06/21/2022 10:47 PM CDT MB FRACTION *WW* 2022-06-21 22:00:00* Test Item Value Reference Range Interpretation Comme nts CKMB (test code = A49) 3.4 ng/mL See_Comment [Automated messa ge] The system which generated this result transmitted reference range: <=3.6. The reference range was not used to interpret this result as normal/abnormal. MAGNESIUM WW2022-06-21 21:52:00* Test Item Value Reference Range Interpretation Comme nts MAGNESIUM (test code = 48A) 2.3 mg/dL 1.6-2.6 CPK *WW*2022-06-21 21:50:00* Test Item Value Reference Range Interpretation Comme nts CPK (test code = 32A) 176 IU/L 34-145 H AMYLASE AND LIPASE 2022-06-21 21:50:00* Test Item Value Reference Range Interpretation Comme nts AMYLASE (test code = 10A) 54 U/L 28-100 LIPASE (test code = 60A) 39 IU/L 12-53 COMPREHENSIVE METABOLIC ENRIQUE *WW*2022-06-21 21:50:00* Test Item Value Reference Range Interpretation Comme nts GLUCOSE (test code = 06D) 108 mg/dL 75-100 H SODIUM (test code = 01A) 143 mmol/L 136-145 POTASSIUM (test code = 01B) 4.7 mmol/L 3.6-5.1 CHLORIDE (test code = 04A) 109 mmol/L 98-107 H CO2 (test code = 02A) 24 mmol/L 20-31 ANION GAP (test code = ANG) 14.7 mmol/L BUN (test code = 05D) 17 mg/dL 9-23 CREATININE (test code = 03E) 1.0 mg/dL 0.6-1.0 GFR (test code = GFR) 65 mL/min/1.73m\\S\\2 See_Comment L [Automated message] The system which generated this result transmitted reference range: >=90. The reference range was not used to interpret this result as normal/abnormal. GFR (test code = GFRAA) 76 mL/min/1.73m\\S\\2 See_Comment L [Automated message] The system which generated this result transmitted reference range: >=90. The reference range was not used to interpret this result as normal/abnormal. EGFR (test code = EGFR) eGFR BY CKD-EPI CALCULATION IS NOT RECOMMENDED FOR PATIENTS UNDER 18 YEARS OF AGE. BUN/CREA (test code = BCR) 17 12-20 CALCIUM (test code = 09D) 9.2 mg/dL 8.3-10.6 BILI TOTAL (test code = 11A) 0.3 mg/dL 0.2-1.0 PROTEIN (test code = 07D) 7.8 g/dL 5.7-8.2 ALBUMIN (test code = 08D) 4.8 g/dL 3.2-4.8 GLOBULIN (test code = GLB) 3.0 g/dL 1.5-3.8 ALB/GLOB (test code = AGRR) 1.6 1.0-2.6 ALK PHOS (test code = 35A) 105 IU/L 46-116 AST (test code = 30A) 42 IU/L See_Comment H [Automated message] The system which generated this result transmitted reference range: <=33. The reference range was not used to interpret this result as normal/abnormal. ALT (test code = 31A) 88 IU/L 10-49 H URINALYSIS WITH MICRO *WW*2022-06-21 20:59:00* Test Item Value Reference Range Interpretation Comme nts COLOR (test code = COLU) YELLOW YELLOW CLARITY (test code = CLA) SLT HAZY CLEAR A GLUCOSE UR (test code = UA GLUCOSE) NEGATIVE NEGATIVE BILI UR (test code = BILE) NEGATIVE NEGATIVE KETONES UR (test code = MELLY) NEGATIVE NEGATIVE SP GRAVITY (test code = SPGR) 1.020 1.005-1.030 PH UR (test code = PH) 6.5 4.5-8.0 PROTEIN UR (test code = PU) TRACE NEGATIVE A UROBIL UR (test code = UROQ) 0.2 EU/dL 0.2-1.0 NITRITE UR (test code = NITRITE) NEGATIVE NEGATIVE BLOOD UR (test code = UA BLOOD) [...] USPERM) /HPF NONE CBC WITH MORPHOLOGY *WW*2022-06-21 20:56:00* Test Item Value Reference Range Interpretation Comme nts WBC (test code = WBC) 12.2 10\\S\\3/uL [...] 1.1-3.5 MONOCYTE # (test code = MO#) 0.8 10\\S\\3/uL 0.0-1.1 EOSINOPH # (test code = EO#) 0.5 10\\S\\3/uL 0.0-0.7 BASOPHIL # (test code = BA#) 0.1 10\\S\\3/uL 0.0-0.3 IG # (test code = IG#) 0.13 10\\S\\3/uL 0.00-0.06 H NRBC # (test code = NRBC#) 0.07 10\\S\\3/uL 0.00-0.01 H NEUTROPH % (test code = NE%) 73.1 % 35.0-73.0 H LYMPH % (test code = LY%) 14.6 % 20.0-55.0 L MONO % (test code = MO%) 6.2 % 2.5-10.0 EOSINOPH % (test code = EO%) 4.3 % 0.0-5.0 BASOPHIL % (test code = BA%) 0.7 % 0.0-2.0 IG % (test code = IG%) 1.1 % 0.0-0.8 H NRBC% (test code = NRBC%) 0.6 % 0.0-0.2 H PLT EST (test code = PLTEST) ADEQUATE ADEQUATE PLT MORPH (test code = PLTMOR) NORMAL (1.5-3 um) NORMAL ANISO (test code = ANISO) 2+ NONE A MICROCYTIC (test code = MICRO) 1+ NONE A POLYCHROM (test code = POLY) 1+ NONE A TARGET (test code = TARG) 2+ NONE A SPHERO (test code = SPHC) 2+ NONE A STOMATO (test code = STOM) 2+ NONE A SARS-CoV (RAPID ANTIGEN) WW2022-06-21 20:52:00* Test Item Value Reference Range Interpretation Comme nts SARS-CoV (ANTIGEN) (test code = COVAG) NEGATIVE NEGATIVE COVID AG (test code = COVAGC) This test has been marketed under the FDA Emergency Use Authorization (EUA) to meet challenges of the COVID-19 pandemic. The validation standards normally enforced by the FDA and the [employer] the [place] [employer] (CAP) are more stringent than those required for this test. Therefore, the result should be interpreted with caution and close attention to other clinical and epidemiological data DIRECT INFLUENZA A AND B [id number] 20:50:00* Test Item Value Reference Range Interpretation Comme nts Direct Exam (test code = DE3) PRESUMPTIVE NEGATIVE FOR THE PRESENCE OF INFLUENZA ANTIGEN XR CHEST 1 VIEW PORTABLE *WW*2022-06-21 20:39:36 [facility] : 1970 Sex: FEXAMINATION:XRCHEST 1 VIEW PORTABLE *WW*CLINICAL INDICATION:Female, 51 years year old with DyspneaCOMPARISON: None.FINDINGS:Single view(s) of the chest submitted.Support Devices: None.Heart: Cardiac silhouette is normal in size.Mediastinum: Mediastinal contours are normal.Lungs: Pulmonary vessels are normal in size. Bilateral interstitial opacities/infiltrates identified with differential considerations including interstitial edema and bilateral pneumonia.Pleura: Small pleural effusions are present. No pneumothorax is present.Bones: Visualized skeleton is normal.IMPRESSION:1. Interstitial edema versus bilateral pneumonia.2. Small pleural effusions.Electronically signed by: Fidencio Thurston MD 06/21/2022 8:39 PM CDT [id number] NATRIURETIC PEPTIDE *WW* 2022-06-21 20:38:00* Test Item Value Reference Range Interpretation Comme nts BNP (test code = A74) 22 pg/mL See_Comment [Automated [employer]] The system which generated this result transmitted reference range: <=100. The reference range was not used to interpret this result as normal/abnormal. SERUM MONOCLONAL *WW*2022-06-21 20:27:00* Test Item Value Reference Range Interpretation Comme nts PREG SRM (test code = PGS) NEGATIVE NEGATIVE C-ARM<1 HR W IMAGES*WW*2022-06-15 16:54:53 [facility] : 1970 Sex: FFluoroscopyLocation Code: [id number] HISTORY: Surgical procedureComments: Fluoroscopy was provided during cervicalinjection. Total reference Air Kerma: 0.46 mGy. Approximate fluoroscopy time: 6.3 seconds. Images obtained: 4 IMPRESSION: Fluoroscopy services provided. Please see operative report for full details. Electronically signed by: Gabriele Castaneda MD 06/15/2022 4:54 PM CDT URINE MONOCLONAL *WW*2022-06-15 14:02:00* Test Item Value Reference Range Interpretation Comme nts PREG UR (test code = PGU) NEGATIVE NEGATIVE C-ARM<1 HR W IMAGES*WW*2022-05-12 08:26:58 [facility] : 1970 Sex: FClinical history: Surgical procedure.Location: D4.FINDINGS: 2 spot fluoroscopic intraoperative images are submitted. The images show needle placement along the lateral aspects of the cervical spine related to medial branch block. Please refer to the operative report. A total of 10.9 seconds fluoroscopy time is utilized. Cumulative dose equals 0.66 mGy.IMPRESSION:1. Intraoperative fluoroscopy.Electronically signed by: Alexey Ott MD 05/12/2022 8:26 AM CDT [id number] URINE MONOCLONAL *WW*2022-05-11 12:51:00* Test Item Value Reference Range Interpretation Comme nts PREG UR (test code = PGU) NEGATIVE NEGATIVE C-ARM<1 HR W IMAGES*WW*2022-04-06 16:03:45 [facility] : 1970 Sex: FFluoroscopyLocation Code: [id number] HISTORY: Neck painComments: Fluoroscopy was provided during bilateral medial branch block. Approximately fluoroscopy time was 5.0 seconds. 2 fluoroscopic spot images were taken.IMPRESSION: Fluoroscopy services provided. Please see operative report for full details.Electronically signed by: Iglesia Garvey MD 04/06/2022 4:03 PM CDT [id number] URINE MONOCLONAL *WW*2022-04-06 12:39:00* Test Item Value Reference Range Interpretation Comme nts PREG UR (test code = PGU) NEGATIVE NEGATIVE Basic Metabolic Panel (NA, K, CL, CO2, GLUCOSE, BUN, CREATININE, CA)2022-02-26 09:48:31* Test Item Value Reference Range Interpretation Comme nts NA (test code = 5285376437) 143 mmol/L 135-145 K (test code = 9421805626) 3.5 mmol/L 3.5-5.0 CL (test code = 4560765421) 114 mmol/L 98-108 H CO2 TOTAL (test code = 3842090828) 24 mmol/L 23-31 AGAP (test code = 2713671532) 2-16 BUN (test code = 0180491094) 9 mg/dL 7-23 GLUCOSE (test code = 8926858687) 96 mg/dL 70-110 CREATININE (test code = 2475818581) 0.92 mg/dL 0.50-1.04 CALCIUM (test code = 5185804293) 8.1 mg/dL 8.6-10.6 L eGFR (test code = 2923588745) mL/min/1.73m2 LUCILLE (test code = LUCILLE) Association [...] imaging tests). Lab Interpretation (test code = 58938-0) Abnormal [facility] with [id number] 09:36:32* Test Item Value Reference Range Interpretation Comme nts WBC (test code = 6690-2) See_Comment [Automated NTRglobal] The system which generated this result transmitted reference range: 4.30 - 11.10 10*3/?L. The reference range was not used to interpret this result as normal/abnormal. RBC (test code = 789-8) See_Comment [Automated NTRglobal] The system which generated this result transmitted reference range: 3.93 - 5.25 10*6/?L. The reference range was not used to interpret this result as normal/abnormal. HGB (test code = 718-7) 10.0 g/dL 11.6-15.0 L HCT (test code = 4544-3) 32.7 % 35.7-45.2 L MCV (test code = 787-2) 76.9 fL 80.6-95.5 L MCH (test code = 785-6) 23.5 pg 25.9-32.8 L MCHC (test code = 786-4) 30.6 g/dL 31.6-35.1 L RDW-SD (test code = 66899-1) 46.8 fL 39.0-49.9 RDW-CV (test code = 788-0) 16.7 % 12.0-15.5 H PLT (test code = 777-3) See_Comment [Automated messa ge] The system which generated this result transmitted reference range: 166 - 358 10*3/?L. The reference range was not used to interpret this result as normal/abnormal. MPV (test code = 51720-6) 10.8 fL 9.5-12.9 NRBC/100 WBC (test code = 7404059266) See_Comment [Automated [employer] ssage] The system which generated this result transmitted reference range: 0.0 - 10.0 /100 WBCs. The reference range was not used to interpret this result as normal/abnormal. NRBC x10^3 (test code = 6946460852) <0.01 See_Comment [Automated messa ge] The system which generated this result transmitted reference range: 10*3/?L. The reference range was not used to interpret this result as normal/abnormal. GRAN MAT (NEUT) % (test code = 770-8) 54.4 % IMM GRAN % (test code = 2705996513) 0.20 % LYMPH % (test code = 736-9) 31.5 % MONO % (test code = 5905-5) 8.7 % EOS % (test code = 713-8) 3.2 % BASO % (test code = 706-2) 2.0 % GRAN MAT x10^3(ANC) (test code = 5064204181) 2.69 10*3/uL 1.88-7.09 IMM GRAN x10^3 (test code = 4107083603) <0.03 0.00-0.06 LYMPH x10^3 (test code = 731-0) 1.56 10*3/uL 1.32-3.29 MONO x10^3 (test code = 742-7) 0.43 10*3/uL 0.33-0.92 EOS x10^3 (test code = 711-2) 0.16 10*3/uL 0.03-0.39 BASO x10^3 (test code = 704-7) 0.10 10*3/uL 0.01-0.07 H Lab Interpretation (test code = 44243-0) [facility] [id number] 04:00:15* Test Item Value Reference Range Interpretation Comments TROPONIN I (test code = 7914334466) 0.004 ng/mL See_Comment [Automated message] The system which generated this result transmitted reference range: <=0.034. The reference range was not used to interpret this result as normal/abnormal. LUCILLE (test code = LUCILLE) Reference (Normal) [...] patient's use of biotin. Lab Interpretation (test code = 02391-3) Normal [facility] [id number] 04:00:15* Test Item Value Reference Range Interpretation Comme nts NT-proBNP (test code = 8242130806) 42 pg/mL See_Comment [Automated message] The system which generated this result transmitted reference range: <=125. The reference range was not used to interpret this result as normal/abnormal. LUCILLE (test code = LUCILLE) Biotin has been reported to cause a negative bias, interpret results relative to patient's use of biotin. Lab Interpretation (test code = 58662-1) [facility] ([id number])2022-02-26 03:48:34* Test Item Value Reference Range Interpretation Comme nts NA (test code = 8567685739) 142 mmol/L 135-145 K (test code = 8239321494) 3.6 mmol/L 3.5-5.0 Slight hemolysis CL (test code = 2745611398) 109 mmol/L 98-108 H CO2 TOTAL (test code = 6682815608) 26 mmol/L 23-31 AGAP (test code = 1408601727) 2-16 BUN (test code = 6151006716) 10 mg/dL 7-23 Slight hemolysis GLUCOSE (test code = 5972985734) 84 mg/dL 70-110 CREATININE (test code = 0509174634) 0.99 mg/dL 0.50-1.04 TOTAL BILI (test code = 8637595703) 0.4 mg/dL 0.1-1.1 CALCIUM (test code = 6415675873) 8.9 mg/dL 8.6-10.6 T PROTEIN (test code = 4729434020) 6.5 g/dL 6.3-8.2 ALBUMIN (test code = 0299644078) 4.0 g/dL 3.5-5.0 ALK PHOS (test code = 9593977633) 71 U/L 34-122 Slight hemolysis ALTv (test code = 1742-6) 18 U/L 5-35 AST(SGOT) (test code = 0362629363) 25 U/L 13-40 Slight hemolysis eGFR (test code = 2899784665) mL/min/1.73m2 LUCILLE (test code = LUCILLE) Association [...] imaging tests). Lab Interpretation (test code = 31177-1) [facility]* Test Item Value Reference Range Interpretation Comme nts LIPASE (test code = 0304229752) 166 U/L 0-220 Lab Interpretation (test cod e = 52984-0) Normal [facility] WITH [id number] 03:34:33* Test Item Value Reference Range Interpretation Comme nts WBC (test code = 6690-2) See_Comment [Automated NTRglobal] The system which generated this result transmitted reference range: 4.30 - 11.10 10*3/?L. The reference range was not used to interpret this result as normal/abnormal. RBC (test code = 789-8) See_Comment [[employer]] The system which generated this result transmitted reference range: 3.93 - 5.25 10*6/?L. The reference range was not used to interpret this result as normal/abnormal. HGB (test code = 718-7) 10.8 g/dL 11.6-15.0 L HCT (test code = 4544-3) 35.2 % 35.7-45.2 L MCV (test code = 787-2) 77.2 fL 80.6-95.5 L MCH (test code = 785-6) 23.7 pg 25.9-32.8 L MCHC (test code = 786-4) 30.7 g/dL 31.6-35.1 L RDW-SD (test code = 08057-1) 47.2 fL 39.0-49.9 RDW-CV (test code = 788-0) 16.8 % 12.0-15.5 H PLT (test code = 777-3) See_Comment [Automated messa ge] The system which generated this result transmitted reference range: 166 - 358 10*3/?L. The reference range was not used to interpret this result as normal/abnormal. MPV (test code = 90012-4) 10.3 fL 9.5-12.9 NRBC/100 WBC (test code = 6943956939) See_Comment [Automated [employer] ssage] The system which generated this result transmitted reference range: 0.0 - 10.0 /100 WBCs. The reference range was not used to interpret this result as normal/abnormal. NRBC x10^3 (test code = 0113372146) <0.01 See_Comment [Automated messa ge] The system which generated this result transmitted reference range: 10*3/?L. The reference range was not used to interpret this result as normal/abnormal. GRAN MAT (NEUT) % (test code = 770-8) 51.0 % IMM GRAN % (test code = 7967045070) 0.20 % LYMPH % (test code = 736-9) 31.6 % MONO % (test code = 5905-5) 10.7 % EOS % (test code = 713-8) 4.3 % BASO % (test code = 706-2) 2.2 % GRAN MAT x10^3(ANC) (test code = 8759903555) 2.59 10*3/uL 1.88-7.09 IMM GRAN x10^3 (test code = 5390532194) <0.03 0.00-0.06 LYMPH x10^3 (test code = 731-0) 1.60 10*3/uL 1.32-3.29 MONO x10^3 (test code = 742-7) 0.54 10*3/uL 0.33-0.92 EOS x10^3 (test code = 711-2) 0.22 10*3/uL 0.03-0.39 BASO x10^3 (test code = 704-7) 0.11 10*3/uL 0.01-0.07 H Lab Interpretation (test code = 11313-8) Abnormal [facility] [id number] 06:03:26* Test Item Value Reference Range Interpretation Comments TROPONIN I (test code = 4393955343) 0.003 ng/mL See_Comment [Automated message] The system which generated this result transmitted reference range: <=0.034. The reference range was not used to interpret this result as normal/abnormal. LUCILLE (test code = LUCILLE) Reference (Normal) [...] patient's use of biotin. Lab Interpretation (test code = 23844-5) Normal [facility] [id number] 03:56:22* Test Item Value Reference Range Interpretation Comments TROPONIN I (test code = 6681840613) 0.003 ng/mL See_Comment [Automated message] The system which generated this result transmitted reference range: <=0.034. The reference range was not used to interpret this result as normal/abnormal. LUCILLE (test code = LUCILLE) Reference (Normal) [...] patient's use of biotin. Lab Interpretation (test code = 98432-5) [facility] [id number] 03:53:00* Test Item Value Reference Range Interpretation Comme nts NT-proBNP (test code = 3067189967) 143 pg/mL See_Comment H [Automated message] The system which generated this result transmitted reference range: <=125. The reference range was not used to interpret this result as normal/abnormal. LUCILLE (test code = LUCILLE) Biotin has been reported to cause a negative bias, interpret results relative to patient's use of biotin. Lab Interpretation (test code = 44208-7) Abnormal [facility]. METABOLIC PANEL (26686)2022-02-23 03:45:59* Test Item Value Reference Range Interpretation Comme nts NA (test code = 2891586214) 140 mmol/L 135-145 K (test code = 0861606621) 4.0 mmol/L 3.5-5.0 CL (test code = 9761598862) 110 mmol/L 98-108 H CO2 TOTAL (test code = 9493709323) 17 mmol/L 23-31 L AGAP (test code = 2704527667) 2-16 BUN (test code = 1305435388) 14 mg/dL 7-23 GLUCOSE (test code = 6116257433) 105 mg/dL 70-110 CREATININE (test code = 1229061190) 1.03 mg/dL 0.50-1.04 TOTAL BILI (test code = 0822956564) 0.3 mg/dL 0.1-1.1 CALCIUM (test code = 7012661585) 8.9 mg/dL 8.6-10.6 T PROTEIN (test code = 4346422663) 6.1 g/dL 6.3-8.2 L ALBUMIN (test code = 6287949604) 3.8 g/dL 3.5-5.0 ALK PHOS (test code = 9820642150) 91 U/L 34-122 ALTv (test code = 1742-6) 19 U/L 5-35 AST(SGOT) (test code = 1235028354) 21 U/L 13-40 eGFR (test code = 7764833801) mL/min/1.73m2 LUCILLE (test code = LUCILLE) Association [...] imaging tests). Lab Interpretation (test code = 92640-9) Abnormal [facility] WITH [id number] 03:23:19* Test Item Value Reference Range Interpretation Comme nts WBC (test code = 6690-2) See_Comment [Automated NTRglobal] The system which generated this result transmitted reference range: 4.30 - 11.10 10*3/?L. The reference range was not used to interpret this result as normal/abnormal. RBC (test code = 789-8) See_Comment [Automated NTRglobal] The system which generated this result transmitted reference range: 3.93 - 5.25 10*6/?L. The reference range was not used to interpret this result as normal/abnormal. HGB (test code = 718-7) 10.4 g/dL 11.6-15.0 L HCT (test code = 4544-3) 33.4 % 35.7-45.2 L MCV (test code = 787-2) 76.3 fL 80.6-95.5 L MCH (test code = 785-6) 23.7 pg 25.9-32.8 L MCHC (test code = 786-4) 31.1 g/dL 31.6-35.1 L RDW-SD (test code = 01716-6) 45.7 fL 39.0-49.9 RDW-CV (test code = 788-0) 16.6 % 12.0-15.5 H PLT (test code = 777-3) See_Comment [Automated messa ge] The system which generated this result transmitted reference range: 166 - 358 10*3/?L. The reference range was not used to interpret this result as normal/abnormal. MPV (test code = 42500-8) 10.9 fL 9.5-12.9 NRBC/100 WBC (test code = 6879790809) See_Comment [Automated [employer] ssage] The system which generated this result transmitted reference range: 0.0 - 10.0 /100 WBCs. The reference range was not used to interpret this result as normal/abnormal. NRBC x10^3 (test code = 4665980131) <0.01 See_Comment [Automated messa ge] The system which generated this result transmitted reference range: 10*3/?L. The reference range was not used to interpret this result as normal/abnormal. GRAN MAT (NEUT) % (test code = 770-8) 53.8 % IMM GRAN % (test code = 0216125777) 0.20 % LYMPH % (test code = 736-9) 34.0 % MONO % (test code = 5905-5) 7.9 % EOS % (test code = 713-8) 2.6 % BASO % (test code = 706-2) 1.5 % GRAN MAT x10^3(ANC) (test code = 1270913192) 3.25 10*3/uL 1.88-7.09 IMM GRAN x10^3 (test code = 9222548922) <0.03 0.00-0.06 LYMPH x10^3 (test code = 731-0) 2.06 10*3/uL 1.32-3.29 MONO x10^3 (test code = 742-7) 0.48 10*3/uL 0.33-0.92 EOS x10^3 (test code = 711-2) 0.16 10*3/uL 0.03-0.39 BASO x10^3 (test code = 704-7) 0.09 10*3/uL 0.01-0.07 H Lab Interpretation (test code = 64319-6) Abnormal [facility], THIRD [id number] 09:21:37* Test Item Value Reference Range Interpretation Comme nts TSH, THIRD GENERATION (test code = 2821) TEST NOT PERFORMED UIU/ML 0.400-4.100 TESTING CANNOT BE PERFORMED DUE TO AN INTERFERING SUBSTANCE. CHARGES DELETED. [id number] 09:21:37* Test Item Value Reference Range Interpretation Comme nts PROGESTERONE (test code = 2790) TEST NOT PERFORMED NG/ML SEE BELOW TESTING CANNOT BE PERFORMED DUE TO AN INTERFERING SUBSTANCE. CHARGES DELETED. EXPECTED VALUES FOR PROGESTERONE MALE . . . . . . . . . . . . . . . . NG/ML <0.20 FEMALE FOLLICULAR PHASE . . . . . . . . . NG/ML <0.90 OVULATION . . . . . . . . . . . . NG/ML <12.00 LUTEAL PHASE . . . . . . . . . . . NG/ML 1.83-23.90 POSTMENOPAUSAL . . . . . . . . . . NG/ML <0.20 1ST TRIMESTER. . . . . . . . . . . NG/ML 11.00-44.30 2ND TRIMESTER. . . . . . . . . . . NG/ML 25.40-83.30 3RD TRIMESTER. . . . . . . . . . . NG/ML 58.70-214.00 [id number] 09:21:37* Test Item Value Reference Range Interpretation Comme nts ESTRADIOL (test code = 2505) TEST NOT PERFORMED PG/ML SEE BELOW TESTING CANNOT BE PERFORMED DUE TO AN INTERFERING SUBSTANCE. CHARGES DELETED. UNLESS OTHERWISE INDICATED, ALL TESTING PERFORMED ATCLINLip[employer] PATHOLOGY [employer] [address] [place] [id number] ENERGY TRADER: SADIQ VANEGAS M.D. CLIA NUMBER [id number] [facility] [place]. [id number] COMPREHENSIVE METABOLIC [id number] 09:21:22* Test Item Value Reference Range Interpretation Comme nts GLUCOSE (test code = 2216) TEST NOT PERFORMED MG/DL 70-99 TESTING CANNOT BE PERFORMED DUE TO AN INTERFERING SUBSTANCE. CHARGES DELETED. BUN (test code = 2207) TEST NOT PERFORMED MG/DL 6-20 CREATININE (test code = 4) TEST NOT PERFORMED MG/DL 0.60-1.30 eGFR (2020 CKD-EPI) (test code = 45498) TEST NOT PERFORMED ML/MIN/1.73 >60 CALC BUN/CREAT (test code = 2234) TEST NOT PERFORMED RATIO 6-28 SODIUM (test code = 2230) TEST NOT PERFORMED MEQ/L 133-146 POTASSIUM (test code = 2227) TEST NOT PERFORMED MEQ/L 3.5-5.4 CHLORIDE (test code = 2214) TEST NOT PERFORMED MEQ/L 95-107 CARBON DIOXIDE (test code = 6) TEST NOT PERFORMED MEQ/L 19-31 CALCIUM (test code = 2208) TEST NOT PERFORMED MG/DL 8.5-10.5 PROTEIN, TOTAL (test code = 2228) TEST NOT PERFORMED G/DL 6.1-8.3 ALBUMIN (test code = 2200) TEST NOT PERFORMED G/DL 3.5-5.2 CALC GLOBULIN (test code = 0) TEST NOT PERFORMED G/DL 1.9-3.7 CALC A/G RATIO (test code = 2233) TEST NOT PERFORMED RATIO 1.0-2.6 BILIRUBIN, TOTAL (test code = 2206) TEST NOT PERFORMED MG/DL See_Comment [Automated message] The system which generated this result transmitted reference range: <=1.2. The reference range was not used to interpret this result as normal/abnormal. ALKALINE PHOSPHATASE (test code = 4) TEST NOT PERFORMED U/L 40-130 AST (test code = 2217) TEST NOT PERFORMED U/L 9-40 ALT (test code = 2219) TEST NOT PERFORMED U/L 5-40 [id number] 00:00:00* Test Item Value Reference Range Interpretation Comme [facility] TSH, THIRD GENERATION (test code = 2821) TEST NOT PERFORMED UIU/ML [id number] 00:00:00* Test Item Value Reference Range Interpretation Comme nts TSH, THIRD GENERATION (test code = 2821) TEST NOT PERFORMED UIU/ML [id number] 00:00:00* Test Item Value Reference Range Interpretation Comme nts TSH, THIRD GENERATION (test code = 2821) TEST NOT PERFORMED UIU/ML COMPREHENSIVE METABOLIC [id number] 00:00:00* Test Item Value Reference Range Interpretation Comme nts GLUCOSE (test code = 2217) TEST NOT PERFORMED MG/DL BUN (test code = 2208) TEST NOT PERFORME D MG/DL CREATININE (test code = 2214) TEST NOT PERFORMED MG/DL eGFR (2020 CKD-EPI) (test code = 33213) TEST NOT PERFORMED ML/MIN/1.73 CALC BUN/CREAT (test code = 2235) TEST NOT PERFORMED RATIO SODIUM (test code = 2231) TEST NOT PERFORMED MEQ/L POTASSIUM (test code = 2228) TEST NOT PERFORMED MEQ/L CHLORIDE (test code = 2215) TEST NOT PERFORMED MEQ/L CARBON DIOXIDE (test code = 2206) TEST NOT PERFORMED MEQ/L CALCIUM (test code = 2209) TEST NOT PERFORMED MG/DL PROTEIN, TOTAL (test code = 2229) TEST NOT PERFORMED G/DL ALBUMIN (test code = 2201) TEST NOT PERFORMED G/DL CALC GLOBULIN (test code = 2240) TEST NOT PERFORMED G/DL CALC A/G RATIO (test code = 2234) TEST NOT PERFORMED RATIO BILIRUBIN, TOTAL (test code = 2207) TEST NOT PERFORMED MG/DL ALKALINE PHOSPHATASE (test code = 2204) TEST NOT PERFORMED U/L AST (test code = 2218) TEST NOT PERFORME D U/L ALT (test code = 2219) TEST NOT PERFORME D U/L COMPREHENSIVE METABOLIC [id number] 00:00:00* Test Item Value Reference Range Interpretation Comme nts GLUCOSE (test code = 2217) TEST NOT PERFORMED MG/DL BUN (test code = 2208) TEST NOT PERFORME D MG/DL CREATININE (test code = 2214) TEST NOT PERFORMED MG/DL eGFR (2020 CKD-EPI) (test code = 42184) TEST NOT PERFORMED ML/MIN/1.73 CALC BUN/CREAT (test code = 2235) TEST NOT PERFORMED RATIO SODIUM (test code = 2231) TEST NOT PERFORMED MEQ/L POTASSIUM (test code = 2228) TEST NOT PERFORMED MEQ/L CHLORIDE (test code = 2215) TEST NOT PERFORMED MEQ/L CARBON DIOXIDE (test code = 2206) TEST NOT PERFORMED MEQ/L CALCIUM (test code = 2209) TEST NOT PERFORMED MG/DL PROTEIN, TOTAL (test code = 2229) TEST NOT PERFORMED G/DL ALBUMIN (test code = 2201) TEST NOT PERFORMED G/DL CALC GLOBULIN (test code = 2240) TEST NOT PERFORMED G/DL CALC A/G RATIO (test code = 2234) TEST NOT PERFORMED RATIO BILIRUBIN, TOTAL (test code = 2207) TEST NOT PERFORMED MG/DL ALKALINE PHOSPHATASE (test code = 2204) TEST NOT PERFORMED U/L AST (test code = 2218) TEST NOT PERFORME D U/L ALT (test code = 2219) TEST NOT PERFORME D U/L [id number] 00:00:00* Test Item Value Reference Range Interpretation Comme nts PROGESTERONE (test code = 2790) TEST NOT PERFORMED NG/ML [id number] 00:00:00* Test Item Value Reference Range Interpretation Comme nts PROGESTERONE (test code = 2790) TEST NOT PERFORMED NG/ML [id number] 00:00:00* Test Item Value Reference Range Interpretation Comme nts ESTRADIOL (test code = 2505) TEST NOT PERFORMED PG/ML [id number] 00:00:00* Test Item Value Reference Range Interpretation Comme nts ESTRADIOL (test code = 2505) TEST NOT PERFORMED PG/ML [id number] 00:00:00* Test Item Value Reference Range Interpretation Comme nts ESTRADIOL (test code = 2505) TEST NOT PERFORMED PG/ML [id number] 00:00:00* Test Item Value Reference Range Interpretation Comme nts TSH, THIRD GENERATION (test code = 2821) TEST NOT PERFORMED UIU/ML [id number] 00:00:00* Test Item Value Reference Range Interpretation Comme nts TSH, THIRD GENERATION (test code = 2821) TEST NOT PERFORMED UIU/ML [id number] 00:00:00* Test Item Value Reference Range Interpretation Comme nts TSH, THIRD GENERATION (test code = 2821) TEST NOT PERFORMED UIU/ML COMPREHENSIVE METABOLIC [id number] 00:00:00* Test Item Value Reference Range Interpretation Comme nts GLUCOSE (test code = 2217) TEST NOT PERFORMED MG/DL BUN (test code = 2208) TEST NOT PERFORME D MG/DL CREATININE (test code = 2214) TEST NOT PERFORMED MG/DL eGFR (2020 CKD-EPI) (test code = 18782) TEST NOT PERFORMED ML/MIN/1.73 CALC BUN/CREAT (test code = 2235) TEST NOT PERFORMED RATIO SODIUM (test code = 2231) TEST NOT PERFORMED MEQ/L POTASSIUM (test code = 2228) TEST NOT PERFORMED MEQ/L CHLORIDE (test code = 2215) TEST NOT PERFORMED MEQ/L CARBON DIOXIDE (test code = 2206) TEST NOT PERFORMED MEQ/L CALCIUM (test code = 2209) TEST NOT PERFORMED MG/DL PROTEIN, TOTAL (test code = 2229) TEST NOT PERFORMED G/DL ALBUMIN (test code = 2201) TEST NOT PERFORMED G/DL CALC GLOBULIN (test code = 2240) TEST NOT PERFORMED G/DL CALC A/G RATIO (test code = 2234) TEST NOT PERFORMED RATIO BILIRUBIN, TOTAL (test code = 2207) TEST NOT PERFORMED MG/DL ALKALINE PHOSPHATASE (test code = 2204) TEST NOT PERFORMED U/L AST (test code = 2218) TEST NOT PERFORME D U/L ALT (test code = 2219) TEST NOT PERFORME D U/L COMPREHENSIVE METABOLIC [id number] 00:00:00* Test Item Value Reference Range Interpretation Comme nts GLUCOSE (test code = 2217) TEST NOT PERFORMED MG/DL BUN (test code = 2208) TEST NOT PERFORME D MG/DL CREATININE (test code = 2214) TEST NOT PERFORMED MG/DL eGFR (2020 CKD-EPI) (test code = 71814) TEST NOT PERFORMED ML/MIN/1.73 CALC BUN/CREAT (test code = 2235) TEST NOT PERFORMED RATIO SODIUM (test code = 2231) TEST NOT PERFORMED MEQ/L POTASSIUM (test code = 2228) TEST NOT PERFORMED MEQ/L CHLORIDE (test code = 2215) TEST NOT PERFORMED MEQ/L CARBON DIOXIDE (test code = 2206) TEST NOT PERFORMED MEQ/L CALCIUM (test code = 2209) TEST NOT PERFORMED MG/DL PROTEIN, TOTAL (test code = 2229) TEST NOT PERFORMED G/DL ALBUMIN (test code = 2201) TEST NOT PERFORMED G/DL CALC GLOBULIN (test code = 2240) TEST NOT PERFORMED G/DL CALC A/G RATIO (test code = 2234) TEST NOT PERFORMED RATIO BILIRUBIN, TOTAL (test code = 2207) TEST NOT PERFORMED MG/DL ALKALINE PHOSPHATASE (test code = 2204) TEST NOT PERFORMED U/L AST (test code = 2218) TEST NOT PERFORME D U/L ALT (test code = 2219) TEST NOT PERFORME D U/L [id number] 00:00:00* Test Item Value Reference Range Interpretation Comme nts PROGESTERONE (test code = 2790) TEST NOT PERFORMED NG/ML [id number] 00:00:00* Test Item Value Reference Range Interpretation Comme nts PROGESTERONE (test code = 2790) TEST NOT PERFORMED NG/ML [id number] 00:00:00* Test Item Value Reference Range Interpretation Comme nts ESTRADIOL (test code = 2505) TEST NOT PERFORMED PG/ML [id number] 00:00:00* Test Item Value Reference Range Interpretation Comme nts ESTRADIOL (test code = 2505) TEST NOT PERFORMED PG/ML [id number] 00:00:00* Test Item Value Reference Range Interpretation Comme nts ESTRADIOL (test code = 2505) TEST NOT PERFORMED PG/ML [id number] 00:00:00* Test Item Value Reference Range Interpretation Comme nts TSH, THIRD GENERATION (test code = 2821) TEST NOT PERFORMED UIU/ML [id number] 00:00:00* Test Item Value Reference Range Interpretation Comme nts TSH, THIRD GENERATION (test code = 2821) TEST NOT PERFORMED UIU/ML [id number] 00:00:00* Test Item Value Reference Range Interpretation Comme nts TSH, THIRD GENERATION (test code = 2821) TEST NOT PERFORMED UIU/ML [id number] 00:00:00* Test Item Value Reference Range Interpretation Comme nts TSH, THIRD GENERATION (test code = 2821) TEST NOT PERFORMED UIU/ML [id number] 00:00:00* Test Item Value Reference Range Interpretation Comme nts TSH, THIRD GENERATION (test code = 2821) TEST NOT PERFORMED UIU/ML [id number] 00:00:00* Test Item Value Reference Range Interpretation Comme nts TSH, THIRD GENERATION (test code = 2821) TEST NOT PERFORMED UIU/ML COMPREHENSIVE METABOLIC [id number] 00:00:00* Test Item Value Reference Range Interpretation Comme nts GLUCOSE (test code = 2217) TEST NOT PERFORMED MG/DL BUN (test code = 2208) TEST NOT PERFORME D MG/DL CREATININE (test code = 2214) TEST NOT PERFORMED MG/DL eGFR (2020 CKD-EPI) (test code = 97957) TEST NOT PERFORMED ML/MIN/1.73 CALC BUN/CREAT (test code = 2235) TEST NOT PERFORMED RATIO SODIUM (test code = 2231) TEST NOT PERFORMED MEQ/L POTASSIUM (test code = 2228) TEST NOT PERFORMED MEQ/L CHLORIDE (test code = 2215) TEST NOT PERFORMED MEQ/L CARBON DIOXIDE (test code = 2206) TEST NOT PERFORMED MEQ/L CALCIUM (test code = 2209) TEST NOT PERFORMED MG/DL PROTEIN, TOTAL (test code = 2229) TEST NOT PERFORMED G/DL ALBUMIN (test code = 2201) TEST NOT PERFORMED G/DL CALC GLOBULIN (test code = 2240) TEST NOT PERFORMED G/DL CALC A/G RATIO (test code = 2234) TEST NOT PERFORMED RATIO BILIRUBIN, TOTAL (test code = 2207) TEST NOT PERFORMED MG/DL ALKALINE PHOSPHATASE (test code = 2204) TEST NOT PERFORMED U/L AST (test code = 2218) TEST NOT PERFORME D U/L ALT (test code = 2219) TEST NOT PERFORME D U/L COMPREHENSIVE METABOLIC [id number] 00:00:00* Test Item Value Reference Range Interpretation Comme nts GLUCOSE (test code = 2217) TEST NOT PERFORMED MG/DL BUN (test code = 2208) TEST NOT PERFORME D MG/DL CREATININE (test code = 2214) TEST NOT PERFORMED MG/DL eGFR (2020 CKD-EPI) (test code = 76123) TEST NOT PERFORMED ML/MIN/1.73 CALC BUN/CREAT (test code = 2235) TEST NOT PERFORMED RATIO SODIUM (test code = 2231) TEST NOT PERFORMED MEQ/L POTASSIUM (test code = 2228) TEST NOT PERFORMED MEQ/L CHLORIDE (test code = 2215) TEST NOT PERFORMED MEQ/L CARBON DIOXIDE (test code = 2206) TEST NOT PERFORMED MEQ/L CALCIUM (test code = 2209) TEST NOT PERFORMED MG/DL PROTEIN, TOTAL (test code = 2229) TEST NOT PERFORMED G/DL ALBUMIN (test code = 2201) TEST NOT PERFORMED G/DL CALC GLOBULIN (test code = 2240) TEST NOT PERFORMED G/DL CALC A/G RATIO (test code = 2234) TEST NOT PERFORMED RATIO BILIRUBIN, TOTAL (test code = 2207) TEST NOT PERFORMED MG/DL ALKALINE PHOSPHATASE (test code = 2204) TEST NOT PERFORMED U/L AST (test code = 2218) TEST NOT PERFORME D U/L ALT (test code = 2219) TEST NOT PERFORME D U/L COMPREHENSIVE METABOLIC [id number] 00:00:00* Test Item Value Reference Range Interpretation Comme nts GLUCOSE (test code = 2217) TEST NOT PERFORMED MG/DL BUN (test code = 2208) TEST NOT PERFORME D MG/DL CREATININE (test code = 2214) TEST NOT PERFORMED MG/DL eGFR (2020 CKD-EPI) (test code = 07371) TEST NOT PERFORMED ML/MIN/1.73 CALC BUN/CREAT (test code = 2235) TEST NOT PERFORMED RATIO SODIUM (test code = 2231) TEST NOT PERFORMED MEQ/L POTASSIUM (test code = 2228) TEST NOT PERFORMED MEQ/L CHLORIDE (test code = 2215) TEST NOT PERFORMED MEQ/L CARBON DIOXIDE (test code = 2206) TEST NOT PERFORMED MEQ/L CALCIUM (test code = 2209) TEST NOT PERFORMED MG/DL PROTEIN, TOTAL (test code = 2229) TEST NOT PERFORMED G/DL ALBUMIN (test code = 2201) TEST NOT PERFORMED G/DL CALC GLOBULIN (test code = 2240) TEST NOT PERFORMED G/DL CALC A/G RATIO (test code = 2234) TEST NOT PERFORMED RATIO BILIRUBIN, TOTAL (test code = 2207) TEST NOT PERFORMED MG/DL ALKALINE PHOSPHATASE (test code = 2204) TEST NOT PERFORMED U/L AST (test code = 2218) TEST NOT PERFORME D U/L ALT (test code = 2219) TEST NOT PERFORME D U/L [id number] 00:00:00* Test Item Value Reference Range Interpretation Comme nts PROGESTERONE (test code = 2790) TEST NOT PERFORMED NG/ML [id number] 00:00:00* Test Item Value Reference Range Interpretation Comme nts PROGESTERONE (test code = 2790) TEST NOT PERFORMED NG/ML [id number] 00:00:00* Test Item Value Reference Range Interpretation Comme nts ESTRADIOL (test code = 2505) TEST NOT PERFORMED PG/ML [id number] 00:00:00* Test Item Value Reference Range Interpretation Comme nts ESTRADIOL (test code = 2505) TEST NOT PERFORMED PG/ML [id number] 00:00:00* Test Item Value Reference Range Interpretation Comme nts ESTRADIOL (test code = 2505) TEST NOT PERFORMED PG/ML COMPREHENSIVE METABOLIC [id number] 00:00:00* Test Item Value Reference Range Interpretation Comme nts GLUCOSE (test code = 2217) TEST NOT PERFORMED MG/DL BUN (test code = 2208) TEST NOT PERFORME D MG/DL CREATININE (test code = 2214) TEST NOT PERFORMED MG/DL eGFR (2020 CKD-EPI) (test code = 88289) TEST NOT PERFORMED ML/MIN/1.73 CALC BUN/CREAT (test code = 2235) TEST NOT PERFORMED RATIO SODIUM (test code = 2231) TEST NOT PERFORMED MEQ/L POTASSIUM (test code = 2228) TEST NOT PERFORMED MEQ/L CHLORIDE (test code = 2215) TEST NOT PERFORMED MEQ/L CARBON DIOXIDE (test code = 2206) TEST NOT PERFORMED MEQ/L CALCIUM (test code = 2209) TEST NOT PERFORMED MG/DL PROTEIN, TOTAL (test code = 2229) TEST NOT PERFORMED G/DL ALBUMIN (test code = 2201) TEST NOT PERFORMED G/DL CALC GLOBULIN (test code = 2240) TEST NOT PERFORMED G/DL CALC A/G RATIO (test code = 2234) TEST NOT PERFORMED RATIO BILIRUBIN, TOTAL (test code = 2207) TEST NOT PERFORMED MG/DL ALKALINE PHOSPHATASE (test code = 2204) TEST NOT PERFORMED U/L AST (test code = 2218) TEST NOT PERFORME D U/L ALT (test code = 2219) TEST NOT PERFORME D U/L [id number] 00:00:00* Test Item Value Reference Range Interpretation Comme nts PROGESTERONE (test code = 2790) TEST NOT PERFORMED NG/ML [id number] 00:00:00* Test Item Value Reference Range Interpretation Comme nts PROGESTERONE (test code = 2790) TEST NOT PERFORMED NG/ML [id number] 00:00:00* Test Item Value Reference Range Interpretation Comme nts ESTRADIOL (test code = 2505) TEST NOT PERFORMED PG/ML [id number] 00:00:00* Test Item Value Reference Range Interpretation Comme nts ESTRADIOL (test code = 2505) TEST NOT PERFORMED PG/ML [id number] 00:00:00* Test Item Value Reference Range Interpretation Comme nts ESTRADIOL (test code = 2505) TEST NOT PERFORMED PG/ML TROPONIN [id number] 14:05:29* Test Item Value Reference Range Interpretation Comments TROPONIN I (test code = 3065764072) <0.012 See_Comment [Automated message] The system which generated this result transmitted reference range: <=0.034 ng/mL. The reference range was not used to interpret this result as normal/abnormal. LUCILLE (test code = LUCILLE) Reference (Normal) [...] patient's use of biotin. Lab Interpretation (test code = 77463-1) [id number] 14:02:07* Test Item Value Reference Range Interpretation Comme nts NT-proBNP (test code = 8016268512) 343 pg/mL See_Comment H [Automated message] The system which generated this result transmitted reference range: <=125. The reference range was not used to interpret this result as normal/abnormal. LUCILLE (test code = LUCILLE) Biotin has been reported to cause a negative bias, interpret results relative to patient's use of biotin. Lab Interpretation (test code = 88118-6) Abnormal [facility]. METABOLIC PANEL (53294)2022-01-29 13:53:30* Test Item Value Reference Range Interpretation Comme nts NA (test code = 3787140749) 146 mmol/L 135-145 H K (test code = 8162219758) 4.2 mmol/L 3.5-5.0 CL (test code = 3638536149) 114 mmol/L 98-108 H CO2 TOTAL (test code = 5865108016) 23 mmol/L 23-31 AGAP (test code = 3612004155) 2-16 BUN (test code = 4179909183) 14 mg/dL 7-23 GLUCOSE (test code = 2512685034) 72 mg/dL 70-110 CREATININE (test code = 7942942809) 1.08 mg/dL 0.50-1.04 H TOTAL BILI (test code = 7060457333) 0.3 mg/dL 0.1-1.1 CALCIUM (test code = 9890204583) 9.1 mg/dL 8.6-10.6 T PROTEIN (test code = 9745053332) 6.1 g/dL 6.3-8.2 L ALBUMIN (test code = 4285686397) 3.8 g/dL 3.5-5.0 ALK PHOS (test code = 3056995369) 86 U/L 34-122 ALTv (test code = 1742-6) 26 U/L 5-35 AST(SGOT) (test code = 7923812164) 28 U/L 13-40 eGFR (test code = 8209972082) mL/min/1.73m2 LUCILLE (test code = LUCILLE) Association [...] imaging tests). Lab Interpretation (test code = 13441-5) [facility]normal [facility] + LACTIC [id number] 13:52:59* Test Item Value Reference Range Interpretation Comme nts PH (test code = 4667689946) 7.32-7.42 PCO2 WYATT (test code = 5490551340) See_Comment [Automated messa ge] The system which generated this result transmitted reference range: 41 - 51 mmHg. The reference range was not used to interpret this result as normal/abnormal. PO2 WYATT (test code = 2091694358) See_Comment L [Automated messa ge] The system which generated this result transmitted reference range: 25 - 40 mmHg. The reference range was not used to interpret this result as normal/abnormal. HCO3 WYATT (test code = 3529946394) See_Comment [Automated messa ge] The system which generated this result transmitted reference range: 24 - 28 mEq/L. The reference range was not used to interpret this result as normal/abnormal. AC VBE(BEAKER) (test code = 8005870454) mEq/L THB WYATT (test code = 2195540701) 11.4 g/dL 12.0-16.0 L %O2HB WYATT (test code = 2844334905) 21.7 % 52.0-63.0 L %COHB WYATT (test code = 3514208884) 0.3 % 0.0-1.5 %METHB WYATT (test code = 4087114330) 1.1 % 0.4-1.5 VOL%O2 WYATT (test code = 1257590122) 3.5 % 6.0-12.0 L NA (test code = 4654984744) 145 mmol/L 135-145 K+ (test code = 3694337257) 4.0 mmol/L 3.5-5.0 AC CA IONZ (test code = 5201616898) 5.00 mg/dL 4.50-5.30 GLUCOSE (test code = 2373194466) 70 mg/dL 70-110 LACTIC ACID (test code = 7526460917) 2.81 mmol/L 0.50-2.20 H Lab Interpretation (test code = 84676-1) Abnormal [facility] WITH [id number] 13:41:47* Test Item Value Reference Range Interpretation Comme nts WBC (test code = 6690-2) See_Comment [Automated [employer] ge] The system which generated this result transmitted reference range: 4.30 - 11.10 10*3/?L. The reference range was not used to interpret this result as normal/abnormal. RBC (test code = 789-8) See_Comment [Automated [employer] ge] The system which generated this result transmitted reference range: 3.93 - 5.25 10*6/?L. The reference range was not used to interpret this result as normal/abnormal. HGB (test code = 718-7) 10.6 g/dL 11.6-15.0 L HCT (test code = 4544-3) 34.9 % 35.7-45.2 L MCV (test code = 787-2) 82.1 fL 80.6-95.5 MCH (test code = 785-6) 24.9 pg 25.9-32.8 L MCHC (test code = 786-4) 30.4 g/dL 31.6-35.1 L RDW-SD (test code = 12536-7) 47.6 fL 39.0-49.9 RDW-CV (test code = 788-0) 15.9 % 12.0-15.5 H PLT (test code = 777-3) See_Comment [Automated [employer] ge] The system which generated this result transmitted reference range: 166 - 358 10*3/?L. The reference range was not used to interpret this result as normal/abnormal. MPV (test code = 31915-9) 10.9 fL 9.5-12.9 NRBC/100 WBC (test code = 6028825391) See_Comment [Automated [employer] ssage] The system which generated this result transmitted reference range: 0.0 - 10.0 /100 WBCs. The reference range was not used to interpret this result as normal/abnormal. NRBC x10^3 (test code = 9986504048) <0.01 See_Comment [Automated messa ge] The system which generated this result transmitted reference range: 10*3/?L. The reference range was not used to interpret this result as normal/abnormal. GRAN MAT (NEUT) % (test code = 770-8) 80.7 % IMM GRAN % (test code = 1847049048) 0.30 % LYMPH % (test code = 736-9) 12.4 % MONO % (test code = 5905-5) 4.9 % EOS % (test code = 713-8) 0.9 % BASO % (test code = 706-2) 0.8 % GRAN MAT x10^3(ANC) (test code = 6504956417) 6.92 10*3/uL 1.88-7.09 IMM GRAN x10^3 (test code = 9204492021) 0.03 10*3/uL 0.00-0.06 LYMPH x10^3 (test code = 731-0) 1.06 10*3/uL 1.32-3.29 L MONO x10^3 (test code = 742-7) 0.42 10*3/uL 0.33-0.92 EOS x10^3 (test code = 711-2) 0.08 10*3/uL 0.03-0.39 BASO x10^3 (test code = 704-7) 0.07 10*3/uL 0.01-0.07 Lab Interpretation (test code = 34000-7) Abnormal [facility] W/AUTO DIFF WITH [id number] 05:43:21* Test Item Value Reference Range Interpretation Comme nts WBC (test code = 1001) 5.7 K/UL 3.5-11.0 RBC (test code = 1002) 4.32 M/UL 3.80-5.40 HEMOGLOBIN (test code = 1003) 11.1 G/DL 11.5-15.5 L HEMATOCRIT (test code = 1004) 35.0 % 34.0-45.0 MCV (test code = 1005) 81.0 fL 80.0-99.0 MCH (test code = 1006) 25.7 PG 25.0-33.0 MCHC (test code = 1007) 31.7 G/DL 31.0-36.0 RDW (test code = 1038) 15.3 % 11.5-15.0 H NEUTROPHILS (test code = 1008) 71.7 % LYMPHOCYTES (test code = 1010) 21.2 % MONOCYTES (test code = 1011) 5.2 % EOSINOPHILS (test code = 1012) 0.5 % BASOPHILS (test code = 1013) 1.2 % IMMATURE GRANULOCYTES (test code = 1036) 0.2 % NUCLEATED RBCS (test code = 1065) 0.0 /100 WBC'S See_Comment [Automated messa ge] The system which generated this result transmitted reference range: 0.0. The reference range was not used to interpret this result as normal/abnormal. PLATELET COUNT (test code = 1015) 277 K/UL 130-400 ABSOLUTE NEUTROPHILS (test code = 1066) 4.10 K/UL 1.50-7.50 ABSOLUTE LYMPHOCYTES (test code = 1067) 1.21 K/UL 1.00-4.00 ABSOLUTE MONOCYTES (test code = 1068) 0.30 K/UL 0.20-1.00 ABSOLUTE EOSINOPHILS (test code = 1040) 0.03 K/UL 0.00-0.50 ABSOLUTE BASOPHILS (test code = 1069) 0.07 K/UL 0.00-0.20 ABS IMMATURE GRANULOCYTES (test code = 1020) 0.01 K/UL 0.00-0.10 ABS NUCLEATED RBCS (test code = 51790) 0.00 K/UL 0.00-0.11 HEMOGLOBIN [id number] 05:31:32* Test Item Value Reference Range Interpretation Comme [facility] HEMOGLOBIN A1c (test code = 05889) 6.4 % 4.2-5.6 H HEMOGLOBIN [id number] 00:00:00* Test Item Value Reference Range Interpretation Comme [facility] HEMOGLOBIN A1c (test code = 37296) 6.4 % HEMOGLOBIN [id number] 00:00:00* Test Item Value Reference Range Interpretation Comme [facility] HEMOGLOBIN A1c (test code = 49970) 6.4 % HEMOGLOBIN [id number] 00:00:00* Test Item Value Reference Range Interpretation Comme [facility] HEMOGLOBIN A1c (test code = 83908) 6.4 % CBC W/AUTO [id number] 00:00:00* Test Item Value Reference Range Interpretation Comme nts WBC (test code = 1001) 5.7 K/UL [...] = 1013) 1.2 % IMMATURE GRANULOCYTES (test code = 1036) 0.2 % NUCLEATED RBCS (test code = 1065) 0.0 /100WBC'S PLATELET COUNT (test code = 1015) 277 K/UL ABSOLUTE NEUTROPHILS (test c ode = 1066) 4.10 K/UL ABSOLUTE LYMPHOCYTES (test c ode = 1067) 1.21 K/UL ABSOLUTE MONOCYTES (test cod e = 1068) 0.30 K/UL ABSOLUTE EOSINOPHILS (test c ode = 1040) 0.03 K/UL ABSOLUTE BASOPHILS (test cod e = 1069) 0.07 K/UL ABS IMMATURE GRANULOCYTES (t est code = 1020) 0.01 K/UL ABS NUCLEATED RBCS (test cod e = 24245) 0.00 K/UL CBC W/AUTO [id number] 00:00:00* Test Item Value Reference Range Interpretation Comme nts WBC (test code = 1001) 5.7 K/UL [...] = 1013) 1.2 % IMMATURE GRANULOCYTES (test code = 1036) 0.2 % NUCLEATED RBCS (test code = 1065) 0.0 /100WBC'S PLATELET COUNT (test code = 1015) 277 K/UL ABSOLUTE NEUTROPHILS (test c ode = 1066) 4.10 K/UL ABSOLUTE LYMPHOCYTES (test c ode = 1067) 1.21 K/UL ABSOLUTE MONOCYTES (test cod e = 1068) 0.30 K/UL ABSOLUTE EOSINOPHILS (test c ode = 1040) 0.03 K/UL ABSOLUTE BASOPHILS (test cod e = 1069) 0.07 K/UL ABS IMMATURE GRANULOCYTES (t est code = 1020) 0.01 K/UL ABS NUCLEATED RBCS (test cod e = 89458) 0.00 K/UL CBC W/AUTO [id number] 00:00:00* Test Item Value Reference Range Interpretation Comme nts WBC (test code = 1001) 5.7 K/UL [...] = 1013) 1.2 % IMMATURE GRANULOCYTES (test code = 1036) 0.2 % NUCLEATED RBCS (test code = 1065) 0.0 /100WBC'S PLATELET COUNT (test code = 1015) 277 K/UL ABSOLUTE NEUTROPHILS (test c ode = 1066) 4.10 K/UL ABSOLUTE LYMPHOCYTES (test c ode = 1067) 1.21 K/UL ABSOLUTE MONOCYTES (test cod e = 1068) 0.30 K/UL ABSOLUTE EOSINOPHILS (test c ode = 1040) 0.03 K/UL ABSOLUTE BASOPHILS (test cod e = 1069) 0.07 K/UL ABS IMMATURE GRANULOCYTES (t est code = 1020) 0.01 K/UL ABS NUCLEATED RBCS (test cod e = 25730) 0.00 K/UL HEMOGLOBIN [id number] 00:00:00* Test Item Value Reference Range Interpretation Comme nts HEMOGLOBIN A1c (test code = 57518) 6.4 % HEMOGLOBIN [id number] 00:00:00* Test Item Value Reference Range Interpretation Comme nts HEMOGLOBIN A1c (test code = 06896) 6.4 % HEMOGLOBIN [id number] 00:00:00* Test Item Value Reference Range Interpretation Comme nts HEMOGLOBIN A1c (test code = 13196) 6.4 % CBC W/AUTO [id number] 00:00:00* Test Item Value Reference Range Interpretation Comme nts WBC (test code = 1001) 5.7 K/UL [...] = 1013) 1.2 % IMMATURE GRANULOCYTES (test code = 1036) 0.2 % NUCLEATED RBCS (test code = 1065) 0.0 /100WBC'S PLATELET COUNT (test code = 1015) 277 K/UL ABSOLUTE NEUTROPHILS (test c ode = 1066) 4.10 K/UL ABSOLUTE LYMPHOCYTES (test c ode = 1067) 1.21 K/UL ABSOLUTE MONOCYTES (test cod e = 1068) 0.30 K/UL ABSOLUTE EOSINOPHILS (test c ode = 1040) 0.03 K/UL ABSOLUTE BASOPHILS (test cod e = 1069) 0.07 K/UL ABS IMMATURE GRANULOCYTES (t est code = 1020) 0.01 K/UL ABS NUCLEATED RBCS (test cod e = 01141) 0.00 K/UL CBC W/AUTO [id number] 00:00:00* Test Item Value Reference Range Interpretation Comme nts WBC (test code = 1001) 5.7 K/UL [...] = 1013) 1.2 % IMMATURE GRANULOCYTES (test code = 1036) 0.2 % NUCLEATED RBCS (test code = 1065) 0.0 /100WBC'S PLATELET COUNT (test code = 1015) 277 K/UL ABSOLUTE NEUTROPHILS (test c ode = 1066) 4.10 K/UL ABSOLUTE LYMPHOCYTES (test c ode = 1067) 1.21 K/UL ABSOLUTE MONOCYTES (test cod e = 1068) 0.30 K/UL ABSOLUTE EOSINOPHILS (test c ode = 1040) 0.03 K/UL ABSOLUTE BASOPHILS (test cod e = 1069) 0.07 K/UL ABS IMMATURE GRANULOCYTES (t est code = 1020) 0.01 K/UL ABS NUCLEATED RBCS (test cod e = 38563) 0.00 K/UL CBC W/AUTO [id number] 00:00:00* Test Item Value Reference Range Interpretation Comme nts WBC (test code = 1001) 5.7 K/UL [...] = 1013) 1.2 % IMMATURE GRANULOCYTES (test code = 1036) 0.2 % NUCLEATED RBCS (test code = 1065) 0.0 /100WBC'S PLATELET COUNT (test code = 1015) 277 K/UL ABSOLUTE NEUTROPHILS (test c ode = 1066) 4.10 K/UL ABSOLUTE LYMPHOCYTES (test c ode = 1067) 1.21 K/UL ABSOLUTE MONOCYTES (test cod e = 1068) 0.30 K/UL ABSOLUTE EOSINOPHILS (test c ode = 1040) 0.03 K/UL ABSOLUTE BASOPHILS (test cod e = 1069) 0.07 K/UL ABS IMMATURE GRANULOCYTES (t est code = 1020) 0.01 K/UL ABS NUCLEATED RBCS (test cod e = 09456) 0.00 K/UL HEMOGLOBIN [id number] 00:00:00* Test Item Value Reference Range Interpretation Comme nts HEMOGLOBIN A1c (test code = 52838) 6.4 % HEMOGLOBIN [id number] 00:00:00* Test Item Value Reference Range Interpretation Comme nts HEMOGLOBIN A1c (test code = 41961) 6.4 % HEMOGLOBIN [id number] 00:00:00* Test Item Value Reference Range Interpretation Comme nts HEMOGLOBIN A1c (test code = 67138) 6.4 % CBC W/AUTO [id number] 00:00:00* Test Item Value Reference Range Interpretation Comme nts WBC (test code = 1001) 5.7 K/UL [...] = 1013) 1.2 % IMMATURE GRANULOCYTES (test code = 1036) 0.2 % NUCLEATED RBCS (test code = 1065) 0.0 /100WBC'S PLATELET COUNT (test code = 1015) 277 K/UL ABSOLUTE NEUTROPHILS (test c ode = 1066) 4.10 K/UL ABSOLUTE LYMPHOCYTES (test c ode = 1067) 1.21 K/UL ABSOLUTE MONOCYTES (test cod e = 1068) 0.30 K/UL ABSOLUTE EOSINOPHILS (test c ode = 1040) 0.03 K/UL ABSOLUTE BASOPHILS (test cod e = 1069) 0.07 K/UL ABS IMMATURE GRANULOCYTES (t est code = 1020) 0.01 K/UL ABS NUCLEATED RBCS (test cod e = 19340) 0.00 K/UL CBC W/AUTO [id number] 00:00:00* Test Item Value Reference Range Interpretation Comme nts WBC (test code = 1001) 5.7 K/UL [...] = 1013) 1.2 % IMMATURE GRANULOCYTES (test code = 1036) 0.2 % NUCLEATED RBCS (test code = 1065) 0.0 /100WBC'S PLATELET COUNT (test code = 1015) 277 K/UL ABSOLUTE NEUTROPHILS (test c ode = 1066) 4.10 K/UL ABSOLUTE LYMPHOCYTES (test c ode = 1067) 1.21 K/UL ABSOLUTE MONOCYTES (test cod e = 1068) 0.30 K/UL ABSOLUTE EOSINOPHILS (test c ode = 1040) 0.03 K/UL ABSOLUTE BASOPHILS (test cod e = 1069) 0.07 K/UL ABS IMMATURE GRANULOCYTES (t est code = 1020) 0.01 K/UL ABS NUCLEATED RBCS (test cod e = 79258) 0.00 K/UL CBC W/AUTO [id number] 00:00:00* Test Item Value Reference Range Interpretation Comme nts WBC (test code = 1001) 5.7 K/UL [...] = 1013) 1.2 % IMMATURE GRANULOCYTES (test code = 1036) 0.2 % NUCLEATED RBCS (test code = 1065) 0.0 /100WBC'S PLATELET COUNT (test code = 1015) 277 K/UL ABSOLUTE NEUTROPHILS (test c ode = 1066) 4.10 K/UL ABSOLUTE LYMPHOCYTES (test c ode = 1067) 1.21 K/UL ABSOLUTE MONOCYTES (test cod e = 1068) 0.30 K/UL ABSOLUTE EOSINOPHILS (test c ode = 1040) 0.03 K/UL ABSOLUTE BASOPHILS (test cod e = 1069) 0.07 K/UL ABS IMMATURE GRANULOCYTES (t est code = 1020) 0.01 K/UL ABS NUCLEATED RBCS (test cod e = 54311) 0.00 K/UL HEMOGLOBIN [id number] 00:00:00* Test Item Value Reference Range Interpretation Comme nts HEMOGLOBIN A1c (test code = 14721) 6.4 % HEMOGLOBIN [id number] 00:00:00* Test Item Value Reference Range Interpretation Comme nts HEMOGLOBIN A1c (test code = 31342) 6.4 % HEMOGLOBIN [id number] 00:00:00* Test Item Value Reference Range Interpretation Comme nts HEMOGLOBIN A1c (test code = 84742) 6.4 % CBC W/AUTO [id number] 00:00:00* Test Item Value Reference Range Interpretation Comme nts WBC (test code = 1001) 5.7 K/UL [...] = 1013) 1.2 % IMMATURE GRANULOCYTES (test code = 1036) 0.2 % NUCLEATED RBCS (test code = 1065) 0.0 /100WBC'S PLATELET COUNT (test code = 1015) 277 K/UL ABSOLUTE NEUTROPHILS (test c ode = 1066) 4.10 K/UL ABSOLUTE LYMPHOCYTES (test c ode = 1067) 1.21 K/UL ABSOLUTE MONOCYTES (test cod e = 1068) 0.30 K/UL ABSOLUTE EOSINOPHILS (test c ode = 1040) 0.03 K/UL ABSOLUTE BASOPHILS (test cod e = 1069) 0.07 K/UL ABS IMMATURE GRANULOCYTES (t est code = 1020) 0.01 K/UL ABS NUCLEATED RBCS (test cod e = 97836) 0.00 K/UL CBC W/AUTO [id number] 00:00:00* Test Item Value Reference Range Interpretation Comme nts WBC (test code = 1001) 5.7 K/UL [...] = 1013) 1.2 % IMMATURE GRANULOCYTES (test code = 1036) 0.2 % NUCLEATED RBCS (test code = 1065) 0.0 /100WBC'S PLATELET COUNT (test code = 1015) 277 K/UL ABSOLUTE NEUTROPHILS (test c ode = 1066) 4.10 K/UL ABSOLUTE LYMPHOCYTES (test c ode = 1067) 1.21 K/UL ABSOLUTE MONOCYTES (test cod e = 1068) 0.30 K/UL ABSOLUTE EOSINOPHILS (test c ode = 1040) 0.03 K/UL ABSOLUTE BASOPHILS (test cod e = 1069) 0.07 K/UL ABS IMMATURE GRANULOCYTES (t est code = 1020) 0.01 K/UL ABS NUCLEATED RBCS (test cod e = 37277) 0.00 K/UL CBC W/AUTO [id number] 00:00:00* Test Item Value Reference Range Interpretation Comme nts WBC (test code = 1001) 5.7 K/UL [...] = 1013) 1.2 % IMMATURE GRANULOCYTES (test code = 1036) 0.2 % NUCLEATED RBCS (test code = 1065) 0.0 /100WBC'S PLATELET COUNT (test code = 1015) 277 K/UL ABSOLUTE NEUTROPHILS (test c ode = 1066) 4.10 K/UL ABSOLUTE LYMPHOCYTES (test c ode = 1067) 1.21 K/UL ABSOLUTE MONOCYTES (test cod e = 1068) 0.30 K/UL ABSOLUTE EOSINOPHILS (test c ode = 1040) 0.03 K/UL ABSOLUTE BASOPHILS (test cod e = 1069) 0.07 K/UL ABS IMMATURE GRANULOCYTES (t est code = 1020) 0.01 K/UL ABS NUCLEATED RBCS (test cod e = 37784) 0.00 K/UL C-ARM<1 HR W IMAGES*WW*2022-01-05 15:46:44 [facility] : 1970 Sex: FFluoroscopyLocation Code: [id number] HISTORY: SURGICAL PROCEDURE , Back painComments: Fluoroscopy was provided during sympathetic nerve block. Approximately fluoroscopy time was 32.6 seconds. 3 images were obtained.IMPRESSION: Fluoroscopy services provided. Please see operative report for full details.Electronically signed by: Gabriele Castaneda MD 01/05/2022 3:46 PM CDT [id number] URINE MONOCLONAL *WW*2022-01-05 11:24:00* Test Item Value Reference Range Interpretation Comme nts PREG UR (test code = PGU) NEGATIVE NEGATIVE CBC WITH [id number] 12:44:09* Test Item Value Reference Range Interpretation Comme nts WBC (test code = 6690-2) See_Comment H [Automated [employer]] The system which generated this result transmitted reference range: 4.30 - 11.10 10*3/?L. The reference range was not used to interpret this result as normal/abnormal. RBC (test code = 789-8) See_Comment L [Automated [employer] ge] The system which generated this result transmitted reference range: 3.93 - 5.25 10*6/?L. The reference range was not used to interpret this result as normal/abnormal. HGB (test code = 718-7) 10.3 g/dL 11.6-15.0 L HCT (test code = 4544-3) 33.1 % 35.7-45.2 L MCV (test code = 787-2) 86.6 fL 80.6-95.5 MCH (test code = 785-6) 27.0 pg 25.9-32.8 MCHC (test code = 786-4) 31.1 g/dL 31.6-35.1 L RDW-SD (test code = 87795-9) 49.5 fL 39.0-49.9 RDW-CV (test code = 788-0) 15.5 % 12.0-15.5 PLT (test code = 777-3) See_Comment H [Automated messa ge] The system which generated this result transmitted reference range: 166 - 358 10*3/?L. The reference range was not used to interpret this result as normal/abnormal. MPV (test code = 40965-1) 10.3 fL 9.5-12.9 NRBC/100 WBC (test code = 6465027919) See_Comment [Automated [employer] ssage] The system which generated this result transmitted reference range: 0.0 - 10.0 /100 WBCs. The reference range was not used to interpret this result as normal/abnormal. NRBC x10^3 (test code = 6911583672) See_Comment [Automated messa ge] The system which generated this result transmitted reference range: 10*3/?L. The reference range was not used to interpret this result as normal/abnormal. GRAN MAT (NEUT) % (test code = 770-8) 64.4 % IMM GRAN % (test code = 6285720009) 3.60 % LYMPH % (test code = 736-9) 23.5 % MONO % (test code = 5905-5) 7.3 % EOS % (test code = 713-8) 0.9 % BASO % (test code = 706-2) 0.3 % GRAN MAT x10^3(ANC) (test code = 7845301646) 7.19 10*3/uL 1.88-7.09 H IMM GRAN x10^3 (test code = 4369013346) 0.40 10*3/uL 0.00-0.06 H LYMPH x10^3 (test code = 731-0) 2.63 10*3/uL 1.32-3.29 MONO x10^3 (test code = 742-7) 0.82 10*3/uL 0.33-0.92 EOS x10^3 (test code = 711-2) 0.10 10*3/uL 0.03-0.39 BASO x10^3 (test code = 704-7) 0.03 10*3/uL 0.01-0.07 POLYCHROMASIA (test code = 10777-5) 2+ See_Comment [Automated [employer] ge] The system which generated this result transmitted reference range: 2+. The reference range was not used to interpret this result as normal/abnormal. GIANT PLATELETS (test code = 5908-9) Present See_Comment A [Automated [employer]] The system which generated this result transmitted reference range: (none). The reference range was not used to interpret this result as normal/abnormal. Lab Interpretation (test code = 53192-4) [facility] [id number] 10:06:53* Test Item Value Reference Range Interpretation Comme nts NT-proBNP (test code = 1403930706) 117 pg/mL See_Comment [Automated message] The system which generated this result transmitted reference range: <=125. The reference range was not used to interpret this result as normal/abnormal. LUCILLE (test code = LUCILLE) Biotin has been reported to cause a negative bias, interpret results relative to patient's use of biotin. Lab Interpretation (test code = 77100-9) Normal [facility] (50309)2021-12-07 10:02:35* Test Item Value Reference Range Interpretation Comme nts NA (test code = 7151962789) 140 mmol/L 135-145 K (test code = 0383195338) 3.7 mmol/L 3.5-5.0 CL (test code = 0210454202) 104 mmol/L 98-108 CO2 TOTAL (test code = 6437426828) 31 mmol/L 23-31 AGAP (test code = 2198814975) 2-16 BUN (test code = 5164958623) 21 mg/dL 7-23 GLUCOSE (test code = 5035071814) 91 mg/dL 70-110 CREATININE (test code = 8079793320) 1.00 mg/dL 0.50-1.04 TOTAL BILI (test code = 1442223449) 0.3 mg/dL 0.1-1.1 CALCIUM (test code = 6518143979) 8.1 mg/dL 8.6-10.6 L T PROTEIN (test code = 9370276668) 5.9 g/dL 6.3-8.2 L ALBUMIN (test code = 4091234598) 3.4 g/dL 3.5-5.0 L ALK PHOS (test code = 6848716295) 87 U/L 34-122 ALTv (test code = 1742-6) 39 U/L 5-35 H AST(SGOT) (test code = 3582343335) 24 U/L 13-40 eGFR (test code = 7950346814) mL/min/1.73m2 LUCILLE (test code = LUCILLE) Association [...] imaging tests). Lab Interpretation (test code = 05040-3) [facility]normal [facility] 10:02:35* Test Item Value Reference Range Interpretation Comme nts MAGNESIUM (test code = 3723445718) 2.2 mg/dL 1.7-2.4 Lab Interpretation (test cod e = 50465-9) Normal [facility] B12, [id number] 22:18:47* Test Item Value Reference Range Interpretation Comme nts VIT B12 (test code = 9394542661) 979 pg/mL 240-930 H LUCILLE (test code = LUCILLE) Biotin has been reported to cause a positive bias, interpret results relative to patient's use of biotin. Lab Interpretation (test code = 16483-6) Abnormal [facility]PROCAL[facility]IN2022-04-05 21:47:27* Test Item Value Reference Range Interpretation Comme nts Procalcitonin (test code = 9790892874) 0.05 ng/mL <0.07 LUCILLE (test code = LUCILLE) INTERPRETATION OF [...] lung abscess/empyema. For further information please refer to:[email or web address] Lab Interpretation (test code = 21743-5) Normal [facility] Hospital[facility] D, [id number] 20:41:30* Test Item Value Reference Range Interpretation Comme nts VIT D 25OH (test code = 67198-6) <13 25-80 L LUCILLE (test code = LUCILLE) Deficiency: <20 ng/mLInsufficiency: 20-24 ng/mLOptimal: 25-80 ng/mL Lab Interpretation (test code = 11828-3) [facility]normal [facility] HospitalDIFF CON[facility]ULT [id number] 20:04:06 LEUKOCYTOSIS WITH ABSOLUTE NEUTROPHILIA AND INCREASED IMMATURE GRANULOCYTES/LEFT SHIFT, CONSISTENT WITH PATIENT'S KNOWN INFECTION. NORMOCYTIC, NORMOCHROMIC ANEMIA. MILD THROMBOCYTOSIS.[facility] [id number] 18:31:30* Test Item Value Reference Range Interpretation Comme nts FREE T3 (test code = 2894247994) 2.49 pg/mL 2.77-5.27 L Lab Interpretation (test cod e = 20260-1) Abnormal [facility]-REACTIVE [id number] 17:54:11* Test Item Value Reference Range Interpretation Comme nts CRP (test code = 2634236546) 0.2 mg/dL <0.8 Lab Interpretation (test cod e = 83407-3) [facility] [id number] 13:49:44* Test Item Value Reference Range Interpretation Comme nts FREE T4 (test code = 0067151891) See_Comment L [Automated messa ge] The system which generated this result transmitted reference range: 0.78 - 2.20 ng/dL:. The reference range was not used to interpret this result as normal/abnormal. Lab Interpretation (test code = 47768-4) Abnormal [facility] WITH [id number] 12:20:38* Test Item Value Reference Range Interpretation Comme nts WBC (test code = 6690-2) See_Comment H [Automated message] The system which generated this result transmitted reference range: 4.30 - 11.10 10*3/?L. The reference range was not used to interpret this result as normal/abnormal. RBC (test code = 789-8) See_Comment L [Automated message] The system which generated this result transmitted reference range: 3.93 - 5.25 10*6/?L. The reference range was not used to interpret this result as normal/abnormal. HGB (test code = 718-7) 9.7 g/dL 11.6-15.0 L HCT (test code = 4544-3) 30.5 % 35.7-45.2 L MCV (test code = 787-2) 86.2 fL 80.6-95.5 MCH (test code = 785-6) 27.4 pg 25.9-32.8 MCHC (test code = 786-4) 31.8 g/dL 31.6-35.1 RDW-SD (test code = 09305-6) 48.5 fL 39.0-49.9 RDW-CV (test code = 788-0) 15.3 % 12.0-15.5 PLT (test code = 777-3) See_Comment [Automated message] The system which generated this result transmitted reference range: 166 - 358 10*3/?L. The reference range was not used to interpret this result as normal/abnormal. MPV (test code = 72460-4) 10.4 fL 9.5-12.9 NRBC/100 WBC (test code = 7096860967) See_Comment [Automated message] The system which generated this result transmitted reference range: 0.0 - 10.0 /100 WBCs. The reference range was not used to interpret this result as normal/abnormal. NRBC x10^3 (test code = 1485478155) See_Comment [Automated message] The system which generated this result transmitted reference range: 10*3/?L. The reference range was not used to interpret this result as normal/abnormal. GRAN MAT (NEUT) % (test code = 770-8) 74.0 % IMM GRAN % (test code = 9558891657) 3.20 % LYMPH % (test code = 736-9) 14.7 % MONO % (test code = 5905-5) 7.7 % EOS % (test code = 713-8) 0.1 % BASO % (test code = 706-2) 0.3 % GRAN MAT x10^3(ANC) (test code = 2066667850) 11.18 10*3/uL 1.88-7.09 H IMM GRAN x10^3 (test code = 9062096980) 0.48 10*3/uL 0.00-0.06 H LYMPH x10^3 (test code = 731-0) 2.22 10*3/uL 1.32-3.29 MONO x10^3 (test code = 742-7) 1.17 10*3/uL 0.33-0.92 H EOS x10^3 (test code = 711-2) <0.03 0.03-0.39 L BASO x10^3 (test code = 704-7) 0.04 10*3/uL 0.01-0.07 Lab Interpretation (test code = 70639-7) [facility]normal [facility]FERRITIN [id number] 11:45:10* Test Item Value Reference Range Interpretation Comme nts FERRITIN (test code = 3147883390) 16.1 ng/mL 11.0-264.0 LUCILLE (test code = LUCILLE) Biotin has been reported to cause a negative bias, interpret results relative to patient's use of biotin. Lab Interpretation (test code = 55561-5) Normal [facility] HospitalTHYROID STIMULATING [id number] 11:41:28 * Test Item Value Reference Range Interpretation Comme nts TSH (test code = 2809704524) See_Comment L [Automated messa ge] The system which generated this result transmitted reference range: 0.45 - 4.70 mIU/L. The reference range was not used to interpret this result as normal/abnormal. Lab Interpretation (test code = 46265-3) Abnormal [facility] HospitalSEDIMENTATION [id number] 11:30:34* Test Item Value Reference Range Interpretation Comme nts ESR (test code = 9719510419) See_Comment [Automated messa ge] The system which generated this result transmitted reference range: 0 - 20 mm/HR. The reference range was not used to interpret this result as normal/abnormal. Lab Interpretation (test code = 87268-4) Normal [facility] HospitalTROPONIN [id number] 11:30:08* Test Item Value Reference Range Interpretation Comments TROPONIN I (test code = 3233439197) 0.023 ng/mL See_Comment [Automated message] The system which generated this result transmitted reference range: <=0.034. The reference range was not used to interpret this result as normal/abnormal. LUCILLE (test code = LUCILLE) Reference (Normal) [...] patient's use of biotin. Lab Interpretation (test code = 56428-2) Normal [facility]. METABOLIC PANEL (66960)2021-12-06 11:28:58* Test Item Value Reference Range Interpretation Comme nts NA (test code = 6448826015) 140 mmol/L 135-145 K (test code = 4661810409) 3.1 mmol/L 3.5-5.0 L CL (test code = 6441222910) 106 mmol/L 98-108 CO2 TOTAL (test code = 4790537613) 31 mmol/L 23-31 AGAP (test code = 9586551660) 2-16 BUN (test code = 7283486321) 24 mg/dL 7-23 H GLUCOSE (test code = 5036110026) 88 mg/dL 70-110 CREATININE (test code = 6460580771) 0.95 mg/dL 0.50-1.04 TOTAL BILI (test code = 5600267111) 0.3 mg/dL 0.1-1.1 CALCIUM (test code = 3932779763) 8.4 mg/dL 8.6-10.6 L T PROTEIN (test code = 6823114307) 5.7 g/dL 6.3-8.2 L ALBUMIN (test code = 0565112470) 3.3 g/dL 3.5-5.0 L ALK PHOS (test code = 1570133102) 83 U/L 34-122 ALTv (test code = 1742-6) 44 U/L 5-35 H AST(SGOT) (test code = 4215478737) 27 U/L 13-40 eGFR (test code = 3067158744) mL/min/1.73m2 LUCILLE (test code = LUCILLE) Association [...] imaging tests). Lab Interpretation (test code = 28222-3) [facility]normal [facility] HospitalN-[facility]MINAL [id number] 11:26:47* Test Item Value Reference Range Interpretation Comme nts NT-proBNP (test code = 8198812541) 442 pg/mL See_Comment H [Automated message] The system which generated this result transmitted reference range: <=125. The reference range was not used to interpret this result as normal/abnormal. LUCILLE (test code = LUCILLE) Biotin has been reported to cause a negative bias, interpret results relative to patient's use of biotin. Lab Interpretation (test code = 89583-8) Abnormal [facility] HospitalIRON [id number] 11:19:22* Test Item Value Reference Range Interpretation Comme nts IRON (test code = 9328902988) 34 ug/dL 50-160 L TIBC (test code = 3537389540) 408 ug/dL 250-410 % FE SAT (test code = 8143709978) 8 % 20-50 L Lab Interpretation (test cod e = 55081-8) Abnormal [facility] HospitalMAGNESIUM2022-04-05 11:18:47* Test Item Value Reference Range Interpretation Comme nts MAGNESIUM (test code = 1041731874) 1.9 mg/dL 1.7-2.4 Lab Interpretation (test cod e = 08754-3) Normal [facility] HospitalPHOSPHORUS2022-04-05 11:18:02* Test Item Value Reference Range Interpretation Comme nts PHOSPHORUS (test code = 3938549614) 3.3 mg/dL 2.5-5.0 Lab Interpretation (test cod e = 66407-6) Normal [facility] HospitalLIPID PANEL (02860)(TOTAL CHOLESTEROL, TRIGLYCERIDES, HDL)2021-12-06 11:09:41* Test Item Value Reference Range Interpretation Comme nts CHOL (test code = 6481499908) 208 mg/dL 120-200 H HDL (test code = 7731124538) 99 mg/dL >50 HDLC RATIO (test code = 7486210329) See_Comment [Automated [employer]] The system which generated this result transmitted reference range: <=4.5. The reference range was not used to interpret this result as normal/abnormal. TRIG (test code = 1445777929) 172 mg/dL 30-170 H LDL CHOL (test code = 63062-7) 75 mg/dL See_Comment [Automated [employer]] The system which generated this result transmitted reference range: <=160. The reference range was not used to interpret this result as normal/abnormal. VLDL (test code = 4029774821) 34 mg/dL 5-60 Lab Interpretation (test code = 77390-3) Abnormal [facility] HospitalURIC [id number] 11:09:21* Test Item Value Reference Range Interpretation Comme nts URIC ACID (test code = 7662453643) 6.1 mg/dL 2.9-6.0 H Lab Interpretation (test cod e = 08384-7) Abnormal [facility] HospitalGLYCOSYLATED HEMOGLOBIN (A1C)2021-12-06 08:48:15* Test Item Value Reference Range Interpretation Comme nts HGB A1C (test code = 4548-4) 5.7 % 4.0-5.7 LUCILLE (test code = LUCILLE) Reference RangesNormal: <5.7%Prediabetes: 5.7 - 6.4%Diabetes: > 6.5% Lab Interpretation (test code = 57453-0) Normal [facility] HospitalCBC WITH [id number] 01:01:58* Test Item Value Reference Range Interpretation Comme nts WBC (test code = 6690-2) See_Comment H [Automated message] The system which generated this result transmitted reference range: 4.30 - 11.10 10*3/?L. The reference range was not used to interpret this result as normal/abnormal. RBC (test code = 789-8) See_Comment L [Automated message] The system which generated this result transmitted reference range: 3.93 - 5.25 10*6/?L. The reference range was not used to interpret this result as normal/abnormal. HGB (test code = 718-7) 10.6 g/dL 11.6-15.0 L HCT (test code = 4544-3) 32.9 % 35.7-45.2 L MCV (test code = 787-2) 84.4 fL 80.6-95.5 MCH (test code = 785-6) 27.2 pg 25.9-32.8 MCHC (test code = 786-4) 32.2 g/dL 31.6-35.1 RDW-SD (test code = 62174-2) 46.4 fL 39.0-49.9 RDW-CV (test code = 788-0) 15.2 % 12.0-15.5 PLT (test code = 777-3) See_Comment H [Automated message] The system which generated this result transmitted reference range: 166 - 358 10*3/?L. The reference range was not used to interpret this result as normal/abnormal. MPV (test code = 15398-3) 10.6 fL 9.5-12.9 NRBC/100 WBC (test code = 7792762617) See_Comment [Automated message] The system which generated this result transmitted reference range: 0.0 - 10.0 /100 WBCs. The reference range was not used to interpret this result as normal/abnormal. NRBC x10^3 (test code = 4005296082) See_Comment [Automated message] The system which generated this result transmitted reference range: 10*3/?L. The reference range was not used to interpret this result as normal/abnormal. SEG % (test code = 91859-3) 83 % 33-76 H BAND % (test code = 77607-5) 4 % 0-1 H LYMPH % (test code = 50282-9) 7 % 14-54 L MONO % (test code = 33239-5) 5 % 0-4 H EOS % (test code = 65796-7) 1 % 0-3 ANC (test code = 753-4) 19.01 10*3/uL 1.88-7.09 H TOXIC CHANGES (test code = 803-7) Present A Lab Interpretation (test code = 02156-0) [facility]normal [facility] HospitalTROPONIN [id number] 00:45:54* Test Item Value Reference Range Interpretation Comments TROPONIN I (test code = 8066638607) 0.022 ng/mL See_Comment [Automated message] The system which generated this result transmitted reference range: <=0.034. The reference range was not used to interpret this result as normal/abnormal. LUCILLE (test code = LUCILLE) Reference (Normal) [...] patient's use of biotin. Lab Interpretation (test code = 29312-7) Normal [facility] HospitalN-TERMINAL [id number] 00:42:51* Test Item Value Reference Range Interpretation Comme nts NT-proBNP (test code = 5172280267) 544 pg/mL See_Comment H [Automated message] The system which generated this result transmitted reference range: <=125. The reference range was not used to interpret this result as normal/abnormal. LUCILLE (test code = LUCILLE) Biotin has been reported to cause a negative bias, interpret results relative to patient's use of biotin. Lab Interpretation (test code = 83007-6) Abnormal [facility] HospitalACTIVATED PARTIAL THRMPLAS [id number] 00:36:33* Test Item Value Reference Range Interpretation Comme nts APTT Patient (test code = 3173-2) See_Comment L [Automated message] The system which generated this result transmitted reference range: 23 - 38 Seconds. The reference range was not used to interpret this result as normal/abnormal. LUCILLE (test code = LUCILLE) The [facility] patient population mean normal value for aPTT is 30 seconds. Lab Interpretation (test code = 56743-2) Abnormal [facility] HospitalPROTHROMBIN TIME / [id number] 00:34:31* Test Item Value Reference Range Interpretation Comme [facility] PROTIME PATIENT (test code = 5964-2) See_Comment [Automated Funideliaa ge] The system which generated this result transmitted reference range: 12.0 - 14.7 Seconds. The reference range was not used to interpret this result as normal/abnormal. INR (test code = 6301-6) Normal INR <1.1; Warfarin Therapeutic range 2.0 to 3.0 or 2.5 to 3.5, depending upon the indications. Lab Interpretation (test code = 45278-4) Normal [facility] HospitalCOMP. METABOLIC PANEL (09718)2021-12-06 00:34:11* Test Item Value Reference Range Interpretation Comme [facility] NA (test code = 7762692187) 141 mmol/L 135-145 K (test code = 5418467445) 3.9 mmol/L 3.5-5.0 CL (test code = 6850770991) 104 mmol/L 98-108 CO2 TOTAL (test code = 4042364377) 27 mmol/L 23-31 AGAP (test code = 0908297297) 2-16 BUN (test code = 7280268674) 24 mg/dL 7-23 H GLUCOSE (test code = 2931685010) 117 mg/dL 70-110 H CREATININE (test code = 0895329227) 0.96 mg/dL 0.50-1.04 TOTAL BILI (test code = 1057952002) 0.4 mg/dL 0.1-1.1 CALCIUM (test code = 2850007267) 8.9 mg/dL 8.6-10.6 T PROTEIN (test code = 5352071613) 6.5 g/dL 6.3-8.2 ALBUMIN (test code = 3293843427) 4.0 g/dL 3.5-5.0 ALK PHOS (test code = 0189447941) 107 U/L 34-122 ALTv (test code = 1742-6) 49 U/L 5-35 H AST(SGOT) (test code = 8381410878) 44 U/L 13-40 H eGFR (test code = 8076508805) mL/min/1.73m2 LUCILLE (test code = LUCILLE) Association [...] imaging tests). Lab Interpretation (test code = 37841-7) Abnormal [facility] HospitalPROCALCITONIN2022-04-04 02:29:14* Test Item Value Reference Range Interpretation Comme nts Procalcitonin (test code = 7874934710) 0.11 ng/mL <0.08 H LUCILLE (test code = LUCILLE) INTERPRETATION OF [...] lung abscess/empyema. For further information please refer to:[email or web address] Lab Interpretation (test code = 20817-2) Abnormal [facility] HospitalLactic Acid Whole [id number] 15:26:51* Test Item Value Reference Range Interpretation Comme nts LACTIC ACID (test code = 6975339799) 2.36 mmol/L 0.50-2.20 H Lab Interpretation (test cod e = 16696-3) Abnormal [facility] HospitalCB with [id number] 09:45:08* Test Item Value Reference Range Interpretation Comme nts WBC (test code = 6690-2) See_Comment H [Automated message] The system which generated this result transmitted reference range: 4.30 - 11.10 10*3/?L. The reference range was not used to interpret this result as normal/abnormal. RBC (test code = 789-8) See_Comment L [Automated message] The system which generated this result transmitted reference range: 3.93 - 5.25 10*6/?L. The reference range was not used to interpret this result as normal/abnormal. HGB (test code = 718-7) 10.0 g/dL 11.6-15.0 L HCT (test code = 4544-3) 31.2 % 35.7-45.2 L MCV (test code = 787-2) 87.2 fL 80.6-95.5 MCH (test code = 785-6) 27.9 pg 25.9-32.8 MCHC (test code = 786-4) 32.1 g/dL 31.6-35.1 RDW-SD (test code = 80144-8) 48.3 fL 39.0-49.9 RDW-CV (test code = 788-0) 15.2 % 12.0-15.5 PLT (test code = 777-3) See_Comment [Automated message] The system which generated this result transmitted reference range: 166 - 358 10*3/?L. The reference range was not used to interpret this result as normal/abnormal. MPV (test code = 55164-5) 10.3 fL 9.5-12.9 NRBC/100 WBC (test code = 6998913683) See_Comment [Automated message] The system which generated this result transmitted reference range: 0.0 - 10.0 /100 WBCs. The reference range was not used to interpret this result as normal/abnormal. NRBC x10^3 (test code = 8698223981) See_Comment [Automated message] The system which generated this result transmitted reference range: 10*3/?L. The reference range was not used to interpret this result as normal/abnormal. GRAN MAT (NEUT) % (test code = 770-8) 90.3 % IMM GRAN % (test code = 7173844793) 1.20 % LYMPH % (test code = 736-9) 5.8 % MONO % (test code = 5905-5) 2.6 % EOS % (test code = 713-8) 0.0 % BASO % (test code = 706-2) 0.1 % GRAN MAT x10^3(ANC) (test code = 9443321490) 19.89 10*3/uL 1.88-7.09 H IMM GRAN x10^3 (test code = 7715883591) 0.27 10*3/uL 0.00-0.06 H LYMPH x10^3 (test code = 731-0) 1.28 10*3/uL 1.32-3.29 L MONO x10^3 (test code = 742-7) 0.57 10*3/uL 0.33-0.92 EOS x10^3 (test code = 711-2) <0.03 0.03-0.39 L BASO x10^3 (test code = 704-7) 0.03 10*3/uL 0.01-0.07 POLYCHROMASIA (test code = 84603-3) 2+ See_Comment [Automated message] The system which generated this result transmitted reference range: 2+. The reference range was not used to interpret this result as normal/abnormal. TOXIC CHANGES (test code = 803-7) Present A Lab Interpretation (test code = 33867-7) Abnormal [facility] Metabolic Panel (NA, K, CL, CO2, GLUCOSE, BUN, CREATININE, CA)2021-12-04 09:38:00* Test Item Value Reference Range Interpretation Comme nts NA (test code = 6847411466) 137 mmol/L 135-145 K (test code = 0303773942) 3.7 mmol/L 3.5-5.0 CL (test code = 7536470567) 107 mmol/L 98-108 CO2 TOTAL (test code = 3475050920) 21 mmol/L 23-31 L AGAP (test code = 5992483234) 2-16 BUN (test code = 7719621539) 19 mg/dL 7-23 GLUCOSE (test code = 6759011256) 149 mg/dL 70-110 H CREATININE (test code = 7245346603) 1.00 mg/dL 0.50-1.04 CALCIUM (test code = 8592776229) 8.8 mg/dL 8.6-10.6 eGFR (test code = 7698076111) mL/min/1.73m2 LUCILLE (test code = LUCILLE) Association [...] imaging tests). Lab Interpretation (test code = 95541-4) [facility] [id number] 09:20:11* Test Item Value Reference Range Interpretation Comme nts LACTIC ACID (test code = 2214981166) 3.77 mmol/L 0.50-2.20 H Lab Interpretation (test cod e = 28144-5) [facility]normal [facility]URINALYSIS2022-04-02 23:35:41* Test Item Value Reference Range Interpretation Comme nts APPEARANCE (test code = 2831279407) Clear Clear COLOR (test code = 1029873101) Yellow Yellow PH (test code = 5365260528) 4.8-8.0 SP GRAVITY (test code = 6637432327) 1.003-1.030 GLU U QUAL (test code = 9725529688) Normal Normal BLOOD (test code = 7620588927) Negative Negative Interference fro m ascorbic acid may cause false negative results. KETONES (test code = 4831265147) Negative Negative PROTEIN (test code = 2887-8) Negative Negative UROBILIN (test code = 5446683502) Normal Normal BILIRUBIN (test code = 5947685993) Negative Negative NITRITE (test code = 2879263476) Negative Negative [place] (test code = 3054844178) Negative Negative RBC/HPF (test code = 5117498901) See_Comment [Automated messa ge] The system which generated this result transmitted reference range: 0 - 3 HPF. The reference range was not used to interpret this result as normal/abnormal. WBC/HPF (test code = 3715594574) See_Comment [Automated messa ge] The system which generated this result transmitted reference range: 0 - 5 HPF. The reference range was not used to interpret this result as normal/abnormal. BACTERIA (test code = 3097754717) Negative Negative SQ EPITH (test code = 4204547732) See_Comment H [Automated messa ge] The system which generated this result transmitted reference range: <=2 HPF. The reference range was not used to interpret this result as normal/abnormal. Lab Interpretation (test code = 41465-1) [facility]normal [facility] WITH [id number] 21:54:52* Test Item Value Reference Range Interpretation Comme nts WBC (test code = 6690-2) See_Comment H [Automated message] The system which generated this result transmitted reference range: 4.30 - 11.10 10*3/?L. The reference range was not used to interpret this result as normal/abnormal. RBC (test code = 789-8) See_Comment L [Automated message] The system which generated this result transmitted reference range: 3.93 - 5.25 10*6/?L. The reference range was not used to interpret this result as normal/abnormal. HGB (test code = 718-7) 10.1 g/dL 11.6-15.0 L HCT (test code = 4544-3) 32.0 % 35.7-45.2 L MCV (test code = 787-2) 86.5 fL 80.6-95.5 MCH (test code = 785-6) 27.3 pg 25.9-32.8 MCHC (test code = 786-4) 31.6 g/dL 31.6-35.1 RDW-SD (test code = 03447-2) 48.1 fL 39.0-49.9 RDW-CV (test code = 788-0) 15.3 % 12.0-15.5 PLT (test code = 777-3) See_Comment [Automated message] The system which generated this result transmitted reference range: 166 - 358 10*3/?L. The reference range was not used to interpret this result as normal/abnormal. MPV (test code = 04499-5) 10.1 fL 9.5-12.9 NRBC/100 WBC (test code = 9492515478) See_Comment [Automated message] The system which generated this result transmitted reference range: 0.0 - 10.0 /100 WBCs. The reference range was not used to interpret this result as normal/abnormal. NRBC x10^3 (test code = 9622137779) See_Comment [Automated message] The system which generated this result transmitted reference range: 10*3/?L. The reference range was not used to interpret this result as normal/abnormal. GRAN MAT (NEUT) % (test code = 770-8) 90.9 % IMM GRAN % (test code = 6902408124) 0.80 % LYMPH % (test code = 736-9) 6.4 % MONO % (test code = 5905-5) 1.8 % EOS % (test code = 713-8) 0.0 % BASO % (test code = 706-2) 0.1 % GRAN MAT x10^3(ANC) (test code = 9283507486) 17.07 10*3/uL 1.88-7.09 H IMM GRAN x10^3 (test code = 4163168615) 0.15 10*3/uL 0.00-0.06 H LYMPH x10^3 (test code = 731-0) 1.20 10*3/uL 1.32-3.29 L MONO x10^3 (test code = 742-7) 0.34 10*3/uL 0.33-0.92 EOS x10^3 (test code = 711-2) <0.03 0.03-0.39 L BASO x10^3 (test code = 704-7) <0.03 0.01-0.07 TOXIC CHANGES (test code = 803-7) Present A Lab Interpretation (test code = 98924-5) [facility]normal [facility]AL [id number] 21:47:46* Test Item Value Reference Range Interpretation Comme nts NT-proBNP (test code = 5298195647) 662 pg/mL See_Comment H [Automated message] The system which generated this result transmitted reference range: <=125. The reference range was not used to interpret this result as normal/abnormal. LUCILLE (test code = LUCILLE) Biotin has been reported to cause a negative bias, interpret results relative to patient's use of biotin. Lab Interpretation (test code = 78021-4) [facility]normal [facility]TR[facility] [id number] 21:47:46* Test Item Value Reference Range Interpretation Comments TROPONIN I (test code = 6026240040) 0.007 ng/mL See_Comment [Automated message] The system which generated this result transmitted reference range: <=0.034. The reference range was not used to interpret this result as normal/abnormal. LUCILLE (test code = LUCILLE) Reference (Normal) [...] patient's use of biotin. Lab Interpretation (test code = 55558-6) Normal [facility] HospitalAMYLASE2022-04-02 21:36:08* Test Item Value Reference Range Interpretation Comme nts KIERA (test code = 7816687331) 66 U/L 35-110 Lab Interpretation (test cod e = 94263-2) Normal [facility] HospitalLIPASE2022-04-02 21:36:08* Test Item Value Reference Range Interpretation Comme nts LIPASE (test code = 6239363405) 83 U/L 0-220 Lab Interpretation (test cod e = 53558-1) Normal [facility] HospitalCOMP. METABOLIC PANEL (11211)2021-12-03 21:36:08* Test Item Value Reference Range Interpretation Comme nts NA (test code = 9689308508) 137 mmol/L 135-145 K (test code = 7657789938) 4.5 mmol/L 3.5-5.0 CL (test code = 8078588037) 107 mmol/L 98-108 CO2 TOTAL (test code = 9111058282) 20 mmol/L 23-31 L AGAP (test code = 0294995068) 2-16 BUN (test code = 4997654082) 20 mg/dL 7-23 GLUCOSE (test code = 9744042320) 140 mg/dL 70-110 H CREATININE (test code = 4306970524) 0.97 mg/dL 0.50-1.04 TOTAL BILI (test code = 2541347978) 0.3 mg/dL 0.1-1.1 CALCIUM (test code = 1934045889) 8.9 mg/dL 8.6-10.6 T PROTEIN (test code = 0593427959) 7.1 g/dL 6.3-8.2 ALBUMIN (test code = 5917094698) 4.3 g/dL 3.5-5.0 ALK PHOS (test code = 8021872782) 97 U/L 34-122 ALTv (test code = 1742-6) 56 U/L 5-35 H AST(SGOT) (test code = 5815485567) 38 U/L 13-40 eGFR (test code = 2743211673) mL/min/1.73m2 LUCILLE (test code = LUCILLE) Association [...] imaging tests). Lab Interpretation (test code = 23963-6) [facility] [id number] 21:21:29* Test Item Value Reference Range Interpretation Comme nts PH (test code = 2) 7.35-7.45 PCO2 (test code = 2147960298) See_Comment L [Automated [employer]] The system which generated this result transmitted reference range: 35 - 45 mmHg. The reference range was not used to interpret this result as normal/abnormal. PO2 (test code = 1805629855) See_Comment [Automated messa ge] The system which generated this result transmitted reference range: 80 - 100 mmHg. The reference range was not used to interpret this result as normal/abnormal. HCO3 (test code = 3284168643) See_Comment [Automated [employer]] The system which generated this result transmitted reference range: 22 - 26 mEq/L. The reference range was not used to interpret this result as normal/abnormal. BE (test code = 7917535826) See_Comment [Automated [employer]] The system which generated this result transmitted reference range: -3.0 - 3.0 mEq/L. The reference range was not used to interpret this result as normal/abnormal. LACTIC ACID (test code = 5353266312) 2.96 mmol/L 0.50-2.20 H Lab Interpretation (test code = 04992-0) Abnormal [facility] Metabolic Panel (NA, K, CL, CO2, GLUCOSE, BUN, CREATININE, CA)2021-11-10 09:40:55* Test Item Value Reference Range Interpretation Comme nts NA (test code = 0796681144) 138 mmol/L 135-145 K (test code = 2670311785) 3.4 mmol/L 3.5-5.0 L CL (test code = 5791214963) 107 mmol/L 98-108 CO2 TOTAL (test code = 8550177452) 25 mmol/L 23-31 AGAP (test code = 1129364456) 2-16 BUN (test code = 5615125956) 15 mg/dL 7-23 GLUCOSE (test code = 1519677093) 110 mg/dL 70-110 CREATININE (test code = 8823515923) 0.81 mg/dL 0.50-1.04 CALCIUM (test code = 2387937918) 7.8 mg/dL 8.6-10.6 L eGFR (test code = 5047637641) mL/min/1.73m2 LUCILLE (test code = LUCILLE) Association [...] imaging tests). Lab Interpretation (test code = 35418-5) Abnormal [facility] with Ogohhzaklrsc0121-27-84 09:25:30* Test Item Value Reference Range Interpretation Comme nts WBC (test code = 6690-2) See_Comment H [[employer]] The system which generated this result transmitted reference range: 4.30 - 11.10 10*3/?L. The reference range was not used to interpret this result as normal/abnormal. RBC (test code = 789-8) See_Comment L [[employer]] The system which generated this result transmitted reference range: 3.93 - 5.25 10*6/?L. The reference range was not used to interpret this result as normal/abnormal. HGB (test code = 718-7) 9.7 g/dL 11.6-15.0 L HCT (test code = 4544-3) 31.7 % 35.7-45.2 L MCV (test code = 787-2) 93.5 fL 80.6-95.5 MCH (test code = 785-6) 28.6 pg 25.9-32.8 MCHC (test code = 786-4) 30.6 g/dL 31.6-35.1 L RDW-SD (test code = 81089-8) 57.2 fL 39.0-49.9 H RDW-CV (test code = 788-0) 17.0 % 12.0-15.5 H PLT (test code = 777-3) See_Comment [Automated messa ge] The system which generated this result transmitted reference range: 166 - 358 10*3/?L. The reference range was not used to interpret this result as normal/abnormal. MPV (test code = 25026-2) 9.2 fL 9.5-12.9 L NRBC/100 WBC (test code = 0374198201) See_Comment [Automated [employer] ssage] The system which generated this result transmitted reference range: 0.0 - 10.0 /100 WBCs. The reference range was not used to interpret this result as normal/abnormal. NRBC x10^3 (test code = 3912134972) See_Comment [Automated messa ge] The system which generated this result transmitted reference range: 10*3/?L. The reference range was not used to interpret this result as normal/abnormal. GRAN MAT (NEUT) % (test code = 770-8) 72.2 % IMM GRAN % (test code = 4019602542) 1.30 % LYMPH % (test code = 736-9) 18.9 % MONO % (test code = 5905-5) 6.3 % EOS % (test code = 713-8) 1.2 % BASO % (test code = 706-2) 0.1 % GRAN MAT x10^3(ANC) (test code = 1878500675) 8.06 10*3/uL 1.88-7.09 H IMM GRAN x10^3 (test code = 6310043964) 0.14 10*3/uL 0.00-0.06 H LYMPH x10^3 (test code = 731-0) 2.10 10*3/uL 1.32-3.29 MONO x10^3 (test code = 742-7) 0.70 10*3/uL 0.33-0.92 EOS x10^3 (test code = 711-2) 0.13 10*3/uL 0.03-0.39 BASO x10^3 (test code = 704-7) <0.03 0.01-0.07 Lab Interpretation (test code = 97284-8) [facility]normal [facility] Whole Uzwco2530-04-53 09:22:39* Test Item Value Reference Range Interpretation Comme [facility] LACTIC ACID (test code = 8750219632) 3.32 mmol/L 0.50-2.20 H Lab Interpretation (test cod e = 65312-7) Abnormal [facility] THRMPLAS [id number] 02:13:42* Test Item Value Reference Range Interpretation Comme [facility] APTT Patient (test code = 3173-2) See_Comment L [Automated [employer] ge] The system which generated this result transmitted reference range: 26 - 36 Seconds. The reference range was not used to interpret this result as normal/abnormal. Lab Interpretation (test code = 60087-7) Abnormal [facility] Hospital[facility] / [id number] 02:13:42* Test Item Value Reference Range Interpretation Comme [facility] PROTIME PATIENT (test code = 5964-2) See_Comment [Automated [employer]] The system which generated this result transmitted reference range: 10.1 - 12.6 Seconds. The reference range was not used to interpret this result as normal/abnormal. INR (test code = 6301-6) Normal INR <1.1; Warfarin Therapeutic range 2.0 to 3.0 or 2.5 to 3.5, depending upon the indications. Lab Interpretation (test code = 38714-3) Normal [facility]-RZNTV2589-32-93 02:13:42* Test Item Value Reference Range Interpretation Comments D-DIMER (test code = 9601501616) See_Comment H [Automated message] The system which generated this result transmitted reference range: <0.50 ?g/mL (FEU). The reference range was not used to interpret this result as normal/abnormal. LUCILLE (test code = LUCILLE) This test may be used in conjunction with a clinical pretest [...] context, in forming a diagnosis. Lab Interpretation (test code = 43824-1) Abnormal [facility]. METABOLIC PANEL (61857)2021-11-10 01:57:17* Test Item Value Reference Range Interpretation Comme nts NA (test code = 9663519639) 139 mmol/L 135-145 K (test code = 8913535161) 3.9 mmol/L 3.5-5.0 CL (test code = 6650253285) 106 mmol/L 98-108 CO2 TOTAL (test code = 3346334345) 27 mmol/L 23-31 AGAP (test code = 9894220039) 2-16 BUN (test code = 6210732889) 17 mg/dL 7-23 GLUCOSE (test code = 0362618984) 135 mg/dL 70-110 H CREATININE (test code = 1676118229) 0.72 mg/dL 0.50-1.04 TOTAL BILI (test code = 5371615224) 0.3 mg/dL 0.1-1.1 CALCIUM (test code = 8515860755) 8.1 mg/dL 8.6-10.6 L T PROTEIN (test code = 5830658869) 5.6 g/dL 6.3-8.2 L ALBUMIN (test code = 8494722637) 3.3 g/dL 3.5-5.0 L ALK PHOS (test code = 7689036735) 126 U/L 34-122 H ALTv (test code = 1742-6) 47 U/L 5-35 H AST(SGOT) (test code = 3458790475) 27 U/L 13-40 eGFR (test code = 1897038830) mL/min/1.73m2 LUCILLE (test code = LUCILLE) Association [...] imaging tests). Lab Interpretation (test code = 96051-6) [facility]normal [facility]IC QYLV9182-06-14 01:51:44* Test Item Value Reference Range Interpretation Comme nts PH (test code = 2) 7.35-7.45 PCO2 (test code = 3796859793) See_Comment [Automated [employer] ge] The system which generated this result transmitted reference range: 35 - 45 mmHg. The reference range was not used to interpret this result as normal/abnormal. PO2 (test code = 0733810219) See_Comment L [Automated messa ge] The system which generated this result transmitted reference range: 80 - 100 mmHg. The reference range was not used to interpret this result as normal/abnormal. HCO3 (test code = 6859826626) See_Comment [Automated messa ge] The system which generated this result transmitted reference range: 22 - 26 mEq/L. The reference range was not used to interpret this result as normal/abnormal. BE (test code = 8066343173) See_Comment [Automated [employer] ge] The system which generated this result transmitted reference range: -3.0 - 3.0 mEq/L. The reference range was not used to interpret this result as normal/abnormal. LACTIC ACID (test code = 4950708878) 4.25 mmol/L 0.50-2.20 H QUES Lab Interpretation (test code = 70172-6) Abnormal [facility] WITH [id number] 01:50:58* Test Item Value Reference Range Interpretation Comme nts WBC (test code = 6690-2) See_Comment H [Automated message] The system which generated this result transmitted reference range: 4.30 - 11.10 10*3/?L. The reference range was not used to interpret this result as normal/abnormal. RBC (test code = 789-8) See_Comment L [Automated message] The system which generated this result transmitted reference range: 3.93 - 5.25 10*6/?L. The reference range was not used to interpret this result as normal/abnormal. HGB (test code = 718-7) 9.9 g/dL 11.6-15.0 L HCT (test code = 4544-3) 31.7 % 35.7-45.2 L MCV (test code = 787-2) 91.9 fL 80.6-95.5 MCH (test code = 785-6) 28.7 pg 25.9-32.8 MCHC (test code = 786-4) 31.2 g/dL 31.6-35.1 L RDW-SD (test code = 38031-5) 55.7 fL 39.0-49.9 H RDW-CV (test code = 788-0) 16.8 % 12.0-15.5 H PLT (test code = 777-3) See_Comment [Automated message] The system which generated this result transmitted reference range: 166 - 358 10*3/?L. The reference range was not used to interpret this result as normal/abnormal. MPV (test code = 52204-5) 9.5 fL 9.5-12.9 NRBC/100 WBC (test code = 4988846196) See_Comment [Automated message] The system which generated this result transmitted reference range: 0.0 - 10.0 /100 WBCs. The reference range was not used to interpret this result as normal/abnormal. NRBC x10^3 (test code = 6394845091) <0.01 See_Comment [Automated message] The system which generated this result transmitted reference range: 10*3/?L. The reference range was not used to interpret this result as normal/abnormal. GRAN MAT (NEUT) % (test code = 770-8) 84.7 % IMM GRAN % (test code = 6897095969) 0.80 % LYMPH % (test code = 736-9) 10.9 % MONO % (test code = 5905-5) 3.4 % EOS % (test code = 713-8) 0.1 % BASO % (test code = 706-2) 0.1 % GRAN MAT x10^3(ANC) (test code = 3222533532) 11.84 10*3/uL 1.88-7.09 H IMM GRAN x10^3 (test code = 2485281451) 0.11 10*3/uL 0.00-0.06 H LYMPH x10^3 (test code = 731-0) 1.52 10*3/uL 1.32-3.29 MONO x10^3 (test code = 742-7) 0.47 10*3/uL 0.33-0.92 EOS x10^3 (test code = 711-2) <0.03 0.03-0.39 L BASO x10^3 (test code = 704-7) <0.03 0.01-0.07 Lab Interpretation (test code = 09662-5) Abnormal [facility] [id number] 21:38:57* Test Item Value Reference Range Interpretation Comme nts Case Report (test code = 3363519471) Non-Gynecologic Cytology ?Case: [id number] ?Authorizing Provider: ?Anaya Kline MD ? ? Collected: ? 10/21/2021 1249 ?Ordering Location: ? ? [facility] ?Received: ?10/21/2021 1257 ? Medicine/Surgery [facility] 7B ?Pathologist: ? Nawgiri, Glenna Valero, MD ? Specimen: ? ?LUNG, LEFT UPPER LOBE, BRONCHOALVEOLAR LAVAGE ? Final Diagnosis (test code = 1358130977) w7jsmAPbJNYga9uqKZOqcFXt ZzEwMzNcZnRuYmpcdWMxIHtc cnRmMVxlcGljOTYwMVxhbnNp TANmyUNwO5AweylbHPpqVH8y JL1vaLiccDSorGFkVWDmInHk l8mbt803kVUer7zdUDBDlwra fRx4pRhrE76ll6K1WflrH0gr ZWQwXGdyZWVuMFxibHVlMDt9 XHBhcGVydzEyMjQwXHBhcGVy cQX5XLWhKC9pudqdMEqpLGmi VROherO5JSYurRIaK9RjRLDx IX7gxvglVDO5CUdyERRpAFQ9 QaVxXYLcq6Zenxu5IhJqyUZs ZFxwbGFpblxmczIwXHBhclxi IEExLiAgTFVORywgTEVGVCBV DUMAErCQV5ALSjXRMm8PW4pC RCkLWR3PIORqZDSWNFcPJgzw MDGsRjKsTVVsVithRpHfSt1z EOWJEEpFGI5AMDWWTNfDKChI XE0HIUVECJNdXAmrXWReF6FT ATSNAO0RNoIjCSWvekcqViOc qSFhxBufdfYbBDxoz1IzR0Fb MjAwMFxhbnNpXGRlZmxhbmcx PFGtQSA1dhVfDZTqJTjhMDTf FGemDj0kjRBkpXvcPgQsJUBc f0mrxkGBWZwcZoSzA155GVAl SWpfq8ttm5CrITEhgCUgz5L1 VMQPjisviRx2g6yiBdGaZjY5 pDWwVGrpB6opvbKmxKFkS9Oi yUTvlGp2gRbbM35qr0Z2Wdpt L5fmOZQgTTLyX0EkPD5sURZw Gbm5SFC0ZOG2RDGwFRNbO8Zl TH4tOGMjwIRtPPm0b4mzhKqn YZSlOGW8o9dfZUmguoK4TN0o ao9spHk1d8aoqrHuYLNnDXQl fEUORMDgN1VywAbvVq3mxOn2 iHfnXsqmMIQ5Yoy6NV0oei34 mih2zAkaAVNzvnmcIbD8JIxg CROkaenxTZf3XTkjSMUiuRA1 RHQmfPIdK0SzOQXqZD4qraq6 HRB1JNckWHRbSmN0DHAjmNGt MPSueSbsBLjcz283DHW3OnDu CQ7sF8Qyb8V1hZ2fqSFwJLNh fQVxIiPnJEJqho0ynWLsIJnc f3UoDOM6uwJ5kZClgOWeLUGv BR09Qkknl0DoXgurJJQ5NCUz inEry5Zux7pnWcJwpuLqM9of D1VqALSiBMRrVEKgTqAfpjHl c6Hku8NlkJXpvSz9p3nkDSAq WLWetRksv5mqPNW9SJHiL3V0 hJIvv5enKTbqHRZzuQA6xaI5 AQBlbDFyK8HilQ2yMVCeYN7z wyj8n8tzPWI0BTwtKQGxWoL3 wzR7KYQfzBHmKXKwgGilOWdk y434NHB9DzYyHOHcj6DkK1On gZehM54bfFzyT00jYGDboXbp rH2oaBbnbM6oBwFhFkPhMMtr bFxwbGFpblxmMVxmczIwXGxh kxxxJFTzBPepP9xfAfFnEZOb eFbdJHsrf4AtTMOjTRVaBbxl czIwXHBhciBJIGhhdmUgcGVy y08kWCvzrJQaIJJxNHscGFXr lEuee1LkT8ihQR5oZ5VsqQJm eqRspcOmZGohAVIix9e0iITi uOakc8UmkHEeGJ84efXyWELf FYZ3BWEnp9faOE81rdinOuZg oX12xySeynHmOVZzv2mvH1vk bLZof0Bge8ObvfEkKFkhr8Kx SI3dhFDwybttlVD1NIRcrDBo ovJyggH4aRviXDMsdF4luH6f iOuwtO1cPoTmSeYdQSaeXQ4r FWLwA8gwsYAjVOOsTUXsQ5wn ZpYtvP2llBpgMblenaL6UBTo cn19 Final Diagnosis Comment (test code = 9886137444) h8gyiXSuCHXgrXK8RjSkJUQx k1lsn3HetTAibWTtGLsgbUAz fvDoht61zNA2dW47AD4fJRVq CeC3NKGcwxR2Bdj4CFIqMTRr jDClS455v8hxz0ckbtMmaWA7 ZTYyKBBwM7GxYB2gOLKkpXKw Q02jjHIcVXM1NBOyWPFbbSBx ZTGfZME3FBAooQDdY6xxGRZn PQ1bmuveXVnaTLzsQNMklLL3 UMFcaISgM7WiGFIsFOsnRWYn byb6JeFmFg5ygWSefVeoRKoo IXBuWDYpZDsnPRAgSpNoI32x EATzPHQqk3jbgX8wxGy6EDGe i57hmT9oISZmhZgzdUhniREj TUmzxyFrhoUjPeQ6UJCjlpLc sIFnDS4tK6PkcWwrB0PmQnRU VFWpVAwbu2XyZQ4bVVY8fEKz YvWutpM0jM9jyVNtmzGcQVUk BhUjY5WyHB9rWM9kaFmgvpZl dCBjZWxscyBpZGVudGlmaWVk MyxvHJSoE5GdBMDsse5= Clinical Information (test code = 5751862758) 1. Pneumonia / covid / SARS Gross Description (test code = 5681790181) i9qszOExYIWlqXV0XmCbXCFf n8usq6MwzRWfoOUyQRrnzFFr etLdqt03hZI2iV69SY7nURXg ErF7CRRvesT0Sua3YBFhXRCb dGGcY214q3jia9pvfaRcmFT8 YMLiHCFbU5LzAR9bYVRnfZUe F22xnZNlQPU7HLKtOIPbcSFt ECDrGAW4FZLdpTRrQ4dxSSCe GD7ubnlzXSalSCtlTDZrwPP6 KXHgkMFbW7RbYGMeSYaeBHMj axo0QmHuIc0pxOWycGrxEDhj MHCbh0sbYXViuVOqPYH5WPsg oYPrINHfBTLnOYe1KOOvDRlr uHTgXF9vqDsiWjawoXsil5Nw dCBcXGlkIDUxMDAyIFxcZGIg F7ILYGSzKyZlWlu9IDDrHXi4 NMu9BZ0IDnEsBANyNok7KOKi EoYuHEj4LQyrKU4OSLX6VjV2 JHJyBnrfSNCcRuMzHKv5RDGx XFxmbCBcXGYgQXJpYWwgXFxm pwLyDTSdJL2mzHogsNJlilbp czIwXHBhclxmczIyXHBhciBB CU4dVAfQUyjvEZvWIiKtGMUO RRRbOZ6GUHijPkUDBeUUG1OP VkVPTEFSIExBVkFHRVxwYXJc BeCpCKixXsPwYtRkNRr6IHIy DuIaq6qodTHpG0QmzpSdRVTv cOWtCKY0RJShN5Vso0LeK6ry WSAcMln1tPJlvtEtJKa4XIWn KgWai7sbqQXpSUPlZGHyssPj QMDod1wxRELyJXwUeDJya0Xo pwLafiOzEMEkaTrqpzX1QLGq Jz4ySP3xa1SwhDSalgUtUIMI HKIlyutpn7knr5Fyz9MxeV5f ZClcZnMyMlxjZjAgIHtcZXBp U6DaM1EiqaZ8p2tfuVkbe8Qz jEGoXJ1hpXZpzS== Disclaimer (test code = 1471216987) m8eakRCtVWMiw2klOTMjpLPk ZzEwMzNcZnRuYmpcdWMxIHtc beFzBQehp6MkL2VmDtFlRGcj bnNpXGRlZmxhbmcxMDMzXGZ0 mqIjQCBbVKtkEUGhAYtvFs4d oDWncHhqCzGxCJEpg8mbpvDS DLlxJaFoD359ZVKcTRvro5od n1KlIMUwbECca5Y1ZXNVhuum sUq5mGafV22zm4R6WghlJ8sy JOXxBQBvU0NaFZ5qLIBcErn0 DMH5QGY7UPQhXABqC0QbNZ3b BORpcVZfGRc0z8zllJhhGYJn HDM5e9veXEemxgNrEV3riu5y uYo9a1vfqlGrSDPyQZTrmIDQ MHSyW9CweCwwBk7xqWs8pTld BkehZOS6Txu1JB3kpl30nyh1 eSbxPZQpvwesZdV3WSubRMNb kcdyRZj6MRgyJULlpKM8IZHs ePTsZ6KpQUSrHI5bgzx5FOA2 ROhtDCFnEaD8XKSsgJKxHUBt zBtfTTjuj850YHI5XbKiRN5y F3Xcd0G8oA5qiWObFWJdlUGi EzHmEJUxuz6woPOyZXwbs3Sm EXQ8gvS1uHMnnEAeFETjTP41 Qonlu7LpUctpo3YfI14pdKP0 FSjrj7ywON0xYmO7taSxYRte u2udoM5dRsN5DXvvTW7vNU4j PTZtdB4xsmjcLKWpTxOzndrk CDLvaBlcntKkGk2geGrzPSH3 ACpkX8ikbJ1vPxU0JXsoZ2rv dB6lXAj7YSvhqUY5UNMwyM2l JK6ywurys7qyHGxuWDipLFQw jkX0dfA0VSZijLOqM8QsgB5i UOEsJT0yymfha3lnACB4HUvo SLGoJPG6KkCdLZXyg4Tmiak1 IpSqf2CywCBcZTswY93fz120 FODaswFbP4iybDFmcumenEJm zbfdATcvrjG0DACikzYuy5Wj PDElTAK0CMhxAKzsfUNuLJFo kRgvt7ssL0YlpOItYHQmKYau XGYxXGZzMjBcbGFuZzEwMzNc aGljaFxmMVxkYmNoXGYxXGxv X4faVtAeT8VsHECfUiSvvKQd G5ucSBopmgReSWUcykNkpOZ4 UVcgD8u2YURoqkDmsCu8zcLr JgVoTWVvMHO0CWpymLUzLCNl c7AnotvzjYGyOe9qcRJnJYPj qC2uXGEnYMNkCYmvRA3xuXx1 SZKBnLHmuMXgYqBLEGPcBF01 tyDzOIVPcqaih2S7PKozZRWq q9HxvSOkU2etl9MvQBEzf94e CW6fo6I2q9okRZK0EL7xm3Qk VCTxdYBqtUBxLUQos5Nvqkms a8JpNNTxjbJnz4YnAPHvxaWs bSXsJUTuolXnun6koqFdEKEr IBJxU0JspyytkCyxgdKzPAFf dt9cykOjMWV3OMPGNUNxNSCx f6UzkS0weGOYLEB4nHUayw8q xyJNvRAuMRPewm76WGGmXD7q G8tfTRNdSTMbtmEfpVVit4Uo ADEiyQJ2fTOmYF3TEpDJx03k IGFuZCBEcnVnIEFkbWluaXN0 tkP7sL0dJRtGAPBgLfl+IFRo OKOOVUUqXO8bfbGiz3McevTq qFvzSIQmwROmi6PqjIEvp8Gw yOoef7AwtEQrsWQqBO4iSKCi clxwYXIgVVRNQiBMYWJvcmF0 j0CrWHAqLTZgWXH1uLcdxjh2 RHPlsB5pLEPzX8bullruCFik DOMeq6OnjB1szOWClBWxc4Lo zVRxyEOIhGGjCS3rasWmBNaN AJfETRM1wgOpPSOmg8MjRIdw X8xsS23pmJcixCj3hLK9ZCG5 lK0pSrl+IFxwYXJccGFyIEFw eBBtkIAzMTFbqRxmcwPmC8Gq uhNkvQ1cxNWsevZcGH7lEN5h X6X1mEBwTJLciaIbd6kwIChs dmUgYmVlbiByZXZpZXdlZCBm j3HeFKscRPD1PRrnhmMrdmCc dWRpbmcgSCZFLCBTcGVjaWFs OQU0FJurcyDuwlOfWY9sxM5s wMwqiE5rxDVawYJ0gkrfXHDy DTBaoQprLFYwCI4hqTPjZRZr giWKfJacsPHmwI6uY8BgAFAl MLJhqn4cIFYxtD8dOMcwh0Ti bkanRERnXRSzAZAcubBhyi6f CGZbnIKKVN7HMGvftNFik9Bx tuOkA5hDRWA0JLDxMeOtBjqj XBLbaIDrpBDdIKRhji89CPDn iG4etPybUHEkrE9eoP2wwQrj xY3iJwYiYdXuWOudAL4uDRFk Q8xrlDRoMJZyFWHqO3hdGuWn vP1noMpeKNutXdLdVrErZBec YXJ9fQ== Embedded Images (test code = 5687768860) [facility] [id number] 20:07:20* Test Item Value Reference Range Interpretation Comme nts SHIRA (test code = 9368629122) Negative Negative LUCILLE (test code = LUCILLE) Negative - [...] performed and reported separately. Lab Interpretation (test code = 32751-4) Normal [facility] (NA, K, CL, CO2, GLUCOSE, BUN, CREATININE, CA)2021-10-24 13:05:02* Test Item Value Reference Range Interpretation Comme nts NA (test code = 7917233800) 134 mmol/L 135-145 L K (test code = 6245278842) 4.5 mmol/L 3.5-5.0 CL (test code = 4692428546) 99 mmol/L 98-108 CO2 TOTAL (test code = 2229066053) 30 mmol/L 23-31 AGAP (test code = 2269090296) 2-16 BUN (test code = 8334074006) 23 mg/dL 7-23 GLUCOSE (test code = 6490871994) 118 mg/dL 70-110 H CREATININE (test code = 0443411591) 0.71 mg/dL 0.50-1.04 CALCIUM (test code = 3600551321) 8.2 mg/dL 8.6-10.6 L eGFR (test code = 3145886725) mL/min/1.73m2 LUCILLE (test code = LUCILLE) Association [...] imaging tests). Lab Interpretation (test code = 05721-6) Abnormal [facility] METABOLIC PANEL (NA, K, CL, CO2, GLUCOSE, BUN, CREATININE, CA)2021-10-24 13:05:02* Test Item Value Reference Range Interpretation Comme nts NA (test code = 1012213561) 134 mmol/L 135-145 L K (test code = 8339114317) 4.5 mmol/L 3.5-5.0 CL (test code = 8512197580) 99 mmol/L 98-108 CO2 TOTAL (test code = 4746577086) 30 mmol/L 23-31 AGAP (test code = 5631460572) 2-16 BUN (test code = 9967744089) 23 mg/dL 7-23 GLUCOSE (test code = 1003826211) 118 mg/dL 70-110 H CREATININE (test code = 4997673486) 0.71 mg/dL 0.50-1.04 CALCIUM (test code = 4575033702) 8.2 mg/dL 8.6-10.6 L eGFR (test code = 1681262845) mL/min/1.73m2 LUCILLE (test code = LUCILLE) Association [...] imaging tests). Lab Interpretation (test code = 84788-9) Abnormal [facility] WITHOUT [id number] 12:51:39* Test Item Value Reference Range Interpretation Comme nts WBC (test code = 6690-2) See_Comment H [Automated message] The system which generated this result transmitted reference range: 4.30 - 11.10 10*3/?L. The reference range was not used to interpret this result as normal/abnormal. RBC (test code = 789-8) See_Comment [Automated message] The system which generated this result transmitted reference range: 3.93 - 5.25 10*6/?L. The reference range was not used to interpret this result as normal/abnormal. HGB (test code = 718-7) 11.5 g/dL 11.6-15.0 L HCT (test code = 4544-3) 35.2 % 35.7-45.2 L MCH (test code = 785-6) 27.9 pg 25.9-32.8 MCV (test code = 787-2) 85.4 fL 80.6-95.5 MCHC (test code = 786-4) 32.7 g/dL 31.6-35.1 PLT (test code = 777-3) See_Comment H [Automated message] The system which generated this result transmitted reference range: 166 - 358 10*3/?L. The reference range was not used to interpret this result as normal/abnormal. MPV (test code = 33995-6) 10.1 fL 9.5-12.9 RDW-CV (test code = 788-0) 14.2 % 12.0-15.5 RDW-SD (test code = 84927-0) 43.8 fL 39.0-49.9 NRBC x10^3 (test code = 1469060451) See_Comment [Automated messa ge] The system which generated this result transmitted reference range: 10*3/?L. The reference range was not used to interpret this result as normal/abnormal. NRBC/100 WBC (test code = 3920436161) See_Comment [Automated messa ge] The system which generated this result transmitted reference range: 0.0 - 10.0 /100 WBCs. The reference range was not used to interpret this result as normal/abnormal. IPF % (test code = 3678850996) Lab Interpretation (test code = 02654-9) Abnormal [facility] WITHOUT [id number] 12:51:39* Test Item Value Reference Range Interpretation Comme nts WBC (test code = 6690-2) See_Comment H [Automated message] The system which generated this result transmitted reference range: 4.30 - 11.10 10*3/?L. The reference range was not used to interpret this result as normal/abnormal. RBC (test code = 789-8) See_Comment [Automated message] The system which generated this result transmitted reference range: 3.93 - 5.25 10*6/?L. The reference range was not used to interpret this result as normal/abnormal. HGB (test code = 718-7) 11.5 g/dL 11.6-15.0 L HCT (test code = 4544-3) 35.2 % 35.7-45.2 L MCH (test code = 785-6) 27.9 pg 25.9-32.8 MCV (test code = 787-2) 85.4 fL 80.6-95.5 MCHC (test code = 786-4) 32.7 g/dL 31.6-35.1 PLT (test code = 777-3) See_Comment H [Automated message] The system which generated this result transmitted reference range: 166 - 358 10*3/?L. The reference range was not used to interpret this result as normal/abnormal. MPV (test code = 65249-0) 10.1 fL 9.5-12.9 RDW-CV (test code = 788-0) 14.2 % 12.0-15.5 RDW-SD (test code = 56174-7) 43.8 fL 39.0-49.9 NRBC x10^3 (test code = 4609666741) See_Comment [Automated messa ge] The system which generated this result transmitted reference range: 10*3/?L. The reference range was not used to interpret this result as normal/abnormal. NRBC/100 WBC (test code = 2231170788) See_Comment [Automated messa ge] The system which generated this result transmitted reference range: 0.0 - 10.0 /100 WBCs. The reference range was not used to interpret this result as normal/abnormal. IPF % (test code = 6185003847) Lab Interpretation (test code = 89818-6) Abnormal [facility] HospitalMYCOBACTERIUM TUBERCULOSIS COMPLEX PCR 2021-10-23 16:23:29* Test Item Value Reference Range Interpretation Comme nts Mycobacterium tuberculosis DNA (test code = 91782-7) Negative Negative LUCILLE (test code = LUCILLE) Method performance specifications have not been established for specimens other than SPUTUM. Results for other tested specimen types should be interpreted based on clinical context. Lab Interpretation (test code = 63803-4) Normal [facility] HospitalMYCOBACTERIUM TUBERCULOSIS COMPLEX PCR 2021-10-23 16:23:29* Test Item Value Reference Range Interpretation Comme nts Mycobacterium tuberculosis DNA (test code = 52597-0) Negative Negative LUCILLE (test code = LUCILLE) Method performance specifications have not been established for specimens other than SPUTUM. Results for other tested specimen types should be interpreted based on clinical context. Lab Interpretation (test code = 69700-9) Normal [facility] HospitalRESPIRATORY PANEL BY [id number] 20:36:40* Test Item Value Reference Range Interpretation Comme nts Adenovirus (test code = 60363-1) Negative Negative Coronavirus HKU1 (test code = 50930-6) Negative Negative Coronavirus NL63 (test code = 74944-6) Negative Negative Coronavirus 229E (test code = 33969-6) Negative Negative Coronavirus OC43 (test code = 15581-5) Negative Negative Human Metapneumovirus (test code = 83483-7) Negative Negative Human Rhinovirus/Enterovirus (test code = 83627-4) Negative Negative Influenza A (test code = 24205-9) Negative Negative Influenza B (test code = 17926-3) Negative Negative Parainfluenza Virus 1 (test code = 03117-3) Negative Negative Parainfluenza Virus 2 (test code = 25807-3) Negative Negative Parainfluenza Virus 3 (test code = 74493-4) Negative Negative Parainfluenza Virus 4 (test code = 61739-6) Negative Negative Respiratory Syncytial Virus (test code = 88391-6) Negative Negative Bordetella parapertussis (test code = 07257-4) Negative Negative Bordetella pertussis (test code = 89113-2) Negative Negative Chlamydia pneumoniae (test code = 25326-3) Negative Negative Mycoplasma pneumoniae (test code = 09368-3) Negative Negative LUCILLE (test code = LUCILLE) Negative:A negativ e result does not rule-out infection. ?This assay does not test for all potential infectious agents. ? Positive:A positive test result does not necessarily indicate the presence of viable organism. ? Lab Interpretation (test code = 30820-1) [facility] [id number] 20:36:40* Test Item Value Reference Range Interpretation Comme nts Adenovirus (test code = 01946-8) Negative Negative Coronavirus HKU1 (test code = 83588-2) Negative Negative Coronavirus NL63 (test code = 52524-6) Negative Negative Coronavirus 229E (test code = 06101-9) Negative Negative Coronavirus OC43 (test code = 74312-8) Negative Negative Human Metapneumovirus (test code = 08366-9) Negative Negative Human Rhinovirus/Enterovirus (test code = 14091-7) Negative Negative Influenza A (test code = 36784-9) Negative Negative Influenza B (test code = 59700-8) Negative Negative Parainfluenza Virus 1 (test code = 69440-9) Negative Negative Parainfluenza Virus 2 (test code = 97992-6) Negative Negative Parainfluenza Virus 3 (test code = 61147-2) Negative Negative Parainfluenza Virus 4 (test code = 96751-6) Negative Negative Respiratory Syncytial Virus (test code = 83053-1) Negative Negative Bordetella parapertussis (test code = 65158-7) Negative Negative Bordetella pertussis (test code = 19168-1) Negative Negative Chlamydia pneumoniae (test code = 81808-7) Negative Negative Mycoplasma pneumoniae (test code = 00894-4) Negative Negative LUCILLE (test code = LUCILLE) Negative:A negativ e result does not rule-out infection. ?This assay does not test for all potential infectious agents. ? Positive:A positive test result does not necessarily indicate the presence of viable organism. ? Lab Interpretation (test code = 29736-0) Normal [facility] HospitalANTI[facility]NUCLEAR ANTIBODY-PATHOLOGIST [id number] 19:52:54ANA - Pathologist InterpretationANA HEp-2 IIFA Pathologist [...] 20-30% of individuals without a systemic autoimmune rheumaticdisease and is thus not considered to be clinically significant. In contrast, a titer greater than o r equal to 1:160 is generally considered to [...] female gender. Clinical correlation is recommended. ? (https://pubmed.ncbi.nlm.nih.gov/52668967/) ? If the patient's clinical condition changes/progresses, repeating the SHIRA screen at a future time may be informative due to the evolving nature of systemic rheumatic diseases. ? ? A diagnosis cannot be based exclusively on SHIRA detection and/or pattern and thus should be made via the integration of patient history, physical exam findings, and other diagnostic tests as clinically indicated. Juanis Mata MD ?10/22/2021 ?1:52 PM [facility]AT[facility] SERVICESUT [facility] HospitalANTI-NUCLEAR ANTIBODY- PATHOLOGIST [id number] 19:52:54ANA - Pathologist InterpretationANA HEp-2 IIFA Pathologist [...] 20-30% of individuals without a systemic autoimmune rheumaticdisease and is thus not considered to be clinically significant. In contrast, a titer greater than o r equal to 1:160 is generally considered to [...] female gender. Clinical correlation is recommended. ? (https://pubmed.ncbi.nlm.nih.gov/96030450/) ? If the patient's clinical condition changes/progresses, repeating the SHIRA screen at a future time may be informative due to the evolving nature of systemic rheumatic diseases. ? ? A diagnosis cannot be based exclusively on SHIRA detection and/or pattern and thus should be made via the integration of patient history, physical exam findings, and other diagnostic tests as clinically indicated. Juanis Mata MD ?10/22/2021 ?1:52 PM [facility] SERVICESS[facility] WITH [id number] 11:43:17* Test Item Value Reference Range Interpretation Comme nts WBC (test code = 6690-2) See_Comment H [Automated message] The system which generated this result transmitted reference range: 4.30 - 11.10 10*3/?L. The reference range was not used to interpret this result as normal/abnormal. RBC (test code = 789-8) See_Comment [Automated message] The system which generated this result transmitted reference range: 3.93 - 5.25 10*6/?L. The reference range was not used to interpret this result as normal/abnormal. HGB (test code = 718-7) 11.4 g/dL 11.6-15.0 L HCT (test code = 4544-3) 35.5 % 35.7-45.2 L MCV (test code = 787-2) 88.3 fL 80.6-95.5 MCH (test code = 785-6) 28.4 pg 25.9-32.8 MCHC (test code = 786-4) 32.1 g/dL 31.6-35.1 RDW-SD (test code = 61184-0) 46.8 fL 39.0-49.9 RDW-CV (test code = 788-0) 14.6 % 12.0-15.5 PLT (test code = 777-3) See_Comment H [Automated message] The system which generated this result transmitted reference range: 166 - 358 10*3/?L. The reference range was not used to interpret this result as normal/abnormal. MPV (test code = 22090-6) 10.2 fL 9.5-12.9 NRBC/100 WBC (test code = 4237414566) See_Comment [Automated message] The system which generated this result transmitted reference range: 0.0 - 10.0 /100 WBCs. The reference range was not used to interpret this result as normal/abnormal. NRBC x10^3 (test code = 5500558859) <0.01 See_Comment [Automated message] The system which generated this result transmitted reference range: 10*3/?L. The reference range was not used to interpret this result as normal/abnormal. GRAN MAT (NEUT) % (test code = 770-8) 93.6 % IMM GRAN % (test code = 8638831909) 2.10 % LYMPH % (test code = 736-9) 2.8 % MONO % (test code = 5905-5) 1.4 % EOS % (test code = 713-8) 0.0 % BASO % (test code = 706-2) 0.1 % GRAN MAT x10^3(ANC) (test code = 5672717057) 17.50 10*3/uL 1.88-7.09 H IMM GRAN x10^3 (test code = 6413263907) 0.40 10*3/uL 0.00-0.06 H LYMPH x10^3 (test code = 731-0) 0.53 10*3/uL 1.32-3.29 L MONO x10^3 (test code = 742-7) 0.26 10*3/uL 0.33-0.92 L EOS x10^3 (test code = 711-2) <0.03 0.03-0.39 L BASO x10^3 (test code = 704-7) <0.03 0.01-0.07 TOXIC CHANGES (test code = 803-7) Present A Lab Interpretation (test code = 52762-6) Abnormal [facility] WITH [id number] 11:43:17* Test Item Value Reference Range Interpretation Comme nts WBC (test code = 6690-2) See_Comment H [Automated message] The system which generated this result transmitted reference range: 4.30 - 11.10 10*3/?L. The reference range was not used to interpret this result as normal/abnormal. RBC (test code = 789-8) See_Comment [Automated message] The system which generated this result transmitted reference range: 3.93 - 5.25 10*6/?L. The reference range was not used to interpret this result as normal/abnormal. HGB (test code = 718-7) 11.4 g/dL 11.6-15.0 L HCT (test code = 4544-3) 35.5 % 35.7-45.2 L MCV (test code = 787-2) 88.3 fL 80.6-95.5 MCH (test code = 785-6) 28.4 pg 25.9-32.8 MCHC (test code = 786-4) 32.1 g/dL 31.6-35.1 RDW-SD (test code = 07260-1) 46.8 fL 39.0-49.9 RDW-CV (test code = 788-0) 14.6 % 12.0-15.5 PLT (test code = 777-3) See_Comment H [Automated message] The system which generated this result transmitted reference range: 166 - 358 10*3/?L. The reference range was not used to interpret this result as normal/abnormal. MPV (test code = 46224-4) 10.2 fL 9.5-12.9 NRBC/100 WBC (test code = 6161055037) See_Comment [Automated message] The system which generated this result transmitted reference range: 0.0 - 10.0 /100 WBCs. The reference range was not used to interpret this result as normal/abnormal. NRBC x10^3 (test code = 0368485731) <0.01 See_Comment [Automated message] The system which generated this result transmitted reference range: 10*3/?L. The reference range was not used to interpret this result as normal/abnormal. GRAN MAT (NEUT) % (test code = 770-8) 93.6 % IMM GRAN % (test code = 8895363552) 2.10 % LYMPH % (test code = 736-9) 2.8 % MONO % (test code = 5905-5) 1.4 % EOS % (test code = 713-8) 0.0 % BASO % (test code = 706-2) 0.1 % GRAN MAT x10^3(ANC) (test code = 0491249035) 17.50 10*3/uL 1.88-7.09 H IMM GRAN x10^3 (test code = 0650194698) 0.40 10*3/uL 0.00-0.06 H LYMPH x10^3 (test code = 731-0) 0.53 10*3/uL 1.32-3.29 L MONO x10^3 (test code = 742-7) 0.26 10*3/uL 0.33-0.92 L EOS x10^3 (test code = 711-2) <0.03 0.03-0.39 L BASO x10^3 (test code = 704-7) <0.03 0.01-0.07 TOXIC CHANGES (test code = 803-7) Present A Lab Interpretation (test code = 30412-9) [facility]NA, K, CL, CO2, GLUCOSE, BUN, CREATININE, CA)2021-10-22 11:20:32* Test Item Value Reference Range Interpretation Comme nts NA (test code = 5519633809) 136 mmol/L 135-145 K (test code = 0855215186) 4.3 mmol/L 3.5-5.0 CL (test code = 6928372153) 103 mmol/L 98-108 CO2 TOTAL (test code = 0539872601) 26 mmol/L 23-31 AGAP (test code = 2985490167) 2-16 BUN (test code = 6208724685) 18 mg/dL 7-23 GLUCOSE (test code = 4478478542) 185 mg/dL 70-110 H CREATININE (test code = 7274694809) 0.69 mg/dL 0.50-1.04 CALCIUM (test code = 3704711229) 7.9 mg/dL 8.6-10.6 L eGFR (test code = 4460986663) mL/min/1.73m2 LUCILLE (test code = LUCILLE) Association [...] imaging tests). Lab Interpretation (test code = 53628-3) Abnormal [facility]2022-02-19 11:20:32* Test Item Value Reference Range Interpretation Comme nts MAGNESIUM (test code = 7873895263) 2.2 mg/dL 1.7-2.4 Lab Interpretation (test cod e = 15844-8) Normal [facility] (NA, K, CL, CO2, GLUCOSE, BUN, CREATININE, CA)2021-10-22 11:20:32* Test Item Value Reference Range Interpretation Comme nts NA (test code = 0667655221) 136 mmol/L 135-145 K (test code = 7226346405) 4.3 mmol/L 3.5-5.0 CL (test code = 6659863575) 103 mmol/L 98-108 CO2 TOTAL (test code = 1983995914) 26 mmol/L 23-31 AGAP (test code = 0860643129) 2-16 BUN (test code = 7148147086) 18 mg/dL 7-23 GLUCOSE (test code = 0923086126) 185 mg/dL 70-110 H CREATININE (test code = 8221028527) 0.69 mg/dL 0.50-1.04 CALCIUM (test code = 8116724564) 7.9 mg/dL 8.6-10.6 L eGFR (test code = 8220805036) mL/min/1.73m2 LUCILLE (test code = LUCILLE) Association [...] imaging tests). Lab Interpretation (test code = 19197-8) Abnormal [facility]MAG[facility]2022-02-19 11:20:32* Test Item Value Reference Range Interpretation Comme nts MAGNESIUM (test code = 4583979845) 2.2 mg/dL 1.7-2.4 Lab Interpretation (test cod e = 05442-4) Normal [facility] CULTURE [id number] 23:01:06* Test Item Value Reference Range Interpretation Comme nts Blood Culture-Aerobic (test code = 52163-8) No organisms isolated No growth Previous preliminary verified result was Culture In Progress on 10/16/2021 at 2001 CSTPrevious preliminary verified result was No growth at 24 hours on 10/17/2021 at 1701 CSTPrevious preliminary verified result was No growth at 48 hours on 10/18/2021 at 1701 CSTPrevious preliminary verified result was No growth at 72 hours on 10/19/2021 at 1702 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 Blood Culture-Anaerobic (test code = 36587-0) No organisms isolated No growth Previous preliminary verified result was Culture In Progress on 10/16/2021 at 2001 CSTPrevious preliminary verified result was No growth at 24 hours on 10/17/2021 at 1701 CSTPrevious preliminary verified result was No growth at 48 hours on 10/18/2021 at 1701 CSTPrevious preliminary verified result was No growth at 72 hours on 10/19/2021 at 1702 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 Lab Interpretation (test code = 53923-0) [facility] [id number] 23:01:06* Test Item Value Reference Range Interpretation Comme nts Blood Culture-Aerobic (test code = 39738-4) No organisms isolated No growth Previous preliminary verified result was Culture In Progress on 10/16/2021 at 2002 CSTPrevious preliminary verified result was No growth at 24 hours on 10/17/2021 at 1701 CSTPrevious preliminary verified result was No growth at 48 hours on 10/18/2021 at 1702 CSTPrevious preliminary verified result was No growth at 72 hours on 10/19/2021 at 1702 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 Blood Culture-Anaerobic (test code = 38671-6) No organisms isolated No growth Previous preliminary verified result was Culture In Progress on 10/16/2021 at 2001 CSTPrevious preliminary verified result was No growth at 24 hours on 10/17/2021 at 1701 CSTPrevious preliminary verified result was No growth at 48 hours on 10/18/2021 at 1702 CSTPrevious preliminary verified result was No growth at 72 hours on 10/19/2021 at 1702 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 Lab Interpretation (test code = 28061-2) [facility] CULTURE [id number] 23:01:06* Test Item Value Reference Range Interpretation Comme nts Blood Culture-Aerobic (test code = 91835-3) No organisms isolated No growth Previous preliminary verified result was Culture In Progress on 10/16/2021 at 2002 CSTPrevious preliminary verified result was No growth at 24 hours on 10/17/2021 at 1701 CSTPrevious preliminary verified result was No growth at 48 hours on 10/18/2021 at 1701 CSTPrevious preliminary verified result was No growth at 72 hours on 10/19/2021 at 1702 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 Blood Culture-Anaerobic (test code = 35500-7) No organisms isolated No growth Previous preliminary verified result was Culture In Progress on 10/16/2021 at 2001 CSTPrevious preliminary verified result was No growth at 24 hours on 10/17/2021 at 1701 CSTPrevious preliminary verified result was No growth at 48 hours on 10/18/2021 at 1701 CSTPrevious preliminary verified result was No growth at 72 hours on 10/19/2021 at 1702 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 Lab Interpretation (test code = 78406-1) Normal [facility] CULTURE [id number] 23:01:06* Test Item Value Reference Range Interpretation Comme nts Blood Culture-Aerobic (test code = 89600-7) No organisms isolated No growth Previous preliminary verified result was Culture In Progress on 10/16/2021 at 2002 CSTPrevious preliminary verified result was No growth at 24 hours on 10/17/2021 at 1701 CSTPrevious preliminary verified result was No growth at 48 hours on 10/18/2021 at 1702 CSTPrevious preliminary verified result was No growth at 72 hours on 10/19/2021 at 1702 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 + LACTIC [id number] 20:42:21* Test Item Value Reference Range Interpretation Comme nts PH (test code = 2) 7.35-7.45 PCO2 (test code = 6006455031) See_Comment [Automated messa ge] The system which generated this result transmitted reference range: 35 - 45 mmHg. The reference range was not used to interpret this result as normal/abnormal. PO2 (test code = 8173956521) See_Comment H [Automated messa ge] The system which generated this result transmitted reference range: 80 - 100 mmHg. The reference range was not used to interpret this result as normal/abnormal. HCO3 (test code = 0277073739) See_Comment [Automated messa ge] The system which generated this result transmitted reference range: 22 - 26 mEq/L. The reference range was not used to interpret this result as normal/abnormal. BE (test code = 6961930879) See_Comment [Automated messa ge] The system which generated this result transmitted reference range: -3.0 - 3.0 mEq/L. The reference range was not used to interpret this result as normal/abnormal. THB (test code = 2088415737) 12.1 g/dL 12.0-16.0 %O2HB (test code = 4086162257) 99.5 % 94.0-99.0 H %COHB ART (test code = 8567459634) 0.1 % 0.0-1.5 %METHB ART (test code = 8848163108) 0.1 % 0.4-1.5 L VOL%O2 ART (test code = 5019965151) 17.8 % 15.0-23.0 NA (test code = 3698382473) 135 mmol/L 135-145 K+ (test code = 2287193463) 4.3 mmol/L 3.5-5.0 AC CA IONZ (test code = 0761992742) 4.50 mg/dL 4.50-5.30 GLUCOSE (test code = 9952013085) 108 mg/dL 70-110 LACTIC ACID (test code = 6655341076) 2.19 mmol/L 0.50-2.20 Lab Interpretation (test code = 91617-2) [facility]normal [facility] + LACTIC [id number] 20:42:21* Test Item Value Reference Range Interpretation Comme nts PH (test code = 2) 7.35-7.45 PCO2 (test code = 8574084440) See_Comment [Automated messa ge] The system which generated this result transmitted reference range: 35 - 45 mmHg. The reference range was not used to interpret this result as normal/abnormal. PO2 (test code = 2170666480) See_Comment H [Automated messa ge] The system which generated this result transmitted reference range: 80 - 100 mmHg. The reference range was not used to interpret this result as normal/abnormal. HCO3 (test code = 2037920302) See_Comment [Automated messa ge] The system which generated this result transmitted reference range: 22 - 26 mEq/L. The reference range was not used to interpret this result as normal/abnormal. BE (test code = 0703672464) See_Comment [Automated messa ge] The system which generated this result transmitted reference range: -3.0 - 3.0 mEq/L. The reference range was not used to interpret this result as normal/abnormal. THB (test code = 1385495917) 12.1 g/dL 12.0-16.0 %O2HB (test code = 6910752939) 99.5 % 94.0-99.0 H %COHB ART (test code = 6457562487) 0.1 % 0.0-1.5 %METHB ART (test code = 9257765661) 0.1 % 0.4-1.5 L VOL%O2 ART (test code = 6784003023) 17.8 % 15.0-23.0 NA (test code = 9696426921) 135 mmol/L 135-145 K+ (test code = 5634836064) 4.3 mmol/L 3.5-5.0 AC CA IONZ (test code = 8869104983) 4.50 mg/dL 4.50-5.30 GLUCOSE (test code = 7047408849) 108 mg/dL 70-110 LACTIC ACID (test code = 9125412662) 2.19 mmol/L 0.50-2.20 Lab Interpretation (test code = 84699-0) [facility]normal [facility] HospitalANGIOTENSIN CONVERTING [id number] 20:19:53* Test Item Value Reference Range Interpretation Comme nts MELLY (test code = 2742-5) 28 U/L 9-67 Performed By: [facility] [place], [place] [address]Xqvipebeyo Director: Korin Barillas MD [facility] HospitalANGIOTENSIN CONVERTING [id number] 20:19:53* Test Item Value Reference Range Interpretation Comme nts MELLY (test code = 2742-5) 28 U/L 9-67 Performed By: [facility] [place], [place] [address]Hnqyixxstt Director: Korin Barillas MD [facility] FLUID MANUAL [id number] 19:44:45* Test Item Value Reference Range Interpretation Comme nts BF SEGS% (test code = 57354-0) 2 % BF LYMPHS% (test code = 92380-0) 12 % BF MACROPHAGE% (test code = 98334-7) 86 % BF #CELLS CNTD (test code = 1930924657) cells/u L [facility] FLUID MANUAL [id number] 19:44:45* Test Item Value Reference Range Interpretation Comme nts BF SEGS% (test code = 49524-9) 2 % BF LYMPHS% (test code = 91101-3) 12 % BF MACROPHAGE% (test code = 57001-7) 86 % BF #CELLS CNTD (test code = 4480157086) cells/u L [facility] HospitalBODY FLUID DIRECT [id number] 19:44:30* Test Item Value Reference Range Interpretation Comme nts BF COLOR (test code = 3865891632) Clear BF WBC Count (test code = 9743356420) See_Comment [Automated messa ge] The system which generated this result transmitted reference range: /?L. The reference range was not used to interpret this result as normal/abnormal. BF RBC Count (test code = 8130508063) <3000 See_Comment [Automated messa ge] The system which generated this result transmitted reference range: /?L. The reference range was not used to interpret this result as normal/abnormal. LUCILLE (test code = LUCILLE) The reference range and other method performance specifications have not been established for this body fluid. ?The test results must be integrated into the clinical context for interpretation. [facility] FLUID DIRECT [id number] 19:44:30* Test Item Value Reference Range Interpretation Comme nts BF COLOR (test code = 6465660223) Clear BF WBC Count (test code = 9709652676) See_Comment [Automated messa ge] The system which generated this result transmitted reference range: /?L. The reference range was not used to interpret this result as normal/abnormal. BF RBC Count (test code = 4833485624) <3000 See_Comment [Automated messa ge] The system which generated this result transmitted reference range: /?L. The reference range was not used to interpret this result as normal/abnormal. LUCILLE (test code = LUCILLE) The reference range and other method performance specifications have not been established for this body fluid. ?The test results must be integrated into the clinical context for interpretation. [facility] WITH [id number] 19:27:30* Test Item Value Reference Range Interpretation Comme nts WBC (test code = 6690-2) See_Comment H [Automated message] The system which generated this result transmitted reference range: 4.30 - 11.10 10*3/?L. The reference range was not used to interpret this result as normal/abnormal. RBC (test code = 789-8) See_Comment L [Automated message] The system which generated this result transmitted reference range: 3.93 - 5.25 10*6/?L. The reference range was not used to interpret this result as normal/abnormal. HGB (test code = 718-7) 11.9 g/dL 11.6-15.0 HCT (test code = 4544-3) 33.7 % 35.7-45.2 L MCV (test code = 787-2) 87.5 fL 80.6-95.5 MCH (test code = 785-6) 30.9 pg 25.9-32.8 MCHC (test code = 786-4) 35.3 g/dL 31.6-35.1 H RDW-SD (test code = 30527-7) 45.8 fL 39.0-49.9 RDW-CV (test code = 788-0) 14.4 % 12.0-15.5 PLT (test code = 777-3) See_Comment H [Automated message] The system which generated this result transmitted reference range: 166 - 358 10*3/?L. The reference range was not used to interpret this result as normal/abnormal. MPV (test code = 66156-2) 10.4 fL 9.5-12.9 NRBC/100 WBC (test code = 7155036973) See_Comment [Automated message] The system which generated this result transmitted reference range: 0.0 - 10.0 /100 WBCs. The reference range was not used to interpret this result as normal/abnormal. NRBC x10^3 (test code = 0126159472) See_Comment [Automated message] The system which generated this result transmitted reference range: 10*3/?L. The reference range was not used to interpret this result as normal/abnormal. SEG % (test code = 95361-8) 84 % 33-76 H BAND % (test code = 14403-6) 8 % 0-1 H MYELO % (test code = 78850-5) 2 % See_Comment H [Automated message] The system which generated this result transmitted reference range: <=0. The reference range was not used to interpret this result as normal/abnormal. LYMPH % (test code = 64791-6) 4 % 14-54 L MONO % (test code = 98062-2) 2 % 0-4 ANC (test code = 753-4) 21.16 10*3/uL 1.88-7.09 H Lab Interpretation (test code = 76360-9) Abnormal [facility] WITH [id number] 19:27:30* Test Item Value Reference Range Interpretation Comme nts WBC (test code = 6690-2) See_Comment H [Automated message] The system which generated this result transmitted reference range: 4.30 - 11.10 10*3/?L. The reference range was not used to interpret this result as normal/abnormal. RBC (test code = 789-8) See_Comment L [Automated message] The system which generated this result transmitted reference range: 3.93 - 5.25 10*6/?L. The reference range was not used to interpret this result as normal/abnormal. HGB (test code = 718-7) 11.9 g/dL 11.6-15.0 HCT (test code = 4544-3) 33.7 % 35.7-45.2 L MCV (test code = 787-2) 87.5 fL 80.6-95.5 MCH (test code = 785-6) 30.9 pg 25.9-32.8 MCHC (test code = 786-4) 35.3 g/dL 31.6-35.1 H RDW-SD (test code = 00923-5) 45.8 fL 39.0-49.9 RDW-CV (test code = 788-0) 14.4 % 12.0-15.5 PLT (test code = 777-3) See_Comment H [Automated message] The system which generated this result transmitted reference range: 166 - 358 10*3/?L. The reference range was not used to interpret this result as normal/abnormal. MPV (test code = 66445-7) 10.4 fL 9.5-12.9 NRBC/100 WBC (test code = 2773002484) See_Comment [Automated message] The system which generated this result transmitted reference range: 0.0 - 10.0 /100 WBCs. The reference range was not used to interpret this result as normal/abnormal. NRBC x10^3 (test code = 3994435741) See_Comment [Automated message] The system which generated this result transmitted reference range: 10*3/?L. The reference range was not used to interpret this result as normal/abnormal. SEG % (test code = 07667-8) 84 % 33-76 H BAND % (test code = 43982-8) 8 % 0-1 H MYELO % (test code = 14567-7) 2 % See_Comment H [Automated message] The system which generated this result transmitted reference range: <=0. The reference range was not used to interpret this result as normal/abnormal. LYMPH % (test code = 70984-7) 4 % 14-54 L MONO % (test code = 46606-4) 2 % 0-4 ANC (test code = 753-4) 21.16 10*3/uL 1.88-7.09 H Lab Interpretation (test code = 27734-2) Abnormal [facility] METABOLIC PANEL (NA, K, CL, CO2, GLUCOSE, BUN, CREATININE, CA)2021-10-21 19:20:26* Test Item Value Reference Range Interpretation Comme nts NA (test code = 4596983819) 125 mmol/L 135-145 L K (test code = 0942512667) 4.4 mmol/L 3.5-5.0 Slight hemolysis CL (test code = 8404983268) 98 mmol/L 98-108 CO2 TOTAL (test code = 4998645851) 19 mmol/L 23-31 L AGAP (test code = 0066529509) 2-16 BUN (test code = 7845626456) 21 mg/dL 7-23 Slight hemolysis GLUCOSE (test code = 4731976186) 155 mg/dL 70-110 H CREATININE (test code = 8485279594) 0.63 mg/dL 0.50-1.04 CALCIUM (test code = 5579762150) 6.9 mg/dL 8.6-10.6 L eGFR (test code = 3413204307) mL/min/1.73m2 LUCILLE (test code = LUCILLE) Association [...] imaging tests). Lab Interpretation (test code = 02507-7) Abnormal [facility] METABOLIC PANEL (NA, K, CL, CO2, GLUCOSE, BUN, CREATININE, CA)2021-10-21 19:20:26* Test Item Value Reference Range Interpretation Comme nts NA (test code = 3187350938) 125 mmol/L 135-145 L K (test code = 7044386560) 4.4 mmol/L 3.5-5.0 Slight hemolysis CL (test code = 5939513323) 98 mmol/L 98-108 CO2 TOTAL (test code = 9620940877) 19 mmol/L 23-31 L AGAP (test code = 4324988740) 2-16 BUN (test code = 0924940797) 21 mg/dL 7-23 Slight hemolysis GLUCOSE (test code = 8022206071) 155 mg/dL 70-110 H CREATININE (test code = 5018111899) 0.63 mg/dL 0.50-1.04 CALCIUM (test code = 1719808408) 6.9 mg/dL 8.6-10.6 L eGFR (test code = 4734777561) mL/min/1.73m2 LUCILLE (test code = LUCILLE) Association [...] imaging tests). Lab Interpretation (test code = 33898-3) [facility] 19:12:03* Test Item Value Reference Range Interpretation Comme [facility] Fibrinogen (test code = 8093567110) 585 mg/dL 167-453 H Lab Interpretation (test cod e = 02554-1) [facility]normal [facility] / [id number] 19:12:03* Test Item Value Reference Range Interpretation Comme [facility] PROTIME PATIENT (test code = 5964-2) See_Comment H [Automated Funideliaa [employer]] The system which generated this result transmitted reference range: 10.1 - 12.6 Seconds. The reference range was not used to interpret this result as normal/abnormal. INR (test code = 6301-6) Normal INR <1.1; Warfarin Therapeutic range 2.0 to 3.0 or 2.5 to 3.5, depending upon the indications. Lab Interpretation (test code = 92344-1) [facility]normal [facility] 19:12:03* Test Item Value Reference Range Interpretation Comme nts Fibrinogen (test code = 3035746709) 585 mg/dL 167-453 H Lab Interpretation (test cod e = 25759-9) Abnormal [facility] / [id number] 19:12:03* Test Item Value Reference Range Interpretation Comme nts PROTIME PATIENT (test code = 5964-2) See_Comment H [Automated NTRglobal] The system which generated this result transmitted reference range: 10.1 - 12.6 Seconds. The reference range was not used to interpret this result as normal/abnormal. INR (test code = 6301-6) Normal INR <1.1; Warfarin Therapeutic range 2.0 to 3.0 or 2.5 to 3.5, depending upon the indications. Lab Interpretation (test code = 93649-9) [facility]normal [facility] [id number] 04:54:18* Test Item Value Reference Range Interpretation Comme nts URIC ACID (test code = 8537852385) 4.3 mg/dL 2.9-6.0 Lab Interpretation (test cod e = 15706-9) Normal [facility] [id number] 04:54:18* Test Item Value Reference Range Interpretation Comme nts URIC ACID (test code = 3267493667) 4.3 mg/dL 2.9-6.0 Lab Interpretation (test cod e = 41796-8) Normal [facility] (TTE)2021-10-20 20:54:06* Test Item Value Reference Range Interpretation Comme nts EF(Teich) (test code = 0505699846) 63.80 % LVIDD (test code = 9788808007) 4.40 cm LVIDS (test code = 3399088761) 2.90 cm IVS (test code = 5915620271) 0.86 cm LVPWD (test code = 7346103034) 0.86 cm LVOT diameter (test code = 0043410775) 2.00 cm FS (test code = 4528703645) 35 % LA size (test code = 8604050151) 3.4 cm LAV(MOD-sp4) (test code = 1145402788) 41.40 mL Ao root annulus (test code = 0581805045) 2.44 cm Ao root diam (test code = 0737747033) 2.44 cm Aortic root (test code = 4603062630) 2.44 cm PW (test code = 9826498756) 0.86 cm 0.6-1.1 EF - 2D (test code = 12594222) 63.80 % Interventricular Septum Diastolic Thickness by 2D (test code = 0117188) 0.86 cm Radiology Study observation (narrative) (test code = 78204-2) LUCILLE (test code = LUCILLE) ?Left?Ventricle: Left [...] [facility]2021-10-20 20:54:06* Test Item Value Reference Range Interpretation Comme nts EF(Teich) (test code = 7510568346) 63.80 % LVIDD (test code = 5724270092) 4.40 cm LVIDS (test code = 6652201460) 2.90 cm IVS (test code = 3079426841) 0.86 cm LVPWD (test code = 2794949003) 0.86 cm LVOT diameter (test code = 5985541612) 2.00 cm FS (test code = 8443737551) 35 % LA size (test code = 5980425471) 3.4 cm LAV(MOD-sp4) (test code = 0371501596) 41.40 mL Ao root annulus (test code = 8088140670) 2.44 cm Ao root diam (test code = 5486244841) 2.44 cm Aortic root (test code = 8031352684) 2.44 cm PW (test code = 4209777022) 0.86 cm 0.6-1.1 EF - 2D (test code = 61214310) 63.80 % Interventricular Septum Diastolic Thickness by 2D (test code = 3371470) 0.86 cm Radiology Study observation (narrative) (test code = 10095-4) LUCILLE (test code = LUCILLE) ?Left?Ventricle: Left ventricle is normal in size and function. Normal wall thickness. Normal systolic function with a visually estimated EF of 55 - 60%. ?Aortic?Valve: Aortic valve is normal in structure and function. ?Mitral?Valve: Mitral valve is normal in structure and function. VitalsHeight Weight BSA (Calculated - sq m) BP Pulse 60 220lb ? ?114/63 81 [facility] WITH [id number] 11:09:20* Test Item Value Reference Range Interpretation Comme nts WBC (test code = 6690-2) See_Comment H [Automated message] The system which generated this result transmitted reference range: 4.30 - 11.10 10*3/?L. The reference range was not used to interpret this result as normal/abnormal. RBC (test code = 789-8) See_Comment L [Automated message] The system which generated this result transmitted reference range: 3.93 - 5.25 10*6/?L. The reference range was not used to interpret this result as normal/abnormal. HGB (test code = 718-7) 10.5 g/dL 11.6-15.0 L HCT (test code = 4544-3) 32.9 % 35.7-45.2 L MCV (test code = 787-2) 88.4 fL 80.6-95.5 MCH (test code = 785-6) 28.2 pg 25.9-32.8 MCHC (test code = 786-4) 31.9 g/dL 31.6-35.1 RDW-SD (test code = 13235-9) 46.3 fL 39.0-49.9 RDW-CV (test code = 788-0) 14.5 % 12.0-15.5 PLT (test code = 777-3) See_Comment [Automated message] The system which generated this result transmitted reference range: 166 - 358 10*3/?L. The reference range was not used to interpret this result as normal/abnormal. MPV (test code = 31084-9) 9.9 fL 9.5-12.9 NRBC/100 WBC (test code = 3105969747) See_Comment [Automated message] The system which generated this result transmitted reference range: 0.0 - 10.0 /100 WBCs. The reference range was not used to interpret this result as normal/abnormal. NRBC x10^3 (test code = 9146576640) <0.01 See_Comment [Automated message] The system which generated this result transmitted reference range: 10*3/?L. The reference range was not used to interpret this result as normal/abnormal. GRAN MAT (NEUT) % (test code = 770-8) 89.9 % IMM GRAN % (test code = 8603787854) 2.90 % LYMPH % (test code = 736-9) 4.2 % MONO % (test code = 5905-5) 2.9 % EOS % (test code = 713-8) 0.0 % BASO % (test code = 706-2) 0.1 % GRAN MAT x10^3(ANC) (test code = 1425401872) 14.51 10*3/uL 1.88-7.09 H IMM GRAN x10^3 (test code = 6860095794) 0.46 10*3/uL 0.00-0.06 H LYMPH x10^3 (test code = 731-0) 0.67 10*3/uL 1.32-3.29 L MONO x10^3 (test code = 742-7) 0.47 10*3/uL 0.33-0.92 EOS x10^3 (test code = 711-2) <0.03 0.03-0.39 L BASO x10^3 (test code = 704-7) <0.03 0.01-0.07 TOXIC CHANGES (test code = 803-7) Present A Lab Interpretation (test code = 91371-2) Abnormal [facility] WITH [id number] 11:09:20* Test Item Value Reference Range Interpretation Comme nts WBC (test code = 6690-2) See_Comment H [Automated message] The system which generated this result transmitted reference range: 4.30 - 11.10 10*3/?L. The reference range was not used to interpret this result as normal/abnormal. RBC (test code = 789-8) See_Comment L [Automated message] The system which generated this result transmitted reference range: 3.93 - 5.25 10*6/?L. The reference range was not used to interpret this result as normal/abnormal. HGB (test code = 718-7) 10.5 g/dL 11.6-15.0 L HCT (test code = 4544-3) 32.9 % 35.7-45.2 L MCV (test code = 787-2) 88.4 fL 80.6-95.5 MCH (test code = 785-6) 28.2 pg 25.9-32.8 MCHC (test code = 786-4) 31.9 g/dL 31.6-35.1 RDW-SD (test code = 07351-7) 46.3 fL 39.0-49.9 RDW-CV (test code = 788-0) 14.5 % 12.0-15.5 PLT (test code = 777-3) See_Comment [Automated message] The system which generated this result transmitted reference range: 166 - 358 10*3/?L. The reference range was not used to interpret this result as normal/abnormal. MPV (test code = 73890-4) 9.9 fL 9.5-12.9 NRBC/100 WBC (test code = 3936918537) See_Comment [Automated message] The system which generated this result transmitted reference range: 0.0 - 10.0 /100 WBCs. The reference range was not used to interpret this result as normal/abnormal. NRBC x10^3 (test code = 5132919493) <0.01 See_Comment [Automated message] The system which generated this result transmitted reference range: 10*3/?L. The reference range was not used to interpret this result as normal/abnormal. GRAN MAT (NEUT) % (test code = 770-8) 89.9 % IMM GRAN % (test code = 7496446880) 2.90 % LYMPH % (test code = 736-9) 4.2 % MONO % (test code = 5905-5) 2.9 % EOS % (test code = 713-8) 0.0 % BASO % (test code = 706-2) 0.1 % GRAN MAT x10^3(ANC) (test code = 5344171358) 14.51 10*3/uL 1.88-7.09 H IMM GRAN x10^3 (test code = 2426329483) 0.46 10*3/uL 0.00-0.06 H LYMPH x10^3 (test code = 731-0) 0.67 10*3/uL 1.32-3.29 L MONO x10^3 (test code = 742-7) 0.47 10*3/uL 0.33-0.92 EOS x10^3 (test code = 711-2) <0.03 0.03-0.39 L BASO x10^3 (test code = 704-7) <0.03 0.01-0.07 TOXIC CHANGES (test code = 803-7) Present A Lab Interpretation (test code = 38535-4) Abnormal [facility] METABOLIC PANEL (NA, K, CL, CO2, GLUCOSE, BUN, CREATININE, CA)2021-10-20 10:55:22* Test Item Value Reference Range Interpretation Comme nts NA (test code = 7535038689) 136 mmol/L 135-145 K (test code = 1168109567) 4.1 mmol/L 3.5-5.0 CL (test code = 0317573575) 108 mmol/L 98-108 CO2 TOTAL (test code = 7017781230) 25 mmol/L 23-31 AGAP (test code = 1704197379) 2-16 BUN (test code = 0543504595) 23 mg/dL 7-23 GLUCOSE (test code = 2169436903) 134 mg/dL 70-110 H CREATININE (test code = 5622643394) 0.67 mg/dL 0.50-1.04 CALCIUM (test code = 6776670590) 7.5 mg/dL 8.6-10.6 L eGFR (test code = 3322364237) mL/min/1.73m2 LUCILLE (test code = LUCILLE) Association [...] imaging tests). Lab Interpretation (test code = 09720-9) Abnormal [facility] METABOLIC PANEL (NA, K, CL, CO2, GLUCOSE, BUN, CREATININE, CA)2021-10-20 10:55:22* Test Item Value Reference Range Interpretation Comme nts NA (test code = 8262304372) 136 mmol/L 135-145 K (test code = 7261051403) 4.1 mmol/L 3.5-5.0 CL (test code = 2137523967) 108 mmol/L 98-108 CO2 TOTAL (test code = 3747175635) 25 mmol/L 23-31 AGAP (test code = 7561576437) 2-16 BUN (test code = 2010594570) 23 mg/dL 7-23 GLUCOSE (test code = 2624646197) 134 mg/dL 70-110 H CREATININE (test code = 1774449285) 0.67 mg/dL 0.50-1.04 CALCIUM (test code = 5920319949) 7.5 mg/dL 8.6-10.6 L eGFR (test code = 3773909964) mL/min/1.73m2 LUCILLE (test code = LUCILLE) Association [...] imaging tests). Lab Interpretation (test code = 98995-6) Abnormal [facility] [id number] 21:49:45* Test Item Value Reference Range Interpretation Comme nts ANTI-DSDNA (test code = 5556075990) See_Comment [Automated message] The system which generated this result transmitted reference range: 0.0 - 4.0 IU/mL. The reference range was not used to interpret this result as normal/abnormal. LUCILLE (test code = LUCILLE) Negative ? ?< or = 4 IU/mLPositive ? ? ?> or = 10 IU/mLIndetermin ate ?5-9 IU/mL Lab Interpretation (test code = 55295-5) Normal [facility] [id number] 21:49:45* Test Item Value Reference Range Interpretation Comme nts ANTI-DSDNA (test code = 5769271522) See_Comment [Automated message] The system which generated this result transmitted reference range: 0.0 - 4.0 IU/mL. The reference range was not used to interpret this result as normal/abnormal. LUCILLE (test code = LUCILLE) Negative ? ?< or = 4 IU/mLPositive ? ? ?> or = 10 IU/mLIndetermin ate ?5-9 IU/mL Lab Interpretation (test code = 39476-5) [facility] [id number] 21:43:06* Test Item Value Reference Range Interpretation Comme nts RF (test code = 1397848653) <20 See_Comment [Automated messa ge] The system which generated this result transmitted reference range: <20 IU/mL. The reference range was not used to interpret this result as normal/abnormal. Lab Interpretation (test code = 08800-3) Normal [facility] [id number] 21:43:06* Test Item Value Reference Range Interpretation Comme nts RF (test code = 5021844322) <20 See_Comment [Automated Funideliaa ge] The system which generated this result transmitted reference range: <20 IU/mL. The reference range was not used to interpret this result as normal/abnormal. Lab Interpretation (test code = 33368-0) Normal [facility] [id number] 20:22:55 * Test Item Value Reference Range Interpretation Comme nts SHIRA Titer by IFA (test code = 8681967239) <=1:80 SHIRA Pattern (test code = 5302242353) SHIRA screen was positive at the 1:80 dilution but with low titer results observed during subsequent testing. LUCILLE (test code = LUCILLE) Anti-nuclear antib odies are seen in a variety of autoimmune [...] [facility] [id number] 20:22:55 * Test Item Value Reference Range Interpretation Comme nts SHIRA Titer by IFA (test code = 2212270096) <=1:80 SHIRA Pattern (test code = 4077816170) SHIRA screen was positive at the 1:80 dilution but with low titer results observed during subsequent testing. LUCILLE (test code = LUCILLE) Anti-nuclear antib odies are seen in a variety of autoimmune diseases and may also be seen in low titers in otherwise normal individuals without evidence of autoimmune disease. In general, a titer greater than or equal to 1:160 is considered significant. For further information, contact the appropriate Specialist. For additional SHIRA tests, refer to the Laboratory Test Directory. The specimen will be held for 7 days. [facility] [id number] 18:12:04* Test Item Value Reference Range Interpretation Comme nts Myeloperoxidase (MPO) Antibodies, IgG Interpretation (test code = 42243-4) Negative Negative Proteinase 3 (PR3) Antibodies, IgG Interpretation (test code = 28225-4) Negative Negative Myeloperoxidase (MPO) Antibodies, IgG (test code = 1202458695) <0.3 See_Comment [Automated message] The system which generated this result transmitted reference range: <=3.5 U/mL. The reference range was not used to interpret this result as normal/abnormal. Proteinase 3 (PR3) Antibodies, IgG (test code = 8523910696) <0.7 See_Comment [Automated message] The system which generated this result transmitted reference range: <=2.0 U/mL. The reference range was not used to interpret this result as normal/abnormal. LUCILLE (test code = LUCILLE) Test ?Unit ? Negative ? ? ? Equivocal ? Positive Molly MPOs ? ? ? U/ml ? <3.5 ? 3.5-5.0 ? >5 Molly PR3s ? ? ? U/ml ? <2.0 ? 2.0-3.0 ? >3.0 In case of equivocal results, we recommend to retest the patient after 8 - 12 weeks. Lab Interpretation (test code = 93451-6) Normal [facility] [id number] 18:12:04* Test Item Value Reference Range Interpretation Comme nts Myeloperoxidase (MPO) Antibodies, IgG Interpretation (test code = 18080-1) Negative Negative Proteinase 3 (PR3) Antibodies, IgG Interpretation (test code = 74344-6) Negative Negative Myeloperoxidase (MPO) Antibodies, IgG (test code = 7852184402) <0.3 See_Comment [Automated message] The system which generated this result transmitted reference range: <=3.5 U/mL. The reference range was not used to interpret this result as normal/abnormal. Proteinase 3 (PR3) Antibodies, IgG (test code = 1148762933) <0.7 See_Comment [Automated message] The system which generated this result transmitted reference range: <=2.0 U/mL. The reference range was not used to interpret this result as normal/abnormal. LUCILLE (test code = LUCILLE) Test ?Unit ? Negative ? ? ? Equivocal ? Positive Molly MPOs ? ? ? U/ml ? <3.5 ? 3.5-5.0 ? >5 Molly PR3s ? ? ? U/ml ? <2.0 ? 2.0-3.0 ? >3.0 In case of equivocal results, we recommend to retest the patient after 8 - 12 weeks. Lab Interpretation (test code = 05339-9) [facility] Test Item Value Reference Range Interpretation Comme nts MAGNESIUM (test code = 9581198709) 2.9 mg/dL 1.7-2.4 H Lab Interpretation (test cod e = 06115-6) [facility]* Test Item Value Reference Range Interpretation Comme nts MAGNESIUM (test code = 9081664562) 2.9 mg/dL 1.7-2.4 H Lab Interpretation (test cod e = 83908-0) Abnormal [facility] WITH [id number] 09:31:49* Test Item Value Reference Range Interpretation Comme nts WBC (test code = 6690-2) See_Comment H [Automated message] The system which generated this result transmitted reference range: 4.30 - 11.10 10*3/?L. The reference range was not used to interpret this result as normal/abnormal. RBC (test code = 789-8) See_Comment L [Automated message] The system which generated this result transmitted reference range: 3.93 - 5.25 10*6/?L. The reference range was not used to interpret this result as normal/abnormal. HGB (test code = 718-7) 10.8 g/dL 11.6-15.0 L HCT (test code = 4544-3) 32.9 % 35.7-45.2 L MCV (test code = 787-2) 86.8 fL 80.6-95.5 MCH (test code = 785-6) 28.5 pg 25.9-32.8 MCHC (test code = 786-4) 32.8 g/dL 31.6-35.1 RDW-SD (test code = 21392-9) 45.5 fL 39.0-49.9 RDW-CV (test code = 788-0) 14.4 % 12.0-15.5 PLT (test code = 777-3) See_Comment [Automated message] The system which generated this result transmitted reference range: 166 - 358 10*3/?L. The reference range was not used to interpret this result as normal/abnormal. MPV (test code = 83987-0) 10.0 fL 9.5-12.9 NRBC/100 WBC (test code = 0734068302) See_Comment [Automated message] The system which generated this result transmitted reference range: 0.0 - 10.0 /100 WBCs. The reference range was not used to interpret this result as normal/abnormal. NRBC x10^3 (test code = 7646669330) <0.01 See_Comment [Automated message] The system which generated this result transmitted reference range: 10*3/?L. The reference range was not used to interpret this result as normal/abnormal. GRAN MAT (NEUT) % (test code = 770-8) 93.4 % IMM GRAN % (test code = 3294427758) 1.50 % LYMPH % (test code = 736-9) 2.4 % MONO % (test code = 5905-5) 2.6 % EOS % (test code = 713-8) 0.0 % BASO % (test code = 706-2) 0.1 % GRAN MAT x10^3(ANC) (test code = 4259812228) 17.74 10*3/uL 1.88-7.09 H IMM GRAN x10^3 (test code = 2455291769) 0.28 10*3/uL 0.00-0.06 H LYMPH x10^3 (test code = 731-0) 0.46 10*3/uL 1.32-3.29 L MONO x10^3 (test code = 742-7) 0.50 10*3/uL 0.33-0.92 EOS x10^3 (test code = 711-2) <0.03 0.03-0.39 L BASO x10^3 (test code = 704-7) <0.03 0.01-0.07 TOXIC CHANGES (test code = 803-7) Present A Lab Interpretation (test code = 28132-1) Abnormal [facility] WITH [id number] 09:31:49* Test Item Value Reference Range Interpretation Comme nts WBC (test code = 6690-2) See_Comment H [Automated message] The system which generated this result transmitted reference range: 4.30 - 11.10 10*3/?L. The reference range was not used to interpret this result as normal/abnormal. RBC (test code = 789-8) See_Comment L [Automated message] The system which generated this result transmitted reference range: 3.93 - 5.25 10*6/?L. The reference range was not used to interpret this result as normal/abnormal. HGB (test code = 718-7) 10.8 g/dL 11.6-15.0 L HCT (test code = 4544-3) 32.9 % 35.7-45.2 L MCV (test code = 787-2) 86.8 fL 80.6-95.5 MCH (test code = 785-6) 28.5 pg 25.9-32.8 MCHC (test code = 786-4) 32.8 g/dL 31.6-35.1 RDW-SD (test code = 31427-2) 45.5 fL 39.0-49.9 RDW-CV (test code = 788-0) 14.4 % 12.0-15.5 PLT (test code = 777-3) See_Comment [Automated message] The system which generated this result transmitted reference range: 166 - 358 10*3/?L. The reference range was not used to interpret this result as normal/abnormal. MPV (test code = 36660-2) 10.0 fL 9.5-12.9 NRBC/100 WBC (test code = 0420165222) See_Comment [Automated message] The system which generated this result transmitted reference range: 0.0 - 10.0 /100 WBCs. The reference range was not used to interpret this result as normal/abnormal. NRBC x10^3 (test code = 7283471828) <0.01 See_Comment [Automated message] The system which generated this result transmitted reference range: 10*3/?L. The reference range was not used to interpret this result as normal/abnormal. GRAN MAT (NEUT) % (test code = 770-8) 93.4 % IMM GRAN % (test code = 3377658669) 1.50 % LYMPH % (test code = 736-9) 2.4 % MONO % (test code = 5905-5) 2.6 % EOS % (test code = 713-8) 0.0 % BASO % (test code = 706-2) 0.1 % GRAN MAT x10^3(ANC) (test code = 2096281560) 17.74 10*3/uL 1.88-7.09 H IMM GRAN x10^3 (test code = 0342408996) 0.28 10*3/uL 0.00-0.06 H LYMPH x10^3 (test code = 731-0) 0.46 10*3/uL 1.32-3.29 L MONO x10^3 (test code = 742-7) 0.50 10*3/uL 0.33-0.92 EOS x10^3 (test code = 711-2) <0.03 0.03-0.39 L BASO x10^3 (test code = 704-7) <0.03 0.01-0.07 TOXIC CHANGES (test code = 803-7) Present A Lab Interpretation (test code = 35949-7) Abnormal [facility] METABOLIC PANEL (NA, K, CL, CO2, GLUCOSE, BUN, CREATININE, CA)2021-10-19 09:25:48* Test Item Value Reference Range Interpretation Comme nts NA (test code = 1996822856) 144 mmol/L 135-145 K (test code = 4733654055) 4.5 mmol/L 3.5-5.0 CL (test code = 3742716610) 111 mmol/L 98-108 H CO2 TOTAL (test code = 2370561192) 27 mmol/L 23-31 AGAP (test code = 0724143818) 2-16 BUN (test code = 5370096391) 30 mg/dL 7-23 H GLUCOSE (test code = 7657120806) 159 mg/dL 70-110 H CREATININE (test code = 0165404308) 0.81 mg/dL 0.50-1.04 CALCIUM (test code = 5020376742) 8.2 mg/dL 8.6-10.6 L eGFR (test code = 4207608649) mL/min/1.73m2 LUCILLE (test code = LUCILLE) Association [...] imaging tests). Lab Interpretation (test code = 11824-0) Abnormal [facility] METABOLIC PANEL (NA, K, CL, CO2, GLUCOSE, BUN, CREATININE, CA)2021-10-19 09:25:48* Test Item Value Reference Range Interpretation Comme nts NA (test code = 6499025229) 144 mmol/L 135-145 K (test code = 7350803801) 4.5 mmol/L 3.5-5.0 CL (test code = 5261442275) 111 mmol/L 98-108 H CO2 TOTAL (test code = 1750497437) 27 mmol/L 23-31 AGAP (test code = 6937065450) 2-16 BUN (test code = 4244495809) 30 mg/dL 7-23 H GLUCOSE (test code = 8212990510) 159 mg/dL 70-110 H CREATININE (test code = 0427330081) 0.81 mg/dL 0.50-1.04 CALCIUM (test code = 6081887677) 8.2 mg/dL 8.6-10.6 L eGFR (test code = 4292736091) mL/min/1.73m2 LUCILLE (test code = LUCILLE) Association [...] imaging tests). Lab Interpretation (test code = 76992-6) Abnormal [facility] acute hospital GLUCOSE (AUTOMATED)2021-10-19 02:29:39* Test Item Value Reference Range Interpretation Comme nts POCT GLU (test code = 2721963275) 159 mg/dL 70-110 H Lab Interpretation (test cod e = 75840-5) Abnormal [facility] acute hospital GLUCOSE (AUTOMATED)2021-10-19 02:29:39* Test Item Value Reference Range Interpretation Comme nts POCT GLU (test code = 5390009522) 159 mg/dL 70-110 H Lab Interpretation (test cod e = 30349-0) [facility] [id number] 22:06:05* Test Item Value Reference Range Interpretation Comme nts SHIRA (test code = 8474723990) Positive Negative A LUCILLE (test code = LUCILLE) Negative - No Anti-Nuclear Antibodies detected by IFA.Positive - SHIRA IFA screen performed with a 1:80 dilution in adults and a 1:40 dilution in pediatrics. Any SHIRA "Positive" will have titer performed and reported separately. Lab Interpretation (test code = 52753-5) [facility]normal [facility] [id number] 22:06:05* Test Item Value Reference Range Interpretation Comme nts SHIRA (test code = 2594105971) Positive Negative A LUCILLE (test code = LUCILLE) Negative - No Anti-Nuclear Antibodies detected by IFA.Positive - SHIRA IFA screen performed with a 1:80 dilution in adults and a 1:40 dilution in pediatrics. Any SHIRA "Positive" will have titer performed and reported separately. Lab Interpretation (test code = 61957-9) [facility]normal [facility]GLOBIN (A1C)2021-10-18 17:16:16* Test Item Value Reference Range Interpretation Comme nts HGB A1C (test code = 4548-4) 6.0 % 4.0-5.7 H LUCILLE (test code = LUCILLE) Reference RangesNormal: <5.7%Prediabetes: 5.7 - 6.4%Diabetes: > 6.5% Lab Interpretation (test code = 78977-2) [facility]normal [facility] (A1C)2021-10-18 17:16:16* Test Item Value Reference Range Interpretation Comme nts HGB A1C (test code = 4548-4) 6.0 % 4.0-5.7 H LUCILLE (test code = LUCILLE) Reference RangesNormal: <5.7%Prediabetes: 5.7 - 6.4%Diabetes: > 6.5% Lab Interpretation (test code = 68400-0) [facility]normal [facility]CBC WITH [id number] 10:21:29* Test Item Value Reference Range Interpretation Comme nts WBC (test code = 6690-2) See_Comment H [Automated message] The system which generated this result transmitted reference range: 4.30 - 11.10 10*3/?L. The reference range was not used to interpret this result as normal/abnormal. RBC (test code = 789-8) See_Comment L [Automated message] The system which generated this result transmitted reference range: 3.93 - 5.25 10*6/?L. The reference range was not used to interpret this result as normal/abnormal. HGB (test code = 718-7) 11.1 g/dL 11.6-15.0 L HCT (test code = 4544-3) 33.2 % 35.7-45.2 L MCV (test code = 787-2) 85.3 fL 80.6-95.5 MCH (test code = 785-6) 28.5 pg 25.9-32.8 MCHC (test code = 786-4) 33.4 g/dL 31.6-35.1 RDW-SD (test code = 86347-9) 44.0 fL 39.0-49.9 RDW-CV (test code = 788-0) 14.1 % 12.0-15.5 PLT (test code = 777-3) See_Comment [Automated message] The system which generated this result transmitted reference range: 166 - 358 10*3/?L. The reference range was not used to interpret this result as normal/abnormal. MPV (test code = 80139-5) 10.5 fL 9.5-12.9 NRBC/100 WBC (test code = 2573592117) See_Comment [Automated message] The system which generated this result transmitted reference range: 0.0 - 10.0 /100 WBCs. The reference range was not used to interpret this result as normal/abnormal. NRBC x10^3 (test code = 7414260955) <0.01 See_Comment [Automated message] The system which generated this result transmitted reference range: 10*3/?L. The reference range was not used to interpret this result as normal/abnormal. GRAN MAT (NEUT) % (test code = 770-8) 94.3 % IMM GRAN % (test code = 7288707963) 1.00 % LYMPH % (test code = 736-9) 2.1 % MONO % (test code = 5905-5) 2.5 % EOS % (test code = 713-8) 0.0 % BASO % (test code = 706-2) 0.1 % GRAN MAT x10^3(ANC) (test code = 5992516763) 18.69 10*3/uL 1.88-7.09 H IMM GRAN x10^3 (test code = 6102213653) 0.20 10*3/uL 0.00-0.06 H LYMPH x10^3 (test code = 731-0) 0.42 10*3/uL 1.32-3.29 L MONO x10^3 (test code = 742-7) 0.50 10*3/uL 0.33-0.92 EOS x10^3 (test code = 711-2) <0.03 0.03-0.39 L BASO x10^3 (test code = 704-7) <0.03 0.01-0.07 TOXIC CHANGES (test code = 803-7) Present A Lab Interpretation (test code = 62734-6) Abnormal [facility] WITH [id number] 10:21:29* Test Item Value Reference Range Interpretation Comme nts WBC (test code = 6690-2) See_Comment H [Automated message] The system which generated this result transmitted reference range: 4.30 - 11.10 10*3/?L. The reference range was not used to interpret this result as normal/abnormal. RBC (test code = 789-8) See_Comment L [Automated message] The system which generated this result transmitted reference range: 3.93 - 5.25 10*6/?L. The reference range was not used to interpret this result as normal/abnormal. HGB (test code = 718-7) 11.1 g/dL 11.6-15.0 L HCT (test code = 4544-3) 33.2 % 35.7-45.2 L MCV (test code = 787-2) 85.3 fL 80.6-95.5 MCH (test code = 785-6) 28.5 pg 25.9-32.8 MCHC (test code = 786-4) 33.4 g/dL 31.6-35.1 RDW-SD (test code = 94492-6) 44.0 fL 39.0-49.9 RDW-CV (test code = 788-0) 14.1 % 12.0-15.5 PLT (test code = 777-3) See_Comment [Automated message] The system which generated this result transmitted reference range: 166 - 358 10*3/?L. The reference range was not used to interpret this result as normal/abnormal. MPV (test code = 88608-7) 10.5 fL 9.5-12.9 NRBC/100 WBC (test code = 3159485420) See_Comment [Automated message] The system which generated this result transmitted reference range: 0.0 - 10.0 /100 WBCs. The reference range was not used to interpret this result as normal/abnormal. NRBC x10^3 (test code = 5033955302) <0.01 See_Comment [Automated message] The system which generated this result transmitted reference range: 10*3/?L. The reference range was not used to interpret this result as normal/abnormal. GRAN MAT (NEUT) % (test code = 770-8) 94.3 % IMM GRAN % (test code = 7830867502) 1.00 % LYMPH % (test code = 736-9) 2.1 % MONO % (test code = 5905-5) 2.5 % EOS % (test code = 713-8) 0.0 % BASO % (test code = 706-2) 0.1 % GRAN MAT x10^3(ANC) (test code = 4925928347) 18.69 10*3/uL 1.88-7.09 H IMM GRAN x10^3 (test code = 9475182878) 0.20 10*3/uL 0.00-0.06 H LYMPH x10^3 (test code = 731-0) 0.42 10*3/uL 1.32-3.29 L MONO x10^3 (test code = 742-7) 0.50 10*3/uL 0.33-0.92 EOS x10^3 (test code = 711-2) <0.03 0.03-0.39 L BASO x10^3 (test code = 704-7) <0.03 0.01-0.07 TOXIC CHANGES (test code = 803-7) Present A Lab Interpretation (test code = 74702-7) Abnormal [facility] METABOLIC PANEL (NA, K, CL, CO2, GLUCOSE, BUN, CREATININE, CA)2021-10-18 09:49:57* Test Item Value Reference Range Interpretation Comme nts NA (test code = 3781922786) 141 mmol/L 135-145 K (test code = 7536865932) 4.9 mmol/L 3.5-5.0 CL (test code = 8090439707) 107 mmol/L 98-108 CO2 TOTAL (test code = 7186549292) 26 mmol/L 23-31 AGAP (test code = 7067641263) 2-16 BUN (test code = 6512965025) 30 mg/dL 7-23 H GLUCOSE (test code = 2396967588) 166 mg/dL 70-110 H CREATININE (test code = 4923744390) 0.76 mg/dL 0.50-1.04 CALCIUM (test code = 5178478176) 8.2 mg/dL 8.6-10.6 L eGFR (test code = 4776072193) mL/min/1.73m2 LUCILLE (test code = LUCILLE) Association [...] imaging tests). Lab Interpretation (test code = 81603-5) [facility]normal [facility] 09:49:57* Test Item Value Reference Range Interpretation Comme nts MAGNESIUM (test code = 1753991276) 3.0 mg/dL 1.7-2.4 H Lab Interpretation (test cod e = 83261-2) [facility]normal [facility]PH[facility]2022-[facility]-15 09:49:57* Test Item Value Reference Range Interpretation Comme nts PHOSPHORUS (test code = 8293458216) 4.0 mg/dL 2.5-5.0 Lab Interpretation (test cod e = 30306-9) Normal [facility] (NA, K, CL, CO2, GLUCOSE, BUN, CREATININE, CA)2021-10-18 09:49:57* Test Item Value Reference Range Interpretation Comme nts NA (test code = 8364187707) 141 mmol/L 135-145 K (test code = 6684832867) 4.9 mmol/L 3.5-5.0 CL (test code = 0144140815) 107 mmol/L 98-108 CO2 TOTAL (test code = 7540943981) 26 mmol/L 23-31 AGAP (test code = 1028265143) 2-16 BUN (test code = 8725341657) 30 mg/dL 7-23 H GLUCOSE (test code = 4325342170) 166 mg/dL 70-110 H CREATININE (test code = 8773135365) 0.76 mg/dL 0.50-1.04 CALCIUM (test code = 0353350295) 8.2 mg/dL 8.6-10.6 L eGFR (test code = 7591172610) mL/min/1.73m2 LUCILLE (test code = LUCILLE) Association [...] imaging tests). Lab Interpretation (test code = 19538-6) [facility]normal [facility] 09:49:57* Test Item Value Reference Range Interpretation Comme nts MAGNESIUM (test code = 6840426051) 3.0 mg/dL 1.7-2.4 H Lab Interpretation (test cod e = 39453-8) [facility]normal [facility]2022-[facility]-15 09:49:57* Test Item Value Reference Range Interpretation Comme nts PHOSPHORUS (test code = 5058509566) 4.0 mg/dL 2.5-5.0 Lab Interpretation (test cod e = 92008-1) Normal [facility]HIV [facility] AG-AB WITH [id number] 02:31:06* Test Item Value Reference Range Interpretation Comme nts HIV Semi-quantitative (test code = 28254-6) Negative Negative LUCILLE (test code = LUCILLE) Non-reactive for HIV-1 antigen and HIV-1/HIV-2 antibodies. ?No laboratory evidence of HIV infection. ?Repeat in 2-4 weeks if acute HIV infection is suspected. [facility] AG-AB WITH [id number] 02:31:06* Test Item Value Reference Range Interpretation Comme nts HIV Semi-quantitative (test code = 81558-7) Negative Negative LUCILLE (test code = LUCILLE) Non-reactive for HIV-1 antigen and HIV-1/HIV-2 antibodies. ?No laboratory evidence of HIV infection. ?Repeat in 2-4 weeks if acute HIV infection is suspected. [facility] (NA, K, CL, CO2, GLUCOSE, BUN, CREATININE, CA)2021-10-18 01:11:26* Test Item Value Reference Range Interpretation Comme nts NA (test code = 5701314362) 141 mmol/L 135-145 K (test code = 4785658936) 4.6 mmol/L 3.5-5.0 CL (test code = 8428376222) 106 mmol/L 98-108 CO2 TOTAL (test code = 8418481009) 26 mmol/L 23-31 AGAP (test code = 5584425855) 2-16 BUN (test code = 4896909320) 28 mg/dL 7-23 H GLUCOSE (test code = 9050008768) 180 mg/dL 70-110 H CREATININE (test code = 8241416753) 0.82 mg/dL 0.50-1.04 CALCIUM (test code = 1660797751) 8.3 mg/dL 8.6-10.6 L eGFR (test code = 7788664068) mL/min/1.73m2 LUCILLE (test code = LUCILLE) Association [...] imaging tests). Lab Interpretation (test code = 54156-2) Abnormal [facility] METABOLIC PANEL (NA, K, CL, CO2, GLUCOSE, BUN, CREATININE, CA)2021-10-18 01:11:26* Test Item Value Reference Range Interpretation Comme nts NA (test code = 1394163466) 141 mmol/L 135-145 K (test code = 1365584115) 4.6 mmol/L 3.5-5.0 CL (test code = 8612531064) 106 mmol/L 98-108 CO2 TOTAL (test code = 4285609518) 26 mmol/L 23-31 AGAP (test code = 5678432859) 2-16 BUN (test code = 7971128756) 28 mg/dL 7-23 H GLUCOSE (test code = 7685567166) 180 mg/dL 70-110 H CREATININE (test code = 1739255792) 0.82 mg/dL 0.50-1.04 CALCIUM (test code = 0031659202) 8.3 mg/dL 8.6-10.6 L eGFR (test code = 4561488457) mL/min/1.73m2 LUCILLE (test code = LUCILLE) Association [...] imaging tests). Lab Interpretation (test code = 03159-1) [facility]normal [facility]N-[facility]MINAL [id number] 22:06:03* Test Item Value Reference Range Interpretation Comme nts NT-proBNP (test code = 7892814666) 250 pg/mL See_Comment H [Automated message] The system which generated this result transmitted reference range: <=125. The reference range was not used to interpret this result as normal/abnormal. LUCILLE (test code = LUCILLE) Biotin has been reported to cause a negative bias, interpret results relative to patient's use of biotin. Lab Interpretation (test code = 13519-2) Abnormal [facility] [id number] 22:06:03* Test Item Value Reference Range Interpretation Comme nts NT-proBNP (test code = 9530002969) 250 pg/mL See_Comment H [Automated message] The system which generated this result transmitted reference range: <=125. The reference range was not used to interpret this result as normal/abnormal. LUCILLE (test code = LUCILLE) Biotin has been reported to cause a negative bias, interpret results relative to patient's use of biotin. Lab Interpretation (test code = 72961-2) [facility]normal [facility]ABG+COOX+NA+K+GLU+CA2+2021-10-17 21:42:22* Test Item Value Reference Range Interpretation Comme nts PH (test code = 2) 7.35-7.45 PCO2 (test code = 3509868924) See_Comment [Automated messa ge] The system which generated this result transmitted reference range: 35 - 45 mmHg. The reference range was not used to interpret this result as normal/abnormal. PO2 (test code = 1769566638) See_Comment H [Automated messa ge] The system which generated this result transmitted reference range: 80 - 100 mmHg. The reference range was not used to interpret this result as normal/abnormal. HCO3 (test code = 2907382262) See_Comment [Automated messa ge] The system which generated this result transmitted reference range: 22 - 26 mEq/L. The reference range was not used to interpret this result as normal/abnormal. BE (test code = 0838622950) See_Comment [Automated messa ge] The system which generated this result transmitted reference range: -3.0 - 3.0 mEq/L. The reference range was not used to interpret this result as normal/abnormal. THB (test code = 1441504465) 13.0 g/dL 12.0-16.0 %O2HB (test code = 2905585306) 98.9 % 94.0-99.0 %COHB ART (test code = 0922835491) 0.3 % 0.0-1.5 %METHB ART (test code = 4944969975) 0.0 % 0.4-1.5 L VOL%O2 ART (test code = 1819664321) 18.5 % 15.0-23.0 NA (test code = 1297425177) 139 mmol/L 135-145 K+ (test code = 3693493863) 4.6 mmol/L 3.5-5.0 AC CA IONZ (test code = 6537862810) 4.50 mg/dL 4.50-5.30 GLUCOSE (test code = 4093020682) 166 mg/dL 70-110 H Lab Interpretation (test code = 49396-5) [facility]normal [facility]+COOX+NA+K+GLU+CA2+2021-10-17 21:42:22* Test Item Value Reference Range Interpretation Comme nts PH (test code = 2) 7.35-7.45 PCO2 (test code = 0081223515) See_Comment [Automated messa ge] The system which generated this result transmitted reference range: 35 - 45 mmHg. The reference range was not used to interpret this result as normal/abnormal. PO2 (test code = 0434821192) See_Comment H [Automated messa ge] The system which generated this result transmitted reference range: 80 - 100 mmHg. The reference range was not used to interpret this result as normal/abnormal. HCO3 (test code = 4261777630) See_Comment [Automated messa ge] The system which generated this result transmitted reference range: 22 - 26 mEq/L. The reference range was not used to interpret this result as normal/abnormal. BE (test code = 7765445656) See_Comment [Automated messa ge] The system which generated this result transmitted reference range: -3.0 - 3.0 mEq/L. The reference range was not used to interpret this result as normal/abnormal. THB (test code = 9323323286) 13.0 g/dL 12.0-16.0 %O2HB (test code = 6285030168) 98.9 % 94.0-99.0 %COHB ART (test code = 9998462227) 0.3 % 0.0-1.5 %METHB ART (test code = 2155727987) 0.0 % 0.4-1.5 L VOL%O2 ART (test code = 3662435696) 18.5 % 15.0-23.0 NA (test code = 4808427338) 139 mmol/L 135-145 K+ (test code = 6473572417) 4.6 mmol/L 3.5-5.0 AC CA IONZ (test code = 3474267979) 4.50 mg/dL 4.50-5.30 GLUCOSE (test code = 4839011129) 166 mg/dL 70-110 H Lab Interpretation (test code = 02579-4) Abnormal [facility] WITH [id number] 11:01:03* Test Item Value Reference Range Interpretation Comme nts WBC (test code = 6690-2) See_Comment H [Automated message] The system which generated this result transmitted reference range: 4.30 - 11.10 10*3/?L. The reference range was not used to interpret this result as normal/abnormal. RBC (test code = 789-8) See_Comment [Automated message] The system which generated this result transmitted reference range: 3.93 - 5.25 10*6/?L. The reference range was not used to interpret this result as normal/abnormal. HGB (test code = 718-7) 12.3 g/dL 11.6-15.0 HCT (test code = 4544-3) 37.0 % 35.7-45.2 MCV (test code = 787-2) 86.4 fL 80.6-95.5 MCH (test code = 785-6) 28.7 pg 25.9-32.8 MCHC (test code = 786-4) 33.2 g/dL 31.6-35.1 RDW-SD (test code = 08622-6) 44.5 fL 39.0-49.9 RDW-CV (test code = 788-0) 14.1 % 12.0-15.5 PLT (test code = 777-3) See_Comment [Automated message] The system which generated this result transmitted reference range: 166 - 358 10*3/?L. The reference range was not used to interpret this result as normal/abnormal. MPV (test code = 94336-4) 11.0 fL 9.5-12.9 NRBC/100 WBC (test code = 8361473729) See_Comment [Automated message] The system which generated this result transmitted reference range: 0.0 - 10.0 /100 WBCs. The reference range was not used to interpret this result as normal/abnormal. NRBC x10^3 (test code = 2851338543) <0.01 See_Comment [Automated message] The system which generated this result transmitted reference range: 10*3/?L. The reference range was not used to interpret this result as normal/abnormal. GRAN MAT (NEUT) % (test code = 770-8) 91.6 % IMM GRAN % (test code = 5761373052) 1.40 % LYMPH % (test code = 736-9) 5.5 % MONO % (test code = 5905-5) 1.4 % EOS % (test code = 713-8) 0.0 % BASO % (test code = 706-2) 0.1 % GRAN MAT x10^3(ANC) (test code = 5677189381) 17.75 10*3/uL 1.88-7.09 H IMM GRAN x10^3 (test code = 8138501377) 0.27 10*3/uL 0.00-0.06 H LYMPH x10^3 (test code = 731-0) 1.06 10*3/uL 1.32-3.29 L MONO x10^3 (test code = 742-7) 0.28 10*3/uL 0.33-0.92 L EOS x10^3 (test code = 711-2) <0.03 0.03-0.39 L BASO x10^3 (test code = 704-7) <0.03 0.01-0.07 TOXIC CHANGES (test code = 803-7) Present A Lab Interpretation (test code = 55006-8) Abnormal [facility] WITH [id number] 11:01:03* Test Item Value Reference Range Interpretation Comme nts WBC (test code = 6690-2) See_Comment H [Automated message] The system which generated this result transmitted reference range: 4.30 - 11.10 10*3/?L. The reference range was not used to interpret this result as normal/abnormal. RBC (test code = 789-8) See_Comment [Automated message] The system which generated this result transmitted reference range: 3.93 - 5.25 10*6/?L. The reference range was not used to interpret this result as normal/abnormal. HGB (test code = 718-7) 12.3 g/dL 11.6-15.0 HCT (test code = 4544-3) 37.0 % 35.7-45.2 MCV (test code = 787-2) 86.4 fL 80.6-95.5 MCH (test code = 785-6) 28.7 pg 25.9-32.8 MCHC (test code = 786-4) 33.2 g/dL 31.6-35.1 RDW-SD (test code = 60055-4) 44.5 fL 39.0-49.9 RDW-CV (test code = 788-0) 14.1 % 12.0-15.5 PLT (test code = 777-3) See_Comment [Automated message] The system which generated this result transmitted reference range: 166 - 358 10*3/?L. The reference range was not used to interpret this result as normal/abnormal. MPV (test code = 40163-9) 11.0 fL 9.5-12.9 NRBC/100 WBC (test code = 6383684118) See_Comment [Automated message] The system which generated this result transmitted reference range: 0.0 - 10.0 /100 WBCs. The reference range was not used to interpret this result as normal/abnormal. NRBC x10^3 (test code = 8638458413) <0.01 See_Comment [Automated message] The system which generated this result transmitted reference range: 10*3/?L. The reference range was not used to interpret this result as normal/abnormal. GRAN MAT (NEUT) % (test code = 770-8) 91.6 % IMM GRAN % (test code = 6648187253) 1.40 % LYMPH % (test code = 736-9) 5.5 % MONO % (test code = 5905-5) 1.4 % EOS % (test code = 713-8) 0.0 % BASO % (test code = 706-2) 0.1 % GRAN MAT x10^3(ANC) (test code = 7309857090) 17.75 10*3/uL 1.88-7.09 H IMM GRAN x10^3 (test code = 2093551211) 0.27 10*3/uL 0.00-0.06 H LYMPH x10^3 (test code = 731-0) 1.06 10*3/uL 1.32-3.29 L MONO x10^3 (test code = 742-7) 0.28 10*3/uL 0.33-0.92 L EOS x10^3 (test code = 711-2) <0.03 0.03-0.39 L BASO x10^3 (test code = 704-7) <0.03 0.01-0.07 TOXIC CHANGES (test code = 803-7) Present A Lab Interpretation (test code = 38883-5) Abnormal [facility] METABOLIC PANEL (NA, K, CL, CO2, GLUCOSE, BUN, CREATININE, CA)2021-10-17 10:54:32* Test Item Value Reference Range Interpretation Comme nts NA (test code = 1879000560) 135 mmol/L 135-145 K (test code = 0029645786) 5.2 mmol/L 3.5-5.0 H Slight hemolysis CL (test code = 5368087190) 101 mmol/L 98-108 CO2 TOTAL (test code = 3105150999) 27 mmol/L 23-31 AGAP (test code = 2349260017) 2-16 BUN (test code = 0697136731) 21 mg/dL 7-23 Slight hemolysis GLUCOSE (test code = 4746991588) 153 mg/dL 70-110 H CREATININE (test code = 4556354530) 0.71 mg/dL 0.50-1.04 CALCIUM (test code = 8186188402) 8.3 mg/dL 8.6-10.6 L eGFR (test code = 1919442807) mL/min/1.73m2 LUCILLE (test code = LUCILLE) Association [...] imaging tests). Lab Interpretation (test code = 66202-2) [facility]* Test Item Value Reference Range Interpretation Comme nts MAGNESIUM (test code = 7108475546) 2.2 mg/dL 1.7-2.4 Lab Interpretation (test cod e = 69134-8) [facility]:54:32* Test Item Value Reference Range Interpretation Comme nts PHOSPHORUS (test code = 2781198649) 5.9 mg/dL 2.5-5.0 H Lab Interpretation (test cod e = 83668-4) Abnormal [facility] [facility] (NA, K, CL, CO2, GLUCOSE, BUN, CREATININE, CA)2021-10-17 10:54:32* Test Item Value Reference Range Interpretation Comme nts NA (test code = 8991418410) 135 mmol/L 135-145 K (test code = 8408660031) 5.2 mmol/L 3.5-5.0 H Slight hemolysis CL (test code = 2569264321) 101 mmol/L 98-108 CO2 TOTAL (test code = 8984835993) 27 mmol/L 23-31 AGAP (test code = 6648555890) 2-16 BUN (test code = 4372583989) 21 mg/dL 7-23 Slight hemolysis GLUCOSE (test code = 6365428265) 153 mg/dL 70-110 H CREATININE (test code = 6186099623) 0.71 mg/dL 0.50-1.04 CALCIUM (test code = 8033785652) 8.3 mg/dL 8.6-10.6 L eGFR (test code = 0592180465) mL/min/1.73m2 LUCILLE (test code = LUCILLE) Association [...] imaging tests). Lab Interpretation (test code = 29870-6) Abnormal [facility]2022-02-14 10:54:32* Test Item Value Reference Range Interpretation Comme nts MAGNESIUM (test code = 4022211277) 2.2 mg/dL 1.7-2.4 Lab Interpretation (test cod e = 06942-7) Normal [facility]2022-02-14 10:54:32* Test Item Value Reference Range Interpretation Comme nts PHOSPHORUS (test code = 5410981818) 5.9 mg/dL 2.5-5.0 H Lab Interpretation (test cod e = 80922-4) Abnormal [facility]2022-02-14 10:53:06* Test Item Value Reference Range Interpretation Comme nts ESR (test code = 8837873453) See_Comment H [Automated messa ge] The system which generated this result transmitted reference range: 0 - 20 mm/HR. The reference range was not used to interpret this result as normal/abnormal. Lab Interpretation (test code = 88474-9) Abnormal [facility]2022-02-14 10:53:06* Test Item Value Reference Range Interpretation Comme nts ESR (test code = 0431384543) See_Comment H [Automated messa ge] The system which generated this result transmitted reference range: 0 - 20 mm/HR. The reference range was not used to interpret this result as normal/abnormal. Lab Interpretation (test code = 01241-9) Abnormal [facility]2022-02-13 11:13:05* Test Item Value Reference Range Interpretation Comme nts MAGNESIUM (test code = 5833096120) 2.3 mg/dL 1.7-2.4 Lab Interpretation (test cod e = 66956-0) Normal [facility]2022-02-13 11:13:05* Test Item Value Reference Range Interpretation Comme nts PHOSPHORUS (test code = 8862255685) 3.4 mg/dL 2.5-5.0 Lab Interpretation (test cod e = 28664-2) Normal [facility]2022-02-13 11:13:05* Test Item Value Reference Range Interpretation Comme nts MAGNESIUM (test code = 1415264128) 2.3 mg/dL 1.7-2.4 Lab Interpretation (test cod e = 50484-9) [facility] 11:13:05* Test Item Value Reference Range Interpretation Comme nts PHOSPHORUS (test code = 2268439973) 3.4 mg/dL 2.5-5.0 Lab Interpretation (test cod e = 82169-8) [facility] (NA, K, CL, CO2, GLUCOSE, BUN, CREATININE, CA)2021-10-16 11:13:04* Test Item Value Reference Range Interpretation Comme nts NA (test code = 0945970885) 135 mmol/L 135-145 K (test code = 9778906568) 4.6 mmol/L 3.5-5.0 CL (test code = 7504400960) 102 mmol/L 98-108 CO2 TOTAL (test code = 5124428535) 29 mmol/L 23-31 AGAP (test code = 5217751060) 2-16 BUN (test code = 9454073892) 24 mg/dL 7-23 H GLUCOSE (test code = 2112899675) 90 mg/dL 70-110 CREATININE (test code = 0424460907) 0.87 mg/dL 0.50-1.04 CALCIUM (test code = 6131111605) 8.0 mg/dL 8.6-10.6 L eGFR (test code = 2233453001) mL/min/1.73m2 LUCILLE (test code = LUCILLE) Association [...] imaging tests). Lab Interpretation (test code = 96267-4) Abnormal [facility] METABOLIC PANEL (NA, K, CL, CO2, GLUCOSE, BUN, CREATININE, CA)2021-10-16 11:13:04* Test Item Value Reference Range Interpretation Comme nts NA (test code = 3661948393) 135 mmol/L 135-145 K (test code = 2969159877) 4.6 mmol/L 3.5-5.0 CL (test code = 9291318521) 102 mmol/L 98-108 CO2 TOTAL (test code = 3982164891) 29 mmol/L 23-31 AGAP (test code = 2052591605) 2-16 BUN (test code = 1793490073) 24 mg/dL 7-23 H GLUCOSE (test code = 7698345844) 90 mg/dL 70-110 CREATININE (test code = 8329223313) 0.87 mg/dL 0.50-1.04 CALCIUM (test code = 7037406938) 8.0 mg/dL 8.6-10.6 L eGFR (test code = 3797392890) mL/min/1.73m2 LUCILLE (test code = LUCILLE) Association [...] imaging tests). Lab Interpretation (test code = 72057-0) [facility] + LACTIC [id number] 10:59:55* Test Item Value Reference Range Interpretation Comme nts PH (test code = 2) 7.35-7.45 PCO2 (test code = 1023947386) See_Comment [Automated messa ge] The system which generated this result transmitted reference range: 35 - 45 mmHg. The reference range was not used to interpret this result as normal/abnormal. PO2 (test code = 2606004945) See_Comment L [Automated messa ge] The system which generated this result transmitted reference range: 80 - 100 mmHg. The reference range was not used to interpret this result as normal/abnormal. HCO3 (test code = 2549370458) See_Comment H [Automated messa ge] The system which generated this result transmitted reference range: 22 - 26 mEq/L. The reference range was not used to interpret this result as normal/abnormal. BE (test code = 6079619980) See_Comment [Automated messa ge] The system which generated this result transmitted reference range: -3.0 - 3.0 mEq/L. The reference range was not used to interpret this result as normal/abnormal. THB (test code = 4768857367) 13.7 g/dL 12.0-16.0 %O2HB (test code = 6340459387) 86.3 % 94.0-99.0 L %COHB ART (test code = 3752812614) 0.1 % 0.0-1.5 %METHB ART (test code = 5625484647) 0.1 % 0.4-1.5 L VOL%O2 ART (test code = 4801953137) 16.6 % 15.0-23.0 NA (test code = 2206200014) 135 mmol/L 135-145 K+ (test code = 5263273166) 4.6 mmol/L 3.5-5.0 AC CA IONZ (test code = 8300829246) 4.70 mg/dL 4.50-5.30 GLUCOSE (test code = 3699148510) 88 mg/dL 70-110 LACTIC ACID (test code = 8082199513) 1.41 mmol/L 0.50-2.20 QUES Lab Interpretation (test code = 91145-7) [facility] + LACTIC [id number] 10:59:55* Test Item Value Reference Range Interpretation Comme nts PH (test code = 2) 7.35-7.45 PCO2 (test code = 9927859695) See_Comment [Automated messa ge] The system which generated this result transmitted reference range: 35 - 45 mmHg. The reference range was not used to interpret this result as normal/abnormal. PO2 (test code = 2769126633) See_Comment L [Automated messa ge] The system which generated this result transmitted reference range: 80 - 100 mmHg. The reference range was not used to interpret this result as normal/abnormal. HCO3 (test code = 9694302849) See_Comment H [Automated messa ge] The system which generated this result transmitted reference range: 22 - 26 mEq/L. The reference range was not used to interpret this result as normal/abnormal. BE (test code = 0971736520) See_Comment [Automated messa ge] The system which generated this result transmitted reference range: -3.0 - 3.0 mEq/L. The reference range was not used to interpret this result as normal/abnormal. THB (test code = 0405318446) 13.7 g/dL 12.0-16.0 %O2HB (test code = 7201806100) 86.3 % 94.0-99.0 L %COHB ART (test code = 4220877548) 0.1 % 0.0-1.5 %METHB ART (test code = 4953092866) 0.1 % 0.4-1.5 L VOL%O2 ART (test code = 8134104058) 16.6 % 15.0-23.0 NA (test code = 5029249110) 135 mmol/L 135-145 K+ (test code = 5214638171) 4.6 mmol/L 3.5-5.0 AC CA IONZ (test code = 2804251802) 4.70 mg/dL 4.50-5.30 GLUCOSE (test code = 3948578078) 88 mg/dL 70-110 LACTIC ACID (test code = 8225891719) 1.41 mmol/L 0.50-2.20 QUES Lab Interpretation (test code = 29373-6) Abnormal [facility] WITH [id number] 10:54:01* Test Item Value Reference Range Interpretation Comme nts WBC (test code = 6690-2) See_Comment H [Automated message] The system which generated this result transmitted reference range: 4.30 - 11.10 10*3/?L. The reference range was not used to interpret this result as normal/abnormal. RBC (test code = 789-8) See_Comment [Automated message] The system which generated this result transmitted reference range: 3.93 - 5.25 10*6/?L. The reference range was not used to interpret this result as normal/abnormal. HGB (test code = 718-7) 11.4 g/dL 11.6-15.0 L HCT (test code = 4544-3) 35.3 % 35.7-45.2 L MCV (test code = 787-2) 88.5 fL 80.6-95.5 MCH (test code = 785-6) 28.6 pg 25.9-32.8 MCHC (test code = 786-4) 32.3 g/dL 31.6-35.1 RDW-SD (test code = 31829-9) 47.0 fL 39.0-49.9 RDW-CV (test code = 788-0) 14.6 % 12.0-15.5 PLT (test code = 777-3) See_Comment [Automated message] The system which generated this result transmitted reference range: 166 - 358 10*3/?L. The reference range was not used to interpret this result as normal/abnormal. MPV (test code = 28801-1) 10.5 fL 9.5-12.9 NRBC/100 WBC (test code = 5328172522) See_Comment [Automated message] The system which generated this result transmitted reference range: 0.0 - 10.0 /100 WBCs. The reference range was not used to interpret this result as normal/abnormal. NRBC x10^3 (test code = 6148618499) See_Comment [Automated message] The system which generated this result transmitted reference range: 10*3/?L. The reference range was not used to interpret this result as normal/abnormal. GRAN MAT (NEUT) % (test code = 770-8) 85.6 % IMM GRAN % (test code = 6200405012) 1.10 % LYMPH % (test code = 736-9) 9.7 % MONO % (test code = 5905-5) 3.0 % EOS % (test code = 713-8) 0.5 % BASO % (test code = 706-2) 0.1 % GRAN MAT x10^3(ANC) (test code = 5547664338) 12.97 10*3/uL 1.88-7.09 H IMM GRAN x10^3 (test code = 0634976832) 0.16 10*3/uL 0.00-0.06 H LYMPH x10^3 (test code = 731-0) 1.47 10*3/uL 1.32-3.29 MONO x10^3 (test code = 742-7) 0.45 10*3/uL 0.33-0.92 EOS x10^3 (test code = 711-2) 0.08 10*3/uL 0.03-0.39 BASO x10^3 (test code = 704-7) <0.03 0.01-0.07 Lab Interpretation (test code = 82034-8) Abnormal [facility] WITH [id number] 10:54:01* Test Item Value Reference Range Interpretation Comme nts WBC (test code = 6690-2) See_Comment H [Automated message] The system which generated this result transmitted reference range: 4.30 - 11.10 10*3/?L. The reference range was not used to interpret this result as normal/abnormal. RBC (test code = 789-8) See_Comment [Automated message] The system which generated this result transmitted reference range: 3.93 - 5.25 10*6/?L. The reference range was not used to interpret this result as normal/abnormal. HGB (test code = 718-7) 11.4 g/dL 11.6-15.0 L HCT (test code = 4544-3) 35.3 % 35.7-45.2 L MCV (test code = 787-2) 88.5 fL 80.6-95.5 MCH (test code = 785-6) 28.6 pg 25.9-32.8 MCHC (test code = 786-4) 32.3 g/dL 31.6-35.1 RDW-SD (test code = 66549-7) 47.0 fL 39.0-49.9 RDW-CV (test code = 788-0) 14.6 % 12.0-15.5 PLT (test code = 777-3) See_Comment [Automated message] The system which generated this result transmitted reference range: 166 - 358 10*3/?L. The reference range was not used to interpret this result as normal/abnormal. MPV (test code = 09053-6) 10.5 fL 9.5-12.9 NRBC/100 WBC (test code = 0390630875) See_Comment [Automated message] The system which generated this result transmitted reference range: 0.0 - 10.0 /100 WBCs. The reference range was not used to interpret this result as normal/abnormal. NRBC x10^3 (test code = 5764521562) See_Comment [Automated message] The system which generated this result transmitted reference range: 10*3/?L. The reference range was not used to interpret this result as normal/abnormal. GRAN MAT (NEUT) % (test code = 770-8) 85.6 % IMM GRAN % (test code = 0868458660) 1.10 % LYMPH % (test code = 736-9) 9.7 % MONO % (test code = 5905-5) 3.0 % EOS % (test code = 713-8) 0.5 % BASO % (test code = 706-2) 0.1 % GRAN MAT x10^3(ANC) (test code = 6453432185) 12.97 10*3/uL 1.88-7.09 H IMM GRAN x10^3 (test code = 7578731196) 0.16 10*3/uL 0.00-0.06 H LYMPH x10^3 (test code = 731-0) 1.47 10*3/uL 1.32-3.29 MONO x10^3 (test code = 742-7) 0.45 10*3/uL 0.33-0.92 EOS x10^3 (test code = 711-2) 0.08 10*3/uL 0.03-0.39 BASO x10^3 (test code = 704-7) <0.03 0.01-0.07 Lab Interpretation (test code = 99842-1) Abnormal [facility]-REACTIVE [id number] 23:24:07* Test Item Value Reference Range Interpretation Comme nts CRP (test code = 3170070983) 22.1 mg/dL <1.0 H Lab Interpretation (test cod e = 12927-8) Abnormal [facility]-REACTIVE [id number] 23:24:07* Test Item Value Reference Range Interpretation Comme nts CRP (test code = 3630148151) 22.1 mg/dL <1.0 H Lab Interpretation (test cod e = 11638-0) [facility] [id number] 23:21:42* Test Item Value Reference Range Interpretation Comments TROPONIN I (test code = 2964506520) 0.003 ng/mL See_Comment [Automated message] The system which generated this result transmitted reference range: <=0.034. The reference range was not used to interpret this result as normal/abnormal. LUCILLE (test code = LUCILLE) Reference (Normal) [...] patient's use of biotin. Lab Interpretation (test code = 30492-6) Normal [facility] [id number] 23:21:42* Test Item Value Reference Range Interpretation Comments TROPONIN I (test code = 1638660593) 0.003 ng/mL See_Comment [Automated message] The system which generated this result transmitted reference range: <=0.034. The reference range was not used to interpret this result as normal/abnormal. LUCILLE (test code = LUCILLE) Reference (Normal) [...] patient's use of biotin. Lab Interpretation (test code = 97349-5) Normal [facility] (NA, K, CL, CO2, GLUCOSE, BUN, CREATININE, CA)2021-10-15 23:12:40* Test Item Value Reference Range Interpretation Comme nts NA (test code = 9449605590) 136 mmol/L 135-145 K (test code = 9661095911) 4.8 mmol/L 3.5-5.0 CL (test code = 9289171894) 104 mmol/L 98-108 CO2 TOTAL (test code = 7335201897) 26 mmol/L 23-31 AGAP (test code = 3412268724) 2-16 BUN (test code = 0824311772) 22 mg/dL 7-23 GLUCOSE (test code = 9354689140) 114 mg/dL 70-110 H CREATININE (test code = 8297191518) 0.77 mg/dL 0.50-1.04 CALCIUM (test code = 2783039427) 8.2 mg/dL 8.6-10.6 L eGFR (test code = 0985810802) mL/min/1.73m2 LUCILLE (test code = LUCILLE) Association [...] imaging tests). Lab Interpretation (test code = 82243-0) [facility]normal [facility] (NA, K, CL, CO2, GLUCOSE, BUN, CREATININE, CA)2021-10-15 23:12:40* Test Item Value Reference Range Interpretation Comme nts NA (test code = 1021121821) 136 mmol/L 135-145 K (test code = 4643671175) 4.8 mmol/L 3.5-5.0 CL (test code = 9507882848) 104 mmol/L 98-108 CO2 TOTAL (test code = 4962790324) 26 mmol/L 23-31 AGAP (test code = 1317004744) 2-16 BUN (test code = 3763525186) 22 mg/dL 7-23 GLUCOSE (test code = 2589098149) 114 mg/dL 70-110 H CREATININE (test code = 8113812945) 0.77 mg/dL 0.50-1.04 CALCIUM (test code = 7483658365) 8.2 mg/dL 8.6-10.6 L eGFR (test code = 1726694153) mL/min/1.73m2 LUCILLE (test code = LUCILLE) Association [...] imaging tests). Lab Interpretation (test code = 46972-4) [facility]normal [facility] [id number] 21:55:57* Test Item Value Reference Range Interpretation Comments TROPONIN I (test code = 7338331014) 0.003 ng/mL See_Comment [Automated message] The system which generated this result transmitted reference range: <=0.034. The reference range was not used to interpret this result as normal/abnormal. LUCILLE (test code = LUCILLE) Reference (Normal) [...] patient's use of biotin. Lab Interpretation (test code = 29583-6) Normal [facility] [id number] 21:55:57* Test Item Value Reference Range Interpretation Comments TROPONIN I (test code = 5922076002) 0.003 ng/mL See_Comment [Automated message] The system which generated this result transmitted reference range: <=0.034. The reference range was not used to interpret this result as normal/abnormal. LUCILLE (test code = LUCILLE) Reference (Normal) [...] patient's use of biotin. Lab Interpretation (test code = 63972-3) Normal [facility]PROCAL[facility]ONIN2022-02-12 19:07:46* Test Item Value Reference Range Interpretation Comme nts Procalcitonin (test code = 8807905900) 0.15 ng/mL <0.08 H LUCILLE (test code = LUCILLE) INTERPRETATION OF [...] lung abscess/empyema. For further information please refer to:[email or web address] Lab Interpretation (test code = 53550-0) Abnormal [facility]PROCAL[facility]IN2022-02-12 19:07:46* Test Item Value Reference Range Interpretation Comme nts Procalcitonin (test code = 5438882879) 0.15 ng/mL <0.08 H LUCILLE (test code = LUCILLE) INTERPRETATION OF [...] lung abscess/empyema. For further information please refer to:[email or web address] Lab Interpretation (test code = 29410-0) Abnormal [facility]N-TERMINAL [id number] 18:31:24* Test Item Value Reference Range Interpretation Comme nts NT-proBNP (test code = 5106446546) 43 pg/mL See_Comment [Automated message] The system which generated this result transmitted reference range: <=125. The reference range was not used to interpret this result as normal/abnormal. LUCILLE (test code = LUCILLE) Biotin has been reported to cause a negative bias, interpret results relative to patient's use of biotin. Lab Interpretation (test code = 99684-0) Normal [facility]MINAL [id number] 18:31:24* Test Item Value Reference Range Interpretation Comme nts NT-proBNP (test code = 7521553558) 43 pg/mL See_Comment [Automated message] The system which generated this result transmitted reference range: <=125. The reference range was not used to interpret this result as normal/abnormal. LUCILLE (test code = LUCILLE) Biotin has been reported to cause a negative bias, interpret results relative to patient's use of biotin. Lab Interpretation (test code = 33897-1) Normal [facility]Procalcitonin2022-02-12 09:17:58* Test Item Value Reference Range Interpretation Comme nts Procalcitonin (test code = 4843486855) 0.15 ng/mL <0.08 H LUCILLE (test code = LUCILLE) INTERPRETATION OF [...] lung abscess/empyema. For further information please refer to:[email or web address] Lab Interpretation (test code = 46129-9) Abnormal [facility]onin2022-02-12 09:17:58* Test Item Value Reference Range Interpretation Comme nts Procalcitonin (test code = 9026800711) 0.15 ng/mL <0.08 H LUCILLE (test code = LUCILLE) INTERPRETATION OF [...] lung abscess/empyema. For further information please refer to:[email or web address] Lab Interpretation (test code = 88273-7) Abnormal [facility] (NA, K, CL, CO2, GLUCOSE, BUN, CREATININE, CA)2021-10-15 08:36:11* Test Item Value Reference Range Interpretation Comme nts NA (test code = 0682523866) 139 mmol/L 135-145 K (test code = 0001238325) 5.5 mmol/L 3.5-5.0 H Slight hemolysis CL (test code = 2962681466) 104 mmol/L 98-108 CO2 TOTAL (test code = 5377958025) 29 mmol/L 23-31 AGAP (test code = 9556526434) 2-16 BUN (test code = 9355160725) 17 mg/dL 7-23 Slight hemolysis GLUCOSE (test code = 3285140500) 131 mg/dL 70-110 H CREATININE (test code = 7073316881) 0.77 mg/dL 0.50-1.04 CALCIUM (test code = 6300711778) 8.5 mg/dL 8.6-10.6 L eGFR (test code = 8219944229) mL/min/1.73m2 LUCILLE (test code = LUCILLE) Association [...] imaging tests). Lab Interpretation (test code = 35702-4) [id number] 08:36:11* Test Item Value Reference Range Interpretation Comme nts MAGNESIUM (test code = 3052052654) 2.4 mg/dL 1.7-2.4 Lab Interpretation (test cod e = 76389-3) Normal [facility] METABOLIC PANEL (NA, K, CL, CO2, GLUCOSE, BUN, CREATININE, CA)2021-10-15 08:36:11* Test Item Value Reference Range Interpretation Comme nts NA (test code = 7320081894) 139 mmol/L 135-145 K (test code = 0473986913) 5.5 mmol/L 3.5-5.0 H Slight hemolysis CL (test code = 6879608362) 104 mmol/L 98-108 CO2 TOTAL (test code = 3402132925) 29 mmol/L 23-31 AGAP (test code = 7801085921) 2-16 BUN (test code = 2545233861) 17 mg/dL 7-23 Slight hemolysis GLUCOSE (test code = 3406499563) 131 mg/dL 70-110 H CREATININE (test code = 7359465929) 0.77 mg/dL 0.50-1.04 CALCIUM (test code = 7158170886) 8.5 mg/dL 8.6-10.6 L eGFR (test code = 7422446985) mL/min/1.73m2 LUCILLE (test code = LUCILLE) Association [...] imaging tests). Lab Interpretation (test code = 82773-4) [facility] [id number] 08:36:11* Test Item Value Reference Range Interpretation Comme nts MAGNESIUM (test code = 4666905051) 2.4 mg/dL 1.7-2.4 Lab Interpretation (test cod e = 34373-4) [id number] 08:21:08* Test Item Value Reference Range Interpretation Comments TROPONIN I (test code = 7366477339) 0.005 ng/mL See_Comment [Automated message] The system which generated this result transmitted reference range: <=0.034. The reference range was not used to interpret this result as normal/abnormal. LUCILLE (test code = LUCILLE) Reference (Normal) [...] patient's use of biotin. Lab Interpretation (test code = 64206-4) Normal [facility] [id number] 08:21:08* Test Item Value Reference Range Interpretation Comments TROPONIN I (test code = 9735109952) 0.005 ng/mL See_Comment [Automated message] The system which generated this result transmitted reference range: <=0.034. The reference range was not used to interpret this result as normal/abnormal. LUCILLE (test code = LUCILLE) Reference (Normal) [...] patient's use of biotin. Lab Interpretation (test code = 61651-7) Normal [facility] WITH [id number] 07:37:26* Test Item Value Reference Range Interpretation Comme nts WBC (test code = 6690-2) See_Comment H [Automated message] The system which generated this result transmitted reference range: 4.30 - 11.10 10*3/?L. The reference range was not used to interpret this result as normal/abnormal. RBC (test code = 789-8) See_Comment [Automated message] The system which generated this result transmitted reference range: 3.93 - 5.25 10*6/?L. The reference range was not used to interpret this result as normal/abnormal. HGB (test code = 718-7) 12.8 g/dL 11.6-15.0 HCT (test code = 4544-3) 38.8 % 35.7-45.2 MCV (test code = 787-2) 87.8 fL 80.6-95.5 MCH (test code = 785-6) 29.0 pg 25.9-32.8 MCHC (test code = 786-4) 33.0 g/dL 31.6-35.1 RDW-SD (test code = 18771-0) 47.4 fL 39.0-49.9 RDW-CV (test code = 788-0) 14.6 % 12.0-15.5 PLT (test code = 777-3) See_Comment [Automated message] The system which generated this result transmitted reference range: 166 - 358 10*3/?L. The reference range was not used to interpret this result as normal/abnormal. MPV (test code = 09608-3) 11.1 fL 9.5-12.9 NRBC/100 WBC (test code = 2904616409) See_Comment [Automated message] The system which generated this result transmitted reference range: 0.0 - 10.0 /100 WBCs. The reference range was not used to interpret this result as normal/abnormal. NRBC x10^3 (test code = 2115963337) <0.01 See_Comment [Automated message] The system which generated this result transmitted reference range: 10*3/?L. The reference range was not used to interpret this result as normal/abnormal. GRAN MAT (NEUT) % (test code = 770-8) 92.0 % IMM GRAN % (test code = 0748342632) 1.10 % LYMPH % (test code = 736-9) 5.0 % MONO % (test code = 5905-5) 1.8 % EOS % (test code = 713-8) 0.0 % BASO % (test code = 706-2) 0.1 % GRAN MAT x10^3(ANC) (test code = 3317638524) 20.65 10*3/uL 1.88-7.09 H IMM GRAN x10^3 (test code = 0121980993) 0.25 10*3/uL 0.00-0.06 H LYMPH x10^3 (test code = 731-0) 1.13 10*3/uL 1.32-3.29 L MONO x10^3 (test code = 742-7) 0.40 10*3/uL 0.33-0.92 EOS x10^3 (test code = 711-2) <0.03 0.03-0.39 L BASO x10^3 (test code = 704-7) 0.03 10*3/uL 0.01-0.07 Lab Interpretation (test code = 46213-2) Abnormal [facility] WITH [id number] 07:37:26* Test Item Value Reference Range Interpretation Comme nts WBC (test code = 6690-2) See_Comment H [Automated message] The system which generated this result transmitted reference range: 4.30 - 11.10 10*3/?L. The reference range was not used to interpret this result as normal/abnormal. RBC (test code = 789-8) See_Comment [Automated message] The system which generated this result transmitted reference range: 3.93 - 5.25 10*6/?L. The reference range was not used to interpret this result as normal/abnormal. HGB (test code = 718-7) 12.8 g/dL 11.6-15.0 HCT (test code = 4544-3) 38.8 % 35.7-45.2 MCV (test code = 787-2) 87.8 fL 80.6-95.5 MCH (test code = 785-6) 29.0 pg 25.9-32.8 MCHC (test code = 786-4) 33.0 g/dL 31.6-35.1 RDW-SD (test code = 93686-7) 47.4 fL 39.0-49.9 RDW-CV (test code = 788-0) 14.6 % 12.0-15.5 PLT (test code = 777-3) See_Comment [Automated message] The system which generated this result transmitted reference range: 166 - 358 10*3/?L. The reference range was not used to interpret this result as normal/abnormal. MPV (test code = 43342-5) 11.1 fL 9.5-12.9 NRBC/100 WBC (test code = 4276937892) See_Comment [Automated message] The system which generated this result transmitted reference range: 0.0 - 10.0 /100 WBCs. The reference range was not used to interpret this result as normal/abnormal. NRBC x10^3 (test code = 9006306074) <0.01 See_Comment [Automated message] The system which generated this result transmitted reference range: 10*3/?L. The reference range was not used to interpret this result as normal/abnormal. GRAN MAT (NEUT) % (test code = 770-8) 92.0 % IMM GRAN % (test code = 1482821862) 1.10 % LYMPH % (test code = 736-9) 5.0 % MONO % (test code = 5905-5) 1.8 % EOS % (test code = 713-8) 0.0 % BASO % (test code = 706-2) 0.1 % GRAN MAT x10^3(ANC) (test code = 8255524811) 20.65 10*3/uL 1.88-7.09 H IMM GRAN x10^3 (test code = 9364387736) 0.25 10*3/uL 0.00-0.06 H LYMPH x10^3 (test code = 731-0) 1.13 10*3/uL 1.32-3.29 L MONO x10^3 (test code = 742-7) 0.40 10*3/uL 0.33-0.92 EOS x10^3 (test code = 711-2) <0.03 0.03-0.39 L BASO x10^3 (test code = 704-7) 0.03 10*3/uL 0.01-0.07 Lab Interpretation (test code = 86418-4) [facility]CA2[facility]10-15 07:28:14* Test Item Value Reference Range Interpretation Comme nts PH (test code = 2) 7.35-7.45 PCO2 (test code = 3327286911) See_Comment [Automated messa ge] The system which generated this result transmitted reference range: 35 - 45 mmHg. The reference range was not used to interpret this result as normal/abnormal. PO2 (test code = 2943622242) See_Comment H [Automated messa ge] The system which generated this result transmitted reference range: 80 - 100 mmHg. The reference range was not used to interpret this result as normal/abnormal. HCO3 (test code = 5658097050) See_Comment [Automated messa ge] The system which generated this result transmitted reference range: 22 - 26 mEq/L. The reference range was not used to interpret this result as normal/abnormal. BE (test code = 7962208445) See_Comment [Automated messa ge] The system which generated this result transmitted reference range: -3.0 - 3.0 mEq/L. The reference range was not used to interpret this result as normal/abnormal. THB (test code = 6432815040) 13.1 g/dL 12.0-16.0 %O2HB (test code = 8633959646) 98.7 % 94.0-99.0 %COHB ART (test code = 8814977664) 0.4 % 0.0-1.5 %METHB ART (test code = 1327082230) 0.0 % 0.4-1.5 L VOL%O2 ART (test code = 3756783537) 18.5 % 15.0-23.0 QUES NA (test code = 7040818137) 138 mmol/L 135-145 K+ (test code = 2056617003) 5.0 mmol/L 3.5-5.0 AC CA IONZ (test code = 4931657890) 4.50 mg/dL 4.50-5.30 GLUCOSE (test code = 6184495287) 138 mg/dL 70-110 H Lab Interpretation (test code = 39727-6) [facility]GLU[facility]CA2+2021-10-15 07:28:14* Test Item Value Reference Range Interpretation Comme nts PH (test code = 2) 7.35-7.45 PCO2 (test code = 5100717479) See_Comment [Automated messa ge] The system which generated this result transmitted reference range: 35 - 45 mmHg. The reference range was not used to interpret this result as normal/abnormal. PO2 (test code = 0652059577) See_Comment H [Automated messa ge] The system which generated this result transmitted reference range: 80 - 100 mmHg. The reference range was not used to interpret this result as normal/abnormal. HCO3 (test code = 6082766828) See_Comment [Automated messa ge] The system which generated this result transmitted reference range: 22 - 26 mEq/L. The reference range was not used to interpret this result as normal/abnormal. BE (test code = 8515409235) See_Comment [Automated messa ge] The system which generated this result transmitted reference range: -3.0 - 3.0 mEq/L. The reference range was not used to interpret this result as normal/abnormal. THB (test code = 8109948086) 13.1 g/dL 12.0-16.0 %O2HB (test code = 3247900115) 98.7 % 94.0-99.0 %COHB ART (test code = 0522277022) 0.4 % 0.0-1.5 %METHB ART (test code = 5548692149) 0.0 % 0.4-1.5 L VOL%O2 ART (test code = 1005086437) 18.5 % 15.0-23.0 QUES NA (test code = 2047383540) 138 mmol/L 135-145 K+ (test code = 2023825682) 5.0 mmol/L 3.5-5.0 AC CA IONZ (test code = 2950635780) 4.50 mg/dL 4.50-5.30 GLUCOSE (test code = 2079680601) 138 mg/dL 70-110 H Lab Interpretation (test code = 90743-7) [facility]normal [facility] [id number] 00:00:00 * Test Item Value Reference Range Interpretation Comme nts DEB SPECIES (test code = 89033) NEGATIVE G. VAGINALIS (test code = 48838) POSITIVE T. VAGINALIS (test code = 44705) NEGATIVE VAGINAL PATHOGENS DNA [id number] 00:00:00* Test Item Value Reference Range Interpretation Comme nts DEB SPECIES (test code = 69116) NEGATIVE G. VAGINALIS (test code = 63578) POSITIVE T. VAGINALIS (test code = 77318) NEGATIVE GC AND CHLAMYDIA, AMPLIFIED, [id number] 00:00:00* Test Item Value Reference Range Interpretation Comme nts GONORRHEA, NAAT (test code = 13796) NEGATIVE CHLAMYDIA, NAAT (test code = 03051) NEGATIVE GC AND CHLAMYDIA, AMPLIFIED, [id number] 00:00:00* Test Item Value Reference Range Interpretation Comme nts GONORRHEA, NAAT (test code = 86580) NEGATIVE CHLAMYDIA, NAAT (test code = 78632) NEGATIVE HIV AB/AG COMBO RFLX [id number] 00:00:00* Test Item Value Reference Range Interpretation Comme nts HIV 1/2 4TH GEN, RFLX CONF ( test code = 3514) NON-REACTIVE HIV AB/AG COMBO RFLX [id number] 00:00:00* Test Item Value Reference Range Interpretation Comme nts HIV 1/2 4TH GEN, RFLX CONF ( test code = 3514) NON-REACTIVE [id number] 00:00:00* Test Item Value Reference Range Interpretation Comme nts RPR RESULT (test code = 3501) NON-REACTIVE RPR TITER (test code = 3500) NOT INDIC. TITER [id number] 00:00:00* Test Item Value Reference Range Interpretation Comme nts RPR RESULT (test code = 3501) NON-REACTIVE RPR TITER (test code = 3500) NOT INDIC. TITER [id number] 00:00:00* Test Item Value Reference Range Interpretation Comme nts RPR RESULT (test code = 3501) NON-REACTIVE RPR TITER (test code = 3500) NOT INDIC. TITER VAGINAL PATHOGENS DNA [id number] 00:00:00* Test Item Value Reference Range Interpretation Comme nts DEB SPECIES (test code = ) NEGATIVE G. VAGINALIS (test code = 72578) POSITIVE T. VAGINALIS (test code = 44397) NEGATIVE VAGINAL PATHOGENS DNA [id number] 00:00:00* Test Item Value Reference Range Interpretation Comme nts DEB SPECIES (test code = ) NEGATIVE G. VAGINALIS (test code = 83980) POSITIVE T. VAGINALIS (test code = 88050) NEGATIVE GC AND CHLAMYDIA, AMPLIFIED, [id number] 00:00:00* Test Item Value Reference Range Interpretation Comme nts GONORRHEA, NAAT (test code = 66188) NEGATIVE CHLAMYDIA, NAAT (test code = 08397) NEGATIVE GC AND CHLAMYDIA, AMPLIFIED, [id number] 00:00:00* Test Item Value Reference Range Interpretation Comme nts GONORRHEA, NAAT (test code = 06732) NEGATIVE CHLAMYDIA, NAAT (test code = 25309) NEGATIVE HIV AB/AG COMBO RFLX [id number] 00:00:00* Test Item Value Reference Range Interpretation Comme nts HIV 1/2 4TH GEN, RFLX CONF ( test code = 3514) NON-REACTIVE HIV AB/AG COMBO RFLX [id number] 00:00:00* Test Item Value Reference Range Interpretation Comme nts HIV 1/2 4TH GEN, RFLX CONF ( test code = 3514) NON-REACTIVE [id number] 00:00:00* Test Item Value Reference Range Interpretation Comme nts RPR RESULT (test code = 3501) NON-REACTIVE RPR TITER (test code = 3500) NOT INDIC. TITER [id number] 00:00:00* Test Item Value Reference Range Interpretation Comme nts RPR RESULT (test code = 3501) NON-REACTIVE RPR TITER (test code = 3500) NOT INDIC. TITER [id number] 00:00:00* Test Item Value Reference Range Interpretation Comme nts RPR RESULT (test code = 3501) NON-REACTIVE RPR TITER (test code = 3500) NOT INDIC. TITER VAGINAL PATHOGENS DNA [id number] 00:00:00* Test Item Value Reference Range Interpretation Comme nts DEB SPECIES (test code = ) NEGATIVE G. VAGINALIS (test code = 95536) POSITIVE T. VAGINALIS (test code = 56086) NEGATIVE VAGINAL PATHOGENS DNA [id number] 00:00:00* Test Item Value Reference Range Interpretation Comme nts DEB SPECIES (test code = ) NEGATIVE G. VAGINALIS (test code = 64226) POSITIVE T. VAGINALIS (test code = 05961) NEGATIVE GC AND CHLAMYDIA, AMPLIFIED, [id number] 00:00:00* Test Item Value Reference Range Interpretation Comme nts GONORRHEA, NAAT (test code = 48758) NEGATIVE CHLAMYDIA, NAAT (test code = 20074) NEGATIVE GC AND CHLAMYDIA, AMPLIFIED, [id number] 00:00:00* Test Item Value Reference Range Interpretation Comme nts GONORRHEA, NAAT (test code = 08921) NEGATIVE CHLAMYDIA, NAAT (test code = 81138) NEGATIVE HIV AB/AG COMBO RFLX [id number] 00:00:00* Test Item Value Reference Range Interpretation Comme nts HIV 1/2 4TH GEN, RFLX CONF ( test code = 3514) NON-REACTIVE HIV AB/AG COMBO RFLX [id number] 00:00:00* Test Item Value Reference Range Interpretation Comme nts HIV 1/2 4TH GEN, RFLX CONF ( test code = 3514) NON-REACTIVE VAGINAL PATHOGENS DNA [id number] 00:00:00* Test Item Value Reference Range Interpretation Comme nts DEB SPECIES (test code = ) NEGATIVE G. VAGINALIS (test code = 70775) POSITIVE T. VAGINALIS (test code = 79360) NEGATIVE [id number] 00:00:00* Test Item Value Reference Range Interpretation Comme nts RPR RESULT (test code = 3501) NON-REACTIVE RPR TITER (test code = 3500) NOT INDIC. TITER VAGINAL PATHOGENS DNA [id number] 00:00:00* Test Item Value Reference Range Interpretation Comme nts DEB SPECIES (test code = 42721) NEGATIVE G. VAGINALIS (test code = ) POSITIVE T. VAGINALIS (test code = 41781) NEGATIVE GC AND CHLAMYDIA, AMPLIFIED, [id number] 00:00:00* Test Item Value Reference Range Interpretation Comme nts GONORRHEA, NAAT (test code = 54992) NEGATIVE CHLAMYDIA, NAAT (test code = 42473) NEGATIVE GC AND CHLAMYDIA, AMPLIFIED, [id number] 00:00:00* Test Item Value Reference Range Interpretation Comme nts GONORRHEA, NAAT (test code = 22404) NEGATIVE CHLAMYDIA, NAAT (test code = 30874) NEGATIVE HIV AB/AG COMBO RFLX [id number] 00:00:00* Test Item Value Reference Range Interpretation Comme nts HIV 1/2 4TH GEN, RFLX CONF ( test code = 3514) NON-REACTIVE HIV AB/AG COMBO RFLX [id number] 00:00:00* Test Item Value Reference Range Interpretation Comme nts HIV 1/2 4TH GEN, RFLX CONF ( test code = 3514) NON-REACTIVE [id number] 00:00:00* Test Item Value Reference Range Interpretation Comme nts RPR RESULT (test code = 3501) NON-REACTIVE RPR TITER (test code = 3500) NOT INDIC. TITER [id number] 00:00:00* Test Item Value Reference Range Interpretation Comme nts RPR RESULT (test code = 3501) NON-REACTIVE RPR TITER (test code = 3500) NOT INDIC. TITER [id number] 00:00:00* Test Item Value Reference Range Interpretation Comme nts RPR RESULT (test code = 3501) NON-REACTIVE RPR TITER (test code = 3500) NOT INDIC. TITER [id number] 00:00:00* Test Item Value Reference Range Interpretation Comme nts RPR RESULT (test code = 3501) NON-REACTIVE RPR TITER (test code = 3500) NOT INDIC. TITER [id number] 00:00:00* Test Item Value Reference Range Interpretation Comme nts RPR RESULT (test code = 3501) NON-REACTIVE RPR TITER (test code = 3500) NOT INDIC. TITER
[2023-09-12 13:31] LABS: Absolute Lymphocytes (CBC) 2.1 K/uL (0.7-4.9); Hematocrit 42.2 % (36.0-45.0); Lymphocytes % 34.8 % (15.3-44.8); MPV 8.7 fL (7.6-11.3); Platelets 280 thou/uL (152-406); RBC Red Blood Cell Count 5.09 M/uL (3.86-4.86)
[2023-09-12 13:54] LABS: Albumin 3.7 g/dL (3.4-5.0); Bilirubin Total 0.4 mg/dL (0.2-1.0); Potassium 4.4 mEq/L (3.5-5.1); Protein, Total 7.8 g/dL (6.4-8.2)
--- NOTE | 2023-09-12 14:19 | RAD REPORT ---
EXAM DESCRIPTION: US - Abdomen Exam Limited - 09/12/2023 1:49 pm CLINICAL HISTORY: Abdominal pain. COMPARISON: None. FINDINGS: The gallbladder wall is not thickened. A gallstone is not seen. The biliary tree is normal caliber. IMPRESSION: Unremarkable gallbladder ultrasound.
[2023-09-12 14:24] LABS: Specific Gravity > 1.030 (1.005-1.030); Urine Bacteria <20 /HPF (<20); Urine Bilirubin NEGATIVE (Negative); Urine Blood 2+ (Negative); Urine Clarity Extremely Turbid (Clear); Urine Color Yellow (Yellow); Urine Glucose NEGATIVE (Negative); Urine Mucus 2+ /HPF (None Seen); Urine Protein 1+ (Negative); Urine Urobilinogen Normal (Normal); Urine pH 5.5 (5.0-7.0)
--- NOTE | 2023-09-12 15:12 | RAD REPORT ---
EXAM DESCRIPTION: CT - Abdomen Pelvis W Contrast - 09/12/2023 2:22 pm CLINICAL HISTORY: Abdominal pain COMPARISON: May 2023 TECHNIQUE: Computed axial tomography of the abdomen pelvis was obtained. 100 cc Isovue-300 was admin istered intravenously. Oral contrast was not requested which limits evaluation of bowel and appendix All CT scans are performed using dose optimization technique as appropriate and may include automated exposure control or mA/KV adjustment according to patient size. FINDINGS: Mildly inhomogeneous right lobe liver. Spleen, pancreas, adrenal and kidneys appear unremarkable. There is no evidence of diverticulitis. The normal appendix. No adnexal mass Small umbilical hernia Moderate osteoarthritis right hip IMPRESSION: Mildly inhomogeneous right lobe liver presumably not significant. Inflammation can also have this appearance
--- NOTE | 2023-09-12 16:02 | ER ---
Nurse's Notes [facility] Name: Nancie Ordonez Age: 52 yrs Sex: Female : 1970 Arrival Date: 09/12/2023 Time: 12:04 Bed 13 Private MD: Diagnosis: Upper abdominal pain, unspecified;Vomiting Presentation: 09/12 12:15 Chief complaint: Patient states: Abdominal pain with N/V for 1 week. No fever. ll1 Coronavirus screen: Client denies travel out of the [place] in the last 14 days. fatigue, nausea, vomiting. Client presents with at least one sign or symptom that may indicate coronavirus-19. Standard/surgical mask placed on the client. Ebola Screen: Patient denies travel to an Ebola-affected area in the 21 days before illness onset. Initial Sepsis Screen: Does the patient meet any 2 criteria? No. Patient's initial sepsis screen is negative. Does the patient have a suspected source of infection? Yes: Acute abdominal pain. Risk Assessment: Do you want to hurt yourself or someone else? Patient reports no desire to harm self or others. Onset of symptoms was September 06, 2023. 12:15 Method Of Arrival: Ambulatory ll1 12:15 Acuity: DEEPALI 3 ll1 Triage Assessment: 17:02 GI: Reports lower abdominal pain. 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 - Social history:: Smoking status: Patient denies any tobacco usage or history of. - Family history:: not pertinent. - Hospitalizations: : No recent hospitalization is reported. Screenin:57 [facility] ED Fall Risk Assessment (Adult) History of falling in the last 3 months, tl4 including since admission No falls in past 3 months (0 pts) Confusion or Disorientation No (0 pts) Intoxicated or Sedated No (0 pts) Impaired Gait No (0 pts) Mobility Assist Device Used No (0 pt) Altered Elimination No (0 pt) Score/Fall Risk Level 0 - 2 = Low Risk Oriented to surroundings, Maintained a safe environment, Educated pt \T\ family on fall prevention, incl call for assistance when getting out of bed, Assessed \T\ reinforced patient's understanding of fall precautions. Abuse screen: Denies threats or abuse. Denies injuries from another. Nutritional screening: No deficits noted. Tuberculosis screening: No symptoms or risk factors identified. Assessment: 13:27 General: Appears in no apparent distress. Behavior is calm, cooperative. Pain: tl4 Complains of pain in abdomen. Neuro: No deficits noted. Cardiovascular: No deficits noted. Denies chest pain, shortness of breath. Respiratory: No deficits noted. Breath sounds are clear bilaterally. Denies shortness of breath. GI: Abdomen is flat. : No signs and/or symptoms were reported regarding the genitourinary system. Vital Signs: 12:04 BP 136 / 91; Pulse 80; Resp 16; Pulse Ox 99% on R/A; Pain 8/10; tl4 12:15 BP 136 / 91; Pulse 69; Resp 17; Temp 98; Pulse Ox 100% ; Weight 85.73 kg; Height 5 ft. ll1 3 in. ; Pain 4/10; 13:00 BP 160 / 101; Pulse 94; Resp 16; Pulse Ox 97% on R/A; tl4 14:00 BP 134 / 102; Pulse 75; Resp 16; Pulse Ox 100% on R/A; tl4 15:20 BP 127 / 90; Pulse 77; Resp 18; Pulse Ox 100% on R/A; Pain 6/10; tl4 15:20 BP 132 / 84; Pulse 71; Resp 18; Pulse Ox 100% on R/A; Pain 5/10; tl4 12:15 Body Mass Index 33.48 (85.73 kg, 160.02 cm) ll1 12:04 Pain Scale: Adult tl4 12:15 Pain Scale: Adult ll1 15:20 Pain Scale: Adult tl4 15:20 Pain Scale: Adult tl4 ED Course: 12:07 Patient arrived in ED. mg5 12:07 Humphrey Sandoval MD is Attending Physician. rn 12:08 Arm band placed on Patient placed in an exam room, on a stretcher. ll1 12:20 Triage completed. ll1 12:51 Logdahl, Se is Primary Nurse. tl4 13:25 CBC with Diff Sent. tl4 13:25 CMP Sent. tl4 13:25 Lipase Sent. tl4 13:26 Urinalysis w/ reflexes Sent. tl4 13:38 Missed attempt(s): 22 gauge in right forearm. Bleeding controlled, band aid applied, ds4 catheter tip intact. 13:51 US Abdomen Limited In Process Unspecified. EDMS 14:01 Urinalysis w/ reflexes Sent. tl4 14:01 Accessed peripheral vein via ultrasound, utilizing dynamic ultrasound technique using tl4 ,sterile technique, per hospital protocol. Clean \T\ dry. Dressing intact. Dressing loose. Site reddened. inserted by Deanne GRAJEDA. Good blood return. Flushes easily. 14:24 CT Abd/Pelvis - IV Contrast Only In Process Unspecified. EDMS 16:57 No provider procedures requiring assistance completed. tl4 16:57 IV discontinued, intact, bleeding controlled, No redness/swelling at site. Pressure tl4 dressing applied. 17:01 Patient has correct armband on for positive identification. Placed in gown. Bed in low tl4 position. Call light in reach. Side rails up X2. Adult w/ patient. Provided Education on: ED process. Administered Medications: 14:00 Drug: NS 0.9% IV 1000 ml IV at 1 bolus Per protocol; 1000 mL bolus Route: IV; Rate: 1 tl4 bolus; Site: left antecubital; 17:03 Follow up: Response: No adverse reaction; IV Status: Completed infusion; IV Intake: tl4 1000ml 14:00 Drug: Famotidine IVP 20 mg IVP once; dilute with 10 mL 0.9% NaCl; give over 2 minutes tl4 Route: IVP; Site: left antecubital; 17:04 Follow up: Response: No adverse reaction tl4 14:00 Drug: Ondansetron IVP 4 mg IVP once; over 2 minutes Route: IVP; Site: left antecubital; tl4 17:04 Follow up: Response: Nausea is decreased tl4 Medication: 16:57 VIS not applicable for this client. tl4 Intake: 17:03 IV: 1000ml; Total: 1000ml. tl4 Outcome: 16:01 Discharge ordered by MD. grajeda 17:01 Discharged to home ambulatory, with family, tl4 17:01 Condition: stable 17:01 Discharge instructions given to patient, family, Instructed on discharge instructions, follow up and referral plans. medication usage, Demonstrated understanding of instructions, follow-up care, medications, 17:03 Patient left the ED. tl4 Signatures: Dispatcher [employer] EDMS Humphrey Sandoval MD MD rn Swanson, Donovan ds4 Vik Edwards RN RN ll1 Shu Putnam mg5 Se [place] tl4 Corrections: (The following items were deleted from the chart) 17:01 13:18 BP 134 / 102; Pulse 75bpm; Resp 16bpm; Pulse Ox 100% RA; tl4 tl4
--- NOTE | 2023-09-12 16:02 | EDPHYS ---
Physician Documentation [facility] Name: Nancie Ordonez Age: 52 yrs Sex: Female : 1970 Arrival Date: 09/12/2023 Time: 12:04 Bed 13 Private MD: ED Physician Humphrey Sandoval HPI: 09/12 13:28 This 52 yrs old Black Female presents to ER via Ambulatory with complaints of Vomiting. rn 13:28 The patient presents to the emergency department with nausea, vomiting, abdominal pain. rn Onset: The symptoms/episode began/occurred 1 week(s) ago. Possible causes: unknown. The symptoms are aggravated by nothing. The symptoms are alleviated by nothing. Severity of symptoms: At their worst the symptoms were moderate in the emergency department the symptoms are unchanged. The patient has not experienced similar symptoms in the past. Patient reports abdominal pain, nausea, vomiting for 1 week. Feels like is getting worse and cannot keep anything down. No fever. No trauma. Has history of gastritis and gastric ulcers. Denies hematemesis or blood in the stool or black stool. 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 - Social history:: Smoking status: Patient denies any tobacco usage or history of. - Family history:: not pertinent. - Hospitalizations: : No recent hospitalization is reported. ROS: 13:28 Constitutional: Negative for fever, chills, and weight loss, Cardiovascular: Negative rn for chest pain, palpitations, and edema, Respiratory: Negative for shortness of breath, cough, wheezing, and pleuritic chest pain, Abdomen/GI: Positive for abdominal pain/nausea/vomiting Back: Negative for injury and pain, : Negative for injury, bleeding, discharge, and swelling, Exam: 13:28 Constitutional: This is a well developed, well nourished patient who is awake, alert, rn and in no acute distress. ENT: Moist mucous membranes Cardiovascular: Regular rate and rhythm. No pulse deficits. Respiratory: No increased work of breathing, no retractions or nasal flaring. Abdomen/GI: Soft, mid epigastric and periumbilical tenderness without rebound or guarding Vital Signs: 12:04 BP 136 / 91; Pulse 80; Resp 16; Pulse Ox 99% on R/A; Pain 8/10; tl4 12:15 BP 136 / 91; Pulse 69; Resp 17; Temp 98; Pulse Ox 100% ; Weight 85.73 kg; Height 5 ft. ll1 3 in. ; Pain 4/10; 13:00 BP 160 / 101; Pulse 94; Resp 16; Pulse Ox 97% on R/A; tl4 14:00 BP 134 / 102; Pulse 75; Resp 16; Pulse Ox 100% on R/A; tl4 15:20 BP 127 / 90; Pulse 77; Resp 18; Pulse Ox 100% on R/A; Pain 6/10; tl4 15:20 BP 132 / 84; Pulse 71; Resp 18; Pulse Ox 100% on R/A; Pain 5/10; tl4 12:15 Body Mass Index 33.48 (85.73 kg, 160.02 cm) ll1 12:04 Pain Scale: Adult tl4 12:15 Pain Scale: Adult ll1 15:20 Pain Scale: Adult tl4 15:20 Pain Scale: Adult tl4 MDM: 12:07 Patient medically screened. rn 16:00 Differential diagnosis: Nonspecific abd pain, gastritis, cholecystitis, pancreatitis, rn appendicitis, diverticulitis, viral gastroenteritis, gastroenteritis. Data reviewed: vital signs, nurses notes, lab test result(s), radiologic studies, CT scan, and as a result, I will discharge patient. Counseling: I had a detailed discussion with the patient and/or guardian regarding the historical points, exam findings, and any diagnostic results supporting the discharge/admit diagnosis, lab results, radiology results, the need for outpatient follow up, to return to the emergency department if symptoms worsen or persist or if there are any questions or concerns that arise at home. Special discussion: Based on the patient's Hx, exam, and Dx evaluation, there is no indication for emergent surgery or inpatient Tx. It is understood by the patient/guardian that if the Sx's persist or worsen they need to return immediately for re-evaluation. I discussed with the patient/guardian in detail that at this point there is no indication for admission to the hospital. It is understood, however, that if the symptoms persist or worsen the patient needs to return immediately for re-evaluation. ED course: No acute findings and workup here. Spoke with patient and daughter regarding better diet, possibility of ulceration or gastritis. Will discharge home with antacids, pain medication, nausea medication and given return precautions. I have personally reviewed all of the results, including but not limited to blood tests and imaging deemed necessary to safely discharge this patient at this time. All results given to and printed out for patient. I personally went over all the results with the patient and answered all questions. Patient will follow-up with PCP and or specialist as discussed. Return precautions given and understood.. 16:00 Response to treatment: the patient's symptoms have markedly improved after treatment, rn and as a result, I will discharge patient. 09/12 12:29 Order name: CBC with Diff; Complete Time: 14:31 rn 09/12 12:29 Order name: CMP; Complete Time: 14: rn 09/12 12:29 Order name: Lipase; Complete Time: 14:31 rn 09/12 12:29 Order name: Urinalysis w/ reflexes; Complete Time: 14:31 rn 09/12 12:29 Order name: CT Abd/Pelvis - IV Contrast Only; Complete Time: 15:42 rn 09/12 12:29 Order name: US Abdomen Limited; Complete Time: 14:31 rn 09/12 12:29 Order name: IV Saline Lock; Complete Time: 14:01 rn 09/12 12:29 Order name: Labs collected and sent; Complete Time: 13:25 rn Administered Medications: 14:00 Drug: NS 0.9% IV 1000 ml IV at 1 bolus Per protocol; 1000 mL bolus Route: IV; Rate: 1 tl4 bolus; Site: left antecubital; 17:03 Follow up: Response: No adverse reaction; IV Status: Completed infusion; IV Intake: tl4 1000ml 14:00 Drug: Famotidine IVP 20 mg IVP once; dilute with 10 mL 0.9% NaCl; give over 2 minutes tl4 Route: IVP; Site: left antecubital; 17:04 Follow up: Response: No adverse reaction tl4 14:00 Drug: Ondansetron IVP 4 mg IVP once; over 2 minutes Route: IVP; Site: left antecubital; tl4 17:04 Follow up: Response: Nausea is decreased tl4 Disposition Summary: 09/12/23 16:01 Discharge Ordered Notes: Location: Home rn Problem: new rn Symptoms: have improved rn Condition: Stable rn Diagnosis - Upper abdominal pain, unspecified rn - Vomiting rn Followup: rn - With: Private Physician - When: As needed - Reason: Recheck today's complaints, Re-evaluation by your physician Discharge Instructions: - Discharge Summary Sheet rn - Abdominal Pain, Adult rn - Gastroesophageal Reflux Disease, Adult rn Forms: - Medication Reconciliation Form rn - Thank You Letter 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 - Prescription Opioid Use rn - Patient Portal Instructions rn - Leadership Thank You Letter rn Prescriptions: - ondansetron 4 mg Oral Tablet,disintegrating - take 1 tablet ORAL route every 8 hours As needed; 12 tablet; Refills: 0, rn Product Selection Permitted - Protonix 40 mg Oral Tablet - take 1 tablet ORAL route once daily; 30 tablet; Refills: 0, Product Selection rn Permitted - Tramadol 50 mg Oral Tablet - take 1 tablet ORAL route every 8 hours as needed; 12 tablet; Refills: 0, rn Product Selection Permitted Signatures: Dispatcher [employer] Humphrey Garvey MD MD rn Lewis, Lynsay, RN RN ll1 Se [place] tl4
== END ==
LOC: ER 12:04
DX: R10.13 Epigastric pain (principal); R11.10 Vomiting, unspecified; K21.9 Gastro-esophageal reflux disease without esophagitis; I10 Essential (primary) hypertension; Z88.6 Allergy status to analgesic agent
CPT/HCPCS: 96361; 85025; 81001; 36415; 83690; 80053; 74177; 76705; 96375; 96374; 99284; Q9967; J2405; J7030

== ENCOUNTER 2023-12-26 14:44 | Emergency (ER) | payer BC ==
--- OUTSIDE RECORDS SUMMARY | 2023-12-26 14:57 | XMS REPORT | Continuity of Care Document ---
Author Name Unknown Address [address] [facility] [address] [place] [address] [facility] Address [address] [facility] [place] [address] Care Team Providers Care Gis Scientist Name Role Phone NONE, NONE Primary Care Physician KAVITHA Avelar Attending Clinician Kavitha Lopez Attending Clinician [phone] Doctor Unassigned, Shafter Attending Clinician U estela [email or web address] Attending Clinician Unavaillindsay AMEZQUITA, DR MURDOCK Attending Clinician Unavail able ALIRIO, DR MURDOCK Attending Clinician Unavail denton WONG, DR MANAN Jamison Attending Clinician Unavaila vignesh WONG, DR MANAN Jamison Attending Clinician Unavaila vignesh LEGGETT, DR TANG Attending Clinician Unavaila vignesh CAMERON, DR PORTILLO Attending Clinician Unavailable CRISTY, DR SESAY Attending Clinician Unavailable OREN TOVAR Attending Clinician Unavailable Oren Tovar MD Attending Clinician [phone] ZELDA OLSEN Attending Clinician Unavailable Yuniel Mccray MD Attending Clinician [phone] Zelda Olsen MD Attending Clinician [phone] ANAYA KLINE Attending Clinician Unavailab pato Manzanares MD, Umm Attending Clinician [phone] Ced Hernández MD Attending Clinician [phone] Jaden Siddiqui ENP Attending Clinician + [phone] DR LORAINE MELO Attending Clinician Julian VITAL, DR GONZALES Attending Clinician GABRIEL Vital Attending Clinician Unavailable Gabriel Garcia MD Attending Clinician [phone] WILMAR MADISON Attending Clinician UnavailWILMAR Santos Attending Clinician Unavaila ble 1, [facility] Sleep Lab Bed Attending Clinician Unavail able Wilmar Madison MD Attending Clinician + [phone] Only, [facility] Test Attending Clinician Unavailable Sobeida Bagley Attending Clinician + [phone] BRO ANN Attending Clinician Unavailable Bro Mejia Attending Clinician + [phone] JADEN SIDDIQUI Attending Clinician Unavailable MAI DEL ROSARIO Attending Clinician Unavailab Mia Greco DO Attending Clinician [phone] JACKLYN GUILLEN Attending Clinician Unavailable Jacklyn Guillen MD Attending Clinician + [phone] Marjan Heart RN Attending Clinician +[phone] GELY HERNANDEZ Attending Clinician Unavailable Gely Hernandez MD Attending Clinician [phone] WILFRID PEARSON Attending Clinician Unavailable Maury Brush MD Attending Clinician [phone] Wilfrid Pearson DO Attending Clinician +[phone] Edelmira Coleman Attending Clinician + [phone] Evelin GRAJEDA, Any Fong Attending Clinician Unavail able FLASH KIMBALL Attending Clinician Unavailab pato Talavera MD, Blanca Attending Clinician [phone] Josie YI, Samir Attending Clinician [phone] Faraz Parada MD Attending Clinician [phone] Paulino YI, Flash Attending Clinician + [phone] GABRIEL SHAIKH Attending Clinician Unavailable GABRIEL SHAIKH Attending Clinician Unavailable MK HERNANDEZ Admitting Clinician Unavailable [email or web address]_S Admitting Clinician Unavaila vignesh AMEZQUITA, DR MURDOCK Admitting Clinician Unavail able JUDITH, DR MANAN Jamison Admitting Clinician Unavaila vignesh LEGGETT, DR TANG Admitting Clinician Unavaila vignesh CAMERON, DR PORTILLO Admitting Clinician Unavailable OLADE, DR SESAY Admitting Clinician Unavailable OREN TOVAR Admitting Clinician Unavailable ZELDA OLSEN Admitting Clinician Unavailable Raúl YI, Zelda Admitting Clinician [phone] ANAYA KLINE Admitting Clinician Unavailab pato MELO, DR LORAINE SPEARS Admitting Clinician Unajagdeep VITAL, DR GONZALES Admitting Clinician GABRIEL Vital Admitting Clinician Unavailable BRO ANN Admitting Clinician Unavailable JADEN SIDDIQUI Admitting Clinician Unavailable MAI DEL ROSARIO Admitting Clinician Unavailab JACKLYN Figueroa Admitting Clinician Unavailable GELY HERNANDEZ Admitting Clinician Unavailable Tasha YI, Gely Admitting Clinician [phone] HARPALIMWILFRID RAMEY Admitting Clinician Unavailable TeqwimWilfrid ramey DO Admitting Clinician +[phone] FARAZ PARADA Admitting Clinician Unavailable Jennifer YI, Faraz Admitting Clinician [phone] Payers Payer Name Policy Type Policy Number Effective Date Expirati on Date Source [facility] [id number] 2023 00:00:00 0111 [id number] 2023 00:00:00 1014 [id number] 1959 00:00:00 Problems Condition Name Condition Details Condition Category Status Onset Date Resolution Date Last Treatment Date Treating Clinician Comments Source Chest pain, unspecifie d type Chest pain, unspecifie d type Disease Active 3-05 00:00: 00 [facility] SOB (shortness of breath) SOB (shortness of breath) Disease Active 2021-09 0-23 00:00: 00 [facility] Chest pain Chest pain Disease Active 2021-09 0-22 00:00: 00 [facility] Transient alteration of awareness Transient alteration of awareness Disease Active 6-25 00:00: 00 [facility] Transient alteration of awareness Transient alteration of awareness Disease Active 6-25 00:00: 00 [facility] Gastric ulcer Gastric ulcer Disease Active 6-22 00:00: 00 [facility] Pneumonia Pneumonia Disease Active 4-04 00:00: 00 [facility] Acute asthma exacerbati on Acute asthma exacerbati on Disease Active 4-02 00:00: 00 [facility] Sepsis Sepsis Disease Active 3-09 00:00: 00 [facility] Morbid obesity with body mass index of 40.0-49.9 Morbid obesity with body mass index of 40.0-49.9 Disease Active 2-14 00:00: 00 [facility] Obesity (BMI 30-39.9) Obesity (BMI 30-39.9) Disease Active 2-12 00:00: 00 [facility] Acute hypoxemic respirator y failure Acute hypoxemic respirator y failure Disease Active 2-12 00:00: 00 [facility] 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 Disease Active 2-04 00:00: 00 [facility] Dyslipidem ia Dyslipidem ia Disease Active 2-04 00:00: 00 [facility] Gastro-eso phageal reflux disease with esophagiti s, with bleeding Gastro-eso phageal reflux disease with esophagiti s, with bleeding Disease Active 2022-0 2-04 00:00: 00 [facility] Generalize d anxiety disorder Generalize d anxiety disorder Disease Active 2-04 00:00: 00 [facility] Pain of cervical spine Pain of cervical spine Disease Active 2-04 00:00: 00 [facility] Depo-Prove ra contracept lloyd status Depo-Prove ra contracept lloyd status Disease Active 12-14 00:00: 00 [facility] Eczema Eczema Disease Active 04-15 00:00: 00 [facility] Essential hypertensi on Essential hypertensi on Disease Active 04-15 00:00: 00 [facility] Back pain Back pain Disease Active 10-09 00:00: 00 [facility] Allergies, Adverse Reactions, Alerts Allergy Name Allergy Type Status Severity Reaction(s) Onset Date Inactive Date Treating Clinician Comments Source IBUPROFE N DRUG INGREDI Active Other-Cmnt 4- 00:00: 00 [facility] Ibuprofe n Propensi ty to adverse reaction s Active Other - See comments 4-09 00:00: 00 ulcer [facility] IBUPROFE N-ACETAM INOPHEN DRUG Active SOB 2021-09 0-23 00:00: 00 [facility] Ibuprofe n-Acetam inophen Propensi ty to adverse reaction s Active Shortness of Breath 2021-09 0-23 00:00: 00 [facility] Naproxen - Oral Propensi ty to adverse reaction to drug Active 5-28 00:00: 00 SEAFOOD/ FISH Food Active High Anaphylaxis 0 4-02 00:00: 00 [facility] Seafood/ Fish Food Allergy Active Anaphylaxis 4-02 00:00: 00 Pts tongue swells/ difficult y breathing [facility] Nsaids (Non-Madan roidal Anti-Inf lammator y Drug) Propensi ty to adverse reaction s Active Unknown - See comments 2-12 00:00: 00 [facility] NSAIDS (NON-MADAN ROIDAL ANTI-INF LAMMATOR Y DRUG) Drug Class Active Unknown-Cmnt 10-15 00:00: 00 [facility] Nsaids (Non-Madan roidal Anti-Inf lammator y Drug) Propensi ty to adverse reaction s Active Unknown - See comments 10-15 00:00: 00 [facility] Nsaids (Non-Madan roidal Anti-Inf lammator y Drug) Propensi ty to adverse reaction s Active Unknown - See comments 10-15 00:00: 00 [facility] Naproxen Propensi ty to adverse reaction to drug Active 10-25 00:00: 00 naproxen DA Active SV 10-30 00:00: 00 [facility] Naproxen Drug Allergy Active Other - See comments 03-11 00:00: 00 Swelling of tongueSwe lling of the tongue [facility] Naproxen Propensi ty to adverse reaction s to drug Active Swelling 03-11 00:00: 00 Swelling of tongue [facility] NAPROXEN DRUG INGREDI Active High Swelling 03-11 00:00: 00 [facility] Naproxen DA Active Unknown [facility] Ibuprofe n DA Active Unknown [facility] Social History Social Habit Start Date Stop Date Quantity Comments Source History SDOH Alcohol Std Drinks [facility] History SDOH Alcohol Binge [facility] SD[facility] Alcohol Frequency [facility] Exposure to SARS-CoV-2 (event) 2022-11-30 00:00:00 2022-12-10 19:00:00 Not sure [facility] Alcohol intake 2021-11-10 00:00:00 2021-11-10 00:00:00 Current drinker of alcohol (finding) [facility] History of Social function 2021-10-21 00:00:00 2021-10-21 00:00:00 [facility] Education - What is the highest level of school you have completed or the highest degree you have received? 2021-10-15 00:00:2021-10-15 00:00:00 12th grade [facility] Tobacco Comment 2021-10-15 00:00:00 2021-10-15 00:00:00 30 years ago [facility] Cigarettes smoked current (pack per day) - Reported 2021-10-15 00:00:00 2021-10-15 00:00:00 [facility] Cigarette pack-years 2021-10-15 00:00:00 2021-10-15 00:00:00 [facility] Tobacco use and exposure 2021-10-15 00:00:00 2021-10-15 00:00:00 Smokeless tobacco non-user [facility] Alcohol Comment 2016-12-14 00:00:00 2016-12-14 00:00:00 infrequent - family parties, wine, 12 oz/time [facility] History of tobacco use 2001-12-14 00:00:00 Cigarette Smoker [facility] Sex Assigned At 1970 00:00:00 1970 00:00:00 [facility] Smoking Status Start Date Stop Date Source Ex-smoker 2021-10-15 00:00:00 2021-10-15 [facility] Ordered Medication Name Filled Medication Name Start Date Stop Date Current Medication? Ordering Clinician Indication Dosage Frequency Signature (SIG) Comments Components Source ondansetron (ZOFRAN-ODT ) disintegrat ing tablet 4 mg 12-11 02:30: 00 12-11 01:43 :00 No 4mg 4 mg, Oral, ONCE, 1 dose, On 12/10/22 at 2130, [facility] predniSONE (DELTASONE) tablet 40 mg 12-11 01:45: 00 12-11 01:43 :00 No 40mg 40 mg, Oral, ONCE, 1 dose, On 12/10/22 at 2045, [facility] HYDROcodone -acetaminop hen (NORCO 5) 5-325 mg tablet 1 tablet 12-11 01:45: 00 12-11 01:43 :00 No 1{tbl} 1 tablet, Oral, ONCE, 1 dose, On Sun /9/23 at 2045, SE [facility] ondansetron 4 mg disintegrat ing tablet 12-10 00:00: 00 Yes [id number] 4mg Take 1 tablet by mouth every 4 (four) hours as needed for Nausea and Vomiting (N/V). [facility] predniSONE 20 mg tablet 12-10 00:00: 00 12-16 04:59 :00 No [id number] 40mg Take 2 tablets by mouth in the morning for 5 days. [facility] carvediloL (COREG) tablet 3.125 mg 11-05 23:00: 00 Yes 3.125mg 3.125 mg, Oral, BID MEALS, First dose on Sun11/05/22 at 1700, Until Discontinu ed, Routine [facility] enoxaparin (LOVENOX) injection 40 mg 11-05 23:00: 00 Yes 40mg 40 mg, Subcutaneo us, DAILY, First dose on Sun11/05/22 at 1700, Until Discontinu ed, Routine [facility] hydrOXYzine 25 mg tablet 11-05 17:13: 13 Yes 25mg Take 1 tablet by mouth. [facility] lisinopriL 20 mg tablet 11-05 17:13: 13 Yes 20mg Take 1 tablet by mouth in the morning. [facility] gabapentin 100 mg capsule 11-05 17:13: 13 Yes 100mg Take 1 capsule by mouth in the morning and 1 capsule in the evening. [facility] acetaminoph en-codeine (TYLENOL-CO DEINE #4) 300-60 mg tablet 11-05 17:13: 13 Yes 1{tbl} Take 1 tablet by mouth every 4 (four) hours as needed for Pain. [facility] celecoxib (CELEBREX) 50 mg capsule 11-05 17:13: 13 Yes 50mg Take 1 capsule by mouth in the morning. [facility] amLODIPine (NORVASC) tablet 10 mg 11-05 15:00: 00 Yes 10mg 10 mg, Oral, DAILY, First dose on Sun11/05/22 at 0900, Until Discontinu ed, Routine [facility] metoprolol tartrate (LOPRESSOR) tablet 25 mg 11-05 14:00: 00 11-05 17:41 :07 No 25mg 25 mg, Oral, TID, First dose on Sun11/05/22 at 0800, Until Discontinu ed, Routine [facility] traMADoL (ULTRAM) tablet 50 mg 11-05 13:36: 11 11-07 13:35 :11 No 50mg 50 mg, Oral, Q6HPRN, Starting on Sun11/05/22 at 0736, Until Sun11/07/22 at 0735, Routine, Pain (scale 7-10) [facility] ondansetron (ZOFRAN (PF)) injection 4 mg 11-05 13:35: 52 11-07 13:34 :52 No 4mg 4 mg, Slow IV Push, Q6HPRN, Starting on Sun11/05/22 at 0735, Until Sun11/07/22 at 0734, Routine, Nausea and Vomiting (N/V) [facility] acetaminoph en (TYLENOL) tablet 650 mg 11-05 11:26: 43 Yes 650mg 650 mg, Oral, Q6HPRN, Starting on Sun11/05/22 at 0526, Until Discontinu ed, Routine, Pain (scale 1-3) [facility] zolpidem (AMBIEN) tablet 10 mg 11-05 11:25: 41 Yes 10mg 10 mg, Oral, QHSPRN, Starting on Sun11/05/22 at 0525, Until Discontinu ed, Routine, Insomnia [facility] ALPRAZolam (XANAX) tablet 1 mg 11-05 11:25: 00 Yes 1mg 1 mg, Oral, TIDPRN, Starting on 11/05/22 at 0525, Until Discontinu ed, Routine, Anxiety [facility] morpHINE (4 mg/mL) injection 4 mg 11-05 10:45: 00 11-05 10:08 :00 No 4mg 4 mg, Slow IV Push, ONCE, 1 dose, On 11/05/22 at 0445, [facility] proMETHazin e (PHENERGAN) 12.5 mg in NS 50 mL IV piggyback (CNR) 11-05 09:15: 00 11-05 10:05 :00 No 12.5mg 12.5 mg, IV Piggyback, at 200 mL/hr Administer over 15 Minutes, ONCE, 1 dose, On 11/05/22 at 0315, [facility] iopamidol (ISOVUE 370-500 mL) injection 85 mL 11-05 08:55: 00 11-05 09:15 :00 No [id number] 85mL 85 mL, Intravenou s, ONCE, 1 dose, On 11/05/22 at 0315, Routine [facility] ondansetron (ZOFRAN (PF)) injection 4 mg 11-05 05:00: 00 11-05 07:12 :00 No 4mg 4 mg, Slow IV Push, ONCE, 1 dose, On 11/04/22 at 2300, [facility] morpHINE (4 mg/mL) injection 4 mg 11-05 05:00: 00 11-05 07:12 :00 No 4mg 4 mg, Slow IV Push, ONCE, 1 dose, On 11/04/22 at 2300, [facility] carvediloL 3.125 mg tablet 11-05 00:00: 00 12-06 04:59 :00 No [id number] 3.125mg Take 1 tablet by mouth in the morning and 1 tablet in the evening. Take with meals. Do all this for 30 days. [facility] hydrOXYzine 25 mg tablet 2021-09 14:01: 35 Yes 25mg Take 25 mg by mouth. [facility] traMADoL (ULTRAM) tablet 100 mg 2021-09 04:05: 40 07-28 05:41 :29 No 100mg 100 mg, Oral, Q8HPRN, Starting on Sun07/26/22 at 2205, Until Nicole 07/27/22 at 2341, Routine, Pain (scale 4-6) [facility] metoprolol tartrate 25 mg tablet 2021-09 00:00: 00 11-05 00:00 :00 No [id number] 25mg Take 1 tablet by mouth in the morning and 1 tablet at noon and 1 tablet in the evening. [facility] traMADoL 100 mg Tab 2021-09 00:00: 00 08-04 05:59 :00 No [id number] 100mg Take 100 mg by mouth every 8 (eight) hours as needed for Pain (scale 4-6) for up to 7 days. Indication s: acute pain [facility] metoprolol tartrate (LOPRESSOR) tablet 25 mg 2021-09 20:00: 00 Yes 25mg 25 mg, Oral, TID, First dose (after last modificati on) on Sun07/26/22 at 1400, Until Discontinu ed, Routine [facility] furosemide (LASIX) injection 40 mg 2021-09 18:00: 00 07-26 18:10 :00 No 40mg 40 mg, Slow IV Push, ONCE, 1 dose, On Sun07/26/22 at 1200, Routine [facility] metoprolol tartrate (LOPRESSOR) tablet 25 mg 2021-09 15:30: 00 07-26 17:08 :02 No 25mg 25 mg, Oral, BID, First dose on Sun07/26/22 at 0930, Until Discontinu ed, Routine [facility] enoxaparin (LOVENOX) injection 40 mg 2021-09 15:00: 00 Yes 40mg 40 mg, Subcutaneo us, DAILY, First dose on Sun07/26/22 at 0900, Until Discontinu ed, Routine [facility] amLODIPine (NORVASC) tablet 10 mg 2021-09 15:00: 00 07-26 15:21 :17 No 10mg 10 mg, Oral, DAILY, First dose on Sun07/26/22 at 0900, Until Discontinu ed, Routine [facility] methocarbam oL (ROBAXIN) tablet 500 mg 2021-09 14:00: 00 Yes 500mg 500 mg, Oral, BID, First dose on Sun07/26/22 at 0800, Until Discontinu ed, Routine [facility] ondansetron (ZOFRAN (PF)) injection 4 mg 2021-09 05:42: 35 Yes 4mg 4 mg, Slow IV Push, Q6HPRN, Starting on Sun07/25/22 at 2342, Until Discontinu ed, Routine, Nausea and Vomiting (N/V) [facility] FENTanyl PF (SUBLIMAZE (PF)) injection 50 mcg 2021-09 05:42: 32 07-27 05:41 :32 No 50ug 50 mcg, Slow IV Push, Q3HPRN, Starting on Sun07/25/22 at 2342, Until Sun07/26/22 at 2341, Routine, Pain (scale 7-10) [facility] traMADoL (ULTRAM) tablet 50 mg 2021-09 05:42: 29 07-27 04:05 :58 No 50mg 50 mg, Oral, Q8HPRN, Starting on Sun07/25/22 at 2342, Until Sun07/26/22 at 2205, Routine, Pain (scale 4-6) [facility] ondansetron (ZOFRAN (PF)) injection 4 mg 2021-09 05:00: 00 07-26 04:23 :00 No 4mg 4 mg, Slow IV Push, ONCE, 1 dose, On Sun07/25/22 at 2300, SE [facility] morpHINE (4 mg/mL) injection 4 mg 2021-09 05:00: 00 07-26 04:23 :00 No 4mg 4 mg, Slow IV Push, ONCE, 1 dose, On Sun07/25/22 at 2300, SE [facility] iopamidol (ISOVUE 370-500 mL) injection 100 mL 2021-09 04:15: 00 07-26 03:20 :00 No [id number] 100mL 100 mL, Intravenou s, ONCE, 1 dose, On Sun07/25/22 at 2215, Routine [facility] morpHINE (2 mg/mL) injection 2 mg 2021-09 02:45: 00 07-26 02:36 :00 No 2mg 2 mg, Slow IV Push, ONCE, 1 dose, On Sun07/25/22 at 2045, STAT [facility] metoprolol tartrate 25 mg tablet 2021-09 00:00: 00 07-27 00:00 :00 No [id number] 25mg Take 1 tablet by mouth in the morning and 1 tablet in the evening. [facility] celecoxib (CELEBREX) 100 mg capsule 2021-09 06:18: 06-26 00:00 :00 No 100mg Take 100 mg by mouth 2 (two) times daily with meals. [facility] amLODIPine 10 mg tablet 2021-09 06:18: 06-26 00:00 :00 No 10mg Take 10 mg by mouth daily. [facility] FLUoxetine 10 mg capsule 2021-09 06:18: 06-26 00:00 :00 No 10mg Take 10 mg by mouth daily. [facility] traMADoL 100 mg capsule 2021-09 06:18: 50 06-26 00:00 :00 No 100mg Take 100 mg by mouth every 6 (six) hours as needed. [facility] famotidine (PEPCID AC) tablet 20 mg 2021-09 05:30: 00 Yes 20mg 20 mg, Oral, BID, First dose on Sun06/26/22 at 0030, Until Discontinu ed, Routine [facility] ceFEPIme (MAXIPIME) 1,000 mg in [...] y
Durat ion of therapy: 72 hours [facility] furosemide (LASIX) injection 40 mg 2021-09 14:00: 00 Yes 40mg 40 mg, Slow IV Push, DAILY, First dose on Sun06/25/22 at 0900, Until Discontinu ed, Routine [facility] enoxaparin (LOVENOX) injection 40 mg 2021-09 14:00: 00 Yes 40mg 40 mg, Subcutaneo us, DAILY, First dose on Sun06/25/22 at 0900, Until Discontinu ed, Routine [facility] amLODIPine (NORVASC) tablet 10 mg 2021-09 14:00: 00 Yes 10mg 10 mg, Oral, DAILY, First dose on Sun06/25/22 at 0900, Until Discontinu ed, Routine [facility] azithromyci n (ZITHROMAX) tablet 500 mg 2021-09 14:00: 00 06-28 13:59 :00 No 500mg 500 mg, Oral, DAILY, 3 doses, First dose on Sun06/25/22 at 0900, Last dose on Sun06/27/22 at 0900, SE
Re ason for Anti-Infec tive: Empiric Therapy for Suspected Infection< br>Empiric Therapy Site: Respirator y
Durat ion of therapy: 72 hours [facility] ceFEPIme (MAXIPIME) 1,000 mg in NaCl 0.9% (NS) 50 mL MINI-BAG 2021-09 13:30: 00 06-25 14:00 :00 No 1000mg 1,000 mg, IV Piggyback, ONCE, 1 dose, On Sun06/25/22 at 0830, Administer over 30 Minutes, 50 mL
Reas on for Anti-Infec tive: Empiric Therapy for Suspected Infection< br>Empiric Therapy Site: Respirator y
Durat ion of therapy: 72 hours [facility] losartan (COZAAR) tablet 50 mg 2021-09 13:00: 00 Yes 50mg 50 mg, Oral, BID, First dose on Sun06/25/22 at 0800, Until Discontinu ed, [facility] methylPREDN ISolone sod succ (SOLU-MEDRO L (PF)) injection 40 mg 2021-09 13:00: 00 Yes 40mg 40 mg, Slow IV Push, Q12H, First dose on 06/25/22 at 0800, Until Discontinu ed, Routine [facility] morpHINE (2 mg/mL) injection 2 mg 2021-09 11:02: 17 Yes 2mg 2 mg, Slow IV Push, Q6HPRN, Starting on 06/25/22 at 0602, Until Discontinu ed, Routine, Pain (scale 7-10) [facility] iopamidol (ISOVUE 370-500 mL) injection 100 mL 2021-09 07:59: 00 06-25 07:59 :00 No [id number] 100mL 100 mL, Intravenou s, ONCE, 1 dose, On 06/25/22 at 0315, Routine [facility] traMADoL (ULTRAM) tablet 50 mg 2021-09 07:36: 43 Yes 50mg 50 mg, Oral, Q6HPRN, Starting on Sun06/25/22 at 0236, Until Discontinu ed, Routine, Pain (scale 4-6) [facility] morpHINE (4 mg/mL) injection 4 mg 2021-09 05:15: 00 06-25 04:46 :00 No 4mg 4 mg, Slow IV Push, ONCE, 1 dose, On 06/25/22 at 0015, SE [facility] furosemide (LASIX) injection 40 mg 2021-09 04:30: 00 06-25 04:46 :00 No 40mg 40 mg, IV Push, ONCE, 1 dose, On 06/24/22 at 2330, [facility] ondansetron (ZOFRAN (PF)) injection 4 mg 2021-09 04:29: 13 Yes 4mg 4 mg, Slow IV Push, Q6HPRN, Starting on 06/24/22 at 2329, Until Discontinu ed, Routine, Nausea and Vomiting (N/V) [facility] acetaminoph en (TYLENOL) tablet 650 mg 2021-09 04:29: 07 Yes 650mg 650 mg, Oral, Q6HPRN, Starting on 06/24/22 at 2329, Until Discontinu ed, Routine, Pain (scale 1-3) [facility] ondansetron (ZOFRAN-ODT ) disintegrat ing tablet 4 mg 06-01 02:45: 00 06-01 01:44 :00 No 4mg 4 mg, Oral, ONCE, 1 dose, On Sun05/31/22 at 2145, [facility] HYDROcodone -acetaminop hen (NORCO) 10-325 mg tablet 1 tablet 06-01 02:45: 00 06-01 01:45 :00 No 1{tbl} 1 tablet, Oral, ONCE, 1 dose, On Sun05/31/22 at 2145, [facility] HYDROcodone -acetaminop hen 5-325 mg tablet 05-31 00:00: 00 06-08 04:59 :00 No [id number] 1{tbl} Take 1 tablet by mouth every 6 (six) hours as needed for Pain (scale 7-10) for up to 7 days. Indication s: acute pain [facility] Cholecalcif shanti, Vitamin D3, 1,250 mcg (50,000 unit) capsule 03-16 00:00: 00 Yes [facility] enoxaparin (LOVENOX) injection 40 mg 02-26 14:00: 00 Yes 40mg 40 mg, Subcutaneo us, DAILY, First dose on 02/26/22 at 0900, Until Discontinu ed, Routine [facility] amLODIPine (NORVASC) tablet 10 mg 02-26 14:00: 00 Yes 10mg 10 mg, Oral, DAILY, First dose on [place] 02/26/22 at 0900, Until Discontinu ed, Routine [facility] celecoxib (CELEBREX) 100 mg capsule 02-26 12:37: 35 Yes 100mg Take 100 mg by mouth 2 (two) times daily with meals. [facility] amLODIPine 10 mg tablet 02-26 12:37: 35 Yes 10mg Take 10 mg by mouth daily. [facility] FLUoxetine 10 mg capsule 02-26 12:37: 35 Yes 10mg Take 10 mg by mouth daily. [facility] traMADoL 100 mg capsule 02-26 12:37: 35 Yes 100mg Take 100 mg by mouth every 6 (six) hours as needed. [facility] ondansetron (ZOFRAN (PF)) injection 4 mg 02-26 04:30: 54 Yes 4mg 4 mg, Slow IV Push, Q6HPRN, Starting on 02/25/22 at 2330, Until Discontinu ed, Routine, Nausea and Vomiting (N/V) [facility] acetaminoph en (TYLENOL) tablet 650 mg 02-26 04:30: 45 Yes 650mg 650 mg, Oral, Q6HPRN, Starting on 02/25/22 at 2330, Until Discontinu ed, Routine, Pain (scale 1-3) [facility] ondansetron (ZOFRAN (PF)) injection 4 mg 02-23 05:45: 00 02-23 04:58 :00 No 4mg 4 mg, Slow IV Push, ONCE, 1 dose, On [place] 02/23/22 at 0045, SE [facility] morpHINE (4 mg/mL) injection 4 mg 02-23 05:45: 00 02-23 04:58 :00 No 4mg 4 mg, Slow IV Push, ONCE, 1 dose, On Sun22 at 0045, STAT [facility] acetaminoph en (TYLENOL) tablet 1,000 mg 02-23 04:00: 00 02-23 03:13 :00 No 1000mg 1,000 mg, Oral, ONCE, 1 dose, On Sun02/22/22 at 2300, SE [facility] methocarbam oL (ROBAXIN) tablet 1,000 mg 02-23 04:00: 00 02-23 03:14 :00 No 1000mg 1,000 mg, Oral, ONCE, 1 dose, On Sun02/22/22 at 2300, [facility] ipratropium -albuteroL (DUONEB) 0.5 mg-3 mg(2.5 mg base)/3 mL nebulizer solution 3 mL 01-29 14:15: 00 01-29 14:06 :00 No 3mL 3 mL, Inhalation , ONCE NOW, 1 dose, On Sun01/29/22 at 0915, Routine [facility] albuterol (PROVENTIL) 2.5 mg /3 mL (0.083 %) nebulizer solution 5 mg 01-29 14:15: 00 01-29 13:42 :00 No 5mg 5 mg, Inhalation , ONCE, 1 dose, [facility]22 [facility] 0915[facility] (SUBLIMAZE (PF)) injection 50 mcg 01-03 04:45: 00 01-03 04:36 :00 No 50ug 50 mcg, Intramuscu lar, ONCE, 1 dose, On 01/02/22 at 2345, Routine [facility] celecoxib (CELEBREX) 100 mg capsule 12-07 12:53: 05 Yes 100mg Take 100 mg by mouth 2 (two) times daily with meals. [facility] amLODIPine 10 mg tablet 12-07 12:53: 05 Yes 10mg Take 10 mg by mouth daily. [facility] FLUoxetine 10 mg capsule 12-07 12:53: 05 Yes 10mg Take 10 mg by mouth daily. [facility] traMADoL 100 mg capsule 12-07 12:53: 05 Yes 100mg Take 100 mg by mouth every 6 (six) hours as needed. [facility] predniSONE 10 mg tablet 12-07 10:31: 12-07 00:00 :00 No 10mg Take 10 mg by mouth daily. [facility] hydrALAZINE 100 mg tablet 12-07 10:31: 12-07 00:00 :00 No 100mg Take 100 mg by mouth 2 (two) times daily. [facility] cefTRIAXone (ROCEPHIN) injection 2,000 mg 12-07 05:00: 00 12-12 04:59 :00 No 2000mg 2,000 mg, Intravenou s, Q24H ABX, 5 doses, First dose on Sun12/07/21 at 0000, Last dose on Sun12/11/21 at 0000
Re ason for Anti-Infec tive: Documented Infection< br>Documen britney Infection Site: Respirator y
Durat ion of Therapy: 7 days [facility] predniSONE 10 mg tablet 12-07 00:00: 00 12-23 04:59 :00 No [id number] Take 2 tablets by mouth daily for 5 days, THEN 1 tablet daily for 5 days, THEN 0.5 tablets daily for 5 days. [facility] azithromyci n 500 mg tablet 12-07 00:00: 00 12-10 04:59 :00 No [id number] 500mg Take 1 tablet by mouth daily for 2 days. [facility] traMADoL (ULTRAM) tablet 50 mg 12-06 16:44: 28 Yes 50mg 50 mg, Oral, Q6HPRN, Starting on Sun12/06/21 at 1144, Until Discontinu ed, Routine, Pain (scale 4-6) [facility] ALPRAZolam (XANAX) tablet 0.5 mg 12-06 16:43: 05 Yes .5mg 0.5 mg, Oral, BIDPRN, Starting on Sun12/06/21 at 1143, Until Discontinu ed, Routine, anxiety [facility] HYDROcodone -acetaminop hen (NORCO 5) 5-325 mg tablet 1 tablet 12-06 16:42: 38 Yes 1{tbl} 1 tablet, Oral, Q6HPRN, Starting on Sun12/06/21 at 1142, Until Discontinu ed, Routine, Pain (scale 7-10) [facility] azithromyci n (ZITHROMAX) 500 mg [...]
Durat ion of therapy: 72 hours [facility] KCL (KLOR-CON M20) tablet 40 mEq 12-06 14:00: 00 Yes 40meq 40 mEq, Oral, DAILY, First dose on Sun12/06/21 at 0900, Until Discontinu ed, Routine [facility] enoxaparin (LOVENOX) injection 40 mg 12-06 14:00: 00 Yes 40mg 40 mg, Subcutaneo us, Q24H, First dose on Sun12/06/21 at 0900, Until Discontinu ed, Routine [facility] predniSONE (DELTASONE) tablet 20 mg 12-06 14:00: 00 Yes 20mg 20 mg, Oral, DAILY, First dose on Sun12/06/21 at 0900, Until Discontinu ed, Routine [facility] FLUoxetine (PROZAC) capsule 20 mg 12-06 14:00: 00 Yes 20mg 20 mg, Oral, DAILY, First dose on Sun12/06/21 at 0900, Until Discontinu ed, Routine [facility] amLODIPine (NORVASC) tablet 5 mg 12-06 14:00: 00 Yes 5mg 5 mg, Oral, DAILY, First dose on Sun12/06/21 at 0900, Until Discontinu ed, Routine [facility] magnesium oxide (MAG-OX 400) tablet 400 mg 12-06 13:00: 00 Yes 400mg 400 mg, Oral, BID, First dose on Sun12/06/21 at 0800, Until Discontinu ed, Routine [facility] ipratropium -albuteroL (DUONEB) 0.5 mg-3 mg(2.5 mg base)/3 mL nebulizer solution 3 mL 12-06 13:00: 00 Yes 3mL 3 mL, Inhalation , QID, First dose on Sun12/06/21 at 0800, Until Discontinu ed, Routine [facility] lactobacill us acidophilus tablet 0.5 mg 12-06 13:00: 00 Yes .5mg 0.5 mg, Oral, BID, First dose on Sun12/06/21 at 0800, Until Discontinu ed, Routine [facility] levoFLOXaci n in D5W (LEVAQUIN) 750 mg/150 [...]
Re stricted use approved by: [employer] PROVIDER [facility] traMADoL (ULTRAM) tablet 50 mg 12-06 08:14: 42 12-06 16:44 :40 No 50mg 50 mg, Oral, Q6HPRN, Starting on Sun12/06/21 at 0314, Until Sun12/06/21 at 1144, Routine, Pain (scale 7-10) [facility] HYDROcodone -acetaminop hen (NORCO) 10-325 mg tablet 1 tablet 12-06 06:00: 00 12-06 04:59 :00 No 1{tbl} 1 tablet, Oral, ONCE, 1 dose, On Sun12/06/21 at 0100, Routine [facility] fluticasone propion-lavon meteroL (ADVAIR) 250-50 mcg/dose inhalation disk 1 Puff 12-05 13:00: 00 Yes 1{puff} 1 Puff, Inhalation , Q12H, First dose on Sun12/05/21 at 0800, Until Discontinu ed, Routine [facility] lurasidone HCl (LATUDA ORAL) 12-05 05:43: 55 12-05 00:00 :00 No Take by mouth. [facility] acetylcyste ine (MUCOMYST) 200 mg/mL (20 %) solution 800 mg 12-05 05:00: 00 12-08 04:59 :00 No 4mL 800 mg (4 mL), Inhalation , Q6H, 12 doses, First dose on Sun12/05/21 at 0000, Last dose on Sun12/07/21 at 1800, Routine [facility] cefTRIAXone (ROCEPHIN) 1,000 mg in NaCl 0.9% (NS) 50 mL MINI-BAG 12-05 03:00: 00 Yes 1000mg 1,000 mg, IV Piggyback, Q24H ABX, First dose on Sun12/04/21 at 2200, Until Discontinu ed, Administer over 30 Minutes, 50 mL
Reas on for Anti-Infec tive: Empiric Therapy for Suspected Infection& lt;br>Empi leandro Therapy Site: Respirator y
Durat ion of therapy: 72 hours [facility] ipratropium -albuteroL (DUONEB) 0.5 mg-3 mg(2.5 mg base)/3 mL nebulizer solution 3 mL 12-05 02:00: 00 Yes 3mL 3 mL, Inhalation , Q6HPRN, Starting on Sun12/04/21 at 2100, Until Discontinu ed, Routine, Wheezing [facility] methylpredn isolone sod succ (SOLU-MEDRO L) injection 60 mg 12-05 02:00: 00 Yes 60mg 60 mg, Slow IV Push, Q12H, First dose on Sun12/04/21 at 2100, Until Discontinu ed, Routine [facility] HYDROcodone -acetaminop hen (NORCO) 10-325 mg tablet 1 tablet 12-05 01:55: 51 Yes 1{tbl} 1 tablet, Oral, Q6HPRN, Starting on 12/04/21 at 2055, Until Discontinu ed, Routine, Pain (scale 4-6) [facility] iopamidol (ISOVUE 370-500 mL) injection 100 mL 12-04 20:43: 00 12-04 20:43 :00 No [id number] 100mL 100 mL, Intravenou s, ONCE, 1 dose, On 12/04/21 at 1600, Routine [facility] enoxaparin (LOVENOX) injection 40 mg 12-04 14:00: 00 Yes 40mg 40 mg, Subcutaneo us, DAILY, First dose on 12/04/21 at 0900, Until Discontinu ed, Routine [facility] amLODIPine (NORVASC) tablet 5 mg 12-04 14:00: 00 Yes 5mg 5 mg, Oral, DAILY, First dose on 12/04/21 at 0900, Until Discontinu ed, Routine [facility] predniSONE (DELTASONE) tablet 20 mg 12-04 14:00: 00 12-05 01:54 :23 No 20mg 20 mg, Oral, DAILY, First dose on 12/04/21 at 0900, Until Discontinu ed, Routine [facility] lurasidone (LATUDA) tablet 20 mg 12-04 12:30: 00 Yes 20mg 20 mg, Oral, [facility]-0730, First dose on 12/04/21 at 0730, Until [facility]continu ed [facility]cl[facility] (Vibramycin ) capsule 100 mg 12-04 11:00: 00 Yes 100mg 100 mg, Oral, Q12HA2, First dose on [place] 12/04/21 at 0600, Until Discontinu ed, SE
Re ason for Anti-Infec tive: Empiric Therapy for Suspected Infection< br>Empiric Therapy Site: Respirator y
Durat ion of therapy: 7 days [facility] NaCl 0.9% (NS) IV infusion 500 mL 12-04 11:00: 00 12-04 15:59 :00 No 500mL at 100 mL/hr, IV Infusion, CONTINUOUS , Starting on [place] 12/04/21 at 0600, Until [place] 12/04/21 at 1059, [facility]ine [facility] zolpidem (AMBIEN) tablet 5 mg 12-04 06:14: 57 Yes 5mg 5 mg, Oral, QHSPRN, Starting on [place] 12/04/21 at 0114, Until Discontinu ed, Routine, Insomnia [facility] docusate (COLACE) capsule 100 mg 12-04 01:00: 00 Yes 100mg 100 mg, Oral, BID, First dose on [facility] 12/03/21 at 1999, Until Discontinu ed, Routine [facility] busPIRone (BUSPAR) tablet 5 mg 12-04 01:00: 00 Yes 5mg 5 mg, Oral, BID, First dose on [facility] 12/03/21 at 1999, Until Discontinu ed, Routine [facility] ipratropium -albuteroL (DUONEB) 0.5 mg-3 mg(2.5 mg base)/3 mL nebulizer solution 3 mL 12-04 01:00: 00 12-05 01:56 :47 No 3mL 3 mL, Inhalation , QID, First dose on 12/03/21 at 1999, Until Discontinu ed, Routine [facility] ondansetron (ZOFRAN (PF)) injection 4 mg 12-03 22:05: 11 Yes 4mg 4 mg, Slow IV Push, Q6HPRN, Starting on 12/03/21 at 1705, Until Discontinu ed, Routine, Nausea and Vomiting (N/V) [facility] HYDROcodone -acetaminop hen (NORCO 5) 5-325 mg tablet 1 tablet 12-03 22:05: 07 12-05 01:56 :02 No 1{tbl} 1 tablet, Oral, Q6HPRN, Starting on 12/03/21 at 1705, Until 12/04/21 at 2055, Routine, Pain (scale 4-6) [facility] acetaminoph en (TYLENOL) tablet 650 mg 12-03 22:05: 04 Yes 650mg 650 mg, Oral, Q6HPRN, Starting on 12/03/21 at 1705, Until Discontinu ed, Routine, Pain (scale 1-3) [facility] methylpredn isolone sod succ (SOLU-MEDRO L) injection 125 mg 12-03 21:00: 00 12-03 22:03 :00 No 125mg 125 mg, Slow IV Push, ONCE NOW, 1 dose, On 12/03/21 at 1600, SE [facility] albuterol (PROVENTIL) 2.5 mg /3 mL (0.083 %) nebulizer solution 2.5 mg 12-03 21:00: 00 12-03 22:06 :33 No 2.5mg 2.5 mg, Inhalation , QID, First dose on 12/03/21 at 1600, Until Discontinu ed, Routine [facility] ipratropium (ATROVENT) 0.02 % nebulizer solution 0.5 mg 12-03 21:00: 00 12-03 22:06 :24 No .5mg 0.5 mg, Inhalation , QID, First dose on 12/03/21 at 1600, Until Discontinu ed, Routine [facility] predniSONE (DELTASONE) tablet 30 mg 12 15:00: 00 Yes 30mg 30 mg, Oral, DAILY, First dose (after last modificati on) on 11/12/21 at 0900, Until Discontinu ed, Routine [facility] piperacilli n-tazobacta m (ZOSYN) 3.375 g in NaCl 0.9% (NS) 50 mL MINI-BAG 11-11 23:30: 00 Yes 3.375g 3.375 g, IV Piggyback, Q8H ABX, First dose on Sun11/11/21 at 1730, Until Discontinu ed, Administer over 4 Hours, 50 mL
Reas on for Anti-Infec tive: Empiric Therapy for Suspected Infection< br>Empi leandro Therapy Site: Respirator y
Durat ion of therapy: 72 hours [facility] lurasidone HCl (LATUDA ORAL) 11-11 17:32: 07 Yes Take by mouth. [facility] KCL (KLOR-CON M20) tablet 20 mEq 11-11 02:00: 00 11-11 02:20 :00 No 20meq 20 mEq, Oral, ONCE, 1 dose, On [place] 11/10/21 at 2000, Routine [facility] predniSONE 20 mg tablet 11-11 00:00: 00 12-05 00:00 :00 No [id number] 20mg Take 1 tablet by mouth daily. [facility] piperacilli n-tazobacta m (ZOSYN) 3.375 g [...] y
Durat ion of therapy: 72 hours [facility] enoxaparin (LOVENOX) injection 40 mg 11-10 15:00: 00 Yes 40mg 40 mg, Subcutaneo us, DAILY, First dose on Sun11/10/21 at 0900, Until Discontinu ed, Routine [facility] hydroCHLORO thiazide (ESIDRIX) capsule 12.5 mg 11-10 15:00: 00 Yes 12.5mg 12.5 mg, Oral, DAILY, First dose on Sun11/10/21 at 0900, Until Discontinu ed, Routine [facility] amLODIPine (NORVASC) tablet 10 mg 11-10 15:00: 00 Yes 10mg 10 mg, Oral, DAILY, First dose on Sun11/10/21 at 0900, Until Discontinu ed, Routine [facility] predniSONE (DELTASONE) tablet 40 mg 11-10 15:00: 00 11-11 17:05 :49 No 40mg 40 mg, Oral, DAILY, First dose on Sun11/10/21 at 0900, Until Discontinu ed, Routine [facility] docusate (COLACE) capsule 100 mg 11-10 14:00: 00 Yes 100mg 100 mg, Oral, BID, First dose on Sun11/10/21 at 0800, Until Discontinu ed, Routine [facility] busPIRone (BUSPAR) tablet 5 mg 11-10 14:00: 00 Yes 5mg 5 mg, Oral, BID, First dose on Sun11/10/21 at 0800, Until Discontinu ed, Routine [facility] lurasidone (LATUDA) tablet 20 mg 11-10 13:30: 00 Yes 20mg 20 mg, Oral, QAM-0730, First dose on Sun11/10/21 at 0730, Until Discontinu ed [facility] morpHINE injection 2 mg 11-10 07:05: 58 Yes 2mg 2 mg, Slow IV Push, Q4HPRN, Starting on Sun11/10/21 at 0105, Until Discontinu ed, Routine, Pain (scale 7-10) [facility] ondansetron (ZOFRAN (PF)) injection 4 mg 11-10 05:19: 35 Yes 4mg 4 mg, Slow IV Push, Q6HPRN, Starting on Sun11/09/21 at 2319, Until Discontinu ed, Routine, Nausea and Vomiting (N/V) [facility] HYDROcodone -acetaminop hen (NORCO 5) 5-325 mg tablet 1 tablet 11-10 05:19: 30 11-12 05:18 :30 No 1{tbl} 1 tablet, Oral, Q6HPRN, Starting on Sun11/09/21 at 2319, Until Sun11/11/21 at 2318, Routine, Pain (scale 4-6) [facility] acetaminoph en (TYLENOL) tablet 650 mg 11-10 05:19: 28 Yes 650mg 650 mg, Oral, Q6HPRN, Starting on Sun11/09/21 at 2319, Until Discontinu ed, Routine, Pain (scale 1-3) [facility] albuterol (VENTOLIN) inhaler 2 Puff 11-10 05:17: 52 Yes 2{puff} 2 Puff, Inhalation , Q6HPRN, Starting on Sun11/09/21 at 2317, Until Discontinu ed, Routine, Wheezing, Shortness of Breath [facility] iopamidol (ISOVUE 370-500 mL) injection 100 mL 11-10 04:43: 00 11-10 04:44 :00 No [id number] 100mL 100 mL, Intravenou s, ONCE, 1 dose, On Sun11/09/21 at 2300, Routine [facility] morpHINE injection 4 mg 11-10 03:45: 00 11-10 02:57 :00 No 4mg 4 mg, Slow IV Push, ONCE, 1 dose, On Sun11/09/21 at 2145, SE [facility] piperacilli n-tazobacta m (ZOSYN) 3.375 g in NaCl 0.9% (NS) 50 mL MINI-BAG 11-10 03:45: 00 11-10 05:33 :00 No 3.375g 3.375 g, IV Piggyback, ONCE, 1 dose, On Sun11/09/21 at 2145, Administer over 30 Minutes, 50 mL
Reas on for Anti-Infec tive: Documented Infection< br>Documen britney Infection Site: HEENT
D uration of Therapy: Other (see Comments) [facility] NaCl 0.9% (NS) bolus infusion 1,000 mL 11-10 03:45: 00 11-10 05:33 :00 No 1000mL at 999 mL/hr, 1,000 mL, IV Infusion, ONCE, 1 dose, On Sun11/09/21 at 2145, [facility] ondansetron (ZOFRAN (PF)) injection 4 mg 11-10 03:00: 00 11-10 01:59 :00 No 4mg 4 mg, Slow IV Push, ONCE, 1 dose, On Sun11/09/21 at 2100, [facility] morpHINE injection 4 mg 11-10 03:00: 00 11-10 01:58 :00 No 4mg 4 mg, Slow IV Push, ONCE, 1 dose, On Sun11/09/21 at 2100, STAT [facility] albuterol (PROVENTIL) 2.5 mg /3 mL (0.083 %) nebulizer solution 2.5 mg 11-10 02:00: 00 Yes 2.5mg 2.5 mg, Inhalation , QID, First dose on Sun11/09/21 at 2000, Until Discontinu ed, Routine [facility] ipratropium (ATROVENT) 0.02 % nebulizer solution 0.5 mg 11-10 02:00: 00 Yes .5mg 0.5 mg, Inhalation , QID, First dose on Sun11/09/21 at 2000, Until Discontinu ed, Routine [facility] hydroCHLORO thiazide 12.5 mg capsule 10-25 00:00: 00 12-05 00:00 :00 No [id number] 12.5mg Take 1 capsule by mouth daily. [facility] lurasidone HCl (LATUDA ORAL) 10-24 17:53: 11 Yes Take by mouth. [facility] lurasidone HCl (LATUDA ORAL) 10-24 10:59: 57 Yes Take by mouth. [facility] zolpidem (AMBIEN) tablet 5 mg 10-24 04:00: 00 10-24 03:07 :00 No 5mg 5 mg, Oral, ONCE, 1 dose, On 10/23/21 at 2200, Routine [facility] docusate 100 mg capsule 10-24 00:00: 00 12-05 00:00 :00 No [id number] 100mg Take 1 capsule by mouth 2 (two) times daily. [facility] busPIRone 5 mg tablet 10-24 00:00: 00 12-05 00:00 :00 No [id number] 5mg Take 1 tablet by mouth 2 (two) times daily. [facility] chlorhexidi ne 0.12 % mouthwash 10-24 00:00: 00 12-05 00:00 :00 No [id number] 15mL Swish and spit out 15 mL 2 (two) times daily. [facility] albuterol 90 mcg/actuati on inhaler 10-24 00:00: 00 12-05 00:00 :00 No [id number] 2{puff} Inhale 2 Puffs every 6 (six) hours as needed for Wheezing or Shortness of Breath. [facility] predniSONE 20 mg tablet 10-24 00:00: 00 11-11 00:00 :00 No [id number] 40mg Take 2 tablets by mouth daily. [facility] acetaminoph en-codeine 300-30 mg tablet 10-24 00:00: 00 10-30 05:59 :00 No [id number] 1{tbl} Take 1 tablet by mouth every 4 (four) hours as needed for Pain (scale 4-6) for up to 5 days. Indication s: acute pain [facility] phenoL (SORE THROAT (PHENOL)) 1.4 % spray bottle 1 [place] 10-23 19:03: 59 Yes 1{spray } 1 [place], Oral, PRN, Starting on 10/23/21 at 1303, Until Discontinu ed, Routine, Sore throat [facility] zolpidem (AMBIEN) tablet 5 mg 10-23 04:00: 00 10-23 03:54 :00 No 5mg 5 mg, Oral, ONCE, 1 dose, On 10/22/21 at 2200, Routine [facility] methylpredn isolone sod succ (SOLU-MEDRO L) injection 125 mg 10-22 20:00: 00 Yes 125mg 125 mg, Intravenou s, Q8H, First dose (after last modificati on) on 10/22/21 at 1400, Until Discontinu ed, Routine [facility] hydroCHLORO thiazide (ESIDRIX) capsule 12.5 mg 10-22 15:30: 00 Yes 12.5mg 12.5 mg, Oral, DAILY, First dose on 10/22/21 at 0930, Until Discontinu ed, Routine [facility] amLODIPine (NORVASC) tablet 10 mg 10-22 15:30: 00 Yes 10mg 10 mg, Oral, DAILY, First dose on 10/22/21 at 0930, Until Discontinu ed, Routine [facility] acetaminoph en (TYLENOL) tablet 650 mg 10-22 09:54: 49 Yes 650mg 650 mg, Oral, Q6HPRN, Starting on 10/22/21 at 0354, Until Discontinu ed, Routine, Pain (scale 1-3) [facility] chlorhexidi ne (PERIDEX) 0.12 % mouthwash 15 mL 10-22 02:00: 00 Yes 15mL 15 mL, Oral (Swish And Spit Out), BID, First dose on Sun10/21/21 at 2000, Until Discontinu ed, Routine [facility] dexMEDEtomi dine 200 mcg in 0.9 [...] at maximum allowed dose, contact prescriber .
[facility] propofoL IV infusion 10-21 20:41: 59 [...] vials should be discarded after 12 hours.
[facility] fentaNYL PF (SUBLIMAZE) STD 2,500 mcg [...] at maximum allowed dose, contact prescriber .
[facility] lidocaine 4% (XYLOCAINE) 4 % (40 mg/mL) topical solution 10-21 19:00: 00 Yes PRN, Starting on Sun10/21/21 at 1300, Until Discontinu ed, Routine, Intra-op [facility] methylpredn isolone sod succ (SOLU-MEDRO L) injection 125 mg 10-21 19:00: 00 10-22 15:22 :22 No 125mg 125 mg, Intravenou s, Q6H, First dose (after last modificati on) on Sun10/21/21 at 1300, Until Discontinu ed, [facility] metoprolol (LOPRESSOR) injection 5 mg 10-21 19:00: 00 10-21 19:00 :00 No 5mg 5 mg, Slow IV Push, ONCE, 1 dose, On Sun10/21/21 at 1300, Routine [facility] EPINEPHrine 1:1,000 (1 mg/mL) (ADRENALIN) injection 10-21 18:01: 00 Yes PRN, Starting on Sun10/21/21 at 1201, Until Discontinu ed, Routine, Intra-op [facility] ondansetron (ZOFRAN (PF)) injection 4 mg 10-21 17:19: 50 Yes 4mg 4 mg, Slow IV Push, PRN, 1 dose, Starting on Sun10/21/21 at 1119, Until Discontinu ed, Routine, Nausea and Vomiting (N/V), PACU [facility] NaCl 0.9% (NS) injection 10-21 17:01: 00 Yes PRN, Starting on Sun10/21/21 at 1101, Until Discontinu ed, Routine, Intra-op [facility] morpHINE injection 4 mg 10-20 23:22: 52 Yes 4mg 4 mg, Slow IV Push, Q4HPRN, Starting on Sun10/20/21 at 1722, Until Discontinu ed, Routine, Pain (scale 7-10) [facility] methylpredn isolone sod succ (SOLU-MEDRO L) injection 125 mg 10-20 20:00: 00 10-21 17:53 :24 No 125mg 125 mg, Intravenou s, Q8H, First dose (after last modificati on) on Sun10/20/21 at 1400, Until Discontinu ed, Routine [facility] furosemide (LASIX) injection 40 mg 10-20 18:00: 00 10-20 18:19 :00 No 40mg 40 mg, Slow IV Push, ONCE, 1 dose, On Sun10/20/21 at 1200, [facility] pantoprazol e (PROTONIX) EC tablet 40 mg 10-20 16:45: 00 Yes 40mg 40 mg, Oral, DAILY, First dose on Sun10/20/21 at 1045, Until Discontinu ed, Routine [facility] alum-mag hydroxide-s imeth (MAALOX PLUS / MAG-AL PLUS) 200-200-20 mg/5 mL suspension 30 mL 10-20 16:37: 49 Yes 30mL 30 mL, Oral, Q6HPRN, Starting on Sun10/20/21 at 1037, Until Discontinu ed, Routine, Indigestio n [facility] acetaminoph en (TYLENOL) tablet 650 mg 10-20 16:16: 26 10-21 17:01 :51 No 650mg 650 mg, Oral, Q6HPRN, Starting on Sun10/20/21 at 1016, Until Sun10/21/21 at 1101, Routine, Pain (scale 1-3) [facility] polyethylen e glycol 3350 powder 17 g 10-20 15:00: 00 Yes 17g 17 g, Oral, DAILY, First dose on Sun10/20/21 at 0900, Until Discontinu ed, [facility]ine [facility] docusate (COLACE) capsule 100 mg 10-20 02:00: 00 Yes 100mg 100 mg, Oral, BID, First dose on Sun10/19/21 at 2000, Until Discontinu ed, Routine [facility] hydralAZINE (APRESOLINE ) injection 10 mg 10-19 11:35: 36 Yes 10mg 10 mg, Slow IV Push, Q4HPRN, Starting on Sun10/19/21 at 0535, Until Discontinu ed, Routine, systolic BP >180
In dication: Hypertensi ve Emergency [facility] haloperidol lactate (HALDOL) injection 5 mg 10-19 08:42: 00 10-19 08:44 :00 No 5mg 5 mg, Slow IV Push, ONCE, 1 dose, On Sun10/19/21 at 0245, Routine [facility] pantoprazol e (PROTONIX) injection 40 mg 10-18 01:45: 00 10-20 16:42 :17 No 40mg 40 mg, Slow IV Push, Q24H, First dose on Sun10/17/21 at 1945, Until Discontinu ed [facility] methylpredn isolone sod succ (SOLU-MEDRO L) injection 125 mg 10-17 18:30: 00 10-20 18:10 :46 No 125mg 125 mg, Intravenou s, Q6H, First dose on Sun10/17/21 at 1230, Until Discontinu ed, Routine [facility] ziprasidone (GEODON) injection 10 mg 10-17 18:30: 00 10-17 17:35 :00 No 10mg 10 mg, Intramuscu lar, ONCE, 1 dose, On Sun10/17/21 at 1230, Routine [facility] methylPREDN ISolone sodium succinate (SOLU-MEDRO L) injection 125 mg 10-17 18:00: 00 10-17 18:28 :52 No 125mg 125 mg, Slow IV Push, Q6H, First dose on Sun10/17/21 at 1200, Until Discontinu ed, Routine [facility] thiamine (VITAMIN B1) 100 mg in NaCl 0.9% (NS) piggyback 10-17 17:45: 00 10-19 14:08 :00 No 100mg IV Piggyback, DAILY, 3 doses, First dose on Sun10/17/21 at 1145, Last dose on Sun10/19/21 at 0900, 50 mL [facility] LORazepam (ATIVAN) injection 1 mg 10-17 17:00: 00 10-19 17:33 :38 No 1mg 1 mg, Slow IV Push, Q4HPRN, Starting on Sun10/17/21 at 1100, Until Sun10/19/21 at 1133, Routine, Anxiety, Agitation [facility] ipratropium -albuteroL (DUONEB) 0.5 mg-3 mg(2.5 mg base)/3 mL nebulizer solution 3 mL 10-17 14:00: 00 Yes 3mL 3 mL, Inhalation , Q4H, First dose on Sun10/17/21 at 0800, Until Discontinu ed, [facility] lid[facility] 1% (PF) (XYLOCAINE) injection 5 mL 10-17 13:45: 00 10-17 13:45 :00 No 5mL 5 mL, Subcutaneo us, ONCE, 1 dose, On Sun10/17/21 at 0745, Routine [facility] NaCl 0.9% (NS) injection 10 mL 10-17 13:27: 33 Yes 10mL 10 mL, Slow IV Push, PRN, Starting on Sun10/17/21 at 0727, Until Discontinu ed, Routine, line maintenanc e [facility] haloperidol lactate (HALDOL) injection 5 mg 10-17 04:00: 00 10-17 03:03 :00 No 5mg 5 mg, Slow IV Push, ONCE, 1 dose, On Sun10/16/21 at 2200, Routine [facility] busPIRone (BUSPAR) tablet 5 mg 10-17 02:00: 00 Yes 5mg 5 mg, Oral, BID, First dose on Sun10/16/21 at 2000, Until Discontinu ed, Routine [facility] methylpredn isolone sod succ (SOLU-MEDRO L) injection 60 mg 10-16 23:00: 00 10-17 17:25 :30 No 60mg 60 mg, Slow IV Push, Q8H, First dose on Sun10/16/21 at 1700, Until Discontinu ed, Routine [facility] HYDROcodone -acetaminop hen (NORCO 5) 5-325 mg tablet 1 tablet 10-16 19:49: 46 10-21 17:01 :51 No 1{tbl} 1 tablet, Oral, Q6HPRN, Starting on Sun10/16/21 at 1349, Until Sun10/21/21 at 1101, Routine, Pain (scale 4-6) [facility] cefTRIAXone (ROCEPHIN) 1,000 mg in NaCl [...]
Durat ion of Therapy: Other (see Comments) [facility] azithromyci n (ZITHROMAX) 500 mg in [...]
Durat ion of Therapy: Other (see Comments) [facility] dexMEDEtomi dine 400 mcg in 0.9 [...] at maximum allowed dose, contact prescriber .
[facility] LORazepam (ATIVAN) injection 0.5 mg 10-15 21:43: 49 10-17 16:47 :31 No .5mg 0.5 mg, Slow IV Push, [id number], Starting on 10/15/21 at 1543, Until 10/17/21 at 1047, Routine, Anxiety [facility] iopamidol (ISOVUE 370-500 mL) injection 100 mL 10-15 20:30: 00 10-15 19:21 :00 No [id number] 100mL 100 mL, Intravenou s, ONCE, 1 dose, On 10/15/21 at 1430, Routine [facility] enoxaparin (LOVENOX) injection 40 mg 10-15 17:15: 00 10-20 16:42 :18 No 40mg 40 mg, Subcutaneo us, Q24H, First dose on 10/15/21 at 1115, Until Discontinu ed, Routine [facility] levoFLOXaci n in D5W (LEVAQUIN) 750 mg/150 [...] ion of therapy: 72 hours [facility] furosemide (LASIX) injection 20 mg 10-15 14:30: 00 10-15 13:38 :00 No 20mg 20 mg, IV Push, ONCE, 1 dose, On 10/15/21 at 0830, [facility] calcium gluconate 1 g in NaCl 50 mL (ISO-OSM) RTU IV infusion 1 g 10-15 14:15: 00 10-15 13:37 :00 No 1g 1 g, IV Infusion, ONCE, 1 dose, On 10/15/21 at 0815, Routine [facility] insulin regular human (HUMULIN R) injection 10 Units 10-15 14:15: 00 10-15 13:37 :00 No 10U 10 Units, IV Push, ONCE, 1 dose, On 10/15/21 at 0815, Routine [facility] dextrose 50 % in water (D50W) injection 50 mL 10-15 14:15: 00 10-15 13:37 :00 No 50mL 50 mL, Slow IV Push, ONCE, 1 dose, On 10/15/21 at 0815, Routine [facility] heparin (porcine) injection 5,000 Units 10-15 12:00: 00 10-15 16:12 :17 No 5000U 5,000 Units, Subcutaneo us, Q8H, First dose on 10/15/21 at 0600, Until Discontinu ed, Routine [facility] vancomycin 1500 mg in NS 500 mL IV Piggyback RTU 1,500 mg 10-15 10:00: 00 10-15 16:12 :17 No 15mg/kg 1,500 mg (15 mg/kg ?100 kg), IV Piggyback, Q12H ABX, First dose on 10/15/21 at 0400, Until Discontinu ed, Administer over 90 Minutes
Reason for Anti-Infec tive: Documented Infection< br>Docu mented Infection Site: Blood
D uration of Therapy: 7 days [facility] ceFEPIme (MAXIPIME) 1,000 mg in NaCl 0.9% (NS) 50 mL MINI-BAG 10-15 09:15: 00 10-15 16:12 :17 No 1000mg 1,000 mg, IV Piggyback, Q12H ABX, First dose on 10/15/21 at 0315, Until Discontinu ed, Administer over 30 Minutes, 50 mL
Reas on for Anti-Infec tive: Documented Infection< br>Documen britney Infection Site: Blood
D uration of Therapy: 7 days [facility] ipratropium -albuteroL (DUONEB) 0.5 mg-3 mg(2.5 mg base)/3 mL nebulizer solution 3 mL 10-15 08:07: 12 Yes 3mL 3 mL, Inhalation , QIDPRN, Starting on 10/15/21 at 0207, Until Discontinu ed, Routine, Wheezing, Shortness of Breath, Bronchospa sm [facility] morpHINE injection 4 mg 10-15 08:04: 38 10-19 17:33 :44 No 4mg 4 mg, Slow IV Push, Q4HPRN, Starting on 10/15/21 at 0204, Until 10/19/21 at 1133, Routine, Pain (scale 7-10) [facility] methylPREDN ISolone 4 mg tablets 10-06 00:00: 00 Yes Follow schedule on package instructio ns [facility] methocarbam oL 500 mg tablet - 00:00: 00 Yes 500mg Take 1 tablet by mouth. [facility] zolpidem 10 mg tablet - 00:00: 00 Yes 10mg Take 1 tablet by mouth. [facility] ALPRAZolam 1 mg tablet - 00:00: 00 Yes 1mg Take 1 tablet by mouth. [facility] FLUoxetine 40 mg capsule 2021-1 2-15 00:00: 00 Yes Take by mouth. [facility] amLODIPine 10 mg tablet 2020-09 1-27 00:00: 00 Yes 10mg Take 1 tablet by mouth. [facility] lurasidone HCl (LATUDA ORAL) 7-17 10:16: 57 Yes Take by mouth. [facility] betamethaso ne valerate 0.1 % ointment 01-24 00:00: 00 12-05 00:00 :00 No SMILEY EXT AA BID [facility] triamterene -hydrochlor othiazide 37.5-25 mg per capsule 01-24 00:00: 00 12-05 00:00 :00 No TK 1 C PO QAM [facility] DEXILANT 60 mg capsule 9- 00:00: 00 12-05 00:00 :00 No TK 1 C PO QD [facility] proMETHazin e 25 mg tablet 11-29 00:00: 00 12-05 00:00 :00 No TK 1 T PO Q 12 H PRN FOR 30 DAYS [facility] amLODIPine 5 mg tablet 11-21 00:00: 00 12-05 00:00 :00 No TK 1 T PO Q NIGHTLY [facility] HYDROcodone -acetaminop hen 10-325 mg tablet 2-08 00:00: 00 10-24 00:00 :00 No 1{tbl} Take 1 tablet by mouth. [facility] betamethaso ne dipropionat e (DIPROLENE) 0.05 % cream 2-13 00:00: 00 12-05 00:00 :00 No [id number] Apply to area(s) two (2) times daily. [facility] Immunizations Ordered Immunization Name Filled Immunization Name Date Status Comments Source SARS-COV-2 COVID-19 MODERNA VACCINE 2021-03-03 00:00:00 Completed [facility] SARS-COV-2 COVID-19 MODERNA VACCINE 2021-03-03 00:00:00 Completed [facility] SARS-COV-2 COVID-19 MODERNA VACCINE 2021-03-03 00:00:00 Completed [facility] SARS-COV-2 COVID-19 MODERNA VACCINE 2021-03-03 00:00:00 Completed [facility] SARS-COV-2 COVID-19 MODERNA VACCINE 2021-03-03 00:00:00 Completed [facility] SARS-COV-2 COVID-19 MODERNA VACCINE 2021-03-03 00:00:00 Completed [facility] SARS-COV-2 COVID-19 MODERNA 12+ YRS VACCINE 2021-03-03 00:00:00 Completed [facility] SARS-COV-2 COVID-19 MODERNA 12+ YRS VACCINE 2021-03-03 00:00:00 Completed [facility] SARS-COV-2 COVID-19 MODERNA 12+ YRS VACCINE 2021-03-03 00:00:00 Completed [facility] SARS-COV-2 COVID-19 MODERNA 12+ YRS VACCINE 2021-03-03 00:00:00 Completed [facility] SARS-COV-2 COVID-19 MODERNA 12+ YRS VACCINE 2021-03-03 00:00:00 Completed [facility] SARS-COV-2 COVID-19 MODERNA 12+ YRS VACCINE 2021-03-03 00:00:00 Completed [facility] SARS-COV-2 COVID-19 MODERNA 12+ YRS VACCINE 2021-03-03 00:00:00 Completed [facility] SARS-COV-2 COVID-19 MODERNA 12+ YRS VACCINE 2021-03-03 00:00:00 Completed [facility] SARS-COV-2 COVID-19 MODERNA VACCINE 2021-03-03 00:00:00 Completed [facility] SARS-COV-2 COVID-19 MODERNA VACCINE 2021-03-03 00:00:00 Completed [facility] SARS-COV-2 COVID-19 MODERNA VACCINE 2021-03-03 00:00:00 Completed [facility] SARS-COV-2 COVID-19 MODERNA VACCINE 2021-03-03 00:00:00 Completed [facility] SARS-COV-2 COVID-19 MODERNA VACCINE 2021-03-03 00:00:00 Completed [facility] SARS-COV-2 COVID-19 MODERNA VACCINE 2021-03-03 00:00:00 Completed [facility] SARS-COV-2 COVID-19 MODERNA VACCINE 2021-03-03 00:00:00 Completed [facility] SARS-COV-2 COVID-19 MODERNA VACCINE 2021-03-03 00:00:00 Completed [facility] SARS-COV-2 COVID-19 MODERNA VACCINE 2021-03-03 00:00:00 Completed [facility] SARS-COV-2 COVID-19 MODERNA VACCINE 2021-03-03 00:00:00 Completed [facility] SARS-COV-2 COVID-19 MODERNA VACCINE 2021-03-03 00:00:00 Completed [facility] SARS-COV-2 COVID-19 MODERNA VACCINE 2021-03-03 00:00:00 Completed [facility] SARS-COV-2 COVID-19 MODERNA VACCINE 2021-02-01 00:00:00 Completed [facility] SARS-COV-2 COVID-19 MODERNA VACCINE 2021-02-01 00:00:00 Completed [facility] SARS-COV-2 COVID-19 MODERNA VACCINE 2021-02-01 00:00:00 Completed [facility] SARS-COV-2 COVID-19 MODERNA VACCINE 2021-02-01 00:00:00 Completed [facility] SARS-COV-2 COVID-19 MODERNA VACCINE 2021-02-01 00:00:00 Completed [facility] SARS-COV-2 COVID-19 MODERNA VACCINE 2021-02-01 00:00:00 Completed [facility] SARS-COV-2 COVID-19 MODERNA 12+ YRS VACCINE 2021-02-01 00:00:00 Completed [facility] SARS-COV-2 COVID-19 MODERNA 12+ YRS VACCINE 2021-02-01 00:00:00 Completed [facility] SARS-COV-2 COVID-19 MODERNA 12+ YRS VACCINE 2021-02-01 00:00:00 Completed [facility] SARS-COV-2 COVID-19 MODERNA 12+ YRS VACCINE 2021-02-01 00:00:00 Completed [facility] SARS-COV-2 COVID-19 MODERNA 12+ YRS VACCINE 2021-02-01 00:00:00 Completed [facility] SARS-COV-2 COVID-19 MODERNA 12+ YRS VACCINE 2021-02-01 00:00:00 Completed [facility] SARS-COV-2 COVID-19 MODERNA 12+ YRS VACCINE 2021-02-01 00:00:00 Completed [facility] SARS-COV-2 COVID-19 MODERNA 12+ YRS VACCINE 2021-02-01 00:00:00 Completed [facility] SARS-COV-2 COVID-19 MODERNA VACCINE 2021-02-01 00:00:00 Completed [facility] SARS-COV-2 COVID-19 MODERNA VACCINE 2021-02-01 00:00:00 Completed [facility] SARS-COV-2 COVID-19 MODERNA VACCINE 2021-02-01 00:00:00 Completed [facility] SARS-COV-2 COVID-19 MODERNA VACCINE 2021-02-01 00:00:00 Completed [facility] SARS-COV-2 COVID-19 MODERNA VACCINE 2021-02-01 00:00:00 Completed [facility] SARS-COV-2 COVID-19 MODERNA VACCINE 2021-02-01 00:00:00 Completed [facility] SARS-COV-2 COVID-19 MODERNA VACCINE 2021-02-01 00:00:00 Completed [facility] SARS-COV-2 COVID-19 MODERNA VACCINE 2021-02-01 00:00:00 Completed [facility] SARS-COV-2 COVID-19 MODERNA VACCINE 2021-02-01 00:00:00 Completed [facility] SARS-COV-2 COVID-19 MODERNA VACCINE 2021-02-01 00:00:00 Completed [facility] SARS-COV-2 COVID-19 MODERNA VACCINE 2021-02-01 00:00:00 Completed [facility] SARS-COV-2 COVID-19 MODERNA VACCINE 2021-02-01 00:00:00 Completed [facility] Influenza Virus Vaccine 2007-07-02 00:00:00 Completed [facility] Influenza Virus Vaccine 2007-07-02 00:00:00 Completed [facility] Influenza Virus Vaccine 2007-07-02 00:00:00 Completed [facility] Influenza Virus Vaccine 2007-07-02 00:00:00 Completed [facility] Influenza Virus Vaccine 2007-07-02 00:00:00 Completed [facility] Influenza Virus Vaccine 2007-07-02 00:00:00 Completed [facility] Influenza Virus Vaccine 2007-07-02 00:00:00 Completed [facility] Influenza Virus Vaccine 2007-07-02 00:00:00 Completed [facility] Influenza Virus Vaccine 2007-07-02 00:00:00 Completed [facility] Influenza Virus Vaccine 2007-07-02 00:00:00 Completed [facility] Influenza Virus Vaccine 2007-07-02 00:00:00 Completed [facility] Influenza Virus Vaccine 2007-07-02 00:00:00 Completed [facility] Influenza Virus Vaccine 2007-07-02 00:00:00 Completed [facility] Influenza Virus Vaccine 2007-07-02 00:00:00 Completed [facility] Influenza Virus Vaccine 2007-07-02 00:00:00 Completed [facility] Influenza Virus Vaccine 2007-07-02 00:00:00 Completed [facility] Influenza Virus Vaccine 2007-07-02 00:00:00 Completed [facility] Influenza Virus Vaccine 2007-07-02 00:00:00 Completed [facility] Influenza Virus Vaccine 2007-07-02 00:00:00 Completed [facility] Influenza Virus Vaccine 2007-07-02 00:00:00 Completed [facility] Influenza Virus Vaccine 2007-07-02 00:00:00 Completed [facility] Influenza Virus Vaccine 2007-07-02 00:00:00 Completed [facility] Influenza Virus Vaccine 2007-07-02 00:00:00 Completed [facility] Influenza Virus Vaccine 2007-07-02 00:00:00 Completed [facility] Influenza Virus Vaccine 2007-07-02 00:00:00 Completed [facility] Influenza Virus Vaccine 2007-07-02 00:00:00 Completed [facility] Influenza Virus Vaccine 2007-07-02 00:00:00 Completed [facility] Influenza Virus Vaccine Unknown Completed [facility] SARS-COV-2 COVID-19 MODERNA 12+ YRS VACCINE Unknown Completed [facility] SARS-COV-2 COVID-19 MODERNA 12+ YRS VACCINE Unknown Completed [facility] Influenza Virus Vaccine Unknown Completed [facility] SARS-COV-2 COVID-19 MODERNA 12+ YRS VACCINE Unknown Completed [facility] SARS-COV-2 COVID-19 MODERNA 12+ YRS VACCINE Unknown Completed [facility] Influenza Virus Vaccine Unknown Completed [facility] SARS-COV-2 COVID-19 MODERNA 12+ YRS VACCINE Unknown Completed [facility] SARS-COV-2 COVID-19 MODERNA 12+ YRS VACCINE Unknown Completed [facility] Vital Signs Vital Name Observation Time Observation Value Comments S ource Systolic blood pressure 2023-10-13 01:23:00 153 mm[Hg] [facility] Diastolic blood pressure 2023-10-13 01:23:00 109 mm[Hg] [facility] Heart rate 2023-10-13 01:21:00 75 /min [facility] Body temperature 2023-10-13 01:21:00 37 Carleen [facility] Respiratory rate 2023-10-13 01:21:00 18 /min [facility] Body height 2023-10-13 01:21:00 160 cm [facility] Body weight 2023-10-13 01:21:00 83.008 kg [facility] BMI 2023-10-13 01:21:00 32.42 kg/m2 [facility] Oxygen saturation in Arterial blood by Pulse oximetry 2023-10-13 01:21:00 100 /min [facility] Weight 2023-06-03 21:47:00 90.1 KG Height 2023-05-04 15:00:00 162.56 CM Weight 2023-05-04 15:00:00 85 KG Height 2023-04-14 22:00:00 160.02 CM Weight 2023-04-14 22:00:00 86.45 KG Height 2023-02-08 07:40:00 160.02 CM Weight 2023-02-08 07:40:00 91.6 KG Height 2022-12-11 20:32:00 13.46 CM Weight 2022-12-11 20:32:00 86.63 KG Systolic blood pressure 2022-12-11 00:01:00 163 mm[Hg] [facility] Diastolic blood pressure 2022-12-11 00:01:00 96 mm[Hg] [facility] Heart rate 2022-12-11 00:01:00 79 /min [facility] Body temperature 2022-12-11 00:01:00 37.22 Carleen [facility] Respiratory rate 2022-12-11 00:01:00 20 /min [facility] Body height 2022-12-11 00:01:00 160 cm [facility] Body weight 2022-12-11 00:01:00 87 kg [facility] BMI 2022-12-11 00:01:00 33.98 kg/m2 [facility] Oxygen saturation in Arterial blood by Pulse oximetry 2022-12-11 00:01:00 99 /min [facility] Systolic blood pressure 2022-11-05 21:43:00 123 mm[Hg] [facility] Diastolic blood pressure 2022-11-05 21:43:00 84 mm[Hg] [facility] Heart rate 2022-11-05 21:43:00 59 /min [facility] Body temperature 2022-11-05 21:43:00 36.44 Carleen [facility] Oxygen saturation in Arterial blood by Pulse oximetry 2022-11-05 21:43:00 97 /min [facility] Respiratory rate 2022-11-05 17:22:00 17 /min [facility] Body height 2022-11-05 03:54:00 160 cm [facility] Body weight 2022-11-05 03:54:00 87.091 kg [facility] BMI 2022-11-05 03:54:00 34.01 kg/m2 [facility] Height 2022-08-17 11:26:00 Weight 2022-08-17 11:26:00 Systolic blood pressure 2022-07-27 13:18:00 146 mm[Hg] [facility] Diastolic blood pressure 2022-07-27 13:18:00 91 mm[Hg] [facility] Heart rate 2022-07-27 13:18:00 78 /min [facility] Body temperature 2022-07-27 13:18:00 36.44 Carleen [facility] Respiratory rate 2022-07-27 13:18:00 18 /min [facility] Oxygen saturation in Arterial blood by Pulse oximetry 2022-07-27 13:18:00 94 /min [facility] Body height 2022-07-26 05:22:00 160 cm [facility] Body weight 2022-07-26 05:22:00 97.977 kg [facility] BMI 2022-07-26 05:22:00 38.26 kg/m2 [facility] Height 2022-07-20 13:40:00 160.02 CM Weight 2022-07-20 13:40:00 89.81 KG Height 2022-07-20 11:04:00 160.02 CM Weight 2022-07-20 11:04:00 81.64 KG Systolic blood pressure 2022-06-26 00:42:00 132 mm[Hg] [facility] Diastolic blood pressure 2022-06-26 00:42:00 81 mm[Hg] [facility] Heart rate 2022-06-26 00:42:00 104 /min [facility] Body temperature 2022-06-26 00:42:00 36.67 Carleen [facility] Respiratory rate 2022-06-26 00:42:00 18 /min [facility] Oxygen saturation in Arterial blood by Pulse oximetry 2022-06-26 00:42:00 96 /min [facility] Body height 2022-06-25 00:54:00 160 cm [facility] Body weight 2022-06-25 00:54:00 98.884 kg [facility] BMI 2022-06-25 00:54:00 38.62 kg/m2 [facility] Height 2022-06-23 19:31:00 160.02 CM Weight 2022-06-23 19:31:00 86.18 KG Weight 2022-06-21 20:00:00 98.88 KG Height 2022-06-12 15:55:00 160.02 CM Weight 2022-06-12 15:55:00 81.64 KG Systolic blood pressure 2022-06-01 03:00:00 167 mm[Hg] [facility] Diastolic blood pressure 2022-06-01 03:00:00 102 mm[Hg] [facility] Heart rate 2022-06-01 03:00:00 94 /min [facility] Respiratory rate 2022-06-01 03:00:00 20 /min [facility] Oxygen saturation in Arterial blood by Pulse oximetry 2022-06-01 03:00:00 98 /min [facility] Body height 2022-06-01 01:17:00 160 cm [facility] Body weight 2022-06-01 01:17:00 89.812 kg [facility] BMI 2022-06-01 01:17:00 35.07 kg/m2 [facility] Height 2022-04-05 15:26:00 160.02 CM Weight 2022-04-05 15:26:00 90.26 KG Systolic blood pressure 2022-02-26 13:59:00 136 mm[Hg] [facility] Diastolic blood pressure 2022-02-26 13:59:00 101 mm[Hg] [facility] Heart rate 2022-02-26 13:59:00 79 /min [facility] Body temperature 2022-02-26 13:59:00 36.78 Carleen [facility] Respiratory rate 2022-02-26 13:59:00 20 /min [facility] Oxygen saturation in Arterial blood by Pulse oximetry 2022-02-26 13:59:00 100 /min [facility] Body height 2022-02-26 04:37:00 160 cm [facility] Body weight 2022-02-26 04:37:00 92.08 kg [facility] BMI 2022-02-26 04:37:00 35.96 kg/m2 [facility] Systolic blood pressure 2022-02-23 06:00:00 115 mm[Hg] [facility] Diastolic blood pressure 2022-02-23 06:00:00 83 mm[Hg] [facility] Heart rate 2022-02-23 06:00:00 62 /min [facility] Respiratory rate 2022-02-23 06:00:00 18 /min [facility] Oxygen saturation in Arterial blood by Pulse oximetry 2022-02-23 06:00:00 97 /min [facility] Body temperature 2022-02-23 02:45:00 37.83 Carleen [facility] Body height 2022-02-23 02:45:00 160 cm [facility] Body weight 2022-02-23 02:45:00 92.08 kg [facility] BMI 2022-02-23 02:45:00 35.96 kg/m2 [facility] Systolic blood pressure 2022-01-29 21:54:12 118 mm[Hg] [facility] Diastolic blood pressure 2022-01-29 21:54:12 74 mm[Hg] [facility] Heart rate 2022-01-29 21:54:12 98 /min [facility] Respiratory rate 2022-01-29 21:54:12 24 /min [facility] Oxygen saturation in Arterial blood by Pulse oximetry 2022-01-29 21:54:12 98 /min [facility] Body temperature 2022-01-29 18:53:00 37 Carleen [facility] Body height 2022-01-29 18:53:00 160 cm [facility] Body weight 2022-01-29 18:53:00 90.719 kg [facility] BMI 2022-01-29 18:53:00 35.43 kg/m2 [facility] Systolic blood pressure 2022-01-29 15:01:00 138 mm[Hg] [facility] Diastolic blood pressure 2022-01-29 15:01:00 82 mm[Hg] [facility] Heart rate 2022-01-29 15:01:00 88 /min [facility] Respiratory rate 2022-01-29 15:01:00 15 /min [facility] Oxygen saturation in Arterial blood by Pulse oximetry 2022-01-29 15:01:00 96 /min [facility] Body temperature 2022-01-29 12:58:00 36.61 Carleen [facility] Body weight 2022-01-29 12:58:00 81.647 kg [facility] BMI 2022-01-29 12:58:00 31.89 kg/m2 [facility] Height 2022-01-05 08:28:00 160.02 CM Weight 2022-01-05 08:28:00 81.64 KG Systolic blood pressure 2022-01-03 04:43:12 152 mm[Hg] [facility] Diastolic blood pressure 2022-01-03 04:43:12 112 mm[Hg] [facility] Body temperature 2022-01-03 04:43:12 37.28 [facility] Respiratory rate 2022-01-03 04:43:12 17 /min [facility] Heart rate 2022-01-03 04:42:33 88 /min [facility] Oxygen saturation in Arterial blood by Pulse oximetry 2022-01-03 04:42:33 97 /min [facility] Body height 2022-01-03 02:36:00 160 cm [facility] Body weight 2022-01-03 02:36:00 81.647 kg [facility] BMI 2022-01-03 02:36:00 31.89 kg/m2 [facility] Body temperature 2021-12-07 13:30:00 37.17 [facility] Respiratory rate 2021-12-07 13:30:00 23 /min [facility] Oxygen saturation in Arterial blood by Pulse oximetry 2021-12-07 13:14:00 97 /min [facility] Systolic blood pressure 2021-12-07 09:00:00 157 mm[Hg] [facility] Diastolic blood pressure 2021-12-07 09:00:00 99 mm[Hg] [facility] Heart rate 2021-12-07 09:00:00 82 /min [facility] Body weight 2021-12-07 08:10:00 95.709 kg [facility] BMI 2021-12-07 08:10:00 37.38 kg/m2 [facility] Body height 2021-12-06 06:30:00 160 cm [facility] Systolic blood pressure 2021-12-05 09:10:00 126 mm[Hg] [facility] Diastolic blood pressure 2021-12-05 09:10:00 71 mm[Hg] [facility] Heart rate 2021-12-05 09:10:00 85 /min [facility] Body temperature 2021-12-05 09:10:00 36.83 Carleen [facility] Respiratory rate 2021-12-05 09:10:00 18 /min [facility] Oxygen saturation in Arterial blood by Pulse oximetry 2021-12-05 09:10:00 96 /min [facility] Body height 2021-12-03 23:16:00 160 cm [facility] Body weight 2021-12-03 23:16:00 81.647 kg [facility] BMI 2021-12-03 23:16:00 31.89 kg/m2 [facility] Systolic blood pressure 2021-11-11 18:12:00 152 mm[Hg] [facility] Diastolic blood pressure 2021-11-11 18:12:00 93 mm[Hg] [facility] Heart rate 2021-11-11 18:12:00 108 /min [facility] Body temperature 2021-11-11 18:12:00 37.06 Carleen [facility] Respiratory rate 2021-11-11 18:12:00 20 /min [facility] Oxygen saturation in Arterial blood by Pulse oximetry 2021-11-11 18:12:00 95 /min [facility] Body height 2021-11-10 17:22:00 160 cm [facility] Body weight 2021-11-10 17:22:00 91 kg [facility] BMI 2021-11-10 17:22:00 35.54 kg/m2 [facility] Systolic blood pressure 2021-10-24 17:05:00 143 mm[Hg] [facility] Diastolic blood pressure 2021-10-24 17:05:00 90 mm[Hg] [facility] Heart rate 2021-10-24 17:05:00 103 /min [facility] Body temperature 2021-10-24 17:05:00 36.22 Carleen [facility] Respiratory rate 2021-10-24 17:05:00 18 /min [facility] Oxygen saturation in Arterial blood by Pulse oximetry 2021-10-24 17:05:00 95 /min [facility] Body weight 2021-10-22 10:08:00 71.215 kg bed scale [facility] BMI 2021-10-22 10:08:00 28.72 kg/m2 [facility] Body height 2021-10-17 14:00:00 157.5 cm [facility] Systolic blood pressure 2021-10-21 15:36:00 129 mm[Hg] [facility] Diastolic blood pressure 2021-10-21 15:36:00 82 mm[Hg] [facility] Heart rate 2021-10-21 15:36:00 100 /min [facility] Respiratory rate 2021-10-21 15:36:00 20 /min [facility] Oxygen saturation in Arterial blood by Pulse oximetry 2021-10-21 15:36:00 100 /min [facility] Body temperature 2021-10-21 13:07:00 36.83 Carleen [facility] Body height 2021-10-17 14:00:00 157.5 cm [facility] Body weight 2021-10-17 14:00:00 99.791 kg [facility] BMI 2021-10-17 14:00:00 28.72 kg/m2 [facility] Procedures Procedure Date / Time Performed Performing Clinician Source XR ANKLE 3+ VW RIGHT 2023-10-13 02:37:00 Eloy Shipley [facility] XR FEMUR 2 VW RIGHT 2023-10-13 02:37:00 María Shipley [facility] XR HIPS 2 VW RIGHT 2023-10-13 02:37:00 Kavitha Shipley [facility] XR KNEE 3 VW RIGHT 2023-10-13 02:37:00 Nelson Hernandez [facility] CONSENT/REFUSAL FOR DIAGNOSIS AND TREATMENT 2023-10-13 00:49:50 Doctor Unassigned, Shafter [facility] REFERRAL- REQUEST/RESPONSE 2023-08-23 06:01:00 Doctor Unassigned, Shafter [facility] DESTRUCT LUMBAR NERVE PERQ APPROACH 2023-02-08 00:00:00 [facility] REFERRAL- REQUEST/RESPONSE 2022-12-25 05:01:00 Doctor Unassigned, Shafter [facility] XR KNEE 3 VW RIGHT 2022-12-11 00:44:07 Oren Tovar [facility] NOTICE OF PRIVACY PRACTICES 2022-12-10 23:48:22 Doctor Unassigned, Shafter [facility] CONSENT/REFUSAL FOR DIAGNOSIS AND TREATMENT 2022-12-10 23:47:38 Doctor Unassigned, Shafter [facility] AUTHORIZATION FOR RELEASE OF PHI 2022-11-22 05:01:00 Doctor Unassigned, Shafter [facility] TROPONIN I 2022-11-05 20:53:00 Zelda Olsen [facility] TROPONIN I 2022-11-05 14:07:00 Zelda Olsen [facility] THYROID STIMULATING HORMONE 2022-11-05 14:07:00 Ct'Nichole Negrete [facility] EKG-12 LEAD 2022-11-05 13:47:04 [facility] CHEST PULMONARY ANGIOGRAM 2022-11-05 09:00:08 Yuniel Mccray [facility] TEST, SERUM 2022-11-05 07:07:00 Tiffani Mccray [facility] TROPONIN I 2022-11-05 07:07:00 [facility] COMP. METABOLIC PANEL ([id number]) 2022-11-05 07:07:00 Yuniel Mccray [facility] CBC WITH DIFF 2022-11-05 07:07:00 Yuniel Mccray [facility] PROTHROMBIN TIME / INR 2022-11-05 07:07:00 Kelvin Mccray [facility] D-DIMER 2022-11-05 07:07:00 [facility] ACTIVATED PARTIAL THRMPLAS ANTONINO 2022-11-05 07:07:00 Yuniel Mccray [facility] N-TERMINAL PRO-BNP 2022-11-05 07:07:00 Yuniel Mccray [facility] XR CHEST 1 VW 2022-11-05 04:39:20 Yuniel Mccray [facility] COVID-19 (ID NOW RAPID TESTING) 2022-11-05 04:33:00 Yuniel Mccray [facility] CONSENT/REFUSAL FOR DIAGNOSIS AND TREATMENT 2022-11-05 03:43:00 Doctor Unassigned, Shafter [facility] INTRO ANES AGT PERIPH NRV\\T\\PLEXI PC 2022-08-17 00:00:00 [facility] INTRO AIF PERIPH NRV PLEXI PERQ 2022-08-17 00:00:00 [facility] TRANSTHORACIC ECHO (TTE) LIMITED 2022-07-26 17:38:46 [facility] 2022-07-26 04:19:27 Umm Manzanares [facility] CT CHEST PULMONARY ANGIOGRAM 2022-07-26 03:22:22 Ced Hernández [facility] XR CHEST 1 VW 2022-07-26 02:35:21 [facility] MAGNESIUM 2022-07-26 02:27:00 [facility] 2022-07-26 02:27:[address] [facility] TROPONIN I 2022-07-26 02:27:00 Glenna [facility] COMP. METABOLIC PANEL ([id number]) 2022-07-26 02:27:[address] [facility] CBC WITH DIFF 2022-07-26 02:27:00 Glenna [facility] D-DIMER 2022-07-26 02:27:00 Glenna [facility] RAPID INFLUENZA A/B 2022-07-26 02:27:00 Glenna [facility] N-TERMINAL PRO-BNP 2022-07-26 02:27:00 Edgar Ced Un [facility] COVID-19 (ID NOW RAPID TESTING) 2022-07-26 02:27:[address] [facility] LAB ONLY COVID INTERPRETATION 2022-07-26 02:27:[address] [facility] POCT TEST 2022-07-26 02:25:00 Glenna [facility] CONSENT/REFUSAL FOR DIAGNOSIS AND TREATMENT 2022-07-26 01:46:49 Doctor Unassigned, Shafter [facility] INTRO DSTRUC AGT CL NRV PLEXI PC 2022-07-20 00:00:00 [facility] TROPONIN I 2022-06-25 13:36:00 [facility] THYRO[facility]IM[facility] HORMONE 2022-06-25 13:36:00 Shakira Lucas [facility] TROPONIN I 2022-06-25 10:40:00 [facility]ST 2022-06-25 08:02:00 Vi Kline [facility] EKG-12 LEAD 2022-06-25 05:02:32 Jaden Siddiqui [facility] URINALYSIS 2022-06-25 03:47:00 Jaden Siddiqui [facility] TROPONIN I 2022-06-25 03:35:00 Jaden Siddiqui [facility] COMP. METABOLIC PANEL ([id number]) 2022-06-25 03:35:00 Jaden Siddiqui [facility] CBC WITH DIFF 2022-06-25 03:35:00 Edgard [facility] PROTHROMBIN TIME / INR 2022-06-25 03:35:00 Kenna Siddiqui [facility] D-DIMER 2022-06-25 03:35:00 Abu Malilewis, [facility]aya [facility] N-TERMINAL PRO-BNP 2022-06-25 03:35:00 Jaedn Siddiqui [facility] CONSENT/REFUSAL FOR DIAGNOSIS AND TREATMENT 2022-06-25 00:16:13 Doctor Unassigned, Shafter [facility] XR CHEST 1 VW 2022-06-24 14:12:00 Jaden Siddiqui [facility] INTRO ANES AGT PERIPH NRV\\T\\PLEXI PC 2022-06-15 00:00:00 [facility] INTRO AIF PERIPH NRV PLEXI PERQ 2022-06-15 00:00:00 [facility] AUTHORIZATION FOR RELEASE OF PHI 2022-06-08 05:01:00 Doctor Unassigned, Shafter [facility] XR CHEST 1 VW 2022-06-01 02:07:14 Gabriel Garcia [facility] XR KNEE <3 VW RIGHT 2022-06-01 02:07:14 Gabriel Garcia [facility] XR SHOULDER 2+ VW RIGHT 2022-06-01 02:07:14 Lela Garcia [facility] CT CERVICAL SPINE WO CONTRAST 2022-06-01 02:05:05 Gabriel Garcia [facility] CT HEAD WO CONTRAST 2022-06-01 02:05:05 Gabriel Garcia [facility] CONSENT/REFUSAL FOR DIAGNOSIS AND TREATMENT 2022-06-01 01:15:31 Doctor Unassigned, Shafter [facility] INTRO ANES AGT PERIPH NRV\\T\\PLEXI PC 2022-05-11 00:00:00 [facility] INTRO AIF PERIPH NRV PLEXI PERQ 2022-05-11 00:00:00 [facility] INTRO ANES AGT PERIPH NRV\\T\\PLEXI PC 2022-04-06 00:00:00 [facility] INTRO AIF PERIPH NRV PLEXI PERQ 2022-04-06 00:00:00 [facility] ASSIGNMENT OF BENEFITS 2022-03-14 20:14:00 Docto r Unassigned, Shafter [facility] CT THORAX WO CONTRAST 2022-02-26 13:20:05 Anaya Kline [facility] BASIC METABOLIC PANEL (NA, K, CL, CO2, GLUCOSE, BUN, CREATININE, CA) 2022-02-26 09:29:00 Anaya Kline [facility] CBC WITH DIFF 2022-02-26 09:29:00 [facility] EKG-12 LEAD 2022-02-26 06:20:06 [facility] LIPASE 2022-02-26 03:28:00 Sobeida Samson [facility] TROPONIN I 2022-02-26 03:28:00 Sobeida Samson [facility] COMP. METABOLIC PANEL ([id number]) 2022-02-26 03:28:00 Sobeida Samson [facility] CBC WITH DIFF 2022-02-26 03:28:00 Sobeida Samson [facility] N-TERMINAL PRO-BNP 2022-02-26 03:28:00 Angelia Samson [facility] XR CHEST 1 VW 2022-02-26 01:52:00 Sobeida Samson [facility] COVID-19 (ID NOW RAPID TESTING) 2022-02-26 01:03:00 Sobeida Samson [facility] CT HEAD WO CONTRAST 2022-02-25 23:59:38 Jose Enrique Samson [facility] CONSENT/REFUSAL FOR DIAGNOSIS AND TREATMENT 2022-02-25 22:55:28 Doctor Unassigned, Shafter [facility] EKG-12 LEAD 2022-02-23 06:15:35 Bro Ann [facility] TROPONIN I 2022-02-23 05:20:00 Bro Ann [facility] XR CHEST 2 VW 2022-02-23 03:47:00 Bro Ann [facility] URINALYSIS 2022-02-23 03:26:00 [facility]-02-23 [facility]:12[facility]. METABOLIC PANEL ([id number]) 2022-02-23 03:12:00 Bro Ann [facility] CBC WITH DIFF 2022-02-23 03:12:00 Bro Ann [facility] RAPID INFLUENZA A/B 2022-02-23 03:12:00 Linda Ann [facility] N-TERMINAL PRO-BNP 2022-02-23 03:12:00 Sue Ann [facility] COVID-19 (ID NOW RAPID TESTING) 2022-02-23 03:12:00 Bro Ann [facility] CONSENT/REFUSAL FOR DIAGNOSIS AND TREATMENT 2022-02-23 02:38:26 Doctor Unassigned, Shafter [facility] XR LUMBAR SPINE 2 VW 2022-01-29 20:25:58 Rudy Siddiqui [facility] CONSENT/REFUSAL FOR DIAGNOSIS AND TREATMENT 2022-01-29 18:42:46 Doctor Unassigned, Shafter [facility] XR CHEST 1 VW 2022-01-29 13:43:00 Mai Del Rosario [facility] TROPONIN I 2022-01-29 13:34:00 [facility] COMP. METABOLIC PANEL ([id number]) 2022-01-29 13:34:00 Mai Del Rosario [facility] CBC WITH DIFF 2022-01-29 13:34:00 Mai Del Rosario [facility] N-TERMINAL PRO-BNP 2022-01-29 13:34:00 Ricky Del Rosario [facility] AC PANEL 21 + LACTIC ACID 2022-01-29 13:34:00 Mai Del Rosario [facility] CONSENT/REFUSAL FOR DIAGNOSIS AND TREATMENT 2022-01-29 12:47:51 Doctor Unassigned, Shafter [facility] INTRO ANES AGT PERIPH NRV\\T\\PLEXI PC 2022-01-05 00:00:00 [facility] INTRO AIF PERIPH NRV PLEXI PERQ 2022-01-05 00:00:00 [facility] XR CHEST 1 VW 2022-01-03 04:29:34 Jacklyn Guillen [facility] CONSENT/REFUSAL FOR DIAGNOSIS AND TREATMENT 2022-01-03 02:30:38 Doctor Unassigned, Shafter [facility] MAGNESIUM 2021-12-07 09:01:00 David Lazo [facility] COMP. METABOLIC PANEL ([id number]) 2021-12-07 09:01:00 Tasha ady [facility] CBC WITH DIFF 2021-12-07 09:01:00 David Lazo [facility] N-TERMINAL PRO-BNP 2021-12-07 09:01:[address] [facility] URINALYSIS 2021-12-06 16:46:00 Tasha [facility] URINE CULTURE 2021-12-06 16:46:00 Gely Hernandez [facility] PHOSPHORUS 2021-12-06 10:11:00 Gely Hernandez [facility] MAGNESIUM 2021-12-06 10:11:00 Tasha [facility] VITAMIN B12, LEVEL 2021-12-06 10:11:[address] [facility] C-REACTIVE PROTEIN 2021-12-06 10:11:[address] [facility] TROPONIN I 2021-12-06 10:11:00 Tasha ady [facility] FREE T4 2021-12-06 10:11:00 Tasha [facility] COMP. METABOLIC PANEL ([id number]) 2021-12-06 10:11:00 Tasha ady [facility] SEDIMENTATION RATE 2021-12-06 10:11:00 Gely Hernandez [facility] CBC WITH DIFF 2021-12-06 10:11:00 Gely Hernandez [facility] N-TERMINAL PRO-BNP 2021-12-06 10:11:00 Gely Hernandez [facility] VITAMIN D, 25-OH 2021-12-06 10:11:00 [facility] T[facility] 2021-12-06 10:11[facility] 2021-12-06 10:11:00 Gely Hernandez [facility] AC VBG + LACTIC ACID 2021-12-06 10:10:00 Hyacinth Hernandez [facility] COVID-19 (ID NOW RAPID TESTING) 2021-12-06 00:09:00 Oren Tovar [facility] LAB ONLY COVID INTERPRETATION 2021-12-06 00:09:00 Oren Tovar [facility] URIC ACID 2021-12-06 00:07:00 Gely Hernandez [facility] FERRITIN SERUM 2021-12-06 00:07:00 Gely Hernandez [facility] TROPONIN I 2021-12-06 00:07:00 [facility] THYROID STIMULATING HORMONE 2021-12-06 00:07:00 Gely Hernandez [facility] COMP. METABOLIC PANEL ([id number]) 2021-12-06 00:07:00 Oren Tovar [facility] LIPID PANEL ([id number])(TOTAL CHOLESTEROL, TRIGLYCERIDES, HDL) 2021-12-06 00:07:00 Gely Hernandez [facility] IRON PANEL 2021-12-06 00:07:00 Gely Hernandez [facility] DIFF CONSULT INTERPRETATION 2021-12-06 00:07:00 Tasha ady [facility] CBC WITH DIFF 2021-12-06 00:07:00 Oren Tovar [facility] GLYCOSYLATED HEMOGLOBIN (A1C) 2021-12-06 00:07:00 Gely Hernandez [facility] PROTHROMBIN TIME / INR 2021-12-06 00:07:00 Sathya Tovar [facility] ACTIVATED PARTIAL THRMPLAS ANTONINO 2021-12-06 00:07:00 Oren Tovar [facility] N-TERMINAL PRO-BNP 2021-12-06 00:07:00 Oren Tovar [facility] HB ECG ROUTINE & RHYTHM STRIP 2021-12-06 00:05:16 Oren Tovar [facility] XR CHEST 1 VW 2021-12-05 23:50:38 Oren Tovar [facility] ASSIGNMENT OF BENEFITS 2021-12-05 23:47:08 Docto r Unassigned, Shafter [facility] NOTICE OF PRIVACY PRACTICES 2021-12-05 22:03:59 Doctor Unassigned, Shafter [facility] CONSENT/REFUSAL FOR DIAGNOSIS AND TREATMENT 2021-12-05 22:03:42 Doctor Unassigned, Shafter [facility] CT ANGIOGRAM CHEST 2021-12-04 20:47:15 Michel [facility] LACTIC ACID WHOLE BLOOD 2021-12-04 15:19:00 Michel [facility] BLOOD CULTURE SCREEN 2021-12-04 10:21:00 Ayesha You [facility] LACTIC ACID WHOLE BLOOD 2021-12-04 09:08:00 Deloris You [facility] BASIC METABOLIC PANEL (NA, K, CL, CO2, GLUCOSE, BUN, CREATININE, CA) 2021-12-04 09:07:00 Michel [facility] CBC WITH DIFF 2021-12-04 09:07:00 Michel [facility] EKG-12 LEAD 2021-12-03 21:29:00 Maury Brush Un [facility] AC ABG + LACTIC ACID 2021-12-03 21:13:00 Lexi Brush [facility] AMYLASE 2021-12-03 21:12:00 [facility] LIPASE 2021-12-03 21:12:00 Maury Brush Un [facility] TROPONIN I 2021-12-03 21:12:00 Maury Brush Un [facility] COMP. METABOLIC PANEL ([id number]) 2021-12-03 21:12:00 Maury Brush [facility] CBC WITH DIFF 2021-12-03 21:12:00 Maury Brush [facility] N-TERMINAL PRO-BNP 2021-12-03 21:12:00 Sonia Brush [facility] PROCALCITONIN 2021-12-03 21:12:00 Abu Anaya Sharma [facility] XR CHEST 1 VW 2021-12-03 20:52:01 Maury Brush [facility] URINALYSIS 2021-12-03 20:34:00 Maury Brush Un [facility] COVID-19 (ID NOW RAPID TESTING) 2021-12-03 20:34:00 Maury Brush [facility] AUTHORIZATION FOR RELEASE OF PHI 2021-11-23 05:01:00 Doctor Unassigned, Shafter [facility] EKG-12 LEAD 2021-11-11 05:25:58 Sobeida Samson [facility] BASIC METABOLIC PANEL (NA, K, CL, CO2, GLUCOSE, BUN, CREATININE, CA) 2021-11-10 09:16:00 Wilfrid Pearson [facility] CBC WITH DIFF 2021-11-10 09:16:00 Wilfrid Pearson [facility] LACTIC ACID WHOLE BLOOD 2021-11-10 09:16:00 Sobeida Samson [facility] CT CHEST PULMONARY ANGIOGRAM 2021-11-10 04:49:21 Sobeida Samson [facility] BLOOD CULTURE SCREEN 2021-11-10 03:58:00 Wesley Samson [facility] BLOOD CULTURE WORKUP 2021-11-10 03:58:00 Wesley Samson [facility] BLOOD CULTURE SCREEN 2021-11-10 02:56:00 Wesley Samson [facility] PROTHROMBIN TIME / INR 2021-11-10 01:47:00 Jonathon Samson [facility] D-DIMER 2021-11-10 01:47:00 Sobeida Samson [facility] ACTIVATED PARTIAL THRMPLAS ANTONINO 2021-11-10 01:47:00 Sobeida Samson [facility] COVID-19 (ID NOW RAPID TESTING) 2021-11-10 01:47:00 Sobeida Samson [facility] LAB ONLY COVID INTERPRETATION 2021-11-10 01:47:00 Sobeida Samson [facility] AC ABG + LACTIC ACID 2021-11-10 01:45:00 Wesley Samson [facility] XR CHEST 1 VW 2021-11-10 01:38:00 Sobeida Samson [facility] COMP. METABOLIC PANEL ([id number]) 2021-11-10 01:32:00 Sobeida Samson [facility] CBC WITH DIFF 2021-11-10 01:32:00 Sobeida Samson [facility] CONSENT/REFUSAL FOR DIAGNOSIS AND TREATMENT 2021-11-10 00:42:41 Doctor Unassigned, Shafter [facility] AUTHORIZATION FOR RELEASE OF PHI 2021-11-07 06:01:00 Doctor Unassigned, Shafter [facility] EXTERNAL PROVIDER - WOMEN'S SERVICES RADIOLOGY 2021-11-03 06:01:00 Doctor Unassigned, Shafter [facility] XR CHEST 1 VW 2021-10-24 18:45:48 Abu Case Sharmaan [facility] XR CHEST 1 VW 2021-10-24 18:45:48 Abu Anaya Sharma [facility] BASIC METABOLIC PANEL (NA, K, CL, CO2, GLUCOSE, BUN, CREATININE, CA) 2021-10-24 12:36:00 Benjamin Gross [facility] CBC WITHOUT DIFF 2021-10-24 12:36:00 Benjamin Gross [facility] BASIC METABOLIC PANEL (NA, K, CL, CO2, GLUCOSE, BUN, CREATININE, CA) 2021-10-24 12:36:00 Benjamin Gross [facility] CBC WITHOUT DIFF 2021-10-24 12:36:00 Benjamin Gross [facility] XR CHEST 1 VW 2021-10-22 15:58:26 Abu Anaya Sharma [facility] XR CHEST 1 VW 2021-10-22 15:58:26 Abu Anaya Sharma [facility] MAGNESIUM 2021-10-22 10:47:00 Zelda Olsen [facility] BASIC METABOLIC PANEL (NA, K, CL, CO2, GLUCOSE, BUN, CREATININE, CA) 2021-10-22 10:47:00 Raúl [facility] CBC WITH DIFF 2021-10-22 10:47:00 Zelda Olsen [facility] MAGNESIUM 2021-10-22 10:47:00 Zelda Olsen [facility] BASIC METABOLIC PANEL (NA, K, CL, CO2, GLUCOSE, BUN, CREATININE, CA) 2021-10-22 10:47:00 Raúl [facility] CBC WITH DIFF 2021-10-22 10:47:00 Zelda Olsen [facility] XR CHEST 1 2021-10-21 22:10:00 Abu Anaya Sharma [facility] XR CHEST 1 2021-10-21 22:10:00 AbAnaya Dover [facility] AC PANEL 20 + LACTIC ACID 2021-10-21 20:28:00 [facility] AC PANEL 20 + LACTIC ACID 2021-10-21 20:28:00 Abu [facility] CYTO BAL 2021-10-21 18:49:00 Abu Anaya Sharma [facility] BODY FLUID DIRECT COUNT 2021-10-21 18:47:00 Abu Anaya Torres [facility] BODY FLUID DIRECT COUNT 2021-10-21 18:47:00 Abu Athera h, [facility] AFB CULTURE 2021-10-21 18:46:00 Abu Anaya Sharma [facility] FUNGUS (ROUTINE) CULTURE 2021-10-21 18:46:00 Abu Ather lewis, [facility] MYCOBACTERIUM TUBERCULOSIS COMPLEX PCR 2021-10-21 18:46:00 Abu Atherlewis, [facility] RESPIRATORY PANEL BY PCR 2021-10-21 18:46:00 Abu Ather ah, [facility] AFB CULTURE 2021-10-21 18:46:00 Abu AtherAnaya saucedo Un [facility] FUNGUS (ROUTINE) CULTURE 2021-10-21 18:46:00 Abu Ather ah, [facility] MYCOBACTERIUM TUBERCULOSIS COMPLEX PCR 2021-10-21 18:46:00 Abu Atherah, [facility] RESPIRATORY PANEL BY PCR 2021-10-21 18:46:00 Abu Ather ah, [facility] BASIC METABOLIC PANEL (NA, K, CL, CO2, GLUCOSE, BUN, CREATININE, CA) 2021-10-21 18:44:00 Abu Atherlewis, [facility] BASIC METABOLIC PANEL (NA, K, CL, CO2, GLUCOSE, BUN, CREATININE, CA) 2021-10-21 18:44:00 Abu Zachary [facility] CBC WITH DIFF 2021-10-21 18:41:00 u MaliAnaya saucedo [facility] PROTHROMBIN TIME / INR 2021-10-21 18:41:00 Abu Ather [facility] FIBRINOGEN 2021-10-21 18:41:00 Abu Anaya Sharma Bang [facility] CBC WITH DIFF 2021-10-21 18:41:00 Abu Zachary Caseamina [facility] PROTHROMBIN TIME / INR 2021-10-21 18:41:00 Abu [facility] , [facility] FIBRINOGEN 2021-10-21 18:41:00 Abu MaliAnaya saucedo [facility] ANTI-NUCLEAR ANTIBODY SCREEN 2021-10-21 18:41:00 Anaya Kline [facility] [place] TIME OR (NON-REPORTABLE) 2021-10-21 18:18:06 Michael Case Sharmaamina [facility] [place] TIME OR (NON-REPORTABLE) 2021-10-21 18:18:06 Anaya Kline [facility] FLEXIBLE BRONCHOSCOPY 2021-10-21 16:21:00 Michael Sharma Caseamina [facility] FLEXIBLE BRONCHOSCOPY 2021-10-21 16:21:00 Anaya Kline [facility] XR CHEST 1 VW 2021-10-20 11:13:00 [facility] 2021-10-20 11:13:00 Anaya Kline [facility] CBC WITH DIFF 2021-10-20 10:30:00 Maggie Morgan [facility] CBC WITH DIFF 2021-10-20 10:30:00 Maggie Morgan [facility] URIC ACID 2021-10-20 10:29:00 Anaya Kline Un [facility] BASIC METABOLIC PANEL (NA, K, CL, CO2, GLUCOSE, BUN, CREATININE, CA) 2021-10-20 10:29:00 Maggie Morgan [facility] URIC ACID 2021-10-20 10:29:00 Anaya Kline Un [facility] BASIC METABOLIC PANEL (NA, K, CL, CO2, GLUCOSE, BUN, CREATININE, CA) 2021-10-20 10:29:00 Maggie Morgan [facility] XR CHEST 1 VW 2021-10-19 18:11:14 Anaya Kline U [facility] XR CHEST 1 VW 2021-10-19 18:11:14 Anaya Kline U [facility] CBC WITH DIFF 2021-10-19 09:05:00 Maggie Morgan [facility] CBC WITH DIFF 2021-10-19 09:05:00 Maggie [facility] MAGNESIUM 2021-10-19 09:04:00 Zelda Olsen [facility] BASIC METABOLIC PANEL (NA, K, CL, CO2, GLUCOSE, BUN, CREATININE, CA) 2021-10-19 09:04:00 Maggie Morgan [facility] MAGNESIUM 2021-10-19 09:04:00 Zelda Olsen [facility] BASIC METABOLIC PANEL (NA, K, CL, CO2, GLUCOSE, BUN, CREATININE, CA) 2021-10-19 09:04:00 Maggie Morgan [facility] POCT GLUCOSE (AUTOMATED) 2021-10-19 02:24:00 Yamini Talavera [facility] POCT GLUCOSE (AUTOMATED) 2021-10-19 02:24:00 Yamini Talavera [facility] COVID-19 (MOLECULAR TESTING NUCLEIC ACID AMPLIFICATION) 2021-10-18 19:48:00 Robert [facility] LAB ONLY COVID INTERPRETATION 2021-10-18 19:48:00 Robert [facility] COVID-19 (MOLECULAR TESTING NUCLEIC ACID AMPLIFICATION) 2021-10-18 19:48:00 Robert [facility] LAB ONLY COVID INTERPRETATION 2021-10-18 19:48:00 Robert [facility] ANGIOTENSIN CONVERTING ENZYME 2021-10-18 19:45:00 Robert [facility] RHEUMATOID FACTOR 2021-10-18 19:45:00 Amadou Putnam [facility] ANCA SCREEN 2021-10-18 19:45:00 Vale Jones [facility] ANGIOTENSIN CONVERTING ENZYME 2021-10-18 19:45:00 Robert [facility] RHEUMATOID FACTOR 2021-10-18 19:45:00 Amadou Putnam [facility] ANCA SCREEN 2021-10-18 19:45:00 Vale Jones [facility] XR CHEST 1 VW 2021-10-18 12:37:00 u Anaya Sharma [facility] XR CHEST 1 VW 2021-10-18 12:37:00 Anaya Kline [facility] PHOSPHORUS 2021-10-18 09:30:00 Raúl [facility] MAGNESIUM 2021-10-18 09:30:00 Ezkevin [facility] BASIC METABOLIC PANEL (NA, K, CL, CO2, GLUCOSE, BUN, CREATININE, CA) 2021-10-18 09:30:00 Raúl [facility] CBC WITH DIFF 2021-10-18 09:30[facility] GLYCOS[facility] HEMOGLOBIN (A1C) 2021-10-18 09:30:00 Maggie Morgan [facility] PHOSPHORUS 2021-10-18 09:30:00 Raúl [facility] MAGNESIUM 2021-10-18 09:30:00 Raúl [facility] BASIC METABOLIC PANEL (NA, K, CL, CO2, GLUCOSE, BUN, CREATININE, CA) 2021-10-18 09:30:00 Raúl [facility] CBC WITH DIFF 2021-10-18 09:30:00 Raúl [facility] GLYCOSYLATED HEMOGLOBIN (A1C) 2021-10-18 09:30:00 Maggie Morgan [facility] BASIC METABOLIC PANEL (NA, K, CL, CO2, GLUCOSE, BUN, CREATININE, CA) 2021-10-18 00:43:00 Anaya Kline [facility] BASIC METABOLIC PANEL (NA, K, CL, CO2, GLUCOSE, BUN, CREATININE, CA) 2021-10-18 00:43:00 Anaya Kline [facility] N-TERMINAL PRO-BNP 2021-10-17 21:27:00 Samir Galindo [facility] N-TERMINAL PRO-BNP 2021-10-17 21:27:00 Samir Galindo U [facility] TRANSTHORACIC ECHO (TTE) COMPLETE 2021-10-17 17:05:00 Nicol Bourgeois [facility] TRANSTHORACIC ECHO (TTE) COMPLETE 2021-10-17 17:05:00 Nicol Bourgeois [facility] XR CHEST 1 2021-10-17 17:00:50 Josie [facility] XR CHEST 1 2021-10-17 17:00:50 Josie [facility] XR CHEST 1 2021-10-17 14:17:12 Josie [facility] XR CHEST 1 2021-10-17 14:17:12 Josie [facility] ABG+COOX+NA+K+GLU+CA2+ 2021-10-17 13:25:00 Rey Parada [facility] ABG+COOX+NA+K+GLU+CA2+ 2021-10-17 13:25:00 Rey Parada [facility] PHOSPHORUS 2021-10-17 10:28:00 Josie [facility] MAGNESIUM 2021-10-17 10:28:00 Josie [facility] BASIC METABOLIC PANEL (NA, K, CL, CO2, GLUCOSE, BUN, CREATININE, CA) 2021-10-17 10:28:00 Josie [facility] SEDIMENTATION RATE 2021-10-17 10:28:00 [facility] 2021-10-17 10:28:00 Josie [facility] ANTI-NUCLEAR ANTIBODY SCREEN 2021-10-17 10:28:00 Faraz Parada [facility] ANTI-NUCLEAR ANTIBODY TITER 2021-10-17 10:28:00 Faraz Parada [facility] ANTI-DOUBLE STRANDED DNA 2021-10-17 10:28:00 Amadou Putnam [facility] HIV 1/2 AG-AB WITH REFLEX 2021-10-17 10:28:00 Anaya Connors [facility] ANTI-NUCLEAR ANTIBODY-PATHOLOGIST INTERPRETATION 2021-10-17 10:28:00 Faraz Parada [facility] PHOSPHORUS 2021-10-17 10:28:00 Ahmed, Samir [facility] MAGNESIUM 2021-10-17 10:28:00 [facility] BASIC MET[facility]OLIC PANEL (NA, K, CL, CO2, GLUCOSE, BUN, CREATININE, CA) 2021-10-17 10:28:00 Josie [facility] SEDIMENTATION RATE 2021-10-17 10:28:00 Faraz Parada [facility] CBC WITH DIFF 2021-10-17 10:28:00 Samir Galindo [facility] ANTI-NUCLEAR ANTIBODY SCREEN 2021-10-17 10:28:00 Faraz Parada [facility] ANTI-NUCLEAR ANTIBODY TITER 2021-10-17 10:28:00 Faraz Parada [facility] ANTI-DOUBLE STRANDED DNA 2021-10-17 10:28:00 Amadou Putnam [facility] HIV 1/2 AG-AB WITH REFLEX 2021-10-17 10:28:00 Anaya Connors [facility] ANTI-NUCLEAR ANTIBODY-PATHOLOGIST INTERPRETATION 2021-10-17 10:28:00 Faraz Parada [facility] BLOOD CULTURE SCREEN 2021-10-16 17:40:00 Yojana Putnam si [facility] BLOOD CULTURE SCREEN 2021-10-16 17:40:00 Yojana Putnam si Lorri [facility] XR CHEST 1 VW 2021-10-16 16:56:36 Nicol Bourgeois U [facility] XR CHEST 1 VW 2021-10-16 16:56:36 Nicol Bourgeois U [facility] RESPIRATORY PANEL BY PCR 2021-10-16 14:46:00 Amadou Putnam [facility] RESPIRATORY PANEL BY PCR 2021-10-16 14:46:00 Amadou Putnam [facility] PHOSPHORUS 2021-10-16 10:47:00 Samir Galindo [facility] MAGNESIUM 2021-10-16 10:47:00 Samir Galindo [facility] BASIC METABOLIC PANEL (NA, K, CL, CO2, GLUCOSE, BUN, CREATININE, CA) 2021-10-16 10:47:00 [facility]FF 2021-10-16 10:47:00 Josie [facility] AC PANEL 20 + LACTIC ACID 2021-10-16 10:47:00 [facility] 2021-10-16 10:47:00 Samir Galindo [facility] MAGNESIUM 2021-10-16 10:47:00 [facility] BASIC METABOLIC PANEL (NA, K, CL, CO2, GLUCOSE, BUN, CREATININE, CA) 2021-10-16 10:47:00 Josie [facility] CBC WITH DIFF 2021-10-16 10:47:00 [facility] AC PANEL 20 + LACTIC ACID 2021-10-16 10:47:00 Maryan Galindo [facility] C-REACTIVE PROTEIN 2021-10-15 22:38:00 Faraz Parada Un [facility] TROPONIN I 2021-10-15 22:38:00 Blanca Talavera [facility] BASIC METABOLIC PANEL (NA, K, CL, CO2, GLUCOSE, BUN, CREATININE, CA) 2021-10-15 22:38:00 Josie [facility] C-REACTIVE PROTEIN 2021-10-15 22:38:00 Faraz Parada [facility] TROPONIN I 2021-10-15 22:38:00 Blanca Talavera [facility] BASIC METABOLIC PANEL (NA, K, CL, CO2, GLUCOSE, BUN, CREATININE, CA) 2021-10-15 22:38:00 Josie [facility] PNEUMOCOCCAL ANTIGEN 2021-10-15 21:49:00 Josie, [facility] PNEUMOCOCCAL ANTIGEN 2021-10-15 21:49:00 Josie, [facility] LEGIONELLA URINARY ANTIGEN TST 2021-10-15 21:48:00 Ahleighann, [facility] LEGIONELLA URINARY ANTIGEN TST 2021-10-15 21:48:00 Ahmed, Samir [facility] CT ANGIOGRAM CHEST 2021-10-15 19:22:00 Abu Zachary, Vi gomez [facility] CT ANGIOGRAM CHEST 2021-10-15 19:22:00 Abu Zachary, Em ran [facility] TROPONIN I 2021-10-15 17:29:00 Blanca Talavera [facility] RAPID INFLUENZA A/B 2021-10-15 17:29:00 Vito Bourgeois [facility] N-TERMINAL PRO-BNP 2021-10-15 17:29:00 Jose Bourgeois [facility] PROCALCITONIN 2021-10-15 17:29:00 Nicol Bourgeois [facility] COVID-19 (MOLECULAR TESTING NUCLEIC ACID AMPLIFICATION) 2021-10-15 17:29:00 Nicol Bourgeois [facility] LAB ONLY COVID INTERPRETATION 2021-10-15 17:29:00 Nicol Bourgeois [facility] TROPONIN I 2021-10-15 17:29:[facility]/B 2021-10-15 17:29:00 Vito Bourgeois [facility] N-TERMINAL PRO-BNP 2021-10-15 17:29:00 Jose Bourgeois [facility] PROCALCITONIN 2021-10-15 17:29:00 Nicol Bourgeois [facility] COVID-19 (MOLECULAR TESTING NUCLEIC ACID AMPLIFICATION) 2021-10-15 17:29:00 Nicol Bourgeois [facility] LAB ONLY COVID INTERPRETATION 2021-10-15 17:29:00 Vito Bourgeoisdaysi [facility] COVID-19 (ID NOW RAPID TESTING) 2021-10-15 13:03:00 Samir Galindo [facility] LAB ONLY COVID INTERPRETATION 2021-10-15 13:03:00 Samir Galindo [facility] COVID-19 (ID NOW RAPID TESTING) 2021-10-15 13:03:00 Josie [facility] LAB ONLY COVID INTERPRETATION 2021-10-15 13:03:00 Josie [facility] XR CHEST 1 VW 2021-10-15 09:46:38 [facility] 2021-10-15 09:46:38 Blanca Talavera [facility] MAGNESIUM 2021-10-15 08:16:00 Josie [facility] BASIC METABOLIC PANEL (NA, K, CL, CO2, GLUCOSE, BUN, CREATININE, CA) 2021-10-15 08:16:00 Josie [facility] PROCALCITONIN 2021-10-15 08:16:00 [facility] 2021-10-15 08:16:00 Josie [facility] BASIC METABOLIC PANEL (NA, K, CL, CO2, GLUCOSE, BUN, CREATININE, CA) 2021-10-15 08:16:00 Josie [facility] PROCALCITONIN 2021-10-15 08:16:00 [facility] ABG+COOX+NA+K+GLU+CA2+ 2021-10-15 07:24:[address] [facility] ABG+COOX+NA+K+GLU+CA2+ 2021-10-15 07:24:[address] [facility] TROPONIN I 2021-10-15 07:10:00 Blanca Talavera [facility] CBC WITH DIFF 2021-10-15 07:10:00 Josie [facility] TROPONIN I 2021-10-15 07:10:00 Ilan [facility] CBC WITH DIFF 2021-10-15 07:10:00 Josie [facility] MRSA / MSSA SCREEN BY PCR, LUKAS 2021-10-15 07:09:00 Josie [facility] MRSA / MSSA SCREEN BY PCR, NARCRYSTAL 2021-10-15 07:09:00 Samir Galindo [facility] AUTHORIZATION FOR RELEASE OF PHI 2021-06-09 05:01:00 Doctor Unassigned, Shafter [facility] Plan of Care Planned Activity Planned Date Details Comments Source Goal Plan of Care Note [code = 22520-5] Goal Plan of Care Note [code = 37967-4] Goal Plan of Care Note [code = 48216-8] Goal Plan of Care Note [code = 83150-4] Goal Plan of Care Note [code = 94366-4] Goal Plan of Care Note [code = 75163-8] Goal Plan of Care Note [code = 23746-6] Goal Plan of Care Note [code = 86179-8] Goal Plan of Care Note [code = 60655-1] Goal Plan of Care Note [code = 13807-0] Goal Plan of Care Note [code = 64359-3] Goal Plan of Care Note [code = 58390-7] Goal Plan of Care Note [code = 42772-5] Goal Plan of Care Note [code = 83231-6] Goal Plan of Care Note [code = 95075-5] Goal Plan of Care Note [code = 83604-5] Goal Plan of Care Note [code = 62878-9] Goal Plan of Care Note [code = 25018-3] Goal Plan of Care Note [code = 64746-6] Goal Plan of Care Note [code = 57097-8] Goal Plan of Care Note [code = 87643-6] Goal Plan of Care Note [code = 43446-8] Goal Plan of Care Note [code = 14358-2] Goal Plan of Care Note [code = 59675-8] Goal Plan of Care Note [code = 68156-8] Goal Plan of Care Note [code = 34328-3] Goal Plan of Care Note [code = 47971-9] Goal Plan of Care Note [code = 21049-3] Goal Plan of Care Note [code = 78427-8] Goal Plan of Care Note [code = 48564-0] Goal Plan of Care Note [code = 96692-9] Goal Plan of Care Note [code = 84387-0] Goal Plan of Care Note [code = 13340-3] Goal Plan of Care Note [code = 91661-5] Goal Plan of Care Note [code = 86041-5] Goal Plan of Care Note [code = 95167-3] Goal Plan of Care Note [code = 67482-1] Goal Plan of Care Note [code = 69618-1] Goal Plan of Care Note [code = 26117-8] Goal Plan of Care Note [code = 96492-6] Goal Plan of Care Note [code = 19966-8] Goal Plan of Care Note [code = 60809-5] Goal Plan of Care Note [code = 01072-0] Goal Plan of Care Note [code = 68881-6] Goal Plan of Care Note [code = 50818-9] Goal Plan of Care Note [code = 08829-9] Goal Plan of Care Note [code = 68210-0] Goal Plan of Care Note [code = 42917-1] Goal Plan of Care Note [code = 99098-4] Goal Plan of Care Note [code = 18880-2] Goal Plan of Care Note [code = 50734-1] Goal Plan of Care Note [code = 70716-8] Goal Plan of Care Note [code = 87861-4] Goal Plan of Care Note [code = 68857-9] Goal Plan of Care Note [code = 80117-9] Goal Plan of Care Note [code = 76717-7] Goal Plan of Care Note [code = 24456-9] Goal Plan of Care Note [code = 12852-4] Goal Plan of Care Note [code = 24886-3] Goal Plan of Care Note [code = 45444-9] Goal Plan of Care Note [code = 81291-1] Goal Plan of Care Note [code = 82927-0] Goal Plan of Care Note [code = 73360-5] Goal Plan of Care Note [code = 90913-2] Goal Plan of Care Note [code = 99385-2] Goal Plan of Care Note [code = 03810-2] Goal Plan of Care Note [code = 11758-6] Goal Plan of Care Note [code = 62948-4] Goal Plan of Care Note [code = 38413-1] Goal Plan of Care Note [code = 10459-3] Goal Plan of Care Note [code = 81931-5] Goal Plan of Care Note [code = 15498-3] Goal Plan of Care Note [code = 17110-2] Goal Plan of Care Note [code = 43847-1] Goal Plan of Care Note [code = 89511-2] Goal Plan of Care Note [code = 14738-1] Goal Plan of Care Note [code = 40588-0] Goal Plan of Care Note [code = 84419-2] Goal Plan of Care Note [code = 30209-5] Goal Plan of Care Note [code = 41302-1] Goal Plan of Care Note [code = 57362-3] Goal Plan of Care Note [code = 81703-6] Goal Plan of Care Note [code = 61268-3] Goal Plan of Care Note [code = 28307-6] Goal Plan of Care Note [code = 96453-0] Goal Plan of Care Note [code = 72649-9] Goal Plan of Care Note [code = 50868-9] Goal Plan of Care Note [code = 86028-4] Goal Plan of Care Note [code = 83381-7] Goal Plan of Care Note [code = 13022-7] Goal Plan of Care Note [code = 19235-1] Goal Plan of Care Note [code = 55697-2] Goal Plan of Care Note [code = 26327-0] Goal Plan of Care Note [code = 19410-8] Encounters Start Date/Time End Date/Time Encounter Type Admission Type Attending [facility] Facility Care Department Encounter ID Source 2023-12-10 15:24:04 2023-12-10 15:24:04 Outpatient [facility] [id number]ne Myers 2023-10-12 19:30:00 2023-10-12 23:58:00 Emergency X [facility] ERT [id number] [facility] 2023-10-12 19:30:00 2023-10-12 23:58:00 Emergency [facility] ([facility]) 1.2.840.114 350.1.13.10 4.2.7.2.686 [id number] [facility] 2023-09-25 08:35:13 2023-09-25 08:35:13 Outpatient [facility] [id number]ne Myers 2023-08-23 14:14:42 2023-08-23 14:14:42 Outpatient [facility] [id number] Myers 2023-08-23 00:00:00 2023-08-23 00:00:00 Orders Only Doctor Unassigned, Shafter [facility] 1.2.840.114 350.1.13.10 4.2.7.2.686 [id number] [facility] 2023-07-30 11:27:18 2023-07-30 11:27:18 Outpatient [facility] [id number] Myers 2023-07-23 13:48:13 2023-07-23 13:48:13 Outpatient [facility] [id number] Myers 2023-07-10 14:42:08 2023-07-10 14:42:08 Outpatient [facility] [id number] D[address]ne Myers 2023-07-04 00:00:00 2023-07-04 00:00:00 Outpatient GC_GCBZW_Ka diyala_S [facility] [id number] [facility] 2023-06-26 11:04:41 2023-06-26 11:04:41 Outpatient [facility] [id number] Myers 2023-06-12 14:49:18 2023-06-12 14:49:18 Outpatient [facility] [id number] [address]ne Myers 2023-06-03 21:46:00 2023-06-03 23:33:00 Emergency E ALIRIO, COLLETTE ALRIIO, COLLETTE [facility]CC [id number] [facility] 2023-05-30 10:27:39 2023-05-30 10:27:39 Outpatient [facility] [id number] Myers 2023-05-04 14:49:00 2023-05-04 16:40:00 Emergency E MANAN WONG, MANAN [facility] [id number] [facility] 2023-05-03 10:11:47 2023-05-03 10:11:47 Outpatient [facility] [id number] D[address]ne Myers 2023-04-30 08:40:38 2023-04-30 08:40:38 Outpatient [facility] [id number] D[address]ne Myers 2023-04-26 14:46:53 2023-04-26 14:46:53 Outpatient [facility] [id number] Dwayne Myers 2023-04-24 08:12:09 2023-04-24 08:12:09 Outpatient [facility] [id number] D[address]ne Myers 2023-04-14 21:33:00 2023-04-15 05:47:00 Emergency E CLYDE LEGGETT [facility] [id number] [facility] 2023-03-19 10:19:29 2023-03-19 10:19:29 Outpatient [facility] [id number] Myers 2023-02-19 09:15:24 2023-02-19 09:15:24 Outpatient [facility] [id number] D[address]ne Myers 2023-02-08 07:25:00 2023-02-08 11:19:00 Outpatient BHUMIKA PADILLAIR [facility] WWACU [id number] [facility] 2022-12-25 15:45:30 2022-12-25 15:45:30 Outpatient [facility] [id number] Myers 2022-12-25 00:00:00 2022-12-25 00:00:00 Orders Only Doctor Unassigned, Shafter [facility] 1.2.840.114 350.1.13.10 4.2.7.2.686 [id number] [facility] 2022-12-21 13:08:22 2022-12-21 13:08:22 Outpatient [facility] [id number] Myers 2022-12-19 09:43:00 2022-12-19 09:43:00 Outpatient [facility] [id number] D[address]ne Myers 2022-12-11 20:12:00 2022-12-11 22:35:00 Emergency E LÁZARO MUNIZ [facility] WWECC [id number] [facility] 2022-12-10:03:00 2022-12-10 20:52:00 Emergency X OREN TOVAR [facility] ERT [id number] [facility] 2022-12-10 19:03:00 2022-12-10 20:52:00 Emergency Oren Tovar [facility] 1.2.840.114 350.1.13.10 4.2.7.2.686 [id number] [facility] 2022-11-23 09:56:39 2022-11-23 09:56:39 Outpatient [facility] [id number]ne Myers 2022-11-22 00:00:00 2022-11-22 00:00:00 Orders Only Doctor Unassigned, Shafter [facility] 1.2.840.114 350.1.13.10 4.2.7.2.686 [id number] [facility] 2022-11-21 08:34:36 2022-11-21 08:34:36 Outpatient [facility] [address] [place] 2022-11-04 21:58:00 2022-11-05 17:13:00 Outpatient X [facility]L [facility] [id number] [facility] 2022-11-04 21:58:00 2022-11-05 17:13:00 Emergency Yuniel Mccray [facility] ([facility]) 1.2.840.114 350.1.13.10 4.2.7.2.686 [id number] [facility] 2022-10-02 10:16:38 2022-10-02 10:16:38 Outpatient [facility] [id number] [place] 2022-09-25 10:41:57 2022-09-25 10:41:57 Outpatient [facility] 3 Dwayne [address] [place] 2022-09-25 00:00:00 2022-09-25 00:00:00 Outpatient Visit [id number] 2022-09-22 10:48:03 2022-09-22 10:48:03 Outpatient [facility] [id number] Myers 2022-09-21 15:48:42 2022-09-21 15:48:42 Outpatient [facility] [id number]ne Myers 2022-09-21 00:00:00 2022-09-21 00:00:00 Outpatient Visit [id number] 2022-08-17 10:58:00 2022-08-17 13:20:00 Outpatient Jonh CAMERON LINDSEY [facility] WWACU [id number] [facility] 2022-08-11 11:20:53 2022-08-11 11:20:53 Outpatient [facility] [id number] Myers 2022-08-11 00:00:00 2022-08-11 00:00:00 Outpatient Visit [id number] 2022-07-25 19:54:00 2022-07-27 14:01:00 [facility] [id number] [facility] 2022-07-25 19:54:00 2022-07-27 14:01:00 Emergency Druze[facility] 1.2.840.114 350.1.13.10 4.2.7.2.686 [id number] [facility] 2022-07-20 13:25:00 2022-07-20 16:55:00 Outpatient Jonh CAMERON LINDSEY [facility] WWACU [id number] [facility] 2022-06-24 19:56:00 2022-06-26 05:00:00 Inpatient X ANAYA KLINE [facility] ERIN [id number] [facility] 2022-06-24 19:56:00 2022-06-26 05:00:00 Hospital Encounter Jaden Siddiqui Emran [facility] 1..840.114 350.1.13.10 4.2.7.2.686 [id number] [facility] 2022-06-23 18:38:00 2022-06-23 23:25:00 Emergency E LORAINE MELO [facility] [id number] [facility] 2022-06-21 23:43:00 2022-06-22 10:50:00 Outpatient CHRISTIAN MAN [facility] TELE [id number] [facility] 2022-06-15 11:12:00 2022-06-15 15:38:00 Outpatient Jonh CAMERON LINDSEY [facility] [id number] [facility] 2022-06-08 00:00:00 2022-06-08 00:00:00 Orders Only Doctor Unassigned, Shafter [facility] 1..840.114 350.1.13.10 4.2.7.2.686 [id number] [facility] 2022-05-31 20:15:00 2022-05-31 22:49:00 Emergency X GABRIEL GARCIA [facility] ERT [id number] [facility] 2022-05-31 20:15:00 2022-05-31 22:49:00 Emergency Gabriel Garcia [facility] 1..840.114 350.1.13.10 4.2.7.2.686 [id number] [facility] 2022-05-11 11:42:00 2022-05-11 23:59:00 Outpatient LINDSEY PADILLA [facility] [id number] [facility] 2022-04-17 20:00:00 2022-04-17 20:00:00 Outpatient R WILMAR MADISON STRAHIL [facility] [id number] [facility] 2022-04-15 08:00:00 2022-04-15 08:00:00 Outpatient R [facility] [id number] [facility] 2022-04-15 00:00:00 2022-04-15 00:00:00 Outpatient Visit [id number] 7582-08-04 12:15:00 2022-04-06 16:00:00 Outpatient Jonh CAMERON LINDSEY [facility] [id number] [facility] 2022-03-15 20:00:00 2022-03-15 22:30:00 Chief Lending Officer Visit 1, [facility] Sleep Lab Bed Wilmar Madison [facility] 1.2.840.114 350.1.13.10 4.2.7.2.686 [id number] [facility] 2022-03-15 20:00:00 2022-03-15 20:00:00 Outpatient R WILMAR MADISON STRAHIL [facility] [id number] [facility] 2022-03-14 15:30:00 2022-03-14 15:45:00 Laboratory Only Only, [facility] Test Marlys Madisonl Poppy [facility] 1.2.840.114 350.1.13.10 4.2.7.2.686 [id number] [facility] 2022-03-14 15:30:00 2022-03-14 15:30:00 Outpatient R WILMAR MADISON STRAHIL [facility] [id number] [facility] 2022-03-14 00:00:00 2022-03-14 00:00:00 Orders Only Doctor Unassigned, Shafter [facility] 1.840.114 350.1.13.10 4.2.7.2.686 [id number] [facility] 2022-02-25 18:18:00 2022-02-26 12:30:00 [facility] [id number] [facility] 2022-02-25 18:18:00 2022-02-26 12:30:00 [facility] 1..840.114 350.1.13.10 4.2.7.2.686 [id number] [facility] 2022-02-22 21:42:00 2022-02-23 01:19:00 Emergency X ANN BRO [facility] ERT [id number] [facility] 2022-02-22 21:42:00 2022-02-23 01:19:00 Emergency Seth Bro [facility] 1..840.114 350.1.13.10 4.2.7.2.686 [id number] [facility] 2022-01-29 14:38:00 2022-01-29 16:55:00 Emergency X JADEN SIDDIQUI LEANDRO [facility] ERT [id number] [facility] 2022-01-29 14:38:00 2022-01-29 16:55:00 [facility] 1..840.114 350.1.13.10 4.2.7.2.686 [id number] [facility] 2022-01-29 07:51:00 2022-01-29 10:37:00 Emergency X MAI DEL ROSARIO [facility] ERT [id number] [facility] 2022-01-29 07:51:00 2022-01-29 10:37:00 Emergency Mai Del Rosario [facility] 1.2.840.114 350.1.13.10 4.2.7.2.686 [id number] [facility] 2022-01-05 10:46:00 2022-01-05 14:42:00 Outpatient C BHUMIKA CAMERONIR [facility] [id number] [facility] 2022-01-02 21:43:00 2022-01-03 00:14:00 Emergency X JACKLYN GUILLEN [facility] ERT [id number] [facility] 2022-01-02 21:43:00 2022-01-03 00:14:00 Emergency Jacklyn Guillen [facility] 1.2.840.114 350.1.13.10 4.2.7.2.686 [id number] [facility] 2021-12-08 00:00:00 2021-12-08 00:00:00 Transition of Care [facility] 1.2.840.114 350.1.13.10 4.2.7.2.686 [id number] [facility] 2021-12-05 17:33:00 2021-12-07 12:01:00 Inpatient X GELY HERNANDEZ [facility] ERIN [id number] [facility] 2021-12-05 17:33:00 2021-12-07 12:01:00 Hospital Encounter Oren Tovar Wakili S Lakhani, Adnan [facility] 1.2.840.114 350.1.13.10 4.2.7.2.686 [id number] [facility] 2021-12-03 12:50:00 2021-12-05 05:42:00 Outpatient X TEQWIMUAH, [facility] [id number] [facility] 2021-12-03 12:50:00 2021-12-05 05:42:00 [facility] 1.2.840.114 350.1.13.10 4.2.7.2.686 [id number] [facility] 2021-11-23 00:00:00 2021-11-23 00:00:00 Orders Only Doctor Unassigned, Shafter [facility] 1.2840.114 350.1.13.10 4.2.7.2.686 [id number] [facility] 2021-11-15 00:00:00 2021-11-15 00:00:00 Edelmira Leblanc [facility] ([facility]) 1.2840.114 350.1.13.10 4.2.7.2.686 [id number] [facility] 2021-11-09 18:47:00 2021-11-11 17:31:00 Outpatient X MICHEL [facility] [id number] [facility] 2021-11-09 18:47:00 2021-11-11 17:31:00 [facility] 1.2840.114 350.1.13.10 4.2.7.2.686 [id number] [facility] 2021-11-07 00:00:00 2021-11-07 00:00:00 Orders Only Doctor Unassigned, Shafter [facility] 1.2840.114 350.1.13.10 4.2.7.2.686 [id number] [facility] 2021-11-03 00:00:00 2021-11-03 00:00:00 Orders Only Doctor Unassigned, Shafter [facility] 1.2.840.114 350.1.13.10 4.2.7.2.686 [id number] [facility] 2021-10-25 00:00:00 2021-10-25 00:00:00 Transition of Care [place] 1.2.840.114 350.1.13.10 4.2.7.2.686 [id number] [facility] 2021-10-15 00:23:00 2021-10-24 17:53:00 Inpatient U FLASH KIMBALL [facility] [id number] [facility] 2021-10-15 00:23:00 2021-10-24 17:53:00 Hospital Encounter Blanca Talavera, Faraz Guadarrama [facility] ([facility]) 1.2.840.114 350.1.13.10 4.2.7.2.686 [id number] [facility] 2021-10-21 10:00:00 2021-10-21 10:45:00 Surgery Abu Zachary, Anaya [facility] ([facility]) 1.2.840.114 350.1.13.10 4.2.7.2.686 [id number] [facility] 2021-06-09 00:00:00 2021-06-09 00:00:00 Orders Only Doctor Unassigned, Shafter [facility] 1.2840.114 350.1.13.10 4.2.7.2.686 [id number] [facility] 2012-11-25 00:00:00 2012-11-25 16:37:20 Outpatient GABRIEL SHAIKH BRENT [facility] [id number] [facility] 2012-04-08 00:00:00 2012-04-08 16:51:12 Outpatient [facility] [id number] [facility] 2011-04-13 00:00:00 2011-04-13 10:43:11 Outpatient [facility] [id number] [facility] 2010-09-15 00:00:00 2010-09-15 11:23:44 Outpatient [facility] [id number] [facility] 2010-03-11 00:00:00 2010-03-11 16:25:54 Outpatient [facility] [id number] [facility] 2009-09-13 00:00:00 2009-09-13 16:22:48 Outpatient [facility] [id number] [facility] 2009-08-31 00:00:00 2009-08-31 09:36:31 Outpatient [facility] [id number] [facility] Results Test Description Test Time Test Comments Results Result Comments Source XR KNEE 3 VW RIGHT 04:27:07 EXAM:XR KNEE 3 VW RIGHT, XR ANKLE 3+ VW RIGHT, XR FEMUR 2 VW RIGHT, XR HIPS 2 VW RIGHT HISTORY: 52 years old Female; Fall, knee pain COMPARISON: None FINDINGS: Radiographs of the right hip, femur, knee, and ankle demonstrates nodislocation. Severe right hip and mild knee degenerative changes are seenwith incongruity of the superior femoral head. Additionally, there ispatchy sclerosis of the right femoral head. Ankle mortise is congruent.Superior patellar enthesophytes are present. Posterior plantarenthesophytes are also seen. Dystrophic calcifications along the superiorpatellar tendon are suggested. [facility] XR HIPS 2 VW RIGHT 04:27:07 EXAM:XR KNEE 3 VW RIGHT, XR ANKLE 3+ VW RIGHT, XR FEMUR 2 VW RIGHT, XR HIPS 2 VW RIGHT HISTORY: 52 years old Female; Fall, knee pain COMPARISON: None FINDINGS: Radiographs of the right hip, femur, knee, and ankle demonstrates nodislocation. Severe right hip and mild knee degenerative changes are seenwith incongruity of the superior femoral head. Additionally, there ispatchy sclerosis of the right femoral head. Ankle mortise is congruent.Superior patellar enthesophytes are present. Posterior plantarenthesophytes are also seen. Dystrophic calcifications along the superiorpatellar tendon are suggested. [facility] XR ANKLE 3+ VW RIGHT 04:27:07 EXAM:XR KNEE 3 VW RIGHT, XR ANKLE 3+ VW RIGHT, XR FEMUR 2 VW RIGHT, XR HIPS 2 VW RIGHT HISTORY: 52 years old Female; Fall, knee pain COMPARISON: None FINDINGS: Radiographs of the right hip, femur, knee, and ankle demonstrates nodislocation. Severe right hip and mild knee degenerative changes are seenwith incongruity of the superior femoral head. Additionally, there ispatchy sclerosis of the right femoral head. Ankle mortise is congruent.Superior patellar enthesophytes are present. Posterior plantarenthesophytes are also seen. Dystrophic calcifications along the superiorpatellar tendon are suggested. [facility] XR FEMUR 2 VW RIGHT 04:27:07 EXAM:XR KNEE 3 VW RIGHT, XR ANKLE 3+ VW RIGHT, XR FEMUR 2 VW RIGHT, XR HIPS 2 VW RIGHT HISTORY: 52 years old Female; Fall, knee pain COMPARISON: None FINDINGS: Radiographs of the right hip, femur, knee, and ankle demonstrates nodislocation. Severe right hip and mild knee degenerative changes are seenwith incongruity of the superior femoral head. Additionally, there ispatchy sclerosis of the right femoral head. Ankle mortise is congruent.Superior patellar enthesophytes are present. Posterior plantarenthesophytes are also seen. Dystrophic calcifications along the superiorpatellar tendon are suggested. [facility] CT HEAD W/O CONTRAST *WW*2023-06-03 23:07:26 [facility] 1970 Sex: FEXAMINATION:CTHEAD W/O CONTRAST *WW*CLINICAL INDICATION:Female, 52 years old with Headache;Flu like symptomsTECHNIQUE: Axial CT images from the skull base to the vertex without intravenous contrast. Coronal and sagittal reformatted images were created from the data set.One or more of the following dose reductiontechniques were used: Automated exposure control, adjustment of the mA and/or kV according to patient size, and/or iterative reconstruction. COMPARISON: NoneFINDINGS:Intracranial: No evidence of acute infarction, intracranial hemorrhage, [...] significant soft tissue abnormalities. IMPRESSION:No acute intracranial abnormality.Electronically signed by: Zuleima Naranjo MD 06/03/2023 11:07 PM CDT , THIRD [id number] 06:05:55* Test Item Value Reference Range Interpretation Comme nts TSH, THIRD GENERATION (test code = 2821) 1.820 UIU/ML 0.400-4.100 UNLESS OTHERWISE INDICATED, ALL TESTING PERFORMED AT [facility] [address] [place] [address] DIRECTOR MARKET INTELLIGENCE: BO MILLER M.D. CLIA NUMBER [id number] [facility] [place]. [id number] U/S GALLBLADDER*WW*2023-04-15 05:22:28 [facility] : 1970 Sex: FDICTATION LOCATION: [id number]: Female, 52 years of age with abdominal [...] CDT ABDOMEN AND PELVIS WITH CONTRAST*WW*2023-04-15 02:03:27 [facility] : 1970 Sex: FEXAM: CT ABDOMEN PELVIS WITH IV CONTRASTLOCATION: [id number]: Abdominal painTECHNIQUE: Serial axial CT images wereobtained [...] Siddhartha Jackson DO 04/15/2023 2:03 AM CDT 7735HSJURINALYSIS WITH MICRO *WW*2023-04-15 01:39:00* Test Item Value [...] = USPERM) /HPF NONE URINE MONOCLONAL 2023-04-15 01:22:00* Test Item Value Reference Range Interpretation Comme nts PREG UR (test code = PGU) NEGATIVE NEGATIVE BRAIN NATRIURETIC PEPTIDE 2023-04-15 00:35:00* Test Item Value Reference Range Interpretation Comme nts BNP (test code = A74) 16 pg/mL See_Comment [Automated Misticoma ge] The system which generated this result transmitted reference range: <=100. The reference range was not used to interpret this result as normal/abnormal. PRO TIME AND PTT 2023-04-15 00:29:00* Test Item Value Reference Range Interpretation [...] = 31A) 33 IU/L 10-49 LIPASE SERUM WW2023-04-15 00:26:00* Test Item Value Reference Range Interpretation Comme nts LIPASE (test code = 60A) 36 IU/L 12-53 TROPONIN I *WW*2023-04-15 00:25:00* Test Item Value Reference Range Interpretation Comme nts TROPONIN I (test code = A84) 13.47 pg/mL 0.00-45.20 CBC (INCLUDES AUTOMATED DIFFERENTIAL)*[id number] 00:18:00* Test Item Value Reference Range Interpretation [...] WRBCMOR) NORMAL C-ARM<1 HR W IMAGES*WW*2023-02-08 11:26:14 [facility] : 1970 Sex: FFluoroscopyLocation Code: [id number] HISTORY: Back painComments: Fluoroscopy was provided during lumbar RFA. Approximately fluoroscopy time was 9.1 seconds. 2 fluoroscopic spot images were taken.IMPRESSION: Fluoroscopy services provided. Please see operative report for full details.Electronically signed by: Iglesia Garvey MD 02/08/2023 11:26 AM CDT + LH [id number] 07:50:33* Test Item Value Reference Range Interpretation [...] LUTEAL PHASE 1.0-11.4 IU/L POSTMENOPAUSAL 7.7-58.5 IU/L [facility] has important pathology staff changes effective 11/01/2022. New pathology staff will provide uninterrupted, excellent patient care and clinical consultation. See URL: [email or web address]. UNLESS OTHERWISE INDICATED, ALL TESTING PERFORMED AT [facility] [address] [place] [address] DIRECTOR MARKET INTELLIGENCE: BO MILLER M.D. CLIA NUMBER [id number] [place] [id number] XR KNEE RIGHT 1 OR 2 VIEW *WW*2022-12-11 21:28:07 [facility] : 1970 Sex: FExam: Right [...] Alexey Ott MD 12/11/2022 9:28 PM CDT 1519WG2AERTIEC STIMULATING [id number] 17:34:00* Test Item Value Reference Range Interpretation Comme nts TSH (test code = 7202863825) 1.00 See_Comment Biotin has been reported to cause a negative bias, interpret results relative to patient's use of biotin. [Automated message] The system which generated this result transmitted reference range: 0.45 - 4.70 mIU/L. The reference range was not used to interpret this result as normal/abnormal. Lab Interpretation (test code = 86549-2) Normal [facility] [id number] 14:56:35* Test Item Value Reference Range Interpretation Comme nts TROPONIN I (test code = 3164422548) 0.009 ng/mL <=0.034 LUCILLE (test code = [...] of biotin. Lab Interpretation (test code = 41391-3) Normal [facility] [id number] 07:53:48* Test Item Value Reference Range Interpretation Comme nts TROPONIN I (test code = 0186464838) 0.004 ng/mL <=0.034 LUCILLE (test code = [...] of biotin. Lab Interpretation (test code = 80007-9) Normal [facility] [id number] 07:53:48* Test Item Value Reference Range Interpretation Comme nts NT-proBNP (test code = 9986985218) 61 pg/mL <=125 LUCILLE (test code = LUCILLE) Biotin has been reported to cause a negative bias, interpret results relative to patient's use of biotin. Lab Interpretation (test code = 06426-4) Normal [facility]COMP. METABOLIC PANEL (78145)2022-11-05 07:41:51* Test Item Value Reference Range Interpretation Comme nts NA (test code = 7957042760) 139 mmol/L 135-145 K (test code = 7788991324) 4.4 mmol/L 3.5-5.0 CL (test code = 8053394609) 106 mmol/L 98-108 CO2 TOTAL (test code = 7763425930) 26 mmol/L 23-31 AGAP (test code = 4220882492) 7 2-16 BUN (test code = 2870990771) 9 mg/dL 7-23 GLUCOSE (test code = 4469366310) 100 mg/dL 70-110 CREATININE (test code = 2720637602) 0.86 mg/dL 0.50-1.04 TOTAL BILI (test code = 9715688440) 0.4 mg/dL 0.1-1.1 CALCIUM (test code = 1996519264) 9.1 mg/dL 8.6-10.6 T PROTEIN (test code = 3145287702) 6.8 g/dL 6.3-8.2 ALBUMIN (test code = 1425547566) 4.1 g/dL 3.5-5.0 ALK PHOS (test code = 7056285710) 74 U/L 34-122 ALTv (test code = 1742-6) 21 U/L 5-35 AST(SGOT) (test code = 9546978643) 23 U/L 13-40 eGFR (test code = 7508072904) 69.6 mL/min/1.73m2 LUCILLE (test code = LUCILLE) [...] or urine or abnormalities in imaging tests). [facility], [id number] 07:39:46* Test Item Value Reference Range Interpretation Comme nts PREG SERUM (test code = 8237210648) Negative LUCILLE (test code = LUCILLE) Less than 10 IU/L. ?If low titer or ectopic is suspected, resubmit specimen in 48-72 hours. [facility] SoutheastACTIVATED PARTIAL THRMPLAS [id number] 07:39:31* Test Item Value Reference Range Interpretation Comme [facility] APTT Patient (test code = 3173-2) 27 See_Comment [Automated messa SpearFysh] The system which generated this result transmitted reference range: 26 - 36 Seconds. The reference range was not used to interpret this result as normal/abnormal. Lab Interpretation (test code = 08665-7) Normal [facility] SoutheastPROTHROMBIN TIME / [id number] 07:39:31* Test Item Value Reference Range Interpretation Comme [facility] PROTIME PATIENT (test code = 5964-2) 13.4 See_Comment H [Automated messa ge] The system which generated this result transmitted reference range: 10.1 - 12.6 Seconds. The reference range was not used to interpret this result as normal/abnormal. INR (test code = 6301-6) 1.2 Normal INR <1.1; Warfarin Therapeutic range 2.0 to 3.0 or 2.5 to 3.5, depending upon the indications. Lab Interpretation (test code = 37956-9) Abnormal [facility] SoutheastD-[id number] 07:39:31* Test Item Value Reference Range Interpretation Comments D-DIMER (test code = 1163754323) 1.06 See_Comment H [Automated message] The system [...] a diagnosis. Lab Interpretation (test code = 24596-7) Abnormal [facility] Southeast[facility] WITH [id number] 07:28:32* Test Item Value Reference Range Interpretation Comme nts WBC (test code = 6690-2) 6.53 See_Comment [Automated messa ge] The system which generated this result transmitted reference range: 4.30 - 11.10 10*3/?L. The reference range was not used to interpret this result as normal/abnormal. RBC (test code = 789-8) 4.97 See_Comment [Automated messa ge] The system which [...] 32.3 g/dL 31.6-35.1 RDW-SD (test code = 78819-6) 46.0 fL 39.0-49.9 RDW-CV (test code = 788-0) 15.6 % 12.0-15.5 H PLT (test code = 777-3) 272 See_Comment [Automated messa ge] The system which generated this result transmitted reference range: 166 - 358 10*3/?L. The reference range was not used to interpret this result as normal/abnormal. MPV (test code = 81834-0) 11.5 fL 9.5-12.9 NRBC/100 WBC (test code = 8569135428) 0.0 See_Comment [Automated [employer] ssage] The system which generated this result transmitted reference range: 0.0 - 10.0 /100 WBCs. The reference range was not used to interpret this result as normal/abnormal. NRBC x10^3 (test code = 7797551121) See_Comment [Automated messa ge] The system which generated this result transmitted reference range: 10*3/?L. The reference range was not used to interpret this result as normal/abnormal. GRAN MAT (NEUT) % (test code = 770-8) 58.2 % IMM GRAN % (test code = 0265412639) 0.20 % LYMPH % (test code = 736-9) 31.1 % MONO % (test code = 5905-5) 9.3 % EOS % (test code = 713-8) 0.3 % BASO % (test code = 706-2) 0.9 % GRAN MAT x10^3(ANC) (test code = 9905189624) 3.80 10*3/uL 1.88-7.09 IMM GRAN x10^3 (test code = 9323086540) 0.00-0.06 LYMPH x10^3 (test code = 731-0) 2.03 10*3/uL 1.32-3.29 MONO x10^3 (test code = 742-7) 0.61 10*3/uL 0.33-0.92 EOS x10^3 (test code = 711-2) 0.03-0.39 L BASO x10^3 (test code = 704-7) 0.06 10*3/uL 0.01-0.07 Lab Interpretation (test code = 30542-6) Abnormal [facility]BUM[facility]/CREATININE RATIO, URINE, RANDOM 2022-11-03 05:51:41* Test Item Value Reference Range Interpretation Comme nts CREATININE, URINE, CONC. (test code = 2072) 356.1 MG/DL NOT ESTAB ALBUMIN, URINE, RANDOM (test code = 03422) 2.0 MG/DL NOT ESTAB CALC ALBUMIN/CREAT, RND (test code = 53651) 6 MG/G <30 Note: Albumin/Cr eatinine ratio reference interval reflects ADA and NKF guidelines. [facility] has important pathology staff changes effective 11/01/2022. New pathology staff will provide uninterrupted, excellent patient care and clinical consultation. See URL: [email or web address]. UNLESS OTHERWISE INDICATED, ALL TESTING PERFORMED AT [facility] [address] [place] [address] DIRECTOR MARKET INTELLIGENCE: SADIQ VANEGAS M.D. CLIA NUMBER [id number] [place]. [id number] 05:26:24* Test Item Value Reference Range Interpretation Comme nts NT-proBNP (test code = 99016) <50 PG/ML SEE BELOW If NT-ProBNP is less than 300 PG/ML, heart failure is unlikely for allages. Age.................Heart Failure Likely <50 Years...........>=450 PG/ML 50-75 Years.........>=900 PG/ML > 75 Years..........>=1800 PG/ML Methodology: Herrenschmiede Raine Electrochemiluminescense Immunoassay COMPREHENSIVE METABOLIC [id number] 06:45:27* Test Item Value Reference Range Interpretation Comme nts GLUCOSE (test code = 2216) 126 MG/DL 70-99 H BUN (test code = 2207) 12 MG/DL 6-20 CREATININE (test code = 2213) 1.24 MG/DL 0.60-1.30 eGFR (2020 CKD-EPI) (test code = 00849) 53 ML/MIN/1.73 >60 L The NKF-ASN Taskforce recommends use of Cystatin C to confirm eGFR inadults at risk for CKD. [facility] offers eGFR with Cystatin C-Creatinineusing the 2020 CKD-EPI eGFR_creat-cystat equation (order code 3057) toincrease the accuracy of estimated GFR. For more information, contactur consolidation accountant or see announcement [email or web address] CALC BUN/CREAT (test code = 2234) 10 RATIO 6-28 SODIUM (test code = 2230) 144 MEQ/L 133-146 POTASSIUM (test code = 8) 4.0 MEQ/L 3.5-5.4 CHLORIDE (test code = 2214) 110 MEQ/L 95-107 H CARBON DIOXIDE (test code = 2205) 18 MEQ/L 19-31 L CALCIUM (test code = 2208) 9.3 MG/DL 8.5-10.5 PROTEIN, TOTAL (test code = 2228) 6.7 G/DL 6.1-8.3 ALBUMIN (test code = 2200) 4.3 G/DL 3.5-5.2 CALC GLOBULIN (test code = 2239) 2.4 G/DL 1.9-3.7 CALC A/G RATIO (test code = 2234) 1.8 RATIO 1.0-2.6 BILIRUBIN, TOTAL (test code = 2207) 0.3 MG/DL See_Comment [Automated me ssage] The system which generated this result transmitted reference range: <=1.2. The reference range was not used to interpret this result as normal/abnormal. ALKALINE PHOSPHATASE (test code = 2203) 77 U/L 40-130 AST (test code = 2218) 16 U/L 9-40 ALT (test code = 2219) 15 U/L 5-40 LIPID [id number] 06:45:27* Test Item Value Reference Range Interpretation Comme nts CHOLESTEROL (test code = 2210) 182 MG/DL <200 TRIGLYCERIDES (test code = 2) 82 MG/DL <150 HDL CHOLESTEROL (test code = 0) 50 MG/DL >39 CALC LDL CHOL (test code = 2237) 114 MG/DL <100 H NOTE: CALCULATED LDL IS BASED ON GLENIS-MIRELES METHOD WHICHINCLUDES ADJUSTABLE TRIGLYCERIDE:VLDL CHOLESTEROL RATIO.THIS FACTOR VARIES BY MEASURED TRIGLYCERIDE AND NON-HDLCHOLESTEROL CONCENTRATIONS WITH INCREASED CALCULATED LDL SEENIN HIGHER TRIGLYCERIDE OR LOWER NON-HDL SPECIMENS. FOR MOREINFORMATION, SEE CLIENT ANNOUNCEMENT AT [email or web address] RATIO LDL/HDL (test code = 2238) 2.28 RATIO <3.22 HEMOGLOBIN [id number] 02:34:56* Test Item Value Reference Range Interpretation Comme nts HEMOGLOBIN A1c (test code = 97427) 6.4 % 4.2-5.6 H UNLESS OTHERWISE INDICATED, ALL TESTING PERFORMED [facility] [address] [place] [id number] [employer]IGENCE: SADIQ VANEGAS M.D. CLIA NUMBER [id number] [place]. [id number] C-ARM<1 HR W IMAGES*WW*2022-08-17 13:28:04 [facility] : 1970 Sex: FFLUOROSCOPYCLINICAL HISTORY: Surgical procedure Comments: Intraoperative fluoroscopy services were provided. A radiologist was not present for the procedure. Selected images demonstrate bilateral needle placement in the lower lumbar spine. Total fluoroscopy time: 3.8 seconds. Image count: 2IMPRESSION: Fluoroscopyservices provided. Please see separate operative report for detailed findings.Location: [id number] signed by: Dane Ann MD 08/17/2022 1:28 PM [facility] [id number] URINE MONOCLONAL *WW*2022-08-17 13:05:00* Test Item Value Reference Range Interpretation Comme nts PREG UR (test code = PGU) NEGATIVE NEGATIVE [id number] 20:14:57* Test Item Value Reference Range Interpretation Comme nts MAGNESIUM (test code = 3221859575) 1.7 mg/dL 1.7-2.4 Lab Interpretation (test cod e = 62502-8) [facility] 18:53:16* Test Item Value Reference Range Interpretation Comme nts Height (test code = 5627127773) in Weight (test code = 8450161397) lbs Systolic BP (test code = 5160590642) mmHg Diastolic BP (test code = 4664745456) mmHg Heart Rate (test code = 7078987957) bpm BSA (test code = 0039654409) 2.00 m2 Radiology Study observation (narrative) (test code = 70278-7) LUCILLE (test code = LUCILLE) ?Left?Ventricle: Left [...] A limited echocardiogram was performed using 2D. [facility]N-TERMINAL [id number] 03:58:31* Test Item Value Reference Range Interpretation Comme nts NT-proBNP (test code = 6011320228) 580 pg/mL See_Comment H [Automated message] The system which generated this result transmitted reference range: <=125. The reference range was not used to interpret this result as normal/abnormal. LUCILLE (test code = LUCILLE) Biotin has been reported to cause a negative bias, interpret results relative to patient's use of biotin. Lab Interpretation (test code = 53594-5) Abnormal [facility]TROP[facility] [id number] 03:21:06* Test Item Value Reference Range Interpretation Comments TROPONIN I (test code = 9517349397) 0.013 ng/mL See_Comment [Automated message] The system [...] of biotin. Lab Interpretation (test code = 39144-0) Normal [facility]PREG[facility]NCY TEST, [id number] 03:20:56* Test Item Value Reference Range Interpretation Comme nts PREG SERUM (test code = 8495005577) Negative LUCILLE (test code = LUCILLE) Less than 10 IU/L. ?If low titer or ectopic is suspected, resubmit specimen in 48-72 hours. [facility]. METABOLIC PANEL (46426)2022-07-26 03:09:22* Test Item Value Reference Range Interpretation Comme nts NA (test code = 2569093141) 137 mmol/L 135-145 K (test code = 0813617221) 4.5 mmol/L 3.5-5.0 CL (test code = 8659558779) 106 mmol/L 98-108 CO2 TOTAL (test code = 8681840843) 21 mmol/L 23-31 L AGAP (test code = 9108147208) 2-16 BUN (test code = 7649218679) 19 mg/dL 7-23 GLUCOSE (test code = 1085093902) 154 mg/dL 70-110 H CREATININE (test code = 3523432437) 0.97 mg/dL 0.50-1.04 TOTAL BILI (test code = 9385086106) 0.3 mg/dL 0.1-1.1 CALCIUM (test code = 3604047845) 9.6 mg/dL 8.6-10.6 T PROTEIN (test code = 8012539684) 6.8 g/dL 6.3-8.2 ALBUMIN (test code = 2468659615) 4.1 g/dL 3.5-5.0 ALK PHOS (test code = 3584743044) 144 U/L 34-122 H ALTv (test code = 1742-6) 41 U/L 5-35 H AST(SGOT) (test code = 8936094100) 24 U/L 13-40 eGFR (test code = 0383099221) mL/min/1.73m2 LUCILLE (test code = LUCILLE) Association [...] imaging tests). Lab Interpretation (test code = 64083-3) Abnormal [facility] SoutheastD-NYKMT2034-72-17 03:06:05* Test Item Value Reference Range Interpretation Comments D-DIMER (test code = 8521830932) See_Comment H [Automated message] The system which [...] a diagnosis. Lab Interpretation (test code = 12678-8) Abnormal [facility] WITH [id number] 02:34:21* Test Item Value Reference Range Interpretation Comme nts WBC (test code = 6690-2) See_Comment H [Automated messa ge] The system which generated this result transmitted reference range: 4.30 - 11.10 10*3/?L. The reference range was not used to interpret this result as normal/abnormal. RBC (test code = 789-8) See_Comment [Automated messa ge] The system which [...] 32.2 g/dL 31.6-35.1 RDW-SD (test code = 20256-0) 48.4 fL 39.0-49.9 RDW-CV (test code = 788-0) 16.6 % 12.0-15.5 H PLT (test code = 777-3) See_Comment [Automated messa ge] The system which generated this result transmitted reference range: 166 - 358 10*3/?L. The reference range was not used to interpret this result as normal/abnormal. MPV (test code = 38965-8) 10.4 fL 9.5-12.9 NRBC/100 WBC (test code = 2179888075) See_Comment [Automated [employer] ssage] The system which generated this result transmitted reference range: 0.0 - 10.0 /100 WBCs. The reference range was not used to interpret this result as normal/abnormal. NRBC x10^3 (test code = 5501775029) See_Comment [Automated messa ge] The system which generated this result transmitted reference range: 10*3/?L. The reference range was not used to interpret this result as normal/abnormal. GRAN MAT (NEUT) % (test code = 770-8) 85.4 % IMM GRAN % (test code = 7266307074) 2.00 % LYMPH % (test code = 736-9) 9.9 % MONO % (test code = 5905-5) 1.9 % EOS % (test code = 713-8) 0.3 % BASO % (test code = 706-2) 0.5 % GRAN MAT x10^3(ANC) (test code = 0683054113) 9.84 10*3/uL 1.88-7.09 H IMM GRAN x10^3 (test code = 8394959251) 0.23 10*3/uL 0.00-0.06 H LYMPH x10^3 (test code = 731-0) 1.14 10*3/uL 1.32-3.29 L MONO x10^3 (test code = 742-7) 0.22 10*3/uL 0.33-0.92 L EOS x10^3 (test code = 711-2) 0.03 10*3/uL 0.03-0.39 BASO x10^3 (test code = 704-7) 0.06 10*3/uL 0.01-0.07 Lab Interpretation (test code = 93376-2) Abnormal [facility] SoutheastPOCT [id number] 02:25:00* Test Item Value Reference Range Interpretation Comme nts POCT PREG (test code = 1605) Negative On board controls acceptable with C Line (test code = 3574) Present POCT PREG LOT # (test code = 3575) [id number] POCT PREG TEST DATE ( test code = 3576) 12/02/2023 Lab Interpretation (test cod e = 40425-0) Normal [facility]Y UR[facility] MONOCLONAL *WW*2022-07-20 14:10:00* Test Item Value Reference Range Interpretation Comme nts PREG UR (test code = PGU) NEGATIVE NEGATIVE BLOOD [id number] 07:22:00* Test Item Value Reference Range Interpretation Comme nts Culture Observations (test code = COB1) POSITIVE BLOOD CULTURE A Culture Observations (test code = COB2) 1 OF 2 BOTTLES Isolate 1 (test code = ISO1) Diphtheroids Troponin [id number] 11:14:56* Test Item Value Reference Range Interpretation Comments TROPONIN I (test code = 1331576675) 0.035 ng/mL See_Comment H Hemolyzed specimen [Automated [...] of biotin. Lab Interpretation (test code = 94975-8) Abnormal [facility] SoutheastDIRECT STREP GROUP [id number] 10:18:00* Test Item Value Reference Range Interpretation Comme nts Culture Observations (test code = COB1) NO BETA HEMOLYTIC STREPTOCOCCUS ISOLATED Direct Exam (test code = DE3) NEGATIVE FOR STREP A ANTIGEN BLOOD [id number] 07:35:00* Test Item Value Reference Range Interpretation Comments Culture Observations (test code = COB1) POSITIVE BLOOD CULTURE Culture Observations (test code = COB2) 1 OF 4 BOTTLES Isolate 1 (test code = ISO1) Coagulase negative staphylococcus POSSIBLE CONTAMINANTIF SUSCEPTIBILITY NEEDED, PLEASE NOTIFY MICRO WITHIN [address] CHEST W/O [id number] 21:52:03 [facility] : 1970 Sex: FEXAMINATION:CTCHEST W/O [...] Fidencio Thurston MD 06/23/2022 9:52 PM CDT [id number] 21:26:00* Test Item Value Reference Range Interpretation Comme nts PROCALCITONIN (test code = PCT) 0.13 ng/mL 0.00-0.24 PROCALCITONIN REF (test code = PCTH) PROCALCITONIN REFERENCE RANGE < 0.25 ng/mL suggests viral infection on day of admission 0.25-0.5 ng/mL young zone >0.5 ng/mL is highly suggestive of bacterial infection BRAIN NATRIURETIC [id number] 21:04:00* Test Item Value Reference Range Interpretation Comme nts BNP (test code = A74) 24 pg/mL See_Comment [Automated messa [employer]] The system which generated this result transmitted reference range: <=100. The reference range was not used to interpret this result as normal/abnormal. DIRECT INFLUENZA A AND B [id number] 21:00:00* Test Item Value Reference Range Interpretation [...] the FDA and the College of the [place] [employer] (CAP) are more stringent than those required for this test. Therefore, the result should be interpreted with caution and close attention to other clinical and epidemiological data COMPREHENSIVE METABOLIC [id number] 20:46:00* Test Item Value Reference Range Interpretation [...] code = 31A) 68 IU/L 10-49 H [id number] 20:46:00* Test Item Value Reference Range Interpretation Comme nts MAGNESIUM (test code = 48A) 2.1 mg/dL 1.6-2.6 TROPONIN [id number] 20:46:00* Test Item Value Reference Range Interpretation Comme nts TROPONIN I (test code = A84) 8.36 pg/mL 0.00-45.20 CBC WITH [id number] 20:44:00* Test Item Value Reference Range Interpretation [...] MICRO) 1+ NONE A PRO TIME AND [id number] 20:43:00* Test Item Value Reference Range Interpretation [...] or LMW Heparin. Order Code is ANTI-XA [id number] 20:43:00* Test Item Value Reference Range Interpretation Comme nts D-DIMER (test code = DDI) 286 ng/mL D-DU 0-234 H D-DIMER COMMENT (test code = DDCOM) *Level to rule out DVT or PE: <235 ng/mL D-DU* SERUM [id number] 20:40:00* Test Item Value Reference Range Interpretation Comme nts PREG SRM (test code = PGS) NEGATIVE NEGATIVE LACTIC [id number] 20:17:00* Test Item Value Reference Range Interpretation Comme nts LACTIC ACD (test code = LA) 0.9 mmol/L 0.4-2.0 XR CHEST 1 VIEW [id number] 20:05:47 [facility] : 1970 Sex: FLocation code: D9Yjrwi 1 viewIndication: Dyspnea.Comparison: 06/21/2022Findings:The heart and mediastinum are not remarkable.Costophrenic angles are clear.Elevation of the right hemidiaphragm and small right basilar atelectasis.ACDF lower cervical spineImpression:1. No change. Elevation the right hemidiaphragm and small right basilar atelectasisElectronically signed by: Bucky Keith MD 06/23/2022 8:05 PM CDT DCIHR *WW*2022-06-22 05:27:00* Test Item Value Reference Range [...] [facility] : 1970 Sex: FEXAMINATION:CTCHEST W/ [...] code = A49) 3.4 ng/mL See_Comment [Automated [employer]] The system which generated this result transmitted reference range: <=3.6. The reference range was not used to interpret this result as normal/abnormal. MAGNESIUM WW2022-06-21 21:52:00* Test Item Value Reference Range Interpretation Comme nts MAGNESIUM (test code = 48A) 2.3 mg/dL 1.6-2.6 CPK 2022-06-21 21:50:00* Test Item Value Reference Range Interpretation Comme nts CPK (test code = 32A) 176 IU/L 34-145 H AMYLASE AND LIPASE 2022-06-21 21:50:00* Test Item Value Reference Range Interpretation Comme nts AMYLASE (test code = 10A) 54 U/L 28-100 LIPASE (test code = 60A) 39 IU/L 12-53 COMPREHENSIVE METABOLIC ENRIQUE 2022-06-21 21:50:00* Test Item Value Reference Range [...] the FDA and the [employer] of the [place] (CAP) are more stringent than those required for this test. Therefore, the result should be interpreted with caution and close attention to other clinical and epidemiological data DIRECT INFLUENZA A AND B [id number] 20:50:00* Test Item Value Reference Range Interpretation Comme nts Direct Exam (test code = DE3) PRESUMPTIVE NEGATIVE FOR THE PRESENCE OF INFLUENZA ANTIGEN XR CHEST 1 VIEW PORTABLE *WW*2022-06-21 20:39:36 [facility] : 1970 Sex: FEXAMINATION:XRCHEST 1 [...] Fidencio Thurston MD 06/21/2022 8:39 PM CDT [id number] NATRIURETIC PEPTIDE *WW* 2022-06-21 20:38:00* Test Item Value Reference Range Interpretation Comme nts BNP (test code = A74) 22 pg/mL See_Comment [Automated [employer]] The system which generated this result transmitted reference range: <=100. The reference range was not used to interpret this result as normal/abnormal. SERUM MONOCLONAL *WW*2022-06-21 20:27:00* Test Item Value Reference Range Interpretation Comme nts PREG SRM (test code = PGS) NEGATIVE NEGATIVE C-ARM<1 HR W IMAGES*WW*2022-06-15 16:54:53 [facility] : 1970 Sex: FFluoroscopyLocation Code: [id number] HISTORY: Surgical procedureComments: Fluoroscopy was provided during [...] NEGATIVE NEGATIVE C-ARM<1 HR W IMAGES*WW*2022-05-12 08:26:58 [facility] : 1970 Sex: FClinical history: [...] Alexey Ott MD 05/12/2022 8:26 AM CDT [id number] URINE MONOCLONAL *WW*2022-05-11 12:51:00* Test Item Value Reference Range Interpretation Comme nts PREG UR (test code = PGU) NEGATIVE NEGATIVE C-ARM<1 HR W IMAGES*WW*2022-04-06 16:03:45 [facility] : 1970 Sex: FFluoroscopyLocation Code: [id number] HISTORY: Neck painComments: Fluoroscopy was provided during bilateral medial branch block. Approximately fluoroscopy time was 5.0 seconds. 2 fluoroscopic spot images were taken.IMPRESSION: Fluoroscopy services provided. Please see operative report for full details.Electronically signed by: Iglesia Garvey MD 04/06/2022 4:03 PM CDT [id number] URINE MONOCLONAL *WW*2022-04-06 12:39:00* Test Item Value Reference Range Interpretation Comme nts PREG UR (test code = PGU) NEGATIVE NEGATIVE Basic Metabolic Panel (NA, K, CL, CO2, GLUCOSE, BUN, CREATININE, CA)2022-02-26 09:48:31* Test Item Value Reference Range Interpretation Comme nts NA (test code = 0987127912) 143 mmol/L 135-145 K (test code = 6424611385) 3.5 mmol/L 3.5-5.0 CL (test code = 1714608586) 114 mmol/L 98-108 H CO2 TOTAL (test code = 1403775263) 24 mmol/L 23-31 AGAP (test code = 6733746317) 2-16 BUN (test code = 9995426468) 9 mg/dL 7-23 GLUCOSE (test code = 9950100757) 96 mg/dL 70-110 CREATININE (test code = 7628579985) 0.92 mg/dL 0.50-1.04 CALCIUM (test code = 1855899792) 8.1 mg/dL 8.6-10.6 L eGFR (test code = 0201282974) mL/min/1.73m2 LUCILLE (test code = LUCILLE) Association [...] imaging tests). Lab Interpretation (test code = 18340-8) Abnormal [facility] with [id number] 09:36:32* Test Item Value Reference Range Interpretation Comme nts WBC (test code = 6690-2) See_Comment [[employer]] The system which generated this result transmitted reference range: 4.30 - 11.10 10*3/?L. The reference range was not used to interpret this result as normal/abnormal. RBC (test code = 789-8) See_Comment [Automated [employer]] The system which generated this result transmitted [...] g/dL 31.6-35.1 L RDW-SD (test code = 73204-5) 46.8 fL 39.0-49.9 RDW-CV (test code = 788-0) 16.7 % 12.0-15.5 H PLT (test code = 777-3) See_Comment [Automated messa ge] The system which generated this result transmitted reference range: 166 - 358 10*3/?L. The reference range was not used to interpret this result as normal/abnormal. MPV (test code = 54188-8) 10.8 fL 9.5-12.9 NRBC/100 WBC (test code = 1652347321) See_Comment [Automated [employer] ssage] The system which generated this result transmitted reference range: 0.0 - 10.0 /100 WBCs. The reference range was not used to interpret this result as normal/abnormal. NRBC x10^3 (test code = 6514476646) <0.01 See_Comment [Automated messa ge] The system which generated this result transmitted reference range: 10*3/?L. The reference range was not used to interpret this result as normal/abnormal. GRAN MAT (NEUT) % (test code = 770-8) 54.4 % IMM GRAN % (test code = 6193599516) 0.20 % LYMPH % (test code = 736-9) 31.5 % MONO % (test code = 5905-5) 8.7 % EOS % (test code = 713-8) 3.2 % BASO % (test code = 706-2) 2.0 % GRAN MAT x10^3(ANC) (test code = 3025787006) 2.69 10*3/uL 1.88-7.09 IMM GRAN x10^3 (test code = 8197159784) <0.03 0.00-0.06 LYMPH x10^3 (test code = 731-0) 1.56 10*3/uL 1.32-3.29 MONO x10^3 (test code = 742-7) 0.43 10*3/uL 0.33-0.92 EOS x10^3 (test code = 711-2) 0.16 10*3/uL 0.03-0.39 BASO x10^3 (test code = 704-7) 0.10 10*3/uL 0.01-0.07 H Lab Interpretation (test code = 95057-4) Abnormal [facility]TR[facility]IN [id number] 04:00:15* Test Item Value Reference Range Interpretation Comments TROPONIN I (test code = 5448245205) 0.004 ng/mL See_Comment [Automated message] The system [...] of biotin. Lab Interpretation (test code = 55881-7) Normal [facility]N-TERMINAL [id number] 04:00:15* Test Item Value Reference Range Interpretation Comme nts NT-proBNP (test code = 0227060179) 42 pg/mL See_Comment [Automated message] The system which generated this result transmitted reference range: <=125. The reference range was not used to interpret this result as normal/abnormal. LUCILLE (test code = LUCILLE) Biotin has been reported to cause a negative bias, interpret results relative to patient's use of biotin. Lab Interpretation (test code = 75951-1) Normal [facility] SoutheastCOMP. METABOLIC PANEL (93865)2022-02-26 03:48:34* Test Item Value Reference Range Interpretation Comme nts NA (test code = 2895053674) 142 mmol/L 135-145 K (test code = 9131688996) 3.6 mmol/L 3.5-5.0 Slight hemolysis CL (test code = 2720110586) 109 mmol/L 98-108 H CO2 TOTAL (test code = 9099727935) 26 mmol/L 23-31 AGAP (test code = 4838844743) 2-16 BUN (test code = 7596407704) 10 mg/dL 7-23 Slight hemolysis GLUCOSE (test code = 2606401386) 84 mg/dL 70-110 CREATININE (test code = 5348468827) 0.99 mg/dL 0.50-1.04 TOTAL BILI (test code = 3105056601) 0.4 mg/dL 0.1-1.1 CALCIUM (test code = 7570428179) 8.9 mg/dL 8.6-10.6 T PROTEIN (test code = 7486194883) 6.5 g/dL 6.3-8.2 ALBUMIN (test code = 4099320325) 4.0 g/dL 3.5-5.0 ALK PHOS (test code = 2172331082) 71 U/L 34-122 Slight hemolysis ALTv (test code = 1742-6) 18 U/L 5-35 AST(SGOT) (test code = 3859267944) 25 U/L 13-40 Slight hemolysis eGFR (test code = 4446514740) mL/min/1.73m2 LUCILLE (test code = LUCILLE) Association [...] imaging tests). Lab Interpretation (test code = 91542-5) Abnormal [facility] SoutheastLIPASE2022-06-26 03:48:34* Test Item Value Reference Range Interpretation Comme nts LIPASE (test code = 3914746899) 166 U/L 0-220 Lab Interpretation (test cod e = 10888-8) Normal [facility] SoutheastCB WITH [id number] 03:34:33* Test Item Value Reference Range Interpretation Comme nts WBC (test code = 6690-2) See_Comment [Automated [employer]] The system which generated this result transmitted reference range: 4.30 - 11.10 10*3/?L. The reference range was not used to interpret this result as normal/abnormal. RBC (test code = 789-8) See_Comment [Automated [employer]] The system which generated this result transmitted [...] g/dL 31.6-35.1 L RDW-SD (test code = 37606-9) 47.2 fL 39.0-49.9 RDW-CV (test code = 788-0) 16.8 % 12.0-15.5 H PLT (test code = 777-3) See_Comment [Automated messa ge] The system which generated this result transmitted reference range: 166 - 358 10*3/?L. The reference range was not used to interpret this result as normal/abnormal. MPV (test code = 09288-5) 10.3 fL 9.5-12.9 NRBC/100 WBC (test code = 3629378547) See_Comment [Automated [employer]] The system which generated this result transmitted reference range: 0.0 - 10.0 /100 WBCs. The reference range was not used to interpret this result as normal/abnormal. NRBC x10^3 (test code = 9139172467) <0.01 See_Comment [Automated messa ge] The system which generated this result transmitted reference range: 10*3/?L. The reference range was not used to interpret this result as normal/abnormal. GRAN MAT (NEUT) % (test code = 770-8) 51.0 % IMM GRAN % (test code = 9900126426) 0.20 % LYMPH % (test code = 736-9) 31.6 % MONO % (test code = 5905-5) 10.7 % EOS % (test code = 713-8) 4.3 % BASO % (test code = 706-2) 2.2 % GRAN MAT x10^3(ANC) (test code = 1563623243) 2.59 10*3/uL 1.88-7.09 IMM GRAN x10^3 (test code = 6995593588) <0.03 0.00-0.06 LYMPH x10^3 (test code = 731-0) 1.60 10*3/uL 1.32-3.29 MONO x10^3 (test code = 742-7) 0.54 10*3/uL 0.33-0.92 EOS x10^3 (test code = 711-2) 0.22 10*3/uL 0.03-0.39 BASO x10^3 (test code = 704-7) 0.11 10*3/uL 0.01-0.07 H Lab Interpretation (test code = 95713-3) Abnormal [facility] SoutheastMARVAROPER HOSPITALNAZIA [id number] 06:03:26* Test Item Value Reference Range Interpretation Comments TROPONIN I (test code = 2199494148) 0.003 ng/mL See_Comment [Automated message] The system [...] of biotin. Lab Interpretation (test code = 57969-5) Normal [facility] SoutheastTROPONIN [id number] 03:56:22* Test Item Value Reference Range Interpretation Comments TROPONIN I (test code = 0865890370) 0.003 ng/mL See_Comment [Automated message] The system [...] of biotin. Lab Interpretation (test code = 85611-0) Normal [facility] SoutheastN-TERMINAL [id number]-[id number] 03:53:00* Test Item Value Reference Range Interpretation Comme nts NT-proBNP (test code = 3162453039) 143 pg/mL See_Comment H [Automated message] The system which generated this result transmitted reference range: <=125. The reference range was not used to interpret this result as normal/abnormal. LUCILLE (test code = LUCILLE) Biotin has been reported to cause a negative bias, interpret results relative to patient's use of biotin. Lab Interpretation (test code = 52113-1) Abnormal [facility]. METABOLIC PANEL (94993)2022-02-23 03:45:59* Test Item Value Reference Range Interpretation Comme nts NA (test code = 4776097752) 140 mmol/L 135-145 K (test code = 5704285623) 4.0 mmol/L 3.5-5.0 CL (test code = 3139271638) 110 mmol/L 98-108 H CO2 TOTAL (test code = 0926069933) 17 mmol/L 23-31 L AGAP (test code = 1725987106) 2-16 BUN (test code = 0109857778) 14 mg/dL 7-23 GLUCOSE (test code = 0911006071) 105 mg/dL 70-110 CREATININE (test code = 8560059009) 1.03 mg/dL 0.50-1.04 TOTAL BILI (test code = 9527313697) 0.3 mg/dL 0.1-1.1 CALCIUM (test code = 8594643097) 8.9 mg/dL 8.6-10.6 T PROTEIN (test code = 1754674854) 6.1 g/dL 6.3-8.2 L ALBUMIN (test code = 8546667707) 3.8 g/dL 3.5-5.0 ALK PHOS (test code = 6935929635) 91 U/L 34-122 ALTv (test code = 1742-6) 19 U/L 5-35 AST(SGOT) (test code = 2081721369) 21 U/L 13-40 eGFR (test code = 2570476779) mL/min/1.73m2 LUCILLE (test code = LUCILLE) Association [...] imaging tests). Lab Interpretation (test code = 66146-6) Abnormal [facility] WITH [id number] 03:23:19* Test Item Value Reference Range Interpretation Comme nts WBC (test code = 6690-2) See_Comment [[employer]] The system which generated this result transmitted reference range: 4.30 - 11.10 10*3/?L. The reference range was not used to interpret this result as normal/abnormal. RBC (test code = 789-8) See_Comment [[employer]] The system which generated this result transmitted [...] g/dL 31.6-35.1 L RDW-SD (test code = 78082-1) 45.7 fL 39.0-49.9 RDW-CV (test code = 788-0) 16.6 % 12.0-15.5 H PLT (test code = 777-3) See_Comment [Automated messa ge] The system which generated this result transmitted reference range: 166 - 358 10*3/?L. The reference range was not used to interpret this result as normal/abnormal. MPV (test code = 73739-4) 10.9 fL 9.5-12.9 NRBC/100 WBC (test code = 9096410220) See_Comment [Automated [employer]] The system which generated this result transmitted reference range: 0.0 - 10.0 /100 WBCs. The reference range was not used to interpret this result as normal/abnormal. NRBC x10^3 (test code = 3229777970) <0.01 See_Comment [Automated messa ge] The system which generated this result transmitted reference range: 10*3/?L. The reference range was not used to interpret this result as normal/abnormal. GRAN MAT (NEUT) % (test code = 770-8) 53.8 % IMM GRAN % (test code = 5634857853) 0.20 % LYMPH % (test code = 736-9) 34.0 % MONO % (test code = 5905-5) 7.9 % EOS % (test code = 713-8) 2.6 % BASO % (test code = 706-2) 1.5 % GRAN MAT x10^3(ANC) (test code = 8954850919) 3.25 10*3/uL 1.88-7.09 IMM GRAN x10^3 (test code = 3649399154) <0.03 0.00-0.06 LYMPH x10^3 (test code = 731-0) 2.06 10*3/uL 1.32-3.29 MONO x10^3 (test code = 742-7) 0.48 10*3/uL 0.33-0.92 EOS x10^3 (test code = 711-2) 0.16 10*3/uL 0.03-0.39 BASO x10^3 (test code = 704-7) 0.09 10*3/uL 0.01-0.07 H Lab Interpretation (test code = 51407-4) [facility]normal [facility] [id number] 09:21:37* Test Item Value Reference Range Interpretation Comme [facility] TSH, THIRD GENERATION (test code = 2821) TEST NOT PERFORMED UIU/ML 0.400-4.100 TESTING CANNOT BE PERFORMED DUE TO AN INTERFERING SUBSTANCE. CHARGES DELETED. [id number] 09:21:37* Test Item Value Reference Range Interpretation [...] . . . . . NG/ML 58.70-214.00 [id number] 09:21:37* Test Item Value Reference Range Interpretation Comme nts ESTRADIOL (test code = 2505) TEST NOT PERFORMED PG/ML SEE BELOW TESTING CANNOT BE PERFORMED DUE TO AN INTERFERING SUBSTANCE. CHARGES DELETED. UNLESS OTHERWISE INDICATED, ALL TESTING PERFORMED [facility] [address] [place] [id number] DIRECTOR MARKET INTELLIGENCE: SADIQ VANEGAS M.D. CLIA NUMBER [id number] [facility] [place] [place]. [id number] COMPREHENSIVE METABOLIC [id number] 09:21:22* Test Item Value Reference Range Interpretation Comme nts GLUCOSE (test code = 2217) TEST NOT PERFORMED MG/DL 70-99 TESTING CANNOT BE PERFORMED DUE TO AN INTERFERING SUBSTANCE. CHARGES DELETED. BUN (test code = 2208) TEST NOT PERFORMED MG/DL 6-20 CREATININE (test code = 2213) TEST NOT PERFORMED MG/DL 0.60-1.30 eGFR (2020 CKD-EPI) (test code = 59559) TEST NOT PERFORMED ML/MIN/1.73 >60 CALC BUN/CREAT (test code = 2234) TEST NOT PERFORMED RATIO 6-28 SODIUM (test code = 2230) TEST NOT PERFORMED MEQ/L 133-146 POTASSIUM (test code = 2227) TEST NOT PERFORMED MEQ/L 3.5-5.4 CHLORIDE (test code = 2214) TEST NOT PERFORMED MEQ/L 95-107 CARBON DIOXIDE (test code = 2205) TEST NOT PERFORMED MEQ/L 19-31 CALCIUM (test code = 2208) TEST NOT PERFORMED MG/DL 8.5-10.5 PROTEIN, TOTAL (test code = 2228) TEST NOT PERFORMED G/DL 6.1-8.3 ALBUMIN (test code = 2200) TEST NOT PERFORMED G/DL 3.5-5.2 CALC GLOBULIN (test code = 2239) TEST NOT PERFORMED G/DL 1.9-3.7 CALC A/G RATIO (test code = 2233) TEST NOT PERFORMED RATIO 1.0-2.6 BILIRUBIN, TOTAL (test code = 2206) TEST NOT PERFORMED MG/DL See_Comment [Automated message] The system which generated this result transmitted reference range: <=1.2. The reference range was not used to interpret this result as normal/abnormal. ALKALINE PHOSPHATASE (test code = 2203) TEST NOT PERFORMED U/L 40-130 AST (test code = 2217) TEST NOT PERFORMED U/L 9-40 ALT (test code = 2218) TEST NOT PERFORMED U/L 5-40 TROPONIN [id number] 14:05:29* Test Item Value Reference Range Interpretation Comments TROPONIN I (test code = 3061645233) <0.012 See_Comment [Automated message] The system which [...] of biotin. Lab Interpretation (test code = 23707-4) Normal [facility] [id number] 14:02:07* Test Item Value Reference Range Interpretation Comme nts NT-proBNP (test code = 5522146639) 343 pg/mL See_Comment H [Automated message] The system which generated this result transmitted reference range: <=125. The reference range was not used to interpret this result as normal/abnormal. LUCILLE (test code = LUCILLE) Biotin has been reported to cause a negative bias, interpret results relative to patient's use of biotin. Lab Interpretation (test code = 50557-2) Abnormal [facility]COMP. METABOLIC PANEL (57274)2022-01-29 13:53:30* Test Item Value Reference Range Interpretation Comme nts NA (test code = 7888368735) 146 mmol/L 135-145 H K (test code = 3224355264) 4.2 mmol/L 3.5-5.0 CL (test code = 5075848884) 114 mmol/L 98-108 H CO2 TOTAL (test code = 6351017078) 23 mmol/L 23-31 AGAP (test code = 3343397697) 2-16 BUN (test code = 3839815249) 14 mg/dL 7-23 GLUCOSE (test code = 3540502034) 72 mg/dL 70-110 CREATININE (test code = 8211733858) 1.08 mg/dL 0.50-1.04 H TOTAL BILI (test code = 2144724008) 0.3 mg/dL 0.1-1.1 CALCIUM (test code = 9656504416) 9.1 mg/dL 8.6-10.6 T PROTEIN (test code = 9919089882) 6.1 g/dL 6.3-8.2 L ALBUMIN (test code = 4104197128) 3.8 g/dL 3.5-5.0 ALK PHOS (test code = 9184866015) 86 U/L 34-122 ALTv (test code = 1742-6) 26 U/L 5-35 AST(SGOT) (test code = 1411979706) 28 U/L 13-40 eGFR (test code = 7601427799) mL/min/1.73m2 LUCILLE (test code = LUCILLE) Association [...] imaging tests). Lab Interpretation (test code = 88747-7) Abnormal [facility] PANEL 21 + LACTIC [id number] 13:52:59* Test Item Value Reference Range Interpretation Comme nts PH (test code = 5177010649) 7.32-7.42 PCO2 WYATT (test code = 6544533498) See_Comment [Automated [employer]] The system which generated this result transmitted reference range: 41 - 51 mmHg. The reference range was not used to interpret this result as normal/abnormal. PO2 WYATT (test code = 4506428532) See_Comment L [Automated messa ge] The system which generated this result transmitted reference range: 25 - 40 mmHg. The reference range was not used to interpret this result as normal/abnormal. HCO3 WYATT (test code = 8524031751) See_Comment [Automated messa ge] The system which generated this result transmitted reference range: 24 - 28 mEq/L. The reference range was not used to interpret this result as normal/abnormal. AC VBE(BEAKER) (test code = 3384519071) mEq/L THB WYATT (test code = 3687522087) 11.4 g/dL 12.0-16.0 L %O2HB WYATT (test code = 9854395709) 21.7 % 52.0-63.0 L %COHB WYATT (test code = 1156364084) 0.3 % 0.0-1.5 %METHB WYATT (test code = 2110977917) 1.1 % 0.4-1.5 VOL%O2 WYATT (test code = 7590861412) 3.5 % 6.0-12.0 L NA (test code = 5234497028) 145 mmol/L 135-145 K+ (test code = 3861080674) 4.0 mmol/L 3.5-5.0 AC CA IONZ (test code = 2599307769) 5.00 mg/dL 4.50-5.30 GLUCOSE (test code = 4001752457) 70 mg/dL 70-110 LACTIC ACID (test code = 8271993191) 2.81 mmol/L 0.50-2.20 H Lab Interpretation (test code = 41686-1) Abnormal [facility] WITH [id number] 13:41:47* Test Item Value Reference Range Interpretation Comme nts WBC (test code = 6690-2) See_Comment [Automated messa ge] The system which generated this result transmitted reference range: 4.30 - 11.10 10*3/?L. The reference range was not used to interpret this result as normal/abnormal. RBC (test code = 789-8) See_Comment [Automated messa ge] The system which [...] g/dL 31.6-35.1 L RDW-SD (test code = 54247-7) 47.6 fL 39.0-49.9 RDW-CV (test code = 788-0) 15.9 % 12.0-15.5 H PLT (test code = 777-3) See_Comment [Automated messa ge] The system which generated this result transmitted reference range: 166 - 358 10*3/?L. The reference range was not used to interpret this result as normal/abnormal. MPV (test code = 92651-0) 10.9 fL 9.5-12.9 NRBC/100 WBC (test code = 0645739633) See_Comment [Automated [employer] ssage] The system which generated this result transmitted reference range: 0.0 - 10.0 /100 WBCs. The reference range was not used to interpret this result as normal/abnormal. NRBC x10^3 (test code = 6727043435) <0.01 See_Comment [Automated [employer] ge] The system which generated this result transmitted reference range: 10*3/?L. The reference range was not used to interpret this result as normal/abnormal. GRAN MAT (NEUT) % (test code = 770-8) 80.7 % IMM GRAN % (test code = 3475767135) 0.30 % LYMPH % (test code = 736-9) 12.4 % MONO % (test code = 5905-5) 4.9 % EOS % (test code = 713-8) 0.9 % BASO % (test code = 706-2) 0.8 % GRAN MAT x10^3(ANC) (test code = 9422000498) 6.92 10*3/uL 1.88-7.09 IMM GRAN x10^3 (test code = 0983298521) 0.03 10*3/uL 0.00-0.06 LYMPH x10^3 (test code = 731-0) 1.06 10*3/uL 1.32-3.29 L MONO x10^3 (test code = 742-7) 0.42 10*3/uL 0.33-0.92 EOS x10^3 (test code = 711-2) 0.08 10*3/uL 0.03-0.39 BASO x10^3 (test code = 704-7) 0.07 10*3/uL 0.01-0.07 Lab Interpretation (test code = 80665-0) Abnormal [facility]/AUTO DIFF WITH [id number] 05:43:21* Test Item Value Reference Range Interpretation [...] 0.00-0.10 ABS NUCLEATED RBCS (test code = 69408) 0.00 K/UL 0.00-0.11 HEMOGLOBIN [id number] 05:31:32* Test Item Value Reference Range Interpretation Comme nts HEMOGLOBIN A1c (test code = 81279) 6.4 % 4.2-5.6 H C-ARM<1 HR W IMAGES*WW*2022-01-05 15:46:44 [facility] 1970 Sex: FFluoroscopyLocation Code: [id number] HISTORY: SURGICAL PROCEDURE , Back painComments: Fluoroscopy was provided during sympathetic nerve block. Approximately fluoroscopy time was 32.6 seconds. 3 images were obtained.IMPRESSION: Fluoroscopy services provided. Please see operative report for full details.Electronically signed by: Gabriele Castaneda MD 01/05/2022 3:46 PM CDT [id number] URINE MONOCLONAL *WW*2022-01-05 11:24:00* Test Item Value Reference Range Interpretation Comme nts PREG UR (test code = PGU) NEGATIVE NEGATIVE CBC WITH [id number] 12:44:09* Test Item Value Reference Range Interpretation Comme nts WBC (test code = 6690-2) See_Comment H [Automated messa ge] The system which generated this result transmitted reference range: 4.30 - 11.10 10*3/?L. The reference range was not used to interpret this result as normal/abnormal. RBC (test code = 789-8) See_Comment L [Automated messa ge] The system [...] g/dL 31.6-35.1 L RDW-SD (test code = 66409-9) 49.5 fL 39.0-49.9 RDW-CV (test code = 788-0) 15.5 % 12.0-15.5 PLT (test code = 777-3) See_Comment H [Automated messa ge] The system which generated this result transmitted reference range: 166 - 358 10*3/?L. The reference range was not used to interpret this result as normal/abnormal. MPV (test code = 21527-2) 10.3 fL 9.5-12.9 NRBC/100 WBC (test code = 0435842066) See_Comment [Automated [employer] ssage] The system which generated this result transmitted reference range: 0.0 - 10.0 /100 WBCs. The reference range was not used to interpret this result as normal/abnormal. NRBC x10^3 (test code = 5840190940) See_Comment [Automated messa ge] The system which generated this result transmitted reference range: 10*3/?L. The reference range was not used to interpret this result as normal/abnormal. GRAN MAT (NEUT) % (test code = 770-8) 64.4 % IMM GRAN % (test code = 5141181597) 3.60 % LYMPH % (test code = 736-9) 23.5 % MONO % (test code = 5905-5) 7.3 % EOS % (test code = 713-8) 0.9 % BASO % (test code = 706-2) 0.3 % GRAN MAT x10^3(ANC) (test code = 1509292175) 7.19 10*3/uL 1.88-7.09 H IMM GRAN x10^3 (test code = 4797461095) 0.40 10*3/uL 0.00-0.06 H LYMPH x10^3 (test code = 731-0) 2.63 10*3/uL 1.32-3.29 MONO x10^3 (test code = 742-7) 0.82 10*3/uL 0.33-0.92 EOS x10^3 (test code = 711-2) 0.10 10*3/uL 0.03-0.39 BASO x10^3 (test code = 704-7) 0.03 10*3/uL 0.01-0.07 POLYCHROMASIA (test code = 03792-6) 2+ See_Comment [Automated [employer] ge] The system which generated this result transmitted reference range: 2+. The reference range was not used to interpret this result as normal/abnormal. GIANT PLATELETS (test code = 5908-9) Present See_Comment A [Automated [employer] ge] The system which generated this result transmitted reference range: (none). The reference range was not used to interpret this result as normal/abnormal. Lab Interpretation (test code = 30395-3) Abnormal [facility] [id number] 10:06:53* Test Item Value Reference Range Interpretation Comme nts NT-proBNP (test code = 8380862847) 117 pg/mL See_Comment [Automated message] The system which generated this result transmitted reference range: <=125. The reference range was not used to interpret this result as normal/abnormal. LUCILLE (test code = LUCILLE) Biotin has been reported to cause a negative bias, interpret results relative to patient's use of biotin. Lab Interpretation (test code = 37642-5) Normal [facility]COMP. METABOLIC PANEL (86050)2021-12-07 10:02:35* Test Item Value Reference Range Interpretation Comme nts NA (test code = 9384772328) 140 mmol/L 135-145 K (test code = 4726366074) 3.7 mmol/L 3.5-5.0 CL (test code = 3336208272) 104 mmol/L 98-108 CO2 TOTAL (test code = 3731642747) 31 mmol/L 23-31 AGAP (test code = 5614053073) 2-16 BUN (test code = 7834177087) 21 mg/dL 7-23 GLUCOSE (test code = 3447728695) 91 mg/dL 70-110 CREATININE (test code = 4556417535) 1.00 mg/dL 0.50-1.04 TOTAL BILI (test code = 9110717824) 0.3 mg/dL 0.1-1.1 CALCIUM (test code = 7820549997) 8.1 mg/dL 8.6-10.6 L T PROTEIN (test code = 6830094387) 5.9 g/dL 6.3-8.2 L ALBUMIN (test code = 0033492394) 3.4 g/dL 3.5-5.0 L ALK PHOS (test code = 7674698402) 87 U/L 34-122 ALTv (test code = 1742-6) 39 U/L 5-35 H AST(SGOT) (test code = 8102271344) 24 U/L 13-40 eGFR (test code = 2777508663) mL/min/1.73m2 LUCILLE (test code = LUCILLE) Association [...] imaging tests). Lab Interpretation (test code = 60699-8) Abnormal [facility]20[facility]-06 10:02:35* Test Item Value Reference Range Interpretation Comme nts MAGNESIUM (test code = 3960562202) 2.2 mg/dL 1.7-2.4 Lab Interpretation (test cod e = 06766-2) Normal [facility] SoutheastVITAMIN B12, [id number] 22:18:47* Test Item Value Reference Range Interpretation Comme nts VIT B12 (test code = 8629200826) 979 pg/mL 240-930 H LUCILLE (test code = LUCILLE) Biotin has been reported to cause a positive bias, interpret results relative to patient's use of biotin. Lab Interpretation (test code = 14091-7) Abnormal [facility] SoutheastPROCALCITONIN2022-04-05 21:47:27* Test Item Value Reference Range Interpretation Comme nts Procalcitonin (test code = 3588946104) 0.05 ng/mL <0.07 LUCILLE (test code = [...] For further information please refer to:[email or web address] Lab Interpretation (test code = 57537-0) Normal [facility]VITAMIN D, [id number] 20:41:30* Test Item Value Reference Range Interpretation Comme nts VIT D 25OH (test code = 73070-7) <13 25-80 L LUCILLE (test code = LUCILLE) Deficiency: <20 ng/mLInsufficiency: 20-24 ng/mLOptimal: 25-80 ng/mL Lab Interpretation (test code = 12995-9) Abnormal [facility] SoutheastDIFF CONSULT [id number] 20:04:06 LEUKOCYTOSIS WITH ABSOLUTE NEUTROPHILIA AND INCREASED IMMATURE GRANULOCYTES/LEFT SHIFT, CONSISTENT WITH PATIENT'S KNOWN INFECTION. NORMOCYTIC, NORMOCHROMIC ANEMIA. MILD THROMBOCYTOSIS.[facility] [id number] 18:31:30* Test Item Value Reference Range Interpretation Comme nts FREE T3 (test code = 4542633465) 2.49 pg/mL 2.77-5.27 L Lab Interpretation (test cod e = 02740-4) Abnormal [facility]-REACTIVE [id number] 17:54:11* Test Item Value Reference Range Interpretation Comme nts CRP (test code = 4365517482) 0.2 mg/dL <0.8 Lab Interpretation (test cod e = 13051-8) Normal [facility] [id number] 13:49:44* Test Item Value Reference Range Interpretation Comme nts FREE T4 (test code = 8637020650) See_Comment L [Automated messa ge] The system which generated this result transmitted reference range: 0.78 - 2.20 ng/dL:. The reference range was not used to interpret this result as normal/abnormal. Lab Interpretation (test code = 49680-6) Abnormal [facility] WITH [id number] 12:20:38* Test Item Value Reference Range Interpretation [...] 31.8 g/dL 31.6-35.1 RDW-SD (test code = 57901-1) 48.5 fL 39.0-49.9 RDW-CV (test code = 788-0) 15.3 % 12.0-15.5 PLT (test code = 777-3) See_Comment [Automated message] The system which generated this result transmitted reference range: 166 - 358 10*3/?L. The reference range was not used to interpret this result as normal/abnormal. MPV (test code = 13790-7) 10.4 fL 9.5-12.9 NRBC/100 WBC (test code = 2403165471) See_Comment [Automated message] The system which generated this result transmitted reference range: 0.0 - 10.0 /100 WBCs. The reference range was not used to interpret this result as normal/abnormal. NRBC x10^3 (test code = 0249056506) See_Comment [Automated message] The system which generated this result transmitted reference range: 10*3/?L. The reference range was not used to interpret this result as normal/abnormal. GRAN MAT (NEUT) % (test code = 770-8) 74.0 % IMM GRAN % (test code = 5376417376) 3.20 % LYMPH % (test code = 736-9) 14.7 % MONO % (test code = 5905-5) 7.7 % EOS % (test code = 713-8) 0.1 % BASO % (test code = 706-2) 0.3 % GRAN MAT x10^3(ANC) (test code = 7759408890) 11.18 10*3/uL 1.88-7.09 H IMM GRAN x10^3 (test code = 2466167977) 0.48 10*3/uL 0.00-0.06 H LYMPH x10^3 (test code = 731-0) 2.22 10*3/uL 1.32-3.29 MONO x10^3 (test code = 742-7) 1.17 10*3/uL 0.33-0.92 H EOS x10^3 (test code = 711-2) <0.03 0.03-0.39 L BASO x10^3 (test code = 704-7) 0.04 10*3/uL 0.01-0.07 Lab Interpretation (test code = 44914-9) Abnormal [facility] SoutheastFERRITIN [id number] 11:45:10* Test Item Value Reference Range Interpretation Comme nts FERRITIN (test code = 4888332233) 16.1 ng/mL 11.0-264.0 LUCILLE (test code = LUCILLE) Biotin has been reported to cause a negative bias, interpret results relative to patient's use of biotin. Lab Interpretation (test code = 78634-8) Normal [facility] SoutheastTHYROID STIMULATING [id number] 11:41:28 * Test Item Value Reference Range Interpretation Comme nts TSH (test code = 6688482809) See_Comment L [Automated messa ge] The system which generated this result transmitted reference range: 0.45 - 4.70 mIU/L. The reference range was not used to interpret this result as normal/abnormal. Lab Interpretation (test code = 60334-8) Abnormal [facility] SoutheastSEDIMENTATION [id number] 11:30:34* Test Item Value Reference Range Interpretation Comme nts ESR (test code = 4933325570) See_Comment [Automated messa ge] The system which generated this result transmitted reference range: 0 - 20 mm/HR. The reference range was not used to interpret this result as normal/abnormal. Lab Interpretation (test code = 58901-7) Normal [facility] SoutheastTROPONIN [id number] 11:30:08* Test Item Value Reference Range Interpretation Comments TROPONIN I (test code = 5285416413) 0.023 ng/mL See_Comment [Automated message] The system [...] of biotin. Lab Interpretation (test code = 77692-0) Normal [facility]. METABOLIC PANEL (40943)2021-12-06 11:28:58* Test Item Value Reference Range Interpretation Comme nts NA (test code = 9392912610) 140 mmol/L 135-145 K (test code = 5436598211) 3.1 mmol/L 3.5-5.0 L CL (test code = 7137379873) 106 mmol/L 98-108 CO2 TOTAL (test code = 3991935584) 31 mmol/L 23-31 AGAP (test code = 4115440951) 2-16 BUN (test code = 5637471054) 24 mg/dL 7-23 H GLUCOSE (test code = 7537954400) 88 mg/dL 70-110 CREATININE (test code = 7871405029) 0.95 mg/dL 0.50-1.04 TOTAL BILI (test code = 5007489314) 0.3 mg/dL 0.1-1.1 CALCIUM (test code = 2081745277) 8.4 mg/dL 8.6-10.6 L T PROTEIN (test code = 9257219324) 5.7 g/dL 6.3-8.2 L ALBUMIN (test code = 3662397911) 3.3 g/dL 3.5-5.0 L ALK PHOS (test code = 4714447610) 83 U/L 34-122 ALTv (test code = 1742-6) 44 U/L 5-35 H AST(SGOT) (test code = 4159171305) 27 U/L 13-40 eGFR (test code = 7510081432) mL/min/1.73m2 LUCILLE (test code = LUCILLE) Association [...] imaging tests). Lab Interpretation (test code = 62471-5) Abnormal [facility]N-TERMINAL [id number] 11:26:47* Test Item Value Reference Range Interpretation Comme [facility] NT-proBNP (test code = 0616063752) 442 pg/mL See_Comment H [Automated message] The system which generated this result transmitted reference range: <=125. The reference range was not used to interpret this result as normal/abnormal. LUCILLE (test code = LUCILLE) Biotin has been reported to cause a negative bias, interpret results relative to patient's use of biotin. Lab Interpretation (test code = 13961-1) Abnormal [facility] SoutheastIRO [id number] 11:19:22* Test Item Value Reference Range Interpretation Comme nts IRON (test code = 7245457105) 34 ug/dL 50-160 L TIBC (test code = 7918159149) 408 ug/dL 250-410 % FE SAT (test code = 8909770094) 8 % 20-50 L Lab Interpretation (test cod e = 09028-5) Abnormal [facility] SoutheastMAGNESIUM2022-04-05 11:18:47* Test Item Value Reference Range Interpretation Comme nts MAGNESIUM (test code = 7839622140) 1.9 mg/dL 1.7-2.4 Lab Interpretation (test cod e = 35699-6) Normal [facility] SoutheastPHOSPHORUS2022-04-05 11:18:02* Test Item Value Reference Range Interpretation Comme nts PHOSPHORUS (test code = 9065421917) 3.3 mg/dL 2.5-5.0 Lab Interpretation (test cod e = 76232-4) Normal [facility] SoutheastLIPID PANEL (51599)(TOTAL CHOLESTEROL, TRIGLYCERIDES, HDL)2021-12-06 11:09:41* Test Item Value Reference Range Interpretation Comme nts CHOL (test code = 0314725278) 208 mg/dL 120-200 H HDL (test code = 3092780482) 99 mg/dL >50 HDLC RATIO (test code = 1946942033) See_Comment [[employer]] The system which generated this result transmitted reference range: <=4.5. The reference range was not used to interpret this result as normal/abnormal. TRIG (test code = 4205908624) 172 mg/dL 30-170 H LDL CHOL (test code = 62161-1) 75 mg/dL See_Comment [[employer]] The system which generated this result transmitted reference range: <=160. The reference range was not used to interpret this result as normal/abnormal. VLDL (test code = 6678148753) 34 mg/dL 5-60 Lab Interpretation (test code = 65408-4) Abnormal [facility] SoutheastURIC [id number] 11:09:21* Test Item Value Reference Range Interpretation Comme nts URIC ACID (test code = 0839673026) 6.1 mg/dL 2.9-6.0 H Lab Interpretation (test cod e = 16466-0) Abnormal [facility] SoutheastGLYCOSYLATED HEMOGLOBIN (A1C)2021-12-06 08:48:15* Test Item Value Reference Range Interpretation Comme nts HGB A1C (test code = 4548-4) 5.7 % 4.0-5.7 LUCILLE (test code = LUCILLE) Reference RangesNormal: <5.7%Prediabetes: 5.7 - 6.4%Diabetes: > 6.5% Lab Interpretation (test code = 79513-4) Normal [facility] WITH [id number] 01:01:58* Test Item Value Reference Range Interpretation [...] 32.2 g/dL 31.6-35.1 RDW-SD (test code = 90008-7) 46.4 fL 39.0-49.9 RDW-CV (test code = 788-0) 15.2 % 12.0-15.5 PLT (test code = 777-3) See_Comment H [Automated message] The system which generated this result transmitted reference range: 166 - 358 10*3/?L. The reference range was not used to interpret this result as normal/abnormal. MPV (test code = 43023-1) 10.6 fL 9.5-12.9 NRBC/100 WBC (test code = 3941005913) See_Comment [Automated message] The system which generated this result transmitted reference range: 0.0 - 10.0 /100 WBCs. The reference range was not used to interpret this result as normal/abnormal. NRBC x10^3 (test code = 7783231804) See_Comment [Automated message] The system which generated this result transmitted reference range: 10*3/?L. The reference range was not used to interpret this result as normal/abnormal. SEG % (test code = 93692-4) 83 % 33-76 H BAND % (test code = 68592-0) 4 % 0-1 H LYMPH % (test code = 67181-7) 7 % 14-54 L MONO % (test code = 16192-1) 5 % 0-4 H EOS % (test code = 24964-7) 1 % 0-3 ANC (test code = 753-4) 19.01 10*3/uL 1.88-7.09 H TOXIC CHANGES (test code = 803-7) Present A Lab Interpretation (test code = 35587-0) Abnormal [facility] SoutheastTROPONIN [id number] 00:45:54* Test Item Value Reference Range Interpretation Comments TROPONIN I (test code = 0061825142) 0.022 ng/mL See_Comment [Automated message] The system [...] of biotin. Lab Interpretation (test code = 60538-1) Normal [facility] [id number] 00:42:51* Test Item Value Reference Range Interpretation Comme nts NT-proBNP (test code = 3121630580) 544 pg/mL See_Comment H [Automated message] The system which generated this result transmitted reference range: <=125. The reference range was not used to interpret this result as normal/abnormal. LUCILLE (test code = LUCILLE) Biotin has been reported to cause a negative bias, interpret results relative to patient's use of biotin. Lab Interpretation (test code = 29967-1) [facility] [facility] SoutheastACTIVATED PARTIAL THRMPLAS [id number] 00:36:33* Test Item Value Reference Range Interpretation Comme [facility] APTT Patient (test code = 3173-2) See_Comment L [Automated message] The system which generated this result transmitted reference range: 23 - 38 Seconds. The reference range was not used to interpret this result as normal/abnormal. LUCILLE (test code = LUCILLE) The [facility] patient population mean normal value for aPTT is 30 seconds. Lab Interpretation (test code = 87634-2) Abnormal [facility] SoutheastPROTHROMBIN TIME / [id number] 00:34:31* Test Item Value Reference Range Interpretation Comme [facility] PROTIME PATIENT (test code = 5964-2) See_Comment [Automated messa ge] The system which generated this result transmitted reference range: 12.0 - 14.7 Seconds. The reference range was not used to interpret this result as normal/abnormal. INR (test code = 6301-6) Normal INR <1.1; Warfarin Therapeutic range 2.0 to 3.0 or 2.5 to 3.5, depending upon the indications. Lab Interpretation (test code = 36108-0) Normal [facility]. METABOLIC PANEL (86095)2021-12-06 00:34:11* Test Item Value Reference Range Interpretation Comme [facility] NA (test code = 0784156879) 141 mmol/L 135-145 K (test code = 6947781129) 3.9 mmol/L 3.5-5.0 CL (test code = 9930713753) 104 mmol/L 98-108 CO2 TOTAL (test code = 9291252773) 27 mmol/L 23-31 AGAP (test code = 0526147326) 2-16 BUN (test code = 1117192778) 24 mg/dL 7-23 H GLUCOSE (test code = 0144246283) 117 mg/dL 70-110 H CREATININE (test code = 0780162266) 0.96 mg/dL 0.50-1.04 TOTAL BILI (test code = 5074994671) 0.4 mg/dL 0.1-1.1 CALCIUM (test code = 5267865802) 8.9 mg/dL 8.6-10.6 T PROTEIN (test code = 3568461374) 6.5 g/dL 6.3-8.2 ALBUMIN (test code = 6607155797) 4.0 g/dL 3.5-5.0 ALK PHOS (test code = 5725196640) 107 U/L 34-122 ALTv (test code = 1742-6) 49 U/L 5-35 H AST(SGOT) (test code = 3180865953) 44 U/L 13-40 H eGFR (test code = 7770324968) mL/min/1.73m2 LUCILLE (test code = LUCILLE) Association [...] imaging tests). Lab Interpretation (test code = 66360-1) Abnormal [facility] SoutheastPROCALCITONIN2022-04-04 02:29:14* Test Item Value Reference Range Interpretation Comme nts Procalcitonin (test code = 2854291008) 0.11 ng/mL <0.08 H LUCILLE (test code [...] For further information please refer to:[email or web address] Lab Interpretation (test code = 01927-4) Abnormal [facility] SoutheastLactic Acid Whole Varkl6800-83-72 15:26:51* Test Item Value Reference Range Interpretation Comme nts LACTIC ACID (test code = 7936485944) 2.36 mmol/L 0.50-2.20 H Lab Interpretation (test cod e = 82146-6) Abnormal [facility] SoutheastCBC with Xqomuzffzmbe9949-54-21 09:45:08* Test Item Value Reference Range Interpretation [...] 32.1 g/dL 31.6-35.1 RDW-SD (test code = 31359-7) 48.3 fL 39.0-49.9 RDW-CV (test code = 788-0) 15.2 % 12.0-15.5 PLT (test code = 777-3) See_Comment [Automated message] The system which generated this result transmitted reference range: 166 - 358 10*3/?L. The reference range was not used to interpret this result as normal/abnormal. MPV (test code = 42300-3) 10.3 fL 9.5-12.9 NRBC/100 WBC (test code = 4149913916) See_Comment [Automated message] The system which generated this result transmitted reference range: 0.0 - 10.0 /100 WBCs. The reference range was not used to interpret this result as normal/abnormal. NRBC x10^3 (test code = 6615006729) See_Comment [Automated message] The system which generated this result transmitted reference range: 10*3/?L. The reference range was not used to interpret this result as normal/abnormal. GRAN MAT (NEUT) % (test code = 770-8) 90.3 % IMM GRAN % (test code = 9811465084) 1.20 % LYMPH % (test code = 736-9) 5.8 % MONO % (test code = 5905-5) 2.6 % EOS % (test code = 713-8) 0.0 % BASO % (test code = 706-2) 0.1 % GRAN MAT x10^3(ANC) (test code = 9981965181) 19.89 10*3/uL 1.88-7.09 H IMM GRAN x10^3 (test code = 2919999541) 0.27 10*3/uL 0.00-0.06 H LYMPH x10^3 (test code = 731-0) 1.28 10*3/uL 1.32-3.29 L MONO x10^3 (test code = 742-7) 0.57 10*3/uL 0.33-0.92 EOS x10^3 (test code = 711-2) <0.03 0.03-0.39 L BASO x10^3 (test code = 704-7) 0.03 10*3/uL 0.01-0.07 POLYCHROMASIA (test code = 17027-4) 2+ See_Comment [Automated message] The system which generated this result transmitted reference range: 2+. The reference range was not used to interpret this result as normal/abnormal. TOXIC CHANGES (test code = 803-7) Present A Lab Interpretation (test code = 67734-0) Abnormal [facility] Metabolic Panel (NA, K, CL, CO2, GLUCOSE, BUN, CREATININE, CA)2021-12-04 09:38:00* Test Item Value Reference Range Interpretation Comme nts NA (test code = 3029212162) 137 mmol/L 135-145 K (test code = 9684156791) 3.7 mmol/L 3.5-5.0 CL (test code = 2751148301) 107 mmol/L 98-108 CO2 TOTAL (test code = 3191289348) 21 mmol/L 23-31 L AGAP (test code = 1788293790) 2-16 BUN (test code = 0790859329) 19 mg/dL 7-23 GLUCOSE (test code = 5594747587) 149 mg/dL 70-110 H CREATININE (test code = 1148397584) 1.00 mg/dL 0.50-1.04 CALCIUM (test code = 5298574924) 8.8 mg/dL 8.6-10.6 eGFR (test code = 5585138774) mL/min/1.73m2 LUCILLE (test code = LUCILLE) Association [...] imaging tests). Lab Interpretation (test code = 36458-6) Abnormal [facility] SoutheastLactic Acid Whole Eeoxh3419-79-79 09:20:11* Test Item Value Reference Range Interpretation Comme nts LACTIC ACID (test code = 1911697973) 3.77 mmol/L 0.50-2.20 H Lab Interpretation (test cod e = 93989-5) Abnormal [facility] SoutheastURINALYSIS2022-04-02 23:35:41* Test Item Value Reference Range Interpretation Comme nts APPEARANCE (test code = 9228505705) Clear Clear COLOR (test code = 8858865280) Yellow Yellow PH (test code = 1498168380) 4.8-8.0 SP GRAVITY (test code = 8824194935) 1.003-1.030 GLU U QUAL (test code = 3994886017) Normal Normal BLOOD (test code = 3271117940) Negative Negative Interference fro m ascorbic acid may cause false negative results. KETONES (test code = 6795237743) Negative Negative PROTEIN (test code = 2887-8) Negative Negative UROBILIN (test code = 6920386371) Normal Normal BILIRUBIN (test code = 4801746450) Negative Negative NITRITE (test code = 4445915770) Negative Negative [place] (test code = 2399827078) Negative Negative RBC/HPF (test code = 4947719632) See_Comment [Automated [employer]] The system which generated this result transmitted reference range: 0 - 3 HPF. The reference range was not used to interpret this result as normal/abnormal. WBC/HPF (test code = 3317873974) See_Comment [Automated messa ge] The system which generated this result transmitted reference range: 0 - 5 HPF. The reference range was not used to interpret this result as normal/abnormal. BACTERIA (test code = 7158798394) Negative Negative SQ EPITH (test code = 0220729209) See_Comment H [Automated messa ge] The system which generated this result transmitted reference range: <=2 HPF. The reference range was not used to interpret this result as normal/abnormal. Lab Interpretation (test code = 46997-9) Abnormal [facility] WITH [id number] 21:54:52* Test Item Value Reference Range Interpretation [...] 31.6 g/dL 31.6-35.1 RDW-SD (test code = 20043-3) 48.1 fL 39.0-49.9 RDW-CV (test code = 788-0) 15.3 % 12.0-15.5 PLT (test code = 777-3) See_Comment [Automated message] The system which generated this result transmitted reference range: 166 - 358 10*3/?L. The reference range was not used to interpret this result as normal/abnormal. MPV (test code = 15148-6) 10.1 fL 9.5-12.9 NRBC/100 WBC (test code = 6787016071) See_Comment [Automated message] The system which generated this result transmitted reference range: 0.0 - 10.0 /100 WBCs. The reference range was not used to interpret this result as normal/abnormal. NRBC x10^3 (test code = 1082972501) See_Comment [Automated message] The system which generated this result transmitted reference range: 10*3/?L. The reference range was not used to interpret this result as normal/abnormal. GRAN MAT (NEUT) % (test code = 770-8) 90.9 % IMM GRAN % (test code = 6210734655) 0.80 % LYMPH % (test code = 736-9) 6.4 % MONO % (test code = 5905-5) 1.8 % EOS % (test code = 713-8) 0.0 % BASO % (test code = 706-2) 0.1 % GRAN MAT x10^3(ANC) (test code = 6614655674) 17.07 10*3/uL 1.88-7.09 H IMM GRAN x10^3 (test code = 8274761069) 0.15 10*3/uL 0.00-0.06 H LYMPH x10^3 (test code = 731-0) 1.20 10*3/uL 1.32-3.29 L MONO x10^3 (test code = 742-7) 0.34 10*3/uL 0.33-0.92 EOS x10^3 (test code = 711-2) <0.03 0.03-0.39 L BASO x10^3 (test code = 704-7) <0.03 0.01-0.07 TOXIC CHANGES (test code = 803-7) Present A Lab Interpretation (test code = 49935-0) Abnormal [facility] SoutheastN-TERMINAL DNP-VUO9307-16-02 21:47:46* Test Item Value Reference Range Interpretation Comme nts NT-proBNP (test code = 2735703980) 662 pg/mL See_Comment H [Automated message] The system which generated this result transmitted reference range: <=125. The reference range was not used to interpret this result as normal/abnormal. LUCILLE (test code = LUCILLE) Biotin has been reported to cause a negative bias, interpret results relative to patient's use of biotin. Lab Interpretation (test code = 03171-8) Abnormal [facility] SoutheastTROPONIN [id number] 21:47:46* Test Item Value Reference Range Interpretation Comments TROPONIN I (test code = 8154408618) 0.007 ng/mL See_Comment [Automated message] The system [...] of biotin. Lab Interpretation (test code = 54875-7) Normal [facility] SoutheastAMYLASE2022-04-02 21:36:08* Test Item Value Reference Range Interpretation Comme nts KIERA (test code = 1860987478) 66 U/L 35-110 Lab Interpretation (test cod e = 99098-0) Normal [facility] SoutheastLIPASE2022-04-02 21:36:08* Test Item Value Reference Range Interpretation Comme nts LIPASE (test code = 0126853599) 83 U/L 0-220 Lab Interpretation (test cod e = 70358-6) Normal [facility] SoutheastCOMP. METABOLIC PANEL (36728)2021-12-03 21:36:08* Test Item Value Reference Range Interpretation Comme nts NA (test code = 9191223461) 137 mmol/L 135-145 K (test code = 7463885782) 4.5 mmol/L 3.5-5.0 CL (test code = 8156945663) 107 mmol/L 98-108 CO2 TOTAL (test code = 4365627436) 20 mmol/L 23-31 L AGAP (test code = 0419373625) 2-16 BUN (test code = 8210955207) 20 mg/dL 7-23 GLUCOSE (test code = 4874557990) 140 mg/dL 70-110 H CREATININE (test code = 7791356295) 0.97 mg/dL 0.50-1.04 TOTAL BILI (test code = 5920579148) 0.3 mg/dL 0.1-1.1 CALCIUM (test code = 1656910673) 8.9 mg/dL 8.6-10.6 T PROTEIN (test code = 0231308161) 7.1 g/dL 6.3-8.2 ALBUMIN (test code = 0333682839) 4.3 g/dL 3.5-5.0 ALK PHOS (test code = 0876525862) 97 U/L 34-122 ALTv (test code = 1742-6) 56 U/L 5-35 H AST(SGOT) (test code = 0109061475) 38 U/L 13-40 eGFR (test code = 7842724996) mL/min/1.73m2 LUCILLE (test code = LUCILLE) Association [...] imaging tests). Lab Interpretation (test code = 54788-6) Abnormal [facility] SoutheastAC ABG + LACTIC [id number] 21:21:29* Test Item Value Reference Range Interpretation Comme nts PH (test code = 2) 7.35-7.45 PCO2 (test code = 3862424191) See_Comment L [Automated messa ge] The system which generated this result transmitted reference range: 35 - 45 mmHg. The reference range was not used to interpret this result as normal/abnormal. PO2 (test code = 8669146738) See_Comment [Automated messa ge] The system which generated this result transmitted reference range: 80 - 100 mmHg. The reference range was not used to interpret this result as normal/abnormal. HCO3 (test code = 0968679059) See_Comment [Automated messa ge] The system which generated this result transmitted reference range: 22 - 26 mEq/L. The reference range was not used to interpret this result as normal/abnormal. BE (test code = 0929063930) See_Comment [Automated messa ge] The system which generated this result transmitted reference range: -3.0 - 3.0 mEq/L. The reference range was not used to interpret this result as normal/abnormal. LACTIC ACID (test code = 2652006692) 2.96 mmol/L 0.50-2.20 H Lab Interpretation (test code = 81645-0) Abnormal [facility] SoutheastBasic Metabolic Panel (NA, K, CL, CO2, GLUCOSE, BUN, CREATININE, CA)2021-11-10 09:40:55* Test Item Value Reference Range Interpretation Comme nts NA (test code = 5215226916) 138 mmol/L 135-145 K (test code = 3081623945) 3.4 mmol/L 3.5-5.0 L CL (test code = 3606611218) 107 mmol/L 98-108 CO2 TOTAL (test code = 8109914464) 25 mmol/L 23-31 AGAP (test code = 4063286192) 2-16 BUN (test code = 4915259193) 15 mg/dL 7-23 GLUCOSE (test code = 5855133239) 110 mg/dL 70-110 CREATININE (test code = 7646967735) 0.81 mg/dL 0.50-1.04 CALCIUM (test code = 7206179545) 7.8 mg/dL 8.6-10.6 L eGFR (test code = 3683897026) mL/min/1.73m2 LUCILLE (test code = LUCILLE) Association [...] imaging tests). Lab Interpretation (test code = 27660-6) Abnormal [facility] with Eijesxwbkeqc5513-05-40 09:25:30* Test Item Value Reference Range Interpretation Comme nts WBC (test code = 6690-2) See_Comment H [Automated [employer]] The system which generated this result transmitted reference range: 4.30 - 11.10 10*3/?L. The reference range was not used to interpret this result as normal/abnormal. RBC (test code = 789-8) See_Comment L [Automated [employer] ge] The system which generated this result [...] g/dL 31.6-35.1 L RDW-SD (test code = 58889-0) 57.2 fL 39.0-49.9 H RDW-CV (test code = 788-0) 17.0 % 12.0-15.5 H PLT (test code = 777-3) See_Comment [Automated [employer] ge] The system which generated this result transmitted reference range: 166 - 358 10*3/?L. The reference range was not used to interpret this result as normal/abnormal. MPV (test code = 98360-5) 9.2 fL 9.5-12.9 L NRBC/100 WBC (test code = 3579480758) See_Comment [Automated [employer]] The system which generated this result transmitted reference range: 0.0 - 10.0 /100 WBCs. The reference range was not used to interpret this result as normal/abnormal. NRBC x10^3 (test code = 3180598458) See_Comment [Automated [employer] ge] The system which generated this result transmitted reference range: 10*3/?L. The reference range was not used to interpret this result as normal/abnormal. GRAN MAT (NEUT) % (test code = 770-8) 72.2 % IMM GRAN % (test code = 0387933174) 1.30 % LYMPH % (test code = 736-9) 18.9 % MONO % (test code = 5905-5) 6.3 % EOS % (test code = 713-8) 1.2 % BASO % (test code = 706-2) 0.1 % GRAN MAT x10^3(ANC) (test code = 8405435317) 8.06 10*3/uL 1.88-7.09 H IMM GRAN x10^3 (test code = 4025889419) 0.14 10*3/uL 0.00-0.06 H LYMPH x10^3 (test code = 731-0) 2.10 10*3/uL 1.32-3.29 MONO x10^3 (test code = 742-7) 0.70 10*3/uL 0.33-0.92 EOS x10^3 (test code = 711-2) 0.13 10*3/uL 0.03-0.39 BASO x10^3 (test code = 704-7) <0.03 0.01-0.07 Lab Interpretation (test code = 94794-1) Abnormal [facility] SoutheastLactic Acid Whole Tezmc9249-52-42 09:22:39* Test Item Value Reference Range Interpretation Comme [facility] LACTIC ACID (test code = 7618603480) 3.32 mmol/L 0.50-2.20 H Lab Interpretation (test cod e = 13015-5) Abnormal [facility] SoutheastACTIVATED PARTIAL THRMPLAS DTA9063-86-67 02:13:42* Test Item Value Reference Range Interpretation Comme [facility] APTT Patient (test code = 3173-2) See_Comment L [Automated [employer]] The system which generated this result transmitted reference range: 26 - 36 Seconds. The reference range was not used to interpret this result as normal/abnormal. Lab Interpretation (test code = 48952-6) Abnormal [facility] SoutheastPROTHROMBIN TIME / [id number] 02:13:42* Test Item Value Reference Range Interpretation Comme [facility] PROTIME PATIENT (test code = 5964-2) See_Comment [Automated [employer]] The system which generated this result transmitted reference range: 10.1 - 12.6 Seconds. The reference range was not used to interpret this result as normal/abnormal. INR (test code = 6301-6) Normal INR <1.1; Warfarin Therapeutic range 2.0 to 3.0 or 2.5 to 3.5, depending upon the indications. Lab Interpretation (test code = 70963-9) Normal [facility] SoutheastD-OVFIB5788-26-70 02:13:42* Test Item Value Reference Range Interpretation Comments D-DIMER (test code = 9764273951) See_Comment H [Automated message] The system which [...] a diagnosis. Lab Interpretation (test code = 91259-8) Abnormal [facility] SoutheastCOMP. METABOLIC PANEL (73009)2021-11-10 01:57:17* Test Item Value Reference Range Interpretation Comme nts NA (test code = 1933434199) 139 mmol/L 135-145 K (test code = 2262296479) 3.9 mmol/L 3.5-5.0 CL (test code = 6686174295) 106 mmol/L 98-108 CO2 TOTAL (test code = 4718309174) 27 mmol/L 23-31 AGAP (test code = 3718600425) 2-16 BUN (test code = 9466043976) 17 mg/dL 7-23 GLUCOSE (test code = 7944296636) 135 mg/dL 70-110 H CREATININE (test code = 1408187754) 0.72 mg/dL 0.50-1.04 TOTAL BILI (test code = 7328756016) 0.3 mg/dL 0.1-1.1 CALCIUM (test code = 6204034513) 8.1 mg/dL 8.6-10.6 L T PROTEIN (test code = 2578655840) 5.6 g/dL 6.3-8.2 L ALBUMIN (test code = 8684160068) 3.3 g/dL 3.5-5.0 L ALK PHOS (test code = 2875355748) 126 U/L 34-122 H ALTv (test code = 1742-6) 47 U/L 5-35 H AST(SGOT) (test code = 2887641125) 27 U/L 13-40 eGFR (test code = 8184663936) mL/min/1.73m2 LUCILLE (test code = LUCILLE) Association [...] imaging tests). Lab Interpretation (test code = 05799-8) Abnormal [facility] SoutheastAC ABG + LACTIC BDOT2709-16-66 01:51:44* Test Item Value Reference Range Interpretation Comme nts PH (test code = 2) 7.35-7.45 PCO2 (test code = 0706691319) See_Comment [Automated [employer]] The system which generated this result transmitted reference range: 35 - 45 mmHg. The reference range was not used to interpret this result as normal/abnormal. PO2 (test code = 9082187827) See_Comment L [Automated messa ge] The system which generated this result transmitted reference range: 80 - 100 mmHg. The reference range was not used to interpret this result as normal/abnormal. HCO3 (test code = 2360179731) See_Comment [Automated messa ge] The system which generated this result transmitted reference range: 22 - 26 mEq/L. The reference range was not used to interpret this result as normal/abnormal. BE (test code = 3493002404) See_Comment [Automated messa ge] The system which generated this result transmitted reference range: -3.0 - 3.0 mEq/L. The reference range was not used to interpret this result as normal/abnormal. LACTIC ACID (test code = 5749434083) 4.25 mmol/L 0.50-2.20 H QUES Lab Interpretation (test code = 46313-4) Abnormal [facility] WITH [id number] 01:50:58* Test Item Value Reference Range Interpretation [...] g/dL 31.6-35.1 L RDW-SD (test code = 53243-1) 55.7 fL 39.0-49.9 H RDW-CV (test code = 788-0) 16.8 % 12.0-15.5 H PLT (test code = 777-3) See_Comment [Automated message] The system which generated this result transmitted reference range: 166 - 358 10*3/?L. The reference range was not used to interpret this result as normal/abnormal. MPV (test code = 73817-4) 9.5 fL 9.5-12.9 NRBC/100 WBC (test code = 4462234398) See_Comment [Automated message] The system which generated this result transmitted reference range: 0.0 - 10.0 /100 WBCs. The reference range was not used to interpret this result as normal/abnormal. NRBC x10^3 (test code = 0385208140) <0.01 See_Comment [Automated message] The system which generated this result transmitted reference range: 10*3/?L. The reference range was not used to interpret this result as normal/abnormal. GRAN MAT (NEUT) % (test code = 770-8) 84.7 % IMM GRAN % (test code = 3258376338) 0.80 % LYMPH % (test code = 736-9) 10.9 % MONO % (test code = 5905-5) 3.4 % EOS % (test code = 713-8) 0.1 % BASO % (test code = 706-2) 0.1 % GRAN MAT x10^3(ANC) (test code = 6630524070) 11.84 10*3/uL 1.88-7.09 H IMM GRAN x10^3 (test code = 1484382143) 0.11 10*3/uL 0.00-0.06 H LYMPH x10^3 (test code = 731-0) 1.52 10*3/uL 1.32-3.29 MONO x10^3 (test code = 742-7) 0.47 10*3/uL 0.33-0.92 EOS x10^3 (test code = 711-2) <0.03 0.03-0.39 L BASO x10^3 (test code = 704-7) <0.03 0.01-0.07 Lab Interpretation (test code = 10458-7) Abnormal [facility] SoutheastCYT GDC4700-01-71 21:38:57* Test Item Value Reference Range Interpretation Comme nts Case Report (test code = 3799344567) Non-Gynecologic Cytology ?Case: [id number] ?Authorizing Provider: ?Anaya Kline MD ? ? Collected: ? 10/21/2021 1249 ?Ordering Location: ? ? [facility] Health ?Received: ?10/21/2021 1257 ? Medicine/Surgery [facility] ?Pathologist: ? Glenna Alejandra MD ? Specimen: ? ?LUNG, LEFT UPPER LOBE, BRONCHOALVEOLAR LAVAGE ? Final Diagnosis (test code = 8476231551) f4srpMQnEPVhj9ihQJHutXMr ZzEwMzNcZnRuYmpcdWMxIHtc cnRmMVxlcGljOTYwMVxhbnNp MPXweZReQ4EcaiupVPisHK7i GY3afXknwJPwdEMmVKDxVvNr e1sjq161fPIzn8ewZZAOxsig gQd1nNplR54ku6I1TclfL8kn ZWQwXGdyZWVuMFxibHVlMDt9 XHBhcGVydzEyMjQwXHBhcGVy lRL7OQHhLY7jemlzVVgrUNiv GTEjxuD4AXEohTIcI6PvASRq PV7ahrzsZVP1UTptXEMoHAS1 YkVgZBGja4Nszsh2AkBzmFHm ZFxwbGFpblxmczIwXHBhclxi IEExLiAgTFVORywgTEVGVCBV OLWIBlTYG9PAIjONJt8BU9dD OMwTQB0BJYLmYGGRIItSKrpo QXXdGzHwVPQiEurdNeReAj9r WWYJNRtINQ2PWHASQTbKIAaZ SN5ACRJYCCSbVKidREZsW7OQ KQYSDU9IYsSrZNRrzrrgZnNa zKHlkCpaloZaDMugm8YrE6Os MjAwMFxhbnNpXGRlZmxhbmcx BWGsRRW4tgNaJKVnAFgaVTEn GKtlHc0lxGOifKsdGyLeIFDu q7ymdyLKNTchTpLqO733HQEd BIbfn7fnb1JhDRCazWTtn3B7 PDIVkouyxCp3m5gaQaPcYrG0 lIOvPDpvM9mwkwIylNElY5Mb aHNveNv0oMmjR40qv0D2Nrot L6gjCBVnIAUzX9IeHW6zPCIv Def9ZKQ6SUV3TGIoWPYcK9Ms KG3rOLSfnULoEWd7t0rmdKgj UYRsKQV4j1wkWFmmjyE1PM7p yp0teKs8y0hymmTsXTGyQRAi iGVLAOMiK3AusBveBm7pdJb6 nZheNeqnAZC7Fjy6QK8mry08 hby5cFxjHQMkboamPgV4TXad VHXefysjYZl8RSwzQGHszNR7 TUSzwXUeC3TlRKDsKL7mpfi7 FUE9DWmyCXPcLsI5DEFnxXMp BIBkvWycBQbtk185MVW2WeOd QO1nT8Yql1J1xU8kkRPhEYEk aXTlNlBvQUWcps1pvRHhCTgd i6VwHHN4pwM1xEZnhPWiODPm GC32Zbzeo8UtHyruWHL5KZYk ilNnd5Hdj7nbUkIlilQhQ6ky L1UqAHVdNUKeVXXhUcLsizTh a3Dxb6LgeUQqdLy9l0ihIEMm DCZwkAtdj4evSAG6HTFiE4M7 eWFkt4gtCHfoZZPthEF4xhN0 HXQesYCeI3LkzJ9cIBJeGZ7z tyb3b5ahPNL9OKslLIWjZhM2 hjA0CXGblJWfCAQsuZejKUuc s228MMO9AqFfYVIgo7EiY5Ac rDhzV08zlDpqM96mRSSovPpa kV2ogLizmI3uQqJhFuAvWEyp bFxwbGFpblxmMVxmczIwXGxh cwazAREmQFvhE3tsVyOgXRNh oYraGSkko8EgPIMgEADgTsdi czIwXHBhciBJIGhhdmUgcGVy c25xRYqdzDKsLFJaSRrmSAJj hElhy1MnD6dvEP0wQ8GulWOh heKohtZjNRinFBRuq6w8uHGb nPiab6UymXEaZJ90kkIbVKSa XPW4EPVll3awJI92pahkWrLk rI95xoIwpyAlKFVnv2quX4cv uBTch7Kjx0BrprLsZRmsv0Oa VS9uzMVpveuadCY4IYUskPVt pqXeezC9qXoxUGMddC7zqH2q gIupwZ6dYnXjTwImVDmiVZ9j WMXrH6pxdQVrTIAnWDXeV9oj EyRgwW6naJcuVrquszG7OYAj cn19 Final Diagnosis Comment (test code = [id number]) z1aggXLjFFZhuSP1KjMtSDWq t7djf9ZufHCzgTTqDNpyjJSi xiWcyy18rWE5bZ32KX9sOVVr EeN1QECdfpH0Iof4WZLvVKMi uLKdE368x9sqn1yfssCvjUZ7 YAIrEVObU4OkNA1qCUXehLIs O63yePKdEWL4XDNwXTMisPLn MKZqVAZ3BNGzhJPyS6sdRSJb OZ3wnqsuWDkrKMpsMRWlrRV1 NRHdbSIqM4AtDZQjUMatJRZu hrh0QoEwKy4owGWkkXchFXam MVVyZBQdSPzzZVEjFxHdE83w LWBpQSBfo4fxlB2doVx8DXKb j43seC1hBWCpjOexvIyzjFBl ABkwchRiufRhGyK2TTRogjFd oNMnLA3hH4OrsJgdG3KxToGP PRUuWUvqj4BqHM7uZDE4hFUo VdDqhoI9vU1stWKggtFvAYIs VmFjW4LqBJ2fTY7miVgftwDy dCBjZWxscyBpZGVudGlmaWVk GwauHGPnJ6ItMVMowo7= Clinical Information (test code = [id number]) 1. Pneumonia / covid / SARS Gross Description (test code = [id number]) d1gcaOVzWXZsdEF6BaNjDQUi i6jtl5ZfwYTmoSQiACtqfGNb qxAlvl58pAM9aH96LV3cDSHu UcZ5CGXgtlT4Goh7UDGxWUPn aBEpA159v5bnv2ulfnZiiOX8 CIRaMDEvN3DaYY6nKQScsBGj D85cxKQiHRS2NCExQLZmtPKb DIRvXFX9GRIttJHxG2htFIGh CI5mbltaUAptYRepNOQfeNW4 DAZezJHbQ5CsRAQkTZvoDUYu szp1QgIeQh1dzZYqvVoxDQbr NZAti4zgMIQdsDRnLYG5SBkr rVXlXRNiHKBqDZv3KTPcXQan dALeBA8miJxhDaicuYnif9My dCBcXGlkIDUxMDAyIFxcZGIg W9YDQKWpKsXiAcz1CDLiHBp2 JFt3UL5UWiFzHOWrTdv2RJNw MiMvYMk4PGvjFD0GJEU0CpV9 DIZbUoszHFXdYhYlVSs2LVPv XFxmbCBcXGYgQXJpYWwgXFxm dcIhREGuYI3awCqgtETjuwbk czIwXHBhclxmczIyXHBhciBB WT6rEFqNXciuKQmOAbReOZFZ TIAnLK1QPUlaKnVLNyMTV2HZ VkVPTEFSIExBVkFHRVxwYXJc VqGeMKwrPpKjCmVgEGh9RKQp DaMzb3ueqAOlN1SqlwNdHYSk sMDuUDN5JILjI1Xcf5BhG3tz RITsWlk1wHDhfkTuNWx7DXMd AkDqa4hvuVSiAYAoMBLmigLz JEJif1xxZIRuYFsTmLIqm8Ti maIzilRvEGYqsPtamaB2THDs Aa1dPW8rj0WurBXtthAsOWBX BNGuuffqw3uar3Isd3IzhG1y ZClcZnMyMlxjZjAgIHtcZXBp R0IiO3LzkhH9i2mojNxsb1Sh yZIsCB7dbGLsrE== Disclaimer (test code = 2019408660) w1nwmMClWAYts7tqRMNmaIDm ZzEwMzNcZnRuYmpcdWMxIHtc ugKgBAlyg3CxS8WaDgOsKZhw bnNpXGRlZmxhbmcxMDMzXGZ0 bgMnRPZpPAunXJMoXSoqCi7l vXOxrKcsGzCaBCVxt0fxmkDQ QNoiJdJvW031VLUyIIduw9ov i9XhYDSouYQke9Q2OBRLsqbh jNn4hTurU61kt0T7EdbhS5wv NGJnIHFjM7HnAJ9sGVNkHwv5 PQW3AMO0GZRePACpO3VdUT9t WBCwuHMmLOm9i8cvgGvsSUQy OOL5h0vvHTqrthCjTC6pxu5z yUy9v3rewvOkWGXkHVFwcPNP JXMnU8WxoIbpGe0aaLt4gEau SitkLJF5Lhm8FE4tre40ecp1 pRdePWDsptskTzU4ASkdEZLg kjzeCRc6YTxqVLPooIC8RHMw lSNnN3ZjQHAmVD0lwji6DEF5 ONxvLCIzPnZ9DWXlmAOpSZGm aYnyBNnwl121MGB3IfVsZV0t P6Zyq2X0iV8tbVPuQPGtrRVb YxTyFXAgei5baLEnMZohl6Zk WSN2noQ8uHQlyNVtUPNiTI91 Fjzat4ZuDyuti1HiY86wzIG3 QLail3buXS3tJrF7jtJqMIvn j5rwkN9lPmM6TBfpIX8sOP8n AOFqzW6tmfusXAYiHqHvfezh ARShfAfugdJtIj5chPaiSUM1 IBijV2lubE6rMbO4UOuiN4cq pY4rKHv7YShviME3GEJllT4l WB0bybgwc8bnBTrzYJktPKJq caW6njO0GVMppVVnH2XbmY0s JNFrEO7tlqnab6luASM5BNpn VWVrTUD8XsIgIKUct3Rvbtr9 ZiDlf9OjhTNzKUaaN53tj442 KFIvujZvV3hsjXMrcqkkiHAw zzcpTVcmfwQ8NZIevyMfw6Xh LJPwBQX4VAegZNwzjUEvOWKo dOsxm1ruM2YoiRUcPGNbOMjx XGYxXGZzMjBcbGFuZzEwMzNc aGljaFxmMVxkYmNoXGYxXGxv Y4vnUxPkS9RmSWYzLpIlwGWc W5mqNYqkfyUdJWQljoXlrLF9 NFvqB8y8OTXdiyHrtJx2wjMn LxFhXKFfDRY5MXcjbVSqQFZf q8OuazdumSMiVj9ifGPrBCWf lL0bMPHoJPEmZIonYW0oaHk5 OUGEiPZekXHoFoPICEWsBS37 rwUrZUECqoxur6C7LLuuDULm g0NprABjO3hqh2AwBKQus04v AI7kp5Y4q2atIDS9UK1qb7Sx ILLzxXCvkAOcIPCpo5Exiuzk x9PyWAEyqeHpy4ZiJFLqurPp pGTiYYAuerTrfs0psjYfMYRd HPWyN3GdojmxeSdzptTwMUTa ro4dggFzRXW0WDKZXKRqMOSf q0MweY3qfMAZHVT3nZEtcd1p geBPlJOgKCUjiu16URTrSS0h D9bnSALhWNSnsdZqcPIah2Pv EMNliCI7cSGkNZ5ZIcZBo47y IGFuZCBEcnVnIEFkbWluaXN0 iqL3pD9nUNeBUOPyIfb+IFRo HGALPXQeVM9vdqAya8HvgfVg kYvsJQDkkBAgj6DefQWuz3Jl cYvss6EckTXlkNQpRE0cYFPf clxwYXIgVVRNQiBMYWJvcmF0 j7InFXMvMFWiCWO2qIcwrxk0 YIAjkG1oMBChQ6ayhiovDIod GYWew3GbrH1zzUHOuNBti4Ee kNHehQWCyWTeNU0qwqIwBYhB CRaLLWG1vzDeDKVbf4KwPPkt G9bgD82tmAglxMb9oPI2IZG4 xY3rWla+IFxwYXJccGFyIEFw dMCboOFhHCPokHrricBrF0Rx uiGkqO5amAIygnJlEK9uRU9v E4U9cKFmNVEpatYlg1vpQQxx dmUgYmVlbiByZXZpZXdlZCBm o1BoDWbeRHL0SRxrnmJdjcPz dWRpbmcgSCZFLCBTcGVjaWFs FNK2ONwymaLwfxNhJH8skU8d eKnamK8miGMsnSA1dsmdAOQz UBFtqPxtOSPaXD5pzJAsSLDq rcCSlIrijNRtcW8rT0JhZDFj UEHjrf5cEZEzuP3qNKiju0Eq gpntZSOiBCBjWQMrdoSitq3f LHVhpEFNNW0JTJvhaPYzz3Kf fkRrF6rJYXR6SWRrMqMbIjsz GTMnwRDrlJDxUFDoyp97QUCc cP3ilYacSXYibC9cxQ2biYpu hR4tZaJlBzAyWWciKV4fAAOp N7wcaSNoMKVlSMTtM4xoJyWy cT3daRsmIBlwSeMkThHiPLtq YXJ9fQ== Embedded Images (test code = 5893710243) [facility] [id number] 20:07:20* Test Item Value Reference Range Interpretation Comme nts SHIRA (test code = 7329702776) Negative Negative LUCILLE (test code = LUCILLE) [...] reported separately. Lab Interpretation (test code = 85587-4) Normal [facility] METABOLIC PANEL (NA, K, CL, CO2, GLUCOSE, BUN, CREATININE, CA)2021-10-24 13:05:02* Test Item Value Reference Range Interpretation Comme nts NA (test code = 3317873888) 134 mmol/L 135-145 L K (test code = 4537234777) 4.5 mmol/L 3.5-5.0 CL (test code = 5527604362) 99 mmol/L 98-108 CO2 TOTAL (test code = 0511704895) 30 mmol/L 23-31 AGAP (test code = 2822651487) 2-16 BUN (test code = 8086608307) 23 mg/dL 7-23 GLUCOSE (test code = 9074381274) 118 mg/dL 70-110 H CREATININE (test code = 4852055451) 0.71 mg/dL 0.50-1.04 CALCIUM (test code = 6013843281) 8.2 mg/dL 8.6-10.6 L eGFR (test code = 2959491962) mL/min/1.73m2 LUCILLE (test code = LUCILLE) Association [...] imaging tests). Lab Interpretation (test code = 55125-4) Abnormal [facility] METABOLIC PANEL (NA, K, CL, CO2, GLUCOSE, BUN, CREATININE, CA)2021-10-24 13:05:02* Test Item Value Reference Range Interpretation Comme nts NA (test code = 3182458298) 134 mmol/L 135-145 L K (test code = 9385117658) 4.5 mmol/L 3.5-5.0 CL (test code = 1401449681) 99 mmol/L 98-108 CO2 TOTAL (test code = 1153404497) 30 mmol/L 23-31 AGAP (test code = 9868880304) 2-16 BUN (test code = 8428620015) 23 mg/dL 7-23 GLUCOSE (test code = 4726139357) 118 mg/dL 70-110 H CREATININE (test code = 4381674351) 0.71 mg/dL 0.50-1.04 CALCIUM (test code = 5632674150) 8.2 mg/dL 8.6-10.6 L eGFR (test code = 8694854399) mL/min/1.73m2 LUCILLE (test code = LUCILLE) Association [...] imaging tests). Lab Interpretation (test code = 10613-5) Abnormal [facility] WITHOUT [id number] 12:51:39* Test Item Value Reference Range Interpretation [...] result as normal/abnormal. MPV (test code = 95077-8) 10.1 fL 9.5-12.9 RDW-CV (test code = 788-0) 14.2 % 12.0-15.5 RDW-SD (test code = 04343-2) 43.8 fL 39.0-49.9 NRBC x10^3 (test code = 2825630526) See_Comment [Automated messa ge] The system which generated this result transmitted reference range: 10*3/?L. The reference range was not used to interpret this result as normal/abnormal. NRBC/100 WBC (test code = 7204721828) See_Comment [Automated messa ge] The system which generated this result transmitted reference range: 0.0 - 10.0 /100 WBCs. The reference range was not used to interpret this result as normal/abnormal. IPF % (test code = 2554327308) Lab Interpretation (test code = 74314-4) Abnormal [facility] WITHOUT [id number] 12:51:39* Test Item Value Reference Range Interpretation [...] result as normal/abnormal. MPV (test code = 88822-5) 10.1 fL 9.5-12.9 RDW-CV (test code = 788-0) 14.2 % 12.0-15.5 RDW-SD (test code = 47205-2) 43.8 fL 39.0-49.9 NRBC x10^3 (test code = 1167405453) See_Comment [Automated Mistic[place] ge] The system which generated this result transmitted reference range: 10*3/?L. The reference range was not used to interpret this result as normal/abnormal. NRBC/100 WBC (test code = 1689590941) See_Comment [Automated Misticoma ge] The system which generated this result transmitted reference range: 0.0 - 10.0 /100 WBCs. The reference range was not used to interpret this result as normal/abnormal. IPF % (test code = 9815985997) Lab Interpretation (test code = 73818-4) Abnormal [facility] TUBERCULOSIS COMPLEX PCR 2021-10-23 16:23:29* Test Item Value Reference Range Interpretation Comme nts Mycobacterium tuberculosis DNA (test code = 26313-8) Negative Negative LUCILLE (test code = LUCILLE) Method performance specifications have not been established for specimens other than SPUTUM. Results for other tested specimen types should be interpreted based on clinical context. Lab Interpretation (test code = 57586-1) Normal [facility]MYCOBACTER[facility] TUBERCULOSIS COMPLEX PCR 2021-10-23 16:23:29* Test Item Value Reference Range Interpretation Comme nts Mycobacterium tuberculosis DNA (test code = 75662-9) Negative Negative LUCILLE (test code = LUCILLE) Method performance specifications have not been established for specimens other than SPUTUM. Results for other tested specimen types should be interpreted based on clinical context. Lab Interpretation (test code = 33230-9) Normal [facility]RESPIRATORY PANEL BY [id number] 20:36:40* Test Item Value Reference Range Interpretation Comme nts Adenovirus (test code = 46696-5) Negative Negative Coronavirus HKU1 (test code = 87723-3) Negative Negative Coronavirus NL63 (test code = 20885-8) Negative Negative Coronavirus 229E (test code = 57552-2) Negative Negative Coronavirus OC43 (test code = 23592-5) Negative Negative Human Metapneumovirus (test code = 51074-8) Negative Negative Human Rhinovirus/Enterovirus (test code = 47542-1) Negative Negative Influenza A (test code = 13292-0) Negative Negative Influenza B (test code = 11743-7) Negative Negative Parainfluenza Virus 1 (test code = 49017-9) Negative Negative Parainfluenza Virus 2 (test code = 60288-1) Negative Negative Parainfluenza Virus 3 (test code = 43245-1) Negative Negative Parainfluenza Virus 4 (test code = 52711-0) Negative Negative Respiratory Syncytial Virus (test code = 26041-1) Negative Negative Bordetella parapertussis (test code = 11030-9) Negative Negative Bordetella pertussis (test code = 69010-1) Negative Negative Chlamydia pneumoniae (test code = 06255-5) Negative Negative Mycoplasma pneumoniae (test code = 93302-8) Negative Negative LUCILLE (test code = LUCILLE) Negative:A negativ e result does not rule-out infection. ?This assay does not test for all potential infectious agents. ? Positive:A positive test result does not necessarily indicate the presence of viable organism. ? Lab Interpretation (test code = 15353-5) Normal [facility]IR[facility] PANEL BY [id number] 20:36:40* Test Item Value Reference Range Interpretation Comme nts Adenovirus (test code = 57165-1) Negative Negative Coronavirus HKU1 (test code = 22822-3) Negative Negative Coronavirus NL63 (test code = 78743-1) Negative Negative Coronavirus 229E (test code = 59443-2) Negative Negative Coronavirus OC43 (test code = 83103-6) Negative Negative Human Metapneumovirus (test code = 66989-0) Negative Negative Human Rhinovirus/Enterovirus (test code = 64366-4) Negative Negative Influenza A (test code = 98859-1) Negative Negative Influenza B (test code = 18145-5) Negative Negative Parainfluenza Virus 1 (test code = 79869-1) Negative Negative Parainfluenza Virus 2 (test code = 40044-4) Negative Negative Parainfluenza Virus 3 (test code = 62457-7) Negative Negative Parainfluenza Virus 4 (test code = 32751-2) Negative Negative Respiratory Syncytial Virus (test code = 59814-7) Negative Negative Bordetella parapertussis (test code = 68116-0) Negative Negative Bordetella pertussis (test code = 51030-3) Negative Negative Chlamydia pneumoniae (test code = 39915-1) Negative Negative Mycoplasma pneumoniae (test code = 96220-2) Negative Negative LUCILLE (test code = LUCILLE) Negative:A negativ e result does not rule-out infection. ?This assay does not test for all potential infectious agents. ? Positive:A positive test result does not necessarily indicate the presence of viable organism. ? Lab Interpretation (test code = 04985-1) Normal [facility]I-NUCLEAR ANTIBODY-PATHOLOGIST [id number] 19:52:54ANA - Pathologist InterpretationANA HEp-2 IIFA Pathologist [...] female gender. Clinical correlation is recommended. ? (https://pubmed.ncbi.nlm.nih.gov/90376635/) ? If the patient's clinical condition changes/progresses, [...] indicated. Juanis Mata MD ?10/22/2021 ?1:52 PM [facility] LABORATORY SERVICESH[facility]ANTI-NUCLEAR ANTIBODY- PATHOLOGIST [id number] 19:52:54ANA - Pathologist InterpretationANA HEp-2 II Pathologist [...] female gender. Clinical correlation is recommended. ? (https://pubmed.ncbi.nlm.nih.gov/13489817/) ? If the patient's clinical condition changes/progresses, [...] indicated. Juanis Mata MD ?10/22/2021 ?1:52 PM [facility] WITH [id number] 11:43:17* Test Item Value Reference Range Interpretation [...] 32.1 g/dL 31.6-35.1 RDW-SD (test code = 03375-0) 46.8 fL 39.0-49.9 RDW-CV (test code = 788-0) 14.6 % 12.0-15.5 PLT (test code = 777-3) See_Comment H [Automated message] The system which generated this result transmitted reference range: 166 - 358 10*3/?L. The reference range was not used to interpret this result as normal/abnormal. MPV (test code = 02569-7) 10.2 fL 9.5-12.9 NRBC/100 WBC (test code = 8283312796) See_Comment [Automated message] The system which generated this result transmitted reference range: 0.0 - 10.0 /100 WBCs. The reference range was not used to interpret this result as normal/abnormal. NRBC x10^3 (test code = 6671713943) <0.01 See_Comment [Automated message] The system which generated this result transmitted reference range: 10*3/?L. The reference range was not used to interpret this result as normal/abnormal. GRAN MAT (NEUT) % (test code = 770-8) 93.6 % IMM GRAN % (test code = 6260878470) 2.10 % LYMPH % (test code = 736-9) 2.8 % MONO % (test code = 5905-5) 1.4 % EOS % (test code = 713-8) 0.0 % BASO % (test code = 706-2) 0.1 % GRAN MAT x10^3(ANC) (test code = 4678103717) 17.50 10*3/uL 1.88-7.09 H IMM GRAN x10^3 (test code = 3170178837) 0.40 10*3/uL 0.00-0.06 H LYMPH x10^3 (test code = 731-0) 0.53 10*3/uL 1.32-3.29 L MONO x10^3 (test code = 742-7) 0.26 10*3/uL 0.33-0.92 L EOS x10^3 (test code = 711-2) <0.03 0.03-0.39 L BASO x10^3 (test code = 704-7) <0.03 0.01-0.07 TOXIC CHANGES (test code = 803-7) Present A Lab Interpretation (test code = 82137-3) Abnormal [facility] WITH [id number] 11:43:17* Test Item Value Reference Range Interpretation [...] 32.1 g/dL 31.6-35.1 RDW-SD (test code = 40512-9) 46.8 fL 39.0-49.9 RDW-CV (test code = 788-0) 14.6 % 12.0-15.5 PLT (test code = 777-3) See_Comment H [Automated message] The system which generated this result transmitted reference range: 166 - 358 10*3/?L. The reference range was not used to interpret this result as normal/abnormal. MPV (test code = 89627-5) 10.2 fL 9.5-12.9 NRBC/100 WBC (test code = 1798794049) See_Comment [Automated message] The system which generated this result transmitted reference range: 0.0 - 10.0 /100 WBCs. The reference range was not used to interpret this result as normal/abnormal. NRBC x10^3 (test code = 1638696385) <0.01 See_Comment [Automated message] The system which generated this result transmitted reference range: 10*3/?L. The reference range was not used to interpret this result as normal/abnormal. GRAN MAT (NEUT) % (test code = 770-8) 93.6 % IMM GRAN % (test code = 9115035671) 2.10 % LYMPH % (test code = 736-9) 2.8 % MONO % (test code = 5905-5) 1.4 % EOS % (test code = 713-8) 0.0 % BASO % (test code = 706-2) 0.1 % GRAN MAT x10^3(ANC) (test code = 4646067091) 17.50 10*3/uL 1.88-7.09 H IMM GRAN x10^3 (test code = 0943202284) 0.40 10*3/uL 0.00-0.06 H LYMPH x10^3 (test code = 731-0) 0.53 10*3/uL 1.32-3.29 L MONO x10^3 (test code = 742-7) 0.26 10*3/uL 0.33-0.92 L EOS x10^3 (test code = 711-2) <0.03 0.03-0.39 L BASO x10^3 (test code = 704-7) <0.03 0.01-0.07 TOXIC CHANGES (test code = 803-7) Present A Lab Interpretation (test code = 48819-0) Abnormal [facility] METABOLIC PANEL (NA, K, CL, CO2, GLUCOSE, BUN, CREATININE, CA)2021-10-22 11:20:32* Test Item Value Reference Range Interpretation Comme nts NA (test code = 3551624541) 136 mmol/L 135-145 K (test code = 3811637343) 4.3 mmol/L 3.5-5.0 CL (test code = 0306049579) 103 mmol/L 98-108 CO2 TOTAL (test code = 5154525784) 26 mmol/L 23-31 AGAP (test code = 5494708956) 2-16 BUN (test code = 4167415652) 18 mg/dL 7-23 GLUCOSE (test code = 1865371967) 185 mg/dL 70-110 H CREATININE (test code = 7926039696) 0.69 mg/dL 0.50-1.04 CALCIUM (test code = 2620190570) 7.9 mg/dL 8.6-10.6 L eGFR (test code = 8705513686) mL/min/1.73m2 LUCILLE (test code = LUCILLE) Association [...] imaging tests). Lab Interpretation (test code = 14502-3) Abnormal [facility]2022-02-19 11:20:32* Test Item Value Reference Range Interpretation Comme nts MAGNESIUM (test code = 1546447809) 2.2 mg/dL 1.7-2.4 Lab Interpretation (test cod e = 22487-7) Normal [facility] METABOLIC PAN[facility] (NA, K, CL, CO2, GLUCOSE, BUN, CREATININE, CA)2021-10-22 11:20:32* Test Item Value Reference Range Interpretation Comme nts NA (test code = 6246878239) 136 mmol/L 135-145 K (test code = 2737876835) 4.3 mmol/L 3.5-5.0 CL (test code = 3103899438) 103 mmol/L 98-108 CO2 TOTAL (test code = 1063216753) 26 mmol/L 23-31 AGAP (test code = 9736540294) 2-16 BUN (test code = 1687619897) 18 mg/dL 7-23 GLUCOSE (test code = 7111383473) 185 mg/dL 70-110 H CREATININE (test code = 4877782534) 0.69 mg/dL 0.50-1.04 CALCIUM (test code = 0243055128) 7.9 mg/dL 8.6-10.6 L eGFR (test code = 0604634386) mL/min/1.73m2 LUCILLE (test code = LUCILLE) Association [...] imaging tests). Lab Interpretation (test code = 28366-1) Abnormal [facility]2022-02-19 11:20:32* Test Item Value Reference Range Interpretation Comme nts MAGNESIUM (test code = 5177792866) 2.2 mg/dL 1.7-2.4 Lab Interpretation (test cod e = 98954-4) Normal [facility] C[facility] [id number] 23:01:06* Test Item Value Reference Range Interpretation Comme nts Blood Culture-Aerobic (test code = 40612-9) No organisms isolated No growth Previous preliminary verified result was Culture In Progress on 10/16/2021 at 2002 CSTPrevious preliminary verified result was No growth at 24 hours on 10/17/2021 at 1701 CSTPrevious preliminary verified result was No growth at 48 hours on 10/18/2021 at 1701 CSTPrevious preliminary verified result was No growth at 72 hours on 10/19/2021 at 1702 STEWARD/STEWARDESS ECONOMY CLASS Blood Culture-Anaerobic (test code = 32430-6) No organisms isolated No growth Previous preliminary verified result was Culture In Progress on 10/16/2021 at 2002 CSTPrevious preliminary verified result was No growth at 24 hours on 10/17/2021 at 1701 CSTPrevious preliminary verified result was No growth at 48 hours on 10/18/2021 at 1701 CSTPrevious preliminary verified result was No growth at 72 hours on 10/19/2021 at 1702 STEWARD/STEWARDESS ECONOMY CLASS Lab Interpretation (test code = 11343-9) Normal [facility] CULTURE [id number] 23:01:06* Test Item Value Reference Range Interpretation Comme nts Blood Culture-Aerobic (test code = 49713-5) No organisms isolated No growth Previous preliminary verified result was Culture In Progress on 10/16/2021 at 2001 CSTPrevious preliminary verified result was No growth at 24 hours on 10/17/2021 at 1701 CSTPrevious preliminary verified result was No growth at 48 hours on 10/18/2021 at 1702 CSTPrevious preliminary verified result was No growth at 72 hours on 10/19/2021 at 1702 STEWARD/STEWARDESS ECONOMY CLASS Blood Culture-Anaerobic (test code = 21292-9) No organisms isolated No growth Previous preliminary verified result was Culture In Progress on 10/16/2021 at 2002 CSTPrevious preliminary verified result was No growth at 24 hours on 10/17/2021 at 1701 CSTPrevious preliminary verified result was No growth at 48 hours on 10/18/2021 at 1702 CSTPrevious preliminary verified result was No growth at 72 hours on 10/19/2021 at 1702 STEWARD/STEWARDESS ECONOMY CLASS Lab Interpretation (test code = 88515-1) Normal [facility] CULTURE [id number] 23:01:06* Test Item Value Reference Range Interpretation Comme nts Blood Culture-Aerobic (test code = 90573-1) No organisms isolated No growth Previous preliminary verified result was Culture In Progress on 10/16/2021 at 2002 CSTPrevious preliminary verified result was No growth at 24 hours on 10/17/2021 at 1701 CSTPrevious preliminary verified result was No growth at 48 hours on 10/18/2021 at 1701 CSTPrevious preliminary verified result was No growth at 72 hours on 10/19/2021 at 1702 STEWARD/STEWARDESS ECONOMY CLASS Blood Culture-Anaerobic (test code = 91792-0) No organisms isolated No growth Previous preliminary verified result was Culture In Progress on 10/16/2021 at 2002 CSTPrevious preliminary verified result was No growth at 24 hours on 10/17/2021 at 1701 CSTPrevious preliminary verified result was No growth at 48 hours on 10/18/2021 at 1701 CSTPrevious preliminary verified result was No growth at 72 hours on 10/19/2021 at 1702 STEWARD/STEWARDESS ECONOMY CLASS Lab Interpretation (test code = 00729-9) Normal [facility] [id number] 23:01:06* Test Item Value Reference Range Interpretation Comme nts Blood Culture-Aerobic (test code = 64640-8) No organisms isolated No growth Previous preliminary verified result was Culture In Progress on 10/16/2021 at 2002 CSTPrevious preliminary verified result was No growth at 24 hours on 10/17/2021 at 1701 CSTPrevious preliminary verified result was No growth at 48 hours on 10/18/2021 at 1702 CSTPrevious preliminary verified result was No growth at 72 hours on 10/19/2021 at 1702 STEWARD/STEWARDESS ECONOMY CLASS Blood Culture-Anaerobic (test code = 57193-8) No organisms isolated No growth Previous preliminary verified result was Culture In Progress on 10/16/2021 at 2002 CSTPrevious preliminary verified result was No growth at 24 hours on 10/17/2021 at 1701 CSTPrevious preliminary verified result was No growth at 48 hours on 10/18/2021 at 1702 CSTPrevious preliminary verified result was No growth at 72 hours on 10/19/2021 at 1702 STEWARD/STEWARDESS ECONOMY CLASS Lab Interpretation (test code = 71693-6) Normal [facility] PAN[facility] 20 + LACTIC [id number] 20:42:21* Test Item Value Reference Range Interpretation Comme nts PH (test code = 2) 7.35-7.45 PCO2 (test code = 9517748078) See_Comment [Automated messa ge] The system which generated this result transmitted reference range: 35 - 45 mmHg. The reference range was not used to interpret this result as normal/abnormal. PO2 (test code = 3094867300) See_Comment H [Automated messa ge] The system which generated this result transmitted reference range: 80 - 100 mmHg. The reference range was not used to interpret this result as normal/abnormal. HCO3 (test code = 0780773625) See_Comment [Automated messa ge] The system which generated this result transmitted reference range: 22 - 26 mEq/L. The reference range was not used to interpret this result as normal/abnormal. BE (test code = 4629682622) See_Comment [Automated messa ge] The system which generated this result transmitted reference range: -3.0 - 3.0 mEq/L. The reference range was not used to interpret this result as normal/abnormal. THB (test code = 1172789422) 12.1 g/dL 12.0-16.0 %O2HB (test code = 6026961106) 99.5 % 94.0-99.0 H %COHB ART (test code = 8433182466) 0.1 % 0.0-1.5 %METHB ART (test code = 6510534145) 0.1 % 0.4-1.5 L VOL%O2 ART (test code = 5983016063) 17.8 % 15.0-23.0 NA (test code = 5694083948) 135 mmol/L 135-145 K+ (test code = 6188346649) 4.3 mmol/L 3.5-5.0 AC CA IONZ (test code = 2221707170) 4.50 mg/dL 4.50-5.30 GLUCOSE (test code = 3257214289) 108 mg/dL 70-110 LACTIC ACID (test code = 8224068157) 2.19 mmol/L 0.50-2.20 Lab Interpretation (test code = 01125-1) Abnormal [facility] 20 + LACTIC [id number] 20:42:21* Test Item Value Reference Range Interpretation Comme nts PH (test code = 2) 7.35-7.45 PCO2 (test code = 9087629758) See_Comment [Automated messa ge] The system which generated this result transmitted reference range: 35 - 45 mmHg. The reference range was not used to interpret this result as normal/abnormal. PO2 (test code = 1048692242) See_Comment H [Automated messa ge] The system which generated this result transmitted reference range: 80 - 100 mmHg. The reference range was not used to interpret this result as normal/abnormal. HCO3 (test code = 1791111470) See_Comment [Automated messa ge] The system which generated this result transmitted reference range: 22 - 26 mEq/L. The reference range was not used to interpret this result as normal/abnormal. BE (test code = 3191512198) See_Comment [Automated messa ge] The system which generated this result transmitted reference range: -3.0 - 3.0 mEq/L. The reference range was not used to interpret this result as normal/abnormal. THB (test code = 6143724256) 12.1 g/dL 12.0-16.0 %O2HB (test code = 9692138365) 99.5 % 94.0-99.0 H %COHB ART (test code = 4855284666) 0.1 % 0.0-1.5 %METHB ART (test code = 2750279088) 0.1 % 0.4-1.5 L VOL%O2 ART (test code = 1448779341) 17.8 % 15.0-23.0 NA (test code = 1761203378) 135 mmol/L 135-145 K+ (test code = 4328445970) 4.3 mmol/L 3.5-5.0 AC CA IONZ (test code = 3069628861) 4.50 mg/dL 4.50-5.30 GLUCOSE (test code = 3982019408) 108 mg/dL 70-110 LACTIC ACID (test code = 1037978977) 2.19 mmol/L 0.50-2.20 Lab Interpretation (test code = 54997-4) [facility]normal [facility] [id number] 20:19:53* Test Item Value Reference Range Interpretation Comme nts MELLY (test code = 2742-5) 28 U/L 9-67 Performed By: NATTY [employer] [place] [id number] Director: Korin Barillas MD [facility] SoutheastANGIOTENSIN CONVERTING [id number] 20:19:53* Test Item Value Reference Range Interpretation Comme nts MELLY (test code = 2742-5) 28 U/L 9-67 Performed By: [address] [id number] Director: Korin Barillas MD [facility] SoutheastBODY FLUID MANUAL [id number] 19:44:45* Test Item Value Reference Range Interpretation Comme nts BF SEGS% (test code = 88890-5) 2 % BF LYMPHS% (test code = 84260-7) 12 % BF MACROPHAGE% (test code = 66363-5) 86 % BF #CELLS CNTD (test code = 8585355141) cells/u L [facility] Southeast[facility]ODY FLUID MANUAL [id number] 19:44:45* Test Item Value Reference Range Interpretation Comme nts BF SEGS% (test code = 13953-3) 2 % BF LYMPHS% (test code = 88617-5) 12 % BF MACROPHAGE% (test code = 47726-3) 86 % BF #CELLS CNTD (test code = 2383414719) cells/u L [facility] FLUID DIRECT [id number] 19:44:30* Test Item Value Reference Range Interpretation Comme nts BF COLOR (test code = 8479433021) Clear BF WBC Count (test code = 4731698787) See_Comment [Automated messa ge] The system which generated this result transmitted reference range: /?L. The reference range was not used to interpret this result as normal/abnormal. BF RBC Count (test code = 8344674063) <3000 See_Comment [Automated messa ge] The system which generated this result transmitted reference range: /?L. The reference range was not used to interpret this result as normal/abnormal. LUCILLE (test code = LUCILLE) The reference range and other method performance specifications have not been established for this body fluid. ?The test results must be integrated into the clinical context for interpretation. [facility] SoutheastBODY FLUID DIRECT [id number] 19:44:30* Test Item Value Reference Range Interpretation Comme nts BF COLOR (test code = 8904618566) Clear BF WBC Count (test code = 2797244808) See_Comment [Automated messa ge] The system which generated this result transmitted reference range: /?L. The reference range was not used to interpret this result as normal/abnormal. BF RBC Count (test code = 2680249696) <3000 See_Comment [Automated messa ge] The system which generated this result transmitted reference range: /?L. The reference range was not used to interpret this result as normal/abnormal. LUCILLE (test code = LUCILLE) The reference range and other method performance specifications have not been established for this body fluid. ?The test results must be integrated into the clinical context for interpretation. [facility] WITH [id number] 19:27:30* Test Item Value Reference Range Interpretation [...] g/dL 31.6-35.1 H RDW-SD (test code = 90175-7) 45.8 fL 39.0-49.9 RDW-CV (test code = 788-0) 14.4 % 12.0-15.5 PLT (test code = 777-3) See_Comment H [Automated message] The system which generated this result transmitted reference range: 166 - 358 10*3/?L. The reference range was not used to interpret this result as normal/abnormal. MPV (test code = 81942-5) 10.4 fL 9.5-12.9 NRBC/100 WBC (test code = 2361524446) See_Comment [Automated message] The system which generated this result transmitted reference range: 0.0 - 10.0 /100 WBCs. The reference range was not used to interpret this result as normal/abnormal. NRBC x10^3 (test code = 1370508312) See_Comment [Automated message] The system which generated this result transmitted reference range: 10*3/?L. The reference range was not used to interpret this result as normal/abnormal. SEG % (test code = 56351-9) 84 % 33-76 H BAND % (test code = 73616-9) 8 % 0-1 H MYELO % (test code = 80175-1) 2 % See_Comment H [Automated message] The system which generated this result transmitted reference range: <=0. The reference range was not used to interpret this result as normal/abnormal. LYMPH % (test code = 97196-4) 4 % 14-54 L MONO % (test code = 49081-9) 2 % 0-4 ANC (test code = 753-4) 21.16 10*3/uL 1.88-7.09 H Lab Interpretation (test code = 70241-9) Abnormal [facility] WITH [id number] 19:27:30* Test Item Value Reference Range Interpretation [...] g/dL 31.6-35.1 H RDW-SD (test code = 24396-2) 45.8 fL 39.0-49.9 RDW-CV (test code = 788-0) 14.4 % 12.0-15.5 PLT (test code = 777-3) See_Comment H [Automated message] The system which generated this result transmitted reference range: 166 - 358 10*3/?L. The reference range was not used to interpret this result as normal/abnormal. MPV (test code = 36191-9) 10.4 fL 9.5-12.9 NRBC/100 WBC (test code = 3398504339) See_Comment [Automated message] The system which generated this result transmitted reference range: 0.0 - 10.0 /100 WBCs. The reference range was not used to interpret this result as normal/abnormal. NRBC x10^3 (test code = 1017064829) See_Comment [Automated message] The system which generated this result transmitted reference range: 10*3/?L. The reference range was not used to interpret this result as normal/abnormal. SEG % (test code = 36851-6) 84 % 33-76 H BAND % (test code = 67571-7) 8 % 0-1 H MYELO % (test code = 23033-8) 2 % See_Comment H [Automated message] The system which generated this result transmitted reference range: <=0. The reference range was not used to interpret this result as normal/abnormal. LYMPH % (test code = 24739-3) 4 % 14-54 L MONO % (test code = 90192-6) 2 % 0-4 ANC (test code = 753-4) 21.16 10*3/uL 1.88-7.09 H Lab Interpretation (test code = 59319-4) [facility] (NA, K, CL, CO2, GLUCOSE, BUN, CREATININE, CA)2021-10-21 19:20:26* Test Item Value Reference Range Interpretation Comme nts NA (test code = 4081077324) 125 mmol/L 135-145 L K (test code = 6996423201) 4.4 mmol/L 3.5-5.0 Slight hemolysis CL (test code = 2311944489) 98 mmol/L 98-108 CO2 TOTAL (test code = 7018482473) 19 mmol/L 23-31 L AGAP (test code = 3159852324) 2-16 BUN (test code = 7978330177) 21 mg/dL 7-23 Slight hemolysis GLUCOSE (test code = 8363659516) 155 mg/dL 70-110 H CREATININE (test code = 6414438138) 0.63 mg/dL 0.50-1.04 CALCIUM (test code = 2146383266) 6.9 mg/dL 8.6-10.6 L eGFR (test code = 3624268670) mL/min/1.73m2 LUCILLE (test code = LUCILLE) Association [...] imaging tests). Lab Interpretation (test code = 78332-6) [facility]normal [facility] (NA, K, CL, CO2, GLUCOSE, BUN, CREATININE, CA)2021-10-21 19:20:26* Test Item Value Reference Range Interpretation Comme nts NA (test code = 2830656130) 125 mmol/L 135-145 L K (test code = 6833733946) 4.4 mmol/L 3.5-5.0 Slight hemolysis CL (test code = 7215121419) 98 mmol/L 98-108 CO2 TOTAL (test code = 2514583475) 19 mmol/L 23-31 L AGAP (test code = 5984736766) 2-16 BUN (test code = 1149832742) 21 mg/dL 7-23 Slight hemolysis GLUCOSE (test code = 0609653059) 155 mg/dL 70-110 H CREATININE (test code = 1485066921) 0.63 mg/dL 0.50-1.04 CALCIUM (test code = 8511571409) 6.9 mg/dL 8.6-10.6 L eGFR (test code = 0626721682) mL/min/1.73m2 LUCILLE (test code = LUCILLE) Association [...] imaging tests). Lab Interpretation (test code = 16501-0) [facility]:12[facility]* Test Item Value Reference Range Interpretation Comme nts Fibrinogen (test code = 8416336883) 585 mg/dL 167-453 H Lab Interpretation (test cod e = 89356-8) Abnormal [facility]PROT[facility] / [id number] 19:12:03* Test Item Value Reference Range Interpretation Comme nts PROTIME PATIENT (test code = 5964-2) See_Comment H [Automated Misticoma SpearFysh] The system which generated this result transmitted reference range: 10.1 - 12.6 Seconds. The reference range was not used to interpret this result as normal/abnormal. INR (test code = 6301-6) Normal INR <1.1; Warfarin Therapeutic range 2.0 to 3.0 or 2.5 to 3.5, depending upon the indications. Lab Interpretation (test code = 34224-2) [facility]:12[facility]* Test Item Value Reference Range Interpretation Comme nts Fibrinogen (test code = 9974184748) 585 mg/dL 167-453 H Lab Interpretation (test cod e = 23805-4) [facility] / [id number] 19:12:03* Test Item Value Reference Range Interpretation Comme nts PROTIME PATIENT (test code = 5964-2) See_Comment H [Automated Misticoma SpearFysh] The system which generated this result transmitted reference range: 10.1 - 12.6 Seconds. The reference range was not used to interpret this result as normal/abnormal. INR (test code = 6301-6) Normal INR <1.1; Warfarin Therapeutic range 2.0 to 3.0 or 2.5 to 3.5, depending upon the indications. Lab Interpretation (test code = 36746-9) Abnormal [facility]URIC [id number] 04:54:18* Test Item Value Reference Range Interpretation Comme nts URIC ACID (test code = 3416331942) 4.3 mg/dL 2.9-6.0 Lab Interpretation (test cod e = 95199-3) Normal [facility] [id number] 04:54:18* Test Item Value Reference Range Interpretation Comme nts URIC ACID (test code = 9029308670) 4.3 mg/dL 2.9-6.0 Lab Interpretation (test cod e = 32412-3) Normal [facility]Transthor[facility] (TTE)2021-10-20 20:54:06* Test Item Value Reference Range Interpretation Comme nts EF(Teich) (test code = 5883248058) 63.80 % LVIDD (test code = 1859737382) 4.40 cm LVIDS (test code = 4493319353) 2.90 cm IVS (test code = 2963655517) 0.86 cm LVPWD (test code = 8539902855) 0.86 cm LVOT diameter (test code = 1324513825) 2.00 cm FS (test code = 2421281847) 35 % LA size (test code = 5288250320) 3.4 cm LAV(MOD-sp4) (test code = 4206578294) 41.40 mL Ao root annulus (test code = 1297679624) 2.44 cm Ao root diam (test code = 0080484373) 2.44 cm Aortic root (test code = 9992333826) 2.44 cm PW (test code = 3536739219) 0.86 cm 0.6-1.1 EF - 2D (test code = 27968357) 63.80 % Interventricular Septum Diastolic Thickness by 2D (test code = 3431229) 0.86 cm Radiology Study observation (narrative) (test code = 64377-2) LUCILLE (test code = LUCILLE) ?Left?Ventricle: Left ventricle is normal in size and function. Normal wall thickness. Normal systolic function with a visually estimated EF of 55 - 60%. ?Aortic?Valve: Aortic valve is normal in structure and function. ?Mitral?Valve: Mitral valve is normal in structure and function. VitalsHeight Weight BSA (Calculated - sq m) BP Pulse 60 220lb ? ?114/63 81 [facility]anst[facility] ([facility]2021-10-20 20:54:06* Test Item Value Reference Range Interpretation Comme nts EF(Teich) (test code = 8252617393) 63.80 % LVIDD (test code = 7503357628) 4.40 cm LVIDS (test code = 0380604727) 2.90 cm IVS (test code = 3713767166) 0.86 cm LVPWD (test code = 9967460720) 0.86 cm LVOT diameter (test code = 4188660860) 2.00 cm FS (test code = 2568419149) 35 % LA size (test code = 0599786080) 3.4 cm LAV(MOD-sp4) (test code = 3900065202) 41.40 mL Ao root annulus (test code = 4042686368) 2.44 cm Ao root diam (test code = 5222347457) 2.44 cm Aortic root (test code = 0637357381) 2.44 cm PW (test code = 8098509804) 0.86 cm 0.6-1.1 EF - 2D (test code = 98429688) 63.80 % Interventricular Septum Diastolic Thickness by 2D (test code = 3481400) 0.86 cm Radiology Study observation (narrative) (test code = 00469-8) LUCILLE (test code = LUCILLE) ?Left?Ventricle: Left ventricle is normal in size and function. Normal wall thickness. Normal systolic function with a visually estimated EF of 55 - 60%. ?Aortic?Valve: Aortic valve is normal in structure and function. ?Mitral?Valve: Mitral valve is normal in structure and function. VitalsHeight Weight BSA (Calculated - sq m) BP Pulse 60 220lb ? ?114/63 81 [facility] WITH [id number] 11:09:20* Test Item Value Reference Range Interpretation [...] 31.9 g/dL 31.6-35.1 RDW-SD (test code = 55860-1) 46.3 fL 39.0-49.9 RDW-CV (test code = 788-0) 14.5 % 12.0-15.5 PLT (test code = 777-3) See_Comment [Automated message] The system which generated this result transmitted reference range: 166 - 358 10*3/?L. The reference range was not used to interpret this result as normal/abnormal. MPV (test code = 89681-2) 9.9 fL 9.5-12.9 NRBC/100 WBC (test code = 9520422140) See_Comment [Automated message] The system which generated this result transmitted reference range: 0.0 - 10.0 /100 WBCs. The reference range was not used to interpret this result as normal/abnormal. NRBC x10^3 (test code = 2702825954) <0.01 See_Comment [Automated message] The system which generated this result transmitted reference range: 10*3/?L. The reference range was not used to interpret this result as normal/abnormal. GRAN MAT (NEUT) % (test code = 770-8) 89.9 % IMM GRAN % (test code = 4533597283) 2.90 % LYMPH % (test code = 736-9) 4.2 % MONO % (test code = 5905-5) 2.9 % EOS % (test code = 713-8) 0.0 % BASO % (test code = 706-2) 0.1 % GRAN MAT x10^3(ANC) (test code = 4246297134) 14.51 10*3/uL 1.88-7.09 H IMM GRAN x10^3 (test code = 2389981904) 0.46 10*3/uL 0.00-0.06 H LYMPH x10^3 (test code = 731-0) 0.67 10*3/uL 1.32-3.29 L MONO x10^3 (test code = 742-7) 0.47 10*3/uL 0.33-0.92 EOS x10^3 (test code = 711-2) <0.03 0.03-0.39 L BASO x10^3 (test code = 704-7) <0.03 0.01-0.07 TOXIC CHANGES (test code = 803-7) Present A Lab Interpretation (test code = 24745-6) Abnormal [facility] WITH [id number] 11:09:20* Test Item Value Reference Range Interpretation [...] 31.9 g/dL 31.6-35.1 RDW-SD (test code = 36979-8) 46.3 fL 39.0-49.9 RDW-CV (test code = 788-0) 14.5 % 12.0-15.5 PLT (test code = 777-3) See_Comment [Automated message] The system which generated this result transmitted reference range: 166 - 358 10*3/?L. The reference range was not used to interpret this result as normal/abnormal. MPV (test code = 28341-4) 9.9 fL 9.5-12.9 NRBC/100 WBC (test code = 5783191658) See_Comment [Automated message] The system which generated this result transmitted reference range: 0.0 - 10.0 /100 WBCs. The reference range was not used to interpret this result as normal/abnormal. NRBC x10^3 (test code = 2630098908) <0.01 See_Comment [Automated message] The system which generated this result transmitted reference range: 10*3/?L. The reference range was not used to interpret this result as normal/abnormal. GRAN MAT (NEUT) % (test code = 770-8) 89.9 % IMM GRAN % (test code = 0601300420) 2.90 % LYMPH % (test code = 736-9) 4.2 % MONO % (test code = 5905-5) 2.9 % EOS % (test code = 713-8) 0.0 % BASO % (test code = 706-2) 0.1 % GRAN MAT x10^3(ANC) (test code = 2184097982) 14.51 10*3/uL 1.88-7.09 H IMM GRAN x10^3 (test code = 5925714285) 0.46 10*3/uL 0.00-0.06 H LYMPH x10^3 (test code = 731-0) 0.67 10*3/uL 1.32-3.29 L MONO x10^3 (test code = 742-7) 0.47 10*3/uL 0.33-0.92 EOS x10^3 (test code = 711-2) <0.03 0.03-0.39 L BASO x10^3 (test code = 704-7) <0.03 0.01-0.07 TOXIC CHANGES (test code = 803-7) Present A Lab Interpretation (test code = 29785-9) Abnormal [facility] METABOLIC PANEL (NA, K, CL, CO2, GLUCOSE, BUN, CREATININE, CA)2021-10-20 10:55:22* Test Item Value Reference Range Interpretation Comme nts NA (test code = 2019775879) 136 mmol/L 135-145 K (test code = 5665978023) 4.1 mmol/L 3.5-5.0 CL (test code = 7700684477) 108 mmol/L 98-108 CO2 TOTAL (test code = 3831551545) 25 mmol/L 23-31 AGAP (test code = 9733944663) 2-16 BUN (test code = 2400106553) 23 mg/dL 7-23 GLUCOSE (test code = 0462449188) 134 mg/dL 70-110 H CREATININE (test code = 4472953190) 0.67 mg/dL 0.50-1.04 CALCIUM (test code = 1392888692) 7.5 mg/dL 8.6-10.6 L eGFR (test code = 5101549815) mL/min/1.73m2 LUCILLE (test code = LUCILLE) Association [...] imaging tests). Lab Interpretation (test code = 40570-0) Abnormal [facility] METABOLIC PANEL (NA, K, CL, CO2, GLUCOSE, BUN, CREATININE, CA)2021-10-20 10:55:22* Test Item Value Reference Range Interpretation Comme nts NA (test code = 3235736859) 136 mmol/L 135-145 K (test code = 6409576949) 4.1 mmol/L 3.5-5.0 CL (test code = 8548896194) 108 mmol/L 98-108 CO2 TOTAL (test code = 5282917478) 25 mmol/L 23-31 AGAP (test code = 3357433806) 2-16 BUN (test code = 6354856399) 23 mg/dL 7-23 GLUCOSE (test code = 5672078805) 134 mg/dL 70-110 H CREATININE (test code = 2289772290) 0.67 mg/dL 0.50-1.04 CALCIUM (test code = 4473649281) 7.5 mg/dL 8.6-10.6 L eGFR (test code = 1904013504) mL/min/1.73m2 LUCILLE (test code = LUCILLE) Association [...] imaging tests). Lab Interpretation (test code = 16426-3) Abnormal [facility] [id number] 21:49:45* Test Item Value Reference Range Interpretation Comme nts ANTI-DSDNA (test code = 8760125050) See_Comment [Automated message] The system which generated this result transmitted reference range: 0.0 - 4.0 IU/mL. The reference range was not used to interpret this result as normal/abnormal. LUCILLE (test code = LUCILLE) Negative ? ?< or = 4 IU/mLPositive ? ? ?> or = 10 IU/mLIndetermin ate ?5-9 IU/mL Lab Interpretation (test code = 87742-9) Normal [facility] [id number] 21:49:45* Test Item Value Reference Range Interpretation Comme nts ANTI-DSDNA (test code = 2086405836) See_Comment [Automated message] The system which generated this result transmitted reference range: 0.0 - 4.0 IU/mL. The reference range was not used to interpret this result as normal/abnormal. LUCILLE (test code = LUCILLE) Negative ? ?< or = 4 IU/mLPositive ? ? ?> or = 10 IU/mLIndetermin ate ?5-9 IU/mL Lab Interpretation (test code = 96438-8) [facility] [id number] 21:43:06* Test Item Value Reference Range Interpretation Comme nts RF (test code = 2493190940) <20 See_Comment [Automated Misticoma ge] The system which generated this result transmitted reference range: <20 IU/mL. The reference range was not used to interpret this result as normal/abnormal. Lab Interpretation (test code = 98884-0) [facility] [id number] 21:43:06* Test Item Value Reference Range Interpretation Comme nts RF (test code = 4827809110) <20 See_Comment [Automated messa ge] The system which generated this result transmitted reference range: <20 IU/mL. The reference range was not used to interpret this result as normal/abnormal. Lab Interpretation (test code = 11394-1) Normal [facility] ANTIBODY [id number] 20:22:55 * Test Item Value Reference Range Interpretation Comme nts SHIRA Titer by IFA (test code = 8335018773) <=1:80 SHIRA Pattern (test code = 1842130108) SHIRA screen was positive at the 1:80 [...] specimen will be held for 7 days. [facility]CLE[facility] ANTIBODY [id number] 20:22:55 * Test Item Value Reference Range Interpretation Comme nts SHIRA Titer by IFA (test code = 6475050854) <=1:80 SHIRA Pattern (test code = 2937347707) SHIRA screen was positive at the 1:80 [...] specimen will be held for 7 days. [facility]ANCA [id number] 18:12:04* Test Item Value Reference Range Interpretation Comme nts Myeloperoxidase (MPO) Antibodies, IgG Interpretation (test code = 88150-9) Negative Negative Proteinase 3 (PR3) Antibodies, IgG Interpretation (test code = 52398-9) Negative Negative Myeloperoxidase (MPO) Antibodies, IgG (test code = 4646165367) <0.3 See_Comment [Automated message] The system which generated this result transmitted reference range: <=3.5 U/mL. The reference range was not used to interpret this result as normal/abnormal. Proteinase 3 (PR3) Antibodies, IgG (test code = 0681599951) <0.7 See_Comment [Automated message] The system which [...] 12 weeks. Lab Interpretation (test code = 30960-8) Normal [facility] [id number] 18:12:04* Test Item Value Reference Range Interpretation Comme nts Myeloperoxidase (MPO) Antibodies, IgG Interpretation (test code = 43001-4) Negative Negative Proteinase 3 (PR3) Antibodies, IgG Interpretation (test code = 58017-2) Negative Negative Myeloperoxidase (MPO) Antibodies, IgG (test code = 0083845320) <0.3 See_Comment [Automated message] The system which generated this result transmitted reference range: <=3.5 U/mL. The reference range was not used to interpret this result as normal/abnormal. Proteinase 3 (PR3) Antibodies, IgG (test code = 4274224996) <0.7 See_Comment [Automated message] The system which [...] 12 weeks. Lab Interpretation (test code = 55880-9) Normal [facility]2022-[facility]-16 10:47:40* Test Item Value Reference Range Interpretation Comme nts MAGNESIUM (test code = 2870543700) 2.9 mg/dL 1.7-2.4 H Lab Interpretation (test cod e = 31813-9) Abnormal [facility]2022-[facility]-16 10:47:40* Test Item Value Reference Range Interpretation Comme nts MAGNESIUM (test code = 2596108180) 2.9 mg/dL 1.7-2.4 H Lab Interpretation (test cod e = 72807-6) Abnormal [facility] WITH [id number] 09:31:49* Test Item Value Reference Range Interpretation [...] 32.8 g/dL 31.6-35.1 RDW-SD (test code = 50410-8) 45.5 fL 39.0-49.9 RDW-CV (test code = 788-0) 14.4 % 12.0-15.5 PLT (test code = 777-3) See_Comment [Automated message] The system which generated this result transmitted reference range: 166 - 358 10*3/?L. The reference range was not used to interpret this result as normal/abnormal. MPV (test code = 22329-2) 10.0 fL 9.5-12.9 NRBC/100 WBC (test code = 4049904372) See_Comment [Automated message] The system which generated this result transmitted reference range: 0.0 - 10.0 /100 WBCs. The reference range was not used to interpret this result as normal/abnormal. NRBC x10^3 (test code = 5481035814) <0.01 See_Comment [Automated message] The system which generated this result transmitted reference range: 10*3/?L. The reference range was not used to interpret this result as normal/abnormal. GRAN MAT (NEUT) % (test code = 770-8) 93.4 % IMM GRAN % (test code = 4886912546) 1.50 % LYMPH % (test code = 736-9) 2.4 % MONO % (test code = 5905-5) 2.6 % EOS % (test code = 713-8) 0.0 % BASO % (test code = 706-2) 0.1 % GRAN MAT x10^3(ANC) (test code = 0920943332) 17.74 10*3/uL 1.88-7.09 H IMM GRAN x10^3 (test code = 3450095835) 0.28 10*3/uL 0.00-0.06 H LYMPH x10^3 (test code = 731-0) 0.46 10*3/uL 1.32-3.29 L MONO x10^3 (test code = 742-7) 0.50 10*3/uL 0.33-0.92 EOS x10^3 (test code = 711-2) <0.03 0.03-0.39 L BASO x10^3 (test code = 704-7) <0.03 0.01-0.07 TOXIC CHANGES (test code = 803-7) Present A Lab Interpretation (test code = 85062-1) Abnormal [facility] WITH [id number] 09:31:49* Test Item Value Reference Range Interpretation [...] 32.8 g/dL 31.6-35.1 RDW-SD (test code = 99653-4) 45.5 fL 39.0-49.9 RDW-CV (test code = 788-0) 14.4 % 12.0-15.5 PLT (test code = 777-3) See_Comment [Automated message] The system which generated this result transmitted reference range: 166 - 358 10*3/?L. The reference range was not used to interpret this result as normal/abnormal. MPV (test code = 45537-1) 10.0 fL 9.5-12.9 NRBC/100 WBC (test code = 2966177399) See_Comment [Automated message] The system which generated this result transmitted reference range: 0.0 - 10.0 /100 WBCs. The reference range was not used to interpret this result as normal/abnormal. NRBC x10^3 (test code = 6552260529) <0.01 See_Comment [Automated message] The system which generated this result transmitted reference range: 10*3/?L. The reference range was not used to interpret this result as normal/abnormal. GRAN MAT (NEUT) % (test code = 770-8) 93.4 % IMM GRAN % (test code = 4895045144) 1.50 % LYMPH % (test code = 736-9) 2.4 % MONO % (test code = 5905-5) 2.6 % EOS % (test code = 713-8) 0.0 % BASO % (test code = 706-2) 0.1 % GRAN MAT x10^3(ANC) (test code = 7162675282) 17.74 10*3/uL 1.88-7.09 H IMM GRAN x10^3 (test code = 6468290246) 0.28 10*3/uL 0.00-0.06 H LYMPH x10^3 (test code = 731-0) 0.46 10*3/uL 1.32-3.29 L MONO x10^3 (test code = 742-7) 0.50 10*3/uL 0.33-0.92 EOS x10^3 (test code = 711-2) <0.03 0.03-0.39 L BASO x10^3 (test code = 704-7) <0.03 0.01-0.07 TOXIC CHANGES (test code = 803-7) Present A Lab Interpretation (test code = 78870-2) Abnormal [facility] METABOLIC PANEL (NA, K, CL, CO2, GLUCOSE, BUN, CREATININE, CA)2021-10-19 09:25:48* Test Item Value Reference Range Interpretation Comme nts NA (test code = 0143066018) 144 mmol/L 135-145 K (test code = 3655613334) 4.5 mmol/L 3.5-5.0 CL (test code = 4484673293) 111 mmol/L 98-108 H CO2 TOTAL (test code = 1310095099) 27 mmol/L 23-31 AGAP (test code = 3175512514) 2-16 BUN (test code = 0857238396) 30 mg/dL 7-23 H GLUCOSE (test code = 5422160015) 159 mg/dL 70-110 H CREATININE (test code = 6977925884) 0.81 mg/dL 0.50-1.04 CALCIUM (test code = 9633852420) 8.2 mg/dL 8.6-10.6 L eGFR (test code = 2367732985) mL/min/1.73m2 LUCILLE (test code = LUCILLE) Association [...] imaging tests). Lab Interpretation (test code = 56168-4) Abnormal [facility] METABOLIC PANEL (NA, K, CL, CO2, GLUCOSE, BUN, CREATININE, CA)2021-10-19 09:25:48* Test Item Value Reference Range Interpretation Comme nts NA (test code = 6612279073) 144 mmol/L 135-145 K (test code = 2148889363) 4.5 mmol/L 3.5-5.0 CL (test code = 9905422778) 111 mmol/L 98-108 H CO2 TOTAL (test code = 3880252380) 27 mmol/L 23-31 AGAP (test code = 4758032294) 2-16 BUN (test code = 7094082787) 30 mg/dL 7-23 H GLUCOSE (test code = 5034021362) 159 mg/dL 70-110 H CREATININE (test code = 3555727751) 0.81 mg/dL 0.50-1.04 CALCIUM (test code = 1134138467) 8.2 mg/dL 8.6-10.6 L eGFR (test code = 6966791270) mL/min/1.73m2 LUCILLE (test code = LUCILLE) Association [...] imaging tests). Lab Interpretation (test code = 01499-9) Abnormal [facility] GLUCOSE (AUTOMATED)2021-10-19 02:29:39* Test Item Value Reference Range Interpretation Comme [facility] POCT GLU (test code = 4972701986) 159 mg/dL 70-110 H Lab Interpretation (test cod e = 08315-3) Abnormal [facility] GLUCOSE (AUTOMATED)2021-10-19 02:29:39* Test Item Value Reference Range Interpretation Comme [facility] POCT GLU (test code = 8327151132) 159 mg/dL 70-110 H Lab Interpretation (test cod e = 42018-8) [facility] [id number] 22:06:05* Test Item Value Reference Range Interpretation Comme [facility] SHIRA (test code = 4897490746) Positive Negative A LUCILLE (test code = LUCILLE) Negative - No Anti-Nuclear Antibodies detected by IFA.Positive - SHIRA IFA screen performed with a 1:80 dilution in adults and a 1:40 dilution in pediatrics. Any SHIRA "Positive" will have titer performed and reported separately. Lab Interpretation (test code = 55507-9) [facility]normal [facility] [id number] 22:06:05* Test Item Value Reference Range Interpretation Comme nts SHIRA (test code = 0163913079) Positive Negative A LUCILLE (test code = LUCILLE) Negative - No Anti-Nuclear Antibodies detected by IFA.Positive - SHIRA IFA screen performed with a 1:80 dilution in adults and a 1:40 dilution in pediatrics. Any SHIRA "Positive" will have titer performed and reported separately. Lab Interpretation (test code = 76707-1) [facility]normal [facility] (A1C)2021-10-18 17:16:16* Test Item Value Reference Range Interpretation Comme nts HGB A1C (test code = 4548-4) 6.0 % 4.0-5.7 H LUCILLE (test code = LUCILLE) Reference RangesNormal: <5.7%Prediabetes: 5.7 - 6.4%Diabetes: > 6.5% Lab Interpretation (test code = 14685-4) [facility]normal [facility]A1C)2021-10-18 17:16:16* Test Item Value Reference Range Interpretation Comme nts HGB A1C (test code = 4548-4) 6.0 % 4.0-5.7 H LUCILLE (test code = LUCILLE) Reference RangesNormal: <5.7%Prediabetes: 5.7 - 6.4%Diabetes: > 6.5% Lab Interpretation (test code = 23755-3) [facility]normal [facility] WITH [id number] 10:21:29* Test Item Value Reference Range Interpretation [...] 33.4 g/dL 31.6-35.1 RDW-SD (test code = 95008-0) 44.0 fL 39.0-49.9 RDW-CV (test code = 788-0) 14.1 % 12.0-15.5 PLT (test code = 777-3) See_Comment [Automated message] The system which generated this result transmitted reference range: 166 - 358 10*3/?L. The reference range was not used to interpret this result as normal/abnormal. MPV (test code = 25526-2) 10.5 fL 9.5-12.9 NRBC/100 WBC (test code = 6479318640) See_Comment [Automated message] The system which generated this result transmitted reference range: 0.0 - 10.0 /100 WBCs. The reference range was not used to interpret this result as normal/abnormal. NRBC x10^3 (test code = 5542356614) <0.01 See_Comment [Automated message] The system which generated this result transmitted reference range: 10*3/?L. The reference range was not used to interpret this result as normal/abnormal. GRAN MAT (NEUT) % (test code = 770-8) 94.3 % IMM GRAN % (test code = 9376278534) 1.00 % LYMPH % (test code = 736-9) 2.1 % MONO % (test code = 5905-5) 2.5 % EOS % (test code = 713-8) 0.0 % BASO % (test code = 706-2) 0.1 % GRAN MAT x10^3(ANC) (test code = 2730626021) 18.69 10*3/uL 1.88-7.09 H IMM GRAN x10^3 (test code = 3522708153) 0.20 10*3/uL 0.00-0.06 H LYMPH x10^3 (test code = 731-0) 0.42 10*3/uL 1.32-3.29 L MONO x10^3 (test code = 742-7) 0.50 10*3/uL 0.33-0.92 EOS x10^3 (test code = 711-2) <0.03 0.03-0.39 L BASO x10^3 (test code = 704-7) <0.03 0.01-0.07 TOXIC CHANGES (test code = 803-7) Present A Lab Interpretation (test code = 11746-5) Abnormal [facility] WITH [id number] 10:21:29* Test Item Value Reference Range Interpretation [...] 33.4 g/dL 31.6-35.1 RDW-SD (test code = 03276-9) 44.0 fL 39.0-49.9 RDW-CV (test code = 788-0) 14.1 % 12.0-15.5 PLT (test code = 777-3) See_Comment [Automated message] The system which generated this result transmitted reference range: 166 - 358 10*3/?L. The reference range was not used to interpret this result as normal/abnormal. MPV (test code = 19859-7) 10.5 fL 9.5-12.9 NRBC/100 WBC (test code = 4950585797) See_Comment [Automated message] The system which generated this result transmitted reference range: 0.0 - 10.0 /100 WBCs. The reference range was not used to interpret this result as normal/abnormal. NRBC x10^3 (test code = 7684320521) <0.01 See_Comment [Automated message] The system which generated this result transmitted reference range: 10*3/?L. The reference range was not used to interpret this result as normal/abnormal. GRAN MAT (NEUT) % (test code = 770-8) 94.3 % IMM GRAN % (test code = 5355618154) 1.00 % LYMPH % (test code = 736-9) 2.1 % MONO % (test code = 5905-5) 2.5 % EOS % (test code = 713-8) 0.0 % BASO % (test code = 706-2) 0.1 % GRAN MAT x10^3(ANC) (test code = 4285152600) 18.69 10*3/uL 1.88-7.09 H IMM GRAN x10^3 (test code = 8920604834) 0.20 10*3/uL 0.00-0.06 H LYMPH x10^3 (test code = 731-0) 0.42 10*3/uL 1.32-3.29 L MONO x10^3 (test code = 742-7) 0.50 10*3/uL 0.33-0.92 EOS x10^3 (test code = 711-2) <0.03 0.03-0.39 L BASO x10^3 (test code = 704-7) <0.03 0.01-0.07 TOXIC CHANGES (test code = 803-7) Present A Lab Interpretation (test code = 16784-7) Abnormal [facility] METABOLIC PANEL (NA, K, CL, CO2, GLUCOSE, BUN, CREATININE, CA)2021-10-18 09:49:57* Test Item Value Reference Range Interpretation Comme nts NA (test code = 0315536258) 141 mmol/L 135-145 K (test code = 2293603029) 4.9 mmol/L 3.5-5.0 CL (test code = 8987479778) 107 mmol/L 98-108 CO2 TOTAL (test code = 0890480012) 26 mmol/L 23-31 AGAP (test code = 4585359332) 2-16 BUN (test code = 2425130651) 30 mg/dL 7-23 H GLUCOSE (test code = 1772175318) 166 mg/dL 70-110 H CREATININE (test code = 1158557327) 0.76 mg/dL 0.50-1.04 CALCIUM (test code = 1953848020) 8.2 mg/dL 8.6-10.6 L eGFR (test code = 2976926556) mL/min/1.73m2 LUCILLE (test code = LUCILLE) Association [...] imaging tests). Lab Interpretation (test code = 96906-6) Abnormal [facility]2022-02-15 09:49:57* Test Item Value Reference Range Interpretation Comme nts MAGNESIUM (test code = 9784328744) 3.0 mg/dL 1.7-2.4 H Lab Interpretation (test cod e = 26357-2) [facility]normal [facility] 09:49:57* Test Item Value Reference Range Interpretation Comme nts PHOSPHORUS (test code = 2367478777) 4.0 mg/dL 2.5-5.0 Lab Interpretation (test cod e = 91536-3) Normal [facility] (NA, K, CL, CO2, GLUCOSE, BUN, CREATININE, CA)2021-10-18 09:49:57* Test Item Value Reference Range Interpretation Comme nts NA (test code = 6376858501) 141 mmol/L 135-145 K (test code = 5481924433) 4.9 mmol/L 3.5-5.0 CL (test code = 7287578598) 107 mmol/L 98-108 CO2 TOTAL (test code = 6931761398) 26 mmol/L 23-31 AGAP (test code = 6471825571) 2-16 BUN (test code = 8581845546) 30 mg/dL 7-23 H GLUCOSE (test code = 0480736193) 166 mg/dL 70-110 H CREATININE (test code = 8894459176) 0.76 mg/dL 0.50-1.04 CALCIUM (test code = 0862187642) 8.2 mg/dL 8.6-10.6 L eGFR (test code = 9759242704) mL/min/1.73m2 LUCILLE (test code = LUCILLE) Association [...] imaging tests). Lab Interpretation (test code = 91003-8) [facility] 09:49:57* Test Item Value Reference Range Interpretation Comme nts MAGNESIUM (test code = 4636212622) 3.0 mg/dL 1.7-2.4 H Lab Interpretation (test cod e = 89945-1) [facility]normal [facility] 09:49:57* Test Item Value Reference Range Interpretation Comme nts PHOSPHORUS (test code = 3532632724) 4.0 mg/dL 2.5-5.0 Lab Interpretation (test cod e = 58381-6) Normal [facility] 1/2 AG-AB WITH [id number] 02:31:06* Test Item Value Reference Range Interpretation Comme nts HIV Semi-quantitative (test code = 04187-5) Negative Negative LUCILLE (test code = LUCILLE) Non-reactive for HIV-1 antigen and HIV-1/HIV-2 antibodies. ?No laboratory evidence of HIV infection. ?Re[facility] in 2-4 weeks if acute [facility] is suspected. [facility] [id number] 02:31:06* Test Item Value Reference Range Interpretation Comme [facility] HIV Semi-quantitative (test code = 14962-9) Negative Negative LUCILLE (test code = LUCILLE) Non-reactive for HIV-1 antigen and HIV-1/HIV-2 antibodies. ?No laboratory evidence of HIV infection. ?Repeat in 2-4 weeks if acute HIV infection is suspected. [facility] (NA, K, CL, CO2, GLUCOSE, BUN, CREATININE, CA)2021-10-18 01:11:26* Test Item Value Reference Range Interpretation Comme nts NA (test code = 0711778692) 141 mmol/L 135-145 K (test code = 1409746529) 4.6 mmol/L 3.5-5.0 CL (test code = 5637036035) 106 mmol/L 98-108 CO2 TOTAL (test code = 3556086120) 26 mmol/L 23-31 AGAP (test code = 0240149449) 2-16 BUN (test code = 7685506725) 28 mg/dL 7-23 H GLUCOSE (test code = 0893739117) 180 mg/dL 70-110 H CREATININE (test code = 3111055031) 0.82 mg/dL 0.50-1.04 CALCIUM (test code = 0175437495) 8.3 mg/dL 8.6-10.6 L eGFR (test code = 1226685252) mL/min/1.73m2 LUCILLE (test code = LUCILLE) Association [...] imaging tests). Lab Interpretation (test code = 06003-4) Abnormal [facility] METABOLIC PANEL (NA, K, CL, CO2, GLUCOSE, BUN, CREATININE, CA)2021-10-18 01:11:26* Test Item Value Reference Range Interpretation Comme nts NA (test code = 7097893422) 141 mmol/L 135-145 K (test code = 3895916279) 4.6 mmol/L 3.5-5.0 CL (test code = 0431058605) 106 mmol/L 98-108 CO2 TOTAL (test code = 2988626631) 26 mmol/L 23-31 AGAP (test code = 8508395441) 2-16 BUN (test code = 8167473950) 28 mg/dL 7-23 H GLUCOSE (test code = 6053761607) 180 mg/dL 70-110 H CREATININE (test code = 8252510261) 0.82 mg/dL 0.50-1.04 CALCIUM (test code = 6551707550) 8.3 mg/dL 8.6-10.6 L eGFR (test code = 1059742816) mL/min/1.73m2 LUCILLE (test code = LUCILLE) Association [...] imaging tests). Lab Interpretation (test code = 33800-2) Abnormal [facility] [id number] 22:06:03* Test Item Value Reference Range Interpretation Comme nts NT-proBNP (test code = 5674938230) 250 pg/mL See_Comment H [Automated message] The system which generated this result transmitted reference range: <=125. The reference range was not used to interpret this result as normal/abnormal. LUCILLE (test code = LUCILLE) Biotin has been reported to cause a negative bias, interpret results relative to patient's use of biotin. Lab Interpretation (test code = 27774-6) Abnormal [facility] [id number] 22:06:03* Test Item Value Reference Range Interpretation Comme nts NT-proBNP (test code = 9222470296) 250 pg/mL See_Comment H [Automated message] The system which generated this result transmitted reference range: <=125. The reference range was not used to interpret this result as normal/abnormal. LUCILLE (test code = LUCILLE) Biotin has been reported to cause a negative bias, interpret results relative to patient's use of biotin. Lab Interpretation (test code = 65229-6) Abnormal [facility]+COOX+NA+K+GLU+CA2+2021-10-17 21:42:22* Test Item Value Reference Range Interpretation Comme nts PH (test code = 2) 7.35-7.45 PCO2 (test code = 2504099869) See_Comment [Automated Misticoma SpearFysh] The system which generated this result transmitted reference range: 35 - 45 mmHg. The reference range was not used to interpret this result as normal/abnormal. PO2 (test code = 2798425404) See_Comment H [Automated messa ge] The system which generated this result transmitted reference range: 80 - 100 mmHg. The reference range was not used to interpret this result as normal/abnormal. HCO3 (test code = 1823821287) See_Comment [Automated messa ge] The system which generated this result transmitted reference range: 22 - 26 mEq/L. The reference range was not used to interpret this result as normal/abnormal. BE (test code = 7808640039) See_Comment [Automated messa ge] The system which generated this result transmitted reference range: -3.0 - 3.0 mEq/L. The reference range was not used to interpret this result as normal/abnormal. THB (test code = 2242569499) 13.0 g/dL 12.0-16.0 %O2HB (test code = 6008919928) 98.9 % 94.0-99.0 %COHB ART (test code = 0737842403) 0.3 % 0.0-1.5 %METHB ART (test code = 3478805503) 0.0 % 0.4-1.5 L VOL%O2 ART (test code = 4998161677) 18.5 % 15.0-23.0 NA (test code = 6820661525) 139 mmol/L 135-145 K+ (test code = 4761446367) 4.6 mmol/L 3.5-5.0 AC CA IONZ (test code = 8804003960) 4.50 mg/dL 4.50-5.30 GLUCOSE (test code = 8254160275) 166 mg/dL 70-110 H Lab Interpretation (test code = 00001-3) [facility]normal [facility]COOX+NA+K+GLU+CA2+2021-10-17 21:42:22* Test Item Value Reference Range Interpretation Comme nts PH (test code = 2) 7.35-7.45 PCO2 (test code = 8204973084) See_Comment [Automated messa ge] The system which generated this result transmitted reference range: 35 - 45 mmHg. The reference range was not used to interpret this result as normal/abnormal. PO2 (test code = 0316591412) See_Comment H [Automated messa ge] The system which generated this result transmitted reference range: 80 - 100 mmHg. The reference range was not used to interpret this result as normal/abnormal. HCO3 (test code = 4931657719) See_Comment [Automated messa ge] The system which generated this result transmitted reference range: 22 - 26 mEq/L. The reference range was not used to interpret this result as normal/abnormal. BE (test code = 2988334457) See_Comment [Automated messa ge] The system which generated this result transmitted reference range: -3.0 - 3.0 mEq/L. The reference range was not used to interpret this result as normal/abnormal. THB (test code = 9644212815) 13.0 g/dL 12.0-16.0 %O2HB (test code = 3584751515) 98.9 % 94.0-99.0 %COHB ART (test code = 9166939604) 0.3 % 0.0-1.5 %METHB ART (test code = 8340092169) 0.0 % 0.4-1.5 L VOL%O2 ART (test code = 7700121092) 18.5 % 15.0-23.0 NA (test code = 1620396198) 139 mmol/L 135-145 K+ (test code = 0268097413) 4.6 mmol/L 3.5-5.0 AC CA IONZ (test code = 3218837774) 4.50 mg/dL 4.50-5.30 GLUCOSE (test code = 5984068173) 166 mg/dL 70-110 H Lab Interpretation (test code = 81311-5) Abnormal [facility] WITH [id number] 11:01:03* Test Item Value Reference Range Interpretation [...] 33.2 g/dL 31.6-35.1 RDW-SD (test code = 37910-5) 44.5 fL 39.0-49.9 RDW-CV (test code = 788-0) 14.1 % 12.0-15.5 PLT (test code = 777-3) See_Comment [Automated message] The system which generated this result transmitted reference range: 166 - 358 10*3/?L. The reference range was not used to interpret this result as normal/abnormal. MPV (test code = 96814-3) 11.0 fL 9.5-12.9 NRBC/100 WBC (test code = 3320493552) See_Comment [Automated message] The system which generated this result transmitted reference range: 0.0 - 10.0 /100 WBCs. The reference range was not used to interpret this result as normal/abnormal. NRBC x10^3 (test code = 1146802516) <0.01 See_Comment [Automated message] The system which generated this result transmitted reference range: 10*3/?L. The reference range was not used to interpret this result as normal/abnormal. GRAN MAT (NEUT) % (test code = 770-8) 91.6 % IMM GRAN % (test code = 1403798438) 1.40 % LYMPH % (test code = 736-9) 5.5 % MONO % (test code = 5905-5) 1.4 % EOS % (test code = 713-8) 0.0 % BASO % (test code = 706-2) 0.1 % GRAN MAT x10^3(ANC) (test code = 8173218528) 17.75 10*3/uL 1.88-7.09 H IMM GRAN x10^3 (test code = 2605884551) 0.27 10*3/uL 0.00-0.06 H LYMPH x10^3 (test code = 731-0) 1.06 10*3/uL 1.32-3.29 L MONO x10^3 (test code = 742-7) 0.28 10*3/uL 0.33-0.92 L EOS x10^3 (test code = 711-2) <0.03 0.03-0.39 L BASO x10^3 (test code = 704-7) <0.03 0.01-0.07 TOXIC CHANGES (test code = 803-7) Present A Lab Interpretation (test code = 64643-5) Abnormal [facility] WITH [id number] 11:01:03* Test Item Value Reference Range Interpretation [...] 33.2 g/dL 31.6-35.1 RDW-SD (test code = 03818-1) 44.5 fL 39.0-49.9 RDW-CV (test code = 788-0) 14.1 % 12.0-15.5 PLT (test code = 777-3) See_Comment [Automated message] The system which generated this result transmitted reference range: 166 - 358 10*3/?L. The reference range was not used to interpret this result as normal/abnormal. MPV (test code = 77340-3) 11.0 fL 9.5-12.9 NRBC/100 WBC (test code = 8538534089) See_Comment [Automated message] The system which generated this result transmitted reference range: 0.0 - 10.0 /100 WBCs. The reference range was not used to interpret this result as normal/abnormal. NRBC x10^3 (test code = 4039171289) <0.01 See_Comment [Automated message] The system which generated this result transmitted reference range: 10*3/?L. The reference range was not used to interpret this result as normal/abnormal. GRAN MAT (NEUT) % (test code = 770-8) 91.6 % IMM GRAN % (test code = 5978684731) 1.40 % LYMPH % (test code = 736-9) 5.5 % MONO % (test code = 5905-5) 1.4 % EOS % (test code = 713-8) 0.0 % BASO % (test code = 706-2) 0.1 % GRAN MAT x10^3(ANC) (test code = 0864980806) 17.75 10*3/uL 1.88-7.09 H IMM GRAN x10^3 (test code = 8800790260) 0.27 10*3/uL 0.00-0.06 H LYMPH x10^3 (test code = 731-0) 1.06 10*3/uL 1.32-3.29 L MONO x10^3 (test code = 742-7) 0.28 10*3/uL 0.33-0.92 L EOS x10^3 (test code = 711-2) <0.03 0.03-0.39 L BASO x10^3 (test code = 704-7) <0.03 0.01-0.07 TOXIC CHANGES (test code = 803-7) Present A Lab Interpretation (test code = 47877-6) Abnormal [facility] METABOLIC PANEL (NA, K, CL, CO2, GLUCOSE, BUN, CREATININE, CA)2021-10-17 10:54:32* Test Item Value Reference Range Interpretation Comme nts NA (test code = 4904896725) 135 mmol/L 135-145 K (test code = 7715306082) 5.2 mmol/L 3.5-5.0 H Slight hemolysis CL (test code = 1325136943) 101 mmol/L 98-108 CO2 TOTAL (test code = 1779721860) 27 mmol/L 23-31 AGAP (test code = 6644176911) 2-16 BUN (test code = 4482847795) 21 mg/dL 7-23 Slight hemolysis GLUCOSE (test code = 7784423630) 153 mg/dL 70-110 H CREATININE (test code = 2080871974) 0.71 mg/dL 0.50-1.04 CALCIUM (test code = 4180910190) 8.3 mg/dL 8.6-10.6 L eGFR (test code = 3179872392) mL/min/1.73m2 LUCILLE (test code = LUCILLE) Association [...] imaging tests). Lab Interpretation (test code = 04551-2) [facility] Test Item Value Reference Range Interpretation Comme nts MAGNESIUM (test code = 3978220271) 2.2 mg/dL 1.7-2.4 Lab Interpretation (test cod e = 28258-6) [facility] 10:54:32* Test Item Value Reference Range Interpretation Comme nts PHOSPHORUS (test code = 0468381674) 5.9 mg/dL 2.5-5.0 H Lab Interpretation (test cod e = 08418-8) [facility] (NA, K, CL, CO2, GLUCOSE, BUN, CREATININE, CA)2021-10-17 10:54:32* Test Item Value Reference Range Interpretation Comme nts NA (test code = 4554268109) 135 mmol/L 135-145 K (test code = 4131162893) 5.2 mmol/L 3.5-5.0 H Slight hemolysis CL (test code = 7463258750) 101 mmol/L 98-108 CO2 TOTAL (test code = 1882295524) 27 mmol/L 23-31 AGAP (test code = 4547905710) 2-16 BUN (test code = 2014896174) 21 mg/dL 7-23 Slight hemolysis GLUCOSE (test code = 2972638425) 153 mg/dL 70-110 H CREATININE (test code = 6800353155) 0.71 mg/dL 0.50-1.04 CALCIUM (test code = 7529836809) 8.3 mg/dL 8.6-10.6 L eGFR (test code = 5134603086) mL/min/1.73m2 LUCILLE (test code = LUCILLE) Association [...] imaging tests). Lab Interpretation (test code = 43659-3) [facility] 10:54:32* Test Item Value Reference Range Interpretation Comme nts MAGNESIUM (test code = 7532277670) 2.2 mg/dL 1.7-2.4 Lab Interpretation (test cod e = 73214-5) [facility] 10:54:32* Test Item Value Reference Range Interpretation Comme nts PHOSPHORUS (test code = 6771653739) 5.9 mg/dL 2.5-5.0 H Lab Interpretation (test cod e = 34785-5) Abnormal [facility] [id number] 10:53:06* Test Item Value Reference Range Interpretation Comme nts ESR (test code = 2221744222) See_Comment H [Automated messa ge] The system which generated this result transmitted reference range: 0 - 20 mm/HR. The reference range was not used to interpret this result as normal/abnormal. Lab Interpretation (test code = 63587-9) Abnormal [facility] [id number] 10:53:06* Test Item Value Reference Range Interpretation Comme nts ESR (test code = 7609487143) See_Comment H [Automated messa ge] The system which generated this result transmitted reference range: 0 - 20 mm/HR. The reference range was not used to interpret this result as normal/abnormal. Lab Interpretation (test code = 49851-0) [facility] 11:13:[facility]* Test Item Value Reference Range Interpretation Comme nts MAGNESIUM (test code = 5279093662) 2.3 mg/dL 1.7-2.4 Lab Interpretation (test cod e = 23418-7) [facility] 11:13:05* Test Item Value Reference Range Interpretation Comme nts PHOSPHORUS (test code = 7012613789) 3.4 mg/dL 2.5-5.0 Lab Interpretation (test cod e = 06787-6) [facility] 11:13:05* Test Item Value Reference Range Interpretation Comme nts MAGNESIUM (test code = 8894937154) 2.3 mg/dL 1.7-2.4 Lab Interpretation (test cod e = 41577-9) [facility] 11:13:[facility]* Test Item Value Reference Range Interpretation Comme nts PHOSPHORUS (test code = 4118880958) 3.4 mg/dL 2.5-5.0 Lab Interpretation (test cod e = 20511-4) [facility] (NA, K, CL, CO2, GLUCOSE, BUN, CREATININE, CA)2021-10-16 11:13:04* Test Item Value Reference Range Interpretation Comme nts NA (test code = 1640488962) 135 mmol/L 135-145 K (test code = 9685274365) 4.6 mmol/L 3.5-5.0 CL (test code = 7824897345) 102 mmol/L 98-108 CO2 TOTAL (test code = 7718454796) 29 mmol/L 23-31 AGAP (test code = 6600380911) 2-16 BUN (test code = 2542576381) 24 mg/dL 7-23 H GLUCOSE (test code = 6054739777) 90 mg/dL 70-110 CREATININE (test code = 7309476954) 0.87 mg/dL 0.50-1.04 CALCIUM (test code = 1751543250) 8.0 mg/dL 8.6-10.6 L eGFR (test code = 3051728237) mL/min/1.73m2 LUCILLE (test code = LUCILLE) Association [...] imaging tests). Lab Interpretation (test code = 59079-0) Abnormal [facility] METABOLIC PANEL (NA, K, CL, CO2, GLUCOSE, BUN, CREATININE, [place])2021-10-16 11:13:04* Test Item Value Reference Range Interpretation Comme nts NA (test code = 0900701251) 135 mmol/L 135-145 K (test code = 7555523727) 4.6 mmol/L 3.5-5.0 CL (test code = 1831782072) 102 mmol/L 98-108 CO2 TOTAL (test code = 3555584319) 29 mmol/L 23-31 AGAP (test code = 2469021058) 2-16 BUN (test code = 1193498677) 24 mg/dL 7-23 H GLUCOSE (test code = 3362493970) 90 mg/dL 70-110 CREATININE (test code = 2469233437) 0.87 mg/dL 0.50-1.04 CALCIUM (test code = 2822080945) 8.0 mg/dL 8.6-10.6 L eGFR (test code = 7324873413) mL/min/1.73m2 LUCILLE (test code = LUCILLE) Association [...] imaging tests). Lab Interpretation (test code = 98107-7) [facility] LACTIC [id number] 10:59:55* Test Item Value Reference Range Interpretation Comme nts PH (test code = 2) 7.35-7.45 PCO2 (test code = 7247288622) See_Comment [Automated [employer]] The system which generated this result transmitted reference range: 35 - 45 mmHg. The reference range was not used to interpret this result as normal/abnormal. PO2 (test code = 1392051655) See_Comment L [Automated [employer]] The system which generated this result transmitted reference range: 80 - 100 mmHg. The reference range was not used to interpret this result as normal/abnormal. HCO3 (test code = 3908871464) See_Comment H [Automated messa ge] The system which generated this result transmitted reference range: 22 - 26 mEq/L. The reference range was not used to interpret this result as normal/abnormal. BE (test code = 9371012213) See_Comment [Automated messa ge] The system which generated this result transmitted reference range: -3.0 - 3.0 mEq/L. The reference range was not used to interpret this result as normal/abnormal. THB (test code = 5365377282) 13.7 g/dL 12.0-16.0 %O2HB (test code = 5989813422) 86.3 % 94.0-99.0 L %COHB ART (test code = 0584594415) 0.1 % 0.0-1.5 %METHB ART (test code = 4419749471) 0.1 % 0.4-1.5 L VOL%O2 ART (test code = 8356847967) 16.6 % 15.0-23.0 NA (test code = 1618358043) 135 mmol/L 135-145 K+ (test code = 5995885337) 4.6 mmol/L 3.5-5.0 AC CA IONZ (test code = 4387055794) 4.70 mg/dL 4.50-5.30 GLUCOSE (test code = 4314050104) 88 mg/dL 70-110 LACTIC ACID (test code = 7692815697) 1.41 mmol/L 0.50-2.20 QUES Lab Interpretation (test code = 17441-4) [facility] LACTIC [id number] 10:59:55* Test Item Value Reference Range Interpretation Comme nts PH (test code = 2) 7.35-7.45 PCO2 (test code = 2073085798) See_Comment [Automated messa ge] The system which generated this result transmitted reference range: 35 - 45 mmHg. The reference range was not used to interpret this result as normal/abnormal. PO2 (test code = 5197765506) See_Comment L [Automated messa ge] The system which generated this result transmitted reference range: 80 - 100 mmHg. The reference range was not used to interpret this result as normal/abnormal. HCO3 (test code = 1924405407) See_Comment H [Automated messa ge] The system which generated this result transmitted reference range: 22 - 26 mEq/L. The reference range was not used to interpret this result as normal/abnormal. BE (test code = 5418398308) See_Comment [Automated messa ge] The system which generated this result transmitted reference range: -3.0 - 3.0 mEq/L. The reference range was not used to interpret this result as normal/abnormal. THB (test code = 5484781482) 13.7 g/dL 12.0-16.0 %O2HB (test code = 2593481190) 86.3 % 94.0-99.0 L %COHB ART (test code = 9778662274) 0.1 % 0.0-1.5 %METHB ART (test code = 5058447839) 0.1 % 0.4-1.5 L VOL%O2 ART (test code = 8711031542) 16.6 % 15.0-23.0 NA (test code = 5728757519) 135 mmol/L 135-145 K+ (test code = 2432419852) 4.6 mmol/L 3.5-5.0 AC CA IONZ (test code = 4316151701) 4.70 mg/dL 4.50-5.30 GLUCOSE (test code = 2104772857) 88 mg/dL 70-110 LACTIC ACID (test code = 2633810504) 1.41 mmol/L 0.50-2.20 QUES Lab Interpretation (test code = 81790-9) Abnormal [facility] WITH [id number] 10:54:01* Test Item Value Reference Range Interpretation [...] 32.3 g/dL 31.6-35.1 RDW-SD (test code = 99055-0) 47.0 fL 39.0-49.9 RDW-CV (test code = 788-0) 14.6 % 12.0-15.5 PLT (test code = 777-3) See_Comment [Automated message] The system which generated this result transmitted reference range: 166 - 358 10*3/?L. The reference range was not used to interpret this result as normal/abnormal. MPV (test code = 73834-2) 10.5 fL 9.5-12.9 NRBC/100 WBC (test code = 0855709717) See_Comment [Automated message] The system which generated this result transmitted reference range: 0.0 - 10.0 /100 WBCs. The reference range was not used to interpret this result as normal/abnormal. NRBC x10^3 (test code = 1295737791) See_Comment [Automated message] The system which generated this result transmitted reference range: 10*3/?L. The reference range was not used to interpret this result as normal/abnormal. GRAN MAT (NEUT) % (test code = 770-8) 85.6 % IMM GRAN % (test code = 0296315959) 1.10 % LYMPH % (test code = 736-9) 9.7 % MONO % (test code = 5905-5) 3.0 % EOS % (test code = 713-8) 0.5 % BASO % (test code = 706-2) 0.1 % GRAN MAT x10^3(ANC) (test code = 4219673087) 12.97 10*3/uL 1.88-7.09 H IMM GRAN x10^3 (test code = 0941338377) 0.16 10*3/uL 0.00-0.06 H LYMPH x10^3 (test code = 731-0) 1.47 10*3/uL 1.32-3.29 MONO x10^3 (test code = 742-7) 0.45 10*3/uL 0.33-0.92 EOS x10^3 (test code = 711-2) 0.08 10*3/uL 0.03-0.39 BASO x10^3 (test code = 704-7) <0.03 0.01-0.07 Lab Interpretation (test code = 07652-9) Abnormal [facility] WITH FTTZ2904-54-99 10:54:01* Test Item Value Reference Range Interpretation [...] 32.3 g/dL 31.6-35.1 RDW-SD (test code = 07607-5) 47.0 fL 39.0-49.9 RDW-CV (test code = 788-0) 14.6 % 12.0-15.5 PLT (test code = 777-3) See_Comment [Automated message] The system which generated this result transmitted reference range: 166 - 358 10*3/?L. The reference range was not used to interpret this result as normal/abnormal. MPV (test code = 44043-8) 10.5 fL 9.5-12.9 NRBC/100 WBC (test code = 3339588772) See_Comment [Automated message] The system which generated this result transmitted reference range: 0.0 - 10.0 /100 WBCs. The reference range was not used to interpret this result as normal/abnormal. NRBC x10^3 (test code = 9414487628) See_Comment [Automated message] The system which generated this result transmitted reference range: 10*3/?L. The reference range was not used to interpret this result as normal/abnormal. GRAN MAT (NEUT) % (test code = 770-8) 85.6 % IMM GRAN % (test code = 4044228922) 1.10 % LYMPH % (test code = 736-9) 9.7 % MONO % (test code = 5905-5) 3.0 % EOS % (test code = 713-8) 0.5 % BASO % (test code = 706-2) 0.1 % GRAN MAT x10^3(ANC) (test code = 0345439367) 12.97 10*3/uL 1.88-7.09 H IMM GRAN x10^3 (test code = 7716243284) 0.16 10*3/uL 0.00-0.06 H LYMPH x10^3 (test code = 731-0) 1.47 10*3/uL 1.32-3.29 MONO x10^3 (test code = 742-7) 0.45 10*3/uL 0.33-0.92 EOS x10^3 (test code = 711-2) 0.08 10*3/uL 0.03-0.39 BASO x10^3 (test code = 704-7) <0.03 0.01-0.07 Lab Interpretation (test code = 72943-3) Abnormal [facility]-REACTIVE IQWRDSA9112-02-92 23:24:07* Test Item Value Reference Range Interpretation Comme nts CRP (test code = 5183693088) 22.1 mg/dL <1.0 H Lab Interpretation (test cod e = 60951-4) Abnormal [facility]-REACTIVE FEPXNQM3141-01-60 23:24:07* Test Item Value Reference Range Interpretation Comme nts CRP (test code = 4174051027) 22.1 mg/dL <1.0 H Lab Interpretation (test cod e = 07982-1) Abnormal [facility] J1309-48-49 23:21:42* Test Item Value Reference Range Interpretation Comments TROPONIN I (test code = 2712484662) 0.003 ng/mL See_Comment [Automated message] The system [...] of biotin. Lab Interpretation (test code = 38569-8) Normal [facility] N3565-67-29 23:21:42* Test Item Value Reference Range Interpretation Comments TROPONIN I (test code = 7651737256) 0.003 ng/mL See_Comment [Automated message] The system [...] of biotin. Lab Interpretation (test code = 14393-8) Normal [facility] METABOLIC PANEL (NA, K, CL, CO2, GLUCOSE, BUN, CREATININE, [place])2021-10-15 23:12:40* Test Item Value Reference Range Interpretation Comme nts NA (test code = 8646182523) 136 mmol/L 135-145 K (test code = 0965795509) 4.8 mmol/L 3.5-5.0 CL (test code = 7495652928) 104 mmol/L 98-108 CO2 TOTAL (test code = 2037241217) 26 mmol/L 23-31 AGAP (test code = 3102441969) 2-16 BUN (test code = 9714679306) 22 mg/dL 7-23 GLUCOSE (test code = 3486753783) 114 mg/dL 70-110 H CREATININE (test code = 2623629521) 0.77 mg/dL 0.50-1.04 CALCIUM (test code = 7220531730) 8.2 mg/dL 8.6-10.6 L eGFR (test code = 4901100182) mL/min/1.73m2 LUCILLE (test code = LUCILLE) Association [...] imaging tests). Lab Interpretation (test code = 57716-3) Abnormal [facility] METABOLIC PANEL (NA, K, CL, CO2, GLUCOSE, BUN, CREATININE, [place])2021-10-15 23:12:40* Test Item Value Reference Range Interpretation Comme nts NA (test code = 5871579576) 136 mmol/L 135-145 K (test code = 9947482808) 4.8 mmol/L 3.5-5.0 CL (test code = 9469658467) 104 mmol/L 98-108 CO2 TOTAL (test code = 7691755455) 26 mmol/L 23-31 AGAP (test code = 6103556769) 2-16 BUN (test code = 4513085289) 22 mg/dL 7-23 GLUCOSE (test code = 4673521549) 114 mg/dL 70-110 H CREATININE (test code = 0999627671) 0.77 mg/dL 0.50-1.04 CALCIUM (test code = 7201129039) 8.2 mg/dL 8.6-10.6 L eGFR (test code = 9704156879) mL/min/1.73m2 LUCILLE (test code = LUCILLE) Association [...] imaging tests). Lab Interpretation (test code = 63639-6) Abnormal [facility] [id number] 21:55:57* Test Item Value Reference Range Interpretation Comments TROPONIN I (test code = 0002748100) 0.003 ng/mL See_Comment [Automated message] The system [...] of biotin. Lab Interpretation (test code = 67188-1) Normal [facility] S4838-31-15 21:55:57* Test Item Value Reference Range Interpretation Comments TROPONIN I (test code = 5060466882) 0.003 ng/mL See_Comment [Automated message] The system [...] of biotin. Lab Interpretation (test code = 10366-9) [facility] 19:07:46* Test Item Value Reference Range Interpretation Comme nts Procalcitonin (test code = 2533057197) 0.15 ng/mL <0.08 H LUCILLE (test code [...] For further information please refer to:[email or web address] Lab Interpretation (test code = 93954-8) [facility]normal [facility]2022-[facility]-12 19:07:46* Test Item Value Reference Range Interpretation Comme nts Procalcitonin (test code = 1511270216) 0.15 ng/mL <0.08 H LUCILLE (test code [...] For further information please refer to:[email or web address] Lab Interpretation (test code = 15365-8) [facility]normal [facility] ZRD-QVN2602-58-12 18:31:24* Test Item Value Reference Range Interpretation Comme nts NT-proBNP (test code = 1627861082) 43 pg/mL See_Comment [Automated message] The system which generated this result transmitted reference range: <=125. The reference range was not used to interpret this result as normal/abnormal. LUCILLE (test code = LUCILLE) Biotin has been reported to cause a negative bias, interpret results relative to patient's use of biotin. Lab Interpretation (test code = 44159-2) Normal [facility] ZGX-UAF6444-23-12 18:31:24* Test Item Value Reference Range Interpretation Comme nts NT-proBNP (test code = 3637950986) 43 pg/mL See_Comment [Automated message] The system which generated this result transmitted reference range: <=125. The reference range was not used to interpret this result as normal/abnormal. LUCILLE (test code = LUCILLE) Biotin has been reported to cause a negative bias, interpret results relative to patient's use of biotin. Lab Interpretation (test code = 87566-8) Normal [facility]2022-02-12 09:17:58* Test Item Value Reference Range Interpretation Comme nts Procalcitonin (test code = 6732579147) 0.15 ng/mL <0.08 H LUCILLE (test code [...] For further information please refer to:[email or web address] Lab Interpretation (test code = 48827-2) [facility]normal [facility]2022-[facility]-12 09:17:58* Test Item Value Reference Range Interpretation Comme nts Procalcitonin (test code = 8838033615) 0.15 ng/mL <0.08 H LUCILLE (test code [...] For further information please refer to:[email or web address] Lab Interpretation (test code = 17276-6) Abnormal [facility] METABOLIC PANEL (NA, K, CL, CO2, GLUCOSE, BUN, CREATININE, [place])2021-10-15 08:36:11* Test Item Value Reference Range Interpretation Comme nts NA (test code = 5121631623) 139 mmol/L 135-145 K (test code = 6486889111) 5.5 mmol/L 3.5-5.0 H Slight hemolysis CL (test code = 3734095033) 104 mmol/L 98-108 CO2 TOTAL (test code = 8518310602) 29 mmol/L 23-31 AGAP (test code = 3415902534) 2-16 BUN (test code = 9640791849) 17 mg/dL 7-23 Slight hemolysis GLUCOSE (test code = 8015087134) 131 mg/dL 70-110 H CREATININE (test code = 2873963433) 0.77 mg/dL 0.50-1.04 CALCIUM (test code = 2218766940) 8.5 mg/dL 8.6-10.6 L eGFR (test code = 3142101674) mL/min/1.73m2 LUCILLE (test code = LUCILLE) Association [...] imaging tests). Lab Interpretation (test code = 85242-9) [facility]normal [facility] Aqfpi5364-33-33 08:36:11* Test Item Value Reference Range Interpretation Comme nts MAGNESIUM (test code = 5984940927) 2.4 mg/dL 1.7-2.4 Lab Interpretation (test cod e = 48503-7) Normal [facility] METABOLIC PANEL (NA, K, CL, CO2, GLUCOSE, BUN, CREATININE, [place])2021-10-15 08:36:11* Test Item Value Reference Range Interpretation Comme nts NA (test code = 5756389061) 139 mmol/L 135-145 K (test code = 0739632298) 5.5 mmol/L 3.5-5.0 H Slight hemolysis CL (test code = 8265140902) 104 mmol/L 98-108 CO2 TOTAL (test code = 2993639959) 29 mmol/L 23-31 AGAP (test code = 7963528012) 2-16 BUN (test code = 3049245594) 17 mg/dL 7-23 Slight hemolysis GLUCOSE (test code = 9134147695) 131 mg/dL 70-110 H CREATININE (test code = 8584706722) 0.77 mg/dL 0.50-1.04 CALCIUM (test code = 5970569829) 8.5 mg/dL 8.6-10.6 L eGFR (test code = 0046556783) mL/min/1.73m2 LUCILLE (test code = LUCILLE) Association [...] imaging tests). Lab Interpretation (test code = 67675-5) [facility]normal [facility] Ofbmu7509-60-23 08:36:11* Test Item Value Reference Range Interpretation Comme nts MAGNESIUM (test code = 5663624577) 2.4 mg/dL 1.7-2.4 Lab Interpretation (test cod e = 10749-3) Normal [facility]rop[facility] L1739-70-95 08:21:08* Test Item Value Reference Range Interpretation Comments TROPONIN I (test code = 0931851291) 0.005 ng/mL See_Comment [Automated message] The system [...] of biotin. Lab Interpretation (test code = 76789-1) Normal [facility]roponin D7847-14-27 08:21:08* Test Item Value Reference Range Interpretation Comments TROPONIN I (test code = 8941511638) 0.005 ng/mL See_Comment [Automated message] The system [...] of biotin. Lab Interpretation (test code = 37248-0) Normal [facility] WITH CHVY1521-24-15 07:37:26* Test Item Value Reference Range Interpretation [...] 33.0 g/dL 31.6-35.1 RDW-SD (test code = 54007-3) 47.4 fL 39.0-49.9 RDW-CV (test code = 788-0) 14.6 % 12.0-15.5 PLT (test code = 777-3) See_Comment [Automated message] The system which generated this result transmitted reference range: 166 - 358 10*3/?L. The reference range was not used to interpret this result as normal/abnormal. MPV (test code = 16980-1) 11.1 fL 9.5-12.9 NRBC/100 WBC (test code = 2984791285) See_Comment [Automated message] The system which generated this result transmitted reference range: 0.0 - 10.0 /100 WBCs. The reference range was not used to interpret this result as normal/abnormal. NRBC x10^3 (test code = 5493841108) <0.01 See_Comment [Automated message] The system which generated this result transmitted reference range: 10*3/?L. The reference range was not used to interpret this result as normal/abnormal. GRAN MAT (NEUT) % (test code = 770-8) 92.0 % IMM GRAN % (test code = 6772940986) 1.10 % LYMPH % (test code = 736-9) 5.0 % MONO % (test code = 5905-5) 1.8 % EOS % (test code = 713-8) 0.0 % BASO % (test code = 706-2) 0.1 % GRAN MAT x10^3(ANC) (test code = 4304691483) 20.65 10*3/uL 1.88-7.09 H IMM GRAN x10^3 (test code = 2732465453) 0.25 10*3/uL 0.00-0.06 H LYMPH x10^3 (test code = 731-0) 1.13 10*3/uL 1.32-3.29 L MONO x10^3 (test code = 742-7) 0.40 10*3/uL 0.33-0.92 EOS x10^3 (test code = 711-2) <0.03 0.03-0.39 L BASO x10^3 (test code = 704-7) 0.03 10*3/uL 0.01-0.07 Lab Interpretation (test code = 69248-6) Abnormal [facility] WITH BYHT5314-87-87 07:37:26* Test Item Value Reference Range Interpretation [...] 33.0 g/dL 31.6-35.1 RDW-SD (test code = 43331-8) 47.4 fL 39.0-49.9 RDW-CV (test code = 788-0) 14.6 % 12.0-15.5 PLT (test code = 777-3) See_Comment [Automated message] The system which generated this result transmitted reference range: 166 - 358 10*3/?L. The reference range was not used to interpret this result as normal/abnormal. MPV (test code = 98710-1) 11.1 fL 9.5-12.9 NRBC/100 WBC (test code = 2119062686) See_Comment [Automated message] The system which generated this result transmitted reference range: 0.0 - 10.0 /100 WBCs. The reference range was not used to interpret this result as normal/abnormal. NRBC x10^3 (test code = 2516305037) <0.01 See_Comment [Automated message] The system which generated this result transmitted reference range: 10*3/?L. The reference range was not used to interpret this result as normal/abnormal. GRAN MAT (NEUT) % (test code = 770-8) 92.0 % IMM GRAN % (test code = 8970381421) 1.10 % LYMPH % (test code = 736-9) 5.0 % MONO % (test code = 5905-5) 1.8 % EOS % (test code = 713-8) 0.0 % BASO % (test code = 706-2) 0.1 % GRAN MAT x10^3(ANC) (test code = 6374761375) 20.65 10*3/uL 1.88-7.09 H IMM GRAN x10^3 (test code = 3375581892) 0.25 10*3/uL 0.00-0.06 H LYMPH x10^3 (test code = 731-0) 1.13 10*3/uL 1.32-3.29 L MONO x10^3 (test code = 742-7) 0.40 10*3/uL 0.33-0.92 EOS x10^3 (test code = 711-2) <0.03 0.03-0.39 L BASO x10^3 (test code = 704-7) 0.03 10*3/uL 0.01-0.07 Lab Interpretation (test code = 14461-8) [facility]normal [facility]COOX+NA+K+GLU+CA2+2021-10-15 07:28:14* Test Item Value Reference Range Interpretation Comme nts PH (test code = 2) 7.35-7.45 PCO2 (test code = 7475050756) See_Comment [Automated messa ge] The system which generated this result transmitted reference range: 35 - 45 mmHg. The reference range was not used to interpret this result as normal/abnormal. PO2 (test code = 8276595482) See_Comment H [Automated messa ge] The system which generated this result transmitted reference range: 80 - 100 mmHg. The reference range was not used to interpret this result as normal/abnormal. HCO3 (test code = 7409675849) See_Comment [Automated messa ge] The system which generated this result transmitted reference range: 22 - 26 mEq/L. The reference range was not used to interpret this result as normal/abnormal. BE (test code = 3551671160) See_Comment [Automated messa ge] The system which generated this result transmitted reference range: -3.0 - 3.0 mEq/L. The reference range was not used to interpret this result as normal/abnormal. THB (test code = 5952232461) 13.1 g/dL 12.0-16.0 %O2HB (test code = 0934737707) 98.7 % 94.0-99.0 %COHB ART (test code = 1217712497) 0.4 % 0.0-1.5 %METHB ART (test code = 7594625304) 0.0 % 0.4-1.5 L VOL%O2 ART (test code = 9722501866) 18.5 % 15.0-23.0 QUES NA (test code = 7641719034) 138 mmol/L 135-145 K+ (test code = 2632676980) 5.0 mmol/L 3.5-5.0 AC CA IONZ (test code = 2211441874) 4.50 mg/dL 4.50-5.30 GLUCOSE (test code = 9161733351) 138 mg/dL 70-110 H Lab Interpretation (test code = 11332-0) [facility]X+NA+K+GLU+CA2+2021-10-15 07:28:14* Test Item Value Reference Range Interpretation Comme nts PH (test code = 2) 7.35-7.45 PCO2 (test code = 2757672952) See_Comment [Automated messa ge] The system which generated this result transmitted reference range: 35 - 45 mmHg. The reference range was not used to interpret this result as normal/abnormal. PO2 (test code = 1283790489) See_Comment H [Automated messa ge] The system which generated this result transmitted reference range: 80 - 100 mmHg. The reference range was not used to interpret this result as normal/abnormal. HCO3 (test code = 4810375058) See_Comment [Automated messa ge] The system which generated this result transmitted reference range: 22 - 26 mEq/L. The reference range was not used to interpret this result as normal/abnormal. BE (test code = 3068868204) See_Comment [Automated messa ge] The system which generated this result transmitted reference range: -3.0 - 3.0 mEq/L. The reference range was not used to interpret this result as normal/abnormal. THB (test code = 8237617011) 13.1 g/dL 12.0-16.0 %O2HB (test code = 6142919345) 98.7 % 94.0-99.0 %COHB ART (test code = 0693104181) 0.4 % 0.0-1.5 %METHB ART (test code = 4428350866) 0.0 % 0.4-1.5 L VOL%O2 ART (test code = 4993269218) 18.5 % 15.0-23.0 QUES NA (test code = 4688512891) 138 mmol/L 135-145 K+ (test code = 3196974599) 5.0 mmol/L 3.5-5.0 AC CA IONZ (test code = 9568355997) 4.50 mg/dL 4.50-5.30 GLUCOSE (test code = 0268087304) 138 mg/dL 70-110 H Lab Interpretation (test code = 55600-5) Abnormal [facility] Notes Date/Time Note Provider Source 2023-10-12 23:57:58 odUB7GFI349MdvLusG21 LcHIacHgzuzA8j zXUiecfyxu9XxAMcEzbVtq+6xH6fxN7675 -02-09T23:57:58 Pt was seen by provider and discharged 23147-8Ugjtvepnw department RzlvUK7394-44-18I72:58:17Emergency department NoteTXT1.2.840.523624.1.13.104.2.7 .2.233657|[id number] for patient ilnc25268-9JrmzYZXFHSGPSUACegmibyw d C-CDA narrative [id number] Wall RNUTMBUTMB - [address] Rl[id number] 05LRYZWMIVFWFSFUSSLSFMIP1839-28-20 T23:58:171.2.840.307395.1.72.3.15| 1.2.840.519549.1.13.104.2.7.2.7278 [id number] Kath Ha RN [facility] 2023-10-12 19:19:55 ZURpSYam8VZUSCYZwbeN CUs5V+ygIjoOG2 k7KSyeAh/rrtrv29Se8uPdpUYUDGdO4213 -02-09T19:19:55 Patient had a fall today fall happened at 4pm patient swelling and tenderness patient fell on hard dirt no black out, patient is in ED wheel chair having trouble walking. Patient is a.o x4 no respiratory distress. 10/10 pain scale 34890-6Yiwxbuiis department Triage jcnzWH5398-07-06S57:21:43Emergency department Triage noteTXT1.2.840.540502.1.13.104.2.7 .2.198226|[id number] for patient rxgu67584-9Gztqxamhd department NoteLNNARRATIVEFormatted C-CDA narrative [id number] Garcia RN[address] PpssRiwpeesziLaqptvgipOMTL63927659 28KKQPOFXLRTXYJKPLDNTDZA8900-13-03 T19:21:431.2.840.481997.1.72.3.15| 1.2.840.401339.1.13.104.2.7.2.7278 [id number] Steev Lujan RN [facility]
[2023-12-26] MEDS ORDERED: METHYLPREDNISOLONE 125 MG INJ ONE (15:20)
--- NOTE | 2023-12-26 15:29 | EDPHYS ---
Physician Documentation [facility] Name: Nancie Ordonez Age: 53 yrs Sex: Female : 1970 Arrival Date: 12/26/2023 Time: 14:44 Bed 12 Private MD: ED Physician Tiana Galarza HPI: 12/25 15:21 This 53 yrs old Black Female presents to ER via Ambulatory with complaints of Leg Pain. sp3 15:21 53-year-old female with a history of gout, arthritis, pneumonia, hypertension presents sp3 to the ED with chief complaints right-sided knee pain and swelling. Patient states that she has had increased ambulation recently. She denies any direct injury, fever, prior septic joint, or any other signs or symptoms on ROS at this time.. CSO: 15:14 LMP N/A - , Not mb9 Historical: - Allergies: 15:07 Ibuprofen; iw 15:07 Naproxen; iw - Home Meds: 15:19 amlodipine oral [Active]; mb9 - PMHx: 15:07 GERD; Gout; Arthritis; Pneumonia; Hypertension; iw - PSHx: 15:07 section; hernia repair; Neck sx; Right arm injury; iw - Immunization history:: Adult Immunizations. - Infectious Disease History:: Denies. - Social history:: Smoking status: Patient denies any tobacco usage or history of. ROS: 15:24 Constitutional: Negative for fever, chills, and weight loss, Eyes: Negative for injury, sp3 pain, redness, and discharge, Neck: Negative for injury, pain, and swelling, Cardiovascular: Negative for chest pain, palpitations, and edema, Respiratory: Negative for shortness of breath, cough, wheezing, and pleuritic chest pain, Abdomen/GI: Negative for abdominal pain, nausea, vomiting, diarrhea, and constipation, Back: Negative for injury and pain, Skin: Negative for injury, rash, and discoloration, Neuro: Negative for headache, weakness, numbness, tingling, and seizure, Psych: Negative for depression, anxiety, suicide ideation, homicidal ideation, and hallucinations, Allergy/Immunology: Negative for hives, rash, and allergies, 15:24 All other systems are negative, Exam: 15:25 Constitutional: This is a well developed, well nourished patient who is awake, alert, sp3 and in no acute distress. Head/Face: Normocephalic, atraumatic. Neck: Trachea midline, no thyromegaly or masses palpated, and no cervical lymphadenopathy. Supple, full range of motion without nuchal rigidity, or vertebral point tenderness. No Meningismus. Chest/axilla: Normal chest wall appearance and motion. Nontender with no deformity. No lesions are appreciated. Cardiovascular: Regular rate and rhythm with a normal S1 and S2. No gallops, murmurs, or rubs. Normal PMI, no JVD. No pulse deficits. Respiratory: Lungs have equal breath sounds bilaterally, clear to auscultation and percussion. No rales, rhonchi or wheezes noted. No increased work of breathing, no retractions or nasal flaring. Abdomen/GI: Soft, non-tender, with normal bowel sounds. No distension or tympany. No guarding or rebound. No evidence of tenderness throughout. Skin: Warm, dry with normal turgor. Normal color with no rashes, no lesions, and no evidence of cellulitis. Neuro: Awake and alert, GCS 15, oriented to person, place, time, and situation. Cranial nerves II-XII grossly intact. Motor strength 5/5 in all extremities. Sensory grossly intact. Cerebellar exam normal. Normal gait. Psych: Awake, alert, with orientation to person, place and time. Behavior, mood, and affect are within normal limits. 15:25 Musculoskeletal/extremity: Mild right-sided knee effusion noted. Not enough for drainage. Patient also tender over the distal lateral bursa of the knee. Distal neurovascular exam is normal. Patient is ambulatory.. Vital Signs: 15:05 Pulse 78; Resp 16; Temp 98.1; Pulse Ox 99% on R/A; Weight 81.19 kg; Height 5 ft. 3 in. iw ; Pain 10/10; 15:05 Body Mass Index 31.71 (81.19 kg, 160.02 cm) iw 15:05 Pain Scale: Adult iw MDM: 15:09 Patient medically screened. sp3 15:26 Data reviewed: vital signs, nurses notes. ED course: X-ray not indicated. Patient has sp3 mild knee effusion. She is allergic to ibuprofen and naproxen. She states she gets hives and mild swelling. Ketorolac therefore contraindicated. We will administer Solu-Medrol 125 mg IM x 1, placed patient in a knee immobilizer, crutches and follow-up with orthopedics. I am not highly suspicious of septic knee or any other critical process including DVT. Effusion is not large enough for drainage. Will DC home at this time.. 12/25 15:19 Order name: Knee Immobilizer; Complete Time: 15:23 sp3 12/25 15:19 Order name: Crutch Training; Complete Time: 15: sp3 Administered Medications: 15: Drug: MethylPREDNISolone Sodium Succinate IM 125 mg IM once Route: IM; Site: right mb9 deltoid; 15:40 Follow up: Response: No adverse reaction mb9 Disposition Summary: 12/26/23 15:28 Discharge Ordered Notes: Location: Home sp3 Condition: Stable sp3 Diagnosis - Knee effusion, right side, inflammatory arthritis sp3 Followup: sp3 - With: Lane Mcdowell MD - When: Upon discharge from the Emergency Department - Reason: Continuance of care Discharge Instructions: - Discharge Summary Sheet sp3 - Knee Effusion sp3 - How to Use a Knee Immobilizer sp3 Forms: - Medication Reconciliation Form sp3 - Antibiotic Education sp3 - Prescription Opioid Use sp3 - Patient Portal Instructions sp3 - Leadership Thank You Letter sp3 Prescriptions: - Prednisone 20 mg Oral Tablet - take 2 tablets ORAL route once daily for 5 days; 10 tablet; Refills: 0, Product sp3 Selection Permitted Signatures: Nancie Ware, RN Tiana Arshad MD MD sp3 Haylie Broderick RN RN mb9
--- NOTE | 2023-12-26 15:29 | ER ---
Nurse's Notes [facility] Name: Nancie Ordonez Age: 53 yrs Sex: Female : 1970 Arrival Date: 12/26/2023 Time: 14:44 Bed 12 Private MD: Diagnosis: Knee effusion, right side, inflammatory arthritis Presentation: 12/25 15:05 Chief complaint: Patient states: right knee pain since last night, has had previous iw injury to the leg years ago and has had to have it drained before. Coronavirus screen: At this time, the client does not indicate any symptoms associated with coronavirus-19. Ebola Screen: Patient negative for fever greater than or equal to 101.5 degrees Fahrenheit, and additional compatible Ebola Virus Disease symptoms Patient denies exposure to infectious person. Patient denies travel to an Ebola-affected area in the 21 days before illness onset. No symptoms or risks identified at this time. Initial Sepsis Screen: Does the patient meet any 2 criteria? No. Patient's initial sepsis screen is negative. Does the patient have a suspected source of infection? No. Patient's initial sepsis screen is negative. Risk Assessment: Do you want to hurt yourself or someone else? Patient reports no desire to harm self or others. Onset of symptoms was December 25, 2023. 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 - Infectious Disease History:: Denies. - Social history:: Smoking status: Patient denies any tobacco usage or history of. Screenin:13 [facility] ED Fall Risk Assessment (Adult) History of falling in the last 3 months, mb9 including since admission No falls in past 3 months (0 pts) Confusion or Disorientation No (0 pts) Intoxicated or Sedated No (0 pts) Impaired Gait No (0 pts) Mobility Assist Device Used No (0 pt) Altered Elimination No (0 pt) Score/Fall Risk Level 0 - 2 = Low Risk Oriented to surroundings, Maintained a safe environment, Educated pt \T\ family on fall prevention, incl call for assistance when getting out of bed, Assessed \T\ reinforced patient's understanding of fall precautions. Abuse screen: Denies threats or abuse. Nutritional screening: No deficits noted. Tuberculosis screening: No symptoms or risk factors identified. Assessment: 15:14 General: Appears in no apparent distress. Behavior is calm, cooperative. Pain: mb9 Complains of pain in right knee Pain radiates to right leg Quality of pain is described as throbbing, Pain began years ago. Is intermittent. Neuro: Smiley Agitation-Sedation Scale (RASS): 0 - Alert and Calm Level of Consciousness is awake, alert, obeys commands, Oriented to person, place, time, situation, Appropriate for age. Cardiovascular: Patient's skin is warm and dry. Respiratory: Airway is patent Respiratory effort is even, unlabored, Respiratory pattern is regular, symmetrical. GI: No signs and/or symptoms were reported involving the gastrointestinal system. : No signs and/or symptoms were reported regarding the genitourinary system. EENT: No signs and/or symptoms were reported regarding the EENT system. Derm: Skin is pink, warm \T\ dry. Musculoskeletal: Range of motion: intact in all extremities. Vital Signs: 15:05 Pulse 78; Resp 16; Temp 98.1; Pulse Ox 99% on R/A; Weight 81.19 kg; Height 5 ft. 3 in. iw ; Pain 10/10; 15:05 Body Mass Index 31.71 (81.19 kg, 160.02 cm) iw 15:05 Pain Scale: Adult iw ED Course: 14:46 Patient arrived in ED. rg4 14:47 Tiana Galarza MD is Attending Physician. sp3 15:06 Triage completed. iw 15:07 Arm band placed on. iw 15:13 Haylie Broderick RN is Primary Nurse. mb9 15:14 Placed in gown. Bed in low position. Call light in reach. Side rails up X 1. Provided mb9 Education on: press call light if needing anything. Client placed on continuous cardiac and pulse oximetry monitoring. NIBP monitoring applied. 15:15 No provider procedures requiring assistance completed. mb9 15:19 Patient did not have IV access during this emergency room visit. mb9 15:28 Lane Mcdowell MD is Referral Physician. sp3 15:39 Crutch training done. Knee immobilizer applied on right knee. mb9 Administered Medications: 15:23 Drug: MethylPREDNISolone Sodium Succinate IM 125 mg IM once Route: IM; Site: right mb9 deltoid; 15:40 Follow up: Response: No adverse reaction mb9 Medication: 15:14 VIS not applicable for this client. mb9 Outcome: 15:28 Discharge ordered by . sp3 15:39 Discharged to home with crutches, mb9 15:39 Condition: stable 15:39 Discharge instructions given to patient, Instructed on discharge instructions, follow up and referral plans. Demonstrated understanding of instructions, follow-up care, medications, Prescriptions given X 1, 15:40 Patient left the ED. mb9 Signatures: Nancie Ware, RN Radha Cortés rg4 Tiana Galarza MD MD sp3 Haylie Broderick RN RN mb9
[2023-12-26 15:48] VITALS: TEMP 98.1; O2SAT 99
== END 2023-12-26 15:40 | disposition home or self-care (01) ==
LOC: ER 14:44
DX: M05.861 Other rheumatoid arthritis with rheumatoid factor of right knee (principal); I10 Essential (primary) hypertension; Z88.6 Allergy status to analgesic agent
CPT/HCPCS: J2919

== ENCOUNTER 2024-07-03 13:25 | Emergency (ER) | payer BC, SELFPAY ==
--- OUTSIDE RECORDS SUMMARY | 2024-07-03 13:45 | XMS REPORT | Continuity of Care Document ---
Author Name Unknown Address [address] [facility] [address] [place] [address] [facility] Address [address] [facility] [address] [place] [address] Care Team Providers Care Bobbin Fixer Name Role Phone NONE, NONE Primary Care Physician Unavailab DR LINDSEY Gomez Attending Clinician Unavailable DR LINDSEY CAMERON Attending Clinician Unavailable JIMY CAMERON Attending Clinician Unavailab JIMY Lewis Attending Clinician Unavailab MK العراقي Attending Clinician Unavailable MK HERNANDEZ Attending Clinician Unavailable Gabriel Garcia MD Attending Clinician MAYURI RUSH Attending Clinician Unavailable Mayuri Rush MD Attending Clinician KAVITHA SHIPLEY Attending Clinician Unavailable Kavitha Lee Attending Clinician Doctor Unassigned, [place] Attending Clinician U navailable [email or web address]_S Attending Clinician Unavaila vignesh AMEZQUITA, DR MURDOCK Attending Clinician Unavail able ALIRIO, DR MURDOCK Attending Clinician Unavail able JUDITH, DR MANAN Jamison Attending Clinician Unavaila vignesh WONG, DR MANAN Jamison Attending Clinician Unavaila vignesh LEGGETT, DR TANG Attending Clinician Unavaila vignesh MUNIZ, DR SESAY Attending Clinician Unavailable OREN TOVAR Attending Clinician Unavailable Guy YI, Oren Attending Clinician [phone] ZELDA OLSEN Attending Clinician Unavailable Yuniel Mccray MD Attending Clinician [phone] Zelda Olsen MD Attending Clinician [phone] ANAYA KLINE Attending Clinician Unavailab pato Manzanares MD, Umm Attending Clinician [phone] Ced Hernández MD Attending Clinician [phone] Jaden Siddiqui ENP Attending Clinician + [phone] DR LORAINE MELO Attending Clinician Unav giacomo VITAL, DR GONZALES Attending Clinician GABRIEL Vital Attending Clinician Unavailable WILMAR MADISON Attending Clinician UnavailWILMAR Santos Attending Clinician Unavaila vignesh 1, [facility] Sleep Lab Bed Attending Clinician Unavail Wilmar Laurent MD Attending Clinician [phone] Only, [facility] Test Attending Clinician Unavailable BRO ANN Attending Clinician Unavailable Seth PAUL, Bro Attending Clinician +[phone] JADEN SIDDIQUI Attending Clinician Unavailable MAI DEL ROSARIO Attending Clinician Unavailab Mai Greco DO Attending Clinician +[phone] JACKLYN GUILLEN Attending Clinician Unavailable Jacklyn Guillen MD Attending Clinician + [phone] Una GRAJEDA, Marjan Holt Attending Clinician [phone] GELY HERNANDEZ Attending Clinician Unavailable Gely Hernandez MD Attending Clinician [phone] TEQWIMUAH, WILFRID Attending Clinician Unavailable Gonsalo YI, Maury Borja Attending Clinician [phone] Teqwimuah DO, Wilfrid Attending Clinician + Edelmira Coleman Attending Clinician +[phone] Evelin GRAJEDA, Any Fong Attending Clinician Unavail able FLASH KIMBALL Attending Clinician Unavailab pato Talavera MD, Blanca Attending Clinician [phone] Josie YI, Samir Attending Clinician [phone] Faraz Parada MD Attending Clinician [phone] Flash Kimball MD Attending Clinician [phone] GABRIEL SHAIKH Attending Clinician Unavailable GABRIEL SHAIKH Attending Clinician Unavailable DR LINDSEY CAMERON Admitting Clinician Unavailable GABRIEL GARCIA Admitting Clinician Unavailable MK HERNANDEZ Admitting Clinician Unavailable [email or web address]_Kadiyala_S Admitting Clinician Unavaila vignesh AMEZQUITA, DR MURDOCK Admitting Clinician Unavail able JUDITH, DR MANAN Jamison Admitting Clinician Unavaila vignesh LEGGETT, DR TANG Admitting Clinician Unavaila vignesh MUNIZ, DR SESAY Admitting Clinician Unavailable OREN TOVAR Admitting Clinician Unavailable ZELDA OLSEN Admitting Clinician Unavailable Zelda Olsen MD Admitting Clinician [phone] ANAYA KLINE Admitting Clinician Unavailab DR LORAINE Lugo Admitting Clinician Unajagdeep VITAL, DR GONZALES Admitting Clinician GABRIEL Vital Admitting Clinician Unavailable BRO ANN Admitting Clinician Unavailable JADEN SIDDIQUI Admitting Clinician Unavailable MAI DEL ROSARIO Admitting Clinician Unavailab JACKLYN Figueroa Admitting Clinician Unavailable GELY HERNANDEZ Admitting Clinician Unavailable Gely Hernandez MD Admitting Clinician [phone] TEQWIMUAH, WILFRID Admitting Clinician Unavailable Teqwimuah DO, Wilfrid Admitting Clinician + FARAZ PARADA Admitting Clinician Unavailable Faraz Parada MD Admitting Clinician [phone] Payers Payer Name Policy Type Policy Number Effective Date Expirati on Date Source [id number] 1959 00:00:00 ISABEL [employer] BL[employer] HMO [id number] 2023 00:00:00 0111 [id number] 2023 00:00:00 1014 [id number] 1959 00:00:00 Problems Condition Name Condition Details Condition Category Status Onset Date Resolution Date Last Treatment Date Treating Clinician Comments Source Abnormal EKG Abnormal EKG Disease Active 5-15 00:00: 00 [facility] Preop cardiovasc ular exam Preop cardiovasc ular exam Disease Active 5-15 00:00: 00 [facility] Chest pain, unspecifie d type Chest pain, unspecifie d type Disease Active 3-05 00:00: 00 [facility] SOB (shortness of breath) SOB (shortness of breath) Disease Active 2021-09 0-23 00:00: 00 [facility] Chest pain Chest pain Disease Active 2021-09 0-22 00:00: 00 [facility] Transient alteration of awareness Transient alteration of awareness Disease Active 6-25 00:00: 00 [facility] Transient alteration of awareness Transient alteration of awareness Disease Active 6-25 00:00: 00 [facility] Gastric ulcer Gastric ulcer Disease Active 6-22 00:00: 00 [facility] Pneumonia Pneumonia Disease Active 4-04 00:00: 00 [facility] Acute asthma exacerbati on Acute asthma exacerbati on Disease Active 4-02 00:00: 00 [facility] Sepsis Sepsis Disease Active 3-09 00:00: 00 [facility] Morbid obesity with body mass index of 40.0-49.9 Morbid obesity with body mass index of 40.0-49.9 Disease Active 2-14 00:00: 00 [facility] Obesity (BMI 30-39.9) Obesity (BMI 30-39.9) Disease Active 2- 00:00: 00 [facility] Acute hypoxemic respirator y failure Acute hypoxemic respirator y failure Disease Active 2- 00:00: 00 [facility] 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 Disease Active 2- 00:00: 00 [facility] Dyslipidem ia Dyslipidem ia Disease Active 2- 00:00: 00 [facility] Gastro-eso phageal reflux disease with esophagiti s, with bleeding Gastro-eso phageal reflux disease with esophagiti s, with bleeding Disease Active 2 00:00: 00 [facility] Generalize d anxiety disorder Generalize d anxiety disorder Disease Active 2 00:00: 00 [facility] Pain of cervical spine Pain of cervical spine Disease Active 2 00:00: 00 [facility] Depo-Prove ra contracept lloyd status Depo-Prove ra contracept lloyd status Disease Active 12-14 00:00: 00 [facility] Eczema Eczema Disease Active 04-15 00:00: 00 [facility] Essential hypertensi on Essential hypertensi on Disease Active 8 00:00: 00 [facility] Back pain Back pain Disease Active 2-06 00:00: 00 [facility] Anorgasmia of female Anorgasmia of female Disease Resolve d 2016-09 0-06 00:00: 00 2018-10-31 00:00:00 2018-10-31 15:39:56 [facility] Allergies, Adverse Reactions, Alerts Allergy Name Allergy Type Status Severity Reaction(s) Onset Date Inactive Date Treating Clinician Comments Source naproxen Propensi ty to adverse reaction to drug Active 03-31 00:00: 00 Dwayne Myers IBUPROFE N DRUG INGREDI Active Other-Cmnt 4-09 00:00: 00 [facility] Ibuprofe n Propensi ty to adverse reaction s Active Other - See comments 4-09 00:00: 00 ulcer [facility] IBUPROFE N-ACETAM INOPHEN DRUG Active SOB 2021-09 0-23 00:00: 00 [facility] Ibuprofe n-Acetam inophen Propensi ty to adverse reaction s Active Shortness of Breath 2021-09 0-23 00:00: 00 [facility] Naproxen - Oral Propensi ty to adverse reaction to drug Active 5-28 00:00: 00 Dwayne Niurka Myers SEAFOOD/ FISH Food Active High Anaphylaxis 4-02 00:00: 00 [facility] Seafood/ Fish Food Allergy Active Anaphylaxis 4- 00:00: 00 Pts tongue swells/ difficult y breathing [facility] Nsaids (Non-Madan roidal Anti-Inf lammator y Drug) Propensi ty to adverse reaction s Active Unknown - See comments 2- 00:00: 00 [facility] NSAIDS (NON-MADAN ROIDAL ANTI-INF LAMMATOR Y DRUG) Drug Class Active Unknown-Cmnt 2- 00:00: 00 [facility] Nsaids (Non-Madan roidal Anti-Inf lammator y Drug) Propensi ty to adverse reaction s Active Unknown - See comments 2- 00:00: 00 [facility] Nsaids (Non-Madan roidal Anti-Inf lammator y Drug) Propensi ty to adverse reaction s Active Unknown - See comments 2- 00:00: 00 [facility] Naproxen Propensi ty to adverse reaction to drug Inactiv e 2-22 00:00: 00 Dwayne Myers naproxen DA Active SV 2- 00:00: 00 [facility] Naproxen Drug Allergy Active Other - See comments 03-11 00:00: 00 Swelling of tongueSwe lling of the tongue [facility] Naproxen Propensi ty to adverse reaction s to drug Active Swelling 03-11 00:00: 00 Swelling of tongue [facility] NAPROXEN DRUG INGREDI Active High Swelling 2009-0 03-11 00:00: 00 [facility] Naproxen DA Active Unknown [facility] Ibuprofe n DA Active Unknown [facility] Social History Social Habit Start Date Stop Date Quantity Comments Source History SDOH Alcohol Std Drinks [facility] History SDOH Alcohol Binge [facility] History SDOH Alcohol Frequency [facility] History of Social function 2024-01-16 00:00:00 2024-01-16 00:00:00 [facility] Alcoholic beverage intake 2023-10-13 00:00:00 2023-10-13 00:00:00 Current drinker of alcohol (finding) [facility] Exposure to SARS-CoV-2 (event) 2022-11-30 00:00:00 2022-12-10 19:00:00 Not sure [facility] Tobacco Comment 2022-07-25 00:00:00 2022-07-25 00:00:00 30 years ago [facility] Cigarettes smoked current (pack per day) - Reported 2022-07-25 00:00:00 2022-07-25 00:00:00 [facility] Cigarette pack-years 2022-07-25 00:00:00 2022-07-25 00:00:00 [facility] Tobacco use and exposure 2022-07-25 00:00:00 2022-07-25 00:00:00 Smokeless tobacco non-user [facility] Alcohol intake 2021-11-10 00:00:00 2021-11-10 00:00:00 Current drinker of alcohol (finding) [facility] Education 2021-10-15 00:00:00 2021-10-15 00:00:00 [facility] Alcohol Comment 2016-12-14 00:00:00 2016-12-14 00:00:00 infrequent - family parties, wine, 12 oz/time [facility] History of tobacco use 1999 00:00:00 2001-12-14 00:00:00 Cigarette Smoker [facility] Sex assigned at 1970 00:00:00 1970 00:00:00 [facility] Smoking Status Start Date Stop Date Source Ex-smoker 2022-07-25 00:00:00 2022-07-25 00:00:00 [facility] Medications Ordered Medication Name Filled Medication Name Start Date Stop Date Current Medication? Ordering Clinician Indication Dosage Frequency Signature (SIG) Comments Components Source Premarin 1.25 mg tablet 2023-09 00:00: 00 Yes mg Dwayne Myers lisinopril 40 mg tablet 2023-09 00:00: 00 Yes 1mg Dwayne Myers ondansetron 4 mg disintegrat ing tablet 05-10 00:00: 00 Yes 1mg Dwayne Myers triamcinolo ne acetonide 0.1 % topical cream 05-01 00:00: 00 Yes 1% Dwayne Myers fluconazole 150 mg tablet 04-16 00:00: 00 Yes mg Dwayne Myers ondansetron 8 mg disintegrat ing tablet 03-31 00:00: 00 Yes 1mg Dwayne Myers dexamethaso ne (DECADRON PHOSPHATE) injection 10 mg 03-23 01:00: 00 03-23 00:52 :00 No 10mg 10 mg, Slow IV Push, ONCE, 1 dose, On 03/22/24 at 2000, Routine [facility] cefTRIAXone (ROCEPHIN) 1,000 mg in NaCl 0.9% (NS) 100 mL MINI-BAG 03-23 00:15: 00 03-23 01:38 :00 No 1000mg 1,000 mg, IV Piggyback, ONCE, 1 dose, On 03/22/24 at 1915, Administer over 30 Minutes, 100 mL, Reason for Anti-Infec tive: Documented Infection, Documented Infection Site: Urine, Duration of Therapy: Once (ED) [facility] HYDROcodone -acetaminop hen (NORCO 5) 5-325 mg tablet 1 tablet 03-23 00:00: 00 03-23 00:51 :00 No 1{tbl} 1 tablet, Oral, ONCE, 1 dose, On 03/22/24 at 1900, [facility] metoclopram luz HCl (REGLAN) injection 10 mg 03-22 23:45: 00 03-22 23:09 :00 No 10mg 10 mg, Slow IV Push, ONCE, 1 dose, On 03/22/24 at 1845, [facility] NaCl 0.9% (NS) bolus infusion 1,000 mL 03-22 23:30: 00 03-23 00:53 :00 No 1000mL at 999 mL/hr, 1,000 mL, IV Infusion, ONCE, 1 dose, On 03/22/24 at 1830, [facility] diphenhydrA MINE (BENADRYL) injection 25 mg 03-22 22:45: 00 03-22 23:07 :00 No 25mg 25 mg, Slow IV Push, ONCE, 1 dose, On 03/22/24 at 1745, STAT [facility] acetaminoph en (TYLENOL) tablet 1,000 mg 03-22 12:15: 00 03-22 13:04 :00 No 1000mg 1,000 mg, Oral, ONCE, 1 dose, On 03/22/24 at 0715, [facility] cephALEXin (KEFLEX) capsule 500 mg 03-22 12:00: 00 03-22 12:55 :00 No 500mg 500 mg, Oral, ONCE, 1 dose, On 03/22/24 at 0700, SE, Reason for Anti-Infec tive: Empiric Therapy for Suspected Infection, Empiric Therapy Site: HEENT, Duration of therapy: Once (ED) [facility] hydrOXYzine (ATARAX) tablet 25 mg 03-22 12:00: 00 03-22 12:55 :00 No 25mg 25 mg, Oral, ONCE, 1 dose, On 03/22/24 at 0700, [facility] acetaminoph en (TYLENOL ARTHRITIS PAIN) 650 mg CR tablet 03-22 00:00: 00 Yes [id number] 650mg Take 1 tablet by mouth every 8 (eight) hours as needed for Pain or Fever. [facility] Dextrometho rphan-Guaif enesin (ROBITUSSIN COUGH-CHEST YONG DM) 10-200 mg Cap 03-22 00:00: 00 Yes [id number] 1{capsu le} Take 1 capsule by mouth 3 (three) times daily as needed for Cough (Congestio n). [facility] loratadine 10 mg tablet 03-22 00:00: 00 Yes [id number] 10mg Take 1 tablet by mouth in the morning. [facility] vitamin C with ruy hips (VITAMIN C) 1,000 mg tablet 03-22 00:00: 00 Yes [id number] 1000mg Take 1 tablet by mouth in the morning. [facility] B Complex Vitamins tablet 03-22 00:00: 00 Yes [id number] 1{tbl} Take 1 tablet by mouth in the morning. [facility] ondansetron 4 mg tablet 03-22 00:00: 00 Yes [id number] 4mg Take 1 tablet by mouth every 8 (eight) hours as needed for Nausea and Vomiting (N/V). [facility] triamcinolo ne 0.5 % cream 03-22 00:00: 00 Yes [id number] Apply to area(s) 3 (three) times daily. [facility] molnupiravi r 200 mg capsule 03-22 00:00: 00 Yes [id number] 800mg Take 4 capsules by mouth every 12 (twelve) hours. [facility] butalbital- acetaminoph en-caff 50-325-40 mg tablet 03-22 00:00: 00 Yes [id number] 1{tbl} Take 1 tablet by mouth every 4 (four) hours as needed for Pain (scale 4-6). [facility] albuterol 90 mcg/actuati on inhaler 03-22 00:00: 00 Yes [id number] 2{puff} Inhale 2 Puffs every 4 (four) hours as needed for Wheezing or Shortness of Breath. [facility] cefdinir 300 mg capsule 7-20 00:00: 00 Yes [id number] 300mg Take 1 capsule by mouth in the morning and 1 capsule in the evening. [facility] oxyCODONE-a cetaminophe n 5-325 mg per tablet 01-15 09:33: 25 Yes every 4 (four) hours as needed. [facility] PREMARIN 1.25 mg tablet 01-15 09:33: 25 Yes 1.25mg Take 1 tablet by mouth in the morning. [facility] carvediloL 25 mg tablet 01-15 09:33: 25 Yes 25mg Take 1 tablet in the morning and 1 tablet in the evening. Take with meals. [facility] hydrOXYzine 25 mg tablet 01-15 09:33: 25 Yes 25mg Take 1 tablet by mouth. [facility] gabapentin 100 mg capsule 01-15 09:33: 25 Yes 100mg Take 1 capsule by mouth in the morning and 1 capsule in the evening. [facility] acetaminoph en-codeine (TYLENOL-CO DEINE #4) 300-60 mg tablet 01-15 09:33: 25 Yes 1{tbl} Take 1 tablet by mouth every 4 (four) hours as needed for Pain. [facility] celecoxib (CELEBREX) 50 mg capsule 01-15 09:33: 25 Yes 50mg Take 1 capsule by mouth in the morning. [facility] lisinopriL 40 mg tablet 01-15 09:30: 05 Yes 40mg Take 1 tablet by mouth in the morning. [facility] XARELTO 10 mg tablet 01-14 00:00: 00 Yes 10mg Take 1 tablet by mouth in the morning. [facility] docusate (COLACE) 100 mg capsule 01-14 00:00: 00 Yes daily. [facility] CYCLOBENZAP RINE HCL 10 MG TABS 2023-0 -14 00:00: 00 Yes Dwayne Myers XARELTO 10 MG TABS 0 -14 00:00: 00 Yes Dwayne Myers HYDROCO/APA P 5-325MG 0 -14 00:00: 00 Yes Dwayne Myers nitrofurant oin macrocrysta l 100 mg capsule 0 -08 00:00: 00 Yes 1mg Dwayne Myers lisinopril 40 mg tablet 0 - 00:00: 00 Yes 1mg Dwayne Myers melatonin 10 mg tablet 0 01-02 00:00: 00 Yes 1mg Dwayne Myers lisinopril 40 mg tablet 0 12-30 00:00: 00 Yes 1mg Dwayne Myers PREDNISONE 20 MG TABS 0 -24 00:00: 00 Yes Dwayne Myers OXYCOD/APAP 5-325MG 2023-0 - 00:00: 00 Yes Dwayne Myers Premarin 1.25 mg tablet 0 -08 00:00: 00 Yes mg Dwayne Myers lisinopril 30 mg tablet 0 08 00:00: 00 Yes 1mg Dwayne Myers NORTRIPTYLI NE HCL 25 MG 0 - 00:00: 00 Yes Dwayne Myers CELECOXIB 200 MG 0 -22 00:00: 00 Yes Dwayne Myers TAKE 1 TABLET BY MOUTH EVERY 8 HOURS NEEDED 2023-0 -22 00:00: 00 Yes Dwayne Myers TAKE 1 TABLET BY MOUTH DAILY 0 -22 00:00: 00 Yes 500 Dwayne Myers TAKE 1 TABLET BY MOUTH EVERY 8 HOURS NEEDED 2023-0 2-28 00:00: 00 Yes Dwayne Myers TAKE 1 TABLET BY MOUTH EVERY 8 HOURS NEEDED 2023-0 1-30 00:00: 00 Yes Dwayne Myers TAKE 1 TABLET BY MOUTH EVERY DAY 2023-0 -30 00:00: 00 Yes Dwayne Myers TAKE 1 CAPSULE BY MOUTH EVERY 8 HOURS. 2023-0 1-30 00:00: 00 Yes Dwayne Myers ALPRAZOLAM 0.5 MG TABS 0 1-27 00:00: 00 Yes Dwayne Myers TAKE 1/2 TO 1 TABLET BY MOUTH DAILY AT BEDTIME NEEDED 0 1-27 00:00: 00 Yes Dwayne Myers TAKE 1 TABLET DAILY. - 00:00: 00 Yes 20 Dwayne Myers TAKE 1 TABLET EVERY 12 HOURS DAILY. - 00:00: 00 01-15 00:00 :00 No 1 Dwayne Myers ONE TABLET ORALLY Q 8 HOURS PRN 0 09-25 00:00: 00 01-15 00:00 :00 No 8 Dwayne Myers TAKE 1 TABLET BY MOUTH EVERY 8 HOURS NEEDED 0 - 00:00: 00 Yes Dwayne Myers TAKE 1 TABLET BY MOUTH EVERY DAY 0 - 00:00: 00 Yes Dwayne Myers ONDANSETRON 4 MG TBDP -10 00:00: 00 Yes Dwayne Myers METHOCARBAM OL 500 MG TABS 1-03 00:00: 00 Yes Dwayne Myers CELECOXIB 200 MG 1-03 00:00: 00 Yes Dwayne Myers GABAPENTIN 300 MG 1-03 00:00: 00 Yes 300 Dwayne Myers NORTRIPTYLI NE HCL 25 MG 1- 00:00: 00 Yes 25 Dwayne Myers TAKE 1 CAPSULE BY MOUTH EVERYDAY AT BEDTIME 2022-09 2- 00:00: 00 Yes Dwayne Myers Premarin 1.25 mg tablet 2022-09 2-21 00:00: 00 Yes mg Dwayne Myers TAKE 1 TABLET BY MOUTH EVERY DAY NEEDED 2022-09 2-20 00:00: 00 Yes Dwayne Myers PREMPRO 0.625-5 2022-09 2-18 00:00: 00 Yes Dwayne Myers FAMOTIDINE 40MG 2022-09 2-17 00:00: 00 Yes [id number] Dwayne Myers TAKE 1 TABLET DAILY. 2022-09 2-15 00:00: 00 01-15 00:00 :00 No [id number] Dwayne Myers ARIPIPRAZOL E 5MG 2022-09 2-12 00:00: 00 Yes 5 Dwayne Myers OXYCOD/APAP 5-325MG 2022-09 2-03 00:00: 00 Yes Dwayne Myers PREMPRO .625-2.5 2022-09 00:00: 00 Yes Dwayne Myers GABAPENTIN 300MG 2022-09 00:00: 00 Yes Dwayne Myers ZOLPIDEM 10MG 2022-09 00:00: 00 Yes Dwayne Myers TAKE 1 CAPSULE BY MOUTH EVERYDAY AT BEDTIME 2022-09 00:00: 00 Yes Dwayne Myers TAKE 1 TABLET BY MOUTH EVERY DAY 2022-09 00:00: 00 Yes Dwayne Myers ALPRAZOLAM 0.5MG 2022-09 00:00: 00 Yes 500 wDayne Myers TAKE 1 TABLET BY MOUTH EVERY 8 HOURS NEEDED...DU E 12-2022-09 00:00: 00 Yes Dwayne Myers TAKE 1 TABLET DAILY. 2022-09 00:00: 00 01-15 00:00 :00 No [id number] Dwayne Myers METHOCARBAM 500MG 2022-09 00:00: 00 Yes [id number] Dwayne Myers TAKE 1 TABLET DAILY. 2022-09 00:00: 00 01-15 00:00 :00 No 20 Dwayne Myers TAKE 1 TABLET DAILY. 2022-09 00:00: 00 01-15 00:00 :00 No 20 Dwayne Myers OXYCOD/APAP 5-325MG 2022-09 00:00: 00 Yes Dwayne Myers ADMINISTER 1 SPRAY INTO ONE NOSTRIL. CALL 911. REPEAT AFTER 2-3 MIN IF NO OR MINIMAL RESPONSE 2022-09 00:00: 00 Yes Dwayne Myers METHOCARBAM 500MG 2022-09 030 00:00: 00 Yes Dwayne Myers TAKE 1 CAPSULE BY MOUTH EVERYDAY AT BEDTIME 2022-09 00:00: 00 Yes Dwayne Myers ZOLPIDEM 10MG 2022-09 00:00: 00 Yes [id number] Dwayne Myers ALPRAZOLAM 0.5MG 2022-09 0-24 00:00: 00 Yes 500 Dwayne Myers TAKE 1 TABLET DAILY. 2023-1 0-24 00:00: 00 01-15 00:00 :00 No 10 Dwayne Myers AMLODIPINE 5MG 2022-09 0-14 00:00: 00 Yes 5 Dwayne Myers ARIPIPRAZOL E 5MG 2022-09 0-11 00:00: 00 Yes Dwayne Myers SODIUM/POTA S MAGNESIU OSCAR 2022-09 0-10 00:00: 00 Yes Dwayne Myers PANTOPRAZOL E 40MG DR 2022-09 0-10 00:00: 00 Yes Dwayne Myers TAKE 1 TABLET DAILY. 2022-09 0-10 00:00: 00 01-15 00:00 :00 No 5 Dwayne Myers TAKE 1 TABLET DAILY. 2022-09 0-10 00:00: 00 01-15 00:00 :00 No 5 Dwayne Myers FUROSEMIDE 40MG 2022-09 0-09 00:00: 00 Yes [id number] Dwayne Myers OXYCOD/APAP 7.5-325 2022-09 0-05 00:00: 00 Yes Dwayne Myers PREDNISONE 50MG 2022-09 0-02 00:00: 00 Yes Dwayne Myers BUT/APAP/CA F 300MG 2022-09 0-02 00:00: 00 Yes Dwayne Myers CARISOPRODO L 350MG 2022-09 0-02 00:00: 00 Yes Dwayne Myers CELECOXIB 200MG 2022-09 0-02 00:00: 00 Yes [id number] Dwayne Myers AMLODIPINE 5MG 2022-09 0-02 00:00: 00 01-15 00:00 :00 No Dwayne Myers TAKE 1-2 TABLETS EVERY 4 HOURS NEEDED FOR HEADACHE 2022-09 0-01 00:00: 00 Yes Dwayne Myers TAKE 1 TABLET BY MOUTH EVERY DAY FOR 3 DAYS 2022-09 0-01 00:00: 00 Yes Dwayne Myers TAKE 1 TABLET BY MOUTH EVERY 6 HOURS NEEDED MUSCLE SPASM 2022-09 0-01 00:00: 00 Yes Dwayne Myers TAKE 1 TABLET BY MOUTH EVERY DAY 2022-09 0-01 00:00: 00 01-15 00:00 :00 No Dwayne Myers NIFEDIPIN CC 60MG ER 9-28 00:00: 00 Yes Dwayne Myers CARVEDILOL 25MG 2022-0 -28 00:00: 00 Yes Dwayne Myers ATORVASTATI N 40MG 2022-0 - 00:00: 00 Yes Dwayne Myers TAKE 1 TABLET BY MOUTH TWICE A DAY 2022-0 - 00:00: 00 Yes Dwayne Myers DULOXETINE 30MG DR 0 -20 00:00: 00 Yes Dwayne Myers TAKE 1 TABLET BY MOUTH EVERY DAY NEEDED 2022-0 - 00:00: 00 Yes Dwayne Myers TAKE 1/2 TO 1 TABLET BY MOUTH DAILY AT BEDTIME NEEDED 2022-0 - 00:00: 00 Yes Dwayne Myers FAMOTIDINE 40MG 2022-0 -18 00:00: 00 Yes Dwayne Myers ARIPIPRAZOL E 5MG 0 - 00:00: 00 Yes Dwayne Myers BACLOFEN 10MG 2022-0 - 00:00: 00 Yes Dwayne Myers OXYCOD/APAP 5-325MG 2022-0 -05 00:00: 00 Yes Dwayne Myers TAKE 1 CAPSULE BY MOUTH EVERY 8 HOURS 2022-0 -05 00:00: 00 Yes Dwayne Myers TAKE 1 TABLET BY MOUTH EVERY 12 HOURS 0 -05 00:00: 00 Yes Dwayne Myers CARISOPRODO L 350MG 0 - 00:00: 00 Yes Dwayne Myers METHYLPRED 4MG DPAK 0 - 00:00: 00 Yes Dwayne Myers APAP/CODEIN E 300-30MG 2022-0 - 00:00: 00 Yes Dwayne Myers PAROXETINE 10MG HCL 0 - 00:00: 00 Yes Dwayne Myers TAKE DIRECTED INSIDE THE PACKAGE 0 - 00:00: 00 Yes Dwayne Myers TAKE 1 TABLET BY MOUTH EVERY 6 HOURS NEEDED FOR MUSCLE SPAM 0 - 00:00: 00 Yes Dwayne Myers TAKE 1-2 TABLETS BY MOUTH EVERY 6 HOURS NEEDED ACUTE PAIN 2022-0 - 00:00: 00 Yes Dwayne Myers TAKE 1 TABLET DAILY. 2022-0 8-31 00:00: 00 -15 00:00 :00 No 50 Dwayne Myers ZOLPIDEM 10MG 2022-0 8-30 00:00: 00 Yes Dwayne Myers TAKE 1 TABLET BY MOUTH DAILY 0 8-28 00:00: 00 01-15 00:00 :00 No [id number] Dwayne Myers TAKE 1 TABLET DAILY. 0 8-24 00:00: 00 01-15 00:00 :00 No 50 Dwayne Myers TAKE 1/2 TABLET BY MOUTH DAILY 0 8-22 00:00: 00 01-15 00:00 :00 No 25 Dwayne Myers PREDNISONE 5MG 2022-0 8-17 00:00: 00 Yes Dwayne Myers CEFDINIR 300MG 2022-0 8-13 00:00: 00 Yes Dwayne Myers TAKE 1 CAPSULE BY MOUTH EVERY 12 HOURS FOR 7 DAYS 2022-0 8-12 00:00: 00 Yes Dwayne Myers CELECOXIB 200MG 2022-0 8-09 00:00: 00 Yes [id number] Dwayne Myers OXYCOD/APAP 5-325MG 2022-0 8-08 00:00: 00 Yes Dwayne Myers TAKE 1 TABLET BY MOUTH EVERY 12 HOURS 2022-0 8-08 00:00: 00 Yes Dwayne Myers BACLOFEN 10MG 2022-0 8-07 00:00: 00 Yes [id number] Dwayne Myers GABAPENTIN 300MG 2022-0 8-05 00:00: 00 Yes [id number] Dwayne Myers ALPRAZOLAM 0.5MG 2022-0 7-31 00:00: 00 Yes 500 Dwayne Myers DULOXETINE 30MG DR 2022-0 7-26 00:00: 00 Yes Dwayne Myers TAKE 5-10 MG BY MOUTH DAILY AT BEDTIME NEEDED 2022-0 7-26 00:00: 00 Yes Dwayne Myers TAKE 1/2 TABLET BY MOUTH DAILY 2022-0 7- 00:00: 00 Yes Dwayne Myers PREDNISONE 5MG 3-0 7-19 00:00: 00 Yes 5000 Dwayne Myers OXYCOD/APAP 5-325MG 3-0 7-14 00:00: 00 Yes Dwayne Myers TAKE 1 TABLET BY MOUTH EVERY 8 HOURS NEEDED 2022-0 7- 00:00: 00 Yes Dwayne Myers FUROSEMIDE 40MG 3-0 7-12 00:00: 00 Yes Dwayne Myers TAKE 1 TABLET BY MOUTH EVERY 12 HOURS 2022-0 7-11 00:00: 00 Yes Dwayne Myers GABAPENTIN 300MG 3-0 7-09 00:00: 00 Yes Dwayne Myers ALPRAZOLAM 0.5MG 2022-0 7- 00:00: 00 Yes 500 Dwayne Myers ARIPIPRAZOL E 5MG 2022-0 6-30 00:00: 00 Yes 5000 Dwayne Myers TAKE 1 TABLET BY MOUTH EVERY DAY NEEDED 2022-0 - 00:00: 00 Yes Dwayne Myers TAKE 1/2 TABLET BY MOUTH DAILY 2022-0 03-01 00:00: 00 Yes Dwayne Myers FAMOTIDINE 40MG 2022-0 6- 00:00: 00 Yes Dwayne Myers PREDNISONE 5MG 0 - 00:00: 00 Yes 5000 Dwayne Myers APAP/CODEIN E #4 0 02-22 00:00: 00 Yes Dwayne Myers CARVEDILOL 25MG 2022-0 6-20 00:00: 00 Yes Dwayne Myers NIFEDIPIN CC 60MG ER 0 6-20 00:00: 00 Yes Dwayne Myers CELECOXIB 200MG 2022-0 6-16 00:00: 00 Yes [id number] Dwayne Myers BACLOFEN 10MG 2022-0 6-13 00:00: 00 Yes [id number] Dwayne Myers TAKE 1 TABLET BY MOUTH EVERY 8 HOURS NEEDED FOR PAIN 2022-0 02-13 00:00: 00 Yes Dwayne Myers TAKE 1 CAPSULE BY MOUTH EVERY DAY 0 -13 00:00: 00 Yes Dwayne Myers GABAPENTIN 300MG 2022-0 6-12 00:00: 00 Yes Dwayne Myers PREMARIN VAG CRE 2022-0 6-05 00:00: 00 Yes Dwayne Myers INSERT 0.5 GRAM INTRAVAGINA LLY DAILY. ( 3 WEEKS ON. 1 WEEK OFF ). 0 02-04 00:00: 00 01-15 00:00 :00 No 625 Dwayne Myers TAKE 1 TABLET EVERY MORNING. 0 02-04 00:00: 00 2024- 05-15 00:00 :00 No 10 Dwayne Myers ARIPIPRAZOL E 5MG 3-0 6-03 00:00: 00 Yes 5000 Dwayne Myers APAP/CODEIN E #4 2022-0 - 00:00: 00 Yes Dwayne Myers TAKE 1 CAPSULE BY MOUTH EVERY 8 HOURS 2023-0 5-23 00:00: 00 Yes Dwayne Myers BACLOFEN 10MG 3-0 5-17 00:00: 00 Yes [id number] Dwayne Myers TAKE 1 CAPSULE BY MOUTH EVERY 8 HOURS 3-0 5-17 00:00: 00 Yes Dwayne Myers TAKE 1 CAPSULE BY MOUTH EVERY DAY 3-0 5-17 00:00: 00 Yes Dwayne Myers PREDNISONE 5MG 3-0 5-08 00:00: 00 Yes 5000 Dwayne Myers LISINOPRIL 20MG 3-0 5- 00:00: 00 2023- - 00:00 :00 No [id number] Dwayne Myers TAKE 1 TABLET BY MOUTH EVERY 12 HOURS NEEDED FOR PAIN 3-0 - 00:00: 00 Yes Dwayne Myers TAKE 1 TABLET EVERY MORNING. 2022-0 5- 00:00: 00 - 00:00 :00 No 10 Dwayne Myers ALPRAZOLAM 0.5MG 3-0 -26 00:00: 00 Yes 500 Dwayne Myers DULOXETINE 20MG DR 3-0 -26 00:00: 00 Yes Dwayne Myers TAKE 1 TABLET BY MOUTH EVERYDAY AT BEDTIME 3-0 -26 00:00: 00 Yes Dwayne Myers ARIPIPRAZOL E 5MG 3-0 -26 00:00: 00 Yes 5000 Dwayne Myers TAKE 1 TABLET BY MOUTH EVERY 8 HOURS 3-0 -25 00:00: 00 Yes Dwayne Myers BACLOFEN 10MG 3-0 -23 00:00: 00 Yes [id number] Dwayne Myers TAKE 1 TABLET BY MOUTH EVERY DAY FOR 90 DAYS 3-0 4-21 00:00: 00 Yes Dwayne Myers LISINOPRIL 40MG 3-0 4-21 00:00: 00 Yes Dwayne Myers TAKE 1 TABLET BY MOUTH TWICE A DAY WITH FOOD FOR 90 DAYS 2022-0 -21 00:00: 00 Yes Dwayne Myers SPIRONOLACT 50MG 2022-0 4-17 00:00: 00 Yes [id number] Dwayne Myers PREDNISONE 10MG 3-0 4-16 00:00: 00 Yes [id number] Dwayne Myers TAKE 1 TABLET BY MOUTH EVERY 8 HOURS 2022-0 -14 00:00: 00 Yes Dwayne Myers TAKE 1 TABLET BY MOUTH EVERY 12 HOURS 2022-0 -14 00:00: 00 Yes Dwayne Myers ONDANSETRON 4MG 2022-0 -14 00:00: 00 Yes 4000 Dwayne Myers TAKE 1 CAPSULE BY MOUTH EVERY DAY 0 12-15 00:00: 00 Yes Dwayne Myers ondansetron (ZOFRAN-ODT ) disintegrat ing tablet 4 mg 12-11 02:30: 00 12-11 01:43 :00 No 4mg 4 mg, Oral, ONCE, 1 dose, On 12/10/22 at 2130, [facility] predniSONE (DELTASONE) tablet 40 mg 12-11 01:45: 00 12-11 01:43 :00 No 40mg 40 mg, Oral, ONCE, 1 dose, On 12/10/22 at 204, [facility] HYDROcodone -acetaminop hen (NORCO 5) 5-325 mg tablet 1 tablet 12-11 01:45: 00 12-11 01:43 :00 No 1{tbl} 1 tablet, Oral, ONCE, 1 dose, On 12/10/22 at 2045, [facility] PREDNISONE 20MG 0 12-11 00:00: 00 Yes Dwayne Myers ONDANSETRON 4MG ODT 0 12-11 00:00: 00 Yes 4000 Dwayne Myers SPIRONOLACT 25MG 2022-0 10 00:00: 00 Yes [id number] Dwayne Myers TAKE 2 TABLETS BY MOUTH EVERY MORNING FOR 5 DAYS 2022-0 12-10 00:00: 00 Yes Dwayne Myers DISSOLVE 1 TABLET ON OR UNDER TONGUE EVERY 4 HOURS NEEDED FOR NAUSEA AND VOMITING 2022-0 - 00:00: 00 Yes Dwayne Myers ondansetron 4 mg disintegrat ing tablet 12-10 00:00: 00 Yes [id number] 4mg Take 1 tablet by mouth every 4 (four) hours as needed for Nausea and Vomiting (N/V). [facility] predniSONE 20 mg tablet 12-10 00:00: 00 12-16 04:59 :00 No [id number] 40mg Take 2 tablets by mouth in the morning for 5 days. [facility] PREDNISONE 5MG 12-04 00:00: 00 Yes 5000 Dwayne yMers TAKE 1 CAPSULE BY MOUTH EVERY DAY 11-28 00:00: 00 Yes Dwayne Myers TAKE 1 EVERY 8 HOURS 11-28 00:00: 00 Yes Dwayne Myers GABAPENTIN 300MG 11-28 00:00: 00 Yes [id number] Dwayne Myers DICLOFEN SOD 100MG ER 11-24 00:00: 00 Yes [id number] Dwayne Myers ALPRAZOLAM 0.5MG 11-23 00:00: 00 Yes Dwayne Myers DULOXETINE 20MG DR 11-23 00:00: 00 Yes Dwayne Myers TAKE 1/2 TABLET BY MOUTH DAILY 11-23 00:00: 00 Yes Dwayne Myers INSERT 0.5 GRAM INTRAVAGINA LLY DAILY. ( 3 WEEKS ON. 1 WEEK OFF ). 11-21 00:00: 00 01-15 00:00 :00 No 625 Dwayne Myers TAKE 1 TABLET BY MOUTH EVERY DAY FOR 30 DAYS 11-20 00:00: 00 Yes Dwayne Myers PREDNISONE 10MG 11-18 00:00: 00 Yes [id number] Dwayne Myers PANTOPRAZOL E 40MG DR 11-08 00:00: 00 Yes Dwayne Myers 1 TABLET(S) EVENING ORAL 11-08 00:00: 00 Yes Dwayne Myers PREDNISONE 5MG - 00:00: 00 Yes Dwayne Myers FUROSEMIDE 20MG - 00:00: 00 Yes Dwayne Myers carvediloL (COREG) tablet 3.125 mg 11-05 23:00: 00 Yes 3.125mg 3.125 mg, Oral, BID MEALS, First dose on Sun11/05/22 at 1700, Until Discontinu ed, Routine [facility] enoxaparin (LOVENOX) injection 40 mg 11-05 23:00: 00 Yes 40mg 40 mg, Subcutaneo us, DAILY, First dose on Sun11/05/22 at 1700, Until Discontinu ed, Routine [facility] hydrOXYzine 25 mg tablet 11-05 17:13: 13 Yes 25mg Take 1 tablet by mouth. [facility] lisinopriL 20 mg tablet 11-05 17:13: 13 Yes 20mg Take 1 tablet by mouth in the morning. [facility] gabapentin 100 mg capsule 11-05 17:13: 13 Yes 100mg Take 1 capsule by mouth in the morning and 1 capsule in the evening. [facility] acetaminoph en-codeine (TYLENOL-CO DEINE #4) 300-60 mg tablet 11-05 17:13: 13 Yes 1{tbl} Take 1 tablet by mouth every 4 (four) hours as needed for Pain. [facility] celecoxib (CELEBREX) 50 mg capsule 11-05 17:13: 13 Yes 50mg Take 1 capsule by mouth in the morning. [facility] amLODIPine (NORVASC) tablet 10 mg 11-05 15:00: 00 Yes 10mg 10 mg, Oral, DAILY, First dose on Sun11/05/22 at 0900, Until Discontinu ed, Routine [facility] metoprolol tartrate (LOPRESSOR) tablet 25 mg 11-05 14:00: 00 11-05 17:41 :07 No 25mg 25 mg, Oral, TID, First dose on Sun11/05/22 at 0800, Until Discontinu ed, Routine [facility] traMADoL (ULTRAM) tablet 50 mg 11-05 13:36: 11 11-07 13:35 :11 No 50mg 50 mg, Oral, Q6HPRN, Starting on Sun11/05/22 at 0736, Until Sun11/07/22 at 0735, Routine, Pain (scale 7-10) [facility] ondansetron (ZOFRAN (PF)) injection 4 mg 11-05 13:35: 52 11-07 13:34 :52 No 4mg 4 mg, Slow IV Push, Q6HPRN, Starting on Sun11/05/22 at 0735, Until Sun11/07/22 at 0734, Routine, Nausea and Vomiting (N/V) [facility] acetaminoph en (TYLENOL) tablet 650 mg 11-05 11:26: 43 Yes 650mg 650 mg, Oral, Q6HPRN, Starting on Sun11/05/22 at 0526, Until Discontinu ed, Routine, Pain (scale 1-3) [facility] zolpidem (AMBIEN) tablet 10 mg 11-05 11:25: 41 Yes 10mg 10 mg, Oral, QHSPRN, Starting on Sun11/05/22 at 0525, Until Discontinu ed, Routine, Insomnia [facility] ALPRAZolam (XANAX) tablet 1 mg 11-05 11:25: 00 Yes 1mg 1 mg, Oral, TIDPRN, Starting on Sun11/05/22 at 0525, Until Discontinu ed, Routine, Anxiety [facility] morpHINE (4 mg/mL) injection 4 mg 11-05 10:45: 00 11-05 10:08 :00 No 4mg 4 mg, Slow IV Push, ONCE, 1 dose, On Sun11/05/22 at 0445, [facility] proMETHazin e (PHENERGAN) 12.5 mg in NS 50 mL IV piggyback (CNR) 11-05 09:15: 00 11-05 10:05 :00 No 12.5mg 12.5 mg, IV Piggyback, at 200 mL/hr Administer over 15 Minutes, ONCE, 1 dose, [facility] 370-500 mL) injection 85 mL 11-05 08:55: 00 11-05 09:15 :00 No [id number] 85mL 85 mL, Intravenou s, ONCE, 1 dose, On 11/05/22 at 0315, Routine [facility] ondansetron (ZOFRAN (PF)) injection 4 mg 11-05 05:00: 00 11-05 07:12 :00 No 4mg 4 mg, Slow IV Push, ONCE, 1 dose, [facility]04[facility] 2300[facility] mor[facility] (4 mg/mL) injection 4 mg 11-05 05:00: 00 11-05 07:12 :00 No 4mg 4 mg, Slow IV Push, ONCE, 1 dose, On 11/04/22 at 2300, [facility] CARVEDILOL 11-05 00:00: 00 Yes Dwayne Myers carvediloL 3.125 mg tablet 05 00:00: 00 12-06 04:59 :00 No [id number] 3.125mg Take 1 tablet by mouth in the morning and 1 tablet in the evening. Take with meals. Do all this for 30 days. [facility] ONDANSETRON 4MG ODT 2-24 00:00: 00 Yes Dwayne Myers BACLOFEN 10MG 2-17 00:00: 00 Yes Dwayne Myers CELECOXIB 200MG 2022-0 2-16 00:00: 00 Yes Dwayne Myers DICLOFEN SOD 100MG ER 0 2-16 00:00: 00 Yes [id number] Dwayne Myers GABAPENTIN 300MG 2022-0 2-16 00:00: 00 Yes [id number] Dwayne Myers TAKE 1 EVERY 8 HOURS -16 00:00: 00 Yes Dwayne Myers PREDNISONE 10MG 2022-0 2-15 00:00: 00 Yes [id number] Dwayne Myers LISINOPRIL 20MG 2022-0 2- 00:00: 00 01-15 00:00 :00 No Dwayne Myers TAKE 1 TABLET DAILY. 10-02 00:00: 00 01-15 00:00 :00 No 20 Dwayne Myers APAP/CODEIN E #4 09-26 00:00: 00 Yes Dwayne Myers TAKE 1 TABLET DAILY. 09-25 00:00: 00 No 20 TAKE 1 TABLET DAILY. 09-25 00:00: 00 01-15 00:00 :00 No 20 Dwayne Myers METHOCARBAM 500MG 09-21 00:00: 00 Yes Dwayne Myers TAKE 1 TABLET BY MOUTH EVERY 8 HOURS NEEDED 09-21 00:00: 00 Yes Dwayne Myers TAKE 1 CAPSULE BY MOUTH EVERY 8 HOURS 09-21 00:00: 00 Yes Dwayne Myers TAKE 1 TABLET DAILY. 09-21 00:00: 00 No 10 METHOCARBAM 500MG 09-21 00:00: 00 No TAKE 1 TABLET DAILY. 09-21 00:00: 00 No 10 METHOCARBAM 500MG 09-21 00:00: 00 No TAKE 1 TABLET DAILY. 09-21 00:00: 00 01-15 00:00 :00 No 10 Dwayne Myers DICLOFEN SOD 100MG ER 18 00:00: 00 Yes Dwayne Myers TAKE 1 TABLET BY MOUTH EVERY DAY FOR 90 DAYS 18 00:00: 00 Yes Dwayne Myers DICLOFEN SOD 100MG ER -18 00:00: 00 No DICLOFEN SOD 100MG ER 18 00:00: 00 No TAKE 1 TABLET BY MOUTH EVERY DAY FOR 90 DAYS 18 00:00: 00 No FAMOTIDINE 40MG -13 00:00: 00 Yes Dwayne Myers SPIRONOLACT 25MG 0 - 00:00: 00 Yes Dwayne Myers TAKE 1 TABLET BY MOUTH EVERY 8 HOURS NEEDED 0 - 00:00: 00 Yes Dwayne Myers FAMOTIDINE 40MG - 00:00: 00 No SPIRONOLACT 25MG 2022-0 1-13 00:00: 00 No TAKE 1 TABLET BY MOUTH EVERY 8 HOURS NEEDED 2022-0 1-13 00:00: 00 No FAMOTIDINE 40MG 2022-0 1-13 00:00: 00 No SPIRONOLACT 25MG 2022-0 1-13 00:00: 00 No TAKE 1 TABLET BY MOUTH EVERY 8 HOURS NEEDED 2022-0 1- 00:00: 00 No TAKE 1 CAPSULE BY MOUTH ONE TIME PER WEEK 2022-0 1- 00:00: 00 Yes Dwayne Myers TAKE 1 CAPSULE BY MOUTH ONE TIME PER WEEK 2022-0 - 00:00: 00 No TAKE 1 CAPSULE BY MOUTH ONE TIME PER WEEK 2022-0 09-09 00:00: 00 No TAKE 1 TABLET BY MOUTH EVERY DAY 2021-1 00:00: 00 Yes Dwayne Bah Louis TAKE 1 TABLET BY MOUTH EVERY DAY 1 00:00: 00 No TAKE 1 TABLET BY MOUTH EVERY DAY 1 00:00: 00 No TAKE 1 TABLET BY MOUTH EVERY 8 HOURS 2021-1 10-29 00:00: 00 Yes Dwayne Bah Louis TAKE 1 TABLET BY MOUTH EVERY 8 HOURS NEEDED 2021-10-29 00:00: 00 Yes Dwayne Myers TAKE 1 TABLET BY MOUTH EVERY 8 HOURS 2021-09 00:00: 00 No TAKE 1 TABLET BY MOUTH EVERY 8 HOURS 1 10-29 00:00: 00 No TAKE 1 TABLET BY MOUTH AT BEDTIME NEEDED FOR PAIN 2021-1 10-25 00:00: 00 Yes Dwayne Bah Louis TAKE 1 TABLET BY MOUTH AT BEDTIME NEEDED FOR PAIN 1 10-25 00:00: 00 No TAKE 1 TABLET BY MOUTH AT BEDTIME NEEDED FOR PAIN 2021-1 10-25 00:00: 00 No VITAMIN D3 50,000IU 2021-09 00:00: 00 Yes Dwayne Niurka Louis CYCLOBENZAP RINE HYDROCHLO 10MG TAB 2021-09 00:00: 00 Yes Dwayne Myers TAKE 2 PUFFS BY MOUTH EVERY 4 TO 6 HOURS 2021-09 00:00: 00 Yes Dwayne Niurka oLuis TAKE 1 TABLET BY MOUTH TWICE A DAY FOR 30 DAYS 2021-09 00:00: 00 Yes Dwayne Myers TIZANIDINE 2MG TAB 2021-09 00:00: 00 Yes Dwayne Myers GABAPENTIN 300MG 2021-09 00:00: 00 Yes Dwayne Myers PLEASE SEE ATTACHED FOR DETAILED DIRECTIONS 2021-09 00:00: 00 Yes Dwayne Myers TAKE 1 CAPSULE BY MOUTH EVERY DAY 2021-09 00:00: 00 Yes Dwayne Myers ZOLPIDEM TARTRATE 10MG TAB 2021-09 00:00: 00 Yes Dwayne Myers SPIRONOLACT 50MG TAB 2021-09 00:00: 00 Yes Dwayne Myers BUSPIRONE HYDROCHLORI DE 5MG TAB 2021-09 00:00: 00 Yes Dwayne Myers BREO ELLIPTA 200-25 INH 2021-09 00:00: 00 Yes Dwayne Niurka Myers Dose Unknown 2021-09 00:00: 00 Yes Dwayne Myers TAKE 1 TABLET BY MOUTH EVERY DAY 2021-09 00:00: 00 Yes Dwayne Myers METFORMIN ER 500MG GP TAB 2021-09 00:00: 00 Yes Dwayne Myers PREDNISONE 10MG TAB 2021-09 00:00: 00 Yes Dwayne Myers LOSARTAN/HC T 50-12.5 TAB 2021-09 00:00: 00 Yes Dwayne Niurka Myers Dose Unknown 2021-09 00:00: 00 Yes Dwayne Niurka Myers ARIPIPRAZOL E 5MG TAB 2021-09 00:00: 00 Yes Dwayne Niurka Louis PLEASE SEE ATTACHED FOR DETAILED DIRECTIONS 2021-09 00:00: 00 Yes Dwayne Myers Dose Unknown 2021-09 00:00: 00 Yes Dwayne Niurka Louis TAKE 1 TABLET BY MOUTH EVERY DAY FOR 30 DAYS 2021-09 00:00: 00 Yes Dwayne Niurka Louis TAKE 1 TABLET BY MOUTH EVERY 8 HOURS 2021-09 00:00: 00 Yes Dwayne Niurka Louis TAKE 6 TABLETS ON DAY 1 DIRECTED ON PACKAGE AND DECREASE BY 1 TAB EACH DAY FOR A TOTAL OF 6 DAYS 2021-09 00:00: 00 Yes Dwayne Myers METHOCARBAM OL 750MG TAB 2021-09 2-14 00:00: 00 Yes Dwayne Myers HYDROCHLORO THIAZIDE 12.5MG 2021-09 2-14 00:00: 00 Yes Dwayne Bah Louis Dose Unknown 2021-09 2-14 00:00: 00 Yes Dwayne Bah Louis Dose Unknown 2021-09 2-14 00:00: 00 Yes 4 Dwayne Myers Dose Unknown 2021-09 2-14 00:00: 00 Yes Dwayne Myers ACETAMINOPH EN/CODEINE #3 TAB 2021-09 2-14 00:00: 00 Yes Dwayne Myers HYDROCODONE BITARTRATE/ AC 5-325MG TAB 2021-09 2-14 00:00: 00 Yes Dwayne Myers Dose Unknown 2021-09 2-14 00:00: 00 Yes Dwayne Myers TAKE 1 TABLET BY MOUTH TWICE A DAY NEEDED 2021- 2-14 00:00: 00 Yes 4 Dwayne Myers Dose Unknown 2021-09 2-14 00:00: 00 Yes 4 Dwayne Myers TAKE 1 TABLET BY MOUTH EVERY DAY 2021- 2-14 00:00: 00 Yes Dwayne Myers Dose Unknown 2021-09 2-14 00:00: 00 Yes Dwayne Niurka Myers Dose Unknown 2021-09 2-14 00:00: 00 Yes Dwayne Myers Dose Unknown 2021-09 2-14 00:00: 00 Yes Dwayne Myers Dose Unknown 2021-09 2-14 00:00: 00 Yes Dwayne Myers BENZONATATE 100MG 2021-09 2-14 00:00: 00 Yes 100 Dwayne Myers TAKE 1 TABLET BY MOUTH EVERY DAY 2021- 2-14 00:00: 00 Yes 4 Dwayne Myers Dose Unknown 2021-09 2-14 00:00: 00 Yes Dwayne Niurka Louis Dose Unknown 2021-09 2-14 00:00: 00 Yes Dwayne Niurka Louis Dose Unknown 2021-09 2-14 00:00: 00 Yes Dwayne Niurka Louis Dose Unknown 2021-09 2-14 00:00: 00 Yes Dwayne Niurka Louis Dose Unknown 2021-09 2-14 00:00: 00 Yes Dwayne F Louis Dose Unknown 2021-09 2-14 00:00: 00 Yes Dwayne Myers VITAMIN D3 50,000IU 2021-09 00:00: 00 No [...] 00:00: 00 No HYDROCHLORO THIAZIDE 12.5MG 2021-09 2-14 00:00: 00 No Dose Unknown 2021-09 2-14 00:00: 00 No Dose Unknown 2021-09 2-14 00:00: 00 No 4 Dose Unknown 2021-09 214 00:00: 00 No ACETAMINOPH EN/CODEINE #3 TAB 2021-09 2-14 00:00: 00 No HYDROCODONE BITARTRATE/ AC 5-325MG TAB 2021-09 2-14 00:00: 00 No Dose Unknown 2021-09 214 00:00: 00 No TAKE 1 TABLET BY MOUTH TWICE A DAY NEEDED 2021-09 2- 00:00: 00 No 4 Dose Unknown 2021-09 2-14 00:00: 00 No 4 TAKE 1 TABLET BY MOUTH EVERY DAY 2021-09 2 00:00: 00 No Dose Unknown 2021-09 2 00:00: 00 No Dose Unknown 2021-09 2 00:00: 00 No Dose Unknown 2021-09 2 00:00: 00 No Dose Unknown 2021-09 2 00:00: 00 No BENZONATATE 100MG 2021-09 2-14 00:00: 00 No 100 TAKE 1 TABLET BY MOUTH EVERY DAY 2021-09 2-14 00:00: 00 No 4 Dose Unknown 2021-09 2-14 00:00: 00 No Dose Unknown 2021-09 2 00:00: 00 No Dose Unknown 2021-09 2- 00:00: 00 No Dose Unknown 2021-09 2-14 00:00: 00 No VITAMIN D3 50,000IU 2021-09 2-14 00:00: 00 No CYCLOBENZAP RINE HYDROCHLO 10MG TAB 2021-09 2-14 00:00: 00 No TAKE 2 PUFFS BY MOUTH EVERY 4 TO 6 HOURS 2021-09 2-14 00:00: 00 No TAKE 1 TABLET BY MOUTH TWICE A DAY FOR 30 DAYS 2021-09 2-14 00:00: 00 No TIZANIDINE 2MG TAB 2021- 2-14 00:00: 00 No GABAPENTIN 300MG 2021-09 2-14 00:00: 00 No PLEASE SEE ATTACHED FOR [...] 2021-09 00:00: 00 No Dose Unknown 2021-09 2-14 00:00: 00 No TAKE 1 TABLET BY MOUTH TWICE A DAY NEEDED 2021-09 2-14 00:00: 00 No 4 Dose Unknown 2021-09 2-14 00:00: 00 No 4 TAKE 1 TABLET BY MOUTH EVERY DAY 2021-09 2-14 00:00: 00 No Dose Unknown 2021-09 2-14 00:00: 00 No Dose Unknown 2021-09 2-14 00:00: 00 No Dose Unknown 2021-09 2-14 00:00: 00 No Dose Unknown 2021-09 214 00:00: 00 No BENZONATATE 100MG 2021-09 2- 00:00: 00 No 100 TAKE 1 TABLET BY MOUTH EVERY DAY 2021-09 2 00:00: 00 No 4 Dose Unknown 2021-09 2-14 00:00: 00 No Dose Unknown 2021-09 2 00:00: 00 No Dose Unknown 2021-09 2-14 00:00: 00 No Dose Unknown 2021-09 2 00:00: 00 No ZOLPIDEM ER 12.5MG 2021-09 2- 00:00: 00 Yes Dwayne Niurka Louis ZOLPIDEM ER 12.5MG 2021-09 2- 00:00: 00 No ZOLPIDEM ER 12.5MG 2021-09 2- 00:00: 00 No TAKE 1 TABLET BY MOUTH EVERY 12 HOURS FOR 7 DAYS 2021-09 00:00: 00 Yes 4 Dwayne Niurka Louis TAKE 1 TABLET BY MOUTH TWICE A DAY 2021-09 00:00: 00 Yes Dwayne Myers METOPROL TAR 25MG 2021-09 00:00: 00 Yes Dwayne Myers TAKE 1 TABLET BY MOUTH EVERY 12 HOURS FOR 7 DAYS 2021-09 00:00: 00 No TAKE 1 TABLET BY MOUTH TWICE A DAY 2021-09 00:00: 00 No TAKE 1 TABLET BY MOUTH EVERY 12 HOURS FOR 7 DAYS 2021-09 00:00: 00 No 4 TAKE 1 TABLET BY MOUTH TWICE A DAY 2021-09 00:00: 00 No INJECT 1 ML INTRAMUSCUL JUDIE ONCE EVERY 3 MONTHS. 2021-09 00:00: 00 No 150 METOPROL TAR 25MG 2021-09 2 00:00: 00 No 25 TAKE 1 TABLET BY MOUTH EVERY 12 HOURS FOR 7 DAYS 2021-09 00:00: 00 No 4 TAKE 1 TABLET BY MOUTH TWICE A DAY 2021-09 00:00: 00 No INJECT 1 ML INTRAMUSCUL JUDIE ONCE EVERY 3 MONTHS. 2021-09 00:00: 00 No 150 METOPROL TAR 25MG 2021-09 00:00: 00 No INJECT 1 ML INTRAMUSCUL JUDIE ONCE EVERY 3 MONTHS. 2021-09 00:00: 00 01-15 00:00 :00 No 150 Dwayne Myers TAKE 1 TABLET BY MOUTH TWICE A DAY 2021-09 00:00: 00 Yes 5 Dwayne Myers CELECOXIB 200MG 2021-09 2 00:00: 00 Yes Dwayne Myers TAKE 1 TABLET BY MOUTH TWICE A DAY 2021-09 2 00:00: 00 No 5 TAKE 1 TABLET BY MOUTH TWICE A DAY 2021-09 2 00:00: 00 No 5 CELECOXIB 200MG 2021-09 2 00:00: 00 No TAKE 1 TABLET BY MOUTH TWICE A DAY 2021-09 2 00:00: 00 No 5 CELECOXIB 200MG 2021-09 2 00:00: 00 No TIZANIDINE 2MG 2021-09 2- 00:00: 00 Yes 2000 Dwayne Myers GABAPENTIN 300MG 2021-09 2 00:00: 00 Yes [id number] Dwayne Myers VITAMIN D3 50,000IU 2021-09 2 00:00: 00 Yes Dwayne Myers VITAMIN D3 50,000IU 2021-09 2 00:00: 00 No APAP/CODEIN E #4 2021-09 00:00: 00 Yes Dwayne Myers APAP/CODEIN E #4 2021-09 00:00: 00 No APAP/CODEIN E #4 2021-09 00:00: 00 No OMEPRAZOLE 20MG 2021-09 00:00: 00 Yes Dwayne Myers TAKE 1 CAPSULE BY MOUTH EVERY 8 HOURS 2021-09 00:00: 00 Yes Dwayne Myers TAKE 2 TABLETS BY MOUTH EVERY DAY 2021-09 00:00: 00 Yes Dwayne Myers TAKE 1 TABLET BY MOUTH EVERY 8 HOURS NEEDED 2021-09 00:00: 00 Yes Dwayne Myers TAKE 1 TABLET BY MOUTH EVERY 8 HOURS 2021-09 00:00: 00 Yes Dwayne Myers TAKE 1 CAPSULE BY MOUTH EVERY DAY 2021-09 00:00: 00 Yes Dwayne Myers OMEPRAZOLE 20MG 2021-09 00:00: 00 No TAKE [...] tablet 2021-09 14:01: 35 Yes 25mg Take 1 tablet by mouth. [facility] traMADoL (ULTRAM) tablet 100 mg 2021-09 04:05: 40 07-28 05:41 :29 No 100mg 100 mg, Oral, Q8HPRN, Starting on Sun07/26/22 at 2205, Until Sun07/27/22 at 2341, Routine, Pain (scale 4-6) [facility] TAKE 1 TABLET BY MOUTH IN THE MORNING AND 1 TABLET AT NOON AND 1 TABLET IN THE EVENING. 2021-09 00:00: 00 Yes Dwayne Myers metoprolol tartrate 25 mg tablet 2021-09 00:00: 00 Yes [id number] 25mg Take 1 tablet by mouth in the morning and 1 tablet at noon and 1 tablet in the evening. [facility] traMADoL 100 mg Tab 2021-09 00:00: 00 08-04 05:59 :00 No [id number] 100mg Take 100 mg by mouth every 8 (eight) hours as needed for Pain (scale 4-6) for up to 7 days. Indication s: acute pain [facility] metoprolol tartrate (LOPRESSOR) tablet 25 mg 2021-09 20:00: 00 Yes 25mg 25 mg, Oral, TID, First dose (after last modificati on) on Sun07/26/22 at 1400, Until Discontinu ed, Routine [facility] furosemide (LASIX) injection 40 mg 2021-09 18:00: 00 07-26 18:10 :00 No 40mg 40 mg, Slow IV Push, ONCE, 1 dose, On Sun07/26/22 at 1200, Routine [facility] metoprolol tartrate (LOPRESSOR) tablet 25 mg 2021-09 15:30: 00 07-26 17:08 :02 No 25mg 25 mg, Oral, BID, First dose on Sun07/26/22 at 0930, Until Discontinu ed, Routine [facility] enoxaparin (LOVENOX) injection 40 mg 2021-09 15:00: 00 Yes 40mg 40 mg, Subcutaneo us, DAILY, First dose on Sun07/26/22 at 0900, Until Discontinu ed, [facility]NORVASC[facility] 10 mg 2021-09 15:00: 00 07-26 15:21 :17 No 10mg 10 mg, Oral, DAILY, First dose on Sun07/26/22 at 0900, Until Discontinu ed, Routine [facility] methocarbam oL (ROBAXIN) tablet 500 mg 2021-09 14:00: 00 Yes 500mg 500 mg, Oral, BID, First dose on Sun07/26/22 at 0800, Until Discontinu ed, Routine [facility] ondansetron (ZOFRAN (PF)) injection 4 mg 2021-09 05:42: 35 Yes 4mg 4 mg, Slow IV Push, Q6HPRN, Starting on Sun07/25/22 at 2342, Until Discontinu ed, Routine, Nausea and Vomiting (N/V) [facility] FENTanyl PF (SUBLIMAZE (PF)) injection 50 mcg 2021-09 05:42: 32 07-27 05:41 :32 No 50ug 50 mcg, Slow IV Push, Q3HPRN, Starting on Sun07/25/22 at 2342, Until Sun07/26/22 at 2341, Routine, Pain (scale 7-10) [facility] traMADoL (ULTRAM) tablet 50 mg 2021-09 05:42: 29 07-27 04:05 :58 No 50mg 50 mg, Oral, Q8HPRN, Starting on Sun07/25/22 at 2342, Until Sun07/26/22 at 2205, Routine, Pain (scale 4-6) [facility] ondansetron (ZOFRAN (PF)) injection 4 mg 2021-09 05:00: 00 07-26 04:23 :00 No 4mg 4 mg, Slow IV Push, ONCE, 1 dose, On Sun07/25/22 at 2300, SE [facility] morpHINE (4 mg/mL) injection 4 mg 2021-09 05:00: 00 07-26 04:23 :00 No 4mg 4 mg, Slow IV Push, ONCE, 1 dose, On Sun07/25/22 at 2300, SE [facility] iopamidol (ISOVUE 370-500 mL) injection 100 mL 2021-09 04:15: 00 07-26 03:20 :00 No [id number] 100mL 100 mL, Intravenou s, ONCE, 1 dose, On Sun07/25/22 at 2215, Routine [facility] morpHINE (2 mg/mL) injection 2 mg 2021-09 02:45: 00 07-26 02:36 :00 No 2mg 2 mg, Slow IV Push, ONCE, 1 dose, On Sun07/25/22 at 2045, STAT [facility] TAKE 1 TABLET BY MOUTH IN THE MORNING AND 1 TABLET IN THE EVENING. 2021-09 00:00: 00 Yes Dwayne Myers TAKE 1 TABLET BY MOUTH IN THE MORNING AND 1 TABLET IN THE EVENING. 2021-09 00:00: 00 No TAKE 1 TABLET BY MOUTH IN THE MORNING AND 1 TABLET IN THE EVENING. 2021-09 00:00: 00 No metoprolol tartrate 25 mg tablet 2021-09 00:00: 00 07-27 00:00 :00 No [id number] 25mg Take 1 tablet by mouth in the morning and 1 tablet in the evening. [facility] TAKE 1/2 TABLET BY MOUTH TWICE DAILY NEEDED 2021-09 00:00: 00 Yes Dwayne Myers FLUOXETIN(P ) 40MG 2021-09 00:00: 00 Yes Dwayne Myers TAKE 1/2 TABLETS (2.5 MG) BY MOUTH DAILY 2021-09 00:00: 00 Yes Dwayne Myers TAKE 1/2 TABLET BY MOUTH TWICE DAILY NEEDED 2021-09 00:00: 00 No FLUOXETIN(P ) 40MG 2021-09 00:00: 00 No TAKE 1/2 TABLET BY MOUTH TWICE DAILY NEEDED 2021-09 00:00: 00 No FLUOXETIN(P ) 40MG 2021-09 00:00: 00 No BREO ELLIPTA 200-25 INH 2021-09 00:00: 00 Yes Dwayne Myers BREO ELLIPTA 200-25 INH 2021-09 00:00: 00 No BREO ELLIPTA 200-25 INH 2021-09 00:00: 00 No PANTOPRAZOL E 40MG DR 2021-09 00:00: 00 Yes [id number] Dwayne Myers ALPRAZOLAM 1MG 2021-09 00:00: 00 Yes Dwayne Myers ALPRAZOLAM 1MG 2021-09 00:00: 00 No ALPRAZOLAM 1MG 2021-09 00:00: 00 No PREDNISONE 10MG 2021-09 00:00: 00 Yes [id number] Dwayne Myers CELECOXIB 200MG 2021-09 00:00: 00 Yes [id number] Dwayne Myers TIZANIDINE 2MG 2021-09 00:00: 00 Yes Dwayne Myers GABAPENTIN 300MG 2021-09 00:00: 00 Yes [id number] Dwayne Myers TIZANIDINE 2MG 2021-09 00:00: 00 No TIZANIDINE 2MG 2021-09 00:00: 00 No ZOLPIDEM 10MG 2021-09 00:00: 00 Yes Dwayne Myers VITAMIN D3 50,000IU 2021-09 00:00: 00 Yes [id number] Dwayne Myers ZOLPIDEM 10MG 2021-09 00:00: 00 No ZOLPIDEM 10MG 2021-09 00:00: 00 No NALOXONE HCL [address]MG [facility] 2021-09 00:00: 00 Yes Dwayne Myers APAP/CODEIN E #4 2021-09 00:00: 00 Yes Dwayne Myers NALOXONE HCL [address]MG [facility] 2021-09 00:00: 00 No APAP/CODEIN E #4 2021-09 00:00: 00 No NALOXONE HCL [address]MG [facility] 2021-09 00:00: 00 No APAP/CODEIN E #4 2021-09 00:00: 00 No TAKE 1 TABLET BY MOUTH EVERY 8 HOURS 2021-- 00:00: 00 Yes Dwayne Myers TAKE 1 TABLET BY MOUTH EVERY 8 HOURS NEEDED 2021-09- 00:00: 00 Yes Dwayne Myers TAKE 1 CAPSULE BY MOUTH EVERY DAY 2021-- 00:00: 00 Yes Dwayne Myers OMEPRAZOLE 20MG 2021-09- 00:00: 00 Yes Dwayne Myers TAKE 1 CAPSULE BY MOUTH EVERY 8 HOURS 2021-- 00:00: 00 Yes Dwayne Myers DICLOFEN SOD 100MG ER 2021-09 0- 00:00: 00 Yes Dwayne Myers ATORVASTATI N 20MG 2021-09 0- 00:00: 00 Yes Dwayne Myers TAKE 1 TABLET BY MOUTH EVERY DAY WITH EVENING MEAL 2021-09 0- 00:00: 00 Yes Dwayne Myers USE 1 AMPULE IN NEBULIZER 3 TIMES A DAY 2021- 0- 00:00: 00 Yes Dwayne Myers TAKE 1 TABLET BY MOUTH EVERY DAY 2021-09 00:00: 00 Yes Dwayne Myers USE 1 AMPULE IN NEBULIZER 3 TIMES A DAY 2021-09 00:00: 00 No USE 1 AMPULE IN NEBULIZER 3 TIMES A DAY 2021-09 00:00: 00 No celecoxib (CELEBREX) 100 mg capsule 2021-09 06:18: 06-26 00:00 :00 No 100mg Take 100 mg by mouth 2 (two) times daily with meals. [facility] amLODIPine 10 mg tablet 2021-09 06:18: 06-26 00:00 :00 No 10mg Take 10 mg by mouth daily. [facility] FLUoxetine 10 mg capsule 2021-09 06:18: 06-26 00:00 :00 No 10mg Take 10 mg by mouth daily. [facility] traMADoL 100 mg capsule 2021-09 06:18: 06-26 00:00 :00 No 100mg Take 100 mg by mouth every 6 (six) hours as needed. [facility] famotidine (PEPCID AC) tablet 20 mg 2021-09 05:30: 00 Yes 20mg 20 mg, Oral, BID, First dose on Sun06/26/22 at 0030, Until Discontinu ed, Routine [facility] ceFEPIme (MAXIPIME) 1,000 mg in NaCl 0.9% [...] y
Durat ion of therapy: 72 hours [facility] furosemide (LASIX) injection 40 mg 2021-09 14:00: 00 Yes 40mg 40 mg, Slow IV Push, DAILY, First dose on Sun06/25/22 at 0900, Until Discontinu ed, Routine [facility] enoxaparin (LOVENOX) injection 40 mg 2021-09 14:00: 00 Yes 40mg 40 mg, Subcutaneo us, DAILY, First dose on Sun06/25/22 at 0900, Until Discontinu ed, Routine [facility] amLODIPine (NORVASC) tablet 10 mg 2021-09 14:00: 00 Yes 10mg 10 mg, Oral, DAILY, First dose on Sun06/25/22 at 0900, Until Discontinu ed, Routine [facility] azithromyci n (ZITHROMAX) tablet 500 mg 2021-09 14:00: 00 06-28 13:59 :00 No 500mg 500 mg, Oral, DAILY, 3 doses, First dose on Sun06/25/22 at 0900, Last dose on Sun06/27/22 at 0900, SE
Re ason for Anti-Infec tive: Empiric Therapy for Suspected Infection< br>Empiric Therapy Site: Respirator y
Durat ion of therapy: 72 hours [facility] ceFEPIme (MAXIPIME) 1,000 mg in NaCl 0.9% (NS) 50 mL MINI-BAG 2021-09 13:30: 00 06-25 14:00 :00 No 1000mg 1,000 mg, IV Piggyback, ONCE, 1 dose, On Sun06/25/22 at 0830, Administer over 30 Minutes, 50 mL
Reas on for Anti-Infec tive: Empiric Therapy for Suspected Infection< br>Empiric Therapy Site: Respirator y
Durat ion of therapy: 72 hours [facility] losartan (COZAAR) tablet 50 mg 2021-09 13:00: 00 Yes 50mg 50 mg, Oral, BID, First dose on Sun06/25/22 at 0800, Until Discontinu ed, Routine [facility] methylPREDN ISolone sod succ (SOLU-MEDRO L (PF)) injection 40 mg 2021-09 13:00: 00 Yes 40mg 40 mg, Slow IV Push, Q12H, First dose on 06/25/22 at 0800, Until Discontinu ed, Routine [facility] morpHINE (2 mg/mL) injection 2 mg 2021-09 11:02: 17 Yes 2mg 2 mg, Slow IV Push, Q6HPRN, Starting on 06/25/22 at 0602, Until Discontinu ed, Routine, Pain (scale 7-10) [facility] iopamidol (ISOVUE 370-500 mL) injection 100 mL 2021-09 07:59: 00 06-25 07:59 :00 No [id number] 100mL 100 mL, Intravenou s, ONCE, 1 dose, On 06/25/22 at 0315, Routine [facility] traMADoL (ULTRAM) tablet 50 mg 2021-09 07:36: 43 Yes 50mg 50 mg, Oral, Q6HPRN, Starting on 06/25/22 at 0236, Until Discontinu ed, Routine, Pain (scale 4-6) [facility] morpHINE (4 mg/mL) injection 4 mg 2021-09 05:15: 00 06-25 04:46 :00 No 4mg 4 mg, Slow IV Push, ONCE, 1 dose, On 06/25/22 at 0015, SE [facility] furosemide (LASIX) injection 40 mg 2021-09 04:30: 00 06-25 04:46 :00 No 40mg 40 mg, IV Push, ONCE, 1 dose, On 06/24/22 at 2330, SE [facility] ondansetron (ZOFRAN (PF)) injection 4 mg 2021-09 04:29: 13 Yes 4mg 4 mg, Slow IV Push, Q6HPRN, Starting on 06/24/22 at 2329, Until Discontinu ed, Routine, Nausea and Vomiting (N/V) [facility] acetaminoph en (TYLENOL) tablet 650 mg 2022-1 0-23 04:29: 07 Yes 650mg 650 mg, Oral, Q6HPRN, Starting on 06/24/22 at 2329, Until Discontinu ed, Routine, Pain (scale 1-3) [facility] PREDNISONE 20MG 2021-09 0-22 00:00: 00 Yes Dwayne Myers ALBUTEROL PA HFA 200 INH 2021-09 0-22 00:00: 00 Yes [id number] wDayne Myers ALBUTER 3ML 0.083% 2021-09 0-22 00:00: 00 Yes 83 Dwayne Myers AZITHROMYCI N 500MG 2021-09 0-22 00:00: 00 Yes [id number] Dwayne Myers TAKE 2 TABLETS BY MOUTH FOR 5 DAYS 2021-09 0-21 00:00: 00 Yes Dwayne Myers TAKE 1 CAPSULE BY MOUTH EVERY 8 HOURS NEEDED FOR COUGH 2021-09 0-21 00:00: 00 Yes Dwayne Myers BREO ELLIPTA 200-25 INH 2021-09 0-20 00:00: 00 Yes Dwayne Myers FUROSEMIDE 20MG 2021-09 0-17 00:00: 00 Yes Dwayne Myers SPIRONOLACT 25MG 2021-09 0-17 00:00: 00 Yes [id number] Dwayne Myers TAKE 1/2 TABLET BY MOUTH TWICE DAILY NEEDED 2021-09 0-17 00:00: 00 Yes Dwayne Myers FLUOXETIN(P ) 40MG 2021-09 0-15 00:00: 00 Yes [id number] Dwayne Myers GABAPENTIN 300MG 2021-09 0-13 00:00: 00 Yes [id number] Dwayne Myers VITAMIN D3 50,000IU 2021-09 0-13 00:00: 00 Yes [id number] Dwayne Myers PREDNISONE 10MG 2021-09 0-11 00:00: 00 Yes [id number] Dwayne Myers CELECOXIB 200MG 2021-09 0-11 00:00: 00 Yes Dwayne Myers ondansetron (ZOFRAN-ODT ) disintegrat ing tablet 4 mg 06-01 02:45: 00 06-01 01:44 :00 No 4mg 4 mg, Oral, ONCE, 1 dose, On 05/31/22 at 2145, SE [facility] HYDROcodone -acetaminop hen (NORCO) 10-325 mg tablet 1 tablet 06-01 02:45: 00 06-01 01:45 :00 No 1{tbl} 1 tablet, Oral, ONCE, 1 dose, On Sun05/31/22 at 2145, SE [facility] HYDROCO/APA P 5-325MG 05-31 00:00: 00 Yes Dwayne Myers HYDROcodone -acetaminop hen 5-325 mg tablet 05-31 00:00: 00 06-08 04:59 :00 No [id number] 1{tbl} Take 1 tablet by mouth every 6 (six) hours as needed for Pain (scale 7-10) for up to 7 days. Indication s: acute pain [facility] DICLOFEN SOD 100MG ER 05-30 00:00: 00 Yes [id number] Dwayne Myers ORPHENADRIN E 100MG ER 05-29 00:00: 00 Yes [id number] Dwayne Myers TAKE 1 TABLET BY MOUTH AT BEDTIME NEEDED FOR PAIN 05-29 00:00: 00 Yes Dwayne Myers TAKE 1 TABLET BY MOUTH EVERY 8 HOURS 05-29 00:00: 00 Yes Dwayne Myers ZOLPIDEM 10MG 05-27 00:00: 00 Yes [id number] Dwayne Myers TAKE 1 TABLET BY MOUTH EVERYDAY AT BEDTIME 05-26 00:00: 00 Yes Dwyane Myers USE 1 PUFF EVERY DAY 30 05-26 00:00: 00 Yes Dwayne Myers FLUOXETIN(P ) 40MG 05-21 00:00: 00 Yes [id number] Dwayne Myers TAKE 1 TABLET BY MOUTH EVERY 8 HOURS NEEDED 0 05-19 00:00: 00 Yes Dwayne Myers TAKE 1 CAPSULE BY MOUTH EVERY DAY 0 05-19 00:00: 00 Yes Dwayne Myers TAKE 1 CAPSULE BY MOUTH EVERY DAY 0 05-19 00:00: 00 Yes Dwayne Myers ALPRAZOLAM 1MG 14 00:00: 00 Yes 1000 Dwayne Myers TAKE HALF OF A TABLET (0.5 MG) BY MOUTH TWICE A DAY NEEDED 0 - 00:00: 00 Yes Dwayne Myers VITAMIN D3 50,000IU 0 9- 00:00: 00 Yes [id number] 0 Dwayne Myers OMEPRAZOLE 20MG 2021-0 9-09 00:00: 00 Yes [id number] Dwayne Myers FLUOXETIN(P ) 40MG 0 9-06 00:00: 00 Yes [id number] Dwayne Myers FLUOXETINE HCL 20MG 0 - 00:00: 00 Yes Dwayne Myers DICLOFENAC SODIUM ER 100MG ER 0 04-30 00:00: 00 Yes [id number] Dwayne Myers TAKE 1 CAPSULE BY MOUTH EVERY 8 HOURS 0 - 00:00: 00 Yes Dwayne Myers TAKE 1 CAPSULE BY MOUTH EVERY DAY 0 - 00:00: 00 Yes Dwayne Myers TAKE 1 CAPSULE BY MOUTH EVERY DAY 0 - 00:00: 00 Yes Dwayne Myers PREDNISONE 10MG 0 -18 00:00: 00 Yes [id number] Dwayne Myers ALPRAZOLAM 1MG 2021-0 18 00:00: 00 Yes 1000 Dwayne Myers &lt 2021-0 8-16 00:00: 00 Yes Dwayne Myers Dose Unknown 0 -16 00:00: 00 Yes Dwayne Myers DICLOFENAC SODIUM ER 100MG ER TAB 0 8-16 00:00: 00 Yes Dwayne Myers &lt 2021-0 8-16 00:00: 00 Yes 500 Dwayne Myers TAKE 1 CAPSULE BY MOUTH EVERY DAY 0 -16 00:00: 00 Yes Dwayne Myers TAKE 1 TABLET BY MOUTH EVERY DAY FOR 30 DAYS 0 8-16 00:00: 00 Yes 20 Dwayne Myers USE 1 PUFF EVERY DAY 2021-0 8-16 00:00: 00 Yes Dwayne Myers Dose Unknown 2021-0 8-16 00:00: 00 Yes Dwayne Myers &lt 2021-0 8-16 00:00: 00 No TAKE 1 CAPSULE BY MOUTH EVERY DAY 2021-0 8-16 00:00: 00 No 20 &lt 2-0 8-16 00:00: 00 No 100 &lt 2022-0 8-16 00:00: 00 No 500 TAKE 1 CAPSULE BY MOUTH EVERY DAY 2-0 8-16 00:00: 00 No 200 TAKE 1 TABLET BY MOUTH EVERY DAY FOR 30 DAYS 2022-0 8-16 00:00: 00 No 20 USE 1 PUFF EVERY DAY 2-0 8-16 00:00: 00 No INJECT 1 ML INTRAMUSCUL JUDIE ONCE EVERY 3 MONTHS. 2-0 8-16 00:00: 00 No 150 &lt 2022-0 8-16 00:00: 00 No Dose Unknown 2-0 8-16 00:00: 00 No DICLOFENAC SODIUM ER 100MG ER TAB 2-0 8-16 00:00: 00 No &lt 2022-0 8-16 00:00: 00 No 500 TAKE 1 CAPSULE BY MOUTH EVERY DAY 2-0 8-16 00:00: 00 No TAKE 1 TABLET BY MOUTH EVERY DAY FOR 30 DAYS 2-0 8-16 00:00: 00 No 20 USE 1 PUFF EVERY DAY 2-0 8-16 00:00: 00 No Dose Unknown 2-0 8-16 00:00: 00 No &lt 2022-0 8-16 00:00: 00 No Dose Unknown 2-0 8-16 00:00: 00 No DICLOFENAC SODIUM ER 100MG ER TAB 2021-0 8-16 00:00: 00 No &lt 2022-0 8-16 00:00: 00 No 500 TAKE 1 CAPSULE BY MOUTH EVERY DAY 2-0 8-16 00:00: 00 No TAKE 1 TABLET BY MOUTH EVERY DAY FOR 30 DAYS 2021-0 8-16 00:00: 00 No 20 USE 1 PUFF EVERY DAY 2-0 8-16 00:00: 00 No Dose Unknown 2-0 8-16 00:00: 00 No &lt 2022-0 8-13 00:00: 00 Yes Dwayne Myers &lt 2022-0 8-13 00:00: 00 No &lt 2022-0 8-13 00:00: 00 No &lt 2022-0 8-13 00:00: 00 No &lt 2022-0 8-13 00:00: 00 No Dose Unknown 2-0 8-12 00:00: 00 Yes Dwayne Myers FUROSEMIDE 20MG TAB 0 04-14 00:00: 00 Yes Dwayne Myers TAKE 1 TABLET BY MOUTH TWICE A DAY 0 04-14 00:00: 00 Yes Dwayne Myers TAKE 1 TABLET BY MOUTH EVERY DAY FOR 7 DAYS 0 04-14 00:00: 00 No 500 &lt 0 8 00:00: 00 No 20 Dose Unknown 0 8 00:00: 00 No Dose Unknown 0 04-14 00:00: 00 No FUROSEMIDE 20MG TAB 0 04-14 00:00: 00 No TAKE 1 TABLET BY MOUTH TWICE A DAY 0 04-14 00:00: 00 No TAKE 1 TABLET BY MOUTH EVERY DAY FOR 7 DAYS 04-14 00:00: 00 No 500 &lt 0 04-14 00:00: 00 No 20 TAKE 1 TABLET BY MOUTH TWICE A DAY 0 04-14 00:00: 00 No 75 Dose Unknown 04-14 00:00: 00 No FUROSEMIDE 20MG TAB 0 04-14 00:00: 00 No TAKE 1 TABLET BY MOUTH TWICE A DAY 0 04-14 00:00: 00 No TIZANIDINE HCL 2MG 04-13 00:00: 00 Yes 2000 Dwayne Myers TAKE 10 MG 1 TAB ORALLY DAILY AT BEDTIME 0 04-12 00:00: 00 Yes Dwayne Myers TAKE 2 CAPSULES BY MOUTH EVERY DAY 0 04-12 00:00: 00 Yes Dwayne Myers TAKE 1/2 TABLETS (2.5 MG) BY MOUTH DAILY 04-12 00:00: 00 Yes Dwayne Myers TAKE HALF OF A TABLET (0.5 MG) BY MOUTH TWICE A DAY NEEDED 04-12 00:00: 00 Yes Dwayne Myers ALPRAZOLAM 1MG TAB 04-11 00:00: 00 Yes Dwayne Myers Dose Unknown 0 04-11 00:00: 00 Yes Dwayne Myers TAKE 1 TABLET BY MOUTH EVERY 12 HOURS NEEDED 0 04-11 00:00: 00 Yes Dwayne Myers ALPRAZOLAM 1MG TAB 0 04-11 00:00: 00 No &lt 2022-0 8-09 00:00: 00 No Dose Unknown 2-0 8-09 00:00: 00 No ALPRAZOLAM 1MG TAB 2-0 8- 00:00: 00 No Dose Unknown 2-0 8-09 00:00: 00 No TAKE 1 TABLET BY MOUTH EVERY 12 HOURS NEEDED 2-0 8- 00:00: 00 No &lt 2022-0 8- 00:00: 00 No 1 &lt 2022-0 8- 00:00: 00 No Dose Unknown 2-0 8- 00:00: 00 No ALPRAZOLAM 1MG TAB 2021-0 8- 00:00: 00 No Dose Unknown 2021-0 8- 00:00: 00 No TAKE 1 TABLET BY MOUTH EVERY 12 HOURS NEEDED 2-0 8- 00:00: 00 No GABAPENTIN 300MG 2-0 8- 00:00: 00 Yes [id number] Dwayne Myers ONDANSETRON HYDROCHLORI DE 4MG 2021-0 8-06 00:00: 00 Yes 4000 Dwayne Myers ACETAMINOPH EN/CODEINE DEMOND #4 2021-0 8-05 00:00: 00 Yes Dwayne Myers AMLODIPINE BESYLATE 10MG 2021-0 8- 00:00: 00 Yes [id number] Dwayne Myers TAKE 1 TABLET BY MOUTH EVERY DAY FOR 90 DAYS 2021-0 7-28 00:00: 00 Yes Dwayne Myers SPIRONOLACT ONE 50MG 2021-0 7-27 00:00: 00 Yes [id number] Dwayne Myers ZOLPIDEM TARTRATE 10MG 2021-0 7-25 00:00: 00 Yes [id number] Dwayne Myers DICLOFENAC SODIUM ER 100MG ER 2021-0 7-25 00:00: 00 Yes [id number] Dwayne Myers BREO ELLIPTA 200-25 INH 2021-0 7-25 00:00: 00 Yes Dwayne Myers TAKE 1 TABLET BY MOUTH EVERY DAY FOR 90 DAYS 2021-0 7-23 00:00: 00 Yes Dwayne Myers ALPRAZOLAM 1MG 2021-0 7-21 00:00: 00 Yes 1000 Dwayne Myers FUROSEMIDE 20MG 2-0 7-20 00:00: 00 Yes [id number] Dwayne Myers TAKE 1 CAPSULE BY MOUTH EVERY DAY 2022-0 7-18 00:00: 00 Yes Dwayne Myers TAKE 1 CAPSULE BY MOUTH EVERY DAY 0 18 00:00: 00 Yes Dwayne Myers &lt 0 - 00:00: 00 Yes 100 Dwayne Myers &lt 0 - 00:00: 00 No 100 &lt 0 7-15 00:00: 00 No 100 &lt 0 -15 00:00: 00 No 100 &lt 0 -15 00:00: 00 No 100 Cholecalcif shanti, Vitamin D3, 1,250 mcg (50,000 unit) capsule 03-16 00:00: 00 01-15 00:00 :00 No [facility] CELECOXIB 200MG 03-15 00:00: 00 Yes Dwayne Myers TAKE 1 TABLET BY MOUTH EVERY DAY FOR 30 DAYS 03-14 00:00: 00 Yes Dwayne Myers TIZANIDINE HCL 2MG 03-14 00:00: 00 Yes 1999 Dwayne Myers OMEPRAZOLE 20MG 03-13 00:00: 00 Yes Dwayne Myers TAKE 1/2 TABLETS (2.5 MG) BY MOUTH DAILY 03-13 00:00: 00 Yes Dwayne Myers TAKE 1 TABLET BY MOUTH AT BEDTIME 03-13 00:00: 00 Yes Dwayne Myers ZOLPIDEM TARTRATE 10MG 02-27 00:00: 00 Yes Dwayne Myers TAKE 1 TABLET BY MOUTH EVERY DAY FOR 30 DAYS 02-27 00:00: 00 Yes Dwayne Myers DICLOFENAC SODIUM ER 100MG ER 02-27 00:00: 00 Yes Dwayne Myers enoxaparin (LOVENOX) injection 40 mg 02-26 14:00: 00 Yes 40mg 40 mg, Subcutaneo us, DAILY, First dose on 02/26/22 at 0900, Until Discontinu ed, Routine [facility] amLODIPine (NORVASC) tablet 10 mg 02-26 14:00: 00 Yes 10mg 10 mg, Oral, DAILY, First dose on 02/26/22 at 0900, Until Discontinu ed, Routine [facility] celecoxib (CELEBREX) 100 mg capsule 02-26 12:37: 35 Yes 100mg Take 100 mg by mouth 2 (two) times daily with meals. [facility] amLODIPine 10 mg tablet 02-26 12:37: 35 Yes 10mg Take 10 mg by mouth daily. [facility] FLUoxetine 10 mg capsule 02-26 12:37: 35 Yes 10mg Take 10 mg by mouth daily. [facility] traMADoL 100 mg capsule 02-26 12:37: 35 Yes 100mg Take 100 mg by mouth every 6 (six) hours as needed. [facility] ondansetron (ZOFRAN (PF)) injection 4 mg 02-26 04:30: 54 Yes 4mg 4 mg, Slow IV Push, Q6HPRN, Starting on 02/25/22 at 2330, Until Discontinu ed, Routine, Nausea and Vomiting (N/V) [facility] acetaminoph en (TYLENOL) tablet 650 mg 02-26 04:30: 45 Yes 650mg 650 mg, Oral, Q6HPRN, Starting on 02/25/22 at 2330, Until Discontinu ed, Routine, Pain (scale 1-3) [facility] ondansetron (ZOFRAN (PF)) injection 4 mg 02-23 05:45: 00 02-23 04:58 :00 No 4mg 4 mg, Slow IV Push, ONCE, 1 dose, On Nicole 02/23/22 at 0045, SE [facility] morpHINE (4 mg/mL) injection 4 mg 02-23 05:45: 00 02-23 04:58 :00 No 4mg 4 mg, Slow IV Push, ONCE, 1 dose, On Nicole 02/23/22 at 0045, STAT [facility] acetaminoph en (TYLENOL) tablet 1,000 mg 02-23 04:00: 00 02-23 03:13 :00 No 1000mg 1,000 mg, Oral, ONCE, 1 dose, On Sun02/22/22 at 2300, [facility] methocarbam oL (ROBAXIN) tablet 1,000 mg 02-23 04:00: 00 02-23 03:14 :00 No 1000mg 1,000 mg, Oral, ONCE, 1 dose, On Sun02/22/22 at 2300, [facility] TAKE 1 CAPSULE BY MOUTH EVERY DAY 02-20 00:00: 00 Yes Dwayne Myers TAKE 1 TABLET BY MOUTH EVERY 8 HOURS 02-20 00:00: 00 Yes Dwayne Myers FLUOXETINE HYDROCHLORI DE 40MG 02-20 00:00: 00 Yes [id number] Dwayne Myers VITAMIN D3 50,000IU 02-20 00:00: 00 Yes [id number] 0 Dwayne Myers TAKE 1 CAPSULE BY MOUTH EVERY DAY 02-20 00:00: 00 No TAKE 1 CAPSULE BY MOUTH EVERY DAY 02-20 00:00: 00 No TAKE 1 CAPSULE BY MOUTH EVERY DAY 0 02-20 00:00: 00 No TAKE 1 CAPSULE BY MOUTH EVERY DAY 02-20 00:00: 00 No &lt 2021-0 02-16 00:00: 00 Yes Dwayne Myers TIZANIDINE HCL 2MG 02-16 00:00: 00 Yes 1999 Dwayne Myers &lt 0 02-16 00:00: 00 No &lt 2021-0 02-16 00:00: 00 No &lt 2021-0 16 00:00: 00 No &lt 2021-0 16 00:00: 00 No CELECOXIB 200MG 02-14 00:00: 00 Yes Dwayne Myers Dose Unknown 02-09 00:00: 00 Yes Dwayne Bah Louis &lt 2021-0 02-09 00:00: 00 Yes Dwayne Myers TAKE 1 TABLET BY MOUTH TWICE A DAY FOR 30 DAYS 0 02-09 00:00: 00 Yes Dwayne Bah Louis &lt 2021-0 02-09 00:00: 00 Yes Dwayne Myers &lt 2022-0 6- 00:00: 00 Yes Dwayne Myers Dose Unknown 2021-0 6- 00:00: 00 No &lt 2022-0 6 00:00: 00 No TAKE 1 TABLET BY MOUTH TWICE A DAY FOR 30 DAYS 2022-0 6- 00:00: 00 No &lt 2022-0 6- 00:00: 00 No &lt 2022-0 6- 00:00: 00 No Dose Unknown 2-0 6- 00:00: 00 No &lt 2022-0 6 00:00: 00 No TAKE 1 TABLET BY MOUTH TWICE A DAY FOR 30 DAYS 2021-0 6- 00:00: 00 No &lt 2022-0 6 00:00: 00 No &lt 2022-0 6 00:00: 00 No Dose Unknown 2021-0 6 00:00: 00 No &lt 2022-0 6 00:00: 00 No TAKE 1 TABLET BY MOUTH TWICE A DAY FOR 30 DAYS 2021-0 6- 00:00: 00 No &lt 2022-0 6- 00:00: 00 No &lt 2022-0 6 00:00: 00 No Dose Unknown 2021-0 6 00:00: 00 No &lt 2022-0 6 00:00: 00 No TAKE 1 TABLET BY MOUTH TWICE A DAY FOR 30 DAYS 2021-0 02-09 00:00: 00 No &lt 2022-0 6- 00:00: 00 No &lt 2022-0 6 00:00: 00 No TRAZODONE HYDROCHLORI DE 50MG 2021-0 02-08 00:00: 00 Yes [id number] Dwayne Myers TAKE 1 BY MOUTH ORALLY DAILY AT BEDTIME 2021-0 02-08 00:00: 00 Yes Dwayne Myers TAKE 2 CAPSULES BY MOUTH EVERY DAY 2021-0 02-08 00:00: 00 Yes Dwayne Myers &lt 2022-0 6- 00:00: 00 Yes Dwayne Myers &lt 2022-0 6- 00:00: 00 No &lt 2022-0 6- 00:00: 00 No &lt 2022-0 6- 00:00: 00 No &lt 2022-0 6-03 00:00: 00 No Dose Unknown 2021-0 6- 00:00: 00 Yes Dwayne Myers TAKE 1 TABLET BY MOUTH EVERY 12 HOURS NEEDED 2021-0 6- 00:00: 00 Yes Dwayne Myers METFORMIN HYDROCHLORI DE 500MG 2021-0 6- 00:00: 00 Yes [id number] Dwayne Myers BREO ELLIPTA 200-25 INH 2021-0 6- 00:00: 00 Yes Dwayne Myers Dose Unknown 0 - 00:00: 00 No TAKE 1 TABLET BY MOUTH EVERY 12 HOURS NEEDED 2021-0 6- 00:00: 00 No Dose Unknown 2021-0 02-01 00:00: 00 No TAKE 1 TABLET BY MOUTH EVERY 12 HOURS NEEDED 2021-0 - 00:00: 00 No Dose Unknown 2021-0 02-01 00:00: 00 No TAKE 1 TABLET BY MOUTH EVERY 12 HOURS NEEDED 2021-0 02-01 00:00: 00 No Dose Unknown 0 02-01 00:00: 00 No TAKE 1 TABLET BY MOUTH EVERY 12 HOURS NEEDED 2021-0 02-01 00:00: 00 No metformin 500 mg tablet 2021-0 01-31 00:00: 00 Yes 1mg Dwayne Myers Dose Unknown 0 01-31 00:00: 00 Yes Dwayne Myers &lt 2021-0 01-31 00:00: 00 Yes Dwayne Myers TAKE 1 TABLET BY MOUTH TWICE A DAY 2021-0 - 00:00: 00 Yes Dwayne Myers TAKE 2 PUFFS BY MOUTH EVERY 4 TO 6 HOURS 2021-0 - 00:00: 00 Yes Dwayne Myers TAKE 1 CAPSULE BY MOUTH EVERY DAY 2021-0 - 00:00: 00 Yes Dwayne Myers TAKE 6 TABLETS ON DAY 1 DIRECTED ON PACKAGE AND DECREASE BY 1 TAB EACH DAY FOR A TOTAL OF 6 DAYS 2021-0 - 00:00: 00 Yes Dwayne Myers metformin 500 mg tablet 2021-0 - 00:00: 00 No 1mg Dose Unknown 0 - 00:00: 00 No metformin 500 mg tablet 2021-0 - 00:00: 00 No 1mg &lt 0 01-31 00:00: 00 No Dose Unknown [...] TAKE 1 CAPSULE BY MOUTH EVERY DAY 01-31 00:00: 00 No TAKE 6 TABLETS ON DAY 1 DIRECTED ON PACKAGE AND DECREASE BY 1 TAB EACH DAY FOR A TOTAL OF 6 DAYS 01-31 00:00: 00 No ipratropium -albuteroL (DUONEB) 0.5 mg-3 mg(2.5 mg base)/3 mL nebulizer solution 3 mL 01-29 14:15: 00 01-29 14:06 :00 No 3mL 3 mL, Inhalation , ONCE NOW, 1 dose, On 01/29/22 at 0915, Routine [facility] albuterol (PROVENTIL) 2.5 mg /3 mL (0.083 %) nebulizer solution 5 mg 01-29 14:15: 00 01-29 13:42 :00 No 5mg 5 mg, Inhalation , ONCE, 1 dose, On Sun01/29/22 at 0915, SE [facility] Dose Unknown 0 01-28 00:00: 00 Yes Dwayne Myers Dose Unknown 2021-0 01-28 00:00: 00 Yes Dwayne Myers Dose Unknown 0 01-28 00:00: 00 Yes Dwayne Myers Dose Unknown 0 01-28 00:00: 00 No Dose Unknown 2021-0 01-28 00:00: 00 No Dose Unknown 2021-0 01-28 00:00: 00 No Dose Unknown 2021-0 01-28 00:00: 00 No Dose Unknown 2021-0 01-28 00:00: 00 No Dose Unknown 2021-0 01-28 00:00: 00 No Dose Unknown 2021-0 28 00:00: 00 No Dose Unknown 2021-0 28 00:00: 00 No Dose Unknown 2021-0 28 00:00: 00 No Dose Unknown 2021-0 28 00:00: 00 No Dose Unknown 2021-0 01-28 00:00: 00 No Dose Unknown 2021-0 28 00:00: 00 No TAKE 1 TABLET BY MOUTH AT BEDTIME 2021-0 01-25 00:00: 00 Yes Dwayne Myers TAKE 1 CAPSULE BY MOUTH EVERY DAY 0 01-23 00:00: 00 Yes Dwayne Myers TAKE 1 CAPSULE BY MOUTH EVERY 8 HOURS 01-23 00:00: 00 Yes Dwayne Myers TAKE 1 CAPSULE BY MOUTH EVERY DAY 01-23 00:00: 00 Yes Dwayne Myers OMEPRAZOLE 20MG 01-20 00:00: 00 Yes Dwayne Myers VITAMIN D3 50,000IU 01-18 00:00: 00 Yes [id number] Dwayne Myers TAKE 1 TABLET BY MOUTH EVERY DAY FOR 7 DAYS 01-04 00:00: 00 Yes Dwayne Myers FENTanyl PF (SUBLIMAZE (PF)) injection 50 mcg 01-03 04:45: 00 01-03 04:36 :00 No 50ug 50 mcg, Intramuscu lar, ONCE, 1 dose, On Sun01/02/22 at 2345, Routine [facility] CELECOXIB 200MG 12-26 00:00: 00 Yes Dwayne Myers OMEPRAZOLE 20MG 12-24 00:00: 00 Yes Dwayne Myers TAKE 1 TABLET (10 MEQ) BY MOUTH 2 TIMES PER DAY WITH FOOD FOR 3 DAYS 12-20 00:00: 00 Yes Dwayne Myers ACETAMINOPH EN/CODEINE #4 12-10 00:00: 00 Yes Dwayne Myers celecoxib (CELEBREX) 100 mg capsule 12-07 12:53: 05 Yes 100mg Take 100 mg by mouth 2 (two) times daily with meals. [facility] amLODIPine 10 mg tablet 12-07 12:53: 05 Yes 10mg Take 10 mg by mouth daily. [facility] FLUoxetine 10 mg capsule 12-07 12:53: 05 Yes 10mg Take 10 mg by mouth daily. [facility] traMADoL 100 mg capsule 12-07 12:53: 05 Yes 100mg Take 100 mg by mouth every 6 (six) hours as needed. [facility] predniSONE 10 mg tablet 12-07 10:31: 31 12-07 00:00 :00 No 10mg Take 10 mg by mouth daily. [facility] hydrALAZINE 100 mg tablet 12-07 10:31: 31 12-07 00:00 :00 No 100mg Take 100 mg by mouth 2 (two) times daily. [facility] cefTRIAXone (ROCEPHIN) injection 2,000 mg 12-07 05:00: 00 12-12 04:59 :00 No 2000mg 2,000 mg, Intravenou s, Q24H ABX, 5 doses, First dose on Sun12/07/21 at 0000, Last dose on Sun12/11/21 at 0000
Re ason for Anti-Infec tive: Documented Infection< br>Documen britney Infection Site: Respirator y
Durat ion of Therapy: 7 days [facility] PLEASE SEE ATTACHED FOR DETAILED DIRECTIONS 12-07 00:00: 00 Yes Dwayne Myers AZITHROMYCI N 500MG 12-07 00:00: 00 Yes [id number] Dwayne Myers predniSONE 10 mg tablet 12-07 00:00: 00 12-23 04:59 :00 No [id number] Take 2 tablets by mouth daily for 5 days, THEN 1 tablet daily for 5 days, THEN 0.5 tablets daily for 5 days. [facility] azithromyci n 500 mg tablet 12-07 00:00: 00 12-10 04:59 :00 No [id number] 500mg Take 1 tablet by mouth daily for 2 days. [facility] traMADoL (ULTRAM) tablet 50 mg 12-06 16:44: 28 Yes 50mg 50 mg, Oral, Q6HPRN, Starting on Sun12/06/21 at 1144, Until Discontinu ed, Routine, Pain (scale 4-6) [facility] ALPRAZolam (XANAX) tablet 0.5 mg 12-06 16:43: 05 Yes .5mg 0.5 mg, Oral, BIDPRN, Starting on Sun12/06/21 at 1143, Until Discontinu ed, Routine, anxiety [facility] HYDROcodone -acetaminop hen (NORCO 5) 5-325 mg tablet 1 tablet 12-06 16:42: 38 Yes 1{tbl} 1 tablet, Oral, Q6HPRN, Starting on Sun12/06/21 at 1142, Until Discontinu ed, Routine, Pain (scale 7-10) [facility] azithromyci n (ZITHROMAX) 500 mg in NaCl [...] ion of therapy: 72 hours [facility] KCL (KLOR-CON M20) tablet 40 mEq 12-06 14:00: 00 Yes 40meq 40 mEq, Oral, DAILY, First dose on Sun12/06/21 at 0900, Until Discontinu ed, [facility]oxap[facility] (LOVENOX) injection 40 mg 12-06 14:00: 00 Yes 40mg 40 mg, Subcutaneo us, Q24H, First dose on Sun12/06/21 at 0900, Until Discontinu ed, [facility] predniSONE (DELTASONE) tablet 20 mg 12-06 14:00: 00 Yes 20mg 20 mg, Oral, DAILY, First dose on Sun12/06/21 at 0900, Until Discontinu ed, Routine [facility] FLUoxetine (PROZAC) capsule 20 mg 12-06 14:00: 00 Yes 20mg 20 mg, Oral, DAILY, First dose on Sun12/06/21 at 0900, Until Discontinu ed, [facility]ine [facility] amLODIPine (NORVASC) tablet 5 mg 12-06 14:00: 00 Yes 5mg 5 mg, Oral, DAILY, First dose on Sun12/06/21 at 0900, Until Discontinu ed, Routine [facility] magnesium oxide (MAG-OX 400) tablet 400 mg 12-06 13:00: 00 Yes 400mg 400 mg, Oral, BID, First dose on Sun12/06/21 at 0800, Until Discontinu ed, Routine [facility] ipratropium -albuteroL (DUONEB) 0.5 mg-3 mg(2.5 mg base)/3 mL nebulizer solution 3 mL 12-06 13:00: 00 Yes 3mL 3 mL, Inhalation , QID, First dose on Sun12/06/21 at 0800, Until Discontinu ed, Routine [facility] lactobacill us acidophilus tablet 0.5 mg 12-06 13:00: 00 Yes .5mg 0.5 mg, Oral, BID, First dose on Sun12/06/21 at 0800, Until Discontinu ed, Routine [facility] levoFLOXaci n in D5W (LEVAQUIN) 750 mg/150 [...]
Re stricted use approved by: ADC PROVIDER [facility] traMADoL (ULTRAM) tablet 50 mg 12-06 08:14: 42 12-06 16:44 :40 No 50mg 50 mg, Oral, Q6HPRN, Starting on Sun12/06/21 at 0314, Until Sun12/06/21 at 1144, Routine, Pain (scale 7-10) [facility] HYDROcodone -acetaminop hen (NORCO) 10-325 mg tablet 1 tablet 12-06 06:00: 00 12-06 04:59 :00 No 1{tbl} 1 tablet, Oral, ONCE, 1 dose, On Sun12/06/21 at 0100, Routine [facility] fluticasone propion-lavon meteroL (ADVAIR) 250-50 mcg/dose inhalation disk 1 Puff 12-05 13:00: 00 Yes 1{puff} 1 Puff, Inhalation , Q12H, First dose on Sun12/05/21 at 0800, Until Discontinu ed, Routine [facility] lurasidone HCl (LATUDA ORAL) 12-05 05:43: 55 12-05 00:00 :00 No Take by mouth. [facility] acetylcyste ine (MUCOMYST) 200 mg/mL (20 %) solution 800 mg 12-05 05:00: 00 12-08 04:59 :00 No 4mL 800 mg (4 mL), Inhalation , Q6H, 12 doses, First dose on Sun12/05/21 at 0000, Last dose on Sun12/07/21 at 1800, Routine [facility] cefTRIAXone (ROCEPHIN) 1,000 mg in NaCl 0.9% (NS) 50 mL MINI-BAG 12-05 03:00: 00 Yes 1000mg 1,000 mg, IV Piggyback, Q24H ABX, First dose on Sun12/04/21 at 2200, Until Discontinu ed, Administer over 30 Minutes, 50 mL
Reas on for Anti-Infec tive: Empiric Therapy for Suspected Infection& lt;br>Empi leandro Therapy Site: Respirator y
Durat ion of therapy: 72 hours [facility] ipratropium -albuteroL (DUONEB) 0.5 mg-3 mg(2.5 mg base)/3 mL nebulizer solution 3 mL 12-05 02:00: 00 Yes 3mL 3 mL, Inhalation , Q6HPRN, Starting on Sun12/04/21 at 2100, Until Discontinu ed, Routine, Wheezing [facility] methylpredn isolone sod succ (SOLU-MEDRO L) injection 60 mg 12-05 02:00: 00 Yes 60mg 60 mg, Slow IV Push, Q12H, First dose on 12/04/21 at 2100, Until Discontinu ed, [facility] HYDROcodone -acetaminop hen (NORCO) 10-325 mg tablet 1 tablet 12-05 01:55: 51 Yes 1{tbl} 1 tablet, Oral, Q6HPRN, Starting on 12/04/21 at 2055, Until Discontinu ed, Routine, Pain (scale 4-6) [facility] TAKE 1 TABLET BY MOUTH EVERY 8 HOURS 12-05 00:00: 00 Yes Dwayne Myers TAKE 1 CAPSULE BY MOUTH EVERY DAY 12-05 00:00: 00 Yes Dwayne Myers iopamidol (ISOVUE 370-500 mL) injection 100 mL 12-04 20:43: 00 12-04 20:43 :00 No [id number] 100mL 100 mL, Intravenou s, ONCE, 1 dose, On 12/04/21 at 1600, [facility]ine [facility] enoxaparin (LOVENOX) injection 40 mg 12-04 14:00: 00 Yes 40mg 40 mg, Subcutaneo us, DAILY, First dose on 12/04/21 at 0900, Until Discontinu ed, Routine [facility] amLODIPine (NORVASC) tablet 5 mg 12-04 14:00: 00 Yes 5mg 5 mg, Oral, DAILY, First dose on 12/04/21 at 0900, Until Discontinu ed, Routine [facility] predniSONE (DELTASONE) tablet 20 mg 12-04 14:00: 00 12-05 01:54 :23 No 20mg 20 mg, Oral, DAILY, First dose on 12/04/21 at 0900, Until Discontinu ed, Routine [facility] lurasidone (LATUDA) tablet 20 mg 12-04 12:30: 00 Yes 20mg 20 mg, Oral, [facility]-0730, First dose on 12/04/21 at 0730, Until Discontinu ed [facility] doxycycline hyclate (Vibramycin ) capsule 100 mg 12-04 11:00: 00 Yes 100mg 100 mg, Oral, Q12HA2, First dose on [place] 12/04/21 at 0600, Until Discontinu ed, SE
Re ason for Anti-Infec tive: Empiric Therapy for Suspected Infection< br>Empiric Therapy Site: Respirator y
Durat ion of therapy: 7 days [facility] NaCl 0.9% (NS) IV infusion 500 mL 12-04 11:00: 00 12-04 15:59 :00 No 500mL at 100 mL/hr, IV Infusion, CONTINUOUS , Starting on [place] 12/04/21 at 0600, Until [place] 12/04/21 at 1059, [facility]ine [facility] zolpidem (AMBIEN) tablet 5 mg 12-04 06:14: 57 Yes 5mg 5 mg, Oral, QHSPRN, Starting on [place] 12/04/21 at 0114, Until Discontinu ed, Routine, Insomnia [facility] docusate (COLACE) capsule 100 mg 12-04 01:00: 00 Yes 100mg 100 mg, Oral, BID, First dose on [facility] 12/03/21 at 1999, Until Discontinu ed, Routine [facility] busPIRone (BUSPAR) tablet 5 mg 12-04 01:00: 00 Yes 5mg 5 mg, Oral, BID, First dose on [facility] 12/03/21 at 1999, Until Discontinu ed, Routine [facility] ipratropium -albuteroL (DUONEB) 0.5 mg-3 mg(2.5 mg base)/3 mL nebulizer solution 3 mL 12-04 01:00: 00 12-05 01:56 :47 No 3mL 3 mL, Inhalation , QID, First dose on [facility] 12/03/21 at 1999, Until Discontinu ed, Routine [facility] ondansetron (ZOFRAN (PF)) injection 4 mg 12-03 22:05: 11 Yes 4mg 4 mg, Slow IV Push, Q6HPRN, Starting on 12/03/21 at 1705, Until Discontinu ed, Routine, Nausea and Vomiting (N/V) [facility] HYDROcodone -acetaminop hen (NORCO 5) 5-325 mg tablet 1 tablet 12-03 22:05: 07 12-05 01:56 :02 No 1{tbl} 1 tablet, Oral, Q6HPRN, Starting on 12/03/21 at 1705, Until 12/04/21 at 2055, Routine, Pain (scale 4-6) [facility] acetaminoph en (TYLENOL) tablet 650 mg 12-03 22:05: 04 Yes 650mg 650 mg, Oral, Q6HPRN, Starting on 12/03/21 at 1705, Until Discontinu ed, Routine, Pain (scale 1-3) [facility] methylpredn isolone sod succ (SOLU-MEDRO L) injection 125 mg 12-03 21:00: 00 12-03 22:03 :00 No 125mg 125 mg, Slow IV Push, ONCE NOW, 1 dose, On 12/03/21 at 1600, SE [facility] albuterol (PROVENTIL) 2.5 mg /3 mL (0.083 %) nebulizer solution 2.5 mg 12-03 21:00: 00 12-03 22:06 :33 No 2.5mg 2.5 mg, Inhalation , QID, First dose on 12/03/21 at 1600, Until Discontinu ed, Routine [facility] ipratropium (ATROVENT) 0.02 % nebulizer solution 0.5 mg 12-03 21:00: 00 12-03 22:06 :24 No .5mg 0.5 mg, Inhalation , QID, First dose on 12/03/21 at 1600, Until Discontinu ed, Routine [facility] CELECOXIB 200MG 11-30 00:00: 00 Yes Dwayne Bah Louis TAKE 1 TABLET BY MOUTH EVERY DAY FOR 30 DAYS 11-30 00:00: 00 Yes Dwayne Myers TAKE 1 TABLET BY MOUTH TWICE A DAY FOR 30 DAYS 11-30 00:00: 00 Yes Dwayne Myers TAKE 1 TABLET BY MOUTH AT BEDTIME 11-30 00:00: 00 Yes Dwayne Myers TAKE 1 TABLET BY MOUTH TWICE A DAY 11-30 00:00: 00 Yes Dwayne Myers TAKE 1 TABLET BY MOUTH EVERY 12 HOURS NEEDED FOR PAIN 11-28 00:00: 00 Yes Dwayne Myers SULINDAC 200MG 11-24 00:00: 00 Yes Dwayne Myers METHOCARBAM OL 500MG 11-24 00:00: 00 Yes Dwayne Myers FLUOXETINE HCL 20MG 11-23 00:00: 00 Yes Dwayne Myers PREDNISONE 20MG 11-17 00:00: 00 Yes Dwayne Myers ALBUTEROL SULFATE HFA HFA 200 INH 11-16 00:00: 00 Yes Dwayne Myers predniSONE (DELTASONE) tablet 30 mg 11-12 15:00: 00 Yes 30mg 30 mg, Oral, DAILY, First dose (after last modificati on) on Sun11/12/21 at 0900, Until Discontinu ed, Routine [facility] piperacilli n-tazobacta m (ZOSYN) 3.375 g in NaCl 0.9% (NS) 50 mL MINI-BAG 11-11 23:30: 00 Yes 3.375g 3.375 g, IV Piggyback, Q8H ABX, First dose on Sun11/11/21 at 1730, Until Discontinu ed, Administer over 4 Hours, 50 mL
Reas on for Anti-Infec tive: Empiric Therapy for Suspected Infection< br>Empi leandro Therapy Site: Respirator y
Durat ion of therapy: 72 hours [facility] lurasidone HCl (LATUDA ORAL) 11-11 17:32: 07 Yes Take by mouth. [facility] KCL (KLOR-CON M20) tablet 20 mEq 11-11 02:00: 00 11-11 02:20 :00 No 20meq 20 mEq, Oral, ONCE, 1 dose, On [place] 11/10/21 at 2000, Routine [facility] MIRTAZAPINE 15MG 11-11 00:00: 00 Yes [id number] Dwayne Myers predniSONE 20 mg tablet 11-11 00:00: 00 12-05 00:00 :00 No [id number] 20mg Take 1 tablet by mouth daily. [facility] piperacilli n-tazobacta m (ZOSYN) 3.375 g in [...]
Durat ion of therapy: 72 hours [facility] enoxaparin (LOVENOX) injection 40 mg 11-10 15:00: 00 Yes 40mg 40 mg, Subcutaneo us, DAILY, First dose on [place] 11/10/21 at 0900, Until Discontinu ed, Routine [facility] hydroCHLORO thiazide (ESIDRIX) capsule 12.5 mg 11-10 15:00: 00 Yes 12.5mg 12.5 mg, Oral, DAILY, First dose on [place] 11/10/21 at 0900, Until Discontinu ed, Routine [facility] amLODIPine (NORVASC) tablet 10 mg 11-10 15:00: 00 Yes 10mg 10 mg, Oral, DAILY, First dose on Sun11/10/21 at 0900, Until Discontinu ed, [facility] predniSONE (DELTASONE) tablet 40 mg 11-10 15:00: 00 11-11 17:05 :49 No 40mg 40 mg, Oral, DAILY, First dose on Sun11/10/21 at 0900, Until Discontinu ed, Routine [facility] docusate (COLACE) capsule 100 mg 11-10 14:00: 00 Yes 100mg 100 mg, Oral, BID, First dose on Sun11/10/21 at 0800, Until Discontinu ed, Routine [facility] busPIRone (BUSPAR) tablet 5 mg 11-10 14:00: 00 Yes 5mg 5 mg, Oral, BID, First dose on Sun11/10/21 at 0800, Until Discontinu ed, Routine [facility] lurasidone (LATUDA) tablet 20 mg 11-10 13:30: 00 Yes 20mg 20 mg, Oral, QAM-0730, First dose on Sun11/10/21 at 0730, Until Discontinu ed [facility] morpHINE injection 2 mg 11-10 07:05: 58 Yes 2mg 2 mg, Slow IV Push, Q4HPRN, Starting on Sun11/10/21 at 0105, Until Discontinu ed, Routine, Pain (scale 7-10) [facility] ondansetron (ZOFRAN (PF)) injection 4 mg 11-10 05:19: 35 Yes 4mg 4 mg, Slow IV Push, Q6HPRN, Starting on Sun11/09/21 at 2319, Until Discontinu ed, Routine, Nausea and Vomiting (N/V) [facility] HYDROcodone -acetaminop hen (NORCO 5) 5-325 mg tablet 1 tablet 11-10 05:19: 30 -12 05:18 :30 No 1{tbl} 1 tablet, Oral, Q6HPRN, Starting on Sun11/09/21 at 2319, Until Sun11/11/21 at 2318, Routine, Pain (scale 4-6) [facility] acetaminoph en (TYLENOL) tablet 650 mg 11-10 05:19: 28 Yes 650mg 650 mg, Oral, Q6HPRN, Starting on Sun11/09/21 at 2319, Until Discontinu ed, Routine, Pain (scale 1-3) [facility] albuterol (VENTOLIN) inhaler 2 Puff 11-10 05:17: 52 Yes 2{puff} 2 Puff, Inhalation , Q6HPRN, Starting on Sun11/09/21 at 2317, Until Discontinu ed, Routine, Wheezing, Shortness of Breath [facility] iopamidol (ISOVUE 370-500 mL) injection 100 mL 11-10 04:43: 00 11-10 04:44 :00 No [id number] 100mL 100 mL, Intravenou s, ONCE, 1 dose, On Sun11/09/21 at 2300, Routine [facility] morpHINE injection 4 mg 11-10 03:45: 00 [...]
D uration of Therapy: Other (see Comments) [facility] NaCl 0.9% (NS) bolus infusion 1,000 mL 11-10 03:45: 00 11-10 05:33 :00 No 1000mL at 999 mL/hr, 1,000 mL, IV Infusion, ONCE, 1 dose, On Sun11/09/21 at 2145, SE [facility] ondansetron (ZOFRAN (PF)) injection 4 mg 11-10 03:00: 00 11-10 01:59 :00 No 4mg 4 mg, Slow IV Push, ONCE, 1 dose, On Sun11/09/21 at 2100, SE [facility] morpHINE injection 4 mg 11-10 03:00: 00 11-10 01:58 :00 No 4mg 4 mg, Slow IV Push, ONCE, 1 dose, On Sun11/09/21 at 2100, STAT [facility] albuterol (PROVENTIL) 2.5 mg /3 mL (0.083 %) nebulizer solution 2.5 mg 11-10 02:00: 00 Yes 2.5mg 2.5 mg, Inhalation , QID, First dose on Sun11/09/21 at 2000, Until Discontinu ed, Routine [facility] ipratropium (ATROVENT) 0.02 % nebulizer solution 0.5 mg 11-10 02:00: 00 Yes .5mg 0.5 mg, Inhalation , QID, First dose on Sun11/09/21 at 2000, Until Discontinu ed, Routine [facility] TAKE 1 CAPSULE BY MOUTH EVERY DAY 11-07 00:00: 00 Yes Dwayne Myers FLUOXETINE HYDROCHLORI DE 40MG 11-07 00:00: 00 Yes [id number] Dwayne Myers AMOXICILLIN /CLAVULANAT E P [id number] [id number] 3-05 00:00: 00 Yes Dwayne Myers DICLOFENAC SODIUM ER 100MG ER - 00:00: 00 Yes [id number] Dwayne Myers hydroCHLORO thiazide 12.5 mg capsule 10-25 00:00: 00 12-05 00:00 :00 No [id number] 12.5mg Take 1 capsule by mouth daily. [facility] lurasidone HCl (LATUDA ORAL) 10-24 17:53: 11 Yes Take by mouth. [facility] lurasidone HCl (LATUDA ORAL) 10-24 10:59: 57 Yes Take by mouth. [facility] zolpidem (AMBIEN) tablet 5 mg 10-24 04:00: 00 10-24 03:07 :00 No 5mg 5 mg, Oral, ONCE, 1 dose, On 10/23/21 at 2200, Routine [facility] docusate 100 mg capsule 10-24 00:00: 00 12-05 00:00 :00 No [id number] 100mg Take 1 capsule by mouth 2 (two) times daily. [facility] busPIRone 5 mg tablet 10-24 00:00: 12-05 00:00 :00 No [id number] 5mg Take 1 tablet by mouth 2 (two) times daily. [facility] chlorhexidi ne 0.12 % mouthwash 10-24 00:00: 12-05 00:00 :00 No [id number] 15mL Swish and spit out 15 mL 2 (two) times daily. [facility] albuterol 90 mcg/actuati on inhaler 10-24 00:00: 12-05 00:00 :00 No [id number] 2{puff} Inhale 2 Puffs every 6 (six) hours as needed for Wheezing or Shortness of Breath. [facility] predniSONE 20 mg tablet 10-24 00:00: 00 11-11 00:00 :00 No [id number] 40mg Take 2 tablets by mouth daily. [facility] acetaminoph en-codeine 300-30 mg tablet 10-24 00:00: 10-30 05:59 :00 No [id number] 1{tbl} Take 1 tablet by mouth every 4 (four) hours as needed for Pain (scale 4-6) for up to 5 days. Indication s: acute pain [facility] phenoL (SORE THROAT (PHENOL)) 1.4 % spray bottle 1 [place] 10-23 19:03: 59 Yes 1{spray } 1 [place], Oral, PRN, Starting on 10/23/21 at 1303, Until Discontinu ed, Routine, Sore throat [facility] zolpidem (AMBIEN) tablet 5 mg 10-23 04:00: 00 10-23 03:54 :00 No 5mg 5 mg, Oral, ONCE, 1 dose, On 10/22/21 at 2200, Routine [facility] methylpredn isolone sod succ (SOLU-MEDRO L) injection 125 mg 10-22 20:00: 00 Yes 125mg 125 mg, Intravenou s, Q8H, First dose (after last modificati on) on 10/22/21 at 1400, Until Discontinu ed, Routine [facility] hydroCHLORO thiazide (ESIDRIX) capsule 12.5 mg 10-22 15:30: 00 Yes 12.5mg 12.5 mg, Oral, DAILY, First dose on 10/22/21 at 0930, Until Discontinu ed, Routine [facility] amLODIPine (NORVASC) tablet 10 mg 10-22 15:30: 00 Yes 10mg 10 mg, Oral, DAILY, First dose on 10/22/21 at 0930, Until Discontinu ed, Routine [facility] acetaminoph en (TYLENOL) tablet 650 mg 10-22 09:54: 49 Yes 650mg 650 mg, Oral, Q6HPRN, Starting on 10/22/21 at 0354, Until Discontinu ed, Routine, Pain (scale 1-3) [facility] chlorhexidi ne (PERIDEX) 0.12 % mouthwash 15 mL 10-22 02:00: 00 Yes 15mL 15 mL, Oral (Swish And Spit Out), BID, First dose on Sun10/21/21 at 2000, Until Discontinu ed, Routine [facility] dexMEDEtomi dine 200 mcg in 0.9 [...] at maximum allowed dose, contact prescriber .
[facility] propofoL IV infusion 10-21 20:41: 59 10-22 [...] vials should be discarded after 12 hours.
[facility] fentaNYL PF (SUBLIMAZE) STD 2,500 mcg in [...] at maximum allowed dose, contact prescriber .
[facility] lidocaine 4% (XYLOCAINE) 4 % (40 mg/mL) topical solution 10-21 19:00: 00 Yes PRN, Starting on Sun10/21/21 at 1300, Until Discontinu ed, Routine, Intra-op [facility] methylpredn isolone sod succ (SOLU-MEDRO L) injection 125 mg 10-21 19:00: 00 10-22 15:22 :22 No 125mg 125 mg, Intravenou s, Q6H, First dose (after last modificati on) on Sun10/21/21 at 1300, Until Discontinu ed, Routine [facility] metoprolol (LOPRESSOR) injection 5 mg 10-21 19:00: 00 10-21 19:00 :00 No 5mg 5 mg, Slow IV Push, ONCE, 1 dose, On Sun10/21/21 at 1300, Routine [facility] EPINEPHrine 1:1,000 (1 mg/mL) (ADRENALIN) injection 10-21 18:01: 00 Yes PRN, Starting on Sun10/21/21 at 1201, Until Discontinu ed, Routine, [facility] ondans[facility] (ZOFRAN (PF)) injection 4 mg 10-21 17:19: 50 Yes 4mg 4 mg, Slow IV Push, PRN, 1 dose, Starting on Sun10/21/21 at 1119, Until Discontinu ed, Routine, Nausea and Vomiting (N/V), PACU [facility] NaCl 0.9% (NS) injection 10-21 17:01: 00 Yes PRN, Starting on Sun10/21/21 at 1101, Until Discontinu ed, Routine, Intra-op [facility] morpHINE injection 4 mg 10-20 23:22: 52 Yes 4mg 4 mg, Slow IV Push, Q4HPRN, Starting on Sun10/20/21 at 1722, Until Discontinu ed, Routine, Pain (scale 7-10) [facility] methylpredn isolone sod succ (SOLU-MEDRO L) injection 125 mg 10-20 20:00: 00 10-21 17:53 :24 No 125mg 125 mg, Intravenou s, Q8H, First dose (after last modificati on) on Sun10/20/21 at 1400, Until Discontinu ed, Routine [facility] furosemide (LASIX) injection 40 mg 10-20 18:00: 00 10-20 18:19 :00 No 40mg 40 mg, Slow IV Push, ONCE, 1 dose, On Sun10/20/21 at 1200, Routine [facility] pantoprazol e (PROTONIX) EC tablet 40 mg 10-20 16:45: 00 Yes 40mg 40 mg, Oral, DAILY, First dose on Sun10/20/21 at 1045, Until Discontinu ed, [facility] alum-mag hydroxide-s imeth (MAALOX PLUS / MAG-AL PLUS) 200-200-20 mg/5 mL suspension 30 mL 10-20 16:37: 49 Yes 30mL 30 mL, Oral, Q6HPRN, Starting on Sun10/20/21 at 1037, Until Discontinu ed, Routine, Indigestio n [facility] acetaminoph en (TYLENOL) tablet 650 mg 10-20 16:16: 26 10-21 17:01 :51 No 650mg 650 mg, Oral, Q6HPRN, Starting on Sun10/20/21 at 1016, Until Sun10/21/21 at 1101, Routine, Pain (scale 1-3) [facility] polyethylen e glycol 3350 powder 17 g 10-20 15:00: 00 Yes 17g 17 g, Oral, DAILY, First dose on Sun10/20/21 at 0900, Until Discontinu ed, Routine [facility] docusate (COLACE) capsule 100 mg 10-20 02:00: 00 Yes 100mg 100 mg, Oral, BID, First dose on Sun10/19/21 at 2000, Until Discontinu ed, Routine [facility] hydralAZINE (APRESOLINE ) injection 10 mg 10-19 11:35: 36 Yes 10mg 10 mg, Slow IV Push, Q4HPRN, Starting on Sun10/19/21 at 0535, Until Discontinu ed, Routine, systolic BP >180
In dication: Hypertensi ve Emergency [facility] haloperidol lactate (HALDOL) injection 5 mg 10-19 08:42: 00 10-19 08:44 :00 No 5mg 5 mg, Slow IV Push, ONCE, 1 dose, On Sun10/19/21 at 0245, Routine [facility] pantoprazol e (PROTONIX) injection 40 mg 15 01:45: 00 10-20 16:42 :17 No 40mg 40 mg, Slow IV Push, Q24H, First dose on Sun10/17/21 at 1945, Until Discontinu ed [facility] methylpredn isolone sod succ (SOLU-MEDRO L) injection 125 mg 10-17 18:30: 00 10-20 18:10 :46 No 125mg 125 mg, Intravenou s, Q6H, First dose on Sun10/17/21 at 1230, Until Discontinu ed, Routine [facility] ziprasidone (GEODON) injection 10 mg 10-17 18:30: 00 10-17 17:35 :00 No 10mg 10 mg, Intramuscu lar, ONCE, 1 dose, On Sun10/17/21 at 1230, Routine [facility] methylPREDN ISolone sodium succinate (SOLU-MEDRO L) injection 125 mg 10-17 18:00: 00 10-17 18:28 :52 No 125mg 125 mg, Slow IV Push, Q6H, First dose on Sun10/17/21 at 1200, Until Discontinu ed, Routine [facility] thiamine (VITAMIN B1) 100 mg in NaCl 0.9% (NS) piggyback 10-17 17:45: 00 10-19 14:08 :00 No 100mg IV Piggyback, DAILY, 3 doses, First dose on Sun10/17/21 at 1145, Last dose on Sun10/19/21 at 0900, 50 mL [facility] LORazepam (ATIVAN) injection 1 mg 10-17 17:00: 00 10-19 17:33 :38 No 1mg 1 mg, Slow IV Push, Q4HPRN, Starting on Sun10/17/21 at 1100, Until Sun10/19/21 at 1133, Routine, Anxiety, Agitation [facility] ipratropium -albuteroL (DUONEB) 0.5 mg-3 mg(2.5 mg base)/3 mL nebulizer solution 3 mL 10-17 14:00: 00 Yes 3mL 3 mL, Inhalation , Q4H, First dose on Sun10/17/21 at 0800, Until Discontinu ed, Routine [facility] lidocaine 1% (PF) (XYLOCAINE) injection 5 mL 10-17 13:45: 00 10-17 13:45 :00 No 5mL 5 mL, Subcutaneo us, ONCE, 1 dose, On Sun10/17/21 at 0745, Routine [facility] NaCl 0.9% (NS) injection 10 mL 10-17 13:27: 33 Yes 10mL 10 mL, Slow IV Push, PRN, Starting on Sun10/17/21 at 0727, Until Discontinu ed, Routine, line maintenanc e [facility] haloperidol lactate (HALDOL) injection 5 mg 10-17 04:00: 00 10-17 03:03 :00 No 5mg 5 mg, Slow IV Push, ONCE, 1 dose, On Sun10/16/21 at 2200, Routine [facility] busPIRone (BUSPAR) tablet 5 mg 10-17 02:00: 00 Yes 5mg 5 mg, Oral, BID, First dose on Sun10/16/21 at 2000, Until Discontinu ed, Routine [facility] methylpredn isolone sod succ (SOLU-MEDRO L) injection 60 mg 10-16 23:00: 00 10-17 17:25 :30 No 60mg 60 mg, Slow IV Push, Q8H, First dose on Sun10/16/21 at 1700, Until Discontinu ed, Routine [facility] HYDROcodone -acetaminop hen (NORCO 5) 5-325 mg tablet 1 tablet 10-16 19:49: 46 10-21 17:01 :51 No 1{tbl} 1 tablet, Oral, Q6HPRN, Starting on Sun10/16/21 at 1349, Until Sun10/21/21 at 1101, Routine, Pain (scale 4-6) [facility] cefTRIAXone (ROCEPHIN) 1,000 mg in NaCl 0.9% [...]
Durat ion of Therapy: Other (see Comments) [facility] azithromyci n (ZITHROMAX) 500 mg in NaCl 0.9% (NS) 250 mL VIAL-MATE IV piggyback 10-16 18:30: 00 10-18 19:16 :00 No 500mg 500 mg, IV Piggyback, Q24H ABX, 3 doses, First dose on Sun10/16/21 at 1230, Last dose on Sun10/18/21 at 1230, Administer over 60 Minutes, 250 mL
Reas on for Anti-Infec tive: Documented Infection< br>Documen rbitney Infection Site: Respirator y
Durat ion of Therapy: Other (see Comments) [facility] dexMEDEtomi dine 400 mcg in 0.9 % [...] at maximum allowed dose, contact prescriber .
[facility] LORazepam (ATIVAN) injection 0.5 mg 10-15 21:43: 49 10-17 16:47 :31 No .5mg 0.5 mg, Slow IV Push, [id number], Starting on 10/15/21 at 1543, Until 10/17/21 at 1047, Routine, Anxiety [facility] iopamidol (ISOVUE 370-500 mL) injection 100 mL 10-15 20:30: 00 10-15 19:21 :00 No [id number] 100mL 100 mL, Intravenou s, ONCE, 1 dose, On 10/15/21 at 1430, Routine [facility] enoxaparin (LOVENOX) injection 40 mg 10-15 17:15: 00 10-20 16:42 :18 No 40mg 40 mg, Subcutaneo us, Q24H, First dose on 10/15/21 at 1115, Until Discontinu ed, Routine [facility] levoFLOXaci n in D5W (LEVAQUIN) 750 mg/150 mL Piggyback 750 mg 10-15 17:15: 00 10-16 17:25 :46 No 750mg 750 mg, IV Piggyback, Q24H ABX, First dose on 10/15/21 at 1115, Until Discontinu ed, Administer over 90 Minutes, 150 mL
Reas on for Anti-Infec tive: Empiric Therapy for Suspected Infection& lt;br>Empi leandro Therapy Site: Respirator y
Durat ion of therapy: 72 hours [facility] furosemide (LASIX) injection 20 mg 10-15 14:30: 00 10-15 13:38 :00 No 20mg 20 mg, IV Push, ONCE, 1 dose, On 10/15/21 at 0830, [facility] glucon[facility] 1 g in NaCl 50 mL (ISO-OSM) RTU IV infusion 1 g 10-15 14:15: 00 10-15 13:37 :00 No 1g 1 g, IV Infusion, ONCE, 1 dose, On 10/15/21 at 0815, Routine [facility] insulin regular human (HUMULIN R) injection 10 Units 10-15 14:15: 00 10-15 13:37 :00 No 10U 10 Units, IV Push, ONCE, 1 dose, On 10/15/21 at 0815, [facility] dextrose 50 % in water (D50W) injection 50 mL 10-15 14:15: 00 10-15 13:37 :00 No 50mL 50 mL, Slow IV Push, ONCE, 1 dose, On 10/15/21 at 0815, Routine [facility] heparin (porcine) injection 5,000 Units 10-15 12:00: 00 10-15 16:12 :17 No 5000U 5,000 Units, Subcutaneo us, Q8H, First dose on 10/15/21 at 0600, Until Discontinu ed, Routine [facility] vancomycin 1500 mg in NS 500 mL IV Piggyback RTU 1,500 mg 10-15 10:00: 00 10-15 16:12 :17 No 15mg/kg 1,500 mg (15 mg/kg ?100 kg), IV Piggyback, Q12H ABX, First dose on 10/15/21 at 0400, Until Discontinu ed, Administer over 90 Minutes
Reason for Anti-Infec tive: Documented Infection< br>Docu mented Infection Site: Blood
D uration of Therapy: 7 days [facility] ceFEPIme (MAXIPIME) 1,000 mg in NaCl 0.9% (NS) 50 mL MINI-BAG 10-15 09:15: 00 10-15 16:12 :17 No 1000mg 1,000 mg, IV Piggyback, Q12H ABX, First dose on 10/15/21 at 0315, Until Discontinu ed, Administer over 30 Minutes, 50 mL
Reas on for Anti-Infec tive: Documented Infection< br>Documen brtiney Infection Site: Blood
D uration of Therapy: 7 days [facility] ipratropium -albuteroL (DUONEB) 0.5 mg-3 mg(2.5 mg base)/3 mL nebulizer solution 3 mL 10-15 08:07: 12 Yes 3mL 3 mL, Inhalation , QIDPRN, Starting on 10/15/21 at 0207, Until Discontinu ed, Routine, Wheezing, Shortness of Breath, Bronchospa sm [facility] morpHINE injection 4 mg 10-15 08:04: 38 10-19 17:33 :44 No 4mg 4 mg, Slow IV Push, Q4HPRN, Starting on 10/15/21 at 0204, Until 10/19/21 at 1133, Routine, Pain (scale 7-10) [facility] methylPREDN ISolone 4 mg tablets 10-06 00:00: 00 01-15 00:00 :00 No Follow schedule on package instructio ns [facility] methocarbam oL 500 mg tablet 2- 00:00: 00 01-15 00:00 :00 No 500mg Take 1 tablet by mouth. [facility] zolpidem 10 mg tablet - 00:00: 00 01-15 00:00 :00 No 10mg Take 1 tablet by mouth. [facility] ALPRAZolam 1 mg tablet 1- 00:00: 00 01-15 00:00 :00 No 1mg Take 1 tablet by mouth. [facility] FLUoxetine 40 mg capsule 2020-09- 00:00: 00 01-15 00:00 :00 No Take by mouth. [facility] amLODIPine 10 mg tablet 2020-09- 00:00: 00 2024- 05-15 00:00 :00 No 10mg Take 1 tablet by mouth. [facility] medroxyprog esterone 150 mg/mL intramuscul ar suspension 2020-09 0-21 00:00: 00 Yes 1mg/mL Dwayne Myers medroxyprog esterone 150 mg/mL intramuscul ar suspension 2020-09 0-21 00:00: 00 No 1mg/mL medroxyprog esterone 150 mg/mL intramuscul ar suspension 2020-09 0-21 00:00: 00 No 1mg/mL medroxyprog esterone 150 mg/mL intramuscul ar suspension 2020-09 0-21 00:00: 00 No 1mg/mL medroxyprog esterone 150 mg/mL intramuscul ar suspension 2020-09 0-21 00:00: 00 No 1mg/mL metronidazo le 500 mg tablet 2020-09 0-14 00:00: 00 Yes 1mg Dwayne Myers metronidazo le 500 mg tablet 2020-09 0-14 00:00: 00 No 1mg metronidazo le 500 mg tablet 2020-09 0-14 00:00: 00 No 1mg metronidazo le 500 mg tablet 2020-09 0-14 00:00: 00 No 1mg metronidazo le 500 mg tablet 2020-09 0-14 00:00: 00 No 1mg Flagyl 500 mg tablet 2020-09 0-11 00:00: 00 Yes 1mg Dwayne Myers Flagyl 500 mg tablet 2020-09 0-11 00:00: 00 No 1mg Flagyl 500 mg tablet 2020-09 0-11 00:00: 00 No 1mg Flagyl 500 mg tablet 2020-09 0-11 00:00: 00 No 1mg Flagyl 500 mg tablet 2020-09 0-11 00:00: 00 No 1mg medroxyprog esterone 150 mg/mL intramuscul ar suspension 6-24 00:00: 00 Yes 1mg/mL Dwayne Myers medroxyprog esterone 150 mg/mL intramuscul ar suspension 6-24 00:00: 00 No 1mg/mL medroxyprog esterone 150 mg/mL intramuscul ar suspension 6-24 00:00: 00 No 1mg/mL medroxyprog esterone 150 mg/mL intramuscul ar suspension 02-24 00:00: 00 No 1mg/mL medroxyprog esterone 150 mg/mL intramuscul ar suspension 02-24 00:00: 00 No 1mg/mL lurasidone HCl (LATUDA ORAL) 17 10:16: 57 Yes Take by mouth. [facility] betamethaso ne valerate 0.1 % ointment 01-24 00:00: 00 12-05 00:00 :00 No SMILEY EXT AA BID [facility] triamterene -hydrochlor othiazide 37.5-25 mg per capsule 01-24 00:00: 00 12-05 00:00 :00 No TK 1 C PO QAM [facility] DEXILANT 60 mg capsule 9 00:00: 00 12-05 00:00 :00 No TK 1 C PO QD [facility] proMETHazin e 25 mg tablet 11-29 00:00: 00 12-05 00:00 :00 No TK 1 T PO Q 12 H PRN FOR 30 DAYS [facility] amLODIPine 5 mg tablet 11-21 00:00: 00 12-05 00:00 :00 No TK 1 T PO Q NIGHTLY [facility] HYDROcodone -acetaminop hen 10-325 mg tablet 10-11 00:00: 00 10-24 00:00 :00 No 1{tbl} Take 1 tablet by mouth. [facility] Zoloft 100 mg tablet 12-17 00:00: 00 Yes 15mg Dwayne F Louis trazodone 100 mg tablet 12-17 00:00: 00 Yes 51mg Dwayen F Louis Zoloft 100 mg tablet 12-17 00:00: 00 [...] 10-16 00:00: 00 12-05 00:00 :00 No [id number] Apply to area(s) two (2) times daily. [facility] Immunizations Ordered Immunization Name Filled Immunization Name Date Status Comments Source SARS-COV-2 COVID-19 MODERNA VACCINE 2021-03-03 00:00:00 Completed [facility] SARS-COV-2 COVID-19 MODERNA VACCINE 2021-03-03 00:00:00 Completed [facility] SARS-COV-2 COVID-19 MODERNA VACCINE 2021-03-03 00:00:00 Completed [facility] SARS-COV-2 COVID-19 MODERNA VACCINE 2021-03-03 00:00:00 Completed [facility] SARS-COV-2 COVID-19 MODERNA VACCINE 2021-03-03 00:00:00 Completed [facility] SARS-COV-2 COVID-19 MODERNA VACCINE 2021-03-03 00:00:00 Completed [facility] SARS-COV-2 COVID-19 MODERNA 12+ YRS VACCINE 2021-03-03 00:00:00 Completed [facility] SARS-COV-2 COVID-19 MODERNA 12+ YRS VACCINE 2021-03-03 00:00:00 Completed [facility] SARS-COV-2 COVID-19 MODERNA 12+ YRS VACCINE 2021-03-03 00:00:00 Completed [facility] SARS-COV-2 COVID-19 MODERNA 12+ YRS VACCINE 2021-03-03 00:00:00 Completed [facility] SARS-COV-2 COVID-19 MODERNA 12+ YRS VACCINE 2021-03-03 00:00:00 Completed [facility] SARS-COV-2 COVID-19 MODERNA 12+ YRS VACCINE 2021-03-03 00:00:00 Completed [facility] SARS-COV-2 COVID-19 MODERNA 12+ YRS VACCINE 2021-03-03 00:00:00 Completed [facility] SARS-COV-2 COVID-19 MODERNA 12+ YRS VACCINE 2021-03-03 00:00:00 Completed [facility] SARS-COV-2 COVID-19 MODERNA VACCINE 2021-03-03 00:00:00 Completed [facility] SARS-COV-2 COVID-19 MODERNA VACCINE 2021-03-03 00:00:00 Completed [facility] SARS-COV-2 COVID-19 MODERNA VACCINE 2021-03-03 00:00:00 Completed [facility] SARS-COV-2 COVID-19 MODERNA VACCINE 2021-03-03 00:00:00 Completed [facility] SARS-COV-2 COVID-19 MODERNA VACCINE 2021-03-03 00:00:00 Completed [facility] SARS-COV-2 COVID-19 MODERNA VACCINE 2021-03-03 00:00:00 Completed [facility] SARS-COV-2 COVID-19 MODERNA VACCINE 2021-03-03 00:00:00 Completed [facility] SARS-COV-2 COVID-19 MODERNA VACCINE 2021-03-03 00:00:00 Completed [facility] SARS-COV-2 COVID-19 MODERNA VACCINE 2021-03-03 00:00:00 Completed [facility] SARS-COV-2 COVID-19 MODERNA VACCINE 2021-03-03 00:00:00 Completed [facility] SARS-COV-2 COVID-19 MODERNA VACCINE 2021-03-03 00:00:00 Completed [facility] SARS-COV-2 COVID-19 MODERNA VACCINE 2021-03-03 00:00:00 Completed [facility] SARS-COV-2 COVID-19 MODERNA VACCINE 2021-02-01 00:00:00 Completed [facility] SARS-COV-2 COVID-19 MODERNA VACCINE 2021-02-01 00:00:00 Completed [facility] SARS-COV-2 COVID-19 MODERNA VACCINE 2021-02-01 00:00:00 Completed [facility] SARS-COV-2 COVID-19 MODERNA VACCINE 2021-02-01 00:00:00 Completed [facility] SARS-COV-2 COVID-19 MODERNA VACCINE 2021-02-01 00:00:00 Completed [facility] SARS-COV-2 COVID-19 MODERNA VACCINE 2021-02-01 00:00:00 Completed [facility] SARS-COV-2 COVID-19 MODERNA 12+ YRS VACCINE 2021-02-01 00:00:00 Completed [facility] SARS-COV-2 COVID-19 MODERNA 12+ YRS VACCINE 2021-02-01 00:00:00 Completed [facility] SARS-COV-2 COVID-19 MODERNA 12+ YRS VACCINE 2021-02-01 00:00:00 Completed [facility] SARS-COV-2 COVID-19 MODERNA 12+ YRS VACCINE 2021-02-01 00:00:00 Completed [facility] SARS-COV-2 COVID-19 MODERNA 12+ YRS VACCINE 2021-02-01 00:00:00 Completed [facility] SARS-COV-2 COVID-19 MODERNA 12+ YRS VACCINE 2021-02-01 00:00:00 Completed [facility] SARS-COV-2 COVID-19 MODERNA 12+ YRS VACCINE 2021-02-01 00:00:00 Completed [facility] SARS-COV-2 COVID-19 MODERNA 12+ YRS VACCINE 2021-02-01 00:00:00 Completed [facility] SARS-COV-2 COVID-19 MODERNA VACCINE 2021-02-01 00:00:00 Completed [facility] SARS-COV-2 COVID-19 MODERNA VACCINE 2021-02-01 00:00:00 Completed [facility] SARS-COV-2 COVID-19 MODERNA VACCINE 2021-02-01 00:00:00 Completed [facility] SARS-COV-2 COVID-19 MODERNA VACCINE 2021-02-01 00:00:00 Completed [facility] SARS-COV-2 COVID-19 MODERNA VACCINE 2021-02-01 00:00:00 Completed [facility] SARS-COV-2 COVID-19 MODERNA VACCINE 2021-02-01 00:00:00 Completed [facility] SARS-COV-2 COVID-19 MODERNA VACCINE 2021-02-01 00:00:00 Completed [facility] SARS-COV-2 COVID-19 MODERNA VACCINE 2021-02-01 00:00:00 Completed [facility] SARS-COV-2 COVID-19 MODERNA VACCINE 2021-02-01 00:00:00 Completed [facility] SARS-COV-2 COVID-19 MODERNA VACCINE 2021-02-01 00:00:00 Completed [facility] SARS-COV-2 COVID-19 MODERNA VACCINE 2021-02-01 00:00:00 Completed [facility] SARS-COV-2 COVID-19 MODERNA VACCINE 2021-02-01 00:00:00 Completed [facility] Influenza, seasonal, inj Influenza, seasonal, inj 2020-09-02 00:00:00 Completed Dwayne Myers Influenza, seasonal, inj 2020-09-02 00:00:00 Completed Influenza, seasonal, inj 2020-09-02 00:00:00 Completed Influenza, seasonal, inj 2020-09-02 00:00:00 Completed Influenza, seasonal, inj 2020-09-02 00:00:00 Completed Influenza Virus Vaccine 2007-07-02 00:00:00 Completed [facility] Influenza Virus Vaccine 2007-07-02 00:00:00 Completed [facility] Influenza Virus Vaccine 2007-07-02 00:00:00 Completed [facility] Influenza Virus Vaccine 2007-07-02 00:00:00 Completed [facility] Influenza Virus Vaccine 2007-07-02 00:00:00 Completed [facility] Influenza Virus Vaccine 2007-07-02 00:00:00 Completed [facility] Influenza Virus Vaccine 2007-07-02 00:00:00 Completed [facility] Influenza Virus Vaccine 2007-07-02 00:00:00 Completed [facility] Influenza Virus Vaccine 2007-07-02 00:00:00 Completed [facility] Influenza Virus Vaccine 2007-07-02 00:00:00 Completed [facility] Influenza Virus Vaccine 2007-07-02 00:00:00 Completed [facility] Influenza Virus Vaccine 2007-07-02 00:00:00 Completed [facility] Influenza Virus Vaccine 2007-07-02 00:00:00 Completed [facility] Influenza Virus Vaccine 2007-07-02 00:00:00 Completed [facility] Influenza Virus Vaccine 2007-07-02 00:00:00 Completed [facility] Influenza Virus Vaccine 2007-07-02 00:00:00 Completed [facility] Influenza Virus Vaccine 2007-07-02 00:00:00 Completed [facility] Influenza Virus Vaccine 2007-07-02 00:00:00 Completed [facility] Influenza Virus Vaccine 2007-07-02 00:00:00 Completed [facility] Influenza Virus Vaccine 2007-07-02 00:00:00 Completed [facility] Influenza Virus Vaccine 2007-07-02 00:00:00 Completed [facility] Influenza Virus Vaccine 2007-07-02 00:00:00 Completed [facility] Influenza Virus Vaccine 2007-07-02 00:00:00 Completed [facility] Influenza Virus Vaccine 2007-07-02 00:00:00 Completed [facility] Influenza Virus Vaccine 2007-07-02 00:00:00 Completed [facility] Influenza Virus Vaccine 2007-07-02 00:00:00 Completed [facility] Influenza Virus Vaccine 2007-07-02 00:00:00 Completed [facility] Influenza Virus Vaccine Unknown Completed [facility] SARS-COV-2 COVID-19 MODERNA 12+ YRS VACCINE Unknown Completed [facility] Influenza Virus Vaccine Unknown Completed [facility] SARS-COV-2 COVID-19 MODERNA 12+ YRS VACCINE Unknown Completed [facility] Influenza Virus Vaccine Unknown Completed [facility] SARS-COV-2 COVID-19 MODERNA 12+ YRS VACCINE Unknown Completed [facility] Influenza Virus Vaccine Unknown Completed [facility] SARS-COV-2 COVID-19 MODERNA 12+ YRS VACCINE Unknown Completed [facility] Influenza Virus Vaccine Unknown Completed [facility] SARS-COV-2 COVID-19 MODERNA 12+ YRS VACCINE Unknown Completed [facility] Influenza Virus Vaccine Unknown Completed [facility] SARS-COV-2 COVID-19 MODERNA 12+ YRS VACCINE Unknown Completed [facility] Influenza Virus Vaccine Unknown Completed [facility] SARS-COV-2 COVID-19 MODERNA 12+ YRS VACCINE Unknown Completed [facility] Vital Signs Vital Name Observation Time Observation Value Comments Anjum veras Height 2024-06-19 06:59:00 160.02 CM Weight 2024-06-19 06:59:00 89.5 KG Height 2024-06-05 06:56:00 160.02 CM Weight 2024-06-05 06:56:00 85.7 KG Height 2024-06-05 06:56:00 160.02 CM Weight 2024-06-05 06:56:00 85.7 KG Systolic blood pressure 2024-03-23 01:00:00 151 mm[Hg] [facility] Diastolic blood pressure 2024-03-23 01:00:00 99 mm[Hg] [facility] Heart rate 2024-03-23 01:00:00 79 [facility] Respiratory rate 2024-03-23 01:00:00 16 /min [facility] Oxygen saturation in Arterial blood by Pulse oximetry 2024-03-23 01:00:00 99 /min [facility] Body temperature 2024-03-22 22:07:00 37 Carleen [facility] Body height 2024-03-22 22:07:00 160 cm [facility] Body weight 2024-03-22 22:07:00 88.451 kg [facility] BMI 2024-03-22 22:07:00 34.54 kg/m2 [facility] Systolic blood pressure 2024-03-22 14:35:00 127 mm[Hg] [facility] Diastolic blood pressure 2024-03-22 14:35:00 80 mm[Hg] [facility] Heart rate 2024-03-22 14:35:00 77 /min [facility] Body temperature 2024-03-22 14:35:00 36.83 Carleen [facility] Respiratory rate 2024-03-22 14:35:00 20 /min [facility] Oxygen saturation in Arterial blood by Pulse oximetry 2024-03-22 14:35:00 99 /min [facility] Body height 2024-03-22 11:27:00 160 cm [facility] Body weight 2024-03-22 11:27:00 88.724 kg [facility] BMI 2024-03-22 11:27:00 34.65 kg/m2 [facility] Systolic blood pressure 2024-01-16 14:22:00 130 mm[Hg] [facility] Diastolic blood pressure 2024-01-16 14:22:00 83 mm[Hg] [facility] Heart rate 2024-01-16 14:22:00 73 /min [facility] Respiratory rate 2024-01-16 14:22:00 20 /min [facility] Body height 2024-01-16 14:22:00 160 cm [facility] Body weight 2024-01-16 14:22:00 81.557 kg [facility] BMI 2024-01-16 14:22:00 31.85 kg/m2 [facility] Oxygen saturation in Arterial blood by Pulse oximetry 2024-01-16 14:22:00 100 /min [facility] Systolic blood pressure 2023-10-13 01:23:00 153 mm[Hg] [facility] Diastolic blood pressure 2023-10-13 01:23:00 109 mm[Hg] [facility] Heart rate 2023-10-13 01:21:00 75 /min Unive [facility] Body temperature 2023-10-13 01:21:00 37 Carleen [facility] Respiratory rate 2023-10-13 01:21:00 18 /min [facility] Body height 2023-10-13 01:21:00 160 cm [facility] Body weight 2023-10-13 01:21:00 83.008 kg [facility] BMI 2023-10-13 01:21:00 32.42 kg/m2 [facility] Oxygen saturation in Arterial blood by Pulse oximetry 2023-10-13 01:21:00 100 /min [facility] Weight 2023-06-03 21:47:00 90.1 KG Weight 2023-06-03 21:47:00 90.1 KG Height 2023-05-04 15:00:00 162.56 CM Weight 2023-05-04 15:00:00 85 KG Height 2023-04-14 22:00:00 160.02 CM Weight 2023-04-14 22:00:00 86.45 KG Height 2023-02-08 07:40:00 160.02 CM Weight 2023-02-08 07:40:00 91.6 KG Height 2022-12-11 20:32:00 13.46 CM Weight 2022-12-11 20:32:00 86.63 KG Systolic blood pressure 2022-12-11 00:01:00 163 mm[Hg] [facility] Diastolic blood pressure 2022-12-11 00:01:00 96 mm[Hg] [facility] Heart rate 2022-12-11 00:01:00 79 /min Unive [facility] Body temperature 2022-12-11 00:01:00 37.22 Carleen [facility] Respiratory rate 2022-12-11 00:01:00 20 /min [facility] Body height 2022-12-11 00:01:00 160 cm [facility] Body weight 2022-12-11 00:01:00 87 kg [facility] BMI 2022-12-11 00:01:00 33.98 kg/m2 [facility] Oxygen saturation in Arterial blood by Pulse oximetry 2022-12-11 00:01:00 99 /min [facility] Systolic blood pressure 2022-11-05 21:43:00 123 mm[Hg] [facility] Diastolic blood pressure 2022-11-05 21:43:00 84 mm[Hg] [facility] Heart rate 2022-11-05 21:43:00 59 /min [facility] Body temperature 2022-11-05 21:43:00 36.44 Carleen [facility] Oxygen saturation in Arterial blood by Pulse oximetry 2022-11-05 21:43:00 97 /min [facility] Respiratory rate 2022-11-05 17:22:00 17 /min [facility] Body height 2022-11-05 03:54:00 160 cm [facility] Body weight 2022-11-05 03:54:00 87.091 kg [facility] BMI 2022-11-05 03:54:00 34.01 kg/m2 [facility] Height 2022-08-17 11:26:00 Weight 2022-08-17 11:26:00 Systolic blood pressure 2022-07-27 13:18:00 146 mm[Hg] [facility] Diastolic blood pressure 2022-07-27 13:18:00 91 mm[Hg] [facility] Heart rate 2022-07-27 13:18:00 78 /min [facility] Body temperature 2022-07-27 13:18:00 36.44 Carleen [facility] Respiratory rate 2022-07-27 13:18:00 18 /min [facility] Oxygen saturation in Arterial blood by Pulse oximetry 2022-07-27 13:18:00 94 /min [facility] Body height 2022-07-26 05:22:00 160 cm [facility] Body weight 2022-07-26 05:22:00 97.977 kg [facility] BMI 2022-07-26 05:22:00 38.26 kg/m2 [facility] Height 2022-07-20 13:40:00 160.02 CM Weight 2022-07-20 13:40:00 89.81 KG Height 2022-07-20 11:04:00 160.02 CM Weight 2022-07-20 11:04:00 81.64 KG Systolic blood pressure 2022-06-26 00:42:00 132 mm[Hg] [facility] Diastolic blood pressure 2022-06-26 00:42:00 81 mm[Hg] [facility] Heart rate 2022-06-26 00:42:00 104 /min [facility] Body temperature 2022-06-26 00:42:00 36.67 Carleen [facility] Respiratory rate 2022-06-26 00:42:00 18 /min [facility] Oxygen saturation in Arterial blood by Pulse oximetry 2022-06-26 00:42:00 96 /min [facility] Body height 2022-06-25 00:54:00 160 cm [facility] Body weight 2022-06-25 00:54:00 98.884 kg [facility] BMI 2022-06-25 00:54:00 38.62 kg/m2 [facility] Height 2022-06-23 19:31:00 160.02 CM Weight 2022-06-23 19:31:00 86.18 KG Weight 2022-06-21 20:00:00 98.88 KG Height 2022-06-12 15:55:00 160.02 CM Weight 2022-06-12 15:55:00 81.64 KG Systolic blood pressure 2022-06-01 03:00:00 167 mm[Hg] [facility] Diastolic blood pressure 2022-06-01 03:00:00 102 mm[Hg] [facility] Heart rate 2022-06-01 03:00:00 94 /min [facility] Respiratory rate 2022-06-01 03:00:00 20 /min [facility] Oxygen saturation in Arterial blood by Pulse oximetry 2022-06-01 03:00:00 98 /min [facility] Body height 2022-06-01 01:17:00 160 cm [facility] Body weight 2022-06-01 01:17:00 89.812 kg [facility] BMI 2022-06-01 01:17:00 35.07 kg/m2 [facility] Height 2022-04-05 15:26:00 160.02 CM Weight 2022-04-05 15:26:00 90.26 KG Systolic blood pressure 2022-02-26 13:59:00 136 mm[Hg] [facility] Diastolic blood pressure 2022-02-26 13:59:00 101 mm[Hg] [facility] Heart rate 2022-02-26 13:59:00 79 /min [facility] Body temperature 2022-02-26 13:59:00 36.78 Carleen [facility] Respiratory rate 2022-02-26 13:59:00 20 /min [facility] Oxygen saturation in Arterial blood by Pulse oximetry 2022-02-26 13:59:00 100 /min [facility] Body height 2022-02-26 04:37:00 160 cm [facility] Body weight 2022-02-26 04:37:00 92.08 kg [facility] BMI 2022-02-26 04:37:00 35.96 kg/m2 [facility] Systolic blood pressure 2022-02-23 06:00:00 115 mm[Hg] [facility] Diastolic blood pressure 2022-02-23 06:00:00 83 mm[Hg] [facility] Heart rate 2022-02-23 06:00:00 62 [facility] Respiratory rate 2022-02-23 06:00:00 18 /min [facility] Oxygen saturation in Arterial blood by Pulse oximetry 2022-02-23 06:00:00 97 /min [facility] Body temperature 2022-02-23 02:45:00 37.83 Carleen [facility] Body height 2022-02-23 02:45:00 160 cm [facility] Body weight 2022-02-23 02:45:00 92.08 kg [facility] BMI 2022-02-23 02:45:00 35.96 kg/m2 [facility] Systolic blood pressure 2022-01-29 21:54:12 118 mm[Hg] [facility] Diastolic blood pressure 2022-01-29 21:54:12 74 mm[Hg] [facility] Heart rate 2022-01-29 21:54:12 98 /min [facility] Respiratory rate 2022-01-29 21:54:12 24 /min [facility] Oxygen saturation in Arterial blood by Pulse oximetry 2022-01-29 21:54:12 98 /min [facility] Body temperature 2022-01-29 18:53:00 37 Carleen [facility] Body height 2022-01-29 18:53:00 160 cm [facility] Body weight 2022-01-29 18:53:00 90.719 kg [facility] BMI 2022-01-29 18:53:00 35.43 kg/m2 [facility] Systolic blood pressure 2022-01-29 15:01:00 138 mm[Hg] [facility] Diastolic blood pressure 2022-01-29 15:01:00 82 mm[Hg] [facility] Heart rate 2022-01-29 15:01:00 88 /min Un[facility] Respiratory rate 2022-01-29 15:01:00 15 /min [facility] Oxygen saturation in Arterial blood by Pulse oximetry 2022-01-29 15:01:00 96 /min [facility] Body temperature 2022-01-29 12:58:00 36.61 Carleen [facility] Body weight 2022-01-29 12:58:00 81.647 kg [facility] BMI 2022-01-29 12:58:00 31.89 kg/m2 [facility] Height 2022-01-05 08:28:00 160.02 CM Weight 2022-01-05 08:28:00 81.64 KG Systolic blood pressure 2022-01-03 04:43:12 152 mm[Hg] [facility] Diastolic blood pressure 2022-01-03 04:43:12 112 mm[Hg] [facility] Body temperature 2022-01-03 04:43:12 37.28 Carleen [facility] Respiratory rate 2022-01-03 04:43:12 17 /min [facility] Heart rate 2022-01-03 04:42:33 88 /min [facility] Oxygen saturation in Arterial blood by Pulse oximetry 2022-01-03 04:42:33 97 /min [facility] Body height 2022-01-03 02:36:00 160 cm [facility] Body weight 2022-01-03 02:36:00 81.647 kg [facility] BMI 2022-01-03 02:36:00 31.89 kg/m2 [facility] Body temperature 2021-12-07 13:30:00 37.17 Carleen [facility] Respiratory rate 2021-12-07 13:30:00 23 /min [facility] Oxygen saturation in Arterial blood by Pulse oximetry 2021-12-07 13:14:00 97 /min [facility] Systolic blood pressure 2021-12-07 09:00:00 157 mm[Hg] [facility] Diastolic blood pressure 2021-12-07 09:00:00 99 mm[Hg] [facility] Heart rate 2021-12-07 09:00:00 82 /min Unive [facility] Body weight 2021-12-07 08:10:00 95.709 kg [facility] BMI 2021-12-07 08:10:00 37.38 kg/m2 [facility] Body height 2021-12-06 06:30:00 160 cm [facility] Systolic blood pressure 2021-12-05 09:10:00 126 mm[Hg] [facility] Diastolic blood pressure 2021-12-05 09:10:00 71 mm[Hg] [facility] Heart rate 2021-12-05 09:10:00 85 /min [facility] Body temperature 2021-12-05 09:10:00 36.83 Carleen [facility] Respiratory rate 2021-12-05 09:10:00 18 /min [facility] Oxygen saturation in Arterial blood by Pulse oximetry 2021-12-05 09:10:00 96 /min [facility] Body height 2021-12-03 23:16:00 160 cm [facility] Body weight 2021-12-03 23:16:00 81.647 kg [facility] BMI 2021-12-03 23:16:00 31.89 kg/m2 [facility] Systolic blood pressure 2021-11-11 18:12:00 152 mm[Hg] [facility] Diastolic blood pressure 2021-11-11 18:12:00 93 mm[Hg] [facility] Heart rate 2021-11-11 18:12:00 108 /min Unive [facility] Body temperature 2021-11-11 18:12:00 37.06 Carleen [facility] Respiratory rate 2021-11-11 18:12:00 20 /min [facility] Oxygen saturation in Arterial blood by Pulse oximetry 2021-11-11 18:12:00 95 /min [facility] Body height 2021-11-10 17:22:00 160 cm [facility] Body weight 2021-11-10 17:22:00 91 kg [facility] BMI 2021-11-10 17:22:00 35.54 kg/m2 [facility] Systolic blood pressure 2021-10-24 17:05:00 143 mm[Hg] [facility] Diastolic blood pressure 2021-10-24 17:05:00 90 mm[Hg] [facility] Heart rate 2021-10-24 17:05:00 103 /min Unive [facility] Body temperature 2021-10-24 17:05:00 36.22 Carleen [facility] Respiratory rate 2021-10-24 17:05:00 18 /min [facility] Oxygen saturation in Arterial blood by Pulse oximetry 2021-10-24 17:05:00 95 /min [facility] Body weight 2021-10-22 10:08:00 71.215 kg bed scale [facility] BMI 2021-10-22 10:08:00 28.72 kg/m2 [facility] Body height 2021-10-17 14:00:00 157.5 cm [facility] Systolic blood pressure 2021-10-21 15:36:00 129 mm[Hg] [facility] Diastolic blood pressure 2021-10-21 15:36:00 82 mm[Hg] [facility] Heart rate 2021-10-21 15:36:00 100 /min Unive [facility] Respiratory rate 2021-10-21 15:36:00 20 /min [facility] Oxygen saturation in Arterial blood by Pulse oximetry 2021-10-21 15:36:00 100 /min [facility] Body temperature 2021-10-21 13:07:00 36.83 Carleen [facility] Body height 2021-10-17 14:00:00 157.5 cm [facility] Body weight 2021-10-17 14:00:00 99.791 kg [facility] BMI 2021-10-17 14:00:00 28.72 kg/m2 [facility] BP Systolic 2024-05-13 17:21:00 126 mm[Hg] Step hen F [facility] BP Diastolic 2024-05-13 17:21:00 83 mm[Hg] Madan phen F [facility] Weight Measured 2024-05-13 17:21:00 183.80 pounds Dwayne F [facility] Height Measured 2024-05-13 17:21:00 65.10 inches Dwayne F [facility] Body Temperature 2024-05-13 17:21:00 97.80 degrees Dwayne F [facility] Heart Rate 2024-05-13 17:21:00 70.00 /min Deja en F [facility] Respiratory Rate 2024-05-13 17:21:00 18.00 /min Dwayne F [facility] BP Systolic 2024-04-16 11:34:00 152 mm[Hg] Step hen F [facility] BP Diastolic 2024-04-16 11:34:00 91 mm[Hg] Madan phen F [facility] Weight Measured 2024-04-16 11:34:00 184.80 pounds Dwayne F [facility] Height Measured 2024-04-16 11:34:00 65.10 inches Dwayne F [facility] Body Temperature 2024-04-16 11:34:00 98.10 degrees Dwayne F [facility] Heart Rate 2024-04-16 11:34:00 74.00 /min Deja en F [facility] Respiratory Rate 2024-04-16 11:34:00 18.00 /min Dwayne F [facility] BP Systolic 2024-04-15 11:14:00 127 mm[Hg] Step hen F [facility] BP Diastolic 2024-04-15 11:14:00 77 mm[Hg] Madan phen F [facility] Weight Measured 2024-04-15 11:14:00 184.80 pounds Dwayne F [facility] Height Measured 2024-04-15 11:14:00 65.10 inches Dwayne F [facility] Body Temperature 2024-04-15 11:14:00 98.20 degrees Dwayne F [facility] Heart Rate 2024-04-15 11:14:00 75.00 /min Deja en F [facility] Respiratory Rate 2024-04-15 11:14:00 19.00 /min Dwayne F [facility] BP Systolic 2024-04-08 11:35:00 130 mm[Hg] Step hen F [facility] BP Diastolic 2024-04-08 11:35:00 88 mm[Hg] Madan phen F [facility] Weight Measured 2024-04-08 11:35:00 184.60 pounds Dwayne F [facility] Height Measured 2024-04-08 11:35:00 65.10 inches Dwayne F [facility] Body Temperature 2024-04-08 11:35:00 97.40 degrees Dwayne F [facility] Heart Rate 2024-04-08 11:35:00 84.00 /min Deja en F [facility] Respiratory Rate 2024-04-08 11:35:00 18.00 /min Dwayne F [facility] BP Systolic 2024-03-31 16:24:00 165 mm[Hg] Step hen F [facility] BP Diastolic 2024-03-31 16:24:00 103 mm[Hg] Madan phen F [facility] Weight Measured 2024-03-31 16:24:00 187.60 pounds Dwayne F [facility] Height Measured 2024-03-31 16:24:00 65.10 inches Dwayne F [facility] Body Temperature 2024-03-31 16:24:00 97.50 degrees Dwayne F [facility] Heart Rate 2024-03-31 16:24:00 87.00 /min Deja en F [facility] Respiratory Rate 2024-03-31 16:24:00 18.00 /min Dwayne F [facility] BP Systolic 2024-01-03 13:17:00 115 mm[Hg] Step hen F [facility] BP Diastolic 2024-01-03 13:17:00 75 mm[Hg] Madan phen F [facility] Weight Measured 2024-01-03 13:17:00 180.00 pounds Dwayne F [facility] Height Measured 2024-01-03 13:17:00 65.10 inches Dwayne F Louis Body Temperature 2024-01-03 13:17:00 97.90 degrees Dwayne F Louis Heart Rate 2024-01-03 13:17:00 79.00 /min Deja en F [facility] Respiratory Rate 2024-01-03 13:17:00 Dwayne F Louis BP Systolic 2023-12-31 13:28:00 120 mm[Hg] Step hen F [facility] BP Diastolic 2023-12-31 13:28:00 82 mm[Hg] Madan phen F [facility] Weight Measured 2023-12-31 13:28:00 179.80 pounds Dwayne F Louis Height Measured 2023-12-31 13:28:00 65.10 inches Dwayne F Louis Body Temperature 2023-12-31 13:28:00 96.90 degrees Dwayne F Louis Heart Rate 2023-12-31 13:28:00 77.00 /min Deja en F [facility] Respiratory Rate 2023-12-31 13:28:00 Dwayne F Louis BP Systolic 2023-12-10 15:44:00 141 mm[Hg] Step hen F [facility] BP Diastolic 2023-12-10 15:44:00 100 mm[Hg] Madan phen F [facility] Weight Measured 2023-12-10 15:44:00 178.80 pounds Dwayne F Louis Height Measured 2023-12-10 15:44:00 65.10 inches Dwayne F Louis Body Temperature 2023-12-10 15:44:00 97.30 degrees Dwayne F Louis Heart Rate 2023-12-10 15:44:00 74.00 /min Deja en F [facility] Respiratory Rate 2023-12-10 15:44:00 19.00 /min Dwayne F [facility] BP Systolic 2023-12-10 15:33:00 141 mm[Hg] Step hen F [facility] BP Diastolic 2023-12-10 15:33:00 100 mm[Hg] Madan phen F [facility] Weight Measured 2023-12-10 15:33:00 178.80 pounds Dwayne F Louis Height Measured 2023-12-10 15:33:00 65.10 inches Dwayne F Louis Body Temperature 2023-12-10 15:33:00 97.30 degrees Dwayne F Louis Heart Rate 2023-12-10 15:33:00 74.00 /min Deja en F Louis Respiratory Rate 2023-12-10 15:33:00 19.00 /min Dwayne F [facility] BP Systolic 2023-09-25 08:45:00 131 mm[Hg] Step hen F [facility] BP Diastolic 2023-09-25 08:45:00 87 mm[Hg] Madan phen F [facility] Weight Measured 2023-09-25 08:45:00 189.40 pounds Dwayne F Louis Height Measured 2023-09-25 08:45:00 65.10 inches Dwayne F Louis Body Temperature 2023-09-25 08:45:00 97.90 degrees Dwayne F Louis Heart Rate 2023-09-25 08:45:00 84.00 /min Deja en F Louis Respiratory Rate 2023-09-25 08:45:00 18.00 /min Dwayne F [facility] BP Systolic 2023-08-23 14:18:00 145 mm[Hg] Step hen F Louis BP Diastolic 2023-08-23 14:18:00 89 mm[Hg] Madan phen F [facility] Weight Measured 2023-08-23 14:18:00 189.20 pounds Dwayne F Louis Height Measured 2023-08-23 14:18:00 65.10 inches Dwayne F Louis Body Temperature 2023-08-23 14:18:00 98.10 degrees Dwayne F Louis Heart Rate 2023-08-23 14:18:00 86.00 /min Deja en F Louis Respiratory Rate 2023-08-23 14:18:00 19.00 /min Dwayne F [facility] BP Systolic 2023-07-30 11:28:00 137 mm[Hg] Step hen F Louis BP Diastolic 2023-07-30 11:28:00 83 mm[Hg] Madan phen F [facility] Weight Measured 2023-07-30 11:28:00 188.60 pounds Dwayne F Louis Height Measured 2023-07-30 11:28:00 65.10 inches Dwayne F Louis Body Temperature 2023-07-30 11:28:00 98.20 degrees Dwayne F Louis Heart Rate 2023-07-30 11:28:00 85.00 /min Deja en F Louis Respiratory Rate 2023-07-30 11:28:00 18.00 /min Dwayne F [facility] BP Systolic 2023-07-23 13:48:00 126 mm[Hg] Step hen F [facility] BP Diastolic 2023-07-23 13:48:00 79 mm[Hg] Madan phen F [facility] Weight Measured 2023-07-23 13:48:00 183.80 pounds Dwayne F Louis Height Measured 2023-07-23 13:48:00 65.10 inches Dwayne F Louis Body Temperature 2023-07-23 13:48:00 97.30 degrees Dwayne F Louis Heart Rate 2023-07-23 13:48:00 85.00 /min Deja en F Louis Respiratory Rate 2023-07-23 13:48:00 Dwayne F Louis BP Systolic 2023-07-10 15:03:00 138 mm[Hg] Step hen F Louis BP Diastolic 2023-07-10 15:03:00 95 mm[Hg] Madan phen F Louis Weight Measured 2023-07-10 15:03:00 192.58 pounds Dwayne F Louis Height Measured 2023-07-10 15:03:00 65.10 inches Dwayne F Louis Body Temperature 2023-07-10 15:03:00 98.20 degrees Dwayne F Louis Heart Rate 2023-07-10 15:03:00 75.00 /min Deja en F Louis Respiratory Rate 2023-07-10 15:03:00 18.00 /min Dwayne F Louis BP Systolic 2023-07-10 14:56:00 138 mm[Hg] Step hen F Louis BP Diastolic 2023-07-10 14:56:00 95 mm[Hg] Madan phen F [facility] Weight Measured 2023-07-10 14:56:00 192.58 pounds Dwayne F Louis Height Measured 2023-07-10 14:56:00 65.10 inches Dwayne F Louis Body Temperature 2023-07-10 14:56:00 98.20 degrees Dwayne F Louis Heart Rate 2023-07-10 14:56:00 75.00 /min Deja en F Louis Respiratory Rate 2023-07-10 14:56:00 18.00 /min Dwayne F Louis BP Systolic 2023-06-26 11:11:00 157 mm[Hg] Step hen F Louis BP Diastolic 2023-06-26 11:11:00 98 mm[Hg] Madan phen F Louis Weight Measured 2023-06-26 11:11:00 184.80 pounds Dwayne F Louis Height Measured 2023-06-26 11:11:00 65.10 inches Dwayne F Louis Body Temperature 2023-06-26 11:11:00 97.40 degrees Dwayneomayra Myers Heart Rate 2023-06-26 11:11:00 67.00 /min Dejaannelise Myers Respiratory Rate 2023-06-26 11:11:00 Dwayne Myers BP Systolic 2022-09-25 11:01:00 155 mm[Hg] BP [...] Date / Time Performed Performing Clinician Source INTRO AIF SP CANAL PERQ APPROACH 2024-06-19 00:00:00 [facility] INTRO ANEST AGENT SPINAL CANAL PERQ 2024-06-19 00:00:00 [facility] INTRO AIF JOINTS PERQ APPROACH 2024-06-05 06:45:00 [facility] INTRO ANESTHETIC AGENT JOINTS PERQ 2024-06-05 06:45:00 [facility] INTRO AIF JOINTS PERQ APPROACH 2024-06-05 06:45:00 [facility] INTRO ANESTHETIC AGENT JOINTS PERQ 2024-06-05 06:45:00 [facility] [id number] Ultrasound, Abdominal, Real Time With Image Documentation; Complete 2024-04-10 00:00:00 Dwayne F Louis LIPASE 2024-03-22 23:03:00 Jimy Cameron [facility] TROPONIN I 2024-03-22 23:03:00 Jimy Cameron [facility] COMP. METABOLIC PANEL ([id number]) 2024-03-22 23:03:00 Jimy Cameron [facility] CBC WITH DIFF 2024-03-22 23:03:00 [facility]24-03-22 23:03:00 [facility] R[facility]P SCREEN FOR GROUP A 2024-03-22 11:34:00 Gabriel Garcia [facility] INFLUENZA A/B RSV COVID NAAT 2024-03-22 11:34:00 Gabriel Garcia [facility] XR ANKLE 3+ VW RIGHT 2023-10-13 02:37:00 Eloy Shipley [facility] XR FEMUR 2 VW RIGHT 2023-10-13 02:37:00 María Shipley [facility] XR HIPS 2 VW RIGHT 2023-10-13 02:37:00 Kavitha Shipley [facility] XR KNEE 3 VW RIGHT 2023-10-13 02:37:00 Nelson Hernandez [facility] CONSENT/REFUSAL FOR DIAGNOSIS AND TREATMENT 2023-10-13 00:49:50 Doctor Unassigned, [place] [facility] REFERRAL- REQUEST/RESPONSE 2023-08-23 06:01:00 Doctor Unassigned, [place] [facility] DESTRUCT LUMBAR NERVE PERQ APPROACH 2023-02-08 00:00:00 [facility] REFERRAL- REQUEST/RESPONSE 2022-12-25 05:01:00 Doctor Unassigned, [place] [facility] XR KNEE 3 VW RIGHT 2022-12-11 00:44:07 Oren Tovar [facility] NOTICE OF PRIVACY PRACTICES 2022-12-10 23:48:22 Doctor Unassigned, [place] [facility] CONSENT/REFUSAL FOR DIAGNOSIS AND TREATMENT 2022-12-10 23:47:38 Doctor Unassigned, [place] [facility] AUTHORIZATION FOR RELEASE OF PHI 2022-11-22 05:01:00 Doctor Unassigned, [place] [facility] TROPONIN I 2022-11-05 20:53:00 Zelda Olsen [facility] TROPONIN I 2022-11-05 14:07:00 Zelda Olsen [facility] THYROID STIMULATING HORMONE 2022-11-05 14:07:00 Nichole Weldon [facility] EKG-12 LEAD 2022-11-05 13:47:04 [facility] CHEST PULMONARY ANGIOGRAM 2022-11-05 09:00:08 Yuniel Mccray [facility] TEST, SERUM 2022-11-05 07:07:00 Tiffani Mccray [facility] TROPONIN I 2022-11-05 07:07:00 [facility] COMP. METABOLIC PANEL ([id number]) 2022-11-05 07:07:00 Yuniel Mccray [facility] CBC WITH DIFF 2022-11-05 07:07:00 Yuniel Mccray [facility] PROTHROMBIN TIME / INR 2022-11-05 07:07:00 Kelvin Mccray [facility] D-DIMER 2022-11-05 07:07:00 [facility] ACTIVATED PARTIAL THRMPLAS ANTONINO 2022-11-05 07:07:00 Yuniel Mccray [facility] N-TERMINAL PRO-BNP 2022-11-05 07:07:00 Yuniel Mccray [facility] XR CHEST 1 VW 2022-11-05 04:39:20 Yuniel Mccray [facility] COVID-19 (ID NOW RAPID TESTING) 2022-11-05 04:33:00 Yuniel Mccray [facility] CONSENT/REFUSAL FOR DIAGNOSIS AND TREATMENT 2022-11-05 03:43:00 Doctor Unassigned, [place] [facility] INTRO ANES AGT PERIPH NRV\\T\\PLEXI PC 2022-08-17 00:00:00 [facility] INTRO AIF PERIPH NRV PLEXI PERQ 2022-08-17 00:00:00 [facility] TRANSTHORACIC ECHO (TTE) LIMITED 2022-07-26 17:38:46 [facility] 2022-07-26 04:19[facility] 2022-07-26 03:22:22 Ced Hernández [facility] XR CHEST 1 VW 2022-07-26 02:35[facility] 2022-07-26 02:27:00 Jamia Benson [facility] TEST, SERUM 2022-07-26 02:27:[facility]22-07-26 02:27:00 [facility] COMP. METABOLIC PANEL ([id number]) 2022-07-26 02:27:00 Glenna [facility] CBC WITH DIFF 2022-07-26 02:27:00 [facility] D-DIMER 2022-07-26 02:27:00 Glenna [facility] RAPID INFLUENZA A/B 2022-07-26 02:27:00 Sabianism [facility] N-TERMINAL PRO-BNP 2022-07-26 02:27:00 Ced Hernández [facility] COVID-19 (ID NOW RAPID TESTING) 2022-07-26 02:27[facility] 2022-07-26 02:27:00 Glenna [facility] POCT TEST 2022-07-26 02:25:00 [facility] CONSENT/REFUSAL FOR DIAGNOSIS AND TREATMENT 2022-07-26 01:46:49 Doctor Unassigned, [place] [facility] INTRO DSTRUC AGT CL NRV PLEXI PC 2022-07-20 00:00:00 [facility] TROPONIN I 2022-06-25 13:36:00 Anaya Kline [facility] THYROID STIMULATING HORMONE 2022-06-25 13:36:00 Shakira Lucas [facility] TROPONIN I 2022-06-25 10:40:00 [facility] 2022-06-25 08:02:00 Vi Kline [facility] EKG-12 LEAD 2022-06-25 05:02:32 Jaden Siddiqui [facility] URINALYSIS 2022-06-25 03:47:00 Jaden Siddiqui [facility] TROPONIN I 2022-06-25 03:35:00 Jaden Siddiqui [facility] COMP. METABOLIC PANEL ([id number]) 2022-06-25 03:35:00 Jaden Siddiqui [facility] CBC WITH DIFF 2022-06-25 03:35[facility]00 [facility] / [facility]R 2022-06-25 03:35:00 Kenna Siddiqui [facility] D-DIMER 2022-06-25 03:35:00 [facility] N-[facility] PRO-BNP 2022-06-25 03:35:00 Jaden Siddiqui [facility] CONSENT/REFUSAL FOR DIAGNOSIS AND TREATMENT 2022-06-25 00:16:13 Doctor Unassigned, [place] [facility] XR CHEST 1 VW 2022-06-24 14:12:00 Jaden Siddiqui [facility] INTRO ANES AGT PERIPH NRV\\T\\PLEXI PC 2022-06-15 00:00:00 [facility] INTRO AIF PERIPH NRV PLEXI PERQ 2022-06-15 00:00:00 [facility] AUTHORIZATION FOR RELEASE OF PHI 2022-06-08 05:01:00 Doctor Unassigned, [place] [facility] XR CHEST 1 VW 2022-06-01 02:07:14 [facility] XR KNEE <3 VW RIGHT 2022-06-01 02:07:14 Gabriel Garcia [facility] XR SHOULDER 2+ VW RIGHT 2022-06-01 02:07:14 Lela Garcia [facility] CT CERVICAL SPINE WO CONTRAST 2022-06-01 02:05:05 Gabriel Garcia [facility] CT HEAD WO CONTRAST 2022-06-01 02:05:05 Gabriel Garcia [facility] CONSENT/REFUSAL FOR DIAGNOSIS AND TREATMENT 2022-06-01 01:15:31 Doctor Unassigned, [place] [facility] INTRO ANES AGT PERIPH NRV\\T\\PLEXI PC 2022-05-11 00:00:00 [facility] INTRO AIF PERIPH NRV PLEXI PERQ 2022-05-11 00:00:00 [facility] INTRO ANES AGT PERIPH NRV\\T\\PLEXI PC 2022-04-06 00:00:00 [facility] INTRO AIF PERIPH NRV PLEXI PERQ 2022-04-06 00:00:00 [facility] ASSIGNMENT OF BENEFITS 2022-03-14 20:14:00 Docto r Unassigned, [place] [facility] CT THORAX WO CONTRAST 2022-02-26 13:20:05 Anaya Kline [facility] BASIC METABOLIC PANEL (NA, K, CL, CO2, GLUCOSE, BUN, CREATININE, CA) 2022-02-26 09:29:00 Anaya Kline [facility] CBC WITH DIFF 2022-02-26 09:29:00 Anaya Kline [facility] EKG-12 LEAD 2022-02-26 06:20:06 [facility] 2022-02-26 03:28:00 Jimy Cameron [facility] TROPONIN I 2022-02-26 03:28:00 Jimy Cameron [facility] COMP. METABOLIC PANEL ([id number]) 2022-02-26 03:28:00 Jimy Cameron [facility] CBC WITH DIFF 2022-02-26 03:28:00 Jimy Cameron [facility] N-TERMINAL PRO-BNP 2022-02-26 03:28:00 Angelia Cameron [facility] XR CHEST 1 VW 2022-02-26 01:52:00 Jimy Cameron [facility] COVID-19 (ID NOW RAPID TESTING) 2022-02-26 01:03:00 Jimy Cameron [facility] CT HEAD WO CONTRAST 2022-02-25 23:59:38 Jose Enrique Cameron [facility] CONSENT/REFUSAL FOR DIAGNOSIS AND TREATMENT 2022-02-25 22:55:28 Doctor Unassigned, [place] [facility] EKG-12 LEAD 2022-02-23 06:15:35 Bro Ann [facility] TROPONIN I 2022-02-23 05:20:00 Bro Ann [facility] XR CHEST 2 VW 2022-02-23 03:47:00 Bro Ann [facility] URINALYSIS 2022-02-23 03:26:00 Bro Ann [facility] TROPONIN I 2022-02-23 03:12:00 Bro Ann [facility] COMP. METABOLIC PANEL (09301) 2022-02-23 03:12:00 Bro Ann [facility] CBC WITH DIFF 2022-02-23 03:12:00 Bro Ann [facility] RAPID INFLUENZA A/B 2022-02-23 03:12:00 Linda Ann [facility] N-TERMINAL PRO-BNP 2022-02-23 03:12:00 Sue Ann [facility] COVID-19 (ID NOW RAPID TESTING) 2022-02-23 03:12:00 Bro Ann [facility] CONSENT/REFUSAL FOR DIAGNOSIS AND TREATMENT 2022-02-23 02:38:26 Doctor Unassigned, [place] [facility] XR LUMBAR SPINE 2 VW 2022-01-29 20:25:58 Rudy Siddiqui [facility] CONSENT/REFUSAL FOR DIAGNOSIS AND TREATMENT 2022-01-29 18:42:46 Doctor Unassigned, [place] [facility] XR CHEST 1 VW 2022-01-29 13:43:00 Mai Del Rosario U [facility] TROPONIN I 2022-01-29 13:34:00 [facility] COMP. METABOLIC PANEL ([id number]) 2022-01-29 13:34:00 Mai Del Rosario [facility] CBC WITH DIFF 2022-01-29 13:34:00 Mai Del Rosario [facility] N-TERMINAL PRO-BNP 2022-01-29 13:34:00 Ricky Del Rosario [facility] AC PANEL 21 + LACTIC ACID 2022-01-29 13:34:00 Mai Del Rosario [facility] CONSENT/REFUSAL FOR DIAGNOSIS AND TREATMENT 2022-01-29 12:47:51 Doctor Unassigned, [place] [facility] INTRO ANES AGT PERIPH NRV\\T\\PLEXI PC 2022-01-05 00:00:00 [facility] INTRO AIF PERIPH NRV PLEXI PERQ 2022-01-05 00:00:00 [facility] XR CHEST 1 VW 2022-01-03 04:29:34 Jacklyn Guillen [facility] CONSENT/REFUSAL FOR DIAGNOSIS AND TREATMENT 2022-01-03 02:30:38 Doctor Unassigned, [place] [facility] MAGNESIUM 2021-12-07 09:01:00 David Lazo [facility] COMP. METABOLIC PANEL ([id number]) 2021-12-07 09:01:00 Gely Hernandez [facility] CBC WITH DIFF 2021-12-07 09:01:00 David Lazo [facility] N-TERMINAL PRO-BNP 2021-12-07 09:01:00 Gely Hernandez [facility] URINALYSIS 2021-12-06 16:46:00 Gely Hernandez [facility] URINE CULTURE 2021-12-06 16:46:00 Gely Hernandez [facility] PHOSPHORUS 2021-12-06 10:11:00 Gely Hernandez [facility] MAGNESIUM 2021-12-06 10:11:00 Gely Hernandez [facility] VITAMIN B12, LEVEL 2021-12-06 10:11:00 Gely Hernandez [facility] C-REACTIVE PROTEIN 2021-12-06 10:11:00 Gely Hernandez [facility] TROPONIN I 2021-12-06 10:11:00 Gely Hernandez [facility] FREE T4 2021-12-06 10:11:00 Gely Hernandez [facility] COMP. METABOLIC PANEL ([id number]) 2021-12-06 10:11:00 Gely Hernandez [facility] SEDIMENTATION RATE 2021-12-06 10:11:00 Gely Hernandez [facility] CBC WITH DIFF 2021-12-06 10:11:00 Gely Henrandez [facility] N-TERMINAL PRO-BNP 2021-12-06 10:11:00 Gely Hernandez [facility] VITAMIN D, 25-OH 2021-12-06 10:11:00 [facility] 2021-12-06 10:11:00 Gely Hernandez [facility] PROCALCITONIN 2021-12-06 10:11:00 Gely Hernandez [facility] AC VBG + LACTIC ACID 2021-12-06 10:10:00 Hyacinth Hernandez [facility] COVID-19 (ID NOW RAPID TESTING) 2021-12-06 00:09:00 Oren Tovar [facility] LAB ONLY COVID INTERPRETATION 2021-12-06 00:09:00 Oren Tovar [facility] URIC ACID 2021-12-06 00:07:00 Gely Hernandez [facility] FERRITIN SERUM 2021-12-06 00:07:00 Gely Hernandez [facility] TROPONIN I 2021-12-06 00:07:00 Oren Tovar [facility] THYROID STIMULATING HORMONE 2021-12-06 00:07:00 Gely Hernandez [facility] COMP. METABOLIC PANEL ([id number]) 2021-12-06 00:07:00 Oren Tovar [facility] LIPID PANEL (22113)(TOTAL CHOLESTEROL, TRIGLYCERIDES, HDL) 2021-12-06 00:07:00 Gely Hernandez [facility] IRON PANEL 2021-12-06 00:07:00 Gely Hernandez [facility] DIFF CONSULT INTERPRETATION 2021-12-06 00:07:00 Gely Hernandez [facility] CBC WITH DIFF 2021-12-06 00:07:00 Oren Tovar [facility] GLYCOSYLATED HEMOGLOBIN (A1C) 2021-12-06 00:07:00 Gely Hernandez [facility] PROTHROMBIN TIME / INR 2021-12-06 00:07:00 Sathya Tovar [facility] ACTIVATED PARTIAL THRMPLAS ANTONINO 2021-12-06 00:07:00 Oren Tovar [facility] N-TERMINAL PRO-BNP 2021-12-06 00:07:00 Oren Tovar [facility] HB ECG ROUTINE & RHYTHM STRIP 2021-12-06 00:05:16 Oren Tovar [facility] XR CHEST 1 VW 2021-12-05 23:50:38 Oren Tovar [facility] ASSIGNMENT OF BENEFITS 2021-12-05 23:47:08 Docto r Unassigned, [place] [facility] NOTICE OF PRIVACY PRACTICES 2021-12-05 22:03:59 Doctor Unassigned, [place] [facility] CONSENT/REFUSAL FOR DIAGNOSIS AND TREATMENT 2021-12-05 22:03:42 Doctor Unassigned, [place] [facility] CT ANGIOGRAM CHEST 2021-12-04 20:47:15 Rivas [facility] LACTIC ACID WHOLE BLOOD 2021-12-04 15:19:00 Rivas [facility] BLOOD CULTURE SCREEN 2021-12-04 10:21:00 Ayesha You [facility] LACTIC ACID WHOLE BLOOD 2021-12-04 09:08:00 Deloris You [facility] BASIC METABOLIC PANEL (NA, K, CL, CO2, GLUCOSE, BUN, CREATININE, CA) 2021-12-04 09:07:00 Wilfrid Pearson [facility] CBC WITH DIFF 2021-12-04 09:07:00 [facility] 2021-12-03 21:29:00 [facility] ABG + LACTIC ACID 2021-12-03 21:13:00 Lexi Brushe Jonh [facility] AMYLASE 2021-12-03 21:12:00 [facility] LIP[facility] 2021-12-03 21:12:00 Maury Brush [facility] TROPONIN I 2021-12-03 21:12:00 Maury Brush Un [facility] COMP. METABOLIC PANEL ([id number]) 2021-12-03 21:12:00 Maury Brush [facility] CBC WITH DIFF 2021-12-03 21:12:00 Maury Brush U [facility] N-TERMINAL PRO-BNP 2021-12-03 21:12:00 Sonia Brush [facility] PROCALCITONIN 2021-12-03 21:12:00 Abu Atherah, Emran U [facility] XR CHEST 1 VW 2021-12-03 20:52:01 Maury Brush U [facility] URINALYSIS 2021-12-03 20:34:00 Maury Brush Un [facility] COVID-19 (ID NOW RAPID TESTING) 2021-12-03 20:34:00 Maury Brush [facility] AUTHORIZATION FOR RELEASE OF PHI 2021-11-23 05:01:00 Doctor Unassigned, [place] [facility] EKG-12 LEAD 2021-11-11 05:25:58 Jimy Cameron Un [facility] BASIC METABOLIC PANEL (NA, K, CL, CO2, GLUCOSE, BUN, CREATININE, CA) 2021-11-10 09:16:00 Wilfrid Pearson [facility] CBC WITH DIFF 2021-11-10 09:16:00 Wilfrid Pearson [facility] LACTIC ACID WHOLE BLOOD 2021-11-10 09:16:00 Jimy Cameron [facility] CT CHEST PULMONARY ANGIOGRAM 2021-11-10 04:49:21 Jimy Cameron [facility] BLOOD CULTURE SCREEN 2021-11-10 03:58:00 [facility] BLOOD CULTURE WORKUP 2021-11-10 03:58:00 [facility] BLOOD CULTURE SCREEN 2021-11-10 02:56:[address] [facility] PROTHROMBIN TIME / INR 2021-11-10 01:47:00 Jonathon Cameron [facility] D-DIMER 2021-11-10 01:47:00 Jimy Cameron [facility] ACTIVATED PARTIAL THRMPLAS ANTONINO 2021-11-10 01:47:00 Jimy Cameron [facility] COVID-19 (ID NOW RAPID TESTING) 2021-11-10 01:47:00 Jiym Cameron [facility] LAB ONLY COVID INTERPRETATION 2021-11-10 01:47:00 Jimy Cameron [facility] AC ABG + LACTIC ACID 2021-11-10 01:45:00 Stevan Cameron [facility] XR CHEST 1 VW 2021-11-10 01:38:00 Jimy Cameron [facility] COMP. METABOLIC PANEL ([id number]) 2021-11-10 01:32:00 Jimy Cameron [facility] CBC WITH DIFF 2021-11-10 01:32:00 Jimy Cameron [facility] CONSENT/REFUSAL FOR DIAGNOSIS AND TREATMENT 2021-11-10 00:42:41 Doctor Unassigned, [place] [facility] AUTHORIZATION FOR RELEASE OF PHI 2021-11-07 06:01:00 Doctor Unassigned, [place] [facility] EXTERNAL PROVIDER - WOMEN'S SERVICES RADIOLOGY 2021-11-03 06:01:00 Doctor Unassigned, [place] [facility] XR CHEST 1 2021-10-24 18:45:48 [facility] 2021-10-24 18:45:48 Abu Sher, Anaya U [facility] BASIC METABOLIC PANEL (NA, K, CL, CO2, GLUCOSE, BUN, CREATININE, CA) 2021-10-24 12:36:00 Renato [facility] CBC WITHOUT DIFF 2021-10-24 12:36:[address] [facility] BASIC METABOLIC PANEL (NA, K, CL, CO2, GLUCOSE, BUN, CREATININE, CA) 2021-10-24 12:36:00 Renato [facility] CBC WITHOUT DIFF 2021-10-24 12:36:00 Benjamin Gross [facility] XR CHEST 1 2021-10-22 15:58:26 Abu Sher Caseamina U niversity [facility] XR CHEST 1 2021-10-22 15:58:26 Abu [facility] 2021-10-22 10:47:00 Zelda Olsen [facility] BASIC METABOLIC PANEL (NA, K, CL, CO2, GLUCOSE, BUN, CREATININE, CA) 2021-10-22 10:47:00 Zelda Olsen [facility] CBC WITH DIFF 2021-10-22 10:47:00 Zelda Olsen [facility] MAGNESIUM 2021-10-22 10:47:00 Zelda Olsen [facility] BASIC METABOLIC PANEL (NA, K, CL, CO2, GLUCOSE, BUN, CREATININE, CA) 2021-10-22 10:47:00 Zelda Olsen [facility] CBC WITH DIFF 2021-10-22 10:47:00 Zelda Olsen [facility] XR CHEST 1 2021-10-21 22:10:00 AbAnaya Dover U [facility] XR CHEST 1 VW 2021-10-21 22:10:00 ki MaliAnaya saucedo [facility] AC PANEL 20 + LACTIC ACID 2021-10-21 20:28:00 Abu Jailene annelise [facility] AC PANEL 20 + LACTIC ACID 2021-10-21 20:28:00 [facility] CYTO BAL 2021-10-21 18:49:00 u Anaya Sharma Un [facility] BODY FLUID DIRECT COUNT 2021-10-21 18:47:00 Abu Athera h, [facility] BODY FLUID DIRECT COUNT 2021-10-21 18:47:00 Abu Athera h, [facility] [employer] CULTURE 2021-10-21 18:46:00 u MaliAnaya saucedo [facility] FUNGUS (ROUTINE) CULTURE 2021-10-21 18:46:00 Abu [facility], [facility] MYCOBACTERIUM TUBERCULOSIS COMPLEX PCR 2021-10-21 18:46:00 u [facility], [facility] RESPIRATORY PANEL BY PCR 2021-10-21 18:46:00 Abu [facility], [facility] [employer] CULTURE 2021-10-21 18:46:00 u MaliAnaya saucedo [facility] FUNGUS (ROUTINE) CULTURE 2021-10-21 18:46:00 Abu [facility], [facility] MYCOBACTERIUM TUBERCULOSIS COMPLEX PCR 2021-10-21 18:46:00 [facility] RESPIRATORY PANEL BY PCR 2021-10-21 18:46:00 Abu Ather , [facility] BASIC METABOLIC PANEL (NA, K, CL, CO2, GLUCOSE, BUN, CREATININE, CA) 2021-10-21 18:44:00 u Mali [facility] BASIC METABOLIC PANEL (NA, K, CL, CO2, GLUCOSE, BUN, CREATININE, CA) 2021-10-21 18:44:00 Abu [facility] CBC WITH DIFF 2021-10-21 18:41:00 Michael Sharma Anaya U [facility] PROTHROMBIN TIME / INR 2021-10-21 18:41:00 Anaya Kline [facility] FIBRINOGEN 2021-10-21 18:41:00 Michael Sharma Anaya Un [facility] CBC WITH DIFF 2021-10-21 18:41:00 Anaya Kline Ki [facility] PROTHROMBIN TIME / INR 2021-10-21 18:41:00 Abu Anaya Sharma [facility] FIBRINOGEN 2021-10-21 18:41:00 Michael Sharma Anaya Cuenca [facility] ANTI-NUCLEAR ANTIBODY SCREEN 2021-10-21 18:41:00 Anaya Kline [facility] FL TIME OR (NON-REPORTABLE) 2021-10-21 18:18:06 Anaya Kline [facility] FL TIME OR (NON-REPORTABLE) 2021-10-21 18:18:06 Anaya Kline [facility] FLEXIBLE BRONCHOSCOPY 2021-10-21 16:21:00 Anaya Kline [facility] FLEXIBLE BRONCHOSCOPY 2021-10-21 16:21:00 Anaya Kline [facility] XR CHEST 1 VW 2021-10-20 11:13:00 Anaya Kline [facility] XR CHEST 1 VW 2021-10-20 11:13:00 Anaya Kline [facility] CBC WITH DIFF 2021-10-20 10:30:00 Maggie Morgan [facility] CBC WITH DIFF 2021-10-20 10:30:00 Maggie Morgan [facility] URIC ACID 2021-10-20 10:29:00 Anaya Kline [facility] BASIC METABOLIC PANEL (NA, K, CL, CO2, GLUCOSE, BUN, CREATININE, CA) 2021-10-20 10:29:00 Maggie Morgan [facility] URIC ACID 2021-10-20 10:29:00 [facility]IC MET[facility]OLIC PANEL (NA, K, CL, CO2, GLUCOSE, BUN, CREATININE, CA) 2021-10-20 10:29:00 Maggie Morgan [facility] XR CHEST 1 VW 2021-10-19 18:11:14 Anaya Kline U [facility] XR CHEST 1 VW 2021-10-19 18:11:14 Michael Sharma Anaya U [facility] CBC WITH DIFF 2021-10-19 09:05:00 Maggie Morgan [facility] CBC WITH DIFF 2021-10-19 09:05:00 Maggie Morgan [facility] MAGNESIUM 2021-10-19 09:04:00 Raúl [facility] BASIC METABOLIC PANEL (NA, K, CL, CO2, GLUCOSE, BUN, CREATININE, CA) 2021-10-19 09:04:00 Maggie Morgan [facility] MAGNESIUM 2021-10-19 09:04:00 Raúl [facility] BASIC METABOLIC PANEL (NA, K, CL, CO2, GLUCOSE, BUN, CREATININE, CA) 2021-10-19 09:04:00 Maggie Morgan [facility] POCT GLUCOSE (AUTOMATED) 2021-10-19 02:24:00 Yamini Talavera [facility] POCT GLUCOSE (AUTOMATED) 2021-10-19 02:24:00 Yamini Talavera [facility] COVID-19 (MOLECULAR TESTING NUCLEIC ACID AMPLIFICATION) 2021-10-18 19:48:[address] [facility] LAB ONLY COVID INTERPRETATION 2021-10-18 19:48:[address] [facility] COVID-19 (MOLECULAR TESTING NUCLEIC ACID AMPLIFICATION) 2021-10-18 19:48:[address] [facility] LAB ONLY COVID INTERPRETATION 2021-10-18 19:48:[address] [facility] ANGIOTENSIN CONVERTING ENZYME 2021-10-18 19:45:00 Vale Jones [facility] RHEUMATOID FACTOR 2021-10-18 19:45:00 Amadou Putnam [facility] ANCA SCREEN 2021-10-18 19:45:00 Vale Jones [facility] ANGIOTENSIN CONVERTING ENZYME 2021-10-18 19:45:00 [facility] RHEUMATOID FACTOR 2021-10-18 19:45:00 Amadou Putnam [facility] ANCA SCREEN 2021-10-18 19:45:00 Vale Jones Un [facility] XR CHEST 1 VW 2021-10-18 12:37:00 Abu MalilewisAnaya U [facility] XR CHEST 1 VW 2021-10-18 12:37:00 Abu Anaya Sharma U [facility] PHOSPHORUS 2021-10-18 09:30:00 Raúl [facility] MAGNESIUM 2021-10-18 09:30:00 [facility] BASIC METABOLIC PANEL (NA, K, CL, CO2, GLUCOSE, BUN, CREATININE, CA) 2021-10-18 09:30:00 Raúl [facility] CBC WITH DIFF 2021-10-18 09:30:[address] [facility] GLYCOSYLATED HEMOGLOBIN (A1C) 2021-10-18 09:30:00 Maggie Morgan [facility] PHOSPHORUS 2021-10-18 09:30:00 Raúl [facility] MAGNESIUM 2021-10-18 09:30:00 Raúl [facility] BASIC METABOLIC PANEL (NA, K, CL, CO2, GLUCOSE, BUN, CREATININE, CA) 2021-10-18 09:30:00 Raúl [facility] CBC WITH DIFF 2021-10-18 09:30:[address] [facility] GLYCOSYLATED HEMOGLOBIN (A1C) 2021-10-18 09:30:00 Maggie Morgan [facility] BASIC METABOLIC PANEL (NA, K, CL, CO2, GLUCOSE, BUN, CREATININE, CA) 2021-10-18 00:43:00 Michael Malilewis [facility] BASIC METABOLIC PANEL (NA, K, CL, CO2, GLUCOSE, BUN, CREATININE, CA) 2021-10-18 00:43:00 Michael Malilewis [facility] N-TERMINAL PRO-BNP 2021-10-17 21:27:00 Samir Galindo [facility] N-TERMINAL PRO-BNP 2021-10-17 21:27:00 Samir Galindo [facility] TRANSTHORACIC ECHO (TTE) COMPLETE 2021-10-17 17:05:00 Bk [facility] TRANSTHORACIC ECHO (TTE) COMPLETE 2021-10-17 17:05:00 Bk [facility] XR CHEST 1 2021-10-17 17:00:50 Samir Galindo [facility] XR CHEST 1 2021-10-17 17:00:50 Samir Galindo [facility] XR CHEST 1 2021-10-17 14:17:12 Samir Galindo [facility] XR CHEST 1 2021-10-17 14:17:12 Samir Galindo [facility] ABG+COOX+NA+K+GLU+CA2+ 2021-10-17 13:25:00 Rey Parada [facility] ABG+COOX+NA+K+GLU+CA2+ 2021-10-17 13:25:00 Rey Parada [facility] PHOSPHORUS 2021-10-17 10:28:00 Samir Galindo [facility] MAGNESIUM 2021-10-17 10:28:00 Samir Galindo [facility] BASIC METABOLIC PANEL (NA, K, CL, CO2, GLUCOSE, BUN, CREATININE, CA) 2021-10-17 10:28:00 Samir Galindo [facility] SEDIMENTATION RATE 2021-10-17 10:28:00 Faraz Parada [facility] CBC WITH DIFF 2021-10-17 10:28:00 Samir Galindo [facility] ANTI-NUCLEAR ANTIBODY SCREEN 2021-10-17 10:28:00 Faraz Parada [facility] ANTI-NUCLEAR ANTIBODY TITER 2021-10-17 10:28:00 ParadaFaraz [facility] ANTI-DOUBLE STRANDED DNA 2021-10-17 10:28:00 Amadou Putnam [facility] HIV 1/2 AG-AB WITH REFLEX 2021-10-17 10:28:00 Abu Anaya Welch [facility] ANTI-NUCLEAR ANTIBODY-PATHOLOGIST INTERPRETATION 2021-10-17 10:28:00 Faraz Parada [facility] PHOSPHORUS 2021-10-17 10:28:00 Samir Galindo [facility] MAGNESIUM 2021-10-17 10:28:00 Josie [facility] BASIC METABOLIC PANEL (NA, K, CL, CO2, GLUCOSE, BUN, CREATININE, CA) 2021-10-17 10:28:00 Josie [facility] SEDIMENTATION RATE 2021-10-17 10:28:00 Faraz Parada [facility] CBC WITH DIFF 2021-10-17 10:28:[facility]TI[facility]CLEAR ANTIBODY SCREEN 2021-10-17 10:28:00 Faraz Parada [facility] ANTI-NUCLEAR ANTIBODY TITER 2021-10-17 10:28:00 Faraz Parada [facility] ANTI-DOUBLE STRANDED DNA 2021-10-17 10:28:00 Amadou Putnam [facility] HIV 1/2 AG-AB WITH REFLEX 2021-10-17 10:28:00 AbAnaya Fonseca [facility] ANTI-NUCLEAR ANTIBODY-PATHOLOGIST INTERPRETATION 2021-10-17 10:28:00 Faraz Parada [facility] BLOOD CULTURE SCREEN 2021-10-16 17:40:00 Yojana Putnam si [facility] BLOOD CULTURE SCREEN 2021-10-16 17:40:00 Yojana Putnam si [facility] XR CHEST 1 VW 2021-10-16 16:56:36 Nicol Bourgeois U [facility] XR CHEST 1 VW 2021-10-16 16:56:36 Nicol Bourgeois U [facility] RESPIRATORY PANEL BY PCR 2021-10-16 14:46:00 Amadou Putnam [facility] RESPIRATORY PANEL BY PCR 2021-10-16 14:46:00 Amadou Putnam [facility] PHOSPHORUS 2021-10-16 10:47:00 Samir Galindo [facility] MAGNESIUM 2021-10-16 10:47:00 Josie [facility] BASIC METABOLIC PANEL (NA, K, CL, CO2, GLUCOSE, BUN, CREATININE, CA) 2021-10-16 10:47:00 Josie [facility] CBC WITH DIFF 2021-10-16 10:47:00 Josie [facility] AC PANEL 20 + LACTIC ACID 2021-10-16 10:47:00 [facility] 2021-10-16 10:47:00 [facility] 2021-10-16 10:47:00 Josie [facility] BASIC METABOLIC PANEL (NA, K, CL, CO2, GLUCOSE, BUN, CREATININE, CA) 2021-10-16 10:47:00 Josie [facility] CBC WITH DIFF 2021-10-16 10:47:00 oJsie [facility] AC PANEL 20 + LACTIC ACID 2021-10-16 10:47:00 Maryan Galindo [facility] C-REACTIVE PROTEIN 2021-10-15 22:38:00 [facility] 2021-10-15 22:38:00 [facility] BASIC METABOLIC PANEL (NA, K, CL, CO2, GLUCOSE, BUN, CREATININE, CA) 2021-10-15 22:38:00 Josie [facility] C-REACTIVE PROTEIN 2021-10-15 22:38:00 Faraz Parada [facility] TROPONIN I 2021-10-15 22:38:00 Blanca Talavera [facility] BASIC METABOLIC PANEL (NA, K, CL, CO2, GLUCOSE, BUN, CREATININE, CA) 2021-10-15 22:38:00 Samir Galindo [facility] PNEUMOCOCCAL ANTIGEN 2021-10-15 21:49:00 [facility] PNEUM[facility]TIGEN 2021-10-15 21:49:00 Jsoie [facility] LEGIONELLA URINARY ANTIGEN TST 2021-10-15 21:48:00 Josie [facility] LEGIONELLA URINARY ANTIGEN TST 2021-10-15 21:48:00 Josie [facility] CT ANGIOGRAM CHEST 2021-10-15 19:22:00 Vi Kline [facility] CT ANGIOGRAM CHEST 2021-10-15 19:22:00 Vi Kline [facility] TROPONIN I 2021-10-15 17:29:00 Blanca Talavera [facility] RAPID INFLUENZA A/B 2021-10-15 17:29:00 Vito Bourgeois [facility] [place] N-TERMINAL PRO-BNP 2021-10-15 17:29:00 Jose Bourgeois [facility] PROCALCITONIN 2021-10-15 17:29:00 Nicol Bourgeois U [facility] COVID-19 (MOLECULAR TESTING NUCLEIC ACID AMPLIFICATION) 2021-10-15 17:29:00 Nicol Bourgeois [facility] [place] LAB ONLY COVID INTERPRETATION 2021-10-15 17:29:00 Nicol Bourgeois [facility] TROPONIN I 2021-10-15 17:29:00 Blanca Talavera [facility] RAPID INFLUENZA A/B 2021-10-15 17:29:00 Vito Bourgeois [facility] N-TERMINAL PRO-BNP 2021-10-15 17:29:00 Jose Bourgeois [facility] PROCALCITONIN 2021-10-15 17:29:00 Nicol Bourgeois [facility] COVID-19 (MOLECULAR TESTING NUCLEIC ACID AMPLIFICATION) 2021-10-15 17:29:00 Nicol Bourgeois [facility] [place] LAB ONLY COVID INTERPRETATION 2021-10-15 17:29[facility]00 [facility] (ID NOW RAPID TESTING) 2021-10-15 13:03:00 [facility]TATION 2021-10-15 13:03:00 [facility] COVID-19 (ID NOW RAPID TESTING) 2021-10-15 13:03:00 [facility] LAB ONLY COVID INTERPRETATION 2021-10-15 13:03:00 [facility] XR CHEST 1 VW 2021-10-15 09:46:38 Blanca Talavera [facility] XR CHEST 1 VW 2021-10-15 09:46:38 Blanca Talavera [facility] MAGNESIUM 2021-10-15 08:16:00 Samir Galindo [facility] BASIC METABOLIC PANEL (NA, K, CL, CO2, GLUCOSE, BUN, CREATININE, CA) 2021-10-15 08:16:00 [facility] PROCALCITONIN 2021-10-15 08:16:00 Blanca Talavera [facility] MAGNESIUM 2021-10-15 08:16:00 Samir Galindo [facility] BASIC METABOLIC PANEL (NA, K, CL, CO2, GLUCOSE, BUN, CREATININE, CA) 2021-10-15 08:16:00 [facility] PROCALCITONIN 2021-10-15 08:16:00 Blanca Talavera [facility] ABG+COOX+NA+K+GLU+CA2+ 2021-10-15 07:24:00 [facility]G+COOX+NA+K+GLU+CA2+ 2021-10-15 07:24:00 Chris Galindo az [facility] [place] TROPONIN I 2021-10-15 07:10:00 Blanca Talavera [facility] CBC WITH DIFF 2021-10-15 07:10:00 Samir Galindo [facility] TROPONIN I 2021-10-15 07:10:00 Blanca Talavera [facility] CBC WITH DIFF 2021-10-15 07:10:00 Samir Galindo [facility] MRSA / MSSA SCREEN BY PCRLUKAS 2021-10-15 07:09:00 Samir Galindo [facility] MRSA / MSSA SCREEN BY PCR, LUKAS 2021-10-15 07:09:00 Samir Galindo [facility] [place] AUTHORIZATION FOR RELEASE OF PHI 2021-06-09 05:01:00 Doctor Unassigned, [place] [facility] [place] Plan of Care Planned Activity Planned Date Details Comments Source Goal Plan of Care Note [code = 80791-3] Goal Plan of Care Note [code = 73427-2] Goal Plan of Care Note [code = 13183-5] Goal Plan of Care Note [code = 10719-9] Goal Plan of Care Note [code = 17182-4] Goal Plan of Care Note [code = 94078-8] Goal Plan of Care Note [code = 71442-9] Goal Plan of Care Note [code = 99711-2] Goal Plan of Care Note [code = 10378-7] Goal Plan of Care Note [code = 69883-1] Goal Plan of Care Note [code = 43711-3] Goal Plan of Care Note [code = 02180-7] Goal Plan of Care Note [code = 05168-7] Goal Plan of Care Note [code = 93400-7] Goal Plan of Care Note [code = 62072-1] Goal Plan of Care Note [code = 89245-5] Goal Plan of Care Note [code = 37239-0] Goal Plan of Care Note [code = 88558-5] Goal Plan of Care Note [code = 57628-8] Goal Plan of Care Note [code = 48581-4] Goal Plan of Care Note [code = 96083-2] Goal Plan of Care Note [code = 06009-7] Goal Plan of Care Note [code = 87379-2] Goal Plan of Care Note [code = 34775-0] Goal Plan of Care Note [code = 09965-2] Goal Plan of Care Note [code = 12942-7] Goal Plan of Care Note [code = 60071-5] Goal Plan of Care Note [code = 48177-7] Goal Plan of Care Note [code = 71410-2] Goal Plan of Care Note [code = 38411-5] Goal Plan of Care Note [code = 63299-6] Goal Plan of Care Note [code = 74497-4] Goal Plan of Care Note [code = 80136-8] Goal Plan of Care Note [code = 65499-4] Goal Plan of Care Note [code = 73912-9] Goal Plan of Care Note [code = 16644-8] Goal Plan of Care Note [code = 59750-4] Goal Plan of Care Note [code = 57432-9] Goal Plan of Care Note [code = 58226-5] Goal Plan of Care Note [code = 40828-2] Goal Plan of Care Note [code = 83755-6] Goal Plan of Care Note [code = 66622-6] Goal Plan of Care Note [code = 05562-4] Goal Plan of Care Note [code = 41123-2] Goal Plan of Care Note [code = 44649-9] Goal Plan of Care Note [code = 55523-7] Goal Plan of Care Note [code = 52248-3] Goal Plan of Care Note [code = 68240-0] Goal Plan of Care Note [code = 18559-0] Goal Plan of Care Note [code = 04543-6] Goal Plan of Care Note [code = 99609-8] Goal Plan of Care Note [code = 20561-0] Goal Plan of Care Note [code = 72480-6] Goal Plan of Care Note [code = 18146-7] Goal Plan of Care Note [code = 64623-9] Goal Plan of Care Note [code = 86706-9] Goal Plan of Care Note [code = 02844-7] Goal Plan of Care Note [code = 38571-0] Goal Plan of Care Note [code = 06079-6] Goal Plan of Care Note [code = 72400-0] Goal Plan of Care Note [code = 95427-5] Goal Plan of Care Note [code = 07260-2] Goal Plan of Care Note [code = 51376-1] Goal Plan of Care Note [code = 69457-6] Goal Plan of Care Note [code = 82196-2] Goal Plan of Care Note [code = 18823-1] Goal Plan of Care Note [code = 41063-4] Goal Plan of Care Note [code = 27837-3] Goal Plan of Care Note [code = 65657-3] Goal Plan of Care Note [code = 05249-9] Goal Plan of Care Note [code = 24426-8] Goal Plan of Care Note [code = 55492-6] Goal Plan of Care Note [code = 88216-2] Goal Plan of Care Note [code = 78239-1] Goal Plan of Care Note [code = 76474-5] Goal Plan of Care Note [code = 48729-5] Goal Plan of Care Note [code = 49492-7] Goal Plan of Care Note [code = 42635-1] Goal Plan of Care Note [code = 17547-0] Goal Plan of Care Note [code = 45700-6] Goal Plan of Care Note [code = 67148-8] Goal Plan of Care Note [code = 07211-9] Goal Plan of Care Note [code = 17644-7] Goal Plan of Care Note [code = 61455-6] Goal Plan of Care Note [code = 40136-9] Goal Plan of Care Note [code = 85556-2] Goal Plan of Care Note [code = 60411-7] Goal Plan of Care Note [code = 04643-5] Goal Plan of Care Note [code = 13300-6] Goal Plan of Care Note [code = 39867-1] Goal Plan of Care Note [code = 76758-2] Goal Plan of Care Note [code = 27146-6] Goal Plan of Care Note [code = 32508-2] Goal Plan of Care Note [code = 56838-8] Encounters Start Date/Time End Date/Time Encounter Type Admission Type Attending Clinicians Care Facility Care Department Encounter ID Source 2024-06-30 15:05:17 2024-06-30 15:05:17 Outpatient SFA [facility] 1028 Dwayne Myers 2024-06-27 14:15:46 2024-06-27 14:15:[address] [facility] 1025 Dwayne Myers 2024-06-26 15:49:57 2024-06-26 15:49:[address] [facility] 1024 Dwayne Myers 2024-06-26 00:00:00 2024-06-26 00:00:00 Outpatient Visit S[facility] [id number] Dwayne Myers 2024-06-19 06:47:00 2024-06-19 10:00:00 Outpatient LINDSEY PADILLA [facility] [id number] [facility] 2024-06-19 06:47:00 2024-06-19 06:47:00 Outpatient LINDSEY PADILLA [facility] [id number] [facility] 2024-06-05 06:45:00 2024-06-05 09:25:00 Outpatient LINDSEY PADILLA [facility] [id number] [facility] 2024-06-05 06:45:00 2024-06-05 09:25:00 Outpatient LINDSEY PADILLA [facility] [id number] [facility] 2024-05-13 17:15:56 2024-05-13 17:15:[address] [facility] [id number] Dwayne Myers 2024-05-13 00:00:00 2024-05-13 00:00:00 Outpatient Visit SFA [id number] Dwayne Myers 2024-04-16 11:29:46 2024-04-16 11:29:[address] [facility] [id number] Dwayne Myers 2024-04-16 00:00:00 2024-04-16 00:00:00 Outpatient Visit SFA [id number] Dwayne Myers 2024-04-15 11:08:26 2024-04-15 11:08:[address] [facility] 13 Dwayne Myers 2024-04-15 00:00:00 2024-04-15 00:00:00 Outpatient Visit S[facility] [id number] Dwayne Myers 2024-04-10 15:16:22 2024-04-10 15:16:[address] [facility] 807 Dwayne Myers 2024-04-08 11:32:44 2024-04-08 11:32:[address] [facility] [id number] Dwayne Myers 2024-04-08 00:00:00 2024-04-08 00:00:[address] [facility] [id number] Dwayne Myers 2024-04-01 10:49:16 2024-04-01 10:49:[address] [facility] 729 Dwayne Myers 2024-03-31 16:14:36 2024-03-31 16:14:[address] [facility] 728 Dwayne Bah [place] 2024-03-31 00:00:00 2024-03-31 00:00:[address] [facility] [id number] Dwayne Myers 2024-03-22 17:10:00 2024-03-22 20:43:00 Emergency X JIMY CAMERON [facility] [id number] [facility] 2024-03-22 17:10:00 2024-03-22 20:43:00 Emergency Jimy Cameron [facility] ([facility]) 1.2.840.114 350.1.13.10 4.2.7.2.686 [id number] [facility] 2024-03-22 06:36:00 2024-03-22 09:36:00 Emergency X MIGEL MK HILL [facility] ERT [id number] [facility] 2024-03-22 06:36:00 2024-03-22 09:36:00 Emergency Gabriel Garcia Mk Hernandez [facility] 1.2.840.114 350.1.13.10 4.2.7.2.686 [id number] [facility] 2024-01-18 13:20:00 2024-01-18 13:20:00 [facility] [id number] [facility] 2024-01-16 09:00:00 2024-01-16 09:45:34 [facility] [id number] [facility] 2024-01-16 09:00:00 2024-01-16 09:45:34 Office Visit Victor Manuel [facility] 1.2.840.114 350.1.13.10 4.2.7.2.686 [id number] [facility] 2024-01-16 00:00:00 2024-01-16 00:00:00 Telephone Victor Manuel [facility] 1.2.840.114 350.1.13.10 4.2.7.2.686 [id number] [facility] 2024-01-08 09:53:36 2024-01-08 09:53:[address] [facility] [id number] Dwayne Myers 2024-01-07 15:46:41 2024-01-07 15:46:41 Outpatient [facility] [id number] Dwayne Myers 2024-01-03 13:52:03 2024-01-03 13:52:03 Outpatient [facility] [id number] Dwayne Myers 2024-01-03 00:00:00 2024-01-03 00:00:[address] [facility] [id number] Dwayne Myers 2023-12-31 13:25:23 2023-12-31 13:25:23 Outpatient [facility] [id number] Dwayne Myers 2023-12-31 00:00:00 2023-12-31 00:00:[address] [facility] [id number] Dwayne Myers 2023-12-10 15:24:04 2023-12-10 15:24:04 Outpatient [facility] [id number] Dwayne Myers 2023-10-12 19:30:00 2023-10-12 23:58:00 Emergency X [facility] [id number] [facility] 2023-10-12 19:30:00 2023-10-12 23:58:00 Emergency [facility] ([facility]) 1.2.840.114 350.1.13.10 4.2.7.2.686 [id number] [facility] 2023-09-25 08:35:13 2023-09-25 08:35:13 Outpatient [facility] [id number] Dwayne Bah [place] 2023-08-23 14:14:42 2023-08-23 14:14:42 Outpatient [facility] 1221 Dwayne Myers 2023-08-23 00:00:00 2023-08-23 00:00:00 Orders Only Doctor Unassigned, [place] [facility] 1.2.840.114 350.1.13.10 4.2.7.2.686 [id number] [facility] 2023-07-30 11:27:18 2023-07-30 11:27:18 Outpatient [facility] [id number] Dwayne Myers 2023-07-23 13:48:13 2023-07-23 13:48:[address] [facility] [id number] Dwayne Myers 2023-07-10 14:42:08 2023-07-10 14:42:08 Outpatient SFA [facility] 1107 Dwayne Myers 2023-07-04 00:00:00 2023-07-04 00:00:00 Outpatient GC_GCBZW_Ka diyala_S [facility] [id number] [facility] 2023-06-26 11:04:41 2023-06-26 11:04:[address] [facility] 1024 Dwayne Myers 2023-06-12 14:49:18 2023-06-12 14:49:[address] [facility] [id number] Dwayne Myers 2023-06-03 21:46:00 2023-06-03 23:33:00 Emergency E ALIRIO, COLLETTE ALIRIO, [facility] [id number] [facility] 2023-06-03 21:46:00 2023-06-03 23:33:00 Emergency E ALIRIO, COLLETTE ALIRIO, [facility] [id number] [facility] 2023-05-30 10:27:39 2023-05-30 10:27:[address] [facility] [id number] Dwayne Myers 2023-05-04 14:49:00 2023-05-04 16:40:00 Emergency E MANAN WONG, MANAN [facility] [id number] [facility] 2023-05-03 10:11:47 2023-05-03 10:11:47 Outpatient SFA [facility] 0831 Dwayne Myers 2023-04-30 08:40:38 2023-04-30 08:40:38 Outpatient SFA [facility] 0828 Dwayne Myers 2023-04-26 14:46:53 2023-04-26 14:46:53 Outpatient SFA [facility] 0824 Dwayne Myers 2023-04-24 08:12:09 2023-04-24 08:12:09 Outpatient [facility] [id number] Dwayne Myers 2023-04-14 21:33:00 2023-04-15 05:47:00 Emergency E CLYDE LEGGETT [facility] [id number] [facility] 2023-03-19 10:19:29 2023-03-19 10:19:29 Outpatient [facility] [id number] Dwayne Myers 2023-02-19 09:15:24 2023-02-19 09:15:24 Outpatient [facility] [id number] Dwayne Myers 2023-02-08 07:25:00 2023-02-08 11:19:00 Outpatient LINDSEY PADILLA [facility] [id number] [facility] 2022-12-25 15:45:30 2022-12-25 15:45:30 Outpatient [facility] [id number] Dwayne Myers 2022-12-25 00:00:00 2022-12-25 00:00:00 Orders Only Doctor Unassigned, [place] [facility] 1.2.840.114 350.1.13.10 4.2.7.2.686 [id number] [facility] 2022-12-21 13:08:22 2022-12-21 13:08:22 Outpatient [facility] [id number] Dwayne Myers 2022-12-19 09:43:00 2022-12-19 09:43:00 Outpatient [facility] [id number] Dwayne Bah [place] 2022-12-11 20:12:00 2022-12-11 22:35:00 Emergency E LÁZARO MUNIZ [facility] [id number] [facility] 2022-12-10 19:03:00 2022-12-10 20:52:00 Emergency X OREN TOVAR [facility] ERT [id number] [facility] 2022-12-10 19:03:00 2022-12-10 20:52:00 Emergency Oren Tovar [facility] 1.2.840.114 350.1.13.10 4.2.7.2.686 [id number] [facility] 2022-11-23 09:56:39 2022-11-23 09:56:39 Outpatient [facility] 3 Dwayne Myers 2022-11-22 00:00:00 2022-11-22 00:00:00 Orders Only Doctor Unassigned, [place] [facility] 1.2.840.114 350.1.13.10 4.2.7.2.686 [id number] [facility] 2022-11-21 08:34:36 2022-11-21 08:34:36 Outpatient [facility] 320 Dwayne Myers 2022-11-04 21:58:00 2022-11-05 17:13:00 Outpatient X [facility] [id number] [facility] 2022-11-04 21:58:00 2022-11-05 17:13:00 Emergency Yuniel Mccray [facility] ([facility]) 1.2.840.114 350.1.13.10 4.2.7.2.686 [id number] [facility] 2022-10-02 10:16:38 2022-10-02 10:16:38 Outpatient [facility] [id number] Dwayne Myers 2022-09-25 10:41:57 2022-09-25 10:41:57 Outpatient [facility] 122 Dwayne Myers 2022-09-25 00:00:00 2022-09-25 00:00:00 Outpatient Visit [id number] 2022-09-22 10:48:03 2022-09-22 10:48:03 Outpatient [facility] 119 Dwayne Myers 2022-09-21 15:48:42 2022-09-21 15:48:[address] [facility] [id number] Dwayne Myers 2022-09-21 00:00:00 2022-09-21 00:00:00 Outpatient Visit [id number] 2022-08-17 10:58:00 2022-08-17 13:20:00 Outpatient Jonh CAMERON [facility] [id number] [facility] 2022-08-11 11:20:53 2022-08-11 11:20:[address] [facility] [id number] Dwayne Myers 2022-08-11 00:00:00 2022-08-11 00:00:00 Outpatient Visit [id number] 2022-07-25 19:54:00 2022-07-27 14:01:00 Outpatient X ANAYA KLINE [facility] [id number] [facility] 2022-07-25 19:54:00 2022-07-27 14:01:00 Emergency Sabianism, Umm Hernández, Ced Crisostomolewis [facility] ([facility]) 1.2.840.114 350.1.13.10 4.2.7.2.686 [id number] [facility] 2022-07-20 13:25:00 2022-07-20 16:55:00 Outpatient Jonh RAKESH [facility] [id number] [facility] 2022-06-24 19:56:00 2022-06-26 05:00:00 Inpatient X MICHAEL SHARMA [facility] [id number] [facility] 2022-06-24 19:56:00 2022-06-26 05:00:00 Hospital Encounter Jaden Siddiqui Emran [facility] ([facility]) 1.2.840.114 350.1.13.10 4.2.7.2.686 [id number] [facility] 2022-06-23 18:38:00 2022-06-23 23:25:00 Emergency E LORAINE MELO [facility] [id number] [facility] 2022-06-21 23:43:00 2022-06-22 10:50:00 Outpatient E CHRISTIAN VITAL [facility] TELE [id number] [facility] 2022-06-15 11:12:00 2022-06-15 15:38:00 Outpatient Jonh CAMERON [facility] [id number] [facility] 2022-06-08 00:00:00 2022-06-08 00:00:00 Orders Only Doctor Unassigned, [place] [facility] 1.2.840.114 350.1.13.10 4.2.7.2.686 [id number] [facility] 2022-05-31 20:15:00 2022-05-31 22:49:00 Emergency X GABRIEL GARCIA [facility] ERT [id number] [facility] 2022-05-31 20:15:00 2022-05-31 22:49:00 Emergency Gabriel Garcia J [facility] 1.2.840.114 350.1.13.10 4.2.7.2.686 [id number] [facility] 2022-05-11 11:42:00 2022-05-11 23:59:00 Outpatient Jonh CAMERON [facility] [id number] [facility] 2022-04-17 20:00:00 2022-04-17 20:00:00 Outpatient WILMAR BIRCH [facility] [id number] [facility] 2022-04-15 08:00:00 2022-04-15 08:00:00 Outpatient R [facility] [id number] [facility] 2022-04-15 00:00:00 2022-04-15 00:00:00 Outpatient Visit [id number] [id number] 12:15:00 2022-04-06 16:00:00 Outpatient Jonh BHUMIKA CAMERONIR [facility] [id number] [facility] 2022-03-15 20:00:00 2022-03-15 22:30:00 Towel Weaver Visit 1, [facility] Sleep Lab Bed Wilmar Madison [facility] 1..840.114 350.1.13.10 4.2.7.2.686 [id number] [facility] 2022-03-15 20:00:00 2022-03-15 20:00:00 Outpatient R WILMAR MADISON [facility] [id number] [facility] 2022-03-14 15:30:00 2022-03-14 15:45:00 Laboratory Only Only, [facility] Test Wilmar Madison [facility] 1..840.114 350.1.13.10 4.2.7.2.686 [id number] [facility] 2022-03-14 15:30:00 2022-03-14 15:30:00 Outpatient R WILMAR MADISON [facility] [id number] [facility] 2022-03-14 00:00:00 2022-03-14 00:00:00 Orders Only Doctor Unassigned, [place] [facility] 1.2.840.114 350.1.13.10 4.2.7.2.686 [id number] [facility] 2022-02-25 18:18:00 2022-02-26 12:30:00 Out[facility] X [facility] ERIN [id number] [facility] 2022-02-25 18:18:00 2022-02-26 12:30:00 Emergency Jimy Cameron [facility] ([facility]) 1..840.114 350.1.13.10 4.2.7.2.686 [id number] [facility] 2022-02-22 21:42:00 2022-02-23 01:19:00 [facility] [id number] [facility] 2022-02-22 21:42:00 2022-02-23 01:19:00 Emergency Ann Bro [facility] 1..840.114 350.1.13.10 4.2.7.2.686 [id number] [facility] 2022-01-29 14:38:00 2022-01-29 16:55:00 Emergency X SIDDIQUIJADEN MARKS [facility] ERT [id number] [facility] 2022-01-29 14:38:00 2022-01-29 16:55:00 Emergency Siddiqui, Jaden [facility] ([facility]) 1..840.114 350.1.13.10 4.2.7.2.686 [id number] [facility] 2022-01-29 07:51:00 2022-01-29 10:37:00 Emergency X MAI DEL ROSARIO [facility] ERT [id number] [facility] 2022-01-29 07:51:00 2022-01-29 10:37:00 Emergency Mai Del Rosario [facility] 1.2.840.114 350.1.13.10 4.2.7.2.686 [id number] [facility] 2022-01-05 10:46:00 2022-01-05 14:42:00 Outpatient LINDSEY PADILLA [facility] [id number] [facility] 2022-01-02 21:43:00 2022-01-03 00:14:00 Emergency X JACKLYN GUILLEN [facility] ERT [id number] [facility] 2022-01-02 21:43:00 2022-01-03 00:14:00 Emergency Jacklyn Guillen [facility] 1.2.840.114 350.1.13.10 4.2.7.2.686 [id number] [facility] 2021-12-08 00:00:00 2021-12-08 00:00:00 Transition of Care Marjan Heart [facility]AS HERNANDEZ 1.2.840.114 350.1.13.10 4.2.7.2.686 [id number] [facility] 2021-12-05 17:33:00 2021-12-07 12:01:00 Inpatient X GELY HERNANDEZ [facility] [id number] [facility] 2021-12-05 17:33:00 2021-12-07 12:01:00 Hospital Encounter Oren Tovar Wakili S Lakhani, Adnan [facility] 1.2.840.114 350.1.13.10 4.2.7.2.686 [id number] [facility] 2021-12-03 12:50:00 2021-12-05 05:42:00 Outpatient X WILFRID PEARSON [facility] ERIN [id number] [facility] 2021-12-03 12:50:00 2021-12-05 05:42:00 Hospital Encounter Maury Brush [facility] ([facility]) 1.2.840.114 350.1.13.10 4.2.7.2.686 [id number] [facility] 2021-11-23 00:00:00 2021-11-23 00:00:00 Orders Only Doctor Unassigned, [place] [facility] 1.2.840.114 350.1.13.10 4.2.7.2.686 [id number] [facility] 2021-11-15 00:00:00 2021-11-15 00:00:00 RefEdelmira Guido [facility] ([facility]) 1.2.840.114 350.1.13.10 4.2.7.2.686 [id number] [facility] 2021-11-09 18:47:00 2021-11-11 17:31:00 Outpatient X [facility] [id number] [facility] 2021-11-09 18:47:00 2021-11-11 17:31:00 Emergency Jimy Cameron [facility] ([facility]) 1.2.840.114 350.1.13.10 4.2.7.2.686 [id number] [facility] 2021-11-07 00:00:00 2021-11-07 00:00:00 Orders Only Doctor Unassigned, [place] [facility] 1.2840.114 350.1.13.10 4.2.7.2.686 [id number] [facility] Systems 2021-11-03 00:00:00 2021-11-03 00:00:00 Orders Only Doctor Unassigned, [place] [facility] 1.2840.114 350.1.13.10 4.2.7.2.686 [id number] [facility] 2021-10-25 00:00:00 2021-10-25 00:00:00 Transition of Care [place] CHAS HERNANDEZ 1.2.840.114 350.1.13.10 4.2.7.2.686 [id number] [facility] 2021-10-15 00:23:00 2021-10-24 17:53:00 Inpatient U FLASH [facility] ERIN [id number] [facility] 2021-10-15 00:23:00 2021-10-24 17:53:00 Hospital Encounter Blanca Talavera, Faraz [facility]ad[facility] ([facility]) 1.2840.114 350.1.13.10 4.2.7.2.686 [id number] [facility] 2021-10-21 10:00:00 2021-10-21 10:45:00 Surgery Abu Atherah, Anaya [facility] ([facility]) 1.2840.114 350.1.13.10 4.2.7.2.686 [id number] [facility] 2021-06-09 00:00:00 2021-06-09 00:00:00 Orders Only Doctor Unassigned, [place] [facility] 1.2840.114 350.1.13.10 4.2.7.2.686 [id number] [facility] 2012-11-25 00:00:00 2012-11-25 16:37:20 Outpatient GABRIEL SHAIKH [facility] [id number] [facility] 2012-04-08 00:00:00 2012-04-08 16:51:12 Outpatient [facility] [id number] [facility] 2011-04-13 00:00:00 2011-04-13 10:43:11 Outpatient [facility] [id number] [facility] 2010-09-15 00:00:00 2010-09-15 11:23:44 Outpatient [facility] [id number] [facility] 2010-03-11 00:00:00 2010-03-11 16:25:54 Outpatient [facility] [id number] [facility] 2009-09-13 00:00:00 2009-09-13 16:22:48 Outpatient [facility] [id number] [facility] 2009-08-31 00:00:00 2009-08-31 09:36:31 Outpatient [facility] [id number] [facility] Results Test Description Test Time Test Comments Results Result Co mments Source CULTURE, URINE 2024-07-02 08:02:48 SPECIMEN NUMBER: [id number] CULTURE, URINE SPECIMEN NUMBER: [id number] SOURCE: URINE REPORT STATUS: FINAL FINAL REPORT: 07/02/2024 <10,000 CFU/ML UROGENITAL GEMA PRESENT NO COMMON PATHOGENS UNLESS OTHERWISE INDICATED, ALL TESTING PERFORMED AT [facility] [address] [place] [address] STORAGE MANAGER: BO MILLER M.D. CLIA NUMBER [id number] [facility] [place]. [id number] Dwayne Bah AustinH. PYLORI (BREATH)2024-04-21 00:00:00* Test Item Value Reference Range Interpretation Comme nts H. PYLORI (BREATH) (test cod e = 00439) NEGATIVE Dwayne MyersCULTURE, [id number] 00:00:00* Test Item Value Reference Range Interpretation Comme nts CULTURE, URINE (test code = 77980) SPECIMEN NUMBER: [id number] Dwayne MyersCULTURE, [id number] 00:00:00* Test Item Value Reference Range Interpretation Comme nts CULTURE, URINE (test code = 84887) SPECIMEN NUMBER: [id number] Dwayne MyersPAP TEST, THINPREP, [id number] 17:20:29* Test Item Value Reference Range Interpretation Comme nts SOURCE: (test code = 8001) Cervical/Endoce rvical SLIDES: (test code = 8011) 1 LMP: (test code = 8021) NOT GIVEN SPECIMEN ADEQUACY: (test code = 17743) (NOTE) Satisfactory for evaluation. Endocervical cells/transformation zone component not identified. INTERPRETATION: (test code = 86313) NILM/NO EPITH. ABNORMALITY;SEE BELOW --- - NEGATIVE FOR INTRAEPITHELIAL LESION OR MALIGNANCY (NILM) ---- OTHER COMMENTS: (test code = 8081) (NOTE) Fungal organisms consistent with Deb present. [employer] ABATEMENT WORKER : (test code = 8101) Mala Hernandez LOCATION: (test code = 23041) (NOTE) Specimens proces sed and interpreted at [facility], [address] [place] [address], , CLIA: [id number] CPT: (test code = 8140) 630[address] UNLESS OTHERWISE INDICATED, COMPUTER AIDED AND [employer] ABATEMENT WORKER SCREENING PERFORMED. The Pap test is a screening test with an inherent, but low probability of error. Your patient should be reminded to consult you immediately if she experiences any suspicious signs or symptoms, regardless of her Pap test result. An alternate report format containing images or consolidated prior Pap history is available as applicable. UNLESS OTHERWISE INDICATED, ALL TESTING PERFORMED AT [facility] [address] [place] [address] STORAGE MANAGER: BO MILLER M.D. CLIA NUMBER [id number] [facility] [place]. [id number] VAGINAL PATHOGENS DNA [id number] 13:50:10* Test Item Value Reference Range Interpretation Comme nts DEB SPECIES (test code = 26480) POSITIVE NEGATIVE A G. VAGINALIS (test code = 05329) NEGATIVE NEGATIVE T. VAGINALIS (test code = 80828) NEGATIVE NEGATIVE Note: The [facility] VPIII Microbial Identification Testis a DNA probe test intended for use in the detectionand identification of Deb species, Gardnerellavaginalis and Trichomonas vaginalis nucleic acid. UNLESS OTHERWISE INDICATED, ALL TESTING PERFORMED AT [facility] [address] [place] [address] STORAGE MANAGER: BO MILLER M.D. CLIA NUMBER [id number] [facility] [place]. [id number] VAGINAL PATHOGENS DNA [id number] 00:00:00* Test Item Value Reference Range Interpretation Comme nts DEB SPECIES (test code = 32810) POSITIVE G. VAGINALIS (test code = 55600) NEGATIVE T. VAGINALIS (test code = 63025) NEGATIVE Dwayne MyersPAP TEST, THINPREP, [id number] 00:00:00* Test Item Value Reference Range Interpretation Comme nts SOURCE: (test code = 800) Cervical/Endocervical SLIDES: (test code = 8011) 1 LMP: (test code = 8021) NOT GIVEN SPECIMEN ADEQUACY: (test code = 33310) (NOTE) INTERPRETATION: (test code = 68110) NILM/NO EPITH. ABNORMALITY;SEE BELOW OTHER COMMENTS: (test code = 8081) (NOTE) [employer] ABATEMENT WORKER: (test code = 8101) Mala Hernandez LOCATION: (test code = 94411) (NOTE) CPT: (test code = 8140) 16666 PDFE (test code = PDFReport) PDF Dwayne MyersPAP TEST, THINPREP, [id number] 00:00:00* Test Item Value Reference Range Interpretation Comme nts SOURCE: (test code = 800) Cervical/Endocervical SLIDES: (test code = 8011) 1 LMP: (test code = 8021) NOT GIVEN SPECIMEN ADEQUACY: (test code = 51838) (NOTE) INTERPRETATION: (test code = 66801) NILM/NO EPITH. ABNORMALITY;SEE BELOW OTHER COMMENTS: (test code = 8081) (NOTE) [employer] ABATEMENT WORKER: (test code = 8101) Mala Hernandez LOCATION: (test code = 41220) (NOTE) CPT: (test code = 8140) 36832 PDFE (test code = PDFReport) PDF Dwayne Bah AustinVAGINAL PATHOGENS DNA [id number] 00:00:00* Test Item Value Reference Range Interpretation Comme nts DEB SPECIES (test code = ) POSITIVE G. VAGINALIS (test code = 37354) NEGATIVE T. VAGINALIS (test code = 28977) NEGATIVE Dwayne MyersVAGINAL PATHOGENS DNA [id number] 00:00:00* Test Item Value Reference Range Interpretation Comme nts DEB SPECIES (test code = ) POSITIVE G. VAGINALIS (test code = 55423) NEGATIVE T. VAGINALIS (test code = 06516) NEGATIVE Dwayne MyersPAP TEST, THINPREP, [id number] 00:00:00* Test Item Value Reference Range Interpretation Comme nts SOURCE: (test code = 8001) Cervical/Endocervical SLIDES: (test code = 8011) 1 LMP: (test code = 8021) NOT GIVEN SPECIMEN ADEQUACY: (test code = 71671) (NOTE) INTERPRETATION: (test code = 78063) NILM/NO EPITH. ABNORMALITY;SEE BELOW OTHER COMMENTS: (test code = 8081) (NOTE) [employer] ABATEMENT WORKER: (test code = 8101) Mala Hernandez LOCATION: (test code = 48952) (NOTE) CPT: (test code = 8140) [address] PDFE (test code = PDFReport) PDF Dwayne Bah AustinH. PYLORI (BREATH)2024-04-02 16:44:18* Test Item Value Reference Range Interpretation Comme nts H. PYLORI (BREATH) (test code = 70418) NEGATIVE NEGATIVE UNLESS OTHER HAMMONDS INDICATED, ALL TESTING PERFORMED AT [facility] [address] [place] [address] STORAGE MANAGER: BO MILLER M.D. CLIA NUMBER [id number] [facility] [place]. [id number] H. PYLORI (BREATH)2024-04-02 00:00:00* Test Item Value Reference Range Interpretation Comme nts H. PYLORI (BREATH) (test cod e = 30789) NEGATIVE Dwayne Bah AustinH. PYLORI (BREATH)2024-04-02 00:00:00* Test Item Value Reference Range Interpretation Comme nts H. PYLORI (BREATH) (test cod e = 18635) NEGATIVE Dwayne Bah AustinH. PYLORI (BREATH)2024-04-02 00:00:00* Test Item Value Reference Range Interpretation Comme nts H. PYLORI (BREATH) (test cod e = 17035) NEGATIVE Dwayne Bah AustinH. PYLORI (BREATH)2024-04-02 00:00:00* Test Item Value Reference Range Interpretation Comme nts H. PYLORI (BREATH) (test cod e = 11292) NEGATIVE Dwayne Bah AustinH. PYLORI (BREATH)2024-04-02 00:00:00* Test Item Value Reference Range Interpretation Comme nts H. PYLORI (BREATH) (test cod e = 28197) NEGATIVE Dwayne MyersTROPONIN [id number] 23:42:55* Test Item Value Reference Range Interpretation Comme nts TROPONIN I (test code = 5097262914) 0.008 ng/mL <=0.034 LUCILLE (test code = LUCILLE) [...] of biotin. Lab Interpretation (test code = 61927-7) Normal [facility]. METABOLIC PANEL (72646)2024-03-22 23:32:19* Test Item Value Reference Range Interpretation Comme nts NA (test code = 0317339364) 140 mmol/L 135-145 K (test code = 9209718271) 4.2 mmol/L 3.5-5.0 Slight hemolysis CL (test code = 3618344191) 107 mmol/L 98-108 CO2 TOTAL (test code = 7313854444) 26 mmol/L 23-31 AGAP (test code = 8609985972) 7 2-16 BUN (test code = 5479749081) 12 mg/dL 7-23 Slight hemolysis GLUCOSE (test code = 7831948446) 114 mg/dL 70-110 H CREATININE (test code = 2160-0) 0.80 mg/dL 0.50-1.04 TOTAL BILI (test code = 7158476892) 0.5 mg/dL 0.1-1.1 CALCIUM (test code = 5384637998) 9.2 mg/dL 8.6-10.6 T PROTEIN (test code = 4526449822) 7.9 g/dL 6.3-8.2 ALBUMIN (test code = 5000538874) 4.5 g/dL 3.5-5.0 ALK PHOS (test code = 2419846138) 159 U/L 34-122 H Slight hemolysis ALTv (test code = 1742-6) 14 U/L 5-35 AST(SGOT) (test code = 9815437759) 35 U/L 13-40 Slight hemolysis eGFR (test code = 85480-6) 88.2 mL/min/1.73m2 CKD-EPI eGFR (2020). Assuming creatinine has been stable day-to-day for at least three months, the eGFR indicates Category G2 (60 - 89 mL/min/1.73 m2) Lab Interpretation (test code = 90712-3) [facility] 23:32:19* Test Item Value Reference Range Interpretation Comme nts LIPASE (test code = 9213987510) 73 U/L 0-220 Lab Interpretation (test cod e = 08347-8) Normal [facility] WITH [id number] 23:09:14* Test Item Value Reference Range Interpretation Comme nts WBC (test code = 6690-2) 5.05 4.30-11.10 RBC (test code = 789-8) 4.86 3.93-5.25 HGB (test code = 718-7) 12.5 g/dL 11.6-15.0 HCT (test code = 4544-3) 39.7 % 35.7-45.2 MCV (test code = 787-2) 81.7 fL 80.6-95.5 MCH (test code = 785-6) 25.7 pg 25.9-32.8 L MCHC (test code = 786-4) 31.5 g/dL 31.6-35.1 L RDW-SD (test code = 02056-7) 44.5 fL 39.0-49.9 RDW-CV (test code = 788-0) 14.8 % 12.0-15.5 PLT (test code = 777-3) 273 166-358 MPV (test code = 68623-1) 10.5 fL 9.5-12.9 NRBC/100 WBC (test code = 3992156844) 0.0 0.0-10.0 NRBC x10^3 (test code = 1620913628) See_Comment [Automated messa ge] The system which generated this result transmitted reference range: 10*3/?L. The reference range was not used to interpret this result as normal/abnormal. GRAN MAT (NEUT) % (test code = 770-8) 50.4 % IMM GRAN % (test code = 7006139865) 0.20 % LYMPH % (test code = 736-9) 34.1 % MONO % (test code = 5905-5) 12.1 % EOS % (test code = 713-8) 2.0 % BASO % (test code = 706-2) 1.2 % GRAN MAT x10^3(ANC) (test code = 2664018758) 2.55 10*3/uL 1.88-7.09 IMM GRAN x10^3 (test code = 3150784225) 0.00-0.06 LYMPH x10^3 (test code = 731-0) 1.72 10*3/uL 1.32-3.29 MONO x10^3 (test code = 742-7) 0.61 10*3/uL 0.33-0.92 EOS x10^3 (test code = 711-2) 0.10 10*3/uL 0.03-0.39 BASO x10^3 (test code = 704-7) 0.06 10*3/uL 0.01-0.07 Lab Interpretation (test code = 00741-2) Abnormal [facility], [id number] 13:40:06SPECIMEN NUMBER: [id number] CULTURE, URINE SPECIMEN NUMBER: [id number] SPECIMEN COMMENT: URINE SOURCE: URINE REPORT STATUS: FINAL ISOLATE NUMBER 1: ORGANISM: 01/09/2024 >100,000 CFU/ML GRAM NEGATIVEBACILLI IDENTIFICATION: 01/10/2024 ESCHERICHIA COLI E. COLI AMOXICILLIN/CA SENSITIVE <=8/4AMPICILLIN SENSITIVE <=8CEFAZOLIN SENSITIVE <=2CEFTRIAXONE SENSITIVE <=1CIPROFLOXACIN SENSITIVE <=1LEVOFLOXACIN SENSITIVE <=2NITROFURANTOIN SENSITIVE <=32PIP/TAZOBAC SENSITIVE <=16TETRACYCLINE SENSITIVE <=4TOBRAMYCIN SENSITIVE <=4TRIMETH/SULFA SENSITIVE <=2/38NOTE: NUMBERS DISPLAYED REPRESENT MINIMUM INHIBITORY CONCENTRATION (STEVAN) WHICH IS EXPRESSED IN MCG/ML. UNLESS OTHERWISE INDICATED, ALL TESTING PERFORMED AT [facility] [address] [place] [address] STORAGE MANAGER: BO MILLER M.D. [place] NUMBER [id number] [facility] [place] [id number], [id number] 00:00:00* Test Item Value Reference Range Interpretation Comme nts CULTURE, URINE (test code = 83371) SPECIMEN NUMBER: [id number] Dwayne John [id number] 00:00:00* Test Item Value Reference Range Interpretation Comme nts CULTURE, URINE (test code = 56143) SPECIMEN NUMBER: [id number] YOSVANY Hylton2024-05-09 00:00:00* Test Item Value Reference Range Interpretation Comme nts CULTURE, URINE (test code = 39957) SPECIMEN NUMBER: [id number] YOSVANY Hylton2024-05-09 00:00:00* Test Item Value Reference Range Interpretation Comme nts CULTURE, URINE (test code = 55571) SPECIMEN NUMBER: [id number] Dwayne HobsonLTMAL [id number] 00:00:00* Test Item Value Reference Range Interpretation Comme nts CULTURE, URINE (test code = 69373) SPECIMEN NUMBER: [id number] Dwayne HobsonLTMAL [id number] 00:00:00* Test Item Value Reference Range Interpretation Comme nts CULTURE, URINE (test code = 67115) SPECIMEN NUMBER: [id number] Dwayne MyersCBC W/AUTO [id number] 00:00:00* Test Item Value Reference Range Interpretation Comme nts WBC (test code = 1001) 5.5 K/UL RBC (test code = 1002) 4.75 M/UL HEMOGLOBIN (test code = 1003) 13.3 G/DL HEMATOCRIT (test code = 1004) 40.2 % MCV (test code = 1005) 84.6 fL MCH (test code = 1006) 28.0 PG MCHC (test code = 1007) 33.1 G/DL RDW (test code = 1038) 14.1 % NEUTROPHILS (test code = 1008) 51.4 % LYMPHOCYTES (test code = 1010) 38.7 % MONOCYTES (test code = 1011) 6.2 % EOSINOPHILS (test code = 1012) 2.0 % BASOPHILS (test code = 1013) 1.5 % IMMATURE GRANULOCYTES (test code = 1036) 0.2 % NUCLEATED RBCS (test code = 1065) 0.0 /100WBC'S PLATELET COUNT (test code = 1015) 223 K/UL ABSOLUTE NEUTROPHILS (test c ode = 1066) 2.82 K/UL ABSOLUTE LYMPHOCYTES (test c ode = 1067) 2.12 K/UL ABSOLUTE MONOCYTES (test cod e = 1068) 0.34 K/UL ABSOLUTE EOSINOPHILS (test c ode = 1040) 0.11 K/UL ABSOLUTE BASOPHILS (test cod e = 1069) 0.08 K/UL ABS IMMATURE GRANULOCYTES (t est code = 1020) 0.01 K/UL ABS NUCLEATED RBCS (test cod e = 87044) 0.00 K/UL Dwayne MyersPROTHROMBIN TIME (PT)2024-01-08 00:00:00* Test Item Value Reference Range Interpretation Comme nts PROTHROMBIN TIME (PT) (test code = 1402) 12.5 SECONDS INR (test code = 00213) 0.9 Dwayne Niurka [id number] 00:00:00* Test Item Value Reference Range Interpretation Comme nts PTT (test code = 1403) 27.8 SECONDS Dwayne Niurka LouisCBC W/AUTO [id number] 00:00:00* Test Item Value Reference Range Interpretation Comme nts WBC (test code = 1001) 5.5 K/UL RBC (test code = 1002) 4.75 M/UL HEMOGLOBIN (test code = 1003) 13.3 G/DL HEMATOCRIT (test code = 1004) 40.2 % MCV (test code = 1005) 84.6 fL MCH (test code = 1006) 28.0 PG MCHC (test code = 1007) 33.1 G/DL RDW (test code = 1038) 14.1 % NEUTROPHILS (test code = 1008) 51.4 % LYMPHOCYTES (test code = 1010) 38.7 % MONOCYTES (test code = 1011) 6.2 % EOSINOPHILS (test code = 1012) 2.0 % BASOPHILS (test code = 1013) 1.5 % IMMATURE GRANULOCYTES (test code = 1036) 0.2 % NUCLEATED RBCS (test code = 1065) 0.0 /100WBC'S PLATELET COUNT (test code = 1015) 223 K/UL ABSOLUTE NEUTROPHILS (test c ode = 1066) 2.82 K/UL ABSOLUTE LYMPHOCYTES (test c ode = 1067) 2.12 K/UL ABSOLUTE MONOCYTES (test cod e = 1068) 0.34 K/UL ABSOLUTE EOSINOPHILS (test c ode = 1040) 0.11 K/UL ABSOLUTE BASOPHILS (test cod e = 1069) 0.08 K/UL ABS IMMATURE GRANULOCYTES (t est code = 1020) 0.01 K/UL ABS NUCLEATED RBCS (test cod e = 91219) 0.00 K/UL Dwayne MyersPROTHROMBIN TIME (PT)2024-01-08 00:00:00* Test Item Value Reference Range Interpretation Comme nts PROTHROMBIN TIME (PT) (test code = 1402) 12.5 SECONDS INR (test code = 84104) 0.9 Dwayne [id number] 00:00:00* Test Item Value Reference Range Interpretation Comme nts PTT (test code = 1403) 27.8 SECONDS Dwayne MyersCBC W/AUTO [id number] 00:00:00* Test Item Value Reference Range Interpretation Comme nts WBC (test code = 1001) 5.5 K/UL RBC (test code = 1002) 4.75 M/UL HEMOGLOBIN (test code = 1003) 13.3 G/DL HEMATOCRIT (test code = 1004) 40.2 % MCV (test code = 1005) 84.6 fL MCH (test code = 1006) 28.0 PG MCHC (test code = 1007) 33.1 G/DL RDW (test code = 1038) 14.1 % NEUTROPHILS (test code = 1008) 51.4 % LYMPHOCYTES (test code = 1010) 38.7 % MONOCYTES (test code = 1011) 6.2 % EOSINOPHILS (test code = 1012) 2.0 % BASOPHILS (test code = 1013) 1.5 % IMMATURE GRANULOCYTES (test code = 1036) 0.2 % NUCLEATED RBCS (test code = 1065) 0.0 /100WBC'S PLATELET COUNT (test code = 1015) 223 K/UL ABSOLUTE NEUTROPHILS (test c ode = 1066) 2.82 K/UL ABSOLUTE LYMPHOCYTES (test c ode = 1067) 2.12 K/UL ABSOLUTE MONOCYTES (test cod e = 1068) 0.34 K/UL ABSOLUTE EOSINOPHILS (test c ode = 1040) 0.11 K/UL ABSOLUTE BASOPHILS (test cod e = 1069) 0.08 K/UL ABS IMMATURE GRANULOCYTES (t est code = 1020) 0.01 K/UL ABS NUCLEATED RBCS (test cod e = 24588) 0.00 K/UL Dwayne MyersPROTHROMBIN TIME (PT)2024-01-08 00:00:00* Test Item Value Reference Range Interpretation Comme nts PROTHROMBIN TIME (PT) (test code = 1402) 12.5 SECONDS INR (test code = 52599) 0.9 Dwayne [id number] 00:00:00* Test Item Value Reference Range Interpretation Comme nts PTT (test code = 1403) 27.8 SECONDS Dwayne MyersCBC W/AUTO [id number] 00:00:00* Test Item Value Reference Range Interpretation Comme nts WBC (test code = 1001) 5.5 K/UL RBC (test code = 1002) 4.75 M/UL HEMOGLOBIN (test code = 1003) 13.3 G/DL HEMATOCRIT (test code = 1004) 40.2 % MCV (test code = 1005) 84.6 fL MCH (test code = 1006) 28.0 PG MCHC (test code = 1007) 33.1 G/DL RDW (test code = 1038) 14.1 % NEUTROPHILS (test code = 1008) 51.4 % LYMPHOCYTES (test code = 1010) 38.7 % MONOCYTES (test code = 1011) 6.2 % EOSINOPHILS (test code = 1012) 2.0 % BASOPHILS (test code = 1013) 1.5 % IMMATURE GRANULOCYTES (test code = 1036) 0.2 % NUCLEATED RBCS (test code = 1065) 0.0 /100WBC'S PLATELET COUNT (test code = 1015) 223 K/UL ABSOLUTE NEUTROPHILS (test c ode = 1066) 2.82 K/UL ABSOLUTE LYMPHOCYTES (test c ode = 1067) 2.12 K/UL ABSOLUTE MONOCYTES (test cod e = 1068) 0.34 K/UL ABSOLUTE EOSINOPHILS (test c ode = 1040) 0.11 K/UL ABSOLUTE BASOPHILS (test cod e = 1069) 0.08 K/UL ABS IMMATURE GRANULOCYTES (t est code = 1020) 0.01 K/UL ABS NUCLEATED RBCS (test cod e = 26096) 0.00 K/UL Dwayne Bah LouisPROTHROMBIN TIME (PT)2024-01-08 00:00:00* Test Item Value Reference Range Interpretation Comme nts PROTHROMBIN TIME (PT) (test code = 1402) 12.5 SECONDS INR (test code = 10479) 0.9 Dwayne Bah [id number] 00:00:00* Test Item Value Reference Range Interpretation Comme nts PTT (test code = 1403) 27.8 SECONDS Dwayne Bah LouisCBC W/AUTO [id number] 00:00:00* Test Item Value Reference Range Interpretation Comme nts WBC (test code = 1001) 5.5 K/UL RBC (test code = 1002) 4.75 M/UL HEMOGLOBIN (test code = 1003) 13.3 G/DL HEMATOCRIT (test code = 1004) 40.2 % MCV (test code = 1005) 84.6 fL MCH (test code = 1006) 28.0 PG MCHC (test code = 1007) 33.1 G/DL RDW (test code = 1038) 14.1 % NEUTROPHILS (test code = 1008) 51.4 % LYMPHOCYTES (test code = 1010) 38.7 % MONOCYTES (test code = 1011) 6.2 % EOSINOPHILS (test code = 1012) 2.0 % BASOPHILS (test code = 1013) 1.5 % IMMATURE GRANULOCYTES (test code = 1036) 0.2 % NUCLEATED RBCS (test code = 1065) 0.0 /100WBC'S PLATELET COUNT (test code = 1015) 223 K/UL ABSOLUTE NEUTROPHILS (test c ode = 1066) 2.82 K/UL ABSOLUTE LYMPHOCYTES (test c ode = 1067) 2.12 K/UL ABSOLUTE MONOCYTES (test cod e = 1068) 0.34 K/UL ABSOLUTE EOSINOPHILS (test c ode = 1040) 0.11 K/UL ABSOLUTE BASOPHILS (test cod e = 1069) 0.08 K/UL ABS IMMATURE GRANULOCYTES (t est code = 1020) 0.01 K/UL ABS NUCLEATED RBCS (test cod e = 20090) 0.00 K/UL Dwayne Bah LouisPROTHROMBIN TIME (PT)2024-01-08 00:00:00* Test Item Value Reference Range Interpretation Comme nts PROTHROMBIN TIME (PT) (test code = 1402) 12.5 SECONDS INR (test code = 20746) 0.9 Dwayne Bah [id number] 00:00:00* Test Item Value Reference Range Interpretation Comme nts PTT (test code = 1403) 27.8 SECONDS Dwayne Bah LouisCBC W/AUTO [id number] 00:00:00* Test Item Value Reference Range Interpretation Comme nts WBC (test code = 1001) 5.5 K/UL RBC (test code = 1002) 4.75 M/UL HEMOGLOBIN (test code = 1003) 13.3 G/DL HEMATOCRIT (test code = 1004) 40.2 % MCV (test code = 1005) 84.6 fL MCH (test code = 1006) 28.0 PG MCHC (test code = 1007) 33.1 G/DL RDW (test code = 1038) 14.1 % NEUTROPHILS (test code = 1008) 51.4 % LYMPHOCYTES (test code = 1010) 38.7 % MONOCYTES (test code = 1011) 6.2 % EOSINOPHILS (test code = 1012) 2.0 % BASOPHILS (test code = 1013) 1.5 % IMMATURE GRANULOCYTES (test code = 1036) 0.2 % NUCLEATED RBCS (test code = 1065) 0.0 /100WBC'S PLATELET COUNT (test code = 1015) 223 K/UL ABSOLUTE NEUTROPHILS (test c ode = 1066) 2.82 K/UL ABSOLUTE LYMPHOCYTES (test c ode = 1067) 2.12 K/UL ABSOLUTE MONOCYTES (test cod e = 1068) 0.34 K/UL ABSOLUTE EOSINOPHILS (test c ode = 1040) 0.11 K/UL ABSOLUTE BASOPHILS (test cod e = 1069) 0.08 K/UL ABS IMMATURE GRANULOCYTES (t est code = 1020) 0.01 K/UL ABS NUCLEATED RBCS (test cod e = 72472) 0.00 K/UL Dwayne MyersPROTHROMBIN TIME (PT)2024-01-08 00:00:00* Test Item Value Reference Range Interpretation Comme nts PROTHROMBIN TIME (PT) (test code = 1402) 12.5 SECONDS INR (test code = 75037) 0.9 Dwayne [id number] 00:00:00* Test Item Value Reference Range Interpretation Comme nts PTT (test code = 1403) 27.8 SECONDS Dwayne MyersLIPID [id number] 05:54:09* Test Item Value Reference Range Interpretation Comme nts CHOLESTEROL (test code = 2210) 216 MG/DL <200 H TRIGLYCERIDES (test code = 2232) 292 MG/DL <150 H HDL CHOLESTEROL (test code = 2220) 56 MG/DL >39 CALC LDL CHOL (test code = 2237) 115 MG/DL <100 H NOTE: CALCULATED LDL IS BASED ON GLENIS-MIRELES METHOD WHICHINCLUDES ADJUSTABLE TRIGLYCERIDE:VLDL CHOLESTEROL RATIO.THIS FACTOR VARIES BY MEASURED TRIGLYCERIDE AND NON-HDLCHOLESTEROL CONCENTRATIONS WITH INCREASED CALCULATED LDL SEENIN HIGHER TRIGLYCERIDE OR LOWER NON-HDL SPECIMENS. FOR MOREINFORMATION, SEE CLIENT ANNOUNCEMENT AT [email or web address] /CalcLDL-C RISK RATIO LDL/HDL (test code = 2238) 2.05 RATIO <3.22 UNLESS OTHERW ISE INDICATED, ALL TESTING PERFORMED AT [facility] [address] [place] [address], [place] [address] STORAGE MANAGER: BO MILLER M.D. CLIA NUMBER [id number] [facility] [place]. [id number] COMPREHENSIVE METABOLIC [id number] 05:54:09* Test Item Value Reference Range Interpretation Comme nts GLUCOSE (test code = 2217) 98 MG/DL 70-99 BUN (test code = 2208) 9 MG/DL 6-20 CREATININE (test code = 2214) 0.97 MG/DL 0.60-1.30 eGFR (2020 CKD-EPI) (test co de = 61894) 70 ML/MIN/1.73 >60 CALC BUN/CREAT (test code = 2234) 9 RATIO 6-28 SODIUM (test code = 2230) 141 MEQ/L 133-146 POTASSIUM (test code = 2227) 4.3 MEQ/L 3.5-5.4 CHLORIDE (test code = 2214) 106 MEQ/L 95-107 CARBON DIOXIDE (test code = 2205) 22 MEQ/L 19-31 CALCIUM (test code = 2208) 9.7 MG/DL 8.5-10.5 PROTEIN, TOTAL (test code = 2228) 6.7 G/DL 6.1-8.3 ALBUMIN (test code = 2200) 4.4 G/DL 3.5-5.2 CALC GLOBULIN (test code = 2239) 2.3 G/DL 1.9-3.7 CALC A/G RATIO (test code = 2233) 1.9 RATIO 1.0-2.6 BILIRUBIN, TOTAL (test code = 2206) 0.3 MG/DL <=1.2 ALKALINE PHOSPHATASE (test code = 2203) 92 U/L 40-133 AST (test code = 8) 15 U/L 9-40 ALT (test code = 9) 21 U/L 5-40 HEMOGLOBIN [id number] 02:34:18* Test Item Value Reference Range Interpretation Comme nts HEMOGLOBIN A1c (test code = 45113) 6.0 % 4.2-5.6 H [employer] GUIDELINES FOR HGB A1C: PREDIABETES/INCREASED RISK . . . . . . . 5.7-6.4% DIAGNOSIS OF DIABETES . . . . . . . . . >=6.5% WITH CONFIRMATION OR APPROPRIATE SYMPTOMS NOTE: ASSAY MAY BE AFFECTED BY HEMOGLOBINOPATHIES (SICKLE CELL ANEMIA, S-C DISEASE, OTHERS) OR ARTIFICIALLY LOWERED BY DECREASED RED CELL SURVIVAL (HEMOLYTIC ANEMIAS, BLOOD LOSS, ETC.). CONSIDER ALTERNATE TESTING OR LABORATORY CONSULTATION. COMPREHENSIVE METABOLIC [id number] 00:00:00* Test Item Value Reference Range Interpretation Comme nts GLUCOSE (test code = 2216) 98 MG/DL BUN (test code = 2207) 9 MG/DL CREATININE (test code = 2214) 0.97 MG/DL eGFR (2020 CKD-EPI) (test co de = 38778) 70 ML/MIN/1.73 CALC BUN/CREAT (test code = 2235) 9 RATIO SODIUM (test code = 2231) 141 MEQ/L POTASSIUM (test code = 2228) 4.3 MEQ/L CHLORIDE (test code = 2215) 106 MEQ/L CARBON DIOXIDE (test code = 2206) 22 MEQ/L CALCIUM (test code = 2209) 9.7 MG/DL PROTEIN, TOTAL (test code = 2229) 6.7 G/DL ALBUMIN (test code = 2201) 4.4 G/DL CALC GLOBULIN (test code = 2240) 2.3 G/DL CALC A/G RATIO (test code = 2234) 1.9 RATIO BILIRUBIN, TOTAL (test code = 2207) 0.3 MG/DL ALKALINE PHOSPHATASE (test code = 2204) 92 U/L AST (test code = 2218) 15 U/L ALT (test code = 2219) 21 U/L Dwayne MyersHEMOGLOBIN [id number] 00:00:00* Test Item Value Reference Range Interpretation Comme nts HEMOGLOBIN A1c (test code = 12993) 6.0 % Dwayne MyersLIPID [id number] 00:00:00* Test Item Value Reference Range Interpretation Comme nts CHOLESTEROL (test code = 2210) 216 MG/DL TRIGLYCERIDES (test code = 2232) 292 MG/DL HDL CHOLESTEROL (test code = 2220) 56 MG/DL CALC LDL CHOL (test code = 2237) 115 MG/DL RISK RATIO LDL/HDL (test cod e = 2238) 2.05 RATIO Dwayne Bah LouisCOMPREHENSIVE METABOLIC [id number] 00:00:00* Test Item Value Reference Range Interpretation Comme nts GLUCOSE (test code = 2217) 98 MG/DL BUN (test code = 2208) 9 MG/DL CREATININE (test code = 2214) 0.97 MG/DL eGFR (2020 CKD-EPI) (test co de = 82762) 70 ML/MIN/1.73 CALC BUN/CREAT (test code = 2235) 9 RATIO SODIUM (test code = 2231) 141 MEQ/L POTASSIUM (test code = 2228) 4.3 MEQ/L CHLORIDE (test code = 2215) 106 MEQ/L CARBON DIOXIDE (test code = 2206) 22 MEQ/L CALCIUM (test code = 2209) 9.7 MG/DL PROTEIN, TOTAL (test code = 2229) 6.7 G/DL ALBUMIN (test code = 2201) 4.4 G/DL CALC GLOBULIN (test code = 2240) 2.3 G/DL CALC A/G RATIO (test code = 2234) 1.9 RATIO BILIRUBIN, TOTAL (test code = 2207) 0.3 MG/DL ALKALINE PHOSPHATASE (test code = 2204) 92 U/L AST (test code = 2218) 15 U/L ALT (test code = 2219) 21 U/L Dwayne MyersHEMOGLOBIN [id number] 00:00:00* Test Item Value Reference Range Interpretation Comme nts HEMOGLOBIN A1c (test code = 23585) 6.0 % Dwayne MyersLIPID [id number] 00:00:00* Test Item Value Reference Range Interpretation Comme nts CHOLESTEROL (test code = 2210) 216 MG/DL TRIGLYCERIDES (test code = 2232) 292 MG/DL HDL CHOLESTEROL (test code = 2220) 56 MG/DL CALC LDL CHOL (test code = 2237) 115 MG/DL RISK RATIO LDL/HDL (test cod e = 2238) 2.05 RATIO Dwayne MyersCOMPREHENSIVE METABOLIC [id number] 00:00:00* Test Item Value Reference Range Interpretation Comme nts GLUCOSE (test code = 2217) 98 MG/DL BUN (test code = 2208) 9 MG/DL CREATININE (test code = 2214) 0.97 MG/DL eGFR (2020 CKD-EPI) (test co de = 46437) 70 ML/MIN/1.73 CALC BUN/CREAT (test code = 2235) 9 RATIO SODIUM (test code = 2231) 141 MEQ/L POTASSIUM (test code = 2228) 4.3 MEQ/L CHLORIDE (test code = 2215) 106 MEQ/L CARBON DIOXIDE (test code = 2206) 22 MEQ/L CALCIUM (test code = 2209) 9.7 MG/DL PROTEIN, TOTAL (test code = 2229) 6.7 G/DL ALBUMIN (test code = 2201) 4.4 G/DL CALC GLOBULIN (test code = 2240) 2.3 G/DL CALC A/G RATIO (test code = 2234) 1.9 RATIO BILIRUBIN, TOTAL (test code = 2207) 0.3 MG/DL ALKALINE PHOSPHATASE (test code = 2204) 92 U/L AST (test code = 2218) 15 U/L ALT (test code = 2219) 21 U/L Dwayne Bah AustinHEMOGLOBIN [id number] 00:00:00* Test Item Value Reference Range Interpretation Comme nts HEMOGLOBIN A1c (test code = 95231) 6.0 % Dwayne Bah AustinLIPID [id number] 00:00:00* Test Item Value Reference Range Interpretation Comme nts CHOLESTEROL (test code = 2210) 216 MG/DL TRIGLYCERIDES (test code = 2232) 292 MG/DL HDL CHOLESTEROL (test code = 2220) 56 MG/DL CALC LDL CHOL (test code = 2237) 115 MG/DL RISK RATIO LDL/HDL (test cod e = 2238) 2.05 RATIO Dwayne MyersCOMPREHENSIVE METABOLIC [id number] 00:00:00* Test Item Value Reference Range Interpretation Comme nts GLUCOSE (test code = 2217) 98 MG/DL BUN (test code = 2208) 9 MG/DL CREATININE (test code = 2214) 0.97 MG/DL eGFR (2020 CKD-EPI) (test co de = 44641) 70 ML/MIN/1.73 CALC BUN/CREAT (test code = 2235) 9 RATIO SODIUM (test code = 2231) 141 MEQ/L POTASSIUM (test code = 2228) 4.3 MEQ/L CHLORIDE (test code = 2215) 106 MEQ/L CARBON DIOXIDE (test code = 2206) 22 MEQ/L CALCIUM (test code = 2209) 9.7 MG/DL PROTEIN, TOTAL (test code = 2229) 6.7 G/DL ALBUMIN (test code = 2201) 4.4 G/DL CALC GLOBULIN (test code = 2240) 2.3 G/DL CALC A/G RATIO (test code = 2234) 1.9 RATIO BILIRUBIN, TOTAL (test code = 2207) 0.3 MG/DL ALKALINE PHOSPHATASE (test code = 2204) 92 U/L AST (test code = 2218) 15 U/L ALT (test code = 2219) 21 U/L Dwayne Bah AustinHEMOGLOBIN [id number] 00:00:00* Test Item Value Reference Range Interpretation Comme nts HEMOGLOBIN A1c (test code = 46417) 6.0 % Dwayne MyersLIPID [id number] 00:00:00* Test Item Value Reference Range Interpretation Comme nts CHOLESTEROL (test code = 2210) 216 MG/DL TRIGLYCERIDES (test code = 2232) 292 MG/DL HDL CHOLESTEROL (test code = 2220) 56 MG/DL CALC LDL CHOL (test code = 2237) 115 MG/DL RISK RATIO LDL/HDL (test cod e = 2238) 2.05 RATIO Dwayne MyersCOMPREHENSIVE METABOLIC [id number] 00:00:00* Test Item Value Reference Range Interpretation Comme nts GLUCOSE (test code = 2217) 98 MG/DL BUN (test code = 2208) 9 MG/DL CREATININE (test code = 2214) 0.97 MG/DL eGFR (2020 CKD-EPI) (test co de = 44661) 70 ML/MIN/1.73 CALC BUN/CREAT (test code = 2235) 9 RATIO SODIUM (test code = 2231) 141 MEQ/L POTASSIUM (test code = 2228) 4.3 MEQ/L CHLORIDE (test code = 2215) 106 MEQ/L CARBON DIOXIDE (test code = 2206) 22 MEQ/L CALCIUM (test code = 2209) 9.7 MG/DL PROTEIN, TOTAL (test code = 2229) 6.7 G/DL ALBUMIN (test code = 2201) 4.4 G/DL CALC GLOBULIN (test code = 2240) 2.3 G/DL CALC A/G RATIO (test code = 2234) 1.9 RATIO BILIRUBIN, TOTAL (test code = 2207) 0.3 MG/DL ALKALINE PHOSPHATASE (test code = 2204) 92 U/L AST (test code = 2218) 15 U/L ALT (test code = 2219) 21 U/L Dwayne MyersHEMOGLOBIN [id number] 00:00:00* Test Item Value Reference Range Interpretation Comme nts HEMOGLOBIN A1c (test code = 00301) 6.0 % Dwayne Bah AustinLIPID [id number] 00:00:00* Test Item Value Reference Range Interpretation Comme nts CHOLESTEROL (test code = 2210) 216 MG/DL TRIGLYCERIDES (test code = 2232) 292 MG/DL HDL CHOLESTEROL (test code = 2220) 56 MG/DL CALC LDL CHOL (test code = 2237) 115 MG/DL RISK RATIO LDL/HDL (test cod e = 2238) 2.05 RATIO Dwayne MyersCOMPREHENSIVE METABOLIC [id number] 00:00:00* Test Item Value Reference Range Interpretation Comme nts GLUCOSE (test code = 2217) 98 MG/DL BUN (test code = 2208) 9 MG/DL CREATININE (test code = 2214) 0.97 MG/DL eGFR (2020 CKD-EPI) (test co de = 63150) 70 ML/MIN/1.73 CALC BUN/CREAT (test code = 2235) 9 RATIO SODIUM (test code = 2231) 141 MEQ/L POTASSIUM (test code = 2228) 4.3 MEQ/L CHLORIDE (test code = 2215) 106 MEQ/L CARBON DIOXIDE (test code = 2206) 22 MEQ/L CALCIUM (test code = 2209) 9.7 MG/DL PROTEIN, TOTAL (test code = 2229) 6.7 G/DL ALBUMIN (test code = 2201) 4.4 G/DL CALC GLOBULIN (test code = 2240) 2.3 G/DL CALC A/G RATIO (test code = 2234) 1.9 RATIO BILIRUBIN, TOTAL (test code = 2207) 0.3 MG/DL ALKALINE PHOSPHATASE (test code = 2204) 92 U/L AST (test code = 2218) 15 U/L ALT (test code = 2219) 21 U/L Dwayne MyersHEMOGLOBIN [id number] 00:00:00* Test Item Value Reference Range Interpretation Comme nts HEMOGLOBIN A1c (test code = 98081) 6.0 % Dwayne MyersLIPID [id number] 00:00:00* Test Item Value Reference Range Interpretation Comme nts CHOLESTEROL (test code = 2210) 216 MG/DL TRIGLYCERIDES (test code = 2232) 292 MG/DL HDL CHOLESTEROL (test code = 2220) 56 MG/DL CALC LDL CHOL (test code = 2237) 115 MG/DL RISK RATIO LDL/HDL (test cod e = 2238) 2.05 RATIO Dwayne MyersXR KNEE 3 VW [id number] 04:27:07EXAM:XR KNEE 3 VW RIGHT, XR ANKLE 3+ VW RIGHT, XR FEMUR 2 VW RIGHT, XR HIPS 2 VW RIGHT HISTORY: 52 years old Female; Fall, knee pain COMPARISON: None FINDINGS: Radiographs of the right hip, femur, knee, and ankle demonstrates nodislocation. Severe right hip and mild knee degenerative changes are seenwith incongruity of the superior femoral head. Additionally, there ispatchy sclerosis of the rightfemoral head. Ankle mortise is congruent.Superior patellar enthesophytes are present. Posterior plan tarenthesophytes are also seen. Dystrophic calcifications along the superiorpatellar tendon are suggested.[facility] VW [id number] 04:27:07EXAM:XR KNEE 3 VW RIGHT, XR ANKLE 3+ VW RIGHT, XR FEMUR 2 VW RIGHT, XR HIPS 2 VW RIGHT HISTORY: 52 years old Female; Fall, knee pain COMPARISON: None FINDINGS: Radiographs of the right hip, femur, knee, and ankle demonstrates nodislocation. Severe right hip and mild knee degenerative changes are seenwith incongruity of the superior femoral head. Additionally, there ispatchy sclerosis of the rightfemoral head. Ankle mortise is congruent.Superior patellar enthesophytes are present. Posterior plan tarenthesophytes are also seen. Dystrophic calcifications along the superiorpatellar tendon are suggested.[facility]+ VW [id number] 04:27:07EXAM:XR KNEE 3 VW RIGHT, XR ANKLE 3+ VW RIGHT, XR FEMUR 2 VW RIGHT, XR HIPS 2 VW RIGHT HISTORY: 52 years old Female; Fall, knee pain COMPARISON: None FINDINGS: Radiographs of the right hip, femur, knee, and ankle demonstrates nodislocation. Severe right hip and mild knee degenerative changes are seenwith incongruity of the superior femoral head. Additionally, there ispatchy sclerosis of the rightfemoral head. Ankle mortise is congruent.Superior patellar enthesophytes are present. Posterior plan tarenthesophytes are also seen. Dystrophic calcifications along the superiorpatellar tendon are suggested.[facility] FEM[facility] 2 VW [id number] 04:27:07EXAM:XR KNEE 3 VW RIGHT, XR ANKLE 3+ VW RIGHT, XR FEMUR 2 VW RIGHT, XR HIPS 2 VW RIGHT HISTORY: 52 years old Female; Fall, knee pain COMPARISON: None FINDINGS: Radiographs of the right hip, femur, knee, and ankle demonstrates nodislocation. Severe right hip and mild knee degenerative changes are seenwith incongruity of the superior femoral head. Additionally, there ispatchy sclerosis of the rightfemoral head. Ankle mortise is congruent.Superior patellar enthesophytes are present. Posterior plan tarenthesophytes are also seen. Dystrophic calcifications along the superiorpatellar tendon are suggested.[facility] ALBUMIN/CREATININE RATIO, URINE, [id number] 04:41:49* Test Item Value Reference Range Interpretation Comme nts CREATININE, URINE, CONC. (test code = 2071) 352.8 MG/DL NOT ESTAB ALBUMIN, URINE, RANDOM (test code = 98241) 2.5 MG/DL NOT ESTAB CALC ALBUMIN/CREAT, RND (test code = 21411) 7 MG/G <30 Note: Albumin/Cr eatinine ratio reference interval reflects ADA and NKF guidelines. UNLESS OTHERWISE INDICATED, ALL TESTING PERFORMED AT [facility] [address] [place] [address] STORAGE MANAGER: BO MILLER M.D. CLIA NUMBER [id number] [place]. [id number] ALBUMIN/CREATININE RATIO, RANDOM [id number] 00:00:00* Test Item Value Reference Range Interpretation Comme nts CREATININE, URINE, CONC. (te st code = 2071) 352.8 MG/DL ALBUMIN, URINE, RANDOM (test code = 26557) 2.5 MG/DL CALC ALBUMIN/CREAT, RND (ector t code = 09401) 7 MG/G Dwayne F AustinALBUMIN/CREATININE RATIO, RANDOM [id number] 00:00:00* Test Item Value Reference Range Interpretation Comme nts CREATININE, URINE, CONC. (te st code = 2071) 352.8 MG/DL ALBUMIN, URINE, RANDOM (test code = 84309) 2.5 MG/DL CALC ALBUMIN/CREAT, RND (ector t code = 79245) 7 MG/G Dwayne F AustinALBUMIN/CREATININE RATIO, RANDOM [id number] 00:00:00* Test Item Value Reference Range Interpretation Comme nts CREATININE, URINE, CONC. (te st code = 2071) 352.8 MG/DL ALBUMIN, URINE, RANDOM (test code = 55977) 2.5 MG/DL CALC ALBUMIN/CREAT, RND (ector t code = 43029) 7 MG/G Dwayne F AustinALBUMIN/CREATININE RATIO, RANDOM [id number] 00:00:00* Test Item Value Reference Range Interpretation Comme nts CREATININE, URINE, CONC. (te st code = 2071) 352.8 MG/DL ALBUMIN, URINE, RANDOM (test code = 79265) 2.5 MG/DL CALC ALBUMIN/CREAT, RND (ector t code = 52659) 7 MG/G Dwayne F AustinALBUMIN/CREATININE RATIO, RANDOM [id number] 00:00:00* Test Item Value Reference Range Interpretation Comme nts CREATININE, URINE, CONC. (te st code = 2071) 352.8 MG/DL ALBUMIN, URINE, RANDOM (test code = 53541) 2.5 MG/DL CALC ALBUMIN/CREAT, RND (ector t code = 10020) 7 MG/G Dwayne F AustinALBUMIN/CREATININE RATIO, RANDOM [id number] 00:00:00* Test Item Value Reference Range Interpretation Comme nts CREATININE, URINE, CONC. (te st code = 2071) 352.8 MG/DL ALBUMIN, URINE, RANDOM (test code = 61531) 2.5 MG/DL CALC ALBUMIN/CREAT, RND (ector t code = 29582) 7 MG/G Dwayne F AustinALBUMIN/CREATININE RATIO, RANDOM [id number] 00:00:00* Test Item Value Reference Range Interpretation Comme nts CREATININE, URINE, CONC. (te st code = 2071) 352.8 MG/DL ALBUMIN, URINE, RANDOM (test code = 35254) 2.5 MG/DL CALC ALBUMIN/CREAT, RND (ector t code = 11827) 7 MG/G Dwayne F AustinALBUMIN/CREATININE RATIO, RANDOM [id number] 00:00:00* Test Item Value Reference Range Interpretation Comme nts CREATININE, URINE, CONC. (te st code = 2071) 352.8 MG/DL ALBUMIN, URINE, RANDOM (test code = 29708) 2.5 MG/DL CALC ALBUMIN/CREAT, RND (ector t code = 11131) 7 MG/G Dwayne F AustinCT HEAD W/O CONTRAST *WW*2023-06-03 23:07:26 [facility] : 1970 Sex: FEXAMINATION:CT HEAD W/O CONTRAST *WW*CLINICAL INDICATION:Female, 52 years [...] MD 06/03/2023 11:07 PM CDT , THIRD [id number] 06:05:55* Test Item Value Reference Range Interpretation Comme nts TSH, THIRD GENERATION (test code = 2821) 1.820 UIU/ML 0.400-4.100 UNLESS OTHERWISE INDICATED, ALL TESTING PERFORMED AT [facility] [address] [place] [id number] STORAGE MANAGER: BO MILLER M.D. CLIA NUMBER [id number] [place]. [id number] TSH, THIRD [id number] 00:00:00* Test Item Value Reference Range Interpretation Comme nts TSH, THIRD GENERATION (test code = 2821) 1.820 UIU/ML Dwayne Patel THIRD [id number] 00:00:00* Test Item Value Reference Range Interpretation Comme nts TSH, THIRD GENERATION (test code = 2821) 1.820 UIU/ML JADEN [place] [id number] 00:00:00* Test Item Value Reference Range Interpretation Comme nts TSH, THIRD GENERATION (test code = 2821) 1.820 UIU/ML Dwayne Patel THIRD [id number] 00:00:00* Test Item Value Reference Range Interpretation Comme nts TSH, THIRD GENERATION (test code = 2821) 1.820 UIU/ML Dwayne Patel THIRD [id number] 00:00:00* Test Item Value Reference Range Interpretation Comme nts TSH, THIRD GENERATION (test code = 2821) 1.820 UIU/ML Dwayne Patel THIRD [id number] 00:00:00* Test Item Value Reference Range Interpretation Comme nts TSH, THIRD GENERATION (test code = 2821) 1.820 UIU/ML JADEN [place] [id number] 00:00:00* Test Item Value Reference Range Interpretation Comme nts TSH, THIRD GENERATION (test code = 2821) 1.820 UIU/ML JADEN [place] [id number] 00:00:00* Test Item Value Reference Range Interpretation Comme nts TSH, THIRD GENERATION (test code = 2821) 1.820 UIU/ML Dwayne Bah AustinCT/NG, NAAT, URINE [ADDED]2023-04-27 00:00:00* Test Item Value Reference Range Interpretation Comme nts CHLAMYDIA, NAAT, URINE (test code = 30366) NEGATIVE GONORRHEA, NAAT, URINE (test code = 51390) NEGATIVE Dwayne Bah AustinHIV 1/2 4TH GEN, RFLX CONF [ADDED]2023-04-27 00:00:00* Test Item Value Reference Range Interpretation Comme nts HIV 1/2 4TH GEN, RFLX CONF ( test code = 3514) NON-REACTIVE Dwayne Bah AustinHEPATITIS PANEL, ACUTE [ADDED]2023-04-27 00:00:00* Test Item Value Reference Range Interpretation Comme nts HEPATITIS A IgM (test code = 42255) NON-REACTIVE HEPATITIS B CORE IgM (test c ode = 4644) NON-REACTIVE HEPATITIS B SURF AG (test co de = 2739) NON-REACTIVE HEPATITIS C ANTIBODY (test c ode = 4675) NON-REACTIVE INTERPRETATION HEPATITIS A: (test code = 2552) (NOTE) INTERPRETATION HEPATITIS B: (test code = 22715) (NOTE) INTERPRETATION HEPATITIS C: (test code = 18798) (NOTE) Dwayne Bah AustinHEMOGLOBIN A1c [ADDED]2023-04-27 00:00:00* Test Item Value Reference Range Interpretation Comme nts HEMOGLOBIN A1c (test code = 96134) 6.3 % Dwayne Bah AustinCT/NG, NAAT, URINE [ADDED]2023-04-27 00:00:00* Test Item Value Reference Range Interpretation Comme nts CHLAMYDIA, NAAT, URINE (test code = 80454) NEGATIVE GONORRHEA, NAAT, URINE (test code = 21930) NEGATIVE Dwayne Bah AustinHIV 1/2 4TH GEN, RFLX CONF [ADDED]2023-04-27 00:00:00* Test Item Value Reference Range Interpretation Comme nts HIV 1/2 4TH GEN, RFLX CONF ( test code = 3514) NON-REACTIVE Dwayne MyersHEPATITIS PANEL, ACUTE [ADDED]2023-04-27 00:00:00* Test Item Value Reference Range Interpretation Comme nts HEPATITIS A IgM (test code = 27515) NON-REACTIVE HEPATITIS B CORE IgM (test c ode = 4644) NON-REACTIVE HEPATITIS B SURF AG (test co de = 2739) NON-REACTIVE HEPATITIS C ANTIBODY (test c ode = 4675) NON-REACTIVE INTERPRETATION HEPATITIS A: (test code = 2552) (NOTE) INTERPRETATION HEPATITIS B: (test code = 96963) (NOTE) INTERPRETATION HEPATITIS C: (test code = 22335) (NOTE) Dwayne Bah AustinHEMOGLOBIN A1c [ADDED]2023-04-27 00:00:00* Test Item Value Reference Range Interpretation Comme nts HEMOGLOBIN A1c (test code = 59195) 6.3 % Dwayne Bah AustinCT/NG, NAAT, URINE [ADDED]2023-04-27 00:00:00* Test Item Value Reference Range Interpretation Comme nts CHLAMYDIA, NAAT, URINE (test code = 25527) NEGATIVE GONORRHEA, NAAT, URINE (test code = 05426) NEGATIVE Dwayne MyersHIV 1/2 4TH GEN, RFLX CONF [ADDED]2023-04-27 00:00:00* Test Item Value Reference Range Interpretation Comme nts HIV 1/2 4TH GEN, RFLX CONF ( test code = 3514) NON-REACTIVE Dwayne Bah AustinHEPATITIS PANEL, ACUTE [ADDED]2023-04-27 00:00:00* Test Item Value Reference Range Interpretation Comme nts HEPATITIS A IgM (test code = 25501) NON-REACTIVE HEPATITIS B CORE IgM (test c ode = 4644) NON-REACTIVE HEPATITIS B SURF AG (test co de = 2739) NON-REACTIVE HEPATITIS C ANTIBODY (test c ode = 4675) NON-REACTIVE INTERPRETATION HEPATITIS A: (test code = 2552) (NOTE) INTERPRETATION HEPATITIS B: (test code = 64833) (NOTE) INTERPRETATION HEPATITIS C: (test code = 18914) (NOTE) Dwayne MyersHEMOGLOBIN A1c [ADDED]2023-04-27 00:00:00* Test Item Value Reference Range Interpretation Comme nts HEMOGLOBIN A1c (test code = 41967) 6.3 % Dwayne Bah AustinCT/NG, NAAT, URINE [ADDED]2023-04-27 00:00:00* Test Item Value Reference Range Interpretation Comme nts CHLAMYDIA, NAAT, URINE (test code = 52157) NEGATIVE GONORRHEA, NAAT, URINE (test code = 67764) NEGATIVE Dwayne MyersHIV 1/2 4TH GEN, RFLX CONF [ADDED]2023-04-27 00:00:00* Test Item Value Reference Range Interpretation Comme nts HIV 1/2 4TH GEN, RFLX CONF ( test code = 3514) NON-REACTIVE Dwayne MyersHEPATITIS PANEL, ACUTE [ADDED]2023-04-27 00:00:00* Test Item Value Reference Range Interpretation Comme nts HEPATITIS A IgM (test code = 02952) NON-REACTIVE HEPATITIS B CORE IgM (test c ode = 4644) NON-REACTIVE HEPATITIS B SURF AG (test co de = 2739) NON-REACTIVE HEPATITIS C ANTIBODY (test c ode = 4675) NON-REACTIVE INTERPRETATION HEPATITIS A: (test code = 2552) (NOTE) INTERPRETATION HEPATITIS B: (test code = 54885) (NOTE) INTERPRETATION HEPATITIS C: (test code = 23186) (NOTE) Dwayne MyersHEMOGLOBIN A1c [ADDED]2023-04-27 00:00:00* Test Item Value Reference Range Interpretation Comme nts HEMOGLOBIN A1c (test code = 68916) 6.3 % Dwayne Bah AustinCT/NG, NAAT, URINE [ADDED]2023-04-27 00:00:00* Test Item Value Reference Range Interpretation Comme nts CHLAMYDIA, NAAT, URINE (test code = 04227) NEGATIVE GONORRHEA, NAAT, URINE (test code = 99023) NEGATIVE Dwayne MyersHIV 1/2 4TH GEN, RFLX CONF [ADDED]2023-04-27 00:00:00* Test Item Value Reference Range Interpretation Comme nts HIV 1/2 4TH GEN, RFLX CONF ( test code = 3514) NON-REACTIVE Dwayne MyersHEPATITIS PANEL, ACUTE [ADDED]2023-04-27 00:00:00* Test Item Value Reference Range Interpretation Comme nts HEPATITIS A IgM (test code = 07848) NON-REACTIVE HEPATITIS B CORE IgM (test c ode = 4644) NON-REACTIVE HEPATITIS B SURF AG (test co de = 2739) NON-REACTIVE HEPATITIS C ANTIBODY (test c ode = 4675) NON-REACTIVE INTERPRETATION HEPATITIS A: (test code = 2552) (NOTE) INTERPRETATION HEPATITIS B: (test code = 17612) (NOTE) INTERPRETATION HEPATITIS C: (test code = 21014) (NOTE) Dwayne Bah AustinHEMOGLOBIN A1c [ADDED]2023-04-27 00:00:00* Test Item Value Reference Range Interpretation Comme nts HEMOGLOBIN A1c (test code = 55839) 6.3 % Dwayne Bah AustinCT/NG, NAAT, URINE [ADDED]2023-04-27 00:00:00* Test Item Value Reference Range Interpretation Comme nts CHLAMYDIA, NAAT, URINE (test code = 80041) NEGATIVE GONORRHEA, NAAT, URINE (test code = 32360) NEGATIVE Dwayne Bah AustinHIV 1/2 4TH GEN, RFLX CONF [ADDED]2023-04-27 00:00:00* Test Item Value Reference Range Interpretation Comme nts HIV 1/2 4TH GEN, RFLX CONF ( test code = 3514) NON-REACTIVE Dwayne MauricioPATITIS PANEL, ACUTE [ADDED]2023-04-27 00:00:00* Test Item Value Reference Range Interpretation Comme nts HEPATITIS A IgM (test code = 43670) NON-REACTIVE HEPATITIS B CORE IgM (test c ode = 4644) NON-REACTIVE HEPATITIS B SURF AG (test co de = 2739) NON-REACTIVE HEPATITIS C ANTIBODY (test c ode = 4675) NON-REACTIVE INTERPRETATION HEPATITIS A: (test code = 2552) (NOTE) INTERPRETATION HEPATITIS B: (test code = 33875) (NOTE) INTERPRETATION HEPATITIS C: (test code = 37837) (NOTE) Dwayne MyersHEMOGLOBIN A1c [ADDED]2023-04-27 00:00:00* Test Item Value Reference Range Interpretation Comme nts HEMOGLOBIN A1c (test code = 55808) 6.3 % Dwayne MyersCT/NG, NAAT, URINE [ADDED]2023-04-27 00:00:00* Test Item Value Reference Range Interpretation Comme nts CHLAMYDIA, NAAT, URINE (test code = 35629) NEGATIVE GONORRHEA, NAAT, URINE (test code = 34070) NEGATIVE Dwayne Bah AustinHIV 1/2 4TH GEN, RFLX CONF [ADDED]2023-04-27 00:00:00* Test Item Value Reference Range Interpretation Comme nts HIV 1/2 4TH GEN, RFLX CONF ( test code = 3514) NON-REACTIVE Dwayne MauricioPATITIS PANEL, ACUTE [ADDED]2023-04-27 00:00:00* Test Item Value Reference Range Interpretation Comme nts HEPATITIS A IgM (test code = 04028) NON-REACTIVE HEPATITIS B CORE IgM (test c ode = 4644) NON-REACTIVE HEPATITIS B SURF AG (test co de = 2739) NON-REACTIVE HEPATITIS C ANTIBODY (test c ode = 4675) NON-REACTIVE INTERPRETATION HEPATITIS A: (test code = 2552) (NOTE) INTERPRETATION HEPATITIS B: (test code = 92715) (NOTE) INTERPRETATION HEPATITIS C: (test code = 31973) (NOTE) Dwayne Bah AustinHEMOGLOBIN A1c [ADDED]2023-04-27 00:00:00* Test Item Value Reference Range Interpretation Comme nts HEMOGLOBIN A1c (test code = 99435) 6.3 % Dwayne MyersCT/NG, NAAT, URINE [ADDED]2023-04-27 00:00:00* Test Item Value Reference Range Interpretation Comme nts CHLAMYDIA, NAAT, URINE (test code = 61134) NEGATIVE GONORRHEA, NAAT, URINE (test code = 00534) NEGATIVE Dwayne MyersHIV 1/2 4TH GEN, RFLX CONF [ADDED]2023-04-27 00:00:00* Test Item Value Reference Range Interpretation Comme nts HIV 1/2 4TH GEN, RFLX CONF ( test code = 3514) NON-REACTIVE Dwayne MyersHEPATITIS PANEL, ACUTE [ADDED]2023-04-27 00:00:00* Test Item Value Reference Range Interpretation Comme nts HEPATITIS A IgM (test code = 45139) NON-REACTIVE HEPATITIS B CORE IgM (test c ode = 4644) NON-REACTIVE HEPATITIS B SURF AG (test co de = 2739) NON-REACTIVE HEPATITIS C ANTIBODY (test c ode = 4675) NON-REACTIVE INTERPRETATION HEPATITIS A: (test code = 2552) (NOTE) INTERPRETATION HEPATITIS B: (test code = 45006) (NOTE) INTERPRETATION HEPATITIS C: (test code = 38439) (NOTE) Dwayne MyersHEMOGLOBIN A1c [ADDED]2023-04-27 00:00:00* Test Item Value Reference Range Interpretation Comme nts HEMOGLOBIN A1c (test code = 05449) 6.3 % Dwayne MyersU/S GALLBLADDER*WW*2023-04-15 05:22:28 [facility] : 1970 Sex: FDICTATION LOCATION: [id number]: Female, 52 years of age with abdominal [...] caliber. LIVER: Normal in echogenicity. No focal massor enlargement. Portal vein is patent with appropriate hepatopedal flow.RIGHT KIDNEY: Unremarkable.OTHER: There is no ascites.IMPRESSION: 1. Heterogeneous echogenic material within gallbladder lumen, most likely tumefactive sludge. No obvious gallstones.2. Mild gallbladder wall thickening.3. No biliary dilatation. Electronically signed by: Desiree Rodrigues MD 04/15/2023 5:22 AM CDT ABDOMEN AND PELVIS WITH CONTRAST*WW*2023-04-15 02:03:27 [facility] : 1970 Sex: FEXAM: CT ABDOMEN PELVIS WITH IV CONTRASTLOCATION: [id number]: Abdominal painTECHNIQUE: Serial axial CT images wereobtained [...] with or without developing infection.Electronically signed by: Sidhdartha Jackson DO 04/15/2023 2:03 AM CDT 7131HSJURINALYSIS WITH MICRO *WW*2023-04-15 01:39:00* Test Item Value [...] code = A74) 16 pg/mL See_Comment [Automated Jellynotea ge] The system which generated this result [...] A84) 13.47 pg/mL 0.00-45.20 CBC (INCLUDES AUTOMATED DIFFERENTIAL)*[id number] 00:18:00* Test Item Value Reference Range Interpretation [...] WRBCMOR) NORMAL C-ARM<1 HR W IMAGES*WW*2023-02-08 11:26:14 [facility] : 1970 Sex: FFluoroscopyLocation Code: [id number] HISTORY: Back painComments: Fluoroscopy was provided during lumbar RFA. Approximately fluoroscopy time was 9.1 seconds. 2 fluoroscopic spot images were taken.IMPRESSION: Fluoroscopy services provided. Please see operative report for full details.Electronically signed by: Iglesia Garvey MD 02/08/2023 11:26 AM CDT + LH [id number] 07:50:33* Test Item Value Reference Range Interpretation [...] LUTEAL PHASE 1.0-11.4 IU/L POSTMENOPAUSAL 7.7-58.5 IU/L [facility] has important pathology staff changes effective 11/01/2022. New pathology staff will provide uninterrupted, excellent patient care and clinical consultation. See URL: [email or web address]. UNLESS OTHERWISE INDICATED, ALL TESTING PERFORMED AT [facility] [address] [place] [address] STORAGE MANAGER: BO MILLER M.D. CLIA NUMBER [id number] [facility] [place]. [id number] FSH + LH [id number] 00:00:00* Test Item Value Reference Range Interpretation Comme nts FOLLICLE STIM HORMONE (test code = 2700) 42.3 IU/L LUTEINIZING HORMONE (test co de = 2776) 25.7 IU/L Dwayne MyersFSH + LH [id number] 00:00:00* Test Item Value Reference Range Interpretation Comme nts FOLLICLE STIM HORMONE (test code = 2700) 42.3 IU/L LUTEINIZING HORMONE (test co de = 2776) 25.7 IU/L Dwayne MyersFSH + LH [id number] 00:00:00* Test Item Value Reference Range Interpretation Comme nts FOLLICLE STIM HORMONE (test code = 2700) 42.3 IU/L LUTEINIZING HORMONE (test co de = 2776) 25.7 IU/L Dwayne MyersFSH + LH [id number] 00:00:00* Test Item Value Reference Range Interpretation Comme nts FOLLICLE STIM HORMONE (test code = 2700) 42.3 IU/L LUTEINIZING HORMONE (test co de = 2776) 25.7 IU/L Dwayne MyersFSH + LH [id number] 00:00:00* Test Item Value Reference Range Interpretation Comme nts FOLLICLE STIM HORMONE (test code = 2700) 42.3 IU/L LUTEINIZING HORMONE (test co de = 2776) 25.7 IU/L Dwayne Bah LouisFSH + LH [id number] 00:00:00* Test Item Value Reference Range Interpretation Comme nts FOLLICLE STIM HORMONE (test code = 2700) 42.3 IU/L LUTEINIZING HORMONE (test co de = 2776) 25.7 IU/L Dwayne MyersFSH + LH [id number] 00:00:00* Test Item Value Reference Range Interpretation Comme nts FOLLICLE STIM HORMONE (test code = 2700) 42.3 IU/L LUTEINIZING HORMONE (test co de = 2776) 25.7 IU/L Dwayne MyersFSH + LH [id number] 00:00:00* Test Item Value Reference Range Interpretation Comme nts FOLLICLE STIM HORMONE (test code = 2700) 42.3 IU/L LUTEINIZING HORMONE (test co de = 2776) 25.7 IU/L Dwayne Bah Louis KNEE RIGHT 1 OR 2 VIEW *WW*2022-12-11 21:28:07 [facility] : 1970 Sex: FExam: Right [...] Alexey Ott MD 12/11/2022 9:28 PM CDT [id number] STIMULATING [id number] 17:34:00* Test Item Value Reference Range Interpretation Comme nts TSH (test code = 0049369409) 1.00 See_Comment Biotin has been reported to cause a negative bias, interpret results relative to patient's use of biotin. [Automated message] The system which generated this result transmitted reference range: 0.45 - 4.70 mIU/L. The reference range was not used to interpret this result as normal/abnormal. Lab Interpretation (test code = 26746-8) Normal [facility] [id number] 14:56:35* Test Item Value Reference Range Interpretation Comme nts TROPONIN I (test code = 5817702308) 0.009 ng/mL <=0.034 LUCILLE (test code = [...] of biotin. Lab Interpretation (test code = 29986-0) Normal [facility] [id number] 07:53:48* Test Item Value Reference Range Interpretation Comme nts TROPONIN I (test code = 4472294685) 0.004 ng/mL <=0.034 LUCILLE (test code = [...] of biotin. Lab Interpretation (test code = 93202-8) Normal [facility] [id number] 07:53:48* Test Item Value Reference Range Interpretation Comme nts NT-proBNP (test code = 4807861812) 61 pg/mL <=125 LUCILLE (test code = LUCILLE) Biotin has been reported to cause a negative bias, interpret results relative to patient's use of biotin. Lab Interpretation (test code = 18554-4) Normal [facility]anoCOMP. METABOLIC PANEL (25944)2022-11-05 07:41:51* Test Item Value Reference Range Interpretation Comme nts NA (test code = 5532250057) 139 mmol/L 135-145 K (test code = 3430128899) 4.4 mmol/L 3.5-5.0 CL (test code = 4517319155) 106 mmol/L 98-108 CO2 TOTAL (test code = 0528205730) 26 mmol/L 23-31 AGAP (test code = 0201835875) 7 2-16 BUN (test code = 7682154511) 9 mg/dL 7-23 GLUCOSE (test code = 3190206623) 100 mg/dL 70-110 CREATININE (test code = 9202857988) 0.86 mg/dL 0.50-1.04 TOTAL BILI (test code = 0066641835) 0.4 mg/dL 0.1-1.1 CALCIUM (test code = 4453906911) 9.1 mg/dL 8.6-10.6 T PROTEIN (test code = 7827179314) 6.8 g/dL 6.3-8.2 ALBUMIN (test code = 5910096447) 4.1 g/dL 3.5-5.0 ALK PHOS (test code = 1464185555) 74 U/L 34-122 ALTv (test code = 1742-6) 21 U/L 5-35 AST(SGOT) (test code = 0162684312) 23 U/L 13-40 eGFR (test code = 4587472409) 69.6 mL/min/1.73m2 LUCILLE (test code = LUCILLE) [...] or urine or abnormalities in imaging tests). [facility]anoPREG[facility] TEST, [id number] 07:39:46* Test Item Value Reference Range Interpretation Comme nts PREG SERUM (test code = 1974170835) Negative LUCILLE (test code = LUCILLE) Less than 10 IU/L. ?If low titer or ectopic is suspected, resubmit specimen in 48-72 hours. [facility]anoACTIVATED PARTIAL THRMPLAS [id number] 07:39:31* Test Item Value Reference Range Interpretation Comme [facility] APTT Patient (test code = 3173-2) 27 See_Comment [Automated messa Comparameglio.it] The system which generated this result transmitted reference range: 26 - 36 Seconds. The reference range was not used to interpret this result as normal/abnormal. Lab Interpretation (test code = 18210-9) Normal [facility]anoPROTHROMBIN TIME / [id number] 07:39:31* Test Item Value Reference Range Interpretation Comme [facility] PROTIME PATIENT (test code = 5964-2) 13.4 See_Comment H [Automated Jellynotea Comparameglio.it] The system which generated this result transmitted reference range: 10.1 - 12.6 Seconds. The reference range was not used to interpret this result as normal/abnormal. INR (test code = 6301-6) 1.2 Normal INR <1.1; Warfarin Therapeutic range 2.0 to 3.0 or 2.5 to 3.5, depending upon the indications. Lab Interpretation (test code = 40480-0) Abnormal [facility]anoD-[id number] 07:39:31* Test Item Value Reference Range Interpretation Comments D-DIMER (test code = 2974215858) 1.06 See_Comment H [Automated message] The system [...] a diagnosis. Lab Interpretation (test code = 11513-9) Abnormal [facility] WITH [id number] 07:28:32* Test Item Value Reference Range Interpretation [...] 32.3 g/dL 31.6-35.1 RDW-SD (test code = 70203-0) 46.0 fL 39.0-49.9 RDW-CV (test code = 788-0) 15.6 % 12.0-15.5 H PLT (test code = 777-3) 272 See_Comment [Automated messa ge] The system which generated this result transmitted reference range: 166 - 358 10*3/?L. The reference range was not used to interpret this result as normal/abnormal. MPV (test code = 98228-8) 11.5 fL 9.5-12.9 NRBC/100 WBC (test code = 7476644318) 0.0 See_Comment [Automated [employer] ssage] The system which generated this result transmitted reference range: 0.0 - 10.0 /100 WBCs. The reference range was not used to interpret this result as normal/abnormal. NRBC x10^3 (test code = 0751957971) See_Comment [Automated messa ge] The system which generated this result transmitted reference range: 10*3/?L. The reference range was not used to interpret this result as normal/abnormal. GRAN MAT (NEUT) % (test code = 770-8) 58.2 % IMM GRAN % (test code = 8446085311) 0.20 % LYMPH % (test code = 736-9) 31.1 % MONO % (test code = 5905-5) 9.3 % EOS % (test code = 713-8) 0.3 % BASO % (test code = 706-2) 0.9 % GRAN MAT x10^3(ANC) (test code = 9875070929) 3.80 10*3/uL 1.88-7.09 IMM GRAN x10^3 (test code = 4479622434) 0.00-0.06 LYMPH x10^3 (test code = 731-0) 2.03 10*3/uL 1.32-3.29 MONO x10^3 (test code = 742-7) 0.61 10*3/uL 0.33-0.92 EOS x10^3 (test code = 711-2) 0.03-0.39 L BASO x10^3 (test code = 704-7) 0.06 10*3/uL 0.01-0.07 Lab Interpretation (test code = 39266-0) Abnormal [facility]anoALBUMIN/CREATININE RATIO, URINE, RANDOM 2022-11-03 05:51:41* Test Item Value Reference Range Interpretation Comme nts CREATININE, URINE, CONC. (test code = 2072) 356.1 MG/DL NOT ESTAB ALBUMIN, URINE, RANDOM (test code = 77930) 2.0 MG/DL NOT ESTAB CALC ALBUMIN/CREAT, RND (test code = 33820) 6 MG/G <30 Note: Albumin/Cr eatinine ratio reference interval reflects ADA and NKF guidelines. [facility] has important pathology staff changes effective 11/01/2022. New pathology staff will provide uninterrupted, excellent patient care and clinical consultation. See URL: [email or web address]. UNLESS OTHERWISE INDICATED, ALL TESTING PERFORMED AT [facility] [address] [place] [address] STORAGE MANAGER: SADIQ VANEGAS M.D. CLIA NUMBER [id number] [facility] [place]. [id number] 05:26:24* Test Item Value Reference Range Interpretation Comme nts NT-proBNP (test code = 08046) <50 PG/ML SEE BELOW If NT-ProBNP is less than 300 PG/ML, heart failure is unlikely for allages. Age.................Heart Failure Likely <50 Years...........>=450 PG/ML 50-75 Years.........>=900 PG/ML > 75 Years..........>=1800 PG/ML Methodology: Mam[employer] Raine Electrochemiluminescense Immunoassay [id number] 00:00:00* Test Item Value Reference Range Interpretation Comme nts NT-proBNP (test code = 43813) <50 PG/ML Dwayne Bah AustinALBUMIN/CREATININE RATIO, RANDOM [id number] 00:00:00* Test Item Value Reference Range Interpretation Comme nts CREATININE, URINE, CONC. (te st code = 2072) 356.1 MG/DL ALBUMIN, URINE, RANDOM (test code = 67059) 2.0 MG/DL CALC ALBUMIN/CREAT, RND (ector t code = 91230) 6 MG/G Dwayne Bah [id number]-[id number] 00:00:00* Test Item Value Reference Range Interpretation Comme nts NT-proBNP (test code = 14237) <50 PG/ML Dwayne Bah AustinALBUMIN/CREATININE RATIO, RANDOM [id number] 00:00:00* Test Item Value Reference Range Interpretation Comme nts CREATININE, URINE, CONC. (te st code = 2072) 356.1 MG/DL ALBUMIN, URINE, RANDOM (test code = 70558) 2.0 MG/DL CALC ALBUMIN/CREAT, RND (ector t code = 41063) 6 MG/G Dwayne Bah [id number]-[id number] 00:00:00* Test Item Value Reference Range Interpretation Comme nts NT-proBNP (test code = 22098) <50 PG/ML Dwayne Bah AustinALBUMIN/CREATININE RATIO, RANDOM [id number] 00:00:00* Test Item Value Reference Range Interpretation Comme nts CREATININE, URINE, CONC. (te st code = 2071) 356.1 MG/DL ALBUMIN, URINE, RANDOM (test code = 74057) 2.0 MG/DL CALC ALBUMIN/CREAT, RND (ector t code = 32325) 6 MG/G Dwayne F [id number]-[id number] 00:00:00* Test Item Value Reference Range Interpretation Comme nts NT-proBNP (test code = 93298) <50 PG/ML Dwayne F AustinALBUMIN/CREATININE RATIO, RANDOM [id number] 00:00:00* Test Item Value Reference Range Interpretation Comme nts CREATININE, URINE, CONC. (te st code = 2071) 356.1 MG/DL ALBUMIN, URINE, RANDOM (test code = 59803) 2.0 MG/DL CALC ALBUMIN/CREAT, RND (ector t code = 06037) 6 MG/G Dwayne F [id number]-[id number] 00:00:00* Test Item Value Reference Range Interpretation Comme nts NT-proBNP (test code = 70301) <50 PG/ML Dwayne F AustinALBUMIN/CREATININE RATIO, RANDOM [id number] 00:00:00* Test Item Value Reference Range Interpretation Comme nts CREATININE, URINE, CONC. (te st code = 2071) 356.1 MG/DL ALBUMIN, URINE, RANDOM (test code = 38774) 2.0 MG/DL CALC ALBUMIN/CREAT, RND (ector t code = 57244) 6 MG/G Dwayne F [id number]-[id number] 00:00:00* Test Item Value Reference Range Interpretation Comme nts NT-proBNP (test code = 72039) <50 PG/ML Dwayne F AustinALBUMIN/CREATININE RATIO, RANDOM [id number] 00:00:00* Test Item Value Reference Range Interpretation Comme nts CREATININE, URINE, CONC. (te st code = 2071) 356.1 MG/DL ALBUMIN, URINE, RANDOM (test code = 07177) 2.0 MG/DL CALC ALBUMIN/CREAT, RND (ector t code = 14623) 6 MG/G Dwayne F [id number]-[id number] 00:00:00* Test Item Value Reference Range Interpretation Comme nts NT-proBNP (test code = 66322) <50 PG/ML Dwayne F AustinALBUMIN/CREATININE RATIO, RANDOM [id number] 00:00:00* Test Item Value Reference Range Interpretation Comme nts CREATININE, URINE, CONC. (te st code = 2071) 356.1 MG/DL ALBUMIN, URINE, RANDOM (test code = 56158) 2.0 MG/DL CALC ALBUMIN/CREAT, RND (ector t code = 32324) 6 MG/G Dwayne MyersHjiltxFQ-[id number] 00:00:00* Test Item Value Reference Range Interpretation Comme nts NT-proBNP (test code = 89232) <50 PG/ML Dwayne Bah AustinALBUMIN/CREATININE RATIO, RANDOM [id number] 00:00:00* Test Item Value Reference Range Interpretation Comme nts CREATININE, URINE, CONC. (te st code = 2071) 356.1 MG/DL ALBUMIN, URINE, RANDOM (test code = 97595) 2.0 MG/DL CALC ALBUMIN/CREAT, RND (ector t code = 76698) 6 MG/G Dwayne MyersCOMPREHENSIVE METABOLIC [id number] 06:45:27* Test Item Value Reference Range Interpretation Comme nts GLUCOSE (test code = 2217) 126 MG/DL 70-99 H BUN (test code = 2207) 12 MG/DL 6-20 CREATININE (test code = 2214) 1.24 MG/DL 0.60-1.30 eGFR (2020 CKD-EPI) (test code = 06547) 53 ML/MIN/1.73 >60 L The NKF-ASN Taskforce recommends use of Cystatin C to confirm eGFR inadults at risk for CKD. [facility] offers eGFR with Cystatin C-Creatinineusing the 2020 CKD-EPI eGFR_creat-cystat equation (order code 3057) toincrease the accuracy of estimated GFR. For more information, contactur student accounts coordinator or see announcement [email or web address] CALC BUN/CREAT (test code = 223) 10 RATIO 6-28 SODIUM (test code = 2230) 144 MEQ/L 133-146 POTASSIUM (test code = 2228) 4.0 MEQ/L 3.5-5.4 CHLORIDE (test code = 2215) 110 MEQ/L 95-107 H CARBON DIOXIDE (test code = 2206) 18 MEQ/L 19-31 L CALCIUM (test code = 2208) 9.3 MG/DL 8.5-10.5 PROTEIN, TOTAL (test code = 2228) 6.7 G/DL 6.1-8.3 ALBUMIN (test code = 1) 4.3 G/DL 3.5-5.2 CALC GLOBULIN (test code = 0) 2.4 G/DL 1.9-3.7 CALC A/G RATIO (test code = 2233) 1.8 RATIO 1.0-2.6 BILIRUBIN, TOTAL (test code = 2206) 0.3 MG/DL See_Comment [Automated me ssage] The system which generated this result transmitted reference range: <=1.2. The reference range was not used to interpret this result as normal/abnormal. ALKALINE PHOSPHATASE (test code = 2203) 77 U/L 40-130 AST (test code = 2217) 16 U/L 9-40 ALT (test code = 2218) 15 U/L 5-40 LIPID [id number] 06:45:27* Test Item Value Reference Range Interpretation Comme nts CHOLESTEROL (test code = 0) 182 MG/DL <200 TRIGLYCERIDES (test code = 2) 82 MG/DL <150 HDL CHOLESTEROL (test code = 2219) 50 MG/DL >39 CALC LDL CHOL (test code = 2236) 114 MG/DL <100 H NOTE: CALCULATED LDL IS BASED ON GLENIS-MIRELES METHOD WHICHINCLUDES ADJUSTABLE TRIGLYCERIDE:VLDL CHOLESTEROL RATIO.THIS FACTOR VARIES BY MEASURED TRIGLYCERIDE AND NON-HDLCHOLESTEROL CONCENTRATIONS WITH INCREASED CALCULATED LDL SEENIN HIGHER TRIGLYCERIDE OR LOWER NON-HDL SPECIMENS. FOR MOREINFORMATION, SEE CLIENT ANNOUNCEMENT AT [email or web address] RISK RATIO LDL/HDL (test code = 2237) 2.28 RATIO <3.22 HEMOGLOBIN [id number] 02:34:56* Test Item Value Reference Range Interpretation Comme nts HEMOGLOBIN A1c (test code = 45388) 6.4 % 4.2-5.6 H UNLESS OTHERWISE INDICATED, [facility] TESTING PER[facility] [address] [place] [address], [place] [address] STORAGE MANAGER: SADIQ VANEGAS M.D. CLIA NUMBER [id number] [facility] [place]. [id number] COMPREHENSIVE METABOLIC [id number] 00:00:00* Test Item Value Reference Range Interpretation Comme nts GLUCOSE (test code = 2217) 126 MG/DL BUN (test code = 2208) 12 MG/DL CREATININE (test code = 2214) 1.24 MG/DL eGFR (2020 CKD-EPI) (test co de = 87760) 53 ML/MIN/1.73 CALC BUN/CREAT (test code = [...] (test code = 2219) 15 U/L LIPID [id number] 00:00:00* Test Item Value Reference Range Interpretation Comme nts CHOLESTEROL (test code = 2210) 182 MG/DL TRIGLYCERIDES (test code = 2232) 82 MG/DL HDL CHOLESTEROL (test code = 2220) 50 MG/DL CALC LDL CHOL (test code = 2237) 114 MG/DL RISK RATIO LDL/HDL (test cod e = 2238) 2.28 RATIO HEMOGLOBIN [id number] 00:00:00* Test Item Value Reference Range Interpretation Comme nts HEMOGLOBIN A1c (test code = 09796) 6.4 % COMPREHENSIVE METABOLIC [id number] 00:00:00* Test Item Value Reference Range Interpretation Comme nts GLUCOSE (test code = 2217) 126 MG/DL BUN (test code = 2208) 12 MG/DL CREATININE (test code = 2214) 1.24 MG/DL eGFR (2020 CKD-EPI) (test co de = 09059) 53 ML/MIN/1.73 CALC BUN/CREAT (test code = [...] ALT (test code = 2219) 15 U/L Dwayne MyersLIPID [id number] 00:00:00* Test Item Value Reference Range Interpretation Comme nts CHOLESTEROL (test code = 2210) 182 MG/DL TRIGLYCERIDES (test code = 2232) 82 MG/DL HDL CHOLESTEROL (test code = 2220) 50 MG/DL CALC LDL CHOL (test code = 2237) 114 MG/DL RISK RATIO LDL/HDL (test cod e = 2238) 2.28 RATIO Dwayne MyersHEMOGLOBIN [id number] 00:00:00* Test Item Value Reference Range Interpretation Comme nts HEMOGLOBIN A1c (test code = 58521) 6.4 % Dwayne MyersCOMPREHENSIVE METABOLIC [id number] 00:00:00* Test Item Value Reference Range Interpretation Comme nts GLUCOSE (test code = 2217) 126 MG/DL BUN (test code = 2208) 12 MG/DL CREATININE (test code = 2214) 1.24 MG/DL eGFR (2020 CKD-EPI) (test co de = 91489) 53 ML/MIN/1.73 CALC BUN/CREAT (test code = [...] ALT (test code = 2219) 15 U/L Dwayne MyersLIPID [id number] 00:00:00* Test Item Value Reference Range Interpretation Comme nts CHOLESTEROL (test code = 2210) 182 MG/DL TRIGLYCERIDES (test code = 2232) 82 MG/DL HDL CHOLESTEROL (test code = 2220) 50 MG/DL CALC LDL CHOL (test code = 2237) 114 MG/DL RISK RATIO LDL/HDL (test cod e = 2238) 2.28 RATIO Dwayne MyersHEMOGLOBIN [id number] 00:00:00* Test Item Value Reference Range Interpretation Comme nts HEMOGLOBIN A1c (test code = 08168) 6.4 % Dwayne MyersCOMPREHENSIVE METABOLIC [id number] 00:00:00* Test Item Value Reference Range Interpretation Comme nts GLUCOSE (test code = 2217) 126 MG/DL BUN (test code = 2208) 12 MG/DL CREATININE (test code = 2214) 1.24 MG/DL eGFR (2020 CKD-EPI) (test co de = 04752) 53 ML/MIN/1.73 CALC BUN/CREAT (test code = [...] ALT (test code = 2219) 15 U/L Dwayne MyersLIPID [id number] 00:00:00* Test Item Value Reference Range Interpretation Comme nts CHOLESTEROL (test code = 2210) 182 MG/DL TRIGLYCERIDES (test code = 2232) 82 MG/DL HDL CHOLESTEROL (test code = 2220) 50 MG/DL CALC LDL CHOL (test code = 2237) 114 MG/DL RISK RATIO LDL/HDL (test cod e = 2238) 2.28 RATIO Dwayne MyersHEMOGLOBIN [id number] 00:00:00* Test Item Value Reference Range Interpretation Comme nts HEMOGLOBIN A1c (test code = 53962) 6.4 % Dwayne MyersCOMPREHENSIVE METABOLIC [id number] 00:00:00* Test Item Value Reference Range Interpretation Comme nts GLUCOSE (test code = 2217) 126 MG/DL BUN (test code = 2208) 12 MG/DL CREATININE (test code = 2214) 1.24 MG/DL eGFR (2020 CKD-EPI) (test co de = 62588) 53 ML/MIN/1.73 CALC BUN/CREAT (test code = [...] ALT (test code = 2219) 15 U/L Dwayne MyersLIPID [id number] 00:00:00* Test Item Value Reference Range Interpretation Comme nts CHOLESTEROL (test code = 2210) 182 MG/DL TRIGLYCERIDES (test code = 2232) 82 MG/DL HDL CHOLESTEROL (test code = 2220) 50 MG/DL CALC LDL CHOL (test code = 2237) 114 MG/DL RISK RATIO LDL/HDL (test cod e = 2238) 2.28 RATIO Dwayne MyersHEMOGLOBIN [id number] 00:00:00* Test Item Value Reference Range Interpretation Comme nts HEMOGLOBIN A1c (test code = 59820) 6.4 % Dwayne MyersCOMPREHENSIVE METABOLIC [id number] 00:00:00* Test Item Value Reference Range Interpretation Comme nts GLUCOSE (test code = 2217) 126 MG/DL BUN (test code = 2208) 12 MG/DL CREATININE (test code = 2214) 1.24 MG/DL eGFR (2020 CKD-EPI) (test co de = 34648) 53 ML/MIN/1.73 CALC BUN/CREAT (test code = [...] ALT (test code = 2219) 15 U/L Dwayne Bah AustinLIPID [id number] 00:00:00* Test Item Value Reference Range Interpretation Comme nts CHOLESTEROL (test code = 2210) 182 MG/DL TRIGLYCERIDES (test code = 2232) 82 MG/DL HDL CHOLESTEROL (test code = 2220) 50 MG/DL CALC LDL CHOL (test code = 2237) 114 MG/DL RISK RATIO LDL/HDL (test cod e = 2238) 2.28 RATIO Dwayne Bah AustinHEMOGLOBIN [id number] 00:00:00* Test Item Value Reference Range Interpretation Comme nts HEMOGLOBIN A1c (test code = 91644) 6.4 % Dwayne Bah AustinCOMPREHENSIVE METABOLIC [id number] 00:00:00* Test Item Value Reference Range Interpretation Comme nts GLUCOSE (test code = 2217) 126 MG/DL BUN (test code = 2208) 12 MG/DL CREATININE (test code = 2214) 1.24 MG/DL eGFR (2020 CKD-EPI) (test co de = 12556) 53 ML/MIN/1.73 CALC BUN/CREAT (test code = [...] ALT (test code = 2219) 15 U/L Dwayne Bah AustinLIPID [id number] 00:00:00* Test Item Value Reference Range Interpretation Comme nts CHOLESTEROL (test code = 2210) 182 MG/DL TRIGLYCERIDES (test code = 2232) 82 MG/DL HDL CHOLESTEROL (test code = 2220) 50 MG/DL CALC LDL CHOL (test code = 2237) 114 MG/DL RISK RATIO LDL/HDL (test cod e = 2238) 2.28 RATIO Dwayne MyersHEMOGLOBIN [id number] 00:00:00* Test Item Value Reference Range Interpretation Comme nts HEMOGLOBIN A1c (test code = 35468) 6.4 % Dwayne Bah AustinCOMPREHENSIVE METABOLIC [id number] 00:00:00* Test Item Value Reference Range Interpretation Comme nts GLUCOSE (test code = 2217) 126 MG/DL BUN (test code = 2208) 12 MG/DL CREATININE (test code = 2214) 1.24 MG/DL eGFR (2020 CKD-EPI) (test co de = 03339) 53 ML/MIN/1.73 CALC BUN/CREAT (test code = [...] ALT (test code = 2219) 15 U/L Dwayne Bah AustinLIPID [id number] 00:00:00* Test Item Value Reference Range Interpretation Comme nts CHOLESTEROL (test code = 2210) 182 MG/DL TRIGLYCERIDES (test code = 2232) 82 MG/DL HDL CHOLESTEROL (test code = 2220) 50 MG/DL CALC LDL CHOL (test code = 2237) 114 MG/DL RISK RATIO LDL/HDL (test cod e = 2238) 2.28 RATIO Dwayne MyersHEMOGLOBIN [id number] 00:00:00* Test Item Value Reference Range Interpretation Comme nts HEMOGLOBIN A1c (test code = 74159) 6.4 % Dwayne Bah ChristiansburgCOMPREHENSIVE METABOLIC [id number] 00:00:00* Test Item Value Reference Range Interpretation Comme nts GLUCOSE (test code = 2217) 126 MG/DL BUN (test code = 2208) 12 MG/DL CREATININE (test code = 2214) 1.24 MG/DL eGFR (2020 CKD-EPI) (test co de = 60511) 53 ML/MIN/1.73 CALC BUN/CREAT (test code = [...] ALT (test code = 2219) 15 U/L Dwayne MyersLIPID [id number] 00:00:00* Test Item Value Reference Range Interpretation Comme nts CHOLESTEROL (test code = 2210) 182 MG/DL TRIGLYCERIDES (test code = 2232) 82 MG/DL HDL CHOLESTEROL (test code = 2220) 50 MG/DL CALC LDL CHOL (test code = 2237) 114 MG/DL RISK RATIO LDL/HDL (test cod e = 2238) 2.28 RATIO Dwayne MyersHEMOGLOBIN [id number] 00:00:00* Test Item Value Reference Range Interpretation Comme nts HEMOGLOBIN A1c (test code = 12791) 6.4 % Dwayne MyersC-ARM<1 HR W IMAGES*WW*2022-08-17 13:28:04 [facility] : 1970 Sex: FFLUOROSCOPYCLINICAL HISTORY: Surgical procedure Comments: Intraoperative fluoroscopy services were provided. A radiologist was not present for the procedure. Selected images demonstrate bilateral needle placement in the lower lumbar spine. Total fluoroscopy time: 3.8 seconds. Image count: 2IMPRESSION: Fluoroscopyservices provided. Please see separate operative report for detailed findings.Location: [id number] signed by: Dane Ann MD 08/17/2022 1:28 PM [facility] [id number] URINE MONOCLONAL *WW*2022-08-17 13:05:00* Test Item Value Reference Range Interpretation Comme nts PREG UR (test code = PGU) NEGATIVE NEGATIVE [id number] 20:14:57* Test Item Value Reference Range Interpretation Comme nts MAGNESIUM (test code = 8858702035) 1.7 mg/dL 1.7-2.4 Lab Interpretation (test cod e = 81661-8) [facility]2022-07-26 18:53:16* Test Item Value Reference Range Interpretation Comme nts Height (test code = 6456248743) in Weight (test code = 5361521100) lbs Systolic BP (test code = 5215614341) mmHg Diastolic BP (test code = 9370814195) mmHg Heart Rate (test code = 1574087287) bpm BSA (test code = 0248961974) 2.00 m2 Radiology Study observation (narrative) (test code = 72282-7) LUCILLE (test code = LUCILLE) ?Left?Ventricle: Left [...] A limited echocardiogram was performed using 2D. [facility] [id number] 03:58:31* Test Item Value Reference Range Interpretation Comme nts NT-proBNP (test code = 3222196550) 580 pg/mL See_Comment H [Automated message] The system which generated this result transmitted reference range: <=125. The reference range was not used to interpret this result as normal/abnormal. LUCILLE (test code = LUCILLE) Biotin has been reported to cause a negative bias, interpret results relative to patient's use of biotin. Lab Interpretation (test code = 10731-7) Abnormal [facility]anoTROP[facility] [id number] 03:21:06* Test Item Value Reference Range Interpretation Comments TROPONIN I (test code = 1112732390) 0.013 ng/mL See_Comment [Automated message] The system [...] of biotin. Lab Interpretation (test code = 98377-8) [facility]PREG[facility]NC[facility] TEST, [id number] 03:20:56* Test Item Value Reference Range Interpretation Comme nts PREG SERUM (test code = 9412420825) Negative LUCILLE (test code = LUCILLE) Less than 10 IU/L. ?If low titer or ectopic is suspected, resubmit specimen in 48-72 hours. [facility]. METABOLIC PANEL (21752)2022-07-26 03:09:22* Test Item Value Reference Range Interpretation Comme nts NA (test code = 9868848325) 137 mmol/L 135-145 K (test code = 4404785879) 4.5 mmol/L 3.5-5.0 CL (test code = 4908194524) 106 mmol/L 98-108 CO2 TOTAL (test code = 8976531924) 21 mmol/L 23-31 L AGAP (test code = 5667359445) 2-16 BUN (test code = 9028517587) 19 mg/dL 7-23 GLUCOSE (test code = 0404137399) 154 mg/dL 70-110 H CREATININE (test code = 8867914647) 0.97 mg/dL 0.50-1.04 TOTAL BILI (test code = 8734063659) 0.3 mg/dL 0.1-1.1 CALCIUM (test code = 9801098256) 9.6 mg/dL 8.6-10.6 T PROTEIN (test code = 6701134983) 6.8 g/dL 6.3-8.2 ALBUMIN (test code = 6880645861) 4.1 g/dL 3.5-5.0 ALK PHOS (test code = 8571517375) 144 U/L 34-122 H ALTv (test code = 1742-6) 41 U/L 5-35 H AST(SGOT) (test code = 0957371129) 24 U/L 13-40 eGFR (test code = 0606240116) mL/min/1.73m2 LUCILLE (test code = LUCILLE) Association [...] imaging tests). Lab Interpretation (test code = 02064-6) Abnormal [facility]anoD-[id number] 03:06:05* Test Item Value Reference Range Interpretation Comments D-DIMER (test code = 7504514026) See_Comment H [Automated message] The system which [...] a diagnosis. Lab Interpretation (test code = 41143-7) Abnormal [facility] WITH [id number] 02:34:21* Test Item Value Reference Range Interpretation Comme nts WBC (test code = 6690-2) See_Comment H [Automated FUJIAN HAIYUAN] The system which generated this result transmitted reference range: 4.30 - 11.10 10*3/?L. The reference range was not used to interpret this result as normal/abnormal. RBC (test code = 789-8) See_Comment [Automated FUJIAN HAIYUAN] The system which generated this result transmitted [...] 32.2 g/dL 31.6-35.1 RDW-SD (test code = 58846-8) 48.4 fL 39.0-49.9 RDW-CV (test code = 788-0) 16.6 % 12.0-15.5 H PLT (test code = 777-3) See_Comment [Automated messa ge] The system which generated this result transmitted reference range: 166 - 358 10*3/?L. The reference range was not used to interpret this result as normal/abnormal. MPV (test code = 09099-0) 10.4 fL 9.5-12.9 NRBC/100 WBC (test code = 7954052959) See_Comment [Automated [employer] ssage] The system which generated this result transmitted reference range: 0.0 - 10.0 /100 WBCs. The reference range was not used to interpret this result as normal/abnormal. NRBC x10^3 (test code = 3105336776) See_Comment [Automated messa ge] The system which generated this result transmitted reference range: 10*3/?L. The reference range was not used to interpret this result as normal/abnormal. GRAN MAT (NEUT) % (test code = 770-8) 85.4 % IMM GRAN % (test code = 9908877671) 2.00 % LYMPH % (test code = 736-9) 9.9 % MONO % (test code = 5905-5) 1.9 % EOS % (test code = 713-8) 0.3 % BASO % (test code = 706-2) 0.5 % GRAN MAT x10^3(ANC) (test code = 8959720404) 9.84 10*3/uL 1.88-7.09 H IMM GRAN x10^3 (test code = 7975650782) 0.23 10*3/uL 0.00-0.06 H LYMPH x10^3 (test code = 731-0) 1.14 10*3/uL 1.32-3.29 L MONO x10^3 (test code = 742-7) 0.22 10*3/uL 0.33-0.92 L EOS x10^3 (test code = 711-2) 0.03 10*3/uL 0.03-0.39 BASO x10^3 (test code = 704-7) 0.06 10*3/uL 0.01-0.07 Lab Interpretation (test code = 07790-0) [facility]normal [facility]POCT [id number] 02:25:00* Test Item Value Reference Range Interpretation Comme nts POCT PREG (test code = 1605) Negative On board controls acceptable with C Line (test code = 3574) Present POCT PREG LOT # (test code = 3575) [id number] POCT PREG TEST DATE ( test code = 3576) 12/02/2023 Lab Interpretation (test cod e = 28906-0) Normal [facility]PREG[facility]NC[facility] URINE MONOCLONAL *WW*2022-07-20 14:10:00* Test Item Value Reference Range Interpretation Comme nts PREG UR (test code = PGU) NEGATIVE NEGATIVE Troponin [id number] 11:14:56* Test Item Value Reference Range Interpretation Comments TROPONIN I (test code = 3045022953) 0.035 ng/mL See_Comment H Hemolyzed specimen [Automated [...] of biotin. Lab Interpretation (test code = 30642-7) Abnormal [facility]anoDIRECT STREP GROUP [id number] 10:18:00* Test Item Value Reference Range Interpretation Comme nts Culture Observations (test code = COB1) NO BETA HEMOLYTIC STREPTOCOCCUS ISOLATED Direct Exam (test code = DE3) NEGATIVE FOR STREP A ANTIGEN BLOOD [id number] 07:35:00* Test Item Value Reference Range Interpretation Comments Culture Observations (test code = COB1) POSITIVE BLOOD CULTURE Culture Observations (test code = COB2) 1 OF 4 BOTTLES Isolate 1 (test code = ISO1) Coagulase negative staphylococcus POSSIBLE CONTAMINANTIF SUSCEPTIBILITY NEEDED, PLEASE NOTIFY MICRO WITHIN [address] CHEST W/O [id number] 21:52:03 [facility] : 1970 Sex: FEXAMINATION:CTCHEST W/O CONTRASTCLINICAL INDICATION:Female, 51 years old with Acute infectious disease; DyspneaTECHNIQUE: Axial non-contrast contiguous images were obtained through the chest followed by coronal and sagittal multiplanar reformations.One or more of the following dose reduction techniques were used: Automated exposure control, adjustment of the mA and/or kV according to patient size, and/or iterat lolyd reconstruction. COMPARISON: NoneFINDINGS:Chest:Medical Devices: None.Lymph Nodes: There [...] Fidencio Thurston MD 06/23/2022 9:52 PM CDT [id number] 21:26:00* Test Item Value Reference Range [facility]ation [facility] (test code = PCT) 0.13 ng/mL 0.00-0.24 PROCALCITONIN REF (test code = PCTH) PROCALCITONIN REFERENCE RANGE < 0.25 ng/mL suggests viral infection on day of admission 0.25-0.5 ng/mL young zone >0.5 ng/mL is highly suggestive of bacterial infection BRAIN NATRIURETIC [id number] 21:04:00* Test Item Value Reference Range Interpretation [facility] BNP (test code = A74) 24 pg/mL See_Comment [Automated [employer] ge] The system which generated this result transmitted reference range: <=100. The reference range was not used to interpret this result as normal/abnormal. DIRECT INFLUENZA A AND B [id number] 21:00:00* Test Item Value Reference Range Interpretation Comme [facility] Direct Exam (test code = DE3) PRESUMPTIVE NEGATIVE FOR THE PRESENCE OF INFLUENZA ANTIGEN SARS-CoV (RAPID ANTIGEN)2022-06-23 20:49:00* Test Item Value Reference Range Interpretation Comme [facility] SARS-CoV (ANTIGEN) (test code = COVAG) NEGATIVE NEGATIVE COVID AG (test code = COVAGC) This test has been marketed under the FDA Emergency Use Authorization (EUA) to meet challenges of the COVID-19 pandemic. The validation standards normally enforced by the FDA and the [employer] (CAP) are more stringent than those required for this test. Therefore, the result should be interpreted with caution and close attention to other clinical and epidemiological data COMPREHENSIVE METABOLIC [id number] 20:46:00* Test Item Value Reference Range Interpretation [...] code = 31A) 68 IU/L 10-49 H [id number] 20:46:00* Test Item Value Reference Range Interpretation Comme nts MAGNESIUM (test code = 48A) 2.1 mg/dL 1.6-2.6 TROPONIN [id number] 20:46:00* Test Item Value Reference Range Interpretation Comme nts TROPONIN I (test code = A84) 8.36 pg/mL 0.00-45.20 CBC WITH [id number] 20:44:00* Test Item Value Reference Range Interpretation [...] MICRO) 1+ NONE A PRO TIME AND [id number] 20:43:00* Test Item Value Reference Range Interpretation [...] or LMW Heparin. Order Code is ANTI-XA [id number] 20:43:00* Test Item Value Reference Range Interpretation Comme nts D-DIMER (test code = DDI) 286 ng/mL D-DU 0-234 H D-DIMER COMMENT (test code = DDCOM) *Level to rule out DVT or PE: <235 ng/mL D-DU* SERUM [id number] 20:40:00* Test Item Value Reference Range Interpretation Comme nts PREG SRM (test code = PGS) NEGATIVE NEGATIVE LACTIC [id number] 20:17:00* Test Item Value Reference Range Interpretation Comme nts LACTIC ACD (test code = LA) 0.9 mmol/L 0.4-2.0 XR CHEST 1 VIEW [id number] 20:05:47 [facility] : 1970 Sex: FLocation code: N0Krgqe 1 viewIndication: Dyspnea.Comparison: 06/21/2022Findings:The heart and mediastinum are not remarkable.Costophrenic angles are clear.Elevation of the right hemidiaphragm and small right basilar atelectasis.ACDF lower cervical spineImpression:1. No change. Elevation the right hemidiaphragm and small right basilar atelectasisElectronically signed by: Bucky Keith MD 06/23/2022 8:05 PM CDT AUJXM *WW*2022-06-22 05:27:00* Test Item Value Reference Range [...] H CT CHEST W/ CONTRAST *WW*2022-06-21 22:47:01 [facility] : 1970 Sex: FEXAMINATION:CTCHEST W/ [...] code = A49) 3.4 ng/mL See_Comment [Automated [employer]gl[employer]] The system which generated this result transmitted [...] IU/L 34-145 H AMYLASE AND LIPASE *WW*2022-06-21 21:50:00* Test Item Value Reference Range [...] 88 IU/L 10-49 H URINALYSIS WITH MICRO 2022-06-21 20:59:00* Test Item Value Reference Range Interpretation [...] = USPERM) /HPF NONE CBC WITH MORPHOLOGY 2022-06-21 20:56:00* Test Item Value Reference Range Interpretation [...] the FDA and the [employer] (CAP) are more stringent than those required for this test. Therefore, the result should be interpreted with caution and close attention to other clinical and epidemiological data DIRECT INFLUENZA A AND B [id number] 20:50:00* Test Item Value Reference Range Interpretation Comme nts Direct Exam (test code = DE3) PRESUMPTIVE NEGATIVE FOR THE PRESENCE OF INFLUENZA ANTIGEN XR CHEST 1 VIEW PORTABLE *WW*2022-06-21 20:39:36 [facility] : 1970 Sex: FEXAMINATION:XRCHEST 1 [...] Fidencio Thurston MD 06/21/2022 8:39 PM CDT [id number] NATRIURETIC PEPTIDE *WW* 2022-06-21 20:38:00* Test Item Value Reference Range Interpretation Comme nts BNP (test code = A74) 22 pg/mL See_Comment [Automated [employer] ge] The system which generated this result transmitted reference range: <=100. The reference range was not used to interpret this result as normal/abnormal. SERUM MONOCLONAL *WW*2022-06-21 20:27:00* Test Item Value Reference Range Interpretation Comme nts PREG SRM (test code = PGS) NEGATIVE NEGATIVE C-ARM<1 HR W IMAGES*WW*2022-06-15 16:54:53 [facility] : 1970 Sex: FFluoroscopyLocation Code: [id number] HISTORY: Surgical procedureComments: Fluoroscopy was provided during [...] NEGATIVE NEGATIVE C-ARM<1 HR W IMAGES*WW*2022-05-12 08:26:58 [facility] : 1970 Sex: FClinical history: [...] Alexey Ott MD 05/12/2022 8:26 AM CDT [id number] URINE MONOCLONAL *WW*2022-05-11 12:51:00* Test Item Value Reference Range Interpretation Comme nts PREG UR (test code = PGU) NEGATIVE NEGATIVE C-ARM<1 HR W IMAGES*WW*2022-04-06 16:03:45 [facility] : 1970 Sex: FFluoroscopyLocation Code: [id number] HISTORY: Neck painComments: Fluoroscopy was provided during bilateral medial branch block. Approximately fluoroscopy time was 5.0 seconds. 2 fluoroscopic spot images were taken.IMPRESSION: Fluoroscopy services provided. Please see operative report for full details.Electronically signed by: Iglesia Garvey MD 04/06/2022 4:03 PM CDT [id number] URINE MONOCLONAL *WW*2022-04-06 12:39:00* Test Item Value Reference Range Interpretation Comme nts PREG UR (test code = PGU) NEGATIVE NEGATIVE Basic Metabolic Panel (NA, K, CL, CO2, GLUCOSE, BUN, CREATININE, CA)2022-02-26 09:48:31* Test Item Value Reference Range Interpretation Comme nts NA (test code = 5526035786) 143 mmol/L 135-145 K (test code = 4343609569) 3.5 mmol/L 3.5-5.0 CL (test code = 2338181892) 114 mmol/L 98-108 H CO2 TOTAL (test code = 9568463123) 24 mmol/L 23-31 AGAP (test code = 0173922962) 2-16 BUN (test code = 0762554331) 9 mg/dL 7-23 GLUCOSE (test code = 4881466597) 96 mg/dL 70-110 CREATININE (test code = 9177268895) 0.92 mg/dL 0.50-1.04 CALCIUM (test code = 0768572834) 8.1 mg/dL 8.6-10.6 L eGFR (test code = 7890874112) mL/min/1.73m2 LUCILLE (test code = LUCILLE) Association [...] imaging tests). Lab Interpretation (test code = 06034-8) Abnormal [facility] with [id number] 09:36:32* Test Item Value Reference Range Interpretation Comme nts WBC (test code = 6690-2) See_Comment [Automated FUJIAN HAIYUAN] The system which generated this result transmitted reference range: 4.30 - 11.10 10*3/?L. The reference range was not used to interpret this result as normal/abnormal. RBC (test code = 789-8) See_Comment [Automated FUJIAN HAIYUAN] The system which generated this result transmitted [...] g/dL 31.6-35.1 L RDW-SD (test code = 85193-5) 46.8 fL 39.0-49.9 RDW-CV (test code = 788-0) 16.7 % 12.0-15.5 H PLT (test code = 777-3) See_Comment [[employer]] The system which generated this result transmitted reference range: 166 - 358 10*3/?L. The reference range was not used to interpret this result as normal/abnormal. MPV (test code = 59074-5) 10.8 fL 9.5-12.9 NRBC/100 WBC (test code = 9492780598) See_Comment [Automated me ssage] The system which generated this result transmitted reference range: 0.0 - 10.0 /100 WBCs. The reference range was not used to interpret this result as normal/abnormal. NRBC x10^3 (test code = 9125375273) <0.01 See_Comment [Automated messa ge] The system which generated this result transmitted reference range: 10*3/?L. The reference range was not used to interpret this result as normal/abnormal. GRAN MAT (NEUT) % (test code = 770-8) 54.4 % IMM GRAN % (test code = 0848994535) 0.20 % LYMPH % (test code = 736-9) 31.5 % MONO % (test code = 5905-5) 8.7 % EOS % (test code = 713-8) 3.2 % BASO % (test code = 706-2) 2.0 % GRAN MAT x10^3(ANC) (test code = 9591374800) 2.69 10*3/uL 1.88-7.09 IMM GRAN x10^3 (test code = 1839120228) <0.03 0.00-0.06 LYMPH x10^3 (test code = 731-0) 1.56 10*3/uL 1.32-3.29 MONO x10^3 (test code = 742-7) 0.43 10*3/uL 0.33-0.92 EOS x10^3 (test code = 711-2) 0.16 10*3/uL 0.03-0.39 BASO x10^3 (test code = 704-7) 0.10 10*3/uL 0.01-0.07 H Lab Interpretation (test code = 51304-2) Abnormal [facility] [id number] 04:00:15* Test Item Value Reference Range Interpretation Comments TROPONIN I (test code = 6851395705) 0.004 ng/mL See_Comment [Automated message] The system [...] of biotin. Lab Interpretation (test code = 48064-6) [facility] [id number] 04:00:15* Test Item Value Reference Range Interpretation Comme nts NT-proBNP (test code = 2605496143) 42 pg/mL See_Comment [Automated message] The system which generated this result transmitted reference range: <=125. The reference range was not used to interpret this result as normal/abnormal. LUCILLE (test code = LUCILLE) Biotin has been reported to cause a negative bias, interpret results relative to patient's use of biotin. Lab Interpretation (test code = 66573-9) Normal [facility] PlanoCOMP. METABOLIC PANEL (37105)2022-02-26 03:48:34* Test Item Value Reference Range Interpretation Comme nts NA (test code = 8949921719) 142 mmol/L 135-145 K (test code = 4595773271) 3.6 mmol/L 3.5-5.0 Slight hemolysis CL (test code = 4631683443) 109 mmol/L 98-108 H CO2 TOTAL (test code = 5509484560) 26 mmol/L 23-31 AGAP (test code = 6849323671) 2-16 BUN (test code = 4805891594) 10 mg/dL 7-23 Slight hemolysis GLUCOSE (test code = 0069213409) 84 mg/dL 70-110 CREATININE (test code = 1242543391) 0.99 mg/dL 0.50-1.04 TOTAL BILI (test code = 5279384902) 0.4 mg/dL 0.1-1.1 CALCIUM (test code = 6404385932) 8.9 mg/dL 8.6-10.6 T PROTEIN (test code = 3937668685) 6.5 g/dL 6.3-8.2 ALBUMIN (test code = 2551761148) 4.0 g/dL 3.5-5.0 ALK PHOS (test code = 7180972431) 71 U/L 34-122 Slight hemolysis ALTv (test code = 1742-6) 18 U/L 5-35 AST(SGOT) (test code = 2050687540) 25 U/L 13-40 Slight hemolysis eGFR (test code = 3446399764) mL/min/1.73m2 LUCILLE (test code = LUCILLE) Association [...] imaging tests). Lab Interpretation (test code = 59104-5) [facility]normal [facility]anoLIPASE2022-06-26 03:48:34* Test Item Value Reference Range Interpretation Comme nts LIPASE (test code = 5113140813) 166 U/L 0-220 Lab Interpretation (test cod e = 79936-1) Normal [facility] WITH [id number] 03:34:33* Test Item Value Reference Range Interpretation [...] g/dL 31.6-35.1 L RDW-SD (test code = 52371-8) 47.2 fL 39.0-49.9 RDW-CV (test code = 788-0) 16.8 % 12.0-15.5 H PLT (test code = 777-3) See_Comment [Automated messa ge] The system which generated this result transmitted reference range: 166 - 358 10*3/?L. The reference range was not used to interpret this result as normal/abnormal. MPV (test code = 83501-9) 10.3 fL 9.5-12.9 NRBC/100 WBC (test code = 1831100192) See_Comment [Automated [employer] ssage] The system which generated this result transmitted reference range: 0.0 - 10.0 /100 WBCs. The reference range was not used to interpret this result as normal/abnormal. NRBC x10^3 (test code = 6420320841) <0.01 See_Comment [Automated messa ge] The system which generated this result transmitted reference range: 10*3/?L. The reference range was not used to interpret this result as normal/abnormal. GRAN MAT (NEUT) % (test code = 770-8) 51.0 % IMM GRAN % (test code = 3208058437) 0.20 % LYMPH % (test code = 736-9) 31.6 % MONO % (test code = 5905-5) 10.7 % EOS % (test code = 713-8) 4.3 % BASO % (test code = 706-2) 2.2 % GRAN MAT x10^3(ANC) (test code = 7668502121) 2.59 10*3/uL 1.88-7.09 IMM GRAN x10^3 (test code = 5839997806) <0.03 0.00-0.06 LYMPH x10^3 (test code = 731-0) 1.60 10*3/uL 1.32-3.29 MONO x10^3 (test code = 742-7) 0.54 10*3/uL 0.33-0.92 EOS x10^3 (test code = 711-2) 0.22 10*3/uL 0.03-0.39 BASO x10^3 (test code = 704-7) 0.11 10*3/uL 0.01-0.07 H Lab Interpretation (test code = 40372-8) Abnormal [facility]anoMARVAFORMERLY [facility]THU [id number] 06:03:26* Test Item Value Reference Range Interpretation Comments TROPONIN I (test code = 1236857024) 0.003 ng/mL See_Comment [Automated message] The system [...] of biotin. Lab Interpretation (test code = 82051-0) [facility]anoTROPONIN [id number] 03:56:22* Test Item Value Reference Range Interpretation Comments TROPONIN I (test code = 3119120518) 0.003 ng/mL See_Comment [Automated message] The system [...] of biotin. Lab Interpretation (test code = 08172-0) Normal [facility]anoN-[facility]MINAL [id number] 03:53:00* Test Item Value Reference Range Interpretation Comme nts NT-proBNP (test code = 2575892270) 143 pg/mL See_Comment H [Automated message] The system which generated this result transmitted reference range: <=125. The reference range was not used to interpret this result as normal/abnormal. LUCILLE (test code = LUCILLE) Biotin has been reported to cause a negative bias, interpret results relative to patient's use of biotin. Lab Interpretation (test code = 38789-6) [facility]normal [facility]anoCOMP. METABOLIC PANEL (79343)2022-02-23 03:45:59* Test Item Value Reference Range Interpretation Comme nts NA (test code = 0707945303) 140 mmol/L 135-145 K (test code = 9503979134) 4.0 mmol/L 3.5-5.0 CL (test code = 7930227959) 110 mmol/L 98-108 H CO2 TOTAL (test code = 7391364437) 17 mmol/L 23-31 L AGAP (test code = 7580868097) 2-16 BUN (test code = 0169253834) 14 mg/dL 7-23 GLUCOSE (test code = 5223487016) 105 mg/dL 70-110 CREATININE (test code = 4506771585) 1.03 mg/dL 0.50-1.04 TOTAL BILI (test code = 8077352789) 0.3 mg/dL 0.1-1.1 CALCIUM (test code = 6647593840) 8.9 mg/dL 8.6-10.6 T PROTEIN (test code = 4985151724) 6.1 g/dL 6.3-8.2 L ALBUMIN (test code = 8168543291) 3.8 g/dL 3.5-5.0 ALK PHOS (test code = 0427404271) 91 U/L 34-122 ALTv (test code = 1742-6) 19 U/L 5-35 AST(SGOT) (test code = 8369450114) 21 U/L 13-40 eGFR (test code = 6653149523) mL/min/1.73m2 LUCILLE (test code = LUCILLE) Association [...] imaging tests). Lab Interpretation (test code = 26353-5) Abnormal [facility] WITH [id number] 03:23:19* Test Item Value Reference Range Interpretation Comme nts WBC (test code = 6690-2) See_Comment [Automated [employer] ge] The system which generated this result transmitted reference range: 4.30 - 11.10 10*3/?L. The reference range was not used to interpret this result as normal/abnormal. RBC (test code = 789-8) See_Comment [Automated [employer] ge] The system which generated this result [...] g/dL 31.6-35.1 L RDW-SD (test code = 20673-7) 45.7 fL 39.0-49.9 RDW-CV (test code = 788-0) 16.6 % 12.0-15.5 H PLT (test code = 777-3) See_Comment [Automated [employer] ge] The system which generated this result transmitted reference range: 166 - 358 10*3/?L. The reference range was not used to interpret this result as normal/abnormal. MPV (test code = 10852-1) 10.9 fL 9.5-12.9 NRBC/100 WBC (test code = 7792749765) See_Comment [Automated [employer] ssage] The system which generated this result transmitted reference range: 0.0 - 10.0 /100 WBCs. The reference range was not used to interpret this result as normal/abnormal. NRBC x10^3 (test code = 3194616177) <0.01 See_Comment [Automated messa ge] The system which generated this result transmitted reference range: 10*3/?L. The reference range was not used to interpret this result as normal/abnormal. GRAN MAT (NEUT) % (test code = 770-8) 53.8 % IMM GRAN % (test code = 0539803884) 0.20 % LYMPH % (test code = 736-9) 34.0 % MONO % (test code = 5905-5) 7.9 % EOS % (test code = 713-8) 2.6 % BASO % (test code = 706-2) 1.5 % GRAN MAT x10^3(ANC) (test code = 2138831136) 3.25 10*3/uL 1.88-7.09 IMM GRAN x10^3 (test code = 0011612831) <0.03 0.00-0.06 LYMPH x10^3 (test code = 731-0) 2.06 10*3/uL 1.32-3.29 MONO x10^3 (test code = 742-7) 0.48 10*3/uL 0.33-0.92 EOS x10^3 (test code = 711-2) 0.16 10*3/uL 0.03-0.39 BASO x10^3 (test code = 704-7) 0.09 10*3/uL 0.01-0.07 H Lab Interpretation (test code = 76384-7) Abnormal [facility], THIRD [id number] 09:21:37* Test Item Value Reference Range Interpretation Comme nts TSH, THIRD GENERATION (test code = 2821) TEST NOT PERFORMED UIU/ML 0.400-4.100 TESTING CANNOT BE PERFORMED DUE TO AN INTERFERING SUBSTANCE. CHARGES DELETED. [id number] 09:21:37* Test Item Value Reference Range Interpretation [...] . . . . . NG/ML 58.70-214.00 [id number] 09:21:37* Test Item Value Reference Range Interpretation Comme nts ESTRADIOL (test code = 2505) TEST NOT PERFORMED PG/ML SEE BELOW TESTING CANNOT BE PERFORMED DUE TO AN INTERFERING SUBSTANCE. CHARGES DELETED. UNLESS OTHERWISE INDICATED, ALL TESTING PERFORMED [facility] [employer] [address] [place] [address] STORAGE MANAGER: SADIQ VANEGAS M.D. CLIA NUMBER [id number] [facility] [place]. [id number] COMPREHENSIVE METABOLIC [id number] 09:21:22* Test Item Value Reference Range Interpretation Comme nts GLUCOSE (test code = 2217) TEST NOT PERFORMED MG/DL 70-99 TESTING CANNOT BE PERFORMED DUE TO AN INTERFERING SUBSTANCE. CHARGES DELETED. BUN (test code = 2208) TEST NOT PERFORMED MG/DL 6-20 CREATININE (test code = 2214) TEST NOT PERFORMED MG/DL 0.60-1.30 eGFR (2020 CKD-EPI) (test code = 33982) TEST NOT PERFORMED ML/MIN/1.73 >60 CALC BUN/CREAT (test code = 2235) TEST NOT PERFORMED RATIO 6-28 SODIUM (test code = 2231) TEST NOT PERFORMED MEQ/L 133-146 POTASSIUM (test code = 2228) TEST NOT PERFORMED MEQ/L 3.5-5.4 CHLORIDE (test code = 2215) TEST NOT PERFORMED MEQ/L 95-107 CARBON DIOXIDE (test code = 2206) TEST NOT PERFORMED MEQ/L 19-31 CALCIUM (test code = 2209) TEST NOT PERFORMED MG/DL 8.5-10.5 PROTEIN, TOTAL (test code = 2229) TEST NOT PERFORMED G/DL 6.1-8.3 ALBUMIN (test code = 220) TEST NOT PERFORMED G/DL 3.5-5.2 CALC GLOBULIN (test code = 2240) TEST NOT PERFORMED G/DL 1.9-3.7 CALC A/G RATIO (test code = 223) TEST NOT PERFORMED RATIO 1.0-2.6 BILIRUBIN, TOTAL (test code = 2207) TEST NOT PERFORMED MG/DL See_Comment [Automated message] The system which generated this result transmitted reference range: <=1.2. The reference range was not used to interpret this result as normal/abnormal. ALKALINE PHOSPHATASE (test code = 4) TEST NOT PERFORMED U/L 40-130 AST (test code = 221) TEST NOT PERFORMED U/L 9-40 ALT (test code = 221) TEST NOT PERFORMED U/L 5-40 [id number] 00:00:00* Test Item Value Reference Range Interpretation Comme nts TSH, THIRD GENERATION (test code = 2821) TEST NOT PERFORMED UIU/ML COMPREHENSIVE METABOLIC [id number] 00:00:00* Test Item Value Reference Range Interpretation Comme nts GLUCOSE (test code = 2217) TEST NOT PERFORMED MG/DL BUN (test code = 8) TEST NOT PERFORME D MG/DL CREATININE (test code = 2214) TEST NOT PERFORMED MG/DL eGFR (2020 CKD-EPI) (test code = 93127) TEST NOT PERFORMED ML/MIN/1.73 CALC BUN/CREAT (test [...] PERFORMED MG/DL PROTEIN, TOTAL (test code = 222) TEST NOT PERFORMED G/DL ALBUMIN (test code = 220) TEST NOT PERFORMED G/DL CALC GLOBULIN (test code = 2240) TEST NOT PERFORMED G/DL CALC A/G RATIO (test code = 2234) TEST NOT PERFORMED RATIO BILIRUBIN, TOTAL (test code = 2207) TEST NOT PERFORMED MG/DL ALKALINE PHOSPHATASE (test code = 4) TEST NOT PERFORMED U/L AST (test code = 2218) TEST NOT PERFORME D U/L ALT (test code = 2219) TEST NOT PERFORME D U/L [id number] 00:00:00* Test Item Value Reference Range Interpretation Comme nts PROGESTERONE (test code = 2790) TEST NOT PERFORMED NG/ML [id number] 00:00:00* Test Item Value Reference Range Interpretation Comme nts ESTRADIOL (test code = 2505) TEST NOT PERFORMED PG/ML [id number] 00:00:00* Test Item Value Reference Range Interpretation Comme nts TSH, THIRD GENERATION (test code = 2821) TEST NOT PERFORMED UIU/ML COMPREHENSIVE METABOLIC [id number] 00:00:00* Test Item Value Reference Range Interpretation Comme nts GLUCOSE (test code = 2217) TEST NOT PERFORMED MG/DL BUN (test code = 2208) TEST NOT PERFORME D MG/DL CREATININE (test code = 2214) TEST NOT PERFORMED MG/DL eGFR (2020 CKD-EPI) (test code = 76511) TEST NOT PERFORMED ML/MIN/1.73 CALC BUN/CREAT (test [...] = 2219) TEST NOT PERFORME D U/L [id number] 00:00:00* Test Item Value Reference Range Interpretation Comme nts PROGESTERONE (test code = 2790) TEST NOT PERFORMED NG/ML [id number] 00:00:00* Test Item Value Reference Range Interpretation Comme nts ESTRADIOL (test code = 2505) TEST NOT PERFORMED PG/ML [id number] 00:00:00* Test Item Value Reference Range Interpretation Comme nts TSH, THIRD GENERATION (test code = 2821) TEST NOT PERFORMED UIU/ML [id number] 00:00:00* Test Item Value Reference Range Interpretation Comme nts TSH, THIRD GENERATION (test code = 2821) TEST NOT PERFORMED UIU/ML COMPREHENSIVE METABOLIC [id number] 00:00:00* Test Item Value Reference Range Interpretation Comme nts GLUCOSE (test code = 2217) TEST NOT PERFORMED MG/DL BUN (test code = 2208) TEST NOT PERFORME D MG/DL CREATININE (test code = 2214) TEST NOT PERFORMED MG/DL eGFR (2020 CKD-EPI) (test code = 01152) TEST NOT PERFORMED ML/MIN/1.73 CALC BUN/CREAT (test [...] TEST NOT PERFORME D U/L COMPREHENSIVE METABOLIC [id number] 00:00:00* Test Item Value Reference Range Interpretation Comme nts GLUCOSE (test code = 2217) TEST NOT PERFORMED MG/DL BUN (test code = 2208) TEST NOT PERFORME D MG/DL CREATININE (test code = 2214) TEST NOT PERFORMED MG/DL eGFR (2020 CKD-EPI) (test code = 12347) TEST NOT PERFORMED ML/MIN/1.73 CALC BUN/CREAT (test [...] NOT PERFORMED G/DL ALBUMIN (test code = 220) TEST NOT PERFORMED G/DL CALC GLOBULIN (test code = 2240) TEST NOT PERFORMED G/DL CALC A/G RATIO (test code = 2234) TEST NOT PERFORMED RATIO BILIRUBIN, TOTAL (test code = 2206) TEST NOT PERFORMED MG/DL ALKALINE PHOSPHATASE (test code = 220) TEST NOT PERFORMED U/L AST (test code = 2217) TEST NOT PERFORME D U/L ALT (test code = 2218) TEST NOT PERFORME D U/L [id number] 00:00:00* Test Item Value Reference Range Interpretation Comme nts PROGESTERONE (test code = 2790) TEST NOT PERFORMED NG/ML [id number] 00:00:00* Test Item Value Reference Range Interpretation Comme nts ESTRADIOL (test code = 2505) TEST NOT PERFORMED PG/ML [id number] 00:00:00* Test Item Value Reference Range Interpretation Comme nts PROGESTERONE (test code = 2790) TEST NOT PERFORMED NG/ML [id number] 00:00:00* Test Item Value Reference Range Interpretation Comme nts ESTRADIOL (test code = 2505) TEST NOT PERFORMED PG/ML [id number] 00:00:00* Test Item Value Reference Range Interpretation Comme nts TSH, THIRD GENERATION (test code = 2821) TEST NOT PERFORMED UIU/ML Dwayne F AustinCOMPREHENSIVE METABOLIC [id number] 00:00:00* Test Item Value Reference Range Interpretation Comme nts GLUCOSE (test code = 2217) TEST NOT PERFORMED MG/DL BUN (test code = 2208) TEST NOT PERFORME D MG/DL CREATININE (test code = 2214) TEST NOT PERFORMED MG/DL eGFR (2020 CKD-EPI) (test code = 08969) TEST NOT PERFORMED ML/MIN/1.73 CALC BUN/CREAT (test [...] NOT PERFORMED G/DL ALBUMIN (test code = 220) TEST NOT PERFORMED G/DL CALC GLOBULIN (test code = 2240) TEST NOT PERFORMED G/DL CALC A/G RATIO (test code = 2234) TEST NOT PERFORMED RATIO BILIRUBIN, TOTAL (test code = 2206) TEST NOT PERFORMED MG/DL ALKALINE PHOSPHATASE (test code = 4) TEST NOT PERFORMED U/L AST (test code = 2217) TEST NOT PERFORME D U/L ALT (test code = 2218) TEST NOT PERFORME D U/L Dwayne MyersQtqgpaOIUIUJLJHPRJ4202-25-26 00:00:00* Test Item Value Reference Range Interpretation Comme nts PROGESTERONE (test code = 2790) TEST NOT PERFORMED NG/ML Dwayne MyersPklpghONQPEQLLQ1259-01-75 00:00:00* Test Item Value Reference Range Interpretation Comme nts ESTRADIOL (test code = 2505) TEST NOT PERFORMED PG/ML Dwayne Bah [id number] 00:00:00* Test Item Value Reference Range Interpretation Comme nts TSH, THIRD GENERATION (test code = 2821) TEST NOT PERFORMED UIU/ML Dwayne Bah ChristiansburgCOMPREHENSIVE METABOLIC [id number] 00:00:00* Test Item Value Reference Range Interpretation Comme nts GLUCOSE (test code = 2217) TEST NOT PERFORMED MG/DL BUN (test code = 2208) TEST NOT PERFORME D MG/DL CREATININE (test code = 2214) TEST NOT PERFORMED MG/DL eGFR (2020 CKD-EPI) (test code = 16692) TEST NOT PERFORMED ML/MIN/1.73 CALC BUN/CREAT (test code = 2235) TEST NOT PERFORMED RATIO SODIUM (test code = 2231) TEST NOT PERFORMED MEQ/L POTASSIUM (test code = 2228) TEST NOT PERFORMED MEQ/L CHLORIDE (test code = 2215) TEST NOT PERFORMED MEQ/L CARBON DIOXIDE (test code = 2206) TEST NOT PERFORMED MEQ/L CALCIUM (test code = 220) TEST NOT PERFORMED MG/DL PROTEIN, TOTAL (test code = 222) TEST NOT PERFORMED G/DL ALBUMIN (test code = 220) TEST NOT PERFORMED G/DL CALC GLOBULIN (test [...] = 2219) TEST NOT PERFORME D U/L Dwayne MyersChemgnJNSPZQMZEEXN1899-14-97 00:00:00* Test Item Value Reference Range Interpretation Comme nts PROGESTERONE (test code = 2790) TEST NOT PERFORMED NG/ML Dwayne MyersPmjfzoHJWTPPIYX1227-54-67 00:00:00* Test Item Value Reference Range Interpretation Comme nts ESTRADIOL (test code = 2505) TEST NOT PERFORMED PG/ML Dwayne MyersFmumdkYFL4994-69-37 00:00:00* Test Item Value Reference Range Interpretation Comme nts TSH, THIRD GENERATION (test code = 2821) TEST NOT PERFORMED UIU/ML Dwayne MyersCOMPREHENSIVE METABOLIC [id number] 00:00:00* Test Item Value Reference Range Interpretation Comme nts GLUCOSE (test code = 2217) TEST NOT PERFORMED MG/DL BUN (test code = 2208) TEST NOT PERFORME D MG/DL CREATININE (test code = 2214) TEST NOT PERFORMED MG/DL eGFR (2020 CKD-EPI) (test code = 20411) TEST NOT PERFORMED ML/MIN/1.73 CALC BUN/CREAT (test [...] = 2219) TEST NOT PERFORME D U/L Dwayne MyersSqxtcnPYBTUIAYZQOI9621-07-83 00:00:00* Test Item Value Reference Range Interpretation Comme nts PROGESTERONE (test code = 2790) TEST NOT PERFORMED NG/ML Dwayne MyersDliqskRJYKLPWJI6902-20-83 00:00:00* Test Item Value Reference Range Interpretation Comme nts ESTRADIOL (test code = 2505) TEST NOT PERFORMED PG/ML Dwayne Bah [id number] 00:00:00* Test Item Value Reference Range Interpretation Comme nts TSH, THIRD GENERATION (test code = 2821) TEST NOT PERFORMED UIU/ML Dwayne MyersCOMPREHENSIVE METABOLIC [id number] 00:00:00* Test Item Value Reference Range Interpretation Comme nts GLUCOSE (test code = 2217) TEST NOT PERFORMED MG/DL BUN (test code = 2208) TEST NOT PERFORME D MG/DL CREATININE (test code = 2214) TEST NOT PERFORMED MG/DL eGFR (2020 CKD-EPI) (test code = 10415) TEST NOT PERFORMED ML/MIN/1.73 CALC BUN/CREAT (test [...] = 2219) TEST NOT PERFORME D U/L Dwayne MyersKnnrvuJLIDBAZNIDKL6122-03-41 00:00:00* Test Item Value Reference Range Interpretation Comme nts PROGESTERONE (test code = 2790) TEST NOT PERFORMED NG/ML Dwayne MyersBfsvupHAOMEOXOR8383-61-30 00:00:00* Test Item Value Reference Range Interpretation Comme nts ESTRADIOL (test code = 2505) TEST NOT PERFORMED PG/ML Dwayne MyersAydmocXFY9942-85-48 00:00:00* Test Item Value Reference Range Interpretation Comme nts TSH, THIRD GENERATION (test code = 2821) TEST NOT PERFORMED UIU/ML Dwayne MyersCOMPREHENSIVE METABOLIC [id number] 00:00:00* Test Item Value Reference Range Interpretation Comme nts GLUCOSE (test code = 2217) TEST NOT PERFORMED MG/DL BUN (test code = 2208) TEST NOT PERFORME D MG/DL CREATININE (test code = 2214) TEST NOT PERFORMED MG/DL eGFR (2020 CKD-EPI) (test code = 59276) TEST NOT PERFORMED ML/MIN/1.73 CALC BUN/CREAT (test [...] = 2219) TEST NOT PERFORME D U/L Dwayne MyersUwtmsiWFWZOEZNIQAB4981-50-51 00:00:00* Test Item Value Reference Range Interpretation Comme nts PROGESTERONE (test code = 2790) TEST NOT PERFORMED NG/ML Dwayne Bah KuixpuFNUJBMTQF0769-36-94 00:00:00* Test Item Value Reference Range Interpretation Comme nts ESTRADIOL (test code = 2505) TEST NOT PERFORMED PG/ML Dwayne Bah [id number] 00:00:00* Test Item Value Reference Range Interpretation Comme nts TSH, THIRD GENERATION (test code = 2821) TEST NOT PERFORMED UIU/ML Dwayne MyersCOMPREHENSIVE METABOLIC [id number] 00:00:00* Test Item Value Reference Range Interpretation Comme nts GLUCOSE (test code = 2217) TEST NOT PERFORMED MG/DL BUN (test code = 2208) TEST NOT PERFORME D MG/DL CREATININE (test code = 2214) TEST NOT PERFORMED MG/DL eGFR (2020 CKD-EPI) (test code = 05481) TEST NOT PERFORMED ML/MIN/1.73 CALC BUN/CREAT (test [...] = 2219) TEST NOT PERFORME D U/L Dawyne MyersTbqjzmJWDXXCGXGRWB5743-32-91 00:00:00* Test Item Value Reference Range Interpretation Comme nts PROGESTERONE (test code = 2790) TEST NOT PERFORMED NG/ML Dwayne MyersYguymfBFMSFZCKA1664-57-66 00:00:00* Test Item Value Reference Range Interpretation Comme nts ESTRADIOL (test code = 2505) TEST NOT PERFORMED PG/ML Dwayne Bah KqcmjoUHZ5912-80-79 00:00:00* Test Item Value Reference Range Interpretation Comme nts TSH, THIRD GENERATION (test code = 2821) TEST NOT PERFORMED UIU/ML Dwayne MyersCOMPREHENSIVE METABOLIC [id number] 00:00:00* Test Item Value Reference Range Interpretation Comme nts GLUCOSE (test code = 2217) TEST NOT PERFORMED MG/DL BUN (test code = 2208) TEST NOT PERFORME D MG/DL CREATININE (test code = 2214) TEST NOT PERFORMED MG/DL eGFR (2020 CKD-EPI) (test code = 86077) TEST NOT PERFORMED ML/MIN/1.73 CALC BUN/CREAT (test [...] = 2219) TEST NOT PERFORME D U/L Dwayne MyersNnxpwaAVYPYNUSYTGF6802-11-75 00:00:00* Test Item Value Reference Range Interpretation Comme nts PROGESTERONE (test code = 2790) TEST NOT PERFORMED NG/ML Dwayne MyersNufxloDXMTFZOWL3254-89-82 00:00:00* Test Item Value Reference Range Interpretation Comme nts ESTRADIOL (test code = 2505) TEST NOT PERFORMED PG/ML Dwayne Bah CztxsjVML2204-20-90 00:00:00* Test Item Value Reference Range Interpretation Comme nts TSH, THIRD GENERATION (test code = 2821) TEST NOT PERFORMED UIU/ML Dwayne MyersCOMPREHENSIVE METABOLIC [id number] 00:00:00* Test Item Value Reference Range Interpretation Comme nts GLUCOSE (test code = 2217) TEST NOT PERFORMED MG/DL BUN (test code = 2208) TEST NOT PERFORME D MG/DL CREATININE (test code = 2214) TEST NOT PERFORMED MG/DL eGFR (2020 CKD-EPI) (test code = 92916) TEST NOT PERFORMED ML/MIN/1.73 CALC BUN/CREAT (test [...] PERFORMED MG/DL PROTEIN, TOTAL (test code = 2228) TEST NOT PERFORMED G/DL ALBUMIN (test code = 2200) TEST NOT PERFORMED G/DL CALC GLOBULIN (test code = 2240) TEST NOT PERFORMED G/DL CALC A/G RATIO (test code = 223) TEST NOT PERFORMED RATIO BILIRUBIN, TOTAL (test code = 2206) TEST NOT PERFORMED MG/DL ALKALINE PHOSPHATASE (test code = 4) TEST NOT PERFORMED U/L AST (test code = 8) TEST NOT PERFORME D U/L ALT (test code = 2219) TEST NOT PERFORME D U/L Dwayne MyersFdobtjHGVPNPCEDYJR2363-88-42 00:00:00* Test Item Value Reference Range Interpretation Comme nts PROGESTERONE (test code = 2790) TEST NOT PERFORMED NG/ML Dwayne MyersYrxczoIJFPEYKVG2058-58-28 00:00:00* Test Item Value Reference Range Interpretation Comme nts ESTRADIOL (test code = 2505) TEST NOT PERFORMED PG/ML Dwayne MyersTROPONIN [id number] 14:05:29* Test Item Value Reference Range Interpretation Comments TROPONIN I (test code = 6479386534) <0.012 See_Comment [Automated message] The system which [...] of biotin. Lab Interpretation (test code = 78523-2) [facility]-GJD5357-25-29 14:02:07* Test Item Value Reference Range Interpretation Comme nts NT-proBNP (test code = 2788970364) 343 pg/mL See_Comment H [Automated message] The system which generated this result transmitted reference range: <=125. The reference range was not used to interpret this result as normal/abnormal. LUCILLE (test code = LUCILLE) Biotin has been reported to cause a negative bias, interpret results relative to patient's use of biotin. Lab Interpretation (test code = 38122-3) [facility]normal [facility] (85101)2022-01-29 13:53:30* Test Item Value Reference Range Interpretation Comme nts NA (test code = 6634375138) 146 mmol/L 135-145 H K (test code = 2852109329) 4.2 mmol/L 3.5-5.0 CL (test code = 7993627813) 114 mmol/L 98-108 H CO2 TOTAL (test code = 5195283801) 23 mmol/L 23-31 AGAP (test code = 6005136437) 2-16 BUN (test code = 8147574495) 14 mg/dL 7-23 GLUCOSE (test code = 9005469341) 72 mg/dL 70-110 CREATININE (test code = 4702632065) 1.08 mg/dL 0.50-1.04 H TOTAL BILI (test code = 4964728231) 0.3 mg/dL 0.1-1.1 CALCIUM (test code = 1410297770) 9.1 mg/dL 8.6-10.6 T PROTEIN (test code = 9442205330) 6.1 g/dL 6.3-8.2 L ALBUMIN (test code = 1324226864) 3.8 g/dL 3.5-5.0 ALK PHOS (test code = 1957964464) 86 U/L 34-122 ALTv (test code = 1742-6) 26 U/L 5-35 AST(SGOT) (test code = 4691645482) 28 U/L 13-40 eGFR (test code = 4672715361) mL/min/1.73m2 LUCILLE (test code = LUCILLE) Association [...] imaging tests). Lab Interpretation (test code = 62500-0) [facility] + LACTIC [id number] 13:52:59* Test Item Value Reference Range Interpretation Comme nts PH (test code = 7824489032) 7.32-7.42 PCO2 WYATT (test code = 1941136836) See_Comment [[email or web address]] The system which generated this result transmitted reference range: 41 - 51 mmHg. The reference range was not used to interpret this result as normal/abnormal. PO2 WYATT (test code = 2919527532) See_Comment L [Automated messa ge] The system which generated this result transmitted reference range: 25 - 40 mmHg. The reference range was not used to interpret this result as normal/abnormal. HCO3 WYATT (test code = 6946751870) See_Comment [Automated messa ge] The system which generated this result transmitted reference range: 24 - 28 mEq/L. The reference range was not used to interpret this result as normal/abnormal. AC VBE(BEAKER) (test code = 5151363141) mEq/L THB WYATT (test code = 9468293500) 11.4 g/dL 12.0-16.0 L %O2HB WYATT (test code = 9754332264) 21.7 % 52.0-63.0 L %COHB WYATT (test code = 6973402830) 0.3 % 0.0-1.5 %METHB WYATT (test code = 6412054780) 1.1 % 0.4-1.5 VOL%O2 WYATT (test code = 2636566116) 3.5 % 6.0-12.0 L NA (test code = 9798441965) 145 mmol/L 135-145 K+ (test code = 7129209062) 4.0 mmol/L 3.5-5.0 AC CA IONZ (test code = 3251610376) 5.00 mg/dL 4.50-5.30 GLUCOSE (test code = 1859650309) 70 mg/dL 70-110 LACTIC ACID (test code = 8840223938) 2.81 mmol/L 0.50-2.20 H Lab Interpretation (test code = 32323-1) Abnormal [facility] WITH [id number] 13:41:47* Test Item Value Reference Range Interpretation [...] g/dL 31.6-35.1 L RDW-SD (test code = 89299-1) 47.6 fL 39.0-49.9 RDW-CV (test code = 788-0) 15.9 % 12.0-15.5 H PLT (test code = 777-3) See_Comment [Automated messa ge] The system which generated this result transmitted reference range: 166 - 358 10*3/?L. The reference range was not used to interpret this result as normal/abnormal. MPV (test code = 54196-8) 10.9 fL 9.5-12.9 NRBC/100 WBC (test code = 1160639411) See_Comment [Automated [employer] ssage] The system which generated this result transmitted reference range: 0.0 - 10.0 /100 WBCs. The reference range was not used to interpret this result as normal/abnormal. NRBC x10^3 (test code = 7556629413) <0.01 See_Comment [Automated [employer]] The system which generated this result transmitted reference range: 10*3/?L. The reference range was not used to interpret this result as normal/abnormal. GRAN MAT (NEUT) % (test code = 770-8) 80.7 % IMM GRAN % (test code = 3504289516) 0.30 % LYMPH % (test code = 736-9) 12.4 % MONO % (test code = 5905-5) 4.9 % EOS % (test code = 713-8) 0.9 % BASO % (test code = 706-2) 0.8 % GRAN MAT x10^3(ANC) (test code = 8821433759) 6.92 10*3/uL 1.88-7.09 IMM GRAN x10^3 (test code = 2313614143) 0.03 10*3/uL 0.00-0.06 LYMPH x10^3 (test code = 731-0) 1.06 10*3/uL 1.32-3.29 L MONO x10^3 (test code = 742-7) 0.42 10*3/uL 0.33-0.92 EOS x10^3 (test code = 711-2) 0.08 10*3/uL 0.03-0.39 BASO x10^3 (test code = 704-7) 0.07 10*3/uL 0.01-0.07 Lab Interpretation (test code = 79153-5) Abnormal [facility] W/AUTO DIFF WITH [id number] 05:43:21* Test Item Value Reference Range Interpretation [...] = 1065) 0.0 /100 WBC'S See_Comment [Automated [employer] ge] The system which generated this result [...] 0.00-0.10 ABS NUCLEATED RBCS (test code = 60221) 0.00 K/UL 0.00-0.11 HEMOGLOBIN [id number] 05:31:32* Test Item Value Reference Range Interpretation Comme nts HEMOGLOBIN A1c (test code = 38900) 6.4 % 4.2-5.6 H HEMOGLOBIN [id number] 00:00:00* Test Item Value Reference Range Interpretation Comme nts HEMOGLOBIN A1c (test code = 38980) 6.4 % CBC W/AUTO [id number] 00:00:00* Test Item Value Reference Range Interpretation [...] ABS NUCLEATED RBCS (test cod e = 96819) 0.00 K/UL HEMOGLOBIN [id number] 00:00:00* Test Item Value Reference Range Interpretation Comme nts HEMOGLOBIN A1c (test code = 13238) 6.4 % CBC W/AUTO [id number] 00:00:00* Test Item Value Reference Range Interpretation [...] ABS NUCLEATED RBCS (test cod e = 41782) 0.00 K/UL HEMOGLOBIN [id number] 00:00:00* Test Item Value Reference Range Interpretation Comme nts HEMOGLOBIN A1c (test code = 34400) 6.4 % CBC W/AUTO [id number] 00:00:00* Test Item Value Reference Range Interpretation [...] ABS NUCLEATED RBCS (test cod e = 20958) 0.00 K/UL HEMOGLOBIN [id number] 00:00:00* Test Item Value Reference Range Interpretation Comme nts HEMOGLOBIN A1c (test code = 34703) 6.4 % CBC W/AUTO [id number] 00:00:00* Test Item Value Reference Range Interpretation [...] ABS NUCLEATED RBCS (test cod e = 37514) 0.00 K/UL HEMOGLOBIN [id number] 00:00:00* Test Item Value Reference Range Interpretation Comme nts HEMOGLOBIN A1c (test code = 54836) 6.4 % [facility] [id number] 00:00:00* Test Item Value Reference Range Interpretation [...] ABS NUCLEATED RBCS (test cod e = 65072) 0.00 K/UL Dwayne MyersHEMOGLOBIN [id number] 00:00:00* Test Item Value Reference Range Interpretation Comme nts HEMOGLOBIN A1c (test code = 99646) 6.4 % Dwayne MyersCBC W/AUTO [id number] 00:00:00* Test Item Value Reference Range Interpretation [...] ABS NUCLEATED RBCS (test cod e = 22902) 0.00 K/UL Dwayne Bah AustinHEMOGLOBIN [id number] 00:00:00* Test Item Value Reference Range Interpretation Comme nts HEMOGLOBIN A1c (test code = 52129) 6.4 % Dwayne Bah AustinCBC W/AUTO [id number] 00:00:00* Test Item Value Reference Range Interpretation [...] ABS NUCLEATED RBCS (test cod e = 26225) 0.00 K/UL Dwayne Bah AustinHEMOGLOBIN [id number] 00:00:00* Test Item Value Reference Range Interpretation Comme nts HEMOGLOBIN A1c (test code = 78865) 6.4 % Dwayne Bah AustinCBC W/AUTO [id number] 00:00:00* Test Item Value Reference Range Interpretation [...] ABS NUCLEATED RBCS (test cod e = 81464) 0.00 K/UL Dwayne MyersHEMOGLOBIN [id number] 00:00:00* Test Item Value Reference Range Interpretation Comme nts HEMOGLOBIN A1c (test code = 06112) 6.4 % Dwayne MyersCBC W/AUTO [id number] 00:00:00* Test Item Value Reference Range Interpretation [...] ABS NUCLEATED RBCS (test cod e = 33889) 0.00 K/UL Dwayne MyersHEMOGLOBIN [id number] 00:00:00* Test Item Value Reference Range Interpretation Comme nts HEMOGLOBIN A1c (test code = 36883) 6.4 % Dwayne MyersCBC W/AUTO [id number] 00:00:00* Test Item Value Reference Range Interpretation [...] ABS NUCLEATED RBCS (test cod e = 91831) 0.00 K/UL Dwayne MyersHEMOGLOBIN [id number] 00:00:00* Test Item Value Reference Range Interpretation Comme nts HEMOGLOBIN A1c (test code = 20556) 6.4 % Dwayne MyersCBC W/AUTO [id number] 00:00:00* Test Item Value Reference Range Interpretation [...] ABS NUCLEATED RBCS (test cod e = 55443) 0.00 K/UL Dwayne MyersHEMOGLOBIN [id number] 00:00:00* Test Item Value Reference Range Interpretation Comme nts HEMOGLOBIN A1c (test code = 19776) 6.4 % Dwayne MyersCBC W/AUTO [id number] 00:00:00* Test Item Value Reference Range Interpretation [...] ABS NUCLEATED RBCS (test cod e = 84002) 0.00 K/UL Dwayne MyersC-ARM<1 HR W IMAGES*WW*2022-01-05 15:46:44 [facility] : 1970 Sex: FFluoroscopyLocation Code: [id number] HISTORY: SURGICAL PROCEDURE , Back painComments: Fluoroscopy was provided during sympathetic nerve block. Approximately fluoroscopy time was 32.6 seconds. 3 images were obtained.IMPRESSION: Fluoroscopy services provided. Please see operative report for full details.Electronically signed by: Gabriele Castaneda MD 01/05/2022 3:46 PM CDT [id number] URINE MONOCLONAL *WW*2022-01-05 11:24:00* Test Item Value Reference Range Interpretation Comme nts PREG UR (test code = PGU) NEGATIVE NEGATIVE CBC WITH [id number] 12:44:09* Test Item Value Reference Range Interpretation Comme nts WBC (test code = 6690-2) See_Comment H [Automated Jellynotea Comparameglio.it] The system which generated this result transmitted reference range: 4.30 - 11.10 10*3/?L. The reference range was not used to interpret this result as normal/abnormal. RBC (test code = 789-8) See_Comment L [Automated Jellynote[employer] Comparameglio.it] The system which generated this result transmitted [...] g/dL 31.6-35.1 L RDW-SD (test code = 56824-8) 49.5 fL 39.0-49.9 RDW-CV (test code = 788-0) 15.5 % 12.0-15.5 PLT (test code = 777-3) See_Comment H [Automated messa ge] The system which generated this result transmitted reference range: 166 - 358 10*3/?L. The reference range was not used to interpret this result as normal/abnormal. MPV (test code = 97826-6) 10.3 fL 9.5-12.9 NRBC/100 WBC (test code = 3442311686) See_Comment [Automated me ssage] The system which generated this result transmitted reference range: 0.0 - 10.0 /100 WBCs. The reference range was not used to interpret this result as normal/abnormal. NRBC x10^3 (test code = 8638066482) See_Comment [Automated messa ge] The system which generated this result transmitted reference range: 10*3/?L. The reference range was not used to interpret this result as normal/abnormal. GRAN MAT (NEUT) % (test code = 770-8) 64.4 % IMM GRAN % (test code = 3696147599) 3.60 % LYMPH % (test code = 736-9) 23.5 % MONO % (test code = 5905-5) 7.3 % EOS % (test code = 713-8) 0.9 % BASO % (test code = 706-2) 0.3 % GRAN MAT x10^3(ANC) (test code = 6651953924) 7.19 10*3/uL 1.88-7.09 H IMM GRAN x10^3 (test code = 5118126431) 0.40 10*3/uL 0.00-0.06 H LYMPH x10^3 (test code = 731-0) 2.63 10*3/uL 1.32-3.29 MONO x10^3 (test code = 742-7) 0.82 10*3/uL 0.33-0.92 EOS x10^3 (test code = 711-2) 0.10 10*3/uL 0.03-0.39 BASO x10^3 (test code = 704-7) 0.03 10*3/uL 0.01-0.07 POLYCHROMASIA (test code = 95514-5) 2+ See_Comment [Automated messa ge] The system which generated this result transmitted reference range: 2+. The reference range was not used to interpret this result as normal/abnormal. GIANT PLATELETS (test code = 5908-9) Present See_Comment A [Automated messa ge] The system which generated this result transmitted reference range: (none). The reference range was not used to interpret this result as normal/abnormal. Lab Interpretation (test code = 41656-8) [facility] [id number] 10:06:53* Test Item Value Reference Range Interpretation Comme nts NT-proBNP (test code = 3684091120) 117 pg/mL See_Comment [Automated message] The system which generated this result transmitted reference range: <=125. The reference range was not used to interpret this result as normal/abnormal. LUCILLE (test code = LUCILLE) Biotin has been reported to cause a negative bias, interpret results relative to patient's use of biotin. Lab Interpretation (test code = 37456-9) [facility] METABOLIC PANEL (29014)2021-12-07 10:02:35* Test Item Value Reference Range Interpretation Comme nts NA (test code = 6410691358) 140 mmol/L 135-145 K (test code = 5895168191) 3.7 mmol/L 3.5-5.0 CL (test code = 6941356194) 104 mmol/L 98-108 CO2 TOTAL (test code = 8391475114) 31 mmol/L 23-31 AGAP (test code = 5203206711) 2-16 BUN (test code = 4949053264) 21 mg/dL 7-23 GLUCOSE (test code = 5000782631) 91 mg/dL 70-110 CREATININE (test code = 1169614699) 1.00 mg/dL 0.50-1.04 TOTAL BILI (test code = 0114847587) 0.3 mg/dL 0.1-1.1 CALCIUM (test code = 9868113912) 8.1 mg/dL 8.6-10.6 L T PROTEIN (test code = 3738702149) 5.9 g/dL 6.3-8.2 L ALBUMIN (test code = 7185390963) 3.4 g/dL 3.5-5.0 L ALK PHOS (test code = 1202904295) 87 U/L 34-122 ALTv (test code = 1742-6) 39 U/L 5-35 H AST(SGOT) (test code = 8443641772) 24 U/L 13-40 eGFR (test code = 9790696465) mL/min/1.73m2 LUCILLE (test code = LUCILLE) Association [...] imaging tests). Lab Interpretation (test code = 06748-2) [facility]2022-[facility]-06 10:02:35* Test Item Value Reference Range Interpretation Comme [facility] MAGNESIUM (test code = 6602328435) 2.2 mg/dL 1.7-2.4 Lab Interpretation (test cod e = 11122-7) Normal [facility]anoVITAMIN B12, [id number] 22:18:47* Test Item Value Reference Range Interpretation Comme nts VIT B12 (test code = 4355947715) 979 pg/mL 240-930 H LUCILLE (test code = LUCILLE) Biotin has been reported to cause a positive bias, interpret results relative to patient's use of biotin. Lab Interpretation (test code = 63333-9) [facility]normal [facility]anoPROCALCITONIN2022-04-05 21:47:27* Test Item Value Reference Range Interpretation Comme nts Procalcitonin (test code = 4756879543) 0.05 ng/mL <0.07 LUCILLE (test code = [...] lung abscess/empyema. For further information please refer to:[email or web address] Lab Interpretation (test code = 46403-3) [facility]ano[facility]IT[facility]IN D, [id number] 20:41:30* Test Item Value Reference Range Interpretation Comme nts VIT D 25OH (test code = 66304-1) <13 25-80 L LUCILLE (test code = LUCILLE) Deficiency: <20 ng/mLInsufficiency: 20-24 ng/mLOptimal: 25-80 ng/mL Lab Interpretation (test code = 60539-4) [facility]anoDIFF CONSULT [id number] 20:04:06 LEUKOCYTOSIS WITH ABSOLUTE NEUTROPHILIA AND INCREASED IMMATURE GRANULOCYTES/LEFT SHIFT, CONSISTENT WITH PATIENT'S KNOWN INFECTION. NORMOCYTIC, NORMOCHROMIC ANEMIA. MILD THROMBOCYTOSIS.[facility] [id number] 18:31:30* Test Item Value Reference Range Interpretation Comme nts FREE T3 (test code = 9148394250) 2.49 pg/mL 2.77-5.27 L Lab Interpretation (test cod e = 98667-0) [facility]normal [facility]anoC-REACTIVE [id number] 17:54:11* Test Item Value Reference Range Interpretation Comme nts CRP (test code = 7140790368) 0.2 mg/dL <0.8 Lab Interpretation (test cod e = 43791-8) Normal [facility] [id number] 13:49:44* Test Item Value Reference Range Interpretation Comme nts FREE T4 (test code = 3911463635) See_Comment L [Automated messa ge] The system which generated this result transmitted reference range: 0.78 - 2.20 ng/dL:. The reference range was not used to interpret this result as normal/abnormal. Lab Interpretation (test code = 77051-7) Abnormal [facility] WITH [id number] 12:20:38* Test Item Value Reference Range Interpretation [...] 31.8 g/dL 31.6-35.1 RDW-SD (test code = 57049-3) 48.5 fL 39.0-49.9 RDW-CV (test code = 788-0) 15.3 % 12.0-15.5 PLT (test code = 777-3) See_Comment [Automated message] The system which generated this result transmitted reference range: 166 - 358 10*3/?L. The reference range was not used to interpret this result as normal/abnormal. MPV (test code = 80068-1) 10.4 fL 9.5-12.9 NRBC/100 WBC (test code = 3019594792) See_Comment [Automated message] The system which generated this result transmitted reference range: 0.0 - 10.0 /100 WBCs. The reference range was not used to interpret this result as normal/abnormal. NRBC x10^3 (test code = 7783198316) See_Comment [Automated message] The system which generated this result transmitted reference range: 10*3/?L. The reference range was not used to interpret this result as normal/abnormal. GRAN MAT (NEUT) % (test code = 770-8) 74.0 % IMM GRAN % (test code = 0349316441) 3.20 % LYMPH % (test code = 736-9) 14.7 % MONO % (test code = 5905-5) 7.7 % EOS % (test code = 713-8) 0.1 % BASO % (test code = 706-2) 0.3 % GRAN MAT x10^3(ANC) (test code = 4593509913) 11.18 10*3/uL 1.88-7.09 H IMM GRAN x10^3 (test code = 6465613961) 0.48 10*3/uL 0.00-0.06 H LYMPH x10^3 (test code = 731-0) 2.22 10*3/uL 1.32-3.29 MONO x10^3 (test code = 742-7) 1.17 10*3/uL 0.33-0.92 H EOS x10^3 (test code = 711-2) <0.03 0.03-0.39 L BASO x10^3 (test code = 704-7) 0.04 10*3/uL 0.01-0.07 Lab Interpretation (test code = 82330-4) [facility]normal [facility]anoFERRITIN [id number] 11:45:10* Test Item Value Reference Range Interpretation Comme nts FERRITIN (test code = 3757496227) 16.1 ng/mL 11.0-264.0 LUCILLE (test code = LUCILLE) Biotin has been reported to cause a negative bias, interpret results relative to patient's use of biotin. Lab Interpretation (test code = 25427-7) Normal [facility]anoTHYROID STIMULATING [id number] 11:41:28 * Test Item Value Reference Range Interpretation Comme nts TSH (test code = 9367680310) See_Comment L [Automated messa ge] The system which generated this result transmitted reference range: 0.45 - 4.70 mIU/L. The reference range was not used to interpret this result as normal/abnormal. Lab Interpretation (test code = 40853-5) Abnormal [facility] PlanoSEDIMENTATION [id number] 11:30:34* Test Item Value Reference Range Interpretation Comme nts ESR (test code = 6688044875) See_Comment [Automated messa ge] The system which generated this result transmitted reference range: 0 - 20 mm/HR. The reference range was not used to interpret this result as normal/abnormal. Lab Interpretation (test code = 98604-9) Normal [facility] PlanoTROPONIN [id number] 11:30:08* Test Item Value Reference Range Interpretation Comments TROPONIN I (test code = 0404695744) 0.023 ng/mL See_Comment [Automated message] The system [...] of biotin. Lab Interpretation (test code = 34587-2) Normal [facility]anoCOMP. METABOLIC PANEL (79084)2021-12-06 11:28:58* Test Item Value Reference Range Interpretation Comme nts NA (test code = 0992948964) 140 mmol/L 135-145 K (test code = 7710293913) 3.1 mmol/L 3.5-5.0 L CL (test code = 9435676952) 106 mmol/L 98-108 CO2 TOTAL (test code = 6336886938) 31 mmol/L 23-31 AGAP (test code = 5874270651) 2-16 BUN (test code = 5283900812) 24 mg/dL 7-23 H GLUCOSE (test code = 4067852151) 88 mg/dL 70-110 CREATININE (test code = 4307187913) 0.95 mg/dL 0.50-1.04 TOTAL BILI (test code = 2914953708) 0.3 mg/dL 0.1-1.1 CALCIUM (test code = 8322764333) 8.4 mg/dL 8.6-10.6 L T PROTEIN (test code = 9217350091) 5.7 g/dL 6.3-8.2 L ALBUMIN (test code = 7582883850) 3.3 g/dL 3.5-5.0 L ALK PHOS (test code = 0933173226) 83 U/L 34-122 ALTv (test code = 1742-6) 44 U/L 5-35 H AST(SGOT) (test code = 7882711729) 27 U/L 13-40 eGFR (test code = 6116444227) mL/min/1.73m2 LUCILLE (test code = LUCILLE) Association [...] imaging tests). Lab Interpretation (test code = 68665-3) [facility]normal [facility]anoN-TERMINAL [id number] 11:26:47* Test Item Value Reference Range Interpretation Comme nts NT-proBNP (test code = 5479076097) 442 pg/mL See_Comment H [Automated message] The system which generated this result transmitted reference range: <=125. The reference range was not used to interpret this result as normal/abnormal. LUCILLE (test code = LUCILLE) Biotin has been reported to cause a negative bias, interpret results relative to patient's use of biotin. Lab Interpretation (test code = 39083-7) [facility]normal [facility] PlanoIRON [id number] 11:19:22* Test Item Value Reference Range Interpretation Comme nts IRON (test code = 3027648798) 34 ug/dL 50-160 L TIBC (test code = 1307081076) 408 ug/dL 250-410 % FE SAT (test code = 8102229232) 8 % 20-50 L Lab Interpretation (test cod e = 00980-5) [facility]normal [facility]anoMAGNESIUM2022-04-05 11:18:47* Test Item Value Reference Range Interpretation Comme nts MAGNESIUM (test code = 2544116850) 1.9 mg/dL 1.7-2.4 Lab Interpretation (test cod e = 37848-1) Normal [facility]anoPHOSPHORUS2022-04-05 11:18:02* Test Item Value Reference Range Interpretation Comme nts PHOSPHORUS (test code = 5287156200) 3.3 mg/dL 2.5-5.0 Lab Interpretation (test cod e = 88864-0) Normal [facility] PlanoLIPID PANEL (46321)(TOTAL CHOLESTEROL, TRIGLYCERIDES, HDL)2021-12-06 11:09:41* Test Item Value Reference Range Interpretation Comme nts CHOL (test code = 3926311849) 208 mg/dL 120-200 H HDL (test code = 0407174987) 99 mg/dL >50 HDLC RATIO (test code = 9852771760) See_Comment [Automated Jellynote[employer] Comparameglio.it] The system which generated this result transmitted reference range: <=4.5. The reference range was not used to interpret this result as normal/abnormal. TRIG (test code = 8428105660) 172 mg/dL 30-170 H LDL CHOL (test code = 23067-3) 75 mg/dL See_Comment [Automated Jellynote[employer] Comparameglio.it] The system which generated this result transmitted reference range: <=160. The reference range was not used to interpret this result as normal/abnormal. VLDL (test code = 9034232300) 34 mg/dL 5-60 Lab Interpretation (test code = 52438-3) [facility]normal [facility] PlanoURIC [id number] 11:09:21* Test Item Value Reference Range Interpretation Comme nts URIC ACID (test code = 6109422391) 6.1 mg/dL 2.9-6.0 H Lab Interpretation (test cod e = 59302-6) Abnormal [facility] PlanoGLYCOSYLATED HEMOGLOBIN (A1C)2021-12-06 08:48:15* Test Item Value Reference Range Interpretation Comme nts HGB A1C (test code = 4548-4) 5.7 % 4.0-5.7 LUCILLE (test code = LUCILLE) Reference RangesNormal: <5.7%Prediabetes: 5.7 - 6.4%Diabetes: > 6.5% Lab Interpretation (test code = 77522-6) [facility] PlanoCBC WITH [id number] 01:01:58* Test Item Value Reference Range Interpretation [...] 32.2 g/dL 31.6-35.1 RDW-SD (test code = 23268-4) 46.4 fL 39.0-49.9 RDW-CV (test code = 788-0) 15.2 % 12.0-15.5 PLT (test code = 777-3) See_Comment H [Automated message] The system which generated this result transmitted reference range: 166 - 358 10*3/?L. The reference range was not used to interpret this result as normal/abnormal. MPV (test code = 66135-7) 10.6 fL 9.5-12.9 NRBC/100 WBC (test code = 3084540460) See_Comment [Automated message] The system which generated this result transmitted reference range: 0.0 - 10.0 /100 WBCs. The reference range was not used to interpret this result as normal/abnormal. NRBC x10^3 (test code = 1051660200) See_Comment [Automated message] The system which generated this result transmitted reference range: 10*3/?L. The reference range was not used to interpret this result as normal/abnormal. SEG % (test code = 19143-7) 83 % 33-76 H BAND % (test code = 95451-8) 4 % 0-1 H LYMPH % (test code = 30877-0) 7 % 14-54 L MONO % (test code = 28155-8) 5 % 0-4 H EOS % (test code = 12506-3) 1 % 0-3 ANC (test code = 753-4) 19.01 10*3/uL 1.88-7.09 H TOXIC CHANGES (test code = 803-7) Present A Lab Interpretation (test code = 43393-3) [facility]normal [facility] PlanoWENDY [id number] 00:45:54* Test Item Value Reference Range Interpretation Comments TROPONIN I (test code = 9730443678) 0.022 ng/mL See_Comment [Automated message] The system [...] of biotin. Lab Interpretation (test code = 69953-4) [facility]anoN-TERMINAL [id number] 00:42:51* Test Item Value Reference Range Interpretation Comme [facility] NT-proBNP (test code = 6609143877) 544 pg/mL See_Comment H [Automated message] The system which generated this result transmitted reference range: <=125. The reference range was not used to interpret this result as normal/abnormal. LUCILLE (test code = LUCILLE) Biotin has been reported to cause a negative bias, interpret results relative to patient's use of biotin. Lab Interpretation (test code = 27310-7) Abnormal [facility] PlanoACTIVATED PARTIAL THRMPLAS [id number] 00:36:33* Test Item Value Reference Range Interpretation Comme [facility] APTT Patient (test code = 3173-2) See_Comment L [Automated message] The system which generated this result transmitted reference range: 23 - 38 Seconds. The reference range was not used to interpret this result as normal/abnormal. LUCILLE (test code = LUCILLE) The [facility] patient population mean normal value for aPTT is 30 seconds. Lab Interpretation (test code = 64276-2) Abnormal [facility] PlanoPROTHROMBIN TIME / [id number] 00:34:31* Test Item Value Reference Range Interpretation Comme [facility] PROTIME PATIENT (test code = 5964-2) See_Comment [Automated messa ge] The system which generated this result transmitted reference range: 12.0 - 14.7 Seconds. The reference range was not used to interpret this result as normal/abnormal. INR (test code = 6301-6) Normal INR <1.1; Warfarin Therapeutic range 2.0 to 3.0 or 2.5 to 3.5, depending upon the indications. Lab Interpretation (test code = 50396-0) Normal [facility]. METABOLIC PANEL (96044)2021-12-06 00:34:11* Test Item Value Reference Range Interpretation Comme nts NA (test code = 2602923738) 141 mmol/L 135-145 K (test code = 4044775140) 3.9 mmol/L 3.5-5.0 CL (test code = 4787902060) 104 mmol/L 98-108 CO2 TOTAL (test code = 1111867059) 27 mmol/L 23-31 AGAP (test code = 1790621508) 2-16 BUN (test code = 3979388955) 24 mg/dL 7-23 H GLUCOSE (test code = 2483037467) 117 mg/dL 70-110 H CREATININE (test code = 7405246854) 0.96 mg/dL 0.50-1.04 TOTAL BILI (test code = 6040711877) 0.4 mg/dL 0.1-1.1 CALCIUM (test code = 6657373726) 8.9 mg/dL 8.6-10.6 T PROTEIN (test code = 6670941512) 6.5 g/dL 6.3-8.2 ALBUMIN (test code = 3862636151) 4.0 g/dL 3.5-5.0 ALK PHOS (test code = 5223361345) 107 U/L 34-122 ALTv (test code = 1742-6) 49 U/L 5-35 H AST(SGOT) (test code = 1197804959) 44 U/L 13-40 H eGFR (test code = 1108311025) mL/min/1.73m2 LUCILLE (test code = LUCILLE) Association [...] imaging tests). Lab Interpretation (test code = 28105-8) [facility]normal [facility]anoPROCALCITONIN2022-04-04 02:29:14* Test Item Value Reference Range Interpretation Comme nts Procalcitonin (test code = 8315926997) 0.11 ng/mL <0.08 H LUCILLE (test code [...] lung abscess/empyema. For further information please refer to:[email or web address] Lab Interpretation (test code = 90653-7) [facility]normal [facility] PlanoLactic Acid Whole [id number] 15:26:51* Test Item Value Reference Range Interpretation Comme nts LACTIC ACID (test code = 3943029015) 2.36 mmol/L 0.50-2.20 H Lab Interpretation (test cod e = 02856-1) [facility]normal [facility] PlanoCB with [id number] 09:45:08* Test Item Value Reference Range Interpretation [...] 32.1 g/dL 31.6-35.1 RDW-SD (test code = 51693-3) 48.3 fL 39.0-49.9 RDW-CV (test code = 788-0) 15.2 % 12.0-15.5 PLT (test code = 777-3) See_Comment [Automated message] The system which generated this result transmitted reference range: 166 - 358 10*3/?L. The reference range was not used to interpret this result as normal/abnormal. MPV (test code = 93663-3) 10.3 fL 9.5-12.9 NRBC/100 WBC (test code = 3766722715) See_Comment [Automated message] The system which generated this result transmitted reference range: 0.0 - 10.0 /100 WBCs. The reference range was not used to interpret this result as normal/abnormal. NRBC x10^3 (test code = 0146162998) See_Comment [Automated message] The system which generated this result transmitted reference range: 10*3/?L. The reference range was not used to interpret this result as normal/abnormal. GRAN MAT (NEUT) % (test code = 770-8) 90.3 % IMM GRAN % (test code = 4861428695) 1.20 % LYMPH % (test code = 736-9) 5.8 % MONO % (test code = 5905-5) 2.6 % EOS % (test code = 713-8) 0.0 % BASO % (test code = 706-2) 0.1 % GRAN MAT x10^3(ANC) (test code = 6015928362) 19.89 10*3/uL 1.88-7.09 H IMM GRAN x10^3 (test code = 2950134908) 0.27 10*3/uL 0.00-0.06 H LYMPH x10^3 (test code = 731-0) 1.28 10*3/uL 1.32-3.29 L MONO x10^3 (test code = 742-7) 0.57 10*3/uL 0.33-0.92 EOS x10^3 (test code = 711-2) <0.03 0.03-0.39 L BASO x10^3 (test code = 704-7) 0.03 10*3/uL 0.01-0.07 POLYCHROMASIA (test code = 92865-9) 2+ See_Comment [Automated message] The system which generated this result transmitted reference range: 2+. The reference range was not used to interpret this result as normal/abnormal. TOXIC CHANGES (test code = 803-7) Present A Lab Interpretation (test code = 10957-4) Abnormal [facility] Metabolic Panel (NA, K, CL, CO2, GLUCOSE, BUN, CREATININE, CA)2021-12-04 09:38:00* Test Item Value Reference Range Interpretation Comme nts NA (test code = 6103910338) 137 mmol/L 135-145 K (test code = 8089672835) 3.7 mmol/L 3.5-5.0 CL (test code = 1470996374) 107 mmol/L 98-108 CO2 TOTAL (test code = 1766521287) 21 mmol/L 23-31 L AGAP (test code = 4316249504) 2-16 BUN (test code = 4714174411) 19 mg/dL 7-23 GLUCOSE (test code = 0780202296) 149 mg/dL 70-110 H CREATININE (test code = 7050830435) 1.00 mg/dL 0.50-1.04 CALCIUM (test code = 2597198724) 8.8 mg/dL 8.6-10.6 eGFR (test code = 8690312723) mL/min/1.73m2 LUCILLE (test code = LUCILLE) Association [...] imaging tests). Lab Interpretation (test code = 89203-4) [facility]normal [facility] PlanoLactic Acid Whole [id number] 09:20:11* Test Item Value Reference Range Interpretation Comme nts LACTIC ACID (test code = 1590387325) 3.77 mmol/L 0.50-2.20 H Lab Interpretation (test cod e = 59348-7) [facility]normal [facility]anoURINALYSIS2022-04-02 23:35:41* Test Item Value Reference Range Interpretation Comme nts APPEARANCE (test code = 4969108650) Clear Clear COLOR (test code = 1582712156) Yellow Yellow PH (test code = 1632322010) 4.8-8.0 SP GRAVITY (test code = 0248418615) 1.003-1.030 GLU U QUAL (test code = 0607002221) Normal Normal BLOOD (test code = 8143936987) Negative Negative Interference fro m ascorbic acid may cause false negative results. KETONES (test code = 4304894744) Negative Negative PROTEIN (test code = 2887-8) Negative Negative UROBILIN (test code = 1449680836) Normal Normal BILIRUBIN (test code = 8966752560) Negative Negative NITRITE (test code = 1381275591) Negative Negative LEUK KOJO (test code = 6886101133) Negative Negative RBC/HPF (test code = 3784667505) See_Comment [Automated Jellynotea ge] The system which generated this result transmitted reference range: 0 - 3 HPF. The reference range was not used to interpret this result as normal/abnormal. WBC/HPF (test code = 5141889819) See_Comment [Automated Jellynotea ge] The system which generated this result transmitted reference range: 0 - 5 HPF. The reference range was not used to interpret this result as normal/abnormal. BACTERIA (test code = 5108255255) Negative Negative SQ EPITH (test code = 0747005648) See_Comment H [Automated messa ge] The system which generated this result transmitted reference range: <=2 HPF. The reference range was not used to interpret this result as normal/abnormal. Lab Interpretation (test code = 65774-5) Abnormal [facility] WITH [id number] 21:54:52* Test Item Value Reference Range Interpretation [...] 31.6 g/dL 31.6-35.1 RDW-SD (test code = 51036-0) 48.1 fL 39.0-49.9 RDW-CV (test code = 788-0) 15.3 % 12.0-15.5 PLT (test code = 777-3) See_Comment [Automated message] The system which generated this result transmitted reference range: 166 - 358 10*3/?L. The reference range was not used to interpret this result as normal/abnormal. MPV (test code = 56718-4) 10.1 fL 9.5-12.9 NRBC/100 WBC (test code = 6960216258) See_Comment [Automated message] The system which generated this result transmitted reference range: 0.0 - 10.0 /100 WBCs. The reference range was not used to interpret this result as normal/abnormal. NRBC x10^3 (test code = 7134438711) See_Comment [Automated message] The system which generated this result transmitted reference range: 10*3/?L. The reference range was not used to interpret this result as normal/abnormal. GRAN MAT (NEUT) % (test code = 770-8) 90.9 % IMM GRAN % (test code = 9697507849) 0.80 % LYMPH % (test code = 736-9) 6.4 % MONO % (test code = 5905-5) 1.8 % EOS % (test code = 713-8) 0.0 % BASO % (test code = 706-2) 0.1 % GRAN MAT x10^3(ANC) (test code = 8751880025) 17.07 10*3/uL 1.88-7.09 H IMM GRAN x10^3 (test code = 3706996600) 0.15 10*3/uL 0.00-0.06 H LYMPH x10^3 (test code = 731-0) 1.20 10*3/uL 1.32-3.29 L MONO x10^3 (test code = 742-7) 0.34 10*3/uL 0.33-0.92 EOS x10^3 (test code = 711-2) <0.03 0.03-0.39 L BASO x10^3 (test code = 704-7) <0.03 0.01-0.07 TOXIC CHANGES (test code = 803-7) Present A Lab Interpretation (test code = 45787-3) [id number]-[id number] 21:47:46* Test Item Value Reference Range Interpretation Comme nts NT-proBNP (test code = 3851998074) 662 pg/mL See_Comment H [Automated message] The system which generated this result transmitted reference range: <=125. The reference range was not used to interpret this result as normal/abnormal. LUCILLE (test code = LUCILLE) Biotin has been reported to cause a negative bias, interpret results relative to patient's use of biotin. Lab Interpretation (test code = 87170-8) [facility] [id number] 21:47:46* Test Item Value Reference Range Interpretation Comments TROPONIN I (test code = 4673643435) 0.007 ng/mL See_Comment [Automated message] The system [...] of biotin. Lab Interpretation (test code = 67169-9) [facility] 21:36:08* Test Item Value Reference Range Interpretation Comme nts KIERA (test code = 5136834343) 66 U/L 35-110 Lab Interpretation (test cod e = 06894-1) [facility] 21:36:08* Test Item Value Reference Range Interpretation Comme nts LIPASE (test code = 1293295427) 83 U/L 0-220 Lab Interpretation (test cod e = 71979-9) [facility] MET[facility]OLIC PANEL (35730)2021-12-03 21:36:08* Test Item Value Reference Range Interpretation Comme nts NA (test code = 3470115067) 137 mmol/L 135-145 K (test code = 9255823386) 4.5 mmol/L 3.5-5.0 CL (test code = 6522851753) 107 mmol/L 98-108 CO2 TOTAL (test code = 6548463944) 20 mmol/L 23-31 L AGAP (test code = 4385941466) 2-16 BUN (test code = 9429863191) 20 mg/dL 7-23 GLUCOSE (test code = 0972362421) 140 mg/dL 70-110 H CREATININE (test code = 0029754706) 0.97 mg/dL 0.50-1.04 TOTAL BILI (test code = 3957558231) 0.3 mg/dL 0.1-1.1 CALCIUM (test code = 7731041203) 8.9 mg/dL 8.6-10.6 T PROTEIN (test code = 9079675098) 7.1 g/dL 6.3-8.2 ALBUMIN (test code = 9203137214) 4.3 g/dL 3.5-5.0 ALK PHOS (test code = 6910650372) 97 U/L 34-122 ALTv (test code = 1742-6) 56 U/L 5-35 H AST(SGOT) (test code = 7321939799) 38 U/L 13-40 eGFR (test code = 5278524019) mL/min/1.73m2 LUCILLE (test code = LUCILLE) Association [...] imaging tests). Lab Interpretation (test code = 88157-3) [facility] + LACTIC [id number] 21:21:29* Test Item Value Reference Range Interpretation Comme nts PH (test code = 2) 7.35-7.45 PCO2 (test code = 7815346279) See_Comment L [Automated messa ge] The system which generated this result transmitted reference range: 35 - 45 mmHg. The reference range was not used to interpret this result as normal/abnormal. PO2 (test code = 6697744591) See_Comment [Automated messa ge] The system which generated this result transmitted reference range: 80 - 100 mmHg. The reference range was not used to interpret this result as normal/abnormal. HCO3 (test code = 4332402957) See_Comment [Automated Jellynotea ge] The system which generated this result transmitted reference range: 22 - 26 mEq/L. The reference range was not used to interpret this result as normal/abnormal. BE (test code = 2223977235) See_Comment [Automated Jellynotea ge] The system which generated this result transmitted reference range: -3.0 - 3.0 mEq/L. The reference range was not used to interpret this result as normal/abnormal. LACTIC ACID (test code = 6981876148) 2.96 mmol/L 0.50-2.20 H Lab Interpretation (test code = 62717-5) Abnormal [facility] Metabolic Panel (NA, K, CL, CO2, GLUCOSE, BUN, CREATININE, CA)2021-11-10 09:40:55* Test Item Value Reference Range Interpretation Comme nts NA (test code = 6903074332) 138 mmol/L 135-145 K (test code = 3871771907) 3.4 mmol/L 3.5-5.0 L CL (test code = 7474964066) 107 mmol/L 98-108 CO2 TOTAL (test code = 6237757452) 25 mmol/L 23-31 AGAP (test code = 8333218534) 2-16 BUN (test code = 0812774919) 15 mg/dL 7-23 GLUCOSE (test code = 6743572067) 110 mg/dL 70-110 CREATININE (test code = 8575105267) 0.81 mg/dL 0.50-1.04 CALCIUM (test code = 3859484266) 7.8 mg/dL 8.6-10.6 L eGFR (test code = 5769328049) mL/min/1.73m2 LUCILLE (test code = LUCILLE) Association [...] imaging tests). Lab Interpretation (test code = 22858-2) Abnormal [facility] with Evrjllfyrwpd3374-39-64 09:25:30* Test Item Value Reference Range Interpretation Comme nts WBC (test code = 6690-2) See_Comment H [Automated FUJIAN HAIYUAN] The system which generated this result transmitted reference range: 4.30 - 11.10 10*3/?L. The reference range was not used to interpret this result as normal/abnormal. RBC (test code = 789-8) See_Comment L [Automated FUJIAN HAIYUAN] The system which generated this result transmitted [...] g/dL 31.6-35.1 L RDW-SD (test code = 70666-3) 57.2 fL 39.0-49.9 H RDW-CV (test code = 788-0) 17.0 % 12.0-15.5 H PLT (test code = 777-3) See_Comment [Automated FUJIAN HAIYUAN] The system which generated this result transmitted reference range: 166 - 358 10*3/?L. The reference range was not used to interpret this result as normal/abnormal. MPV (test code = 35538-6) 9.2 fL 9.5-12.9 L NRBC/100 WBC (test code = 7210465053) See_Comment [Automated me ssage] The system which generated this result transmitted reference range: 0.0 - 10.0 /100 WBCs. The reference range was not used to interpret this result as normal/abnormal. NRBC x10^3 (test code = 5974338166) See_Comment [Automated messa ge] The system which generated this result transmitted reference range: 10*3/?L. The reference range was not used to interpret this result as normal/abnormal. GRAN MAT (NEUT) % (test code = 770-8) 72.2 % IMM GRAN % (test code = 4437027953) 1.30 % LYMPH % (test code = 736-9) 18.9 % MONO % (test code = 5905-5) 6.3 % EOS % (test code = 713-8) 1.2 % BASO % (test code = 706-2) 0.1 % GRAN MAT x10^3(ANC) (test code = 2607669672) 8.06 10*3/uL 1.88-7.09 H IMM GRAN x10^3 (test code = 9472122843) 0.14 10*3/uL 0.00-0.06 H LYMPH x10^3 (test code = 731-0) 2.10 10*3/uL 1.32-3.29 MONO x10^3 (test code = 742-7) 0.70 10*3/uL 0.33-0.92 EOS x10^3 (test code = 711-2) 0.13 10*3/uL 0.03-0.39 BASO x10^3 (test code = 704-7) <0.03 0.01-0.07 Lab Interpretation (test code = 73703-4) [facility]normal [facility]ano[facility] Acid Whole Adjtx3562-18-32 09:22:39* Test Item Value Reference Range Interpretation Comme nts LACTIC ACID (test code = 9491655430) 3.32 mmol/L 0.50-2.20 H Lab Interpretation (test cod e = 25928-6) Abnormal [facility]anoACTIV[facility] PARTIAL THRMPLAS [id number] 02:13:42* Test Item Value Reference Range Interpretation Comme [facility] APTT Patient (test code = 3173-2) See_Comment L [Automated Jellynotea ge] The system which generated this result transmitted reference range: 26 - 36 Seconds. The reference range was not used to interpret this result as normal/abnormal. Lab Interpretation (test code = 67948-1) Abnormal [facility]anoPROTHROMBIN TIME / [id number] 02:13:42* Test Item Value Reference Range Interpretation Comme [facility] PROTIME PATIENT (test code = 5964-2) See_Comment [Automated messa ge] The system which generated this result transmitted reference range: 10.1 - 12.6 Seconds. The reference range was not used to interpret this result as normal/abnormal. INR (test code = 6301-6) Normal INR <1.1; Warfarin Therapeutic range 2.0 to 3.0 or 2.5 to 3.5, depending upon the indications. Lab Interpretation (test code = 47138-3) Normal [facility]anoD-NHNZG9246-13-89 02:13:42* Test Item Value Reference Range Interpretation Comments D-DIMER (test code = 4962908707) See_Comment H [Automated message] The system which [...] a diagnosis. Lab Interpretation (test code = 52576-0) [facility]normal [facility] METABOLIC PANEL (74963)2021-11-10 01:57:17* Test Item Value Reference Range Interpretation Comme [facility] NA (test code = 9453200939) 139 mmol/L 135-145 K (test code = 4291957829) 3.9 mmol/L 3.5-5.0 CL (test code = 5232118547) 106 mmol/L 98-108 CO2 TOTAL (test code = 7775187598) 27 mmol/L 23-31 AGAP (test code = 9785256668) 2-16 BUN (test code = 6753382911) 17 mg/dL 7-23 GLUCOSE (test code = 1883646754) 135 mg/dL 70-110 H CREATININE (test code = 1572805524) 0.72 mg/dL 0.50-1.04 TOTAL BILI (test code = 8286203299) 0.3 mg/dL 0.1-1.1 CALCIUM (test code = 7697960651) 8.1 mg/dL 8.6-10.6 L T PROTEIN (test code = 0582897872) 5.6 g/dL 6.3-8.2 L ALBUMIN (test code = 1632593296) 3.3 g/dL 3.5-5.0 L ALK PHOS (test code = 5367291266) 126 U/L 34-122 H ALTv (test code = 1742-6) 47 U/L 5-35 H AST(SGOT) (test code = 2532837340) 27 U/L 13-40 eGFR (test code = 8058903608) mL/min/1.73m2 LUCILLE (test code = LUCILLE) Association [...] imaging tests). Lab Interpretation (test code = 77801-3) [facility] + LACTIC [id number] 01:51:44* Test Item Value Reference Range Interpretation Comme nts PH (test code = 2) 7.35-7.45 PCO2 (test code = 1934855317) See_Comment [Automated messa ge] The system which generated this result transmitted reference range: 35 - 45 mmHg. The reference range was not used to interpret this result as normal/abnormal. PO2 (test code = 0004101181) See_Comment L [Automated messa ge] The system which generated this result transmitted reference range: 80 - 100 mmHg. The reference range was not used to interpret this result as normal/abnormal. HCO3 (test code = 1691536426) See_Comment [Automated messa ge] The system which generated this result transmitted reference range: 22 - 26 mEq/L. The reference range was not used to interpret this result as normal/abnormal. BE (test code = 4646197177) See_Comment [Automated messa ge] The system which generated this result transmitted reference range: -3.0 - 3.0 mEq/L. The reference range was not used to interpret this result as normal/abnormal. LACTIC ACID (test code = 3955126626) 4.25 mmol/L 0.50-2.20 H QUES Lab Interpretation (test code = 90214-7) [facility]normal [facility] WITH [id number] 01:50:58* Test Item Value Reference Range Interpretation [...] g/dL 31.6-35.1 L RDW-SD (test code = 40809-6) 55.7 fL 39.0-49.9 H RDW-CV (test code = 788-0) 16.8 % 12.0-15.5 H PLT (test code = 777-3) See_Comment [Automated message] The system which generated this result transmitted reference range: 166 - 358 10*3/?L. The reference range was not used to interpret this result as normal/abnormal. MPV (test code = 48572-0) 9.5 fL 9.5-12.9 NRBC/100 WBC (test code = 0362327290) See_Comment [Automated message] The system which generated this result transmitted reference range: 0.0 - 10.0 /100 WBCs. The reference range was not used to interpret this result as normal/abnormal. NRBC x10^3 (test code = 2213358208) <0.01 See_Comment [Automated message] The system which generated this result transmitted reference range: 10*3/?L. The reference range was not used to interpret this result as normal/abnormal. GRAN MAT (NEUT) % (test code = 770-8) 84.7 % IMM GRAN % (test code = 9794909542) 0.80 % LYMPH % (test code = 736-9) 10.9 % MONO % (test code = 5905-5) 3.4 % EOS % (test code = 713-8) 0.1 % BASO % (test code = 706-2) 0.1 % GRAN MAT x10^3(ANC) (test code = 3901828114) 11.84 10*3/uL 1.88-7.09 H IMM GRAN x10^3 (test code = 0454177271) 0.11 10*3/uL 0.00-0.06 H LYMPH x10^3 (test code = 731-0) 1.52 10*3/uL 1.32-3.29 MONO x10^3 (test code = 742-7) 0.47 10*3/uL 0.33-0.92 EOS x10^3 (test code = 711-2) <0.03 0.03-0.39 L BASO x10^3 (test code = 704-7) <0.03 0.01-0.07 Lab Interpretation (test code = 17138-7) [facility]normal [facility]anoCYTO [id number] 21:38:57* Test Item Value Reference Range Interpretation Comme nts Case Report (test code = 2221503129) Non-Gynecologic Cytology ?Case: [id number] ?Authorizing Provider: ?Anaya Kline MD ? ? Collected: ? 10/21/2021 1249 ?Ordering Location: ? ? [place] ?Received: ?10/21/2021 1257 ? Medicine/Surgery [facility] ?Pathologist: ? Glenna Alejandra MD ? Specimen: ? ?LUNG, LEFT UPPER LOBE, BRONCHOALVEOLAR LAVAGE ? Final Diagnosis (test code = 0851490627) c7iinFCyRJFen8wvRWHxmQJh ZzEwMzNcZnRuYmpcdWMxIHtc cnRmMVxlcGljOTYwMVxhbnNp LBSbtERlD3GjmtygCDxpPH5u AR8ovNkcuRTzhFZeACVzSmZq f2vqt732lDYzq1suKTJOrqgu dNp6kXxuD02oj6X3LbmfK3hg ZWQwXGdyZWVuMFxibHVlMDt9 XHBhcGVydzEyMjQwXHBhcGVy mJD6JOGaZR2chirkPSdzZMgi ROFaoeY4WXIggZUtQ4NwLJQt RJ2yaglmUMY2HPrcMDRgIXL2 DeQkEKZhp3Enxbp8KyOlbOJl ZFxwbGFpblxmczIwXHBhclxi IEExLiAgTFVORywgTEVGVCBV BSDWNoFFD8WJJiWAQo3YQ8oT CLlDDA1LABDxBWFTJYaXYykr WTHfGgXoXCExQsvyTuCwMt9v CJJULDpFXK0FCETCBEfIIIcK XZ6VCJITBWUzOYfuLBYyO2RU VMTGRQ1XTrWcTTZufdzaOsXc kWHnuGeisoDaGMwgh5OiX7Ba MjAwMFxhbnNpXGRlZmxhbmcx QZRxQMG7piWjLNEbXWsqUNEo ASieWc6qdSJvlPyjBwNmXKYy d9jdsjHXSJtoDkVoI817GISv WTvlf4ozw2MzHCBtnYOag3D6 PBAXibnubFp7q4dgGmRyCyR4 eWJlYLheF1viwnShrERjZ3Us yRHhmYe0oYrhJ16gj3V4Egqo N6iaPETnAZRjQ5LxIH0sTPPn Dws5UHF8GQO8EEVpJEMoP7Jx SL3nJXStdKDlXOu6z0wypCcx XBKoRKZ1z2vdPXcxnvU0VP3r hb5tqNl2m0cnbcQpEPBbRCXf vXCQXAOeC2HwtMxrPh7mxPl4 fZriTniuVZE9Cnb7ZB4bnm95 sva2tHhjHCUxemcfTgD7TCgb MBJreymkFKd7AOtgYRDubVR7 QSKoxILjS5UlVLLrQY9cpai4 PIQ5HHuqHMGvIrI5ZUQaxUDw OXXppMzpDMqnm209XUS8ObRc DG0wE2Bpc1A6cE1acBQhHLFj kJXlFmNeZUXfgm3fuHKuRPvp t5UeWDL3vjL9eYZqlSKmFOPj KM99Emfly4HgDdhtLQD5EJCn cvVdr8Ksq0joSqSimgGdL3xb T7IfISBuYOFxDXYuJpWmwzYq a6Sxs8AtaCYkpJd3n2ouFTFg WFIlkFzkb0doUKR6JLUeR3O5 uMRbq2uvNEkjSVNtcQB3hzY1 YCHbwZJoS4LpxV6oYRYoQZ9t jdy8k6ngKEO4EUgnNAHmNaV0 soD1EGZzbBRlKANfaOafAYje s790RNJ0NeJkGMWrt0MwO6Kd hVhqI18xcMccD15aJLFszMdc mM1ktHnkaS5tEcKgJeFiXVno bFxwbGFpblxmMVxmczIwXGxh pqtuDVZdHOpwL2pjLbYrDBUy iQsbYVlpd4CxXXOfUVHuKrgw czIwXHBhciBJIGhhdmUgcGVy g89mDJotjILfQNAzEOzhVSMj oPkbg6EtZ2vjYP3qS5TkyHDu qcOyibOrNLyyDYLzk0g0dFOj uSbla4NraOMkZL31jsMtBXCu VTY6ZSOfl4aaBN31nfjoAsUt uZ43gsQrqjPhATNil9haU0zb nVEsa3Jku3NkoeAbVLqzx0Sf YB8kjHXhpowdkAI5JQRzzPXi adOtalP6xDbqLPOjrD9moF2j qNuamX4eGfHlTfQzONzbZF7a GFEuT3vsvMDuVICdDIZyZ3el XaOpyU1txCkiGrxvaqO2JUCd cn19 Final Diagnosis Comment (test code = 0052010785) e1uchFOwVANceXJ4IqAgHCTm v6dyc5ZyfGWrpDUtYNkshUWq izZmwn07jWG0hA47MZ8nPPMa AhX0ERZhssO3Xcr9JJFqPQJq hUJjN165w7pcq9vbzhXqvAC1 NQXoZZOwB6SoNI5nJDAceUBn F17dfTFwBLV6QPGlTEJoqITe DZKmZSZ1PPZnqARyQ7imXKJp BG9aenncXVkpLExnWYDndAT9 RBWriRMcX2OoIHAaCJauGWHo fko2VlGsYi9hfMVyvBfgIIjh PPSiBHJkVDwyGTEwWmRyI98q FUNsOZFpa9iucD1sjEl1GNTu f67neW3cHJGevHjlvTaygCFl RBojbkZluwAoAuG2MKBgjhXu rGBzBO6fW1JtnXliN2QuQhHA FLLnNCbjl1VzXI4hIYN1eRUk FsKelrU4lL8fyQQgppUaBZCe PhWcV2HuQW4nZT0bcUddeeIh dCBjZWxscyBpZGVudGlmaWVk SdumVXDxD7MfMGRiiy7= Clinical Information (test code = 8849495145) 1. Pneumonia / covid / SARS Gross Description (test code = 4545111708) j1gbyANhXDXqaXA5KtJeMFIa f2smn4MmnNVvpHTcQEeabHGf ulOqct96mGW0nH96WQ7oZHVa UmF3QDKdulU0Jnu3POHpMJJe bNEwU265u4xck7vrawVgpIP6 PAGvRJWkR2IiDV1hBREzpIGq A32fsPGiUCS2UMBaFCVezVCd FJGsDKD9HUMdfMRpL8llCCVk AY3ynwrwEYcbEVvlUSOumCN3 LGPdtYCmT4DhVOMiLLhuMONt lel5OgHoTw7lfZEhiZviVLgc PJIpj6sjUUAqnBIbPJN5BUfb dZXzLNHiCSCrLQx0TWZgLWaa hWBvRD3vkRriAvqikZjpg1Du dCBcXGlkIDUxMDAyIFxcZGIg B8XLTVDoPiUtBcg5ZYQzUKr4 BWj0GC7CNfXeGZZzYbj2KJLy LtFbKNk4VDpxFL0GWWV6HyQ1 OETiHvlmDQUlSuHmCQv2PXSa XFxmbCBcXGYgQXJpYWwgXFxm rsPkVUDrHT8bjPuxbFZsujxu czIwXHBhclxmczIyXHBhciBB HW7lWVcTNpfbYUjVWpMfZTTO VHBrOK7RISeiJeHDFuHRT8KG VkVPTEFSIExBVkFHRVxwYXJc IyYjDIteJwMeFdFrXVk4GRTz VoWlv9tgmIZzU8RhfxKdXCQe vQOcLRT1INWeW0Tet5IuY9zj YTZbIiv2rTZkksPcBJx9MSQa CfVgl5dkjBPeGZNaBIFxvlYm HMStn8trZCEdCIeIdNVnd4Ct igXbbhMdSIQraVigbkB7UOGt Id0iQD6lj1NncNJzndKbQXXI LTOmmkvff6mwn1Mre1UmnH8t ZClcZnMyMlxjZjAgIHtcZXBp R6UqP6DsrpI7f2huhEuli9Kw rXKmQV8ccDClbC== Disclaimer (test code = 2744774398) m7jjzHPuATTjx1mdCGLakKKz ZzEwMzNcZnRuYmpcdWMxIHtc arPaCFyou4IhG7YeViNjRGiq bnNpXGRlZmxhbmcxMDMzXGZ0 sfZaJEKzKZtqFCCcOCsoTz5p rRAwnUpbPdXzAHRkm5oaqfZJ OXfpAdSuV424NAOiAFjpd0ma e9YaHEIdwWLyo4Y7GGZNccvq gFm6tNidF73qh8V9SkykC6ip ESCzCVWzW2KhWD1dIECdGnv7 CYQ6IDM6BKQgPLPmT1FpYI2l VSErqCOcRTx7q9zsbBhcPLVa COX5g4seTSktlnChMI1bpw9t aUg3b1gdgrXeWPWcUKSwaLIS PREpF7IkdXlnEp0rlLl3gGqf PfbuEQN7Zsk3TZ8sir03udz0 iRxvKFHftrshLvL3IYiqWXDx aryrKPp8EXwoDNPjhAR9WBEt oOWiH8OmGQSdHX6qynv8DKY9 UZbbEZEoFbT9BAVrzARiMHCx kMtvBHlbr654VRF9KyEjCV5t A6Nri8M3aV0yaNEeTZMqgCRe XbVvHMEvph6trNSoFPrpk5Iw ZTC7tmA5yKZefSLpNRZmPE74 Ddjej5NnXopte4BiO86ymTG8 UPhkl9pnQO5cUzI9gnKsSTyt h8cluY5jAtL5ZFrqZQ0hPH1g YAUkkN5gycnvEHSeMuIqvfsh CDJxiQtodwDqWl0nqVxdQQK0 EOwuZ9eliG2mReE6ODmwU4iy aE3iIFo2IZffaPG6NPScpU4o LX7uencmh1mbELxvIOqwRDOi tnZ1lkR2JZExmDSfZ1FylO9a ORXmYT7cljaly9ngVRQ9SIec PLCjGAL9AlJzNKIrr8Itrku0 SfAsi4NitENaGZwfH78kn601 CBIqjjLoT8zjqFOvrxthtHIg qvtlSBxcupP2SNWtbiInp1Rg VZMiVEB6DUpyMJhbwNHlCJNy vZvoi7vgN1QouWFaUWYwMOvv XGYxXGZzMjBcbGFuZzEwMzNc aGljaFxmMVxkYmNoXGYxXGxv A7pnYzXjR9KtHDUhLqHodLIt Q4liKJcvcuDcVIUqijMiqRE7 AIdgH0j7RKCnnyFdtYr9laNw KsNsPLAuSDO3HJxwoDTzAKGc g0OzugibxWVqYz3ncONxRHEw mR7tXXUvLCKiNMjyZL3xbPm8 QWKBpKPrmVFjQyIELIJmJM30 bfCoMVEMvzoow6A9TJqjIZHy p4HpdJDnR9ylc4FoESDhb04a AA4id3N9a6mtGCL8CF2ak4Hv XZJzoLKabZUrHHYjq2Wbgcuz m4OyRMLlxjCiu8SaMNDkarLm tURdNIVnphSvvt1emoIkXWFj MUDrG0GcawlccBslgoIcLLYz np9abxHaJMY8HDXUQYMfQNAh w4WrcH4xlBBESGQ2vGOpgk6h bmLGpRNcRTSxmd15MCFwAR0g S4kdIQHaVFGjohQhgXOlm4Xv ZWLgwZZ5iMQaNG0MWsBDq36v IGFuZCBEcnVnIEFkbWluaXN0 ilW5bS6gCGfSFHUaEyn+IFRo JNBKRJHpQI1eafFpl9RvsjKd jStjSPAczLLaw3ZwvNVpf7Dv zNcsr0AqzTPxjVGwOJ6wWLNh clxwYXIgVVRNQiBMYWJvcmF0 q8RwXEZqBVMpVID0fZqadxc1 ZJPoaP7aMIUaO2lvdrawPOja KYSyf4UyfN2fbSTIhJWvv7Ul gOGeoWHDdKBwJI6rwoCoDVjD IKcGQJW5rdAcTHJdz0BcSRad R6nnJ84udNfcwSs8hEN0DSC8 hD0rPnd+IFxwYXJccGFyIEFw tCIzdBMzYDDqfRgduhEzS1Fc qoLazJ6ufRQjmwJeID4uSB1a L8H1uRYwHKFlceGck7psJPwi dmUgYmVlbiByZXZpZXdlZCBm n6BbRPpfDAH3FYtpqyJmjaBk dWRpbmcgSCZFLCBTcGVjaWFs BCD9XUpayeRevwNuIK7bzI0k sFwqaR8jhZUtaHC7irkpXABa OZIucPyzBEWdAA4ahACrQACx bvMWcGvaaAXurJ2kA2IzNLLh QLXaah6iPQYcvS0mZOxcz1Hi mlhdNUZeSDQcHUZrbuHlzv2f OUUkqPTWBW4OCVgbfDEkb9Hz saDuD0lOPBT1SECbXhUfDcdm XCMhlGEynJYoFWVfjm12DGRf iJ7ptHqfILJxxV6tbK6avZjh lO0eFmUtXlBiBGhoZY2vYJNn H9ylyCOzBBGoZKRvZ0adAjMo xT1tjLejBRkoVdDsNtXvZHld YXJ9fQ== Embedded Images (test code = 5456589385) [facility] [id number] 20:07:20* Test Item Value Reference Range Interpretation Comme nts SHIRA (test code = 8021541965) Negative Negative LUCILLE (test code = LUCILLE) [...] reported separately. Lab Interpretation (test code = 89909-2) [facility] (NA, K, CL, CO2, GLUCOSE, BUN, CREATININE, CA)2021-10-24 13:05:02* Test Item Value Reference Range Interpretation Comme [facility] NA (test code = 4919502890) 134 mmol/L 135-145 L K (test code = 3744075909) 4.5 mmol/L 3.5-5.0 CL (test code = 0289858565) 99 mmol/L 98-108 CO2 TOTAL (test code = 7053802265) 30 mmol/L 23-31 AGAP (test code = 4964365917) 2-16 BUN (test code = 2362328938) 23 mg/dL 7-23 GLUCOSE (test code = 8720677237) 118 mg/dL 70-110 H CREATININE (test code = 8552100803) 0.71 mg/dL 0.50-1.04 CALCIUM (test code = 6873185283) 8.2 mg/dL 8.6-10.6 L eGFR (test code = 8315225977) mL/min/1.73m2 LUCILLE (test code = LUCILLE) Association [...] imaging tests). Lab Interpretation (test code = 86421-9) Abnormal [facility] METABOLIC PANEL (NA, K, CL, CO2, GLUCOSE, BUN, CREATININE, CA)2021-10-24 13:05:02* Test Item Value Reference Range Interpretation Comme nts NA (test code = 3218948221) 134 mmol/L 135-145 L K (test code = 0297224879) 4.5 mmol/L 3.5-5.0 CL (test code = 7967801560) 99 mmol/L 98-108 CO2 TOTAL (test code = 2451209174) 30 mmol/L 23-31 AGAP (test code = 3915910665) 2-16 BUN (test code = 9948757709) 23 mg/dL 7-23 GLUCOSE (test code = 8454716855) 118 mg/dL 70-110 H CREATININE (test code = 0302405092) 0.71 mg/dL 0.50-1.04 CALCIUM (test code = 6443558643) 8.2 mg/dL 8.6-10.6 L eGFR (test code = 0784544772) mL/min/1.73m2 LUCILLE (test code = LUCILLE) Association [...] imaging tests). Lab Interpretation (test code = 84936-0) Abnormal [facility] WITHOUT [id number] 12:51:39* Test Item Value Reference Range Interpretation [...] result as normal/abnormal. MPV (test code = 43729-8) 10.1 fL 9.5-12.9 RDW-CV (test code = 788-0) 14.2 % 12.0-15.5 RDW-SD (test code = 60744-0) 43.8 fL 39.0-49.9 NRBC x10^3 (test code = 1655042478) See_Comment [Automated messa ge] The system which generated this result transmitted reference range: 10*3/?L. The reference range was not used to interpret this result as normal/abnormal. NRBC/100 WBC (test code = 8542723881) See_Comment [Automated messa ge] The system which generated this result transmitted reference range: 0.0 - 10.0 /100 WBCs. The reference range was not used to interpret this result as normal/abnormal. IPF % (test code = 2794092169) Lab Interpretation (test code = 93188-6) Abnormal [facility] WITHOUT [id number] 12:51:39* Test Item Value Reference Range Interpretation [...] result as normal/abnormal. MPV (test code = 66862-3) 10.1 fL 9.5-12.9 RDW-CV (test code = 788-0) 14.2 % 12.0-15.5 RDW-SD (test code = 86510-3) 43.8 fL 39.0-49.9 NRBC x10^3 (test code = 3669735210) See_Comment [Automated [employer] Compar[employer]gl[employer]it] The system which generated this result transmitted reference range: 10*3/?L. The reference range was not used to interpret this result as normal/abnormal. NRBC/100 WBC (test code = 5272727937) See_Comment [Automated FUJIAN HAIYUAN] The system which generated this result transmitted reference range: 0.0 - 10.0 /100 WBCs. The reference range was not used to interpret this result as normal/abnormal. IPF % (test code = 6314301947) Lab Interpretation (test code = 11808-2) [facility]normal [facility]MYCO[facility]CT[facility] TUBERCULOSIS COMPLEX PCR 2021-10-23 16:23:29* Test Item Value Reference Range Interpretation Comme nts Mycobacterium tuberculosis DNA (test code = 27431-4) Negative Negative LUCILLE (test code = LUCILLE) Method performance specifications have not been established for specimens other than SPUTUM. Results for other tested specimen types should be interpreted based on clinical context. Lab Interpretation (test code = 72565-9) Normal [facility]anoMYCOBACTERIUM TUBERCULOSIS COMPLEX PCR 2021-10-23 16:23:29* Test Item Value Reference Range Interpretation Comme nts Mycobacterium tuberculosis DNA (test code = 31009-9) Negative Negative LUCILLE (test code = LUCILLE) Method performance specifications have not been established for specimens other than SPUTUM. Results for other tested specimen types should be interpreted based on clinical context. Lab Interpretation (test code = 39682-9) Normal [facility]anoRESPIRAT[facility] PANEL BY [id number] 20:36:40* Test Item Value Reference Range Interpretation Comme nts Adenovirus (test code = 17850-0) Negative Negative Coronavirus HKU1 (test code = 99215-8) Negative Negative Coronavirus NL63 (test code = 86163-9) Negative Negative Coronavirus 229E (test code = 94668-2) Negative Negative Coronavirus OC43 (test code = 94282-5) Negative Negative Human Metapneumovirus (test code = 90299-8) Negative Negative Human Rhinovirus/Enterovirus (test code = 39328-1) Negative Negative Influenza A (test code = 82604-6) Negative Negative Influenza B (test code = 82968-6) Negative Negative Parainfluenza Virus 1 (test code = 14472-9) Negative Negative Parainfluenza Virus 2 (test code = 32963-8) Negative Negative Parainfluenza Virus 3 (test code = 68997-8) Negative Negative Parainfluenza Virus 4 (test code = 78966-6) Negative Negative Respiratory Syncytial Virus (test code = 57276-5) Negative Negative Bordetella parapertussis (test code = 35644-6) Negative Negative Bordetella pertussis (test code = 02054-4) Negative Negative Chlamydia pneumoniae (test code = 81145-2) Negative Negative Mycoplasma pneumoniae (test code = 60037-0) Negative Negative LUCILLE (test code = LUCILLE) Negative:A negativ e result does not rule-out infection. ?This assay does not test for all potential infectious agents. ? Positive:A positive test result does not necessarily indicate the presence of viable organism. ? Lab Interpretation (test code = 54589-4) [facility] PAN[facility] BY [id number] 20:36:40* Test Item Value Reference Range Interpretation Comme nts Adenovirus (test code = 30263-3) Negative Negative Coronavirus HKU1 (test code = 12863-6) Negative Negative Coronavirus NL63 (test code = 50243-3) Negative Negative Coronavirus 229E (test code = 88712-5) Negative Negative Coronavirus OC43 (test code = 85593-1) Negative Negative Human Metapneumovirus (test code = 06408-0) Negative Negative Human Rhinovirus/Enterovirus (test code = 04717-3) Negative Negative Influenza A (test code = 35327-4) Negative Negative Influenza B (test code = 72632-2) Negative Negative Parainfluenza Virus 1 (test code = 89502-4) Negative Negative Parainfluenza Virus 2 (test code = 66226-1) Negative Negative Parainfluenza Virus 3 (test code = 95274-3) Negative Negative Parainfluenza Virus 4 (test code = 07563-1) Negative Negative Respiratory Syncytial Virus (test code = 07899-0) Negative Negative Bordetella parapertussis (test code = 58337-8) Negative Negative Bordetella pertussis (test code = 85247-5) Negative Negative Chlamydia pneumoniae (test code = 38352-5) Negative Negative Mycoplasma pneumoniae (test code = 10496-8) Negative Negative LUCILLE (test code = LUCILLE) Negative:A negativ e result does not rule-out infection. ?This assay does not test for all potential infectious agents. ? Positive:A positive test result does not necessarily indicate the presence of viable organism. ? Lab Interpretation (test code = 03334-9) Normal [facility]anoANTI-NUCLEAR ANTIBODY-PATHOLOGIST [id number] 19:52:54ANA - Pathologist InterpretationANA HEp-2 II Pathologist [...] female gender. Clinical correlation is recommended. ? (https://pubmed.ncbi.nlm.nih.gov/45679932/) ? If the patient's clinical condition changes/progresses, [...] indicated. Juanis Mata MD ?10/22/2021 ?1:52 PM [facility] LABORAT[facility] SERVICESB[facility]anoANTI-NUCLEAR ANTIBODY- PATHOLOGIST [id number] 19:52:54ANA - Pathologist InterpretationANA HEp-2 II Pathologist [...] female gender. Clinical correlation is recommended. ? (https://pubmed.ncbi.nlm.nih.gov/82582266/) ? If the patient's clinical condition changes/progresses, [...] indicated. Juanis Mata MD ?10/22/2021 ?1:52 PM [facility]Un[facility] WITH [id number] 11:43:17* Test Item Value Reference Range Interpretation [...] 32.1 g/dL 31.6-35.1 RDW-SD (test code = 46631-1) 46.8 fL 39.0-49.9 RDW-CV (test code = 788-0) 14.6 % 12.0-15.5 PLT (test code = 777-3) See_Comment H [Automated message] The system which generated this result transmitted reference range: 166 - 358 10*3/?L. The reference range was not used to interpret this result as normal/abnormal. MPV (test code = 64942-4) 10.2 fL 9.5-12.9 NRBC/100 WBC (test code = 3730888493) See_Comment [Automated message] The system which generated this result transmitted reference range: 0.0 - 10.0 /100 WBCs. The reference range was not used to interpret this result as normal/abnormal. NRBC x10^3 (test code = 0688784616) <0.01 See_Comment [Automated message] The system which generated this result transmitted reference range: 10*3/?L. The reference range was not used to interpret this result as normal/abnormal. GRAN MAT (NEUT) % (test code = 770-8) 93.6 % IMM GRAN % (test code = 1904750876) 2.10 % LYMPH % (test code = 736-9) 2.8 % MONO % (test code = 5905-5) 1.4 % EOS % (test code = 713-8) 0.0 % BASO % (test code = 706-2) 0.1 % GRAN MAT x10^3(ANC) (test code = 8881753030) 17.50 10*3/uL 1.88-7.09 H IMM GRAN x10^3 (test code = 8837388384) 0.40 10*3/uL 0.00-0.06 H LYMPH x10^3 (test code = 731-0) 0.53 10*3/uL 1.32-3.29 L MONO x10^3 (test code = 742-7) 0.26 10*3/uL 0.33-0.92 L EOS x10^3 (test code = 711-2) <0.03 0.03-0.39 L BASO x10^3 (test code = 704-7) <0.03 0.01-0.07 TOXIC CHANGES (test code = 803-7) Present A Lab Interpretation (test code = 36686-6) Abnormal [facility] WITH [id number] 11:43:17* Test Item Value Reference Range Interpretation [...] 32.1 g/dL 31.6-35.1 RDW-SD (test code = 08608-3) 46.8 fL 39.0-49.9 RDW-CV (test code = 788-0) 14.6 % 12.0-15.5 PLT (test code = 777-3) See_Comment H [Automated message] The system which generated this result transmitted reference range: 166 - 358 10*3/?L. The reference range was not used to interpret this result as normal/abnormal. MPV (test code = 92686-3) 10.2 fL 9.5-12.9 NRBC/100 WBC (test code = 5500438485) See_Comment [Automated message] The system which generated this result transmitted reference range: 0.0 - 10.0 /100 WBCs. The reference range was not used to interpret this result as normal/abnormal. NRBC x10^3 (test code = 9774029413) <0.01 See_Comment [Automated message] The system which generated this result transmitted reference range: 10*3/?L. The reference range was not used to interpret this result as normal/abnormal. GRAN MAT (NEUT) % (test code = 770-8) 93.6 % IMM GRAN % (test code = 5463158412) 2.10 % LYMPH % (test code = 736-9) 2.8 % MONO % (test code = 5905-5) 1.4 % EOS % (test code = 713-8) 0.0 % BASO % (test code = 706-2) 0.1 % GRAN MAT x10^3(ANC) (test code = 4203132570) 17.50 10*3/uL 1.88-7.09 H IMM GRAN x10^3 (test code = 0209106051) 0.40 10*3/uL 0.00-0.06 H LYMPH x10^3 (test code = 731-0) 0.53 10*3/uL 1.32-3.29 L MONO x10^3 (test code = 742-7) 0.26 10*3/uL 0.33-0.92 L EOS x10^3 (test code = 711-2) <0.03 0.03-0.39 L BASO x10^3 (test code = 704-7) <0.03 0.01-0.07 TOXIC CHANGES (test code = 803-7) Present A Lab Interpretation (test code = 84813-2) Abnormal [facility] METABOLIC PANEL (NA, K, CL, CO2, GLUCOSE, BUN, CREATININE, CA)2021-10-22 11:20:32* Test Item Value Reference Range Interpretation Comme nts NA (test code = 0754872352) 136 mmol/L 135-145 K (test code = 8655308758) 4.3 mmol/L 3.5-5.0 CL (test code = 9808630901) 103 mmol/L 98-108 CO2 TOTAL (test code = 5788430522) 26 mmol/L 23-31 AGAP (test code = 1337750741) 2-16 BUN (test code = 1746887116) 18 mg/dL 7-23 GLUCOSE (test code = 4424977321) 185 mg/dL 70-110 H CREATININE (test code = 0209315213) 0.69 mg/dL 0.50-1.04 CALCIUM (test code = 3055891218) 7.9 mg/dL 8.6-10.6 L eGFR (test code = 4860935349) mL/min/1.73m2 LUCILLE (test code = LUCILLE) Association [...] imaging tests). Lab Interpretation (test code = 58061-3) [facility]normal [facility]MAG[facility]2022-02-19 11:20:32* Test Item Value Reference Range Interpretation Comme nts MAGNESIUM (test code = 0080862661) 2.2 mg/dL 1.7-2.4 Lab Interpretation (test cod e = 08539-9) [facility] (NA, K, CL, CO2, GLUCOSE, BUN, CREATININE, CA)2021-10-22 11:20:32* Test Item Value Reference Range Interpretation Comme nts NA (test code = 6202989964) 136 mmol/L 135-145 K (test code = 3261001844) 4.3 mmol/L 3.5-5.0 CL (test code = 7560647082) 103 mmol/L 98-108 CO2 TOTAL (test code = 6717118573) 26 mmol/L 23-31 AGAP (test code = 8435897006) 2-16 BUN (test code = 0918478161) 18 mg/dL 7-23 GLUCOSE (test code = 2742867069) 185 mg/dL 70-110 H CREATININE (test code = 6594086894) 0.69 mg/dL 0.50-1.04 CALCIUM (test code = 7558043024) 7.9 mg/dL 8.6-10.6 L eGFR (test code = 0405276020) mL/min/1.73m2 LUCILLE (test code = LUCILLE) Association [...] imaging tests). Lab Interpretation (test code = 70485-3) [facility]normal [facility]2022-02-19 11:20:32* Test Item Value Reference Range Interpretation Comme nts MAGNESIUM (test code = 0166681901) 2.2 mg/dL 1.7-2.4 Lab Interpretation (test cod e = 70106-1) Normal [facility]anoBL[facility] [id number] 23:01:06* Test Item Value Reference Range Interpretation Comme nts Blood Culture-Aerobic (test code = 91730-4) No organisms isolated No growth Previous preliminary verified result was Culture In Progress on 10/16/2021 at 2002 CSTPrevious preliminary verified result was No growth at 24 hours on 10/17/2021 at 1701 CSTPrevious preliminary verified result was No growth at 48 hours on 10/18/2021 at 1701 CSTPrevious preliminary verified result was No growth at 72 hours on 10/19/2021 at 1702 KITCHEN HAND Blood Culture-Anaerobic (test code = 77540-2) No organisms isolated No growth Previous preliminary verified result was Culture In Progress on 10/16/2021 at 2002 CSTPrevious preliminary verified result was No growth at 24 hours on 10/17/2021 at 1701 CSTPrevious preliminary verified result was No growth at 48 hours on 10/18/2021 at 1701 CSTPrevious preliminary verified result was No growth at 72 hours on 10/19/2021 at 1702 KITCHEN HAND Lab Interpretation (test code = 22557-9) Normal [facility] [id number] 23:01:06* Test Item Value Reference Range Interpretation Comme nts Blood Culture-Aerobic (test code = 30841-6) No organisms isolated No growth Previous preliminary verified result was Culture In Progress on 10/16/2021 at 2002 CSTPrevious preliminary verified result was No growth at 24 hours on 10/17/2021 at 1701 CSTPrevious preliminary verified result was No growth at 48 hours on 10/18/2021 at 1702 CSTPrevious preliminary verified result was No growth at 72 hours on 10/19/2021 at 1702 KITCHEN HAND Blood Culture-Anaerobic (test code = 00092-9) No organisms isolated No growth Previous preliminary verified result was Culture In Progress on 10/16/2021 at 2001 CSTPrevious preliminary verified result was No growth at 24 hours on 10/17/2021 at 1701 CSTPrevious preliminary verified result was No growth at 48 hours on 10/18/2021 at 1702 CSTPrevious preliminary verified result was No growth at 72 hours on 10/19/2021 at 1702 KITCHEN HAND Lab Interpretation (test code = 29208-3) Normal [facility] CULTURE [id number] 23:01:06* Test Item Value Reference Range Interpretation Comme nts Blood Culture-Aerobic (test code = 29285-9) No organisms isolated No growth Previous preliminary verified result was Culture In Progress on 10/16/2021 at 2001 CSTPrevious preliminary verified result was No growth at 24 hours on 10/17/2021 at 1701 CSTPrevious preliminary verified result was No growth at 48 hours on 10/18/2021 at 1701 CSTPrevious preliminary verified result was No growth at 72 hours on 10/19/2021 at 1702 KITCHEN HAND Blood Culture-Anaerobic (test code = 94504-1) No organisms isolated No growth Previous preliminary verified result was Culture In Progress on 10/16/2021 at 2001 CSTPrevious preliminary verified result was No growth at 24 hours on 10/17/2021 at 1701 CSTPrevious preliminary verified result was No growth at 48 hours on 10/18/2021 at 1701 CSTPrevious preliminary verified result was No growth at 72 hours on 10/19/2021 at 1702 KITCHEN HAND Lab Interpretation (test code = 20179-1) Normal [facility] CULTURE [id number] 23:01:06* Test Item Value Reference Range Interpretation Comme nts Blood Culture-Aerobic (test code = 66509-3) No organisms isolated No growth Previous preliminary verified result was Culture In Progress on 10/16/2021 at 2001 CSTPrevious preliminary verified result was No growth at 24 hours on 10/17/2021 at 1701 CSTPrevious preliminary verified result was No growth at 48 hours on 10/18/2021 at 1702 CSTPrevious preliminary verified result was No growth at 72 hours on 10/19/2021 at 1702 KITCHEN HAND Blood Culture-Anaerobic (test code = 41104-5) No organisms isolated No growth Previous preliminary verified result was Culture In Progress on 10/16/2021 at 2002 CSTPrevious preliminary verified result was No growth at 24 hours on 10/17/2021 at 1701 CSTPrevious preliminary verified result was No growth at 48 hours on 10/18/2021 at 1702 CSTPrevious preliminary verified result was No growth at 72 hours on 10/19/2021 at 1702 KITCHEN HAND Lab Interpretation (test code = 32172-4) [facility] PAN[facility] + LACTIC [id number] 20:42:21* Test Item Value Reference Range Interpretation Comme nts PH (test code = 2) 7.35-7.45 PCO2 (test code = 8678909804) See_Comment [Automated messa ge] The system which generated this result transmitted reference range: 35 - 45 mmHg. The reference range was not used to interpret this result as normal/abnormal. PO2 (test code = 7099204982) See_Comment H [Automated messa ge] The system which generated this result transmitted reference range: 80 - 100 mmHg. The reference range was not used to interpret this result as normal/abnormal. HCO3 (test code = 8641699037) See_Comment [Automated messa ge] The system which generated this result transmitted reference range: 22 - 26 mEq/L. The reference range was not used to interpret this result as normal/abnormal. BE (test code = 6669905105) See_Comment [Automated messa ge] The system which generated this result transmitted reference range: -3.0 - 3.0 mEq/L. The reference range was not used to interpret this result as normal/abnormal. THB (test code = 5562385022) 12.1 g/dL 12.0-16.0 %O2HB (test code = 2412417556) 99.5 % 94.0-99.0 H %COHB ART (test code = 3537894834) 0.1 % 0.0-1.5 %METHB ART (test code = 8433659797) 0.1 % 0.4-1.5 L VOL%O2 ART (test code = 8293434600) 17.8 % 15.0-23.0 NA (test code = 0443368648) 135 mmol/L 135-145 K+ (test code = 0138610027) 4.3 mmol/L 3.5-5.0 AC CA IONZ (test code = 1913979132) 4.50 mg/dL 4.50-5.30 GLUCOSE (test code = 5158853544) 108 mg/dL 70-110 LACTIC ACID (test code = 6201735895) 2.19 mmol/L 0.50-2.20 Lab Interpretation (test code = 70983-2) [facility]normal [facility] + LACTIC [id number] 20:42:21* Test Item Value Reference Range Interpretation Comme nts PH (test code = 2) 7.35-7.45 PCO2 (test code = 8946849078) See_Comment [Automated messa ge] The system which generated this result transmitted reference range: 35 - 45 mmHg. The reference range was not used to interpret this result as normal/abnormal. PO2 (test code = 6517243449) See_Comment H [Automated messa ge] The system which generated this result transmitted reference range: 80 - 100 mmHg. The reference range was not used to interpret this result as normal/abnormal. HCO3 (test code = 6608809355) See_Comment [Automated messa ge] The system which generated this result transmitted reference range: 22 - 26 mEq/L. The reference range was not used to interpret this result as normal/abnormal. BE (test code = 5294738233) See_Comment [Automated messa ge] The system which generated this result transmitted reference range: -3.0 - 3.0 mEq/L. The reference range was not used to interpret this result as normal/abnormal. THB (test code = 9980773137) 12.1 g/dL 12.0-16.0 %O2HB (test code = 5944512042) 99.5 % 94.0-99.0 H %COHB ART (test code = 6961450894) 0.1 % 0.0-1.5 %METHB ART (test code = 3302468899) 0.1 % 0.4-1.5 L VOL%O2 ART (test code = 0022982412) 17.8 % 15.0-23.0 NA (test code = 2652735794) 135 mmol/L 135-145 K+ (test code = 3436535416) 4.3 mmol/L 3.5-5.0 AC CA IONZ (test code = 5309631394) 4.50 mg/dL 4.50-5.30 GLUCOSE (test code = 3425065221) 108 mg/dL 70-110 LACTIC ACID (test code = 7607774920) 2.19 mmol/L 0.50-2.20 Lab Interpretation (test code = 60747-3) Abnormal [facility]anoANGIOTENSIN CONVERTING [id number] 20:19:53* Test Item Value Reference Range Interpretation Comme nts MELLY (test code = 2742-5) 28 U/L 9-67 Performed By: L[facility] [place], [place] [address]Laboratory Director: Korin Barillas MD [facility] PlanoANGIOTENSIN CONVERTING [id number] 20:19:53* Test Item Value Reference Range Interpretation Comme nts MELLY (test code = 2742-5) 28 U/L 9-67 Performed By: [facility] [place], [place] [id number] Director: Korin Barillas MD [facility] FLUID MANUAL [id number] 19:44:45* Test Item Value Reference Range Interpretation Comme nts BF SEGS% (test code = 94329-1) 2 % BF LYMPHS% (test code = 91024-4) 12 % BF MACROPHAGE% (test code = 81322-5) 86 % BF #CELLS CNTD (test code = 7246778413) cells/u L [facility] FLUID MANUAL [id number] 19:44:45* Test Item Value Reference Range Interpretation Comme nts BF SEGS% (test code = 13110-1) 2 % BF LYMPHS% (test code = 29576-8) 12 % BF MACROPHAGE% (test code = 78139-3) 86 % BF #CELLS CNTD (test code = 7128491494) cells/u L [facility] FLUID DIRECT [id number] 19:44:30* Test Item Value Reference Range Interpretation Comme nts BF COLOR (test code = 7507195580) Clear BF WBC Count (test code = 8439404200) See_Comment [Automated messa ge] The system which generated this result transmitted reference range: /?L. The reference range was not used to interpret this result as normal/abnormal. BF RBC Count (test code = 1029320389) <3000 See_Comment [Automated messa ge] The system [...] [facility]anoBODY FLUID DIRECT [id number] 19:44:30* Test Item Value Reference Range Interpretation Comme nts BF COLOR (test code = 5525402432) Clear BF WBC Count (test code = 1923241935) See_Comment [Automated messa ge] The system which generated this result transmitted reference range: /?L. The reference range was not used to interpret this result as normal/abnormal. BF RBC Count (test code = 5202339562) <3000 See_Comment [Automated messa ge] The system [...] [facility] PlanoCB WITH [id number] 19:27:30* Test Item Value Reference Range Interpretation [...] g/dL 31.6-35.1 H RDW-SD (test code = 80702-6) 45.8 fL 39.0-49.9 RDW-CV (test code = 788-0) 14.4 % 12.0-15.5 PLT (test code = 777-3) See_Comment H [Automated message] The system which generated this result transmitted reference range: 166 - 358 10*3/?L. The reference range was not used to interpret this result as normal/abnormal. MPV (test code = 47944-6) 10.4 fL 9.5-12.9 NRBC/100 WBC (test code = 1224918603) See_Comment [Automated message] The system which generated this result transmitted reference range: 0.0 - 10.0 /100 WBCs. The reference range was not used to interpret this result as normal/abnormal. NRBC x10^3 (test code = 3026994429) See_Comment [Automated message] The system which generated this result transmitted reference range: 10*3/?L. The reference range was not used to interpret this result as normal/abnormal. SEG % (test code = 30360-4) 84 % 33-76 H BAND % (test code = 68274-5) 8 % 0-1 H MYELO % (test code = 35905-3) 2 % See_Comment H [Automated message] The system which generated this result transmitted reference range: <=0. The reference range was not used to interpret this result as normal/abnormal. LYMPH % (test code = 45806-2) 4 % 14-54 L MONO % (test code = 13771-9) 2 % 0-4 ANC (test code = 753-4) 21.16 10*3/uL 1.88-7.09 H Lab Interpretation (test code = 01408-8) Abnormal [facility] WITH [id number] 19:27:30* Test Item Value Reference Range Interpretation [...] g/dL 31.6-35.1 H RDW-SD (test code = 63629-1) 45.8 fL 39.0-49.9 RDW-CV (test code = 788-0) 14.4 % 12.0-15.5 PLT (test code = 777-3) See_Comment H [Automated message] The system which generated this result transmitted reference range: 166 - 358 10*3/?L. The reference range was not used to interpret this result as normal/abnormal. MPV (test code = 72373-5) 10.4 fL 9.5-12.9 NRBC/100 WBC (test code = 3209474608) See_Comment [Automated message] The system which generated this result transmitted reference range: 0.0 - 10.0 /100 WBCs. The reference range was not used to interpret this result as normal/abnormal. NRBC x10^3 (test code = 6568606231) See_Comment [Automated message] The system which generated this result transmitted reference range: 10*3/?L. The reference range was not used to interpret this result as normal/abnormal. SEG % (test code = 00252-9) 84 % 33-76 H BAND % (test code = 34040-3) 8 % 0-1 H MYELO % (test code = 29128-9) 2 % See_Comment H [Automated message] The system which generated this result transmitted reference range: <=0. The reference range was not used to interpret this result as normal/abnormal. LYMPH % (test code = 39896-6) 4 % 14-54 L MONO % (test code = 78900-9) 2 % 0-4 ANC (test code = 753-4) 21.16 10*3/uL 1.88-7.09 H Lab Interpretation (test code = 23292-1) Abnormal [facility] METABOLIC PANEL (NA, K, CL, CO2, GLUCOSE, BUN, CREATININE, CA)2021-10-21 19:20:26* Test Item Value Reference Range Interpretation Comme nts NA (test code = 2624623544) 125 mmol/L 135-145 L K (test code = 7795761521) 4.4 mmol/L 3.5-5.0 Slight hemolysis CL (test code = 6053399406) 98 mmol/L 98-108 CO2 TOTAL (test code = 2916559557) 19 mmol/L 23-31 L AGAP (test code = 7730483769) 2-16 BUN (test code = 5718688362) 21 mg/dL 7-23 Slight hemolysis GLUCOSE (test code = 9550789087) 155 mg/dL 70-110 H CREATININE (test code = 9279261606) 0.63 mg/dL 0.50-1.04 CALCIUM (test code = 9282979196) 6.9 mg/dL 8.6-10.6 L eGFR (test code = 7528193994) mL/min/1.73m2 LUCILLE (test code = LUCILLE) Association [...] imaging tests). Lab Interpretation (test code = 48010-7) Abnormal [facility] METABOLIC PANEL (NA, K, CL, CO2, GLUCOSE, BUN, CREATININE, CA)2021-10-21 19:20:26* Test Item Value Reference Range Interpretation Comme nts NA (test code = 0023544904) 125 mmol/L 135-145 L K (test code = 5475768996) 4.4 mmol/L 3.5-5.0 Slight hemolysis CL (test code = 3192455046) 98 mmol/L 98-108 CO2 TOTAL (test code = 3129717768) 19 mmol/L 23-31 L AGAP (test code = 8620974652) 2-16 BUN (test code = 6071126573) 21 mg/dL 7-23 Slight hemolysis GLUCOSE (test code = 7866012994) 155 mg/dL 70-110 H CREATININE (test code = 4929557354) 0.63 mg/dL 0.50-1.04 CALCIUM (test code = 1946806132) 6.9 mg/dL 8.6-10.6 L eGFR (test code = 4341281492) mL/min/1.73m2 LUCILLE (test code = LUCILLE) Association [...] imaging tests). Lab Interpretation (test code = 03799-1) [facility] 19:12:03* Test Item Value Reference Range Interpretation Comme [facility] Fibrinogen (test code = 8937213925) 585 mg/dL 167-453 H Lab Interpretation (test cod e = 08087-1) [facility]normal [facility] / [id number] 19:12:03* Test Item Value Reference Range Interpretation Comme [facility] PROTIME PATIENT (test code = 5964-2) See_Comment H [Automated FUJIAN HAIYUAN] The system which generated this result transmitted reference range: 10.1 - 12.6 Seconds. The reference range was not used to interpret this result as normal/abnormal. INR (test code = 6301-6) Normal INR <1.1; Warfarin Therapeutic range 2.0 to 3.0 or 2.5 to 3.5, depending upon the indications. Lab Interpretation (test code = 58976-6) [facility] 19:12:03* Test Item Value Reference Range Interpretation Comme nts Fibrinogen (test code = 5066994775) 585 mg/dL 167-453 H Lab Interpretation (test cod e = 89825-9) [facility]normal [facility] / [id number] 19:12:03* Test Item Value Reference Range Interpretation Comme nts PROTIME PATIENT (test code = 5964-2) See_Comment H [Automated Jellynotea ge] The system which generated this result transmitted reference range: 10.1 - 12.6 Seconds. The reference range was not used to interpret this result as normal/abnormal. INR (test code = 6301-6) Normal INR <1.1; Warfarin Therapeutic range 2.0 to 3.0 or 2.5 to 3.5, depending upon the indications. Lab Interpretation (test code = 92764-3) [facility]normal [facility] [id number] 04:54:18* Test Item Value Reference Range Interpretation Comme [facility] URIC ACID (test code = 8472595096) 4.3 mg/dL 2.9-6.0 Lab Interpretation (test cod e = 01126-8) Normal [facility] [id number] 04:54:18* Test Item Value Reference Range Interpretation Comme [facility] URIC ACID (test code = 5138750848) 4.3 mg/dL 2.9-6.0 Lab Interpretation (test cod e = 76143-0) Normal [facility] (TTE)2021-10-20 20:54:06* Test Item Value Reference Range Interpretation Comme [facility] EF(Teich) (test code = 9707751590) 63.80 % LVIDD (test code = 9586736074) 4.40 cm LVIDS (test code = 4280832053) 2.90 cm IVS (test code = 3473490919) 0.86 cm LVPWD (test code = 0648307878) 0.86 cm LVOT diameter (test code = 1290551005) 2.00 cm FS (test code = 3786848408) 35 % LA size (test code = 4716178193) 3.4 cm LAV(MOD-sp4) (test code = 8394622173) 41.40 mL Ao root annulus (test code = 1381076112) 2.44 cm Ao root diam (test code = 0778057749) 2.44 cm Aortic root (test code = 5285681554) 2.44 cm PW (test code = 5851545601) 0.86 cm 0.6-1.1 EF - 2D (test code = 68562569) 63.80 % Interventricular Septum Diastolic Thickness by 2D (test code = 4353399) 0.86 cm Radiology Study observation (narrative) (test code = 96257-0) LUCILLE (test code = LUCILLE) ?Left?Ventricle: Left [...] [facility]2021-10-20 20:54:06* Test Item Value Reference Range Interpretation Comme nts EF(Teich) (test code = 4257480631) 63.80 % LVIDD (test code = 2728647248) 4.40 cm LVIDS (test code = 7719738704) 2.90 cm IVS (test code = 9230454996) 0.86 cm LVPWD (test code = 2932293116) 0.86 cm LVOT diameter (test code = 4883087932) 2.00 cm FS (test code = 4386944214) 35 % LA size (test code = 3090951922) 3.4 cm LAV(MOD-sp4) (test code = 0138993645) 41.40 mL Ao root annulus (test code = 2994454761) 2.44 cm Ao root diam (test code = 9374887935) 2.44 cm Aortic root (test code = 2030773373) 2.44 cm PW (test code = 3175375028) 0.86 cm 0.6-1.1 EF - 2D (test code = 24090627) 63.80 % Interventricular Septum Diastolic Thickness by 2D (test code = 6575293) 0.86 cm Radiology Study observation (narrative) (test code = 22324-4) LUCILLE (test code = LUCILLE) ?Left?Ventricle: Left ventricle is normal in size and function. Normal wall thickness. Normal systolic function with a visually estimated EF of 55 - 60%. ?Aortic?Valve: Aortic valve is normal in structure and function. ?Mitral?Valve: Mitral valve is normal in structure and function. VitalsHeight Weight BSA (Calculated - sq m) BP Pulse 60 220lb ? ?114/63 81 [facility] WITH [id number] 11:09:20* Test Item Value Reference Range Interpretation [...] 31.9 g/dL 31.6-35.1 RDW-SD (test code = 29399-3) 46.3 fL 39.0-49.9 RDW-CV (test code = 788-0) 14.5 % 12.0-15.5 PLT (test code = 777-3) See_Comment [Automated message] The system which generated this result transmitted reference range: 166 - 358 10*3/?L. The reference range was not used to interpret this result as normal/abnormal. MPV (test code = 05885-0) 9.9 fL 9.5-12.9 NRBC/100 WBC (test code = 1123844327) See_Comment [Automated message] The system which generated this result transmitted reference range: 0.0 - 10.0 /100 WBCs. The reference range was not used to interpret this result as normal/abnormal. NRBC x10^3 (test code = 6235864577) <0.01 See_Comment [Automated message] The system which generated this result transmitted reference range: 10*3/?L. The reference range was not used to interpret this result as normal/abnormal. GRAN MAT (NEUT) % (test code = 770-8) 89.9 % IMM GRAN % (test code = 3963394013) 2.90 % LYMPH % (test code = 736-9) 4.2 % MONO % (test code = 5905-5) 2.9 % EOS % (test code = 713-8) 0.0 % BASO % (test code = 706-2) 0.1 % GRAN MAT x10^3(ANC) (test code = 4538271120) 14.51 10*3/uL 1.88-7.09 H IMM GRAN x10^3 (test code = 6953690197) 0.46 10*3/uL 0.00-0.06 H LYMPH x10^3 (test code = 731-0) 0.67 10*3/uL 1.32-3.29 L MONO x10^3 (test code = 742-7) 0.47 10*3/uL 0.33-0.92 EOS x10^3 (test code = 711-2) <0.03 0.03-0.39 L BASO x10^3 (test code = 704-7) <0.03 0.01-0.07 TOXIC CHANGES (test code = 803-7) Present A Lab Interpretation (test code = 19999-6) Abnormal [facility] WITH [id number] 11:09:20* Test Item Value Reference Range Interpretation [...] 31.9 g/dL 31.6-35.1 RDW-SD (test code = 70758-8) 46.3 fL 39.0-49.9 RDW-CV (test code = 788-0) 14.5 % 12.0-15.5 PLT (test code = 777-3) See_Comment [Automated message] The system which generated this result transmitted reference range: 166 - 358 10*3/?L. The reference range was not used to interpret this result as normal/abnormal. MPV (test code = 56998-2) 9.9 fL 9.5-12.9 NRBC/100 WBC (test code = 1309760085) See_Comment [Automated message] The system which generated this result transmitted reference range: 0.0 - 10.0 /100 WBCs. The reference range was not used to interpret this result as normal/abnormal. NRBC x10^3 (test code = 2641516063) <0.01 See_Comment [Automated message] The system which generated this result transmitted reference range: 10*3/?L. The reference range was not used to interpret this result as normal/abnormal. GRAN MAT (NEUT) % (test code = 770-8) 89.9 % IMM GRAN % (test code = 8670382393) 2.90 % LYMPH % (test code = 736-9) 4.2 % MONO % (test code = 5905-5) 2.9 % EOS % (test code = 713-8) 0.0 % BASO % (test code = 706-2) 0.1 % GRAN MAT x10^3(ANC) (test code = 2066390159) 14.51 10*3/uL 1.88-7.09 H IMM GRAN x10^3 (test code = 7152235355) 0.46 10*3/uL 0.00-0.06 H LYMPH x10^3 (test code = 731-0) 0.67 10*3/uL 1.32-3.29 L MONO x10^3 (test code = 742-7) 0.47 10*3/uL 0.33-0.92 EOS x10^3 (test code = 711-2) <0.03 0.03-0.39 L BASO x10^3 (test code = 704-7) <0.03 0.01-0.07 TOXIC CHANGES (test code = 803-7) Present A Lab Interpretation (test code = 42596-5) Abnormal [facility] METABOLIC PANEL (NA, K, CL, CO2, GLUCOSE, BUN, CREATININE, CA)2021-10-20 10:55:22* Test Item Value Reference Range Interpretation Comme nts NA (test code = 8982391515) 136 mmol/L 135-145 K (test code = 6050107039) 4.1 mmol/L 3.5-5.0 CL (test code = 9510913480) 108 mmol/L 98-108 CO2 TOTAL (test code = 9608717791) 25 mmol/L 23-31 AGAP (test code = 8495174921) 2-16 BUN (test code = 8722461560) 23 mg/dL 7-23 GLUCOSE (test code = 5139613849) 134 mg/dL 70-110 H CREATININE (test code = 0143169496) 0.67 mg/dL 0.50-1.04 CALCIUM (test code = 8422021437) 7.5 mg/dL 8.6-10.6 L eGFR (test code = 7552323344) mL/min/1.73m2 LUCILLE (test code = LUCILLE) Association [...] imaging tests). Lab Interpretation (test code = 45358-8) Abnormal [facility] METABOLIC PANEL (NA, K, CL, CO2, GLUCOSE, BUN, CREATININE, CA)2021-10-20 10:55:22* Test Item Value Reference Range Interpretation Comme nts NA (test code = 7542891936) 136 mmol/L 135-145 K (test code = 1787745097) 4.1 mmol/L 3.5-5.0 CL (test code = 5256268806) 108 mmol/L 98-108 CO2 TOTAL (test code = 0753177900) 25 mmol/L 23-31 AGAP (test code = 6997809597) 2-16 BUN (test code = 1942745087) 23 mg/dL 7-23 GLUCOSE (test code = 9118663409) 134 mg/dL 70-110 H CREATININE (test code = 5156537675) 0.67 mg/dL 0.50-1.04 CALCIUM (test code = 6950200267) 7.5 mg/dL 8.6-10.6 L eGFR (test code = 0254041513) mL/min/1.73m2 LUCILLE (test code = LUCILLE) Association [...] imaging tests). Lab Interpretation (test code = 40781-3) Abnormal [facility] [id number] 21:49:45* Test Item Value Reference Range Interpretation Comme nts ANTI-DSDNA (test code = 9513647648) See_Comment [Automated message] The system which generated this result transmitted reference range: 0.0 - 4.0 IU/mL. The reference range was not used to interpret this result as normal/abnormal. LUCILLE (test code = LUCILLE) Negative ? ?< or = 4 IU/mLPositive ? ? ?> or = 10 IU/mLIndetermin ate ?5-9 IU/mL Lab Interpretation (test code = 79546-0) Normal [facility] [id number] 21:49:45* Test Item Value Reference Range Interpretation Comme nts ANTI-DSDNA (test code = 2351942562) See_Comment [Automated message] The system which generated this result transmitted reference range: 0.0 - 4.0 IU/mL. The reference range was not used to interpret this result as normal/abnormal. LUCILLE (test code = LUCILLE) Negative ? ?< or = 4 IU/mLPositive ? ? ?> or = 10 IU/mLIndetermin ate ?5-9 IU/mL Lab Interpretation (test code = 63792-7) [facility] [id number] 21:43:06* Test Item Value Reference Range Interpretation Comme nts RF (test code = 0301529689) <20 See_Comment [Automated messa ge] The system which generated this result transmitted reference range: <20 IU/mL. The reference range was not used to interpret this result as normal/abnormal. Lab Interpretation (test code = 19044-6) [facility] [id number] 21:43:06* Test Item Value Reference Range Interpretation Comme nts RF (test code = 0044620216) <20 See_Comment [Automated messa ge] The system which generated this result transmitted reference range: <20 IU/mL. The reference range was not used to interpret this result as normal/abnormal. Lab Interpretation (test code = 95883-2) Normal [facility] [id number] 20:22:55 * Test Item Value Reference Range Interpretation Comme nts SHIRA Titer by IFA (test code = 4020572866) <=1:80 SHIRA Pattern (test code = 7778711569) SHIRA screen was positive at the 1:80 [...] specimen will be held for 7 days. [facility] [id number] 20:22:55 * Test Item Value Reference Range Interpretation Comme nts SHIRA Titer by IFA (test code = 5705900692) <=1:80 SHIRA Pattern (test code = 5583695759) SHIRA screen was positive at the 1:80 [...] specimen will be held for 7 days. [facility] [id number] 18:12:04* Test Item Value Reference Range Interpretation Comme nts Myeloperoxidase (MPO) Antibodies, IgG Interpretation (test code = 61952-8) Negative Negative Proteinase 3 (PR3) Antibodies, IgG Interpretation (test code = 20195-9) Negative Negative Myeloperoxidase (MPO) Antibodies, IgG (test code = 1453245209) <0.3 See_Comment [Automated message] The system which generated this result transmitted reference range: <=3.5 U/mL. The reference range was not used to interpret this result as normal/abnormal. Proteinase 3 (PR3) Antibodies, IgG (test code = 4706387446) <0.7 See_Comment [Automated message] The system which [...] 12 weeks. Lab Interpretation (test code = 10761-9) Normal [facility] [id number] 18:12:04* Test Item Value Reference Range Interpretation Comme nts Myeloperoxidase (MPO) Antibodies, IgG Interpretation (test code = 28280-8) Negative Negative Proteinase 3 (PR3) Antibodies, IgG Interpretation (test code = 29915-5) Negative Negative Myeloperoxidase (MPO) Antibodies, IgG (test code = 5323642515) <0.3 See_Comment [Automated message] The system which generated this result transmitted reference range: <=3.5 U/mL. The reference range was not used to interpret this result as normal/abnormal. Proteinase 3 (PR3) Antibodies, IgG (test code = 9867782740) <0.7 See_Comment [Automated message] The system which [...] 12 weeks. Lab Interpretation (test code = 49681-6) [facility] Test Item Value Reference Range Interpretation Comme nts MAGNESIUM (test code = 5709289729) 2.9 mg/dL 1.7-2.4 H Lab Interpretation (test cod e = 91073-3) [facility]:47:[facility]* Test Item Value Reference Range Interpretation Comme nts MAGNESIUM (test code = 7460593888) 2.9 mg/dL 1.7-2.4 H Lab Interpretation (test cod e = 76744-9) Abnormal [facility] WITH [id number] 09:31:49* Test Item Value Reference Range Interpretation [...] 32.8 g/dL 31.6-35.1 RDW-SD (test code = 03579-5) 45.5 fL 39.0-49.9 RDW-CV (test code = 788-0) 14.4 % 12.0-15.5 PLT (test code = 777-3) See_Comment [Automated message] The system which generated this result transmitted reference range: 166 - 358 10*3/?L. The reference range was not used to interpret this result as normal/abnormal. MPV (test code = 47865-8) 10.0 fL 9.5-12.9 NRBC/100 WBC (test code = 8334518273) See_Comment [Automated message] The system which generated this result transmitted reference range: 0.0 - 10.0 /100 WBCs. The reference range was not used to interpret this result as normal/abnormal. NRBC x10^3 (test code = 6137480249) <0.01 See_Comment [Automated message] The system which generated this result transmitted reference range: 10*3/?L. The reference range was not used to interpret this result as normal/abnormal. GRAN MAT (NEUT) % (test code = 770-8) 93.4 % IMM GRAN % (test code = 6294690113) 1.50 % LYMPH % (test code = 736-9) 2.4 % MONO % (test code = 5905-5) 2.6 % EOS % (test code = 713-8) 0.0 % BASO % (test code = 706-2) 0.1 % GRAN MAT x10^3(ANC) (test code = 4477588323) 17.74 10*3/uL 1.88-7.09 H IMM GRAN x10^3 (test code = 5979940326) 0.28 10*3/uL 0.00-0.06 H LYMPH x10^3 (test code = 731-0) 0.46 10*3/uL 1.32-3.29 L MONO x10^3 (test code = 742-7) 0.50 10*3/uL 0.33-0.92 EOS x10^3 (test code = 711-2) <0.03 0.03-0.39 L BASO x10^3 (test code = 704-7) <0.03 0.01-0.07 TOXIC CHANGES (test code = 803-7) Present A Lab Interpretation (test code = 37216-7) Abnormal [facility] WITH [id number] 09:31:49* Test Item Value Reference Range Interpretation [...] 32.8 g/dL 31.6-35.1 RDW-SD (test code = 16732-1) 45.5 fL 39.0-49.9 RDW-CV (test code = 788-0) 14.4 % 12.0-15.5 PLT (test code = 777-3) See_Comment [Automated message] The system which generated this result transmitted reference range: 166 - 358 10*3/?L. The reference range was not used to interpret this result as normal/abnormal. MPV (test code = 86579-4) 10.0 fL 9.5-12.9 NRBC/100 WBC (test code = 7089496790) See_Comment [Automated message] The system which generated this result transmitted reference range: 0.0 - 10.0 /100 WBCs. The reference range was not used to interpret this result as normal/abnormal. NRBC x10^3 (test code = 3631572668) <0.01 See_Comment [Automated message] The system which generated this result transmitted reference range: 10*3/?L. The reference range was not used to interpret this result as normal/abnormal. GRAN MAT (NEUT) % (test code = 770-8) 93.4 % IMM GRAN % (test code = 2197051729) 1.50 % LYMPH % (test code = 736-9) 2.4 % MONO % (test code = 5905-5) 2.6 % EOS % (test code = 713-8) 0.0 % BASO % (test code = 706-2) 0.1 % GRAN MAT x10^3(ANC) (test code = 2596776170) 17.74 10*3/uL 1.88-7.09 H IMM GRAN x10^3 (test code = 3106239524) 0.28 10*3/uL 0.00-0.06 H LYMPH x10^3 (test code = 731-0) 0.46 10*3/uL 1.32-3.29 L MONO x10^3 (test code = 742-7) 0.50 10*3/uL 0.33-0.92 EOS x10^3 (test code = 711-2) <0.03 0.03-0.39 L BASO x10^3 (test code = 704-7) <0.03 0.01-0.07 TOXIC CHANGES (test code = 803-7) Present A Lab Interpretation (test code = 29606-7) Abnormal [facility] METABOLIC PANEL (NA, K, CL, CO2, GLUCOSE, BUN, CREATININE, CA)2021-10-19 09:25:48* Test Item Value Reference Range Interpretation Comme nts NA (test code = 7402637202) 144 mmol/L 135-145 K (test code = 2271842012) 4.5 mmol/L 3.5-5.0 CL (test code = 5042415270) 111 mmol/L 98-108 H CO2 TOTAL (test code = 3245952668) 27 mmol/L 23-31 AGAP (test code = 0121789262) 2-16 BUN (test code = 1408260150) 30 mg/dL 7-23 H GLUCOSE (test code = 2247245145) 159 mg/dL 70-110 H CREATININE (test code = 0320494538) 0.81 mg/dL 0.50-1.04 CALCIUM (test code = 8142351397) 8.2 mg/dL 8.6-10.6 L eGFR (test code = 7721709291) mL/min/1.73m2 LUCILLE (test code = LUCILLE) Association [...] imaging tests). Lab Interpretation (test code = 78101-4) Abnormal [facility] METABOLIC PANEL (NA, K, CL, CO2, GLUCOSE, BUN, CREATININE, CA)2021-10-19 09:25:48* Test Item Value Reference Range Interpretation Comme nts NA (test code = 7124509510) 144 mmol/L 135-145 K (test code = 8691821225) 4.5 mmol/L 3.5-5.0 CL (test code = 7249090718) 111 mmol/L 98-108 H CO2 TOTAL (test code = 1419764173) 27 mmol/L 23-31 AGAP (test code = 9982898176) 2-16 BUN (test code = 5000525691) 30 mg/dL 7-23 H GLUCOSE (test code = 9530475745) 159 mg/dL 70-110 H CREATININE (test code = 4825268327) 0.81 mg/dL 0.50-1.04 CALCIUM (test code = 2882158379) 8.2 mg/dL 8.6-10.6 L eGFR (test code = 0984583104) mL/min/1.73m2 LUCILLE (test code = LUCILLE) Association [...] imaging tests). Lab Interpretation (test code = 01439-1) Abnormal [facility] GLUCOSE (AUTOMATED)2021-10-19 02:29:39* Test Item Value Reference Range Interpretation Comme nts POCT GLU (test code = 5709368003) 159 mg/dL 70-110 H Lab Interpretation (test cod e = 57521-5) Abnormal [facility] GLUCOSE (AUTOMATED)2021-10-19 02:29:39* Test Item Value Reference Range Interpretation Comme nts POCT GLU (test code = 8799890811) 159 mg/dL 70-110 H Lab Interpretation (test cod e = 81484-8) [facility] [id number] 22:06:05* Test Item Value Reference Range Interpretation Comme nts SHIRA (test code = 6879398142) Positive Negative A LUCILLE (test code = LUCILLE) Negative - No Anti-Nuclear Antibodies detected by IFA.Positive - SHIRA IFA screen performed with a 1:80 dilution in adults and a 1:40 dilution in pediatrics. Any SHIRA "Positive" will have titer performed and reported separately. Lab Interpretation (test code = 22949-6) [facility] [id number] 22:06:05* Test Item Value Reference Range Interpretation Comme nts SHIRA (test code = 1791630173) Positive Negative A LUCILLE (test code = LUCILLE) Negative - No Anti-Nuclear Antibodies detected by IFA.Positive - SHIRA IFA screen performed with a 1:80 dilution in adults and a 1:40 dilution in pediatrics. Any SHIRA "Positive" will have titer performed and reported separately. Lab Interpretation (test code = 49711-6) [facility] (A1C)2021-10-18 17:16:16* Test Item Value Reference Range Interpretation Comme nts HGB A1C (test code = 4548-4) 6.0 % 4.0-5.7 H LUCILLE (test code = LUCILLE) Reference RangesNormal: <5.7%Prediabetes: 5.7 - 6.4%Diabetes: > 6.5% Lab Interpretation (test code = 13434-9) [facility] (A1C)2021-10-18 17:16:16* Test Item Value Reference Range Interpretation Comme nts HGB A1C (test code = 4548-4) 6.0 % 4.0-5.7 H LUCILLE (test code = LUCILLE) Reference RangesNormal: <5.7%Prediabetes: 5.7 - 6.4%Diabetes: > 6.5% Lab Interpretation (test code = 42997-4) Abnormal [facility] WITH [id number] 10:21:29* Test Item Value Reference Range Interpretation [...] 33.4 g/dL 31.6-35.1 RDW-SD (test code = 82585-1) 44.0 fL 39.0-49.9 RDW-CV (test code = 788-0) 14.1 % 12.0-15.5 PLT (test code = 777-3) See_Comment [Automated message] The system which generated this result transmitted reference range: 166 - 358 10*3/?L. The reference range was not used to interpret this result as normal/abnormal. MPV (test code = 05934-8) 10.5 fL 9.5-12.9 NRBC/100 WBC (test code = 4415199084) See_Comment [Automated message] The system which generated this result transmitted reference range: 0.0 - 10.0 /100 WBCs. The reference range was not used to interpret this result as normal/abnormal. NRBC x10^3 (test code = 7027953984) <0.01 See_Comment [Automated message] The system which generated this result transmitted reference range: 10*3/?L. The reference range was not used to interpret this result as normal/abnormal. GRAN MAT (NEUT) % (test code = 770-8) 94.3 % IMM GRAN % (test code = 6471582618) 1.00 % LYMPH % (test code = 736-9) 2.1 % MONO % (test code = 5905-5) 2.5 % EOS % (test code = 713-8) 0.0 % BASO % (test code = 706-2) 0.1 % GRAN MAT x10^3(ANC) (test code = 5423655793) 18.69 10*3/uL 1.88-7.09 H IMM GRAN x10^3 (test code = 8629668939) 0.20 10*3/uL 0.00-0.06 H LYMPH x10^3 (test code = 731-0) 0.42 10*3/uL 1.32-3.29 L MONO x10^3 (test code = 742-7) 0.50 10*3/uL 0.33-0.92 EOS x10^3 (test code = 711-2) <0.03 0.03-0.39 L BASO x10^3 (test code = 704-7) <0.03 0.01-0.07 TOXIC CHANGES (test code = 803-7) Present A Lab Interpretation (test code = 98283-3) Abnormal [facility] WITH [id number] 10:21:29* Test Item Value Reference Range Interpretation [...] 33.4 g/dL 31.6-35.1 RDW-SD (test code = 46983-1) 44.0 fL 39.0-49.9 RDW-CV (test code = 788-0) 14.1 % 12.0-15.5 PLT (test code = 777-3) See_Comment [Automated message] The system which generated this result transmitted reference range: 166 - 358 10*3/?L. The reference range was not used to interpret this result as normal/abnormal. MPV (test code = 99882-0) 10.5 fL 9.5-12.9 NRBC/100 WBC (test code = [id number]) See_Comment [Automated message] The system which generated this result transmitted reference range: 0.0 - 10.0 /100 WBCs. The reference range was not used to interpret this result as normal/abnormal. NRBC x10^3 (test code = 4884461242) <0.01 See_Comment [Automated message] The system which generated this result transmitted reference range: 10*3/?L. The reference range was not used to interpret this result as normal/abnormal. GRAN MAT (NEUT) % (test code = 770-8) 94.3 % IMM GRAN % (test code = 0566496631) 1.00 % LYMPH % (test code = 736-9) 2.1 % MONO % (test code = 5905-5) 2.5 % EOS % (test code = 713-8) 0.0 % BASO % (test code = 706-2) 0.1 % GRAN MAT x10^3(ANC) (test code = 5546464690) 18.69 10*3/uL 1.88-7.09 H IMM GRAN x10^3 (test code = 2027848322) 0.20 10*3/uL 0.00-0.06 H LYMPH x10^3 (test code = 731-0) 0.42 10*3/uL 1.32-3.29 L MONO x10^3 (test code = 742-7) 0.50 10*3/uL 0.33-0.92 EOS x10^3 (test code = 711-2) <0.03 0.03-0.39 L BASO x10^3 (test code = 704-7) <0.03 0.01-0.07 TOXIC CHANGES (test code = 803-7) Present A Lab Interpretation (test code = 09551-0) Abnormal [facility] METABOLIC PANEL (NA, K, CL, CO2, GLUCOSE, BUN, CREATININE, CA)2021-10-18 09:49:57* Test Item Value Reference Range Interpretation Comme nts NA (test code = 6279079040) 141 mmol/L 135-145 K (test code = 7355859532) 4.9 mmol/L 3.5-5.0 CL (test code = 5017422680) 107 mmol/L 98-108 CO2 TOTAL (test code = 1545889115) 26 mmol/L 23-31 AGAP (test code = 8979431434) 2-16 BUN (test code = 8998164846) 30 mg/dL 7-23 H GLUCOSE (test code = 3853400524) 166 mg/dL 70-110 H CREATININE (test code = 0017516076) 0.76 mg/dL 0.50-1.04 CALCIUM (test code = 0439148770) 8.2 mg/dL 8.6-10.6 L eGFR (test code = 6244290665) mL/min/1.73m2 LUCILLE (test code = LUCILLE) Association [...] imaging tests). Lab Interpretation (test code = 50805-1) [facility] 09:[facility]:57* Test Item Value Reference Range Interpretation Comme nts MAGNESIUM (test code = 5294175190) 3.0 mg/dL 1.7-2.4 H Lab Interpretation (test cod e = 67492-6) [facility] 09:49:57* Test Item Value Reference Range Interpretation Comme nts PHOSPHORUS (test code = 6525796434) 4.0 mg/dL 2.5-5.0 Lab Interpretation (test cod e = 90529-6) [facility] (NA, K, CL, CO2, GLUCOSE, BUN, CREATININE, CA)2021-10-18 09:49:57* Test Item Value Reference Range Interpretation Comme nts NA (test code = 1857176656) 141 mmol/L 135-145 K (test code = 7425739638) 4.9 mmol/L 3.5-5.0 CL (test code = 4659832094) 107 mmol/L 98-108 CO2 TOTAL (test code = 5430974785) 26 mmol/L 23-31 AGAP (test code = 8837190393) 2-16 BUN (test code = 1203246731) 30 mg/dL 7-23 H GLUCOSE (test code = 0907097020) 166 mg/dL 70-110 H CREATININE (test code = 4470774990) 0.76 mg/dL 0.50-1.04 CALCIUM (test code = 6983541244) 8.2 mg/dL 8.6-10.6 L eGFR (test code = 0382315015) mL/min/1.73m2 LUCILLE (test code = LUCILLE) Association [...] imaging tests). Lab Interpretation (test code = 02859-8) [facility] 09:49:57* Test Item Value Reference Range Interpretation Comme nts MAGNESIUM (test code = 4110079855) 3.0 mg/dL 1.7-2.4 H Lab Interpretation (test cod e = 05641-3) [facility] 09:49:57* Test Item Value Reference Range Interpretation Comme nts PHOSPHORUS (test code = 1168491683) 4.0 mg/dL 2.5-5.0 Lab Interpretation (test cod e = 44915-7) Normal [facility] 1/2 AG-AB WITH [id number] 02:31:06* Test Item Value Reference Range Interpretation Comme nts HIV Semi-quantitative (test code = 25840-8) Negative Negative LUCILLE (test code = LUCILLE) Non-reactive for HIV-1 antigen and HIV-1/HIV-2 antibodies. ?No laboratory evidence of HIV infection. ?Repeat in 2-4 weeks if acute HIV infection is suspected. [facility] 1/2 AG-AB WITH [id number] 02:31:06* Test Item Value Reference Range Interpretation Comme nts HIV Semi-quantitative (test code = 17381-3) Negative Negative LUCILLE (test code = LUCILLE) Non-reactive for HIV-1 antigen and HIV-1/HIV-2 antibodies. ?No laboratory evidence of HIV infection. ?Repeat in 2-4 weeks if acute HIV infection is suspected. [facility] METABOLIC PANEL (NA, K, CL, CO2, GLUCOSE, BUN, CREATININE, CA)2021-10-18 01:11:26* Test Item Value Reference Range Interpretation Comme nts NA (test code = 9029159113) 141 mmol/L 135-145 K (test code = 6864852789) 4.6 mmol/L 3.5-5.0 CL (test code = 0219638055) 106 mmol/L 98-108 CO2 TOTAL (test code = 7431434651) 26 mmol/L 23-31 AGAP (test code = 0117679137) 2-16 BUN (test code = 0012787718) 28 mg/dL 7-23 H GLUCOSE (test code = 7242038923) 180 mg/dL 70-110 H CREATININE (test code = 5509912284) 0.82 mg/dL 0.50-1.04 CALCIUM (test code = 8356172639) 8.3 mg/dL 8.6-10.6 L eGFR (test code = 9919815782) mL/min/1.73m2 LUCILLE (test code = LUCILLE) Association [...] imaging tests). Lab Interpretation (test code = 48270-1) Abnormal [facility] METABOLIC PANEL (NA, K, CL, CO2, GLUCOSE, BUN, CREATININE, CA)2021-10-18 01:11:26* Test Item Value Reference Range Interpretation Comme nts NA (test code = 6278860461) 141 mmol/L 135-145 K (test code = 9147075475) 4.6 mmol/L 3.5-5.0 CL (test code = 4061959061) 106 mmol/L 98-108 CO2 TOTAL (test code = 2805716954) 26 mmol/L 23-31 AGAP (test code = 7746409506) 2-16 BUN (test code = 3483044756) 28 mg/dL 7-23 H GLUCOSE (test code = 2432360886) 180 mg/dL 70-110 H CREATININE (test code = 5358976741) 0.82 mg/dL 0.50-1.04 CALCIUM (test code = 0928727782) 8.3 mg/dL 8.6-10.6 L eGFR (test code = 7982151599) mL/min/1.73m2 LUCILLE (test code = LUCILLE) Association [...] imaging tests). Lab Interpretation (test code = 19128-8) [facility] [id number] 22:06:03* Test Item Value Reference Range Interpretation Comme nts NT-proBNP (test code = 1922401030) 250 pg/mL See_Comment H [Automated message] The system which generated this result transmitted reference range: <=125. The reference range was not used to interpret this result as normal/abnormal. LUCILLE (test code = LUCILLE) Biotin has been reported to cause a negative bias, interpret results relative to patient's use of biotin. Lab Interpretation (test code = 90889-6) [facility] [id number] 22:06:03* Test Item Value Reference Range Interpretation Comme nts NT-proBNP (test code = 7180072445) 250 pg/mL See_Comment H [Automated message] The system which generated this result transmitted reference range: <=125. The reference range was not used to interpret this result as normal/abnormal. LUCILLE (test code = LUCILLE) Biotin has been reported to cause a negative bias, interpret results relative to patient's use of biotin. Lab Interpretation (test code = 29060-0) [facility]+NA+K+GLU+CA2+2021-10-17 21:42:22* Test Item Value Reference Range Interpretation Comme nts PH (test code = 2) 7.35-7.45 PCO2 (test code = 8050656103) See_Comment [Automated messa ge] The system which generated this result transmitted reference range: 35 - 45 mmHg. The reference range was not used to interpret this result as normal/abnormal. PO2 (test code = 8537854105) See_Comment H [Automated messa ge] The system which generated this result transmitted reference range: 80 - 100 mmHg. The reference range was not used to interpret this result as normal/abnormal. HCO3 (test code = 3149771409) See_Comment [Automated messa ge] The system which generated this result transmitted reference range: 22 - 26 mEq/L. The reference range was not used to interpret this result as normal/abnormal. BE (test code = 8725085460) See_Comment [Automated messa ge] The system which generated this result transmitted reference range: -3.0 - 3.0 mEq/L. The reference range was not used to interpret this result as normal/abnormal. THB (test code = 6697690555) 13.0 g/dL 12.0-16.0 %O2HB (test code = 3891380313) 98.9 % 94.0-99.0 %COHB ART (test code = 1795563914) 0.3 % 0.0-1.5 %METHB ART (test code = 7209106070) 0.0 % 0.4-1.5 L VOL%O2 ART (test code = 4971278072) 18.5 % 15.0-23.0 NA (test code = 5575575274) 139 mmol/L 135-145 K+ (test code = 3762077126) 4.6 mmol/L 3.5-5.0 AC CA IONZ (test code = 1198091690) 4.50 mg/dL 4.50-5.30 GLUCOSE (test code = 6547306358) 166 mg/dL 70-110 H Lab Interpretation (test code = 91823-6) [facility]NA+K+GLU+CA2+2021-10-17 21:42:22* Test Item Value Reference Range Interpretation Comme nts PH (test code = 2) 7.35-7.45 PCO2 (test code = 8769217526) See_Comment [Automated messa ge] The system which generated this result transmitted reference range: 35 - 45 mmHg. The reference range was not used to interpret this result as normal/abnormal. PO2 (test code = 7966147369) See_Comment H [Automated messa ge] The system which generated this result transmitted reference range: 80 - 100 mmHg. The reference range was not used to interpret this result as normal/abnormal. HCO3 (test code = 1859416841) See_Comment [Automated messa ge] The system which generated this result transmitted reference range: 22 - 26 mEq/L. The reference range was not used to interpret this result as normal/abnormal. BE (test code = 0682212329) See_Comment [Automated messa ge] The system which generated this result transmitted reference range: -3.0 - 3.0 mEq/L. The reference range was not used to interpret this result as normal/abnormal. THB (test code = 6985930742) 13.0 g/dL 12.0-16.0 %O2HB (test code = 8756053068) 98.9 % 94.0-99.0 %COHB ART (test code = 0081463378) 0.3 % 0.0-1.5 %METHB ART (test code = 6388777795) 0.0 % 0.4-1.5 L VOL%O2 ART (test code = 1408621597) 18.5 % 15.0-23.0 NA (test code = 9807466016) 139 mmol/L 135-145 K+ (test code = 0286428820) 4.6 mmol/L 3.5-5.0 AC CA IONZ (test code = 2671945091) 4.50 mg/dL 4.50-5.30 GLUCOSE (test code = 9361806540) 166 mg/dL 70-110 H Lab Interpretation (test code = 43535-1) Abnormal [facility] WITH [id number] 11:01:03* Test Item Value Reference Range Interpretation [...] 33.2 g/dL 31.6-35.1 RDW-SD (test code = 04818-0) 44.5 fL 39.0-49.9 RDW-CV (test code = 788-0) 14.1 % 12.0-15.5 PLT (test code = 777-3) See_Comment [Automated message] The system which generated this result transmitted reference range: 166 - 358 10*3/?L. The reference range was not used to interpret this result as normal/abnormal. MPV (test code = 27747-7) 11.0 fL 9.5-12.9 NRBC/100 WBC (test code = 1819666221) See_Comment [Automated message] The system which generated this result transmitted reference range: 0.0 - 10.0 /100 WBCs. The reference range was not used to interpret this result as normal/abnormal. NRBC x10^3 (test code = 7866619246) <0.01 See_Comment [Automated message] The system which generated this result transmitted reference range: 10*3/?L. The reference range was not used to interpret this result as normal/abnormal. GRAN MAT (NEUT) % (test code = 770-8) 91.6 % IMM GRAN % (test code = 5721871066) 1.40 % LYMPH % (test code = 736-9) 5.5 % MONO % (test code = 5905-5) 1.4 % EOS % (test code = 713-8) 0.0 % BASO % (test code = 706-2) 0.1 % GRAN MAT x10^3(ANC) (test code = 8237751261) 17.75 10*3/uL 1.88-7.09 H IMM GRAN x10^3 (test code = 8536996392) 0.27 10*3/uL 0.00-0.06 H LYMPH x10^3 (test code = 731-0) 1.06 10*3/uL 1.32-3.29 L MONO x10^3 (test code = 742-7) 0.28 10*3/uL 0.33-0.92 L EOS x10^3 (test code = 711-2) <0.03 0.03-0.39 L BASO x10^3 (test code = 704-7) <0.03 0.01-0.07 TOXIC CHANGES (test code = 803-7) Present A Lab Interpretation (test code = 46467-8) Abnormal [facility] WITH [id number] 11:01:03* Test Item Value Reference Range Interpretation [...] 33.2 g/dL 31.6-35.1 RDW-SD (test code = 65643-3) 44.5 fL 39.0-49.9 RDW-CV (test code = 788-0) 14.1 % 12.0-15.5 PLT (test code = 777-3) See_Comment [Automated message] The system which generated this result transmitted reference range: 166 - 358 10*3/?L. The reference range was not used to interpret this result as normal/abnormal. MPV (test code = 37998-5) 11.0 fL 9.5-12.9 NRBC/100 WBC (test code = 9710831467) See_Comment [Automated message] The system which generated this result transmitted reference range: 0.0 - 10.0 /100 WBCs. The reference range was not used to interpret this result as normal/abnormal. NRBC x10^3 (test code = 1645424552) <0.01 See_Comment [Automated message] The system which generated this result transmitted reference range: 10*3/?L. The reference range was not used to interpret this result as normal/abnormal. GRAN MAT (NEUT) % (test code = 770-8) 91.6 % IMM GRAN % (test code = 2660554420) 1.40 % LYMPH % (test code = 736-9) 5.5 % MONO % (test code = 5905-5) 1.4 % EOS % (test code = 713-8) 0.0 % BASO % (test code = 706-2) 0.1 % GRAN MAT x10^3(ANC) (test code = 8364251637) 17.75 10*3/uL 1.88-7.09 H IMM GRAN x10^3 (test code = 9513326651) 0.27 10*3/uL 0.00-0.06 H LYMPH x10^3 (test code = 731-0) 1.06 10*3/uL 1.32-3.29 L MONO x10^3 (test code = 742-7) 0.28 10*3/uL 0.33-0.92 L EOS x10^3 (test code = 711-2) <0.03 0.03-0.39 L BASO x10^3 (test code = 704-7) <0.03 0.01-0.07 TOXIC CHANGES (test code = 803-7) Present A Lab Interpretation (test code = 60027-2) Abnormal [facility] METABOLIC PANEL (NA, K, CL, CO2, GLUCOSE, BUN, CREATININE, CA)2021-10-17 10:54:32* Test Item Value Reference Range Interpretation Comme nts NA (test code = 2141590470) 135 mmol/L 135-145 K (test code = 8196495845) 5.2 mmol/L 3.5-5.0 H Slight hemolysis CL (test code = 8593347621) 101 mmol/L 98-108 CO2 TOTAL (test code = 5350296785) 27 mmol/L 23-31 AGAP (test code = 5535239118) 2-16 BUN (test code = 4607745461) 21 mg/dL 7-23 Slight hemolysis GLUCOSE (test code = 2869237008) 153 mg/dL 70-110 H CREATININE (test code = 3373971650) 0.71 mg/dL 0.50-1.04 CALCIUM (test code = 7795550995) 8.3 mg/dL 8.6-10.6 L eGFR (test code = 2098186728) mL/min/1.73m2 LUCILLE (test code = LUCILLE) Association [...] imaging tests). Lab Interpretation (test code = 74706-0) [facility] 10:54:32* Test Item Value Reference Range Interpretation Comme nts MAGNESIUM (test code = 8566200657) 2.2 mg/dL 1.7-2.4 Lab Interpretation (test cod e = 93333-9) [facility] 10:54:32* Test Item Value Reference Range Interpretation Comme nts PHOSPHORUS (test code = 1354017482) 5.9 mg/dL 2.5-5.0 H Lab Interpretation (test cod e = 43196-7) [facility] (NA, K, CL, CO2, GLUCOSE, BUN, CREATININE, CA)2021-10-17 10:54:32* Test Item Value Reference Range Interpretation Comme nts NA (test code = 0194083387) 135 mmol/L 135-145 K (test code = 4119063849) 5.2 mmol/L 3.5-5.0 H Slight hemolysis CL (test code = 2337502471) 101 mmol/L 98-108 CO2 TOTAL (test code = 8153791201) 27 mmol/L 23-31 AGAP (test code = 6519598778) 2-16 BUN (test code = 2054212054) 21 mg/dL 7-23 Slight hemolysis GLUCOSE (test code = 6674189775) 153 mg/dL 70-110 H CREATININE (test code = 8063064387) 0.71 mg/dL 0.50-1.04 CALCIUM (test code = 4643752104) 8.3 mg/dL 8.6-10.6 L eGFR (test code = 6540200549) mL/min/1.73m2 LUCILLE (test code = LUCILLE) Association [...] imaging tests). Lab Interpretation (test code = 35756-7) [facility] 10:54:32* Test Item Value Reference Range Interpretation Comme nts MAGNESIUM (test code = 1402026818) 2.2 mg/dL 1.7-2.4 Lab Interpretation (test cod e = 47156-6) [facility] 10:54:32* Test Item Value Reference Range Interpretation Comme nts PHOSPHORUS (test code = 8214306003) 5.9 mg/dL 2.5-5.0 H Lab Interpretation (test cod e = 46326-7) Abnormal [facility] [id number] 10:53:06* Test Item Value Reference Range Interpretation Comme nts ESR (test code = 6315950409) See_Comment H [Automated messa ge] The system which generated this result transmitted reference range: 0 - 20 mm/HR. The reference range was not used to interpret this result as normal/abnormal. Lab Interpretation (test code = 15142-3) Abnormal [facility] [id number] 10:53:06* Test Item Value Reference Range Interpretation Comme nts ESR (test code = 0189622831) See_Comment H [Automated messa ge] The system which generated this result transmitted reference range: 0 - 20 mm/HR. The reference range was not used to interpret this result as normal/abnormal. Lab Interpretation (test code = 78272-1) Abnormal [facility]2022-02-13 11:13:05* Test Item Value Reference Range Interpretation Comme nts MAGNESIUM (test code = 8476914496) 2.3 mg/dL 1.7-2.4 Lab Interpretation (test cod e = 74753-8) [facility] 11:13:05* Test Item Value Reference Range Interpretation Comme nts PHOSPHORUS (test code = 8341455499) 3.4 mg/dL 2.5-5.0 Lab Interpretation (test cod e = 54033-5) Normal [facility]2022-02-13 11:13:05* Test Item Value Reference Range Interpretation Comme nts MAGNESIUM (test code = 5013298421) 2.3 mg/dL 1.7-2.4 Lab Interpretation (test cod e = 89848-0) [facility] 11:13:05* Test Item Value Reference Range Interpretation Comme nts PHOSPHORUS (test code = 7534146965) 3.4 mg/dL 2.5-5.0 Lab Interpretation (test cod e = 58716-3) [facility] (NA, K, CL, CO2, GLUCOSE, BUN, CREATININE, CA)2021-10-16 11:13:04* Test Item Value Reference Range Interpretation Comme nts NA (test code = 3255040529) 135 mmol/L 135-145 K (test code = 9529370472) 4.6 mmol/L 3.5-5.0 CL (test code = 8962155055) 102 mmol/L 98-108 CO2 TOTAL (test code = 5707711295) 29 mmol/L 23-31 AGAP (test code = 4529234114) 2-16 BUN (test code = 2918286260) 24 mg/dL 7-23 H GLUCOSE (test code = 4236569723) 90 mg/dL 70-110 CREATININE (test code = 9030144460) 0.87 mg/dL 0.50-1.04 CALCIUM (test code = 8154905209) 8.0 mg/dL 8.6-10.6 L eGFR (test code = 8107691062) mL/min/1.73m2 LUCILLE (test code = LUCILLE) Association [...] imaging tests). Lab Interpretation (test code = 58606-1) [facility] (NA, K, CL, CO2, GLUCOSE, BUN, CREATININE, CA)2021-10-16 11:13:04* Test Item Value Reference Range Interpretation Comme nts NA (test code = 1076206747) 135 mmol/L 135-145 K (test code = 1971959856) 4.6 mmol/L 3.5-5.0 CL (test code = 0214262149) 102 mmol/L 98-108 CO2 TOTAL (test code = 2184334540) 29 mmol/L 23-31 AGAP (test code = 6668426540) 2-16 BUN (test code = 7082406398) 24 mg/dL 7-23 H GLUCOSE (test code = 5285115973) 90 mg/dL 70-110 CREATININE (test code = 6687652125) 0.87 mg/dL 0.50-1.04 CALCIUM (test code = 3714806505) 8.0 mg/dL 8.6-10.6 L eGFR (test code = 2127822320) mL/min/1.73m2 LUCILLE (test code = LUCILLE) Association [...] imaging tests). Lab Interpretation (test code = 52350-5) [facility] + LACTIC [id number] 10:59:55* Test Item Value Reference Range Interpretation Comme nts PH (test code = 2) 7.35-7.45 PCO2 (test code = 0681679763) See_Comment [Automated messa ge] The system which generated this result transmitted reference range: 35 - 45 mmHg. The reference range was not used to interpret this result as normal/abnormal. PO2 (test code = 8888859659) See_Comment L [Automated messa ge] The system which generated this result transmitted reference range: 80 - 100 mmHg. The reference range was not used to interpret this result as normal/abnormal. HCO3 (test code = 3565340141) See_Comment H [Automated messa ge] The system which generated this result transmitted reference range: 22 - 26 mEq/L. The reference range was not used to interpret this result as normal/abnormal. BE (test code = 6295480583) See_Comment [Automated messa ge] The system which generated this result transmitted reference range: -3.0 - 3.0 mEq/L. The reference range was not used to interpret this result as normal/abnormal. THB (test code = 6547159188) 13.7 g/dL 12.0-16.0 %O2HB (test code = 5506874499) 86.3 % 94.0-99.0 L %COHB ART (test code = 9966312081) 0.1 % 0.0-1.5 %METHB ART (test code = 9216081129) 0.1 % 0.4-1.5 L VOL%O2 ART (test code = 4501391707) 16.6 % 15.0-23.0 NA (test code = 1120506868) 135 mmol/L 135-145 K+ (test code = 8222941826) 4.6 mmol/L 3.5-5.0 AC CA IONZ (test code = 4888135229) 4.70 mg/dL 4.50-5.30 GLUCOSE (test code = 1496427835) 88 mg/dL 70-110 LACTIC ACID (test code = 9340675046) 1.41 mmol/L 0.50-2.20 QUES Lab Interpretation (test code = 76149-9) [facility] + LACTIC [id number] 10:59:55* Test Item Value Reference Range Interpretation Comme nts PH (test code = 2) 7.35-7.45 PCO2 (test code = 4213548952) See_Comment [Automated messa ge] The system which generated this result transmitted reference range: 35 - 45 mmHg. The reference range was not used to interpret this result as normal/abnormal. PO2 (test code = 7076660524) See_Comment L [Automated messa ge] The system which generated this result transmitted reference range: 80 - 100 mmHg. The reference range was not used to interpret this result as normal/abnormal. HCO3 (test code = 9062880629) See_Comment H [Automated messa ge] The system which generated this result transmitted reference range: 22 - 26 mEq/L. The reference range was not used to interpret this result as normal/abnormal. BE (test code = 6998563008) See_Comment [Automated messa ge] The system which generated this result transmitted reference range: -3.0 - 3.0 mEq/L. The reference range was not used to interpret this result as normal/abnormal. THB (test code = 9950979917) 13.7 g/dL 12.0-16.0 %O2HB (test code = 2374478303) 86.3 % 94.0-99.0 L %COHB ART (test code = 1968688117) 0.1 % 0.0-1.5 %METHB ART (test code = 3743728323) 0.1 % 0.4-1.5 L VOL%O2 ART (test code = 3299644472) 16.6 % 15.0-23.0 NA (test code = 8480802260) 135 mmol/L 135-145 K+ (test code = 7900786267) 4.6 mmol/L 3.5-5.0 AC CA IONZ (test code = 7782613966) 4.70 mg/dL 4.50-5.30 GLUCOSE (test code = 1712154755) 88 mg/dL 70-110 LACTIC ACID (test code = 4081800050) 1.41 mmol/L 0.50-2.20 QUES Lab Interpretation (test code = 56100-8) Abnormal [facility] WITH [id number] 10:54:01* Test Item Value Reference Range Interpretation [...] 32.3 g/dL 31.6-35.1 RDW-SD (test code = 78628-8) 47.0 fL 39.0-49.9 RDW-CV (test code = 788-0) 14.6 % 12.0-15.5 PLT (test code = 777-3) See_Comment [Automated message] The system which generated this result transmitted reference range: 166 - 358 10*3/?L. The reference range was not used to interpret this result as normal/abnormal. MPV (test code = 19727-3) 10.5 fL 9.5-12.9 NRBC/100 WBC (test code = 7578182433) See_Comment [Automated message] The system which generated this result transmitted reference range: 0.0 - 10.0 /100 WBCs. The reference range was not used to interpret this result as normal/abnormal. NRBC x10^3 (test code = 9552239954) See_Comment [Automated message] The system which generated this result transmitted reference range: 10*3/?L. The reference range was not used to interpret this result as normal/abnormal. GRAN MAT (NEUT) % (test code = 770-8) 85.6 % IMM GRAN % (test code = [id number]) 1.10 % LYMPH % (test code = 736-9) 9.7 % MONO % (test code = 5905-5) 3.0 % EOS % (test code = 713-8) 0.5 % BASO % (test code = 706-2) 0.1 % GRAN MAT x10^3(ANC) (test code = [id number]) 12.97 10*3/uL 1.88-7.09 H IMM GRAN x10^3 (test code = [id number]) 0.16 10*3/uL 0.00-0.06 H LYMPH x10^3 (test code = 731-0) 1.47 10*3/uL 1.32-3.29 MONO x10^3 (test code = 742-7) 0.45 10*3/uL 0.33-0.92 EOS x10^3 (test code = 711-2) 0.08 10*3/uL 0.03-0.39 BASO x10^3 (test code = 704-7) <0.03 0.01-0.07 Lab Interpretation (test code = 55337-9) Abnormal [facility] WITH [id number] 10:54:01* Test Item Value Reference Range Interpretation [...] 32.3 g/dL 31.6-35.1 RDW-SD (test code = 13545-2) 47.0 fL 39.0-49.9 RDW-CV (test code = 788-0) 14.6 % 12.0-15.5 PLT (test code = 777-3) See_Comment [Automated message] The system which generated this result transmitted reference range: 166 - 358 10*3/?L. The reference range was not used to interpret this result as normal/abnormal. MPV (test code = 56523-8) 10.5 fL 9.5-12.9 NRBC/100 WBC (test code = 5804425741) See_Comment [Automated message] The system which generated this result transmitted reference range: 0.0 - 10.0 /100 WBCs. The reference range was not used to interpret this result as normal/abnormal. NRBC x10^3 (test code = 1822962701) See_Comment [Automated message] The system which generated this result transmitted reference range: 10*3/?L. The reference range was not used to interpret this result as normal/abnormal. GRAN MAT (NEUT) % (test code = 770-8) 85.6 % IMM GRAN % (test code = 3397797765) 1.10 % LYMPH % (test code = 736-9) 9.7 % MONO % (test code = 5905-5) 3.0 % EOS % (test code = 713-8) 0.5 % BASO % (test code = 706-2) 0.1 % GRAN MAT x10^3(ANC) (test code = 0617506886) 12.97 10*3/uL 1.88-7.09 H IMM GRAN x10^3 (test code = 7855579937) 0.16 10*3/uL 0.00-0.06 H LYMPH x10^3 (test code = 731-0) 1.47 10*3/uL 1.32-3.29 MONO x10^3 (test code = 742-7) 0.45 10*3/uL 0.33-0.92 EOS x10^3 (test code = 711-2) 0.08 10*3/uL 0.03-0.39 BASO x10^3 (test code = 704-7) <0.03 0.01-0.07 Lab Interpretation (test code = 37265-6) [facility] [id number] 23:24:07* Test Item Value Reference Range Interpretation Comme nts CRP (test code = 7300460241) 22.1 mg/dL <1.0 H Lab Interpretation (test cod e = 54652-5) [facility] [id number] 23:24:07* Test Item Value Reference Range Interpretation Comme nts CRP (test code = 2861586033) 22.1 mg/dL <1.0 H Lab Interpretation (test cod e = 95024-8) [id number] 23:21:42* Test Item Value Reference Range Interpretation Comments TROPONIN I (test code = 3971699548) 0.003 ng/mL See_Comment [Automated message] The system [...] of biotin. Lab Interpretation (test code = 35147-5) Normal [id number] 23:21:42* Test Item Value Reference Range Interpretation Comments TROPONIN I (test code = 9969298935) 0.003 ng/mL See_Comment [Automated message] The system [...] of biotin. Lab Interpretation (test code = 59291-9) Normal [facility] METABOLIC PANEL (NA, K, CL, CO2, GLUCOSE, BUN, CREATININE, CA)2021-10-15 23:12:40* Test Item Value Reference Range Interpretation Comme nts NA (test code = 0677029819) 136 mmol/L 135-145 K (test code = 0911572369) 4.8 mmol/L 3.5-5.0 CL (test code = 6133525457) 104 mmol/L 98-108 CO2 TOTAL (test code = 9199732014) 26 mmol/L 23-31 AGAP (test code = 6632696564) 2-16 BUN (test code = 8055119133) 22 mg/dL 7-23 GLUCOSE (test code = 1855934809) 114 mg/dL 70-110 H CREATININE (test code = 4109030573) 0.77 mg/dL 0.50-1.04 CALCIUM (test code = 0997222334) 8.2 mg/dL 8.6-10.6 L eGFR (test code = 2640901224) mL/min/1.73m2 LUCILLE (test code = LUCILLE) Association [...] imaging tests). Lab Interpretation (test code = 47039-8) Abnormal [facility] METABOLIC PANEL (NA, K, CL, CO2, GLUCOSE, BUN, CREATININE, CA)2021-10-15 23:12:40* Test Item Value Reference Range Interpretation Comme nts NA (test code = 6107040796) 136 mmol/L 135-145 K (test code = 6472499841) 4.8 mmol/L 3.5-5.0 CL (test code = 0036344258) 104 mmol/L 98-108 CO2 TOTAL (test code = 8527533906) 26 mmol/L 23-31 AGAP (test code = 7710626427) 2-16 BUN (test code = 0337719436) 22 mg/dL 7-23 GLUCOSE (test code = 2471462162) 114 mg/dL 70-110 H CREATININE (test code = 7227210596) 0.77 mg/dL 0.50-1.04 CALCIUM (test code = 7986782952) 8.2 mg/dL 8.6-10.6 L eGFR (test code = 8937102875) mL/min/1.73m2 LUCILLE (test code = LUCILLE) Association [...] imaging tests). Lab Interpretation (test code = 18906-9) [facility] [id number] 21:55:57* Test Item Value Reference Range Interpretation Comments TROPONIN I (test code = 5241939684) 0.003 ng/mL See_Comment [Automated message] The system [...] of biotin. Lab Interpretation (test code = 03576-3) [facility] [id number] 21:55:57* Test Item Value Reference Range Interpretation Comments TROPONIN I (test code = 3601089325) 0.003 ng/mL See_Comment [Automated message] The system [...] of biotin. Lab Interpretation (test code = 83388-5) [facility]2022-02-12 19:07:46* Test Item Value Reference Range Interpretation Comme nts Procalcitonin (test code = 3591796975) 0.15 ng/mL <0.08 H LUCILLE (test code [...] lung abscess/empyema. For further information please refer to:[email or web address] Lab Interpretation (test code = 77883-5) [facility]2022-02-12 19:07:46* Test Item Value Reference Range Interpretation Comme nts Procalcitonin (test code = 6832401598) 0.15 ng/mL <0.08 H LUCILLE (test code [...] lung abscess/empyema. For further information please refer to:[email or web address] Lab Interpretation (test code = 60246-9) [facility]anoN-TERMINAL [id number] 18:31:24* Test Item Value Reference Range Interpretation Comme nts NT-proBNP (test code = 8846971977) 43 pg/mL See_Comment [Automated message] The system which generated this result transmitted reference range: <=125. The reference range was not used to interpret this result as normal/abnormal. LUCILLE (test code = LUCILLE) Biotin has been reported to cause a negative bias, interpret results relative to patient's use of biotin. Lab Interpretation (test code = 05168-8) [facility]MIN[facility] [id number] 18:31:24* Test Item Value Reference Range Interpretation Comme nts NT-proBNP (test code = 3766382729) 43 pg/mL See_Comment [Automated message] The system which generated this result transmitted reference range: <=125. The reference range was not used to interpret this result as normal/abnormal. LUCILLE (test code = LUCILLE) Biotin has been reported to cause a negative bias, interpret results relative to patient's use of biotin. Lab Interpretation (test code = 19039-4) [facility]cal[facility]2022-02-12 09:17:58* Test Item Value Reference Range Interpretation Comme nts Procalcitonin (test code = 7019296352) 0.15 ng/mL <0.08 H LUCILLE (test code [...] lung abscess/empyema. For further information please refer to:[email or web address] Lab Interpretation (test code = 59360-5) [facility]normal [facility]cal[facility]2022-02-12 09:17:58* Test Item Value Reference Range Interpretation Comme nts Procalcitonin (test code = 9677987940) 0.15 ng/mL <0.08 H LUCILLE (test code [...] lung abscess/empyema. For further information please refer to:[email or web address] Lab Interpretation (test code = 07729-0) [facility] (NA, K, CL, CO2, GLUCOSE, BUN, CREATININE, CA)2021-10-15 08:36:11* Test Item Value Reference Range Interpretation Comme nts NA (test code = 0937368326) 139 mmol/L 135-145 K (test code = 1758100003) 5.5 mmol/L 3.5-5.0 H Slight hemolysis CL (test code = 4373292003) 104 mmol/L 98-108 CO2 TOTAL (test code = 9630213705) 29 mmol/L 23-31 AGAP (test code = 5783247127) 2-16 BUN (test code = 3099864283) 17 mg/dL 7-23 Slight hemolysis GLUCOSE (test code = 3564864570) 131 mg/dL 70-110 H CREATININE (test code = 4044141913) 0.77 mg/dL 0.50-1.04 CALCIUM (test code = 9732625514) 8.5 mg/dL 8.6-10.6 L eGFR (test code = 2800449821) mL/min/1.73m2 LUCILLE (test code = LUCILLE) Association [...] imaging tests). Lab Interpretation (test code = 95005-6) [facility]normal [facility]anoMagens[facility] [id number] 08:36:11* Test Item Value Reference Range Interpretation Comme nts MAGNESIUM (test code = 3372708499) 2.4 mg/dL 1.7-2.4 Lab Interpretation (test cod e = 75807-4) [facility] (NA, K, CL, CO2, GLUCOSE, BUN, CREATININE, CA)2021-10-15 08:36:11* Test Item Value Reference Range Interpretation Comme nts NA (test code = 9686729337) 139 mmol/L 135-145 K (test code = 2057922052) 5.5 mmol/L 3.5-5.0 H Slight hemolysis CL (test code = 6371663754) 104 mmol/L 98-108 CO2 TOTAL (test code = 1526849534) 29 mmol/L 23-31 AGAP (test code = 0993132662) 2-16 BUN (test code = 4183046571) 17 mg/dL 7-23 Slight hemolysis GLUCOSE (test code = 1290846447) 131 mg/dL 70-110 H CREATININE (test code = 4556109602) 0.77 mg/dL 0.50-1.04 CALCIUM (test code = 5121297834) 8.5 mg/dL 8.6-10.6 L eGFR (test code = 7034967788) mL/min/1.73m2 LUCILLE (test code = LUCILLE) Association [...] imaging tests). Lab Interpretation (test code = 43107-5) [facility] [id number] 08:36:11* Test Item Value Reference Range Interpretation Comme nts MAGNESIUM (test code = 1600342951) 2.4 mg/dL 1.7-2.4 Lab Interpretation (test cod e = 35945-3) Normal [facility] [id number] 08:21:08* Test Item Value Reference Range Interpretation Comments TROPONIN I (test code = 5111597864) 0.005 ng/mL See_Comment [Automated message] The system [...] of biotin. Lab Interpretation (test code = 31168-7) Normal [facility] [id number] 08:21:08* Test Item Value Reference Range Interpretation Comments TROPONIN I (test code = 2467466119) 0.005 ng/mL See_Comment [Automated message] The system [...] of biotin. Lab Interpretation (test code = 98729-4) Normal [facility] WITH [id number] 07:37:26* Test Item Value Reference Range Interpretation [...] 33.0 g/dL 31.6-35.1 RDW-SD (test code = 95796-6) 47.4 fL 39.0-49.9 RDW-CV (test code = 788-0) 14.6 % 12.0-15.5 PLT (test code = 777-3) See_Comment [Automated message] The system which generated this result transmitted reference range: 166 - 358 10*3/?L. The reference range was not used to interpret this result as normal/abnormal. MPV (test code = 60081-5) 11.1 fL 9.5-12.9 NRBC/100 WBC (test code = 5108021774) See_Comment [Automated message] The system which generated this result transmitted reference range: 0.0 - 10.0 /100 WBCs. The reference range was not used to interpret this result as normal/abnormal. NRBC x10^3 (test code = 6839490597) <0.01 See_Comment [Automated message] The system which generated this result transmitted reference range: 10*3/?L. The reference range was not used to interpret this result as normal/abnormal. GRAN MAT (NEUT) % (test code = 770-8) 92.0 % IMM GRAN % (test code = 5740827870) 1.10 % LYMPH % (test code = 736-9) 5.0 % MONO % (test code = 5905-5) 1.8 % EOS % (test code = 713-8) 0.0 % BASO % (test code = 706-2) 0.1 % GRAN MAT x10^3(ANC) (test code = 1199335414) 20.65 10*3/uL 1.88-7.09 H IMM GRAN x10^3 (test code = 7015241651) 0.25 10*3/uL 0.00-0.06 H LYMPH x10^3 (test code = 731-0) 1.13 10*3/uL 1.32-3.29 L MONO x10^3 (test code = 742-7) 0.40 10*3/uL 0.33-0.92 EOS x10^3 (test code = 711-2) <0.03 0.03-0.39 L BASO x10^3 (test code = 704-7) 0.03 10*3/uL 0.01-0.07 Lab Interpretation (test code = 27257-4) Abnormal [facility] WITH [id number] 07:37:26* Test Item Value Reference Range Interpretation [...] 33.0 g/dL 31.6-35.1 RDW-SD (test code = 45150-9) 47.4 fL 39.0-49.9 RDW-CV (test code = 788-0) 14.6 % 12.0-15.5 PLT (test code = 777-3) See_Comment [Automated message] The system which generated this result transmitted reference range: 166 - 358 10*3/?L. The reference range was not used to interpret this result as normal/abnormal. MPV (test code = 14078-9) 11.1 fL 9.5-12.9 NRBC/100 WBC (test code = 4113871146) See_Comment [Automated message] The system which generated this result transmitted reference range: 0.0 - 10.0 /100 WBCs. The reference range was not used to interpret this result as normal/abnormal. NRBC x10^3 (test code = 3345435421) <0.01 See_Comment [Automated message] The system which generated this result transmitted reference range: 10*3/?L. The reference range was not used to interpret this result as normal/abnormal. GRAN MAT (NEUT) % (test code = 770-8) 92.0 % IMM GRAN % (test code = 5697291447) 1.10 % LYMPH % (test code = 736-9) 5.0 % MONO % (test code = 5905-5) 1.8 % EOS % (test code = 713-8) 0.0 % BASO % (test code = 706-2) 0.1 % GRAN MAT x10^3(ANC) (test code = 6457982457) 20.65 10*3/uL 1.88-7.09 H IMM GRAN x10^3 (test code = 3217799954) 0.25 10*3/uL 0.00-0.06 H LYMPH x10^3 (test code = 731-0) 1.13 10*3/uL 1.32-3.29 L MONO x10^3 (test code = 742-7) 0.40 10*3/uL 0.33-0.92 EOS x10^3 (test code = 711-2) <0.03 0.03-0.39 L BASO x10^3 (test code = 704-7) 0.03 10*3/uL 0.01-0.07 Lab Interpretation (test code = 39019-9) [facility]NA+K+GLU+CA2+2021-10-15 07:28:14* Test Item Value Reference Range Interpretation Comme nts PH (test code = 2) 7.35-7.45 PCO2 (test code = 0696283660) See_Comment [Automated messa ge] The system which generated this result transmitted reference range: 35 - 45 mmHg. The reference range was not used to interpret this result as normal/abnormal. PO2 (test code = 5107573916) See_Comment H [Automated messa ge] The system which generated this result transmitted reference range: 80 - 100 mmHg. The reference range was not used to interpret this result as normal/abnormal. HCO3 (test code = 7906650331) See_Comment [Automated messa ge] The system which generated this result transmitted reference range: 22 - 26 mEq/L. The reference range was not used to interpret this result as normal/abnormal. BE (test code = 0970092283) See_Comment [Automated messa ge] The system which generated this result transmitted reference range: -3.0 - 3.0 mEq/L. The reference range was not used to interpret this result as normal/abnormal. THB (test code = 6080206362) 13.1 g/dL 12.0-16.0 %O2HB (test code = 9332684596) 98.7 % 94.0-99.0 %COHB ART (test code = 1013447355) 0.4 % 0.0-1.5 %METHB ART (test code = 1413949675) 0.0 % 0.4-1.5 L VOL%O2 ART (test code = 2149518970) 18.5 % 15.0-23.0 QUES NA (test code = 9076453817) 138 mmol/L 135-145 K+ (test code = 5714559609) 5.0 mmol/L 3.5-5.0 AC CA IONZ (test code = 7966538414) 4.50 mg/dL 4.50-5.30 GLUCOSE (test code = 0894625977) 138 mg/dL 70-110 H Lab Interpretation (test code = 53455-1) [facility]NA+K+GLU+CA2+2021-10-15 07:28:14* Test Item Value Reference Range Interpretation Comme nts PH (test code = 2) 7.35-7.45 PCO2 (test code = 2924441814) See_Comment [Automated messa ge] The system which generated this result transmitted reference range: 35 - 45 mmHg. The reference range was not used to interpret this result as normal/abnormal. PO2 (test code = 7668405542) See_Comment H [Automated messa ge] The system which generated this result transmitted reference range: 80 - 100 mmHg. The reference range was not used to interpret this result as normal/abnormal. HCO3 (test code = 6735358663) See_Comment [Automated messa ge] The system which generated this result transmitted reference range: 22 - 26 mEq/L. The reference range was not used to interpret this result as normal/abnormal. BE (test code = 9405663492) See_Comment [Automated messa ge] The system which generated this result transmitted reference range: -3.0 - 3.0 mEq/L. The reference range was not used to interpret this result as normal/abnormal. THB (test code = 3256527508) 13.1 g/dL 12.0-16.0 %O2HB (test code = 0380450619) 98.7 % 94.0-99.0 %COHB ART (test code = 3298462011) 0.4 % 0.0-1.5 %METHB ART (test code = 9855019297) 0.0 % 0.4-1.5 L VOL%O2 ART (test code = 6656657707) 18.5 % 15.0-23.0 QUES NA (test code = 2078471683) 138 mmol/L 135-145 K+ (test code = 3102257822) 5.0 mmol/L 3.5-5.0 AC CA IONZ (test code = 9048197921) 4.50 mg/dL 4.50-5.30 GLUCOSE (test code = 2648957014) 138 mg/dL 70-110 H Lab Interpretation (test code = 18740-4) [facility] [id number] 00:00:00 * Test Item Value Reference Range Interpretation Comme nts DEB SPECIES (test code = ) NEGATIVE G. VAGINALIS (test code = 80276) POSITIVE T. VAGINALIS (test code = 78395) NEGATIVE GC AND CHLAMYDIA, AMPLIFIED, [id number] 00:00:00* Test Item Value Reference Range Interpretation Comme nts GONORRHEA, NAAT (test code = 87686) NEGATIVE CHLAMYDIA, NAAT (test code = 56765) NEGATIVE HIV AB/AG COMBO RFLX [id number] 00:00:00* Test Item Value Reference Range Interpretation Comme nts HIV 1/2 4TH GEN, RFLX CONF ( test code = 3514) NON-REACTIVE [id number] 00:00:00* Test Item Value Reference Range Interpretation Comme nts RPR RESULT (test code = 3501) NON-REACTIVE RPR TITER (test code = 3500) NOT INDIC. TITER VAGINAL PATHOGENS DNA [id number] 00:00:00* Test Item Value Reference Range Interpretation Comme nts DEB SPECIES (test code = ) NEGATIVE G. VAGINALIS (test code = 91278) POSITIVE T. VAGINALIS (test code = 48391) NEGATIVE GC AND CHLAMYDIA, AMPLIFIED, [id number] 00:00:00* Test Item Value Reference Range Interpretation Comme nts GONORRHEA, NAAT (test code = 08011) NEGATIVE CHLAMYDIA, NAAT (test code = 80590) NEGATIVE HIV AB/AG COMBO RFLX [id number] 00:00:00* Test Item Value Reference Range Interpretation Comme nts HIV 1/2 4TH GEN, RFLX CONF ( test code = 3514) NON-REACTIVE [id number] 00:00:00* Test Item Value Reference Range Interpretation Comme nts RPR RESULT (test code = 3501) NON-REACTIVE RPR TITER (test code = 3500) NOT INDIC. TITER VAGINAL PATHOGENS DNA [id number] 00:00:00* Test Item Value Reference Range Interpretation Comme nts DEB SPECIES (test code = ) NEGATIVE G. VAGINALIS (test code = 73731) POSITIVE T. VAGINALIS (test code = 77203) NEGATIVE GC AND CHLAMYDIA, AMPLIFIED, [id number] 00:00:00* Test Item Value Reference Range Interpretation Comme nts GONORRHEA, NAAT (test code = 20597) NEGATIVE CHLAMYDIA, NAAT (test code = 98525) NEGATIVE HIV AB/AG COMBO RFLX [id number] 00:00:00* Test Item Value Reference Range Interpretation Comme nts HIV 1/2 4TH GEN, RFLX CONF ( test code = 3514) NON-REACTIVE VAGINAL PATHOGENS DNA [id number] 00:00:00* Test Item Value Reference Range Interpretation Comme nts DEB SPECIES (test code = 40577) NEGATIVE G. VAGINALIS (test code = 01004) POSITIVE T. VAGINALIS (test code = 54869) NEGATIVE [id number] 00:00:00* Test Item Value Reference Range Interpretation Comme nts RPR RESULT (test code = 3501) NON-REACTIVE RPR TITER (test code = 3500) NOT INDIC. TITER GC AND CHLAMYDIA, AMPLIFIED, [id number] 00:00:00* Test Item Value Reference Range Interpretation Comme nts GONORRHEA, NAAT (test code = 58037) NEGATIVE CHLAMYDIA, NAAT (test code = 99299) NEGATIVE HIV AB/AG COMBO RFLX [id number] 00:00:00* Test Item Value Reference Range Interpretation Comme nts HIV 1/2 4TH GEN, RFLX CONF ( test code = 3514) NON-REACTIVE [id number] 00:00:00* Test Item Value Reference Range Interpretation Comme nts RPR RESULT (test code = 3501) NON-REACTIVE RPR TITER (test code = 3500) NOT INDIC. TITER VAGINAL PATHOGENS DNA [id number] 00:00:00* Test Item Value Reference Range Interpretation Comme nts DEB SPECIES (test code = 50702) NEGATIVE G. VAGINALIS (test code = 21439) POSITIVE T. VAGINALIS (test code = 04388) NEGATIVE Dwayne F AustinGC AND CHLAMYDIA, AMPLIFIED, [id number] 00:00:00* Test Item Value Reference Range Interpretation Comme nts GONORRHEA, NAAT (test code = 63028) NEGATIVE CHLAMYDIA, NAAT (test code = 26737) NEGATIVE Dwayne F AustinHIV AB/AG COMBO RFLX [id number] 00:00:00* Test Item Value Reference Range Interpretation Comme nts HIV 1/2 4TH GEN, RFLX CONF ( test code = 3514) NON-REACTIVE Dwayne Bah [id number] 00:00:00* Test Item Value Reference Range Interpretation Comme nts RPR RESULT (test code = 3501) NON-REACTIVE RPR TITER (test code = 3500) NOT INDIC. TITER Dwayne Bah AustinVAGINAL PATHOGENS DNA [id number] 00:00:00* Test Item Value Reference Range Interpretation Comme nts DEB SPECIES (test code = 79715) NEGATIVE G. VAGINALIS (test code = 77964) POSITIVE T. VAGINALIS (test code = 17499) NEGATIVE Dwayne Bah AustinGC AND CHLAMYDIA, AMPLIFIED, [id number] 00:00:00* Test Item Value Reference Range Interpretation Comme nts GONORRHEA, NAAT (test code = 08817) NEGATIVE CHLAMYDIA, NAAT (test code = 15508) NEGATIVE Dwayne Bah AustinHIV AB/AG COMBO RFLX [id number] 00:00:00* Test Item Value Reference Range Interpretation Comme nts HIV 1/2 4TH GEN, RFLX CONF ( test code = 4) NON-REACTIVE Dwayne Bah [id number] 00:00:00* Test Item Value Reference Range Interpretation Comme nts RPR RESULT (test code = 3501) NON-REACTIVE RPR TITER (test code = 3500) NOT INDIC. TITER Dwayne MyersVAGINAL PATHOGENS DNA [id number] 00:00:00* Test Item Value Reference Range Interpretation Comme nts DEB SPECIES (test code = ) NEGATIVE G. VAGINALIS (test code = 08589) POSITIVE T. VAGINALIS (test code = 74633) NEGATIVE Dwayne Bah AustinGC AND CHLAMYDIA, AMPLIFIED, [id number] 00:00:00* Test Item Value Reference Range Interpretation Comme nts GONORRHEA, NAAT (test code = 22772) NEGATIVE CHLAMYDIA, NAAT (test code = 71252) NEGATIVE Dwayne Bah AustinHIV AB/AG COMBO RFLX [id number] 00:00:00* Test Item Value Reference Range Interpretation Comme nts HIV 1/2 4TH GEN, RFLX CONF ( test code = 3514) NON-REACTIVE Dwayne Bah [id number] 00:00:00* Test Item Value Reference Range Interpretation Comme nts RPR RESULT (test code = 3501) NON-REACTIVE RPR TITER (test code = 3500) NOT INDIC. TITER Dwayne MyersVAGINAL PATHOGENS DNA [id number] 00:00:00* Test Item Value Reference Range Interpretation Comme nts DEB SPECIES (test code = 07318) NEGATIVE G. VAGINALIS (test code = 23242) POSITIVE T. VAGINALIS (test code = 09316) NEGATIVE Dwayne Bah AustinGC AND CHLAMYDIA, AMPLIFIED, [id number] 00:00:00* Test Item Value Reference Range Interpretation Comme nts GONORRHEA, NAAT (test code = 28638) NEGATIVE CHLAMYDIA, NAAT (test code = 49280) NEGATIVE Dwayne Bah AustinHIV AB/AG COMBO RFLX [id number] 00:00:00* Test Item Value Reference Range Interpretation Comme nts HIV 1/2 4TH GEN, RFLX CONF ( test code = 3514) NON-REACTIVE Dwayne Bah [id number] 00:00:00* Test Item Value Reference Range Interpretation Comme nts RPR RESULT (test code = 3501) NON-REACTIVE RPR TITER (test code = 3500) NOT INDIC. TITER Dwayne MyersVAGINAL PATHOGENS DNA [id number] 00:00:00* Test Item Value Reference Range Interpretation Comme nts DEB SPECIES (test code = ) NEGATIVE G. VAGINALIS (test code = 93703) POSITIVE T. VAGINALIS (test code = 37238) NEGATIVE Dwayne Bah AustinGC AND CHLAMYDIA, AMPLIFIED, [id number] 00:00:00* Test Item Value Reference Range Interpretation Comme nts GONORRHEA, NAAT (test code = 90381) NEGATIVE CHLAMYDIA, NAAT (test code = 07445) NEGATIVE Dwayne Bah AustinHIV AB/AG COMBO RFLX [id number] 00:00:00* Test Item Value Reference Range Interpretation Comme nts HIV 1/2 4TH GEN, RFLX CONF ( test code = 3514) NON-REACTIVE Dwayne Bah [id number] 00:00:00* Test Item Value Reference Range Interpretation Comme nts RPR RESULT (test code = 3501) NON-REACTIVE RPR TITER (test code = 3500) NOT INDIC. TITER Dwayne Bah AustinVAGINAL PATHOGENS DNA [id number] 00:00:00* Test Item Value Reference Range Interpretation Comme nts DEB SPECIES (test code = ) NEGATIVE G. VAGINALIS (test code = 78082) POSITIVE T. VAGINALIS (test code = 46394) NEGATIVE Dwayne aBh AustinGC AND CHLAMYDIA, AMPLIFIED, [id number] 00:00:00* Test Item Value Reference Range Interpretation Comme nts GONORRHEA, NAAT (test code = 99456) NEGATIVE CHLAMYDIA, NAAT (test code = 05519) NEGATIVE Dwayne Bah AustinHIV AB/AG COMBO RFLX [id number] 00:00:00* Test Item Value Reference Range Interpretation Comme nts HIV 1/2 4TH GEN, RFLX CONF ( test code = 3514) NON-REACTIVE Dwayne Bah [id number] 00:00:00* Test Item Value Reference Range Interpretation Comme nts RPR RESULT (test code = 3501) NON-REACTIVE RPR TITER (test code = 3500) NOT INDIC. TITER Dwayne MyersVAGINAL PATHOGENS DNA [id number] 00:00:00* Test Item Value Reference Range Interpretation Comme nts DEB SPECIES (test code = ) NEGATIVE G. VAGINALIS (test code = 81701) POSITIVE T. VAGINALIS (test code = 94665) NEGATIVE Dwayne Bah AustinGC AND CHLAMYDIA, AMPLIFIED, [id number] 00:00:00* Test Item Value Reference Range Interpretation Comme nts GONORRHEA, NAAT (test code = 66017) NEGATIVE CHLAMYDIA, NAAT (test code = 52779) NEGATIVE Dwayne Bah AustinHIV AB/AG COMBO RFLX [id number] 00:00:00* Test Item Value Reference Range Interpretation Comme nts HIV 1/2 4TH GEN, RFLX CONF ( test code = 3514) NON-REACTIVE Dwayne Bah [id number] 00:00:00* Test Item Value Reference Range Interpretation Comme nts RPR RESULT (test code = 3501) NON-REACTIVE RPR TITER (test code = 3500) NOT INDIC. TITER Dwayne Bah AustinVAGINAL PATHOGENS DNA [id number] 00:00:00* Test Item Value Reference Range Interpretation Comme nts DEB SPECIES (test code = 13426) NEGATIVE G. VAGINALIS (test code = 22075) POSITIVE T. VAGINALIS (test code = 83515) NEGATIVE Dwayne MyersGC AND CHLAMYDIA, AMPLIFIED, [id number] 00:00:00* Test Item Value Reference Range Interpretation Comme nts GONORRHEA, NAAT (test code = 31938) NEGATIVE CHLAMYDIA, NAAT (test code = 21327) NEGATIVE Dwayne MyersHIV AB/AG COMBO RFLX [id number] 00:00:00* Test Item Value Reference Range Interpretation Comme nts HIV 1/2 4TH GEN, RFLX CONF ( test code = 3514) NON-REACTIVE Dwayne [id number] 00:00:00* Test Item Value Reference Range Interpretation Comme nts RPR RESULT (test code = 3501) NON-REACTIVE RPR TITER (test code = 3500) NOT INDIC. TITER Dwayne Myers Notes Date/Time Note Provider Source Dwayne Perry [facility]2024-09-10 00:00:00 Dwayne Perry [facility]2024-08-14 00:00:00 Dwayne Perry [facility]2024-08-13 [facility]-06 00:00:00 Dwayne Carroll [facility]24-07[facility] Patient discharged from the emergency department in stable condition per the reassessment of the physician. Patient was seen, worked up, and treated for: Diagnoses that have been ruled out: None Diagnoses that are still under consideration: None Final diagnoses: COVID-19 virus infection Bilious vomiting with nausea Chest pain, unspecified type Flexural eczema Acute nonintractable headache, unspecified headache type Acute cystitis with hematuria Throughout the ED course patient remained vitally stable: BP (!) 151/99 | Pulse 79 | Temp 37 ?C (98.6 ?F) (Tympanic) | Resp 16 | Ht 1.6 m (5' 3") | Wt 88.5 kg (195 lb) | SpO2 99% | BMI 34.54 kg/m? IV removed. Patient leaves the emergency room via ambulation. All questions answered. AVS given to patient. A/Ox4, GCS 15. Nichole Maxwell [place] [id number] 19:07:13 Nurse Report Report given to Nichole GRAJEDA. Chief complaint, assessment findings, infusion verify and orders reviewed. Plan of care discussed at bedside with patient and both nurses. Patient/family members verbalized understanding. Ileana Kang RN Ileana Kang [place] [id number] 18:48:34 Notified provider about patient still having headache. [place] [id number] 09:34:38 Patient dc home. Follow up with pcp. Verbalize understanding. Signed paper work. RA [facility] Loraine Luz [id number] 06:59:53 Report to Fi [place] [id number] 06:29:51 Pt adds that she has a rash on her left arm by her elbow and "heat bumps" on her neck and chest [place] [id number] 06:25:18 CC: Pt reports headache, body aches, cough, sore throat x 3 days. Pt states she took a home covid test and it was negative. PMHx: HTN Awake, alert, oriented, repetatively clearing her throat, resp reg unlabored, skin warm, color appropriate for race, moves all ext without difficulty, amb with steady gait Luly Workman RNMemorial [id number] 06:17:00 Medical Decision Making Case signed out to me by Dr Garcia, awaiting results of her lab work. Results became available as follows : LABS: Recent Results (from the past 24 hour(s)) -Influenza A B RSV COVID NAAT: Collection Time: 03/22/24 6:34 AM Specimen: NASOPHARYNGEAL SWAB Result Value Ref Range Influenza A NAAT Negative Negative Influenza B NAAT Negative Negative RSV by PCR Negative Negative SARS-CoV-2 NAAT Positive (A) Negative -Rapid Strep Screen For Group A: Collection Time: 03/22/24 6:34 AM Specimen: THROAT; Swab Result Value Ref Range Molecular Strep Negative Negative Patient re-evaluates ad bed side, she states that she feel better and is willing to go hoe, will proceed to DC her home with adequate medications to treat her condition. Problems Addressed: Acute cough: complicated acute illness or injury COVID-19: complicated acute illness or injury with systemic symptoms Sore throat: complicated acute illness or injury with systemic symptoms Amount and/or Complexity of Data Reviewed External Data Reviewed: labs, radiology and notes. Details: From previous visits reviewed and compared with current data Labs: ordered. Decision-making details documented in ED Course. Radiology: ordered. Risk OTC drugs. Prescription drug management. Mk Hernandez MD 03/22/24919 [id number] [facility]2024-02-09 23:57:58 Pt was seen by provider and discharged HEN HAND Kath Ha [facility] [id number] 19:19:55 Patient had a fall today fall happened at 4pm patient swelling and tenderness patient fell on hard dirt no black out, patient is in ED wheel chair having trouble walking. Patient is a.o x4 no respiratory distress. 10/10 pain scale HEN HAND Steve Luajn [facility]
[2024-07-03] MEDS ORDERED: KETOROLAC 30 MG/ML INJ ONE (13:48)
[2024-07-03] MEDS ORDERED: NA CHLORIDE 0.9% 0 ML ONE (13:48)
[2024-07-03 14:23] LABS: Absolute Basophils 0.2 K/uL (0-0.5); Absolute Eosinophils 0.1 K/uL (0-0.5); Absolute Monocytes 0.7 K/uL (0.1-1.3); Absolute Neutrophil 6.5 K/uL (1.8-8.0); Basophils % 2.5 % (0-1.3); Eosinophils % 1.3 % (0-4.4); Hematocrit 38.6 % (36.0-45.0); Hemoglobin 12.7 g/dL (12.0-15.0); Lymphocytes % 20.6 % (15.3-44.8); MCH 26.3 pg (27.0-35.0); MCHC 32.9 g/dL (32.0-36.0); MPV 8.7 fL (7.6-11.3); Monocytes % 7.3 % (3.3-12.3); Neutrophils % 68.3 % (41.7-73.7); Nucleated Red Blood Cells % 0.2 % (0-0); Platelets 273 thou/uL (152-406); RBC Red Blood Cell Count 4.83 M/uL (3.86-4.86); Red Cell Distribution Width 18.9 % (12.1-15.2)
[2024-07-03] MEDS ORDERED: DIPHENHYDRAMINE 50 MG/ML VIAL ONE (14:27)
[2024-07-03] MEDS ORDERED: METOCLOPRAMIDE 10 MG/2mL INJ ONE (14:27)
[2024-07-03] MEDS ORDERED: Magnesium Sulfate 2gm IVPB 0 G/0 ML BAG IV ONE (14:28)
[2024-07-03 14:42] LABS: Anion Gap 8.1 mEq/L (5.0-15.0); Potassium 4.1 mEq/L (3.5-5.1); Troponin High Sensitivity 24.5 pg/mL (<58.9)
[2024-07-03] MEDS ORDERED: ACETAMINOPHEN 500 MG TAB ONE (14:55)
[2024-07-03] MEDS ORDERED: METOCLOPRAMIDE 5 MG TAB ONE (14:56)
[2024-07-03] MEDS ORDERED: dexAMETHasone 10 MG/ML VIAL ONE (14:56)
--- NOTE | 2024-07-03 15:26 | ER ---
Nurse's Notes [facility] Name: Nancie Ordonez Age: 53 yrs Sex: Female : 1970 Arrival Date: 07/03/2024 Time: 13:25 Bed 19 Private MD: Diagnosis: Headache;Essential (primary) hypertension Presentation: 07/03 13:36 Chief complaint: Patient states: headache since yesterday, just left center for ko1 colonoscopy but they cancelled due to blood pressure being too high and sent me here. They gave me meds through my IV but it still didn't go down. Coronavirus screen: At this time, the client does not indicate any symptoms associated with coronavirus-19. Ebola Screen: No symptoms or risks identified at this time. Initial Sepsis Screen: Does the patient meet any 2 criteria? No. Patient's initial sepsis screen is negative. Does the patient have a suspected source of infection? No. Patient's initial sepsis screen is negative. Risk Assessment: Do you want to hurt yourself or someone else? Patient reports no desire to harm self or others. Onset of symptoms was July 03, 2024. 13:36 Method Of Arrival: Ambulatory ko1 13:36 Acuity: DEEPALI 3 ko1 Triage Assessment: 13:41 Headache History: Denies prior headaches. General: Appears in no apparent distress. ko1 Behavior is calm, cooperative, appropriate for age. Pain: Pain currently is 10 out of 10 on a pain scale. Pain began gradually, Also complains of no other associated symptoms. Neuro: Reports headache in entire. 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 - Infectious Disease History:: Denies. - Social history:: Smoking status: Patient denies any tobacco usage or history of. Screenin:45 [facility] ED Fall Risk Assessment (Adult) History of falling in the last 3 months, kc6 including since admission No falls in past 3 months (0 pts) Confusion or Disorientation No (0 pts) Intoxicated or Sedated No (0 pts) Impaired Gait No (0 pts) Mobility Assist Device Used No (0 pt) Altered Elimination No (0 pt) Score/Fall Risk Level 0 - 2 = Low Risk Oriented to surroundings. Abuse screen: Denies threats or abuse. Denies injuries from another. Nutritional screening: No deficits noted. Tuberculosis screening: No symptoms or risk factors identified. Assessment: 13:45 General: Appears in no apparent distress. uncomfortable, well groomed, well developed, kc6 Behavior is cooperative, appropriate for age, anxious, crying. Pain: Complains of pain in face. Neuro: Level of Consciousness is awake, alert, obeys commands, Oriented to person, place, time, situation, Appropriate for age Reports headache that is the "worst ever". Cardiovascular: Denies chest pain, Capillary refill < 3 seconds. Respiratory: Reports shortness of breath on exertion Airway is patent Trachea midline Respiratory effort is even, unlabored, Respiratory pattern is regular, symmetrical. GI: Abdomen is round non-distended, Reports nausea, Patient currently denies abdominal pain, diarrhea, vomiting. : No signs and/or symptoms were reported regarding the genitourinary system. EENT: No signs and/or symptoms were reported regarding the EENT system. Derm: No signs and/or symptoms reported regarding the dermatologic system. Skin is intact, is healthy with good turgor, Skin is pink, warm \\T\\ dry. Musculoskeletal: No signs and/or symptoms reported regarding the musculoskeletal system. Circulation, motion, and sensation intact. Capillary refill < 3 seconds, Range of motion: intact in all extremities. 14:45 Reassessment: Patient appears in no apparent distress at this time. No changes from kc6 previously documented assessment. Patient and/or family updated on plan of care and expected duration. Pain level reassessed. Patient is alert, oriented x 3, equal unlabored respirations, skin warm/dry/pink. 15:13 Reassessment: 2 failed IV attempts by NICCI Ordoñez. pt refusing IM meds and requesting kc6 that we try again for an IV. Dr. June made aware and at bedside. 15:37 Reassessment: Patient appears in no apparent distress at this time. No changes from kc6 previously documented assessment. Patient and/or family updated on plan of care and expected duration. Pain level reassessed. Patient is alert, oriented x 3, equal unlabored respirations, skin warm/dry/pink. Vital Signs: 13:36 BP 185 / 120; Pulse 92; Resp 17; Temp 97; Pulse Ox 98% ; ko1 13:45 BP 177 / 116; Pulse 96; Resp 19 S; Pulse Ox 97% on R/A; kc6 15:37 BP 178 / 105; Pulse 90; Resp 18 S; Pulse Ox 97% on R/A; kc6 ED Course: 13:28 Patient arrived in ED. mg5 13:29 Theron June MD is Attending Physician. ec2 13:41 Triage completed. ko1 13:41 Arm band placed on right wrist. Patient placed in an exam room, on a stretcher, on ko1 equipment monitor phototypesetting, Patient notified of wait time. 13:45 Patient has correct armband on for positive identification. Bed in low position. Call kc6 light in reach. Side rails up X 1. monitor and storage bin tender on. Pulse ox on. NIBP on. Door closed. Noise minimized. Lights dimmed. Warm blanket given. Pillow given. 13:46 Shantal Renteria, RN is Primary Nurse. kc6 14:19 Missed attempt(s): 22 gauge in right forearm. Missed attempt(s): 22 gauge in left kc6 antecubital area. 14:19 Initial lab(s) drawn, by me, sent to lab. kc6 14:20 Patient maintains SpO2 saturation greater than 95% on room air. kc6 15:56 Provided Education on: f/u with PCP to adjust BP medicine. kc6 15:56 No provider procedures requiring assistance completed. Patient did not have IV access kc6 during this emergency room visit. Administered Medications: 14:04 Not Given (pt allergyy): [id number] mg IVP once kc6 15:04 Not Given (Other Intervention Used): [id number] mg IVP once; over 1 to 2 minutes kc6 15:04 Drug: Acetaminophen PO 1000 mg PO once Route: PO; kc6 15:36 Follow up: Response: No adverse reaction; Pain is unchanged, physician notified kc6 15:04 Drug: MetoCLOPramide PO 10 mg PO once Route: PO; kc6 15:36 Follow up: Response: No adverse reaction; Nausea is decreased kc6 15:30 Not Given (Other Intervention Used): ns 0.9% 500 ml IV at bolus once; to be given as a kc6 bolus over 30 minutes 15:30 Not Given (Other Intervention Used): [id number] mg IVP once kc6 15:30 Not Given (Other Intervention Used): magnesium sulfate2 grams IVPB once over 30 mins kc6 15:30 Not Given (Patient Refused): dexamethasone 10 mg IM once kc6 15:36 Drug: oxyCODONE PO 10 mg PO once Route: PO; kc6 15:55 Follow up: Response: No adverse reaction; RASS: Alert and Calm (0) kc6 Medication: 15:56 VIS not applicable for this client. kc6 Outcome: 15:26 Discharge ordered by . ec2 15:56 Discharged to home ambulatory, with significant other, kc6 15:56 Condition: good 15:56 Discharge instructions given to patient, significant other, Instructed on discharge instructions, follow up and referral plans. no drinking with medication, no driving heavy equipment, medication usage, Demonstrated understanding of instructions, follow-up care, medications, Prescriptions given X 1, 15:57 Patient left the ED. kc6 Signatures: Shantal Renteria RN RN kc6 Corazon Parr RN RN ko1 Shu Putnam mg5 Theron June MD MD ec2 Corrections: (The following items were deleted from the chart) 13:43 13:41 Home Meds: amlodipine oral; ko1 ko1 15:15 15:13 Reassessment: 2 failed IV attempts by NICCI Ordoñez. pt refusing IM meds and kc6 requesting that we try again for an IV. Dr. June made aware and at bedside. kc6 15:55 13:45 General: Appears in no apparent distress. uncomfortable, well groomed, well kc6 developed, Behavior is cooperative, appropriate for age, crying, kc6
--- NOTE | 2024-07-03 15:26 | EDPHYS ---
Physician Documentation [facility] Name: Nancie Ordonez Age: 53 yrs Sex: Female : 1970 Arrival Date: 07/03/2024 Time: 13:25 Bed 19 Private MD: ED Physician Theron June HPI: 07/03 14:12 This 53 yrs old Black Female presents to ER via Ambulatory with complaints of Headache, ec2 High Blood Pressure. 14:12 Patient arrives today for evaluation of a headache as well as elevated blood pressure. ec2 Patient reports she has been experiencing a headache throughout the day. States that she has a history of high blood pressure and is on lisinopril. States that she was at the GI clinic today was supposed to get some type procedure however her blood pressure is elevated subsequently canceled the procedure. Patient reports no chest pain or difficulty breathing. Patient reports otherwise not taking any medications for headache.. 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 - Infectious Disease History:: Denies. - Social history:: Smoking status: Patient denies any tobacco usage or history of. ROS: 14:12 Constitutional: as per hpi ec2 Exam: 14:12 Constitutional: GEN: NAD Head: atraumatic Eyes: EOMI Ears: External ears are ec2 normal. CV: regular rate LUNGS: no respiratory distress ABD: non-distended SKIN: no evidence of rashes MSK: no evidence of trauma Vital Signs: 13:36 BP 185 / 120; Pulse 92; Resp 17; Temp 97; Pulse Ox 98% ; ko1 13:45 BP 177 / 116; Pulse 96; Resp 19 S; Pulse Ox 97% on R/A; kc6 15:37 BP 178 / 105; Pulse 90; Resp 18 S; Pulse Ox 97% on R/A; kc6 MDM: 13:47 Medical Screening Exam initiated ec2 14:12 Data reviewed: vital signs. ED course: Patient arrives today for evaluation of ec2 headache. Examination remarkable for well-appearing nontoxic dividual's otherwise in no acute distress with a reassuring examination. Will obtain lab work, treat the patient's headache and reassess. . 14:18 ED course: EKG independently reviewed and interpreted by me, shows normal sinus rhythm, ec2 rate of 89, no acute ST segment elevation, intervals are nonactionable, nonspecific T wave abnormalities noted in the lateral leads. . 14:55 ED course: Labs without evidence of acute endorgan damage. . ec2 15:26 ED course: Lab work is unrevealing. On reassessment patient is well-appearing and in no ec2 acute distress. Will discharge home, prescribe Compazine and have the patient follow-up with primary care for her blood pressure issues. Doubt intracranial pathology such as intracranial brain bleed given lack of neurologic deficit symptoms, additionally patient is awake and alert and oriented x 4, doubt press. 07/03 13:42 Order name: Basic Metabolic Panel; Complete Time: 14:55 ec2 07/03 13:42 Order name: CBC with Diff; Complete Time: 14:55 ec2 07/03 13:42 Order name: Troponin HS; Complete Time: 14:55 ec2 07/03 13:42 Order name: Cardiac monitoring; Complete Time: 14:04 ec2 07/03 13:42 Order name: EKG - Nurse/Tech; Complete Time: 14:04 ec2 07/03 13:42 Order name: Labs collected and sent; Complete Time: 14:19 ec2 07/03 13:42 Order name: O2 Per Protocol; Complete Time: 14:04 ec2 07/03 13:42 Order name: O2 Sat Monitoring; Complete Time: 14:04 ec2 Administered Medications: 14:04 Not Given (pt allergyy): mg IVP once kc6 15:04 Not Given (Other Intervention Used): [id number] mg IVP once; over 1 to 2 minutes kc6 15:04 Drug: Acetaminophen PO 1000 mg PO once Route: PO; kc6 15:36 Follow up: Response: No adverse reaction; Pain is unchanged, physician notified kc6 15:04 Drug: MetoCLOPramide PO 10 mg PO once Route: PO; kc6 15:36 Follow up: Response: No adverse reaction; Nausea is decreased kc6 15:30 Not Given (Other Intervention Used): ns 0.9% 500 ml IV at bolus once; to be given as a kc6 bolus over 30 minutes 15:30 Not Given (Other Intervention Used): ebsgjhlsoeeyscq76 mg IVP once kc6 15:30 Not Given (Other Intervention Used): magnesium sulfate2 grams IVPB once over 30 mins kc6 15:30 Not Given (Patient Refused): dexamethasone 10 mg IM once kc6 15:36 Drug: oxyCODONE PO 10 mg PO once Route: PO; kc6 15:55 Follow up: Response: No adverse reaction; RASS: Alert and Calm (0) kc6 Disposition Summary: 07/03/24 15:26 Discharge Ordered Notes: Location: Home ec2 Condition: Stable ec2 Diagnosis - Headache ec2 - Essential (primary) hypertension ec2 Followup: ec2 - With: Private Physician - When: - Reason: Re-evaluation by your physician Discharge Instructions: - Discharge Summary Sheet ec2 - General Headache Without Cause ec2 Forms: - Medication Reconciliation Form ec2 - Antibiotic Education ec2 - Prescription Opioid Use ec2 - Patient Portal Instructions ec2 - Leadership Thank You Letter ec2 Prescriptions: - Compazine 10 mg Oral Tablet - take 1 tablet ORAL route every 8 hours As needed; 20 tablet; Refills: 0, ec2 Product Selection Permitted Signatures: Dispatcher [employer] Shantal Guerrero RN RN kc6 Corazon Parr RN RN ko1 Theron June MD MD ec2 Corrections: (The following items were deleted from the chart) 13:43 13:41 Home Meds: amlodipine oral; ko1 ko1 15:30 13:42 IV Saline Lock ordered. ec2 kc6
[2024-07-03] MEDS ORDERED: OXYCODONE *CR* 10 MG TAB PO ONE (15:34)
[2024-07-03 16:07] VITALS: TEMP 97
[2024-07-03 16:11] VITALS: O2SAT 97
[2024-07-03 16:15] VITALS: BP 178/105
--- NOTE | 2024-07-07 12:24 | EKG ---
Test Date: 2024-07-03 Test Time: 14:03:35 Life Management Teacher: [place] MEASUREMENT RESULTS: Intervals: Rate: 89 MO: 116 QRSD: 70 QT: 368 QTc: 447 Oran: P: 74 MO: 116 QRS: 75 T: 267 INTERPRETIVE STATEMENTS: Normal sinus rhythm Right atrial enlargement T wave abnormality, consider inferolateral ischemia Abnormal ECG Compared to ECG 05/23/2023 21:01:45 T-wave abnormality now present ST (T wave) deviation no longer present Possible ischemia still present Electronically Signed On 07-07-24 12:17:40 PRODUCTION DEPARTMENT SUPERVISOR by Efrain Bentley
== END 2024-07-03 15:57 | disposition home or self-care (01) ==
LOC: ER 13:25
DX: R51.9 Headache, unspecified (principal); I10 Essential (primary) hypertension
CPT/HCPCS: 36415; 80048; 84484; 85025; 93005; 99284; J1100; J1200; J2765; J3475; J7040

== ENCOUNTER 2024-09-10 15:18 | Emergency (ER) | payer BC, OTHER ==
--- OUTSIDE RECORDS SUMMARY | 2024-09-10 15:38 | XMS REPORT | Continuity of Care Document ---
Author Name Unknown Address [address] [facility] [address] [place] [address] [facility] Address [address] [facility] [address] [place] [address] Care Team Providers Care Community Services Coordinator Name Role Phone NONE, NONE Primary Care Physician Unavailab UMM Daniels Attending Clinician Unavailable UMM MANZANARES Attending Clinician Unavailable Umm Manzanares MD Attending Clinician [phone] LINDSEY CAMERON Attending Clinician Unavailable DR LINDSEY CAMERON Attending Clinician Unavailable JIMY CAMERON Attending Clinician Unavailab JIMY Lewis Attending Clinician Unavailab MK العراقي Attending Clinician Unavailable MK HERNANDEZ Attending Clinician Unavailable Gabriel Garcia MD Attending Clinician [phone] AMI RUSH Attending Clinician Unavailable Edinson Rush MDjun Attending Clinician [phone] KAVITHA SHIPLEY Attending Clinician Unavailable Kavitha Lee Attending Clinician + [phone] Doctor Unassigned, [place] Attending Clinician U deannaailable GC_GCBZW_Kadiyala_S Attending Clinician Unavaila vignesh AMEZQUITA, DR MURDOCK Attending Clinician Unavail able ALIRIO, DR MURDOCK Attending Clinician Unavail able JUDITH, DR MANAN Jamison Attending Clinician Unavaila vignesh WONG, DR MANAN Jamison Attending Clinician Unavaila vignesh LEGGETT, DR TANG Attending Clinician Unavaila vignesh MUNIZ, DR SESAY Attending Clinician Unavailable OREN TOVAR Attending Clinician Unavailable Oren Tovar MD Attending Clinician [phone] ZELDA OLSEN Attending Clinician Unavailable Yuniel Mccray MD Attending Clinician [phone] Zelda Olsen MD Attending Clinician [phone] ANAYA KLINE Attending Clinician Unavailab Ced Suarez MD Attending Clinician [phone] Jaden Siddiqui ENP Attending Clinician [phone] DR LORAINE MELO Attending Clinician Unajagdeep VITAL, DR GONZALES Attending Clinician GABRIEL Vital Attending Clinician Unavailable WILMAR MADISON Attending Clinician Unavaila WILMAR Fragoso Attending Clinician Unavaila ble 1, [facility] Sleep Lab Bed Attending Clinician Unavail able Wilmar Madison MD Attending Clinician + [phone] [place], [facility] Test Attending Clinician Unavailable BRO ANN Attending Clinician Unavailable Bro Mejia Attending Clinician [phone] JADEN SIDDIQUI Attending Clinician Unavailable MAI DEL ROSARIO Attending Clinician Unavailab Mia Greco DO Attending Clinician [phone] JACKLYN GUILLEN Attending Clinician Unavailable Jacklyn Guillen MD Attending Clinician [phone] Marjan Heart RN Attending Clinician [phone] GELY HERNANDEZ Attending Clinician Unavailable Gely Hernandez MD Attending Clinician [phone] TEQWIMTANVIR, WILFRID Attending Clinician Unavailable Gonaslo YI, Maury Borja Attending Clinician [phone] Teqwimuah DO, Wilfrid Attending Clinician + Edelmira Coleman Attending Clinician [phone] Evelin GRAJEDA, Any Fong Attending Clinician Unavail able FLASH KIMBALL Attending Clinician Unavailab pato Talavera MD, Blanca Attending Clinician [phone] Josie YI, Samir Attending Clinician [phone] Faraz Parada MD Attending Clinician [phone] Flash Kimball MD Attending Clinician [phone] GABRIEL SHAIKH Attending Clinician Unavailable GABRIEL SHAIKH [...] Clinician Unavailable Zelda Olsen MD Admitting Clinician [phone] ANAYA KLINE Admitting Clinician Unavailab DR LORAINE Lugo Admitting Clinician Julian VITAL, DR GONZALES Admitting Clinician GABRIEL Vital Admitting Clinician Unavailable BRO ANN Admitting Clinician Unavailable JADEN SIDDIQUI Admitting Clinician Unavailable MAI DEL ROSARIO Admitting Clinician Unavailab JACKLYN Figueroa Admitting Clinician Unavailable GELY HERNANDEZ Admitting Clinician Unavailable Mary YI, Gely Admitting Clinician [phone] TEQWIMUAAndrew, WILFRID Admitting Clinician Unavailable Teqwimtanvir DO, Wilfrid Admitting Clinician + FARAZ PARADA Admitting Clinician Unavailable Faraz Parada MD Admitting Clinician Payers Payer Name Policy Type Policy Number Effective Date Expirati on Date Source MEDICARE PART A \\T\\ B [id number] 2024 00:00:00 [place]um0 [id number] 1959 00:00:00 HIM [employer] BLUE ADVANTAGE HMO [id number] 2023 00:00:00 0111 [id number] 2023 00:00:00 1014 [id number] 1959 00:00:00 Problems Condition Name Condition Details Condition Category Status Onset Date Resolution Date Last Treatment Date Treating Clinician Comments Source Abnormal EKG Abnormal EKG Disease Active 01-15 00:00: 00 [facility] Preop cardiovasc ular exam Preop cardiovasc ular exam Disease Active 515 00:00: 00 [facility] Chest pain, unspecifie d type Chest pain, unspecifie d type Disease Active 3-05 00:00: 00 [facility] SOB (shortness of breath) SOB (shortness of breath) Disease Active 2021-09 0-23 00:00: 00 [facility] Chest pain Chest pain Disease Active 2021-09 0-22 00:00: 00 [facility] Transient alteration of awareness Transient alteration of awareness Disease Active 6-25 00:00: 00 [facility] Transient alteration of awareness Transient alteration of awareness Disease Active 6-25 00:00: 00 [facility] Gastric ulcer Gastric ulcer Disease Active 6-22 00:00: 00 [facility] Pneumonia Pneumonia Disease Active 4-04 00:00: 00 [facility] Acute asthma exacerbati on Acute asthma exacerbati on Disease Active 4-02 00:00: 00 [facility] Sepsis Sepsis Disease Active 3-09 00:00: 00 [facility] Morbid obesity with body mass index of 40.0-49.9 Morbid obesity with body mass index of 40.0-49.9 Disease Active 2-14 00:00: 00 [facility] Obesity (BMI 30-39.9) Obesity (BMI 30-39.9) Disease Active 2-12 00:00: 00 [facility] Acute hypoxemic respirator y failure Acute hypoxemic respirator y failure Disease Active 2-12 00:00: 00 [facility] 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 Disease Active 2-04 00:00: 00 [facility] Dyslipidem ia Dyslipidem ia Disease Active 2-04 00:00: 00 [facility] Gastro-eso phageal reflux disease with esophagiti s, with bleeding Gastro-eso phageal reflux disease with esophagiti s, with bleeding Disease Active 2- 00:00: 00 [facility] Generalize d anxiety disorder Generalize d anxiety disorder Disease Active 2- 00:00: 00 [facility] Pain of cervical spine Pain of cervical spine Disease Active 2 00:00: 00 [facility] Depo-Prove ra contracept lloyd status Depo-Prove ra contracept lloyd status Disease Active 12-14 00:00: 00 [facility] Eczema Eczema Disease Active 04-15 00:00: 00 [facility] Essential hypertensi on Essential hypertensi on Disease Active 04-15 00:00: 00 [facility] Back pain Back pain Disease Active 2 00:00: 00 [facility] Anorgasmia of female Anorgasmia of female Disease Resolve d 2016-09 006 00:00: 00 2018-10-31 00:00:00 2018-10-31 15:39:56 [facility] Allergies, Adverse Reactions, Alerts Allergy Name Allergy Type Status Severity Reaction(s) Onset Date Inactive Date Treating Clinician Comments Source naproxen Propensi ty to adverse reaction to drug Active 03-31 00:00: 00 [facility] IBUPROFE N DRUG INGREDI Active Other-Cmnt 4-09 00:00: 00 [facility] Ibuprofe n Propensi ty to adverse reaction s Active Other - See comments 4-09 00:00: 00 ulcer [facility] IBUPROFE N-ACETAM INOPHEN DRUG Active SOB 2021-09 0-23 00:00: 00 [facility] Ibuprofe n-Acetam inophen Propensi ty to adverse reaction s Active Shortness of Breath 2021-09 0-23 00:00: 00 [facility] Naproxen - Oral Propensi ty to adverse reaction to drug Active 5-28 00:00: 00 [facility] SEAFOOD/ FISH Food Active High Anaphylaxis 4-02 00:00: 00 [facility] Seafood/ Fish Food Allergy Active Anaphylaxis 4-02 00:00: 00 Pts tongue swells/ difficult y breathing [facility] Nsaids (Non-Madan roidal Anti-Inf lammator y Drug) Propensi ty to adverse reaction s Active Unknown - See comments 2-12 00:00: 00 [facility] NSAIDS (NON-MADAN ROIDAL ANTI-INF LAMMATOR Y DRUG) Drug Class Active Unknown-Cmnt 2-12 00:00: 00 [facility] Nsaids (Non-Madan roidal Anti-Inf lammator y Drug) Propensi ty to adverse reaction s Active Unknown - See comments 2-12 00:00: 00 [facility] Nsaids (Non-Madan roidal Anti-Inf lammator y Drug) Propensi ty to adverse reaction s Active Unknown - See comments 2-12 00:00: 00 [facility] Naproxen Propensi ty to adverse reaction to drug Inactiv e 2-22 00:00: 00 [facility] naproxen DA Active SV 2-27 00:00: 00 [facility] Naproxen Drug Allergy Active Other - See comments 7-09 00:00: 00 Swelling of tongueSwe lling of the tongue [facility] Naproxen Propensi ty to adverse reaction s to drug Active Swelling 03-11 00:00: 00 Swelling of tongue [facility] NAPROXEN DRUG INGREDI Active High Swelling 03-11 00:00: 00 [facility] Naproxen DA Active Unknown [facility] Ibuprofe n DA Active Unknown [facility] Social History Social Habit Start Date Stop Date Quantity Comments Source History SDOH Alcohol Std Drinks [facility] History SDOH Alcohol Binge [facility] Alcohol Frequency [facility] Alcoholic beverage intake 2024-03-23 00:00:00 2024-03-23 00:00:00 Current drinker of alcohol (finding) [facility] History of Social function 2024-01-16 00:00:00 2024-01-16 00:00:00 [facility] Exposure to SARS-CoV-2 (event) 2022-11-30 00:00:00 2022-12-10 19:00:00 Not sure [facility] Tobacco Comment 2022-07-25 00:00:00 2022-07-25 00:00:00 30 years ago [facility] Cigarettes smoked current (pack per day) - Reported 2022-07-25 00:00:00 2022-07-25 00:00:00 [facility] Cigarette pack-years 2022-07-25 00:00:00 2022-07-25 00:00:00 [facility] Tobacco use and exposure 2022-07-25 00:00:00 2022-07-25 00:00:00 Smokeless tobacco non-user [facility] Alcohol intake 2021-11-10 00:00:00 2021-11-10 00:00:00 Current drinker of alcohol (finding) [facility] Education 2021-10-15 00:00:00 2021-10-15 00:00:00 12 [facility] Alcohol Comment 2016-12-14 00:00:00 2016-12-14 00:00:00 infrequent - family parties, wine, 12 oz/time [facility] History of tobacco use 1999 00:00:00 2001-12-14 00:00:00 Cigarette Smoker [facility] Sex assigned at 1970 00:00:00 1970 00:00:00 [facility] Smoking Status Start Date Stop Date Source Ex-smoker 2022-07-25 00:00:00 2022-07-25 00:00:00 [facility] Medications Ordered Medication Name Filled Medication Name Start Date Stop Date Current Medication? Ordering Clinician Indication Dosage Frequency Signature (SIG) Comments Components Source morpHINE (4 mg/mL) injection 4 mg 2023-09 05:15: 00 07-08 05:07 :00 No 4mg 4 mg, Slow IV Push, ONCE, 1 dose, On Sun07/07/24 at 2315, STAT [facility] HYDROcodone -acetaminop hen (NORCO 5) tablet 2 tablet 2023-09 03:15: 00 07-08 03:29 :00 No 2{tbl} 2 tablet, Oral, ONCE, 1 dose, On Sun07/07/24 at 2115, Routine [facility] labetaloL (NORMODYNE) 5 mg/mL injection 20 mg 2023-09 01:45: 00 07-08 03:31 :00 No 20mg 20 mg, Slow IV Push, ONCE, 1 dose, On Sun07/07/24 at 1945, SE [facility] metoclopram luz HCl (REGLAN) injection 10 mg 2023-09 01:45: 00 07-08 02:29 :00 No 10mg 10 mg, Slow IV Push, ONCE, 1 dose, On Sun07/07/24 at 1945, SE [facility] amlodipine 10 mg tablet 2023-09 00:00: 00 Yes 1mg [facility] Premarin 1.25 mg tablet 2023-09 00:00: 00 Yes mg [facility] lisinopril 40 mg tablet 2023-09 0 00:00: 00 Yes 1mg [facility] ondansetron 4 mg disintegrat ing tablet 07 00:00: 00 Yes 1mg [facility] triamcinolo ne acetonide 0.1 % topical cream 05-01 00:00: 00 Yes 1% [facility] fluconazole 150 mg tablet 14 00:00: 00 Yes mg [facility] ondansetron 8 mg disintegrat ing tablet 03-31 00:00: 00 Yes 1mg [facility] dexamethaso ne (DECADRON PHOSPHATE) injection 10 mg 03-23 01:00: 00 03-23 00:52 :00 No 10mg 10 mg, Slow IV Push, ONCE, 1 dose, On 03/22/24 at 2000, Routine [facility] cefTRIAXone (ROCEPHIN) 1,000 mg in NaCl 0.9% (NS) 100 mL MINI-BAG 03-23 00:15: 00 03-23 01:38 :00 No 1000mg 1,000 mg, IV Piggyback, ONCE, 1 dose, On 03/22/24 at 1915, Administer over 30 Minutes, 100 mL, Reason for Anti-Infec tive: Documented Infection, Documented Infection Site: Urine, Duration of Therapy: Once (ED) [facility] HYDROcodone -acetaminop hen (NORCO 5) 5-325 mg tablet 1 tablet 03-23 00:00: 00 03-23 00:51 :00 No 1{tbl} 1 tablet, Oral, ONCE, 1 dose, On [facility] (REGLAN) [facility] 10 mg 03-22 23:45: 00 03-22 23:09 :00 No 10mg 10 mg, Slow IV Push, ONCE, 1 dose, On 03/22/24 at 1845, [facility] NaCl 0.9% (NS) bolus infusion 1,000 mL 03-22 23:30: 00 03-23 00:53 :00 No 1000mL at 999 mL/hr, 1,000 mL, IV Infusion, ONCE, 1 dose, On 03/22/24 at 1830, SE [facility] diphenhydrA MINE (BENADRYL) injection 25 mg 03-22 22:45: 00 03-22 23:07 :00 No 25mg 25 mg, Slow IV Push, ONCE, 1 dose, On 03/22/24 at 1745, STAT [facility] acetaminoph en (TYLENOL) tablet 1,000 mg 03-22 12:15: 00 03-22 13:04 :00 No 1000mg 1,000 mg, Oral, ONCE, 1 dose, On 03/22/24 at 0715, SE [facility] cephALEXin (KEFLEX) capsule 500 mg 03-22 12:00: 00 03-22 12:55 :00 No 500mg 500 mg, Oral, ONCE, 1 dose, On 03/22/24 at 0700, SE, Reason for Anti-Infec tive: Empiric Therapy for Suspected Infection, Empiric Therapy Site: HEENT, Duration of therapy: Once (ED) [facility] hydrOXYzine (ATARAX) tablet 25 mg 03-22 12:00: 00 03-22 12:55 :00 No 25mg 25 mg, Oral, ONCE, 1 dose, On 03/22/24 at 0700, SE [facility] acetaminoph en (TYLENOL ARTHRITIS PAIN) 650 mg CR tablet 03-22 00:00: 00 Yes [id number] 650mg Take 1 tablet by mouth every 8 (eight) hours as needed for Pain or Fever. [facility] Dextrometho rphan-Guaif enesin (ROBITUSSIN COUGH-CHEST YONG DM) 10-200 mg Cap 03-22 00:00: 00 Yes [id number] 1{capsu le} Take 1 capsule by mouth 3 (three) times daily as needed for Cough (Congestio n). [facility] loratadine 10 mg tablet 03-22 00:00: 00 Yes [id number] 10mg Take 1 tablet by mouth in the morning. [facility] vitamin C with ruy hips (VITAMIN C) 1,000 mg tablet 03-22 00:00: 00 Yes [id number] 1000mg Take 1 tablet by mouth in the morning. [facility] B Complex Vitamins tablet 03-22 00:00: 00 Yes [id number] 1{tbl} Take 1 tablet by mouth in the morning. [facility] ondansetron 4 mg tablet 03-22 00:00: 00 Yes [id number] 4mg Take 1 tablet by mouth every 8 (eight) hours as needed for Nausea and Vomiting (N/V). [facility] triamcinolo ne 0.5 % cream 03-22 00:00: 00 Yes [id number] Apply to area(s) 3 (three) times daily. [facility] molnupiravi r 200 mg capsule 03-22 00:00: 00 Yes [id number] 800mg Take 4 capsules by mouth every 12 (twelve) hours. [facility] butalbital- acetaminoph en-caff 50-325-40 mg tablet 03-22 00:00: 00 Yes [id number] 1{tbl} Take 1 tablet by mouth every 4 (four) hours as needed for Pain (scale 4-6). [facility] albuterol 90 mcg/actuati on inhaler 03-22 00:00: 00 Yes [id number] 2{puff} Inhale 2 Puffs every 4 (four) hours as needed for Wheezing or Shortness of Breath. [facility] cefdinir 300 mg capsule 03-22 00:00: 00 Yes [id number] 300mg Take 1 capsule by mouth in the morning and 1 capsule in the evening. [facility] oxyCODONE-a cetaminophe n 5-325 mg per tablet 01-15 09:33: 25 Yes every 4 (four) hours as needed. [facility] PREMARIN 1.25 mg tablet 01-15 09:33: 25 Yes 1.25mg Take 1 tablet by mouth in the morning. [facility] carvediloL 25 mg tablet 01-15 09:33: 25 Yes 25mg Take 1 tablet in the morning and 1 tablet in the evening. Take with meals. [facility] hydrOXYzine 25 mg tablet 01-15 09:33: 25 Yes 25mg Take 1 tablet by mouth. [facility] gabapentin 100 mg capsule 01-15 09:33: 25 Yes 100mg Take 1 capsule by mouth in the morning and 1 capsule in the evening. [facility] acetaminoph en-codeine (TYLENOL-CO DEINE #4) 300-60 mg tablet 01-15 09:33: 25 Yes 1{tbl} Take 1 tablet by mouth every 4 (four) hours as needed for Pain. [facility] celecoxib (CELEBREX) 50 mg capsule 01-15 09:33: 25 Yes 50mg Take 1 capsule by mouth in the morning. [facility] lisinopriL 40 mg tablet 01-15 09:30: 05 Yes 40mg Take 1 tablet by mouth in the morning. [facility] XARELTO 10 mg tablet 01-14 00:00: 00 Yes 10mg Take 1 tablet by mouth in the morning. [facility] docusate (COLACE) 100 mg capsule 01-14 00:00: 00 Yes daily. [facility] CYCLOBENZAP RINE HCL 10 MG TABS 01-14 00:00: 00 Yes [facility] XARELTO 10 MG TABS 01-14 00:00: 00 Yes [facility] HYDROCO/APA P 5-325MG 01-14 00:00: 00 Yes [facility] nitrofurant oin macrocrysta l 100 mg capsule 01-08 00:00: 00 Yes 1mg [facility] lisinopril 40 mg tablet 01-02 00:00: 00 Yes 1mg [facility] melatonin 10 mg tablet 01-02 00:00: 00 Yes 1mg [facility] lisinopril 40 mg tablet 0 4-29 00:00: 00 Yes 1mg [facility] Myers PREDNISONE 20 MG TABS 0 4-24 00:00: 00 Yes [facility] OXYCOD/APAP 5-325MG 0 4-12 00:00: 00 Yes [facility] Myers Premarin 1.25 mg tablet 0 4-08 00:00: 00 Yes mg [facility] Myers lisinopril 30 mg tablet 0 4-08 00:00: 00 Yes 1mg [facility] Myers NORTRIPTYLI NE HCL 25 MG 0 -22 00:00: 00 Yes [facility] CELECOXIB 200 MG 0 -22 00:00: 00 Yes [facility] Myers TAKE 1 TABLET BY MOUTH EVERY 8 HOURS NEEDED 0 -22 00:00: 00 Yes D[facility]ne Myers TAKE 1 TABLET BY MOUTH DAILY 0 -22 00:00: 00 Yes 500 D[facility]ne Myers TAKE 1 TABLET BY MOUTH EVERY 8 HOURS NEEDED 0 2-28 00:00: 00 Yes D[facility] Myers TAKE 1 TABLET BY MOUTH EVERY 8 HOURS NEEDED 0 1-30 00:00: 00 Yes D[facility] Myers TAKE 1 TABLET BY MOUTH EVERY DAY 0 -30 00:00: 00 Yes D[facility]ne Myers TAKE 1 CAPSULE BY MOUTH EVERY 8 HOURS. 0 1-30 00:00: 00 Yes [facility] Myers ALPRAZOLAM 0.5 MG TABS 0 -27 00:00: 00 Yes [facility]ne Myers TAKE 1/2 TO 1 TABLET BY MOUTH DAILY AT BEDTIME NEEDED 0 -27 00:00: 00 Yes D[facility] Myers TAKE 1 TABLET DAILY. 0 -23 00:00: 00 Yes 20 [facility] Myers TAKE 1 TABLET EVERY 12 HOURS DAILY. 0 09-25 00:00: 00 01-15 00:00 :00 No 1 [facility] Myers ONE TABLET ORALLY Q 8 HOURS PRN 0 -23 00:00: 00 01-15 00:00 :00 No 8 [facility] Myers TAKE 1 TABLET BY MOUTH EVERY 8 HOURS NEEDED 0 -10 00:00: 00 Yes D[facility]ne Myers TAKE 1 TABLET BY MOUTH EVERY DAY 0 1-10 00:00: 00 Yes [facility] ONDANSETRON 4 MG TBDP 1-10 00:00: 00 Yes [facility] Myers METHOCARBAM OL 500 MG TABS 1-03 00:00: 00 Yes [facility] Myers CELECOXIB 200 MG 1-03 00:00: 00 Yes [facility] Myers GABAPENTIN 300 MG 1- 00:00: 00 Yes 300 D[facility] Myers NORTRIPTYLI NE HCL 25 MG 1- 00:00: 00 Yes 25 D[facility] Myers TAKE 1 CAPSULE BY MOUTH EVERYDAY AT BEDTIME 2022-09 2- 00:00: 00 Yes [facility] Myers Premarin 1.25 mg tablet 2022-09 2- 00:00: 00 Yes mg [facility] Myers TAKE 1 TABLET BY MOUTH EVERY DAY NEEDED 2022-09 2-20 00:00: 00 Yes [facility] Myers PREMPRO 0.625-5 2022-09 2-18 00:00: 00 Yes [facility] Myers FAMOTIDINE 40MG 2022-09 2-17 00:00: 00 Yes [id number] D[facility]ne Myers TAKE 1 TABLET DAILY. 2022-09 2-15 00:00: 00 01-15 00:00 :00 No [id number] D[facility]ne Myers ARIPIPRAZOL E 5MG 2022-09 2-12 00:00: 00 Yes 5 [facility] OXYCOD/APAP 5-325MG 2022-09 2-03 00:00: 00 Yes D[facility] Myers PREMPRO .625-2.5 2022-09-28 00:00: 00 Yes D[facility] Myers GABAPENTIN 300MG 2022-09- 00:00: 00 Yes [facility] Myers ZOLPIDEM 10MG 2022-09- 00:00: 00 Yes D[facility] Myers TAKE 1 CAPSULE BY MOUTH EVERYDAY AT BEDTIME 2022-09 1- 00:00: 00 Yes D[facility]ne Myers TAKE 1 TABLET BY MOUTH EVERY DAY 2022-09 1- 00:00: 00 Yes [facility] ALPRAZOLAM 0.5MG 2022-09- 00:00: 00 Yes 500 D[facility]ne Myers TAKE 1 TABLET BY MOUTH EVERY 8 HOURS NEEDED...DU E 12-3 2022-09 00:00: 00 Yes D[facility]ne Myers TAKE 1 TABLET DAILY. 2022-09 00:00: 00 01-15 00:00 :00 No [id number] D[facility] Myers METHOCARBAM 500MG 2022-09 00:00: 00 Yes [id number] D[facility] Myers TAKE 1 TABLET DAILY. 2022-09 00:00: 00 01-15 00:00 :00 No 20 [facility] Myers TAKE 1 TABLET DAILY. 2022-09 00:00: 00 01-15 00:00 :00 No 20 [facility] OXYCOD/APAP 5-325MG 2022-09 00:00: 00 Yes [facility] Myers ADMINISTER 1 SPRAY INTO ONE NOSTRIL. CALL 911. REPEAT AFTER 2-3 MIN IF NO OR MINIMAL RESPONSE 2022-0930 00:00: 00 Yes [facility] Myers METHOCARBAM 500MG 2022-09 0-30 00:00: 00 Yes Dwayne Myers TAKE 1 CAPSULE BY MOUTH EVERYDAY AT BEDTIME 2022-09 030 00:00: 00 Yes [facility] Myers ZOLPIDEM 10MG 2022-0927 00:00: 00 Yes [id number] D[facility] Myers ALPRAZOLAM 0.5MG 2022-09 0-24 00:00: 00 Yes 500 Dwayne Myers TAKE 1 TABLET DAILY. 2022-09 0-24 00:00: 00 01-15 00:00 :00 No [...] FUROSEMIDE 40MG 2022-09 0-09 00:00: 00 Yes [id number] D[facility] Myers OXYCOD/APAP 7.5-325 2022-09 0-05 00:00: 00 Yes [facility] Myers PREDNISONE 50MG 2022-09 0-02 00:00: 00 Yes D[facility]ne Myers BUT/APAP/CA F 300MG 2022-09 0-02 00:00: 00 Yes D[facility] Myers CARISOPRODO L 350MG 2022-09 0- 00:00: 00 Yes [facility] CELECOXIB 200MG 2022-09 0- 00:00: 00 Yes [facility] Myers AMLODIPINE 5MG 2022-09 0- 00:00: 00 01-15 00:00 :00 No [facility] Myers TAKE 1-2 TABLETS EVERY 4 HOURS NEEDED FOR HEADACHE 2022-09 0- 00:00: 00 Yes D[facility] Myers TAKE 1 TABLET BY MOUTH EVERY DAY FOR 3 DAYS 2022-09 0- 00:00: 00 Yes D[facility] Myers TAKE 1 TABLET BY MOUTH EVERY 6 HOURS NEEDED MUSCLE SPASM 2022-09 0- 00:00: 00 Yes D[facility] Myers TAKE 1 TABLET BY MOUTH EVERY DAY 2022-09 0- 00:00: 00 01-15 00:00 :00 No [facility] Myers NIFEDIPIN CC 60MG ER 05-31 00:00: 00 Yes D[facility] Myers CARVEDILOL 25MG 0 - 00:00: 00 Yes [facility] Myers ATORVASTATI N 40MG 0 - 00:00: 00 Yes D[facility]ne Myers TAKE 1 TABLET BY MOUTH TWICE A DAY 0 05-25 00:00: 00 Yes D[facility] Myers DULOXETINE 30MG DR - 00:00: 00 Yes Dwayne Myers TAKE 1 TABLET BY MOUTH EVERY DAY NEEDED 2022-0 - 00:00: 00 Yes D[facility]ne Myers TAKE 1/2 TO 1 TABLET BY MOUTH DAILY AT BEDTIME NEEDED 2022-0 05-23 00:00: 00 Yes [facility] Myers FAMOTIDINE 40MG 0 9-18 00:00: 00 Yes [facility] Myers ARIPIPRAZOL E 5MG 0 9-12 00:00: 00 Yes D[facility] Myers BACLOFEN 10MG 0 9-09 00:00: 00 Yes [facility] Myers OXYCOD/APAP 5-325MG 0 9-05 00:00: 00 Yes D[facility] Myers TAKE 1 CAPSULE BY MOUTH EVERY 8 HOURS 0 9-05 00:00: 00 Yes D[facility]ne Myers TAKE 1 TABLET BY MOUTH EVERY 12 HOURS 0 - 00:00: 00 Yes [facility] Myers CARISOPRODO L 350MG 0 9- 00:00: 00 Yes [facility] Myers METHYLPRED 4MG DPAK - 00:00: 00 Yes D[facility] Myers APAP/CODEIN E 300-30MG 0 - 00:00: 00 Yes [facility] Myers PAROXETINE 10MG HCL - 00:00: 00 Yes D[facility] Myers TAKE DIRECTED INSIDE THE PACKAGE 05-04 00:00: 00 Yes Dwayne Myers TAKE 1 TABLET BY MOUTH EVERY 6 HOURS NEEDED FOR MUSCLE SPAM 9 00:00: 00 Yes Dwayne Myers TAKE 1-2 TABLETS BY MOUTH EVERY 6 HOURS NEEDED ACUTE PAIN 0 9- 00:00: 00 Yes Dway[facility] Myers TAKE 1 TABLET DAILY. 8-31 00:00: 00 01-15 00:00 :00 No 50 [facility] Myers ZOLPIDEM 10MG 0 8-30 00:00: 00 Yes D[facility]ne Myers TAKE 1 TABLET BY MOUTH DAILY 0 8-28 00:00: 00 01-15 00:00 :00 No [id number] D[facility] Myers TAKE 1 TABLET DAILY. 0 8-24 00:00: 00 01-15 00:00 :00 No 50 D[facility] Myers TAKE 1/2 TABLET BY MOUTH DAILY 0 8-22 00:00: 00 01-15 00:00 :00 No 25 [facility] Myers PREDNISONE 5MG 0 8-17 00:00: 00 Yes [facility] Myers CEFDINIR 300MG 2023-0 8-13 00:00: 00 Yes Dwayne Myers TAKE 1 CAPSULE BY MOUTH EVERY 12 HOURS FOR 7 DAYS 2023-0 8-12 00:00: 00 Yes D[facility] Myers CELECOXIB 200MG 2023-0 8-09 00:00: 00 Yes [facility] Myers OXYCOD/APAP 5-325MG 2023-0 8-08 00:00: 00 Yes Dwayne Myers TAKE 1 TABLET BY MOUTH EVERY 12 HOURS 2023-0 8-08 00:00: 00 Yes D[facility] Myers BACLOFEN 10MG 2023-0 8-07 00:00: 00 Yes [id number] D[facility] Myers GABAPENTIN 300MG 2023-0 8-05 00:00: 00 Yes [id number] Dwayne Myers ALPRAZOLAM 0.5MG 3-0 7-31 00:00: 00 Yes 500 Dwayne Myers DULOXETINE 30MG DR 3-0 7-26 00:00: 00 Yes Dwayne Myers TAKE 5-10 MG BY MOUTH DAILY AT BEDTIME NEEDED 3-0 7-26 00:00: 00 Yes Dwayne Myers TAKE 1/2 TABLET BY MOUTH DAILY 3-0 7-26 00:00: 00 Yes Dwayne Myers PREDNISONE 5MG 3-0 7-19 00:00: 00 Yes 5000 Dwayne Myers OXYCOD/APAP 5-325MG 3-0 7-14 00:00: 00 Yes Dwayne Myers TAKE 1 TABLET BY MOUTH EVERY 8 HOURS NEEDED 3-0 7-13 00:00: 00 Yes Dwayne Myers FUROSEMIDE 40MG 3-0 7-12 00:00: 00 Yes Dwayne Myers TAKE 1 TABLET BY MOUTH EVERY 12 HOURS 3-0 7-11 00:00: 00 Yes Dwayne Myers GABAPENTIN 300MG 3-0 7-09 00:00: 00 Yes Dwayne Myers ALPRAZOLAM 0.5MG 3-0 7-02 00:00: 00 Yes 500 Dwayne Myers ARIPIPRAZOL E 5MG 2023-0 6-30 00:00: 00 Yes 5000 Dwayne Myers TAKE 1 TABLET BY MOUTH EVERY DAY NEEDED 3-0 6-29 00:00: 00 Yes Dwayne Myers TAKE 1/2 TABLET BY MOUTH DAILY 03-01 00:00: 00 Yes Dwayne Myers FAMOTIDINE 40MG 0 02-22 00:00: 00 Yes Dwayne Myers PREDNISONE 5MG 0 02-22 00:00: 00 Yes 5000 Dwayne Myers APAP/CODEIN E #4 0 02-22 00:00: 00 Yes Dwayne Myers CARVEDILOL 25MG 0 02-20 00:00: 00 Yes Dwayne Myers NIFEDIPIN CC 60MG ER 0 02-20 00:00: 00 Yes Dwayne Myers CELECOXIB 200MG 0 02-16 00:00: 00 Yes Dwayne Myers BACLOFEN 10MG 0 02-13 00:00: 00 Yes [id number] Dwayne Myers TAKE 1 TABLET BY MOUTH EVERY 8 HOURS NEEDED FOR PAIN 0 02-13 00:00: 00 Yes Dwayne Myers TAKE 1 CAPSULE BY MOUTH EVERY DAY 0 02-13 00:00: 00 Yes Dwayne Myers GABAPENTIN 300MG 0 02-12 00:00: 00 Yes Dwayne Myers PREMARIN VAG CRE 02-05 00:00: 00 Yes Dwayne Myers INSERT 0.5 GRAM INTRAVAGINA LLY DAILY. ( 3 WEEKS ON. 1 WEEK OFF ). 02-04 00:00: 00 01-15 00:00 :00 No 625 Dwayne Myers TAKE 1 TABLET EVERY MORNING. 02-04 00:00: 00 01-15 00:00 :00 No 10 Dwayne Myers ARIPIPRAZOL E 5MG 0 02-03 00:00: 00 Yes 5000 Dwayne Myers APAP/CODEIN E #4 0 01-23 00:00: 00 Yes Dwayne Myers TAKE 1 CAPSULE BY MOUTH EVERY 8 HOURS 0 01-23 00:00: 00 Yes Dwayne Myers BACLOFEN 10MG 0 17 00:00: 00 Yes [id number] Dwayne Myers TAKE 1 CAPSULE BY MOUTH EVERY 8 HOURS 0 17 00:00: 00 Yes Dwayne Myers TAKE 1 CAPSULE BY MOUTH EVERY DAY 0 01-17 00:00: 00 Yes Dwayne Myers PREDNISONE 5MG 2023-0 5-08 00:00: 00 Yes [id number] Dwayne Myers LISINOPRIL 20MG 2022-0 5-07 00:00: 00 01-15 00:00 :00 No Dwayne Myers TAKE 1 TABLET BY MOUTH EVERY 12 HOURS NEEDED FOR PAIN 3-0 5- 00:00: 00 Yes Dwayne Myers TAKE 1 TABLET EVERY MORNING. 2022-0 5- 00:00: 00 01-15 00:00 :00 No 10 Dwayne Myers ALPRAZOLAM 0.5MG 2022-0 -26 00:00: 00 Yes 500 Dwayne Myers DULOXETINE 20MG DR 2022-0 - 00:00: 00 Yes Dwayne Myers TAKE 1 TABLET BY MOUTH EVERYDAY AT BEDTIME 2022-0 -26 00:00: 00 Yes Dwayne Myers ARIPIPRAZOL E 5MG 2022-0 -26 00:00: 00 Yes 5000 Dwayne Myers TAKE 1 TABLET BY MOUTH EVERY 8 HOURS 2022-0 -25 00:00: 00 Yes Dwayne Myers BACLOFEN 10MG 2022-0 -23 00:00: 00 Yes [id number] Dwayne Myers TAKE 1 TABLET BY MOUTH EVERY DAY FOR 90 DAYS 2022-0 -21 00:00: 00 Yes Dwayne Myers LISINOPRIL 40MG 2022-0 -21 00:00: 00 Yes Dwayne Myers TAKE 1 TABLET BY MOUTH TWICE A DAY WITH FOOD FOR 90 DAYS 2022-0 -21 00:00: 00 Yes Dwayne Myers SPIRONOLACT 50MG 2022-0 4-17 00:00: 00 Yes [id number] Dwayne Myers PREDNISONE 10MG 3-0 4-16 00:00: 00 Yes [id number] Dwayne Myers TAKE 1 TABLET BY MOUTH EVERY 8 HOURS 2022-0 4-14 00:00: 00 Yes Dwayne Myers TAKE 1 TABLET BY MOUTH EVERY 12 HOURS 2022-0 4-14 00:00: 00 Yes Dwayne Myers ONDANSETRON 4MG 3-0 4-14 00:00: 00 Yes 4000 Dwayne Myers TAKE 1 CAPSULE BY MOUTH EVERY DAY 2022-0 4-14 00:00: 00 Yes Dwayne Myers ondansetron (ZOFRAN-ODT ) disintegrat ing tablet 4 mg 12-11 02:30: 00 12-11 01:43 :00 No 4mg 4 mg, Oral, ONCE, 1 dose, On 12/10/22 at 2130, [facility] predniSONE (DELTASONE) tablet 40 mg 12-11 01:45: 00 12-11 01:43 :00 No 40mg 40 mg, Oral, ONCE, 1 dose, On 12/10/22 at 204, [facility] HYDROcodone -acetaminop hen (NORCO 5) 5-325 mg tablet 1 tablet 12-11 01:45: 00 12-11 01:43 :00 No 1{tbl} 1 tablet, Oral, ONCE, 1 dose, On 12/10/22 at 2044, [facility] PREDNISONE 20MG 12-11 00:00: 00 Yes Dwayne Myers ONDANSETRON 4MG ODT 12-11 00:00: 00 Yes 4000 Dwayne Myers SPIRONOLACT 25MG 12-11 00:00: 00 Yes [id number] Dwayne Myers TAKE 2 TABLETS BY MOUTH EVERY MORNING FOR 5 DAYS 12-10 00:00: 00 Yes Dwayne Myers DISSOLVE 1 TABLET ON OR UNDER TONGUE EVERY 4 HOURS NEEDED FOR NAUSEA AND VOMITING 12-10 00:00: 00 Yes Dwayne Myers ondansetron 4 mg disintegrat ing tablet 12-10 00:00: 00 Yes [id number] 4mg Take 1 tablet by mouth every 4 (four) hours as needed for Nausea and Vomiting (N/V). [facility] predniSONE 20 mg tablet 12-10 00:00: 00 12-16 04:59 :00 No [id number] 40mg Take 2 tablets by mouth in the morning for 5 days. [facility] PREDNISONE 5MG 2022-- 00:00: 00 Yes 5000 Dwayne Myers TAKE 1 CAPSULE BY MOUTH EVERY DAY - 00:00: 00 Yes Dwayne Myers TAKE 1 EVERY 8 HOURS 11-28 00:00: 00 Yes Dwayne Myers GABAPENTIN 300MG 11-28 00:00: 00 Yes [id number] Dwayne Myers DICLOFEN SOD 100MG ER 11-24 00:00: 00 Yes [id number] Dwayne Myers ALPRAZOLAM 0.5MG 11-23 00:00: 00 [...] Myers PREDNISONE 10MG 11-18 00:00: 00 Yes [id number] Dwayne Myers PANTOPRAZOL E 40MG DR 11-08 00:00: 00 Yes Dwayne Myers 1 TABLET(S) EVENING ORAL 11-08 00:00: 00 Yes Dwayne Myers PREDNISONE 5MG 11-06 00:00: 00 Yes Dwayne Myers FUROSEMIDE 20MG 11-06 00:00: 00 Yes Dwayne Myers carvediloL (COREG) tablet 3.125 mg 11-05 23:00: 00 Yes 3.125mg 3.125 mg, Oral, BID MEALS, First dose on 11/05/22 at 1700, Until Discontinu ed, Routine [facility] enoxaparin (LOVENOX) injection 40 mg 11-05 23:00: 00 Yes 40mg 40 mg, Subcutaneo us, DAILY, First dose on 11/05/22 at 1700, Until Discontinu ed, Routine [facility] hydrOXYzine 25 mg tablet 11-05 17:13: 13 Yes 25mg Take 1 tablet by mouth. [facility] lisinopriL 20 mg tablet 11-05 17:13: 13 Yes 20mg Take 1 tablet by mouth in the morning. [facility] gabapentin 100 mg capsule 11-05 17:13: 13 Yes 100mg Take 1 capsule by mouth in the morning and 1 capsule in the evening. [facility] acetaminoph en-codeine (TYLENOL-CO DEINE #4) 300-60 mg tablet 11-05 17:13: 13 Yes 1{tbl} Take 1 tablet by mouth every 4 (four) hours as needed for Pain. [facility] celecoxib (CELEBREX) 50 mg capsule 11-05 17:13: 13 Yes 50mg Take 1 capsule by mouth in the morning. [facility] amLODIPine (NORVASC) tablet 10 mg 11-05 15:00: 00 Yes 10mg 10 mg, Oral, DAILY, First dose on Sun11/05/22 at 0900, Until Discontinu ed, Routine [facility] metoprolol tartrate (LOPRESSOR) tablet 25 mg 11-05 14:00: 00 11-05 17:41 :07 No 25mg 25 mg, Oral, TID, First dose on Sun11/05/22 at 0800, Until Discontinu ed, Routine [facility] traMADoL (ULTRAM) tablet 50 mg 11-05 13:36: 11 11-07 13:35 :11 No 50mg 50 mg, Oral, Q6HPRN, Starting on Sun11/05/22 at 0736, Until Sun11/07/22 at 0735, Routine, Pain (scale 7-10) [facility] ondansetron (ZOFRAN (PF)) injection 4 mg 11-05 13:35: 52 11-07 13:34 :52 No 4mg 4 mg, Slow IV Push, Q6HPRN, Starting on Sun11/05/22 at 0735, Until Sun11/07/22 at 0734, Routine, Nausea and Vomiting (N/V) [facility] acetaminoph en (TYLENOL) tablet 650 mg 11-05 11:26: 43 Yes 650mg 650 mg, Oral, Q6HPRN, Starting on Sun11/05/22 at 0526, Until Discontinu ed, Routine, Pain (scale 1-3) [facility] zolpidem (AMBIEN) tablet 10 mg 11-05 11:25: 41 Yes 10mg 10 mg, Oral, QHSPRN, Starting on Sun11/05/22 at 0525, Until Discontinu ed, Routine, Insomnia [facility] ALPRAZolam (XANAX) tablet 1 mg 11-05 11:25: 00 Yes 1mg 1 mg, Oral, TIDPRN, Starting on Sun11/05/22 at 0525, Until Discontinu ed, Routine, Anxiety [facility] morpHINE (4 mg/mL) injection 4 mg 11-05 10:45: 00 11-05 10:08 :00 No 4mg 4 mg, Slow IV Push, ONCE, 1 dose, On Sun11/05/22 at 0445, [facility] proMETHazin e (PHENERGAN) 12.5 mg in NS 50 mL IV piggyback (CNR) 11-05 09:15: 00 11-05 10:05 :00 No 12.5mg 12.5 mg, IV Piggyback, at 200 mL/hr Administer over 15 Minutes, ONCE, 1 dose, On Sun11/05/22 at 0315, SE [facility] iopamidol (ISOVUE 370-500 mL) injection 85 mL 11-05 08:55: 00 11-05 09:15 :00 No [id number] 85mL 85 mL, Intravenou s, ONCE, 1 dose, On 11/05/22 at 0315, Routine [facility] ondansetron (ZOFRAN (PF)) injection 4 mg 11-05 05:00: 00 11-05 07:12 :00 No 4mg 4 mg, Slow IV Push, ONCE, 1 dose, On 11/04/22 at 2300, SE [facility] morpHINE (4 mg/mL) injection 4 mg 305 05:00: 00 11-05 07:12 :00 No 4mg 4 mg, Slow IV Push, ONCE, 1 dose, On 11/04/22 at 2300, [facility] CARVEDILOL 305 00:00: 00 Yes Dwayne Myers carvediloL 3.125 mg tablet 11-05 00:00: 00 12-06 04:59 :00 No [id number] 3.125mg Take 1 tablet by mouth in the morning and 1 tablet in the evening. Take with meals. Do all this for 30 days. [facility] ONDANSETRON 4MG ODT 24 00:00: 00 Yes Dwayne Myers BACLOFEN 10MG 2-17 00:00: 00 Yes Dwayne Myers CELECOXIB 200MG 2-16 00:00: 00 Yes [id number] Dwayne Myers DICLOFEN SOD 100MG ER 2-16 00:00: 00 Yes [id number] Dwayne Myers GABAPENTIN 300MG 2-16 00:00: 00 Yes [id number] Dwayne Myers TAKE 1 EVERY 8 HOURS - 00:00: 00 Yes Dwayne Myers PREDNISONE 10MG -15 00:00: 00 Yes [id number] Dwayne Myers LISINOPRIL 20MG 2- 00:00: 00 01-15 00:00 :00 No Dwayne Myers TAKE 1 TABLET DAILY. 10-02 00:00: 00 01-15 00:00 :00 No 20 Dwayne Myers APAP/CODEIN E #4 -24 00:00: 00 Yes Dwayne Myers TAKE 1 TABLET DAILY. 09-25 00:00: 00 No 20 TAKE 1 TABLET DAILY. 09-25 00:00: 00 01-15 00:00 :00 No 20 Dwayne Myers METHOCARBAM 500MG - 00:00: 00 Yes Dwayne Myers TAKE 1 TABLET BY MOUTH EVERY 8 HOURS NEEDED 2023-0 1-19 00:00: 00 Yes Dwayne Myers TAKE 1 CAPSULE BY MOUTH EVERY 8 HOURS 2022-0 1-19 00:00: 00 Yes Dwayne Myers TAKE 1 TABLET DAILY. 0 1-19 00:00: 00 No 10 METHOCARBAM 500MG 2022-0 1-19 00:00: 00 No TAKE 1 TABLET DAILY. 0 1- 00:00: 00 No 10 METHOCARBAM 500MG 2022-0 - 00:00: 00 No TAKE 1 TABLET DAILY. 0 - 00:00: 00 01-15 00:00 :00 No 10 Dwayne Myers DICLOFEN SOD 100MG ER 2022-0 1-18 00:00: 00 Yes Dwayne Myers TAKE 1 TABLET BY MOUTH EVERY DAY FOR 90 DAYS 2022-0 -18 00:00: 00 Yes Dwayne Myers DICLOFEN SOD 100MG ER 2022-0 1-18 00:00: 00 No DICLOFEN SOD 100MG ER 2022-0 -18 00:00: 00 No TAKE 1 TABLET BY MOUTH EVERY DAY FOR 90 DAYS 2022-0 -18 00:00: 00 No FAMOTIDINE 40MG 3-0 1-13 00:00: 00 Yes Dwayne Myers SPIRONOLACT 25MG 3-0 1-13 00:00: 00 Yes Dwayne Myers TAKE 1 TABLET BY MOUTH EVERY 8 HOURS NEEDED 2022-0 1-13 00:00: 00 Yes Dwayne Myers FAMOTIDINE 40MG 3-0 1-13 00:00: 00 No SPIRONOLACT 25MG 3-0 1-13 00:00: 00 No TAKE 1 TABLET BY MOUTH EVERY 8 HOURS NEEDED 3-0 1-13 00:00: 00 No FAMOTIDINE 40MG 3-0 1-13 00:00: 00 No SPIRONOLACT 25MG 3-0 1-13 00:00: 00 No TAKE 1 TABLET BY MOUTH EVERY 8 HOURS NEEDED 2022-0 1-13 00:00: 00 No TAKE 1 CAPSULE BY MOUTH ONE TIME PER WEEK 2022-0 1-07 00:00: 00 Yes Dwayne Myers TAKE 1 CAPSULE BY MOUTH ONE TIME PER WEEK 2022-0 1-07 00:00: 00 No TAKE 1 CAPSULE BY MOUTH ONE TIME PER WEEK 0 09-09 00:00: 00 No TAKE 1 TABLET [...] BEDTIME NEEDED FOR PAIN 2021-09 00:00: 00 Yes Dwayne Myers TAKE 1 TABLET BY MOUTH AT BEDTIME NEEDED FOR PAIN 2021-09 00:00: 00 No TAKE 1 TABLET BY MOUTH AT BEDTIME NEEDED FOR PAIN 2021-09 00:00: 00 No VITAMIN D3 50,000IU 2021-09 00:00: 00 Yes Dwayne Myers CYCLOBENZAP RINE HYDROCHLO 10MG TAB 2021-09 00:00: 00 Yes Dwayne Myers TAKE 2 PUFFS BY MOUTH EVERY 4 TO 6 HOURS 2021-09 00:00: 00 Yes Dwayne Myers TAKE 1 TABLET BY MOUTH TWICE A DAY FOR 30 DAYS 2021-09 00:00: 00 Yes Dwayne Myers TIZANIDINE 2MG TAB 2021-09 00:00: 00 Yes Dwayne Myers GABAPENTIN 300MG 2021-09 00:00: 00 Yes Dwayne Niurka Louis PLEASE SEE ATTACHED FOR DETAILED DIRECTIONS 2021-09 00:00: 00 Yes Dwayne Myers TAKE 1 CAPSULE BY MOUTH EVERY DAY 2021-09 00:00: 00 Yes Dwayne Myers ZOLPIDEM TARTRATE 10MG TAB 2021-09 00:00: 00 Yes Dwayne Niurka Myers SPIRONOLACT 50MG TAB 2021-09 00:00: 00 Yes Dwayne Myers BUSPIRONE HYDROCHLORI DE 5MG TAB 2021-09 00:00: 00 Yes Dwayne Myers BREO ELLIPTA 200-25 INH 2021-09 00:00: 00 Yes Dwayne Myers Dose Unknown 2021-09 00:00: 00 Yes Dwayne Myers TAKE 1 TABLET BY MOUTH EVERY DAY 2021-09 00:00: 00 Yes Dwayne Myers METFORMIN ER 500MG GP TAB 2021-09 00:00: 00 Yes Dwayne Myers PREDNISONE 10MG TAB 2021-09 00:00: 00 Yes Dwayne Myers LOSARTAN/HC T 50-12.5 TAB 2021-09 00:00: 00 Yes Dwayne Myers Dose Unknown 2021-09 00:00: 00 Yes Dwayne Myers ARIPIPRAZOL E 5MG TAB 2021-09 00:00: 00 Yes Dwayne Myers PLEASE SEE ATTACHED FOR DETAILED DIRECTIONS 2021-09 00:00: 00 Yes Dwayne Myers Dose Unknown 2021-09 00:00: 00 Yes Dwayne Myers TAKE 1 TABLET BY MOUTH EVERY DAY FOR 30 DAYS 2021-09 00:00: 00 Yes Dwayne Myers TAKE 1 TABLET BY MOUTH EVERY 8 HOURS 2021-09 00:00: 00 Yes Dwayne Myers TAKE 6 TABLETS ON DAY 1 DIRECTED ON PACKAGE AND DECREASE BY 1 TAB EACH DAY FOR A TOTAL OF 6 DAYS 2021-09 00:00: 00 Yes Dwayne Myers METHOCARBAM OL 750MG TAB 2021-09 00:00: 00 Yes Dwayne Myers HYDROCHLORO THIAZIDE 12.5MG 2021-09 00:00: 00 Yes Dwayne Myers Dose Unknown 2021-09 00:00: 00 Yes Dwayne Myers Dose Unknown 2021-09 00:00: 00 Yes 4 Dwayne Myers Dose Unknown 2021-09 00:00: 00 Yes Dwayne Myers ACETAMINOPH EN/CODEINE #3 TAB 2021-09 00:00: 00 Yes Dwayne Myers HYDROCODONE BITARTRATE/ AC 5-325MG TAB 2021-0914 00:00: 00 Yes Dwayne Myers Dose Unknown 2021-09 214 00:00: 00 Yes Dwayne Myers TAKE 1 TABLET BY MOUTH TWICE A DAY NEEDED 2021-0914 00:00: 00 Yes 4 Dwayneomayra Myers Dose Unknown 2021-09 2 00:00: 00 Yes 4 Dwayne Myers TAKE 1 TABLET BY MOUTH EVERY DAY 2021-09 00:00: 00 Yes Dwayne Niurka Louis Dose Unknown 2021-09 00:00: 00 Yes Dwayne F Louis Dose Unknown 2021-09 00:00: 00 Yes Dwayne F Louis Dose Unknown 2021-09 00:00: 00 Yes Dwayne Niurka Louis Dose Unknown 2021-09 00:00: 00 Yes Dwayne Myers BENZONATATE 100MG 2021-09 00:00: 00 Yes 100 Dwayne Myers TAKE 1 TABLET BY MOUTH EVERY DAY 2021-09 00:00: 00 Yes 4 Dwayneomayra Myers Dose Unknown 2021-09 00:00: 00 Yes Dwayne Niurka Louis Dose Unknown 2021-09 00:00: 00 Yes Dwayne Niurka Louis Dose Unknown 2021-09 00:00: 00 Yes Dwayne F Louis Dose Unknown 2021-09 00:00: 00 Yes Dwayne Niurka Louis Dose Unknown 2021-09 00:00: 00 Yes Dwayne Niurka Myers Dose Unknown 2021-09 00:00: 00 Yes Dwayne Myers VITAMIN [...] 2021-09 00:00: 00 No BENZONATATE 100MG 2021-09 00:00: 00 No 100 TAKE 1 TABLET BY MOUTH EVERY DAY 2021-09 00:00: 00 No 4 Dose Unknown 2021-09 00:00: 00 No Dose Unknown 2021-09 00:00: 00 No Dose Unknown 2021-09 00:00: 00 No Dose Unknown 2021-09 00:00: 00 No VITAMIN D3 50,000IU [...] 2021-09 00:00: 00 No BENZONATATE 100MG 2021-09 00:00: 00 No 100 TAKE 1 TABLET BY MOUTH EVERY DAY 2021-09 2-14 00:00: 00 No 4 Dose Unknown 2021-09 2-14 00:00: 00 No Dose Unknown 2021-09 2-14 00:00: 00 No Dose Unknown 2021-09 2-14 00:00: 00 No Dose Unknown 2021-09 2-14 00:00: 00 No ZOLPIDEM ER 12.5MG 2021-09 2- 00:00: 00 Yes Dwayne Myers ZOLPIDEM ER 12.5MG 2021-09 2- 00:00: 00 No ZOLPIDEM ER 12.5MG 2021-09 2 00:00: 00 No TAKE 1 TABLET BY MOUTH EVERY 12 HOURS FOR 7 DAYS 2021-09 00:00: 00 Yes 4 Dwayne Myers TAKE [...] METOPROL TAR 25MG 2021-09 00:00: 00 No 25 TAKE 1 TABLET [...] TWICE A DAY 2021-09 2 00:00: 00 Yes 5 Dwayne Myers CELECOXIB 200MG 2021-09 2- 00:00: 00 Yes Dwayne Myers TAKE 1 TABLET BY MOUTH TWICE A DAY 2021-09 2- 00:00: 00 No 5 TAKE 1 TABLET BY MOUTH TWICE A DAY 2021-09 2- 00:00: 00 No 5 CELECOXIB 200MG 2021-09 2- 00:00: 00 No TAKE 1 TABLET BY MOUTH TWICE A DAY 2021-09 2- 00:00: 00 No 5 CELECOXIB 200MG 2021-09 2- 00:00: 00 No TIZANIDINE 2MG 2021-09 2 00:00: 00 Yes 2000 Dwayne Myers GABAPENTIN 300MG 2021-09 2 00:00: 00 Yes [id number] Dwayne Myers VITAMIN D3 50,000IU 2021-09 2 [...] Yes 25mg Take 1 tablet by mouth. [facility] traMADoL (ULTRAM) tablet 100 mg 2021-09 04:05: 40 07-28 05:41 :29 No 100mg 100 mg, Oral, Q8HPRN, Starting on Sun07/26/22 at 2205, Until Nicole 07/27/22 at 2341, Routine, Pain (scale 4-6) [facility] TAKE 1 TABLET BY MOUTH IN THE MORNING AND 1 TABLET AT NOON AND 1 TABLET IN THE EVENING. 2021-09 00:00: 00 Yes Dwayne Myers metoprolol tartrate 25 mg tablet 2021-09 00:00: 00 Yes [id number] 25mg Take 1 tablet by mouth in the morning and 1 tablet at noon and 1 tablet in the evening. [facility] traMADoL 100 mg Tab 2021-09 00:00: 00 08-04 05:59 :00 No [id number] 100mg Take 100 mg by mouth every 8 (eight) hours as needed for Pain (scale 4-6) for up to 7 days. Indication s: acute pain [facility] metoprolol tartrate (LOPRESSOR) tablet 25 mg 2021-09 20:00: 00 Yes 25mg 25 mg, Oral, TID, First dose (after last modificati on) on Sun07/26/22 at 1400, Until Discontinu ed, Routine [facility] furosemide (LASIX) injection 40 mg 2021-09 18:00: 00 07-26 18:10 :00 No 40mg 40 mg, Slow IV Push, ONCE, 1 dose, On Sun07/26/22 at 1200, Routine [facility] metoprolol tartrate (LOPRESSOR) tablet 25 mg 2021-09 15:30: 00 07-26 17:08 :02 No 25mg 25 mg, Oral, BID, First dose on Sun07/26/22 at 0930, Until Discontinu ed, Routine [facility] enoxaparin (LOVENOX) injection 40 mg 2021-09 15:00: 00 Yes 40mg 40 mg, Subcutaneo us, DAILY, First dose on Sun07/26/22 at 0900, Until Discontinu ed, Routine [facility] amLODIPine (NORVASC) tablet 10 mg 2021-09 15:00: 00 07-26 15:21 :17 No 10mg 10 mg, Oral, DAILY, First dose on Sun07/26/22 at 0900, Until Discontinu ed, Routine [facility] methocarbam oL (ROBAXIN) tablet 500 mg 2021-09 14:00: 00 Yes 500mg 500 mg, Oral, BID, First dose on Sun07/26/22 at 0800, Until Discontinu ed, [facility] (ZOFRAN (PF[facility] 4 mg 2021-09 05:42: 35 Yes 4mg 4 mg, Slow IV Push, Q6HPRN, Starting on Sun07/25/22 at 2342, Until Discontinu ed, Routine, Nausea and Vomiting (N/V) [facility] FENTanyl PF (SUBLIMAZE (PF)) injection 50 mcg 2021-09 05:42: 32 07-27 05:41 :32 No 50ug 50 mcg, Slow IV Push, Q3HPRN, Starting on Sun07/25/22 at 2342, Until Sun07/26/22 at 2341, Routine, Pain (scale 7-10) [facility] tra[facility] (ULTRAM) tablet 50 mg 2021-09 05:42: 29 07-27 04:05 :58 No 50mg 50 mg, Oral, Q8HPRN, Starting on Sun07/25/22 at 2342, Until Sun07/26/22 at 2205, Routine, Pain (scale 4-6) [facility] ondansetron (ZOFRAN (PF)) injection 4 mg 2021-09 05:00: 00 07-26 04:23 :00 No 4mg 4 mg, Slow IV Push, ONCE, 1 dose, On Sun07/25/22 at 2300, SE [facility] morpHINE (4 mg/mL) injection 4 mg 2021-09 05:00: 00 07-26 04:23 :00 No 4mg 4 mg, Slow IV Push, ONCE, 1 dose, On Sun07/25/22 at 2300, SE [facility] iopamidol (ISOVUE 370-500 mL) injection 100 mL 2021-09 04:15: 00 07-26 03:20 :00 No [id number] 100mL 100 mL, Intravenou s, ONCE, 1 dose, On Sun07/25/22 at 2215, Routine [facility] morpHINE (2 mg/mL) injection 2 mg 2021-09 02:45: 00 07-26 02:36 :00 No 2mg 2 mg, Slow IV Push, ONCE, 1 dose, On Sun07/25/22 at 2045, STAT [facility] TAKE 1 TABLET BY MOUTH IN [...] 2021-09 00:00: 00 07-27 00:00 :00 No [id number] 25mg Take 1 tablet by mouth in the morning and 1 tablet in the evening. [facility] TAKE 1/2 TABLET BY MOUTH TWICE [...] E 40MG DR 2021-09 00:00: 00 Yes [id number] Dwayne Myers ALPRAZOLAM 1MG 2021-09 00:00: 00 Yes Dwayne Myers ALPRAZOLAM 1MG 2021-09 00:00: 00 No ALPRAZOLAM 1MG 2021-09 00:00: 00 No PREDNISONE 10MG 2021-09 00:00: 00 Yes [id number] Dwayne Myers CELECOXIB 200MG 2021-09 00:00: 00 Yes [id number] Dwayne Myers TIZANIDINE 2MG 2021-09 00:00: 00 Yes Dwayne Myers GABAPENTIN 300MG 2021-09 00:00: 00 Yes [id number] Dwayne Myers TIZANIDINE 2MG 2021-09 00:00: 00 No TIZANIDINE 2MG 2021-09 00:00: 00 No ZOLPIDEM 10MG 2021-09 00:00: 00 Yes Dwayne Myers VITAMIN D3 50,000IU 2021-09 00:00: 00 Yes [id number] Dwayne Myers ZOLPIDEM 10MG 2021-09 00:00: 00 No ZOLPIDEM 10MG 2021-09 00:00: 00 No NALOXONE HCL 4MG SPR 2021-09 00:00: 00 Yes Dwayne Myers APAP/CODEIN E #4 2021-09- 00:00: 00 Yes Dwayne Myers NALOXONE HCL 4MG SPR 2021-09 00:00: 00 No APAP/CODEIN E #4 2021-09 00:00: 00 No NALOXONE HCL 4MG SPR 2021-09 00:00: 00 No APAP/CODEIN E #4 2021-09 00:00: 00 No TAKE 1 TABLET BY MOUTH EVERY 8 HOURS 2021-09- 00:00: 00 Yes Dwayne Myers TAKE 1 TABLET BY MOUTH EVERY 8 HOURS NEEDED 2021-09 00:00: 00 Yes Dwayne Myers TAKE 1 CAPSULE BY MOUTH EVERY DAY 2021-09 00:00: 00 Yes Dwayne Myers OMEPRAZOLE 20MG 2021-09 00:00: 00 Yes Dwayne Myers TAKE 1 CAPSULE BY MOUTH EVERY 8 HOURS 2021-09 00:00: 00 Yes Dwayne Myers DICLOFEN SOD 100MG ER 2021-09 00:00: 00 Yes Dwayne Myers ATORVASTATI N 20MG 2021-09 0- 00:00: 00 Yes Dwayne Myers TAKE 1 TABLET BY MOUTH EVERY DAY WITH EVENING MEAL 2021-09 0 00:00: 00 Yes Dwayne Myers USE 1 AMPULE IN NEBULIZER 3 TIMES A DAY 2021-09 0- 00:00: 00 Yes wDayne Myers TAKE 1 TABLET BY MOUTH EVERY DAY 2021-09 0- 00:00: 00 Yes Dwayne Myers USE 1 AMPULE IN NEBULIZER 3 TIMES A DAY 2021-09 0- 00:00: 00 No USE 1 AMPULE IN NEBULIZER 3 TIMES A DAY 2021-09 0- 00:00: 00 No celecoxib (CELEBREX) 100 mg capsule 2021-09 0-24 06:18: 50 06-26 00:00 :00 No 100mg Take 100 mg by mouth 2 (two) times daily with meals. [facility] amLODIPine 10 mg tablet 2021-09-24 06:18: 50 06-26 00:00 :00 No 10mg Take 10 mg by mouth daily. [facility] FLUoxetine 10 mg capsule 2021-09 06:18: 50 06-26 00:00 :00 No 10mg Take 10 mg by mouth daily. [facility] traMADoL 100 mg capsule 2021-09 06:18: 50 06-26 00:00 :00 No 100mg Take 100 mg by mouth every 6 (six) hours as needed. [facility] famotidine (PEPCID AC) tablet 20 mg 2021-09 05:30: 00 Yes 20mg 20 mg, Oral, BID, First dose on Sun06/26/22 at 0030, Until Discontinu ed, [facility] ce[facility] (MAXIPIME) [...] of therapy: 72 hours [facility] furosemide (LASIX) injection 40 mg 2021-09 14:00: 00 Yes 40mg 40 mg, Slow IV Push, DAILY, First dose on Sun06/25/22 at 0900, Until Discontinu ed, Routine [facility] enoxaparin (LOVENOX) injection 40 mg 2021-09 14:00: 00 Yes 40mg 40 mg, Subcutaneo us, DAILY, First dose on Sun06/25/22 at 0900, Until Discontinu ed, Routine [facility] amLODIPine (NORVASC) tablet 10 mg 2021-09 14:00: 00 Yes 10mg 10 mg, Oral, DAILY, First dose on Sun06/25/22 at 0900, Until Discontinu ed, Routine Univers [facility] azithromyci n (ZITHROMAX) tablet 500 mg 2021-09 14:00: 00 06-28 13:59 :00 No 500mg 500 mg, Oral, DAILY, 3 doses, First dose on Sun06/25/22 at 0900, Last dose on Sun06/27/22 at 0900, SE
Re ason for Anti-Infec tive: Empiric Therapy for Suspected Infection< br>Empiric Therapy Site: Respirator y
Durat ion of therapy: 72 hours [facility] ceFEPIme (MAXIPIME) 1,000 mg in NaCl 0.9% (NS) 50 mL MINI-BAG 2021-09 13:30: 00 06-25 14:00 :00 No 1000mg 1,000 mg, IV Piggyback, ONCE, 1 dose, On Sun06/25/22 at 0830, Administer over 30 Minutes, 50 mL
Reas on for Anti-Infec tive: Empiric Therapy for Suspected Infection< br>Empiric Therapy Site: Respirator y
Durat ion of therapy: 72 hours [facility] losartan (COZAAR) tablet 50 mg 2021-09 13:00: 00 Yes 50mg 50 mg, Oral, BID, First dose on Sun06/25/22 at 0800, Until Discontinu ed, Routine [facility] methylPREDN ISolone sod succ (SOLU-MEDRO L (PF)) injection 40 mg 2021-09 13:00: 00 Yes 40mg 40 mg, Slow IV Push, Q12H, First dose on Sun06/25/22 at 0800, Until Discontinu ed, Routine [facility] morpHINE (2 mg/mL) injection 2 mg 2021-09 11:02: 17 Yes 2mg 2 mg, Slow IV Push, Q6HPRN, Starting on Sun06/25/22 at 0602, Until Discontinu ed, Routine, Pain (scale 7-10) [facility] iopamidol (ISOVUE 370-500 mL) injection 100 mL 2021-09 07:59: 00 06-25 07:59 :00 No [id number] 100mL 100 mL, Intravenou s, ONCE, 1 dose, On 06/25/22 at 0315, Routine [facility] traMADoL (ULTRAM) tablet 50 mg 2021-09 07:36: 43 Yes 50mg 50 mg, Oral, Q6HPRN, Starting on 06/25/22 at 0236, Until Discontinu ed, Routine, Pain (scale 4-6) [facility] morpHINE (4 mg/mL) injection 4 mg 2021-09 05:15: 00 06-25 04:46 :00 No 4mg 4 mg, Slow IV Push, ONCE, 1 dose, On 06/25/22 at 0015, [facility] furosemide (LASIX) injection 40 mg 2021-09 04:30: 00 06-25 04:46 :00 No 40mg 40 mg, IV Push, ONCE, 1 dose, On 06/24/22 at 2330, [facility] ondansetron (ZOFRAN (PF)) injection 4 mg 2021-09 04:29: 13 Yes 4mg 4 mg, Slow IV Push, Q6HPRN, Starting on 06/24/22 at 2329, Until Discontinu ed, Routine, Nausea and Vomiting (N/V) [facility] acetaminoph en (TYLENOL) tablet 650 mg 2021-09 04:29: 07 Yes 650mg 650 mg, Oral, Q6HPRN, Starting on 06/24/22 at 2329, Until Discontinu ed, Routine, Pain (scale 1-3) [facility] PREDNISONE 20MG 2021-09 00:00: 00 Yes Dwayne Myers ALBUTEROL PA HFA 200 INH 2021-09 00:00: 00 Yes Dwayne Myers ALBUTER 3ML 0.083% 2021-09 00:00: 00 Yes 83 Dwayne Myers AZITHROMYCI N 500MG 2021-09 00:00: 00 Yes [id number] Dwayne Myers TAKE 2 TABLETS BY MOUTH FOR 5 DAYS 2021-09 0-21 00:00: 00 Yes Dwayne Myers TAKE 1 CAPSULE BY MOUTH EVERY 8 HOURS NEEDED FOR COUGH 2021-09 0-21 00:00: 00 Yes Dwayne Myers BREO ELLIPTA 200-25 INH 2021-09 0-20 00:00: 00 Yes Dwayne Myers FUROSEMIDE 20MG 2021-09 0-17 00:00: 00 Yes Dwayne Myers SPIRONOLACT 25MG 2021-09 0-17 00:00: 00 Yes Dwayne Myers TAKE 1/2 TABLET BY MOUTH TWICE DAILY NEEDED 2021-09 0-17 00:00: 00 Yes Dwayne Myers FLUOXETIN(P ) 40MG 2021-09 0-15 00:00: 00 Yes [id number] Dwayne Myers GABAPENTIN 300MG 2021-09 0-13 00:00: 00 Yes [id number] Dwayne Myers VITAMIN D3 50,000IU 2021-09 0-13 00:00: 00 Yes [id number] 0 Dwayne Myers PREDNISONE 10MG 2021-09 0-11 00:00: 00 Yes [id number] Dwayne Myers CELECOXIB 200MG 2021-09 0-11 00:00: 00 Yes Dwayne Myers ondansetron (ZOFRAN-ODT ) disintegrat ing tablet 4 mg 06-01 02:45: 00 06-01 01:44 :00 No 4mg 4 mg, Oral, ONCE, 1 dose, On Sun05/31/22 at 2145, [facility] HYDROcodone -acetaminop hen (NORCO) 10-325 mg tablet 1 tablet 06-01 02:45: 00 06-01 01:45 :00 No 1{tbl} 1 tablet, Oral, ONCE, 1 dose, On Sun05/31/22 at 2145, [facility] HYDROCO/APA P 5-325MG 05-31 00:00: 00 Yes Dwayne Myers HYDROcodone -acetaminop hen 5-325 mg tablet 05-31 00:00: 00 06-08 04:59 :00 No [id number] 1{tbl} Take 1 tablet by mouth every 6 (six) hours as needed for Pain (scale 7-10) for up to 7 days. Indication s: acute pain [facility] DICLOFEN SOD 100MG ER 0 05-30 00:00: 00 Yes Dwayne Myers ORPHENADRIN E 100MG ER 2021-0 05-29 00:00: 00 Yes Dwayne Myers TAKE 1 TABLET BY MOUTH AT BEDTIME NEEDED FOR PAIN 0 05-29 00:00: 00 Yes Dwayne Myers TAKE 1 TABLET BY MOUTH EVERY 8 HOURS 2021-0 05-29 00:00: 00 Yes Dwayne Myers ZOLPIDEM 10MG 0 - 00:00: 00 Yes [id number] Dwayne Myers TAKE 1 TABLET BY MOUTH EVERYDAY AT BEDTIME 0 05-26 00:00: 00 Yes Dwayne Myers USE 1 PUFF EVERY DAY 30 0 05-26 00:00: 00 Yes Dwayne Myers FLUOXETIN(P ) 40MG 2021-0 18 00:00: 00 Yes Dwayne Myers TAKE 1 TABLET BY MOUTH EVERY 8 HOURS NEEDED 2021-0 16 00:00: 00 Yes Dwayne Myers TAKE 1 CAPSULE BY MOUTH EVERY DAY 2021-0 -16 00:00: 00 Yes Dwayne Myers TAKE 1 CAPSULE BY MOUTH EVERY DAY 2021-0 -16 00:00: 00 Yes Dwayne Myers ALPRAZOLAM 1MG 2021-0 -14 00:00: 00 Yes 1000 Dwayne Myers TAKE HALF OF A TABLET (0.5 MG) BY MOUTH TWICE A DAY NEEDED 2021-0 - 00:00: 00 Yes Dwayne Myers VITAMIN D3 50,000IU 0 -12 00:00: 00 Yes [id number] 0 Dwayne Myers OMEPRAZOLE 20MG 2021-0 9-09 00:00: 00 Yes Dwayne Myers FLUOXETIN(P ) 40MG 2021-0 9-06 00:00: 00 Yes [id number] Dwayne Myers FLUOXETINE HCL 20MG 2021-0 8-28 00:00: 00 Yes Dwayne Myers DICLOFENAC SODIUM ER 100MG ER 2021-0 8- 00:00: 00 Yes [id number] Dwayne Myers TAKE 1 CAPSULE BY MOUTH EVERY 8 HOURS 0 8-19 00:00: 00 Yes Dwayne Myers TAKE 1 CAPSULE BY MOUTH EVERY DAY 0 819 00:00: 00 Yes Dwayne Myers TAKE 1 CAPSULE BY MOUTH EVERY DAY 0 819 00:00: 00 Yes Dwayne Myers PREDNISONE 10MG 0 8-18 00:00: 00 Yes [id number] Dwayne Myers ALPRAZOLAM 1MG 0 18 00:00: 00 Yes 1000 Dwayne Myers &lt 0 816 00:00: 00 Yes Dwayne Myers Dose Unknown 0 8-16 00:00: 00 Yes Dwayne Myers DICLOFENAC SODIUM ER 100MG ER TAB 0 -16 00:00: 00 Yes Dwayne Myers &lt 2021-0 816 00:00: 00 Yes 500 Dwayne Myers TAKE 1 CAPSULE BY MOUTH EVERY DAY 0 -16 00:00: 00 Yes Dwayne Myers TAKE 1 TABLET BY MOUTH EVERY DAY FOR 30 DAYS 0 816 00:00: 00 Yes 20 Dwayne Myers USE 1 PUFF EVERY DAY 0 816 00:00: 00 Yes Dwayne Myers Dose Unknown 0 04-18 00:00: 00 Yes Dwayne Myers &lt 2021-0 816 00:00: 00 No TAKE 1 CAPSULE BY MOUTH EVERY DAY 2021-0 8-16 00:00: 00 No 20 &lt 2021-0 8-16 00:00: 00 No 100 &lt 2021-0 8-16 00:00: 00 No 500 TAKE 1 CAPSULE BY MOUTH EVERY DAY 0 8-16 00:00: 00 No 200 TAKE 1 TABLET BY MOUTH EVERY DAY FOR 30 DAYS 0 8-16 00:00: 00 No 20 USE 1 PUFF EVERY DAY 2021-0 8-16 00:00: 00 No INJECT 1 ML INTRAMUSCUL JUDIE ONCE EVERY 3 MONTHS. 0 8-16 00:00: 00 No 150 &lt 2021-0 8-16 00:00: 00 No Dose Unknown 0 8-16 00:00: 00 No DICLOFENAC SODIUM ER [...] Unknown 2021-0 8-16 00:00: 00 No &lt 2022-0 8-13 00:00: 00 Yes Dwayne Niurka Louis &lt 2022-0 8-13 00:00: 00 No &lt 2022-0 8-13 00:00: 00 No &lt 2022-0 8-13 00:00: 00 No &lt 2022-0 8-13 00:00: 00 No Dose Unknown 2021-0 8-12 00:00: 00 Yes Dwayne Niurka Louis FUROSEMIDE 20MG TAB 2021-0 8-12 00:00: 00 Yes Dwayne Myers TAKE 1 TABLET BY MOUTH TWICE A DAY 2021-0 8-12 00:00: 00 Yes Dwayne Bah Louis TAKE 1 TABLET BY MOUTH EVERY DAY FOR 7 DAYS 2021-0 8-12 00:00: 00 No 500 &lt 2-0 8-12 00:00: 00 No 20 Dose Unknown 2021-0 8-12 00:00: 00 No Dose Unknown 2-0 8-12 00:00: 00 No FUROSEMIDE 20MG TAB 2-0 8-12 00:00: 00 No TAKE 1 TABLET BY MOUTH TWICE A DAY 2-0 8-12 00:00: 00 No TAKE 1 TABLET BY MOUTH EVERY DAY FOR 7 DAYS 0 8-12 00:00: 00 No 500 &lt 0 8-12 00:00: 00 No 20 TAKE 1 TABLET BY MOUTH TWICE A DAY 0 8 00:00: 00 No 75 Dose Unknown 0 8 00:00: 00 No FUROSEMIDE 20MG TAB 0 8- 00:00: 00 No TAKE 1 TABLET BY MOUTH TWICE A DAY 0 8 00:00: 00 No TIZANIDINE HCL 2MG 0 8 00:00: 00 Yes 1999 Dwayne Myers TAKE 10 MG 1 TAB ORALLY DAILY AT BEDTIME 0 04-12 00:00: 00 Yes Dwayne Myers TAKE 2 CAPSULES BY MOUTH EVERY DAY 0 04-12 00:00: 00 Yes Dwayne Myers TAKE 1/2 TABLETS (2.5 MG) BY MOUTH DAILY 0 04-12 00:00: 00 Yes Dwayne Myers TAKE HALF OF A TABLET (0.5 MG) BY MOUTH TWICE A DAY NEEDED 0 04-12 00:00: 00 Yes Dwayne Myers ALPRAZOLAM 1MG TAB 0 04-11 00:00: 00 Yes Dwayne Myers Dose Unknown 0 04-11 00:00: 00 Yes Dwayne Myers TAKE 1 TABLET BY MOUTH EVERY 12 HOURS NEEDED 0 04-11 00:00: 00 Yes Dwayne Myers ALPRAZOLAM 1MG TAB 0 8 00:00: 00 No &lt 0 8 00:00: 00 No Dose Unknown 0 8 00:00: 00 No ALPRAZOLAM 1MG TAB 0 8 00:00: 00 No Dose Unknown 0 8 00:00: 00 No TAKE 1 TABLET BY MOUTH EVERY 12 HOURS NEEDED 0 8- 00:00: 00 No &lt 2021-0 8-09 00:00: 00 No 1 &lt 2021-0 8 00:00: 00 No Dose Unknown 0 8- 00:00: 00 No ALPRAZOLAM 1MG TAB 0 8- 00:00: 00 No Dose Unknown 2022-0 8-09 00:00: 00 No TAKE 1 TABLET BY MOUTH EVERY 12 HOURS NEEDED 2021-0 8-09 00:00: 00 No GABAPENTIN 300MG 2021-0 8-06 00:00: 00 Yes [id number] Dwayne Myers ONDANSETRON HYDROCHLORI DE 4MG 2021-0 8-06 00:00: 00 Yes 4000 Dwayne Myers ACETAMINOPH EN/CODEINE DEMOND #4 0 8-05 00:00: 00 Yes Dwayne Myers AMLODIPINE BESYLATE 10MG 0 8- 00:00: 00 Yes [id number] Dwayne Myers TAKE 1 TABLET BY MOUTH EVERY DAY FOR 90 DAYS 0 7- 00:00: 00 Yes Dwayne Myers SPIRONOLACT ONE 50MG 0 7- 00:00: 00 Yes [id number] Dwayne Myers ZOLPIDEM TARTRATE 10MG 2021-0 7-25 00:00: 00 Yes [id number] Dwayne Myers DICLOFENAC SODIUM ER 100MG ER 0 7-25 00:00: 00 Yes [id number] Dwayne Myers BREO ELLIPTA 200-25 INH 0 7-25 00:00: 00 Yes Dwayne Myers TAKE 1 TABLET BY MOUTH EVERY DAY FOR 90 DAYS 0 - 00:00: 00 Yes Dwayne Myers ALPRAZOLAM 1MG 2021-0 7- 00:00: 00 Yes 1000 Dwayne Myers FUROSEMIDE 20MG 2021-0 7-20 00:00: 00 Yes [id number] Dwayne Myers TAKE 1 CAPSULE BY MOUTH EVERY DAY 2021-0 7-18 00:00: 00 Yes Dwayne Myers TAKE 1 CAPSULE BY MOUTH EVERY DAY 2021-0 7-18 00:00: 00 Yes Dwayne Myers &lt 2-0 7-15 00:00: 00 Yes 100 Dwayne Myers &lt 2-0 7-15 00:00: 00 No 100 &lt 2022-0 7-15 00:00: 00 No 100 &lt 2022-0 7-15 00:00: 00 No 100 &lt 2022-0 7-15 00:00: 00 No 100 Cholecalcif shanti, Vitamin D3, 1,250 mcg (50,000 unit) capsule 2021-0 7-14 00:00: 00 01-15 00:00 :00 No [facility] CELECOXIB 200MG -13 00:00: 00 Yes Dwayne Myers TAKE 1 [...] 02/26/22 at 0900, Until Discontinu ed, Routine [facility] amLODIPine (NORVASC) tablet 10 mg 02-26 14:00: 00 Yes 10mg 10 mg, Oral, DAILY, First dose on Sun02/26/22 at 0900, Until Discontinu ed, Routine [facility] celecoxib (CELEBREX) 100 mg capsule 02-26 12:37: 35 Yes 100mg Take 100 mg by mouth 2 (two) times daily with meals. [facility] amLODIPine 10 mg tablet 02-26 12:37: 35 Yes 10mg Take 10 mg by mouth daily. [facility] FLUoxetine 10 mg capsule 02-26 12:37: 35 Yes 10mg Take 10 mg by mouth daily. [facility] traMADoL 100 mg capsule 02-26 12:37: 35 Yes 100mg Take 100 mg by mouth every 6 (six) hours as needed. [facility] ondansetron (ZOFRAN (PF)) injection 4 mg 02-26 04:30: 54 Yes 4mg 4 mg, Slow IV Push, Q6HPRN, Starting on 02/25/22 at 2330, Until Discontinu ed, Routine, Nausea and Vomiting (N/V) [facility] acetaminoph en (TYLENOL) tablet 650 mg 02-26 04:30: 45 Yes 650mg 650 mg, Oral, Q6HPRN, Starting on 02/25/22 at 2330, Until Discontinu ed, Routine, Pain (scale 1-3) [facility] ondansetron (ZOFRAN (PF)) injection 4 mg 02-23 05:45: 00 02-23 04:58 :00 No 4mg 4 mg, Slow IV Push, ONCE, 1 dose, On Sun02/23/22 at 0045, [facility] morpHINE (4 mg/mL) injection 4 mg 02-23 05:45: 00 02-23 04:58 :00 No 4mg 4 mg, Slow IV Push, ONCE, 1 dose, On Sun02/23/22 at 0045, [facility] acetaminoph en (TYLENOL) tablet 1,000 mg 02-23 04:00: 00 02-23 03:13 :00 No 1000mg 1,000 mg, Oral, ONCE, 1 dose, On Sun02/22/22 at 2300, [facility] methocarbam oL (ROBAXIN) tablet 1,000 mg 02-23 04:00: 00 02-23 03:14 :00 No 1000mg 1,000 mg, Oral, ONCE, 1 dose, On Sun02/22/22 at 2300, [facility] TAKE 1 CAPSULE BY MOUTH EVERY DAY 02-20 00:00: 00 Yes Dwayne Myers TAKE 1 TABLET BY MOUTH EVERY 8 HOURS 2022-0 6-20 00:00: 00 Yes Dwayne Myers FLUOXETINE HYDROCHLORI DE 40MG 2021-0 20 00:00: 00 Yes [id number] Dwayne Myers VITAMIN D3 50,000IU 2021-0 20 00:00: 00 Yes [id number] 0 Dwayne Myers TAKE 1 CAPSULE BY MOUTH EVERY DAY 2021-0 6-20 00:00: 00 No TAKE 1 CAPSULE BY MOUTH EVERY DAY 2021-0 6-20 00:00: 00 No TAKE 1 CAPSULE BY MOUTH EVERY DAY 2021-0 20 00:00: 00 No TAKE 1 CAPSULE BY MOUTH EVERY DAY 2021-0 20 00:00: 00 No &lt 2022-0 6-16 00:00: 00 Yes Dwayne Myers TIZANIDINE HCL 2MG 2021-0 -16 00:00: 00 Yes 1999 Dwayne Myers &lt 2-0 6- 00:00: 00 No &lt 2022-0 616 00:00: 00 No &lt 2-0 616 00:00: 00 No &lt 2022-0 616 00:00: 00 No CELECOXIB 200MG 2021-0 614 00:00: 00 Yes Dwayne Myers Dose Unknown 2021-0 6 00:00: 00 Yes Dwayne Myers &lt 2-0 6- 00:00: 00 Yes Dwayne Myers TAKE 1 TABLET BY MOUTH TWICE A DAY FOR 30 DAYS 2021-0 6 00:00: 00 Yes Dwayne Myers &lt 2-0 6 00:00: 00 Yes Dwayne Myers &lt 2-0 6 00:00: 00 Yes Dwayne Myers Dose Unknown 2021-0 6- 00:00: 00 No &lt 2022-0 6 00:00: 00 No TAKE 1 TABLET BY MOUTH TWICE A DAY FOR 30 DAYS 2021-0 6- 00:00: 00 No &lt 2022-0 6- 00:00: 00 No &lt 2022-0 6 00:00: 00 No Dose Unknown 2-0 6- 00:00: 00 No &lt 2022-0 6- [...] 6 00:00: 00 No Dose Unknown 2021-0 02-09 00:00: 00 No &lt 2022-0 02-09 00:00: 00 No TAKE 1 TABLET BY MOUTH TWICE A DAY FOR 30 DAYS 2-0 - 00:00: 00 No &lt 2022-0 6 00:00: 00 No &lt 2022-0 02-09 00:00: 00 No TRAZODONE HYDROCHLORI DE 50MG 2021-0 02-08 00:00: 00 Yes [id number] Dwayne Myers TAKE 1 BY MOUTH ORALLY DAILY AT BEDTIME 2021-0 02-08 00:00: 00 Yes Dwayne Myers TAKE 2 CAPSULES BY MOUTH EVERY DAY 2021-0 02-08 00:00: 00 Yes Dwayne Myers &lt 2-0 6- 00:00: 00 Yes Dwayne Myers &lt 2022-0 6- 00:00: 00 No &lt 2022-0 6- 00:00: 00 No &lt 2022-0 6- 00:00: 00 No &lt 2022-0 6 00:00: 00 No Dose Unknown 2021-0 02-01 00:00: 00 Yes Dwayne Myers TAKE 1 TABLET BY MOUTH EVERY 12 HOURS NEEDED 2021-0 6 00:00: 00 Yes Dwayne Myers METFORMIN HYDROCHLORI DE 500MG 2021-0 02-01 00:00: 00 Yes [id number] Dwayne Myers BREO ELLIPTA 200-25 INH 2021-0 6 00:00: 00 Yes Dwayne Myers Dose Unknown 2021-0 6 00:00: 00 No TAKE 1 TABLET BY MOUTH EVERY 12 HOURS NEEDED 2021-0 6 00:00: 00 No Dose Unknown 0 02-01 00:00: 00 No TAKE 1 TABLET BY MOUTH EVERY 12 HOURS NEEDED 0 02-01 00:00: 00 No Dose Unknown 0 02-01 00:00: 00 No TAKE 1 TABLET BY MOUTH EVERY 12 HOURS NEEDED 0 02-01 00:00: 00 No Dose Unknown 0 02-01 00:00: 00 No TAKE 1 TABLET BY MOUTH EVERY 12 HOURS NEEDED 0 02-01 00:00: 00 No metformin 500 mg tablet 01-31 00:00: 00 Yes 1mg Dwayne Myers Dose Unknown 01-31 00:00: 00 Yes Dwayne Myers &lt 01-31 00:00: 00 Yes Dwayne Myers TAKE 1 TABLET BY MOUTH TWICE A DAY 01-31 00:00: 00 Yes Dwayne Myers TAKE 2 PUFFS BY MOUTH EVERY 4 TO 6 HOURS 01-31 00:00: 00 Yes Dwayne Myers TAKE 1 CAPSULE BY MOUTH EVERY DAY 01-31 00:00: 00 Yes Dwayne Myers TAKE 6 TABLETS ON DAY 1 DIRECTED ON PACKAGE AND DECREASE BY 1 TAB EACH DAY FOR A TOTAL OF 6 DAYS 01-31 00:00: 00 Yes Dwayne Myers metformin 500 mg tablet 01-31 00:00: 00 No 1mg Dose Unknown 01-31 00:00: 00 No metformin 500 mg tablet 01-31 00:00: 00 No 1mg &lt 0 01-31 00:00: 00 No Dose Unknown 01-31 00:00: 00 No &lt 0 01-31 00:00: 00 No TAKE 1 TABLET BY MOUTH TWICE A DAY 01-31 00:00: 00 No TAKE 2 PUFFS BY MOUTH EVERY 4 TO 6 HOURS 01-31 00:00: 00 No TAKE 1 CAPSULE [...] 6 HOURS 01-31 00:00: 00 No TAKE 1 CAPSULE BY MOUTH EVERY DAY 01-31 00:00: 00 No TAKE 6 TABLETS ON DAY 1 DIRECTED ON PACKAGE AND DECREASE BY 1 TAB EACH DAY FOR A TOTAL OF 6 DAYS 01-31 00:00: 00 No metformin 500 mg tablet 01-31 00:00: 00 No 1mg Dose Unknown 01-31 00:00: 00 No &lt 01-31 00:00: 00 No TAKE 1 TABLET BY MOUTH TWICE A DAY 01-31 00:00: 00 No TAKE 2 PUFFS BY MOUTH EVERY 4 TO 6 HOURS 01-31 00:00: 00 No TAKE 1 CAPSULE BY MOUTH EVERY DAY 01-31 00:00: 00 No TAKE 6 TABLETS ON DAY 1 DIRECTED ON PACKAGE AND DECREASE BY 1 TAB EACH DAY FOR A TOTAL OF 6 DAYS 01-31 00:00: 00 No metformin 500 mg tablet 01-31 00:00: 00 No 1mg Dose Unknown 01-31 00:00: 00 No &lt 01-31 00:00: 00 No TAKE 1 TABLET BY MOUTH TWICE A DAY 01-31 00:00: 00 No TAKE 2 PUFFS BY MOUTH EVERY 4 TO 6 HOURS 01-31 00:00: 00 No TAKE 1 CAPSULE [...] 1 dose, On 01/29/22 at 0915, [facility]OVENTIL[facility] 2.5 mg /3 mL (0.083 %) nebulizer solution 5 mg 01-29 14:15: 00 01-29 13:42 :00 No 5mg 5 mg, Inhalation , ONCE, 1 dose, On 01/29/22 at 0915, [facility] Dose Unknown 0 01-28 00:00: 00 Yes [...] Dose Unknown 0 01-28 00:00: 00 No TAKE 1 TABLET BY MOUTH AT BEDTIME 0 01-25 00:00: 00 Yes Dwayne Myers TAKE 1 CAPSULE BY MOUTH EVERY DAY 0 01-23 00:00: 00 Yes Dwayne Myers TAKE 1 CAPSULE BY MOUTH EVERY 8 HOURS 0 01-23 00:00: 00 Yes Dwayne Myers TAKE 1 CAPSULE BY MOUTH EVERY DAY 0 01-23 00:00: 00 Yes Dwayne Myers OMEPRAZOLE 20MG 0 01-20 00:00: 00 Yes Dwayne Myers VITAMIN D3 50,000IU 0 18 00:00: 00 Yes [id number] 0 Dwayne Myers TAKE 1 TABLET BY MOUTH EVERY DAY FOR 7 DAYS 0 - 00:00: 00 Yes Dwayne Myers FENTanyl PF (SUBLIMAZE (PF)) injection 50 mcg 0 01-03 04:45: 00 01-03 04:36 :00 No 50ug 50 mcg, Intramuscu lar, ONCE, 1 dose, On 01/02/22 at 2345, Routine [facility] CELECOXIB 200MG 12-26 00:00: 00 Yes Dwayne [...] mouth 2 (two) times daily with meals. [facility] amLODIPine 10 mg tablet 12-07 12:53: 05 Yes 10mg Take 10 mg by mouth daily. [facility] FLUoxetine 10 mg capsule 12-07 12:53: 05 Yes 10mg Take 10 mg by mouth daily. [facility] traMADoL 100 mg capsule 12-07 12:53: 05 Yes 100mg Take 100 mg by mouth every 6 (six) hours as needed. [facility] predniSONE 10 mg tablet 12-07 10:31: 12-07 00:00 :00 No 10mg Take 10 mg by mouth daily. [facility] hydrALAZINE 100 mg tablet 12-07 10:31: 12-07 00:00 :00 No 100mg Take 100 mg by mouth 2 (two) times daily. [facility] cefTRIAXone (ROCEPHIN) injection 2,000 mg 12-07 05:00: 00 12-12 04:59 :00 No 2000mg 2,000 mg, Intravenou s, Q24H ABX, 5 doses, First dose on Sun12/07/21 at 0000, Last dose on Sun12/11/21 at 0000
Re ason for Anti-Infec tive: Documented Infection< br>Documen britney Infection Site: [facility]pir[facility]
Durat ion of Therapy: 7 days [facility] PLEASE SEE ATTACHED FOR DETAILED DIRECTIONS 12-07 00:00: 00 Yes Dwayne Myers AZITHROMYCI N 500MG 12-07 00:00: 00 Yes [id number] Dwayne Myers predniSONE 10 mg tablet 12-07 00:00: 00 12-23 04:59 :00 No [id number] Take 2 tablets by mouth daily for 5 days, THEN 1 tablet daily for 5 days, THEN 0.5 tablets daily for 5 days. [facility] azithromyci n 500 mg tablet 12-07 00:00: 00 12-10 04:59 :00 No [id number] 500mg Take 1 tablet by mouth daily for 2 days. [facility] traMADoL (ULTRAM) tablet 50 mg 12-06 16:44: 28 Yes 50mg 50 mg, Oral, Q6HPRN, Starting on Sun12/06/21 at 1144, Until Discontinu ed, Routine, Pain (scale 4-6) [facility] ALPRAZolam (XANAX) tablet 0.5 mg 12-06 16:43: 05 Yes .5mg 0.5 mg, Oral, BIDPRN, Starting on Sun12/06/21 at 1143, Until Discontinu ed, Routine, anxiety [facility] HYDROcodone -acetaminop hen (NORCO 5) 5-325 mg tablet 1 tablet 12-06 16:42: 38 Yes 1{tbl} 1 tablet, Oral, Q6HPRN, Starting on Sun12/06/21 at 1142, Until Discontinu ed, Routine, Pain (scale 7-10) [facility] azithromyci n (ZITHROMAX) 500 mg in [...] of therapy: 72 hours [facility] KCL (KLOR-CON M20) tablet 40 mEq 12-06 14:00: 00 Yes 40meq 40 mEq, Oral, DAILY, First dose on Sun12/06/21 at 0900, Until Discontinu ed, Routine [facility] enoxaparin (LOVENOX) injection 40 mg 12-06 14:00: 00 Yes 40mg 40 mg, Subcutaneo us, Q24H, First dose on Sun12/06/21 at 0900, Until Discontinu ed, Routine [facility] predniSONE (DELTASONE) tablet 20 mg 12-06 14:00: 00 Yes 20mg 20 mg, Oral, DAILY, First dose on Sun12/06/21 at 0900, Until Discontinu ed, Routine [facility] FLUoxetine (PROZAC) capsule 20 mg 12-06 14:00: 00 Yes 20mg 20 mg, Oral, DAILY, First dose on Sun12/06/21 at 0900, Until Discontinu ed, Routine [facility] amLODIPine (NORVASC) tablet 5 mg 12-06 14:00: 00 Yes 5mg 5 mg, Oral, DAILY, First dose on Sun12/06/21 at 0900, Until Discontinu ed, Routine [facility] magnesium oxide (MAG-OX 400) tablet 400 mg 12-06 13:00: 00 Yes 400mg 400 mg, Oral, BID, First dose on Sun12/06/21 at 0800, Until Discontinu ed, Routine [facility] ipratropium -albuteroL (DUONEB) 0.5 mg-3 mg(2.5 mg base)/3 mL nebulizer solution 3 mL 12-06 13:00: 00 Yes 3mL 3 mL, Inhalation , QID, First dose on Sun12/06/21 at 0800, Until Discontinu ed, Routine [facility] lactobacill us acidophilus tablet 0.5 mg 12-06 13:00: 00 Yes .5mg 0.5 mg, Oral, BID, First dose on Sun12/06/21 at 0800, Until Discontinu ed, Routine [facility] levoFLOXaci n in D5W (LEVAQUIN) 750 [...]
Re stricted use approved by: ADC PROVIDER [facility] traMADoL (ULTRAM) tablet 50 mg 12-06 08:14: 42 12-06 16:44 :40 No 50mg 50 mg, Oral, Q6HPRN, Starting on Sun12/06/21 at 0314, Until Sun12/06/21 at 1144, Routine, Pain (scale 7-10) [facility] HYDROcodone -acetaminop hen (NORCO) 10-325 mg tablet 1 tablet 12-06 06:00: 00 12-06 04:59 :00 No 1{tbl} 1 tablet, Oral, ONCE, 1 dose, On Sun12/06/21 at 0100, Routine [facility] fluticasone propion-lavon meteroL (ADVAIR) 250-50 mcg/dose inhalation disk 1 Puff 12-05 13:00: 00 Yes 1{puff} 1 Puff, Inhalation , Q12H, First dose on Sun12/05/21 at 0800, Until Discontinu ed, Routine [facility] lurasidone HCl (LATUDA ORAL) 12-05 05:43: 55 12-05 00:00 :00 No Take by mouth. [facility] acetylcyste ine (MUCOMYST) 200 mg/mL (20 %) solution 800 mg 12-05 05:00: 00 12-08 04:59 :00 No 4mL 800 mg (4 mL), Inhalation , Q6H, 12 doses, First dose on Sun12/05/21 at 0000, Last dose on Sun12/07/21 at 1800, Routine [facility] cefTRIAXone (ROCEPHIN) 1,000 mg in NaCl 0.9% (NS) 50 mL MINI-BAG 12-05 03:00: 00 Yes 1000mg 1,000 mg, IV Piggyback, Q24H ABX, First dose on Sun12/04/21 at 2200, Until Discontinu ed, Administer over 30 Minutes, 50 mL
Reas on for Anti-Infec tive: Empiric Therapy for Suspected Infection& lt;br>Empi leandro Therapy Site: [facility]
Durat ion of therapy: 72 hours [facility] ipratropium -albuteroL (DUONEB) 0.5 mg-3 mg(2.5 mg base)/3 mL nebulizer solution 3 mL 12-05 02:00: 00 Yes 3mL 3 mL, Inhalation , Q6HPRN, Starting on Sun12/04/21 at 2100, Until Discontinu ed, Routine, Wheezing [facility] methylpredn isolone sod succ (SOLU-MEDRO L) injection 60 mg 12-05 02:00: 00 Yes 60mg 60 mg, Slow IV Push, Q12H, First dose on Sun12/04/21 at 2100, Until Discontinu ed, Routine [facility] HYDROcodone -acetaminop hen (NORCO) 10-325 mg tablet 1 tablet 12-05 01:55: 51 Yes 1{tbl} 1 tablet, Oral, Q6HPRN, Starting on Sun12/04/21 at 2055, Until Discontinu ed, Routine, Pain (scale 4-6) [facility] TAKE 1 TABLET BY MOUTH EVERY 8 HOURS 12-05 00:00: 00 Yes Dwayne Myers TAKE 1 CAPSULE BY MOUTH EVERY DAY 12-05 00:00: 00 Yes Dwayne Myers iopamidol (ISOVUE 370-500 mL) injection 100 mL 12-04 20:43: 00 12-04 20:43 :00 No [id number] 100mL 100 mL, Intravenou s, ONCE, 1 dose, On 12/04/21 at 1600, Routine [facility] enoxaparin (LOVENOX) injection 40 mg 12-04 14:00: 00 Yes 40mg 40 mg, Subcutaneo us, DAILY, First dose on 12/04/21 at 0900, Until Discontinu ed, Routine [facility] amLODIPine (NORVASC) tablet 5 mg 12-04 14:00: 00 Yes 5mg 5 mg, Oral, DAILY, First dose on 12/04/21 at 0900, Until Discontinu ed, Routine [facility] predniSONE (DELTASONE) tablet 20 mg 12-04 14:00: 00 12-05 01:54 :23 No 20mg 20 mg, Oral, DAILY, First dose on 12/04/21 at 0900, Until Discontinu ed, Routine [facility] lurasidone (LATUDA) tablet 20 mg 12-04 12:30: 00 Yes 20mg 20 mg, Oral, QAM-0730, First dose on 12/04/21 at 0730, Until Discontinu ed [facility] doxycycline hyclate (Vibramycin ) capsule 100 mg 12-04 11:00: 00 Yes 100mg 100 mg, Oral, Q12HA2, First dose on 12/04/21 at 0600, Until Discontinu ed, SE
Re ason for Anti-Infec tive: Empiric Therapy for Suspected Infection< br>Empiric Therapy Site: Respirator y
Durat ion of therapy: 7 days [facility] NaCl 0.9% (NS) IV infusion 500 mL 12-04 11:00: 00 12-04 15:59 :00 No 500mL at 100 mL/hr, IV Infusion, CONTINUOUS , Starting on 12/04/21 at 0600, Until 12/04/21 at 1059, [facility]EN[facility] 5 mg 12-04 06:14: 57 Yes 5mg 5 mg, Oral, QHSPRN, Starting on 12/04/21 at 0114, Until Discontinu ed, Routine, Insomnia [facility] docusate (COLACE) capsule 100 mg 12-04 01:00: 00 Yes 100mg 100 mg, Oral, BID, First dose on 12/03/21 at 1999, Until Discontinu ed, [facility] busP[facility]one (BUSPAR) tablet 5 mg 12-04 01:00: 00 Yes 5mg 5 mg, Oral, BID, First dose on 12/03/21 at 1999, Until Discontinu ed, Routine [facility] ipratropium -albuteroL (DUONEB) 0.5 mg-3 mg(2.5 mg base)/3 mL nebulizer solution 3 mL 12-04 01:00: 00 12-05 01:56 :47 No 3mL 3 mL, Inhalation , QID, First dose on 12/03/21 at 1999, Until Discontinu ed, [facility] ond[facility] (ZOFRAN (PF)) injection 4 mg 12-03 22:05: 11 Yes 4mg 4 mg, Slow IV Push, Q6HPRN, Starting on 12/03/21 at 1705, Until Discontinu ed, Routine, Nausea and Vomiting (N/V) [facility] HYDROcodone -acetaminop hen (NORCO 5) 5-325 mg tablet 1 tablet 12-03 22:05: 07 12-05 01:56 :02 No 1{tbl} 1 tablet, Oral, Q6HPRN, Starting on 12/03/21 at 1705, Until 12/04/21 at 205, Routine, Pain (scale 4-6) [facility] acet[facility]oph [facility] (TYLENOL) tablet 650 mg 12-03 22:05: 04 Yes 650mg 650 mg, Oral, Q6HPRN, Starting on 12/03/21 at 1705, Until Discontinu ed, Routine, Pain (scale 1-3) [facility] methylpredn isolone sod succ (SOLU-MEDRO L) injection 125 mg 12-03 21:00: 00 12-03 22:03 :00 No 125mg 125 mg, Slow IV Push, ONCE NOW, 1 dose, On 12/03/21 at 1600, [facility] albuterol (PROVENTIL) 2.5 mg /3 mL (0.083 %) nebulizer solution 2.5 mg 12-03 21:00: 00 12-03 22:06 :33 No 2.5mg 2.5 mg, Inhalation , QID, First dose on 12/03/21 at 1600, Until Discontinu ed, Routine [facility] ipratropium (ATROVENT) 0.02 % nebulizer solution 0.5 mg 12-03 21:00: 00 12-03 22:06 :24 No .5mg 0.5 mg, Inhalation , QID, First dose on 12/03/21 at 1600, Until Discontinu ed, Routine [facility] CELECOXIB 200MG 11-30 00:00: 00 Yes Dwayne Myers TAKE 1 TABLET BY MOUTH EVERY DAY FOR 30 DAYS 0 11-30 00:00: 00 Yes Dwayne Myers TAKE 1 TABLET BY MOUTH TWICE A DAY FOR 30 DAYS 0 11-30 00:00: 00 Yes Dwayne Myers TAKE 1 TABLET BY MOUTH AT BEDTIME 0 11-30 00:00: 00 Yes Dwayne Myers TAKE 1 TABLET BY MOUTH TWICE A DAY 0 11-30 00:00: 00 Yes Dwayne Myers TAKE 1 TABLET BY MOUTH EVERY 12 HOURS NEEDED FOR PAIN 0 11-28 00:00: 00 Yes Dwayne Myers SULINDAC 200MG 2021-0 - 00:00: 00 Yes Dwayne Myers METHOCARBAM OL 500MG 11-24 00:00: 00 Yes [id number] Dwayne Myers FLUOXETINE HCL 20MG - 00:00: 00 Yes Dwayne Myers PREDNISONE 20MG - 00:00: 00 Yes Dwayne Myers ALBUTEROL SULFATE HFA HFA 200 INH -16 00:00: 00 Yes Dwayne Myers predniSONE (DELTASONE) tablet 30 mg 11-12 15:00: 00 Yes 30mg 30 mg, Oral, DAILY, First dose (after last modificati on) on 11/12/21 at 0900, Until Discontinu ed, Routine [facility] piperacilli n-tazobacta m (ZOSYN) 3.375 g in NaCl 0.9% (NS) 50 mL MINI-BAG 11-11 23:30: 00 Yes 3.375g 3.375 g, IV Piggyback, Q8H ABX, First dose on Sun11/11/21 at 1730, Until Discontinu ed, Administer over 4 Hours, 50 mL
Reas on for Anti-Infec tive: Empiric Therapy for Suspected Infection< br>Empi leandro Therapy Site: Respirator y
Durat ion of therapy: 72 hours [facility] lurasidone HCl (LATUDA ORAL) 11-11 17:32: 07 Yes Take by mouth. [facility] KCL (KLOR-CON M20) tablet 20 mEq 11-11 02:00: 00 11-11 02:20 :00 No 20meq 20 mEq, Oral, ONCE, 1 dose, On Nicole 11/10/21 at 2000, Routine [facility] MIRTAZAPINE 15MG 11-11 00:00: 00 Yes Dwayne Myers predniSONE 20 mg tablet 11-11 00:00: 00 12-05 00:00 :00 No [id number] 20mg Take 1 tablet by mouth daily. [facility] piperacilli n-tazobacta m (ZOSYN) 3.375 g [...] of therapy: 72 hours [facility] enoxaparin (LOVENOX) injection 40 mg 11-10 15:00: 00 Yes 40mg 40 mg, Subcutaneo us, DAILY, First dose on Nicole 11/10/21 at 0900, Until Discontinu ed, Routine [facility] hydroCHLORO thiazide (ESIDRIX) capsule 12.5 mg 11-10 15:00: 00 Yes 12.5mg 12.5 mg, Oral, DAILY, First dose on Nicole 11/10/21 at 0900, Until Discontinu ed, Routine [facility] amLODIPine (NORVASC) tablet 10 mg 11-10 15:00: 00 Yes 10mg 10 mg, Oral, DAILY, First dose on Nicole 11/10/21 at 0900, Until Discontinu ed, Routine [facility] predniSONE (DELTASONE) tablet 40 mg 11-10 15:00: 00 11-11 17:05 :49 No 40mg 40 mg, Oral, DAILY, First dose on Nicole 11/10/21 at 0900, Until Discontinu ed, Routine [facility] docusate (COLACE) capsule 100 mg 11-10 14:00: 00 Yes 100mg 100 mg, Oral, BID, First dose on Nicole 11/10/21 at 0800, Until Discontinu ed, Routine [facility] busPIRone (BUSPAR) tablet 5 mg 11-10 14:00: 00 Yes 5mg 5 mg, Oral, BID, First dose on Nicole 11/10/21 at 0800, Until Discontinu ed, Routine [facility] lurasidone (LATUDA) tablet 20 mg 11-10 13:30: 00 Yes 20mg 20 mg, Oral, QAM-0730, First dose on Sun11/10/21 at 0730, Until Discontinu ed [facility] morpHINE injection 2 mg 11-10 07:05: 58 Yes 2mg 2 mg, Slow IV Push, Q4HPRN, Starting on Sun11/10/21 at 0105, Until Discontinu ed, Routine, Pain (scale 7-10) [facility] ondansetron (ZOFRAN (PF)) injection 4 mg 11-10 05:19: 35 Yes 4mg 4 mg, Slow IV Push, Q6HPRN, Starting on Sun11/09/21 at 2319, Until Discontinu ed, Routine, Nausea and Vomiting (N/V) [facility] HYDROcodone -acetaminop hen (NORCO 5) 5-325 mg tablet 1 tablet 11-10 05:19: 30 11-12 05:18 :30 No 1{tbl} 1 tablet, Oral, Q6HPRN, Starting on Sun11/09/21 at 2319, Until Sun11/11/21 at 2318, Routine, Pain (scale 4-6) [facility] acetaminoph en (TYLENOL) tablet 650 mg 11-10 05:19: 28 Yes 650mg 650 mg, Oral, Q6HPRN, Starting on Sun11/09/21 at 2319, Until Discontinu ed, Routine, Pain (scale 1-3) [facility] albuterol (VENTOLIN) inhaler 2 Puff 11-10 05:17: 52 Yes 2{puff} 2 Puff, Inhalation , Q6HPRN, Starting on Sun11/09/21 at 2317, Until Discontinu ed, Routine, Wheezing, Shortness of Breath [facility] iopamidol (ISOVUE 370-500 mL) injection 100 mL 11-10 04:43: 00 11-10 04:44 :00 No [id number] 100mL 100 mL, Intravenou s, ONCE, 1 dose, On Sun11/09/21 at 2300, Routine [facility] morpHINE injection 4 mg 2021-11-10 03:45: 00 11-10 02:57 :00 No 4mg 4 mg, Slow IV Push, ONCE, 1 dose, On Sun11/09/21 at 2145, [facility] piperacilli n-tazobacta m (ZOSYN) 3.375 g in NaCl 0.9% (NS) 50 mL MINI-BAG 11-10 03:45: 00 11-10 05:33 :00 No 3.375g 3.375 g, IV Piggyback, ONCE, 1 dose, On Sun11/09/21 at 2145, Administer over 30 Minutes, 50 mL
Reas on for Anti-Infec tive: Documented Infection< br>Documen britney Infection Site: HEENT
D uration of Therapy: Other (see Comments) [facility] NaCl 0.9% (NS) bolus infusion 1,000 mL 11-10 03:45: 00 11-10 05:33 :00 No 1000mL at 999 mL/hr, 1,000 mL, IV Infusion, ONCE, 1 dose, On Sun11/09/21 at 2145, [facility] ondansetron (ZOFRAN (PF)) injection 4 mg 11-10 03:00: 00 11-10 01:59 :00 No 4mg 4 mg, Slow IV Push, ONCE, 1 dose, On Sun11/09/21 at 2100, [facility] morpHINE injection 4 mg 11-10 03:00: 00 11-10 01:58 :00 No 4mg 4 mg, Slow IV Push, ONCE, 1 dose, On Sun11/09/21 at 2100, STAT [facility] albuterol (PROVENTIL) 2.5 mg /3 mL (0.083 %) nebulizer solution 2.5 mg 2021-11-10 02:00: 00 Yes 2.5mg 2.5 mg, Inhalation , QID, First dose on Sun11/09/21 at 2000, Until Discontinu ed, [facility] 0.02 % nebulizer solution 0.5 mg 11-10 02:00: 00 Yes .5mg 0.5 mg, Inhalation , QID, First dose on Sun11/09/21 at 1999, Until Discontinu ed, Routine [facility] TAKE 1 CAPSULE BY MOUTH EVERY DAY 11-07 00:00: 00 Yes Dwayne Myers FLUOXETINE HYDROCHLORI DE 40MG 11-07 00:00: 00 Yes [id number] Dwayne Myers AMOXICILLIN /CLAVULANAT E P [id number] 3-05 00:00: 00 Yes Dwayne Myers DICLOFENAC SODIUM ER 100MG ER 11-03 00:00: 00 Yes [id number] Dwayne Myers hydroCHLORO thiazide 12.5 mg capsule 10-25 00:00: 00 12-05 00:00 :00 No [id number] 12.5mg Take 1 capsule by mouth daily. [facility] lurasidone HCl (LATUDA ORAL) 10-24 17:53: 11 Yes Take by mouth. [facility] lurasidone HCl (LATUDA ORAL) 10-24 10:59: 57 Yes Take by mouth. [facility] zolpidem (AMBIEN) tablet 5 mg 10-24 04:00: 00 10-24 03:07 :00 No 5mg 5 mg, Oral, ONCE, 1 dose, On Sun10/23/21 at 2200, Routine [facility] docusate 100 mg capsule 10-24 00:00: 00 12-05 00:00 :00 No [id number] 100mg Take 1 capsule by mouth 2 (two) times daily. [facility] busPIRone 5 mg tablet 10-24 00:00: 00 12-05 00:00 :00 No [id number] 5mg Take 1 tablet by mouth 2 (two) times daily. [facility] chlorhexidi ne 0.12 % mouthwash 10-24 00:00: 00 12-05 00:00 :00 No [id number] 15mL Swish and spit out 15 mL 2 (two) times daily. [facility] albuterol 90 mcg/actuati on inhaler 10-24 00:00: 00 12-05 00:00 :00 No [id number] 2{puff} Inhale 2 Puffs every 6 (six) hours as needed for Wheezing or Shortness of Breath. [facility] predniSONE 20 mg tablet 10-24 00:00: 00 11-11 00:00 :00 No [id number] 40mg Take 2 tablets by mouth daily. [facility] acetaminoph en-codeine 300-30 mg tablet 10-24 00:00: 00 10-30 05:59 :00 No [id number] 1{tbl} Take 1 tablet by mouth every 4 (four) hours as needed for Pain (scale 4-6) for up to 5 days. Indication s: acute pain [facility] phenoL (SORE THROAT (PHENOL)) 1.4 % spray bottle 1 [place] 10-23 19:03: 59 Yes 1{spray } 1 [place], Oral, PRN, Starting on 10/23/21 at 1303, Until Discontinu ed, Routine, Sore throat [facility] zolpidem (AMBIEN) tablet 5 mg 10-23 04:00: 00 10-23 03:54 :00 No 5mg 5 mg, Oral, ONCE, 1 dose, On 10/22/21 at 2200, Routine [facility] methylpredn isolone sod succ (SOLU-MEDRO L) injection 125 mg 10-22 20:00: 00 Yes 125mg 125 mg, Intravenou s, Q8H, First dose (after last modificati on) on 10/22/21 at 1400, Until Discontinu ed, Routine [facility] hydroCHLORO thiazide (ESIDRIX) capsule 12.5 mg 10-22 15:30: 00 Yes 12.5mg 12.5 mg, Oral, DAILY, First dose on 10/22/21 at 0930, Until Discontinu ed, Routine [facility] amLODIPine (NORVASC) tablet 10 mg 10-22 15:30: 00 Yes 10mg 10 mg, Oral, DAILY, First dose on 10/22/21 at 0930, Until Discontinu ed, Routine [facility] acetaminoph en (TYLENOL) tablet 650 mg 10-22 09:54: 49 Yes 650mg 650 mg, Oral, Q6HPRN, Starting on 10/22/21 at 0354, Until Discontinu ed, Routine, Pain (scale 1-3) [facility] chlorhexidi ne (PERIDEX) 0.12 % mouthwash 15 mL 10-22 02:00: 00 Yes 15mL 15 mL, Oral (Swish And Spit Out), BID, First dose on Sun10/21/21 at 2000, Until Discontinu ed, Routine [facility] dexMEDEtomi dine 200 mcg in 0.9 % [...] maximum allowed dose, contact prescriber .
[facility] propofoL IV infusion 10-21 20:41: 59 10-22 [...] vials should be discarded after 12 hours.
[facility] fentaNYL PF (SUBLIMAZE) STD 2,500 mcg [...] at maximum allowed dose, contact prescriber .
[facility] lidocaine 4% (XYLOCAINE) 4 % (40 mg/mL) topical solution 10-21 19:00: 00 Yes PRN, Starting on Sun10/21/21 at 1300, Until Discontinu ed, Routine, Intra-op [facility] methylpredn isolone sod succ (SOLU-MEDRO L) injection 125 mg 10-21 19:00: 00 10-22 15:22 :22 No 125mg 125 mg, Intravenou s, Q6H, First dose (after last modificati on) on Sun10/21/21 at 1300, Until Discontinu ed, Routine [facility] metoprolol (LOPRESSOR) injection 5 mg 10-21 19:00: 00 10-21 19:00 :00 No 5mg 5 mg, Slow IV Push, ONCE, 1 dose, On Sun10/21/21 at 1300, Routine [facility] EPINEPHrine 1:1,000 (1 mg/mL) (ADRENALIN) injection 10-21 18:01: 00 Yes PRN, Starting on Sun10/21/21 at 1201, Until Discontinu ed, Routine, Intra-op [facility] ondansetron (ZOFRAN (PF)) injection 4 mg 10-21 17:19: 50 Yes 4mg 4 mg, Slow IV Push, PRN, 1 dose, Starting on Sun10/21/21 at 1119, Until Discontinu ed, Routine, Nausea and Vomiting (N/V), PACU [facility] NaCl 0.9% (NS) injection 10-21 17:01: 00 Yes PRN, Starting on Sun10/21/21 at 1101, Until Discontinu ed, Routine, Intra-op [facility] morpHINE injection 4 mg 10-20 23:22: 52 Yes 4mg 4 mg, Slow IV Push, Q4HPRN, Starting on Sun10/20/21 at 1722, Until Discontinu ed, Routine, Pain (scale 7-10) [facility] methylpredn isolone sod succ (SOLU-MEDRO L) injection 125 mg 10-20 20:00: 00 10-21 17:53 :24 No 125mg 125 mg, Intravenou s, Q8H, First dose (after last modificati on) on Sun10/20/21 at 1400, Until Discontinu ed, Routine [facility] furosemide (LASIX) injection 40 mg 10-20 18:00: 00 10-20 18:19 :00 No 40mg 40 mg, Slow IV Push, ONCE, 1 dose, On Sun10/20/21 at 1200, Routine [facility] pantoprazol e (PROTONIX) EC tablet 40 mg 10-20 16:45: 00 Yes 40mg 40 mg, Oral, DAILY, First dose on Sun10/20/21 at 1045, Until Discontinu ed, Routine [facility] alum-mag hydroxide-s imeth (MAALOX PLUS / MAG-AL PLUS) 200-200-20 mg/5 mL suspension 30 mL 10-20 16:37: 49 Yes 30mL 30 mL, Oral, Q6HPRN, Starting on Sun10/20/21 at 1037, Until Discontinu ed, Routine, Indigestio n [facility] acetaminoph en (TYLENOL) tablet 650 mg 10-20 16:16: 26 10-21 17:01 :51 No 650mg 650 mg, Oral, Q6HPRN, Starting on Sun10/20/21 at 1016, Until Sun10/21/21 at 1101, Routine, Pain (scale 1-3) [facility] polyethylen e glycol 3350 powder 17 g 10-20 15:00: 00 Yes 17g 17 g, Oral, DAILY, First dose on Sun10/20/21 at 0900, Until Discontinu ed, Routine [facility] docusate (COLACE) capsule 100 mg 10-20 02:00: 00 Yes 100mg 100 mg, Oral, BID, First dose on Sun10/19/21 at 2000, Until Discontinu ed, Routine [facility] hydralAZINE (APRESOLINE ) injection 10 mg 10-19 11:35: 36 Yes 10mg 10 mg, Slow IV Push, Q4HPRN, Starting on Sun10/19/21 at 0535, Until Discontinu ed, Routine, systolic BP >180
In dication: Hypertensi ve Emergency [facility] haloperidol lactate (HALDOL) injection 5 mg 10-19 08:42: 00 10-19 08:44 :00 No 5mg 5 mg, Slow IV Push, ONCE, 1 dose, On Sun10/19/21 at 0245, Routine [facility] pantoprazol e (PROTONIX) injection 40 mg 10-18 01:45: 00 10-20 16:42 :17 No 40mg 40 mg, Slow IV Push, Q24H, First dose on Sun10/17/21 at 1945, Until Discontinu ed [facility] methylpredn isolone sod succ (SOLU-MEDRO L) injection 125 mg 10-17 18:30: 00 10-20 18:10 :46 No 125mg 125 mg, Intravenou s, Q6H, First dose on Sun10/17/21 at 1230, Until Discontinu ed, Routine [facility] ziprasidone (GEODON) injection 10 mg 10-17 18:30: 00 10-17 17:35 :00 No 10mg 10 mg, Intramuscu lar, ONCE, 1 dose, On Sun10/17/21 at 1230, Routine [facility] methylPREDN ISolone sodium succinate (SOLU-MEDRO L) injection 125 mg 10-17 18:00: 00 10-17 18:28 :52 No 125mg 125 mg, Slow IV Push, Q6H, First dose on Sun10/17/21 at 1200, Until Discontinu ed, Routine [facility] thiamine (VITAMIN B1) 100 mg in NaCl 0.9% (NS) piggyback 10-17 17:45: 00 10-19 14:08 :00 No 100mg IV Piggyback, DAILY, 3 doses, First dose on Sun10/17/21 at 1145, Last dose on Sun10/19/21 at 0900, 50 mL [facility] LORazepam (ATIVAN) injection 1 mg 10-17 17:00: 00 10-19 17:33 :38 No 1mg 1 mg, Slow IV Push, Q4HPRN, Starting on Sun10/17/21 at 1100, Until Sun10/19/21 at 1133, Routine, Anxiety, Agitation [facility] ipratropium -albuteroL (DUONEB) 0.5 mg-3 mg(2.5 mg base)/3 mL nebulizer solution 3 mL 10-17 14:00: 00 Yes 3mL 3 mL, Inhalation , Q4H, First dose on Sun10/17/21 at 0800, Until Discontinu ed, Routine [facility] lidocaine 1% (PF) (XYLOCAINE) injection 5 mL 10-17 13:45: 00 10-17 13:45 :00 No 5mL 5 mL, Subcutaneo us, ONCE, 1 dose, On Sun10/17/21 at 0745, Routine [facility] NaCl 0.9% (NS) injection 10 mL 10-17 13:27: 33 Yes 10mL 10 mL, Slow IV Push, PRN, Starting on Sun10/17/21 at 0727, Until Discontinu ed, Routine, line maintenanc e [facility] haloperidol lactate (HALDOL) injection 5 mg 10-17 04:00: 00 10-17 03:03 :00 No 5mg 5 mg, Slow IV Push, ONCE, 1 dose, On Sun10/16/21 at 2200, Routine [facility] busPIRone (BUSPAR) tablet 5 mg 10-17 02:00: 00 Yes 5mg 5 mg, Oral, BID, First dose on Sun10/16/21 at 2000, Until Discontinu ed, Routine [facility] methylpredn isolone sod succ (SOLU-MEDRO L) injection 60 mg 10-16 23:00: 00 10-17 17:25 :30 No 60mg 60 mg, Slow IV Push, Q8H, First dose on Sun10/16/21 at 1700, Until Discontinu ed, Routine [facility] HYDROcodone -acetaminop hen (NORCO 5) 5-325 mg tablet 1 tablet 10-16 19:49: 46 10-21 17:01 :51 No 1{tbl} 1 tablet, Oral, Q6HPRN, Starting on Sun10/16/21 at 1349, Until Sun10/21/21 at 1101, Routine, Pain (scale 4-6) [facility] cefTRIAXone (ROCEPHIN) 1,000 mg in NaCl [...]
Durat ion of Therapy: Other (see Comments) [facility] azithromyci n (ZITHROMAX) 500 mg in [...]
Durat ion of Therapy: Other (see Comments) [facility] dexMEDEtomi dine 400 mcg in 0.9 [...] at maximum allowed dose, contact prescriber .
[facility] LORazepam (ATIVAN) injection 0.5 mg 10-15 21:43: 49 10-17 16:47 :31 No .5mg 0.5 mg, Slow IV Push, [id number], Starting on 10/15/21 at 1543, Until 10/17/21 at 1047, Routine, Anxiety [facility] iopamidol (ISOVUE 370-500 mL) injection 100 mL 10-15 20:30: 00 10-15 19:21 :00 No [id number] 100mL 100 mL, Intravenou s, ONCE, 1 dose, On 10/15/21 at 1430, Routine [facility] enoxaparin (LOVENOX) injection 40 mg 10-15 17:15: 00 10-20 16:42 :18 No 40mg 40 mg, Subcutaneo us, Q24H, First dose on 10/15/21 at 1115, Until Discontinu ed, Routine [facility] levoFLOXaci n in D5W (LEVAQUIN) 750 mg/150 [...] of therapy: 72 hours [facility] furosemide (LASIX) injection 20 mg 10-15 14:30: 00 10-15 13:38 :00 No 20mg 20 mg, IV Push, ONCE, 1 dose, On 10/15/21 at 0830, Routine [facility] calcium gluconate 1 g in NaCl 50 mL (ISO-OSM) RTU IV infusion 1 g 10-15 14:15: 00 10-15 13:37 :00 No 1g 1 g, IV Infusion, ONCE, 1 dose, On 10/15/21 at 0815, [facility] (HUMULIN R) injection 10 Units 10-15 14:15: 00 10-15 13:37 :00 No 10U 10 Units, IV Push, ONCE, 1 dose, On 10/15/21 at 0815, Routine [facility] dextrose 50 % in water (D50W) injection 50 mL 10-15 14:15: 00 10-15 13:37 :00 No 50mL 50 mL, Slow IV Push, ONCE, 1 dose, On 10/15/21 at 0815, [facility] (porcine[facility] 5,000 Units 10-15 12:00: 00 10-15 16:12 :17 No 5000U 5,000 Units, Subcutaneo us, Q8H, First dose on 10/15/21 at 0600, Until Discontinu ed, Routine [facility] vancomycin 1500 mg in NS 500 mL IV Piggyback RTU 1,500 mg 10-15 10:00: 00 10-15 16:12 :17 No 15mg/kg 1,500 mg (15 mg/kg ?100 kg), IV Piggyback, Q12H ABX, First dose on 10/15/21 at 0400, Until Discontinu ed, Administer over 90 Minutes
Reason for Anti-Infec tive: Documented Infection< br>Docu mented Infection Site: Blood
D uration of Therapy: 7 days [facility] ceFEPIme (MAXIPIME) 1,000 mg in NaCl 0.9% (NS) 50 mL MINI-BAG 10-15 09:15: 00 10-15 16:12 :17 No 1000mg 1,000 mg, IV Piggyback, Q12H ABX, First dose on 10/15/21 at 0315, Until Discontinu ed, Administer over 30 Minutes, 50 mL
Reas on for Anti-Infec tive: Documented Infection< br>Documen britney Infection Site: Blood
D uration of Therapy: 7 days [facility] ipratropium -albuteroL (DUONEB) 0.5 mg-3 mg(2.5 mg base)/3 mL nebulizer solution 3 mL 10-15 08:07: 12 Yes 3mL 3 mL, Inhalation , QIDPRN, Starting on 10/15/21 at 0207, Until Discontinu ed, Routine, Wheezing, Shortness of Breath, Bronchospa sm [facility] morpHINE injection 4 mg 2-12 08:04: 38 10-19 17:33 :44 No 4mg 4 mg, Slow IV Push, Q4HPRN, Starting on 10/15/21 at 0204, Until 10/19/21 at 1133, Routine, Pain (scale 7-10) [facility] methylPREDN ISolone 4 mg tablets 2- 00:00: 00 01-15 00:00 :00 No Follow schedule on package instructio ns [facility] methocarbam oL 500 mg tablet - 00:00: 00 01-15 00:00 :00 No 500mg Take 1 tablet by mouth. [facility] zolpidem 10 mg tablet - 00:00: 00 01-15 00:00 :00 No 10mg Take 1 tablet by mouth. [facility] ALPRAZolam 1 mg tablet - 00:00: 00 01-15 00:00 :00 No 1mg Take 1 tablet by mouth. [facility] FLUoxetine 40 mg capsule 2020-09 00:00: 00 01-15 00:00 :00 No Take by mouth. [facility] amLODIPine 10 mg tablet 2020-09 00:00: 00 01-15 00:00 :00 No 10mg Take 1 tablet by mouth. [facility] medroxyprog esterone 150 mg/mL intramuscul ar suspension 2020-09- 00:00: 00 Yes 1mg/mL Dwayne Myesr medroxyprog esterone 150 mg/mL intramuscul ar suspension 2020-09- 00:00: 00 No 1mg/mL medroxyprog esterone 150 mg/mL intramuscul ar suspension 2020-09- 00:00: 00 No 1mg/mL medroxyprog esterone 150 mg/mL intramuscul ar suspension 2020-09- 00:00: 00 No 1mg/mL medroxyprog esterone 150 [...] medroxyprog esterone 150 mg/mL intramuscul ar suspension 0 6-24 00:00: 00 Yes 1mg/mL Dwayne Myers medroxyprog esterone 150 mg/mL intramuscul ar suspension 6-24 00:00: 00 No 1mg/mL medroxyprog esterone 150 mg/mL intramuscul ar suspension 624 00:00: 00 No 1mg/mL medroxyprog esterone 150 mg/mL intramuscul ar suspension 0 6-24 00:00: 00 No 1mg/mL medroxyprog esterone 150 mg/mL intramuscul ar suspension 0 624 00:00: 00 No 1mg/mL lurasidone HCl (LATUDA ORAL) 7-17 10:16: 57 Yes Take by mouth. [facility] betamethaso ne valerate 0.1 % ointment -24 00:00: 00 12-05 00:00 :00 No SMILEY EXT AA BID [facility] triamterene -hydrochlor othiazide 37.5-25 mg per capsule 524 00:00: 00 12-05 00:00 :00 No TK 1 C PO QAM [facility] DEXILANT 60 mg capsule 05-31 00:00: 00 12-05 00:00 :00 No TK 1 C PO QD [facility] proMETHazin e 25 mg tablet 11-29 00:00: 00 12-05 00:00 :00 No TK 1 T PO Q 12 H PRN FOR 30 DAYS [facility] amLODIPine 5 mg tablet 11-21 00:00: 00 12-05 00:00 :00 No TK 1 T PO Q NIGHTLY [facility] HYDROcodone -acetaminop hen 10-325 mg tablet 10-11 00:00: 00 10-24 00:00 :00 No 1{tbl} Take 1 tablet by mouth. [facility] Zoloft 100 mg tablet 12-17 00:00: 00 Yes 15mg Dwayne F Louis trazodone 100 mg tablet 12-17 00:00: 00 Yes 51mg Dwayne F Louis Zoloft 100 mg tablet 12-17 [...] 10-16 00:00: 00 12-05 00:00 :00 No [id number] Apply to area(s) two (2) times daily. [facility] Immunizations Ordered Immunization Name Filled Immunization Name Date Status Comments Source SARS-COV-2 COVID-19 MODERNA VACCINE 2021-03-03 00:00:00 Completed [facility] SARS-COV-2 COVID-19 MODERNA VACCINE 2021-03-03 00:00:00 Completed [facility] SARS-COV-2 COVID-19 MODERNA VACCINE 2021-03-03 00:00:00 Completed [facility] SARS-COV-2 COVID-19 MODERNA VACCINE 2021-03-03 00:00:00 Completed [facility] SARS-COV-2 COVID-19 MODERNA VACCINE 2021-03-03 00:00:00 Completed [facility] SARS-COV-2 COVID-19 MODERNA VACCINE 2021-03-03 00:00:00 Completed [facility] SARS-COV-2 COVID-19 MODERNA 12+ YRS VACCINE 2021-03-03 00:00:00 Completed [facility] SARS-COV-2 COVID-19 MODERNA 12+ YRS VACCINE 2021-03-03 00:00:00 Completed [facility] SARS-COV-2 COVID-19 MODERNA 12+ YRS VACCINE 2021-03-03 00:00:00 Completed [facility] SARS-COV-2 COVID-19 MODERNA 12+ YRS VACCINE 2021-03-03 00:00:00 Completed [facility] SARS-COV-2 COVID-19 MODERNA 12+ YRS VACCINE 2021-03-03 00:00:00 Completed [facility] SARS-COV-2 COVID-19 MODERNA 12+ YRS VACCINE 2021-03-03 00:00:00 Completed [facility] SARS-COV-2 COVID-19 MODERNA 12+ YRS VACCINE 2021-03-03 00:00:00 Completed [facility] SARS-COV-2 COVID-19 MODERNA 12+ YRS VACCINE 2021-03-03 00:00:00 Completed [facility] SARS-COV-2 COVID-19 MODERNA 12+ YRS VACCINE 2021-03-03 00:00:00 Completed SARS-COV-2 COVID-19 MODERNA VACCINE 2021-03-03 00:00:00 Completed [facility] SARS-COV-2 COVID-19 MODERNA VACCINE 2021-03-03 00:00:00 Completed [facility] SARS-COV-2 COVID-19 MODERNA VACCINE 2021-03-03 00:00:00 Completed [facility] SARS-COV-2 COVID-19 MODERNA VACCINE 2021-03-03 00:00:00 Completed [facility] SARS-COV-2 COVID-19 MODERNA VACCINE 2021-03-03 00:00:00 Completed [facility] SARS-COV-2 COVID-19 MODERNA VACCINE 2021-03-03 00:00:00 Completed [facility] SARS-COV-2 COVID-19 MODERNA VACCINE 2021-03-03 00:00:00 Completed [facility] SARS-COV-2 COVID-19 MODERNA VACCINE 2021-03-03 00:00:00 Completed [facility] SARS-COV-2 COVID-19 MODERNA VACCINE 2021-03-03 00:00:00 [facility] [place] SARS-COV-2 COVID-19 MODERNA VACCINE 2021-03-03 00:00:00 Completed [facility] SARS-COV-2 COVID-19 MODERNA VACCINE 2021-03-03 00:00:00 Completed [facility] SARS-COV-2 COVID-19 MODERNA VACCINE 2021-03-03 00:00:00 Completed [facility] [place] SARS-COV-2 COVID-19 MODERNA VACCINE 2021-02-01 00:00:00 Completed [facility] SARS-COV-2 COVID-19 MODERNA VACCINE 2021-02-01 00:00:00 Completed [facility] SARS-COV-2 COVID-19 MODERNA VACCINE 2021-02-01 00:00:00 Completed [facility] SARS-COV-2 COVID-19 MODERNA VACCINE 2021-02-01 00:00:00 Completed [facility] SARS-COV-2 COVID-19 MODERNA VACCINE 2021-02-01 00:00:00 Completed [facility] SARS-COV-2 COVID-19 MODERNA VACCINE 2021-02-01 00:00:00 Completed [facility] SARS-COV-2 COVID-19 MODERNA 12+ YRS VACCINE 2021-02-01 00:00:00 Completed [facility] SARS-COV-2 COVID-19 MODERNA 12+ YRS VACCINE 2021-02-01 00:00:00 Completed [facility] SARS-COV-2 COVID-19 MODERNA 12+ YRS VACCINE 2021-02-01 00:00:00 Completed [facility] SARS-COV-2 COVID-19 MODERNA 12+ YRS VACCINE 2021-02-01 00:00:00 Completed [facility] SARS-COV-2 COVID-19 MODERNA 12+ YRS VACCINE 2021-02-01 00:00:00 Completed [facility] SARS-COV-2 COVID-19 MODERNA 12+ YRS VACCINE 2021-02-01 00:00:00 Completed [facility] SARS-COV-2 COVID-19 MODERNA 12+ YRS VACCINE 2021-02-01 00:00:00 Completed [facility] SARS-COV-2 COVID-19 MODERNA 12+ YRS VACCINE 2021-02-01 00:00:00 Completed [facility] SARS-COV-2 COVID-19 MODERNA 12+ YRS VACCINE 2021-02-01 00:00:00 Completed [facility] SARS-COV-2 COVID-19 MODERNA VACCINE 2021-02-01 00:00:00 Completed [facility] SARS-COV-2 COVID-19 MODERNA VACCINE 2021-02-01 00:00:00 Completed [facility] [place] SARS-COV-2 COVID-19 MODERNA VACCINE 2021-02-01 00:00:00 Completed [facility] SARS-COV-2 COVID-19 MODERNA VACCINE 2021-02-01 00:00:00 Completed [facility] SARS-COV-2 COVID-19 MODERNA VACCINE 2021-02-01 00:00:00 Completed [facility] SARS-COV-2 COVID-19 MODERNA VACCINE 2021-02-01 00:00:00 Completed [facility] SARS-COV-2 COVID-19 MODERNA VACCINE 2021-02-01 00:00:00 Completed [facility] SARS-COV-2 COVID-19 MODERNA VACCINE 2021-02-01 00:00:00 Completed [facility] SARS-COV-2 COVID-19 MODERNA VACCINE 2021-02-01 00:00:00 Completed [facility] SARS-COV-2 COVID-19 MODERNA VACCINE 2021-02-01 00:00:00 Completed [facility] SARS-COV-2 COVID-19 MODERNA VACCINE 2021-02-01 00:00:00 Completed [facility] SARS-COV-2 COVID-19 MODERNA VACCINE 2021-02-01 00:00:00 Completed [facility] Influenza, seasonal, inj Influenza, seasonal, inj 2020-09-02 00:00:00 Completed Dwayne Myers Influenza, seasonal, inj 2020-09-02 00:00:00 Completed Influenza, seasonal, inj 2020-09-02 00:00:00 Completed Influenza, seasonal, inj 2020-09-02 00:00:00 Completed Influenza, seasonal, inj 2020-09-02 00:00:00 Completed Influenza Virus Vaccine 2007-07-02 00:00:00 Completed [facility] [place] Influenza Virus Vaccine 2007-07-02 00:00:00 Completed [facility] Influenza Virus Vaccine 2007-07-02 00:00:00 Completed [facility] Influenza Virus Vaccine 2007-07-02 00:00:00 Completed [facility] Influenza Virus Vaccine 2007-07-02 00:00:00 Completed [facility] Influenza Virus Vaccine 2007-07-02 00:00:00 Completed [facility] Influenza Virus Vaccine 2007-07-02 00:00:00 Completed [facility] Influenza Virus Vaccine 2007-07-02 00:00:00 Completed [facility] Influenza Virus Vaccine 2007-07-02 00:00:00 Completed [facility] Influenza Virus Vaccine 2007-07-02 00:00:00 Completed [facility] Influenza Virus Vaccine 2007-07-02 00:00:00 Completed [facility] Influenza Virus Vaccine 2007-07-02 00:00:00 Completed [facility] Influenza Virus Vaccine 2007-07-02 00:00:00 Completed [facility] Influenza Virus Vaccine 2007-07-02 00:00:00 Completed [facility] Influenza Virus Vaccine 2007-07-02 00:00:00 Completed [facility] Influenza Virus Vaccine 2007-07-02 00:00:00 Completed [facility] Influenza Virus Vaccine 2007-07-02 00:00:00 Completed [facility] Influenza Virus Vaccine 2007-07-02 00:00:00 Completed [facility] Influenza Virus Vaccine 2007-07-02 00:00:00 Completed [facility] Influenza Virus Vaccine 2007-07-02 00:00:00 Completed [facility] Influenza Virus Vaccine 2007-07-02 00:00:00 Completed [facility] Influenza Virus Vaccine 2007-07-02 00:00:00 Completed [facility] Influenza Virus Vaccine 2007-07-02 00:00:00 Completed [facility] Influenza Virus Vaccine 2007-07-02 00:00:00 Completed [facility] Influenza Virus Vaccine 2007-07-02 00:00:00 Completed [facility] Influenza Virus Vaccine 2007-07-02 00:00:00 Completed [facility] Influenza Virus Vaccine 2007-07-02 00:00:00 Completed [facility] Influenza Virus Vaccine 2007-07-02 00:00:00 Completed [facility] [place] Influenza Virus Vaccine Unknown Completed [facility] [place] SARS-COV-2 COVID-19 MODERNA 12+ YRS VACCINE Unknown Completed [facility] [place] Influenza Virus Vaccine Unknown Completed [facility] SARS-COV-2 COVID-19 MODERNA 12+ YRS VACCINE Unknown Completed [facility] Influenza Virus Vaccine Unknown Completed [facility] SARS-COV-2 COVID-19 MODERNA 12+ YRS VACCINE Unknown Completed [facility] Influenza Virus Vaccine Unknown Completed [facility] SARS-COV-2 COVID-19 MODERNA 12+ YRS VACCINE Unknown Completed [facility] Influenza Virus Vaccine Unknown Completed [facility] SARS-COV-2 COVID-19 MODERNA 12+ YRS VACCINE Unknown Completed [facility] Influenza Virus Vaccine Unknown Completed [facility] SARS-COV-2 COVID-19 MODERNA 12+ YRS VACCINE Unknown Completed [facility] [place] Influenza Virus Vaccine Unknown Completed [facility] SARS-COV-2 COVID-19 MODERNA 12+ YRS VACCINE Unknown Completed [facility] Vital Signs Vital Name Observation Time Observation Value Comments S ource Systolic blood pressure 2024-07-08 04:45:00 146 mm[Hg] [facility] Diastolic blood pressure 2024-07-08 04:45:00 99 mm[Hg] [facility] Heart rate 2024-07-08 04:45:00 71 /min [facility] Body temperature 2024-07-08 04:45:00 36.72 Carleen [facility] Respiratory rate 2024-07-08 04:45:00 18 /min [facility] Oxygen saturation in Arterial blood by Pulse oximetry 2024-07-08 04:45:00 99 /min [facility] Body height 2024-07-08 01:33:00 160 cm [facility] Body weight 2024-07-08 01:33:00 89.812 kg [facility] BMI 2024-07-08 01:33:00 35.07 kg/m2 [facility] Height 2024-06-19 06:59:00 160.02 CM Weight 2024-06-19 06:59:00 89.5 KG Height 2024-06-05 06:56:00 160.02 CM Weight 2024-06-05 06:56:00 85.7 KG Height 2024-06-05 06:56:00 160.02 CM Weight 2024-06-05 06:56:00 85.7 KG Systolic blood pressure 2024-03-23 01:00:00 151 mm[Hg] [facility] Diastolic blood pressure 2024-03-23 01:00:00 99 mm[Hg] [facility] Heart rate 2024-03-23 01:00:00 79 /min [facility] Respiratory rate 2024-03-23 01:00:00 16 /min [facility] Oxygen saturation in Arterial blood by Pulse oximetry 2024-03-23 01:00:00 99 /min [facility] Body temperature 2024-03-22 22:07:00 37 Carleen [facility] Body height 2024-03-22 22:07:00 160 cm [facility] Body weight 2024-03-22 22:07:00 88.451 kg [facility] BMI 2024-03-22 22:07:00 34.54 kg/m2 [facility] Systolic blood pressure 2024-03-22 14:35:00 127 mm[Hg] [facility] Diastolic blood pressure 2024-03-22 14:35:00 80 mm[Hg] [facility] Heart rate 2024-03-22 14:35:00 77 /min [facility] Body temperature 2024-03-22 14:35:00 36.83 Carleen [facility] Respiratory rate 2024-03-22 14:35:00 20 /min [facility] Oxygen saturation in Arterial blood by Pulse oximetry 2024-03-22 14:35:00 99 /min [facility] Body height 2024-03-22 11:27:00 160 cm [facility] Body weight 2024-03-22 11:27:00 88.724 kg [facility] BMI 2024-03-22 11:27:00 34.65 kg/m2 [facility] Systolic blood pressure 2024-01-16 14:22:00 130 mm[Hg] [facility] Diastolic blood pressure 2024-01-16 14:22:00 83 mm[Hg] [facility] Heart rate 2024-01-16 14:22:00 73 /min [facility] Respiratory rate 2024-01-16 14:22:00 20 /min [facility] Body height 2024-01-16 14:22:00 160 cm [facility] Body weight 2024-01-16 14:22:00 81.557 kg [facility] BMI 2024-01-16 14:22:00 31.85 kg/m2 [facility] Oxygen saturation in Arterial blood by Pulse oximetry 2024-01-16 14:22:00 100 /min [facility] Systolic blood pressure 2023-10-13 01:23:00 153 mm[Hg] [facility] Diastolic blood pressure 2023-10-13 01:23:00 109 mm[Hg] [facility] Heart rate 2023-10-13 01:21:00 75 /min [facility] Body temperature 2023-10-13 01:21:00 37 Carleen [facility] Respiratory rate 2023-10-13 01:21:00 18 /min [facility] Body height 2023-10-13 01:21:00 160 cm [facility] Body weight 2023-10-13 01:21:00 83.008 kg [facility] BMI 2023-10-13 01:21:00 32.42 kg/m2 [facility] Oxygen saturation in Arterial blood by Pulse oximetry 2023-10-13 01:21:00 100 /min [facility] Weight 2023-06-03 21:47:00 90.1 KG Weight 2023-06-03 21:47:00 90.1 KG Height 2023-05-04 15:00:00 162.56 CM Weight 2023-05-04 15:00:00 85 KG Height 2023-04-14 22:00:00 160.02 CM Weight 2023-04-14 22:00:00 86.45 KG Height 2023-02-08 07:40:00 160.02 CM Weight 2023-02-08 07:40:00 91.6 KG Height 2022-12-11 20:32:00 13.46 CM Weight 2022-12-11 20:32:00 86.63 KG Systolic blood pressure 2022-12-11 00:01:00 163 mm[Hg] [facility] Diastolic blood pressure 2022-12-11 00:01:00 96 mm[Hg] [facility] Heart rate 2022-12-11 00:01:00 79 /min [facility] 2022-12-11 00:01:00 37.22 Carleen [facility] Respiratory rate 2022-12-11 00:01:00 20 /min [facility] Body height 2022-12-11 00:01:00 160 cm [facility] Body weight 2022-12-11 00:01:00 87 kg [facility] BMI 2022-12-11 00:01:00 33.98 kg/m2 [facility] Oxygen saturation in Arterial blood by Pulse oximetry 2022-12-11 00:01:00 99 /min [facility] Systolic blood pressure 2022-11-05 21:43:00 123 mm[Hg] [facility] Diastolic blood pressure 2022-11-05 21:43:00 84 mm[Hg] [facility] Heart rate 2022-11-05 21:43:00 59 /min [facility] Body temperature 2022-11-05 21:43:00 36.44 Carleen [facility] Oxygen saturation in Arterial blood by Pulse oximetry 2022-11-05 21:43:00 97 /min [facility] Respiratory rate 2022-11-05 17:22:00 17 /min [facility] Body height 2022-11-05 03:54:00 160 cm [facility] Body weight 2022-11-05 03:54:00 87.091 kg [facility] BMI 2022-11-05 03:54:00 34.01 kg/m2 [facility] Height 2022-08-17 11:26:00 Weight 2022-08-17 11:26:00 Systolic blood pressure 2022-07-27 13:18:00 146 mm[Hg] [facility] Diastolic blood pressure 2022-07-27 13:18:00 91 mm[Hg] [facility] Heart rate 2022-07-27 13:18:00 78 /min [facility] Body temperature 2022-07-27 13:18:00 36.44 Carleen [facility] Respiratory rate 2022-07-27 13:18:00 18 /min [facility] Oxygen saturation in Arterial blood by Pulse oximetry 2022-07-27 13:18:00 94 /min [facility] Body height 2022-07-26 05:22:00 160 cm [facility] Body weight 2022-07-26 05:22:00 97.977 kg [facility] BMI 2022-07-26 05:22:00 38.26 kg/m2 [facility] Height 2022-07-20 13:40:00 160.02 CM Weight 2022-07-20 13:40:00 89.81 KG Height 2022-07-20 11:04:00 160.02 CM Weight 2022-07-20 11:04:00 81.64 KG Systolic blood pressure 2022-06-26 00:42:00 132 mm[Hg] [facility] Diastolic blood pressure 2022-06-26 00:42:00 81 mm[Hg] [facility] Heart rate 2022-06-26 00:42:00 104 /min [facility] Body temperature 2022-06-26 00:42:00 36.67 Carleen [facility] Respiratory rate 2022-06-26 00:42:00 18 /min [facility] Oxygen saturation in Arterial blood by Pulse oximetry 2022-06-26 00:42:00 96 /min [facility] Body height 2022-06-25 00:54:00 160 cm [facility] Body weight 2022-06-25 00:54:00 98.884 kg [facility] BMI 2022-06-25 00:54:00 38.62 kg/m2 [facility] Height 2022-06-23 19:31:00 160.02 CM Weight 2022-06-23 19:31:00 86.18 KG Weight 2022-06-21 20:00:00 98.88 KG Height 2022-06-12 15:55:00 160.02 CM Weight 2022-06-12 15:55:00 81.64 KG Systolic blood pressure 2022-06-01 03:00:00 167 mm[Hg] [facility] Diastolic blood pressure 2022-06-01 03:00:00 102 mm[Hg] [facility] Heart rate 2022-06-01 03:00:00 94 /min [facility] Respiratory rate 2022-06-01 03:00:00 20 /min [facility] Oxygen saturation in Arterial blood by Pulse oximetry 2022-06-01 03:00:00 98 /min [facility] Body height 2022-06-01 01:17:00 160 cm [facility] Body weight 2022-06-01 01:17:00 89.812 kg [facility] BMI 2022-06-01 01:17:00 35.07 kg/m2 [facility] Height 2022-04-05 15:26:00 160.02 CM Weight 2022-04-05 15:26:00 90.26 KG Systolic blood pressure 2022-02-26 13:59:00 136 mm[Hg] [facility] Diastolic blood pressure 2022-02-26 13:59:00 101 mm[Hg] [facility] Heart rate 2022-02-26 13:59:00 79 /min [facility] Body temperature 2022-02-26 13:59:00 36.78 Carleen [facility] Respiratory rate 2022-02-26 13:59:00 20 /min [facility] Oxygen saturation in Arterial blood by Pulse oximetry 2022-02-26 13:59:00 100 /min [facility] Body height 2022-02-26 04:37:00 160 cm [facility] Body weight 2022-02-26 04:37:00 92.08 kg [facility] BMI 2022-02-26 04:37:00 35.96 kg/m2 [facility] Systolic blood pressure 2022-02-23 06:00:00 115 mm[Hg] [facility] Diastolic blood pressure 2022-02-23 06:00:00 83 mm[Hg] [facility] Heart rate 2022-02-23 06:00:00 62 /min [facility] Respiratory rate 2022-02-23 06:00:00 18 /min [facility] Oxygen saturation in Arterial blood by Pulse oximetry 2022-02-23 06:00:00 97 /min [facility] Body temperature 2022-02-23 02:45:00 37.83 Carleen [facility] Body height 2022-02-23 02:45:00 160 cm [facility] Body weight 2022-02-23 02:45:00 92.08 kg [facility] BMI 2022-02-23 02:45:00 35.96 kg/m2 [facility] Systolic blood pressure 2022-01-29 21:54:12 118 mm[Hg] [facility] Diastolic blood pressure 2022-01-29 21:54:12 74 mm[Hg] [facility] Heart rate 2022-01-29 21:54:12 98 /min [facility] Respiratory rate 2022-01-29 21:54:12 24 /min [facility] Oxygen saturation in Arterial blood by Pulse oximetry 2022-01-29 21:54:12 98 /min [facility] Body temperature 2022-01-29 18:53:00 37 Carleen [facility] Body height 2022-01-29 18:53:00 160 cm [facility] Body weight 2022-01-29 18:53:00 90.719 kg [facility] BMI 2022-01-29 18:53:00 35.43 kg/m2 [facility] Systolic blood pressure 2022-01-29 15:01:00 138 mm[Hg] [facility] Diastolic blood pressure 2022-01-29 15:01:00 82 mm[Hg] [facility] Heart rate 2022-01-29 15:01:00 88 /min [facility] Respiratory rate 2022-01-29 15:01:00 15 /min [facility] Oxygen saturation in Arterial blood by Pulse oximetry 2022-01-29 15:01:00 96 /min [facility] Body temperature 2022-01-29 12:58:00 36.61 [facility] Body weight 2022-01-29 12:58:00 81.647 kg [facility] BMI 2022-01-29 12:58:00 31.89 kg/m2 [facility] Height 2022-01-05 08:28:00 160.02 CM Weight 2022-01-05 08:28:00 81.64 KG Systolic blood pressure 2022-01-03 04:43:12 152 mm[Hg] [facility] Diastolic blood pressure 2022-01-03 04:43:12 112 mm[Hg] [facility] Body temperature 2022-01-03 04:43:12 37.28 Carleen [facility] Respiratory rate 2022-01-03 04:43:12 17 /min [facility] Heart rate 2022-01-03 04:42:33 88 /min [facility] Oxygen saturation in Arterial blood by Pulse oximetry 2022-01-03 04:42:33 97 /min [facility] Body height 2022-01-03 02:36:00 160 cm [facility] Body weight 2022-01-03 02:36:00 81.647 kg [facility] BMI 2022-01-03 02:36:00 31.89 kg/m2 [facility] Body temperature 2021-12-07 13:30:00 37.17 Carleen [facility] Respiratory rate 2021-12-07 13:30:00 23 /min [facility] Oxygen saturation in Arterial blood by Pulse oximetry 2021-12-07 13:14:00 97 /min [facility] Systolic blood pressure 2021-12-07 09:00:00 157 mm[Hg] [facility] Diastolic blood pressure 2021-12-07 09:00:00 99 mm[Hg] [facility] Heart rate 2021-12-07 09:00:00 82 /min [facility] Body weight 2021-12-07 08:10:00 95.709 kg [facility] BMI 2021-12-07 08:10:00 37.38 kg/m2 [facility] Body height 2021-12-06 06:30:00 160 cm [facility] Systolic blood pressure 2021-12-05 09:10:00 126 mm[Hg] [facility] Diastolic blood pressure 2021-12-05 09:10:00 71 mm[Hg] [facility] Heart rate 2021-12-05 09:10:00 85 /min [facility] Body temperature 2021-12-05 09:10:00 36.83 Carleen [facility] Respiratory rate 2021-12-05 09:10:00 18 /min [facility] Oxygen saturation in Arterial blood by Pulse oximetry 2021-12-05 09:10:00 96 /min [facility] Body height 2021-12-03 23:16:00 160 cm [facility] Body weight 2021-12-03 23:16:00 81.647 kg [facility] BMI 2021-12-03 23:16:00 31.89 kg/m2 [facility] Systolic blood pressure 2021-11-11 18:12:00 152 mm[Hg] [facility] Diastolic blood pressure 2021-11-11 18:12:00 93 mm[Hg] [facility] Heart rate 2021-11-11 18:12:00 108 /min [facility] Body temperature 2021-11-11 18:12:00 37.06 Carleen [facility] Respiratory rate 2021-11-11 18:12:00 20 /min [facility] Oxygen saturation in Arterial blood by Pulse oximetry 2021-11-11 18:12:00 95 /min [facility] Body height 2021-11-10 17:22:00 160 cm [facility] Body weight 2021-11-10 17:22:00 91 kg [facility] BMI 2021-11-10 17:22:00 35.54 kg/m2 [facility] Systolic blood pressure 2021-10-24 17:05:00 143 mm[Hg] [facility] Diastolic blood pressure 2021-10-24 17:05:00 90 mm[Hg] [facility] Heart rate 2021-10-24 17:05:00 103 /min [facility] Body temperature 2021-10-24 17:05:00 36.22 Carleen [facility] Respiratory rate 2021-10-24 17:05:00 18 /min [facility] Oxygen saturation in Arterial blood by Pulse oximetry 2021-10-24 17:05:00 95 /min [facility] Body weight 2021-10-22 10:08:00 71.215 kg bed scale [facility] BMI 2021-10-22 10:08:00 28.72 kg/m2 [facility] Body height 2021-10-17 14:00:00 157.5 cm [facility] Systolic blood pressure 2021-10-21 15:36:00 129 mm[Hg] [facility] Diastolic blood pressure 2021-10-21 15:36:00 82 mm[Hg] [facility] Heart rate 2021-10-21 15:36:00 100 /min [facility] Respiratory rate 2021-10-21 15:36:00 20 /min [facility] Oxygen saturation in Arterial blood by Pulse oximetry 2021-10-21 15:36:00 100 /min [facility] Body temperature 2021-10-21 13:07:00 36.83 Carleen [facility] Body height 2021-10-17 14:00:00 157.5 cm [facility] Body weight 2021-10-17 14:00:00 99.791 kg [facility] BMI 2021-10-17 14:00:00 28.72 kg/m2 [facility] BP Systolic 2024-07-08 15:04:00 173 mm[Hg] [facility] BP Diastolic 2024-07-08 15:04:00 106 mm[Hg] Madan phen [facility] Weight Measured 2024-07-08 15:04:00 194.60 pounds Dwayne [facility] Height Measured 2024-07-08 15:04:00 65.10 inches Dwayne [facility] Body Temperature 2024-07-08 15:04:00 97.50 degrees Dwayne [facility] Heart Rate 2024-07-08 15:04:00 86.00 /min [facility] Respiratory Rate 2024-07-08 15:04:00 18.00 /min Dwayne [facility] BP Systolic 2024-06-27 16:14:00 130 mm[Hg] [facility] BP Diastolic 2024-06-27 16:14:00 87 mm[Hg] [facility]an [facility] Weight Measured 2024-06-27 16:14:00 182.00 pounds Dwayne [facility] Height Measured 2024-06-27 16:14:00 65.10 inches Dwayne [facility] Body Temperature 2024-06-27 16:14:00 Dwayne [facility] Heart Rate 2024-06-27 16:14:00 69.00 /min [facility] Respiratory Rate 2024-06-27 16:14:00 19.00 /min Dwayne F [facility] BP Systolic 2024-05-13 17:21:00 126 mm[Hg] Step [...] [facility] Weight Measured 2024-04-15 11:14:00 184.80 pounds Dawyne [facility] Height Measured 2024-04-15 11:14:00 65.10 [...] [facility] Body Temperature 2023-06-26 11:11:00 97.40 degrees Dwayne F [facility] Heart Rate 2023-06-26 11:11:00 67.00 /min [facility] Respiratory Rate 2023-06-26 11:11:00 Dwayne F [facility] BP Systolic 2022-09-25 11:01:00 155 mm[Hg] BP [...] Date / Time Performed Performing Clinician Source EKG-12 LEAD 2024-07-08 04:31:55 [facility] TROPONIN I 2024-07-08 02:10:00 [facility] COMP. METABOLIC PANEL ([id number]) 2024-07-08 02:10:00 [facility] CBC WITH DIFF 2024-07-08 02:10:00 [facility] INTRO AIF SP CANAL PERQ APPROACH 2024-06-19 00:00:00 [facility] INTRO ANEST AGENT SPINAL CANAL PERQ 2024-06-19 00:00:00 [facility] INTRO AIF JOINTS PERQ APPROACH 2024-06-05 06:45:00 [facility] INTRO ANESTHETIC AGENT JOINTS PERQ 2024-06-05 06:45:00 [facility] INTRO AIF JOINTS PERQ APPROACH 2024-06-05 06:45:00 [facility] INTRO ANESTHETIC AGENT JOINTS PERQ 2024-06-05 06:45:00 [facility] [id number] Ultrasound, Abdominal, Real Time With Image Documentation; Complete 2024-04-10 00:00:00 Dwayne Myers LIPASE 2024-03-22 23:03:00 Chapin Jimy Un [facility] TROPONIN I 2024-03-22 23:03:00 Chapin Jimy Un [facility] COMP. METABOLIC PANEL ([id number]) 2024-03-22 23:03:00 Jimy Cameron [facility] CBC WITH DIFF 2024-03-22 23:03:00 [facility] 2024-03-22 23:03:00 Jimy Cameron Un [facility] RAPID STREP SCREEN FOR GROUP A 2024-03-22 11:34:00 Gabriel Garcia [facility] INFLUENZA A/B RSV COVID NAAT 2024-03-22 11:34:00 Gabriel Garcia [facility] XR ANKLE 3+ VW RIGHT 2023-10-13 02:37:00 Eloy Shipley [facility] XR FEMUR 2 VW RIGHT 2023-10-13 02:37:00 María Shipley [facility] XR HIPS 2 VW RIGHT 2023-10-13 02:37:00 Kavitha Shipley [facility] XR KNEE 3 VW RIGHT 2023-10-13 02:37:00 Nelson Hernandez [facility] CONSENT/REFUSAL FOR DIAGNOSIS AND TREATMENT 2023-10-13 00:49:50 Doctor Unassigned, [place] [facility] REFERRAL- REQUEST/RESPONSE 2023-08-23 06:01:00 Doctor Unassigned, [place] [facility] DESTRUCT LUMBAR NERVE PERQ APPROACH 2023-02-08 00:00:00 [facility] REFERRAL- REQUEST/RESPONSE 2022-12-25 05:01:00 Doctor Unassigned, [place] [facility] XR KNEE 3 VW RIGHT 2022-12-11 00:44:07 Oren Tovar [facility] NOTICE OF PRIVACY PRACTICES 2022-12-10 23:48:22 Doctor Unassigned, [place] [facility] CONSENT/REFUSAL FOR DIAGNOSIS AND TREATMENT 2022-12-10 23:47:38 Doctor Unassigned, [place] [facility] AUTHORIZATION FOR RELEASE OF PHI 2022-11-22 05:01:00 Doctor Unassigned, [place] [facility] TROPONIN I 2022-11-05 20:53:00 Zelda Olsen [facility] TROPONIN I 2022-11-05 14:07:00 Zelda Olsen [facility] THYROID STIMULATING HORMONE 2022-11-05 14:07:00 Nichole Weldon [facility] EKG-12 LEAD 2022-11-05 13:47:04 [facility] CT CHEST PULMONARY ANGIOGRAM 2022-11-05 09:00:08 Yuniel Mccray [facility] TEST, SERUM 2022-11-05 07:07:00 Tiffani Mccray [facility] TROPONIN I 2022-11-05 07:07:00 [facility]cc[facility] COMP. METABOLIC PANEL ([id number]) 2022-11-05 07:07:00 Yuniel Mccray [facility] CBC WITH DIFF 2022-11-05 07:07:00 Yuniel Mccray [facility] PROTHROMBIN TIME / INR 2022-11-05 07:07:00 Kelvin Mccray [facility] D-DIMER 2022-11-05 07:07:00 [facility]cc[facility] ACTIVATED PARTIAL THRMPLAS ANTONINO 2022-11-05 07:07:00 Yuniel Mccray [facility] N-TERMINAL PRO-BNP 2022-11-05 07:07:00 Yuniel Mccray [facility] XR CHEST 1 VW 2022-11-05 04:39:20 Yuniel Mccray [facility] COVID-19 (ID NOW RAPID TESTING) 2022-11-05 04:33:00 Yuniel Mccray [facility] CONSENT/REFUSAL FOR DIAGNOSIS AND TREATMENT 2022-11-05 03:43:00 Doctor Unassigned, [place] [facility] INTRO ANES AGT PERIPH NRV\\T\\PLEXI PC 2022-08-17 00:00:00 [facility] AIF PERIPH NRV PLEXI PERQ 2022-08-17 00:00:00 [facility] TRANSTHORACIC ECHO (TTE) LIMITED 2022-07-26 17:38:46 Jamia Benson [facility] EKG-12 LEAD 2022-07-26 04:19:[address] [facility] [address] CHEST PULMONARY ANGIOGRAM 2022-07-26 03:22:22 Ced Hernández [facility] XR CHEST 1 VW 2022-07-26 02:35:21 Glenna [facility] MAGNESIUM 2022-07-26 02:27:00 Jamia Benson [facility] TEST, SERUM 2022-07-26 02:27:00 Glenna [facility] TROPONIN I 2022-07-26 02:27:00 [facility] COMP. METABOLIC PANEL ([id number]) 2022-07-26 02:27:00 Glenna [facility] CBC WITH DIFF 2022-07-26 02:27:00 Glenna [facility] D-DIMER 2022-07-26 02:27:00 [facility] RAPID INFLUENZA A/B 2022-07-26 02:27:00 Umm Manzanares [facility] N-TERMINAL PRO-BNP 2022-07-26 02:27:00 Ced Hernández Un [facility] COVID-19 (ID NOW RAPID TESTING) 2022-07-26 02:27:00 Glenna [facility] LAB ONLY COVID INTERPRETATION 2022-07-26 02:27:00 Glenna [facility] POCT TEST 2022-07-26 02:25:00 [facility] CONSENT/REFUSAL FOR DIAGNOSIS AND TREATMENT 2022-07-26 01:46:49 Doctor Unassigned, [place] [facility] INTRO DSTRUC AGT CL NRV PLEXI PC 2022-07-20 00:00:00 [facility] TROPONIN I 2022-06-25 13:36:00 Michael MaliAnaya saucedo [facility] THYRO[facility] STIMULATING HORMONE 2022-06-25 13:36:00 Lance Shakira [facility] TROPONIN I 2022-06-25 10:40:00 Michael MaliAnaya saucedo [facility] CHEST 2022-06-25 08:02:00 Vi Kline [facility] EKG-12 LEAD 2022-06-25 05:02:32 Jaden [facility]iddiqui [facility] URINALYSIS 2022-06-25 03:47:00 Edgard [facility]aden [facility] TROPONIN I 2022-06-25 03:35:00 Edgard Jaden [facility] COMP. METABOLIC PANEL ([id number]) 2022-06-25 03:35:00 [facility]FF 2022-06-25 03:35:00 Edgard [facility] PROTHROMBIN TIME / INR 2022-06-25 03:35:00 [facility] D-DIMER 2022-06-25 03:35:00 Michael SharmaAnaya Un [facility] N-TERMINAL PRO-BNP 2022-06-25 03:35:00 Edgard [facility] CONSENT/REFUSAL FOR DIAGNOSIS AND TREATMENT 2022-06-25 00:16:13 Doctor Unassigned, [place] [facility] XR CHEST 1 VW 2022-06-24 14:12:00 Jaden Siddiqui [facility] INTRO ANES AGT PERIPH NRV\\T\\PLEXI PC 2022-06-15 00:00:00 [facility] INTRO AIF PERIPH NRV PLEXI PERQ 2022-06-15 00:00:00 [facility] AUTHORIZATION FOR RELEASE OF PHI 2022-06-08 05:01:00 Doctor Unassigned, [place] [facility] XR CHEST 1 VW 2022-06-01 02:07:14 [facility] KNEE <3 VW RIGHT 2022-06-01 02:07:14 Gabriel Garcia [facility] XR SHOULDER 2+ VW RIGHT 2022-06-01 02:07:14 Lela Garcia [facility] CT CERVICAL SPINE WO CONTRAST 2022-06-01 02:05:05 Gabriel Garcia [facility] CT HEAD WO CONTRAST 2022-06-01 02:05:05 Gabriel Garcia [facility] CONSENT/REFUSAL FOR DIAGNOSIS AND TREATMENT 2022-06-01 01:15:31 Doctor Unassigned, [place] [facility] INTRO ANES AGT PERIPH NRV\\T\\PLEXI PC 2022-05-11 00:00:00 [facility] INTRO AIF PERIPH NRV PLEXI PERQ 2022-05-11 00:00:00 [facility] INTRO ANES AGT PERIPH NRV\\T\\PLEXI PC 2022-04-06 00:00:00 [facility] INTRO AIF PERIPH NRV PLEXI PERQ 2022-04-06 00:00:00 [facility] ASSIGNMENT OF BENEFITS 2022-03-14 20:14:00 Docto r Unassigned, [place] [facility] CT THORAX WO CONTRAST 2022-02-26 13:20:05 Anaya Kline [facility] BASIC METABOLIC PANEL (NA, K, CL, CO2, GLUCOSE, BUN, CREATININE, CA) 2022-02-26 09:29:00 Anaya Kline [facility] CBC WITH DIFF 2022-02-26 09:29:00 [facility]12 LEAD 2022-02-26 06:20:06 Jimy [facility] LIPASE 2022-02-26 03:28:00 Jimy Cameron Un [facility] TROPONIN I 2022-02-26 03:28:00 Jimy Cameron Un [facility] COMP. METABOLIC PANEL ([id number]) 2022-02-26 03:28:00 Jimy Cameron [facility] CBC WITH DIFF 2022-02-26 03:28:00 Jimy Cameron [facility] N-TERMINAL PRO-BNP 2022-02-26 03:28:00 Angelia Cameron [facility] XR CHEST 1 VW 2022-02-26 01:52:00 Jimy Cameron [facility] COVID-19 (ID NOW RAPID TESTING) 2022-02-26 01:03:00 Jimy Cameron [facility] CT HEAD WO CONTRAST 2022-02-25 23:59:38 Jose Enrique Cameron [facility] CONSENT/REFUSAL FOR DIAGNOSIS AND TREATMENT 2022-02-25 22:55:28 Doctor Unassigned, [place] [facility] EKG-12 LEAD 2022-02-23 06:15:35 Bro Ann [facility] TROPONIN I 2022-02-23 05:20:00 Bro Ann [facility] XR CHEST 2 VW 2022-02-23 03:47:00 Bro Ann [facility] URINALYSIS 2022-02-23 03:26:00 Bro Ann [facility] TROPONIN I 2022-02-23 03:12:00 Bro Ann [facility] COMP. METABOLIC PANEL ([id number]) 2022-02-23 03:12:00 Bro Ann [facility] CBC WITH DIFF 2022-02-23 03:12:00 Bro Ann [facility] RAPID INFLUENZA A/B 2022-02-23 03:12:00 Linda Ann [facility] N-TERMINAL PRO-BNP 2022-02-23 03:12:00 Sue Ann [facility] COVID-19 (ID NOW RAPID TESTING) 2022-02-23 03:12:00 Bro Ann [facility] CONSENT/REFUSAL FOR DIAGNOSIS AND TREATMENT 2022-02-23 02:38:26 Doctor Unassigned, [place] [facility] XR LUMBAR SPINE 2 2022-01-29 20:25:58 Rudy Siddiqui [facility] CONSENT/REFUSAL FOR DIAGNOSIS AND TREATMENT 2022-01-29 18:42:46 Doctor Unassigned, [place] [facility] XR CHEST 1 2022-01-29 13:43:00 Mai Del Rosario [facility] TROPONIN I 2022-01-29 13:34:00 Mai [facility] COMP. METABOLIC PANEL ([id number]) 2022-01-29 13:34:00 Mai Del Rosario [facility] CBC WITH DIFF 2022-01-29 13:34:00 Mai Del Rosario [facility] N-TERMINAL PRO-BNP 2022-01-29 13:34:00 Ricky Del Rosario [facility] AC PANEL 21 + LACTIC ACID 2022-01-29 13:34:00 Mai Del Rosario [facility] CONSENT/REFUSAL FOR DIAGNOSIS AND TREATMENT 2022-01-29 12:47:51 Doctor Unassigned, [place] [facility] INTRO ANES AGT PERIPH NRV\\T\\PLEXI PC 2022-01-05 00:00:00 [facility] INTRO AIF PERIPH NRV PLEXI PERQ 2022-01-05 00:00:00 [facility] XR CHEST 1 2022-01-03 04:29:34 Jacklyn Guillen [facility] CONSENT/REFUSAL FOR DIAGNOSIS AND TREATMENT 2022-01-03 02:30:38 Doctor Unassigned, [place] [facility] MAGNESIUM 2021-12-07 09:01:00 David Lazo [facility] COMP. METABOLIC PANEL ([id number]) 2021-12-07 09:01:00 Gely Hernandez [facility] CBC WITH DIFF 2021-12-07 09:01:[address] [facility] N-TERMINAL PRO-BNP 2021-12-07 09:01:00 Gely Hernandez [facility] URINALYSIS 2021-12-06 16:46:00 [facility] 2021-12-06 16:46:00 Gely Hernandez [facility] PHOSPHORUS 2021-12-06 10:11:00 Gely Hernandez [facility] MAGNESIUM 2021-12-06 10:11:[address] [facility] VITAMIN B12, LEVEL 2021-12-06 10:11:00 Gely Hernandez [facility] C-REACTIVE PROTEIN 2021-12-06 10:11:00 Gely Hernandez [facility] TROPONIN I 2021-12-06 10:11:[address] [facility] FREE T4 2021-12-06 10:11:[address] [facility] COMP. METABOLIC PANEL ([id number]) 2021-12-06 10:11:00 Gely Hernandez [facility] SEDIMENTATION RATE 2021-12-06 10:11:00 Gely Hernandez [facility] CBC WITH DIFF 2021-12-06 10:11:00 Gely Hernandez [facility] N-TERMINAL PRO-BNP 2021-12-06 10:11:00 Gely Hernandez [facility] VITAMIN D, 25-OH 2021-12-06 10:11:00 [facility] 2021-12-06 10:11:00 [facility] 2021-12-06 10:11:00 Gely Hernandez [facility] AC VBG + LACTIC ACID 2021-12-06 10:10:00 Hyacinth Hernandez [facility] COVID-19 (ID NOW RAPID TESTING) 2021-12-06 00:09:00 Oren Tovar [facility] LAB ONLY COVID INTERPRETATION 2021-12-06 00:09:00 Oren Tovar [facility] URIC ACID 2021-12-06 00:07:[address] [facility] FERRITIN SERUM 2021-12-06 00:07:00 [facility] TROPONIN I 2021-12-06 00:07[facility] HORMONE 2021-12-06 00:07:00 [facility] COMP. METABOLIC PANEL ([id number]) 2021-12-06 00:07:00 Oren Tovar [facility] LIPID PANEL ([id number])(TOTAL CHOLESTEROL, TRIGLYCERIDES, HDL) 2021-12-06 00:07:00 [facility] IRON PANEL 2021-12-06 00:07:[address] [facility] DIFF CONSULT INTERPRETATION 2021-12-06 00:07:00 [facility] CBC WITH DIFF 2021-12-06 00:07:00 Oren Tovar [facility] GLYCOSYLATED HEMOGLOBIN (A1C) 2021-12-06 00:07:00 [facility] PROTHROMBIN TIME / INR 2021-12-06 00:07:00 Sathya Tovar [facility] ACTIVATED PARTIAL THRMPLAS ANTONINO 2021-12-06 00:07:00 Guy Oren [facility] N-TERMINAL PRO-BNP 2021-12-06 00:07:00 Oren Tovar [facility] HB ECG ROUTINE & RHYTHM STRIP 2021-12-06 00:05:16 Oren Tovar [facility] XR CHEST 1 VW 2021-12-05 23:50:38 Oren Tovar [facility] ASSIGNMENT OF BENEFITS 2021-12-05 23:47:08 Docto r Unassigned, [place] [facility] NOTICE OF PRIVACY PRACTICES 2021-12-05 22:03:59 Doctor Unassigned, [place] [facility] CONSENT/REFUSAL FOR DIAGNOSIS AND TREATMENT 2021-12-05 22:03:42 Doctor Unassigned, [place] [facility] CT ANGIOGRAM CHEST 2021-12-04 20:47:15 Wilfrid Hathaway [facility] LACTIC ACID WHOLE BLOOD 2021-12-04 15:19:00 Wilfrid Hathaway [facility] BLOOD CULTURE SCREEN 2021-12-04 10:21:00 Ayesha You [facility] LACTIC ACID WHOLE BLOOD 2021-12-04 09:08:00 Deloris You [facility] BASIC METABOLIC PANEL (NA, K, CL, CO2, GLUCOSE, BUN, CREATININE, CA) 2021-12-04 09:07:00 Wilfrid Hathaway [facility] CBC WITH DIFF 2021-12-04 09:07:00 Wilfrid Hathaway [facility] EKG-12 LEAD 2021-12-03 21:29:00 [facility] + LACTIC ACID 2021-12-03 21:13:00 Lexi Brush [facility] AMYLASE 2021-12-03 21:12:00 [facility] LIP[facility] 2021-12-03 21:12:00 Maury Brush Un [facility] TROPONIN I 2021-12-03 21:12:00 Maury Brush Un [facility] COMP. METABOLIC PANEL ([id number]) 2021-12-03 21:12:00 Maury Brush [facility] CBC WITH DIFF 2021-12-03 21:12:00 Maury Brush U [facility] N-TERMINAL PRO-BNP 2021-12-03 21:12:00 Sonia Brush [facility] PROCALCITONIN 2021-12-03 21:12:00 Abu Atherah, Emran U [facility] XR CHEST 1 VW 2021-12-03 20:52:01 Maury Brush U [facility] URINALYSIS 2021-12-03 20:34:00 [facility] COVID-19 (ID NOW RAPID TESTING) 2021-12-03 20:34:00 Maruy Brush [facility] AUTHORIZATION FOR RELEASE OF PHI 2021-11-23 05:01:00 Doctor Unassigned, [place] [facility] EKG-12 LEAD 2021-11-11 05:25:58 Jimy Cameron [facility] BASIC METABOLIC PANEL (NA, K, CL, CO2, GLUCOSE, BUN, CREATININE, CA) 2021-11-10 09:16:00 Michel [facility] CBC WITH DIFF 2021-11-10 09:16:00 Wilfrid Hathaway [facility] LACTIC ACID WHOLE BLOOD 2021-11-10 09:16:00 Jimy Cameron [facility] CT CHEST PULMONARY ANGIOGRAM 2021-11-10 04:49:21 Jimy Cameron [facility] BLOOD CULTURE SCREEN 2021-11-10 03:58:00 [facility] BLOOD CULTURE WORKUP 2021-11-10 03:58:00 [facility] BLOOD CULTURE SCREEN 2021-11-10 02:56:00 Stevan Cameron [facility] PROTHROMBIN TIME / INR 2021-11-10 01:47:00 Jonathon Cameron [facility] D-DIMER 2021-11-10 01:47:00 Jimy Cameron [facility] ACTIVATED PARTIAL THRMPLAS ANTONINO 2021-11-10 01:47:00 Jimy Cameron [facility] COVID-19 (ID NOW RAPID TESTING) 2021-11-10 01:47:00 Jimy Cameron [facility] LAB ONLY COVID INTERPRETATION 2021-11-10 01:47:00 Jimy Cameron [facility] AC ABG + LACTIC ACID 2021-11-10 01:45:00 Stevan Cameron [facility] XR CHEST 1 VW 2021-11-10 01:38:00 Jimy Cameron [facility] COMP. METABOLIC PANEL ([id number]) 2021-11-10 01:32:00 Jimy Cameron [facility] CBC WITH DIFF 2021-11-10 01:32:00 Chapin, Jimy [facility] CONSENT/REFUSAL FOR DIAGNOSIS AND TREATMENT 2021-11-10 00:42:41 Doctor Unassigned, [place] [facility] AUTHORIZATION FOR RELEASE OF PHI 2021-11-07 06:01:00 Doctor Unassigned, [place] [facility] EXTERNAL PROVIDER - WOMEN'S SERVICES RADIOLOGY 2021-11-03 06:01:00 Doctor Unassigned, [place] [facility] XR CHEST 1 2021-10-24 18:45:48 Abu Anaya Sharma U [facility] XR CHEST 1 2021-10-24 18:45:48 Abu Sher, Anaya [facility] BASIC METABOLIC PANEL (NA, K, CL, CO2, GLUCOSE, BUN, CREATININE, CA) 2021-10-24 12:36:00 Renato [facility] CBC WITHOUT DIFF 2021-10-24 12:36:00 Benjamin Gross [facility] BASIC METABOLIC PANEL (NA, K, CL, CO2, GLUCOSE, BUN, CREATININE, CA) 2021-10-24 12:36:00 Renato [facility] CBC WITHOUT DIFF 2021-10-24 12:36:00 Benjamin Gross [facility] XR CHEST 1 2021-10-22 15:58:26 AbAnaya Dover [facility] XR CHEST 1 2021-10-22 15:58:26 Anaya Kline [facility] MAGNESIUM 2021-10-22 10:47:00 Zelda Olsen [facility] BASIC METABOLIC PANEL (NA, K, CL, CO2, GLUCOSE, BUN, CREATININE, CA) 2021-10-22 10:47:00 Zelda Olsen [facility] CBC WITH DIFF 2021-10-22 10:47:00 Zelda Olsen [facility] MAGNESIUM 2021-10-22 10:47:00 Zelda Olsen [facility] BASIC METABOLIC PANEL (NA, K, CL, CO2, GLUCOSE, BUN, CREATININE, CA) 2021-10-22 10:47:00 Zelda Olsen [facility] CBC WITH DIFF 2021-10-22 10:47:00 Zelda Olsen [facility] XR CHEST 1 VW 2021-10-21 22:10:00 Abu Anaya Sharma [facility] XR CHEST 1 VW 2021-10-21 22:10:00 Abu Anaya Sharma [facility] AC PANEL 20 + LACTIC ACID 2021-10-21 20:28:00 Abu [facility] AC PANEL 20 + LACTIC ACID 2021-10-21 20:28:00 Abu Anaya Welch [facility] CYTO BAL 2021-10-21 18:49:00 Abu Anaya Sharma [facility] BODY FLUID DIRECT COUNT 2021-10-21 18:47:00 Abu Athera h [facility] BODY FLUID DIRECT COUNT 2021-10-21 18:47:00 Abu Athera h, [facility] AFB CULTURE 2021-10-21 18:46:00 Abu Anaya Sharma [facility] FUNGUS (ROUTINE) CULTURE 2021-10-21 18:46:00 Abu Ather , [facility] MYCOBACTERIUM TUBERCULOSIS COMPLEX PCR 2021-10-21 18:46:00 Abu Ather [facility] RESPIRATORY PANEL BY PCR 2021-10-21 18:46:00 Abu Ather lewis, [facility] AF[employer] CULTURE 2021-10-21 18:46:00 Abu Anaya Sharma [facility] FUNGUS (ROUTINE) CULTURE 2021-10-21 18:46:00 Abu Ather , [facility] MYCOBACTERIUM TUBERCULOSIS COMPLEX PCR 2021-10-21 18:46:00 Abu Ather [facility] RESPIRATORY PANEL BY PCR 2021-10-21 18:46:00 Abu Ather [facility] BASIC METABOLIC PANEL (NA, K, CL, CO2, GLUCOSE, BUN, CREATININE, CA) 2021-10-21 18:44:00 Abu Atherah, Emran [facility] BASIC METABOLIC PANEL (NA, K, CL, CO2, GLUCOSE, BUN, CREATININE, CA) 2021-10-21 18:44:00 Anaya Kline [facility] CBC WITH DIFF 2021-10-21 18:41:00 Anaya Kline Ki [facility] PROTHROMBIN TIME / INR 2021-10-21 18:41:00 AbAnaya Dover [facility] FIBRINOGEN 2021-10-21 18:41:00 AbAnaya Dover Bang [facility] CBC WITH DIFF 2021-10-21 18:41:00 AbAnaya Dover iK [facility] PROTHROMBIN TIME / INR 2021-10-21 18:41:00 Abki [facility] FIBRINOGEN 2021-10-21 18:41:00 ki MaliAnaya saucedo Bang [facility] ANTI-NUCLEAR ANTIBODY SCREEN 2021-10-21 18:41:00 Michael Sharma Caseamina [facility] FL TIME OR (NON-REPORTABLE) 2021-10-21 18:18:06 Abki Malilewis [facility] FL TIME OR (NON-REPORTABLE) 2021-10-21 18:18:06 Michael Samsonlewis [facility] FLEXIBLE BRONCHOSCOPY 2021-10-21 16:21:00 Michael Samsonlewis [facility] FLEXIBLE BRONCHOSCOPY 2021-10-21 16:21:00 Michael Sharma Caseamina [facility] XR CHEST 1 VW 2021-10-20 11:13:00 Anaya Dover [facility] XR CHEST 1 VW 2021-10-20 11:13:00 Michael Sharma Caseamina Rudd [facility] CBC WITH DIFF 2021-10-20 10:30:00 Maggie Morgan [facility] CBC WITH DIFF 2021-10-20 10:30:00 Maggie Morgan [facility] URIC ACID 2021-10-20 10:29:00 u SherCaseamina [facility] BASIC METABOLIC PANEL (NA, K, CL, CO2, GLUCOSE, BUN, CREATININE, CA) 2021-10-20 10:29:00 Maggie Morgan [facility] URIC ACID 2021-10-20 10:29:00 [facility] BASIC METABOLIC PANEL (NA, K, CL, CO2, GLUCOSE, BUN, CREATININE, CA) 2021-10-20 10:29:00 Maggie Morgan [facility] XR CHEST 1 VW 2021-10-19 18:11:14 Anaya Kline U [facility] XR CHEST 1 VW 2021-10-19 18:11:14 Anaya Kline [facility] CBC WITH DIFF 2021-10-19 09:05:00 Maggie Morgan [facility] CBC WITH DIFF 2021-10-19 09:05:00 Maggie Morgan [facility] MAGNESIUM 2021-10-19 09:04:00 Zelda Olsen [facility] BASIC METABOLIC PANEL (NA, K, CL, CO2, GLUCOSE, BUN, CREATININE, CA) 2021-10-19 09:04:00 Maggie Morgan [facility] MAGNESIUM 2021-10-19 09:04:00 Zelda Olsen [facility] BASIC METABOLIC PANEL (NA, K, CL, CO2, GLUCOSE, BUN, CREATININE, CA) 2021-10-19 09:04:00 Maggie Morgan [facility] POCT GLUCOSE (AUTOMATED) 2021-10-19 02:24:00 Yamini Talavera [facility] POCT GLUCOSE (AUTOMATED) 2021-10-19 02:24:00 Yamini Talavera [facility] COVID-19 (MOLECULAR TESTING NUCLEIC ACID AMPLIFICATION) 2021-10-18 19:48:00 Vale Jones [facility] LAB ONLY COVID INTERPRETATION 2021-10-18 19:48:00 Vale Jones [facility] COVID-19 (MOLECULAR TESTING NUCLEIC ACID AMPLIFICATION) 2021-10-18 19:48:00 Nyalakonda, [facility] LAB ONLY COVID INTERPRETATION 2021-10-18 19:48:00 Robert [facility] ANGIOTENSIN CONVERTING ENZYME 2021-10-18 19:45:00 Robert [facility] RHEUMATOID FACTOR 2021-10-18 19:45:00 Amadou Putnam [facility] ANCA SCREEN 2021-10-18 19:45:00 Robert [facility] ANGIOTENSIN CONVERTING ENZYME 2021-10-18 19:45:00 Robert [facility] RHEUMATOID FACTOR 2021-10-18 19:45:00 Amadou Putnam [facility] ANCA SCREEN 2021-10-18 19:45:00 Vale Jones [facility] XR CHEST 1 VW 2021-10-18 12:37:00 Abu Atherlewis, Emran [facility] XR CHEST 1 VW 2021-10-18 12:37:00 Abu Atherah, Emran [facility] PHOSPHORUS 2021-10-18 09:30:00 Rose [facility] MAGNESIUM 2021-10-18 09:30:00 Rose [facility] BASIC METABOLIC PANEL (NA, K, CL, CO2, GLUCOSE, BUN, CREATININE, CA) 2021-10-18 09:30:00 Rose [facility] CBC WITH DIFF 2021-10-18 09:30:00 Zelda Olsen [facility] GLYCOSYLATED HEMOGLOBIN (A1C) 2021-10-18 09:30:00 Maggie Morgan [facility] PHOSPHORUS 2021-10-18 09:30:00 Zelda Olsen [facility] MAGNESIUM 2021-10-18 09:30:00 Rose [facility] BASIC METABOLIC PANEL (NA, K, CL, CO2, GLUCOSE, BUN, CREATININE, CA) 2021-10-18 09:30:00 Rose [facility] CBC WITH DIFF 2021-10-18 09:30:00 Ezzo, Ali [facility] GLYCOSYLATED HEMOGLOBIN (A1C) 2021-10-18 09:30:00 Maggie Morgan [facility] BASIC METABOLIC PANEL (NA, K, CL, CO2, GLUCOSE, BUN, CREATININE, CA) 2021-10-18 00:43:00 Michael Sharma [facility] BASIC METABOLIC PANEL (NA, K, CL, CO2, GLUCOSE, BUN, CREATININE, CA) 2021-10-18 00:43:00 Michael Sharma [facility] N-TERMINAL PRO-BNP 2021-10-17 21:27:00 Samir Galindo [facility] N-TERMINAL PRO-BNP 2021-10-17 21:27:00 Samir Galindo [facility] TRANSTHORACIC ECHO (TTE) COMPLETE 2021-10-17 17:05:00 Bk [facility] TRANSTHORACIC ECHO (TTE) COMPLETE 2021-10-17 17:05:00 Bk [facility] XR CHEST 1 2021-10-17 17:00:50 [facility] 2021-10-17 17:00:50 [facility]ST 1 2021-10-17 14:17:12 [facility]ST 1 2021-10-17 14:17:[address] [facility] ABG+COOX+NA+K+GLU+CA2+ 2021-10-17 13:25:00 Rey Parada [facility] ABG+COOX+NA+K+GLU+CA2+ 2021-10-17 13:25:00 Rey Parada [facility] PHOSPHORUS 2021-10-17 10:28:00 Samir Galindo [facility] MAGNESIUM 2021-10-17 10:28:00 Samir Galindo [facility] BASIC METABOLIC PANEL (NA, K, CL, CO2, GLUCOSE, BUN, CREATININE, CA) 2021-10-17 10:28:00 [facility] R[facility] 2021-10-17 10:28:00 Faraz Parada [facility] CBC WITH DIFF 2021-10-17 10:28:[address] [facility] ANTI-NUCLEAR ANTIBODY SCREEN 2021-10-17 10:28:00 ParadaFaraz [facility] ANTI-NUCLEAR ANTIBODY TITER 2021-10-17 10:28:00 Parada [facility] ANTI-DOUBLE STRANDED DNA 2021-10-17 10:28:00 Amadou Putnam [facility] HIV 1/2 AG-AB WITH REFLEX 2021-10-17 10:28:00 Abu Anaya Welch [facility] ANTI-NUCLEAR ANTIBODY-PATHOLOGIST INTERPRETATION 2021-10-17 10:28:00 Faraz Parada [facility] PHOSPHORUS 2021-10-17 10:28:00 Samir Galindo [facility] MAGNESIUM 2021-10-17 10:28:00 [facility] BASIC METABOLIC PANEL (NA, K, CL, CO2, GLUCOSE, BUN, CREATININE, CA) 2021-10-17 10:28:00 Josie [facility] SEDIMENTATION RATE 2021-10-17 10:28:00 Faraz Parada [facility] CBC WITH DIFF 2021-10-17 10:28:[address] [facility] ANTI-NUCLEAR ANTIBODY SCREEN 2021-10-17 10:28:00 ParadaFaraz [facility] ANTI-NUCLEAR ANTIBODY TITER 2021-10-17 10:28:00 Parada [facility] ANTI-DOUBLE STRANDED DNA 2021-10-17 10:28:00 Amadou Putnam [facility] HIV 1/2 AG-AB WITH REFLEX 2021-10-17 10:28:00 Abu Anaya Welch [facility] ANTI-NUCLEAR ANTIBODY-PATHOLOGIST INTERPRETATION 2021-10-17 10:28:00 Parada, [facility] BLOOD CULTURE SCREEN 2021-10-16 17:40:00 Yojana Putnam si [facility] BLOOD CULTURE SCREEN 2021-10-16 17:40:00 Yojana Putnam si [facility] XR CHEST 1 VW 2021-10-16 16:56:36 Nicol Bourgeois [facility] XR CHEST 1 VW 2021-10-16 16:56:36 Nicol Bourgeois [facility] RESPIRATORY PANEL BY PCR 2021-10-16 14:46:00 Amadou Putnam [facility] RESPIRATORY PANEL BY PCR 2021-10-16 14:46:00 Amadou Putnam [facility] PHOSPHORUS 2021-10-16 10:47:00 Samir Galindo [facility] MAGNESIUM 2021-10-16 10:47:00 Josie [facility] BASIC METABOLIC PANEL (NA, K, CL, CO2, GLUCOSE, BUN, CREATININE, CA) 2021-10-16 10:47:00 [facility] WITH DIFF 2021-10-16 10:47:00 [facility] AC PANEL 20 + LACTIC ACID 2021-10-16 10:47:00 [facility] 2021-10-16 10:47:00 [facility] 2021-10-16 10:47:00 [facility] BASIC METABOLIC PANEL (NA, K, CL, CO2, GLUCOSE, BUN, CREATININE, CA) 2021-10-16 10:47:00 Josie [facility] CBC WITH DIFF 2021-10-16 10:47:00 Josie [facility] AC PANEL 20 + LACTIC ACID 2021-10-16 10:47:00 Maryan Galindo [facility] C-REACTIVE PROTEIN 2021-10-15 22:38:00 Faraz Parada [facility] TROPONIN I 2021-10-15 22:38:00 [facility] BASIC METABOLIC PANEL (NA, K, CL, CO2, GLUCOSE, BUN, CREATININE, CA) 2021-10-15 22:38:00 Samir Galindo [facility] C-REACTIVE PROTEIN 2021-10-15 22:38:00 Faraz Parada [facility] TROPONIN I 2021-10-15 22:38:00 Blanca Talavera [facility] BASIC METABOLIC PANEL (NA, K, CL, CO2, GLUCOSE, BUN, CREATININE, CA) 2021-10-15 22:38:00 [facility] PNEUMOCOCCAL ANTIGEN 2021-10-15 21:49:00 Josie [facility] PNEUMOCOCCAL ANTIGEN 2021-10-15 21:49:00 Josie [facility] LEGIONELLA URINARY ANTIGEN TST 2021-10-15 21:48:00 Josie [facility] LEGIONELLA URINARY ANTIGEN TST 2021-10-15 21:48:[address] [facility]ST 2021-10-15 19:22:00 Vi Kline [facility] CT ANGIOGRAM CHEST 2021-10-15 19:22:00 Vi Kline [facility] TROPONIN I 2021-10-15 17:29:00 Blanca Talavera [facility] RAPID INFLUENZA A/B 2021-10-15 17:29:00 Vito Bourgeois [facility] N-TERMINAL PRO-BNP 2021-10-15 17:29:00 Jose Bourgeois lindsay [facility] PROCALCITONIN 2021-10-15 17:29:00 Nicol Bourgeois [facility] COVID-19 (MOLECULAR TESTING NUCLEIC ACID AMPLIFICATION) 2021-10-15 17:29:00 Nicol Bourgeois [facility] LAB ONLY COVID INTERPRETATION 2021-10-15 17:29:00 Nicol Bourgeois [facility] TROPONIN I 2021-10-15 17:29:00 Blanca Talavera [facility] RAPID INFLUENZA A/B 2021-10-15 17:29:00 Vito Bourgeois [facility] N-TERMINAL PRO-BNP 2021-10-15 17:29:00 Jose Bourgeois hklindsay [facility] PROCALCITONIN 2021-10-15 17:29:00 Nicol Bourgeois [facility] COVID-19 (MOLECULAR TESTING NUCLEIC ACID AMPLIFICATION) 2021-10-15 17:29:00 Nicol Bourgeois [facility] LAB ONLY COVID INTERPRETATION 2021-10-15 17:29:00 Nicol Bourgeois [facility] COVID-19 (ID NOW RAPID TESTING) 2021-10-15 13:03:00 Samir Galindo [facility] LAB ONLY COVID INTERPRETATION 2021-10-15 13:03:00 [facility] (ID NOW RAPID TESTING) 2021-10-15 13:03:00 [facility] COVID INTERPRETATION 2021-10-15 13:03:00 [facility] X[facility]ST 1 VW 2021-10-15 09:46:38 Blanca Talavera [facility] XR CHEST 1 VW 2021-10-15 09:46:38 Blanca Talavera [facility] MAGNESIUM 2021-10-15 08:16:00 Samir Galindo [facility] BASIC METABOLIC PANEL (NA, K, CL, CO2, GLUCOSE, BUN, CREATININE, CA) 2021-10-15 08:16:00 [facility] PROCALCIT[facility]IN 2021-10-15 08:16:00 Blanca Talavera [facility] MAGNESIUM 2021-10-15 08:16:00 Samir Galindo [facility] BASIC METABOLIC PANEL (NA, K, CL, CO2, GLUCOSE, BUN, CREATININE, CA) 2021-10-15 08:16:00 Josie [facility] PROCALCITONIN 2021-10-15 08:16:00 Ilan, [facility] ABG+COOX+NA+K+GLU+CA2+ 2021-10-15 07:24:00 [facility]OOX+NA+K+GLU+CA2+ 2021-10-15 07:24:00 [facility]OP[facility] 2021-10-15 07:10:00 [facility] WITH DIFF 2021-10-15 07:10:[address] [facility] TROPONIN I 2021-10-15 07:10:00 Ilan [facility] CBC WITH DIFF 2021-10-15 07:10:[address] [facility] MRSA / MSSA SCREEN BY PCR, LUKAS 2021-10-15 07:09:00 Josie [facility] MRSA / MSSA SCREEN BY PCR, LUKAS 2021-10-15 07:09:00 Josie Samir [facility] AUTHORIZATION FOR RELEASE OF PHI 2021-06-09 05:01:00 Doctor Unassigned, [place] [facility] Plan of Care Planned Activity Planned Date Details Comments Source Goal Plan of Care Note [code = 95658-6] Goal Plan of Care Note [code = 20565-3] Goal Plan of Care Note [code = 47748-4] Goal Plan of Care Note [code = 91111-0] Goal Plan of Care Note [code = 89431-2] Goal Plan of Care Note [code = 21268-6] Goal Plan of Care Note [code = 18501-5] Goal Plan of Care Note [code = 81899-6] Goal Plan of Care Note [code = 90237-8] Goal Plan of Care Note [code = 09887-0] Goal Plan of Care Note [code = 54047-2] Goal Plan of Care Note [code = 20464-6] Goal Plan of Care Note [code = 38960-2] Goal Plan of Care Note [code = 03472-3] Goal Plan of Care Note [code = 82558-0] Goal Plan of Care Note [code = 05040-0] Goal Plan of Care Note [code = 96837-3] Goal Plan of Care Note [code = 48584-3] Goal Plan of Care Note [code = 35382-3] Goal Plan of Care Note [code = 60877-9] Goal Plan of Care Note [code = 09835-9] Goal Plan of Care Note [code = 23294-4] Goal Plan of Care Note [code = 58159-6] Goal Plan of Care Note [code = 99887-7] Goal Plan of Care Note [code = 94779-3] Goal Plan of Care Note [code = 20720-3] Goal Plan of Care Note [code = 10301-2] Goal Plan of Care Note [code = 91609-7] Goal Plan of Care Note [code = 19205-9] Goal Plan of Care Note [code = 40472-0] Goal Plan of Care Note [code = 50052-4] Goal Plan of Care Note [code = 11682-2] Goal Plan of Care Note [code = 27369-8] Goal Plan of Care Note [code = 48771-8] Goal Plan of Care Note [code = 10980-3] Goal Plan of Care Note [code = 35220-0] Goal Plan of Care Note [code = 66995-3] Goal Plan of Care Note [code = 70727-5] Goal Plan of Care Note [code = 40792-6] Goal Plan of Care Note [code = 89766-4] Goal Plan of Care Note [code = 32766-9] Goal Plan of Care Note [code = 78811-7] Goal Plan of Care Note [code = 99761-2] Goal Plan of Care Note [code = 71525-0] Goal Plan of Care Note [code = 81321-6] Goal Plan of Care Note [code = 96587-8] Goal Plan of Care Note [code = 57173-6] Goal Plan of Care Note [code = 57161-1] Goal Plan of Care Note [code = 57545-6] Goal Plan of Care Note [code = 12166-7] Goal Plan of Care Note [code = 27713-0] Goal Plan of Care Note [code = 92927-2] Goal Plan of Care Note [code = 75320-2] Goal Plan of Care Note [code = 60314-6] Goal Plan of Care Note [code = 33123-7] Goal Plan of Care Note [code = 90634-1] Goal Plan of Care Note [code = 69919-3] Goal Plan of Care Note [code = 82487-9] Goal Plan of Care Note [code = 59663-6] Goal Plan of Care Note [code = 00632-1] Goal Plan of Care Note [code = 32825-2] Goal Plan of Care Note [code = 22651-7] Goal Plan of Care Note [code = 87590-6] Goal Plan of Care Note [code = 41759-6] Goal Plan of Care Note [code = 12158-4] Goal Plan of Care Note [code = 56624-4] Goal Plan of Care Note [code = 40222-2] Goal Plan of Care Note [code = 23338-8] Goal Plan of Care Note [code = 41570-1] Goal Plan of Care Note [code = 11698-4] Goal Plan of Care Note [code = 07571-6] Goal Plan of Care Note [code = 17257-6] Goal Plan of Care Note [code = 22613-1] Goal Plan of Care Note [code = 11829-3] Goal Plan of Care Note [code = 06219-4] Goal Plan of Care Note [code = 66215-3] Goal Plan of Care Note [code = 48061-6] Goal Plan of Care Note [code = 44278-7] Goal Plan of Care Note [code = 24567-0] Goal Plan of Care Note [code = 20264-8] Goal Plan of Care Note [code = 30092-8] Goal Plan of Care Note [code = 78303-4] Goal Plan of Care Note [code = 17315-2] Goal Plan of Care Note [code = 52939-0] Goal Plan of Care Note [code = 95838-7] Goal Plan of Care Note [code = 37909-1] Goal Plan of Care Note [code = 22195-0] Goal Plan of Care Note [code = 82502-4] Goal Plan of Care Note [code = 30898-7] Goal Plan of Care Note [code = 12828-5] Goal Plan of Care Note [code = 52918-8] Goal Plan of Care Note [code = 13537-2] Goal Plan of Care Note [code = 87042-8] Goal Plan of Care Note [code = 70613-6] Encounters Start Date/Time End Date/Time Encounter Type Admission Type Attending [facility] Care Department Encounter ID Source 2024-09-10 14:19:39 2024-09-10 14:19:39 Outpatient [facility] [id number] Dwayne Myers 2024-07-08 14:30:21 2024-07-08 14:30:21 Outpatient [facility] [id number] Dwayne Myers 2024-07-08 00:00:00 2024-07-08 00:00:00 Outpatient Visit [facility] [id number] Dwayne Myers 2024-07-07 19:36:00 2024-07-07 23:16:00 Emergency X UMM MANZANARES NADIM INJS ERT [id number] [facility] 2024-07-07 19:36:00 2024-07-07 23:16:00 Emergency Umm Manzanares [facility] 1.2.840.114 350.1.13.10 4.2.7.2.686 [id number] [facility] 2024-06-30 15:05:17 2024-06-30 15:05:17 Outpatient [facility] [id number] Dwayne Myers 2024-06-27 14:15:46 2024-06-27 14:15:46 Outpatient [facility] [id number] Dwayne Bah [place] 2024-06-26 15:49:57 2024-06-26 15:49:57 Outpatient [facility] 1024 Dwayne Myers 2024-06-26 00:00:00 2024-06-26 00:00:00 Outpatient Visit [facility] [id number] Dwayne Myers 2024-06-19 06:47:00 2024-06-19 10:00:00 Outpatient LINDSEY PADILLA [facility] [id number] [facility] 2024-06-19 06:47:00 2024-06-19 06:47:00 Outpatient LINDSEY PADILLA [facility] [id number] [facility] 2024-06-05 06:45:00 2024-06-05 09:25:00 Outpatient LINDSEY PADILLA [facility] [id number] [facility] 2024-06-05 06:45:00 2024-06-05 09:25:00 Outpatient LINDSEY PADILLA [facility] [id number] [facility] 2024-05-13 17:15:56 2024-05-13 17:15:56 Outpatient SFA [facility] 0910 Dwayne Myers 2024-05-13 00:00:00 2024-05-13 00:00:00 Outpatient Visit [facility] [id number] Dwayne Myers 2024-04-16 11:29:46 2024-04-16 11:29:46 Outpatient SFA [facility] 14 Dwayne Myers 2024-04-16 00:00:00 2024-04-16 00:00:00 Outpatient Visit [facility] [id number] Dwayne Myers 2024-04-15 11:08:26 2024-04-15 11:08:26 Outpatient SFA [facility] 812 Dwayne Myers 2024-04-15 00:00:00 2024-04-15 00:00:00 Outpatient Visit [facility] [id number] Dwayne Myers 2024-04-10 15:16:22 2024-04-10 15:16:22 Outpatient SFA SFA 08 Dwayne Myers 2024-04-08 11:32:44 2024-04-08 11:32:44 Outpatient SFA [facility] 805 Dwayne Myers 2024-04-08 00:00:00 2024-04-08 00:00:00 Outpatient Visit [facility] [id number] Dwayne Myers 2024-04-01 10:49:16 2024-04-01 10:49:16 Outpatient [facility] [id number] Dwayne Myers 2024-03-31 16:14:36 2024-03-31 16:14:36 Outpatient SFA [facility] 728 Dwayne Myers 2024-03-31 00:00:00 2024-03-31 00:00:00 Outpatient Visit [facility] [id number] Dwayne Myers 2024-03-22 17:10:00 2024-03-22 20:43:00 Emergency X JIMY CAMERON MICHELLE [facility] ERT [id number] [facility] 2024-03-22 17:10:00 2024-03-22 20:43:00 Emergency Jimy Cameron [facility] 1.2.840.114 350.1.13.10 4.2.7.2.686 [id number] [facility] 2024-03-22 06:36:00 2024-03-22 09:36:00 Emergency MK BARRIENTOS ANDRES [facility] ERT [id number] [facility] 2024-03-22 06:36:00 2024-03-22 09:36:00 Emergency Gabriel Garcia Andres [facility] 1.2.840.114 350.1.13.10 4.2.7.2.686 [id number] [facility] 2024-01-18 13:20:00 2024-01-18 13:20:00 Outpatient AMI LEI [facility] [id number] [facility] 2024-01-16 09:00:00 2024-01-16 09:45:34 Outpatient R AMI RUSH [facility] [id number] [facility] 2024-01-16 09:00:00 2024-01-16 09:45:34 Office [facility]ival [facility] 1.2.840.114 350.1.13.10 4.2.7.2.686 [id number] [facility] 2024-01-16 00:00:00 2024-01-16 00:00:00 Telephone Anival Rushsalomon [facility] 1.2.840.114 350.1.13.10 4.2.7.2.686 [id number] [facility] 2024-01-08 09:53:36 2024-01-08 09:53:36 Outpatient SFA [facility] [address] Dway[address] Bah [place] 2024-01-07 15:46:41 2024-01-07 15:46:41 Outpatient SFA [facility] 505 Dwayne Bah [place] 2024-01-03 13:52:03 2024-01-03 13:52:03 Outpatient SFA [facility] 501 Dwayne Bah [place] 2024-01-03 00:00:00 2024-01-03 00:00:00 Outpatient Visit SFA [id number] Dwayne Bah [place] 2023-12-31 13:25:23 2023-12-31 13:25:23 Outpatient SFA [facility] [id number] Dwayne Bah [place] 2023-12-31 00:00:00 2023-12-31 00:00:00 Outpatient Visit SFA [id number] Dwayne Bah [place] 2023-12-10 15:24:04 2023-12-10 15:24:04 Outpatient SFA [facility] 8 Dwayne Bah [place] 2023-10-12 19:30:00 2023-10-12 23:58:00 [facility] ERT [id number] [facility] 2023-10-12 19:30:00 2023-10-12 23:58:00 Emergency Kavitha Shipley [facility] 1.2.840.114 350.1.13.10 4.2.7.2.686 [id number] [facility] 2023-09-25 08:35:13 2023-09-25 08:35:13 Outpatient SFA [facility] [id number] Dwayne Myers 2023-08-23 14:14:42 2023-08-23 14:14:42 Outpatient SFA [facility] [id number] Dwayne Myers 2023-08-23 00:00:00 2023-08-23 00:00:00 Orders Only Doctor Unassigned, [place] [facility] 1.2.840.114 350.1.13.10 4.2.7.2.686 [id number] [facility] 2023-07-30 11:27:18 2023-07-30 11:27:18 Outpatient SFA [facility] [id number] D[address]ne Bah [place] 2023-07-23 13:48:13 2023-07-23 13:48:13 Outpatient [facility] [id number] Dwayne Myers 2023-07-10 14:42:08 2023-07-10 14:42:08 Outpatient [facility] 1107 Dwayne Bah [place] 2023-07-04 00:00:00 2023-07-04 00:00:00 Outpatient GC_GCBZW_Ka staceya_S [facility] [id number] [facility] 2023-06-26 11:04:41 2023-06-26 11:04:41 Outpatient SFA [facility] 1024 Dwayne Bah [place] 2023-06-12 14:49:18 2023-06-12 14:49:18 Outpatient SFA [facility] [id number] Dwayne Myers 2023-06-03 21:46:00 2023-06-03 23:33:00 Emergency E ALIRIO, COLLETTE ALIRIO, COLLETTE [facility] [id number] [facility] 2023-06-03 21:46:00 2023-06-03 23:33:00 Emergency E ALIRIO, COLLETTE ALIRIO, COLLE[place]E [facility] [id number] [facility] 2023-05-30 10:27:39 2023-05-30 10:27:39 Outpatient SFA [facility] 0927 Dwayne Myers 2023-05-04 14:49:00 2023-05-04 16:40:00 Emergency E MANAN WONG MARY [facility] [id number] [facility] 2023-05-03 10:11:47 2023-05-03 10:11:47 Outpatient SFA [facility] [id number] Dwayne Myers 2023-04-30 08:40:38 2023-04-30 08:40:38 Outpatient SFA [facility] 0828 Dwayne Myers 2023-04-26 14:46:53 2023-04-26 14:46:53 Outpatient SFA [facility] 0824 Dwayne Myers 2023-04-24 08:12:09 2023-04-24 08:12:09 Outpatient SFA S[facility] 0822 Dwayne Myers 2023-04-14 21:33:00 2023-04-15 05:47:00 Emergency E MATIAS LEGGETTBO [facility] [id number] [facility] 2023-03-19 10:19:29 2023-03-19 10:19:29 Outpatient SFA SFA [id number] Dwayne Myers 2023-02-19 09:15:24 2023-02-19 09:15:24 Outpatient SFA [facility] [id number] Dwayne Myers 2023-02-08 07:25:00 2023-02-08 11:19:00 Outpatient LINDSEY PADILLA [facility] [id number] [facility] 2022-12-25 15:45:30 2022-12-25 15:45:30 Outpatient [facility] [id number] Dwayne Myers 2022-12-25 00:00:00 2022-12-25 00:00:00 Orders Only Doctor Unassigned, [place] [facility] 1.2.840.114 350.1.13.10 4.2.7.2.686 [id number] [facility] 2022-12-21 13:08:22 2022-12-21 13:08:22 Outpatient [facility] [id number] Dwayne Myers 2022-12-19 09:43:00 2022-12-19 09:43:00 Outpatient [facility] [id number] Dwayne Myers 2022-12-11 20:12:00 2022-12-11 22:35:00 Emergency E LÁZARO [facility] [id number] [facility] 2022-12-10 19:03:00 2022-12-10 20:52:00 Emergency X OREN TOVAR [facility] ERT [id number] [facility] 2022-12-10 19:03:00 2022-12-10 20:52:00 Emergency Oren Tovar [facility] 1..840.114 350.1.13.10 4.2.7.2.686 [id number] [facility] 2022-11-23 09:56:39 2022-11-23 09:56:39 Outpatient [facility] 3 Dwayne Myers 2022-11-22 00:00:00 2022-11-22 00:00:00 Orders Only Doctor Unassigned, [place] [facility] 1.2840.114 350.1.13.10 4.2.7.2.686 [id number] [facility] 2022-11-21 08:34:36 2022-11-21 08:34:36 Outpatient [facility] [id number] Dwayne Myers 2022-11-04 21:58:00 2022-11-05 17:13:00 Outpatient Gabby OLESN [facility] [id number] [facility] 2022-11-04 21:58:00 2022-11-05 17:13:00 [facility] 1.2.840.114 350.1.13.10 4.2.7.2.686 [id number] [facility] 2022-10-02 10:16:38 2022-10-02 10:16:38 Outpatient SFA [facility] 129 Dwayne Myers 2022-09-25 10:41:57 2022-09-25 10:41:57 Outpatient SFA [facility] 3 Dwayne Myers 2022-09-25 00:00:00 2022-09-25 00:00:00 Outpatient Visit [id number] 2022-09-22 10:48:03 2022-09-22 10:48:03 Outpatient SFA [facility] 0 Dwayne Myers 2022-09-21 15:48:42 2022-09-21 15:48:42 Outpatient SFA [facility] 0119 Dwayne Bah Louis 2022-09-21 00:00:00 2022-09-21 00:00:00 Outpatient Visit [id number]-[id number] -[id number] [id number]-[id number] [id number] 8fcacd 2022-08-17 10:58:00 2022-08-17 13:20:00 Outpatient LINDSEY PADILLA [facility] [id number] [facility] 2022-08-11 11:20:53 2022-08-11 11:20:53 Outpatient SFA [facility] 1209 Dwayneomayra Myers 2022-08-11 00:00:00 2022-08-11 00:00:00 Outpatient Visit [id number] -[id number] [id number]-47ad-a [id number] 2022-07-25 19:54:00 2022-07-27 14:01:00 [facility] [id number] [facility] 2022-07-25 19:54:00 2022-07-27 14:01:00 Emergency Mormonism, Umm Hernández, Ced [facility] ([facility]) 1.2.840.114 350.1.13.10 4.2.7.2.686 [id number] [facility] 2022-07-20 13:25:00 2022-07-20 16:55:00 Outpatient LINDSEY PADILLA [facility] [id number] [facility] 2022-06-24 19:56:00 2022-06-26 05:00:00 Inpatient X [facility] [id number] [facility] 2022-06-24 19:56:00 2022-06-26 05:00:00 Hospital Encounter Jaden Siddiqui [facility] ([facility]) 1.2.840.114 350.1.13.10 4.2.7.2.686 [id number] [facility] 2022-06-23 18:38:00 2022-06-23 23:25:00 Emergency E LORAINE MELO [facility] [id number] [facility] 2022-06-21 23:43:00 2022-06-22 10:50:00 Outpatient E CHRISTIAN VITAL [facility] TELE [id number] [facility] 2022-06-15 11:12:00 2022-06-15 15:38:00 Outpatient Jonh LINDSEY CAMERON [facility] [id number] [facility] 2022-06-08 00:00:00 2022-06-08 00:00:00 Orders Only Doctor Unassigned, [place] [facility] 1.2.840.114 350.1.13.10 4.2.7.2.686 [id number] [facility] 2022-05-31 20:15:00 2022-05-31 22:49:00 Emergency X GABRIEL GARCIA [facility] ERT [id number] [facility] 2022-05-31 20:15:00 2022-05-31 22:49:00 Emergency Gabriel Gacria J [facility] 1.2.840.114 350.1.13.10 4.2.7.2.686 [id number] [facility] 2022-05-11 11:42:00 2022-05-11 23:59:00 Outpatient Jonh WOODSONIGNACIO LINDSEY [facility] [id number] [facility] 2022-04-17 20:00:00 2022-04-17 20:00:00 Outpatient R WILMAR MAD[place] STRAHIL [facility] [id number] [facility] 2022-04-15 08:00:00 2022-04-15 08:00:00 Outpatient R [facility] [id number] [facility] 2022-04-15 00:00:00 2022-04-15 00:00:00 Outpatient Visit [id number] -[id number] 1612-08-04 12:15:00 2022-04-06 16:00:00 Outpatient Jonh CAMERON LINDSEY [facility] [id number] [facility] 2022-03-15 20:00:00 2022-03-15 22:30:00 Mailing Specialist Visit 1, [facility] Sleep Lab Bed Wilmar Madison [facility] 1.840.114 350.1.13.10 4.2.7.2.686 [id number] [facility] 2022-03-15 20:00:00 2022-03-15 20:00:00 Outpatient R WILMAR [place] [facility] [id number] [facility] 2022-03-14 15:30:00 2022-03-14 15:45:00 Laboratory Only Only, [facility] Test Wilmar Madison [facility] 1.840.114 350.1.13.10 4.2.7.2.686 [id number] [facility] 2022-03-14 15:30:00 2022-03-14 15:30:00 Outpatient R WILMAR [place], [facility] [id number] [facility] 2022-03-14 00:00:00 2022-03-14 00:00:00 Orders Only Doctor Unassigned, [place] [facility] 1.840.114 350.1.13.10 4.2.7.2.686 [id number] [facility] 2022-02-25 18:18:00 2022-02-26 12:30:00 Outpatient X [facility] [id number] [facility] 2022-02-25 18:18:00 2022-02-26 12:30:00 [facility] ([facility] 1.2840.114 350.1.13.10 4.2.7.2.686 [id number] [facility] 2022-02-22 21:42:00 2022-02-23 01:19:00 Emergency X BRO ANN [facility] ERT [id number] [facility] 2022-02-22 21:42:00 2022-02-23 01:19:00 Emergency Bro Ann [facility] 1.2.840.114 350.1.13.10 4.2.7.2.686 [id number] [facility] 2022-01-29 14:38:00 2022-01-29 16:55:00 Emergency X JADEN SIDDIQUI [facility] ERT [id number] [facility] 2022-01-29 14:38:00 2022-01-29 16:55:00 Emergency Jaden Siddiqui [facility] ([facility] 1.2.840.114 350.1.13.10 4.2.7.2.686 [id number] [facility] 2022-01-29 07:51:00 2022-01-29 10:37:00 Emergency X MAI DEL ROSARIO [facility] ERT [id number] [facility] 2022-01-29 07:51:00 2022-01-29 10:37:00 Emergency Mai Del Rosario [facility] 1.2.840.114 350.1.13.10 4.2.7.2.686 [id number] [facility] 2022-01-05 10:46:00 2022-01-05 14:42:00 Outpatient LINDSEY PADILLA [facility] [id number] [facility] 2022-01-02 21:43:00 2022-01-03 00:14:00 Emergency X JACKLYN GUILLEN [facility] ERT [id number] [facility] 2022-01-02 21:43:00 2022-01-03 00:14:00 Emergency Jacklyn Guillen [facility] 1.2840.114 350.1.13.10 4.2.7.2.686 [id number] [facility] 2021-12-08 00:00:00 2021-12-08 00:00:00 Transition of Care HeartMarjan 1.114 350.1.13.10 4.2.7.2.686 [id number] [facility] 2021-12-05 17:33:00 2021-12-07 12:01:00 Inpatient X [facility] [id number] [facility] 2021-12-05 17:33:00 2021-12-07 12:01:00 Hospital Encounter Oren Tovar Wakili S [facility] 1.114 350.1.13.10 4.2.7.2.686 [id number] [facility] 2021-12-03 12:50:00 2021-12-05 05:42:00 Outpatient X DEWEYTANVIR [facility] [id number] [facility] 2021-12-03 12:50:00 2021-12-05 05:42:00 Hospital Encounter GonsaloMaury Jonh Hathaway [facility] ([facility]) .114 350.1.13.10 4.2.7.2.686 [id number] [facility] 2021-11-23 00:00:00 2021-11-23 00:00:00 Orders Only Doctor Unassigned, [place] [facility] 1.114 350.1.13.10 4.2.7.2.686 [id number] [facility] 2021-11-15 00:00:00 2021-11-15 00:00:00 Edelmira Leblanc [facility] ([facility]) 1.2.840.114 350.1.13.10 4.2.7.2.686 [id number] [facility] 2021-11-09 18:47:00 2021-11-11 17:31:00 Outpatient X MICHEL [facility] [id number] [facility] 2021-11-09 18:47:00 2021-11-11 17:31:00 Emergency [facility]y [facility] 1..114 350.1.13.10 4.2.7.2.686 [id number] [facility] 2021-11-07 00:00:00 2021-11-07 00:00:00 Orders Only Doctor Unassigned, [place] [facility] 1..114 350.1.13.10 4.2.7.2.686 [id number] [facility] 2021-11-03 00:00:00 2021-11-03 00:00:00 Orders Only Doctor Unassigned, [place] [facility] 1.2.114 350.1.13.10 4.2.7.2.686 [id number] [facility] 2021-10-25 00:00:00 2021-10-25 00:00:00 Transition of Care [place] 1..114 350.1.13.10 4.2.7.2.686 [id number] [facility] 2021-10-15 00:23:00 2021-10-24 17:53:00 Inpatient U REHANA [facility] [id number] [facility] 2021-10-15 00:23:00 2021-10-24 17:53:00 Hospital Encounter Blanca Talavera, Faraz Guadarrama [facility] ([facility]) 1.2.840.114 350.1.13.10 4.2.7.2.686 [id number] [facility] 2021-10-21 10:00:00 2021-10-21 10:45:00 Surgery Michael Sharma Anaya [facility] ([facility]) 1.2.840.114 350.1.13.10 4.2.7.2.686 [id number] [facility] 2021-06-09 00:00:00 2021-06-09 00:00:00 Orders Only Doctor Unassigned, [place] [facility] 1.2.840.114 350.1.13.10 4.2.7.2.686 [id number] [facility] 2012-11-25 00:00:00 2012-11-25 16:37:20 Outpatient GABRIEL SHAIKH BRENT [facility] [id number] [facility] 2012-04-08 00:00:00 2012-04-08 16:51:12 Outpatient [facility] [id number] [facility] 2011-04-13 00:00:00 2011-04-13 10:43:11 Outpatient [facility] [id number] [facility] 2010-09-15 00:00:00 2010-09-15 11:23:44 Outpatient [facility] [id number] [facility] 2010-03-11 00:00:00 2010-03-11 16:25:54 Outpatient [facility] [id number] [facility] 2009-09-13 00:00:00 2009-09-13 16:22:48 Outpatient [facility] [id number] [facility] 2009-08-31 00:00:00 2009-08-31 09:36:31 Outpatient [facility] [id number] [facility] Results Test Description Test Time Test Comments Results Result Co mments Source [facility] (68010)2024-07-08 02:38:26* Test Item Value Reference Range Interpretation Comme nts NA (test code = 9627639729) 138 mmol/L 135-145 K (test code = 1563638663) 4.3 mmol/L 3.5-5.0 CL (test code = 8869072897) 107 mmol/L 98-108 CO2 TOTAL (test code = 5278240754) 25 mmol/L 23-31 AGAP (test code = 3363950561) 6 2-16 BUN (test code = 8997988583) 11 mg/dL 7-23 GLUCOSE (test code = 3792755766) 108 mg/dL 70-110 CREATININE (test code = 2160-0) 0.94 mg/dL 0.50-1.04 TOTAL BILI (test code = 6982240759) 0.5 mg/dL 0.1-1.1 CALCIUM (test code = 9512528210) 8.9 mg/dL 8.6-10.6 T PROTEIN (test code = 9883505792) 7.8 g/dL 6.3-8.2 ALBUMIN (test code = 4502739405) 4.7 g/dL 3.5-5.0 ALK PHOS (test code = 4088223919) 125 U/L 34-122 H ALTv (test code = 1742-6) 29 U/L 5-35 AST(SGOT) (test code = 9704867762) 34 U/L 13-40 eGFR (test code = 71052-2) 72.7 mL/min/1.73m2 CKD-EPI eGFR (2020). Assuming creatinine has been stable day-to-day for at least three months, the eGFR indicates Category G2 (60 - 89 mL/min/1.73 m2) Lab Interpretation (test code = 81366-1) Abnormal [facility] WITH [id number] 02:18:26* Test Item Value Reference Range Interpretation Comme nts WBC (test code = 6690-2) 5.81 4.30-11.10 RBC (test code = 789-8) 4.81 3.93-5.25 HGB (test code = 718-7) 12.6 g/dL 11.6-15.0 HCT (test code = 4544-3) 39.2 % 35.7-45.2 MCV (test code = 787-2) 81.5 fL 80.6-95.5 MCH (test code = 785-6) 26.2 pg 25.9-32.8 MCHC (test code = 786-4) 32.1 g/dL 31.6-35.1 RDW-SD (test code = 01998-6) 52.9 fL 39.0-49.9 H RDW-CV (test code = 788-0) 17.7 % 12.0-15.5 H PLT (test code = 777-3) 334 166-358 MPV (test code = 17191-3) 10.9 fL 9.5-12.9 NRBC/100 WBC (test code = 1756714784) 0.0 0.0-10.0 NRBC x10^3 (test code = 0249148422) See_Comment [Automated messa ge] The system which generated this result transmitted reference range: 10*3/?L. The reference range was not used to interpret this result as normal/abnormal. GRAN MAT (NEUT) % (test code = 770-8) 45.5 % IMM GRAN % (test code = 0869174793) 0.30 % LYMPH % (test code = 736-9) 41.5 % MONO % (test code = 5905-5) 9.3 % EOS % (test code = 713-8) 1.9 % BASO % (test code = 706-2) 1.5 % GRAN MAT x10^3(ANC) (test code = 4339305486) 2.64 10*3/uL 1.88-7.09 IMM GRAN x10^3 (test code = 5080406300) 0.00-0.06 LYMPH x10^3 (test code = 731-0) 2.41 10*3/uL 1.32-3.29 MONO x10^3 (test code = 742-7) 0.54 10*3/uL 0.33-0.92 EOS x10^3 (test code = 711-2) 0.11 10*3/uL 0.03-0.39 BASO x10^3 (test code = 704-7) 0.09 10*3/uL 0.01-0.07 H Lab Interpretation (test code = 57459-7) Abnormal [facility], [id number] 08:02:48SPECIMEN NUMBER: [id number] CULTURE, URINE SPECIMEN NUMBER: [id number] SOURCE: URINE REPORT STATUS: FINAL FINAL REPORT: 07/02/2024 <10,000 CFU/ML UROGENITAL GEMA PRESENT NO COMMON PATHOGENS UNLESS OTHERWISE INDICATED, ALL TESTING PERFORMED AT [facility] [address] [place] [address] INKER MACHINE: BO MILLER M.D. CLIA NUMBER [id number] [place]. [id number], [id number] 00:00:00* Test Item Value Reference Range Interpretation Comme nts CULTURE, URINE (test code = 44823) SPECIMEN NUMBER: [id number] Dwayne MyersHEMOGLOBIN [id number] 00:00:00* Test Item Value Reference Range Interpretation Comme vivek HEMOGLOBIN A1c (test code = 98083) 6.4 % Dwayne MyersCOMPREHENSIVE METABOLIC [id number] 00:00:00* Test Item Value Reference Range Interpretation Comme nts GLUCOSE (test code = 2217) 95 MG/DL BUN (test code = 2208) 10 MG/DL CREATININE (test code = 2214) 1.09 MG/DL eGFR (2020 CKD-EPI) (test co de = 58716) 61 ML/MIN/1.73 CALC BUN/CREAT (test code = 2235) 9 RATIO SODIUM (test code = 2231) 140 MEQ/L POTASSIUM (test code = 2228) 4.1 MEQ/L CHLORIDE (test code = 2215) 105 MEQ/L CARBON DIOXIDE (test code = 2206) 22 MEQ/L CALCIUM (test code = 2209) 9.2 MG/DL PROTEIN, TOTAL (test code = 2229) 5.9 G/DL ALBUMIN (test code = 2201) 4.0 G/DL CALC GLOBULIN (test code = 2240) 1.9 G/DL CALC A/G RATIO (test code = 2234) 2.1 RATIO BILIRUBIN, TOTAL (test code = 2207) <0.2 MG/DL ALKALINE PHOSPHATASE (test code = 2204) 157 U/L AST (test code = 2218) 15 U/L ALT (test code = 2219) 24 U/L Dwayne MyersLIPID [id number] 00:00:00* Test Item Value Reference Range Interpretation Comme nts CHOLESTEROL (test code = 2210) 241 MG/DL TRIGLYCERIDES (test code = 2232) 405 MG/DL HDL CHOLESTEROL (test code = 2220) 54 MG/DL CALC LDL CHOL (test code = 2237) (NOTE) MG/DL RISK RATIO LDL/HDL (test cod e = 2238) (NOTE) RATIO Dwayne Bah AustinH. PYLORI (BREATH)2024-04-21 00:00:00* Test Item Value Reference Range Interpretation Comme nts H. PYLORI (BREATH) (test cod e = 30967) NEGATIVE Dwayne Bah AustinH. PYLORI (BREATH)2024-04-21 00:00:00* Test Item Value Reference Range Interpretation Comme nts H. PYLORI (BREATH) (test cod e = 18655) NEGATIVE Dwayne Bah AustinH. PYLORI (BREATH)2024-04-21 00:00:00* Test Item Value Reference Range Interpretation Comme nts H. PYLORI (BREATH) (test cod e = 18658) NEGATIVE Dwayne MyersCULTURE, [id number] 00:00:00* Test Item Value Reference Range Interpretation Comme nts CULTURE, URINE (test code = 66108) SPECIMEN NUMBER: [id number] Dwayne MyersCULTURE, [id number] 00:00:00* Test Item Value Reference Range Interpretation Comme nts CULTURE, URINE (test code = 14066) SPECIMEN NUMBER: [id number] Dwayne MyersCULTURE, [id number] 00:00:00* Test Item Value Reference Range Interpretation Comme nts CULTURE, URINE (test code = 87529) SPECIMEN NUMBER: [id number] Dwayne MyersPAP TEST, THINPREP, [id number] 17:20:29* Test Item Value Reference Range Interpretation Comme nts SOURCE: (test code = 8001) Cervical/Endoce rvical SLIDES: (test code = 8011) 1 LMP: (test code = 8021) NOT GIVEN SPECIMEN ADEQUACY: (test code = 22974) (NOTE) Satisfactory for evaluation. Endocervical cells/transformation zone component not identified. INTERPRETATION: (test code = 45919) NILM/NO EPITH. ABNORMALITY;SEE BELOW --- - NEGATIVE FOR INTRAEPITHELIAL LESION OR MALIGNANCY (NILM) ---- OTHER COMMENTS: (test code = 8081) (NOTE) Fungal organisms consistent with Deb present. DIRECTOR TELEVISION NEWS : (test code = 8101) Mala Hernandez LOCATION: (test code = 90653) (NOTE) Specim[facility] proces sed [facility], [address] [place] [address], , CLIA: [id number] CPT: (test code = 8140) 36249 UNLESS OTHERWISE INDICATED, COMPUTER AIDED AND DIRECTOR TELEVISION NEWS SCREENING PERFORMED. The Pap test is a [...] TESTING PERFORMED AT [facility] [address] [place] [address] INKER MACHINE: BO MILLER M.D. CLIA NUMBER [id number] [facility] [place]. [id number] VAGINAL PATHOGENS DNA [id number] 13:50:10* Test Item Value Reference Range Interpretation Comme nts DEB SPECIES (test code = 15517) POSITIVE NEGATIVE A G. VAGINALIS (test code = ) NEGATIVE NEGATIVE T. VAGINALIS (test code = 34027) NEGATIVE NEGATIVE Note: The BD [facility] VPIII Microbial Identification Testis a DNA probe test intended for use in the detectionand identification of Deb species, Gardnerellavaginalis and Trichomonas vaginalis nucleic acid. UNLESS OTHERWISE INDICATED, ALL TESTING PERFORMED AT [facility] [address] [place] [address] INKER MACHINE: BO MILLER M.D. [place] NUMBER [id number] [facility] [place]. [id number] VAGINAL PATHOGENS DNA [id number] 00:00:00* Test Item Value Reference Range Interpretation Comme nts DEB SPECIES (test code = ) POSITIVE G. VAGINALIS (test code = ) NEGATIVE T. VAGINALIS (test code = ) NEGATIVE Dwayne MyersPAP TEST, THINPREP, [id number] 00:00:00* Test Item Value Reference Range Interpretation Comme nts SOURCE: (test code = 8001) Cervical/Endocervical SLIDES: (test code = 8011) 1 LMP: (test code = 8021) NOT GIVEN SPECIMEN ADEQUACY: (test code = 83460) (NOTE) INTERPRETATION: (test code = 76840) NILM/NO EPITH. ABNORMALITY;SEE BELOW OTHER COMMENTS: (test code = 8081) (NOTE) DIRECTOR TELEVISION NEWS: (test code = 8101) Mala Hernandez LOCATION: (test code = 55013) (NOTE) CPT: (test code = 8140) 69592 PDFE (test code = PDFReport) PDF Dwayne MyersPAP TEST, THINPREP, [id number] 00:00:00* Test Item Value Reference Range Interpretation Comme nts SOURCE: (test code = 8001) Cervical/Endocervical SLIDES: (test code = 8011) 1 LMP: (test code = 8021) NOT GIVEN SPECIMEN ADEQUACY: (test code = 95976) (NOTE) INTERPRETATION: (test code = 95239) NILM/NO EPITH. ABNORMALITY;SEE BELOW OTHER COMMENTS: (test code = 8081) (NOTE) DIRECTOR TELEVISION NEWS: (test code = 8101) Mala Hernandez LOCATION: (test code = 36279) (NOTE) CPT: (test code = 8140) 87464 PDFE (test code = PDFReport) PDF Dwayne F AustinVAGINAL PATHOGENS DNA [id number] 00:00:00* Test Item Value Reference Range Interpretation Comme nts DEB SPECIES (test code = ) POSITIVE G. VAGINALIS (test code = ) NEGATIVE T. VAGINALIS (test code = 35315) NEGATIVE Dwayne Bah AustinVAGINAL PATHOGENS DNA [id number] 00:00:00* Test Item Value Reference Range Interpretation Comme nts DEB SPECIES (test code = ) POSITIVE G. VAGINALIS (test code = 70000) NEGATIVE T. VAGINALIS (test code = 22672) NEGATIVE Dwayne MyersPAP TEST, THINPREP, [id number] 00:00:00* Test Item Value Reference Range Interpretation Comme nts SOURCE: (test code = 8001) Cervical/Endocervical SLIDES: (test code = 8011) 1 LMP: (test code = 8021) NOT GIVEN SPECIMEN ADEQUACY: (test code = 50954) (NOTE) INTERPRETATION: (test code = 63293) NILM/NO EPITH. ABNORMALITY;SEE BELOW OTHER COMMENTS: (test code = 8081) (NOTE) DIRECTOR TELEVISION NEWS: (test code = 8101) Mala Hernandez LOCATION: (test code = 94070) (NOTE) CPT: (test code = 8140) 51379 PDFE (test code = PDFReport) PDF Dwayne MyersPAP TEST, THINPREP, [id number] 00:00:00* Test Item Value Reference Range Interpretation Comme nts SOURCE: (test code = 8001) Cervical/Endocervical SLIDES: (test code = 8011) 1 LMP: (test code = 8021) NOT GIVEN SPECIMEN ADEQUACY: (test code = 09595) (NOTE) INTERPRETATION: (test code = 99010) NILM/NO EPITH. ABNORMALITY;SEE BELOW OTHER COMMENTS: (test code = 8081) (NOTE) DIRECTOR TELEVISION NEWS: (test code = 8101) Mala Hernandze LOCATION: (test code = 48275) (NOTE) CPT: (test code = 8140) 76844 PDFE (test code = PDFReport) PDF Dwayne Bah AustinVAGINAL PATHOGENS DNA [id number] 00:00:00* Test Item Value Reference Range Interpretation Comme nts DEB SPECIES (test code = ) POSITIVE G. VAGINALIS (test code = 83785) NEGATIVE T. VAGINALIS (test code = 78180) NEGATIVE Dwayne Bah AustinH. PYLORI (BREATH)2024-04-02 16:44:18* Test Item Value Reference Range Interpretation Comme nts H. PYLORI (BREATH) (test code = 49755) NEGATIVE NEGATIVE UNLESS OTHER HAMMONDS INDICATED, ALL TESTING PERFORMED AT [facility] [address] [place] [address] INKER MACHINE: BO MILLER M.D. CLIA NUMBER [id number] [facility] [place]. [id number] H. PYLORI (BREATH)2024-04-02 00:00:00* Test Item Value Reference Range Interpretation Comme nts H. PYLORI (BREATH) (test cod e = 77912) NEGATIVE Dwayne F AustinH. PYLORI (BREATH)2024-04-02 00:00:00* Test Item Value Reference Range Interpretation Comme nts H. PYLORI (BREATH) (test cod e = 36273) NEGATIVE Dwayne F AustinH. PYLORI (BREATH)2024-04-02 00:00:00* Test Item Value Reference Range Interpretation Comme nts H. PYLORI (BREATH) (test cod e = 85672) NEGATIVE Dwayne F AustinH. PYLORI (BREATH)2024-04-02 00:00:00* Test Item Value Reference Range Interpretation Comme nts H. PYLORI (BREATH) (test cod e = 02952) NEGATIVE Dwayne F AustinH. PYLORI (BREATH)2024-04-02 00:00:00* Test Item Value Reference Range Interpretation Comme nts H. PYLORI (BREATH) (test cod e = 48256) NEGATIVE Dwayne F AustinH. PYLORI (BREATH)2024-04-02 00:00:00* Test Item Value Reference Range Interpretation Comme nts H. PYLORI (BREATH) (test cod e = 32279) NEGATIVE Dwayneomayra MyersTROPONIN [id number] 23:42:55* Test Item Value Reference Range Interpretation Comme nts TROPONIN I (test code = 6745534356) 0.008 ng/mL <=0.034 LUCILLE (test code = [...] of biotin. Lab Interpretation (test code = 15103-0) [facility] (08728[facility]2024-03-22 23:32:19* Test Item Value Reference Range Interpretation Comme nts NA (test code = 4145622089) 140 mmol/L 135-145 K (test code = 1748593957) 4.2 mmol/L 3.5-5.0 Slight hemolysis CL (test code = 0670371870) 107 mmol/L 98-108 CO2 TOTAL (test code = 0095272205) 26 mmol/L 23-31 AGAP (test code = 2375082384) 7 2-16 BUN (test code = 1234990491) 12 mg/dL 7-23 Slight hemolysis GLUCOSE (test code = 5201996877) 114 mg/dL 70-110 H CREATININE (test code = 2160-0) 0.80 mg/dL 0.50-1.04 TOTAL BILI (test code = 1298910635) 0.5 mg/dL 0.1-1.1 CALCIUM (test code = 8303980858) 9.2 mg/dL 8.6-10.6 T PROTEIN (test code = 3578003290) 7.9 g/dL 6.3-8.2 ALBUMIN (test code = 3900656653) 4.5 g/dL 3.5-5.0 ALK PHOS (test code = 2612756789) 159 U/L 34-122 H Slight hemolysis ALTv (test code = 1742-6) 14 U/L 5-35 AST(SGOT) (test code = 6496242811) 35 U/L 13-40 Slight hemolysis eGFR (test code = 08573-5) 88.2 mL/min/1.73m2 CKD-EPI eGFR (2020). Assuming creatinine has been stable day-to-day for at least three months, the eGFR indicates Category G2 (60 - 89 mL/min/1.73 m2) Lab Interpretation (test code = 68436-3) [facility] 23:32:19* Test Item Value Reference Range Interpretation Comme nts LIPASE (test code = 6866310534) 73 U/L 0-220 Lab Interpretation (test cod e = 57000-2) Normal [facility] WITH [id number] 23:09:14* Test Item Value Reference Range Interpretation [...] g/dL 31.6-35.1 L RDW-SD (test code = 62948-0) 44.5 fL 39.0-49.9 RDW-CV (test code = 788-0) 14.8 % 12.0-15.5 PLT (test code = 777-3) 273 166-358 MPV (test code = 96849-5) 10.5 fL 9.5-12.9 NRBC/100 WBC (test code = 9337210040) 0.0 0.0-10.0 NRBC x10^3 (test code = 4255075493) See_Comment [Automated messa ge] The system which generated this result transmitted reference range: 10*3/?L. The reference range was not used to interpret this result as normal/abnormal. GRAN MAT (NEUT) % (test code = 770-8) 50.4 % IMM GRAN % (test code = 8812052310) 0.20 % LYMPH % (test code = 736-9) 34.1 % MONO % (test code = 5905-5) 12.1 % EOS % (test code = 713-8) 2.0 % BASO % (test code = 706-2) 1.2 % GRAN MAT x10^3(ANC) (test code = 9884627086) 2.55 10*3/uL 1.88-7.09 IMM GRAN x10^3 (test code = 2087914873) 0.00-0.06 LYMPH x10^3 (test code = 731-0) 1.72 10*3/uL 1.32-3.29 MONO x10^3 (test code = 742-7) 0.61 10*3/uL 0.33-0.92 EOS x10^3 (test code = 711-2) 0.10 10*3/uL 0.03-0.39 BASO x10^3 (test code = 704-7) 0.06 10*3/uL 0.01-0.07 Lab Interpretation (test code = 01762-6) [facility]normal [facility], [id number] 13:40:06SPECIMEN NUMBER: [id number] CULTURE, URINE SPECIMEN NUMBER: [id number] SPECIMEN COMMENT: URINE SOURCE: URINE REPORT STATUS: FINAL ISOLATE NUMBER 1: ORGANISM: 01/09/2024 >100,000 CFU/ML GRAM NEGATIVEBACILLI IDENTIFICATION: 01/10/2024 ESCHERICHIA COLI E. COLI AMOXICILLIN/CA SENSITIVE <=8/4AMPICILLIN SENSITIVE <=8CEFAZOLIN SENSITIVE <=2CEFTRIAXONE SENSITIVE <=1CIPROFLOXACIN SENSITIVE <=1LEVOFLOXACIN SENSITIVE <=2NITROFURANTOIN SENSITIVE <=32PIP/TAZOBAC SENSITIVE <=16TETRACYCLINE SENSITIVE <=4TOBRAMYCIN SENSITIVE <=4TRIMETH/SULFA SENSITIVE <=2/38 NOTE: NUMBERS DISPLAYED REPRESENT MINIMUM INHIBITORY CONCENTRATION (STEVAN) WHICH IS EXPRESSED IN MCG/ML. UNLESS OTHERWISE INDICATED, ALL TESTING PERFORMED AT [facility] [address] [place] [address] INKER MACHINE: BO MILLER M.D. CLIA NUMBER [id number] [place]. [id number], [id number] 00:00:00* Test Item Value Reference Range Interpretation Comme nts CULTURE, URINE (test code = 20927) SPECIMEN NUMBER: [id number] [facility], [id number] 00:00:00* Test Item Value Reference Range Interpretation Comme nts CULTURE, URINE (test code = 40515) SPECIMEN NUMBER: [id number] Dwayne John, [id number] 00:00:00* Test Item Value Reference Range Interpretation Comme nts CULTURE, URINE (test code = 16137) SPECIMEN NUMBER: [id number] Dwayne HobsonLTMAL, [id number] 00:00:00* Test Item Value Reference Range Interpretation Comme nts CULTURE, URINE (test code = 40325) SPECIMEN NUMBER: [id number] Dwayne HobsonLTMAL, [id number] 00:00:00* Test Item Value Reference Range Interpretation Comme nts CULTURE, URINE (test code = 42890) SPECIMEN NUMBER: [id number] Dwayne John [id number] 00:00:00* Test Item Value Reference Range Interpretation Comme nts CULTURE, URINE (test code = 12549) SPECIMEN NUMBER: [id number] Dwayne HobsonLTMAL, [id number] 00:00:00* Test Item Value Reference Range Interpretation Comme nts CULTURE, URINE (test code = 19905) SPECIMEN NUMBER: [id number] Dwayne MyersCBC W/AUTO [id number] 00:00:00* Test Item Value Reference Range Interpretation [...] ABS NUCLEATED RBCS (test cod e = 23336) 0.00 K/UL Dwayne MyersPROTHROMBIN TIME (PT)2024-01-08 00:00:00* Test Item Value Reference Range Interpretation Comme nts PROTHROMBIN TIME (PT) (test code = 1402) 12.5 SECONDS INR (test code = 68980) 0.9 Dwayne [id number] 00:00:00* Test Item Value Reference Range Interpretation Comme nts PTT (test code = 1403) 27.8 SECONDS Dwayne MyersCBC W/AUTO [id number] 00:00:00* Test Item Value Reference Range Interpretation [...] ABS NUCLEATED RBCS (test cod e = 50572) 0.00 K/UL Dwayne MyersPROTHROMBIN TIME (PT)2024-01-08 00:00:00* Test Item Value Reference Range Interpretation Comme nts PROTHROMBIN TIME (PT) (test code = 1402) 12.5 SECONDS INR (test code = 01098) 0.9 Dwayne [id number] 00:00:00* Test Item Value Reference Range Interpretation Comme nts PTT (test code = 1403) 27.8 SECONDS Dwayne MyersCBC W/AUTO [id number] 00:00:00* Test Item Value Reference Range Interpretation [...] ABS NUCLEATED RBCS (test cod e = 69103) 0.00 K/UL Dwayne Bah AustinPROTHROMBIN TIME (PT)2024-01-08 00:00:00* Test Item Value Reference Range Interpretation Comme nts PROTHROMBIN TIME (PT) (test code = 1402) 12.5 SECONDS INR (test code = 58707) 0.9 Dwayne [id number] 00:00:00* Test Item Value Reference Range Interpretation Comme nts PTT (test code = 1403) 27.8 SECONDS Dwayne MyersCBC W/AUTO [id number] 00:00:00* Test Item Value Reference Range Interpretation [...] ABS NUCLEATED RBCS (test cod e = 10521) 0.00 K/UL Dwayne Bah AustinPROTHROMBIN TIME (PT)2024-01-08 00:00:00* Test Item Value Reference Range Interpretation Comme nts PROTHROMBIN TIME (PT) (test code = 1402) 12.5 SECONDS INR (test code = 30817) 0.9 Dwayne [id number] 00:00:00* Test Item Value Reference Range Interpretation Comme nts PTT (test code = 1403) 27.8 SECONDS Dwayne MyersCBC W/AUTO [id number] 00:00:00* Test Item Value Reference Range Interpretation [...] ABS NUCLEATED RBCS (test cod e = 45669) 0.00 K/UL Dwayne MyersPROTHROMBIN TIME (PT)2024-01-08 00:00:00* Test Item Value Reference Range Interpretation Comme nts PROTHROMBIN TIME (PT) (test code = 1402) 12.5 SECONDS INR (test code = 26755) 0.9 Dwayne [id number] 00:00:00* Test Item Value Reference Range Interpretation Comme nts PTT (test code = 1403) 27.8 SECONDS Dwayne MyersCBC W/AUTO [id number] 00:00:00* Test Item Value Reference Range Interpretation [...] ABS NUCLEATED RBCS (test cod e = 05393) 0.00 K/UL Dwayne MyersPROTHROMBIN TIME (PT)2024-01-08 00:00:00* Test Item Value Reference Range Interpretation Comme nts PROTHROMBIN TIME (PT) (test code = 1402) 12.5 SECONDS INR (test code = 79475) 0.9 Dwayne Bah [id number] 00:00:00* Test Item Value Reference Range Interpretation Comme nts PTT (test code = 1403) 27.8 SECONDS Dwayne MyersCBC W/AUTO [id number] 00:00:00* Test Item Value Reference Range Interpretation [...] ABS NUCLEATED RBCS (test cod e = 00871) 0.00 K/UL Dwayne Niurka LouisPROTHROMBIN TIME (PT)2024-01-08 00:00:00* Test Item Value Reference Range Interpretation Comme nts PROTHROMBIN TIME (PT) (test code = 1402) 12.5 SECONDS INR (test code = 65385) 0.9 Dwayne F [id number] 00:00:00* Test Item Value Reference Range Interpretation Comme nts PTT (test code = 1403) 27.8 SECONDS Dwayne F LouisCOMPREHENSIVE METABOLIC [id number] 05:54:09* Test Item Value Reference Range Interpretation Comme nts GLUCOSE (test code = 2217) 98 MG/DL 70-99 BUN (test code = 2208) 9 MG/DL 6-20 CREATININE (test code = 2214) 0.97 MG/DL 0.60-1.30 eGFR (2020 CKD-EPI) (test co de = 30578) 70 ML/MIN/1.73 >60 CALC BUN/CREAT (test code = 2234) 9 RATIO 6-28 SODIUM (test code = 223) 141 MEQ/L 133-146 POTASSIUM (test code = 8) 4.3 MEQ/L 3.5-5.4 CHLORIDE (test code = 2214) 106 MEQ/L 95-107 CARBON DIOXIDE (test code = 2205) 22 MEQ/L 19-31 CALCIUM (test code = 2208) 9.7 MG/DL 8.5-10.5 PROTEIN, TOTAL (test code = 2228) 6.7 G/DL 6.1-8.3 ALBUMIN (test code = 2200) 4.4 G/DL 3.5-5.2 CALC GLOBULIN (test code = 224) 2.3 G/DL 1.9-3.7 CALC A/G RATIO (test code = 2233) 1.9 RATIO 1.0-2.6 BILIRUBIN, TOTAL (test code = 2206) 0.3 MG/DL <=1.2 ALKALINE PHOSPHATASE (test code = 2203) 92 U/L 40-133 AST (test code = 2217) 15 U/L 9-40 ALT (test code = 2219) 21 U/L 5-40 LIPID [id number] 05:54:09* Test Item Value Reference Range Interpretation Comme nts CHOLESTEROL (test code = 2210) 216 MG/DL <200 H TRIGLYCERIDES (test code = 2232) 292 MG/DL <150 H HDL CHOLESTEROL (test code = 2219) 56 MG/DL >39 CALC LDL CHOL (test code = 2237) 115 MG/DL <100 H NOTE: CALCULATED LDL IS BASED ON GLENIS-MIRELES METHOD WHICHINCLUDES ADJUSTABLE TRIGLYCERIDE:VLDL CHOLESTEROL RATIO.THIS FACTOR VARIES BY MEASURED TRIGLYCERIDE AND NON-HDLCHOLESTEROL CONCENTRATIONS WITH INCREASED CALCULATED LDL SEENIN HIGHER TRIGLYCERIDE OR LOWER NON-HDL SPECIMENS. FOR MOREINFORMATION, SEE CLIENT ANNOUNCEMENT AT [email or web address] RISK RATIO LDL/HDL (test code = 2238) 2.05 RATIO <3.22 UNLESS OTHERW ISE INDICATED, ALL TESTING PERFORMED AT [facility] [address] [place] [address] INKER MACHINE: BO MILLER M.D. [place] NUMBER [id number] [facility] [place]. [id number] HEMOGLOBIN [id number] 02:34:18* Test Item Value Reference Range Interpretation Comme nts HEMOGLOBIN A1c (test code = 32419) 6.0 % 4.2-5.6 H [employer] GUIDELINES FOR HGB A1C: [...] ALTERNATE TESTING OR LABORATORY CONSULTATION. COMPREHENSIVE METABOLIC [id number] 00:00:00* Test Item Value Reference Range Interpretation Comme nts GLUCOSE (test code = 2217) 98 MG/DL BUN (test code = 2208) 9 MG/DL CREATININE (test code = 2214) 0.97 MG/DL eGFR (2020 CKD-EPI) (test co de = 52218) 70 ML/MIN/1.73 CALC BUN/CREAT (test code = [...] code = 2219) 21 U/L Dwayne MyersHEMOGLOBIN [id number] 00:00:00* Test Item Value Reference Range Interpretation Comme nts HEMOGLOBIN A1c (test code = 76126) 6.0 % Dwayne MyersLIPID [id number] 00:00:00* Test Item Value Reference Range Interpretation Comme nts CHOLESTEROL (test code = 2210) 216 MG/DL TRIGLYCERIDES (test code = 2232) 292 MG/DL HDL CHOLESTEROL (test code = 2220) 56 MG/DL CALC LDL CHOL (test code = 2237) 115 MG/DL RISK RATIO LDL/HDL (test cod e = 2238) 2.05 RATIO Dwayne MyersCOMPREHENSIVE METABOLIC [id number] 00:00:00* Test Item Value Reference Range Interpretation Comme nts GLUCOSE (test code = 2217) 98 MG/DL BUN (test code = 2208) 9 MG/DL CREATININE (test code = 2214) 0.97 MG/DL eGFR (2020 CKD-EPI) (test co de = 21609) 70 ML/MIN/1.73 CALC BUN/CREAT (test code = [...] code = 2219) 21 U/L Dwayne MyersHEMOGLOBIN [id number] 00:00:00* Test Item Value Reference Range Interpretation Comme nts HEMOGLOBIN A1c (test code = 04492) 6.0 % Dwayne MyersLIPID [id number] 00:00:00* Test Item Value Reference Range Interpretation Comme nts CHOLESTEROL (test code = 2210) 216 MG/DL TRIGLYCERIDES (test code = 2232) 292 MG/DL HDL CHOLESTEROL (test code = 2220) 56 MG/DL CALC LDL CHOL (test code = 2237) 115 MG/DL RISK RATIO LDL/HDL (test cod e = 2238) 2.05 RATIO Dwayne MyersCOMPREHENSIVE METABOLIC [id number] 00:00:00* Test Item Value Reference Range Interpretation Comme nts GLUCOSE (test code = 2217) 98 MG/DL BUN (test code = 2208) 9 MG/DL CREATININE (test code = 2214) 0.97 MG/DL eGFR (2020 CKD-EPI) (test co de = 06168) 70 ML/MIN/1.73 CALC BUN/CREAT (test code = [...] code = 2219) 21 U/L Dwayne MyersHEMOGLOBIN [id number] 00:00:00* Test Item Value Reference Range Interpretation Comme nts HEMOGLOBIN A1c (test code = 38034) 6.0 % Dwayne MyersLIPID [id number] 00:00:00* Test Item Value Reference Range Interpretation Comme nts CHOLESTEROL (test code = 2210) 216 MG/DL TRIGLYCERIDES (test code = 2232) 292 MG/DL HDL CHOLESTEROL (test code = 2220) 56 MG/DL CALC LDL CHOL (test code = 2237) 115 MG/DL RISK RATIO LDL/HDL (test cod e = 2238) 2.05 RATIO Dwayne MyersCOMPREHENSIVE METABOLIC [id number] 00:00:00* Test Item Value Reference Range Interpretation Comme nts GLUCOSE (test code = 2217) 98 MG/DL BUN (test code = 2208) 9 MG/DL CREATININE (test code = 2214) 0.97 MG/DL eGFR (2020 CKD-EPI) (test co de = 81154) 70 ML/MIN/1.73 CALC BUN/CREAT (test code = [...] code = 2219) 21 U/L Dwayne MyersHEMOGLOBIN [id number] 00:00:00* Test Item Value Reference Range Interpretation Comme nts HEMOGLOBIN A1c (test code = 37797) 6.0 % Dwayne MyersLIPID [id number] 00:00:00* Test Item Value Reference Range Interpretation Comme nts CHOLESTEROL (test code = 2210) 216 MG/DL TRIGLYCERIDES (test code = 2232) 292 MG/DL HDL CHOLESTEROL (test code = 2220) 56 MG/DL CALC LDL CHOL (test code = 2237) 115 MG/DL RISK RATIO LDL/HDL (test cod e = 2238) 2.05 RATIO Dwayne MyersCOMPREHENSIVE METABOLIC [id number] 00:00:00* Test Item Value Reference Range Interpretation Comme nts GLUCOSE (test code = 2217) 98 MG/DL BUN (test code = 2208) 9 MG/DL CREATININE (test code = 2214) 0.97 MG/DL eGFR (2020 CKD-EPI) (test co de = 94321) 70 ML/MIN/1.73 CALC BUN/CREAT (test code = [...] code = 2219) 21 U/L Dwayne MyersHEMOGLOBIN [id number] 00:00:00* Test Item Value Reference Range Interpretation Comme nts HEMOGLOBIN A1c (test code = 20406) 6.0 % Dwayne MyersLIPID [id number] 00:00:00* Test Item Value Reference Range Interpretation Comme nts CHOLESTEROL (test code = 2210) 216 MG/DL TRIGLYCERIDES (test code = 2232) 292 MG/DL HDL CHOLESTEROL (test code = 2220) 56 MG/DL CALC LDL CHOL (test code = 2237) 115 MG/DL RISK RATIO LDL/HDL (test cod e = 2238) 2.05 RATIO Dwayne MyersCOMPREHENSIVE METABOLIC [id number] 00:00:00* Test Item Value Reference Range Interpretation Comme nts GLUCOSE (test code = 2217) 98 MG/DL BUN (test code = 2208) 9 MG/DL CREATININE (test code = 2214) 0.97 MG/DL eGFR (2020 CKD-EPI) (test co de = 98284) 70 ML/MIN/1.73 CALC BUN/CREAT (test code = [...] code = 2219) 21 U/L Dwayne MyersHEMOGLOBIN [id number] 00:00:00* Test Item Value Reference Range Interpretation Comme nts HEMOGLOBIN A1c (test code = 75614) 6.0 % Dwayne MyersLIPID [id number] 00:00:00* Test Item Value Reference Range Interpretation Comme nts CHOLESTEROL (test code = 2210) 216 MG/DL TRIGLYCERIDES (test code = 2232) 292 MG/DL HDL CHOLESTEROL (test code = 2220) 56 MG/DL CALC LDL CHOL (test code = 2237) 115 MG/DL RISK RATIO LDL/HDL (test cod e = 2238) 2.05 RATIO Dwayne MyersCOMPREHENSIVE METABOLIC [id number] 00:00:00* Test Item Value Reference Range Interpretation Comme nts GLUCOSE (test code = 2217) 98 MG/DL BUN (test code = 2208) 9 MG/DL CREATININE (test code = 2214) 0.97 MG/DL eGFR (2020 CKD-EPI) (test co de = 12351) 70 ML/MIN/1.73 CALC BUN/CREAT (test code = [...] code = 2219) 21 U/L Dwayne MyersHEMOGLOBIN [id number] 00:00:00* Test Item Value Reference Range Interpretation Comme nts HEMOGLOBIN A1c (test code = 90871) 6.0 % Dwayne MyersLIPID [id number] 00:00:00* Test Item Value Reference Range Interpretation Comme nts CHOLESTEROL (test code = 2210) 216 MG/DL TRIGLYCERIDES (test code = 2232) 292 MG/DL HDL CHOLESTEROL (test code = 2220) 56 MG/DL CALC LDL CHOL (test code = 2237) 115 MG/DL RISK RATIO LDL/HDL (test cod e = 2238) 2.05 RATIO Dwayne MyersXR KNEE 3 VW [id number] 04:27:07EXAM:XR KNEE 3 VW RIGHT, XR ANKLE [...] Dystrophic calcifications along the superiorpatellar tendon are suggested.[facility] HIPS 2 VW [id number] 04:27:07EXAM:XR KNEE 3 VW RIGHT, XR ANKLE [...] is congruent.Superior patellar enthesophytes are present. Posterior france ntarenthesophytes are also seen. Dystrophic calcifications along the superiorpatellar tendon are suggested.[facility] TylerXR ANKLE 3+ VW [id number] 04:27:07EXAM:XR KNEE 3 VW RIGHT, XR ANKLE [...] Dystrophic calcifications along the superiorpatellar tendon are suggested.[facility] TylerXR FEMUR 2 VW [id number] 04:27:07EXAM:XR KNEE 3 VW RIGHT, XR ANKLE [...] Dystrophic calcifications along the superiorpatellar tendon are suggested.[facility] ALBUMIN/CREATININE RATIO, URINE, [id number] 04:41:49* Test Item Value Reference Range Interpretation Comme nts CREATININE, URINE, CONC. (test code = 2072) 352.8 MG/DL NOT ESTAB ALBUMIN, URINE, RANDOM (test code = 88635) 2.5 MG/DL NOT ESTAB CALC ALBUMIN/CREAT, RND (test code = 30585) 7 MG/G <30 Note: Albumin/Cr eatinine ratio reference interval reflects ADA and NKF guidelines. UNLESS OTHERWISE INDICATED, ALL TESTING PERFORMED AT [facility] [address] [place] [address] INKER MACHINE: BO MILLER M.D. CLIA NUMBER [id number] [facility]. [id number] ALBUMIN/CREATININE RATIO, RANDOM [id number] 00:00:00* Test Item Value Reference Range Interpretation Comme nts CREATININE, URINE, CONC. (te st code = 2072) 352.8 MG/DL ALBUMIN, URINE, RANDOM (test code = 63023) 2.5 MG/DL CALC ALBUMIN/CREAT, RND (ector t code = 62160) 7 MG/G Dwayne F AustinALBUMIN/CREATININE RATIO, RANDOM [id number] 00:00:00* Test Item Value Reference Range Interpretation Comme nts CREATININE, URINE, CONC. (te st code = 2071) 352.8 MG/DL ALBUMIN, URINE, RANDOM (test code = 70014) 2.5 MG/DL CALC ALBUMIN/CREAT, RND (ector t code = 86958) 7 MG/G Dwayne F AustinALBUMIN/CREATININE RATIO, RANDOM [id number] 00:00:00* Test Item Value Reference Range Interpretation Comme nts CREATININE, URINE, CONC. (te st code = 2071) 352.8 MG/DL ALBUMIN, URINE, RANDOM (test code = 07964) 2.5 MG/DL CALC ALBUMIN/CREAT, RND (ector t code = 01456) 7 MG/G Dwayne F AustinALBUMIN/CREATININE RATIO, RANDOM [id number] 00:00:00* Test Item Value Reference Range Interpretation Comme nts CREATININE, URINE, CONC. (te st code = 2071) 352.8 MG/DL ALBUMIN, URINE, RANDOM (test code = 69958) 2.5 MG/DL CALC ALBUMIN/CREAT, RND (ector t code = 96158) 7 MG/G Dwayne F AustinALBUMIN/CREATININE RATIO, RANDOM [id number] 00:00:00* Test Item Value Reference Range Interpretation Comme nts CREATININE, URINE, CONC. (te st code = 2071) 352.8 MG/DL ALBUMIN, URINE, RANDOM (test code = 50303) 2.5 MG/DL CALC ALBUMIN/CREAT, RND (ector t code = 75502) 7 MG/G Dwayne F AustinALBUMIN/CREATININE RATIO, RANDOM [id number] 00:00:00* Test Item Value Reference Range Interpretation Comme nts CREATININE, URINE, CONC. (te st code = 2071) 352.8 MG/DL ALBUMIN, URINE, RANDOM (test code = 52432) 2.5 MG/DL CALC ALBUMIN/CREAT, RND (ector t code = 48854) 7 MG/G Dwayne F AustinALBUMIN/CREATININE RATIO, RANDOM [id number] 00:00:00* Test Item Value Reference Range Interpretation Comme nts CREATININE, URINE, CONC. (te st code = 207) 352.8 MG/DL ALBUMIN, URINE, RANDOM (test code = 35059) 2.5 MG/DL CALC ALBUMIN/CREAT, RND (ector t code = 82437) 7 MG/G Dwayne F AustinALBUMIN/CREATININE RATIO, RANDOM [id number] 00:00:00* Test Item Value Reference Range Interpretation Comme nts CREATININE, URINE, CONC. (te st code = 2071) 352.8 MG/DL ALBUMIN, URINE, RANDOM (test code = 06792) 2.5 MG/DL CALC ALBUMIN/CREAT, RND (ector t code = 67682) 7 MG/G Dwayne F AustinALBUMIN/CREATININE RATIO, RANDOM [id number] 00:00:00* Test Item Value Reference Range Interpretation Comme nts CREATININE, URINE, CONC. (te st code = 2071) 352.8 MG/DL ALBUMIN, URINE, RANDOM (test code = 57989) 2.5 MG/DL CALC ALBUMIN/CREAT, RND (ector t code = 57099) 7 MG/G Dwayne F AustinCT HEAD W/O CONTRAST *WW*2023-06-03 23:07:26 [facility] : 1970 Sex: FEXAMINATION:CTHEAD W/O [...] MD 06/03/2023 11:07 PM CDT , THIRD [id number] 06:05:55* Test Item Value Reference Range Interpretation Comme nts TSH, THIRD GENERATION (test code = 2821) 1.820 UIU/ML 0.400-4.100 UNLESS OTHERWISE INDICATED, ALL TESTING PERFORMED AT [facility] [address] [place] [address] INKER MACHINE: BO MILLER M.D. CLIA NUMBER [id number] [facility]. [id number] TSH, THIRD [id number] 00:00:00* Test Item Value Reference Range Interpretation Comme nts TSH, THIRD GENERATION (test code = 2821) 1.820 UIU/ML Dwayne F DmitryH, THIRD [id number] 00:00:00* Test Item Value Reference Range Interpretation Comme nts TSH, THIRD GENERATION (test code = 2821) 1.820 UIU/ML Dwayne F LouisTSH, THIRD [id number] 00:00:00* Test Item Value Reference Range Interpretation Comme nts TSH, THIRD GENERATION (test code = 2821) 1.820 UIU/ML Dwayne F AustinTSH, THIRD [id number] 00:00:00* Test Item Value Reference Range Interpretation Comme nts TSH, THIRD GENERATION (test code = 2821) 1.820 UIU/ML Dwayne F LouisTSH, THIRD [id number] 00:00:00* Test Item Value Reference Range Interpretation Comme nts TSH, THIRD GENERATION (test code = 2821) 1.820 UIU/ML Dwayne F AustinTSH, THIRD [id number] 00:00:00* Test Item Value Reference Range Interpretation Comme nts TSH, THIRD GENERATION (test code = 2821) 1.820 UIU/ML Dwayne Patel, THIRD [id number] 00:00:00* Test Item Value Reference Range Interpretation Comme nts TSH, THIRD GENERATION (test code = 2821) 1.820 UIU/ML Dwayne Patel, THIRD [id number] 00:00:00* Test Item Value Reference Range Interpretation Comme nts TSH, THIRD GENERATION (test code = 2821) 1.820 UIU/ML Dwayne Patel, THIRD [id number] 00:00:00* Test Item Value Reference Range Interpretation Comme nts TSH, THIRD GENERATION (test code = 2821) 1.820 UIU/ML Dwayne MyersCT/NG, NAAT, URINE [ADDED]2023-04-27 00:00:00* Test Item Value Reference Range Interpretation Comme vivek CHLAMYDIA, NAAT, URINE (test code = 18883) NEGATIVE GONORRHEA, NAAT, URINE (test code = 50812) NEGATIVE Dwayne MyersHIV 1/2 4TH GEN, RFLX CONF [ADDED]2023-04-27 00:00:00* Test Item Value Reference Range Interpretation Comme vivek HIV 1/2 4TH GEN, RFLX CONF ( test code = 3514) NON-REACTIVE Dwayne MyersHEPATITIS PANEL, ACUTE [ADDED]2023-04-27 00:00:00* Test Item Value Reference Range Interpretation Comme nts HEPATITIS A IgM (test code = 50185) NON-REACTIVE HEPATITIS B CORE IgM (test c ode = 4644) NON-REACTIVE HEPATITIS B SURF AG (test co de = 2739) NON-REACTIVE HEPATITIS C ANTIBODY (test c ode = 4675) NON-REACTIVE INTERPRETATION HEPATITIS A: (test code = 2552) (NOTE) INTERPRETATION HEPATITIS B: (test code = 13675) (NOTE) INTERPRETATION HEPATITIS C: (test code = 87783) (NOTE) Dwayne MyersHEMOGLOBIN A1c [ADDED]2023-04-27 00:00:00* Test Item Value Reference Range Interpretation Comme vivek HEMOGLOBIN A1c (test code = 00045) 6.3 % Dwayne Bah AustinCT/NG, NAAT, URINE [ADDED]2023-04-27 00:00:00* Test Item Value Reference Range Interpretation Comme nts CHLAMYDIA, NAAT, URINE (test code = 26962) NEGATIVE GONORRHEA, NAAT, URINE (test code = 38918) NEGATIVE Dwayne MyersHIV 1/2 4TH GEN, RFLX CONF [ADDED]2023-04-27 00:00:00* Test Item Value Reference Range Interpretation Comme nts HIV 1/2 4TH GEN, RFLX CONF ( test code = 3514) NON-REACTIVE Dwayne Bah AustinHEPATITIS PANEL, ACUTE [ADDED]2023-04-27 00:00:00* Test Item Value Reference Range Interpretation Comme nts HEPATITIS A IgM (test code = 22881) NON-REACTIVE HEPATITIS B CORE IgM (test c ode = 4644) NON-REACTIVE HEPATITIS B SURF AG (test co de = 2739) NON-REACTIVE HEPATITIS C ANTIBODY (test c ode = 4675) NON-REACTIVE INTERPRETATION HEPATITIS A: (test code = 2552) (NOTE) INTERPRETATION HEPATITIS B: (test code = 43048) (NOTE) INTERPRETATION HEPATITIS C: (test code = 17235) (NOTE) Dwayne MyersHEMOGLOBIN A1c [ADDED]2023-04-27 00:00:00* Test Item Value Reference Range Interpretation Comme nts HEMOGLOBIN A1c (test code = 51544) 6.3 % Dwayne Bah AustinCT/NG, NAAT, URINE [ADDED]2023-04-27 00:00:00* Test Item Value Reference Range Interpretation Comme nts CHLAMYDIA, NAAT, URINE (test code = 29194) NEGATIVE GONORRHEA, NAAT, URINE (test code = 79724) NEGATIVE Dwayne MyersHIV 1/2 4TH GEN, RFLX CONF [ADDED]2023-04-27 00:00:00* Test Item Value Reference Range Interpretation Comme nts HIV 1/2 4TH GEN, RFLX CONF ( test code = 3514) NON-REACTIVE Dwayne MyersHEPATITIS PANEL, ACUTE [ADDED]2023-04-27 00:00:00* Test Item Value Reference Range Interpretation Comme nts HEPATITIS A IgM (test code = 98658) NON-REACTIVE HEPATITIS B CORE IgM (test c ode = 4644) NON-REACTIVE HEPATITIS B SURF AG (test co de = 2739) NON-REACTIVE HEPATITIS C ANTIBODY (test c ode = 4675) NON-REACTIVE INTERPRETATION HEPATITIS A: (test code = 2552) (NOTE) INTERPRETATION HEPATITIS B: (test code = 63615) (NOTE) INTERPRETATION HEPATITIS C: (test code = 41027) (NOTE) Dwayne MyersHEMOGLOBIN A1c [ADDED]2023-04-27 00:00:00* Test Item Value Reference Range Interpretation Comme nts HEMOGLOBIN A1c (test code = 14674) 6.3 % Dwayne Bah AustinCT/NG, NAAT, URINE [ADDED]2023-04-27 00:00:00* Test Item Value Reference Range Interpretation Comme nts CHLAMYDIA, NAAT, URINE (test code = 95590) NEGATIVE GONORRHEA, NAAT, URINE (test code = 46714) NEGATIVE Dwayne MeyrsHIV 1/2 4TH GEN, RFLX CONF [ADDED]2023-04-27 00:00:00* Test Item Value Reference Range Interpretation Comme nts HIV 1/2 4TH GEN, RFLX CONF ( test code = 3514) NON-REACTIVE Dwayne MyersHEPATITIS PANEL, ACUTE [ADDED]2023-04-27 00:00:00* Test Item Value Reference Range Interpretation Comme nts HEPATITIS A IgM (test code = 63065) NON-REACTIVE HEPATITIS B CORE IgM (test c ode = 4644) NON-REACTIVE HEPATITIS B SURF AG (test co de = 2739) NON-REACTIVE HEPATITIS C ANTIBODY (test c ode = 4675) NON-REACTIVE INTERPRETATION HEPATITIS A: (test code = 2552) (NOTE) INTERPRETATION HEPATITIS B: (test code = 52074) (NOTE) INTERPRETATION HEPATITIS C: (test code = 30087) (NOTE) Dwayne Bah AustinHEMOGLOBIN A1c [ADDED]2023-04-27 00:00:00* Test Item Value Reference Range Interpretation Comme nts HEMOGLOBIN A1c (test code = 28181) 6.3 % Dwayne Bah AustinCT/NG, NAAT, URINE [ADDED]2023-04-27 00:00:00* Test Item Value Reference Range Interpretation Comme nts CHLAMYDIA, NAAT, URINE (test code = 55283) NEGATIVE GONORRHEA, NAAT, URINE (test code = 77839) NEGATIVE Dwayne Bah AustinHIV 1/2 4TH GEN, RFLX CONF [ADDED]2023-04-27 00:00:00* Test Item Value Reference Range Interpretation Comme nts HIV 1/2 4TH GEN, RFLX CONF ( test code = 3514) NON-REACTIVE Dwayne MauricioPATITIS PANEL, ACUTE [ADDED]2023-04-27 00:00:00* Test Item Value Reference Range Interpretation Comme nts HEPATITIS A IgM (test code = 64717) NON-REACTIVE HEPATITIS B CORE IgM (test c ode = 4644) NON-REACTIVE HEPATITIS B SURF AG (test co de = 2739) NON-REACTIVE HEPATITIS C ANTIBODY (test c ode = 4675) NON-REACTIVE INTERPRETATION HEPATITIS A: (test code = 2552) (NOTE) INTERPRETATION HEPATITIS B: (test code = 16811) (NOTE) INTERPRETATION HEPATITIS C: (test code = 95538) (NOTE) Dwayne MyersHEMOGLOBIN A1c [ADDED]2023-04-27 00:00:00* Test Item Value Reference Range Interpretation Comme nts HEMOGLOBIN A1c (test code = 15034) 6.3 % Dwayne MyersCT/NG, NAAT, URINE [ADDED]2023-04-27 00:00:00* Test Item Value Reference Range Interpretation Comme nts CHLAMYDIA, NAAT, URINE (test code = 76119) NEGATIVE GONORRHEA, NAAT, URINE (test code = 46799) NEGATIVE Dwayne MyersHIV 1/2 4TH GEN, RFLX CONF [ADDED]2023-04-27 00:00:00* Test Item Value Reference Range Interpretation Comme nts HIV 1/2 4TH GEN, RFLX CONF ( test code = 3514) NON-REACTIVE Dwayne MauricioPATITIS PANEL, ACUTE [ADDED]2023-04-27 00:00:00* Test Item Value Reference Range Interpretation Comme nts HEPATITIS A IgM (test code = 40674) NON-REACTIVE HEPATITIS B CORE IgM (test c ode = 4644) NON-REACTIVE HEPATITIS B SURF AG (test co de = 2739) NON-REACTIVE HEPATITIS C ANTIBODY (test c ode = 4675) NON-REACTIVE INTERPRETATION HEPATITIS A: (test code = 2552) (NOTE) INTERPRETATION HEPATITIS B: (test code = 19433) (NOTE) INTERPRETATION HEPATITIS C: (test code = 23891) (NOTE) Dwayne MyersHEMOGLOBIN A1c [ADDED]2023-04-27 00:00:00* Test Item Value Reference Range Interpretation Comme nts HEMOGLOBIN A1c (test code = 64874) 6.3 % Dwayne Bah AustinCT/NG, NAAT, URINE [ADDED]2023-04-27 00:00:00* Test Item Value Reference Range Interpretation Comme nts CHLAMYDIA, NAAT, URINE (test code = 79817) NEGATIVE GONORRHEA, NAAT, URINE (test code = 04983) NEGATIVE Dwayne Bah AustinHIV 1/2 4TH GEN, RFLX CONF [ADDED]2023-04-27 00:00:00* Test Item Value Reference Range Interpretation Comme nts HIV 1/2 4TH GEN, RFLX CONF ( test code = 3514) NON-REACTIVE Dwayne F AustinHEPATITIS PANEL, ACUTE [ADDED]2023-04-27 00:00:00* Test Item Value Reference Range Interpretation Comme nts HEPATITIS A IgM (test code = 51397) NON-REACTIVE HEPATITIS B CORE IgM (test c ode = 4644) NON-REACTIVE HEPATITIS B SURF AG (test co de = 2739) NON-REACTIVE HEPATITIS C ANTIBODY (test c ode = 4675) NON-REACTIVE INTERPRETATION HEPATITIS A: (test code = 2552) (NOTE) INTERPRETATION HEPATITIS B: (test code = 02026) (NOTE) INTERPRETATION HEPATITIS C: (test code = 00888) (NOTE) Dwayne MyersHEMOGLOBIN A1c [ADDED]2023-04-27 00:00:00* Test Item Value Reference Range Interpretation Comme nts HEMOGLOBIN A1c (test code = 79918) 6.3 % Dwayne Bah AustinCT/NG, NAAT, URINE [ADDED]2023-04-27 00:00:00* Test Item Value Reference Range Interpretation Comme nts CHLAMYDIA, NAAT, URINE (test code = 09471) NEGATIVE GONORRHEA, NAAT, URINE (test code = 22312) NEGATIVE Dwayne Bah AustinHIV 1/2 4TH GEN, RFLX CONF [ADDED]2023-04-27 00:00:00* Test Item Value Reference Range Interpretation Comme nts HIV 1/2 4TH GEN, RFLX CONF ( test code = 3514) NON-REACTIVE Dwayne Bah AustinHEPATITIS PANEL, ACUTE [ADDED]2023-04-27 00:00:00* Test Item Value Reference Range Interpretation Comme nts HEPATITIS A IgM (test code = 06771) NON-REACTIVE HEPATITIS B CORE IgM (test c ode = 4644) NON-REACTIVE HEPATITIS B SURF AG (test co de = 2739) NON-REACTIVE HEPATITIS C ANTIBODY (test c ode = 4675) NON-REACTIVE INTERPRETATION HEPATITIS A: (test code = 2552) (NOTE) INTERPRETATION HEPATITIS B: (test code = 96694) (NOTE) INTERPRETATION HEPATITIS C: (test code = 27279) (NOTE) Dwayne Bah AustinHEMOGLOBIN A1c [ADDED]2023-04-27 00:00:00* Test Item Value Reference Range Interpretation Comme nts HEMOGLOBIN A1c (test code = 38773) 6.3 % Dwayne Bah AustinCT/NG, NAAT, URINE [ADDED]2023-04-27 00:00:00* Test Item Value Reference Range Interpretation Comme nts CHLAMYDIA, NAAT, URINE (test code = 83962) NEGATIVE GONORRHEA, NAAT, URINE (test code = 66232) NEGATIVE Dwayne MyersHIV 1/2 4TH GEN, RFLX CONF [ADDED]2023-04-27 00:00:00* Test Item Value Reference Range Interpretation Comme nts HIV 1/2 4TH GEN, RFLX CONF ( test code = 3514) NON-REACTIVE Dwayne MyersHEPATITIS PANEL, ACUTE [ADDED]2023-04-27 00:00:00* Test Item Value Reference Range Interpretation Comme nts HEPATITIS A IgM (test code = 27944) NON-REACTIVE HEPATITIS B CORE IgM (test c ode = 4644) NON-REACTIVE HEPATITIS B SURF AG (test co de = 2739) NON-REACTIVE HEPATITIS C ANTIBODY (test c ode = 4675) NON-REACTIVE INTERPRETATION HEPATITIS A: (test code = 2552) (NOTE) INTERPRETATION HEPATITIS B: (test code = 95930) (NOTE) INTERPRETATION HEPATITIS C: (test code = 41298) (NOTE) Dwayne Bah AustinHEMOGLOBIN A1c [ADDED]2023-04-27 00:00:00* Test Item Value Reference Range Interpretation Comme nts HEMOGLOBIN A1c (test code = 51528) 6.3 % Dwayne Bah AustinU/S GALLBLADDER*WW*2023-04-15 05:22:28 [facility] : 1970 Sex: FDICTATION LOCATION: [id number]: Female, 52 years of age with abdominal [...] CDT ABDOMEN AND PELVIS WITH CONTRAST*WW*2023-04-15 02:03:27 [facility] : 1970 Sex: FEXAM: CT ABDOMEN PELVIS WITH IV CONTRASTLOCATION: [id number]: Abdominal painTECHNIQUE: Serial axial CT images wereobtained [...] Siddhartha Jackson DO 04/15/2023 2:03 AM CDT 6500HSJURINALYSIS WITH MICRO *WW*2023-04-15 01:39:00* Test Item Value [...] Order Code is ANTI-XA COMPREHENSIVE METABOLIC ENRIQUE 2023-04-15 00:26:00* Test Item Value Reference Range [...] = 60A) 36 IU/L 12-53 TROPONIN I 2023-04-15 00:25:00* Test Item Value Reference Range Interpretation Comme nts TROPONIN I (test code = A84) 13.47 pg/mL 0.00-45.20 CBC (INCLUDES AUTOMATED DIFFERENTIAL)*[id number] 00:18:00* Test Item Value Reference Range Interpretation [...] WRBCMOR) NORMAL C-ARM<1 HR W IMAGES*WW*2023-02-08 11:26:14 [facility] : 1970 Sex: FFluoroscopyLocation Code: [id number] HISTORY: Back painComments: Fluoroscopy was provided during lumbar RFA. Approximately fluoroscopy time was 9.1 seconds. 2 fluoroscopic spot images were taken.IMPRESSION: Fluoroscopy services provided. Please see operative report for full details.Electronically signed by: Iglesia Garvey MD 02/08/2023 11:26 AM CDT + LH [id number] 07:50:33* Test Item Value Reference Range Interpretation [...] LUTEAL PHASE 1.0-11.4 IU/L POSTMENOPAUSAL 7.7-58.5 IU/L [facility] has important pathology staff changes effective 11/01/2022. New pathology staff will provide uninterrupted, excellent patient care and clinical consultation. See URL: [email or web address]. UNLESS OTHERWISE INDICATED, ALL TESTING PERFORMED AT [facility] [address] [place] [address] INKER MACHINE: BO MILLER M.D. CLIA NUMBER [id number] [facility] [place]. [id number] FSH + LH [id number] 00:00:00* Test Item Value Reference Range Interpretation Comme nts FOLLICLE STIM HORMONE (test code = 2700) 42.3 IU/L LUTEINIZING HORMONE (test co de = 2776) 25.7 IU/L Dwayne Bah AustinFSH + LH [id number] 00:00:00* Test Item Value Reference Range Interpretation Comme nts FOLLICLE STIM HORMONE (test code = 2700) 42.3 IU/L LUTEINIZING HORMONE (test co de = 2776) 25.7 IU/L Dwayne Bah AustinFSH + LH [id number] 00:00:00* Test Item Value Reference Range Interpretation Comme nts FOLLICLE STIM HORMONE (test code = 2700) 42.3 IU/L LUTEINIZING HORMONE (test co de = 2776) 25.7 IU/L Dwayne Bah AustinFSH + LH [id number] 00:00:00* Test Item Value Reference Range Interpretation Comme nts FOLLICLE STIM HORMONE (test code = 2700) 42.3 IU/L LUTEINIZING HORMONE (test co de = 2776) 25.7 IU/L Dwayne Bah AustinFSH + LH [id number] 00:00:00* Test Item Value Reference Range Interpretation Comme nts FOLLICLE STIM HORMONE (test code = 2700) 42.3 IU/L LUTEINIZING HORMONE (test co de = 2776) 25.7 IU/L Dwayne Bah AustinFSH + LH [id number] 00:00:00* Test Item Value Reference Range Interpretation Comme nts FOLLICLE STIM HORMONE (test code = 2700) 42.3 IU/L LUTEINIZING HORMONE (test co de = 2776) 25.7 IU/L Dwayne Bah AustinFSH + LH [id number] 00:00:00* Test Item Value Reference Range Interpretation Comme nts FOLLICLE STIM HORMONE (test code = 2700) 42.3 IU/L LUTEINIZING HORMONE (test co de = 2776) 25.7 IU/L Dwayne Bah AustinFSH + LH [id number] 00:00:00* Test Item Value Reference Range Interpretation Comme nts FOLLICLE STIM HORMONE (test code = 2700) 42.3 IU/L LUTEINIZING HORMONE (test co de = 2776) 25.7 IU/L Dwayne Bah AustinFSH + LH [id number] 00:00:00* Test Item Value Reference Range Interpretation Comme nts FOLLICLE STIM HORMONE (test code = 2700) 42.3 IU/L LUTEINIZING HORMONE (test co de = 2776) 25.7 IU/L Dwayne MyersXR KNEE RIGHT 1 OR 2 VIEW *WW*2022-12-11 21:28:07 [facility] : 1970 Sex: FExam: Right [...] Alexey Ott MD 12/11/2022 9:28 PM CDT [id number] STIMULATING [id number] 17:34:00* Test Item Value Reference Range Interpretation Comme nts TSH (test code = 7346713931) 1.00 See_Comment Biotin has been reported to cause a negative bias, interpret results relative to patient's use of biotin. [Automated message] The system which generated this result transmitted reference range: 0.45 - 4.70 mIU/L. The reference range was not used to interpret this result as normal/abnormal. Lab Interpretation (test code = 79830-0) [facility] TylerTRCHARYNIN [id number] 14:56:35* Test Item Value Reference Range Interpretation Comme nts TROPONIN I (test code = 3465707952) 0.009 ng/mL <=0.034 LUCILLE (test code = [...] of biotin. Lab Interpretation (test code = 59263-2) [facility] TylerTROPONIN [id number] 07:53:48* Test Item Value Reference Range Interpretation Comme nts TROPONIN I (test code = 1791239185) 0.004 ng/mL <=0.034 LUCILLE (test code = [...] of biotin. Lab Interpretation (test code = 33654-8) [facility] TylerN-TERMINAL [id number] 07:53:48* Test Item Value Reference Range Interpretation Comme nts NT-proBNP (test code = 8512737679) 61 pg/mL <=125 LUCILLE (test code = LUCILLE) Biotin has been reported to cause a negative bias, interpret results relative to patient's use of biotin. Lab Interpretation (test code = 90068-1) [facility] TylerCOMP. METABOLIC PANEL (25864)2022-11-05 07:41:51* Test Item Value Reference Range Interpretation Comme nts NA (test code = 3528242318) 139 mmol/L 135-145 K (test code = 5512258777) 4.4 mmol/L 3.5-5.0 CL (test code = 7558158125) 106 mmol/L 98-108 CO2 TOTAL (test code = 5644598284) 26 mmol/L 23-31 AGAP (test code = 2562799433) 7 2-16 BUN (test code = 8568564789) 9 mg/dL 7-23 GLUCOSE (test code = 9842272649) 100 mg/dL 70-110 CREATININE (test code = 2345379155) 0.86 mg/dL 0.50-1.04 TOTAL BILI (test code = 4037674158) 0.4 mg/dL 0.1-1.1 CALCIUM (test code = 4607612537) 9.1 mg/dL 8.6-10.6 T PROTEIN (test code = 6450652211) 6.8 g/dL 6.3-8.2 ALBUMIN (test code = 1477238761) 4.1 g/dL 3.5-5.0 ALK PHOS (test code = 4963724078) 74 U/L 34-122 ALTv (test code = 1742-6) 21 U/L 5-35 AST(SGOT) (test code = 6112279510) 23 U/L 13-40 eGFR (test code = 7153890637) 69.6 mL/min/1.73m2 LUCILLE (test code = LUCILLE) [...] urine or abnormalities in imaging tests). [facility] TylerPREGNANCY TEST, [id number] 07:39:46* Test Item Value Reference Range Interpretation Comme [facility] PREG SERUM (test code = 5288223506) Negative LUCILLE (test code = LUCILLE) Less than 10 IU/L. ?If low titer or ectopic is suspected, resubmit specimen in 48-72 hours. [facility] TylerACTIVATED PARTIAL THRMPLAS [id number] 07:39:31* Test Item Value Reference Range Interpretation Comme [facility] APTT Patient (test code = 3173-2) 27 See_Comment [Automated KupiKupon] The system which generated this result transmitted reference range: 26 - 36 Seconds. The reference range was not used to interpret this result as normal/abnormal. Lab Interpretation (test code = 24534-5) Normal [facility] TylerPROTHROMBIN TIME / [id number] 07:39:31* Test Item Value Reference Range Interpretation Comme [facility] PROTIME PATIENT (test code = 5964-2) 13.4 See_Comment H [Automated KupiKupon] The system which generated this result transmitted reference range: 10.1 - 12.6 Seconds. The reference range was not used to interpret this result as normal/abnormal. INR (test code = 6301-6) 1.2 Normal INR <1.1; Warfarin Therapeutic range 2.0 to 3.0 or 2.5 to 3.5, depending upon the indications. Lab Interpretation (test code = 22251-8) Abnormal [facility] [id number]-[id number] 07:39:31* Test Item Value Reference Range Interpretation Comments D-DIMER (test code = 7271863807) 1.06 See_Comment H [Automated message] The system [...] a diagnosis. Lab Interpretation (test code = 79572-5) Abnormal [facility] WITH [id number] 07:28:32* Test Item Value Reference Range Interpretation Comme nts WBC (test code = 6690-2) 6.53 See_Comment [Automated KupiKupon] The system which generated this result transmitted reference range: 4.30 - 11.10 10*3/?L. The reference range was not used to interpret this result as normal/abnormal. RBC (test code = 789-8) 4.97 See_Comment [Automated KupiKupon] The system which generated this result transmitted [...] 32.3 g/dL 31.6-35.1 RDW-SD (test code = 91853-2) 46.0 fL 39.0-49.9 RDW-CV (test code = 788-0) 15.6 % 12.0-15.5 H PLT (test code = 777-3) 272 See_Comment [Automated messa ge] The system which generated this result transmitted reference range: 166 - 358 10*3/?L. The reference range was not used to interpret this result as normal/abnormal. MPV (test code = 76857-6) 11.5 fL 9.5-12.9 NRBC/100 WBC (test code = 5092621501) 0.0 See_Comment [Automated me ssage] The system which generated this result transmitted reference range: 0.0 - 10.0 /100 WBCs. The reference range was not used to interpret this result as normal/abnormal. NRBC x10^3 (test code = 6031865594) See_Comment [Automated messa ge] The system which generated this result transmitted reference range: 10*3/?L. The reference range was not used to interpret this result as normal/abnormal. GRAN MAT (NEUT) % (test code = 770-8) 58.2 % IMM GRAN % (test code = 4976131024) 0.20 % LYMPH % (test code = 736-9) 31.1 % MONO % (test code = 5905-5) 9.3 % EOS % (test code = 713-8) 0.3 % BASO % (test code = 706-2) 0.9 % GRAN MAT x10^3(ANC) (test code = 6819900438) 3.80 10*3/uL 1.88-7.09 IMM GRAN x10^3 (test code = 6491250555) 0.00-0.06 LYMPH x10^3 (test code = 731-0) 2.03 10*3/uL 1.32-3.29 MONO x10^3 (test code = 742-7) 0.61 10*3/uL 0.33-0.92 EOS x10^3 (test code = 711-2) 0.03-0.39 L BASO x10^3 (test code = 704-7) 0.06 10*3/uL 0.01-0.07 Lab Interpretation (test code = 93609-0) [facility]normal [facility] TylerALBUMIN/CREATININE RATIO, URINE, RANDOM 2022-11-03 05:51:41* Test Item Value Reference Range Interpretation Comme nts CREATININE, URINE, CONC. (test code = 2072) 356.1 MG/DL NOT ESTAB ALBUMIN, URINE, RANDOM (test code = 27559) 2.0 MG/DL NOT ESTAB CALC ALBUMIN/CREAT, RND (test code = 36729) 6 MG/G <30 Note: Albumin/Cr eatinine ratio reference interval reflects ADA and NKF guidelines. [facility] has important pathology staff changes effective 11/01/2022. New pathology staff will provide uninterrupted, excellent patient care and clinical consultation. See URL: [email or web address]. UNLESS OTHERWISE INDICATED, ALL TESTING PERFORMED AT [facility] [address] [place] [address] INKER MACHINE: SADIQ VANEGAS M.D. [place] NUMBER [id number] [facility]. [id number] 05:26:24* Test Item Value Reference Range Interpretation Comme nts NT-proBNP (test code = 65130) <50 PG/ML SEE BELOW If NT-ProBNP is less than 300 PG/ML, heart failure is unlikely for allages. Age.................Heart Failure Likely <50 Years...........>=450 PG/ML 50-75 Years.........>=900 PG/ML > 75 Years..........>=1800 PG/ML Methodology: Lewis Raine Electrochemiluminescense Immunoassay [id number] 00:00:00* Test Item Value Reference Range Interpretation Comme nts NT-proBNP (test code = 35226) <50 PG/ML Dwayne Bah LouisALBUMIN/CREATININE RATIO, RANDOM [id number] 00:00:00* Test Item Value Reference Range Interpretation Comme nts CREATININE, URINE, CONC. (te st code = 2072) 356.1 MG/DL ALBUMIN, URINE, RANDOM (test code = 52781) 2.0 MG/DL CALC ALBUMIN/CREAT, RND (ector t code = 86136) 6 MG/G Dwayne MyersTwwaxmGL-[id number] 00:00:00* Test Item Value Reference Range Interpretation Comme nts NT-proBNP (test code = 10873) <50 PG/ML Dwayne F AustinALBUMIN/CREATININE RATIO, RANDOM [id number] 00:00:00* Test Item Value Reference Range Interpretation Comme nts CREATININE, URINE, CONC. (te st code = 2071) 356.1 MG/DL ALBUMIN, URINE, RANDOM (test code = 90422) 2.0 MG/DL CALC ALBUMIN/CREAT, RND (ector t code = 58291) 6 MG/G Dwayne F [id number]-[id number] 00:00:00* Test Item Value Reference Range Interpretation Comme nts NT-proBNP (test code = 49356) <50 PG/ML Dwayne F AustinALBUMIN/CREATININE RATIO, RANDOM [id number] 00:00:00* Test Item Value Reference Range Interpretation Comme nts CREATININE, URINE, CONC. (te st code = 2071) 356.1 MG/DL ALBUMIN, URINE, RANDOM (test code = 63096) 2.0 MG/DL CALC ALBUMIN/CREAT, RND (ector t code = 04575) 6 MG/G Dwayne F SedimuJS-[id number] 00:00:00* Test Item Value Reference Range Interpretation Comme nts NT-proBNP (test code = 43474) <50 PG/ML Dwayne F AustinALBUMIN/CREATININE RATIO, RANDOM [id number] 00:00:00* Test Item Value Reference Range Interpretation Comme nts CREATININE, URINE, CONC. (te st code = 207) 356.1 MG/DL ALBUMIN, URINE, RANDOM (test code = 57356) 2.0 MG/DL CALC ALBUMIN/CREAT, RND (ector t code = 55000) 6 MG/G Dwayne F [id number] 00:00:00* Test Item Value Reference Range Interpretation Comme nts NT-proBNP (test code = 70032) <50 PG/ML Dwayne F AustinALBUMIN/CREATININE RATIO, RANDOM [id number] 00:00:00* Test Item Value Reference Range Interpretation Comme nts CREATININE, URINE, CONC. (te st code = 207) 356.1 MG/DL ALBUMIN, URINE, RANDOM (test code = 57220) 2.0 MG/DL CALC ALBUMIN/CREAT, RND (ector t code = 47603) 6 MG/G Wdayne F [id number]-[id number] 00:00:00* Test Item Value Reference Range Interpretation Comme nts NT-proBNP (test code = 68474) <50 PG/ML Dwayne F AustinALBUMIN/CREATININE RATIO, RANDOM [id number] 00:00:00* Test Item Value Reference Range Interpretation Comme nts CREATININE, URINE, CONC. (te st code = 2072) 356.1 MG/DL ALBUMIN, URINE, RANDOM (test code = 48110) 2.0 MG/DL CALC ALBUMIN/CREAT, RND (ector t code = 99573) 6 MG/G Dwayne Bah ToctlcZB-[id number] 00:00:00* Test Item Value Reference Range Interpretation Comme nts NT-proBNP (test code = 68940) <50 PG/ML Dwayne F AustinALBUMIN/CREATININE RATIO, RANDOM [id number] 00:00:00* Test Item Value Reference Range Interpretation Comme nts CREATININE, URINE, CONC. (te st code = 207) 356.1 MG/DL ALBUMIN, URINE, RANDOM (test code = 11918) 2.0 MG/DL CALC ALBUMIN/CREAT, RND (ector t code = 46078) 6 MG/G Dwayne Bah OrxubcQK-[id number] 00:00:00* Test Item Value Reference Range Interpretation Comme nts NT-proBNP (test code = 03806) <50 PG/ML Dwayne Bah AustinALBUMIN/CREATININE RATIO, RANDOM [id number] 00:00:00* Test Item Value Reference Range Interpretation Comme nts CREATININE, URINE, CONC. (te st code = 207) 356.1 MG/DL ALBUMIN, URINE, RANDOM (test code = 19263) 2.0 MG/DL CALC ALBUMIN/CREAT, RND (ector t code = 30652) 6 MG/G Dwayne F BiioioUG-[id number] 00:00:00* Test Item Value Reference Range Interpretation Comme nts NT-proBNP (test code = 77806) <50 PG/ML Dwayne F AustinALBUMIN/CREATININE RATIO, RANDOM [id number] 00:00:00* Test Item Value Reference Range Interpretation Comme nts CREATININE, URINE, CONC. (te st code = 207) 356.1 MG/DL ALBUMIN, URINE, RANDOM (test code = 97687) 2.0 MG/DL CALC ALBUMIN/CREAT, RND (ector t code = 04894) 6 MG/G Dwayne MyersCOMPREHENSIVE METABOLIC [id number] 06:45:27* Test Item Value Reference Range Interpretation Comme nts GLUCOSE (test code = 2217) 126 MG/DL 70-99 H BUN (test code = 2207) 12 MG/DL 6-20 CREATININE (test code = 221) 1.24 MG/DL 0.60-1.30 eGFR (2020 CKD-EPI) (test code = 36302) 53 ML/MIN/1.73 >60 L The NKF-ASN Taskforce recommends use of Cystatin C to confirm eGFR inadults at risk for CKD. [facility] offers eGFR with Cystatin C-Creatinineusing the 2020 CKD-EPI eGFR_creat-cystat equation (order code 3057) toincrease the accuracy of estimated GFR. For more information, contactyour customer account representative or see announcement [email or web address] CALC BUN/CREAT (test code = 2234) 10 RATIO 6-28 SODIUM (test code = 223) 144 MEQ/L 133-146 POTASSIUM (test code = 2228) 4.0 MEQ/L 3.5-5.4 CHLORIDE (test code = 2215) 110 MEQ/L 95-107 H CARBON DIOXIDE (test code = 2206) 18 MEQ/L 19-31 L CALCIUM (test code = 220) 9.3 MG/DL 8.5-10.5 PROTEIN, TOTAL (test code = 222) 6.7 G/DL 6.1-8.3 ALBUMIN (test code = 220) 4.3 G/DL 3.5-5.2 CALC GLOBULIN (test code = 2240) 2.4 G/DL 1.9-3.7 CALC A/G RATIO (test code = 223) 1.8 RATIO 1.0-2.6 BILIRUBIN, TOTAL (test code = 220) 0.3 MG/DL See_Comment [Automated me ssage] The system which generated this result transmitted reference range: <=1.2. The reference range was not used to interpret this result as normal/abnormal. ALKALINE PHOSPHATASE (test code = 2203) 77 U/L 40-130 AST (test code = 2218) 16 U/L 9-40 ALT (test code = 2219) 15 U/L 5-40 LIPID [id number] 06:45:27* Test Item Value Reference Range Interpretation [...] SPECIMENS. FOR MOREINFORMATION, SEE CLIENT ANNOUNCEMENT AT [email or web address] [email or web address] RATIO LDL/HDL (test code = 2238) 2.28 RATIO <3.22 HEMOGLOBIN [id number] 02:34:56* Test Item Value Reference Range Interpretation Comme nts HEMOGLOBIN A1c (test code = 13382) 6.4 % 4.2-5.6 H UNLESS OTHERWISE INDICATED, ALL TESTING PERFORMED [facility] [address] [place] [address] INKER MACHINE: SADIQ VANEGAS M.D. CLIA NUMBER [id number] [facility]. [id number] COMPREHENSIVE METABOLIC [id number] 00:00:00* Test Item Value Reference Range Interpretation Comme nts GLUCOSE (test code = 2217) 126 MG/DL BUN (test code = 2208) 12 MG/DL CREATININE (test code = 2214) 1.24 MG/DL eGFR (2020 CKD-EPI) (test co de = 41413) 53 ML/MIN/1.73 CALC BUN/CREAT (test code = [...] (test code = 2219) 15 U/L LIPID [id number] 00:00:00* Test Item Value Reference Range Interpretation Comme nts CHOLESTEROL (test code = 2210) 182 MG/DL TRIGLYCERIDES (test code = 2232) 82 MG/DL HDL CHOLESTEROL (test code = 2220) 50 MG/DL CALC LDL CHOL (test code = 2237) 114 MG/DL RISK RATIO LDL/HDL (test cod e = 2238) 2.28 RATIO HEMOGLOBIN [id number] 00:00:00* Test Item Value Reference Range Interpretation Comme nts HEMOGLOBIN A1c (test code = 53595) 6.4 % COMPREHENSIVE METABOLIC [id number] 00:00:00* Test Item Value Reference Range Interpretation Comme nts GLUCOSE (test code = 2217) 126 MG/DL BUN (test code = 2208) 12 MG/DL CREATININE (test code = 2214) 1.24 MG/DL eGFR (2020 CKD-EPI) (test co de = 12269) 53 ML/MIN/1.73 CALC BUN/CREAT (test code = [...] code = 2219) 15 U/L Dwayne MyersLIPID [id number] 00:00:00* Test Item Value Reference Range Interpretation Comme nts CHOLESTEROL (test code = 2210) 182 MG/DL TRIGLYCERIDES (test code = 2232) 82 MG/DL HDL CHOLESTEROL (test code = 2220) 50 MG/DL CALC LDL CHOL (test code = 2237) 114 MG/DL RISK RATIO LDL/HDL (test cod e = 2238) 2.28 RATIO Dwayne MyersHEMOGLOBIN [id number] 00:00:00* Test Item Value Reference Range Interpretation Comme nts HEMOGLOBIN A1c (test code = 65117) 6.4 % Dwayne MyersCOMPREHENSIVE METABOLIC [id number] 00:00:00* Test Item Value Reference Range Interpretation Comme nts GLUCOSE (test code = 2217) 126 MG/DL BUN (test code = 2208) 12 MG/DL CREATININE (test code = 2214) 1.24 MG/DL eGFR (2020 CKD-EPI) (test co de = 17055) 53 ML/MIN/1.73 CALC BUN/CREAT (test code = [...] code = 2219) 15 U/L Dwayne MyersLIPID [id number] 00:00:00* Test Item Value Reference Range Interpretation Comme nts CHOLESTEROL (test code = 2210) 182 MG/DL TRIGLYCERIDES (test code = 2232) 82 MG/DL HDL CHOLESTEROL (test code = 2220) 50 MG/DL CALC LDL CHOL (test code = 2237) 114 MG/DL RISK RATIO LDL/HDL (test cod e = 2238) 2.28 RATIO Dwayne Bah AustinHEMOGLOBIN [id number] 00:00:00* Test Item Value Reference Range Interpretation Comme nts HEMOGLOBIN A1c (test code = 77526) 6.4 % Dwayne Bah AustinCOMPREHENSIVE METABOLIC [id number] 00:00:00* Test Item Value Reference Range Interpretation Comme nts GLUCOSE (test code = 2217) 126 MG/DL BUN (test code = 2208) 12 MG/DL CREATININE (test code = 2214) 1.24 MG/DL eGFR (2020 CKD-EPI) (test co de = 81194) 53 ML/MIN/1.73 CALC BUN/CREAT (test code = [...] = 2219) 15 U/L Dwayne Bah AustinLIPID [id number] 00:00:00* Test Item Value Reference Range Interpretation Comme nts CHOLESTEROL (test code = 2210) 182 MG/DL TRIGLYCERIDES (test code = 2232) 82 MG/DL HDL CHOLESTEROL (test code = 2220) 50 MG/DL CALC LDL CHOL (test code = 2237) 114 MG/DL RISK RATIO LDL/HDL (test cod e = 2238) 2.28 RATIO Dwayne MyersHEMOGLOBIN [id number] 00:00:00* Test Item Value Reference Range Interpretation Comme nts HEMOGLOBIN A1c (test code = 23132) 6.4 % Dwayne Bah AustinCOMPREHENSIVE METABOLIC [id number] 00:00:00* Test Item Value Reference Range Interpretation Comme nts GLUCOSE (test code = 2217) 126 MG/DL BUN (test code = 2208) 12 MG/DL CREATININE (test code = 2214) 1.24 MG/DL eGFR (2020 CKD-EPI) (test co de = 71302) 53 ML/MIN/1.73 CALC BUN/CREAT (test code = [...] code = 2219) 15 U/L Dwayne MyersLIPID [id number] 00:00:00* Test Item Value Reference Range Interpretation Comme nts CHOLESTEROL (test code = 2210) 182 MG/DL TRIGLYCERIDES (test code = 2232) 82 MG/DL HDL CHOLESTEROL (test code = 2220) 50 MG/DL CALC LDL CHOL (test code = 2237) 114 MG/DL RISK RATIO LDL/HDL (test cod e = 2238) 2.28 RATIO Dwayne MyersHEMOGLOBIN [id number] 00:00:00* Test Item Value Reference Range Interpretation Comme nts HEMOGLOBIN A1c (test code = 52711) 6.4 % Dwayne MyersCOMPREHENSIVE METABOLIC [id number] 00:00:00* Test Item Value Reference Range Interpretation Comme nts GLUCOSE (test code = 2217) 126 MG/DL BUN (test code = 2208) 12 MG/DL CREATININE (test code = 2214) 1.24 MG/DL eGFR (2020 CKD-EPI) (test co de = 65063) 53 ML/MIN/1.73 CALC BUN/CREAT (test code = [...] code = 2219) 15 U/L Dwayne MyersLIPID [id number] 00:00:00* Test Item Value Reference Range Interpretation Comme nts CHOLESTEROL (test code = 2210) 182 MG/DL TRIGLYCERIDES (test code = 2232) 82 MG/DL HDL CHOLESTEROL (test code = 2220) 50 MG/DL CALC LDL CHOL (test code = 2237) 114 MG/DL RISK RATIO LDL/HDL (test cod e = 2238) 2.28 RATIO Dwayne MyersHEMOGLOBIN [id number] 00:00:00* Test Item Value Reference Range Interpretation Comme nts HEMOGLOBIN A1c (test code = 56746) 6.4 % Dwayne MyersCOMPREHENSIVE METABOLIC [id number] 00:00:00* Test Item Value Reference Range Interpretation Comme nts GLUCOSE (test code = 2217) 126 MG/DL BUN (test code = 2208) 12 MG/DL CREATININE (test code = 2214) 1.24 MG/DL eGFR (2020 CKD-EPI) (test co de = 93605) 53 ML/MIN/1.73 CALC BUN/CREAT (test code = [...] code = 2219) 15 U/L Dwayne MyersLIPID [id number] 00:00:00* Test Item Value Reference Range Interpretation Comme nts CHOLESTEROL (test code = 2210) 182 MG/DL TRIGLYCERIDES (test code = 2232) 82 MG/DL HDL CHOLESTEROL (test code = 2220) 50 MG/DL CALC LDL CHOL (test code = 2237) 114 MG/DL RISK RATIO LDL/HDL (test cod e = 2238) 2.28 RATIO Dwayne MyersHEMOGLOBIN [id number] 00:00:00* Test Item Value Reference Range Interpretation Comme vivek HEMOGLOBIN A1c (test code = 03199) 6.4 % Dwayne MyersCOMPREHENSIVE METABOLIC [id number] 00:00:00* Test Item Value Reference Range Interpretation Comme nts GLUCOSE (test code = 2217) 126 MG/DL BUN (test code = 2208) 12 MG/DL CREATININE (test code = 2214) 1.24 MG/DL eGFR (2020 CKD-EPI) (test co de = 62004) 53 ML/MIN/1.73 CALC BUN/CREAT (test code = [...] code = 2219) 15 U/L Dwayne MyersLIPID [id number] 00:00:00* Test Item Value Reference Range Interpretation Comme nts CHOLESTEROL (test code = 2210) 182 MG/DL TRIGLYCERIDES (test code = 2232) 82 MG/DL HDL CHOLESTEROL (test code = 2220) 50 MG/DL CALC LDL CHOL (test code = 2237) 114 MG/DL RISK RATIO LDL/HDL (test cod e = 2238) 2.28 RATIO Dwayne MyersHEMOGLOBIN [id number] 00:00:00* Test Item Value Reference Range Interpretation Comme nts HEMOGLOBIN A1c (test code = 88966) 6.4 % Dwayne MyersCOMPREHENSIVE METABOLIC [id number] 00:00:00* Test Item Value Reference Range Interpretation Comme nts GLUCOSE (test code = 2217) 126 MG/DL BUN (test code = 2208) 12 MG/DL CREATININE (test code = 2214) 1.24 MG/DL eGFR (2020 CKD-EPI) (test co de = 63819) 53 ML/MIN/1.73 CALC BUN/CREAT (test code = [...] code = 2219) 15 U/L Dwayne MyersLIPID [id number] 00:00:00* Test Item Value Reference Range Interpretation Comme nts CHOLESTEROL (test code = 2210) 182 MG/DL TRIGLYCERIDES (test code = 2232) 82 MG/DL HDL CHOLESTEROL (test code = 2220) 50 MG/DL CALC LDL CHOL (test code = 2237) 114 MG/DL RISK RATIO LDL/HDL (test cod e = 2238) 2.28 RATIO Dwayne MyersHEMOGLOBIN [id number] 00:00:00* Test Item Value Reference Range Interpretation Comme nts HEMOGLOBIN A1c (test code = 26152) 6.4 % Dwayne MyersCOMPREHENSIVE METABOLIC [id number] 00:00:00* Test Item Value Reference Range Interpretation Comme nts GLUCOSE (test code = 2217) 126 MG/DL BUN (test code = 2208) 12 MG/DL CREATININE (test code = 2214) 1.24 MG/DL eGFR (2020 CKD-EPI) (test co de = 30979) 53 ML/MIN/1.73 CALC BUN/CREAT (test code = [...] = 2219) 15 U/L Dwayne Bah AustinLIPID [id number] 00:00:00* Test Item Value Reference Range Interpretation Comme nts CHOLESTEROL (test code = 2210) 182 MG/DL TRIGLYCERIDES (test code = 2232) 82 MG/DL HDL CHOLESTEROL (test code = 2220) 50 MG/DL CALC LDL CHOL (test code = 2237) 114 MG/DL RISK RATIO LDL/HDL (test cod e = 2238) 2.28 RATIO Dwayne F AustinHEMOGLOBIN [id number] 00:00:00* Test Item Value Reference Range Interpretation Comme nts HEMOGLOBIN A1c (test code = 98774) 6.4 % Dwayne MyersC-ARM<1 HR W IMAGES*WW*2022-08-17 13:28:04 [facility] 1970 Sex: FFLUOROSCOPYCLINICAL HISTORY: Surgical procedure Comments: Intraoperative fluoroscopy services were provided. A radiologist was not present for the procedure. Selected images demonstrate bilateral needle placement in the lower lumbar spine. Total fluoroscopy time: 3.8 seconds. Image count: 2IMPRESSION: Fluoroscopyservices provided. Please see separate operative report for detailed findings.Location: [id number] signed by: Dane Ann MD 08/17/2022 1:28 PM [facility] [id number] URINE MONOCLONAL *WW*2022-08-17 13:05:00* Test Item Value Reference Range Interpretation Comme nts PREG UR (test code = PGU) NEGATIVE NEGATIVE [id number] 20:14:57* Test Item Value Reference Range Interpretation Comme nts MAGNESIUM (test code = 3454506204) 1.7 mg/dL 1.7-2.4 Lab Interpretation (test cod e = 82533-5) [facility] Tyler[facility] ([facility] 18:53:16* Test Item Value Reference Range Interpretation Comme nts Height (test code = 3695750297) in Weight (test code = 6234054095) lbs Systolic BP (test code = 8620329352) mmHg Diastolic BP (test code = 7074861259) mmHg Heart Rate (test code = 2485394947) bpm BSA (test code = 5892533753) 2.00 m2 Radiology Study observation (narrative) (test code = 05759-4) LUCILLE (test code = LUCILLE) ?Left?Ventricle: Left [...] limited echocardiogram was performed using 2D. [facility] TylerN-TERMINAL [id number] 03:58:31* Test Item Value Reference Range Interpretation Comme nts NT-proBNP (test code = 6746061497) 580 pg/mL See_Comment H [Automated message] The system which generated this result transmitted reference range: <=125. The reference range was not used to interpret this result as normal/abnormal. LUCILLE (test code = LUCILLE) Biotin has been reported to cause a negative bias, interpret results relative to patient's use of biotin. Lab Interpretation (test code = 30523-6) [facility] TylerTROPONIN [id number] 03:21:06* Test Item Value Reference Range Interpretation Comments TROPONIN I (test code = 4938893164) 0.013 ng/mL See_Comment [Automated message] The system [...] of biotin. Lab Interpretation (test code = 54087-6) [facility] TylerPREGNANCY TEST, [id number] 03:20:56* Test Item Value Reference Range Interpretation Comme nts PREG SERUM (test code = 2437767503) Negative LUCILLE (test code = LUCILLE) Less than 10 IU/L. ?If low titer or ectopic is suspected, resubmit specimen in 48-72 hours. [facility]. METABOLIC PANEL (63573)2022-07-26 03:09:22* Test Item Value Reference Range Interpretation Comme nts NA (test code = 1800312397) 137 mmol/L 135-145 K (test code = 7131348412) 4.5 mmol/L 3.5-5.0 CL (test code = 1006520530) 106 mmol/L 98-108 CO2 TOTAL (test code = 9064990987) 21 mmol/L 23-31 L AGAP (test code = 7270398173) 2-16 BUN (test code = 0506153959) 19 mg/dL 7-23 GLUCOSE (test code = 6690890958) 154 mg/dL 70-110 H CREATININE (test code = 7532355039) 0.97 mg/dL 0.50-1.04 TOTAL BILI (test code = 6423364585) 0.3 mg/dL 0.1-1.1 CALCIUM (test code = 2261469464) 9.6 mg/dL 8.6-10.6 T PROTEIN (test code = 2935811374) 6.8 g/dL 6.3-8.2 ALBUMIN (test code = 0431823977) 4.1 g/dL 3.5-5.0 ALK PHOS (test code = 5467465706) 144 U/L 34-122 H ALTv (test code = 1742-6) 41 U/L 5-35 H AST(SGOT) (test code = 4871491674) 24 U/L 13-40 eGFR (test code = 5100754342) mL/min/1.73m2 LUCILLE (test code = LUCILLE) Association [...] imaging tests). Lab Interpretation (test code = 89916-4) [facility] TylerD-[id number] 03:06:05* Test Item Value Reference Range Interpretation Comments D-DIMER (test code = 6689735934) See_Comment H [Automated message] The system which [...] a diagnosis. Lab Interpretation (test code = 26277-1) Abnormal [facility] WITH [id number] 02:34:21* Test Item Value Reference Range Interpretation Comme nts WBC (test code = 6690-2) See_Comment H [Automated KupiKupon] The system which generated this result transmitted reference range: 4.30 - 11.10 10*3/?L. The reference range was not used to interpret this result as normal/abnormal. RBC (test code = 789-8) See_Comment [Automated KupiKupon] The system which generated this result transmitted [...] 32.2 g/dL 31.6-35.1 RDW-SD (test code = 26188-0) 48.4 fL 39.0-49.9 RDW-CV (test code = 788-0) 16.6 % 12.0-15.5 H PLT (test code = 777-3) See_Comment [Automated KupiKupon] The system which generated this result transmitted reference range: 166 - 358 10*3/?L. The reference range was not used to interpret this result as normal/abnormal. MPV (test code = 59489-7) 10.4 fL 9.5-12.9 NRBC/100 WBC (test code = 6103679319) See_Comment [Automated me ssage] The system which generated this result transmitted reference range: 0.0 - 10.0 /100 WBCs. The reference range was not used to interpret this result as normal/abnormal. NRBC x10^3 (test code = 1811223930) See_Comment [Automated messa ge] The system which generated this result transmitted reference range: 10*3/?L. The reference range was not used to interpret this result as normal/abnormal. GRAN MAT (NEUT) % (test code = 770-8) 85.4 % IMM GRAN % (test code = 4678897308) 2.00 % LYMPH % (test code = 736-9) 9.9 % MONO % (test code = 5905-5) 1.9 % EOS % (test code = 713-8) 0.3 % BASO % (test code = 706-2) 0.5 % GRAN MAT x10^3(ANC) (test code = 6157223785) 9.84 10*3/uL 1.88-7.09 H IMM GRAN x10^3 (test code = 2275029624) 0.23 10*3/uL 0.00-0.06 H LYMPH x10^3 (test code = 731-0) 1.14 10*3/uL 1.32-3.29 L MONO x10^3 (test code = 742-7) 0.22 10*3/uL 0.33-0.92 L EOS x10^3 (test code = 711-2) 0.03 10*3/uL 0.03-0.39 BASO x10^3 (test code = 704-7) 0.06 10*3/uL 0.01-0.07 Lab Interpretation (test code = 15414-7) Abnormal [facility] [id number] 02:25:00* Test Item Value Reference Range Interpretation Comme nts POCT PREG (test code = 1605) Negative On board controls acceptable with C Line (test code = 3574) Present POCT PREG LOT # (test code = 3575) [id number] POCT PREG TEST DATE ( test code = 3576) 12/02/2023 Lab Interpretation (test cod e = 74401-3) [facility] TylerPREGNANCY URINE MONOCLONAL *WW*2022-07-20 14:10:00* Test Item Value Reference Range Interpretation Comme nts PREG UR (test code = PGU) NEGATIVE NEGATIVE Troponin [id number] 11:14:56* Test Item Value Reference Range Interpretation Comments TROPONIN I (test code = 7482608628) 0.035 ng/mL See_Comment H Hemolyzed specimen [Automated [...] of biotin. Lab Interpretation (test code = 88883-8) [facility] TylerDIRECT STREP GROUP [id number] 10:18:00* Test Item Value Reference Range Interpretation Comme nts Culture Observations (test code = COB1) NO BETA HEMOLYTIC STREPTOCOCCUS ISOLATED Direct Exam (test code = DE3) NEGATIVE FOR STREP A ANTIGEN BLOOD [id number] 07:35:00* Test Item Value Reference Range Interpretation Comments Culture Observations (test code = COB1) POSITIVE BLOOD CULTURE Culture Observations (test code = COB2) 1 OF 4 BOTTLES Isolate 1 (test code = ISO1) Coagulase negative staphylococcus POSSIBLE CONTAMINANTIF SUSCEPTIBILITY NEEDED, PLEASE NOTIFY MICRO WITHIN [address] CHEST W/O [id number] 21:52:03 [facility] [place] [place] : 1970 Sex: FEXAMINATION:CTCHEST [...] Fidencio Thurston MD 06/23/2022 9:52 PM CDT [id number] 21:26:00* Test Item Value Reference Range Interpretation Comme nts PROCALCITONIN (test code = PCT) 0.13 ng/mL 0.00-0.24 PROCALCITONIN REF (test code = PCTH) PROCALCITONIN REFERENCE RANGE < 0.25 ng/mL suggests viral infection on day of admission 0.25-0.5 ng/mL young zone >0.5 ng/mL is highly suggestive of bacterial infection BRAIN NATRIURETIC [id number] 21:04:00* Test Item Value Reference Range Interpretation Comme nts BNP (test code = A74) 24 pg/mL See_Comment [Automated messa ge] The system which generated this result transmitted reference range: <=100. The reference range was not used to interpret this result as normal/abnormal. DIRECT INFLUENZA A AND B [id number] 21:00:00* Test Item Value Reference Range Interpretation [...] the FDA and the [employer] (CAP) are more stringent than those required for this test. Therefore, the result should be interpreted with caution and close attention to other clinical and epidemiological data COMPREHENSIVE METABOLIC [id number] 20:46:00* Test Item Value Reference Range Interpretation [...] code = 31A) 68 IU/L 10-49 H [id number] 20:46:00* Test Item Value Reference Range Interpretation Comme nts MAGNESIUM (test code = 48A) 2.1 mg/dL 1.6-2.6 TROPONIN [id number] 20:46:00* Test Item Value Reference Range Interpretation Comme nts TROPONIN I (test code = A84) 8.36 pg/mL 0.00-45.20 CBC WITH [id number] 20:44:00* Test Item Value Reference Range Interpretation [...] MICRO) 1+ NONE A PRO TIME AND [id number] 20:43:00* Test Item Value Reference Range Interpretation [...] or LMW Heparin. Order Code is ANTI-XA [id number] 20:43:00* Test Item Value Reference Range Interpretation Comme nts D-DIMER (test code = DDI) 286 ng/mL D-DU 0-234 H D-DIMER COMMENT (test code = DDCOM) *Level to rule out DVT or PE: <235 ng/mL D-DU* SERUM [id number] 20:40:00* Test Item Value Reference Range Interpretation Comme nts PREG SRM (test code = PGS) NEGATIVE NEGATIVE LACTIC [id number] 20:17:00* Test Item Value Reference Range Interpretation Comme nts LACTIC ACD (test code = LA) 0.9 mmol/L 0.4-2.0 XR CHEST 1 VIEW [id number] 20:05:47 [facility] : 1970 Sex: FLocation code: E0Owafi 1 viewIndication: Dyspnea.Comparison: 06/21/2022Findings:The heart and mediastinum are not remarkable.Costophrenic angles are clear.Elevation of the right hemidiaphragm and small right basilar atelectasis.ACDF lower cervical spineImpression:1. No change. Elevation the right hemidiaphragm and small right basilar atelectasisElectronically signed by: Bucky Keith MD 06/23/2022 8:05 PM CDT CRMLW *WW*2022-06-22 05:27:00* Test Item Value Reference Range [...] [facility] [place] ORDONE[facility] : 1970 Sex: FEXAMINATION:CTCHEST [...] MD 06/21/2022 10:47 PM CDT MB FRACTION 2022-06-21 22:00:00* Test Item Value Reference Range [...] the FDA and the [employer] (CAP) are more stringent than those required for this test. Therefore, the result should be interpreted with caution and close attention to other clinical and epidemiological data DIRECT INFLUENZA A AND B [id number] 20:50:00* Test Item Value Reference Range Interpretation Comme nts Direct Exam (test code = DE3) PRESUMPTIVE NEGATIVE FOR THE PRESENCE OF INFLUENZA ANTIGEN XR CHEST 1 VIEW PORTABLE *WW*2022-06-21 20:39:36 [facility] : 1970 Sex: FEXAMINATION:XRCHEST 1 [...] Fidencio Thurston MD 06/21/2022 8:39 PM CDT [id number] NATRIURETIC PEPTIDE 2022-06-21 20:38:00* Test Item Value Reference Range Interpretation Comme nts BNP (test code = A74) 22 pg/mL See_Comment [Automated WhoWantsMea ge] The system which generated this result transmitted reference range: <=100. The reference range was not used to interpret this result as normal/abnormal. SERUM MONOCLONAL *WW*2022-06-21 20:27:00* Test Item Value Reference Range Interpretation Comme nts PREG SRM (test code = PGS) NEGATIVE NEGATIVE C-ARM<1 HR W IMAGES2022-06-15 16:54:53 [facility] : 1970 Sex: FFluoroscopyLocation Code: [id number] HISTORY: Surgical procedureComments: Fluoroscopy was provided during [...] NEGATIVE NEGATIVE C-ARM<1 HR W IMAGES*WW*2022-05-12 08:26:58 [facility] : 1970 Sex: FClinical history: [...] Alexey Ott MD 05/12/2022 8:26 AM CDT [id number] URINE MONOCLONAL *WW*2022-05-11 12:51:00* Test Item Value Reference Range Interpretation Comme nts PREG UR (test code = PGU) NEGATIVE NEGATIVE C-ARM<1 HR W IMAGES*WW*2022-04-06 16:03:45 [facility] [place] ORD[facility] : 1970 Sex: FFluoroscopyLocation Code: [id number] HISTORY: Neck painComments: Fluoroscopy was provided during bilateral medial branch block. Approximately fluoroscopy time was 5.0 seconds. 2 fluoroscopic spot images were taken.IMPRESSION: Fluoroscopy services provided. Please see operative report for full details.Electronically signed by: Iglesia Garvey MD 04/06/2022 4:03 PM CDT [id number] URINE MONOCLONAL *WW*2022-04-06 12:39:00* Test Item Value Reference Range Interpretation Comme nts PREG UR (test code = PGU) NEGATIVE NEGATIVE Basic Metabolic Panel (NA, K, CL, CO2, GLUCOSE, BUN, CREATININE, CA)2022-02-26 09:48:31* Test Item Value Reference Range Interpretation Comme nts NA (test code = 9923974927) 143 mmol/L 135-145 K (test code = 8526619700) 3.5 mmol/L 3.5-5.0 CL (test code = 7407456264) 114 mmol/L 98-108 H CO2 TOTAL (test code = 8692622884) 24 mmol/L 23-31 AGAP (test code = 4751361520) 2-16 BUN (test code = 8466215142) 9 mg/dL 7-23 GLUCOSE (test code = 1036365020) 96 mg/dL 70-110 CREATININE (test code = 1233567599) 0.92 mg/dL 0.50-1.04 CALCIUM (test code = 1850236996) 8.1 mg/dL 8.6-10.6 L eGFR (test code = 3371281673) mL/min/1.73m2 LUCILLE (test code = LUCILLE) Association [...] imaging tests). Lab Interpretation (test code = 30018-9) Abnormal [facility] with [id number] 09:36:32* Test Item Value Reference Range Interpretation Comme nts WBC (test code = 6690-2) See_Comment [Automated KupiKupon] The system which generated this result transmitted reference range: 4.30 - 11.10 10*3/?L. The reference range was not used to interpret this result as normal/abnormal. RBC (test code = 789-8) See_Comment [Automated KupiKupon] The system which generated this result transmitted [...] g/dL 31.6-35.1 L RDW-SD (test code = 10474-4) 46.8 fL 39.0-49.9 RDW-CV (test code = 788-0) 16.7 % 12.0-15.5 H PLT (test code = 777-3) See_Comment [Automated messa ge] The system which generated this result transmitted reference range: 166 - 358 10*3/?L. The reference range was not used to interpret this result as normal/abnormal. MPV (test code = 58831-4) 10.8 fL 9.5-12.9 NRBC/100 WBC (test code = 0512099980) See_Comment [Automated Anesco ssage] The system which generated this result transmitted reference range: 0.0 - 10.0 /100 WBCs. The reference range was not used to interpret this result as normal/abnormal. NRBC x10^3 (test code = 5690880528) <0.01 See_Comment [Automated messa ge] The system which generated this result transmitted reference range: 10*3/?L. The reference range was not used to interpret this result as normal/abnormal. GRAN MAT (NEUT) % (test code = 770-8) 54.4 % IMM GRAN % (test code = 0522243483) 0.20 % LYMPH % (test code = 736-9) 31.5 % MONO % (test code = 5905-5) 8.7 % EOS % (test code = 713-8) 3.2 % BASO % (test code = 706-2) 2.0 % GRAN MAT x10^3(ANC) (test code = 4585089101) 2.69 10*3/uL 1.88-7.09 IMM GRAN x10^3 (test code = 1923499174) <0.03 0.00-0.06 LYMPH x10^3 (test code = 731-0) 1.56 10*3/uL 1.32-3.29 MONO x10^3 (test code = 742-7) 0.43 10*3/uL 0.33-0.92 EOS x10^3 (test code = 711-2) 0.16 10*3/uL 0.03-0.39 BASO x10^3 (test code = 704-7) 0.10 10*3/uL 0.01-0.07 H Lab Interpretation (test code = 17639-9) [facility] TylerTR[facility] [id number] 04:00:15* Test Item Value Reference Range Interpretation Comments TROPONIN I (test code = 8689728864) 0.004 ng/mL See_Comment [Automated message] The system [...] of biotin. Lab Interpretation (test code = 15026-0) [facility] TylerN-TERMINAL [id number] 04:00:15* Test Item Value Reference Range Interpretation Comme nts NT-proBNP (test code = 5567309376) 42 pg/mL See_Comment [Automated message] The system which generated this result transmitted reference range: <=125. The reference range was not used to interpret this result as normal/abnormal. LUCILLE (test code = LUCILLE) Biotin has been reported to cause a negative bias, interpret results relative to patient's use of biotin. Lab Interpretation (test code = 04830-5) [facility]OL[facility] (03053)2022-02-26 03:48:34* Test Item Value Reference Range Interpretation Comme nts NA (test code = 2394219888) 142 mmol/L 135-145 K (test code = 3366917207) 3.6 mmol/L 3.5-5.0 Slight hemolysis CL (test code = 4878316437) 109 mmol/L 98-108 H CO2 TOTAL (test code = 1348293810) 26 mmol/L 23-31 AGAP (test code = 4466878500) 2-16 BUN (test code = 0907179925) 10 mg/dL 7-23 Slight hemolysis GLUCOSE (test code = 0435186516) 84 mg/dL 70-110 CREATININE (test code = 4171532993) 0.99 mg/dL 0.50-1.04 TOTAL BILI (test code = 1655120264) 0.4 mg/dL 0.1-1.1 CALCIUM (test code = 1635787945) 8.9 mg/dL 8.6-10.6 T PROTEIN (test code = 6630775248) 6.5 g/dL 6.3-8.2 ALBUMIN (test code = 5800801739) 4.0 g/dL 3.5-5.0 ALK PHOS (test code = 6103917081) 71 U/L 34-122 Slight hemolysis ALTv (test code = 1742-6) 18 U/L 5-35 AST(SGOT) (test code = 7949917019) 25 U/L 13-40 Slight hemolysis eGFR (test code = 2300157356) mL/min/1.73m2 LUCILLE (test code = LUCILLE) Association [...] imaging tests). Lab Interpretation (test code = 82626-7) [facility]:34* Test Item Value Reference Range Interpretation Comme nts LIPASE (test code = 3321586701) 166 U/L 0-220 Lab Interpretation (test cod e = 33722-1) Normal [facility] WITH [id number] 03:34:33* Test Item Value Reference Range Interpretation Comme nts WBC (test code = 6690-2) See_Comment [Automated [employer]] The system which generated this result transmitted reference range: 4.30 - 11.10 10*3/?L. The reference range was not used to interpret this result as normal/abnormal. RBC (test code = 789-8) See_Comment [[employer]] The system which generated this result transmitted [...] g/dL 31.6-35.1 L RDW-SD (test code = 88310-5) 47.2 fL 39.0-49.9 RDW-CV (test code = 788-0) 16.8 % 12.0-15.5 H PLT (test code = 777-3) See_Comment [Automated messa ge] The system which generated this result transmitted reference range: 166 - 358 10*3/?L. The reference range was not used to interpret this result as normal/abnormal. MPV (test code = 19647-3) 10.3 fL 9.5-12.9 NRBC/100 WBC (test code = 3572244230) See_Comment [Automated [employer] ssage] The system which generated this result transmitted reference range: 0.0 - 10.0 /100 WBCs. The reference range was not used to interpret this result as normal/abnormal. NRBC x10^3 (test code = 4720391966) <0.01 See_Comment [Automated messa ge] The system which generated this result transmitted reference range: 10*3/?L. The reference range was not used to interpret this result as normal/abnormal. GRAN MAT (NEUT) % (test code = 770-8) 51.0 % IMM GRAN % (test code = 1324136990) 0.20 % LYMPH % (test code = 736-9) 31.6 % MONO % (test code = 5905-5) 10.7 % EOS % (test code = 713-8) 4.3 % BASO % (test code = 706-2) 2.2 % GRAN MAT x10^3(ANC) (test code = 3339514656) 2.59 10*3/uL 1.88-7.09 IMM GRAN x10^3 (test code = 5924629404) <0.03 0.00-0.06 LYMPH x10^3 (test code = 731-0) 1.60 10*3/uL 1.32-3.29 MONO x10^3 (test code = 742-7) 0.54 10*3/uL 0.33-0.92 EOS x10^3 (test code = 711-2) 0.22 10*3/uL 0.03-0.39 BASO x10^3 (test code = 704-7) 0.11 10*3/uL 0.01-0.07 H Lab Interpretation (test code = 00149-2) Abnormal [facility] [id number] 06:03:26* Test Item Value Reference Range Interpretation Comments TROPONIN I (test code = 3369767783) 0.003 ng/mL See_Comment [Automated message] The system [...] of biotin. Lab Interpretation (test code = 26271-5) Normal [facility] [id number] 03:56:22* Test Item Value Reference Range Interpretation Comments TROPONIN I (test code = 6357852344) 0.003 ng/mL See_Comment [Automated message] The system [...] of biotin. Lab Interpretation (test code = 16075-8) [facility] JWU-ZBD2521-15-23 03:53:00* Test Item Value Reference Range Interpretation Comme nts NT-proBNP (test code = 9919103825) 143 pg/mL See_Comment H [Automated message] The system which generated this result transmitted reference range: <=125. The reference range was not used to interpret this result as normal/abnormal. LUCILLE (test code = LUCILLE) Biotin has been reported to cause a negative bias, interpret results relative to patient's use of biotin. Lab Interpretation (test code = 00785-8) [facility] (15394)2022-02-23 03:45:59* Test Item Value Reference Range Interpretation Comme nts NA (test code = 8712602391) 140 mmol/L 135-145 K (test code = 3068034719) 4.0 mmol/L 3.5-5.0 CL (test code = 6105980926) 110 mmol/L 98-108 H CO2 TOTAL (test code = 9803024159) 17 mmol/L 23-31 L AGAP (test code = 8183777007) 2-16 BUN (test code = 1365989327) 14 mg/dL 7-23 GLUCOSE (test code = 0824870398) 105 mg/dL 70-110 CREATININE (test code = 0202545875) 1.03 mg/dL 0.50-1.04 TOTAL BILI (test code = 3404390387) 0.3 mg/dL 0.1-1.1 CALCIUM (test code = 9372453235) 8.9 mg/dL 8.6-10.6 T PROTEIN (test code = 0718878829) 6.1 g/dL 6.3-8.2 L ALBUMIN (test code = 9554419837) 3.8 g/dL 3.5-5.0 ALK PHOS (test code = 9993408711) 91 U/L 34-122 ALTv (test code = 1742-6) 19 U/L 5-35 AST(SGOT) (test code = 2274998719) 21 U/L 13-40 eGFR (test code = 5376089830) mL/min/1.73m2 LUCILLE (test code = LUCILLE) Association [...] imaging tests). Lab Interpretation (test code = 77894-9) Abnormal [facility] WITH [id number] 03:23:19* Test Item Value Reference Range Interpretation Comme nts WBC (test code = 6690-2) See_Comment [[employer]] The system which generated this result transmitted reference range: 4.30 - 11.10 10*3/?L. The reference range was not used to interpret this result as normal/abnormal. RBC (test code = 789-8) See_Comment [Automated [employer]] The system which generated this result transmitted [...] g/dL 31.6-35.1 L RDW-SD (test code = 46015-2) 45.7 fL 39.0-49.9 RDW-CV (test code = 788-0) 16.6 % 12.0-15.5 H PLT (test code = 777-3) See_Comment [Automated messa ge] The system which generated this result transmitted reference range: 166 - 358 10*3/?L. The reference range was not used to interpret this result as normal/abnormal. MPV (test code = 21362-7) 10.9 fL 9.5-12.9 NRBC/100 WBC (test code = 7909782360) See_Comment [Automated [employer] ssage] The system which generated this result transmitted reference range: 0.0 - 10.0 /100 WBCs. The reference range was not used to interpret this result as normal/abnormal. NRBC x10^3 (test code = 7810957696) <0.01 See_Comment [Automated [employer]a ge] The system which generated this result transmitted reference range: 10*3/?L. The reference range was not used to interpret this result as normal/abnormal. GRAN MAT (NEUT) % (test code = 770-8) 53.8 % IMM GRAN % (test code = 1685043588) 0.20 % LYMPH % (test code = 736-9) 34.0 % MONO % (test code = 5905-5) 7.9 % EOS % (test code = 713-8) 2.6 % BASO % (test code = 706-2) 1.5 % GRAN MAT x10^3(ANC) (test code = 7379775946) 3.25 10*3/uL 1.88-7.09 IMM GRAN x10^3 (test code = 9077731502) <0.03 0.00-0.06 LYMPH x10^3 (test code = 731-0) 2.06 10*3/uL 1.32-3.29 MONO x10^3 (test code = 742-7) 0.48 10*3/uL 0.33-0.92 EOS x10^3 (test code = 711-2) 0.16 10*3/uL 0.03-0.39 BASO x10^3 (test code = 704-7) 0.09 10*3/uL 0.01-0.07 H Lab Interpretation (test code = 59912-1) Abnormal [facility], THIRD HKSQODRFGR8478-44-65 09:21:37* Test Item Value Reference Range Interpretation Comme nts TSH, THIRD GENERATION (test code = 2821) TEST NOT PERFORMED UIU/ML 0.400-4.100 TESTING CANNOT BE PERFORMED DUE TO AN INTERFERING SUBSTANCE. CHARGES DELETED. AGJHWSBPZNQQ5750-10-53 09:21:37* Test Item Value Reference Range Interpretation [...] . . . . . NG/ML 58.70-214.00 RGXKMSZTH3949-82-20 09:21:37* Test Item Value Reference Range Interpretation Comme nts ESTRADIOL (test code = 2505) TEST NOT PERFORMED PG/ML SEE BELOW TESTING CANNOT BE PERFORMED DUE TO AN INTERFERING SUBSTANCE. CHARGES DELETED. UNLESS OTHERWISE INDICATED, ALL TESTING PERFORMED [facility] [address] [place] [id number] INKER MACHINE: SADIQ VANEGAS M.D. CLIA NUMBER [id number] [facility]. [id number] COMPREHENSIVE METABOLIC [id number] 09:21:22* Test Item Value Reference Range Interpretation Comme nts GLUCOSE (test code = 2217) TEST NOT PERFORMED MG/DL 70-99 TESTING CANNOT BE PERFORMED DUE TO AN INTERFERING SUBSTANCE. CHARGES DELETED. BUN (test code = 2207) TEST NOT PERFORMED MG/DL 6-20 CREATININE (test code = 4) TEST NOT PERFORMED MG/DL 0.60-1.30 eGFR (2020 CKD-EPI) (test code = 17946) TEST NOT PERFORMED ML/MIN/1.73 >60 CALC BUN/CREAT (test code = 2234) TEST NOT PERFORMED RATIO 6-28 SODIUM (test code = 2230) TEST NOT PERFORMED MEQ/L 133-146 POTASSIUM (test code = 8) TEST NOT PERFORMED MEQ/L 3.5-5.4 CHLORIDE (test code = 5) TEST NOT PERFORMED MEQ/L 95-107 CARBON DIOXIDE (test code = 6) TEST NOT PERFORMED MEQ/L 19-31 CALCIUM (test code = 2208) TEST NOT PERFORMED MG/DL 8.5-10.5 PROTEIN, TOTAL (test code = 2228) TEST NOT PERFORMED G/DL 6.1-8.3 ALBUMIN (test code = 1) TEST NOT PERFORMED G/DL 3.5-5.2 CALC GLOBULIN [...] PERFORMED U/L 40-130 AST (test code = 8) TEST NOT PERFORMED U/L 9-40 ALT (test code = 2219) TEST NOT PERFORMED U/L 5-40 [id number] 00:00:00* Test Item Value Reference Range Interpretation Comme nts TSH, THIRD GENERATION (test code = 2821) TEST NOT PERFORMED UIU/ML COMPREHENSIVE METABOLIC [id number] 00:00:00* Test Item Value Reference Range Interpretation Comme nts GLUCOSE (test code = 7) TEST NOT PERFORMED MG/DL BUN (test code = 2208) TEST NOT PERFORME D MG/DL CREATININE (test code = 2214) TEST NOT PERFORMED MG/DL eGFR (2020 CKD-EPI) (test code = 59601) TEST NOT PERFORMED ML/MIN/1.73 CALC BUN/CREAT (test [...] = 2219) TEST NOT PERFORME D U/L WGSFCBVFEHUC2990-18-61 00:00:00* Test Item Value Reference Range Interpretation Comme nts PROGESTERONE (test code = 2790) TEST NOT PERFORMED NG/ML LUVFJJEGY0651-18-17 00:00:00* Test Item Value Reference Range Interpretation Comme nts ESTRADIOL (test code = 2505) TEST NOT PERFORMED PG/ML [id number] 00:00:00* Test Item Value Reference Range Interpretation Comme nts TSH, THIRD GENERATION (test code = 2821) TEST NOT PERFORMED UIU/ML COMPREHENSIVE METABOLIC [id number] 00:00:00* Test Item Value Reference Range Interpretation Comme nts GLUCOSE (test code = 2217) TEST NOT PERFORMED MG/DL BUN (test code = 2208) TEST NOT PERFORME D MG/DL CREATININE (test code = 2214) TEST NOT PERFORMED MG/DL eGFR (2020 CKD-EPI) (test code = 40823) TEST NOT PERFORMED ML/MIN/1.73 CALC BUN/CREAT (test [...] PERFORMED RATIO BILIRUBIN, TOTAL (test code = 220) TEST NOT PERFORMED MG/DL ALKALINE PHOSPHATASE (test code = 2204) TEST NOT PERFORMED U/L AST (test code = 221) TEST NOT PERFORME D U/L ALT (test code = 2219) TEST NOT PERFORME D U/L OHVGJNMJBITQ2227-37-29 00:00:00* Test Item Value Reference Range Interpretation Comme nts PROGESTERONE (test code = 2790) TEST NOT PERFORMED NG/ML [id number] 00:00:00* Test Item Value Reference Range Interpretation Comme nts ESTRADIOL (test code = 2505) TEST NOT PERFORMED PG/ML [id number] 00:00:00* Test Item Value Reference Range Interpretation Comme nts TSH, THIRD GENERATION (test code = 2821) TEST NOT PERFORMED UIU/ML [id number] 00:00:00* Test Item Value Reference Range Interpretation Comme nts TSH, THIRD GENERATION (test code = 2821) TEST NOT PERFORMED UIU/ML COMPREHENSIVE METABOLIC [id number] 00:00:00* Test Item Value Reference Range Interpretation Comme nts GLUCOSE (test code = 2217) TEST NOT PERFORMED MG/DL BUN (test code = 2208) TEST NOT PERFORME D MG/DL CREATININE (test code = 2214) TEST NOT PERFORMED MG/DL eGFR (2020 CKD-EPI) (test code = 15808) TEST NOT PERFORMED ML/MIN/1.73 CALC BUN/CREAT (test [...] TEST NOT PERFORME D U/L COMPREHENSIVE METABOLIC [id number] 00:00:00* Test Item Value Reference Range Interpretation Comme nts GLUCOSE (test code = 2217) TEST NOT PERFORMED MG/DL BUN (test code = 2208) TEST NOT PERFORME D MG/DL CREATININE (test code = 2214) TEST NOT PERFORMED MG/DL eGFR (2020 CKD-EPI) (test code = 34582) TEST NOT PERFORMED ML/MIN/1.73 CALC BUN/CREAT (test [...] = 2219) TEST NOT PERFORME D U/L [id number] 00:00:00* Test Item Value Reference Range Interpretation Comme nts PROGESTERONE (test code = 2790) TEST NOT PERFORMED NG/ML [id number] 00:00:00* Test Item Value Reference Range Interpretation Comme nts ESTRADIOL (test code = 2505) TEST NOT PERFORMED PG/ML ENJECCTDXQVW3825-58-83 00:00:00* Test Item Value Reference Range Interpretation Comme nts PROGESTERONE (test code = 2790) TEST NOT PERFORMED NG/ML [id number] 00:00:00* Test Item Value Reference Range Interpretation Comme nts ESTRADIOL (test code = 2505) TEST NOT PERFORMED PG/ML [id number] 00:00:00* Test Item Value Reference Range Interpretation Comme nts TSH, THIRD GENERATION (test code = 2821) TEST NOT PERFORMED UIU/ML Dwayne MyersCOMPREHENSIVE METABOLIC [id number] 00:00:00* Test Item Value Reference Range Interpretation Comme nts GLUCOSE (test code = 2217) TEST NOT PERFORMED MG/DL BUN (test code = 2208) TEST NOT PERFORME D MG/DL CREATININE (test code = 2214) TEST NOT PERFORMED MG/DL eGFR (2020 CKD-EPI) (test code = 50697) TEST NOT PERFORMED ML/MIN/1.73 CALC BUN/CREAT (test [...] 2219) TEST NOT PERFORME D U/L Dwayne Bah HkkaulYMQLQRYYRIYV3467-26-59 00:00:00* Test Item Value Reference Range Interpretation Comme nts PROGESTERONE (test code = 2790) TEST NOT PERFORMED NG/ML Dwayne Bah JlnruvKSVKHMHAA5725-97-01 00:00:00* Test Item Value Reference Range Interpretation Comme nts ESTRADIOL (test code = 2505) TEST NOT PERFORMED PG/ML Dwayne MyersXzzzzoVFC4037-18-57 00:00:00* Test Item Value Reference Range Interpretation Comme nts TSH, THIRD GENERATION (test code = 2821) TEST NOT PERFORMED UIU/ML Dwayne MyersCOMPREHENSIVE METABOLIC [id number] 00:00:00* Test Item Value Reference Range Interpretation Comme nts GLUCOSE (test code = 2217) TEST NOT PERFORMED MG/DL BUN (test code = 2208) TEST NOT PERFORME D MG/DL CREATININE (test code = 2214) TEST NOT PERFORMED MG/DL eGFR (2020 CKD-EPI) (test code = 88532) TEST NOT PERFORMED ML/MIN/1.73 CALC BUN/CREAT (test [...] 2219) TEST NOT PERFORME D U/L Dwayne MyersQdiyycJYATCERHNCGM0369-40-96 00:00:00* Test Item Value Reference Range Interpretation Comme nts PROGESTERONE (test code = 2790) TEST NOT PERFORMED NG/ML Dwayne MyersPddnhhBUKYAJOFC6927-51-43 00:00:00* Test Item Value Reference Range Interpretation Comme nts ESTRADIOL (test code = 2505) TEST NOT PERFORMED PG/ML Dwayne MyersDrqysjLTM6701-51-36 00:00:00* Test Item Value Reference Range Interpretation Comme nts TSH, THIRD GENERATION (test code = 2821) TEST NOT PERFORMED UIU/ML Dwayne Bah AustinCOMPREHENSIVE METABOLIC [id number] 00:00:00* Test Item Value Reference Range Interpretation Comme nts GLUCOSE (test code = 2217) TEST NOT PERFORMED MG/DL BUN (test code = 2208) TEST NOT PERFORME D MG/DL CREATININE (test code = 2214) TEST NOT PERFORMED MG/DL eGFR (2020 CKD-EPI) (test code = 48939) TEST NOT PERFORMED ML/MIN/1.73 CALC BUN/CREAT (test code = 2235) TEST NOT PERFORMED RATIO SODIUM (test code = 223) TEST NOT PERFORMED MEQ/L POTASSIUM (test code [...] 2219) TEST NOT PERFORME D U/L Dwayne Bah CkluveMSFZQCVMVHLT7849-01-29 00:00:00* Test Item Value Reference Range Interpretation Comme nts PROGESTERONE (test code = 2790) TEST NOT PERFORMED NG/ML Dwayne F EgbwhqXTCRXPDMV7360-74-54 00:00:00* Test Item Value Reference Range Interpretation Comme nts ESTRADIOL (test code = 2505) TEST NOT PERFORMED PG/ML Dwayne Niurka MqnbzzQRB0599-03-67 00:00:00* Test Item Value Reference Range Interpretation Comme nts TSH, THIRD GENERATION (test code = 2821) TEST NOT PERFORMED UIU/ML Dwayne Bah AustinCOMPREHENSIVE METABOLIC [id number] 00:00:00* Test Item Value Reference Range Interpretation Comme nts GLUCOSE (test code = 2217) TEST NOT PERFORMED MG/DL BUN (test code = 2208) TEST NOT PERFORME D MG/DL CREATININE (test code = 2214) TEST NOT PERFORMED MG/DL eGFR (2020 CKD-EPI) (test code = 88293) TEST NOT PERFORMED ML/MIN/1.73 CALC BUN/CREAT (test code = 223) TEST NOT PERFORMED RATIO SODIUM (test code = 223) TEST NOT PERFORMED MEQ/L POTASSIUM (test code [...] PERFORMED RATIO BILIRUBIN, TOTAL (test code = 220) TEST NOT PERFORMED MG/DL ALKALINE PHOSPHATASE (test code = 2204) TEST NOT PERFORMED U/L AST (test code = 221) TEST NOT PERFORME D U/L ALT (test code = 2219) TEST NOT PERFORME D U/L Dwayne MyersHutfobSVXVGNVEHICF8484-58-19 00:00:00* Test Item Value Reference Range Interpretation Comme nts PROGESTERONE (test code = 2790) TEST NOT PERFORMED NG/ML Dwayne MyersNwmeytIIZLJYNFN4700-09-82 00:00:00* Test Item Value Reference Range Interpretation Comme nts ESTRADIOL (test code = 2505) TEST NOT PERFORMED PG/ML Dwayne Bah ZofbqvVYW3639-27-64 00:00:00* Test Item Value Reference Range Interpretation Comme nts TSH, THIRD GENERATION (test code = 2821) TEST NOT PERFORMED UIU/ML Dwayne MyersCOMPREHENSIVE METABOLIC [id number] 00:00:00* Test Item Value Reference Range Interpretation Comme nts GLUCOSE (test code = 2217) TEST NOT PERFORMED MG/DL BUN (test code = 2208) TEST NOT PERFORME D MG/DL CREATININE (test code = 2214) TEST NOT PERFORMED MG/DL eGFR (2020 CKD-EPI) (test code = ) TEST NOT PERFORMED ML/MIN/1.73 CALC BUN/CREAT (test code = 2235) TEST NOT PERFORMED RATIO SODIUM (test code = 2231) TEST NOT PERFORMED MEQ/L POTASSIUM (test code = 2228) TEST NOT PERFORMED MEQ/L CHLORIDE (test code = 2215) TEST NOT PERFORMED MEQ/L CARBON DIOXIDE (test code = 220) TEST NOT PERFORMED MEQ/L CALCIUM (test code [...] PERFORMED MG/DL ALKALINE PHOSPHATASE (test code = 2203) TEST NOT PERFORMED U/L AST (test code = 2217) TEST NOT PERFORME D U/L ALT (test code = 2218) TEST NOT PERFORME D U/L Dwayne MyersQuuaqxNKDSBAVZQNNB3296-98-99 00:00:00* Test Item Value Reference Range Interpretation Comme nts PROGESTERONE (test code = 2790) TEST NOT PERFORMED NG/ML Dwayne Bah WpdvkgUZRCOSUMC8596-86-44 00:00:00* Test Item Value Reference Range Interpretation Comme nts ESTRADIOL (test code = 2505) TEST NOT PERFORMED PG/ML Dwayne Bah TsjtwsPYF6363-68-67 00:00:00* Test Item Value Reference Range Interpretation Comme nts TSH, THIRD GENERATION (test code = 2821) TEST NOT PERFORMED UIU/ML Dwayne MyersCOMPREHENSIVE METABOLIC WEDGV3910-42-37 00:00:00* Test Item Value Reference Range Interpretation Comme nts GLUCOSE (test code = 2217) TEST NOT PERFORMED MG/DL BUN (test code = 2208) TEST NOT PERFORME D MG/DL CREATININE (test code = 2214) TEST NOT PERFORMED MG/DL eGFR (2020 CKD-EPI) (test code = 51396) TEST NOT PERFORMED ML/MIN/1.73 CALC BUN/CREAT (test [...] 2219) TEST NOT PERFORME D U/L Dwayne MyersIgqjhmVCURLQOZGLLX0920-51-49 00:00:00* Test Item Value Reference Range Interpretation Comme nts PROGESTERONE (test code = 2790) TEST NOT PERFORMED NG/ML Dwayne MyersOsggdpVNAXNHPOK5763-03-31 00:00:00* Test Item Value Reference Range Interpretation Comme nts ESTRADIOL (test code = 2505) TEST NOT PERFORMED PG/ML Dwayne MyersFtiguyEXC1718-02-71 00:00:00* Test Item Value Reference Range Interpretation Comme nts TSH, THIRD GENERATION (test code = 2821) TEST NOT PERFORMED UIU/ML Dwayne MyersCOMPREHENSIVE METABOLIC WNHDQ8060-00-79 00:00:00* Test Item Value Reference Range Interpretation Comme nts GLUCOSE (test code = 2217) TEST NOT PERFORMED MG/DL BUN (test code = 2208) TEST NOT PERFORME D MG/DL CREATININE (test code = 2214) TEST NOT PERFORMED MG/DL eGFR (2020 CKD-EPI) (test code = 53183) TEST NOT PERFORMED ML/MIN/1.73 CALC BUN/CREAT (test [...] 2219) TEST NOT PERFORME D U/L Dwayne MyersOlmrrlGBQODDWXEDUI0808-20-94 00:00:00* Test Item Value Reference Range Interpretation Comme nts PROGESTERONE (test code = 2790) TEST NOT PERFORMED NG/ML Dwayne Bah GzyscdJZPYSNSCC1873-22-28 00:00:00* Test Item Value Reference Range Interpretation Comme nts ESTRADIOL (test code = 2505) TEST NOT PERFORMED PG/ML Dwayne Bah FotcudTXR3323-51-57 00:00:00* Test Item Value Reference Range Interpretation Comme nts TSH, THIRD GENERATION (test code = 2821) TEST NOT PERFORMED UIU/ML Dwayne MyersCOMPREHENSIVE METABOLIC RRMSV8235-98-22 00:00:00* Test Item Value Reference Range Interpretation Comme nts GLUCOSE (test code = 2217) TEST NOT PERFORMED MG/DL BUN (test code = 2208) TEST NOT PERFORME D MG/DL CREATININE (test code = 2214) TEST NOT PERFORMED MG/DL eGFR (2020 CKD-EPI) (test code = 18638) TEST NOT PERFORMED ML/MIN/1.73 CALC BUN/CREAT (test [...] 2219) TEST NOT PERFORME D U/L Dwayne MyersBurzmwNZWNBHPFQKZS7923-66-67 00:00:00* Test Item Value Reference Range Interpretation Comme nts PROGESTERONE (test code = 2790) TEST NOT PERFORMED NG/ML Dwayne MyersZmzxluKBCVSSXCV0627-88-89 00:00:00* Test Item Value Reference Range Interpretation Comme nts ESTRADIOL (test code = 2505) TEST NOT PERFORMED PG/ML Dwayne MyersNnqcdhSOT9909-87-49 00:00:00* Test Item Value Reference Range Interpretation Comme nts TSH, THIRD GENERATION (test code = 2821) TEST NOT PERFORMED UIU/ML Dwayne MyersCOMPREHENSIVE METABOLIC DSJTY7350-22-72 00:00:00* Test Item Value Reference Range Interpretation Comme nts GLUCOSE (test code = 2217) TEST NOT PERFORMED MG/DL BUN (test code = 2208) TEST NOT PERFORME D MG/DL CREATININE (test code = 2214) TEST NOT PERFORMED MG/DL eGFR (2020 CKD-EPI) (test code = 14337) TEST NOT PERFORMED ML/MIN/1.73 CALC BUN/CREAT (test [...] 2219) TEST NOT PERFORME D U/L Dwayne MyersMmhukcHYAPOCYQUQST6054-08-06 00:00:00* Test Item Value Reference Range Interpretation Comme nts PROGESTERONE (test code = 2790) TEST NOT PERFORMED NG/ML Dwayne MyersPcekqeKPRGXPXRA7412-02-43 00:00:00* Test Item Value Reference Range Interpretation Comme nts ESTRADIOL (test code = 2505) TEST NOT PERFORMED PG/ML Dwayne MyersTROPONIN Y3649-03-61 14:05:29* Test Item Value Reference Range Interpretation Comments TROPONIN I (test code = 3576533327) <0.012 See_Comment [Automated message] The system which [...] of biotin. Lab Interpretation (test code = 09247-3) [facility] YJL-PYJ1769-56-29 14:02:07* Test Item Value Reference Range Interpretation Comme nts NT-proBNP (test code = 5016799499) 343 pg/mL See_Comment H [Automated message] The system which generated this result transmitted reference range: <=125. The reference range was not used to interpret this result as normal/abnormal. LUCILLE (test code = LUCILLE) Biotin has been reported to cause a negative bias, interpret results relative to patient's use of biotin. Lab Interpretation (test code = 50052-2) [facility] (49333)2022-01-29 13:53:30* Test Item Value Reference Range Interpretation Comme nts NA (test code = 8008371790) 146 mmol/L 135-145 H K (test code = 8804067523) 4.2 mmol/L 3.5-5.0 CL (test code = 8667968610) 114 mmol/L 98-108 H CO2 TOTAL (test code = 3537256760) 23 mmol/L 23-31 AGAP (test code = 5916042611) 2-16 BUN (test code = 7389277501) 14 mg/dL 7-23 GLUCOSE (test code = 8377412473) 72 mg/dL 70-110 CREATININE (test code = 2420361355) 1.08 mg/dL 0.50-1.04 H TOTAL BILI (test code = 8688032950) 0.3 mg/dL 0.1-1.1 CALCIUM (test code = 4695945451) 9.1 mg/dL 8.6-10.6 T PROTEIN (test code = 5734786443) 6.1 g/dL 6.3-8.2 L ALBUMIN (test code = 9330499323) 3.8 g/dL 3.5-5.0 ALK PHOS (test code = 2199812840) 86 U/L 34-122 ALTv (test code = 1742-6) 26 U/L 5-35 AST(SGOT) (test code = 6401980250) 28 U/L 13-40 eGFR (test code = 1317697201) mL/min/1.73m2 LUCILLE (test code = LUCILLE) Association [...] imaging tests). Lab Interpretation (test code = 02739-1) [facility] + LACTIC FPKQ2662-21-82 13:52:59* Test Item Value Reference Range Interpretation Comme nts PH (test code = 8783582949) 7.32-7.42 PCO2 WYATT (test code = 2463722139) See_Comment [Automated messa ge] The system which generated this result transmitted reference range: 41 - 51 mmHg. The reference range was not used to interpret this result as normal/abnormal. PO2 WYATT (test code = [id number]) See_Comment L [Automated messa ge] The system which generated this result transmitted reference range: 25 - 40 mmHg. The reference range was not used to interpret this result as normal/abnormal. HCO3 WYATT (test code = 3151164406) See_Comment [Automated messa ge] The system which generated this result transmitted reference range: 24 - 28 mEq/L. The reference range was not used to interpret this result as normal/abnormal. AC VBE(BEAKER) (test code = 3383064507) mEq/L THB WYATT (test code = 4309437774) 11.4 g/dL 12.0-16.0 L %O2HB WYATT (test code = 7500451984) 21.7 % 52.0-63.0 L %COHB WYATT (test code = 9517949543) 0.3 % 0.0-1.5 %METHB WYATT (test code = 3932666516) 1.1 % 0.4-1.5 VOL%O2 WYATT (test code = 5939465583) 3.5 % 6.0-12.0 L NA (test code = 4532583298) 145 mmol/L 135-145 K+ (test code = 8669505573) 4.0 mmol/L 3.5-5.0 AC CA IONZ (test code = 0528402126) 5.00 mg/dL 4.50-5.30 GLUCOSE (test code = 6900394552) 70 mg/dL 70-110 LACTIC ACID (test code = 1365274774) 2.81 mmol/L 0.50-2.20 H Lab Interpretation (test code = 83913-7) Abnormal [facility] WITH [id number] 13:41:47* Test Item Value Reference Range Interpretation Comme nts WBC (test code = 6690-2) See_Comment [Automated WhoWantsMea ge] The system which generated this result transmitted reference range: 4.30 - 11.10 10*3/?L. The reference range was not used to interpret this result as normal/abnormal. RBC (test code = 789-8) See_Comment [Automated [employer]a ge] The system which generated this result [...] g/dL 31.6-35.1 L RDW-SD (test code = 87768-4) 47.6 fL 39.0-49.9 RDW-CV (test code = 788-0) 15.9 % 12.0-15.5 H PLT (test code = 777-3) See_Comment [Automated messa ge] The system which generated this result transmitted reference range: 166 - 358 10*3/?L. The reference range was not used to interpret this result as normal/abnormal. MPV (test code = 27524-5) 10.9 fL 9.5-12.9 NRBC/100 WBC (test code = 0873450269) See_Comment [Automated [employer] ssage] The system which generated this result transmitted reference range: 0.0 - 10.0 /100 WBCs. The reference range was not used to interpret this result as normal/abnormal. NRBC x10^3 (test code = 0679110364) <0.01 See_Comment [Automated messa ge] The system which generated this result transmitted reference range: 10*3/?L. The reference range was not used to interpret this result as normal/abnormal. GRAN MAT (NEUT) % (test code = 770-8) 80.7 % IMM GRAN % (test code = 4074912855) 0.30 % LYMPH % (test code = 736-9) 12.4 % MONO % (test code = 5905-5) 4.9 % EOS % (test code = 713-8) 0.9 % BASO % (test code = 706-2) 0.8 % GRAN MAT x10^3(ANC) (test code = 6531860566) 6.92 10*3/uL 1.88-7.09 IMM GRAN x10^3 (test code = 4287694024) 0.03 10*3/uL 0.00-0.06 LYMPH x10^3 (test code = 731-0) 1.06 10*3/uL 1.32-3.29 L MONO x10^3 (test code = 742-7) 0.42 10*3/uL 0.33-0.92 EOS x10^3 (test code = 711-2) 0.08 10*3/uL 0.03-0.39 BASO x10^3 (test code = 704-7) 0.07 10*3/uL 0.01-0.07 Lab Interpretation (test code = 92529-2) Abnormal [facility] W/AUTO DIFF WITH [id number] 05:43:21* Test Item Value Reference Range Interpretation [...] = 1065) 0.0 /100 WBC'S See_Comment [Automated [employer] ge] The system which generated this result [...] 0.00-0.10 ABS NUCLEATED RBCS (test code = 99093) 0.00 K/UL 0.00-0.11 HEMOGLOBIN [id number] 05:31:32* Test Item Value Reference Range Interpretation Comme nts HEMOGLOBIN A1c (test code = 05540) 6.4 % 4.2-5.6 H HEMOGLOBIN [id number] 00:00:00* Test Item Value Reference Range Interpretation Comme nts HEMOGLOBIN A1c (test code = 68739) 6.4 % CBC W/AUTO [id number] 00:00:00* Test Item Value Reference Range Interpretation [...] ABS NUCLEATED RBCS (test cod e = 50029) 0.00 K/UL HEMOGLOBIN [id number] 00:00:00* Test Item Value Reference Range Interpretation Comme nts HEMOGLOBIN A1c (test code = 64929) 6.4 % CBC W/AUTO [id number] 00:00:00* Test Item Value Reference Range Interpretation [...] ABS NUCLEATED RBCS (test cod e = 90713) 0.00 K/UL HEMOGLOBIN [id number] 00:00:00* Test Item Value Reference Range Interpretation Comme nts HEMOGLOBIN A1c (test code = 24396) 6.4 % CBC W/AUTO [id number] 00:00:00* Test Item Value Reference Range Interpretation [...] ABS NUCLEATED RBCS (test cod e = 82089) 0.00 K/UL HEMOGLOBIN [id number] 00:00:00* Test Item Value Reference Range Interpretation Comme nts HEMOGLOBIN A1c (test code = 30774) 6.4 % CBC W/AUTO [id number] 00:00:00* Test Item Value Reference Range Interpretation [...] ABS NUCLEATED RBCS (test cod e = 49763) 0.00 K/UL HEMOGLOBIN [id number] 00:00:00* Test Item Value Reference Range Interpretation Comme nts HEMOGLOBIN A1c (test code = 62711) 6.4 % Dwayne MyersCBC W/AUTO [id number] 00:00:00* Test Item Value Reference Range Interpretation [...] ABS NUCLEATED RBCS (test cod e = 95778) 0.00 K/UL Dwayne MyersHEMOGLOBIN [id number] 00:00:00* Test Item Value Reference Range Interpretation Comme nts HEMOGLOBIN A1c (test code = 51478) 6.4 % Dwayne MyersCBC W/AUTO [id number] 00:00:00* Test Item Value Reference Range Interpretation [...] ABS NUCLEATED RBCS (test cod e = 12768) 0.00 K/UL Dwayne MyersHEMOGLOBIN [id number] 00:00:00* Test Item Value Reference Range Interpretation Comme nts HEMOGLOBIN A1c (test code = 83457) 6.4 % Dwayne MyersCBC W/AUTO [id number] 00:00:00* Test Item Value Reference Range Interpretation [...] ABS NUCLEATED RBCS (test cod e = 27151) 0.00 K/UL Dwayne MyersHEMOGLOBIN [id number] 00:00:00* Test Item Value Reference Range Interpretation Comme nts HEMOGLOBIN A1c (test code = 36645) 6.4 % Dwayne MyersCBC W/AUTO [id number] 00:00:00* Test Item Value Reference Range Interpretation [...] ABS NUCLEATED RBCS (test cod e = 25438) 0.00 K/UL Dwayne Bah AustinHEMOGLOBIN [id number] 00:00:00* Test Item Value Reference Range Interpretation Comme nts HEMOGLOBIN A1c (test code = 48086) 6.4 % Dwayne Bah AustinCBC W/AUTO [id number] 00:00:00* Test Item Value Reference Range Interpretation [...] ABS NUCLEATED RBCS (test cod e = 11303) 0.00 K/UL Dwayne Bah AustinHEMOGLOBIN [id number] 00:00:00* Test Item Value Reference Range Interpretation Comme nts HEMOGLOBIN A1c (test code = 58259) 6.4 % Dwayne Bah AustinCBC W/AUTO [id number] 00:00:00* Test Item Value Reference Range Interpretation [...] ABS NUCLEATED RBCS (test cod e = 44335) 0.00 K/UL Dwayne Bah LouisHEMOGLOBIN [id number] 00:00:00* Test Item Value Reference Range Interpretation Comme nts HEMOGLOBIN A1c (test code = 92759) 6.4 % Dwayne Bah LouisCBC W/AUTO [id number] 00:00:00* Test Item Value Reference Range Interpretation [...] ABS NUCLEATED RBCS (test cod e = 75518) 0.00 K/UL Dwayne MyersHEMOGLOBIN [id number] 00:00:00* Test Item Value Reference Range Interpretation Comme nts HEMOGLOBIN A1c (test code = 56565) 6.4 % Dwayne MyersCBC W/AUTO [id number] 00:00:00* Test Item Value Reference Range Interpretation [...] ABS NUCLEATED RBCS (test cod e = 04933) 0.00 K/UL Dwayne MyersHEMOGLOBIN [id number] 00:00:00* Test Item Value Reference Range Interpretation Comme nts HEMOGLOBIN A1c (test code = 70980) 6.4 % Dwayne MyersCBC W/AUTO [id number] 00:00:00* Test Item Value Reference Range Interpretation [...] ABS NUCLEATED RBCS (test cod e = 10192) 0.00 K/UL Dwayne MyersC-ARM<1 HR W IMAGES*WW*2022-01-05 15:46:44 [facility] [place] [facility]ENTERName[place] NANCIE ORDONEZ : 1970 Sex: FFluoroscopyLocation Code: [id number] HISTORY: SURGICAL PROCEDURE , Back painComments: Fluoroscopy was provided during sympathetic nerve block. Approximately fluoroscopy time was 32.6 seconds. 3 images were obtained.IMPRESSION: Fluoroscopy services provided. Please see operative report for full details.Electronically signed by: Gabriele Castaneda MD 01/05/2022 3:46 PM CDT [id number] URINE MONOCLONAL *WW*2022-01-05 11:24:00* Test Item Value Reference Range Interpretation Comme nts PREG UR (test code = PGU) NEGATIVE NEGATIVE CBC WITH [id number] 12:44:09* Test Item Value Reference Range Interpretation Comme nts WBC (test code = 6690-2) See_Comment H [Automated [employer]antsMea ge] The system which generated this result transmitted reference range: 4.30 - 11.10 10*3/?L. The reference range was not used to interpret this result as normal/abnormal. RBC (test code = 789-8) See_Comment L [Automated [employer]antsMea ge] The system which generated this result [...] g/dL 31.6-35.1 L RDW-SD (test code = 57670-2) 49.5 fL 39.0-49.9 RDW-CV (test code = 788-0) 15.5 % 12.0-15.5 PLT (test code = 777-3) See_Comment H [Automated [employer]antsMea ge] The system which generated this result transmitted reference range: 166 - 358 10*3/?L. The reference range was not used to interpret this result as normal/abnormal. MPV (test code = 47782-3) 10.3 fL 9.5-12.9 NRBC/100 WBC (test code = 6207475740) See_Comment [Automated [employer] ssage] The system which generated this result transmitted reference range: 0.0 - 10.0 /100 WBCs. The reference range was not used to interpret this result as normal/abnormal. NRBC x10^3 (test code = 5907352663) See_Comment [Automated [employer]antsMea ge] The system which generated this result transmitted reference range: 10*3/?L. The reference range was not used to interpret this result as normal/abnormal. GRAN MAT (NEUT) % (test code = 770-8) 64.4 % IMM GRAN % (test code = 1511010735) 3.60 % LYMPH % (test code = 736-9) 23.5 % MONO % (test code = 5905-5) 7.3 % EOS % (test code = 713-8) 0.9 % BASO % (test code = 706-2) 0.3 % GRAN MAT x10^3(ANC) (test code = 7147730798) 7.19 10*3/uL 1.88-7.09 H IMM GRAN x10^3 (test code = 1962050530) 0.40 10*3/uL 0.00-0.06 H LYMPH x10^3 (test code = 731-0) 2.63 10*3/uL 1.32-3.29 MONO x10^3 (test code = 742-7) 0.82 10*3/uL 0.33-0.92 EOS x10^3 (test code = 711-2) 0.10 10*3/uL 0.03-0.39 BASO x10^3 (test code = 704-7) 0.03 10*3/uL 0.01-0.07 POLYCHROMASIA (test code = 85087-5) 2+ See_Comment [Automated messa ge] The system [...] as normal/abnormal. Lab Interpretation (test code = 06461-0) [facility] [id number] 10:06:53* Test Item Value Reference Range Interpretation Comme nts NT-proBNP (test code = 2497891419) 117 pg/mL See_Comment [Automated message] The system which generated this result transmitted reference range: <=125. The reference range was not used to interpret this result as normal/abnormal. LUCILLE (test code = LUCILLE) Biotin has been reported to cause a negative bias, interpret results relative to patient's use of biotin. Lab Interpretation (test code = 32326-8) [facility] TylerCOM. METABOLIC PANEL (71639)2021-12-07 10:02:35* Test Item Value Reference Range Interpretation Comme nts NA (test code = 3249931990) 140 mmol/L 135-145 K (test code = 7510627436) 3.7 mmol/L 3.5-5.0 CL (test code = 9498391217) 104 mmol/L 98-108 CO2 TOTAL (test code = 9655364537) 31 mmol/L 23-31 AGAP (test code = 7526218782) 2-16 BUN (test code = 4800185757) 21 mg/dL 7-23 GLUCOSE (test code = 4663395149) 91 mg/dL 70-110 CREATININE (test code = 7215741173) 1.00 mg/dL 0.50-1.04 TOTAL BILI (test code = 5757108797) 0.3 mg/dL 0.1-1.1 CALCIUM (test code = 4704080645) 8.1 mg/dL 8.6-10.6 L T PROTEIN (test code = 5027924422) 5.9 g/dL 6.3-8.2 L ALBUMIN (test code = 1810180196) 3.4 g/dL 3.5-5.0 L ALK PHOS (test code = 2687701243) 87 U/L 34-122 ALTv (test code = 1742-6) 39 U/L 5-35 H AST(SGOT) (test code = 5847694174) 24 U/L 13-40 eGFR (test code = 0618634220) mL/min/1.73m2 LUCILLE (test code = LUCILLE) Association [...] imaging tests). Lab Interpretation (test code = 61298-3) [facility]normal [facility] TylerMAGNESIUM2022-04-06 10:02:35* Test Item Value Reference Range Interpretation Comme nts MAGNESIUM (test code = 1939937480) 2.2 mg/dL 1.7-2.4 Lab Interpretation (test cod e = 58018-5) [facility] TylerVITAMIN B12, [id number] 22:18:47* Test Item Value Reference Range Interpretation Comme nts VIT B12 (test code = 7319035352) 979 pg/mL 240-930 H LUCILLE (test code = LUCILLE) Biotin has been reported to cause a positive bias, interpret results relative to patient's use of biotin. Lab Interpretation (test code = 16655-1) [facility]normal [facility] TylerPROCALCITONIN2022-04-05 21:47:27* Test Item Value Reference Range Interpretation Comme nts Procalcitonin (test code = 3187291492) 0.05 ng/mL <0.07 LUCILLE (test code = [...] lung abscess/empyema. For further information please refer to:[email or web address] Lab Interpretation (test code = 22213-8) [facility] TylerVITAMIN D, [id number] 20:41:30* Test Item Value Reference Range Interpretation Comme nts VIT D 25OH (test code = 15779-1) <13 25-80 L LUCILLE (test code = LUCILLE) Deficiency: <20 ng/mLInsufficiency: 20-24 ng/mLOptimal: 25-80 ng/mL Lab Interpretation (test code = 04774-7) [facility] TylerDIFF CONSULT [id number] 20:04:06 LEUKOCYTOSIS WITH ABSOLUTE NEUTROPHILIA AND INCREASED IMMATURE GRANULOCYTES/LEFT SHIFT, CONSISTENT WITH PATIENT'S KNOWN INFECTION. NORMOCYTIC, NORMOCHROMIC ANEMIA. MILD THROMBOCYTOSIS.[facility] [id number] 18:31:30* Test Item Value Reference Range Interpretation Comme nts FREE T3 (test code = 0300323950) 2.49 pg/mL 2.77-5.27 L Lab Interpretation (test cod e = 00526-0) Abnormal [facility]-REACTIVE [id number] 17:54:11* Test Item Value Reference Range Interpretation Comme nts CRP (test code = 8836070887) 0.2 mg/dL <0.8 Lab Interpretation (test cod e = 42296-1) [facility] TylerFR [id number] 13:49:44* Test Item Value Reference Range Interpretation Comme nts FREE T4 (test code = 3980933909) See_Comment L [Automated messa ge] The system which generated this result transmitted reference range: 0.78 - 2.20 ng/dL:. The reference range was not used to interpret this result as normal/abnormal. Lab Interpretation (test code = 02395-1) Abnormal [facility] WITH [id number] 12:20:38* Test Item Value Reference Range Interpretation [...] 31.8 g/dL 31.6-35.1 RDW-SD (test code = 86921-7) 48.5 fL 39.0-49.9 RDW-CV (test code = 788-0) 15.3 % 12.0-15.5 PLT (test code = 777-3) See_Comment [Automated message] The system which generated this result transmitted reference range: 166 - 358 10*3/?L. The reference range was not used to interpret this result as normal/abnormal. MPV (test code = 64800-8) 10.4 fL 9.5-12.9 NRBC/100 WBC (test code = 4261604522) See_Comment [Automated message] The system which generated this result transmitted reference range: 0.0 - 10.0 /100 WBCs. The reference range was not used to interpret this result as normal/abnormal. NRBC x10^3 (test code = 2903414764) See_Comment [Automated message] The system which generated this result transmitted reference range: 10*3/?L. The reference range was not used to interpret this result as normal/abnormal. GRAN MAT (NEUT) % (test code = 770-8) 74.0 % IMM GRAN % (test code = 7229279806) 3.20 % LYMPH % (test code = 736-9) 14.7 % MONO % (test code = 5905-5) 7.7 % EOS % (test code = 713-8) 0.1 % BASO % (test code = 706-2) 0.3 % GRAN MAT x10^3(ANC) (test code = 6478004883) 11.18 10*3/uL 1.88-7.09 H IMM GRAN x10^3 (test code = 9764585034) 0.48 10*3/uL 0.00-0.06 H LYMPH x10^3 (test code = 731-0) 2.22 10*3/uL 1.32-3.29 MONO x10^3 (test code = 742-7) 1.17 10*3/uL 0.33-0.92 H EOS x10^3 (test code = 711-2) <0.03 0.03-0.39 L BASO x10^3 (test code = 704-7) 0.04 10*3/uL 0.01-0.07 Lab Interpretation (test code = 63880-8) [facility]normal [facility] TylerFERRITIN [id number] 11:45:10* Test Item Value Reference Range Interpretation Comme nts FERRITIN (test code = 3427080719) 16.1 ng/mL 11.0-264.0 LUCILLE (test code = LUCILLE) Biotin has been reported to cause a negative bias, interpret results relative to patient's use of biotin. Lab Interpretation (test code = 59816-8) Normal [facility] TylerTHYROID STIMULATING [id number] 11:41:28 * Test Item Value Reference Range Interpretation Comme nts TSH (test code = 6080624257) See_Comment L [Automated [employer]] The system which generated this result transmitted reference range: 0.45 - 4.70 mIU/L. The reference range was not used to interpret this result as normal/abnormal. Lab Interpretation (test code = 03076-8) [facility]normal [facility] TylerSEDIMENTATION [id number] 11:30:34* Test Item Value Reference Range Interpretation Comme nts ESR (test code = 6873256668) See_Comment [Automated [employer]] The system which generated this result transmitted reference range: 0 - 20 mm/HR. The reference range was not used to interpret this result as normal/abnormal. Lab Interpretation (test code = 52396-0) Normal [facility] TylerTROPONIN [id number] 11:30:08* Test Item Value Reference Range Interpretation Comments TROPONIN I (test code = 0728382219) 0.023 ng/mL See_Comment [Automated message] The system [...] of biotin. Lab Interpretation (test code = 44189-6) [facility] TylerCOMP. METABOLIC PANEL (84334)2021-12-06 11:28:58* Test Item Value Reference Range Interpretation Comme nts NA (test code = 2548371582) 140 mmol/L 135-145 K (test code = 0785568079) 3.1 mmol/L 3.5-5.0 L CL (test code = 4071728658) 106 mmol/L 98-108 CO2 TOTAL (test code = 5150125098) 31 mmol/L 23-31 AGAP (test code = 0411594845) 2-16 BUN (test code = 5384264958) 24 mg/dL 7-23 H GLUCOSE (test code = 1638358301) 88 mg/dL 70-110 CREATININE (test code = 2309714218) 0.95 mg/dL 0.50-1.04 TOTAL BILI (test code = 4824913052) 0.3 mg/dL 0.1-1.1 CALCIUM (test code = 0041543418) 8.4 mg/dL 8.6-10.6 L T PROTEIN (test code = 0190373567) 5.7 g/dL 6.3-8.2 L ALBUMIN (test code = 8040870731) 3.3 g/dL 3.5-5.0 L ALK PHOS (test code = 5956303870) 83 U/L 34-122 ALTv (test code = 1742-6) 44 U/L 5-35 H AST(SGOT) (test code = 9864096655) 27 U/L 13-40 eGFR (test code = 1638864384) mL/min/1.73m2 LUCILLE (test code = LUCILLE) Association [...] imaging tests). Lab Interpretation (test code = 21018-3) [facility]normal [facility] TylerN-TERMINAL [id number] 11:26:47* Test Item Value Reference Range Interpretation Comme nts NT-proBNP (test code = 1592140744) 442 pg/mL See_Comment H [Automated message] The system which generated this result transmitted reference range: <=125. The reference range was not used to interpret this result as normal/abnormal. LUCILLE (test code = LUCILLE) Biotin has been reported to cause a negative bias, interpret results relative to patient's use of biotin. Lab Interpretation (test code = 02021-7) [facility]normal [facility] TylerIRON [id number] 11:19:22* Test Item Value Reference Range Interpretation Comme nts IRON (test code = 0472386535) 34 ug/dL 50-160 L TIBC (test code = 1827366232) 408 ug/dL 250-410 % FE SAT (test code = 1714424207) 8 % 20-50 L Lab Interpretation (test cod e = 58307-1) Abnormal [facility] TylerMAGNESIUM2022-04-05 11:18:47* Test Item Value Reference Range Interpretation Comme nts MAGNESIUM (test code = 8996110378) 1.9 mg/dL 1.7-2.4 Lab Interpretation (test cod e = 32358-3) Normal [facility] TylerPHOSPHORUS2022-04-05 11:18:02* Test Item Value Reference Range Interpretation Comme nts PHOSPHORUS (test code = 2145112588) 3.3 mg/dL 2.5-5.0 Lab Interpretation (test cod e = 56954-4) [facility] TylerLIPID PANEL (21299)(TOTAL CHOLESTEROL, TRIGLYCERIDES, HDL)2021-12-06 11:09:41* Test Item Value Reference Range Interpretation Comme nts CHOL (test code = 2462786346) 208 mg/dL 120-200 H HDL (test code = 6439110939) 99 mg/dL >50 HDLC RATIO (test code = 6353145720) See_Comment [Automated [employer] ge] The system which generated this result transmitted reference range: <=4.5. The reference range was not used to interpret this result as normal/abnormal. TRIG (test code = 9619292942) 172 mg/dL 30-170 H LDL CHOL (test code = 09272-4) 75 mg/dL See_Comment [Automated [employer]] The system which generated this result transmitted reference range: <=160. The reference range was not used to interpret this result as normal/abnormal. VLDL (test code = 7155067969) 34 mg/dL 5-60 Lab Interpretation (test code = 73037-8) [facility] TylerURIC [id number] 11:09:21* Test Item Value Reference Range Interpretation Comme nts URIC ACID (test code = 3625080111) 6.1 mg/dL 2.9-6.0 H Lab Interpretation (test cod e = 16806-6) [facility]normal [facility] TylerGLYCOSYLATED HEMOGLOBIN (A1C)2021-12-06 08:48:15* Test Item Value Reference Range Interpretation Comme nts HGB A1C (test code = 4548-4) 5.7 % 4.0-5.7 LUCILLE (test code = LUCILLE) Reference RangesNormal: <5.7%Prediabetes: 5.7 - 6.4%Diabetes: > 6.5% Lab Interpretation (test code = 34860-3) Normal [facility] TylerCBC WITH [id number] 01:01:58* Test Item Value Reference Range Interpretation [...] 32.2 g/dL 31.6-35.1 RDW-SD (test code = 01821-0) 46.4 fL 39.0-49.9 RDW-CV (test code = 788-0) 15.2 % 12.0-15.5 PLT (test code = 777-3) See_Comment H [Automated message] The system which generated this result transmitted reference range: 166 - 358 10*3/?L. The reference range was not used to interpret this result as normal/abnormal. MPV (test code = 31017-0) 10.6 fL 9.5-12.9 NRBC/100 WBC (test code = 2569921593) See_Comment [Automated message] The system which generated this result transmitted reference range: 0.0 - 10.0 /100 WBCs. The reference range was not used to interpret this result as normal/abnormal. NRBC x10^3 (test code = 9694496240) See_Comment [Automated message] The system which generated this result transmitted reference range: 10*3/?L. The reference range was not used to interpret this result as normal/abnormal. SEG % (test code = 13525-2) 83 % 33-76 H BAND % (test code = 59879-7) 4 % 0-1 H LYMPH % (test code = 90496-1) 7 % 14-54 L MONO % (test code = 54200-8) 5 % 0-4 H EOS % (test code = 09374-6) 1 % 0-3 ANC (test code = 753-4) 19.01 10*3/uL 1.88-7.09 H TOXIC CHANGES (test code = 803-7) Present A Lab Interpretation (test code = 23346-3) [facility] TylerTROPONIN [id number] 00:45:54* Test Item Value Reference Range Interpretation Comments TROPONIN I (test code = 9280790677) 0.022 ng/mL See_Comment [Automated message] The system [...] of biotin. Lab Interpretation (test code = 44072-0) [facility] TylerN-TERMINAL [id number] 00:42:51* Test Item Value Reference Range Interpretation Comme nts NT-proBNP (test code = 9334763679) 544 pg/mL See_Comment H [Automated message] The system which generated this result transmitted reference range: <=125. The reference range was not used to interpret this result as normal/abnormal. LUCILLE (test code = LUCILLE) Biotin has been reported to cause a negative bias, interpret results relative to patient's use of biotin. Lab Interpretation (test code = 45673-4) Abnormal [facility] TylerACTIVATED PARTIAL THRMPLAS [id number] 00:36:33* Test Item Value Reference Range Interpretation [...] 30 seconds. Lab Interpretation (test code = 39142-1) [facility]normal [facility] TylerPROTHROMBIN TIME / [id number] 00:34:31* Test Item Value Reference Range Interpretation Comme nts PROTIME PATIENT (test code = 5964-2) See_Comment [Automated [employer]] The system which generated this result transmitted reference range: 12.0 - 14.7 Seconds. The reference range was not used to interpret this result as normal/abnormal. INR (test code = 6301-6) Normal INR <1.1; Warfarin Therapeutic range 2.0 to 3.0 or 2.5 to 3.5, depending upon the indications. Lab Interpretation (test code = 06649-5) [facility] TylerCOMP. METABOLIC PANEL (23220)2021-12-06 00:34:11* Test Item Value Reference Range Interpretation Comme [facility] NA (test code = 1470783886) 141 mmol/L 135-145 K (test code = 4757043340) 3.9 mmol/L 3.5-5.0 CL (test code = 4399990824) 104 mmol/L 98-108 CO2 TOTAL (test code = 1856231852) 27 mmol/L 23-31 AGAP (test code = 6819307125) 2-16 BUN (test code = 9441203860) 24 mg/dL 7-23 H GLUCOSE (test code = 3886728046) 117 mg/dL 70-110 H CREATININE (test code = 9945254146) 0.96 mg/dL 0.50-1.04 TOTAL BILI (test code = 4295259259) 0.4 mg/dL 0.1-1.1 CALCIUM (test code = 1043093912) 8.9 mg/dL 8.6-10.6 T PROTEIN (test code = 7153377849) 6.5 g/dL 6.3-8.2 ALBUMIN (test code = 1792411232) 4.0 g/dL 3.5-5.0 ALK PHOS (test code = 7126724760) 107 U/L 34-122 ALTv (test code = 1742-6) 49 U/L 5-35 H AST(SGOT) (test code = 2699881961) 44 U/L 13-40 H eGFR (test code = 5925087311) mL/min/1.73m2 LUCILLE (test code = LUCILLE) Association [...] imaging tests). Lab Interpretation (test code = 86424-3) [facility]:14* Test Item Value Reference Range Interpretation Comme nts Procalcitonin (test code = 6386214344) 0.11 ng/mL <0.08 H LUCILLE (test code [...] lung abscess/empyema. For further information please refer to:[email or web address] Lab Interpretation (test code = 43411-3) Abnormal [facility] Acid Whole [id number] 15:26:51* Test Item Value Reference Range Interpretation Comme nts LACTIC ACID (test code = 7760952685) 2.36 mmol/L 0.50-2.20 H Lab Interpretation (test cod e = 62841-0) Abnormal [facility] with Zxxaxkbozqyc1658-70-01 09:45:08* Test Item Value Reference Range Interpretation [...] 32.1 g/dL 31.6-35.1 RDW-SD (test code = 12406-6) 48.3 fL 39.0-49.9 RDW-CV (test code = 788-0) 15.2 % 12.0-15.5 PLT (test code = 777-3) See_Comment [Automated message] The system which generated this result transmitted reference range: 166 - 358 10*3/?L. The reference range was not used to interpret this result as normal/abnormal. MPV (test code = 31679-9) 10.3 fL 9.5-12.9 NRBC/100 WBC (test code = 5924682220) See_Comment [Automated message] The system which generated this result transmitted reference range: 0.0 - 10.0 /100 WBCs. The reference range was not used to interpret this result as normal/abnormal. NRBC x10^3 (test code = 4940050485) See_Comment [Automated message] The system which generated this result transmitted reference range: 10*3/?L. The reference range was not used to interpret this result as normal/abnormal. GRAN MAT (NEUT) % (test code = 770-8) 90.3 % IMM GRAN % (test code = 0247184704) 1.20 % LYMPH % (test code = 736-9) 5.8 % MONO % (test code = 5905-5) 2.6 % EOS % (test code = 713-8) 0.0 % BASO % (test code = 706-2) 0.1 % GRAN MAT x10^3(ANC) (test code = 8399414484) 19.89 10*3/uL 1.88-7.09 H IMM GRAN x10^3 (test code = 2347667768) 0.27 10*3/uL 0.00-0.06 H LYMPH x10^3 (test code = 731-0) 1.28 10*3/uL 1.32-3.29 L MONO x10^3 (test code = 742-7) 0.57 10*3/uL 0.33-0.92 EOS x10^3 (test code = 711-2) <0.03 0.03-0.39 L BASO x10^3 (test code = 704-7) 0.03 10*3/uL 0.01-0.07 POLYCHROMASIA (test code = 11530-6) 2+ See_Comment [Automated message] The system which generated this result transmitted reference range: 2+. The reference range was not used to interpret this result as normal/abnormal. TOXIC CHANGES (test code = 803-7) Present A Lab Interpretation (test code = 95101-1) Abnormal [facility] Metabolic Panel (NA, K, CL, CO2, GLUCOSE, BUN, CREATININE, CA)2021-12-04 09:38:00* Test Item Value Reference Range Interpretation Comme nts NA (test code = 1159414578) 137 mmol/L 135-145 K (test code = 9787199230) 3.7 mmol/L 3.5-5.0 CL (test code = 1462657166) 107 mmol/L 98-108 CO2 TOTAL (test code = 6079855520) 21 mmol/L 23-31 L AGAP (test code = 8971598582) 2-16 BUN (test code = 0857025414) 19 mg/dL 7-23 GLUCOSE (test code = 5440558427) 149 mg/dL 70-110 H CREATININE (test code = 0065210329) 1.00 mg/dL 0.50-1.04 CALCIUM (test code = 7091281252) 8.8 mg/dL 8.6-10.6 eGFR (test code = 4140212741) mL/min/1.73m2 LUCILLE (test code = LUCILLE) Association [...] imaging tests). Lab Interpretation (test code = 95761-8) [facility] Xoyse3727-94-34 09:20:11* Test Item Value Reference Range Interpretation Comme nts LACTIC ACID (test code = 5782634449) 3.77 mmol/L 0.50-2.20 H Lab Interpretation (test cod e = 18570-6) [facility] 23:35:41* Test Item Value Reference Range Interpretation Comme nts APPEARANCE (test code = 9539962693) Clear Clear COLOR (test code = 8633870618) Yellow Yellow PH (test code = 0456394918) 4.8-8.0 SP GRAVITY (test code = 7264231241) 1.003-1.030 GLU U QUAL (test code = 4909355699) Normal Normal BLOOD (test code = 0127542710) Negative Negative Interference fro m ascorbic acid may cause false negative results. KETONES (test code = 5765034523) Negative Negative PROTEIN (test code = 2887-8) Negative Negative UROBILIN (test code = 7797581124) Normal Normal BILIRUBIN (test code = 5953329360) Negative Negative NITRITE (test code = 5813857070) Negative Negative [place] (test code = 1876296345) Negative Negative RBC/HPF (test code = 1423993683) See_Comment [Automated messa ge] The system which generated this result transmitted reference range: 0 - 3 HPF. The reference range was not used to interpret this result as normal/abnormal. WBC/HPF (test code = 1141922825) See_Comment [Automated messa ge] The system which generated this result transmitted reference range: 0 - 5 HPF. The reference range was not used to interpret this result as normal/abnormal. BACTERIA (test code = 4143100410) Negative Negative SQ EPITH (test code = 2145962433) See_Comment H [Automated messa ge] The system which generated this result transmitted reference range: <=2 HPF. The reference range was not used to interpret this result as normal/abnormal. Lab Interpretation (test code = 55658-6) [facility]normal [facility] TylerCBC WITH RWLN7627-01-13 21:54:52* Test Item Value Reference Range Interpretation [...] 31.6 g/dL 31.6-35.1 RDW-SD (test code = 20453-0) 48.1 fL 39.0-49.9 RDW-CV (test code = 788-0) 15.3 % 12.0-15.5 PLT (test code = 777-3) See_Comment [Automated message] The system which generated this result transmitted reference range: 166 - 358 10*3/?L. The reference range was not used to interpret this result as normal/abnormal. MPV (test code = 66539-6) 10.1 fL 9.5-12.9 NRBC/100 WBC (test code = 7087535936) See_Comment [Automated message] The system which generated this result transmitted reference range: 0.0 - 10.0 /100 WBCs. The reference range was not used to interpret this result as normal/abnormal. NRBC x10^3 (test code = 8874455490) See_Comment [Automated message] The system which generated this result transmitted reference range: 10*3/?L. The reference range was not used to interpret this result as normal/abnormal. GRAN MAT (NEUT) % (test code = 770-8) 90.9 % IMM GRAN % (test code = 4497273152) 0.80 % LYMPH % (test code = 736-9) 6.4 % MONO % (test code = 5905-5) 1.8 % EOS % (test code = 713-8) 0.0 % BASO % (test code = 706-2) 0.1 % GRAN MAT x10^3(ANC) (test code = 0606473964) 17.07 10*3/uL 1.88-7.09 H IMM GRAN x10^3 (test code = 3150589590) 0.15 10*3/uL 0.00-0.06 H LYMPH x10^3 (test code = 731-0) 1.20 10*3/uL 1.32-3.29 L MONO x10^3 (test code = 742-7) 0.34 10*3/uL 0.33-0.92 EOS x10^3 (test code = 711-2) <0.03 0.03-0.39 L BASO x10^3 (test code = 704-7) <0.03 0.01-0.07 TOXIC CHANGES (test code = 803-7) Present A Lab Interpretation (test code = 45177-9) [facility] TylerN-TERMINAL NEZ-VGN6278-04-02 21:47:46* Test Item Value Reference Range Interpretation Comme nts NT-proBNP (test code = 7653502253) 662 pg/mL See_Comment H [Automated message] The system which generated this result transmitted reference range: <=125. The reference range was not used to interpret this result as normal/abnormal. LUCILLE (test code = LUCILLE) Biotin has been reported to cause a negative bias, interpret results relative to patient's use of biotin. Lab Interpretation (test code = 09268-7) [facility] TylerTROPONIN [id number] 21:47:46* Test Item Value Reference Range Interpretation Comments TROPONIN I (test code = 2719695429) 0.007 ng/mL See_Comment [Automated message] The system [...] of biotin. Lab Interpretation (test code = 60598-4) Normal [facility] TylerAMYLASE2022-04-02 21:36:08* Test Item Value Reference Range Interpretation Comme nts KIERA (test code = 1632560942) 66 U/L 35-110 Lab Interpretation (test cod e = 36430-4) [facility] TylerLIPASE2022-04-02 21:36:08* Test Item Value Reference Range Interpretation Comme nts LIPASE (test code = 6681424718) 83 U/L 0-220 Lab Interpretation (test cod e = 41596-4) [facility] TylerCOMP. METABOLIC PANEL (32102)2021-12-03 21:36:08* Test Item Value Reference Range Interpretation Comme nts NA (test code = 9756998164) 137 mmol/L 135-145 K (test code = 7898289409) 4.5 mmol/L 3.5-5.0 CL (test code = 1052756185) 107 mmol/L 98-108 CO2 TOTAL (test code = 8938024238) 20 mmol/L 23-31 L AGAP (test code = 4166314263) 2-16 BUN (test code = 4313487076) 20 mg/dL 7-23 GLUCOSE (test code = 5212667601) 140 mg/dL 70-110 H CREATININE (test code = 4421103591) 0.97 mg/dL 0.50-1.04 TOTAL BILI (test code = 1298450087) 0.3 mg/dL 0.1-1.1 CALCIUM (test code = 4023124499) 8.9 mg/dL 8.6-10.6 T PROTEIN (test code = 6710584599) 7.1 g/dL 6.3-8.2 ALBUMIN (test code = 0083308689) 4.3 g/dL 3.5-5.0 ALK PHOS (test code = 6409483145) 97 U/L 34-122 ALTv (test code = 1742-6) 56 U/L 5-35 H AST(SGOT) (test code = 3326147102) 38 U/L 13-40 eGFR (test code = 1950727865) mL/min/1.73m2 LUCILLE (test code = LUCILLE) Association [...] imaging tests). Lab Interpretation (test code = 52466-5) [facility] Tyler[facility] ABG + LACTIC [id number] 21:21:29* Test Item Value Reference Range Interpretation Comme nts PH (test code = 2) 7.35-7.45 PCO2 (test code = 2664257637) See_Comment L [Automated [employer]] The system which generated this result transmitted reference range: 35 - 45 mmHg. The reference range was not used to interpret this result as normal/abnormal. PO2 (test code = 0655411138) See_Comment [Automated [employer]] The system which generated this result transmitted reference range: 80 - 100 mmHg. The reference range was not used to interpret this result as normal/abnormal. HCO3 (test code = 9625410354) See_Comment [Automated [employer]antsMea ge] The system which generated this result transmitted reference range: 22 - 26 mEq/L. The reference range was not used to interpret this result as normal/abnormal. BE (test code = 3644921357) See_Comment [Automated [employer]ants[employer] ge] The system which generated this result transmitted reference range: -3.0 - 3.0 mEq/L. The reference range was not used to interpret this result as normal/abnormal. LACTIC ACID (test code = 3545424702) 2.96 mmol/L 0.50-2.20 H Lab Interpretation (test code = 81300-1) Abnormal [facility] Metabolic Panel (NA, K, CL, CO2, GLUCOSE, BUN, CREATININE, CA)2021-11-10 09:40:55* Test Item Value Reference Range Interpretation Comme nts NA (test code = 9965719544) 138 mmol/L 135-145 K (test code = 7466335095) 3.4 mmol/L 3.5-5.0 L CL (test code = 4684799464) 107 mmol/L 98-108 CO2 TOTAL (test code = 3866049939) 25 mmol/L 23-31 AGAP (test code = 9171400376) 2-16 BUN (test code = 8843909124) 15 mg/dL 7-23 GLUCOSE (test code = 7937615353) 110 mg/dL 70-110 CREATININE (test code = 3141185750) 0.81 mg/dL 0.50-1.04 CALCIUM (test code = 6381682336) 7.8 mg/dL 8.6-10.6 L eGFR (test code = 6032640666) mL/min/1.73m2 LUCILLE (test code = LUCILLE) Association [...] imaging tests). Lab Interpretation (test code = 73228-9) Abnormal [facility] with Odmqtgyjqhkq0682-02-93 09:25:30* Test Item Value Reference Range Interpretation Comme nts WBC (test code = 6690-2) See_Comment H [Automated [employer]] The system which generated this result transmitted reference range: 4.30 - 11.10 10*3/?L. The reference range was not used to interpret this result as normal/abnormal. RBC (test code = 789-8) See_Comment L [Automated [employer]] The system which generated this result transmitted [...] g/dL 31.6-35.1 L RDW-SD (test code = 30247-9) 57.2 fL 39.0-49.9 H RDW-CV (test code = 788-0) 17.0 % 12.0-15.5 H PLT (test code = 777-3) See_Comment [Automated [employer]ants[employer] ge] The system which generated this result transmitted reference range: 166 - 358 10*3/?L. The reference range was not used to interpret this result as normal/abnormal. MPV (test code = 18950-2) 9.2 fL 9.5-12.9 L NRBC/100 WBC (test code = 1967267452) See_Comment [Automated [employer]] The system which generated this result transmitted reference range: 0.0 - 10.0 /100 WBCs. The reference range was not used to interpret this result as normal/abnormal. NRBC x10^3 (test code = 3898647129) See_Comment [Automated [employer]ants[employer] ge] The system which generated this result transmitted reference range: 10*3/?L. The reference range was not used to interpret this result as normal/abnormal. GRAN MAT (NEUT) % (test code = 770-8) 72.2 % IMM GRAN % (test code = 4507356918) 1.30 % LYMPH % (test code = 736-9) 18.9 % MONO % (test code = 5905-5) 6.3 % EOS % (test code = 713-8) 1.2 % BASO % (test code = 706-2) 0.1 % GRAN MAT x10^3(ANC) (test code = 1193589065) 8.06 10*3/uL 1.88-7.09 H IMM GRAN x10^3 (test code = 3928102900) 0.14 10*3/uL 0.00-0.06 H LYMPH x10^3 (test code = 731-0) 2.10 10*3/uL 1.32-3.29 MONO x10^3 (test code = 742-7) 0.70 10*3/uL 0.33-0.92 EOS x10^3 (test code = 711-2) 0.13 10*3/uL 0.03-0.39 BASO x10^3 (test code = 704-7) <0.03 0.01-0.07 Lab Interpretation (test code = 10713-8) Abnormal [facility] Acid Whole Wbdxn2699-03-43 09:22:39* Test Item Value Reference Range Interpretation Comme nts LACTIC ACID (test code = 1355247301) 3.32 mmol/L 0.50-2.20 H Lab Interpretation (test cod e = 76061-5) [facility] TylerACTIV[facility] PART[facility] THRMPLAS ZSV6351-10-79 02:13:42* Test Item Value Reference Range Interpretation Comme nts APTT Patient (test code = 3173-2) See_Comment L [Automated messa ge] The system which generated this result transmitted reference range: 26 - 36 Seconds. The reference range was not used to interpret this result as normal/abnormal. Lab Interpretation (test code = 68264-4) [facility]normal [facility] TylerPROTHROMBIN TIME / IMM7911-91-65 02:13:42* Test Item Value Reference Range Interpretation Comme [facility] PROTIME PATIENT (test code = 5964-2) See_Comment [Automated [employer]antsMea ge] The system which generated this result transmitted reference range: 10.1 - 12.6 Seconds. The reference range was not used to interpret this result as normal/abnormal. INR (test code = 6301-6) Normal INR <1.1; Warfarin Therapeutic range 2.0 to 3.0 or 2.5 to 3.5, depending upon the indications. Lab Interpretation (test code = 67513-0) [facility] TylerD-OMLPJ0754-38-02 02:13:42* Test Item Value Reference Range Interpretation Comments D-DIMER (test code = 7114799346) See_Comment H [Automated message] The system which [...] a diagnosis. Lab Interpretation (test code = 69906-0) Abnormal [facility]. METABOLIC PANEL (28401)2021-11-10 01:57:17* Test Item Value Reference Range Interpretation Comme nts NA (test code = 0161610465) 139 mmol/L 135-145 K (test code = 1522664064) 3.9 mmol/L 3.5-5.0 CL (test code = 1194687536) 106 mmol/L 98-108 CO2 TOTAL (test code = 2960608308) 27 mmol/L 23-31 AGAP (test code = 7824365126) 2-16 BUN (test code = 2066425970) 17 mg/dL 7-23 GLUCOSE (test code = 3585972399) 135 mg/dL 70-110 H CREATININE (test code = 8999905488) 0.72 mg/dL 0.50-1.04 TOTAL BILI (test code = 9356950575) 0.3 mg/dL 0.1-1.1 CALCIUM (test code = 7910328314) 8.1 mg/dL 8.6-10.6 L T PROTEIN (test code = 5236745371) 5.6 g/dL 6.3-8.2 L ALBUMIN (test code = 8601922953) 3.3 g/dL 3.5-5.0 L ALK PHOS (test code = 5468331711) 126 U/L 34-122 H ALTv (test code = 1742-6) 47 U/L 5-35 H AST(SGOT) (test code = 4379386282) 27 U/L 13-40 eGFR (test code = 0924164770) mL/min/1.73m2 LUCILLE (test code = LUCILLE) Association [...] imaging tests). Lab Interpretation (test code = 16423-3) [facility] + LACTIC KRAQ2213-44-12 01:51:44* Test Item Value Reference Range Interpretation Comme nts PH (test code = 2) 7.35-7.45 PCO2 (test code = 5389436424) See_Comment [Automated [employer]] The system which generated this result transmitted reference range: 35 - 45 mmHg. The reference range was not used to interpret this result as normal/abnormal. PO2 (test code = 1195978321) See_Comment L [Automated [employer]Mea ge] The system which generated this result transmitted reference range: 80 - 100 mmHg. The reference range was not used to interpret this result as normal/abnormal. HCO3 (test code = 7576113060) See_Comment [Automated [employer]] The system which generated this result transmitted reference range: 22 - 26 mEq/L. The reference range was not used to interpret this result as normal/abnormal. BE (test code = 5018702069) See_Comment [Automated [employer]] The system which generated this result transmitted reference range: -3.0 - 3.0 mEq/L. The reference range was not used to interpret this result as normal/abnormal. LACTIC ACID (test code = 3650951553) 4.25 mmol/L 0.50-2.20 H QUES Lab Interpretation (test code = 30333-0) Abnormal [facility] WITH [id number] 01:50:58* Test Item Value Reference Range Interpretation [...] g/dL 31.6-35.1 L RDW-SD (test code = 94089-5) 55.7 fL 39.0-49.9 H RDW-CV (test code = 788-0) 16.8 % 12.0-15.5 H PLT (test code = 777-3) See_Comment [Automated message] The system which generated this result transmitted reference range: 166 - 358 10*3/?L. The reference range was not used to interpret this result as normal/abnormal. MPV (test code = 73007-0) 9.5 fL 9.5-12.9 NRBC/100 WBC (test code = 2634067574) See_Comment [Automated message] The system which generated this result transmitted reference range: 0.0 - 10.0 /100 WBCs. The reference range was not used to interpret this result as normal/abnormal. NRBC x10^3 (test code = 7291458257) <0.01 See_Comment [Automated message] The system which generated this result transmitted reference range: 10*3/?L. The reference range was not used to interpret this result as normal/abnormal. GRAN MAT (NEUT) % (test code = 770-8) 84.7 % IMM GRAN % (test code = 2174366313) 0.80 % LYMPH % (test code = 736-9) 10.9 % MONO % (test code = 5905-5) 3.4 % EOS % (test code = 713-8) 0.1 % BASO % (test code = 706-2) 0.1 % GRAN MAT x10^3(ANC) (test code = 5104415772) 11.84 10*3/uL 1.88-7.09 H IMM GRAN x10^3 (test code = 5395434640) 0.11 10*3/uL 0.00-0.06 H LYMPH x10^3 (test code = 731-0) 1.52 10*3/uL 1.32-3.29 MONO x10^3 (test code = 742-7) 0.47 10*3/uL 0.33-0.92 EOS x10^3 (test code = 711-2) <0.03 0.03-0.39 L BASO x10^3 (test code = 704-7) <0.03 0.01-0.07 Lab Interpretation (test code = 55521-5) Abnormal [facility] [id number] 21:38:57* Test Item Value Reference Range Interpretation Comme nts Case Report (test code = 8456811353) Non-Gynecologic Cytology ?Case: [id number] ?Authorizing Provider: ?Anaya Kline MD ? ? Collected: ? 10/21/2021 1249 ?Ordering Location: ? ? [facility] ?Received: ?10/21/2021 1257 ? Medicine/Surgery [facility] 7B ?Pathologist: ? Glenna Alejandra MD ? Specimen: ? ?LUNG, LEFT UPPER LOBE, BRONCHOALVEOLAR LAVAGE ? Final Diagnosis (test code = 1644894870) x0rtvSMdIDHjd0caOGIiePEu ZzEwMzNcZnRuYmpcdWMxIHtc cnRmMVxlcGljOTYwMVxhbnNp DUNxjGQfB3IqkyglRQmaFR3h CQ7irKqnoRJebEVvVXIsFcUl t6qft366xRWpz3veMHOWixch eIu8yLioZ79xx3C5QhzzS7du ZWQwXGdyZWVuMFxibHVlMDt9 XHBhcGVydzEyMjQwXHBhcGVy iWH9NKFsQX1rqdwhNYkhFHks ARCsqqP4MDWxnOPgA9YeVDBb UB2tkxmxFID7LLvsRHMrMNQ4 KtQsDZMlp7Mlmcv2MmRzvKWv ZFxwbGFpblxmczIwXHBhclxi IEExLiAgTFVORywgTEVGVCBV OMXKOnHXY6UGRlHGYi4SX7hF WSgWJL0RBXKtUZEYFSqUYoif TKKiMbRyXWCbFtynGbSqBr7l BYCRIQnBWZ7QHVYGXRrBNBaY TY6QQIXGTDNfUYmwRHRaF5FT TIOPOO9NIdGtIWZgbifpWzNq iPXgeErwtrUiRCfxr6GqI3Mv MjAwMFxhbnNpXGRlZmxhbmcx YHRfHYR3jgJdBHPiHHlgPMCa RRvxOl3dlAVfvRstIfErIYGt l5lvyzTGOMmgDdTwV860KGMd CFzye1usb3KiDVMnuANag9I4 NWRHiezteFs8y0ijYkXwKgQ3 mBBwSLxgI1kncbPhiVSiQ2Il hOWyqQf1qEniU99kq8D8Ghwq U0baOHQrBGChZ5CcSB8tXEVa Pal1IKN3IGH0OSYuIDJrS4Ai RK5qMBKncLWbTNr7d0kagQqb UUVrSXL4r1sqVVjlbtR4QG0x eq0xrZo5z1rqmfKxKZYbOSNd dJYNKXBsO8HddNjuIh0pyLq0 pQonImxtIHH2Fyu7NO0vvu38 exz2qWmhIWVwiamkOrO0UWxu LGMjkyetKSe5IAdvRLJqkMZ9 VNThiACoR8JhKOJyTS6wkst3 ITG4GGexIWNjGjW6AKLnqVRy YWYpvOdwVXyid255PJS5WpNh XT4hV0Vhz2M1wA1ysAHzPTNg nXNvCwIiJBDvbe5dnOAsVLit k6AtQXW7pcJ9tMEdhTVwPTLw IA32Eizfz6FiIojpNOR8EDHd vnZuy2Dcc8uqIoYlamSkJ9dk C9DzNFDsJORvWSFiYjFdrtVk y0Ols1ZleOXlcLb5m9xxTDTf BVMxvAthg5eaVMZ2PNXuW9V6 mFXay0fuJQenZSToaNH7kcY1 LBTnuTUeF2DaiS4rYEEsNN4l kxh8p6jrYJO4NHgzNRDnSwJ6 hnM0DDUirBJvDNCmhFueMQgd b220FFZ4QqBuHVYzd5YjI8Jo lRixB67xfYpaQ48yOPXtiLdp vO3qrSyuuX4lKiFeSzZnKRid bFxwbGFpblxmMVxmczIwXGxh dnuuTUXzYTuwG9jvShPcFHOw mLdqBFcmz9EyDBQtGCCpLrjw czIwXHBhciBJIGhhdmUgcGVy r20jKGzfiXZqJTVkAPnyXEZo cMyia0XnT5soOH7qN7LbxTYl ccWisaDxPXgrKGNht4r2jIPp eTwki4XajJAeWF16kkFdBGSf YEF4TKWpq9qmVQ27tbpwWsLu wV09cvPwjrQsNYGeu2trI1gl uDVvc0Ihj4SrqfGePFhrl0Up BI3utYXfigrsgYK4FWJbqOZn sgKjfuZ4bAvpQJMqkB6iuM1l tQkhwL0tVqXnNoTqPIilRH1r YXOpW1wzcLUfCQCgOGVxQ8qx JaLznJ2ccVfhAjqohtX6IQIv cn19 Final Diagnosis Comment (test code = 5709236570) m0fzuFTvYVEliJX9AhIwJCZv u8tiv0DrwACnpNUsEXgskVSu spNnzy95yQV1bU60CD4sXJZd RpW9UYStjhX8Fva3XODwCAXm zRHnJ388j1lxk0glfqQboXA2 JYGjAEYeR2DtRC0fFUJgzMYu N62ckVIqRYY1HNIaUVEsxXKw HWBoKVE7UBOpjRIrL7gzSNHl ZP3lnxdbAUphRAjzFFIvvKN0 IFPpmUEqE1IqZNQdWQdiDRZs waz6LbUwAe5tkBYedTecSZkv SDGrVKYpRDrhSZEdOcJaL96y SRUlLRPxi1btwX9thNu2KRTq y06avU5xPESuvTdhoThbyDQi NNhcujPnjbCpTmS1EBYylmQn kRAuNM1sQ5UmzYivX3UwEyWK JOOkPBtyj9OqYW0oDQY7yPTy ZcPjayV0zW5yhYNccjBmWKBa CnFtH5BjAX2fKT1dsFpgpwRt dCBjZWxscyBpZGVudGlmaWVk TgqsANAzU5AnGWImka5= Clinical Information (test code = 7720956172) 1. Pneumonia / covid / SARS Gross Description (test code = 0808706841) e1qojARsMSAofWG0UvPfCQDx i8ymc5IuuCRrvXDcOUxzxZLk bkVmyz03bLS2jC50HS5dYILf FvG6SYXjhkU6Odl0POHcLGHh lVQxH886d7vbl5buyqCpaJT3 XQUuCBLuG9AxDV0kFZKfoNUb O65fxVHmHTK4PSCiANCpoQYg TECsRAF0RLPfqXGbB3wgWYKy TH4ednfkDAjaPRlhANUzaBL0 HIUtnKThT2KdSJLgQAxtLKCx mgo2LfKcKj9bnQFtwEdtFHpz MUEir9xmNHGzlQSkZJV1DNdf pEGlCLDcCOYjONf0JKXiWOge vMIgLI1gqTxkZyrmeAjfl2Ma dCBcXGlkIDUxMDAyIFxcZGIg T1RNPVFpLeUkPck1RLGbXPq1 FFt9PR1YPmQkSBLrEkw1IHWc PoUqZAy0OPmgOC2AEYF2CaL2 KSErMojoPPGgNyOpVWj1WHVa XFxmbCBcXGYgQXJpYWwgXFxm gyTzLVKoUA7yxPxcuPZpyjsu czIwXHBhclxmczIyXHBhciBB ZR3vGEdGQnhdEMwYIxNnEJXW LQJfMN1ISKyrOuEXZqASU9RF VkVPTEFSIExBVkFHRVxwYXJc IpFoZZhpVrVcRpKoOLt2EKUc HhOva7yudXWrS0OvygDmNCOr vERsFSM5ZERbT7Tqt4PtQ3dn VOPlAuv2uUKoteMwAOi1QYHx QwMcq3bliWGvPDPuXDZrlcVz ULIbq7ytRETuUNePrDQpn6Ks sxSqkdLsHKNcjLctdxV1ZKNz Ll0bOX4zt4VfmBYgmrOfVPXZ USYdnockg8crc3Mzs4OxwQ2f ZClcZnMyMlxjZjAgIHtcZXBp S5HjN9IpvpP3n2ndgVbow9Or cHTdGN1edTSvhJ== Disclaimer (test code = [id number]) g1arvYMqFOGqe1fpOLMecTDu ZzEwMzNcZnRuYmpcdWMxIHtc baPsQIqcl4WmW9ElQuWnHPbf bnNpXGRlZmxhbmcxMDMzXGZ0 xuFlNOAmYKbzHGPfMFrnUw2m cEWvfXmlEuRnORYwd2kddwBN HMlyJiVkC578QRIuRJovl6nr b7MmGFKnkDEyg2B0UZLNtvkj sQg5qCzgT36hn1B7TdomR6zo ROWtFARlF6AaFN7lLRDfGic3 SLJ7SAI4XDHeSDCuP5ElZE4h MRWlvLStLJr5m1crjZgzENAw GPF5v1twJSinafTbTE8nnd5f rUx6h5kmktUqMNZeLPIcbDQE JTVnM5QpjGrgGz3tdOe4kLav SrbvGTG6Cuo0MG5pav24thg9 cUbqDBFigovdIlY4VIiqKDHc fbdcMCc9GRpyHQJwrXR4JDTl sNQtF1DxBSBdUX3klqi9KLS2 LBueGGBrNtF9HBPicMFbXIJm pGgvLVctg012XYW4CtEzJZ9u A6Kpe9X2lG1uoBTwKGPjrPKt FnPmBYBpvx3qvTNcPOplk1Et YHF3nvK6vUIiqXIsMWBrMP61 Bmkou0RhUqzsz5PmW67rhWU1 ESmfs9srEK9fLzC3qkDyMPgm f5wsbM4dHwK2LXfyQY2bGT0z XBMoaX0kfcyuDDTpMnSonczv ZBQjmFoprrZyVv2iuQmfYFK5 VXytY0vduR7cNfD7ARqkW0gy zM8pJHe0ZXywfZV9BUQexW0w BL6yschgt1smSQrmURrkNOYe ccZ9ucL0TCJhcXIoA7OajO3m GXYqPU9ocsosw3gdEIJ2CGge KHCcSAZ4WtNtEZQle3Ibtbc4 EeIdt0ZrxMIcEMdeD73sp734 ALPvphLdI1svfARonnxmePQs acgdKRbzxjW1TZLgriYog3Aj TITbMSK7SNbiNVwjxCDzANJf vYkti6toU4JqgBVmFGDvMMvo XGYxXGZzMjBcbGFuZzEwMzNc aGljaFxmMVxkYmNoXGYxXGxv M0adKhBeI7BlODMxEzFagTUa I7koFRbvilXpEERridFxlXQ8 SSkdQ9i7ZBCjpwXfcTh8ujMb EtMnHSBsHJG1OSkqoWEhHWZu a5InccbulKYaMf9rnKEcXVLn rO3gNSScJZVpOPolBT3zeFr4 LDCUsVXmrRIwUbZEPYEwNP34 tdBwQTTRydpvi0M1LNzmQHYq f1EioPPaQ8pba3MyMZKic37m DL2ew4J1w5bmUYQ6WH9hs1Wm VRRozRMssTTuZTYal3Sbduuw m2BrMQXigbDae3UaLMIrkoZb lQEgCXKjylUjti2vnlMpOQWg AGBrJ2RqtgqcwEakkpNqZKBs aw9abtQxVVR3TMQNJPYhFVJt l8TvrK2fbZQNDWE7xBZhgn8g qdNYqHVpLLXyqh37UQYiXN5h W6crHYQtPBYrypLpmZJtj4Zy RVWoaLM7iMPnUO1TJiJPr22f IGFuZCBEcnVnIEFkbWluaXN0 cqD1vR7oHRaWQCHjRkv+IFRo NVONSPYnLJ3lsnIbh0BnjdHt lQphRKXxcZHnz6RiwOWdo0Fd gDreo7RaaUIntPDmDW2tWEHs clxwYXIgVVRNQiBMYWJvcmF0 m1RvXYLnPOKaQWV7qJfskpx9 TOJfsW2iKGCrR6eyaylpSFvm UNVdb3IvrB2ioLLDdFRpr8Yv jNRhhQKDwMPrOK5mqqOgPToK NCwITTF3dcKlVZZea5ZqCLvz X4syZ79mrXlvmEu2qRM2ESN2 tN7nGlm+IFxwYXJccGFyIEFw oGTkhZHlCIDebTcvaoLpS3Fb tcCwoI7xcVVexkUhVR8cKN0n W9P3xZKbWAAgqvXpj3kbAVfo dmUgYmVlbiByZXZpZXdlZCBm o6WcLYcdELA9PWbygsOrliJs dWRpbmcgSCZFLCBTcGVjaWFs SUL0BGzearRoqlEwYL4crN6m gQsyoN8ftWDxzVK1prbxUAKk CFZcwAmsCAJyFA4lgAPuFBNf vaUSoXpqqPMftR1wI7ZnMGQw FVCptw1nQURkqW6zCZltd0Nd addwDPVaBFXuBESgpqQoqe3n RLAocJMOLX3EVSfdmSIje6Xe uzOyX5cHNZP6SNRiViUtHgle ZOIrqOUgvOTuBADwrz33IAXh vL8byKdsCFIsdJ9spP5cmSyu uV0iQjIeOfQgXNxpZR2aYYFb J2rkwFRdXQGyNJSmH1riQhQn iB1hyTklSYexQoBeEyFaSBuv YXJ9fQ== Embedded Images (test code = [id number]) [facility] TylerANTI-NUCLEAR ANTIBODY [id number] 20:07:20* Test Item Value Reference Range Interpretation Comme nts SHIRA (test code = 5404285530) Negative Negative LUCILLE (test code = LUCILLE) [...] reported separately. Lab Interpretation (test code = 38172-4) [facility] (NA, K, CL, CO2, GLUCOSE, BUN, CREATININE, CA)2021-10-24 13:05:02* Test Item Value Reference Range Interpretation Comme nts NA (test code = 9607192452) 134 mmol/L 135-145 L K (test code = 0539045392) 4.5 mmol/L 3.5-5.0 CL (test code = 5525217335) 99 mmol/L 98-108 CO2 TOTAL (test code = 9083818226) 30 mmol/L 23-31 AGAP (test code = 6388430882) 2-16 BUN (test code = 2514100781) 23 mg/dL 7-23 GLUCOSE (test code = 0476769772) 118 mg/dL 70-110 H CREATININE (test code = 9551563692) 0.71 mg/dL 0.50-1.04 CALCIUM (test code = 2938067721) 8.2 mg/dL 8.6-10.6 L eGFR (test code = 3689270569) mL/min/1.73m2 LUCILLE (test code = LUCILLE) Association [...] imaging tests). Lab Interpretation (test code = 20220-0) Abnormal [facility] METABOLIC PANEL (NA, K, CL, CO2, GLUCOSE, BUN, CREATININE, CA)2021-10-24 13:05:02* Test Item Value Reference Range Interpretation Comme nts NA (test code = 9699565537) 134 mmol/L 135-145 L K (test code = 0141435103) 4.5 mmol/L 3.5-5.0 CL (test code = 3234469346) 99 mmol/L 98-108 CO2 TOTAL (test code = 9680888347) 30 mmol/L 23-31 AGAP (test code = 1065518517) 2-16 BUN (test code = 1384897872) 23 mg/dL 7-23 GLUCOSE (test code = 5757128276) 118 mg/dL 70-110 H CREATININE (test code = 1367451578) 0.71 mg/dL 0.50-1.04 CALCIUM (test code = 6715442839) 8.2 mg/dL 8.6-10.6 L eGFR (test code = 5973678362) mL/min/1.73m2 LUCILLE (test code = LUCILLE) Association [...] imaging tests). Lab Interpretation (test code = 97491-3) Abnormal [facility] WITHOUT [id number] 12:51:39* Test Item Value Reference Range Interpretation [...] result as normal/abnormal. MPV (test code = 43278-0) 10.1 fL 9.5-12.9 RDW-CV (test code = 788-0) 14.2 % 12.0-15.5 RDW-SD (test code = 26101-9) 43.8 fL 39.0-49.9 NRBC x10^3 (test code = 9528354571) See_Comment [Automated messa ge] The system which generated this result transmitted reference range: 10*3/?L. The reference range was not used to interpret this result as normal/abnormal. NRBC/100 WBC (test code = 3977409490) See_Comment [Automated messa ge] The system which generated this result transmitted reference range: 0.0 - 10.0 /100 WBCs. The reference range was not used to interpret this result as normal/abnormal. IPF % (test code = 0164026253) Lab Interpretation (test code = 47896-2) Abnormal [facility] WITHOUT [id number] 12:51:39* Test Item Value Reference Range Interpretation [...] result as normal/abnormal. MPV (test code = 80829-1) 10.1 fL 9.5-12.9 RDW-CV (test code = 788-0) 14.2 % 12.0-15.5 RDW-SD (test code = 77478-5) 43.8 fL 39.0-49.9 NRBC x10^3 (test code = 0303114983) See_Comment [Automated messa ge] The system which generated this result transmitted reference range: 10*3/?L. The reference range was not used to interpret this result as normal/abnormal. NRBC/100 WBC (test code = 3684196612) See_Comment [Automated WhoWantsMea ge] The system which generated this result transmitted reference range: 0.0 - 10.0 /100 WBCs. The reference range was not used to interpret this result as normal/abnormal. IPF % (test code = 7212603805) Lab Interpretation (test code = 97045-1) [facility]normal [facility] TylerMYCOBACTERIUM TUBERCULOSIS COMPLEX PCR 2021-10-23 16:23:29* Test Item Value Reference Range Interpretation Comme nts Mycobacterium tuberculosis DNA (test code = 49696-4) Negative Negative LUCILLE (test code = LUCILLE) Method performance specifications have not been established for specimens other than SPUTUM. Results for other tested specimen types should be interpreted based on clinical context. Lab Interpretation (test code = 01385-5) Normal [facility] TylerMYCOBACTERIUM TUBERCULOSIS COMPLEX PCR 2021-10-23 16:23:29* Test Item Value Reference Range Interpretation Comme nts Mycobacterium tuberculosis DNA (test code = 25650-1) Negative Negative LUCILLE (test code = LUCILLE) Method performance specifications have not been established for specimens other than SPUTUM. Results for other tested specimen types should be interpreted based on clinical context. Lab Interpretation (test code = 98556-6) Normal [facility] TylerRESPIRATORY PANEL BY [id number] 20:36:40* Test Item Value Reference Range Interpretation Comme nts Adenovirus (test code = 51302-3) Negative Negative Coronavirus HKU1 (test code = 48571-0) Negative Negative Coronavirus NL63 (test code = 89499-1) Negative Negative Coronavirus 229E (test code = 52391-9) Negative Negative Coronavirus OC43 (test code = 03674-6) Negative Negative Human Metapneumovirus (test code = 59289-7) Negative Negative Human Rhinovirus/Enterovirus (test code = 49587-5) Negative Negative Influenza A (test code = 60556-4) Negative Negative Influenza B (test code = 77757-5) Negative Negative Parainfluenza Virus 1 (test code = 19697-3) Negative Negative Parainfluenza Virus 2 (test code = 62892-9) Negative Negative Parainfluenza Virus 3 (test code = 48323-8) Negative Negative Parainfluenza Virus 4 (test code = 62577-3) Negative Negative Respiratory Syncytial Virus (test code = 38674-5) Negative Negative Bordetella parapertussis (test code = 68043-3) Negative Negative Bordetella pertussis (test code = 92412-8) Negative Negative Chlamydia pneumoniae (test code = 24743-2) Negative Negative Mycoplasma pneumoniae (test code = 84411-2) Negative Negative LUCILLE (test code = LUCILLE) Negative:A negativ e result does not rule-out infection. ?This assay does not test for all potential infectious agents. ? Positive:A positive test result does not necessarily indicate the presence of viable organism. ? Lab Interpretation (test code = 28789-2) Normal [facility] TylerRESPIRATORY PANEL BY [id number] 20:36:40* Test Item Value Reference Range Interpretation Comme nts Adenovirus (test code = 09409-7) Negative Negative Coronavirus HKU1 (test code = 03483-7) Negative Negative Coronavirus NL63 (test code = 25058-1) Negative Negative Coronavirus 229E (test code = 70563-3) Negative Negative Coronavirus OC43 (test code = 40337-6) Negative Negative Human Metapneumovirus (test code = 32707-7) Negative Negative Human Rhinovirus/Enterovirus (test code = 70030-1) Negative Negative Influenza A (test code = 30796-5) Negative Negative Influenza B (test code = 69994-0) Negative Negative Parainfluenza Virus 1 (test code = 71592-3) Negative Negative Parainfluenza Virus 2 (test code = 16301-4) Negative Negative Parainfluenza Virus 3 (test code = 78915-5) Negative Negative Parainfluenza Virus 4 (test code = 07890-1) Negative Negative Respiratory Syncytial Virus (test code = 74551-4) Negative Negative Bordetella parapertussis (test code = 30345-7) Negative Negative Bordetella pertussis (test code = 72340-0) Negative Negative Chlamydia pneumoniae (test code = 03554-0) Negative Negative Mycoplasma pneumoniae (test code = 79256-8) Negative Negative LUCILLE (test code = LUCILLE) Negative:A negativ e result does not rule-out infection. ?This assay does not test for all potential infectious agents. ? Positive:A positive test result does not necessarily indicate the presence of viable organism. ? Lab Interpretation (test code = 08744-6) Normal [facility] TylerANTI-NUCLEAR ANTIBODY-PATHOLOGIST [id number] 19:52:54ANA - Pathologist InterpretationANA HEp-2 IIFA Pathologist [...] female gender. Clinical correlation is recommended. ? (https://pubmed.ncbi.nlm.nih.gov/89691924/) ? If the patient's clinical condition changes/progresses, [...] PM [facility]UT [facility] TylerANTI-NUCLEAR ANTIBODY- PATHOLOGIST [id number] 19:52:54ANA - Pathologist InterpretationANA HEp-2 II Pathologist [...] female gender. Clinical correlation is recommended. ? (https://pubmed.ncbi.nlm.nih.gov/56320998/) ? If the patient's clinical condition changes/progresses, [...] ?1:52 PM [facility]War[facility] WITH [id number] 11:43:17* Test Item Value Reference Range Interpretation [...] 32.1 g/dL 31.6-35.1 RDW-SD (test code = 87621-0) 46.8 fL 39.0-49.9 RDW-CV (test code = 788-0) 14.6 % 12.0-15.5 PLT (test code = 777-3) See_Comment H [Automated message] The system which generated this result transmitted reference range: 166 - 358 10*3/?L. The reference range was not used to interpret this result as normal/abnormal. MPV (test code = 18172-1) 10.2 fL 9.5-12.9 NRBC/100 WBC (test code = 5674471349) See_Comment [Automated message] The system which generated this result transmitted reference range: 0.0 - 10.0 /100 WBCs. The reference range was not used to interpret this result as normal/abnormal. NRBC x10^3 (test code = 8087075714) <0.01 See_Comment [Automated message] The system which generated this result transmitted reference range: 10*3/?L. The reference range was not used to interpret this result as normal/abnormal. GRAN MAT (NEUT) % (test code = 770-8) 93.6 % IMM GRAN % (test code = 9334463383) 2.10 % LYMPH % (test code = 736-9) 2.8 % MONO % (test code = 5905-5) 1.4 % EOS % (test code = 713-8) 0.0 % BASO % (test code = 706-2) 0.1 % GRAN MAT x10^3(ANC) (test code = 3928767102) 17.50 10*3/uL 1.88-7.09 H IMM GRAN x10^3 (test code = 0284115869) 0.40 10*3/uL 0.00-0.06 H LYMPH x10^3 (test code = 731-0) 0.53 10*3/uL 1.32-3.29 L MONO x10^3 (test code = 742-7) 0.26 10*3/uL 0.33-0.92 L EOS x10^3 (test code = 711-2) <0.03 0.03-0.39 L BASO x10^3 (test code = 704-7) <0.03 0.01-0.07 TOXIC CHANGES (test code = 803-7) Present A Lab Interpretation (test code = 06664-4) Abnormal [facility] WITH [id number] 11:43:17* Test Item Value Reference Range Interpretation [...] 32.1 g/dL 31.6-35.1 RDW-SD (test code = 93359-3) 46.8 fL 39.0-49.9 RDW-CV (test code = 788-0) 14.6 % 12.0-15.5 PLT (test code = 777-3) See_Comment H [Automated message] The system which generated this result transmitted reference range: 166 - 358 10*3/?L. The reference range was not used to interpret this result as normal/abnormal. MPV (test code = 20394-3) 10.2 fL 9.5-12.9 NRBC/100 WBC (test code = 7662942280) See_Comment [Automated message] The system which generated this result transmitted reference range: 0.0 - 10.0 /100 WBCs. The reference range was not used to interpret this result as normal/abnormal. NRBC x10^3 (test code = 9306577070) <0.01 See_Comment [Automated message] The system which generated this result transmitted reference range: 10*3/?L. The reference range was not used to interpret this result as normal/abnormal. GRAN MAT (NEUT) % (test code = 770-8) 93.6 % IMM GRAN % (test code = 7896943492) 2.10 % LYMPH % (test code = 736-9) 2.8 % MONO % (test code = 5905-5) 1.4 % EOS % (test code = 713-8) 0.0 % BASO % (test code = 706-2) 0.1 % GRAN MAT x10^3(ANC) (test code = 6921897133) 17.50 10*3/uL 1.88-7.09 H IMM GRAN x10^3 (test code = 1236909168) 0.40 10*3/uL 0.00-0.06 H LYMPH x10^3 (test code = 731-0) 0.53 10*3/uL 1.32-3.29 L MONO x10^3 (test code = 742-7) 0.26 10*3/uL 0.33-0.92 L EOS x10^3 (test code = 711-2) <0.03 0.03-0.39 L BASO x10^3 (test code = 704-7) <0.03 0.01-0.07 TOXIC CHANGES (test code = 803-7) Present A Lab Interpretation (test code = 24439-0) Abnormal [facility] METABOLIC PANEL (NA, K, CL, CO2, GLUCOSE, BUN, CREATININE, CA)2021-10-22 11:20:32* Test Item Value Reference Range Interpretation Comme nts NA (test code = 1270005050) 136 mmol/L 135-145 K (test code = 2827331185) 4.3 mmol/L 3.5-5.0 CL (test code = 1502165800) 103 mmol/L 98-108 CO2 TOTAL (test code = 0293637662) 26 mmol/L 23-31 AGAP (test code = 8565318411) 2-16 BUN (test code = 4529255585) 18 mg/dL 7-23 GLUCOSE (test code = 7376957023) 185 mg/dL 70-110 H CREATININE (test code = 3534296568) 0.69 mg/dL 0.50-1.04 CALCIUM (test code = 6827781638) 7.9 mg/dL 8.6-10.6 L eGFR (test code = 5388962387) mL/min/1.73m2 LUCILLE (test code = LUCILLE) Association [...] imaging tests). Lab Interpretation (test code = 68885-2) Abnormal [facility] TylerMAGNESIUM2022-02-19 11:20:32* Test Item Value Reference Range Interpretation Comme nts MAGNESIUM (test code = 8598552991) 2.2 mg/dL 1.7-2.4 Lab Interpretation (test cod e = 26120-2) Normal [facility] (NA, K, CL, CO2, GLUCOSE, BUN, CREATININE, CA)2021-10-22 11:20:32* Test Item Value Reference Range Interpretation Comme nts NA (test code = 6077556986) 136 mmol/L 135-145 K (test code = 0694820234) 4.3 mmol/L 3.5-5.0 CL (test code = 1342619918) 103 mmol/L 98-108 CO2 TOTAL (test code = 7060411128) 26 mmol/L 23-31 AGAP (test code = 6415354365) 2-16 BUN (test code = 2711436705) 18 mg/dL 7-23 GLUCOSE (test code = 2902033204) 185 mg/dL 70-110 H CREATININE (test code = 6650025406) 0.69 mg/dL 0.50-1.04 CALCIUM (test code = 6346187870) 7.9 mg/dL 8.6-10.6 L eGFR (test code = 5554934595) mL/min/1.73m2 LUCILLE (test code = LUCILLE) Association [...] imaging tests). Lab Interpretation (test code = 73363-9) Abnormal [facility] TylerMAGNESIUM2022-02-19 11:20:32* Test Item Value Reference Range Interpretation Comme nts MAGNESIUM (test code = 3997755016) 2.2 mg/dL 1.7-2.4 Lab Interpretation (test cod e = 66475-2) Normal [facility] CULTURE [id number] 23:01:06* Test Item Value Reference Range Interpretation Comme nts Blood Culture-Aerobic (test code = 15942-9) No organisms isolated No growth Previous preliminary verified result was Culture In Progress on 10/16/2021 at 2001 CSTPrevious preliminary verified result was No growth at 24 hours on 10/17/2021 at 1701 CSTPrevious preliminary verified result was No growth at 48 hours on 10/18/2021 at 1701 CSTPrevious preliminary verified result was No growth at 72 hours on 10/19/2021 at 1702 DENTAL CERAMIST HELPER Blood Culture-Anaerobic (test code = 42611-8) No organisms isolated No growth Previous preliminary verified result was Culture In Progress on 10/16/2021 at 2001 CSTPrevious preliminary verified result was No growth at 24 hours on 10/17/2021 at 1701 CSTPrevious preliminary verified result was No growth at 48 hours on 10/18/2021 at 1701 CSTPrevious preliminary verified result was No growth at 72 hours on 10/19/2021 at 1702 DENTAL CERAMIST HELPER Lab Interpretation (test code = 93356-3) [facility] [id number] 23:01:06* Test Item Value Reference Range Interpretation Comme nts Blood Culture-Aerobic (test code = 17428-4) No organisms isolated No growth Previous preliminary verified result was Culture In Progress on 10/16/2021 at 2001 CSTPrevious preliminary verified result was No growth at 24 hours on 10/17/2021 at 1701 CSTPrevious preliminary verified result was No growth at 48 hours on 10/18/2021 at 1702 CSTPrevious preliminary verified result was No growth at 72 hours on 10/19/2021 at 1702 DENTAL CERAMIST HELPER Blood Culture-Anaerobic (test code = 24277-3) No organisms isolated No growth Previous preliminary verified result was Culture In Progress on 10/16/2021 at 2001 CSTPrevious preliminary verified result was No growth at 24 hours on 10/17/2021 at 1701 CSTPrevious preliminary verified result was No growth at 48 hours on 10/18/2021 at 1702 CSTPrevious preliminary verified result was No growth at 72 hours on 10/19/2021 at 1702 DENTAL CERAMIST HELPER Lab Interpretation (test code = 30936-8) [facility] CULTURE [id number] 23:01:06* Test Item Value Reference Range Interpretation Comme nts Blood Culture-Aerobic (test code = 95493-9) No organisms isolated No growth Previous preliminary verified result was Culture In Progress on 10/16/2021 at 2001 CSTPrevious preliminary verified result was No growth at 24 hours on 10/17/2021 at 1701 CSTPrevious preliminary verified result was No growth at 48 hours on 10/18/2021 at 1701 CSTPrevious preliminary verified result was No growth at 72 hours on 10/19/2021 at 1702 DENTAL CERAMIST HELPER Blood Culture-Anaerobic (test code = 95449-6) No organisms isolated No growth Previous preliminary verified result was Culture In Progress on 10/16/2021 at 2001 CSTPrevious preliminary verified result was No growth at 24 hours on 10/17/2021 at 1701 CSTPrevious preliminary verified result was No growth at 48 hours on 10/18/2021 at 1701 CSTPrevious preliminary verified result was No growth at 72 hours on 10/19/2021 at 1702 DENTAL CERAMIST HELPER Lab Interpretation (test code = 79462-6) [facility] CULTURE [id number] 23:01:06* Test Item Value Reference Range Interpretation Comme nts Blood Culture-Aerobic (test code = 93880-2) No organisms isolated No growth Previous preliminary verified result was Culture In Progress on 10/16/2021 at 2001 CSTPrevious preliminary verified result was No growth at 24 hours on 10/17/2021 at 1701 CSTPrevious preliminary verified result was No growth at 48 hours on 10/18/2021 at 1702 CSTPrevious preliminary verified result was No growth at 72 hours on 10/19/2021 at 1702 DENTAL CERAMIST HELPER Blood Culture-Anaerobic (test code = 58814-8) No organisms isolated No growth Previous preliminary verified result was Culture In Progress on 10/16/2021 at 2001 CSTPrevious preliminary verified result was No growth at 24 hours on 10/17/2021 at 1701 CSTPrevious preliminary verified result was No growth at 48 hours on 10/18/2021 at 1702 CSTPrevious preliminary verified result was No growth at 72 hours on 10/19/2021 at 1702 DENTAL CERAMIST HELPER Lab Interpretation (test code = 92769-0) [facility] TylerAC PANEL [facility] + LACTIC [id number] 20:42:21* Test Item Value Reference Range Interpretation Comme nts PH (test code = 2) 7.35-7.45 PCO2 (test code = 8529693276) See_Comment [Automated messa ge] The system which generated this result transmitted reference range: 35 - 45 mmHg. The reference range was not used to interpret this result as normal/abnormal. PO2 (test code = 7558605876) See_Comment H [Automated messa ge] The system which generated this result transmitted reference range: 80 - 100 mmHg. The reference range was not used to interpret this result as normal/abnormal. HCO3 (test code = 5165593154) See_Comment [Automated messa ge] The system which generated this result transmitted reference range: 22 - 26 mEq/L. The reference range was not used to interpret this result as normal/abnormal. BE (test code = 1939386121) See_Comment [Automated messa ge] The system which generated this result transmitted reference range: -3.0 - 3.0 mEq/L. The reference range was not used to interpret this result as normal/abnormal. THB (test code = 0023066941) 12.1 g/dL 12.0-16.0 %O2HB (test code = 7066066452) 99.5 % 94.0-99.0 H %COHB ART (test code = 6374276950) 0.1 % 0.0-1.5 %METHB ART (test code = 6965567469) 0.1 % 0.4-1.5 L VOL%O2 ART (test code = 5687345140) 17.8 % 15.0-23.0 NA (test code = 5070104198) 135 mmol/L 135-145 K+ (test code = 6812096720) 4.3 mmol/L 3.5-5.0 AC CA IONZ (test code = 1683839965) 4.50 mg/dL 4.50-5.30 GLUCOSE (test code = 6937164951) 108 mg/dL 70-110 LACTIC ACID (test code = 5094655802) 2.19 mmol/L 0.50-2.20 Lab Interpretation (test code = 35096-8) [facility] PAN[facility] + LACTIC [id number] 20:42:21* Test Item Value Reference Range Interpretation Comme nts PH (test code = 2) 7.35-7.45 PCO2 (test code = 1679636975) See_Comment [Automated messa ge] The system which generated this result transmitted reference range: 35 - 45 mmHg. The reference range was not used to interpret this result as normal/abnormal. PO2 (test code = 5144868929) See_Comment H [Automated messa ge] The system which generated this result transmitted reference range: 80 - 100 mmHg. The reference range was not used to interpret this result as normal/abnormal. HCO3 (test code = 9377312981) See_Comment [Automated messa ge] The system which generated this result transmitted reference range: 22 - 26 mEq/L. The reference range was not used to interpret this result as normal/abnormal. BE (test code = 2441877510) See_Comment [Automated messa ge] The system which generated this result transmitted reference range: -3.0 - 3.0 mEq/L. The reference range was not used to interpret this result as normal/abnormal. THB (test code = 3052067798) 12.1 g/dL 12.0-16.0 %O2HB (test code = 6977604845) 99.5 % 94.0-99.0 H %COHB ART (test code = 1059963730) 0.1 % 0.0-1.5 %METHB ART (test code = 5701043613) 0.1 % 0.4-1.5 L VOL%O2 ART (test code = 0613149104) 17.8 % 15.0-23.0 NA (test code = 6904725016) 135 mmol/L 135-145 K+ (test code = 2432691267) 4.3 mmol/L 3.5-5.0 AC CA IONZ (test code = 5311963995) 4.50 mg/dL 4.50-5.30 GLUCOSE (test code = 7060902455) 108 mg/dL 70-110 LACTIC ACID (test code = 3701476656) 2.19 mmol/L 0.50-2.20 Lab Interpretation (test code = 05007-5) [facility]normal [facility] TylerANGIOTENSIN CONVERTING [id number] 20:19:53* Test Item Value Reference Range Interpretation Comme nts MELLY (test code = 2742-5) 28 U/L 9-67 Performed By: [id number] [place], [place] [address]Laboratory Director: Korin Barillas MD [facility] TylerANGIOTENSIN CONVERTING [id number] 20:19:53* Test Item Value Reference Range Interpretation Comme nts MELLY (test code = 2742-5) 28 U/L 9-67 Performed By: [email or web address] [place], [place] [address]Igncidqsng Director: Korin Barillas MD [facility] FLUID MANUAL [id number] 19:44:45* Test Item Value Reference Range Interpretation Comme nts BF SEGS% (test code = 52921-3) 2 % BF LYMPHS% (test code = 85339-8) 12 % BF MACROPHAGE% (test code = 27085-7) 86 % BF #CELLS CNTD (test code = 7021443800) cells/u L [facility] FLUID MANUAL [id number] 19:44:45* Test Item Value Reference Range Interpretation Comme nts BF SEGS% (test code = 67805-8) 2 % BF LYMPHS% (test code = 11547-0) 12 % BF MACROPHAGE% (test code = 39820-5) 86 % BF #CELLS CNTD (test code = 8886277278) cells/u L [facility] TylerBODY FLUID DIRECT [id number] 19:44:30* Test Item Value Reference Range Interpretation Comme nts BF COLOR (test code = 8603023879) Clear BF WBC Count (test code = 3544012920) See_Comment [Automated messa ge] The system which generated this result transmitted reference range: /?L. The reference range was not used to interpret this result as normal/abnormal. BF RBC Count (test code = 7668668424) <3000 See_Comment [Automated messa ge] The system which generated this result transmitted reference range: /?L. The reference range was not used to interpret this result as normal/abnormal. LUCILLE (test code = LUCILLE) The reference range and other method performance specifications have not been established for this body fluid. ?The test results must be integrated into the clinical context for interpretation. [facility] FLUID DIRECT [id number] 19:44:30* Test Item Value Reference Range Interpretation Comme nts BF COLOR (test code = 0203480336) Clear BF WBC Count (test code = 5418698056) See_Comment [Automated messa ge] The system which generated this result transmitted reference range: /?L. The reference range was not used to interpret this result as normal/abnormal. BF RBC Count (test code = 7107348641) <3000 See_Comment [Automated messa ge] The system which generated this result transmitted reference range: /?L. The reference range was not used to interpret this result as normal/abnormal. LUCILLE (test code = LUCILLE) The reference range and other method performance specifications have not been established for this body fluid. ?The test results must be integrated into the clinical context for interpretation. [facility] WITH [id number] 19:27:30* Test Item Value Reference Range Interpretation [...] g/dL 31.6-35.1 H RDW-SD (test code = 50993-1) 45.8 fL 39.0-49.9 RDW-CV (test code = 788-0) 14.4 % 12.0-15.5 PLT (test code = 777-3) See_Comment H [Automated message] The system which generated this result transmitted reference range: 166 - 358 10*3/?L. The reference range was not used to interpret this result as normal/abnormal. MPV (test code = 03300-6) 10.4 fL 9.5-12.9 NRBC/100 WBC (test code = 7421032393) See_Comment [Automated message] The system which generated this result transmitted reference range: 0.0 - 10.0 /100 WBCs. The reference range was not used to interpret this result as normal/abnormal. NRBC x10^3 (test code = 9164402038) See_Comment [Automated message] The system which generated this result transmitted reference range: 10*3/?L. The reference range was not used to interpret this result as normal/abnormal. SEG % (test code = 26554-1) 84 % 33-76 H BAND % (test code = 10720-9) 8 % 0-1 H MYELO % (test code = 60242-6) 2 % See_Comment H [Automated message] The system which generated this result transmitted reference range: <=0. The reference range was not used to interpret this result as normal/abnormal. LYMPH % (test code = 49294-5) 4 % 14-54 L MONO % (test code = 30698-7) 2 % 0-4 ANC (test code = 753-4) 21.16 10*3/uL 1.88-7.09 H Lab Interpretation (test code = 85594-8) Abnormal [facility] WITH [id number] 19:27:30* Test Item Value Reference Range Interpretation [...] g/dL 31.6-35.1 H RDW-SD (test code = 91484-4) 45.8 fL 39.0-49.9 RDW-CV (test code = 788-0) 14.4 % 12.0-15.5 PLT (test code = 777-3) See_Comment H [Automated message] The system which generated this result transmitted reference range: 166 - 358 10*3/?L. The reference range was not used to interpret this result as normal/abnormal. MPV (test code = 31095-3) 10.4 fL 9.5-12.9 NRBC/100 WBC (test code = 4410003938) See_Comment [Automated message] The system which generated this result transmitted reference range: 0.0 - 10.0 /100 WBCs. The reference range was not used to interpret this result as normal/abnormal. NRBC x10^3 (test code = 5482627231) See_Comment [Automated message] The system which generated this result transmitted reference range: 10*3/?L. The reference range was not used to interpret this result as normal/abnormal. SEG % (test code = 53499-7) 84 % 33-76 H BAND % (test code = 69047-1) 8 % 0-1 H MYELO % (test code = 33544-4) 2 % See_Comment H [Automated message] The system which generated this result transmitted reference range: <=0. The reference range was not used to interpret this result as normal/abnormal. LYMPH % (test code = 22157-2) 4 % 14-54 L MONO % (test code = 45072-8) 2 % 0-4 ANC (test code = 753-4) 21.16 10*3/uL 1.88-7.09 H Lab Interpretation (test code = 16213-6) Abnormal [facility] METABOLIC PANEL (NA, K, CL, CO2, GLUCOSE, BUN, CREATININE, CA)2021-10-21 19:20:26* Test Item Value Reference Range Interpretation Comme nts NA (test code = 7683039032) 125 mmol/L 135-145 L K (test code = 0314455967) 4.4 mmol/L 3.5-5.0 Slight hemolysis CL (test code = 7907728609) 98 mmol/L 98-108 CO2 TOTAL (test code = 7289653220) 19 mmol/L 23-31 L AGAP (test code = 4541120980) 2-16 BUN (test code = 3546188286) 21 mg/dL 7-23 Slight hemolysis GLUCOSE (test code = 5182132476) 155 mg/dL 70-110 H CREATININE (test code = 3158864318) 0.63 mg/dL 0.50-1.04 CALCIUM (test code = 0479091653) 6.9 mg/dL 8.6-10.6 L eGFR (test code = 6658056188) mL/min/1.73m2 LUCILLE (test code = LUCILLE) Association [...] imaging tests). Lab Interpretation (test code = 32069-0) Abnormal [facility] METABOLIC PANEL (NA, K, CL, CO2, GLUCOSE, BUN, CREATININE, CA)2021-10-21 19:20:26* Test Item Value Reference Range Interpretation Comme nts NA (test code = 1320651068) 125 mmol/L 135-145 L K (test code = 3820423110) 4.4 mmol/L 3.5-5.0 Slight hemolysis CL (test code = 9488136116) 98 mmol/L 98-108 CO2 TOTAL (test code = 0977488218) 19 mmol/L 23-31 L AGAP (test code = 9958691266) 2-16 BUN (test code = 3548189375) 21 mg/dL 7-23 Slight hemolysis GLUCOSE (test code = 4311434470) 155 mg/dL 70-110 H CREATININE (test code = 4272147649) 0.63 mg/dL 0.50-1.04 CALCIUM (test code = 7597903629) 6.9 mg/dL 8.6-10.6 L eGFR (test code = 2816150284) mL/min/1.73m2 LUCILLE (test code = LUCILLE) Association [...] imaging tests). Lab Interpretation (test code = 54407-8) [facility] 19:12:03* Test Item Value Reference Range Interpretation Comme [facility] Fibrinogen (test code = 9379683633) 585 mg/dL 167-453 H Lab Interpretation (test cod e = 37024-1) Abnormal [facility] / [id number] 19:12:03* Test Item Value Reference Range Interpretation Comme [facility] PROTIME PATIENT (test code = 5964-2) See_Comment H [Automated KupiKupon] The system which generated this result transmitted reference range: 10.1 - 12.6 Seconds. The reference range was not used to interpret this result as normal/abnormal. INR (test code = 6301-6) Normal INR <1.1; Warfarin Therapeutic range 2.0 to 3.0 or 2.5 to 3.5, depending upon the indications. Lab Interpretation (test code = 48264-2) [facility]-18 19:12:03* Test Item Value Reference Range Interpretation Comme [facility] Fibrinogen (test code = 7973909521) 585 mg/dL 167-453 H Lab Interpretation (test cod e = 99645-4) [facility]normal [facility] / [id number] 19:12:03* Test Item Value Reference Range Interpretation Comme nts PROTIME PATIENT (test code = 5964-2) See_Comment H [Automated messa ge] The system which generated this result transmitted reference range: 10.1 - 12.6 Seconds. The reference range was not used to interpret this result as normal/abnormal. INR (test code = 6301-6) Normal INR <1.1; Warfarin Therapeutic range 2.0 to 3.0 or 2.5 to 3.5, depending upon the indications. Lab Interpretation (test code = 38059-9) [facility]normal [facility]URIC [id number] 04:54:18* Test Item Value Reference Range Interpretation Comme [facility] URIC ACID (test code = 9371306403) 4.3 mg/dL 2.9-6.0 Lab Interpretation (test cod e = 51354-5) Normal [facility] [id number] 04:54:18* Test Item Value Reference Range Interpretation Comme [facility] URIC ACID (test code = 2672143573) 4.3 mg/dL 2.9-6.0 Lab Interpretation (test cod e = 34610-1) [facility] Tyler[facility] ([facility]2021-10-20 20:54:06* Test Item Value Reference Range Interpretation Comme nts EF(Teich) (test code = 7939479289) 63.80 % LVIDD (test code = 0599001001) 4.40 cm LVIDS (test code = 9337548389) 2.90 cm IVS (test code = 2420635489) 0.86 cm LVPWD (test code = 5065284895) 0.86 cm LVOT diameter (test code = 4003595484) 2.00 cm FS (test code = 4040490656) 35 % LA size (test code = 4423756685) 3.4 cm LAV(MOD-sp4) (test code = 7241102355) 41.40 mL Ao root annulus (test code = 6268568358) 2.44 cm Ao root diam (test code = 6226856993) 2.44 cm Aortic root (test code = 2841677889) 2.44 cm PW (test code = 3638683870) 0.86 cm 0.6-1.1 EF - 2D (test code = 02358459) 63.80 % Interventricular Septum Diastolic Thickness by 2D (test code = 5671755) 0.86 cm Radiology Study observation (narrative) (test code = 56544-1) LUCILLE (test code = LUCILLE) ?Left?Ventricle: Left ventricle is normal in size and function. Normal wall thickness. Normal systolic function with a visually estimated EF of 55 - 60%. ?Aortic?Valve: Aortic valve is normal in structure and function. ?Mitral?Valve: Mitral valve is normal in structure and function. VitalsHeight Weight BSA (Calculated - sq m) BP Pulse 60 220lb ? ?114/63 81 [facility]2021-[facility]-20 20:54:06* Test Item Value Reference Range Interpretation Comme nts EF(Teich) (test code = 6746419817) 63.80 % LVIDD (test code = 2729541140) 4.40 cm LVIDS (test code = 5337999378) 2.90 cm IVS (test code = 9068930201) 0.86 cm LVPWD (test code = 3290831934) 0.86 cm LVOT diameter (test code = 1528651208) 2.00 cm FS (test code = 5850858845) 35 % LA size (test code = 6522625795) 3.4 cm LAV(MOD-sp4) (test code = 1201403528) 41.40 mL Ao root annulus (test code = 0148873501) 2.44 cm Ao root diam (test code = 7150003908) 2.44 cm Aortic root (test code = 2544059983) 2.44 cm PW (test code = 0509999915) 0.86 cm 0.6-1.1 EF - 2D (test code = 94262917) 63.80 % Interventricular Septum Diastolic Thickness by 2D (test code = 9547029) 0.86 cm Radiology Study observation (narrative) (test code = 25658-4) LUCILLE (test code = LUCILLE) ?Left?Ventricle: Left ventricle is normal in size and function. Normal wall thickness. Normal systolic function with a visually estimated EF of 55 - 60%. ?Aortic?Valve: Aortic valve is normal in structure and function. ?Mitral?Valve: Mitral valve is normal in structure and function. VitalsHeight Weight BSA (Calculated - sq m) BP Pulse 60 220lb ? ?114/63 81 [facility] WITH [id number] 11:09:20* Test Item Value Reference Range Interpretation [...] 31.9 g/dL 31.6-35.1 RDW-SD (test code = 09601-8) 46.3 fL 39.0-49.9 RDW-CV (test code = 788-0) 14.5 % 12.0-15.5 PLT (test code = 777-3) See_Comment [Automated message] The system which generated this result transmitted reference range: 166 - 358 10*3/?L. The reference range was not used to interpret this result as normal/abnormal. MPV (test code = 89423-9) 9.9 fL 9.5-12.9 NRBC/100 WBC (test code = 3600833770) See_Comment [Automated message] The system which generated this result transmitted reference range: 0.0 - 10.0 /100 WBCs. The reference range was not used to interpret this result as normal/abnormal. NRBC x10^3 (test code = 4137718612) <0.01 See_Comment [Automated message] The system which generated this result transmitted reference range: 10*3/?L. The reference range was not used to interpret this result as normal/abnormal. GRAN MAT (NEUT) % (test code = 770-8) 89.9 % IMM GRAN % (test code = 2987449492) 2.90 % LYMPH % (test code = 736-9) 4.2 % MONO % (test code = 5905-5) 2.9 % EOS % (test code = 713-8) 0.0 % BASO % (test code = 706-2) 0.1 % GRAN MAT x10^3(ANC) (test code = 3376789257) 14.51 10*3/uL 1.88-7.09 H IMM GRAN x10^3 (test code = 5516586953) 0.46 10*3/uL 0.00-0.06 H LYMPH x10^3 (test code = 731-0) 0.67 10*3/uL 1.32-3.29 L MONO x10^3 (test code = 742-7) 0.47 10*3/uL 0.33-0.92 EOS x10^3 (test code = 711-2) <0.03 0.03-0.39 L BASO x10^3 (test code = 704-7) <0.03 0.01-0.07 TOXIC CHANGES (test code = 803-7) Present A Lab Interpretation (test code = 35182-5) Abnormal [facility] WITH [id number] 11:09:20* Test Item Value Reference Range Interpretation [...] 31.9 g/dL 31.6-35.1 RDW-SD (test code = 73941-0) 46.3 fL 39.0-49.9 RDW-CV (test code = 788-0) 14.5 % 12.0-15.5 PLT (test code = 777-3) See_Comment [Automated message] The system which generated this result transmitted reference range: 166 - 358 10*3/?L. The reference range was not used to interpret this result as normal/abnormal. MPV (test code = 57364-4) 9.9 fL 9.5-12.9 NRBC/100 WBC (test code = 9971644125) See_Comment [Automated message] The system which generated this result transmitted reference range: 0.0 - 10.0 /100 WBCs. The reference range was not used to interpret this result as normal/abnormal. NRBC x10^3 (test code = 4979788033) <0.01 See_Comment [Automated message] The system which generated this result transmitted reference range: 10*3/?L. The reference range was not used to interpret this result as normal/abnormal. GRAN MAT (NEUT) % (test code = 770-8) 89.9 % IMM GRAN % (test code = 7178976566) 2.90 % LYMPH % (test code = 736-9) 4.2 % MONO % (test code = 5905-5) 2.9 % EOS % (test code = 713-8) 0.0 % BASO % (test code = 706-2) 0.1 % GRAN MAT x10^3(ANC) (test code = 0975920953) 14.51 10*3/uL 1.88-7.09 H IMM GRAN x10^3 (test code = 8256596208) 0.46 10*3/uL 0.00-0.06 H LYMPH x10^3 (test code = 731-0) 0.67 10*3/uL 1.32-3.29 L MONO x10^3 (test code = 742-7) 0.47 10*3/uL 0.33-0.92 EOS x10^3 (test code = 711-2) <0.03 0.03-0.39 L BASO x10^3 (test code = 704-7) <0.03 0.01-0.07 TOXIC CHANGES (test code = 803-7) Present A Lab Interpretation (test code = 51257-3) Abnormal [facility] METABOLIC PANEL (NA, K, CL, CO2, GLUCOSE, BUN, CREATININE, CA)2021-10-20 10:55:22* Test Item Value Reference Range Interpretation Comme nts NA (test code = 7589073958) 136 mmol/L 135-145 K (test code = 4258121127) 4.1 mmol/L 3.5-5.0 CL (test code = 6018538071) 108 mmol/L 98-108 CO2 TOTAL (test code = 0229396463) 25 mmol/L 23-31 AGAP (test code = 4162263135) 2-16 BUN (test code = 0170497763) 23 mg/dL 7-23 GLUCOSE (test code = 4353149345) 134 mg/dL 70-110 H CREATININE (test code = 7168615637) 0.67 mg/dL 0.50-1.04 CALCIUM (test code = 1631659641) 7.5 mg/dL 8.6-10.6 L eGFR (test code = 6539412116) mL/min/1.73m2 LUCILLE (test code = LUCILLE) Association [...] imaging tests). Lab Interpretation (test code = 15018-0) Abnormal [facility] METABOLIC PANEL (NA, K, CL, CO2, GLUCOSE, BUN, CREATININE, CA)2021-10-20 10:55:22* Test Item Value Reference Range Interpretation Comme nts NA (test code = 9074756811) 136 mmol/L 135-145 K (test code = 6387313699) 4.1 mmol/L 3.5-5.0 CL (test code = 8451286150) 108 mmol/L 98-108 CO2 TOTAL (test code = 8102360697) 25 mmol/L 23-31 AGAP (test code = 4723324446) 2-16 BUN (test code = 9953188738) 23 mg/dL 7-23 GLUCOSE (test code = 9191194451) 134 mg/dL 70-110 H CREATININE (test code = 8563641642) 0.67 mg/dL 0.50-1.04 CALCIUM (test code = 3521415656) 7.5 mg/dL 8.6-10.6 L eGFR (test code = 5503034807) mL/min/1.73m2 LUCILLE (test code = LUCILLE) Association [...] imaging tests). Lab Interpretation (test code = 83571-4) Abnormal [facility] [id number] 21:49:45* Test Item Value Reference Range Interpretation Comme nts ANTI-DSDNA (test code = 4766880638) See_Comment [Automated message] The system which generated this result transmitted reference range: 0.0 - 4.0 IU/mL. The reference range was not used to interpret this result as normal/abnormal. LUCILLE (test code = LUCILLE) Negative ? ?< or = 4 IU/mLPositive ? ? ?> or = 10 IU/mLIndetermin ate ?5-9 IU/mL Lab Interpretation (test code = 02554-9) Normal [facility] [id number] 21:49:45* Test Item Value Reference Range Interpretation Comme nts ANTI-DSDNA (test code = 3630931487) See_Comment [Automated message] The system which generated this result transmitted reference range: 0.0 - 4.0 IU/mL. The reference range was not used to interpret this result as normal/abnormal. LUCILLE (test code = LUCILLE) Negative ? ?< or = 4 IU/mLPositive ? ? ?> or = 10 IU/mLIndetermin ate ?5-9 IU/mL Lab Interpretation (test code = 31867-8) [id number]* Test Item Value Reference Range Interpretation Comme nts RF (test code = 6799693461) <20 See_Comment [Automated messa ge] The system which generated this result transmitted reference range: <20 IU/mL. The reference range was not used to interpret this result as normal/abnormal. Lab Interpretation (test code = 81690-4) [id number] 21:43:06* Test Item Value Reference Range Interpretation Comme nts RF (test code = 7990091396) <20 See_Comment [Automated messa ge] The system which generated this result transmitted reference range: <20 IU/mL. The reference range was not used to interpret this result as normal/abnormal. Lab Interpretation (test code = 62364-8) [facility] [id number] 20:22:55 * Test Item Value Reference Range Interpretation Comme nts SHIRA Titer by IFA (test code = 1102012182) <=1:80 SHIRA Pattern (test code = 4543814728) SHIRA screen was positive at the 1:80 [...] will be held for 7 days. [facility] [id number] 20:22:55 * Test Item Value Reference Range Interpretation Comme nts SHIRA Titer by IFA (test code = 6300911835) <=1:80 SHIRA Pattern (test code = 4651205905) SHIRA screen was positive at the 1:80 dilution but with low titer results observed during subsequent testing. LCUILLE (test code = LUCILLE) Anti-nuclear antib odies [...] specimen will be held for [address] [facility] [id number] 18:12:04* Test Item Value Reference Range Interpretation Comme nts Myeloperoxidase (MPO) Antibodies, IgG Interpretation (test code = 31674-6) Negative Negative Proteinase 3 (PR3) Antibodies, IgG Interpretation (test code = 28098-9) Negative Negative Myeloperoxidase (MPO) Antibodies, IgG (test code = 2275163985) <0.3 See_Comment [Automated message] The system which generated this result transmitted reference range: <=3.5 U/mL. The reference range was not used to interpret this result as normal/abnormal. Proteinase 3 (PR3) Antibodies, IgG (test code = 0929114564) <0.7 See_Comment [Automated message] The system which [...] 12 weeks. Lab Interpretation (test code = 70507-8) Normal [facility] [id number] 18:12:04* Test Item Value Reference Range Interpretation Comme nts Myeloperoxidase (MPO) Antibodies, IgG Interpretation (test code = 40371-3) Negative Negative Proteinase 3 (PR3) Antibodies, IgG Interpretation (test code = 77843-4) Negative Negative Myeloperoxidase (MPO) Antibodies, IgG (test code = 4041034893) <0.3 See_Comment [Automated message] The system which generated this result transmitted reference range: <=3.5 U/mL. The reference range was not used to interpret this result as normal/abnormal. Proteinase 3 (PR3) Antibodies, IgG (test code = 2053214743) <0.7 See_Comment [Automated message] The system which [...] 12 weeks. Lab Interpretation (test code = 98488-2) [facility] Test Item Value Reference Range Interpretation Comme nts MAGNESIUM (test code = 7434845997) 2.9 mg/dL 1.7-2.4 H Lab Interpretation (test cod e = 38973-4) [facility] 10:47:[facility]* Test Item Value Reference Range Interpretation Comme nts MAGNESIUM (test code = 8303416528) 2.9 mg/dL 1.7-2.4 H Lab Interpretation (test cod e = 40775-3) Abnormal [facility] WITH [id number] 09:31:49* Test Item Value Reference Range Interpretation [...] 32.8 g/dL 31.6-35.1 RDW-SD (test code = 36875-1) 45.5 fL 39.0-49.9 RDW-CV (test code = 788-0) 14.4 % 12.0-15.5 PLT (test code = 777-3) See_Comment [Automated message] The system which generated this result transmitted reference range: 166 - 358 10*3/?L. The reference range was not used to interpret this result as normal/abnormal. MPV (test code = 57208-4) 10.0 fL 9.5-12.9 NRBC/100 WBC (test code = 6342187478) See_Comment [Automated message] The system which generated this result transmitted reference range: 0.0 - 10.0 /100 WBCs. The reference range was not used to interpret this result as normal/abnormal. NRBC x10^3 (test code = 0295940654) <0.01 See_Comment [Automated message] The system which generated this result transmitted reference range: 10*3/?L. The reference range was not used to interpret this result as normal/abnormal. GRAN MAT (NEUT) % (test code = 770-8) 93.4 % IMM GRAN % (test code = 3712090138) 1.50 % LYMPH % (test code = 736-9) 2.4 % MONO % (test code = 5905-5) 2.6 % EOS % (test code = 713-8) 0.0 % BASO % (test code = 706-2) 0.1 % GRAN MAT x10^3(ANC) (test code = 4992185429) 17.74 10*3/uL 1.88-7.09 H IMM GRAN x10^3 (test code = 6524521740) 0.28 10*3/uL 0.00-0.06 H LYMPH x10^3 (test code = 731-0) 0.46 10*3/uL 1.32-3.29 L MONO x10^3 (test code = 742-7) 0.50 10*3/uL 0.33-0.92 EOS x10^3 (test code = 711-2) <0.03 0.03-0.39 L BASO x10^3 (test code = 704-7) <0.03 0.01-0.07 TOXIC CHANGES (test code = 803-7) Present A Lab Interpretation (test code = 52876-6) Abnormal [facility] WITH [id number] 09:31:49* Test Item Value Reference Range Interpretation [...] 32.8 g/dL 31.6-35.1 RDW-SD (test code = 44763-0) 45.5 fL 39.0-49.9 RDW-CV (test code = 788-0) 14.4 % 12.0-15.5 PLT (test code = 777-3) See_Comment [Automated message] The system which generated this result transmitted reference range: 166 - 358 10*3/?L. The reference range was not used to interpret this result as normal/abnormal. MPV (test code = 75836-9) 10.0 fL 9.5-12.9 NRBC/100 WBC (test code = 8090270123) See_Comment [Automated message] The system which generated this result transmitted reference range: 0.0 - 10.0 /100 WBCs. The reference range was not used to interpret this result as normal/abnormal. NRBC x10^3 (test code = 7317209091) <0.01 See_Comment [Automated message] The system which generated this result transmitted reference range: 10*3/?L. The reference range was not used to interpret this result as normal/abnormal. GRAN MAT (NEUT) % (test code = 770-8) 93.4 % IMM GRAN % (test code = 1086443497) 1.50 % LYMPH % (test code = 736-9) 2.4 % MONO % (test code = 5905-5) 2.6 % EOS % (test code = 713-8) 0.0 % BASO % (test code = 706-2) 0.1 % GRAN MAT x10^3(ANC) (test code = 6193943014) 17.74 10*3/uL 1.88-7.09 H IMM GRAN x10^3 (test code = 0532881731) 0.28 10*3/uL 0.00-0.06 H LYMPH x10^3 (test code = 731-0) 0.46 10*3/uL 1.32-3.29 L MONO x10^3 (test code = 742-7) 0.50 10*3/uL 0.33-0.92 EOS x10^3 (test code = 711-2) <0.03 0.03-0.39 L BASO x10^3 (test code = 704-7) <0.03 0.01-0.07 TOXIC CHANGES (test code = 803-7) Present A Lab Interpretation (test code = 18179-1) Abnormal [facility] METABOLIC PANEL (NA, K, CL, CO2, GLUCOSE, BUN, CREATININE, CA)2021-10-19 09:25:48* Test Item Value Reference Range Interpretation Comme nts NA (test code = 7043261488) 144 mmol/L 135-145 K (test code = 3452475655) 4.5 mmol/L 3.5-5.0 CL (test code = 7992666893) 111 mmol/L 98-108 H CO2 TOTAL (test code = 9450287911) 27 mmol/L 23-31 AGAP (test code = 5479109315) 2-16 BUN (test code = 1531834338) 30 mg/dL 7-23 H GLUCOSE (test code = 4520044951) 159 mg/dL 70-110 H CREATININE (test code = 2562980197) 0.81 mg/dL 0.50-1.04 CALCIUM (test code = 8591507953) 8.2 mg/dL 8.6-10.6 L eGFR (test code = 2557870915) mL/min/1.73m2 LUCILLE (test code = LUCILLE) Association [...] imaging tests). Lab Interpretation (test code = 91822-1) Abnormal [facility] METABOLIC PANEL (NA, K, CL, CO2, GLUCOSE, BUN, CREATININE, CA)2021-10-19 09:25:48* Test Item Value Reference Range Interpretation Comme nts NA (test code = 8018908930) 144 mmol/L 135-145 K (test code = 6026351162) 4.5 mmol/L 3.5-5.0 CL (test code = 7927905026) 111 mmol/L 98-108 H CO2 TOTAL (test code = 9120666099) 27 mmol/L 23-31 AGAP (test code = 4341632113) 2-16 BUN (test code = 1794434473) 30 mg/dL 7-23 H GLUCOSE (test code = 8113756458) 159 mg/dL 70-110 H CREATININE (test code = 8686516924) 0.81 mg/dL 0.50-1.04 CALCIUM (test code = 2128870441) 8.2 mg/dL 8.6-10.6 L eGFR (test code = 0342086673) mL/min/1.73m2 LUCILLE (test code = LUCILLE) Association [...] imaging tests). Lab Interpretation (test code = 37364-9) Abnormal [facility] GLUCOSE (AUTOMATED)2021-10-19 02:29:39* Test Item Value Reference Range Interpretation Comme [facility] POCT GLU (test code = 3312707991) 159 mg/dL 70-110 H Lab Interpretation (test cod e = 48028-2) Abnormal [facility] GLUCOSE (AUTOMATED)2021-10-19 02:29:39* Test Item Value Reference Range Interpretation Comme [facility] POCT GLU (test code = 3611520766) 159 mg/dL 70-110 H Lab Interpretation (test cod e = 32321-4) [facility] [id number] 22:06:05* Test Item Value Reference Range Interpretation Comme nts SHIRA (test code = 3268606281) Positive Negative A LUCILLE (test code = LUCILLE) Negative - No Anti-Nuclear Antibodies detected by IFA.Positive - SHIRA IFA screen performed with a 1:80 dilution in adults and a 1:40 dilution in pediatrics. Any SHIRA "Positive" will have titer performed and reported separately. Lab Interpretation (test code = 04067-9) [facility] [id number] 22:06:05* Test Item Value Reference Range Interpretation Comme [facility] SHIRA (test code = [id number]) Positive Negative A LUCILLE (test code = LUCILLE) Negative - No Anti-Nuclear Antibodies detected by IFA.Positive - SHIRA IFA screen performed with a 1:80 dilution in adults and a 1:40 dilution in pediatrics. Any SHIRA "Positive" will have titer performed and reported separately. Lab Interpretation (test code = 94220-0) [facility]18 17:16:16* Test Item Value Reference Range Interpretation Comme [facility] HGB A1C (test code = 4548-4) 6.0 % 4.0-5.7 H LUCILLE (test code = LUCILLE) Reference RangesNormal: <5.7%Prediabetes: 5.7 - 6.4%Diabetes: > 6.5% Lab Interpretation (test code = 25473-3) [facility]normal [facility]C)2021-10-18 17:16:16* Test Item Value Reference Range Interpretation Comme nts HGB A1C (test code = 4548-4) 6.0 % 4.0-5.7 H LUCILLE (test code = LUCILLE) Reference RangesNormal: <5.7%Prediabetes: 5.7 - 6.4%Diabetes: > 6.5% Lab Interpretation (test code = 10618-7) [facility]normal [facility] WITH [id number] 10:21:29* Test Item Value Reference Range Interpretation [...] 33.4 g/dL 31.6-35.1 RDW-SD (test code = 50575-9) 44.0 fL 39.0-49.9 RDW-CV (test code = 788-0) 14.1 % 12.0-15.5 PLT (test code = 777-3) See_Comment [Automated message] The system which generated this result transmitted reference range: 166 - 358 10*3/?L. The reference range was not used to interpret this result as normal/abnormal. MPV (test code = 82534-5) 10.5 fL 9.5-12.9 NRBC/100 WBC (test code = 9283156134) See_Comment [Automated message] The system which generated this result transmitted reference range: 0.0 - 10.0 /100 WBCs. The reference range was not used to interpret this result as normal/abnormal. NRBC x10^3 (test code = 9649710030) <0.01 See_Comment [Automated message] The system which generated this result transmitted reference range: 10*3/?L. The reference range was not used to interpret this result as normal/abnormal. GRAN MAT (NEUT) % (test code = 770-8) 94.3 % IMM GRAN % (test code = 7598743610) 1.00 % LYMPH % (test code = 736-9) 2.1 % MONO % (test code = 5905-5) 2.5 % EOS % (test code = 713-8) 0.0 % BASO % (test code = 706-2) 0.1 % GRAN MAT x10^3(ANC) (test code = 9842352074) 18.69 10*3/uL 1.88-7.09 H IMM GRAN x10^3 (test code = 4153774076) 0.20 10*3/uL 0.00-0.06 H LYMPH x10^3 (test code = 731-0) 0.42 10*3/uL 1.32-3.29 L MONO x10^3 (test code = 742-7) 0.50 10*3/uL 0.33-0.92 EOS x10^3 (test code = 711-2) <0.03 0.03-0.39 L BASO x10^3 (test code = 704-7) <0.03 0.01-0.07 TOXIC CHANGES (test code = 803-7) Present A Lab Interpretation (test code = 97951-6) Abnormal [facility] WITH [id number] 10:21:29* Test Item Value Reference Range Interpretation [...] 33.4 g/dL 31.6-35.1 RDW-SD (test code = 20242-8) 44.0 fL 39.0-49.9 RDW-CV (test code = 788-0) 14.1 % 12.0-15.5 PLT (test code = 777-3) See_Comment [Automated message] The system which generated this result transmitted reference range: 166 - 358 10*3/?L. The reference range was not used to interpret this result as normal/abnormal. MPV (test code = 56812-0) 10.5 fL 9.5-12.9 NRBC/100 WBC (test code = 7221351558) See_Comment [Automated message] The system which generated this result transmitted reference range: 0.0 - 10.0 /100 WBCs. The reference range was not used to interpret this result as normal/abnormal. NRBC x10^3 (test code = 3207593551) <0.01 See_Comment [Automated message] The system which generated this result transmitted reference range: 10*3/?L. The reference range was not used to interpret this result as normal/abnormal. GRAN MAT (NEUT) % (test code = 770-8) 94.3 % IMM GRAN % (test code = 7850085297) 1.00 % LYMPH % (test code = 736-9) 2.1 % MONO % (test code = 5905-5) 2.5 % EOS % (test code = 713-8) 0.0 % BASO % (test code = 706-2) 0.1 % GRAN MAT x10^3(ANC) (test code = 9738383745) 18.69 10*3/uL 1.88-7.09 H IMM GRAN x10^3 (test code = 0991255946) 0.20 10*3/uL 0.00-0.06 H LYMPH x10^3 (test code = 731-0) 0.42 10*3/uL 1.32-3.29 L MONO x10^3 (test code = 742-7) 0.50 10*3/uL 0.33-0.92 EOS x10^3 (test code = 711-2) <0.03 0.03-0.39 L BASO x10^3 (test code = 704-7) <0.03 0.01-0.07 TOXIC CHANGES (test code = 803-7) Present A Lab Interpretation (test code = 82901-4) Abnormal [facility] METABOLIC PANEL (NA, K, CL, CO2, GLUCOSE, BUN, CREATININE, CA)2021-10-18 09:49:57* Test Item Value Reference Range Interpretation Comme nts NA (test code = 0753005344) 141 mmol/L 135-145 K (test code = 1945402687) 4.9 mmol/L 3.5-5.0 CL (test code = 3978723851) 107 mmol/L 98-108 CO2 TOTAL (test code = 2135063346) 26 mmol/L 23-31 AGAP (test code = 6228364255) 2-16 BUN (test code = 1286475601) 30 mg/dL 7-23 H GLUCOSE (test code = 8795680012) 166 mg/dL 70-110 H CREATININE (test code = 7719013635) 0.76 mg/dL 0.50-1.04 CALCIUM (test code = 7299403045) 8.2 mg/dL 8.6-10.6 L eGFR (test code = 2934034087) mL/min/1.73m2 LUCILLE (test code = LUCILLE) Association [...] imaging tests). Lab Interpretation (test code = 27872-9) [facility]normal [facility] 09:49:57* Test Item Value Reference Range Interpretation Comme nts MAGNESIUM (test code = 4791548506) 3.0 mg/dL 1.7-2.4 H Lab Interpretation (test cod e = 17119-9) Abnormal [facility]2022-[facility]-15 09:49:57* Test Item Value Reference Range Interpretation Comme nts PHOSPHORUS (test code = 4431741265) 4.0 mg/dL 2.5-5.0 Lab Interpretation (test cod e = 47926-8) Normal [facility] (NA, K, CL, CO2, GLUCOSE, BUN, CREATININE, CA)2021-10-18 09:49:57* Test Item Value Reference Range Interpretation Comme nts NA (test code = 8440612505) 141 mmol/L 135-145 K (test code = 0983526249) 4.9 mmol/L 3.5-5.0 CL (test code = 1128293828) 107 mmol/L 98-108 CO2 TOTAL (test code = 7941785080) 26 mmol/L 23-31 AGAP (test code = 9279510869) 2-16 BUN (test code = 2852163109) 30 mg/dL 7-23 H GLUCOSE (test code = 4838797279) 166 mg/dL 70-110 H CREATININE (test code = 9113331604) 0.76 mg/dL 0.50-1.04 CALCIUM (test code = 5007137346) 8.2 mg/dL 8.6-10.6 L eGFR (test code = 1194808554) mL/min/1.73m2 LUCILLE (test code = LUCILLE) Association [...] imaging tests). Lab Interpretation (test code = 56388-4) [facility] Test Item Value Reference Range Interpretation Comme nts MAGNESIUM (test code = 6360837544) 3.0 mg/dL 1.7-2.4 H Lab Interpretation (test cod e = 33052-3) [facility]normal [facility] 09:49:57* Test Item Value Reference Range Interpretation Comme nts PHOSPHORUS (test code = 0645429422) 4.0 mg/dL 2.5-5.0 Lab Interpretation (test cod e = 11837-6) Normal [facility] 1/2 AG-AB WITH [id number] 02:31:06* Test Item Value Reference Range Interpretation Comme nts HIV Semi-quantitative (test code = 19756-6) Negative Negative LUCILLE (test code = LUCILLE) Non-reactive for HIV-1 antigen and HIV-1/HIV-2 antibodies. ?No laboratory evidence of HIV infection. ?Repeat in 2-4 weeks if acute HIV infection is suspected. [facility] 1/2 AG-AB WITH [id number] 02:31:06* Test Item Value Reference Range Interpretation Comme nts HIV Semi-quantitative (test code = 43847-1) Negative Negative LUCILLE (test code = LUCILLE) Non-reactive for HIV-1 antigen and HIV-1/HIV-2 antibodies. ?No laboratory evidence of HIV infection. ?Repeat in 2-4 weeks if acute HIV infection is suspected. [facility] METABOLIC PANEL (NA, K, CL, CO2, GLUCOSE, BUN, CREATININE, CA)2021-10-18 01:11:26* Test Item Value Reference Range Interpretation Comme nts NA (test code = 9735050881) 141 mmol/L 135-145 K (test code = 8052744123) 4.6 mmol/L 3.5-5.0 CL (test code = 1141600141) 106 mmol/L 98-108 CO2 TOTAL (test code = 6145942666) 26 mmol/L 23-31 AGAP (test code = 4732714327) 2-16 BUN (test code = 1830464128) 28 mg/dL 7-23 H GLUCOSE (test code = 6188907235) 180 mg/dL 70-110 H CREATININE (test code = 6638789074) 0.82 mg/dL 0.50-1.04 CALCIUM (test code = 9059901586) 8.3 mg/dL 8.6-10.6 L eGFR (test code = 9691691524) mL/min/1.73m2 LUCILLE (test code = LUCILLE) Association [...] imaging tests). Lab Interpretation (test code = 73197-3) [facility] (NA, K, CL, CO2, GLUCOSE, BUN, CREATININE, CA)2021-10-18 01:11:26* Test Item Value Reference Range Interpretation Comme nts NA (test code = 0972114059) 141 mmol/L 135-145 K (test code = 8705719848) 4.6 mmol/L 3.5-5.0 CL (test code = 8052731117) 106 mmol/L 98-108 CO2 TOTAL (test code = 7592504300) 26 mmol/L 23-31 AGAP (test code = 2421658138) 2-16 BUN (test code = 0470782114) 28 mg/dL 7-23 H GLUCOSE (test code = 5769518796) 180 mg/dL 70-110 H CREATININE (test code = 5332889649) 0.82 mg/dL 0.50-1.04 CALCIUM (test code = 9772557093) 8.3 mg/dL 8.6-10.6 L eGFR (test code = 3041493721) mL/min/1.73m2 LUCILLE (test code = LUCILLE) Association [...] imaging tests). Lab Interpretation (test code = 28088-0) [facility] [id number] 22:06:03* Test Item Value Reference Range Interpretation Comme nts NT-proBNP (test code = 2181422569) 250 pg/mL See_Comment H [Automated message] The system which generated this result transmitted reference range: <=125. The reference range was not used to interpret this result as normal/abnormal. LUCILLE (test code = LUCILLE) Biotin has been reported to cause a negative bias, interpret results relative to patient's use of biotin. Lab Interpretation (test code = 88258-1) [facility]normal [facility] [id number] 22:06:03* Test Item Value Reference Range Interpretation Comme nts NT-proBNP (test code = 2488608627) 250 pg/mL See_Comment H [Automated message] The system which generated this result transmitted reference range: <=125. The reference range was not used to interpret this result as normal/abnormal. LUCILLE (test code = LUCILLE) Biotin has been reported to cause a negative bias, interpret results relative to patient's use of biotin. Lab Interpretation (test code = 54175-5) [facility]+COOX+NA+K+GLU+CA2+2021-10-17 21:42:22* Test Item Value Reference Range Interpretation Comme nts PH (test code = 2) 7.35-7.45 PCO2 (test code = 4270509611) See_Comment [Automated messa ge] The system which generated this result transmitted reference range: 35 - 45 mmHg. The reference range was not used to interpret this result as normal/abnormal. PO2 (test code = 1634676633) See_Comment H [Automated messa ge] The system which generated this result transmitted reference range: 80 - 100 mmHg. The reference range was not used to interpret this result as normal/abnormal. HCO3 (test code = 7655920998) See_Comment [Automated messa ge] The system which generated this result transmitted reference range: 22 - 26 mEq/L. The reference range was not used to interpret this result as normal/abnormal. BE (test code = 1123337042) See_Comment [Automated messa ge] The system which generated this result transmitted reference range: -3.0 - 3.0 mEq/L. The reference range was not used to interpret this result as normal/abnormal. THB (test code = 2031237314) 13.0 g/dL 12.0-16.0 %O2HB (test code = 0530803311) 98.9 % 94.0-99.0 %COHB ART (test code = 8679204059) 0.3 % 0.0-1.5 %METHB ART (test code = 6681469509) 0.0 % 0.4-1.5 L VOL%O2 ART (test code = 1236705198) 18.5 % 15.0-23.0 NA (test code = 4328778903) 139 mmol/L 135-145 K+ (test code = 8289198919) 4.6 mmol/L 3.5-5.0 AC CA IONZ (test code = 3349113661) 4.50 mg/dL 4.50-5.30 GLUCOSE (test code = 3579883770) 166 mg/dL 70-110 H Lab Interpretation (test code = 24980-3) [facility]+COOX+NA+K+GLU+CA2+2021-10-17 21:42:22* Test Item Value Reference Range Interpretation Comme nts PH (test code = 2) 7.35-7.45 PCO2 (test code = 2167985716) See_Comment [Automated messa ge] The system which generated this result transmitted reference range: 35 - 45 mmHg. The reference range was not used to interpret this result as normal/abnormal. PO2 (test code = 6079682467) See_Comment H [Automated messa ge] The system which generated this result transmitted reference range: 80 - 100 mmHg. The reference range was not used to interpret this result as normal/abnormal. HCO3 (test code = 2716945266) See_Comment [Automated messa ge] The system which generated this result transmitted reference range: 22 - 26 mEq/L. The reference range was not used to interpret this result as normal/abnormal. BE (test code = 5522783876) See_Comment [Automated messa ge] The system which generated this result transmitted reference range: -3.0 - 3.0 mEq/L. The reference range was not used to interpret this result as normal/abnormal. THB (test code = 2289427100) 13.0 g/dL 12.0-16.0 %O2HB (test code = 5691650547) 98.9 % 94.0-99.0 %COHB ART (test code = 2835872761) 0.3 % 0.0-1.5 %METHB ART (test code = 4255365091) 0.0 % 0.4-1.5 L VOL%O2 ART (test code = 5535787541) 18.5 % 15.0-23.0 NA (test code = 3988593514) 139 mmol/L 135-145 K+ (test code = 5433067876) 4.6 mmol/L 3.5-5.0 AC CA IONZ (test code = 2720520019) 4.50 mg/dL 4.50-5.30 GLUCOSE (test code = 8551646856) 166 mg/dL 70-110 H Lab Interpretation (test code = 57530-4) Abnormal [facility] WITH [id number] 11:01:03* Test Item Value Reference Range Interpretation [...] 33.2 g/dL 31.6-35.1 RDW-SD (test code = 77524-9) 44.5 fL 39.0-49.9 RDW-CV (test code = 788-0) 14.1 % 12.0-15.5 PLT (test code = 777-3) See_Comment [Automated message] The system which generated this result transmitted reference range: 166 - 358 10*3/?L. The reference range was not used to interpret this result as normal/abnormal. MPV (test code = 00703-0) 11.0 fL 9.5-12.9 NRBC/100 WBC (test code = 7189033612) See_Comment [Automated message] The system which generated this result transmitted reference range: 0.0 - 10.0 /100 WBCs. The reference range was not used to interpret this result as normal/abnormal. NRBC x10^3 (test code = 7902486892) <0.01 See_Comment [Automated message] The system which generated this result transmitted reference range: 10*3/?L. The reference range was not used to interpret this result as normal/abnormal. GRAN MAT (NEUT) % (test code = 770-8) 91.6 % IMM GRAN % (test code = 8974768682) 1.40 % LYMPH % (test code = 736-9) 5.5 % MONO % (test code = 5905-5) 1.4 % EOS % (test code = 713-8) 0.0 % BASO % (test code = 706-2) 0.1 % GRAN MAT x10^3(ANC) (test code = 4260381217) 17.75 10*3/uL 1.88-7.09 H IMM GRAN x10^3 (test code = 0868290176) 0.27 10*3/uL 0.00-0.06 H LYMPH x10^3 (test code = 731-0) 1.06 10*3/uL 1.32-3.29 L MONO x10^3 (test code = 742-7) 0.28 10*3/uL 0.33-0.92 L EOS x10^3 (test code = 711-2) <0.03 0.03-0.39 L BASO x10^3 (test code = 704-7) <0.03 0.01-0.07 TOXIC CHANGES (test code = 803-7) Present A Lab Interpretation (test code = 78966-4) Abnormal [facility] WITH [id number] 11:01:03* Test Item Value Reference Range Interpretation [...] 33.2 g/dL 31.6-35.1 RDW-SD (test code = 05865-7) 44.5 fL 39.0-49.9 RDW-CV (test code = 788-0) 14.1 % 12.0-15.5 PLT (test code = 777-3) See_Comment [Automated message] The system which generated this result transmitted reference range: 166 - 358 10*3/?L. The reference range was not used to interpret this result as normal/abnormal. MPV (test code = 13757-0) 11.0 fL 9.5-12.9 NRBC/100 WBC (test code = 9643350811) See_Comment [Automated message] The system which generated this result transmitted reference range: 0.0 - 10.0 /100 WBCs. The reference range was not used to interpret this result as normal/abnormal. NRBC x10^3 (test code = 6482126822) <0.01 See_Comment [Automated message] The system which generated this result transmitted reference range: 10*3/?L. The reference range was not used to interpret this result as normal/abnormal. GRAN MAT (NEUT) % (test code = 770-8) 91.6 % IMM GRAN % (test code = 2575982271) 1.40 % LYMPH % (test code = 736-9) 5.5 % MONO % (test code = 5905-5) 1.4 % EOS % (test code = 713-8) 0.0 % BASO % (test code = 706-2) 0.1 % GRAN MAT x10^3(ANC) (test code = 5928897833) 17.75 10*3/uL 1.88-7.09 H IMM GRAN x10^3 (test code = 2496076773) 0.27 10*3/uL 0.00-0.06 H LYMPH x10^3 (test code = 731-0) 1.06 10*3/uL 1.32-3.29 L MONO x10^3 (test code = 742-7) 0.28 10*3/uL 0.33-0.92 L EOS x10^3 (test code = 711-2) <0.03 0.03-0.39 L BASO x10^3 (test code = 704-7) <0.03 0.01-0.07 TOXIC CHANGES (test code = 803-7) Present A Lab Interpretation (test code = 35936-3) Abnormal [facility] METABOLIC PANEL (NA, K, CL, CO2, GLUCOSE, BUN, CREATININE, CA)2021-10-17 10:54:32* Test Item Value Reference Range Interpretation Comme nts NA (test code = 4702126196) 135 mmol/L 135-145 K (test code = 0273715550) 5.2 mmol/L 3.5-5.0 H Slight hemolysis CL (test code = 7031404523) 101 mmol/L 98-108 CO2 TOTAL (test code = 6561414794) 27 mmol/L 23-31 AGAP (test code = 3102075204) 2-16 BUN (test code = 5663231969) 21 mg/dL 7-23 Slight hemolysis GLUCOSE (test code = 1714950402) 153 mg/dL 70-110 H CREATININE (test code = 9063468842) 0.71 mg/dL 0.50-1.04 CALCIUM (test code = 5034618256) 8.3 mg/dL 8.6-10.6 L eGFR (test code = 2935487121) mL/min/1.73m2 LUCILLE (test code = LUCILLE) Association [...] imaging tests). Lab Interpretation (test code = 26903-1) [facility] 10:54:32* Test Item Value Reference Range Interpretation Comme nts MAGNESIUM (test code = 9643588705) 2.2 mg/dL 1.7-2.4 Lab Interpretation (test cod e = 51820-2) Normal [facility]-14 10:54:32* Test Item Value Reference Range Interpretation Comme nts PHOSPHORUS (test code = 0097254913) 5.9 mg/dL 2.5-5.0 H Lab Interpretation (test cod e = 50097-6) [facility] (NA, K, CL, CO2, GLUCOSE, BUN, CREATININE, CA)2021-10-17 10:54:32* Test Item Value Reference Range Interpretation Comme nts NA (test code = 6339654655) 135 mmol/L 135-145 K (test code = 3646617839) 5.2 mmol/L 3.5-5.0 H Slight hemolysis CL (test code = 3659927985) 101 mmol/L 98-108 CO2 TOTAL (test code = 6431219553) 27 mmol/L 23-31 AGAP (test code = 9905693868) 2-16 BUN (test code = 9918656001) 21 mg/dL 7-23 Slight hemolysis GLUCOSE (test code = 3667216955) 153 mg/dL 70-110 H CREATININE (test code = 2157548215) 0.71 mg/dL 0.50-1.04 CALCIUM (test code = 2338549505) 8.3 mg/dL 8.6-10.6 L eGFR (test code = 8935201690) mL/min/1.73m2 LUCILLE (test code = LUCILLE) Association [...] imaging tests). Lab Interpretation (test code = 08224-5) [facility] 10:54:32* Test Item Value Reference Range Interpretation Comme nts MAGNESIUM (test code = 1511773868) 2.2 mg/dL 1.7-2.4 Lab Interpretation (test cod e = 92572-3) Normal [facility]2022-02-14 10:54:32* Test Item Value Reference Range Interpretation Comme nts PHOSPHORUS (test code = 9126690422) 5.9 mg/dL 2.5-5.0 H Lab Interpretation (test cod e = 74289-1) Abnormal [facility]2022-02-14 10:53:06* Test Item Value Reference Range Interpretation Comme nts ESR (test code = 7200047301) See_Comment H [Automated messa ge] The system which generated this result transmitted reference range: 0 - 20 mm/HR. The reference range was not used to interpret this result as normal/abnormal. Lab Interpretation (test code = 68719-3) Abnormal [facility]2022-02-14 10:53:06* Test Item Value Reference Range Interpretation Comme nts ESR (test code = 0009146239) See_Comment H [Automated messa ge] The system which generated this result transmitted reference range: 0 - 20 mm/HR. The reference range was not used to interpret this result as normal/abnormal. Lab Interpretation (test code = 64463-8) Abnormal [facility]2022-02-13 11:13:05* Test Item Value Reference Range Interpretation Comme nts MAGNESIUM (test code = 0284448671) 2.3 mg/dL 1.7-2.4 Lab Interpretation (test cod e = 24261-8) Normal [facility]2022-02-13 11:13:05* Test Item Value Reference Range Interpretation Comme nts PHOSPHORUS (test code = 7208814797) 3.4 mg/dL 2.5-5.0 Lab Interpretation (test cod e = 88515-4) Normal [facility]2022-02-13 11:13:05* Test Item Value Reference Range Interpretation Comme nts MAGNESIUM (test code = 0759135731) 2.3 mg/dL 1.7-2.4 Lab Interpretation (test cod e = 93898-1) Normal [facility]2022-02-13 11:13:05* Test Item Value Reference Range Interpretation Comme nts PHOSPHORUS (test code = 5426416145) 3.4 mg/dL 2.5-5.0 Lab Interpretation (test cod e = 02574-0) Normal [facility] METABOLIC PANEL (NA, K, CL, CO2, GLUCOSE, BUN, CREATININE, CA)2021-10-16 11:13:04* Test Item Value Reference Range Interpretation Comme nts NA (test code = 0858948782) 135 mmol/L 135-145 K (test code = 6644622603) 4.6 mmol/L 3.5-5.0 CL (test code = 3742171507) 102 mmol/L 98-108 CO2 TOTAL (test code = 8792225292) 29 mmol/L 23-31 AGAP (test code = 3161141590) 2-16 BUN (test code = 7897203168) 24 mg/dL 7-23 H GLUCOSE (test code = 7261860227) 90 mg/dL 70-110 CREATININE (test code = 9365582757) 0.87 mg/dL 0.50-1.04 CALCIUM (test code = 0282703992) 8.0 mg/dL 8.6-10.6 L eGFR (test code = 7725494524) mL/min/1.73m2 LUCILLE (test code = LUCILLE) Association [...] imaging tests). Lab Interpretation (test code = 81383-4) Abnormal [facility] METABOLIC PANEL (NA, K, CL, CO2, GLUCOSE, BUN, CREATININE, CA)2021-10-16 11:13:04* Test Item Value Reference Range Interpretation Comme nts NA (test code = 9709278743) 135 mmol/L 135-145 K (test code = 2062048263) 4.6 mmol/L 3.5-5.0 CL (test code = 7348510656) 102 mmol/L 98-108 CO2 TOTAL (test code = 8427855606) 29 mmol/L 23-31 AGAP (test code = 0914734229) 2-16 BUN (test code = 2614051728) 24 mg/dL 7-23 H GLUCOSE (test code = 6863660859) 90 mg/dL 70-110 CREATININE (test code = 4137490444) 0.87 mg/dL 0.50-1.04 CALCIUM (test code = 5733943765) 8.0 mg/dL 8.6-10.6 L eGFR (test code = 0893957624) mL/min/1.73m2 LUCILLE (test code = LUCILLE) Association [...] imaging tests). Lab Interpretation (test code = 76472-8) [facility] + LACTIC [id number] 10:59:55* Test Item Value Reference Range Interpretation Comme nts PH (test code = 2) 7.35-7.45 PCO2 (test code = 6738236405) See_Comment [Automated messa [employer]] The system which generated this result transmitted reference range: 35 - 45 mmHg. The reference range was not used to interpret this result as normal/abnormal. PO2 (test code = 5651355782) See_Comment L [Automated messa ge] The system which generated this result transmitted reference range: 80 - 100 mmHg. The reference range was not used to interpret this result as normal/abnormal. HCO3 (test code = 4887103484) See_Comment H [Automated messa ge] The system which generated this result transmitted reference range: 22 - 26 mEq/L. The reference range was not used to interpret this result as normal/abnormal. BE (test code = 2883540751) See_Comment [Automated messa ge] The system which generated this result transmitted reference range: -3.0 - 3.0 mEq/L. The reference range was not used to interpret this result as normal/abnormal. THB (test code = 6432502626) 13.7 g/dL 12.0-16.0 %O2HB (test code = 5616534343) 86.3 % 94.0-99.0 L %COHB ART (test code = 6268759403) 0.1 % 0.0-1.5 %METHB ART (test code = 9404981248) 0.1 % 0.4-1.5 L VOL%O2 ART (test code = 0138328556) 16.6 % 15.0-23.0 NA (test code = 0709165169) 135 mmol/L 135-145 K+ (test code = 1797278324) 4.6 mmol/L 3.5-5.0 AC CA IONZ (test code = 9829197288) 4.70 mg/dL 4.50-5.30 GLUCOSE (test code = 2453565235) 88 mg/dL 70-110 LACTIC ACID (test code = 9320076152) 1.41 mmol/L 0.50-2.20 QUES Lab Interpretation (test code = 24543-7) [facility] L[facility]IC [id number] 10:59:55* Test Item Value Reference Range Interpretation Comme nts PH (test code = 2) 7.35-7.45 PCO2 (test code = 6289739729) See_Comment [Automated messa ge] The system which generated this result transmitted reference range: 35 - 45 mmHg. The reference range was not used to interpret this result as normal/abnormal. PO2 (test code = 0787101521) See_Comment L [Automated messa ge] The system which generated this result transmitted reference range: 80 - 100 mmHg. The reference range was not used to interpret this result as normal/abnormal. HCO3 (test code = 8041916223) See_Comment H [Automated messa ge] The system which generated this result transmitted reference range: 22 - 26 mEq/L. The reference range was not used to interpret this result as normal/abnormal. BE (test code = 4258514830) See_Comment [Automated messa ge] The system which generated this result transmitted reference range: -3.0 - 3.0 mEq/L. The reference range was not used to interpret this result as normal/abnormal. THB (test code = 7705310148) 13.7 g/dL 12.0-16.0 %O2HB (test code = 7329107791) 86.3 % 94.0-99.0 L %COHB ART (test code = 6810619005) 0.1 % 0.0-1.5 %METHB ART (test code = 6056730066) 0.1 % 0.4-1.5 L VOL%O2 ART (test code = 0339459129) 16.6 % 15.0-23.0 NA (test code = 9821450019) 135 mmol/L 135-145 K+ (test code = 7044195991) 4.6 mmol/L 3.5-5.0 AC CA IONZ (test code = 7600419329) 4.70 mg/dL 4.50-5.30 GLUCOSE (test code = 7667274524) 88 mg/dL 70-110 LACTIC ACID (test code = 5060734017) 1.41 mmol/L 0.50-2.20 QUES Lab Interpretation (test code = 22413-8) Abnormal [facility] WITH [id number] 10:54:01* Test Item Value Reference Range Interpretation [...] 32.3 g/dL 31.6-35.1 RDW-SD (test code = 00755-3) 47.0 fL 39.0-49.9 RDW-CV (test code = 788-0) 14.6 % 12.0-15.5 PLT (test code = 777-3) See_Comment [Automated message] The system which generated this result transmitted reference range: 166 - 358 10*3/?L. The reference range was not used to interpret this result as normal/abnormal. MPV (test code = 22692-1) 10.5 fL 9.5-12.9 NRBC/100 WBC (test code = 6374389183) See_Comment [Automated message] The system which generated this result transmitted reference range: 0.0 - 10.0 /100 WBCs. The reference range was not used to interpret this result as normal/abnormal. NRBC x10^3 (test code = 5299423520) See_Comment [Automated message] The system which generated this result transmitted reference range: 10*3/?L. The reference range was not used to interpret this result as normal/abnormal. GRAN MAT (NEUT) % (test code = 770-8) 85.6 % IMM GRAN % (test code = 7457537097) 1.10 % LYMPH % (test code = 736-9) 9.7 % MONO % (test code = 5905-5) 3.0 % EOS % (test code = 713-8) 0.5 % BASO % (test code = 706-2) 0.1 % GRAN MAT x10^3(ANC) (test code = 5754336997) 12.97 10*3/uL 1.88-7.09 H IMM GRAN x10^3 (test code = 8520782029) 0.16 10*3/uL 0.00-0.06 H LYMPH x10^3 (test code = 731-0) 1.47 10*3/uL 1.32-3.29 MONO x10^3 (test code = 742-7) 0.45 10*3/uL 0.33-0.92 EOS x10^3 (test code = 711-2) 0.08 10*3/uL 0.03-0.39 BASO x10^3 (test code = 704-7) <0.03 0.01-0.07 Lab Interpretation (test code = 71341-3) Abnormal [facility] WITH [id number] 10:54:01* Test Item Value Reference Range Interpretation [...] 32.3 g/dL 31.6-35.1 RDW-SD (test code = 55521-3) 47.0 fL 39.0-49.9 RDW-CV (test code = 788-0) 14.6 % 12.0-15.5 PLT (test code = 777-3) See_Comment [Automated message] The system which generated this result transmitted reference range: 166 - 358 10*3/?L. The reference range was not used to interpret this result as normal/abnormal. MPV (test code = 49548-7) 10.5 fL 9.5-12.9 NRBC/100 WBC (test code = 6993539442) See_Comment [Automated message] The system which generated this result transmitted reference range: 0.0 - 10.0 /100 WBCs. The reference range was not used to interpret this result as normal/abnormal. NRBC x10^3 (test code = 7396782009) See_Comment [Automated message] The system which generated this result transmitted reference range: 10*3/?L. The reference range was not used to interpret this result as normal/abnormal. GRAN MAT (NEUT) % (test code = 770-8) 85.6 % IMM GRAN % (test code = 2749912186) 1.10 % LYMPH % (test code = 736-9) 9.7 % MONO % (test code = 5905-5) 3.0 % EOS % (test code = 713-8) 0.5 % BASO % (test code = 706-2) 0.1 % GRAN MAT x10^3(ANC) (test code = 7993857460) 12.97 10*3/uL 1.88-7.09 H IMM GRAN x10^3 (test code = 6568495821) 0.16 10*3/uL 0.00-0.06 H LYMPH x10^3 (test code = 731-0) 1.47 10*3/uL 1.32-3.29 MONO x10^3 (test code = 742-7) 0.45 10*3/uL 0.33-0.92 EOS x10^3 (test code = 711-2) 0.08 10*3/uL 0.03-0.39 BASO x10^3 (test code = 704-7) <0.03 0.01-0.07 Lab Interpretation (test code = 88746-2) Abnormal [facility]-REACTIVE [id number] 23:24:07* Test Item Value Reference Range Interpretation Comme nts CRP (test code = 3770430352) 22.1 mg/dL <1.0 H Lab Interpretation (test cod e = 55139-3) Abnormal [facility]-REACTIVE [id number] 23:24:07* Test Item Value Reference Range Interpretation Comme nts CRP (test code = 6169518777) 22.1 mg/dL <1.0 H Lab Interpretation (test cod e = 43886-3) [facility] [id number] 23:21:42* Test Item Value Reference Range Interpretation Comments TROPONIN I (test code = 1258261654) 0.003 ng/mL See_Comment [Automated message] The system [...] of biotin. Lab Interpretation (test code = 96129-6) Normal [facility] TylerTroponin [id number] 23:21:42* Test Item Value Reference Range Interpretation Comments TROPONIN I (test code = 4365850269) 0.003 ng/mL See_Comment [Automated message] The system [...] of biotin. Lab Interpretation (test code = 52464-0) Normal [facility] METABOLIC PANEL (NA, K, CL, CO2, GLUCOSE, BUN, CREATININE, CA)2021-10-15 23:12:40* Test Item Value Reference Range Interpretation Comme nts NA (test code = 2750521465) 136 mmol/L 135-145 K (test code = 5617229765) 4.8 mmol/L 3.5-5.0 CL (test code = 5829887917) 104 mmol/L 98-108 CO2 TOTAL (test code = 7373814625) 26 mmol/L 23-31 AGAP (test code = 2759706341) 2-16 BUN (test code = 7533167079) 22 mg/dL 7-23 GLUCOSE (test code = 6490192730) 114 mg/dL 70-110 H CREATININE (test code = 8558946411) 0.77 mg/dL 0.50-1.04 CALCIUM (test code = 1717315610) 8.2 mg/dL 8.6-10.6 L eGFR (test code = 9208568022) mL/min/1.73m2 LUCILLE (test code = LUCILLE) Association [...] imaging tests). Lab Interpretation (test code = 75636-0) Abnormal [facility] METABOLIC PANEL (NA, K, CL, CO2, GLUCOSE, BUN, CREATININE, CA)2021-10-15 23:12:40* Test Item Value Reference Range Interpretation Comme nts NA (test code = 7362931845) 136 mmol/L 135-145 K (test code = 5785460079) 4.8 mmol/L 3.5-5.0 CL (test code = 2475534363) 104 mmol/L 98-108 CO2 TOTAL (test code = 2589394057) 26 mmol/L 23-31 AGAP (test code = 4254812245) 2-16 BUN (test code = 9595391210) 22 mg/dL 7-23 GLUCOSE (test code = 5113366006) 114 mg/dL 70-110 H CREATININE (test code = 6367247741) 0.77 mg/dL 0.50-1.04 CALCIUM (test code = 6316876595) 8.2 mg/dL 8.6-10.6 L eGFR (test code = 4131358272) mL/min/1.73m2 LUCILLE (test code = LUCILLE) Association [...] imaging tests). Lab Interpretation (test code = 38480-3) [facility]normal [facility] [id number] 21:55:57* Test Item Value Reference Range Interpretation Comments TROPONIN I (test code = 2974555700) 0.003 ng/mL See_Comment [Automated message] The system [...] of biotin. Lab Interpretation (test code = 63049-6) Normal [facility] TylerTroponin [id number] 21:55:57* Test Item Value Reference Range Interpretation Comments TROPONIN I (test code = 0740595323) 0.003 ng/mL See_Comment [Automated message] The system [...] of biotin. Lab Interpretation (test code = 41294-4) Normal [facility] TylerPROCALCITONIN2022-02-12 19:07:46* Test Item Value Reference Range Interpretation Comme nts Procalcitonin (test code = 4942269877) 0.15 ng/mL <0.08 H LUCILLE (test code [...] lung abscess/empyema. For further information please refer to:[email or web address] Lab Interpretation (test code = 29505-8) Abnormal [facility] TylerPROCALCITONIN2022-02-12 19:07:46* Test Item Value Reference Range Interpretation Comme nts Procalcitonin (test code = 0704642398) 0.15 ng/mL <0.08 H LUCILLE (test code [...] lung abscess/empyema. For further information please refer to:[email or web address] Lab Interpretation (test code = 78452-6) Abnormal [facility] TylerN-TERMINAL EUK-[id number] 18:31:24* Test Item Value Reference Range Interpretation Comme nts NT-proBNP (test code = 5337729738) 43 pg/mL See_Comment [Automated message] The system which generated this result transmitted reference range: <=125. The reference range was not used to interpret this result as normal/abnormal. LUCILLE (test code = LUCILLE) Biotin has been reported to cause a negative bias, interpret results relative to patient's use of biotin. Lab Interpretation (test code = 80240-1) Normal [facility] TylerN-TERMINAL [id number] 18:31:24* Test Item Value Reference Range Interpretation Comme nts NT-proBNP (test code = 7693804696) 43 pg/mL See_Comment [Automated message] The system which generated this result transmitted reference range: <=125. The reference range was not used to interpret this result as normal/abnormal. LUCILLE (test code = LUCILLE) Biotin has been reported to cause a negative bias, interpret results relative to patient's use of biotin. Lab Interpretation (test code = 22171-0) Normal [facility] TylerProcalcitonin2022-02-12 09:17:58* Test Item Value Reference Range Interpretation Comme nts Procalcitonin (test code = 7764339489) 0.15 ng/mL <0.08 H LUCILLE (test code [...] lung abscess/empyema. For further information please refer to:[email or web address] Lab Interpretation (test code = 25655-8) Abnormal [facility] TylerProcalcitonin2022-02-12 09:17:58* Test Item Value Reference Range Interpretation Comme nts Procalcitonin (test code = 6542468511) 0.15 ng/mL <0.08 H LUCILLE (test code [...] lung abscess/empyema. For further information please refer to:[email or web address] Lab Interpretation (test code = 46936-0) [facility] (NA, K, CL, CO2, GLUCOSE, BUN, CREATININE, CA)2021-10-15 08:36:11* Test Item Value Reference Range Interpretation Comme nts NA (test code = 1106665082) 139 mmol/L 135-145 K (test code = 1632260251) 5.5 mmol/L 3.5-5.0 H Slight hemolysis CL (test code = 6537027892) 104 mmol/L 98-108 CO2 TOTAL (test code = 1537620135) 29 mmol/L 23-31 AGAP (test code = 7469006267) 2-16 BUN (test code = 3735965728) 17 mg/dL 7-23 Slight hemolysis GLUCOSE (test code = 6638008530) 131 mg/dL 70-110 H CREATININE (test code = 8202595425) 0.77 mg/dL 0.50-1.04 CALCIUM (test code = 5432053323) 8.5 mg/dL 8.6-10.6 L eGFR (test code = 2631726035) mL/min/1.73m2 LUCILLE (test code = LUCILLE) Association [...] imaging tests). Lab Interpretation (test code = 39861-3) Abnormal [facility] Iztfr9961-05-78 08:36:11* Test Item Value Reference Range Interpretation Comme nts MAGNESIUM (test code = 0586891021) 2.4 mg/dL 1.7-2.4 Lab Interpretation (test cod e = 29643-7) Normal [facility] (NA, K, CL, CO2, GLUCOSE, BUN, CREATININE, CA)2021-10-15 08:36:11* Test Item Value Reference Range Interpretation Comme nts NA (test code = 5524820611) 139 mmol/L 135-145 K (test code = 2166806648) 5.5 mmol/L 3.5-5.0 H Slight hemolysis CL (test code = 8723849417) 104 mmol/L 98-108 CO2 TOTAL (test code = 2552642479) 29 mmol/L 23-31 AGAP (test code = 2732550638) 2-16 BUN (test code = 9318843576) 17 mg/dL 7-23 Slight hemolysis GLUCOSE (test code = 9359053327) 131 mg/dL 70-110 H CREATININE (test code = 1323122261) 0.77 mg/dL 0.50-1.04 CALCIUM (test code = 3727285625) 8.5 mg/dL 8.6-10.6 L eGFR (test code = 2270623388) mL/min/1.73m2 LUCILLE (test code = LUCILLE) Association [...] imaging tests). Lab Interpretation (test code = 15200-1) [facility]5643-[facility] 08:36:11* Test Item Value Reference Range Interpretation Comme nts MAGNESIUM (test code = 4273288696) 2.4 mg/dL 1.7-2.4 Lab Interpretation (test cod e = 33016-8) Normal [facility] [id number] 08:21:08* Test Item Value Reference Range Interpretation Comments TROPONIN I (test code = 1101934103) 0.005 ng/mL See_Comment [Automated message] The system [...] of biotin. Lab Interpretation (test code = 77218-3) Normal [facility] [id number] 08:21:08* Test Item Value Reference Range Interpretation Comments TROPONIN I (test code = 8377399631) 0.005 ng/mL See_Comment [Automated message] The system [...] of biotin. Lab Interpretation (test code = 59424-9) Normal [facility] WITH [id number] 07:37:26* Test Item Value Reference Range Interpretation [...] 33.0 g/dL 31.6-35.1 RDW-SD (test code = 93141-1) 47.4 fL 39.0-49.9 RDW-CV (test code = 788-0) 14.6 % 12.0-15.5 PLT (test code = 777-3) See_Comment [Automated message] The system which generated this result transmitted reference range: 166 - 358 10*3/?L. The reference range was not used to interpret this result as normal/abnormal. MPV (test code = 90605-1) 11.1 fL 9.5-12.9 NRBC/100 WBC (test code = 2643736525) See_Comment [Automated message] The system which generated this result transmitted reference range: 0.0 - 10.0 /100 WBCs. The reference range was not used to interpret this result as normal/abnormal. NRBC x10^3 (test code = 1181200170) <0.01 See_Comment [Automated message] The system which generated this result transmitted reference range: 10*3/?L. The reference range was not used to interpret this result as normal/abnormal. GRAN MAT (NEUT) % (test code = 770-8) 92.0 % IMM GRAN % (test code = 0387830817) 1.10 % LYMPH % (test code = 736-9) 5.0 % MONO % (test code = 5905-5) 1.8 % EOS % (test code = 713-8) 0.0 % BASO % (test code = 706-2) 0.1 % GRAN MAT x10^3(ANC) (test code = 6767733130) 20.65 10*3/uL 1.88-7.09 H IMM GRAN x10^3 (test code = 3235139170) 0.25 10*3/uL 0.00-0.06 H LYMPH x10^3 (test code = 731-0) 1.13 10*3/uL 1.32-3.29 L MONO x10^3 (test code = 742-7) 0.40 10*3/uL 0.33-0.92 EOS x10^3 (test code = 711-2) <0.03 0.03-0.39 L BASO x10^3 (test code = 704-7) 0.03 10*3/uL 0.01-0.07 Lab Interpretation (test code = 15204-7) Abnormal [facility] WITH [id number] 07:37:26* Test Item Value Reference Range Interpretation [...] 33.0 g/dL 31.6-35.1 RDW-SD (test code = 78363-4) 47.4 fL 39.0-49.9 RDW-CV (test code = 788-0) 14.6 % 12.0-15.5 PLT (test code = 777-3) See_Comment [Automated message] The system which generated this result transmitted reference range: 166 - 358 10*3/?L. The reference range was not used to interpret this result as normal/abnormal. MPV (test code = 13675-5) 11.1 fL 9.5-12.9 NRBC/100 WBC (test code = 4147196203) See_Comment [Automated message] The system which generated this result transmitted reference range: 0.0 - 10.0 /100 WBCs. The reference range was not used to interpret this result as normal/abnormal. NRBC x10^3 (test code = 4113395760) <0.01 See_Comment [Automated message] The system which generated this result transmitted reference range: 10*3/?L. The reference range was not used to interpret this result as normal/abnormal. GRAN MAT (NEUT) % (test code = 770-8) 92.0 % IMM GRAN % (test code = 9627749093) 1.10 % LYMPH % (test code = 736-9) 5.0 % MONO % (test code = 5905-5) 1.8 % EOS % (test code = 713-8) 0.0 % BASO % (test code = 706-2) 0.1 % GRAN MAT x10^3(ANC) (test code = 0865817181) 20.65 10*3/uL 1.88-7.09 H IMM GRAN x10^3 (test code = 4460987341) 0.25 10*3/uL 0.00-0.06 H LYMPH x10^3 (test code = 731-0) 1.13 10*3/uL 1.32-3.29 L MONO x10^3 (test code = 742-7) 0.40 10*3/uL 0.33-0.92 EOS x10^3 (test code = 711-2) <0.03 0.03-0.39 L BASO x10^3 (test code = 704-7) 0.03 10*3/uL 0.01-0.07 Lab Interpretation (test code = 79083-8) [facility]+COOX+NA+K+GLU+CA2+2021-10-15 07:28:14* Test Item Value Reference Range Interpretation Comme nts PH (test code = 2) 7.35-7.45 PCO2 (test code = 5848174032) See_Comment [Automated messa ge] The system which generated this result transmitted reference range: 35 - 45 mmHg. The reference range was not used to interpret this result as normal/abnormal. PO2 (test code = 9862449623) See_Comment H [Automated messa ge] The system which generated this result transmitted reference range: 80 - 100 mmHg. The reference range was not used to interpret this result as normal/abnormal. HCO3 (test code = 1373588505) See_Comment [Automated messa ge] The system which generated this result transmitted reference range: 22 - 26 mEq/L. The reference range was not used to interpret this result as normal/abnormal. BE (test code = 1485150439) See_Comment [Automated messa ge] The system which generated this result transmitted reference range: -3.0 - 3.0 mEq/L. The reference range was not used to interpret this result as normal/abnormal. THB (test code = 0511899718) 13.1 g/dL 12.0-16.0 %O2HB (test code = 1771955367) 98.7 % 94.0-99.0 %COHB ART (test code = 4450615881) 0.4 % 0.0-1.5 %METHB ART (test code = 5498905812) 0.0 % 0.4-1.5 L VOL%O2 ART (test code = 8569285117) 18.5 % 15.0-23.0 QUES NA (test code = 2650548070) 138 mmol/L 135-145 K+ (test code = 5116989718) 5.0 mmol/L 3.5-5.0 AC CA IONZ (test code = 5933714943) 4.50 mg/dL 4.50-5.30 GLUCOSE (test code = 2268730574) 138 mg/dL 70-110 H Lab Interpretation (test code = 32031-3) [facility]+COOX+NA+K+GLU+CA2+2021-10-15 07:28:14* Test Item Value Reference Range Interpretation Comme nts PH (test code = 2) 7.35-7.45 PCO2 (test code = 6422881368) See_Comment [Automated messa ge] The system which generated this result transmitted reference range: 35 - 45 mmHg. The reference range was not used to interpret this result as normal/abnormal. PO2 (test code = 2184235012) See_Comment H [Automated messa ge] The system which generated this result transmitted reference range: 80 - 100 mmHg. The reference range was not used to interpret this result as normal/abnormal. HCO3 (test code = 9234232914) See_Comment [Automated messa ge] The system which generated this result transmitted reference range: 22 - 26 mEq/L. The reference range was not used to interpret this result as normal/abnormal. BE (test code = 6091228480) See_Comment [Automated messa ge] The system which generated this result transmitted reference range: -3.0 - 3.0 mEq/L. The reference range was not used to interpret this result as normal/abnormal. THB (test code = 7756148811) 13.1 g/dL 12.0-16.0 %O2HB (test code = 5491426968) 98.7 % 94.0-99.0 %COHB ART (test code = 1588796892) 0.4 % 0.0-1.5 %METHB ART (test code = 2581045589) 0.0 % 0.4-1.5 L VOL%O2 ART (test code = 6397946559) 18.5 % 15.0-23.0 QUES NA (test code = 8192149026) 138 mmol/L 135-145 K+ (test code = 3395435689) 5.0 mmol/L 3.5-5.0 AC CA IONZ (test code = 5707800241) 4.50 mg/dL 4.50-5.30 GLUCOSE (test code = 0980881421) 138 mg/dL 70-110 H Lab Interpretation (test code = 16266-9) [facility] [id number] 00:00:00 * Test Item Value Reference Range Interpretation Comme nts DEB SPECIES (test code = ) NEGATIVE G. VAGINALIS (test code = 09741) POSITIVE T. VAGINALIS (test code = 28688) NEGATIVE GC AND CHLAMYDIA, AMPLIFIED, [id number] 00:00:00* Test Item Value Reference Range Interpretation Comme nts GONORRHEA, NAAT (test code = 02618) NEGATIVE CHLAMYDIA, NAAT (test code = 74347) NEGATIVE HIV AB/AG COMBO RFLX [id number] 00:00:00* Test Item Value Reference Range Interpretation Comme nts HIV 1/2 4TH GEN, RFLX CONF ( test code = 3514) NON-REACTIVE [id number] 00:00:00* Test Item Value Reference Range Interpretation Comme nts RPR RESULT (test code = 3501) NON-REACTIVE RPR TITER (test code = 3500) NOT INDIC. TITER VAGINAL PATHOGENS DNA [id number] 00:00:00* Test Item Value Reference Range Interpretation Comme nts DEB SPECIES (test code = ) NEGATIVE G. VAGINALIS (test code = 33650) POSITIVE T. VAGINALIS (test code = ) NEGATIVE GC AND CHLAMYDIA, AMPLIFIED, [id number] 00:00:00* Test Item Value Reference Range Interpretation Comme nts GONORRHEA, NAAT (test code = 93845) NEGATIVE CHLAMYDIA, NAAT (test code = 89483) NEGATIVE HIV AB/AG COMBO RFLX [id number] 00:00:00* Test Item Value Reference Range Interpretation Comme nts HIV 1/2 4TH GEN, RFLX CONF ( test code = 3514) NON-REACTIVE [id number] 00:00:00* Test Item Value Reference Range Interpretation Comme nts RPR RESULT (test code = 3501) NON-REACTIVE RPR TITER (test code = 3500) NOT INDIC. TITER VAGINAL PATHOGENS DNA [id number] 00:00:00* Test Item Value Reference Range Interpretation Comme nts DEB SPECIES (test code = ) NEGATIVE G. VAGINALIS (test code = 67140) POSITIVE T. VAGINALIS (test code = 04561) NEGATIVE GC AND CHLAMYDIA, AMPLIFIED, [id number] 00:00:00* Test Item Value Reference Range Interpretation Comme nts GONORRHEA, NAAT (test code = 89690) NEGATIVE CHLAMYDIA, NAAT (test code = 22613) NEGATIVE HIV AB/AG COMBO RFLX [id number] 00:00:00* Test Item Value Reference Range Interpretation Comme nts HIV 1/2 4TH GEN, RFLX CONF ( test code = 3514) NON-REACTIVE VAGINAL PATHOGENS DNA [id number] 00:00:00* Test Item Value Reference Range Interpretation Comme nts DEB SPECIES (test code = ) NEGATIVE G. VAGINALIS (test code = 91886) POSITIVE T. VAGINALIS (test code = 26932) NEGATIVE [id number] 00:00:00* Test Item Value Reference Range Interpretation Comme nts RPR RESULT (test code = 3501) NON-REACTIVE RPR TITER (test code = 3500) NOT INDIC. TITER GC AND CHLAMYDIA, AMPLIFIED, [id number] 00:00:00* Test Item Value Reference Range Interpretation Comme nts GONORRHEA, NAAT (test code = 39186) NEGATIVE CHLAMYDIA, NAAT (test code = 02068) NEGATIVE HIV AB/AG COMBO RFLX [id number] 00:00:00* Test Item Value Reference Range Interpretation Comme nts HIV 1/2 4TH GEN, RFLX CONF ( test code = 3514) NON-REACTIVE [id number] 00:00:00* Test Item Value Reference Range Interpretation Comme nts RPR RESULT (test code = 3501) NON-REACTIVE RPR TITER (test code = 3500) NOT INDIC. TITER VAGINAL PATHOGENS DNA [id number] 00:00:00* Test Item Value Reference Range Interpretation Comme nts DEB SPECIES (test code = ) NEGATIVE G. VAGINALIS (test code = 13456) POSITIVE T. VAGINALIS (test code = 98189) NEGATIVE Dwayne F AustinGC AND CHLAMYDIA, AMPLIFIED, [id number] 00:00:00* Test Item Value Reference Range Interpretation Comme nts GONORRHEA, NAAT (test code = 19548) NEGATIVE CHLAMYDIA, NAAT (test code = 49613) NEGATIVE Dwayne MyersHIV AB/AG COMBO RFLX [id number] 00:00:00* Test Item Value Reference Range Interpretation Comme nts HIV 1/2 4TH GEN, RFLX CONF ( test code = 3514) NON-REACTIVE Dwayne Bah [id number] 00:00:00* Test Item Value Reference Range Interpretation Comme nts RPR RESULT (test code = 3501) NON-REACTIVE RPR TITER (test code = 3500) NOT INDIC. TITER Dwayne MyersVAGINAL PATHOGENS DNA [id number] 00:00:00* Test Item Value Reference Range Interpretation Comme nts DEB SPECIES (test code = 98382) NEGATIVE G. VAGINALIS (test code = 58658) POSITIVE T. VAGINALIS (test code = 99051) NEGATIVE Dwayne Bah AustinGC AND CHLAMYDIA, AMPLIFIED, [id number] 00:00:00* Test Item Value Reference Range Interpretation Comme nts GONORRHEA, NAAT (test code = 88197) NEGATIVE CHLAMYDIA, NAAT (test code = 25844) NEGATIVE Dwayne Bah AustinHIV AB/AG COMBO RFLX [id number] 00:00:00* Test Item Value Reference Range Interpretation Comme nts HIV 1/2 4TH GEN, RFLX CONF ( test code = 3514) NON-REACTIVE Dwayne Bah [id number] 00:00:00* Test Item Value Reference Range Interpretation Comme nts RPR RESULT (test code = 3501) NON-REACTIVE RPR TITER (test code = 3500) NOT INDIC. TITER Dwayne Bah AustinVAGINAL PATHOGENS DNA [id number] 00:00:00* Test Item Value Reference Range Interpretation Comme nts DEB SPECIES (test code = 77273) NEGATIVE G. VAGINALIS (test code = 60292) POSITIVE T. VAGINALIS (test code = 44563) NEGATIVE Dwayne Bah [facility] AND CHLAMYDIA, AMPLIFIED, [id number] 00:00:00* Test Item Value Reference Range Interpretation Comme nts GONORRHEA, NAAT (test code = 54219) NEGATIVE CHLAMYDIA, NAAT (test code = 45478) NEGATIVE Dwayne Bah Austin[facility] AB/AG COMBO RFLX [id number] 00:00:00* Test Item Value Reference Range Interpretation Comme nts HIV 1/2 4TH GEN, RFLX CONF ( test code = 3514) NON-REACTIVE Dwayne Bah [id number] 00:00:00* Test Item Value Reference Range Interpretation Comme nts RPR RESULT (test code = 3501) NON-REACTIVE RPR TITER (test code = 3500) NOT INDIC. TITER Dwayne Bah Austin[facility] PATHOGENS DNA [id number] 00:00:00* Test Item Value Reference Range Interpretation Comme nts DEB SPECIES (test code = ) NEGATIVE G. VAGINALIS (test code = 19374) POSITIVE T. VAGINALIS (test code = 63183) NEGATIVE Dwayne Bah [facility] AND CHLAMYDIA, AMPLIFIED, [id number] 00:00:00* Test Item Value Reference Range Interpretation Comme nts GONORRHEA, NAAT (test code = 79298) NEGATIVE CHLAMYDIA, NAAT (test code = 28956) NEGATIVE Dwayne Bah [facility] AB/AG COMBO RFLX [id number] 00:00:00* Test Item Value Reference Range Interpretation Comme nts HIV 1/2 4TH GEN, RFLX CONF ( test code = 3514) NON-REACTIVE Dwayne Bah [id number] 00:00:00* Test Item Value Reference Range Interpretation Comme nts RPR RESULT (test code = 3501) NON-REACTIVE RPR TITER (test code = 3500) NOT INDIC. TITER Dwayne MyersVAGINAL PATHOGENS DNA [id number] 00:00:00* Test Item Value Reference Range Interpretation Comme nts DEB SPECIES (test code = 96172) NEGATIVE G. VAGINALIS (test code = 27452) POSITIVE T. VAGINALIS (test code = 43571) NEGATIVE Dwayne Bah [facility] AND CHLAMYDIA, AMPLIFIED, [id number] 00:00:00* Test Item Value Reference Range Interpretation Comme nts GONORRHEA, NAAT (test code = 48496) NEGATIVE CHLAMYDIA, NAAT (test code = 87576) NEGATIVE Dwayne Bah Austin[facility] AB/AG COMBO RFLX [id number] 00:00:00* Test Item Value Reference Range Interpretation Comme nts HIV 1/2 4TH GEN, RFLX CONF ( test code = 3514) NON-REACTIVE Dwayne Bah [id number] 00:00:00* Test Item Value Reference Range Interpretation Comme nts RPR RESULT (test code = 3501) NON-REACTIVE RPR TITER (test code = 3500) NOT INDIC. TITER Dwayne Bah [facility] PATHOGENS DNA [id number] 00:00:00* Test Item Value Reference Range Interpretation Comme nts DEB SPECIES (test code = 31821) NEGATIVE G. VAGINALIS (test code = 56346) POSITIVE T. VAGINALIS (test code = 75832) NEGATIVE Dwayne Bah [facility] AND CHLAMYDIA, AMPLIFIED, [id number] 00:00:00* Test Item Value Reference Range Interpretation Comme nts GONORRHEA, NAAT (test code = 46843) NEGATIVE CHLAMYDIA, NAAT (test code = 77829) NEGATIVE Dwayne Bah [facility] AB/AG COMBO RFLX [id number] 00:00:00* Test Item Value Reference Range Interpretation Comme nts HIV 1/2 4TH GEN, RFLX CONF ( test code = 3514) NON-REACTIVE Dwayne Bah [id number] 00:00:00* Test Item Value Reference Range Interpretation Comme nts RPR RESULT (test code = 3501) NON-REACTIVE RPR TITER (test code = 3500) NOT INDIC. TITER Dwayne MyersVAGINAL PATHOGENS DNA [id number] 00:00:00* Test Item Value Reference Range Interpretation Comme nts DEB SPECIES (test code = 33221) NEGATIVE G. VAGINALIS (test code = 46717) POSITIVE T. VAGINALIS (test code = 59747) NEGATIVE Dwayne Bah [facility] AND CHLAMYDIA, AMPLIFIED, [id number] 00:00:00* Test Item Value Reference Range Interpretation Comme nts GONORRHEA, NAAT (test code = 41543) NEGATIVE CHLAMYDIA, NAAT (test code = 49150) NEGATIVE Dwayne Bah Austin[facility] AB/AG COMBO RFLX [id number] 00:00:00* Test Item Value Reference Range Interpretation Comme nts HIV 1/2 4TH GEN, RFLX CONF ( test code = 3514) NON-REACTIVE Dwayne Bah [id number] 00:00:00* Test Item Value Reference Range Interpretation Comme nts RPR RESULT (test code = 3501) NON-REACTIVE RPR TITER (test code = 3500) NOT INDIC. TITER Dwayne MyersVAGINAL PATHOGENS DNA [id number] 00:00:00* Test Item Value Reference Range Interpretation Comme nts DEB SPECIES (test code = 55326) NEGATIVE G. VAGINALIS (test code = 05199) POSITIVE T. VAGINALIS (test code = 74275) NEGATIVE Dwayne MyersGC AND CHLAMYDIA, AMPLIFIED, [id number] 00:00:00* Test Item Value Reference Range Interpretation Comme nts GONORRHEA, NAAT (test code = 31315) NEGATIVE CHLAMYDIA, NAAT (test code = 70632) NEGATIVE Dwayne MyersHIV AB/AG COMBO RFLX [id number] 00:00:00* Test Item Value Reference Range Interpretation Comme nts HIV 1/2 4TH GEN, RFLX CONF ( test code = 3514) NON-REACTIVE Dwayne [id number] 00:00:00* Test Item Value Reference Range Interpretation Comme nts RPR RESULT (test code = 3501) NON-REACTIVE RPR TITER (test code = 3500) NOT INDIC. TITER Dwayne MyersVAGINAL PATHOGENS DNA [id number] 00:00:00* Test Item Value Reference Range Interpretation Comme nts DEB SPECIES (test code = ) NEGATIVE G. VAGINALIS (test code = 84009) POSITIVE T. VAGINALIS (test code = 85974) NEGATIVE Dwayne Bah [facility] AND CHLAMYDIA, AMPLIFIED, [id number] 00:00:00* Test Item Value Reference Range Interpretation Comme nts GONORRHEA, NAAT (test code = 47882) NEGATIVE CHLAMYDIA, NAAT (test code = 21527) NEGATIVE Dwayne Bah AustinHIV AB/AG COMBO RFLX [id number] 00:00:00* Test Item Value Reference Range Interpretation Comme nts HIV 1/2 4TH GEN, RFLX CONF ( test code = 3514) NON-REACTIVE Dwayne Bah [id number] 00:00:00* Test Item Value Reference Range Interpretation Comme nts RPR RESULT (test code = 3501) NON-REACTIVE RPR TITER (test code = 3500) NOT INDIC. TITER Dwayne Myers
--- NOTE | 2024-09-10 16:30 | RAD REPORT ---
EXAMINATION: ONE VIEW CHEST XR CLINICAL INDICATION: CHEST PAIN TECHNIQUE: Frontal chest projection is submitted. Examination is limited by patient positioning and t echnique. COMPARISON: 05/23/2023 FINDINGS: The lungs are well inflated and clear. The heart is upper limit of normal in size. No displaced fract ures identified. Cervical spine hardware. IMPRESSION: No acute intrathoracic abnormalities.
[2024-09-10] MEDS ORDERED: ACETAMINOPHEN 500 MG TAB ONE (16:38)
--- NOTE | 2024-09-10 16:48 | ER ---
Nurse's Notes [facility] Name: Nancie Ordonez Age: 53 yrs Sex: Female : 1970 Arrival Date: 09/10/2024 Time: 15:18 Bed 18 Private MD: Diagnosis: Right shoulder pain Presentation: 09/10 15:23 Chief complaint: Patient states: difficulty breathing x3 days. Has chronic right tm6 shoulder pain, but worsened today. Went to PCP today, she said it looks like my chest is swollen and I'm struggling to breathe. Coronavirus screen: Client denies travel out of the [place] in the last 14 days. Ebola Screen: Patient negative for fever greater than or equal to 101.5 degrees Fahrenheit, and additional compatible Ebola Virus Disease symptoms Patient denies exposure to infectious person. Patient denies travel to an Ebola-affected area in the 21 days before illness onset. No symptoms or risks identified at this time. Initial Sepsis Screen: Does the patient meet any 2 criteria? RR > 20 per min. Does the patient have a suspected source of infection? No. Patient's initial sepsis screen is negative. Risk Assessment: Do you want to hurt yourself or someone else? Patient reports no desire to harm self or others. Onset of symptoms was September 07, 2024. 15:23 Method Of Arrival: Ambulatory 6 15:23 Acuity: DEEPALI 3 tm6 Triage Assessment: 15:51 General: Appears uncomfortable, Behavior is cooperative. Pain: Complains of pain in tm6 anterior aspect of right shoulder and posterior aspect of right shoulder Pain currently is 10 out of 10 on a pain scale. EENT: No signs and/or symptoms were reported regarding the EENT system. Neuro: Level of Consciousness is awake, alert, obeys commands, Oriented to person, place, time, situation. Cardiovascular: Reports swelling in chest Patient's skin is warm and dry. Respiratory: Reports shortness of breath labored breathing since x3 days Airway is patent Respiratory effort is labored, Respiratory pattern is Onset: The symptoms/episode began/occurred x3 days, the patient has mild shortness of breath. GI: No signs and/or symptoms were reported involving the gastrointestinal system. Abdomen is flat, non-distended. : No signs and/or symptoms were reported regarding the genitourinary system. Derm: No signs and/or symptoms reported regarding the dermatologic system. Musculoskeletal: Reports pain in anterior aspect of right shoulder and posterior aspect of right shoulder Pain is 10 out of 10 on a pain scale. Historical: - Allergies: 15:51 Ibuprofen; tm6 15:51 Naproxen; tm6 - PMHx: 15:51 Arthritis; GERD; Gout; Hypertension; Pneumonia; Chronic pain; tm6 - PSHx: 15:51 section; hernia repair; Neck sx; Right arm injury; tm6 - Immunization history:: Flu vaccine is not up to date. - Infectious Disease History:: Denies. - Social history:: Smoking status: Patient denies any tobacco usage or history of. Screenin:30 [facility] ED Fall Risk Assessment (Adult) History of falling in the last 3 months, jb4 including since admission No falls in past 3 months (0 pts) Confusion or Disorientation No (0 pts) Intoxicated or Sedated No (0 pts) Impaired Gait No (0 pts) Mobility Assist Device Used No (0 pt) Altered Elimination No (0 pt) Score/Fall Risk Level 0 - 2 = Low Risk Oriented to surroundings, Maintained a safe environment. Abuse screen: Denies threats or abuse. Nutritional screening: No deficits noted. Tuberculosis screening: No symptoms or risk factors identified. Assessment: 16:45 Reassessment: Patient appears in no apparent distress at this time. Patient and/or jb4 family updated on plan of care and expected duration. Pain level reassessed. Patient is alert, oriented x 3, equal unlabored respirations, skin warm/dry/pink. pt reports wanting pain medication. Provider notified, received verbal order for 1000mg of tylenol. Pt refused tylenol. Provider notified. 16:59 Reassessment: Pt requested IV be removed, pt states " I am leaving, they took an XRay jb4 of my chest not my shoulder, I am in too much pain. I am leaving and going to a better hospital." Offered to ask the ERphysician to add on a shoulder X-Ray and informed the pt that test results were not back yet. Pt states " No I don't care. I am in too much pain for this. I am going to a better hospital.". Vital Signs: 15:23 BP 156 / 99; Pulse 98; Resp 24; Temp 99(O); Pulse Ox 100% on R/A; MAP 118 mmHg; Weight tm6 89.36 kg; Height 5 ft. 3 in. ; Pain 10/10; 16:30 BP 149 / 87; Pulse 94; Resp 16; Pulse Ox 100% on R/A; jb4 15:23 Body Mass Index 34.90 (89.36 kg, 160.02 cm) tm6 15:23 Pain Scale: Adult tm6 ED Course: 15:22 Patient arrived in ED. sj2 15:22 Oxygen administration via nasal cannula. tm6 15:23 EKG done, by ED staff, reviewed by Tiana Galarza MD. tm6 15:26 Tiana Galarza MD is Attending Physician. sp3 15:51 Triage completed. tm6 15:51 Arm band placed on right wrist. tm6 16:00 Patient has correct armband on for positive identification. Bed in low position. Call jb4 light in reach. Side rails up X 1. Provided Education on: plan of care. 16:00 No provider procedures requiring assistance completed. IV discontinued, intact, jb4 bleeding controlled, No redness/swelling at site. Pressure dressing applied. 16:21 XRAY Chest (1 view) In Process Unspecified. EDMS 16:37 Initial lab(s) drawn, by me, sent to lab. Inserted saline lock: 18 gauge in left EJ, bp using aseptic technique. Blood collected. Administered Medications: No medications were administered Medication: 16:30 VIS not applicable for this client. jb4 Outcome: 16:55 Eloped from patient exam room, after seeing physician Time discovered patient gone: jb4 September 10, 2024 at 16:55 16:55 Condition: unchanged jb4 17:04 Patient left the ED. jb4 Signatures: Dispatcher [employer] EDMS Guzman Schwarz, RN RN jb4 Tiago Reyes RN RN Tiana Manzo MD MD sp3 Shanthi Corbin RN RN tm6 Dustin Castro sj2 Corrections: (The following items were deleted from the chart) 15:54 13:23 EKG done, by ED staff, reviewed by Tiana Galarza MD tm6 tm6 17:04 16:00 Eloped from patient exam room, after seeing physician Time discovered patient jb4 gone: September 10, 2024 at 16:55 jb4
--- NOTE | 2024-09-10 16:48 | EDPHYS ---
Physician Documentation [facility] Name: Nancie Ordonez Age: 53 yrs Sex: Female : 1970 Arrival Date: 09/10/2024 Time: 15:18 Bed 18 Private MD: ED Physician Tiana Galarza HPI: 09/10 15:56 This 53 yrs old Black Female presents to ER via Ambulatory with complaints of Breathing sp3 Difficulty, Chest Pain. 15:56 53-year-old female with history of hypertension, chronic pain, GERD, right shoulder sp3 arthritis presents to the ED referred by her PCP for right shoulder and anterior chest pain. Patient states she has had multiple injections in her right shoulder which she is currently set up to get more. She needed a referral to go to the orthopedist and PCP sent her here. Patient is having no left-sided chest pain and patient states that the pain she is having she feels is related to her shoulder. She denies any fever, headache, neck pain, left-sided chest pain, back pain, abdominal pain, syncope, near syncope, vomiting, diarrhea, rash, or any other signs or symptoms on ROS at this time. She denies any travel or prolonged immobilization or prior DVT or PE.. Historical: - Allergies: 15:51 Ibuprofen; tm6 15:51 Naproxen; tm6 - PMHx: 15:51 Arthritis; GERD; Gout; Hypertension; Pneumonia; Chronic pain; tm6 - PSHx: 15:51 section; hernia repair; Neck sx; Right arm injury; tm6 - Immunization history:: Flu vaccine is not up to date. - Infectious Disease History:: Denies. - Social history:: Smoking status: Patient denies any tobacco usage or history of. ROS: 15:57 Constitutional: Negative for fever, chills, and weight loss, Eyes: Negative for injury, sp3 pain, redness, and discharge, ENT: Negative for injury, pain, and discharge, Neck: Negative for injury, pain, and swelling, Cardiovascular: Negative for chest pain, palpitations, and edema, Respiratory: Negative for shortness of breath, cough, wheezing, and pleuritic chest pain, Abdomen/GI: Negative for abdominal pain, nausea, vomiting, diarrhea, and constipation, Back: Negative for injury and pain, Skin: Negative for injury, rash, and discoloration, Neuro: Negative for headache, weakness, numbness, tingling, and seizure, Psych: Negative for depression, anxiety, suicide ideation, homicidal ideation, and hallucinations, Allergy/Immunology: Negative for hives, rash, and allergies, Endocrine: Negative for neck swelling, polydipsia, polyuria, polyphagia, and marked weight changes, Hematologic/Lymphatic: Negative for swollen nodes, abnormal bleeding, and unusual bruising, 15:57 All other systems are negative, Exam: 15:58 Constitutional: This is a well developed, well nourished patient who is awake, alert, sp3 and in no acute distress. Head/Face: Normocephalic, atraumatic. Eyes: Pupils equal round and reactive to light, extra-ocular motions intact. Lids and lashes normal. Conjunctiva and sclera are non-icteric and not injected. Cornea within normal limits. Periorbital areas with no swelling, redness, or edema. Neck: Trachea midline, no thyromegaly or masses palpated, and no cervical lymphadenopathy. Supple, full range of motion without nuchal rigidity, or vertebral point tenderness. No Meningismus. Cardiovascular: Regular rate and rhythm with a normal S1 and S2. No gallops, murmurs, or rubs. Normal PMI, no JVD. No pulse deficits. Respiratory: Lungs have equal breath sounds bilaterally, clear to auscultation and percussion. No rales, rhonchi or wheezes noted. No increased work of breathing, no retractions or nasal flaring. Abdomen/GI: Soft, non-tender, with normal bowel sounds. No distension or tympany. No guarding or rebound. No evidence of tenderness throughout. Back: No spinal tenderness. No costovertebral tenderness. Full range of motion. Skin: Warm, dry with normal turgor. Normal color with no rashes, no lesions, and no evidence of cellulitis. Neuro: Awake and alert, GCS 15, oriented to person, place, time, and situation. Cranial nerves II-XII grossly intact. Motor strength 5/5 in all extremities. Sensory grossly intact. Cerebellar exam normal. Normal gait. Psych: Awake, alert, with orientation to person, place and time. Behavior, mood, and affect are within normal limits. 15:58 Musculoskeletal/extremity: Patient has pain on right shoulder on movement.. 15:58 ECG was reviewed by the Attending Physician. EKG demonstrates normal sinus rhythm at 92 sp3 bpm with normal intervals with QTc of 457, normal QRS, normal axis, T wave inversions inferolaterally nonspecific diffuse ST/T changes without evidence of acute ischemia. Vital Signs: 15:23 BP 156 / 99; Pulse 98; Resp 24; Temp 99(O); Pulse Ox 100% on R/A; MAP 118 mmHg; Weight tm6 89.36 kg; Height 5 ft. 3 in. ; Pain 10/10; 16:30 BP 149 / 87; Pulse 94; Resp 16; Pulse Ox 100% on R/A; jb4 15:23 Body Mass Index 34.90 (89.36 kg, 160.02 cm) tm6 15:23 Pain Scale: Adult tm6 MDM: 15:27 Medical Screening Exam initiated sp3 15:58 Data reviewed: vital signs, nurses notes, lab test result(s), EKG, radiologic studies. sp3 15:59 ED course: 53-year-old female with right shoulder and anterior chest pain related to sp3 the shoulder most likely. Differential diagnosis includes musculoskeletal shoulder and anterior chest pain, and to a lesser degree acute coronary syndrome or other process. Given EKG and history of chronic pain, I am not highly suspicious of this. Clinically I also do not believe patient has a PE, dissection, GI pathology or other potential etiology. Workup will include EKG, chest x-ray, general labs. Blood pressure 156/100 and I believe is high at baseline. Will defer to PCP for that management. If workup negative, we will safely discharge patient home.. 16:46 ED course: Patient eloped after we told her that narcotics were not indicated.. sp3 09/10 15:28 Order name: Basic Metabolic Panel sp3 09/10 15:28 Order name: CBC with Diff sp3 09/10 15:28 Order name: LFT's sp3 09/10 15:28 Order name: Magnesium sp3 09/10 15:28 Order name: NT PRO-BNP sp3 09/10 15:28 Order name: Troponin HS sp3 09/10 15:28 Order name: XRAY Chest (1 view); Complete Time: 16:34 sp3 09/10 15:28 Order name: EKG; Complete Time: 15:29 sp3 09/10 15:28 Order name: Cardiac monitoring; Complete Time: 15:54 sp3 09/10 15:28 Order name: EKG - Nurse/Tech; Complete Time: 15:54 sp3 09/10 15:28 Order name: IV Saline Lock; Complete Time: 16:57 sp3 09/10 15:28 Order name: Labs collected and sent; Complete Time: 16:57 sp3 09/10 15:28 Order name: O2 Per Protocol; Complete Time: 15:54 sp3 09/10 15:28 Order name: O2 Sat Monitoring; Complete Time: 15:54 sp3 Administered Medications: No medications were administered Disposition Summary: 09/10/24 16:47 Eloped Notes: Disposition: after being seen by provider sp3 Reason: other sp3 Condition: Stable sp3 Diagnosis - Right shoulder pain sp3 Followup: sp3 - With: Private Physician - When: Upon discharge from the Emergency Department - Reason: Recheck today's complaints Signatures: Dispatcher [employer] EDMS Tiana Galarza MD MD sp3 Shanthi Corbin RN RN tm6 Corrections: (The following items were deleted from the chart) 15:29 15:29 BASIC METABOLIC PANEL+C.LAB.BRZ ordered. EDMS EDMS 15:29 15:29 CBC+H.LAB.BRZ ordered. EDMS EDMS 15:29 15:29 HEPATIC FUNCTION+C.LAB.BRZ ordered. EDMS EDMS 15:29 15:29 MAGNESIUM+C.LAB.BRZ ordered. EDMS EDMS 15:29 15:29 PROBNP+C.LAB.BRZ ordered. EDMS EDMS 15:29 15:29 Troponin High Sensitivity+C.LAB.BRZ ordered. EDMS EDMS
[2024-09-10 17:12] LABS: Absolute Eosinophils 0.1 K/uL (0-0.5); Absolute Lymphocytes (CBC) 2.3 K/uL (0.7-4.9); Absolute Monocytes 0.4 K/uL (0.1-1.3); Absolute Neutrophil 2.4 K/uL (1.8-8.0); Basophils % 0.5 % (0-1.3); Eosinophils % 2.7 % (0-4.4); Hematocrit 39.1 % (36.0-45.0); Hemoglobin 12.8 g/dL (12.0-15.0); Lymphocytes % 44.1 % (15.3-44.8); MCH 27.2 pg (27.0-35.0); MCHC 32.8 g/dL (32.0-36.0); MCV 82.7 fL (80-100); Monocytes % 7.4 % (3.3-12.3); Neutrophils % 45.3 % (41.7-73.7); Nucleated RBC Absolute Count 0.1 (0-0); Nucleated Red Blood Cells % 1.3 % (0-0); RBC Red Blood Cell Count 4.72 M/uL (3.86-4.86); Red Cell Distribution Width 16.7 % (12.1-15.2)
[2024-09-10 17:25] LABS: Platelets 239 thou/uL (152-406)
[2024-09-10 17:26] LABS: ALT/SGPT 16 U/L (13-56); AST/SGOT 14 U/L (15-37); Albumin 3.6 g/dL (3.4-5.0); Alkaline Phosphatase 92 U/L (45-117); Anion Gap 8.7 mEq/L (5.0-15.0); BUN Blood Urea Nitrogen 9 mg/dL (7-18); Bicarbonate 24 mEq/L (21-32); Bilirubin Total 0.2 mg/dL (0.2-1.0); Globulin 3.6 g/dL (2.3-3.5); Glomerular Filtration Rate 71 ml/min (=/>90); Glucose Level 119 mg/dL (74-106); Magnesium 2.1 mg/dL (1.6-2.4); NT PRO-BNP 31 pg/mL (<125); Potassium 3.7 mEq/L (3.5-5.1); Protein, Total 7.2 g/dL (6.4-8.2); Sodium Level 138 mEq/L (136-145); Troponin High Sensitivity 6.7 pg/mL (<58.9)
[2024-09-10 17:28] VITALS: O2SAT 100
[2024-09-10 17:28] LABS: Bilirubin Direct < 0.2 mg/dL (0-0.2)
[2024-09-10 17:30] VITALS: BP 156/99; TEMP 99
--- NOTE | 2024-09-15 10:59 | EKG ---
Test Date: 2024-09-10 Test Time: 15:33:44 [place] Repairer: STEWART MEASUREMENT RESULTS: Intervals: Rate: 92 MD: 126 QRSD: 82 QT: 370 QTc: 457 [place]: P: 72 MD: 126 QRS: 64 T: 251 INTERPRETIVE STATEMENTS: Normal sinus rhythm Right atrial enlargement T wave abnormality, consider inferolateral ischemia Abnormal ECG Compared to ECG 07/03/2024 14:03:35 No significant changes Electronically Signed On 09-15-24 10:52:52 [employer] by Efrain Bentley
== END 2024-09-10 17:04 | disposition left against medical advice (07) ==
LOC: ER 15:18
DX: M25.511 Pain in right shoulder (principal)
CPT/HCPCS: 36415; 71045; 80048; 80076; 83735; 83880; 84484; 85025; 93005; 99284

== ENCOUNTER 2025-04-24 19:44 | Emergency (ER) | payer OTHER ==
[2025-04-24] MEDS ORDERED: HYDROCODONE/APAP 10/325 TAB ONE (20:07)
[2025-04-24 20:25] LABS: Sqamous Epithelial <5 /HPF (None Seen); Urine Culture Reflex Order NOT NEEDED; Urine Microscopic Reflex YN ORDER UMIC
--- OUTSIDE RECORDS SUMMARY | 2025-04-24 20:40 | XMS REPORT | Continuity of Care Document ---
Author Name Unknown Address [address] [facility] [address] [place] [address] [facility] Address [address] [facility]. [address] [place] [address] Care Team Providers Care Cable Engineer Name Role Phone NONE, NONE Primary Care Physician Unavailab Pedrito Burton Attending Clinician UnavailMauyri Rao MD Attending Clinician MAYURI RUSH Attending Clinician Unavailable Doctor Unassigned, Springer Attending Clinician U estela Rivera RN, Chad Duron Attending Clinician Unavail FLASH Spencer Attending Clinician Unavailab pato Brush MD, Maury Borja Attending Clinician Yris Dubose MD Attending Clinician [phone] Flash Kimball MD Attending Clinician [phone] UMM MANZANARES Attending Clinician Unavailable UMM MANZANARES Attending Clinician Unavailable Glenna YI, Umm Attending Clinician [phone] RAKESH, DR PORTILLO Attending Clinician Unavailable RAKESH, DR PORTILLO Attending Clinician Unavailable JIMY CAMERON Attending Clinician Unavailab JIMY Lewis Attending Clinician Unavailab MK العراقي Attending Clinician Unavailable MK HERNANDEZ Attending Clinician Unavailable Gabriel Garcia MD Attending Clinician [phone] Mayuri Rush MD Attending Clinician [phone] KAVITHA SHIPLEY Attending Clinician Unavailable Kavitha Lee Attending Clinician [phone] Doctor Unassigned, Springer Attending Clinician U estela AMEZQUITA, DR MURDOCK Attending Clinician Unavail able ALIRIO, DR MURDOCK Attending Clinician Unavail able JUDITH, DR MANAN Jamison Attending Clinician Unavaila vignesh WONG, DR MANAN Jamison Attending Clinician Unavaila vignesh LEGGETT, DR TANG Attending Clinician Unavaila vignesh MUNIZ, DR SESAY Attending Clinician Unavailable ROEN TOVAR Attending Clinician Unavailable Oren Tovar MD Attending Clinician [phone] ZELDA OLSEN Attending Clinician Unavailable Yuniel Mccray MD Attending Clinician [phone] Zelda Olsen MD Attending Clinician [phone] ANAYA KLINE Attending Clinician Unavailab Ced Suarze MD Attending Clinician [phone] Jaden Siddiqui ENP Attending Clinician [phone] DR LORAINE MELO Attending Clinician Unav giacomo VITAL, DR GONZALES Attending Clinician GABRIEL Vital Attending Clinician Unavailable WILMAR MADISON Attending Clinician Unavaila WILMAR Fragoso Attending Clinician Unavaila ble 1, [facility] Sleep Lab Bed Attending Clinician Unavail able Wilmar Madison MD Attending Clinician + [phone] Only, [facility] Test Attending Clinician Unavailable BRO ANN Attending Clinician Unavailable Seth YAPP, Bro Attending Clinician [phone] JADEN SIDDIQUI Attending Clinician Unavailable MAI DEL ROSARIO Attending Clinician Unavailab Mai Greco DO Attending Clinician [phone] JACKLYN GUILLEN Attending Clinician Unavailable Jacklyn Guillen MD Attending Clinician [phone] Una GRAJEDA, Marjan Holt Attending Clinician [phone] GELY HERNANDEZ Attending Clinician Unavailable Tasha YI, Gely Attending Clinician [phone] TEWILFRID JEAN-ABPTISTE Attending Clinician Unavailable Maury Brush MD Attending Clinician [phone] TeqwWilfrid blood DO Attending Clinician [phone] Edelmira Coleman Attending Clinician [phone] Evelin GRAJEDA, Any Fong Attending Clinician Unavail able Blanca Talavera MD Attending Clinician [phone] Josie YI, Samir Attending Clinician [phone] Faraz Parada MD Attending Clinician [phone] Flash Kimball MD Attending Clinician [phone] GABRIEL SHAIKH Attending Clinician Unavailable GABRIEL SHAIKH Attending Clinician Unavailable PATRICIA FRENCH Admitting Clinician Unavailable Pedrito Baez Admitting Clinician UnavailYRIS León Admitting Clinician Unavailable Yris Dubose MD Admitting Clinician [phone] LINDSEY CAMERON Admitting Clinician Unavailable GABRIEL GARCIA Admitting Clinician Unavailable MK HERNANDEZ Admitting Clinician Unavailable DR COLLETTE AMEZQUITA Admitting Clinician Unavail able DR MANAN WONG Admitting Clinician Unavaila DR CLYDE Pugh Admitting Clinician Unavaila DR LÁZARO Huerta Admitting Clinician Unavailable OREN TOVAR Admitting Clinician Unavailable ZELDA OLSEN Admitting Clinician Unavailable Zelda Olsen MD Admitting Clinician [phone] ANAYA KLINE Admitting Clinician Unavailab DR LORAINE Lugo Admitting Clinician DR CHRISTIAN Vasquez Admitting Clinician GABRIEL Vital Admitting Clinician Unavailable BRO ANN Admitting Clinician Unavailable JADEN SIDDIQUI Admitting Clinician Unavailable MAI DEL ROSARIO Admitting Clinician UnavailJACKLYN Argueta Admitting Clinician Unavailable GELY HERNANDEZ Admitting Clinician Unavailable Gely Hernandez MD Admitting Clinician TEQWIMUAH, WILFRID Admitting Clinician Unavailable Teqwimuah , Wilfrid Admitting Clinician [phone] FARAZ PARADA Admitting Clinician Unavailable Faraz Parada MD Admitting Clinician Payers Payer Name Policy Type Policy Number Effective Date Expirati on Date Source [employer] MED[employer]ARE ADVANTAGE HMO/POS [id number] 2024 00:00:00 0500 [id number] 1959 00:00:00 0450 [id number] 1959 00:00:00 0111 [id number] 2023 00:00:00 1014 [id number] 1959 00:00:00 Problems Condition Name Condition Details Condition Category Status Onset Date Resolution Date Last Treatment Date Treating Clinician Comments Source BARRON (obstructi ve sleep apnea) BARRON (obstructi ve sleep apnea) Disease Active 2-19 00:00: 00 [facility] Abnormal EKG Abnormal EKG Disease Active 01-15 00:00: 00 [facility] Preop cardiovasc ular exam Preop cardiovasc ular exam Disease Active 01-15 00:00: 00 [facility] Chest pain, unspecifie d type Chest pain, unspecifie d type Disease Active 3-05 00:00: 00 [facility] SOB (shortness of breath) SOB (shortness of breath) Disease Active 2021-09 0-23 00:00: 00 [facility] Chest pain Chest pain Disease Active 2021-09 0-22 00:00: 00 [facility] Transient alteration of awareness Transient alteration of awareness Disease Active 6-25 00:00: 00 [facility] Transient alteration of awareness Transient alteration of awareness Disease Active 6-25 00:00: 00 [facility] Gastric ulcer Gastric ulcer Disease Active 6-22 00:00: 00 [facility] Pneumonia Pneumonia Disease Active 4-04 00:00: 00 [facility] Acute asthma exacerbati on Acute asthma exacerbati on Disease Active 4-02 00:00: 00 [facility] Sepsis Sepsis Disease Active 3-09 00:00: 00 [facility] Morbid obesity with body mass index of 40.0-49.9 Morbid obesity with body mass index of 40.0-49.9 Disease Active 2-14 00:00: 00 [facility] Obesity (BMI 30-39.9) Obesity (BMI 30-39.9) Disease Active 2-12 00:00: 00 [facility] Acute hypoxemic respirator y failure Acute hypoxemic respirator y failure Disease Active 2-12 00:00: 00 [facility] 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 Disease Active 2-04 00:00: 00 [facility] Dyslipidem ia Dyslipidem ia Disease Active 2-04 00:00: 00 [facility] Gastro-eso phageal reflux disease with esophagiti s, with bleeding Gastro-eso phageal reflux disease with esophagiti s, with bleeding Disease Active 2-04 00:00: 00 [facility] Generalize d anxiety disorder Generalize d anxiety disorder Disease Active 2-04 00:00: 00 [facility] Pain of cervical spine Pain of cervical spine Disease Active 2-04 00:00: 00 [facility] Depo-Prove ra contracept lloyd status Depo-Prove ra contracept lloyd status Disease Active - 00:00: 00 [facility] Eczema Eczema Disease Active 04-15 00:00: 00 [facility] Essential hypertensi on Essential hypertensi on Disease Active 8- 00:00: 00 [facility] Back pain Back pain Disease Active 2-06 00:00: 00 [facility] Anorgasmia of female Anorgasmia of female Disease Resolve d 2016-09 0-06 00:00: 00 2018-10-31 00:00:00 2018-10-31 15:39:56 [facility] Allergies, Adverse Reactions, Alerts Allergy Name Allergy Type Status Severity Reaction(s) Onset Date Inactive Date Treating Clinician Comments Source NSAIDS (Non-Madan roidal Anti-Inf lamma DA Active U SWELLING OF THE TONGUE 6-05 00:00: 00 [facility] naproxen Propensi ty to adverse reaction to drug Active 7-29 00:00: 00 Dwayne Myers IBUPROFE N DRUG INGREDI Active Other-Cmnt 4-09 00:00: 00 [facility] Ibuprofe n Propensi ty to adverse reaction s Active Other - See comments 0 4-09 00:00: 00 ulcer [facility] IBUPROFE N-ACETAM INOPHEN DRUG Active SOB 2021-09 0-23 00:00: 00 [facility] Ibuprofe n-Acetam inophen Propensi ty to adverse reaction s Active Shortness of Breath 2021-09 0-23 00:00: 00 [facility] Naproxen - Oral Propensi ty to adverse reaction to drug Active 5-28 00:00: 00 Dwayne Myers SEAFOOD/ FISH Food Active High Anaphylaxis 0 4-02 00:00: 00 [facility] Seafood/ Fish Food Allergy Active Anaphylaxis 4-02 00:00: 00 Pts tongue swells/ difficult y breathing [facility] Nsaids (Non-Madan roidal Anti-Inf lammator y Drug) Propensi ty to adverse reaction s Active Unknown - See comments 2-12 00:00: 00 [facility] NSAIDS (NON-MADAN ROIDAL ANTI-INF LAMMATOR Y DRUG) Drug Class Active Unknown-Cmnt 10-15 00:00: 00 [facility] Nsaids (Non-Madan roidal Anti-Inf lammator y Drug) Propensi ty to adverse reaction s Active Unknown - See comments 10-15 00:00: 00 [facility] Nsaids (Non-Madan roidal Anti-Inf lammator y Drug) Propensi ty to adverse reaction s Active Unknown - See comments 10-15 00:00: 00 [facility] Naproxen Propensi ty to adverse reaction to drug Inactiv e 10-25 00:00: 00 Dwayne Niurka Louis naproxen DA Active SV 10-30 00:00: 00 [facility] naproxen DA Active SV TONGUE SWELLING 10-30 00:00: 00 [facility] Naproxen Drug Allergy Active Other - See comments 03-11 00:00: 00 Swelling of tongueSwe lling of the tongue [facility] Naproxen Propensi ty to adverse reaction s to drug Active Swelling 03-11 00:00: 00 Swelling of tongue [facility] NAPROXEN DRUG INGREDI Active High Swelling 03-11 00:00: 00 [facility] Ibuprofe n DA Active Unknown [facility] Social History Social Habit Start Date Stop Date Quantity Comments Source History SDOH Alcohol Std Drinks [facility] History SDOH Alcohol Binge [facility] History of Occupation [facility] History SDOH Alcohol Frequency [facility] Alcoholic beverage intake 2025-04-01 00:00:00 2025-04-01 00:00:00 Current drinker of alcohol (finding) [facility] Cigarettes smoked current (pack per day) - Reported 2024-10-22 00:00:00 2024-10-22 00:00:00 [facility] Cigarette pack-years 2024-10-22 00:00:00 2024-10-22 00:00:00 [facility] Tobacco use and exposure 2024-10-22 00:00:00 2024-10-22 00:00:00 Smokeless tobacco non-user [facility] History of Social function 2024-01-16 00:00:00 2024-01-16 00:00:00 [facility] Exposure to SARS-CoV-2 (event) 2022-11-30 00:00:00 2022-12-10 19:00:00 Not sure [facility] Tobacco Comment 2022-07-25 00:00:00 2022-07-25 00:00:00 30 years ago [facility] Alcohol intake 2021-11-10 00:00:00 2021-11-10 00:00:00 Current drinker of alcohol (finding) [facility] Education 2021-10-15 00:00:00 2021-10-15 00:00:00 12 [facility] Alcohol Comment 2016-12-14 00:00:00 2016-12-14 00:00:00 infrequent - family parties, wine, 12 oz/time [facility] History of tobacco use 1999 00:00:00 2001-12-14 00:00:00 Cigarette Smoker [facility] Sex assigned at 1970 00:00:00 1970 00:00:00 [facility] Smoking Status Start Date Stop Date Source Ex-smoker 2024-10-22 00:00:00 2024-10-22 00:00:00 [facility] Medications Ordered Medication Name Filled Medication Name Start Date Stop Date Current Medication? Ordering Clinician Indication Dosage Frequency Signature (SIG) Comments Components Source methocarbam oL 750 mg tablet 04-01 14:28: 59 Yes 750mg Take 1 tablet by mouth 4 times daily as needed. [facility] proMETHazin e 25 mg tablet 04-01 14:26: 32 Yes 25mg Take 1 tablet by mouth every 6 hours as needed for Nausea and Vomiting (N/V). [facility] oxyCODONE-a cetaminophe n 7.5-325 mg per tablet -30 14:26: 15 Yes 1{tbl} Take 1 tablet by mouth every 4 hours as needed. [facility] tiZANidine 4 mg tablet 03-31 00:00: 00 Yes 4mg Take 1 tablet by mouth 3 times daily as needed. [facility] amlodipine 10 mg tablet - 00:00: 00 Yes 1mg Dwayne Myers lisinopril 40 mg tablet - 00:00: 00 Yes 1mg Dwayne Myers hydrochloro thiazide 12.5 mg tablet - 00:00: 00 Yes 1mg Dwayne Myers promethazin e 25 mg tablet 6-09 00:00: 00 Yes 1mg Dwayne Myers fluconazole 150 mg tablet 01-21 00:00: 00 Yes 1mg Dwayne Myers Macrobid 100 mg capsule -18 00:00: 00 Yes 1mg Dwayne Myers hydrochloro thiazide 12.5 mg tablet 3- 00:00: 00 Yes 1mg Dwayne Myers hydrochloro thiazide 25 mg tablet 3-05 00:00: 00 Yes 1mg Dwayne Myers lisinopril 40 mg tablet 3- 00:00: 00 Yes 1mg Dwayne Myers promethazin e 25 mg tablet 3-05 00:00: 00 Yes 1mg Dwayne Myers HYDROcodone -acetaminop hen 10-325 mg tablet 09-12 18:26: 03 Yes 1{tbl} Take 1 tablet by mouth every 6 hours as needed for Pain (scale 7-10). [facility] triamcinolo ne acetonide (KENALOG) injection 40 mg 09-12 15:45: 00 09-12 23:01 :00 No 40mg 40 mg, Intra-cee cular, ONCE, 1 dose, On Sun09/12/24 at 0945, Routine [facility] bupivacaine (preserv free) (SENSORCAIN E MPF) 0.25 % (2.5 mg/mL) injection 10 mL 09-12 15:45: 00 09-12 23:01 :00 No 10mL 10 mL, Infiltrati on, ONCE, 1 dose, On Sun09/12/24 at 0945, Routine [facility] HYDROcodone -acetaminop hen (NORCO) 10-325 mg tablet 1 tablet 09-12 14:30: 32 09-13 00:26 :03 No 1{tbl} 1 tablet, Oral, Q6HPRN, Starting on Sun09/12/24 at 0830, Until Sun09/12/24 at 1826, Routine, pain scale 4-10, first line [facility] morpHINE (4 mg/mL) injection 4 mg 09-12 04:35: 05 09-13 00:26 :03 No 4mg 4 mg, Slow IV Push, Q4HPRN, Starting on Sun09/11/24 at 2235, Until Sun09/12/24 at 1826, Routine, Pain (scale 7-10) [facility] gabapentin 100 mg capsule 09-12 00:00: 00 Yes [id number] 100mg Take 1 capsule by mouth in the morning and 1 capsule in the evening. [facility] methocarbam oL 500 mg tablet 09-12 00:00: 00 10-13 05:59 :00 No [id number] 500mg Take 1 tablet by mouth 4 (four) times daily for 30 days. [facility] iopamidol (ISOVUE 370-500 mL) injection 80 mL 09-11 21:30: 00 09-11 20:35 :00 No [id number] 80mL 80 mL, Intravenou s, ONCE, 1 dose, On Sun09/11/24 at 1530, Routine [facility] gabapentin (NEURONTIN) capsule 300 mg 09-11 20:00: 00 09-13 00:26 :03 No 300mg 300 mg, Oral, TID, First dose on Sun09/11/24 at 1400, Until Discontinu ed, Routine [facility] methocarbam oL (ROBAXIN) tablet 500 mg 09-11 18:00: 00 Yes 500mg 500 mg, Oral, QID, First dose on Sun09/11/24 at 1200, Until Discontinu ed, Routine [facility] Lidocaine (LIDOCARE) 4 % patch 1 Patch 09-11 17:15: 00 09-12 05:18 :00 No 1{patch } 1 Patch, Topical, Administer over 12 Hours, ONCE, 1 dose, On Sun09/11/24 at 1115, Routine [facility] sulfur hexafluorid e microsphr (LUMASON) injection 5 mL 09-11 16:30: 00 09-11 14:25 :00 No [id number] 5mL 5 mL, Intravenou s, ONCE, 1 dose, On Sun09/11/24 at 1030, Routine [facility] lisinopriL (PRINIVIL,Z ESTRIL) tablet 40 mg 09-11 15:00: 00 09-13 00:26 :03 No 40mg 40 mg, Oral, DAILY, First dose on Sun09/11/24 at 0900, Until Discontinu ed [facility] docusate (COLACE) capsule 100 mg 09-11 15:00: 00 09-13 00:26 :03 No 100mg 100 mg, Oral, DAILY, First dose on Sun09/11/24 at 0900, Until Discontinu ed, Routine [facility] heparin (porcine) injection 5,000 Units 09-11 14:00: 00 09-13 00:26 :03 No 5000U 5,000 Units, Subcutaneo us, Q12H, First dose on Sun09/11/24 at 0800, Until Discontinu ed, Routine [facility] carvediloL (COREG) tablet 25 mg 09-11 14:00: 00 09-13 00:26 :03 No 25mg 25 mg, Oral, BID MEALS, First dose on Sun09/11/24 at 0800, Until Discontinu ed, Routine [facility] cefTRIAXone (ROCEPHIN) 1,000 mg in water for injection, sterile 10 mL IV Push 09-11 07:45: 00 09-13 00:26 :03 No 1000mg 1,000 mg, Intravenou s, Q24H ABX, 7 doses, First dose on Sun09/11/24 at 0145, Last dose on Sun09/17/24 at 0145, 10 mL, Reason for Anti-Infec tive: Documented Infection, Documented Infection Site: Urine, Duration of Therapy: 7 days [facility] NaCl 0.9% (NS) bolus infusion 1,000 mL 09-11 05:45: 00 09-11 05:16 :00 No 1000mL at 999 mL/hr, 1,000 mL, IV Infusion, ONCE, 1 dose, On Sun09/10/24 at 2345, [facility] acetaminoph en-codeine (TYLENOL #4) 300-60 mg tablet 1 tablet 09-11 04:51: 18 09-12 04:35 :24 No 1{tbl} 1 tablet, Oral, Q6HPRN, Starting on Sun09/10/24 at 2251, Until Sun09/11/24 at 2235, Routine, Pain (scale 4-6) [facility] albuterol (VENTOLIN) inhaler 2 Puff 09-11 04:48: 40 09-13 00:26 :03 No 2{puff} [facility] HYDROcodone -acetaminop hen (NORCO 5) tablet 1 tablet 09-11 04:30: 00 09-11 04:23 :00 No 1{tbl} 1 tablet, Oral, ONCE, 1 dose, On Sun09/10/24 at 2230, [facility] morpHINE (4 mg/mL) injection 4 mg 09-11 04:29: 15 09-12 04:28 :15 No 4mg 4 mg, Slow IV Push, Q4HPRN, Starting on Sun09/10/24 at 2229, Until Sun09/11/24 at 2228, Routine, Pain (scale 7-10) [facility] ondansetron (ZOFRAN (PF)) injection 4 mg 09-11 04:19: 09-13 00:26 :03 No 4mg 4 mg, Slow IV Push, Q6HPRN, Starting on Sun09/10/24 at 2219, Until Sun09/12/24 at 1826, 2 mL [facility] acetaminoph en (TYLENOL) tablet 650 mg 09-11 04:19: 23 09-13 00:26 :03 No 650mg 650 mg, Oral, Q6HPRN, Starting on Sun09/10/24 at 2219, Until Sun09/12/24 at 1826, Routine, Pain (scale 1-3) [facility] hydralAZINE (APRESOLINE ) injection 10 mg 09-11 04:19: 09-13 00:26 :03 No 10mg 10 mg, Slow IV Push, Q4HPRN, Starting on Sun09/10/24 at 2219, Until Sun09/12/24 at 1826, Routine, DBP=>100; SBP=>160 [facility] melatonin (MELATIN) tablet 3 mg 09-11 04:19: 19 09-13 00:26 :03 No 3mg 3 mg, Oral, QHSPRN, Starting on Sun09/10/24 at 2219, Until Sun09/12/24 at 1826, Routine, Insomnia [facility] NaCl 0.9% (NS) bolus infusion 1,000 mL 09-11 03:15: 00 09-11 03:00 :00 No 1000mL at 999 mL/hr, 1,000 mL, IV Infusion, ONCE, 1 dose, On Sun09/10/24 at 2115, SE [facility] iopamidol (ISOVUE 370-500 mL) injection 80 mL 09-11 03:10: 00 09-11 03:10 :00 No [id number] 80mL 80 mL, Intravenou s, ONCE, 1 dose, On Sun09/10/24 at 2115, Routine [facility] amlodipine 10 mg tablet 2023-09 2- 00:00: 00 Yes 1mg Dwayne yMers amLODIPine 10 mg tablet 2023-09 210 00:00: 00 Yes 10mg Take 1 tablet by mouth every morning. [facility] morpHINE (4 mg/mL) injection 4 mg 2023-09 05:15: 00 07-08 05:07 :00 No 4mg 4 mg, Slow IV Push, ONCE, 1 dose, On Sun07/07/24 at 2315, STAT [facility] HYDROcodone -acetaminop hen (NORCO 5) tablet 2 tablet 2023-09 03:15: 00 07-08 03:29 :00 No 2{tbl} 2 tablet, Oral, ONCE, 1 dose, On Sun07/07/24 at 2115, Routine [facility] labetaloL (NORMODYNE) 5 mg/mL injection 20 mg 2023-09 01:45: 00 07-08 03:31 :00 No 20mg 20 mg, Slow IV Push, ONCE, 1 dose, On Sun07/07/24 at 1945, SE [facility] metoclopram luz HCl (REGLAN) injection 10 mg 2023-09 01:45: 00 07-08 02:29 :00 No 10mg 10 mg, Slow IV Push, ONCE, 1 dose, On Sun07/07/24 at 1945, SE [facility] amlodipine 10 mg tablet 2023-09 00:00: 00 Yes 1mg Dwayne Myers Premarin 1.25 mg tablet 2023-09 0 00:00: 00 Yes mg Dwayne Myers lisinopril 40 mg tablet 2023-09 0-24 00:00: 00 Yes 1mg Dwayne Myers ondansetron 4 mg disintegrat ing tablet 07 00:00: 00 Yes 1mg Dwayne Myers triamcinolo ne acetonide 0.1 % topical cream 05-01 00:00: 00 Yes 1% Dwayne Niurka Louis fluconazole 150 mg tablet 2024-0 8-14 00:00: 00 Yes mg Dwayne Myers ondansetron 8 mg disintegrat ing tablet 03-31 00:00: 00 Yes 1mg Dwayne Myers dexamethaso ne (DECADRON PHOSPHATE) injection 10 mg 03-23 01:00: 00 03-23 00:52 :00 No 10mg 10 mg, Slow IV Push, ONCE, 1 dose, On 03/22/24 at 2000, Routine [facility] cefTRIAXone (ROCEPHIN) 1,000 mg in NaCl 0.9% (NS) 100 mL MINI-BAG 03-23 00:15: 00 03-23 01:38 :00 No 1000mg 1,000 mg, IV Piggyback, ONCE, 1 dose, On 03/22/24 at 1915, Administer over 30 Minutes, 100 mL, Reason for Anti-Infec tive: Documented Infection, Documented Infection Site: Urine, Duration of Therapy: Once (ED) [facility] HYDROcodone -acetaminop hen (NORCO 5) 5-325 mg tablet 1 tablet 03-23 00:00: 00 03-23 00:51 :00 No 1{tbl} 1 tablet, Oral, ONCE, 1 dose, On [facility] 03/22/24 at 1900, [facility] metoclopram luz HCl (REGLAN) injection 10 mg 03-22 23:45: 00 03-22 23:09 :00 No 10mg 10 mg, Slow IV Push, ONCE, 1 dose, On 03/22/24 at 1845, [facility] NaCl 0.9% (NS) bolus infusion 1,000 mL 03-22 23:30: 00 03-23 00:53 :00 No 1000mL at 999 mL/hr, 1,000 mL, IV Infusion, ONCE, 1 dose, On 03/22/24 at 1830, [facility] diphenhydrA MINE (BENADRYL) injection 25 mg 03-22 22:45: 00 03-22 23:07 :00 No 25mg 25 mg, Slow IV Push, ONCE, 1 dose, On 03/22/24 at 1745, STAT [facility] acetaminoph en (TYLENOL) tablet 1,000 mg 03-22 12:15: 00 03-22 13:04 :00 No 1000mg 1,000 mg, Oral, ONCE, 1 dose, On 03/22/24 at 0715, SE [facility] cephALEXin (KEFLEX) capsule 500 mg 03-22 12:00: 00 03-22 12:55 :00 No 500mg 500 mg, Oral, ONCE, 1 dose, On 03/22/24 at 0700, SE, Reason for Anti-Infec tive: Empiric Therapy for Suspected Infection, Empiric Therapy Site: HEENT, Duration of therapy: Once (ED) [facility] hydrOXYzine (ATARAX) tablet 25 mg 03-22 12:00: 00 03-22 12:55 :00 No 25mg 25 mg, Oral, ONCE, 1 dose, On 03/22/24 at 0700, SE [facility] acetaminoph en (TYLENOL ARTHRITIS PAIN) 650 mg CR tablet 03-22 00:00: 00 Yes [id number] 650mg Take 1 tablet by mouth every 8 (eight) hours as needed for Pain or Fever. [facility] Dextrometho rphan-Guaif enesin (ROBITUSSIN COUGH-CHEST YONG DM) 10-200 mg Cap 03-22 00:00: 00 Yes [id number] 1{capsu le} Take 1 capsule by mouth 3 (three) times daily as needed for Cough (Congestio n). [facility] loratadine 10 mg tablet 03-22 00:00: 00 Yes [id number] 10mg Take 1 tablet by mouth in the morning. [facility] vitamin C with ruy hips (VITAMIN C) 1,000 mg tablet 03-22 00:00: 00 Yes [id number] 1000mg Take 1 tablet by mouth in the morning. [facility] B Complex Vitamins tablet 03-22 00:00: 00 Yes [id number] 1{tbl} Take 1 tablet by mouth in the morning. [facility] ondansetron 4 mg tablet 03-22 00:00: 00 Yes [id number] 4mg Take 1 tablet by mouth every 8 (eight) hours as needed for Nausea and Vomiting (N/V). [facility] triamcinolo ne 0.5 % cream 03-22 00:00: 00 Yes [id number] Apply to area(s) 3 (three) times daily. [facility] [facility] molnupiravi [facility] 200 mg capsule 03-22 00:00: 00 Yes [id number] 800mg Take 4 capsules by mouth every 12 (twelve) hours. [facility] butalbital- acetaminoph en-caff 50-325-40 mg tablet 03-22 00:00: 00 Yes [id number] 1{tbl} Take 1 tablet by mouth every 4 (four) hours as needed for Pain (scale 4-6). [facility] albuterol 90 mcg/actuati on inhaler 03-22 00:00: 00 Yes [id number] 2{puff} Inhale 2 Puffs every 4 (four) hours as needed for Wheezing or Shortness of Breath. [facility] cefdinir 300 mg capsule 03-22 00:00: 00 Yes [id number] 300mg Take 1 capsule by mouth in the morning and 1 capsule in the evening. [facility] hydrOXYzine 25 mg tablet 01-15 09:33: 25 Yes 25mg Take 1 tablet by mouth once now. [facility] acetaminoph en-codeine (TYLENOL-CO DEINE #4) 300-60 mg tablet 01-15 09:33: 25 Yes 1{tbl} Take 1 tablet by mouth every 4 hours as needed for Pain. [facility] celecoxib (CELEBREX) 50 mg capsule 01-15 09:33: 25 Yes 50mg Take 1 capsule by mouth in the morning. [facility] oxyCODONE-a cetaminophe n 5-325 mg per tablet 01-15 09:33: 25 Yes every 4 (four) hours as needed. [facility] PREMARIN 1.25 mg tablet 01-15 09:33: 25 Yes 1.25mg Take 1 tablet by mouth in the morning. [facility] carvediloL 25 mg tablet 01-15 09:33: 25 Yes 25mg Take 1 tablet in the morning and 1 tablet in the evening. Take with meals. [facility] gabapentin 100 mg capsule 01-15 09:33: 25 - 00:00 :00 No 100mg Take 1 capsule by mouth in the morning and 1 capsule in the evening. [facility] lisinopriL 40 mg tablet 01-15 09:30: 05 Yes 40mg Take 1 tablet by mouth in the morning. [facility] CYCLOBENZAP RINE HCL 10 MG TABS 01-14 00:00: 00 Yes Dwayne Myers XARELTO 10 MG TABS 2023-0 01-14 00:00: 00 Yes Dwayne Myers HYDROCO/APA P 5-325MG 0 01-14 00:00: 00 Yes Dwayne Myers XARELTO 10 mg tablet 01-14 00:00: 00 Yes 10mg Take 1 tablet by mouth in the morning. [facility] docusate (COLACE) 100 mg capsule 01-14 00:00: 00 Yes daily. [facility] nitrofurant oin macrocrysta l 100 mg capsule 08 00:00: 00 Yes 1mg Dwayne Myers lisinopril 40 mg tablet 0 01-02 00:00: 00 Yes 1mg Dwayne Myers melatonin 10 mg tablet 0 01-02 00:00: 00 Yes 1mg Dwayne Myers lisinopril 40 mg tablet 0 12-30 00:00: 00 Yes 1mg Dwayne Myers PREDNISONE 20 MG TABS 2023-0 -24 00:00: 00 Yes Dwayne Myers OXYCOD/APAP 5-325MG 0 4-12 00:00: 00 Yes Dwayne Myers Premarin 1.25 mg tablet 0 4-08 00:00: 00 Yes mg Dwayne Myers lisinopril 30 mg tablet 0 4-08 00:00: 00 Yes 1mg Dwayne Myers NORTRIPTYLI NE HCL 25 MG 0 3-22 00:00: 00 Yes Dwayne Myers CELECOXIB 200 MG 0 3-22 00:00: 00 Yes Dwayne Myers TAKE 1 TABLET BY MOUTH EVERY 8 HOURS NEEDED 0 -22 00:00: 00 Yes Dwayne Myers TAKE 1 TABLET BY MOUTH DAILY 0 -22 00:00: 00 Yes 500 Dwayne Myers TAKE 1 TABLET BY MOUTH EVERY 8 HOURS NEEDED 0 2-28 00:00: 00 Yes Dwayne Myers TAKE 1 TABLET BY MOUTH EVERY 8 HOURS NEEDED 0 -30 00:00: 00 Yes Dwayne Myers TAKE 1 TABLET BY MOUTH EVERY DAY 0 -30 00:00: 00 Yes Dwayne Myers TAKE 1 CAPSULE BY MOUTH EVERY 8 HOURS. 0 -30 00:00: 00 Yes Dwayne Myers ALPRAZOLAM 0.5 MG TABS 0 - 00:00: 00 Yes Dwayne Myers TAKE 1/2 TO 1 TABLET BY MOUTH DAILY AT BEDTIME NEEDED 0 -27 00:00: 00 Yes Dwayne Myers TAKE 1 TABLET DAILY. - 00:00: 00 Yes 20 Dwayne Myers TAKE 1 TABLET EVERY 12 HOURS DAILY. 0 09-25 00:00: 00 01-15 00:00 :00 No 1 Dwayne Myers ONE TABLET ORALLY Q 8 HOURS PRN 0 - 00:00: 00 01-15 00:00 :00 No 8 Dwayne Myers TAKE 1 TABLET BY MOUTH EVERY 8 HOURS NEEDED 0 - 00:00: 00 Yes Dwayne Myers TAKE 1 TABLET BY MOUTH EVERY DAY 0 - 00:00: 00 Yes Dwayne Myers ONDANSETRON 4 MG TBDP 0 - 00:00: 00 Yes Dwayne Myers METHOCARBAM [...] TABLET BY MOUTH EVERY DAY NEEDED 2022-09 2- 00:00: 00 Yes Dwayne Myers PREMPRO 0.625-5 2022-09 2-18 00:00: 00 Yes Dwayne Myers FAMOTIDINE 40MG 2022-09 2- 00:00: 00 Yes [id number] Dwayne Myers TAKE 1 TABLET DAILY. 2022-09 2- 00:00: 00 01-15 00:00 :00 No [id number] Dwayne Myers ARIPIPRAZOL E 5MG 2022-09 2- 00:00: 00 Yes 5 Dwayne Myers OXYCOD/APAP 5-325MG 2022-09 2- 00:00: 00 Yes Dwayne Myers PREMPRO .625-2.5 2022-09- 00:00: 00 Yes Dwayne Myers GABAPENTIN 300MG 2022-09- 00:00: 00 Yes Dwayne Myers ZOLPIDEM 10MG 2022-09- 00:00: 00 Yes Dwayne Myers TAKE 1 CAPSULE BY MOUTH EVERYDAY AT BEDTIME 2022-09- 00:00: 00 Yes Dwayne Myers TAKE 1 TABLET BY MOUTH EVERY DAY 2022-09- 00:00: 00 Yes Dwayne Myers ALPRAZOLAM 0.5MG 2022-09- 00:00: 00 Yes 500 Dwayne Myers TAKE 1 TABLET BY MOUTH EVERY 8 HOURS NEEDED...DU E 12-3 2022-09- 00:00: 00 Yes Dwayne Myers TAKE 1 TABLET DAILY. 2022-09- 00:00: 00 01-15 00:00 :00 No [id number] Dwayne Myers METHOCARBAM 500MG 2022-09 1-26 00:00: 00 Yes [id number] Dwayne Myers TAKE 1 TABLET DAILY. 2022-09- 00:00: 00 01-15 00:00 :00 No 20 Dwayne Myers TAKE 1 TABLET DAILY. 2022-09 1-07 00:00: 00 01-15 00:00 :00 No 20 Dwayne Myers OXYCOD/APAP 5-325MG 2022-09 1-04 00:00: 00 Yes Dwayne Myers ADMINISTER 1 SPRAY INTO ONE NOSTRIL. CALL 911. REPEAT AFTER 2-3 MIN IF NO OR MINIMAL RESPONSE 2022-09 0-30 00:00: 00 Yes Dwayne Myers METHOCARBAM 500MG 2022-09 0-30 00:00: 00 Yes Dwayne yMers TAKE 1 CAPSULE BY MOUTH EVERYDAY AT BEDTIME 2022-09 0-30 00:00: 00 Yes Dwayne Myers ZOLPIDEM 10MG 2022-09 0-27 00:00: 00 Yes [id number] Dwayne Myers ALPRAZOLAM 0.5MG 2022-09 0-24 00:00: [...] FUROSEMIDE 40MG 2022-09 0-09 00:00: 00 Yes [id number] Dwayne Myers OXYCOD/APAP 7.5-325 2022-09 0-05 00:00: 00 Yes Dwayne Myers PREDNISONE 50MG 2022-09 0-02 00:00: 00 Yes Dwayne Myers BUT/APAP/CA F 300MG 1 0-02 00:00: 00 Yes Dwayne Myers CARISOPRODO L 350MG 2022-09 0-02 00:00: 00 Yes Dwayne Myers CELECOXIB 200MG 1 0-02 00:00: 00 Yes Dwayne Myers AMLODIPINE 5MG [...] No Dwayne Myers NIFEDIPIN CC 60MG ER 2022-0 - 00:00: 00 Yes Dwyane Myers CARVEDILOL 25MG 2022-0 -28 00:00: 00 Yes Dwayne Myers ATORVASTATI N 40MG 2022-0 - 00:00: 00 Yes Dwayne Myers TAKE 1 TABLET BY MOUTH TWICE A DAY 2022-0 - 00:00: 00 Yes Dwayne Myers DULOXETINE 30MG DR 2022-0 -20 00:00: 00 Yes Dwayne Myers TAKE 1 TABLET BY MOUTH EVERY DAY NEEDED 2022-0 - 00:00: 00 Yes Dwayne Myers TAKE 1/2 TO 1 TABLET BY MOUTH DAILY AT BEDTIME NEEDED 2022-0 -20 00:00: 00 Yes Dwayne Myers FAMOTIDINE 40MG 2022-0 -18 00:00: 00 Yes Dwayne Myers ARIPIPRAZOL E 5MG 2022-0 9-12 00:00: 00 Yes Dwayne Myers BACLOFEN 10MG 2022-0 9-09 00:00: 00 Yes Dwayne Myers OXYCOD/APAP 5-325MG 0 9-05 00:00: 00 Yes Dwayne Myers TAKE 1 CAPSULE BY MOUTH EVERY 8 HOURS 0 9-05 00:00: 00 Yes Dwayne Myers TAKE 1 TABLET BY MOUTH EVERY 12 HOURS 0 9-05 00:00: 00 Yes Dwayne Myers CARISOPRODO L 350MG 0 9- 00:00: 00 Yes Dwayne Myers METHYLPRED 4MG DPAK 05-05 00:00: 00 Yes Dwayne Myers APAP/CODEIN E 300-30MG 05-05 00:00: 00 Yes Dwayne Myers PAROXETINE 10MG HCL 05-04 00:00: 00 Yes Dwayne Myers TAKE DIRECTED INSIDE THE PACKAGE 05-04 00:00: 00 Yes Dwayne Myers TAKE 1 TABLET BY MOUTH EVERY 6 HOURS NEEDED FOR MUSCLE SPAM 05-04 00:00: 00 Yes Dwayne Myers TAKE 1-2 TABLETS BY MOUTH EVERY 6 HOURS NEEDED ACUTE PAIN 05-04 00:00: 00 Yes Dwayne Myers TAKE 1 TABLET DAILY. 8-31 00:00: 00 01-15 00:00 :00 No 50 Dwayne Myers ZOLPIDEM 10MG 8-30 00:00: 00 Yes Dwayne Myers TAKE [...] 00:00: 00 Yes Dwayne Myers CEFDINIR 300MG 0 8-13 00:00: 00 Yes Dwayne Myers TAKE 1 CAPSULE BY MOUTH EVERY 12 HOURS FOR 7 DAYS 0 8-12 00:00: 00 Yes Dwayne Myers CELECOXIB 200MG 2023-0 8-09 00:00: 00 Yes Dwayne Myers OXYCOD/APAP 5-325MG 2023-0 8-08 00:00: 00 Yes Dwayne Myers TAKE 1 TABLET BY MOUTH EVERY 12 HOURS 2023-0 8-08 00:00: 00 Yes Dwayne Myers BACLOFEN 10MG 2023-0 8-07 00:00: 00 Yes [id number] Dwayne Myers GABAPENTIN 300MG 3-0 8-05 00:00: 00 Yes [id number] Dwayne Myers ALPRAZOLAM 0.5MG 3-0 7-31 00:00: [...] TAKE 1/2 TABLET BY MOUTH DAILY 3-0 6-29 00:00: 00 Yes Dwayne Myers FAMOTIDINE 40MG 2023-0 6-22 00:00: 00 Yes Dwayne Myers PREDNISONE 5MG 2023-0 6-22 00:00: 00 Yes 5000 Dwayne Myers APAP/CODEIN E #4 0 -22 00:00: 00 Yes Dwayne Myers CARVEDILOL 25MG 0 -20 00:00: 00 Yes Dwayne Myers NIFEDIPIN CC 60MG ER 0 -20 00:00: 00 Yes Dwayne Myers CELECOXIB 200MG 2022-0 -16 00:00: 00 Yes Dwayne Myers BACLOFEN 10MG 2022-0 - 00:00: 00 Yes [id number] Dwayne Myers TAKE 1 TABLET BY MOUTH EVERY 8 HOURS NEEDED FOR PAIN 0 02-13 00:00: 00 Yes Dwayne Myers TAKE 1 CAPSULE BY MOUTH EVERY DAY 0 02-13 00:00: 00 Yes Dwayne Myers GABAPENTIN 300MG 0 02-12 00:00: 00 Yes Dwayne Myers PREMARIN VAG CRE 0 02-05 00:00: 00 Yes Dwayne Myers INSERT 0.5 GRAM INTRAVAGINA LLY DAILY. ( 3 WEEKS ON. 1 WEEK OFF ). 0 - 00:00: 00 01-15 00:00 :00 No 625 Dwayne Myers TAKE 1 TABLET EVERY MORNING. 0 02-04 00:00: 00 01-15 00:00 :00 No 10 Dwayne Myers ARIPIPRAZOL E 5MG 0 02-03 00:00: 00 Yes 5000 Dwayne Myers APAP/CODEIN E #4 0 23 00:00: 00 Yes Dwayne Myers TAKE 1 CAPSULE BY MOUTH EVERY 8 HOURS 0 23 00:00: 00 Yes Dwayne Myers BACLOFEN 10MG 0 -17 00:00: 00 Yes [id number] Dwayne Myesr TAKE 1 CAPSULE BY MOUTH EVERY 8 HOURS 2022-0 -17 00:00: 00 Yes Dwayne Myers TAKE 1 CAPSULE BY MOUTH EVERY DAY 0 17 00:00: 00 Yes Dwayne Myers PREDNISONE 5MG 2022-0 -08 00:00: 00 Yes 5000 Dwayne Myers LISINOPRIL 20MG 2022-0 -07 00:00: 00 01-15 00:00 :00 No [id number] Dwayne Myers TAKE 1 TABLET BY MOUTH EVERY 12 HOURS NEEDED FOR PAIN 0 01-02 00:00: 00 Yes Dwayne Myers TAKE 1 TABLET EVERY MORNING. 0 - 00:00: 00 01-15 00:00 :00 No 10 Dwayne Myers ALPRAZOLAM 0.5MG 2022-0 - 00:00: 00 Yes 500 Dwayne Myers DULOXETINE 20MG DR 0 12-27 00:00: 00 Yes Dwayne Myers TAKE 1 TABLET BY MOUTH EVERYDAY AT BEDTIME 2022-0 12-27 00:00: 00 Yes Dwayne Myers ARIPIPRAZOL E 5MG 0 12-27 00:00: 00 Yes 5000 Dwayne Myers TAKE 1 TABLET BY MOUTH EVERY 8 HOURS 2022-0 25 00:00: 00 Yes Dwayne Myers BACLOFEN 10MG 0 -23 00:00: 00 Yes [id number] Dwayne Myers TAKE 1 TABLET BY MOUTH EVERY DAY FOR 90 DAYS 0 -21 00:00: 00 Yes Dwayne Myers LISINOPRIL 40MG 2022-0 -21 00:00: 00 Yes Dwayne Myers TAKE 1 TABLET BY MOUTH TWICE A DAY WITH FOOD FOR 90 DAYS 0 -21 00:00: 00 Yes Dwayne Myers SPIRONOLACT 50MG 0 -17 00:00: 00 Yes [id number] Dwayne Myers PREDNISONE 10MG 2022-0 -16 00:00: 00 Yes [id number] Dwayne Myers TAKE 1 TABLET BY MOUTH EVERY 8 HOURS 2022-0 -14 00:00: 00 Yes Dwayne Myers TAKE 1 TABLET BY MOUTH EVERY 12 HOURS 2022-0 -14 00:00: 00 Yes Dwayne Myers ONDANSETRON 4MG 2022-0 4-14 00:00: 00 Yes 4000 Dwayne Myers TAKE 1 CAPSULE BY MOUTH EVERY DAY 2022-0 -14 00:00: 00 Yes Dwayne Myers ondansetron (ZOFRAN-ODT ) disintegrat ing tablet 4 mg 2022-0 4-10 02:30: 00 04-10 01:43 :00 No 4mg 4 mg, Oral, ONCE, 1 dose, On 12/10/22 at 2130, [facility] predniSONE (DELTASONE) tablet 40 mg 12-11 01:45: 00 12-11 01:43 :00 No 40mg 40 mg, Oral, ONCE, 1 dose, On 12/10/22 at 2045, [facility] HYDROcodone -acetaminop hen (NORCO 5) 5-325 mg tablet 1 tablet 12-11 01:45: 00 12-11 01:43 :00 No 1{tbl} 1 tablet, Oral, ONCE, 1 dose, On 12/10/22 at 2044, [facility] PREDNISONE 20MG 12-11 00:00: 00 Yes Dwayne Myers ONDANSETRON 4MG ODT 12-11 00:00: 00 Yes 4000 Dwayne Myers SPIRONOLACT 25MG 12-11 00:00: 00 Yes [id number] Dwayne Myers TAKE 2 TABLETS BY MOUTH EVERY MORNING FOR 5 DAYS 12-10 00:00: 00 Yes Dwayne Myers DISSOLVE 1 TABLET ON OR UNDER TONGUE EVERY 4 HOURS NEEDED FOR NAUSEA AND VOMITING 12-10 00:00: 00 Yes Dwayne Myers ondansetron 4 mg disintegrat ing tablet 12-10 00:00: 00 Yes [id number] 4mg Take 1 tablet by mouth every 4 (four) hours as needed for Nausea and Vomiting (N/V). [facility] predniSONE 20 mg tablet 12-10 00:00: 00 12-16 04:59 :00 No [id number] 40mg Take 2 tablets by mouth in the morning for 5 days. [facility] PREDNISONE 5MG 12-04 00:00: 00 Yes 5000 Dwayne Myers TAKE 1 CAPSULE BY MOUTH EVERY DAY 11-28 00:00: 00 Yes Dwayne Myers TAKE 1 EVERY 8 HOURS 11-28 00:00: 00 Yes Dwayne Myers GABAPENTIN 300MG 11-28 00:00: 00 Yes [id number] Dwayne Myers DICLOFEN SOD 100MG ER 11-24 00:00: 00 Yes [id number] Dwayne Myers ALPRAZOLAM 0.5MG 11-23 00:00: 00 [...] Myers PREDNISONE 10MG 11-18 00:00: 00 Yes [id number] Dwayne Myers PANTOPRAZOL E 40MG DR 11-08 00:00: 00 Yes Dwayne Myers 1 TABLET(S) EVENING ORAL 11-08 00:00: 00 Yes Dwayne Myers PREDNISONE 5MG 11-06 00:00: 00 Yes Dwayne Myers FUROSEMIDE 20MG 11-06 00:00: 00 Yes Dwayne Myers carvediloL (COREG) tablet 3.125 mg 11-05 23:00: 00 Yes 3.125mg 3.125 mg, Oral, BID MEALS, First dose on 11/05/22 at 1700, Until Discontinu ed, Routine [facility] enoxaparin (LOVENOX) injection 40 mg 11-05 23:00: 00 Yes 40mg 40 mg, Subcutaneo us, DAILY, First dose on 11/05/22 at 1700, Until Discontinu ed, Routine [facility] hydrOXYzine 25 mg tablet 11-05 17:13: 13 Yes 25mg Take 1 tablet by mouth. [facility] lisinopriL 20 mg tablet 11-05 17:13: 13 Yes 20mg Take 1 tablet by mouth in the morning. [facility] gabapentin 100 mg capsule 11-05 17:13: 13 Yes 100mg Take 1 capsule by mouth in the morning and 1 capsule in the evening. [facility] acetaminoph en-codeine (TYLENOL-CO DEINE #4) 300-60 mg tablet 11-05 17:13: 13 Yes 1{tbl} Take 1 tablet by mouth every 4 (four) hours as needed for Pain. [facility] celecoxib (CELEBREX) 50 mg capsule 11-05 17:13: 13 Yes 50mg Take 1 capsule by mouth in the morning. [facility] amLODIPine (NORVASC) tablet 10 mg 11-05 15:00: 00 Yes 10mg 10 mg, Oral, DAILY, First dose on Sun11/05/22 at 0900, Until Discontinu ed, Routine [facility] metoprolol tartrate (LOPRESSOR) tablet 25 mg 11-05 14:00: 00 11-05 17:41 :07 No 25mg 25 mg, Oral, TID, First dose on Sun11/05/22 at 0800, Until Discontinu ed, Routine [facility] traMADoL (ULTRAM) tablet 50 mg 11-05 13:36: 11 11-07 13:35 :11 No 50mg 50 mg, Oral, Q6HPRN, Starting on Sun11/05/22 at 0736, Until Sun11/07/22 at 0735, Routine, Pain (scale 7-10) [facility] ondansetron (ZOFRAN (PF)) injection 4 mg 11-05 13:35: 52 11-07 13:34 :52 No 4mg 4 mg, Slow IV Push, Q6HPRN, Starting on Sun11/05/22 at 0735, Until Sun11/07/22 at 0734, Routine, Nausea and Vomiting (N/V) [facility] acetaminoph en (TYLENOL) tablet 650 mg 11-05 11:26: 43 Yes 650mg 650 mg, Oral, Q6HPRN, Starting on Sun11/05/22 at 0526, Until Discontinu ed, Routine, Pain (scale 1-3) [facility] zolpidem (AMBIEN) tablet 10 mg 11-05 11:25: 41 Yes 10mg 10 mg, Oral, QHSPRN, Starting on Sun11/05/22 at 0525, Until Discontinu ed, Routine, Insomnia [facility] ALPRAZolam (XANAX) tablet 1 mg 11-05 11:25: 00 Yes 1mg 1 mg, Oral, TIDPRN, Starting on Sun11/05/22 at 0525, Until Discontinu ed, Routine, Anxiety [facility] morpHINE (4 mg/mL) injection 4 mg 11-05 10:45: 00 11-05 10:08 :00 No 4mg 4 mg, Slow IV Push, ONCE, 1 dose, On Sun11/05/22 at 0445, SE [facility] proMETHazin e (PHENERGAN) 12.5 mg in NS 50 mL IV piggyback (CNR) 11-05 09:15: 00 11-05 10:05 :00 No 12.5mg 12.5 mg, IV Piggyback, at 200 mL/hr Administer over 15 Minutes, ONCE, 1 dose, On [facility] 11/05/22 at 0315, SE [facility] iopamidol (ISOVUE 370-500 mL) injection 85 mL 11-05 08:55: 00 11-05 09:15 :00 No [id number] 85mL 85 mL, Intravenou s, ONCE, 1 dose, On [facility] 11/05/22 at 0315, Routine [facility] ondansetron (ZOFRAN (PF)) injection 4 mg 11-05 05:00: 00 11-05 07:12 :00 No 4mg 4 mg, Slow IV Push, ONCE, 1 dose, On 11/04/22 at 2300, [facility] morpHINE (4 mg/mL) injection 4 mg 11-05 05:00: 00 11-05 07:12 :00 No 4mg 4 mg, Slow IV Push, ONCE, 1 dose, On 11/04/22 at 2300, [facility] CARVEDILOL 3- 00:00: 00 Yes Dwayne Myers carvediloL 3.125 mg tablet 3 00:00: 00 12-06 04:59 :00 No [id number] 3.125mg Take 1 tablet by mouth in the morning and 1 tablet in the evening. Take with meals. Do all this for 30 days. [facility] ONDANSETRON 4MG ODT -24 00:00: 00 Yes Dwayne Myers BACLOFEN 10MG - 00:00: 00 Yes Dwayne Myers CELECOXIB 200MG - 00:00: 00 Yes Dwayne Myers DICLOFEN SOD 100MG ER - 00:00: 00 Yes [id number] Dwayne Myers GABAPENTIN 300MG 2- 00:00: 00 Yes [id number] Dwayne Myers TAKE 1 EVERY 8 HOURS - 00:00: 00 Yes Dwayne Myers PREDNISONE 10MG 10-18 00:00: 00 Yes [id number] Dwayne Myers LISINOPRIL 20MG 2- 00:00: 00 [...] TABLET BY MOUTH EVERY 8 HOURS NEEDED - 00:00: 00 Yes Dwayne Myers TAKE 1 CAPSULE BY MOUTH EVERY 8 HOURS - 00:00: 00 Yes Dwayne Myers TAKE 1 TABLET DAILY. - 00:00: 00 No 10 METHOCARBAM 500MG 3-0 1-19 00:00: 00 No TAKE 1 TABLET DAILY. 2022-0 1-19 00:00: 00 No 10 METHOCARBAM 500MG 3-0 1-19 00:00: 00 No TAKE 1 TABLET DAILY. 2022-0 1-19 00:00: 00 05 00:00 :00 No 10 Dwayne Myers DICLOFEN SOD 100MG ER 2022-0 1-18 00:00: 00 Yes Dwayne Myers TAKE 1 TABLET BY MOUTH EVERY DAY FOR 90 DAYS 2022-0 -18 00:00: 00 Yes Dwayne Myers DICLOFEN SOD 100MG ER 2022-0 1-18 00:00: 00 No DICLOFEN SOD 100MG ER 3-0 -18 00:00: 00 No TAKE 1 TABLET BY MOUTH EVERY DAY FOR 90 DAYS 2022-0 -18 00:00: 00 No FAMOTIDINE 40MG 3-0 1-13 00:00: 00 Yes Dwayne Myers SPIRONOLACT 25MG 3-0 1-13 00:00: 00 Yes Dwayne Myers TAKE 1 TABLET BY MOUTH EVERY 8 HOURS NEEDED 3-0 1-13 00:00: 00 Yes Dwayne Myers FAMOTIDINE 40MG 3-0 1-13 00:00: 00 No SPIRONOLACT 25MG 3-0 1-13 00:00: 00 No TAKE 1 TABLET BY MOUTH EVERY 8 HOURS NEEDED 3-0 1-13 00:00: 00 No FAMOTIDINE 40MG 3-0 1-13 00:00: 00 No SPIRONOLACT 25MG 3-0 1-13 00:00: 00 No TAKE 1 TABLET BY MOUTH EVERY 8 HOURS NEEDED 3-0 1-13 00:00: 00 No TAKE 1 CAPSULE BY MOUTH ONE TIME PER WEEK 2022-0 1-07 00:00: 00 Yes Dwayne Myers TAKE 1 CAPSULE BY MOUTH ONE TIME PER WEEK 2022-0 1-07 00:00: 00 No TAKE 1 CAPSULE BY MOUTH ONE TIME PER WEEK 3-0 1-07 00:00: 00 No TAKE 1 TABLET BY MOUTH EVERY DAY 2021-1 2- 00:00: 00 Yes Dwayne Myers TAKE 1 TABLET BY MOUTH EVERY DAY 20210-04 00:00: 00 No TAKE 1 TABLET BY [...] 2MG TAB 2021-09 00:00: 00 Yes Dwayne Niurka Myers GABAPENTIN 300MG 2021-09 00:00: 00 Yes Dwayne Bah Louis PLEASE SEE ATTACHED FOR DETAILED DIRECTIONS 2021-09 00:00: 00 Yes Dwayne Myers TAKE 1 CAPSULE BY MOUTH EVERY DAY 2021-09 00:00: 00 Yes Dwayne Myers ZOLPIDEM TARTRATE 10MG TAB 2021-09 00:00: 00 Yes Dwayne Bah Louis SPIRONOLACT 50MG TAB 2021-09 00:00: 00 Yes Dwayne Myers BUSPIRONE HYDROCHLORI DE 5MG TAB 2021-09 00:00: 00 Yes Dwayne Niurka Myers BREO ELLIPTA 200-25 INH 2021-09 00:00: [...] Myers HYDROCODONE BITARTRATE/ AC 5-325MG TAB 2021-09 00:00: 00 Yes Dwayne Myers Dose Unknown 2021-09 00:00: 00 Yes Dwayne Myers TAKE 1 TABLET BY MOUTH TWICE A DAY NEEDED 2021-09 00:00: 00 Yes 4 Dwayne Myers Dose Unknown 2021-09 00:00: 00 Yes 4 Dwayne Myers TAKE 1 TABLET BY MOUTH EVERY DAY 2021-09 00:00: 00 Yes Dwayne Myers Dose Unknown 2021-09 00:00: 00 Yes Dwayne Myers Dose Unknown 2021-09 00:00: 00 Yes Dwayne Myers Dose Unknown 2021-09 00:00: 00 Yes Dwayne Myers Dose Unknown 2021-09 00:00: 00 Yes Dwayne Myers BENZONATATE 100MG 2021-09 00:00: 00 Yes 100 Dwayne Myers TAKE 1 TABLET BY MOUTH EVERY DAY 2021-09 00:00: 00 Yes 4 Dwayne Myers [...] 00 No CYCLOBENZAP RINE HYDROCHLO 10MG TAB 2021-09- 00:00: 00 No TAKE 2 PUFFS BY MOUTH EVERY 4 TO 6 HOURS 2021-09 00:00: 00 No TAKE 1 TABLET BY MOUTH TWICE A DAY FOR 30 DAYS 2021-09 00:00: 00 No TIZANIDINE 2MG TAB 2021-09- 00:00: 00 No GABAPENTIN 300MG 2021-09 00:00: 00 No PLEASE SEE ATTACHED FOR DETAILED DIRECTIONS 2021-09 00:00: 00 No TAKE 1 CAPSULE BY MOUTH EVERY DAY 2021-09 00:00: 00 No ZOLPIDEM TARTRATE 10MG TAB 2021-09- 00:00: 00 No SPIRONOLACT 50MG TAB 2021-09 [...] TAB 2021-09 00:00: 00 No Dose Unknown 2021-0914 00:00: 00 No ARIPIPRAZOL E 5MG TAB [...] 2021-09 00:00: 00 No Dose Unknown 2021-09 214 00:00: 00 No Dose Unknown 2021-09 2 00:00: 00 No Dose Unknown 2021-09 214 00:00: 00 No Dose Unknown 2021-09 2 00:00: 00 No BENZONATATE 100MG 2021-09 2 00:00: 00 No 100 TAKE 1 TABLET BY MOUTH EVERY DAY 2021-09 2 00:00: 00 No 4 Dose Unknown 2021-09 2 00:00: 00 No Dose Unknown 2021-09 2 00:00: 00 No Dose Unknown 2021-09 2-14 00:00: 00 No Dose Unknown 2021-09 214 00:00: 00 No ZOLPIDEM ER 12.5MG 2021-09 2- 00:00: 00 Yes Dwayne Myers ZOLPIDEM ER 12.5MG 2021-09 2- 00:00: 00 No ZOLPIDEM ER 12.5MG 2021-09 2 00:00: 00 No TAKE 1 TABLET BY MOUTH EVERY 12 HOURS FOR 7 DAYS 2021-09 2- 00:00: 00 Yes 4 Dwayne Myers TAKE 1 TABLET BY MOUTH TWICE A DAY 2021-09 2- 00:00: 00 Yes Dwayne Myers METOPROL TAR [...] 1 TABLET BY MOUTH TWICE A DAY 2021-09- 00:00: 00 No 5 TAKE 1 TABLET BY MOUTH TWICE A DAY 2021-09 2- 00:00: 00 No 5 CELECOXIB 200MG 2021-09 2- 00:00: 00 No TAKE 1 TABLET BY MOUTH TWICE A DAY 2021-09 2- 00:00: 00 No 5 CELECOXIB 200MG 2021-09 2 00:00: 00 No TIZANIDINE 2MG 2021-09 2 00:00: 00 Yes 2000 Dwayne Myers GABAPENTIN 300MG 2021-09 2- 00:00: 00 Yes [id number] Dwayne Myers VITAMIN D3 50,000IU 2021-09 2- 00:00: 00 Yes Dwayne Myers VITAMIN D3 [...] Yes 25mg Take 1 tablet by mouth. [facility] traMADoL (ULTRAM) tablet 100 mg 2021-09 04:05: 40 07-28 05:41 :29 No 100mg 100 mg, Oral, Q8HPRN, Starting on Sun07/26/22 at 2205, Until Nicole 07/27/22 at 2341, Routine, Pain (scale 4-6) [facility] TAKE 1 TABLET BY MOUTH IN THE MORNING AND 1 TABLET AT NOON AND 1 TABLET IN THE EVENING. 2021-09 00:00: 00 Yes Dwayne Myers metoprolol tartrate 25 mg tablet 2021-09 00:00: 00 Yes [id number] 25mg Take 1 tablet by mouth in the morning and 1 tablet at noon and 1 tablet in the evening. [facility] traMADoL 100 mg Tab 2021-09 00:00: 00 08-04 05:59 :00 No [id number] 100mg Take 100 mg by mouth every 8 (eight) hours as needed for Pain (scale 4-6) for up to 7 days. Indication s: acute pain [facility] metoprolol tartrate (LOPRESSOR) tablet 25 mg 2021-09 20:00: 00 Yes 25mg 25 mg, Oral, TID, First dose (after last modificati on) on Sun07/26/22 at 1400, Until Discontinu ed, Routine [facility] furosemide (LASIX) injection 40 mg 2021-09 18:00: 00 07-26 18:10 :00 No 40mg 40 mg, Slow IV Push, ONCE, 1 dose, On Sun07/26/22 at 1200, Routine [facility] metoprolol tartrate (LOPRESSOR) tablet 25 mg 2021-09 15:30: 00 07-26 17:08 :02 No 25mg 25 mg, Oral, BID, First dose on Sun07/26/22 at 0930, Until Discontinu ed, Routine [facility] enoxaparin (LOVENOX) injection 40 mg 2021-09 15:00: 00 Yes 40mg 40 mg, Subcutaneo us, DAILY, First dose on Sun07/26/22 at 0900, Until Discontinu ed, Routine [facility] amLODIPine (NORVASC) tablet 10 mg 2021-09 15:00: 00 07-26 15:21 :17 No 10mg 10 mg, Oral, DAILY, First dose on Sun07/26/22 at 0900, Until Discontinu ed, Routine [facility] methocarbam oL (ROBAXIN) tablet 500 mg 2021-09 14:00: 00 Yes 500mg 500 mg, Oral, BID, First dose on Sun07/26/22 at 0800, Until Discontinu ed, Routine [facility] ondansetron (ZOFRAN (PF)) injection 4 mg 2021-09 05:42: 35 Yes 4mg 4 mg, Slow IV Push, Q6HPRN, Starting on Sun07/25/22 at 2342, Until Discontinu ed, Routine, Nausea and Vomiting (N/V) [facility] FENTanyl PF (SUBLIMAZE (PF)) injection 50 mcg 2021-09 05:42: 32 07-27 05:41 :32 No 50ug 50 mcg, Slow IV Push, Q3HPRN, Starting on Sun07/25/22 at 2342, Until Sun07/26/22 at 2341, Routine, Pain (scale 7-10) [facility] traMADoL (ULTRAM) tablet 50 mg 2021-09 05:42: 29 07-27 04:05 :58 No 50mg 50 mg, Oral, Q8HPRN, Starting on Sun07/25/22 at 2342, Until Sun07/26/22 at 2205, Routine, Pain (scale 4-6) [facility] ondansetron (ZOFRAN (PF)) injection 4 mg 2021-09 05:00: 00 07-26 04:23 :00 No 4mg 4 mg, Slow IV Push, ONCE, 1 dose, On Sun07/25/22 at 2300, SE [facility] morpHINE (4 mg/mL) injection 4 mg 2021-09 05:00: 00 07-26 04:23 :00 No 4mg 4 mg, Slow IV Push, ONCE, 1 dose, On Sun07/25/22 at 2300, SE [facility] iopamidol (ISOVUE 370-500 mL) injection 100 mL 2021-09 04:15: 00 07-26 03:20 :00 No [id number] 100mL 100 mL, Intravenou s, ONCE, 1 dose, On Sun07/25/22 at 2215, Routine [facility] morpHINE (2 mg/mL) injection 2 mg 2021-09 02:45: 00 07-26 02:36 :00 No 2mg 2 mg, Slow IV Push, ONCE, 1 dose, On Sun07/25/22 at 2045, STAT [facility] TAKE 1 TABLET BY MOUTH IN [...] 2021-09 00:00: 00 07-27 00:00 :00 No [id number] 25mg Take 1 tablet by mouth in the morning and 1 tablet in the evening. [facility] TAKE 1/2 TABLET BY MOUTH TWICE [...] E 40MG DR 2021-09 00:00: 00 Yes [id number] Dwayne Myers ALPRAZOLAM 1MG 2021-09 00:00: 00 Yes Dwayne Myers ALPRAZOLAM 1MG 2021-09 00:00: 00 No ALPRAZOLAM 1MG 2021-09 00:00: 00 No PREDNISONE 10MG 2021-09 00:00: 00 Yes [id number] Dwayne Myers CELECOXIB 200MG 2021-09 00:00: 00 Yes [id number] Dwayne Myers TIZANIDINE 2MG 2021-09 00:00: 00 Yes Dwayne Myers GABAPENTIN 300MG 2021-09 00:00: 00 Yes [id number] Dwayne Myers TIZANIDINE 2MG 2021-09 00:00: 00 No TIZANIDINE 2MG 2021-09 00:00: 00 No ZOLPIDEM 10MG 2021-09 00:00: 00 Yes Dwayne Myers VITAMIN D3 50,000IU 2021-09 00:00: 00 Yes [id number] Dwayne Myers ZOLPIDEM 10MG 2021-09 00:00: 00 No ZOLPIDEM 10MG 2021-09 00:00: 00 No NALOXONE HCL 4MG [facility] 2021-09 00:00: 00 Yes Dwayne Myers APAP/CODEIN [...] Yes Dwayne Myers ATORVASTATI N 20MG 2021-09 00:00: 00 Yes Dwayne Myers TAKE 1 TABLET BY MOUTH EVERY DAY WITH EVENING MEAL 2021-09 00:00: 00 Yes Dwayne Myers USE 1 AMPULE IN NEBULIZER 3 TIMES A DAY 2021-09 0 00:00: 00 Yes Dwayne Myers TAKE 1 TABLET BY MOUTH EVERY DAY 2021-09 0 00:00: 00 Yes Dwayne Myers USE 1 AMPULE IN NEBULIZER 3 TIMES A DAY 2021-09 0 00:00: 00 No USE 1 AMPULE IN NEBULIZER 3 TIMES A DAY 2021-09 00:00: 00 No celecoxib (CELEBREX) 100 mg capsule 2021-09 06:18: 50 06-26 00:00 :00 No 100mg Take 100 mg by mouth 2 (two) times daily with meals. [facility] amLODIPine 10 mg tablet 2021-09 06:18: 06-26 00:00 :00 No 10mg Take 10 mg by mouth daily. [facility] FLUoxetine 10 mg capsule 2021-09 06:18: 06-26 00:00 :00 No 10mg Take 10 mg by mouth daily. [facility] traMADoL 100 mg capsule 2021-09 06:18: 50 06-26 00:00 :00 No 100mg Take 100 mg by mouth every 6 (six) hours as needed. [facility] famotidine (PEPCID AC) tablet 20 mg 2021-09 05:30: 00 Yes 20mg 20 mg, Oral, BID, First dose on Sun06/26/22 at 0030, Until Discontinu ed, Routine [facility] ceFEPIme (MAXIPIME) 1,000 mg in NaCl 0.9% [...] y
Durat ion of therapy: 72 hours [facility] furosemide (LASIX) injection 40 mg 2021-09 14:00: 00 Yes 40mg 40 mg, Slow IV Push, DAILY, First dose on 06/25/22 at 0900, Until Discontinu ed, Routine [facility] enoxaparin (LOVENOX) injection 40 mg 2021-09 14:00: 00 Yes 40mg 40 mg, Subcutaneo us, DAILY, First dose on 06/25/22 at 0900, Until Discontinu ed, Routine [facility] amLODIPine (NORVASC) tablet 10 mg 2021-09 14:00: 00 Yes 10mg 10 mg, Oral, DAILY, First dose on Sun06/25/22 at 0900, Until Discontinu ed, Routine [facility] azithromyci n (ZITHROMAX) tablet 500 mg 2021-09 14:00: 00 06-28 13:59 :00 No 500mg 500 mg, Oral, DAILY, 3 doses, First dose on Sun06/25/22 at 0900, Last dose on Sun06/27/22 at 0900, SE
Re ason for Anti-Infec tive: Empiric Therapy for Suspected Infection< br>Empiric Therapy Site: Respir[facility]
Durat ion of therapy: 72 hours [facility] ceFEPIme (MAXIPIME) 1,000 mg in NaCl 0.9% (NS) 50 mL MINI-BAG 2021-09 13:30: 00 06-25 14:00 :00 No 1000mg 1,000 mg, IV Piggyback, ONCE, 1 dose, On Sun06/25/22 at 0830, Administer over 30 Minutes, 50 mL
Reas on for Anti-Infec tive: Empiric Therapy for Suspected Infection< br>Empiric Therapy Site: Respirator y
Durat ion of therapy: 72 hours [facility] losartan (COZAAR) tablet 50 mg 2021-09 13:00: 00 Yes 50mg 50 mg, Oral, BID, First dose on Sun06/25/22 at 0800, Until Discontinu ed, Routine [facility] methylPREDN ISolone sod succ (SOLU-MEDRO L (PF)) injection 40 mg 2021-09 13:00: 00 Yes 40mg 40 mg, Slow IV Push, Q12H, First dose on Sun06/25/22 at 0800, Until Discontinu ed, Routine [facility] morpHINE (2 mg/mL) injection 2 mg 2021-09 11:02: 17 Yes 2mg 2 mg, Slow IV Push, Q6HPRN, Starting on Sun06/25/22 at 0602, Until Discontinu ed, Routine, Pain (scale 7-10) [facility] iopamidol (ISOVUE 370-500 mL) injection 100 mL 2021-09 07:59: 00 06-25 07:59 :00 No [id number] 100mL 100 mL, Intravenou s, ONCE, 1 dose, On Sun06/25/22 at 0315, Routine [facility] traMADoL (ULTRAM) tablet 50 mg 2021-09 07:36: 43 Yes 50mg 50 mg, Oral, Q6HPRN, Starting on 06/25/22 at 0236, Until Discontinu ed, Routine, Pain (scale 4-6) [facility] morpHINE (4 mg/mL) injection 4 mg 2021-09 05:15: 00 06-25 04:46 :00 No 4mg 4 mg, Slow IV Push, ONCE, 1 dose, On 06/25/22 at 0015, [facility] furosemide (LASIX) injection 40 mg 2021-09 04:30: 00 06-25 04:46 :00 No 40mg 40 mg, IV Push, ONCE, 1 dose, On 06/24/22 at 2330, [facility] ondansetron (ZOFRAN (PF)) injection 4 mg 2021-09 04:29: 13 Yes 4mg 4 mg, Slow IV Push, Q6HPRN, Starting on 06/24/22 at 2329, Until Discontinu ed, Routine, Nausea and Vomiting (N/V) [facility] acetaminoph en (TYLENOL) tablet 650 mg 2021-09 04:29: 07 Yes 650mg 650 mg, Oral, Q6HPRN, Starting on 06/24/22 at 2329, Until Discontinu ed, Routine, Pain (scale 1-3) [facility] PREDNISONE 20MG 2021-09 00:00: 00 Yes Dwayne Myers ALBUTEROL PA HFA 200 INH 2021-09 00:00: 00 Yes [id number] Dwayne Myers ALBUTER 3ML 0.083% 2021-09 00:00: 00 Yes 83 Dwayne Myers AZITHROMYCI N 500MG 2021-09 00:00: 00 Yes [id number] Dwayne Myers TAKE 2 TABLETS BY MOUTH FOR 5 DAYS 2021-09 00:00: 00 Yes Dwayne Myers TAKE 1 CAPSULE BY MOUTH EVERY 8 HOURS NEEDED FOR COUGH 2021-09 00:00: 00 Yes Dwayne Myers BREO ELLIPTA 200-25 INH 2021-09 0-20 00:00: 00 Yes Dwayne Myers FUROSEMIDE 20MG 2021-09 0-17 00:00: 00 Yes Dwayne Myers SPIRONOLACT 25MG 2021-09 0-17 00:00: 00 Yes Dwayne Myers TAKE 1/2 TABLET BY MOUTH TWICE DAILY NEEDED 2021-09 017 00:00: 00 Yes Dwayne Myers FLUOXETIN(P ) 40MG 2021-09 0-15 00:00: 00 Yes Dwayne Myers GABAPENTIN 300MG 2021-09 0-13 00:00: 00 Yes Dwayne Myers VITAMIN D3 50,000IU 2021-09 0- 00:00: 00 Yes [id number] Dwayne Myers PREDNISONE 10MG 2021-09 0-11 00:00: 00 Yes Dwayne Myers CELECOXIB 200MG 2021-09 0-11 00:00: 00 Yes Dwayne Myers ondansetron (ZOFRAN-ODT ) disintegrat ing tablet 4 mg 06-01 02:45: 00 06-01 01:44 :00 No 4mg 4 mg, Oral, ONCE, 1 dose, On Sun05/31/22 at 2145, SE [facility] HYDROcodone -acetaminop hen (NORCO) 10-325 mg tablet 1 tablet 06-01 02:45: 00 06-01 01:45 :00 No 1{tbl} 1 tablet, Oral, ONCE, 1 dose, On Sun05/31/22 at 2145, SE [facility] HYDROCO/APA P 5-325MG 05-31 00:00: 00 Yes Dwayne Myers HYDROcodone -acetaminop hen 5-325 mg tablet 05-31 00:00: 00 06-08 04:59 :00 No [id number] 1{tbl} Take 1 tablet by mouth every 6 (six) hours as needed for Pain (scale 7-10) for up to 7 days. Indication s: acute pain [facility] DICLOFEN SOD 100MG ER 05-30 00:00: 00 Yes [id number] Dwayne Myers ORPHENADRIN E 100MG ER 2021-0 - 00:00: 00 Yes [id number] Dwayne Myers TAKE 1 TABLET BY MOUTH AT BEDTIME NEEDED FOR PAIN 2021-0 05-29 00:00: 00 Yes Dwayne Myers TAKE 1 TABLET BY MOUTH EVERY 8 HOURS 2021-0 - 00:00: 00 Yes Dwayne Myers ZOLPIDEM 10MG 2021-0 -24 00:00: 00 Yes [id number] Dwayne Myers TAKE 1 TABLET BY MOUTH EVERYDAY AT BEDTIME 2021-0 - 00:00: 00 Yes Dwyane Myers USE 1 PUFF EVERY DAY 30 2021-0 - 00:00: 00 Yes Dwayne Myers FLUOXETIN(P ) 40MG 2021-0 -18 00:00: 00 Yes [id number] Dwayne Myers TAKE 1 TABLET BY MOUTH EVERY 8 HOURS NEEDED 2021-0 -16 00:00: 00 Yes Dwayne Myers TAKE 1 CAPSULE BY MOUTH EVERY DAY 2021-0 -16 00:00: 00 Yes Dwayne Myers TAKE 1 CAPSULE BY MOUTH EVERY DAY 2021-0 -16 00:00: 00 Yes Dwayne Myers ALPRAZOLAM 1MG 2021-0 9-14 00:00: 00 Yes 1000 Dwayne Myers TAKE HALF OF A TABLET (0.5 MG) BY MOUTH TWICE A DAY NEEDED 2021-0 -12 00:00: 00 Yes Dwayne Myers VITAMIN D3 50,000IU 2021-0 9-12 00:00: 00 Yes [id number] Dwayne Myers OMEPRAZOLE 20MG 2021-0 9-09 00:00: 00 Yes Dwayne Myers FLUOXETIN(P ) 40MG 2021-0 9-06 00:00: 00 Yes [id number] Dwayne Myers FLUOXETINE HCL 20MG 2021-0 8-28 00:00: 00 Yes [id number] Dwayne Myers DICLOFENAC SODIUM ER 100MG ER 2021-0 8-28 00:00: 00 Yes [id number] Dwayne Myers TAKE 1 CAPSULE BY MOUTH EVERY 8 HOURS 2021-0 8-19 00:00: 00 Yes Dwayne Myers TAKE 1 CAPSULE BY MOUTH EVERY DAY 2021-0 8-19 00:00: 00 Yes Dwayne Myers TAKE 1 CAPSULE BY MOUTH EVERY DAY 0 8-19 00:00: 00 Yes Dwayne Myers PREDNISONE 10MG 0 8-18 00:00: 00 Yes [id number] Dwayne Myers ALPRAZOLAM 1MG 0 8-18 00:00: 00 Yes 1000 Dwayne Myers &lt 2021-0 8-16 00:00: 00 Yes Dwayne Myers Dose Unknown 0 8-16 00:00: 00 Yes Dwayne Myers DICLOFENAC SODIUM ER 100MG ER TAB 0 8-16 00:00: 00 Yes Dwayne Myers &lt 2021-0 8-16 00:00: 00 Yes 500 Dwayne Myers TAKE 1 CAPSULE BY MOUTH EVERY DAY 0 8-16 00:00: 00 Yes Dwayne Myers TAKE 1 TABLET BY MOUTH EVERY DAY FOR 30 DAYS 0 8-16 00:00: 00 Yes 20 Dwayne Myers USE 1 PUFF EVERY DAY 0 8-16 00:00: 00 Yes Dwayne Myers Dose Unknown 0 816 00:00: 00 Yes Dwayne Myers &lt 2021-0 [...] No 20 USE 1 PUFF EVERY DAY 0 8-16 00:00: 00 No INJECT 1 ML INTRAMUSCUL JUDIE ONCE EVERY 3 MONTHS. 0 8-16 00:00: 00 No 150 &lt 2-0 8-16 00:00: 00 No Dose Unknown 0 [...] 2021-0 8-12 00:00: 00 Yes Dwayne Niurka Myers FUROSEMIDE 20MG TAB 2021-0 8-12 00:00: 00 Yes Dwayne Myers TAKE 1 TABLET BY MOUTH TWICE A DAY 2-0 8-12 00:00: 00 Yes Dwayne Myers TAKE 1 TABLET BY MOUTH EVERY DAY FOR 7 DAYS 2021-0 8-12 00:00: 00 No 500 &lt 2022-0 8-12 00:00: 00 No 20 Dose Unknown 2-0 8-12 00:00: 00 No Dose Unknown 2-0 8-12 00:00: 00 No FUROSEMIDE 20MG TAB 2-0 8-12 00:00: 00 No TAKE 1 TABLET BY MOUTH TWICE A DAY 2-0 8-12 00:00: 00 No TAKE 1 TABLET BY MOUTH EVERY DAY FOR 7 DAYS 2-0 8-12 00:00: 00 No 500 &lt 2022-0 8-12 00:00: 00 No 20 TAKE 1 TABLET BY MOUTH TWICE A DAY 2-0 8-12 00:00: 00 No 75 Dose Unknown 2022-0 8 00:00: 00 No FUROSEMIDE 20MG TAB 0 8 00:00: 00 No TAKE 1 TABLET BY MOUTH TWICE A DAY 0 04-14 00:00: 00 No TIZANIDINE HCL 2MG 0 8 00:00: 00 Yes 2000 Dwayne Myers TAKE [...] 00 Yes Dwayne Myers ALPRAZOLAM 1MG TAB 2021-0 04-11 00:00: 00 Yes Dwayne Myers Dose Unknown 0 04-11 00:00: 00 Yes Dwayne Myers TAKE 1 TABLET BY MOUTH EVERY 12 HOURS NEEDED 2021-0 04-11 00:00: 00 Yes Dwayne Myers ALPRAZOLAM 1MG TAB 0 04-11 00:00: 00 No &lt 2021-0 04-11 00:00: 00 No Dose Unknown 0 04-11 00:00: 00 No ALPRAZOLAM 1MG TAB 2021-0 04-11 00:00: 00 No Dose Unknown 0 04-11 00:00: 00 No TAKE 1 TABLET BY MOUTH EVERY 12 HOURS NEEDED 2021-0 04-11 00:00: 00 No &lt 2-0 8 00:00: 00 No 1 &lt 2021-0 8 00:00: 00 No Dose Unknown 0 8 00:00: 00 No ALPRAZOLAM 1MG TAB 2021-0 04-11 00:00: 00 No Dose Unknown 0 8 00:00: 00 No TAKE 1 TABLET BY MOUTH EVERY 12 HOURS NEEDED 2021-0 8 00:00: 00 No GABAPENTIN 300MG 2021-0 8 00:00: 00 Yes [id number] Dwayne Myers ONDANSETRON HYDROCHLORI DE 4MG 2021-0 8-06 00:00: 00 Yes 4000 Dwayne Myers ACETAMINOPH EN/CODEINE DEMOND #4 0 8-05 00:00: 00 Yes Dwayne Myers AMLODIPINE BESYLATE 10MG 2021-0 8-01 00:00: 00 Yes [id number] Dwayne Myers TAKE 1 TABLET BY MOUTH EVERY DAY FOR 90 DAYS 2021-0 7-28 00:00: 00 Yes Dwayne Myers SPIRONOLACT ONE 50MG 2021-0 7-27 00:00: 00 Yes [id number] Dwayne Myers ZOLPIDEM TARTRATE 10MG 2021-0 7-25 00:00: 00 Yes [id number] Dwayne Myers DICLOFENAC SODIUM ER 100MG ER 2021-0 7- 00:00: 00 Yes [id number] Dwayne Myers BREO ELLIPTA 200-25 INH 2021-0 7- 00:00: 00 Yes Dwayne Myers TAKE 1 TABLET BY MOUTH EVERY DAY FOR 90 DAYS 0 7- 00:00: 00 Yes Dwayne Myers ALPRAZOLAM 1MG 2021-0 7- 00:00: 00 Yes 1000 Dwayne Myers FUROSEMIDE 20MG 2021-0 7-20 00:00: 00 Yes Dwayne Myers TAKE 1 CAPSULE BY MOUTH EVERY DAY 2021-0 7-18 00:00: 00 Yes Dwayne Myers TAKE 1 CAPSULE BY MOUTH EVERY DAY 2021-0 7-18 00:00: 00 Yes Dwayne Myers &lt 2022-0 7-15 00:00: 00 Yes 100 Dwayne Myers &lt 2022-0 7-15 00:00: 00 No 100 &lt 2022-0 7-15 00:00: 00 No 100 &lt 2022-0 7-15 00:00: 00 No 100 &lt 2022-0 7-15 00:00: 00 No 100 Cholecalcif shanti, Vitamin D3, 1,250 mcg (50,000 unit) capsule 2021-0 7-14 00:00: 00 01-15 00:00 :00 No [facility] CELECOXIB 200MG 2021-0 7-13 00:00: 00 Yes Dwayne Myers TAKE 1 TABLET BY MOUTH EVERY DAY FOR 30 DAYS 2021-0 7- 00:00: 00 Yes Dwayne Myers TIZANIDINE HCL [...] mg, Subcutaneo us, DAILY, First dose on Sun02/26/22 at 0900, Until Discontinu ed, Routine [facility] amLODIPine (NORVASC) tablet 10 mg 02-26 14:00: 00 Yes 10mg 10 mg, Oral, DAILY, First dose on Sun02/26/22 at 0900, Until Discontinu ed, Routine [facility] celecoxib (CELEBREX) 100 mg capsule 02-26 12:37: 35 Yes 100mg Take 100 mg by mouth 2 (two) times daily with meals. [facility] amLODIPine 10 mg tablet 02-26 12:37: 35 Yes 10mg Take 10 mg by mouth daily. [facility] FLUoxetine 10 mg capsule 02-26 12:37: 35 Yes 10mg Take 10 mg by mouth daily. [facility] traMADoL 100 mg capsule 02-26 12:37: 35 Yes 100mg Take 100 mg by mouth every 6 (six) hours as needed. [facility] ondansetron (ZOFRAN (PF)) injection 4 mg 02-26 04:30: 54 Yes 4mg 4 mg, Slow IV Push, Q6HPRN, Starting on 02/25/22 at 2330, Until Discontinu ed, Routine, Nausea and Vomiting (N/V) [facility] acetaminoph en (TYLENOL) tablet 650 mg 02-26 04:30: 45 Yes 650mg 650 mg, Oral, Q6HPRN, Starting on 02/25/22 at 2330, Until Discontinu ed, Routine, Pain (scale 1-3) [facility] ondansetron (ZOFRAN (PF)) injection 4 mg 02-23 05:45: 00 02-23 04:58 :00 No 4mg 4 mg, Slow IV Push, ONCE, 1 dose, [facility] Sun02/23/22 at 0045[facility]/mL[facility] injection 4 mg 02-23 05:45: 00 02-23 04:58 :00 No 4mg 4 mg, Slow IV Push, ONCE, 1 dose, On Sun02/23/22 at 0045, STAT [facility] acetaminoph en (TYLENOL) tablet 1,000 mg 02-23 04:00: 00 02-23 03:13 :00 No 1000mg 1,000 mg, Oral, ONCE, 1 dose, On Sun02/22/22 at 2300, [facility] methocarb[facility]L (ROBAXIN) tablet 1,000 mg 02-23 04:00: 00 02-23 03:14 :00 No 1000mg 1,000 mg, Oral, ONCE, 1 dose, On Sun02/22/22 at 2300, [facility] TAKE 1 CAPSULE BY MOUTH EVERY DAY 02-20 00:00: 00 Yes Dwayneomayra Myers TAKE 1 TABLET BY MOUTH EVERY 8 HOURS 02-20 00:00: 00 Yes Dwayne Myers FLUOXETINE HYDROCHLORI DE 40MG 02-20 00:00: 00 Yes [id number] Dwayne Myers VITAMIN D3 50,000IU 02-20 00:00: 00 Yes [id number] 0 Dwayne Myers TAKE 1 CAPSULE BY MOUTH EVERY DAY 2-0 6-20 00:00: 00 No TAKE 1 CAPSULE BY MOUTH EVERY DAY 2-0 6-20 00:00: 00 No TAKE 1 CAPSULE BY MOUTH EVERY DAY 2-0 6-20 00:00: 00 No TAKE 1 CAPSULE BY MOUTH EVERY DAY 2-0 6-20 00:00: 00 No &lt 2022-0 6-16 00:00: 00 Yes Dwayne Myers TIZANIDINE HCL 2MG 2-0 6-16 00:00: 00 Yes 1999 Dwayne Myers &lt 2022-0 6- 00:00: 00 No &lt 2022-0 616 00:00: 00 No &lt 2022-0 616 00:00: 00 No &lt 2022-0 616 00:00: 00 No CELECOXIB 200MG 2-0 02-14 00:00: 00 Yes Dwayne Myers Dose Unknown 2021-0 02-09 00:00: 00 Yes Dawyne Myers &lt 2022-0 6 00:00: 00 Yes Dwayne Myers TAKE 1 TABLET BY MOUTH TWICE A DAY FOR 30 DAYS 2021-0 6 00:00: 00 Yes Dwayne Myers &lt 2022-0 6 00:00: 00 Yes Dwayne Myers &lt 2022-0 02-09 00:00: 00 Yes Dwayne Myers Dose Unknown 2021-0 6 00:00: 00 No &lt 2022-0 6 00:00: 00 No TAKE 1 TABLET BY MOUTH TWICE A DAY FOR 30 DAYS 2-0 6- 00:00: 00 No &lt 2022-0 6- 00:00: 00 No &lt 2022-0 6- 00:00: 00 No Dose Unknown 2-0 6- 00:00: 00 No &lt 2022-0 6- 00:00: 00 No TAKE 1 TABLET BY MOUTH TWICE A DAY FOR 30 DAYS 2-0 6- 00:00: 00 No &lt 2022-0 [...] No &lt 2022-0 6- 00:00: 00 No TRAZODONE HYDROCHLORI DE 50MG 2021-0 - 00:00: 00 Yes [id number] Dwayne Myers TAKE 1 BY MOUTH ORALLY [...] 2022-0 6- 00:00: 00 No Dose Unknown 2021-0 02-01 00:00: 00 Yes Dwayne Myers TAKE 1 TABLET BY MOUTH EVERY 12 HOURS NEEDED 2021-0 6- 00:00: 00 Yes Dwayne Myers METFORMIN HYDROCHLORI DE 500MG 2021-0 - 00:00: 00 Yes [id number] Dwayne Myers BREO ELLIPTA 200-25 INH 2021-0 6- 00:00: 00 Yes Dwayen Myers Dose Unknown 2021-0 6 00:00: 00 No TAKE 1 TABLET BY MOUTH EVERY 12 HOURS NEEDED 2021-0 6- 00:00: 00 No Dose Unknown 2021-0 6 00:00: 00 No TAKE 1 TABLET BY MOUTH EVERY 12 HOURS NEEDED 2021-0 6- 00:00: 00 No Dose Unknown 2021-0 6 00:00: 00 No TAKE 1 TABLET BY MOUTH EVERY 12 HOURS NEEDED 0 02-01 00:00: 00 No Dose Unknown 0 02-01 00:00: 00 No TAKE 1 TABLET BY MOUTH EVERY 12 HOURS NEEDED 0 02-01 00:00: 00 No metformin 500 mg tablet 0 01-31 00:00: 00 Yes 1mg Dwayne Myers Dose Unknown 0 01-31 00:00: 00 Yes Dwayne Myers &lt 0 01-31 00:00: 00 Yes Dwayne Myers TAKE 1 TABLET BY MOUTH TWICE A DAY 0 01-31 00:00: 00 Yes Dwayne Myers TAKE 2 PUFFS BY MOUTH EVERY 4 TO 6 HOURS 0 01-31 00:00: 00 Yes Dwayne Myers TAKE 1 CAPSULE BY MOUTH EVERY DAY 0 01-31 00:00: 00 Yes Dwayne Myers TAKE 6 TABLETS ON DAY 1 DIRECTED ON PACKAGE AND DECREASE BY 1 TAB EACH DAY FOR A TOTAL OF 6 DAYS 0 01-31 00:00: 00 Yes Dwayne Myers metformin 500 mg tablet 0 01-31 00:00: 00 No 1mg Dose Unknown 0 01-31 00:00: 00 No metformin 500 mg tablet 0 01-31 00:00: 00 No 1mg &lt 0 [...] 1 dose, On 01/29/22 at 0915, Routine [facility] albuterol (PROVENTIL) 2.5 mg /3 mL (0.083 %) nebulizer solution 5 mg 01-29 14:15: 00 01-29 13:42 :00 No 5mg 5 mg, Inhalation , ONCE, 1 dose, On Sun01/29/22 at 0915, SE [facility] Dose Unknown 0 01-28 00:00: 00 [...] 1 CAPSULE BY MOUTH EVERY 8 HOURS 2021-0 01-23 00:00: 00 Yes Dwayne Myers TAKE 1 CAPSULE BY MOUTH EVERY DAY 0 01-23 00:00: 00 Yes Dwayne Myers OMEPRAZOLE 20MG 0 01-20 00:00: 00 Yes Dwayne Myers VITAMIN D3 50,000IU 0 01-18 00:00: 00 Yes [id number] 0 Dwayne Myers TAKE 1 TABLET BY MOUTH EVERY DAY FOR 7 DAYS 0 - 00:00: 00 Yes Dwayne Myers FENTanyl PF (SUBLIMAZE (PF)) injection 50 mcg 0 - 04:45: 00 01-03 04:36 :00 No 50ug 50 mcg, Intramuscu lar, ONCE, 1 dose, On Sun01/02/22 at 2345, Routine [facility] CELECOXIB 200MG 0 00:00: 00 Yes Dwayne Myers OMEPRAZOLE 20MG [...] mouth 2 (two) times daily with meals. [facility] amLODIPine 10 mg tablet 12-07 12:53: 05 Yes 10mg Take 10 mg by mouth daily. [facility] FLUoxetine 10 mg capsule 12-07 12:53: 05 Yes 10mg Take 10 mg by mouth daily. [facility] traMADoL 100 mg capsule 12-07 12:53: 05 Yes 100mg Take 100 mg by mouth every 6 (six) hours as needed. [facility] predniSONE 10 mg tablet 12-07 10:31: 12-07 00:00 :00 No 10mg Take 10 mg by mouth daily. [facility] hydrALAZINE 100 mg tablet 12-07 10:31: 12-07 00:00 :00 No 100mg Take 100 mg by mouth 2 (two) times daily. [facility] cefTRIAXone (ROCEPHIN) injection 2,000 mg 12-07 05:00: 00 12-12 04:59 :00 No 2000mg 2,000 mg, Intravenou s, Q24H ABX, 5 doses, First dose on Sun12/07/21 at 0000, Last dose on Sun12/11/21 at 0000
Re ason for Anti-Infec tive: Documented Infection< br>Documen britney Infection Site: Respirator y
Durat ion of Therapy: 7 days [facility] PLEASE SEE ATTACHED FOR DETAILED DIRECTIONS 12-07 00:00: 00 Yes Dwayne Myers AZITHROMYCI N 500MG 12-07 00:00: 00 Yes [id number] Dwayne Myers predniSONE 10 mg tablet 12-07 00:00: 00 12-23 04:59 :00 No [id number] Take 2 tablets by mouth daily for 5 days, THEN 1 tablet daily for 5 days, THEN 0.5 tablets daily for 5 days. [facility] azithromyci n 500 mg tablet 12-07 00:00: 00 12-10 04:59 :00 No [id number] 500mg Take 1 tablet by mouth daily for 2 days. [facility] traMADoL (ULTRAM) tablet 50 mg 12-06 16:44: 28 Yes 50mg 50 mg, Oral, Q6HPRN, Starting on Sun12/06/21 at 1144, Until Discontinu ed, Routine, Pain (scale 4-6) [facility] ALPRAZolam (XANAX) tablet 0.5 mg 12-06 16:43: 05 Yes .5mg 0.5 mg, Oral, BIDPRN, Starting on Sun12/06/21 at 1143, Until Discontinu ed, Routine, anxiety [facility] HYDROcodone -acetaminop hen (NORCO 5) 5-325 mg tablet 1 tablet 12-06 16:42: 38 Yes 1{tbl} 1 tablet, Oral, Q6HPRN, Starting on Sun12/06/21 at 1142, Until Discontinu ed, Routine, Pain (scale 7-10) [facility] azithromyci n (ZITHROMAX) 500 mg in [...] ion of therapy: 72 hours [facility] KCL (KLOR-CON M20) tablet 40 mEq 12-06 14:00: 00 Yes 40meq 40 mEq, Oral, DAILY, First dose on Sun12/06/21 at 0900, Until Discontinu ed, Routine [facility] enoxaparin (LOVENOX) injection 40 mg 12-06 14:00: 00 Yes 40mg 40 mg, Subcutaneo us, Q24H, First dose on Sun12/06/21 at 0900, Until Discontinu ed, Routine [facility] predniSONE (DELTASONE) tablet 20 mg 12-06 14:00: 00 Yes 20mg 20 mg, Oral, DAILY, First dose on Sun12/06/21 at 0900, Until Discontinu ed, Routine [facility] FLUoxetine (PROZAC) capsule 20 mg 12-06 14:00: 00 Yes 20mg 20 mg, Oral, DAILY, First dose on Sun12/06/21 at 0900, Until Discontinu ed, Routine [facility] amLODIPine (NORVASC) tablet 5 mg 12-06 14:00: 00 Yes 5mg 5 mg, Oral, DAILY, First dose on Sun12/06/21 at 0900, Until Discontinu ed, Routine [facility] magnesium oxide (MAG-OX 400) tablet 400 mg 12-06 13:00: 00 Yes 400mg 400 mg, Oral, BID, First dose on Sun12/06/21 at 0800, Until Discontinu ed, Routine [facility] ipratropium -albuteroL (DUONEB) 0.5 mg-3 mg(2.5 mg base)/3 mL nebulizer solution 3 mL 12-06 13:00: 00 Yes 3mL 3 mL, Inhalation , QID, First dose on Sun12/06/21 at 0800, Until Discontinu ed, Routine [facility] lactobacill us acidophilus tablet 0.5 mg 12-06 13:00: 00 Yes .5mg 0.5 mg, Oral, BID, First dose on Sun12/06/21 at 0800, Until Discontinu ed, Routine [facility] levoFLOXaci n in D5W (LEVAQUIN) 750 [...]
Re stricted use approved by: ADC PROVIDER [facility] traMADoL (ULTRAM) tablet 50 mg 12-06 08:14: 42 12-06 16:44 :40 No 50mg 50 mg, Oral, Q6HPRN, Starting on Sun12/06/21 at 0314, Until Sun12/06/21 at 1144, Routine, Pain (scale 7-10) [facility] HYDROcodone -acetaminop hen (NORCO) 10-325 mg tablet 1 tablet 12-06 06:00: 00 12-06 04:59 :00 No 1{tbl} 1 tablet, Oral, ONCE, 1 dose, On Sun12/06/21 at 0100, Routine [facility] fluticasone propion-lavon meteroL (ADVAIR) 250-50 mcg/dose inhalation disk 1 Puff 12-05 13:00: 00 Yes 1{puff} 1 Puff, Inhalation , Q12H, First dose on Sun12/05/21 at 0800, Until Discontinu ed, Routine [facility] lurasidone HCl (LATUDA ORAL) 12-05 05:43: 55 12-05 00:00 :00 No Take by mouth. [facility] acetylcyste ine (MUCOMYST) 200 mg/mL (20 %) solution 800 mg 12-05 05:00: 00 12-08 04:59 :00 No 4mL 800 mg (4 mL), Inhalation , Q6H, 12 doses, First dose on Sun12/05/21 at 0000, Last dose on Sun12/07/21 at 1800, Routine [facility] cefTRIAXone (ROCEPHIN) 1,000 mg in NaCl 0.9% (NS) 50 mL MINI-BAG 12-05 03:00: 00 Yes 1000mg 1,000 mg, IV Piggyback, Q24H ABX, First dose on Sun12/04/21 at 2200, Until Discontinu ed, Administer over 30 Minutes, 50 mL
Reas on for Anti-Infec tive: Empiric Therapy for Suspected Infection& lt;br>Empi leandro Therapy Site: Respirator y
Durat ion of therapy: 72 hours [facility] ipratropium -albuteroL (DUONEB) 0.5 mg-3 mg(2.5 mg base)/3 mL nebulizer solution 3 mL 12-05 02:00: 00 Yes 3mL 3 mL, Inhalation , Q6HPRN, Starting on Sun12/04/21 at 2100, Until Discontinu ed, Routine, Wheezing [facility] methylpredn isolone sod succ (SOLU-MEDRO L) injection 60 mg 12-05 02:00: 00 Yes 60mg 60 mg, Slow IV Push, Q12H, First dose on Sun12/04/21 at 2100, Until Discontinu ed, Routine [facility] HYDROcodone -acetaminop hen (NORCO) 10-325 mg tablet 1 tablet 12-05 01:55: 51 Yes 1{tbl} 1 tablet, Oral, Q6HPRN, Starting on Sun12/04/21 at 2055, Until Discontinu ed, Routine, Pain (scale 4-6) [facility] TAKE 1 TABLET BY MOUTH EVERY 8 HOURS 12-05 00:00: 00 Yes Dwayne Myers TAKE 1 CAPSULE BY MOUTH EVERY DAY 12-05 00:00: 00 Yes Dwayne Myers iopamidol (ISOVUE 370-500 mL) injection 100 mL 12-04 20:43: 00 12-04 20:43 :00 No [id number] 100mL 100 mL, Intravenou s, ONCE, 1 dose, On 12/04/21 at 1600, Routine [facility] enoxaparin (LOVENOX) injection 40 mg 12-04 14:00: 00 Yes 40mg 40 mg, Subcutaneo us, DAILY, First dose on Sun12/04/21 at 0900, Until Discontinu ed, Routine [facility] amLODIPine (NORVASC) tablet 5 mg 12-04 14:00: 00 Yes 5mg 5 mg, Oral, DAILY, First dose on 12/04/21 at 0900, Until Discontinu ed, Routine [facility] predniSONE (DELTASONE) tablet 20 mg 12-04 14:00: 00 12-05 01:54 :23 No 20mg 20 mg, Oral, DAILY, First dose on 12/04/21 at 0900, Until Discontinu ed, Routine [facility] lurasidone (LATUDA) tablet 20 mg 12-04 12:30: 00 Yes 20mg 20 mg, Oral, QAM-0730, First dose on 12/04/21 at 0730, Until Discontinu ed [facility] doxycycline hyclate (Vibramycin ) capsule 100 mg 12-04 11:00: 00 Yes 100mg 100 mg, Oral, Q12HA2, First dose on Sun12/04/21 at 0600, Until Discontinu ed, SE
Re ason for Anti-Infec tive: Empiric Therapy for Suspected Infection< br>Empiric Therapy Site: Respirator y
Durat ion of therapy: 7 days [facility] NaCl 0.9% (NS) IV infusion 500 mL 12-04 11:00: 00 12-04 15:59 :00 No 500mL at 100 mL/hr, IV Infusion, CONTINUOUS , Starting on 12/04/21 at 0600, Until Sun12/04/21 at 1059, Routine [facility] zolpidem (AMBIEN) tablet 5 mg 12-04 06:14: 57 Yes 5mg 5 mg, Oral, QHSPRN, Starting on 12/04/21 at 0114, Until Discontinu ed, Routine, Insomnia [facility] docusate (COLACE) capsule 100 mg 12-04 01:00: 00 Yes 100mg 100 mg, Oral, BID, First dose on 12/03/21 at 1999, Until Discontinu ed, Routine [facility] busPIRone (BUSPAR) tablet 5 mg 12-04 01:00: 00 Yes 5mg 5 mg, Oral, BID, First dose on 12/03/21 at 1999, Until Discontinu ed, Routine [facility] ipratropium -albuteroL (DUONEB) 0.5 mg-3 mg(2.5 mg base)/3 mL nebulizer solution 3 mL 12-04 01:00: 00 12-05 01:56 :47 No 3mL 3 mL, Inhalation , QID, First dose on 12/03/21 at 1999, Until Discontinu ed, Routine [facility] ondansetron (ZOFRAN (PF)) injection 4 mg 12-03 22:05: 11 Yes 4mg 4 mg, Slow IV Push, Q6HPRN, Starting on 12/03/21 at 1705, Until Discontinu ed, Routine, Nausea and Vomiting (N/V) [facility] HYDROcodone -acetaminop hen (NORCO 5) 5-325 mg tablet 1 tablet 12-03 22:05: 07 12-05 01:56 :02 No 1{tbl} 1 tablet, Oral, Q6HPRN, Starting on 12/03/21 at 1705, Until 12/04/21 at 2055, Routine, Pain (scale 4-6) [facility] acetaminoph en (TYLENOL) tablet 650 mg 12-03 22:05: 04 Yes 650mg 650 mg, Oral, Q6HPRN, Starting on 12/03/21 at 1705, Until Discontinu ed, Routine, Pain (scale 1-3) [facility] methylpredn isolone sod succ (SOLU-MEDRO L) injection 125 mg 12-03 21:00: 00 12-03 22:03 :00 No 125mg 125 mg, Slow IV Push, ONCE NOW, 1 dose, On 12/03/21 at 1600, SE [facility] albuterol (PROVENTIL) 2.5 mg /3 mL (0.083 %) nebulizer solution 2.5 mg 12-03 21:00: 00 12-03 22:06 :33 No 2.5mg 2.5 mg, Inhalation , QID, First dose on 12/03/21 at 1600, Until Discontinu ed, Routine [facility] ipratropium (ATROVENT) 0.02 % nebulizer solution 0.5 mg 12-03 21:00: 00 12-03 22:06 :24 No .5mg 0.5 mg, Inhalation , QID, First dose on 12/03/21 at 1600, Until Discontinu ed, Routine [facility] CELECOXIB 200MG 2021-0 11-30 00:00: 00 Yes Dwayne Myers TAKE 1 TABLET BY MOUTH EVERY DAY FOR 30 DAYS 2021-0 - 00:00: 00 Yes Dwayne Myers TAKE 1 TABLET BY MOUTH TWICE A DAY FOR 30 DAYS 2021-0 11-30 00:00: 00 Yes Dwayne Myers TAKE 1 TABLET BY MOUTH AT BEDTIME 2021-0 11-30 00:00: 00 Yes Dwayne Myers TAKE 1 TABLET BY MOUTH TWICE A DAY 0 - 00:00: 00 Yes Dwayne Myers TAKE 1 TABLET BY MOUTH EVERY 12 HOURS NEEDED FOR PAIN 2021-0 - 00:00: 00 Yes Dwayne Myers SULINDAC 200MG 2021-0 - 00:00: 00 Yes Dwayne Myers METHOCARBAM OL 500MG 2021-0 3- 00:00: 00 Yes Dwayne Myers FLUOXETINE HCL 20MG 2021-0 3-23 00:00: 00 Yes Dwayne Myers PREDNISONE 20MG 2021-0 3-17 00:00: 00 Yes Dwayne Myers ALBUTEROL SULFATE HFA HFA 200 INH 11-16 00:00: 00 Yes Dwayne Myers predniSONE (DELTASONE) tablet 30 mg 11-12 15:00: 00 Yes 30mg 30 mg, Oral, DAILY, First dose (after last modificati on) on Sun11/12/21 at 0900, Until Discontinu ed, Routine [facility] piperacilli n-tazobacta m (ZOSYN) 3.375 g in NaCl 0.9% (NS) 50 mL MINI-BAG 11-11 23:30: 00 Yes 3.375g 3.375 g, IV Piggyback, Q8H ABX, First dose on Sun11/11/21 at 1730, Until Discontinu ed, Administer over 4 Hours, 50 mL
Reas on for Anti-Infec tive: Empiric Therapy for Suspected Infection< br>Empi leandro Therapy Site: Respirator y
Durat ion of therapy: 72 hours [facility] lurasidone HCl (LATUDA ORAL) 11-11 17:32: 07 Yes Take by mouth. [facility] KCL (KLOR-CON M20) tablet 20 mEq 11-11 02:00: 00 11-11 02:20 :00 No 20meq 20 mEq, Oral, ONCE, 1 dose, On Nicole 11/10/21 at 2000, Routine [facility] MIRTAZAPINE 15MG 11-11 00:00: 00 Yes Dwayne Myers predniSONE 20 mg tablet 11-11 00:00: 00 12-05 00:00 :00 No [id number] 20mg Take 1 tablet by mouth daily. [facility] piperacilli n-tazobacta m (ZOSYN) 3.375 g in NaCl 0.9% (NS) 100 mL VIAL-MATE 11-10 22:00: 00 11-11 21:01 :00 No 3.375g 3.375 g, IV Piggyback, Q8H ABX, First dose on Sun11/10/21 at 1600, Until Discontinu ed, Administer over 4 Hours, 100 mL
Reas on for Anti-Infec tive: Empiric Therapy for Suspected Infection< br>Empiric Therapy Site: Respirator y
Durat ion of therapy: 72 hours [facility] enoxaparin (LOVENOX) injection 40 mg 11-10 15:00: 00 Yes 40mg 40 mg, Subcutaneo us, DAILY, First dose on Nicole 11/10/21 at 0900, Until Discontinu ed, Routine [facility] hydroCHLORO thiazide (ESIDRIX) capsule 12.5 mg 11-10 15:00: 00 Yes 12.5mg 12.5 mg, Oral, DAILY, First dose on Nicole 11/10/21 at 0900, Until Discontinu ed, Routine [facility] amLODIPine (NORVASC) tablet 10 mg 11-10 15:00: 00 Yes 10mg 10 mg, Oral, DAILY, First dose on Nicole 11/10/21 at 0900, Until Discontinu ed, [facility] predniSONE (DELTASONE) tablet 40 mg 11-10 15:00: 00 11-11 17:05 :49 No 40mg 40 mg, Oral, DAILY, First dose on Nicole 11/10/21 at 0900, Until Discontinu ed, Routine [facility] docusate (COLACE) capsule 100 mg 11-10 14:00: 00 Yes 100mg 100 mg, Oral, BID, First dose on Nicole 11/10/21 at 0800, Until Discontinu ed, Routine [facility] busPIRone (BUSPAR) tablet 5 mg 11-10 14:00: 00 Yes 5mg 5 mg, Oral, BID, First dose on Nicole 11/10/21 at 0800, Until Discontinu ed, Routine [facility] lurasidone (LATUDA) tablet 20 mg 11-10 13:30: 00 Yes 20mg 20 mg, Oral, QAM-0730, First dose on Nicole 11/10/21 at 0730, Until Discontinu ed [facility] morpHINE injection 2 mg 11-10 07:05: 58 Yes 2mg 2 mg, Slow IV Push, Q4HPRN, Starting on Sun11/10/21 at 0105, Until Discontinu ed, Routine, Pain (scale 7-10) [facility] ondansetron (ZOFRAN (PF)) injection 4 mg 11-10 05:19: 35 Yes 4mg 4 mg, Slow IV Push, Q6HPRN, Starting on Sun11/09/21 at 2319, Until Discontinu ed, Routine, Nausea and Vomiting (N/V) [facility] HYDROcodone -acetaminop hen (NORCO 5) 5-325 mg tablet 1 tablet 11-10 05:19: 30 11-12 05:18 :30 No 1{tbl} 1 tablet, Oral, Q6HPRN, Starting on Sun11/09/21 at 2319, Until Sun11/11/21 at 2318, Routine, Pain (scale 4-6) [facility] acetaminoph en (TYLENOL) tablet 650 mg 11-10 05:19: 28 Yes 650mg 650 mg, Oral, Q6HPRN, Starting on Sun11/09/21 at 2319, Until Discontinu ed, Routine, Pain (scale 1-3) [facility] albuterol (VENTOLIN) inhaler 2 Puff 11-10 05:17: 52 Yes 2{puff} 2 Puff, Inhalation , Q6HPRN, Starting on Sun11/09/21 at 2317, Until Discontinu ed, Routine, Wheezing, Shortness of Breath [facility] iopamidol (ISOVUE 370-500 mL) injection 100 mL 11-10 04:43: 00 11-10 04:44 :00 No [id number] 100mL 100 mL, Intravenou s, ONCE, 1 dose, On Sun11/09/21 at 2300, Routine [facility] morpHINE injection 4 mg 11-10 03:45: 00 11-10 02:57 :00 No 4mg 4 mg, Slow IV Push, ONCE, 1 dose, On Sun11/09/21 at 2145, [facility] piperacilli n-tazobacta m (ZOSYN) 3.375 g in NaCl 0.9% (NS) 50 mL MINI-BAG 11-10 03:45: 00 11-10 05:33 :00 No 3.375g 3.375 g, IV Piggyback, ONCE, 1 dose, On Sun11/09/21 at 2145, Administer over 30 Minutes, 50 mL
Reas on for Anti-Infec tive: Documented Infection< br>Documen britney Infection Site: HEENT
D uration of Therapy: Other (see Comments) [facility] NaCl 0.9% (NS) bolus infusion 1,000 mL 11-10 03:45: 00 11-10 05:33 :00 No 1000mL at 999 mL/hr, 1,000 mL, IV Infusion, ONCE, 1 dose, On Sun11/09/21 at 2145, [facility] ondansetron (ZOFRAN (PF)) injection 4 mg 11-10 03:00: 00 11-10 01:59 :00 No 4mg 4 mg, Slow IV Push, ONCE, 1 dose, On Sun11/09/21 at 2100, [facility] morpHINE injection 4 mg 11-10 03:00: 00 11-10 01:58 :00 No 4mg 4 mg, Slow IV Push, ONCE, 1 dose, On Sun11/09/21 at 2100, STAT [facility] albuterol (PROVENTIL) 2.5 mg /3 mL (0.083 %) nebulizer solution 2.5 mg 11-10 02:00: 00 Yes 2.5mg 2.5 mg, Inhalation , QID, First dose on Sun11/09/21 at 2000, Until Discontinu ed, Routine [facility] ipratropium (ATROVENT) 0.02 % nebulizer solution 0.5 mg 11-10 02:00: 00 Yes .5mg 0.5 mg, Inhalation , QID, First dose on Sun11/09/21 at 2000, Until Discontinu ed, Routine [facility] TAKE 1 CAPSULE BY MOUTH EVERY DAY 11-07 00:00: 00 Yes Dwayne Myers FLUOXETINE HYDROCHLORI DE 40MG 11-07 00:00: 00 Yes [id number] Dwayne Myers AMOXICILLIN /CLAVULANAT E P [id number] 3-05 00:00: 00 Yes Dwayne Myers DICLOFENAC SODIUM ER 100MG ER - 00:00: 00 Yes [id number] Dwayne Myers hydroCHLORO thiazide 12.5 mg capsule 10-25 00:00: 00 12-05 00:00 :00 No [id number] 12.5mg Take 1 capsule by mouth daily. [facility] lurasidone HCl (LATUDA ORAL) 10-24 17:53: 11 Yes Take by mouth. [facility] lurasidone HCl (LATUDA ORAL) 10-24 10:59: 57 Yes Take by mouth. [facility] zolpidem (AMBIEN) tablet 5 mg 10-24 04:00: 00 10-24 03:07 :00 No 5mg 5 mg, Oral, ONCE, 1 dose, On Sun10/23/21 at 2200, Routine [facility] docusate 100 mg capsule 10-24 00:00: 00 12-05 00:00 :00 No [id number] 100mg Take 1 capsule by mouth 2 (two) times daily. [facility] busPIRone 5 mg tablet 10-24 00:00: 00 12-05 00:00 :00 No [id number] 5mg Take 1 tablet by mouth 2 (two) times daily. [facility] chlorhexidi ne 0.12 % mouthwash 10-24 00:00: 00 12-05 00:00 :00 No [id number] 15mL Swish and spit out 15 mL 2 (two) times daily. [facility] albuterol 90 mcg/actuati on inhaler 10-24 00:00: 00 12-05 00:00 :00 No [id number] 2{puff} Inhale 2 Puffs every 6 (six) hours as needed for Wheezing or Shortness of Breath. [facility] predniSONE 20 mg tablet 10-24 00:00: 00 11-11 00:00 :00 No [id number] 40mg Take 2 tablets by mouth daily. [facility] acetaminoph en-codeine 300-30 mg tablet 10-24 00:00: 00 10-30 05:59 :00 No [id number] 1{tbl} Take 1 tablet by mouth every 4 (four) hours as needed for Pain (scale 4-6) for up to 5 days. Indication s: acute pain [facility] phenoL (SORE THROAT (PHENOL)) 1.4 % spray bottle 1 [place] 10-23 19:03: 59 Yes 1{spray } 1 [place], Oral, PRN, Starting on 10/23/21 at 1303, Until Discontinu ed, Routine, Sore throat [facility] zolpidem (AMBIEN) tablet 5 mg 10-23 04:00: 00 10-23 03:54 :00 No 5mg 5 mg, Oral, ONCE, 1 dose, On 10/22/21 at 2200, Routine [facility] methylpredn isolone sod succ (SOLU-MEDRO L) injection 125 mg 10-22 20:00: 00 Yes 125mg 125 mg, Intravenou s, Q8H, First dose (after last modificati on) on 10/22/21 at 1400, Until Discontinu ed, Routine [facility] hydroCHLORO thiazide (ESIDRIX) capsule 12.5 mg 10-22 15:30: 00 Yes 12.5mg 12.5 mg, Oral, DAILY, First dose on 10/22/21 at 0930, Until Discontinu ed, Routine [facility] amLODIPine (NORVASC) tablet 10 mg 10-22 15:30: 00 Yes 10mg 10 mg, Oral, DAILY, First dose on Sun10/22/21 at 0930, Until Discontinu ed, Routine [facility] acetaminoph en (TYLENOL) tablet 650 mg 10-22 09:54: 49 Yes 650mg 650 mg, Oral, Q6HPRN, Starting on 10/22/21 at 0354, Until Discontinu ed, Routine, Pain (scale 1-3) [facility] chlorhexidi ne (PERIDEX) 0.12 % mouthwash 15 mL 10-22 02:00: 00 Yes 15mL 15 mL, Oral (Swish And Spit Out), BID, First dose on Sun10/21/21 at 2000, Until Discontinu ed, Routine [facility] dexMEDEtomi dine 200 mcg in 0.9 [...] at maximum allowed dose, contact prescriber .
[facility] propofoL IV infusion 10-21 20:41: 59 [...] vials should be discarded after 12 hours.
[facility] fentaNYL PF (SUBLIMAZE) STD 2,500 mcg [...] at maximum allowed dose, contact prescriber .
[facility] lidocaine 4% (XYLOCAINE) 4 % (40 mg/mL) topical solution 10-21 19:00: 00 Yes PRN, Starting on Sun10/21/21 at 1300, Until Discontinu ed, Routine, Intra-op [facility] methylpredn isolone sod succ (SOLU-MEDRO L) injection 125 mg 10-21 19:00: 00 10-22 15:22 :22 No 125mg 125 mg, Intravenou s, Q6H, First dose (after last modificati on) on Sun10/21/21 at 1300, Until Discontinu ed, Routine [facility] metoprolol (LOPRESSOR) injection 5 mg 10-21 19:00: 00 10-21 19:00 :00 No 5mg 5 mg, Slow IV Push, ONCE, 1 dose, On Sun10/21/21 at 1300, Routine [facility] EPINEPHrine 1:1,000 (1 mg/mL) (ADRENALIN) injection 10-21 18:01: 00 Yes PRN, Starting on Sun10/21/21 at 1201, Until Discontinu ed, Routine, Intra-op [facility] ondansetron (ZOFRAN (PF)) injection 4 mg 10-21 17:19: 50 Yes 4mg 4 mg, Slow IV Push, PRN, 1 dose, Starting on Sun10/21/21 at 1119, Until Discontinu ed, Routine, Nausea and Vomiting (N/V), PACU [facility] NaCl 0.9% (NS) injection 10-21 17:01: 00 Yes PRN, Starting on Sun10/21/21 at 1101, Until Discontinu ed, Routine, Intra-op [facility] morpHINE injection 4 mg 10-20 23:22: 52 Yes 4mg 4 mg, Slow IV Push, Q4HPRN, Starting on Sun10/20/21 at 1722, Until Discontinu ed, Routine, Pain (scale 7-10) [facility] methylpredn isolone sod succ (SOLU-MEDRO L) injection 125 mg 10-20 20:00: 00 10-21 17:53 :24 No 125mg 125 mg, Intravenou s, Q8H, First dose (after last modificati on) on Sun10/20/21 at 1400, Until Discontinu ed, Routine [facility] furosemide (LASIX) injection 40 mg 10-20 18:00: 00 10-20 18:19 :00 No 40mg 40 mg, Slow IV Push, ONCE, 1 dose, On Sun10/20/21 at 1200, Routine [facility] pantoprazol e (PROTONIX) EC tablet 40 mg 10-20 16:45: 00 Yes 40mg 40 mg, Oral, DAILY, First dose on Sun10/20/21 at 1045, Until Discontinu ed, Routine [facility] alum-mag hydroxide-s imeth (MAALOX PLUS / MAG-AL PLUS) 200-200-20 mg/5 mL suspension 30 mL 10-20 16:37: 49 Yes 30mL 30 mL, Oral, Q6HPRN, Starting on Sun10/20/21 at 1037, Until Discontinu ed, Routine, Indigestio n [facility] acetaminoph en (TYLENOL) tablet 650 mg 10-20 16:16: 26 10-21 17:01 :51 No 650mg 650 mg, Oral, Q6HPRN, Starting on Sun10/20/21 at 1016, Until Sun10/21/21 at 1101, Routine, Pain (scale 1-3) [facility] polyethylen e glycol 3350 powder 17 g 10-20 15:00: 00 Yes 17g 17 g, Oral, DAILY, First dose on Sun10/20/21 at 0900, Until Discontinu ed, Routine [facility] docusate (COLACE) capsule 100 mg 10-20 02:00: 00 Yes 100mg 100 mg, Oral, BID, First dose on Sun10/19/21 at 2000, Until Discontinu ed, Routine [facility] hydralAZINE (APRESOLINE ) injection 10 mg 10-19 11:35: 36 Yes 10mg 10 mg, Slow IV Push, Q4HPRN, Starting on Sun10/19/21 at 0535, Until Discontinu ed, Routine, systolic BP >180
In dication: Hypertensi ve Emergency [facility] haloperidol lactate (HALDOL) injection 5 mg 10-19 08:42: 00 10-19 08:44 :00 No 5mg 5 mg, Slow IV Push, ONCE, 1 dose, On Sun10/19/21 at 0245, Routine [facility] pantoprazol e (PROTONIX) injection 40 mg 10-18 01:45: 00 10-20 16:42 :17 No 40mg 40 mg, Slow IV Push, Q24H, First dose on Sun10/17/21 at 1945, Until Discontinu ed [facility] methylpredn isolone sod succ (SOLU-MEDRO L) injection 125 mg 10-17 18:30: 00 10-20 18:10 :46 No 125mg 125 mg, Intravenou s, Q6H, First dose on Sun10/17/21 at 1230, Until Discontinu ed, Routine [facility] ziprasidone (GEODON) injection 10 mg 10-17 18:30: 00 10-17 17:35 :00 No 10mg 10 mg, Intramuscu lar, ONCE, 1 dose, On Sun10/17/21 at 1230, Routine [facility] methylPREDN ISolone sodium succinate (SOLU-MEDRO L) injection 125 mg 10-17 18:00: 00 10-17 18:28 :52 No 125mg 125 mg, Slow IV Push, Q6H, First dose on Sun10/17/21 at 1200, Until Discontinu ed, Routine [facility] thiamine (VITAMIN B1) 100 mg in NaCl 0.9% (NS) piggyback 10-17 17:45: 00 10-19 14:08 :00 No 100mg IV Piggyback, DAILY, 3 doses, First dose on Sun10/17/21 at 1145, Last dose on Sun10/19/21 at 0900, 50 mL [facility] LORazepam (ATIVAN) injection 1 mg 10-17 17:00: 00 10-19 17:33 :38 No 1mg 1 mg, Slow IV Push, Q4HPRN, Starting on Sun10/17/21 at 1100, Until Sun10/19/21 at 1133, Routine, Anxiety, Agitation [facility] ipratropium -albuteroL (DUONEB) 0.5 mg-3 mg(2.5 mg base)/3 mL nebulizer solution 3 mL 10-17 14:00: 00 Yes 3mL 3 mL, Inhalation , Q4H, First dose on Sun10/17/21 at 0800, Until Discontinu ed, Routine [facility] lidocaine 1% (PF) (XYLOCAINE) injection 5 mL 10-17 13:45: 00 10-17 13:45 :00 No 5mL 5 mL, Subcutaneo us, ONCE, 1 dose, On Sun10/17/21 at 0745, Routine [facility] NaCl 0.9% (NS) injection 10 mL 10-17 13:27: 33 Yes 10mL 10 mL, Slow IV Push, PRN, Starting on Sun10/17/21 at 0727, Until Discontinu ed, Routine, line maintenanc e [facility] haloperidol lactate (HALDOL) injection 5 mg 10-17 04:00: 00 10-17 03:03 :00 No 5mg 5 mg, Slow IV Push, ONCE, 1 dose, On Sun10/16/21 at 2200, Routine [facility] busPIRone (BUSPAR) tablet 5 mg 10-17 02:00: 00 Yes 5mg 5 mg, Oral, BID, First dose on Sun10/16/21 at 2000, Until Discontinu ed, Routine [facility] methylpredn isolone sod succ (SOLU-MEDRO L) injection 60 mg 10-16 23:00: 00 10-17 17:25 :30 No 60mg 60 mg, Slow IV Push, Q8H, First dose on Sun10/16/21 at 1700, Until Discontinu ed, Routine [facility] HYDROcodone -acetaminop hen (NORCO 5) 5-325 mg tablet 1 tablet 10-16 19:49: 46 10-21 17:01 :51 No 1{tbl} 1 tablet, Oral, Q6HPRN, Starting on Sun10/16/21 at 1349, Until Sun10/21/21 at 1101, Routine, Pain (scale 4-6) [facility] cefTRIAXone (ROCEPHIN) 1,000 mg in NaCl [...]
Durat ion of Therapy: Other (see Comments) [facility] azithromyci n (ZITHROMAX) 500 mg in [...]
Durat ion of Therapy: Other (see Comments) [facility] dexMEDEtomi dine 400 mcg in 0.9 [...] at maximum allowed dose, contact prescriber .
[facility] LORazepam (ATIVAN) injection 0.5 mg 10-15 21:43: 49 10-17 16:47 :31 No .5mg 0.5 mg, Slow IV Push, [id number], Starting on 10/15/21 at 1543, Until 10/17/21 at 1047, Routine, Anxiety [facility] iopamidol (ISOVUE 370-500 mL) injection 100 mL 10-15 20:30: 00 10-15 19:21 :00 No [id number] 100mL 100 mL, Intravenou s, ONCE, 1 dose, On 10/15/21 at 1430, Routine [facility] enoxaparin (LOVENOX) injection 40 mg 10-15 17:15: 00 10-20 16:42 :18 No 40mg 40 mg, Subcutaneo us, Q24H, First dose on 10/15/21 at 1115, Until Discontinu ed, Routine [facility] levoFLOXaci n in D5W (LEVAQUIN) 750 mg/150 mL Piggyback 750 mg 10-15 17:15: 00 10-16 17:25 :46 No 750mg 750 mg, IV Piggyback, Q24H ABX, First dose on 10/15/21 at 1115, Until Discontinu ed, Administer over 90 Minutes, 150 mL
Reas on for Anti-Infec tive: Empiric Therapy for Suspected Infection& lt;br>Empi leandro Therapy Site: Respirator y
Durat ion of therapy: 72 hours [facility] furosemide (LASIX) injection 20 mg 10-15 14:30: 00 10-15 13:38 :00 No 20mg 20 mg, IV Push, ONCE, 1 dose, On 10/15/21 at 0830, Routine [facility] calcium gluconate 1 g in NaCl 50 mL (ISO-OSM) RTU IV infusion 1 g 10-15 14:15: 00 10-15 13:37 :00 No 1g 1 g, IV Infusion, ONCE, 1 dose, On 10/15/21 at 0815, Routine [facility] insulin regular human (HUMULIN R) injection 10 Units 10-15 14:15: 00 10-15 13:37 :00 No 10U 10 Units, IV Push, ONCE, 1 dose, On 10/15/21 at 0815, Routine [facility] dextrose 50 % in water (D50W) injection 50 mL 10-15 14:15: 00 10-15 13:37 :00 No 50mL 50 mL, Slow IV Push, ONCE, 1 dose, On 10/15/21 at 0815, Routine [facility] heparin (porcine) injection 5,000 Units 10-15 12:00: 00 10-15 16:12 :17 No 5000U 5,000 Units, Subcutaneo us, Q8H, First dose on 10/15/21 at 0600, Until Discontinu ed, Routine [facility] vancomycin 1500 mg in NS 500 mL IV Piggyback RTU 1,500 mg 10-15 10:00: 00 10-15 16:12 :17 No 15mg/kg 1,500 mg (15 mg/kg ?100 kg), IV Piggyback, Q12H ABX, First dose on 10/15/21 at 0400, Until Discontinu ed, Administer over 90 Minutes
Reason for Anti-Infec tive: Documented Infection< br>Docu mented Infection Site: Blood
D uration of Therapy: 7 days [facility] ceFEPIme (MAXIPIME) 1,000 mg in NaCl 0.9% (NS) 50 mL MINI-BAG 10-15 09:15: 00 10-15 16:12 :17 No 1000mg 1,000 mg, IV Piggyback, Q12H ABX, First dose on 10/15/21 at 0315, Until Discontinu ed, Administer over 30 Minutes, 50 mL
Reas on for Anti-Infec tive: Documented Infection< br>Documen britney Infection Site: Blood
D uration of Therapy: 7 days [facility] ipratropium -albuteroL (DUONEB) 0.5 mg-3 mg(2.5 mg base)/3 mL nebulizer solution 3 mL 10-15 08:07: 12 Yes 3mL 3 mL, Inhalation , QIDPRN, Starting on 10/15/21 at 0207, Until Discontinu ed, Routine, Wheezing, Shortness of Breath, Bronchospa sm [facility] morpHINE injection 4 mg 10-15 08:04: 38 10-19 17:33 :44 No 4mg 4 mg, Slow IV Push, Q4HPRN, Starting on 10/15/21 at 0204, Until 10/19/21 at 1133, Routine, Pain (scale 7-10) [facility] methylPREDN ISolone 4 mg tablets - 00:00: 00 01-15 00:00 :00 No Follow schedule on package instructio ns [facility] methocarbam oL 500 mg tablet 10-06 00:00: 00 01-15 00:00 :00 No 500mg Take 1 tablet by mouth. [facility] zolpidem 10 mg tablet - 00:00: 00 01-15 00:00 :00 No 10mg Take 1 tablet by mouth. [facility] ALPRAZolam 1 mg tablet 09-05 00:00: 00 01-15 00:00 :00 No 1mg Take 1 tablet by mouth. [facility] FLUoxetine 40 mg capsule 2020-09 00:00: 00 01-15 00:00 :00 No Take by mouth. [facility] amLODIPine 10 mg tablet 2020-09 00:00: 00 01-15 00:00 :00 No 10mg Take 1 tablet by mouth. [facility] medroxyprog esterone 150 mg/mL intramuscul ar suspension 2020-09 0 00:00: 00 Yes 1mg/mL Dwayne Myers medroxyprog [...] tablet 2020-09 0-14 00:00: 00 Yes 1mg Dwayneomayra Myers metronidazo le 500 mg tablet 2020-0914 00:00: 00 No 1mg metronidazo le 500 mg tablet 2020-0914 00:00: 00 No 1mg metronidazo le 500 mg tablet 2020-0914 00:00: 00 No 1mg metronidazo le 500 mg tablet 2020-0914 00:00: 00 No 1mg Flagyl 500 mg tablet 2020-09 00:00: 00 Yes 1mg Dwayne Myers Flagyl 500 mg tablet 2020-09 00:00: 00 No 1mg Flagyl 500 mg tablet 2020-09 00:00: 00 No 1mg Flagyl 500 mg tablet 2020-09 00:00: 00 No 1mg Flagyl 500 mg tablet 2020-09 00:00: 00 No 1mg medroxyprog esterone 150 mg/mL intramuscul ar suspension 02-24 00:00: 00 Yes 1mg/mL Dwayne Myers medroxyprog esterone 150 mg/mL intramuscul ar suspension 02-24 00:00: 00 No 1mg/mL medroxyprog esterone 150 mg/mL intramuscul ar suspension 02-24 00:00: 00 No 1mg/mL medroxyprog esterone 150 mg/mL intramuscul ar suspension 02-24 00:00: 00 No 1mg/mL medroxyprog esterone 150 mg/mL intramuscul ar suspension 02-24 00:00: 00 No 1mg/mL lurasidone HCl (LATUDA ORAL) 03-19 10:16: 57 Yes Take by mouth. [facility] betamethaso ne valerate 0.1 % ointment 01-24 00:00: 00 12-05 00:00 :00 No SMILEY EXT AA BID [facility] triamterene -hydrochlor othiazide 37.5-25 mg per capsule 01-24 00:00: 00 12-05 00:00 :00 No TK 1 C PO QAM [facility] DEXILANT 60 mg capsule 05-31 00:00: 00 12-05 00:00 :00 No TK 1 C PO QD [facility] proMETHazin e 25 mg tablet 11-29 00:00: 00 12-05 00:00 :00 No TK 1 T PO Q 12 H PRN FOR 30 DAYS [facility] amLODIPine 5 mg tablet 11-21 00:00: 00 12-05 00:00 :00 No TK 1 T PO Q NIGHTLY [facility] HYDROcodone -acetaminop hen 10-325 mg tablet 10-11 00:00: 00 10-24 00:00 :00 No 1{tbl} Take 1 tablet by mouth. [facility] Zoloft 100 mg tablet 12-17 00:00: 00 Yes 15mg Dwayne Niurka Myers trazodone 100 mg tablet 12-17 00:00: 00 Yes 51mg Dwayne Niurka [facility] Zoloft 100 mg tablet 12-17 00:00: 00 [...] 10-16 00:00: 00 12-05 00:00 :00 No [id number] Apply to area(s) two (2) times daily. [facility] Immunizations Ordered Immunization Name Filled Immunization Name Date Status Comments Source SHINGRIX VACCINE SHINGRIX VACCINE 2025-01-08 00:00:00 Completed Dwayne Myers Tdap Tdap 2025-01-08 00:00:00 Completed [facility] Myers Influenza, injectable Influenza, injectable 2024-12-17 00:00:00 [place] [facility] Influenza Virus Vaccine 2024-03-22 17:10:00 Completed [facility] SARS-COV-2 COVID-19 MODERNA 12+ YRS VACCINE 2024-03-22 17:10:00 Completed [facility] Influenza Virus Vaccine 2024-01-16 09:00:00 Completed [facility] SARS-COV-2 COVID-19 MODERNA 12+ YRS VACCINE 2024-01-16 09:00:00 Completed [facility] Influenza Virus Vaccine 2024-01-16 00:00:00 Completed [facility] SARS-COV-2 COVID-19 MODERNA 12+ YRS VACCINE 2024-01-16 00:00:00 Completed [facility] Influenza Virus Vaccine 2023-10-12 19:30:00 Completed [facility] SARS-COV-2 COVID-19 MODERNA 12+ YRS VACCINE 2023-10-12 19:30:00 Completed [facility] Influenza Virus Vaccine 2023-08-23 00:00:00 Completed [facility] SARS-COV-2 COVID-19 MODERNA 12+ YRS VACCINE 2023-08-23 00:00:00 Completed [facility] Influenza Virus Vaccine 2021-11-15 00:00:00 Completed [facility] SARS-COV-2 COVID-19 MODERNA 12+ YRS VACCINE 2021-11-15 00:00:00 Completed [facility] SARS-COV-2 COVID-19 MODERNA VACCINE 2021-03-03 00:00:00 Completed [facility] SARS-COV-2 COVID-19 MODERNA VACCINE 2021-03-03 00:00:00 Completed [facility] SARS-COV-2 COVID-19 MODERNA VACCINE 2021-03-03 00:00:00 Completed [facility] SARS-COV-2 COVID-19 MODERNA VACCINE 2021-03-03 00:00:00 Completed [facility] SARS-COV-2 COVID-19 MODERNA VACCINE 2021-03-03 00:00:00 Completed [facility] SARS-COV-2 COVID-19 MODERNA VACCINE 2021-03-03 00:00:00 Completed [facility] SARS-COV-2 COVID-19 MODERNA 12+ YRS VACCINE 2021-03-03 00:00:00 Completed [facility] SARS-COV-2 COVID-19 MODERNA 12+ YRS VACCINE 2021-03-03 00:00:00 Completed [facility] SARS-COV-2 COVID-19 MODERNA 12+ YRS VACCINE 2021-03-03 00:00:00 Completed [facility] SARS-COV-2 COVID-19 MODERNA 12+ YRS VACCINE 2021-03-03 00:00:00 Completed [facility] SARS-COV-2 COVID-19 MODERNA 12+ YRS VACCINE 2021-03-03 00:00:00 Completed [facility] SARS-COV-2 COVID-19 MODERNA 12+ YRS VACCINE 2021-03-03 00:00:00 Completed [facility] SARS-COV-2 COVID-19 MODERNA 12+ YRS VACCINE 2021-03-03 00:00:00 Completed [facility] SARS-COV-2 COVID-19 MODERNA 12+ YRS VACCINE 2021-03-03 00:00:00 Completed [facility] SARS-COV-2 COVID-19 MODERNA 12+ YRS VACCINE 2021-03-03 00:00:00 Completed SARS-COV-2 COVID-19 MODERNA VACCINE 2021-03-03 00:00:00 Completed [facility] SARS-COV-2 COVID-19 MODERNA VACCINE 2021-03-03 00:00:00 Completed [facility] SARS-COV-2 COVID-19 MODERNA VACCINE 2021-03-03 00:00:00 Completed [facility] SARS-COV-2 COVID-19 MODERNA VACCINE 2021-03-03 00:00:00 Completed [facility] SARS-COV-2 COVID-19 MODERNA VACCINE 2021-03-03 00:00:00 Completed [facility] SARS-COV-2 COVID-19 MODERNA VACCINE 2021-03-03 00:00:00 Completed [facility] SARS-COV-2 COVID-19 MODERNA VACCINE 2021-03-03 00:00:00 Completed [facility] SARS-COV-2 COVID-19 MODERNA VACCINE 2021-03-03 00:00:00 Completed [facility] SARS-COV-2 COVID-19 MODERNA VACCINE 2021-03-03 00:00:00 Completed [facility] SARS-COV-2 COVID-19 MODERNA VACCINE 2021-03-03 00:00:00 Completed [facility] SARS-COV-2 COVID-19 MODERNA VACCINE 2021-03-03 00:00:00 Completed [facility] SARS-COV-2 COVID-19 MODERNA VACCINE 2021-03-03 00:00:00 Completed [facility] SARS-COV-2 COVID-19 MODERNA VACCINE 2021-02-01 00:00:00 Completed [facility] SARS-COV-2 COVID-19 MODERNA VACCINE 2021-02-01 00:00:00 Completed [facility] SARS-COV-2 COVID-19 MODERNA VACCINE 2021-02-01 00:00:00 Completed [facility] SARS-COV-2 COVID-19 MODERNA VACCINE 2021-02-01 00:00:00 Completed [facility] SARS-COV-2 COVID-19 MODERNA VACCINE 2021-02-01 00:00:00 Completed [facility] SARS-COV-2 COVID-19 MODERNA VACCINE 2021-02-01 00:00:00 Completed [facility] SARS-COV-2 COVID-19 MODERNA 12+ YRS VACCINE 2021-02-01 00:00:00 Completed [facility] SARS-COV-2 COVID-19 MODERNA 12+ YRS VACCINE 2021-02-01 00:00:00 Completed [facility] SARS-COV-2 COVID-19 MODERNA 12+ YRS VACCINE 2021-02-01 00:00:00 Completed [facility] SARS-COV-2 COVID-19 MODERNA 12+ YRS VACCINE 2021-02-01 00:00:00 Completed [facility] SARS-COV-2 COVID-19 MODERNA 12+ YRS VACCINE 2021-02-01 00:00:00 Completed [facility] SARS-COV-2 COVID-19 MODERNA 12+ YRS VACCINE 2021-02-01 00:00:00 Completed [facility] SARS-COV-2 COVID-19 MODERNA 12+ YRS VACCINE 2021-02-01 00:00:00 Completed [facility] SARS-COV-2 COVID-19 MODERNA 12+ YRS VACCINE 2021-02-01 00:00:00 Completed [facility] SARS-COV-2 COVID-19 MODERNA VACCINE 2021-02-01 00:00:00 Completed [facility] SARS-COV-2 COVID-19 MODERNA VACCINE 2021-02-01 00:00:00 Completed [facility] SARS-COV-2 COVID-19 MODERNA VACCINE 2021-02-01 00:00:00 Completed [facility] SARS-COV-2 COVID-19 MODERNA VACCINE 2021-02-01 00:00:00 Completed [facility] SARS-COV-2 COVID-19 MODERNA VACCINE 2021-02-01 00:00:00 Completed [facility] SARS-COV-2 COVID-19 MODERNA VACCINE 2021-02-01 00:00:00 Completed [facility] SARS-COV-2 COVID-19 MODERNA VACCINE 2021-02-01 00:00:00 Completed [facility] SARS-COV-2 COVID-19 MODERNA VACCINE 2021-02-01 00:00:00 Completed [facility] SARS-COV-2 COVID-19 MODERNA VACCINE 2021-02-01 00:00:00 Completed [facility] SARS-COV-2 COVID-19 MODERNA VACCINE 2021-02-01 00:00:00 Completed [facility] SARS-COV-2 COVID-19 MODERNA VACCINE 2021-02-01 00:00:00 Completed [facility] SARS-COV-2 COVID-19 MODERNA VACCINE 2021-02-01 00:00:00 Completed [facility] Influenza, seasonal, inj Influenza, seasonal, inj 2020-09-02 00:00:00 Completed [facility] Influenza, seasonal, inj 2020-09-02 00:00:00 Completed Influenza, seasonal, inj 2020-09-02 00:00:00 Completed Influenza, seasonal, inj 2020-09-02 00:00:00 Completed Influenza, seasonal, inj 2020-09-02 00:00:00 Completed Influenza Virus Vaccine 2007-07-02 00:00:00 Completed [facility] Influenza Virus Vaccine 2007-07-02 00:00:00 Completed [facility] Influenza Virus Vaccine 2007-07-02 00:00:00 Completed [facility] Influenza Virus Vaccine 2007-07-02 00:00:00 Completed [facility] Influenza Virus Vaccine 2007-07-02 00:00:00 Completed [facility] Influenza Virus Vaccine 2007-07-02 00:00:00 Completed [facility] Influenza Virus Vaccine 2007-07-02 00:00:00 Completed [facility] Influenza Virus Vaccine 2007-07-02 00:00:00 Completed [facility] Influenza Virus Vaccine 2007-07-02 00:00:00 Completed [facility] Influenza Virus Vaccine 2007-07-02 00:00:00 Completed [facility] Influenza Virus Vaccine 2007-07-02 00:00:00 Completed [facility] Influenza Virus Vaccine 2007-07-02 00:00:00 Completed [facility] Influenza Virus Vaccine 2007-07-02 00:00:00 Completed [facility] Influenza Virus Vaccine 2007-07-02 00:00:00 Completed [facility] Influenza Virus Vaccine 2007-07-02 00:00:00 Completed [facility] Influenza Virus Vaccine 2007-07-02 00:00:00 Completed [facility] Influenza Virus Vaccine 2007-07-02 00:00:00 Completed [facility] Influenza Virus Vaccine 2007-07-02 00:00:00 Completed [facility] Influenza Virus Vaccine 2007-07-02 00:00:00 Completed [facility] Influenza Virus Vaccine 2007-07-02 00:00:00 Completed [facility] Influenza Virus Vaccine 2007-07-02 00:00:00 Completed [facility] Influenza Virus Vaccine 2007-07-02 00:00:00 Completed [facility] Influenza Virus Vaccine 2007-07-02 00:00:00 Completed [facility] Influenza Virus Vaccine 2007-07-02 00:00:00 Completed [facility] Influenza Virus Vaccine 2007-07-02 00:00:00 Completed [facility] Influenza Virus Vaccine 2007-07-02 00:00:00 Completed [facility] Influenza Virus Vaccine 2007-07-02 00:00:00 Completed [facility] Vital Signs Vital Name Observation Time Observation Value Comments S eda Systolic blood pressure 2025-04-01 19:30:00 109 mm[Hg] [facility] Diastolic blood pressure 2025-04-01 19:30:00 70 mm[Hg] [facility] Heart rate 2025-04-01 19:30:00 88 /min [facility] Respiratory rate 2025-04-01 19:30:00 16 /min [facility] Body height 2025-04-01 19:30:00 162.6 cm [facility] Body weight 2025-04-01 19:30:00 80.015 kg [facility] BMI 2025-04-01 19:30:00 30.28 kg/m2 [facility] Oxygen saturation in Arterial blood by Pulse oximetry 2025-04-01 19:30:00 99 /min [facility] Systolic blood pressure 2024-10-22 19:55:00 105 mm[Hg] [facility] Diastolic blood pressure 2024-10-22 19:55:00 65 mm[Hg] [facility] Heart rate 2024-10-22 19:55:00 61 /min [facility] Body temperature 2024-10-22 19:55:00 35.94 Carleen [facility] Respiratory rate 2024-10-22 19:55:00 18 /min [facility] Body height 2024-10-22 19:55:00 160 cm [facility] Body weight 2024-10-22 19:55:00 90.266 kg [facility] BMI 2024-10-22 19:55:00 35.25 kg/m2 [facility] Oxygen saturation in Arterial blood by Pulse oximetry 2024-10-22 19:55:00 100 /min [facility] Systolic blood pressure 2024-09-12 22:03:00 124 mm[Hg] [facility] Diastolic blood pressure 2024-09-12 22:03:00 82 mm[Hg] [facility] Heart rate 2024-09-12 22:03:00 67 /min [facility] Body temperature 2024-09-12 22:03:00 36.67 Carleen [facility] Respiratory rate 2024-09-12 22:03:00 18 /min [facility] Oxygen saturation in Arterial blood by Pulse oximetry 2024-09-12 22:03:00 96 /min [facility] Body height 2024-09-11 06:42:00 160 cm [facility] Body weight 2024-09-11 06:42:00 90.9 kg [facility] BMI 2024-09-11 06:42:00 35.50 kg/m2 [facility] Systolic blood pressure 2024-07-08 04:45:00 146 mm[Hg] [facility] Diastolic blood pressure 2024-07-08 04:45:00 99 mm[Hg] [facility] Heart rate 2024-07-08 04:45:00 71 /min [facility] Body temperature 2024-07-08 04:45:00 36.72 Carleen [facility] Respiratory rate 2024-07-08 04:45:00 18 /min [facility] Oxygen saturation in Arterial blood by Pulse oximetry 2024-07-08 04:45:00 99 /min [facility] Body height 2024-07-08 01:33:00 160 cm [facility] Body weight 2024-07-08 01:33:00 89.812 kg [facility] BMI 2024-07-08 01:33:00 35.07 kg/m2 [facility] Height 2024-06-19 06:59:00 160.02 CM Weight 2024-06-19 06:59:00 89.5 KG Height 2024-06-05 06:56:00 160.02 CM Weight 2024-06-05 06:56:00 85.7 KG Height 2024-06-05 06:56:00 160.02 CM Weight 2024-06-05 06:56:00 85.7 KG Systolic blood pressure 2024-03-23 01:00:00 151 mm[Hg] [facility] Diastolic blood pressure 2024-03-23 01:00:00 99 mm[Hg] [facility] Heart rate 2024-03-23 01:00:00 79 /min [facility] Respiratory rate 2024-03-23 01:00:00 16 /min [facility] Oxygen saturation in Arterial blood by Pulse oximetry 2024-03-23 01:00:00 99 /min [facility] Body temperature 2024-03-22 22:07:00 37 Carleen [facility] Body height 2024-03-22 22:07:00 160 cm [facility] Body weight 2024-03-22 22:07:00 88.451 kg [facility] BMI 2024-03-22 22:07:00 34.54 kg/m2 [facility] Systolic blood pressure 2024-03-22 14:35:00 127 mm[Hg] [facility] Diastolic blood pressure 2024-03-22 14:35:00 80 mm[Hg] [facility] Heart rate 2024-03-22 14:35:00 77 /min [facility] Body temperature 2024-03-22 14:35:00 36.83 Carleen [facility] Respiratory rate 2024-03-22 14:35:00 20 /min [facility] Oxygen saturation in Arterial blood by Pulse oximetry 2024-03-22 14:35:00 99 /min [facility] Body height 2024-03-22 11:27:00 160 cm [facility] Body weight 2024-03-22 11:27:00 88.724 kg [facility] BMI 2024-03-22 11:27:00 34.65 kg/m2 [facility] Systolic blood pressure 2024-01-16 14:22:00 130 mm[Hg] [facility] Diastolic blood pressure 2024-01-16 14:22:00 83 mm[Hg] [facility] Heart rate 2024-01-16 14:22:00 73 /min [facility] Respiratory rate 2024-01-16 14:22:00 20 /min [facility] Body height 2024-01-16 14:22:00 160 cm [facility] Body weight 2024-01-16 14:22:00 81.557 kg [facility] BMI 2024-01-16 14:22:00 31.85 kg/m2 [facility] Oxygen saturation in Arterial blood by Pulse oximetry 2024-01-16 14:22:00 100 /min [facility] Systolic blood pressure 2023-10-13 01:23:00 153 mm[Hg] [facility] Diastolic blood pressure 2023-10-13 01:23:00 109 mm[Hg] [facility] Heart rate 2023-10-13 01:21:00 75 /min [facility] Body temperature 2023-10-13 01:21:00 37 Carleen [facility] Respiratory rate 2023-10-13 01:21:00 18 /min [facility] Body height 2023-10-13 01:21:00 160 cm [facility] Body weight 2023-10-13 01:21:00 83.008 kg [facility] BMI 2023-10-13 01:21:00 32.42 kg/m2 [facility] Oxygen saturation in Arterial blood by Pulse oximetry 2023-10-13 01:21:00 100 /min [facility] Weight 2023-06-03 21:47:00 90.1 KG Weight 2023-06-03 21:47:00 90.1 KG Height 2023-05-04 15:00:00 162.56 CM Weight 2023-05-04 15:00:00 85 KG Height 2023-04-14 22:00:00 160.02 CM Weight 2023-04-14 22:00:00 86.45 KG Height 2023-02-08 07:40:00 160.02 CM Weight 2023-02-08 07:40:00 91.6 KG Height 2022-12-11 20:32:00 13.46 CM Weight 2022-12-11 20:32:00 86.63 KG Systolic blood pressure 2022-12-11 00:01:00 163 mm[Hg] [facility] Diastolic blood pressure 2022-12-11 00:01:00 96 mm[Hg] [facility] Heart rate 2022-12-11 00:01:00 79 /min [facility] Body temperature 2022-12-11 00:01:00 37.22 Carleen [facility] Respiratory rate 2022-12-11 00:01:00 20 /min [facility] Body height 2022-12-11 00:01:00 160 cm [facility] Body weight 2022-12-11 00:01:00 87 kg [facility] BMI 2022-12-11 00:01:00 33.98 kg/m2 [facility] Oxygen saturation in Arterial blood by Pulse oximetry 2022-12-11 00:01:00 99 /min [facility] Systolic blood pressure 2022-11-05 21:43:00 123 mm[Hg] [facility] Diastolic blood pressure 2022-11-05 21:43:00 84 mm[Hg] [facility] Heart rate 2022-11-05 21:43:00 59 /min [facility] Body temperature 2022-11-05 21:43:00 36.44 Carleen [facility] Oxygen saturation in Arterial blood by Pulse oximetry 2022-11-05 21:43:00 97 /min [facility] Respiratory rate 2022-11-05 17:22:00 17 /min [facility] Body height 2022-11-05 03:54:00 160 cm [facility] Body weight 2022-11-05 03:54:00 87.091 kg [facility] BMI 2022-11-05 03:54:00 34.01 kg/m2 [facility] Height 2022-08-17 11:26:00 Weight 2022-08-17 11:26:00 Systolic blood pressure 2022-07-27 13:18:00 146 mm[Hg] [facility] Diastolic blood pressure 2022-07-27 13:18:00 91 mm[Hg] [facility] Heart rate 2022-07-27 13:18:00 78 /min [facility] Body temperature 2022-07-27 13:18:00 36.44 Carleen [facility] Respiratory rate 2022-07-27 13:18:00 18 /min [facility] Oxygen saturation in Arterial blood by Pulse oximetry 2022-07-27 13:18:00 94 /min [facility] Body height 2022-07-26 05:22:00 160 cm [facility] Body weight 2022-07-26 05:22:00 97.977 kg [facility] BMI 2022-07-26 05:22:00 38.26 kg/m2 [facility] Height 2022-07-20 13:40:00 160.02 CM Weight 2022-07-20 13:40:00 89.81 KG Height 2022-07-20 11:04:00 160.02 CM Weight 2022-07-20 11:04:00 81.64 KG Systolic blood pressure 2022-06-26 00:42:00 132 mm[Hg] [facility] Diastolic blood pressure 2022-06-26 00:42:00 81 mm[Hg] [facility] Heart rate 2022-06-26 00:42:00 104 /min [facility] Body temperature 2022-06-26 00:42:00 36.67 Carleen [facility] Respiratory rate 2022-06-26 00:42:00 18 /min [facility] Oxygen saturation in Arterial blood by Pulse oximetry 2022-06-26 00:42:00 96 /min [facility] Body height 2022-06-25 00:54:00 160 cm [facility] Body weight 2022-06-25 00:54:00 98.884 kg [facility] BMI 2022-06-25 00:54:00 38.62 kg/m2 [facility] Height 2022-06-23 19:31:00 160.02 CM Weight 2022-06-23 19:31:00 86.18 KG Weight 2022-06-21 20:00:00 98.88 KG Height 2022-06-12 15:55:00 160.02 CM Weight 2022-06-12 15:55:00 81.64 KG Systolic blood pressure 2022-06-01 03:00:00 167 mm[Hg] [facility] Diastolic blood pressure 2022-06-01 03:00:00 102 mm[Hg] [facility] Heart rate 2022-06-01 03:00:00 94 /min [facility] Respiratory rate 2022-06-01 03:00:00 20 /min [facility] Oxygen saturation in Arterial blood by Pulse oximetry 2022-06-01 03:00:00 98 /min [facility] Body height 2022-06-01 01:17:00 160 cm [facility] Body weight 2022-06-01 01:17:00 89.812 kg [facility] BMI 2022-06-01 01:17:00 35.07 kg/m2 [facility] Height 2022-04-05 15:26:00 160.02 CM Weight 2022-04-05 15:26:00 90.26 KG Systolic blood pressure 2022-02-26 13:59:00 136 mm[Hg] [facility] Diastolic blood pressure 2022-02-26 13:59:00 101 mm[Hg] [facility] Heart rate 2022-02-26 13:59:00 79 /min [facility] Body temperature 2022-02-26 13:59:00 36.78 Carleen [facility] Respiratory rate 2022-02-26 13:59:00 20 /min [facility] Oxygen saturation in Arterial blood by Pulse oximetry 2022-02-26 13:59:00 100 /min [facility] Body height 2022-02-26 04:37:00 160 cm [facility] Body weight 2022-02-26 04:37:00 92.08 kg [facility] BMI 2022-02-26 04:37:00 35.96 kg/m2 [facility] Systolic blood pressure 2022-02-23 06:00:00 115 mm[Hg] [facility] Diastolic blood pressure 2022-02-23 06:00:00 83 mm[Hg] [facility] Heart rate 2022-02-23 06:00:00 62 /min [facility] Respiratory rate 2022-02-23 06:00:00 18 /min [facility] Oxygen saturation in Arterial blood by Pulse oximetry 2022-02-23 06:00:00 97 /min [facility] Body temperature 2022-02-23 02:45:00 37.83 Carleen [facility] Body height 2022-02-23 02:45:00 160 cm [facility] Body weight 2022-02-23 02:45:00 92.08 kg [facility] BMI 2022-02-23 02:45:00 35.96 kg/m2 [facility] Systolic blood pressure 2022-01-29 21:54:12 118 mm[Hg] [facility] Diastolic blood pressure 2022-01-29 21:54:12 74 mm[Hg] [facility] Heart rate 2022-01-29 21:54:12 98 /min [facility] Respiratory rate 2022-01-29 21:54:12 24 /min [facility] Oxygen saturation in Arterial blood by Pulse oximetry 2022-01-29 21:54:12 98 /min [facility] Body temperature 2022-01-29 18:53:00 37 Carleen [facility] Body height 2022-01-29 18:53:00 160 cm [facility] Body weight 2022-01-29 18:53:00 90.719 kg [facility] BMI 2022-01-29 18:53:00 35.43 kg/m2 [facility] Systolic blood pressure 2022-01-29 15:01:00 138 mm[Hg] [facility] Diastolic blood pressure 2022-01-29 15:01:00 82 mm[Hg] [facility] Heart rate 2022-01-29 15:01:00 88 /min [facility] Respiratory rate 2022-01-29 15:01:00 15 /min [facility] Oxygen saturation in Arterial blood by Pulse oximetry 2022-01-29 15:01:00 96 /min [facility] Body temperature 2022-01-29 12:58:00 36.61 [facility] Body weight 2022-01-29 12:58:00 81.647 kg [facility] BMI 2022-01-29 12:58:00 31.89 kg/m2 [facility] Height 2022-01-05 08:28:00 160.02 CM Weight 2022-01-05 08:28:00 81.64 KG Systolic blood pressure 2022-01-03 04:43:12 152 mm[Hg] [facility] Diastolic blood pressure 2022-01-03 04:43:12 112 mm[Hg] [facility] Body temperature 2022-01-03 04:43:12 37.28 [facility] Respiratory rate 2022-01-03 04:43:12 17 /min [facility] Heart rate 2022-01-03 04:42:33 88 /min [facility] Oxygen saturation in Arterial blood by Pulse oximetry 2022-01-03 04:42:33 97 /min [facility] Body height 2022-01-03 02:36:00 160 cm [facility] Body weight 2022-01-03 02:36:00 81.647 kg [facility] BMI 2022-01-03 02:36:00 31.89 kg/m2 [facility] Body temperature 2021-12-07 13:30:00 37.17 [facility] Respiratory rate 2021-12-07 13:30:00 23 /min [facility] Oxygen saturation in Arterial blood by Pulse oximetry 2021-12-07 13:14:00 97 /min [facility] Systolic blood pressure 2021-12-07 09:00:00 157 mm[Hg] [facility] Diastolic blood pressure 2021-12-07 09:00:00 99 mm[Hg] [facility] Heart rate 2021-12-07 09:00:00 82 /min [facility] Body weight 2021-12-07 08:10:00 95.709 kg [facility] BMI 2021-12-07 08:10:00 37.38 kg/m2 [facility] Body height 2021-12-06 06:30:00 160 cm [facility] Systolic blood pressure 2021-12-05 09:10:00 126 mm[Hg] [facility] Diastolic blood pressure 2021-12-05 09:10:00 71 mm[Hg] [facility] Heart rate 2021-12-05 09:10:00 85 /min [facility] Body temperature 2021-12-05 09:10:00 36.83 Carleen [facility] Respiratory rate 2021-12-05 09:10:00 18 /min [facility] Oxygen saturation in Arterial blood by Pulse oximetry 2021-12-05 09:10:00 96 /min [facility] Body height 2021-12-03 23:16:00 160 cm [facility] Body weight 2021-12-03 23:16:00 81.647 kg [facility] BMI 2021-12-03 23:16:00 31.89 kg/m2 [facility] Systolic blood pressure 2021-11-11 18:12:00 152 mm[Hg] [facility] Diastolic blood pressure 2021-11-11 18:12:00 93 mm[Hg] [facility] Heart rate 2021-11-11 18:12:00 108 /min [facility] Body temperature 2021-11-11 18:12:00 37.06 Carleen [facility] Respiratory rate 2021-11-11 18:12:00 20 /min [facility] Oxygen saturation in Arterial blood by Pulse oximetry 2021-11-11 18:12:00 95 /min [facility] Body height 2021-11-10 17:22:00 160 cm [facility] Body weight 2021-11-10 17:22:00 91 kg [facility] BMI 2021-11-10 17:22:00 35.54 kg/m2 [facility] Systolic blood pressure 2021-10-24 17:05:00 143 mm[Hg] [facility] Diastolic blood pressure 2021-10-24 17:05:00 90 mm[Hg] [facility] Heart rate 2021-10-24 17:05:00 103 /min [facility] Body temperature 2021-10-24 17:05:00 36.22 Carleen [facility] Respiratory rate 2021-10-24 17:05:00 18 /min [facility] Oxygen saturation in Arterial blood by Pulse oximetry 2021-10-24 17:05:00 95 /min [facility] Body weight 2021-10-22 10:08:00 71.215 kg bed scale [facility] BMI 2021-10-22 10:08:00 28.72 kg/m2 [facility] Body height 2021-10-17 14:00:00 157.5 cm [facility] Systolic blood pressure 2021-10-21 15:36:00 129 mm[Hg] [facility] Diastolic blood pressure 2021-10-21 15:36:00 82 mm[Hg] [facility] Heart rate 2021-10-21 15:36:00 100 /[facility] 2021-10-21 15:36:00 20 /min [facility] Oxygen saturation in Arterial blood by Pulse oximetry 2021-10-21 15:36:00 100 /min [facility] Body temperature 2021-10-21 13:07:00 36.83 Carleen [facility] Body height 2021-10-17 14:00:00 157.5 cm [facility] Body weight 2021-10-17 14:00:00 99.791 kg [facility] BMI 2021-10-17 14:00:00 28.72 kg/m2 [facility] BP Systolic 2025-03-26 10:30:00 118 mm[Hg] Estuardo Myers BP Diastolic 2025-03-26 10:30:00 82 mm[Hg] Madan Myers Weight Measured 2025-03-26 10:30:00 172.60 pounds Dwayne Myers Height Measured 2025-03-26 10:30:00 65.10 inches Dwayne F Louis Body Temperature 2025-03-26 10:30:00 98.20 degrees Dwayne F Louis Heart Rate 2025-03-26 10:30:00 84.00 /min Deja en F Louis Respiratory Rate 2025-03-26 10:30:00 18.00 /min Wdayne F Louis BP Systolic 2025-03-23 14:55:00 164 mm[Hg] Step hen F Louis BP Diastolic 2025-03-23 14:55:00 109 mm[Hg] Madan phen F Louis Weight Measured 2025-03-23 14:55:00 171.80 pounds Dwayne F Louis Height Measured 2025-03-23 14:55:00 65.10 inches Dwayne F Louis Body Temperature 2025-03-23 14:55:00 98.30 degrees Dwayne F Louis Heart Rate 2025-03-23 14:55:00 92.00 /min Deja en F Louis Respiratory Rate 2025-03-23 14:55:00 Dwayne F Louis BP Systolic 2025-03-11 13:22:00 129 mm[Hg] Step hen F Louis BP Diastolic 2025-03-11 13:22:00 80 mm[Hg] Madan phen F Louis Weight Measured 2025-03-11 13:22:00 177.40 pounds Dwayne F Louis Height Measured 2025-03-11 13:22:00 65.10 inches Dwayne F Louis Body Temperature 2025-03-11 13:22:00 98.00 degrees Dwayne F Louis Heart Rate 2025-03-11 13:22:00 94.00 /min Deja en F Louis Respiratory Rate 2025-03-11 13:22:00 18.00 /min Dwayne F Louis BP Systolic 2025-02-11 10:07:00 158 mm[Hg] Step hen F Louis BP Diastolic 2025-02-11 10:07:00 97 mm[Hg] Madan phen F Louis Weight Measured 2025-02-11 10:07:00 178.80 pounds Dwayne F Louis Height Measured 2025-02-11 10:07:00 65.10 inches Dwayne F Louis Body Temperature 2025-02-11 10:07:00 99.00 degrees Dwayne F Louis Heart Rate 2025-02-11 10:07:00 105.00 /min Step hen F Louis Respiratory Rate 2025-02-11 10:07:00 17.00 /min Dwayne F Louis BP Systolic 2025-01-27 15:14:00 157 mm[Hg] Step hen F Louis BP Diastolic 2025-01-27 15:14:00 107 mm[Hg] Madan phen F Louis Weight Measured 2025-01-27 15:14:00 182.00 pounds Dwayne F Louis Height Measured 2025-01-27 15:14:00 65.10 inches Dwayne F Louis Body Temperature 2025-01-27 15:14:00 97.80 degrees Dwayne F Louis Heart Rate 2025-01-27 15:14:00 75.00 /min Deja en F Louis Respiratory Rate 2025-01-27 15:14:00 17.00 /min Dwayne F Louis BP Systolic 2025-01-21 16:37:00 161 mm[Hg] Step hen F Louis BP Diastolic 2025-01-21 16:37:00 93 mm[Hg] Madan phen F Louis Weight Measured 2025-01-21 16:37:00 185.00 pounds Dwayne F Louis Height Measured 2025-01-21 16:37:00 65.10 inches Dwayne F Louis Body Temperature 2025-01-21 16:37:00 98.10 degrees Dwayne F Louis Heart Rate 2025-01-21 16:37:00 82.00 /min Deja en F Louis Respiratory Rate 2025-01-21 16:37:00 18.00 /min Dwayne F Louis BP Systolic 2025-01-08 11:04:00 131 mm[Hg] Step hen F Louis BP Diastolic 2025-01-08 11:04:00 83 mm[Hg] Madan phen F Louis Weight Measured 2025-01-08 11:04:00 185.80 pounds Dwayne F Louis Height Measured 2025-01-08 11:04:00 65.10 inches Dwayne F Louis Body Temperature 2025-01-08 11:04:00 98.20 degrees Dwayne F Louis Heart Rate 2025-01-08 11:04:00 81.00 /min Deja en F Louis Respiratory Rate 2025-01-08 11:04:00 18.00 /min Dwayne F Louis BP Systolic 2024-12-19 10:31:00 155 mm[Hg] Step hen F Louis BP Diastolic 2024-12-19 10:31:00 92 mm[Hg] Madan phen F Louis Weight Measured 2024-12-19 10:31:00 188.60 pounds Dwayne F Louis Height Measured 2024-12-19 10:31:00 65.10 inches Dwayne F Louis Body Temperature 2024-12-19 10:31:00 97.90 degrees Dwayne F Louis Heart Rate 2024-12-19 10:31:00 76.00 /min Deja en F Louis Respiratory Rate 2024-12-19 10:31:00 18.00 /min Dwayne F Louis BP Systolic 2024-12-18 10:44:00 149 mm[Hg] Step hen F Louis BP Diastolic 2024-12-18 10:44:00 104 mm[Hg] Madan phen F Louis Weight Measured 2024-12-18 10:44:00 188.80 pounds Dwayne F Louis Height Measured 2024-12-18 10:44:00 65.10 inches Dwayne F Louis Body Temperature 2024-12-18 10:44:00 97.90 degrees Dwayne F Louis Heart Rate 2024-12-18 10:44:00 96.00 /min Deja en F Louis Respiratory Rate 2024-12-18 10:44:00 16.00 /min Dwayne F Louis BP Systolic 2024-11-26 11:31:00 169 mm[Hg] Step hen F Louis BP Diastolic 2024-11-26 11:31:00 112 mm[Hg] Madan phen F Louis Weight Measured 2024-11-26 11:31:00 185.20 pounds Dwayne F Louis Height Measured 2024-11-26 11:31:00 65.10 inches Dwayne F Louis Body Temperature 2024-11-26 11:31:00 98.20 degrees Dwayne F Louis Heart Rate 2024-11-26 11:31:00 83.00 /min Deja en F Louis Respiratory Rate 2024-11-26 11:31:00 18.00 /min Dwayne F Louis BP Systolic 2024-11-05 15:53:00 163 mm[Hg] Step hen F Louis BP Diastolic 2024-11-05 15:53:00 104 mm[Hg] Madan phen F Louis Weight Measured 2024-11-05 15:53:00 185.40 pounds Dwayne F Louis Height Measured 2024-11-05 15:53:00 65.10 inches Dwayne F Louis Body Temperature 2024-11-05 15:53:00 97.90 degrees Dwayne F Louis Heart Rate 2024-11-05 15:53:00 116.00 /min Step hen F Louis Respiratory Rate 2024-11-05 15:53:00 18.00 /min Dwayne F Louis BP Systolic 2024-09-17 12:02:00 193 mm[Hg] Step hen F Louis BP Diastolic 2024-09-17 12:02:00 109 mm[Hg] Madan phen F Louis Weight Measured 2024-09-17 12:02:00 196.80 pounds Dwayne F Louis Height Measured 2024-09-17 12:02:00 65.10 inches Dwayne F Louis Body Temperature 2024-09-17 12:02:00 98.70 degrees Dwayne F Louis Heart Rate 2024-09-17 12:02:00 52.00 /min Deja en F Louis Respiratory Rate 2024-09-17 12:02:00 18.00 /min Dwayne F Louis BP Systolic 2024-09-10 14:25:00 142 mm[Hg] Step hen F Louis BP Diastolic 2024-09-10 14:25:00 82 mm[Hg] Madan phen F Louis Weight Measured 2024-09-10 14:25:00 197.20 pounds Dwayne F Louis Height Measured 2024-09-10 14:25:00 65.10 inches Dwayne F Louis Body Temperature 2024-09-10 14:25:00 98.10 degrees Dwayne F Louis Heart Rate 2024-09-10 14:25:00 100.00 /min Step hen F Louis Respiratory Rate 2024-09-10 14:25:00 18.00 /min Dwayne F Louis BP Systolic 2024-07-08 15:04:00 173 mm[Hg] Step [...] 2023-12-10 15:33:00 100 mm[Hg] Madan phen F Luois Weight Measured 2023-12-10 15:33:00 178.80 pounds Dwayne [...] Louis Respiratory Rate 2023-07-10 14:56:00 18.00 /min Dwayneomayra Myers BP Systolic 2023-06-26 11:11:00 157 mm[Hg] Step hen Niurka Myers BP Diastolic 2023-06-26 11:11:00 98 mm[Hg] Madan Myers Weight Measured 2023-06-26 11:11:00 184.80 pounds Dwayne Myers Height Measured 2023-06-26 11:11:00 65.10 inches Dwayne Myers Body Temperature 2023-06-26 11:11:00 97.40 degrees Dwayne Niurka Myers Heart Rate 2023-06-26 11:11:00 67.00 /min Deja en Niurka Myers Respiratory Rate 2023-06-26 11:11:00 Dwayne Myers [...] Date / Time Performed Performing Clinician Source PHOSPHORUS 2024-09-12 12:00:00 Neto Shaffer [facility] MAGNESIUM 2024-09-12 12:00:00 Neto Shaffer [facility] BASIC METABOLIC PANEL (NA, K, CL, CO2, GLUCOSE, BUN, CREATININE, CA) 2024-09-12 12:00:00 Neto Shaffer [facility] CBC WITH DIFF 2024-09-12 11:21:00 Neto Shaffer [facility] CT ANGIOGRAM CHEST 2024-09-11 20:34:00 Sugar Lopez [facility] XR SHOULDER 2+ VW RIGHT 2024-09-11 15:46:25 Harjinder Lopez [facility] TRANSTHORACIC ECHO (TTE) COMPLETE W/ CONTRAST 2024-09-11 15:36:00 Deena [facility] PHOSPHORUS 2024-09-11 09:44:00 Deena [facility] MAGNESIUM 2024-09-11 09:44:00 Deena [facility] HEPATIC FUNCTION PANEL (76001) (ALB,T.PRO,BILI T,BU/BC,ALT,AST,ALK PHOS) 2024-09-11 09:44:00 Deena [facility] BASIC METABOLIC PANEL (NA, K, CL, CO2, GLUCOSE, BUN, CREATININE, CA) 2024-09-11 09:44:00 Deena [facility] LIPID PANEL ([id number])(TOTAL CHOLESTEROL, TRIGLYCERIDES, HDL) 2024-09-11 09:44:00 Deena [facility] CBC WITH DIFF 2024-09-11 09:44[facility] 2024-09-11 09:44:00 Eric Shaffer [facility] TROPONIN I 2024-09-11 07:00:00 Deena [facility] URINALYSIS 2024-09-11 05:13:00 [facility] TUBE [facility]INE CULTURE 2024-09-11 05:13:00 Yris Dubose [facility] TROPONIN I 2024-09-11 05:06:00 [facility] LACTIC ACID WHOLE BLOOD 2024-09-11 05:01:00 Sebastián Brush [facility] CT CHEST PULMONARY ANGIOGRAM 2024-09-11 03:14:19 Maury Brush [facility] XR CHEST 1 VW 2024-09-11 02:42:00 [facility] AMYLASE 2024-09-11 02:23:00 [facility] 2024-09-11 02:23:00 [facility] TROPONIN I 2024-09-11 02:23:00 [facility] THYROID STIMULATING HORMONE 2024-09-11 02:23:00 Neto Shaffer [facility] COMP. METABOLIC PANEL ([id number]) 2024-09-11 02:23:00 Maury Brush [facility] CBC WITH DIFF 2024-09-11 02:23:[address] [facility] GLYCOSYLATED HEMOGLOBIN (A1C) 2024-09-11 02:23:00 Neto Shaffer [facility] N-TERMINAL PRO-BNP 2024-09-11 02:23:00 Sonia Brush [facility] LACTIC ACID WHOLE BLOOD 2024-09-11 02:23:00 Sebastián Brush [facility] EKG-12 LEAD 2024-07-08 04:31:55 [facility] TROPONIN I 2024-07-08 02:10:00 [facility] COMP. METABOLIC PANEL ([id number]) 2024-07-08 02:10:00 Glenna [facility] CBC WITH DIFF 2024-07-08 02:10:00 Sabianist [facility] INTRO AIF SP CANAL PERQ APPROACH 2024-06-19 00:00:00 [facility] INTRO ANEST AGENT SPINAL CANAL PERQ 2024-06-19 00:00:00 [facility] INTRO AIF JOINTS PERQ APPROACH 2024-06-05 06:45:00 [facility] INTRO ANESTHETIC AGENT JOINTS PERQ 2024-06-05 06:45:00 [facility] INTRO AIF JOINTS PERQ APPROACH 2024-06-05 06:45:00 [facility] INTRO ANESTHETIC AGENT JOINTS PERQ 2024-06-05 06:45:00 [facility] [id number] Ultrasound, Abdominal, Real Time With Image Documentation; Complete 2024-04-10 00:00:00 Dwayne Myers LIPASE 2024-03-22 23:03:00 Jimy Cameron Un [facility] TROPONIN I 2024-03-22 23:03:00 Jimy Cameron Un [facility] COMP. METABOLIC PANEL ([id number]) 2024-03-22 23:03:00 Jimy Cameron [facility] CBC WITH DIFF 2024-03-22 23:03:[address] [facility] URINALYSIS 2024-03-22 23:03:00 Jimy Cameron Un [facility] RAPID STREP SCREEN FOR GROUP A 2024-03-22 11:34:00 Gabriel Garcia [facility] INFLUENZA A/B RSV COVID NAAT 2024-03-22 11:34:00 Gabriel Garcia [facility] REFERRAL- REQUEST/RESPONSE 2024-01-10 13:40:01 Doctor Unassigned, Springer [facility] XR ANKLE 3+ VW RIGHT 2023-10-13 02:37:00 Eloy Shipley [facility] XR FEMUR 2 VW RIGHT 2023-10-13 02:37:00 María Shipley [facility] XR HIPS 2 VW RIGHT 2023-10-13 02:37:00 Kavitha Shipley [facility] XR KNEE 3 VW RIGHT 2023-10-13 02:37:00 Nelson Hernandez [facility] CONSENT/REFUSAL FOR DIAGNOSIS AND TREATMENT 2023-10-13 00:49:50 Doctor Unassigned, Springer [facility] REFERRAL- REQUEST/RESPONSE 2023-08-23 06:01:00 Doctor Unassigned, Springer [facility] DESTRUCT LUMBAR NERVE PERQ APPROACH 2023-02-08 00:00:00 [facility] REFERRAL- REQUEST/RESPONSE 2022-12-25 05:01:00 Doctor Unassigned, Springer [facility] XR KNEE 3 VW RIGHT 2022-12-11 00:44:07 Oren Tovar [facility] NOTICE OF PRIVACY PRACTICES 2022-12-10 23:48:22 Doctor Unassigned, Springer [facility] CONSENT/REFUSAL FOR DIAGNOSIS AND TREATMENT 2022-12-10 23:47:38 Doctor Unassigned, Springer [facility] AUTHORIZATION FOR RELEASE OF PHI 2022-11-22 05:01:00 Doctor Unassigned, Springer [facility] TROPONIN I 2022-11-05 20:53:00 Zelda Olsen [facility] TROPONIN I 2022-11-05 14:07:00 Raúl [facility] THYROID STIMULATING HORMONE 2022-11-05 14:07:00 Nichole Weldon [facility] EKG-12 LEAD 2022-11-05 13:47:04 Yuniel Mccray [facility] CT CHEST PULMONARY ANGIOGRAM 2022-11-05 09:00:08 Yuniel Mccray [facility] TEST, SERUM 2022-11-05 07:07:00 Tiffani Mccray [facility] TROPONIN I 2022-11-05 07:07:00 Yuniel Mccray [facility] COMP. METABOLIC PANEL ([id number]) 2022-11-05 07:07:00 Yuniel Mccray [facility] CBC WITH DIFF 2022-11-05 07:07:00 Yuniel Mccray [facility] PROTHROMBIN TIME / INR 2022-11-05 07:07:00 Kelvin Mccray [facility] D-DIMER 2022-11-05 07:07:00 [facility] ACTIVATED PARTIAL THRMPLAS ANTONINO 2022-11-05 07:07:00 Yuniel Mccray [facility] N-TERMINAL PRO-BNP 2022-11-05 07:07:00 Yuniel Mccray [facility] XR CHEST 1 VW 2022-11-05 04:39:20 Yuniel Mccray [facility] COVID-19 (ID NOW RAPID TESTING) 2022-11-05 04:33:00 Yuniel Mccray [facility] CONSENT/REFUSAL FOR DIAGNOSIS AND TREATMENT 2022-11-05 03:43:00 Doctor Unassigned, Springer [facility] INTRO ANES AGT PERIPH NRV\\T\\PLEXI PC 2022-08-17 00:00:00 [facility] INTRO AIF PERIPH NRV PLEXI PERQ 2022-08-17 00:00:00 [facility] TRANSTHORACIC ECHO (TTE) LIMITED 2022-07-26 17:38:46 Jamia Benson [facility] EKG-12 LEAD 2022-07-26 04:19:27 Gl[facility] CT CHEST PULMONARY ANGIOGRAM 2022-07-26 03:22:22 Ced Hernández [facility] XR CHEST 1 VW 2022-07-26 02:35:21 Umm Manzanares [facility] MAGNESIUM 2022-07-26 02:27:00 Jamia Benson [facility] TEST, SERUM 2022-07-26 02:27:00 Glenna [facility] TROPONIN I 2022-07-26 02:27:00 Glenna [facility] COMP. METABOLIC PANEL ([id number]) 2022-07-26 02:27:00 Glenna [facility] CBC WITH DIFF 2022-07-26 02:27:00 Glenna [facility] D-DIMER 2022-07-26 02:27:00 Glenna [facility] RAPID INFLUENZA A/B 2022-07-26 02:27:00 [facility] N-TERMINAL PRO-BNP 2022-07-26 02:27:00 Ced Hernández [facility] COVID-19 (ID NOW RAPID TESTING) 2022-07-26 02:27:00 Glenna [facility] LAB ONLY COVID INTERPRETATION 2022-07-26 02:27:00 Umm Manzanares [facility] POCT TEST 2022-07-26 02:25:00 [facility] CONSENT/REFUSAL FOR DIAGNOSIS AND TREATMENT 2022-07-26 01:46:49 Doctor Unassigned, Springer [facility] INTRO DSTRUC AGT CL NRV PLEXI PC 2022-07-20 00:00:00 [facility] TROPONIN I 2022-06-25 13:36:00 [facility] THYROID STIMULATING HORMONE 2022-06-25 13:36:00 Shakira Lucas [facility] TROPONIN I 2022-06-25 10:40:00 [facility]ST 2022-06-25 08:02:00 Vi Kline [facility] EKG-12 LEAD 2022-06-25 05:02:32 Jaden Siddiqui [facility] URINALYSIS 2022-06-25 03:47:00 [facility] TROPONIN I 2022-06-25 03:35:00 Jaden Siddiqui [facility] COMP. METABOLIC PANEL ([id number]) 2022-06-25 03:35:00 Jaden Siddiqui [facility] CBC WITH DIFF 2022-06-25 03:35:00 Jaden Siddiqui [facility] PROTHROMBIN TIME / INR 2022-06-25 03:35:00 Kenna Siddiqui [facility] D-DIMER 2022-06-25 03:35:00 Anaya Kline Un [facility] N-TERMINAL PRO-BNP 2022-06-25 03:35:00 Jaden Siddiqui [facility] CONSENT/REFUSAL FOR DIAGNOSIS AND TREATMENT 2022-06-25 00:16:13 Doctor Unassigned, Springer [facility] XR CHEST 1 VW 2022-06-24 14:12[facility]00 [facility]\\T\\PLEXI PC 2022-06-15 00:00:00 [facility] INTRO AIF PERIPH NRV PLEXI PERQ 2022-06-15 00:00:00 [facility] AUTHORIZATION FOR RELEASE OF PHI 2022-06-08 05:01:00 Doctor Unassigned, Springer [facility] XR CHEST 1 VW 2022-06-01 02:07:14 Gabriel Garcia [facility] XR KNEE <3 VW RIGHT 2022-06-01 02:07:14 Gabriel Garcia [facility] XR SHOULDER 2+ VW RIGHT 2022-06-01 02:07:14 Lela Garcia [facility] CT CERVICAL SPINE WO CONTRAST 2022-06-01 02:05:05 Gabriel Garcia [facility] CT HEAD WO CONTRAST 2022-06-01 02:05:05 Gabriel Garcia [facility] CONSENT/REFUSAL FOR DIAGNOSIS AND TREATMENT 2022-06-01 01:15:31 Doctor Unassigned, Springer [facility] INTRO ANES AGT PERIPH NRV\\T\\PLEXI PC 2022-05-11 00:00:00 [facility] INTRO AIF PERIPH NRV PLEXI PERQ 2022-05-11 00:00:00 [facility] INTRO ANES AGT PERIPH NRV\\T\\PLEXI PC 2022-04-06 00:00:00 [facility] INTRO AIF PERIPH NRV PLEXI PERQ 2022-04-06 00:00:00 [facility] ASSIGNMENT OF BENEFITS 2022-03-14 20:14:00 Docto r Unassigned, Springer [facility] CT THORAX WO CONTRAST 2022-02-26 13:20:05 Anaya Kline [facility] BASIC METABOLIC PANEL (NA, K, CL, CO2, GLUCOSE, BUN, CREATININE, CA) 2022-02-26 09:29:00 Anaya Kline [facility] CBC WITH DIFF 2022-02-26 09:29:[address] [facility] EKG-12 LEAD 2022-02-26 06:20:06 [facility] LIP[facility] 2022-02-26 03:28:00 Jimy Cameron Un [facility] TROPONIN I 2022-02-26 03:28:00 Jimy Cameron Un [facility] COMP. METABOLIC PANEL ([id number]) 2022-02-26 03:28:00 Jimy Cameron [facility] CBC WITH DIFF 2022-02-26 03:28:[address] [facility] N-TERMINAL PRO-BNP 2022-02-26 03:28:00 Angelia Cameron [facility] XR CHEST 1 VW 2022-02-26 01:52:[address] [facility] COVID-19 (ID NOW RAPID TESTING) 2022-02-26 01:03:00 Jimy Cameron [facility] CT HEAD WO CONTRAST 2022-02-25 23:59:38 Jose Enrique Cameron [facility] CONSENT/REFUSAL FOR DIAGNOSIS AND TREATMENT 2022-02-25 22:55:28 Doctor Unassigned, Springer [facility] EKG-12 LEAD 2022-02-23 06:15:35 Bro [facility] TROPONIN I 2022-02-23 05:20:00 Bro [facility] XR CHEST 2 VW 2022-02-23 03:47:00 Bro Ann [facility] URINALYSIS 2022-02-23 03:26:00 Bro Ann [facility] TROPONIN I 2022-02-23 03:12:00 Bro Ann [facility] COMP. METABOLIC PANEL ([id number]) 2022-02-23 03:12:00 Bro Ann [facility] CBC WITH DIFF 2022-02-23 03:12:00 Bro Ann [facility] RAPID INFLUENZA A/B 2022-02-23 03:12:00 Linda Ann [facility] N-TERMINAL PRO-BNP 2022-02-23 03:12:00 Sue Ann [facility] COVID-19 (ID NOW RAPID TESTING) 2022-02-23 03:12:00 Bro Ann [facility] CONSENT/REFUSAL FOR DIAGNOSIS AND TREATMENT 2022-02-23 02:38:26 Doctor Unassigned, Springer [facility] XR LUMBAR SPINE 2 VW 2022-01-29 20:25:58 Edgard Rudy jacobson [facility] CONSENT/REFUSAL FOR DIAGNOSIS AND TREATMENT 2022-01-29 18:42:46 Doctor Unassigned, Springer [facility] [facility] XR CHEST 1 VW 2022-01-29 13:43:[address] [facility] TROPONIN I 2022-01-29 13:34:00 [facility] COMP. METABOLIC PANEL (40682) 2022-01-29 13:34:00 Mai Del Rosario [facility] CBC WITH DIFF 2022-01-29 13:34:[address] [facility] N-TERMINAL PRO-BNP 2022-01-29 13:34:00 Ricky Del Rosario [facility] AC PANEL 21 + LACTIC ACID 2022-01-29 13:34:00 Mai Del Rosario [facility] CONSENT/REFUSAL FOR DIAGNOSIS AND TREATMENT 2022-01-29 12:47:51 Doctor Unassigned, Springer [facility] INTRO ANES AGT PERIPH NRV\\T\\PLEXI PC 2022-01-05 00:00:00 [facility] INTRO AIF PERIPH NRV PLEXI PERQ 2022-01-05 00:00:00 [facility] XR CHEST 1 VW 2022-01-03 04:29:34 Jacklyn Guillen [facility] CONSENT/REFUSAL FOR DIAGNOSIS AND TREATMENT 2022-01-03 02:30:38 Doctor Unassigned, Springer [facility] MAGNESIUM 2021-12-07 09:01:00 [facility] COMP. METABOLIC PANEL ([id number]) 2021-12-07 09:01:00 Gely Hernandez [facility] CBC WITH DIFF 2021-12-07 09:01:[address] [facility] N-TERMINAL PRO-BNP 2021-12-07 09:01:00 Gely Hernandez [facility] URINALYSIS 2021-12-06 16:46:[address] [facility] URINE CULTURE 2021-12-06 16:46:00 Gely Hernandez [facility] PHOSPHORUS 2021-12-06 10:11:[address] [facility] MAGNESIUM 2021-12-06 10:11:[address] [facility] VITAMIN B12, LEVEL 2021-12-06 10:11:00 Tasha ady [facility] C-REACTIVE PROTEIN 2021-12-06 10:11:00 Tasha [facility] TROPONIN I 2021-12-06 10:11:[address] [facility] FREE T4 2021-12-06 10:11:[address] [facility] COMP. METABOLIC PANEL ([id number]) 2021-12-06 10:11:00 Gely Hernandez [facility] SEDIMENTATION RATE 2021-12-06 10:11:00 Gely Hernandez [facility] CBC WITH DIFF 2021-12-06 10:11:00 Gely Hernandez [facility] N-TERMINAL PRO-BNP 2021-12-06 10:11:00 Tasha ady [facility] VITAMIN D, 25-OH 2021-12-06 10:11:00 Gely Hernandez [facility] FREE T3 2021-12-06 10:11:[address] [facility] PROCALCITONIN 2021-12-06 10:11:00 Gely Hernandez [facility] AC VBG + LACTIC ACID 2021-12-06 10:10:00 Hyacinth Hernandez [facility] COVID-19 (ID NOW RAPID TESTING) 2021-12-06 00:09:00 Oren Tovar [facility] LAB ONLY COVID INTERPRETATION 2021-12-06 00:09:00 Oren Tovar [facility] URIC ACID 2021-12-06 00:07:[address] [facility] FERRITIN SERUM 2021-12-06 00:07:00 Gely [facility] TROPONIN I 2021-12-06 00:07:00 Oren Tovar [facility] THYROID STIMULATING HORMONE 2021-12-06 00:07:00 Gely Hernandez [facility] COMP. METABOLIC PANEL ([id number]) 2021-12-06 00:07:00 Oren Tovar [facility] LIPID PANEL ([id number])(TOTAL CHOLESTEROL, TRIGLYCERIDES, HDL) 2021-12-06 00:07:00 Gely Hernandez [facility] IRON PANEL 2021-12-06 00:07:[address] [facility] DIFF CONSULT INTERPRETATION 2021-12-06 00:07:00 Gely Hernandez [facility] CBC WITH DIFF 2021-12-06 00:07:00 Oren Tovar [facility] GLYCOSYLATED HEMOGLOBIN (A1C) 2021-12-06 00:07:00 Gely Hernandez [facility] PROTHROMBIN TIME / INR 2021-12-06 00:07:00 Sathya Tovar [facility] ACTIVATED PARTIAL THRMPLAS ANTONINO 2021-12-06 00:07:00 Oren Tovar [facility] N-TERMINAL PRO-BNP 2021-12-06 00:07:00 Oren Tovar [facility] HB ECG ROUTINE & RHYTHM STRIP 2021-12-06 00:05:16 Oren Tovar [facility] XR CHEST 1 VW 2021-12-05 23:50:38 Oren Tovar [facility] ASSIGNMENT OF BENEFITS 2021-12-05 23:47:08 Docto r Unassigned, Springer [facility] NOTICE OF PRIVACY PRACTICES 2021-12-05 22:03:59 Doctor Unassigned, Springer [facility] CONSENT/REFUSAL FOR DIAGNOSIS AND TREATMENT 2021-12-05 22:03:42 Doctor Unassigned, Springer [facility] CT ANGIOGRAM CHEST 2021-12-04 20:47:15 Wilfrid Hathaway [facility] LACTIC ACID WHOLE BLOOD 2021-12-04 15:19:00 Michel [facility] BLOOD CULTURE SCREEN 2021-12-04 10:21:00 Ayesha You [facility] LACTIC ACID WHOLE BLOOD 2021-12-04 09:08:00 Deloris You [facility] BASIC METABOLIC PANEL (NA, K, CL, CO2, GLUCOSE, BUN, CREATININE, CA) 2021-12-04 09:07:00 Michel Wilfrid [facility] CBC WITH DIFF 2021-12-04 09:07:00 Wilfrid [facility] EKG-12 LEAD 2021-12-03 21:29:00 [facility] ABG + LACTIC ACID 2021-12-03 21:13:00 Lexi Brush [facility] AMYLASE 2021-12-03 21:12:00 [facility] LIPASE 2021-12-03 21:12:00 [facility] TROPONIN I 2021-12-03 21:12:00 Maury Brush Un [facility] COMP. METABOLIC PANEL ([id number]) 2021-12-03 21:12:00 Maury Brush [facility] CBC WITH DIFF 2021-12-03 21:12:[address] [facility] N-TERMINAL PRO-BNP 2021-12-03 21:12:00 Sonia Brush [facility] PROCALCITONIN 2021-12-03 21:12:00 Abu Anaya Sharma U [facility] XR CHEST 1 VW 2021-12-03 20:52:[address] [facility] URINALYSIS 2021-12-03 20:34:00 Maury Brush Un [facility] COVID-19 (ID NOW RAPID TESTING) 2021-12-03 20:34:00 Maury Brush [facility] AUTHORIZATION FOR RELEASE OF PHI 2021-11-23 05:01:00 Doctor Unassigned, Springer [facility] EKG-12 LEAD 2021-11-11 05:25:58 Jimy Cameron [facility] BASIC METABOLIC PANEL (NA, K, CL, CO2, GLUCOSE, BUN, CREATININE, CA) 2021-11-10 09:16:00 Michel [facility] CBC WITH DIFF 2021-11-10 09:16:00 Wilfrid [facility] LACTIC ACID WHOLE BLOOD 2021-11-10 09:16:00 Jimy Cameron [facility] CT CHEST PULMONARY ANGIOGRAM 2021-11-10 04:49:21 Jimy Cameron [facility] BLOOD CULTURE SCREEN 2021-11-10 03:58:00 Stevan Cameron [facility] BLOOD CULTURE WORKUP 2021-11-10 03:58:00 Stevan Cameron [facility] BLOOD CULTURE SCREEN 2021-11-10 02:56:00 Stevan Cameron [facility] PROTHROMBIN TIME / INR 2021-11-10 01:47:00 Jonathon Cameron [facility] D-DIMER 2021-11-10 01:47:00 Jimy Cameron [facility] ACTIVATED PARTIAL THRMPLAS ANTONINO 2021-11-10 01:47:00 Jimy Cameron [facility] COVID-19 (ID NOW RAPID TESTING) 2021-11-10 01:47:00 Jimy Cameron [facility] LAB ONLY COVID INTERPRETATION 2021-11-10 01:47:00 Jimy Cameron [facility] AC ABG + LACTIC ACID 2021-11-10 01:45:00 Stevan Cameron [facility] XR CHEST 1 2021-11-10 01:38:00 Jimy Cameron [facility] COMP. METABOLIC PANEL ([id number]) 2021-11-10 01:32:00 Jimy Cameron [facility] CBC WITH DIFF 2021-11-10 01:32:00 Jimy Cameron [facility] CONSENT/REFUSAL FOR DIAGNOSIS AND TREATMENT 2021-11-10 00:42:41 Doctor Unassigned, Springer [facility] AUTHORIZATION FOR RELEASE OF PHI 2021-11-07 06:01:00 Doctor Unassigned, Springer [facility] EXTERNAL PROVIDER - WOMEN'S SERVICES RADIOLOGY 2021-11-03 06:01:00 Doctor Unassigned, Springer [facility] XR CHEST 1 2021-10-24 18:45:48 Abu Sher, Casean [facility] XR CHEST 1 2021-10-24 18:45:48 Abu Sher, Emran [facility] BASIC METABOLIC PANEL (NA, K, CL, CO2, GLUCOSE, BUN, CREATININE, CA) 2021-10-24 12:36:00 Renato [facility] CBC WITHOUT DIFF 2021-10-24 12:36:00 [facility] BASIC METABOLIC PANEL (NA, K, CL, CO2, GLUCOSE, BUN, CREATININE, CA) 2021-10-24 12:36:00 Renato [facility] CBC WITHOUT DIFF 2021-10-24 12:36:00 Benjamin Gross [facility] XR CHEST 1 2021-10-22 15:58:26 Abu Sher, Emran [facility] XR CHEST 1 2021-10-22 15:58:26 Abu Atherlewis, Emran [facility] MAGNESIUM 2021-10-22 10:47:00 Zelda Olsen [facility] BASIC METABOLIC PANEL (NA, K, CL, CO2, GLUCOSE, BUN, CREATININE, CA) 2021-10-22 10:47:00 Zelda Olsen [facility] CBC WITH DIFF 2021-10-22 10:47:00 Zelda Olsen [facility] MAGNESIUM 2021-10-22 10:47:00 Zelda Olsen [facility] BASIC METABOLIC PANEL (NA, K, CL, CO2, GLUCOSE, BUN, CREATININE, CA) 2021-10-22 10:47:00 Raúl [facility] CBC WITH DIFF 2021-10-22 10:47:00 Zelda Olsen [facility] XR CHEST 1 VW 2021-10-21 22:10:00 Abu Anaya Sharma [facility] XR CHEST 1 VW 2021-10-21 22:10:[address] [facility] AC PANEL 20 + LACTIC ACID 2021-10-21 20:28:00 Abu Jailene mcclure [facility] AC PANEL 20 + LACTIC ACID 2021-10-21 20:28:00 Abu Jailene mcclure [facility] CYTO BAL 2021-10-21 18:49:00 Abu Anaya Sharma [facility] BODY FLUID DIRECT COUNT 2021-10-21 18:47:00 Abu Athera h [facility] BODY FLUID DIRECT COUNT 2021-10-21 18:47:00 Abu Athera h, [facility] AFB CULTURE 2021-10-21 18:46:00 Abu Anaya Sharma [facility] FUNGUS (ROUTINE) CULTURE 2021-10-21 18:46:00 Abu Ather [facility] MYCOBACTERIUM TUBERCULOSIS COMPLEX PCR 2021-10-21 18:46:00 [facility] RESPIRATORY PANEL BY PCR 2021-10-21 18:46:00 [facility] [employer] CULTURE 2021-10-21 18:46:00 Anaya Kline [facility] FUNGUS (ROUTINE) CULTURE 2021-10-21 18:46:00 Abu Ather , [facility] MYCOBACTERIUM TUBERCULOSIS COMPLEX PCR 2021-10-21 18:46:00 Abu Sher Caseamina [facility] RESPIRATORY PANEL BY PCR 2021-10-21 18:46:00 Abu Ather lewis, Caseamina [facility] BASIC METABOLIC PANEL (NA, K, CL, CO2, GLUCOSE, BUN, CREATININE, CA) 2021-10-21 18:44:00 Abu Sher [facility] BASIC METABOLIC PANEL (NA, K, CL, CO2, GLUCOSE, BUN, CREATININE, CA) 2021-10-21 18:44:00 Abu Sher Caseamina [facility] CBC WITH DIFF 2021-10-21 18:41:[address] [facility] PROTHROMBIN TIME / INR 2021-10-21 18:41:00 Abu Sher [facility] FIBRINOGEN 2021-10-21 18:41:00 Abu [facility] WITH DIFF 2021-10-21 18:41:00 Abu Sher Caseamina [facility] PROTHROMBIN TIME / INR 2021-10-21 18:41:00 Abu Sher [facility] FIBRINOGEN 2021-10-21 18:41:00 Abu Sher Caseamina [facility] ANTI-NUCLEAR ANTIBODY SCREEN 2021-10-21 18:41:00 Michael Sharma [facility] FL TIME OR (NON-REPORTABLE) 2021-10-21 18:18:06 Abu Sher [facility] FL TIME OR (NON-REPORTABLE) 2021-10-21 18:18:06 Abki Sharma [facility] FLEXIBLE BRONCHOSCOPY 2021-10-21 16:21:00 Abu Sher [facility] FLEXIBLE BRONCHOSCOPY 2021-10-21 16:21:00 Abu Sher [facility] XR CHEST 1 VW 2021-10-20 11:13:00 Abu Anaya Sharma [facility] XR CHEST 1 VW 2021-10-20 11:13:00 Abu MaliAnaya saucedo [facility] CBC WITH DIFF 2021-10-20 10:30:00 Maggie [facility] CBC WITH DIFF 2021-10-20 10:30:00 Maggie [facility] URIC ACID 2021-10-20 10:29:00 Abki SamsonlewisAnaya Un [facility] BASIC METABOLIC PANEL (NA, K, CL, CO2, GLUCOSE, BUN, CREATININE, CA) 2021-10-20 10:29:00 Maggie Morgan [facility] URIC ACID 2021-10-20 10:29:00 Abu Case Sharmaamina Un [facility] BASIC METABOLIC PANEL (NA, K, CL, CO2, GLUCOSE, BUN, CREATININE, CA) 2021-10-20 10:29:00 Maggie Morgan [facility] XR CHEST 1 VW 2021-10-19 18:11:14 Abu Anaya [address]arma U [facility] XR CHEST 1 VW 2021-10-19 18:11:14 Abu MaliCase saucedoamina U [facility] CBC WITH DIFF 2021-10-19 09:05:00 Maggie Morgan [facility] CBC WITH DIFF 2021-10-19 09:05:00 Maggie [facility] MAGNESIUM 2021-10-19 09:04:00 Zelda Olsen [facility] BASIC METABOLIC PANEL (NA, K, CL, CO2, GLUCOSE, BUN, CREATININE, CA) 2021-10-19 09:04:00 Maggie Morgna [facility] MAGNESIUM 2021-10-19 09:04:00 Zelda Olsen [facility] BASIC METABOLIC PANEL (NA, K, CL, CO2, GLUCOSE, BUN, CREATININE, CA) 2021-10-19 09:04:00 Maggie Morgan [facility] POCT GLUCOSE (AUTOMATED) 2021-10-19 02:24:00 Yamini Talavera [facility] POCT GLUCOSE (AUTOMATED) 2021-10-19 02:24:00 Yamini Talavera [facility] COVID-19 (MOLECULAR TESTING NUCLEIC ACID AMPLIFICATION) 2021-10-18 19:48:00 [facility] LAB ONLY COVID INTERPRETATION 2021-10-18 19:48:00 Robert [facility] COVID-19 (MOLECULAR TESTING NUCLEIC ACID AMPLIFICATION) 2021-10-18 19:48:00 Robert [facility] LAB ONLY COVID INTERPRETATION 2021-10-18 19:48:00 Robert [facility] ANGIOTENSIN CONVERTING ENZYME 2021-10-18 19:45:00 Robert [facility] RHEUMATOID FACTOR 2021-10-18 19:45:00 Amadou Putnam [facility] ANCA SCREEN 2021-10-18 19:45:00 Vale Jones [facility] ANGIOTENSIN CONVERTING ENZYME 2021-10-18 19:45:00 Robert [facility] RHEUMATOID FACTOR 2021-10-18 19:45:00 Amadou Putnam [facility] ANCA SCREEN 2021-10-18 19:45:00 Vale Jones [facility] XR CHEST 1 VW 2021-10-18 12:37:00 Abu Case Sharmaan U [facility] XR CHEST 1 VW 2021-10-18 12:37:00 Abu Atherlewis Emran U [facility] PHOSPHORUS 2021-10-18 09:30:00 Zelda Olsen [facility] MAGNESIUM 2021-10-18 09:30:00 Zelda Olsen [facility] BASIC METABOLIC PANEL (NA, K, CL, CO2, GLUCOSE, BUN, CREATININE, CA) 2021-10-18 09:30:00 Zelda Olsen [facility] CBC WITH DIFF 2021-10-18 09:30:00 Zelda Olsen [facility] GLYCOSYLATED HEMOGLOBIN (A1C) 2021-10-18 09:30:00 Maggie Morgan [facility] PHOSPHORUS 2021-10-18 09:30:00 RaúlZelda [facility] MAGNESIUM 2021-10-18 09:30:00 Zelda Olsen [facility] BASIC METABOLIC PANEL (NA, K, CL, CO2, GLUCOSE, BUN, CREATININE, CA) 2021-10-18 09:30:00 Zelda Olsen [facility] CBC WITH DIFF 2021-10-18 09:30:00 Zelda Olsen [facility] GLYCOSYLATED HEMOGLOBIN (A1C) 2021-10-18 09:30:00 Maggie Morgan [facility] BASIC METABOLIC PANEL (NA, K, CL, CO2, GLUCOSE, BUN, CREATININE, CA) 2021-10-18 00:43:00 Anaya Kline [facility] BASIC METABOLIC PANEL (NA, K, CL, CO2, GLUCOSE, BUN, CREATININE, CA) 2021-10-18 00:43:00 [facility] N-TERMINAL PRO-BNP 2021-10-17 21:27:[address] [facility] N-TERMINAL PRO-BNP 2021-10-17 21:27:00 Samir Galindo [facility] TRANSTHORACIC ECHO (TTE) COMPLETE 2021-10-17 17:05:00 Bk [facility] TRANSTHORACIC ECHO (TTE) COMPLETE 2021-10-17 17:05:00 [facility] XR CHEST 1 VW 2021-10-17 17:00:[address] [facility] XR CHEST 1 VW 2021-10-17 17:00:[address] [facility] XR CHEST 1 VW 2021-10-17 14:17:[address] [facility] XR CHEST 1 VW 2021-10-17 14:17:[address] [facility] ABG+COOX+NA+K+GLU+CA2+ 2021-10-17 13:25:00 Rey Parada [facility] ABG+COOX+NA+K+GLU+CA2+ 2021-10-17 13:25:00 Rey Parada [facility] PHOSPHORUS 2021-10-17 10:28:00 [facility] 2021-10-17 10:28:00 Josie [facility] BASIC METABOLIC PANEL (NA, K, CL, CO2, GLUCOSE, BUN, CREATININE, CA) 2021-10-17 10:28:00 Lewismed, [facility] SEDIMENTATION RATE 2021-10-17 10:28:00 [facility]az [facility] WITH DIFF 2021-10-17 10:28[facility]00 [facility]TI-NUCLEAR ANTIBODY SCREEN 2021-10-17 10:28:00 Faraz Parada [facility] ANTI-NUCLEAR ANTIBODY TITER 2021-10-17 10:28:00 Faraz Parada [facility] ANTI-DOUBLE STRANDED DNA 2021-10-17 10:28:00 Amadou Putnam [facility] HIV 1/2 AG-AB WITH REFLEX 2021-10-17 10:28:00 Abu Anaya Welch [facility] ANTI-NUCLEAR ANTIBODY-PATHOLOGIST INTERPRETATION 2021-10-17 10:28:00 Faraz Parada [facility] PHOSPHORUS 2021-10-17 10:28:00 [facility] 2021-10-17 10:28:00 [facility] BASIC METABOLIC PANEL (NA, K, CL, CO2, GLUCOSE, BUN, CREATININE, CA) 2021-10-17 10:28:00 Josie, [facility] SEDIMENTATION RATE 2021-10-17 10:28:00 Faraz Parada [facility] CBC WITH DIFF 2021-10-17 10:28:[address] [facility] ANTI-NUCLEAR ANTIBODY SCREEN 2021-10-17 10:28:00 Faraz Parada [facility] ANTI-NUCLEAR ANTIBODY TITER 2021-10-17 10:28:00 Faraz Parada [facility] ANTI-DOUBLE STRANDED DNA 2021-10-17 10:28:00 Amadou Putnam [facility] HIV 1/2 AG-AB WITH REFLEX 2021-10-17 10:28:00 Anaya Connors [facility] ANTI-NUCLEAR ANTIBODY-PATHOLOGIST INTERPRETATION 2021-10-17 10:28:00 Faraz Parada [facility] BLOOD CULTURE SCREEN 2021-10-16 17:40:00 Yojana Putnam si [facility] BLOOD CULTURE SCREEN 2021-10-16 17:40:00 Yojana Putnam si [facility] XR CHEST 1 VW 2021-10-16 16:56:[address] [facility] XR CHEST 1 VW 2021-10-16 16:56:[address] [facility] RESPIRATORY PANEL BY PCR 2021-10-16 14:46:00 Amadou Putnam [facility] RESPIRATORY PANEL BY PCR 2021-10-16 14:46:00 Amadou Putnam [facility] PHOSPHORUS 2021-10-16 10:47:00 Samir Galindo [facility] MAGNESIUM 2021-10-16 10:47:00 Samir Galindo [facility] BASIC METABOLIC PANEL (NA, K, CL, CO2, GLUCOSE, BUN, CREATININE, CA) 2021-10-16 10:47:00 Samir Galindo [facility] CBC WITH DIFF 2021-10-16 10:47:[address] [facility] AC PANEL 20 + LACTIC ACID 2021-10-16 10:47:00 Maryan Galindo [facility] PHOSPHORUS 2021-10-16 10:47:00 Samir Galindo [facility] MAGNESIUM 2021-10-16 10:47:00 Samir Galindo [facility] BASIC METABOLIC PANEL (NA, K, CL, CO2, GLUCOSE, BUN, CREATININE, CA) 2021-10-16 10:47:00 Samir Galindo [facility] CBC WITH DIFF 2021-10-16 10:47:00 Samir Galindo [facility] AC PANEL 20 + LACTIC ACID 2021-10-16 10:47:00 [facility] C-REACTIVE PROTEIN 2021-10-15 22:38:00 Faraz Parada [facility] TROPONIN I 2021-10-15 22:38:00 [facility]OL[facility] PANEL (NA, K, CL, CO2, GLUCOSE, BUN, CREATININE, CA) 2021-10-15 22:38:00 [facility] C-REACTIVE PROTEIN 2021-10-15 22:38:00 Faraz Parada [facility] TROPONIN I 2021-10-15 22:38:00 Ilan [facility] BASIC METABOLIC PANEL (NA, K, CL, CO2, GLUCOSE, BUN, CREATININE, CA) 2021-10-15 22:38:00 [facility] PNEUMOCOCCAL ANTIGEN 2021-10-15 21:49:[address] [facility] PNEUMOCOCCAL ANTIGEN 2021-10-15 21:49:00 Josie, [facility] LEGIONELLA URINARY ANTIGEN TST 2021-10-15 21:48:00 Josie, [facility] LEGIONELLA URINARY ANTIGEN TST 2021-10-15 21:48:[address] [facility] CT ANGIOGRAM CHEST 2021-10-15 19:22:00 Abu Vi Sharma [facility] CT ANGIOGRAM CHEST 2021-10-15 19:22:00 Abu Vi Sharma [facility] TROPONIN I 2021-10-15 17:29:00 Blanca Talavera [facility] RAPID INFLUENZA A/B 2021-10-15 17:29:00 Vito Bourgeois [facility] N-TERMINAL PRO-BNP 2021-10-15 17:29:00 Jose Bourgeois a [facility] PROCALCITONIN 2021-10-15 17:29:00 Nicol Bourgeois [facility] COVID-19 (MOLECULAR TESTING NUCLEIC ACID AMPLIFICATION) 2021-10-15 17:29:00 Nicol Bourgeois [facility] LAB ONLY COVID INTERPRETATION 2021-10-15 17:29:00 Vito Bourgeoisdaysi [facility] TROPONIN I 2021-10-15 17:29:00 [facility]FLUENZA A/B 2021-10-15 17:29:00 Vito Bourgeois daysi [facility] N-TERMINAL PRO-BNP 2021-10-15 17:29:00 Jose Bourgeois [facility] PROCALCITONIN 2021-10-15 17:29:00 Nicol Bourgeois [facility] COVID-19 (MOLECULAR TESTING NUCLEIC ACID AMPLIFICATION) 2021-10-15 17:29:00 [facility] COVID INTERPRETATION 2021-10-15 17:29:00 [facility] (ID NOW RAPID TESTING) 2021-10-15 13:03:[address] [facility] LAB ONLY COVID INTERPRETATION 2021-10-15 13:03:[address] [facility] COVID-19 (ID NOW RAPID TESTING) 2021-10-15 13:03:[address] [facility] LAB ONLY COVID INTERPRETATION 2021-10-15 13:03:00 [facility] VW 2021-10-15 09:46:38 Blanca Talavera [facility] XR CHEST 1 VW 2021-10-15 09:46:38 Blanca Talavera [facility] MAGNESIUM 2021-10-15 08:16:00 Samir Galindo [facility] BASIC METABOLIC PANEL (NA, K, CL, CO2, GLUCOSE, BUN, CREATININE, CA) 2021-10-15 08:16:00 [facility] PROCAL[facility]IN 2021-10-15 08:16:00 Blanca Talavera [facility] MAGNESIUM 2021-10-15 08:16:00 Samir Galindo [facility] BASIC METABOLIC PANEL (NA, K, CL, CO2, GLUCOSE, BUN, CREATININE, CA) 2021-10-15 08:16:00 [facility]AL[facility]IN 2021-10-15 08:16:00 Blanca Talavera [facility] ABG+COOX+NA+K+GLU+CA2+ 2021-10-15 07:24:00 Josie [facility] ABG+COOX+NA+K+GLU+CA2+ 2021-10-15 07:24:00 Josie [facility] TROPONIN I 2021-10-15 07:10:00 Ilan [facility] CBC WITH DIFF 2021-10-15 07:10:[address] [facility] TROPONIN I 2021-10-15 07:10:00 [facility] CBC WITH DIFF 2021-10-15 07:10:[address] [facility] MRSA / MSSA SCREEN BY PCRLUKAS 2021-10-15 07:09:[address] [facility] MRSA / MSSA SCREEN BY PCR, [facility] 2021-10-15 07:09:00 Josie Samir [facility] AUTHORIZATION FOR RELEASE OF PHI 2021-06-09 05:01:00 Doctor Unassigned, Springer [facility] Plan of Care Planned Activity Planned Date Details Comments Source Goal Plan of Care Note [code = 85915-6] Goal Plan of Care Note [code = 51821-5] Goal Plan of Care Note [code = 10535-8] Goal Plan of Care Note [code = 94579-9] Goal Plan of Care Note [code = 06562-9] Goal Plan of Care Note [code = 47980-5] Goal Plan of Care Note [code = 44318-1] Goal Plan of Care Note [code = 38576-2] Goal Plan of Care Note [code = 38707-3] Goal Plan of Care Note [code = 62902-8] Goal Plan of Care Note [code = 86273-4] Goal Plan of Care Note [code = 69855-4] Goal Plan of Care Note [code = 17671-2] Goal Plan of Care Note [code = 75814-3] Goal Plan of Care Note [code = 19169-2] Goal Plan of Care Note [code = 85613-5] Goal Plan of Care Note [code = 37450-2] Goal Plan of Care Note [code = 36793-9] Goal Plan of Care Note [code = 85056-5] Goal Plan of Care Note [code = 45759-4] Goal Plan of Care Note [code = 76990-7] Goal Plan of Care Note [code = 76236-8] Goal Plan of Care Note [code = 22184-8] Goal Plan of Care Note [code = 89456-5] Goal Plan of Care Note [code = 95920-7] Goal Plan of Care Note [code = 95887-2] Goal Plan of Care Note [code = 39668-3] Goal Plan of Care Note [code = 94566-5] Goal Plan of Care Note [code = 87441-2] Goal Plan of Care Note [code = 72845-3] Goal Plan of Care Note [code = 33462-6] Goal Plan of Care Note [code = 28416-5] Goal Plan of Care Note [code = 14670-4] Goal Plan of Care Note [code = 92295-2] Goal Plan of Care Note [code = 70391-3] Goal Plan of Care Note [code = 19561-0] Goal Plan of Care Note [code = 79186-5] Goal Plan of Care Note [code = 34056-3] Goal Plan of Care Note [code = 46420-7] Goal Plan of Care Note [code = 39661-2] Goal Plan of Care Note [code = 92230-5] Goal Plan of Care Note [code = 96726-2] Goal Plan of Care Note [code = 85956-1] Goal Plan of Care Note [code = 02406-8] Goal Plan of Care Note [code = 35087-9] Goal Plan of Care Note [code = 66594-7] Goal Plan of Care Note [code = 83183-8] Goal Plan of Care Note [code = 85417-8] Goal Plan of Care Note [code = 31843-5] Goal Plan of Care Note [code = 90509-4] Goal Plan of Care Note [code = 88819-6] Goal Plan of Care Note [code = 23134-0] Goal Plan of Care Note [code = 75263-3] Goal Plan of Care Note [code = 95137-7] Goal Plan of Care Note [code = 99783-6] Goal Plan of Care Note [code = 25062-1] Goal Plan of Care Note [code = 21744-8] Goal Plan of Care Note [code = 49659-3] Goal Plan of Care Note [code = 68437-7] Goal Plan of Care Note [code = 79903-4] Goal Plan of Care Note [code = 22564-6] Goal Plan of Care Note [code = 74725-8] Goal Plan of Care Note [code = 91717-2] Goal Plan of Care Note [code = 24797-0] Goal Plan of Care Note [code = 07951-7] Goal Plan of Care Note [code = 62335-9] Goal Plan of Care Note [code = 64377-0] Goal Plan of Care Note [code = 53891-2] Goal Plan of Care Note [code = 67287-6] Goal Plan of Care Note [code = 58396-4] Goal Plan of Care Note [code = 52504-2] Goal Plan of Care Note [code = 94988-5] Goal Plan of Care Note [code = 19422-0] Goal Plan of Care Note [code = 62815-1] Goal Plan of Care Note [code = 56257-7] Goal Plan of Care Note [code = 07481-0] Goal Plan of Care Note [code = 70285-1] Goal Plan of Care Note [code = 52511-7] Goal Plan of Care Note [code = 88705-6] Goal Plan of Care Note [code = 09786-6] Goal Plan of Care Note [code = 82114-6] Goal Plan of Care Note [code = 48481-4] Goal Plan of Care Note [code = 28684-8] Goal Plan of Care Note [code = 65798-9] Goal Plan of Care Note [code = 59832-0] Goal Plan of Care Note [code = 26726-1] Goal Plan of Care Note [code = 99066-9] Goal Plan of Care Note [code = 43352-9] Goal Plan of Care Note [code = 11027-7] Goal Plan of Care Note [code = 05478-1] Goal Plan of Care Note [code = 27354-2] Goal Plan of Care Note [code = 84456-9] Goal Plan of Care Note [code = 96560-5] Goal Plan of Care Note [code = 32885-8] Encounters Start Date/Time End Date/Time Encounter Type Admission Type Attending Clinicians [facility] Facility Care Department Encounter ID Source 2025-04-07 13:28:00 2025-04-07 13:28:00 Outpatient Pedrito Green [facility] [id number] [facility] 2025-04-02 00:00:00 2025-04-02 08:35:18 [facility] 1.2.840.114 350.1.13.10 4.2.7.2.686 [id number] [facility] 2025-03-10 13:50:00 2025-04-02 00:00:00 Outpatient Pedrito Geren [facility] [id number] [facility] 2025-04-01 14:40:00 2025-04-01 14:43:00 [facility] 1.2.840.114 350.1.13.10 4.2.7.2.686 [id number] [facility] 2025-03-26 00:00:00 2025-03-26 00:00:00 Outpatient Visit LORI [id number] [id number] Dwayne Myers 2025-03-23 14:50:04 2025-03-23 14:50:04 Outpatient SFA LORI 720 Dwayne Myers 2025-03-23 00:00:00 2025-03-23 00:00:00 Outpatient Visit SFA [id number] Dwayne Myers 2025-03-11 13:13:36 2025-03-11 13:13:36 Outpatient SFA SFA 0709 Dwayne Myers 2025-03-11 00:00:00 2025-03-11 00:00:00 Outpatient Visit SFA [id number] ba3-4e86-[id number] Dwayne Myers 2025-02-16 05:38:00 2025-02-16 05:38:00 Outpatient Pedrito Baez [facility] [id number] [facility] 2025-02-12 10:46:47 2025-02-12 10:46:47 Outpatient SFA [facility] 611 Dwayne Myers 2025-02-11 10:00:21 2025-02-11 10:00:21 Outpatient SFA [facility] 11 Dwayne Myers 2025-02-11 00:00:00 2025-02-11 00:00:00 Outpatient Visit SFA [id number] Dwayne Myers 2025-02-05 22:08:00 2025-02-05 22:08:00 Outpatient Pedrito Baez [facility] [id number] [facility] 2025-01-27 15:02:09 2025-01-27 15:02:09 Outpatient SFA SFA 526 Dwayne Myers 2025-01-27 00:00:00 2025-01-27 00:00:00 Outpatient Visit SFA [id number] Dwayne Myers 2025-01-21 16:34:20 2025-01-21 16:34:20 Outpatient SFA SFA 21 Dwayne Myers 2025-01-21 00:00:00 2025-01-21 00:00:00 Outpatient Visit [facility] [id number] Dwayne Myers 2025-01-15 00:00:00 2025-01-15 10:24:22 Telephone Mayuri Rush [facility] 1.2.840.114 350.1.13.10 4.2.7.2.686 [id number] [facility] 2025-01-08 10:55:33 2025-01-08 10:55:33 Outpatient SFA [facility] 0508 Dwayne Myers 2025-01-08 00:00:00 2025-01-08 00:00:00 Outpatient Visit [facility] [id number] Dwayne Bah [place] 2024-12-31 00:00:00 2025-01-01 13:51:49 Telephone Victor Manuel [facility] 1.2.840.114 350.1.13.10 4.2.7.2.686 [id number] [facility] 2024-12-30 00:00:00 2024-12-31 08:32:26 [facility] 1.2.840.114 350.1.13.10 4.2.7.2.686 [id number] [facility] 2024-12-19 10:35:41 2024-12-19 10:35:41 Outpatient SFA [facility] 8 Dwayne Myers 2024-12-19 00:00:00 2024-12-19 00:00:00 Outpatient Visit [facility] [id number] [id number]-[id number] Dwayne Myers 2024-12-18 10:38:48 2024-12-18 10:38:48 Outpatient SFA [facility] 7 Dwayne Myers 2024-12-18 00:00:00 2024-12-18 00:00:00 Outpatient Visit [facility] [id number] Dwayne Myers 2024-12-11 13:58:57 2024-12-11 13:58:57 Outpatient [facility] 0410 Dwayne Myers 2024-12-09 09:32:11 2024-12-09 09:32:11 Outpatient [facility] 0408 Dwayne Bah [place] 2024-11-26 11:25:06 2024-11-26 11:25:06 Outpatient [facility] 0326 Dwayne Bah [place] 2024-11-26 00:00:00 2024-11-26 00:00:00 Outpatient Visit [facility] [id number] Dwayne Bah [place] 2024-11-05 15:52:40 2024-11-05 15:52:40 Outpatient SFA [facility] 0305 Dwayne Bah [place] 2024-11-05 00:00:00 2024-11-05 00:00:00 Outpatient Visit [facility] [id number] [id number] Dwayne Bah [place] 2024-10-22 13:40:00 2024-10-22 14:07:35 Outpatient R MAYURI RUSH [facility] [id number] [facility] 2024-10-22 13:40:00 2024-10-22 14:07:35 Office Visit Mayuri Rush [facility] 09.04.840.114 350.1.13.10 4.2.7.2.686 [id number] [facility] 2024-01-10 00:00:00 2024-10-18 07:49:23 Orders Only Doctor Unassigned, Springer Doctor Unassigned, Springer [facility] ..840.114 350.1.13.10 4.2.7.2.686 [id number] [facility] 2024-09-17 12:01:07 2024-09-17 12:01:07 Outpatient SFA [facility] 0115 Dwayne Myers 2024-09-17 00:00:00 2024-09-17 00:00:00 Outpatient Visit [facility] [id number] [id number] dcf1b4 Dwayne Myers 2024-09-15 00:00:00 2024-09-15 08:56:28 Transition of Care Chad Rivera Michele A [facility] 1.2.840.114 350.1.13.10 4.2.7.2.686 [id number] [facility] 2024-09-10 20:08:00 2024-09-12 18:25:00 Outpatient X FLASH KIMBALL [facility] [id number] [facility] 2024-09-10 20:08:00 2024-09-12 18:25:00 Emergency Maury Brush, Flash Cason [facility] 1.2.840.114 350.1.13.10 4.2.7.2.686 [id number] [facility] 2024-09-10 14:19:39 2024-09-10 14:19:39 Outpatient SFA [facility] 0108 Dwayne Myers 2024-09-10 00:00:00 2024-09-10 00:00:00 Outpatient Visit [facility] [id number] Dwayne Myers 2024-07-08 14:30:21 2024-07-08 14:30:21 Outpatient SFA [facility] 1105 Dwayne Bah [place] 2024-07-08 00:00:00 2024-07-08 00:00:00 Outpatient Visit [facility] [id number] Dwayne Myers 2024-07-07 19:36:00 2024-07-07 23:16:00 Emergency X UMM MANZANARES NADIM MSJS ERT [id number] [facility] 2024-07-07 19:36:00 2024-07-07 23:16:00 Emergency Umm Manzanares [facility] 1.2.840.114 350.1.13.10 4.2.7.2.686 [id number] [facility] 2024-06-30 15:05:17 2024-06-30 15:05:17 Outpatient [facility] 1028 Dwayne Myers 2024-06-27 14:15:46 2024-06-27 14:15:46 Outpatient SFA [facility] 1025 Dwayne Myers 2024-06-26 15:49:57 2024-06-26 15:49:57 Outpatient SFA [facility] 1024 Dwayne Myers 2024-06-26 00:00:00 2024-06-26 00:00:00 Outpatient Visit [facility] [id number] Dwayne Myers 2024-06-19 06:47:00 2024-06-19 10:00:00 Outpatient LINDSEY PADILLA [facility] [id number] [facility] 2024-06-19 06:47:00 2024-06-19 06:47:00 Outpatient LINDSEY PADILLA [facility] [id number] [facility] 2024-06-05 06:45:00 2024-06-05 09:25:00 Outpatient LINDSEY PADILLA [facility] [id number] [facility] 2024-06-05 06:45:00 2024-06-05 09:25:00 Outpatient LINDSEY PADILLA SAMIR [facility] [id number] [facility] 2024-05-13 17:15:56 2024-05-13 17:15:56 Outpatient SFA SFA 0910 Dwayne Myers 2024-05-13 00:00:00 2024-05-13 00:00:00 Outpatient Visit SFA [id number] [id number] [id number]-[id number] Dwayne Myers 2024-04-16 11:29:46 2024-04-16 11:29:46 Outpatient SFA SFA 813 Dwayne Myers 2024-04-16 00:00:00 2024-04-16 00:00:00 Outpatient Visit SFA [id number]-a [id number] Dwayne Myers 2024-04-15 11:08:26 2024-04-15 11:08:26 Outpatient SFA SFA 812 Dwayne Myers 2024-04-15 00:00:00 2024-04-15 00:00:00 Outpatient Visit SFA [id number] dffaa1 Dwayne Myers 2024-04-10 15:16:22 2024-04-10 15:16:22 Outpatient SFA SFA 807 Dwayne Myers 2024-04-08 11:32:44 2024-04-08 11:32:44 Outpatient SFA SFA 805 Dwayne Bah [place] 2024-04-08 00:00:00 2024-04-08 00:00:00 Outpatient Visit SFA [id number] Dwayne Myers 2024-04-01 10:49:16 2024-04-01 10:49:16 Outpatient SFA SFA 0730 Dwayne Myers 2024-03-31 16:14:36 2024-03-31 16:14:36 Outpatient SFA SFA 728 Dwayne Myers 2024-03-31 00:00:00 2024-03-31 00:00:00 Outpatient Visit LORI [id number] Dwayne Myers 2024-03-22 17:10:00 2024-03-22 20:43:00 Emergency X JIMY CAMERON NISHA JIMY [facility] ERT [id number] [facility] 2024-03-22 17:10:00 2024-03-22 20:43:00 Emergency Jimy Cameron [facility] 1.840.114 350.1.13.10 4.2.7.2.686 [id number] [facility] 2024-03-22 06:36:00 2024-03-22 09:36:00 Emergency X MK HERNANDEZ ANDRES [facility] ERT [id number] [facility] 2024-03-22 06:36:00 2024-03-22 09:36:00 [facility] 1.840.114 350.1.13.10 4.2.7.2.686 [id number] [facility] 2024-01-18 13:20:00 2024-01-18 13:20:00 [facility] [id number] [facility] 2024-01-16 09:00:00 2024-01-16 09:45:34 Outpatient R [facility] [id number] [facility] 2024-01-16 09:00:00 2024-01-16 09:45:34 Office Visit Victor Manuel [facility] 1..840.114 350.1.13.10 4.2.7.2.686 [id number] [facility] 2024-01-16 00:00:00 2024-01-16 00:00:00 Telephone Mayuri Rush [facility] 1.2.840.114 350.1.13.10 4.2.7.2.686 [id number] [facility] 2024-01-08 09:53:36 2024-01-08 09:53:36 Outpatient [facility] 506 Dwayne Bah [place] 2024-01-07 15:46:41 2024-01-07 15:46:41 Outpatient SFA [facility] 505 Dwayne Bah [place] 2024-01-03 13:52:03 2024-01-03 13:52:03 Outpatient [facility] 2 Dwayne Bah [place] 2024-01-03 00:00:00 2024-01-03 00:00:00 Outpatient Visit [facility] [id number]-a [id number] [id number] Dwayne Bah [place] 2023-12-31 13:25:23 2023-12-31 13:25:23 Outpatient SFA [facility] 0429 Dwayne Bah [place] 2023-12-31 00:00:00 2023-12-31 00:00:00 Outpatient Visit [facility] [id number]-b [id number] Dwayne Bah [place] 2023-12-10 15:24:04 2023-12-10 15:24:04 Outpatient [facility] 0408 Dwayne Bah [place] 2023-10-12 19:30:00 2023-10-12 23:58:00 Emergency X MONIKENYATTA [facility] ERT [id number] [facility] 2023-10-12 19:30:00 2023-10-12 23:58:00 Emergency Monikenyatta [facility] ([facility] 1.2.840.114 350.1.13.10 4.2.7.2.686 [id number] [facility] 2023-09-25 08:35:13 2023-09-25 08:35:13 Outpatient SFA [facility] 0123 Dwayne Myers 2023-08-23 14:14:42 2023-08-23 14:14:42 Outpatient [facility] 1221 Dwayne Myers 2023-08-23 00:00:00 2023-08-23 00:00:00 Orders Only Doctor Unassigned, Springer [facility] 1.2.840.114 350.1.13.10 4.2.7.2.686 [id number] [facility] 2023-07-30 11:27:18 2023-07-30 11:27:18 Outpatient [facility] 1127 Dwayne Myers 2023-07-23 13:48:13 2023-07-23 13:48:13 Outpatient [facility] 1120 Dwayne Myers 2023-07-10 14:42:08 2023-07-10 14:42:08 Outpatient [facility] 1107 Dwayne Myers 2023-06-26 11:04:41 2023-06-26 11:04:41 Outpatient [facility] 1024 Dwayne Myers 2023-06-12 14:49:18 2023-06-12 14:49:18 Outpatient [facility] 1010 Dwayne Myers 2023-06-03 21:46:00 2023-06-03 23:33:00 Emergency E ALIRIO, COLLETTE ALIRIO, [facility]CC [id number] [facility] 2023-06-03 21:46:00 2023-06-03 23:33:00 Emergency E ALIRIO, COLLETTE ALIRIO, COLLETTE [facility] ECC [id number] [facility] 2023-05-30 10:27:39 2023-05-30 10:27:39 Outpatient [facility]FA [facility] 0927 Dwayne Myers 2023-05-04 14:49:00 2023-05-04 16:40:00 Emergency E MANAN WONG, MANAN [facility] ECC [id number] [facility] 2023-05-03 10:11:47 2023-05-03 10:11:47 Outpatient SFA [facility] 0831 Dwayne Myers 2023-04-30 08:40:38 2023-04-30 08:40:38 Outpatient SFA [facility] 0828 Dwayne Myers 2023-04-26 14:46:53 2023-04-26 14:46:53 Outpatient SFA [facility] 0824 Dwayne Myers 2023-04-24 08:12:09 2023-04-24 08:12:09 Outpatient [facility]FA [facility] 0822 Dwayne Myers 2023-04-14 21:33:00 2023-04-15 05:47:00 Emergency E CLYDE LEGGETT [facility] ECC [id number] [facility] 2023-03-19 10:19:29 2023-03-19 10:19:29 Outpatient [facility]FA [facility] 0717 Dwayne Myers 2023-02-19 09:15:24 2023-02-19 09:15:24 Outpatient [facility] 0619 Dwayne Myers 2023-02-08 07:25:00 2023-02-08 11:19:00 Outpatient Jonh WOODSONBHUMIKA PIERREIR [facility] [id number] [facility] 2022-12-25 15:45:30 2022-12-25 15:45:30 Outpatient [facility] 0424 Dwayne Myers 2022-12-25 00:00:00 2022-12-25 00:00:00 Orders Only Doctor Unassigned, Springer [facility] 1.2.840.114 350.1.13.10 4.2.7.2.686 [id number] [facility] 2022-12-21 13:08:22 2022-12-21 13:08:22 Outpatient [facility]FA [facility] 0420 Dwayne Myers 2022-12-19 09:43:00 2022-12-19 09:43:00 Outpatient SFA [facility] 0418 Dwayne Myers 2022-12-11 20:12:00 2022-12-11 22:35:00 Emergency LÁZARO SAWYER [facility] [address] [id number] [facility] 2022-12-10 19:03:00 2022-12-10 20:52:00 Emergency OREN MURILLO [facility] ERT [id number] [facility] 2022-12-10 19:03:00 2022-12-10 20:52:00 Emergency Oren Tovar [facility] 1..840.114 350.1.13.10 4.2.7.2.686 [id number] [facility] 2022-11-23 09:56:39 2022-11-23 09:56:39 Outpatient [facility]FA [facility] 3 Dwayne Myers 2022-11-22 00:00:00 2022-11-22 00:00:00 Orders Only Doctor Unassigned, Springer [facility] 1..840.114 350.1.13.10 4.2.7.2.686 [id number] [facility] 2022-11-21 08:34:36 2022-11-21 08:34:36 Outpatient [facility] 0321 Dwayne Myers 2022-11-04 21:58:00 2022-11-05 17:13:00 Outpatient X RAÚL [facility] [id number] [facility] 2022-11-04 21:58:00 2022-11-05 17:13:00 Emergency Yuniel Mccray Ali [facility] 1..840.114 350.1.13.10 4.2.7.2.686 [id number] [facility] 2022-10-02 10:16:38 2022-10-02 10:16:38 Outpatient [facility] 0130 Dwayne F [place] 2022-09-25 10:41:57 2022-09-25 10:41:57 Outpatient [facility] 3 Dwayne Myers 2022-09-25 00:00:00 2022-09-25 00:00:00 Outpatient Visit [id number] [id number]-[id number] 2022-09-22 10:48:03 2022-09-22 10:48:03 Outpatient [facility] [id number] Dwayne Myers 2022-09-21 15:48:42 2022-09-21 15:48:42 Outpatient [facility] [id number] Dwayne Myers 2022-09-21 00:00:00 2022-09-21 00:00:00 Outpatient Visit [id number] 2022-08-17 10:58:00 2022-08-17 13:20:00 Outpatient LINDSEY PADILLA [facility] [id number] [facility] 2022-08-11 11:20:53 2022-08-11 11:20:53 Outpatient [facility] [id number] Dwayne Myers 2022-08-11 00:00:00 2022-08-11 00:00:00 Outpatient Visit [id number] 2022-07-25 19:54:00 2022-07-27 14:01:00 [id number] 2022-07-25 19:54:00 2022-07-27 14:01:00 Emergency Sabianist, Umm Hernández, [facility] 1.2.840.114 350.1.13.10 4.2.7.2.686 [id number] [facility] 2022-07-20 13:25:00 2022-07-20 16:55:00 Outpatient Jonh LINDSEY CAMERON [facility] [id number] [facility] 2022-06-24 19:56:00 2022-06-26 05:00:00 Inpatient X ANAYA KLINE [facility] [id number] [facility] 2022-06-24 19:56:00 2022-06-26 05:00:00 Hospital Encounter Jaden Siddiqui [facility] ([facility]) 1.2.840.114 350.1.13.10 4.2.7.2.686 [id number] [facility] 2022-06-23 18:38:00 2022-06-23 23:25:00 Emergency E LORAINE MELO [facility] ECC [id number] [facility] 2022-06-21 23:43:00 2022-06-22 10:50:00 Outpatient E CHRISTIAN VITAL [facility] TELE [id number] [facility] 2022-06-15 11:12:00 2022-06-15 15:38:00 Outpatient Jonh WOODSONIGNACIO LINDSEY [facility] [id number] [facility] 2022-06-08 00:00:00 2022-06-08 00:00:00 Orders Only Doctor Unassigned, [facility] 1.2.840.114 350.1.13.10 4.2.7.2.686 [id number] [facility] 2022-05-31 20:15:00 2022-05-31 22:49:00 Emergency X GABRIEL GARCIA [facility] ERT [id number] [facility] 2022-05-31 20:15:00 2022-05-31 22:49:00 Emergency Gabriel Garcia [facility] 1..840.114 350.1.13.10 4.2.7.2.686 [id number] [facility] 2022-05-11 11:42:00 2022-05-11 23:59:00 Outpatient LINDSEY PADILLA [facility] [id number] [facility] 2022-04-17 20:00:00 2022-04-17 20:00:00 Outpatient R WILMAR MADISON STRAHIL [facility] [id number] [facility] 2022-04-15 08:00:00 2022-04-15 08:00:00 Outpatient R [facility] [id number] [facility] 2022-04-15 00:00:00 2022-04-15 00:00:00 Outpatient Visit [id number] 12:15:00 2022-04-06 16:00:00 Outpatient LINDSEY PADILLA [facility] [id number] [facility] 2022-03-15 20:00:00 2022-03-15 22:30:00 Acid Regenerator Visit 1, [facility] Sleep Lab Bed Wilmar Madison [facility] 1..840.114 350.1.13.10 4.2.7.2.686 [id number] [facility] 2022-03-15 20:00:00 2022-03-15 20:00:00 Outpatient R WILMAR MADISON STRAHIL [facility] [id number] [facility] 2022-03-14 15:30:00 2022-03-14 15:45:00 Laboratory Only Only, [facility] Test Wilmar Madison [facility] 1.2.840.114 350.1.13.10 4.2.7.2.686 [id number] [facility] 2022-03-14 15:30:00 2022-03-14 15:30:00 Outpatient R WILMAR MADISON STRAHIL [facility] [id number] [facility] 2022-03-14 00:00:00 2022-03-14 00:00:00 Orders Only Doctor Unassigned, [facility] 1.2.840.114 350.1.13.10 4.2.7.2.686 [id number] [facility] 2022-02-25 18:18:00 2022-02-26 12:30:00 Outpatient X MICHAEL SHARMA [facility] ERIN [id number] [facility] 2022-02-25 18:18:00 2022-02-26 12:30:00 Emergency Jimy Cameronlewis [facility] ([facility]) 1.2.840.114 350.1.13.10 4.2.7.2.686 [id number] [facility] 2022-02-22 21:42:00 2022-02-23 01:19:00 Emergency X ANNBRO [facility] ERT [id number] [facility] 2022-02-22 21:42:00 2022-02-23 01:19:00 Emergency Ann Bro [facility] 1.2.840.114 350.1.13.10 4.2.7.2.686 [id number] [facility] 2022-01-29 14:38:00 2022-01-29 16:55:00 Emergency X JADEN SIDDIQUI LEANDRO [facility] ERT [id number] [facility] 2022-01-29 14:38:00 2022-01-29 16:55:00 Emergency Jaden Siddiqui [facility] ([facility]) 1.2.840.114 350.1.13.10 4.2.7.2.686 [id number] [facility] 2022-01-29 07:51:00 2022-01-29 10:37:00 Emergency X MAI DEL ROSARIO [facility] ERT [id number] [facility] 2022-01-29 07:51:00 2022-01-29 10:37:00 Emergency Mai Del Rosario [facility] 1.2.840.114 350.1.13.10 4.2.7.2.686 [id number] [facility] 2022-01-05 10:46:00 2022-01-05 14:42:00 Outpatient LINDSEY PADILLA [facility] [id number] [facility] 2022-01-02 21:43:00 2022-01-03 00:14:00 Emergency X JACKLYN GUILLEN [facility] ERT [id number] [facility] 2022-01-02 21:43:00 2022-01-03 00:14:00 Emergency Jacklyn Guillen [facility] 1.2.840.114 350.1.13.10 4.2.7.2.686 [id number] [facility] 2021-12-08 00:00:00 2021-12-08 00:00:00 Transition of Care [facility] 1.2.840.114 350.1.13.10 4.2.7.2.686 [id number] [facility] 2021-12-05 17:33:00 2021-12-07 12:01:00 Inpatient X GELY HERNANDEZ [facility] ERIN [id number] [facility] 2021-12-05 17:33:00 2021-12-07 12:01:00 Hospital Encounter Oren Tovar Wakili S Lakhani Gely [facility] 1.2840.114 350.1.13.10 4.2.7.2.686 [id number] [facility] 2021-12-03 12:50:00 2021-12-05 05:42:00 Outpatient X MICHEL [facility] [id number] [facility] 2021-12-03 12:50:00 2021-12-05 05:42:00 [facility] 1.2.840.114 350.1.13.10 4.2.7.2.686 [id number] [facility] 2021-11-23 00:00:00 2021-11-23 00:00:00 Orders Only Doctor Unassigned, [facility] 1.2.840.114 350.1.13.10 4.2.7.2.686 [id number] [facility] 2021-11-15 00:00:00 2021-11-15 00:00:00 Edelmira Leblanc [facility] ([facility]) 1.2.840.114 350.1.13.10 4.2.7.2.686 [id number] [facility] 2021-11-09 18:47:00 2021-11-11 17:31:00 [facility] [id number] [facility] 2021-11-09 18:47:00 2021-11-11 17:31:00 [facility] 1.2840.114 350.1.13.10 4.2.7.2.686 [id number] [facility] 2021-11-07 00:00:00 2021-11-07 00:00:00 Orders Only Doctor Unassigned, [facility] 1.2.840.114 350.1.13.10 4.2.7.2.686 [id number] [id number] [facility] 2021-11-03 00:00:00 2021-11-03 00:00:00 Orders Only Doctor Unassigned, [facility] 1.2.840.114 350.1.13.10 4.2.7.2.686 [id number] [facility] 2021-10-25 00:00:00 2021-10-25 00:00:00 Transition of Care [place] [facility] 1.2840.114 350.1.13.10 4.2.7.2.686 [id number] [facility] 2021-10-15 00:23:00 2021-10-24 17:53:00 Inpatient U REHANA [facility] ERIN [id number] [facility] 2021-10-15 00:23:00 2021-10-24 17:53:00 Hospital Encounter Blanca [facility]alavera[facility] 1.2.840.114 350.1.13.10 4.2.7.2.686 [id number] [facility] 2021-10-21 10:00:00 2021-10-21 10:45:00 Surgery Abu Atherlewis, Anaya [facility] ([facility]) 1.2.840.114 350.1.13.10 4.2.7.2.686 [id number] [facility] 2021-06-09 00:00:00 2021-06-09 00:00:00 Orders Only Doctor Unassigned, [facility] 1.2.840.114 350.1.13.10 4.2.7.2.686 [id number] [facility] 2012-11-25 00:00:00 2012-11-25 16:37:20 Outpatient GABRIEL SHAIKH BRENT [facility] [id number] [facility] 2012-04-08 00:00:00 2012-04-08 16:51:12 Outpatient [facility] [id number] [facility] 2011-04-13 00:00:00 2011-04-13 10:43:11 [place] [facility] [place] [id number] [facility] 2010-09-15 00:00:00 2010-09-15 11:23:44 Outpatient [facility] [id number] [facility] 2010-03-11 00:00:00 2010-03-11 16:25:54 Outpatient [facility] [id number] [facility] 2009-09-13 00:00:00 2009-09-13 16:22:48 Outpatient [facility] [id number] [facility] 2009-08-31 00:00:00 2009-08-31 09:36:31 Outpatient [facility] [id number] [facility] Results Test Description Test Time Test Comments Results Result Co mments Source [id number] 06:11:00* Test Item Value Reference Range Interpretation Comme nts GLUBED (test code = GLUBED) 68 mg/dL 74-106 L Performed by cer tified radiotelephone technical operator at [facility] BV/VAGINITIS PANEL DNA [id number] 00:00:00* Test Item Value Reference Range Interpretation Comme nts TRICHOMONAS: (test code = 6568-0) NOT DETECTED GARDNERELLA: (test code = 6410-5) NOT DETECTED DEB: (test code = 87559-1) NOT DETECTED Dwayne Bah AustinCULTURE, URINE, [id number] 00:00:00* Test Item Value Reference Range Interpretation Comme nts CULTURE, URINE, ROUTINE (ector t code = 630-4) SEE NOTE Dwayne Bah AustinCULTURE, URINE, [id number] 00:00:00* Test Item Value Reference Range Interpretation Comme nts CULTURE, URINE, ROUTINE (ector t code = 630-4) SEE NOTE Dwayne Bah AustinBV/VAGINITIS PANEL DNA [id number] 00:00:00* Test Item Value Reference Range Interpretation Comme nts TRICHOMONAS: (test code = 6568-0) NOT DETECTED GARDNERELLA: (test code = 6410-5) NOT DETECTED DEB: (test code = 31916-1) NOT DETECTED Dwayne Bah AustinBV/VAGINITIS PANEL DNA [id number] 00:00:00* Test Item Value Reference Range Interpretation Comme nts TRICHOMONAS: (test code = 6568-0) NOT DETECTED GARDNERELLA: (test code = 6410-5) NOT DETECTED DEB: (test code = 66290-2) NOT DETECTED Dwayne Bah AustinCULTURE, URINE, [id number] 00:00:00* Test Item Value Reference Range Interpretation Comme nts CULTURE, URINE, ROUTINE (ector t code = 630-4) SEE NOTE Dwayne Bah AustinCULTURE, URINE, [id number] 00:00:00* Test Item Value Reference Range Interpretation Comme nts CULTURE, URINE, ROUTINE (ector t code = 630-4) SEE NOTE Dwayne Bah AustinBV/VAGINITIS PANEL DNA [id number] 00:00:00* Test Item Value Reference Range Interpretation Comme nts TRICHOMONAS: (test code = 6568-0) NOT DETECTED GARDNERELLA: (test code = 6410-5) NOT DETECTED DEB: (test code = 22103-4) NOT DETECTED Dwayne Bah AustinBASIC METABOLIC [id number] 00:00:00* Test Item Value Reference Range Interpretation Comme nts GLUCOSE (test code = 2345-7) 89 mg/dL UREA NITROGEN (BUN) (test code = 3094-0) 9 mg/dL CREATININE (test code = 2160-0) 1.00 mg/dL EGFR (test code = 95300-0) 67 mL/min/1.73m2 BUN/CREATININE RATIO (test code = 3097-3) SEE NOTE: (calc) SODIUM (test code = 2951-2) 139 mmol/L POTASSIUM (test code = 2823-3) 4.0 mmol/L CHLORIDE (test code = 2075-0) 104 mmol/L CARBON DIOXIDE (test code = 2027-9) 28 mmol/L CALCIUM (test code = 57046-8) 9.5 mg/dL Dwayne MyersC (INCLUDES DIFF/PLT)[id number] 00:00:00* Test Item Value Reference Range Interpretation Comme nts WHITE BLOOD CELL COUNT (test code = 6690-2) 5.5 Thousand/uL RED BLOOD CELL COUNT (test code = 789-8) 4.85 Million/uL HEMOGLOBIN (test code = 718-7) 13.3 g/dL HEMATOCRIT (test code = 4544-3) 41.6 % MCV (test code = 787-2) 85.8 fL MCH (test code = 785-6) 27.4 pg MCHC (test code = 786-4) 32.0 g/dL RDW (test code = 788-0) 16.0 % PLATELET COUNT (test code = 777-3) 315 Thousand/uL MPV (test code = 776-5) 12.0 fL ABSOLUTE NEUTROPHILS (test code = 751-8) 2580 cells/uL ABSOLUTE BAND NEUTROPHILS (test code = 74702-2) DNR cells/uL ABSOLUTE METAMYELOCYTES (ector t code = 44149-1) DNR cells/uL ABSOLUTE MYELOCYTES (test code = 83300-8) DNR cells/uL ABSOLUTE PROMYELOCYTES (test code = 93314-6) DNR cells/uL ABSOLUTE LYMPHOCYTES (test code = 731-0) 2206 cells/uL ABSOLUTE MONOCYTES (test cod e = 742-7) 446 cells/uL ABSOLUTE EOSINOPHILS (test code = 711-2) 171 cells/uL ABSOLUTE BASOPHILS (test cod e = 704-7) 99 cells/uL ABSOLUTE BLASTS (test code = 04340-5) DNR cells/uL ABSOLUTE NUCLEATED RBC (test code = 53171-5) DNR cells/uL NEUTROPHILS (test code = 770-8) 46.9 % BAND NEUTROPHILS (test code = 764-1) DNR % METAMYELOCYTES (test code = 740-1) DNR % MYELOCYTES (test code = 749-2) DNR % PROMYELOCYTES (test code = 783-1) DNR % LYMPHOCYTES (test code = 736-9) 40.1 % REACTIVE LYMPHOCYTES (test code = 57144-0) DNR % MONOCYTES (test code = 5905-5) 8.1 % EOSINOPHILS (test code = 713-8) 3.1 % BASOPHILS (test code = 706-2) 1.8 % BLASTS (test code = 709-6) DNR % NUCLEATED RBC (test code = 23273-3) DNR /100WBC COMMENT(S) (test code = 8251-1) DNR Dwayne Bah AustinHEMOGLOBIN [id number] 00:00:00* Test Item Value Reference Range Interpretation Comme nts HEMOGLOBIN A1c (test code = 4548-4) 6.4 % Dwayne Bah AustinURINALYSIS [id number] 00:00:00* Test Item Value Reference Range Interpretation Comme nts COLOR (test code = 5778-6) YELLOW APPEARANCE (test code = 5767-9) CLEAR SPECIFIC GRAVITY (test code = 5811-5) 1.016 PH (test code = 5803-2) 5.5 GLUCOSE (test code = 77449-8) NEGATIVE BILIRUBIN (test code = 5770-3) NEGATIVE KETONES (test code = 2514-8) NEGATIVE OCCULT BLOOD (test code = 5794-3) NEGATIVE PROTEIN (test code = 69446-5) NEGATIVE NITRITE (test code = 5802-4) NEGATIVE LEUKOCYTE ESTERASE (test cod e = 5799-2) TRACE WBC (test code = 5821-4) NONE SEEN /HPF RBC (test code = 88757-1) NONE SEEN /HPF SQUAMOUS EPITHELIAL CELLS (test code = 97332-5) 6-10 /HPF TRANSITIONAL EPITHELIAL CELL S (test code = 86399-8) DNR /HPF RENAL EPITHELIAL CELLS (test code = 64734-6) DNR /HPF BACTERIA (test code = 5769-5) NONE SEEN /HPF CALCIUM OXALATE CRYSTALS (te st code = 63112-6) DNR /HPF TRIPLE PHOSPHATE CRYSTALS (test code = 80879-3) DNR /HPF URIC ACID CRYSTALS (test cod e = 72279-1) DNR /HPF AMORPHOUS SEDIMENT (test cod e = 8246-1) DNR /HPF CRYSTALS (test code = 60940-3) DNR /HPF HYALINE CAST (test code = 5796-8) NONE SEEN /LPF GRANULAR CAST (test code = 5793-5) DNR /LPF CASTS (test code = 9842-6) DNR /LPF YEAST (test code = 5822-2) DNR /HPF COMMENTS (test code = 8251-1) DNR Dwayne MyersPROTHROMBIN W/INR + PARTIAL THROMBOPLASTIN [id number] 00:00:00* Test Item Value Reference Range Interpretation Comme vivek PARTIAL THROMBOPLASTIN TIME, ACTIVATED (test code = 80187-6) 28 sec INR (test code = 6301-6) 1.0 PT (test code = 5902-2) 11.0 sec Dwayne MyersBASIC METABOLIC [id number] 00:00:00* Test Item Value Reference Range Interpretation Comme nts GLUCOSE (test code = 2345-7) 89 mg/dL UREA NITROGEN (BUN) (test code = 3094-0) 9 mg/dL CREATININE (test code = 2160-0) 1.00 mg/dL EGFR (test code = 98529-3) 67 mL/min/1.73m2 BUN/CREATININE RATIO (test code = 3097-3) SEE NOTE: (calc) SODIUM (test code = 2951-2) 139 mmol/L POTASSIUM (test code = 2823-3) 4.0 mmol/L CHLORIDE (test code = 2075-0) 104 mmol/L CARBON DIOXIDE (test code = 2027-9) 28 mmol/L CALCIUM (test code = 44476-7) 9.5 mg/dL Dwayne MyersCBC (INCLUDES DIFF/PLT)2025-01-22 00:00:00* Test Item Value Reference Range Interpretation Comme nts WHITE BLOOD CELL COUNT (test code = 6690-2) 5.5 Thousand/uL RED BLOOD CELL COUNT (test code = 789-8) 4.85 Million/uL HEMOGLOBIN (test code = 718-7) 13.3 g/dL HEMATOCRIT (test code = 4544-3) 41.6 % MCV (test code = 787-2) 85.8 fL MCH (test code = 785-6) 27.4 pg MCHC (test code = 786-4) 32.0 g/dL RDW (test code = 788-0) 16.0 % PLATELET COUNT (test code = 777-3) 315 Thousand/uL MPV (test code = 776-5) 12.0 fL ABSOLUTE NEUTROPHILS (test code = 751-8) 2580 cells/uL ABSOLUTE BAND NEUTROPHILS (test code = 83949-4) DNR cells/uL ABSOLUTE METAMYELOCYTES (ector t code = 19353-0) DNR cells/uL ABSOLUTE MYELOCYTES (test code = 33604-4) DNR cells/uL ABSOLUTE PROMYELOCYTES (test code = 96691-2) DNR cells/uL ABSOLUTE LYMPHOCYTES (test code = 731-0) 2206 cells/uL ABSOLUTE MONOCYTES (test cod e = 742-7) 446 cells/uL ABSOLUTE EOSINOPHILS (test code = 711-2) 171 cells/uL ABSOLUTE BASOPHILS (test cod e = 704-7) 99 cells/uL ABSOLUTE BLASTS (test code = 27660-3) DNR cells/uL ABSOLUTE NUCLEATED RBC (test code = 78210-6) DNR cells/uL NEUTROPHILS (test code = 770-8) 46.9 % BAND NEUTROPHILS (test code = 764-1) DNR % METAMYELOCYTES (test code = 740-1) DNR % MYELOCYTES (test code = 749-2) DNR % PROMYELOCYTES (test code = 783-1) DNR % LYMPHOCYTES (test code = 736-9) 40.1 % REACTIVE LYMPHOCYTES (test code = 95863-7) DNR % MONOCYTES (test code = 5905-5) 8.1 % EOSINOPHILS (test code = 713-8) 3.1 % BASOPHILS (test code = 706-2) 1.8 % BLASTS (test code = 709-6) DNR % NUCLEATED RBC (test code = 27243-1) DNR /100WBC COMMENT(S) (test code = 8251-1) DNR Dwayne Bah AustinHEMOGLOBIN [id number] 00:00:00* Test Item Value Reference Range Interpretation Comme nts HEMOGLOBIN A1c (test code = 4548-4) 6.4 % Dwayne Bah AustinURINALYSIS [id number] 00:00:00* Test Item Value Reference Range Interpretation Comme nts COLOR (test code = 5778-6) YELLOW APPEARANCE (test code = 5767-9) CLEAR SPECIFIC GRAVITY (test code = 5811-5) 1.016 PH (test code = 5803-2) 5.5 GLUCOSE (test code = 90573-2) NEGATIVE BILIRUBIN (test code = 5770-3) NEGATIVE KETONES (test code = 2514-8) NEGATIVE OCCULT BLOOD (test code = 5794-3) NEGATIVE PROTEIN (test code = 77402-2) NEGATIVE NITRITE (test code = 5802-4) NEGATIVE LEUKOCYTE ESTERASE (test cod e = 5799-2) TRACE WBC (test code = 5821-4) NONE SEEN /HPF RBC (test code = 98963-4) NONE SEEN /HPF SQUAMOUS EPITHELIAL CELLS (test code = 20768-8) 6-10 /HPF TRANSITIONAL EPITHELIAL CELL S (test code = 84930-6) DNR /HPF RENAL EPITHELIAL CELLS (test code = 19872-8) DNR /HPF BACTERIA (test code = 5769-5) NONE SEEN /HPF CALCIUM OXALATE CRYSTALS (te st code = 94429-2) DNR /HPF TRIPLE PHOSPHATE CRYSTALS (test code = 54921-4) DNR /HPF URIC ACID CRYSTALS (test cod e = 19078-6) DNR /HPF AMORPHOUS SEDIMENT (test cod e = 8246-1) DNR /HPF CRYSTALS (test code = 69587-6) DNR /HPF HYALINE CAST (test code = 5796-8) NONE SEEN /LPF GRANULAR CAST (test code = 5793-5) DNR /LPF CASTS (test code = 9842-6) DNR /LPF YEAST (test code = 5822-2) DNR /HPF COMMENTS (test code = 8251-1) DNR Dwayne F AustinPROTHROMBIN W/INR + PARTIAL THROMBOPLASTIN [id number] 00:00:00* Test Item Value Reference Range Interpretation Comme nts PARTIAL THROMBOPLASTIN TIME, ACTIVATED (test code = 91057-2) 28 sec INR (test code = 6301-6) 1.0 PT (test code = 5902-2) 11.0 sec Dwayne F AustinBASIC METABOLIC [id number] 00:00:00* Test Item Value Reference Range Interpretation Comme nts GLUCOSE (test code = 2345-7) 89 mg/dL UREA NITROGEN (BUN) (test code = 3094-0) 9 mg/dL CREATININE (test code = 2160-0) 1.00 mg/dL EGFR (test code = 09175-9) 67 mL/min/1.73m2 BUN/CREATININE RATIO (test code = 3097-3) SEE NOTE: (calc) SODIUM (test code = 2951-2) 139 mmol/L POTASSIUM (test code = 2823-3) 4.0 mmol/L CHLORIDE (test code = 2075-0) 104 mmol/L CARBON DIOXIDE (test code = 2027-9) 28 mmol/L CALCIUM (test code = 45568-5) 9.5 mg/dL [facility] (INCLUDES DIFF/PLT)2025-01-22 00:00:00* Test Item Value Reference Range Interpretation Comme nts WHITE BLOOD CELL COUNT (test code = 6690-2) 5.5 Thousand/uL RED BLOOD CELL COUNT (test code = 789-8) 4.85 Million/uL HEMOGLOBIN (test code = 718-7) 13.3 g/dL HEMATOCRIT (test code = 4544-3) 41.6 % MCV (test code = 787-2) 85.8 fL MCH (test code = 785-6) 27.4 pg MCHC (test code = 786-4) 32.0 g/dL RDW (test code = 788-0) 16.0 % PLATELET COUNT (test code = 777-3) 315 Thousand/uL MPV (test code = 776-5) 12.0 fL ABSOLUTE NEUTROPHILS (test code = 751-8) 2580 cells/uL ABSOLUTE BAND NEUTROPHILS (test code = 39124-5) DNR cells/uL ABSOLUTE METAMYELOCYTES (ector t code = 08713-2) DNR cells/uL ABSOLUTE MYELOCYTES (test code = 45843-0) DNR cells/uL ABSOLUTE PROMYELOCYTES (test code = 14441-8) DNR cells/uL ABSOLUTE LYMPHOCYTES (test code = 731-0) 2206 cells/uL ABSOLUTE MONOCYTES (test cod e = 742-7) 446 cells/uL ABSOLUTE EOSINOPHILS (test code = 711-2) 171 cells/uL ABSOLUTE BASOPHILS (test cod e = 704-7) 99 cells/uL ABSOLUTE BLASTS (test code = 01084-7) DNR cells/uL ABSOLUTE NUCLEATED RBC (test code = 66468-9) DNR cells/uL NEUTROPHILS (test code = 770-8) 46.9 % BAND NEUTROPHILS (test code = 764-1) DNR % METAMYELOCYTES (test code = 740-1) DNR % MYELOCYTES (test code = 749-2) DNR % PROMYELOCYTES (test code = 783-1) DNR % LYMPHOCYTES (test code = 736-9) 40.1 % REACTIVE LYMPHOCYTES (test code = 64201-7) DNR % MONOCYTES (test code = 5905-5) 8.1 % EOSINOPHILS (test code = 713-8) 3.1 % BASOPHILS (test code = 706-2) 1.8 % BLASTS (test code = 709-6) DNR % NUCLEATED RBC (test code = 25116-4) DNR /100WBC COMMENT(S) (test code = 8251-1) DNR Dwayne F AustinHEMOGLOBIN [id number] 00:00:00* Test Item Value Reference Range Interpretation Comme nts HEMOGLOBIN A1c (test code = 4548-4) 6.4 % Dwayne Bah AustinURINALYSIS [id number] 00:00:00* Test Item Value Reference Range Interpretation Comme nts COLOR (test code = 5778-6) YELLOW APPEARANCE (test code = 5767-9) CLEAR SPECIFIC GRAVITY (test code = 5811-5) 1.016 PH (test code = 5803-2) 5.5 GLUCOSE (test code = 85097-5) NEGATIVE BILIRUBIN (test code = 5770-3) NEGATIVE KETONES (test code = 2514-8) NEGATIVE OCCULT BLOOD (test code = 5794-3) NEGATIVE PROTEIN (test code = 33124-4) NEGATIVE NITRITE (test code = 5802-4) NEGATIVE LEUKOCYTE ESTERASE (test cod e = 5799-2) TRACE WBC (test code = 5821-4) NONE SEEN /HPF RBC (test code = 48046-4) NONE SEEN /HPF SQUAMOUS EPITHELIAL CELLS (test code = 22692-6) 6-10 /HPF TRANSITIONAL EPITHELIAL CELL S (test code = 70325-7) DNR /HPF RENAL EPITHELIAL CELLS (test code = 88115-8) DNR /HPF BACTERIA (test code = 5769-5) NONE SEEN /HPF CALCIUM OXALATE CRYSTALS (te st code = 57656-7) DNR /HPF TRIPLE PHOSPHATE CRYSTALS (test code = 26448-1) DNR /HPF URIC ACID CRYSTALS (test cod e = 99545-6) DNR /HPF AMORPHOUS SEDIMENT (test cod e = 8246-1) DNR /HPF CRYSTALS (test code = 87069-5) DNR /HPF HYALINE CAST (test code = 5796-8) NONE SEEN /LPF GRANULAR CAST (test code = 5793-5) DNR /LPF CASTS (test code = 9842-6) DNR /LPF YEAST (test code = 5822-2) DNR /HPF COMMENTS (test code = 8251-1) DNR Dwayne Bah LouisPROTHROMBIN W/INR + PARTIAL THROMBOPLASTIN [id number] 00:00:00* Test Item Value Reference Range Interpretation Comme nts PARTIAL THROMBOPLASTIN TIME, ACTIVATED (test code = 98424-2) 28 sec INR (test code = 6301-6) 1.0 PT (test code = 5902-2) 11.0 sec Dwayne Bah LouisBASIC METABOLIC [id number] 00:00:00* Test Item Value Reference Range Interpretation Comme nts GLUCOSE (test code = 2345-7) 89 mg/dL UREA NITROGEN (BUN) (test code = 3094-0) 9 mg/dL CREATININE (test code = 2160-0) 1.00 mg/dL EGFR (test code = 45239-9) 67 mL/min/1.73m2 BUN/CREATININE RATIO (test code = 3097-3) SEE NOTE: (calc) SODIUM (test code = 2951-2) 139 mmol/L POTASSIUM (test code = 2823-3) 4.0 mmol/L CHLORIDE (test code = 2075-0) 104 mmol/L CARBON DIOXIDE (test code = 2027-9) 28 mmol/L CALCIUM (test code = 64024-9) 9.5 mg/dL Dwayne Bah LouisCBC (INCLUDES DIFF/PLT)2025-01-22 00:00:00* Test Item Value Reference Range Interpretation Comme nts WHITE BLOOD CELL COUNT (test code = 6690-2) 5.5 Thousand/uL RED BLOOD CELL COUNT (test code = 789-8) 4.85 Million/uL HEMOGLOBIN (test code = 718-7) 13.3 g/dL HEMATOCRIT (test code = 4544-3) 41.6 % MCV (test code = 787-2) 85.8 fL MCH (test code = 785-6) 27.4 pg MCHC (test code = 786-4) 32.0 g/dL RDW (test code = 788-0) 16.0 % PLATELET COUNT (test code = 777-3) 315 Thousand/uL MPV (test code = 776-5) 12.0 fL ABSOLUTE NEUTROPHILS (test code = 751-8) 2580 cells/uL ABSOLUTE BAND NEUTROPHILS (test code = 85658-2) DNR cells/uL ABSOLUTE METAMYELOCYTES (ector t code = 26429-3) DNR cells/uL ABSOLUTE MYELOCYTES (test code = 59428-5) DNR cells/uL ABSOLUTE PROMYELOCYTES (test code = 98463-2) DNR cells/uL ABSOLUTE LYMPHOCYTES (test code = 731-0) 2206 cells/uL ABSOLUTE MONOCYTES (test cod e = 742-7) 446 cells/uL ABSOLUTE EOSINOPHILS (test code = 711-2) 171 cells/uL ABSOLUTE BASOPHILS (test cod e = 704-7) 99 cells/uL ABSOLUTE BLASTS (test code = 79252-6) DNR cells/uL ABSOLUTE NUCLEATED RBC (test code = 32861-0) DNR cells/uL NEUTROPHILS (test code = 770-8) 46.9 % BAND NEUTROPHILS (test code = 764-1) DNR % METAMYELOCYTES (test code = 740-1) DNR % MYELOCYTES (test code = 749-2) DNR % PROMYELOCYTES (test code = 783-1) DNR % LYMPHOCYTES (test code = 736-9) 40.1 % REACTIVE LYMPHOCYTES (test code = 58319-9) DNR % MONOCYTES (test code = 5905-5) 8.1 % EOSINOPHILS (test code = 713-8) 3.1 % BASOPHILS (test code = 706-2) 1.8 % BLASTS (test code = 709-6) DNR % NUCLEATED RBC (test code = 18201-2) DNR /100WBC COMMENT(S) (test code = 8251-1) DNR Dwayne Bah AustinHEMOGLOBIN [id number] 00:00:00* Test Item Value Reference Range Interpretation Comme nts HEMOGLOBIN A1c (test code = 4548-4) 6.4 % Dwayne Bah AustinURINALYSIS [id number] 00:00:00* Test Item Value Reference Range Interpretation Comme nts COLOR (test code = 5778-6) YELLOW APPEARANCE (test code = 5767-9) CLEAR SPECIFIC GRAVITY (test code = 5811-5) 1.016 PH (test code = 5803-2) 5.5 GLUCOSE (test code = 13949-8) NEGATIVE BILIRUBIN (test code = 5770-3) NEGATIVE KETONES (test code = 2514-8) NEGATIVE OCCULT BLOOD (test code = 5794-3) NEGATIVE PROTEIN (test code = 21019-8) NEGATIVE NITRITE (test code = 5802-4) NEGATIVE LEUKOCYTE ESTERASE (test cod e = 5799-2) TRACE WBC (test code = 5821-4) NONE SEEN /HPF RBC (test code = 10389-3) NONE SEEN /HPF SQUAMOUS EPITHELIAL CELLS (test code = 52674-2) 6-10 /HPF TRANSITIONAL EPITHELIAL CELL S (test code = 86648-1) DNR /HPF RENAL EPITHELIAL CELLS (test code = 79732-0) DNR /HPF BACTERIA (test code = 5769-5) NONE SEEN /HPF CALCIUM OXALATE CRYSTALS (te st code = 55435-7) DNR /HPF TRIPLE PHOSPHATE CRYSTALS (test code = 48406-7) DNR /HPF URIC ACID CRYSTALS (test cod e = 36273-1) DNR /HPF AMORPHOUS SEDIMENT (test cod e = 8246-1) DNR /HPF CRYSTALS (test code = 80288-5) DNR /HPF HYALINE CAST (test code = 5796-8) NONE SEEN /LPF GRANULAR CAST (test code = 5793-5) DNR /LPF CASTS (test code = 9842-6) DNR /LPF YEAST (test code = 5822-2) DNR /HPF COMMENTS (test code = 8251-1) DNR Dwayne MyersPROTHROMBIN W/INR + PARTIAL THROMBOPLASTIN [id number] 00:00:00* Test Item Value Reference Range Interpretation Comme nts PARTIAL THROMBOPLASTIN TIME, ACTIVATED (test code = 22030-3) 28 sec INR (test code = 6301-6) 1.0 PT (test code = 5902-2) 11.0 sec Dwayne MyersBASIC METABOLIC [id number] 00:00:00* Test Item Value Reference Range Interpretation Comme nts GLUCOSE (test code = 2345-7) 89 mg/dL UREA NITROGEN (BUN) (test code = 3094-0) 9 mg/dL CREATININE (test code = 2160-0) 1.00 mg/dL EGFR (test code = 53001-6) 67 mL/min/1.73m2 BUN/CREATININE RATIO (test code = 3097-3) SEE NOTE: (calc) SODIUM (test code = 2951-2) 139 mmol/L POTASSIUM (test code = 2823-3) 4.0 mmol/L CHLORIDE (test code = 2075-0) 104 mmol/L CARBON DIOXIDE (test code = 8-9) 28 mmol/L CALCIUM (test code = 06305-8) 9.5 mg/dL Dwayne MyersCBC (INCLUDES DIFF/PLT)2025-01-22 00:00:00* Test Item Value Reference Range Interpretation Comme nts WHITE BLOOD CELL COUNT (test code = 6690-2) 5.5 Thousand/uL RED BLOOD CELL COUNT (test code = 789-8) 4.85 Million/uL HEMOGLOBIN (test code = 718-7) 13.3 g/dL HEMATOCRIT (test code = 4544-3) 41.6 % MCV (test code = 787-2) 85.8 fL MCH (test code = 785-6) 27.4 pg MCHC (test code = 786-4) 32.0 g/dL RDW (test code = 788-0) 16.0 % PLATELET COUNT (test code = 777-3) 315 Thousand/uL MPV (test code = 776-5) 12.0 fL ABSOLUTE NEUTROPHILS (test code = 751-8) 2580 cells/uL ABSOLUTE BAND NEUTROPHILS (test code = 34726-6) DNR cells/uL ABSOLUTE METAMYELOCYTES (ector t code = 71077-4) DNR cells/uL ABSOLUTE MYELOCYTES (test code = 23070-4) DNR cells/uL ABSOLUTE PROMYELOCYTES (test code = 96681-5) DNR cells/uL ABSOLUTE LYMPHOCYTES (test code = 731-0) 2206 cells/uL ABSOLUTE MONOCYTES (test cod e = 742-7) 446 cells/uL ABSOLUTE EOSINOPHILS (test code = 711-2) 171 cells/uL ABSOLUTE BASOPHILS (test cod e = 704-7) 99 cells/uL ABSOLUTE BLASTS (test code = 71894-3) DNR cells/uL ABSOLUTE NUCLEATED RBC (test code = 43411-2) DNR cells/uL NEUTROPHILS (test code = 770-8) 46.9 % BAND NEUTROPHILS (test code = 764-1) DNR % METAMYELOCYTES (test code = 740-1) DNR % MYELOCYTES (test code = 749-2) DNR % PROMYELOCYTES (test code = 783-1) DNR % LYMPHOCYTES (test code = 736-9) 40.1 % REACTIVE LYMPHOCYTES (test code = 73087-4) DNR % MONOCYTES (test code = 5905-5) 8.1 % EOSINOPHILS (test code = 713-8) 3.1 % BASOPHILS (test code = 706-2) 1.8 % BLASTS (test code = 709-6) DNR % NUCLEATED RBC (test code = 79448-4) DNR /100WBC COMMENT(S) (test code = 8251-1) DNR Dwayne Bah AustinHEMOGLOBIN [id number] 00:00:00* Test Item Value Reference Range Interpretation Comme nts HEMOGLOBIN A1c (test code = 4548-4) 6.4 % Dwayne Bah AustinURINALYSIS [id number] 00:00:00* Test Item Value Reference Range Interpretation Comme nts COLOR (test code = 5778-6) YELLOW APPEARANCE (test code = 5767-9) CLEAR SPECIFIC GRAVITY (test code = 5811-5) 1.016 PH (test code = 5803-2) 5.5 GLUCOSE (test code = 76440-3) NEGATIVE BILIRUBIN (test code = 5770-3) NEGATIVE KETONES (test code = 2514-8) NEGATIVE OCCULT BLOOD (test code = 5794-3) NEGATIVE PROTEIN (test code = 03801-5) NEGATIVE NITRITE (test code = 5802-4) NEGATIVE LEUKOCYTE ESTERASE (test cod e = 5799-2) TRACE WBC (test code = 5821-4) NONE SEEN /HPF RBC (test code = 84459-0) NONE SEEN /HPF SQUAMOUS EPITHELIAL CELLS (test code = 20823-6) 6-10 /HPF TRANSITIONAL EPITHELIAL CELL S (test code = 79983-0) DNR /HPF RENAL EPITHELIAL CELLS (test code = 34386-2) DNR /HPF BACTERIA (test code = 5769-5) NONE SEEN /HPF CALCIUM OXALATE CRYSTALS (te st code = 31335-1) DNR /HPF TRIPLE PHOSPHATE CRYSTALS (test code = 09411-8) DNR /HPF URIC ACID CRYSTALS (test cod e = 75101-2) DNR /HPF AMORPHOUS SEDIMENT (test cod e = 8246-1) DNR /HPF CRYSTALS (test code = 39515-9) DNR /HPF HYALINE CAST (test code = 5796-8) NONE SEEN /LPF GRANULAR CAST (test code = 5793-5) DNR /LPF CASTS (test code = 9842-6) DNR /LPF YEAST (test code = 5822-2) DNR /HPF COMMENTS (test code = 8251-1) DNR Dwayne Bah AustinPROTHROMBIN W/INR + PARTIAL THROMBOPLASTIN [id number] 00:00:00* Test Item Value Reference Range Interpretation Comme nts PARTIAL THROMBOPLASTIN TIME, ACTIVATED (test code = 38509-5) 28 sec INR (test code = 6301-6) 1.0 PT (test code = 5902-2) 11.0 sec Dwayne Bah AustinPROTHROMBIN W/INR + PARTIAL THROMBOPLASTIN [id number] 00:00:00* Test Item Value Reference Range Interpretation Comme nts PARTIAL THROMBOPLASTIN TIME, ACTIVATED (test code = 49723-4) 26 sec INR (test code = 6301-6) 1.0 PT (test code = 5902-2) 10.9 sec Dwayne Bah LouisCOMPREHENSIVE METABOLIC [id number] 00:00:00* Test Item Value Reference Range Interpretation Comme nts GLUCOSE (test code = 2345-7) 93 mg/dL UREA NITROGEN (BUN) (test code = 3094-0) 16 mg/dL CREATININE (test code = 2160-0) 1.18 mg/dL EGFR (test code = 65684-2) 55 mL/min/1.73m2 BUN/CREATININE RATIO (test code = 3097-3) 14 (calc) SODIUM (test code = 2951-2) 140 mmol/L POTASSIUM (test code = 2823-3) 4.5 mmol/L CHLORIDE (test code = 2075-0) 104 mmol/L CARBON DIOXIDE (test code = 2027-9) 25 mmol/L CALCIUM (test code = 56148-9) 9.5 mg/dL PROTEIN, TOTAL (test code = 2885-2) 7.4 g/dL ALBUMIN (test code = 1751-7) 4.6 g/dL GLOBULIN (test code = 26489-2) 2.8 g/dL(calc) ALBUMIN/GLOBULIN RATIO (test code = 1759-0) 1.6 (calc) BILIRUBIN, TOTAL (test code = 1975-2) 0.3 mg/dL ALKALINE PHOSPHATASE (test code = 6768-6) 102 U/L AST (test code = 1920-8) 15 U/L ALT (test code = 1742-6) 19 U/L Dwayne MyersHEMOGLOBIN [id number] 00:00:00* Test Item Value Reference Range Interpretation Comme [facility] HEMOGLOBIN A1c (test code = 4548-4) 6.4 % Dwayne MyersCBC (INCLUDES DIFF/PLT)2024-12-19 00:00:00* Test Item Value Reference Range Interpretation Comme nts WHITE BLOOD CELL COUNT (test code = 6690-2) 6.0 Thousand/uL RED BLOOD CELL COUNT (test code = 789-8) 5.16 Million/uL HEMOGLOBIN (test code = 718-7) 14.2 g/dL HEMATOCRIT (test code = 4544-3) 44.3 % MCV (test code = 787-2) 85.9 fL MCH (test code = 785-6) 27.5 pg MCHC (test code = 786-4) 32.1 g/dL RDW (test code = 788-0) 15.9 % PLATELET COUNT (test code = 777-3) 234 Thousand/uL MPV (test code = 776-5) 11.1 fL ABSOLUTE NEUTROPHILS (test code = 751-8) 3708 cells/uL ABSOLUTE BAND NEUTROPHILS (test code = 08571-1) DNR cells/uL ABSOLUTE METAMYELOCYTES (ector t code = 81958-6) DNR cells/uL ABSOLUTE MYELOCYTES (test code = 96362-5) DNR cells/uL ABSOLUTE PROMYELOCYTES (test code = 43194-1) DNR cells/uL ABSOLUTE LYMPHOCYTES (test code = 731-0) 1698 cells/uL ABSOLUTE MONOCYTES (test cod e = 742-7) 414 cells/uL ABSOLUTE EOSINOPHILS (test code = 711-2) 120 cells/uL ABSOLUTE BASOPHILS (test cod e = 704-7) 60 cells/uL ABSOLUTE BLASTS (test code = 85278-4) DNR cells/uL ABSOLUTE NUCLEATED RBC (test code = 04877-7) DNR cells/uL NEUTROPHILS (test code = 770-8) 61.8 % BAND NEUTROPHILS (test code = 764-1) DNR % METAMYELOCYTES (test code = 740-1) DNR % MYELOCYTES (test code = 749-2) DNR % PROMYELOCYTES (test code = 783-1) DNR % LYMPHOCYTES (test code = 736-9) 28.3 % REACTIVE LYMPHOCYTES (test code = 29750-5) DNR % MONOCYTES (test code = 5905-5) 6.9 % EOSINOPHILS (test code = 713-8) 2.0 % BASOPHILS (test code = 706-2) 1.0 % BLASTS (test code = 709-6) DNR % NUCLEATED RBC (test code = 97587-8) DNR /100WBC COMMENT(S) (test code = 8251-1) DNR Dwayne MyersPROTHROMBIN W/INR + PARTIAL THROMBOPLASTIN [id number] 00:00:00* Test Item Value Reference Range Interpretation Comme nts PARTIAL THROMBOPLASTIN TIME, ACTIVATED (test code = 63652-3) 26 sec INR (test code = 6301-6) 1.0 PT (test code = 5902-2) 10.9 sec Dwayne MyersCOMPREHENSIVE METABOLIC [id number] 00:00:00* Test Item Value Reference Range Interpretation Comme nts GLUCOSE (test code = 2345-7) 93 mg/dL UREA NITROGEN (BUN) (test code = 3094-0) 16 mg/dL CREATININE (test code = 2160-0) 1.18 mg/dL EGFR (test code = 92780-6) 55 mL/min/1.73m2 BUN/CREATININE RATIO (test code = 3097-3) 14 (calc) SODIUM (test code = 2951-2) 140 mmol/L POTASSIUM (test code = 2823-3) 4.5 mmol/L CHLORIDE (test code = 2075-0) 104 mmol/L CARBON DIOXIDE (test code = 2027-9) 25 mmol/L CALCIUM (test code = 14083-1) 9.5 mg/dL PROTEIN, TOTAL (test code = 2885-2) 7.4 g/dL ALBUMIN (test code = 1751-7) 4.6 g/dL GLOBULIN (test code = 74328-1) 2.8 g/dL(calc) ALBUMIN/GLOBULIN RATIO (test code = 1759-0) 1.6 (calc) BILIRUBIN, TOTAL (test code = 1975-2) 0.3 mg/dL ALKALINE PHOSPHATASE (test code = 6768-6) 102 U/L AST (test code = 1920-8) 15 U/L ALT (test code = 1742-6) 19 U/L Dwayne MyersHEMOGLOBIN [id number] 00:00:00* Test Item Value Reference Range Interpretation Comme nts HEMOGLOBIN A1c (test code = 4548-4) 6.4 % Dwayne MyersCBC (INCLUDES DIFF/PLT)2024-12-19 00:00:00* Test Item Value Reference Range Interpretation Comme nts WHITE BLOOD CELL COUNT (test code = 6690-2) 6.0 Thousand/uL RED BLOOD CELL COUNT (test code = 789-8) 5.16 Million/uL HEMOGLOBIN (test code = 718-7) 14.2 g/dL HEMATOCRIT (test code = 4544-3) 44.3 % MCV (test code = 787-2) 85.9 fL MCH (test code = 785-6) 27.5 pg MCHC (test code = 786-4) 32.1 g/dL RDW (test code = 788-0) 15.9 % PLATELET COUNT (test code = 777-3) 234 Thousand/uL MPV (test code = 776-5) 11.1 fL ABSOLUTE NEUTROPHILS (test code = 751-8) 3708 cells/uL ABSOLUTE BAND NEUTROPHILS (test code = 03440-3) DNR cells/uL ABSOLUTE METAMYELOCYTES (ector t code = 66840-9) DNR cells/uL ABSOLUTE MYELOCYTES (test code = 14801-3) DNR cells/uL ABSOLUTE PROMYELOCYTES (test code = 22263-0) DNR cells/uL ABSOLUTE LYMPHOCYTES (test code = 731-0) 1698 cells/uL ABSOLUTE MONOCYTES (test cod e = 742-7) 414 cells/uL ABSOLUTE EOSINOPHILS (test code = 711-2) 120 cells/uL ABSOLUTE BASOPHILS (test cod e = 704-7) 60 cells/uL ABSOLUTE BLASTS (test code = 46395-2) DNR cells/uL ABSOLUTE NUCLEATED RBC (test code = 70723-7) DNR cells/uL NEUTROPHILS (test code = 770-8) 61.8 % BAND NEUTROPHILS (test code = 764-1) DNR % METAMYELOCYTES (test code = 740-1) DNR % MYELOCYTES (test code = 749-2) DNR % PROMYELOCYTES (test code = 783-1) DNR % LYMPHOCYTES (test code = 736-9) 28.3 % REACTIVE LYMPHOCYTES (test code = 90397-3) DNR % MONOCYTES (test code = 5905-5) 6.9 % EOSINOPHILS (test code = 713-8) 2.0 % BASOPHILS (test code = 706-2) 1.0 % BLASTS (test code = 709-6) DNR % NUCLEATED RBC (test code = 71438-8) DNR /100WBC COMMENT(S) (test code = 8251-1) DNR Dwayne MyersPROTHROMBIN W/INR + PARTIAL THROMBOPLASTIN [id number] 00:00:00* Test Item Value Reference Range Interpretation Comme nts PARTIAL THROMBOPLASTIN TIME, ACTIVATED (test code = 37245-7) 26 sec INR (test code = 6301-6) 1.0 PT (test code = 5902-2) 10.9 sec Dwayne MyersCOMPREHENSIVE METABOLIC [id number] 00:00:00* Test Item Value Reference Range Interpretation Comme nts GLUCOSE (test code = 2345-7) 93 mg/dL UREA NITROGEN (BUN) (test code = 3094-0) 16 mg/dL CREATININE (test code = 2160-0) 1.18 mg/dL EGFR (test code = 25332-4) 55 mL/min/1.73m2 BUN/CREATININE RATIO (test code = 3097-3) 14 (calc) SODIUM (test code = 2951-2) 140 mmol/L POTASSIUM (test code = 2823-3) 4.5 mmol/L CHLORIDE (test code = 2075-0) 104 mmol/L CARBON DIOXIDE (test code = 2027-9) 25 mmol/L CALCIUM (test code = 66774-2) 9.5 mg/dL PROTEIN, TOTAL (test code = 2885-2) 7.4 g/dL ALBUMIN (test code = 1751-7) 4.6 g/dL GLOBULIN (test code = 21534-7) 2.8 g/dL(calc) ALBUMIN/GLOBULIN RATIO (test code = 1759-0) 1.6 (calc) BILIRUBIN, TOTAL (test code = 1974-2) 0.3 mg/dL ALKALINE PHOSPHATASE (test code = 6768-6) 102 U/L AST (test code = 1920-8) 15 U/L ALT (test code = 1742-6) 19 U/L Dwayne MyersHEMOGLOBIN [id number] 00:00:00* Test Item Value Reference Range Interpretation Comme [facility] HEMOGLOBIN A1c (test code = 4548-4) 6.4 % Dwayne MyersCBC (INCLUDES DIFF/PLT)2024-12-19 00:00:00* Test Item Value Reference Range Interpretation Comme nts WHITE BLOOD CELL COUNT (test code = 6690-2) 6.0 Thousand/uL RED BLOOD CELL COUNT (test code = 789-8) 5.16 Million/uL HEMOGLOBIN (test code = 718-7) 14.2 g/dL HEMATOCRIT (test code = 4544-3) 44.3 % MCV (test code = 787-2) 85.9 fL MCH (test code = 785-6) 27.5 pg MCHC (test code = 786-4) 32.1 g/dL RDW (test code = 788-0) 15.9 % PLATELET COUNT (test code = 777-3) 234 Thousand/uL MPV (test code = 776-5) 11.1 fL ABSOLUTE NEUTROPHILS (test code = 751-8) 3708 cells/uL ABSOLUTE BAND NEUTROPHILS (test code = 33934-8) DNR cells/uL ABSOLUTE METAMYELOCYTES (ector t code = 62518-4) DNR cells/uL ABSOLUTE MYELOCYTES (test code = 39407-6) DNR cells/uL ABSOLUTE PROMYELOCYTES (test code = 77279-7) DNR cells/uL ABSOLUTE LYMPHOCYTES (test code = 731-0) 1698 cells/uL ABSOLUTE MONOCYTES (test cod e = 742-7) 414 cells/uL ABSOLUTE EOSINOPHILS (test code = 711-2) 120 cells/uL ABSOLUTE BASOPHILS (test cod e = 704-7) 60 cells/uL ABSOLUTE BLASTS (test code = 16209-4) DNR cells/uL ABSOLUTE NUCLEATED RBC (test code = 43905-2) DNR cells/uL NEUTROPHILS (test code = 770-8) 61.8 % BAND NEUTROPHILS (test code = 764-1) DNR % METAMYELOCYTES (test code = 740-1) DNR % MYELOCYTES (test code = 749-2) DNR % PROMYELOCYTES (test code = 783-1) DNR % LYMPHOCYTES (test code = 736-9) 28.3 % REACTIVE LYMPHOCYTES (test code = 51209-8) DNR % MONOCYTES (test code = 5905-5) 6.9 % EOSINOPHILS (test code = 713-8) 2.0 % BASOPHILS (test code = 706-2) 1.0 % BLASTS (test code = 709-6) DNR % NUCLEATED RBC (test code = 24154-7) DNR /100WBC COMMENT(S) (test code = 8251-1) DNR Dwayne MyersPROTHROMBIN W/INR + PARTIAL THROMBOPLASTIN [id number] 00:00:00* Test Item Value Reference Range Interpretation Comme nts PARTIAL THROMBOPLASTIN TIME, ACTIVATED (test code = 12743-9) 26 sec INR (test code = 6301-6) 1.0 PT (test code = 5902-2) 10.9 sec Dwayne MyersCOMPREHENSIVE METABOLIC [id number] 00:00:00* Test Item Value Reference Range Interpretation Comme nts GLUCOSE (test code = 2345-7) 93 mg/dL UREA NITROGEN (BUN) (test code = 3094-0) 16 mg/dL CREATININE (test code = 2160-0) 1.18 mg/dL EGFR (test code = 07755-7) 55 mL/min/1.73m2 BUN/CREATININE RATIO (test code = 3097-3) 14 (calc) SODIUM (test code = 2951-2) 140 mmol/L POTASSIUM (test code = 2823-3) 4.5 mmol/L CHLORIDE (test code = 2075-0) 104 mmol/L CARBON DIOXIDE (test code = 2027-9) 25 mmol/L CALCIUM (test code = 46813-8) 9.5 mg/dL PROTEIN, TOTAL (test code = 2885-2) 7.4 g/dL ALBUMIN (test code = 1751-7) 4.6 g/dL GLOBULIN (test code = 18554-2) 2.8 g/dL(calc) ALBUMIN/GLOBULIN RATIO (test code = 1759-0) 1.6 (calc) BILIRUBIN, TOTAL (test code = 1975-2) 0.3 mg/dL ALKALINE PHOSPHATASE (test code = 6768-6) 102 U/L AST (test code = 1920-8) 15 U/L ALT (test code = 1742-6) 19 U/L Dwayne MyersHEMOGLOBIN [id number] 00:00:00* Test Item Value Reference Range Interpretation Comme nts HEMOGLOBIN A1c (test code = 4548-4) 6.4 % Dwayne MyersCBC (INCLUDES DIFF/PLT)2024-12-19 00:00:00* Test Item Value Reference Range Interpretation Comme nts WHITE BLOOD CELL COUNT (test code = 6690-2) 6.0 Thousand/uL RED BLOOD CELL COUNT (test code = 789-8) 5.16 Million/uL HEMOGLOBIN (test code = 718-7) 14.2 g/dL HEMATOCRIT (test code = 4544-3) 44.3 % MCV (test code = 787-2) 85.9 fL MCH (test code = 785-6) 27.5 pg MCHC (test code = 786-4) 32.1 g/dL RDW (test code = 788-0) 15.9 % PLATELET COUNT (test code = 777-3) 234 Thousand/uL MPV (test code = 776-5) 11.1 fL ABSOLUTE NEUTROPHILS (test code = 751-8) 3708 cells/uL ABSOLUTE BAND NEUTROPHILS (test code = 91250-7) DNR cells/uL ABSOLUTE METAMYELOCYTES (ector t code = 61580-1) DNR cells/uL ABSOLUTE MYELOCYTES (test code = 63841-6) DNR cells/uL ABSOLUTE PROMYELOCYTES (test code = 14127-4) DNR cells/uL ABSOLUTE LYMPHOCYTES (test code = 731-0) 1698 cells/uL ABSOLUTE MONOCYTES (test cod e = 742-7) 414 cells/uL ABSOLUTE EOSINOPHILS (test code = 711-2) 120 cells/uL ABSOLUTE BASOPHILS (test cod e = 704-7) 60 cells/uL ABSOLUTE BLASTS (test code = 49740-9) DNR cells/uL ABSOLUTE NUCLEATED RBC (test code = 28291-0) DNR cells/uL NEUTROPHILS (test code = 770-8) 61.8 % BAND NEUTROPHILS (test code = 764-1) DNR % METAMYELOCYTES (test code = 740-1) DNR % MYELOCYTES (test code = 749-2) DNR % PROMYELOCYTES (test code = 783-1) DNR % LYMPHOCYTES (test code = 736-9) 28.3 % REACTIVE LYMPHOCYTES (test code = 44097-9) DNR % MONOCYTES (test code = 5905-5) 6.9 % EOSINOPHILS (test code = 713-8) 2.0 % BASOPHILS (test code = 706-2) 1.0 % BLASTS (test code = 709-6) DNR % NUCLEATED RBC (test code = 75684-4) DNR /100WBC COMMENT(S) (test code = 8251-1) DNR Dwayne MyersPROTHROMBIN W/INR + PARTIAL THROMBOPLASTIN [id number] 00:00:00* Test Item Value Reference Range Interpretation Comme nts PARTIAL THROMBOPLASTIN TIME, ACTIVATED (test code = 38842-0) 26 sec INR (test code = 6301-6) 1.0 PT (test code = 5902-2) 10.9 sec Dwayne MyersCOMPREHENSIVE METABOLIC [id number] 00:00:00* Test Item Value Reference Range Interpretation Comme nts GLUCOSE (test code = 2345-7) 93 mg/dL UREA NITROGEN (BUN) (test code = 3094-0) 16 mg/dL CREATININE (test code = 2160-0) 1.18 mg/dL EGFR (test code = 67064-6) 55 mL/min/1.73m2 BUN/CREATININE RATIO (test code = 3097-3) 14 (calc) SODIUM (test code = 2951-2) 140 mmol/L POTASSIUM (test code = 2823-3) 4.5 mmol/L CHLORIDE (test code = 2075-0) 104 mmol/L CARBON DIOXIDE (test code = 2027-) 25 mmol/L CALCIUM (test code = 55478-4) 9.5 mg/dL PROTEIN, TOTAL (test code = 2885-2) 7.4 g/dL ALBUMIN (test code = 1751-7) 4.6 g/dL GLOBULIN (test code = 49288-3) 2.8 g/dL(calc) ALBUMIN/GLOBULIN RATIO (test code = 1759-0) 1.6 (calc) BILIRUBIN, TOTAL (test code = 1974-2) 0.3 mg/dL ALKALINE PHOSPHATASE (test code = 6768-6) 102 U/L AST (test code = 1920-8) 15 U/L ALT (test code = 1742-6) 19 U/L Dwayne MyersHEMOGLOBIN [id number] 00:00:00* Test Item Value Reference Range Interpretation Comme [facility] HEMOGLOBIN A1c (test code = 4548-4) 6.4 % Dwayne MyersCBC (INCLUDES DIFF/PLT)2024-12-19 00:00:00* Test Item Value Reference Range Interpretation Comme nts WHITE BLOOD CELL COUNT (test code = 6690-2) 6.0 Thousand/uL RED BLOOD CELL COUNT (test code = 789-8) 5.16 Million/uL HEMOGLOBIN (test code = 718-7) 14.2 g/dL HEMATOCRIT (test code = 4544-3) 44.3 % MCV (test code = 787-2) 85.9 fL MCH (test code = 785-6) 27.5 pg MCHC (test code = 786-4) 32.1 g/dL RDW (test code = 788-0) 15.9 % PLATELET COUNT (test code = 777-3) 234 Thousand/uL MPV (test code = 776-5) 11.1 fL ABSOLUTE NEUTROPHILS (test code = 751-8) 3708 cells/uL ABSOLUTE BAND NEUTROPHILS (test code = 48111-7) DNR cells/uL ABSOLUTE METAMYELOCYTES (ector t code = 38263-1) DNR cells/uL ABSOLUTE MYELOCYTES (test code = 48442-3) DNR cells/uL ABSOLUTE PROMYELOCYTES (test code = 03928-0) DNR cells/uL ABSOLUTE LYMPHOCYTES (test code = 731-0) 1698 cells/uL ABSOLUTE MONOCYTES (test cod e = 742-7) 414 cells/uL ABSOLUTE EOSINOPHILS (test code = 711-2) 120 cells/uL ABSOLUTE BASOPHILS (test cod e = 704-7) 60 cells/uL ABSOLUTE BLASTS (test code = 24463-9) DNR cells/uL ABSOLUTE NUCLEATED RBC (test code = 04350-9) DNR cells/uL NEUTROPHILS (test code = 770-8) 61.8 % BAND NEUTROPHILS (test code = 764-1) DNR % METAMYELOCYTES (test code = 740-1) DNR % MYELOCYTES (test code = 749-2) DNR % PROMYELOCYTES (test code = 783-1) DNR % LYMPHOCYTES (test code = 736-9) 28.3 % REACTIVE LYMPHOCYTES (test code = 99351-3) DNR % MONOCYTES (test code = 5905-5) 6.9 % EOSINOPHILS (test code = 713-8) 2.0 % BASOPHILS (test code = 706-2) 1.0 % BLASTS (test code = 709-6) DNR % NUCLEATED RBC (test code = 35433-3) DNR /100WBC COMMENT(S) (test code = 8251-1) DNR Dwayne MyersPROTHROMBIN W/INR + PARTIAL THROMBOPLASTIN [id number] 00:00:00* Test Item Value Reference Range Interpretation Comme nts PARTIAL THROMBOPLASTIN TIME, ACTIVATED (test code = 63350-9) 26 sec INR (test code = 6301-6) 1.0 PT (test code = 5902-2) 10.9 sec Dwayne MyersCOMPREHENSIVE METABOLIC [id number] 00:00:00* Test Item Value Reference Range Interpretation Comme nts GLUCOSE (test code = 2345-7) 93 mg/dL UREA NITROGEN (BUN) (test code = 3094-0) 16 mg/dL CREATININE (test code = 2160-0) 1.18 mg/dL EGFR (test code = 25282-2) 55 mL/min/1.73m2 BUN/CREATININE RATIO (test code = 3097-3) 14 (calc) SODIUM (test code = 2951-2) 140 mmol/L POTASSIUM (test code = 2823-3) 4.5 mmol/L CHLORIDE (test code = 2075-0) 104 mmol/L CARBON DIOXIDE (test code = 2027-) 25 mmol/L CALCIUM (test code = 39824-7) 9.5 mg/dL PROTEIN, TOTAL (test code = 2885-2) 7.4 g/dL ALBUMIN (test code = 1751-7) 4.6 g/dL GLOBULIN (test code = 37901-4) 2.8 g/dL(calc) ALBUMIN/GLOBULIN RATIO (test code = 1759-0) 1.6 (calc) BILIRUBIN, TOTAL (test code = 1974-2) 0.3 mg/dL ALKALINE PHOSPHATASE (test code = 6768-6) 102 U/L AST (test code = 1920-8) 15 U/L ALT (test code = 1742-6) 19 U/L Dwayne MyersHEMOGLOBIN [id number] 00:00:00* Test Item Value Reference Range Interpretation Comme [facility] HEMOGLOBIN A1c (test code = 4548-4) 6.4 % Dwayne MyersCBC (INCLUDES DIFF/PLT)2024-12-19 00:00:00* Test Item Value Reference Range Interpretation Comme nts WHITE BLOOD CELL COUNT (test code = 6690-2) 6.0 Thousand/uL RED BLOOD CELL COUNT (test code = 789-8) 5.16 Million/uL HEMOGLOBIN (test code = 718-7) 14.2 g/dL HEMATOCRIT (test code = 4544-3) 44.3 % MCV (test code = 787-2) 85.9 fL MCH (test code = 785-6) 27.5 pg MCHC (test code = 786-4) 32.1 g/dL RDW (test code = 788-0) 15.9 % PLATELET COUNT (test code = 777-3) 234 Thousand/uL MPV (test code = 776-5) 11.1 fL ABSOLUTE NEUTROPHILS (test code = 751-8) 3708 cells/uL ABSOLUTE BAND NEUTROPHILS (test code = 77162-5) DNR cells/uL ABSOLUTE METAMYELOCYTES (ector t code = 24025-2) DNR cells/uL ABSOLUTE MYELOCYTES (test code = 36652-2) DNR cells/uL ABSOLUTE PROMYELOCYTES (test code = 64311-7) DNR cells/uL ABSOLUTE LYMPHOCYTES (test code = 731-0) 1698 cells/uL ABSOLUTE MONOCYTES (test cod e = 742-7) 414 cells/uL ABSOLUTE EOSINOPHILS (test code = 711-2) 120 cells/uL ABSOLUTE BASOPHILS (test cod e = 704-7) 60 cells/uL ABSOLUTE BLASTS (test code = 08655-5) DNR cells/uL ABSOLUTE NUCLEATED RBC (test code = 35126-7) DNR cells/uL NEUTROPHILS (test code = 770-8) 61.8 % BAND NEUTROPHILS (test code = 764-1) DNR % METAMYELOCYTES (test code = 740-1) DNR % MYELOCYTES (test code = 749-2) DNR % PROMYELOCYTES (test code = 783-1) DNR % LYMPHOCYTES (test code = 736-9) 28.3 % REACTIVE LYMPHOCYTES (test code = 39872-5) DNR % MONOCYTES (test code = 5905-5) 6.9 % EOSINOPHILS (test code = 713-8) 2.0 % BASOPHILS (test code = 706-2) 1.0 % BLASTS (test code = 709-6) DNR % NUCLEATED RBC (test code = 47054-6) DNR /100WBC COMMENT(S) (test code = 8251-1) DNR Dwayne MyersPROTHROMBIN W/INR + PARTIAL THROMBOPLASTIN [id number] 00:00:00* Test Item Value Reference Range Interpretation Comme nts PARTIAL THROMBOPLASTIN TIME, ACTIVATED (test code = 70296-9) 26 sec INR (test code = 6301-6) 1.0 PT (test code = 5902-2) 10.9 sec Dwayne MyersCOMPREHENSIVE METABOLIC [id number] 00:00:00* Test Item Value Reference Range Interpretation Comme nts GLUCOSE (test code = 2345-7) 93 mg/dL UREA NITROGEN (BUN) (test code = 3094-0) 16 mg/dL CREATININE (test code = 2160-0) 1.18 mg/dL EGFR (test code = 10640-8) 55 mL/min/1.73m2 BUN/CREATININE RATIO (test code = 3097-3) 14 (calc) SODIUM (test code = 2951-2) 140 mmol/L POTASSIUM (test code = 2823-3) 4.5 mmol/L CHLORIDE (test code = 2075-0) 104 mmol/L CARBON DIOXIDE (test code = 2027-9) 25 mmol/L CALCIUM (test code = 86141-9) 9.5 mg/dL PROTEIN, TOTAL (test code = 2885-2) 7.4 g/dL ALBUMIN (test code = 1751-7) 4.6 g/dL GLOBULIN (test code = 16950-4) 2.8 g/dL(calc) ALBUMIN/GLOBULIN RATIO (test code = 1759-0) 1.6 (calc) BILIRUBIN, TOTAL (test code = 1974-2) 0.3 mg/dL ALKALINE PHOSPHATASE (test code = 6768-6) 102 U/L AST (test code = 1920-8) 15 U/L ALT (test code = 1742-6) 19 U/L Dwayne MyersHEMOGLOBIN [id number] 00:00:00* Test Item Value Reference Range Interpretation Comme nts HEMOGLOBIN A1c (test code = 4548-4) 6.4 % Dwayne MyersCBC (INCLUDES DIFF/PLT)2024-12-19 00:00:00* Test Item Value Reference Range Interpretation Comme nts WHITE BLOOD CELL COUNT (test code = 6690-2) 6.0 Thousand/uL RED BLOOD CELL COUNT (test code = 789-8) 5.16 Million/uL HEMOGLOBIN (test code = 718-7) 14.2 g/dL HEMATOCRIT (test code = 4544-3) 44.3 % MCV (test code = 787-2) 85.9 fL MCH (test code = 785-6) 27.5 pg MCHC (test code = 786-4) 32.1 g/dL RDW (test code = 788-0) 15.9 % PLATELET COUNT (test code = 777-3) 234 Thousand/uL MPV (test code = 776-5) 11.1 fL ABSOLUTE NEUTROPHILS (test code = 751-8) 3708 cells/uL ABSOLUTE BAND NEUTROPHILS (test code = 43175-3) DNR cells/uL ABSOLUTE METAMYELOCYTES (ector t code = 20524-5) DNR cells/uL ABSOLUTE MYELOCYTES (test code = 00110-7) DNR cells/uL ABSOLUTE PROMYELOCYTES (test code = 53630-6) DNR cells/uL ABSOLUTE LYMPHOCYTES (test code = 731-0) 1698 cells/uL ABSOLUTE MONOCYTES (test cod e = 742-7) 414 cells/uL ABSOLUTE EOSINOPHILS (test code = 711-2) 120 cells/uL ABSOLUTE BASOPHILS (test cod e = 704-7) 60 cells/uL ABSOLUTE BLASTS (test code = 39661-5) DNR cells/uL ABSOLUTE NUCLEATED RBC (test code = 22234-4) DNR cells/uL NEUTROPHILS (test code = 770-8) 61.8 % BAND NEUTROPHILS (test code = 764-1) DNR % METAMYELOCYTES (test code = 740-1) DNR % MYELOCYTES (test code = 749-2) DNR % PROMYELOCYTES (test code = 783-1) DNR % LYMPHOCYTES (test code = 736-9) 28.3 % REACTIVE LYMPHOCYTES (test code = 49848-9) DNR % MONOCYTES (test code = 5905-5) 6.9 % EOSINOPHILS (test code = 713-8) 2.0 % BASOPHILS (test code = 706-2) 1.0 % BLASTS (test code = 709-6) DNR % NUCLEATED RBC (test code = 39690-7) DNR /100WBC COMMENT(S) (test code = 8251-1) DNR Dwayne F AustinPROTHROMBIN W/INR + PARTIAL THROMBOPLASTIN [id number] 00:00:00* Test Item Value Reference Range Interpretation Comme nts PARTIAL THROMBOPLASTIN TIME, ACTIVATED (test code = 06315-5) 26 sec INR (test code = 6301-6) 1.0 PT (test code = 5902-2) 10.9 sec Dwayne F AustinCOMPREHENSIVE METABOLIC [id number] 00:00:00* Test Item Value Reference Range Interpretation Comme nts GLUCOSE (test code = 2345-7) 93 mg/dL UREA NITROGEN (BUN) (test code = 3094-0) 16 mg/dL CREATININE (test code = 2160-0) 1.18 mg/dL EGFR (test code = 51164-1) 55 mL/min/1.73m2 BUN/CREATININE RATIO (test code = 3097-3) 14 (calc) SODIUM (test code = 2951-2) 140 mmol/L POTASSIUM (test code = 2823-3) 4.5 mmol/L CHLORIDE (test code = 2075-0) 104 mmol/L CARBON DIOXIDE (test code = 2027-9) 25 mmol/L CALCIUM (test code = 02992-6) 9.5 mg/dL PROTEIN, TOTAL (test code = 2885-2) 7.4 g/dL ALBUMIN (test code = 1751-7) 4.6 g/dL GLOBULIN (test code = 87901-6) 2.8 g/dL(calc) ALBUMIN/GLOBULIN RATIO (test code = 1759-0) 1.6 (calc) BILIRUBIN, TOTAL (test code = 1975-2) 0.3 mg/dL ALKALINE PHOSPHATASE (test code = 6768-6) 102 U/L AST (test code = 1920-8) 15 U/L ALT (test code = 1742-6) 19 U/L Dwayne MyersHEMOGLOBIN [id number] 00:00:00* Test Item Value Reference Range Interpretation Comme [facility] HEMOGLOBIN A1c (test code = 4548-4) 6.4 % Dwayne MyersCBC (INCLUDES DIFF/PLT)2024-12-19 00:00:00* Test Item Value Reference Range Interpretation Comme [facility] WHITE BLOOD CELL COUNT (test code = 6690-2) 6.0 Thousand/uL RED BLOOD CELL COUNT (test code = 789-8) 5.16 Million/uL HEMOGLOBIN (test code = 718-7) 14.2 g/dL HEMATOCRIT (test code = 4544-3) 44.3 % MCV (test code = 787-2) 85.9 fL MCH (test code = 785-6) 27.5 pg MCHC (test code = 786-4) 32.1 g/dL RDW (test code = 788-0) 15.9 % PLATELET COUNT (test code = 777-3) 234 Thousand/uL MPV (test code = 776-5) 11.1 fL ABSOLUTE NEUTROPHILS (test code = 751-8) 3708 cells/uL ABSOLUTE BAND NEUTROPHILS (test code = 26533-7) DNR cells/uL ABSOLUTE METAMYELOCYTES (ector t code = 21380-9) DNR cells/uL ABSOLUTE MYELOCYTES (test code = 15880-0) DNR cells/uL ABSOLUTE PROMYELOCYTES (test code = 51007-8) DNR cells/uL ABSOLUTE LYMPHOCYTES (test code = 731-0) 1698 cells/uL ABSOLUTE MONOCYTES (test cod e = 742-7) 414 cells/uL ABSOLUTE EOSINOPHILS (test code = 711-2) 120 cells/uL ABSOLUTE BASOPHILS (test cod e = 704-7) 60 cells/uL ABSOLUTE BLASTS (test code = 50245-6) DNR cells/uL ABSOLUTE NUCLEATED RBC (test code = 25008-3) DNR cells/uL NEUTROPHILS (test code = 770-8) 61.8 % BAND NEUTROPHILS (test code = 764-1) DNR % METAMYELOCYTES (test code = 740-1) DNR % MYELOCYTES (test code = 749-2) DNR % PROMYELOCYTES (test code = 783-1) DNR % LYMPHOCYTES (test code = 736-9) 28.3 % REACTIVE LYMPHOCYTES (test code = 86121-1) DNR % MONOCYTES (test code = 5905-5) 6.9 % EOSINOPHILS (test code = 713-8) 2.0 % BASOPHILS (test code = 706-2) 1.0 % BLASTS (test code = 709-6) DNR % NUCLEATED RBC (test code = 58256-7) DNR /100WBC COMMENT(S) (test code = 8251-1) DNR Dwayne F AustinPROTHROMBIN W/INR + PARTIAL THROMBOPLASTIN [id number] 00:00:00* Test Item Value Reference Range Interpretation Comme nts PARTIAL THROMBOPLASTIN TIME, ACTIVATED (test code = 05976-7) 26 sec INR (test code = 6301-6) 1.0 PT (test code = 5902-2) 10.9 sec Dwayne MyersCOMPREHENSIVE METABOLIC [id number] 00:00:00* Test Item Value Reference Range Interpretation Comme nts GLUCOSE (test code = 2345-7) 93 mg/dL UREA NITROGEN (BUN) (test code = 3094-0) 16 mg/dL CREATININE (test code = 2160-0) 1.18 mg/dL EGFR (test code = 05177-9) 55 mL/min/1.73m2 BUN/CREATININE RATIO (test code = 3097-3) 14 (calc) SODIUM (test code = 2951-2) 140 mmol/L POTASSIUM (test code = 2823-3) 4.5 mmol/L CHLORIDE (test code = 2075-0) 104 mmol/L CARBON DIOXIDE (test code = 2027-9) 25 mmol/L CALCIUM (test code = 89658-6) 9.5 mg/dL PROTEIN, TOTAL (test code = 2885-2) 7.4 g/dL ALBUMIN (test code = 1751-7) 4.6 g/dL GLOBULIN (test code = 75979-0) 2.8 g/dL(calc) ALBUMIN/GLOBULIN RATIO (test code = 1759-0) 1.6 (calc) BILIRUBIN, TOTAL (test code = 1975-2) 0.3 mg/dL ALKALINE PHOSPHATASE (test code = 6768-6) 102 U/L AST (test code = 1920-8) 15 U/L ALT (test code = 1742-6) 19 U/L Dwayne MyersHEMOGLOBIN [id number] 00:00:00* Test Item Value Reference Range Interpretation Comme [facility] HEMOGLOBIN A1c (test code = 4548-4) 6.4 % Dwayne MyersCBC (INCLUDES DIFF/PLT)2024-12-19 00:00:00* Test Item Value Reference Range Interpretation Comme [facility] WHITE BLOOD CELL COUNT (test code = 6690-2) 6.0 Thousand/uL RED BLOOD CELL COUNT (test code = 789-8) 5.16 Million/uL HEMOGLOBIN (test code = 718-7) 14.2 g/dL HEMATOCRIT (test code = 4544-3) 44.3 % MCV (test code = 787-2) 85.9 fL MCH (test code = 785-6) 27.5 pg MCHC (test code = 786-4) 32.1 g/dL RDW (test code = 788-0) 15.9 % PLATELET COUNT (test code = 777-3) 234 Thousand/uL MPV (test code = 776-5) 11.1 fL ABSOLUTE NEUTROPHILS (test code = 751-8) 3708 cells/uL ABSOLUTE BAND NEUTROPHILS (test code = 83180-2) DNR cells/uL ABSOLUTE METAMYELOCYTES (ector t code = 61909-4) DNR cells/uL ABSOLUTE MYELOCYTES (test code = 78779-8) DNR cells/uL ABSOLUTE PROMYELOCYTES (test code = 35973-0) DNR cells/uL ABSOLUTE LYMPHOCYTES (test code = 731-0) 1698 cells/uL ABSOLUTE MONOCYTES (test cod e = 742-7) 414 cells/uL ABSOLUTE EOSINOPHILS (test code = 711-2) 120 cells/uL ABSOLUTE BASOPHILS (test cod e = 704-7) 60 cells/uL ABSOLUTE BLASTS (test code = 19499-1) DNR cells/uL ABSOLUTE NUCLEATED RBC (test code = 76016-6) DNR cells/uL NEUTROPHILS (test code = 770-8) 61.8 % BAND NEUTROPHILS (test code = 764-1) DNR % METAMYELOCYTES (test code = 740-1) DNR % MYELOCYTES (test code = 749-2) DNR % PROMYELOCYTES (test code = 783-1) DNR % LYMPHOCYTES (test code = 736-9) 28.3 % REACTIVE LYMPHOCYTES (test code = 13119-6) DNR % MONOCYTES (test code = 5905-5) 6.9 % EOSINOPHILS (test code = 713-8) 2.0 % BASOPHILS (test code = 706-2) 1.0 % BLASTS (test code = 709-6) DNR % NUCLEATED RBC (test code = 09793-8) DNR /100WBC COMMENT(S) (test code = 8251-1) DNR Dwayne Bah Dora, [id number] 08:34:27SPECIMEN NUMBER: [id number] CULTURE, URINE SPECIMEN NUMBER: [id number] SOURCE: URINE REPORT STATUS: FINAL FINAL REPORT: 09/19/2024 <10,000 CFU/ML UROGENITAL GEMA PRESENT NO COMMON PATHOGENS UNLESS OTHERWISE INDICATED, ALL TESTING PERFORMED AT [facility] [address] [place] [address] HUMAN PERFORMANCE TECHNOLOGIST: BO MILLER M.D. CLIA NUMBER [id number] [place]. [id number] CULTURE, [id number] 00:00:00* Test Item Value Reference Range Interpretation Comme nts CULTURE, URINE (test code = 79400) SPECIMEN NUMBER: [id number] Dwayne HobsonLTMAL, [id number] 00:00:00* Test Item Value Reference Range Interpretation Comme nts CULTURE, URINE (test code = 14480) SPECIMEN NUMBER: [id number] Dwayne John [id number] 00:00:00* Test Item Value Reference Range Interpretation Comme nts CULTURE, URINE (test code = 02998) SPECIMEN NUMBER: [id number] Dwayne John [id number] 00:00:00* Test Item Value Reference Range Interpretation Comme nts CULTURE, URINE (test code = 02583) SPECIMEN NUMBER: [id number] Dwayne John [id number] 00:00:00* Test Item Value Reference Range Interpretation Comme nts CULTURE, URINE (test code = 64031) SPECIMEN NUMBER: [id number] Dwayne John [id number] 00:00:00* Test Item Value Reference Range Interpretation Comme nts CULTURE, URINE (test code = 04244) SPECIMEN NUMBER: [id number] Dwayne HobsonLTMAL [id number] 00:00:00* Test Item Value Reference Range Interpretation Comme nts CULTURE, URINE (test code = 64483) SPECIMEN NUMBER: [id number] Dwayne HobsonLTMAL, [id number] 00:00:00* Test Item Value Reference Range Interpretation Comme nts CULTURE, URINE (test code = 48338) SPECIMEN NUMBER: [id number] Dwayne John [id number] 00:00:00* Test Item Value Reference Range Interpretation Comme nts CULTURE, URINE (test code = 24641) SPECIMEN NUMBER: [id number] Dwayne HobsonLTMAL, [id number] 00:00:00* Test Item Value Reference Range Interpretation Comme nts CULTURE, URINE (test code = 22687) SPECIMEN NUMBER: [id number] Dwayne HobsonLTMAL, [id number] 00:00:00* Test Item Value Reference Range Interpretation Comme nts CULTURE, URINE (test code = 88306) SPECIMEN NUMBER: [id number] Dwayne Bah AustinCT Angiogram [id number] 16:02:10IMAGES REVIEWED: ?CT ANGIOGRAM CHEST CLINICAL INDICATION: ?Chest pain COMPARISON: TECHNIQUE: Multid etector CT angiogram cardiac gated examination of thechest and upper abdomen was acquired prior andafter the intravenousinjection of iodine contrast. Multiplanar reformations in the sagittal andcoronal plane and 3D volume rendered images were provided, performed at [employer] ([place]) workstation. Findings:AORTA AND CARDIOVASCULAR FINDINGS: The aortic valve is three leaflet without thickening. Bovine aortic arch. The thoracic aorta normal in caliber and course. No intimal flap,intramural hematoma, wallirregularity or extravasation. The pulmonary arteries normal in caliber. No filling defects. The cardiacchambers are normal in size. ?No pericardial abnormality is detected. CHEST: The thyroid and central airways and esophagus are normal in appearance. No evidence of adenopathy within the chest. Bandlike opacity in the right basilar lower lobe with surroundinggroundglass is likely atelectasis. ABDOMEN: Images of the upper abdomen are unremarkable. BONES AND SOFT TISSUES: Within normal limits. [facility]20[facility] 16:26:58* Test Item Value Reference Range Interpretation Comme nts Height (test code = 8984372050) 63 in Weight (test code = 0346846341) 200 lbs Systolic BP (test code = 0247081460) 150 mmHg Diastolic BP (test code = 6858621230) 93 mmHg Heart Rate (test code = 7593538224) 72 bpm BSA (test code = 3706199465) 1.93 m2 Ao root diam (test code = 1605089414) 3.00 cm Aortic root (test code = 6557288324) 3.0 cm Ao root annulus (test code = 2189417659) 3.0 cm LA size (test code = 0872400247) 3.1 cm LVOT diameter (test code = 5981115675) 1.89 cm LVOT area (test code = 2274544958) 2.80 cm2 LVIDD (test code = 1983573171) 4.60 cm Left Ventricular End Diastolic Volume by Teichholz Method (test code = 3319758) 97.5 mL IVS (test code = 3796683113) 1.13 cm Interventricular Septum Diastolic Thickness by 2D (test code = 1941572) 1.13 cm LVPWD (test code = 6069782278) 1.09 cm PW (test code = 1195105359) 1.09 cm 0.6-1.1 EF(Teich) (test code = 9814872191) 70.20 % LVIDS (test code = 1264688958) 2.80 cm Left Ventricular End Systolic Volume by Teichholz Method (test code = 1272053) 29.0 mL FS (test code = 4988911704) 40 % EF - 2D (test code = 33992285) 70.20 % MV valve area p 1/2 method (test code = 1431575442) 4.30 cm2 MV dec slope (test code = 7497790166) 654.10 cm/s2 MV P1/2t max kylah (test code = 3195123736) 113.10 cm/s MV Peak A Kylah (test code = 9344843169) 90.0 cm/s MV Prop V (test code = 0555913944) 101.60 cm/s LAV(MOD-sp4) (test code = 4434482346) 50.50 mL Tapse (test code = 1801469963) 2.17 cm TASV (test code = 4697861601) 14.6 cm/s MV E/e' septal (test code = 0499917384) 6.7 cm/s LVOT stroke volume (test code = 2876275707) 83.40 cm3 LVOT peak kylah (test code = 7168747237) 159.8 cm/s LVOT mn grad (test code = 0021608113) 4.7 mmHg AV LVOT peak gradient (test code = 1252953136) 10.2 mmHg LVOT peak VTI (test code = 0683275950) 29.8 cm LV V1 mean (test code = 2439841979) 99.10 cm/s Aortic valve mean velocity (test code = 5752329504) 124.0 cm/s Ao peak kylah (test code = 3619215122) 173.7 cm/s Ao VTI (test code = 7122383125) 34.4 cm AV area by cont VTI (test code = 9277564773) 2.4 cm2 AV area peak kylah (test code = 2957242735) 2.6 cm2 Ao max PG (test code = 5024805090) 12.10 mm[Hg] AV peak gradient (test code = 7240094210) 12.1 mmHg AV valve area (test code = 3419322478) 2.43 cm2 AV mean gradient (test code = 5894485427) 6.7 mmHg Left Ventricular Cardiac Output (test code = 9366646) 6.1 L/min Aortic HR (test code = 9380286969) 73.80 BPM LA Volume Index (BP) (test code = 1974854961) 31.6 mL/m2 LA volume (BP) (test code = 7587129860) 61.1 mL LAV(MOD-sp2) (test code = 4598017291) 63.50 mL MV Peak E Kylah (test code = 6426809287) 114.0 cm/s E/A ratio (test code = 1126304664) 1.27 ratio Radiology Study observation (narrative) (test code = 62864-2) LUCILLE (test code = LUCILLE) ?Left?Ventricle: Left ventricle size is normal. There is mild concentric hypertrophy. Normal wall motion. Hyperdynamic systolic function with a visually estimated EF of greater than 65%. Diastolic dysfunction. Indeterminate left ventricular filling pressure. ?Tricuspid?Valve: Trace transvalvular regurgitation. Insufficient tricuspid regurgitation jet to estimate RVSP . ?IVC/SVC: IVC diameter is less than or equal to 21 mm and decreases greater than 50% during inspiration; therefore the estimated right atrial pressure is normal (~0-5 mmHg). Left VentricleLeft ventricle size is normal. There is mild concentric hypertrophy. Normal wall motion. Hyperdynamic systolic function with a visually estimated EF of greater than 65%. Diastolic dysfunction. Indeterminate left ventricular filling pressure.Right VentricleRight ventricle size is normal. Normal systolic function.Left AtriumLeft atrium size is normal. Left atrium volume index is 31.6 mL/m2.Right AtriumRight atrium size is normal.IVC/SVCIVC diameter is less than or equal to 21 mm and decreases greater than 50% during inspiration; therefore the estimated right atrial pressure is normal (~0-5 mmHg).Mitral ValveMitral valve structure is normal. Trace transvalvular regurgitation. No stenosis.Tricuspid ValveNot well visualized. Trace transvalvular regurgitation. Insufficient tricuspid regurgitation jet to estimate RVSP . No stenosis.Aortic ValveAortic valve structure is normal. No transvalvular regurgitation. No evidence of aortic stenosis.Pulmonic ValveNot well visualized. No transvalvular regurgitation. No stenosis.Ascending AortaNormal sized aortic root.PericardiumEvide nce of epicardial fat. No pericardial effusion.Study DetailsStudy quality was adequate. A complete echocardiogram was performed using 2D, color flow Doppler and strain. The apical, parasternal, subcostal and suprasternal views were obtained. 5 mL of Lumason ultrasound enhancing agent used. Patient exhibited sinus rhythm. [facility] Shoulder 2+ vw [id number] 16:03:47 EXAM: Right shoulder 3 views HISTORY: Right shoulder pain TECHNIQUE:3 images of the right shoulder are obtained. COMPARISON: 05/31/2022 FINDINGS: No acute fracture or dislocation is identified. Degenerative changes areseen in the AC joint as well as in the glenohumeral joint in the form ofosteophyteformation at the articular surfaces. No bone lesion is seen.[facility] 1 [id number] 14:59:46EXAM: XR CHEST 1 VW COMPARISON: 03/22/2024 HISTORY: 53 years-old Female; shortness of breath and chest pain. FINDINGS: Lungs: The lung volumes are mildly low likely from poor respiratory effort.No focal opacities. No pneumothorax. No pleural effusion. Heart/Mediastinum: The cardiac silhouette appears normal. Bones and soft tissues: No acute osseous findings are detected.[facility] LakeCT CHEST PULMONARY [id number] 05:58:39PROCEDURE: CT CHEST WITH CONTRAST- CHEST PE PROTOCOL CLINICAL INDICATION: Pulmonary embolism (PE) suspected, unknown D-dimer ? Comparison: ?11/05/2022 TECHNIQUE: Volumetric helical CT angiogram was performed of the chest (lungapices to bases) with IV contrast. Images were reconstructed at 1.25 mmslice thickness. Corresponding axial, sagittal and coronal MIP images wereperformed. Axial MIPs and coronal and sagittal MPR images were generatedand reviewed.. FINDINGS: HEART AND GREAT VESSELS: The opacification of the pulmonary vasculature isappropriate. No filling defects are seen through the level of the segmentalpulmonary arteries.The pulmonary trunk is normal in caliber. The thoracic aorta is normal in caliber with no significant atheroscleroticcalcifications. There are no significant calcifications of the coronary vessels. The heart is normal in size. No pericardial abnormalities are identified.The RV to LV is normal. MEDIASTINUM AND LOWER NECK: No central airway lesions are detected. Theesophagus is within normal limits. The included thyroid gland appearsnormal. LYMPH NODES: Scatteredsmall lymph nodes in both sides of the mediastinumand hilar regions. No evidence of intrathoracic ly mphadenopathy. LUNGS AND PLEURA: Bibasilar subsegmental atelectasis, right more than left.Chronic right hemidiaphragm elevation. No focal opacities are identified.No suspicious nodules. No pleural abnormality detected. VISUALIZED UPPER ABDOMEN: The included solid organs and hollow viscusappear within normal limits. OSSEOUS STRUCTURES AND SOFT TISSUES: No focal osseous lesions are detected.The soft tissues appear normal.[facility] Thyroid Stimulating [id number] 05:45:37* Test Item Value Reference Range Interpretation Comme [facility] TSH (test code = 5498367627) 3.94 0.45-4.70 Biotin has been reported to cause a negative bias, interpret results relative to patient's use of biotin. Lab Interpretation (test code = 19181-1) Normal [facility] LakeTroponin [id number] 05:45:37* Test Item Value Reference Range Interpretation Comme nts TROPONIN I (test code = 9524810161) <=0.034 LUCILLE (test code = LUCILLE) Reference [...] of biotin. Lab Interpretation (test code = 57651-8) Normal [facility] LakeGlycosylated Hemoglobin (A1C)2024-09-11 05:27:05* Test Item Value Reference Range Interpretation Comme nts HGB A1C (test code = 4548-4) 6.1 % 4.0-5.7 H LUCILLE (test code = LUCILLE) Reference RangesNormal: <5.7%Prediabetes: 5.7 - 6.4%Diabetes: > 6.5% Lab Interpretation (test code = 25576-3) Abnormal [facility] LakeLactic Acid Whole [id number] 05:13:15* Test Item Value Reference Range Interpretation Comme nts LACTIC ACID (test code = 9904165658) 2.16 mmol/L 0.50-2.20 Lab Interpretation (test cod e = 45272-4) Normal [facility] LakeN-TERMINAL [id number] 03:05:00* Test Item Value Reference Range Interpretation Comme nts NT-proBNP (test code = 78043-7) 62 pg/mL <=125 Lab Interpretation (test cod e = 02249-1) Normal [facility] LakeTROPONIN [id number] 03:05:00* Test Item Value Reference Range Interpretation Comme nts TROPONIN I (test code = 7601605221) 0.009 ng/mL <=0.034 LUCILLE (test code = [...] of biotin. Lab Interpretation (test code = 11708-5) Normal [facility] LakeAMYLASE2025-01-09 02:53:15* Test Item Value Reference Range Interpretation Comme nts KIERA (test code = 7709143740) 55 U/L 35-110 Lab Interpretation (test cod e = 66076-1) Normal [facility] LakeLIPASE2025-01-09 02:53:15* Test Item Value Reference Range Interpretation Comme nts LIPASE (test code = 2653380980) 94 U/L 0-220 Lab Interpretation (test cod e = 34566-2) Normal [facility] LakeCOMP. METABOLIC PANEL (20436)2024-09-11 02:53:15* Test Item Value Reference Range Interpretation Comme nts NA (test code = 1790890213) 136 mmol/L 135-145 K (test code = 6176866796) 4.0 mmol/L 3.5-5.0 CL (test code = 8277937185) 105 mmol/L 98-108 CO2 TOTAL (test code = 9996191290) 23 mmol/L 23-31 AGAP (test code = 9359113271) 8 2-16 BUN (test code = 0410812318) 10 mg/dL 7-23 GLUCOSE (test code = 4745369523) 132 mg/dL 70-110 H CREATININE (test code = 2160-0) 1.24 mg/dL 0.50-1.04 H TOTAL BILI (test code = 1077927419) 0.4 mg/dL 0.1-1.1 CALCIUM (test code = 2892230159) 9.0 mg/dL 8.6-10.6 T PROTEIN (test code = 9616998931) 6.7 g/dL 6.3-8.2 ALBUMIN (test code = 1173408550) 4.2 g/dL 3.5-5.0 ALK PHOS (test code = 9384305860) 77 U/L 34-122 ALTv (test code = 1742-6) 14 U/L 5-35 AST(SGOT) (test code = 7686327602) 20 U/L 13-40 eGFR (test code = 48182-7) 52.1 mL/min/1.73m2 CKD-EPI eGFR (2020). Assuming creatinine has been stable day-to-day for at least three months, the eGFR indicates Category G3a (45 - 59 mL/min/1.73 m2) Lab Interpretation (test code = 72234-0) Abnormal [facility] LakeLactic Acid Whole [id number] 02:30:40* Test Item Value Reference Range Interpretation Comme nts LACTIC ACID (test code = 8945758246) 3.13 mmol/L 0.50-2.20 H Lab Interpretation (test cod e = 00221-8) Abnormal [facility] LakeCB WITH [id number] 02:29:55* Test Item Value Reference Range Interpretation Comme nts WBC (test code = 6690-2) 6.39 4.30-11.10 RBC (test code = 789-8) 4.48 3.93-5.25 HGB (test code = 718-7) 12.0 g/dL 11.6-15.0 HCT (test code = 4544-3) 37.2 % 35.7-45.2 MCV (test code = 787-2) 83.0 fL 80.6-95.5 MCH (test code = 785-6) 26.8 pg 25.9-32.8 MCHC (test code = 786-4) 32.3 g/dL 31.6-35.1 RDW-SD (test code = 85714-3) 47.7 fL 39.0-49.9 RDW-CV (test code = 788-0) 15.7 % 12.0-15.5 H PLT (test code = 777-3) 242 166-358 MPV (test code = 80433-9) 11.2 fL 9.5-12.9 NRBC/100 WBC (test code = 2798870748) 0.0 0.0-10.0 NRBC x10^3 (test code = 1476525383) See_Comment [Automated messa ge] The system which generated this result transmitted reference range: 10*3/?L. The reference range was not used to interpret this result as normal/abnormal. GRAN MAT (NEUT) % (test code = 770-8) 48.5 % IMM GRAN % (test code = 9915680213) 0.30 % LYMPH % (test code = 736-9) 42.3 % MONO % (test code = 5905-5) 5.5 % EOS % (test code = 713-8) 2.5 % BASO % (test code = 706-2) 0.9 % GRAN MAT x10^3(ANC) (test code = 0861040628) 3.10 10*3/uL 1.88-7.09 IMM GRAN x10^3 (test code = 2147993154) 0.00-0.06 LYMPH x10^3 (test code = 731-0) 2.70 10*3/uL 1.32-3.29 MONO x10^3 (test code = 742-7) 0.35 10*3/uL 0.33-0.92 EOS x10^3 (test code = 711-2) 0.16 10*3/uL 0.03-0.39 BASO x10^3 (test code = 704-7) 0.06 10*3/uL 0.01-0.07 Lab Interpretation (test code = 63496-7) Abnormal [facility] LakeTROPONIN [id number] 02:49:10* Test Item Value Reference Range Interpretation Comme nts TROPONIN I (test code = 0426294194) <=0.034 LUCILLE (test code = LUCILLE) Reference [...] of biotin. Lab Interpretation (test code = 62052-9) Normal [facility]. METABOLIC PANEL ([id number])2024-07-08 02:38:26* Test Item Value Reference Range Interpretation Comme nts NA (test code = 5878423568) 138 mmol/L 135-145 K (test code = 8089630998) 4.3 mmol/L 3.5-5.0 CL (test code = 0696694591) 107 mmol/L 98-108 CO2 TOTAL (test code = 5142917772) 25 mmol/L 23-31 AGAP (test code = 2581230463) 6 2-16 BUN (test code = 2056647634) 11 mg/dL 7-23 GLUCOSE (test code = 0434280452) 108 mg/dL 70-110 CREATININE (test code = 2160-0) 0.94 mg/dL 0.50-1.04 TOTAL BILI (test code = 7865923335) 0.5 mg/dL 0.1-1.1 CALCIUM (test code = 5752558486) 8.9 mg/dL 8.6-10.6 T PROTEIN (test code = 1146873085) 7.8 g/dL 6.3-8.2 ALBUMIN (test code = 8199559918) 4.7 g/dL 3.5-5.0 ALK PHOS (test code = 8551410900) 125 U/L 34-122 H ALTv (test code = 1742-6) 29 U/L 5-35 AST(SGOT) (test code = 6577447333) 34 U/L 13-40 eGFR (test code = 43932-7) 72.7 mL/min/1.73m2 CKD-EPI eGFR (2020). Assuming creatinine has been stable day-to-day for at least three months, the eGFR indicates Category G2 (60 - 89 mL/min/1.73 m2) Lab Interpretation (test code = 33585-1) Abnormal [facility] WITH [id number] 02:18:26* Test Item Value Reference Range Interpretation [...] 32.1 g/dL 31.6-35.1 RDW-SD (test code = 46675-3) 52.9 fL 39.0-49.9 H RDW-CV (test code = 788-0) 17.7 % 12.0-15.5 H PLT (test code = 777-3) 334 166-358 MPV (test code = 99973-8) 10.9 fL 9.5-12.9 NRBC/100 WBC (test code = 3872489180) 0.0 0.0-10.0 NRBC x10^3 (test code = 2461337586) See_Comment [Automated messa ge] The system which generated this result transmitted reference range: 10*3/?L. The reference range was not used to interpret this result as normal/abnormal. GRAN MAT (NEUT) % (test code = 770-8) 45.5 % IMM GRAN % (test code = 5076014738) 0.30 % LYMPH % (test code = 736-9) 41.5 % MONO % (test code = 5905-5) 9.3 % EOS % (test code = 713-8) 1.9 % BASO % (test code = 706-2) 1.5 % GRAN MAT x10^3(ANC) (test code = 4982866283) 2.64 10*3/uL 1.88-7.09 IMM GRAN x10^3 (test code = 5855430024) 0.00-0.06 LYMPH x10^3 (test code = 731-0) 2.41 10*3/uL 1.32-3.29 MONO x10^3 (test code = 742-7) 0.54 10*3/uL 0.33-0.92 EOS x10^3 (test code = 711-2) 0.11 10*3/uL 0.03-0.39 BASO x10^3 (test code = 704-7) 0.09 10*3/uL 0.01-0.07 H Lab Interpretation (test code = 63375-3) Abnormal [facility], [id number] 08:02:48SPECIMEN NUMBER: [id number] CULTURE, URINE SPECIMEN NUMBER: [id number] SOURCE: URINE REPORT STATUS: FINAL FINAL REPORT: 07/02/2024 <10,000 CFU/ML UROGENITAL GEMA PRESENT NO COMMON PATHOGENS UNLESS OTHERWISE INDICATED, ALL TESTING PERFORMED AT [facility] [address] [place] [address] HUMAN PERFORMANCE TECHNOLOGIST: BO MILLER M.D. CLIA NUMBER [id number] [facility] ACCREDITATIONNO. [id number], [id number] 00:00:00* Test Item Value Reference Range Interpretation Comme nts CULTURE, URINE (test code = 95074) SPECIMEN NUMBER: [id number] [facility], [id number] 00:00:00* Test Item Value Reference Range Interpretation Comme nts CULTURE, URINE (test code = 74370) SPECIMEN NUMBER: [id number] Dwayne John [id number] 00:00:00* Test Item Value Reference Range Interpretation Comme nts CULTURE, URINE (test code = 04852) SPECIMEN NUMBER: [id number] Dwayne John [id number] 00:00:00* Test Item Value Reference Range Interpretation Comme nts CULTURE, URINE (test code = 63524) SPECIMEN NUMBER: [id number] Dwayne John [id number] 00:00:00* Test Item Value Reference Range Interpretation Comme nts CULTURE, URINE (test code = 03991) SPECIMEN NUMBER: [id number] Dwayne John [id number] 00:00:00* Test Item Value Reference Range Interpretation Comme nts CULTURE, URINE (test code = 67915) SPECIMEN NUMBER: [id number] Dwayne John [id number] 00:00:00* Test Item Value Reference Range Interpretation Comme nts CULTURE, URINE (test code = 17462) SPECIMEN NUMBER: [id number] Dwayne John, [id number] 00:00:00* Test Item Value Reference Range Interpretation Comme nts CULTURE, URINE (test code = 49557) SPECIMEN NUMBER: [id number] Dwayne John, [id number] 00:00:00* Test Item Value Reference Range Interpretation Comme nts CULTURE, URINE (test code = 81446) SPECIMEN NUMBER: [id number] Dwayne John, [id number] 00:00:00* Test Item Value Reference Range Interpretation Comme nts CULTURE, URINE (test code = 64361) SPECIMEN NUMBER: [id number] Dwayne John [id number] 00:00:00* Test Item Value Reference Range Interpretation Comme nts CULTURE, URINE (test code = 09399) SPECIMEN NUMBER: [id number] Dwayne John [id number] 00:00:00* Test Item Value Reference Range Interpretation Comme nts CULTURE, URINE (test code = 03357) SPECIMEN NUMBER: [id number] Dwayne MyersCULTURE, [id number] 00:00:00* Test Item Value Reference Range Interpretation Comme vivek CULTURE, URINE (test code = 41917) SPECIMEN NUMBER: [id number] Dwayne MyersCULTMAL, [id number] 00:00:00* Test Item Value Reference Range Interpretation Comme vivek CULTURE, URINE (test code = 43528) SPECIMEN NUMBER: [id number] Dwayne MyersHEMOGLOBIN [id number] 00:00:00* Test Item Value Reference Range Interpretation Comme vivek HEMOGLOBIN A1c (test code = 20632) 6.4 % Dwayne MyersCOMPREHENSIVE METABOLIC [id number] 00:00:00* Test Item Value Reference Range Interpretation Comme nts GLUCOSE (test code = 2217) 95 MG/DL BUN (test code = 2208) 10 MG/DL CREATININE (test code = 2214) 1.09 MG/DL eGFR (2020 CKD-EPI) (test co de = 61433) 61 ML/MIN/1.73 CALC BUN/CREAT (test code = [...] code = 2219) 24 U/L Dwayne MyersLIPID [id number] 00:00:00* Test Item Value Reference Range Interpretation Comme nts CHOLESTEROL (test code = 2210) 241 MG/DL TRIGLYCERIDES (test code = 2232) 405 MG/DL HDL CHOLESTEROL (test code = 2220) 54 MG/DL CALC LDL CHOL (test code = 2237) (NOTE) MG/DL RISK RATIO LDL/HDL (test cod e = 2238) (NOTE) RATIO Dwayne Bah AustinHEMOGLOBIN [id number] 00:00:00* Test Item Value Reference Range Interpretation Comme nts HEMOGLOBIN A1c (test code = 57823) 6.4 % Dwayne MyersCOMPREHENSIVE METABOLIC [id number] 00:00:00* Test Item Value Reference Range Interpretation Comme nts GLUCOSE (test code = 2217) 95 MG/DL BUN (test code = 2208) 10 MG/DL CREATININE (test code = 2214) 1.09 MG/DL eGFR (2020 CKD-EPI) (test co de = 42807) 61 ML/MIN/1.73 CALC BUN/CREAT (test code = [...] (test code = 2219) 24 U/L Dwayne Bah AustinLIPID [id number] 00:00:00* Test Item Value Reference Range Interpretation Comme nts CHOLESTEROL (test code = 2210) 241 MG/DL TRIGLYCERIDES (test code = 2232) 405 MG/DL HDL CHOLESTEROL (test code = 2220) 54 MG/DL CALC LDL CHOL (test code = 2237) (NOTE) MG/DL RISK RATIO LDL/HDL (test cod e = 2238) (NOTE) RATIO Dwayne Bah AustinHEMOGLOBIN [id number] 00:00:00* Test Item Value Reference Range Interpretation Comme nts HEMOGLOBIN A1c (test code = 46716) 6.4 % Dwayne F AustinCOMPREHENSIVE METABOLIC [id number] 00:00:00* Test Item Value Reference Range Interpretation Comme nts GLUCOSE (test code = 2217) 95 MG/DL BUN (test code = 2208) 10 MG/DL CREATININE (test code = 2214) 1.09 MG/DL eGFR (2020 CKD-EPI) (test co de = 64635) 61 ML/MIN/1.73 CALC BUN/CREAT (test code = [...] code = 2219) 24 U/L Dwayne MyersLIPID [id number] 00:00:00* Test Item Value Reference Range Interpretation Comme nts CHOLESTEROL (test code = 2210) 241 MG/DL TRIGLYCERIDES (test code = 2232) 405 MG/DL HDL CHOLESTEROL (test code = 2220) 54 MG/DL CALC LDL CHOL (test code = 2237) (NOTE) MG/DL RISK RATIO LDL/HDL (test cod e = 2238) (NOTE) RATIO Dwayne MyersHEMOGLOBIN [id number] 00:00:00* Test Item Value Reference Range Interpretation Comme nts HEMOGLOBIN A1c (test code = 61063) 6.4 % Dwayne aBh AustinCOMPREHENSIVE METABOLIC [id number] 00:00:00* Test Item Value Reference Range Interpretation Comme nts GLUCOSE (test code = 2217) 95 MG/DL BUN (test code = 2208) 10 MG/DL CREATININE (test code = 2214) 1.09 MG/DL eGFR (2020 CKD-EPI) (test co de = 09396) 61 ML/MIN/1.73 CALC BUN/CREAT (test code = [...] (test code = 2219) 24 U/L Dwayne Bah AustinLIPID [id number] 00:00:00* Test Item Value Reference Range Interpretation Comme nts CHOLESTEROL (test code = 2210) 241 MG/DL TRIGLYCERIDES (test code = 2232) 405 MG/DL HDL CHOLESTEROL (test code = 2220) 54 MG/DL CALC LDL CHOL (test code = 2237) (NOTE) MG/DL RISK RATIO LDL/HDL (test cod e = 2238) (NOTE) RATIO Dwayne MyersHEMOGLOBIN [id number] 00:00:00* Test Item Value Reference Range Interpretation Comme nts HEMOGLOBIN A1c (test code = 68667) 6.4 % Dwayne Bah LouisCOMPREHENSIVE METABOLIC [id number] 00:00:00* Test Item Value Reference Range Interpretation Comme nts GLUCOSE (test code = 2217) 95 MG/DL BUN (test code = 2208) 10 MG/DL CREATININE (test code = 2214) 1.09 MG/DL eGFR (2020 CKD-EPI) (test co de = 63898) 61 ML/MIN/1.73 CALC BUN/CREAT (test code = [...] code = 2219) 24 U/L Dwayne MyersLIPID [id number] 00:00:00* Test Item Value Reference Range Interpretation Comme nts CHOLESTEROL (test code = 2210) 241 MG/DL TRIGLYCERIDES (test code = 2232) 405 MG/DL HDL CHOLESTEROL (test code = 2220) 54 MG/DL CALC LDL CHOL (test code = 2237) (NOTE) MG/DL RISK RATIO LDL/HDL (test cod e = 2238) (NOTE) RATIO Dwayne MyersHEMOGLOBIN [id number] 00:00:00* Test Item Value Reference Range Interpretation Comme nts HEMOGLOBIN A1c (test code = 72331) 6.4 % Dwayne MyersCOMPREHENSIVE METABOLIC [id number] 00:00:00* Test Item Value Reference Range Interpretation Comme nts GLUCOSE (test code = 2217) 95 MG/DL BUN (test code = 2208) 10 MG/DL CREATININE (test code = 2214) 1.09 MG/DL eGFR (2020 CKD-EPI) (test co de = 17105) 61 ML/MIN/1.73 CALC BUN/CREAT (test code = [...] (test code = 2219) 24 U/L Dwayne Bah AustinLIPID [id number] 00:00:00* Test Item Value Reference Range Interpretation Comme nts CHOLESTEROL (test code = 2210) 241 MG/DL TRIGLYCERIDES (test code = 2232) 405 MG/DL HDL CHOLESTEROL (test code = 2220) 54 MG/DL CALC LDL CHOL (test code = 2237) (NOTE) MG/DL RISK RATIO LDL/HDL (test cod e = 2238) (NOTE) RATIO Dwayne Bah AustinHEMOGLOBIN [id number] 00:00:00* Test Item Value Reference Range Interpretation Comme nts HEMOGLOBIN A1c (test code = 49320) 6.4 % Dwayne MyersCOMPREHENSIVE METABOLIC [id number] 00:00:00* Test Item Value Reference Range Interpretation Comme nts GLUCOSE (test code = 2217) 95 MG/DL BUN (test code = 2208) 10 MG/DL CREATININE (test code = 2214) 1.09 MG/DL eGFR (2020 CKD-EPI) (test co de = 32214) 61 ML/MIN/1.73 CALC BUN/CREAT (test code = [...] (test code = 2219) 24 U/L Dwayne Bah AustinLIPID [id number] 00:00:00* Test Item Value Reference Range Interpretation Comme nts CHOLESTEROL (test code = 2210) 241 MG/DL TRIGLYCERIDES (test code = 2232) 405 MG/DL HDL CHOLESTEROL (test code = 2220) 54 MG/DL CALC LDL CHOL (test code = 2237) (NOTE) MG/DL RISK RATIO LDL/HDL (test cod e = 2238) (NOTE) RATIO Dwayne MyersHEMOGLOBIN [id number] 00:00:00* Test Item Value Reference Range Interpretation Comme nts HEMOGLOBIN A1c (test code = 55237) 6.4 % Dwayne MyersCOMPREHENSIVE METABOLIC [id number] 00:00:00* Test Item Value Reference Range Interpretation Comme nts GLUCOSE (test code = 2217) 95 MG/DL BUN (test code = 2208) 10 MG/DL CREATININE (test code = 2214) 1.09 MG/DL eGFR (2020 CKD-EPI) (test co de = 44384) 61 ML/MIN/1.73 CALC BUN/CREAT (test code = [...] code = 2219) 24 U/L Dwayne MyersLIPID [id number] 00:00:00* Test Item Value Reference Range Interpretation Comme nts CHOLESTEROL (test code = 2210) 241 MG/DL TRIGLYCERIDES (test code = 2232) 405 MG/DL HDL CHOLESTEROL (test code = 2220) 54 MG/DL CALC LDL CHOL (test code = 2237) (NOTE) MG/DL RISK RATIO LDL/HDL (test cod e = 2238) (NOTE) RATIO Dwayne Bah AustinHEMOGLOBIN [id number] 00:00:00* Test Item Value Reference Range Interpretation Comme nts HEMOGLOBIN A1c (test code = 21115) 6.4 % Dwayne Bah AustinCOMPREHENSIVE METABOLIC [id number] 00:00:00* Test Item Value Reference Range Interpretation Comme nts GLUCOSE (test code = 2217) 95 MG/DL BUN (test code = 2208) 10 MG/DL CREATININE (test code = 2214) 1.09 MG/DL eGFR (2020 CKD-EPI) (test co de = 40276) 61 ML/MIN/1.73 CALC BUN/CREAT (test code = [...] (test code = 2219) 24 U/L Dwayne Bah AustinLIPID [id number] 00:00:00* Test Item Value Reference Range Interpretation Comme nts CHOLESTEROL (test code = 2210) 241 MG/DL TRIGLYCERIDES (test code = 2232) 405 MG/DL HDL CHOLESTEROL (test code = 2220) 54 MG/DL CALC LDL CHOL (test code = 2237) (NOTE) MG/DL RISK RATIO LDL/HDL (test cod e = 2238) (NOTE) RATIO Dwayne Bah AustinHEMOGLOBIN [id number] 00:00:00* Test Item Value Reference Range Interpretation Comme nts HEMOGLOBIN A1c (test code = 61665) 6.4 % Dwayne Bah AustinCOMPREHENSIVE METABOLIC [id number] 00:00:00* Test Item Value Reference Range Interpretation Comme nts GLUCOSE (test code = 2217) 95 MG/DL BUN (test code = 2208) 10 MG/DL CREATININE (test code = 2214) 1.09 MG/DL eGFR (2020 CKD-EPI) (test co de = 37044) 61 ML/MIN/1.73 CALC BUN/CREAT (test code = [...] (test code = 2219) 24 U/L Dwayne Bah AustinLIPID [id number] 00:00:00* Test Item Value Reference Range Interpretation Comme nts CHOLESTEROL (test code = 2210) 241 MG/DL TRIGLYCERIDES (test code = 2232) 405 MG/DL HDL CHOLESTEROL (test code = 2220) 54 MG/DL CALC LDL CHOL (test code = 2237) (NOTE) MG/DL RISK RATIO LDL/HDL (test cod e = 2238) (NOTE) RATIO Dwayne MyersHEMOGLOBIN [id number] 00:00:00* Test Item Value Reference Range Interpretation Comme nts HEMOGLOBIN A1c (test code = 30304) 6.4 % Dwayne MyersCOMPREHENSIVE METABOLIC [id number] 00:00:00* Test Item Value Reference Range Interpretation Comme nts GLUCOSE (test code = 2217) 95 MG/DL BUN (test code = 2208) 10 MG/DL CREATININE (test code = 2214) 1.09 MG/DL eGFR (2020 CKD-EPI) (test co de = 53479) 61 ML/MIN/1.73 CALC BUN/CREAT (test code = [...] code = 2219) 24 U/L Dwayne MyersLIPID [id number] 00:00:00* Test Item Value Reference Range Interpretation Comme nts CHOLESTEROL (test code = 2210) 241 MG/DL TRIGLYCERIDES (test code = 2232) 405 MG/DL HDL CHOLESTEROL (test code = 2220) 54 MG/DL CALC LDL CHOL (test code = 2237) (NOTE) MG/DL RISK RATIO LDL/HDL (test cod e = 2238) (NOTE) RATIO Dwayne MyersHEMOGLOBIN [id number] 00:00:00* Test Item Value Reference Range Interpretation Comme nts HEMOGLOBIN A1c (test code = 44086) 6.4 % Dwayne MyersCOMPREHENSIVE METABOLIC [id number] 00:00:00* Test Item Value Reference Range Interpretation Comme nts GLUCOSE (test code = 2217) 95 MG/DL BUN (test code = 2208) 10 MG/DL CREATININE (test code = 2214) 1.09 MG/DL eGFR (2020 CKD-EPI) (test co de = 25153) 61 ML/MIN/1.73 CALC BUN/CREAT (test code = [...] code = 2219) 24 U/L Dwayne MyersLIPID [id number] 00:00:00* Test Item Value Reference Range Interpretation Comme nts CHOLESTEROL (test code = 2210) 241 MG/DL TRIGLYCERIDES (test code = 2232) 405 MG/DL HDL CHOLESTEROL (test code = 2220) 54 MG/DL CALC LDL CHOL (test code = 2237) (NOTE) MG/DL RISK RATIO LDL/HDL (test cod e = 2238) (NOTE) RATIO Dwayne MyersHEMOGLOBIN [id number] 00:00:00* Test Item Value Reference Range Interpretation Comme nts HEMOGLOBIN A1c (test code = 64114) 6.4 % Dwayne MyersCOMPREHENSIVE METABOLIC [id number] 00:00:00* Test Item Value Reference Range Interpretation Comme nts GLUCOSE (test code = 2217) 95 MG/DL BUN (test code = 2208) 10 MG/DL CREATININE (test code = 2214) 1.09 MG/DL eGFR (2020 CKD-EPI) (test co de = 61768) 61 ML/MIN/1.73 CALC BUN/CREAT (test code = [...] code = 2219) 24 U/L Dwayne MyersLIPID [id number] 00:00:00* Test Item Value Reference Range Interpretation Comme nts CHOLESTEROL (test code = 2210) 241 MG/DL TRIGLYCERIDES (test code = 2232) 405 MG/DL HDL CHOLESTEROL (test code = 2220) 54 MG/DL CALC LDL CHOL (test code = 2237) (NOTE) MG/DL RISK RATIO LDL/HDL (test cod e = 2238) (NOTE) RATIO Dwayne MyersHEMOGLOBIN [id number] 00:00:00* Test Item Value Reference Range Interpretation Comme nts HEMOGLOBIN A1c (test code = 61697) 6.4 % Dwayne MyersCOMPREHENSIVE METABOLIC [id number] 00:00:00* Test Item Value Reference Range Interpretation Comme nts GLUCOSE (test code = 2217) 95 MG/DL BUN (test code = 2208) 10 MG/DL CREATININE (test code = 2214) 1.09 MG/DL eGFR (2020 CKD-EPI) (test co de = 99173) 61 ML/MIN/1.73 CALC BUN/CREAT (test code = [...] (test code = 2219) 24 U/L Dwayne Bah AustinLIPID [id number] 00:00:00* Test Item Value Reference Range Interpretation [...] H. PYLORI (BREATH) (test cod e = 06093) NEGATIVE Dwayne F AustinH. PYLORI (BREATH)2024-04-21 00:00:00* Test Item Value Reference Range Interpretation Comme nts H. PYLORI (BREATH) (test cod e = 75945) NEGATIVE Dwayne F AustinH. PYLORI (BREATH)2024-04-21 00:00:00* Test Item Value Reference Range Interpretation Comme nts H. PYLORI (BREATH) (test cod e = 25263) NEGATIVE Dwayne F AustinH. PYLORI (BREATH)2024-04-21 00:00:00* Test Item Value Reference Range Interpretation Comme nts H. PYLORI (BREATH) (test cod e = 04052) NEGATIVE Dwayne F AustinH. PYLORI (BREATH)2024-04-21 00:00:00* Test Item Value Reference Range Interpretation Comme nts H. PYLORI (BREATH) (test cod e = 31791) NEGATIVE Dwayne F AustinH. PYLORI (BREATH)2024-04-21 00:00:00* Test Item Value Reference Range Interpretation Comme nts H. PYLORI (BREATH) (test cod e = 94558) NEGATIVE Dwayne F AustinH. PYLORI (BREATH)2024-04-21 00:00:00* Test Item Value Reference Range Interpretation Comme nts H. PYLORI (BREATH) (test cod e = 07448) NEGATIVE Dwayne F AustinH. PYLORI (BREATH)2024-04-21 00:00:00* Test Item Value Reference Range Interpretation Comme nts H. PYLORI (BREATH) (test cod e = 93292) NEGATIVE Dwayne F AustinH. PYLORI (BREATH)2024-04-21 00:00:00* Test Item Value Reference Range Interpretation Comme nts H. PYLORI (BREATH) (test cod e = 53927) NEGATIVE Dwayne Bah AustinH. PYLORI (BREATH)2024-04-21 00:00:00* Test Item Value Reference Range Interpretation Comme nts H. PYLORI (BREATH) (test cod e = 13496) NEGATIVE Dwayne Bah AustinH. PYLORI (BREATH)2024-04-21 00:00:00* Test Item Value Reference Range Interpretation Comme nts H. PYLORI (BREATH) (test cod e = 06263) NEGATIVE Dwayne Bah AustinH. PYLORI (BREATH)2024-04-21 00:00:00* Test Item Value Reference Range Interpretation Comme nts H. PYLORI (BREATH) (test cod e = 86911) NEGATIVE Dwayne Bah AustinH. PYLORI (BREATH)2024-04-21 00:00:00* Test Item Value Reference Range Interpretation Comme nts H. PYLORI (BREATH) (test cod e = 53788) NEGATIVE Dwayne Bah AustinH. PYLORI (BREATH)2024-04-21 00:00:00* Test Item Value Reference Range Interpretation Comme nts H. PYLORI (BREATH) (test cod e = 58057) NEGATIVE Dwayne Bah AustinH. PYLORI (BREATH)2024-04-21 00:00:00* Test Item Value Reference Range Interpretation Comme nts H. PYLORI (BREATH) (test cod e = 88722) NEGATIVE Dwayne Bah AustinH. PYLORI (BREATH)2024-04-21 00:00:00* Test Item Value Reference Range Interpretation Comme nts H. PYLORI (BREATH) (test cod e = 40040) NEGATIVE Dwayne MyersCULTURE, [id number] 00:00:00* Test Item Value Reference Range Interpretation Comme nts CULTURE, URINE (test code = 48187) SPECIMEN NUMBER: [id number] Dwayne MyersCULTURE, [id number] 00:00:00* Test Item Value Reference Range Interpretation Comme nts CULTURE, URINE (test code = 01604) SPECIMEN NUMBER: [id number] Dwayne MyersCULTURE, [id number] 00:00:00* Test Item Value Reference Range Interpretation Comme nts CULTURE, URINE (test code = 76302) SPECIMEN NUMBER: [id number] Dwayne MyersCULTURE, [id number] 00:00:00* Test Item Value Reference Range Interpretation Comme nts CULTURE, URINE (test code = 57749) SPECIMEN NUMBER: [id number] Dwayne John, [id number] 00:00:00* Test Item Value Reference Range Interpretation Comme nts CULTURE, URINE (test code = 52147) SPECIMEN NUMBER: [id number] Dwayne John, [id number] 00:00:00* Test Item Value Reference Range Interpretation Comme nts CULTURE, URINE (test code = 86521) SPECIMEN NUMBER: [id number] Dwayne HobsonLTMAL, [id number] 00:00:00* Test Item Value Reference Range Interpretation Comme nts CULTURE, URINE (test code = 70839) SPECIMEN NUMBER: [id number] Dwayne John, [id number] 00:00:00* Test Item Value Reference Range Interpretation Comme nts CULTURE, URINE (test code = 26514) SPECIMEN NUMBER: [id number] Dwayne John, [id number] 00:00:00* Test Item Value Reference Range Interpretation Comme nts CULTURE, URINE (test code = 47592) SPECIMEN NUMBER: [id number] Dwayne HobsonLTMLA, [id number] 00:00:00* Test Item Value Reference Range Interpretation Comme nts CULTURE, URINE (test code = 82568) SPECIMEN NUMBER: [id number] Dwayne John, [id number] 00:00:00* Test Item Value Reference Range Interpretation Comme nts CULTURE, URINE (test code = 92926) SPECIMEN NUMBER: [id number] Dwayne HobsonLTMAL, [id number] 00:00:00* Test Item Value Reference Range Interpretation Comme nts CULTURE, URINE (test code = 14293) SPECIMEN NUMBER: [id number] Dwayne HobsonLTMAL, [id number] 00:00:00* Test Item Value Reference Range Interpretation Comme nts CULTURE, URINE (test code = 84382) SPECIMEN NUMBER: [id number] Dwayne HobsonLTMAL, [id number] 00:00:00* Test Item Value Reference Range Interpretation Comme nts CULTURE, URINE (test code = 38023) SPECIMEN NUMBER: [id number] Dwayne HobsonLTMAL, [id number] 00:00:00* Test Item Value Reference Range Interpretation Comme nts CULTURE, URINE (test code = 54604) SPECIMEN NUMBER: [id number] Dwayne John, [id number] 00:00:00* Test Item Value Reference Range Interpretation Comme nts CULTURE, URINE (test code = 58358) SPECIMEN NUMBER: [id number] Dwayne MyersPAP TEST, THINPREP, [id number] 17:20:29* Test Item Value Reference Range Interpretation Comme nts SOURCE: (test code = 8001) Cervical/Endoce rvical SLIDES: (test code = 8011) 1 LMP: (test code = 8021) NOT GIVEN SPECIMEN ADEQUACY: (test code = 22427) (NOTE) Satisfactory for evaluation. Endocervical cells/transformation zone component not identified. INTERPRETATION: (test code = 66690) NILM/NO EPITH. ABNORMALITY;SEE BELOW --- - NEGATIVE FOR INTRAEPITHELIAL LESION OR MALIGNANCY (NILM) ---- OTHER COMMENTS: (test code = 8081) (NOTE) Fungal organisms consistent with Deb present. SUPERVISOR ORDER TAKERS : (test code = 8101) Mala Hernandez LOCATION: (test code = 38371) (NOTE) Specimens proces sed and interpreted at [facility], [address] [place] [address], , CLIA: [id number] CPT: (test code = 8140) 134[address] UNLESS OTHERWISE INDICATED, COMPUTER AIDED AND SUPERVISOR ORDER TAKERS SCREENING PERFORMED. The Pap test is a [...] ALL TESTING PERFORMED AT [facility], [facility]. [address] [place], [place] [address] HUMAN PERFORMANCE TECHNOLOGIST: BO MILLER M.D. CLIA NUMBER [id number] [place]. [id number] VAGINAL PATHOGENS DNA [id number] 13:50:10* Test Item Value Reference Range Interpretation Comme nts DEB SPECIES (test code = ) POSITIVE NEGATIVE A G. VAGINALIS (test code = 15890) NEGATIVE NEGATIVE T. VAGINALIS (test code = 68122) NEGATIVE NEGATIVE Note: The [employer] VPIII Microbial Identification Testis a DNA probe test intended for use in the detectionand identification of Deb species, Gardnerellavaginalis and Trichomonas vaginalis nucleic acid. UNLESS OTHERWISE INDICATED, ALL TESTING PERFORMED AT [facility] [employer], [facility]. [address] [place] [address] HUMAN PERFORMANCE TECHNOLOGIST: BO MILLER M.D. CLIA NUMBER [id number] [place]. [id number] PAP TEST, THINPREP, [id number] 00:00:00* Test Item Value Reference Range Interpretation Comme nts SOURCE: (test code = 8001) Cervical/Endocervical SLIDES: (test code = 8011) 1 LMP: (test code = 8021) NOT GIVEN SPECIMEN ADEQUACY: (test code = 86239) (NOTE) INTERPRETATION: (test code = 90916) NILM/NO EPITH. ABNORMALITY;SEE BELOW OTHER COMMENTS: (test code = 8081) (NOTE) SUPERVISOR ORDER TAKERS: (test code = 8101) Mala Hernandez LOCATION: (test code = 57461) (NOTE) CPT: (test code = 8140) 21527 PDFE (test code = PDFReport) PDF Dwayne Bah [facility] DNA [id number] 00:00:00* Test Item Value Reference Range Interpretation Comme nts DEB SPECIES (test code = 78091) POSITIVE G. VAGINALIS (test code = 50372) NEGATIVE T. VAGINALIS (test code = 23570) NEGATIVE Dwayne Bah AustinVAGINAL PATHOGENS DNA [id number] 00:00:00* Test Item Value Reference Range Interpretation Comme nts DEB SPECIES (test code = ) POSITIVE G. VAGINALIS (test code = 17326) NEGATIVE T. VAGINALIS (test code = 66919) NEGATIVE Dwayne MyersPAP TEST, THINPREP, [id number] 00:00:00* Test Item Value Reference Range Interpretation Comme nts SOURCE: (test code = 8001) Cervical/Endocervical SLIDES: (test code = 8011) 1 LMP: (test code = 8021) NOT GIVEN SPECIMEN ADEQUACY: (test code = 42211) (NOTE) INTERPRETATION: (test code = 04117) NILM/NO EPITH. ABNORMALITY;SEE BELOW OTHER COMMENTS: (test code = 8081) (NOTE) SUPERVISOR ORDER TAKERS: (test code = 8101) Mala Hernandez LOCATION: (test code = 23939) (NOTE) CPT: (test code = 8140) 32763 PDFE (test code = PDFReport) PDF Dwayne MyersPAP TEST, THINPREP, [id number] 00:00:00* Test Item Value Reference Range Interpretation Comme nts SOURCE: (test code = 8001) Cervical/Endocervical SLIDES: (test code = 8011) 1 LMP: (test code = 8021) NOT GIVEN SPECIMEN ADEQUACY: (test code = 69167) (NOTE) INTERPRETATION: (test code = 20416) NILM/NO EPITH. ABNORMALITY;SEE BELOW OTHER COMMENTS: (test code = 8081) (NOTE) SUPERVISOR ORDER TAKERS: (test code = 8101) Mala Hernandez LOCATION: (test code = 76866) (NOTE) CPT: (test code = 8140) 63739 PDFE (test code = PDFReport) PDF Dwayne Bah AustinVAGINAL PATHOGENS DNA [id number] 00:00:00* Test Item Value Reference Range Interpretation Comme nts DEB SPECIES (test code = ) POSITIVE G. VAGINALIS (test code = 79234) NEGATIVE T. VAGINALIS (test code = 37308) NEGATIVE Dwayne MyersPAP TEST, THINPREP, [id number] 00:00:00* Test Item Value Reference Range Interpretation Comme nts SOURCE: (test code = 8001) Cervical/Endocervical SLIDES: (test code = 8011) 1 LMP: (test code = 8021) NOT GIVEN SPECIMEN ADEQUACY: (test code = 63073) (NOTE) INTERPRETATION: (test code = 72647) NILM/NO EPITH. ABNORMALITY;SEE BELOW OTHER COMMENTS: (test code = 8081) (NOTE) SUPERVISOR ORDER TAKERS: (test code = 8101) Mala Hernandez LOCATION: (test code = 83267) (NOTE) CPT: (test code = 8140) 37320 PDFE (test code = PDFReport) PDF Dwayne Bah [facility]VAGIN[facility] PATH[facility] DNA [id number] 00:00:00* Test Item Value Reference Range Interpretation Comme nts DEB SPECIES (test code = ) POSITIVE G. VAGINALIS (test code = 78260) NEGATIVE T. VAGINALIS (test code = 33865) NEGATIVE Dwayne Bah AustinPAP TEST, THINPREP, [id number] 00:00:00* Test Item Value Reference Range Interpretation Comme nts SOURCE: (test code = 8001) Cervical/Endocervical SLIDES: (test code = 8011) 1 LMP: (test code = 8021) NOT GIVEN SPECIMEN ADEQUACY: (test code = 67238) (NOTE) INTERPRETATION: (test code = 75120) NILM/NO EPITH. ABNORMALITY;SEE BELOW OTHER COMMENTS: (test code = 8081) (NOTE) SUPERVISOR ORDER TAKERS: (test code = 8101) Mala Hernandez LOCATION: (test code = 73668) (NOTE) CPT: (test code = 8140) 75402 PDFE (test code = PDFReport) PDF Dwayne F AustinVAGINAL PATHOGENS DNA [id number] 00:00:00* Test Item Value Reference Range Interpretation Comme nts DEB SPECIES (test code = 83888) POSITIVE G. VAGINALIS (test code = 74460) NEGATIVE T. VAGINALIS (test code = 62226) NEGATIVE Dwayne Bah AustinVAGIN[facility] PATH[facility]ENS DNA [id number] 00:00:00* Test Item Value Reference Range Interpretation Comme nts DEB SPECIES (test code = 71040) POSITIVE G. VAGINALIS (test code = 49282) NEGATIVE T. VAGINALIS (test code = 20103) NEGATIVE Dwayne Bah AustinPAP TEST, THINPREP, [id number] 00:00:00* Test Item Value Reference Range Interpretation Comme nts SOURCE: (test code = 8001) Cervical/Endocervical SLIDES: (test code = 8011) 1 LMP: (test code = 8021) NOT GIVEN SPECIMEN ADEQUACY: (test code = 27609) (NOTE) INTERPRETATION: (test code = 74697) NILM/NO EPITH. ABNORMALITY;SEE BELOW OTHER COMMENTS: (test code = 8081) (NOTE) SUPERVISOR ORDER TAKERS: (test code = 8101) Mala Hernandez LOCATION: (test code = 15006) (NOTE) CPT: (test code = 8140) 07978 PDFE (test code = PDFReport) PDF Dwayne F AustinVAGINAL PATHOGENS DNA [id number] 00:00:00* Test Item Value Reference Range Interpretation Comme nts DEB SPECIES (test code = 78369) POSITIVE G. VAGINALIS (test code = 38850) NEGATIVE T. VAGINALIS (test code = 47515) NEGATIVE Dwayne F AustinPAP TEST, THINPREP, [id number] 00:00:00* Test Item Value Reference Range Interpretation Comme nts SOURCE: (test code = 800) Cervical/Endocervical SLIDES: (test code = 801) 1 LMP: (test code = 8021) NOT GIVEN SPECIMEN ADEQUACY: (test code = 09459) (NOTE) INTERPRETATION: (test code = 48652) NILM/NO EPITH. ABNORMALITY;SEE BELOW OTHER COMMENTS: (test code = 8081) (NOTE) SUPERVISOR ORDER TAKERS: (test code = 8101) Mala Hernandez LOCATION: (test code = 36889) (NOTE) CPT: (test code = 8140) 88322 PDFE (test code = PDFReport) PDF Dwayne F AustinPAP TEST, THINPREP, [id number] 00:00:00* Test Item Value Reference Range Interpretation Comme nts SOURCE: (test code = 8001) Cervical/Endocervical SLIDES: (test code = 8011) 1 LMP: (test code = 8021) NOT GIVEN SPECIMEN ADEQUACY: (test code = 33362) (NOTE) INTERPRETATION: (test code = 68032) NILM/NO EPITH. ABNORMALITY;SEE BELOW OTHER COMMENTS: (test code = 8081) (NOTE) SUPERVISOR ORDER TAKERS: (test code = 8101) Mala Hernandez LOCATION: (test code = 66252) (NOTE) CPT: (test code = 8140) 59495 PDFE (test code = PDFReport) PDF Dwayne Bah AustinVAGINAL PATHOGENS DNA [id number] 00:00:00* Test Item Value Reference Range Interpretation Comme nts DEB SPECIES (test code = ) POSITIVE G. VAGINALIS (test code = 12836) NEGATIVE T. VAGINALIS (test code = 87027) NEGATIVE Dwayne Bah AustinVAGIN[facility] PATH[facility]ENS DNA [id number] 00:00:00* Test Item Value Reference Range Interpretation Comme nts DEB SPECIES (test code = ) POSITIVE G. VAGINALIS (test code = 00012) NEGATIVE T. VAGINALIS (test code = 83456) NEGATIVE Dwayne Bah AustinPAP TEST, THINPREP, [id number] 00:00:00* Test Item Value Reference Range Interpretation Comme nts SOURCE: (test code = 8000) Cervical/Endocervical SLIDES: (test code = 8011) 1 LMP: (test code = 8021) NOT GIVEN SPECIMEN ADEQUACY: (test code = 81183) (NOTE) INTERPRETATION: (test code = 32479) NILM/NO EPITH. ABNORMALITY;SEE BELOW OTHER COMMENTS: (test code = 8081) (NOTE) SUPERVISOR ORDER TAKERS: (test code = 8101) Mala Hernandez LOCATION: (test code = 55307) (NOTE) CPT: (test code = 8140) 10452 PDFE (test code = PDFReport) PDF Dwayne Bah AustinPAP TEST, THINPREP, [id number] 00:00:00* Test Item Value Reference Range Interpretation Comme nts SOURCE: (test code = 8001) Cervical/Endocervical SLIDES: (test code = 8011) 1 LMP: (test code = 8021) NOT GIVEN SPECIMEN ADEQUACY: (test code = 99921) (NOTE) INTERPRETATION: (test code = 28022) NILM/NO EPITH. ABNORMALITY;SEE BELOW OTHER COMMENTS: (test code = 8081) (NOTE) SUPERVISOR ORDER TAKERS: (test code = 8101) Mala Hernandez LOCATION: (test code = 71560) (NOTE) CPT: (test code = 8140) 23255 PDFE (test code = PDFReport) PDF Dwayne Bah AustinVAGINAL PATH[facility]ENS DNA [id number] 00:00:00* Test Item Value Reference Range Interpretation Comme nts DEB SPECIES (test code = ) POSITIVE G. VAGINALIS (test code = 66170) NEGATIVE T. VAGINALIS (test code = 91161) NEGATIVE Dwayne Bah AustinPAP TEST, THINPREP, [id number] 00:00:00* Test Item Value Reference Range Interpretation Comme nts SOURCE: (test code = 8001) Cervical/Endocervical SLIDES: (test code = 8011) 1 LMP: (test code = 8021) NOT GIVEN SPECIMEN ADEQUACY: (test code = 29485) (NOTE) INTERPRETATION: (test code = 57546) NILM/NO EPITH. ABNORMALITY;SEE BELOW OTHER COMMENTS: (test code = 8081) (NOTE) SUPERVISOR ORDER TAKERS: (test code = 8101) Mala Hernandez LOCATION: (test code = 54238) (NOTE) CPT: (test code = 8140) 57387 PDFE (test code = PDFReport) PDF Dwayne Bah AustinV[facility] PATH[facility]ENS DNA [id number] 00:00:00* Test Item Value Reference Range Interpretation Comme nts DEB SPECIES (test code = ) POSITIVE G. VAGINALIS (test code = 02290) NEGATIVE T. VAGINALIS (test code = 70759) NEGATIVE Dwayne Bah AustinVAGIN[facility] PATHOGENS DNA [id number] 00:00:00* Test Item Value Reference Range Interpretation Comme nts DEB SPECIES (test code = ) POSITIVE G. VAGINALIS (test code = 74952) NEGATIVE T. VAGINALIS (test code = 89106) NEGATIVE Dwayne Bah AustinPAP TEST, THINPREP, [id number] 00:00:00* Test Item Value Reference Range Interpretation Comme nts SOURCE: (test code = 800) Cervical/Endocervical SLIDES: (test code = 8011) 1 LMP: (test code = 8021) NOT GIVEN SPECIMEN ADEQUACY: (test code = 33755) (NOTE) INTERPRETATION: (test code = 01323) NILM/NO EPITH. ABNORMALITY;SEE BELOW OTHER COMMENTS: (test code = 8081) (NOTE) SUPERVISOR ORDER TAKERS: (test code = 8101) Mala Hernandez LOCATION: (test code = 15173) (NOTE) CPT: (test code = 8140) 96724 PDFE (test code = PDFReport) PDF Dwayne Bah AustinPAP TEST, THINPREP, [id number] 00:00:00* Test Item Value Reference Range Interpretation Comme nts SOURCE: (test code = 8001) Cervical/Endocervical SLIDES: (test code = 8011) 1 LMP: (test code = 8021) NOT GIVEN SPECIMEN ADEQUACY: (test code = 49556) (NOTE) INTERPRETATION: (test code = 60758) NILM/NO EPITH. ABNORMALITY;SEE BELOW OTHER COMMENTS: (test code = 8081) (NOTE) SUPERVISOR ORDER TAKERS: (test code = 8101) Mala Hernandez LOCATION: (test code = 33482) (NOTE) CPT: (test code = 8140) 43428 PDFE (test code = PDFReport) PDF Dwayne F AustinVAGINAL PATHOGENS DNA [id number] 00:00:00* Test Item Value Reference Range Interpretation Comme nts DEB SPECIES (test code = ) POSITIVE G. VAGINALIS (test code = 02131) NEGATIVE T. VAGINALIS (test code = 40965) NEGATIVE Dwayne Bah AustinPAP TEST, THINPREP, [id number] 00:00:00* Test Item Value Reference Range Interpretation Comme nts SOURCE: (test code = 8001) Cervical/Endocervical SLIDES: (test code = 8011) 1 LMP: (test code = 8021) NOT GIVEN SPECIMEN ADEQUACY: (test code = 14616) (NOTE) INTERPRETATION: (test code = 01363) NILM/NO EPITH. ABNORMALITY;SEE BELOW OTHER COMMENTS: (test code = 8081) (NOTE) SUPERVISOR ORDER TAKERS: (test code = 8101) Mala Hernandez LOCATION: (test code = 00562) (NOTE) CPT: (test code = 8140) 40731 PDFE (test code = PDFReport) PDF Dwayne F AustinVAGINAL PATHOGENS DNA [id number] 00:00:00* Test Item Value Reference Range Interpretation Comme nts DEB SPECIES (test code = 52579) POSITIVE G. VAGINALIS (test code = 31745) NEGATIVE T. VAGINALIS (test code = ) NEGATIVE Dwayne Bah AustinVAGINAL PATHOGENS DNA [id number] 00:00:00* Test Item Value Reference Range Interpretation Comme nts DEB SPECIES (test code = ) POSITIVE G. VAGINALIS (test code = 49075) NEGATIVE T. VAGINALIS (test code = ) NEGATIVE Dwayne MyersPAP TEST, THINPREP, [id number] 00:00:00* Test Item Value Reference Range Interpretation Comme nts SOURCE: (test code = 8000) Cervical/Endocervical SLIDES: (test code = 8011) 1 LMP: (test code = 8021) NOT GIVEN SPECIMEN ADEQUACY: (test code = 62945) (NOTE) INTERPRETATION: (test code = 61780) NILM/NO EPITH. ABNORMALITY;SEE BELOW OTHER COMMENTS: (test code = 8081) (NOTE) SUPERVISOR ORDER TAKERS: (test code = 8101) Mala Hernandez LOCATION: (test code = 89234) (NOTE) CPT: (test code = 8140) 73766 PDFE (test code = PDFReport) PDF Dwayne Bah AustinVAGINAL PATHOGENS DNA [id number] 00:00:00* Test Item Value Reference Range Interpretation Comme nts DEB SPECIES (test code = ) POSITIVE G. VAGINALIS (test code = ) NEGATIVE T. VAGINALIS (test code = ) NEGATIVE Dwayne MyersPAP TEST, THINPREP, [id number] 00:00:00* Test Item Value Reference Range Interpretation Comme nts SOURCE: (test code = 8000) Cervical/Endocervical SLIDES: (test code = 801) 1 LMP: (test code = 8021) NOT GIVEN SPECIMEN ADEQUACY: (test code = 34284) (NOTE) INTERPRETATION: (test code = 09713) NILM/NO EPITH. ABNORMALITY;SEE BELOW OTHER COMMENTS: (test code = 8081) (NOTE) SUPERVISOR ORDER TAKERS: (test code = 8101) Mala Hernandez LOCATION: (test code = 56606) (NOTE) CPT: (test code = 8140) 91767 PDFE (test code = PDFReport) PDF Dwayne Bah AustinVAGINAL PATHOGENS DNA [id number] 00:00:00* Test Item Value Reference Range Interpretation Comme nts DEB SPECIES (test code = 62748) POSITIVE G. VAGINALIS (test code = 07518) NEGATIVE T. VAGINALIS (test code = 83977) NEGATIVE Dwayne LainezP TEST, THINPREP, [id number] 00:00:00* Test Item Value Reference Range Interpretation Comme nts SOURCE: (test code = 8001) Cervical/Endocervical SLIDES: (test code = 8011) 1 LMP: (test code = 8021) NOT GIVEN SPECIMEN ADEQUACY: (test code = 39325) (NOTE) INTERPRETATION: (test code = 79732) NILM/NO EPITH. ABNORMALITY;SEE BELOW OTHER COMMENTS: (test code = 8081) (NOTE) SUPERVISOR ORDER TAKERS: (test code = 8101) Mala Hernandez LOCATION: (test code = 90036) (NOTE) CPT: (test code = 8140) 76137 PDFE (test code = PDFReport) PDF Dwayne Bah AustinH. PYLORI (BREATH)2024-04-02 16:44:18* Test Item Value Reference Range Interpretation Comme nts H. PYLORI (BREATH) (test code = 21961) NEGATIVE NEGATIVE UNLESS OTHER HAMMONDS INDICATED, ALL TESTING PERFORMED AT [facility] [address] [place] [address] HUMAN PERFORMANCE TECHNOLOGIST: BO MILLER M.D. [place] NUMBER [id number] [facility] [place]. [id number] H. PYLORI (BREATH)2024-04-02 00:00:00* Test Item Value Reference Range Interpretation Comme nts H. PYLORI (BREATH) (test cod e = 04713) NEGATIVE Dwayne Bah AustinH. PYLORI (BREATH)2024-04-02 00:00:00* Test Item Value Reference Range Interpretation Comme nts H. PYLORI (BREATH) (test cod e = 05355) NEGATIVE Dwayne Bah AustinH. PYLORI (BREATH)2024-04-02 00:00:00* Test Item Value Reference Range Interpretation Comme nts H. PYLORI (BREATH) (test cod e = 04073) NEGATIVE Dwayne Bah AustinH. PYLORI (BREATH)2024-04-02 00:00:00* Test Item Value Reference Range Interpretation Comme nts H. PYLORI (BREATH) (test cod e = 55845) NEGATIVE Dwayne Bah AustinH. PYLORI (BREATH)2024-04-02 00:00:00* Test Item Value Reference Range Interpretation Comme nts H. PYLORI (BREATH) (test cod e = 49824) NEGATIVE Dwayne F AustinH. PYLORI (BREATH)2024-04-02 00:00:00* Test Item Value Reference Range Interpretation Comme nts H. PYLORI (BREATH) (test cod e = 95979) NEGATIVE Dwayne F AustinH. PYLORI (BREATH)2024-04-02 00:00:00* Test Item Value Reference Range Interpretation Comme nts H. PYLORI (BREATH) (test cod e = 41862) NEGATIVE Dwayne F AustinH. PYLORI (BREATH)2024-04-02 00:00:00* Test Item Value Reference Range Interpretation Comme nts H. PYLORI (BREATH) (test cod e = 77342) NEGATIVE Dwayne F AustinH. PYLORI (BREATH)2024-04-02 00:00:00* Test Item Value Reference Range Interpretation Comme nts H. PYLORI (BREATH) (test cod e = 20680) NEGATIVE Dwayne F AustinH. PYLORI (BREATH)2024-04-02 00:00:00* Test Item Value Reference Range Interpretation Comme nts H. PYLORI (BREATH) (test cod e = 82451) NEGATIVE Dwayne F AustinH. PYLORI (BREATH)2024-04-02 00:00:00* Test Item Value Reference Range Interpretation Comme nts H. PYLORI (BREATH) (test cod e = 80729) NEGATIVE Dwayne F AustinH. PYLORI (BREATH)2024-04-02 00:00:00* Test Item Value Reference Range Interpretation Comme nts H. PYLORI (BREATH) (test cod e = 83033) NEGATIVE Dwayne F AustinH. PYLORI (BREATH)2024-04-02 00:00:00* Test Item Value Reference Range Interpretation Comme nts H. PYLORI (BREATH) (test cod e = 24999) NEGATIVE Dwayne F AustinH. PYLORI (BREATH)2024-04-02 00:00:00* Test Item Value Reference Range Interpretation Comme nts H. PYLORI (BREATH) (test cod e = 55559) NEGATIVE Dwayne F AustinH. PYLORI (BREATH)2024-04-02 00:00:00* Test Item Value Reference Range Interpretation Comme nts H. PYLORI (BREATH) (test cod e = 39138) NEGATIVE Dwayne Bah AustinH. PYLORI (BREATH)2024-04-02 00:00:00* Test Item Value Reference Range Interpretation Comme nts H. PYLORI (BREATH) (test cod e = 70768) NEGATIVE Dwayne Bah AustinH. PYLORI (BREATH)2024-04-02 00:00:00* Test Item Value Reference Range Interpretation Comme nts H. PYLORI (BREATH) (test cod e = 26332) NEGATIVE Dwayne Bah AustinH. PYLORI (BREATH)2024-04-02 00:00:00* Test Item Value Reference Range Interpretation Comme nts H. PYLORI (BREATH) (test cod e = 78549) NEGATIVE Dwayne Bah AustinH. PYLORI (BREATH)2024-04-02 00:00:00* Test Item Value Reference Range Interpretation Comme nts H. PYLORI (BREATH) (test cod e = 42154) NEGATIVE Dwayne MyersTROPONIN [id number] 23:42:55* Test Item Value Reference Range Interpretation Comme nts TROPONIN I (test code = 6100420852) 0.008 ng/mL <=0.034 LUCILLE (test code = [...] of biotin. Lab Interpretation (test code = 82007-6) Normal [facility]. METABOLIC PANEL (37989)2024-03-22 23:32:19* Test Item Value Reference Range Interpretation Comme nts NA (test code = 5310707595) 140 mmol/L 135-145 K (test code = 3065087398) 4.2 mmol/L 3.5-5.0 Slight hemolysis CL (test code = 4280298451) 107 mmol/L 98-108 CO2 TOTAL (test code = 8593381396) 26 mmol/L 23-31 AGAP (test code = 3850888315) 7 2-16 BUN (test code = 8548539118) 12 mg/dL 7-23 Slight hemolysis GLUCOSE (test code = 9813817926) 114 mg/dL 70-110 H CREATININE (test code = 2160-0) 0.80 mg/dL 0.50-1.04 TOTAL BILI (test code = 0302357843) 0.5 mg/dL 0.1-1.1 CALCIUM (test code = 2592246156) 9.2 mg/dL 8.6-10.6 T PROTEIN (test code = 9645826361) 7.9 g/dL 6.3-8.2 ALBUMIN (test code = 7487540476) 4.5 g/dL 3.5-5.0 ALK PHOS (test code = 4273700450) 159 U/L 34-122 H Slight hemolysis ALTv (test code = 1742-6) 14 U/L 5-35 AST(SGOT) (test code = 8476730496) 35 U/L 13-40 Slight hemolysis eGFR (test code = 50204-4) 88.2 mL/min/1.73m2 CKD-EPI eGFR (2020). Assuming creatinine has been stable day-to-day for at least three months, the eGFR indicates Category G2 (60 - 89 mL/min/1.73 m2) Lab Interpretation (test code = 28244-8) [facility] 23:32:19* Test Item Value Reference Range Interpretation Comme nts LIPASE (test code = 2991790052) 73 U/L 0-220 Lab Interpretation (test cod e = 83752-7) Normal [facility] LakeCBC WITH [id number] 23:09:14* Test Item Value Reference Range Interpretation [...] g/dL 31.6-35.1 L RDW-SD (test code = 86734-2) 44.5 fL 39.0-49.9 RDW-CV (test code = 788-0) 14.8 % 12.0-15.5 PLT (test code = 777-3) 273 166-358 MPV (test code = 98614-4) 10.5 fL 9.5-12.9 NRBC/100 WBC (test code = 3627061394) 0.0 0.0-10.0 NRBC x10^3 (test code = 6500430315) See_Comment [Automated messa ge] The system which generated this result transmitted reference range: 10*3/?L. The reference range was not used to interpret this result as normal/abnormal. GRAN MAT (NEUT) % (test code = 770-8) 50.4 % IMM GRAN % (test code = 6424611826) 0.20 % LYMPH % (test code = 736-9) 34.1 % MONO % (test code = 5905-5) 12.1 % EOS % (test code = 713-8) 2.0 % BASO % (test code = 706-2) 1.2 % GRAN MAT x10^3(ANC) (test code = 0438045126) 2.55 10*3/uL 1.88-7.09 IMM GRAN x10^3 (test code = 7200876829) 0.00-0.06 LYMPH x10^3 (test code = 731-0) 1.72 10*3/uL 1.32-3.29 MONO x10^3 (test code = 742-7) 0.61 10*3/uL 0.33-0.92 EOS x10^3 (test code = 711-2) 0.10 10*3/uL 0.03-0.39 BASO x10^3 (test code = 704-7) 0.06 10*3/uL 0.01-0.07 Lab Interpretation (test code = 19557-8) Abnormal [facility], [id number] 13:40:06SPECIMEN NUMBER: [id number] CULTURE, URINE SPECIMEN NUMBER: [id number] SPECIMEN COMMENT: URINE SOURCE: URINE REPORT STATUS: [...] TESTING PERFORMED AT [facility] [address] [place] [address] HUMAN PERFORMANCE TECHNOLOGIST: BO MILLER M.D. CLIA NUMBER [id number] [facility]. [id number]- REQUEST/[id number] 13:40:01Ordered by an unspecified provider.[facility], URINE 2024-01-10 00:00:00* Test Item Value Reference Range Interpretation Comme nts CULTURE, URINE (test code = 90241) SPECIMEN NUMBER: [id number] YOSVANY Hylton2024-05-09 00:00:00* Test Item Value Reference Range Interpretation Comme nts CULTURE, URINE (test code = 93519) SPECIMEN NUMBER: [id number] YOSVANY Hylton2024-05-09 00:00:00* Test Item Value Reference Range Interpretation Comme nts CULTURE, URINE (test code = 42930) SPECIMEN NUMBER: [id number] YOSVANY Hlyton2024-05-09 00:00:00* Test Item Value Reference Range Interpretation Comme nts CULTURE, URINE (test code = 92833) SPECIMEN NUMBER: [id number] YOSVANY Hylton2024-05-09 00:00:00* Test Item Value Reference Range Interpretation Comme nts CULTURE, URINE (test code = 02806) SPECIMEN NUMBER: [id number] Dwayne John [id number] 00:00:00* Test Item Value Reference Range Interpretation Comme nts CULTURE, URINE (test code = 41387) SPECIMEN NUMBER: [id number] Dwayne John [id number] 00:00:00* Test Item Value Reference Range Interpretation Comme nts CULTURE, URINE (test code = 05727) SPECIMEN NUMBER: [id number] Dwayne John, [id number] 00:00:00* Test Item Value Reference Range Interpretation Comme nts CULTURE, URINE (test code = 64975) SPECIMEN NUMBER: [id number] Dwayne John [id number] 00:00:00* Test Item Value Reference Range Interpretation Comme nts CULTURE, URINE (test code = 05008) SPECIMEN NUMBER: [id number] Dwayne John [id number] 00:00:00* Test Item Value Reference Range Interpretation Comme nts CULTURE, URINE (test code = 43288) SPECIMEN NUMBER: [id number] Dwayne John, [id number] 00:00:00* Test Item Value Reference Range Interpretation Comme nts CULTURE, URINE (test code = 00305) SPECIMEN NUMBER: [id number] Dwayne John, [id number] 00:00:00* Test Item Value Reference Range Interpretation Comme nts CULTURE, URINE (test code = 38191) SPECIMEN NUMBER: [id number] Dwayne John, [id number] 00:00:00* Test Item Value Reference Range Interpretation Comme nts CULTURE, URINE (test code = 66379) SPECIMEN NUMBER: [id number] Dwayne John, [id number] 00:00:00* Test Item Value Reference Range Interpretation Comme nts CULTURE, URINE (test code = 98199) SPECIMEN NUMBER: [id number] Dwayne John, [id number] 00:00:00* Test Item Value Reference Range Interpretation Comme nts CULTURE, URINE (test code = 06723) SPECIMEN NUMBER: [id number] Dwayne HobsonLTMAL, [id number] 00:00:00* Test Item Value Reference Range Interpretation Comme nts CULTURE, URINE (test code = 87973) SPECIMEN NUMBER: [id number] Dwayne HobsonLTMAL, [id number] 00:00:00* Test Item Value Reference Range Interpretation Comme nts CULTURE, URINE (test code = 31823) SPECIMEN NUMBER: [id number] Dwayne HobsonLTMAL, [id number] 00:00:00* Test Item Value Reference Range Interpretation Comme nts CULTURE, URINE (test code = 51712) SPECIMEN NUMBER: [id number] Dwayne HobsonLTMAL, [id number] 00:00:00* Test Item Value Reference Range Interpretation Comme nts CULTURE, URINE (test code = 04809) SPECIMEN NUMBER: [id number] Dwayne HobsonLTMAL, [id number] 00:00:00* Test Item Value Reference Range Interpretation Comme nts CULTURE, URINE (test code = 49094) SPECIMEN NUMBER: [id number] Dwayne MyersCBC W/AUTO [id number] 00:00:00* Test Item Value Reference Range Interpretation [...] ABS NUCLEATED RBCS (test cod e = 41996) 0.00 K/UL Dwayne MyersPROTHROMBIN TIME (PT)2024-01-08 00:00:00* Test Item Value Reference Range Interpretation Comme nts PROTHROMBIN TIME (PT) (test code = 1402) 12.5 SECONDS INR (test code = 71049) 0.9 Dwayne [id number] 00:00:00* Test Item Value Reference Range Interpretation Comme nts PTT (test code = 1403) 27.8 SECONDS Dwayne MyersCBC W/AUTO [id number] 00:00:00* Test Item Value Reference Range Interpretation [...] ABS NUCLEATED RBCS (test cod e = 38319) 0.00 K/UL Dwayne MyersPROTHROMBIN TIME (PT)2024-01-08 00:00:00* Test Item Value Reference Range Interpretation Comme nts PROTHROMBIN TIME (PT) (test code = 1402) 12.5 SECONDS INR (test code = 39294) 0.9 Dwayne [id number] 00:00:00* Test Item Value Reference Range Interpretation Comme nts PTT (test code = 1403) 27.8 SECONDS Dwayne MyersCBC W/AUTO [id number] 00:00:00* Test Item Value Reference Range Interpretation [...] ABS NUCLEATED RBCS (test cod e = 66548) 0.00 K/UL Dwayne Bah AustinPROTHROMBIN TIME (PT)2024-01-08 00:00:00* Test Item Value Reference Range Interpretation Comme nts PROTHROMBIN TIME (PT) (test code = 1402) 12.5 SECONDS INR (test code = 67894) 0.9 Dwayne [id number] 00:00:00* Test Item Value Reference Range Interpretation Comme nts PTT (test code = 1403) 27.8 SECONDS Dwayne MyersCBC W/AUTO [id number] 00:00:00* Test Item Value Reference Range Interpretation [...] ABS NUCLEATED RBCS (test cod e = 51834) 0.00 K/UL Dwayne MyersPROTHROMBIN TIME (PT)2024-01-08 00:00:00* Test Item Value Reference Range Interpretation Comme nts PROTHROMBIN TIME (PT) (test code = 1402) 12.5 SECONDS INR (test code = 27245) 0.9 Dwayne [id number] 00:00:00* Test Item Value Reference Range Interpretation Comme nts PTT (test code = 1403) 27.8 SECONDS Dwayne MyersCBC W/AUTO [id number] 00:00:00* Test Item Value Reference Range Interpretation [...] ABS NUCLEATED RBCS (test cod e = 38275) 0.00 K/UL Dwayne MyersPROTHROMBIN TIME (PT)2024-01-08 00:00:00* Test Item Value Reference Range Interpretation Comme nts PROTHROMBIN TIME (PT) (test code = 1402) 12.5 SECONDS INR (test code = 31779) 0.9 Dwayne [id number] 00:00:00* Test Item Value Reference Range Interpretation Comme nts PTT (test code = 1403) 27.8 SECONDS Dwayne Bah AustinCBC W/AUTO [id number] 00:00:00* Test Item Value Reference Range Interpretation [...] ABS NUCLEATED RBCS (test cod e = 27774) 0.00 K/UL Dwayne MyersPROTHROMBIN TIME (PT)2024-01-08 00:00:00* Test Item Value Reference Range Interpretation Comme nts PROTHROMBIN TIME (PT) (test code = 1402) 12.5 SECONDS INR (test code = 07279) 0.9 Dwayne Bah [id number] 00:00:00* Test Item Value Reference Range Interpretation Comme nts PTT (test code = 1403) 27.8 SECONDS Dwayne MyersCBC W/AUTO [id number] 00:00:00* Test Item Value Reference Range Interpretation [...] ABS NUCLEATED RBCS (test cod e = 63049) 0.00 K/UL Dwayne MyersPROTHROMBIN TIME (PT)2024-01-08 00:00:00* Test Item Value Reference Range Interpretation Comme nts PROTHROMBIN TIME (PT) (test code = 1402) 12.5 SECONDS INR (test code = 11227) 0.9 Dwayne Niurka [id number] 00:00:00* Test Item Value Reference Range Interpretation Comme nts PTT (test code = 1403) 27.8 SECONDS Dwayne MyersCBC W/AUTO [id number] 00:00:00* Test Item Value Reference Range Interpretation [...] ABS NUCLEATED RBCS (test cod e = 35200) 0.00 K/UL Dwayne MyersPROTHROMBIN TIME (PT)2024-01-08 00:00:00* Test Item Value Reference Range Interpretation Comme nts PROTHROMBIN TIME (PT) (test code = 1402) 12.5 SECONDS INR (test code = 53347) 0.9 Dwayne [id number] 00:00:00* Test Item Value Reference Range Interpretation Comme nts PTT (test code = 1403) 27.8 SECONDS Dwayne MyersCBC W/AUTO [id number] 00:00:00* Test Item Value Reference Range Interpretation [...] ABS NUCLEATED RBCS (test cod e = 55318) 0.00 K/UL Dwayne MyersPROTHROMBIN TIME (PT)2024-01-08 00:00:00* Test Item Value Reference Range Interpretation Comme nts PROTHROMBIN TIME (PT) (test code = 1402) 12.5 SECONDS INR (test code = 38982) 0.9 Dwayne [id number] 00:00:00* Test Item Value Reference Range Interpretation Comme nts PTT (test code = 1403) 27.8 SECONDS Dwayne MyersCBC W/AUTO [id number] 00:00:00* Test Item Value Reference Range Interpretation [...] ABS NUCLEATED RBCS (test cod e = 49903) 0.00 K/UL Dwayne Bah LouisPROTHROMBIN TIME (PT)2024-01-08 00:00:00* Test Item Value Reference Range Interpretation Comme nts PROTHROMBIN TIME (PT) (test code = 1402) 12.5 SECONDS INR (test code = 84668) 0.9 Dwayne Bah [id number] 00:00:00* Test Item Value Reference Range Interpretation Comme nts PTT (test code = 1403) 27.8 SECONDS Dwayne Bah LouisCBC W/AUTO [id number] 00:00:00* Test Item Value Reference Range Interpretation [...] ABS NUCLEATED RBCS (test cod e = 52419) 0.00 K/UL Dwayne Bah LouisPROTHROMBIN TIME (PT)2024-01-08 00:00:00* Test Item Value Reference Range Interpretation Comme nts PROTHROMBIN TIME (PT) (test code = 1402) 12.5 SECONDS INR (test code = 75039) 0.9 Dwayne Bah [id number] 00:00:00* Test Item Value Reference Range Interpretation Comme nts PTT (test code = 1403) 27.8 SECONDS Dwayne MyersCBC W/AUTO [id number] 00:00:00* Test Item Value Reference Range Interpretation [...] ABS NUCLEATED RBCS (test cod e = 29710) 0.00 K/UL Dwayne MyersPROTHROMBIN TIME (PT)2024-01-08 00:00:00* Test Item Value Reference Range Interpretation Comme nts PROTHROMBIN TIME (PT) (test code = 1402) 12.5 SECONDS INR (test code = 27788) 0.9 Dwayne [id number] 00:00:00* Test Item Value Reference Range Interpretation Comme nts PTT (test code = 1403) 27.8 SECONDS Dwayne MyersCBC W/AUTO [id number] 00:00:00* Test Item Value Reference Range Interpretation [...] ABS NUCLEATED RBCS (test cod e = 09410) 0.00 K/UL Dwayne MyersPROTHROMBIN TIME (PT)2024-01-08 00:00:00* Test Item Value Reference Range Interpretation Comme nts PROTHROMBIN TIME (PT) (test code = 1402) 12.5 SECONDS INR (test code = 31904) 0.9 Dwayne [id number] 00:00:00* Test Item Value Reference Range Interpretation Comme nts PTT (test code = 1403) 27.8 SECONDS Dwayne MyersCBC W/AUTO [id number] 00:00:00* Test Item Value Reference Range Interpretation [...] ABS NUCLEATED RBCS (test cod e = 51465) 0.00 K/UL Dwayne Bah AustinPROTHROMBIN TIME (PT)2024-01-08 00:00:00* Test Item Value Reference Range Interpretation Comme nts PROTHROMBIN TIME (PT) (test code = 1402) 12.5 SECONDS INR (test code = 61283) 0.9 Dwayne [id number] 00:00:00* Test Item Value Reference Range Interpretation Comme nts PTT (test code = 1403) 27.8 SECONDS Dwayne MyersCBC W/AUTO [id number] 00:00:00* Test Item Value Reference Range Interpretation [...] ABS NUCLEATED RBCS (test cod e = 77980) 0.00 K/UL Dwayne Bah AustinPROTHROMBIN TIME (PT)2024-01-08 00:00:00* Test Item Value Reference Range Interpretation Comme nts PROTHROMBIN TIME (PT) (test code = 1402) 12.5 SECONDS INR (test code = 90135) 0.9 Dwayne [id number] 00:00:00* Test Item Value Reference Range Interpretation Comme nts PTT (test code = 1403) 27.8 SECONDS Dwayne MyersCBC W/AUTO [id number] 00:00:00* Test Item Value Reference Range Interpretation [...] ABS NUCLEATED RBCS (test cod e = 29989) 0.00 K/UL Dwayne MyersPROTHROMBIN TIME (PT)2024-01-08 00:00:00* Test Item Value Reference Range Interpretation Comme nts PROTHROMBIN TIME (PT) (test code = 1402) 12.5 SECONDS INR (test code = 45398) 0.9 Dwayne [id number] 00:00:00* Test Item Value Reference Range Interpretation Comme nts PTT (test code = 1403) 27.8 SECONDS Dwayne MyersCBC W/AUTO [id number] 00:00:00* Test Item Value Reference Range Interpretation [...] ABS NUCLEATED RBCS (test cod e = 04080) 0.00 K/UL Dwayne MyersPROTHROMBIN TIME (PT)2024-01-08 00:00:00* Test Item Value Reference Range Interpretation Comme nts PROTHROMBIN TIME (PT) (test code = 1402) 12.5 SECONDS INR (test code = 36005) 0.9 Dwayne Bah [id number] 00:00:00* Test Item Value Reference Range Interpretation Comme nts PTT (test code = 1403) 27.8 SECONDS Dwayne MyersCBC W/AUTO [id number] 00:00:00* Test Item Value Reference Range Interpretation [...] ABS NUCLEATED RBCS (test cod e = 56334) 0.00 K/UL Dwayne Niurka LouisPROTHROMBIN TIME (PT)2024-01-08 00:00:00* Test Item Value Reference Range Interpretation Comme nts PROTHROMBIN TIME (PT) (test code = 1402) 12.5 SECONDS INR (test code = 49846) 0.9 Dwayne F [id number] 00:00:00* Test Item Value Reference Range Interpretation Comme nts PTT (test code = 1403) 27.8 SECONDS Dwayne Niurka LouisCBC W/AUTO [id number] 00:00:00* Test Item Value Reference Range Interpretation [...] ABS NUCLEATED RBCS (test cod e = 66584) 0.00 K/UL Dwayne MyersPROTHROMBIN TIME (PT)2024-01-08 00:00:00* Test Item Value Reference Range Interpretation Comme nts PROTHROMBIN TIME (PT) (test code = 1402) 12.5 SECONDS INR (test code = 30645) 0.9 Dwayne [id number] 00:00:00* Test Item Value Reference Range Interpretation Comme nts PTT (test code = 1403) 27.8 SECONDS Dwayne MyersCBC W/AUTO [id number] 00:00:00* Test Item Value Reference Range Interpretation [...] ABS NUCLEATED RBCS (test cod e = 72303) 0.00 K/UL Dwayne MyersPROTHROMBIN TIME (PT)2024-01-08 00:00:00* Test Item Value Reference Range Interpretation Comme nts PROTHROMBIN TIME (PT) (test code = 1402) 12.5 SECONDS INR (test code = 21220) 0.9 Dwayne [id number] 00:00:00* Test Item Value Reference Range Interpretation Comme nts PTT (test code = 1403) 27.8 SECONDS Dwayne MyersCOMPREHENSIVE METABOLIC [id number] 05:54:09* Test Item Value Reference Range Interpretation Comme nts GLUCOSE (test code = 2217) 98 MG/DL 70-99 BUN (test code = 2208) 9 MG/DL 6-20 CREATININE (test code = 2214) 0.97 MG/DL 0.60-1.30 eGFR (2020 CKD-EPI) (test co de = 19622) 70 ML/MIN/1.73 >60 CALC BUN/CREAT (test code = 2235) 9 RATIO 6-28 SODIUM (test code = 2231) 141 MEQ/L 133-146 POTASSIUM (test code = 2228) 4.3 MEQ/L 3.5-5.4 CHLORIDE (test code = 2215) 106 MEQ/L 95-107 CARBON DIOXIDE (test code = 6) 22 MEQ/L 19-31 CALCIUM (test code = 2208) 9.7 MG/DL 8.5-10.5 PROTEIN, TOTAL (test code = 2229) 6.7 G/DL 6.1-8.3 ALBUMIN (test code = 1) 4.4 G/DL 3.5-5.2 CALC GLOBULIN (test code = 2240) 2.3 G/DL 1.9-3.7 CALC A/G RATIO (test code = 223) 1.9 RATIO 1.0-2.6 BILIRUBIN, TOTAL (test code = 2206) 0.3 MG/DL <=1.2 ALKALINE PHOSPHATASE (test code = 2203) 92 U/L 40-133 AST (test code = 2217) 15 U/L 9-40 ALT (test code = 2218) 21 U/L 5-40 LIPID [id number] 05:54:09* Test Item Value Reference Range Interpretation Comme nts CHOLESTEROL (test code = 2209) 216 MG/DL <200 H TRIGLYCERIDES (test code = 2232) 292 MG/DL <150 H HDL CHOLESTEROL (test code = 0) 56 MG/DL >39 CALC LDL CHOL (test code = 2236) 115 MG/DL <100 H NOTE: CALCULATED LDL IS BASED ON GLENIS-MIRELES METHOD WHICHINCLUDES ADJUSTABLE TRIGLYCERIDE:VLDL CHOLESTEROL RATIO.THIS FACTOR VARIES BY MEASURED TRIGLYCERIDE AND NON-HDLCHOLESTEROL CONCENTRATIONS WITH INCREASED CALCULATED LDL SEENIN HIGHER TRIGLYCERIDE OR LOWER NON-HDL SPECIMENS. FOR MOREINFORMATION, SEE CLIENT ANNOUNCEMENT AT [email or web address] RISK RATIO LDL/HDL (test code = 2238) 2.05 RATIO <3.22 UNLESS OTHERW ISE INDICATED, ALL TESTING PERFORMED AT [facility] [address] [place] [address], [place] [address] HUMAN PERFORMANCE TECHNOLOGIST: BO MILLER M.D. [place] NUMBER [id number] [facility] [place]. [id number] HEMOGLOBIN [id number] 02:34:18* Test Item Value Reference Range Interpretation Comme nts HEMOGLOBIN A1c (test code = 85551) 6.0 % 4.2-5.6 H [employer] GUIDELINES FOR HGB A1C: [...] ALTERNATE TESTING OR LABORATORY CONSULTATION. COMPREHENSIVE METABOLIC [id number] 00:00:00* Test Item Value Reference Range Interpretation Comme nts GLUCOSE (test code = 2217) 98 MG/DL BUN (test code = 2208) 9 MG/DL CREATININE (test code = 2214) 0.97 MG/DL eGFR (2020 CKD-EPI) (test co de = 18381) 70 ML/MIN/1.73 CALC BUN/CREAT (test code = [...] = 2219) 21 U/L Dwayne Bah AustinHEMOGLOBIN [id number] 00:00:00* Test Item Value Reference Range Interpretation Comme nts HEMOGLOBIN A1c (test code = 66976) 6.0 % Dwayne Bah AustinLIPID [id number] 00:00:00* Test Item Value Reference Range Interpretation Comme nts CHOLESTEROL (test code = 2210) 216 MG/DL TRIGLYCERIDES (test code = 2232) 292 MG/DL HDL CHOLESTEROL (test code = 2220) 56 MG/DL CALC LDL CHOL (test code = 2237) 115 MG/DL RISK RATIO LDL/HDL (test cod e = 2238) 2.05 RATIO Dwayne MyersCOMPREHENSIVE METABOLIC [id number] 00:00:00* Test Item Value Reference Range Interpretation Comme nts GLUCOSE (test code = 2217) 98 MG/DL BUN (test code = 2208) 9 MG/DL CREATININE (test code = 2214) 0.97 MG/DL eGFR (2020 CKD-EPI) (test co de = 64520) 70 ML/MIN/1.73 CALC BUN/CREAT (test code = [...] code = 2219) 21 U/L Dwayne MyersHEMOGLOBIN [id number] 00:00:00* Test Item Value Reference Range Interpretation Comme nts HEMOGLOBIN A1c (test code = 83389) 6.0 % Dwayne MyersLIPID [id number] 00:00:00* Test Item Value Reference Range Interpretation Comme nts CHOLESTEROL (test code = 2210) 216 MG/DL TRIGLYCERIDES (test code = 2232) 292 MG/DL HDL CHOLESTEROL (test code = 2220) 56 MG/DL CALC LDL CHOL (test code = 2237) 115 MG/DL RISK RATIO LDL/HDL (test cod e = 2238) 2.05 RATIO Dwayne MyersCOMPREHENSIVE METABOLIC [id number] 00:00:00* Test Item Value Reference Range Interpretation Comme nts GLUCOSE (test code = 2217) 98 MG/DL BUN (test code = 2208) 9 MG/DL CREATININE (test code = 2214) 0.97 MG/DL eGFR (2020 CKD-EPI) (test co de = 56627) 70 ML/MIN/1.73 CALC BUN/CREAT (test code = [...] code = 2219) 21 U/L Dwayne MyersHEMOGLOBIN [id number] 00:00:00* Test Item Value Reference Range Interpretation Comme nts HEMOGLOBIN A1c (test code = 60935) 6.0 % Dwayne MyersLIPID [id number] 00:00:00* Test Item Value Reference Range Interpretation Comme nts CHOLESTEROL (test code = 2210) 216 MG/DL TRIGLYCERIDES (test code = 2232) 292 MG/DL HDL CHOLESTEROL (test code = 2220) 56 MG/DL CALC LDL CHOL (test code = 2237) 115 MG/DL RISK RATIO LDL/HDL (test cod e = 2238) 2.05 RATIO Dwayne MyersCOMPREHENSIVE METABOLIC [id number] 00:00:00* Test Item Value Reference Range Interpretation Comme nts GLUCOSE (test code = 2217) 98 MG/DL BUN (test code = 2208) 9 MG/DL CREATININE (test code = 2214) 0.97 MG/DL eGFR (2020 CKD-EPI) (test co de = 43949) 70 ML/MIN/1.73 CALC BUN/CREAT (test code = [...] code = 2219) 21 U/L Dwayne MyersHEMOGLOBIN [id number] 00:00:00* Test Item Value Reference Range Interpretation Comme nts HEMOGLOBIN A1c (test code = 61581) 6.0 % Dwayne MyersLIPID [id number] 00:00:00* Test Item Value Reference Range Interpretation Comme nts CHOLESTEROL (test code = 2210) 216 MG/DL TRIGLYCERIDES (test code = 2232) 292 MG/DL HDL CHOLESTEROL (test code = 2220) 56 MG/DL CALC LDL CHOL (test code = 2237) 115 MG/DL RISK RATIO LDL/HDL (test cod e = 2238) 2.05 RATIO Dwayne MyersCOMPREHENSIVE METABOLIC [id number] 00:00:00* Test Item Value Reference Range Interpretation Comme nts GLUCOSE (test code = 2217) 98 MG/DL BUN (test code = 2208) 9 MG/DL CREATININE (test code = 2214) 0.97 MG/DL eGFR (2020 CKD-EPI) (test co de = 69833) 70 ML/MIN/1.73 CALC BUN/CREAT (test code = [...] code = 2219) 21 U/L Dwayne MyersHEMOGLOBIN [id number] 00:00:00* Test Item Value Reference Range Interpretation Comme nts HEMOGLOBIN A1c (test code = 13256) 6.0 % Dwayne MyersLIPID [id number] 00:00:00* Test Item Value Reference Range Interpretation Comme nts CHOLESTEROL (test code = 2210) 216 MG/DL TRIGLYCERIDES (test code = 2232) 292 MG/DL HDL CHOLESTEROL (test code = 2220) 56 MG/DL CALC LDL CHOL (test code = 2237) 115 MG/DL RISK RATIO LDL/HDL (test cod e = 2238) 2.05 RATIO Dwayne MyersCOMPREHENSIVE METABOLIC [id number] 00:00:00* Test Item Value Reference Range Interpretation Comme nts GLUCOSE (test code = 2217) 98 MG/DL BUN (test code = 2208) 9 MG/DL CREATININE (test code = 2214) 0.97 MG/DL eGFR (2020 CKD-EPI) (test co de = 73839) 70 ML/MIN/1.73 CALC BUN/CREAT (test code = [...] code = 2219) 21 U/L Dwayne MyersHEMOGLOBIN [id number] 00:00:00* Test Item Value Reference Range Interpretation Comme nts HEMOGLOBIN A1c (test code = 29441) 6.0 % Dwayne MyersLIPID [id number] 00:00:00* Test Item Value Reference Range Interpretation Comme nts CHOLESTEROL (test code = 2210) 216 MG/DL TRIGLYCERIDES (test code = 2232) 292 MG/DL HDL CHOLESTEROL (test code = 2220) 56 MG/DL CALC LDL CHOL (test code = 2237) 115 MG/DL RISK RATIO LDL/HDL (test cod e = 2238) 2.05 RATIO Dwayne MyersCOMPREHENSIVE METABOLIC [id number] 00:00:00* Test Item Value Reference Range Interpretation Comme nts GLUCOSE (test code = 2217) 98 MG/DL BUN (test code = 2208) 9 MG/DL CREATININE (test code = 2214) 0.97 MG/DL eGFR (2020 CKD-EPI) (test co de = 27457) 70 ML/MIN/1.73 CALC BUN/CREAT (test code = [...] code = 2219) 21 U/L Dwayne MyersHEMOGLOBIN [id number] 00:00:00* Test Item Value Reference Range Interpretation Comme nts HEMOGLOBIN A1c (test code = 24588) 6.0 % Dwayne Bah AustinLIPID [id number] 00:00:00* Test Item Value Reference Range Interpretation Comme nts CHOLESTEROL (test code = 2210) 216 MG/DL TRIGLYCERIDES (test code = 2232) 292 MG/DL HDL CHOLESTEROL (test code = 2220) 56 MG/DL CALC LDL CHOL (test code = 2237) 115 MG/DL RISK RATIO LDL/HDL (test cod e = 2238) 2.05 RATIO Dwayne MyersCOMPREHENSIVE METABOLIC [id number] 00:00:00* Test Item Value Reference Range Interpretation Comme nts GLUCOSE (test code = 2217) 98 MG/DL BUN (test code = 2208) 9 MG/DL CREATININE (test code = 2214) 0.97 MG/DL eGFR (2020 CKD-EPI) (test co de = 39020) 70 ML/MIN/1.73 CALC BUN/CREAT (test code = [...] code = 2219) 21 U/L Dwayne MyersHEMOGLOBIN [id number] 00:00:00* Test Item Value Reference Range Interpretation Comme nts HEMOGLOBIN A1c (test code = 70153) 6.0 % Dwayne MyersLIPID [id number] 00:00:00* Test Item Value Reference Range Interpretation Comme nts CHOLESTEROL (test code = 2210) 216 MG/DL TRIGLYCERIDES (test code = 2232) 292 MG/DL HDL CHOLESTEROL (test code = 2220) 56 MG/DL CALC LDL CHOL (test code = 2237) 115 MG/DL RISK RATIO LDL/HDL (test cod e = 2238) 2.05 RATIO Dwayne MyersCOMPREHENSIVE METABOLIC [id number] 00:00:00* Test Item Value Reference Range Interpretation Comme nts GLUCOSE (test code = 2217) 98 MG/DL BUN (test code = 2208) 9 MG/DL CREATININE (test code = 2214) 0.97 MG/DL eGFR (2020 CKD-EPI) (test co de = 49862) 70 ML/MIN/1.73 CALC BUN/CREAT (test code = [...] code = 2219) 21 U/L Dwayne MyersHEMOGLOBIN [id number] 00:00:00* Test Item Value Reference Range Interpretation Comme nts HEMOGLOBIN A1c (test code = 52377) 6.0 % Dwayne MyersLIPID [id number] 00:00:00* Test Item Value Reference Range Interpretation Comme nts CHOLESTEROL (test code = 2210) 216 MG/DL TRIGLYCERIDES (test code = 2232) 292 MG/DL HDL CHOLESTEROL (test code = 2220) 56 MG/DL CALC LDL CHOL (test code = 2237) 115 MG/DL RISK RATIO LDL/HDL (test cod e = 2238) 2.05 RATIO Dwayne Bah LouisCOMPREHENSIVE METABOLIC [id number] 00:00:00* Test Item Value Reference Range Interpretation Comme nts GLUCOSE (test code = 2217) 98 MG/DL BUN (test code = 2208) 9 MG/DL CREATININE (test code = 2214) 0.97 MG/DL eGFR (2020 CKD-EPI) (test co de = 40622) 70 ML/MIN/1.73 CALC BUN/CREAT (test code = [...] code = 2219) 21 U/L Dwayne MyersHEMOGLOBIN [id number] 00:00:00* Test Item Value Reference Range Interpretation Comme nts HEMOGLOBIN A1c (test code = 11398) 6.0 % Dwayne MyersLIPID [id number] 00:00:00* Test Item Value Reference Range Interpretation Comme nts CHOLESTEROL (test code = 2210) 216 MG/DL TRIGLYCERIDES (test code = 2232) 292 MG/DL HDL CHOLESTEROL (test code = 2220) 56 MG/DL CALC LDL CHOL (test code = 2237) 115 MG/DL RISK RATIO LDL/HDL (test cod e = 2238) 2.05 RATIO Dwayne MyersCOMPREHENSIVE METABOLIC [id number] 00:00:00* Test Item Value Reference Range Interpretation Comme nts GLUCOSE (test code = 2217) 98 MG/DL BUN (test code = 2208) 9 MG/DL CREATININE (test code = 2214) 0.97 MG/DL eGFR (2020 CKD-EPI) (test co de = 53623) 70 ML/MIN/1.73 CALC BUN/CREAT (test code = [...] code = 2219) 21 U/L Dwayne MyersHEMOGLOBIN [id number] 00:00:00* Test Item Value Reference Range Interpretation Comme vivek HEMOGLOBIN A1c (test code = 69353) 6.0 % Dwayne MyersLIPID [id number] 00:00:00* Test Item Value Reference Range Interpretation Comme nts CHOLESTEROL (test code = 2210) 216 MG/DL TRIGLYCERIDES (test code = 2232) 292 MG/DL HDL CHOLESTEROL (test code = 2220) 56 MG/DL CALC LDL CHOL (test code = 2237) 115 MG/DL RISK RATIO LDL/HDL (test cod e = 2238) 2.05 RATIO Dwayne MyersCOMPREHENSIVE METABOLIC [id number] 00:00:00* Test Item Value Reference Range Interpretation Comme nts GLUCOSE (test code = 2217) 98 MG/DL BUN (test code = 2208) 9 MG/DL CREATININE (test code = 2214) 0.97 MG/DL eGFR (2020 CKD-EPI) (test co de = 82557) 70 ML/MIN/1.73 CALC BUN/CREAT (test code = [...] = 2219) 21 U/L Dwayne Bah AustinHEMOGLOBIN [id number] 00:00:00* Test Item Value Reference Range Interpretation Comme nts HEMOGLOBIN A1c (test code = 63582) 6.0 % Dwayne Bah AustinLIPID [id number] 00:00:00* Test Item Value Reference Range Interpretation Comme nts CHOLESTEROL (test code = 2210) 216 MG/DL TRIGLYCERIDES (test code = 2232) 292 MG/DL HDL CHOLESTEROL (test code = 2220) 56 MG/DL CALC LDL CHOL (test code = 2237) 115 MG/DL RISK RATIO LDL/HDL (test cod e = 2238) 2.05 RATIO Dwayne MyersCOMPREHENSIVE METABOLIC [id number] 00:00:00* Test Item Value Reference Range Interpretation Comme nts GLUCOSE (test code = 2217) 98 MG/DL BUN (test code = 2208) 9 MG/DL CREATININE (test code = 2214) 0.97 MG/DL eGFR (2020 CKD-EPI) (test co de = 72844) 70 ML/MIN/1.73 CALC BUN/CREAT (test code = [...] code = 2219) 21 U/L Dwayne MyersHEMOGLOBIN [id number] 00:00:00* Test Item Value Reference Range Interpretation Comme nts HEMOGLOBIN A1c (test code = 40636) 6.0 % Dwayne Bah AustinLIPID [id number] 00:00:00* Test Item Value Reference Range Interpretation Comme nts CHOLESTEROL (test code = 2210) 216 MG/DL TRIGLYCERIDES (test code = 2232) 292 MG/DL HDL CHOLESTEROL (test code = 2220) 56 MG/DL CALC LDL CHOL (test code = 2237) 115 MG/DL RISK RATIO LDL/HDL (test cod e = 2238) 2.05 RATIO Dwayne MyersCOMPREHENSIVE METABOLIC [id number] 00:00:00* Test Item Value Reference Range Interpretation Comme nts GLUCOSE (test code = 2217) 98 MG/DL BUN (test code = 2208) 9 MG/DL CREATININE (test code = 2214) 0.97 MG/DL eGFR (2020 CKD-EPI) (test co de = 07517) 70 ML/MIN/1.73 CALC BUN/CREAT (test code = [...] code = 2219) 21 U/L Dwayne MyersHEMOGLOBIN [id number] 00:00:00* Test Item Value Reference Range Interpretation Comme nts HEMOGLOBIN A1c (test code = 76134) 6.0 % Dwayne MyersLIPID [id number] 00:00:00* Test Item Value Reference Range Interpretation Comme nts CHOLESTEROL (test code = 2210) 216 MG/DL TRIGLYCERIDES (test code = 2232) 292 MG/DL HDL CHOLESTEROL (test code = 2220) 56 MG/DL CALC LDL CHOL (test code = 2237) 115 MG/DL RISK RATIO LDL/HDL (test cod e = 2238) 2.05 RATIO Dwayne MyersCOMPREHENSIVE METABOLIC [id number] 00:00:00* Test Item Value Reference Range Interpretation Comme nts GLUCOSE (test code = 2217) 98 MG/DL BUN (test code = 2208) 9 MG/DL CREATININE (test code = 2214) 0.97 MG/DL eGFR (2020 CKD-EPI) (test co de = 11131) 70 ML/MIN/1.73 CALC BUN/CREAT (test code = [...] code = 2219) 21 U/L Dwayne MyersHEMOGLOBIN [id number] 00:00:00* Test Item Value Reference Range Interpretation Comme nts HEMOGLOBIN A1c (test code = 56882) 6.0 % Dwayne MyersLIPID [id number] 00:00:00* Test Item Value Reference Range Interpretation Comme nts CHOLESTEROL (test code = 2210) 216 MG/DL TRIGLYCERIDES (test code = 2232) 292 MG/DL HDL CHOLESTEROL (test code = 2220) 56 MG/DL CALC LDL CHOL (test code = 2237) 115 MG/DL RISK RATIO LDL/HDL (test cod e = 2238) 2.05 RATIO Dwayne MyersCOMPREHENSIVE METABOLIC [id number] 00:00:00* Test Item Value Reference Range Interpretation Comme nts GLUCOSE (test code = 2217) 98 MG/DL BUN (test code = 2208) 9 MG/DL CREATININE (test code = 2214) 0.97 MG/DL eGFR (2020 CKD-EPI) (test co de = 16997) 70 ML/MIN/1.73 CALC BUN/CREAT (test code = [...] code = 2219) 21 U/L Dwayne MyersHEMOGLOBIN [id number] 00:00:00* Test Item Value Reference Range Interpretation Comme nts HEMOGLOBIN A1c (test code = 83496) 6.0 % Dwayne MyersLIPID [id number] 00:00:00* Test Item Value Reference Range Interpretation Comme nts CHOLESTEROL (test code = 2210) 216 MG/DL TRIGLYCERIDES (test code = 2232) 292 MG/DL HDL CHOLESTEROL (test code = 2220) 56 MG/DL CALC LDL CHOL (test code = 2237) 115 MG/DL RISK RATIO LDL/HDL (test cod e = 2238) 2.05 RATIO Dwayne Bah LouisCOMPREHENSIVE METABOLIC [id number] 00:00:00* Test Item Value Reference Range Interpretation Comme nts GLUCOSE (test code = 2217) 98 MG/DL BUN (test code = 2208) 9 MG/DL CREATININE (test code = 2214) 0.97 MG/DL eGFR (2020 CKD-EPI) (test co de = 11737) 70 ML/MIN/1.73 CALC BUN/CREAT (test code = [...] code = 2219) 21 U/L Dwayne MyersHEMOGLOBIN [id number] 00:00:00* Test Item Value Reference Range Interpretation Comme nts HEMOGLOBIN A1c (test code = 13754) 6.0 % Dwayne MyersLIPID [id number] 00:00:00* Test Item Value Reference Range Interpretation Comme nts CHOLESTEROL (test code = 2210) 216 MG/DL TRIGLYCERIDES (test code = 2232) 292 MG/DL HDL CHOLESTEROL (test code = 2220) 56 MG/DL CALC LDL CHOL (test code = 2237) 115 MG/DL RISK RATIO LDL/HDL (test cod e = 2238) 2.05 RATIO Dwayne MyersCOMPREHENSIVE METABOLIC [id number] 00:00:00* Test Item Value Reference Range Interpretation Comme nts GLUCOSE (test code = 2217) 98 MG/DL BUN (test code = 2208) 9 MG/DL CREATININE (test code = 2214) 0.97 MG/DL eGFR (2020 CKD-EPI) (test co de = 56971) 70 ML/MIN/1.73 CALC BUN/CREAT (test code = [...] = 2219) 21 U/L Dwayne Bah [place]HEMOGLOBIN [id number] 00:00:00* Test Item Value Reference Range Interpretation Comme nts HEMOGLOBIN A1c (test code = 76671) 6.0 % Dwayne Bah AustinLIPID [id number] 00:00:00* Test Item Value Reference Range Interpretation Comme nts CHOLESTEROL (test code = 2210) 216 MG/DL TRIGLYCERIDES (test code = 2232) 292 MG/DL HDL CHOLESTEROL (test code = 2220) 56 MG/DL CALC LDL CHOL (test code = 2237) 115 MG/DL RISK RATIO LDL/HDL (test cod e = 2238) 2.05 RATIO Dwayne MyersCOMPREHENSIVE METABOLIC [id number] 00:00:00* Test Item Value Reference Range Interpretation Comme nts GLUCOSE (test code = 2217) 98 MG/DL BUN (test code = 2208) 9 MG/DL CREATININE (test code = 2214) 0.97 MG/DL eGFR (2020 CKD-EPI) (test co de = 59145) 70 ML/MIN/1.73 CALC BUN/CREAT (test code = [...] = 2219) 21 U/L Dwayne Bah AustinHEMOGLOBIN [id number] 00:00:00* Test Item Value Reference Range Interpretation Comme nts HEMOGLOBIN A1c (test code = 30027) 6.0 % Dwayne MyersLIPID [id number] 00:00:00* Test Item Value Reference Range Interpretation Comme nts CHOLESTEROL (test code = 2210) 216 MG/DL TRIGLYCERIDES (test code = 2232) 292 MG/DL HDL CHOLESTEROL (test code = 2220) 56 MG/DL CALC LDL CHOL (test code = 2237) 115 MG/DL RISK RATIO LDL/HDL (test cod e = 2238) 2.05 RATIO Dwayne MyersCOMPREHENSIVE METABOLIC [id number] 00:00:00* Test Item Value Reference Range Interpretation Comme nts GLUCOSE (test code = 2217) 98 MG/DL BUN (test code = 2208) 9 MG/DL CREATININE (test code = 2214) 0.97 MG/DL eGFR (2020 CKD-EPI) (test co de = 25297) 70 ML/MIN/1.73 CALC BUN/CREAT (test code = [...] code = 2219) 21 U/L Dwayne MyersHEMOGLOBIN [id number] 00:00:00* Test Item Value Reference Range Interpretation Comme nts HEMOGLOBIN A1c (test code = 36562) 6.0 % Dwayne Bah AustinLIPID [id number] 00:00:00* Test Item Value Reference Range Interpretation Comme nts CHOLESTEROL (test code = 2210) 216 MG/DL TRIGLYCERIDES (test code = 2232) 292 MG/DL HDL CHOLESTEROL (test code = 2220) 56 MG/DL CALC LDL CHOL (test code = 2237) 115 MG/DL RISK RATIO LDL/HDL (test cod e = 2238) 2.05 RATIO Dwayne MyersXR KNEE 3 VW [id number] 04:27:07EXAM:XR KNEE 3 VW RIGHT, XR ANKLE [...] Dystrophic calcifications along the superiorpatellar tendon are suggested.[facility] VW [id number] 04:27:07EXAM:XR KNEE 3 VW RIGHT, XR ANKLE [...] Dystrophic calcifications along the superiorpatellar tendon are suggested.[facility] 3+ VW [id number] 04:27:07EXAM:XR KNEE 3 VW RIGHT, XR ANKLE [...] Dystrophic calcifications along the superiorpatellar tendon are suggested.[facility] FEMUR 2 VW [id number] 04:27:07EXAM:XR KNEE 3 VW RIGHT, XR ANKLE [...] Dystrophic calcifications along the superiorpatellar tendon are suggested.[facility] ALBUMIN/CREATININE RATIO, URINE, [id number] 04:41:49* Test Item Value Reference Range Interpretation Comme nts CREATININE, URINE, CONC. (test code = 207) 352.8 MG/DL NOT ESTAB ALBUMIN, URINE, RANDOM (test code = 38708) 2.5 MG/DL NOT ESTAB CALC ALBUMIN/CREAT, RND (test code = 44059) 7 MG/G <30 Note: Albumin/Cr eatinine ratio reference interval reflects ADA and NKF guidelines. UNLESS OTHERWISE INDICATED, ALL TESTING PERFORMED AT [facility] [address] [place] [address] HUMAN PERFORMANCE TECHNOLOGIST: BO MILLER M.D. CLIA NUMBER [id number] [place]. [id number] ALBUMIN/CREATININE RATIO, RANDOM [id number] 00:00:00* Test Item Value Reference Range Interpretation Comme nts CREATININE, URINE, CONC. (te st code = 207) 352.8 MG/DL ALBUMIN, URINE, RANDOM (test code = 51802) 2.5 MG/DL CALC ALBUMIN/CREAT, RND (ector t code = 22381) 7 MG/G Dwayne Niurka AustinALBUMIN/CREATININE RATIO, RANDOM [id number] 00:00:00* Test Item Value Reference Range Interpretation Comme nts CREATININE, URINE, CONC. (te st code = 2071) 352.8 MG/DL ALBUMIN, URINE, RANDOM (test code = 39767) 2.5 MG/DL CALC ALBUMIN/CREAT, RND (ector t code = 71082) 7 MG/G Dwayne F AustinALBUMIN/CREATININE RATIO, RANDOM [id number] 00:00:00* Test Item Value Reference Range Interpretation Comme nts CREATININE, URINE, CONC. (te st code = 2071) 352.8 MG/DL ALBUMIN, URINE, RANDOM (test code = 91150) 2.5 MG/DL CALC ALBUMIN/CREAT, RND (ector t code = 83824) 7 MG/G Dwayne F AustinALBUMIN/CREATININE RATIO, RANDOM [id number] 00:00:00* Test Item Value Reference Range Interpretation Comme nts CREATININE, URINE, CONC. (te st code = 2071) 352.8 MG/DL ALBUMIN, URINE, RANDOM (test code = 68540) 2.5 MG/DL CALC ALBUMIN/CREAT, RND (ector t code = 14698) 7 MG/G Dwayne F AustinALBUMIN/CREATININE RATIO, RANDOM [id number] 00:00:00* Test Item Value Reference Range Interpretation Comme nts CREATININE, URINE, CONC. (te st code = 2071) 352.8 MG/DL ALBUMIN, URINE, RANDOM (test code = 01977) 2.5 MG/DL CALC ALBUMIN/CREAT, RND (ector t code = 91906) 7 MG/G Dwayne F AustinALBUMIN/CREATININE RATIO, RANDOM [id number] 00:00:00* Test Item Value Reference Range Interpretation Comme nts CREATININE, URINE, CONC. (te st code = 2071) 352.8 MG/DL ALBUMIN, URINE, RANDOM (test code = 28225) 2.5 MG/DL CALC ALBUMIN/CREAT, RND (ector t code = 88047) 7 MG/G Dwayne F AustinALBUMIN/CREATININE RATIO, RANDOM [id number] 00:00:00* Test Item Value Reference Range Interpretation Comme nts CREATININE, URINE, CONC. (te st code = 2071) 352.8 MG/DL ALBUMIN, URINE, RANDOM (test code = 56638) 2.5 MG/DL CALC ALBUMIN/CREAT, RND (ector t code = 16760) 7 MG/G Dwayne F AustinALBUMIN/CREATININE RATIO, RANDOM [id number] 00:00:00* Test Item Value Reference Range Interpretation Comme nts CREATININE, URINE, CONC. (te st code = 2071) 352.8 MG/DL ALBUMIN, URINE, RANDOM (test code = 81989) 2.5 MG/DL CALC ALBUMIN/CREAT, RND (ector t code = 85010) 7 MG/G Dwayne F AustinALBUMIN/CREATININE RATIO, RANDOM [id number] 00:00:00* Test Item Value Reference Range Interpretation Comme nts CREATININE, URINE, CONC. (te st code = 2071) 352.8 MG/DL ALBUMIN, URINE, RANDOM (test code = 34483) 2.5 MG/DL CALC ALBUMIN/CREAT, RND (ector t code = 60546) 7 MG/G Dwayne F AustinALBUMIN/CREATININE RATIO, RANDOM [id number] 00:00:00* Test Item Value Reference Range Interpretation Comme nts CREATININE, URINE, CONC. (te st code = 2071) 352.8 MG/DL ALBUMIN, URINE, RANDOM (test code = 72306) 2.5 MG/DL CALC ALBUMIN/CREAT, RND (ector t code = 76077) 7 MG/G Dwayne F AustinALBUMIN/CREATININE RATIO, RANDOM [id number] 00:00:00* Test Item Value Reference Range Interpretation Comme nts CREATININE, URINE, CONC. (te st code = 2071) 352.8 MG/DL ALBUMIN, URINE, RANDOM (test code = 74701) 2.5 MG/DL CALC ALBUMIN/CREAT, RND (ector t code = 66434) 7 MG/G Dwayne F AustinALBUMIN/CREATININE RATIO, RANDOM [id number] 00:00:00* Test Item Value Reference Range Interpretation Comme nts CREATININE, URINE, CONC. (te st code = 2071) 352.8 MG/DL ALBUMIN, URINE, RANDOM (test code = 73987) 2.5 MG/DL CALC ALBUMIN/CREAT, RND (ector t code = 82607) 7 MG/G Dwayne F AustinALBUMIN/CREATININE RATIO, RANDOM [id number] 00:00:00* Test Item Value Reference Range Interpretation Comme nts CREATININE, URINE, CONC. (te st code = 2071) 352.8 MG/DL ALBUMIN, URINE, RANDOM (test code = 75530) 2.5 MG/DL CALC ALBUMIN/CREAT, RND (ector t code = 33581) 7 MG/G Dwayne F AustinALBUMIN/CREATININE RATIO, RANDOM [id number] 00:00:00* Test Item Value Reference Range Interpretation Comme nts CREATININE, URINE, CONC. (te st code = 2071) 352.8 MG/DL ALBUMIN, URINE, RANDOM (test code = 16248) 2.5 MG/DL CALC ALBUMIN/CREAT, RND (ector t code = 16380) 7 MG/G Dwayne F AustinALBUMIN/CREATININE RATIO, RANDOM [id number] 00:00:00* Test Item Value Reference Range Interpretation Comme nts CREATININE, URINE, CONC. (te st code = 2071) 352.8 MG/DL ALBUMIN, URINE, RANDOM (test code = 22582) 2.5 MG/DL CALC ALBUMIN/CREAT, RND (ector t code = 00392) 7 MG/G Dwayne F AustinALBUMIN/CREATININE RATIO, RANDOM [id number] 00:00:00* Test Item Value Reference Range Interpretation Comme nts CREATININE, URINE, CONC. (te st code = 2071) 352.8 MG/DL ALBUMIN, URINE, RANDOM (test code = 78414) 2.5 MG/DL CALC ALBUMIN/CREAT, RND (ector t code = 78257) 7 MG/G Dwayne F AustinALBUMIN/CREATININE RATIO, RANDOM [id number] 00:00:00* Test Item Value Reference Range Interpretation Comme nts CREATININE, URINE, CONC. (te st code = 2071) 352.8 MG/DL ALBUMIN, URINE, RANDOM (test code = 65156) 2.5 MG/DL CALC ALBUMIN/CREAT, RND (ector t code = 28119) 7 MG/G Dwayne F AustinALBUMIN/CREATININE RATIO, RANDOM [id number] 00:00:00* Test Item Value Reference Range Interpretation Comme nts CREATININE, URINE, CONC. (te st code = 2071) 352.8 MG/DL ALBUMIN, URINE, RANDOM (test code = 82502) 2.5 MG/DL CALC ALBUMIN/CREAT, RND (ector t code = 11107) 7 MG/G Dwayne F AustinALBUMIN/CREATININE RATIO, RANDOM [id number] 00:00:00* Test Item Value Reference Range Interpretation Comme nts CREATININE, URINE, CONC. (te st code = 2071) 352.8 MG/DL ALBUMIN, URINE, RANDOM (test code = 15889) 2.5 MG/DL CALC ALBUMIN/CREAT, RND (ector t code = 26498) 7 MG/G Dwayne F AustinALBUMIN/CREATININE RATIO, RANDOM [id number] 00:00:00* Test Item Value Reference Range Interpretation Comme nts CREATININE, URINE, CONC. (te st code = 2071) 352.8 MG/DL ALBUMIN, URINE, RANDOM (test code = 59558) 2.5 MG/DL CALC ALBUMIN/CREAT, RND (ector t code = 20195) 7 MG/G Dwayne F AustinALBUMIN/CREATININE RATIO, RANDOM [id number] 00:00:00* Test Item Value Reference Range Interpretation Comme nts CREATININE, URINE, CONC. (te st code = 2071) 352.8 MG/DL ALBUMIN, URINE, RANDOM (test code = 34133) 2.5 MG/DL CALC ALBUMIN/CREAT, RND (ector t code = 72206) 7 MG/G Dwayne Bah AustinALBUMIN/CREATININE RATIO, RANDOM [id number] 00:00:00* Test Item Value Reference Range Interpretation Comme nts CREATININE, URINE, CONC. (te st code = 2071) 352.8 MG/DL ALBUMIN, URINE, RANDOM (test code = 92648) 2.5 MG/DL CALC ALBUMIN/CREAT, RND (ector t code = 93040) 7 MG/G Dwayne MyersCT HEAD W/O CONTRAST *WW*2023-06-03 23:07:26 [facility] 1970 Sex: FEXAMINATION:CTHEAD [...] MD 06/03/2023 11:07 PM CDT , THIRD [id number] 06:05:55* Test Item Value Reference Range Interpretation Comme nts TSH, THIRD GENERATION (test code = 2821) 1.820 UIU/ML 0.400-4.100 UNLESS OTHERWISE INDICATED, ALL TESTING PERFORMED AT [facility] [address] [place] [address] HUMAN PERFORMANCE TECHNOLOGIST: BO MILLER M.D. CLIA NUMBER [id number] [facility] [place]. [id number] TSH, THIRD [id number] 00:00:00* Test Item Value Reference Range Interpretation Comme nts TSH, THIRD GENERATION (test code = 2821) 1.820 UIU/ML Dwayne AndresH, THIRD [id number] 00:00:00* Test Item Value Reference Range Interpretation Comme nts TSH, THIRD GENERATION (test code = 2821) 1.820 UIU/ML Dwayne AndresH, THIRD [id number] 00:00:00* Test Item Value Reference Range Interpretation Comme nts TSH, THIRD GENERATION (test code = 2821) 1.820 UIU/ML Dwayne Patel, THIRD [id number] 00:00:00* Test Item Value Reference Range Interpretation Comme nts TSH, THIRD GENERATION (test code = 2821) 1.820 UIU/ML Dwayne Patel, THIRD [id number] 00:00:00* Test Item Value Reference Range Interpretation Comme nts TSH, THIRD GENERATION (test code = 2821) 1.820 UIU/ML Dwayne Patel, THIRD [id number] 00:00:00* Test Item Value Reference Range Interpretation Comme nts TSH, THIRD GENERATION (test code = 2821) 1.820 UIU/ML Dwayne Patel, THIRD [id number] 00:00:00* Test Item Value Reference Range Interpretation Comme nts TSH, THIRD GENERATION (test code = 2821) 1.820 UIU/ML Dwayne Patel, THIRD [id number] 00:00:00* Test Item Value Reference Range Interpretation Comme nts TSH, THIRD GENERATION (test code = 2821) 1.820 UIU/ML Dwayne Patel, THIRD [id number] 00:00:00* Test Item Value Reference Range Interpretation Comme nts TSH, THIRD GENERATION (test code = 2821) 1.820 UIU/ML Dwayne Patel, THIRD [id number] 00:00:00* Test Item Value Reference Range Interpretation Comme nts TSH, THIRD GENERATION (test code = 2821) 1.820 UIU/ML Dwayne Patel, THIRD [id number] 00:00:00* Test Item Value Reference Range Interpretation Comme nts TSH, THIRD GENERATION (test code = 2821) 1.820 UIU/ML Dwayne Patel, THIRD [id number] 00:00:00* Test Item Value Reference Range Interpretation Comme nts TSH, THIRD GENERATION (test code = 2821) 1.820 UIU/ML Dwayne Patel, THIRD [id number] 00:00:00* Test Item Value Reference Range Interpretation Comme nts TSH, THIRD GENERATION (test code = 2821) 1.820 UIU/ML Dwayne Patel THIRD [id number] 00:00:00* Test Item Value Reference Range Interpretation Comme nts TSH, THIRD GENERATION (test code = 2821) 1.820 UIU/ML Dwayne Patel, THIRD [id number] 00:00:00* Test Item Value Reference Range Interpretation Comme nts TSH, THIRD GENERATION (test code = 2821) 1.820 UIU/ML Dwayne Patel THIRD [id number] 00:00:00* Test Item Value Reference Range Interpretation Comme nts TSH, THIRD GENERATION (test code = 2821) 1.820 UIU/ML Dwayne Patel, THIRD [id number] 00:00:00* Test Item Value Reference Range Interpretation Comme nts TSH, THIRD GENERATION (test code = 2821) 1.820 UIU/ML Dwayne Patel, THIRD [id number] 00:00:00* Test Item Value Reference Range Interpretation Comme nts TSH, THIRD GENERATION (test code = 2821) 1.820 UIU/ML Dwayne Patel, THIRD [id number] 00:00:00* Test Item Value Reference Range Interpretation Comme nts TSH, THIRD GENERATION (test code = 2821) 1.820 UIU/ML Dwayne Patel, THIRD [id number] 00:00:00* Test Item Value Reference Range Interpretation Comme nts TSH, THIRD GENERATION (test code = 2821) 1.820 UIU/ML Dwayne Patel THIRD [id number] 00:00:00* Test Item Value Reference Range Interpretation Comme nts TSH, THIRD GENERATION (test code = 2821) 1.820 UIU/ML Dwayne Patel, THIRD [id number] 00:00:00* Test Item Value Reference Range Interpretation Comme nts TSH, THIRD GENERATION (test code = 2821) 1.820 UIU/ML Dwayne MauricioPATITIS PANEL, ACUTE [ADDED]2023-04-27 00:00:00* Test Item Value Reference Range Interpretation Comme nts HEPATITIS A IgM (test code = 79922) NON-REACTIVE HEPATITIS B CORE IgM (test c ode = 4644) NON-REACTIVE HEPATITIS B SURF AG (test co de = 2739) NON-REACTIVE HEPATITIS C ANTIBODY (test c ode = 4675) NON-REACTIVE INTERPRETATION HEPATITIS A: (test code = 2552) (NOTE) INTERPRETATION HEPATITIS B: (test code = 87473) (NOTE) INTERPRETATION HEPATITIS C: (test code = 19153) (NOTE) Dwayne MyersHEMOGLOBIN A1c [ADDED]2023-04-27 00:00:00* Test Item Value Reference Range Interpretation Comme nts HEMOGLOBIN A1c (test code = 25144) 6.3 % Dwayne Bah AustinCT/NG, NAAT, URINE [ADDED]2023-04-27 00:00:00* Test Item Value Reference Range Interpretation Comme nts CHLAMYDIA, NAAT, URINE (test code = 73387) NEGATIVE GONORRHEA, NAAT, URINE (test code = 36154) NEGATIVE Dwayne MyersHIV 1/2 4TH GEN, RFLX CONF [ADDED]2023-04-27 00:00:00* Test Item Value Reference Range Interpretation Comme nts HIV 1/2 4TH GEN, RFLX CONF ( test code = 3514) NON-REACTIVE Dwayne MyersHEPATITIS PANEL, ACUTE [ADDED]2023-04-27 00:00:00* Test Item Value Reference Range Interpretation Comme nts HEPATITIS A IgM (test code = 50771) NON-REACTIVE HEPATITIS B CORE IgM (test c ode = 4644) NON-REACTIVE HEPATITIS B SURF AG (test co de = 2739) NON-REACTIVE HEPATITIS C ANTIBODY (test c ode = 4675) NON-REACTIVE INTERPRETATION HEPATITIS A: (test code = 2552) (NOTE) INTERPRETATION HEPATITIS B: (test code = 41478) (NOTE) INTERPRETATION HEPATITIS C: (test code = 91615) (NOTE) Dwayne Bah AustinHEMOGLOBIN A1c [ADDED]2023-04-27 00:00:00* Test Item Value Reference Range Interpretation Comme nts HEMOGLOBIN A1c (test code = 96081) 6.3 % Dwayne Bah AustinCT/NG, NAAT, URINE [ADDED]2023-04-27 00:00:00* Test Item Value Reference Range Interpretation Comme nts CHLAMYDIA, NAAT, URINE (test code = 00069) NEGATIVE GONORRHEA, NAAT, URINE (test code = 47513) NEGATIVE Dwayne Bah AustinHIV 1/2 4TH GEN, RFLX CONF [ADDED]2023-04-27 00:00:00* Test Item Value Reference Range Interpretation Comme nts HIV 1/2 4TH GEN, RFLX CONF ( test code = 3514) NON-REACTIVE Dwayne MyersHEPATITIS PANEL, ACUTE [ADDED]2023-04-27 00:00:00* Test Item Value Reference Range Interpretation Comme nts HEPATITIS A IgM (test code = 37508) NON-REACTIVE HEPATITIS B CORE IgM (test c ode = 4644) NON-REACTIVE HEPATITIS B SURF AG (test co de = 2739) NON-REACTIVE HEPATITIS C ANTIBODY (test c ode = 4675) NON-REACTIVE INTERPRETATION HEPATITIS A: (test code = 2552) (NOTE) INTERPRETATION HEPATITIS B: (test code = 66283) (NOTE) INTERPRETATION HEPATITIS C: (test code = 85941) (NOTE) Dwayne MyersHEMOGLOBIN A1c [ADDED]2023-04-27 00:00:00* Test Item Value Reference Range Interpretation Comme nts HEMOGLOBIN A1c (test code = 40247) 6.3 % Dwayne MyersCT/NG, NAAT, URINE [ADDED]2023-04-27 00:00:00* Test Item Value Reference Range Interpretation Comme nts CHLAMYDIA, NAAT, URINE (test code = 56875) NEGATIVE GONORRHEA, NAAT, URINE (test code = 32680) NEGATIVE Dwayne Bah AustinHIV 1/2 4TH GEN, RFLX CONF [ADDED]2023-04-27 00:00:00* Test Item Value Reference Range Interpretation Comme nts HIV 1/2 4TH GEN, RFLX CONF ( test code = 3514) NON-REACTIVE Dwayne MyersHEPATITIS PANEL, ACUTE [ADDED]2023-04-27 00:00:00* Test Item Value Reference Range Interpretation Comme nts HEPATITIS A IgM (test code = 34925) NON-REACTIVE HEPATITIS B CORE IgM (test c ode = 4644) NON-REACTIVE HEPATITIS B SURF AG (test co de = 2739) NON-REACTIVE HEPATITIS C ANTIBODY (test c ode = 4675) NON-REACTIVE INTERPRETATION HEPATITIS A: (test code = 2552) (NOTE) INTERPRETATION HEPATITIS B: (test code = 04846) (NOTE) INTERPRETATION HEPATITIS C: (test code = 73684) (NOTE) Dwayne MyersHEMOGLOBIN A1c [ADDED]2023-04-27 00:00:00* Test Item Value Reference Range Interpretation Comme nts HEMOGLOBIN A1c (test code = 45843) 6.3 % Dwayne Bah AustinCT/NG, NAAT, URINE [ADDED]2023-04-27 00:00:00* Test Item Value Reference Range Interpretation Comme nts CHLAMYDIA, NAAT, URINE (test code = 77756) NEGATIVE GONORRHEA, NAAT, URINE (test code = 40388) NEGATIVE Dwayne Bah AustinHIV 1/2 4TH GEN, RFLX CONF [ADDED]2023-04-27 00:00:00* Test Item Value Reference Range Interpretation Comme nts HIV 1/2 4TH GEN, RFLX CONF ( test code = 3514) NON-REACTIVE Dwayne MyersHEPATITIS PANEL, ACUTE [ADDED]2023-04-27 00:00:00* Test Item Value Reference Range Interpretation Comme nts HEPATITIS A IgM (test code = 34311) NON-REACTIVE HEPATITIS B CORE IgM (test c ode = 4644) NON-REACTIVE HEPATITIS B SURF AG (test co de = 2739) NON-REACTIVE HEPATITIS C ANTIBODY (test c ode = 4675) NON-REACTIVE INTERPRETATION HEPATITIS A: (test code = 2552) (NOTE) INTERPRETATION HEPATITIS B: (test code = 36763) (NOTE) INTERPRETATION HEPATITIS C: (test code = 07955) (NOTE) Dwayne MyersHEMOGLOBIN A1c [ADDED]2023-04-27 00:00:00* Test Item Value Reference Range Interpretation Comme nts HEMOGLOBIN A1c (test code = 22134) 6.3 % Dwayne Bah AustinCT/NG, NAAT, URINE [ADDED]2023-04-27 00:00:00* Test Item Value Reference Range Interpretation Comme nts CHLAMYDIA, NAAT, URINE (test code = 36603) NEGATIVE GONORRHEA, NAAT, URINE (test code = 88027) NEGATIVE Dwayne Bah AustinHIV 1/2 4TH GEN, RFLX CONF [ADDED]2023-04-27 00:00:00* Test Item Value Reference Range Interpretation Comme nts HIV 1/2 4TH GEN, RFLX CONF ( test code = 3514) NON-REACTIVE Dwayne Bah AustinHEPATITIS PANEL, ACUTE [ADDED]2023-04-27 00:00:00* Test Item Value Reference Range Interpretation Comme nts HEPATITIS A IgM (test code = 21662) NON-REACTIVE HEPATITIS B CORE IgM (test c ode = 4644) NON-REACTIVE HEPATITIS B SURF AG (test co de = 2739) NON-REACTIVE HEPATITIS C ANTIBODY (test c ode = 4675) NON-REACTIVE INTERPRETATION HEPATITIS A: (test code = 2552) (NOTE) INTERPRETATION HEPATITIS B: (test code = 82738) (NOTE) INTERPRETATION HEPATITIS C: (test code = 43859) (NOTE) Dwayne Bah AustinHEMOGLOBIN A1c [ADDED]2023-04-27 00:00:00* Test Item Value Reference Range Interpretation Comme nts HEMOGLOBIN A1c (test code = 60783) 6.3 % Dwayne Bah AustinCT/NG, NAAT, URINE [ADDED]2023-04-27 00:00:00* Test Item Value Reference Range Interpretation Comme nts CHLAMYDIA, NAAT, URINE (test code = 98564) NEGATIVE GONORRHEA, NAAT, URINE (test code = 44035) NEGATIVE Dwayne MyersHIV 1/2 4TH GEN, RFLX CONF [ADDED]2023-04-27 00:00:00* Test Item Value Reference Range Interpretation Comme nts HIV 1/2 4TH GEN, RFLX CONF ( test code = 3514) NON-REACTIVE Dwayne MyersHEPATITIS PANEL, ACUTE [ADDED]2023-04-27 00:00:00* Test Item Value Reference Range Interpretation Comme nts HEPATITIS A IgM (test code = 50065) NON-REACTIVE HEPATITIS B CORE IgM (test c ode = 4644) NON-REACTIVE HEPATITIS B SURF AG (test co de = 2739) NON-REACTIVE HEPATITIS C ANTIBODY (test c ode = 4675) NON-REACTIVE INTERPRETATION HEPATITIS A: (test code = 2552) (NOTE) INTERPRETATION HEPATITIS B: (test code = 26343) (NOTE) INTERPRETATION HEPATITIS C: (test code = 85084) (NOTE) Dwayne Bah AustinHEMOGLOBIN A1c [ADDED]2023-04-27 00:00:00* Test Item Value Reference Range Interpretation Comme nts HEMOGLOBIN A1c (test code = 72668) 6.3 % Dwayne Bah AustinCT/NG, NAAT, URINE [ADDED]2023-04-27 00:00:00* Test Item Value Reference Range Interpretation Comme nts CHLAMYDIA, NAAT, URINE (test code = 38053) NEGATIVE GONORRHEA, NAAT, URINE (test code = 90543) NEGATIVE Dwayne Bah AustinHIV 1/2 4TH GEN, RFLX CONF [ADDED]2023-04-27 00:00:00* Test Item Value Reference Range Interpretation Comme nts HIV 1/2 4TH GEN, RFLX CONF ( test code = 3514) NON-REACTIVE Dwayne Bah AustinHEPATITIS PANEL, ACUTE [ADDED]2023-04-27 00:00:00* Test Item Value Reference Range Interpretation Comme nts HEPATITIS A IgM (test code = 95930) NON-REACTIVE HEPATITIS B CORE IgM (test c ode = 4644) NON-REACTIVE HEPATITIS B SURF AG (test co de = 2739) NON-REACTIVE HEPATITIS C ANTIBODY (test c ode = 4675) NON-REACTIVE INTERPRETATION HEPATITIS A: (test code = 2552) (NOTE) INTERPRETATION HEPATITIS B: (test code = 79729) (NOTE) INTERPRETATION HEPATITIS C: (test code = 87806) (NOTE) Dwayne Bah AustinHEMOGLOBIN A1c [ADDED]2023-04-27 00:00:00* Test Item Value Reference Range Interpretation Comme nts HEMOGLOBIN A1c (test code = 05587) 6.3 % Dwayne Bah AustinCT/NG, NAAT, URINE [ADDED]2023-04-27 00:00:00* Test Item Value Reference Range Interpretation Comme nts CHLAMYDIA, NAAT, URINE (test code = 28009) NEGATIVE GONORRHEA, NAAT, URINE (test code = 24943) NEGATIVE Dwayne Bah AustinHIV 1/2 4TH GEN, RFLX CONF [ADDED]2023-04-27 00:00:00* Test Item Value Reference Range Interpretation Comme nts HIV 1/2 4TH GEN, RFLX CONF ( test code = 3514) NON-REACTIVE Dwayne MyersHEPATITIS PANEL, ACUTE [ADDED]2023-04-27 00:00:00* Test Item Value Reference Range Interpretation Comme nts HEPATITIS A IgM (test code = 27409) NON-REACTIVE HEPATITIS B CORE IgM (test c ode = 4644) NON-REACTIVE HEPATITIS B SURF AG (test co de = 2739) NON-REACTIVE HEPATITIS C ANTIBODY (test c ode = 4675) NON-REACTIVE INTERPRETATION HEPATITIS A: (test code = 2552) (NOTE) INTERPRETATION HEPATITIS B: (test code = 33785) (NOTE) INTERPRETATION HEPATITIS C: (test code = 25300) (NOTE) Dwayne Bah AustinHEMOGLOBIN A1c [ADDED]2023-04-27 00:00:00* Test Item Value Reference Range Interpretation Comme nts HEMOGLOBIN A1c (test code = 11170) 6.3 % Dwayne Bah AustinCT/NG, NAAT, URINE [ADDED]2023-04-27 00:00:00* Test Item Value Reference Range Interpretation Comme nts CHLAMYDIA, NAAT, URINE (test code = 17826) NEGATIVE GONORRHEA, NAAT, URINE (test code = 49776) NEGATIVE Dwayne Bah AustinHIV 1/2 4TH GEN, RFLX CONF [ADDED]2023-04-27 00:00:00* Test Item Value Reference Range Interpretation Comme nts HIV 1/2 4TH GEN, RFLX CONF ( test code = 3514) NON-REACTIVE Dwayne Bah AustinHEPATITIS PANEL, ACUTE [ADDED]2023-04-27 00:00:00* Test Item Value Reference Range Interpretation Comme nts HEPATITIS A IgM (test code = 15740) NON-REACTIVE HEPATITIS B CORE IgM (test c ode = 4644) NON-REACTIVE HEPATITIS B SURF AG (test co de = 2739) NON-REACTIVE HEPATITIS C ANTIBODY (test c ode = 4675) NON-REACTIVE INTERPRETATION HEPATITIS A: (test code = 2552) (NOTE) INTERPRETATION HEPATITIS B: (test code = 39554) (NOTE) INTERPRETATION HEPATITIS C: (test code = 05864) (NOTE) Dwayne Bah AustinHEMOGLOBIN A1c [ADDED]2023-04-27 00:00:00* Test Item Value Reference Range Interpretation Comme nts HEMOGLOBIN A1c (test code = 83008) 6.3 % Dwayne Bah AustinCT/NG, NAAT, URINE [ADDED]2023-04-27 00:00:00* Test Item Value Reference Range Interpretation Comme nts CHLAMYDIA, NAAT, URINE (test code = 70841) NEGATIVE GONORRHEA, NAAT, URINE (test code = 81171) NEGATIVE Dwayne F AustinHIV 1/2 4TH GEN, RFLX CONF [ADDED]2023-04-27 00:00:00* Test Item Value Reference Range Interpretation Comme nts HIV 1/2 4TH GEN, RFLX CONF ( test code = 3514) NON-REACTIVE Dwayne F AustinHEPATITIS PANEL, ACUTE [ADDED]2023-04-27 00:00:00* Test Item Value Reference Range Interpretation Comme nts HEPATITIS A IgM (test code = 97739) NON-REACTIVE HEPATITIS B CORE IgM (test c ode = 4644) NON-REACTIVE HEPATITIS B SURF AG (test co de = 2739) NON-REACTIVE HEPATITIS C ANTIBODY (test c ode = 4675) NON-REACTIVE INTERPRETATION HEPATITIS A: (test code = 2552) (NOTE) INTERPRETATION HEPATITIS B: (test code = 61425) (NOTE) INTERPRETATION HEPATITIS C: (test code = 24657) (NOTE) Dwayne Bah AustinHEMOGLOBIN A1c [ADDED]2023-04-27 00:00:00* Test Item Value Reference Range Interpretation Comme nts HEMOGLOBIN A1c (test code = 38490) 6.3 % Dwayne Bah AustinCT/NG, NAAT, URINE [ADDED]2023-04-27 00:00:00* Test Item Value Reference Range Interpretation Comme nts CHLAMYDIA, NAAT, URINE (test code = 66002) NEGATIVE GONORRHEA, NAAT, URINE (test code = 54886) NEGATIVE Dwayne MyersHIV 1/2 4TH GEN, RFLX CONF [ADDED]2023-04-27 00:00:00* Test Item Value Reference Range Interpretation Comme nts HIV 1/2 4TH GEN, RFLX CONF ( test code = 3514) NON-REACTIVE Dwayne MyersHEPATITIS PANEL, ACUTE [ADDED]2023-04-27 00:00:00* Test Item Value Reference Range Interpretation Comme nts HEPATITIS A IgM (test code = 84683) NON-REACTIVE HEPATITIS B CORE IgM (test c ode = 4644) NON-REACTIVE HEPATITIS B SURF AG (test co de = 2739) NON-REACTIVE HEPATITIS C ANTIBODY (test c ode = 4675) NON-REACTIVE INTERPRETATION HEPATITIS A: (test code = 2552) (NOTE) INTERPRETATION HEPATITIS B: (test code = 33742) (NOTE) INTERPRETATION HEPATITIS C: (test code = 39267) (NOTE) Dwayne Bah AustinHEMOGLOBIN A1c [ADDED]2023-04-27 00:00:00* Test Item Value Reference Range Interpretation Comme nts HEMOGLOBIN A1c (test code = 13329) 6.3 % Dwayne Bah AustinCT/NG, NAAT, URINE [ADDED]2023-04-27 00:00:00* Test Item Value Reference Range Interpretation Comme nts CHLAMYDIA, NAAT, URINE (test code = 95725) NEGATIVE GONORRHEA, NAAT, URINE (test code = 94249) NEGATIVE Dwayne MyersHIV 1/2 4TH GEN, RFLX CONF [ADDED]2023-04-27 00:00:00* Test Item Value Reference Range Interpretation Comme nts HIV 1/2 4TH GEN, RFLX CONF ( test code = 3514) NON-REACTIVE Dwayne MyersHEPATITIS PANEL, ACUTE [ADDED]2023-04-27 00:00:00* Test Item Value Reference Range Interpretation Comme nts HEPATITIS A IgM (test code = 06500) NON-REACTIVE HEPATITIS B CORE IgM (test c ode = 4644) NON-REACTIVE HEPATITIS B SURF AG (test co de = 2739) NON-REACTIVE HEPATITIS C ANTIBODY (test c ode = 4675) NON-REACTIVE INTERPRETATION HEPATITIS A: (test code = 2552) (NOTE) INTERPRETATION HEPATITIS B: (test code = 41096) (NOTE) INTERPRETATION HEPATITIS C: (test code = 33660) (NOTE) Dwayne MyersHEMOGLOBIN A1c [ADDED]2023-04-27 00:00:00* Test Item Value Reference Range Interpretation Comme nts HEMOGLOBIN A1c (test code = 86982) 6.3 % Dwayne Bah AustinCT/NG, NAAT, URINE [ADDED]2023-04-27 00:00:00* Test Item Value Reference Range Interpretation Comme nts CHLAMYDIA, NAAT, URINE (test code = 40493) NEGATIVE GONORRHEA, NAAT, URINE (test code = 65807) NEGATIVE Dwayne MyersHIV 1/2 4TH GEN, RFLX CONF [ADDED]2023-04-27 00:00:00* Test Item Value Reference Range Interpretation Comme nts HIV 1/2 4TH GEN, RFLX CONF ( test code = 3514) NON-REACTIVE Dwayne MyersHEPATITIS PANEL, ACUTE [ADDED]2023-04-27 00:00:00* Test Item Value Reference Range Interpretation Comme nts HEPATITIS A IgM (test code = 55180) NON-REACTIVE HEPATITIS B CORE IgM (test c ode = 4644) NON-REACTIVE HEPATITIS B SURF AG (test co de = 2739) NON-REACTIVE HEPATITIS C ANTIBODY (test c ode = 4675) NON-REACTIVE INTERPRETATION HEPATITIS A: (test code = 2552) (NOTE) INTERPRETATION HEPATITIS B: (test code = 98267) (NOTE) INTERPRETATION HEPATITIS C: (test code = 80273) (NOTE) Dwayne MyersHEMOGLOBIN A1c [ADDED]2023-04-27 00:00:00* Test Item Value Reference Range Interpretation Comme nts HEMOGLOBIN A1c (test code = 00513) 6.3 % Dwayne Bah AustinCT/NG, NAAT, URINE [ADDED]2023-04-27 00:00:00* Test Item Value Reference Range Interpretation Comme nts CHLAMYDIA, NAAT, URINE (test code = 86445) NEGATIVE GONORRHEA, NAAT, URINE (test code = 31280) NEGATIVE Dwayne Bah AustinHIV 1/2 4TH GEN, RFLX CONF [ADDED]2023-04-27 00:00:00* Test Item Value Reference Range Interpretation Comme nts HIV 1/2 4TH GEN, RFLX CONF ( test code = 3514) NON-REACTIVE Dwayne MyersHEPATITIS PANEL, ACUTE [ADDED]2023-04-27 00:00:00* Test Item Value Reference Range Interpretation Comme nts HEPATITIS A IgM (test code = 70123) NON-REACTIVE HEPATITIS B CORE IgM (test c ode = 4644) NON-REACTIVE HEPATITIS B SURF AG (test co de = 2739) NON-REACTIVE HEPATITIS C ANTIBODY (test c ode = 4675) NON-REACTIVE INTERPRETATION HEPATITIS A: (test code = 2552) (NOTE) INTERPRETATION HEPATITIS B: (test code = 85492) (NOTE) INTERPRETATION HEPATITIS C: (test code = 54398) (NOTE) Dwayne Bah AustinHEMOGLOBIN A1c [ADDED]2023-04-27 00:00:00* Test Item Value Reference Range Interpretation Comme nts HEMOGLOBIN A1c (test code = 43910) 6.3 % Dwayne Bah AustinCT/NG, NAAT, URINE [ADDED]2023-04-27 00:00:00* Test Item Value Reference Range Interpretation Comme nts CHLAMYDIA, NAAT, URINE (test code = 91064) NEGATIVE GONORRHEA, NAAT, URINE (test code = 47099) NEGATIVE Dwayne Bah AustinHIV 1/2 4TH GEN, RFLX CONF [ADDED]2023-04-27 00:00:00* Test Item Value Reference Range Interpretation Comme nts HIV 1/2 4TH GEN, RFLX CONF ( test code = 3514) NON-REACTIVE Dwayne Bah AustinHEPATITIS PANEL, ACUTE [ADDED]2023-04-27 00:00:00* Test Item Value Reference Range Interpretation Comme nts HEPATITIS A IgM (test code = 33708) NON-REACTIVE HEPATITIS B CORE IgM (test c ode = 4644) NON-REACTIVE HEPATITIS B SURF AG (test co de = 2739) NON-REACTIVE HEPATITIS C ANTIBODY (test c ode = 4675) NON-REACTIVE INTERPRETATION HEPATITIS A: (test code = 2552) (NOTE) INTERPRETATION HEPATITIS B: (test code = 79820) (NOTE) INTERPRETATION HEPATITIS C: (test code = 68068) (NOTE) Dwayne Bah AustinHEMOGLOBIN A1c [ADDED]2023-04-27 00:00:00* Test Item Value Reference Range Interpretation Comme nts HEMOGLOBIN A1c (test code = 65094) 6.3 % Dwayne Bah AustinCT/NG, NAAT, URINE [ADDED]2023-04-27 00:00:00* Test Item Value Reference Range Interpretation Comme nts CHLAMYDIA, NAAT, URINE (test code = 30773) NEGATIVE GONORRHEA, NAAT, URINE (test code = 26135) NEGATIVE Dwayne Bah AustinHIV 1/2 4TH GEN, RFLX CONF [ADDED]2023-04-27 00:00:00* Test Item Value Reference Range Interpretation Comme nts HIV 1/2 4TH GEN, RFLX CONF ( test code = 3514) NON-REACTIVE Dwayne MyersHEPATITIS PANEL, ACUTE [ADDED]2023-04-27 00:00:00* Test Item Value Reference Range Interpretation Comme nts HEPATITIS A IgM (test code = 09717) NON-REACTIVE HEPATITIS B CORE IgM (test c ode = 4644) NON-REACTIVE HEPATITIS B SURF AG (test co de = 2739) NON-REACTIVE HEPATITIS C ANTIBODY (test c ode = 4675) NON-REACTIVE INTERPRETATION HEPATITIS A: (test code = 2552) (NOTE) INTERPRETATION HEPATITIS B: (test code = 66956) (NOTE) INTERPRETATION HEPATITIS C: (test code = 71923) (NOTE) Dwayne Bah AustinHEMOGLOBIN A1c [ADDED]2023-04-27 00:00:00* Test Item Value Reference Range Interpretation Comme nts HEMOGLOBIN A1c (test code = 22550) 6.3 % Dwayne Bah AustinCT/NG, NAAT, URINE [ADDED]2023-04-27 00:00:00* Test Item Value Reference Range Interpretation Comme nts CHLAMYDIA, NAAT, URINE (test code = 81639) NEGATIVE GONORRHEA, NAAT, URINE (test code = 77181) NEGATIVE Dwayne MyersHIV 1/2 4TH GEN, RFLX CONF [ADDED]2023-04-27 00:00:00* Test Item Value Reference Range Interpretation Comme nts HIV 1/2 4TH GEN, RFLX CONF ( test code = 3514) NON-REACTIVE Dwayne Bah AustinCT/NG, NAAT, URINE [ADDED]2023-04-27 00:00:00* Test Item Value Reference Range Interpretation Comme nts CHLAMYDIA, NAAT, URINE (test code = 59123) NEGATIVE GONORRHEA, NAAT, URINE (test code = 26485) NEGATIVE Dwayne MyersHEPATITIS PANEL, ACUTE [ADDED]2023-04-27 00:00:00* Test Item Value Reference Range Interpretation Comme nts HEPATITIS A IgM (test code = 54205) NON-REACTIVE HEPATITIS B CORE IgM (test c ode = 4644) NON-REACTIVE HEPATITIS B SURF AG (test co de = 2739) NON-REACTIVE HEPATITIS C ANTIBODY (test c ode = 4675) NON-REACTIVE INTERPRETATION HEPATITIS A: (test code = 2552) (NOTE) INTERPRETATION HEPATITIS B: (test code = 47390) (NOTE) INTERPRETATION HEPATITIS C: (test code = 97356) (NOTE) Dwayne Bha AustinHEMOGLOBIN A1c [ADDED]2023-04-27 00:00:00* Test Item Value Reference Range Interpretation Comme nts HEMOGLOBIN A1c (test code = 29795) 6.3 % Dwayne Bah AustinCT/NG, NAAT, URINE [ADDED]2023-04-27 00:00:00* Test Item Value Reference Range Interpretation Comme nts CHLAMYDIA, NAAT, URINE (test code = 38492) NEGATIVE GONORRHEA, NAAT, URINE (test code = 99701) NEGATIVE Dwayne MyersHIV 1/2 4TH GEN, RFLX CONF [ADDED]2023-04-27 00:00:00* Test Item Value Reference Range Interpretation Comme nts HIV 1/2 4TH GEN, RFLX CONF ( test code = 3514) NON-REACTIVE Dwayne MyersHIV 1/2 4TH GEN, RFLX CONF [ADDED]2023-04-27 00:00:00* Test Item Value Reference Range Interpretation Comme nts HIV 1/2 4TH GEN, RFLX CONF ( test code = 3514) NON-REACTIVE Dwayne MauricioPATITIS PANEL, ACUTE [ADDED]2023-04-27 00:00:00* Test Item Value Reference Range Interpretation Comme nts HEPATITIS A IgM (test code = 45831) NON-REACTIVE HEPATITIS B CORE IgM (test c ode = 4644) NON-REACTIVE HEPATITIS B SURF AG (test co de = 2739) NON-REACTIVE HEPATITIS C ANTIBODY (test c ode = 4675) NON-REACTIVE INTERPRETATION HEPATITIS A: (test code = 2552) (NOTE) INTERPRETATION HEPATITIS B: (test code = 88444) (NOTE) INTERPRETATION HEPATITIS C: (test code = 37231) (NOTE) Dwayne MyersHEMOGLOBIN A1c [ADDED]2023-04-27 00:00:00* Test Item Value Reference Range Interpretation Comme nts HEMOGLOBIN A1c (test code = 23014) 6.3 % Dwayne MauricioPATITIS PANEL, ACUTE [ADDED]2023-04-27 00:00:00* Test Item Value Reference Range Interpretation Comme nts HEPATITIS A IgM (test code = 96997) NON-REACTIVE HEPATITIS B CORE IgM (test c ode = 4644) NON-REACTIVE HEPATITIS B SURF AG (test co de = 2739) NON-REACTIVE HEPATITIS C ANTIBODY (test c ode = 4675) NON-REACTIVE INTERPRETATION HEPATITIS A: (test code = 2552) (NOTE) INTERPRETATION HEPATITIS B: (test code = 32034) (NOTE) INTERPRETATION HEPATITIS C: (test code = 93988) (NOTE) Dwayne Bah AustinCT/NG, NAAT, URINE [ADDED]2023-04-27 00:00:00* Test Item Value Reference Range Interpretation Comme nts CHLAMYDIA, NAAT, URINE (test code = 60061) NEGATIVE GONORRHEA, NAAT, URINE (test code = 93484) NEGATIVE Dwayne MyersHIV 1/2 4TH GEN, RFLX CONF [ADDED]2023-04-27 00:00:00* Test Item Value Reference Range Interpretation Comme nts HIV 1/2 4TH GEN, RFLX CONF ( test code = 3514) NON-REACTIVE Dwayne Bah AustinHEMOGLOBIN A1c [ADDED]2023-04-27 00:00:00* Test Item Value Reference Range Interpretation Comme nts HEMOGLOBIN A1c (test code = 59975) 6.3 % Dwayne MauricioPATITIS PANEL, ACUTE [ADDED]2023-04-27 00:00:00* Test Item Value Reference Range Interpretation Comme nts HEPATITIS A IgM (test code = 15106) NON-REACTIVE HEPATITIS B CORE IgM (test c ode = 4644) NON-REACTIVE HEPATITIS B SURF AG (test co de = 2739) NON-REACTIVE HEPATITIS C ANTIBODY (test c ode = 4675) NON-REACTIVE INTERPRETATION HEPATITIS A: (test code = 2552) (NOTE) INTERPRETATION HEPATITIS B: (test code = 60211) (NOTE) INTERPRETATION HEPATITIS C: (test code = 63990) (NOTE) Dwayne MyersHEMOGLOBIN A1c [ADDED]2023-04-27 00:00:00* Test Item Value Reference Range Interpretation Comme nts HEMOGLOBIN A1c (test code = 79676) 6.3 % Dwayne MyersCT/NG, NAAT, URINE [ADDED]2023-04-27 00:00:00* Test Item Value Reference Range Interpretation Comme nts CHLAMYDIA, NAAT, URINE (test code = 15186) NEGATIVE GONORRHEA, NAAT, URINE (test code = 30227) NEGATIVE Dwayne MyersHIV 1/2 4TH GEN, RFLX CONF [ADDED]2023-04-27 00:00:00* Test Item Value Reference Range Interpretation Comme nts HIV 1/2 4TH GEN, RFLX CONF ( test code = 3514) NON-REACTIVE Dwayne MauricioPATITIS PANEL, ACUTE [ADDED]2023-04-27 00:00:00* Test Item Value Reference Range Interpretation Comme nts HEPATITIS A IgM (test code = 30574) NON-REACTIVE HEPATITIS B CORE IgM (test c ode = 4644) NON-REACTIVE HEPATITIS B SURF AG (test co de = 2739) NON-REACTIVE HEPATITIS C ANTIBODY (test c ode = 4675) NON-REACTIVE INTERPRETATION HEPATITIS A: (test code = 2552) (NOTE) INTERPRETATION HEPATITIS B: (test code = 06781) (NOTE) INTERPRETATION HEPATITIS C: (test code = 20369) (NOTE) Dwayne MyersHEMOGLOBIN A1c [ADDED]2023-04-27 00:00:00* Test Item Value Reference Range Interpretation Comme nts HEMOGLOBIN A1c (test code = 83288) 6.3 % Dwayne MyersCT/NG, NAAT, URINE [ADDED]2023-04-27 00:00:00* Test Item Value Reference Range Interpretation Comme nts CHLAMYDIA, NAAT, URINE (test code = 53128) NEGATIVE GONORRHEA, NAAT, URINE (test code = 25247) NEGATIVE Dwayne MyersHIV 1/2 4TH GEN, RFLX CONF [ADDED]2023-04-27 00:00:00* Test Item Value Reference Range Interpretation Comme nts HIV 1/2 4TH GEN, RFLX CONF ( test code = 3514) NON-REACTIVE Dwayne MyersU/S GALLBLADDER*WW*2023-04-15 05:22[facility] 1970 Sex: FDICTATION LOCATION: [id number]: Female, 52 years of age with abdominal [...] AND PELVIS WITH CONTRAST*WW*2023-04-15 02:03:27 [facility]ENTERName: N[facility]CIE ORDONEZ : 1970 Sex: FEXAM: CT ABDOMEN PELVIS WITH IV CONTRASTLOCATION: [id number]: Abdominal painTECHNIQUE: Serial axial CT images wereobtained [...] which is a nonspecific finding given lack of calcified gallstones or gallbladder distention. Differential includes both early acute and chronic cholecystitis.Minimal consolidation and groundglass opacities in the right lower lobe, representing prominent atelectasis or sequelae of aspiration with or without developing infection.Electronically signed by: Siddhartha Jackson DO 04/15/2023 2:03 AM CDT [id number] WITH MICRO *WW*2023-04-15 01:39:00* Test Item Value [...] code = A74) 16 pg/mL See_Comment [Automated Smart [employer]ouncer] The system which generated this result transmitted [...] A84) 13.47 pg/mL 0.00-45.20 CBC (INCLUDES AUTOMATED DIFFERENTIAL)*[id number] 00:18:00* Test Item Value Reference Range Interpretation [...] C-ARM<1 HR W IMAGES*WW*2023-02-08 11:26:14 [facility] CENTERName: NANCIE ORDONEZ : 1970 Sex: FFluoroscopyLocation Code: [id number] HISTORY: Back painComments: Fluoroscopy was provided during lumbar RFA. Approximately fluoroscopy time was 9.1 seconds. 2 fluoroscopic spot images were taken.IMPRESSION: Fluoroscopy services provided. Please see operative report for full details.Electronically signed by: Iglesia Garvey MD 02/08/2023 11:26 AM CDT + LH [id number] 07:50:33* Test Item Value Reference Range Interpretation [...] LUTEAL PHASE 1.0-11.4 IU/L POSTMENOPAUSAL 7.7-58.5 IU/L [facility] has important pathology staff changes effective 11/01/2022. New pathology staff will provide uninterrupted, excellent patient care and clinical consultation. See URL: [email or web address]. UNLESS OTHERWISE INDICATED, ALL TESTING PERFORMED AT [facility] [address] [place] [address] HUMAN PERFORMANCE TECHNOLOGIST: BO MILLER M.D. IA NUMBER [id number] [facility] [place]. [id number] FSH + LH [id number] 00:00:00* Test Item Value Reference Range Interpretation Comme nts FOLLICLE STIM HORMONE (test code = 2700) 42.3 IU/L LUTEINIZING HORMONE (test co de = 2776) 25.7 IU/L Dwayne Bah AustinFSH + LH [id number] 00:00:00* Test Item Value Reference Range Interpretation Comme nts FOLLICLE STIM HORMONE (test code = 2700) 42.3 IU/L LUTEINIZING HORMONE (test co de = 2776) 25.7 IU/L Dwayne Bah AustinFSH + LH [id number] 00:00:00* Test Item Value Reference Range Interpretation Comme nts FOLLICLE STIM HORMONE (test code = 2700) 42.3 IU/L LUTEINIZING HORMONE (test co de = 2776) 25.7 IU/L Dwayne Bah AustinFSH + LH [id number] 00:00:00* Test Item Value Reference Range Interpretation Comme nts FOLLICLE STIM HORMONE (test code = 2700) 42.3 IU/L LUTEINIZING HORMONE (test co de = 2776) 25.7 IU/L Dwayne Bah AustinFSH + LH [id number] 00:00:00* Test Item Value Reference Range Interpretation Comme nts FOLLICLE STIM HORMONE (test code = 2700) 42.3 IU/L LUTEINIZING HORMONE (test co de = 2776) 25.7 IU/L Dwayne Bah AustinFSH + LH [id number] 00:00:00* Test Item Value Reference Range Interpretation Comme nts FOLLICLE STIM HORMONE (test code = 2700) 42.3 IU/L LUTEINIZING HORMONE (test co de = 2776) 25.7 IU/L Dwayne Bah AustinFSH + LH [id number] 00:00:00* Test Item Value Reference Range Interpretation Comme nts FOLLICLE STIM HORMONE (test code = 2700) 42.3 IU/L LUTEINIZING HORMONE (test co de = 2776) 25.7 IU/L Dwayne Bah AustinFSH + LH [id number] 00:00:00* Test Item Value Reference Range Interpretation Comme nts FOLLICLE STIM HORMONE (test code = 2700) 42.3 IU/L LUTEINIZING HORMONE (test co de = 2776) 25.7 IU/L Dwayne Bah AustinFSH + LH [id number] 00:00:00* Test Item Value Reference Range Interpretation Comme nts FOLLICLE STIM HORMONE (test code = 2700) 42.3 IU/L LUTEINIZING HORMONE (test co de = 2776) 25.7 IU/L Dwayne Bah AustinFSH + LH [id number] 00:00:00* Test Item Value Reference Range Interpretation Comme nts FOLLICLE STIM HORMONE (test code = 2700) 42.3 IU/L LUTEINIZING HORMONE (test co de = 2776) 25.7 IU/L Dwayne Bah AustinFSH + LH [id number] 00:00:00* Test Item Value Reference Range Interpretation Comme nts FOLLICLE STIM HORMONE (test code = 2700) 42.3 IU/L LUTEINIZING HORMONE (test co de = 2776) 25.7 IU/L Dwayne Bah AustinFSH + LH [id number] 00:00:00* Test Item Value Reference Range Interpretation Comme nts FOLLICLE STIM HORMONE (test code = 2700) 42.3 IU/L LUTEINIZING HORMONE (test co de = 2776) 25.7 IU/L Dwayne Bah AustinFSH + LH [id number] 00:00:00* Test Item Value Reference Range Interpretation Comme nts FOLLICLE STIM HORMONE (test code = 2700) 42.3 IU/L LUTEINIZING HORMONE (test co de = 2776) 25.7 IU/L Dwayne Bah AustinFSH + LH [id number] 00:00:00* Test Item Value Reference Range Interpretation Comme nts FOLLICLE STIM HORMONE (test code = 2700) 42.3 IU/L LUTEINIZING HORMONE (test co de = 2776) 25.7 IU/L Dwayne Bah AustinFSH + LH [id number] 00:00:00* Test Item Value Reference Range Interpretation Comme nts FOLLICLE STIM HORMONE (test code = 2700) 42.3 IU/L LUTEINIZING HORMONE (test co de = 2776) 25.7 IU/L Dwayne Bah AustinFSH + LH [id number] 00:00:00* Test Item Value Reference Range Interpretation Comme nts FOLLICLE STIM HORMONE (test code = 2700) 42.3 IU/L LUTEINIZING HORMONE (test co de = 2776) 25.7 IU/L Dwayne Bah AustinFSH + LH [id number] 00:00:00* Test Item Value Reference Range Interpretation Comme nts FOLLICLE STIM HORMONE (test code = 2700) 42.3 IU/L LUTEINIZING HORMONE (test co de = 2776) 25.7 IU/L Dwayne Bah AustinFSH + LH [id number] 00:00:00* Test Item Value Reference Range Interpretation Comme nts FOLLICLE STIM HORMONE (test code = 2700) 42.3 IU/L LUTEINIZING HORMONE (test co de = 2776) 25.7 IU/L Dwayne Bah AustinFSH + LH [id number] 00:00:00* Test Item Value Reference Range Interpretation Comme nts FOLLICLE STIM HORMONE (test code = 2700) 42.3 IU/L LUTEINIZING HORMONE (test co de = 2776) 25.7 IU/L Dwayne Bah AustinFSH + LH [id number] 00:00:00* Test Item Value Reference Range Interpretation Comme nts FOLLICLE STIM HORMONE (test code = 2700) 42.3 IU/L LUTEINIZING HORMONE (test co de = 2776) 25.7 IU/L Dwayne Bah AustinFSH + LH [id number] 00:00:00* Test Item Value Reference Range Interpretation Comme nts FOLLICLE STIM HORMONE (test code = 2700) 42.3 IU/L LUTEINIZING HORMONE (test co de = 2776) 25.7 IU/L Dwayne F AustinFSH + LH [id number] 00:00:00* Test Item Value Reference Range Interpretation Comme nts FOLLICLE STIM HORMONE (test code = 2700) 42.3 IU/L LUTEINIZING HORMONE (test co de = 2776) 25.7 IU/L Dwayne MyersXR KNEE RIGHT 1 OR 2 VIEW *WW*2022-12-11 21:28:07 [facility] 1970 Sex: FExam: [...] Alexey Ott MD 12/11/2022 9:28 PM CDT [id number] STIMULATING [id number] 17:34:00* Test Item Value Reference Range Interpretation Comme nts TSH (test code = 1248858526) 1.00 See_Comment Biotin has been reported to cause a negative bias, interpret results relative to patient's use of biotin. [Automated message] The system which generated this result transmitted reference range: 0.45 - 4.70 mIU/L. The reference range was not used to interpret this result as normal/abnormal. Lab Interpretation (test code = 57432-7) Normal [facility] [id number] 14:56:35* Test Item Value Reference Range Interpretation Comme nts TROPONIN I (test code = 1745662729) 0.009 ng/mL <=0.034 LUCILLE (test code = [...] of biotin. Lab Interpretation (test code = 16300-5) Normal [facility] LakeTR[facility] [id number] 07:53:48* Test Item Value Reference Range Interpretation Comme nts TROPONIN I (test code = 2094885884) 0.004 ng/mL <=0.034 LUCILLE (test code = [...] of biotin. Lab Interpretation (test code = 27704-8) Normal [facility] LakeN-TERMINAL [id number] 07:53:48* Test Item Value Reference Range Interpretation Comme nts NT-proBNP (test code = 6525933196) 61 pg/mL <=125 LUCILLE (test code = LUCILLE) Biotin has been reported to cause a negative bias, interpret results relative to patient's use of biotin. Lab Interpretation (test code = 54453-6) Normal [facility] LakeCOMP. METABOLIC PANEL (91843)2022-11-05 07:41:51* Test Item Value Reference Range Interpretation Comme nts NA (test code = 6783840409) 139 mmol/L 135-145 K (test code = 8130181771) 4.4 mmol/L 3.5-5.0 CL (test code = 9880125470) 106 mmol/L 98-108 CO2 TOTAL (test code = 9653750754) 26 mmol/L 23-31 AGAP (test code = 5283556677) 7 2-16 BUN (test code = 1675298893) 9 mg/dL 7-23 GLUCOSE (test code = 7150348706) 100 mg/dL 70-110 CREATININE (test code = 3278275906) 0.86 mg/dL 0.50-1.04 TOTAL BILI (test code = 5192573197) 0.4 mg/dL 0.1-1.1 CALCIUM (test code = 2149078025) 9.1 mg/dL 8.6-10.6 T PROTEIN (test code = 2176608496) 6.8 g/dL 6.3-8.2 ALBUMIN (test code = 2508780510) 4.1 g/dL 3.5-5.0 ALK PHOS (test code = 6510994449) 74 U/L 34-122 ALTv (test code = 1742-6) 21 U/L 5-35 AST(SGOT) (test code = 0196423799) 23 U/L 13-40 eGFR (test code = 2582531834) 69.6 mL/min/1.73m2 LUCILLE (test code = LUCILLE) [...] abnormalities in imaging tests). [facility] [id number] 07:39:46* Test Item Value Reference Range Interpretation Comme [facility] PREG SERUM (test code = 2122434874) Negative LUCILLE (test code = LUCILLE) Less than 10 IU/L. ?If low titer or ectopic is suspected, resubmit specimen in 48-72 hours. [facility] THRMPLAS [id number] 07:39:31* Test Item Value Reference Range Interpretation Comme [facility] APTT Patient (test code = 3173-2) 27 See_Comment [Automated [employer]] The system which generated this result transmitted reference range: 26 - 36 Seconds. The reference range was not used to interpret this result as normal/abnormal. Lab Interpretation (test code = 65506-6) Normal [facility] / [id number] 07:39:31* Test Item Value Reference Range Interpretation Comme [facility] PROTIME PATIENT (test code = 5964-2) 13.4 See_Comment H [Automated [employer]] The system which generated this result transmitted reference range: 10.1 - 12.6 Seconds. The reference range was not used to interpret this result as normal/abnormal. INR (test code = 6301-6) 1.2 Normal INR <1.1; Warfarin Therapeutic range 2.0 to 3.0 or 2.5 to 3.5, depending upon the indications. Lab Interpretation (test code = 39562-2) Abnormal [facility] Lake[facility]-[id number] 07:39:31* Test Item Value Reference Range Interpretation Comments D-DIMER (test code = 8648144967) 1.06 See_Comment H [Automated message] The system [...] a diagnosis. Lab Interpretation (test code = 11360-9) Abnormal [facility] WITH [id number] 07:28:32* Test Item Value Reference Range Interpretation Comme nts WBC (test code = 6690-2) 6.53 See_Comment [Automated [employer]] The system which generated this result transmitted reference range: 4.30 - 11.10 10*3/?L. The reference range was not used to interpret this result as normal/abnormal. RBC (test code = 789-8) 4.97 See_Comment [Automated [employer]] The system which generated this result transmitted [...] 32.3 g/dL 31.6-35.1 RDW-SD (test code = 45701-9) 46.0 fL 39.0-49.9 RDW-CV (test code = 788-0) 15.6 % 12.0-15.5 H PLT (test code = 777-3) 272 See_Comment [Automated messa ge] The system which generated this result transmitted reference range: 166 - 358 10*3/?L. The reference range was not used to interpret this result as normal/abnormal. MPV (test code = 67188-2) 11.5 fL 9.5-12.9 NRBC/100 WBC (test code = 3817140525) 0.0 See_Comment [Automated [employer] ssage] The system which generated this result transmitted reference range: 0.0 - 10.0 /100 WBCs. The reference range was not used to interpret this result as normal/abnormal. NRBC x10^3 (test code = 6049611210) See_Comment [Automated messa ge] The system which generated this result transmitted reference range: 10*3/?L. The reference range was not used to interpret this result as normal/abnormal. GRAN MAT (NEUT) % (test code = 770-8) 58.2 % IMM GRAN % (test code = 4813584907) 0.20 % LYMPH % (test code = 736-9) 31.1 % MONO % (test code = 5905-5) 9.3 % EOS % (test code = 713-8) 0.3 % BASO % (test code = 706-2) 0.9 % GRAN MAT x10^3(ANC) (test code = 4208513413) 3.80 10*3/uL 1.88-7.09 IMM GRAN x10^3 (test code = 2900455012) 0.00-0.06 LYMPH x10^3 (test code = 731-0) 2.03 10*3/uL 1.32-3.29 MONO x10^3 (test code = 742-7) 0.61 10*3/uL 0.33-0.92 EOS x10^3 (test code = 711-2) 0.03-0.39 L BASO x10^3 (test code = 704-7) 0.06 10*3/uL 0.01-0.07 Lab Interpretation (test code = 76472-2) [facility]normal [facility], URINE, RANDOM 2022-11-03 05:51:41* Test Item Value Reference Range Interpretation Comme nts CREATININE, URINE, CONC. (test code = 2071) 356.1 MG/DL NOT ESTAB ALBUMIN, URINE, RANDOM (test code = 26894) 2.0 MG/DL NOT ESTAB CALC ALBUMIN/CREAT, RND (test code = 37812) 6 MG/G <30 Note: Albumin/Cr eatinine ratio reference interval reflects ADA and NKF guidelines. [facility] has important pathology staff changes effective 11/01/2022. New pathology staff will provide uninterrupted, excellent patient care and clinical consultation. See URL: [email or web address]. UNLESS OTHERWISE INDICATED, ALL TESTING PERFORMED AT [facility] [address] [place] [address] HUMAN PERFORMANCE TECHNOLOGIST: SADIQ VANEGAS M.D. [place] NUMBER [id number] [facility] [place]. [id number] 05:26:24* Test Item Value Reference Range Interpretation Comme nts NT-proBNP (test code = 54700) <50 PG/ML SEE BELOW If NT-ProBNP is less than 300 PG/ML, heart failure is unlikely for allages. Age.................Heart Failure Likely <50 Years...........>=450 PG/ML 50-75 Years.........>=900 PG/ML > 75 Years..........>=1800 PG/ML Methodology: Lewis Raine Electrochemiluminescense Immunoassay [id number] 00:00:00* Test Item Value Reference Range Interpretation Comme nts NT-proBNP (test code = 77516) <50 PG/ML Dwayne Bah LouisALBUMIN/CREATININE RATIO, RANDOM [id number] 00:00:00* Test Item Value Reference Range Interpretation Comme nts CREATININE, URINE, CONC. (te st code = 2071) 356.1 MG/DL ALBUMIN, URINE, RANDOM (test code = 61320) 2.0 MG/DL CALC ALBUMIN/CREAT, RND (ector t code = 26193) 6 MG/G Dwayne MyersHegwdxTX-[id number] 00:00:00* Test Item Value Reference Range Interpretation Comme nts NT-proBNP (test code = 33287) <50 PG/ML Dwayne Bah AustinALBUMIN/CREATININE RATIO, RANDOM [id number] 00:00:00* Test Item Value Reference Range Interpretation Comme nts CREATININE, URINE, CONC. (te st code = 2072) 356.1 MG/DL ALBUMIN, URINE, RANDOM (test code = 30079) 2.0 MG/DL CALC ALBUMIN/CREAT, RND (ector t code = 39459) 6 MG/G Dwayne Bah [id number]-[id number] 00:00:00* Test Item Value Reference Range Interpretation Comme nts NT-proBNP (test code = 08642) <50 PG/ML Dwayne F AustinALBUMIN/CREATININE RATIO, RANDOM [id number] 00:00:00* Test Item Value Reference Range Interpretation Comme nts CREATININE, URINE, CONC. (te st code = 2072) 356.1 MG/DL ALBUMIN, URINE, RANDOM (test code = 78626) 2.0 MG/DL CALC ALBUMIN/CREAT, RND (ector t code = 14263) 6 MG/G Dwayne Bah TnnrtyQQ-[id number] 00:00:00* Test Item Value Reference Range Interpretation Comme nts NT-proBNP (test code = 60587) <50 PG/ML Dwayne Bah AustinALBUMIN/CREATININE RATIO, RANDOM [id number] 00:00:00* Test Item Value Reference Range Interpretation Comme nts CREATININE, URINE, CONC. (te st code = 2072) 356.1 MG/DL ALBUMIN, URINE, RANDOM (test code = 83085) 2.0 MG/DL CALC ALBUMIN/CREAT, RND (ector t code = 13741) 6 MG/G Dwayne F PzxvwiYY-[id number] 00:00:00* Test Item Value Reference Range Interpretation Comme nts NT-proBNP (test code = 29126) <50 PG/ML Dwayne F AustinALBUMIN/CREATININE RATIO, RANDOM [id number] 00:00:00* Test Item Value Reference Range Interpretation Comme nts CREATININE, URINE, CONC. (te st code = 2072) 356.1 MG/DL ALBUMIN, URINE, RANDOM (test code = 08004) 2.0 MG/DL CALC ALBUMIN/CREAT, RND (ector t code = 71764) 6 MG/G Dwayne Bah [id number]-[id number] 00:00:00* Test Item Value Reference Range Interpretation Comme nts NT-proBNP (test code = 81639) <50 PG/ML Dwayne F AustinALBUMIN/CREATININE RATIO, RANDOM [id number] 00:00:00* Test Item Value Reference Range Interpretation Comme nts CREATININE, URINE, CONC. (te st code = 2072) 356.1 MG/DL ALBUMIN, URINE, RANDOM (test code = 56460) 2.0 MG/DL CALC ALBUMIN/CREAT, RND (ector t code = 99565) 6 MG/G Dwayne F [id number]-[id number] 00:00:00* Test Item Value Reference Range Interpretation Comme nts NT-proBNP (test code = 43434) <50 PG/ML Dwayne F AustinALBUMIN/CREATININE RATIO, RANDOM [id number] 00:00:00* Test Item Value Reference Range Interpretation Comme nts CREATININE, URINE, CONC. (te st code = 2072) 356.1 MG/DL ALBUMIN, URINE, RANDOM (test code = 96105) 2.0 MG/DL CALC ALBUMIN/CREAT, RND (ector t code = 85233) 6 MG/G Dwayne F AkxaraMC-[id number] 00:00:00* Test Item Value Reference Range Interpretation Comme nts NT-proBNP (test code = 50908) <50 PG/ML Dwayne F AustinALBUMIN/CREATININE RATIO, RANDOM [id number] 00:00:00* Test Item Value Reference Range Interpretation Comme nts CREATININE, URINE, CONC. (te st code = 2072) 356.1 MG/DL ALBUMIN, URINE, RANDOM (test code = 18649) 2.0 MG/DL CALC ALBUMIN/CREAT, RND (ector t code = 94922) 6 MG/G Dwayne F FnzfadFO-[id number] 00:00:00* Test Item Value Reference Range Interpretation Comme nts NT-proBNP (test code = 97948) <50 PG/ML Dwayne F AustinALBUMIN/CREATININE RATIO, RANDOM [id number] 00:00:00* Test Item Value Reference Range Interpretation Comme nts CREATININE, URINE, CONC. (te st code = 2071) 356.1 MG/DL ALBUMIN, URINE, RANDOM (test code = 96741) 2.0 MG/DL CALC ALBUMIN/CREAT, RND (ector t code = 14072) 6 MG/G Dwayne Bah [id number]-[id number] 00:00:00* Test Item Value Reference Range Interpretation Comme nts NT-proBNP (test code = 75029) <50 PG/ML Dwayne F AustinALBUMIN/CREATININE RATIO, RANDOM [id number] 00:00:00* Test Item Value Reference Range Interpretation Comme nts CREATININE, URINE, CONC. (te st code = 2071) 356.1 MG/DL ALBUMIN, URINE, RANDOM (test code = 10931) 2.0 MG/DL CALC ALBUMIN/CREAT, RND (ector t code = 23918) 6 MG/G Dwayne Bah [id number]-[id number] 00:00:00* Test Item Value Reference Range Interpretation Comme nts NT-proBNP (test code = 31619) <50 PG/ML Dwayne Bah AustinALBUMIN/CREATININE RATIO, RANDOM [id number] 00:00:00* Test Item Value Reference Range Interpretation Comme nts CREATININE, URINE, CONC. (te st code = 2071) 356.1 MG/DL ALBUMIN, URINE, RANDOM (test code = 29377) 2.0 MG/DL CALC ALBUMIN/CREAT, RND (ector t code = 22952) 6 MG/G Dwayne Bah [id number]-[id number] 00:00:00* Test Item Value Reference Range Interpretation Comme nts NT-proBNP (test code = 33336) <50 PG/ML Dwayne F AustinALBUMIN/CREATININE RATIO, RANDOM [id number] 00:00:00* Test Item Value Reference Range Interpretation Comme nts CREATININE, URINE, CONC. (te st code = 2071) 356.1 MG/DL ALBUMIN, URINE, RANDOM (test code = 79812) 2.0 MG/DL CALC ALBUMIN/CREAT, RND (ector t code = 68367) 6 MG/G Dwayne F [id number]-[id number] 00:00:00* Test Item Value Reference Range Interpretation Comme nts NT-proBNP (test code = 68897) <50 PG/ML Dwayne Bah AustinALBUMIN/CREATININE RATIO, RANDOM [id number] 00:00:00* Test Item Value Reference Range Interpretation Comme nts CREATININE, URINE, CONC. (te st code = 2071) 356.1 MG/DL ALBUMIN, URINE, RANDOM (test code = 22693) 2.0 MG/DL CALC ALBUMIN/CREAT, RND (ector t code = 95144) 6 MG/G Dwayne Bah OosftdYZ-[id number] 00:00:00* Test Item Value Reference Range Interpretation Comme nts NT-proBNP (test code = 06073) <50 PG/ML Dwayne F AustinALBUMIN/CREATININE RATIO, RANDOM [id number] 00:00:00* Test Item Value Reference Range Interpretation Comme nts CREATININE, URINE, CONC. (te st code = 2071) 356.1 MG/DL ALBUMIN, URINE, RANDOM (test code = 02613) 2.0 MG/DL CALC ALBUMIN/CREAT, RND (ector t code = 91814) 6 MG/G Dwayne Bah DpobjpXM-[id number] 00:00:00* Test Item Value Reference Range Interpretation Comme nts NT-proBNP (test code = 69472) <50 PG/ML Dwayne Bah AustinALBUMIN/CREATININE RATIO, RANDOM [id number] 00:00:00* Test Item Value Reference Range Interpretation Comme nts CREATININE, URINE, CONC. (te st code = 2071) 356.1 MG/DL ALBUMIN, URINE, RANDOM (test code = 19729) 2.0 MG/DL CALC ALBUMIN/CREAT, RND (ector t code = 24837) 6 MG/G Dwayne Bah [id number]-[id number] 00:00:00* Test Item Value Reference Range Interpretation Comme nts NT-proBNP (test code = 18480) <50 PG/ML Dwayne Bah AustinALBUMIN/CREATININE RATIO, RANDOM [id number] 00:00:00* Test Item Value Reference Range Interpretation Comme nts CREATININE, URINE, CONC. (te st code = 2071) 356.1 MG/DL ALBUMIN, URINE, RANDOM (test code = 67096) 2.0 MG/DL CALC ALBUMIN/CREAT, RND (ector t code = 31831) 6 MG/G Dwayne Bah PdcesvZG-[id number] 00:00:00* Test Item Value Reference Range Interpretation Comme nts NT-proBNP (test code = 57693) <50 PG/ML Dwayne Bah MnxqwdYU-[id number] 00:00:00* Test Item Value Reference Range Interpretation Comme nts NT-proBNP (test code = 84821) <50 PG/ML Dwayne Bah AustinALBUMIN/CREATININE RATIO, RANDOM [id number] 00:00:00* Test Item Value Reference Range Interpretation Comme nts CREATININE, URINE, CONC. (te st code = 207) 356.1 MG/DL ALBUMIN, URINE, RANDOM (test code = 13267) 2.0 MG/DL CALC ALBUMIN/CREAT, RND (ector t code = 22701) 6 MG/G Dwayne Bah AustinALBUMIN/CREATININE RATIO, RANDOM [id number] 00:00:00* Test Item Value Reference Range Interpretation Comme nts CREATININE, URINE, CONC. (te st code = 207) 356.1 MG/DL ALBUMIN, URINE, RANDOM (test code = 91096) 2.0 MG/DL CALC ALBUMIN/CREAT, RND (ector t code = 18587) 6 MG/G Dwayne Bah KmhyheCH-[id number] 00:00:00* Test Item Value Reference Range Interpretation Comme nts NT-proBNP (test code = 59191) <50 PG/ML Dwayne Bah AustinALBUMIN/CREATININE RATIO, RANDOM [id number] 00:00:00* Test Item Value Reference Range Interpretation Comme nts CREATININE, URINE, CONC. (te st code = 207) 356.1 MG/DL ALBUMIN, URINE, RANDOM (test code = 95733) 2.0 MG/DL CALC ALBUMIN/CREAT, RND (ector t code = 43577) 6 MG/G Dwayne Bah DstgpgOD-[id number] 00:00:00* Test Item Value Reference Range Interpretation Comme nts NT-proBNP (test code = 65751) <50 PG/ML Dwayne Bah AustinALBUMIN/CREATININE RATIO, RANDOM [id number] 00:00:00* Test Item Value Reference Range Interpretation Comme nts CREATININE, URINE, CONC. (te st code = 2071) 356.1 MG/DL ALBUMIN, URINE, RANDOM (test code = 74285) 2.0 MG/DL CALC ALBUMIN/CREAT, RND (ector t code = 01597) 6 MG/G Dwayne Bah [id number]-[id number] 00:00:00* Test Item Value Reference Range Interpretation Comme nts NT-proBNP (test code = 92238) <50 PG/ML Dwayne Bah AustinALBUMIN/CREATININE RATIO, RANDOM [id number] 00:00:00* Test Item Value Reference Range Interpretation Comme nts CREATININE, URINE, CONC. (te st code = 2071) 356.1 MG/DL ALBUMIN, URINE, RANDOM (test code = 30547) 2.0 MG/DL CALC ALBUMIN/CREAT, RND (ector t code = 85176) 6 MG/G Dwayne Bah DoiugfYI-[id number] 00:00:00* Test Item Value Reference Range Interpretation Comme nts NT-proBNP (test code = 50931) <50 PG/ML Dwayne Bah AustinALBUMIN/CREATININE RATIO, RANDOM [id number] 00:00:00* Test Item Value Reference Range Interpretation Comme nts CREATININE, URINE, CONC. (te st code = 2071) 356.1 MG/DL ALBUMIN, URINE, RANDOM (test code = 45390) 2.0 MG/DL CALC ALBUMIN/CREAT, RND (ector t code = 92614) 6 MG/G Dwayne MyersCOMPREHENSIVE METABOLIC [id number] 06:45:27* Test Item Value Reference Range Interpretation Comme nts GLUCOSE (test code = 2217) 126 MG/DL 70-99 H BUN (test code = 2208) 12 MG/DL 6-20 CREATININE (test code = 2214) 1.24 MG/DL 0.60-1.30 eGFR (2020 CKD-EPI) (test code = 05654) 53 ML/MIN/1.73 >60 L The NKF-ASN Taskforce recommends use of Cystatin C to confirm eGFR inadults at risk for CKD. [facility] offers eGFR with Cystatin C-Creatinineusing the 2020 CKD-EPI eGFR_creat-cystat equation (order code 3057) toincrease the accuracy of estimated GFR. For more information, contactyour account services specialist or see announcement [email or web address] CALC BUN/CREAT (test code = 2234) 10 [...] 77 U/L 40-130 AST (test code = 221) 16 U/L 9-40 ALT (test code = 221) 15 U/L 5-40 LIPID [id number] 06:45:27* Test Item Value Reference Range Interpretation Comme nts CHOLESTEROL (test code = 2210) 182 MG/DL <200 TRIGLYCERIDES (test code = 2232) 82 MG/DL <150 HDL CHOLESTEROL (test code = 2220) 50 MG/DL >39 CALC LDL CHOL (test code = 223) 114 MG/DL <100 H NOTE: CALCULATED LDL IS BASED ON GLENIS-MIRELES METHOD WHICHINCLUDES ADJUSTABLE TRIGLYCERIDE:VLDL CHOLESTEROL RATIO.THIS FACTOR VARIES BY MEASURED TRIGLYCERIDE AND NON-HDLCHOLESTEROL CONCENTRATIONS WITH INCREASED CALCULATED LDL SEENIN HIGHER TRIGLYCERIDE OR LOWER NON-HDL SPECIMENS. FOR MOREINFORMATION, SEE CLIENT ANNOUNCEMENT AT [email or web address] RISK RATIO LDL/HDL (test code = 223) 2.28 RATIO <3.22 HEMOGLOBIN [id number] 02:34:56* Test Item Value Reference Range Interpretation Comme nts HEMOGLOBIN A1c (test code = 02616) 6.4 % 4.2-5.6 H UNLESS OTHERWISE INDICATED, [facility] [address] [place] [address] HUMAN PERFORMANCE TECHNOLOGIST: SADIQ VANEGAS M.D. [place] NUMBER [id number] [facility] [place]. [id number] COMPREHENSIVE METABOLIC [id number] 00:00:00* Test Item Value Reference Range Interpretation Comme nts GLUCOSE (test code = 2217) 126 MG/DL BUN (test code = 2208) 12 MG/DL CREATININE (test code = 2214) 1.24 MG/DL eGFR (2020 CKD-EPI) (test co de = 18498) 53 ML/MIN/1.73 CALC BUN/CREAT (test code = [...] = 2219) 15 U/L Dwayne Bah AustinLIPID [id number] 00:00:00* Test Item Value Reference Range Interpretation Comme nts CHOLESTEROL (test code = 2210) 182 MG/DL TRIGLYCERIDES (test code = 2232) 82 MG/DL HDL CHOLESTEROL (test code = 2220) 50 MG/DL CALC LDL CHOL (test code = 2237) 114 MG/DL RISK RATIO LDL/HDL (test cod e = 2238) 2.28 RATIO Dwayne MyersHEMOGLOBIN [id number] 00:00:00* Test Item Value Reference Range Interpretation Comme nts HEMOGLOBIN A1c (test code = 25526) 6.4 % Dwayen MyersCOMPREHENSIVE METABOLIC [id number] 00:00:00* Test Item Value Reference Range Interpretation Comme nts GLUCOSE (test code = 2217) 126 MG/DL BUN (test code = 2208) 12 MG/DL CREATININE (test code = 2214) 1.24 MG/DL eGFR (2020 CKD-EPI) (test co de = 47168) 53 ML/MIN/1.73 CALC BUN/CREAT (test code = [...] = 2219) 15 U/L Dwayne Bah AustinLIPID [id number] 00:00:00* Test Item Value Reference Range Interpretation Comme nts CHOLESTEROL (test code = 2210) 182 MG/DL TRIGLYCERIDES (test code = 2232) 82 MG/DL HDL CHOLESTEROL (test code = 2220) 50 MG/DL CALC LDL CHOL (test code = 2237) 114 MG/DL RISK RATIO LDL/HDL (test cod e = 2238) 2.28 RATIO Dwayne Bah AustinHEMOGLOBIN [id number] 00:00:00* Test Item Value Reference Range Interpretation Comme nts HEMOGLOBIN A1c (test code = 83042) 6.4 % Dwayne Bah AustinCOMPREHENSIVE METABOLIC [id number] 00:00:00* Test Item Value Reference Range Interpretation Comme nts GLUCOSE (test code = 2217) 126 MG/DL BUN (test code = 2208) 12 MG/DL CREATININE (test code = 2214) 1.24 MG/DL eGFR (2020 CKD-EPI) (test co de = 03449) 53 ML/MIN/1.73 CALC BUN/CREAT (test code = [...] code = 2219) 15 U/L Dwayne Bah PotomacLIPID [id number] 00:00:00* Test Item Value Reference Range Interpretation Comme nts CHOLESTEROL (test code = 2210) 182 MG/DL TRIGLYCERIDES (test code = 2232) 82 MG/DL HDL CHOLESTEROL (test code = 2220) 50 MG/DL CALC LDL CHOL (test code = 2237) 114 MG/DL RISK RATIO LDL/HDL (test cod e = 2238) 2.28 RATIO Dwayne MyersHEMOGLOBIN [id number] 00:00:00* Test Item Value Reference Range Interpretation Comme nts HEMOGLOBIN A1c (test code = 98205) 6.4 % Dwayne Bah LouisCOMPREHENSIVE METABOLIC [id number] 00:00:00* Test Item Value Reference Range Interpretation Comme nts GLUCOSE (test code = 2217) 126 MG/DL BUN (test code = 2208) 12 MG/DL CREATININE (test code = 2214) 1.24 MG/DL eGFR (2020 CKD-EPI) (test co de = 58787) 53 ML/MIN/1.73 CALC BUN/CREAT (test code = [...] code = 2219) 15 U/L Dwayne MyersLIPID [id number] 00:00:00* Test Item Value Reference Range Interpretation Comme nts CHOLESTEROL (test code = 2210) 182 MG/DL TRIGLYCERIDES (test code = 2232) 82 MG/DL HDL CHOLESTEROL (test code = 2220) 50 MG/DL CALC LDL CHOL (test code = 2237) 114 MG/DL RISK RATIO LDL/HDL (test cod e = 2238) 2.28 RATIO Dwayne MyersHEMOGLOBIN [id number] 00:00:00* Test Item Value Reference Range Interpretation Comme nts HEMOGLOBIN A1c (test code = 04531) 6.4 % Dwayne MyersCOMPREHENSIVE METABOLIC [id number] 00:00:00* Test Item Value Reference Range Interpretation Comme nts GLUCOSE (test code = 2217) 126 MG/DL BUN (test code = 2208) 12 MG/DL CREATININE (test code = 2214) 1.24 MG/DL eGFR (2020 CKD-EPI) (test co de = 88561) 53 ML/MIN/1.73 CALC BUN/CREAT (test code = [...] = 2219) 15 U/L Dwayne Bah AustinLIPID [id number] 00:00:00* Test Item Value Reference Range Interpretation Comme nts CHOLESTEROL (test code = 2210) 182 MG/DL TRIGLYCERIDES (test code = 2232) 82 MG/DL HDL CHOLESTEROL (test code = 2220) 50 MG/DL CALC LDL CHOL (test code = 2237) 114 MG/DL RISK RATIO LDL/HDL (test cod e = 2238) 2.28 RATIO Dwayne MyersHEMOGLOBIN [id number] 00:00:00* Test Item Value Reference Range Interpretation Comme nts HEMOGLOBIN A1c (test code = 08938) 6.4 % Dwayne MyersCOMPREHENSIVE METABOLIC [id number] 00:00:00* Test Item Value Reference Range Interpretation Comme nts GLUCOSE (test code = 2217) 126 MG/DL BUN (test code = 2208) 12 MG/DL CREATININE (test code = 2214) 1.24 MG/DL eGFR (2020 CKD-EPI) (test co de = 11443) 53 ML/MIN/1.73 CALC BUN/CREAT (test code = [...] code = 2219) 15 U/L Dwayne MyersLIPID [id number] 00:00:00* Test Item Value Reference Range Interpretation Comme nts CHOLESTEROL (test code = 2210) 182 MG/DL TRIGLYCERIDES (test code = 2232) 82 MG/DL HDL CHOLESTEROL (test code = 2220) 50 MG/DL CALC LDL CHOL (test code = 2237) 114 MG/DL RISK RATIO LDL/HDL (test cod e = 2238) 2.28 RATIO Dwayne MyersHEMOGLOBIN [id number] 00:00:00* Test Item Value Reference Range Interpretation Comme nts HEMOGLOBIN A1c (test code = 85191) 6.4 % Dwayne MyersCOMPREHENSIVE METABOLIC [id number] 00:00:00* Test Item Value Reference Range Interpretation Comme nts GLUCOSE (test code = 2217) 126 MG/DL BUN (test code = 2208) 12 MG/DL CREATININE (test code = 2214) 1.24 MG/DL eGFR (2020 CKD-EPI) (test co de = 63486) 53 ML/MIN/1.73 CALC BUN/CREAT (test code = [...] code = 2219) 15 U/L Dwayne MyersLIPID [id number] 00:00:00* Test Item Value Reference Range Interpretation Comme nts CHOLESTEROL (test code = 2210) 182 MG/DL TRIGLYCERIDES (test code = 2232) 82 MG/DL HDL CHOLESTEROL (test code = 2220) 50 MG/DL CALC LDL CHOL (test code = 2237) 114 MG/DL RISK RATIO LDL/HDL (test cod e = 2238) 2.28 RATIO Dwayne Bah AustinHEMOGLOBIN [id number] 00:00:00* Test Item Value Reference Range Interpretation Comme nts HEMOGLOBIN A1c (test code = 62945) 6.4 % Dwayne Bah AustinCOMPREHENSIVE METABOLIC [id number] 00:00:00* Test Item Value Reference Range Interpretation Comme nts GLUCOSE (test code = 2217) 126 MG/DL BUN (test code = 2208) 12 MG/DL CREATININE (test code = 2214) 1.24 MG/DL eGFR (2020 CKD-EPI) (test co de = 90552) 53 ML/MIN/1.73 CALC BUN/CREAT (test code = [...] = 2219) 15 U/L Dwayne Bah AustinLIPID [id number] 00:00:00* Test Item Value Reference Range Interpretation Comme nts CHOLESTEROL (test code = 2210) 182 MG/DL TRIGLYCERIDES (test code = 2232) 82 MG/DL HDL CHOLESTEROL (test code = 2220) 50 MG/DL CALC LDL CHOL (test code = 2237) 114 MG/DL RISK RATIO LDL/HDL (test cod e = 2238) 2.28 RATIO Dwayne Bah AustinHEMOGLOBIN [id number] 00:00:00* Test Item Value Reference Range Interpretation Comme nts HEMOGLOBIN A1c (test code = 47076) 6.4 % Dwayne Bah AustinCOMPREHENSIVE METABOLIC [id number] 00:00:00* Test Item Value Reference Range Interpretation Comme nts GLUCOSE (test code = 2217) 126 MG/DL BUN (test code = 2208) 12 MG/DL CREATININE (test code = 2214) 1.24 MG/DL eGFR (2020 CKD-EPI) (test co de = 09555) 53 ML/MIN/1.73 CALC BUN/CREAT (test code = [...] code = 2219) 15 U/L Dwayne MyersLIPID [id number] 00:00:00* Test Item Value Reference Range Interpretation Comme nts CHOLESTEROL (test code = 2210) 182 MG/DL TRIGLYCERIDES (test code = 2232) 82 MG/DL HDL CHOLESTEROL (test code = 2220) 50 MG/DL CALC LDL CHOL (test code = 2237) 114 MG/DL RISK RATIO LDL/HDL (test cod e = 2238) 2.28 RATIO Dwayne MyersHEMOGLOBIN [id number] 00:00:00* Test Item Value Reference Range Interpretation Comme nts HEMOGLOBIN A1c (test code = 78577) 6.4 % Dwayne MyersCOMPREHENSIVE METABOLIC [id number] 00:00:00* Test Item Value Reference Range Interpretation Comme nts GLUCOSE (test code = 2217) 126 MG/DL BUN (test code = 2208) 12 MG/DL CREATININE (test code = 2214) 1.24 MG/DL eGFR (2020 CKD-EPI) (test co de = 04539) 53 ML/MIN/1.73 CALC BUN/CREAT (test code = [...] code = 2219) 15 U/L Dwayne MyersLIPID [id number] 00:00:00* Test Item Value Reference Range Interpretation Comme nts CHOLESTEROL (test code = 2210) 182 MG/DL TRIGLYCERIDES (test code = 2232) 82 MG/DL HDL CHOLESTEROL (test code = 2220) 50 MG/DL CALC LDL CHOL (test code = 2237) 114 MG/DL RISK RATIO LDL/HDL (test cod e = 2238) 2.28 RATIO Dwayne MyersHEMOGLOBIN [id number] 00:00:00* Test Item Value Reference Range Interpretation Comme nts HEMOGLOBIN A1c (test code = 03854) 6.4 % Dwayne MyersCOMPREHENSIVE METABOLIC [id number] 00:00:00* Test Item Value Reference Range Interpretation Comme nts GLUCOSE (test code = 2217) 126 MG/DL BUN (test code = 2208) 12 MG/DL CREATININE (test code = 2214) 1.24 MG/DL eGFR (2020 CKD-EPI) (test co de = 04208) 53 ML/MIN/1.73 CALC BUN/CREAT (test code = [...] code = 2219) 15 U/L Dwayne MyersLIPID [id number] 00:00:00* Test Item Value Reference Range Interpretation Comme nts CHOLESTEROL (test code = 2210) 182 MG/DL TRIGLYCERIDES (test code = 2232) 82 MG/DL HDL CHOLESTEROL (test code = 2220) 50 MG/DL CALC LDL CHOL (test code = 2237) 114 MG/DL RISK RATIO LDL/HDL (test cod e = 2238) 2.28 RATIO Dwayne MyersHEMOGLOBIN [id number] 00:00:00* Test Item Value Reference Range Interpretation Comme nts HEMOGLOBIN A1c (test code = 38337) 6.4 % Dwayne MyersCOMPREHENSIVE METABOLIC [id number] 00:00:00* Test Item Value Reference Range Interpretation Comme nts GLUCOSE (test code = 2217) 126 MG/DL BUN (test code = 2208) 12 MG/DL CREATININE (test code = 2214) 1.24 MG/DL eGFR (2020 CKD-EPI) (test co de = 20106) 53 ML/MIN/1.73 CALC BUN/CREAT (test code = [...] code = 2219) 15 U/L Dwayne MyersLIPID [id number] 00:00:00* Test Item Value Reference Range Interpretation Comme nts CHOLESTEROL (test code = 2210) 182 MG/DL TRIGLYCERIDES (test code = 2232) 82 MG/DL HDL CHOLESTEROL (test code = 2220) 50 MG/DL CALC LDL CHOL (test code = 2237) 114 MG/DL RISK RATIO LDL/HDL (test cod e = 2238) 2.28 RATIO Dwayne MyersHEMOGLOBIN [id number] 00:00:00* Test Item Value Reference Range Interpretation Comme nts HEMOGLOBIN A1c (test code = 59196) 6.4 % Dwayne MyersCOMPREHENSIVE METABOLIC [id number] 00:00:00* Test Item Value Reference Range Interpretation Comme nts GLUCOSE (test code = 2217) 126 MG/DL BUN (test code = 2208) 12 MG/DL CREATININE (test code = 2214) 1.24 MG/DL eGFR (2020 CKD-EPI) (test co de = 16428) 53 ML/MIN/1.73 CALC BUN/CREAT (test code = [...] code = 2219) 15 U/L Dwayne MyersLIPID [id number] 00:00:00* Test Item Value Reference Range Interpretation Comme nts CHOLESTEROL (test code = 2210) 182 MG/DL TRIGLYCERIDES (test code = 2232) 82 MG/DL HDL CHOLESTEROL (test code = 2220) 50 MG/DL CALC LDL CHOL (test code = 2237) 114 MG/DL RISK RATIO LDL/HDL (test cod e = 2238) 2.28 RATIO Dwayne MyersHEMOGLOBIN [id number] 00:00:00* Test Item Value Reference Range Interpretation Comme nts HEMOGLOBIN A1c (test code = 45845) 6.4 % Dwayne MyersCOMPREHENSIVE METABOLIC [id number] 00:00:00* Test Item Value Reference Range Interpretation Comme nts GLUCOSE (test code = 2217) 126 MG/DL BUN (test code = 2208) 12 MG/DL CREATININE (test code = 2214) 1.24 MG/DL eGFR (2020 CKD-EPI) (test co de = 34268) 53 ML/MIN/1.73 CALC BUN/CREAT (test code = [...] = 2219) 15 U/L Dwayne Bah AustinLIPID [id number] 00:00:00* Test Item Value Reference Range Interpretation Comme nts CHOLESTEROL (test code = 2210) 182 MG/DL TRIGLYCERIDES (test code = 2232) 82 MG/DL HDL CHOLESTEROL (test code = 2220) 50 MG/DL CALC LDL CHOL (test code = 2237) 114 MG/DL RISK RATIO LDL/HDL (test cod e = 2238) 2.28 RATIO Dwayne MyersHEMOGLOBIN [id number] 00:00:00* Test Item Value Reference Range Interpretation Comme nts HEMOGLOBIN A1c (test code = 81151) 6.4 % Dwayne Bah AustinCOMPREHENSIVE METABOLIC [id number] 00:00:00* Test Item Value Reference Range Interpretation Comme nts GLUCOSE (test code = 2217) 126 MG/DL BUN (test code = 2208) 12 MG/DL CREATININE (test code = 2214) 1.24 MG/DL eGFR (2020 CKD-EPI) (test co de = 22134) 53 ML/MIN/1.73 CALC BUN/CREAT (test code = [...] = 2219) 15 U/L Dwayne Bah AustinLIPID [id number] 00:00:00* Test Item Value Reference Range Interpretation Comme nts CHOLESTEROL (test code = 2210) 182 MG/DL TRIGLYCERIDES (test code = 2232) 82 MG/DL HDL CHOLESTEROL (test code = 2220) 50 MG/DL CALC LDL CHOL (test code = 2237) 114 MG/DL RISK RATIO LDL/HDL (test cod e = 2238) 2.28 RATIO Dwayne MyersHEMOGLOBIN [id number] 00:00:00* Test Item Value Reference Range Interpretation Comme nts HEMOGLOBIN A1c (test code = 38874) 6.4 % Dwayne Bah AustinCOMPREHENSIVE METABOLIC [id number] 00:00:00* Test Item Value Reference Range Interpretation Comme nts GLUCOSE (test code = 2217) 126 MG/DL BUN (test code = 2208) 12 MG/DL CREATININE (test code = 2214) 1.24 MG/DL eGFR (2020 CKD-EPI) (test co de = 85450) 53 ML/MIN/1.73 CALC BUN/CREAT (test code = [...] (test code = 2219) 15 U/L Dwayne MyersCOMPREHENSIVE METABOLIC [id number] 00:00:00* Test Item Value Reference Range Interpretation Comme nts GLUCOSE (test code = 2217) 126 MG/DL BUN (test code = 2208) 12 MG/DL CREATININE (test code = 2214) 1.24 MG/DL eGFR (2020 CKD-EPI) (test co de = 80410) 53 ML/MIN/1.73 CALC BUN/CREAT (test code = [...] (test code = 2219) 15 U/L LIPID [id number] 00:00:00* Test Item Value Reference Range Interpretation Comme nts CHOLESTEROL (test code = 2210) 182 MG/DL TRIGLYCERIDES (test code = 2232) 82 MG/DL HDL CHOLESTEROL (test code = 2220) 50 MG/DL CALC LDL CHOL (test code = 2237) 114 MG/DL RISK RATIO LDL/HDL (test cod e = 2238) 2.28 RATIO HEMOGLOBIN [id number] 00:00:00* Test Item Value Reference Range Interpretation Comme nts HEMOGLOBIN A1c (test code = 79379) 6.4 % LIPID [id number] 00:00:00* Test Item Value Reference Range Interpretation Comme nts CHOLESTEROL (test code = 2210) 182 MG/DL TRIGLYCERIDES (test code = 2232) 82 MG/DL HDL CHOLESTEROL (test code = 2220) 50 MG/DL CALC LDL CHOL (test code = 2237) 114 MG/DL RISK RATIO LDL/HDL (test cod e = 2238) 2.28 RATIO Dwayne MyersHEMOGLOBIN [id number] 00:00:00* Test Item Value Reference Range Interpretation Comme nts HEMOGLOBIN A1c (test code = 22766) 6.4 % Dwayne MyersCOMPREHENSIVE METABOLIC [id number] 00:00:00* Test Item Value Reference Range Interpretation Comme nts GLUCOSE (test code = 2217) 126 MG/DL BUN (test code = 2208) 12 MG/DL CREATININE (test code = 2214) 1.24 MG/DL eGFR (2020 CKD-EPI) (test co de = 14338) 53 ML/MIN/1.73 CALC BUN/CREAT (test code = [...] (test code = 2219) 15 U/L Dwayne MyersCOMPREHENSIVE METABOLIC [id number] 00:00:00* Test Item Value Reference Range Interpretation Comme nts GLUCOSE (test code = 2217) 126 MG/DL BUN (test code = 2208) 12 MG/DL CREATININE (test code = 2214) 1.24 MG/DL eGFR (2020 CKD-EPI) (test co de = 57618) 53 ML/MIN/1.73 CALC BUN/CREAT (test code = [...] = 2219) 15 U/L Dwayne Bah AustinLIPID [id number] 00:00:00* Test Item Value Reference Range Interpretation Comme nts CHOLESTEROL (test code = 2210) 182 MG/DL TRIGLYCERIDES (test code = 2232) 82 MG/DL HDL CHOLESTEROL (test code = 2220) 50 MG/DL CALC LDL CHOL (test code = 2237) 114 MG/DL RISK RATIO LDL/HDL (test cod e = 2238) 2.28 RATIO Dwayne MyersHEMOGLOBIN [id number] 00:00:00* Test Item Value Reference Range Interpretation Comme nts HEMOGLOBIN A1c (test code = 29218) 6.4 % Dwayne Bah AustinLIPID [id number] 00:00:00* Test Item Value Reference Range Interpretation Comme nts CHOLESTEROL (test code = 2210) 182 MG/DL TRIGLYCERIDES (test code = 2232) 82 MG/DL HDL CHOLESTEROL (test code = 2220) 50 MG/DL CALC LDL CHOL (test code = 2237) 114 MG/DL RISK RATIO LDL/HDL (test cod e = 2238) 2.28 RATIO Dwayne MyersCOMPREHENSIVE METABOLIC [id number] 00:00:00* Test Item Value Reference Range Interpretation Comme nts GLUCOSE (test code = 2217) 126 MG/DL BUN (test code = 2208) 12 MG/DL CREATININE (test code = 2214) 1.24 MG/DL eGFR (2020 CKD-EPI) (test co de = 48377) 53 ML/MIN/1.73 CALC BUN/CREAT (test code = [...] code = 2219) 15 U/L Dwayne MyersLIPID [id number] 00:00:00* Test Item Value Reference Range Interpretation Comme nts CHOLESTEROL (test code = 2210) 182 MG/DL TRIGLYCERIDES (test code = 2232) 82 MG/DL HDL CHOLESTEROL (test code = 2220) 50 MG/DL CALC LDL CHOL (test code = 2237) 114 MG/DL RISK RATIO LDL/HDL (test cod e = 2238) 2.28 RATIO Dwayne MyersHEMOGLOBIN [id number] 00:00:00* Test Item Value Reference Range Interpretation Comme nts HEMOGLOBIN A1c (test code = 41473) 6.4 % Dwayne Bah AustinHEMOGLOBIN [id number] 00:00:00* Test Item Value Reference Range Interpretation Comme nts HEMOGLOBIN A1c (test code = 01243) 6.4 % Dwayne Bah AustinCOMPREHENSIVE METABOLIC [id number] 00:00:00* Test Item Value Reference Range Interpretation Comme nts GLUCOSE (test code = 2217) 126 MG/DL BUN (test code = 2208) 12 MG/DL CREATININE (test code = 2214) 1.24 MG/DL eGFR (2020 CKD-EPI) (test co de = 68899) 53 ML/MIN/1.73 CALC BUN/CREAT (test code = [...] = 2219) 15 U/L Dwayne Bah AustinLIPID [id number] 00:00:00* Test Item Value Reference Range Interpretation Comme nts CHOLESTEROL (test code = 2210) 182 MG/DL TRIGLYCERIDES (test code = 2232) 82 MG/DL HDL CHOLESTEROL (test code = 2220) 50 MG/DL CALC LDL CHOL (test code = 2237) 114 MG/DL RISK RATIO LDL/HDL (test cod e = 2238) 2.28 RATIO Dwayne Bah AustinHEMOGLOBIN [id number] 00:00:00* Test Item Value Reference Range Interpretation Comme vivek HEMOGLOBIN A1c (test code = 17285) 6.4 % Dwayne Bah AustinCOMPREHENSIVE METABOLIC [id number] 00:00:00* Test Item Value Reference Range Interpretation Comme nts GLUCOSE (test code = 2217) 126 MG/DL BUN (test code = 2208) 12 MG/DL CREATININE (test code = 2214) 1.24 MG/DL eGFR (2020 CKD-EPI) (test co de = 78567) 53 ML/MIN/1.73 CALC BUN/CREAT (test code = [...] code = 2219) 15 U/L Dwayne MyersLIPID [id number] 00:00:00* Test Item Value Reference Range Interpretation Comme nts CHOLESTEROL (test code = 2210) 182 MG/DL TRIGLYCERIDES (test code = 2232) 82 MG/DL HDL CHOLESTEROL (test code = 2220) 50 MG/DL CALC LDL CHOL (test code = 2237) 114 MG/DL RISK RATIO LDL/HDL (test cod e = 2238) 2.28 RATIO Dwayne MyersHEMOGLOBIN [id number] 00:00:00* Test Item Value Reference Range Interpretation Comme nts HEMOGLOBIN A1c (test code = 92369) 6.4 % Dwayne MyersCOMPREHENSIVE METABOLIC [id number] 00:00:00* Test Item Value Reference Range Interpretation Comme nts GLUCOSE (test code = 2217) 126 MG/DL BUN (test code = 2208) 12 MG/DL CREATININE (test code = 2214) 1.24 MG/DL eGFR (2020 CKD-EPI) (test co de = 18060) 53 ML/MIN/1.73 CALC BUN/CREAT (test code = [...] code = 2219) 15 U/L Dwayne MyersLIPID [id number] 00:00:00* Test Item Value Reference Range Interpretation Comme nts CHOLESTEROL (test code = 2210) 182 MG/DL TRIGLYCERIDES (test code = 2232) 82 MG/DL HDL CHOLESTEROL (test code = 2220) 50 MG/DL CALC LDL CHOL (test code = 2237) 114 MG/DL RISK RATIO LDL/HDL (test cod e = 2238) 2.28 RATIO Dwayne MyersHEMOGLOBIN [id number] 00:00:00* Test Item Value Reference Range Interpretation Comme nts HEMOGLOBIN A1c (test code = 28806) 6.4 % Dwayne Bah LouisC-ARM<1 HR W IMAGES*WW*2022-08-17 13:28:04 [facility] 1970 Sex: FFLUOROSCOPYCLINICAL HISTORY: Surgical procedure Comments: Intraoperative fluoroscopy services were provided. A radiologist was not present for the procedure. Selected images demonstrate bilateral needle placement in the lower lumbar spine. Total fluoroscopy time: 3.8 seconds. Image count: 2IMPRESSION: Fluoroscopyservices provided. Please see separate operative report for detailed findings.Location: [id number] signed by: Dane Ann MD 08/17/2022 1:28 PM [facility] [id number] URINE MONOCLONAL *WW*2022-08-17 13:05:00* Test Item Value Reference Range Interpretation Comme nts PREG UR (test code = PGU) NEGATIVE NEGATIVE [id number] 20:14:57* Test Item Value Reference Range Interpretation Comme nts MAGNESIUM (test code = 3385818174) 1.7 mg/dL 1.7-2.4 Lab Interpretation (test cod e = 00916-1) [facility]2022-[facility]-26 18:53:16* Test Item Value Reference Range Interpretation Comme nts Height (test code = 7296345763) in Weight (test code = 4058030916) lbs Systolic BP (test code = 1628820241) mmHg Diastolic BP (test code = 2759742738) mmHg Heart Rate (test code = 2745964692) bpm BSA (test code = 4341757088) 2.00 m2 Radiology Study observation (narrative) (test code = 56342-9) LUCILLE (test code = LUCILLE) ?Left?Ventricle: Left [...] was performed using 2D. [facility] Lake[facility]-TERMINAL [id number] 03:58:31* Test Item Value Reference Range Interpretation Comme nts NT-proBNP (test code = 5196544982) 580 pg/mL See_Comment H [Automated message] The system which generated this result transmitted reference range: <=125. The reference range was not used to interpret this result as normal/abnormal. LUCILLE (test code = LUCILLE) Biotin has been reported to cause a negative bias, interpret results relative to patient's use of biotin. Lab Interpretation (test code = 72403-3) Abnormal [facility] LakeTROPONIN [id number] 03:21:06* Test Item Value Reference Range Interpretation Comments TROPONIN I (test code = 1791015724) 0.013 ng/mL See_Comment [Automated message] The system [...] of biotin. Lab Interpretation (test code = 38537-9) Normal [facility] LakePREGNANCY TEST, [id number] 03:20:56* Test Item Value Reference Range Interpretation Comme nts PREG SERUM (test code = 4941008592) Negative LUCILLE (test code = LUCILLE) Less than 10 IU/L. ?If low titer or ectopic is suspected, resubmit specimen in 48-72 hours. [facility]. METABOLIC PANEL (44678)2022-07-26 03:09:22* Test Item Value Reference Range Interpretation Comme nts NA (test code = 5235914730) 137 mmol/L 135-145 K (test code = 4173260225) 4.5 mmol/L 3.5-5.0 CL (test code = 2765984617) 106 mmol/L 98-108 CO2 TOTAL (test code = 4778411120) 21 mmol/L 23-31 L AGAP (test code = 1494502206) 2-16 BUN (test code = 7337579060) 19 mg/dL 7-23 GLUCOSE (test code = 0739533551) 154 mg/dL 70-110 H CREATININE (test code = 9040548211) 0.97 mg/dL 0.50-1.04 TOTAL BILI (test code = 6308423288) 0.3 mg/dL 0.1-1.1 CALCIUM (test code = 2745558491) 9.6 mg/dL 8.6-10.6 T PROTEIN (test code = 0898612103) 6.8 g/dL 6.3-8.2 ALBUMIN (test code = 0302781374) 4.1 g/dL 3.5-5.0 ALK PHOS (test code = 2997075674) 144 U/L 34-122 H ALTv (test code = 1742-6) 41 U/L 5-35 H AST(SGOT) (test code = 5836605884) 24 U/L 13-40 eGFR (test code = 2470100117) mL/min/1.73m2 LUCILLE (test code = LUCILLE) Association [...] imaging tests). Lab Interpretation (test code = 67692-9) Abnormal [facility] LakeD-[id number] 03:06:05* Test Item Value Reference Range Interpretation Comments D-DIMER (test code = 2533489124) See_Comment H [Automated message] The system which [...] a diagnosis. Lab Interpretation (test code = 87993-0) Abnormal [facility] WITH [id number] 02:34:21* Test Item Value Reference Range Interpretation Comme nts WBC (test code = 6690-2) See_Comment H [Automated [employer]] The system which generated this result transmitted [...] 32.2 g/dL 31.6-35.1 RDW-SD (test code = 38046-6) 48.4 fL 39.0-49.9 RDW-CV (test code = 788-0) 16.6 % 12.0-15.5 H PLT (test code = 777-3) See_Comment [Automated messa ge] The system which generated this result transmitted reference range: 166 - 358 10*3/?L. The reference range was not used to interpret this result as normal/abnormal. MPV (test code = 99669-2) 10.4 fL 9.5-12.9 NRBC/100 WBC (test code = 1181753097) See_Comment [Automated [employer] ssage] The system which generated this result transmitted reference range: 0.0 - 10.0 /100 WBCs. The reference range was not used to interpret this result as normal/abnormal. NRBC x10^3 (test code = 9457005869) See_Comment [Automated messa ge] The system which generated this result transmitted reference range: 10*3/?L. The reference range was not used to interpret this result as normal/abnormal. GRAN MAT (NEUT) % (test code = 770-8) 85.4 % IMM GRAN % (test code = 3035807284) 2.00 % LYMPH % (test code = 736-9) 9.9 % MONO % (test code = 5905-5) 1.9 % EOS % (test code = 713-8) 0.3 % BASO % (test code = 706-2) 0.5 % GRAN MAT x10^3(ANC) (test code = 9702832738) 9.84 10*3/uL 1.88-7.09 H IMM GRAN x10^3 (test code = 3959503971) 0.23 10*3/uL 0.00-0.06 H LYMPH x10^3 (test code = 731-0) 1.14 10*3/uL 1.32-3.29 L MONO x10^3 (test code = 742-7) 0.22 10*3/uL 0.33-0.92 L EOS x10^3 (test code = 711-2) 0.03 10*3/uL 0.03-0.39 BASO x10^3 (test code = 704-7) 0.06 10*3/uL 0.01-0.07 Lab Interpretation (test code = 75804-8) Abnormal [facility] LakePOCT [id number] 02:25:00* Test Item Value Reference Range Interpretation Comme nts POCT PREG (test code = 1605) Negative On board controls acceptable with C Line (test code = 3574) Present POCT PREG LOT # (test code = 3575) [id number] POCT PREG TEST DATE ( test code = 3576) 12/02/2023 Lab Interpretation (test cod e = 29688-8) Normal [facility] LakePREGNANCY URINE MONOCLONAL *WW*2022-07-20 14:10:00* Test Item Value Reference Range Interpretation Comme nts PREG UR (test code = PGU) NEGATIVE NEGATIVE Troponin [id number] 11:14:56* Test Item Value Reference Range Interpretation Comments TROPONIN I (test code = 5524928794) 0.035 ng/mL See_Comment H Hemolyzed specimen [Automated [...] of biotin. Lab Interpretation (test code = 99130-9) Abnormal [facility] LakeDIRECT STREP GROUP [id number] 10:18:00* Test Item Value Reference Range Interpretation Comme nts Culture Observations (test code = COB1) NO BETA HEMOLYTIC STREPTOCOCCUS ISOLATED Direct Exam (test code = DE3) NEGATIVE FOR STREP A ANTIGEN BLOOD [id number] 07:35:00* Test Item Value Reference Range Interpretation Comments Culture Observations (test code = COB1) POSITIVE BLOOD CULTURE Culture Observations (test code = COB2) 1 OF 4 BOTTLES Isolate 1 (test code = ISO1) Coagulase negative staphylococcus POSSIBLE CONTAMINANTIF SUSCEPTIBILITY NEEDED, PLEASE NOTIFY MICRO WITHIN [address] CHEST W/O [id number] 21:52:03 [facility]ENTER[facility]E [facility]DONEZ : 1970 Sex: FEXAMINATION:CTCHEST [...] Fidencio Thurston MD 06/23/2022 9:52 PM CDT [id number] 21:26:00* Test Item Value Reference Range Interpretation Comme [facility] PROCALCITONIN (test code = PCT) 0.13 ng/mL 0.00-0.24 PROCALCITONIN REF (test code = PCTH) PROCALCITONIN REFERENCE RANGE < 0.25 ng/mL suggests viral infection on day of admission 0.25-0.5 ng/mL young zone >0.5 ng/mL is highly suggestive of bacterial infection BRAIN NATRIURETIC [id number] 21:04:00* Test Item Value Reference Range Interpretation Comme [facility] BNP (test code = A74) 24 pg/mL See_Comment [Automated [employer]] The system which generated this result transmitted reference range: <=100. The reference range was not used to interpret this result as normal/abnormal. DIRECT INFLUENZA A AND B [id number] 21:00:00* Test Item Value Reference Range Interpretation [...] the FDA and the [employer] of the [place] (CAP) are more stringent than those required for this test. Therefore, the result should be interpreted with caution and close attention to other clinical and epidemiological data COMPREHENSIVE METABOLIC [id number] 20:46:00* Test Item Value Reference Range Interpretation [...] code = 31A) 68 IU/L 10-49 H [id number] 20:46:00* Test Item Value Reference Range Interpretation Comme nts MAGNESIUM (test code = 48A) 2.1 mg/dL 1.6-2.6 TROPONIN [id number] 20:46:00* Test Item Value Reference Range Interpretation Comme nts TROPONIN I (test code = A84) 8.36 pg/mL 0.00-45.20 CBC WITH [id number] 20:44:00* Test Item Value Reference Range Interpretation [...] MICRO) 1+ NONE A PRO TIME AND [id number] 20:43:00* Test Item Value Reference Range Interpretation [...] or LMW Heparin. Order Code is ANTI-XA [id number] 20:43:00* Test Item Value Reference Range Interpretation Comme nts D-DIMER (test code = DDI) 286 ng/mL D-DU 0-234 H D-DIMER COMMENT (test code = DDCOM) *Level to rule out DVT or PE: <235 ng/mL D-DU* SERUM [id number] 20:40:00* Test Item Value Reference Range Interpretation Comme nts PREG SRM (test code = PGS) NEGATIVE NEGATIVE LACTIC [id number] 20:17:00* Test Item Value Reference Range Interpretation Comme nts LACTIC ACD (test code = LA) 0.9 mmol/L 0.4-2.0 XR CHEST 1 VIEW [id number] 20:05:47 [facility] 1970 Sex: FLocation code: J1Jirev 1 viewIndication: Dyspnea.Comparison: 06/21/2022Findings:The heart and mediastinum are not remarkable.Costophrenic angles are clear.Elevation of the right hemidiaphragm and small right basilar atelectasis.ACDF lower cervical spineImpression:1. No change. Elevation the right hemidiaphragm and small right basilar atelectasisElectronically signed by: Bucky Keith MD 06/23/2022 8:05 PM CDT JVLTH *WW*2022-06-22 05:27:00* Test Item Value Reference Range [...] H CT CHEST W/ CONTRAST *WW*2022-06-21 22:47:01 [facility] : 1970 Sex: FEXAMINATION:CTCHEST W/ [...] code = A49) 3.4 ng/mL See_Comment [Automated [employer]] The system which generated this result transmitted [...] the FDA and the [employer] of the [place] [employer] (CAP) are more stringent than those required for this test. Therefore, the result should be interpreted with caution and close attention to other clinical and epidemiological data DIRECT INFLUENZA A AND B [id number] 20:50:00* Test Item Value Reference Range Interpretation Comme nts Direct Exam (test code = DE3) PRESUMPTIVE NEGATIVE FOR THE PRESENCE OF INFLUENZA ANTIGEN XR CHEST 1 VIEW PORTABLE *WW*2022-06-21 20:39:36 [facility] 1970 Sex: FEXAMINATION:XRCHEST [...] bilateral pneumonia.2. Small pleural effusions.Electronically signed by: Fidnecio Thurston MD 06/21/2022 8:39 PM CDT [id number] NATRIURETIC PEPTIDE *WW* 2022-06-21 20:38:00* Test Item Value Reference Range Interpretation Comme nts BNP (test code = A74) 22 pg/mL See_Comment [Automated [employer] ge] The system which generated this result transmitted reference range: <=100. The reference range was not used to interpret this result as normal/abnormal. SERUM MONOCLONAL *WW*2022-06-21 20:27:00* Test Item Value Reference Range Interpretation Comme nts PREG SRM (test code = PGS) NEGATIVE NEGATIVE C-ARM<1 HR W IMAGES*WW*2022-06-15 16:54:53 [facility] 1970 Sex: FFluoroscopyLocation Code: [id number] HISTORY: Surgical procedureComments: Fluoroscopy was provided during [...] NEGATIVE NEGATIVE C-ARM<1 HR W IMAGES*WW*2022-05-12 08:26:58 [facility] : 1970 Sex: FClinical [...] Alexey Ott MD 05/12/2022 8:26 AM CDT [id number] URINE MONOCLONAL *WW*2022-05-11 12:51:00* Test Item Value Reference Range Interpretation Comme nts PREG UR (test code = PGU) NEGATIVE NEGATIVE C-ARM<1 HR W IMAGES*WW*2022-04-06 16:03:45 [facility] : 1970 Sex: FFluoroscopyLocation Code: [id number] HISTORY: Neck painComments: Fluoroscopy was provided during bilateral medial branch block. Approximately fluoroscopy time was 5.0 seconds. 2 fluoroscopic spot images were taken.IMPRESSION: Fluoroscopy services provided. Please see operative report for full details.Electronically signed by: Iglesia Garvey MD 04/06/2022 4:03 PM CDT [id number] URINE MONOCLONAL *WW*2022-04-06 12:39:00* Test Item Value Reference Range Interpretation Comme nts PREG UR (test code = PGU) NEGATIVE NEGATIVE Basic Metabolic Panel (NA, K, CL, CO2, GLUCOSE, BUN, CREATININE, CA)2022-02-26 09:48:31* Test Item Value Reference Range Interpretation Comme nts NA (test code = 7885720903) 143 mmol/L 135-145 K (test code = 7665422292) 3.5 mmol/L 3.5-5.0 CL (test code = 9797424596) 114 mmol/L 98-108 H CO2 TOTAL (test code = 6840016788) 24 mmol/L 23-31 AGAP (test code = 7006660062) 2-16 BUN (test code = 3128339137) 9 mg/dL 7-23 GLUCOSE (test code = 2771462334) 96 mg/dL 70-110 CREATININE (test code = 4679244889) 0.92 mg/dL 0.50-1.04 CALCIUM (test code = 0915182733) 8.1 mg/dL 8.6-10.6 L eGFR (test code = 4014985466) mL/min/1.73m2 LUCILLE (test code = LUCILLE) Association [...] imaging tests). Lab Interpretation (test code = 01556-5) Abnormal [facility] LakeCB with [id number] 09:36:32* Test Item Value Reference Range Interpretation Comme nts WBC (test code = 6690-2) See_Comment [Automated [employer]] The system which generated this result transmitted reference range: 4.30 - 11.10 10*3/?L. The reference range was not used to interpret this result as normal/abnormal. RBC (test code = 789-8) See_Comment [Automated [employer]] The system which generated this result transmitted [...] g/dL 31.6-35.1 L RDW-SD (test code = 84403-6) 46.8 fL 39.0-49.9 RDW-CV (test code = 788-0) 16.7 % 12.0-15.5 H PLT (test code = 777-3) See_Comment [Automated [employer]] The system which generated this result transmitted reference range: 166 - 358 10*3/?L. The reference range was not used to interpret this result as normal/abnormal. MPV (test code = 71125-2) 10.8 fL 9.5-12.9 NRBC/100 WBC (test code = [id number]) See_Comment [Automated me ssage] The system which generated this result transmitted reference range: 0.0 - 10.0 /100 WBCs. The reference range was not used to interpret this result as normal/abnormal. NRBC x10^3 (test code = [id number]) <0.01 See_Comment [Automated messa ge] The system which generated this result transmitted reference range: 10*3/?L. The reference range was not used to interpret this result as normal/abnormal. GRAN MAT (NEUT) % (test code = 770-8) 54.4 % IMM GRAN % (test code = [id number]) 0.20 % LYMPH % (test code = 736-9) 31.5 % MONO % (test code = 5905-5) 8.7 % EOS % (test code = 713-8) 3.2 % BASO % (test code = 706-2) 2.0 % GRAN MAT x10^3(ANC) (test code = 6593577639) 2.69 10*3/uL 1.88-7.09 IMM GRAN x10^3 (test code = 7216399763) <0.03 0.00-0.06 LYMPH x10^3 (test code = 731-0) 1.56 10*3/uL 1.32-3.29 MONO x10^3 (test code = 742-7) 0.43 10*3/uL 0.33-0.92 EOS x10^3 (test code = 711-2) 0.16 10*3/uL 0.03-0.39 BASO x10^3 (test code = 704-7) 0.10 10*3/uL 0.01-0.07 H Lab Interpretation (test code = 64474-2) [facility] [id number] 04:00:15* Test Item Value Reference Range Interpretation Comments TROPONIN I (test code = 6922807152) 0.004 ng/mL See_Comment [Automated message] The system [...] of biotin. Lab Interpretation (test code = 70562-2) Normal [facility] EYF-[id number] 04:00:15* Test Item Value Reference Range Interpretation Comme nts NT-proBNP (test code = 4792407715) 42 pg/mL See_Comment [Automated message] The system which generated this result transmitted reference range: <=125. The reference range was not used to interpret this result as normal/abnormal. LUCILLE (test code = LUCILLE) Biotin has been reported to cause a negative bias, interpret results relative to patient's use of biotin. Lab Interpretation (test code = 11095-7) Normal [facility] MET[facility]OL[facility] PANEL ([id number])2022-02-26 03:48:34* Test Item Value Reference Range Interpretation Comme nts NA (test code = 3272527417) 142 mmol/L 135-145 K (test code = 7713086961) 3.6 mmol/L 3.5-5.0 Slight hemolysis CL (test code = 9930117000) 109 mmol/L 98-108 H CO2 TOTAL (test code = 9091399068) 26 mmol/L 23-31 AGAP (test code = 5232206165) 2-16 BUN (test code = 7583941086) 10 mg/dL 7-23 Slight hemolysis GLUCOSE (test code = 0184912549) 84 mg/dL 70-110 CREATININE (test code = 0473086903) 0.99 mg/dL 0.50-1.04 TOTAL BILI (test code = 9560934958) 0.4 mg/dL 0.1-1.1 CALCIUM (test code = 4211718600) 8.9 mg/dL 8.6-10.6 T PROTEIN (test code = 9130049559) 6.5 g/dL 6.3-8.2 ALBUMIN (test code = 8163018030) 4.0 g/dL 3.5-5.0 ALK PHOS (test code = 8800811306) 71 U/L 34-122 Slight hemolysis ALTv (test code = 1742-6) 18 U/L 5-35 AST(SGOT) (test code = 3551773725) 25 U/L 13-40 Slight hemolysis eGFR (test code = 2997202758) mL/min/1.73m2 LUCILLE (test code = LUCILLE) Association [...] imaging tests). Lab Interpretation (test code = 02008-9) [facility]normal [facility] Lake[facility]2022-[facility] 03:48:34* Test Item Value Reference Range Interpretation Comme nts LIPASE (test code = 1239969339) 166 U/L 0-220 Lab Interpretation (test cod e = 18332-5) Normal [facility] WITH [id number] 03:34:33* Test Item Value Reference Range Interpretation [...] g/dL 31.6-35.1 L RDW-SD (test code = 24402-4) 47.2 fL 39.0-49.9 RDW-CV (test code = 788-0) 16.8 % 12.0-15.5 H PLT (test code = 777-3) See_Comment [Automated messa ge] The system which generated this result transmitted reference range: 166 - 358 10*3/?L. The reference range was not used to interpret this result as normal/abnormal. MPV (test code = 56542-2) 10.3 fL 9.5-12.9 NRBC/100 WBC (test code = 7687042245) See_Comment [Automated me ssage] The system which generated this result transmitted reference range: 0.0 - 10.0 /100 WBCs. The reference range was not used to interpret this result as normal/abnormal. NRBC x10^3 (test code = 1621408405) <0.01 See_Comment [Automated messa ge] The system which generated this result transmitted reference range: 10*3/?L. The reference range was not used to interpret this result as normal/abnormal. GRAN MAT (NEUT) % (test code = 770-8) 51.0 % IMM GRAN % (test code = 6402343954) 0.20 % LYMPH % (test code = 736-9) 31.6 % MONO % (test code = 5905-5) 10.7 % EOS % (test code = 713-8) 4.3 % BASO % (test code = 706-2) 2.2 % GRAN MAT x10^3(ANC) (test code = 4523927555) 2.59 10*3/uL 1.88-7.09 IMM GRAN x10^3 (test code = 0237925953) <0.03 0.00-0.06 LYMPH x10^3 (test code = 731-0) 1.60 10*3/uL 1.32-3.29 MONO x10^3 (test code = 742-7) 0.54 10*3/uL 0.33-0.92 EOS x10^3 (test code = 711-2) 0.22 10*3/uL 0.03-0.39 BASO x10^3 (test code = 704-7) 0.11 10*3/uL 0.01-0.07 H Lab Interpretation (test code = 29497-4) [facility]normal [facility]MAR[facility]AA[facility]NA[facility] [id number] 06:03:26* Test Item Value Reference Range Interpretation Comments TROPONIN I (test code = 2925868695) 0.003 ng/mL See_Comment [Automated message] The system [...] of biotin. Lab Interpretation (test code = 63593-8) Normal [facility] LakeTROPONIN [id number] 03:56:22* Test Item Value Reference Range Interpretation Comments TROPONIN I (test code = 4443815883) 0.003 ng/mL See_Comment [Automated message] The system [...] of biotin. Lab Interpretation (test code = 11621-7) Normal [facility] Lake[facility] [id number]-XOF4685-07-23 03:53:00* Test Item Value Reference Range Interpretation Comme nts NT-proBNP (test code = 8432471484) 143 pg/mL See_Comment H [Automated message] The system which generated this result transmitted reference range: <=125. The reference range was not used to interpret this result as normal/abnormal. LUCILLE (test code = LUCILLE) Biotin has been reported to cause a negative bias, interpret results relative to patient's use of biotin. Lab Interpretation (test code = 92122-0) [facility]normal [facility] (49351)2022-02-23 03:45:59* Test Item Value Reference Range Interpretation Comme nts NA (test code = 6548963230) 140 mmol/L 135-145 K (test code = 5294907842) 4.0 mmol/L 3.5-5.0 CL (test code = 2116731673) 110 mmol/L 98-108 H CO2 TOTAL (test code = 4113273535) 17 mmol/L 23-31 L AGAP (test code = 1635313753) 2-16 BUN (test code = 7623722345) 14 mg/dL 7-23 GLUCOSE (test code = 8135637668) 105 mg/dL 70-110 CREATININE (test code = 7133778873) 1.03 mg/dL 0.50-1.04 TOTAL BILI (test code = 5458548193) 0.3 mg/dL 0.1-1.1 CALCIUM (test code = 2668610715) 8.9 mg/dL 8.6-10.6 T PROTEIN (test code = 5127012415) 6.1 g/dL 6.3-8.2 L ALBUMIN (test code = 8294792588) 3.8 g/dL 3.5-5.0 ALK PHOS (test code = 9021582261) 91 U/L 34-122 ALTv (test code = 1742-6) 19 U/L 5-35 AST(SGOT) (test code = 5124600277) 21 U/L 13-40 eGFR (test code = 3752068835) mL/min/1.73m2 LUCILLE (test code = LUCILLE) Association [...] imaging tests). Lab Interpretation (test code = 45598-3) Abnormal [facility] WITH [id number] 03:23:19* Test Item Value Reference Range Interpretation Comme nts WBC (test code = 6690-2) See_Comment [Automated [employer] ge] The system which generated this result transmitted reference range: 4.30 - 11.10 10*3/?L. The reference range was not used to interpret this result as normal/abnormal. RBC (test code = 789-8) See_Comment [Automated [employer] ge] The system which generated this result [...] g/dL 31.6-35.1 L RDW-SD (test code = 02056-1) 45.7 fL 39.0-49.9 RDW-CV (test code = 788-0) 16.6 % 12.0-15.5 H PLT (test code = 777-3) See_Comment [Automated [employer] ge] The system which generated this result transmitted reference range: 166 - 358 10*3/?L. The reference range was not used to interpret this result as normal/abnormal. MPV (test code = 79148-9) 10.9 fL 9.5-12.9 NRBC/100 WBC (test code = 0853387393) See_Comment [Automated [employer] ssage] The system which generated this result transmitted reference range: 0.0 - 10.0 /100 WBCs. The reference range was not used to interpret this result as normal/abnormal. NRBC x10^3 (test code = 0337310544) <0.01 See_Comment [Automated messa ge] The system which generated this result transmitted reference range: 10*3/?L. The reference range was not used to interpret this result as normal/abnormal. GRAN MAT (NEUT) % (test code = 770-8) 53.8 % IMM GRAN % (test code = 8517302431) 0.20 % LYMPH % (test code = 736-9) 34.0 % MONO % (test code = 5905-5) 7.9 % EOS % (test code = 713-8) 2.6 % BASO % (test code = 706-2) 1.5 % GRAN MAT x10^3(ANC) (test code = 3046830394) 3.25 10*3/uL 1.88-7.09 IMM GRAN x10^3 (test code = 8256768578) <0.03 0.00-0.06 LYMPH x10^3 (test code = 731-0) 2.06 10*3/uL 1.32-3.29 MONO x10^3 (test code = 742-7) 0.48 10*3/uL 0.33-0.92 EOS x10^3 (test code = 711-2) 0.16 10*3/uL 0.03-0.39 BASO x10^3 (test code = 704-7) 0.09 10*3/uL 0.01-0.07 H Lab Interpretation (test code = 67610-2) Abnormal [facility], THIRD QUZQHXZVBM7018-06-78 09:21:37* Test Item Value Reference Range Interpretation Comme nts TSH, THIRD GENERATION (test code = 2821) TEST NOT PERFORMED UIU/ML 0.400-4.100 TESTING CANNOT BE PERFORMED DUE TO AN INTERFERING SUBSTANCE. CHARGES DELETED. XWMEUVCZKKPU3646-70-77 09:21:37* Test Item Value Reference Range Interpretation [...] . . . . . NG/ML 58.70-214.00 HABBMXWOH4044-91-65 09:21:37* Test Item Value Reference Range Interpretation Comme nts ESTRADIOL (test code = 2505) TEST NOT PERFORMED PG/ML SEE BELOW TESTING CANNOT BE PERFORMED DUE TO AN INTERFERING SUBSTANCE. CHARGES DELETED. UNLESS OTHERWISE INDICATED, ALL TESTING PERFORMED [employer] [facility] [employer], [place]. [address] [place] [address] HUMAN PERFORMANCE TECHNOLOGIST: SADIQ VANEGAS M.D. CLIA NUMBER [id number] [facility] [place]. [id number] COMPREHENSIVE METABOLIC [id number] 09:21:22* Test Item Value Reference Range Interpretation Comme nts GLUCOSE (test code = 2217) TEST NOT PERFORMED MG/DL 70-99 TESTING CANNOT BE PERFORMED DUE TO AN INTERFERING SUBSTANCE. CHARGES DELETED. BUN (test code = 2208) TEST NOT PERFORMED MG/DL 6-20 CREATININE (test code = 2214) TEST NOT PERFORMED MG/DL 0.60-1.30 eGFR (2020 CKD-EPI) (test code = 44106) TEST NOT PERFORMED ML/MIN/1.73 >60 CALC BUN/CREAT [...] 8.5-10.5 PROTEIN, TOTAL (test code = 222) TEST NOT PERFORMED G/DL 6.1-8.3 ALBUMIN (test code = 2200) TEST NOT PERFORMED G/DL 3.5-5.2 CALC GLOBULIN (test code = 2240) TEST NOT PERFORMED G/DL 1.9-3.7 CALC A/G RATIO (test code = 2234) TEST NOT PERFORMED RATIO 1.0-2.6 BILIRUBIN, TOTAL (test code = 2207) TEST NOT PERFORMED MG/DL See_Comment [Automated message] The system which generated this result transmitted reference range: <=1.2. The reference range was not used to interpret this result as normal/abnormal. ALKALINE PHOSPHATASE (test code = 4) TEST NOT PERFORMED U/L 40-130 AST (test code = 2218) TEST NOT PERFORMED U/L 9-40 ALT (test code = 2219) TEST NOT PERFORMED U/L 5-40 COMPREHENSIVE METABOLIC [id number] 00:00:00* Test Item Value Reference Range Interpretation Comme nts GLUCOSE (test code = 2217) TEST NOT PERFORMED MG/DL BUN (test code = 8) TEST NOT PERFORME D MG/DL CREATININE (test code = 2214) TEST NOT PERFORMED MG/DL eGFR (2020 CKD-EPI) (test code = 41278) TEST NOT PERFORMED ML/MIN/1.73 CALC BUN/CREAT (test [...] 2219) TEST NOT PERFORME D U/L Dwayne MyersRfgtigSMPQFPZGCNPP3413-48-38 00:00:00* Test Item Value Reference Range Interpretation Comme nts PROGESTERONE (test code = 2790) TEST NOT PERFORMED NG/ML Dwayne MyersTrztdvZOWDGRPEV9932-23-15 00:00:00* Test Item Value Reference Range Interpretation Comme nts ESTRADIOL (test code = 2505) TEST NOT PERFORMED PG/ML Dwayne MyersSvqvgfRNU6618-53-12 00:00:00* Test Item Value Reference Range Interpretation Comme nts TSH, THIRD GENERATION (test code = 2821) TEST NOT PERFORMED UIU/ML Dwayne MyersCOMPREHENSIVE METABOLIC SXUXS6463-19-12 00:00:00* Test Item Value Reference Range Interpretation Comme nts GLUCOSE (test code = 2217) TEST NOT PERFORMED MG/DL BUN (test code = 2208) TEST NOT PERFORME D MG/DL CREATININE (test code = 2214) TEST NOT PERFORMED MG/DL eGFR (2020 CKD-EPI) (test code = 87514) TEST NOT PERFORMED ML/MIN/1.73 CALC BUN/CREAT (test [...] 2219) TEST NOT PERFORME D U/L Dwayne MyersJehqquGVFXCNGTHJLG0997-05-20 00:00:00* Test Item Value Reference Range Interpretation Comme nts PROGESTERONE (test code = 2790) TEST NOT PERFORMED NG/ML Dwayne Bah TyveznQHIKKCBSD1930-30-09 00:00:00* Test Item Value Reference Range Interpretation Comme nts ESTRADIOL (test code = 2505) TEST NOT PERFORMED PG/ML Dwayne Bah TgfjwwANN9220-38-31 00:00:00* Test Item Value Reference Range Interpretation Comme nts TSH, THIRD GENERATION (test code = 2821) TEST NOT PERFORMED UIU/ML Dwayne MyersCOMPREHENSIVE METABOLIC ZDWGX5823-50-14 00:00:00* Test Item Value Reference Range Interpretation Comme nts GLUCOSE (test code = 2217) TEST NOT PERFORMED MG/DL BUN (test code = 2208) TEST NOT PERFORME D MG/DL CREATININE (test code = 2214) TEST NOT PERFORMED MG/DL eGFR (2020 CKD-EPI) (test code = 01294) TEST NOT PERFORMED ML/MIN/1.73 CALC BUN/CREAT (test [...] 2219) TEST NOT PERFORME D U/L Dwayne MyersKnvwtoYKHHLHLXBAAN2991-68-44 00:00:00* Test Item Value Reference Range Interpretation Comme nts PROGESTERONE (test code = 2790) TEST NOT PERFORMED NG/ML Dwayne MyersXvyxdlBMGIYJVGW0847-39-65 00:00:00* Test Item Value Reference Range Interpretation Comme nts ESTRADIOL (test code = 2505) TEST NOT PERFORMED PG/ML Dwayne MyersMmkvkzUNC2392-24-61 00:00:00* Test Item Value Reference Range Interpretation Comme nts TSH, THIRD GENERATION (test code = 2821) TEST NOT PERFORMED UIU/ML Dwayne Bah AustinCOMPREHENSIVE METABOLIC QMEWT9816-42-16 00:00:00* Test Item Value Reference Range Interpretation Comme nts GLUCOSE (test code = 2217) TEST NOT PERFORMED MG/DL BUN (test code = 2208) TEST NOT PERFORME D MG/DL CREATININE (test code = 2214) TEST NOT PERFORMED MG/DL eGFR (2020 CKD-EPI) (test code = 69571) TEST NOT PERFORMED ML/MIN/1.73 CALC BUN/CREAT (test [...] TEST NOT PERFORME D U/L Dwayne Bah NkwraxSCVDUQTNQPKF8615-25-10 00:00:00* Test Item Value Reference Range Interpretation Comme nts PROGESTERONE (test code = 2790) TEST NOT PERFORMED NG/ML Dwayne Bah VrwknrLSKEPDSBQ5591-50-95 00:00:00* Test Item Value Reference Range Interpretation Comme nts ESTRADIOL (test code = 2505) TEST NOT PERFORMED PG/ML Dwayne Bah PlurrfQEP5215-97-26 00:00:00* Test Item Value Reference Range Interpretation Comme nts TSH, THIRD GENERATION (test code = 2821) TEST NOT PERFORMED UIU/ML Dwayne MyersCOMPREHENSIVE METABOLIC BVMLD6913-17-60 00:00:00* Test Item Value Reference Range Interpretation Comme nts GLUCOSE (test code = 2217) TEST NOT PERFORMED MG/DL BUN (test code = 2208) TEST NOT PERFORME D MG/DL CREATININE (test code = 2214) TEST NOT PERFORMED MG/DL eGFR (2020 CKD-EPI) (test code = 44157) TEST NOT PERFORMED ML/MIN/1.73 CALC BUN/CREAT (test [...] 2219) TEST NOT PERFORME D U/L Dwayne MyersQagfdxGWKJIFODLJSJ6548-47-82 00:00:00* Test Item Value Reference Range Interpretation Comme nts PROGESTERONE (test code = 2790) TEST NOT PERFORMED NG/ML Dwayne Bah WffwyfSVILMWMTK9917-10-54 00:00:00* Test Item Value Reference Range Interpretation Comme nts ESTRADIOL (test code = 2505) TEST NOT PERFORMED PG/ML Dwayne Bah UxiifrLHG6757-72-56 00:00:00* Test Item Value Reference Range Interpretation Comme nts TSH, THIRD GENERATION (test code = 2821) TEST NOT PERFORMED UIU/ML Dwayne MyersCOMPREHENSIVE METABOLIC VLIWA7521-21-03 00:00:00* Test Item Value Reference Range Interpretation Comme nts GLUCOSE (test code = 2217) TEST NOT PERFORMED MG/DL BUN (test code = 2208) TEST NOT PERFORME D MG/DL CREATININE (test code = 2214) TEST NOT PERFORMED MG/DL eGFR (2020 CKD-EPI) (test code = 09068) TEST NOT PERFORMED ML/MIN/1.73 CALC BUN/CREAT (test [...] PERFORME D U/L ALT (test code = 221) TEST NOT PERFORME D U/L Dwayne MyersSjvrjuIBDUWZDVZIYU2408-16-05 00:00:00* Test Item Value Reference Range Interpretation Comme nts PROGESTERONE (test code = 2790) TEST NOT PERFORMED NG/ML Dwayne MyersEnhfrhSHDCWIMVG0236-11-95 00:00:00* Test Item Value Reference Range Interpretation Comme nts ESTRADIOL (test code = 2505) TEST NOT PERFORMED PG/ML Dwayne Bah UdeitsYPN5498-93-06 00:00:00* Test Item Value Reference Range Interpretation Comme nts TSH, THIRD GENERATION (test code = 2821) TEST NOT PERFORMED UIU/ML Dwayne MyersCOMPREHENSIVE METABOLIC UOMMI0227-88-43 00:00:00* Test Item Value Reference Range Interpretation Comme nts GLUCOSE (test code = 2217) TEST NOT PERFORMED MG/DL BUN (test code = 2208) TEST NOT PERFORME D MG/DL CREATININE (test code = 2214) TEST NOT PERFORMED MG/DL eGFR (2020 CKD-EPI) (test code = 05990) TEST NOT PERFORMED ML/MIN/1.73 CALC BUN/CREAT (test [...] 2219) TEST NOT PERFORME D U/L Dwayne MyersArdpaiUJXDREMONIOU4993-37-00 00:00:00* Test Item Value Reference Range Interpretation Comme nts PROGESTERONE (test code = 2790) TEST NOT PERFORMED NG/ML Dwayne MyersUwegpdBTGGBIQQK3444-24-46 00:00:00* Test Item Value Reference Range Interpretation Comme nts ESTRADIOL (test code = 2505) TEST NOT PERFORMED PG/ML Dwayne Bah PtnpuiGLF9549-11-52 00:00:00* Test Item Value Reference Range Interpretation Comme nts TSH, THIRD GENERATION (test code = 2821) TEST NOT PERFORMED UIU/ML Dwayne MyersCOMPREHENSIVE METABOLIC LQYER5449-29-15 00:00:00* Test Item Value Reference Range Interpretation Comme nts GLUCOSE (test code = 2217) TEST NOT PERFORMED MG/DL BUN (test code = 2208) TEST NOT PERFORME D MG/DL CREATININE (test code = 2214) TEST NOT PERFORMED MG/DL eGFR (2020 CKD-EPI) (test code = 43351) TEST NOT PERFORMED ML/MIN/1.73 CALC BUN/CREAT (test [...] TEST NOT PERFORME D U/L Dwayne Bah LsldyzBXHXJLZICWLV3873-23-09 00:00:00* Test Item Value Reference Range Interpretation Comme nts PROGESTERONE (test code = 2790) TEST NOT PERFORMED NG/ML Dwayne MyersWjsauiSKCLSQSJG5139-81-33 00:00:00* Test Item Value Reference Range Interpretation Comme nts ESTRADIOL (test code = 2505) TEST NOT PERFORMED PG/ML Dwayne MyersFjlumjWBX1638-79-15 00:00:00* Test Item Value Reference Range Interpretation Comme nts TSH, THIRD GENERATION (test code = 2821) TEST NOT PERFORMED UIU/ML Dwayne MyersCOMPREHENSIVE METABOLIC PPGHI0198-63-97 00:00:00* Test Item Value Reference Range Interpretation Comme nts GLUCOSE (test code = 2217) TEST NOT PERFORMED MG/DL BUN (test code = 2208) TEST NOT PERFORME D MG/DL CREATININE (test code = 2214) TEST NOT PERFORMED MG/DL eGFR (2020 CKD-EPI) (test code = 87695) TEST NOT PERFORMED ML/MIN/1.73 CALC BUN/CREAT (test [...] 2219) TEST NOT PERFORME D U/L Dwayne MyersHangvvVHBAUZJTKWUG2512-20-14 00:00:00* Test Item Value Reference Range Interpretation Comme nts PROGESTERONE (test code = 2790) TEST NOT PERFORMED NG/ML Dwayne Bah XsumkyKTXJHQLAK8936-75-35 00:00:00* Test Item Value Reference Range Interpretation Comme nts ESTRADIOL (test code = 2505) TEST NOT PERFORMED PG/ML Dwayne Bah AwntziZRV8071-98-64 00:00:00* Test Item Value Reference Range Interpretation Comme nts TSH, THIRD GENERATION (test code = 2821) TEST NOT PERFORMED UIU/ML Dwayne MyersCOMPREHENSIVE METABOLIC KFIYO1057-13-93 00:00:00* Test Item Value Reference Range Interpretation Comme nts GLUCOSE (test code = 2217) TEST NOT PERFORMED MG/DL BUN (test code = 2208) TEST NOT PERFORME D MG/DL CREATININE (test code = 2214) TEST NOT PERFORMED MG/DL eGFR (2020 CKD-EPI) (test code = 62311) TEST NOT PERFORMED ML/MIN/1.73 CALC BUN/CREAT (test [...] 2219) TEST NOT PERFORME D U/L Dwayne MyersUeuhcpWHAJVRRVSPJH9915-15-77 00:00:00* Test Item Value Reference Range Interpretation Comme nts PROGESTERONE (test code = 2790) TEST NOT PERFORMED NG/ML Dwayne MyersSrpevaFSYNSQVHU5976-47-62 00:00:00* Test Item Value Reference Range Interpretation Comme nts ESTRADIOL (test code = 2505) TEST NOT PERFORMED PG/ML Dwayne MyersHflupxNIC9032-58-87 00:00:00* Test Item Value Reference Range Interpretation Comme nts TSH, THIRD GENERATION (test code = 2821) TEST NOT PERFORMED UIU/ML Dwayne MyersCOMPREHENSIVE METABOLIC YRRTY7620-05-67 00:00:00* Test Item Value Reference Range Interpretation Comme nts GLUCOSE (test code = 2217) TEST NOT PERFORMED MG/DL BUN (test code = 2208) TEST NOT PERFORME D MG/DL CREATININE (test code = 2214) TEST NOT PERFORMED MG/DL eGFR (2020 CKD-EPI) (test code = 06064) TEST NOT PERFORMED ML/MIN/1.73 CALC BUN/CREAT (test [...] 2219) TEST NOT PERFORME D U/L Dwayne MyersWvsbarZOOUTCHAELJC3967-24-64 00:00:00* Test Item Value Reference Range Interpretation Comme nts PROGESTERONE (test code = 2790) TEST NOT PERFORMED NG/ML Dwayne MyersEtcmryCZRBUPHNP1989-26-25 00:00:00* Test Item Value Reference Range Interpretation Comme nts ESTRADIOL (test code = 2505) TEST NOT PERFORMED PG/ML Dwayne MyersPqizguEJF3420-56-57 00:00:00* Test Item Value Reference Range Interpretation Comme nts TSH, THIRD GENERATION (test code = 2821) TEST NOT PERFORMED UIU/ML Dwayne MyersCOMPREHENSIVE METABOLIC YREAA3326-58-30 00:00:00* Test Item Value Reference Range Interpretation Comme nts GLUCOSE (test code = 2217) TEST NOT PERFORMED MG/DL BUN (test code = 2208) TEST NOT PERFORME D MG/DL CREATININE (test code = 2214) TEST NOT PERFORMED MG/DL eGFR (2020 CKD-EPI) (test code = 67949) TEST NOT PERFORMED ML/MIN/1.73 CALC BUN/CREAT (test [...] 2219) TEST NOT PERFORME D U/L Dwayne MyersSobyuxAOLMMJBGFBEP2107-47-99 00:00:00* Test Item Value Reference Range Interpretation Comme nts PROGESTERONE (test code = 2790) TEST NOT PERFORMED NG/ML Dwayne MyersRfpdrzCRDYYBKGH4633-88-33 00:00:00* Test Item Value Reference Range Interpretation Comme nts ESTRADIOL (test code = 2505) TEST NOT PERFORMED PG/ML Dwayne MyersRgcqaxLHW1183-81-12 00:00:00* Test Item Value Reference Range Interpretation Comme nts TSH, THIRD GENERATION (test code = 2821) TEST NOT PERFORMED UIU/ML Dwayne F AustinCOMPREHENSIVE METABOLIC YWLTY1766-07-63 00:00:00* Test Item Value Reference Range Interpretation Comme nts GLUCOSE (test code = 2217) TEST NOT PERFORMED MG/DL BUN (test code = 2208) TEST NOT PERFORME D MG/DL CREATININE (test code = 2214) TEST NOT PERFORMED MG/DL eGFR (2020 CKD-EPI) (test code = 85382) TEST NOT PERFORMED ML/MIN/1.73 CALC BUN/CREAT (test [...] 2219) TEST NOT PERFORME D U/L Dwayne MyersJbfmkkJNKVNQDAJJUV9913-97-37 00:00:00* Test Item Value Reference Range Interpretation Comme nts PROGESTERONE (test code = 2790) TEST NOT PERFORMED NG/ML Dwayne MyersQvseohYCSNZBMQI2223-61-64 00:00:00* Test Item Value Reference Range Interpretation Comme nts ESTRADIOL (test code = 2505) TEST NOT PERFORMED PG/ML Dwayne Bah XbxrtyCDD5066-64-93 00:00:00* Test Item Value Reference Range Interpretation Comme nts TSH, THIRD GENERATION (test code = 2821) TEST NOT PERFORMED UIU/ML Dwayne MyersCOMPREHENSIVE METABOLIC SXDTG9564-85-38 00:00:00* Test Item Value Reference Range Interpretation Comme nts GLUCOSE (test code = 2217) TEST NOT PERFORMED MG/DL BUN (test code = 2208) TEST NOT PERFORME D MG/DL CREATININE (test code = 2214) TEST NOT PERFORMED MG/DL eGFR (2020 CKD-EPI) (test code = 83346) TEST NOT PERFORMED ML/MIN/1.73 CALC BUN/CREAT (test [...] 2219) TEST NOT PERFORME D U/L Dwayne MyersLukdsnNAMAPXPNPLXU6670-61-78 00:00:00* Test Item Value Reference Range Interpretation Comme nts PROGESTERONE (test code = 2790) TEST NOT PERFORMED NG/ML Dwayne MyersDplkgtOYKYXBOQS7643-07-86 00:00:00* Test Item Value Reference Range Interpretation Comme nts ESTRADIOL (test code = 2505) TEST NOT PERFORMED PG/ML Dwayne Bah UqmvyyRYJ3780-02-81 00:00:00* Test Item Value Reference Range Interpretation Comme nts TSH, THIRD GENERATION (test code = 2821) TEST NOT PERFORMED UIU/ML Dwayne MyersCOMPREHENSIVE METABOLIC [id number] 00:00:00* Test Item Value Reference Range Interpretation Comme nts GLUCOSE (test code = 2217) TEST NOT PERFORMED MG/DL BUN (test code = 2208) TEST NOT PERFORME D MG/DL CREATININE (test code = 2214) TEST NOT PERFORMED MG/DL eGFR (2020 CKD-EPI) (test code = 75532) TEST NOT PERFORMED ML/MIN/1.73 CALC BUN/CREAT (test [...] 2218) TEST NOT PERFORME D U/L Dwayne [id number] 00:00:00* Test Item Value Reference Range Interpretation Comme nts PROGESTERONE (test code = 2790) TEST NOT PERFORMED NG/ML Dwayne [id number] 00:00:00* Test Item Value Reference Range Interpretation Comme nts ESTRADIOL (test code = 2505) TEST NOT PERFORMED PG/ML Dwayne Bah [id number] 00:00:00* Test Item Value Reference Range Interpretation Comme nts TSH, THIRD GENERATION (test code = 2821) TEST NOT PERFORMED UIU/ML Dwayne MyersCOMPREHENSIVE METABOLIC [id number] 00:00:00* Test Item Value Reference Range Interpretation Comme nts GLUCOSE (test code = 2217) TEST NOT PERFORMED MG/DL BUN (test code = 2208) TEST NOT PERFORME D MG/DL CREATININE (test code = 2214) TEST NOT PERFORMED MG/DL eGFR (2020 CKD-EPI) (test code = 73250) TEST NOT PERFORMED ML/MIN/1.73 CALC BUN/CREAT (test [...] 2219) TEST NOT PERFORME D U/L Dwayne [id number] 00:00:00* Test Item Value Reference Range Interpretation Comme nts PROGESTERONE (test code = 2790) TEST NOT PERFORMED NG/ML Dwayne Niurka MyersPzzeskVEXEUEOOX7262-91-66 00:00:00* Test Item Value Reference Range Interpretation Comme nts ESTRADIOL (test code = 2505) TEST NOT PERFORMED PG/ML Dwayne Niurka [id number] 00:00:00* Test Item Value Reference Range Interpretation Comme nts TSH, THIRD GENERATION (test code = 2821) TEST NOT PERFORMED UIU/ML Dwayne Niurka SyfasgKRP2230-72-72 00:00:00* Test Item Value Reference Range Interpretation Comme nts TSH, THIRD GENERATION (test code = 2821) TEST NOT PERFORMED UIU/ML COMPREHENSIVE METABOLIC [id number] 00:00:00* Test Item Value Reference Range Interpretation Comme nts GLUCOSE (test code = 2217) TEST NOT PERFORMED MG/DL BUN (test code = 2208) TEST NOT PERFORME D MG/DL CREATININE (test code = 2214) TEST NOT PERFORMED MG/DL eGFR (2020 CKD-EPI) (test code = 53421) TEST NOT PERFORMED ML/MIN/1.73 CALC BUN/CREAT (test [...] = 2219) TEST NOT PERFORME D U/L [id number] 00:00:00* Test Item Value Reference Range Interpretation Comme nts PROGESTERONE (test code = 2790) TEST NOT PERFORMED NG/ML [id number] 00:00:00* Test Item Value Reference Range Interpretation Comme nts ESTRADIOL (test code = 2505) TEST NOT PERFORMED PG/ML [id number] 00:00:00* Test Item Value Reference Range Interpretation Comme nts TSH, THIRD GENERATION (test code = 2821) TEST NOT PERFORMED UIU/ML COMPREHENSIVE METABOLIC [id number] 00:00:00* Test Item Value Reference Range Interpretation Comme nts GLUCOSE (test code = 2217) TEST NOT PERFORMED MG/DL BUN (test code = 2208) TEST NOT PERFORME D MG/DL CREATININE (test code = 2214) TEST NOT PERFORMED MG/DL eGFR (2020 CKD-EPI) (test code = 69287) TEST NOT PERFORMED ML/MIN/1.73 CALC BUN/CREAT (test [...] = 2219) TEST NOT PERFORME D U/L [id number] 00:00:00* Test Item Value Reference Range Interpretation Comme nts PROGESTERONE (test code = 2790) TEST NOT PERFORMED NG/ML [id number] 00:00:00* Test Item Value Reference Range Interpretation Comme nts ESTRADIOL (test code = 2505) TEST NOT PERFORMED PG/ML [id number] 00:00:00* Test Item Value Reference Range Interpretation Comme nts TSH, THIRD GENERATION (test code = 2821) TEST NOT PERFORMED UIU/ML [id number] 00:00:00* Test Item Value Reference Range Interpretation Comme nts TSH, THIRD GENERATION (test code = 2821) TEST NOT PERFORMED UIU/ML COMPREHENSIVE METABOLIC [id number] 00:00:00* Test Item Value Reference Range Interpretation Comme nts GLUCOSE (test code = 2217) TEST NOT PERFORMED MG/DL BUN (test code = 2208) TEST NOT PERFORME D MG/DL CREATININE (test code = 2214) TEST NOT PERFORMED MG/DL eGFR (2020 CKD-EPI) (test code = 42271) TEST NOT PERFORMED ML/MIN/1.73 CALC BUN/CREAT (test [...] TEST NOT PERFORME D U/L COMPREHENSIVE METABOLIC [id number] 00:00:00* Test Item Value Reference Range Interpretation Comme nts GLUCOSE (test code = 2217) TEST NOT PERFORMED MG/DL BUN (test code = 2208) TEST NOT PERFORME D MG/DL CREATININE (test code = 2214) TEST NOT PERFORMED MG/DL eGFR (2020 CKD-EPI) (test code = 89681) TEST NOT PERFORMED ML/MIN/1.73 CALC BUN/CREAT (test [...] = 2219) TEST NOT PERFORME D U/L [id number] 00:00:00* Test Item Value Reference Range Interpretation Comme nts PROGESTERONE (test code = 2790) TEST NOT PERFORMED NG/ML [id number] 00:00:00* Test Item Value Reference Range Interpretation Comme nts ESTRADIOL (test code = 2505) TEST NOT PERFORMED PG/ML [id number] 00:00:00* Test Item Value Reference Range Interpretation Comme nts PROGESTERONE (test code = 2790) TEST NOT PERFORMED NG/ML [id number] 00:00:00* Test Item Value Reference Range Interpretation Comme nts ESTRADIOL (test code = 2505) TEST NOT PERFORMED PG/ML COMPREHENSIVE METABOLIC [id number] 00:00:00* Test Item Value Reference Range Interpretation Comme nts GLUCOSE (test code = 2217) TEST NOT PERFORMED MG/DL BUN (test code = 2208) TEST NOT PERFORME D MG/DL CREATININE (test code = 2214) TEST NOT PERFORMED MG/DL eGFR (2020 CKD-EPI) (test code = 05923) TEST NOT PERFORMED ML/MIN/1.73 CALC BUN/CREAT (test [...] PERFORME D U/L ALT (test code = 221) TEST NOT PERFORME D U/L Dwayne Bah [id number] 00:00:00* Test Item Value Reference Range Interpretation Comme nts PROGESTERONE (test code = 2790) TEST NOT PERFORMED NG/ML Dwayne Bah [id number] 00:00:00* Test Item Value Reference Range Interpretation Comme nts ESTRADIOL (test code = 2505) TEST NOT PERFORMED PG/ML Dwayne Bah [id number] 00:00:00* Test Item Value Reference Range Interpretation Comme nts TSH, THIRD GENERATION (test code = 2821) TEST NOT PERFORMED UIU/ML Dwayne MyersCOMPREHENSIVE METABOLIC [id number] 00:00:00* Test Item Value Reference Range Interpretation Comme nts GLUCOSE (test code = 2217) TEST NOT PERFORMED MG/DL BUN (test code = 2208) TEST NOT PERFORME D MG/DL CREATININE (test code = 2214) TEST NOT PERFORMED MG/DL eGFR (2020 CKD-EPI) (test code = 18873) TEST NOT PERFORMED ML/MIN/1.73 CALC BUN/CREAT (test [...] 2218) TEST NOT PERFORME D U/L Dwayne MyersXcvlpvCXMNDLGSRTEH3973-73-07 00:00:00* Test Item Value Reference Range Interpretation Comme nts PROGESTERONE (test code = 2790) TEST NOT PERFORMED NG/ML Dwayne MyersMppqdzKFDSVCQJO7912-49-45 00:00:00* Test Item Value Reference Range Interpretation Comme nts ESTRADIOL (test code = 2505) TEST NOT PERFORMED PG/ML Dwayne Bah LbxewiVSJ3779-20-97 00:00:00* Test Item Value Reference Range Interpretation Comme nts TSH, THIRD GENERATION (test code = 2821) TEST NOT PERFORMED UIU/ML Dwayne Bah [id number] 00:00:00* Test Item Value Reference Range Interpretation Comme nts TSH, THIRD GENERATION (test code = 2821) TEST NOT PERFORMED UIU/ML Dwayne Bah [place] [id number] 00:00:00* Test Item Value Reference Range Interpretation Comme nts GLUCOSE (test code = 2217) TEST NOT PERFORMED MG/DL BUN (test code = 2208) TEST NOT PERFORME D MG/DL CREATININE (test code = 2214) TEST NOT PERFORMED MG/DL eGFR (2020 CKD-EPI) (test code = 06898) TEST NOT PERFORMED ML/MIN/1.73 CALC BUN/CREAT (test [...] 2219) TEST NOT PERFORME D U/L Dwayne MyersJfzoisDIFMYYGGERJU7517-27-86 00:00:00* Test Item Value Reference Range Interpretation Comme nts PROGESTERONE (test code = 2790) TEST NOT PERFORMED NG/ML Dwayne MyersMnzgwgYCXUORFUZ8794-89-12 00:00:00* Test Item Value Reference Range Interpretation Comme nts ESTRADIOL (test code = 2505) TEST NOT PERFORMED PG/ML Dwayne Bah [id number] 00:00:00* Test Item Value Reference Range Interpretation Comme nts TSH, THIRD GENERATION (test code = 2821) TEST NOT PERFORMED UIU/ML Dwayne MyersCOMPREHENSIVE METABOLIC [id number] 00:00:00* Test Item Value Reference Range Interpretation Comme nts GLUCOSE (test code = 2217) TEST NOT PERFORMED MG/DL BUN (test code = 2208) TEST NOT PERFORME D MG/DL CREATININE (test code = 2214) TEST NOT PERFORMED MG/DL eGFR (2020 CKD-EPI) (test code = 91901) TEST NOT PERFORMED ML/MIN/1.73 CALC BUN/CREAT (test [...] 2219) TEST NOT PERFORME D U/L Dwayne MyersCOMPREHENSIVE METABOLIC [id number] 00:00:00* Test Item Value Reference Range Interpretation Comme nts GLUCOSE (test code = 2217) TEST NOT PERFORMED MG/DL BUN (test code = 2208) TEST NOT PERFORME D MG/DL CREATININE (test code = 2214) TEST NOT PERFORMED MG/DL eGFR (2020 CKD-EPI) (test code = 54415) TEST NOT PERFORMED ML/MIN/1.73 CALC BUN/CREAT (test [...] 2219) TEST NOT PERFORME D U/L Dwayne MyersCoddkiYAFRVCQIFLRA1608-04-62 00:00:00* Test Item Value Reference Range Interpretation Comme nts PROGESTERONE (test code = 2790) TEST NOT PERFORMED NG/ML Dwayne Bah PzimifWBJOEKTRP0110-43-46 00:00:00* Test Item Value Reference Range Interpretation Comme nts ESTRADIOL (test code = 2505) TEST NOT PERFORMED PG/ML Dwayne MyersIzfpezGZMELHSJEWSY4579-72-23 00:00:00* Test Item Value Reference Range Interpretation Comme nts PROGESTERONE (test code = 2790) TEST NOT PERFORMED NG/ML Dwayne MyersLqfimbQVGSZRNKF7826-16-73 00:00:00* Test Item Value Reference Range Interpretation Comme nts ESTRADIOL (test code = 2505) TEST NOT PERFORMED PG/ML Dwayne MyersDqjmfvPYL9832-18-18 00:00:00* Test Item Value Reference Range Interpretation Comme nts TSH, THIRD GENERATION (test code = 2821) TEST NOT PERFORMED UIU/ML Dwayne MyersCOMPREHENSIVE METABOLIC [id number] 00:00:00* Test Item Value Reference Range Interpretation Comme nts GLUCOSE (test code = 2217) TEST NOT PERFORMED MG/DL BUN (test code = 2208) TEST NOT PERFORME D MG/DL CREATININE (test code = 2214) TEST NOT PERFORMED MG/DL eGFR (2020 CKD-EPI) (test code = 67019) TEST NOT PERFORMED ML/MIN/1.73 CALC BUN/CREAT (test [...] 2219) TEST NOT PERFORME D U/L Dwayne DhaliwalGzsiztTYDAJXPRWCOL0749-53-21 00:00:00* Test Item Value Reference Range Interpretation Comme nts PROGESTERONE (test code = 2790) TEST NOT PERFORMED NG/ML Dwayne MyersQvotdxHXCHSWDLC3630-82-93 00:00:00* Test Item Value Reference Range Interpretation Comme nts ESTRADIOL (test code = 2505) TEST NOT PERFORMED PG/ML Dwayne MyersApdxivULW6801-24-55 00:00:00* Test Item Value Reference Range Interpretation Comme nts TSH, THIRD GENERATION (test code = 2821) TEST NOT PERFORMED UIU/ML Dwayne MyersTROPONIN [id number] 14:05:29* Test Item Value Reference Range Interpretation Comments TROPONIN I (test code = 2183862215) <0.012 See_Comment [Automated message] The system which [...] of biotin. Lab Interpretation (test code = 31411-2) [id number] 14:02:07* Test Item Value Reference Range Interpretation Comme nts NT-proBNP (test code = 5075306635) 343 pg/mL See_Comment H [Automated message] The system which generated this result transmitted reference range: <=125. The reference range was not used to interpret this result as normal/abnormal. LUCILLE (test code = LUCILLE) Biotin has been reported to cause a negative bias, interpret results relative to patient's use of biotin. Lab Interpretation (test code = 52695-9) Abnormal [facility]. METABOLIC PANEL (05924)2022-01-29 13:53:30* Test Item Value Reference Range Interpretation Comme nts NA (test code = 3606362231) 146 mmol/L 135-145 H K (test code = 7963302085) 4.2 mmol/L 3.5-5.0 CL (test code = 3801684871) 114 mmol/L 98-108 H CO2 TOTAL (test code = 9243894644) 23 mmol/L 23-31 AGAP (test code = 9099967589) 2-16 BUN (test code = 0524800684) 14 mg/dL 7-23 GLUCOSE (test code = 3534556276) 72 mg/dL 70-110 CREATININE (test code = 9671942038) 1.08 mg/dL 0.50-1.04 H TOTAL BILI (test code = 3693761369) 0.3 mg/dL 0.1-1.1 CALCIUM (test code = 5036329550) 9.1 mg/dL 8.6-10.6 T PROTEIN (test code = 1423047099) 6.1 g/dL 6.3-8.2 L ALBUMIN (test code = 7755656181) 3.8 g/dL 3.5-5.0 ALK PHOS (test code = 2442482158) 86 U/L 34-122 ALTv (test code = 1742-6) 26 U/L 5-35 AST(SGOT) (test code = 5038648668) 28 U/L 13-40 eGFR (test code = 5800992315) mL/min/1.73m2 LUCILLE (test code = LUCILLE) Association [...] imaging tests). Lab Interpretation (test code = 80950-1) [facility] + LACTIC [id number] 13:52:59* Test Item Value Reference Range Interpretation Comme nts PH (test code = 5087926525) 7.32-7.42 PCO2 WYATT (test code = 6349716228) See_Comment [Automated messa ge] The system which generated this result transmitted reference range: 41 - 51 mmHg. The reference range was not used to interpret this result as normal/abnormal. PO2 WYATT (test code = 6909604241) See_Comment L [Automated messa ge] The system which generated this result transmitted reference range: 25 - 40 mmHg. The reference range was not used to interpret this result as normal/abnormal. HCO3 WYATT (test code = 8796974942) See_Comment [Automated messa ge] The system which generated this result transmitted reference range: 24 - 28 mEq/L. The reference range was not used to interpret this result as normal/abnormal. AC VBE(BEAKER) (test code = 0201142806) mEq/L THB WYATT (test code = 3797162548) 11.4 g/dL 12.0-16.0 L %O2HB WYATT (test code = 4391966053) 21.7 % 52.0-63.0 L %COHB WYATT (test code = 1806770575) 0.3 % 0.0-1.5 %METHB WYATT (test code = 1931766708) 1.1 % 0.4-1.5 VOL%O2 WYATT (test code = 5377094957) 3.5 % 6.0-12.0 L NA (test code = 8893517087) 145 mmol/L 135-145 K+ (test code = 3914693219) 4.0 mmol/L 3.5-5.0 AC CA IONZ (test code = 5858776675) 5.00 mg/dL 4.50-5.30 GLUCOSE (test code = 9968890529) 70 mg/dL 70-110 LACTIC ACID (test code = 2105249225) 2.81 mmol/L 0.50-2.20 H Lab Interpretation (test code = 63626-6) Abnormal [facility] WITH [id number] 13:41:47* Test Item Value Reference Range Interpretation [...] g/dL 31.6-35.1 L RDW-SD (test code = 56039-5) 47.6 fL 39.0-49.9 RDW-CV (test code = 788-0) 15.9 % 12.0-15.5 H PLT (test code = 777-3) See_Comment [Automated messa ge] The system which generated this result transmitted reference range: 166 - 358 10*3/?L. The reference range was not used to interpret this result as normal/abnormal. MPV (test code = 76526-1) 10.9 fL 9.5-12.9 NRBC/100 WBC (test code = 2498904518) See_Comment [Automated [employer] ssage] The system which generated this result transmitted reference range: 0.0 - 10.0 /100 WBCs. The reference range was not used to interpret this result as normal/abnormal. NRBC x10^3 (test code = 5505846416) <0.01 See_Comment [Automated messa ge] The system which generated this result transmitted reference range: 10*3/?L. The reference range was not used to interpret this result as normal/abnormal. GRAN MAT (NEUT) % (test code = 770-8) 80.7 % IMM GRAN % (test code = 4342445349) 0.30 % LYMPH % (test code = 736-9) 12.4 % MONO % (test code = 5905-5) 4.9 % EOS % (test code = 713-8) 0.9 % BASO % (test code = 706-2) 0.8 % GRAN MAT x10^3(ANC) (test code = 6360262241) 6.92 10*3/uL 1.88-7.09 IMM GRAN x10^3 (test code = 1408183509) 0.03 10*3/uL 0.00-0.06 LYMPH x10^3 (test code = 731-0) 1.06 10*3/uL 1.32-3.29 L MONO x10^3 (test code = 742-7) 0.42 10*3/uL 0.33-0.92 EOS x10^3 (test code = 711-2) 0.08 10*3/uL 0.03-0.39 BASO x10^3 (test code = 704-7) 0.07 10*3/uL 0.01-0.07 Lab Interpretation (test code = 99425-1) Abnormal [facility] W/AUTO DIFF WITH [id number] 05:43:21* Test Item Value Reference Range Interpretation [...] = 1065) 0.0 /100 WBC'S See_Comment [Automated [employer]] The system which generated this result [...] 0.00-0.10 ABS NUCLEATED RBCS (test code = 49297) 0.00 K/UL 0.00-0.11 HEMOGLOBIN [id number] 05:31:32* Test Item Value Reference Range Interpretation Comme nts HEMOGLOBIN A1c (test code = 69516) 6.4 % 4.2-5.6 H HEMOGLOBIN [id number] 00:00:00* Test Item Value Reference Range Interpretation Comme nts HEMOGLOBIN A1c (test code = 54224) 6.4 % [facility] [id number] 00:00:00* Test Item Value Reference Range Interpretation [...] ABS NUCLEATED RBCS (test cod e = 81127) 0.00 K/UL Dwayne MyersHEMOGLOBIN [id number] 00:00:00* Test Item Value Reference Range Interpretation Comme nts HEMOGLOBIN A1c (test code = 34749) 6.4 % Dwayne MyersCBC W/AUTO [id number] 00:00:00* Test Item Value Reference Range Interpretation [...] ABS NUCLEATED RBCS (test cod e = 76931) 0.00 K/UL Dwayne MyersHEMOGLOBIN [id number] 00:00:00* Test Item Value Reference Range Interpretation Comme nts HEMOGLOBIN A1c (test code = 84222) 6.4 % Dwayne MyersCBC W/AUTO [id number] 00:00:00* Test Item Value Reference Range Interpretation [...] ABS NUCLEATED RBCS (test cod e = 26202) 0.00 K/UL Dwayne Bah AustinHEMOGLOBIN [id number] 00:00:00* Test Item Value Reference Range Interpretation Comme nts HEMOGLOBIN A1c (test code = 18027) 6.4 % Dwayne MyersCBC W/AUTO [id number] 00:00:00* Test Item Value Reference Range Interpretation [...] ABS NUCLEATED RBCS (test cod e = 58490) 0.00 K/UL Dwayne Bah AustinHEMOGLOBIN [id number] 00:00:00* Test Item Value Reference Range Interpretation Comme nts HEMOGLOBIN A1c (test code = 13442) 6.4 % Dwayne Bah AustinCBC W/AUTO [id number] 00:00:00* Test Item Value Reference Range Interpretation [...] ABS NUCLEATED RBCS (test cod e = 82328) 0.00 K/UL Dwayne MyersHEMOGLOBIN [id number] 00:00:00* Test Item Value Reference Range Interpretation Comme nts HEMOGLOBIN A1c (test code = 38010) 6.4 % Dwayne MyersCBC W/AUTO [id number] 00:00:00* Test Item Value Reference Range Interpretation [...] ABS NUCLEATED RBCS (test cod e = 58150) 0.00 K/UL Dwayne MyersHEMOGLOBIN [id number] 00:00:00* Test Item Value Reference Range Interpretation Comme nts HEMOGLOBIN A1c (test code = 82613) 6.4 % Dwayne MyersCBC W/AUTO [id number] 00:00:00* Test Item Value Reference Range Interpretation [...] ABS NUCLEATED RBCS (test cod e = 23210) 0.00 K/UL Dwayne MyersHEMOGLOBIN [id number] 00:00:00* Test Item Value Reference Range Interpretation Comme nts HEMOGLOBIN A1c (test code = 69166) 6.4 % Dwayne MyersCBC W/AUTO [id number] 00:00:00* Test Item Value Reference Range Interpretation [...] ABS NUCLEATED RBCS (test cod e = 63299) 0.00 K/UL Dwayne Bah AustinHEMOGLOBIN [id number] 00:00:00* Test Item Value Reference Range Interpretation Comme nts HEMOGLOBIN A1c (test code = 93401) 6.4 % Dwayne Bah AustinCBC W/AUTO [id number] 00:00:00* Test Item Value Reference Range Interpretation [...] ABS NUCLEATED RBCS (test cod e = 42634) 0.00 K/UL Dwayne Bah AustinHEMOGLOBIN [id number] 00:00:00* Test Item Value Reference Range Interpretation Comme nts HEMOGLOBIN A1c (test code = 92291) 6.4 % Dwayne Bah AustinCBC W/AUTO [id number] 00:00:00* Test Item Value Reference Range Interpretation [...] ABS NUCLEATED RBCS (test cod e = 58235) 0.00 K/UL Dwayne MyersHEMOGLOBIN [id number] 00:00:00* Test Item Value Reference Range Interpretation Comme nts HEMOGLOBIN A1c (test code = 07872) 6.4 % Dwayne Bah AustinCBC W/AUTO [id number] 00:00:00* Test Item Value Reference Range Interpretation [...] ABS NUCLEATED RBCS (test cod e = 99871) 0.00 K/UL Dwayne MyersHEMOGLOBIN [id number] 00:00:00* Test Item Value Reference Range Interpretation Comme nts HEMOGLOBIN A1c (test code = 05922) 6.4 % Dwayne MyersCBC W/AUTO [id number] 00:00:00* Test Item Value Reference Range Interpretation [...] ABS NUCLEATED RBCS (test cod e = 72324) 0.00 K/UL Dwayne MyersHEMOGLOBIN [id number] 00:00:00* Test Item Value Reference Range Interpretation Comme nts HEMOGLOBIN A1c (test code = 50976) 6.4 % Dwayne MyersCBC W/AUTO [id number] 00:00:00* Test Item Value Reference Range Interpretation [...] ABS NUCLEATED RBCS (test cod e = 90504) 0.00 K/UL Dwayne Bah AustinHEMOGLOBIN [id number] 00:00:00* Test Item Value Reference Range Interpretation Comme nts HEMOGLOBIN A1c (test code = 29353) 6.4 % Dwayne Bah AustinCBC W/AUTO [id number] 00:00:00* Test Item Value Reference Range Interpretation [...] ABS NUCLEATED RBCS (test cod e = 50128) 0.00 K/UL Dwayne Bah AustinHEMOGLOBIN [id number] 00:00:00* Test Item Value Reference Range Interpretation Comme nts HEMOGLOBIN A1c (test code = 68948) 6.4 % Dwayne Bah AustinCBC W/AUTO [id number] 00:00:00* Test Item Value Reference Range Interpretation [...] ABS NUCLEATED RBCS (test cod e = 90996) 0.00 K/UL Dwayne F AustinHEMOGLOBIN [id number] 00:00:00* Test Item Value Reference Range Interpretation Comme nts HEMOGLOBIN A1c (test code = 96571) 6.4 % Dwayne F AustinHEMOGLOBIN [id number] 00:00:00* Test Item Value Reference Range Interpretation Comme nts HEMOGLOBIN A1c (test code = 83326) 6.4 % CBC W/AUTO [id number] 00:00:00* Test Item Value Reference Range Interpretation [...] ABS NUCLEATED RBCS (test cod e = 81658) 0.00 K/UL HEMOGLOBIN [id number] 00:00:00* Test Item Value Reference Range Interpretation Comme nts HEMOGLOBIN A1c (test code = 64551) 6.4 % CBC W/AUTO [id number] 00:00:00* Test Item Value Reference Range Interpretation [...] ABS NUCLEATED RBCS (test cod e = 07364) 0.00 K/UL HEMOGLOBIN [id number] 00:00:00* Test Item Value Reference Range Interpretation Comme nts HEMOGLOBIN A1c (test code = 82152) 6.4 % CBC W/AUTO [id number] 00:00:00* Test Item Value Reference Range Interpretation [...] ABS NUCLEATED RBCS (test cod e = 63811) 0.00 K/UL HEMOGLOBIN [id number] 00:00:00* Test Item Value Reference Range Interpretation Comme nts HEMOGLOBIN A1c (test code = 42864) 6.4 % CBC W/AUTO [id number] 00:00:00* Test Item Value Reference Range Interpretation [...] ABS NUCLEATED RBCS (test cod e = 83661) 0.00 K/UL HEMOGLOBIN [id number] 00:00:00* Test Item Value Reference Range Interpretation Comme nts HEMOGLOBIN A1c (test code = 93246) 6.4 % Dwayne MyersCBC W/AUTO [id number] 00:00:00* Test Item Value Reference Range Interpretation [...] ABS NUCLEATED RBCS (test cod e = 45765) 0.00 K/UL Dwayne MyersHEMOGLOBIN [id number] 00:00:00* Test Item Value Reference Range Interpretation Comme nts HEMOGLOBIN A1c (test code = 82577) 6.4 % Dwayne MyersCBC W/AUTO [id number] 00:00:00* Test Item Value Reference Range Interpretation [...] ABS NUCLEATED RBCS (test cod e = 63054) 0.00 K/UL Dwayne MyersHEMOGLOBIN [id number] 00:00:00* Test Item Value Reference Range Interpretation Comme nts HEMOGLOBIN A1c (test code = 20093) 6.4 % Dwayne MyersCBC W/AUTO [id number] 00:00:00* Test Item Value Reference Range Interpretation [...] ABS NUCLEATED RBCS (test cod e = 72244) 0.00 K/UL Dwayne MyersCBC W/AUTO [id number] 00:00:00* Test Item Value Reference Range Interpretation [...] ABS NUCLEATED RBCS (test cod e = 95786) 0.00 K/UL Dwayne MyersHEMOGLOBIN [id number] 00:00:00* Test Item Value Reference Range Interpretation Comme nts HEMOGLOBIN A1c (test code = 94729) 6.4 % Dwayne F AustinCBC W/AUTO [id number] 00:00:00* Test Item Value Reference Range Interpretation [...] ABS NUCLEATED RBCS (test cod e = 77091) 0.00 K/UL Dwayne MyersHEMOGLOBIN [id number] 00:00:00* Test Item Value Reference Range Interpretation Comme nts HEMOGLOBIN A1c (test code = 07813) 6.4 % Dwayne Bah AustinCBC W/AUTO [id number] 00:00:00* Test Item Value Reference Range Interpretation [...] ABS NUCLEATED RBCS (test cod e = 05069) 0.00 K/UL Dwayne MyersHEMOGLOBIN [id number] 00:00:00* Test Item Value Reference Range Interpretation Comme nts HEMOGLOBIN A1c (test code = 11007) 6.4 % Dwayne MyersCBC W/AUTO [id number] 00:00:00* Test Item Value Reference Range Interpretation [...] ABS NUCLEATED RBCS (test cod e = 51596) 0.00 K/UL Dwayne Bah AustinC-ARM<1 HR W IMAGES*WW*2022-01-05 15:46:44 [facility] : 1970 Sex: FFluoroscopyLocation Code: [id number] HISTORY: SURGICAL PROCEDURE , Back painComments: Fluoroscopy was provided during sympathetic nerve block. Approximately fluoroscopy time was 32.6 seconds. 3 images were obtained.IMPRESSION: Fluoroscopy services provided. Please see operative report for full details.Electronically signed by: Gabriele Castaneda MD 01/05/2022 3:46 PM CDT [id number] URINE MONOCLONAL *WW*2022-01-05 11:24:00* Test Item Value Reference Range Interpretation Comme nts PREG UR (test code = PGU) NEGATIVE NEGATIVE CBC WITH [id number] 12:44:09* Test Item Value Reference Range Interpretation [...] g/dL 31.6-35.1 L RDW-SD (test code = 32557-8) 49.5 fL 39.0-49.9 RDW-CV (test code = 788-0) 15.5 % 12.0-15.5 PLT (test code = 777-3) See_Comment H [Automated messa ge] The system which generated this result transmitted reference range: 166 - 358 10*3/?L. The reference range was not used to interpret this result as normal/abnormal. MPV (test code = 86081-3) 10.3 fL 9.5-12.9 NRBC/100 WBC (test code = 1616052297) See_Comment [Automated [employer] ssage] The system which generated this result transmitted reference range: 0.0 - 10.0 /100 WBCs. The reference range was not used to interpret this result as normal/abnormal. NRBC x10^3 (test code = 2667114552) See_Comment [Automated messa ge] The system which generated this result transmitted reference range: 10*3/?L. The reference range was not used to interpret this result as normal/abnormal. GRAN MAT (NEUT) % (test code = 770-8) 64.4 % IMM GRAN % (test code = [id number]) 3.60 % LYMPH % (test code = 736-9) 23.5 % MONO % (test code = 5905-5) 7.3 % EOS % (test code = 713-8) 0.9 % BASO % (test code = 706-2) 0.3 % GRAN MAT x10^3(ANC) (test code = 3894093866) 7.19 10*3/uL 1.88-7.09 H IMM GRAN x10^3 (test code = 5755638219) 0.40 10*3/uL 0.00-0.06 H LYMPH x10^3 (test code = 731-0) 2.63 10*3/uL 1.32-3.29 MONO x10^3 (test code = 742-7) 0.82 10*3/uL 0.33-0.92 EOS x10^3 (test code = 711-2) 0.10 10*3/uL 0.03-0.39 BASO x10^3 (test code = 704-7) 0.03 10*3/uL 0.01-0.07 POLYCHROMASIA (test code = 00562-2) 2+ See_Comment [Automated messa ge] The system which generated this result transmitted reference range: 2+. The reference range was not used to interpret this result as normal/abnormal. GIANT PLATELETS (test code = 5908-9) Present See_Comment A [Automated Smart Eyea ge] The system which generated this result transmitted reference range: (none). The reference range was not used to interpret this result as normal/abnormal. Lab Interpretation (test code = 60523-7) [facility]normal [facility] [id number] 10:06:53* Test Item Value Reference Range Interpretation Comme nts NT-proBNP (test code = 4924243066) 117 pg/mL See_Comment [Automated message] The system which generated this result transmitted reference range: <=125. The reference range was not used to interpret this result as normal/abnormal. LUCILLE (test code = LUCILLE) Biotin has been reported to cause a negative bias, interpret results relative to patient's use of biotin. Lab Interpretation (test code = 26851-9) Normal [facility] Lake[facility]. METABOLIC PANEL (97039)2021-12-07 10:02:35* Test Item Value Reference Range Interpretation Comme nts NA (test code = 6484677133) 140 mmol/L 135-145 K (test code = 8827064544) 3.7 mmol/L 3.5-5.0 CL (test code = 8154616215) 104 mmol/L 98-108 CO2 TOTAL (test code = 2775177680) 31 mmol/L 23-31 AGAP (test code = 2381469686) 2-16 BUN (test code = 9589894632) 21 mg/dL 7-23 GLUCOSE (test code = 3456539844) 91 mg/dL 70-110 CREATININE (test code = 1382475045) 1.00 mg/dL 0.50-1.04 TOTAL BILI (test code = 3921354875) 0.3 mg/dL 0.1-1.1 CALCIUM (test code = 3660589274) 8.1 mg/dL 8.6-10.6 L T PROTEIN (test code = 5820090340) 5.9 g/dL 6.3-8.2 L ALBUMIN (test code = 0898112786) 3.4 g/dL 3.5-5.0 L ALK PHOS (test code = 9283632855) 87 U/L 34-122 ALTv (test code = 1742-6) 39 U/L 5-35 H AST(SGOT) (test code = 3182636965) 24 U/L 13-40 eGFR (test code = 4200284750) mL/min/1.73m2 LUCILLE (test code = LUCILLE) Association [...] imaging tests). Lab Interpretation (test code = 66106-7) [facility]normal [facility]2022-[facility] 10:02:35* Test Item Value Reference Range Interpretation Comme nts MAGNESIUM (test code = 7779825871) 2.2 mg/dL 1.7-2.4 Lab Interpretation (test cod e = 67854-5) Normal [facility] LakeVITAMIN B12, [id number] 22:18:47* Test Item Value Reference Range Interpretation Comme nts VIT B12 (test code = 8851775399) 979 pg/mL 240-930 H LUCILLE (test code = LUCILLE) Biotin has been reported to cause a positive bias, interpret results relative to patient's use of biotin. Lab Interpretation (test code = 43669-6) Abnormal [facility] LakePROCALCITONIN2022-04-05 21:47:27* Test Item Value Reference Range Interpretation Comme nts Procalcitonin (test code = 0952190181) 0.05 ng/mL <0.07 LUCILLE (test code = [...] lung abscess/empyema. For further information please refer to:[email or web address] Lab Interpretation (test code = 05911-2) Normal [facility] LakeVITAMIN D, [id number] 20:41:30* Test Item Value Reference Range Interpretation Comme nts VIT D 25OH (test code = 46591-5) <13 25-80 L LUCILLE (test code = LUCILLE) Deficiency: <20 ng/mLInsufficiency: 20-24 ng/mLOptimal: 25-80 ng/mL Lab Interpretation (test code = 99066-8) Abnormal [facility] LakeDI CONSULT [id number] 20:04:06 LEUKOCYTOSIS WITH ABSOLUTE NEUTROPHILIA AND INCREASED IMMATURE GRANULOCYTES/LEFT SHIFT, CONSISTENT WITH PATIENT'S KNOWN INFECTION. NORMOCYTIC, NORMOCHROMIC ANEMIA. MILD THROMBOCYTOSIS.[facility] [id number] 18:31:30* Test Item Value Reference Range Interpretation Comme nts FREE T3 (test code = 0709236427) 2.49 pg/mL 2.77-5.27 L Lab Interpretation (test cod e = 10329-3) Abnormal [facility]-REACTIVE [id number] 17:54:11* Test Item Value Reference Range Interpretation Comme nts CRP (test code = 6755818315) 0.2 mg/dL <0.8 Lab Interpretation (test cod e = 26982-0) Normal [facility] [id number] 13:49:44* Test Item Value Reference Range Interpretation Comme nts FREE T4 (test code = 2946457693) See_Comment L [Automated messa ge] The system which generated this result transmitted reference range: 0.78 - 2.20 ng/dL:. The reference range was not used to interpret this result as normal/abnormal. Lab Interpretation (test code = 78712-6) Abnormal [facility] WITH [id number] 12:20:38* Test Item Value Reference Range Interpretation [...] 31.8 g/dL 31.6-35.1 RDW-SD (test code = 89700-6) 48.5 fL 39.0-49.9 RDW-CV (test code = 788-0) 15.3 % 12.0-15.5 PLT (test code = 777-3) See_Comment [Automated message] The system which generated this result transmitted reference range: 166 - 358 10*3/?L. The reference range was not used to interpret this result as normal/abnormal. MPV (test code = 37924-1) 10.4 fL 9.5-12.9 NRBC/100 WBC (test code = 3597303045) See_Comment [Automated message] The system which generated this result transmitted reference range: 0.0 - 10.0 /100 WBCs. The reference range was not used to interpret this result as normal/abnormal. NRBC x10^3 (test code = 1289033970) See_Comment [Automated message] The system which generated this result transmitted reference range: 10*3/?L. The reference range was not used to interpret this result as normal/abnormal. GRAN MAT (NEUT) % (test code = 770-8) 74.0 % IMM GRAN % (test code = 9047769369) 3.20 % LYMPH % (test code = 736-9) 14.7 % MONO % (test code = 5905-5) 7.7 % EOS % (test code = 713-8) 0.1 % BASO % (test code = 706-2) 0.3 % GRAN MAT x10^3(ANC) (test code = 5905377485) 11.18 10*3/uL 1.88-7.09 H IMM GRAN x10^3 (test code = 8730277363) 0.48 10*3/uL 0.00-0.06 H LYMPH x10^3 (test code = 731-0) 2.22 10*3/uL 1.32-3.29 MONO x10^3 (test code = 742-7) 1.17 10*3/uL 0.33-0.92 H EOS x10^3 (test code = 711-2) <0.03 0.03-0.39 L BASO x10^3 (test code = 704-7) 0.04 10*3/uL 0.01-0.07 Lab Interpretation (test code = 68268-2) Abnormal [facility] LakeFERRITIN [id number] 11:45:10* Test Item Value Reference Range Interpretation Comme nts FERRITIN (test code = 7051061498) 16.1 ng/mL 11.0-264.0 LUCILLE (test code = LUCILLE) Biotin has been reported to cause a negative bias, interpret results relative to patient's use of biotin. Lab Interpretation (test code = 65407-3) Normal [facility] LakeTHYROID STIMULATING [id number] 11:41:28 * Test Item Value Reference Range Interpretation Comme nts TSH (test code = 8046156434) See_Comment L [Automated messa ge] The system which generated this result transmitted reference range: 0.45 - 4.70 mIU/L. The reference range was not used to interpret this result as normal/abnormal. Lab Interpretation (test code = 01756-0) Abnormal [facility] LakeSEDIMENTATION [id number] 11:30:34* Test Item Value Reference Range Interpretation Comme nts ESR (test code = 1494875188) See_Comment [Automated messa ge] The system which generated this result transmitted reference range: 0 - 20 mm/HR. The reference range was not used to interpret this result as normal/abnormal. Lab Interpretation (test code = 50021-4) Normal [facility] LakeTROPONIN [id number] 11:30:08* Test Item Value Reference Range Interpretation Comments TROPONIN I (test code = 3971813034) 0.023 ng/mL See_Comment [Automated message] The system [...] of biotin. Lab Interpretation (test code = 79329-4) Normal [facility]. METABOLIC PANEL (57712)2021-12-06 11:28:58* Test Item Value Reference Range Interpretation Comme nts NA (test code = 1107627862) 140 mmol/L 135-145 K (test code = 5005697093) 3.1 mmol/L 3.5-5.0 L CL (test code = 4611483499) 106 mmol/L 98-108 CO2 TOTAL (test code = 9331442767) 31 mmol/L 23-31 AGAP (test code = 3555161908) 2-16 BUN (test code = 7910289105) 24 mg/dL 7-23 H GLUCOSE (test code = 9169791502) 88 mg/dL 70-110 CREATININE (test code = 2847175317) 0.95 mg/dL 0.50-1.04 TOTAL BILI (test code = 4542476222) 0.3 mg/dL 0.1-1.1 CALCIUM (test code = 4090475210) 8.4 mg/dL 8.6-10.6 L T PROTEIN (test code = 3421240632) 5.7 g/dL 6.3-8.2 L ALBUMIN (test code = 3294338174) 3.3 g/dL 3.5-5.0 L ALK PHOS (test code = 3414317967) 83 U/L 34-122 ALTv (test code = 1742-6) 44 U/L 5-35 H AST(SGOT) (test code = 5834866117) 27 U/L 13-40 eGFR (test code = 0196054155) mL/min/1.73m2 LUCILLE (test code = LUCILLE) Association [...] imaging tests). Lab Interpretation (test code = 53431-1) Abnormal [facility] LakeN-TERMINAL [id number] 11:26:47* Test Item Value Reference Range Interpretation Comme nts NT-proBNP (test code = 1967917266) 442 pg/mL See_Comment H [Automated message] The system which generated this result transmitted reference range: <=125. The reference range was not used to interpret this result as normal/abnormal. LUCILLE (test code = LUCILLE) Biotin has been reported to cause a negative bias, interpret results relative to patient's use of biotin. Lab Interpretation (test code = 45193-8) Abnormal [facility] LakeIRON [id number] 11:19:22* Test Item Value Reference Range Interpretation Comme nts IRON (test code = 2912825349) 34 ug/dL 50-160 L TIBC (test code = 5160377318) 408 ug/dL 250-410 % FE SAT (test code = 2460981614) 8 % 20-50 L Lab Interpretation (test cod e = 85761-4) Abnormal [facility] LakeMAGNESIUM2022-04-05 11:18:47* Test Item Value Reference Range Interpretation Comme nts MAGNESIUM (test code = 4634244992) 1.9 mg/dL 1.7-2.4 Lab Interpretation (test cod e = 23744-4) Normal [facility] LakePHOSPHORUS2022-04-05 11:18:02* Test Item Value Reference Range Interpretation Comme nts PHOSPHORUS (test code = 0824940117) 3.3 mg/dL 2.5-5.0 Lab Interpretation (test cod e = 94081-7) Normal [facility] LakeLIPID PANEL (27935)(TOTAL CHOLESTEROL, TRIGLYCERIDES, HDL)2021-12-06 11:09:41* Test Item Value Reference Range Interpretation Comme nts CHOL (test code = 1040298761) 208 mg/dL 120-200 H HDL (test code = 4917005737) 99 mg/dL >50 HDLC RATIO (test code = 9013547728) See_Comment [Automated [employer]] The system which generated this result transmitted reference range: <=4.5. The reference range was not used to interpret this result as normal/abnormal. TRIG (test code = 9460229404) 172 mg/dL 30-170 H LDL CHOL (test code = 10250-8) 75 mg/dL See_Comment [Automated [employer]] The system which generated this result transmitted reference range: <=160. The reference range was not used to interpret this result as normal/abnormal. VLDL (test code = 5236400525) 34 mg/dL 5-60 Lab Interpretation (test code = 79849-9) Abnormal [facility] LakeURIC [id number] 11:09:21* Test Item Value Reference Range Interpretation Comme nts URIC ACID (test code = 3306926967) 6.1 mg/dL 2.9-6.0 H Lab Interpretation (test cod e = 76831-6) Abnormal [facility] LakeGLYCOSYLATED HEMOGLOBIN (A1C)2021-12-06 08:48:15* Test Item Value Reference Range Interpretation Comme nts HGB A1C (test code = 4548-4) 5.7 % 4.0-5.7 LUCILLE (test code = LUCILLE) Reference RangesNormal: <5.7%Prediabetes: 5.7 - 6.4%Diabetes: > 6.5% Lab Interpretation (test code = 90054-0) Normal [facility] WITH [id number] 01:01:58* Test Item Value Reference Range Interpretation [...] 32.2 g/dL 31.6-35.1 RDW-SD (test code = 89410-8) 46.4 fL 39.0-49.9 RDW-CV (test code = 788-0) 15.2 % 12.0-15.5 PLT (test code = 777-3) See_Comment H [Automated message] The system which generated this result transmitted reference range: 166 - 358 10*3/?L. The reference range was not used to interpret this result as normal/abnormal. MPV (test code = 96977-0) 10.6 fL 9.5-12.9 NRBC/100 WBC (test code = 4743480895) See_Comment [Automated message] The system which generated this result transmitted reference range: 0.0 - 10.0 /100 WBCs. The reference range was not used to interpret this result as normal/abnormal. NRBC x10^3 (test code = 0848974559) See_Comment [Automated message] The system which generated this result transmitted reference range: 10*3/?L. The reference range was not used to interpret this result as normal/abnormal. SEG % (test code = 15114-2) 83 % 33-76 H BAND % (test code = 41045-2) 4 % 0-1 H LYMPH % (test code = 00439-7) 7 % 14-54 L MONO % (test code = 11912-6) 5 % 0-4 H EOS % (test code = 10496-2) 1 % 0-3 ANC (test code = 753-4) 19.01 10*3/uL 1.88-7.09 H TOXIC CHANGES (test code = 803-7) Present A Lab Interpretation (test code = 56908-3) Abnormal [facility] LakeTROPONIN [id number] 00:45:54* Test Item Value Reference Range Interpretation Comments TROPONIN I (test code = 1414941849) 0.022 ng/mL See_Comment [Automated message] The system [...] of biotin. Lab Interpretation (test code = 10682-1) Normal [facility] LakeN-TERMINAL [id number] 00:42:51* Test Item Value Reference Range Interpretation Comme nts NT-proBNP (test code = 0758005036) 544 pg/mL See_Comment H [Automated message] The system which generated this result transmitted reference range: <=125. The reference range was not used to interpret this result as normal/abnormal. LUCILLE (test code = LUCILLE) Biotin has been reported to cause a negative bias, interpret results relative to patient's use of biotin. Lab Interpretation (test code = 17757-1) Abnormal [facility] LakeACTIVATED PARTIAL THRMPLAS [id number] 00:36:33* Test Item Value Reference Range Interpretation Comme [facility] APTT Patient (test code = 3173-2) See_Comment L [Automated message] The system which generated this result transmitted reference range: 23 - 38 Seconds. The reference range was not used to interpret this result as normal/abnormal. LUCILLE (test code = LUCILLE) The [facility] patient population mean normal value for aPTT is 30 seconds. Lab Interpretation (test code = 28875-8) Abnormal [facility] LakePROTHROMBIN TIME / [id number] 00:34:31* Test Item Value Reference Range Interpretation [...] the indications. Lab Interpretation (test code = 15885-7) Normal [facility] LakeCOMP. METABOLIC PANEL (49527)2021-12-06 00:34:11* Test Item Value Reference Range Interpretation Comme [facility] NA (test code = 2502873897) 141 mmol/L 135-145 K (test code = 8158874367) 3.9 mmol/L 3.5-5.0 CL (test code = 5603577275) 104 mmol/L 98-108 CO2 TOTAL (test code = 3815595216) 27 mmol/L 23-31 AGAP (test code = 5593232427) 2-16 BUN (test code = 5890451506) 24 mg/dL 7-23 H GLUCOSE (test code = 6428392262) 117 mg/dL 70-110 H CREATININE (test code = 6196506996) 0.96 mg/dL 0.50-1.04 TOTAL BILI (test code = 3762152059) 0.4 mg/dL 0.1-1.1 CALCIUM (test code = 2355124967) 8.9 mg/dL 8.6-10.6 T PROTEIN (test code = 9492995330) 6.5 g/dL 6.3-8.2 ALBUMIN (test code = 1061249116) 4.0 g/dL 3.5-5.0 ALK PHOS (test code = 9852753227) 107 U/L 34-122 ALTv (test code = 1742-6) 49 U/L 5-35 H AST(SGOT) (test code = 2829596480) 44 U/L 13-40 H eGFR (test code = 5183581678) mL/min/1.73m2 LUCILLE (test code = LUCILLE) Association [...] imaging tests). Lab Interpretation (test code = 86344-4) Abnormal [facility] LakePROCALCITONIN2022-04-04 02:29:14* Test Item Value Reference Range Interpretation Comme vivek Procalcitonin (test code = 5538590151) 0.11 ng/mL <0.08 H LUCILLE (test code [...] lung abscess/empyema. For further information please refer to:[email or web address] Lab Interpretation (test code = 83164-6) Abnormal [facility] LakeLactic Acid Whole [id number] 15:26:51* Test Item Value Reference Range Interpretation Comme nts LACTIC ACID (test code = 3506460265) 2.36 mmol/L 0.50-2.20 H Lab Interpretation (test cod e = 36112-3) Abnormal [facility] LakeCB with Arjzcmsmdcvb7082-44-57 09:45:08* Test Item Value Reference Range Interpretation [...] 32.1 g/dL 31.6-35.1 RDW-SD (test code = 31677-0) 48.3 fL 39.0-49.9 RDW-CV (test code = 788-0) 15.2 % 12.0-15.5 PLT (test code = 777-3) See_Comment [Automated message] The system which generated this result transmitted reference range: 166 - 358 10*3/?L. The reference range was not used to interpret this result as normal/abnormal. MPV (test code = 27550-8) 10.3 fL 9.5-12.9 NRBC/100 WBC (test code = 9958201196) See_Comment [Automated message] The system which generated this result transmitted reference range: 0.0 - 10.0 /100 WBCs. The reference range was not used to interpret this result as normal/abnormal. NRBC x10^3 (test code = 1958155249) See_Comment [Automated message] The system which generated this result transmitted reference range: 10*3/?L. The reference range was not used to interpret this result as normal/abnormal. GRAN MAT (NEUT) % (test code = 770-8) 90.3 % IMM GRAN % (test code = 0561263119) 1.20 % LYMPH % (test code = 736-9) 5.8 % MONO % (test code = 5905-5) 2.6 % EOS % (test code = 713-8) 0.0 % BASO % (test code = 706-2) 0.1 % GRAN MAT x10^3(ANC) (test code = 6399430098) 19.89 10*3/uL 1.88-7.09 H IMM GRAN x10^3 (test code = 7788057828) 0.27 10*3/uL 0.00-0.06 H LYMPH x10^3 (test code = 731-0) 1.28 10*3/uL 1.32-3.29 L MONO x10^3 (test code = 742-7) 0.57 10*3/uL 0.33-0.92 EOS x10^3 (test code = 711-2) <0.03 0.03-0.39 L BASO x10^3 (test code = 704-7) 0.03 10*3/uL 0.01-0.07 POLYCHROMASIA (test code = 77443-2) 2+ See_Comment [Automated message] The system which generated this result transmitted reference range: 2+. The reference range was not used to interpret this result as normal/abnormal. TOXIC CHANGES (test code = 803-7) Present A Lab Interpretation (test code = 21285-0) Abnormal [facility] Metabolic Panel (NA, K, CL, CO2, GLUCOSE, BUN, CREATININE, CA)2021-12-04 09:38:00* Test Item Value Reference Range Interpretation Comme nts NA (test code = 0247450048) 137 mmol/L 135-145 K (test code = 0780956114) 3.7 mmol/L 3.5-5.0 CL (test code = 4280520044) 107 mmol/L 98-108 CO2 TOTAL (test code = 6571378215) 21 mmol/L 23-31 L AGAP (test code = 5338175052) 2-16 BUN (test code = 4919297511) 19 mg/dL 7-23 GLUCOSE (test code = 5688857377) 149 mg/dL 70-110 H CREATININE (test code = 5406734052) 1.00 mg/dL 0.50-1.04 CALCIUM (test code = 0444898593) 8.8 mg/dL 8.6-10.6 eGFR (test code = 7049082987) mL/min/1.73m2 LUCILLE (test code = LUCILLE) Association [...] imaging tests). Lab Interpretation (test code = 13992-8) Abnormal [facility] LakeLactic Acid Whole [id number] 09:20:11* Test Item Value Reference Range Interpretation Comme nts LACTIC ACID (test code = 1200948071) 3.77 mmol/L 0.50-2.20 H Lab Interpretation (test cod e = 72760-6) Abnormal [facility] LakeURINALYSIS2022-04-02 23:35:41* Test Item Value Reference Range Interpretation Comme nts APPEARANCE (test code = 2009418260) Clear Clear COLOR (test code = 6087518013) Yellow Yellow PH (test code = 6122162318) 4.8-8.0 SP GRAVITY (test code = 7959759425) 1.003-1.030 GLU U QUAL (test code = 3983818649) Normal Normal BLOOD (test code = 6517999859) Negative Negative Interference fro m ascorbic acid may cause false negative results. KETONES (test code = 5470023107) Negative Negative PROTEIN (test code = 2887-8) Negative Negative UROBILIN (test code = 6482611599) Normal Normal BILIRUBIN (test code = 5090304412) Negative Negative NITRITE (test code = 6371999938) Negative Negative [place] (test code = 9504780325) Negative Negative RBC/HPF (test code = 2670901237) See_Comment [Curvo] The system which generated this result transmitted reference range: 0 - 3 HPF. The reference range was not used to interpret this result as normal/abnormal. WBC/HPF (test code = 2925991274) See_Comment [Curvo] The system which generated this result transmitted reference range: 0 - 5 HPF. The reference range was not used to interpret this result as normal/abnormal. BACTERIA (test code = 1765702442) Negative Negative SQ EPITH (test code = 3322304475) See_Comment H [Automated messa ge] The system which generated this result transmitted reference range: <=2 HPF. The reference range was not used to interpret this result as normal/abnormal. Lab Interpretation (test code = 28747-8) Abnormal [facility] WITH [id number] 21:54:52* Test Item Value Reference Range Interpretation [...] 31.6 g/dL 31.6-35.1 RDW-SD (test code = 07593-2) 48.1 fL 39.0-49.9 RDW-CV (test code = 788-0) 15.3 % 12.0-15.5 PLT (test code = 777-3) See_Comment [Automated message] The system which generated this result transmitted reference range: 166 - 358 10*3/?L. The reference range was not used to interpret this result as normal/abnormal. MPV (test code = 26178-0) 10.1 fL 9.5-12.9 NRBC/100 WBC (test code = 6896874738) See_Comment [Automated message] The system which generated this result transmitted reference range: 0.0 - 10.0 /100 WBCs. The reference range was not used to interpret this result as normal/abnormal. NRBC x10^3 (test code = 3832796394) See_Comment [Automated message] The system which generated this result transmitted reference range: 10*3/?L. The reference range was not used to interpret this result as normal/abnormal. GRAN MAT (NEUT) % (test code = 770-8) 90.9 % IMM GRAN % (test code = 1143191552) 0.80 % LYMPH % (test code = 736-9) 6.4 % MONO % (test code = 5905-5) 1.8 % EOS % (test code = 713-8) 0.0 % BASO % (test code = 706-2) 0.1 % GRAN MAT x10^3(ANC) (test code = 6959670929) 17.07 10*3/uL 1.88-7.09 H IMM GRAN x10^3 (test code = 4244150444) 0.15 10*3/uL 0.00-0.06 H LYMPH x10^3 (test code = 731-0) 1.20 10*3/uL 1.32-3.29 L MONO x10^3 (test code = 742-7) 0.34 10*3/uL 0.33-0.92 EOS x10^3 (test code = 711-2) <0.03 0.03-0.39 L BASO x10^3 (test code = 704-7) <0.03 0.01-0.07 TOXIC CHANGES (test code = 803-7) Present A Lab Interpretation (test code = 08811-3) [facility]normal [facility] Lake[facility]-TERMINAL [id number] 21:47:46* Test Item Value Reference Range Interpretation Comme nts NT-proBNP (test code = 8258869729) 662 pg/mL See_Comment H [Automated message] The system which generated this result transmitted reference range: <=125. The reference range was not used to interpret this result as normal/abnormal. LUCILLE (test code = LUCILLE) Biotin has been reported to cause a negative bias, interpret results relative to patient's use of biotin. Lab Interpretation (test code = 64377-2) Abnormal [facility] LakeTROPONIN [id number] 21:47:46* Test Item Value Reference Range Interpretation Comments TROPONIN I (test code = 9569882342) 0.007 ng/mL See_Comment [Automated message] The system [...] of biotin. Lab Interpretation (test code = 78248-3) Normal [facility] LakeAMYLASE2022-04-02 21:36:08* Test Item Value Reference Range Interpretation Comme nts KIERA (test code = 8856829350) 66 U/L 35-110 Lab Interpretation (test cod e = 52517-0) Normal [facility] LakeLIPASE2022-04-02 21:36:08* Test Item Value Reference Range Interpretation Comme nts LIPASE (test code = 7110567847) 83 U/L 0-220 Lab Interpretation (test cod e = 79419-3) Normal [facility] LakeCOMP. METABOLIC PANEL (57621)2021-12-03 21:36:08* Test Item Value Reference Range Interpretation Comme nts NA (test code = 9249230068) 137 mmol/L 135-145 K (test code = 0964655900) 4.5 mmol/L 3.5-5.0 CL (test code = 7654350557) 107 mmol/L 98-108 CO2 TOTAL (test code = 9375623819) 20 mmol/L 23-31 L AGAP (test code = 1715805470) 2-16 BUN (test code = 8568696444) 20 mg/dL 7-23 GLUCOSE (test code = 7046055037) 140 mg/dL 70-110 H CREATININE (test code = 2752796909) 0.97 mg/dL 0.50-1.04 TOTAL BILI (test code = 7799325013) 0.3 mg/dL 0.1-1.1 CALCIUM (test code = 9179815972) 8.9 mg/dL 8.6-10.6 T PROTEIN (test code = 2990272693) 7.1 g/dL 6.3-8.2 ALBUMIN (test code = 0313148436) 4.3 g/dL 3.5-5.0 ALK PHOS (test code = 2701350727) 97 U/L 34-122 ALTv (test code = 1742-6) 56 U/L 5-35 H AST(SGOT) (test code = 2225317980) 38 U/L 13-40 eGFR (test code = 3058338283) mL/min/1.73m2 LUCILLE (test code = LUCILLE) Association [...] imaging tests). Lab Interpretation (test code = 53317-8) [facility] [id number] 21:21:29* Test Item Value Reference Range Interpretation Comme nts PH (test code = 2) 7.35-7.45 PCO2 (test code = 4814749508) See_Comment L [Automated messa ge] The system which generated this result transmitted reference range: 35 - 45 mmHg. The reference range was not used to interpret this result as normal/abnormal. PO2 (test code = 5384834103) See_Comment [Automated messa ge] The system which generated this result transmitted reference range: 80 - 100 mmHg. The reference range was not used to interpret this result as normal/abnormal. HCO3 (test code = 0837246283) See_Comment [Automated messa ge] The system which generated this result transmitted reference range: 22 - 26 mEq/L. The reference range was not used to interpret this result as normal/abnormal. BE (test code = 9550768569) See_Comment [Automated messa ge] The system which generated this result transmitted reference range: -3.0 - 3.0 mEq/L. The reference range was not used to interpret this result as normal/abnormal. LACTIC ACID (test code = 5286046097) 2.96 mmol/L 0.50-2.20 H Lab Interpretation (test code = 09359-3) [facility] (NA, K, CL, CO2, GLUCOSE, BUN, CREATININE, CA)2021-11-10 09:40:55* Test Item Value Reference Range Interpretation Comme nts NA (test code = 3873169506) 138 mmol/L 135-145 K (test code = 8817569046) 3.4 mmol/L 3.5-5.0 L CL (test code = 0741943359) 107 mmol/L 98-108 CO2 TOTAL (test code = 3560074332) 25 mmol/L 23-31 AGAP (test code = 7342120218) 2-16 BUN (test code = 1612057099) 15 mg/dL 7-23 GLUCOSE (test code = 9693867230) 110 mg/dL 70-110 CREATININE (test code = 2043799995) 0.81 mg/dL 0.50-1.04 CALCIUM (test code = 7005520302) 7.8 mg/dL 8.6-10.6 L eGFR (test code = 3710239789) mL/min/1.73m2 LUCILLE (test code = LUCILLE) Association [...] imaging tests). Lab Interpretation (test code = 78853-4) Abnormal [facility] with Yhhmzwprswrv2378-08-94 09:25:30* Test Item Value Reference Range Interpretation Comme nts WBC (test code = 6690-2) See_Comment H [Automated [employer]] The system which generated this result transmitted reference range: 4.30 - 11.10 10*3/?L. The reference range was not used to interpret this result as normal/abnormal. RBC (test code = 789-8) See_Comment L [Automated [employer]] The system which generated this result transmitted [...] g/dL 31.6-35.1 L RDW-SD (test code = 33229-5) 57.2 fL 39.0-49.9 H RDW-CV (test code = 788-0) 17.0 % 12.0-15.5 H PLT (test code = 777-3) See_Comment [Automated messa ge] The system which generated this result transmitted reference range: 166 - 358 10*3/?L. The reference range was not used to interpret this result as normal/abnormal. MPV (test code = 88612-5) 9.2 fL 9.5-12.9 L NRBC/100 WBC (test code = 5870427441) See_Comment [Automated [employer] ssage] The system which generated this result transmitted reference range: 0.0 - 10.0 /100 WBCs. The reference range was not used to interpret this result as normal/abnormal. NRBC x10^3 (test code = 4255122566) See_Comment [Automated messa ge] The system which generated this result transmitted reference range: 10*3/?L. The reference range was not used to interpret this result as normal/abnormal. GRAN MAT (NEUT) % (test code = 770-8) 72.2 % IMM GRAN % (test code = 2580706814) 1.30 % LYMPH % (test code = 736-9) 18.9 % MONO % (test code = 5905-5) 6.3 % EOS % (test code = 713-8) 1.2 % BASO % (test code = 706-2) 0.1 % GRAN MAT x10^3(ANC) (test code = 7944463870) 8.06 10*3/uL 1.88-7.09 H IMM GRAN x10^3 (test code = 5718533520) 0.14 10*3/uL 0.00-0.06 H LYMPH x10^3 (test code = 731-0) 2.10 10*3/uL 1.32-3.29 MONO x10^3 (test code = 742-7) 0.70 10*3/uL 0.33-0.92 EOS x10^3 (test code = 711-2) 0.13 10*3/uL 0.03-0.39 BASO x10^3 (test code = 704-7) <0.03 0.01-0.07 Lab Interpretation (test code = 65509-1) [facility]normal [facility] Whole [id number] 09:22:39* Test Item Value Reference Range Interpretation Comme [facility] LACTIC ACID (test code = 0693816791) 3.32 mmol/L 0.50-2.20 H Lab Interpretation (test cod e = 28115-1) Abnormal [facility] THRMPLAS [id number] 02:13:42* Test Item Value Reference Range Interpretation Comme [facility] APTT Patient (test code = 3173-2) See_Comment L [Automated [employer] ge] The system which generated this result transmitted reference range: 26 - 36 Seconds. The reference range was not used to interpret this result as normal/abnormal. Lab Interpretation (test code = 14700-0) Abnormal [facility] Lake[facility] / [id number] 02:13:42* Test Item Value Reference Range Interpretation Comme [facility] PROTIME PATIENT (test code = 5964-2) See_Comment [Automated [employer]] The system which generated this result transmitted reference range: 10.1 - 12.6 Seconds. The reference range was not used to interpret this result as normal/abnormal. INR (test code = 6301-6) Normal INR <1.1; Warfarin Therapeutic range 2.0 to 3.0 or 2.5 to 3.5, depending upon the indications. Lab Interpretation (test code = 31743-0) Normal [facility] Lake[facility]-NLGOT4656-25-69 02:13:42* Test Item Value Reference Range Interpretation Comments D-DIMER (test code = 6651143749) See_Comment H [Automated message] The system which [...] a diagnosis. Lab Interpretation (test code = 83968-0) Abnormal [facility]. METABOLIC PANEL (93921)2021-11-10 01:57:17* Test Item Value Reference Range Interpretation Comme nts NA (test code = 0471205015) 139 mmol/L 135-145 K (test code = 5476940839) 3.9 mmol/L 3.5-5.0 CL (test code = 9735564728) 106 mmol/L 98-108 CO2 TOTAL (test code = 2453451092) 27 mmol/L 23-31 AGAP (test code = 6346781560) 2-16 BUN (test code = 5709503007) 17 mg/dL 7-23 GLUCOSE (test code = 4828139762) 135 mg/dL 70-110 H CREATININE (test code = 7187497705) 0.72 mg/dL 0.50-1.04 TOTAL BILI (test code = 8914436817) 0.3 mg/dL 0.1-1.1 CALCIUM (test code = 0551612572) 8.1 mg/dL 8.6-10.6 L T PROTEIN (test code = 2700726401) 5.6 g/dL 6.3-8.2 L ALBUMIN (test code = 8322697147) 3.3 g/dL 3.5-5.0 L ALK PHOS (test code = 9369021203) 126 U/L 34-122 H ALTv (test code = 1742-6) 47 U/L 5-35 H AST(SGOT) (test code = 6369305724) 27 U/L 13-40 eGFR (test code = 3759723472) mL/min/1.73m2 LUCILLE (test code = LUCILLE) Association [...] imaging tests). Lab Interpretation (test code = 39331-3) [facility]normal [facility] LACTIC [id number] 01:51:44* Test Item Value Reference Range Interpretation Comme nts PH (test code = 2) 7.35-7.45 PCO2 (test code = 6545474752) See_Comment [Automated [employer]] The system which generated this result transmitted reference range: 35 - 45 mmHg. The reference range was not used to interpret this result as normal/abnormal. PO2 (test code = 2818389633) See_Comment L [Automated messa ge] The system which generated this result transmitted reference range: 80 - 100 mmHg. The reference range was not used to interpret this result as normal/abnormal. HCO3 (test code = 2449218747) See_Comment [Automated messa ge] The system which generated this result transmitted reference range: 22 - 26 mEq/L. The reference range was not used to interpret this result as normal/abnormal. BE (test code = 1638726387) See_Comment [Automated messa ge] The system which generated this result transmitted reference range: -3.0 - 3.0 mEq/L. The reference range was not used to interpret this result as normal/abnormal. LACTIC ACID (test code = 6056692790) 4.25 mmol/L 0.50-2.20 H QUES Lab Interpretation (test code = 01578-0) Abnormal [facility] WITH [id number] 01:50:58* Test Item Value Reference Range Interpretation [...] g/dL 31.6-35.1 L RDW-SD (test code = 51634-2) 55.7 fL 39.0-49.9 H RDW-CV (test code = 788-0) 16.8 % 12.0-15.5 H PLT (test code = 777-3) See_Comment [Automated message] The system which generated this result transmitted reference range: 166 - 358 10*3/?L. The reference range was not used to interpret this result as normal/abnormal. MPV (test code = 59579-1) 9.5 fL 9.5-12.9 NRBC/100 WBC (test code = 8989961029) See_Comment [Automated message] The system which generated this result transmitted reference range: 0.0 - 10.0 /100 WBCs. The reference range was not used to interpret this result as normal/abnormal. NRBC x10^3 (test code = 6855082527) <0.01 See_Comment [Automated message] The system which generated this result transmitted reference range: 10*3/?L. The reference range was not used to interpret this result as normal/abnormal. GRAN MAT (NEUT) % (test code = 770-8) 84.7 % IMM GRAN % (test code = 7538102870) 0.80 % LYMPH % (test code = 736-9) 10.9 % MONO % (test code = 5905-5) 3.4 % EOS % (test code = 713-8) 0.1 % BASO % (test code = 706-2) 0.1 % GRAN MAT x10^3(ANC) (test code = 1162286022) 11.84 10*3/uL 1.88-7.09 H IMM GRAN x10^3 (test code = 7779928560) 0.11 10*3/uL 0.00-0.06 H LYMPH x10^3 (test code = 731-0) 1.52 10*3/uL 1.32-3.29 MONO x10^3 (test code = 742-7) 0.47 10*3/uL 0.33-0.92 EOS x10^3 (test code = 711-2) <0.03 0.03-0.39 L BASO x10^3 (test code = 704-7) <0.03 0.01-0.07 Lab Interpretation (test code = 21230-0) Abnormal [facility] [id number] 21:38:57* Test Item Value Reference Range Interpretation Comme nts Case Report (test code = 6680481528) Non-Gynecologic Cytology ?Case: [id number] ?Authorizing Provider: ?Anaya Kline MD ? ? Collected: ? 10/21/2021 1249 ?Ordering Location: ? ? [facility] ?Received: ?10/21/2021 1257 ? Medicine/Surgery [facility] 7B ?Pathologist: ? Glenna Alejandra MD ? Specimen: ? ?LUNG, LEFT UPPER LOBE, BRONCHOALVEOLAR LAVAGE ? Final Diagnosis (test code = 1654782359) s5ssmJXoNIFtw6rtYONmsHVa ZzEwMzNcZnRuYmpcdWMxIHtc cnRmMVxlcGljOTYwMVxhbnNp PPEvyIZxH7OeuczhKJfkYK7b BA0ndWwjeVQflFKaDRUjLuSp c4hxx359gYUhr4ruEYDMojhr lWz3wDvfZ22mw7E1IhhbK2uc ZWQwXGdyZWVuMFxibHVlMDt9 XHBhcGVydzEyMjQwXHBhcGVy dBJ7CGEtBQ8zliukYZwiQWst QQVvvwY5LXVuwYEtT6HcLXIk XK6skbzcUBI7HKlqYKRdEJE9 QvNyRMIts7Fxnvb0AqUxpYKs ZFxwbGFpblxmczIwXHBhclxi IEExLiAgTFVORywgTEVGVCBV YZTHJwYAG5CXZrASAz4UA5uC ZDsVDJ0HTAVlKYINBIzVNdit KBIgPeRwZZFnTbefIdTrAa6f YNDWRMqBRE6BPXUIQGfHQUmO FA9RUICGYTYeOGqnWJAeL9VZ RXODDM4FNfKvCHJveysuBbRc sLXvuNpfzeJrWTvak0ApM8Oz MjAwMFxhbnNpXGRlZmxhbmcx PHEaPIY5coWkRCFoPGagEETe OYieJe8hrVQttJexWxMcZRMu u0yqonBLOItwCoGkS973FOMm ONigp6lom0UrRYDpyTJhi5I5 XJGQzydzyUn5m9vdZwDlUcX7 mWJiTBngS1gyrtQryZCdF2Tt gPHuaQp3mVsvD69me6E3Hrmy D3rxKNBuGZLuP7TvLY0bHTJf Bnc8IPF3GMT6EEEmVUNkD4Jx IC3xJGLsoQVvQEf7e4nnnEwj VCNlUDN2m3nmIYekwvJ7GF5v lm0gfLw2d2xbzeTgSGDcIHXk tLXMDOVkH6PfmPtaGg8xbLq8 zNmhNricUXO7Nad3YO7prd25 hth2yFeuVWZktkypIyN6JSrw FSDfcarcTXn6TDrcUQQoyEN6 ZNLttRYqA4TpYVTgFI8enex4 FQG4QTsvVHOcIzE7XSFfaNYy IJRyyBwfXMokv261KQP6MaCv AK4gY2Zsy4I3qH2haDDvLPLj hEUaMsGjSCJkoi7abFVlZNof j1HuPXE9xiC5fMYdzMXiSMAh TH10Qplde9LuRyfrTQQ6YHPb lhNdy2Ilt2juAeAivtFjR1lg M3GbMIQjGPUrVQViGoObnxGw r7Yxa8TegAGqqDs0f9enOZYd OIIwvYryw4evJKX9CYByG3F4 mUXkz4zvNPkdZNMruQN7ewK8 FZXbeFFdR7OklH5dBXLkQL8s ivy4h9rrVMI7LTclBOMsWaY1 alD5STSmcBLyRLMtuMtbYNcw q991BIB7UlSdGOMtf8BwD6Ip dFzgU44jqKzeB89nNVQirRgx hP7ckJvvuW8cDdTbQiKfYAbr bFxwbGFpblxmMVxmczIwXGxh fxiyOPFbDLgnV5rxUzCdKHIf dOwxTJbug6OrAGVfUBPiCxsm czIwXHBhciBJIGhhdmUgcGVy d14gGVkceFFrSFCqVZlgPRCl xPkxp8WqE7etGO7aF8JwtVKu cbMqvuRjANymAVTsh0r1dODt vHdwn1ZigVGyZV93ykYqXSLe ASC3HZLfx3ztOE52fxkcGbJb fB43drAdeyBkHELif2yyB3ji fOPci2Wpy5TchoXqUYseh7Es XF7fuVGkhvmxnVG7OVWmpGEk whCdfoS9aMbiHAVfaR0fhY3v bVrixM9oOvSuLtXyVMilRF8y SZOkB5etfGAfIUHyHIVdU5mr UtSwlO6gbIovIyooilR3VVKb cn19 Final Diagnosis Comment (test code = 1351535137) s4hnjFDdYIVpiAQ7CaApHYPg g2zjv4LvoWCnkOLfGYvfhFHz irUvol92nXG3aZ27AL4aOGPt DyX1KWKzhgX4Har9WJUdZCLh kEBdF311d3sfm2cpfmKqxYI0 GIXkAYEmI7ZyWG0pTULedNJv Y41zpVQiJIN5MGYiFTMksBHj BUVrDED6VIRlnAGeN9rsVGHz RH7entuySFhvLJipJFWboVZ6 FNRueITzA8SvPRDdWQtwGQCb qxq7VmKrNr1dpWYlqKlpUUqr BMFpWVYiAIebIPGaHgIyG83y XFSbJVEnq5ngjX7axKw4KCMm x89esT4xRVZdjEfilVrgxWYg ASsrsqMuomAqWxA6OJFzkuBx gZNvIZ9eO7WnbEhmF1DkKiOL NRYqYBnrn3YbPC6fNVR6rGYm QrVymwF3hX4kqEKqrtBbEDBd FoVrV3YtXH2pIA1chTrqwxCl dCBjZWxscyBpZGVudGlmaWVk ZpgjOMXbQ3NgKGJmyw6= Clinical Information (test code = 9609315096) 1. Pneumonia / covid / SARS Gross Description (test code = 8992016019) l0klmIInDBGlvKW6JjNsUOOx k5mff5TbfOBfaVKbZOejeVWz evYvri75bCP4gV52YX6vCDLd TtC9IFUhvpI0Dlp6OBItEPOq cFNhR870k1pam8aurtHqxTN5 WOQlHMJuE2NdEY5fNGNunTVm M87fvOTzNFD4RMNjKUThnYXd WBRqTKQ3JBCgiCEzH0kpSPRy AM4bfpsxORanZAetFHSvbEK5 HXEoiAMcU7HwDNUqENdiLZZk hdy3IwHdTy1lcNQtkNvsQJik GVZzs3ypVTWodVJlMJC2ZKzp oMIzTMWeFUPsQQn6FDOfWPjs wABtDE9dqRcuRrycyYcxa1Xh dCBcXGlkIDUxMDAyIFxcZGIg N3RATTGnZeRyTpi8DMUfLHb4 FXl0WZ6AOmZdIXBkRcb0DIAw QeEeWIl6WOntPR6ESVA7IkT8 JCFcDrbuUEUqWdNdQMw4QCBg XFxmbCBcXGYgQXJpYWwgXFxm zkCaHUDiVP8knTnulQKsozeh czIwXHBhclxmczIyXHBhciBB ZR4jFTxUYiwoKMjYHyRcTOUP IREkCP2SOLkkNpVMMuVEA9DM VkVPTEFSIExBVkFHRVxwYXJc RpUvOPfaUjDyIlEhBTe7YGMr LdWpw6izaRHgX7RfeqVlRMSa cQChDOV8XISiG6Oej4BsT3gs VSNuPlr8sNHndcOhRVx8KEId SxUxt7bamNLfBKRlDGXxxaMi QIPoq7pjOBQeHDfLjIXvs0Kt ypTpfjYtNSCwuJdjkaP2LARu Pr2nSG9ae6AtwJIcdoIcFXII IOGiblnbh4bft1Ydk0SupV8j ZClcZnMyMlxjZjAgIHtcZXBp J5OmT5DmzpJ5k5cktTecb5Za rTDcZN0chRKpiD== Disclaimer (test code = 0430689765) e5zxnZDuXJFgw5dfSQAkhHVo ZzEwMzNcZnRuYmpcdWMxIHtc qgSvFIywt0WyW0KyLvRbGVfg bnNpXGRlZmxhbmcxMDMzXGZ0 nuDtDWEzZGhfBHNaMPxwJx5i uBBpwAbuJmHrDOTgu4krezCA TDyqLcRaQ497OPAyKMdjq6oj w6AfYRTedGXyx8H2CWTUzafw aCl6yKlcZ21tl8P5TebrZ9kh UDGePAYrB7ZrPX0vGWLcNml1 MBM7TQE5NGKbGHCvF3XfHX2d HFHvaVKyGLz5t0rdoBrfRKPu HEE2l3yqAXleaqSzZE7sar2t rQe8c1jnsyReBXNvPFLqvGPQ AVOkP5OtrVwzWr6nbOj7iIvv WzzoNHQ9Dra2TI7xro73zbt0 qLqxBNCfrxgdEyV6XPqfJHGr izpaPGe9XHwcZNFxsUR7AENl jGVsS7XiWHLnMV6orok1RLF0 DUjpQYUmQdS9XMQeqTXyHQMh uRnmGXbpn098CQZ1VpUfSR9n N7Rkn6R8wW3bsZAaAKWftPKp OcEaJELsiu0qwXLsSXmsu7No IFB6liY5jINgqXWxYHOgYQ99 Kxote8AoMdghi3KzR22nmOU1 YRves3tiST5eIkT1xnSpMPtv w1mxjG3cAxS9ZScmJZ6dIB5o ZEUgrL3uubsvDGEtRlGbbtwf YZRjjHwsujCcGt3eiZnbUMT7 NNsiP0vwbW3zMuM7IUfzH4fv vO0gQAc3ZKtahDM3DJDdnD6a RD3dhkrag9erFOmvZQcsSQUx pmY3mnY1CHOuqUNnR0ExjQ6q IXOfKZ3tyhjsv8bcHPJ7JTtv CQVqEJN7NnLmTFHok6Rueiv3 JdTgn7QzlDOwTIrcI40wl261 NUAqlnTpW5rqgWAbxldafFWm tjdwEVyvepT4IFSpcuPkk9Ld JGBrCRA5RIydLBpxmWSeEIUj mOqde5mvS5AsdEMeQJCnDZzn XGYxXGZzMjBcbGFuZzEwMzNc aGljaFxmMVxkYmNoXGYxXGxv B1fzUeLpK3ZkSBPdCnFmrWTz I0btMKuzcuHxAYLpgqNvrHN1 YStgU6k2TWUfrwWxjAh2jgAb CyUzOPPvBFH7WXbvoKIhAYLm c0UrizxehBCuLv0vvUTsBUGv tU2mKBRlEFZoKVvrUT6zrNc0 PZQKpKVjtJOiSfGWLUMhDQ15 yxOeRLBOeydeq7Z8ALmfWYMb n2EzuHVeN8hcs9RoCXZfe61i EV4bw0J1m4szVQJ6KK5iy4Sn CUZfnLXsbVVoVNZmp0Qxgpmg j5GpEYGiixTeg8RaIMHiskUt cEYbCMAovqLmsy3ukbWmILKh WGIvL8ApunhdqLotimJeNGPx vf1uotZoRQO7MEFDWOEqCYNy b3IjzT1dxCSREYR6iQBjqo1q ipLEuNAjFDQolz25OBNsEM3r U2obMXLrXUGilbWlrNMqw8Ef DZGbhXB8fRAnUP8GKrVDk75m IGFuZCBEcnVnIEFkbWluaXN0 hpH4dW7hYIoSKVEpFqw+IFRo YQWADPAoLA7pakRzx9PsuyWh nLudBJXxzMDur0JqvAJss9Ox jDfrq7ZimPEtyJEcTT4wYCVc clxwYXIgVVRNQiBMYWJvcmF0 j8VfISQqZNKdQQS2yGmjpxw7 GDOexB7nTBUhZ7kopeupJStv IWWlf4BoqA8oyJCYmHRaz0Gc vCQjpQGEuUJmYD4mbrYsLAbN JXaOTZE8sgLwOMWty8ExJHzm F3xgI51uxProuTh2tXW2ZRB3 cA4rVqr+IFxwYXJccGFyIEFw sQNztRUsFHSshJghxnUsA9Gt ttDzgR2jsWLxijDkTX6jKL8p L8L1jAIwQQQsciYuv5ekRExk dmUgYmVlbiByZXZpZXdlZCBm q5VuBRuiURU1CAvlajMyysZw dWRpbmcgSCZFLCBTcGVjaWFs XCH8YRfcjbOlitDxXH0qrV9c gWnclS3jlOTniME0bjyuLNTi CKMkzXqsLLBlNW6glMFiUKEk bkMJeBjcoDZzqV4rP2WvAWUb CZBuuj3yMYSmuY4vCPebm2Bs xjklHXVwUCObUJQgcoHmyr0t TVZqgZSDJU3WSBuodMOlz1Vr knQwC8gBXFW3SUGrQwLkNhkp QKStqKUfcRMxBNGpnd88SBGu lS2uyLirNHTwuH0aiN1liHwk yF9vEhAbFrRcUIsyAW4iVTDi M6fdpKOrBBBgASAlS6vdSbRt zC6kePssKJweMuWrZcJnZUog YXJ9fQ== Embedded Images (test code = 5617788824) [facility] [id number] 20:07:20* Test Item Value Reference Range Interpretation Comme nts SHIRA (test code = 9236865024) Negative Negative LUCILLE (test code = LUCILLE) [...] reported separately. Lab Interpretation (test code = 21541-6) Normal [facility] (NA, K, CL, CO2, GLUCOSE, BUN, CREATININE, CA)2021-10-24 13:05:02* Test Item Value Reference Range Interpretation Comme nts NA (test code = 4082557699) 134 mmol/L 135-145 L K (test code = 8729674429) 4.5 mmol/L 3.5-5.0 CL (test code = 0211286476) 99 mmol/L 98-108 CO2 TOTAL (test code = 5120359868) 30 mmol/L 23-31 AGAP (test code = 4971550344) 2-16 BUN (test code = 3980690519) 23 mg/dL 7-23 GLUCOSE (test code = 2578012448) 118 mg/dL 70-110 H CREATININE (test code = 7043521503) 0.71 mg/dL 0.50-1.04 CALCIUM (test code = 5142096561) 8.2 mg/dL 8.6-10.6 L eGFR (test code = 8435591050) mL/min/1.73m2 LUCILLE (test code = LUCILLE) Association [...] imaging tests). Lab Interpretation (test code = 31212-8) Abnormal [facility] METABOLIC PANEL (NA, K, CL, CO2, GLUCOSE, BUN, CREATININE, CA)2021-10-24 13:05:02* Test Item Value Reference Range Interpretation Comme nts NA (test code = 6789137313) 134 mmol/L 135-145 L K (test code = 7753652651) 4.5 mmol/L 3.5-5.0 CL (test code = 4473988808) 99 mmol/L 98-108 CO2 TOTAL (test code = 9423468205) 30 mmol/L 23-31 AGAP (test code = 0560640360) 2-16 BUN (test code = 0332711766) 23 mg/dL 7-23 GLUCOSE (test code = 4216248561) 118 mg/dL 70-110 H CREATININE (test code = 4121576894) 0.71 mg/dL 0.50-1.04 CALCIUM (test code = 1647134635) 8.2 mg/dL 8.6-10.6 L eGFR (test code = 9620072321) mL/min/1.73m2 LUCILLE (test code = LUCILLE) Association [...] imaging tests). Lab Interpretation (test code = 06576-0) [facility]normal [facility] [id number] 12:51:39* Test Item Value Reference Range Interpretation [...] result as normal/abnormal. MPV (test code = 85821-3) 10.1 fL 9.5-12.9 RDW-CV (test code = 788-0) 14.2 % 12.0-15.5 RDW-SD (test code = 24808-3) 43.8 fL 39.0-49.9 NRBC x10^3 (test code = 8457695051) See_Comment [Automated messa ge] The system which generated this result transmitted reference range: 10*3/?L. The reference range was not used to interpret this result as normal/abnormal. NRBC/100 WBC (test code = 4427069068) See_Comment [Automated messa ge] The system which generated this result transmitted reference range: 0.0 - 10.0 /100 WBCs. The reference range was not used to interpret this result as normal/abnormal. IPF % (test code = 6466599421) Lab Interpretation (test code = 85346-3) Abnormal [facility] WITHOUT [id number] 12:51:39* Test Item Value Reference Range Interpretation [...] result as normal/abnormal. MPV (test code = 35037-7) 10.1 fL 9.5-12.9 RDW-CV (test code = 788-0) 14.2 % 12.0-15.5 RDW-SD (test code = 85464-4) 43.8 fL 39.0-49.9 NRBC x10^3 (test code = 7421124287) See_Comment [Automated Smart [employer] ge] The system which generated this result transmitted reference range: 10*3/?L. The reference range was not used to interpret this result as normal/abnormal. NRBC/100 WBC (test code = 7402294221) See_Comment [Automated [employer]] The system which generated this result transmitted reference range: 0.0 - 10.0 /100 WBCs. The reference range was not used to interpret this result as normal/abnormal. IPF % (test code = 3068536097) Lab Interpretation (test code = 55970-9) [facility]normal [facility] T[facility]BERCULOS[facility] COMPLEX PCR 2021-10-23 16:23:29* Test Item Value Reference Range Interpretation Comme nts Mycobacterium tuberculosis DNA (test code = 84933-5) Negative Negative LUCILLE (test code = LUCILLE) Method performance specifications have not been established for specimens other than SPUTUM. Results for other tested specimen types should be interpreted based on clinical context. Lab Interpretation (test code = 66344-1) Normal [facility] TUBERCULOSIS COMPLEX PCR 2021-10-23 16:23:29* Test Item Value Reference Range Interpretation Comme nts Mycobacterium tuberculosis DNA (test code = 47619-8) Negative Negative LUCILLE (test code = LUCILLE) Method performance specifications have not been established for specimens other than SPUTUM. Results for other tested specimen types should be interpreted based on clinical context. Lab Interpretation (test code = 82252-6) Normal [facility] LakeRESPIRAT[facility] PANEL BY [id number] 20:36:40* Test Item Value Reference Range Interpretation Comme nts Adenovirus (test code = 56619-0) Negative Negative Coronavirus HKU1 (test code = 95560-3) Negative Negative Coronavirus NL63 (test code = 04355-5) Negative Negative Coronavirus 229E (test code = 84869-6) Negative Negative Coronavirus OC43 (test code = 69653-9) Negative Negative Human Metapneumovirus (test code = 02397-6) Negative Negative Human Rhinovirus/Enterovirus (test code = 87223-3) Negative Negative Influenza A (test code = 24522-7) Negative Negative Influenza B (test code = 84526-9) Negative Negative Parainfluenza Virus 1 (test code = 74681-8) Negative Negative Parainfluenza Virus 2 (test code = 97767-3) Negative Negative Parainfluenza Virus 3 (test code = 62236-4) Negative Negative Parainfluenza Virus 4 (test code = 44289-1) Negative Negative Respiratory Syncytial Virus (test code = 51287-1) Negative Negative Bordetella parapertussis (test code = 36864-2) Negative Negative Bordetella pertussis (test code = 82014-6) Negative Negative Chlamydia pneumoniae (test code = 96708-5) Negative Negative Mycoplasma pneumoniae (test code = 38900-0) Negative Negative LUCILLE (test code = LUCILLE) Negative:A negativ e result does not rule-out infection. ?This assay does not test for all potential infectious agents. ? Positive:A positive test result does not necessarily indicate the presence of viable organism. ? Lab Interpretation (test code = 84478-8) Normal [facility] PAN[facility] BY [id number] 20:36:40* Test Item Value Reference Range Interpretation Comme nts Adenovirus (test code = 97013-6) Negative Negative Coronavirus HKU1 (test code = 85746-3) Negative Negative Coronavirus NL63 (test code = 03631-8) Negative Negative Coronavirus 229E (test code = 35722-1) Negative Negative Coronavirus OC43 (test code = 84911-1) Negative Negative Human Metapneumovirus (test code = 25338-8) Negative Negative Human Rhinovirus/Enterovirus (test code = 76237-5) Negative Negative Influenza A (test code = 83646-4) Negative Negative Influenza B (test code = 45540-6) Negative Negative Parainfluenza Virus 1 (test code = 79585-0) Negative Negative Parainfluenza Virus 2 (test code = 70951-9) Negative Negative Parainfluenza Virus 3 (test code = 04611-8) Negative Negative Parainfluenza Virus 4 (test code = 46388-0) Negative Negative Respiratory Syncytial Virus (test code = 96695-5) Negative Negative Bordetella parapertussis (test code = 65479-5) Negative Negative Bordetella pertussis (test code = 81210-0) Negative Negative Chlamydia pneumoniae (test code = 79541-2) Negative Negative Mycoplasma pneumoniae (test code = 24675-7) Negative Negative LUCILLE (test code = LUCILLE) Negative:A negativ e result does not rule-out infection. ?This assay does not test for all potential infectious agents. ? Positive:A positive test result does not necessarily indicate the presence of viable organism. ? Lab Interpretation (test code = 44830-8) Normal [facility] LakeANTI-NUCLEAR ANTIBODY-PATHOLOGIST [id number] 19:52:54ANA - Pathologist InterpretationANA HEp-2 IIFA Pathologist [...] female gender. Clinical correlation is recommended. ? (https://pubmed.ncbi.nlm.nih.gov/75692769/) ? If the patient's clinical condition changes/progresses, [...] indicated. Juanis Mata MD ?10/22/2021 ?1:52 PM [facility] SERVICESH[facility] LakeANTI-NUCLEAR ANTIBODY- PATHOLOGIST [id number] 19:52:54ANA - Pathologist InterpretationANA HEp-2 IIFA Pathologist [...] female gender. Clinical correlation is recommended. ? (https://pubmed.ncbi.nlm.nih.gov/74774070/) ? If the patient's clinical condition changes/progresses, [...] indicated. Juanis Mata MD ?10/22/2021 ?1:52 PM [facility] [id number] 11:43:17* Test Item Value Reference Range Interpretation [...] 32.1 g/dL 31.6-35.1 RDW-SD (test code = 03983-1) 46.8 fL 39.0-49.9 RDW-CV (test code = 788-0) 14.6 % 12.0-15.5 PLT (test code = 777-3) See_Comment H [Automated message] The system which generated this result transmitted reference range: 166 - 358 10*3/?L. The reference range was not used to interpret this result as normal/abnormal. MPV (test code = 07888-1) 10.2 fL 9.5-12.9 NRBC/100 WBC (test code = 9349285627) See_Comment [Automated message] The system which generated this result transmitted reference range: 0.0 - 10.0 /100 WBCs. The reference range was not used to interpret this result as normal/abnormal. NRBC x10^3 (test code = 7870188161) <0.01 See_Comment [Automated message] The system which generated this result transmitted reference range: 10*3/?L. The reference range was not used to interpret this result as normal/abnormal. GRAN MAT (NEUT) % (test code = 770-8) 93.6 % IMM GRAN % (test code = 9747461255) 2.10 % LYMPH % (test code = 736-9) 2.8 % MONO % (test code = 5905-5) 1.4 % EOS % (test code = 713-8) 0.0 % BASO % (test code = 706-2) 0.1 % GRAN MAT x10^3(ANC) (test code = 2429059183) 17.50 10*3/uL 1.88-7.09 H IMM GRAN x10^3 (test code = 6514193929) 0.40 10*3/uL 0.00-0.06 H LYMPH x10^3 (test code = 731-0) 0.53 10*3/uL 1.32-3.29 L MONO x10^3 (test code = 742-7) 0.26 10*3/uL 0.33-0.92 L EOS x10^3 (test code = 711-2) <0.03 0.03-0.39 L BASO x10^3 (test code = 704-7) <0.03 0.01-0.07 TOXIC CHANGES (test code = 803-7) Present A Lab Interpretation (test code = 65345-3) Abnormal [facility] WITH [id number] 11:43:17* Test Item Value Reference Range Interpretation [...] 32.1 g/dL 31.6-35.1 RDW-SD (test code = 76688-3) 46.8 fL 39.0-49.9 RDW-CV (test code = 788-0) 14.6 % 12.0-15.5 PLT (test code = 777-3) See_Comment H [Automated message] The system which generated this result transmitted reference range: 166 - 358 10*3/?L. The reference range was not used to interpret this result as normal/abnormal. MPV (test code = 63377-3) 10.2 fL 9.5-12.9 NRBC/100 WBC (test code = 2247801001) See_Comment [Automated message] The system which generated this result transmitted reference range: 0.0 - 10.0 /100 WBCs. The reference range was not used to interpret this result as normal/abnormal. NRBC x10^3 (test code = 8960835280) <0.01 See_Comment [Automated message] The system which generated this result transmitted reference range: 10*3/?L. The reference range was not used to interpret this result as normal/abnormal. GRAN MAT (NEUT) % (test code = 770-8) 93.6 % IMM GRAN % (test code = 4104738593) 2.10 % LYMPH % (test code = 736-9) 2.8 % MONO % (test code = 5905-5) 1.4 % EOS % (test code = 713-8) 0.0 % BASO % (test code = 706-2) 0.1 % GRAN MAT x10^3(ANC) (test code = 9327013042) 17.50 10*3/uL 1.88-7.09 H IMM GRAN x10^3 (test code = 3157423491) 0.40 10*3/uL 0.00-0.06 H LYMPH x10^3 (test code = 731-0) 0.53 10*3/uL 1.32-3.29 L MONO x10^3 (test code = 742-7) 0.26 10*3/uL 0.33-0.92 L EOS x10^3 (test code = 711-2) <0.03 0.03-0.39 L BASO x10^3 (test code = 704-7) <0.03 0.01-0.07 TOXIC CHANGES (test code = 803-7) Present A Lab Interpretation (test code = 44738-0) Abnormal [facility] METABOLIC PANEL (NA, K, CL, CO2, GLUCOSE, BUN, CREATININE, CA)2021-10-22 11:20:32* Test Item Value Reference Range Interpretation Comme nts NA (test code = 7523425945) 136 mmol/L 135-145 K (test code = 7011912905) 4.3 mmol/L 3.5-5.0 CL (test code = 1925612639) 103 mmol/L 98-108 CO2 TOTAL (test code = 5662686451) 26 mmol/L 23-31 AGAP (test code = 9356151281) 2-16 BUN (test code = 5268674006) 18 mg/dL 7-23 GLUCOSE (test code = 1306372458) 185 mg/dL 70-110 H CREATININE (test code = 5450592172) 0.69 mg/dL 0.50-1.04 CALCIUM (test code = 0734183359) 7.9 mg/dL 8.6-10.6 L eGFR (test code = 1337582252) mL/min/1.73m2 LUCILLE (test code = LUCILLE) Association [...] imaging tests). Lab Interpretation (test code = 61039-7) [facility] 11:20:32* Test Item Value Reference Range Interpretation Comme nts MAGNESIUM (test code = 3065595323) 2.2 mg/dL 1.7-2.4 Lab Interpretation (test cod e = 47317-2) [facility] (NA, K, CL, CO2, GLUCOSE, BUN, CREATININE, CA)2021-10-22 11:20:32* Test Item Value Reference Range Interpretation Comme nts NA (test code = 6467463861) 136 mmol/L 135-145 K (test code = 8862696213) 4.3 mmol/L 3.5-5.0 CL (test code = 4676321850) 103 mmol/L 98-108 CO2 TOTAL (test code = 4387037898) 26 mmol/L 23-31 AGAP (test code = 9918993913) 2-16 BUN (test code = 6861234351) 18 mg/dL 7-23 GLUCOSE (test code = 8429485847) 185 mg/dL 70-110 H CREATININE (test code = 0408061553) 0.69 mg/dL 0.50-1.04 CALCIUM (test code = 3789554738) 7.9 mg/dL 8.6-10.6 L eGFR (test code = 8533844425) mL/min/1.73m2 LUCILLE (test code = LUCILLE) Association [...] imaging tests). Lab Interpretation (test code = 20341-4) [facility]normal [facility] 11:20:32* Test Item Value Reference Range Interpretation Comme nts MAGNESIUM (test code = 0635577009) 2.2 mg/dL 1.7-2.4 Lab Interpretation (test cod e = 25541-4) Normal [facility] [id number] 23:01:06* Test Item Value Reference Range Interpretation Comme nts Blood Culture-Aerobic (test code = 58438-6) No organisms isolated No growth Previous preliminary verified result was Culture In Progress on 10/16/2021 at 2002 CSTPrevious preliminary verified result was No growth at 24 hours on 10/17/2021 at 1701 CSTPrevious preliminary verified result was No growth at 48 hours on 10/18/2021 at 1701 CSTPrevious preliminary verified result was No growth at 72 hours on 10/19/2021 at 1702 [facility]PENTER [employer]M Blood Culture-Anaerobic (test code = 19767-5) No organisms isolated No growth Previous preliminary verified result was Culture In Progress on 10/16/2021 at 2001 CSTPrevious preliminary verified result was No growth at 24 hours on 10/17/2021 at 1701 CSTPrevious preliminary verified result was No growth at 48 hours on 10/18/2021 at 1701 CSTPrevious preliminary verified result was No growth at 72 hours on 10/19/2021 at 1702 [employer]PENTER [employer]M Lab Interpretation (test code = 76403-3) Normal [facility] CULTURE [id number] 23:01:06* Test Item Value Reference Range Interpretation Comme nts Blood Culture-Aerobic (test code = 56590-8) No organisms isolated No growth Previous preliminary verified result was Culture In Progress on 10/16/2021 at 2001 CSTPrevious preliminary verified result was No growth at 24 hours on 10/17/2021 at 1701 CSTPrevious preliminary verified result was No growth at 48 hours on 10/18/2021 at 1702 CSTPrevious preliminary verified result was No growth at 72 hours on 10/19/2021 at 1702 [employer]PENTER [employer]M Blood Culture-Anaerobic (test code = 08315-3) No organisms isolated No growth Previous preliminary verified result was Culture In Progress on 10/16/2021 at 2001 CSTPrevious preliminary verified result was No growth at 24 hours on 10/17/2021 at 1701 CSTPrevious preliminary verified result was No growth at 48 hours on 10/18/2021 at 1702 CSTPrevious preliminary verified result was No growth at 72 hours on 10/19/2021 at 1702 [employer]PENTER [employer]M Lab Interpretation (test code = 29074-4) Normal [facility] CULTURE [id number] 23:01:06* Test Item Value Reference Range Interpretation Comme nts Blood Culture-Aerobic (test code = 75322-1) No organisms isolated No growth Previous preliminary verified result was Culture In Progress on 10/16/2021 at 2001 CSTPrevious preliminary verified result was No growth at 24 hours on 10/17/2021 at 1701 CSTPrevious preliminary verified result was No growth at 48 hours on 10/18/2021 at 1701 CSTPrevious preliminary verified result was No growth at 72 hours on 10/19/2021 at 1702 [employer]PENTER [employer]M Blood Culture-Anaerobic (test code = 63995-9) No organisms isolated No growth Previous preliminary verified result was Culture In Progress on 10/16/2021 at 2001 CSTPrevious preliminary verified result was No growth at 24 hours on 10/17/2021 at 1701 CSTPrevious preliminary verified result was No growth at 48 hours on 10/18/2021 at 1701 CSTPrevious preliminary verified result was No growth at 72 hours on 10/19/2021 at 1702 [employer]ENTER [employer] Lab Interpretation (test code = 33172-5) Normal [facility] [id number] 23:01:06* Test Item Value Reference Range Interpretation Comme nts Blood Culture-Aerobic (test code = 28533-9) No organisms isolated No growth Previous preliminary verified result was Culture In Progress on 10/16/2021 at 2001 CSTPrevious preliminary verified result was No growth at 24 hours on 10/17/2021 at 1701 CSTPrevious preliminary verified result was No growth at 48 hours on 10/18/2021 at 1702 CSTPrevious preliminary verified result was No growth at 72 hours on 10/19/2021 at 1702 [employer]PENTER [employer]M Blood Culture-Anaerobic (test code = 26498-8) No organisms isolated No growth Previous preliminary verified result was Culture In Progress on 10/16/2021 at 2001 CSTPrevious preliminary verified result was No growth at 24 hours on 10/17/2021 at 1701 CSTPrevious preliminary verified result was No growth at 48 hours on 10/18/2021 at 1702 CSTPrevious preliminary verified result was No growth at 72 hours on 10/19/2021 at 1702 [employer]PENTER [employer]M Lab Interpretation (test code = 34172-4) Normal [facility] + LACTIC [id number] 20:42:21* Test Item Value Reference Range Interpretation Comme nts PH (test code = 2) 7.35-7.45 PCO2 (test code = 6725829500) See_Comment [Automated messa ge] The system which generated this result transmitted reference range: 35 - 45 mmHg. The reference range was not used to interpret this result as normal/abnormal. PO2 (test code = 0534902881) See_Comment H [Automated messa ge] The system which generated this result transmitted reference range: 80 - 100 mmHg. The reference range was not used to interpret this result as normal/abnormal. HCO3 (test code = 5983397896) See_Comment [Automated messa ge] The system which generated this result transmitted reference range: 22 - 26 mEq/L. The reference range was not used to interpret this result as normal/abnormal. BE (test code = 3388995263) See_Comment [Automated messa ge] The system which generated this result transmitted reference range: -3.0 - 3.0 mEq/L. The reference range was not used to interpret this result as normal/abnormal. THB (test code = 6350995978) 12.1 g/dL 12.0-16.0 %O2HB (test code = 1375153244) 99.5 % 94.0-99.0 H %COHB ART (test code = 8888189551) 0.1 % 0.0-1.5 %METHB ART (test code = 2562358372) 0.1 % 0.4-1.5 L VOL%O2 ART (test code = 9399605136) 17.8 % 15.0-23.0 NA (test code = 6797863237) 135 mmol/L 135-145 K+ (test code = 9916991667) 4.3 mmol/L 3.5-5.0 AC CA IONZ (test code = 7936786782) 4.50 mg/dL 4.50-5.30 GLUCOSE (test code = 9886741335) 108 mg/dL 70-110 LACTIC ACID (test code = 1561147950) 2.19 mmol/L 0.50-2.20 Lab Interpretation (test code = 86256-4) Abnormal [facility] + LACTIC [id number] 20:42:21* Test Item Value Reference Range Interpretation Comme nts PH (test code = 2) 7.35-7.45 PCO2 (test code = 6011803671) See_Comment [Automated messa ge] The system which generated this result transmitted reference range: 35 - 45 mmHg. The reference range was not used to interpret this result as normal/abnormal. PO2 (test code = 6320908538) See_Comment H [Automated messa ge] The system which generated this result transmitted reference range: 80 - 100 mmHg. The reference range was not used to interpret this result as normal/abnormal. HCO3 (test code = 5217771676) See_Comment [Automated messa ge] The system which generated this result transmitted reference range: 22 - 26 mEq/L. The reference range was not used to interpret this result as normal/abnormal. BE (test code = 1392138000) See_Comment [Automated messa ge] The system which generated this result transmitted reference range: -3.0 - 3.0 mEq/L. The reference range was not used to interpret this result as normal/abnormal. THB (test code = 9565036504) 12.1 g/dL 12.0-16.0 %O2HB (test code = 1941452668) 99.5 % 94.0-99.0 H %COHB ART (test code = 3069517952) 0.1 % 0.0-1.5 %METHB ART (test code = 6681673450) 0.1 % 0.4-1.5 L VOL%O2 ART (test code = 6496953898) 17.8 % 15.0-23.0 NA (test code = 9656914981) 135 mmol/L 135-145 K+ (test code = 4528294021) 4.3 mmol/L 3.5-5.0 AC CA IONZ (test code = 1704846042) 4.50 mg/dL 4.50-5.30 GLUCOSE (test code = 9494820565) 108 mg/dL 70-110 LACTIC ACID (test code = 0787183001) 2.19 mmol/L 0.50-2.20 Lab Interpretation (test code = 36765-9) Abnormal [facility] Lake[facility]IOTENSIN CONVERTING [id number] 20:19:53* Test Item Value Reference Range Interpretation Comme nts MELLY (test code = 2742-5) 28 U/L 9-67 Performed By: [facility] [place], [place] [address]Glbcvccqdz Director: Korin Barillas MD [facility] LakeANGIOTENSIN CONVERTING [id number] 20:19:53* Test Item Value Reference Range Interpretation Comme nts MELLY (test code = 2742-5) 28 U/L 9-67 Performed By: [facility] [place], [place] [address]Kyodmutdyi Director: Korin Barillas MD [facility] LakeBODY FLUID MANUAL [id number] 19:44:45* Test Item Value Reference Range Interpretation Comme nts BF SEGS% (test code = 69322-0) 2 % BF LYMPHS% (test code = 65770-4) 12 % BF MACROPHAGE% (test code = 80928-3) 86 % BF #CELLS CNTD (test code = 8274323730) cells/u L [facility] Lake[facility]ODY FLUID MANUAL [id number] 19:44:45* Test Item Value Reference Range Interpretation Comme nts BF SEGS% (test code = 79326-2) 2 % BF LYMPHS% (test code = 18872-1) 12 % BF MACROPHAGE% (test code = 60309-5) 86 % BF #CELLS CNTD (test code = 3310031930) cells/u L [facility] FLUID DIRECT [id number] 19:44:30* Test Item Value Reference Range Interpretation Comme nts BF COLOR (test code = 4598100573) Clear BF WBC Count (test code = 2249436981) See_Comment [Automated messa ge] The system which generated this result transmitted reference range: /?L. The reference range was not used to interpret this result as normal/abnormal. BF RBC Count (test code = 9234706158) <3000 See_Comment [Automated messa ge] The system which generated this result transmitted reference range: /?L. The reference range was not used to interpret this result as normal/abnormal. LUCILLE (test code = LUCILLE) The reference range and other method performance specifications have not been established for this body fluid. ?The test results must be integrated into the clinical context for interpretation. [facility] Lake[facility]ODY FLUID DIRECT [id number] 19:44:30* Test Item Value Reference Range Interpretation Comme nts BF COLOR (test code = 1907327490) Clear BF WBC Count (test code = 9833469821) See_Comment [Automated messa ge] The system which generated this result transmitted reference range: /?L. The reference range was not used to interpret this result as normal/abnormal. BF RBC Count (test code = 1006564626) <3000 See_Comment [Automated messa ge] The system which generated this result transmitted reference range: /?L. The reference range was not used to interpret this result as normal/abnormal. LUCILLE (test code = LUCILLE) The reference range and other method performance specifications have not been established for this body fluid. ?The test results must be integrated into the clinical context for interpretation. [facility] WITH [id number] 19:27:30* Test Item Value Reference Range Interpretation [...] g/dL 31.6-35.1 H RDW-SD (test code = 72048-1) 45.8 fL 39.0-49.9 RDW-CV (test code = 788-0) 14.4 % 12.0-15.5 PLT (test code = 777-3) See_Comment H [Automated message] The system which generated this result transmitted reference range: 166 - 358 10*3/?L. The reference range was not used to interpret this result as normal/abnormal. MPV (test code = 90902-3) 10.4 fL 9.5-12.9 NRBC/100 WBC (test code = 7462390209) See_Comment [Automated message] The system which generated this result transmitted reference range: 0.0 - 10.0 /100 WBCs. The reference range was not used to interpret this result as normal/abnormal. NRBC x10^3 (test code = 4956293304) See_Comment [Automated message] The system which generated this result transmitted reference range: 10*3/?L. The reference range was not used to interpret this result as normal/abnormal. SEG % (test code = 29348-7) 84 % 33-76 H BAND % (test code = 81128-7) 8 % 0-1 H MYELO % (test code = 36849-8) 2 % See_Comment H [Automated message] The system which generated this result transmitted reference range: <=0. The reference range was not used to interpret this result as normal/abnormal. LYMPH % (test code = 65257-9) 4 % 14-54 L MONO % (test code = 34537-8) 2 % 0-4 ANC (test code = 753-4) 21.16 10*3/uL 1.88-7.09 H Lab Interpretation (test code = 81837-7) Abnormal [facility] WITH [id number] 19:27:30* Test Item Value Reference Range Interpretation [...] g/dL 31.6-35.1 H RDW-SD (test code = 17937-7) 45.8 fL 39.0-49.9 RDW-CV (test code = 788-0) 14.4 % 12.0-15.5 PLT (test code = 777-3) See_Comment H [Automated message] The system which generated this result transmitted reference range: 166 - 358 10*3/?L. The reference range was not used to interpret this result as normal/abnormal. MPV (test code = 93515-0) 10.4 fL 9.5-12.9 NRBC/100 WBC (test code = 6304258351) See_Comment [Automated message] The system which generated this result transmitted reference range: 0.0 - 10.0 /100 WBCs. The reference range was not used to interpret this result as normal/abnormal. NRBC x10^3 (test code = 3816617595) See_Comment [Automated message] The system which generated this result transmitted reference range: 10*3/?L. The reference range was not used to interpret this result as normal/abnormal. SEG % (test code = 84397-0) 84 % 33-76 H BAND % (test code = 10129-5) 8 % 0-1 H MYELO % (test code = 48846-1) 2 % See_Comment H [Automated message] The system which generated this result transmitted reference range: <=0. The reference range was not used to interpret this result as normal/abnormal. LYMPH % (test code = 70813-3) 4 % 14-54 L MONO % (test code = 08065-8) 2 % 0-4 ANC (test code = 753-4) 21.16 10*3/uL 1.88-7.09 H Lab Interpretation (test code = 51864-3) Abnormal [facility] METABOLIC PANEL (NA, K, CL, CO2, GLUCOSE, BUN, CREATININE, CA)2021-10-21 19:20:26* Test Item Value Reference Range Interpretation Comme nts NA (test code = 5219561583) 125 mmol/L 135-145 L K (test code = 6053303547) 4.4 mmol/L 3.5-5.0 Slight hemolysis CL (test code = 6551977840) 98 mmol/L 98-108 CO2 TOTAL (test code = 7433928829) 19 mmol/L 23-31 L AGAP (test code = 7023292390) 2-16 BUN (test code = 5462880452) 21 mg/dL 7-23 Slight hemolysis GLUCOSE (test code = 6146169435) 155 mg/dL 70-110 H CREATININE (test code = 8692856589) 0.63 mg/dL 0.50-1.04 CALCIUM (test code = 0738775677) 6.9 mg/dL 8.6-10.6 L eGFR (test code = 0901018865) mL/min/1.73m2 LUCILLE (test code = LUCILLE) Association [...] imaging tests). Lab Interpretation (test code = 25037-1) [facility] (NA, K, CL, CO2, GLUCOSE, BUN, CREATININE, CA)2021-10-21 19:20:26* Test Item Value Reference Range Interpretation Comme nts NA (test code = 2499851510) 125 mmol/L 135-145 L K (test code = 6376325739) 4.4 mmol/L 3.5-5.0 Slight hemolysis CL (test code = 3662386559) 98 mmol/L 98-108 CO2 TOTAL (test code = 8619075896) 19 mmol/L 23-31 L AGAP (test code = 9051604899) 2-16 BUN (test code = 7577816562) 21 mg/dL 7-23 Slight hemolysis GLUCOSE (test code = 7756704908) 155 mg/dL 70-110 H CREATININE (test code = 1175008412) 0.63 mg/dL 0.50-1.04 CALCIUM (test code = 8261220047) 6.9 mg/dL 8.6-10.6 L eGFR (test code = 9201660217) mL/min/1.73m2 LUCILLE (test code = LUCILLE) Association [...] imaging tests). Lab Interpretation (test code = 31058-0) Abnormal [facility] Lake[facility]IBRINOGEN2022-02-18 19:12:03* Test Item Value Reference Range Interpretation Comme nts Fibrinogen (test code = 0338202393) 585 mg/dL 167-453 H Lab Interpretation (test cod e = 71489-4) Abnormal [facility] LakePROTHROMBIN TIME / [id number] 19:12:03* Test Item Value Reference Range Interpretation Comme nts PROTIME PATIENT (test code = 5964-2) See_Comment H [Automated Smart Eyea ge] The system which generated this result transmitted reference range: 10.1 - 12.6 Seconds. The reference range was not used to interpret this result as normal/abnormal. INR (test code = 6301-6) Normal INR <1.1; Warfarin Therapeutic range 2.0 to 3.0 or 2.5 to 3.5, depending upon the indications. Lab Interpretation (test code = 93849-2) Abnormal [facility] Lake[facility]IBRINOGEN2022-02-18 19:12:03* Test Item Value Reference Range Interpretation Comme nts Fibrinogen (test code = 8224953988) 585 mg/dL 167-453 H Lab Interpretation (test cod e = 43961-7) Abnormal [facility] LakePROTHROMBIN TIME / [id number] 19:12:03* Test Item Value Reference Range Interpretation Comme nts PROTIME PATIENT (test code = 5964-2) See_Comment H [Automated Smart Eyea CrowdBouncer] The system which generated this result transmitted reference range: 10.1 - 12.6 Seconds. The reference range was not used to interpret this result as normal/abnormal. INR (test code = 6301-6) Normal INR <1.1; Warfarin Therapeutic range 2.0 to 3.0 or 2.5 to 3.5, depending upon the indications. Lab Interpretation (test code = 75237-4) Abnormal [facility] LakeURIC [id number] 04:54:18* Test Item Value Reference Range Interpretation Comme nts URIC ACID (test code = 6106976118) 4.3 mg/dL 2.9-6.0 Lab Interpretation (test cod e = 98798-9) Normal [facility] Lake[facility] [id number] 04:54:18* Test Item Value Reference Range Interpretation Comme nts URIC ACID (test code = 4490851838) 4.3 mg/dL 2.9-6.0 Lab Interpretation (test cod e = 07512-0) Normal [facility] Lake[facility]ansthoracic echo (TTE)2021-10-20 20:54:06* Test Item Value Reference Range Interpretation Comme nts EF(Teich) (test code = 9649072968) 63.80 % LVIDD (test code = 7266576997) 4.40 cm LVIDS (test code = 8691155171) 2.90 cm IVS (test code = 9347537938) 0.86 cm LVPWD (test code = 9146155232) 0.86 cm LVOT diameter (test code = 4048893355) 2.00 cm FS (test code = 7423838339) 35 % LA size (test code = 0921121180) 3.4 cm LAV(MOD-sp4) (test code = 8472211830) 41.40 mL Ao root annulus (test code = 3360375315) 2.44 cm Ao root diam (test code = 2860642169) 2.44 cm Aortic root (test code = 9159612142) 2.44 cm PW (test code = 2806883030) 0.86 cm 0.6-1.1 EF - 2D (test code = 16060780) 63.80 % Interventricular Septum Diastolic Thickness by 2D (test code = 4798571) 0.86 cm Radiology Study observation (narrative) (test code = 09984-6) LUCILLE (test code = LUCILLE) ?Left?Ventricle: Left [...] 220lb ? ?114/63 81 [facility] Lake[facility]an[facility] (TTE)2021-10-20 20:54:06* Test Item Value Reference Range Interpretation Comme nts EF(Teich) (test code = 6290965344) 63.80 % LVIDD (test code = 5674457335) 4.40 cm LVIDS (test code = 6005931815) 2.90 cm IVS (test code = 3500500050) 0.86 cm LVPWD (test code = 5671334646) 0.86 cm LVOT diameter (test code = 4885118994) 2.00 cm FS (test code = 4261334088) 35 % LA size (test code = 8299396087) 3.4 cm LAV(MOD-sp4) (test code = 7786869029) 41.40 mL Ao root annulus (test code = 7930211254) 2.44 cm Ao root diam (test code = 2861059646) 2.44 cm Aortic root (test code = 5328733017) 2.44 cm PW (test code = 3312879085) 0.86 cm 0.6-1.1 EF - 2D (test code = 05027150) 63.80 % Interventricular Septum Diastolic Thickness by 2D (test code = 7430240) 0.86 cm Radiology Study observation (narrative) (test code = 30467-3) LUCILLE (test code = LUCILLE) ?Left?Ventricle: Left ventricle is normal in size and function. Normal wall thickness. Normal systolic function with a visually estimated EF of 55 - 60%. ?Aortic?Valve: Aortic valve is normal in structure and function. ?Mitral?Valve: Mitral valve is normal in structure and function. VitalsHeight Weight BSA (Calculated - sq m) BP Pulse 60 220lb ? ?114/63 81 [facility] WITH [id number] 11:09:20* Test Item Value Reference Range Interpretation [...] 31.9 g/dL 31.6-35.1 RDW-SD (test code = 36947-8) 46.3 fL 39.0-49.9 RDW-CV (test code = 788-0) 14.5 % 12.0-15.5 PLT (test code = 777-3) See_Comment [Automated message] The system which generated this result transmitted reference range: 166 - 358 10*3/?L. The reference range was not used to interpret this result as normal/abnormal. MPV (test code = 18630-7) 9.9 fL 9.5-12.9 NRBC/100 WBC (test code = 0675013192) See_Comment [Automated message] The system which generated this result transmitted reference range: 0.0 - 10.0 /100 WBCs. The reference range was not used to interpret this result as normal/abnormal. NRBC x10^3 (test code = 1960835177) <0.01 See_Comment [Automated message] The system which generated this result transmitted reference range: 10*3/?L. The reference range was not used to interpret this result as normal/abnormal. GRAN MAT (NEUT) % (test code = 770-8) 89.9 % IMM GRAN % (test code = 3321408716) 2.90 % LYMPH % (test code = 736-9) 4.2 % MONO % (test code = 5905-5) 2.9 % EOS % (test code = 713-8) 0.0 % BASO % (test code = 706-2) 0.1 % GRAN MAT x10^3(ANC) (test code = 4973055913) 14.51 10*3/uL 1.88-7.09 H IMM GRAN x10^3 (test code = 4563827662) 0.46 10*3/uL 0.00-0.06 H LYMPH x10^3 (test code = 731-0) 0.67 10*3/uL 1.32-3.29 L MONO x10^3 (test code = 742-7) 0.47 10*3/uL 0.33-0.92 EOS x10^3 (test code = 711-2) <0.03 0.03-0.39 L BASO x10^3 (test code = 704-7) <0.03 0.01-0.07 TOXIC CHANGES (test code = 803-7) Present A Lab Interpretation (test code = 93635-0) Abnormal [facility] WITH [id number] 11:09:20* Test Item Value Reference Range Interpretation [...] 31.9 g/dL 31.6-35.1 RDW-SD (test code = 22649-6) 46.3 fL 39.0-49.9 RDW-CV (test code = 788-0) 14.5 % 12.0-15.5 PLT (test code = 777-3) See_Comment [Automated message] The system which generated this result transmitted reference range: 166 - 358 10*3/?L. The reference range was not used to interpret this result as normal/abnormal. MPV (test code = 68342-7) 9.9 fL 9.5-12.9 NRBC/100 WBC (test code = 2095776298) See_Comment [Automated message] The system which generated this result transmitted reference range: 0.0 - 10.0 /100 WBCs. The reference range was not used to interpret this result as normal/abnormal. NRBC x10^3 (test code = 4773728970) <0.01 See_Comment [Automated message] The system which generated this result transmitted reference range: 10*3/?L. The reference range was not used to interpret this result as normal/abnormal. GRAN MAT (NEUT) % (test code = 770-8) 89.9 % IMM GRAN % (test code = 8135674099) 2.90 % LYMPH % (test code = 736-9) 4.2 % MONO % (test code = 5905-5) 2.9 % EOS % (test code = 713-8) 0.0 % BASO % (test code = 706-2) 0.1 % GRAN MAT x10^3(ANC) (test code = 7234419881) 14.51 10*3/uL 1.88-7.09 H IMM GRAN x10^3 (test code = 1064105431) 0.46 10*3/uL 0.00-0.06 H LYMPH x10^3 (test code = 731-0) 0.67 10*3/uL 1.32-3.29 L MONO x10^3 (test code = 742-7) 0.47 10*3/uL 0.33-0.92 EOS x10^3 (test code = 711-2) <0.03 0.03-0.39 L BASO x10^3 (test code = 704-7) <0.03 0.01-0.07 TOXIC CHANGES (test code = 803-7) Present A Lab Interpretation (test code = 21322-4) Abnormal [facility] METABOLIC PANEL (NA, K, CL, CO2, GLUCOSE, BUN, CREATININE, CA)2021-10-20 10:55:22* Test Item Value Reference Range Interpretation Comme nts NA (test code = 1535319777) 136 mmol/L 135-145 K (test code = 5015150330) 4.1 mmol/L 3.5-5.0 CL (test code = 9600029383) 108 mmol/L 98-108 CO2 TOTAL (test code = 1937403095) 25 mmol/L 23-31 AGAP (test code = 9236514189) 2-16 BUN (test code = 0996297188) 23 mg/dL 7-23 GLUCOSE (test code = 2750366570) 134 mg/dL 70-110 H CREATININE (test code = 0544246481) 0.67 mg/dL 0.50-1.04 CALCIUM (test code = 9745491810) 7.5 mg/dL 8.6-10.6 L eGFR (test code = 9702285981) mL/min/1.73m2 LUCILLE (test code = LCUILLE) Association of [...] imaging tests). Lab Interpretation (test code = 98277-7) Abnormal [facility] METABOLIC PANEL (NA, K, CL, CO2, GLUCOSE, BUN, CREATININE, CA)2021-10-20 10:55:22* Test Item Value Reference Range Interpretation Comme nts NA (test code = 0145065151) 136 mmol/L 135-145 K (test code = 7843152734) 4.1 mmol/L 3.5-5.0 CL (test code = 2538172070) 108 mmol/L 98-108 CO2 TOTAL (test code = 2959203842) 25 mmol/L 23-31 AGAP (test code = 7522666692) 2-16 BUN (test code = 5125088808) 23 mg/dL 7-23 GLUCOSE (test code = 7568971731) 134 mg/dL 70-110 H CREATININE (test code = 2971402295) 0.67 mg/dL 0.50-1.04 CALCIUM (test code = 3829095960) 7.5 mg/dL 8.6-10.6 L eGFR (test code = 3942811449) mL/min/1.73m2 LUCILLE (test code = LUCILLE) Association [...] imaging tests). Lab Interpretation (test code = 59509-9) [facility]normal [facility] [id number] 21:49:45* Test Item Value Reference Range Interpretation Comme nts ANTI-DSDNA (test code = 4142053354) See_Comment [Automated message] The system which generated this result transmitted reference range: 0.0 - 4.0 IU/mL. The reference range was not used to interpret this result as normal/abnormal. LUCILLE (test code = LUCILLE) Negative ? ?< or = 4 IU/mLPositive ? ? ?> or = 10 IU/mLIndetermin ate ?5-9 IU/mL Lab Interpretation (test code = 81500-2) Normal [facility] [id number] 21:49:45* Test Item Value Reference Range Interpretation Comme nts ANTI-DSDNA (test code = 9935369920) See_Comment [Automated message] The system which generated this result transmitted reference range: 0.0 - 4.0 IU/mL. The reference range was not used to interpret this result as normal/abnormal. LUCILLE (test code = LUCILLE) Negative ? ?< or = 4 IU/mLPositive ? ? ?> or = 10 IU/mLIndetermin ate ?5-9 IU/mL Lab Interpretation (test code = 96492-8) [id number] 21:43:06* Test Item Value Reference Range Interpretation Comme nts RF (test code = 7106121747) <20 See_Comment [Automated Smart Eye[employer] ge] The system which generated this result transmitted reference range: <20 IU/mL. The reference range was not used to interpret this result as normal/abnormal. Lab Interpretation (test code = 76059-3) [facility] [id number] 21:43:06* Test Item Value Reference Range Interpretation Comme nts RF (test code = 8962156779) <20 See_Comment [Automated [employer] ge] The system which generated this result transmitted reference range: <20 IU/mL. The reference range was not used to interpret this result as normal/abnormal. Lab Interpretation (test code = 20855-3) Normal [facility] [id number] 20:22:55 * Test Item Value Reference Range Interpretation Comme nts SHIRA Titer by IFA (test code = 3906336599) <=1:80 SHIRA Pattern (test code = 5692310576) SHIRA screen was positive at the 1:80 [...] held for 7 days. [facility] [id number] 20:22:55 * Test Item Value Reference Range Interpretation Comme nts SHIRA Titer by IFA (test code = 0374714349) <=1:80 SHIRA Pattern (test code = 4185332159) SHIRA screen was positive at the 1:80 [...] held for 7 days. [facility] [id number] 18:12:04* Test Item Value Reference Range Interpretation Comme nts Myeloperoxidase (MPO) Antibodies, IgG Interpretation (test code = 14411-2) Negative Negative Proteinase 3 (PR3) Antibodies, IgG Interpretation (test code = 72331-2) Negative Negative Myeloperoxidase (MPO) Antibodies, IgG (test code = 8242845967) <0.3 See_Comment [Automated message] The system which generated this result transmitted reference range: <=3.5 U/mL. The reference range was not used to interpret this result as normal/abnormal. Proteinase 3 (PR3) Antibodies, IgG (test code = 2493575639) <0.7 See_Comment [Automated message] The system which [...] 12 weeks. Lab Interpretation (test code = 95344-8) Normal [facility] [id number] 18:12:04* Test Item Value Reference Range Interpretation Comme nts Myeloperoxidase (MPO) Antibodies, IgG Interpretation (test code = 68612-1) Negative Negative Proteinase 3 (PR3) Antibodies, IgG Interpretation (test code = 99563-7) Negative Negative Myeloperoxidase (MPO) Antibodies, IgG (test code = 3922506556) <0.3 See_Comment [Automated message] The system which generated this result transmitted reference range: <=3.5 U/mL. The reference range was not used to interpret this result as normal/abnormal. Proteinase 3 (PR3) Antibodies, IgG (test code = 6735821975) <0.7 See_Comment [Automated message] The system which [...] 12 weeks. Lab Interpretation (test code = 89245-7) Normal [facility]2022-02-16 10:47:40* Test Item Value Reference Range Interpretation Comme nts MAGNESIUM (test code = 1588907419) 2.9 mg/dL 1.7-2.4 H Lab Interpretation (test cod e = 43389-4) Abnormal [facility]2022-02-16 10:47:40* Test Item Value Reference Range Interpretation Comme nts MAGNESIUM (test code = 7482259437) 2.9 mg/dL 1.7-2.4 H Lab Interpretation (test cod e = 21829-5) Abnormal [facility] WITH [id number] 09:31:49* Test Item Value Reference Range Interpretation [...] 32.8 g/dL 31.6-35.1 RDW-SD (test code = 70770-4) 45.5 fL 39.0-49.9 RDW-CV (test code = 788-0) 14.4 % 12.0-15.5 PLT (test code = 777-3) See_Comment [Automated message] The system which generated this result transmitted reference range: 166 - 358 10*3/?L. The reference range was not used to interpret this result as normal/abnormal. MPV (test code = 83124-8) 10.0 fL 9.5-12.9 NRBC/100 WBC (test code = 4552252618) See_Comment [Automated message] The system which generated this result transmitted reference range: 0.0 - 10.0 /100 WBCs. The reference range was not used to interpret this result as normal/abnormal. NRBC x10^3 (test code = 0521099084) <0.01 See_Comment [Automated message] The system which generated this result transmitted reference range: 10*3/?L. The reference range was not used to interpret this result as normal/abnormal. GRAN MAT (NEUT) % (test code = 770-8) 93.4 % IMM GRAN % (test code = 9233173441) 1.50 % LYMPH % (test code = 736-9) 2.4 % MONO % (test code = 5905-5) 2.6 % EOS % (test code = 713-8) 0.0 % BASO % (test code = 706-2) 0.1 % GRAN MAT x10^3(ANC) (test code = 7127549796) 17.74 10*3/uL 1.88-7.09 H IMM GRAN x10^3 (test code = 6285252703) 0.28 10*3/uL 0.00-0.06 H LYMPH x10^3 (test code = 731-0) 0.46 10*3/uL 1.32-3.29 L MONO x10^3 (test code = 742-7) 0.50 10*3/uL 0.33-0.92 EOS x10^3 (test code = 711-2) <0.03 0.03-0.39 L BASO x10^3 (test code = 704-7) <0.03 0.01-0.07 TOXIC CHANGES (test code = 803-7) Present A Lab Interpretation (test code = 98352-6) Abnormal [facility] WITH [id number] 09:31:49* Test Item Value Reference Range Interpretation [...] 32.8 g/dL 31.6-35.1 RDW-SD (test code = 44106-8) 45.5 fL 39.0-49.9 RDW-CV (test code = 788-0) 14.4 % 12.0-15.5 PLT (test code = 777-3) See_Comment [Automated message] The system which generated this result transmitted reference range: 166 - 358 10*3/?L. The reference range was not used to interpret this result as normal/abnormal. MPV (test code = 61093-8) 10.0 fL 9.5-12.9 NRBC/100 WBC (test code = 8797967129) See_Comment [Automated message] The system which generated this result transmitted reference range: 0.0 - 10.0 /100 WBCs. The reference range was not used to interpret this result as normal/abnormal. NRBC x10^3 (test code = 6677097741) <0.01 See_Comment [Automated message] The system which generated this result transmitted reference range: 10*3/?L. The reference range was not used to interpret this result as normal/abnormal. GRAN MAT (NEUT) % (test code = 770-8) 93.4 % IMM GRAN % (test code = 2894538800) 1.50 % LYMPH % (test code = 736-9) 2.4 % MONO % (test code = 5905-5) 2.6 % EOS % (test code = 713-8) 0.0 % BASO % (test code = 706-2) 0.1 % GRAN MAT x10^3(ANC) (test code = 2236936304) 17.74 10*3/uL 1.88-7.09 H IMM GRAN x10^3 (test code = 9928286111) 0.28 10*3/uL 0.00-0.06 H LYMPH x10^3 (test code = 731-0) 0.46 10*3/uL 1.32-3.29 L MONO x10^3 (test code = 742-7) 0.50 10*3/uL 0.33-0.92 EOS x10^3 (test code = 711-2) <0.03 0.03-0.39 L BASO x10^3 (test code = 704-7) <0.03 0.01-0.07 TOXIC CHANGES (test code = 803-7) Present A Lab Interpretation (test code = 49842-4) Abnormal [facility] METABOLIC PANEL (NA, K, CL, CO2, GLUCOSE, BUN, CREATININE, CA)2021-10-19 09:25:48* Test Item Value Reference Range Interpretation Comme nts NA (test code = 3301193705) 144 mmol/L 135-145 K (test code = 5363093025) 4.5 mmol/L 3.5-5.0 CL (test code = 8463719878) 111 mmol/L 98-108 H CO2 TOTAL (test code = 7534540364) 27 mmol/L 23-31 AGAP (test code = 1866810392) 2-16 BUN (test code = 8821525669) 30 mg/dL 7-23 H GLUCOSE (test code = 3711406737) 159 mg/dL 70-110 H CREATININE (test code = 7466531606) 0.81 mg/dL 0.50-1.04 CALCIUM (test code = 8453151399) 8.2 mg/dL 8.6-10.6 L eGFR (test code = 1981723298) mL/min/1.73m2 LUCILLE (test code = LUCILLE) Association [...] imaging tests). Lab Interpretation (test code = 48541-5) Abnormal [facility] METABOLIC PANEL (NA, K, CL, CO2, GLUCOSE, BUN, CREATININE, CA)2021-10-19 09:25:48* Test Item Value Reference Range Interpretation Comme nts NA (test code = 2159494771) 144 mmol/L 135-145 K (test code = 5324591019) 4.5 mmol/L 3.5-5.0 CL (test code = 3532675700) 111 mmol/L 98-108 H CO2 TOTAL (test code = 7168626768) 27 mmol/L 23-31 AGAP (test code = 2619443866) 2-16 BUN (test code = 4780399986) 30 mg/dL 7-23 H GLUCOSE (test code = 4250139528) 159 mg/dL 70-110 H CREATININE (test code = 4915503334) 0.81 mg/dL 0.50-1.04 CALCIUM (test code = 2591357277) 8.2 mg/dL 8.6-10.6 L eGFR (test code = 4000349996) mL/min/1.73m2 LUCILLE (test code = LUCILLE) Association [...] imaging tests). Lab Interpretation (test code = 14929-1) Abnormal [facility] GLUCOSE (AUTOMATED)2021-10-19 02:29:39* Test Item Value Reference Range Interpretation Comme [facility] POCT GLU (test code = 1149977471) 159 mg/dL 70-110 H Lab Interpretation (test cod e = 43396-8) Abnormal [facility] GLUCOSE (AUTOMATED)2021-10-19 02:29:39* Test Item Value Reference Range Interpretation Comme [facility] POCT GLU (test code = 6300238238) 159 mg/dL 70-110 H Lab Interpretation (test cod e = 66969-8) [facility]normal [facility] [id number] 22:06:05* Test Item Value Reference Range Interpretation Comme [facility] SHIRA (test code = 6872294363) Positive Negative A LUCILLE (test code = LUCILLE) Negative - No Anti-Nuclear Antibodies detected by IFA.Positive - SHIRA IFA screen performed with a 1:80 dilution in adults and a 1:40 dilution in pediatrics. Any SHIRA "Positive" will have titer performed and reported separately. Lab Interpretation (test code = 12879-1) Abnormal [facility] [id number] 22:06:05* Test Item Value Reference Range Interpretation Comme nts SHIRA (test code = 6368410457) Positive Negative A LUCILLE (test code = LUCILLE) Negative - No Anti-Nuclear Antibodies detected by IFA.Positive - SHIRA IFA screen performed with a 1:80 dilution in adults and a 1:40 dilution in pediatrics. Any SHIRA "Positive" will have titer performed and reported separately. Lab Interpretation (test code = 86973-8) Abnormal [facility]OSYL[facility] HEM[facility]GLOBIN (A1C)2021-10-18 17:16:16* Test Item Value Reference Range Interpretation Comme nts HGB A1C (test code = 4548-4) 6.0 % 4.0-5.7 H LUCILLE (test code = LUCILLE) Reference RangesNormal: <5.7%Prediabetes: 5.7 - 6.4%Diabetes: > 6.5% Lab Interpretation (test code = 91225-4) Abnormal [facility] (A1C)2021-10-18 17:16:16* Test Item Value Reference Range Interpretation Comme nts HGB A1C (test code = 4548-4) 6.0 % 4.0-5.7 H LUCILLE (test code = LUCILLE) Reference RangesNormal: <5.7%Prediabetes: 5.7 - 6.4%Diabetes: > 6.5% Lab Interpretation (test code = 17886-8) Abnormal [facility] WITH [id number] 10:21:29* Test Item Value Reference Range Interpretation [...] 33.4 g/dL 31.6-35.1 RDW-SD (test code = 24205-0) 44.0 fL 39.0-49.9 RDW-CV (test code = 788-0) 14.1 % 12.0-15.5 PLT (test code = 777-3) See_Comment [Automated message] The system which generated this result transmitted reference range: 166 - 358 10*3/?L. The reference range was not used to interpret this result as normal/abnormal. MPV (test code = 35256-1) 10.5 fL 9.5-12.9 NRBC/100 WBC (test code = 5667034838) See_Comment [Automated message] The system which generated this result transmitted reference range: 0.0 - 10.0 /100 WBCs. The reference range was not used to interpret this result as normal/abnormal. NRBC x10^3 (test code = 8567494958) <0.01 See_Comment [Automated message] The system which generated this result transmitted reference range: 10*3/?L. The reference range was not used to interpret this result as normal/abnormal. GRAN MAT (NEUT) % (test code = 770-8) 94.3 % IMM GRAN % (test code = 0421607600) 1.00 % LYMPH % (test code = 736-9) 2.1 % MONO % (test code = 5905-5) 2.5 % EOS % (test code = 713-8) 0.0 % BASO % (test code = 706-2) 0.1 % GRAN MAT x10^3(ANC) (test code = 6910083365) 18.69 10*3/uL 1.88-7.09 H IMM GRAN x10^3 (test code = 4577368804) 0.20 10*3/uL 0.00-0.06 H LYMPH x10^3 (test code = 731-0) 0.42 10*3/uL 1.32-3.29 L MONO x10^3 (test code = 742-7) 0.50 10*3/uL 0.33-0.92 EOS x10^3 (test code = 711-2) <0.03 0.03-0.39 L BASO x10^3 (test code = 704-7) <0.03 0.01-0.07 TOXIC CHANGES (test code = 803-7) Present A Lab Interpretation (test code = 24927-0) Abnormal [facility] WITH [id number] 10:21:29* Test Item Value Reference Range Interpretation [...] 33.4 g/dL 31.6-35.1 RDW-SD (test code = 59092-2) 44.0 fL 39.0-49.9 RDW-CV (test code = 788-0) 14.1 % 12.0-15.5 PLT (test code = 777-3) See_Comment [Automated message] The system which generated this result transmitted reference range: 166 - 358 10*3/?L. The reference range was not used to interpret this result as normal/abnormal. MPV (test code = 58631-7) 10.5 fL 9.5-12.9 NRBC/100 WBC (test code = 6223106368) See_Comment [Automated message] The system which generated this result transmitted reference range: 0.0 - 10.0 /100 WBCs. The reference range was not used to interpret this result as normal/abnormal. NRBC x10^3 (test code = 6610329787) <0.01 See_Comment [Automated message] The system which generated this result transmitted reference range: 10*3/?L. The reference range was not used to interpret this result as normal/abnormal. GRAN MAT (NEUT) % (test code = 770-8) 94.3 % IMM GRAN % (test code = 5697321587) 1.00 % LYMPH % (test code = 736-9) 2.1 % MONO % (test code = 5905-5) 2.5 % EOS % (test code = 713-8) 0.0 % BASO % (test code = 706-2) 0.1 % GRAN MAT x10^3(ANC) (test code = 2919333364) 18.69 10*3/uL 1.88-7.09 H IMM GRAN x10^3 (test code = 7307465139) 0.20 10*3/uL 0.00-0.06 H LYMPH x10^3 (test code = 731-0) 0.42 10*3/uL 1.32-3.29 L MONO x10^3 (test code = 742-7) 0.50 10*3/uL 0.33-0.92 EOS x10^3 (test code = 711-2) <0.03 0.03-0.39 L BASO x10^3 (test code = 704-7) <0.03 0.01-0.07 TOXIC CHANGES (test code = 803-7) Present A Lab Interpretation (test code = 65011-5) Abnormal [facility] METABOLIC PANEL (NA, K, CL, CO2, GLUCOSE, BUN, CREATININE, CA)2021-10-18 09:49:57* Test Item Value Reference Range Interpretation Comme nts NA (test code = 3406662286) 141 mmol/L 135-145 K (test code = 8230153635) 4.9 mmol/L 3.5-5.0 CL (test code = 5730628960) 107 mmol/L 98-108 CO2 TOTAL (test code = 3665777249) 26 mmol/L 23-31 AGAP (test code = 0093785741) 2-16 BUN (test code = 2889786535) 30 mg/dL 7-23 H GLUCOSE (test code = 0205455297) 166 mg/dL 70-110 H CREATININE (test code = 3141931726) 0.76 mg/dL 0.50-1.04 CALCIUM (test code = 4702678043) 8.2 mg/dL 8.6-10.6 L eGFR (test code = 5620672488) mL/min/1.73m2 LUCILLE (test code = LUCILLE) Association [...] imaging tests). Lab Interpretation (test code = 09648-0) [facility]normal [facility] 09:49:57* Test Item Value Reference Range Interpretation Comme nts MAGNESIUM (test code = 2124991278) 3.0 mg/dL 1.7-2.4 H Lab Interpretation (test cod e = 09984-6) [facility]normal [facility] 09:49:57* Test Item Value Reference Range Interpretation Comme nts PHOSPHORUS (test code = 1245881629) 4.0 mg/dL 2.5-5.0 Lab Interpretation (test cod e = 97800-6) Normal [facility] (NA, K, CL, CO2, GLUCOSE, BUN, CREATININE, CA)2021-10-18 09:49:57* Test Item Value Reference Range Interpretation Comme nts NA (test code = 8852570621) 141 mmol/L 135-145 K (test code = 8837101130) 4.9 mmol/L 3.5-5.0 CL (test code = 5038797158) 107 mmol/L 98-108 CO2 TOTAL (test code = 9937626889) 26 mmol/L 23-31 AGAP (test code = 6131114401) 2-16 BUN (test code = 8719035014) 30 mg/dL 7-23 H GLUCOSE (test code = 2674324476) 166 mg/dL 70-110 H CREATININE (test code = 4616043048) 0.76 mg/dL 0.50-1.04 CALCIUM (test code = 7912477765) 8.2 mg/dL 8.6-10.6 L eGFR (test code = 0569542826) mL/min/1.73m2 LUCILLE (test code = LUCILLE) Association [...] imaging tests). Lab Interpretation (test code = 19488-2) [facility]normal [facility]20[facility]15 09:49:57* Test Item Value Reference Range Interpretation Comme nts MAGNESIUM (test code = 5125385988) 3.0 mg/dL 1.7-2.4 H Lab Interpretation (test cod e = 10481-0) [facility]normal [facility]2022[facility]15 09:49:57* Test Item Value Reference Range Interpretation Comme nts PHOSPHORUS (test code = 1672435068) 4.0 mg/dL 2.5-5.0 Lab Interpretation (test cod e = 19940-7) Normal [facility] Lake[facility] AG-AB WITH [id number] 02:31:06* Test Item Value Reference Range Interpretation Comme nts HIV Semi-quantitative (test code = 77084-0) Negative Negative LUCILLE (test code = LUCILLE) Non-reactive for HIV-1 antigen and HIV-1/HIV-2 antibodies. ?No laboratory evidence of HIV infection. ?Repeat in 2-4 weeks if acute HIV infection is suspected. [facility] AG-AB WITH [id number] 02:31:06* Test Item Value Reference Range Interpretation Comme [facility] HIV Semi-quantitative (test code = 15987-1) Negative Negative LUCILLE (test code = LUCILLE) Non-reactive for HIV-1 antigen and HIV-1/HIV-2 antibodies. ?No laboratory evidence of HIV infection. ?Repeat in 2-4 weeks if acute HIV infection is suspected. [facility] (NA, K, CL, CO2, GLUCOSE, BUN, CREATININE, CA)2021-10-18 01:11:26* Test Item Value Reference Range Interpretation Comme nts NA (test code = 3892778302) 141 mmol/L 135-145 K (test code = 1366037706) 4.6 mmol/L 3.5-5.0 CL (test code = 3465158134) 106 mmol/L 98-108 CO2 TOTAL (test code = 1744976783) 26 mmol/L 23-31 AGAP (test code = 9748081691) 2-16 BUN (test code = 3064686945) 28 mg/dL 7-23 H GLUCOSE (test code = 8437337609) 180 mg/dL 70-110 H CREATININE (test code = 2111905728) 0.82 mg/dL 0.50-1.04 CALCIUM (test code = 7557511526) 8.3 mg/dL 8.6-10.6 L eGFR (test code = 5413195452) mL/min/1.73m2 LUCILLE (test code = LUCILLE) Association [...] imaging tests). Lab Interpretation (test code = 50319-9) Abnormal [facility] METABOLIC PANEL (NA, K, CL, CO2, GLUCOSE, BUN, CREATININE, CA)2021-10-18 01:11:26* Test Item Value Reference Range Interpretation Comme nts NA (test code = 2922995441) 141 mmol/L 135-145 K (test code = 9139113379) 4.6 mmol/L 3.5-5.0 CL (test code = 3647973111) 106 mmol/L 98-108 CO2 TOTAL (test code = 1309209445) 26 mmol/L 23-31 AGAP (test code = 1435185139) 2-16 BUN (test code = 5181101033) 28 mg/dL 7-23 H GLUCOSE (test code = 9919933783) 180 mg/dL 70-110 H CREATININE (test code = 6989348453) 0.82 mg/dL 0.50-1.04 CALCIUM (test code = 7691535311) 8.3 mg/dL 8.6-10.6 L eGFR (test code = 2961226796) mL/min/1.73m2 LUCILLE (test code = LUCILLE) Association [...] imaging tests). Lab Interpretation (test code = 43120-9) [id number] 22:06:03* Test Item Value Reference Range Interpretation Comme nts NT-proBNP (test code = 7362616844) 250 pg/mL See_Comment H [Automated message] The system which generated this result transmitted reference range: <=125. The reference range was not used to interpret this result as normal/abnormal. LUCILLE (test code = LUCILLE) Biotin has been reported to cause a negative bias, interpret results relative to patient's use of biotin. Lab Interpretation (test code = 21001-1) [facility] [id number] 22:06:03* Test Item Value Reference Range Interpretation Comme [facility] NT-proBNP (test code = 3057886125) 250 pg/mL See_Comment H [Automated message] The system which generated this result transmitted reference range: <=125. The reference range was not used to interpret this result as normal/abnormal. LUCILLE (test code = LUCILLE) Biotin has been reported to cause a negative bias, interpret results relative to patient's use of biotin. Lab Interpretation (test code = 30040-4) [facility]+K+GLU+CA2+2021-10-17 21:42:22* Test Item Value Reference Range Interpretation Comme nts PH (test code = 2) 7.35-7.45 PCO2 (test code = 9604634397) See_Comment [Automated [employer]] The system which generated this result transmitted reference range: 35 - 45 mmHg. The reference range was not used to interpret this result as normal/abnormal. PO2 (test code = 9693736916) See_Comment H [Automated [employer]cer] The system which generated this result transmitted reference range: 80 - 100 mmHg. The reference range was not used to interpret this result as normal/abnormal. HCO3 (test code = 3906389120) See_Comment [Automated messa ge] The system which generated this result transmitted reference range: 22 - 26 mEq/L. The reference range was not used to interpret this result as normal/abnormal. BE (test code = 2977268086) See_Comment [Automated messa ge] The system which generated this result transmitted reference range: -3.0 - 3.0 mEq/L. The reference range was not used to interpret this result as normal/abnormal. THB (test code = 8520333137) 13.0 g/dL 12.0-16.0 %O2HB (test code = 2329832465) 98.9 % 94.0-99.0 %COHB ART (test code = 7841898367) 0.3 % 0.0-1.5 %METHB ART (test code = 7244245805) 0.0 % 0.4-1.5 L VOL%O2 ART (test code = 8189811124) 18.5 % 15.0-23.0 NA (test code = 9047378988) 139 mmol/L 135-145 K+ (test code = 3349887092) 4.6 mmol/L 3.5-5.0 AC CA IONZ (test code = 9285125539) 4.50 mg/dL 4.50-5.30 GLUCOSE (test code = 6434651465) 166 mg/dL 70-110 H Lab Interpretation (test code = 15741-6) [facility]NA+K+GLU+CA2+2021-10-17 21:42:22* Test Item Value Reference Range Interpretation Comme nts PH (test code = 2) 7.35-7.45 PCO2 (test code = 3239457167) See_Comment [Automated messa ge] The system which generated this result transmitted reference range: 35 - 45 mmHg. The reference range was not used to interpret this result as normal/abnormal. PO2 (test code = 5303698167) See_Comment H [Automated messa ge] The system which generated this result transmitted reference range: 80 - 100 mmHg. The reference range was not used to interpret this result as normal/abnormal. HCO3 (test code = 9230491343) See_Comment [Automated messa ge] The system which generated this result transmitted reference range: 22 - 26 mEq/L. The reference range was not used to interpret this result as normal/abnormal. BE (test code = 9136110895) See_Comment [Automated messa ge] The system which generated this result transmitted reference range: -3.0 - 3.0 mEq/L. The reference range was not used to interpret this result as normal/abnormal. THB (test code = 5936597414) 13.0 g/dL 12.0-16.0 %O2HB (test code = 9758437081) 98.9 % 94.0-99.0 %COHB ART (test code = 6222506284) 0.3 % 0.0-1.5 %METHB ART (test code = 9017564659) 0.0 % 0.4-1.5 L VOL%O2 ART (test code = 3893580969) 18.5 % 15.0-23.0 NA (test code = 6826473245) 139 mmol/L 135-145 K+ (test code = 0964554343) 4.6 mmol/L 3.5-5.0 AC CA IONZ (test code = 8548083205) 4.50 mg/dL 4.50-5.30 GLUCOSE (test code = 2088070917) 166 mg/dL 70-110 H Lab Interpretation (test code = 50802-6) Abnormal [facility] WITH [id number] 11:01:03* Test Item Value Reference Range Interpretation [...] 33.2 g/dL 31.6-35.1 RDW-SD (test code = 20430-5) 44.5 fL 39.0-49.9 RDW-CV (test code = 788-0) 14.1 % 12.0-15.5 PLT (test code = 777-3) See_Comment [Automated message] The system which generated this result transmitted reference range: 166 - 358 10*3/?L. The reference range was not used to interpret this result as normal/abnormal. MPV (test code = 71872-2) 11.0 fL 9.5-12.9 NRBC/100 WBC (test code = 2479816470) See_Comment [Automated message] The system which generated this result transmitted reference range: 0.0 - 10.0 /100 WBCs. The reference range was not used to interpret this result as normal/abnormal. NRBC x10^3 (test code = 1298249189) <0.01 See_Comment [Automated message] The system which generated this result transmitted reference range: 10*3/?L. The reference range was not used to interpret this result as normal/abnormal. GRAN MAT (NEUT) % (test code = 770-8) 91.6 % IMM GRAN % (test code = 3539172863) 1.40 % LYMPH % (test code = 736-9) 5.5 % MONO % (test code = 5905-5) 1.4 % EOS % (test code = 713-8) 0.0 % BASO % (test code = 706-2) 0.1 % GRAN MAT x10^3(ANC) (test code = 2707799786) 17.75 10*3/uL 1.88-7.09 H IMM GRAN x10^3 (test code = 0732017192) 0.27 10*3/uL 0.00-0.06 H LYMPH x10^3 (test code = 731-0) 1.06 10*3/uL 1.32-3.29 L MONO x10^3 (test code = 742-7) 0.28 10*3/uL 0.33-0.92 L EOS x10^3 (test code = 711-2) <0.03 0.03-0.39 L BASO x10^3 (test code = 704-7) <0.03 0.01-0.07 TOXIC CHANGES (test code = 803-7) Present A Lab Interpretation (test code = 95578-4) Abnormal [facility] WITH [id number] 11:01:03* Test Item Value Reference Range Interpretation [...] 33.2 g/dL 31.6-35.1 RDW-SD (test code = 02371-3) 44.5 fL 39.0-49.9 RDW-CV (test code = 788-0) 14.1 % 12.0-15.5 PLT (test code = 777-3) See_Comment [Automated message] The system which generated this result transmitted reference range: 166 - 358 10*3/?L. The reference range was not used to interpret this result as normal/abnormal. MPV (test code = 82744-2) 11.0 fL 9.5-12.9 NRBC/100 WBC (test code = 1704403355) See_Comment [Automated message] The system which generated this result transmitted reference range: 0.0 - 10.0 /100 WBCs. The reference range was not used to interpret this result as normal/abnormal. NRBC x10^3 (test code = 2438638651) <0.01 See_Comment [Automated message] The system which generated this result transmitted reference range: 10*3/?L. The reference range was not used to interpret this result as normal/abnormal. GRAN MAT (NEUT) % (test code = 770-8) 91.6 % IMM GRAN % (test code = 9588079189) 1.40 % LYMPH % (test code = 736-9) 5.5 % MONO % (test code = 5905-5) 1.4 % EOS % (test code = 713-8) 0.0 % BASO % (test code = 706-2) 0.1 % GRAN MAT x10^3(ANC) (test code = 9607779700) 17.75 10*3/uL 1.88-7.09 H IMM GRAN x10^3 (test code = 7611881645) 0.27 10*3/uL 0.00-0.06 H LYMPH x10^3 (test code = 731-0) 1.06 10*3/uL 1.32-3.29 L MONO x10^3 (test code = 742-7) 0.28 10*3/uL 0.33-0.92 L EOS x10^3 (test code = 711-2) <0.03 0.03-0.39 L BASO x10^3 (test code = 704-7) <0.03 0.01-0.07 TOXIC CHANGES (test code = 803-7) Present A Lab Interpretation (test code = 65404-2) Abnormal [facility] METABOLIC PANEL (NA, K, CL, CO2, GLUCOSE, BUN, CREATININE, CA)2021-10-17 10:54:32* Test Item Value Reference Range Interpretation Comme nts NA (test code = 1723262732) 135 mmol/L 135-145 K (test code = 6398561183) 5.2 mmol/L 3.5-5.0 H Slight hemolysis CL (test code = 9418373249) 101 mmol/L 98-108 CO2 TOTAL (test code = 8985976815) 27 mmol/L 23-31 AGAP (test code = 8326919457) 2-16 BUN (test code = 1249716234) 21 mg/dL 7-23 Slight hemolysis GLUCOSE (test code = 7155225098) 153 mg/dL 70-110 H CREATININE (test code = 2195305324) 0.71 mg/dL 0.50-1.04 CALCIUM (test code = 2767168688) 8.3 mg/dL 8.6-10.6 L eGFR (test code = 0465518401) mL/min/1.73m2 LUCILLE (test code = LUCILLE) Association [...] imaging tests). Lab Interpretation (test code = 40168-3) [facility] 10:54:32* Test Item Value Reference Range Interpretation Comme nts MAGNESIUM (test code = 9988014998) 2.2 mg/dL 1.7-2.4 Lab Interpretation (test cod e = 61062-1) Normal [facility] 10:54:32* Test Item Value Reference Range Interpretation Comme nts PHOSPHORUS (test code = 7596805582) 5.9 mg/dL 2.5-5.0 H Lab Interpretation (test cod e = 75021-0) [facility] (NA, K, CL, CO2, GLUCOSE, BUN, CREATININE, CA)2021-10-17 10:54:32* Test Item Value Reference Range Interpretation Comme nts NA (test code = 0293855940) 135 mmol/L 135-145 K (test code = 8105880657) 5.2 mmol/L 3.5-5.0 H Slight hemolysis CL (test code = 1115975398) 101 mmol/L 98-108 CO2 TOTAL (test code = 1596949457) 27 mmol/L 23-31 AGAP (test code = 0026360324) 2-16 BUN (test code = 1741939405) 21 mg/dL 7-23 Slight hemolysis GLUCOSE (test code = 9114392309) 153 mg/dL 70-110 H CREATININE (test code = 7807063422) 0.71 mg/dL 0.50-1.04 CALCIUM (test code = 7667215181) 8.3 mg/dL 8.6-10.6 L eGFR (test code = 9830822301) mL/min/1.73m2 LUCILLE (test code = LUCILLE) Association [...] imaging tests). Lab Interpretation (test code = 07669-6) [facility] 10:54:32* Test Item Value Reference Range Interpretation Comme nts MAGNESIUM (test code = 2379796061) 2.2 mg/dL 1.7-2.4 Lab Interpretation (test cod e = 08835-6) [facility] 10:54:32* Test Item Value Reference Range Interpretation Comme nts PHOSPHORUS (test code = 2215201787) 5.9 mg/dL 2.5-5.0 H Lab Interpretation (test cod e = 27945-8) Abnormal [facility]ED[facility] [id number] 10:53:06* Test Item Value Reference Range Interpretation Comme nts ESR (test code = 5921404814) See_Comment H [Automated messa ge] The system which generated this result transmitted reference range: 0 - 20 mm/HR. The reference range was not used to interpret this result as normal/abnormal. Lab Interpretation (test code = 82520-7) [facility] [id number] 10:53:06* Test Item Value Reference Range Interpretation Comme nts ESR (test code = 4740709409) See_Comment H [Automated messa ge] The system which generated this result transmitted reference range: 0 - 20 mm/HR. The reference range was not used to interpret this result as normal/abnormal. Lab Interpretation (test code = 54196-4) [facility]normal [facility]2022-[facility]-13 11:13:05* Test Item Value Reference Range Interpretation Comme nts MAGNESIUM (test code = 1120624369) 2.3 mg/dL 1.7-2.4 Lab Interpretation (test cod e = 35886-8) Normal [facility] 11:13:05* Test Item Value Reference Range Interpretation Comme nts PHOSPHORUS (test code = 2179789098) 3.4 mg/dL 2.5-5.0 Lab Interpretation (test cod e = 72040-9) Normal [facility]13 11:13:05* Test Item Value Reference Range Interpretation Comme nts MAGNESIUM (test code = 9528659977) 2.3 mg/dL 1.7-2.4 Lab Interpretation (test cod e = 63934-2) Normal [facility] 11:13:05* Test Item Value Reference Range Interpretation Comme nts PHOSPHORUS (test code = 8530330185) 3.4 mg/dL 2.5-5.0 Lab Interpretation (test cod e = 06254-6) [facility] (NA, K, CL, CO2, GLUCOSE, BUN, CREATININE, CA)2021-10-16 11:13:04* Test Item Value Reference Range Interpretation Comme nts NA (test code = 3738700492) 135 mmol/L 135-145 K (test code = 8393684699) 4.6 mmol/L 3.5-5.0 CL (test code = 9245096874) 102 mmol/L 98-108 CO2 TOTAL (test code = 6501781755) 29 mmol/L 23-31 AGAP (test code = 7577705217) 2-16 BUN (test code = 0521917237) 24 mg/dL 7-23 H GLUCOSE (test code = 0369974824) 90 mg/dL 70-110 CREATININE (test code = 8551387810) 0.87 mg/dL 0.50-1.04 CALCIUM (test code = 1683233688) 8.0 mg/dL 8.6-10.6 L eGFR (test code = 1043923674) mL/min/1.73m2 LUCILLE (test code = LUCILLE) Association [...] imaging tests). Lab Interpretation (test code = 74125-8) Abnormal [facility] METABOLIC PANEL (NA, K, CL, CO2, GLUCOSE, BUN, CREATININE, CA)2021-10-16 11:13:04* Test Item Value Reference Range Interpretation Comme nts NA (test code = 2291115836) 135 mmol/L 135-145 K (test code = 3919658039) 4.6 mmol/L 3.5-5.0 CL (test code = 8051323673) 102 mmol/L 98-108 CO2 TOTAL (test code = 3351152554) 29 mmol/L 23-31 AGAP (test code = 2926749988) 2-16 BUN (test code = 1764258682) 24 mg/dL 7-23 H GLUCOSE (test code = 2897875088) 90 mg/dL 70-110 CREATININE (test code = 1872547160) 0.87 mg/dL 0.50-1.04 CALCIUM (test code = 1374702950) 8.0 mg/dL 8.6-10.6 L eGFR (test code = 6280715383) mL/min/1.73m2 LUCILLE (test code = LUCILLE) Association [...] imaging tests). Lab Interpretation (test code = 11038-6) [facility]normal [facility] 20 + LACTIC [id number] 10:59:55* Test Item Value Reference Range Interpretation Comme nts PH (test code = 2) 7.35-7.45 PCO2 (test code = 8824506099) See_Comment [Automated [employer]cer] The system which generated this result transmitted reference range: 35 - 45 mmHg. The reference range was not used to interpret this result as normal/abnormal. PO2 (test code = 7608337688) See_Comment L [Automated [employer]cer] The system which generated this result transmitted reference range: 80 - 100 mmHg. The reference range was not used to interpret this result as normal/abnormal. HCO3 (test code = 2032906552) See_Comment H [Automated [employer]cer] The system which generated this result transmitted reference range: 22 - 26 mEq/L. The reference range was not used to interpret this result as normal/abnormal. BE (test code = 8591003087) See_Comment [Automated messa ge] The system which generated this result transmitted reference range: -3.0 - 3.0 mEq/L. The reference range was not used to interpret this result as normal/abnormal. THB (test code = 7757388437) 13.7 g/dL 12.0-16.0 %O2HB (test code = 1300377564) 86.3 % 94.0-99.0 L %COHB ART (test code = 7265836896) 0.1 % 0.0-1.5 %METHB ART (test code = 1246920298) 0.1 % 0.4-1.5 L VOL%O2 ART (test code = 5481143529) 16.6 % 15.0-23.0 NA (test code = 8933231795) 135 mmol/L 135-145 K+ (test code = 0236714247) 4.6 mmol/L 3.5-5.0 AC CA IONZ (test code = 4740424235) 4.70 mg/dL 4.50-5.30 GLUCOSE (test code = 3180862987) 88 mg/dL 70-110 LACTIC ACID (test code = 1240078710) 1.41 mmol/L 0.50-2.20 QUES Lab Interpretation (test code = 62773-9) [facility] + LACTIC [id number] 10:59:55* Test Item Value Reference Range Interpretation Comme nts PH (test code = 2) 7.35-7.45 PCO2 (test code = 2534623791) See_Comment [Automated messa ge] The system which generated this result transmitted reference range: 35 - 45 mmHg. The reference range was not used to interpret this result as normal/abnormal. PO2 (test code = 9530803676) See_Comment L [Automated messa ge] The system which generated this result transmitted reference range: 80 - 100 mmHg. The reference range was not used to interpret this result as normal/abnormal. HCO3 (test code = 1183443885) See_Comment H [Automated messa ge] The system which generated this result transmitted reference range: 22 - 26 mEq/L. The reference range was not used to interpret this result as normal/abnormal. BE (test code = 7547712270) See_Comment [Automated messa ge] The system which generated this result transmitted reference range: -3.0 - 3.0 mEq/L. The reference range was not used to interpret this result as normal/abnormal. THB (test code = 8939049803) 13.7 g/dL 12.0-16.0 %O2HB (test code = 7676097891) 86.3 % 94.0-99.0 L %COHB ART (test code = 4979140641) 0.1 % 0.0-1.5 %METHB ART (test code = 4222794339) 0.1 % 0.4-1.5 L VOL%O2 ART (test code = 3399133354) 16.6 % 15.0-23.0 NA (test code = 9746063725) 135 mmol/L 135-145 K+ (test code = 9271166030) 4.6 mmol/L 3.5-5.0 AC CA IONZ (test code = 8951369053) 4.70 mg/dL 4.50-5.30 GLUCOSE (test code = 5247274128) 88 mg/dL 70-110 LACTIC ACID (test code = 3657761714) 1.41 mmol/L 0.50-2.20 QUES Lab Interpretation (test code = 16938-8) Abnormal [facility] WITH [id number] 10:54:01* Test Item Value Reference Range Interpretation [...] 32.3 g/dL 31.6-35.1 RDW-SD (test code = 15193-9) 47.0 fL 39.0-49.9 RDW-CV (test code = 788-0) 14.6 % 12.0-15.5 PLT (test code = 777-3) See_Comment [Automated message] The system which generated this result transmitted reference range: 166 - 358 10*3/?L. The reference range was not used to interpret this result as normal/abnormal. MPV (test code = 04177-3) 10.5 fL 9.5-12.9 NRBC/100 WBC (test code = 5294064001) See_Comment [Automated message] The system which generated this result transmitted reference range: 0.0 - 10.0 /100 WBCs. The reference range was not used to interpret this result as normal/abnormal. NRBC x10^3 (test code = 9883918779) See_Comment [Automated message] The system which generated this result transmitted reference range: 10*3/?L. The reference range was not used to interpret this result as normal/abnormal. GRAN MAT (NEUT) % (test code = 770-8) 85.6 % IMM GRAN % (test code = 0825039720) 1.10 % LYMPH % (test code = 736-9) 9.7 % MONO % (test code = 5905-5) 3.0 % EOS % (test code = 713-8) 0.5 % BASO % (test code = 706-2) 0.1 % GRAN MAT x10^3(ANC) (test code = 6516502552) 12.97 10*3/uL 1.88-7.09 H IMM GRAN x10^3 (test code = 1835783578) 0.16 10*3/uL 0.00-0.06 H LYMPH x10^3 (test code = 731-0) 1.47 10*3/uL 1.32-3.29 MONO x10^3 (test code = 742-7) 0.45 10*3/uL 0.33-0.92 EOS x10^3 (test code = 711-2) 0.08 10*3/uL 0.03-0.39 BASO x10^3 (test code = 704-7) <0.03 0.01-0.07 Lab Interpretation (test code = 64198-4) Abnormal [facility] WITH [id number] 10:54:01* Test Item Value Reference Range Interpretation [...] 32.3 g/dL 31.6-35.1 RDW-SD (test code = 59063-4) 47.0 fL 39.0-49.9 RDW-CV (test code = 788-0) 14.6 % 12.0-15.5 PLT (test code = 777-3) See_Comment [Automated message] The system which generated this result transmitted reference range: 166 - 358 10*3/?L. The reference range was not used to interpret this result as normal/abnormal. MPV (test code = 23093-2) 10.5 fL 9.5-12.9 NRBC/100 WBC (test code = 3484787093) See_Comment [Automated message] The system which generated this result transmitted reference range: 0.0 - 10.0 /100 WBCs. The reference range was not used to interpret this result as normal/abnormal. NRBC x10^3 (test code = 8988580733) See_Comment [Automated message] The system which generated this result transmitted reference range: 10*3/?L. The reference range was not used to interpret this result as normal/abnormal. GRAN MAT (NEUT) % (test code = 770-8) 85.6 % IMM GRAN % (test code = 7246501318) 1.10 % LYMPH % (test code = 736-9) 9.7 % MONO % (test code = 5905-5) 3.0 % EOS % (test code = 713-8) 0.5 % BASO % (test code = 706-2) 0.1 % GRAN MAT x10^3(ANC) (test code = 6987415211) 12.97 10*3/uL 1.88-7.09 H IMM GRAN x10^3 (test code = 5638439979) 0.16 10*3/uL 0.00-0.06 H LYMPH x10^3 (test code = 731-0) 1.47 10*3/uL 1.32-3.29 MONO x10^3 (test code = 742-7) 0.45 10*3/uL 0.33-0.92 EOS x10^3 (test code = 711-2) 0.08 10*3/uL 0.03-0.39 BASO x10^3 (test code = 704-7) <0.03 0.01-0.07 Lab Interpretation (test code = 11592-8) Abnormal [facility]-REACTIVE [id number] 23:24:07* Test Item Value Reference Range Interpretation Comme nts CRP (test code = 5406008476) 22.1 mg/dL <1.0 H Lab Interpretation (test cod e = 23941-5) Abnormal [facility]-REACTIVE [id number] 23:24:07* Test Item Value Reference Range Interpretation Comme nts CRP (test code = 0886699123) 22.1 mg/dL <1.0 H Lab Interpretation (test cod e = 92078-8) [facility]normal [facility] [id number] 23:21:42* Test Item Value Reference Range Interpretation Comments TROPONIN I (test code = 2960071250) 0.003 ng/mL See_Comment [Automated message] The system [...] of biotin. Lab Interpretation (test code = 28899-1) Normal [facility] [id number] 23:21:42* Test Item Value Reference Range Interpretation Comments TROPONIN I (test code = 4046688394) 0.003 ng/mL See_Comment [Automated message] The system [...] of biotin. Lab Interpretation (test code = 76957-6) [facility] (NA, K, CL, CO2, GLUCOSE, BUN, CREATININE, CA)2021-10-15 23:12:40* Test Item Value Reference Range Interpretation Comme nts NA (test code = 7043753391) 136 mmol/L 135-145 K (test code = 7055275893) 4.8 mmol/L 3.5-5.0 CL (test code = 4205691397) 104 mmol/L 98-108 CO2 TOTAL (test code = 8839549427) 26 mmol/L 23-31 AGAP (test code = 4075611022) 2-16 BUN (test code = 5718150059) 22 mg/dL 7-23 GLUCOSE (test code = 3845047303) 114 mg/dL 70-110 H CREATININE (test code = 9321010111) 0.77 mg/dL 0.50-1.04 CALCIUM (test code = 0059002520) 8.2 mg/dL 8.6-10.6 L eGFR (test code = 1084348140) mL/min/1.73m2 LUCILLE (test code = LUCILLE) Association [...] imaging tests). Lab Interpretation (test code = 80230-2) [facility] (NA, K, CL, CO2, GLUCOSE, BUN, CREATININE, CA)2021-10-15 23:12:40* Test Item Value Reference Range Interpretation Comme nts NA (test code = 3253585626) 136 mmol/L 135-145 K (test code = 8317321801) 4.8 mmol/L 3.5-5.0 CL (test code = 9773349507) 104 mmol/L 98-108 CO2 TOTAL (test code = 5378237117) 26 mmol/L 23-31 AGAP (test code = 7822742415) 2-16 BUN (test code = 3133420249) 22 mg/dL 7-23 GLUCOSE (test code = 1140034638) 114 mg/dL 70-110 H CREATININE (test code = 5910813881) 0.77 mg/dL 0.50-1.04 CALCIUM (test code = 1997884049) 8.2 mg/dL 8.6-10.6 L eGFR (test code = 6927863316) mL/min/1.73m2 LUCILLE (test code = LUCILLE) Association [...] imaging tests). Lab Interpretation (test code = 96554-0) Abnormal [facility] [id number] 21:55:57* Test Item Value Reference Range Interpretation Comments TROPONIN I (test code = 4922256788) 0.003 ng/mL See_Comment [Automated message] The system [...] of biotin. Lab Interpretation (test code = 08850-9) Normal [facility] [id number] 21:55:57* Test Item Value Reference Range Interpretation Comments TROPONIN I (test code = 7684685699) 0.003 ng/mL See_Comment [Automated message] The system [...] of biotin. Lab Interpretation (test code = 68787-5) [facility]* Test Item Value Reference Range Interpretation Comme nts Procalcitonin (test code = 6156817201) 0.15 ng/mL <0.08 H LUCILLE (test code [...] lung abscess/empyema. For further information please refer to:[email or web address] Lab Interpretation (test code = 32512-7) [facility] 19:07:46* Test Item Value Reference Range Interpretation Comme nts Procalcitonin (test code = 2733411028) 0.15 ng/mL <0.08 H LUCILLE (test code [...] lung abscess/empyema. For further information please refer to:[email or web address] Lab Interpretation (test code = 02280-0) [facility] [id number] 18:31:24* Test Item Value Reference Range Interpretation Comme nts NT-proBNP (test code = 7276834872) 43 pg/mL See_Comment [Automated message] The system which generated this result transmitted reference range: <=125. The reference range was not used to interpret this result as normal/abnormal. LUCILLE (test code = LUCILLE) Biotin has been reported to cause a negative bias, interpret results relative to patient's use of biotin. Lab Interpretation (test code = 16468-5) Normal [facility] [id number] 18:31:24* Test Item Value Reference Range Interpretation Comme nts NT-proBNP (test code = 7515413352) 43 pg/mL See_Comment [Automated message] The system which generated this result transmitted reference range: <=125. The reference range was not used to interpret this result as normal/abnormal. LUCILLE (test code = LUCILLE) Biotin has been reported to cause a negative bias, interpret results relative to patient's use of biotin. Lab Interpretation (test code = 07369-9) Normal [facility]2022-[facility]12 09:17:58* Test Item Value Reference Range Interpretation Comme nts Procalcitonin (test code = 4055447781) 0.15 ng/mL <0.08 H LUCILLE (test code [...] lung abscess/empyema. For further information please refer to:[email or web address] Lab Interpretation (test code = 85749-3) [facility]normal [facility]2022-[facility]-12 09:17:58* Test Item Value Reference Range Interpretation Comme nts Procalcitonin (test code = 0938559973) 0.15 ng/mL <0.08 H LUCILLE (test code [...] lung abscess/empyema. For further information please refer to:[email or web address] Lab Interpretation (test code = 33920-6) Abnormal [facility] METABOLIC PANEL (NA, K, CL, CO2, GLUCOSE, BUN, CREATININE, CA)2021-10-15 08:36:11* Test Item Value Reference Range Interpretation Comme nts NA (test code = 6680126851) 139 mmol/L 135-145 K (test code = 2323470615) 5.5 mmol/L 3.5-5.0 H Slight hemolysis CL (test code = 7622524408) 104 mmol/L 98-108 CO2 TOTAL (test code = 6291278451) 29 mmol/L 23-31 AGAP (test code = 1877254538) 2-16 BUN (test code = 6251833781) 17 mg/dL 7-23 Slight hemolysis GLUCOSE (test code = 9883286181) 131 mg/dL 70-110 H CREATININE (test code = 1882586994) 0.77 mg/dL 0.50-1.04 CALCIUM (test code = 2429120594) 8.5 mg/dL 8.6-10.6 L eGFR (test code = 9726228776) mL/min/1.73m2 LUCILLE (test code = LUCILLE) Association [...] imaging tests). Lab Interpretation (test code = 14849-0) Abnormal [facility] Lake[facility] [id number] 08:36:11* Test Item Value Reference Range Interpretation Comme nts MAGNESIUM (test code = 4994277179) 2.4 mg/dL 1.7-2.4 Lab Interpretation (test cod e = 94198-4) [facility] (NA, K, CL, CO2, GLUCOSE, BUN, CREATININE, CA)2021-10-15 08:36:11* Test Item Value Reference Range Interpretation Comme nts NA (test code = 7388803141) 139 mmol/L 135-145 K (test code = 0014396454) 5.5 mmol/L 3.5-5.0 H Slight hemolysis CL (test code = 3826985978) 104 mmol/L 98-108 CO2 TOTAL (test code = 2547713754) 29 mmol/L 23-31 AGAP (test code = 9124078268) 2-16 BUN (test code = 3512036367) 17 mg/dL 7-23 Slight hemolysis GLUCOSE (test code = 5697146905) 131 mg/dL 70-110 H CREATININE (test code = 5735994069) 0.77 mg/dL 0.50-1.04 CALCIUM (test code = 5561191735) 8.5 mg/dL 8.6-10.6 L eGFR (test code = 5589178553) mL/min/1.73m2 LUCILLE (test code = LUCILLE) Association [...] imaging tests). Lab Interpretation (test code = 42832-8) Abnormal [facility] [id number] 08:36:11* Test Item Value Reference Range Interpretation Comme nts MAGNESIUM (test code = 7580446293) 2.4 mg/dL 1.7-2.4 Lab Interpretation (test cod e = 07215-1) Normal [facility] LakeTroponin [id number] 08:21:08* Test Item Value Reference Range Interpretation Comments TROPONIN I (test code = 5586437915) 0.005 ng/mL See_Comment [Automated message] The system [...] of biotin. Lab Interpretation (test code = 78268-7) [id number]:21:08* Test Item Value Reference Range Interpretation Comments TROPONIN I (test code = 0619878004) 0.005 ng/mL See_Comment [Automated message] The system [...] of biotin. Lab Interpretation (test code = 49695-7) Normal [facility] WITH [id number] 07:37:26* Test Item Value Reference Range Interpretation [...] 33.0 g/dL 31.6-35.1 RDW-SD (test code = 26670-1) 47.4 fL 39.0-49.9 RDW-CV (test code = 788-0) 14.6 % 12.0-15.5 PLT (test code = 777-3) See_Comment [Automated message] The system which generated this result transmitted reference range: 166 - 358 10*3/?L. The reference range was not used to interpret this result as normal/abnormal. MPV (test code = 63146-6) 11.1 fL 9.5-12.9 NRBC/100 WBC (test code = 6929710225) See_Comment [Automated message] The system which generated this result transmitted reference range: 0.0 - 10.0 /100 WBCs. The reference range was not used to interpret this result as normal/abnormal. NRBC x10^3 (test code = 6583125930) <0.01 See_Comment [Automated message] The system which generated this result transmitted reference range: 10*3/?L. The reference range was not used to interpret this result as normal/abnormal. GRAN MAT (NEUT) % (test code = 770-8) 92.0 % IMM GRAN % (test code = 9363150711) 1.10 % LYMPH % (test code = 736-9) 5.0 % MONO % (test code = 5905-5) 1.8 % EOS % (test code = 713-8) 0.0 % BASO % (test code = 706-2) 0.1 % GRAN MAT x10^3(ANC) (test code = 7251152755) 20.65 10*3/uL 1.88-7.09 H IMM GRAN x10^3 (test code = 7929642671) 0.25 10*3/uL 0.00-0.06 H LYMPH x10^3 (test code = 731-0) 1.13 10*3/uL 1.32-3.29 L MONO x10^3 (test code = 742-7) 0.40 10*3/uL 0.33-0.92 EOS x10^3 (test code = 711-2) <0.03 0.03-0.39 L BASO x10^3 (test code = 704-7) 0.03 10*3/uL 0.01-0.07 Lab Interpretation (test code = 37315-7) Abnormal [facility] WITH [id number] 07:37:26* Test Item Value Reference Range Interpretation [...] 33.0 g/dL 31.6-35.1 RDW-SD (test code = 16226-9) 47.4 fL 39.0-49.9 RDW-CV (test code = 788-0) 14.6 % 12.0-15.5 PLT (test code = 777-3) See_Comment [Automated message] The system which generated this result transmitted reference range: 166 - 358 10*3/?L. The reference range was not used to interpret this result as normal/abnormal. MPV (test code = 11992-8) 11.1 fL 9.5-12.9 NRBC/100 WBC (test code = 9949658761) See_Comment [Automated message] The system which generated this result transmitted reference range: 0.0 - 10.0 /100 WBCs. The reference range was not used to interpret this result as normal/abnormal. NRBC x10^3 (test code = 4068715784) <0.01 See_Comment [Automated message] The system which generated this result transmitted reference range: 10*3/?L. The reference range was not used to interpret this result as normal/abnormal. GRAN MAT (NEUT) % (test code = 770-8) 92.0 % IMM GRAN % (test code = 0320493617) 1.10 % LYMPH % (test code = 736-9) 5.0 % MONO % (test code = 5905-5) 1.8 % EOS % (test code = 713-8) 0.0 % BASO % (test code = 706-2) 0.1 % GRAN MAT x10^3(ANC) (test code = 2288449070) 20.65 10*3/uL 1.88-7.09 H IMM GRAN x10^3 (test code = 8475863442) 0.25 10*3/uL 0.00-0.06 H LYMPH x10^3 (test code = 731-0) 1.13 10*3/uL 1.32-3.29 L MONO x10^3 (test code = 742-7) 0.40 10*3/uL 0.33-0.92 EOS x10^3 (test code = 711-2) <0.03 0.03-0.39 L BASO x10^3 (test code = 704-7) 0.03 10*3/uL 0.01-0.07 Lab Interpretation (test code = 13216-5) [facility]normal [facility] Lake[facility]G+COOX+NA+K+GLU+CA2+2021-10-15 07:28:14* Test Item Value Reference Range Interpretation Comme nts PH (test code = 2) 7.35-7.45 PCO2 (test code = 3502410264) See_Comment [Automated messa ge] The system which generated this result transmitted reference range: 35 - 45 mmHg. The reference range was not used to interpret this result as normal/abnormal. PO2 (test code = 6596422853) See_Comment H [Automated messa ge] The system which generated this result transmitted reference range: 80 - 100 mmHg. The reference range was not used to interpret this result as normal/abnormal. HCO3 (test code = 2021856820) See_Comment [Automated messa ge] The system which generated this result transmitted reference range: 22 - 26 mEq/L. The reference range was not used to interpret this result as normal/abnormal. BE (test code = 8704307546) See_Comment [Automated messa ge] The system which generated this result transmitted reference range: -3.0 - 3.0 mEq/L. The reference range was not used to interpret this result as normal/abnormal. THB (test code = 3206208317) 13.1 g/dL 12.0-16.0 %O2HB (test code = 9644519816) 98.7 % 94.0-99.0 %COHB ART (test code = 9009763622) 0.4 % 0.0-1.5 %METHB ART (test code = 2509002464) 0.0 % 0.4-1.5 L VOL%O2 ART (test code = 7985847713) 18.5 % 15.0-23.0 QUES NA (test code = 9547559114) 138 mmol/L 135-145 K+ (test code = 0321012181) 5.0 mmol/L 3.5-5.0 AC CA IONZ (test code = 0190599733) 4.50 mg/dL 4.50-5.30 GLUCOSE (test code = 0739615715) 138 mg/dL 70-110 H Lab Interpretation (test code = 51213-4) [facility]normal [facility]+COOX+NA+K+GLU+CA2+2021-10-15 07:28:14* Test Item Value Reference Range Interpretation Comme nts PH (test code = 2) 7.35-7.45 PCO2 (test code = 5591272813) See_Comment [Automated messa ge] The system which generated this result transmitted reference range: 35 - 45 mmHg. The reference range was not used to interpret this result as normal/abnormal. PO2 (test code = 5060752382) See_Comment H [Automated messa ge] The system which generated this result transmitted reference range: 80 - 100 mmHg. The reference range was not used to interpret this result as normal/abnormal. HCO3 (test code = 7684043497) See_Comment [Automated messa ge] The system which generated this result transmitted reference range: 22 - 26 mEq/L. The reference range was not used to interpret this result as normal/abnormal. BE (test code = 9062397078) See_Comment [Automated messa ge] The system which generated this result transmitted reference range: -3.0 - 3.0 mEq/L. The reference range was not used to interpret this result as normal/abnormal. THB (test code = 9006268107) 13.1 g/dL 12.0-16.0 %O2HB (test code = 0398845763) 98.7 % 94.0-99.0 %COHB ART (test code = 3339864393) 0.4 % 0.0-1.5 %METHB ART (test code = 2405420771) 0.0 % 0.4-1.5 L VOL%O2 ART (test code = 4731542381) 18.5 % 15.0-23.0 QUES NA (test code = 0480590004) 138 mmol/L 135-145 K+ (test code = 1066896828) 5.0 mmol/L 3.5-5.0 AC CA IONZ (test code = 7827762172) 4.50 mg/dL 4.50-5.30 GLUCOSE (test code = 8993761507) 138 mg/dL 70-110 H Lab Interpretation (test code = 13161-5) [facility]normal [facility]/AG COMBO RFLX [id number] 00:00:00* Test Item Value Reference Range Interpretation Comme nts HIV 1/2 4TH GEN, RFLX CONF ( test code = 3514) NON-REACTIVE Dwayne Bah [id number] 00:00:00* Test Item Value Reference Range Interpretation Comme nts RPR RESULT (test code = 3501) NON-REACTIVE RPR TITER (test code = 3500) NOT INDIC. TITER Dwayne MyersVAGINAL PATHOGENS DNA [id number] 00:00:00* Test Item Value Reference Range Interpretation Comme nts DEB SPECIES (test code = 29489) NEGATIVE G. VAGINALIS (test code = 83752) POSITIVE T. VAGINALIS (test code = 00166) NEGATIVE Dwayne MyersGC AND CHLAMYDIA, AMPLIFIED, [id number] 00:00:00* Test Item Value Reference Range Interpretation Comme nts GONORRHEA, NAAT (test code = 54542) NEGATIVE CHLAMYDIA, NAAT (test code = 81311) NEGATIVE Dwayne MyersHIV AB/AG COMBO RFLX [id number] 00:00:00* Test Item Value Reference Range Interpretation Comme nts HIV 1/2 4TH GEN, RFLX CONF ( test code = 3514) NON-REACTIVE Dwayne Bah [id number] 00:00:00* Test Item Value Reference Range Interpretation Comme nts RPR RESULT (test code = 3501) NON-REACTIVE RPR TITER (test code = 3500) NOT INDIC. TITER Dwayne MyersVAGINAL PATHOGENS DNA [id number] 00:00:00* Test Item Value Reference Range Interpretation Comme nts DEB SPECIES (test code = 22597) NEGATIVE G. VAGINALIS (test code = 88239) POSITIVE T. VAGINALIS (test code = 26184) NEGATIVE Dwayne Bah AustinGC AND CHLAMYDIA, AMPLIFIED, [id number] 00:00:00* Test Item Value Reference Range Interpretation Comme nts GONORRHEA, NAAT (test code = 77869) NEGATIVE CHLAMYDIA, NAAT (test code = 38164) NEGATIVE Dwayne Bah AustinHIV AB/AG COMBO RFLX [id number] 00:00:00* Test Item Value Reference Range Interpretation Comme nts HIV 1/2 4TH GEN, RFLX CONF ( test code = 3514) NON-REACTIVE Dwayne Bah [id number] 00:00:00* Test Item Value Reference Range Interpretation Comme nts RPR RESULT (test code = 3501) NON-REACTIVE RPR TITER (test code = 3500) NOT INDIC. TITER Dwayne MyersVAGINAL PATHOGENS DNA [id number] 00:00:00* Test Item Value Reference Range Interpretation Comme nts DEB SPECIES (test code = ) NEGATIVE G. VAGINALIS (test code = 91892) POSITIVE T. VAGINALIS (test code = 51890) NEGATIVE Dwayne Bah AustinGC AND CHLAMYDIA, AMPLIFIED, [id number] 00:00:00* Test Item Value Reference Range Interpretation Comme nts GONORRHEA, NAAT (test code = 19109) NEGATIVE CHLAMYDIA, NAAT (test code = 43619) NEGATIVE Dwayne Bah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
--- NOTE | 2025-04-24 20:55 | RAD REPORT ---
EXAMINATION: Head C Spine Mpr Wo Con CLINICAL INDICATION: Female, 54 years old. PAIN TECHNIQUE: Axial CT images from the skull base to the vertex without intravenous contrast. Axial CT i mages through the cervical spine were obtained without intravenous contrast. Sagittal and coronal reformatted images were created from the data set. Coronal and sagittal reformatted images were creat ed from the data set. One or more of the following dose reduction techniques were used: Automated exposure control, adjustment of the mA and/or kV according to patient size, and/or iterative reconstr uction. Unless otherwise specified, incidental findings do not require dedicated imaging follow-up. [id number]. COMPARISON: No prior exams FINDINGS: Head: INTRACRANIAL: No acute intracranial hemorrhage. No acute large vascular territory infarct. No hydroce phalus. No mass effect or midline shift. No significant white matter disease. VASCULATURE: No visualized abnormalities in the arteries or dural venous sinuses. SCALP/SKULL: No calvarial fracture identified. No acute soft tissue abnormality. SINUSES: The visualized paranasal sinuses are mostly clear. No significant mastoid fluid. Cervical spine: ALIGNMENT: The cervical spine has normal alignment without scoliosis or spondylolisthesis. BONE: Vertebral body heights are maintained. No aggressive osseous lesions. Interbody spacer at C5-6. DEGENERATIVE: Multilevel cervical spondylosis with evidence of bilateral neural foraminal narrowing. No high grade central spinal stenosis. SOFT TISSUE: No significant abnormalities in the soft tissue of the neck. The visualized lung apices are clear. IMPRESSION: No acute intracranial abnormality. No acute fracture or traumatic malalignment of the cervical spine.
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
--- NOTE | 2025-04-24 21:13 | RAD REPORT ---
EXAMINATION: Hip Left 2 View CLINICAL INDICATION: Female, 54 years old. PAIN COMPARISON: No prior exam. FINDINGS: No acute fracture. Nonspecific areas of lucency in the left femoral head and neck may reflect subchon dral cystic changes. There is also some sclerosis which is visible at the femoral head. No malalignment/dislocation. Other: n/a IMPRESSION: No acute left hip fracture. 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 Could confirmed wit h nonemergent MRI if indicated.
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
--- NOTE | 2025-04-24 21:14 | RAD REPORT ---
EXAMINATION: Forearm Left VIEWS: Two views CLINICAL INDICATION: Female, 54 years old. PAIN COMPARISON: No prior exam. IMPRESSION: No acute fracture. No acute soft tissue abnormality.
[2025-04-24] MEDS ORDERED: CIPROFLOXACIN HCL 500 MG TAB ONE (21:38)
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
[2025-04-24 22:09] VITALS: TEMP 98.4
[2025-04-24 22:10] VITALS: BP 157/96; O2SAT 99
== END 2025-04-24 21:59 | disposition home or self-care (01) ==
LOC: ER 19:44
DX: M87.9 Osteonecrosis, unspecified (principal); S50.12XA Contusion of left forearm, initial encounter; N39.0 Urinary tract infection, site not specified; V49.9XXA Car occupant (driver) (passenger) injured in unspecified traffic accident, initial encounter
CPT/HCPCS: 70450; 71250; 72125; 74176; 81001; 99283